=== PATIENT | female | born 1960 | race Caucasian/White ===

== ENCOUNTER 2023-11-20 21:50 | Emergency (ER) | payer MEDICARE, SELFPAY ==
[2023-11-20] VITALS (10 sets, daily range): BP systolic 104–170; BP diastolic 76–97; PULSE 72–151; RESP 13–28; TEMP 37.1; O2SAT 86–98; BMI 34.4
--- NOTE | 2023-11-20 22:09 | ECG_ITS ---
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: : 1960 Requested By: MADISON MAGANA Order Number: [id number] Reading MD: NISHI SLATER Measurements Intervals [place] Rate: 108 P: -92379 [place]: -85271 QRS: 96 QRSD: 110 T: -69 QT: 318 QTc: 382 Interpretive Statements 56219 Atrial fibrillation with rapid ventricular response [address] depression, probably digitalis effect 73441 Twave abnormality, possible inferolateral ischemia or digitalis effect 7102 Moderate right axis deviation 9150 abnormal ECG Compared to ECG 04/09/2022 14:25:17 ST (T wave) deviation now present Possible ischemia now present Right-axis deviation now present Sinus rhythm no longer present Electronically Signed On 11-21-2023 21:41:51 EDT by NISHI SLATER
--- NOTE | 2023-11-20 22:09 | XR_ITS ---
The [address] [address] Patient Name: KAYLA HEATH MRN: [id number] date: 1960 Sex: F Assigned Patient Location: ER Current Patient Location: ER Accession/Order Number: [id number] Exam Date: 11/20/2023 22:33 Report Date: 11/20/2023 22:56 At the request of: YASMIN NICHOLS Procedure: XR chest 1V EXAM: XR chest 1V HISTORY: shortness of breath COMPARISON: None. TECHNIQUE: Chest X-ray AP, 1 view FINDINGS: Support devices: Median sternotomy wires are in place. Lungs/pleura: No consolidation, effusion, or pneumothorax. Heart and mediastinum: Mild cardiomegaly. Pericardial effusion cannot be excluded. Echocardiography is recommended if clinically warranted. Bones: No acute abnormality identified. XR/XR chest 1V Impression: Mild cardiomegaly. Pericardial effusion cannot be excluded. Echocardiography is recommended if clinically warranted. Electronically authenticated by: RUSTY WOOD Date: 11/20/2023 22:56
--- NOTE | 2023-11-20 22:12 | ED_ITS ---
HPI - General Adult General Chief complaint: Nausea/Vomiting/Diarrhea Stated complaint: VOMITING Time Seen by Provider: 11/20/23 21:58 Source: patient Mode of arrival: ambulance Limitations: no limitations History of Present Illness HPI narrative: Patient arrived by EMS from home with increasing shortness of breath and vomiting. Patient developed cough, fatigue and achiness yesterday. Today she developed headache, nausea and vomiting. Daughter with similar symptoms at home. Patient called Dr Mccormack and he called in antibiotics for the patient. She told me that she has not been able to take her cardiac meds.Hx of CAD/CABG. She denied any chest pain, pressure or tightness. Denied history of AFib or pulmonary disease. 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 EMS started peripheral IV access, give the patient IV Zofran and started normal saline IV fluid bolus. Related Data Home Medications Medication Instructions Recorded Confirmed atorvastatin 20 mg tablet 20 mg PO DAILY 11/20/23 11/20/23 ezetimibe 10 mg tablet 10 mg PO DAILY 11/20/23 11/20/23 ibuprofen 800 mg tablet 800 mg PO Q6H PRN fever or pain 11/20/23 11/20/23 lisinopril 40 mg tablet 40 mg PO DAILY 11/20/23 11/20/23 metformin 500 mg tablet 500 mg PO BID 11/20/23 11/20/23 metoprolol tartrate 50 mg tablet 50 mg PO Q12H 11/20/23 11/20/23 pantoprazole 40 mg tablet,delayed 40 mg PO DAILY 11/20/23 11/20/23 release semaglutide 0.25 mg or 0.5 mg (2 0.25 mg subcut .weekly 11/20/23 11/20/23 mg/3 mL) subcutaneous pen injector (Ozempic) Allergies Allergy/AdvReac Type Severity Reaction Status Date / Time No Known Drug Allergies Allergy Verified 11/20/23 21:54 PFSH PFSH Social History Smoking status: Never smoker Exam Narrative Exam Narrative: Nurses notes and vital signs reviewed and patient IS hypoxic with room air pulse ox 86%. afebrile General: uncomfortable. Skin: Warm, dry, no pallor noted. No rash. Head: Normocephalic, atraumatic. Neck: Supple, non-tender. No cervical lymphadenopathy. No meningismus. Eye: Pupils are equal, round and EOMI. No scleral icterus. Ears, Nose, Mouth, and Throat: Oral mucosa is dry Cardiovascular: Irregular rhythm with borderline tachycardia Respiratory: No accessory muscle use or respiratory distress. Lungs with diffuse end expiratory wheezing and scattered rhonchi Back: No CVA tenderness Musculoskeletal: normal ROM, no calf or popliteal tenderness, no lower extremity edema/swelling GI: Abdomen is soft, non-distended. Normal bowel sounds. No tenderness to palpation. No rebound, guarding, or rigidity noted. Neurological: A&O x4. No cranial nerve dysfunction observed. No truncal ataxia. Moves all extremities. Sensation intact. Psychiatric: Cooperative and interactive. Normal mood and affect. Constitutional Vital Signs, click to edit/add: Last Vital Signs Temp 98.8 F 11/20/23 21:51 Pulse 112 H 11/20/23 23:29 Resp 13 11/20/23 23:29 BP 104/76 11/20/23 23:29 Pulse Ox 94 L 11/20/23 23:29 O2 Del Method Nasal Cannula 11/20/23 22:00 O2 Flow Rate 4 11/20/23 22:00 Course Vital Signs Vital signs: Vital Signs Temperature 98.8 F 11/20/23 21:51 Pulse Rate 72 11/20/23 21:51 Respiratory Rate 18 11/20/23 21:51 Blood Pressure 170/97 H 11/20/23 21:51 Pulse Oximetry 86 L 11/20/23 21:51 Oxygen Delivery Method Room Air 11/20/23 21:51 Temperature 98.8 F 11/20/23 21:51 Pulse Rate 112 H 11/20/23 23:29 Respiratory Rate 13 11/20/23 23:29 Blood Pressure 104/76 11/20/23 23:29 Pulse Oximetry 94 L 11/20/23 23:29 Oxygen Delivery Method Nasal Cannula 11/20/23 22:00 Oxygen Delivery Flow Rate 4 11/20/23 22:00 Medical Decision Making MDM Narrative Medical decision making narrative: Patient was placed on media monitor and EKG obtained. Blood drawn and sent for evaluation, including blood cultures, procalcitonin and lactate per sepsis protocol. Urine also ordered to be obtained and sent for testing. Portable chest x-ray ordered. The patient was ordered to have an ABG and also to get a DuoNeb treatment. She was further ordered to receive IV Solu-Medrol and another liter of normal saline IV fluid. IV Toradol for pain. CBC normal. Lactate elevated at 2.7 so she was ordered to receive IV Levaquin, although her Influenza swab was positive so it is likely a viral etiology rather than baterical. CMP unremarkable. Troponin elevated at 76. BNP elevated at 14,375. CXR with mild cardiomegaly. No pulmonary edema or infiltrate noted. ABG = pH 7.3, pCO2 47, paO2 62 Patient ordered to receive heparin bolus and drip to treat her NSTEMI. The patient sees Dr. Mas, local plate maker zinc affiliated with [facility]. Call was placed to [facility] to discuss transfer and they told that they are not taking patient transfers at this time. They do not have any bed availability tonight and do not anticipate having bed availability tomorrow either. I spoke with the patient and she was agreeable to go to the nearest facility with cardiac capability which is [facility]. I spoke with Dr Greenwood - [place] [facility] and after discussing the patient's case, our inability to transfer to [facility] and the treatment initiated in the ED, he accepted the patient's transfer to their facility. Patient understands lack of bed availability at [facility] and agreed to go to nearest facility with cardiology, which [place] [facility] After I talked with Dr Greenwood the patient's [id number] panel resulted - she is positive for influenza A as noted above and was given dose of Tamiflu orally. Lab Data Lab results reviewed: Yes I reviewed the patient's lab results Labs: Lab Results 11/20/23 11/20/23 11/20/23 Range/Units 22:23 22:29 23:44 WBC 7.5 (4.0-11.0) 10^3/uL RBC 4.42 (4.20-5.40) 10^6/uL Hgb 12.5 (12.0-16.0) g/dL Hct 41.1 (36.0-48.0) % MCV 93.0 (81.0-99.0) fL MCH 28.3 (26.7-34.0) pg MCHC 30.4 (29.9-35.2) g/dL RDW 14.5 (11.0-15.0) % Plt Count 197 (150-450) 10^3/uL MPV 9.8 (9.5-13.5) fL Seg Neuts % (Manual) 87.0 Lymphocytes % (Manual) 2.0 L (20.5-60.0) % Atypical Lymphs % (Man) 5.0 % Monocytes % (Manual) 6.0 (1.7-12.0) % Eosinophils % (Manual) 0.0 L (0.9-7.0) % Basophils % (Manual) 0.0 L (0.2-2.0) % Neutrophils # (Manual) 6.52 H (1.4-6.5) 10^3/uL Lymphocytes # (Manual) 0.15 L (1.20-3.80) 10^3/uL Abs Atypical Lymphs Man 0.37 Monocytes # (Manual) 0.45 (0.30-0.80) 10^3/uL Eosinophils # (Manual) 0.00 (0.00-0.70) 10^3/uL Basophils # (Manual) 0.00 (0.00-0.10) 10^3/uL Toxic Granulation 4+ Toxic Vacuolation 1+ PT 11.8 H (9.0-11.6) sec INR 1.12 APTT 24.7 (22.3-36.2) sec Puncture Site L radial ABG pH 7.289 L* (7.350-7.450) ABG pCO2 46.9 H (35.0-45.0) mmHg ABG pO2 62.1 L (80.0-100.0) mmHg ABG HCO3 22.5 (22.0-26.0) mmol/L ABG O2 Saturation 90.0 % ABG Base Excess -4.1 L (-2.0-2.0) mmol/L Gavin Test Positive (POSITIVE) O2 Liters/Min 3 Sodium 140 (136-145) mmol/L Potassium 3.6 (3.5-5.1) mmol/L Chloride 103 (98-107) mmol/L Carbon Dioxide 24.3 (21.0-32.0) mmol/L Anion Gap 16.3 BUN 16.0 (7.0-18.0) mg/dL Creatinine 1.27 H (0.55-1.02) mg/dL Est GFR ( Amer) 52 L (>=60) Est GFR (Non-Af Amer) 43 L (>=60) BUN/Creatinine Ratio 12.6 Glucose 194 H (74-106) mg/dL Lactate 2.7 H* (0.4-2.0) mmol/L Calcium 9.1 (8.5-10.1) mg/dL Total Bilirubin 0.6 (0.2-1.0) mg/dL AST 31 (15-37) U/L ALT 33 (14-59) U/L Alkaline Phosphatase 101 (46-116) U/L Troponin I High Sens 76.4 H* (4.0-51.3) pg/mL NT-Pro-B Natriuret Pep 35311.0 H* (<=900.0) pg/mL Total Protein 6.7 (6.4-8.2) g/dL Albumin 3.0 L (3.4-5.0) g/dL Globulin 3.7 g/dL Albumin/Globulin Ratio 0.8 Procalcitonin 0.07 (0.00-0.50) ng/mL Adenovirus (PCR) Not detected (NOT DETECTE) C. pneumoniae DNA (PCR) Not detected (NOT DETECTE) Coronavirus Type OC43 Not detected (NOT DETECTE) Coronavirus Type HKU1 Not detected (NOT DETECTE) Coronavirus Type 229E Not detected (NOT DETECTE) Coronavirus Type NL63 Not detected (NOT DETECTE) Human Metapneumovir PCR Not detected (NOT DETECTE) Influ A (H1N1/09) PCR Detected A (NOT DETECTE) M. pneumoniae (PCR) Not detected (NOT DETECTE) Parainfluenza PCR Not detected (NOT DETECTE) Parainfluenza 2 (PCR) Not detected (NOT DETECTE) Parainfluenza 3 (PCR) Not detected (NOT DETECTE) Parainfluenza 4 (PCR) Not detected (NOT DETECTE) RSV (RT-PCR) Not detected (NOT DETECTE) Entero/Rhino (PCR) Not detected (NOT DETECTE) SARS-CoV-2 (PCR) Not detected (NOT DETECTE) Bordetella pertussis (PCR) Not detected (NOT DETECTE) B parapertussis DNA PCR Not detected (NOT DETECTE) Influenza Type B (PCR) Not detected (NOT DETECTE) Imaging Data Chest x-ray: Radiologist's impression: ITS Impressions Chest X-Ray 11/20/23 22:09 Impression: Mild cardiomegaly. Pericardial effusion cannot be excluded. Echocardiography is recommended if clinically warranted. Electronically authenticated by: RUSTY WOOD Date: 11/20/2023 22:56 ECG Data Attestation: I personally reviewed and interpreted this ECG as follows: Interpretation: EKG interpretation: Emergency Department physician interpretation. Rapid atrial fibrillation at 108bpm. Moderate right axis. Nonspecific T wave changes with subtle STD/TWI. No ST segment elevation or deep depression. Critical Care Time Critical Care Time Total Critical Care Time: 65 Attestation: Critical Care Time: 65 minutes, critical care time is separate from any proc edures that are performed. The following was considered in the determination of critical care but not limited to the level medical decision-making, intensive cardiac and/or respiratory monitor, frequent vital sign monitoring, evaluation of laboratory studies, evaluation of a radiographic studies, oxygen monitoring and constant monitoring. Discharge Plan Discharge Chief Complaint: Nausea/Vomiting/Diarrhea Clinical Impression: Acute non-ST elevation myocardial infarction (NSTEMI), Atrial fibrillation, new onset, Hypoxia, Influenza A Patient Disposition: [facility] Time of Disposition Decision: 23:06 Discharge Location: [facility]
[2023-11-20] MEDS: IPRATROPIUM/ALBUTEROL SULFATE 3 ML AMPUL.NEB IH (22:27)
[2023-11-20] MEDS: 0.9 % SODIUM CHLORIDE 1,000 ML 999 ML IV (22:27)
[2023-11-20] MEDS: METHYLPREDNISOLONE SOD SUCC PF 125 MG/2 ML VIAL IVP (22:27)
--- NOTE | 2023-11-20 22:27 | RESP.RT ---
Duoneb given by nursing.
[2023-11-20 22:37] LABS: Adenovirus NOT DETECTED (NOT DETECTE); Coronavirus 229E NOT DETECTED (NOT DETECTE); Coronavirus HKU1 NOT DETECTED (NOT DETECTE); Coronavirus NL63 NOT DETECTED (NOT DETECTE); Coronavirus OC43 NOT DETECTED (NOT DETECTE); Human Metapneumovirus NOT DETECTED (NOT DETECTE); Human Rhinovirus/Enterovirus NOT DETECTED (NOT DETECTE); Influenza B NOT DETECTED (NOT DETECTE); Parainfluenza Virus 1 NOT DETECTED (NOT DETECTE); Parainfluenza Virus 2 NOT DETECTED (NOT DETECTE); SARS-CoV-2 NOT DETECTED (NOT DETECTE)
[2023-11-20 22:38] LABS: Bordetella parapertussis NOT DETECTED (NOT DETECTE); Mycoplasma pneumoniae NOT DETECTED (NOT DETECTE); Parainfluenza Virus 3 NOT DETECTED (NOT DETECTE); Parainfluenza Virus 4 NOT DETECTED (NOT DETECTE); Respiratory Syncytial Virus NOT DETECTED (NOT DETECTE)
[2023-11-20 22:42] LABS: Hematocrit 41.1 % (36.0-48.0); Hemoglobin 12.5 g/dL (12.0-16.0); Mean Corpuscular HGB Conc 30.4 g/dL (29.9-35.2); Mean Corpuscular Hemoglobin 28.3 pg (26.7-34.0); Mean Platelet Volume 9.8 fL (9.5-13.5); Platelet Count 197 10^3/uL (150-450); Red Blood Count 4.42 10^6/uL (4.20-5.40); Red Cell Distribution Width 14.5 % (11.0-15.0); White Blood Count 7.5 10^3/uL (4.0-11.0)
[2023-11-20] MEDS: KETOROLAC TROMETHAMINE 30 MG/ML VIAL IVP (22:42)
[2023-11-20 23:03] LABS: Alanine Aminotransferase 33 U/L (14-59); Albumin Globulin Ratio 0.8; Alkaline Phosphatase 101 U/L (46-116); Anion Gap 16.3; Aspartate Amino Transferase 31 U/L (15-37); BUN Creatinine Ratio 12.6; Bilirubin Total 0.6 mg/dL (0.2-1.0); Calcium 9.1 mg/dL (8.5-10.1); Carbon Dioxide 24.3 mmol/L (21.0-32.0); Chloride 103 mmol/L (98-107); Estimated GFR (African America 52 (>=60); Estimated GFR (Non-African Ame 43 (>=60); Globulin 3.7 g/dL; Glucose 194 mg/dL (74-106); Potassium 3.6 mmol/L (3.5-5.1); Sodium 140 mmol/L (136-145); Total Protein 6.7 g/dL (6.4-8.2)
[2023-11-20 23:12] LABS: Atypical Lymphocytes Abs Man 0.37; Lymphocytes Absolute Manual 0.15 10^3/uL (1.20-3.80); Monocytes Absolute Manual 0.45 10^3/uL (0.30-0.80); Segmented Neut Absolute Manual 6.52 10^3/uL (1.4-6.5)
[2023-11-20 23:13] LABS: PROCALCITONIN 0.07 ng/mL (0.00-0.50); Toxic Granulation 4+; Toxic Vacuolation 1+
[2023-11-20 23:16] LABS: Lactate/Lactic Acid 2.7 mmol/L (0.4-2.0); Troponin I High Sensitivity 76.4 pg/mL (4.0-51.3)
[2023-11-20] MEDS: ONDANSETRON PF 4 MG/2 ML VIAL IV (23:22)
[2023-11-20] MEDS: HYDROMORPHONE HCL 1 MG/ML CARTRIDGE IVP (23:26)
[2023-11-20 23:39] LABS: Influenza A\\H1-2009 DETECTED (NOT DETECTE)
[2023-11-20] MEDS: LEVOFLOXACIN IN DEXTROSE 5 % 750 MG/150 ML IV.SOLN 100 MG IV (23:39)
[2023-11-20 23:46] LABS: INR 1.12; Partial Thromboplastin Time 24.7 sec (22.3-36.2); Prothrombin Time 11.8 sec (9.0-11.6)
[2023-11-20 23:56] LABS: ABG PCO2 46.9 mmHg (35.0-45.0); Allen Test POSITIVE (POSITIVE); Base Excess ABG -4.1 mmol/L (-2.0-2.0); HCO3 ABG 22.5 mmol/L (22.0-26.0); O2 Mode NASAL CANNULA; PO2 ABG 62.1 mmHg (80.0-100.0)
[2023-11-20] MEDS: HEPARIN SODIUM,PORCINE/D5W 25,000 UNIT/500 ML IV.SOLN 20.1600000000000001 UNIT IV (23:56)
[2023-11-20 23:57] LABS: Liters per Minute 3; Puncture Site L RADIAL
[2023-11-20] MEDS: HEPARIN SODIUM (PORCINE) 5,000 UNIT/ML VIAL 4000 UNIT IV (23:57)
[2023-11-20 23:58] LABS: pH ABG 7.289 (7.350-7.450)
--- NOTE | 2023-11-21 00:19 | PC.NURSE ---
Patient reports N/V/D today, has sick family member in the home with the same symptoms. She was given zofran by EMS on the way to this ED and is feeling less nauseous at this time
--- NOTE | 2023-11-21 00:23 | PC.NURSE ---
Patient very uncomfortable appearing at this time. She is moaning and fidgeting in the bed. She had audible wheezes, but the biggest complaint at this time is her headache. Dr. Ortega notified.
--- NOTE | 2023-11-21 00:24 | PC.NURSE ---
Patient states that the Toradol did not help her headache at all. Dr Ortega notified.
--- NOTE | 2023-11-21 00:27 | PC.NURSE ---
Patient resting more comfortably at this time. States that the Dilaudid helped her headache and she feels that she can rest. Heparin drip started at this time.
[2023-11-21] MEDS: OSELTAMIVIR PHOSPHATE 75 MG CAPSULE PO (01:14)
== END 2023-11-21 01:41 | disposition short-term general hospital (02) ==
PROVIDERS: Emergency Provider Emergency Medicine; PCP Family Medicine
DX: I21.4 Non-ST elevation (NSTEMI) myocardial infarction (principal); I48.91 Unspecified atrial fibrillation; R09.02 Hypoxemia; J10.1 Influenza due to other identified influenza virus with other respiratory manifestations; Z20.822 Contact with and (suspected) exposure to COVID-19; I25.10 Atherosclerotic heart disease of native coronary artery without angina pectoris; Z95.1 Presence of aortocoronary bypass graft; F17.210 Nicotine dependence, cigarettes, uncomplicated; Z79.899 Other long term (current) drug therapy; Z79.84 Long term (current) use of oral hypoglycemic drugs
CPT/HCPCS: 0202U; 36415; 36600; 71045; 80053; 82805; 83605; 83880; 84145; 84484; 85007; 85027; 85610; 85730; 87040; 93005; 94640; 96361; 96365; 96375; 99285; J1170; J2930

== ENCOUNTER 2023-11-26 19:28 | Inpatient (IN) | payer MEDICARE, SELFPAY ==
[2023-11-26] VITALS (30 sets, daily range): BP systolic 82–120; BP diastolic 56–84; PULSE 55–106; RESP 12–21; TEMP 36.3; O2SAT 77–98; BMI 33.0
--- NOTE | 2023-11-26 19:53 | ECG_ITS ---
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
--- NOTE | 2023-11-26 19:54 | CT_ITS ---
The [address] [address] Patient Name: KAYLA HEATH MRN: [id number] date: 1960 Sex: F Assigned Patient Location: ER Current Patient Location: ED.MAIN Accession/Order Number: [id number] Exam Date: 11/26/2023 20:43 Report Date: 11/26/2023 21:43 At the request of: YASMIN NICHOLS Procedure: CT abdomen pelvis w con CT ABDOMEN AND PELVIS WITH CONTRAST: INDICATION: abdominal pain. COMPARISON: None. TECHNIQUE:Multiple thin section transaxial slices were acquired through the abdomen and pelvis with intravenous contrast. Coronal and sagittal reconstructed images were reviewed. Oral contrastWas not administered. FINDINGS: LOWER CHEST: There are dependent changes in the lung bases. LIVER: There is a tiny cyst in the anterior liver. GALLBLADDER AND BILIARY SYSTEM: No obvious ductal dilation. The gallbladder is not visualized and may be absent or contracted. SPLEEN: The spleen is unremarkable. PANCREAS: The pancreas is unremarkable. ADRENAL GLANDS: The left adrenal nodule measuring 1.7 cm. The right adrenal gland is within normal limits. KIDNEYS AND URETERS: There is no hydronephrosis of the kidneys.Cortical base scarring is present in both kidneys. There are nonobstructive left intrarenal calculi. Ureters are within normal limits without obstructing urologic calcification. VASCULATURE: There is heavy atherosclerotic plaque abdominal aorta without aneurysm. PERITONEUM/RETROPERITONEUM: Peritoneum/retroperitoneum is unremarkable. LYMPH NODES: No suspicious lymphadenopathy. GASTROINTESTINAL TRACT: There is no small bowel obstruction. There is a large amount retained feces in the rectal vault concerning for fecal impaction.There is very faint pericolonic fat stranding and minimal wall thickening of the distal descending colon which is concerning for colitis. There is also some enhancing wall thickening of the distal stomach which may represent gastritis.The appendix is visualized and is not inflamed. BLADDER: The urinary bladder is unremarkable. REPRODUCTIVE SYSTEM: The uterus is absent. BODY WALL: There is a small fat-containing umbilical hernia and another small fat-containing supraumbilical hernia. BONES: Postsurgical changes are present from posterior spinal fusion of L3-S1. There is retrolisthesis of L2-L3. There is severe degenerative disc disease from L1 through L3. CT/CT abdomen pelvis w con IMPRESSION: 1. Faint pericolonic fat stranding and wall thickening of the distal descending colon concerning for colitis. 2. Enhancing wall thickening of the distal stomach concerning for gastritis. Electronically authenticated by: GISELA MCKEON Date: 11/26/2023 21:43
--- NOTE | 2023-11-26 20:19 | ED.ABDPAIN1 ---
HPI - Abdominal Pain General Chief Complaint: Abdominal Pain Stated Complaint: Weakness Time Seen by Provider: 11/26/23 19:40 Source: patient Mode of arrival: ambulance Limitations: no limitations History of Present Illness HPI narrative: Patient felt like she was going to pass out as she got out of the shower. She was dizzy and felt weak all over . She did not lose consciousness or fall. She called 911. By the time that they arrived, she had midline abdominal pain. They gave her Fentanyl and zofran and started NS IVF. She arrives complaining of continued pain and nausea - she also asks for a bed ocampo - has urge to pass stool. Related Data Home Medications ?Medication ?Instructions ?Recorded ?Confirmed atorvastatin 20 mg tablet 20 mg PO DAILY 11/20/23 11/20/23 ezetimibe 10 mg tablet 10 mg PO DAILY 11/20/23 11/20/23 ibuprofen 800 mg tablet 800 mg PO Q6H PRN fever or pain 11/20/23 11/20/23 lisinopril 40 mg tablet 40 mg PO DAILY 11/20/23 11/20/23 metformin 500 mg tablet 500 mg PO BID 11/20/23 11/20/23 metoprolol tartrate 50 mg tablet 50 mg PO Q12H 11/20/23 11/20/23 pantoprazole 40 mg tablet,delayed 40 mg PO DAILY 11/20/23 11/20/23 release semaglutide 0.25 mg or 0.5 mg (2 0.25 mg subcut .weekly 11/20/23 11/20/23 mg/3 mL) subcutaneous pen injector (Ozempic) Allergies Allergy/AdvReac Type Severity Reaction Status Date / Time No Known Drug Allergies Allergy Verified 11/20/23 21:54 PFSH PFS Social History Smoking status: Never smoker Exam Narrative Exam Narrative: Nurses notes and vital signs reviewed and patient IS hypoxic - Room air pulse ox measured at 88%. She is hypotensive Afebrile General: Anxious and uncomfortable. Skin: Warm, dry, no pallor noted. No rash. Eye: Pupils are equal, round and EOMI. No scleral icterus. Ears, Nose, Mouth, and Throat: Oral mucosa is dry Cardiovascular: Regular Rate and Rhythm without murmur, gallop or rub. Respiratory: No accessory muscle use or respiratory distress. Lungs are clear to auscultation, no wheezing, rales or rhonchi Musculoskeletal: normal ROM, no calf or popliteal tenderness, no lower extremity edema/swelling GI: Abdomen is soft, non-distended. Normal bowel sounds. No Solid or pulsatile masses appreciated. Mid low tenderness to palpation. No rebound or rigidity noted, But she has some guarding. Neurological: A&O x4. No cranial nerve dysfunction observed. No truncal ataxia. Moves all extremities. Sensation intact. Psychiatric: Cooperative and interactive. Normal mood and affect. Constitutional Vital Signs, click to edit/add: Last Vital Signs Temp 97.4 F L 11/26/23 19:38 Pulse 84 11/26/23 21:33 Resp 14 11/26/23 21:33 BP 120/84 11/26/23 21:33 Pulse Ox 96 11/26/23 21:33 O2 Del Method Nasal Cannula 11/26/23 20:47 O2 Flow Rate 2 11/26/23 20:47 Course Vital Signs Vital signs: Vital Signs Pulse Rate 84 11/26/23 19:37 Respiratory Rate 16 11/26/23 19:37 Pulse Oximetry 81 L 11/26/23 19:37 Temperature 97.4 F L 11/26/23 19:38 Pulse Rate 84 11/26/23 21:33 Respiratory Rate 14 11/26/23 21:33 Blood Pressure 120/84 11/26/23 21:33 Pulse Oximetry 96 11/26/23 21:33 Oxygen Delivery Method Nasal Cannula 11/26/23 20:47 Oxygen Delivery Flow Rate 2 11/26/23 20:47 MDM - Abdominal Pain MDM Narrative Medical decision making narrative: I saw this patient last week when she had her non-ST elevation OR. She told me that they got a cardiac catheterization but found no blockage and therefore no stents were placed. She was diagnosed with new onset atrial fibrillation just discharged yesterday. On arrival To our emergency department for this visit, the patient is hypotensive. She has normal saline IV fluids running from EMS. I ordered an additional liter to be given. Patient was placed on radiation monitor and EKG obtained. Blood drawn and sent for evaluation. She was ordered to undergo CT scanning of the abdomen pelvis with IV contrast. Due to hypotension and abdominal pain there is concern for aortic aneurysm or dissection. White blood cell count mildly elevated 12.7. Normal hemoglobin and hematocrit. Normal platelets. Metabolic profile reveals normal sodium, mildly decreased potassium at 3.3, normal chloride and bicarb. BUN slightly elevated at 34. Creatinine slightly elevated at 1.7. Glucose elevated at 390. Total bilirubin elevated 1.3. AST and ALT also elevated. Alk phos normal. Lipase minimally elevated at 86. Troponin was negative. CT a/p = Pericolonic fat stranding and wall thickening of the distal descending colon concerning for colitis. She does have a large amount of retained feces in the rectal vault concerning for fecal impaction, according to the radiologist. Shortly after she arrived she passed a very large amount of regular-appearing stool. However, about 2 hours later, she passed a large amount of bloody stool after getting CT scan. She was ordered to receive IV Cipro and IV Flagyl. her BP normalized after getting the NS IVF boluses. Call placed to the tele hospitalist to discuss admission. The patient will be admitted to Dr Mccormack's service for colitis and lower GI bleed. She will be inpatient, [facility]. Lab Data Attestation: I reviewed the patient's lab results. Labs: Lab Results 11/26/23 Range/Units 20:18 WBC 12.7 H (4.0-11.0) 10^3/uL RBC 5.65 H (4.20-5.40) 10^6/uL Hgb 15.8 (12.0-16.0) g/dL Hct 52.2 H (36.0-48.0) % MCV 92.4 (81.0-99.0) fL MCH 28.0 (26.7-34.0) pg MCHC 30.3 (29.9-35.2) g/dL RDW 14.6 (11.0-15.0) % Plt Count 291 (150-450) 10^3/uL MPV 10.4 (9.5-13.5) fL Neut % (Auto) 70.7 (43.0-75.0) % Lymph % (Auto) 22.8 (20.5-60.0) % [place] % (Auto) 5.9 (1.7-12.0) % Eos % (Auto) 0.2 L (0.9-7.0) % Baso % (Auto) 0.2 (0.2-2.0) % Neut # (Auto) 8.9 H (1.4-6.5) 10^3/uL Lymph # (Auto) 2.9 (1.2-3.8) 10^3/uL [place] # (Auto) 0.8 (0.3-0.8) 10^3/uL Eos # (Auto) 0.0 (0.0-0.7) 10^3/uL Baso # (Auto) 0.0 (0.0-0.1) 10^3/uL Abs Immat Gran (auto) 0.03 (0.00-0.03) 10^3/uL Imm/Tot Granulo (auto) 0.2 (0.0-0.5) % Sodium 138 (136-145) mmol/L Potassium 3.3 L (3.5-5.1) mmol/L Chloride 98 (98-107) mmol/L Carbon Dioxide 28.8 (21.0-32.0) mmol/L Anion Gap 14.5 BUN 34.0 H (7.0-18.0) mg/dL Creatinine 1.68 H (0.55-1.02) mg/dL Est GFR ( Amer) 38 L (>=60) Est GFR (Non-Af Amer) 31 L (>=60) BUN/Creatinine Ratio 20.2 Glucose 390 H (74-106) mg/dL Calcium 9.5 (8.5-10.1) mg/dL Total Bilirubin 1.3 H (0.2-1.0) mg/dL AST 110 H (15-37) U/L ALT 142 H (14-59) U/L Alkaline Phosphatase 100 (46-116) U/L Troponin I High Sens 26.7 (4.0-51.3) pg/mL Total Protein 6.9 (6.4-8.2) g/dL Albumin 3.2 L (3.4-5.0) g/dL Globulin 3.7 g/dL Albumin/Globulin Ratio 0.9 Lipase 86.0 H (16.0-77.0) U/L Imaging Data CT scan - abdomen: Radiologist's impression: ITS Impressions Abdomen/Pelvis CT 11/26/23 19:54 IMPRESSION: 1. Faint pericolonic fat stranding and wall thickening of the distal descending colon concerning for colitis. 2. Enhancing wall thickening of the distal stomach concerning for gastritis. Electronically authenticated by: GISELA MCKEON Date: 11/26/2023 21:43 ECG Data Attestation: I personally reviewed and interpreted this ECG as follows: Interpretation: EKG interpretation: Emergency Department physician interpretation. Rate controlled atrial fibrillation at 59bpm. Normal axis, normal intervals and Nonspecific T wave changes. No ST segment elevation or depression. Discharge Plan Discharge Chief Complaint: Abdominal Pain Clinical Impression: Colitis, Abdominal pain, Acute lower GI bleeding, Leukocytosis Patient Disposition: Admitted As Inpatient Time of Disposition Decision: 22:36
[2023-11-26] MEDS: HYDROMORPHONE HCL 1 MG/ML CARTRIDGE IVP (20:22)
[2023-11-26] MEDS: 0.9 % SODIUM CHLORIDE 1,000 ML 999 ML IV (20:22)
[2023-11-26] MEDS: PROMETHAZINE HCL 25 MG/ML VIAL IV (20:22)
[2023-11-26 20:33] LABS: Basophils Percent Auto 0.2 % (0.2-2.0); Eosinophils Percent Auto 0.2 % (0.9-7.0); Hematocrit 52.2 % (36.0-48.0); Hemoglobin 15.8 g/dL (12.0-16.0); Immature Granulocytes Abs Auto 0.03 10^3/uL (0.00-0.03); Immature Granulocytes Pct Auto 0.2 % (0.0-0.5); Lymphocytes Absolute Auto 2.9 10^3/uL (1.2-3.8); Lymphocytes Percent Auto 22.8 % (20.5-60.0); Mean Corpuscular HGB Conc 30.3 g/dL (29.9-35.2); Mean Corpuscular Volume 92.4 fL (81.0-99.0); Mean Platelet Volume 10.4 fL (9.5-13.5); Monocytes Absolute Auto 0.8 10^3/uL (0.3-0.8); Monocytes Percent Auto 5.9 % (1.7-12.0); Neutrophils Absolute Auto 8.9 10^3/uL (1.4-6.5); Neutrophils Percent Auto 70.7 % (43.0-75.0); Platelet Count 291 10^3/uL (150-450); Red Blood Count 5.65 10^6/uL (4.20-5.40); Red Cell Distribution Width 14.6 % (11.0-15.0); White Blood Count 12.7 10^3/uL (4.0-11.0)
[2023-11-26 20:53] LABS: Alanine Aminotransferase 142 U/L (14-59); Albumin Globulin Ratio 0.9; Albumin Level 3.2 g/dL (3.4-5.0); Alkaline Phosphatase 100 U/L (46-116); Anion Gap 14.5; Aspartate Amino Transferase 110 U/L (15-37); BUN Creatinine Ratio 20.2; Bilirubin Total 1.3 mg/dL (0.2-1.0); Calcium 9.5 mg/dL (8.5-10.1); Carbon Dioxide 28.8 mmol/L (21.0-32.0); Chloride 98 mmol/L (98-107); Estimated GFR (African America 38 (>=60); Estimated GFR (Non-African Ame 31 (>=60); Globulin 3.7 g/dL; Glucose 390 mg/dL (74-106); Potassium 3.3 mmol/L (3.5-5.1); Sodium 138 mmol/L (136-145); Total Protein 6.9 g/dL (6.4-8.2)
[2023-11-26 20:57] LABS: Troponin I High Sensitivity 26.7 pg/mL (4.0-51.3)
--- NOTE | 2023-11-26 21:36 | PC.NURSE ---
Patient assisted with using bedpan at bedside. Staff attempted to ambulate her, but she got dizzy and was not able to move away from her bed. She had a bowel movement that was watery and contained a large amount of bright red blood. Patient was then assisted in getting back into her bed. This was reported to Dr. Ortega. She was recently started on blood thinners for new onset aFib, but she did not know what her new meds were.
[2023-11-26] MEDS: CIPROFLOXACIN IN 5 % DEXTROSE 400 MG/200 ML PIGGYBACK 200 MG IV (22:22)
[2023-11-26 22:51] LABS: Lactate/Lactic Acid 4.2 mmol/L (0.4-2.0)
[2023-11-26 23:03] LABS: Bilirubin Direct 0.6 mg/dL (0.0-0.2)
[2023-11-26] MEDS: METRONIDAZOLE/SODIUM CHLORIDE 500 MG/100 ML PREMIX 100 MG IV (23:31)
--- NOTE | 2023-11-26 23:34 | PC.NURSE ---
Patient used bedpan. Had large soft bowel movement containing a large amount of blood. Unable to obtain urine specimen due to samples being mixed. Patient cleaned up and is resting in bed awaiting her med/surg bed to be ready.
[2023-11-27] VITALS (21 sets, daily range): BP systolic 100–125; BP diastolic 60–84; PULSE 53–140; RESP 18–20; TEMP 36.3–36.8; O2SAT 90–92; BMI 32.9
[2023-11-27 05:09] LABS: Hematocrit 42.9 % (36.0-48.0); Hemoglobin 13.4 g/dL (12.0-16.0); Mean Corpuscular HGB Conc 31.2 g/dL (29.9-35.2); Mean Corpuscular Hemoglobin 28.5 pg (26.7-34.0); Mean Corpuscular Volume 91.1 fL (81.0-99.0); Mean Platelet Volume 10.3 fL (9.5-13.5); Platelet Count 198 10^3/uL (150-450); Red Blood Count 4.71 10^6/uL (4.20-5.40); Red Cell Distribution Width 14.6 % (11.0-15.0); White Blood Count 13.2 10^3/uL (4.0-11.0)
[2023-11-27 05:20] LABS: Anion Gap 10.4; Calcium 8.3 mg/dL (8.5-10.1); Carbon Dioxide 28.9 mmol/L (21.0-32.0); Chloride 104 mmol/L (98-107); Estimated GFR (African America 43 (>=60); Estimated GFR (Non-African Ame 36 (>=60); Glucose 256 mg/dL (74-106); Potassium 3.3 mmol/L (3.5-5.1); Sodium 140 mmol/L (136-145)
[2023-11-27] MEDS: METRONIDAZOLE/SODIUM CHLORIDE 500 MG/100 ML PREMIX 100 MG IV ×3 (05:25→22:20)
--- NOTE | 2023-11-27 06:21 | PC.NURSE ---
Patient has had two bloody stools since admission to the floor. C/O sharp pains in abdomen.
--- NOTE | 2023-11-27 08:18 | P.HP_ITS ---
HPI H&P: HPI History of Present Illness Chief complaint: Weakness COLITIS LOWER GI BLEED Narrative: Patient recently seen in our ER about a week or so ago with chest pain. Looks like he had acute IL NSTEMI, transferred to [facility] due to bed availability, heart cath was completed but no stent was necessary. Also found patient to have atrial fibrillation. Treated for that. Sent home, today presented to the emergency room with increasing lower abdominal pain. To the point of making her lightheaded. In ER CT scan consistent with colitis. She did have maroon- colored stool as well. Opioid HPI Opioid Management Most Recent Opioid Data: Last Pain Assessment 11/27/23 13:00 Last ORT Total Score 0 11/27/23 00:48 Last ORT Risk Category Low Risk 11/27/23 00:48 Review of Systems ROS Status of ROS 10 or more systems reviewed and unremark able except as noted in history and below [facility] Social History (Updated 11/27/23 @ 01:32 by Selma Summers) Within the past year, how often did you have a drink containing alcohol: never Within the past year, how often did you have six or more drinks on one occasion: never Score interpretation: A score less than 3 is consistent with normal alcohol consumption. Smoking status: Former smoker Non-prescribed substance use: denies use Previous occupational history: disability In a typical week, how many times do you talk on the telephone with family, friends, or neighbors: 3 or more times per week How often do you get together with friends or relatives: 3 or more times per week How often do you attend anglican or mosque services: never Little interest or pleasure in doing things: not at all Feeling down, depressed, or hopeless: not at all Feel stressed/tense/nervous/anxious/difficulty sleeping: not at all Do you think of yourself as: straight/heterosexual Gender Identity: female Meds Home Medications and Allergies Home Medications ?Medication ?Instructions ?Recorded ?Confirmed ?Type ezetimibe 10 mg tablet 10 mg PO DAILY 11/20/23 11/27/23 History ibuprofen 800 mg tablet 800 mg PO Q6H PRN fever or pain 11/20/23 11/27/23 History lisinopril 40 mg tablet 40 mg PO DAILY 11/20/23 11/27/23 History metformin 500 mg tablet 500 mg PO BID 11/20/23 11/27/23 History pantoprazole 40 mg tablet,delayed 40 mg PO DAILY 11/20/23 11/27/23 History release semaglutide 0.25 mg or 0.5 mg (2 0.25 mg subcut .weekly 11/20/23 11/27/23 History mg/3 mL) subcutaneous pen injector (Ozempic) apixaban 5 mg tablet (Eliquis) 5 mg PO BID 11/27/23 11/27/23 History aspirin 81 mg tablet,delayed 81 mg PO .QD 11/27/23 11/27/23 History release atorvastatin 40 mg tablet 40 mg PO .QHS 11/27/23 11/27/23 History empagliflozin 10 mg tablet 10 mg PO DAILY 11/27/23 11/27/23 History (Jardiance) furosemide 20 mg tablet 20 mg PO QAM 11/27/23 11/27/23 History metoprolol succinate 50 mg 50 mg PO Q12H 11/27/23 11/27/23 History tablet,extended release 24 hr potassium chloride 10 mEq 10 meq PO .QD 11/27/23 11/27/23 History capsule,extended release sacubitril 24 mg-valsartan 26 mg 1 tab PO BID 11/27/23 11/27/23 History tablet (Entresto) spironolactone 25 mg tablet 25 mg PO QAM 11/27/23 11/27/23 History Allergies Allergy/AdvReac Type Severity Reaction Status Date / Time No Known Drug Allergies Allergy Verified 11/20/23 21:54 Exam Constitutional Vital Signs, click to edit/add: Last Vital Signs Temp 98.2 F 11/27/23 08:00 Pulse 72 11/27/23 08:00 Resp 20 11/27/23 08:00 BP 125/84 11/27/23 08:00 Pulse Ox 92 L 11/27/23 08:00 O2 Del Method Room Air 11/27/23 08:00 O2 Flow Rate 2 11/26/23 20:47 Documenting provider has reviewed patient's vital signs: yes Common normals: apparent distress (mod painful distress) Chest Common normals: inspection of chest normal Respiratory Common normals: normal respiratory effort Cardio Common normals: regular rate and regular rhythm GI Common normals: Normal to inspection, nondistended, normoactive bowel sounds present and soft to palpation; tender (With mild rebound tenderness) Results Labs Labs: Short CBC 11/26/23 11/27/23 Range/Units 20:18 04:41 WBC 12.7 H 13.2 H (4.0-11.0) 10^3/uL Hgb 15.8 13.4 (12.0-16.0) g/dL Hct 52.2 H 42.9 (36.0-48.0) % Plt Count 291 198 (150-450) 10^3/uL BMP 11/26/23 11/27/23 20:18 04:41 Sodium 138 140 Potassium 3.3 L 3.3 L Chloride 98 104 Carbon Dioxide 28.8 28.9 BUN 34.0 H 37.0 H Creatinine 1.68 H 1.48 H Glucose 390 H 256 H Calcium 9.5 8.3 L Liver Function 11/26/23 11/26/23 Range/Units 20:13 20:18 Total Bilirubin 1.3 H (0.2-1.0) mg/dL Direct Bilirubin 0.6 H* (0.0-0.2) mg/dL AST 110 H (15-37) U/L ALT 142 H (14-59) U/L Alkaline Phosphatase 100 (46-116) U/L Albumin 3.2 L (3.4-5.0) g/dL Assessment and Plan Assessment and Plan (1) Acute lower GI bleeding: Plan Sinus tachycardia, hypotension, acute hypoxia, positive lactate, elevated liver function tests, elevated lipase, leukocytosis, acute renal failure-secondary to dehydration secondary to acute colitis, with acute abdomen findings on exam, resulting in severe sepsis. Blood cultures pending, has been given IV fluid resuscitation, unable to give full dose secondary to recent history of acute combined congestive heart failure related to her acute NSTEMI. CT scan with just the acute colitis. With elevated liver function test may need further evaluation of liver and gallbladder. Continue with current IV antibiotics, follow-up on blood cultures, IV fluid resuscitation. Elevated liver function test-monitor daily Leukocytosis secondary to colitis-monitor daily repeat CBC at noon, may need further adjustment in antibiotics Hypokalemia-supplement Acute renal failure--Creatinine earlier 2022 was 1.0, so the 1.68 on admission represents 168% above baseline. Continue with IV fluid resuscitation. Monitor medications that would affect kidney function. Atrial fibrillation-hold off on blood thinners currently with possible GI bleeding from the colitis, Hemoccult negative, but description would be consi stent with GI blood loss NIDDM-insulin sliding scale, holding off on oral medications History of acute combined congestive heart failure-treated as chronic congestive heart failure combined at this point, check echo results from [facility], continue with oral medications GERD-use IV Protonix With the severe sepsis as outlined above, medically necessary treatment will span [address] patient inpatient status. She is likely here 3 to 4 days.
[2023-11-27 08:44] LABS: Basophils Percent Auto 0.1 % (0.2-2.0); Eosinophils Percent Auto 0.1 % (0.9-7.0); Hematocrit 46.5 % (36.0-48.0); Hemoglobin 14.3 g/dL (12.0-16.0); Immature Granulocytes Abs Auto 0.02 10^3/uL (0.00-0.03); Immature Granulocytes Pct Auto 0.2 % (0.0-0.5); Lymphocytes Absolute Auto 1.6 10^3/uL (1.2-3.8); Lymphocytes Percent Auto 12.5 % (20.5-60.0); Mean Corpuscular HGB Conc 30.8 g/dL (29.9-35.2); Mean Corpuscular Hemoglobin 28.5 pg (26.7-34.0); Mean Corpuscular Volume 92.8 fL (81.0-99.0); Mean Platelet Volume 10.2 fL (9.5-13.5); Monocytes Absolute Auto 0.8 10^3/uL (0.3-0.8); Monocytes Percent Auto 5.9 % (1.7-12.0); Neutrophils Absolute Auto 10.4 10^3/uL (1.4-6.5); Neutrophils Percent Auto 81.2 % (43.0-75.0); Platelet Count 257 10^3/uL (150-450); Red Blood Count 5.01 10^6/uL (4.20-5.40); Red Cell Distribution Width 14.8 % (11.0-15.0); White Blood Count 12.8 10^3/uL (4.0-11.0)
[2023-11-27 08:55] LABS: C Reactive Protein <0.50 mg/dL (<=0.50)
[2023-11-27 08:57] LABS: Erythrocyte Sedimentation Rate 35 mm/hr (<=30); Partial Thromboplastin Time 20.8 sec (22.3-36.2); Prothrombin Time 10.6 sec (9.0-11.6)
[2023-11-27 08:59] LABS: Alanine Aminotransferase 108 U/L (14-59); Albumin Globulin Ratio 0.9; Albumin Level 2.8 g/dL (3.4-5.0); Alkaline Phosphatase 90 U/L (46-116); Anion Gap 13.6; Aspartate Amino Transferase 46 U/L (15-37); BUN Creatinine Ratio 23.3; Bilirubin Total 0.8 mg/dL (0.2-1.0); Calcium 8.7 mg/dL (8.5-10.1); Carbon Dioxide 28.9 mmol/L (21.0-32.0); Chloride 105 mmol/L (98-107); Estimated GFR (African America 40 (>=60); Estimated GFR (Non-African Ame 33 (>=60); Globulin 3.2 g/dL; Glucose 241 mg/dL (74-106); Potassium 3.5 mmol/L (3.5-5.1); Sodium 144 mmol/L (136-145)
[2023-11-27 09:08] LABS: Magnesium 2.3 mg/dL (1.8-2.4)
[2023-11-27] MEDS: LACTATED RINGER'S SOLUTION 1,000 ML 100 ML IV (09:19)
[2023-11-27] MEDS: CIPROFLOXACIN IN 5 % DEXTROSE 400 MG/200 ML PIGGYBACK 200 MG IV ×2 (09:19→21:02)
[2023-11-27] MEDS: HYOSCYAMINE SULFATE 0.125 MG TAB.SUBL SL ×4 (09:19→21:03)
[2023-11-27] MEDS: POTASSIUM CHLORIDE 10 MEQ ER TABLET 20 MEQ PO ×2 (09:19→21:02)
[2023-11-27 09:43] LABS: Amylase 58 U/L (25-115)
[2023-11-27 11:05] LABS: Glucometer 227 mg/dL (74-106)
[2023-11-27] MEDS: PANTOPRAZOLE SODIUM 40 MG VIAL IV (11:29)
[2023-11-27] MEDS: INSULIN ASPART 300 UNIT/3 ML PEN SUBQ ×3 (11:29→21:03)
--- NOTE | 2023-11-27 13:25 | SWNOTE1 ---
SW attempted to see pt 2x this morning, but pt was sleeping. SW went in the room this afternoon and woke pt up. Pt lives at home, I do believe with her father. Pt voiced she was very tired. SW did review IMM form with pt, pt had no questions or concerns at this time. Pt signed form. Original given to pt and copy placed in chart.
[2023-11-27 16:02] LABS: Glucometer 284 mg/dL (74-106)
--- NOTE | 2023-11-27 17:44 | PM.CACN ---
History of Present Illness History of Present Illness Consult date: 11/27/23 Requesting physician: Alejandro Mccormack Consult reason: atrial fibrillation and congestive heart failure Chief complaint: Weakness COLITIS LOWER GI BLEED Narrative: 63 yo female with a past medical history including CAD s/p 3 V CABG who presented to the hosptial with complaints of abdominal pain and bloody stools. Patient was recently evaluated in [place] and [facility] with influenza. During that hospitalization, she had mildly elevated high sensitivity troponin and was transferred to [facility] for further evaluation/management. At [facility], she was noted to be in acute systolic heart failure (EF reported to be 25%, records requested but not yet available) and atrial fibrillation. She underwent cardiac cath with no intervention. She was started on anticoagulation and GDMT for HFrEF, and she was discharged home. Patient was evaluted at bedside. At the present time, she states that she feels much better. She adamantly denies any chest pain. Shortness of breath has improved. No nausea or vomiting. She does endorse continued bloody stools. No LE edema, orthopnea, or PND. Review of Systems ROS Status of ROS 10 or more systems reviewed and unremarkable except as noted in history and below [facility] Social History Within the past year, how often did you have a drink containing alcohol: never Within the past year, how often did you have six or more drinks on one occasion: never Score interpretation: A score less than 3 is consistent with normal alcohol consumption. Smoking status: Former smoker Non-prescribed substance use: denies use Previous occupational history: disability In a typical week, how many times do you talk on the telephone with family, friends, or neighbors: 3 or more times per week How often do you get together with friends or relatives: 3 or more times per week How often do you attend gnosticist or latter day services: never Little interest or pleasure in doing things: not at all Feeling down, depressed, or hopeless: not at all Feel stressed/tense/nervous/anxious/difficulty sleeping: not at all Do you think of yourself as: straight/heterosexual Gender Identity: female Meds Home Medications and Allergies Home Medications ?Medication ?Instructions ?Recorded ?Confirmed ?Type ezetimibe 10 mg tablet 10 mg PO DAILY 11/20/23 11/27/23 History ibuprofen 800 mg tablet 800 mg PO Q6H PRN fever or pain 11/20/23 11/27/23 History lisinopril 40 mg tablet 40 mg PO DAILY 11/20/23 11/27/23 History metformin 500 mg tablet 500 mg PO BID 11/20/23 11/27/23 History pantoprazole 40 mg tablet,delayed 40 mg PO DAILY 11/20/23 11/27/23 History release semaglutide 0.25 mg or 0.5 mg (2 0.25 mg subcut .weekly 11/20/23 11/27/23 History mg/3 mL) subcutaneous pen injector (Ozempic) apixaban 5 mg tablet (Eliquis) 5 mg PO BID 11/27/23 11/27/23 History aspirin 81 mg tablet,delayed 81 mg PO .QD 11/27/23 11/27/23 History release atorvastatin 40 mg tablet 40 mg PO .QHS 11/27/23 11/27/23 History empagliflozin 10 mg tablet 10 mg PO DAILY 11/27/23 11/27/23 History (Jardiance) furosemide 20 mg tablet 20 mg PO QAM 11/27/23 11/27/23 History metoprolol succinate 50 mg 50 mg PO Q12H 11/27/23 11/27/23 History tablet,extended release 24 hr potassium chloride 10 mEq 10 meq PO .QD 11/27/23 11/27/23 History capsule,extended release sacubitril 24 mg-valsartan 26 mg 1 tab PO BID 11/27/23 11/27/23 History tablet (Entresto) spironolactone 25 mg tablet 25 mg PO QAM 11/27/23 11/27/23 History Allergies Allergy/AdvReac Type Severity Reaction Status Date / Time No Known Drug Allergies Allergy Verified 11/20/23 21:54 Exam Constitutional Vital Signs, click to edit/add: Last Vital Signs Temp 97.8 F 11/27/23 15:28 Pulse 96 H 11/27/23 16:00 Resp 20 11/27/23 15:28 BP 125/84 11/27/23 15:28 Pulse Ox 91 L 11/27/23 16:58 O2 Del Method Room Air 11/27/23 16:58 O2 Flow Rate 2 11/26/23 20:47 Documenting provider has reviewed patient's vital signs: yes Common normals: oriented x3 General appearance: cooperative and well developed Orientation/consciousness: Yes oriented to person and Yes oriented to place HENRI Common normals: normocephalic and head/scalp atraumatic Eye Common normals: PERRL and conjunctivae normal Chest Chest: symmetrical chest wall rise Respiratory Common normals: normal respiratory effort, no retractions and clear to auscultation bilaterally Cardio Common normals: regular rate, S1 normal heart sound, S2 normal heart sound, no gallops and no murmurs Rhythm: abnormal rhythm GI Common normals: soft to palpation Extremity Common normals: normal to inspection and no clubbing, cyanosis or edema Psych Insight: insight good Judgement: judgment good Results Labs and Meds Lab results: Cardiac Enzymes 11/26/23 11/27/23 Range/Units 20:18 08:30 AST 110 H 46 H (15-37) U/L Coagulation 11/27/23 Range/Units 08:30 PT 10.6 (9.0-11.6) sec APTT 20.8 L (22.3-36.2) sec CBC 11/26/23 11/27/23 11/27/23 Range/Units 20:18 04:41 08:30 WBC 12.7 H 13.2 H 12.8 H (4.0-11.0) 10^3/uL RBC 5.65 H 4.71 5.01 (4.20-5.40) 10^6/uL Hgb 15.8 13.4 14.3 (12.0-16.0) g/dL Hct 52.2 H 42.9 46.5 (36.0-48.0) % Plt Count 291 198 257 (150-450) 10^3/uL Neut # (Auto) 8.9 H 10.4 H (1.4-6.5) 10^3/uL Lymph # (Auto) 2.9 1.6 (1.2-3.8) 10^3/uL [place] # (Auto) 0.8 0.8 (0.3-0.8) 10^3/uL Eos # (Auto) 0.0 0.0 (0.0-0.7) 10^3/uL Baso # (Auto) 0.0 0.0 (0.0-0.1) 10^3/uL Comprehensive Metabolic Panel 11/26/23 11/26/23 11/27/23 Range/Units 20:13 20:18 04:41 Sodium 138 140 (136-145) mmol/L Potassium 3.3 L 3.3 L (3.5-5.1) mmol/L Chloride 98 104 (98-107) mmol/L Carbon Dioxide 28.8 28.9 (21.0-32.0) mmol/L BUN 34.0 H 37.0 H (7.0-18.0) mg/dL Creatinine 1.68 H 1.48 H (0.55-1.02) mg/dL Glucose 390 H 256 H (74-106) mg/dL Calcium 9.5 8.3 L (8.5-10.1) mg/dL Direct Bilirubin 0.6 H* (0.0-0.2) mg/dL AST 110 H (15-37) U/L ALT 142 H (14-59) U/L Alkaline Phosphatase 100 (46-116) U/L Total Protein 6.9 (6.4-8.2) g/dL Albumin 3.2 L (3.4-5.0) g/dL 11/27/23 Range/Units 08:30 Sodium 144 (136-145) mmol/L Potassium 3.5 (3.5-5.1) mmol/L Chloride 105 (98-107) mmol/L Carbon Dioxide 28.9 (21.0-32.0) mmol/L BUN 37.0 H (7.0-18.0) mg/dL Creatinine 1.59 H (0.55-1.02) mg/dL Glucose 241 H (74-106) mg/dL Calcium 8.7 (8.5-10.1) mg/dL Direct Bilirubin (0.0-0.2) mg/dL AST 46 H (15-37) U/L ALT 108 H (14-59) U/L Alkaline Phosphatase 90 (46-116) U/L Total Protein 6.0 L (6.4-8.2) g/dL Albumin 2.8 L (3.4-5.0) g/dL Intake and Output 11/27/23 11/27/23 11/27/23 07:59 15:59 23:59 Intake Total 200 / 1400 660 / 660 Output Total 400 / 400 Balance 200 / 1400 260 / 260 Intake: Oral 360 / 360 IV 200 / 1400 300 / 300 Ciprofloxacin in 5 % Dextrose 200 / 200 400 mg In 200 ml @ 200 mls/hr IV BID [facility] Rx#:[id number] Metronidazole/Sodium Chloride 200 / 200 100 / 100 500 mg In 100 ml @ 100 mls/hr IV Q8H [facility] Rx#:[id number] Output: Urine 400 / 400 Other: # Bowel Movements 2 Weight 104 kg EKG Interpretation ECG shows: atrial fibrillation Assessment and Plan Assessment and Plan (1) Acute lower GI bleeding: (2) Atrial fibrillation, new onset: (3) Acute HFrEF (heart failure with reduced ejection fraction): (4) Influenza A: (5) Colitis: (6) Coronary artery disease: Plan -Patient with atrial fibrillation diagnosed during last week admission. This is likely precipitated by Influenza A infection -CHADS VASc score 4. Patient requires anticoagulation for stroke prophlaxis. However, in the setting of acute GI bleed, would recommend GI evaluation/clearance and resume anticoagulation once cleared by GI -Treat underlying infections/sepsis -For HFrEF, patient was started on Entresto, Sprinilactone, Toprol at outside hospital. She is currently receiving entresto. She has lisinopril also listed in her medication list. Please discontinue lisinopril. Would recommend resuming Toprol for rate control and for HFrEF once able. -Patient had ischemic evaluation completed. HFrEF likely due to atrial fibrillation, and rate control is important -High intensity statin for CAD. Would recommend baby aspirin for CAD once cleared by GI -Please obtain outside cath and echo records Thank you for allowing us to pariticipate in the care of this patient. Please do not hesitate to contact [facility] with questions/ concerns. Gm Russo MD
[2023-11-27 20:41] LABS: Glucometer 240 mg/dL (74-106)
[2023-11-27] MEDS: SACUBITRIL/VALSARTAN 24 MG-26 MG TABLET 1 TAB PO (21:02)
[2023-11-28] VITALS (18 sets, daily range): BP systolic 93–150; BP diastolic 60–91; PULSE 64–160; RESP 16–20; TEMP 36.4–36.9; O2SAT 90–96
[2023-11-28] MEDS: LACTATED RINGER'S SOLUTION 1,000 ML 100 ML IV (00:22)
[2023-11-28] MEDS: ACETAMINOPHEN 500 MG TABLET 1000 MG PO ×3 (00:22→20:32)
[2023-11-28 05:00] LABS: Basophils Percent Auto 0.1 % (0.2-2.0); Eosinophils Absolute Auto 0.1 10^3/uL (0.0-0.7); Eosinophils Percent Auto 1.3 % (0.9-7.0); Hematocrit 38.3 % (36.0-48.0); Hemoglobin 11.8 g/dL (12.0-16.0); Immature Granulocytes Abs Auto 0.02 10^3/uL (0.00-0.03); Immature Granulocytes Pct Auto 0.2 % (0.0-0.5); Lymphocytes Absolute Auto 2.1 10^3/uL (1.2-3.8); Lymphocytes Percent Auto 22.6 % (20.5-60.0); Mean Corpuscular HGB Conc 30.8 g/dL (29.9-35.2); Mean Platelet Volume 10.1 fL (9.5-13.5); Monocytes Absolute Auto 0.7 10^3/uL (0.3-0.8); Monocytes Percent Auto 7.4 % (1.7-12.0); Neutrophils Absolute Auto 6.4 10^3/uL (1.4-6.5); Neutrophils Percent Auto 68.4 % (43.0-75.0); Platelet Count 151 10^3/uL (150-450); Red Blood Count 4.21 10^6/uL (4.20-5.40); Red Cell Distribution Width 14.7 % (11.0-15.0); White Blood Count 9.4 10^3/uL (4.0-11.0)
[2023-11-28 05:10] LABS: HBsAg Screen Negative (Negative); HCV Ab Non Reactive (Non Reactive); Hep A Ab, IgM Negative (Negative); Hep B Core Ab, IgM Negative (Negative)
[2023-11-28 05:16] LABS: Alanine Aminotransferase 61 U/L (14-59); Albumin Globulin Ratio 0.8; Albumin Level 2.2 g/dL (3.4-5.0); Alkaline Phosphatase 68 U/L (46-116); Anion Gap 11.5; Aspartate Amino Transferase 16 U/L (15-37); BUN Creatinine Ratio 19.1; Bilirubin Total 0.8 mg/dL (0.2-1.0); C Reactive Protein 2.99 mg/dL (<=0.50); Calcium 8.4 mg/dL (8.5-10.1); Carbon Dioxide 28.6 mmol/L (21.0-32.0); Chloride 105 mmol/L (98-107); Estimated GFR (African America 58 (>=60); Estimated GFR (Non-African Ame 48 (>=60); Globulin 2.7 g/dL; Glucose 125 mg/dL (74-106); Potassium 3.1 mmol/L (3.5-5.1); Sodium 142 mmol/L (136-145); Total Protein 4.9 g/dL (6.4-8.2)
[2023-11-28] MEDS: METRONIDAZOLE/SODIUM CHLORIDE 500 MG/100 ML PREMIX 100 MG IV ×3 (06:16→23:06)
[2023-11-28] MEDS: HYOSCYAMINE SULFATE 0.125 MG TAB.SUBL SL ×4 (06:16→21:49)
[2023-11-28 06:18] LABS: Erythrocyte Sedimentation Rate 23 mm/hr (<=30)
--- NOTE | 2023-11-28 07:22 | P.PN_ITS ---
Progress Note: Subjective Subjective Interval history: Still with significant weakness, not up and ambulating to assess dyspnea, abdominal pain persisting but improved Exam Constitutional Vital Signs, click to edit/add: Last Vital Signs Temp 98.1 F 11/28/23 04:00 Pulse 71 11/28/23 04:00 Resp 18 11/28/23 04:00 BP 132/76 11/28/23 04:00 Pulse Ox 90 L 11/28/23 04:00 O2 Del Method Room Air 11/28/23 04:00 O2 Flow Rate 2 11/26/23 20:47 Documenting provider has reviewed patient's vital signs: yes Common normals: apparent distress (mod painful distress) Chest Common normals: inspection of chest normal Respiratory Common normals: normal respiratory effort Cardio Common normals: regular rate and regular rhythm GI Common normals: Normal to inspection, nondistended, normoactive bowel sounds present and soft to palpation; tender (With mild rebound tenderness - improved) Extremity Common normals: normal to inspection, full ROM, no clubbing, cyanosis or edema and no pedal edema Progress Note: Objective Labs Labs: Short CBC 11/27/23 11/28/23 Range/Units 08:30 04:39 WBC 12.8 H 9.4 (4.0-11.0) 10^3/uL Hgb 14.3 11.8 L (12.0-16.0) g/dL Hct 46.5 38.3 (36.0-48.0) % Plt Count 257 151 (150-450) 10^3/uL BMP 11/27/23 11/28/23 08:30 04:39 Sodium 144 142 Potassium 3.5 3.1 L Chloride 105 105 Carbon Dioxide 28.9 28.6 BUN 37.0 H 22.0 H Creatinine 1.59 H 1.15 H Glucose 241 H 125 H Calcium 8.7 8.4 L Liver Function 11/27/23 11/28/23 Range/Units 08:30 04:39 Total Bilirubin 0.8 0.8 (0.2-1.0) mg/dL AST 46 H 16 (15-37) U/L ALT 108 H 61 H (14-59) U/L Alkaline Phosphatase 90 68 (46-116) U/L Albumin 2.8 L 2.2 L (3.4-5.0) g/dL Progress Note: A&P Assessment and Plan (1) Acute lower GI bleeding: (2) Atrial fibrillation, new onset: (3) Acute HFrEF (heart failure with reduced ejection fraction): (4) Influenza A: (5) Colitis: (6) Coronary artery disease: Plan Sinus tachycardia, hypotension, acute hypoxia, positive lactate, elevated liver function tests, elevated lipase, leukocytosis, acute renal failure-secondary to dehydration secondary to acute colitis, with acute abdomen findings on exam, resulting in severe sepsis. Blood cultures pending, has been given IV fluid resuscitation, unable to give full dose secondary to recent history of acute on chronic combined congestive heart failure with reduced EF related to her acute NSTEMI. White blood cell count improving, continue with current antibiotic regiment, CRP still elevated, stool testing pending Acute blood loss anemia secondary to lower gastrointestinal bleeding secondary to colitis-Down 4 g-still have waiting on stool studies-repeat CBC at 11:00 this morning, no further BMs so suspect bleeding has discontinued Elevated liver function test-monitor daily-improving, hepatitis panel negative, amylase lipase normal Leukocytosis secondary to colitis-monitor daily repeat CBC at noon, maintain current antibiotics-improving Recent influenza A-cough persisting, dry, increase benzonatate to [id number] as opposed to as needed Hypokalemia-still low, increase supplementation Acute renal failure--Creatinine earlier 2022 was 1.0, so the 1.68 on admission represents 168% above baseline. 115% above baseline today. Cut back on fluid resuscitation secondary to chronic combined congestive heart failure with reduced ejection fraction Atrial fibrillation-currently with rate controlled, but will restart metoprolol at low-dose, if stool test comes back negative for occult blood, hemoglobin stable at 11:00, will reinstitute Eliquis NIDDM-insulin sliding scale, add back to Jardiance today History of acute combined congestive heart failure recently, now with diagnosis of chronic combined congestive heart failure with reduced ejection fraction with a history of coronary artery disease status post bypass-echo report from [facility] shows reduced ejection fraction of 25%. Patient states she has not been told this in the past. On Entresto already will increase that as an outpatient per protocol every 2 weeks if tolerating GERD-use IV Protonix L With the severe sepsis and chronic combined congestive heart failure with reduced ejection fraction as outlined above, medically necessary treatment will span [address] patient inpatient status. She is likely here 3 to 4 days. ?
[2023-11-28] MEDS: CANAGLIFLOZIN 100 MG TABLET PO (08:39)
[2023-11-28] MEDS: SACUBITRIL/VALSARTAN 24 MG-26 MG TABLET 1 TAB PO ×2 (08:39→21:48)
[2023-11-28] MEDS: BENZONATATE 100 MG CAPSULE 200 MG PO ×2 (08:39→17:54)
[2023-11-28] MEDS: METOPROLOL TARTRATE 25 MG TABLET PO (08:39)
[2023-11-28] MEDS: POTASSIUM CHLORIDE 10 MEQ ER TABLET 20 MEQ PO ×3 (08:40→17:53)
[2023-11-28] MEDS: CIPROFLOXACIN IN 5 % DEXTROSE 400 MG/200 ML PIGGYBACK 200 MG IV ×2 (08:46→21:49)
[2023-11-28 08:56] LABS: Bilirubin Urine NEGATIVE (NEGATIVE); Blood Urine TRACE-I (NEGATIVE); Clarity Urine CLEAR (CLEAR); Glucose Urine UA 250 mg/dL (NEGATIVE); Ketones Urine NEGATIVE (NEGATIVE); Leukocyte Esterase Urine NEGATIVE (NEGATIVE); Nitrite Urine NEGATIVE (NEGATIVE); Protein Urine TRACE mg/dL (NEG/TRACE); Urobilinogen Urine 0.2 EU/dL (0.2-1.0); pH Urine 6.5 (5.0-9.0)
[2023-11-28 09:03] LABS: Color Urine DK YELLOW (YELLOW); Urine Microscopic Indicated YES
[2023-11-28 09:06] LABS: Bacteria Urine NONE SEEN #/HPF (NONE SEEN); RBC Urine 0-2 #/HPF (0-2); WBC Urine NONE SEEN #/HPF (NONE SEEN)
[2023-11-28 09:07] LABS: Mucus Urine NONE SEEN (NONE SEEN); Squamous Epithelial Cell Urine FEW #/LPF (NONE/RARE); Urine Culture Indicated NO
[2023-11-28] MEDS: ORPHENADRINE 60 MG/ 2 ML VIAL IV ×2 (10:44→21:48)
[2023-11-28] MEDS: PANTOPRAZOLE SODIUM 40 MG VIAL IV (10:46)
[2023-11-28 11:30] LABS: Hematocrit 40.8 % (36.0-48.0); Hemoglobin 12.4 g/dL (12.0-16.0); Mean Corpuscular HGB Conc 30.4 g/dL (29.9-35.2); Mean Corpuscular Volume 95.6 fL (81.0-99.0); Mean Platelet Volume 12.8 fL (9.5-13.5); Platelet Count 169 10^3/uL (150-450); Red Blood Count 4.27 10^6/uL (4.20-5.40); Red Cell Distribution Width 15.3 % (11.0-15.0); White Blood Count 5.8 10^3/uL (4.0-11.0)
[2023-11-28 12:32] LABS: Adenovirus F 40/41 NOT DETECTED (NOT DETECTE); Astrovirus NOT DETECTED (NOT DETECTE); Campylobacter NOT DETECTED (NOT DETECTE); Cryptosporidium NOT DETECTED (NOT DETECTE); Cyclospora cayetanensis NOT DETECTED (NOT DETECTE); Entamoeba histolytica NOT DETECTED (NOT DETECTE); Enteroaggregative E.coli NOT DETECTED (NOT DETECTE); Enteropathogenic E.coli NOT DETECTED (NOT DETECTE); Enterotoxigenic E. coli NOT DETECTED (NOT DETECTE); Giardia lamblia NOT DETECTED (NOT DETECTE); Norovirus GI/GII NOT DETECTED (NOT DETECTE); Plesiomonas shigelloides NOT DETECTED (NOT DETECTE); Rotavirus A NOT DETECTED (NOT DETECTE); Salmonella NOT DETECTED (NOT DETECTE); Sapovirus NOT DETECTED (NOT DETECTE); Shiga-like toxin-producing E.C NOT DETECTED (NOT DETECTE); Shigella/Enteroinvasive E.coli NOT DETECTED (NOT DETECTE); Vibrio NOT DETECTED (NOT DETECTE); Vibrio cholerae NOT DETECTED (NOT DETECTE); Yersinia enterocolitica NOT DETECTED (NOT DETECTE)
[2023-11-28 12:41] LABS: Glucometer 207 mg/dL (74-106)
[2023-11-28] MEDS: INSULIN ASPART 300 UNIT/3 ML PEN SUBQ ×3 (12:53→21:46)
[2023-11-28 17:05] LABS: Glucometer 218 mg/dL (74-106)
[2023-11-28] MEDS: LACTATED RINGER'S SOLUTION 1,000 ML 50 ML IV (17:56)
[2023-11-28 21:48] LABS: Glucometer 232 mg/dL (74-106)
[2023-11-28] MEDS: APIXABAN 5 MG TABLET PO (21:48)
[2023-11-29] VITALS (11 sets, daily range): BP systolic 101–131; BP diastolic 71–91; PULSE 60–96; RESP 16–18; TEMP 36.4–36.8; O2SAT 92–94; BMI 33.1
[2023-11-29] MEDS: BENZONATATE 100 MG CAPSULE 200 MG PO ×2 (00:13→09:22)
[2023-11-29] MEDS: METOPROLOL TARTRATE 25 MG TABLET PO ×2 (00:14→08:56)
[2023-11-29 04:32] LABS: Basophils Percent Auto 0.2 % (0.2-2.0); Eosinophils Absolute Auto 0.2 10^3/uL (0.0-0.7); Eosinophils Percent Auto 2.2 % (0.9-7.0); Hematocrit 37.2 % (36.0-48.0); Hemoglobin 11.5 g/dL (12.0-16.0); Immature Granulocytes Abs Auto 0.03 10^3/uL (0.00-0.03); Immature Granulocytes Pct Auto 0.4 % (0.0-0.5); Lymphocytes Absolute Auto 2.1 10^3/uL (1.2-3.8); Lymphocytes Percent Auto 25.9 % (20.5-60.0); Mean Corpuscular HGB Conc 30.9 g/dL (29.9-35.2); Mean Corpuscular Hemoglobin 28.3 pg (26.7-34.0); Mean Corpuscular Volume 91.6 fL (81.0-99.0); Mean Platelet Volume 10.2 fL (9.5-13.5); Monocytes Absolute Auto 0.6 10^3/uL (0.3-0.8); Monocytes Percent Auto 7.8 % (1.7-12.0); Neutrophils Absolute Auto 5.1 10^3/uL (1.4-6.5); Neutrophils Percent Auto 63.5 % (43.0-75.0); Platelet Count 150 10^3/uL (150-450); Red Blood Count 4.06 10^6/uL (4.20-5.40); Red Cell Distribution Width 15.2 % (11.0-15.0); White Blood Count 8.1 10^3/uL (4.0-11.0)
[2023-11-29 04:39] LABS: Erythrocyte Sedimentation Rate 39 mm/hr (<=30)
[2023-11-29] MEDS: ACETAMINOPHEN 500 MG TABLET 1000 MG PO (04:40)
[2023-11-29 04:59] LABS: Alanine Aminotransferase 43 U/L (14-59); Albumin Globulin Ratio 0.8; Albumin Level 2.1 g/dL (3.4-5.0); Alkaline Phosphatase 66 U/L (46-116); Anion Gap 8.3; Aspartate Amino Transferase 10 U/L (15-37); Bilirubin Total 0.5 mg/dL (0.2-1.0); C Reactive Protein 2.93 mg/dL (<=0.50); Calcium 8.5 mg/dL (8.5-10.1); Carbon Dioxide 28.1 mmol/L (21.0-32.0); Chloride 107 mmol/L (98-107); Estimated GFR (African America >60 (>=60); Estimated GFR (Non-African Ame 56 (>=60); Globulin 2.6 g/dL; Glucose 160 mg/dL (74-106); Potassium 3.4 mmol/L (3.5-5.1); Sodium 140 mmol/L (136-145); Total Protein 4.7 g/dL (6.4-8.2)
[2023-11-29] MEDS: METRONIDAZOLE/SODIUM CHLORIDE 500 MG/100 ML PREMIX 100 MG IV (05:46)
[2023-11-29] MEDS: HYOSCYAMINE SULFATE 0.125 MG TAB.SUBL SL ×2 (05:46→11:21)
--- NOTE | 2023-11-29 08:11 | P.DS_ITS ---
DS: Providers Provider Date of admission: 11/27/23 00:38 Primary care physician: Alejandro Mccormack MD Consults: 11/27/23 08:10 Consult to Cardiology Routine Reason for consultation: New onset a-fib Has provider been notified: No DS: Diagnosis Discharge Diagnosis (1) Acute lower GI bleeding: (2) Atrial fibrillation, new onset: (3) Acute HFrEF (heart failure with reduced ejection fraction): (4) Influenza A: (5) Colitis: (6) Coronary artery disease: Plan Sinus tachycardia, hypotension, acute hypoxia, positive lactate, elevated liver function tests, elevated lipase, leukocytosis, acute renal failure-secondary to dehydration secondary to acute colitis, with acute abdomen findings on exam, resulting in severe sepsis. Blood cultures pending, has been given IV fluid resuscitation, unable to give full dose secondary to recent history of acute on chronic combined congestive heart failure with reduced EF related to her acute NSTEMI. White blood cell count improving, continue with current antibiotic regiment, CRP still elevated, stool testing pending Acute blood loss anemia secondary to lower gastrointestinal bleeding secondary to colitis-Down 4 g-still have waiting on stool studies-repeat CBC at 11:00 this morning, no further BMs so suspect bleeding has discontinued Elevated liver function test-monitor daily-improving, hepatitis panel negative, amylase lipase normal Leukocytosis secondary to colitis-monitor daily repeat CBC at noon, maintain current antibiotics-improving Recent influenza A-cough persisting, dry, increase benzonatate to [id number] as opposed to as needed Hypokalemia-still low, increase supplementation Acute renal failure--Creatinine earlier 2022 was 1.0, so the 1.68 on admission represents 168% above baseline. 115% above baseline today. Cut back on fluid resuscitation secondary to chronic combined congestive heart failure with reduced ejection fraction Atrial fibrillation-currently with rate controlled, but will restart metoprolol at low-dose, if stool test comes back negative for occult blood, hemoglobin stable at 11:00, will reinstitute Eliquis NIDDM-insulin sliding scale, add back to Jardiance today History of acute combined congestive heart failure recently, now with diagnosis of chronic combined congestive heart failure with reduced ejection fraction with a history of coronary artery disease status post bypass-echo report from [facility] shows reduced ejection fraction of 25%. Patient states she has not been told this in the past. On Entresto already will increase that as an outpatient per protocol every 2 weeks if tolerating GERD-use IV Protonix With the severe sepsis and chronic combined congestive heart failure with reduc ed ejection fraction as outlined above, medically necessary treatment will span [address] patient inpatient status. She is likely here 3 to 4 days. ? DS: Summary Hospital Course Hospital Course: Patient admitted with increasing abdominal pain and dehydration. Found to have acute pancolitis. Treated with IV antibiotics Cipro and Flagyl. He was able to eat somewhat the following day but pain was persisting to the point that she could have has significant intake. Discussed that additional day. Cardiology was consulted due to the history of atrial fibrillation and chronic congestive heart failure with reduced ejection fraction. Agree with holding aspirin and Eliquis until bleeding can be resolved. Hemoglobin remained stable over the last 24 hours prior to discharge. Although patient without any significant abdominal pain she wants to try at home. She is able to tolerate some diet at the present time. Patient be discharged home in improving condition. Medication status. Follow-up with me in the office within the next few days. Status at Discharge Overall status at discharge: patient is not back to baseline Time Spent with Patient Time attestation: Total time spent providing and/or coordinating discharge services: Time spent: greater than 30 minutes Exam Constitutional Vital Signs, click to edit/add: Last Vital Signs Temp 97.5 F L 11/29/23 07:55 Pulse 85 11/29/23 07:55 Resp 16 11/29/23 07:55 BP 122/81 11/29/23 07:55 Pulse Ox 92 L 11/29/23 07:55 O2 Del Method Room Air 11/29/23 07:55 O2 Flow Rate 2 11/26/23 20:47 Documenting provider has reviewed patient's vital signs: yes Common normals: apparent distress (mod painful distress) Chest Common normals: inspection of chest normal Respiratory Common normals: normal respiratory effort Cardio Common normals: regular rate and regular rhythm GI Common normals: Normal to inspection, nondistended, normoactive bowel sounds present and soft to palpation; tender (With mild rebound tenderness - improved) Extremity Common normals: normal to inspection, full ROM, no clubbing, cyanosis or edema and no pedal edema DS: Data Data Completed and Pending Labs on day of discharge: Labs from last 24 hours 11/29/23 11/28/23 11/28/23 04:23 21:46 17:04 WBC 8.1 RBC 4.06 L Hgb 11.5 L Hct 37.2 MCV 91.6 MCH 28.3 MCHC 30.9 RDW 15.2 H Plt Count 150 MPV 10.2 Neut % (Auto) 63.5 Lymph % (Auto) 25.9 [place] % (Auto) 7.8 Eos % (Auto) 2.2 Baso % (Auto) 0.2 Neut # (Auto) 5.1 Lymph # (Auto) 2.1 [place] # (Auto) 0.6 Eos # (Auto) 0.2 Baso # (Auto) 0.0 Abs Immat Gran (auto) 0.03 Imm/Tot Granulo (auto) 0.4 ESR 39 H Sodium 140 Potassium 3.4 L Chloride 107 Carbon Dioxide 28.1 Anion Gap 8.3 BUN 14.0 Creatinine 1.00 Est GFR ( Amer) >60 Est GFR (Non-Af Amer) 56 L BUN/Creatinine Ratio 14.0 Glucose 160 H Calcium 8.5 Total Bilirubin 0.5 AST 10 L ALT 43 Alkaline Phosphatase 66 C-Reactive Protein 2.93 H NT-Pro-B Natriuret Pep 2480.0 H* Total Protein 4.7 L Albumin 2.1 L Globulin 2.6 Albumin/Globulin Ratio 0.8 Urine Color Urine Clarity Urine pH Ur Specific [place] Urine Protein Urine Glucose (UA) Urine Ketones Urine Occult Blood Urine Nitrite Urine Bilirubin Urine Urobilinogen Ur Leukocyte Esterase Urine RBC Urine WBC Ur Squamous Epith Cells Urine Bacteria Urine Mucus Ur Culture Indicated? Stl C. cayetanensis PCR Stool Rotavirus (PCR) Stool Adenovirus (PCR) Stool Astrovirus (PCR) Stool Campylobacter PCR Stool Cryptosporidium PCR St Sh/Enteroin Ecoli PCR Stl Enterotoxigenic E PCR Stool EPEC (PCR) Stl E. histolytica PCR Stool Giardia Lamblia PCR Stl P. shigelloides PCR Stool Salmonella PCR Stool Sapovirus (PCR) Stl Shiga-like Tx [address] Y.enterocolitica PCR Stl Vibrio cholerae PCR Stl Enteroaggr Ecoli PCR Stl Norovirus GI/GII PCR Specimen Source C. difficile Toxin A&B Vibrio Culture POC Glucose 232 H 218 H 11/28/23 11/28/23 11/28/23 12:40 12:14 11:09 WBC 5.8 RBC 4.27 Hgb 12.4 Hct 40.8 MCV 95.6 MCH 29.0 MCHC 30.4 RDW 15.3 H Plt Count 169 MPV 12.8 Neut % (Auto) Lymph % (Auto) [place] % (Auto) Eos % (Auto) Baso % (Auto) Neut # (Auto) Lymph # (Auto) [place] # (Auto) Eos # (Auto) Baso # (Auto) Abs Immat Gran (auto) Imm/Tot Granulo (auto) ESR Sodium Potassium Chloride Carbon Dioxide Anion Gap BUN Creatinine Est GFR ( Amer) Est GFR (Non-Af Amer) BUN/Creatinine Ratio Glucose Calcium Total Bilirubin AST ALT Alkaline Phosphatase C-Reactive Protein NT-Pro-B Natriuret Pep Total Protein Albumin Globulin Albumin/Globulin Ratio Urine Color Urine Clarity Urine pH Ur Specific [place] Urine Protein Urine Glucose (UA) Urine Ketones Urine Occult Blood Urine Nitrite Urine Bilirubin Urine Urobilinogen Ur Leukocyte Esterase Urine RBC Urine WBC Ur Squamous Epith Cells Urine Bacteria Urine Mucus Ur Culture Indicated? Stl C. cayetanensis PCR Not detected Stool Rotavirus (PCR) Not detected Stool Adenovirus (PCR) Not detected Stool Astrovirus (PCR) Not detected Stool Campylobacter PCR Not detected Stool Cryptosporidium PCR Not detected St Sh/Enteroin Ecoli PCR Not detected Stl Enterotoxigenic E PCR Not detected Stool EPEC (PCR) Not detected Stl E. histolytica PCR Not detected Stool Giardia Lamblia PCR Not detected Stl P. shigelloides PCR Not detected Stool Salmonella PCR Not detected Stool Sapovirus (PCR) Not detected Stl Shiga-like Tx [address] Y.enterocolitica PCR Not detected Stl Vibrio cholerae PCR Not detected Stl Enteroaggr Ecoli PCR Not detected Stl Norovirus GI/GII PCR Not detected Specimen Source Stool C. difficile Toxin A&B Not detected Vibrio Culture Not detected POC Glucose 207 H 11/26/23 08:26 WBC RBC Hgb Hct MCV MCH MCHC RDW Plt Count MPV Neut % (Auto) Lymph % (Auto) [place] % (Auto) Eos % (Auto) Baso % (Auto) Neut # (Auto) Lymph # (Auto) [place] # (Auto) Eos # (Auto) Baso # (Auto) Abs Immat Gran (auto) Imm/Tot Granulo (auto) ESR Sodium Potassium Chloride Carbon Dioxide Anion Gap BUN Creatinine Est GFR ( Amer) Est GFR (Non-Af Amer) BUN/Creatinine Ratio Glucose Calcium Total Bilirubin AST ALT Alkaline Phosphatase C-Reactive Protein NT-Pro-B Natriuret Pep Total Protein Albumin Globulin Albumin/Globulin Ratio Urine Color Dk yellow Urine Clarity Clear Urine pH 6.5 Ur Specific [place] 1.020 Urine Protein Trace Urine Glucose (UA) 250 A Urine Ketones Negative Urine Occult Blood Trace-i Urine Nitrite Negative Urine Bilirubin Negative Urine Urobilinogen 0.2 Ur Leukocyte Esterase Negative Urine RBC 0-2 Urine WBC None seen Ur Squamous Epith Cells Few A Urine Bacteria None seen Urine Mucus None seen Ur Culture Indicated? No Stl C. cayetanensis PCR Stool Rotavirus (PCR) Stool Adenovirus (PCR) Stool Astrovirus (PCR) Stool Campylobacter PCR Stool Cryptosporidium PCR St Sh/Enteroin Ecoli PCR Stl Enterotoxigenic E PCR Stool EPEC (PCR) Stl E. histolytica PCR Stool Giardia Lamblia PCR Stl P. shigelloides PCR Stool Salmonella PCR Stool Sapovirus (PCR) Stl Shiga-like Tx [address] Y.enterocolitica PCR Stl Vibrio cholerae PCR Stl Enteroaggr Ecoli PCR Stl Norovirus GI/GII PCR Specimen Source C. difficile Toxin A&B Vibrio Culture POC Glucose Preliminary micro results at discharge 11/26/23 23:32 - Preliminary Blood NO GROWTH AT 36-48 HOURS. FINAL TO FOLLOW. 11/26/23 23:00 Blood Culture Result 1 - Preliminary Blood NO GROWTH AT 36-48 HOURS. FINAL TO FOLLOW. Discharge Plan Discharge Disposition: Home, Self-Care Discharge Medications: New metoprolol tartrate 25 mg Tablet 25 mg PO BID Qty: 60 11RF ciprofloxacin HCl [Cipro] 500 mg tablet 500 mg PO BID Qty: 20 0RF Patient Comments: 11/29/23 X 10 DAYS metronidazole 500 mg tablet 500 mg PO TID Qty: 30 0RF Patient Comments: 11/29/23 X 10 DAYS Continued spironolactone 25 mg tablet 25 mg PO QAM furosemide 20 mg tablet 20 mg PO QAM aspirin 81 mg tablet,delayed release (DR/EC) 81 mg PO .QD Eliquis 5 mg tablet 5 mg PO BID Jardiance 10 mg tablet 10 mg PO DAILY Entresto 24-26 mg tablet 1 tab PO BID atorvastatin 40 mg tablet 40 mg PO .QHS ezetimibe 10 mg tablet 10 mg PO DAILY metformin 500 mg tablet 500 mg PO BID pantoprazole 40 mg tablet,delayed release (DR/EC) 40 mg PO DAILY Ozempic 0.25 mg or 0.5 mg (2 mg/3 mL) pen injector 0.25 mg SUBCUT .weekly Discontinued potassium chloride 10 mEq capsule, extended release 10 meq PO .QD metoprolol succinate 50 mg tablet extended release 24 hr 50 mg PO Q12H ibuprofen 800 mg tablet 800 mg PO Q6H PRN (Reason: fever or pain) lisinopril 40 mg tablet 40 mg PO DAILY No Action isosorbide mononitrate 60 mg tablet extended release 24 hr 90 mg PO .QD Rx Instructions: CURRENT MED PER DR GRIMES'S OFFICE 12/02/23 lisinopril 40 mg tablet 40 mg PO .QD Patient Comments: CURRENT MED PER DR GRIMES'S OFFICE 12/02/23 Print Language: Croatian Patient Instructions: Ciprofloxacin (By mouth), Metronidazole (By mouth), Colitis (ED) Forms: Portal Instructions Follow Up Appointments: DR Mccormack December 01 @ 11:00am Discharge Date/Time: 11/29/23 13:31
[2023-11-29] MEDS: METFORMIN HCL 500 MG TABLET PO (08:55)
[2023-11-29] MEDS: FUROSEMIDE 20 MG TABLET PO (08:57)
[2023-11-29] MEDS: SACUBITRIL/VALSARTAN 24 MG-26 MG TABLET 1 TAB PO (08:57)
[2023-11-29] MEDS: CANAGLIFLOZIN 100 MG TABLET PO (08:57)
[2023-11-29] MEDS: APIXABAN 5 MG TABLET PO (08:58)
[2023-11-29] MEDS: POTASSIUM CHLORIDE 10 MEQ ER TABLET 20 MEQ PO ×2 (08:58→11:21)
[2023-11-29] MEDS: INSULIN ASPART 300 UNIT/3 ML PEN SUBQ ×2 (08:59→11:39)
[2023-11-29] MEDS: CIPROFLOXACIN IN 5 % DEXTROSE 400 MG/200 ML PIGGYBACK 200 MG IV (09:01)
[2023-11-29] MEDS: ORPHENADRINE 60 MG/ 2 ML VIAL IV (09:22)
[2023-11-29] MEDS: SPIRONOLACTONE 25 MG TABLET PO (09:23)
[2023-11-29] MEDS: PANTOPRAZOLE SODIUM 40 MG VIAL IV (11:21)
[2023-11-29 11:40] LABS: Glucometer 207 mg/dL (74-106)
[2023-11-29 12:25] LABS: Hematocrit 39.2 % (36.0-48.0); Hemoglobin 12.1 g/dL (12.0-16.0); Mean Corpuscular HGB Conc 30.9 g/dL (29.9-35.2); Mean Corpuscular Hemoglobin 28.5 pg (26.7-34.0); Mean Corpuscular Volume 92.5 fL (81.0-99.0); Mean Platelet Volume 10.3 fL (9.5-13.5); Platelet Count 186 10^3/uL (150-450); Red Blood Count 4.24 10^6/uL (4.20-5.40); Red Cell Distribution Width 15.3 % (11.0-15.0); White Blood Count 10.3 10^3/uL (4.0-11.0)
[2023-11-29 13:45] LABS: Occult Blood Positive
--- NOTE | 2023-12-02 15:52 | CM.DCFOLLOWU ---
Pt readmitted to Med-surg
== END 2023-11-29 13:31 | disposition home or self-care (01) | DRG 871 ==
LOC: ER 22:36 → MS 11-27 00:39
PROVIDERS: Registered Nurse; Admitting Provider Family Medicine; Emergency Provider Emergency Medicine; PCP Family Medicine; Visit Provider Family Medicine
DX: A41.9 Sepsis, unspecified organism (principal); I21.4 Non-ST elevation (NSTEMI) myocardial infarction; I50.42 Chronic combined systolic (congestive) and diastolic (congestive) heart failure; N17.9 Acute kidney failure, unspecified; D62 Acute posthemorrhagic anemia; K52.9 Noninfective gastroenteritis and colitis, unspecified; R65.20 Severe sepsis without septic shock; R09.02 Hypoxemia; R79.89 Other specified abnormal findings of blood chemistry; E86.0 Dehydration; E87.6 Hypokalemia; I48.91 Unspecified atrial fibrillation; E11.9 Type 2 diabetes mellitus without complications; K21.9 Gastro-esophageal reflux disease without esophagitis; R74.8 Abnormal levels of other serum enzymes; R79.82 Elevated C-reactive protein (CRP); I25.10 Atherosclerotic heart disease of native coronary artery without angina pectoris; J10.1 Influenza due to other identified influenza virus with other respiratory manifestations; R10.9 Unspecified abdominal pain; D72.829 Elevated white blood cell count, unspecified; Z95.1 Presence of aortocoronary bypass graft; Z79.899 Other long term (current) drug therapy; Z87.891 Personal history of nicotine dependence; Z79.84 Long term (current) use of oral hypoglycemic drugs; Z79.82 Long term (current) use of aspirin; Z79.01 Long term (current) use of anticoagulants
CPT/HCPCS: 36415; 74177; 80048; 80053; 80074; 81001; 82150; 82248; 82948; 83605; 83690; 83735; 83880; 84484; 85025; 85027; 85610; 85652; 85730; 86140; 87040; 87086; 87493; 87507; 93005; 94667; 94761; 96361; 96365; 96366; 96367; 96375; 96376; 99285; G0328; J1170; Q9967

== ENCOUNTER 2023-12-02 11:44 | Inpatient (IN) | payer MEDICARE, SELFPAY ==
[2023-12-02] VITALS (28 sets, daily range): BP systolic 80–148; BP diastolic 43–78; PULSE 54–84; RESP 5–22; TEMP 36.4–36.7; O2SAT 60–100; BMI 33.0; BMI 32.7
--- NOTE | 2023-12-02 12:07 | ECG_ITS ---
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
[2023-12-02] MEDS: 0.9 % SODIUM CHLORIDE 1,000 ML 1000 ML IV ×2 (12:20→14:03)
[2023-12-02 12:21] LABS: Basophils Percent Auto 0.3 % (0.2-2.0); Eosinophils Absolute Auto 0.1 10^3/uL (0.0-0.7); Eosinophils Percent Auto 1.4 % (0.9-7.0); Hemoglobin 12.8 g/dL (12.0-16.0); Immature Granulocytes Abs Auto 0.03 10^3/uL (0.00-0.03); Immature Granulocytes Pct Auto 0.3 % (0.0-0.5); Lymphocytes Absolute Auto 1.9 10^3/uL (1.2-3.8); Lymphocytes Percent Auto 21.2 % (20.5-60.0); Mean Corpuscular HGB Conc 30.5 g/dL (29.9-35.2); Mean Corpuscular Hemoglobin 28.4 pg (26.7-34.0); Mean Corpuscular Volume 93.1 fL (81.0-99.0); Mean Platelet Volume 10.2 fL (9.5-13.5); Monocytes Absolute Auto 0.6 10^3/uL (0.3-0.8); Monocytes Percent Auto 6.9 % (1.7-12.0); Neutrophils Absolute Auto 6.3 10^3/uL (1.4-6.5); Neutrophils Percent Auto 69.9 % (43.0-75.0); Platelet Count 249 10^3/uL (150-450); Red Blood Count 4.51 10^6/uL (4.20-5.40); Red Cell Distribution Width 15.9 % (11.0-15.0)
--- NOTE | 2023-12-02 12:40 | PC.NURSE ---
ASSISTED DR GAN WITH OCCULT BLOOD TEST AND RECTAL EXAM. HEMOCCULT COLLECTED. NO OBVIOUS BLOOD ASSESSED AT THIS TIME
[2023-12-02 12:43] LABS: Alanine Aminotransferase 31 U/L (14-59); Albumin Globulin Ratio 0.8; Albumin Level 2.7 g/dL (3.4-5.0); Alkaline Phosphatase 78 U/L (46-116); Anion Gap 15.9; Aspartate Amino Transferase 16 U/L (15-37); BUN Creatinine Ratio 9.7; Bilirubin Direct 0.2 mg/dL (0.0-0.2); Bilirubin Total 0.7 mg/dL (0.2-1.0); Calcium 9.1 mg/dL (8.5-10.1); Carbon Dioxide 26.7 mmol/L (21.0-32.0); Chloride 104 mmol/L (98-107); Estimated GFR (African America 31 (>=60); Estimated GFR (Non-African Ame 26 (>=60); Globulin 3.4 g/dL; Glucose 198 mg/dL (74-106); Potassium 4.6 mmol/L (3.5-5.1); Sodium 142 mmol/L (136-145); Total Protein 6.1 g/dL (6.4-8.2); Troponin I High Sensitivity 14.1 pg/mL (4.0-51.3)
[2023-12-02 13:01] LABS: Occult Blood Positive
--- NOTE | 2023-12-02 13:12 | CT_ITS ---
[address] [address] Patient Name: KAYLA HEATH MRN: [id number] date: 1960 Sex: F Assigned Patient Location: ER Current Patient Location: ER Accession/Order Number: [id number] Exam Date: 12/02/2023 13:09 Report Date: 12/02/2023 13:44 At the request of: MARTHA GAN Procedure: CT abdomen pelvis wo con EXAMINATION: CT abdomen pelvis wo con HISTORY: Pain, recent colitis COMPARISON: 11/26/2023 TECHNIQUE: Axial, Coronal, and Sagittal images were created without IV contrast. Dose reduction techniques were achieved by using automated exposure control and/or adjustment of mA and/or kV according to patient size and/or use of iterative reconstruction technique. FINDINGS: LUNG BASES: Prominent heart size. Coronary atherosclerosis. Minimal left basilar opacities, atelectasis favored LIVER: No enlargement, atrophy, abnormal density, or significant focal lesion. BILIARY: The gallbladder is absent PANCREAS: No lesion, fluid collection, ductal dilatation, or atrophy. SPLEEN: No enlargement or focal lesion. ADRENALS: 2 cm left adrenal nodule, normal right KIDNEYS: Nonobstructing left nephrolithiasis. No hydronephrosis BOWEL/MESENTERY: Nonobstructive bowel gas pattern. Moderate colonic diverticulosis without evidence of acute diverticulitis. Normal appendix. Minimal wall thickening and mesenteric stranding descending/sigmoid colon AORTA/VASCULAR: No aortic aneurysm. Moderate diffuse atherosclerosis RETROPERITONEUM: No mass or adenopathy. LYMPH NODES: No adenopathy. URINARY BLADDER: No visible focal wall thickening, lesion, or calculus. PELVIC ORGANS: Hysterectomy ABDOMINAL WALL: 2 cm umbilical hernia containing fat without strangulation BONES: Posterior decompression and transpedicular fusion L3-S1. Severe degenerative changes of the spine OTHER: Negative. CT/CT abdomen pelvis wo con IMPRESSION: Stable findings possibly representing mild colitis at the junction of the descending and sigmoid colon Electronically authenticated by: LISSETTE MICHAEL Date: 12/02/2023 13:44
--- NOTE | 2023-12-02 13:54 | ED_ITS ---
HPI - General Adult General Chief complaint: Dizziness Stated complaint: LOW BLOOD PRESSURE Time Seen by Provider: 12/02/23 12:04 Source: patient Mode of arrival: Wheelchair Limitations: no limitations History of Present Illness HPI narrative: 63-year-old male presents to the emergency department from PCPs office for weakness and dizziness and low blood pressure. She was recently in the hospital with colitis. She has not passed any blood in her stool since she has been home. She was found to be hypotensive at her physician's office and she was directed here. No fever or vomiting. She has had increasing abdominal pain. Related Data Home Medications ?Medication ?Instructions ?Recorded ?Confirmed ezetimibe 10 mg tablet 10 mg PO DAILY 11/20/23 11/27/23 metformin 500 mg tablet 500 mg PO BID 11/20/23 11/27/23 pantoprazole 40 mg tablet,delayed 40 mg PO DAILY 11/20/23 11/27/23 release semaglutide 0.25 mg or 0.5 mg (2 0.25 mg subcut .weekly 11/20/23 11/27/23 mg/3 mL) subcutaneous pen injector (Ozempic) apixaban 5 mg tablet (Eliquis) 5 mg PO BID 11/27/23 11/27/23 aspirin 81 mg tablet,delayed 81 mg PO .QD 11/27/23 11/27/23 release atorvastatin 40 mg tablet 40 mg PO .QHS 11/27/23 11/27/23 empagliflozin 10 mg tablet 10 mg PO DAILY 11/27/23 11/27/23 (Jardiance) furosemide 20 mg tablet 20 mg PO QAM 11/27/23 11/27/23 sacubitril 24 mg-valsartan 26 mg 1 tab PO BID 11/27/23 11/27/23 tablet (Entresto) spironolactone 25 mg tablet 25 mg PO QAM 11/27/23 11/27/23 Previous Rx's ?Medication ?Instructions ?Recorded ciprofloxacin HCl 500 mg tablet 500 mg PO BID #20 tabs 11/29/23 (Cipro) metoprolol tartrate 25 mg tablet 25 mg PO BID #60 tabs 11/29/23 metronidazole 500 mg tablet 500 mg PO TID #30 tabs 11/29/23 Allergies Allergy/AdvReac Type Severity Reaction Status Date / Time No Known Drug Allergies Allergy Verified 11/20/23 21:54 Review of Systems ROS Narrative A ten point review of systems is negative except as noted above. PFSH PFSH Social History Within the past year, how often did you have a drink containing alcohol: never Within the past year, how often did you have six or more drinks on one occasion: never Score interpretation: A score less than 3 is consistent with normal alcohol consumption. Smoking status: Former smoker Non-prescribed substance use: denies use Previous occupational history: disability In a typical week, how many times do you talk on the telephone with family, friends, or neighbors: 3 or more times per week How often do you get together with friends or relatives: 3 or more times per week How often do you attend cheondoism or latter day services: never Little interest or pleasure in doing things: not at all Feeling down, depressed, or hopeless: not at all Feel stressed/tense/nervous/anxious/difficulty sleeping: not at all Do you think of yourself as: straight/heterosexual Gender Identity: female Exam Narrative Exam Narrative: Nurses note and vital signs reviewed and patient is not hypoxic. General: The patient appears in no apparent distress. Skin: Warm, dry, pallor noted. There is no rash noted. Head: Normocephalic, atraumatic Eye: Normal conjunctiva, no drainage Ears, Nose, Mouth, and Throat: oral mucosa is moist. Nares patent. Cardiovascular: Regular Rate and Rhythm Respiratory: Patient is in no distress, no accessory muscle use, lungs are clear to auscultation, no wheezing, rales or rhonchi Back: non-tender GI: Mild diffuse tenderness without mass or distention. Musculoskeletal: The patient has no evidence of calf tenderness, no pitting edema, symmetrical pulses noted bilaterally Neurological: A&O, normal speech Psychiatric: Cooperative Constitutional Vital Signs, click to edit/add: Last Vital Signs Temp 98.1 F 12/02/23 12:25 Pulse 64 12/02/23 12:49 Resp 18 12/02/23 12:49 BP 102/70 12/02/23 12:49 Pulse Ox 100 12/02/23 12:49 O2 Del Method Room Air 12/02/23 12:02 Course Vital Signs Vital signs: Vital Signs Pulse Rate 60 12/02/23 12:02 Respiratory Rate 16 12/02/23 12:02 Blood Pressure 97/54 12/02/23 12:02 Pulse Oximetry 98 12/02/23 12:02 Oxygen Delivery Method Room Air 12/02/23 12:02 Temperature 98.1 F 12/02/23 12:25 Pulse Rate 64 12/02/23 12:49 Respiratory Rate 18 12/02/23 12:49 Blood Pressure 102/70 12/02/23 12:49 Pulse Oximetry 100 12/02/23 12:49 Oxygen Delivery Method Room Air 12/02/23 12:02 Medical Decision Making MDM Narrative Medical decision making narrative: CT scan is unchanged, mild colitis present. Hemoglobin has not dropped but her creatinine is elevated so she may be dehydrated. She is being given IV fluids and her blood pressure has improved somewhat. Her hemoglobin may drop with IV hydration and she is being admitted. She was given IV Protonix. Treatment diagnosis and disposition were discussed with the patient. Differential Diagnosis Differential Diagnosis: Dehydration, anemia, GI bleed, diverticulitis, colitis, bowel perforation Lab Data Lab results reviewed: Yes I reviewed the patient's lab results Labs: Lab Results 12/02/23 12/02/23 Range/Units 12:10 12:35 WBC 9.0 (4.0-11.0) 10^3/uL RBC 4.51 (4.20-5.40) 10^6/uL Hgb 12.8 (12.0-16.0) g/dL Hct 42.0 (36.0-48.0) % MCV 93.1 (81.0-99.0) fL MCH 28.4 (26.7-34.0) pg MCHC 30.5 (29.9-35.2) g/dL RDW 15.9 H (11.0-15.0) % Plt Count 249 (150-450) 10^3/uL MPV 10.2 (9.5-13.5) fL Neut % (Auto) 69.9 (43.0-75.0) % Lymph % (Auto) 21.2 (20.5-60.0) % [place] % (Auto) 6.9 (1.7-12.0) % Eos % (Auto) 1.4 (0.9-7.0) % Baso % (Auto) 0.3 (0.2-2.0) % Neut # (Auto) 6.3 (1.4-6.5) 10^3/uL Lymph # (Auto) 1.9 (1.2-3.8) 10^3/uL [place] # (Auto) 0.6 (0.3-0.8) 10^3/uL Eos # (Auto) 0.1 (0.0-0.7) 10^3/uL Baso # (Auto) 0.0 (0.0-0.1) 10^3/uL Abs Immat Gran (auto) 0.03 (0.00-0.03) 10^3/uL Imm/Tot Granulo (auto) 0.3 (0.0-0.5) % Sodium 142 (136-145) mmol/L Potassium 4.6 (3.5-5.1) mmol/L Chloride 104 (98-107) mmol/L Carbon Dioxide 26.7 (21.0-32.0) mmol/L Anion Gap 15.9 BUN 19.0 H (7.0-18.0) mg/dL Creatinine 1.96 H (0.55-1.02) mg/dL Est GFR ( Amer) 31 L (>=60) Est GFR (Non-Af Amer) 26 L (>=60) BUN/Creatinine Ratio 9.7 Glucose 198 H (74-106) mg/dL Calcium 9.1 (8.5-10.1) mg/dL Total Bilirubin 0.7 (0.2-1.0) mg/dL Direct Bilirubin 0.2 (0.0-0.2) mg/dL AST 16 (15-37) U/L ALT 31 (14-59) U/L Alkaline Phosphatase 78 (46-116) U/L Troponin I High Sens 14.1 (4.0-51.3) pg/mL Total Protein 6.1 L (6.4-8.2) g/dL Albumin 2.7 L (3.4-5.0) g/dL Globulin 3.4 g/dL Albumin/Globulin Ratio 0.8 Stool Occult Blood Positive A Imaging Data CT scan - abdomen: Radiologist's impression: ITS Impressions Abdomen/Pelvis CT 12/02/23 13:12 IMPRESSION: Stable findings possibly representing mild colitis at the junction of the descending and sigmoid colon Electronically authenticated by: LISSETTE MICHAEL Date: 12/02/2023 13:44 Critical Care Time Critical Care Time Critical Care Time: Yes Total Critical Care Time: 40 Attestation: Due to the high probability of sudden and clinically significant deterioration in the patient's condition he/she required the highest level of my preparedness to intervene urgently I provided critical care time including documentation time, medication orders and management, reevaluation, vital sign assessment, ordering and reviewing of lab tests, ordering and reviewing of x-ray studies, and admission orders. Aggregate critical care time is 40 minutes including only time during which I was engaged in work directly related to his/her care and did not include time spent treating other patients simultaneously. Discharge Plan Discharge Chief Complaint: Dizziness Clinical Impression: GI bleed, Hypotension Patient Disposition: Admitted As Inpatient Time of Disposition Decision: 13:52 Condition: Good
[2023-12-02] MEDS: PANTOPRAZOLE SODIUM 40 MG VIAL IV ×2 (14:14→21:02)
--- NOTE | 2023-12-02 14:41 | P.HP_ITS ---
HPI H&P: HPI History of Present Illness Chief complaint: LOW BLOOD PRESSURE Narrative: Seen and elevated in the office with increasing abdominal pain. This was follow-up from her previous discharge on Saturday. In office had blood pressure of 76/52. Was referred to ER. In ER blood pressure was slightly better. Better after fluid bolus. CT scan still shows active colitis. Hemoglobin is better but she appears to be significantly dehydrated for suspecting hemoconcentration. Occult blood positive. With failed outpatient treatment of colitis will admit patient to inpatient status Opioid HPI Opioid Management Most Recent Opioid Data: Last Pain Assessment 11/29/23 12:50 Last MAR Pain Assessment 11/29/23 05:40 Last ORT Total Score 0 11/27/23 00:48 Last ORT Risk Category Low Risk 11/27/23 00:48 Review of Systems ROS Status of ROS 10 or more systems reviewed and unremark able except as noted in history and below PFSH PFSH Social History Within the past year, how often did you have a drink containing alcohol: never Within the past year, how often did you have six or more drinks on one occasion: never Score interpretation: A score less than 3 is consistent with normal alcohol co nsumption. Smoking status: Former smoker Non-prescribed substance use: denies use Previous occupational history: disability In a typical week, how many times do you talk on the telephone with family, friends, or neighbors: 3 or more times per week How often do you get together with friends or relatives: 3 or more times per week How often do you attend evangelical or sikh services: never Little interest or pleasure in doing things: not at all Feeling down, depressed, or hopeless: not at all Feel stressed/tense/nervous/anxious/difficulty sleeping: not at all Do you think of yourself as: straight/heterosexual Gender Identity: female Meds Home Medications and Allergies Home Medications ?Medication ?Instructions ?Recorded ?Confirmed ?Type ezetimibe 10 mg tablet 10 mg PO DAILY 11/20/23 11/27/23 History metformin 500 mg tablet 500 mg PO BID 11/20/23 11/27/23 History pantoprazole 40 mg tablet,delayed 40 mg PO DAILY 11/20/23 11/27/23 History release semaglutide 0.25 mg or 0.5 mg (2 0.25 mg subcut .weekly 11/20/23 11/27/23 History mg/3 mL) subcutaneous pen injector (Ozempic) apixaban 5 mg tablet (Eliquis) 5 mg PO BID 11/27/23 11/27/23 History aspirin 81 mg tablet,delayed 81 mg PO .QD 11/27/23 11/27/23 History release atorvastatin 40 mg tablet 40 mg PO .QHS 11/27/23 11/27/23 History empagliflozin 10 mg tablet 10 mg PO DAILY 11/27/23 11/27/23 History (Jardiance) furosemide 20 mg tablet 20 mg PO QAM 11/27/23 11/27/23 History sacubitril 24 mg-valsartan 26 mg 1 tab PO BID 11/27/23 11/27/23 History tablet (Entresto) spironolactone 25 mg tablet 25 mg PO QAM 11/27/23 11/27/23 History ciprofloxacin HCl 500 mg tablet 500 mg PO BID #20 tabs 11/29/23 Rx (Cipro) metoprolol tartrate 25 mg tablet 25 mg PO BID #60 tabs 11/29/23 Rx metronidazole 500 mg tablet 500 mg PO TID #30 tabs 11/29/23 Rx Allergies Allergy/AdvReac Type Severity Reaction Status Date / Time No Known Drug Allergies Allergy Verified 11/20/23 21:54 Exam Constitutional Vital Signs, click to edit/add: Last Vital Signs Temp 98.1 F 12/02/23 12:25 Pulse 71 12/02/23 14:31 Resp 16 12/02/23 14:31 BP 129/71 12/02/23 14:31 Pulse Ox 100 12/02/23 14:31 O2 Del Method Room Air 12/02/23 12:02 Documenting provider has reviewed patient's vital signs: yes Common normals: apparent distress (mod painful distress) Chest Common normals: inspection of chest normal Respiratory Common normals: normal respiratory effort Cardio Common normals: regular rhythm; irregular rate Rate: tachycardic GI Common normals: Normal to inspection, nondistended, normoactive bowel sounds present and soft to palpation; tender (With mild rebound tenderness - improved) Extremity Common normals: normal to inspection, full ROM, no clubbing, cyanosis or edema and no pedal edema Results Labs Labs: Short CBC 12/02/23 Range/Units 12:10 WBC 9.0 (4.0-11.0) 10^3/uL Hgb 12.8 (12.0-16.0) g/dL Hct 42.0 (36.0-48.0) % Plt Count 249 (150-450) 10^3/uL BMP 12/02/23 12:10 Sodium 142 Potassium 4.6 Chloride 104 Carbon Dioxide 26.7 BUN 19.0 H Creatinine 1.96 H Glucose 198 H Calcium 9.1 Liver Function 12/02/23 Range/Units 12:10 Total Bilirubin 0.7 (0.2-1.0) mg/dL Direct Bilirubin 0.2 (0.0-0.2) mg/dL AST 16 (15-37) U/L ALT 31 (14-59) U/L Alkaline Phosphatase 78 (46-116) U/L Albumin 2.7 L (3.4-5.0) g/dL Assessment and Plan Assessment and Plan (1) GI bleed: (2) Colitis: (3) Acute lower GI bleeding: Plan Sinus tachycardia, hypotension, acute renal failure-secondary to dehydration secondary to acute colitis, with acute abdomen findings on exam, serial labs, check on stool studies, IV fluid resuscitation Elevated liver function test-monitor daily Acute renal failure--Creatinine earlier 2022 was 1.0, so significant elevation from that. Will monitor daily Atrial fibrillation-hold off on blood thinners currently with possible GI bleeding from the colitis, Hemoccult negative, but description would be consistent with GI blood loss NIDDM-insulin sliding scale, holding off on oral medications History of chronic combined congestive heart failure-treated as chronic congestive heart failure combined at this point, previous echo showed ejection fraction of 25% GERD-use IV Protonix Indications for admission: Patient with recent hospitalization given IV antibiotics. Pain was slightly improved and she felt good enough to go home since she was eating, that is failed over the weekend and now presenting with acute renal failure and significant dehydration with persistent active colitis. Will change IV antibiotics, trend to stool samples, consultation to general surgery
[2023-12-02 14:52] LABS: Bilirubin Urine NEGATIVE (NEGATIVE); Blood Urine NEGATIVE (NEGATIVE); Clarity Urine CLEAR (CLEAR); Color Urine YELLOW (YELLOW); Glucose Urine UA 250 mg/dL (NEGATIVE); Ketones Urine NEGATIVE (NEGATIVE); Leukocyte Esterase Urine NEGATIVE (NEGATIVE); Nitrite Urine NEGATIVE (NEGATIVE); Protein Urine NEGATIVE (NEG/TRACE); Urobilinogen Urine 0.2 EU/dL (0.2-1.0)
[2023-12-02 15:08] LABS: Erythrocyte Sedimentation Rate 45 mm/hr (<=30)
[2023-12-02 15:14] LABS: Bacteria Urine NONE SEEN #/HPF (NONE SEEN); Mucus Urine NONE SEEN (NONE SEEN); RBC Urine NONE SEEN #/HPF (0-2); Squamous Epithelial Cell Urine FEW #/LPF (NONE/RARE); WBC Urine NONE SEEN #/HPF (NONE SEEN)
[2023-12-02 15:15] LABS: Urine Culture Indicated ALREADY ORDERED
[2023-12-02 15:24] LABS: Amylase 45 U/L (25-115); C Reactive Protein 0.84 mg/dL (<=0.50)
[2023-12-02 15:29] LABS: Lactate/Lactic Acid 3.2 mmol/L (0.4-2.0)
[2023-12-02 16:14] LABS: Troponin I High Sensitivity 13.4 pg/mL (4.0-51.3)
[2023-12-02 16:16] LABS: Lactate/Lactic Acid 2.8 mmol/L (0.4-2.0)
[2023-12-02] MEDS: LACTATED RINGER'S SOLUTION 1,000 ML 150 ML IV (16:34)
[2023-12-02 16:42] LABS: Glucometer 52 mg/dL (74-106)
[2023-12-02 17:35] LABS: Glucometer 58 mg/dL (74-106)
[2023-12-02] MEDS: PIPERACILLIN SODIUM/TAZOBACTAM 3.375 GM in 0.9 % SODIUM CHLORIDE 50 ML IV (17:48)
[2023-12-02] MEDS: VANCOMYCIN HCL 7,500 MG/150 ML BOTTLE 250 MG PO ×2 (17:49→22:17)
[2023-12-02] MEDS: ACETAMINOPHEN 500 MG TABLET 1000 MG PO (17:49)
--- NOTE | 2023-12-02 18:24 | PM.GSCN ---
History of Present Illness Consult details Consult date: 12/02/23 Reason for consult: abdominal pain Narrative: Patient with acute colitis flare. Recently admitted to the hospital last week and after improving was sent home. Unfortunately patient has continued to have abdominal pain and blood per rectum with low blood pressure. Patient had repeat CT scan done today which was reviewed and showed descending/proximal sigmoid colitis. No signs of free air or abscess collections. Patient did have Hemoccult positive study done in the ER. C. difficile is negative. Pt is positive for FLU A. Patient admitted to the primary team for IV fluids resuscitation and IV antibiotics. Discussed with primary team of recommendation to hold anticoagulation and antiplatelets at this time. Also recommended that patient will need outpatient colonoscopy in about 6 weeks. If there are any concerns for acute massive GI bleeding then a tagged red blood cell scan should be ordered and/or direct consultation with interventional radiology for angioembolization. Patient has extensive cardiac history including low ejection fraction, recent new onset A-fib and a AK last week. [facility] Medical History (Updated 12/02/23 @ 15:02 by Misty Mays) Heart attack ?I21.9 - Acute myocardial infarction, unspecified (ICD-10) Diabetes mellitus ?E11.9 - Type 2 diabetes mellitus without complications (ICD-10) Hypertension ?I10 - Essential (primary) hypertension (ICD-10) Surgical History (Updated 12/02/23 @ 15:02 by Misty Mays) Previous back surgery ?Z98.890 - Other specified postprocedural states (ICD-10) delivery delivered ?O82 - Encounter for delivery without indication (ICD-10) H/O left heart catheterization by ventricular puncture ?Z98.890 - Other specified postprocedural states (ICD-10) S/P triple vessel bypass ?Z95.1 - Presence of aortocoronary bypass graft (ICD-10) Family History (Updated 12/02/23 @ 15:03 by Misty Mays) Sister Family history of stroke Grandfather Family history of myocardial infarction Family history of cancer Grandmother Family history of myocardial infarction Mother Family history of hypertension Family history of diabetes mellitus Father Family history of COPD (chronic obstructive pulmonary disease) Social History (Updated 12/02/23 @ 15:04 by Misty Mays) Within the past year, how often did you have a drink containing alcohol: never Within the past year, how often did you have six or more drinks on one occasion: never Score interpretation: A score less than 3 is consistent with normal alcohol consumption. Smoking status: Former smoker Non-prescribed substance use: denies use Previous occupational history: disability Highest level of school completed/degree received: some college, no degree Are you now , , , , never or living with a partner: In a typical week, how many times do you talk on the telephone with family, friends, or neighbors: 3 or more times per week How often do you get together with friends or relatives: 3 or more times per week How often do you attend denominational or jewish services: never Do you belong to any clubs or organizations such as denominational groups unions, [employer] or athletic groups, or school groups: no Total score: 1 Score interpretation: A score of less than or equal to 1 indicates the most socially isolated. Little interest or pleasure in doing things: not at all Feeling down, depressed, or hopeless: not at all Feel stressed/tense/nervous/anxious/difficulty sleeping: not at all Do you think of yourself as: straight/heterosexual Gender Identity: female Meds Home Medications and Allergies Home Medications ?Medication ?Instructions ?Recorded ?Confirmed ?Type ezetimibe 10 mg tablet 10 mg PO DAILY 11/20/23 12/02/23 History metformin 500 mg tablet 500 mg PO BID 11/20/23 12/02/23 History pantoprazole 40 mg tablet,delayed 40 mg PO DAILY 11/20/23 12/02/23 History release semaglutide 0.25 mg or 0.5 mg (2 0.25 mg subcut .weekly 11/20/23 12/02/23 History mg/3 mL) subcutaneous pen injector (Ozempic) apixaban 5 mg tablet (Eliquis) 5 mg PO BID 11/27/23 12/02/23 History aspirin 81 mg tablet,delayed 81 mg PO .QD 11/27/23 12/02/23 History release atorvastatin 40 mg tablet 40 mg PO .QHS 11/27/23 12/02/23 History empagliflozin 10 mg tablet 10 mg PO DAILY 11/27/23 12/02/23 History (Jardiance) furosemide 20 mg tablet 20 mg PO QAM 11/27/23 12/02/23 History sacubitril 24 mg-valsartan 26 mg 1 tab PO BID 11/27/23 12/02/23 History tablet (Entresto) spironolactone 25 mg tablet 25 mg PO QAM 11/27/23 12/02/23 History ciprofloxacin HCl 500 mg tablet 500 mg PO BID #20 tabs 11/29/23 12/02/23 Rx (Cipro) metoprolol tartrate 25 mg tablet 25 mg PO BID #60 tabs 11/29/23 12/02/23 Rx metronidazole 500 mg tablet 500 mg PO TID #30 tabs 11/29/23 12/02/23 Rx isosorbide mononitrate 60 mg 90 mg PO .QD 12/02/23 12/02/23 History tablet,extended release 24 hr lisinopril 40 mg tablet 40 mg PO .QD 12/02/23 12/02/23 History Allergies Allergy/AdvReac Type Severity Reaction Status Date / Time No Known Drug Allergies Allergy Verified 11/20/23 21:54 Exam Constitutional Vital Signs, click to edit/add: Last Vital Signs Temp 97.5 F L 12/02/23 15:08 Pulse 84 12/02/23 18:14 Resp 18 12/02/23 15:08 BP 93/60 12/02/23 15:08 Pulse Ox 98 12/02/23 15:26 O2 Del Method Room Air 12/02/23 15:26 Results Labs Labs: Abnormal lab results 12/02/23 12/02/23 12/02/23 Range/Units 12:10 12:35 14:27 RDW 15.9 H (11.0-15.0) % ESR 45 H (<=30) mm/hr BUN 19.0 H (7.0-18.0) mg/dL Creatinine 1.96 H (0.55-1.02) mg/dL Est GFR ( Amer) 31 L (>=60) Est GFR (Non-Af Amer) 26 L (>=60) Glucose 198 H (74-106) mg/dL Lactate 3.2 H* (0.4-2.0) mmol/L C-Reactive Protein 0.84 H (<=0.50) mg/dL NT-Pro-B Natriuret Pep 1976.0 H* (<=900.0) pg/mL Total Protein 6.1 L (6.4-8.2) g/dL Albumin 2.7 L (3.4-5.0) g/dL Urine Glucose (UA) 250 A (NEGATIVE) mg/dL Ur Squamous Epith Cells Few A (NONE/RARE) #/LPF Stool Occult Blood Positive A POC Glucose (74-106) mg/dL 12/02/23 12/02/23 12/02/23 Range/Units 15:49 16:40 17:34 RDW (11.0-15.0) % ESR (<=30) mm/hr BUN (7.0-18.0) mg/dL Creatinine (0.55-1.02) mg/dL Est GFR ( Amer) (>=60) Est GFR (Non-Af Amer) (>=60) Glucose (74-106) mg/dL Lactate 2.8 H* (0.4-2.0) mmol/L C-Reactive Protein (<=0.50) mg/dL NT-Pro-B Natriuret Pep (<=900.0) pg/mL Total Protein (6.4-8.2) g/dL Albumin (3.4-5.0) g/dL Urine Glucose (UA) (NEGATIVE) mg/dL Ur Squamous Epith Cells (NONE/RARE) #/LPF Stool Occult Blood POC Glucose 52 L 58 L (74-106) mg/dL Diabetes panel 12/02/23 Range/Units 12:10 Sodium 142 (136-145) mmol/L Potassium 4.6 (3.5-5.1) mmol/L Chloride 104 (98-107) mmol/L Carbon Dioxide 26.7 (21.0-32.0) mmol/L BUN 19.0 H (7.0-18.0) mg/dL Creatinine 1.96 H (0.55-1.02) mg/dL Glucose 198 H (74-106) mg/dL Calcium 9.1 (8.5-10.1) mg/dL AST 16 (15-37) U/L ALT 31 (14-59) U/L Alkaline Phosphatase 78 (46-116) U/L Total Protein 6.1 L (6.4-8.2) g/dL Albumin 2.7 L (3.4-5.0) g/dL Calcium panel 12/02/23 Range/Units 12:10 Calcium 9.1 (8.5-10.1) mg/dL Albumin 2.7 L (3.4-5.0) g/dL Pituitary panel 12/02/23 Range/Units 12:10 Sodium 142 (136-145) mmol/L Potassium 4.6 (3.5-5.1) mmol/L Chloride 104 (98-107) mmol/L Carbon Dioxide 26.7 (21.0-32.0) mmol/L BUN 19.0 H (7.0-18.0) mg/dL Creatinine 1.96 H (0.55-1.02) mg/dL Glucose 198 H (74-106) mg/dL Calcium 9.1 (8.5-10.1) mg/dL Adrenal panel 12/02/23 Range/Units 12:10 Sodium 142 (136-145) mmol/L Potassium 4.6 (3.5-5.1) mmol/L Chloride 104 (98-107) mmol/L Carbon Dioxide 26.7 (21.0-32.0) mmol/L BUN 19.0 H (7.0-18.0) mg/dL Creatinine 1.96 H (0.55-1.02) mg/dL Glucose 198 H (74-106) mg/dL Calcium 9.1 (8.5-10.1) mg/dL Total Bilirubin 0.7 (0.2-1.0) mg/dL AST 16 (15-37) U/L ALT 31 (14-59) U/L Alkaline Phosphatase 78 (46-116) U/L Total Protein 6.1 L (6.4-8.2) g/dL Albumin 2.7 L (3.4-5.0) g/dL All other labs normal. Assessment and Plan Assessment and Plan (1) GI bleed: (2) Colitis: (3) Acute lower GI bleeding: Plan Continue IVF and IV Abx Monitor Hgb and BMs Recommend holding AC and ASA If concerns for acute ongoing bleeding consider tag RBC scan vs IR consultation for angioembolization Continue recs and management per primary Patient will need colonoscopy in about 6 weeks once recovered from this acute flare
[2023-12-02 18:50] LABS: Glucometer 56 mg/dL (74-106)
[2023-12-02] MEDS: DEXTROSE 50 %-WATER 25 GM/50 ML SYRINGE IV (18:51)
[2023-12-02 19:31] LABS: Glucometer 107 mg/dL (74-106)
[2023-12-02] MEDS: METOPROLOL TARTRATE 25 MG TABLET PO (21:01)
[2023-12-02] MEDS: SACUBITRIL/VALSARTAN 24 MG-26 MG TABLET 1 TAB PO (21:01)
[2023-12-02 21:02] LABS: Adenovirus F 40/41 NOT DETECTED (NOT DETECTE); Astrovirus NOT DETECTED (NOT DETECTE); Campylobacter NOT DETECTED (NOT DETECTE); Cryptosporidium NOT DETECTED (NOT DETECTE); Cyclospora cayetanensis NOT DETECTED (NOT DETECTE); Entamoeba histolytica NOT DETECTED (NOT DETECTE); Enteroaggregative E.coli NOT DETECTED (NOT DETECTE); Enteropathogenic E.coli NOT DETECTED (NOT DETECTE); Enterotoxigenic E. coli NOT DETECTED (NOT DETECTE); Giardia lamblia NOT DETECTED (NOT DETECTE); Norovirus GI/GII NOT DETECTED (NOT DETECTE); Plesiomonas shigelloides NOT DETECTED (NOT DETECTE); Rotavirus A NOT DETECTED (NOT DETECTE); Salmonella NOT DETECTED (NOT DETECTE); Sapovirus NOT DETECTED (NOT DETECTE); Shiga-like toxin-producing E.C NOT DETECTED (NOT DETECTE); Shigella/Enteroinvasive E.coli NOT DETECTED (NOT DETECTE); Vibrio NOT DETECTED (NOT DETECTE); Vibrio cholerae NOT DETECTED (NOT DETECTE); Yersinia enterocolitica NOT DETECTED (NOT DETECTE)
[2023-12-02 21:16] LABS: Glucometer 126 mg/dL (74-106)
[2023-12-03] VITALS (18 sets, daily range): BP systolic 92–134; BP diastolic 60–78; PULSE 55–87; RESP 16–20; TEMP 36.4–36.8; O2SAT 93–96
[2023-12-03] MEDS: PIPERACILLIN SODIUM/TAZOBACTAM 3.375 GM in 0.9 % SODIUM CHLORIDE 50 ML IV ×3 (00:46→17:09)
[2023-12-03 05:27] LABS: Basophils Percent Auto 0.3 % (0.2-2.0); Eosinophils Absolute Auto 0.1 10^3/uL (0.0-0.7); Eosinophils Percent Auto 1.6 % (0.9-7.0); Hematocrit 36.8 % (36.0-48.0); Hemoglobin 11.2 g/dL (12.0-16.0); Immature Granulocytes Abs Auto 0.02 10^3/uL (0.00-0.03); Immature Granulocytes Pct Auto 0.2 % (0.0-0.5); Lymphocytes Absolute Auto 2.5 10^3/uL (1.2-3.8); Lymphocytes Percent Auto 28.8 % (20.5-60.0); Mean Corpuscular HGB Conc 30.4 g/dL (29.9-35.2); Mean Corpuscular Hemoglobin 28.3 pg (26.7-34.0); Mean Corpuscular Volume 92.9 fL (81.0-99.0); Mean Platelet Volume 10.3 fL (9.5-13.5); Monocytes Absolute Auto 0.9 10^3/uL (0.3-0.8); Monocytes Percent Auto 10.6 % (1.7-12.0); Neutrophils Percent Auto 58.5 % (43.0-75.0); Platelet Count 209 10^3/uL (150-450); Red Blood Count 3.96 10^6/uL (4.20-5.40); Red Cell Distribution Width 15.9 % (11.0-15.0); White Blood Count 8.6 10^3/uL (4.0-11.0)
[2023-12-03 05:42] LABS: Erythrocyte Sedimentation Rate 40 mm/hr (<=30)
[2023-12-03 06:07] LABS: C Reactive Protein <0.50 mg/dL (<=0.50); Magnesium 1.6 mg/dL (1.8-2.4)
[2023-12-03 06:21] LABS: Alanine Aminotransferase 22 U/L (14-59); Albumin Globulin Ratio 0.8; Albumin Level 2.2 g/dL (3.4-5.0); Alkaline Phosphatase 62 U/L (46-116); Anion Gap 10.9; Aspartate Amino Transferase 14 U/L (15-37); BUN Creatinine Ratio 11.2; Bilirubin Total 0.5 mg/dL (0.2-1.0); Calcium 8.4 mg/dL (8.5-10.1); Carbon Dioxide 25.6 mmol/L (21.0-32.0); Chloride 109 mmol/L (98-107); Estimated GFR (African America 45 (>=60); Estimated GFR (Non-African Ame 37 (>=60); Globulin 2.9 g/dL; Glucose 50 mg/dL (74-106); Potassium 3.5 mmol/L (3.5-5.1); Sodium 142 mmol/L (136-145); Total Protein 5.1 g/dL (6.4-8.2)
[2023-12-03] MEDS: VANCOMYCIN HCL 7,500 MG/150 ML BOTTLE 250 MG PO ×4 (06:58→21:33)
[2023-12-03 07:21] LABS: Glucometer 64 mg/dL (74-106)
--- NOTE | 2023-12-03 07:25 | P.PN_ITS ---
Progress Note: Subjective Subjective Interval history: Patient feels a bit better than yesterday, not as weak as yesterday. Still very weak especially with ambulation. Did have some diarrhea overnight. Has not eaten yet this morning to know if wanting to have more diarrhea with food Issues overnight were hypoglycemia with sugars down in the 50s. Exam Constitutional Vital Signs, click to edit/add: Last Vital Signs Temp 97.5 F L 12/03/23 04:00 Pulse 72 12/03/23 06:00 Resp 18 12/03/23 04:00 BP 92/60 12/03/23 04:00 Pulse Ox 94 L 12/03/23 04:00 O2 Del Method Room Air 12/03/23 04:00 Documenting provider has reviewed patient's vital signs: yes Common normals: apparent distress (mod painful distress) Chest Common normals: inspection of chest normal Respiratory Common normals: normal respiratory effort Cardio Common normals: regular rhythm; irregular rate Rate: tachycardic GI Common normals: Normal to inspection, nondistended, normoactive bowel sounds present and soft to palpation; tender (With mild rebound tenderness ) Extremity Common normals: normal to inspection, full ROM, no clubbing, cyanosis or edema and no pedal edema Progress Note: Objective Labs Labs: Short CBC 12/02/23 12/03/23 Range/Units 12:10 04:58 WBC 9.0 8.6 (4.0-11.0) 10^3/uL Hgb 12.8 11.2 L (12.0-16.0) g/dL Hct 42.0 36.8 (36.0-48.0) % Plt Count 249 209 (150-450) 10^3/uL BMP 12/02/23 12/03/23 12:10 04:58 Sodium 142 142 Potassium 4.6 3.5 Chloride 104 109 H Carbon Dioxide 26.7 25.6 BUN 19.0 H 16.0 Creatinine 1.96 H 1.43 H Glucose 198 H 50 L Calcium 9.1 8.4 L Liver Function 12/02/23 12/03/23 Range/Units 12:10 04:58 Total Bilirubin 0.7 0.5 (0.2-1.0) mg/dL Direct Bilirubin 0.2 (0.0-0.2) mg/dL AST 16 14 L (15-37) U/L ALT 31 22 (14-59) U/L Alkaline Phosphatase 78 62 (46-116) U/L Albumin 2.7 L 2.2 L (3.4-5.0) g/dL Urine 12/02/23 Range/Units 14:27 Urine Color Yellow (YELLOW) Urine Clarity Clear (CLEAR) Urine pH 6.0 (5.0-9.0) Ur Specific [place] 1.020 (1.005-1.025) Urine Protein Negative (NEG/TRACE) mg/dL Urine Glucose (UA) 250 A (NEGATIVE) mg/dL Progress Note: A&P Assessment and Plan (1) GI bleed: (2) Colitis: (3) Acute lower GI bleeding: Plan Sinus tachycardia, hypotension, acute renal failure-secondary to dehydration(baseline creatinine is 1 for her, creatinine on admission 1.96 so is 196% above baseline) secondary to acute colitis, with acute abdomen findings on exam, serial labs, check on stool studies, IV fluid resuscitation -review consult to general surgery Elevated liver function test-monitor daily stable Acute renal failure--Creatinine earlier 2022 was 1.0, so significant elevation from that. Will monitor daily improved Atrial fibrillation-hold off on blood thinners currently with possible GI bleeding from the colitis, Hemoccult is positive, hemoglobin down slightly today, more likely related to delusional. As opposed to active bleeding NIDDM-insulin sliding scale, holding off on oral medications-significant hypoglycemia overnight History of chronic combined congestive heart failure-treated as chronic congest roberto heart failure combined at this point, previous echo showed ejection fraction of 25%-BNP fairly stable for her GERD-use IV Protonix Indications for admission: Patient with recent hospitalization given IV antibiotics. Pain was slightly improved and she felt good enough to go home since she was eating, that is failed over the weekend and now presenting with acute renal failure and significant dehydration with persistent active colitis. Will change IV antibiotics, trend to stool samples, consultation to general surgery-medically necessary treatment will span 2 to 3 days. ?
--- NOTE | 2023-12-03 07:27 | PM.GSPN ---
Progress Note: A&P Assessment and Plan (1) GI bleed: (2) Colitis: (3) Acute lower GI bleeding: Plan Continue IVF and IV Abx Monitor Hgb and BMs Recommend holding AC and ASA until d/c or Hgb remains stable after 3-4 checks with no signs of bloody BMs If concerns for acute ongoing bleeding consider tag RBC scan vs IR consultation for angioembolization Continue recs and management per primary Patient will need colonoscopy in about 6 weeks once recovered from this acute flare. Reach out to general surgery as needed. Thank you Subjective Subjective Interval history: Patient is a okay this a.m. She still is feeling slightly lightheaded when she stands up and was noted to have low blood sugars this morning. Patient had a bowel movement yesterday which was grossly nonbloody. Patient states her abdominal discomfort is about the same, not too bad. She mainly just feels a little nauseous at times and decreased appetite. This colonoscopy was about 7 to 8 years ago and as far she knows nothing was acutely abnormal about it. She does state that she has a brother that had most of his colon removed she is unsure for what reason but does not believe it was for cancer. She is not sure if anybody in her family has ever had ulcerative colitis or Crohn's but she believes her brother has had fistulas. Encouraged the patient to sit up in the chair and stay active and keep up with the oral liquid intake and protein. Exam Constitutional Vital Signs, click to edit/add: Last Vital Signs Temp 97.5 F L 12/03/23 04:00 Pulse 72 12/03/23 06:00 Resp 18 12/03/23 04:00 BP 92/60 12/03/23 04:00 Pulse Ox 94 L 12/03/23 04:00 O2 Del Method Room Air 12/03/23 04:00 Common normals: no apparent distress and oriented x3 General appearance: cooperative Nutritional appearance: obese HENMT Common normals: normocephalic Respiratory Common normals: normal respiratory effort, no retractions and no use of accessory muscles Cardio Common normals: regular rate and regular rhythm GI Common normals: soft to palpation and non-tender Palpation: guarding and rigid Extremity Common normals: normal to inspection and normal capillary refill Psych Common normals: cooperative and affect normal
[2023-12-03 07:40] LABS: Glucometer 62 mg/dL (74-106)
[2023-12-03 08:02] LABS: Glucometer 65 mg/dL (74-106)
[2023-12-03] MEDS: LACTATED RINGER'S SOLUTION 1,000 ML 100 ML IV ×2 (08:06→12:06)
[2023-12-03] MEDS: DEXTROSE/DEXTRIN/MALTOSE 31 GM GEL.INSTANT GLUCOSE PO (08:07)
[2023-12-03 08:54] LABS: Glucometer 96 mg/dL (74-106)
--- NOTE | 2023-12-03 08:55 | CM.NOTE ---
Important Message From Medicare discussed with pt, pt verbalizes understanding and signs paper. Original given to pt and copy placed on pt's chart.
[2023-12-03] MEDS: METOPROLOL TARTRATE 25 MG TABLET PO ×2 (10:17→21:28)
[2023-12-03] MEDS: ENSURE HP 237 ML LIQUID PO ×2 (10:17→21:27)
[2023-12-03] MEDS: MAGNESIUM OXIDE 400 MG TABLET PO (10:17)
[2023-12-03] MEDS: SACUBITRIL/VALSARTAN 24 MG-26 MG TABLET 1 TAB PO ×2 (10:17→21:27)
[2023-12-03 11:09] LABS: Glucometer 168 mg/dL (74-106)
[2023-12-03] MEDS: ACETAMINOPHEN 500 MG TABLET 1000 MG PO (14:56)
[2023-12-03 16:23] LABS: Glucometer 158 mg/dL (74-106)
[2023-12-03 20:38] LABS: Glucometer 150 mg/dL (74-106)
[2023-12-03] MEDS: PANTOPRAZOLE SODIUM 40 MG VIAL IV (21:27)
[2023-12-04] VITALS (22 sets, daily range): BP systolic 92–147; BP diastolic 62–95; PULSE 41–106; RESP 18–20; TEMP 36.4–36.7; O2SAT 92–96
[2023-12-04] MEDS: PIPERACILLIN SODIUM/TAZOBACTAM 3.375 GM in 0.9 % SODIUM CHLORIDE 50 ML IV ×3 (00:07→17:20)
[2023-12-04] MEDS: VANCOMYCIN HCL 7,500 MG/150 ML BOTTLE 250 MG PO ×4 (05:14→21:11)
[2023-12-04 05:46] LABS: Basophils Percent Auto 0.5 % (0.2-2.0); Eosinophils Absolute Auto 0.1 10^3/uL (0.0-0.7); Eosinophils Percent Auto 1.8 % (0.9-7.0); Hematocrit 36.9 % (36.0-48.0); Hemoglobin 11.4 g/dL (12.0-16.0); Immature Granulocytes Abs Auto 0.01 10^3/uL (0.00-0.03); Immature Granulocytes Pct Auto 0.2 % (0.0-0.5); Lymphocytes Absolute Auto 1.8 10^3/uL (1.2-3.8); Lymphocytes Percent Auto 29.6 % (20.5-60.0); Mean Corpuscular HGB Conc 30.9 g/dL (29.9-35.2); Mean Corpuscular Hemoglobin 28.6 pg (26.7-34.0); Mean Corpuscular Volume 92.5 fL (81.0-99.0); Mean Platelet Volume 10.5 fL (9.5-13.5); Monocytes Absolute Auto 0.7 10^3/uL (0.3-0.8); Monocytes Percent Auto 11.8 % (1.7-12.0); Neutrophils Absolute Auto 3.5 10^3/uL (1.4-6.5); Neutrophils Percent Auto 56.1 % (43.0-75.0); Platelet Count 188 10^3/uL (150-450); Red Blood Count 3.99 10^6/uL (4.20-5.40); Red Cell Distribution Width 15.9 % (11.0-15.0); White Blood Count 6.2 10^3/uL (4.0-11.0)
[2023-12-04 06:03] LABS: Erythrocyte Sedimentation Rate 48 mm/hr (<=30)
[2023-12-04] MEDS: LACTATED RINGER'S SOLUTION 1,000 ML 100 ML IV (06:07)
[2023-12-04 06:26] LABS: Alanine Aminotransferase 21 U/L (14-59); Albumin Globulin Ratio 0.7; Albumin Level 2.2 g/dL (3.4-5.0); Alkaline Phosphatase 64 U/L (46-116); Anion Gap 10.7; Aspartate Amino Transferase 16 U/L (15-37); BUN Creatinine Ratio 8.1; Bilirubin Total 0.5 mg/dL (0.2-1.0); Calcium 8.6 mg/dL (8.5-10.1); Chloride 109 mmol/L (98-107); Estimated GFR (African America >60 (>=60); Estimated GFR (Non-African Ame 50 (>=60); Globulin 3.1 g/dL; Glucose 59 mg/dL (74-106); Potassium 3.7 mmol/L (3.5-5.1); Sodium 141 mmol/L (136-145); Total Protein 5.3 g/dL (6.4-8.2)
[2023-12-04 06:27] LABS: C Reactive Protein <0.50 mg/dL (<=0.50); Magnesium 1.7 mg/dL (1.8-2.4)
[2023-12-04 07:27] LABS: Glucometer 76 mg/dL (74-106)
--- NOTE | 2023-12-04 07:49 | PM.GSPN ---
Progress Note: A&P Assessment and Plan (1) GI bleed: (2) Colitis: (3) Acute lower GI bleeding: Plan Continue IVF and complete Abx Monitor BMs Recommend holding AC and ASA until d/c or Hgb remains stable after 3-4 checks with no signs of bloody BMs Continue recs and management per primary Patient will need colonoscopy in about 6 weeks once recovered from this acute flare. Reach out to general surgery as needed. Thank you Subjective Subjective Interval history: Patient is doing better this a.m. Abdominal pain has subsided. She is still having somewhat loose stools but no gross blood that she can tell. She still is getting a little lightheaded when she stands up but her blood sugars still have been running low. Patient has no other complaints at this time. Exam Constitutional Vital Signs, click to edit/add: Last Vital Signs Temp 98.1 F 12/04/23 04:00 Pulse 106 H 12/04/23 07:42 Resp 18 12/04/23 04:00 BP 122/85 12/04/23 04:00 Pulse Ox 95 12/04/23 04:00 O2 Del Method Room Air 12/04/23 04:00 Common normals: no apparent distress and oriented x3 HENMT Common normals: normocephalic Respiratory Common normals: normal respiratory effort, no retractions and no use of accessory muscles Cardio Common normals: regular rate and regular rhythm GI Common normals: Normal to inspection, nondistended, normoactive bowel sounds present, soft to palpation and non-tender Palpation: guarding and rigid Extremity Common normals: normal to inspection Neuro Common normals: moves all extremities Psych Appearance: grossly normal
--- NOTE | 2023-12-04 08:23 | P.PN_ITS ---
Progress Note: Subjective Subjective Interval history: Patient was still with significant abdominal pain but overall improved. Weakness is improved. Sugars still fluctuating and are down into the 50s again. Exam Constitutional Vital Signs, click to edit/add: Last Vital Signs Temp 98.1 F 12/04/23 04:00 Pulse 106 H 12/04/23 07:42 Resp 18 12/04/23 04:00 BP 122/85 12/04/23 04:00 Pulse Ox 95 12/04/23 04:00 O2 Del Method Room Air 12/04/23 04:00 Documenting provider has reviewed patient's vital signs: yes Common normals: apparent distress (mod painful distress) Chest Common normals: inspection of chest normal Respiratory Common normals: normal respiratory effort Cardio Common normals: regular rhythm; irregular rate Rate: tachycardic GI Common normals: Normal to inspection, nondistended, normoactive bowel sounds present and soft to palpation; tender (Rebound tenderness resolved, mild tenderness persisting) Extremity Common normals: normal to inspection, full ROM, no clubbing, cyanosis or edema and no pedal edema Progress Note: Objective Labs Labs: Short CBC 12/04/23 Range/Units 05:11 WBC 6.2 (4.0-11.0) 10^3/uL Hgb 11.4 L (12.0-16.0) g/dL Hct 36.9 (36.0-48.0) % Plt Count 188 (150-450) 10^3/uL BMP 12/04/23 05:11 Sodium 141 Potassium 3.7 Chloride 109 H Carbon Dioxide 25.0 BUN 9.0 Creatinine 1.11 H Glucose 59 L Calcium 8.6 Liver Function 12/04/23 Range/Units 05:11 Total Bilirubin 0.5 (0.2-1.0) mg/dL AST 16 (15-37) U/L ALT 21 (14-59) U/L Alkaline Phosphatase 64 (46-116) U/L Albumin 2.2 L (3.4-5.0) g/dL Progress Note: A&P Assessment and Plan (1) GI bleed: (2) Colitis: (3) Acute lower GI bleeding: Plan Admission wiht Sinus tachycardia, hypotension, acute renal failure-secondary to dehydration(baseline creatinine is 1 for her, creatinine on admission 1.96 so is 196% above baseline) secondary to acute colitis, with acute abdomen findings on exam, serial labs, stool studies negative, cut back on fluids his pain is improving. Elevated liver function test-monitor daily stable Acute renal failure--Creatinine earlier 2022 was 1.0, so significant elevation from that. Still 11% above baseline Atrial fibrillation-hold off on blood thinners currently with possible GI bleeding from the colitis, Hemoccult is positive, hemoglobin down slightly today, more likely related to delusional. Consider starting anticoagulation tomorrow if hemoglobin remains stable NIDDM-insulin sliding scale, holding off on oral medications-significant hypoglycemia overnight persisting. Has been off of oral hypoglycemics. Will likely discontinue those at home and follow as an outpatient History of chronic combined congestive heart failure-treated as chronic congestive heart failure combined at this point, previous echo showed ejection fraction of 25%-BNP is significantly elevated today. 1 dose of diuretic and increase Entresto GERD-use IV Protonix Indications for admission: Patient with recent hospitalization given IV antibiotics. Pain was slightly improved and she felt good enough to go home since she was eating, that is failed over the weekend and now presenting with acute renal failure and significant dehydration with persistent active colitis. Will change IV antibiotics, trend to stool samples, consultation to general surgery-medically necessary treatment will span 2 to 3 days. If BNP improves, patient's pain continues to improve possible discharge tomorrow ?
[2023-12-04] MEDS: ISOSORBIDE MONONITRATE 60 MG TAB.ER.24H 90 MG PO (08:40)
[2023-12-04] MEDS: MAGNESIUM OXIDE 400 MG TABLET PO (08:41)
[2023-12-04] MEDS: SACUBITRIL/VALSARTAN 24 MG-26 MG TABLET 2 TAB PO ×2 (08:41→20:25)
[2023-12-04] MEDS: METOPROLOL TARTRATE 25 MG TABLET PO ×2 (08:41→20:25)
[2023-12-04] MEDS: FUROSEMIDE 40 MG/4 ML VIAL IVP (08:42)
[2023-12-04] MEDS: ACETAMINOPHEN 500 MG TABLET 1000 MG PO (08:50)
--- NOTE | 2023-12-04 10:37 | PT.DAILY ---
Physical Therapy Daily Note PT Daily Note/Assess Start: 12/03/23 13:35 Freq: Status: Active Protocol: Document 12/04/23 10:28 [id number] (Rec: 12/04/23 10:37 [id number]) Physical Therapy Daily Note/Assessment Time In/Time Out Time In 09:00 Time Out 09:10 Pain In Pain Level 0 Pain Out Pain Level 0 Subjective Subjective Patient received in bed, reluctant to agree to participating with PT. Informed patient she does have a choice to participate or not, but it would be to her benefit in her recovery. Patient agreeable to participate with PT. Therapeutic Exercise Time Therapeutic Exercise Minutes (minutes) 5 Therapeutic Exercise Units 1 Therapeutic Exercise Treatment Therapeutic Exercise Treatment Instructed in standing ther ex at counter to improve MY LE strength and gait. Patient able to perform heel raises, squats, MY hip ABD, extension , HS curls x 10 reps with MY UE support on counter for safety. Patient issued copy of HEP and states she understands how to perform them. Therapeutic Activity Time Therapeutic Activity Minutes (minutes) 5 Therapeutic Activity Units 1 Therapeutic Activity Treatment Bed Mobility Ability Modified Independent Therapeutic Activity Comments Supine to sit to standing is [place]. Patient ambulated ~140 feet while holding IV pole for SBA +1. No LOB observed during ambulation. Patient returned to bed is [place], CBWR. Total Physical Therapy Time Total Therapy Minutes 10 Total Physical Therapy Units 2 Summary Daily Note Summary Patient demonstrated safe and appropriate technique for HEP and ambulation. Increased ambulation distance demonstrated.
[2023-12-04 11:34] LABS: Glucometer 227 mg/dL (74-106)
[2023-12-04] MEDS: INSULIN ASPART 300 UNIT/3 ML PEN SUBQ ×3 (11:49→21:12)
[2023-12-04 16:08] LABS: Glucometer 175 mg/dL (74-106)
[2023-12-04] MEDS: ENSURE HP 237 ML LIQUID PO (20:25)
[2023-12-04] MEDS: PANTOPRAZOLE SODIUM 40 MG VIAL IV (20:25)
[2023-12-04] MEDS: TIZANIDINE HCL 4 MG TABLET PO (21:11)
[2023-12-04 21:12] LABS: Glucometer 170 mg/dL (74-106)
[2023-12-05] VITALS (7 sets, daily range): BP systolic 119; BP diastolic 72; PULSE 60–84; RESP 18; TEMP 36.4; O2SAT 94–95
[2023-12-05] MEDS: PIPERACILLIN SODIUM/TAZOBACTAM 3.375 GM in 0.9 % SODIUM CHLORIDE 50 ML IV (00:57)
[2023-12-05] MEDS: VANCOMYCIN HCL 7,500 MG/150 ML BOTTLE 250 MG PO (05:38)
[2023-12-05 05:46] LABS: Basophils Percent Auto 0.6 % (0.2-2.0); Eosinophils Absolute Auto 0.1 10^3/uL (0.0-0.7); Eosinophils Percent Auto 1.9 % (0.9-7.0); Hematocrit 35.7 % (36.0-48.0); Immature Granulocytes Abs Auto 0.01 10^3/uL (0.00-0.03); Immature Granulocytes Pct Auto 0.2 % (0.0-0.5); Lymphocytes Absolute Auto 2.1 10^3/uL (1.2-3.8); Mean Corpuscular HGB Conc 30.8 g/dL (29.9-35.2); Mean Corpuscular Hemoglobin 28.8 pg (26.7-34.0); Mean Corpuscular Volume 93.5 fL (81.0-99.0); Mean Platelet Volume 10.1 fL (9.5-13.5); Monocytes Absolute Auto 0.7 10^3/uL (0.3-0.8); Monocytes Percent Auto 11.5 % (1.7-12.0); Neutrophils Absolute Auto 3.3 10^3/uL (1.4-6.5); Neutrophils Percent Auto 52.8 % (43.0-75.0); Platelet Count 195 10^3/uL (150-450); Red Blood Count 3.82 10^6/uL (4.20-5.40); Red Cell Distribution Width 16.2 % (11.0-15.0); White Blood Count 6.3 10^3/uL (4.0-11.0)
[2023-12-05 06:09] LABS: C Reactive Protein <0.50 mg/dL (<=0.50); Magnesium 1.8 mg/dL (1.8-2.4)
[2023-12-05 06:19] LABS: Alanine Aminotransferase 20 U/L (14-59); Albumin Globulin Ratio 0.7; Albumin Level 2.1 g/dL (3.4-5.0); Alkaline Phosphatase 61 U/L (46-116); Anion Gap 9.8; Aspartate Amino Transferase 13 U/L (15-37); BUN Creatinine Ratio 11.7; Bilirubin Total 0.4 mg/dL (0.2-1.0); Calcium 8.7 mg/dL (8.5-10.1); Carbon Dioxide 27.3 mmol/L (21.0-32.0); Chloride 107 mmol/L (98-107); Erythrocyte Sedimentation Rate 45 mm/hr (<=30); Estimated GFR (African America 55 (>=60); Estimated GFR (Non-African Ame 46 (>=60); Globulin 3.1 g/dL; Glucose 186 mg/dL (74-106); Potassium 4.1 mmol/L (3.5-5.1); Sodium 140 mmol/L (136-145); Total Protein 5.2 g/dL (6.4-8.2)
[2023-12-05 07:29] LABS: Glucometer 161 mg/dL (74-106)
--- NOTE | 2023-12-05 08:10 | P.DS_ITS ---
DS: Providers Provider Date of admission: 12/02/23 14:44 Primary care physician: Alejandro Mccormack MD Consults: 12/02/23 14:31 Consult to Pharmacy Routine Consulting Provider: Reason for consultation: notify me when med rec updated please and thank you 12/02/23 14:34 Physical Therapy Eval and Treat Routine Reason for consultation: Eval and Treat Has provider been notified: No 12/02/23 14:47 Consult to General Surgeon Routine Consulting Provider: Vincent Gaytan Reason for consultation: colitis Has provider been notified: No DS: Diagnosis Discharge Diagnosis (1) GI bleed: (2) Colitis: (3) Acute lower GI bleeding: Plan Admission with Sinus tachycardia, hypotension, acute renal failure-secondary to dehydration(baseline creatinine is 1 for her, creatinine on admission 1.96 so is 196% above baseline) secondary to acute colitis, with acute abdomen findings on exam, Elevated liver function test Acute renal failure Atrial fibrillation NIDDM with severe hypoglycemia History of chronic combined congestive heart failure-treated as chronic congestive heart failure with recuced EF combined at this point, previous echo showed ejection fraction of 25% GERD Acute UTI secondary to E. coli Acute systolic heart failure Indications for admission: Patient with recent hospitalization given IV antibiotics. Pain was slightly improved and she felt good enough to go home since she was eating, that is failed over the weekend and now presenting with acute renal failure and significant dehydration with persistent active colitis. Will change IV antibiotics, trend to stool samples, consultation to general surgery-medically necessary treatment will span 2 to 3 days. If BNP improves, patient's pain continues to improve possible discharge tomorrow DS: Summary Hospital Course Hospital Course: Patient was readmitted after failed outpatient and inpatient treatment of acute colitis. Significant dehydration on admission with creatinine 196% above baseline. Her creatinine is improving. Still somewhat elevated on discharge. Her pain is much improved with change in antibiotics. She also has an acute UTI secondary to E. coli. Antibiotics for the colitis should cover that as well although sensitivities will be back later today. With the fluid resuscitation she did have a slight increase in her BNP consistent with acute systolic heart failure since she had no peripheral edema. Improved this morning. Patient will be discharged later today. Med see list - adjusted meds for DM. Time Spent with Patient Time attestation: Total time spent providing and/or coordinating discharge services: Exam Constitutional Vital Signs, click to edit/add: Last Vital Signs Temp 97.5 F L 12/05/23 04:00 Pulse 84 12/05/23 08:02 Resp 18 12/05/23 04:00 BP 119/72 12/05/23 04:00 Pulse Ox 95 12/05/23 04:37 O2 Del Method Room Air 12/05/23 04:37 Documenting provider has reviewed patient's vital signs: yes Common normals: apparent distress (mod painful distress) Chest Common normals: inspection of chest normal Respiratory Common normals: normal respiratory effort Cardio Common normals: regular rhythm; irregular rate Rate: tachycardic GI Common normals: Normal to inspection, nondistended, normoactive bowel sounds present and soft to palpation; tender (Rebound tenderness resolved, mild tenderness persisting) Extremity Common normals: normal to inspection, full ROM, no clubbing, cyanosis or edema a nd no pedal edema DS: Data Data Completed and Pending Labs on day of discharge: Labs from last 24 hours 12/05/23 12/05/23 12/04/23 07:28 05:37 21:10 WBC 6.3 RBC 3.82 L Hgb 11.0 L Hct 35.7 L MCV 93.5 MCH 28.8 MCHC 30.8 RDW 16.2 H Plt Count 195 MPV 10.1 Neut % (Auto) 52.8 Lymph % (Auto) 33.0 [place] % (Auto) 11.5 Eos % (Auto) 1.9 Baso % (Auto) 0.6 Neut # (Auto) 3.3 Lymph # (Auto) 2.1 [place] # (Auto) 0.7 Eos # (Auto) 0.1 Baso # (Auto) 0.0 Abs Immat Gran (auto) 0.01 Imm/Tot Granulo (auto) 0.2 ESR 45 H Sodium 140 Potassium 4.1 Chloride 107 Carbon Dioxide 27.3 Anion Gap 9.8 BUN 14.0 Creatinine 1.20 H Est GFR ( Amer) 55 L Est GFR (Non-Af Amer) 46 L BUN/Creatinine Ratio 11.7 Glucose 186 H Calcium 8.7 Magnesium 1.8 Total Bilirubin 0.4 AST 13 L ALT 20 Alkaline Phosphatase 61 C-Reactive Protein <0.50 NT-Pro-B Natriuret Pep 4188.0 H* Total Protein 5.2 L Albumin 2.1 L Globulin 3.1 Albumin/Globulin Ratio 0.7 POC Glucose 161 H 170 H 12/04/23 12/04/23 16:07 11:34 WBC RBC Hgb Hct MCV MCH MCHC RDW Plt Count MPV Neut % (Auto) Lymph % (Auto) [place] % (Auto) Eos % (Auto) Baso % (Auto) Neut # (Auto) Lymph # (Auto) [place] # (Auto) Eos # (Auto) Baso # (Auto) Abs Immat Gran (auto) Imm/Tot Granulo (auto) ESR Sodium Potassium Chloride Carbon Dioxide Anion Gap BUN Creatinine Est GFR ( Amer) Est GFR (Non-Af Amer) BUN/Creatinine Ratio Glucose Calcium Magnesium Total Bilirubin AST ALT Alkaline Phosphatase C-Reactive Protein NT-Pro-B Natriuret Pep Total Protein Albumin Globulin Albumin/Globulin Ratio POC Glucose 175 H 227 H Preliminary micro results at discharge 12/02/23 15:31 - Preliminary Blood NO GROWTH AT 36-48 HOURS. FINAL TO FOLLOW. 12/02/23 15:12 Blood Culture Result 1 - Preliminary Blood NO GROWTH AT 36-48 HOURS. FINAL TO FOLLOW. 12/02/23 14:27 Urine Culture - Preliminary Urine,Clean Catch Escherichia coli Discharge Plan Discharge Disposition: Home, Self-Care Condition: Good Discharge Medications: New doxycycline monohydrate 100 mg capsule 100 mg PO BID 7 Days Qty: 14 0RF Entresto 49-51 mg tablet 1 tab PO BID Qty: 60 11RF vancomycin 125 mg capsule 125 mg PO Q6H 7 Days Qty: 28 0RF Continued furosemide 20 mg tablet 20 mg PO QAM Eliquis 5 mg tablet 5 mg PO BID Jardiance 10 mg tablet 10 mg PO DAILY atorvastatin 40 mg tablet 40 mg PO .QHS metoprolol tartrate 25 mg Tablet 25 mg PO BID Qty: 60 11RF ezetimibe 10 mg tablet 10 mg PO DAILY pantoprazole 40 mg tablet,delayed release (DR/EC) 40 mg PO DAILY isosorbide mononitrate 60 mg tablet extended release 24 hr 90 mg PO .QD Rx Instructions: CURRENT MED PER DR GRIMES'S OFFICE 12/02/23 Discontinued spironolactone 25 mg tablet 25 mg PO QAM aspirin 81 mg tablet,delayed release (DR/EC) 81 mg PO .QD Entresto 24-26 mg tablet 1 tab PO BID ciprofloxacin HCl [Cipro] 500 mg tablet 500 mg PO BID Qty: 20 0RF Patient Comments: 11/29/23 X 10 DAYS metronidazole 500 mg tablet 500 mg PO TID Qty: 30 0RF Patient Comments: 11/29/23 X 10 DAYS metformin 500 mg tablet 500 mg PO BID Ozempic 0.25 mg or 0.5 mg (2 mg/3 mL) pen injector 0.25 mg SUBCUT .weekly lisinopril 40 mg tablet 40 mg PO .QD Patient Comments: CURRENT MED PER DR GRIMES'S OFFICE 12/02/23 Print Language: Belarusian Forms: Portal Instructions
[2023-12-05] MEDS: ACETAMINOPHEN 500 MG TABLET 1000 MG PO (08:43)
[2023-12-05] MEDS: CANAGLIFLOZIN 100 MG TABLET PO (08:43)
[2023-12-05] MEDS: INSULIN ASPART 300 UNIT/3 ML PEN SUBQ (08:44)
[2023-12-05] MEDS: MAGNESIUM OXIDE 400 MG TABLET PO (08:51)
[2023-12-05] MEDS: METOPROLOL TARTRATE 25 MG TABLET PO (08:51)
[2023-12-05] MEDS: SACUBITRIL/VALSARTAN 24 MG-26 MG TABLET 2 TAB PO (08:51)
[2023-12-05] MEDS: ISOSORBIDE MONONITRATE 60 MG TAB.ER.24H 90 MG PO (08:52)
[2023-12-05] MEDS: ENSURE HP 237 ML LIQUID PO (08:52)
--- NOTE | 2023-12-06 13:41 | CM.DCFOLLOWU ---
Person spoke with: Melissa How are you feeling? Much better How is your pain? No pain Did you understand your discharge instructions? Yes Do you have any questions about your discharge instructions? No Were you given any prescriptions at discharge? Yes Were you able to get your prescriptions filled? Yes Do you understand how to take your medications as ordered? Yes Do you have any questions about your follow up appointment and do you plan to keep your follow up appointment? I have appt with coffee blender and Dr. Mccormack and plan on keeping both appointments. Is there anything else that you would like to discuss? No Questions/Comments/Concerns/Other:
== END 2023-12-05 08:58 | disposition home or self-care (01) | DRG 391 ==
LOC: ER 13:52 → MS 14:53
PROVIDERS: Admitting Provider Family Medicine; Emergency Provider Emergency Medicine; PCP Family Medicine; Visit Provider Family Medicine
DX: K52.9 Noninfective gastroenteritis and colitis, unspecified (principal); I11.0 Hypertensive heart disease with heart failure; I50.43 Acute on chronic combined systolic (congestive) and diastolic (congestive) heart failure; N17.9 Acute kidney failure, unspecified; N39.0 Urinary tract infection, site not specified; Z16.11 Resistance to penicillins; Z16.23 Resistance to quinolones and fluoroquinolones; B96.20 Unspecified Escherichia coli [E. coli] as the cause of diseases classified elsewhere; E86.0 Dehydration; R00.0 Tachycardia, unspecified; I95.9 Hypotension, unspecified; R94.5 Abnormal results of liver function studies; I48.91 Unspecified atrial fibrillation; E11.649 Type 2 diabetes mellitus with hypoglycemia without coma; K21.9 Gastro-esophageal reflux disease without esophagitis; Z79.84 Long term (current) use of oral hypoglycemic drugs; Z79.85 Long-term (current) use of injectable non-insulin antidiabetic drugs; Z79.82 Long term (current) use of aspirin; Z79.01 Long term (current) use of anticoagulants; Z79.899 Other long term (current) drug therapy; Z87.891 Personal history of nicotine dependence; Z95.1 Presence of aortocoronary bypass graft; Z98.890 Other specified postprocedural states
CPT/HCPCS: 36415; 74176; 80048; 80053; 80076; 81001; 82150; 82948; 83605; 83690; 83735; 83880; 84484; 85025; 85652; 86140; 87040; 87086; 87150; 87186; 87493; 87507; 93005; 94667; 94668; 94761; 96361; 96365; 96366; 96375; 96376; 97110; 97161; 97530; 99285; G0328

== ENCOUNTER 2023-12-24 11:57 | Outpatient (OUT) | payer MEDICARE, SELFPAY ==
--- NOTE | 2023-12-24 12:11 | US_ITS ---
The [address] [address] Patient Name: KAYLA HEATH MRN: [id number] date: 1960 Sex: F Assigned Patient Location: [place] Current Patient Location: [place] Accession/Order Number: [id number] Exam Date: 12/24/2023 12:15 Report Date: 12/24/2023 14:55 At the request of: MADISON MAGANA Procedure: US renal bladder EXAMINATION: US renal bladder HISTORY: urinary tract infection N39.0 COMPARISON: No relevant comparison available. TECHNIQUE: Ultrasound examination was performed of the bladder. FINDINGS: Right Kidney: Normal in size, contour and echotexture. No solid cortical mass, hydronephrosis or obstructing nephrolithiasis. The cortex measures 1.0 cm. 3 mm echogenic foci in the midpole likely nonobstructing nephrolith Height: 3.9 cm Length: 10.6 cm Width: 4.8 cm Left Kidney: Normal in size, contour and echotexture. No solid cortical mass, hydronephrosis or obstructing nephrolithiasis. Multiple echogenic foci the largest measuring 6 cm possibly nonobstructing nephrolithiasis. The cortex measures 0.8 cm Height: 5.9 cm Length: 10.2 cm Width: 4.5 cm Urinary bladder minimally distended measuring 12 cc Ureteral jets were not visualized US/US renal bladder IMPRESSION: Bilateral nonobstructing nephrolithiasis Electronically authenticated by: LISSETTE MICHAEL Date: 12/24/2023 14:55
[2023-12-24 13:23] LABS: Bilirubin Urine NEGATIVE (NEGATIVE); Blood Urine NEGATIVE (NEGATIVE); Clarity Urine CLEAR (CLEAR); Color Urine YELLOW (YELLOW); Glucose Urine UA 500 mg/dL (NEGATIVE); Ketones Urine NEGATIVE (NEGATIVE); Leukocyte Esterase Urine NEGATIVE (NEGATIVE); Nitrite Urine NEGATIVE (NEGATIVE); Protein Urine TRACE mg/dL (NEG/TRACE); Specific Gravity Urine >=1.030 (1.005-1.025); Urobilinogen Urine 0.2 EU/dL (0.2-1.0); pH Urine 5.5 (5.0-9.0)
[2023-12-24 13:43] LABS: Amorphous Sediment Urine FEW; Bacteria Urine NONE SEEN #/HPF (NONE SEEN); Cast Seen? SEEN #/LPF (NONE SEEN); Crystals Seen? Seen #/HPF (None Seen); Fine Granular Casts Urine FEW; Mucus Urine NONE SEEN (NONE SEEN); Squamous Epithelial Cell Urine FEW #/LPF (NONE/RARE)
== END 2023-12-24 11:58 | disposition home or self-care (01) ==
LOC: US 11:57
PROVIDERS: PCP Family Medicine; Visit Provider Family Medicine
DX: N39.0 Urinary tract infection, site not specified (principal); N20.0 Calculus of kidney
CPT/HCPCS: 76770; 81001; 87086; 87150; 87186

== ENCOUNTER 2023-12-24 12:14 | Outpatient (OUT) | payer MEDICARE, SELFPAY ==
[2023-12-24 13:23] LABS: BUN Creatinine Ratio 14.6; Calcium 9.9 mg/dL (8.5-10.1); Carbon Dioxide 22.5 mmol/L (21.0-32.0); Chloride 103 mmol/L (98-107); Estimated GFR (African America 50 (>=60); Estimated GFR (Non-African Ame 42 (>=60); Glucose 159 mg/dL (74-106); Potassium 4.5 mmol/L (3.5-5.1); Sodium 136 mmol/L (136-145)
== END 2023-12-24 12:15 | disposition home or self-care (01) ==
LOC: LAB 12:15
PROVIDERS: PCP Family Medicine; Visit Provider Nurse Practitioner Family
DX: N39.0 Urinary tract infection, site not specified (principal); I50.22 Chronic systolic (congestive) heart failure
CPT/HCPCS: 36415; 80048; 81001; 87086; 87150; 87186

== ENCOUNTER 2024-01-10 13:16 | Outpatient (OUT) | payer MEDICARE, SELFPAY ==
[2024-01-10 13:48] LABS: Basophils Percent Auto 0.3 % (0.2-2.0); Eosinophils Absolute Auto 0.1 10^3/uL (0.0-0.7); Eosinophils Percent Auto 1.2 % (0.9-7.0); Hematocrit 39.5 % (36.0-48.0); Hemoglobin 12.1 g/dL (12.0-16.0); Immature Granulocytes Abs Auto 0.01 10^3/uL (0.00-0.03); Immature Granulocytes Pct Auto 0.1 % (0.0-0.5); Lymphocytes Absolute Auto 2.1 10^3/uL (1.2-3.8); Lymphocytes Percent Auto 27.8 % (20.5-60.0); Mean Corpuscular HGB Conc 30.6 g/dL (29.9-35.2); Mean Corpuscular Hemoglobin 28.5 pg (26.7-34.0); Mean Corpuscular Volume 92.9 fL (81.0-99.0); Mean Platelet Volume 9.7 fL (9.5-13.5); Monocytes Absolute Auto 0.6 10^3/uL (0.3-0.8); Monocytes Percent Auto 7.6 % (1.7-12.0); Neutrophils Absolute Auto 4.8 10^3/uL (1.4-6.5); Platelet Count 250 10^3/uL (150-450); Red Blood Count 4.25 10^6/uL (4.20-5.40); White Blood Count 7.6 10^3/uL (4.0-11.0)
[2024-01-10 13:51] LABS: Anion Gap 8.6; BUN Creatinine Ratio 12.5; Calcium 9.5 mg/dL (8.5-10.1); Chloride 107 mmol/L (98-107); Estimated GFR (African America >60 (>=60); Estimated GFR (Non-African Ame 54 (>=60); Glucose 198 mg/dL (74-106); Potassium 3.6 mmol/L (3.5-5.1); Sodium 140 mmol/L (136-145)
== END 2024-01-10 13:17 | disposition home or self-care (01) ==
LOC: LAB 13:16
PROVIDERS: PCP Family Medicine; Visit Provider Internal Medicine Interventional Cardiology
DX: I50.22 Chronic systolic (congestive) heart failure (principal); I48.19 Other persistent atrial fibrillation
CPT/HCPCS: 36415; 80048; 85025

== ENCOUNTER 2024-03-30 13:32 | Outpatient (OUT) | payer MEDICARE, SELFPAY ==
--- OUTSIDE RECORDS SUMMARY | 2024-03-30 13:44 | XMS_ITS | CCD ---
Author Organization [facility] Care Team Providers Care Utility Pipe Layer Name Role Phone PHYSICIAN, DEFAULT Unavailable Unavailable PHYSICIAN, DEFAULT Unavailable Unavailable MADISON MCCORMACK Unavailable Unavailable UNKNOWN, PROVIDER Unavailable Unavailable UNKNOWN, PROVIDER Unavailable Unavailable MADISON MCCORMACK Unavailable Unavailable MADISON MCCORMACK Unavailable Unavailable PEPE ., MYKE Admitting Unavailable MYKE FERMIN Attending Unavailable DR SUNIL THOMPSON Consulting Unavailable HOY ., DR WALLACE Primary Care Unavailable JARETH .MOON Consulting Unavailabl e CHINO ., DR WALLACE Attending Unavailable HOY ., DR WALLACE Admitting Unavailable HOY ., DR WALLACE Primary Care Unavailable HOY ., DR WALLACE Consulting Unavailable HOY ., DR WALLACE Consulting Unavailable HOY ., DR WALLACE Attending Unavailable HOY ., DR WALLACE Admitting Unavailable CHINO ., DR WALLACE Primary Care Unavailable MD Madison Mccormack Primary Care Provider [phone] DO Isaac Greenwood Admit Provider MD Johnny Bernal Attending Provider Jaimie Lopez Consulting Unavailable Madison Mccormack Primary Care Unavailable Johnny Bernal Attending Unavailable Isaac Greenwood Admitting Unavailable Zach Jones Consulting Unavailable Justine Jacobo Consulting Jayne López Consulting Unavailable JUSTINE GRIMES Admitting Unavailable JUSTINE GRIMES Attending Unavailable JUSTINE GRIMES Referring Unavailable LUCIANO AGUAYO Attending Unavailable ANGELLA WHITE Attending Unavailable TREVIN LEAL Attending Unavailable JUSTINE GRIMES Attending Unavailable JUSTINE GRIMES Referring Unavailable JUSTINE GRIMES Referring Unavailable Allergies Allergy Classification Reported Allergen(s) Allergy Type Date of Onset Reaction(s) Facility Acetaminophen / oxyCODONE (1 source) Acetaminophen / oxyCODONE; Translations: [OXYCODONE-ACETAM INOPHEN] Drug Allergy 6 [facility] (1 source) acetaminophen / oxyCODONE Drug Allergy 6 [facility] (1 source) No Known Allergies; Translations: [No Known Allergies] Propensity to adverse reactions (disorder) 7 [facility] Medications Current Medications Medication Drug Class(es) Dates Sig (Normalized) Sig (Original) apixaban 5 mg oral tablet (1 source) Factor Xa Inhibitor Start: 11-25-2023 take 1 tablet by mouth twice daily Apixaban (Eliquis) 5 mg Tablet Active 5 MG PO Twice daily 180 November 25, 2023 12:00am aspirin 81 mg delayed release oral tablet (1 source) Platelet Aggregation Inhibitor, Nonsteroidal Anti-inflammatory Drug Start: 11-25-2023 take 81 mg by mouth once daily Aspirin Active 81 MG PO Daily November 25, 2023 12:00am atorvastatin 40 mg oral tablet (2 sources) HMG-CoA Reductase Inhibitor Start: 11-25-2023 take 1 tablet by mouth once daily at bedtime Atorvastatin (Lipitor) 40 mg tablet Active 40 MG PO Daily at bedtime November 25, 2023 12:00am Start: 11-21-2023 End: 11-25-2023 take 20 mg by mouth once daily Atorvastatin Discontinu ed 20 MG PO Daily November 21, 2023 12:00am November 25, 2023 12:43pm empagliflozin 10 mg oral tablet (1 source) Sodium-Glucose Cotransporter 2 Inhibitor Start: 11-25-2023 take 1 tablet by mouth once daily Empagliflozin (Jardiance) 10 mg Tablet Active 10 MG PO Daily November 25, 2023 12:00am furosemide 20 mg oral tablet (1 source) Loop Diuretic Start: 11-25-2023 take 1 tablet by mouth once daily Furosemide (Lasix) 20 mg tablet Active 20 MG PO Daily November 25, 2023 12:00am 24 hr metoprolol succinate 50 mg extended release oral tablet (1 source) beta-Adrenergic Indra Start: 11-25-2023 take 50 mg by mouth once daily Metoprolol Succinate Active 50 MG PO Daily 90 November 25, 2023 12:00am pantoprazole 40 mg delayed release oral tablet (1 source) Proton Pump Inhibitor Start: 11-21-2023 take 40 mg by mouth once daily Pantoprazole Active 40 MG PO Daily November 21, 2023 12:00am potassium chloride 10 meq extended release oral capsule (1 source) Start: 11-25-2023 take 10 mEq by mouth once daily Potassium Chloride Active 10 MEQ PO Daily November 25, 2023 12:00am sacubitril 24 mg / valsartan 26 mg oral tablet (1 source) Angiotensin 2 Receptor Indra Start: 11-25-2023 take 1 tablet by mouth twice daily Sacubitril-Valsarta n (Entresto) 24-26 mg Tablet Active 1 TAB PO Twice daily 180 November 25, 2023 12:00am Semaglutide (1 source) Start: 11-21-2023 Semaglutide (Ozempic) 0.25 mg or 0.5 mg (2 mg/3 mL) pen injector Active 0.5 MG SUBCUT .weekly November 21, 2023 12:00am spironolactone 25 mg oral tablet (1 source) Aldosterone Antagonist Start: 11-25-2023 take 25 mg by mouth once daily Spironolactone Active 25 MG PO Daily November 25, 2023 12:00am Completed/Discontinued Medications Medication Drug Class(es) Dates Sig (Normalized) Sig (Original) amoxicillin 875 mg / clavulanate 125 mg oral tablet (1 source) Penicillin-class Antibacterial Start: 11-21-2023 End: 11-25-2023 take 1 tablet by mouth every twelve hours Amoxicillin-Pot Clavulanate Discontinued 1 TAB PO Every 12 hours November 21, 2023 12:00am November 25, 2023 12:43pm ezetimibe 10 mg oral tablet (1 source) Dietary Cholesterol Absorption Inhibitor Start: 11-21-2023 End: 11-25-2023 take 10 mg by mouth once daily Ezetimibe Discontinued 10 MG PO Daily November 21, 2023 12:00am November 25, 2023 12:43pm lisinopril 40 mg oral tablet (1 source) Angiotensin Converting Enzyme Inhibitor Start: 11-21-2023 End: 11-25-2023 take 40 mg by mouth once daily Lisinopril Discontinued 40 MG PO Daily November 21, 2023 12:00am November 25, 2023 12:43pm metFORMIN hydrochloride 500 mg oral tablet (1 source) Biguanide Start: 11-21-2023 End: 11-25-2023 take 500 mg by mouth twice daily Metformin Discontinued 500 MG PO Twice daily November 21, 2023 12:00am November 25, 2023 12:46pm Problems Active Problems Problem Classification Problem Date Documented Date Episodic/Chronic Acute myocardial infarction (3 sources) Myocardial infarction; Translations: [Non-ST elevation (NSTEMI) myocardial infarction] Onset: 11-21-2023 11-21-2023 Chronic Anxiety disorders (1 source) Anxiety disorder, unspecified; Translations: [ANXIETY DISORDER UNSPECIFIED] Onset: 04-11-2022 Chronic Cardiac dysrhythmias (5 sources) Atrial fibrillation; Translations: [Unspecified atrial fibrillation] Onset: 11-21-2023 11-21-2023 Chronic Congestive heart failure; nonhypertensive (7 sources) Heart failure with reduced ejection fraction; Translations: [Unspecified systolic (congestive) heart failure] Onset: 11-21-2023 11-21-2023 Chronic Coronary atherosclerosis and other heart disease (9 sources) Atherosclerotic heart disease of [place] coronary artery without angina pectoris; Translations: [Coronary arteriosclerosis] Onset: 05-10-2017 11-21-2023 Chronic Crushing injury or internal injury (2 sources) Injury of heart; Translations: [Myocardial injury] 11-21-2023 Episodic Diabetes mellitus without complication (5 sources) Type 2 diabetes mellitus without complications; Translations: [Diabetes mellitus] Onset: 05-10-2017 11-21-2023 Chronic Disorders of lipid metabolism (1 source) Hyperlipidemia, unspecified; Translations: [HYPERLIPIDEMIA, UNSPECIFIED] Onset: 05-10-2017 Chronic Essential hypertension (7 sources) Essential (primary) hypertension; Translations: [Hypertensive disorder] Onset: 05-10-2017 11-21-2023 Chronic Headache; including migraine (2 sources) Headache; Translations: [Headache] 11-21-2023 Episodic Headache; including migraine (1 source) Headache; including migraine; Translations: [Headache, unspecified] Onset: 11-21-2023 Heart valve disorders (2 sources) Nonrheumatic mitral (valve) insufficiency; Translations: [Nonrheumatic mitral (valve) insufficiency] Onset: 12-27-2023 Chronic Influenza (3 sources) Influenza due to Influenza A virus; Translations: [Influenza due to other identified influenza virus with other respiratory manifestations] Onset: 11-21-2023 11-21-2023 Episodic Nonspecific chest pain (7 sources) Chest pain, unspecified; Translations: [Chest pain] Onset: 05-10-2017 11-21-2023 Episodic Osteoarthritis (1 source) Unspecified osteoarthritis, unspecified site; Translations: [UNSPECIFIED OSTEOARTHRITIS UNS SITE] Onset: 04-11-2022 Chronic Other lower respiratory disease (1 source) Dyspnea; Translations: [Shortness of breath] 11-21-2023 Episodic Other lower respiratory disease (2 sources) Shortness of breath; Translations: [Shortness of breath] Onset: 11-21-2023 11-25-2023 Episodic Other nutritional; endocrine; and metabolic disorders (1 source) Morbid (severe) obesity due to excess calories; Translations: [MORBID SEVERE OBES D/T EXCESS JOSÉ LUIS] Onset: 04-11-2022 Chronic Other nutritional; endocrine; and metabolic disorders (1 source) Body mass index (BMI) 40.0-44.9, adult; Translations: [BODY MASS INDEX BMI 40.0-44.9 ADULT] Onset: 04-11-2022 Chronic Respiratory failure; insufficiency; arrest (adult) (3 sources) Acute respiratory failure; Translations: [Acute respiratory failure with hypoxia] Onset: 11-21-2023 11-21-2023 Episodic Substance-related disorders (1 source) Nicotine dependence, cigarettes, uncomplicated; Translations: [NICOTINE DEPEND CIGARETTES UNCOMP] Onset: 04-11-2022 Chronic Unclassified (1 source) halfway (current) use of oral hypoglycemic drugs; Translations: [FPC (CURRENT) USE OF ORAL HYPOGLYCEMIC DRUGS] Onset: 05-10-2017 Unclassified (2 sources) Unknown / UNK(Unknown) Onset: 05-10-2017 Unclassified (2 sources) CONTACT W/AND (SUSP) EXPOS COVID-19; Translations: [CONTACT W/AND (SUSP) EXPOS COVID-19] Onset: 08-18-2022 Unclassified (1 source) COUGH, UNSPECIFIED; Translations: [COUGH, UNSPECIFIED] Onset: 08-18-2022 Unclassified (1 source) Non-ischemic myocardial injury (non-traumatic); Translations: [Non-ischemic myocardial injury (non-traumatic)] Onset: 11-21-2023 Unclassified (2 sources) Other persistent atrial fibrillation; Translations: [Other persistent atrial fibrillation] Onset: 01-01-2024 Viral infection (1 source) COVID-19; Translations: [COVID-19] Onset: 08-18-2022 Past or Other Problems Problem Classification Problem Date Documented Da te Episodic/Chronic Calculus of urinary tract (1 source) Personal history of urinary calculi; Translations: [PERSONAL HISTORY OF URINARY CALCULI] Onset: 04-11-2022 Episodic Coronary atherosclerosis and other heart disease (6 sources) Presence of aortocoronary bypass graft; Translations: [Aortocoronary bypass status] Onset: 05-10-2017 11-25-2023 Episodic E Codes: Fall (1 source) Unspecified fall, initial encounter; Translations: [UNSPECIFIED FALL INITIAL ENCOUNTER] Onset: 04-11-2022 Episodic Other aftercare (3 sources) halfway (current) use of aspirin; 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/anti platelets] Onset: 05-10-2017 Episodic Other aftercare (1 source) 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; Translations: [OTH CLERK ANALYST CURRENT DRUG THERAPY] Onset: 04-11-2022 Episodic Other connective tissue disease (1 source) Arthrodesis status; Translations: [ARTHRODESIS STATUS] Onset: 04-11-2022 Episodic Other injuries and conditions due to external causes (1 source) Other specified injuries of head, initial encounter; Translations: [OTH SPEC INJURIES HEAD INITIAL ENC] Onset: 04-11-2022 Episodic Other upper respiratory disease (1 source) Nasal congestion; Translations: [NASAL CONGESTION] Onset: 08-18-2022 Episodic Residual codes; unclassified (1 source) Acquired absence of both cervix and uterus; Translations: [ACQUIRED ABSENCE BOTH CERVIX AND UTERUS] Onset: 04-11-2022 Episodic Screening or history of mental health and substance abuse (1 source) Personal history of nicotine dependence; Translations: [PERSONAL HISTORY OF NICOTINE DEPENDENCE] Onset: 05-10-2017 Episodic Superficial injury; contusion (1 source) Contusion of other part of head, initial encounter; Translations: [CONTUS OTH PRT HEAD INITIAL ENCNTR] Onset: 04-11-2022 Episodic Syncope (5 sources) Syncope and collapse; Translations: [SYNCOPE AND COLLAPSE] Onset: 05-10-2017 Episodic Unclassified (1 source) CONTACT W/AND (SUSP) EXPOS COVID-19; Translations: [CONTACT W/AND (SUSP) EXPOS COVID-19] Onset: 08-13-2022 Results Test Name Value Interpretation Reference Range Facility Office Visiton 02-19-2024 Follow-up visit [id number] Chung Dubose 1960 F Date Provider Department Center 02/19/2024 [id number] WHITE Family History Problem Relation Age of Onset Diabetes Mother Atrial fibrillation Mother Hyperlipidemia Mother Kidney disease Sister Heart attack Maternal Grandmother Stroke Maternal Grandmother Family Status - Relation Status Age at Mother Sister Maternal Grandmother Level of Service:52787 [place] OFFICE/OUTPATIENT ESTABLISHED MOD MDM 30 MIN Normal [facility] ANESon 01-17-2024 ANES -------- Attestation signed by Ria Schneider MD at 01/22/2024 12:42 PM By using the attestations below, the signing clinician agrees that I have read and verify that the documentation has been personally reviewed by me and ensure that the documentation accurately reflects the encounter. GC: I personally saw this patient on the day of the encounter, performed the back portion(s) of the service and participated in the management and confirm the resident's documentation. Please note there may be an additional personal documentation from me. Patient: Melissa Dubose Procedure Information Date/Time: 01/17/24904 Procedure: Cardioversion/defibrillation Location: [facility] COORDINATOR HOLDING ROOM / [facility] (Cath) Providers: Justine Grimes MD Clinical information reviewed: Allergies Meds OB Status Physical Exam Airway Mallampati: III TM distance: >3 FB Neck ROM: full Cardiovascular Rhythm: regular Rate: normal Dental Pulmonary Abdominal Anesthesia Plan ASA 3 Anesthetic plan and risks discussed with patient. Use of blood products discussed with patient who. Plan discussed with attending. Additional Equipment Requests Normal [facility] HPon 01-17-2024 -------- Attestation signed by Ria Schneider MD at 01/22/2024 12:42 PM By using the attestations below, the signing clinician agrees that I have read and verify that the documentation has been personally reviewed by me and ensure that the documentation accurately reflects the encounter. GC: I personally saw this patient on the day of the encounter, performed the back portion(s) of the service and participated in the management and confirm the resident's documentation. Please note there may be an additional personal documentation from me. H&P reviewed. The patient was examined and there are no changes to the H&P. The procedure was explained to the patient. The risks and benefits of the procedure were explained to the patient who showed understanding and with full capacity elected to proceed with the procedure. All questions were addressed and answered. Jocelin Barajas MD Technology Professional - PGY5 [facility] NURSNOTEon 01-17-2024 NURSJULITO RN educated pt on d/ c instructions. RN encouraged pt to voice any questions or concerns. Pt verbalizes no questions or concerns at this time. [facility] NURSNOTE Patient passed swall ow test. No issues. [facility] HPon 12-27-2023 [facility] - [facility] Subjective Melissa Dubose is a 63 y.o. year old female patient being seen for Follow-up (Follow up per Al ) Patient Active Problem List Diagnosis Coronary arteriosclerosis Edema of lower extremity Hypertensive disorder Family History Problem Relation Name Age of Onset Diabetes Mother Atrial fibrillation Mother Hyperlipidemia Mother Kidney disease Sister Heart attack Maternal Grandmother Stroke Maternal Grandmother Social History Tobacco Use Smoking status: Former Types: Cigarettes Smokeless tobacco: Never Substance Use Topics Alcohol use: Not Currently Drug use: Never PACO Melissa is seen in follow up. She is a 63 yo woman with CAD s/p bypass surgery and NSTEMI in 2016. She has hypertension on treatment. In the past she was discovered to have episodes of atrial tachycardia by event monitor. Recently she was admitted to an outside hospital with worsening shortness of breath and influenza A. She was found to have acute heart failure with an ejection fraction around 25% and elevated cardiac enzymes as well as new onset atrial fibrillation with rapid ventricular response. She underwent cardiac catheterization at [facility] which showed patent bypass grafts. She was started on GDMT for heart failure as well as anticoagulation therapy with Eliquis. She then developed lower GI bleeding and possible colitis. She also developed UTI. Anticoagulation therapy was interrupted but then resumed. She was most recently evaluated in our office on 12/11/2023 and initial adjustment of guideline directed medical therapy was initiated. Today she reports that she has shortness of breath on exertion NYHA class II-III symptoms with irregular heartbeats and palpitations. She denies chest pains. She has mild occasional lower extremity edema. Review of Systems Cardiovascular: Positive for dyspnea on exertion, irregular heartbeat, leg swelling and palpitations. Objective Visit Vitals BP 104/62 (BP Location: Left arm, Patient Position: Sitting, BP Cuff Size: Adult) Pulse 68 Resp 12 Ht 1.778 m (5' 10 ) Wt 122 kg (270 lb) SpO2 97% BMI 38.74 kg/m??? Smoking Status Former BSA 2.45 m??? Physical Exam Constitutional: Appearance: She is well-developed. She is obese. She is not ill-appearing. HENT: Head: Normocephalic and atraumatic. Nose: Nose normal. Eyes: General: No scleral icterus. Pupils: Pupils are equal, round, and reactive to light. Neck: Thyroid: No thyromegaly. Vascular: No JVD. Cardiovascular: Rate and Rhythm: Normal rate. Rhythm irregularly irregular. Pulses: Radial pulses are 0 on the right side and 0 on the left side. Heart sounds: Normal heart sounds. No murmur heard. No friction rub. No gallop. Comments: Good ulnar pulse Pulmonary: Effort: Pulmonary effort is normal. No respiratory distress. Breath sounds: Normal breath sounds. No wheezing or rales. Chest: Chest wall: No tenderness. Abdominal: General: Bowel sounds are normal. There is no distension. Palpations: Abdomen is soft. Tenderness: There is no abdominal tenderness. Musculoskeletal: General: No swelling. Cervical back: Neck supple. Right lower le+ Pitting Edema present. Left lower le+ Pitting Edema present. Skin: General: Skin is warm and dry. Neurological: General: No focal deficit present. Mental Status: She is alert and oriented to person, place, and time. Psychiatric: Mood and Affect: Mood normal. Behavior: Behavior is cooperative. Judgment: Judgment normal. Allergies Allergies Allergen Reactions Oxycodone-Acetaminophen Medications Current Outpatient Medications: cefdinir (Omnicef) 300 mg capsule, Take 2 capsules by mouth 1 (one) time each day at the same time., Disp: , Rfl: Eliquis 5 mg tablet, Take 5 mg by mouth in the morning and at bedtime., Disp: , Rfl: ezetimibe (Zetia) 10 mg tablet, Take 1 tablet (10 mg) by mouth in the morning., Disp: 90 tablet, Rfl: 3 Jardiance 10 mg, Take 10 mg by mouth in the morning., Disp: , Rfl: pantoprazole (ProtoNix) 40 mg EC tablet, take 1 tablet by mouth once daily, Disp: 90 tablet, Rfl: 0 tiZANidine (Zanaflex) 4 mg tablet, 2 tablets Orally at bedtime for 30 days, Disp: , Rfl: vancomycin (Vancocin) 125 mg capsule, take 1 capsule by mouth every 6 hours for 7 days, Disp: , Rfl: metoprolol succinate XL (Toprol-XL) 50 mg 24 hr tablet, Take 1 tablet (50 mg) by mouth in the morning. Do not crush or chew., Disp: 90 tablet, Rfl: 3 sacubitril-valsartan (Entresto) 97-103 mg tablet, Take 1 tablet by mouth in the morning and at bedtime., Disp: 180 tablet, Rfl: 3 Recent Labs Blood testing 01/24/2020: Hb 14.4, Platelet 189, K 4.0, Cr 1.01, BUN 14. Blood testing 12/24/2023: Potassium 4.5, BUN 19, creatinine 1.3. eGFR 42. Imaging and other tests ECG 12/11/2023: Atrial fibrillation with rapid ventricular response, rightward axis, nonspecific T wave abn (more content not included)... Normal [facility] Office Visiton 12-27-2023 Follow-up visit [id number] Chung Dubose 1960 Date Provider Department Center 12/27/2023 JUSTINE NOLAN DEMETRIS Parra Family History Problem Relation Age of Onset Diabetes Mother Atrial fibrillation Mother Hyperlipidemia Mother Kidney disease Sister Heart attack Maternal Grandmother Stroke Maternal Grandmother Family Status - Relation Status Age at Mother Sister Maternal Grandmother Level of Service:94089 [place] OFFICE/OUTPATIENT ESTABLISHED HIGH MDM 40 MIN Reason for Visit and Comments: Follow-up [709999] - Follow up per Al [facility] Office Visiton 12-11-2023 Follow-up visit [id number] Chung Dubose 1960 Date Provider Department Center 12/11/2023 TREVIN COTTO Family History Problem Relation Age of Onset Diabetes Mother Atrial fibrillation Mother Hyperlipidemia Mother Kidney disease Sister Heart attack Maternal Grandmother Stroke Maternal Grandmother Family Status - Relation Status Age at Mother Sister Maternal Grandmother Level of Service:90301 [place] OFFICE/OUTPATIENT ESTABLISHED HIGH MDM 40 MIN Reason for Visit and Comments: Hospital Follow-up [832] Congestive Heart Failure [127] Coronary Artery Disease [187] Atrial Fibrillation [80] Normal [facility] Glucose Poct Glucometerson 0 11-25-2023 Glucose [Mass/Vol] 255 mg/dL Normal [facility] Comment on above: Result Comment: [facility] Glucose Reference Range is dependent on time and content of last meal. Glucose of more than 200 mg/dL in a nonstressed, ambulatory subject supports the diagnosis of Diabetes Mellitus. PERFORMED BY: [place] [address] PATHOLOGIST CUSTOMER ACQUISITION MANAGER SUNNI CH M.D. Performed By: #### P T, PTT #### [facility] [address] Basic Metabolic Panelon - Anion gap [Moles/Vol] 10.9 mmol/L Normal 6.0-15.0 [facility] Comment on above: Performed By: #### P T, PTT #### [address] Calcium [Mass/Vol] 9.0 mg/dL Normal 8.6-10.3 [facility] Comment on above: Performed By: #### P T, PTT #### [facility] [address] [place] [address] [place] Chloride [Moles/Vol] 100 mmol/L Normal 98-107 [facility] Comment on above: Performed By: #### P T, PTT #### [facility] [address] [place] [address] [place] CO2 [Moles/Vol] 30.8 mmol/L Normal 21.0-31.0 [facility] Comment on above: Performed By: #### P T, PTT #### [facility] [address] [place] [address] [place] Creatinine [Mass/Vol] 0.91 mg/dL Normal 0.60-1.20 [facility] Comment on above: Performed By: #### P T, PTT #### [facility] [address] [place] [address] [place] Creatinine Clr Calc Pharmacy 85.70 Normal [facility] Comment on above: Result Comment: PERF ORMED BY: [place] [address] PATHOLOGIST CUSTOMER ACQUISITION MANAGER SUNNI CH M.D. Performed By: #### P T, PTT #### [place] [address] [place] GFR/1.73 sq M.predicted MDRD (S/P/Bld) [Vol rate/Area] mL/min/{1.73_m2} Normal [facility] Comment on above: Performed By: #### P T, PTT #### [address] Glucose [Mass/Vol] 259 mg/dL Significant change up 70-100 [facility] Comment on above: Result Comment: [facility] Glucose Reference Range is dependent on time and content of last meal. Glucose of more than 200 mg/dL in a nonstressed, ambulatory subject supports the diagnosis of Diabetes Mellitus. ADA recommended reference range Performed By: #### P T, PTT #### [address] Potassium [Moles/Vol] 3.7 mmol/L Normal 3.5-5.1 [facility] Comment on above: Performed By: #### P T, PTT #### [address] Sodium [Moles/Vol] 138 mmol/L Normal 136-145 [facility] Comment on above: Performed By: #### P T, PTT #### [place] [address] [place] Urea nitrogen [Mass/Vol] 23 mg/dL Normal 7-25 [facility] Comment on above: Performed By: #### P T, PTT #### [place] [address] [place] Calcium [Mass/volume] in Ser um or PlasmaOrdered By: Winter Norris on 11-24-2023 Calcium [Mass/Vol] 9.0 mg/dL 8.6-10.3 [facility] Carbon dioxide, total [Moles /volume] in Serum or PlasmaOrdered By: Winter Norris on 11-24-2023 CO2 [Moles/Vol] 30.8 mmol/L 21.0-31.0 [facility] Chloride [Moles/volume] in S me[place] or PlasmaOrdered By: Winter Norris on 11-24-2023 Chloride [Moles/Vol] 100 mmol/L 98-107 [facility] Creatinine [Mass/volume] in Serum or PlasmaOrdered By: Winter Norris on 11-24-2023 Creatinine [Mass/Vol] 0.91 mg/dL 0.60-1.20 [facility] Glucose Glucometer (BldC) [M ass/Vol]Ordered By: Winter Norris on 11-24-2023 Glucose [Mass/Vol] 271 mg/dL [facility] Comment on above: Random Glucose Refer ence Range is dependent on time and content of last meal. Glucose of more than 200 mg/dL in a nonstressed, ambulatory subject supports the diagnosis of Diabetes Mellitus. Glucose Poct Glucometerson 0 11-24-2023 Glucose [Mass/Vol] 271 mg/dL Normal [facility] Comment on above: Result Comment: [facility] Glucose Reference Range is dependent on time and content of last meal. Glucose of more than 200 mg/dL in a nonstressed, ambulatory subject supports the diagnosis of Diabetes Mellitus. PERFORMED BY: [place] [address] PATHOLOGIST CUSTOMER ACQUISITION MANAGER SUNNI CH M.D. Performed By: #### G LULS #### Point of Care testing , Glucose [Mass/Vol] 337 mg/dL Normal [facility] Comment on above: Result Comment: [facility] Glucose Reference Range is dependent on time and content of last meal. Glucose of more than 200 mg/dL in a nonstressed, ambulatory subject supports the diagnosis of Diabetes Mellitus. PERFORMED BY: [place] [address] PATHOLOGIST CUSTOMER ACQUISITION MANAGER SUNNI CH M.D. Performed By: #### P T, PTT #### [address] Glucose [Mass/Vol] 238 mg/dL Normal [facility] Comment on above: Result Comment: [place] Glucose Reference Range is dependent on time and content of last meal. Glucose of more than 200 mg/dL in a nonstressed, ambulatory subject supports the diagnosis of Diabetes Mellitus. PERFORMED BY: [place] [address] PATHOLOGIST CUSTOMER ACQUISITION MANAGER SUNNI CH M.D. Performed By: #### P T, PTT #### [facility] [address] [place] [address] Glucose [Mass/Vol] 173 mg/dL Normal [facility] Comment on above: Result Comment: [facility] Glucose Reference Range is dependent on time and content of last meal. Glucose of more than 200 mg/dL in a nonstressed, ambulatory subject supports the diagnosis of Diabetes Mellitus. PERFORMED BY: [place] [address] PATHOLOGIST CUSTOMER ACQUISITION MANAGER SUNNI CH M.D. Performed By: #### P T, PTT #### [facility] [address] [place] [address] Glucose [Mass/volume] in Ser um or PlasmaOrdered By: Winter Norris on 11-24-2023 Glucose [Mass/Vol] 259 mg/dL 70-100 [facility] Comment on above: [place]: 133 on [id number] recommended reference rangeRandom Glucose Reference Range is dependent on time and content of last meal. Glucose of more than 200 mg/dL in a nonstressed, ambulatory subject supports the diagnosis of Diabetes Mellitus. No Panel InformationOrdered By: Winter Norris on 11-24-2023 Estimated GFR (CKD-EPI) > 60.0 mL/Min [facility] Creatinine Clearance (Chem 85.70 [facility] Potassium [Moles/volume] in Serum or PlasmaOrdered By: Winter Norris on 11-24-2023 Potassium [Moles/Vol] 3.7 mmol/L 3.5-5.1 [facility] Serum or plasma anion gap de terminationOrdered By: Winter Norris on 11-24-2023 Anion gap [Moles/Vol] 10.9 mmol/L 6.0-15.0 [facility] Sodium [Moles/volume] in Ser um or PlasmaOrdered By: Winter Norris on 11-24-2023 Sodium [Moles/Vol] 138 mmol/L 136-145 [facility] Urea nitrogen [Mass/volume] in Serum or PlasmaOrdered By: Winter Norris on 11-24-2023 Urea nitrogen [Mass/Vol] 23 mg/dL 7-25 [facility] Basic Metabolic Panelon 11-07 Anion gap [Moles/Vol] 11.8 mmol/L Normal 6.0-15.0 [facility] Comment on above: Performed By: #### B MP, CBC #### [facility] [address] Calcium [Mass/Vol] 9.2 mg/dL Normal 8.6-10.3 [facility] Comment on above: Performed By: #### B MP, CBC #### [facility] [address] Chloride [Moles/Vol] 103 mmol/L Normal 98-107 [facility] Comment on above: Performed By: #### B MP, CBC #### [facility] [address] CO2 [Moles/Vol] 29.1 mmol/L Normal 21.0-31.0 [facility] Comment on above: Performed By: #### B MP, CBC #### [facility] [address] [place] [address] Creatinine [Mass/Vol] 0.94 mg/dL Normal 0.60-1.20 [facility] Comment on above: Performed By: #### B MP, CBC #### [facility] [address] [place] [address] [place] Creatinine Clr Calc Pharmacy 82.97 Normal [facility] Comment on above: Result Comment: PERF ORMED BY: [place] [address] PATHOLOGIST CUSTOMER ACQUISITION MANAGER SUNNI CH M.D. Performed By: #### B MP, CBC #### [address] GFR/1.73 sq M.predicted MDRD (S/P/Bld) [Vol rate/Area] mL/min/{1.73_m2} Normal [facility] Comment on above: Performed By: #### B MP, CBC #### [address] Glucose [Mass/Vol] 133 mg/dL High 70-100 [facility] Comment on above: Result Comment: [facility] Glucose Reference Range is dependent on time and content of last meal. Glucose of more than 200 mg/dL in a nonstressed, ambulatory subject supports the diagnosis of Diabetes Mellitus. ADA recommended reference range Performed By: #### B MP, CBC #### [address] Potassium [Moles/Vol] 3.9 mmol/L Normal 3.5-5.1 [facility] Comment on above: Performed By: #### B MP, CBC #### [address] Sodium [Moles/Vol] 140 mmol/L Normal 136-145 [facility] Comment on above: Performed By: #### B MP, CBC #### [address] Urea nitrogen [Mass/Vol] 23 mg/dL Normal 7-25 [facility] Comment on above: Performed By: #### B MP, CBC #### [place] [address] [place] Basophils Auto (Bld) [#/Vol] Ordered By: Winter Norris on 11-23-2023 Basophils (Bld) [#/Vol] 0.0 10*3/uL 0.0-0.2 [facility] Basophils/100 WBC Auto (Bld) Ordered By: Winter Norris on 11-23-2023 Basophils/100 WBC (Bld) 0.1 % . [facility] Complete Blood Count Auto Di ffon 11-23-2023 Basophils (Bld) [#/Vol] 0.0 10*3/uL Normal 0.0-0.2 [facility] Comment on above: Result Comment: PERF ORMED BY: [place] [address] PATHOLOGIST CUSTOMER ACQUISITION MANAGER SUNNI CH M.D. Performed By: #### B MP, CBC #### [address] Basophils/100 WBC (Bld) 0.1 % Normal . [facility] Comment on above: Performed By: #### B MP, CBC #### [address] Eosinophils (Bld) [#/Vol] 0.0 10*3/uL Normal 0.0-0.45 [facility] Comment on above: Performed By: #### B MP, CBC #### [address] Eosinophils/100 WBC (Bld) 0.0 % Normal . [facility] Comment on above: Performed By: #### B MP, CBC #### [address] Erythrocyte distribution width (RBC) [Ratio] 15.3 % Normal 11.9-15.3 [facility] Comment on above: Performed By: #### B MP, CBC #### [address] Hematocrit (Bld) [Volume fraction] 40.4 % Normal 34.0-46.4 [facility] Comment on above: Performed By: #### B MP, CBC #### [address] Hemoglobin (Bld) [Mass/Vol] 13.1 g/dL Normal 11.8-15.4 [facility] Comment on above: Performed By: #### B MP, CBC #### [address] Lymphocytes (Bld) [#/Vol] 1.7 10*3/uL Normal 1.00-4.8 [facility] Comment on above: Performed By: #### B MP, CBC #### [address] Lymphocytes/100 WBC (Bld) 17.7 % Normal . [facility] Comment on above: Performed By: #### B MP, CBC #### [address] MCH (RBC) [Entitic mass] 28.2 pg Normal 24.7-34.3 [facility] Comment on above: Performed By: #### B MP, CBC #### [address] MCV (RBC) [Entitic vol] 86.9 fL Normal 80-100 [facility] Comment on above: Performed By: #### B MP, CBC #### [address] Mean Corpuscular HGB Conc 32.4 g/dL Normal 32.0-35.0 [facility] Comment on above: Performed By: #### B MP, CBC #### [address] Monocytes (Bld) [#/Vol] 0.9 10*3/uL High 0.0-0.8 [facility] Comment on above: Performed By: #### B MP, CBC #### [address] Monocytes/100 WBC (Bld) 9.5 % Normal . [facility] Comment on above: Performed By: #### B MP, CBC #### [address] Neutrophils (Bld) [#/Vol] 7.0 10*3/uL Normal 1.8-7.7 [facility] Comment on above: Performed By: #### B MP, CBC #### [address] Neutrophils/100 WBC (Bld) 72.7 % Normal . [facility] Comment on above: Performed By: #### B MP, CBC #### [address] NRBC% 0.1 /100{WBC} Normal 0-0.5 [facility] Comment on above: Performed By: #### B MP, CBC #### [address] Platelet mean volume (Bld) [Entitic vol] 8.5 fL Normal 6.3-10.7 [facility] Comment on above: Performed By: #### B MP, CBC #### [address] Platelets (Bld) [#/Vol] 203 10*3/uL Normal 150-450 [facility] Comment on above: Performed By: #### B MP, CBC #### [address] RBC (Bld) [#/Vol] 4.65 10*6/uL Normal 3.60-5.00 [facility] Comment on above: Performed By: #### B MP, CBC #### [address] WBC (Bld) [#/Vol] 9.6 10*3/uL Normal 3.8-11.6 [facility] Comment on above: Performed By: #### B MP, CBC #### [address] Eosinophils Auto (Bld) [#/Vo l]Ordered By: Winter Norris on 11-23-2023 Eosinophils (Bld) [#/Vol] 0.0 10*3/uL 0.0-0.45 [facility] Eosinophils/100 WBC Auto (Bl d)Ordered By: Winter Norris on 11-23-2023 Eosinophils/100 WBC (Bld) 0.0 % . [facility] Erythrocyte distribution wid th Auto (RBC) [Ratio]Ordered By: Winter Norris on 11-23-2023 Erythrocyte distribution width (RBC) [Ratio] 15.3 % 11.9-15.3 [facility] Glucose Poct Glucometerson 0 11-23-2023 Glucose [Mass/Vol] 313 mg/dL Normal [facility] Comment on above: Result Comment: [place] om Glucose Reference Range is dependent on time and content of last meal. Glucose of more than 200 mg/dL in a nonstressed, ambulatory subject supports the diagnosis of Diabetes Mellitus. PERFORMED BY: [place] [address] PATHOLOGIST CUSTOMER ACQUISITION MANAGER SUNNI CH M.D. Performed By: #### P T, PTT #### [place] [address] [place] Commemt1 Glu2: Cleaned Meter Normal [facility] Comment on above: Result Comment: PERF ORMED BY: [place] [address] PATHOLOGIST CUSTOMER ACQUISITION MANAGER SUNNI CH M.D. Performed By: #### B MP, CBC #### [place] [address] [place] Glucose [Mass/Vol] 307 mg/dL Normal [facility] Comment on above: Result Comment: [place] om Glucose Reference Range is dependent on time and content of last meal. Glucose of more than 200 mg/dL in a nonstressed, ambulatory subject supports the diagnosis of Diabetes Mellitus. Performed By: #### B MP, CBC #### [place] [address] [place] Commemt1 Glu2: Cleaned Meter Normal [facility] Comment on above: Result Comment: PERF ORMED BY: [place] [address] PATHOLOGIST CUSTOMER ACQUISITION MANAGER SUNNI CH M.D. Performed By: #### P T, PTT #### [place] [address] [place] Glucose [Mass/Vol] 131 mg/dL Normal [facility] Comment on above: Result Comment: [place] om Glucose Reference Range is dependent on time and content of last meal. Glucose of more than 200 mg/dL in a nonstressed, ambulatory subject supports the diagnosis of Diabetes Mellitus. Performed By: #### P T, PTT #### [place] [id number] [place] Commemt1 Glu2: Cleaned Meter Normal [facility] Comment on above: Result Comment: PERF ORMED BY: [place] [address] PATHOLOGIST CUSTOMER ACQUISITION MANAGER SUNNI CH M.D. Performed By: #### P T, PTT #### [facility] [address] Glucose [Mass/Vol] 140 mg/dL Normal [facility] Comment on above: Result Comment: [place] Glucose Reference Range is dependent on time and content of last meal. Glucose of more than 200 mg/dL in a nonstressed, ambulatory subject supports the diagnosis of Diabetes Mellitus. Performed By: #### P T, PTT #### [facility] [address] Hematocrit Auto (Bld) [Volum e fraction]Ordered By: Winter Norris on 11-23-2023 Hematocrit (Bld) [Volume fraction] 40.4 % 34.0-46.4 [facility] Hemoglobin [Mass/volume] in BloodOrdered By: Winter Norris on 11-23-2023 Hemoglobin (Bld) [Mass/Vol] 13.1 g/dL 11.8-15.4 [facility] Leukocytes [#/volume] correc nargis for nucleated erythrocytes in Blood by Automated counOrdered By: Winter Norris on 11-23-2023 WBC corrected for nucl RBC Auto (Bld) [#/Vol] 9.6 10*3/uL 3.8-11.6 [facility] Lymphocytes Auto (Bld) [#/Vo l]Ordered By: Winter Norris on 11-23-2023 Lymphocytes (Bld) [#/Vol] 1.7 10*3/uL 1.00-4.8 [facility] Lymphocytes/100 WBC Auto (Bl d)Ordered By: Winter Norris on 11-23-2023 Lymphocytes/100 WBC (Bld) 17.7 % . [facility] MCH Auto (RBC) [Entitic mass ]Ordered By: Winter Norris on 11-23-2023 MCH (RBC) [Entitic mass] 28.2 pg 24.7-34.3 [facility] MCHC Auto (RBC) [Mass/Vol]Or dered By: Winter Norris on 11-23-2023 MCHC (RBC) [Mass/Vol] 32.4 g/dL 32.0-35.0 [facility] MCV Auto (RBC) [Entitic vol] Ordered By: Winter Norris on 11-23-2023 MCV (RBC) [Entitic vol] 86.9 fL 80-100 [facility] Monocytes Auto (Bld) [#/Vol] Ordered By: Winter Norris on 11-23-2023 Monocytes (Bld) [#/Vol] 0.9 10*3/uL 0.0-0.8 [facility] Monocytes/100 WBC Auto (Bld) Ordered By: Winter Norris on 11-23-2023 Monocytes/100 WBC (Bld) 9.5 % . [facility] Neutrophils Auto (Bld) [#/Vo l]Ordered By: Winter Norris on 11-23-2023 Neutrophils (Bld) [#/Vol] 7.0 10*3/uL 1.8-7.7 [facility] Neutrophils/100 WBC Auto (Bl d)Ordered By: Winter Norris on 11-23-2023 Neutrophils/100 WBC (Bld) 72.7 % . [facility] No Panel InformationOrdered By: Winter Norris on 11-23-2023 Bedside Glucose Comment Glu2: cleaned meter [facility] Nucleated erythrocytes [Pres ence] in Blood by Automated countOrdered By: Winter Norris on 11-23-2023 Nucleated RBC Auto Ql (Bld) 0.1 /100{WBC} 0-0.5 [facility] Platelet mean volume Auto (B ld) [Entitic vol]Ordered By: Winter Norris on 11-23-2023 Platelet mean volume (Bld) [Entitic vol] 8.5 fL 6.3-10.7 [facility] Platelets Auto (Bld) [#/Vol] Ordered By: Winter Norris on 11-23-2023 Platelets (Bld) [#/Vol] 203 10*3/uL 150-450 [facility] RBC Auto (Bld) [#/Vol]Ordere d By: Winter Norris on 11-23-2023 RBC (Bld) [#/Vol] 4.65 10*6/uL 3.60-5.00 [facility] WBC Auto (Bld) [#/Vol]Ordere d By: Winter Norris on 11-23-2023 WBC (Bld) [#/Vol] 9.6 10*3/uL 3.8-11.6 [facility] XR chest 1V portableon 11-22 XR chest 1V portable [facility] [place] [address] [place] [address] XRay Report Signed Patient: Melissa Dubose MR#: [id number] 70 : 1960 Acct:[id number] Age/Sex: 63 / F ADM Date: 11/21/23 Loc: Room: [address] [place] [address] Type: ADM IN Attending Dr: Winter Norris MD Copies to: Winter Norris MD Ordering Provider: Winter Norris MD Date of Service: 11/23/23 XR/XR chest 1V portable: hypoxia, cough XR chest 1V portable 11/23/2023 8:45 AM SIGNS AND SYMPTOMS: hypoxia, cough PROTOCOL: Frontal radiographs of the chest COMPARISON: 11/21/2023 FINDINGS: The trachea is midline. Atherosclerotic changes are present in the thoracic aorta. Sternotomy wires overlie the mediastinum. There is cardiomegaly with mild perihilar vascular prominence similar to the prior exam. The bony thorax is intact. XR/XR chest 1V portable IMPRESSION: There is cardiomegaly with mild perihilar vascular prominence similar to the prior exam. No focal consolidation or pleural effusion. Impression dictated by: Orville Oliver M.D.11/23/2023 10:44 AM Dictation Location: [place] [address] Transcribed By: [facility] 11/23/23 1044 Dictated By: Orville Oliver II, MD 11/23/23 1043 Signed By: 11/23/23 1044 Normal [facility] Activated partial thrombopla stin time (aPTT) in platelet poor plasma by coagulation aOrdered By: Justine Jacobo on 11-22-2023 aPTT Coag (PPP) [Time] 27.6 s 25.1-36.5 [facility] Comment on above: A hematocrit value g reater than 55% may lead to inaccurate results in coagulation testing. Patients having hematocrit values >55% require a special collection tube for coagulation studies. Please contact the laboratory at [phone] for redraw instructions. Blood Urea Nitrogenon 2023 Urea nitrogen [Mass/Vol] 24 mg/dL Normal 7-25 [facility] Comment on above: Performed By: #### P T, PTT #### [address] [address] Coagulation Profileon 2023 aPTT Coag (Bld) [Time] 27.6 s Normal 25.1-36.5 [facility] Comment on above: Result Comment: A he matocrit value greater than 55% may lead to inaccurate results in coagulation testing. Patients having hematocrit values >55% require a special collection tube for coagulation studies. Please contact the laboratory at [phone] for redraw instructions. PERFORMED BY: [place] [address] PATHOLOGIST CUSTOMER ACQUISITION MANAGER SUNNI CH M.D. Performed By: #### P T, PTT #### [address] [address] [facility] INR Coag (PPP) [Relative time] 1.2 {INR} Normal [facility] Comment on above: Result Comment: INR Therapeutic Range A) Pre- and Peroperative OAT started two weeks before surgery. NOT HIP SURGERY: 1.5 - 2.5 HIP SURGERY: 2 - 3 B) Primary and secondary prevention of venous THROMBOSIS: 2 - 3 C) Active venous thrombosis, pulmonary embolism and prevention of recurrent venous thrombosis: 2 - 3 D) Prevention of arterial thromboembolism including patients with mechanical heart valves: 3 - 4.5 Performed By: #### P T, PTT #### [place] [id number] [facility] PT Coag (PPP) [Time] 14.0 s High 9.0-12.9 [facility] Comment on above: Result Comment: A he matocrit value greater than 55% may lead to inaccurate results in coagulation testing. Patients having hematocrit values >55% require a special collection tube for coagulation studies. Please contact the laboratory at [phone] for redraw instructions. Performed By: #### P T, PTT #### [address] Complete Blood Count Auto Di ffon 11-22-2023 Basophils (Bld) [#/Vol] 0.0 10*3/uL Normal 0.0-0.2 [facility] Comment on above: Result Comment: PERF ORMED BY: [place] [address] PATHOLOGIST CUSTOMER ACQUISITION MANAGER SUNNI CH M.D. Performed By: #### P T, PTT #### [address] Basophils/100 WBC (Bld) 0.1 % Normal . [facility] Comment on above: Performed By: #### P T, PTT #### [address] Eosinophils (Bld) [#/Vol] 0.0 10*3/uL Normal 0.0-0.45 [facility] Comment on above: Performed By: #### P T, PTT #### [address] Eosinophils/100 WBC (Bld) 0.0 % Normal . [facility] Comment on above: Performed By: #### P T, PTT #### [address] Erythrocyte distribution width (RBC) [Ratio] 15.2 % Normal 11.9-15.3 [facility] Comment on above: Performed By: #### P T, PTT #### [address] Hematocrit (Bld) [Volume fraction] 36.9 % Normal 34.0-46.4 [facility] Comment on above: Performed By: #### P T, PTT #### [address] Hemoglobin (Bld) [Mass/Vol] 11.9 g/dL Normal 11.8-15.4 [facility] Comment on above: Performed By: #### P T, PTT #### [address] Lymphocytes (Bld) [#/Vol] 0.6 10*3/uL Low 1.00-4.8 [facility] Comment on above: Performed By: #### P T, PTT #### [address] Lymphocytes/100 WBC (Bld) 10.0 % Normal . [facility] Comment on above: Performed By: #### P T, PTT #### [address] MCH (RBC) [Entitic mass] 28.5 pg Normal 24.7-34.3 [facility] Comment on above: Performed By: #### P T, PTT #### [address] MCV (RBC) [Entitic vol] 88.2 fL Normal 80-100 [facility] Comment on above: Performed By: #### P T, PTT #### [address] Mean Corpuscular HGB Conc 32.4 g/dL Normal 32.0-35.0 [facility] Comment on above: Performed By: #### P T, PTT #### [address] Monocytes (Bld) [#/Vol] 0.6 10*3/uL Normal 0.0-0.8 [facility] Comment on above: Performed By: #### P T, PTT #### [address] Monocytes/100 WBC (Bld) 8.6 % Normal . [facility] Comment on above: Performed By: #### P T, PTT #### [address] [place] [address] [place] Neutrophils (Bld) [#/Vol] 5.3 10*3/uL Normal 1.8-7.7 [facility] Comment on above: Performed By: #### P T, PTT #### [place] [address] [place] Neutrophils/100 WBC (Bld) 81.3 % Normal . [facility] Comment on above: Performed By: #### P T, PTT #### [address] NRBC% 0.1 /100{WBC} Normal 0-0.5 [facility] Comment on above: Performed By: #### P T, PTT #### [address] Platelet mean volume (Bld) [Entitic vol] 8.5 fL Normal 6.3-10.7 [facility] Comment on above: Performed By: #### P T, PTT #### [place] [address] [place] Platelets (Bld) [#/Vol] 177 10*3/uL Normal 150-450 [facility] Comment on above: Performed By: #### P T, PTT #### [place] [address] [place] RBC (Bld) [#/Vol] 4.18 10*6/uL Normal 3.60-5.00 [facility] Comment on above: Performed By: #### P T, PTT #### [place] [address] [place] WBC (Bld) [#/Vol] 6.5 10*3/uL Normal 3.8-11.6 [facility] Comment on above: Performed By: #### P T, PTT #### [place] [address] [place] Creatinineon 11-22-2023 Creatinine [Mass/Vol] 1.15 mg/dL Normal 0.60-1.20 [facility] Comment on above: Performed By: #### P T, PTT #### [address] Creatinine Clr Calc Pharmacy 68.56 Normal [facility] Comment on above: Result Comment: PERF ORMED BY: [place] [address] PATHOLOGIST CUSTOMER ACQUISITION MANAGER SUNNI CH M.D. Performed By: #### P T, PTT #### [address] GFR/1.73 sq M.predicted MDRD (S/P/Bld) [Vol rate/Area] 54.198 mL/min/{1.73_m2} Normal [facility] Comment on above: Performed By: #### P T, PTT #### [address] Electrolyteson 11-22-2023 Anion gap [Moles/Vol] 11.4 mmol/L Normal 6.0-15.0 e [facility] Comment on above: Performed By: #### P T, PTT #### [address] Chloride [Moles/Vol] 103 mmol/L Normal 98-107 [facility] Comment on above: Performed By: #### P T, PTT #### [address] CO2 [Moles/Vol] 28.3 mmol/L Normal 21.0-31.0 [facility] Comment on above: Performed By: #### P T, PTT #### [address] Potassium [Moles/Vol] 4.7 mmol/L Normal 3.5-5.1 [facility] Comment on above: Performed By: #### P T, PTT #### [address] Sodium [Moles/Vol] 138 mmol/L Normal 136-145 [facility] Comment on above: Performed By: #### P T, PTT #### [address] Glucose Poct Glucometerson 0 11-22-2023 Glucose [Mass/Vol] 351 mg/dL Normal [facility] Comment on above: Result Comment: [place] Glucose Reference Range is dependent on time and content of last meal. Glucose of more than 200 mg/dL in a nonstressed, ambulatory subject supports the diagnosis of Diabetes Mellitus. PERFORMED BY: [place] [address] PATHOLOGIST CUSTOMER ACQUISITION MANAGER SUNNI CH M.D. Performed By: #### B MP, CBC #### [facility] [address] [place] [address] Glucose [Mass/Vol] 181 mg/dL Normal [facility] Comment on above: Result Comment: [place] Glucose Reference Range is dependent on time and content of last meal. Glucose of more than 200 mg/dL in a nonstressed, ambulatory subject supports the diagnosis of Diabetes Mellitus. PERFORMED BY: [place] [address] PATHOLOGIST CUSTOMER ACQUISITION MANAGER SUNNI CH M.D. Performed By: #### P T, PTT #### [facility] [address] [place] [address] Glucose [Mass/Vol] 354 mg/dL Normal [facility] Comment on above: Result Comment: [place] Glucose Reference Range is dependent on time and content of last meal. Glucose of more than 200 mg/dL in a nonstressed, ambulatory subject supports the diagnosis of Diabetes Mellitus. PERFORMED BY: [place] [address] PATHOLOGIST CUSTOMER ACQUISITION MANAGER SUNNI CH M.D. Performed By: #### G LULS #### Point of Care testing , INR in Platelet poor plasma by Coagulation assayOrdered By: Justine Jacobo on 11-22-2023 INR Coag (PPP) [Relative time] 1.2 {INR} [facility] Comment on above: INR Therapeutic Rang e A) Pre- and Peroperative OAT started two weeks before surgery. NOT HIP SURGERY: 1.5 - 2.5 HIP SURGERY: 2 - 3B) Primary and secondary prevention of venous THROMBOSIS: 2 - 3C) Active venous thrombosis, pulmonary embolismand prevention of recurrent venous thrombosis: 2 - 3D) Prevention of arterial thromboembolismincluding patients with mechanical heart valves: 3 - 4.5 Prothrombin time (PT)Ordered By: Justine Jacobo on 11-22-2023 PT Coag (PPP) [Time] 14.0 s 9.0-12.9 [facility] Comment on above: A hematocrit value g reater than 55% may lead to inaccurate results in coagulation testing. Patients having hematocrit values >55% require a special collection tube for coagulation studies. Please contact the laboratory at [phone] for redraw instructions. A1C with Estimated Average G tyson 11-21-2023 Glucose [Mass/Vol] 88 mg/dL Normal [facility] Comment on above: Result Comment: PERF ORMED BY: [place] [address] PATHOLOGIST CUSTOMER ACQUISITION MANAGER SUNNI CH M.D. Performed By: #### P T, PTT #### [facility] [address] [place] [address] HbA1c (Bld) [Mass fraction] 4.7 % Normal 4.3-5.6 [facility] Comment on above: Result Comment: Incr eased risk for diabetes: 5.7 - 6.4 diabetes: >6.4 glycemic control for adults with diabetes: <7.0 Performed By: #### P T, PTT #### [facility] [address] [place] [address] Automated erythrocytes count in urine sediment (number/area)Ordered By: Winter Norris on 11-21-2023 RBC Auto (Urine sed) [#/Area] 1-2 [HPF] 0-4 [facility] Automated leukocytes count i n urine sediment (number/area)Ordered By: Winter Norris on 11-21-2023 WBC Auto (Urine sed) [#/Area] 0-1 [HPF] 0-4 [facility] Basic Metabolic Panelon 11-07 Anion gap [Moles/Vol] 12.9 mmol/L Normal 6.0-15.0 Th e [facility] Comment on above: Performed By: #### B MP, CBC #### [address] Calcium [Mass/Vol] 8.4 mg/dL Low 8.6-10.3 [facility] Comment on above: Performed By: #### B MP, CBC #### [place] [address] [place] Chloride [Moles/Vol] 106 mmol/L Normal 98-107 [facility] Comment on above: Performed By: #### B MP, CBC #### [address] CO2 [Moles/Vol] 22.3 mmol/L Normal 21.0-31.0 [facility] Comment on above: Performed By: #### B MP, CBC #### [address] Creatinine [Mass/Vol] 0.96 mg/dL Normal 0.60-1.20 [facility] Comment on above: Performed By: #### B MP, CBC #### [place] [address] [place] Creatinine Clr Calc Pharmacy 82.13 Normal [facility] Comment on above: Result Comment: PERF ORMED BY: [place] [address] PATHOLOGIST CUSTOMER ACQUISITION MANAGER SUNNI CH M.D. Performed By: #### B MP, CBC #### [place] [address] [place] GFR/1.73 sq M.predicted MDRD (S/P/Bld) [Vol rate/Area] mL/min/{1.73_m2} Normal [facility] Comment on above: Performed By: #### B MP, CBC #### [place] [address] [place] Glucose [Mass/Vol] 260 mg/dL High 70-100 [facility] Comment on above: Result Comment: [place] Glucose Reference Range is dependent on time and content of last meal. Glucose of more than 200 mg/dL in a nonstressed, ambulatory subject supports the diagnosis of Diabetes Mellitus. ADA recommended reference range Performed By: #### B MP, CBC #### [facility] [address] Potassium [Moles/Vol] 4.2 mmol/L Normal 3.5-5.1 [facility] Comment on above: Performed By: #### B MP, CBC #### [facility] [address] Sodium [Moles/Vol] 137 mmol/L Normal 136-145 [facility] Comment on above: Performed By: #### B MP, CBC #### [facility] [address] Urea nitrogen [Mass/Vol] 18 mg/dL Normal 7-25 [facility] Comment on above: Performed By: #### B MP, CBC #### [facility] [address] Bilirubin Test strip Ql (U)O rdered By: Winter Norris on 11-21-2023 Bilirubin Ql (U) Negative Negative [facility] Cholesterol [Mass/volume] in Serum or PlasmaOrdered By: Karen Mays on 11-21-2023 Cholesterol [Mass/Vol] 95 mg/dL 140-200 [facility] Comment on above: Chol less than 200 m g/dl low riskChol 201-239 mg/dl borderline riskChol 240 mg/dl and greater high risk Cholesterol in LDL Calc [Mas s/Vol]Ordered By: Karen Mays on 11-21-2023 Cholesterol in LDL [Mass/Vol] 53 mg/dL 0-100 [facility] Comment on above: LDL ATP III CLASSIFI CATIONLDL less than 100 mg/dL OptimalLDL 100-129 mg/dL Near or above optimalLDL 130-159 mg/dL Borderline highLDL 160-189 mg/dL HighLDL greater than 189 mg/dL Very high Cholesterol in VLDL Calc [Ma ss/Vol]Ordered By: Karen Mays on 11-21-2023 Cholesterol in VLDL [Mass/Vol] 12 mg/dL [facility] Color Auto (U)Ordered By: Juanita Norris on 11-21-2023 Color (U) Yellow Yellow [facility] Complete Blood Count Auto Di ffon 11-21-2023 Basophils (Bld) [#/Vol] 0.0 10*3/uL Normal 0.0-0.2 [facility] Comment on above: Result Comment: PERF ORMED BY: [place] [address] PATHOLOGIST CUSTOMER ACQUISITION MANAGER SUNNI CH M.D. Performed By: #### B MP, CBC #### [address] Basophils/100 WBC (Bld) 0.3 % Normal . [facility] Comment on above: Performed By: #### B MP, CBC #### [place] [address] [place] Eosinophils (Bld) [#/Vol] 0.0 10*3/uL Normal 0.0-0.45 [facility] Comment on above: Performed By: #### B MP, CBC #### [address] Eosinophils/100 WBC (Bld) 0.0 % Normal . [facility] Comment on above: Performed By: #### B MP, CBC #### [address] Erythrocyte distribution width (RBC) [Ratio] 15.3 % Normal 11.9-15.3 [facility] Comment on above: Performed By: #### B MP, CBC #### [address] Hematocrit (Bld) [Volume fraction] 37.6 % Normal 34.0-46.4 [facility] Comment on above: Performed By: #### B MP, CBC #### [address] Hemoglobin (Bld) [Mass/Vol] 12.3 g/dL Normal 11.8-15.4 [facility] Comment on above: Performed By: #### B MP, CBC #### [address] Lymphocytes (Bld) [#/Vol] 0.3 10*3/uL Low 1.00-4.8 [facility] Comment on above: Performed By: #### B MP, CBC #### [address] Lymphocytes/100 WBC (Bld) 5.3 % Normal . [facility] Comment on above: Performed By: #### B MP, CBC #### [address] MCH (RBC) [Entitic mass] 29.0 pg Normal 24.7-34.3 [facility] Comment on above: Performed By: #### B MP, CBC #### [address] MCV (RBC) [Entitic vol] 88.3 fL Normal 80-100 [facility] Comment on above: Performed By: #### B MP, CBC #### [address] Mean Corpuscular HGB Conc 32.8 g/dL Normal 32.0-35.0 [facility] Comment on above: Performed By: #### B MP, CBC #### [place] [address] [place] Monocytes (Bld) [#/Vol] 0.1 10*3/uL Normal 0.0-0.8 [facility] Comment on above: Performed By: #### B MP, CBC #### [place] [address] [place] Monocytes/100 WBC (Bld) 2.4 % Normal . [facility] Comment on above: Performed By: #### B MP, CBC #### [address] Neutrophils (Bld) [#/Vol] 4.9 10*3/uL Normal 1.8-7.7 [facility] Comment on above: Performed By: #### B MP, CBC #### [address] Neutrophils/100 WBC (Bld) 92.0 % Normal . [facility] Comment on above: Performed By: #### B MP, CBC #### [address] NRBC% 0.0 /100{WBC} Normal 0-0.5 [facility] Comment on above: Performed By: #### B MP, CBC #### [address] Platelet mean volume (Bld) [Entitic vol] 8.3 fL Normal 6.3-10.7 [facility] Comment on above: Performed By: #### B MP, CBC #### [address] Platelets (Bld) [#/Vol] 158 10*3/uL Normal 150-450 [facility] Comment on above: Performed By: #### B MP, CBC #### [address] RBC (Bld) [#/Vol] 4.25 10*6/uL Normal 3.60-5.00 [facility] Comment on above: Performed By: #### B MP, CBC #### [address] WBC (Bld) [#/Vol] 5.4 10*3/uL Normal 3.8-11.6 [facility] Comment on above: Performed By: #### B MP, CBC #### [place] [address] [place] Dipstick and Microscopicon 0 11-21-2023 Appearance (U) Clear Normal Clear [facility] Comment on above: Order Comment: Name Collection Type:: Clean-Voided Midstream Performed By: #### B MP, CBC #### [place] [address] [place] Bacteria,Urine None Seen Normal None Seen [facility] Comment on above: Order Comment: Name Collection Type:: Clean-Voided Midstream Performed By: #### B MP, CBC #### [address] Bilirubin,Urine Negative Normal Negative [facility] Comment on above: Order Comment: Name Collection Type:: Clean-Voided Midstream Performed By: #### B MP, CBC #### [facility] [address] [place] [address] [place] Color (U) Yellow Normal Yellow [facility] Comment on above: Order Comment: Name Collection Type:: Clean-Voided Midstream Performed By: #### B MP, CBC #### [facility] [address] Glucose Ql (U) >=1000 High Normal [facility] Comment on above: Order Comment: Name Collection Type:: Clean-Voided Midstream Performed By: #### B MP, CBC #### [place] [address] [place] Hyaline Casts,Urine None Seen Normal 0-8 [facility] Comment on above: Order Comment: Name Collection Type:: Clean-Voided Midstream Result Comment: PERF ORMED BY: [place] [address] PATHOLOGIST CUSTOMER ACQUISITION MANAGER SUNNI CH M.D. Performed By: #### B MP, CBC #### [address] Ketones Ql (U) Negative Normal Negative [facility] Comment on above: Order Comment: Name Collection Type:: Clean-Voided Midstream Performed By: #### B MP, CBC #### [place] [address] [place] Leukocyte esterase Test strip Ql (U) Negative Normal Negative [facility] Comment on above: Order Comment: Name Collection Type:: Clean-Voided Midstream Performed By: #### B MP, CBC #### [place] [address] [place] Nitrite,Urine Negative Normal Negative [facility] Comment on above: Order Comment: Name Collection Type:: Clean-Voided Midstream Performed By: #### B MP, CBC #### [facility] [address] [place] [address] [place] Occult Blood,Urine 1+ High Negative [facility] Comment on above: Order Comment: Name Collection Type:: Clean-Voided Midstream Result Comment: PERF ORMED BY: [place] [address] PATHOLOGIST CUSTOMER ACQUISITION MANAGER SUNNI CH M.D. Performed By: #### B MP, CBC #### [address] pH (U) 5.5 [pH] Normal 5.0-9.0 [facility] Comment on above: Order Comment: Name Collection Type:: Clean-Voided Midstream Performed By: #### B MP, CBC #### [address] Protein,Urine Negative Normal Negative [facility] Comment on above: Order Comment: Name Collection Type:: Clean-Voided Midstream Performed By: #### B MP, CBC #### [address] RBC,Urine 1-2 Normal 0-4 [facility] Comment on above: Order Comment: Name Collection Type:: Clean-Voided Midstream Performed By: #### B MP, CBC #### [place] [address] [place] Specificy [place],Urine 1.012 Normal 1.001-1.03 0 [facility] Comment on above: Order Comment: Name Collection Type:: Clean-Voided Midstream Performed By: #### B MP, CBC #### [place] [address] [place] Squamous Epithelial Cell,Urine None Seen Normal 0-2 [facility] Comment on above: Order Comment: Name Collection Type:: Clean-Voided Midstream Performed By: #### B MP, CBC #### [place] [address] [place] Urobilinogen,Urine Normal Normal Normal [facility] Comment on above: Order Comment: Name Collection Type:: Clean-Voided Midstream Performed By: #### B MP, CBC #### [place] [address] [place] WBC LM.HPF (Urine sed) [#/Area] 0 /[HPF] Normal 0-4 [facility] Comment on above: Order Comment: Name Collection Type:: Clean-Voided Midstream Performed By: #### B MP, CBC #### [address] ECG 12 lead ECGon 11-21-2023 ECG 12 lead ECG [facility] [place] [address] Electrocardiograph Report Signed Patient: Melissa Dubose MR#: [id number] [birth year] : 1960 Acct:[id number] Age/Sex: 63 / F ADM Date: 11/21/23 Loc: 4 Room: [address] [place] [address] Type: ADM IN Attending Dr: Winter Norris MD Ordering Provider: Karen Mays APRN Date of Service: 11/21/23 ECG/ECG 12 lead ECG: nstemi Copies to: Test Reason : Blood Pressure : / mmHG Vent. Rate : 093 BPM Atrial Rate : 267 BPM P-R Int : 000 ms QRS Dur : 108 ms QT Int : 368 ms P-R-T Axes : 000 100 091 degrees QTc Int : 457 ms Atrial fibrillation Rightward axis Nonspecific T wave abnormality Abnormal ECG No previous ECGs available Confirmed by LAURIE VINCENT MD ([id number]) on 11/21/2023 12:32:18 PM Referred By: Electronically Signed By:LAURIE VINCENT MD Transcribed By: MUS Signed By Laurie Vincent MD 0 11/21/23 1232 Normal [facility] echo transthoracicon E[facility] echo transthoracic [facility] [place] [address] Echocardiogram Signed Patient: Melissa Dubose MR#: [id number] 70 : 1960 Acct:[id number] Age/Sex: 63 / F ADM Date: 11/21/23 Loc: 4 Room: [address] [place] [address] Type: ADM IN Attending Dr: Winter Norris MD Ordering Provider: Karen Mays APRN Date of Service: 11/21/23 [facility] echo transthoracic: nstemi Copies to: MD Karen Treadwell, GANG [employer]ER Weight: 239 lb Performed By: WILMA Rangel BSA: 2.3 m2 BP: 138/79 mmHg HR: 94 Reason For Study: nstemi History: [place]. HTN. DM. CABG. Former Smoker. Interpretation Summary The left ventricle is severly dilated. The LV ejection fraction is severely decreased . The LV ejection fraction is 25 %. The left atrium appears severely dilated. The right atrium is moderately dilated. There is moderate to severe mitral regurgitation. There is mild tricuspid regurgitation. The right ventricular systolic pressure is 60 mmHg. Right ventricular systolic pressure is consistent with severe pulmonary hypertension. Moderately dilated inferior vena cava Colorflow a.cross the atrial septum suggests a small atrial septal defect or Patent Foramen Ovale. There is no comparison study available. Procedure/Quality: A two-dimensional transthoracic echocardiogram with color flow, Doppler and injection of contrast agent Definity was performed. The study was technically good in quality. Left Ventricle: The left ventricular thickness is normal. The left ventricle is severly dilated. The LV ejection fraction is severely decreased . The LV ejection fraction is 25 %. Left Atrium: The left atrium appears severely dilated. Colorflow a.cross the atrial septum suggests a small atrial septal defect or Patent Foramen Ovale. Right Atrium: The right atrium is moderately dilated. Aortic Valve: The aortic valve is normal in structure. No aortic regurgitation is present. Mitral Valve: The mitral valve is moderately sclerotic. There is moderate to severe mitral regurgitation. Tricuspid Valve: The tricuspid valve is normal. There is mild tricuspid regurgitation. The right ventricular systolic pressure is 60 mmHg. Right ventricular systolic pressure is consistent with severe pulmonary hypertension. Pulmonic Valve: The pulmonic valve leaflets are thin and pliable; valve motion is normal. Arteries: The aortic root is normal size. Pericardium/Pleura: No pericardial effusion seen. There is no pleural effusion. IVC/Hepatic Veins: Moderately dilated inferior vena cava. Measurements with Normals IVSd: 1.0 cm (0.7-1.1 cm)LVIDd: 6.7 cm (3.7-5.4 cm) LVPWd: 0.91 cm (0.7-1.1 cm)LVIDs: 5.7 cm (2.3-3.6 cm) LA dimension: 5.7 cm (2.3-4.0 cm)Ao root diam: 3.6 cm(2.0-3.6 cm) asc Aorta Diam: 3.6 cm(2.1-3.4cm) Doppler with Normals RVSP(TR): 64.2 mmHg (18-35mmHg) LV V1 max: 105.6 cm/sec (0.7-1.7m/s)MV E max raymon: 125.0 cm/sec(0.8-1.3m/s) MV A max raymon: 49.8 cm/sec(0.0-0.0m/s) MV E/A: 2.5 (<1.5) MMode/2D Measurements Calculations RVDd: 3.4 cm RV Base: 2.5 cm FS: 14.3 % Ao root area: TAPSE: 1.9 cm RV Mid: 1.7 cm EDV(Teich): 231.1 ml 9.9 cm2 RV S Raymon: RV Length: 8.1 cm ESV(Teich): 162.8 ml 9.7 cm/sec EF(Teich): 29.6 % __ LVOT diam: 2.0 cm LVLd ap4: 9.8 cm SV(MOD-sp4): 83.0 ml LAV(MOD-sp4): LVOT area: 3.1 cm2 EDV(MOD-sp4): 87.6 ml 317.0 ml LAV(MOD-sp2): LVLs ap4: 8.6 cm 115.0 ml ESV(MOD-sp4): 234.0 ml EF(MOD-sp4): 26.2 % __ LA A2 area: RA Volume: RA Volume Index: 30.4 cm2 48.3 ml 21.5 ml/m2 LA A4 area: 26.2 cm2 LA length (vol): 6.3 cm LA vol: 107.1 ml LA vol index: 47.6 ml/m2 Doppler Measurements Calculations MV dec time: MV max PG: E/E' lat: 12.0 MV dec slope: 0.21 sec 99.0 mmHg E/E' med: 12.2 610.8 cm/sec2 __ Ao V2 max: LV V1 max PG: MR max raymon: TV max P.0 mmHg 137.5 cm/sec 4.5 mmHg 497.8 cm/sec Ao max P.6 mmHgLV V1 mean PG: MR max PG: Ao mean P.2 mmHg 99.2 mmHg 4.4 mmHg LV V1 mean: Ao V2 mean: 70.3 cm/sec 101.5 cm/sec LV V1 VTI: 20.7 cm Ao V2 VTI: 23.9 cm FAY(I,D): 2.7 cm2 FAY(V,D): 2.4 cm2 __ TR max raymon: 350.8 cm/sec TR max P.2 mmHg RAP systole: 15.0 mmHg Transcribed By: ALDO Performed At: 11/21/23 0902 Signed By: Laurie Vincent MD 11/21/23 1116 Normal [facility] Glucose Poct Glucometerson 0 11-21-2023 Commemt1 Normal [facility] Comment on above: Result Comment: Glu2 : WILL NOTIFY DR/RN Performed By: #### P T, PTT #### [address] Commemt2 Cleaned Meter Normal [facility] Comment on above: Performed By: #### P T, PTT #### [address] Commemt3 Will Repeat Test Normal [facility] Comment on above: Result Comment: PERF ORMED BY: [place] [address] PATHOLOGIST CUSTOMER ACQUISITION MANAGER SUNNI CH M.D. Performed By: #### P T, PTT #### [address] Glucose [Mass/Vol] 405 mg/dL Off scale high e [facility] Comment on above: Result Comment: [place] om Glucose Reference Range is dependent on time and content of last meal. Glucose of more than 200 mg/dL in a nonstressed, ambulatory subject supports the diagnosis of Diabetes Mellitus. Performed By: #### P T, PTT #### [facility] [address] [place] [address] [place] Glucose [Mass/Vol] 345 mg/dL Normal [facility] Comment on above: Result Comment: [place] om Glucose Reference Range is dependent on time and content of last meal. Glucose of more than 200 mg/dL in a nonstressed, ambulatory subject supports the diagnosis of Diabetes Mellitus. PERFORMED BY: [place] [address] PATHOLOGIST CUSTOMER ACQUISITION MANAGER SUNNI CH M.D. Performed By: #### B MP, CBC #### [place] [address] [place] Glucose [Mass/Vol] 367 mg/dL Normal [facility] Comment on above: Result Comment: [place] om Glucose Reference Range is dependent on time and content of last meal. Glucose of more than 200 mg/dL in a nonstressed, ambulatory subject supports the diagnosis of Diabetes Mellitus. PERFORMED BY: [place] [address] PATHOLOGIST CUSTOMER ACQUISITION MANAGER SUNNI CH M.D. Performed By: #### B MP, CBC #### [address] Glucose [Mass/Vol] 281 mg/dL Normal [facility] Comment on above: Result Comment: [place] Glucose Reference Range is dependent on time and content of last meal. Glucose of more than 200 mg/dL in a nonstressed, ambulatory subject supports the diagnosis of Diabetes Mellitus. PERFORMED BY: [place] [address] PATHOLOGIST CUSTOMER ACQUISITION MANAGER SUNNI CH M.D. Performed By: #### B MP, CBC #### [address] [address] Glucose mean value [Mass/vol ume] in Blood Estimated from glycated hemoglobinOrdered By: Karen Mays on 11-21-2023 Average glucose Estimated from glycated hemoglobin (Bld) [Mass/Vol] 88 mg/dL [facility] Hemoglobin A1c percentageOrd ered By: Karen Mays on 11-21-2023 HbA1c (Bld) [Mass fraction] 4.7 % 4.3-5.6 [facility] Comment on above: Increased risk for d iabetes: 5.7 - 6.4diabetes: >6.4glycemic control for adults with diabetes: <7.0 Ketones Auto test strip (U) [Mass/Vol]Ordered By: Winter Norris on 11-21-2023 Ketones (U) [Mass/Vol] Negative Negative [facility] - UrinalysisOrder ed By: Witner Norris on 11-21-2023 Hyaline casts LM Ql (Urine sed) None seen [LPF] 0-8 [facility] Lactate [Moles/volume] in Se rum or PlasmaOrdered By: aKren Mays on 11-21-2023 Lactate [Moles/Vol] 1.5 mmol/L 0.5-2.2 [facility] Lactic Acidon 11-21-2023 Lactate [Moles/Vol] 1.5 mmol/L Normal 0.5-2.2 [facility] Comment on above: Result Comment: PERF ORMED BY: [place] [address] PATHOLOGIST CUSTOMER ACQUISITION MANAGER SUNNI CH M.D. Performed By: #### B MP, CBC #### [facility] [address] Lipid Panelon 11-21-2023 Cholesterol [Mass/Vol] 95 mg/dL Low 140-200 [facility] Comment on above: Result Comment: Chol less than 200 mg/dl low risk Chol 201-239 mg/dl borderline risk Chol 240 mg/dl and greater high risk Performed By: #### L IPID, A1C WTH eA #### [facility] [address] [place] [id number] [facility] Cholesterol in HDL [Mass/Vol] 29 mg/dL Normal 23-92 [facility] Comment on above: Result Comment: HDL CHOL ATP-III CLASSIFICATION Cardiovascular Risk HDL > or equal to 60 mg/dL LOW HDL < 40 mg/dL HIGH Performed By: #### L IPID, [address] eA #### [address] Cholesterol.total/Cho lesterol in HDL [Mass ratio] 3.3 {ratio} Normal <5.0 [facility] Comment on above: Result Comment: PERF ORMED BY: [place] [address] PATHOLOGIST CUSTOMER ACQUISITION MANAGER SUNNI CH M.D. Performed By: #### L IPID, [address] eA #### [address] LDL Cholesterol,Calculate d 53 mg/dL Normal 0-100 [facility] Comment on above: Result Comment: LDL ATP III CLASSIFICATION LDL less than 100 mg/dL Optimal LDL 100-129 mg/dL Near or above optimal LDL 130-159 mg/dL Borderline high LDL 160-189 mg/dL High LDL greater than 189 mg/dL Very high Performed By: #### L IPID, [address] eA #### [address] Triglyceride w/Reflex 63 mg/dL Normal 0-149 [facility] Comment on above: Result Comment: TRIG ATP III CLASSIFICATION TRIG less than 150 mg/dL Normal TRIG 150-199 mg/dL Borderline high TRIG 200-500 mg/dL High TRIG greater than 500 mg/dL Very high Standard traceable to the Center for Disease Conrtrol and Prevention (CDC) test method. Performed By: #### L IPID, [address] eA #### [address] VLDL CHOLESTEROL 12 mg/dL Normal [facility] Comment on above: Performed By: #### L IPID, [address] eA #### [address] Nitrite Test strip Ql (U)Ord ered By: Winter Norris on 11-21-2023 Nitrite Ql (U) Negative Negative [facility] No Panel InformationOrdered By: Winter Norris on 11-21-2023 Bedside Glucose #2 Comment Cleaned meter [facility] Bedside Glucose #3 Comment Will repeat test [facility] Partial Thromboplastin Timeo n 11-21-2023 aPTT Coag (Bld) [Time] 47.2 s High 25.1-36.5 [facility] Comment on above: Order Comment: List the anticoagulant: HEPARIN, UNFRACTIONATED Result Comment: A he matocrit value greater than 55% may lead to inaccurate results in coagulation testing. Patients having hematocrit values >55% require a special collection tube for coagulation studies. Please contact the laboratory at [phone] for redraw instructions. PERFORMED BY: [place] [address] PATHOLOGIST CUSTOMER ACQUISITION MANAGER SUNNI CH M.D. Performed By: #### P TT #### [facility] [address] [place] [address] [facility] aPTT Coag (Bld) [Time] 152.4 s Off scale high 25.1-36.5 [facility] Comment on above: Order Comment: List the anticoagulant: HEPARIN, UNFRACTIONATED Result Comment: Crit ical value result called at 1511 on 11/21/23 A hematocrit value greater than 55% may lead to inaccurate results in coagulation testing. Patients having hematocrit values >55% require a special collection tube for coagulation studies. Please contact the laboratory at [phone] for redraw instructions. PERFORMED BY: [place] [address] PATHOLOGIST CUSTOMER ACQUISITION MANAGER SUNNI CH M.D. Performed By: #### B MP, CBC #### [facility] [address] [place] [address] [place] aPTT Coag (Bld) [Time] s Off scale high 25.1-36.5 [facility] Comment on above: Order Comment: DRAW ALL LABS AT 1015 PER CHARLES COLLINS List the anticoagulant: HEPARIN, UNFRACTIONATED Result Comment: Crit ical value result called at 1152 on 11/21/23 A hematocrit value greater than 55% may lead to inaccurate results in coagulation testing. Patients having hematocrit values >55% require a special collection tube for coagulation studies. Please contact the laboratory at [phone] for redraw instructions. PERFORMED BY: [place] [address] PATHOLOGIST CUSTOMER ACQUISITION MANAGER SUNNI CH M.D. Performed By: #### B MP, CBC #### [address] aPTT Coag (Bld) [Time] 51.3 s High 25.1-36.5 [facility] Comment on above: Result Comment: A he matocrit value greater than 55% may lead to inaccurate results in coagulation testing. Patients having hematocrit values >55% require a special collection tube for coagulation studies. Please contact the laboratory at [phone] for redraw instructions. PERFORMED BY: [place] [address] PATHOLOGIST CUSTOMER ACQUISITION MANAGER SUNNI CH M.D. Performed By: #### P T, PTT #### [place] [id number] [facility] Protein Auto test strip (U) [Mass/Vol]Ordered By: Witner Norris on 11-21-2023 Protein (U) [Mass/Vol] Negative Negative [facility] Prothrombin Time INRon 11-20 INR Coag (PPP) [Relative time] 1.4 {INR} Normal [facility] Comment on above: Result Comment: INR Therapeutic Range A) Pre- and Peroperative OAT started two weeks before surgery. NOT HIP SURGERY: 1.5 - 2.5 HIP SURGERY: 2 - 3 B) Primary and secondary prevention of venous THROMBOSIS: 2 - 3 C) Active venous thrombosis, pulmonary embolism and prevention of recurrent venous thrombosis: 2 - 3 D) Prevention of arterial thromboembolism including patients with mechanical heart valves: 3 - 4.5 Performed By: #### P T, PTT #### [place] [id number] [facility] PT Coag (PPP) [Time] 15.6 s High 9.0-12.9 [facility] Comment on above: Result Comment: A he matocrit value greater than 55% may lead to inaccurate results in coagulation testing. Patients having hematocrit values >55% require a special collection tube for coagulation studies. Please contact the laboratory at [phone] for redraw instructions. Performed By: #### P T, PTT #### [facility] [address] [place] [address] Serum or plasma high density lipoprotein (HDL) cholesterol measurementOrdered By: Karen Mays on 11-21-2023 Cholesterol in HDL [Mass/Vol] 29 mg/dL 23-92 [facility] Comment on above: HDL CHOL ATP-III CLA SSIFICATION Cardiovascular RiskHDL > or equal to 60 mg/dL LOWHDL < 40 mg/dL HIGH Serum or plasma total choles terol/high density lipoprotein (HDL) cholesterol mass ratOrdered By: Karen Mays on 11-21-2023 Cholesterol.total/Cho lesterol in HDL [Mass ratio] 3.3 {ratio} <5.0 [facility] Specific gravity Auto test s trip (U) [Rel density]Ordered By: Winter Norris on 11-21-2023 Specific gravity (U) [Rel density] 1.012 1.001-1.03 0 [facility] Squamous epithelial cells de tection in urine sediment by light microscopyOrdered By: Winter Norris on 11-21-2023 Epithelial cells.squamous LM Ql (Urine sed) None seen [HPF] 0-2 [facility] Triglyceride [Mass/volume] i n Serum or PlasmaOrdered By: Karen Mays on 11-21-2023 Triglyceride [Mass/Vol] 63 mg/dL 0-149 [facility] Comment on above: TRIG ATP III CLASSIF ICATIONTRIG less than 150 mg/dL NormalTRIG 150-199 mg/dL Borderline highTRIG 200-500 mg/dL High TRIG greater than 500 mg/dL Very highStandard traceable to the Center for Disease Conrtrol and Prevention (CDC) test method. Troponin I High Sensitivityo n 11-21-2023 Troponin I High Sensitivity 70.7 pg/mL Off scale high 0.0-15.0 [facility] Comment on above: Order Comment: DRAW ALL LABS AT 1015 PER CHARLES COLLINS Result Comment: Crit ical Result : Called to and read back by: DENNIS CAMPBELL at: 11/21/2023 11:29:54 by:SAMINA PERFORMED BY: [phone] PATHOLOGIST CUSTOMER ACQUISITION MANAGER SUNNI CH M.D. Performed By: #### B MP, CBC #### [facility] [address] [place] [address] [place] Troponin I High Sensitivity 75.8 pg/mL Off scale high 0.0-15.0 [facility] Comment on above: Order Comment: 0607 draw Result Comment: Crit ical Result : Called to and read back by: JEREMY ESTRADA at: 11/21/2023 07:30:30 by:[id number] PERFORMED BY: [place] [id number] PATHOLOGIST CUSTOMER ACQUISITION MANAGER SUNNI CH M.D. Performed By: #### H S TROP #### [place] [address] [place] Troponin I High Sensitivity 85.3 pg/mL Off scale high 0.0-15.0 [facility] Comment on above: Result Comment: Crit ical Result : Called to and read back by: ALBER ONEILL at: 11/21/2023 05:03:43 by:[id number] PERFORMED BY: [phone] PATHOLOGIST CUSTOMER ACQUISITION MANAGER SUNNI CH M.D. Performed By: #### H S TROP #### [address] Troponin I.cardiac [Mass/vol ume] in Serum or Plasma by Detection limit <= 0.01 ng/Ordered By: Karen Mays on 11-21-2023 Troponin I.cardiac DL <= 0.01 ng/mL [Mass/Vol] 70.7 pg/mL 0.0-15.0 [facility] Comment on above: Critical Result : Ca lled to and read back by: DENNIS CAMPBELL at: 11/21/2023 11:29:54 by:SAMINA Urine bacteria detection by automated methodOrdered By: Winter Norris on 11-21-2023 Bacteria Auto Ql (U) None seen None Seen [facility] Urine clarity by refractomet ry automatedOrdered By: Winter Norris on 11-21-2023 Clarity Refractometry automated (U) Clear Clear [facility] Urine glucose measurement by automated test strip (mass/volume)Ordered By: Winter Norris on 11-21-2023 Glucose Auto test strip (U) [Mass/Vol] >=1000 mg/dL Normal [facility] Urine hemoglobin detection b y automated test stripOrdered By: Winter Norris on 11-21-2023 Hemoglobin Auto test strip Ql (U) 1+ Negative [facility] Urine leukocyte esterase det ection by automated test stripOrdered By: Winter Norris on 11-21-2023 Leukocyte esterase Auto test strip Ql (U) Negative Negative [facility] Urobilinogen Auto test strip (U) [Mass/Vol]Ordered By: Winter Norris on 11-21-2023 Urobilinogen (U) [Mass/Vol] Normal mg/dL Normal [facility] XR chest 1V portableon 11-20 XR chest 1V portable [facility] [place] [address] XRay Report Signed Patient: Melissa Dubose MR#: [id number] [birth year] : 1960 Acct:[id number] Age/Sex: 63 / F ADM Date: 11/21/23 Loc: Room: [address] [place] [address] Type: ADM IN Attending Dr: Winter Norris MD Copies to: Winter Norris MD Ordering Provider: Winter Norris MD Date of Service: 11/21/23 XR/XR chest 1V portable: hypoxia XR chest 1V portable 11/21/2023 12:14 PM SIGNS AND SYMPTOMS: Hypoxia PROTOCOL: Frontal radiograph of the chest COMPARISON: 11/20/2023 FINDINGS: The trachea is midline. Atherosclerotic changes are present in the thoracic aorta. Sternotomy wires overlie the mediastinum. There is cardiomegaly. There is perihilar vascular prominence and interstitial prominence. The lung parenchyma is clear, otherwise. The bony thorax is intact. Anterior fusion hardware is noted in the lower cervical spine. XR/XR chest 1V portable IMPRESSION: Findings suggest congestive heart failure. Impression dictated by: Orville Oliver M.D.11/21/2023 5:01 PM Dictation Location: [place] [address] Transcribed By: [facility] 11/21/23 170 Dictated By: Orville Oliver II, MD 11/21/231657 Signed By: 11/21/23 170 Normal [facility] pH Auto test strip (U)Ordere d By: Winter Norris on 11-21-2023 pH (U) 5.5 [pH] 5.0-9.0 [facility] Office Visiton 04-05-2023 Follow-up visit [id number] Chung Dubose 1960 F Date Provider Department Center 04/05/2023 [id number] AGUAYO [facility] Family History Problem Relation Age of Onset Diabetes Mother Atrial fibrillation Mother Hyperlipidemia Mother Kidney disease Sister Heart attack Maternal Grandmother Stroke Maternal Grandmother Family Status - Relation Status Age at Mother Sister Maternal Grandmother Level of Service:43586 [place] OFFICE/OUTPATIENT ESTABLISHED MOD MDM 30-39 MIN Reason for Visit and Comments: Follow-up [685285] Normal [facility] CBC AUTO DIFFon 01-23-2023 BASO # 0.0 103/ul Normal 0.0-0.1 [facility] Comment on above: Performed By: #### I VINCE #### [facility] [address] [place] [address] [address] Chi Keith Basophils/100 WBC (Bld) 0.4 % Normal 0.2-2.0 [facility] Comment on above: Performed By: #### I VINCE #### [facility] [address] [place] [address] [address] Chi Keith EO # 0.1 103/ul Normal 0.0-0.7 [facility] Comment on above: Performed By: #### I VINCE #### [facility] [address] [place] [address] Dr. Chi Keith Eosinophils/100 WBC (Bld) 1.9 % Normal 0.9-7.0 [facility] Comment on above: Performed By: #### I VINCE #### [facility] [address] [place] [address] Dr. Chi Keith Erythrocyte distribution width (RBC) [Ratio] 13.9 % Normal 11.0-15.0 [facility] Comment on above: Performed By: #### I VINCE #### [facility] [address] [place] [address] Dr. Chi Keith Hematocrit (Bld) [Volume fraction] 40.5 % Normal 36.0-48.0 [facility] Comment on above: Performed By: #### I VINCE #### [facility] [address] [place] [address] Dr. Chi Keith Hemoglobin (Bld) [Mass/Vol] 12.9 g/dL Normal 12.0-16.0 [facility] Comment on above: Performed By: #### I VINCE #### [facility] [address] [place] [address] Dr. Chi Keith IG # 0.02 10e3/ul Normal 0.00-0.03 [facility] Comment on above: Performed By: #### I VINCE #### [facility] [address] [place] [address] Dr. Chi Keith IG % 0.3 % Normal 0.0-0.5 [facility] Comment on above: Performed By: #### I VINCE #### [facility] [address] [place] [address] Dr. Chi Keith LYMPH # 1.4 103/ul Normal 1.2-3.8 [facility] Comment on above: Performed By: #### I VINCE #### [facility] [address] [place] [address] Dr. Chi Keith Lymphocytes/100 WBC (Bld) 18.7 % Critically low 20.5-60.0 [facility] Comment on above: Performed By: #### I VINCE #### [facility] [address] [place] [address] Dr. Chi Keith MANUAL DIFF REQ NO Normal [facility] Comment on above: Performed By: #### I VINCE #### [facility] [address] [place] [address] [address] Chi Keith MCH (RBC) [Entitic mass] 29.7 pg Normal 26.7-34.0 [facility] Comment on above: Performed By: #### I VINCE #### [facility] [address] [place] [address] Dr. Chi Keith MCHC (RBC) [Mass/Vol] 31.9 g/dL Normal 29.9-35.2 [facility] Comment on above: Performed By: #### I VINCE #### [facility] [address] [place] [address] Dr. Chi Keith MCV (RBC) [Entitic vol] 93.1 fL Normal 81.0-99.0 [facility] Comment on above: Performed By: #### I VINCE #### [facility] [address] [place] [address] Dr. Chi Keith MONO # 0.5 103/ul Normal 0.3-0.8 [facility] Comment on above: Performed By: #### I VINCE #### [facility] [address] [place] [address] Dr. Chi Keith Monocytes/100 WBC (Bld) 6.4 % Normal 1.7-12.0 [facility] Comment on above: Performed By: #### I VINCE #### [facility] [address] [place] [address] Dr. Chi Keith NEUT # 5.4 103/ul Normal 1.4-6.5 [facility] Comment on above: Performed By: #### I VINCE #### [facility] [address] [place] [address] Dr. Chi Keith Neutrophils/100 WBC (Bld) 72.3 % Normal 43.0-75.0 [facility] Comment on above: Performed By: #### I VINCE #### [facility] [address] [place] [address] Dr. Chi Keith Platelet mean volume (Bld) [Entitic vol] 10.1 fL Normal 9.5-13.5 [facility] Comment on above: Performed By: #### I VINCE #### [facility] [address] [place] [address] [address] Chi Keith PLT 271 103/ul Normal 150-450 [facility] Comment on above: Performed By: #### I VINCE #### [facility] [address] [place] [address] Dr. Chi Keith RBC 4.35 106/ul Normal 4.20-5.40 [facility] Comment on above: Performed By: #### I VINCE #### [facility] [address] [place] [address] Dr. Chi Keith WBC 7.5 103/ul Normal 4.0-11.0 [facility] Comment on above: Performed By: #### I VINCE #### [facility] [address] [place] [address] Dr. Chi Keith FREE THYROXINE INDEX T7on FTI 3.94 Normal 1.30-4.50 [facility] Comment on above: Performed By: #### T 7, LIPID, TSH, CMP #### [facility] [address] [place] [address] Dr. Chi Keith T3U 31.0 % Normal 30.0-39.0 [facility] Comment on above: Performed By: #### T 7, LIPID, TSH, CMP #### [facility] [address] [place] [address] Dr. Chi Keith T4 [Mass/Vol] 12.70 ug/dL Normal 4.80-13.90 [facility] Comment on above: Performed By: #### T 7, LIPID, TSH, CMP #### [facility] [address] [place] [address] Dr. Chi Keith GLYCOHEMOGLOBIN A1Con 2022 ADA RECOMMENDATION SEE BELOW Normal [facility] Comment on above: Result Comment: ADA RECOMMENDED LIMIT 4.0 - 6.0 ADA THERAPEUTIC TARGET < 7.0 ACTION SUGGESTED > 7.0 Performed By: #### A 1C #### [facility] [address] [place] [address] Dr. Chi Keith Glucose [Mass/Vol] 120 mg/dL Normal [facility] Comment on above: Performed By: #### A 1C #### [facility] [address] [place] [address] [address] Chi Keith HbA1c (Bld) [Mass fraction] 5.8 % Normal 4.5-6.2 [facility] Comment on above: Performed By: #### A 1C #### [facility] [address] [place] [address] [address] Chi Keith IRONon 01-23-2023 Iron [Mass/Vol] 109.0 ug/dL Normal 50.0-170.0 [facility] Comment on above: Performed By: #### I VINCE #### [facility] [address] [place] [address] [address] Chi Keith LIPID PROFILEon 01-23-2023 CHOL-HDL RATIO NORM SEE BELOW Normal [facility] Comment on above: Result Comment: 3.3 - 4.4 LOW RISK 4.4 - 7.1 AVERAGE RISK 7.1 - 11.0 MODERATE RISK >11.0 HIGH RISK Performed By: #### T 7, LIPID, TSH, CMP #### [facility] [address] [place] [address] Dr. Chi Keith Cholesterol [Mass/Vol] 209 mg/dL Critically high <=200 [facility] Comment on above: Performed By: #### T 7, LIPID, TSH, CMP #### [facility] [address] [place] [address] Dr. Chi Keith Cholesterol in HDL [Mass/Vol] 41 mg/dL Normal 40-60 [facility] Comment on above: Performed By: #### T 7, LIPID, TSH, CMP #### [facility] [address] [place] [address] [address] Chi Keith Cholesterol in LDL [Mass/Vol] 135.0 mg/dL Normal [facility] Comment on above: Performed By: #### T 7, LIPID, TSH, CMP #### [facility] [address] [place] [address] Dr. Chi Keith Cholesterol.total/Cho lesterol in HDL [Mass ratio] 5.1 {ratio} Normal [facility] Comment on above: Performed By: #### T 7, LIPID, TSH, CMP #### [facility] [address] [place] [address] [address] Chi Keith HDL NORMAL > or = 60 mg/dl - LO W CARDIOVASCULAR RISK <40 mg/dl - HIGH CARDIOVASCULAR RISK Normal [facility] Comment on above: Performed By: #### T 7, LIPID, TSH, CMP #### [facility] [address] [place] [address] [address] Chi Keith LDL CALC NORMAL SEE BELOW Normal [facility] Comment on above: Result Comment: <100 mg/dl OPTIMAL 100 - 129 mg/dl NEAR OR ABOVE OPTIMAL 130 - 159 mg/dl BORDERLINE HIGH 160 - 189 mg/dl HIGH >190 mg/dl VERY HIGH Performed By: #### T 7, LIPID, TSH, CMP #### [facility] [address] [place] [address] [address] Chi Keith Triglyceride [Mass/Vol] 165 mg/dL Critically high <=150 [facility] Comment on above: Performed By: #### T 7, LIPID, TSH, CMP #### [facility] [address] [place] [address] [address] Chi Keith VLDL CALC 33.0 mg/dL Normal [facility] Comment on above: Performed By: #### T 7, LIPID, TSH, CMP #### [facility] [address] [place] [address] Dr. Chi Keith PROF 14(COMP METB)on 023 Albumin [Mass/Vol] 3.1 g/dL Critically low 3.4-5.0 [facility] Comment on above: Performed By: #### T 7, LIPID, TSH, CMP #### [facility] [address] [place] [address] Dr. Chi Keith Albumin/Globulin [Mass ratio] 0.8 {ratio} Normal [facility] Comment on above: Performed By: #### T 7, LIPID, TSH, CMP #### [facility] [address] [place] [address] [address] Chi Keith ALP [Catalytic activity/Vol] 86 U/L Normal 46-116 [facility] Comment on above: Performed By: #### T 7, LIPID, TSH, CMP #### [facility] [address] [place] [address] Dr. Chi Keith ALT [Catalytic activity/Vol] 35 U/L Normal 14-59 [facility] Comment on above: Performed By: #### T 7, LIPID, TSH, CMP #### [facility] [address] [place] [address] Dr. Chi Keith Anion gap [Moles/Vol] 13.9 mmol/L Normal Th [facility] Comment on above: Performed By: #### T 7, LIPID, TSH, CMP #### [facility] [address] [place] [address] Dr. Chi Keith AST [Catalytic activity/Vol] 29 U/L Normal 15-37 [facility] Comment on above: Performed By: #### T 7, LIPID, TSH, CMP #### [facility] [address] [place] [address] Dr. Chi Keith Bilirubin [Mass/Vol] 0.6 mg/dL Normal 0.2-1.0 [facility] Comment on above: Performed By: #### T 7, LIPID, TSH, CMP #### [facility] [address] [place] [address] Dr. Chi Keith Calcium [Mass/Vol] 9.7 mg/dL Normal 8.5-10.1 [facility] Comment on above: Performed By: #### T 7, LIPID, TSH, CMP #### [facility] [address] [place] [address] Dr. Chi Keith Chloride [Moles/Vol] 106 mmol/L Normal 98-107 [facility] Comment on above: Performed By: #### T 7, LIPID, TSH, CMP #### [facility] [address] [place] [address] Dr. Chi Keith CO2 [Moles/Vol] 28.1 mmol/L Normal 21.0-32.0 [facility] Comment on above: Performed By: #### T 7, LIPID, TSH, CMP #### [facility] [address] [place] [address] Dr. Chi Keith Creatinine [Mass/Vol] 1.33 mg/dL Critically high 0.55-1.02 [facility] Comment on above: Performed By: #### T 7, LIPID, TSH, CMP #### [facility] [address] [place] [address] Dr. Chi Keith EGFR-AF CUBAN 49 mL/min/1.73m2 Critically low >=60 [facility] Comment on above: Performed By: #### T 7, LIPID, TSH, CMP #### [facility] [address] [place] [address] Dr. Chi Keith EGFR-NON AF CUBAN 41 mL/min/1.73m2 Critically low >=60 [facility] Comment on above: Performed By: #### T 7, LIPID, TSH, CMP #### [facility] [address] [place] [address] Dr. Chi Keith Globulin (S) [Mass/Vol] 3.8 g/dL Normal [facility] Comment on above: Performed By: #### T 7, LIPID, TSH, CMP #### [facility] [address] [place] [address] Dr. Chi Keith Glucose [Mass/Vol] 116 mg/dL Critically high 74-106 [facility] Comment on above: Performed By: #### T 7, LIPID, TSH, CMP #### [facility] [address] [place] [address] Dr. Chi Keith Potassium [Moles/Vol] 4.0 mmol/L Normal 3.5-5.1 [facility] Comment on above: Performed By: #### T 7, LIPID, TSH, CMP #### [facility] [address] [place] [address] Dr. Chi Keith Protein [Mass/Vol] 6.9 g/dL Normal 6.4-8.2 [facility] Comment on above: Performed By: #### T 7, LIPID, TSH, CMP #### [facility] [address] [place] [address] Dr. Chi Keith Sodium [Moles/Vol] 144 mmol/L Normal 136-145 [facility] Comment on above: Performed By: #### T 7, LIPID, TSH, CMP #### [facility] [address] [address] [address] Chi Keith Urea nitrogen [Mass/Vol] 20.0 mg/dL Critically high 7.0-18.0 [facility] Comment on above: Performed By: #### T 7, LIPID, TSH, CMP #### [facility] [address] [address] [address] Chi Keith Urea nitrogen/Creatinine [Mass ratio] 15.0 mg/mg Normal [facility] Comment on above: Performed By: #### T 7, LIPID, TSH, CMP #### [facility] [address] [address] [address] Chi Keith TSHon 01-23-2023 TSH 0.995 uIU/mL Normal 0.358-3.74 0 [facility] Comment on above: Performed By: #### T 7, LIPID, TSH, CMP #### [facility] [address] [address] [address] Chi Keith Covid-19 PCR (CVDTB)on SARS-CoV-2 (COVID-19) RNA ALEXANDREA+probe Ql (Unsp spec) Detected Critically abnormal NOT DETECTED [facility] Comment on above: Result Comment: This test is not yet approved or cleared by the [place] FDA. When there are no FDA-approved or cleared tests available, and other criteria are met, FDA can make tests available under an emergency access mechanism called an Emergency Use Authorization (EUA). The EUA for this test is supported by the Clinical Document Improvement Educator of Health and Human Service's declaration that circumstances exist to justify the emergency use of in vitro diagnostics for the detection and/or diagnosis of the virus that causes COVID-19. This EUA will remain in effect for the duration of the COVID-19 declaration justifying emergency of IVDs, unless it is terminated or revoked by the FDA (after which the test may no longer be used). Performed By: #### I VINCE #### [facility] [address] [address] [address] Chi Keith INFLUENZA A AND B AGon 08-13 INFLUENZA A AG Negative Normal NEGATIVE SEE COMMENT [facility] Comment on above: Performed By: #### I VINCE #### [facility] [address] [place] [address] Dr. Chi Keith INFLUENZA B AG Negative Normal NEGATIVE SEE COMMENT [facility] Comment on above: Performed By: #### I VINCE #### [facility] [address] [place] [address] Dr. Chi Keith INTERNAL CONTROLS Within Normal Limits Normal Wi thin Normal Limits [facility] Comment on above: Performed By: #### I VINCE #### [facility] [address] [place] [address] Dr. Chi Keith CARDIAC ORV[place] ADMITon 022 CK [Catalytic activity/Vol] 34 U/L Normal 26-192 [facility] Comment on above: Performed By: #### I VINCE #### [facility] [address] [place] [address] Dr. Chi Keith CK.MB [Mass/Vol] 0.71 ng/mL Normal <=3.60 [facility] Comment on above: Performed By: #### I VINCE #### [facility] [address] [place] [address] Dr. Chi Keith HSTROP 11.6 pg/mL Normal 4.0-51.3 [facility] Comment on above: Result Comment: CUT- OFF POINTS HAVE BEEN ESTABLISHED BASED ON THE FOURTH UNIVERSAL DEFINITIONS OF MYOCARDIAL INFARCTION. THE UPPER REFERENCE LIMIT (URL) OF TROPONIN, DEFINED THE 99TH PERCENTILE OF cTnI DISTRIBUTION IN A REFERENCE POPULATION, HAS BEEN CONFIRMED THE DECISION THRESHOLD FOR VA DIAGNOSIS. Performed By: #### I VINCE #### [facility] [address] [place] [address] Dr. Chi Keith FAUSTO 57 ng/mL Normal 9-82 [facility] Comment on above: Performed By: #### I VINCE #### [facility] [address] [place] [address] Dr. Chi Keith CBC AUTO DIFFon 04-09-2022 BASO # 0.0 103/ul Normal 0.0-0.1 [facility] Comment on above: Performed By: #### I VINCE #### [facility] [address] [address] [address] Chi Keith Basophils/100 WBC (Bld) 0.4 % Normal 0.2-2.0 [facility] Comment on above: Performed By: #### I VINCE #### [facility] [address] [place] [address] Dr. Chi Keith EO # 0.1 103/ul Normal 0.0-0.7 [facility] Comment on above: Performed By: #### I VINCE #### [facility] [address] [place] [address] Dr. Chi Keith Eosinophils/100 WBC (Bld) 0.7 % Critically low 0.9-7.0 [facility] Comment on above: Performed By: #### I VINCE #### [facility] [address] [place] [address] Dr. Chi Keith Erythrocyte distribution width (RBC) [Ratio] 14.5 % Normal 11.0-15.0 [facility] Comment on above: Performed By: #### I VINCE #### [facility] [address] [place] [address] Dr. Chi Keith Hematocrit (Bld) [Volume fraction] 42.1 % Normal 36.0-48.0 [facility] Comment on above: Performed By: #### I VINCE #### [facility] [address] [place] [address] Dr. Chi Keith Hemoglobin (Bld) [Mass/Vol] 13.5 g/dL Normal 12.0-16.0 [facility] Comment on above: Performed By: #### I VINCE #### [facility] [address] [place] [address] Dr. Chi Keith IG # 0.03 10e3/ul Normal 0.00-0.03 [facility] Comment on above: Performed By: #### I VINCE #### [facility] [address] [place] [address] Dr. Chi Keith IG % 0.3 % Normal 0.0-0.5 [facility] Comment on above: Performed By: #### I VINCE #### [facility] [address] [place] [address] Dr. Chi Keith LYMPH # 1.8 103/ul Normal 1.2-3.8 [facility] Comment on above: Performed By: #### I VINCE #### [facility] [address] [place] [address] Dr. Chi Keith Lymphocytes/100 WBC (Bld) 18.3 % Critically low 20.5-60.0 [facility] Comment on above: Performed By: #### I VINCE #### [facility] [address] [place] [address] Dr. Chi Keith MANUAL DIFF REQ NO Normal [facility] Comment on above: Performed By: #### I VINCE #### [facility] [address] [place] [address] Dr. Chi Keith MCH (RBC) [Entitic mass] 30.5 pg Normal 26.7-34.0 [facility] Comment on above: Performed By: #### I VINCE #### [facility] [address] [place] [address] Dr. Chi Keith MCHC (RBC) [Mass/Vol] 32.1 g/dL Normal 29.9-35.2 [facility] Comment on above: Performed By: #### I VINCE #### [facility] [address] [place] [address] Dr. Chi Keith MCV (RBC) [Entitic vol] 95.2 fL Normal 81.0-99.0 [facility] Comment on above: Performed By: #### I VINCE #### [facility] [address] [place] [address] Dr. Chi Keith MONO # 0.6 103/ul Normal 0.3-0.8 [facility] Comment on above: Performed By: #### I VINCE #### [facility] [address] [place] [address] Dr. Chi Keith Monocytes/100 WBC (Bld) 6.3 % Normal 1.7-12.0 [facility] Comment on above: Performed By: #### I VINCE #### [facility] [address] [place] [address] Dr. Chi Keith NEUT # 7.5 103/ul Critically high 1.4-6.5 [facility] Comment on above: Performed By: #### I VINCE #### [facility] [address] [address] [address] Chi Keith Neutrophils/100 WBC (Bld) 74.0 % Normal 43.0-75.0 [facility] Comment on above: Performed By: #### I VINCE #### [facility] [address] [address] [address] Chi Keith Platelet mean volume (Bld) [Entitic vol] 9.3 fL Critically low 9.5-13.5 [facility] Comment on above: Performed By: #### I VINCE #### [facility] [address] [place] [address] Dr. Chi Keith PLT 316 103/ul Normal 150-450 [facility] Comment on above: Performed By: #### I VINCE #### [facility] [address] [address] [address] Chi Keith RBC 4.42 106/ul Normal 4.20-5.40 [facility] Comment on above: Performed By: #### I VINCE #### [facility] [address] [place] [address] Dr. Chi Keith WBC 10.1 103/ul Normal 4.0-11.0 [facility] Comment on above: Performed By: #### I VINCE #### [facility] [address] [place] [address] FACIAL BONES WO CONon CT FACIAL BONES WO CON EXAMINATION: CT FACIAL BONES WO CON HISTORY: UNSPECIFIED INJURY OF HEAD, INITIAL ENCOUNTER ; fell 5 days ago, headache, right facial bruising COMPARISON: No relevant comparison available. TECHNIQUE: Axial, Coronal, and Sagittal CT images created without IV contrast. Dose reduction techniques were achieved by using automated exposure control and/or adjustment of mA and/or kV according to patient size and/or use of iterative reconstruction technique. FINDINGS: FACIAL BONES: No bony lesion or fracture. SINUSES: Mucocele or retention cysts within the left sphenoid sinus. NASAL FOSSA: No mass, fracture, or significant septal deviation. SKULL BASE: No mass or bone destruction. ORBITS: No visible mass, hematoma, edema or fracture. OTHER: Mild subcutaneous edema or bruising within right cheek and periorbital subcutaneous fat. IMPRESSION: 1. No acute bone abnormality. 2. Right periorbital and cheek mild subcutaneous bruising/edema. 3. Mild chronic sinusitis. Electronically authenticated by: SUNIL THOMPSON Date: 2022-04-09 15:58 Normal [facility] CT HEAD WO CONon 04-09-2022 CT HEAD WO CON EXAMINATION: CT HEAD WO CON HISTORY: HEADACHE , right facial bruising; fell 5 days ago COMPARISON: No relevant comparison available. TECHNIQUE: Axial CT images were obtained without IV contrast. Dose reduction techniques were achieved by using automated exposure control and/or adjustment of mA and/or kV according to patient size and/or use of iterative reconstruction technique. FINDINGS: BRAIN: 4 x 2 x 2 mm focal hyperdensity within posterior medial right basal ganglia favoring a calcification. No edema, hemorrhage, mass, acute infarction, or inappropriate atrophy. CSF SPACES: No hydrocephalus, subarachnoid hemorrhage, or mass. Appropriate for age. SKULL: No fracture, mass, or other significant visible lesion. SINUSES: Prominent mucocele/retention cyst within the left sphenoid sinus. ORBITS: No appreciable abnormality on the limited views. OTHER: Negative IMPRESSION: 1. No appreciable acute hemorrhage, edema, or mass effect. 2. Focal hyperdensity within right basal ganglia favors calcification since it is quite dense and the patient's injury occurred 5 days ago and would be unlikely to remain this small and dense. 3. Chronic sinusitis. 4. No fracture of the calvarium or scalp hematoma. Electronically authenticated by: SUNIL THOMPSON Date: 2022-04-09 15:51 Normal [facility] ER URINE PROFILEon 2 Bilirubin Ql (U) MODERATE Abnormal NEGATIVE [facility] Comment on above: Performed By: #### I VINCE #### [facility] [address] [place] [address] Dr. Chi Keith Clarity (U) CLEAR Normal CLEAR [facility] Comment on above: Performed By: #### I VINCE #### [facility] [address] [address] [address] Chi Keith Color (U) DK. YELLOW Normal YELLOW [facility] Comment on above: Performed By: #### I VINCE #### [facility] [address] [place] [address] Dr. Chi BARRY A micrscopic examina tion will be performed if indicated. Normal [facility] Comment on above: Performed By: #### I VINCE #### [facility] [address] [place] [address] Dr. Chi Keith Glucose Ql (U) Negative Normal NEGATIVE [facility] Comment on above: Performed By: #### I VINCE #### [facility] [address] [place] [address] Dr. Chi Keith Hemoglobin Ql (U) TRACE-INTACT Abnormal NEGATIVE [facility] Comment on above: Performed By: #### I VINCE #### [facility] [address] [place] [address] Dr. Chi Keith Ketones Ql (U) 15 mg/dl Abnormal NEGATIVE [facility] Comment on above: Performed By: #### I VINCE #### [facility] [address] [place] [address] Dr. Chi Keith LEUKOCYTES Negative Normal NEGATIVE [facility] Comment on above: Performed By: #### I VINCE #### [facility] [address] [place] [address] Dr. Chi Keith Nitrite Ql (U) Negative Normal NEGATIVE [facility] Comment on above: Performed By: #### I VINCE #### [facility] [address] [place] [address] Dr. Chi Keith pH (U) 5.5 [pH] Normal 5-9 [facility] Comment on above: Performed By: #### I VINCE #### [facility] [address] [place] [address] Dr. Chi Keith Protein (U) [Mass/Vol] 30 mg/dL Abnormal NEGATIVE/ TRACE [facility] Comment on above: Performed By: #### I VINCE #### [facility] [address] [place] [address] Dr. Chi Keith SPEC GRAVITY >=1.030 Abnormal 1.005-<=1. 025 [facility] Comment on above: Performed By: #### I VINCE #### [facility] [address] [place] [address] Dr. Chi Keith UR MICRO IND INDICATED Normal [facility] Comment on above: Performed By: #### I VINCE #### [facility] [address] [place] [address] Dr. Chi Keith Urobilinogen Qn (U) 1.0 {Mani'U}/dL Normal 0.2 - 1. 0 [facility] Comment on above: Performed By: #### I VINCE #### [facility] [address] [place] [address] Dr. Chi Keith PROF 14(COMP METB)on 022 Albumin [Mass/Vol] 3.3 g/dL Critically low 3.4-5.0 [facility] Comment on above: Performed By: #### C MELISSA CMP, TSH #### [facility] [address] [place] [address] Dr. Chi Keith Albumin/Globulin [Mass ratio] 0.9 {ratio} Normal [facility] Comment on above: Performed By: #### C THERESE TORRES, TSH #### [facility] [address] [place] [address] Dr. Chi Keith ALP [Catalytic activity/Vol] 87 U/L Normal 46-116 [facility] Comment on above: Performed By: #### C MADVictor Hugo CMP, TSH #### [facility] [address] [place] [address] Dr. Chi Keith ALT [Catalytic activity/Vol] 34 U/L Normal 14-59 [facility] Comment on above: Performed By: #### C MELISSA CMP, TSH #### [facility] [address] [place] [address] Dr. Chi Keith Anion gap [Moles/Vol] 12.2 mmol/L Normal [facility] Comment on above: Performed By: #### C MADM CMP, TSH #### [facility] [address] [place] [address] Dr. Chi Keith AST [Catalytic activity/Vol] 16 U/L Normal 15-37 [facility] Comment on above: Performed By: #### C THERESE TORRES, TSH #### [facility] [address] [address] [address] Chi Keith Bilirubin [Mass/Vol] 0.6 mg/dL Normal 0.2-1.0 [facility] Comment on above: Performed By: #### C THERESE TORRES, TSH #### [facility] [address] [address] [address] Chi Keith Calcium [Mass/Vol] 9.8 mg/dL Normal 8.5-10.1 [facility] Comment on above: Performed By: #### C THERESE TORRES, TSH #### [facility] [address] [place] [address] Dr. Chi Keith Chloride [Moles/Vol] 106 mmol/L Normal 98-107 [facility] Comment on above: Performed By: #### C THERESE TORRES, TSH #### [facility] [address] [place] [address] Dr. Chi Keith CO2 [Moles/Vol] 27.9 mmol/L Normal 21.0-32.0 [facility] Comment on above: Performed By: #### C THERESE TORRES, TSH #### [facility] [address] [place] [address] Dr. Chi Keith Creatinine [Mass/Vol] 1.13 mg/dL Critically high 0.55-1.02 [facility] Comment on above: Performed By: #### C THERESE TORRSE, TSH #### [facility] [address] [place] [address] Dr. Chi Keith EGFR-AF CUBAN =60 Normal >=60 [facility] Comment on above: Performed By: #### C THERESE TORRES, TSH #### [facility] [address] [place] [address] Dr. Chi Keith EGFR-NON AF CUBAN 49 mL/min/1.73m2 Critically low >=60 [facility] Comment on above: Performed By: #### C THERESE TORRES, TSH #### [facility] [facility] [address] [address] [address] Chi Keith Globulin (S) [Mass/Vol] 3.8 g/dL Normal [facility] Comment on above: Performed By: #### C MADM, CMP, TSH #### [facility] [address] [address] [address] Chi Keith Glucose [Mass/Vol] 115 mg/dL Critically high 74-106 [facility] Comment on above: Performed By: #### C MADM, CMP, TSH #### [facility] [address] [address] [address] Chi Keith Potassium [Moles/Vol] 4.1 mmol/L Normal 3.5-5.1 [facility] Comment on above: Performed By: #### C MADM, CMP, TSH #### [facility] [address] [place] [address] Dr. Chi Keith Protein [Mass/Vol] 7.1 g/dL Normal 6.4-8.2 [facility] Comment on above: Performed By: #### C MADM, CMP, TSH #### [facility] [address] [address] [address] Chi Keith Sodium [Moles/Vol] 142 mmol/L Normal 136-145 [facility] Comment on above: Performed By: #### C MADM, CMP, TSH #### [facility] [address] [address] [address] Chi Keith Urea nitrogen [Mass/Vol] 21.0 mg/dL Critically high 7.0-18.0 [facility] Comment on above: Performed By: #### C MADM, CMP, TSH #### [facility] [address] [place] [address] Dr. Chi Keith Urea nitrogen/Creatinine [Mass ratio] 18.6 mg/mg Normal [facility] Comment on above: Performed By: #### C MADM, CMP, TSH #### [facility] [address] [address] [address] Cih Keith PROTIMEon 04-09-2022 INR Coag (PPP) [Relative time] 0.97 {INR} Normal [facility] Comment on above: Performed By: #### I VINCE #### [facility] [address] [place] [address] Dr. Chi Keith INR GUIDELINES SEE BELOW Normal [facility] Comment on above: Result Comment: LISA RED INR: 2.0 - 3.0 CONDITIONS NOT LISTED BELOW 2.5 - 3.5 FOR PROSTHETIC HEART VALVE REPLACEMENT 2.5 - 3.5 RECURRENT THROMBOSIS Performed By: #### I VINCE #### [facility] [address] [place] [address] Dr. Chi Keith PT Coag (PPP) [Time] 10.5 s Normal 9.0-11.6 [facility] Comment on above: Performed By: #### I VINCE #### [facility] [address] [place] [address] Dr. Chi Keith PTTon 04-09-2022 aPTT Coag (Bld) [Time] 23.1 s Normal 22.3-36.2 [facility] Comment on above: Performed By: #### I VINCE #### [facility] [address] [place] [address] Dr. Chi Keith TSHon 04-09-2022 TSH 0.511 uIU/mL Normal 0.358-3.74 0 [facility] Comment on above: Performed By: #### C MADM, CMP, TSH #### [facility] [address] [place] [address] Dr. Chi Keith URINE MICROSCOPIC ONLYon BACTERIA TRACE Abnormal NONE SEEN [facility] Comment on above: Performed By: #### I VINCE #### [facility] [address] [place] [address] Dr. Chi Keith Bacteria identified Cx Nom (U) NOT INDICATED Normal [facility] Comment on above: Performed By: #### I VINCE #### [facility] [address] [place] [address] Dr. Chi Keith CAST SEEN Abnormal NONE SEEN [facility] Comment on above: Performed By: #### I VINCE #### [facility] [address] [address] [address] Chi Keith Crystals LM Nom (Urine sed) NONE SEEN Normal NONE SEEN [facility] Comment on above: Performed By: #### I VINCE #### [facility] [address] [address] [address] Chi Keith Epithelial cells LM Ql (Urine sed) FEW Abnormal NONE SEEN /RARE [facility] Comment on above: Performed By: #### I VINCE #### [facility] [address] [address] [address] Chi Keith HYALINE CAST RARE Normal [facility] Comment on above: Performed By: #### I VINCE #### [facility] [address] [address] [address] Chi Keith MUCOUS SMALL Abnormal NONE SEEN [facility] Comment on above: Performed By: #### I VINCE #### [facility] [address] [address] [address] Chi Keith RBC 2-5 Abnormal 0-2 [facility] Comment on above: Performed By: #### I VINCE #### [facility] [address] [address] [address] Chi Keith WBC 0-2 Abnormal NONE SEEN [facility] Comment on above: Performed By: #### I VINCE #### [facility] [address] [place] [address] Dr. Chi Keith Cardiovascular Lab Reporton 05-11-2017 Cardiovascular Lab Report [facility] Patient Name: Melissa Dubose MR #: [id number] Center Physician: Justine Grimes M.D.Department of Service Date: 05/10/2017Medicine Birthdate: [birth year][facility] [address]G[facility] Fax Cardiovascular Laboratory ReportINDICATION:Melissa Dubose is a 56-year-old lady known to have coronary disease, statuspost bypass surgery in the past. She was evaluated in Cardiology Clinicbecause of recent episodes of syncope. She also described chest pain. Astress test showed no evidence of ischemia, but a low ejection fraction of46%. Because of that, she is referred for cardiac catheterization.PROCEDURE:1. Bilateral selective coronary angiography.2. Graft angiography.3. Limited right femoral angiography.METHODS:Cole irizarry was explained to the patient with risks and benefits. She signedinformed consent. She was brought to labor delivery specialist in a fasting state. Theright groin area was prepped and draped in usual fashion. Usingmicropuncture technique, the right common femoral artery was accessed. Theinner cannula was advanced. Limited right femoral angiography wasperformed followed by upsizing to a 6-Somali x 11 cm sheath. Bilateralselective renal angiography was then performed using 6-Somali JL4 and KV3ceofjvvxiy catheters. The 6-Somali JR4 diagnostic catheter was used toselectively engage the saphenous venous graft to the OM and the radialgraft to the PDA. Angiography was performed. Catheter was exchanged to a6-Somali CYNTHIA catheter, which was used to selectively engage the leftsubclavian artery, and then selectively engage the left internal mammaryartery. Angiography was performed. Catheter was removed. The procedurewas concluded. The patient tolerated the procedure well. The accesssheath was removed and manual compression applied for hemostasis. She willbe observed for 6 hours and then discharged to home.TOTAL FLUORO TIME: 5.13 minutes.TOTAL AIR KERMA: 972 mGy.TOTAL CONTRAST VOLUME: 65 mL.HEMODYNAMICS:AO 157/92, mean 119.CORONARY ANGIOGRAPHY:This is a right dominant circulation.Left main: This arises from left coronary cusp. It bifurcates into leftanterior descending and circumflex vessels. The left main is free ofdisease.Left anterior descending: This has mild disease in its proximal segment.Right after a large septal branch, there is 90% tandem stenoses in the midsegment. The distal LAD is seen filling via a widely patent BALLESTEROS graft.Circumflex vessel: This is large and non-dominant. It gives rise to randee large second obtuse marginal branch, which itself has a 90% proximalstenosis. This obtuse marginal branch has a widely patent saphenous venousgraft.Right coronary artery: This arises from the right coronary cusp. It is alarge and dominant vessel. It has a 90% proximal and 100% mid segmentstenosis. Distally the PDA and PLV branches are seen to fill via a patentradial graft to the PDA.GRAFT ANGIOGRAPHY:BALLESTEROS to LAD: This graft is widely patent.SVG to OM: This graft is widely patent.Radial graft to PDA: This graft is widely patent.LIMITED RIGHT FEMORAL ANGIOGRAPHY:This showed access to be in the right common femoral artery with noobstructive lesions noted in the femoral artery or its proximal branches.SUMMARY OF THE FINDINGS:1. Severe 3-vessel coronary artery disease.2. Patent 3/3 bypass grafts.RECOMMENDATIONS:Medic al therapy and follow up in Cardiology Clinic.Electronically Signed by:Justine Grimes M.D. 06/01/2017 08:16 A Justine Grimes M.D.Date Dict: 05/10/2017/01:01 P/Justine Grimes M.D.Date Trans: 05/11/2017 09:53 A/argentinaoDN_[id number]: Madison Mccormack M.D. [address], [facility] [address] [facility] Vital Signs Date Time Vital Sign Value Performing Clinician Viviane headley 11-25-2023 11:01-0400 Body temperature 97.7 [degF] MD Madison Mccormack Work Phone: [facility] 11-25-2023 11:01-0400 Diastolic blood pressure 65 mm[Hg] MD Madison Mccormack Work Phone: [facility] 11-25-2023 11:01-0400 Heart rate 90 /min MD Madison Mccormack Work Phone: [facility] 11-25-2023 11:01-0400 Respiratory rate 16 /min MD Madison Mccormack Work Phone: [facility] 11-25-2023 11:01-0400 SaO2% (BldA) [Mass fraction] 97 % MD Madison Mccormack Work Phone: [facility] 11-25-2023 11:01-0400 Systolic blood pressure 108 mm[Hg] MD Madison Mccormack Work Phone: [facility] 11-25-2023 06:00-0400 Body weight 103 kg MD Madison Mccormack Work Phone: [facility] 11-24-2023 20:00-0400 Inhaled oxygen flow rate 2 L/min MD Madison Mccormack Work Phone: [facility] 11-21-2023 14:58-0400 Body height 177.8 cm MD Madison Mccormack Work Phone: [facility] Encounters Encounter Date Encounter Type Care Provider Facility Start: 02-19-2024 End: 02-19-2024 ambulatory [facility] Start: 01-17-[address] [facility] Start: 01-17-2024 End: 01-17-2024 ambulatory [facility] Start: 12-27-[address] [facility] Start: 12-11-2023 End: 12-11-2023 ambulatory [facility] Start: 11-21-2023 End: 11-25-2023 Evaluation and management of inpatient Jaimie Mischler Facility:[facility] Start: 11-21-2023 Non-patient / Non-visit MD Umesh Mccormack Work Phone: [facility] Work Phone: Start: 11-21-2023 End: 11-25-2023 Evaluation and management of inpatient MD Madison Mccormack Work Phone: [facility] Work Phone: Start: 04-05-2023 End: 04-05-2023 ambulatory [facility] Start: 01-23-2023 End: 01-24-[address] MADISON MCCORMACK . Facility: Start: 08-13-2022 End: 08-13-[address] MADISON MCCORMACK . Facility: Start: 04-09-2022 End: 04-09-2022 ambulatory MYKE CANTU . Facility: Start: 05-10-2017 End: 05-11-2017 Ambulatory PROVIDER UNKNOWN Facility:[facility] Start: 05-07-2017 End: 05-08-2017 Ambulatory DEFAULT PHYSICIAN Facility:[facility] Procedures Date Procedure Procedure Detail Performing Clinician Start: 11-23-2023 Plain chest X-ray MD Gurrola Work Phone: Start: 11-22-2023 [facility] Angio w/grafts MD Madison Mccormack Work Phone: Start: 11-21-2023 Plain chest X-ray MD Gurrola Work Phone: History of coronary artery bypass grafting S/P CABG (coronary artery bypass graft) MD Madison Mccormack Work Phone: Plan of Treatment Date Care Activity Detail Author Start: 11-25-2023 [facility] Start: 11-21-2023 Hospital admission [facility] Start: 11-21-2023 Referral to Ingot [facility] Patient Education Atrial Fibrill ation (DC) Heart Failure, Adult (DC) Flu, Adult (DC) Going Home on Blood Thinners [facility] Work Phone: Patient referral [facility] Work Phone: Payers Date Payer Category Payer Self-pay 1960 Unknown [id number] 1960 Unknown [id number] 1960 Unknown [id number] 1957 Medicare [id number] Medicare [id number] Unknown Unknown MMO [id number] Unknown [id number] Social History Date Type Detail Facility Start: 11-22-2023 Tobacco smoking stat us NHIS Ex-smoker (finding) [facility] Start: 1960 Sex Assigned At Female F [facility] Goals Date Patient Goal Desired Activity /State Functional Status Date Assessment Result Facility 11-25-2023 Functional status Patient at Baseline [facility] Work Phone: Mental Status Date Assessment Result Facility 11-25-2023 Cognitive function Cognitive Sta tus Patient at Baseline [facility] Work Phone: Clinical Notes 04-05-2023 to 02-19-2024 Note Date & Type Note Facility 02-19-2024 Note [facility] Note Reason for cardiology consult: Patient here for follow up MALGORZATA/DCCV on 01/17/[address] Ria Schneider. Chief Complaint: Itching HPI: Melissa Dubose is a 63 y.o. female with history of CAD, s/p CABG and non-STEMI 2016, history of hypertension, A-fib Recently she was admitted to an outside hospital with worsening shortness of breath and influenza A. She was found to have acute heart failure with an ejection fraction around 25% and elevated cardiac enzymes as well as new onset atrial fibrillation with rapid ventricular response. She underwent cardiac catheterization at [facility] which showed patent bypass grafts. She was started on GDMT for heart failure as well as anticoagulation therapy with Eliquis. She then developed lower GI bleeding and possible colitis. She also developed UTI. Anticoagulation therapy was interrupted but then resumed. On 01/17/2024 she underwent MALGORZATA with cardioversion and she felt immediately better after she was back in sinus rhythm. Since the cardioversion she has been doing very well. She denies any palpitation. She denies chest pain or shortness of breath at rest or with exertion. She denies orthopnea or paroxysmal nocturnal dyspnea or dizziness. She admits little ankles edema. The patient states that she has been losing weight gradually since she was on Ozempic and she continues to lose despite stopping it. She used to be on Lasix however it was discontinued due to elevated renal function. She reports itching all over since she was started on Jardiance however her family physician medication and it is much better now. She denies any skin rash ROS: All systems were reviewed and they were within normal limits except for any positive findings noted above in the history Past Medical History She has a past medical history of Arteriosclerosis of coronary artery bypass graft (06/28/2016), History of cardiac cath (05/10/2017), Hypertension, Myocardial infarct (CMS/HCC), and Tachycardia. Surgical History She has a past surgical history that includes Coronary artery bypass graft; Back surgery; Tonsilectomy, adenoidectomy, bilateral myringotomy and tubes; and Cardiac catheterization. Social History She reports that she has quit smoking. Her smoking use included cigarettes. She has never used smokeless tobacco. She reports that she does not currently use alcohol. She reports that she does not use drugs. Family History Family History Problem Relation Name Age of Onset Diabetes Mother Atrial fibrillation Mother Hyperlipidemia Mother Kidney disease Sister Heart attack Maternal Grandmother Stroke Maternal Grandmother Allergies Oxycodone-acetaminophen Medications Current Outpatient Medications: atorvastatin (Lipitor) 40 mg tablet, Take 40 mg by mouth in the morning., Disp: , Rfl: Eliquis 5 mg tablet, Take 5 mg by mouth in the morning and at bedtime., Disp: , Rfl: ezetimibe (Zetia) 10 mg tablet, Take 1 tablet (10 mg) by mouth in the morning., Disp: 90 tablet, Rfl: 3 Jardiance 10 mg, Take 10 mg by mouth in the morning., Disp: , Rfl: metoprolol succinate XL (Toprol-XL) 50 mg 24 hr tablet, Take 1 tablet (50 mg) by mouth in the morning. Do not crush or chew., Disp: 90 tablet, Rfl: 3 pantoprazole (ProtoNix) 40 mg EC tablet, take 1 tablet by mouth once daily, Disp: 90 tablet, Rfl: 0 sacubitril-valsartan (Entresto) 97-103 mg tablet, Take 1 tablet by mouth in the morning and at bedtime., Disp: 180 tablet, Rfl: 3 tiZANidine (Zanaflex) 4 mg tablet, 2 tablets Orally at bedtime for 30 days, Disp: , Rfl: Last Recorded Vitals Visit Vitals Ht 1.778 m (5' 10 ) BMI 38.74 kg/m??? OB Status Postmenopausal Smoking Status Former BSA 2.45 m??? Physical Examination: GENERAL: alert and oriented x3, well developed, in no acute distress. HEAD: atraumatic, normocephalic. EYES: PREETI, EOMI. NECK: trachea midline, no JVD present, no carotid bruits present. CARDIAC: S1, S2 present. RRR. No murmur, rubs, or gallops. RESPIRATORY: CTAB, no increased effort of breathing, no rales, rhonchi, or wheezing. ABDOMEN: soft, nontender, nondistended. EXTREMITIES: Trace to mild edema of the ankles, no rash/skin discoloration present. NEURO: strength/sensation equal and symmetric in bilateral upper and lower extremities. PSYCH: appropriate mood, affect, and judgement. Labs: 01/10/2024 Sodium 140, potassium 3.6, glucose 198, BUN 13 creatinine 1.04, calcium 9.5 White blood count 7.6, hemoglobin 12, hematocrit 39.5, platelets 250 12/24/2023 Sodium 138, potassium 4.5, glucose 159, BUN 19, creatinine 1.3, GFR 50 Last Images: EKG today 02/19/2024 showed normal sinus rhythm, heart rate 69 bpm with 1 PAC, right axis deviation, incomplete left bundle branch block with ST-T changes in anterolateral leads Transesophageal echo and cardioversion 01/17/2024 Left Ventricle: The left ventricle is mildly enlarged. Global left v (more content not included)... [facility] 01-17-2024 Note ------ Attestation signed by Ria Schneider MD at 01/22/2024 12:42 PM By using the attestations below, the signing clinician agrees that I have read and verify that the documentation has been personally reviewed by me and ensure that the documentation accurately reflects the encounter. GC: I personally saw this patient on the day of the encounter, performed the back portion(s) of the service and participated in the management and confirm the resident's documentation. Please note there may be an additional personal documentation from me. ------ Cardiology DC Cardioversion Procedure Note Date: 01/17/24 Type of procedure: DC Cardioversion. Performed by: Jocelin Barajas MD / Ria Schneider MD Informed consent: Patient Indication: AF with RVR in heart failure Preparation and technique: The patient was brought into the procedure room. After an informed consent was obtained following a discussion with the patient where I explained the risk and benefit of the procedure that is not limited to skin hays, fluid in the lungs, heart attack, stroke, or even , though that is very rare. EKG was performed to confirm that the patient was in atrial fibrillation. Patches were placed in anteroposterior direction and once patient was made comfortable with Versed 5mg and Fentanyl 75mcg. MALGORZATA was performed to rule out left atrial appendage thrombus. Following sedation, the patient underwent synchronized cardioversion using 360J with successful cardioversion to normal sinus rhythm. Post procedure, the patient was noted to be comfortable and responsive without any abnormalities in her vitals or function. EKG post cardioversion showed normal sinus rhythm. No hemodynamic complications noted. Jocelin Barajas MD Technology Professional - PGY5 [facility] 12-27-2023 Note OR Cardiology - [facility] Subjective Melissa Dubose is a 63 y.o. year old female patient being seen for Follow-up (Follow up per Al ) Patient Active Problem List Diagnosis Coronary arteriosclerosis Edema of lower extremity Hypertensive disorder Family History Problem Relation Name Age of Onset Diabetes Mother Atrial fibrillation Mother Hyperlipidemia Mother Kidney disease Sister Heart attack Maternal Grandmother Stroke Maternal Grandmother Social History Tobacco Use Smoking status: Former Types: Cigarettes Smokeless tobacco: Never Substance Use Topics Alcohol use: Not Currently Drug use: Never PACO Melissa is seen in follow up. She is a 63 yo woman with CAD s/p bypass surgery and NSTEMI in 2016. She has hypertension on treatment. In the past she was discovered to have episodes of atrial tachycardia by event monitor. Recently she was admitted to an outside hospital with worsening shortness of breath and influenza A. She was found to have acute heart failure with an ejection fraction around 25% and elevated cardiac enzymes as well as new onset atrial fibrillation with rapid ventricular response. She underwent cardiac catheterization at [facility] which showed patent bypass grafts. She was started on GDMT for heart failure as well as anticoagulation therapy with Eliquis. She then developed lower GI bleeding and possible colitis. She also developed UTI. Anticoagulation therapy was interrupted but then resumed. She was most recently evaluated in our office on 12/11/2023 and initial adjustment of guideline directed medical therapy was initiated. Today she reports that she has shortness of breath on exertion NYHA class II-III symptoms with irregular heartbeats and palpitations. She denies chest pains. She has mild occasional lower extremity edema. Review of Systems Cardiovascular: Positive for dyspnea on exertion, irregular heartbeat, leg swelling and palpitations. Objective Visit Vitals BP 104/62 (BP Location: Left arm, Patient Position: Sitting, BP Cuff Size: Adult) Pulse 68 Resp 12 Ht 1.778 m (5' 10 ) Wt 122 kg (270 lb) SpO2 97% BMI 38.74 kg/m??? Smoking Status Former BSA 2.45 m??? Physical Exam Constitutional: Appearance: She is well-developed. She is obese. She is not ill-appearing. HENT: Head: Normocephalic and atraumatic. Nose: Nose normal. Eyes: General: No scleral icterus. Pupils: Pupils are equal, round, and reactive to light. Neck: Thyroid: No thyromegaly. Vascular: No JVD. Cardiovascular: Rate and Rhythm: Normal rate. Rhythm irregularly irregular. Pulses: Radial pulses are 0 on the right side and 0 on the left side. Heart sounds: Normal heart sounds. No murmur heard. No friction rub. No gallop. Comments: Good ulnar pulse Pulmonary: Effort: Pulmonary effort is normal. No respiratory distress. Breath sounds: Normal breath sounds. No wheezing or rales. Chest: Chest wall: No tenderness. Abdominal: General: Bowel sounds are normal. There is no distension. Palpations: Abdomen is soft. Tenderness: There is no abdominal tenderness. Musculoskeletal: General: No swelling. Cervical back: Neck supple. Right lower le+ Pitting Edema present. Left lower le+ Pitting Edema present. Skin: General: Skin is warm and dry. Neurological: General: No focal deficit present. Mental Status: She is alert and oriented to person, place, and time. Psychiatric: Mood and Affect: Mood normal. Behavior: Behavior is cooperative. Judgment: Judgment normal. Allergies Allergies Allergen Reactions Oxycodone-Acetaminophen Medications Current Outpatient Medications: cefdinir (Omnicef) 300 mg capsule, Take 2 capsules by mouth 1 (one) time each day at the same time., Disp: , Rfl: Eliquis 5 mg tablet, Take 5 mg by mouth in the morning and at bedtime., Disp: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 Doppler. LHC 11/22/23 - Severe [place] coronary artery disease with patent grafts BALLESTEROS to LAD; SVG to OM1-OM2 and SVG to RCA. - Close to euvolemic and patient wants to go home. I advised that we continue IVLasix at least through tomorrow then switch to PO. Orders placed to stop IV Lasix tomorrow and start PO lasix. - Afib is rate controlled on BB. Continue Eliquis 5mg BID. - GDMT: Metoprolol, Entresto, Aldactone and Jardiance. - Will see as needed. Please call with any questions. Follow up with her primarycardiologist Dr. Dukes at [facility] in 1-2 weeks. Documented By: Justine Jacobo MD 11/07 03/02 1327 Signed By: <Electronically signed by Justine Jacobo MD> 11/23/23 [address] [facility] Work Phone: [phone] Progress note Author Winter Norris [facility] November 23, 2023 10:04am Note Date/Time November 23, 2023 9:5 4am [facility] [address] [place] [address] Hospitalist Progress Note Signed Patient: Melissa Dubose MR#: [id number] : 1960 Acct:[id number] Age/Sex: 63 / F Adm Date: 4 Loc: Room: [address] [place] [address] Type: ADM IN Attending Dr: Winter Norris MD Copies to: ~ Date of Service: 11/23/2023 Subjective Subjective Narrative: Patient remains in atrial fibrillation with controlled heart rate. She did not sleep much last night due to increased dry cough with sinus congestion. She remains on supplemental oxygen. Yesterday cardiac catheterization showed widelypatent grafts to LAD, OM1?OM 2 and RCA. Due to moderate to severely depressed LV function has been started on guideline directed medical therapy. Also started on Eliquis for A- fib. Patient denies further hematuria. Exam Physical Exam Vital Signs: Temp Pulse Resp BP Pulse Ox O2 Del Method O2 Flow Rate 97.5 F L 77 20 101/74 97 Nasal Cannula 2 11/23/23 01:00 11/23/23 05:00 11/23/23 05:00 11/23/23 05:00 11/23/23 05:00 11/23/23 08:00 11/23/23 08:00 Const Orientation: alert, awake and oriented x3 Resp Effort & Inspection: normal respiratory effort Auscultation: crackles (Bibasilar) bilaterally, no rhonchi and no wheezes Cardio Rhythm: abnormal rhythm irregularly irregular Heart Sounds: S1 normal and S2 normal GI Palpation: soft, not firm, no guarding and nontender Neuro General: patient alert, patient awake, patient oriented x3, moves all extremities, no focal motor deficits and CN's II-XI intact bilaterally Extrem General: no calf tenderness and edema (Trace edema) Laterality: bilaterally Objective Lab Results 11/23/23 07:01 11/23/23 07:01 Meds Allergies and Active Meds Allergies No Known Allergies Allergy (Verified 11/21/23 03:47) Active Meds: Active Medications Generic Name Dose Route Start Last Admin Trade Name Freq PRN Reason Stop Dose Admin Acetaminophen 1,000 mg 11/21/23 03:10 11/21/23 04:18 Acetaminophen 500 Mg Tablet PO 11/20/24 03:09 1,000 mg Q6HR PRN Administration Pain Scale 1 - 3 or fever Albuterol 2.5 mg 11/21/23 03:10 11/21/23 13:32 Albuterol Neb 2.5 Mg/3 Ml Vial.Neb INHALATION 11/20/24 03:09 2.5 mg Q3H PRN Administration Cough/Wheeze Apixaban 5 mg 11/22/23 21:00 11/22/23 21:18 Apixaban 5 Mg Tablet PO 11/21/24 20:59 5 mg BID FUNMI Administration Aspirin 81 mg 11/21/23 09:00 11/22/23 09:25 Aspirin 81 Mg Tablet.Dr PO 11/20/24 08:59 81 mg DAILY FUNMI Administration Atorvastatin Calcium 20 mg 11/22/23 21:00 11/22/23 21:18 Atorvastatin 20 Mg Tablet PO 11/21/24 20:59 20 mg QPM FUNMI Administration Dextrose 0 gm 11/21/23 03:49 Dextrose 50% In Water 25 Gm/50 Ml Syringe IV-PUSH 11/20/24 03:48 PRN PRN Hypoglycemia Furosemide 40 mg 11/23/23 08:45 Furosemide 40 Mg/4 Ml Vial IV-PUSH 11/22/24 08:44 BID@0800,1600 FUNMI Glucose 0 gm 11/21/23 03:49 Dextrose 40% Gel 15 Gm Tube PO 11/20/24 03:48 PRN PRN Hypoglycemia Guaifenesin 1,200 mg 11/21/23 09:00 11/22/23 21:18 Guaifenesin 600 Mg Tab.Er.12h PO 11/20/24 08:59 1,200 mg BID FUNMI Administration Guaifenesin/Codeine Phosphate 10 ml 11/23/23 08:45 Guaifenesin/Codeine Liq 10 Ml Udc PO 05/21/24 08:44 Q6H PRN Cough Insulin Aspart 0 units 11/21/23 08:00 11/22/23 21:18 Insulin Aspart 300 Units/3 Ml Insuln.Pen SUBCUT 11/20/24 07:59 12 units TID.WM.HS FUNMI Administration Protocol Metoprolol Succinate 25 mg 11/22/23 09:00 11/22/23 09:24 Metoprolol Succinate 25 Mg Tab.Er.24h PO 11/21/24 08:59 25 mg DAILY FUNMI Administration Miscellaneous Information 1 each 11/22/23 13:58 Consult To Pharmacy MISCELLANE 11/21/24 13:57 .PHACONSULT PRN ZZ.Pharmacy Consult Protocol Ondansetron HCl 4 mg 11/21/23 03:10 Ondansetron 4 Mg/2 Ml Vial IV-PUSH 11/20/24 03:09 Q6H PRN Nausea And Vomiting Oseltamivir Phosphate 75 mg 11/21/23 09:00 11/22/23 21:18 Oseltamivir Phosphate 75 Mg Capsule PO 11/25/23 09:01 75 mg BID FUNMI Administration Pantoprazole Sodium 40 mg 11/23/23 09:00 Pantoprazole 40 Mg Tablet. PO 11/22/24 08:59 DAILY FUNMI Potassium Chloride 40 meq 11/22/23 07:00 Potassium Chloride Er 20 Meq Tab.Er.Prt PO STAT PRN Hypokalemia Prednisone 40 mg 11/23/23 09:00 Prednisone 20 Mg Tablet PO 11/27/23 08:59 DAILY FUNMI Sacubitril/Valsartan 1 tab 11/22/23 09:00 11/22/23 21:18 Sacubitril/Valsartan 24-26mg 1 Tab Tablet PO 11/21/24 08:59 1 tab BID FUNMI Administration Sodium Chloride 0 ml 11/21/23 06:00 11/23/23 01:00 Sodium Chloride 0.9 % 10 Ml Syringe IV-PUSH 11/20/24 05:59 10 ml QSHIFT FUNMI Administration Sodium Chloride 0 ml 11/21/23 15:48 Sodium Chloride 0.9 % 10 Ml Syringe IV-PUSH 11/20/24 15:47 PRN PRN Flush Spironolactone 25 mg 11/23/23 09:00 Spironolactone 25 Mg Tablet PO 11/22/24 08:59 DAILY FUNMI A&P - Hospitalist Assessment/Plan (1) Acute hypoxic respiratory failure: (2) Shortness of breath: (3) NSTEMI (non-ST elevated myocardial infarction): (4) Chest pain: (5) Atrial fibrillation: (6) Diabetes: (7) Hypertension: (8) Influenza A: (9) Headache: (10) S/P CABG (coronary artery bypass graft): (11) HFrEF (heart failure with reduced ejection fraction): Plan Acute hypoxic respiratory failure?SpO2 was 86% on room air upon arrival to [facility] emergency room, 4 L nasal cannula applied Patient currently on 2 L oxygen and continue taper oxygen as tolerated. Likely combination of acute bronchitis due to influenza along with acute systolic heartfailure. Will start on IV Lasix for aggressive diuresis. NSTEMI/A-fib /HFrEF Chest pain?patient believes she has chest pain due to her coughing New onset A-fib?rate controlled ?Appreciate cardiology consultation. She underwent cardiac catheterization yesterday which showed patent grafts. -Echocardiogram showing EF of 25% with severely dilated left ventricle. -Patient has been started on Entresto, spironolactone and metoprolol. Will alsoadd SGLT2 inhibitor. Renal function remained stable. -Started on Eliquis. Influenza A/acute bronchitis ? Continue Tamiflu ? Mucinex twice daily ? Headache has improved. -Started on steroid due to acute bronchitis with expiratory wheezing and will switch to oral with plan for short course of prednisone. -Patient complaining of increased dry cough. Will switch to codeine. -Obtain portable chest x-ray. -Obtain sputum for culture to rule out any superimposed bacterial infection. Diabetes mellitus type 2 with hyperglycemia -Uncontrolled due to steroids. A1c level 4.7. -Continue to hold metformin and continue sliding scale coverage. -Blood glucose better controlled. -Start on SGLT2 inhibitor. Hematuria -Resolved. Documented By: Winter Norris MD 11/23/2352 Signed By: <Electronically signed by Winter Norris MD> 11/23/23 [address] [facility] Work Phone: [phone]) 866-734703-15-2024 Progress note Author Jayne Vallecillo [facility] November 22, 2023 3:26pm Note Date/Time November 22, 2023 3:1 5pm [facility] [address] [place] [address] Cardiology Progress Note Signed Patient: Melissa Dubose MR#: [id number] : 1960 Acct:[id number] Age/Sex: 63 / F Adm Date: 4 Loc: Room: [address] [place] [address] Type: ADM IN Attending Dr: Winter Norris MD Copies to: ~ Date of Service: 11/22/2023 Subjective Interval history: - No acute events overnight. Continues to have mild dyspnea and orthopnea. - LHC completed today by Dr Siddiqi. Exam Physical Exam Vital Signs: Temp Pulse Resp BP Pulse Ox O2 Del Method O2 Flow Rate 97.4 F L 90 20 133/92 99 Nasal Cannula 2 11/22/23 14:15 11/22/23 14:45 11/22/23 14:45 11/22/23 14:45 11/22/23 14:45 11/22/23 14:45 11/22/23 14:45 Narrative: GEN: AAOx3. No acute distress. Neck: No JVD. Lungs: Clear to auscultation bilaterally Heart: Regular rate and rhythm. Normal S1 and S2. No murmurs or rubs appreciated. Abdomen: Soft, nontender, nondistended, bowel sounds present. Extremities: No BLE edema. Neuro: AAOx3. No focal deficits. Objective Labs 11/22/23 05:09 11/22/23 05:09 Labs: Laboratory Results - last 24 hr 11/21/23 11/21/23 11/21/23 13:47 16:38 16:43 Corrected WBC Uncorrected WBC Count RBC Hgb Hct MCV MCH MCHC RDW Plt Count MPV Neut % (Auto) Lymph % (Auto) Branch % (Auto) Eos % (Auto) Baso % (Auto) Nucleat RBC Rel Count Neut # (Auto) Lymph # (Auto) Branch # (Auto) Eos # (Auto) Baso # (Auto) PT INR APTT 152.4 H* 47.2 H PHA Creatinine Clear Sodium Potassium Chloride Carbon Dioxide Anion Gap BUN Creatinine Est GFR (CKD-EPI) POC Glucose 345 POC Glucose Comment Urine Color Urine Appearance Urine pH Ur Specific [place] Urine Protein Urine Glucose (UA) Urine Ketones Urine Occult Blood Urine Nitrite Urine Bilirubin Urine Urobilinogen Ur Leukocyte Esterase Urine RBC Urine WBC Ur Squamous Epith Cells Urine Bacteria Hyaline Casts 11/21/23 11/21/23 11/21/23 18:15 20:45 20:45 Corrected WBC Uncorrected WBC Count RBC Hgb Hct MCV MCH MCHC RDW Plt Count MPV Neut % (Auto) Lymph % (Auto) Branch % (Auto) Eos % (Auto) Baso % (Auto) Nucleat RBC Rel Count Neut # (Auto) Lymph # (Auto) Branch # (Auto) Eos # (Auto) Baso # (Auto) PT INR APTT PHA Creatinine Clear Sodium Potassium Chloride Carbon Dioxide Anion Gap BUN Creatinine Est GFR (CKD-EPI) POC Glucose 405 H* POC Glucose Comment Cleaned meter Urine Color Yellow Urine Appearance Clear Urine pH 5.5 Ur Specific [place]send 1.012 Urine Protein Negative Urine Glucose (UA) >=1000 H Urine Ketones Negative Urine Occult Blood 1+ H Urine Nitrite Negative Urine Bilirubin Negative Urine Urobilinogen Normal Ur Leukocyte Esterase Negative Urine RBC 1-2 Urine WBC 0-1 Ur Squamous Epith Cells None seen Urine Bacteria None seen Hyaline Casts None seen 11/21/23 11/21/23 11/22/23 20:45 22:57 05:09 Corrected WBC 6.5 Uncorrected WBC Count 6.5 RBC 4.18 Hgb 11.9 Hct 36.9 MCV 88.2 MCH 28.5 MCHC 32.4 RDW 15.2 Plt Count 177 MPV 8.5 Neut % (Auto) 81.3 Lymph % (Auto) 10.0 Branch % (Auto) 8.6 Eos % (Auto) 0.0 Baso % (Auto) 0.1 Nucleat RBC Rel Count 0.1 Neut # (Auto) 5.3 Lymph # (Auto) 0.6 L Branch # (Auto) 0.6 Eos # (Auto) 0.0 Baso # (Auto) 0.0 PT 14.0 H INR 1.2 APTT 27.6 PHA Creatinine Clear 68.56 Sodium 138 Potassium 4.7 Chloride 103 Carbon Dioxide 28.3 Anion Gap 11.4 BUN 24 Creatinine 1.15 Est GFR (CKD-EPI) 54.198 POC Glucose 354 POC Glucose Comment Will repeat test Urine Color Urine Appearance Urine pH Ur Specific [place] Urine Protein Urine Glucose (UA) Urine Ketones Urine Occult Blood Urine Nitrite Urine Bilirubin Urine Urobilinogen Ur Leukocyte Esterase Urine RBC Urine WBC Ur Squamous Epith Cells Urine Bacteria Hyaline Casts 11/22/23 11:31 Corrected WBC Uncorrected WBC Count RBC Hgb Hct MCV MCH MCHC RDW Plt Count MPV Neut % (Auto) Lymph % (Auto) Branch % (Auto) Eos % (Auto) Baso % (Auto) Nucleat RBC Rel Count Neut # (Auto) Lymph # (Auto) Branch # (Auto) Eos # (Auto) Baso # (Auto) PT INR APTT PHA Creatinine Clear Sodium Potassium Chloride Carbon Dioxide Anion Gap BUN Creatinine Est GFR (CKD-EPI) POC Glucose 181 POC Glucose Comment Urine Color Urine Appearance Urine pH Ur Specific [place] Urine Protein Urine Glucose (UA) Urine Ketones Urine Occult Blood Urine Nitrite Urine Bilirubin Urine Urobilinogen Ur Leukocyte Esterase Urine RBC Urine WBC Ur Squamous Epith Cells Urine Bacteria Hyaline Casts A&P - Cardiology (1) Influenza A: Code(s): J10.1 - Influenza due to other identified influenza virus with other respiratorymanifestations (2) HFrEF (heart failure with reduced ejection fraction): Code(s): I50.20 - Unspecified systolic (congestive) heart failure (3) S/P CABG (coronary artery bypass graft): Code(s): Z95.1 - Presence of aortocoronary bypass graft (4) Coronary artery disease involving [place] coronary artery of [place] heart without angina pectoris: Code(s): I25.10 - Atherosclerotic heart disease of [place] coronary artery without angina pectoris (5) Myocardial injury: Code(s): I5A - Non-ischemic myocardial injury (non-traumatic) Plan # Mild acute HF in setting of newly diagnosed HFrEF due to undefined cardiomyopathy # Dilated ischemic cardiomyopathy EF 25% # Moderate to severe MR # Atrial fibrillation [id number] = 5 # Influenza A infection # Non-ACS troponin elevation due to myocardial injury -likely secondary to influenza and mild acute heart failure. # CAD s/p 3v CABG (done ~2013) # Other: T2DM, HTN. Echo 11/21/23 - EF 25%, severe LV dilation, severely dilated LA, moderately dilated RA, moderate to severe MR, mild TR, RVSP 60 mmHg consistent with severe pulmonary hypertension, moderately dilated IVC, PFO by color Doppler. Recommendations: - LHC completed today shows severe [place] coronary artery disease with patent grafts BALLESTEROS to LAD; SVG to OM1-OM2 and SVG to RCA. - Continue diuresis with Lasix 40mg IV BID. LVEDP elevated at 20mmHg. - Afib is rate controlled. Continue Eliquis 5mg BID. - GDMT: Metoprolol, Entresto Aldactone. Start Jardiance tomorrow if renal function stable. - Will follow. Documented By: Jayne Vallecillo MD 11/22/23 1505 Signed By: <Electronically signed by Jayne Vallecillo MD> 11/22/23 [address] [facility] Work Phone: 1(892) 233-284003-15-2024 Consult note Author W Devang [facility] November 22, 2023 2:25pm Note Date/Time November 22, 2023 2:2 5pm [facility] [address] [place] [address] Cardiology Consult Note Signed Patient: Melissa Dubose MR#: [id number] : 1960 Acct:[id number] Age/Sex: 63 / F Adm Date: 4 Loc: Room: [address] [place] [address] Type: ADM IN Attending Dr: Winter Norris MD Copies to: MD Winter West MD W Scott Sheldon, DO~ Cardiology HPI History of Present Illness Consult Date: 11/22/23 Reason for Consult: Influenza A, acute left ventricular systolic dysfunction with HFrEF, ASHD, remote CABG HPI: Ms. Dubose is a 63 year old female seen in interventional cardiology consultation at the request of Dr. Jacobo for further interventional evaluationand management. Patient presents as previously described, from outside hospitalwith acute respiratory distress, chest pain, minimal troponin rise of 70, mild acute left ventricular systolic heart failure with newly diagnosed reduced left ventricular function by echo. Details of her imaging, electrocardiograms, laboratory are all reviewed, bypass grafts are unknown. Patient had bypass surgery in 2013 at [facility], routinely follows with Dr. Grimes. She presents with atrial fibrillation and notably is not on any beta-indra or anticoagulation at least upon review of her home medications. After discussing past medical history and medications with the patient she does not admit to any of the DOAC or warfarin therapies. Comorbidities are noted for morbid obesity, diabetes, hypertension Plan at this time at the request of general cardiology is to proceed with left heart catheterization to evaluate for reduction in LV function specifically evaluate graft and [place] and coronary anatomy for treatable targets. Review of Systems Review of Systems All other systems reviewed & are negative unless noted below or in HPI Constitutional Constitutional: Reports as per HPI, Reports fatigue and Reports weakness Cardiovascular Cardiovascular: Reports chest pain at rest, Reports dyspnea and Reports orthopnea Respiratory Respiratory: Reports as per HPI [facility] Medical History Myocardial infarction Hypertension Diabetes Surgical History History of back surgery Hx of CABG 3 vessel at [facility] Family History Mother Diabetes Paternal Grandfather Pancreatic cancer Daughter Diabetes Social History Smoking Status: Former smoker Tobacco Type: cigarettes Substance Use Type: None Meds Medications and Allergies Allergies No Known Allergies Allergy (Verified 11/21/23 03:47) Home Medications amoxicillin 875 mg-potassium clavulanate 125 mg tablet 1 tab PO Q12HR 11/21/23 [History Confirmed 11/21/23] atorvastatin 20 mg tablet 20 mg PO DAILY 11/21/23 [History Confirmed 11/21/23] ezetimibe 10 mg tablet 10 mg PO DAILY 11/21/23 [History Confirmed 11/21/23] lisinopril 40 mg tablet 40 mg PO DAILY 11/21/23 [History Confirmed 11/21/23] metformin 500 mg tablet 500 mg PO BID 11/21/23 [History Confirmed 11/21/23] pantoprazole 40 mg tablet,delayed release 40 mg PO DAILY 11/21/23 [History Confirmed 11/21/23] semaglutide 0.25 mg or 0.5 mg (2 mg/3 mL) subcutaneous pen injector (Ozempic) 0.5 mg subcut .weekly 11/21/23 [History Confirmed 11/21/23] Exam Physical Exam Vital Signs: Temp Pulse Resp BP Pulse Ox O2 Del Method O2 Flow Rate 97.6 F 84 18 129/79 97 Nasal Cannula 2 11/22/23 12:00 11/22/23 12:00 11/22/23 12:00 11/22/23 12:00 11/22/23 12:00 11/22/23 12:00 11/22/23 12:00 Const General: cooperative and in distress mild and respiratory Nutritional Appearance: obese Orientation: alert, awake and oriented x3 HEENT Head: normal to inspection Face and sinus: erythema (Erythematous rash over both cheeks (possible butterflyrash)) bilaterally Neck Neck: normal visual inspection Chest Chest palpation & inspection: normal inspection of the chest Resp Effort & Inspection: able to speak in complete sentences and no retractions Auscultation: crackles Cardio Rate: tachycardic Rhythm: abnormal rhythm Heart Sounds: S1 normal and S2 normal Pulses: radial pulses present GI Inspection: large pannus and obesity Palpation: soft Skin Rashes: rashes noted (See facial exam) Neuro General: patient alert, patient awake and patient oriented x3 Cognition: normal cognition Speech: speech normal Extrem General: no clubbing, cyanosis or edema Results - Cardiology Labs 11/22/23 05:09 11/22/23 05:09 Lab results: CBC 11/22/23 Range/Units 05:09 RBC 4.18 (3.60-5.00) X10E6/uL Hgb 11.9 (11.8-15.4) g/dL Hct 36.9 (34.0-46.4) % Plt Count 177 (150-450) x10E3/uL Neut # (Auto) 5.3 (1.8-7.7) x10E3/uL Lymph # (Auto) 0.6 L (1.00-4.8) x10E3/uL Branch # (Auto) 0.6 (0.0-0.8) x10E3/uL Eos # (Auto) 0.0 (0.0-0.45) x10E3/uL Baso # (Auto) 0.0 (0.0-0.2) x10E3/uL Comprehensive Metabolic Panel 11/22/23 Range/Units 05:09 Sodium 138 (136-145) mmol/L Potassium 4.7 (3.5-5.1) mmol/L Chloride 103 (98-107) mmol/L Carbon Dioxide 28.3 (21.0-31.0) mmol/L BUN 24 (7-25) mg/dL Creatinine 1.15 (0.60-1.20) mg/dL Intake and Output 11/21/23 11/22/23 11/22/23 23:59 07:59 15:59 Intake Total 400 / 700 200 / 200 Output Total 350 / 350 Balance 400 / 350 -150 / -150 Intake: Oral 400 / 700 200 / 200 Output: Urine 350 / 350 Other: # Unmeasured Voids 2 1 # Bowel Movements 0 Weight 106.3 kg Date of Last Bowel Movement 11/20/23 Patient Weight 11/22/23 23:59 Weight 106.3 kg Lab 11/21/23 11/21/23 11/21/23 04:16 10:34 13:47 PT 15.6 H INR 1.4 APTT 51.3 H > 400.0 H* 152.4 H* 11/21/23 11/22/23 16:43 05:09 PT 14.0 H INR 1.2 APTT 47.2 H 27.6 EKG Interpretations EKG EKG shows: atrial fibrillation A&P - Cardiology (1) Influenza A: Code(s): J10.1 - Influenza due to other identified influenza virus with other respiratorymanifestations (2) HFrEF (heart failure with reduced ejection fraction): Code(s): I50.20 - Unspecified systolic (congestive) heart failure (3) S/P CABG (coronary artery bypass graft): Code(s): Z95.1 - Presence of aortocoronary bypass graft (4) Coronary artery disease involving [place] coronary artery of [place] heart without angina pectoris: Code(s): I25.10 - Atherosclerotic heart disease of [place] coronary artery without angina pectoris (5) Myocardial injury: Code(s): I5A - Non-ischemic myocardial injury (non-traumatic) Plan Proceed with left heart catheterization plus minus revascularization Documented By: Hernan Siddiqi DO 11/22/23 1417 Signed By: <Electronically signed by Hernan Siddiqi, DO> 11/22/23 1425 [facility] Work Phone: [phone]) [phone] [facility] Progress note Author Winter Norris [facility] November 22, 2023 10:05am Note Date/Time November 22, 2023 10: 01am [facility] [address] [place] [address] Hospitalist Progress Note Signed Patient: Melissa Dubose MR#: [id number] : 1960 Acct:[id number] Age/Sex: 63 / F Adm Date: 4 Loc: Room: [address] [place] [address] Type: ADM IN Attending Dr: Winter Norris MD Copies to: ~ Date of Service: 11/22/2023 Subjective Subjective Narrative: Upon entering the room patient was resting comfortably lying flat on 2 L oxygen. Once awake she is complaining of increased sinus congestion with improvement inheadache as compared to yesterday. Also having excessive dry cough. Currently n.p.o. for cardiac cath later today. She remains in A-fib with controlled heartrate. Heparin drip has been discontinued due to concern for mild hematuria yesterday which has resolved. Cardiogram showing EF of 25% with severely dilated left ventricle. Also noted to have severe pulmonary hypertension. Exam Physical Exam Vital Signs: Temp Pulse Resp BP Pulse Ox O2 Del Method O2 Flow Rate 98.3 F 83 20 142/75 H 95 Nasal Cannula 2 11/22/23 08:00 11/22/23 08:00 11/22/23 08:00 11/22/23 08:00 11/22/23 08:00 11/22/23 08:00 11/22/23 08:00 Const Orientation: alert, awake and oriented x3 Resp Effort & Inspection: normal respiratory effort Auscultation: no rales, no rhonchi and no wheezes Cardio Rhythm: abnormal rhythm irregularly irregular Heart Sounds: S1 normal and S2 normal GI Palpation: soft, not firm, no guarding and nontender Neuro General: patient alert, patient awake, patient oriented x3, moves all extremities, no focal motor deficits and CN's II-XI intact bilaterally Extrem General: no calf tenderness and edema (Trace edema) Laterality: bilaterally Objective Lab Results 11/22/23 05:09 11/22/23 05:09 Meds Allergies and Active Meds Allergies No Known Allergies Allergy (Verified 11/21/23 03:47) Active Meds: Active Medications Generic Name Dose Route Start Last Admin Trade Name Freq PRN Reason Stop Dose Admin Acetaminophen 1,000 mg 11/21/23 03:10 11/21/23 04:18 Acetaminophen 500 Mg Tablet PO 11/20/24 03:09 1,000 mg Q6HR PRN Administration Pain Scale 1 - 3 or fever Albuterol 2.5 mg 11/21/23 03:10 11/21/23 13:32 Albuterol Neb 2.5 Mg/3 Ml Vial.Neb INHALATION 11/20/24 03:09 2.5 mg Q3H PRN Administration Cough/Wheeze Aspirin 81 mg 11/21/23 09:00 11/22/23 09:25 Aspirin 81 Mg Tablet. PO 11/20/24 08:59 81 mg DAILY FUNMI Administration Benzonatate 200 mg 11/21/23 03:50 11/22/23 09:24 Benzonatate 100 Mg Capsule PO 11/20/24 03:49 200 mg TID PRN Administration Cough Dextrose 0 gm 11/21/23 03:49 Dextrose 50% In Water 25 Gm/50 Ml Syringe IV-PUSH 11/20/24 03:48 PRN PRN Hypoglycemia Furosemide 40 mg 11/21/23 16:45 11/21/23 17:16 Furosemide 40 Mg/4 Ml Vial IV-PUSH 11/22/23 16:44 40 mg BID@0800,1600 FUNMI Administration Glucose 0 gm 11/21/23 03:49 Dextrose 40% Gel 15 Gm Tube PO 11/20/24 03:48 PRN PRN Hypoglycemia Guaifenesin 1,200 mg 11/21/23 09:00 11/22/23 09:23 Guaifenesin 600 Mg Tab.Er.12h PO 11/20/24 08:59 1,200 mg BID FUNMI Administration Insulin Aspart 0 units 11/21/23 08:00 11/22/23 09:27 Insulin Aspart 300 Units/3 Ml Insuln.Pen SUBCUT 11/20/24 07:59 2 units TID.WM.HS FUNMI Administration Protocol Methylprednisolone Sodium Succinate 20 mg 11/21/23 12:30 11/22/23 09:25 Methylprednisolone Sod Succ/Pf 40 Mg/Ml (1ml) Vial IV-PUSH 11/20/24 12:29 20 mg Q12HR FUNMI Administration Metoprolol Succinate 25 mg 11/22/23 09:00 11/22/23 09:24 Metoprolol Succinate 25 Mg Tab.Er.24h PO 11/21/24 08:59 25 mg DAILY FUNMI Administration Miscellaneous Information 1 each 11/21/23 15:48 Consult To Pharmacy MISCELLANE 11/20/24 15:47 .PHACONSULT PRN ZZ.Pharmacy Consult Protocol Ondansetron HCl 4 mg 11/21/23 03:10 Ondansetron 4 Mg/2 Ml Vial IV-PUSH 11/20/24 03:09 Q6H PRN Nausea And Vomiting Oseltamivir Phosphate 75 mg 11/21/23 09:00 11/22/23 09:24 Oseltamivir Phosphate 75 Mg Capsule PO 11/25/23 09:01 75 mg BID FUNMI Administration Oxycodone HCl 5 mg 11/21/23 14:22 11/21/23 22:44 Oxycodone Ir 5 Mg Tablet PO 5 mg Q6HR PRN Administration Pain Potassium Chloride 40 meq 11/22/23 07:00 Potassium Chloride Er 20 Meq Tab.Er.Prt PO STAT PRN Hypokalemia Sacubitril/Valsartan 1 tab 11/22/23 09:00 11/22/23 09:23 Sacubitril/Valsartan 24-26mg 1 Tab Tablet PO 11/21/24 08:59 1 tab BID FUNMI Administration Sodium Chloride 0 ml 11/21/23 06:00 11/22/23 06:16 Sodium Chloride 0.9 % 10 Ml Syringe IV-PUSH 11/20/24 05:59 Not Given QSHIFT FUNMI Sodium Chloride 0 ml 11/21/23 15:48 Sodium Chloride 0.9 % 10 Ml Syringe IV-PUSH 11/20/24 15:47 PRN PRN Flush Spironolactone 12.5 mg 11/23/23 09:00 Spironolactone 12.5 Mg Tablet PO 11/22/24 08:59 DAILY FUNMI A&P - Hospitalist Assessment/Plan (1) Acute hypoxic respiratory failure: (2) Shortness of breath: (3) NSTEMI (non-ST elevated myocardial infarction): (4) Chest pain: (5) Atrial fibrillation: (6) Diabetes: (7) Hypertension: (8) Influenza A: (9) Headache: (10) S/P CABG (coronary artery bypass graft): (11) HFrEF (heart failure with reduced ejection fraction): Plan Acute hypoxic respiratory failure?SpO2 was 86% on room air upon arrival to [facility] emergency room, 4 L nasal cannula applied Patient currently on 2 L oxygen and continue taper oxygen as tolerated. Likely combination of acute bronchitis due to influenza along with acute systolic heartfailure. He did receive 1 dose of IV Lasix yesterday. NSTEMI/A-fib /HFrEF Chest pain?patient believes she has chest pain due to her coughing New onset A-fib?rate controlled ? Consult cardiology plan for cardiac cath today at 1 PM. -Echocardiogram showing EF of 25% with severely dilated left ventricle. Given worsening nonischemic cardiomyopathy with plan for cardiac cath later today. -She has been started on Entresto, spironolactone and beta-indra. Will add SGLT2 inhibitor as well once her symptoms improved. Influenza A/acute bronchitis Headache ? Continue Tamiflu ? Mucinex twice daily ? Headache has improved as compared to yesterday -Started on steroid due to acute bronchitis with expiratory wheezing and will switch to oral with plan for short course of prednisone. Diabetes mellitus type 2 with hyperglycemia -Uncontrolled due to steroids. A1c level 4.7. -Continue to hold metformin and continue sliding scale coverage. -Add SGLT2 inhibitor down the course. -Will add basal insulin if she remains hyperglycemic. Hematuria -Resolved and heparin drip has been discontinued. -Defer anticoagulation to cardiology. -SCDs for DVT prophylaxis. Documented By: Winter Norris MD 11/22/23 0956 Signed By: <Electronically signed by Winter Norris MD> 11/22/23 4699 [facility] Work Phone: 1(366) 949-109903-14-2024 Consult note Author Justine Jacobo [facility] November 21, 2023 4:39pm Note Date/Time November 21, 2023 3:0 2pm [facility] [address] [place] [address] Cardiology Consult Note Signed Patient: Melissa Dubose MR#: [id number] : 1960 Acct:[id number] Age/Sex: 63 / F Adm Date: 4 Loc: Room: 0F8324-7 Type: ADM IN Attending Dr: Winter Norris MD Copies to: MD Justine West MD Mazhar Rahman, MD~ Cardiology HPI History of Present Illness Consult Date: 11/21/23 HPI: Ms. Dubose is a 63 year old female with the PMH below ike presented to the [place] ER for chest pain, SOB, cough and nausea. She also reports subjective fevers, chills and body aches. She was found to be positive for influenza A. On admission, she is hemodynamically stable. CBC and CMP are largely normal. Lactate initially elevated at 2.7. EKG is nonischemic. Troponin is mildly elevated 80--80--70s. CXR shows mild vascular congestion with sternotomy wires. Echo shows severely reduced EF of 25% with severely dilated LV. She was initially started on a heparin drip, and Tamiflu for her influenza. She reportsthat in the past she has never been diagnosed with heart failure. She does not have significant leg swelling, and only has mild orthopnea. Review of Systems Review of Systems Review of systems: Review of Systems General: Denies unexplained weight loss. HEENT: Denies vision changes, auditory changes. Cardiac: Denies chest pain, palpitations, PND. Resp: Denies hemoptysis. Abdominal: Denies N/V, abdominal pain, diarrhea. Neuro: Denies headache, dizziness, seizures. : Denies dysuria, frequency, hematuria. Endo: Denies increased thirst, polyuria. Heme: Denies easy bleeding, ecchymosis. Skin: Denies rashes, pruritus. [facility] Medical History Myocardial infarction Hypertension Diabetes Surgical History History of back surgery Hx of CABG 3 vessel at [facility] Family History Mother Diabetes Paternal Grandfather Pancreatic cancer Daughter Diabetes Social History Smoking Status: Former smoker Tobacco Type: cigarettes Substance Use Type: None Meds Medications and Allergies Allergies No Known Allergies Allergy (Verified 11/21/23 03:47) Exam Physical Exam Vital Signs: Temp Pulse Resp BP Pulse Ox O2 Del Method O2 Flow Rate 97.6 F 104 H 24 142/96 H 95 Nasal Cannula 4 11/21/23 11:21 11/21/23 13:40 11/21/23 13:40 11/21/23 11:21 11/21/23 11:21 11/21/23 11:21 11/21/23 11:21 Narrative: Physical Exam: General: NAD, A&Ox3, Cooperative HEENT: NC/AT, EOMI, Neck supple Lungs: Mild sparse rhonchi Heart: S1S2 normal, Regular rhythm, No murmurs/rubs/gallop, No JVD Extremities: No edema. Abdomen: Soft, non-tender, non-distended. Neuro: CN grossly intact, No focal deficits. Psych: Normal mood & affect. Results - Cardiology Labs 11/21/23 04:16 11/21/23 04:16 Lab results: Lipids 11/21/23 Range/Units 04:16 Triglycerides 63 (0-149) mg/dL Cholesterol 95 L (140-200) mg/dL HDL Cholesterol 29 (23-92) mg/dL Cholesterol/HDL Ratio 3.3 (<5.0) CBC 11/21/23 Range/Units 04:16 RBC 4.25 (3.60-5.00) X10E6/uL Hgb 12.3 (11.8-15.4) g/dL Hct 37.6 (34.0-46.4) % Plt Count 158 (150-450) x10E3/uL Neut # (Auto) 4.9 (1.8-7.7) x10E3/uL Lymph # (Auto) 0.3 L (1.00-4.8) x10E3/uL Branch # (Auto) 0.1 (0.0-0.8) x10E3/uL Eos # (Auto) 0.0 (0.0-0.45) x10E3/uL Baso # (Auto) 0.0 (0.0-0.2) x10E3/uL Comprehensive Metabolic Panel 11/21/23 Range/Units 04:16 Sodium 137 (136-145) mmol/L Potassium 4.2 (3.5-5.1) mmol/L Chloride 106 (98-107) mmol/L Carbon Dioxide 22.3 (21.0-31.0) mmol/L BUN 18 (7-25) mg/dL Creatinine 0.96 (0.60-1.20) mg/dL Glucose 260 H (70-100) mg/dL Calcium 8.4 L (8.6-10.3) mg/dL Intake and Output 11/21/23 11/21/23 11/21/23 06:59 14:59 22:59 Intake Total 100 / 100 Balance 100 / 100 Intake: Oral 100 / 100 Other: # Unmeasured Voids 1 Weight 108.6 kg Lab 11/21/23 11/21/23 04:16 10:34 PT 15.6 H INR 1.4 APTT 51.3 H > 400.0 H* A&P - Cardiology (1) Influenza A: Code(s): J10.1 - Influenza due to other identified influenza virus with other respiratorymanifestations (2) HFrEF (heart failure with reduced ejection fraction): Code(s): I50.20 - Unspecified systolic (congestive) heart failure (3) S/P CABG (coronary artery bypass graft): Code(s): Z95.1 - Presence of aortocoronary bypass graft (4) Coronary artery disease involving [place] coronary artery of [place] heart without angina pectoris: Code(s): I25.10 - Atherosclerotic heart disease of [place] coronary artery without angina pectoris (5) Myocardial injury: Code(s): I5A - Non-ischemic myocardial injury (non-traumatic) Plan # Mild acute HF in setting of newly diagnosed HFrEF due to undefined cardiomyopathy # Influenza A infection # Non-ACS troponin elevation due to myocardial injury -likely secondary to influenza and mild acute heart failure. # CAD s/p 3v CABG (done ~2013, patient does not recall where) # Other: T2DM, HTN. Echo 11/21/23 - EF 25%, severe LV dilation, severely dilated LA, moderately dilated RA, moderate to severe MR, mild TR, RVSP 60 mmHg consistent with severe pulmonary hypertension, moderately dilated IVC, PFO by color Doppler. CXR 11/21/23 - mild vascular congestion with sternotomy wires (my read). - Mild diuresis. Lasix IV added. - No indication for Heparin gtt. - NPO after MN for LHC. - GDMT: Metoprolol, Entresto Aldactone. - Will follow. Documented By: Justine Jacobo MD 11/07 12/31 1500 Signed By: <Electronically signed by Justine Jacobo MD> 11/21/23 2050 [facility] Work Phone: 1(438) 615-377703-14-2024 Progress note Author Winter Norris [facility] November 21, 2023 12:12pm Note Date/Time November 21, 2023 12: 09pm [facility] [address] [place] [address] Event Note Signed Patient: Melissa Dubose MR#: [id number] : 1960 Acct:[id number] Age/Sex: 63 / F Adm Date: 4 Loc: Room: [address] [place] [address] Type: ADM IN Attending Dr: Winter Norris MD Copies to: MD Winter West MD~ Status Event Note Event Note DATE OF EVENT: 11/21/23 TIME OF EVENT: 12:07 EVENT DETAILS: Patient was admitted after midnight please refer to H&P for detailed note regarding her presentation. On examination patient remains on 4 L oxygen deniesprior history of COPD, asthma or sleep apnea. Complaining of headache with increased sinus congestion. She was transferred from outside facility last night due to complaint of chest pain with fever and shortness of breath. Found to be in atrial fibrillation rapid ventricular rate. Currently on heparin drip and cardiology has been consulted. Also receiving oseltamivir for influenza. Echocardiogram showing EF of 25% with severely dilated left ventricle and severepulmonary hypertension. Also noted to have moderate to severe mitral regurgitation. He does have history of coronary disease status post CABG. Discontinue IV fluids will obtain chest x-ray. On auscultation noted to have bilateral expiratory wheezing and appears tachypnea. Started on IV steroids foracute bronchitis due to influenza. TIME W/PATIENT (# MINS): 20 Documented By: Winter Norris MD 11/21/23 1207 Signed By: <Electronically signed by Winter Norris MD> 11/21/23 1212 [facility] Work Phone: 1(192) 335-607703-14-2024 History and physical note Author Isaac Greenwood [facility] November 21, 2023 5:31am Note Date/Time November 21, 2023 3:0 1am [facility] [address] [place] [address] Hospitalist H&P Signed Patient: Melissa Dubose MR#: [id number] : 1960 Acct:[id number] Age/Sex: 63 / F Adm Date: 4 Loc: Room: [address] [place] [address] Type: ADM IN Attending Dr: Isaac Greenwood DO Copies to: MD Karen West, JANELL Greenwood, DO~ HPI DATE OF EXAMINATION: 11/21/23 CHIEF COMPLAINT: Chest pain, sob, N/V/D, fever, cough HISTORY OF PRESENT ILLNESS: Ms. Dubose is a 63-year-old female that presented to the [facility] emergency room for complaints of chest pain, shortness of breath, fever, N/V/D, and cough. She states her symptoms began saturday night and worsened last night. She reports fever, chills, aching all over, headache, coughing so bad that she vomits. She states she can not eat anything, had sips of sprite yesterday. She does report a history of AMI, CABG-3 vessel, T2DM, HTN. EKG at [facility] emergency room shows A-fib with RVR. She was notedto be hypoxic 86% on room air, nasal cannula was applied. ABG was performed?pH 7.289, pCO2 46.9, pO2 62.1, bicarb 22.5 on 3 L nasal cannula. CBC was unremarkable. CMP was also unremarkable. Troponin was drawn 76.4, NT?pro?B 14,375. Lactate 2.7. Chest x-ray shows mild cardiomegaly coags were unremarkable. Patient was started on a heparin drip. She was given a 4000 unitbolus. Respiratory panel positive for influenza A. Medicated with hydromorphone, 1 L saline bolus, DuoNeb, Levaquin, Toradol, 125 Solu-Medrol, Zofran Tamiflu. She follows with [facility] cardiology however they had no beds available. She agreed to transfer to the closest facility which is [facility]. Patient was transferred here to the progressive floor under the care of hospitalist team. Review of Systems Review of Systems Review of systems: A 10 point review of systems was obtained, negative unless noted in the HPI or below. [facility] Medical History (Updated 11/21/23 @ 03:40 by Karen Mays APRN) Myocardial infarction Hypertension Diabetes Surgical History (Updated 11/21/23 @ 03:31 by Karen Mays APRN) History of back surgery Hx of CABG 3 vessel at [facility] Family History (Updated 11/21/23 @ 03:31 by Karen Mays APRN) Mother Diabetes Paternal Grandfather Pancreatic cancer Daughter Diabetes Social History Marital Status: Smoking Status: Former smoker Tobacco Type: cigarettes Substance Use Type: None Meds Medications and Allergies Allergies No Known Allergies Allergy (Verified 11/21/23 03:47) Exam Physical Exam Vital Signs: Temp Pulse Resp BP Pulse Ox O2 Del Method O2 Flow Rate 97.8 F 83 24 147/96 H 93 L Nasal Cannula 4 11/21/23 02:28 11/21/23 02:28 11/21/23 02:28 11/21/23 02:28 11/21/23 02:28 11/21/23 02:28 11/21/23 02:28 Narrative: CONST- Appears well -developed, Ill appearing, Morbidly obese- BMI 34.4 HEAD - Normocephalic and atraumatic EENT-Sclera nonicteric, conjunctive are non-erythemic, dry oral mucosa, pharynx clear NECK-Supple, no cervical lymphadenopathy CARDIAC-normal rate, irregular rhythm, S1 & S2. PULM-diminished, insp wheeze to right posterior base, 4L NC, no accessory muscleuse, harsh, nonproductive cough noted ABD - Soft. Bowel sounds are normal. No distention. No tenderness EXTREM-no edema BLE calves, nontender SKIN- W/D good turgor MS- MAEX4 spontaneously with equal with equal strength-generalized weakness NEURO- A&Ox3 speech clear and tongue midline, equal facial symmetry, no focal motor deficits PSYCH-Mood, affect, and behavior appropriate Assessment & Plan Assessment/Plan (1) Acute hypoxic respiratory failure: (2) Shortness of breath: (3) NSTEMI (non-ST elevated myocardial infarction): (4) Chest pain: (5) Atrial fibrillation: (6) Diabetes: (7) Hypertension: (8) Influenza A: (9) Headache: Plan Acute hypoxic respiratory failure?SpO2 was 86% on room air upon arrival to [facility] emergency room, 4 L nasal cannula applied Shortness of breath ? Continue oxygen, keep SpO2 greater than 90% ? Albuterol nebulizer as needed NSTEMI Chest pain?patient believes she has chest pain due to her coughing New onset A-fib?rate controlled ? Consult cardiology ? Echo in a.m. ? Stat PTT, PT/INR, BMP, ECG ? Resume heparin drip, ACS protocol, no initial bolus ? Metoprolol 25 mg x 1 now ? Low-dose aspirin daily Influenza A Headache ? Continue Tamiflu ? Mucinex twice daily ? Tessalon as needed ? Acetaminophen as needed ? 2 g mag sulfate IV x 1 Chronic conditions?resume home meds as appropriate when confirmed HTN T2DM?fingersticks ACHS, SSIC, A1c in am HLD-resume statin, lipid profile in am DVT PPx-SCDs, heparin drip Diet order-n.p.o. except ice chips and meds CODE STATUS-full code I personally saw this patient on the day of the encounter, reviewed the history,performed the back elements of the exam, formulated the plan of care and confirmed the Nurse Practitioner's assessment and plan. - Isaac Greenwood DO IP vs OBS Justification Based on differential dx, clinical care plan, and risk of adverse events, if untreated, in my clinical judgement this patient requires an acute care setting as: INPATIENT because of an expectation of an over 2 midnight stay. Estimated length of stay (# of days): 3 Documented By: Karen Mays APRN 11/21/23 0301 Signed By: <Electronically signed by JANELL Mays> 11/21/23 0351 <Electronically signed by Isaac Greenwood DO> 11/21/23 0531 [facility] Work Phone: 1(275) 131-159707-28-2023 NoteSubjective Patient ID: Melissa Dubose is a 62 y.o. female who presents for Follow-up. HPI Review of Systems All other systems reviewed and are negative. Objective There were no vitals taken for this visit. Physical Exam Assessment/Plan No diagnosis found. No orders of the defined types were placed in this encounter. No results found for this or any previous visit (from the past 36 hour(s)). No follow-ups on file.[facility]07-28-2023 Note Cardiology Clinic Note Subjective Melissa Dubose is a 62 y.o. year old female past medical history of coronary artery disease status post 3vCABG (patent grafts on angiography in 2017), hypertension, hyperlipidemia, and type 2 diabetes mellitus seen in follow-up. Patient Active Problem List Diagnosis Coronary arteriosclerosis Edema of lower extremity Hypertensive disorder Family History Problem Relation Name Age of Onset Diabetes Mother Atrial fibrillation Mother Hyperlipidemia Mother Kidney disease Sister Heart attack Maternal Grandmother Stroke Maternal Grandmother Social History Tobacco Use Smoking status: Former Types: Cigarettes Smokeless tobacco: Never Substance Use Topics Alcohol use: Not Currently Drug use: Never HPI Melissa Dubose is a 62 y.o. year old female past medical history of coronary artery disease status post 3vCABG (patent grafts on angiography in 2016), hypertension, hyperlipidemia, and type 2 diabetes mellitus seen in follow-up. Visit of 12/25/2017: Most recently she was admitted to [facility] with uncontrolled BP and chest pain and negative enzymes. Her medications were increased and ultimately imdur was increased to 120 mg daily and lisinopril to 40 mg daily. Her blood pressure still is elevated. She has been feeling tired all the time. She has had no syncope. She has sharp chest pain that radiates to the right side in the past month. She has no shortness of breath. She reports little palpitations. I had stopped plavix since it has been 1 year since her NSTEMI presentation. Update 03/31/2018: She has been well and stable. No recurrence of syncope. No angina. No significant dyspnea. She has been trying to stay physically active. Occasional palpitations. Update 10/09/2018: She is seen in follow up. In April of 2018 she was at a restaurant and while waiting for food she felt like she was going to pass out. She apparently was lethargic. She had a low blood pressure and CLARY. The HCTZ was stopped. She says that she had a similar episode about 2 months later but she did not go to the hospital, she had blood pressure 50's systolic. She sat for a while and then improved. She never had syncope. Update 03/10/2019: She is seen in follow-up. She has been doing well. She has no symptoms of chest pain or shortness of breath. No dizziness or lightheadedness. No recurrence of any presyncopal events. She has no claudications. She says she feels very good. She has been taking her medications. The atorvastatin does not appear in her bag of medicine. She is not sure whether she is taking it or not. Update 06/15/2020: She is seen in follow up via telemedicine. She has been well. No chest pain. No dyspnea. She has mild ankle swelling. She is keeping physically active with no issues. No palpitations. No syncope. Dr Mccormack is working on adjusting diabetes meds. Otherwise no issues. Blood testing 01/24/2020: Hb 14.4, Platelet 189, K 4.0, Cr 1.01, BUN 14. Update: 04/05/2023 She is seen in annual follow-up She is doing well without acute concerns Has right ankle edema that resolves with massaging Denies chest pain, dyspnea, or palpitations Review of Systems Cardiovascular: Positive for leg swelling. Negative for chest pain, dyspnea on exertion, irregular heartbeat, near-syncope, orthopnea, palpitations, paroxysmal nocturnal dyspnea and syncope. Objective Visit Vitals BP 120/83 (BP Location: Left arm, Patient Position: Sitting, BP Cuff Size: Adult) Pulse 77 Resp 11 Ht 1.778 m (5' 10 ) Wt 123 kg (270 lb 12.8 oz) SpO2 95% BMI 38.86 kg/m??? Smoking Status Former BSA 2.46 m??? Physical Exam General: Awake, alert, NAD Pulm: Diminished in all lung ohara Cards: Regular rate and rhythm, S1, S2. No S3 or S4 gallop. Murmur: none Extr: Lower extremity edema: None. Skin: warm, dry, well perfused Neuro: A&Ox3, No gross deficits Allergies Allergies Allergen Reactions Oxycodone-Acetaminophen Medications Current Outpatient Medications: atorvastatin (Lipitor) 20 mg tablet, Take 1 tablet by mouth in the morning., Disp: , Rfl: glimepiride (Amaryl) 4 mg tablet, take 1 tablet by mouth every morning after BREAKFAST OR FIRST MAIN MEAL OF THE DAY, Disp: , Rfl: ibuprofen 800 mg tablet, , Disp: , Rfl: isosorbide mononitrate ER (Imdur) 60 mg 24 hr tablet, Take 90 mg by mouth in the morning., Disp: , Rfl: lisinopril 40 mg tablet, Take 40 mg by mouth in the morning., Disp: , Rfl: metFORMIN (Glucophage) 500 mg tablet, Take 500 mg by mouth., Disp: , Rfl: metoprolol tartrate (Lopressor) 50 mg tablet, Take 50 mg by mouth with breakfast and with evening meal., Disp: , Rfl: nabumetone (Relafen) 500 mg tablet, Take 500 mg by mouth in the morning and at bedtime., Disp: , Rfl: pantoprazole (ProtoNix) 40 mg EC tablet, take 1 tablet by mouth once daily, Disp: 90 tablet, Rfl: 0 pioglitazone (Actos) 30 mg tablet, Take 30 mg by mouth in (more content not included)...[facility] Onset Date Resolution Status Acute hypoxic respiratory failure acute Atrial fibrillation acute Chest pain acute [id number] acute Diabetes acute Headache acute HFrEF (heart failure with reduced ejection fraction) acute Hypertension acute Influenza A acute Myocardial injury acute NSTEMI (non-ST elevated myocardial infarction) acute S/P CABG (coronary artery bypass graft) acute Shortness of breath acute [facility] Work Phone: Summary Purpose Family History No Family History Records Found Relationship Condition Age at Onset Recorded Date/T carroll Not Specified Diabetes mellitus Unknown Not Specified Malignant neoplasm of pancreas Unknown daughter Diabetes mellitus Unknown Advance Directives No Advanced Directives Records Found Advance Directive Response Recorded Date/ Time Advance Directives No November 20, 024 1:29am Chief Complaint and Reason for Visit Chief Complaint New onset Afib, NSte mi New onset Afib, NStemi New onset Afib, NStemi Reason for Visit Acute hypoxic respir atory failure Atrial fibrillation Chest pain [id number] Diabetes Headache HFrEF (heart failure with reduced ejection fraction) Hypertension Influenza A Myocardial injury NSTEMI (non-ST elevated myocardial infarction) S/P CABG (coronary artery bypass graft) Shortness of breath Additional Source Comments INFORMATION SOURCE (unrecogn ized section and content) DATE CREATED AUTHOR 03/05/2018 [facility] DATE CREATED AUTHOR AUTHOR'S ORGANIZ ATION 01/24/2023 [facility] DATE CREATED AUTHOR AUTHOR'S ORGANIZ ATION 12/18/2023 [facility] DATE CREATED AUTHOR AUTHOR'S ORGANIZ ATION 02/20/2024 [facility] Care Teams (unrecognized sec tion and content) Team Status: Active Member Role Status Dates Madison Mccormack MD Primary Care Provider Active Team Status: Inactive Member Role Status Dates Madison Mccormack MD Primary Care Provider Active Start: November 21, 2023 End: November 25, 2023 Isaac Greenwood DO Admit Provider Active Start: November 21, 2023 End: November 25, 2023 Johnny Bernal MD Attending Provider Active St art: November 21, 2023 End: November 25, 2023 Team Status: Active Member Role Status Dates Madison Mccormack MD Primary Care Provider Active Start: November 21, 2023 Isaac Greenwood DO Admit Provider, Other Provider Act roberto Start: November 21, 2023 Karen Mays APRN Attending Provider Active S tart: November 21, 2023 Team Status: Active Member Role Status Dates Madison Mccormack MD Primary Care Provider Active Start: November 21, 2023 Isaac Greenwood DO Admit Provider Active Start: November 21, 2023 Winter Norris MD Other Provider Active Start: November 21, 2023 Jaimie Lopez RN Other Provider Active Star t: November 21, 2023 Zach Jones MD Other Provider Active Start: M piyush 2023 Justine Jacobo MD Attending Provider, Other Provider Active Start: November 21, 2023 Jayne Vallecillo MD Other Provider Active Start: November 21, 2023 FOR RECORDS PERTAINING TO PATIENTS WHO ARE OR HAVE BEEN ENROLLED IN A CHEMICAL DEPENDENCY/SUBSTANCEABUSE PROGRAM, SOME INFORMATION MAY BE OMITTED. This clinical summary was aggregated from multiple sources. Caution should be exercised in using it in the provision of clinical care. This summary normalizes information from multiple sources, and as a consequence, information in this document may materially change the coding, format and clinical context of patient data. In addition, data may be omitted in some cases. CLINICAL DECISIONS SHOULD BE BASED ON THE PRIMARY CLINICAL RECORDS. [facility]. provides no warranty or guarantee of the accuracy or completeness of information in this document.
[2024-03-30 14:31] LABS: Bilirubin Urine NEGATIVE (NEGATIVE); Blood Urine SMALL (NEGATIVE); Clarity Urine CLEAR (CLEAR); Color Urine LT. YELLOW (YELLOW); Glucose Urine UA >=1000 mg/dL (NEGATIVE); Ketones Urine NEGATIVE (NEGATIVE); Leukocyte Esterase Urine NEGATIVE (NEGATIVE); Nitrite Urine NEGATIVE (NEGATIVE); Protein Urine NEGATIVE (NEG/TRACE); Urobilinogen Urine 0.2 EU/dL (0.2-1.0)
[2024-03-30 14:51] LABS: Bacteria Urine NONE SEEN #/HPF (NONE SEEN); Cast Seen? NONE SEEN #/LPF (NONE SEEN); Crystals Seen? None Seen #/HPF (None Seen); Mucus Urine NONE SEEN (NONE SEEN); RBC Urine 20-50 #/HPF (0-2); Squamous Epithelial Cell Urine RARE #/LPF (NONE/RARE); WBC Urine 0-2 #/HPF (NONE SEEN)
== END 2024-03-30 13:33 | disposition home or self-care (01) ==
LOC: LAB 13:36
PROVIDERS: PCP Family Medicine; Visit Provider Family Medicine
DX: R31.0 Gross hematuria (principal)
CPT/HCPCS: 81001; 87086

== ENCOUNTER 2024-04-27 12:47 | Outpatient (OUT) | payer MEDICARE, SELFPAY ==
--- NOTE | 2024-04-27 13:00 | CA_ITS ---
Patient Name: KAYLA HEATH MR#: [id number] : 1960 Exam Date: 04/27/2024 Ordering Doctor: DR JUSTINE PARKS M.D. ECHOCARDIOGRAM REPORT PROCEDURE: CA ECHO DOPPLER COMPLETE INDICATIONS: CHF with low ejection fraction, CABGx3, OH, diabetes COMPARISON: None. DESCRIPTION: COMPLETE ECHOCARDIOGRAM Real-time transthoracic echocardiography with 2D, M-mode, spectral and color flow Doppler performed. QUALITY: Technical quality was good. LEFT VENTRICLE: Moderate to severe dilatation with eccentric left ventricular hypertrophy. Systolic function is difficult to assess due to poor endocardial border definition but appears moderately to severely reduced. There is global hypokinesis. LV EF: Moderately to severely reduced left ventricular ejection fraction, (25-30%). DIASTOLIC: ATRIAL SEPTUM: Possible PFO vs ASD. LEFT ATRIUM: Mild chamber dilatation. RIGHT ATRIUM: Mild chamber dilatation. RIGHT VENTRICLE: Normal chamber size. Normal right ventricular systolic function. TRICUSPID VALVE: Normal mobility and thickness. No stenosis with no regurgitation. MITRAL VALVE: Normal mobility and thickness. No evidence of mitral valve stenosis. There is no mitral annular calcification. Trivial mitral regurgitation. AORTIC VALVE: Normal trileaflet appearance. No visible sclerosis. Normal leaflet mobility. No evidence of aortic valve stenosis. No aortic regurgitation. AORTIC ROOT: Normal diameter and appearance. PULMONIC VALVE: Not well visualized. No regurgitation. PERICARDIUM: No evidence of pericardial effusion. IVC: Collapses with inspirations. IVC is dilated (2.2 cm) PLEURA: CONCLUSION: 1. Moderate to severely dilated left ventricle with moderately to severely reduced systolic function. LVEF is estimated at 25 to 30%. 2. Normal right ventricular size and systolic function. 3. Mild biatrial dilatation. 4. No significant valvular dysfunction. 5. No pericardial effusion. 6. Poor endocardial border definition precludes accurate assessment of LV systolic function. It is recommended to obtain a study with echocardiographic contrast for enhancement of imaging accuracy. Adult Echocardiography Procedure Report Left Ventricle LVEDD (3.7 - 5.6 cm): 6.11 cm LVESD (2.2 - 4.0 cm): 5.53 cm LVIVS thickness (0.6 - 1.2 cm): 1.06 cm LVPW thickness (0.5 - 1.0 cm): 1.27 cm e': 0.05 m/s E - e': 7.57 LVOT Max Gradient: 1.53 mm[Hg] LVOT Area (cm2): 0.62 m/s Peak Velocity (LVOT): 0.62 m/s Mean Velocity (LVOT): 0.42 m/s LVOT Diameter 2.38 cm Left Atrium LA Volume Index (2D A2C): 38.18 ml/m2 Left Atrium Systolic Dimension: 4.56 cm Mitral Valve MV E to A Ratio: 0.45, 0.55 Mitral Valve A-Wave Peak Velocity: 0.78 m/s Mitral Valve E-Wave Peak Velocity: 0.39 m/s Right Ventricle Aorta AO Root Diam: 2.81 cm Ascending Ao Diam: 2.84 cm Aortic Valve AoV Area (Peak Liam): 4.40 cm2, 4.40 cm2 AoV Area (VTI): 4.23 cm2, 4.23 cm2 Peak Velocity(Antegrade Flow): 0.63 m/s Peak Gradient(Antegrade Flow): 1.56 mm[Hg] Mean Velocity(Antegrade Flow): 0.42 m/s Mean Gradient(Antegrade Flow): 0.79 mm[Hg] Velocity Time Integral: 13.46 cm Tricuspid Valve Pulmonic Valve Peak Velocity: 0.82 m/s Peak Gradient: 2.54 mm[Hg], 2.90 mm[Hg] Right Atrium Dictated by: Justine Parks M.D. on 04/27/2024 at 18:15 Approved by: Justine Parks M.D. on 04/27/2024 at 18:26
--- OUTSIDE RECORDS SUMMARY | 2024-04-27 13:10 | XMS_ITS | CCD ---
Author Organization [facility] Care Team Providers Care Blister Pack Operator Name Role Phone PHYSICIAN, DEFAULT Unavailable Unavailable [...] Unavailable MD Madison Mccormack Primary Care Provider [phone] DO Isaac Greenwood Admit Provider [phone] MD Johnny Bernal Attending Provider Jaimie Lopez [...] oxyCODONE; Translations: [OXYCODONE-ACETAM INOPHEN] Drug Allergy 6 [facility] Repository (1 source) acetaminophen / oxyCODONE Drug Allergy 6 [facility] Repository (1 source) No Known Allergies; Translations: [No Known Allergies] Propensity to adverse reactions (disorder) 7 [facility] Rep[facility] Medications Current Medications Medication Drug Class(es) [...] disease (9 sources) Atherosclerotic heart disease of [place] coronary artery without angina pectoris; Translations: [Coronary [...] UNCOMP] Onset: 04-11-2022 Chronic Unclassified (1 source) intermediate designer (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) use of oral hypoglycemic drugs; Translations: [REJOGGER (CURRENT) USE OF ORAL HYPOGLYCEMIC DRUGS] Onset: [...] Onset: 04-11-2022 Episodic Other aftercare (3 sources) intermediate designer (current) use of aspirin; Translations: [intermediate designer (current) use of antithrombotics/anti platelets] Onset: 05-10-2017 Episodic Other aftercare (1 source) Other shelter (current) drug therapy; Translations: [OTH REJOGGER CURRENT DRUG THERAPY] Onset: 04-11-2022 Episodic Other [...] Range Facility Office Visiton 02-19-2024 Follow-up visit [id number] Chung Dubose 1960 F Date Provider Department Center 02/19/2024 [id number] WHITE Family History Problem Relation Age of Onset Diabetes Mother Atrial fibrillation Mother Hyperlipidemia Mother Kidney disease Sister Heart attack Maternal Grandmother Stroke Maternal Grandmother Family Status - Relation Status Age at Mother Sister Maternal Grandmother Level of Service:81753 NM OFFICE/OUTPATIENT ESTABLISHED MOD MDM 30 MIN Normal [facility] ANESon 01-17-2024 ANES -------- Attestation signed by [...] Procedure Information Date/Time: 01/17/24904 Procedure: Cardioversion/defibrillation Location: [facility] CLINICAL TECHNICIAN HOLDING ROOM / [facility]ASCULAR [facility] (Cath) Providers: Justine Grimes MD Clinical information reviewed: Allergies Meds OB Status Physical Exam Airway Mallampati: III TM distance: >3 FB Neck ROM: full Cardiovascular Rhythm: regular Rate: normal Dental Pulmonary Abdominal Anesthesia Plan ASA 3 Anesthetic plan and risks discussed with patient. Use of blood products discussed with patient who. Plan discussed with attending. Additional Equipment Requests Normal [facility] HPon 01-17-2024 -------- Attestation signed by Ria [...] were addressed and answered. Jocelin Barajas MD Blasting Worker - PGY5 [facility] NURSNOTEon 01-17-2024 NURSJULITO RN educated pt on d/ c instructions. RN encouraged pt to voice any questions or concerns. Pt verbalizes no questions or concerns at this time. [facility] NURSNOTE Patient passed swall ow test. No issues. [facility] HPon 12-27-2023 [facility] Cardiology - [facility] Subjective Melissa Dubose is a [...] ventricular response. She underwent cardiac catheterization at [facility] which showed patent bypass grafts. She was [...] wave abn (more content not included)... Normal [facility] Office Visiton 12-27-2023 Follow-up visit [id number] Chung Dubose 1960 Date Provider Department Center 12/27/2023 JUSTINE NOLAN DEMETRIS Parra Family History Problem Relation Age of Onset Diabetes Mother Atrial fibrillation Mother Hyperlipidemia Mother Kidney disease Sister Heart attack Maternal Grandmother Stroke Maternal Grandmother Family Status - Relation Status Age at Mother Sister Maternal Grandmother Level of Service:72868 NM OFFICE/OUTPATIENT ESTABLISHED HIGH MDM 40 MIN Reason for Visit and Comments: Follow-up [314816] - Follow up per Al [facility] Office Visiton 12-11-2023 Follow-up visit [id number] Chung Dubose 1960 Date Provider Department Center 12/11/2023 TREVIN COTTO Family History Problem Relation Age of Onset Diabetes Mother Atrial fibrillation Mother Hyperlipidemia Mother Kidney disease Sister Heart attack Maternal Grandmother Stroke Maternal Grandmother Family Status - Relation Status Age at Mother Sister Maternal Grandmother Level of Service:40770 NM OFFICE/OUTPATIENT ESTABLISHED HIGH MDM 40 MIN Reason for Visit and Comments: Hospital Follow-up [832] Congestive Heart Failure [127] Coronary Artery Disease [187] Atrial Fibrillation [80] Normal [facility] Glucose Poct Glucometerson 0 11-25-2023 Glucose [Mass/Vol] 255 mg/dL Normal [facility] Comment on above: Result Comment: [facility] Glucose Reference Range is dependent on time and content of last meal. Glucose of more than 200 mg/dL in a nonstressed, ambulatory subject supports the diagnosis of Diabetes Mellitus. PERFORMED BY: [place] [address] PATHOLOGIST DAY CARE CENTER DIRECTOR SUNNI CH M.D. Performed By: #### P T, PTT #### [facility] [address] Basic Metabolic Panelon - Anion gap [Moles/Vol] 10.9 mmol/L Normal 6.0-15.0 [facility] Comment on above: Performed By: #### P T, PTT #### [address] Calcium [Mass/Vol] 9.0 mg/dL Normal 8.6-10.3 [facility] Comment on above: Performed By: #### P T, PTT #### [facility] [address] [place] [address] [place] Chloride [Moles/Vol] 100 mmol/L Normal 98-107 [facility] Comment on above: Performed By: #### P T, PTT #### [facility] [address] [place] [address] [place] CO2 [Moles/Vol] 30.8 mmol/L Normal 21.0-31.0 [facility] Comment on above: Performed By: #### P T, PTT #### [facility] [address] [place] [address] [place] Creatinine [Mass/Vol] 0.91 mg/dL Normal 0.60-1.20 [facility] Comment on above: Performed By: #### P T, PTT #### [facility] [address] [place] [address] [place] Creatinine Clr Calc Pharmacy 85.70 Normal [facility] Comment on above: Result Comment: PERF ORMED BY: [place] [address] PATHOLOGIST DAY CARE CENTER DIRECTOR SUNNI CH M.D. Performed By: #### P T, PTT #### [place] [address] [place] GFR/1.73 sq M.predicted MDRD (S/P/Bld) [Vol rate/Area] mL/min/{1.73_m2} Normal [facility] Comment on above: Performed By: #### P T, PTT #### [address] Glucose [Mass/Vol] 259 mg/dL Significant change up 70-100 [facility] Comment on above: Result Comment: [facility] Glucose Reference Range is dependent on time and content of last meal. Glucose of more than 200 mg/dL in a nonstressed, ambulatory subject supports the diagnosis of Diabetes Mellitus. ADA recommended reference range Performed By: #### P T, PTT #### [address] Potassium [Moles/Vol] 3.7 mmol/L Normal 3.5-5.1 [facility] Comment on above: Performed By: #### P T, PTT #### [address] Sodium [Moles/Vol] 138 mmol/L Normal 136-145 [facility] Comment on above: Performed By: #### P T, PTT #### [place] [address] [place] Urea nitrogen [Mass/Vol] 23 mg/dL Normal 7-25 [facility] Comment on above: Performed By: #### P T, PTT #### [place] [address] [place] Calcium [Mass/volume] in Ser um or PlasmaOrdered By: Winter Norris on 11-24-2023 Calcium [Mass/Vol] 9.0 mg/dL 8.6-10.3 [facility] Carbon dioxide, total [Moles /volume] in Serum or PlasmaOrdered By: Winter Norris on 11-24-2023 CO2 [Moles/Vol] 30.8 mmol/L 21.0-31.0 [facility] Chloride [Moles/volume] in S mehreen or PlasmaOrdered By: Winter Norris on 11-24-2023 Chloride [Moles/Vol] 100 mmol/L 98-107 [facility] Creatinine [Mass/volume] in Serum or PlasmaOrdered By: Winter Norris on 11-24-2023 Creatinine [Mass/Vol] 0.91 mg/dL 0.60-1.20 [facility] Glucose Glucometer (BldC) [M ass/Vol]Ordered By: Winter Norris on 11-24-2023 Glucose [Mass/Vol] 271 mg/dL [facility] Comment on above: Random Glucose Refer ence Range is dependent on time and content of last meal. Glucose of more than 200 mg/dL in a nonstressed, ambulatory subject supports the diagnosis of Diabetes Mellitus. Glucose Poct Glucometerson 0 11-24-2023 Glucose [Mass/Vol] 271 mg/dL Normal [facility] Comment on above: Result Comment: [facility] Glucose Reference Range is dependent on time and content of last meal. Glucose of more than 200 mg/dL in a nonstressed, ambulatory subject supports the diagnosis of Diabetes Mellitus. PERFORMED BY: [place] [address] PATHOLOGIST DAY CARE CENTER DIRECTOR SUNNI CH M.D. Performed By: #### G LULS #### Point of Care testing , Glucose [Mass/Vol] 337 mg/dL Normal [facility] Comment on above: Result Comment: [facility] Glucose Reference Range is dependent on time and content of last meal. Glucose of more than 200 mg/dL in a nonstressed, ambulatory subject supports the diagnosis of Diabetes Mellitus. PERFORMED BY: [place] [address] PATHOLOGIST DAY CARE CENTER DIRECTOR SUNNI CH M.D. Performed By: #### P T, PTT #### [address] Glucose [Mass/Vol] 238 mg/dL Normal [facility] Comment on above: Result Comment: [place] Glucose Reference Range is dependent on time and content of last meal. Glucose of more than 200 mg/dL in a nonstressed, ambulatory subject supports the diagnosis of Diabetes Mellitus. PERFORMED BY: [place] [address] PATHOLOGIST DAY CARE CENTER DIRECTOR SUNNI CH M.D. Performed By: #### P T, PTT #### [facility] [address] [place] [address] Glucose [Mass/Vol] 173 mg/dL Normal [facility] Comment on above: Result Comment: [facility] Glucose Reference Range is dependent on time and content of last meal. Glucose of more than 200 mg/dL in a nonstressed, ambulatory subject supports the diagnosis of Diabetes Mellitus. PERFORMED BY: [place] [address] PATHOLOGIST DAY CARE CENTER DIRECTOR SUNNI CH M.D. Performed By: #### P T, PTT #### [facility] [address] [place] [address] Glucose [Mass/volume] in Ser um or PlasmaOrdered By: Winter Norris on 11-24-2023 Glucose [Mass/Vol] 259 mg/dL 70-100 [facility] Comment on above: Delta: 133 on -[id number] recommended reference rangeRandom Glucose Reference Range is dependent on time and content of last meal. Glucose of more than 200 mg/dL in a nonstressed, ambulatory subject supports the diagnosis of Diabetes Mellitus. No Panel InformationOrdered By: Winter Norris on 11-24-2023 Estimated GFR (CKD-EPI) > 60.0 mL/Min [facility] Creatinine Clearance (Chem 85.70 [facility] Potassium [Moles/volume] in Serum or PlasmaOrdered By: Winter Norris on 11-24-2023 Potassium [Moles/Vol] 3.7 mmol/L 3.5-5.1 [facility] Serum or plasma anion gap de terminationOrdered By: Winter Norris on 11-24-2023 Anion gap [Moles/Vol] 10.9 mmol/L 6.0-15.0 [facility] Sodium [Moles/volume] in Ser um or PlasmaOrdered By: Winter Norris on 11-24-2023 Sodium [Moles/Vol] 138 mmol/L 136-145 [facility] Urea nitrogen [Mass/volume] in Serum or PlasmaOrdered By: Winter Norris on 11-24-2023 Urea nitrogen [Mass/Vol] 23 mg/dL 7-25 [facility] Basic Metabolic Panelon 11-07 Anion gap [Moles/Vol] 11.8 mmol/L Normal 6.0-15.0 e [facility] Comment on above: Performed By: #### B MP, CBC #### [facility] [address] Calcium [Mass/Vol] 9.2 mg/dL Normal 8.6-10.3 [facility] Comment on above: Performed By: #### B MP, CBC #### [facility] [address] Chloride [Moles/Vol] 103 mmol/L Normal 98-107 [facility] Comment on above: Performed By: #### B MP, CBC #### [facility] [address] CO2 [Moles/Vol] 29.1 mmol/L Normal 21.0-31.0 [facility] Comment on above: Performed By: #### B MP, CBC #### [facility] [address] [place] [address] Creatinine [Mass/Vol] 0.94 mg/dL Normal 0.60-1.20 [facility] Comment on above: Performed By: #### B MP, CBC #### [facility] [address] [place] [address] [place] Creatinine Clr Calc Pharmacy 82.97 Normal [facility] Comment on above: Result Comment: PERF ORMED BY: [place] [address] PATHOLOGIST DAY CARE CENTER DIRECTOR SUNNI CH M.D. Performed By: #### B MP, CBC #### [address] GFR/1.73 sq M.predicted MDRD (S/P/Bld) [Vol rate/Area] mL/min/{1.73_m2} Normal [facility] Comment on above: Performed By: #### B MP, CBC #### [address] Glucose [Mass/Vol] 133 mg/dL High 70-100 [facility] Comment on above: Result Comment: [facility] Glucose Reference Range is dependent on time and content of last meal. Glucose of more than 200 mg/dL in a nonstressed, ambulatory subject supports the diagnosis of Diabetes Mellitus. ADA recommended reference range Performed By: #### B MP, CBC #### [address] Potassium [Moles/Vol] 3.9 mmol/L Normal 3.5-5.1 [facility] Comment on above: Performed By: #### B MP, CBC #### [address] Sodium [Moles/Vol] 140 mmol/L Normal 136-145 [facility] Comment on above: Performed By: #### B MP, CBC #### [address] Urea nitrogen [Mass/Vol] 23 mg/dL Normal 7-25 [facility] Comment on above: Performed By: #### B MP, CBC #### [place] [address] [place] Basophils Auto (Bld) [#/Vol] Ordered By: Winter Norris on 11-23-2023 Basophils (Bld) [#/Vol] 0.0 10*3/uL 0.0-0.2 [facility] Basophils/100 WBC Auto (Bld) Ordered By: Winter Norris on 11-23-2023 Basophils/100 WBC (Bld) 0.1 % . [facility] Complete Blood Count Auto Di ffon 11-23-2023 Basophils (Bld) [#/Vol] 0.0 10*3/uL Normal 0.0-0.2 [facility] Comment on above: Result Comment: PERF ORMED BY: [place] [address] PATHOLOGIST DAY CARE CENTER DIRECTOR SUNNI CH M.D. Performed By: #### B MP, CBC #### [address] Basophils/100 WBC (Bld) 0.1 % Normal . [facility] Comment on above: Performed By: #### B MP, CBC #### [address] Eosinophils (Bld) [#/Vol] 0.0 10*3/uL Normal 0.0-0.45 [facility] Comment on above: Performed By: #### B MP, CBC #### [address] Eosinophils/100 WBC (Bld) 0.0 % Normal . [facility] Comment on above: Performed By: #### B MP, CBC #### [address] Erythrocyte distribution width (RBC) [Ratio] 15.3 % Normal 11.9-15.3 [facility] Comment on above: Performed By: #### B MP, CBC #### [address] Hematocrit (Bld) [Volume fraction] 40.4 % Normal 34.0-46.4 [facility] Comment on above: Performed By: #### B MP, CBC #### [address] Hemoglobin (Bld) [Mass/Vol] 13.1 g/dL Normal 11.8-15.4 [facility] Comment on above: Performed By: #### B MP, CBC #### [address] Lymphocytes (Bld) [#/Vol] 1.7 10*3/uL Normal 1.00-4.8 [facility] Comment on above: Performed By: #### B MP, CBC #### [address] Lymphocytes/100 WBC (Bld) 17.7 % Normal . [facility] Comment on above: Performed By: #### B MP, CBC #### [address] MCH (RBC) [Entitic mass] 28.2 pg Normal 24.7-34.3 [facility] Comment on above: Performed By: #### B MP, CBC #### [address] MCV (RBC) [Entitic vol] 86.9 fL Normal 80-100 [facility] Comment on above: Performed By: #### B MP, CBC #### [address] Mean Corpuscular HGB Conc 32.4 g/dL Normal 32.0-35.0 [facility] Comment on above: Performed By: #### B MP, CBC #### [address] Monocytes (Bld) [#/Vol] 0.9 10*3/uL High 0.0-0.8 [facility] Comment on above: Performed By: #### B MP, CBC #### [address] Monocytes/100 WBC (Bld) 9.5 % Normal . [facility] Comment on above: Performed By: #### B MP, CBC #### [address] Neutrophils (Bld) [#/Vol] 7.0 10*3/uL Normal 1.8-7.7 [facility] Comment on above: Performed By: #### B MP, CBC #### [address] Neutrophils/100 WBC (Bld) 72.7 % Normal . [facility] Comment on above: Performed By: #### B MP, CBC #### [address] NRBC% 0.1 /100{WBC} Normal 0-0.5 [facility] Comment on above: Performed By: #### B MP, CBC #### [address] Platelet mean volume (Bld) [Entitic vol] 8.5 fL Normal 6.3-10.7 [facility] Comment on above: Performed By: #### B MP, CBC #### [address] Platelets (Bld) [#/Vol] 203 10*3/uL Normal 150-450 [facility] Comment on above: Performed By: #### B MP, CBC #### [address] RBC (Bld) [#/Vol] 4.65 10*6/uL Normal 3.60-5.00 [facility] Comment on above: Performed By: #### B MP, CBC #### [address] WBC (Bld) [#/Vol] 9.6 10*3/uL Normal 3.8-11.6 [facility] Comment on above: Performed By: #### B MP, CBC #### [address] Eosinophils Auto (Bld) [#/Vo l]Ordered By: Winter Norris on 11-23-2023 Eosinophils (Bld) [#/Vol] 0.0 10*3/uL 0.0-0.45 [facility] Eosinophils/100 WBC Auto (Bl d)Ordered By: Winter Norris on 11-23-2023 Eosinophils/100 WBC (Bld) 0.0 % . [facility] Erythrocyte distribution wid th Auto (RBC) [Ratio]Ordered By: Winter Norris on 11-23-2023 Erythrocyte distribution width (RBC) [Ratio] 15.3 % 11.9-15.3 [facility] Glucose Poct Glucometerson 0 11-23-2023 Glucose [Mass/Vol] 313 mg/dL Normal [facility] Comment on above: Result Comment: [place] Glucose Reference Range is dependent on time and content of last meal. Glucose of more than 200 mg/dL in a nonstressed, ambulatory subject supports the diagnosis of Diabetes Mellitus. PERFORMED BY: [place] [address] PATHOLOGIST DAY CARE CENTER DIRECTOR SUNNI CH M.D. Performed By: #### P T, PTT #### [place] [address] [place] Commemt1 Glu2: Cleaned Meter Normal [facility] Comment on above: Result Comment: PERF ORMED BY: [place] [address] PATHOLOGIST DAY CARE CENTER DIRECTOR SUNNI CH M.D. Performed By: #### B MP, CBC #### [place] [address] [place] Glucose [Mass/Vol] 307 mg/dL Normal [facility] Comment on above: Result Comment: [place] [facility] Glucose Reference Range is dependent on time and content of last meal. Glucose of more than 200 mg/dL in a nonstressed, ambulatory subject supports the diagnosis of Diabetes Mellitus. Performed By: #### B MP, CBC #### [place] [address] [place] Commemt1 Glu2: Cleaned Meter Normal [facility] Comment on above: Result Comment: PERF ORMED BY: [place] [address] PATHOLOGIST DAY CARE CENTER DIRECTOR SUNNI CH M.D. Performed By: #### P T, PTT #### [place] [address] [place] Glucose [Mass/Vol] 131 mg/dL Normal [facility] Comment on above: Result Comment: [place] [facility] Glucose Reference Range is dependent on time and content of last meal. Glucose of more than 200 mg/dL in a nonstressed, ambulatory subject supports the diagnosis of Diabetes Mellitus. Performed By: #### P T, PTT #### [place] [id number] [place] Commemt1 Glu2: Cleaned Meter Normal [facility] Comment on above: Result Comment: PERF ORMED BY: [place] [address] PATHOLOGIST DAY CARE CENTER DIRECTOR SUNNI CH M.D. Performed By: #### P T, PTT #### [facility] [address] Glucose [Mass/Vol] 140 mg/dL Normal [facility] Comment on above: Result Comment: [place] Glucose Reference Range is dependent on time and content of last meal. Glucose of more than 200 mg/dL in a nonstressed, ambulatory subject supports the diagnosis of Diabetes Mellitus. Performed By: #### P T, PTT #### [facility] [address] Hematocrit Auto (Bld) [Volum e fraction]Ordered By: Winter Norris on 11-23-2023 Hematocrit (Bld) [Volume fraction] 40.4 % 34.0-46.4 [facility] Hemoglobin [Mass/volume] in BloodOrdered By: Winter Norris on 11-23-2023 Hemoglobin (Bld) [Mass/Vol] 13.1 g/dL 11.8-15.4 [facility] Leukocytes [#/volume] correc nargis for nucleated erythrocytes in Blood by Automated counOrdered By: Winter Norris on 11-23-2023 WBC corrected for nucl RBC Auto (Bld) [#/Vol] 9.6 10*3/uL 3.8-11.6 [facility] Lymphocytes Auto (Bld) [#/Vo l]Ordered By: Winter Norris on 11-23-2023 Lymphocytes (Bld) [#/Vol] 1.7 10*3/uL 1.00-4.8 [facility] Lymphocytes/100 WBC Auto (Bl d)Ordered By: Winter Norris on 11-23-2023 Lymphocytes/100 WBC (Bld) 17.7 % . [facility] MCH Auto (RBC) [Entitic mass ]Ordered By: Winter Norris on 11-23-2023 MCH (RBC) [Entitic mass] 28.2 pg 24.7-34.3 [facility] MCHC Auto (RBC) [Mass/Vol]Or dered By: Winter Norris on 11-23-2023 MCHC (RBC) [Mass/Vol] 32.4 g/dL 32.0-35.0 [facility] MCV Auto (RBC) [Entitic vol] Ordered By: Winter Norris on 11-23-2023 MCV (RBC) [Entitic vol] 86.9 fL 80-100 [facility] Monocytes Auto (Bld) [#/Vol] Ordered By: Winter Norris on 11-23-2023 Monocytes (Bld) [#/Vol] 0.9 10*3/uL 0.0-0.8 [facility] Monocytes/100 WBC Auto (Bld) Ordered By: Winter Norris on 11-23-2023 Monocytes/100 WBC (Bld) 9.5 % . [facility] Neutrophils Auto (Bld) [#/Vo l]Ordered By: Winter Norris on 11-23-2023 Neutrophils (Bld) [#/Vol] 7.0 10*3/uL 1.8-7.7 [facility] Neutrophils/100 WBC Auto (Bl d)Ordered By: Winter Norris on 11-23-2023 Neutrophils/100 WBC (Bld) 72.7 % . [facility] No Panel InformationOrdered By: Winter Norris on 11-23-2023 Bedside Glucose Comment Glu2: cleaned meter [facility] Nucleated erythrocytes [Pres ence] in Blood by Automated countOrdered By: Winter Norris on 11-23-2023 Nucleated RBC Auto Ql (Bld) 0.1 /100{WBC} 0-0.5 [facility] Platelet mean volume Auto (B ld) [Entitic vol]Ordered By: Winter Norris on 11-23-2023 Platelet mean volume (Bld) [Entitic vol] 8.5 fL 6.3-10.7 [facility] Platelets Auto (Bld) [#/Vol] Ordered By: Winter Norris on 11-23-2023 Platelets (Bld) [#/Vol] 203 10*3/uL 150-450 [facility] RBC Auto (Bld) [#/Vol]Ordere d By: Winter Norris on 11-23-2023 RBC (Bld) [#/Vol] 4.65 10*6/uL 3.60-5.00 [facility] WBC Auto (Bld) [#/Vol]Ordere d By: Winter Norris on 11-23-2023 WBC (Bld) [#/Vol] 9.6 10*3/uL 3.8-11.6 [facility] XR chest 1V portableon 11-22 XR chest 1V portable [facility] Main [place] [address] [place] [address] XRay Report Signed Patient: Melissa Dubose MR#: [id number] [birth year] : 1960 Acct:[id number] Age/Sex: 63 / F ADM Date: 11/21/23 Loc: Room: [address] [place] [address] Type: ADM IN Attending Dr: Winter Norris [...] Orville Oliver M.D.11/23/2023 10:44 AM Dictation Location: [place] [address] Transcribed By: [facility] 11/23/23 1044 Dictated By: Orville Oliver II, MD 11/23/23 1043 Signed By: 11/23/23 1044 Normal [facility] Activated partial thrombopla stin time (aPTT) in platelet poor plasma by coagulation aOrdered By: Justine Jacobo on 11-22-2023 aPTT Coag (PPP) [Time] 27.6 s 25.1-36.5 [facility] Comment on above: A hematocrit value g reater than 55% may lead to inaccurate results in coagulation testing. Patients having hematocrit values >55% require a special collection tube for coagulation studies. Please contact the laboratory at [phone] for redraw instructions. Blood Urea Nitrogenon 2023 Urea nitrogen [Mass/Vol] 24 mg/dL Normal 7-25 [facility] Comment on above: Performed By: #### P T, PTT #### [address] [address] Coagulation Profileon 2023 aPTT Coag (Bld) [Time] 27.6 s Normal 25.1-36.5 [facility] Comment on above: Result Comment: A he matocrit value greater than 55% may lead to inaccurate results in coagulation testing. Patients having hematocrit values >55% require a special collection tube for coagulation studies. Please contact the laboratory at [phone] for redraw instructions. PERFORMED BY: [place] [address] PATH[facility] DIRECTOR SUNNI CH M.D. Performed By: #### P T, PTT #### [address] [address] [facility] INR Coag (PPP) [Relative time] 1.2 {INR} Normal [facility] Comment on above: Result Comment: [...] Performed By: #### P T, PTT #### [place] [id number] [facility] PT Coag (PPP) [Time] 14.0 s High 9.0-12.9 [facility] Comment on above: Result Comment: A he matocrit value greater than 55% may lead to inaccurate results in coagulation testing. Patients having hematocrit values >55% require a special collection tube for coagulation studies. Please contact the laboratory at [phone] for redraw instructions. Performed By: #### P T, PTT #### [address] Complete Blood Count Auto Di ffon 11-22-2023 Basophils (Bld) [#/Vol] 0.0 10*3/uL Normal 0.0-0.2 [facility] Comment on above: Result Comment: PERF ORMED BY: [place] [address] [facility] DIRECT[facility] SUNNI CH M.D. Performed By: #### P T, PTT #### [address] Basophils/100 WBC (Bld) 0.1 % Normal . [facility] Comment on above: Performed By: #### P T, PTT #### [address] Eosinophils (Bld) [#/Vol] 0.0 10*3/uL Normal 0.0-0.45 [facility] Comment on above: Performed By: #### P T, PTT #### [address] Eosinophils/100 WBC (Bld) 0.0 % Normal . [facility] Comment on above: Performed By: #### P T, PTT #### [address] Erythrocyte distribution width (RBC) [Ratio] 15.2 % Normal 11.9-15.3 [facility] Comment on above: Performed By: #### P T, PTT #### [address] Hematocrit (Bld) [Volume fraction] 36.9 % Normal 34.0-46.4 [facility] Comment on above: Performed By: #### P T, PTT #### [address] Hemoglobin (Bld) [Mass/Vol] 11.9 g/dL Normal 11.8-15.4 [facility] Comment on above: Performed By: #### P T, PTT #### [address] Lymphocytes (Bld) [#/Vol] 0.6 10*3/uL Low 1.00-4.8 [facility] Comment on above: Performed By: #### P T, PTT #### [address] Lymphocytes/100 WBC (Bld) 10.0 % Normal . [facility] Comment on above: Performed By: #### P T, PTT #### [address] MCH (RBC) [Entitic mass] 28.5 pg Normal 24.7-34.3 [facility] Comment on above: Performed By: #### P T, PTT #### [address] MCV (RBC) [Entitic vol] 88.2 fL Normal 80-100 [facility] Comment on above: Performed By: #### P T, PTT #### [address] Mean Corpuscular HGB Conc 32.4 g/dL Normal 32.0-35.0 [facility] Comment on above: Performed By: #### P T, PTT #### [address] Monocytes (Bld) [#/Vol] 0.6 10*3/uL Normal 0.0-0.8 [facility] Comment on above: Performed By: #### P T, PTT #### [address] Monocytes/100 WBC (Bld) 8.6 % Normal . [facility] Comment on above: Performed By: #### P T, PTT #### [address] [place] [address] [place] Neutrophils (Bld) [#/Vol] 5.3 10*3/uL Normal 1.8-7.7 [facility] Comment on above: Performed By: #### P T, PTT #### [place] [address] [place] Neutrophils/100 WBC (Bld) 81.3 % Normal . [facility] Comment on above: Performed By: #### P T, PTT #### [address] NRBC% 0.1 /100{WBC} Normal 0-0.5 [facility] Comment on above: Performed By: #### P T, PTT #### [address] Platelet mean volume (Bld) [Entitic vol] 8.5 fL Normal 6.3-10.7 [facility] Comment on above: Performed By: #### P T, PTT #### [place] [address] [place] Platelets (Bld) [#/Vol] 177 10*3/uL Normal 150-450 [facility] Comment on above: Performed By: #### P T, PTT #### [place] [address] [place] RBC (Bld) [#/Vol] 4.18 10*6/uL Normal 3.60-5.00 [facility] Comment on above: Performed By: #### P T, PTT #### [place] [address] [place] WBC (Bld) [#/Vol] 6.5 10*3/uL Normal 3.8-11.6 [facility] Comment on above: Performed By: #### P T, PTT #### [place] [address] [place] Creatinineon 11-22-2023 Creatinine [Mass/Vol] 1.15 mg/dL Normal 0.60-1.20 [facility] Comment on above: Performed By: #### P T, PTT #### [address] Creatinine Clr Calc Pharmacy 68.56 Normal [facility] Comment on above: Result Comment: PERF ORMED BY: [place] [address] PATHOLOGIST [facility] DIRECTOR SUNNI CH M.D. Performed By: #### P T, PTT #### [address] GFR/1.73 sq M.predicted MDRD (S/P/Bld) [Vol rate/Area] 54.198 mL/min/{1.73_m2} Normal [facility] Comment on above: Performed By: #### P T, PTT #### [address] Electrolyteson 11-22-2023 Anion gap [Moles/Vol] 11.4 mmol/L Normal 6.0-15.0 [facility] Comment on above: Performed By: #### P T, PTT #### [address] Chloride [Moles/Vol] 103 mmol/L Normal 98-107 [facility] Comment on above: Performed By: #### P T, PTT #### [address] CO2 [Moles/Vol] 28.3 mmol/L Normal 21.0-31.0 [facility] Comment on above: Performed By: #### P T, PTT #### [address] Potassium [Moles/Vol] 4.7 mmol/L Normal 3.5-5.1 [facility] Comment on above: Performed By: #### P T, PTT #### [address] Sodium [Moles/Vol] 138 mmol/L Normal 136-145 [facility] Comment on above: Performed By: #### P T, PTT #### [address] Glucose Poct Glucometerson 0 11-22-2023 Glucose [Mass/Vol] 351 mg/dL Normal [facility] Comment on above: Result Comment: [place] Glucose Reference Range is dependent on time and content of last meal. Glucose of more than 200 mg/dL in a nonstressed, ambulatory subject supports the diagnosis of Diabetes Mellitus. PERFORMED BY: [place] [address] PATHOLOGIST [facility] DIRECTOR SUNNI CH M.D. Performed By: #### B MP, CBC #### [facility] [address] [place] [address] Glucose [Mass/Vol] 181 mg/dL Normal [facility] Comment on above: Result Comment: [place] Glucose Reference Range is dependent on time and content of last meal. Glucose of more than 200 mg/dL in a nonstressed, ambulatory subject supports the diagnosis of Diabetes Mellitus. PERFORMED BY: [place] [address] PATHOLOGIST [facility] DIRECTOR SUNNI CH M.D. Performed By: #### P T, PTT #### [facility] [address] [place] [address] Glucose [Mass/Vol] 354 mg/dL Normal [facility] Comment on above: Result Comment: [place] Glucose Reference Range is dependent on time and content of last meal. Glucose of more than 200 mg/dL in a nonstressed, ambulatory subject supports the diagnosis of Diabetes Mellitus. PERFORMED BY: [place] [address] PATHOLOGIST [facility] DIRECTOR SUNNI CH M.D. Performed By: #### G LULS #### Point of Care testing , INR in Platelet poor plasma by Coagulation assayOrdered By: Justine Jacobo on 11-22-2023 INR Coag (PPP) [Relative time] 1.2 {INR} [facility] Comment on above: INR Therapeutic Rang e [...] PT Coag (PPP) [Time] 14.0 s 9.0-12.9 [facility] Comment on above: A hematocrit value g reater than 55% may lead to inaccurate results in coagulation testing. Patients having hematocrit values >55% require a special collection tube for coagulation studies. Please contact the laboratory at [phone] for redraw instructions. A1C with Estimated Average G tyson 11-21-2023 Glucose [Mass/Vol] 88 mg/dL Normal [facility] Comment on above: Result Comment: PERF ORMED BY: [place] [address] PATHOLOG[facility] DIRECT[facility] SUNNI CH M.D. Performed By: #### P T, PTT #### [facility] [address] [place] [address] HbA1c (Bld) [Mass fraction] 4.7 % Normal 4.3-5.6 [facility] Comment on above: Result Comment: Incr eased risk for diabetes: 5.7 - 6.4 diabetes: >6.4 glycemic control for adults with diabetes: <7.0 Performed By: #### P T, PTT #### [facility] [address] [place] [address] Automated erythrocytes count in urine sediment (number/area)Ordered By: Winter Norris on 11-21-2023 RBC Auto (Urine sed) [#/Area] 1-2 [HPF] 0-4 [facility] Automated leukocytes count i n urine sediment (number/area)Ordered By: Winter Norris on 11-21-2023 WBC Auto (Urine sed) [#/Area] 0-1 [HPF] 0-4 [facility] Basic Metabolic Panelon 11-07 Anion gap [Moles/Vol] 12.9 mmol/L Normal 6.0-15.0 [facility] Comment on above: Performed By: #### B MP, CBC #### [address] Calcium [Mass/Vol] 8.4 mg/dL Low 8.6-10.3 [facility] Comment on above: Performed By: #### B MP, CBC #### [place] [address] [place] Chloride [Moles/Vol] 106 mmol/L Normal 98-107 [facility] Comment on above: Performed By: #### B MP, CBC #### [address] CO2 [Moles/Vol] 22.3 mmol/L Normal 21.0-31.0 [facility] Comment on above: Performed By: #### B MP, CBC #### [address] Creatinine [Mass/Vol] 0.96 mg/dL Normal 0.60-1.20 [facility] Comment on above: Performed By: #### B MP, CBC #### [place] [address] [place] Creatinine Clr Calc Pharmacy 82.13 Normal [facility] Comment on above: Result Comment: PERF ORMED BY: [place] [address] PATHOLOG[facility] DIRECTOR SUNNI CH M.D. Performed By: #### B MP, CBC #### [place] [address] [place] GFR/1.73 sq M.predicted MDRD (S/P/Bld) [Vol rate/Area] mL/min/{1.73_m2} Normal [facility] Comment on above: Performed By: #### B MP, CBC #### [place] [address] [place] Glucose [Mass/Vol] 260 mg/dL High 70-100 [facility] Comment on above: Result Comment: [place] Glucose Reference Range is dependent on time and content of last meal. Glucose of more than 200 mg/dL in a nonstressed, ambulatory subject supports the diagnosis of Diabetes Mellitus. ADA recommended reference range Performed By: #### B MP, CBC #### [facility] [address] Potassium [Moles/Vol] 4.2 mmol/L Normal 3.5-5.1 [facility] Comment on above: Performed By: #### B MP, CBC #### [facility] [address] Sodium [Moles/Vol] 137 mmol/L Normal 136-145 [facility] Comment on above: Performed By: #### B MP, CBC #### [facility] [address] Urea nitrogen [Mass/Vol] 18 mg/dL Normal 7-25 [facility] Comment on above: Performed By: #### B MP, CBC #### [facility] [address] Bilirubin Test strip Ql (U)O rdered By: Winter Norris on 11-21-2023 Bilirubin Ql (U) Negative Negative [facility] Cholesterol [Mass/volume] in Serum or PlasmaOrdered By: Karen Mays on 11-21-2023 Cholesterol [Mass/Vol] 95 mg/dL 140-200 [facility] Comment on above: Chol less than 200 m g/dl low riskChol 201-239 mg/dl borderline riskChol 240 mg/dl and greater high risk Cholesterol in LDL Calc [Mas s/Vol]Ordered By: Karen Mays on 11-21-2023 Cholesterol in LDL [Mass/Vol] 53 mg/dL 0-100 [facility] Comment on above: LDL ATP III CLASSIFI CATIONLDL less than 100 mg/dL OptimalLDL 100-129 mg/dL Near or above optimalLDL 130-159 mg/dL Borderline highLDL 160-189 mg/dL HighLDL greater than 189 mg/dL Very high Cholesterol in VLDL Calc [Ma ss/Vol]Ordered By: Karen Mays on 11-21-2023 Cholesterol in VLDL [Mass/Vol] 12 mg/dL [facility] Color Auto (U)Ordered By: Juanita Norris on 11-21-2023 Color (U) Yellow Yellow [facility] Complete Blood Count Auto Di ffon 11-21-2023 Basophils (Bld) [#/Vol] 0.0 10*3/uL Normal 0.0-0.2 [facility] Comment on above: Result Comment: PERF ORMED BY: [place] [address] PATHOLOGIST [facility] DIRECTOR SUNNI CH M.D. Performed By: #### B MP, CBC #### [address] Basophils/100 WBC (Bld) 0.3 % Normal . [facility] Comment on above: Performed By: #### B MP, CBC #### [place] [address] [place] Eosinophils (Bld) [#/Vol] 0.0 10*3/uL Normal 0.0-0.45 [facility] Comment on above: Performed By: #### B MP, CBC #### [address] Eosinophils/100 WBC (Bld) 0.0 % Normal . [facility] Comment on above: Performed By: #### B MP, CBC #### [address] Erythrocyte distribution width (RBC) [Ratio] 15.3 % Normal 11.9-15.3 [facility] Comment on above: Performed By: #### B MP, CBC #### [address] Hematocrit (Bld) [Volume fraction] 37.6 % Normal 34.0-46.4 [facility] Comment on above: Performed By: #### B MP, CBC #### [address] Hemoglobin (Bld) [Mass/Vol] 12.3 g/dL Normal 11.8-15.4 [facility] Comment on above: Performed By: #### B MP, CBC #### [address] Lymphocytes (Bld) [#/Vol] 0.3 10*3/uL Low 1.00-4.8 [facility] Comment on above: Performed By: #### B MP, CBC #### [address] Lymphocytes/100 WBC (Bld) 5.3 % Normal . [facility] Comment on above: Performed By: #### B MP, CBC #### [address] MCH (RBC) [Entitic mass] 29.0 pg Normal 24.7-34.3 [facility] Comment on above: Performed By: #### B MP, CBC #### [address] MCV (RBC) [Entitic vol] 88.3 fL Normal 80-100 [facility] Comment on above: Performed By: #### B MP, CBC #### [address] Mean Corpuscular HGB Conc 32.8 g/dL Normal 32.0-35.0 [facility] Comment on above: Performed By: #### B MP, CBC #### [place] [address] [place] Monocytes (Bld) [#/Vol] 0.1 10*3/uL Normal 0.0-0.8 [facility] Comment on above: Performed By: #### B MP, CBC #### [place] [address] [place] Monocytes/100 WBC (Bld) 2.4 % Normal . [facility] Comment on above: Performed By: #### B MP, CBC #### [address] Neutrophils (Bld) [#/Vol] 4.9 10*3/uL Normal 1.8-7.7 [facility] Comment on above: Performed By: #### B MP, CBC #### [address] Neutrophils/100 WBC (Bld) 92.0 % Normal . [facility] Comment on above: Performed By: #### B MP, CBC #### [address] NRBC% 0.0 /100{WBC} Normal 0-0.5 [facility] Comment on above: Performed By: #### B MP, CBC #### [address] Platelet mean volume (Bld) [Entitic vol] 8.3 fL Normal 6.3-10.7 [facility] Comment on above: Performed By: #### B MP, CBC #### [address] Platelets (Bld) [#/Vol] 158 10*3/uL Normal 150-450 [facility] Comment on above: Performed By: #### B MP, CBC #### [address] RBC (Bld) [#/Vol] 4.25 10*6/uL Normal 3.60-5.00 [facility] Comment on above: Performed By: #### B MP, CBC #### [address] WBC (Bld) [#/Vol] 5.4 10*3/uL Normal 3.8-11.6 [facility] Comment on above: Performed By: #### B MP, CBC #### [place] [address] [place] Dipstick and Microscopicon 0 11-21-2023 Appearance (U) Clear Normal Clear [facility] Comment on above: Order Comment: Name Collection Type:: Clean-Voided Midstream Performed By: #### B MP, CBC #### [place] [address] [place] Bacteria,Urine None Seen Normal None Seen [facility] Comment on above: Order Comment: Name Collection Type:: Clean-Voided Midstream Performed By: #### B MP, CBC #### [address] Bilirubin,Urine Negative Normal Negative [facility] Comment on above: Order Comment: Name Collection Type:: Clean-Voided Midstream Performed By: #### B MP, CBC #### [facility] [address] [place] [address] [place] Color (U) Yellow Normal Yellow [facility] Comment on above: Order Comment: Name Collection Type:: Clean-Voided Midstream Performed By: #### B MP, CBC #### [facility] [address] Glucose Ql (U) >=1000 High Normal [facility] Comment on above: Order Comment: Name Collection Type:: Clean-Voided Midstream Performed By: #### B MP, CBC #### [place] [address] [place] Hyaline Casts,Urine None Seen Normal 0-8 [facility] Comment on above: Order Comment: Name Collection Type:: Clean-Voided Midstream Result Comment: PERF ORMED BY: [place] [address] PATH[facility] DIRECT[facility] SUNNI CH M.D. Performed By: #### B MP, CBC #### [address] Ketones Ql (U) Negative Normal Negative [facility] Comment on above: Order Comment: Name Collection Type:: Clean-Voided Midstream Performed By: #### B MP, CBC #### [place] [address] [place] Leukocyte esterase Test strip Ql (U) Negative Normal Negative [facility] Comment on above: Order Comment: Name Collection Type:: Clean-Voided Midstream Performed By: #### B MP, CBC #### [place] [address] [place] Nitrite,Urine Negative Normal Negative [facility] Comment on above: Order Comment: Name Collection Type:: Clean-Voided Midstream Performed By: #### B MP, CBC #### [facility] [address] [place] [address] [place] Occult Blood,Urine 1+ High Negative [facility] Comment on above: Order Comment: Name Collection Type:: Clean-Voided Midstream Result Comment: PERF ORMED BY: [place] [address] PATH[facility] DIRECT[facility] SUNNI CH M.D. Performed By: #### B MP, CBC #### [address] pH (U) 5.5 [pH] Normal 5.0-9.0 [facility] Comment on above: Order Comment: Name Collection Type:: Clean-Voided Midstream Performed By: #### B MP, CBC #### [address] Protein,Urine Negative Normal Negative [facility] Comment on above: Order Comment: Name Collection Type:: Clean-Voided Midstream Performed By: #### B MP, CBC #### [address] RBC,Urine 1-2 Normal 0-4 [facility] Comment on above: Order Comment: Name Collection Type:: Clean-Voided Midstream Performed By: #### B MP, CBC #### [place] [address] [place] Specificy [place],Urine 1.012 Normal 1.001-1.03 0 [facility] Comment on above: Order Comment: Name Collection Type:: Clean-Voided Midstream Performed By: #### B MP, CBC #### [place] [address] [place] Squamous Epithelial Cell,Urine None Seen Normal 0-2 [facility] Comment on above: Order Comment: Name Collection Type:: Clean-Voided Midstream Performed By: #### B MP, CBC #### [place] [address] [place] Urobilinogen,Urine Normal Normal Normal [facility] Comment on above: Order Comment: Name Collection Type:: Clean-Voided Midstream Performed By: #### B MP, CBC #### [place] [address] [place] WBC LM.HPF (Urine sed) [#/Area] 0 /[HPF] Normal 0-4 [facility] Comment on above: Order Comment: Name Collection Type:: Clean-Voided Midstream Performed By: #### B MP, CBC #### [address] ECG 12 lead ECGon 11-21-2023 ECG 12 lead ECG [facility] [place] [address] Electrocardiograph Report Signed Patient: Melissa Dubose MR#: [id number] 70 : 1960 Acct:[id number] Age/Sex: 63 / F ADM Date: 11/21/23 Loc: 4 Room: [address] [place] [address] Type: ADM IN Attending Dr: Winter Norris [...] Vincent MD 0 11/21/23 1232 Normal [facility] echo transthoracicon [facility] echo transthoracic [facility] [place] [address] Echocardiogram Signed Patient: Melissa Dubose MR#: [id number] 70 : 1960 Acct:[id number] Age/Sex: 63 / F ADM Date: 11/21/23 Loc: 4 Room: [address] [place] [address] Type: ADM IN Attending Dr: Winter Norris MD Ordering Provider: Karen Mays APRN Date of Service: 11/21/23 [facility] echo transthoracic: nstemi Copies to: MD Karen Treadwell, RADIO RECORDER Weight: 239 lb Performed By: WILMA Rangel BSA: 2.3 m2 BP: 138/79 mmHg HR: 94 Reason For Study: nstemi History: [place]. HTN. DM. CABG. Former Smoker. Interpretation Summary [...] Laurie Vincent MD 11/21/23 1116 Normal [facility] Glucose Poct Glucometerson 0 11-21-2023 Commemt1 Normal [facility] Comment on above: Result Comment: Glu2 : WILL NOTIFY DR/RN Performed By: #### P T, PTT #### [address] Commemt2 Cleaned Meter Normal [facility] Comment on above: Performed By: #### P T, PTT #### [address] Commemt3 Will Repeat Test Normal [facility] Comment on above: Result Comment: PERF ORMED BY: [place] [address] PATHOLOG[facility] DIRECTOR SUNNI CH M.D. Performed By: #### P T, PTT #### [address] Glucose [Mass/Vol] 405 mg/dL Off scale high e [facility] Comment on above: Result Comment: [place] om Glucose Reference Range is dependent on time and content of last meal. Glucose of more than 200 mg/dL in a nonstressed, ambulatory subject supports the diagnosis of Diabetes Mellitus. Performed By: #### P T, PTT #### [facility] [address] [place] [address] [place] Glucose [Mass/Vol] 345 mg/dL Normal [facility] Comment on above: Result Comment: [place] om Glucose Reference Range is dependent on time and content of last meal. Glucose of more than 200 mg/dL in a nonstressed, ambulatory subject supports the diagnosis of Diabetes Mellitus. PERFORMED BY: [place] [address] [facility] DIRECT[facility] SUNNI CH M.D. Performed By: #### B MP, CBC #### [place] [address] [place] Glucose [Mass/Vol] 367 mg/dL Normal [facility] Comment on above: Result Comment: [place] om Glucose Reference Range is dependent on time and content of last meal. Glucose of more than 200 mg/dL in a nonstressed, ambulatory subject supports the diagnosis of Diabetes Mellitus. PERFORMED BY: [place] [address] PATH[facility] DIRECT[facility] SUNNI CH M.D. Performed By: #### B MP, CBC #### [address] Glucose [Mass/Vol] 281 mg/dL Normal [facility] Comment on above: Result Comment: [place] Glucose Reference Range is dependent on time and content of last meal. Glucose of more than 200 mg/dL in a nonstressed, ambulatory subject supports the diagnosis of Diabetes Mellitus. PERFORMED BY: [place] [address] PATH[facility] DIRECT[facility] SUNNI CH M.D. Performed By: #### B MP, CBC #### [address] [address] Glucose mean value [Mass/vol ume] in Blood Estimated from glycated hemoglobinOrdered By: Karen Mays on 11-21-2023 Average glucose Estimated from glycated hemoglobin (Bld) [Mass/Vol] 88 mg/dL [facility] Hemoglobin A1c percentageOrd ered By: Karen Mays on 11-21-2023 HbA1c (Bld) [Mass fraction] 4.7 % 4.3-5.6 [facility] Comment on above: Increased risk for d iabetes: 5.7 - 6.4diabetes: >6.4glycemic control for adults with diabetes: <7.0 Ketones Auto test strip (U) [Mass/Vol]Ordered By: Winter Norris on 11-21-2023 Ketones (U) [Mass/Vol] Negative Negative [facility] Laboratory - UrinalysisOrder ed By: Winter Norris on 11-21-2023 Hyaline casts LM Ql (Urine sed) None seen [LPF] 0-8 [facility] Lactate [Moles/volume] in Se rum or PlasmaOrdered By: Karen Mays on 11-21-2023 Lactate [Moles/Vol] 1.5 mmol/L 0.5-2.2 [facility] Lactic Acidon 11-21-2023 Lactate [Moles/Vol] 1.5 mmol/L Normal 0.5-2.2 [facility] Comment on above: Result Comment: PERF ORMED BY: [place] [address] PATHOLOGIST [facility] DIRECT[facility] SUNNI CH M.D. Performed By: #### B MP, CBC #### [facility] [address] Lipid Panelon 11-21-2023 Cholesterol [Mass/Vol] 95 mg/dL Low 140-200 [facility] Comment on above: Result Comment: Chol less than 200 mg/dl low risk Chol 201-239 mg/dl borderline risk Chol 240 mg/dl and greater high risk Performed By: #### L IPID, A1C WTH eA #### [facility] [address] [place] [id number] [facility] Cholesterol in HDL [Mass/Vol] 29 mg/dL Normal 23-92 [facility] Comment on above: Result Comment: HDL CHOL ATP-III CLASSIFICATION Cardiovascular Risk HDL > or equal to 60 mg/dL LOW HDL < 40 mg/dL HIGH Performed By: #### L IPID, [address] eA #### [address] Cholesterol.total/Cho lesterol in HDL [Mass ratio] 3.3 {ratio} Normal <5.0 [facility] Comment on above: Result Comment: PERF ORMED BY: [place] [address] PATHOLOGIST [facility] DIRECTOR SUNNI CH M.D. Performed By: #### L IPID, [address] eA #### [address] LDL Cholesterol,Calculate d 53 mg/dL Normal 0-100 [facility] Comment on above: Result Comment: LDL ATP III CLASSIFICATION LDL less than 100 mg/dL Optimal LDL 100-129 mg/dL Near or above optimal LDL 130-159 mg/dL Borderline high LDL 160-189 mg/dL High LDL greater than 189 mg/dL Very high Performed By: #### L IPID, [address] eA #### [address] Triglyceride w/Reflex 63 mg/dL Normal 0-149 [facility] Comment on above: Result Comment: TRIG ATP III CLASSIFICATION TRIG less than 150 mg/dL Normal TRIG 150-199 mg/dL Borderline high TRIG 200-500 mg/dL High TRIG greater than 500 mg/dL Very high Standard traceable to the Center for Disease Conrtrol and Prevention (CDC) test method. Performed By: #### L IPID, [address] eA #### [address] VLDL CHOLESTEROL 12 mg/dL Normal [facility] Comment on above: Performed By: #### L IPID, [address] eA #### [address] Nitrite Test strip Ql (U)Ord ered By: Winter Norris on 11-21-2023 Nitrite Ql (U) Negative Negative [facility] No Panel InformationOrdered By: Winter Norris on 11-21-2023 Bedside Glucose #2 Comment Cleaned meter [facility] Bedside Glucose #3 Comment Will repeat test [facility] Partial Thromboplastin Timeo n 11-21-2023 aPTT Coag (Bld) [Time] 47.2 s High 25.1-36.5 [facility] Comment on above: Order Comment: List the anticoagulant: HEPARIN, UNFRACTIONATED Result Comment: A he matocrit value greater than 55% may lead to inaccurate results in coagulation testing. Patients having hematocrit values >55% require a special collection tube for coagulation studies. Please contact the laboratory at [phone] for redraw instructions. PERFORMED BY: [place] [address] PATHOLOGIST [facility] DIRECTOR SUNNI CH M.D. Performed By: #### P TT #### [facility] [address] [place] [address] [facility] aPTT Coag (Bld) [Time] 152.4 s Off scale high 25.1-36.5 [facility] Comment on above: Order Comment: List the anticoagulant: HEPARIN, UNFRACTIONATED Result Comment: Crit ical value result called at 1511 on 11/21/23 A hematocrit value greater than 55% may lead to inaccurate results in coagulation testing. Patients having hematocrit values >55% require a special collection tube for coagulation studies. Please contact the laboratory at [phone] for redraw instructions. PERFORMED BY: [place] [address] PATHOLOGIST [facility] DIRECTOR SUNNI CH M.D. Performed By: #### B MP, CBC #### [facility] [address] [place] [address] [place] aPTT Coag (Bld) [Time] s Off scale high 25.1-36.5 [facility] Comment on above: Order Comment: DRAW ALL LABS AT 1015 PER CHARLES COLLINS List the anticoagulant: HEPARIN, UNFRACTIONATED Result Comment: Crit ical value result called at 1152 on 11/21/23 A hematocrit value greater than 55% may lead to inaccurate results in coagulation testing. Patients having hematocrit values >55% require a special collection tube for coagulation studies. Please contact the laboratory at [phone] for redraw instructions. PERFORMED BY: [place] [address] PATH[facility] DIRECT[facility] SUNNI CH M.D. Performed By: #### B MP, CBC #### [address] aPTT Coag (Bld) [Time] 51.3 s High 25.1-36.5 [facility] Comment on above: Result Comment: A he matocrit value greater than 55% may lead to inaccurate results in coagulation testing. Patients having hematocrit values >55% require a special collection tube for coagulation studies. Please contact the laboratory at [phone] for redraw instructions. PERFORMED BY: [place] [address] PATHOLOGIST [facility] DIRECTOR SUNNI CH M.D. Performed By: #### P T, PTT #### [place] [id number] [facility] Protein Auto test strip (U) [Mass/Vol]Ordered By: Winter Norris on 11-21-2023 Protein (U) [Mass/Vol] Negative Negative [facility] Prothrombin Time INRon 11-20 INR Coag (PPP) [Relative time] 1.4 {INR} Normal [facility] Comment on above: Result Comment: [...] Performed By: #### P T, PTT #### [place] [id number] [facility] PT Coag (PPP) [Time] 15.6 s High 9.0-12.9 [facility] Comment on above: Result Comment: A he matocrit value greater than 55% may lead to inaccurate results in coagulation testing. Patients having hematocrit values >55% require a special collection tube for coagulation studies. Please contact the laboratory at [phone] for redraw instructions. Performed By: #### P T, PTT #### [facility] [address] [place] [address] Serum or plasma high density lipoprotein (HDL) cholesterol measurementOrdered By: Karen Mays on 11-21-2023 Cholesterol in HDL [Mass/Vol] 29 mg/dL 23-92 [facility] Comment on above: HDL CHOL ATP-III CLA SSIFICATION Cardiovascular RiskHDL > or equal to 60 mg/dL LOWHDL < 40 mg/dL HIGH Serum or plasma total choles terol/high density lipoprotein (HDL) cholesterol mass ratOrdered By: Karen Mays on 11-21-2023 Cholesterol.total/Cho lesterol in HDL [Mass ratio] 3.3 {ratio} <5.0 [facility] Specific gravity Auto test s trip (U) [Rel density]Ordered By: Winter Norris on 11-21-2023 Specific gravity (U) [Rel density] 1.012 1.001-1.03 0 [facility] Squamous epithelial cells de tection in urine sediment by light microscopyOrdered By: Winter Norris on 11-21-2023 Epithelial cells.squamous LM Ql (Urine sed) None seen [HPF] 0-2 [facility] Triglyceride [Mass/volume] i n Serum or PlasmaOrdered By: Karen Mays on 11-21-2023 Triglyceride [Mass/Vol] 63 mg/dL 0-149 [facility] Comment on above: TRIG ATP III CLASSIF ICATIONTRIG less than 150 mg/dL NormalTRIG 150-199 mg/dL Borderline highTRIG 200-500 mg/dL High TRIG greater than 500 mg/dL Very highStandard traceable to the Center for Disease Conrtrol and Prevention (CDC) test method. Troponin I High Sensitivityo n 11-21-2023 Troponin I High Sensitivity 70.7 pg/mL Off scale high 0.0-15.0 [facility] Comment on above: Order Comment: DRAW ALL LABS AT 1015 PER CHARLES COLLINS Result Comment: Crit ical Result : Called to and read back by: DENNIS CAMPBELL at: 11/21/2023 11:29:54 by:SAMINA PERFORMED BY: [phone] PATHOLOGIST DAY [facility] DIRECTOR SUNNI CH M.D. Performed By: #### B MP, CBC #### [facility] [address] [place] [address] [place] Troponin I High Sensitivity 75.8 pg/mL Off scale high 0.0-15.0 [facility] Comment on above: Order Comment: 0607 draw Result Comment: Crit ical Result : Called to and read back by: JEREMY ESTRADA at: 11/21/2023 07:30:30 by:[id number] PERFORMED BY: [place] [id number] PATHOLOGIST [facility] DIRECTOR SUNNI CH M.D. Performed By: #### H S TROP #### [place] [address] [place] Troponin I High Sensitivity 85.3 pg/mL Off scale high 0.0-15.0 [facility] Comment on above: Result Comment: Crit ical Result : Called to and read back by: ALBER ONEILL at: 11/21/2023 05:03:43 by:[id number] PERFORMED BY: [phone] PATHOLOGIST [facility] DIRECTOR SUNNI CH M.D. Performed By: #### H S TROP #### [address] Troponin I.cardiac [Mass/vol ume] in Serum or Plasma by Detection limit <= 0.01 ng/Ordered By: Karen Mays on 11-21-2023 Troponin I.cardiac DL <= 0.01 ng/mL [Mass/Vol] 70.7 pg/mL 0.0-15.0 [facility] Comment on above: Critical Result : Ca lled to and read back by: DENNIS CAMPBELL at: 11/21/2023 11:29:54 by:SAMINA Urine bacteria detection by automated methodOrdered By: Winter Norris on 11-21-2023 Bacteria Auto Ql (U) None seen None Seen [facility] Urine clarity by refractomet ry automatedOrdered By: Winter Norris on 11-21-2023 Clarity Refractometry automated (U) Clear Clear [facility] Urine glucose measurement by automated test strip (mass/volume)Ordered By: Winter Norris on 11-21-2023 Glucose Auto test strip (U) [Mass/Vol] >=1000 mg/dL Normal [facility] Urine hemoglobin detection b y automated test stripOrdered By: Winter Norris on 11-21-2023 Hemoglobin Auto test strip Ql (U) 1+ Negative [facility] Urine leukocyte esterase det ection by automated test stripOrdered By: Winter Norris on 11-21-2023 Leukocyte esterase Auto test strip Ql (U) Negative Negative [facility] Urobilinogen Auto test strip (U) [Mass/Vol]Ordered By: Winter Norris on 11-21-2023 Urobilinogen (U) [Mass/Vol] Normal mg/dL Normal [facility] XR chest 1V portableon 11-20 XR chest 1V portable [facility] [place] [address] XRay Report Signed Patient: Melissa Dubose MR#: [id number] 70 : 1960 Acct:[id number] Age/Sex: 63 / F ADM Date: 11/21/23 Loc: Room: [address] [place] [address] Type: ADM IN Attending Dr: Winter Norris [...] Orville Oliver M.D.11/21/2023 5:01 PM Dictation Location: [place] [address] Transcribed By: [facility] 11/21/23 170 Dictated By: Orville Oliver II, MD 11/21/231657 Signed By: 11/21/23 170 Normal [facility] pH Auto test strip (U)Ordere d By: Winter Norris on 11-21-2023 pH (U) 5.5 [pH] 5.0-9.0 [facility] Office Visiton 04-05-2023 Follow-up visit [id number] Chung Dubose 1960 F Date Provider Department Center 04/05/2023 [id number] AGUAYO [facility] Family History Problem Relation Age of Onset Diabetes Mother Atrial fibrillation Mother Hyperlipidemia Mother Kidney disease Sister Heart attack Maternal Grandmother Stroke Maternal Grandmother Family Status - Relation Status Age at Mother Sister Maternal Grandmother Level of Service:18180 NM OFFICE/OUTPATIENT ESTABLISHED MOD MDM 30-39 MIN Reason for Visit and Comments: Follow-up [851134] Normal [facility] CBC AUTO DIFFon 01-23-2023 BASO # 0.0 103/ul Normal 0.0-0.1 [facility] Comment on above: Performed By: #### I VINCE #### [facility] [address] [place] [address] [address] Chi Keith Basophils/100 WBC (Bld) 0.4 % Normal 0.2-2.0 [facility] Comment on above: Performed By: #### I VINCE #### [facility] [address] [address] [address] Chi Keith EO # 0.1 103/ul Normal 0.0-0.7 [facility] Comment on above: Performed By: #### I VINCE #### [facility] [address] [place] [address] Dr. Chi Keith Eosinophils/100 WBC (Bld) 1.9 % Normal 0.9-7.0 [facility] Comment on above: Performed By: #### I VINCE #### [facility] [address] [place] [address] Dr. Chi Keith Erythrocyte distribution width (RBC) [Ratio] 13.9 % Normal 11.0-15.0 [facility] Comment on above: Performed By: #### I VINCE #### [facility] [address] [place] [address] Dr. Chi Keith Hematocrit (Bld) [Volume fraction] 40.5 % Normal 36.0-48.0 [facility] Comment on above: Performed By: #### I VINCE #### [facility] [address] [place] [address] Dr. Chi Keith Hemoglobin (Bld) [Mass/Vol] 12.9 g/dL Normal 12.0-16.0 [facility] Comment on above: Performed By: #### I VINCE #### [facility] [address] [place] [address] Dr. Chi Keith IG # 0.02 10e3/ul Normal 0.00-0.03 [facility] Comment on above: Performed By: #### I VINCE #### [facility] [address] [place] [address] Dr. Chi Keith IG % 0.3 % Normal 0.0-0.5 [facility] Comment on above: Performed By: #### I VINCE #### [facility] [address] [place] [address] Dr. Chi Keith LYMPH # 1.4 103/ul Normal 1.2-3.8 [facility] Comment on above: Performed By: #### I VINCE #### [facility] [address] [place] [address] Dr. Chi Keith Lymphocytes/100 WBC (Bld) 18.7 % Critically low 20.5-60.0 [facility] Comment on above: Performed By: #### I VINCE #### [facility] [address] [place] [address] Dr. Chi Keith MANUAL DIFF REQ NO Normal [facility] Comment on above: Performed By: #### I VINCE #### [facility] [address] [address] [address] Chi Keith MCH (RBC) [Entitic mass] 29.7 pg Normal 26.7-34.0 [facility] Comment on above: Performed By: #### I VINCE #### [facility] [address] [place] [address] Dr. Chi Keith MCHC (RBC) [Mass/Vol] 31.9 g/dL Normal 29.9-35.2 [facility] Comment on above: Performed By: #### I VINCE #### [facility] [address] [place] [address] Dr. Chi Keith MCV (RBC) [Entitic vol] 93.1 fL Normal 81.0-99.0 [facility] Comment on above: Performed By: #### I VINCE #### [facility] [address] [place] [address] Dr. Chi Keith MONO # 0.5 103/ul Normal 0.3-0.8 [facility] Comment on above: Performed By: #### I VINCE #### [facility] [address] [place] [address] Dr. Chi Keith Monocytes/100 WBC (Bld) 6.4 % Normal 1.7-12.0 [facility] Comment on above: Performed By: #### I VINCE #### [facility] [address] [place] [address] Dr. Chi Keith NEUT # 5.4 103/ul Normal 1.4-6.5 [facility] Comment on above: Performed By: #### I VINCE #### [facility] [address] [place] [address] Dr. Chi Keith Neutrophils/100 WBC (Bld) 72.3 % Normal 43.0-75.0 [facility] Comment on above: Performed By: #### I VINCE #### [facility] [address] [place] [address] Dr. Chi Keith Platelet mean volume (Bld) [Entitic vol] 10.1 fL Normal 9.5-13.5 [facility] Comment on above: Performed By: #### I VINCE #### [facility] [address] [address] [address] Chi Keith PLT 271 103/ul Normal 150-450 [facility] Comment on above: Performed By: #### I VINCE #### [facility] [address] [place] [address] Dr. Chi Keith RBC 4.35 106/ul Normal 4.20-5.40 [facility] Comment on above: Performed By: #### I VINCE #### [facility] [address] [place] [address] Dr. Chi Keith WBC 7.5 103/ul Normal 4.0-11.0 [facility] Comment on above: Performed By: #### I VINCE #### [facility] [address] [place] [address] Dr. Chi Keith FREE THYROXINE INDEX T7on FTI 3.94 Normal 1.30-4.50 [facility] Comment on above: Performed By: #### T 7, LIPID, TSH, CMP #### [facility] [address] [place] [address] Dr. Chi Keith T3U 31.0 % Normal 30.0-39.0 [facility] Comment on above: Performed By: #### T 7, LIPID, TSH, CMP #### [facility] [address] [place] [address] Dr. Chi Keith T4 [Mass/Vol] 12.70 ug/dL Normal 4.80-13.90 [facility] Comment on above: Performed By: #### T 7, LIPID, TSH, CMP #### [facility] [address] [place] [address] Dr. Chi Keith GLYCOHEMOGLOBIN A1Con 2022 ADA RECOMMENDATION SEE BELOW Normal [facility] Comment on above: Result Comment: ADA RECOMMENDED LIMIT 4.0 - 6.0 ADA THERAPEUTIC TARGET < 7.0 ACTION SUGGESTED > 7.0 Performed By: #### A 1C #### [facility] [address] [place] [address] Dr. hCi Keith Glucose [Mass/Vol] 120 mg/dL Normal [facility] Comment on above: Performed By: #### A 1C #### [facility] [address] [address] [address] Chi Keith HbA1c (Bld) [Mass fraction] 5.8 % Normal 4.5-6.2 [facility] Comment on above: Performed By: #### A 1C #### [facility] [address] [address] [address] Chi Keith IRONon 01-23-2023 Iron [Mass/Vol] 109.0 ug/dL Normal 50.0-170.0 [facility] Comment on above: Performed By: #### I VINCE #### [facility] [address] [address] [address] Chi Keith LIPID PROFILEon 01-23-2023 CHOL-HDL RATIO NORM SEE BELOW Normal [facility] Comment on above: Result Comment: 3.3 - 4.4 LOW RISK 4.4 - 7.1 AVERAGE RISK 7.1 - 11.0 MODERATE RISK >11.0 HIGH RISK Performed By: #### T 7, LIPID, TSH, CMP #### [facility] [address] [place] [address] Dr. Chi Keith Cholesterol [Mass/Vol] 209 mg/dL Critically high <=200 [facility] Comment on above: Performed By: #### T 7, LIPID, TSH, CMP #### [facility] [address] [place] [address] Dr. Chi Keith Cholesterol in HDL [Mass/Vol] 41 mg/dL Normal 40-60 [facility] Comment on above: Performed By: #### T 7, LIPID, TSH, CMP #### [facility] [address] [address] [address] Chi Keith Cholesterol in LDL [Mass/Vol] 135.0 mg/dL Normal [facility] Comment on above: Performed By: #### T 7, LIPID, TSH, CMP #### [facility] [address] [place] [address] Dr. Chi Keith Cholesterol.total/Cho lesterol in HDL [Mass ratio] 5.1 {ratio} Normal [facility] Comment on above: Performed By: #### T 7, LIPID, TSH, CMP #### [facility] [address] [address] [address] Chi Keith HDL NORMAL > or = 60 mg/dl - LO W CARDIOVASCULAR RISK <40 mg/dl - HIGH CARDIOVASCULAR RISK Normal [facility] Comment on above: Performed By: #### T 7, LIPID, TSH, CMP #### [facility] [address] [address] [address] Chi Keith LDL CALC NORMAL SEE BELOW Normal [facility] Comment on above: Result Comment: <100 mg/dl OPTIMAL 100 - 129 mg/dl NEAR OR ABOVE OPTIMAL 130 - 159 mg/dl BORDERLINE HIGH 160 - 189 mg/dl HIGH >190 mg/dl VERY HIGH Performed By: #### T 7, LIPID, TSH, CMP #### [facility] [address] [place] [address] [address] Chi Keith Triglyceride [Mass/Vol] 165 mg/dL Critically high <=150 [facility] Comment on above: Performed By: #### T 7, LIPID, TSH, CMP #### [facility] [address] [address] [address] Chi Keith VLDL CALC 33.0 mg/dL Normal [facility] Comment on above: Performed By: #### T 7, LIPID, TSH, CMP #### [facility] [address] [place] [address] Dr. Chi Keith PROF 14(COMP METB)on 023 Albumin [Mass/Vol] 3.1 g/dL Critically low 3.4-5.0 Th [facility] Comment on above: Performed By: #### T 7, LIPID, TSH, CMP #### [facility] [address] [place] [address] Dr. Chi Keith Albumin/Globulin [Mass ratio] 0.8 {ratio} Normal [facility] Comment on above: Performed By: #### T 7, LIPID, TSH, CMP #### [facility] [address] [address] [address] Chi Keith ALP [Catalytic activity/Vol] 86 U/L Normal 46-116 [facility] Comment on above: Performed By: #### T 7, LIPID, TSH, CMP #### [facility] [address] [place] [address] Dr. Chi Keith ALT [Catalytic activity/Vol] 35 U/L Normal 14-59 [facility] Comment on above: Performed By: #### T 7, LIPID, TSH, CMP #### [facility] [address] [place] [address] Dr. Chi Keith Anion gap [Moles/Vol] 13.9 mmol/L Normal Th [facility] Comment on above: Performed By: #### T 7, LIPID, TSH, CMP #### [facility] [address] [place] [address] Dr. Chi Keith AST [Catalytic activity/Vol] 29 U/L Normal 15-37 [facility] Comment on above: Performed By: #### T 7, LIPID, TSH, CMP #### [facility] [address] [place] [address] Dr. Chi Keith Bilirubin [Mass/Vol] 0.6 mg/dL Normal 0.2-1.0 [facility] Comment on above: Performed By: #### T 7, LIPID, TSH, CMP #### [facility] [address] [place] [address] Dr. Chi Keith Calcium [Mass/Vol] 9.7 mg/dL Normal 8.5-10.1 [facility] Comment on above: Performed By: #### T 7, LIPID, TSH, CMP #### [facility] [address] [place] [address] Dr. Chi Keith Chloride [Moles/Vol] 106 mmol/L Normal 98-107 [facility] Comment on above: Performed By: #### T 7, LIPID, TSH, CMP #### [facility] [address] [place] [address] Dr. Chi Keith CO2 [Moles/Vol] 28.1 mmol/L Normal 21.0-32.0 [facility] Comment on above: Performed By: #### T 7, LIPID, TSH, CMP #### [facility] [address] [place] [address] Dr. Chi Keith Creatinine [Mass/Vol] 1.33 mg/dL Critically high 0.55-1.02 [facility] Comment on above: Performed By: #### T 7, LIPID, TSH, CMP #### [facility] [address] [place] [address] Dr. Chi Keith EGFR-AF CZECH 49 mL/min/1.73m2 Critically low >=60 [facility] Comment on above: Performed By: #### T 7, LIPID, TSH, CMP #### [facility] [address] [place] [address] Dr. Chi Keith EGFR-NON AF CZECH 41 mL/min/1.73m2 Critically low >=60 [facility] Comment on above: Performed By: #### T 7, LIPID, TSH, CMP #### [facility] [address] [place] [address] Dr. Chi Keith Globulin (S) [Mass/Vol] 3.8 g/dL Normal [facility] Comment on above: Performed By: #### T 7, LIPID, TSH, CMP #### [facility] [address] [place] [address] Dr. Chi Keith Glucose [Mass/Vol] 116 mg/dL Critically high 74-106 [place] Comment on above: Performed By: #### T 7, LIPID, TSH, CMP #### [facility] [address] [place] [address] Dr. Chi Keith Potassium [Moles/Vol] 4.0 mmol/L Normal 3.5-5.1 [facility] Comment on above: Performed By: #### T 7, LIPID, TSH, CMP #### [facility] [address] [place] [address] Dr. Chi Keith Protein [Mass/Vol] 6.9 g/dL Normal 6.4-8.2 [facility] Comment on above: Performed By: #### T 7, LIPID, TSH, CMP #### [facility] [address] [place] [address] Dr. Chi Keith Sodium [Moles/Vol] 144 mmol/L Normal 136-145 [facility] Comment on above: Performed By: #### T 7, LIPID, TSH, CMP #### [facility] [address] [address] [address] Chi Keith Urea nitrogen [Mass/Vol] 20.0 mg/dL Critically high 7.0-18.0 [facility] Comment on above: Performed By: #### T 7, LIPID, TSH, CMP #### [facility] [address] [address] [address] Chi Keith Urea nitrogen/Creatinine [Mass ratio] 15.0 mg/mg Normal [facility] Comment on above: Performed By: #### T 7, LIPID, TSH, CMP #### [facility] [address] [address] [address] Chi Keith TSHon 01-23-2023 TSH 0.995 uIU/mL Normal 0.358-3.74 0 [facility] Comment on above: Performed By: #### T 7, LIPID, TSH, CMP #### [facility] [address] [address] [address] Chi Keith Covid-19 PCR (CVDTB)on SARS-CoV-2 (COVID-19) RNA ALEXANDREA+probe Ql (Unsp spec) Detected Critically abnormal NOT DETECTED [facility] Comment on above: Result Comment: This test is not yet approved or cleared by the [place] FDA. When there are no FDA-approved or cleared tests available, and other criteria are met, FDA can make tests available under an emergency access mechanism called an Emergency Use Authorization (EUA). The EUA for this test is supported by the [place] [employer] Worker of Health and Human Service's declaration that [...] used). Performed By: #### I VINCE #### [facility] [address] [address] [address] Chi Keith INFLUENZA A AND B AGon 08-13 INFLUENZA A AG Negative Normal NEGATIVE SEE COMMENT [facility] Comment on above: Performed By: #### I VINCE #### [facility] [address] [place] [address] Dr. Chi Keith INFLUENZA B AG Negative Normal NEGATIVE SEE COMMENT [facility] Comment on above: Performed By: #### I VINCE #### [facility] [address] [place] [address] Dr. Chi Keith INTERNAL CONTROLS Within Normal Limits Normal Wi thin Normal Limits [facility] Comment on above: Performed By: #### I VINCE #### [facility] [address] [place] [address] Dr. Chi Keith CARDIAC ORV[place] ADMITon 022 CK [Catalytic activity/Vol] 34 U/L Normal 26-192 [facility] Comment on above: Performed By: #### I VINCE #### [facility] [address] [place] [address] Dr. Chi Keith CK.MB [Mass/Vol] 0.71 ng/mL Normal <=3.60 [facility] Comment on above: Performed By: #### I VINCE #### [facility] [address] [place] [address] Dr. Chi Keith HSTROP 11.6 pg/mL Normal 4.0-51.3 [facility] Comment on above: Result Comment: CUT- OFF POINTS HAVE BEEN ESTABLISHED BASED ON THE FOURTH UNIVERSAL DEFINITIONS OF MYOCARDIAL INFARCTION. THE UPPER REFERENCE LIMIT (URL) OF TROPONIN, DEFINED THE 99TH PERCENTILE OF cTnI DISTRIBUTION IN A REFERENCE POPULATION, HAS BEEN CONFIRMED THE DECISION THRESHOLD FOR [place] DIAGNOSIS. Performed By: #### I VINCE #### [facility] [address] [place] [address] Dr. Chi Keith FAUSTO 57 ng/mL Normal 9-82 [facility] Comment on above: Performed By: #### I VINCE #### [facility] [address] [place] [address] Dr. Chi Keith CBC AUTO DIFFon 04-09-2022 BASO # 0.0 103/ul Normal 0.0-0.1 [facility] Comment on above: Performed By: #### I VINCE #### [facility] [address] [address] [address] Chi Keith Basophils/100 WBC (Bld) 0.4 % Normal 0.2-2.0 [facility] Comment on above: Performed By: #### I VINCE #### [facility] [address] [place] [address] Dr. Chi Keith EO # 0.1 103/ul Normal 0.0-0.7 [facility] Comment on above: Performed By: #### I VINCE #### [facility] [address] [place] [address] Dr. Chi Keith Eosinophils/100 WBC (Bld) 0.7 % Critically low 0.9-7.0 [facility] Comment on above: Performed By: #### I VINCE #### [facility] [address] [place] [address] Dr. Chi Keith Erythrocyte distribution width (RBC) [Ratio] 14.5 % Normal 11.0-15.0 [facility] Comment on above: Performed By: #### I VINCE #### [facility] [address] [place] [address] Dr. Chi Keith Hematocrit (Bld) [Volume fraction] 42.1 % Normal 36.0-48.0 [facility] Comment on above: Performed By: #### I VINCE #### [facility] [address] [place] [address] Dr. Chi Keith Hemoglobin (Bld) [Mass/Vol] 13.5 g/dL Normal 12.0-16.0 [facility] Comment on above: Performed By: #### I VINCE #### [facility] [address] [place] [address] Dr. Chi Keith IG # 0.03 10e3/ul Normal 0.00-0.03 [facility] Comment on above: Performed By: #### I VINCE #### [facility] [address] [place] [address] Dr. Chi Keith IG % 0.3 % Normal 0.0-0.5 [facility] Comment on above: Performed By: #### I VINCE #### [facility] [address] [place] [address] Dr. Chi Keith LYMPH # 1.8 103/ul Normal 1.2-3.8 [facility] Comment on above: Performed By: #### I VINCE #### [facility] [address] [place] [address] Dr. Chi Keith Lymphocytes/100 WBC (Bld) 18.3 % Critically low 20.5-60.0 [facility] Comment on above: Performed By: #### I VINCE #### [facility] [address] [place] [address] Dr. Chi Keith MANUAL DIFF REQ NO Normal [facility] Comment on above: Performed By: #### I VINCE #### [facility] [address] [place] [address] Dr. Chi Keith MCH (RBC) [Entitic mass] 30.5 pg Normal 26.7-34.0 [facility] Comment on above: Performed By: #### I VINCE #### [facility] [address] [place] [address] Dr. Chi Keith MCHC (RBC) [Mass/Vol] 32.1 g/dL Normal 29.9-35.2 [facility] Comment on above: Performed By: #### I VINCE #### [facility] [address] [place] [address] Dr. Chi Keith MCV (RBC) [Entitic vol] 95.2 fL Normal 81.0-99.0 [facility] Comment on above: Performed By: #### I VINCE #### [facility] [address] [place] [address] Dr. Chi Keith MONO # 0.6 103/ul Normal 0.3-0.8 [facility] Comment on above: Performed By: #### I VINCE #### [facility] [address] [place] [address] Dr. Chi Keith Monocytes/100 WBC (Bld) 6.3 % Normal 1.7-12.0 [facility] Comment on above: Performed By: #### I VINCE #### [facility] [address] [place] [address] Dr. Chi Keith NEUT # 7.5 103/ul Critically high 1.4-6.5 [facility] Comment on above: Performed By: #### I VINCE #### [facility] [address] [address] [address] Chi Keith Neutrophils/100 WBC (Bld) 74.0 % Normal 43.0-75.0 [facility] Comment on above: Performed By: #### I VINCE #### [facility] [address] [address] [address] Chi Keith Platelet mean volume (Bld) [Entitic vol] 9.3 fL Critically low 9.5-13.5 [facility] Comment on above: Performed By: #### I VINCE #### [facility] [address] [place] [address] Dr. Chi Keith PLT 316 103/ul Normal 150-450 [facility] Comment on above: Performed By: #### I VINCE #### [facility] [address] [address] [address] Chi Keith RBC 4.42 106/ul Normal 4.20-5.40 [facility] Comment on above: Performed By: #### I VINCE #### [facility] [address] [place] [address] Dr. Chi Keith WBC 10.1 103/ul Normal 4.0-11.0 [facility] Comment on above: Performed By: #### I VINCE #### [facility] [address] [place] [address] FACIAL BONES WO [...] SUNIL THOMPSON Date: 2022-04-09 15:58 Normal [facility] [address] HEAD WO CONon 04-09-2022 CT HEAD [...] SUNIL THOMPSON Date: 2022-04-09 15:51 Normal [facility] ER URINE PROFILEon 2 Bilirubin Ql (U) MODERATE Abnormal NEGATIVE [facility] Comment on above: Performed By: #### I VINCE #### [facility] [address] [place] [address] Dr. Chi Keith Clarity (U) CLEAR Normal CLEAR [facility] Comment on above: Performed By: #### I VINCE #### [facility] [address] [address] [address] Chi Keith Color (U) DK. YELLOW Normal YELLOW [facility] Comment on above: Performed By: #### I VINCE #### [facility] [address] [place] [address] Dr. Chi BARRY A micrscopic examina tion will be performed if indicated. Normal [facility] Comment on above: Performed By: #### I VINCE #### [facility] [address] [place] [address] Dr. Chi Keith Glucose Ql (U) Negative Normal NEGATIVE [facility] Comment on above: Performed By: #### I VINCE #### [facility] [address] [place] [address] Dr. Chi Keith Hemoglobin Ql (U) TRACE-INTACT Abnormal NEGATIVE [facility] Comment on above: Performed By: #### I VINCE #### [facility] [address] [place] [address] Dr. Chi Keith Ketones Ql (U) 15 mg/dl Abnormal NEGATIVE [facility] Comment on above: Performed By: #### I VINCE #### [facility] [address] [place] [address] Dr. Chi Keith LEUKOCYTES Negative Normal NEGATIVE [facility] Comment on above: Performed By: #### I VINCE #### [facility] [address] [place] [address] Dr. Chi Keith Nitrite Ql (U) Negative Normal NEGATIVE [facility] Comment on above: Performed By: #### I VINCE #### [facility] [address] [place] [address] Dr. Chi Keith pH (U) 5.5 [pH] Normal 5-9 [facility] Comment on above: Performed By: #### I VINCE #### [facility] [address] [place] [address] Dr. Chi Keith Protein (U) [Mass/Vol] 30 mg/dL Abnormal NEGATIVE/ TRACE [facility] Comment on above: Performed By: #### I VINCE #### [facility] [address] [place] [address] Dr. Chi Keith SPEC GRAVITY >=1.030 Abnormal 1.005-<=1. 025 [facility] Comment on above: Performed By: #### I VINCE #### [facility] [address] [place] [address] Dr. Chi Keith UR MICRO IND INDICATED Normal [facility] Comment on above: Performed By: #### I VINCE #### [facility] [address] [place] [address] Dr. Chi Keith Urobilinogen Qn (U) 1.0 {Mani'U}/dL Normal 0.2 - 1. 0 [facility] Comment on above: Performed By: #### I VINCE #### [facility] [address] [place] [address] Dr. Chi Keith PROF 14(COMP METB)on 022 Albumin [Mass/Vol] 3.3 g/dL Critically low 3.4-5.0 [facility] Comment on above: Performed By: #### C MELISSA CMP, TSH #### [facility] [address] [place] [address] Dr. Chi Keith Albumin/Globulin [Mass ratio] 0.9 {ratio} Normal [facility] Comment on above: Performed By: #### C THERESE TORRES, TSH #### [facility] [address] [place] [address] Dr. Chi Keith ALP [Catalytic activity/Vol] 87 U/L Normal 46-116 [facility] Comment on above: Performed By: #### C MADVictor Hugo CMP, TSH #### [facility] [address] [place] [address] Dr. Chi Keith ALT [Catalytic activity/Vol] 34 U/L Normal 14-59 [facility] Comment on above: Performed By: #### C MELISSA CMP, TSH #### [facility] [address] [place] [address] Dr. Chi Keith Anion gap [Moles/Vol] 12.2 mmol/L Normal [facility] Comment on above: Performed By: #### C MADM CMP, TSH #### [facility] [address] [place] [address] Dr. Chi Keith AST [Catalytic activity/Vol] 16 U/L Normal 15-37 [facility] Comment on above: Performed By: #### C THERESE TORRES, TSH #### [facility] [address] [address] [address] Chi Keith Bilirubin [Mass/Vol] 0.6 mg/dL Normal 0.2-1.0 [facility] Comment on above: Performed By: #### C THERESE TORRES, TSH #### [facility] [address] [address] [address] Chi Keith Calcium [Mass/Vol] 9.8 mg/dL Normal 8.5-10.1 [facility] Comment on above: Performed By: #### C THERESE TORRES, TSH #### [facility] [address] [place] [address] Dr. Chi Keith Chloride [Moles/Vol] 106 mmol/L Normal 98-107 [facility] Comment on above: Performed By: #### C THERESE TORRES, TSH #### [facility] [address] [place] [address] Dr. Chi Keith CO2 [Moles/Vol] 27.9 mmol/L Normal 21.0-32.0 [facility] Comment on above: Performed By: #### C THERESE TORRES, TSH #### [facility] [address] [place] [address] Dr. Chi Keith Creatinine [Mass/Vol] 1.13 mg/dL Critically high 0.55-1.02 [facility] Comment on above: Performed By: #### C THERESE TORRES, TSH #### [facility] [address] [place] [address] Dr. Chi Keith EGFR-AF CZECH =60 Normal >=60 [facility] Comment on above: Performed By: #### C THERESE TORRES, TSH #### [facility] [address] [place] [address] Dr. Chi Keith EGFR-NON AF CZECH 49 mL/min/1.73m2 Critically low >=60 [facility] Comment on above: Performed By: #### C THERESE TORRES, TSH #### [facility] [address] [address] [address] Chi Keith Globulin (S) [Mass/Vol] 3.8 g/dL Normal [facility] Comment on above: Performed By: #### C MADM, CMP, TSH #### [facility] [address] [address] [address] Chi Keith Glucose [Mass/Vol] 115 mg/dL Critically high 74-106 [place] Comment on above: Performed By: #### C MADM, CMP, TSH #### [facility] [address] [address] [address] Chi Keith Potassium [Moles/Vol] 4.1 mmol/L Normal 3.5-5.1 [facility] Comment on above: Performed By: #### C MADM, CMP, TSH #### [facility] [address] [place] [address] Dr. Chi Keith Protein [Mass/Vol] 7.1 g/dL Normal 6.4-8.2 [facility] Comment on above: Performed By: #### C MADM, CMP, TSH #### [facility] [address] [address] [address] Chi Keith Sodium [Moles/Vol] 142 mmol/L Normal 136-145 [facility] Comment on above: Performed By: #### C MADM, CMP, TSH #### [facility] [address] [address] [address] Chi Keith Urea nitrogen [Mass/Vol] 21.0 mg/dL Critically high 7.0-18.0 [facility] Comment on above: Performed By: #### C MADM, CMP, TSH #### [facility] [address] [place] [address] Dr. Chi Keith Urea nitrogen/Creatinine [Mass ratio] 18.6 mg/mg Normal [facility] Comment on above: Performed By: #### C MADM, CMP, TSH #### [facility] [address] [address] [address] Chi Keith PROTIMEon 04-09-2022 INR Coag (PPP) [Relative time] 0.97 {INR} Normal [facility] Comment on above: Performed By: #### I VINCE #### [facility] [address] [place] [address] Dr. Chi Keith INR GUIDELINES SEE BELOW Normal [facility] Comment on above: Result Comment: LISA RED INR: 2.0 - 3.0 CONDITIONS NOT LISTED BELOW 2.5 - 3.5 FOR PROSTHETIC HEART VALVE REPLACEMENT 2.5 - 3.5 RECURRENT THROMBOSIS Performed By: #### I VINCE #### [facility] [address] [place] [address] Dr. Chi Keith PT Coag (PPP) [Time] 10.5 s Normal 9.0-11.6 [facility] Comment on above: Performed By: #### I VINCE #### [facility] [address] [place] [address] Dr. Chi Keith PTTon 04-09-2022 aPTT Coag (Bld) [Time] 23.1 s Normal 22.3-36.2 [facility] Comment on above: Performed By: #### I VINCE #### [facility] [address] [place] [address] Dr. Chi Keith TSHon 04-09-2022 TSH 0.511 uIU/mL Normal 0.358-3.74 0 [facility] Comment on above: Performed By: #### C MADM, CMP, TSH #### [facility] [address] [place] [address] Dr. Chi Keith URINE MICROSCOPIC ONLYon BACTERIA TRACE Abnormal NONE SEEN [facility] Comment on above: Performed By: #### I VINCE #### [facility] [address] [place] [address] Dr. Chi Keith Bacteria identified Cx Nom (U) NOT INDICATED Normal [facility] Comment on above: Performed By: #### I VINCE #### [facility] [address] [place] [address] Dr. Chi Keith CAST SEEN Abnormal NONE SEEN [facility] Comment on above: Performed By: #### I VINCE #### [facility] [address] [address] [address] Chi Keith Crystals LM Nom (Urine sed) NONE SEEN Normal NONE SEEN [facility] Comment on above: Performed By: #### I VINCE #### [facility] [address] [address] [address] Chi Keith Epithelial cells LM Ql (Urine sed) FEW Abnormal NONE SEEN /RARE [facility] Comment on above: Performed By: #### I VINCE #### [facility] [address] [address] [address] Chi Keith HYALINE CAST RARE Normal [facility] Comment on above: Performed By: #### I VINCE #### [facility] [address] [address] [address] Chi Keith MUCOUS SMALL Abnormal NONE SEEN [facility] Comment on above: Performed By: #### I VINCE #### [facility] [address] [address] [address] Cih Keith RBC 2-5 Abnormal 0-2 [facility] Comment on above: Performed By: #### I VINCE #### [facility] [address] [address] [address] Chi Keith WBC 0-2 Abnormal NONE SEEN [facility] Comment on above: Performed By: #### I VINCE #### [facility] [address] [place] [address] Dr. Chi Keith Cardiovascular Lab Reporton 05-11-2017 Cardiovascular Lab Report [facility] Patient Name: Melissa Dubose MR #: [id number] Center Physician: Justine Grimes M.D.Department of Service Date: 05/10/2017Medicine Birthdate: [birth year]Division of Room #: [facility] CardiovascularServices[address] [address]Nilhy Fax Cardiovascular Laboratory ReportINDICATION:Melissa Dubose is a [...] She signedinformed consent. She was brought to rd lab technician in a fasting state. Theright groin area was prepped and draped in usual fashion. Usingmicropuncture technique, the right common femoral artery was accessed. Theinner cannula was advanced. Limited right femoral angiography wasperformed followed by upsizing to a 6-Turkmen x 11 cm sheath. Bilateralselective renal angiography was then performed using 6-Turkmen JL4 and VH8berjexwhvd catheters. The 6-Turkmen JR4 diagnostic catheter was used toselectively engage the saphenous venous graft to the OM and the radialgraft to the PDA. Angiography was performed. Catheter was exchanged to a6-Turkmen CYNTHIA catheter, which was used to selectively [...] by:Justine Grimes M.D. 06/01/2017 08:16 A Justine Girmes M.D.Date Dict: 05/10/2017/01:01 P/Justine Grimes M.D.Date Trans: 05/11/2017 09:53 [id number]/[id number]: Madison Mccormack M.D. [address], [facility] [id number] [facility] Vital Signs Date Time Vital Sign Value Performing Clinician Viviane headley 11-25-2023 11:01-0400 Body temperature 97.7 [degF] MD Madison Mccormack Work Phone: [facility] 11-25-2023 11:01-0400 Diastolic blood pressure 65 mm[Hg] MD Madison Mccormack Work Phone: [facility] 11-25-2023 11:01-0400 Heart rate 90 /min MD Madison Mccormack Work Phone: [facility] 11-25-2023 11:01-0400 Respiratory rate 16 /min MD Madison Mccormack Work Phone: [facility] 11-25-2023 11:01-0400 SaO2% (BldA) [Mass fraction] 97 % MD Madison Mccormack Work Phone: [facility] 11-25-2023 11:01-0400 Systolic blood pressure 108 mm[Hg] MD Madison Mccormack Work Phone: [facility] 11-25-2023 06:00-0400 Body weight 103 kg MD Madison Mccormack Work Phone: [facility] 11-24-2023 20:00-0400 Inhaled oxygen flow rate 2 L/min MD Madison Mccormack Work Phone: [facility] 11-21-2023 14:58-0400 Body height 177.8 cm MD Madison Mccormack Work Phone: [facility] Encounters Encounter Date Encounter Type Care Provider Facility Start: 02-19-2024 End: 02-19-2024 ambulatory [facility] Start: 01-17-2024 ambulatory [facility] Start: 01-17-2024 End: 01-17-2024 ambulatory [facility] Start: 12-27-2023 ambulatory [facility] Start: 12-11-2023 End: 12-11-2023 ambulatory [facility] [facility] Start: 11-21-2023 End: 11-25-2023 Evaluation and management of inpatient Jaimie Mischler Facility:[facility] Start: 11-21-2023 Non-patient / Non-visit MD Umesh Mccormack Work Phone: [facility] Work Phone: Start: 11-21-2023 End: 11-25-2023 Evaluation and management of inpatient MD Madison Mccormack Work Phone: [facility] [place] [facility] Work Phone: Start: 04-05-2023 End: 04-05-2023 ambulatory [facility] Start: 01-23-2023 End: 01-24-[address] MADISON MCCORMACK . Facility: Start: 08-13-2022 End: 08-13-[address] MADISON MCCORMACK . Facility: Start: 04-09-2022 End: 04-09-2022 ambulatory MYKE CANTU . Facility: Start: 05-10-2017 End: 05-11-2017 Ambulatory PROVIDER UNKNOWN Facility:[facility] Start: 05-07-2017 End: 05-08-2017 Ambulatory DEFAULT PHYSICIAN Facility:[facility] Procedures Date Procedure Procedure Detail Performing Clinician [...] Date Care Activity Detail Author Start: 11-25-2023 [facility] Start: 11-21-2023 Hospital admission [facility] Start: 11-21-2023 Referral to Information Operator [facility] Patient Education Atrial Fibrill ation (DC) Heart Failure, Adult (DC) Flu, Adult (DC) Going Home on Blood Thinners [facility] Work Phone: Patient referral [facility] Work Phone: Payers Date Payer Category Payer Self-pay 1960 Unknown [id number] 1960 Unknown [id number] [id number] 1960 Unknown [id number] 1957 Medicare [id number] Medicare [id number] Unknown Unknown MMO [id number] Unknown [id number] [id number] Social History Date Type Detail Facility Start: 11-22-2023 Tobacco smoking stat us NHIS Ex-smoker (finding) [facility] Start: 1960 Sex Assigned At Female F [facility] Goals Date Patient Goal Desired Activity /State Functional Status Date Assessment Result Facility 11-25-2023 Functional status Patient at Baseline [facility] Work Phone: Mental Status Date Assessment Result Facility 11-25-2023 Cognitive function Cognitive Sta tus Patient at Baseline [facility] Work Phone: Clinical Notes 04-05-2023 to 02-19-2024 Note Date & Type Note Facility 02-19-2024 Note [facility] Note Reason for cardiology [...] ventricular response. She underwent cardiac catheterization at [facility] which showed patent bypass grafts. She was [...] Global left v (more content not included)... [facility] 01-17-2024 Note ------ Attestation signed by Ria [...] No hemodynamic complications noted. 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 She underwent cardiac catheterization at [facility] which showed patent bypass grafts. She was [...] T wave abn (more content not included)... [facility] 12-11-2023 Note Cardiovascular Medic ine [facility] SUBJECTIVE Chief Complaint Patient presents with [...] -New onset a.fib with RVR -Tx to [facility] -> cardiac cath showed grafts were widely [...] admitted. Prior HPI per Dr. Grimes: Melissa Duobse is a 62 y.o. year old female past medical history of coronary artery disease status post 3vCABG (patent grafts on angiography in 2017), hypertension, hyperlipidemia, and type 2 diabetes mellitus seen in follow-up. Visit of 12/25/2017: Most recently she was admitted to [facility] with uncontrolled BP and chest pain and [...] on exertion and (more content not included)... [facility] 11-25-2023 Discharge summary Note Date/Time November 25, 2023 1:11pm [facility] [address] [place] [address] Discharge Summary Signed Patient: Melissa Dubose MR#: [id number] : 1960 Acct:[id number] Age/Sex: 63 / F Adm Date: 4 Loc: Room: [address] [place] [address]: Johnny Bernal MD Copies to: [...] who presented to the emergency department at [facility] with chest pain, shortness of breath, [...] will befollowed by her PCP and her program management specialist. Time Spent with Patient Time spent providing/coordinating [...] Low-Cholesterol Additional Instructions: DISCHARGE INSTRUCTIONS FOR CARDIAC CLINICAL TECHNICIAN PROCEDURE: Heart Cath The following instructions have [...] cold, numb, blue or white, call the program management specialist immediately. 4. ACTIVITY: You are advised to [...] bottle, follow the instructions on the bottle. [facility] is not responsible for incorrect prescription information [...] tablet 1 tab PO Q12HR Follow Up: [facility] [Provider Group] - 12/11/23 11:00 [...] needed.) Documented By: Johnny Bernal MD 11/25/23 1306 Signed By: <Electronically signed by Johnny Bernal MD> 11/25/23 1610 [facility] Work Phone: 1(342) 659-401903-17-2024 Progress note Author Winter Norrsi [facility] November 24, 2023 10:00am Note Date/Time November 24, 2023 9:[facility] [address] [place] [address] Hospitalist Progress Note Signed Patient: Melissa Dubose MR#: [id number] : 1960 Acct:[id number] Age/Sex: 63 / F Adm Date: 4 Loc: 4 Room: [address] [place] [address] Type: ADM IN Attending Dr: Winter Norris [...] 86% on room air upon arrival to [facility] emergency room, 4 L nasal cannula applied [...] PT/OT. Documented By: Winter Norris MD 11/24/23 0729 Signed By: <Electronically signed by Winter Norris MD> 11/24/23 1000 [facility] Work Phone: 1(959) 149-977603-16-2024 Progress note Author Justine Jacobo [facility] November 23, 2023 1:38pm Note Date/Time November 23, 2023 1:2 9pm [facility] [address] [place], [place] [id number] Cardiology Progress Note Signed Patient: Melissa Dubose MR#: [id number] : 1960 Acct:[id number] Age/Sex: 63 / F Adm Date: 4 Loc: Room: [address] [place] [address] Type: ADM IN Attending Dr: Winter Norris [...] % (Auto) 72.7 Lymph % (Auto) 17.7 Dillon % (Auto) 9.5 Eos % (Auto) 0.0 Baso % (Auto) 0.1 Nucleat RBC Rel Count 0.1 Neut # (Auto) 7.0 Lymph # (Auto) 1.7 Dillon # (Auto) 0.9 H Eos # (Auto) [...] MPV Neut % (Auto) Lymph % (Auto) Dillon % (Auto) Eos % (Auto) Baso % (Auto) Nucleat RBC Rel Count Neut # (Auto) Lymph # (Auto) Dillon # (Auto) Eos # (Auto) Baso # [...] bypass graft (4) Coronary artery disease involving te-moak coronary artery of te-moak heart without angina pectoris: Code(s): I25.10 - Atherosclerotic heart disease of te-moak coronary artery without angina pectoris (5) Myocardial injury: Code(s): I5A - Non-ischemic myocardial injury (non-traumatic) Plan # Admitted for cough and SOB 2/2 Influenza A infection # Mild acute HF in setting of HFrEF due to dilated ischemic cardiomyopathy - NYHA II, ACC C. # Moderate to severe MR # Paroxysmal nonvalvular Atrial fibrillation - Rate controlled. [id number] = 5. # Non-ACS troponin elevation due to myocardial injury - Secondary to influenza and mild acute heart failure. # CAD s/p 3v CABG (done ~2013) - No angina. [facility] this admission shows patent grafts. # Other: T2DM, HTN. Echo 11/21/23 - EF 25%, severe LV dilation, severely dilated LA, moderately dilated RA, moderate to severe MR, mild TR, RVSP 60 mmHg consistent with severe pulmonary hypertension, moderately dilated IVC, PFO by color Doppler. LHC 11/22/23 - Severe te-moak coronary artery disease with patent grafts BALLESTEROS [...] up with her primarycardiologist Dr. Dukes at [facility] in 1-2 weeks. Documented By: Justine Jacboo MD 11/07 03/02 1327 Signed By: <Electronically signed by Justine Jacobo MD> 11/23/23 6543 [facility] Work Phone: 1(693) 209-980003-16-2024 Progress note Author Winter Norris [facility] November 23, 2023 10:04am Note Date/Time November 23, 2023 9:5 4am [facility] [address] [place] [address] Hospitalist Progress Note Signed Patient: Melissa Dubose MR#: [id number] : 1960 Acct:[id number] Age/Sex: 63 / F Adm Date: 4 Loc: Room: [address] [place] [address] Type: ADM IN Attending Dr: Winter Norris [...] 86% on room air upon arrival to [facility] emergency room, 4 L nasal cannula applied [...] signed by Winter Norris MD> 11/23/23 1004 [facility] Work Phone: 1(581) 373-743303-15-2024 Progress note Author Jayne Vallecillo [facility] November 22, 2023 3:26pm Note Date/Time November 22, 2023 3:1 5pm [facility] [address] [place] [address] Cardiology Progress Note Signed Patient: Melissa Dubose MR#: [id number] : 1960 Acct:[id number] Age/Sex: 63 / F Adm Date: 4 Loc: Room: [address] [place] [address] Type: ADM IN Attending Dr: Winter Norris [...] MPV Neut % (Auto) Lymph % (Auto) Dillon % (Auto) Eos % (Auto) Baso % (Auto) Nucleat RBC Rel Count Neut # (Auto) Lymph # (Auto) Dillon # (Auto) Eos # (Auto) Baso # (Auto) PT INR APTT 152.4 H* 47.2 H PHA Creatinine Clear Sodium Potassium Chloride Carbon Dioxide Anion Gap BUN Creatinine Est GFR (CKD-EPI) POC Glucose 345 POC Glucose Comment Urine Color Urine Appearance Urine pH Ur Specific [place] Urine Protein Urine Glucose (UA) Urine Ketones Urine Occult Blood Urine Nitrite Urine Bilirubin Urine Urobilinogen Ur Leukocyte Esterase Urine RBC Urine WBC Ur Squamous Epith Cells Urine Bacteria Hyaline Casts 11/21/23 11/21/23 11/21/23 18:15 20:45 20:45 Corrected WBC Uncorrected WBC Count RBC Hgb Hct MCV MCH MCHC RDW Plt Count MPV Neut % (Auto) Lymph % (Auto) Dillon % (Auto) Eos % (Auto) Baso % (Auto) Nucleat RBC Rel Count Neut # (Auto) Lymph # (Auto) Dillon # (Auto) Eos # (Auto) Baso # (Auto) PT INR APTT PHA Creatinine Clear Sodium Potassium Chloride Carbon Dioxide Anion Gap BUN Creatinine Est GFR (CKD-EPI) POC Glucose 405 H* POC Glucose Comment Cleaned meter Urine Color Yellow Urine Appearance Clear Urine pH 5.5 Ur Specific [place] 1.012 Urine Protein Negative Urine Glucose (UA) [...] % (Auto) 81.3 Lymph % (Auto) 10.0 Dillon % (Auto) 8.6 Eos % (Auto) 0.0 Baso % (Auto) 0.1 Nucleat RBC Rel Count 0.1 Neut # (Auto) 5.3 Lymph # (Auto) 0.6 L Dillon # (Auto) 0.6 Eos # (Auto) 0.0 Baso # (Auto) 0.0 PT 14.0 H INR 1.2 APTT 27.6 PHA Creatinine Clear 68.56 Sodium 138 Potassium 4.7 Chloride 103 Carbon Dioxide 28.3 Anion Gap 11.4 BUN 24 Creatinine 1.15 Est GFR (CKD-EPI) 54.198 POC Glucose 354 POC Glucose Comment Will repeat test Urine Color Urine Appearance Urine pH Ur Specific [place] Urine Protein Urine Glucose (UA) Urine Ketones Urine Occult Blood Urine Nitrite Urine Bilirubin Urine Urobilinogen Ur Leukocyte Esterase Urine RBC Urine WBC Ur Squamous Epith Cells Urine Bacteria Hyaline Casts 11/22/23 11:31 Corrected WBC Uncorrected WBC Count RBC Hgb Hct MCV MCH MCHC RDW Plt Count MPV Neut % (Auto) Lymph % (Auto) Dillon % (Auto) Eos % (Auto) Baso % (Auto) Nucleat RBC Rel Count Neut # (Auto) Lymph # (Auto) Dillon # (Auto) Eos # (Auto) Baso # (Auto) PT INR APTT PHA Creatinine Clear Sodium Potassium Chloride Carbon Dioxide Anion Gap BUN Creatinine Est GFR (CKD-EPI) POC Glucose 181 POC Glucose Comment Urine Color Urine Appearance Urine pH Ur Specific [place] Urine Protein Urine Glucose (UA) Urine Ketones [...] bypass graft (4) Coronary artery disease involving te-moak coronary artery of te-moak heart without angina pectoris: Code(s): I25.10 - Atherosclerotic heart disease of te-moak coronary artery without angina pectoris (5) Myocardial injury: Code(s): I5A - Non-ischemic myocardial injury (non-traumatic) Plan # Mild acute HF in setting of newly diagnosed HFrEF due to undefined cardiomyopathy # Dilated ischemic cardiomyopathy EF 25% # Moderate to severe MR # Atrial fibrillation [id number] = 5 # Influenza A infection # [...] Recommendations: - LHC completed today shows severe te-moak coronary artery disease with patent grafts BALLESTEROS [...] <Electronically signed by Jayne Vallecillo MD> 11/22/23 152 [facility] Work Phone: 1(688) 823-934503-15-2024 Consult note Author W Devang [facility] November 22, 2023 2:25pm Note Date/Time November 22, 2023 2:2 5pm [facility] [address] [place] [address] Cardiology Consult Note Signed Patient: Melissa Dubose MR#: [id number] : 1960 Acct:[id number] Age/Sex: 63 / F Adm Date: 4 Loc: Room: [address] [place] [address] Type: ADM IN Attending Dr: Winter Norris [...] Patient had bypass surgery in 2013 at [facility], routinely follows with Dr. Grimes. She presents [...] in LV function specifically evaluate graft and te-moak and coronary anatomy for treatable targets. Review of Systems Review of Systems All other systems reviewed & are negative unless noted below or in HPI Constitutional Constitutional: Reports as per HPI, Reports fatigue and Reports weakness Cardiovascular Cardiovascular: Reports chest pain at rest, Reports dyspnea and Reports orthopnea Respiratory Respiratory: Reports as per HPI [facility] Medical History Myocardial infarction Hypertension Diabetes Surgical History History of back surgery Hx of CABG 3 vessel at [facility] Family History Mother Diabetes Paternal Grandfather Pancreatic [...] Lymph # (Auto) 0.6 L (1.00-4.8) x10E3/uL Dillon # (Auto) 0.6 (0.0-0.8) x10E3/uL Eos # [...] bypass graft (4) Coronary artery disease involving te-moak coronary artery of te-moak heart without angina pectoris: Code(s): I25.10 - Atherosclerotic heart disease of te-moak coronary artery without angina pectoris (5) Myocardial injury: Code(s): I5A - Non-ischemic myocardial injury (non-traumatic) Plan Proceed with left heart catheterization plus minus revascularization Documented By: Hernan Siddiqi DO 11/22/23 1417 Signed By: <Electronically signed by Hernan Siddiqi, DO> 11/22/23 1425 [facility] Work Phone: 1(726) 322-250303-15-2024 [facility] Progress note Author Winter Norris [facility] November 22, 2023 10:05am Note Date/Time November 22, 2023 10: 01am [facility] [address] [place] [address] Hospitalist Progress Note Signed Patient: Melissa Dubose MR#: [id number] : 1960 Acct:[id number] Age/Sex: 63 / F Adm Date: 4 Loc: Room: [address] [place] [address] Type: ADM IN Attending Dr: Winter Norris [...] 86% on room air upon arrival to [facility] emergency room, 4 L nasal cannula applied [...] <Electronically signed by Winter Norris MD> 11/22/23 7188 [facility] Work Phone: 1(431) 775-758903-14-2024 Consult note Author Justine Jacobo [facility] November 21, 2023 4:39pm Note Date/Time November 21, 2023 3:0 2pm [facility] [address] [place] [address] Cardiology Consult Note Signed Patient: Melissa Dubose MR#: [id number] : 1960 Acct:[id number] Age/Sex: 63 / F Adm Date: 4 Loc: Room: 6Z3808-8 Type: ADM IN Attending Dr: Winter Norris MD Copies to: MD Justine West MD Mazhar Rahman, MD~ Cardiology HPI History of Present Illness Consult Date: 11/21/23 HPI: Ms. Dubose is a 63 year old female with the PMH below ike presented to the [facility] [place] ER for chest pain, SOB, cough and [...] easy bleeding, ecchymosis. Skin: Denies rashes, pruritus. [facility] Medical History Myocardial infarction Hypertension Diabetes Surgical History History of back surgery Hx of CABG 3 vessel at [facility] Family History Mother Diabetes Paternal Grandfather Pancreatic [...] Lymph # (Auto) 0.3 L (1.00-4.8) x10E3/uL Dillon # (Auto) 0.1 (0.0-0.8) x10E3/uL Eos # [...] bypass graft (4) Coronary artery disease involving te-moak coronary artery of te-moak heart without angina pectoris: Code(s): I25.10 - Atherosclerotic heart disease of te-moak coronary artery without angina pectoris (5) Myocardial [...] <Electronically signed by Justine Jacobo MD> 11/21/23 6043 [facility] Work Phone: 1([phone]) 124-777003-14-2024 Progress note Author Winter Norris [facility] November 21, 2023 12:12pm Note Date/Time November 21, 2023 12: 09pm [facility] [address] [place] [address] Event Note Signed Patient: Melissa Dubose MR#: [id number] : 1960 Acct:[id number] Age/Sex: 63 / F Adm Date: 4 Loc: Room: [address] [place] [address] Type: ADM IN Attending Dr: Winter Norris [...] signed by Winter Norris MD> 11/21/23 1212 [facility] Work Phone: 1([phone]) 584-669303-14-2024 History and physical note Author Isaac Greenwood [facility] November 21, 2023 5:31am Note Date/Time November 21, 2023 3:0 1am [facility] [address] [place] [address] Hospitalist H&P Signed Patient: Melissa Dubose MR#: [id number] : 1960 Acct:[id number] Age/Sex: 63 / F Adm Date: 4 Loc: Room: [address] [place] [address] Type: ADM IN Attending Dr: Isaac Greenwood DO Copies to: MD Karen West, JANELL Greenwood, DO~ HPI DATE OF EXAMINATION: 11/21/23 CHIEF COMPLAINT: Chest pain, sob, N/V/D, fever, cough HISTORY OF PRESENT ILLNESS: Ms. Dubose is a 63-year-old female that presented to the [facility] emergency room for complaints of chest pain, [...] CABG-3 vessel, T2DM, HTN. EKG at [facility] emergency room shows A-fib with RVR. She [...] 125 Solu-Medrol, Zofran Tamiflu. She follows with [facility] cardiology however they had no beds available. She agreed to transfer to the closest facility which is [facility]. Patient was transferred here to the progressive floor under the care of hospitalist team. Review of Systems Review of Systems Review of systems: A 10 point review of systems was obtained, negative unless noted in the HPI or below. [facility] Medical History (Updated 11/21/23 @ 03:40 by Karen Mays APRN) Myocardial infarction Hypertension Diabetes Surgical History (Updated 11/21/23 @ 03:31 by Karen Mays APRN) History of back surgery Hx of CABG 3 vessel at [facility] Family History (Updated 11/21/23 @ 03:31 by [...] 86% on room air upon arrival to [facility] emergency room, 4 L nasal cannula applied [...] signed by Isaac Greenwood DO> 11/21/23 0531 [facility] Work Phone: 1(328) 839-221007-28-2023 NoteSubjective Patient ID: Melissa Dubose is a [...] the past 36 hour(s)). No follow-ups on file.[facility]07-28-2023 Note Cardiology Clinic Note Subjective Melissa Dubose [...] 12/25/2017: Most recently she was admitted to [facility] with uncontrolled BP and chest pain and [...] mg by mouth in (more content not included)...[facility] Onset Date Resolution Status Acute hypoxic respiratory failure acute Atrial fibrillation acute Chest pain acute [id number] acute Diabetes acute Headache acute HFrEF (heart failure with reduced ejection fraction) acute Hypertension acute Influenza A acute Myocardial injury acute NSTEMI (non-ST elevated myocardial infarction) acute S/P CABG (coronary artery bypass graft) acute Shortness of breath acute [facility] Work Phone: Summary Purpose Family History No [...] respir atory failure Atrial fibrillation Chest pain [id number] Diabetes Headache HFrEF (heart failure with reduced ejection fraction) Hypertension Influenza A Myocardial injury NSTEMI (non-ST elevated myocardial infarction) S/P CABG (coronary artery bypass graft) Shortness of breath Additional Source Comments INFORMATION SOURCE (unrecogn ized section and content) DATE CREATED AUTHOR 03/05/2018 [facility] DATE CREATED AUTHOR AUTHOR'S ORGANIZ ATION 01/24/2023 [facility] DATE CREATED AUTHOR AUTHOR'S ORGANIZ ATION 12/18/2023 [facility] DATE CREATED AUTHOR AUTHOR'S ORGANIZ ATION 02/20/2024 [facility] Care Teams (unrecognized sec tion and content) [...] BE BASED ON THE PRIMARY CLINICAL RECORDS. [facility] [employer] [facility]. provides no warranty or guarantee of the accuracy or completeness of information in this document.
== END 2024-04-27 12:48 | disposition home or self-care (01) ==
LOC: CARD 12:47
PROVIDERS: PCP Family Medicine; Visit Provider Internal Medicine Interventional Cardiology
DX: I50.41 Acute combined systolic (congestive) and diastolic (congestive) heart failure (principal)
CPT/HCPCS: 93306

== ENCOUNTER 2024-05-01 12:17 | Outpatient (OUT) | payer MEDICARE, SELFPAY ==
[2024-05-01 13:01] LABS: Alanine Aminotransferase 20 U/L (14-59); Aspartate Amino Transferase 17 U/L (15-37); Chol HDL Ratio 3.3; Cholesterol 150 mg/dL (<=200); HDL Cholesterol 46 mg/dL (40-60); Triglycerides 155 mg/dL (<=150)
== END 2024-05-01 12:18 | disposition home or self-care (01) ==
LOC: LAB 12:19
PROVIDERS: PCP Family Medicine; Visit Provider Internal Medicine Cardiovascular Disease
DX: I25.10 Atherosclerotic heart disease of native coronary artery without angina pectoris (principal); E78.5 Hyperlipidemia, unspecified
CPT/HCPCS: 36415; 80061; 84450; 84460

== ENCOUNTER 2024-06-23 14:08 | Outpatient (OUT) | payer MEDICARE, SELFPAY ==
--- OUTSIDE RECORDS SUMMARY | 2024-06-23 14:26 | XMS_ITS | CCD ---
Author Organization [facility] Care Team Providers Care Puppet Maker Name Role Phone PHYSICIAN, DEFAULT Unavailable Unavailable PHYSICIAN, DEFAULT Unavailable Unavailable MADISON MCCORMACK Unavailable Unavailable UNKNOWN, PROVIDER Unavailable Unavailable UNKNOWN, PROVIDER Unavailable Unavailable MADISON MCCORMACK Unavailable Unavailable MADISON MCCORMACK Unavailable Unavailable PEPE Barr, MYKE Admitting Unavailable PEPE Barr, MYKE Attending Unavailable DR USNIL THOMPSON Consulting Unavailable HOY ., DR WALLACE Primary Care Unavailable JARETH ., MOON NEWTON Consulting Unavailabl e CHINO ., DR WALLACE Attending Unavailable HOY ., DR WALLACE Admitting Unavailable HOY ., DR WALLACE Primary Care Unavailable HOY ., DR WALLACE Consulting Unavailable HOY ., DR WALLACE Consulting Unavailable HOY ., DR WALLACE Attending Unavailable HOY ., DR WALLACE Admitting Unavailable CHINO ., DR WALLACE Primary Care Unavailable MD Madison Mccormack Primary Care Provider [phone] DO Isaac Greenwood Admit Provider MD Johnny Bernal Attending Provider Jaimie Lopez Consulting Unavailable Madison Mccormack Primary Care Unavailable Johnny Bernal Attending Unavailable Isaac Greenwood Admitting Unavailable Zach Jones Consulting Unavailable Justine Jacobo Consulting Jayne López Consulting Unavailable JUSTINE GRIMES Referring Unavailable JUSTINE GRIMES Referring Unavailable JUSTINE GRIMES Attending Unavailable TREVIN LEAL Attending Unavailable JUSTINE GRIMES Attending Unavailable ANGELLA WHITE Attending Unavailable JUSTINE GRIMES Referring Unavailable JUSTINE GRIMES Admitting Unavailable JUSTINE GRIMES Attending Unavailable Madison Mccormack Primary Care Physician Ashley Tariq Attending Unavailable Ashley Tariq Attending Unavailable Ashley Tariq Admitting Unavailable Benjy CAMPBELL Attending Unavailable Allergies Allergy Classification Reported Allergen(s) Allergy Type Date of Onset Reaction(s) Facility (1 source) acetaminophen / oxyCODONE Drug Allergy 6 [facility] Repository (1 source) No Known Allergies; Translations: [No Known Allergies] Propensity to adverse reactions (disorder) 7 [facility] Repository (1 source) Acetaminophen / oxyCODONE; Translations: [OXYCODONE-ACETAM INOPHEN] Drug Allergy 6 [facility] Repository Medications Current Medications Medication Drug Class(es) Dates Sig (Normalized) Sig (Original) amiodarone hydrochloride 200 mg oral tablet (2 sources) Antiarrhythmic Start: 06-02-2024 take 1 tablet by mouth once daily amiodarone 200 mg Tab 200 mg = 1 tab(s), Oral, Daily Start Date: 06/02/24 Status: Ordered aspirin 81 mg delayed release oral tablet (3 sources) Platelet Aggregation Inhibitor, Nonsteroidal Anti-inflammatory Drug Start: 06-02-2024 take 1 tablet by mouth once daily aspirin 81 mg Oral EC Tab 81 mg = 1 tab(s), Oral, Daily Start Date: 06/02/24 Status: Ordered Start: 11-25-2023 take 81 mg by mouth once daily Aspirin Active 81 MG PO Daily November 25, 2023 12:00am furosemide 20 mg oral tablet (1 source) Loop Diuretic Start: 11-25-2023 take 1 tablet by mouth once daily Furosemide (Lasix) 20 mg tablet Active 20 MG PO Daily November 25, 2023 12:00am lidocaine 0.05 mg/mg medicated patch (2 sources) Antiarrhythmic, Amide Local Anesthetic Start: 06-02-2024 lidocaine Top 5% film Patch 1 patch(es), Topical, Daily, apply 1 patch TO THE AFFECTED AREA(S) DAILY leave on for 12 hours and off for 12 hours Start Date: 06/02/24 Status: Ordered 24 hr metoprolol succinate 50 mg extended release oral tablet (3 sources) beta-Adrenergic Indra Start: 06-02-2024 take 1 tablet by mouth once daily metoprolol succinate 50 mg ER Tab 50 mg = 1 tab(s), Oral, Daily Start Date: 06/02/24 Status: Ordered Start: 11-25-2023 take 50 mg by mouth once daily Metoprolol Succinate Active 50 MG PO Daily 90 November 25, 2023 12:00am potassium chloride 10 meq extended release oral capsule (1 source) Start: 11-25-2023 take 10 mEq by mouth once daily Potassium Chloride Active 10 MEQ PO Daily November 25, 2023 12:00am sacubitril 97 mg / valsartan 103 mg oral tablet (3 sources) Angiotensin 2 Receptor Indra Start: 06-02-2024 take 1 tablet by mouth twice daily, then take 1 tablet by mouth twice daily at bedtime Entresto 97 mg-103 mg oral tablet 1 tab(s), Oral, BID, TAKE 1 TABLET BY MOUTH TWICE DAILY (IN THE MORNING and AT BEDTIME) Start Date: 06/02/24 Status: Ordered Start: 11-25-2023 take 1 tablet by janay twice daily Sacubitril-Valsartan (Entresto) 24-26 mg Tablet Active 1 TAB PO Twice daily 180 November 25, 2023 12:00am Semaglutide (1 source) Start: 11-21-2023 Semaglutide (Ozempic) 0.25 mg or 0.5 mg (2 mg/3 mL) pen injector Active 0.5 MG SUBCUT .weekly November 21, 2023 12:00am spironolactone 25 mg oral tablet (3 sources) Aldosterone Antagonist Start: 06-02-2024 take 0.5 tablet by mouth once daily, then take 0.5 tablet by mouth in the morning spironolactone 25 mg Tab 1/2 tab, Oral, Daily, TAKE 1/2 (ONE-HALF) OF A TABLET BY MOUTH IN THE MORNING Start Date: 06/02/24 Status: Ordered Start: 11-25-2023 take 25 mg by mouth once daily Spironolactone Active 25 MG PO Daily 90 November 25, 2023 12:00am Completed/Discontinued Medications Medication Drug Class(es) Dates Sig (Normalized) Sig (Original) amoxicillin 875 mg / clavulanate 125 mg oral tablet (1 source) Penicillin-class Antibacterial Start: 11-21-2023 End: 11-25-2023 take 1 tablet by mouth every twelve hours Amoxicillin-Pot Clavulanate Discontinued 1 TAB PO Every 12 hours November 21, 2023 12:00am November 25, 2023 12:43pm apixaban 5 mg oral tablet (3 sources) Factor Xa Inhibitor Start: 06-02-2024 take 1 tablet by mouth twice daily Eliquis 5 mg oral tablet 5 mg = 1 tab(s), Oral, BID, TAKE 1 TABLET BY MOUTH TWICE DAILY Start Date: 06/02/24 Status: Ordered Start: 11-25-2023 take 1 tablet by janay th twice daily Apixaban (Eliquis) 5 mg Tablet Active 5 MG PO Twice daily November 25, 2023 12:00am atorvastatin 40 mg oral tablet (4 sources) HMG-CoA Reductase Inhibitor Start: 06-02-2024 take 1 tablet by mouth once daily at bedtime atorvastatin 40 mg Tab 40 mg = 1 tab(s), Oral, Daily, TAKE 1 TABLET BY MOUTH AT BEDTIME Start Date: 06/02/24 Status: Ordered Start: 11-25-2023 take 1 tablet by janay th once daily at bedtime Atorvastatin (Lipitor) 40 mg tablet Active 40 MG PO Daily at bedtime November 25, 2023 12:00am Start: 11-21-2023 End: 11-25-2023 take 20 mg by mouth once daily Atorvastatin Discontinu ed 20 MG PO Daily November 21, 2023 12:00am November 25, 2023 12:43pm empagliflozin 10 mg oral tablet (3 sources) Sodium-Glucose Cotransporter 2 Inhibitor Start: 06-02-2024 take 1 tablet by mouth once daily in the morning Jardiance 10 mg oral tablet 10 mg = 1 tab(s), Oral, qAM, take 1 tablet by mouth once daily Start Date: 06/02/24 Status: Ordered Start: 11-25-2023 take 1 tablet by janay th once daily Empagliflozin (Jardiance) 10 mg Tablet Active 10 MG PO Daily November 25, 2023 12:00am ezetimibe 10 mg oral tablet (3 sources) Dietary Cholesterol Absorption Inhibitor Start: 06-02-2024 take 1 tablet by mouth once daily ezetimibe 10 mg Tab 10 mg = 1 tab(s), Oral, Daily, TAKE 1 TABLET BY MOUTH DAILY Start Date: 06/02/24 Status: Ordered Start: 11-21-2023 End: 11-25-2023 take 10 mg [...] 21, 2023 12:00am November 25, 2023 12:46pm pantoprazole 40 mg delayed release oral tablet (3 sources) Proton Pump Inhibitor Start: 06-02-2024 take 1 tablet by mouth once daily Pantoprazole [address] Tab 40 mg = 1 tab(s), Oral, Daily, TAKE 1 TABLET BY MOUTH DAILY Start Date: 06/02/24 Status: Ordered Start: 11-21-2023 take 40 mg by mouth once daily Pantoprazole Active 40 MG PO Daily November 21, 2023 12:00am tiZANidine 4 mg oral tablet (2 sources) Central alpha-2 Adrenergic Agonist Start: 06-02-2024 take 2 tablets by mouth at bedtime tiZANidine 4 mg Tab 8 mg = 2 tab(s), Oral, Bedtime, TAKE 2 TABLETS BY MOUTH AT BEDTIME Start Date: 06/02/24 Status: Ordered Problems Active Problems Problem Classification Problem Date Documented Da te Episodic/Chronic Acute myocardial infarction (7 sources) Myocardial infarction; Translations: [Non-ST elevation (NSTEMI) myocardial infarction] Onset: 4 11-21-2023 Chronic Anxiety disorders (1 source) Anxiety disorder, unspecified; Translations: [ANXIETY DISORDER UNSPECIFIED] Onset: 2 Chronic Calculus of urinary tract (6 sources) Personal history of urinary calculi; Translations: [Kidney stone] Onset: 2 Episodic Cardiac dysrhythmias (7 sources) Atrial fibrillation; Translations: [Unspecified atrial fibrillation] Onset: 4 11-21-2023 Chronic Congestive heart failure; nonhypertensive (9 sources) Heart failure with reduced ejection fraction; Translations: [Unspecified systolic (congestive) heart failure] Onset: 4 11-21-2023 Chronic Coronary atherosclerosis and other heart disease (11 sources) Atherosclerotic heart disease of [place] coronary artery without angina pectoris; Translations: [Coronary arteriosclerosis] Onset: 7 11-21-2023 Chronic Crushing injury or internal injury (2 sources) Injury of heart; Translations: [Myocardial injury] 11-21-2023 Episodic Diabetes mellitus without complication (7 sources) Type 2 diabetes mellitus without complications; Translations: [Diabetes mellitus] Onset: 7 11-21-2023 Chronic Diseases of white blood cells (2 sources) Leukocytosis 06-02-2024 Chronic Disorders of lipid metabolism (3 sources) Hyperlipidemia, unspecified; Translations: [Hypercholesterolemia] Onset: 7 06-02-2024 Chronic Esophageal disorders (2 sources) Gastroesophageal reflux disease 06-02-2024 Chronic Essential hypertension (11 sources) Essential (primary) hypertension; Translations: [Hypertensive disorder] Onset: 7 11-21-2023 Chronic Genitourinary symptoms and ill-defined conditions (3 sources) Blood in urine; Translations: [Gross hematuria] Onset: Episodic Headache; including migraine (2 sources) Headache; Translations: [Headache] 11-21-2023 Episodic Headache; including migraine (1 source) Headache; including migraine; Translations: [Headache, unspecified] Onset: 4 Heart valve disorders (2 sources) Nonrheumatic mitral (valve) insufficiency; Translations: [Nonrheumatic mitral (valve) insufficiency] Onset: 4 Chronic Influenza (3 sources) Influenza due to Influenza A virus; Translations: [Influenza due to other identified influenza virus with other respiratory manifestations] Onset: 4 11-21-2023 Episodic Nonspecific chest pain (7 sources) Chest pain, unspecified; Translations: [Chest pain] Onset: 7 11-21-2023 Episodic Osteoarthritis (1 source) Unspecified osteoarthritis, unspecified site; Translations: [UNSPECIFIED OSTEOARTHRITIS UNS SITE] Onset: 2 Chronic Other aftercare (1 source) Long-term current use of anticoagulant; Translations: [technician terminal and repeater (current) use of anticoagulants] Onset: 4 Episodic Other and ill-defined heart disease (2 sources) Heart disease Onset: 4 06-02-2024 Chronic Other diseases of bladder and urethra (1 source) Detrusor overactivity; Translations: [Overactive bladder] Onset: 4 Chronic Other diseases of bladder and urethra (2 sources) Overactive bladder 06-02-2024 Chronic Other endocrine disorders (1 source) Disorder of adrenal gland; Translations: [Other specified disorders of adrenal gland] Onset: 4 Chronic Other gastrointestinal disorders (2 sources) Adrenal mass 06-02-2024 Episodic Other lower respiratory disease (1 source) Dyspnea; Translations: [Shortness of breath] 11-21-2023 Episodic Other lower respiratory disease (2 sources) Shortness of breath; Translations: [Shortness of breath] Onset: 4 11-25-2023 Episodic Other nutritional; endocrine; and metabolic disorders (1 source) Morbid (severe) obesity due to excess calories; Translations: [MORBID SEVERE OBES D/T EXCESS JOSÉ LUIS] Onset: 2 Chronic Other nutritional; endocrine; and metabolic disorders (1 source) Body mass index (BMI) 40.0-44.9, adult; Translations: [BODY MASS INDEX BMI 40.0-44.9 ADULT] Onset: 2 Chronic Respiratory failure; insufficiency; arrest (adult) (3 sources) Acute respiratory failure; Translations: [Acute respiratory failure with hypoxia] Onset: 4 11-21-2023 Episodic Screening or history of mental health and substance abuse (4 sources) Personal history of nicotine dependence; Translations: [H/O: Disorder] Onset: 7 Episodic Substance-related disorders (1 source) Nicotine dependence, cigarettes, uncomplicated; Translations: [NICOTINE DEPEND CIGARETTES UNCOMP] Onset: 2 Chronic Unclassified (1 source) snf (current) use of oral hypoglycemic drugs; Translations: [CLINICAL INFORMATICS DIRECTOR (CURRENT) USE OF ORAL HYPOGLYCEMIC DRUGS] Onset: 7 Unclassified (2 sources) Unknown / UNK(Unknown) Onset: 7 Unclassified (2 sources) CONTACT W/AND (SUSP) EXPOS COVID-19; Translations: [CONTACT W/AND (SUSP) EXPOS COVID-19] Onset: 2 Unclassified (1 source) COUGH, UNSPECIFIED; Translations: [COUGH, UNSPECIFIED] Onset: 2 Unclassified (1 source) Non-ischemic myocardial injury (non-traumatic); Translations: [Non-ischemic myocardial injury (non-traumatic)] Onset: 4 Unclassified (2 sources) Other persistent atrial fibrillation; Translations: [Other persistent atrial fibrillation] Onset: 4 Unclassified (2 sources) Drug therapy finding 06-02-2024 Viral infection (1 source) COVID-19; Translations: [COVID-19] Onset: 2 Past or Other Problems Problem Classification Problem Date Documented Da te Episodic/Chronic Coronary atherosclerosis and other heart disease (6 sources) Presence of aortocoronary bypass graft; Translations: [Aortocoronary bypass status] Onset: 7 11-25-2023 Episodic E Codes: Fall (1 source) Unspecified fall, initial encounter; Translations: [UNSPECIFIED FALL INITIAL ENCOUNTER] Onset: 2 Episodic Gastrointestinal hemorrhage (2 sources) Gastrointestinal hemorrhage Onset: 4 06-02-2024 Episodic Other aftercare (3 sources) technician terminal and repeater (current) use of aspirin; Translations: [technician terminal and repeater (current) use of antithrombotics/antipl atelets] Onset: 7 Episodic Other aftercare (1 source) Other long term care phlebotomist (current) drug therapy; Translations: [OTH CLINICAL INFORMATICS DIRECTOR CURRENT DRUG THERAPY] Onset: 2 Episodic Other connective tissue disease (1 source) Arthrodesis status; Translations: [ARTHRODESIS STATUS] Onset: 2 Episodic Other injuries and conditions due to external causes (1 source) Other specified injuries of head, initial encounter; Translations: [OTH SPEC INJURIES HEAD INITIAL ENC] Onset: 2 Episodic Other upper respiratory disease (1 source) Nasal congestion; Translations: [NASAL CONGESTION] Onset: 2 Episodic Residual codes; unclassified (1 source) Acquired absence of both cervix and uterus; Translations: [ACQUIRED ABSENCE BOTH CERVIX AND UTERUS] Onset: 2 Episodic Superficial injury; contusion (1 source) Contusion of other part of head, initial encounter; Translations: [CONTUS OTH PRT HEAD INITIAL ENCNTR] Onset: 2 Episodic Syncope (5 sources) Syncope and collapse; Translations: [SYNCOPE AND COLLAPSE] Onset: 7 Episodic Unclassified (1 source) CONTACT W/AND (SUSP) EXPOS COVID-19; Translations: [CONTACT W/AND (SUSP) EXPOS COVID-19] Onset: 2 Results Test Name Value Interpretation Reference Range Facility Urine Cytology ([facility])on 0 06-05-2024 Microscopic exam Cytology (U) [Interp] Diagnosis Info Invalid Interpretation Code [facility] Comment on above: Result Comment: A:Ur ine,Clean Catch:Voided Interpretation - Adequate cellularity for evaluation. MicroScopic Description - Adequacy - Adequate Gross Description Site ID:A color Yellow fixative Alcohol Specimen designated Clean Catch received in alcohol preservative and labeled with the patient???s name, consists of 40ml cloudy yellow fluid. Electronically signed by : on: 06/05/2024 15:04:11 Performed By: #### 1 [id number] #### [facility] [address] [place] [address] Ambulatory Visit Summaryon 0 06-02-2024 Ambulatory Visit Summary Ambulatory Visit Summary MELISSA DUBOSE :1960 Visit Date:06/02/2024 Ambulatory Visit Instructions Your Diagnosis Gross hematuria Adrenal mass OAB (overactive bladder) Kidney stones Former smoker Anticoagulated Your Care Team Attending Physician - HILTON Tariq APRN, Ashley Sorenson Primary Care Physician - Madison Mccormack MD This Is Your Medications List Contact prescribing physician if questions or concerns amiodarone (amiodarone 200 mg Tab) apixaban (Eliquis 5 mg oral tablet) aspirin (aspirin 81 mg Oral EC Tab) atorvastatin (atorvastatin 40 mg Tab) empagliflozin (Jardiance 10 mg oral tablet) ezetimibe (ezetimibe 10 mg Tab) lidocaine topical (lidocaine Top 5% film Patch) metoprolol (metoprolol succinate 50 mg ER Tab) pantoprazole (Pantoprazole [address] Tab) sacubitril-valsartan (Entresto 97 mg-103 mg oral tablet) spironolactone (spironolactone 25 mg Tab) tizanidine (tiZANidine 4 mg Tab) Procedures Performed Cardioversion (01/2024), Cardiac catheter, Cholecystectomy, Colonoscopy, History of coronary artery bypass grafting.., Hysterectomy, Spine. Discharge Vitals Heart Rate (Peripheral) 56 Respiratory Rate 16 Blood Pressure 126/78 Height 178 cm Height 70 in Weight 105 kg Weight 231 lb BMI 33.14 What to do next You Need to Schedule the Following Appointments Follow Up with SHANNAN HO, AJ Jean When: Comments: cysto Where: [address] [place] [phone]- Medications What How Much When Instructions Unchanged amiodarone (amiodarone 200 mg Tab) 1 Tablets By Mouth Every day Contact prescribing physician if questions or concerns Unchanged apixaban (Eliquis 5 mg oral tablet) 1 Tablets By Mouth 2 times a day TAKE 1 TABLET BY MOUTH TWICE DAILY Contact prescribing physician if questions or concerns Unchanged aspirin (aspirin 81 mg Oral EC Tab) 1 Tablets By Mouth Every day Contact prescribing physician if questions or concerns Unchanged atorvastatin (atorvastatin 40 mg Tab) 1 Tablets By Mouth Every day TAKE 1 TABLET BY MOUTH AT BEDTIME Contact prescribing physician if questions or concerns Unchanged empagliflozin (Jardiance 10 mg oral tablet) 1 Tablets By Mouth Once a day (in the morning) take 1 tablet by mouth once daily Contact prescribing physician if questions or concerns Unchanged ezetimibe (ezetimibe 10 mg Tab) 1 Tablets By Mouth Every day TAKE 1 TABLET BY MOUTH DAILY Contact prescribing physician if questions or concerns Unchanged lidocaine topical (lidocaine Top 5% film Patch) 1 Patches Topical Every day apply 1 patch TO THE AFFECTED AREA(S) DAILY leave on for 12 hours and off for 12 hours Contact prescribing physician if questions or concerns Unchanged metoprolol (metoprolol succinate 50 mg ER Tab) 1 Tablets By Mouth Every day Contact prescribing physician if questions or concerns Unchanged pantoprazole (Pantoprazole [address] Tab) 1 Tablets By Mouth Every day TAKE 1 TABLET BY MOUTH DAILY Contact prescribing physician if questions or concerns Unchanged sacubitril-valsartan (Entresto 97 mg-103 mg oral tablet) 1 Tablets By Mouth 2 times a day TAKE 1 TABLET BY MOUTH TWICE DAILY (IN THE MORNING and AT BEDTIME) Contact prescribing physician if questions or concerns Unchanged spironolactone (spironolactone 25 mg Tab) 1/2 tab By Mouth Every day TAKE 1/ 2 (ONE-HALF) OF A TABLET BY MOUTH IN THE MORNING Contact prescribing physician if questions or concerns Unchanged tizanidine (tiZANidine 4 mg Tab) 2 Tablets By Mouth At bedtime TAKE 2 TABLETS BY MOUTH AT BEDTIME Contact prescribing physician if questions or concerns Allergies No Known Allergies Problems Ongoing - Any problem that you are currently receiving treatment for. Adrenal mass Anticoagulated Atrial fibrillation Coronary arteriosclerosis Essential hypertension Former smoker Gastroesophageal reflux disease Gastrointestinal hemorrhage Gross hematuria Heart attack Heart disease Heart failure with reduced ejection fraction. High cholesterol Hypertension Kidney stones Leukocytosis Myocardial infarction OAB (overactive bladder) Personal history of urinary calculi Type 2 diabetes mellitus without complication Patient Survey You may receive a survey via text or e-mail asking about your office visit. Please share your experience with us by completing your survey. We appreciate your feedback and thank you for choosing us for your care. Education Materials Hematuria, Adult Hematuria is blood in the urine. Blood may be visible in the urine, or it may be identified with a test. This condition can be caused by infections of the bladder, urethra, kidney, or prostate. Other possible causes include: ? Kidney stones. ? Cancer of the urinary tract. ? Too much calcium in the urine. ? Conditions that are passed from parent to child (inherited conditions). ? Exercise that req (more content not included)... Normal [facility] Urine Cytology ([facility])on 06-02-2024 Method of Extraction Voided Normal [facility] Comment on above: Performed By: #### 1 [id number] #### [facility] [address] Number of Jars 1 Invalid Interpretation Code [facility] Comment on above: Performed By: #### 1 [id number] #### [facility] [address] [place] [id number] Specimen Clean Catch Normal [facility] Comment on above: Performed By: #### 1 [id number] #### [facility] [address] [place] [address] Type of Service Technical Only Normal Fi [facility] Comment on above: Performed By: #### 1 [id number] #### [facility] [address] [place] [address] Urology Office/Clinic Noteon 06-02-2024 Urology Office/Clinic Note Urology Office/Clinic Note Chief Complaint New patient microhematuria HPI Staff 63 yr old female here with referral from Dr Mccormack for gross hematuria. Had gross hematuria a couple months ago and hasn't since then. Has been having microscopic blood since last spriing. AURELIO do 12/20/23. CT abdomen pelvis w con 11/26/23. 01/10/24: Creatinine- 1.04, BUN-13.0, eGFR- 54. Urine cx 12/24/23: PROMIR Isolated ,10,000.UA from 03/30/24, had small blood a1c- 4.7 from 11/21/23 Dysuria: denies Incomplete bladder emptying: denies Hematuria: denies visible blood Frequency: once an hour Urgency: yes Nocturia: 5-6 x a night Stream: denies hesitancy, has a strong stream Leaking: sometimes Post void dripping: sometimes Wearing pads/ Depends: denies Urge incontinence: sometimes Stress incontinence: sometimes Incontinence without Sensory Awareness: denies Abdominal pain: denies Flank pain: off and on bilateral lower back pain and flank pain Sexual complaints: _ History of Present Illness I have reviewed and verified the staff HPI to be accurate for this encounter. Portions of this record may have been created with voice recognition artificial intelligence software, specifically [employer], [employer] and or [employer]. Substitutions may have occurred due to the inherent limitations of voice recognition and artificial intelligence software. Review of Systems PHQ Score Initial Depression Screen Score: 0 SCORE Physical Exam Vitals & Measurements HR: 56(Peripheral) RR: 16 BP: 126/78 HT: 70 in HT: 178 cm WT: 105 kg WT: 231 lb BMI: 33.14 General: Well developed, well nourished, in no acute distress. Genitourinary: Flank Pain: none. Bladder: nonpalpable. Assessment/Plan 1. Gross hematuria (R31.0: Gross hematuria) Patient reports episode of gross hematuria sometime last spring, then additional episode of gross hematuria several months ago. Notes that she did not have any pain or changes in her urinary symptoms at that time. She denies any passing of stones. Notes that hematuria lasted several days. PCP has been noting microscopic hematuria in her urine for about a year. Patient was previous smoker, 1 pack/day, unsure when she quit. Ultrasound renal/bladder 12/24/2023 - 3 mm echogenic foci in the midpole of the right kidney likely nonobstructing nephrolith. Multiple echogenic foci on the left measuring 6 mm, possibly nonobstructing nephrolithiasis. No bladder abnormality, ureteral jets not visualized. CT AP with con 11/26/2023 - 1.7 cm left adrenal nodule. Nonobstructive left intrarenal calculi. CTAP without con 12/02/2023 - 2 cm left adrenal nodule, nonobstructing left stones. No bladder abnormality. Discussed potential etiologies and implications of hematuria with patient. These include: trauma (recent catheterization, etc), Tumor (renal, urothelial, prostatic, urethral, etc), infection/inflammation (UTI, cystitis, recent catheterization, interstitial cystitis, radiation), stones, period/menses (pseudohematuria), obstructive uropathy (urolithiasis, stricture, etc), nephritis (glomeurlonephritis, Alport's syndrome, Valente's IgA nephropathy, interstitial nephritis, etc), Tuberculosis, thrombosis (renal vein thrombosis, renal infarct, pseudoaneurysm, etc) and hematologic (bleeding disorders, anticoagulation, sickle cells disease, etc) We discussed additional workup needed including additional urine studies, cystoscopy. The risks and benefits for cystoscopy have been discussed. The risks include bleeding, infection, and irritation of the bladder and urinary channel, among others. The patient, after being informed of procedural details and after questions have been answered, wishes to proceed. Will order Local anesthesia. Patient does note that she is worried about the financial aspect of this workup. -Send urine for cytology today -Schedule cystoscopy 2. Adrenal mass (E27.8: Other specified disorders of adrenal gland) CT AP with con 11/26/2023 - 1.7 cm left adrenal nodule. CTAP without con 12/02/2023 - 2 cm left adrenal nodule. Discussed adrenal nodule findings. Will call [facility] radiology for Hounsfield measurements between the contrast and noncontrast images. May need additional lab work versus further workup. Patient will likely need separate discussion regarding this, she was very overwhelmed with hematuria discussion today. -Request for addendum on [facility] CTs 3. OAB (overactive bladder) (N32.81: Overactive bladder) BBS 27 Patient reports that she has had worsening urinary symptoms over the last several months. Feels that she is going multiple times an hour, does not sleep at night due to her frequency, urgency. We discussed OAB and possible treatment with medication. However, patient is uninterested at this time. -Continue to monitor 4. Kidney stones (N20.0: Calculus of kidney) Ultrasound renal/bladder 12/24/2023 - 3 mm echogenic foci in the midpole of the right kidney likely nonobstructing nephrol (more content not included)... Normal [facility] Comment on above: Result Comment: Elec tronically Signed By: HILTON Tariq APRN, Ashley Sorenson\.br\Date and Time Signed: 06/02/24 14:44 EDT Office Visiton 05-01-2024 Follow-up visit [id number] Chung Dubose 1960 F Date Provider Department Center 05/01/2024 JUSTINE NOLAN DEMETRIS Parra Family History Problem Relation Age of Onset Diabetes Mother Atrial fibrillation Mother Hyperlipidemia Mother Kidney disease Sister Heart attack Maternal Grandmother Stroke Maternal Grandmother Family Status - Relation Status Age at Mother Sister Maternal Grandmother Level of Service:14575 DC OFFICE/OUTPATIENT ESTABLISHED MOD MDM 30 MIN Normal [facility] Office Visiton 02-19-2024 Follow-up visit [id number] Chung Dubose 1960 F Date Provider Department Center 02/19/2024 [id number] WHITE DEMETRIS Parra Family History Problem Relation Age of Onset Diabetes Mother Atrial fibrillation Mother Hyperlipidemia Mother Kidney disease Sister Heart attack Maternal Grandmother Stroke Maternal Grandmother Family Status - Relation Status Age at Mother Sister Maternal Grandmother Level of Service:09018 DC OFFICE/OUTPATIENT ESTABLISHED MOD MDM 30 MIN Normal [facility] ANESon 01-17-2024 ANES -------- Attestation signed [...] Procedure Information Date/Time: 01/17/24904 Procedure: Cardioversion/defibrillation Location: [facility] [employer]NA[employer] HOLDING ROOM / [facility] (Cath) Providers: Justine Grimes MD Clinical information reviewed: Allergies Meds OB Status Physical Exam Airway Mallampati: III TM distance: >3 FB Neck ROM: full Cardiovascular Rhythm: regular Rate: normal Dental Pulmonary Abdominal Anesthesia Plan ASA 3 Anesthetic plan and risks discussed with patient. Use of blood products discussed with patient who. Plan discussed with attending. Additional Equipment Requests Normal [facility] HPon 01-17-2024 HP -------- Attestation signed by Ria Schneider MD [...] were addressed and answered. Jocelin Barajas MD Wood Molder - PGY5 [facility] NURSNOTEon 01-17-2024 NURSNOTE RN educated pt on d/ c instructions. RN encouraged pt to voice any questions or concerns. Pt verbalizes no questions or concerns at this time. [facility] NURSNOTE Patient passed swall ow test. No issues. [facility] HPon 12-27-2023 [facility] Cardiology - [facility] Fili Dubose is a 63 y.o. year old [...] Alcohol use: Not Currently Drug use: Never PCAO Torres is seen in follow up. She is [...] ventricular response. She underwent cardiac catheterization at [facility] which showed patent bypass grafts. She was [...] wave abn (more content not included)... Normal [facility] Office Visiton 12-27-2023 Follow-up visit [id number] Chung Dubose 1960 F Date Provider Department Center 12/27/2023 JUSTINE NOLAN DEMETRIS Parra Family History Problem Relation Age of Onset Diabetes Mother Atrial fibrillation Mother Hyperlipidemia Mother Kidney disease Sister Heart attack Maternal Grandmother Stroke Maternal Grandmother Family Status - Relation Status Age at Mother Sister Maternal Grandmother Level of Service:94421 DC OFFICE/OUTPATIENT ESTABLISHED HIGH MDM 40 MIN Reason for Visit and Comments: Follow-up [902433] - Follow up per Al Soler [facility] Office Visiton 12-11-2023 Follow-up visit [id number] Chung Dubose 1960 Date Provider Department Center 12/11/2023 TREVIN COTTO DEMETRIS Milly Aida Family History Problem Relation Age of Onset Diabetes Mother Atrial fibrillation Mother Hyperlipidemia Mother Kidney disease Sister Heart attack Maternal Grandmother Stroke Maternal Grandmother Family Status - Relation Status Age at Mother Sister Maternal Grandmother Level of Service:81973 DC OFFICE/OUTPATIENT ESTABLISHED HIGH MDM 40 MIN Reason for Visit and Comments: Hospital Follow-up [832] Congestive Heart Failure [127] Coronary Artery Disease [187] Atrial Fibrillation [80] Normal [facility] Glucose Poct Glucometerson 0 11-25-2023 Glucose [Mass/Vol] 255 mg/dL Normal [facility] Comment on above: Result Comment: [facility] Glucose Reference Range is dependent on time and content of last meal. Glucose of more than 200 mg/dL in a nonstressed, ambulatory subject supports the diagnosis of Diabetes Mellitus. PERFORMED BY: [place] [address] PATHOLOGIST INVESTMENT REPRESENTATIVE SUNNI CH M.D. Performed By: #### P T, PTT #### [facility] [address] [place], [place] [id number] [facility] Basic Metabolic Panelon 03- Anion gap [Moles/Vol] 10.9 mmol/L Normal 6.0-15.0 [facility] Comment on above: Performed By: #### P T, PTT #### [place] [id number] [facility] Calcium [Mass/Vol] 9.0 mg/dL Normal 8.6-10.3 [facility] Comment on above: Performed By: #### P T, PTT #### [address] Chloride [Moles/Vol] 100 mmol/L Normal 98-107 [facility] Comment on above: Performed By: #### P T, PTT #### [address] CO2 [Moles/Vol] 30.8 mmol/L Normal 21.0-31.0 [facility] Comment on above: Performed By: #### P T, PTT #### [address] Creatinine [Mass/Vol] 0.91 mg/dL Normal 0.60-1.20 [facility] Comment on above: Performed By: #### P T, PTT #### [place] [address] [place] Creatinine Clr Calc Pharmacy 85.70 Normal [facility] Comment on above: Result Comment: PERF ORMED BY: [place] [address] PATHOLOGIST INVESTMENT REPRESENTATIVE SUNNI CH M.D. Performed By: #### P T, PTT #### [address] GFR/1.73 sq M.predicted MDRD (S/P/Bld) [Vol rate/Area] mL/min/{1.73_m2} Normal [facility] Comment on above: Performed By: #### P T, PTT #### [address] Glucose [Mass/Vol] 259 mg/dL Significant change up 70-100 [facility] Comment on above: Result Comment: [facility] Glucose Reference Range is dependent on time and content of last meal. Glucose of more than 200 mg/dL in a nonstressed, ambulatory subject supports the diagnosis of Diabetes Mellitus. ADA recommended reference range Performed By: #### P T, PTT #### [facility] [address] [place] [address] [place] Potassium [Moles/Vol] 3.7 mmol/L Normal 3.5-5.1 [facility] Comment on above: Performed By: #### P T, PTT #### [facility] [address] Sodium [Moles/Vol] 138 mmol/L Normal 136-145 [facility] Comment on above: Performed By: #### P T, PTT #### [facility] [address] [place] [address] [place] Urea nitrogen [Mass/Vol] 23 mg/dL Normal 7-25 [facility] Comment on above: Performed By: #### P T, PTT #### [facility] [address] Calcium [Mass/volume] in Ser um or PlasmaOrdered By: Winter Norris on 11-24-2023 Calcium [Mass/Vol] 9.0 mg/dL 8.6-10.3 [facility] Carbon dioxide, total [Moles /volume] in Serum or PlasmaOrdered By: Winter Norris on 11-24-2023 CO2 [Moles/Vol] 30.8 mmol/L 21.0-31.0 [facility] Chloride [Moles/volume] in S mehreen or PlasmaOrdered By: Winter Norris on 11-24-2023 Chloride [Moles/Vol] 100 mmol/L 98-107 [facility] Creatinine [Mass/volume] in Serum or PlasmaOrdered By: Winter Norris on 11-24-2023 Creatinine [Mass/Vol] 0.91 mg/dL 0.60-1.20 [facility] Glucose Glucometer (BldC) [M ass/Vol]Ordered By: Winter Norris on 11-24-2023 Glucose [Mass/Vol] 271 mg/dL [facility] Comment on above: Random Glucose Refer ence Range is dependent on time and content of last meal. Glucose of more than 200 mg/dL in a nonstressed, ambulatory subject supports the diagnosis of Diabetes Mellitus. Glucose Poct Glucometerson 0 11-24-2023 Glucose [Mass/Vol] 271 mg/dL Normal [facility] Comment on above: Result Comment: [facility] om Glucose Reference Range is dependent on time and content of last meal. Glucose of more than 200 mg/dL in a nonstressed, ambulatory subject supports the diagnosis of Diabetes Mellitus. PERFORMED BY: [place] [id number] PATHOLOGIST INVESTMENT REPRESENTATIVE SUNNI CH M.D. Performed By: #### G LULS #### Point of Care testing , Glucose [Mass/Vol] 337 mg/dL Normal [facility] Comment on above: Result Comment: [facility] Glucose Reference Range is dependent on time and content of last meal. Glucose of more than 200 mg/dL in a nonstressed, ambulatory subject supports the diagnosis of Diabetes Mellitus. PERFORMED BY: [place] [id number] PATHOLOGIST INVESTMENT REPRESENTATIVE SUNNI CH M.D. Performed By: #### P T, PTT #### [address] Glucose [Mass/Vol] 238 mg/dL Normal [facility] Comment on above: Result Comment: [facility] om Glucose Reference Range is dependent on time and content of last meal. Glucose of more than 200 mg/dL in a nonstressed, ambulatory subject supports the diagnosis of Diabetes Mellitus. PERFORMED BY: [place] [id number] PATHOLOGIST INVESTMENT REPRESENTATIVE SUNNI CH M.D. Performed By: #### P T, PTT #### [address] Glucose [Mass/Vol] 173 mg/dL Normal [facility] Comment on above: Result Comment: [facility] om Glucose Reference Range is dependent on time and content of last meal. Glucose of more than 200 mg/dL in a nonstressed, ambulatory subject supports the diagnosis of Diabetes Mellitus. PERFORMED BY: [address] [address] PATHOLOGIST INVESTMENT REPRESENTATIVE SUNNI CH M.D. Performed By: #### P T, PTT #### [facility] [address] [place] [address] [place] Glucose [Mass/volume] in Ser um or PlasmaOrdered By: Winter Norris on 11-24-2023 Glucose [Mass/Vol] 259 mg/dL 70-100 [facility] Comment on above: Delta: 133 on -[id number] recommended reference rangeRandom Glucose Reference Range is dependent on time and content of last meal. Glucose of more than 200 mg/dL in a nonstressed, ambulatory subject supports the diagnosis of Diabetes Mellitus. No Panel InformationOrdered By: Winter Norris on 11-24-2023 Estimated GFR (CKD-EPI) > 60.0 mL/Min [facility] Creatinine Clearance (Chem 85.70 [facility] Potassium [Moles/volume] in Serum or PlasmaOrdered By: Winter Norris on 11-24-2023 Potassium [Moles/Vol] 3.7 mmol/L 3.5-5.1 [facility] Serum or plasma anion gap de terminationOrdered By: Winter Norris on 11-24-2023 Anion gap [Moles/Vol] 10.9 mmol/L 6.0-15.0 [facility] Sodium [Moles/volume] in Ser um or PlasmaOrdered By: Winter Norris on 11-24-2023 Sodium [Moles/Vol] 138 mmol/L 136-145 [facility] Urea nitrogen [Mass/volume] in Serum or PlasmaOrdered By: Winter Norris on 11-24-2023 Urea nitrogen [Mass/Vol] 23 mg/dL 7-25 [facility] Basic Metabolic Panelon 11-07 Anion gap [Moles/Vol] 11.8 mmol/L Normal 6.0-15.0 [facility] Comment on above: Performed By: #### B MP, CBC #### [facility] [address] [place] [id number] [facility] Calcium [Mass/Vol] 9.2 mg/dL Normal 8.6-10.3 [facility] Comment on above: Performed By: #### B MP, CBC #### [address] Chloride [Moles/Vol] 103 mmol/L Normal 98-107 [facility] Comment on above: Performed By: #### B MP, CBC #### [address] CO2 [Moles/Vol] 29.1 mmol/L Normal 21.0-31.0 [facility] Comment on above: Performed By: #### B MP, CBC #### [address] Creatinine [Mass/Vol] 0.94 mg/dL Normal 0.60-1.20 [facility] Comment on above: Performed By: #### B MP, CBC #### [address] Creatinine Clr Calc Pharmacy 82.97 Normal [facility] Comment on above: Result Comment: PERF ORMED BY: [place] [address] PATHOLOGIST INVESTMENT REPRESENTATIVE SUNNI CH M.D. Performed By: #### B MP, CBC #### [address] GFR/1.73 sq M.predicted MDRD (S/P/Bld) [Vol rate/Area] mL/min/{1.73_m2} Normal [facility] Comment on above: Performed By: #### B MP, CBC #### [address] Glucose [Mass/Vol] 133 mg/dL High 70-100 [facility] Comment on above: Result Comment: [facility] Glucose Reference Range is dependent on time and content of last meal. Glucose of more than 200 mg/dL in a nonstressed, ambulatory subject supports the diagnosis of Diabetes Mellitus. ADA recommended reference range Performed By: #### B MP, CBC #### [address] Potassium [Moles/Vol] 3.9 mmol/L Normal 3.5-5.1 [facility] Comment on above: Performed By: #### B MP, CBC #### [address] Sodium [Moles/Vol] 140 mmol/L Normal 136-145 [facility] Comment on above: Performed By: #### B MP, CBC #### [address] Urea nitrogen [Mass/Vol] 23 mg/dL Normal 7-25 [facility] Comment on above: Performed By: #### B MP, CBC #### [address] Basophils Auto (Bld) [#/Vol] Ordered By: Winter Norris on 11-23-2023 Basophils (Bld) [#/Vol] 0.0 10*3/uL 0.0-0.2 [facility] Basophils/100 WBC Auto (Bld) Ordered By: Winter Norris on 11-23-2023 Basophils/100 WBC (Bld) 0.1 % . [facility] Complete Blood Count Auto Di ffon 11-23-2023 Basophils (Bld) [#/Vol] 0.0 10*3/uL Normal 0.0-0.2 [facility] Comment on above: Result Comment: PERF ORMED BY: [place] [address] PATHOLOGIST INVESTMENT REPRESENTATIVE SUNNI CH M.D. Performed By: #### B MP, CBC #### [place] [address] [place] Basophils/100 WBC (Bld) 0.1 % Normal . [facility] Comment on above: Performed By: #### B MP, CBC #### [place] [address] [place] Eosinophils (Bld) [#/Vol] 0.0 10*3/uL Normal 0.0-0.45 [facility] Comment on above: Performed By: #### B MP, CBC #### [place] [address] [place] Eosinophils/100 WBC (Bld) 0.0 % Normal . [facility] Comment on above: Performed By: #### B MP, CBC #### [address] Erythrocyte distribution width (RBC) [Ratio] 15.3 % Normal 11.9-15.3 [facility] Comment on above: Performed By: #### B MP, CBC #### [address] Hematocrit (Bld) [Volume fraction] 40.4 % Normal 34.0-46.4 [facility] Comment on above: Performed By: #### B MP, CBC #### [address] Hemoglobin (Bld) [Mass/Vol] 13.1 g/dL Normal 11.8-15.4 [facility] Comment on above: Performed By: #### B MP, CBC #### [address] Lymphocytes (Bld) [#/Vol] 1.7 10*3/uL Normal 1.00-4.8 [facility] Comment on above: Performed By: #### B MP, CBC #### [place] [address] [place] Lymphocytes/100 WBC (Bld) 17.7 % Normal . [facility] Comment on above: Performed By: #### B MP, CBC #### [address] MCH (RBC) [Entitic mass] 28.2 pg Normal 24.7-34.3 [facility] Comment on above: Performed By: #### B MP, CBC #### [address] MCV (RBC) [Entitic vol] 86.9 fL Normal 80-100 [facility] Comment on above: Performed By: #### B MP, CBC #### [address] Mean Corpuscular HGB Conc 32.4 g/dL Normal 32.0-35.0 [facility] Comment on above: Performed By: #### B MP, CBC #### [facility] [address] [place] [id number] [place] Monocytes (Bld) [#/Vol] 0.9 10*3/uL High 0.0-0.8 [facility] Comment on above: Performed By: #### B MP, CBC #### [place] [address] [place] Monocytes/100 WBC (Bld) 9.5 % Normal . [facility] Comment on above: Performed By: #### B MP, CBC #### [address] Neutrophils (Bld) [#/Vol] 7.0 10*3/uL Normal 1.8-7.7 [facility] Comment on above: Performed By: #### B MP, CBC #### [place] [address] [place] Neutrophils/100 WBC (Bld) 72.7 % Normal . [facility] Comment on above: Performed By: #### B MP, CBC #### [address] NRBC% 0.1 /100{WBC} Normal 0-0.5 [facility] Comment on above: Performed By: #### B MP, CBC #### [address] Platelet mean volume (Bld) [Entitic vol] 8.5 fL Normal 6.3-10.7 [facility] Comment on above: Performed By: #### B MP, CBC #### [place] [address] [place] Platelets (Bld) [#/Vol] 203 10*3/uL Normal 150-450 [facility] Comment on above: Performed By: #### B MP, CBC #### [place] [address] [place] RBC (Bld) [#/Vol] 4.65 10*6/uL Normal 3.60-5.00 [facility] Comment on above: Performed By: #### B MP, CBC #### [facility] [address] WBC (Bld) [#/Vol] 9.6 10*3/uL Normal 3.8-11.6 [facility] Comment on above: Performed By: #### B MP, CBC #### [facility] [address] Eosinophils Auto (Bld) [#/Vo l]Ordered By: Winter Norris on 11-23-2023 Eosinophils (Bld) [#/Vol] 0.0 10*3/uL 0.0-0.45 [facility] Eosinophils/100 WBC Auto (Bl d)Ordered By: Winter Norris on 11-23-2023 Eosinophils/100 WBC (Bld) 0.0 % . [facility] Erythrocyte distribution wid th Auto (RBC) [Ratio]Ordered By: Winter Norris on 11-23-2023 Erythrocyte distribution width (RBC) [Ratio] 15.3 % 11.9-15.3 [facility] Glucose Poct Glucometerson 0 11-23-2023 Glucose [Mass/Vol] 313 mg/dL Normal [facility] Comment on above: Result Comment: [facility] Glucose Reference Range is dependent on time and content of last meal. Glucose of more than 200 mg/dL in a nonstressed, ambulatory subject supports the diagnosis of Diabetes Mellitus. PERFORMED BY: [place] [address] PATHOLOGIST INVESTMENT REPRESENTATIVE SUNNI CH M.D. Performed By: #### P T, PTT #### [address] Commemt1 Glu2: Cleaned Meter Normal [facility] Comment on above: Result Comment: PERF ORMED BY: [place] [address] PATHOLOGIST INVESTMENT REPRESENTATIVE SUNNI CH M.D. Performed By: #### B MP, CBC #### [address] Glucose [Mass/Vol] 307 mg/dL Normal [facility] Comment on above: Result Comment: [facility] Glucose Reference Range is dependent on time and content of last meal. Glucose of more than 200 mg/dL in a nonstressed, ambulatory subject supports the diagnosis of Diabetes Mellitus. Performed By: #### B MP, CBC #### [address] Commemt1 Glu2: Cleaned Meter Normal [facility] Comment on above: Result Comment: PERF ORMED BY: [place] [address] PATHOLOGIST INVESTMENT REPRESENTATIVE SUNNI CH M.D. Performed By: #### P T, PTT #### [address] Glucose [Mass/Vol] 131 mg/dL Normal [facility] Comment on above: Result Comment: [facility] Glucose Reference Range is dependent on time and content of last meal. Glucose of more than 200 mg/dL in a nonstressed, ambulatory subject supports the diagnosis of Diabetes Mellitus. Performed By: #### P T, PTT #### [address] Commemt1 Glu2: Cleaned Meter Normal [facility] Comment on above: Result Comment: PERF ORMED BY: [place] [address] PATHOLOGIST INVESTMENT REPRESENTATIVE SUNNI CH M.D. Performed By: #### P T, PTT #### [place] [address] [place] Glucose [Mass/Vol] 140 mg/dL Normal [facility] Comment on above: Result Comment: [facility] Glucose Reference Range is dependent on time and content of last meal. Glucose of more than 200 mg/dL in a nonstressed, ambulatory subject supports the diagnosis of Diabetes Mellitus. Performed By: #### P T, PTT #### [address] Hematocrit Auto (Bld) [Volum e fraction]Ordered By: Winter Norris on 11-23-2023 Hematocrit (Bld) [Volume fraction] 40.4 % 34.0-46.4 [facility] Hemoglobin [Mass/volume] in BloodOrdered By: Winter Norris on 11-23-2023 Hemoglobin (Bld) [Mass/Vol] 13.1 g/dL 11.8-15.4 [facility] Leukocytes [#/volume] correc nargis for nucleated erythrocytes in Blood by Automated counOrdered By: Winter Norris on 11-23-2023 WBC corrected for nucl RBC Auto (Bld) [#/Vol] 9.6 10*3/uL 3.8-11.6 [facility] Lymphocytes Auto (Bld) [#/Vo l]Ordered By: Winter Norris on 11-23-2023 Lymphocytes (Bld) [#/Vol] 1.7 10*3/uL 1.00-4.8 [facility] Lymphocytes/100 WBC Auto (Bl d)Ordered By: Winter Norris on 11-23-2023 Lymphocytes/100 WBC (Bld) 17.7 % . [facility] MCH Auto (RBC) [Entitic mass ]Ordered By: Winter Norris on 11-23-2023 MCH (RBC) [Entitic mass] 28.2 pg 24.7-34.3 [facility] MCHC Auto (RBC) [Mass/Vol]Or dered By: Winter Norris on 11-23-2023 MCHC (RBC) [Mass/Vol] 32.4 g/dL 32.0-35.0 [facility] MCV Auto (RBC) [Entitic vol] Ordered By: Winter Norris on 11-23-2023 MCV (RBC) [Entitic vol] 86.9 fL 80-100 [facility] Monocytes Auto (Bld) [#/Vol] Ordered By: Winter Norris on 11-23-2023 Monocytes (Bld) [#/Vol] 0.9 10*3/uL 0.0-0.8 [facility] Monocytes/100 WBC Auto (Bld) Ordered By: Winter Norris on 11-23-2023 Monocytes/100 WBC (Bld) 9.5 % . [facility] Neutrophils Auto (Bld) [#/Vo l]Ordered By: Winter Norris on 11-23-2023 Neutrophils (Bld) [#/Vol] 7.0 10*3/uL 1.8-7.7 [facility] Neutrophils/100 WBC Auto (Bl d)Ordered By: Winter Norris on 11-23-2023 Neutrophils/100 WBC (Bld) 72.7 % . [facility] No Panel InformationOrdered By: Winter Norris on 11-23-2023 Bedside Glucose Comment Glu2: cleaned meter [facility] Nucleated erythrocytes [Pres ence] in Blood by Automated countOrdered By: Winter Norris on 11-23-2023 Nucleated RBC Auto Ql (Bld) 0.1 /100{WBC} 0-0.5 [facility] Platelet mean volume Auto (B ld) [Entitic vol]Ordered By: Winter Norris on 11-23-2023 Platelet mean volume (Bld) [Entitic vol] 8.5 fL 6.3-10.7 [facility] Platelets Auto (Bld) [#/Vol] Ordered By: Winter Norris on 11-23-2023 Platelets (Bld) [#/Vol] 203 10*3/uL 150-450 [facility] RBC Auto (Bld) [#/Vol]Ordere d By: Winter Norris on 11-23-2023 RBC (Bld) [#/Vol] 4.65 10*6/uL 3.60-5.00 [facility] WBC Auto (Bld) [#/Vol]Ordere d By: Winter Norris on 11-23-2023 WBC (Bld) [#/Vol] 9.6 10*3/uL 3.8-11.6 [facility] XR chest 1V portableon 11-22 XR chest 1V portable [facility] [place] [address] XRay Report Signed Patient: Melissa Dubose MR#: [id number] 70 : 1960 Acct:[id number] Age/Sex: 63 / F ADM Date: 11/21/23 Loc: Room: [address] [place] [address] Type: ADM IN Attending Dr: Winter Norris [...] Orville Oliver M.D.11/23/2023 10:44 AM Dictation Location: [place] [address] Transcribed By: [facility] 11/23/23 1044 Dictated By: Orville Oliver II, MD 11/23/23 1043 Signed By: 11/23/23 1044 Normal [facility] Activated partial thrombopla stin time (aPTT) in platelet poor plasma by coagulation aOrdered By: Justine Jacobo on 11-22-2023 aPTT Coag (PPP) [Time] 27.6 s 25.1-36.5 [facility] Comment on above: A hematocrit value g reater than 55% may lead to inaccurate results in coagulation testing. Patients having hematocrit values >55% require a special collection tube for coagulation studies. Please contact the laboratory at [phone] for redraw instructions. Blood Urea Nitrogenon 2023 Urea nitrogen [Mass/Vol] 24 mg/dL Normal 7-25 [facility] Comment on above: Performed By: #### P T, PTT #### [address] Coagulation Profileon 2023 aPTT Coag (Bld) [Time] 27.6 s Normal 25.1-36.5 [facility] Comment on above: Result Comment: A he matocrit value greater than 55% may lead to inaccurate results in coagulation testing. Patients having hematocrit values >55% require a special collection tube for coagulation studies. Please contact the laboratory at [phone] for redraw instructions. PERFORMED BY: [place] [address] PATHOLOGIST INVESTMENT REPRESENTATIVE SUNNI CH M.D. Performed By: #### P T, PTT #### [address] INR Coag (PPP) [Relative time] 1.2 {INR} Normal [facility] Comment on above: Result Comment: [...] Performed By: #### P T, PTT #### [address] PT Coag (PPP) [Time] 14.0 s High 9.0-12.9 [facility] Comment on above: Result Comment: A he matocrit value greater than 55% may lead to inaccurate results in coagulation testing. Patients having hematocrit values >55% require a special collection tube for coagulation studies. Please contact the laboratory at [phone] for redraw instructions. Performed By: #### P T, PTT #### [address] Complete Blood Count Auto Di ffon 11-22-2023 Basophils (Bld) [#/Vol] 0.0 10*3/uL Normal 0.0-0.2 [facility] Comment on above: Result Comment: PERF ORMED BY: [place] [address] PATHOLOGIST INVESTMENT REPRESENTATIVE SUNNI CH M.D. Performed By: #### P T, PTT #### [address] Basophils/100 WBC (Bld) 0.1 % Normal . [facility] Comment on above: Performed By: #### P T, PTT #### [address] Eosinophils (Bld) [#/Vol] 0.0 10*3/uL Normal 0.0-0.45 [facility] Comment on above: Performed By: #### P T, PTT #### [place] [address] [place] Eosinophils/100 WBC (Bld) 0.0 % Normal . [facility] Comment on above: Performed By: #### P T, PTT #### [address] Erythrocyte distribution width (RBC) [Ratio] 15.2 % Normal 11.9-15.3 [facility] Comment on above: Performed By: #### P T, PTT #### [address] Hematocrit (Bld) [Volume fraction] 36.9 % Normal 34.0-46.4 [facility] Comment on above: Performed By: #### P T, PTT #### [address] Hemoglobin (Bld) [Mass/Vol] 11.9 g/dL Normal 11.8-15.4 [facility] Comment on above: Performed By: #### P T, PTT #### [place] [address] [place] Lymphocytes (Bld) [#/Vol] 0.6 10*3/uL Low 1.00-4.8 [facility] Comment on above: Performed By: #### P T, PTT #### [place] [address] [place] Lymphocytes/100 WBC (Bld) 10.0 % Normal . [facility] Comment on above: Performed By: #### P T, PTT #### [place] [address] [place] MCH (RBC) [Entitic mass] 28.5 pg Normal 24.7-34.3 [facility] Comment on above: Performed By: #### P T, PTT #### [address] MCV (RBC) [Entitic vol] 88.2 fL Normal 80-100 [facility] Comment on above: Performed By: #### P T, PTT #### [address] Mean Corpuscular HGB Conc 32.4 g/dL Normal 32.0-35.0 [facility] Comment on above: Performed By: #### P T, PTT #### [address] Monocytes (Bld) [#/Vol] 0.6 10*3/uL Normal 0.0-0.8 [facility] Comment on above: Performed By: #### P T, PTT #### [address] Monocytes/100 WBC (Bld) 8.6 % Normal . [facility] Comment on above: Performed By: #### P T, PTT #### [address] Neutrophils (Bld) [#/Vol] 5.3 10*3/uL Normal 1.8-7.7 [facility] Comment on above: Performed By: #### P T, PTT #### [address] Neutrophils/100 WBC (Bld) 81.3 % Normal . [facility] Comment on above: Performed By: #### P T, PTT #### [address] NRBC% 0.1 /100{WBC} Normal 0-0.5 [facility] Comment on above: Performed By: #### P T, PTT #### [address] Platelet mean volume (Bld) [Entitic vol] 8.5 fL Normal 6.3-10.7 [facility] Comment on above: Performed By: #### P T, PTT #### [address] Platelets (Bld) [#/Vol] 177 10*3/uL Normal 150-450 [facility] Comment on above: Performed By: #### P T, PTT #### [address] RBC (Bld) [#/Vol] 4.18 10*6/uL Normal 3.60-5.00 [facility] Comment on above: Performed By: #### P T, PTT #### [address] WBC (Bld) [#/Vol] 6.5 10*3/uL Normal 3.8-11.6 [facility] Comment on above: Performed By: #### P T, PTT #### [address] Creatinineon 11-22-2023 Creatinine [Mass/Vol] 1.15 mg/dL Normal 0.60-1.20 [facility] Comment on above: Performed By: #### P T, PTT #### [address] Creatinine Clr Calc Pharmacy 68.56 Normal [facility] Comment on above: Result Comment: PERF ORMED BY: [place] [address] PATHOLOGIST INVESTMENT REPRESENTATIVE SUNNI CH M.D. Performed By: #### P T, PTT #### [address] GFR/1.73 sq M.predicted MDRD (S/P/Bld) [Vol rate/Area] 54.198 mL/min/{1.73_m2} Normal [facility] Comment on above: Performed By: #### P T, PTT #### [address] Electrolyteson 11-22-2023 Anion gap [Moles/Vol] 11.4 mmol/L Normal 6.0-15.0 [facility] Comment on above: Performed By: #### P T, PTT #### [facility] [address] [place] [id number] [place] Chloride [Moles/Vol] 103 mmol/L Normal 98-107 [facility] Comment on above: Performed By: #### P T, PTT #### [facility] [address] [place] [id number] [place] CO2 [Moles/Vol] 28.3 mmol/L Normal 21.0-31.0 [facility] Comment on above: Performed By: #### P T, PTT #### [facility] [address] [place] [address] [place] Potassium [Moles/Vol] 4.7 mmol/L Normal 3.5-5.1 [facility] Comment on above: Performed By: #### P T, PTT #### [facility] [address] [place] [address] [place] Sodium [Moles/Vol] 138 mmol/L Normal 136-145 [facility] Comment on above: Performed By: #### P T, PTT #### [facility] [address] [place] [address] [place] Glucose Poct Glucometerson 0 11-22-2023 Glucose [Mass/Vol] 351 mg/dL Normal [facility] Comment on above: Result Comment: [facility] Glucose Reference Range is dependent on time and content of last meal. Glucose of more than 200 mg/dL in a nonstressed, ambulatory subject supports the diagnosis of Diabetes Mellitus. PERFORMED BY: [place] [address] PATHOLOGIST INVESTMENT REPRESENTATIVE SUNNI CH M.D. Performed By: #### B MP, CBC #### [facility] [address] [place] [address] [place] Glucose [Mass/Vol] 181 mg/dL Normal [facility] Comment on above: Result Comment: [facility] Glucose Reference Range is dependent on time and content of last meal. Glucose of more than 200 mg/dL in a nonstressed, ambulatory subject supports the diagnosis of Diabetes Mellitus. PERFORMED BY: [address] [address] PATHOLOGIST INVESTMENT REPRESENTATIVE SUNNI CH M.D. Performed By: #### P T, PTT #### [facility] [address] [place] [address] Glucose [Mass/Vol] 354 mg/dL Normal [facility] Comment on above: Result Comment: [facility] Glucose Reference Range is dependent on time and content of last meal. Glucose of more than 200 mg/dL in a nonstressed, ambulatory subject supports the diagnosis of Diabetes Mellitus. PERFORMED BY: [place] [address] PATHOLOGIST INVESTMENT REPRESENTATIVE SUNNI CH M.D. Performed By: #### G LULS #### Point of Care testing , INR in Platelet poor plasma by Coagulation assayOrdered By: Justine Jacobo on 11-22-2023 INR Coag (PPP) [Relative time] 1.2 {INR} [facility] Comment on above: INR Therapeutic Rang [...] PT Coag (PPP) [Time] 14.0 s 9.0-12.9 [facility] Comment on above: A hematocrit value g reater than 55% may lead to inaccurate results in coagulation testing. Patients having hematocrit values >55% require a special collection tube for coagulation studies. Please contact the laboratory at [phone] for redraw instructions. A1C with Estimated Average Alistair mehta 11-21-2023 Glucose [Mass/Vol] 88 mg/dL Normal [facility] Comment on above: Result Comment: PERF ORMED BY: [place] [address] PATHOLOGIST INVESTMENT REPRESENTATIVE SUNNI CH M.D. Performed By: #### P T, PTT #### [facility] [address] [place] [address] [place] HbA1c (Bld) [Mass fraction] 4.7 % Normal 4.3-5.6 [facility] Comment on above: Result Comment: Incr eased risk for diabetes: 5.7 - 6.4 diabetes: >6.4 glycemic control for adults with diabetes: <7.0 Performed By: #### P T, PTT #### [facility] [address] Automated erythrocytes count in urine sediment (number/area)Ordered By: Winter Norris on 11-21-2023 RBC Auto (Urine sed) [#/Area] 1-2 [HPF] 0-4 [facility] Automated leukocytes count i n urine sediment (number/area)Ordered By: Winter Norris on 11-21-2023 WBC Auto (Urine sed) [#/Area] 0-1 [HPF] 0-4 [facility] Basic Metabolic Panelon 11-07 Anion gap [Moles/Vol] 12.9 mmol/L Normal 6.0-15.0 [facility] Comment on above: Performed By: #### B MP, CBC #### [place] [address] [place] Calcium [Mass/Vol] 8.4 mg/dL Low 8.6-10.3 [facility] Comment on above: Performed By: #### B MP, CBC #### [place] [address] [place] Chloride [Moles/Vol] 106 mmol/L Normal 98-107 [facility] Comment on above: Performed By: #### B MP, CBC #### [place] [address] [place] CO2 [Moles/Vol] 22.3 mmol/L Normal 21.0-31.0 [facility] Comment on above: Performed By: #### B MP, CBC #### [address] Creatinine [Mass/Vol] 0.96 mg/dL Normal 0.60-1.20 [facility] Comment on above: Performed By: #### B MP, CBC #### [place] [address] [place] Creatinine Clr Calc Pharmacy 82.13 Normal [facility] Comment on above: Result Comment: PERF ORMED BY: [place] [address] PATHOLOGIST INVESTMENT REPRESENTATIVE SUNNI CH M.D. Performed By: #### B MP, CBC #### [place] [address] [place] GFR/1.73 sq M.predicted MDRD (S/P/Bld) [Vol rate/Area] mL/min/{1.73_m2} Normal [facility] Comment on above: Performed By: #### B MP, CBC #### [address] Glucose [Mass/Vol] 260 mg/dL High 70-100 [facility] Comment on above: Result Comment: [facility] Glucose Reference Range is dependent on time and content of last meal. Glucose of more than 200 mg/dL in a nonstressed, ambulatory subject supports the diagnosis of Diabetes Mellitus. ADA recommended reference range Performed By: #### B MP, CBC #### [place] [address] [place] Potassium [Moles/Vol] 4.2 mmol/L Normal 3.5-5.1 [facility] Comment on above: Performed By: #### B MP, CBC #### [place] [address] [place] Sodium [Moles/Vol] 137 mmol/L Normal 136-145 [facility] Comment on above: Performed By: #### B MP, CBC #### [place] [address] [place] Urea nitrogen [Mass/Vol] 18 mg/dL Normal 7-25 [facility] Comment on above: Performed By: #### B MP, CBC #### [address] Bilirubin Test strip Ql (U)O rdered By: Winter Norris on 11-21-2023 Bilirubin Ql (U) Negative Negative [facility] Cholesterol [Mass/volume] in Serum or PlasmaOrdered By: Karen Mays on 11-21-2023 Cholesterol [Mass/Vol] 95 mg/dL 140-200 [facility] Comment on above: Chol less than 200 m g/dl low riskChol 201-239 mg/dl borderline riskChol 240 mg/dl and greater high risk Cholesterol in LDL Calc [[facility] s/Vol]Ordered By: Karen Mays on 11-21-2023 Cholesterol in LDL [Mass/Vol] 53 mg/dL 0-100 [facility] Comment on above: LDL ATP III CLASSIFI CATIONLDL less than 100 mg/dL OptimalLDL 100-129 mg/dL Near or above optimalLDL 130-159 mg/dL Borderline highLDL 160-189 mg/dL HighLDL greater than 189 mg/dL Very high Cholesterol in VLDL Calc [Ma ss/Vol]Ordered By: Karen Mays on 11-21-2023 Cholesterol in VLDL [Mass/Vol] 12 mg/dL [facility] Color Auto (U)Ordered By: Juanita Norris on 11-21-2023 Color (U) Yellow Yellow [facility] Complete Blood Count Auto Di ffon 11-21-2023 Basophils (Bld) [#/Vol] 0.0 10*3/uL Normal 0.0-0.2 [facility] Comment on above: Result Comment: PERF ORMED BY: [place] [address] PATHOLOGIST INVESTMENT REPRESENTATIVE SUNNI CH M.D. Performed By: #### B MP, CBC #### [place] [address] [place] Basophils/100 WBC (Bld) 0.3 % Normal . [facility] Comment on above: Performed By: #### B MP, CBC #### [facility] [address] [place] [address] [place] Eosinophils (Bld) [#/Vol] 0.0 10*3/uL Normal 0.0-0.45 [facility] Comment on above: Performed By: #### B MP, CBC #### [place] [address] [place] Eosinophils/100 WBC (Bld) 0.0 % Normal . [facility] Comment on above: Performed By: #### B MP, CBC #### [address] Erythrocyte distribution width (RBC) [Ratio] 15.3 % Normal 11.9-15.3 [facility] Comment on above: Performed By: #### B MP, CBC #### [address] Hematocrit (Bld) [Volume fraction] 37.6 % Normal 34.0-46.4 [facility] Comment on above: Performed By: #### B MP, CBC #### [address] Hemoglobin (Bld) [Mass/Vol] 12.3 g/dL Normal 11.8-15.4 [facility] Comment on above: Performed By: #### B MP, CBC #### [address] Lymphocytes (Bld) [#/Vol] 0.3 10*3/uL Low 1.00-4.8 [facility] Comment on above: Performed By: #### B MP, CBC #### [address] Lymphocytes/100 WBC (Bld) 5.3 % Normal . [facility] Comment on above: Performed By: #### B MP, CBC #### [address] MCH (RBC) [Entitic mass] 29.0 pg Normal 24.7-34.3 [facility] Comment on above: Performed By: #### B MP, CBC #### [address] MCV (RBC) [Entitic vol] 88.3 fL Normal 80-100 [facility] Comment on above: Performed By: #### B MP, CBC #### [address] Mean Corpuscular HGB Conc 32.8 g/dL Normal 32.0-35.0 [facility] Comment on above: Performed By: #### B MP, CBC #### [address] Monocytes (Bld) [#/Vol] 0.1 10*3/uL Normal 0.0-0.8 [facility] Comment on above: Performed By: #### B MP, CBC #### [address] Monocytes/100 WBC (Bld) 2.4 % Normal . [facility] Comment on above: Performed By: #### B MP, CBC #### [address] Neutrophils (Bld) [#/Vol] 4.9 10*3/uL Normal 1.8-7.7 [facility] Comment on above: Performed By: #### B MP, CBC #### [address] Neutrophils/100 WBC (Bld) 92.0 % Normal . [facility] Comment on above: Performed By: #### B MP, CBC #### [address] NRBC% 0.0 /100{WBC} Normal 0-0.5 [facility] Comment on above: Performed By: #### B MP, CBC #### [address] Platelet mean volume (Bld) [Entitic vol] 8.3 fL Normal 6.3-10.7 [facility] Comment on above: Performed By: #### B MP, CBC #### [place] [address] [place] Platelets (Bld) [#/Vol] 158 10*3/uL Normal 150-450 [facility] Comment on above: Performed By: #### B MP, CBC #### [place] [address] [place] RBC (Bld) [#/Vol] 4.25 10*6/uL Normal 3.60-5.00 [facility] Comment on above: Performed By: #### B MP, CBC #### [address] WBC (Bld) [#/Vol] 5.4 10*3/uL Normal 3.8-11.6 [facility] Comment on above: Performed By: #### B MP, CBC #### [place] [address] [place] Dipstick and Microscopicon 0 11-21-2023 Appearance (U) Clear Normal Clear [facility] Comment on above: Order Comment: Name Collection Type:: Clean-Voided Midstream Performed By: #### B MP, CBC #### [address] Bacteria,Urine None Seen Normal None Seen [facility] Comment on above: Order Comment: Name Collection Type:: Clean-Voided Midstream Performed By: #### B MP, CBC #### [address] Bilirubin,Urine Negative Normal Negative [facility] Comment on above: Order Comment: Name Collection Type:: Clean-Voided Midstream Performed By: #### B MP, CBC #### [address] Color (U) Yellow Normal Yellow [facility] Comment on above: Order Comment: Name Collection Type:: Clean-Voided Midstream Performed By: #### B MP, CBC #### [address] Glucose Ql (U) >=1000 High Normal [facility] Comment on above: Order Comment: Name Collection Type:: Clean-Voided Midstream Performed By: #### B MP, CBC #### [place] [address] [place] Hyaline Casts,Urine None Seen Normal 0-8 [facility] Comment on above: Order Comment: Name Collection Type:: Clean-Voided Midstream Result Comment: PERF ORMED BY: [place] [address] PATHOLOGIST INVESTMENT REPRESENTATIVE SUNNI CH M.D. Performed By: #### B MP, CBC #### [address] Ketones Ql (U) Negative Normal Negative [facility] Comment on above: Order Comment: Name Collection Type:: Clean-Voided Midstream Performed By: #### B MP, CBC #### [address] Leukocyte esterase Test strip Ql (U) Negative Normal Negative [facility] Comment on above: Order Comment: Name Collection Type:: Clean-Voided Midstream Performed By: #### B MP, CBC #### [place] [address] [place] Nitrite,Urine Negative Normal Negative [facility] Comment on above: Order Comment: Name Collection Type:: Clean-Voided Midstream Performed By: #### B MP, CBC #### [address] Occult Blood,Urine 1+ High Negative [facility] Comment on above: Order Comment: Name Collection Type:: Clean-Voided Midstream Result Comment: PERF ORMED BY: [place] [address] PATHOLOGIST INVESTMENT REPRESENTATIVE SUNNI CH M.D. Performed By: #### B MP, CBC #### [address] pH (U) 5.5 [pH] Normal 5.0-9.0 [facility] Comment on above: Order Comment: Name Collection Type:: Clean-Voided Midstream Performed By: #### B MP, CBC #### [place] [address] [place] Protein,Urine Negative Normal Negative [facility] Comment on above: Order Comment: Name Collection Type:: Clean-Voided Midstream Performed By: #### B MP, CBC #### [address] RBC,Urine 1-2 Normal 0-4 [facility] Comment on above: Order Comment: Name Collection Type:: Clean-Voided Midstream Performed By: #### B MP, CBC #### [address] Specificy Orange,Urine 1.012 Normal 1.001-1.03 0 [facility] Comment on above: Order Comment: Name Collection Type:: Clean-Voided Midstream Performed By: #### B MP, CBC #### [address] Squamous Epithelial Cell,Urine None Seen Normal 0-2 [facility] Comment on above: Order Comment: Name Collection Type:: Clean-Voided Midstream Performed By: #### B MP, CBC #### [address] Urobilinogen,Urine Normal Normal Normal [facility] Comment on above: Order Comment: Name Collection Type:: Clean-Voided Midstream Performed By: #### B MP, CBC #### [address] WBC LM.HPF (Urine sed) [#/Area] 0 /[HPF] Normal 0-4 [facility] Comment on above: Order Comment: Name Collection Type:: Clean-Voided Midstream Performed By: #### B MP, CBC #### [address] ECG 12 lead ECGon 11-21-2023 ECG 12 lead ECG [facility] [place] [address] Electrocardiograph Report Signed Patient: Melissa Dubose MR#: [id number] 70 : 1960 Acct:[id number] Age/Sex: 63 / F ADM Date: 11/21/23 Loc: Room: [address] [place] [address] Type: ADM IN Attending Dr: Winter Norris [...] 0 11/21/23 1232 Normal [facility] echo transthoracicon [facility] echo transthoracic [facility] Main [place] [address] [place] [address] Echocardiogram Signed Patient: Melissa Dubose MR#: [id number] 70 : 1960 Acct:[id number] Age/Sex: 63 / F ADM Date: 11/21/23 Loc: Room: [address] [place] [address] Type: ADM IN Attending Dr: Winter Norris MD Ordering Provider: Karen Mays APRN Date of Service: 11/21/23 [facility] echo transthoracic: nstemi Copies to: MD Karen Treadwell, [employer] CHECKER Weight: 239 lb Performed By: WILMA Rangel BSA: 2.3 m2 BP: 138/79 mmHg HR: 94 Reason For Study: nstemi History: [place]. HTN. DM. CABG. Former Smoker. Interpretation Summary [...] MD 11/21/23 1116 Normal [facility] Glucose Poct Glucometerson 0 11-21-2023 Commemt1 Normal [facility] Comment on above: Result Comment: Glu2 : WILL NOTIFY DR/RN Performed By: #### P T, PTT #### [address] Commemt2 Cleaned Meter Normal [facility] Comment on above: Performed By: #### P T, PTT #### [facility] [address] Commemt3 Will Repeat Test Normal [facility] Comment on above: Result Comment: PERF ORMED BY: [place] [address] PATHOLOGIST INVESTMENT REPRESENTATIVE SUNNI CH M.D. Performed By: #### P T, PTT #### [address] Glucose [Mass/Vol] 405 mg/dL Off scale high [facility] Comment on above: Result Comment: [facility] Glucose Reference Range is dependent on time and content of last meal. Glucose of more than 200 mg/dL in a nonstressed, ambulatory subject supports the diagnosis of Diabetes Mellitus. Performed By: #### P T, PTT #### [address] Glucose [Mass/Vol] 345 mg/dL Normal [facility] Comment on above: Result Comment: [facility] Glucose Reference Range is dependent on time and content of last meal. Glucose of more than 200 mg/dL in a nonstressed, ambulatory subject supports the diagnosis of Diabetes Mellitus. PERFORMED BY: [place] [address] PATHOLOGIST INVESTMENT REPRESENTATIVE SUNNI CH M.D. Performed By: #### B MP, CBC #### [facility] [address] [place] [address] Glucose [Mass/Vol] 367 mg/dL Normal [facility] Comment on above: Result Comment: [facility] Glucose Reference Range is dependent on time and content of last meal. Glucose of more than 200 mg/dL in a nonstressed, ambulatory subject supports the diagnosis of Diabetes Mellitus. PERFORMED BY: [place] [address] PATHOLOGIST INVESTMENT REPRESENTATIVE SUNNI CH M.D. Performed By: #### B MP, CBC #### [address] Glucose [Mass/Vol] 281 mg/dL Normal [facility] Comment on above: Result Comment: [facility] Glucose Reference Range is dependent on time and content of last meal. Glucose of more than 200 mg/dL in a nonstressed, ambulatory subject supports the diagnosis of Diabetes Mellitus. PERFORMED BY: [place] [address] PATHOLOGIST INVESTMENT REPRESENTATIVE SUNNI CH M.D. Performed By: #### B MP, CBC #### [place] [id number] [facility] Glucose mean value [Mass/vol ume] in Blood Estimated from glycated hemoglobinOrdered By: Karen Mays on 11-21-2023 Average glucose Estimated from glycated hemoglobin (Bld) [Mass/Vol] 88 mg/dL [facility] Hemoglobin A1c percentageOrd ered By: Karen Mays on 11-21-2023 HbA1c (Bld) [Mass fraction] 4.7 % 4.3-5.6 [facility] Comment on above: Increased risk for d iabetes: 5.7 - 6.4diabetes: >6.4glycemic control for adults with diabetes: <7.0 Ketones Auto test strip (U) [Mass/Vol]Ordered By: Winter Norris on 11-21-2023 Ketones (U) [Mass/Vol] Negative Negative [facility] - UrinalysisOrder ed By: Winter Norris on 11-21-2023 Hyaline casts LM Ql (Urine sed) None seen [LPF] 0-8 [facility] Lactate [Moles/volume] in Se rum or PlasmaOrdered By: Karen Mays on 11-21-2023 Lactate [Moles/Vol] 1.5 mmol/L 0.5-2.2 [facility] Lactic Acidon 11-21-2023 Lactate [Moles/Vol] 1.5 mmol/L Normal 0.5-2.2 [facility] Comment on above: Result Comment: PERF ORMED BY: [place] [address] PATHOLOGIST INVESTMENT REPRESENTATIVE SUNNI CH M.D. Performed By: #### B MP, CBC #### [facility] [address] [place] [id number] [facility] Lipid Panelon 11-21-2023 Cholesterol [Mass/Vol] 95 mg/dL Low 140-200 [facility] Comment on above: Result Comment: Chol less than 200 mg/dl low risk Chol 201-239 mg/dl borderline risk Chol 240 mg/dl and greater high risk Performed By: #### L IPID, A1C WT eA #### [facility] [address] [place] [id number] [facility] Cholesterol in HDL [Mass/Vol] 29 mg/dL Normal 23-92 [facility] Comment on above: Result Comment: HDL CHOL ATP-III CLASSIFICATION Cardiovascular Risk HDL > or equal to 60 mg/dL LOW HDL < 40 mg/dL HIGH Performed By: #### L IPID, A1C WT eA #### [facility] [address] [place] [id number] [place] Cholesterol.total/Cho lesterol in HDL [Mass ratio] 3.3 {ratio} Normal <5.0 [facility] Comment on above: Result Comment: PERF ORMED BY: [facility] [address] [facility] [place] [address] PATHOLOGIST INVESTMENT REPRESENTATIVE SUNNI CH M.D. Performed By: #### L IPID, A1C WT eA #### [facility] [address] [place] [id number] [place] LDL Cholesterol,Calculate d 53 mg/dL Normal 0-100 [facility] Comment on above: Result Comment: LDL ATP III CLASSIFICATION LDL less than 100 mg/dL Optimal LDL 100-129 mg/dL Near or above optimal LDL 130-159 mg/dL Borderline high LDL 160-189 mg/dL High LDL greater than 189 mg/dL Very high Performed By: #### L IPID, A1C WT eA #### [address] Triglyceride w/Reflex 63 mg/dL Normal 0-149 [facility] Comment on above: Result Comment: TRIG ATP III CLASSIFICATION TRIG less than 150 mg/dL Normal TRIG 150-199 mg/dL Borderline high TRIG 200-500 mg/dL High TRIG greater than 500 mg/dL Very high Standard traceable to the Center for Disease Conrtrol and Prevention (CDC) test method. Performed By: #### L IPID, A1C WT eA #### [address] VLDL CHOLESTEROL 12 mg/dL Normal [facility] Comment on above: Performed By: #### L IPID, A1C WT eA #### [address] Nitrite Test strip Ql (U)Ord ered By: Winter Norris on 11-21-2023 Nitrite Ql (U) Negative Negative [facility] No Panel InformationOrdered By: Winter Norris on 11-21-2023 Bedside Glucose #2 Comment Cleaned meter [facility] Bedside Glucose #3 Comment Will repeat test [facility] Partial Thromboplastin Timeo n 11-21-2023 aPTT Coag (Bld) [Time] 47.2 s High 25.1-36.5 [facility] Comment on above: Order Comment: List the anticoagulant: HEPARIN, UNFRACTIONATED Result Comment: A he matocrit value greater than 55% may lead to inaccurate results in coagulation testing. Patients having hematocrit values >55% require a special collection tube for coagulation studies. Please contact the laboratory at [phone] for redraw instructions. PERFORMED BY: [place] [address] PATHOLOGIST INVESTMENT REPRESENTATIVE SUNNI CH M.D. Performed By: #### P TT #### [address] aPTT Coag (Bld) [Time] 152.4 s Off scale high 25.1-36.5 [facility] Comment on above: Order Comment: List the anticoagulant: HEPARIN, UNFRACTIONATED Result Comment: Crit ical value result called at 1511 on 11/21/23 A hematocrit value greater than 55% may lead to inaccurate results in coagulation testing. Patients having hematocrit values >55% require a special collection tube for coagulation studies. Please contact the laboratory at [phone] for redraw instructions. PERFORMED BY: [place] [address] PATHOLOGIST INVESTMENT REPRESENTATIVE SUNNI CH M.D. Performed By: #### B MP, CBC #### [facility] [address] [place] [address] [place] aPTT Coag (Bld) [Time] s Off scale high 25.1-36.5 [facility] Comment on above: Order Comment: DRAW ALL LABS AT 1015 PER CHARLES COLLINS List the anticoagulant: HEPARIN, UNFRACTIONATED Result Comment: Crit ical value result called at 1152 on 11/21/23 A hematocrit value greater than 55% may lead to inaccurate results in coagulation testing. Patients having hematocrit values >55% require a special collection tube for coagulation studies. Please contact the laboratory at [phone] for redraw instructions. PERFORMED BY: [place] [address] PATHOLOGIST INVESTMENT REPRESENTATIVE SUNNI CH M.D. Performed By: #### B MP, CBC #### [facility] [address] [place] [address] [place] aPTT Coag (Bld) [Time] 51.3 s High 25.1-36.5 [facility] Comment on above: Result Comment: A he matocrit value greater than 55% may lead to inaccurate results in coagulation testing. Patients having hematocrit values >55% require a special collection tube for coagulation studies. Please contact the laboratory at [phone] for redraw instructions. PERFORMED BY: [address] [address] PATHOLOGIST INVESTMENT REPRESENTATIVE SUNNI CH M.D. Performed By: #### P T, PTT #### [facility] [address] [place] [address] [facility] Protein Auto test strip (U) [Mass/Vol]Ordered By: Winter Norris on 11-21-2023 Protein (U) [Mass/Vol] Negative Negative [facility] Prothrombin Time INRon 11-20 INR Coag (PPP) [Relative time] 1.4 {INR} Normal [facility] Comment on above: Result Comment: [...] Performed By: #### P T, PTT #### [facility] [address] [place] [id number] [facility] PT Coag (PPP) [Time] 15.6 s High 9.0-12.9 [facility] Comment on above: Result Comment: A he matocrit value greater than 55% may lead to inaccurate results in coagulation testing. Patients having hematocrit values >55% require a special collection tube for coagulation studies. Please contact the laboratory at [phone] for redraw instructions. Performed By: #### P T, PTT #### [facility] [address] [place] [id number] [facility] Serum or plasma high density lipoprotein (HDL) cholesterol measurementOrdered By: Karen Mays on 11-21-2023 Cholesterol in HDL [Mass/Vol] 29 mg/dL 23-92 [facility] Comment on above: HDL CHOL ATP-III CLA SSIFICATION Cardiovascular RiskHDL > or equal to 60 mg/dL LOWHDL < 40 mg/dL HIGH Serum or plasma total choles terol/high density lipoprotein (HDL) cholesterol mass ratOrdered By: Karen Mays on 11-21-2023 Cholesterol.total/Cho lesterol in HDL [Mass ratio] 3.3 {ratio} <5.0 [facility] Specific gravity Auto test s trip (U) [Rel density]Ordered By: Wniter Norris on 11-21-2023 Specific gravity (U) [Rel density] 1.012 1.001-1.03 0 [facility] Squamous epithelial cells de tection in urine sediment by light microscopyOrdered By: Winter Norris on 11-21-2023 Epithelial cells.squamous LM Ql (Urine sed) None seen [HPF] 0-2 [facility] Triglyceride [Mass/volume] i n Serum or PlasmaOrdered By: Karen Mays on 11-21-2023 Triglyceride [Mass/Vol] 63 mg/dL 0-149 [facility] Comment on above: TRIG ATP III CLASSIF ICATIONTRIG less than 150 mg/dL NormalTRIG 150-199 mg/dL Borderline highTRIG 200-500 mg/dL High TRIG greater than 500 mg/dL Very highStandard traceable to the Center for Disease Conrtrol and Prevention (CDC) test method. Troponin I High Sensitivityo n 11-21-2023 Troponin I High Sensitivity 70.7 pg/mL Off scale high 0.0-15.0 [facility] Comment on above: Order Comment: DRAW ALL LABS AT 1015 PER RN DENNIS Result Comment: Crit ical Result : Called to and read back by: DENNIS CAMPBELL at: 11/21/2023 11:29:54 by:SAMINA PERFORMED BY: [place] [address] PATHOLOGIST INVESTMENT REPRESENTATIVE SUNNI CH M.D. Performed By: #### B MP, CBC #### [facility] [address] [place] [address] Troponin I High Sensitivity 75.8 pg/mL Off scale high 0.0-15.0 [facility] Comment on above: Order Comment: 0607 draw Result Comment: Crit ical Result : Called to and read back by: JEREMY ESTRADA at: 11/21/2023 07:30:30 by:[id number] PERFORMED BY: [place] [address] PATHOLOGIST INVESTMENT REPRESENTATIVE SUNNI CH M.D. Performed By: #### H S TROP #### [facility] [address] [place] [address] Troponin I High Sensitivity 85.3 pg/mL Off scale high 0.0-15.0 [facility] Comment on above: Result Comment: Crit ical Result : Called to and read back by: ALBER ONEILL at: 11/21/2023 05:03:43 by:[id number] PERFORMED BY: [place] [address] PATHOLOGIST INVESTMENT REPRESENTATIVE SUNNI CH M.D. Performed By: #### H S TROP #### [address] Troponin I.cardiac [Mass/vol ume] in Serum or Plasma by Detection limit <= 0.01 ng/Ordered By: Karen Mays on 11-21-2023 Troponin I.cardiac DL <= 0.01 ng/mL [Mass/Vol] 70.7 pg/mL 0.0-15.0 [facility] Comment on above: Critical Result : Ca lled to and read back by: DENNIS CAMPBELL at: 11/21/2023 11:29:54 by:SAMINA Urine bacteria detection by automated methodOrdered By: Winter Norris on 11-21-2023 Bacteria Auto Ql (U) None seen None Seen [facility] Urine clarity by refractomet ry automatedOrdered By: Winter Norris on 11-21-2023 Clarity Refractometry automated (U) Clear Clear [facility] Urine glucose measurement by automated test strip (mass/volume)Ordered By: Winter Norris on 11-21-2023 Glucose Auto test strip (U) [Mass/Vol] >=1000 mg/dL Normal [facility] Urine hemoglobin detection b y automated test stripOrdered By: Winter Norris on 11-21-2023 Hemoglobin Auto test strip Ql (U) 1+ Negative [facility] Urine leukocyte esterase det ection by automated test stripOrdered By: Winter Norris on 11-21-2023 Leukocyte esterase Auto test strip Ql (U) Negative Negative [facility] Urobilinogen Auto test strip (U) [Mass/Vol]Ordered By: Winter Norris on 11-21-2023 Urobilinogen (U) [Mass/Vol] Normal mg/dL Normal [facility] XR chest 1V portableon 11-20 XR chest 1V portable [facility] [place] [address] [place] [address] XRay Report Signed Patient: Melissa Dubose MR#: [id number] 70 : 1960 Acct:[id number] Age/Sex: 63 / F ADM Date: 11/21/23 Loc: Room: [address] [place] [address] Type: ADM IN Attending Dr: Winter Norris [...] Orville Oliver M.D.11/21/2023 5:01 PM Dictation Location: [place] [address] Transcribed By: [facility] 11/21/23 1701 Dictated By: Orville Oliver II, MD 11/21/23 1658 Signed By: 11/21/23 1701 Normal [facility] pH Auto test strip (U)Ordere d By: Winter Norris on 11-21-2023 pH (U) 5.5 [pH] 5.0-9.0 [facility] CBC AUTO DIFFon 01-23-2023 BASO # 0.0 103/ul Normal 0.0-0.1 [facility] Comment on above: Performed By: #### I VINCE #### [facility] [address] [place] [address] [address] Chi Keith Basophils/100 WBC (Bld) 0.4 % Normal 0.2-2.0 [facility] Comment on above: Performed By: #### I VINCE #### [facility] [address] [place] [address] Dr. Chi Keith EO # 0.1 103/ul Normal 0.0-0.7 [facility] Comment on above: Performed By: #### I VINCE #### [facility] [address] [place] [address] Dr. Chi Keith Eosinophils/100 WBC (Bld) 1.9 % Normal 0.9-7.0 [facility] Comment on above: Performed By: #### I VINCE #### [facility] [address] [place] [address] Dr. Chi Keith Erythrocyte distribution width (RBC) [Ratio] 13.9 % Normal 11.0-15.0 [facility] Comment on above: Performed By: #### I VINCE #### [facility] [address] [place] [address] Dr. Chi Keith Hematocrit (Bld) [Volume fraction] 40.5 % Normal 36.0-48.0 [facility] Comment on above: Performed By: #### I VINCE #### [facility] [address] [place] [address] Dr. Chi Keith Hemoglobin (Bld) [Mass/Vol] 12.9 g/dL Normal 12.0-16.0 [facility] Comment on above: Performed By: #### I VINCE #### [facility] [address] [place] [address] Dr. Chi Keith IG # 0.02 10e3/ul Normal 0.00-0.03 [facility] Comment on above: Performed By: #### I VINCE #### [facility] [address] [place] [address] Dr. Chi Keith IG % 0.3 % Normal 0.0-0.5 [facility] Comment on above: Performed By: #### I VINCE #### [facility] [address] [place] [address] Dr. Chi Keith LYMPH # 1.4 103/ul Normal 1.2-3.8 [facility] Comment on above: Performed By: #### I VINCE #### [facility] [address] [place] [address] Dr. Chi Keith Lymphocytes/100 WBC (Bld) 18.7 % Critically low 20.5-60.0 [facility] Comment on above: Performed By: #### I VINCE #### [facility] [address] [place] [address] Dr. Chi Keith MANUAL DIFF REQ NO Normal [facility] Comment on above: Performed By: #### I VINCE #### [facility] [address] [place] [address] Dr. Chi Keith MCH (RBC) [Entitic mass] 29.7 pg Normal 26.7-34.0 [facility] Comment on above: Performed By: #### I VINCE #### [facility] [address] [place] [address] Dr. Chi Keith MCHC (RBC) [Mass/Vol] 31.9 g/dL Normal 29.9-35.2 [facility] Comment on above: Performed By: #### I VINCE #### [facility] [address] [place] [address] Dr. Chi Keith MCV (RBC) [Entitic vol] 93.1 fL Normal 81.0-99.0 [facility] Comment on above: Performed By: #### I VINCE #### [facility] [address] [place] [address] Dr. Chi Keith MONO # 0.5 103/ul Normal 0.3-0.8 [facility] Comment on above: Performed By: #### I VINCE #### [facility] [address] [place] [address] Dr. Chi Keith Monocytes/100 WBC (Bld) 6.4 % Normal 1.7-12.0 [facility] Comment on above: Performed By: #### I VINCE #### [facility] [address] [place] [address] Dr. Chi Keith NEUT # 5.4 103/ul Normal 1.4-6.5 [facility] Comment on above: Performed By: #### I VINCE #### [facility] [address] [place] [address] Dr. Chi Keith Neutrophils/100 WBC (Bld) 72.3 % Normal 43.0-75.0 [facility] Comment on above: Performed By: #### I VINCE #### [facility] [address] [place] [address] Dr. Chi Keith Platelet mean volume (Bld) [Entitic vol] 10.1 fL Normal 9.5-13.5 [facility] Comment on above: Performed By: #### I VINCE #### [facility] [address] [place] [address] Dr. Chi Keith PLT 271 103/ul Normal 150-450 [facility] Comment on above: Performed By: #### I VINCE #### [facility] [address] [place] [address] Dr. Chi Keith RBC 4.35 106/ul Normal 4.20-5.40 [facility] Comment on above: Performed By: #### I VINCE #### [facility] [address] [place] [address] Dr. Chi Keith WBC 7.5 103/ul Normal 4.0-11.0 [facility] Comment on above: Performed By: #### I VINCE #### [facility] [address] [place] [address] Dr. Chi Keith FREE THYROXINE INDEX T7on FTI 3.94 Normal 1.30-4.50 [facility] Comment on above: Performed By: #### T 7, LIPID, TSH, CMP #### [facility] [address] [place] [address] Dr. Chi Keith T3U 31.0 % Normal 30.0-39.0 [facility] Comment on above: Performed By: #### T 7, LIPID, TSH, CMP #### [facility] [address] [place] [address] Dr. Chi Keith T4 [Mass/Vol] 12.70 ug/dL Normal 4.80-13.90 [facility] Comment on above: Performed By: #### T 7, LIPID, TSH, CMP #### [facility] [address] [place] [address] Dr. Chi Keith GLYCOHEMOGLOBIN A1Con 2022 ADA RECOMMENDATION SEE BELOW Normal [facility] Comment on above: Result Comment: ADA RECOMMENDED LIMIT 4.0 - 6.0 ADA THERAPEUTIC TARGET < 7.0 ACTION SUGGESTED > 7.0 Performed By: #### A 1C #### [facility] [address] [place] [address] Dr. Chi Keith Glucose [Mass/Vol] 120 mg/dL Normal [facility] Comment on above: Performed By: #### A 1C #### [facility] [address] [place] [address] Dr. Chi Keith HbA1c (Bld) [Mass fraction] 5.8 % Normal 4.5-6.2 [facility] Comment on above: Performed By: #### A 1C #### [facility] [address] [place] [address] Dr. Chi Keith IRONon 01-23-2023 Iron [Mass/Vol] 109.0 ug/dL Normal 50.0-170.0 [facility] Comment on above: Performed By: #### I VINCE #### [facility] [address] [place] [address] Dr. Chi Keith LIPID PROFILEon 01-23-2023 CHOL-HDL RATIO NORM SEE BELOW Normal [facility] Comment on above: Result Comment: 3.3 - 4.4 LOW RISK 4.4 - 7.1 AVERAGE RISK 7.1 - 11.0 MODERATE RISK >11.0 HIGH RISK Performed By: #### T 7, LIPID, TSH, CMP #### [facility] [address] [place] [address] Dr. Chi Keith Cholesterol [Mass/Vol] 209 mg/dL Critically high <=200 [facility] Comment on above: Performed By: #### T 7, LIPID, TSH, CMP #### [facility] [address] [place] [address] Dr. Chi Keith Cholesterol in HDL [Mass/Vol] 41 mg/dL Normal 40-60 [facility] Comment on above: Performed By: #### T 7, LIPID, TSH, CMP #### [facility] [address] [address] [address] Chi Keith Cholesterol in LDL [Mass/Vol] 135.0 mg/dL Normal [facility] Comment on above: Performed By: #### T 7, LIPID, TSH, CMP #### [facility] [address] [address] [address] Chi Keith Cholesterol.total/Cho lesterol in HDL [Mass ratio] 5.1 {ratio} Normal [facility] Comment on above: Performed By: #### T 7, LIPID, TSH, CMP #### [facility] [address] [address] [address] Chi Keith HDL NORMAL > or = 60 mg/dl - LO W CARDIOVASCULAR RISK <40 mg/dl - HIGH CARDIOVASCULAR RISK Normal [facility] Comment on above: Performed By: #### T 7, LIPID, TSH, CMP #### [facility] [address] [address] [address] Chi Keith LDL CALC NORMAL SEE BELOW Normal [facility] Comment on above: Result Comment: <100 mg/dl OPTIMAL 100 - 129 mg/dl NEAR OR ABOVE OPTIMAL 130 - 159 mg/dl BORDERLINE HIGH 160 - 189 mg/dl HIGH >190 mg/dl VERY HIGH Performed By: #### T 7, LIPID, TSH, CMP #### [facility] [address] [place] [address] Dr. Chi Keith Triglyceride [Mass/Vol] 165 mg/dL Critically high <=150 [facility] Comment on above: Performed By: #### T 7, LIPID, TSH, CMP #### [facility] [address] [place] [address] [address] Chi Keith VLDL CALC 33.0 mg/dL Normal [facility] Comment on above: Performed By: #### T 7, LIPID, TSH, CMP #### [facility] [address] [place] [address] [address] Chi Keith PROF 14(COMP METB)on 023 Albumin [Mass/Vol] 3.1 g/dL Critically low 3.4-5.0 [facility] Comment on above: Performed By: #### T 7, LIPID, TSH, CMP #### [facility] [address] [place] [address] [address] Chi Keith Albumin/Globulin [Mass ratio] 0.8 {ratio} Normal [facility] Comment on above: Performed By: #### T 7, LIPID, TSH, CMP #### [facility] [address] [place] [address] [address] Chi Keith ALP [Catalytic activity/Vol] 86 U/L Normal 46-116 [facility] Comment on above: Performed By: #### T 7, LIPID, TSH, CMP #### [facility] [address] [place] [address] Dr. Chi Keith ALT [Catalytic activity/Vol] 35 U/L Normal 14-59 [facility] Comment on above: Performed By: #### T 7, LIPID, TSH, CMP #### [facility] [address] [place] [address] Dr. Chi Keith Anion gap [Moles/Vol] 13.9 mmol/L Normal [facility] Comment on above: Performed By: #### T 7, LIPID, TSH, CMP #### [facility] [address] [place] [address] Dr. Chi Keith AST [Catalytic activity/Vol] 29 U/L Normal 15-37 [facility] Comment on above: Performed By: #### T 7, LIPID, TSH, CMP #### [facility] [address] [place] [address] Dr. Chi Keith Bilirubin [Mass/Vol] 0.6 mg/dL Normal 0.2-1.0 [facility] Comment on above: Performed By: #### T 7, LIPID, TSH, CMP #### [facility] [address] [place] [address] Dr. Chi Keith Calcium [Mass/Vol] 9.7 mg/dL Normal 8.5-10.1 [facility] Comment on above: Performed By: #### T 7, LIPID, TSH, CMP #### [facility] [address] [place] [address] Dr. Chi Keith Chloride [Moles/Vol] 106 mmol/L Normal 98-107 [facility] Comment on above: Performed By: #### T 7, LIPID, TSH, CMP #### [facility] [address] [address] [address] Chi Keith CO2 [Moles/Vol] 28.1 mmol/L Normal 21.0-32.0 [facility] Comment on above: Performed By: #### T 7, LIPID, TSH, CMP #### [facility] [address] [place] [address] Dr. Chi Keith Creatinine [Mass/Vol] 1.33 mg/dL Critically high 0.55-1.02 [facility] Comment on above: Performed By: #### T 7, LIPID, TSH, CMP #### [facility] [address] [place] [address] Dr. Chi Keith EGFR-AF MAURITANIAN 49 mL/min/1.73m2 Critically low >=60 [facility] Comment on above: Performed By: #### T 7, LIPID, TSH, CMP #### [facility] [address] [place] [address] Dr. Chi Keith EGFR-NON AF MAURITANIAN 41 mL/min/1.73m2 Critically low >=60 [facility] Comment on above: Performed By: #### T 7, LIPID, TSH, CMP #### [facility] [address] [place] [address] Dr. Chi Keith Globulin (S) [Mass/Vol] 3.8 g/dL Normal [facility] Comment on above: Performed By: #### T 7, LIPID, TSH, CMP #### [facility] [address] [place] [address] Dr. Chi Keith Glucose [Mass/Vol] 116 mg/dL Critically high 74-106 [facility] Comment on above: Performed By: #### T 7, LIPID, TSH, CMP #### [facility] [address] [place] [address] Dr. Chi Keith Potassium [Moles/Vol] 4.0 mmol/L Normal 3.5-5.1 [facility] Comment on above: Performed By: #### T 7, LIPID, TSH, CMP #### [facility] [address] [place] [address] Dr. Chi Keith Protein [Mass/Vol] 6.9 g/dL Normal 6.4-8.2 [facility] Comment on above: Performed By: #### T 7, LIPID, TSH, CMP #### [facility] [address] [place] [address] Dr. Chi Keith Sodium [Moles/Vol] 144 mmol/L Normal 136-145 [facility] Comment on above: Performed By: #### T 7, LIPID, TSH, CMP #### [facility] [address] [place] [address] Dr. Chi Keith Urea nitrogen [Mass/Vol] 20.0 mg/dL Critically high 7.0-18.0 [facility] Comment on above: Performed By: #### T 7, LIPID, TSH, CMP #### [facility] [address] [place] [address] Dr. Chi Keith Urea nitrogen/Creatinine [Mass ratio] 15.0 mg/mg Normal [facility] Comment on above: Performed By: #### T 7, LIPID, TSH, CMP #### [facility] [address] [place] [address] Dr. Chi Keith TSHon 01-23-2023 TSH 0.995 uIU/mL Normal 0.358-3.74 0 [facility] Comment on above: Performed By: #### T 7, LIPID, TSH, CMP #### [facility] [address] [place] [address] Dr. Chi Keith [facility]on SARS-CoV-2 (COVID-19) RNA ALEXANDREA+probe Ql (Unsp spec) Detected Critically abnormal NOT DETECTED [facility] Comment on above: Result Comment: This test is not yet approved or cleared by the [place] FDA. When there are no FDA-approved or cleared tests available, and other criteria are met, FDA can make tests available under an emergency access mechanism called an Emergency Use Authorization (EUA). The EUA for this test is supported by the Application Consultant of Health and Human Service's declaration that [...] used). Performed By: #### I VINCE #### [facility] [address] [place] [address] Dr. Chi Keith INFLUENZA A AND B AGon 08-13 INFLUENZA A AG Negative Normal NEGATIVE SEE COMMENT [facility] Comment on above: Performed By: #### I VINCE #### [facility] [address] [place] [address] Dr. Chi Keith INFLUENZA B AG Negative Normal NEGATIVE SEE COMMENT [facility] Comment on above: Performed By: #### I VINCE #### [facility] [address] [place] [address] Dr. Chi Keith INTERNAL CONTROLS Within Normal Limits Normal Wi thin Normal Limits [facility] Comment on above: Performed By: #### I VINCE #### [facility] [address] [place] [address] Dr. Chi Keith CARDIAC [place] ADMITon 022 CK [Catalytic activity/Vol] 34 U/L Normal 26-192 [facility] Comment on above: Performed By: #### I VINCE #### [facility] [address] [place] [address] Dr. Chi Keith CK.MB [Mass/Vol] 0.71 ng/mL Normal <=3.60 [facility] Comment on above: Performed By: #### I VINCE #### [facility] [address] [place] [address] Dr. Chi Keith HSTROP 11.6 pg/mL Normal 4.0-51.3 [facility] Comment on above: Result Comment: CUT- OFF POINTS HAVE BEEN ESTABLISHED BASED ON THE FOURTH UNIVERSAL DEFINITIONS OF MYOCARDIAL INFARCTION. THE UPPER REFERENCE LIMIT (URL) OF TROPONIN, DEFINED THE 99TH PERCENTILE OF cTnI DISTRIBUTION IN A REFERENCE POPULATION, HAS BEEN CONFIRMED THE DECISION THRESHOLD FOR WI DIAGNOSIS. Performed By: #### I VINCE #### [facility] [address] [address] [address] Chi Keith FAUSTO 57 ng/mL Normal 9-82 [facility] Comment on above: Performed By: #### I VINCE #### [facility] [address] [address] [address] Chi Keith CBC AUTO DIFFon 04-09-2022 BASO # 0.0 103/ul Normal 0.0-0.1 [facility] Comment on above: Performed By: #### I VINCE #### [facility] [address] [place] [address] Dr. Chi Keith Basophils/100 WBC (Bld) 0.4 % Normal 0.2-2.0 [facility] Comment on above: Performed By: #### I VINCE #### [facility] [address] [place] [address] Dr. Chi Keith EO # 0.1 103/ul Normal 0.0-0.7 [facility] Comment on above: Performed By: #### I VINCE #### [facility] [address] [place] [address] Dr. Chi Keith Eosinophils/100 WBC (Bld) 0.7 % Critically low 0.9-7.0 [facility] Comment on above: Performed By: #### I VINCE #### [facility] [address] [place] [address] Dr. Chi Keith Erythrocyte distribution width (RBC) [Ratio] 14.5 % Normal 11.0-15.0 [facility] Comment on above: Performed By: #### I VINCE #### [facility] [address] [place] [address] Dr. Chi Keith Hematocrit (Bld) [Volume fraction] 42.1 % Normal 36.0-48.0 [facility] Comment on above: Performed By: #### I VINCE #### [facility] [address] [place] [address] Dr. Chi Keith Hemoglobin (Bld) [Mass/Vol] 13.5 g/dL Normal 12.0-16.0 [facility] Comment on above: Performed By: #### I VINCE #### [facility] [address] [place] [address] Dr. Chi Keith IG # 0.03 10e3/ul Normal 0.00-0.03 [facility] Comment on above: Performed By: #### I VINCE #### [facility] [address] [place] [address] Dr. Chi Keith IG % 0.3 % Normal 0.0-0.5 [facility] Comment on above: Performed By: #### I VINCE #### [facility] [address] [place] [address] Dr. Chi Keith LYMPH # 1.8 103/ul Normal 1.2-3.8 [facility] Comment on above: Performed By: #### I VINCE #### [facility] [address] [place] [address] Dr. Chi Keith Lymphocytes/100 WBC (Bld) 18.3 % Critically low 20.5-60.0 [facility] Comment on above: Performed By: #### I VINCE #### [facility] [address] [place] [address] Dr. Chi Keith MANUAL DIFF REQ NO Normal [facility] Comment on above: Performed By: #### I VINCE #### [facility] [address] [place] [address] Dr. Chi Keith MCH (RBC) [Entitic mass] 30.5 pg Normal 26.7-34.0 [facility] Comment on above: Performed By: #### I VINCE #### [facility] [address] [place] [address] Dr. Chi Keith MCHC (RBC) [Mass/Vol] 32.1 g/dL Normal 29.9-35.2 [facility] Comment on above: Performed By: #### I VINCE #### [facility] [address] [place] [address] Dr. Chi Keith MCV (RBC) [Entitic vol] 95.2 fL Normal 81.0-99.0 [facility] Comment on above: Performed By: #### I VINCE #### [facility] [address] [place] [address] Dr. Chi Keith MONO # 0.6 103/ul Normal 0.3-0.8 [facility] Comment on above: Performed By: #### I VINCE #### [facility] [address] [place] [address] Dr. Chi Keith Monocytes/100 WBC (Bld) 6.3 % Normal 1.7-12.0 [facility] Comment on above: Performed By: #### I VINCE #### [facility] [address] [place] [address] Dr. Chi Keith NEUT # 7.5 103/ul Critically high 1.4-6.5 [facility] Comment on above: Performed By: #### I VINCE #### [facility] [address] [place] [address] Dr. Chi Keith Neutrophils/100 WBC (Bld) 74.0 % Normal 43.0-75.0 [facility] Comment on above: Performed By: #### I VINCE #### [facility] [address] [place] [address] Dr. Chi Keith Platelet mean volume (Bld) [Entitic vol] 9.3 fL Critically low 9.5-13.5 [facility] Comment on above: Performed By: #### I VINCE #### [facility] [address] [place] [address] Dr. Chi Keith PLT 316 103/ul Normal 150-450 [facility] Comment on above: Performed By: #### I VINCE #### [facility] [address] [place] [address] Dr. Chi Keith RBC 4.42 106/ul Normal 4.20-5.40 [facility] Comment on above: Performed By: #### I VINCE #### [facility] [address] [place] [address] Dr. Chi Keith WBC 10.1 103/ul Normal 4.0-11.0 [facility] Comment on above: Performed By: #### I VINCE #### [facility] [address] [place] [address] FACIAL BONES WO [...] by: SUNIL THOMPSON Date: 2022-04-09 15:[address] [facility] [address] HEAD WO CONon 04-09-2022 CT [...] SUNIL THOMPSON Date: 2022-04-09 15:51 Normal [facility] ER URINE PROFILEon 2 Bilirubin Ql (U) MODERATE Abnormal NEGATIVE [facility] Comment on above: Performed By: #### I VINCE #### [facility] [address] [place] [address] Dr. Chi Keith Clarity (U) CLEAR Normal CLEAR [facility] Comment on above: Performed By: #### I VINCE #### [facility] [address] [place] [address] Dr. Chi Keith Color (U) DK. YELLOW Normal YELLOW [facility] Comment on above: Performed By: #### I VINCE #### [facility] [address] [place] [address] Dr. Chi BARRY A micrscopic examina tion will be performed if indicated. Normal [facility] Comment on above: Performed By: #### I VINCE #### [facility] [address] [place] [address] Dr. Chi Keith Glucose Ql (U) Negative Normal NEGATIVE [facility] Comment on above: Performed By: #### I VINCE #### [facility] [address] [place] [address] Dr. Chi Keith Hemoglobin Ql (U) TRACE-INTACT Abnormal NEGATIVE [facility] Comment on above: Performed By: #### I VINCE #### [facility] [address] [place] [address] Dr. Chi Keith Ketones Ql (U) 15 mg/dl Abnormal NEGATIVE [facility] Comment on above: Performed By: #### I VINCE #### [facility] [address] [place] [address] Dr. Chi Keith LEUKOCYTES Negative Normal NEGATIVE [facility] Comment on above: Performed By: #### I VINCE #### [facility] [address] [place] [address] Dr. Chi Keith Nitrite Ql (U) Negative Normal NEGATIVE [facility] Comment on above: Performed By: #### I VINCE #### [facility] [address] [place] [address] Dr. Chi Keith pH (U) 5.5 [pH] Normal 5-9 [facility] Comment on above: Performed By: #### I VINCE #### [facility] [address] [place] [address] Dr. Chi Keith Protein (U) [Mass/Vol] 30 mg/dL Abnormal NEGATIVE/ TRACE [facility] Comment on above: Performed By: #### I VINCE #### [facility] [address] [place] [address] Dr. Chi Keith SPEC GRAVITY >=1.030 Abnormal 1.005-<=1. 025 [facility] Comment on above: Performed By: #### I VINCE #### [facility] [address] [place] [address] Dr. Chi Keith UR MICRO IND INDICATED Normal [facility] Comment on above: Performed By: #### I VINCE #### [facility] [address] [place] [address] Dr. Chi Keith Urobilinogen Qn (U) 1.0 {Mani'U}/dL Normal 0.2 - 1. 0 [facility] Comment on above: Performed By: #### I VINCE #### [facility] [address] [place] [address] Dr. Chi Keith PROF 14(COMP METB)on 022 Albumin [Mass/Vol] 3.3 g/dL Critically low 3.4-5.0 [facility] Comment on above: Performed By: #### C MELISSA CMP, TSH #### [facility] [address] [place] [address] Dr. Chi Keith Albumin/Globulin [Mass ratio] 0.9 {ratio} Normal [facility] Comment on above: Performed By: #### C MELISSA CMP, TSH #### [facility] [address] [place] [address] Dr. Chi Keith ALP [Catalytic activity/Vol] 87 U/L Normal 46-116 [facility] Comment on above: Performed By: #### C MELISSA CMP, TSH #### [facility] [address] [address] [address] Chi Keith ALT [Catalytic activity/Vol] 34 U/L Normal 14-59 [facility] Comment on above: Performed By: #### C THERESE TORRES, TSH #### [facility] [address] [place] [address] Dr. Chi Keith Anion gap [Moles/Vol] 12.2 mmol/L Normal Th e [facility] Comment on above: Performed By: #### C MELISSA CMP, TSH #### [facility] [address] [place] [address] Dr. Chi Keith AST [Catalytic activity/Vol] 16 U/L Normal 15-37 [facility] Comment on above: Performed By: #### C THERESE TORRES, TSH #### [facility] [address] [place] [address] Dr. Chi Keith Bilirubin [Mass/Vol] 0.6 mg/dL Normal 0.2-1.0 [facility] Comment on above: Performed By: #### C MLEISSA CMP, TSH #### [facility] [address] [place] [address] Dr. Chi Keith Calcium [Mass/Vol] 9.8 mg/dL Normal 8.5-10.1 [facility] Comment on above: Performed By: #### C MELISSA CMP, TSH #### [facility] [address] [place] [address] Dr. Chi Keith Chloride [Moles/Vol] 106 mmol/L Normal 98-107 [facility] Comment on above: Performed By: #### C MADVictor Hugo, CMP, TSH #### [facility] [address] [place] [address] Dr. Cih Keith CO2 [Moles/Vol] 27.9 mmol/L Normal 21.0-32.0 [facility] Comment on above: Performed By: #### C MADVictor Hugo CMP, TSH #### [facility] [address] [place] [address] Dr. Chi Keith Creatinine [Mass/Vol] 1.13 mg/dL Critically high 0.55-1.02 [facility] Comment on above: Performed By: #### C MADM, CMP, TSH #### [facility] [address] [address] [address] Chi Keith EGFR-AF MAURITANIAN =60 Normal >=60 [facility] Comment on above: Performed By: #### C MADM, CMP, TSH #### [facility] [address] [address] [address] Chi Keith EGFR-NON AF MAURITANIAN 49 mL/min/1.73m2 Critically low >=60 [facility] Comment on above: Performed By: #### C MADM, CMP, TSH #### [facility] [address] [address] [address] Chi Keith Globulin (S) [Mass/Vol] 3.8 g/dL Normal [facility] Comment on above: Performed By: #### C MADM, CMP, TSH #### [facility] [address] [address] [address] Chi Keith Glucose [Mass/Vol] 115 mg/dL Critically high 74-106 [facility] Comment on above: Performed By: #### C MADM, CMP, TSH #### [facility] [address] [address] [address] Chi Keith Potassium [Moles/Vol] 4.1 mmol/L Normal 3.5-5.1 [facility] Comment on above: Performed By: #### C MADM, CMP, TSH #### [facility] [address] [address] [address] Chi Keith Protein [Mass/Vol] 7.1 g/dL Normal 6.4-8.2 [facility] Comment on above: Performed By: #### C MADM, CMP, TSH #### [facility] [address] [place] [address] Dr. Chi Keith Sodium [Moles/Vol] 142 mmol/L Normal 136-145 [facility] Comment on above: Performed By: #### C MADM, CMP, TSH #### [facility] [address] [address] [address] Chi Keith Urea nitrogen [Mass/Vol] 21.0 mg/dL Critically high 7.0-18.0 [facility] Comment on above: Performed By: #### C THERESE TORRES, TSH #### [facility] [address] [place] [address] Dr. Chi Keith Urea nitrogen/Creatinine [Mass ratio] 18.6 mg/mg Normal [facility] Comment on above: Performed By: #### C THERESE TORRES, TSH #### [facility] [address] [place] [address] Dr. Chi Keith PROTIMEon 04-09-2022 INR Coag (PPP) [Relative time] 0.97 {INR} Normal [facility] Comment on above: Performed By: #### I VINCE #### [facility] [address] [place] [address] Dr. Chi Keith INR GUIDELINES SEE BELOW Normal [facility] Comment on above: Result Comment: LISA RED INR: 2.0 - 3.0 CONDITIONS NOT LISTED BELOW 2.5 - 3.5 FOR PROSTHETIC HEART VALVE REPLACEMENT 2.5 - 3.5 RECURRENT THROMBOSIS Performed By: #### I VINCE #### [facility] [address] [place] [address] Dr. Chi Keith PT Coag (PPP) [Time] 10.5 s Normal 9.0-11.6 [facility] Comment on above: Performed By: #### I VINCE #### [facility] [address] [place] [address] Dr. Chi Keith PTTon 04-09-2022 aPTT Coag (Bld) [Time] 23.1 s Normal 22.3-36.2 [facility] Comment on above: Performed By: #### I VINCE #### [facility] [address] [place] [address] Dr. Chi Keith TSHon 04-09-2022 TSH 0.511 uIU/mL Normal 0.358-3.74 0 [facility] Comment on above: Performed By: #### C THERESE TORRES, TSH #### [facility] [address] [place] [address] Dr. Chi Keith URINE MICROSCOPIC ONLYon BACTERIA TRACE Abnormal NONE SEEN [facility] Comment on above: Performed By: #### I VINCE #### [facility] [address] [place] [address] Dr. Chi Keith Bacteria identified Cx Nom (U) NOT INDICATED Normal [facility] Comment on above: Performed By: #### I VINCE #### [facility] [address] [place] [address] Dr. Chi Keith CAST SEEN Abnormal NONE SEEN [facility] Comment on above: Performed By: #### I VINCE #### [facility] [address] [place] [address] Dr. Chi Keith Crystals LM Nom (Urine sed) NONE SEEN Normal NONE SEEN [facility] Comment on above: Performed By: #### I VINCE #### [facility] [address] [place] [address] Dr. Chi Keith Epithelial cells LM Ql (Urine sed) FEW Abnormal NONE SEEN /RARE [facility] Comment on above: Performed By: #### I VINCE #### [facility] [address] [place] [address] Dr. Chi Keith HYALINE CAST RARE Normal [facility] Comment on above: Performed By: #### I VINCE #### [facility] [address] [place] [address] Dr. Chi Keith MUCOUS SMALL Abnormal NONE SEEN [facility] Comment on above: Performed By: #### I VINCE #### [facility] [address] [place] [address] Dr. Chi Keith RBC 2-5 Abnormal 0-2 [facility] Comment on above: Performed By: #### I VINCE #### [facility] [address] [place] [address] Dr. Chi Keith WBC 0-2 Abnormal NONE SEEN [facility] Comment on above: Performed By: #### I VINCE #### [facility] [address] [place] [address] Dr. Chi Keith Cardiovascular Lab Reporton 05-11-2017 Cardiovascular Lab Report [facility] Patient Name: Melissa Dubose MR #: [id number] [place] [address] Physician: Justine Grimes M.D.Department of Service Date: 05/10/2017Medicine Birthdate: [birth year]Division of Room #: [facility] CardiovascularServicesFoundation [facility] donaldo [address], [place] [address]Qavxb Fax Cardiovascular Laboratory ReportINDICATION:Melsisa Dubose is a 56-year-old lady known to have coronary disease, statuspost bypass surgery in the past. She was evaluated in Cardiology Clinicbecause of recent episodes of syncope. She also described chest pain. Astress test showed no evidence of ischemia, but a low ejection fraction of46%. Because of that, she is referred for cardiac catheterization.PROCEDURE:1. Bilateral selective coronary angiography.2. Graft angiography.3. Limited right femoral angiography.METHODS:Procedur e was explained to the patient with risks and benefits. She signedinformed consent. She was brought to cathead worker in a fasting state. Theright groin area was prepped and draped in usual fashion. Usingmicropuncture technique, the right common femoral artery was accessed. Theinner cannula was advanced. Limited right femoral angiography wasperformed followed by upsizing to a 6-Cymraes x 11 cm sheath. Bilateralselective renal angiography was then performed using 6-Cymraes JL4 and [id number] catheters. The 6-Cymraes JR4 diagnostic catheter was used toselectively engage the saphenous venous graft to the OM and the radialgraft to the PDA. Angiography was performed. Catheter was exchanged to a6-Cymraes CYNTHIA catheter, which was used to selectively [...] 05/10/2017/01:01 P/Justine Grimes M.D.Date Trans: 05/11/2017 09:53 A/Charleen_JN:[id number]: Madison Mccormack M.D. [id number] [facility] Daryl Hammond [facility] [id number] Normal [facility] Vital Signs Date Time Vital Sign Value Performing Clinician Viviane headley 06-02-2024 13:56-0400 Diastolic blood pressure 78 mm[Hg] [facility] 06-02-2024 13:56-0400 Heart rate 56 /min Ashley Orzech [facility] 06-02-2024 13:56-0400 Respiratory rate 16 /min Ashley Orzech [facility] 06-02-2024 13:56-0400 Systolic blood pressure 126 mm[Hg] Ashley Orzech [facility] 11-25-2023 11:01-0400 Body temperature 97.7 [degF] MD Madison Mccormack Work Phone: [facility] 11-25-2023 11:01-0400 Diastolic blood pressure 65 mm[Hg] MD Madison Mccormack Work Phone: [facility] 11-25-2023 11:01-0400 Heart rate 90 /min MD Madison Mccormack Work Phone: [facility] 11-25-2023 11:01-0400 Respiratory rate 16 /min MD Madison Mccormack Work Phone: [facility] 11-25-2023 11:01-0400 SaO2% (BldA) [Mass fraction] 97 % MD Madison Mccormack Work Phone: [facility] 11-25-2023 11:01-0400 Systolic blood pressure 108 mm[Hg] MD Madison Mccormack Work Phone: [facility] 11-25-2023 06:00-0400 Body weight 103 kg MD Madison Mccormack Work Phone: [facility] 11-24-2023 20:00-0400 Inhaled oxygen flow rate 2 L/min MD Madison Mccormack Work Phone: [facility] 11-21-2023 14:58-0400 Body height 177.8 cm MD Madison Mccormack Work Phone: [facility] Encounters Encounter Date Encounter Type Care Provider Facility Start: 08-20-2024 [facility] :SANDRA Garcia Start: 06-02-2024 End: 06-02-2024 ambulatory Ashley X Orzech [place] [place]: 06-02-2024 End: 06-02-2024 Lab Drop off Ashley X Orzech [facility] Start: 06-02-2024 End: 06-02-2024 ambulatory Ashley X Orzech Facility:[facility] Start: 06-02-2024 End: 06-02-2024 Patient encounter procedure Ashley X Orzech [facility] Start: 05-01-2024 End: 05-01-2024 ambulatory [facility] Start: 04-01-2024 ambulatory Ashley Orzech Facility: [facility]DR[facility] Vivas Start: 02-19-2024 End: 02-19-2024 ambulatory [facility] Start: 01-17-2024 ambulatory [facility] Start: 01-17-2024 End: 01-17-2024 ambulatory [facility] Start: 12-27-2023 ambulatory [facility] Start: 12-11-2023 End: 12-11-2023 ambulatory TREVIN [facility] Start: 11-21-2023 End: 11-25-2023 Evaluation and management of inpatient Jaimie Mischler Facility:[facility] Start: 11-21-2023 Non-patient / Non-visit MD Umesh Mccormack Work Phone: [facility] Work Phone: Start: 11-21-2023 End: 11-25-2023 Evaluation and management of inpatient MD Madison Mccormack Work Phone: [facility] Work Phone: Start: 01-23-2023 End: 01-24-[address] MADISON MCCORMACK . Facility: Start: 08-13-2022 End: 08-13-[address] MADISON MCCORMACK . Facility: Start: 04-09-2022 End: 04-09-2022 ambulatory MYKE CANTU . Facility: Start: 05-10-2017 End: 05-11-2017 Ambulatory PROVIDER UNKNOWN Facility:[facility] Start: 05-07-2017 End: 05-08-2017 Ambulatory DEFAULT PHYSICIAN Facility:[facility] Procedures Date Procedure Procedure Detail Performing Clinician Start: 01-08-2024 Cardioversion Ashley Or alexis Start: 11-23-2023 Plain chest X-ray MD Gurrola Work Phone: Start: 11-22-2023 [facility] Angio w/grafts MD Madison Mccormack Work Phone: Start: 11-21-2023 Plain chest X-ray MD Gurrola Work Phone: Cardiac catheter (ph ysical object) Ashley Orzech Comment on above: Dr. Siddiqi 4 Cholecystectomy Ashley Orzec h Colonoscopy Ashley Orzech History of coronary artery bypass grafting S/P CABG (coronary artery bypass graft) MD Madison Mccormack Work Phone: History of coronary artery bypass grafting Ashley Orzech Hysterectomy Ashley Orzech Structure of vertebr al column (body structure) Ashley Orzech Plan of Treatment Date Care Activity Detail Author Start: 11-25-2023 [facility] Start: 11-21-2023 Hospital admission [facility] Start: 11-21-2023 Referral to [facility] Patient Education Atrial Fibrill ation (DC) Heart Failure, Adult (DC) Flu, Adult (DC) Going Home on Blood Thinners [facility] Work Phone: Patient referral [facility] Work Phone: Immunizations Immunization Date Immunization Notes Care Provider Fa jamilah 06-06-2023 influenza virus vacc ine, unspecified formulation Ashley Orzech [facility] 03-28-2022 SARS-CoV-2 mRNA (xujbiumyxay-cwsd-lprusv e) vaccine Ashley Orzech [facility] 06-16-2021 influenza virus vacc ine, unspecified formulation Ashley Orzech [facility] 06-16-2021 SARS-CoV-2 (COVID-19 ) mRNA BNT-162b2 vax Ashley Orzech [facility] 12-08-2020 SARS-CoV-2 (COVID-19 ) mRNA BNT-162b2 vax Ashley Orzech [facility] 11-17-2020 SARS-CoV-2 (COVID-19 ) mRNA BNT-162b2 vax Ashley Orzech [facility] 06-22-2020 influenza virus vacc ine, unspecified formulation Ashley Orzech [facility] 06-22-2020 pneumococcal polysaccharide vaccine, 23 valent Ashley Orzech [facility] 07-31-2019 influenza virus vacc ine, unspecified formulation Ashley Orzech [facility] 07-28-2018 influenza virus vacc ine, unspecified formulation Ashley Orzech [facility] 06-21-2017 influenza, unspecifi ed formulation Ashley OrHoseanna [facility] 05-08-2016 influenza virus vacc ine, unspecified formulation Ashley OrHoseanna [facility] 06-08-2015 influenza virus vacc ine, unspecified formulation [employer] OrHoseanna [facility] Payers Date Payer Category Payer Self-pay 2020 Medicare [id number] 1960 Unknown [id number] 1960 Unknown [id number] [id number] [id number] 1960 Unknown [id number] 2.16.84 [id number] 1960 Unknown [id number] 2.16.8 [id number] 1960 Unknown [id number] 2.16.8 [id number] 1960 Unknown [id number] 2.16.8 [id number] 1957 Medicare [id number] Medicare [id number] Unknown Unknown [facility] [id number] Unknown [id number] [id number] Social History Date Type Detail Facility Start: 11-22-2023 End: 06-02-2024 Tobacco smoking status NHIS Ex-smoker (finding) [facility] Start: 1960 Sex Assigned At Female [facility] Tobacco smoking status Never [facility] Sex Assigned At Female [facility] Goals Date Patient Goal Desired Activity /State Functional Status Date Assessment Result Facility 06-02-2024 Functional Status N/A [facility] Milly 11-25-2023 Functional status Patient at Baseline [facility] Work Phone: Mental Status Date Assessment Result Facility 11-25-2023 Cognitive function Cognitive Sta tus Patient at Baseline [facility] Work Phone: Clinical Notes 11-21-2023 to 06-02-2024 Note Date & Type Note Facility 06-02-2024 Hospital Discharge instructions Patient Education 06/02/2024 14:44:33 Hematuria, Adult Hematuria, Adult Hematuria is blood in the urine. Blood may be visible in the urine, or it may be identified with a test. This condition can be caused by infections of the bladder, urethra, kidney, or prostate. Other possible causes include: Kidney stones. Cancer of the urinary tract. Too much calcium in the urine. Conditions that are passed from parent to child (inherited conditions). Exercise that requires a lot of energy. Infections can usually be treated with medicine, and a kidney stone usually will pass through your urine. If neither of these is the cause of your hematuria, more tests may be needed to identify the cause of your symptoms. It is very important to tell your health care provider about any blood in your urine, even if it is painless or the blood stops without treatment. Blood in the urine, when it happens and then stops and then happens again, can be a symptom of a very serious condition, including cancer. There is no pain in the initial stages of many urinary cancers. Follow these instructions at home: Medicines Take ndzo-baz-kjnjvqn and prescription medicines only as told by your health care provider. If you were prescribed an antibiotic medicine, take it as told by your health care provider. Do not stop taking the antibiotic even if you start to feel better. Eating and drinking Drink enough fluid to keep your urine pale yellow. It is recommended that you drink 3 4 quarts (2.8 3.8 L) a day. If you have been diagnosed with an infection, drinking cranberry juice in addition to large amounts of water is recommended. Avoid caffeine, tea, and carbonated beverages. These tend to irritate the bladder. Avoid alcohol because it may irritate the prostate (in males). General instructions If you have been diagnosed with a kidney stone, follow your health care provider's instructions about straining your urine to catch the stone. Empty your bladder often. Avoid holding urine for long periods of time. If you are female: ?After a bowel movement, wipe from front to back and use each piece of toilet paper only once. ?Empty your bladder before and after sex. Pay attention to any changes in your symptoms. Tell your health care provider about any changes or any new symptoms. It is up to you to get the results of any tests. Ask your health care provider, or the department that is doing the test, when your results will be ready. Keep all follow-up visits. This is important. Contact a health care provider if: You develop back pain. You have a fever or chills. You have nausea or vomiting. Your symptoms do not improve after 3 days. Your symptoms get worse. Get help right away if: You develop severe vomiting and are unable to take medicine without vomiting. You develop severe pain in your back or abdomen even though you are taking medicine. You pass a large amount of blood in your urine. You pass blood clots in your urine. You feel very weak or like you might faint. You faint. Summary Hematuria is blood in the urine. It has many possible causes. It is very important that you tell your health care provider about any blood in your urine, even if it is painless or the blood stops without treatment. Take cwle-zjj-fzbvhdp and prescription medicines only as told by your health care provider. Drink enough fluid to keep your urine pale yellow. This information is not intended to replace advice given to you by your health care provider. Make sure you discuss any questions you have with your health care provider. Document Revised: 04/26/2021 Document Reviewed: 04/26/2021 [employer] Patient Education 2023 [employer]. 06/02/2024 14:44:31 Dietary Guidelines to Help Prevent Kidney Stones Dietary Guidelines to Help Prevent Kidney Stones Kidney stones are deposits of minerals and salts that form inside your kidneys. Your risk of developing kidney stones may be greater depending on your diet, your lifestyle, the medicines you take, and whether you have certain medical conditions. Most people can lower their risks of developing kidney stones by following these dietary guidelines. Your dietitian may give you more specific instructions depending on your overall health and the type of kidney stones you tend to develop. What are tips for following this plan? Reading food labels Choose foods with no salt added or low-salt labels. Limit your salt (sodium) intake to less than 1,500 mg a day. Choose foods with calcium for each meal and snack. Try to eat about 300 mg of calcium at each meal. Foods that contain 200 500 mg of calcium a serving include: ?8 oz (237 mL) of milk, jixxfdx-golhgzznvowi-ekvti milk, and calcium-fortifiedfruit juice. Calcium-fortified means that calcium has been added to these drinks. ?8 oz (237 mL) of kefir, yogurt, and soy yogurt. ?4 oz (114 g) of tofu. ?1 oz (28 g) of cheese. ?1 cup (150 g) of dried figs. ?1 cup (91 g) of cooked broccoli. ?One 3 oz (85 g) can of sardines or mackerel. Most people need 1,000 1,500 mg of calcium a day. Talk to your dietitian about how much calcium is recommended for you. Shopping Buy plenty of fresh fruits and vegetables. Most people do not need to avoid fruits and vegetables, even if these foods contain nutrients that may contribute to kidney stones. When shopping for convenience foods, choose: ?Whole pieces of fruit. ?Pre-made salads with dressing on the side. ?Low-fat fruit and yogurt smoothies. Avoid buying frozen meals or prepared deli foods. These can be high in sodium. Look for foods with live cultures, such as yogurt and kefir. Choose high-fiber grains, such as whole-wheat breads, oat bran, and wheat cereals. Cooking Do not add salt to food when cooking. Place a salt shaker on the table and allow each person to add their own salt to taste. Use vegetable protein, such as beans, textured vegetable protein (TVP), or tofu, instead of meat in pasta, casseroles, and soups. Meal planning Eat less salt, if told by your dietitian. To do this: ?Avoid eating processed or pre-made food. ?Avoid eating fast food. Eat less animal protein, including cheese, meat, poultry, or fish, if told by your dietitian. To do this: ?Limit the number of times you have meat, poultry, fish, or cheese each week. Eat a diet free of meat at least 2 days a week. ?Eat only one serving each day of meat, poultry, fish, or seafood. ?When you prepare animal proteins, cut pieces into small portion sizes. For most meat and fish, one serving is about the size of the palm of your hand. Eat at least five servings of fresh fruits and vegetables each day. To do this: ?Keep fruits and vegetables on hand for snacks. ?Eat one piece of fruit or a handful of berries with breakfast. ?Have a salad and fruit at lunch. ?Have two kinds of vegetables at dinner. You may be told to limit foods that are high in a substance called oxalate. These include: ?Spinach (cooked), rhubarb, beets, sweet potatoes, and Emir[place] chard. ?Peanuts. ?Potato chips, tristanian fries, and baked potatoes with skin on. ?Nuts and nut products. ?Chocolate. If you regularly take a diuretic medicine, make sure to eat at least 1 or 2 servings of fruits or vegetables that are high in potassium each day. These include: ?Avocado. ?Banana. ?Hettinger, prune, carrot, or tomato juice. ?Baked potato. ?Cabbage. ?Beans and split peas. Lifestyle Drink enough fluid to keep your urine pale yellow. This is the most important thing you can do. Spread your fluid intake throughout the day. If you drink alcohol: ?Limit how much you have to: ?0 1 drink a day for women who are not . ?0 2 drinks a day for men. ?Know how much alcohol is in your drink. In the [place] one drink equals one 12 oz bottle of beer (355 mL), one 5 oz glass of wine (148 mL), or one 1 oz glass of hard liquor (44 mL). Lose weight if told by your health care provider. Work with your dietitian to find an eating plan and weight loss strategies that work best for you. General information Talk to your health care provider and dietitian about taking daily supplements. Depending on your health and the cause of your kidney stones, you may be told: ?Do not take high-dose supplements of vitamin C (1,000 mg a day or more). ?To take a calcium supplement. ?To take a daily probiotic supplement. ?To take other supplements such as magnesium, fish oil, or vitamin B6. Take bndr-luh-rjsrotm and prescription medicines only as told by your health care provider. These include supplements. What foods should I limit? Limit your intake of the following foods, or eat them as told by your dietitian. Vegetables Spinach. Rhubarb. Beets. Canned vegetables. Pickles. Olives. Baked potatoes with skin. Grains Wheat bran. Baked goods. Salted crackers. Cereals high in sugar. Meats and other proteins Nuts. Nut butters. Large portions of meat, poultry, or fish. Salted, precooked, or cured meats, such as sausages, meat loaves, and hot dogs. Dairy Cheeses. Beverages Regular soft drinks. Regular vegetable juice. Seasonings and condiments Seasoning blends with salt. Salad dressings. Soy sauce. Ketchup. Barbecue sauce. Other foods Canned soups. Canned pasta sauce. Casseroles. Pizza. Lasagna. Frozen meals. Potato chips. Cymraes fries. The items listed above may not be a complete list of foods and beverages you should limit. Contact a dietitian for more information. What foods should I avoid? Talk to your dietitian about specific foods you should avoid based on the type of kidney stones you have and your overall health. Fruits Grapefruit. The item listed above may not be a complete list of foods and beverages you should avoid. Contact a dietitian for more information. Summary Kidney stones are deposits of minerals and salts that form inside your kidneys. You can lower your risk of kidney stones by making changes to your diet. The most important thing you can do is drink enough fluid. Drink enough fluid to keep your urine pale yellow. Talk to your dietitian about how much calcium you should have each day, and eat less salt and animal protein as told by your dietitian. This information is not intended to replace advice given to you by your health care provider. Make sure you discuss any questions you have with your health care provider. Document Revised: 12/06/2022 Document Reviewed: 12/06/2022 [employer] Patient Education 2023 [employer]. Follow Up Care 04/30/2024 14:04:54 With:SHANNAN HO, Benjy P, URL Address: [facility] [address] [place], [place] [id number]- When: Unknown Comments:cysto [facility] 06-02-2024 Note Patient Education Nephrology Dietary Guidelines to Help Prevent Kidney Stones Kidney stones are deposits of minerals and salts that form inside your kidneys. Your risk of developing kidney stones may be greater depending on your diet, your lifestyle, the medicines you take, and whether you have certain medical conditions. Most people can lower their risks of developing kidney stones by following these dietary guidelines. Your dietitian may give you more specific instructions depending on your overall health and the type of kidney stones you tend to develop. What are tips for following this plan? Reading food labels ? Choose foods with no salt added or low-salt labels. Limit your salt (sodium) intake to less than 1,500 mg a day. ? Choose foods with calcium for each meal and snack. Try to eat about 300 mg of calcium at each meal. Foods that contain 200?500 mg of calcium a serving include: ? 8 oz (237 mL) of milk, zwlkvcy-ymtgxewcnmfo-euslw milk, and calcium-fortifiedfruit juice. Calcium-fortified means that calcium has been added to these drinks. ? 8 oz (237 mL) of kefir, yogurt, and soy yogurt. ? 4 oz (114 g) of tofu. ? 1 oz (28 g) of cheese. ? 1 cup (150 g) of dried figs. ? 1 cup (91 g) of cooked broccoli. ? One 3 oz (85 g) can of sardines or mackerel. Most people need 1,000?1,500 mg of calcium a day. Talk to your dietitian about how much calcium is recommended for you. Shopping ? Buy plenty of fresh fruits and vegetables. Most people do not need to avoid fruits and vegetables, even if these foods contain nutrients that may contribute to kidney stones. ? When shopping for convenience foods, choose: ? Whole pieces of fruit. ? Pre-made salads with dressing on the side. ? Low-fat fruit and yogurt smoothies. ? Avoid buying frozen meals or prepared deli foods. These can be high in sodium. ? Look for foods with live cultures, such as yogurt and kefir. ? Choose high-fiber grains, such as whole-wheat breads, oat bran, and wheat cereals. Cooking ? Do not add salt to food when cooking. Place a salt shaker on the table and allow each person to add their own salt to taste. ? Use vegetable protein, such as beans, textured vegetable protein (TVP), or tofu, instead of meat in pasta, casseroles, and soups. Meal planning ? Eat less salt, if told by your dietitian. To do this: ? Avoid eating processed or pre-made food. ? Avoid eating fast food. ? Eat less animal protein, including cheese, meat, poultry, or fish, if told by your dietitian. To do this: ? Limit the number of times you have meat, poultry, fish, or cheese each week. Eat a diet free of meat at least 2 days a week. ? Eat only one serving each day of meat, poultry, fish, or seafood. ? When you prepare animal proteins, cut pieces into small portion sizes. For most meat and fish, one serving is about the size of the palm of your hand. ? Eat at least five servings of fresh fruits and vegetables each day. To do this: ? Keep fruits and vegetables on hand for snacks. ? Eat one piece of fruit or a handful of berries with breakfast. ? Have a salad and fruit at lunch. ? Have two kinds of vegetables at dinner. ? You may be told to limit foods that are high in a substance called oxalate. These include: ? Spinach (cooked), rhubarb, beets, sweet potatoes, and Emirati chard. ? Peanuts. ? Potato chips, tristanian fries, and baked potatoes with skin on. ? Nuts and nut products. ? Chocolate. ? If you regularly take a diuretic medicine, make sure to eat at least 1 or 2 servings of fruits or vegetables that are high in potassium each day. These include: ? Avocado. ? Banana. ? Hettinger, prune, carrot, or tomato juice. ? Baked potato. ? Cabbage. ? Beans and split peas. Lifestyle ? Drink enough fluid to keep your urine pale yellow. This is the most important thing you can do. Spread your fluid intake throughout the day. ? If you drink alcohol: ? Limit how much you have to: ? 0?1 drink a day for women who are not . ? 0?2 drinks a day for men. ? Know how much alcohol is in your drink. In the [place] one drink equals one 12 oz bottle of beer (355 mL), one 5 oz glass of wine (148 mL), or one 1? oz glass of hard liquor (44 mL). ? Lose weight if told by your health care provider. Work with your dietitian to find an eating plan and weight loss strategies that work best for you. General information ? Talk to your health care provider and dietitian about taking daily supplements. Depending on your health and the cause of your kidney stones, you may be told: ? Do not take high-dose supplements of vitamin C (1,000 mg a day or more). ? To take a calcium supplement. ? To take a daily probiotic supplement. ? To take other supplements such as magnesium, fish oil, or vitamin B6. ? Take wqyv-gmt-lhbzmaw and prescription medicines only as told by your health care provider. These include suppleme (more content not included)... [facility] 06-02-2024 Evaluation + Plan note Diagnostic Tests PendingUrine Cytology ([facility]) 06/02/24 [facility] 05-01-2024 Note [place] Cardiology - [facility] Subjective Melissa Dubose is a 63 y.o. year old female patient being seen for a two month follow up with a echo done last week and labs done today. Pt has persistent Afib, cardiomyopathy. Pt did not bring a med list or could not name them. Patient Active Problem List Diagnosis Coronary arteriosclerosis Edema of lower extremity Hypertensive disorder Persistent atrial fibrillation (CMS/HCC) Acute hypoxic respiratory failure (CMS/HCC) Chest pain Diabetes (CMS/HCC) Headache HFrEF (heart failure with reduced ejection fraction) (CMS/HCC) Influenza A Myocardial injury NSTEMI (non-ST elevated myocardial infarction) ([facility]) S/P CABG (coronary artery bypass graft) Shortness of breath History of cardioversion Cardiomyopathy (CMS/HCC) Hyperlipidemia Abnormal result of cardiovascular function study, unspecified Family History Problem Relation Name Age of [...] ventricular response. She underwent cardiac catheterization at [facility] which showed patent bypass grafts. She was started on GDMT for heart failure as well as anticoagulation therapy with Eliquis. She then developed lower GI bleeding and possible colitis. She also developed UTI. Anticoagulation therapy was interrupted but then resumed. She was most recently evaluated in our office on 12/11/2023 and initial adjustment of guideline directed medical therapy was initiated. I saw her on 12/27/2023. Due to persistent atrial fibrillation and acute systolic heart failure and moderate to severe mitral regurgitation on echocardiography I proceeded with MALGORZATA guided cardioversion which she underwent on 01/17/2024 successfully. She reverted to sinus rhythm. Her cardiac catheterization November 22, 2023 showed patent bypass grafts. Today she is seen in follow-up. She has been having itching likely related to Jardiance. This is bothering her. Otherwise she reports that she has significantly improved in terms of symptoms of shortness of breath and leg edema. She has no chest pain. No palpitations. No dizziness or lightheadedness. Follow-up echocardiogram showed ejection fraction improved to 25-30% but poor endocardial border definition precluded accurate measurement of ejection fraction and echo contrast was recommended. Review of Systems Cardiovascular: Positive for dyspnea on exertion. Negative for irregular heartbeat, leg swelling and palpitations. All other systems reviewed and are negative. Objective Visit Vitals BP 108/80 (BP Location: Left arm, Patient Position: Sitting) Pulse 52 Ht 1.778 m (5' 10 ) Wt 105 kg (232 lb) SpO2 94% BMI 33.29 kg/m??? OB Status Postmenopausal Smoking Status Former BSA 2.28 m??? Physical Exam Constitutional: Appearance: She is well-developed. She is obese. She is not ill-appearing. HENT: Head: Normocephalic and atraumatic. Nose: Nose normal. Eyes: General: No scleral icterus. Pupils: Pupils are equal, round, and reactive to light. Neck: Thyroid: No thyromegaly. Vascular: No JVD. Cardiovascular: Rate and Rhythm: Regular rhythm. Bradycardia present. Pulses: Radial pulses are 0 on the [...] Judgment: Judgment normal. Allergies Allergies Allergen Reactions Oxycodone-Gilbert (more content not included)... [facility] 02-19-2024 Note [place] [facility] Note Reason for cardiology [...] ventricular response. She underwent cardiac catheterization at [facility] which showed patent bypass grafts. She was [...] Global left v (more content not included)... [facility] 01-17-2024 Note Attestation signed by Ria Schneider MD at [...] be an additional personal documentation from me. Cardiology DC Cardioversion Procedure Note Date: 01/17/24 [...] No hemodynamic complications noted. Jocelin Barajas MD Wood Molder - PGY5 [facility] 12-27-2023 Note [place] Cardiology - [facility] Fili Dubose is a 63 y.o. year old [...] ventricular response. She underwent cardiac catheterization at [facility] which showed patent bypass grafts. She was [...] T wave abn (more content not included)... [facility] 12-11-2023 Note Cardiovascular Medic [facility] SUBJECTIVE Chief Complaint Patient presents with [...] a.fib with RVR -Tx to [facility] -> cardiac cath showed grafts were widely [...] BP was dropping while she was admitted. --- Prior HPI per Dr. Grimes: Melissa Dubose is a 62 y.o. year old female past medical history of coronary artery disease status post 3vCABG (patent grafts on angiography in 2017), hypertension, hyperlipidemia, and type 2 diabetes mellitus seen in follow-up. Visit of 12/25/2017: Most recently she was admitted to [facility] with uncontrolled BP and chest pain [...] on exertion and (more content not included)... [facility] 11-25-2023 Discharge summary Note Date/Time November 25, 2023 1:11pm [facility] [address] [place] [address] Discharge Summary Signed Patient: Melissa Dubose MR#: [id number] : 1960 Acct:[id number] Age/Sex: 63 / F Adm Date: 4 Loc: Room: [address] [place] [address]: Johnny Bernal MD Copies to: [...] who presented to the emergency department at [place] [facility] with chest pain, shortness of breath, [...] will befollowed by her PCP and her brattice builder. Time Spent with Patient Time spent providing/coordinating [...] Low-Cholesterol Additional Instructions: DISCHARGE INSTRUCTIONS FOR CARDIAC IMPLEMENTATION PROJECT MANAGER PROCEDURE: Heart Cath The following instructions have [...] cold, numb, blue or white, call the brattice builder immediately. 4. ACTIVITY: You are advised to [...] bottle, follow the instructions on the bottle. [facility] is not responsible for incorrect prescription [...] tablet 1 tab PO Q12HR Follow Up: [facility] [Provider Group] - 12/11/23 11:00 [...] needed.) Documented By: Johnny Bernal MD 11/25/23 1309 Signed By: <Electronically signed by Johnny Bernal MD> 11/25/23 1610 [facility] Work Phone: 1(553) 314-248103-17-2024 Progress note Author Winter Norris [facility] November 24, 2023 10:00am Note Date/Time November 24, 2023 9:5 7am [facility] [address] [place] [address] Hospitalist Progress Note Signed Patient: Melissa Dubsoe MR#: [id number] : 1960 Acct:[id number] Age/Sex: 63 / F Adm Date: 4 Loc: Room: [address] [place] [address] Type: ADM IN Attending Dr: Winter Norris [...] 11/21/23 09:00 11/24/23 08:58 Aspirin 81 Mg Tablet.Dr PO 11/20/24 08:59 [...] 86% on room air upon arrival to [facility] emergency room, 4 L nasal cannula applied [...] PT/OT. Documented By: Winter Norris MD 11/24/23 9450 Signed By: <Electronically signed by Winter Norris MD> 11/24/23 1000 [facility] Work Phone: 1(882) 691-513203-16-2024 Progress note Author Justine Kristyanantolivia [facility] November 23, 2023 1:38pm Note Date/Time November 23, 2023 1:2 9pm [facility] [address] [place], [place] [id number] Cardiology Progress Note Signed Patient: Melissa Dubose MR#: [id number] : 1960 Acct:[id number] Age/Sex: 63 / F Adm Date: 4 Loc: 4 Room: [address] [place] [address] Type: ADM IN Attending Dr: Winter Norris [...] % (Auto) 72.7 Lymph % (Auto) 17.7 [place] % (Auto) 9.5 Eos % (Auto) 0.0 Baso % (Auto) 0.1 Nucleat RBC Rel Count 0.1 Neut # (Auto) 7.0 Lymph # (Auto) 1.7 [place] # (Auto) 0.9 H Eos # (Auto) [...] MPV Neut % (Auto) Lymph % (Auto) [place] % (Auto) Eos % (Auto) Baso % (Auto) Nucleat RBC Rel Count Neut # (Auto) Lymph # (Auto) [place] # (Auto) Eos # (Auto) Baso # [...] bypass graft (4) Coronary artery disease involving [place] coronary artery of [place] heart without angina pectoris: Code(s): I25.10 - Atherosclerotic heart disease of [place] coronary artery without angina pectoris (5) Myocardial injury: Code(s): I5A - Non-ischemic myocardial injury (non-traumatic) Plan # Admitted for cough and SOB 2/2 Influenza A infection # Mild acute HF in setting of HFrEF due to dilated ischemic cardiomyopathy - NYHA II, ACC C. # Moderate to severe MR # Paroxysmal nonvalvular Atrial fibrillation - Rate controlled. [id number] = 5. # Non-ACS troponin elevation due to myocardial injury - Secondary to influenza and mild acute heart failure. # CAD s/p 3v CABG (done ~2013) - No angina. [facility] this admission shows patent grafts. # Other: T2DM, HTN. Echo 11/21/23 - EF 25%, severe LV dilation, severely dilated LA, moderately dilated RA, moderate to severe MR, mild TR, RVSP 60 mmHg consistent with severe pulmonary hypertension, moderately dilated IVC, PFO by color Doppler. C 11/22/23 - Severe [place] coronary artery disease with patent grafts BALLESTEROS [...] up with her primarycardiologist Dr. Dukes at [facility] in 1-2 weeks. Documented By: Justine Jacobo MD 11/07 03/02 1327 Signed By: <Electronically signed by Justine Jacobo MD> 11/23/23 4444 [facility] Work Phone: 1(138) 652-613603-16-2024 Progress note Author Winter Norris [facility] November 23, 2023 10:04am Note Date/Time November 23, 2023 9:5 4am [facility] [address] [place] [address] Hospitalist Progress Note Signed Patient: Melissa Dubose MR#: [id number] : 1960 Acct:[id number] Age/Sex: 63 / F Adm Date: 4 Loc: 4 Room: [id number] Type: ADM IN Attending Dr: Winter Norris [...] 40 mg 11/23/23 09:00 Pantoprazole 40 Mg Tablet.Dr PO 11/22/24 08:59 DAILY FUNMI Potassium Chloride [...] 86% on room air upon arrival to [facility] emergency room, 4 L nasal cannula applied [...] Hematuria -Resolved. Documented By: Winter Norris MD 11/23/23 0952 Signed By: <Electronically signed by Winter Norris MD> 11/23/23 1003 [facility] Work Phone: 1(979) 314-382403-15-2024 Progress note Author Jayne Vallecillo [facility] November 22, 2023 3:26pm Note Date/Time November 22, 2023 3:1 5pm [facility] [address] [place] [address] Cardiology Progress Note Signed Patient: Melissa Dubose MR#: [id number] : 1960 Acct:[id number] Age/Sex: 63 / F Adm Date: 4 Loc: Room: [address] [place] [address] Type: ADM IN Attending Dr: Winter Norris MD Copies to: ~ Date of Service: 11/22/2023 Subjective Interval history: - No acute events overnight. Continues to have mild dyspnea and orthopnea. - C completed today by Dr Siddiqi. Exam Physical [...] MPV Neut % (Auto) Lymph % (Auto) [place] % (Auto) Eos % (Auto) Baso % (Auto) Nucleat RBC Rel Count Neut # (Auto) Lymph # (Auto) [place] # (Auto) Eos # (Auto) Baso # (Auto) PT INR APTT 152.4 H* 47.2 H PHA Creatinine Clear Sodium Potassium Chloride Carbon Dioxide Anion Gap BUN Creatinine Est GFR (CKD-EPI) POC Glucose 345 POC Glucose Comment Urine Color Urine Appearance Urine pH Ur Specific Orange Urine Protein Urine Glucose (UA) Urine Ketones Urine Occult Blood Urine Nitrite Urine Bilirubin Urine Urobilinogen Ur Leukocyte Esterase Urine RBC Urine WBC Ur Squamous Epith Cells Urine Bacteria Hyaline Casts 11/21/23 11/21/23 11/21/23 18:15 20:45 20:45 Corrected WBC Uncorrected WBC Count RBC Hgb Hct MCV MCH MCHC RDW Plt Count MPV Neut % (Auto) Lymph % (Auto) [place] % (Auto) Eos % (Auto) Baso % (Auto) Nucleat RBC Rel Count Neut # (Auto) Lymph # (Auto) [place] # (Auto) Eos # (Auto) Baso # (Auto) PT INR APTT PHA Creatinine Clear Sodium Potassium Chloride Carbon Dioxide Anion Gap BUN Creatinine Est GFR (CKD-EPI) POC Glucose 405 H* POC Glucose Comment Cleaned meter Urine Color Yellow Urine Appearance Clear Urine pH 5.5 Ur Specific Orange 1.012 Urine Protein Negative Urine Glucose (UA) [...] % (Auto) 81.3 Lymph % (Auto) 10.0 [place] % (Auto) 8.6 Eos % (Auto) 0.0 Baso % (Auto) 0.1 Nucleat RBC Rel Count 0.1 Neut # (Auto) 5.3 Lymph # (Auto) 0.6 L [place] # (Auto) 0.6 Eos # (Auto) 0.0 Baso # (Auto) 0.0 PT 14.0 H INR 1.2 APTT 27.6 PHA Creatinine Clear 68.56 Sodium 138 Potassium 4.7 Chloride 103 Carbon Dioxide 28.3 Anion Gap 11.4 BUN 24 Creatinine 1.15 Est GFR (CKD-EPI) 54.198 POC Glucose 354 POC Glucose Comment Will repeat test Urine Color Urine Appearance Urine pH Ur Specific Orange Urine Protein Urine Glucose (UA) Urine Ketones Urine Occult Blood Urine Nitrite Urine Bilirubin Urine Urobilinogen Ur Leukocyte Esterase Urine RBC Urine WBC Ur Squamous Epith Cells Urine Bacteria Hyaline Casts 11/22/23 11:31 Corrected WBC Uncorrected WBC Count RBC Hgb Hct MCV MCH MCHC RDW Plt Count MPV Neut % (Auto) Lymph % (Auto) [place] % (Auto) Eos % (Auto) Baso % (Auto) Nucleat RBC Rel Count Neut # (Auto) Lymph # (Auto) [place] # (Auto) Eos # (Auto) Baso # (Auto) PT INR APTT PHA Creatinine Clear Sodium Potassium Chloride Carbon Dioxide Anion Gap BUN Creatinine Est GFR (CKD-EPI) POC Glucose 181 POC Glucose Comment Urine Color Urine Appearance Urine pH Ur Specific Orange Urine Protein Urine Glucose (UA) Urine Ketones [...] bypass graft (4) Coronary artery disease involving [place] coronary artery of [place] heart without angina pectoris: Code(s): I25.10 - Atherosclerotic heart disease of [place] coronary artery without angina pectoris (5) Myocardial injury: Code(s): I5A - Non-ischemic myocardial injury (non-traumatic) Plan # Mild acute HF in setting of newly diagnosed HFrEF due to undefined cardiomyopathy # Dilated ischemic cardiomyopathy EF 25% # Moderate to severe MR # Atrial fibrillation [id number] = 5 # Influenza A infection # [...] Recommendations: - LHC completed today shows severe [place] coronary artery disease with patent grafts BALLESTEROS to LAD; SVG to OM1-OM2 and SVG to RCA. - Continue diuresis with Lasix 40mg IV BID. LVEDP elevated at 20mmHg. - Afib is rate controlled. Continue Eliquis 5mg BID. - GDMT: Metoprolol, Entresto Aldactone. Start Jardiance tomorrow if renal function stable. - Will follow. Documented By: Jayne Vallecillo MD 11/22/23 4864 Signed By: <Electronically signed by Jayne Vallecillo MD> 11/22/23 5971 [facility] Work Phone: 1(979) 102-847903-15-2024 Consult note Author W Devang [facility] November 22, 2023 2:25pm Note Date/Time November 22, 2023 2:2 5pm [facility] [address] [place] [address] Cardiology Consult Note Signed Patient: Melissa Dubose MR#: [id number] : 1960 Acct:[id number] Age/Sex: 63 / F Adm Date: 4 Loc: Room: [address] [place] [address] Type: ADM IN Attending Dr: Winter Norris MD Copies to: MD Winter West MD W Gustabo Siddiqi, DO~ Cardiology HPI History of Present Illness [...] Patient had bypass surgery in 2013 at [facility], routinely follows with Dr. Grimes. She [...] in LV function specifically evaluate graft and [place] and coronary anatomy for treatable targets. Review of Systems Review of Systems All other systems reviewed & are negative unless noted below or in HPI Constitutional Constitutional: Reports as per HPI, Reports fatigue and Reports weakness Cardiovascular Cardiovascular: Reports chest pain at rest, Reports dyspnea and Reports orthopnea Respiratory Respiratory: Reports as per HPI [facility] Medical History Myocardial infarction Hypertension Diabetes Surgical History History of back surgery Hx of CABG 3 vessel at [facility] Family History Mother Diabetes Paternal Grandfather [...] Lymph # (Auto) 0.6 L (1.00-4.8) x10E3/uL [place] # (Auto) 0.6 (0.0-0.8) x10E3/uL Eos # [...] bypass graft (4) Coronary artery disease involving [place] coronary artery of [place] heart without angina pectoris: Code(s): I25.10 - Atherosclerotic heart disease of [place] coronary artery without angina pectoris (5) Myocardial injury: Code(s): I5A - Non-ischemic myocardial injury (non-traumatic) Plan Proceed with left heart catheterization plus minus revascularization Documented By: Hernan Siddiqi DO 11/22/23 141 Signed By: <Electronically signed by Hernan Siddiqi DO> 11/22/23 142 [facility] Work Phone: 1(576) 777-283603-15-2024 [facility] Progress note Author Winter Norris [facility] November 22, 2023 10:05am Note Date/Time November 22, 2023 10: 01am [facility] [address] [place] [address] Hospitalist Progress Note Signed Patient: Melissa Dubose MR#: [id number] : 1960 Acct:[id number] Age/Sex: 63 / F Adm Date: 4 Loc: Room: [address] [place] [address] Type: ADM IN Attending Dr: Winter Norris [...] Syringe IV-PUSH 11/20/24 05:59 Not Given QSHIFT [facility] Sodium Chloride 0 ml 11/21/23 15:48 Sodium [...] 86% on room air upon arrival to [facility] emergency room, 4 L nasal cannula applied [...] <Electronically signed by Winter Norris MD> 11/22/23 1005 [facility] Work Phone: 1(517) 632-888703-14-2024 Consult note Author Justine Jacobo [facility] November 21, 2023 4:39pm Note Date/Time November 21, 2023 3:0 2pm [facility] [address] [place] [address] Cardiology Consult Note Signed Patient: Melissa Dubose MR#: [id number] : 1960 Acct:[id number] Age/Sex: 63 / F Adm Date: 4 Loc: Room: [address] [place] [address] Type: ADM IN Attending Dr: Winter Norris MD Copies to: MD Justine West MD Mazhar Rahman, MD~ Cardiology HPI History of Present Illness Consult Date: 11/21/23 HPI: Ms. Dubose is a 63 year old female with the PMH below ike presented to the [place] ER for chest pain, SOB, cough and [...] easy bleeding, ecchymosis. Skin: Denies rashes, pruritus. [facility] Medical History Myocardial infarction Hypertension Diabetes Surgical History History of back surgery Hx of CABG 3 vessel at [facility] Family History Mother Diabetes Paternal Grandfather [...] Lymph # (Auto) 0.3 L (1.00-4.8) x10E3/uL [place] # (Auto) 0.1 (0.0-0.8) x10E3/uL Eos # [...] bypass graft (4) Coronary artery disease involving [place] coronary artery of [place] heart without angina pectoris: Code(s): I25.10 - Atherosclerotic heart disease of [place] coronary artery without angina pectoris (5) Myocardial [...] <Electronically signed by Justine Jacobo MD> 11/21/23 [facility] Work Phone: 1([phone]) 423-873303-14-2024 Progress note Author Winter Norris [facility] November 21, 2023 12:12pm Note Date/Time November 21, 2023 12: 09pm [facility] [address] [place] [address] Event Note Signed Patient: Melissa Dubose MR#: [id number] : 1960 Acct:[id number] Age/Sex: 63 / F Adm Date: 4 Loc: Room: [address] [place] [address] Type: ADM IN Attending Dr: Winter Norris [...] signed by Winter Norris MD> 11/21/23 1212 [facility] Work Phone: 1([phone]) 393-654603-14-2024 History and physical note Author Isaac Greenwood [facility] November 21, 2023 5:31am Note Date/Time November 21, 2023 3:0 1am [facility] [address] [place] [address] Hospitalist H&P Signed Patient: Melissa Dubose MR#: [id number] : 1960 Acct:[id number] Age/Sex: 63 / F Adm Date: 4 Loc: Room: [address] [place] [address] Type: ADM IN Attending Dr: Isaac Greenwood DO Copies to: MD Karen West APRN Shawn J Warner, DO~ HPI DATE OF EXAMINATION: 11/21/23 CHIEF COMPLAINT: Chest pain, sob, N/V/D, fever, cough HISTORY OF PRESENT ILLNESS: Ms. Dubose is a 63-year-old female that presented to the [facility] emergency room for complaints of chest pain, [...] CABG-3 vessel, T2DM, HTN. EKG at [facility] emergency room shows A-fib with RVR. She [...] 125 Solu-Medrol, Zofran Tamiflu. She follows with [facility] cardiology however they had no beds available. She agreed to transfer to the closest facility which is [facility]. Patient was transferred here to the progressive floor under the care of hospitalist team. Review of Systems Review of Systems Review of systems: A 10 point review of systems was obtained, negative unless noted in the HPI or below. [facility] Medical History (Updated 11/21/23 @ 03:40 by Karen Mays APRN) Myocardial infarction Hypertension Diabetes Surgical History (Updated 11/21/23 @ 03:31 by Karen Mays APRN) History of back surgery Hx of CABG 3 vessel at [facility] Family History (Updated 11/21/23 @ 03:31 [...] 86% on room air upon arrival to [facility] emergency room, 4 L nasal cannula applied [...] Nurse Practitioner's assessment and plan. - Isaac Greenwood, DO IP vs OBS Justification Based on [...] signed by Isaac Greenwood DO> 11/21/23 0531 [facility] Work Phone: Evaluation + Plan note No data available for this section [facility] evaluation note* Diagnosis Onset Date Resolution Status Acute hypoxic respiratory failure acute Atrial fibrillation acute Chest pain acute [id number] acute Diabetes acute Headache acute HFrEF (heart failure with reduced ejection fraction) acute Hypertension acute Influenza A acute Myocardial injury acute NSTEMI (non-ST elevated myocardial infarction) acute S/P CABG (coronary artery bypass graft) acute Shortness of breath acute [facility] Work Phone: Hospital Discharge instructions No data available for this section [facility] Progress note No data available for this section [facility] Summary Purpose Family History No Family History Records Found Relationship Condition Age at Onset Recorded Date/T carroll Not Specified Diabetes mellitus Unknown Not Specified Malignant neoplasm of pancreas Unknown daughter Diabetes mellitus Unknown Advance Directives No Advanced Directives Records Found Advance Directive Response Recorded Date/ Time Advance Directives No November 20 024 1:29am Chief Complaint and Reason for Visit Chief Complaint New onset Afib, NSte mi New onset Afib, NStemi New onset Afib, NStemi Reason for Visit Acute hypoxic respir atory failure Atrial fibrillation Chest pain [id number] Diabetes Headache HFrEF (heart failure with reduced ejection fraction) Hypertension Influenza A Myocardial injury NSTEMI (non-ST elevated myocardial infarction) S/P CABG (coronary artery bypass graft) Shortness of breath Additional Source Comments INFORMATION SOURCE (unrecogn ized section and content) DATE CREATED AUTHOR 03/05/2018 [facility] DATE CREATED AUTHOR AUTHOR'S ORGANIZ ATION 01/24/2023 [facility] DATE CREATED AUTHOR AUTHOR'S ORGANIZ ATION 12/18/2023 [facility] DATE CREATED AUTHOR AUTHOR'S ORGANIZ ATION 05/03/2024 [facility] DATE CREATED AUTHOR AUTHOR'S ORGANIZ ATION 06/04/2024 [facility] DATE CREATED AUTHOR AUTHOR'S ORGANIZ ATION 06/14/2024 [facility] Care Teams (unrecognized sec tion and [...] Zach Jones MD Other Provider Active Start: Victor Hugo pickett 2023 Justine Jacobo MD Attending Provider, Other [...] BE BASED ON THE PRIMARY CLINICAL RECORDS. [facility]. provides no warranty or guarantee of the accuracy or completeness of information in this document.
--- NOTE | 2024-06-23 15:00 | CA_ITS ---
Patient Name: KAYLA HEATH MR#: [id number] : 1960 Exam Date: 06/23/2024 Ordering Doctor: DR JUSTINE GRIMES M.D. ECHOCARDIOGRAM REPORT PROCEDURE: CA ECHO W/ CON INDICATIONS: heart failure with reduced ejection fraction COMPARISON: None. DESCRIPTION: COMPLETE ECHOCARDIOGRAM Real-time transthoracic echocardiography with 2D, M-mode, spectral and color flow Doppler performed. QUALITY: Lumason contrast was administered due to suboptimal imaging for left ventricular opacification to improve delineation of endocardial boarders. LEFT VENTRICLE: Mild dilatation. Moderate concentric left ventricular hypertrophy. Calculated left ventricular ejection fraction is severely reduced at 20%. Global left ventricle hypokinesis is noted LV EF: DIASTOLIC: ATRIAL SEPTUM: LEFT ATRIUM: Mild dilatation. RIGHT ATRIUM: Mild dilatation. RIGHT VENTRICLE: Normal chamber size. Normal right ventricular systolic function. TRICUSPID VALVE: MITRAL VALVE: AORTIC VALVE: AORTIC ROOT: Mildly dilated. PULMONIC VALVE: PERICARDIUM: No evidence of pericardial effusion. IVC: PLEURA: CONCLUSION: Mildly dilated left ventricle Moderate concentric left ventricular hypertrophy Severely reduced left ventricle systolic function, ejection fraction 20%, global hypokinesis is noted Mild biatrial enlargement Mildly dilated aortic root Adult Echocardiography Procedure Report Left Ventricle LVEDD (3.7 - 5.6 cm): 5.55 cm LVESD (2.2 - 4.0 cm): 4.91 cm LVIVS thickness (0.6 - 1.2 cm): 1.65 cm LVPW thickness (0.5 - 1.0 cm): 1.40 cm e': E - e': LVOT Max Gradient: LVOT Area (cm2): Peak Velocity (LVOT): Mean Velocity (LVOT): LVOT Diameter 2.22 cm Left Ventricular Ejection Fraction: 29.51 % Left Atrium LA Volume Index (2D A2C): 41.15 ml/m2 Left Atrium Systolic Dimension: Mitral Valve MV E to A Ratio: MV Max Gradient: MV Mean Gradient: Mitral Valve A-Wave Peak Velocity: Mitral Valve E-Wave Peak Velocity: Cardiovascular Orifice Area: Right Ventricle RV Internal Diastolic Dimension: 3.16 cm Aorta AO Root Diam: 3.89 cm Ascending Ao Diam: Aortic Valve AoV Area (Peak Liam): AoV Area (VTI): Deceleration [place]: Pressure Half-Time: Peak Velocity(Antegrade Flow): Peak Gradient(Antegrade Flow): Mean Velocity(Antegrade Flow): Mean Gradient(Antegrade Flow): Velocity Time Integral: Tricuspid Valve Peak Velocity (Regurgitant Flow): Peak Velocity: Pulmonic Valve Mean Gradient: Mean Velocity: Peak Velocity: Peak Gradient: Right Atrium Right Atrium Systolic Pressure: 47.35 ml, 47.35 ml Dictated by: Lesvia Rodríguez MD on 06/23/2024 at 17:00 Approved by: Lesvia Rodríguez MD on 06/23/2024 at 17:10
[2024-06-23] MEDS: SULFUR HEXAFLUORIDE MICROSPHR 25 MG/5 ML VIAL 15 MG IV (15:46)
== END 2024-06-23 14:09 | disposition home or self-care (01) ==
LOC: CARD 14:09
PROVIDERS: PCP Family Medicine; Visit Provider Internal Medicine Interventional Cardiology
DX: I50.22 Chronic systolic (congestive) heart failure (principal)
CPT/HCPCS: C8929; Q9950

== ENCOUNTER 2024-07-29 13:09 | Outpatient (OUT) | payer MEDICARE, SELFPAY ==
--- OUTSIDE RECORDS SUMMARY | 2024-07-29 13:27 | XMS_ITS | CCD ---
Author Organization [facility] Care Team Providers Care Hoop Puncher Name Role Phone PHYSICIAN, DEFAULT Unavailable Unavailable PHYSICIAN, DEFAULT Unavailable Unavailable MADISON MCCORMACK Unavailable Unavailable UNKNOWN, PROVIDER Unavailable Unavailable UNKNOWN, PROVIDER Unavailable Unavailable MADISON MCCORMACK Unavailable Unavailable MADISON MCCORMACK Unavailable Unavailable PEPE Barr, MYKE Admitting Unavailable PEPE Barr, MYKE Attending Unavailable DR SUNIL THOMPSON Consulting Unavailable [...] Unavailable MD Madison Mccormack Primary Care Provider [phone] DO Isaac Greenwood Admit Provider MD Johnny Bernal Attending Provider [phone] Jaimie Lopez Consulting Unavailable Madison Mccormack Primary [...] Attending Unavailable Madison Mccormack Primary Care Physician [phone] Ashley Tariq Attending Unavailable Ashley Tariq Attending Unavailable Ashley Tariq Admitting Unavailable Benjy CAMPBELL Attending Unavailable Allergies Allergy Classification Reported Allergen(s) Allergy Type Date of Onset Reaction(s) Facility (1 source) acetaminophen / oxyCODONE Drug Allergy 6 AOF [facility] Repository (1 source) No Known Allergies; Translations: [No Known Allergies] Propensity to adverse reactions (disorder) 7 [facility] Repository (1 source) Acetaminophen / oxyCODONE; Translations: [OXYCODONE-ACETAM INOPHEN] Drug Allergy 6 [facility] Repository Medications Current Medications Medication Drug [...] Ordered Start: 11-25-2023 take 1 tablet by ajnay th twice daily Apixaban (Eliquis) 5 mg [...] disease (11 sources) Atherosclerotic heart disease of [place] coronary artery without angina pectoris; Translations: [Coronary [...] source) Long-term current use of anticoagulant; Translations: [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 anticoagulants] Onset: 4 Episodic [...] UNCOMP] Onset: 2 Chronic Unclassified (1 source) 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 oral hypoglycemic drugs; Translations: [[facility] (CURRENT) USE OF ORAL HYPOGLYCEMIC DRUGS] Onset: [...] 4 06-02-2024 Episodic Other aftercare (3 sources) penitentiary (current) use of aspirin; Translations: [penitentiary (current) use of antithrombotics/antipl atelets] Onset: 7 Episodic Other aftercare (1 source) Other prison (current) drug therapy; Translations: [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 MicroScopic Description - Adequacy - Adequate Gross Description Site ID:A color Yellow fixative Alcohol Specimen designated Clean Catch received in alcohol preservative and labeled with the patient???s name, consists of 40ml cloudy yellow fluid. Electronically signed by : on: 06/05/2024 15:04:11 Performed By: #### 1 [id number] #### [facility] Laboratory [address] [place] [address] Ambulatory Visit Summaryon 0 06-02-2024 Ambulatory Visit [...] AJ Jean When: Comments: cysto Where: [address] [place] [id number] Medications What How Much When Instructions Unchanged [...] that req (more content not included)... Normal [facility] Urine Cytology ([facility])on 06-02-2024 Method of Extraction Voided Normal [facility] Comment on above: Performed By: #### 1 [id number] #### [facility] Laboratory [address] Number of Jars 1 Invalid Interpretation Code [facility] Comment on above: Performed By: #### 1 [id number] #### [facility] Laboratory [address] [place] [id number] Specimen Clean Catch Normal [facility] Comment on above: Performed By: #### 1 [id number] #### [facility] Laboratory [address] [place] [address] Type of Service Technical Only Normal Fi suzanne [facility] Comment on above: Performed By: #### 1 [id number] #### [facility] Laboratory [address] [place] [address] Urology Office/Clinic Noteon 06-02-2024 Urology Office/Clinic Note [...] with voice recognition artificial intelligence software, specifically [employer], imgfave and or [employer]. Substitutions may have occurred due to the [...] nodule. Discussed adrenal nodule findings. Will call [facility] radiology for Hounsfield measurements between the contrast and noncontrast images. May need additional lab work versus further workup. Patient will likely need separate discussion regarding this, she was very overwhelmed with hematuria discussion today. -Request for addendum on [facility] CTs 3. OAB (overactive bladder) (N32.81: [...] nonobstructing nephrol (more content not included)... Normal [facility] Comment on above: Result Comment: Elec tronically Signed By: HILTON Tariq APRN, Ashley Sorenson\.br\Date and Time Signed: 06/02/24 14:44 EDT Office Visiton 05-01-2024 Follow-up visit [id number] Chung Dubose 1960 F Date Provider Department Center 05/01/2024 JUSTINE NOLAN DEMETRIS Parra Family History Problem Relation Age of Onset Diabetes Mother Atrial fibrillation Mother Hyperlipidemia Mother Kidney disease Sister Heart attack Maternal Grandmother Stroke Maternal Grandmother Family Status - Relation Status Age at Mother Sister Maternal Grandmother Level of Service:55174 MS OFFICE/OUTPATIENT ESTABLISHED MOD MDM 30 MIN Normal [facility] Office Visiton 02-19-2024 Follow-up visit [id number] Chung Dubose 1960 F Date Provider Department Center 02/19/2024 [id number] WHITE DEMETRIS Parra Family History Problem Relation Age of Onset Diabetes Mother Atrial fibrillation Mother Hyperlipidemia Mother Kidney disease Sister Heart attack Maternal Grandmother Stroke Maternal Grandmother Family Status - Relation Status Age at Mother Sister Maternal Grandmother Level of Service:80147 MS OFFICE/OUTPATIENT ESTABLISHED MOD MDM 30 MIN Normal [facility] ANESon 01-17-2024 ANES -------- Attestation signed [...] Information Date/Time: 01/17/24904 Procedure: Cardioversion/defibrillation Location: [facility]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 Use of blood products discussed with patient who. Plan discussed with attending. Additional Equipment Requests Normal [facility] HPon 01-17-2024 HP -------- Attestation signed [...] were addressed and answered. Jocelin Barajas MD [employer] Boat Assembly Supervisor - PGY5 [facility] NURSNOTEon 01-17-2024 NURSNOTE RN educated pt on d/ c instructions. RN encouraged pt to voice any questions or concerns. Pt verbalizes no questions or concerns at this time. [facility] NURSNOTE Patient passed swall ow test. No issues. [facility] HPon 12-27-2023 [facility] Cardiology - [facility] Fili Dubose is a 63 y.o. year [...] use: Not Currently Drug use: Never PACO Torres is seen in follow up. She [...] ventricular response. She underwent cardiac catheterization at [facility] which showed patent bypass grafts. She [...] wave abn (more content not included)... Normal [facility] Office Visiton 12-27-2023 Follow-up visit [id number] Chung Dubose 1960 F Date Provider Department Center 12/27/2023 JUSTINE NOLAN DEMETRIS Parra Family History Problem Relation Age of Onset Diabetes Mother Atrial fibrillation Mother Hyperlipidemia Mother Kidney disease Sister Heart attack Maternal Grandmother Stroke Maternal Grandmother Family Status - Relation Status Age at Mother Sister Maternal Grandmother Level of Service:82471 MS OFFICE/OUTPATIENT ESTABLISHED HIGH MDM 40 MIN Reason for Visit and Comments: Follow-up [219446] - Follow up per [facility] Office Visiton 12-11-2023 Follow-up visit [id number] Chung Dubose 1960 Date Provider Department Center 12/11/2023 TREVIN COTTO DEMETRIS Milly Aida Family History Problem Relation Age of Onset Diabetes Mother Atrial fibrillation Mother Hyperlipidemia Mother Kidney disease Sister Heart attack Maternal Grandmother Stroke Maternal Grandmother Family Status - Relation Status Age at Mother Sister Maternal Grandmother Level of Service:62242 MS OFFICE/OUTPATIENT ESTABLISHED HIGH MDM 40 MIN Reason for Visit and Comments: Hospital Follow-up [832] Congestive Heart Failure [127] Coronary Artery Disease [187] Atrial Fibrillation [80] Normal [facility] Glucose Poct Glucometerson 0 11-25-2023 Glucose [Mass/Vol] 255 mg/dL Normal [facility] Comment on above: Result Comment: [facility] Glucose Reference Range is dependent on time and content of last meal. Glucose of more than 200 mg/dL in a nonstressed, ambulatory subject supports the diagnosis of Diabetes Mellitus. PERFORMED BY: [place] [address] PATHOLOGIST SECURITY ALARM INSTALLER SUNNI CH M.D. Performed By: #### P T, PTT #### [facility] [address] [place], [place] [id number] [facility] Basic Metabolic Panelon 03- Anion gap [Moles/Vol] 10.9 mmol/L Normal 6.0-15.0 [facility] Comment on above: Performed By: #### P T, PTT #### [place] [id number] [facility] Calcium [Mass/Vol] 9.0 mg/dL Normal 8.6-10.3 [facility] Comment on above: Performed By: #### P T, PTT #### [address] Chloride [Moles/Vol] 100 mmol/L Normal 98-107 [facility] Comment on above: Performed By: #### P T, PTT #### [address] CO2 [Moles/Vol] 30.8 mmol/L Normal 21.0-31.0 [facility] Comment on above: Performed By: #### P T, PTT #### [address] Creatinine [Mass/Vol] 0.91 mg/dL Normal 0.60-1.20 [facility] Comment on above: Performed By: #### P T, PTT #### [place] [address] [place] Creatinine Clr Calc Pharmacy 85.70 Normal [facility] Comment on above: Result Comment: PERF ORMED BY: [place] [address] PATHOLOGIST SECURITY ALARM INSTALLER SUNNI CH M.D. Performed By: #### P T, PTT #### [address] GFR/1.73 sq M.predicted MDRD (S/P/Bld) [Vol rate/Area] mL/min/{1.73_m2} Normal [facility] Comment on above: Performed By: #### P T, PTT #### [address] Glucose [Mass/Vol] 259 mg/dL Significant change up 70-100 [facility] Comment on above: Result Comment: [place] Glucose Reference Range is dependent on time and content of last meal. Glucose of more than 200 mg/dL in a nonstressed, ambulatory subject supports the diagnosis of Diabetes Mellitus. ADA recommended reference range Performed By: #### P T, PTT #### [facility] [address] [place] [address] [place] Potassium [Moles/Vol] 3.7 mmol/L Normal 3.5-5.1 [facility] Comment on above: Performed By: #### P T, PTT #### [facility] [address] Sodium [Moles/Vol] 138 mmol/L Normal 136-145 [facility] Comment on above: Performed By: #### P T, PTT #### [facility] [address] [place] [address] [place] Urea nitrogen [Mass/Vol] 23 mg/dL Normal 7-25 [facility] Comment on above: Performed By: #### P T, PTT #### [facility] [address] Calcium [Mass/volume] in Ser um or PlasmaOrdered By: Winter Norris on 11-24-2023 Calcium [Mass/Vol] 9.0 mg/dL 8.6-10.3 [facility] Carbon dioxide, total [Moles /volume] in Serum or PlasmaOrdered By: Winter Norris on 11-24-2023 CO2 [Moles/Vol] 30.8 mmol/L 21.0-31.[address] [facility] Chloride [Moles/volume] in S mehreen or PlasmaOrdered By: Winter Norris on 11-24-2023 Chloride [Moles/Vol] 100 mmol/L 98-107 [facility] Creatinine [Mass/volume] in Serum or PlasmaOrdered By: Winter Norris on 11-24-2023 Creatinine [Mass/Vol] 0.91 mg/dL 0.60-1.20 [facility] Glucose Glucometer (BldC) [M ass/Vol]Ordered By: Winter Norris on 11-24-2023 Glucose [Mass/Vol] 271 mg/dL [facility] Comment on above: Random Glucose Refer ence Range is dependent on time and content of last meal. Glucose of more than 200 mg/dL in a nonstressed, ambulatory subject supports the diagnosis of Diabetes Mellitus. Glucose Poct Glucometerson 0 11-24-2023 Glucose [Mass/Vol] 271 mg/dL Normal [facility] Comment on above: Result Comment: [place] om Glucose Reference Range is dependent on time and content of last meal. Glucose of more than 200 mg/dL in a nonstressed, ambulatory subject supports the diagnosis of Diabetes Mellitus. PERFORMED BY: [place] [id number] PATHOLOGIST SECURITY ALARM INSTALLER SUNNI CH M.D. Performed By: #### G LULS #### Point of Care testing , Glucose [Mass/Vol] 337 mg/dL Normal [facility] Comment on above: Result Comment: [place] om Glucose Reference Range is dependent on time and content of last meal. Glucose of more than 200 mg/dL in a nonstressed, ambulatory subject supports the diagnosis of Diabetes Mellitus. PERFORMED BY: [place] [id number] PATHOLOGIST SECURITY ALARM INSTALLER SUNNI CH M.D. Performed By: #### P T, PTT #### [address] Glucose [Mass/Vol] 238 mg/dL Normal [facility] Comment on above: Result Comment: [place] om Glucose Reference Range is dependent on time and content of last meal. Glucose of more than 200 mg/dL in a nonstressed, ambulatory subject supports the diagnosis of Diabetes Mellitus. PERFORMED BY: [place] [id number] PATHOLOGIST SECURITY ALARM INSTALLER SUNNI CH M.D. Performed By: #### P T, PTT #### [address] Glucose [Mass/Vol] 173 mg/dL Normal [facility] Comment on above: Result Comment: [place] om Glucose Reference Range is dependent on time and content of last meal. Glucose of more than 200 mg/dL in a nonstressed, ambulatory subject supports the diagnosis of Diabetes Mellitus. PERFORMED BY: [address] [id number] PATHOLOGIST SECURITY ALARM INSTALLER SUNNI CH M.D. Performed By: #### P T, PTT #### [facility] [address] [place] [address] [place] Glucose [Mass/volume] in Ser um or PlasmaOrdered By: Winter Norris on 11-24-2023 Glucose [Mass/Vol] 259 mg/dL 70-100 [facility] Comment on above: [place]: 133 on -[id number] recommended reference rangeRandom Glucose Reference Range is dependent on time and content of last meal. Glucose of more than 200 mg/dL in a nonstressed, ambulatory subject supports the diagnosis of Diabetes Mellitus. No Panel InformationOrdered By: Winter Norris on 11-24-2023 Estimated GFR (CKD-EPI) > 60.0 mL/Min [facility] Creatinine Clearance (Chem 85.70 [facility] Potassium [Moles/volume] in Serum or PlasmaOrdered By: Winter Norris on 11-24-2023 Potassium [Moles/Vol] 3.7 mmol/L 3.5-5.1 [facility] Serum or plasma anion gap de terminationOrdered By: Winter Nroris on 11-24-2023 Anion gap [Moles/Vol] 10.9 mmol/L 6.0-15.0 [facility] Sodium [Moles/volume] in Ser um or PlasmaOrdered By: Winter Norris on 11-24-2023 Sodium [Moles/Vol] 138 mmol/L 136-145 [facility] Urea nitrogen [Mass/volume] in Serum or PlasmaOrdered By: Winter Norris on 11-24-2023 Urea nitrogen [Mass/Vol] 23 mg/dL 7-25 [facility] Basic Metabolic Panelon 11-07 Anion gap [Moles/Vol] 11.8 mmol/L Normal 6.0-15.0 [facility] Comment on above: Performed By: #### B MP, CBC #### [facility] [address] [place] [id number] [facility] Calcium [Mass/Vol] 9.2 mg/dL Normal 8.6-10.3 [facility] Comment on above: Performed By: #### B MP, CBC #### [address] Chloride [Moles/Vol] 103 mmol/L Normal 98-107 [facility] Comment on above: Performed By: #### B MP, CBC #### [address] CO2 [Moles/Vol] 29.1 mmol/L Normal 21.0-31.0 [facility] Comment on above: Performed By: #### B MP, CBC #### [address] Creatinine [Mass/Vol] 0.94 mg/dL Normal 0.60-1.20 [facility] Comment on above: Performed By: #### B MP, CBC #### [address] Creatinine Clr Calc Pharmacy 82.97 Normal [facility] Comment on above: Result Comment: PERF ORMED BY: [place] [address] PATHOLOGIST SECURITY ALARM INSTALLER SUNNI CH M.D. Performed By: #### B MP, CBC #### [address] GFR/1.73 sq M.predicted MDRD (S/P/Bld) [Vol rate/Area] mL/min/{1.73_m2} Normal [facility] Comment on above: Performed By: #### B MP, CBC #### [address] Glucose [Mass/Vol] 133 mg/dL High 70-100 [facility] Comment on above: Result Comment: [place] Glucose Reference Range is dependent on time and content of last meal. Glucose of more than 200 mg/dL in a nonstressed, ambulatory subject supports the diagnosis of Diabetes Mellitus. ADA recommended reference range Performed By: #### B MP, CBC #### [address] Potassium [Moles/Vol] 3.9 mmol/L Normal 3.5-5.1 [facility] Comment on above: Performed By: #### B MP, CBC #### [address] Sodium [Moles/Vol] 140 mmol/L Normal 136-145 [facility] Comment on above: Performed By: #### B MP, CBC #### [address] Urea nitrogen [Mass/Vol] 23 mg/dL Normal 7-25 [facility] Comment on above: Performed By: #### B MP, CBC #### [address] Basophils Auto (Bld) [#/Vol] Ordered By: Winter Norris on 11-23-2023 Basophils (Bld) [#/Vol] 0.0 10*3/uL 0.0-0.2 [facility] Basophils/100 WBC Auto (Bld) Ordered By: Winter Norris on 11-23-2023 Basophils/100 WBC (Bld) 0.1 % . [facility] Complete Blood Count Auto Di ffon 11-23-2023 Basophils (Bld) [#/Vol] 0.0 10*3/uL Normal 0.0-0.2 [facility] Comment on above: Result Comment: PERF ORMED BY: [place] [address] PATHOLOGIST SECURITY ALARM INSTALLER SUNNI CH M.D. Performed By: #### B MP, CBC #### [place] [address] [place] Basophils/100 WBC (Bld) 0.1 % Normal . [facility] Comment on above: Performed By: #### B MP, CBC #### [place] [address] [place] Eosinophils (Bld) [#/Vol] 0.0 10*3/uL Normal 0.0-0.45 [facility] Comment on above: Performed By: #### B MP, CBC #### [place] [address] [place] Eosinophils/100 WBC (Bld) 0.0 % Normal . [facility] Comment on above: Performed By: #### B MP, CBC #### [address] Erythrocyte distribution width (RBC) [Ratio] 15.3 % Normal 11.9-15.3 [facility] Comment on above: Performed By: #### B MP, CBC #### [address] Hematocrit (Bld) [Volume fraction] 40.4 % Normal 34.0-46.4 [facility] Comment on above: Performed By: #### B MP, CBC #### [address] Hemoglobin (Bld) [Mass/Vol] 13.1 g/dL Normal 11.8-15.4 [facility] Comment on above: Performed By: #### B MP, CBC #### [address] Lymphocytes (Bld) [#/Vol] 1.7 10*3/uL Normal 1.00-4.8 [facility] Comment on above: Performed By: #### B MP, CBC #### [place] [address] [place] Lymphocytes/100 WBC (Bld) 17.7 % Normal . [facility] Comment on above: Performed By: #### B MP, CBC #### [address] MCH (RBC) [Entitic mass] 28.2 pg Normal 24.7-34.3 [facility] Comment on above: Performed By: #### B MP, CBC #### [address] MCV (RBC) [Entitic vol] 86.9 fL Normal 80-100 [facility] Comment on above: Performed By: #### B MP, CBC #### [address] Mean Corpuscular HGB Conc 32.4 g/dL Normal 32.0-35.0 [facility] Comment on above: Performed By: #### B MP, CBC #### [facility] [address] [place] [address] [place] Monocytes (Bld) [#/Vol] 0.9 10*3/uL High 0.0-0.8 [facility] Comment on above: Performed By: #### B MP, CBC #### [place] [address] [place] Monocytes/100 WBC (Bld) 9.5 % Normal . [facility] Comment on above: Performed By: #### B MP, CBC #### [address] Neutrophils (Bld) [#/Vol] 7.0 10*3/uL Normal 1.8-7.7 [facility] Comment on above: Performed By: #### B MP, CBC #### [place] [address] [place] Neutrophils/100 WBC (Bld) 72.7 % Normal . [facility] Comment on above: Performed By: #### B MP, CBC #### [address] NRBC% 0.1 /100{WBC} Normal 0-0.5 [facility] Comment on above: Performed By: #### B MP, CBC #### [address] Platelet mean volume (Bld) [Entitic vol] 8.5 fL Normal 6.3-10.7 [facility] Comment on above: Performed By: #### B MP, CBC #### [place] [address] [place] Platelets (Bld) [#/Vol] 203 10*3/uL Normal 150-450 [facility] Comment on above: Performed By: #### B MP, CBC #### [place] [address] [place] RBC (Bld) [#/Vol] 4.65 10*6/uL Normal 3.60-5.00 [facility] Comment on above: Performed By: #### B MP, CBC #### [facility] [address] WBC (Bld) [#/Vol] 9.6 10*3/uL Normal 3.8-11.6 [facility] Comment on above: Performed By: #### B MP, CBC #### [facility] [address] Eosinophils Auto (Bld) [#/Vo l]Ordered By: Winter Norris on 11-23-2023 Eosinophils (Bld) [#/Vol] 0.0 10*3/uL 0.0-0.45 [facility] Eosinophils/100 WBC Auto (Bl d)Ordered By: Winter Norris on 11-23-2023 Eosinophils/100 WBC (Bld) 0.0 % . [facility] Erythrocyte distribution wid th Auto (RBC) [Ratio]Ordered By: Winter Norris on 11-23-2023 Erythrocyte distribution width (RBC) [Ratio] 15.3 % 11.9-15.3 [facility] Glucose Poct Glucometerson 0 11-23-2023 Glucose [Mass/Vol] 313 mg/dL Normal [facility] Comment on above: Result Comment: [facility] Glucose Reference Range is dependent on time and content of last meal. Glucose of more than 200 mg/dL in a nonstressed, ambulatory subject supports the diagnosis of Diabetes Mellitus. PERFORMED BY: [place] [address] PATHOLOGIST SECURITY ALARM INSTALLER SUNNI CH M.D. Performed By: #### P T, PTT #### [address] Commemt1 Glu2: Cleaned Meter Normal [facility] Comment on above: Result Comment: PERF ORMED BY: [place] [address] PATHOLOGIST SECURITY ALARM INSTALLER SUNNI CH M.D. Performed By: #### B MP, CBC #### [address] Glucose [Mass/Vol] 307 mg/dL Normal [facility] Comment on above: Result Comment: [place] om Glucose Reference Range is dependent on time and content of last meal. Glucose of more than 200 mg/dL in a nonstressed, ambulatory subject supports the diagnosis of Diabetes Mellitus. Performed By: #### B MP, CBC #### [address] Commemt1 Glu2: Cleaned Meter Normal [facility] Comment on above: Result Comment: PERF ORMED BY: [place] [address] PATHOLOGIST SECURITY ALARM INSTALLER SUNNI CH M.D. Performed By: #### P T, PTT #### [address] Glucose [Mass/Vol] 131 mg/dL Normal [facility] Comment on above: Result Comment: [place] om Glucose Reference Range is dependent on time and content of last meal. Glucose of more than 200 mg/dL in a nonstressed, ambulatory subject supports the diagnosis of Diabetes Mellitus. Performed By: #### P T, PTT #### [address] Commemt1 Glu2: Cleaned Meter Normal [facility] Comment on above: Result Comment: PERF ORMED BY: [place] [address] PATHOLOGIST SECURITY ALARM INSTALLER SUNNI CH M.D. Performed By: #### P T, PTT #### [place] [address] [place] Glucose [Mass/Vol] 140 mg/dL Normal [facility] Comment on above: Result Comment: [place] om Glucose Reference Range is dependent on time and content of last meal. Glucose of more than 200 mg/dL in a nonstressed, ambulatory subject supports the diagnosis of Diabetes Mellitus. Performed By: #### P T, PTT #### [address] Hematocrit Auto (Bld) [Volum e fraction]Ordered By: Winter Norris on 11-23-2023 Hematocrit (Bld) [Volume fraction] 40.4 % 34.0-46.4 [facility] Hemoglobin [Mass/volume] in BloodOrdered By: Winter Norris on 11-23-2023 Hemoglobin (Bld) [Mass/Vol] 13.1 g/dL 11.8-15.4 [facility] Leukocytes [#/volume] correc nargis for nucleated erythrocytes in Blood by Automated counOrdered By: Winter Norris on 11-23-2023 WBC corrected for nucl RBC Auto (Bld) [#/Vol] 9.6 10*3/uL 3.8-11.6 [facility] Lymphocytes Auto (Bld) [#/Vo l]Ordered By: Winter Norris on 11-23-2023 Lymphocytes (Bld) [#/Vol] 1.7 10*3/uL 1.00-4.8 [facility] Lymphocytes/100 WBC Auto (Bl d)Ordered By: Winter Norris on 11-23-2023 Lymphocytes/100 WBC (Bld) 17.7 % . [facility] MCH Auto (RBC) [Entitic mass ]Ordered By: Winter Norris on 11-23-2023 MCH (RBC) [Entitic mass] 28.2 pg 24.7-34.3 [facility] MCHC Auto (RBC) [Mass/Vol]Or dered By: Winter Norris on 11-23-2023 MCHC (RBC) [Mass/Vol] 32.4 g/dL 32.0-35.0 [facility] MCV Auto (RBC) [Entitic vol] Ordered By: Winter Norris on 11-23-2023 MCV (RBC) [Entitic vol] 86.9 fL 80-100 [facility] Monocytes Auto (Bld) [#/Vol] Ordered By: Winter Norris on 11-23-2023 Monocytes (Bld) [#/Vol] 0.9 10*3/uL 0.0-0.8 [facility] Monocytes/100 WBC Auto (Bld) Ordered By: Winter Norris on 11-23-2023 Monocytes/100 WBC (Bld) 9.5 % . [facility] Neutrophils Auto (Bld) [#/Vo l]Ordered By: Winter Norris on 11-23-2023 Neutrophils (Bld) [#/Vol] 7.0 10*3/uL 1.8-7.7 [facility] Neutrophils/100 WBC Auto (Bl d)Ordered By: Winter Norris on 11-23-2023 Neutrophils/100 WBC (Bld) 72.7 % . [facility] No Panel InformationOrdered By: Winter Norris on 11-23-2023 Bedside Glucose Comment Glu2: cleaned meter [facility] Nucleated erythrocytes [Pres ence] in Blood by Automated countOrdered By: Winter Norris on 11-23-2023 Nucleated RBC Auto Ql (Bld) 0.1 /100{WBC} 0-0.5 [facility] Platelet mean volume Auto (B ld) [Entitic vol]Ordered By: Winter Norris on 11-23-2023 Platelet mean volume (Bld) [Entitic vol] 8.5 fL 6.3-10.7 [facility] Platelets Auto (Bld) [#/Vol] Ordered By: Winter Norris on 11-23-2023 Platelets (Bld) [#/Vol] 203 10*3/uL 150-450 [facility] RBC Auto (Bld) [#/Vol]Ordere d By: Winter Norris on 11-23-2023 RBC (Bld) [#/Vol] 4.65 10*6/uL 3.60-5.00 [facility] WBC Auto (Bld) [#/Vol]Ordere d By: Winter Norris on 11-23-2023 WBC (Bld) [#/Vol] 9.6 10*3/uL 3.8-11.6 [facility] XR chest 1V portableon 11-22 XR chest 1V [address] [facility] [place] [address] XRay Report Signed Patient: Melissa Dubose MR#: [id number] 68 : 1960 Acct:[id number] Age/Sex: 63 / F ADM Date: 11/21/23 Loc: Room: [address] [place] [address] Type: ADM IN Attending Dr: Winter Norris [...] Orville Oliver M.D.11/23/2023 10:44 AM Dictation Location: [place] [address] Transcribed By: [facility] 11/23/23 1044 Dictated By: Orville Oliver II, MD 11/23/23 1043 Signed By: 11/23/23 1044 Normal [facility] Activated partial thrombopla stin time (aPTT) in platelet poor plasma by coagulation aOrdered By: Justine Jacobo on 11-22-2023 aPTT Coag (PPP) [Time] 27.6 s 25.1-36.5 [facility] Comment on above: A hematocrit value g reater than 55% may lead to inaccurate results in coagulation testing. Patients having hematocrit values >55% require a special collection tube for coagulation studies. Please contact the laboratory at [phone] for redraw instructions. Blood Urea Nitrogenon 2023 Urea nitrogen [Mass/Vol] 24 mg/dL Normal 7-25 [facility] Comment on above: Performed By: #### P T, PTT #### [address] Coagulation Profileon 2023 aPTT Coag (Bld) [Time] 27.6 s Normal 25.1-36.5 [facility] Comment on above: Result Comment: A he matocrit value greater than 55% may lead to inaccurate results in coagulation testing. Patients having hematocrit values >55% require a special collection tube for coagulation studies. Please contact the laboratory at [phone] for redraw instructions. PERFORMED BY: [place] [address] PATHOLOGIST SECURITY ALARM INSTALLER SUNNI CH M.D. Performed By: #### P T, PTT #### [address] INR Coag (PPP) [Relative time] 1.2 {INR} Normal [facility] Comment on above: Result Comment: [...] Performed By: #### P T, PTT #### [address] PT Coag (PPP) [Time] 14.0 s High 9.0-12.9 [facility] Comment on above: Result Comment: A he matocrit value greater than 55% may lead to inaccurate results in coagulation testing. Patients having hematocrit values >55% require a special collection tube for coagulation studies. Please contact the laboratory at [phone] for redraw instructions. Performed By: #### P T, PTT #### [address] Complete Blood Count Auto Di ffon 11-22-2023 Basophils (Bld) [#/Vol] 0.0 10*3/uL Normal 0.0-0.2 [facility] Comment on above: Result Comment: PERF ORMED BY: [place] [address] PATHOLOGIST SECURITY ALARM INSTALLER SUNNI CH M.D. Performed By: #### P T, PTT #### [address] Basophils/100 WBC (Bld) 0.1 % Normal . [facility] Comment on above: Performed By: #### P T, PTT #### [address] Eosinophils (Bld) [#/Vol] 0.0 10*3/uL Normal 0.0-0.45 [facility] Comment on above: Performed By: #### P T, PTT #### [place] [address] [place] Eosinophils/100 WBC (Bld) 0.0 % Normal . [facility] Comment on above: Performed By: #### P T, PTT #### [address] Erythrocyte distribution width (RBC) [Ratio] 15.2 % Normal 11.9-15.3 [facility] Comment on above: Performed By: #### P T, PTT #### [address] Hematocrit (Bld) [Volume fraction] 36.9 % Normal 34.0-46.4 [facility] Comment on above: Performed By: #### P T, PTT #### [address] Hemoglobin (Bld) [Mass/Vol] 11.9 g/dL Normal 11.8-15.4 [facility] Comment on above: Performed By: #### P T, PTT #### [place] [address] [place] Lymphocytes (Bld) [#/Vol] 0.6 10*3/uL Low 1.00-4.8 [facility] Comment on above: Performed By: #### P T, PTT #### [place] [address] [place] Lymphocytes/100 WBC (Bld) 10.0 % Normal . [facility] Comment on above: Performed By: #### P T, PTT #### [place] [address] [place] MCH (RBC) [Entitic mass] 28.5 pg Normal 24.7-34.3 [facility] Comment on above: Performed By: #### P T, PTT #### [address] MCV (RBC) [Entitic vol] 88.2 fL Normal 80-100 [facility] Comment on above: Performed By: #### P T, PTT #### [address] Mean Corpuscular HGB Conc 32.4 g/dL Normal 32.0-35.0 [facility] Comment on above: Performed By: #### P T, PTT #### [address] Monocytes (Bld) [#/Vol] 0.6 10*3/uL Normal 0.0-0.8 [facility] Comment on above: Performed By: #### P T, PTT #### [address] Monocytes/100 WBC (Bld) 8.6 % Normal . [facility] Comment on above: Performed By: #### P T, PTT #### [address] Neutrophils (Bld) [#/Vol] 5.3 10*3/uL Normal 1.8-7.7 [facility] Comment on above: Performed By: #### P T, PTT #### [address] Neutrophils/100 WBC (Bld) 81.3 % Normal . [facility] Comment on above: Performed By: #### P T, PTT #### [address] NRBC% 0.1 /100{WBC} Normal 0-0.5 [facility] Comment on above: Performed By: #### P T, PTT #### [address] Platelet mean volume (Bld) [Entitic vol] 8.5 fL Normal 6.3-10.7 [facility] Comment on above: Performed By: #### P T, PTT #### [address] Platelets (Bld) [#/Vol] 177 10*3/uL Normal 150-450 [facility] Comment on above: Performed By: #### P T, PTT #### [address] RBC (Bld) [#/Vol] 4.18 10*6/uL Normal 3.60-5.00 [facility] Comment on above: Performed By: #### P T, PTT #### [address] WBC (Bld) [#/Vol] 6.5 10*3/uL Normal 3.8-11.6 [facility] Comment on above: Performed By: #### P T, PTT #### [address] Creatinineon 11-22-2023 Creatinine [Mass/Vol] 1.15 mg/dL Normal 0.60-1.20 [facility] Comment on above: Performed By: #### P T, PTT #### [address] Creatinine Clr Calc Pharmacy 68.56 Normal [facility] Comment on above: Result Comment: PERF ORMED BY: [place] [address] PATHOLOGIST SECURITY ALARM INSTALLER SUNNI CH M.D. Performed By: #### P T, PTT #### [address] GFR/1.73 sq M.predicted MDRD (S/P/Bld) [Vol rate/Area] 54.198 mL/min/{1.73_m2} Normal [facility] Comment on above: Performed By: #### P T, PTT #### [address] Electrolyteson 11-22-2023 Anion gap [Moles/Vol] 11.4 mmol/L Normal 6.0-15.0 [facility] Comment on above: Performed By: #### P T, PTT #### [facility] [address] [place] [address] [place] Chloride [Moles/Vol] 103 mmol/L Normal 98-107 [facility] Comment on above: Performed By: #### P T, PTT #### [facility] [address] [place] [id number] [place] CO2 [Moles/Vol] 28.3 mmol/L Normal 21.0-31.0 [facility] Comment on above: Performed By: #### P T, PTT #### [facility] [address] [place] [address] [place] Potassium [Moles/Vol] 4.7 mmol/L Normal 3.5-5.1 [facility] Comment on above: Performed By: #### P T, PTT #### [facility] [address] [place] [address] [place] Sodium [Moles/Vol] 138 mmol/L Normal 136-145 [facility] Comment on above: Performed By: #### P T, PTT #### [facility] [address] [place] [address] [place] Glucose Poct Glucometerson 0 11-22-2023 Glucose [Mass/Vol] 351 mg/dL Normal [facility] Comment on above: Result Comment: [facility] Glucose Reference Range is dependent on time and content of last meal. Glucose of more than 200 mg/dL in a nonstressed, ambulatory subject supports the diagnosis of Diabetes Mellitus. PERFORMED BY: [place] [address] PATHOLOGIST SECURITY ALARM INSTALLER SUNNI CH M.D. Performed By: #### B MP, CBC #### [facility] [address] [place] [address] [place] Glucose [Mass/Vol] 181 mg/dL Normal [facility] Comment on above: Result Comment: [facility] Glucose Reference Range is dependent on time and content of last meal. Glucose of more than 200 mg/dL in a nonstressed, ambulatory subject supports the diagnosis of Diabetes Mellitus. PERFORMED BY: [address] [address] PATHOLOGIST SECURITY ALARM INSTALLER SUNNI CH M.D. Performed By: #### P T, PTT #### [facility] [address] [place] [address] Glucose [Mass/Vol] 354 mg/dL Normal [facility] Comment on above: Result Comment: [facility] Glucose Reference Range is dependent on time and content of last meal. Glucose of more than 200 mg/dL in a nonstressed, ambulatory subject supports the diagnosis of Diabetes Mellitus. PERFORMED BY: [place] [address] PATHOLOGIST SECURITY ALARM INSTALLER SUNNI CH M.D. Performed By: #### G LULS #### Point of Care testing , INR in Platelet poor plasma by Coagulation assayOrdered By: Justine Jacobo on 11-22-2023 INR Coag (PPP) [Relative time] 1.2 {INR} [facility] Comment on above: INR Therapeutic Rang e [...] (PPP) [Time] 14.0 s 9.0-12.9 [facility] Comment on above: A hematocrit value g reater than 55% may lead to inaccurate results in coagulation testing. Patients having hematocrit values >55% require a special collection tube for coagulation studies. Please contact the laboratory at [phone] for redraw instructions. A1C with Estimated Average Alistair mehta 11-21-2023 Glucose [Mass/Vol] 88 mg/dL Normal [facility] Comment on above: Result Comment: PERF ORMED BY: [place] [address] PATHOLOGIST SECURITY ALARM INSTALLER SUNNI CH M.D. Performed By: #### P T, PTT #### [facility] [address] [place] [address] [place] HbA1c (Bld) [Mass fraction] 4.7 % Normal 4.3-5.6 [facility] Comment on above: Result Comment: Incr eased risk for diabetes: 5.7 - 6.4 diabetes: >6.4 glycemic control for adults with diabetes: <7.0 Performed By: #### P T, PTT #### [facility] [address] Automated erythrocytes count in urine sediment (number/area)Ordered By: Winter Norris on 11-21-2023 RBC Auto (Urine sed) [#/Area] 1-2 [HPF] 0-4 [facility] Automated leukocytes count i n urine sediment (number/area)Ordered By: Winter Norris on 11-21-2023 WBC Auto (Urine sed) [#/Area] 0-1 [HPF] 0-4 [facility] Basic Metabolic Panelon 11-07 Anion gap [Moles/Vol] 12.9 mmol/L Normal 6.0-15.0 [facility] Comment on above: Performed By: #### B MP, CBC #### [place] [address] [place] Calcium [Mass/Vol] 8.4 mg/dL Low 8.6-10.3 [facility] Comment on above: Performed By: #### B MP, CBC #### [place] [address] [place] Chloride [Moles/Vol] 106 mmol/L Normal 98-107 [facility] Comment on above: Performed By: #### B MP, CBC #### [place] [address] [place] CO2 [Moles/Vol] 22.3 mmol/L Normal 21.0-31.0 [facility] Comment on above: Performed By: #### B MP, CBC #### [address] Creatinine [Mass/Vol] 0.96 mg/dL Normal 0.60-1.20 [facility] Comment on above: Performed By: #### B MP, CBC #### [place] [address] [place] Creatinine Clr Calc Pharmacy 82.13 Normal [facility] Comment on above: Result Comment: PERF ORMED BY: [place] [address] PATHOLOGIST SECURITY ALARM INSTALLER SUNNI CH M.D. Performed By: #### B MP, CBC #### [place] [address] [place] GFR/1.73 sq M.predicted MDRD (S/P/Bld) [Vol rate/Area] mL/min/{1.73_m2} Normal [facility] Comment on above: Performed By: #### B MP, CBC #### [address] Glucose [Mass/Vol] 260 mg/dL High 70-100 [facility] Comment on above: Result Comment: [place] Glucose Reference Range is dependent on time and content of last meal. Glucose of more than 200 mg/dL in a nonstressed, ambulatory subject supports the diagnosis of Diabetes Mellitus. ADA recommended reference range Performed By: #### B MP, CBC #### [place] [address] [place] Potassium [Moles/Vol] 4.2 mmol/L Normal 3.5-5.1 [facility] Comment on above: Performed By: #### B MP, CBC #### [place] [address] [place] Sodium [Moles/Vol] 137 mmol/L Normal 136-145 [facility] Comment on above: Performed By: #### B MP, CBC #### [place] [address] [place] Urea nitrogen [Mass/Vol] 18 mg/dL Normal 7-25 [facility] Comment on above: Performed By: #### B MP, CBC #### [address] Bilirubin Test strip Ql (U)O rdered By: Winter Norris on 11-21-2023 Bilirubin Ql (U) Negative Negative [facility] Cholesterol [Mass/volume] in Serum or PlasmaOrdered By: Karen Mays on 11-21-2023 Cholesterol [Mass/Vol] 95 mg/dL 140-200 [facility] Comment on above: Chol less than 200 m g/dl low riskChol 201-239 mg/dl borderline riskChol 240 mg/dl and greater high risk Cholesterol in LDL Calc [[facility] s/Vol]Ordered By: Karen Mays on 11-21-2023 Cholesterol in LDL [Mass/Vol] 53 mg/dL 0-100 [facility] Comment on above: LDL ATP III CLASSIFI CATIONLDL less than 100 mg/dL OptimalLDL 100-129 mg/dL Near or above optimalLDL 130-159 mg/dL Borderline highLDL 160-189 mg/dL HighLDL greater than 189 mg/dL Very high Cholesterol in VLDL Calc [Ma ss/Vol]Ordered By: Karen Mays on 11-21-2023 Cholesterol in VLDL [Mass/Vol] 12 mg/dL [facility] Color Auto (U)Ordered By: Juanita Norris on 11-21-2023 Color (U) Yellow Yellow [facility] Complete Blood Count Auto Di ffon 11-21-2023 Basophils (Bld) [#/Vol] 0.0 10*3/uL Normal 0.0-0.2 [facility] Comment on above: Result Comment: PERF ORMED BY: [place] [address] PATHOLOGIST SECURITY ALARM INSTALLER SUNNI CH M.D. Performed By: #### B MP, CBC #### [place] [address] [place] Basophils/100 WBC (Bld) 0.3 % Normal . [facility] Comment on above: Performed By: #### B MP, CBC #### [facility] [address] [place] [address] [place] Eosinophils (Bld) [#/Vol] 0.0 10*3/uL Normal 0.0-0.45 [facility] Comment on above: Performed By: #### B MP, CBC #### [place] [address] [place] Eosinophils/100 WBC (Bld) 0.0 % Normal . [facility] Comment on above: Performed By: #### B MP, CBC #### [address] Erythrocyte distribution width (RBC) [Ratio] 15.3 % Normal 11.9-15.3 [facility] Comment on above: Performed By: #### B MP, CBC #### [address] Hematocrit (Bld) [Volume fraction] 37.6 % Normal 34.0-46.4 [facility] Comment on above: Performed By: #### B MP, CBC #### [address] Hemoglobin (Bld) [Mass/Vol] 12.3 g/dL Normal 11.8-15.4 [facility] Comment on above: Performed By: #### B MP, CBC #### [address] Lymphocytes (Bld) [#/Vol] 0.3 10*3/uL Low 1.00-4.8 [facility] Comment on above: Performed By: #### B MP, CBC #### [address] Lymphocytes/100 WBC (Bld) 5.3 % Normal . [facility] Comment on above: Performed By: #### B MP, CBC #### [address] MCH (RBC) [Entitic mass] 29.0 pg Normal 24.7-34.3 [facility] Comment on above: Performed By: #### B MP, CBC #### [address] MCV (RBC) [Entitic vol] 88.3 fL Normal 80-100 [facility] Comment on above: Performed By: #### B MP, CBC #### [address] Mean Corpuscular HGB Conc 32.8 g/dL Normal 32.0-35.0 [facility] Comment on above: Performed By: #### B MP, CBC #### [address] Monocytes (Bld) [#/Vol] 0.1 10*3/uL Normal 0.0-0.8 [facility] Comment on above: Performed By: #### B MP, CBC #### [address] Monocytes/100 WBC (Bld) 2.4 % Normal . [facility] Comment on above: Performed By: #### B MP, CBC #### [address] Neutrophils (Bld) [#/Vol] 4.9 10*3/uL Normal 1.8-7.7 [facility] Comment on above: Performed By: #### B MP, CBC #### [address] Neutrophils/100 WBC (Bld) 92.0 % Normal . [facility] Comment on above: Performed By: #### B MP, CBC #### [address] NRBC% 0.0 /100{WBC} Normal 0-0.5 [facility] Comment on above: Performed By: #### B MP, CBC #### [address] Platelet mean volume (Bld) [Entitic vol] 8.3 fL Normal 6.3-10.7 [facility] Comment on above: Performed By: #### B MP, CBC #### [place] [address] [place] Platelets (Bld) [#/Vol] 158 10*3/uL Normal 150-450 [facility] Comment on above: Performed By: #### B MP, CBC #### [place] [address] [place] RBC (Bld) [#/Vol] 4.25 10*6/uL Normal 3.60-5.00 [facility] Comment on above: Performed By: #### B MP, CBC #### [address] WBC (Bld) [#/Vol] 5.4 10*3/uL Normal 3.8-11.6 [facility] Comment on above: Performed By: #### B MP, CBC #### [place] [address] [place] Dipstick and Microscopicon 0 11-21-2023 Appearance (U) Clear Normal Clear [facility] Comment on above: Order Comment: Name Collection Type:: Clean-Voided Midstream Performed By: #### B MP, CBC #### [address] Bacteria,Urine None Seen Normal None Seen [facility] Comment on above: Order Comment: Name Collection Type:: Clean-Voided Midstream Performed By: #### B MP, CBC #### [address] Bilirubin,Urine Negative Normal Negative [facility] Comment on above: Order Comment: Name Collection Type:: Clean-Voided Midstream Performed By: #### B MP, CBC #### [address] Color (U) Yellow Normal Yellow [facility] Comment on above: Order Comment: Name Collection Type:: Clean-Voided Midstream Performed By: #### B MP, CBC #### [address] Glucose Ql (U) >=1000 High Normal [facility] Comment on above: Order Comment: Name Collection Type:: Clean-Voided Midstream Performed By: #### B MP, CBC #### [place] [address] [place] Hyaline Casts,Urine None Seen Normal 0-8 [facility] Comment on above: Order Comment: Name Collection Type:: Clean-Voided Midstream Result Comment: PERF ORMED BY: [place] [address] PATHOLOGIST SECURITY ALARM INSTALLER SUNNI CH M.D. Performed By: #### B MP, CBC #### [address] Ketones Ql (U) Negative Normal Negative [facility] Comment on above: Order Comment: Name Collection Type:: Clean-Voided Midstream Performed By: #### B MP, CBC #### [address] Leukocyte esterase Test strip Ql (U) Negative Normal Negative [facility] Comment on above: Order Comment: Name Collection Type:: Clean-Voided Midstream Performed By: #### B MP, CBC #### [place] [address] [place] Nitrite,Urine Negative Normal Negative [facility] Comment on above: Order Comment: Name Collection Type:: Clean-Voided Midstream Performed By: #### B MP, CBC #### [address] Occult Blood,Urine 1+ High Negative [facility] Comment on above: Order Comment: Name Collection Type:: Clean-Voided Midstream Result Comment: PERF ORMED BY: [place] [address] PATHOLOGIST SECURITY ALARM INSTALLER SUNNI CH M.D. Performed By: #### B MP, CBC #### [address] pH (U) 5.5 [pH] Normal 5.0-9.0 [facility] Comment on above: Order Comment: Name Collection Type:: Clean-Voided Midstream Performed By: #### B MP, CBC #### [place] [address] [place] Protein,Urine Negative Normal Negative [facility] Comment on above: Order Comment: Name Collection Type:: Clean-Voided Midstream Performed By: #### B MP, CBC #### [address] RBC,Urine 1-2 Normal 0-4 [facility] Comment on above: Order Comment: Name Collection Type:: Clean-Voided Midstream Performed By: #### B MP, CBC #### [address] Specificy [place],Urine 1.012 Normal 1.001-1.03 0 [facility] Comment on above: Order Comment: Name Collection Type:: Clean-Voided Midstream Performed By: #### B MP, CBC #### [address] Squamous Epithelial Cell,Urine None Seen Normal 0-2 [facility] Comment on above: Order Comment: Name Collection Type:: Clean-Voided Midstream Performed By: #### B MP, CBC #### [address] Urobilinogen,Urine Normal Normal Normal [facility] Comment on above: Order Comment: Name Collection Type:: Clean-Voided Midstream Performed By: #### B MP, CBC #### [address] WBC LM.HPF (Urine sed) [#/Area] 0 /[HPF] Normal 0-4 [facility] Comment on above: Order Comment: Name Collection Type:: Clean-Voided Midstream Performed By: #### B MP, CBC #### [address] ECG 12 lead ECGon 11-21-2023 ECG 12 lead ECG [place] [address] Electrocardiograph Report Signed Patient: Melissa Dubose MR#: [id number] 70 : 1960 Acct:[id number] Age/Sex: 63 / F ADM Date: 11/21/23 Loc: Room: [address] [place] [address] Type: ADM IN Attending Dr: Winter Norris [...] 0 11/21/23 1232 Normal [facility] ECH echo transthoracicon [facility] echo transthoracic [facility] [place] [address] [place] [address] Echocardiogram Signed Patient: Melissa Dubose MR#: [id number] 70 : 1960 Acct:[id number] Age/Sex: 63 / F ADM Date: 11/21/23 Loc: Room: [address] [place] [address] Type: ADM IN Attending Dr: Winter Norris MD Ordering Provider: Karen Mays APRN Date of Service: 11/21/23 [facility] echo transthoracic: nstemi Copies to: MD Karen Treadwell, CARE CONSULTANT Weight: 239 lb Performed By: WILMA Rangel BSA: 2.3 m2 BP: 138/79 mmHg HR: 94 Reason For Study: nstemi History: [place]. HTN. DM. CABG. Former Smoker. Interpretation Summary [...] MD 11/21/23 1116 Normal [facility] Glucose Poct Glucometerson 0 11-21-2023 Commemt1 Normal [facility] Comment on above: Result Comment: Glu2 : WILL NOTIFY DR/RN Performed By: #### P T, PTT #### [address] Commemt2 Cleaned Meter Normal [facility] Comment on above: Performed By: #### P T, PTT #### [facility] [address] Commemt3 Will Repeat Test Normal [facility] Comment on above: Result Comment: PERF ORMED BY: [place] [address] PATHOLOGIST SECURITY ALARM INSTALLER SUNNI CH M.D. Performed By: #### P T, PTT #### [address] Glucose [Mass/Vol] 405 mg/dL Off scale high [facility] Comment on above: Result Comment: [place] Glucose Reference Range is dependent on time and content of last meal. Glucose of more than 200 mg/dL in a nonstressed, ambulatory subject supports the diagnosis of Diabetes Mellitus. Performed By: #### P T, PTT #### [address] Glucose [Mass/Vol] 345 mg/dL Normal [facility] Comment on above: Result Comment: [place] Glucose Reference Range is dependent on time and content of last meal. Glucose of more than 200 mg/dL in a nonstressed, ambulatory subject supports the diagnosis of Diabetes Mellitus. PERFORMED BY: [place] [address] PATHOLOGIST SECURITY ALARM INSTALLER SUNNI CH M.D. Performed By: #### B MP, CBC #### [facility] [address] [place] [address] Glucose [Mass/Vol] 367 mg/dL Normal [facility] Comment on above: Result Comment: [facility] Glucose Reference Range is dependent on time and content of last meal. Glucose of more than 200 mg/dL in a nonstressed, ambulatory subject supports the diagnosis of Diabetes Mellitus. PERFORMED BY: [place] [address] PATHOLOGIST SECURITY ALARM INSTALLER SUNNI CH M.D. Performed By: #### B MP, CBC #### [address] Glucose [Mass/Vol] 281 mg/dL Normal [facility] Comment on above: Result Comment: [facility] Glucose Reference Range is dependent on time and content of last meal. Glucose of more than 200 mg/dL in a nonstressed, ambulatory subject supports the diagnosis of Diabetes Mellitus. PERFORMED BY: [place] [address] PATHOLOGIST SECURITY ALARM INSTALLER SUNNI CH M.D. Performed By: #### B MP, CBC #### [place] [id number] [facility] Glucose mean value [Mass/vol ume] in Blood Estimated from glycated hemoglobinOrdered By: Karen Mays on 11-21-2023 Average glucose Estimated from glycated hemoglobin (Bld) [Mass/Vol] 88 mg/dL [facility] Hemoglobin A1c percentageOrd ered By: Karen Mays on 11-21-2023 HbA1c (Bld) [Mass fraction] 4.7 % 4.3-5.6 [facility] Comment on above: Increased risk for d iabetes: 5.7 - 6.4diabetes: >6.4glycemic control for adults with diabetes: <7.0 Ketones Auto test strip (U) [Mass/Vol]Ordered By: Winter Norris on 11-21-2023 Ketones (U) [Mass/Vol] Negative Negative [facility] Laboratory - UrinalysisOrder ed By: Winter Norris on 11-21-2023 Hyaline casts LM Ql (Urine sed) None seen [LPF] 0-8 [facility] Lactate [Moles/volume] in Se rum or PlasmaOrdered By: Karen Mays on 11-21-2023 Lactate [Moles/Vol] 1.5 mmol/L 0.5-2.2 [facility] Lactic Acidon 11-21-2023 Lactate [Moles/Vol] 1.5 mmol/L Normal 0.5-2.2 [facility] Comment on above: Result Comment: PERF ORMED BY: [place] [address] PATHOLOGIST SECURITY ALARM INSTALLER SUNNI CH M.D. Performed By: #### B MP, CBC #### [facility] [address] [place] [id number] [facility] Lipid Panelon 11-21-2023 Cholesterol [Mass/Vol] 95 mg/dL Low 140-200 [facility] Comment on above: Result Comment: Chol less than 200 mg/dl low risk Chol 201-239 mg/dl borderline risk Chol 240 mg/dl and greater high risk Performed By: #### L IPID, A1C WT eA #### [facility] [address] [place] [id number] [facility] Cholesterol in HDL [Mass/Vol] 29 mg/dL Normal 23-92 [facility] Comment on above: Result Comment: HDL CHOL ATP-III CLASSIFICATION Cardiovascular Risk HDL > or equal to 60 mg/dL LOW HDL < 40 mg/dL HIGH Performed By: #### L IPID, A1C WT eA #### [facility] [address] [place] [id number] [place] Cholesterol.total/Cho lesterol in HDL [Mass ratio] 3.3 {ratio} Normal <5.0 [facility] Comment on above: Result Comment: PERF ORMED BY: [facility] [address] [facility] [place] [address] PATHOLOGIST SECURITY ALARM INSTALLER SUNNI CH M.D. Performed By: #### L IPID, A1C WT eA #### [facility] [address] [place] [id number] [place] LDL Cholesterol,Calculate d 53 mg/dL Normal 0-100 [facility] Comment on above: Result Comment: LDL ATP III CLASSIFICATION LDL less than 100 mg/dL Optimal LDL 100-129 mg/dL Near or above optimal LDL 130-159 mg/dL Borderline high LDL 160-189 mg/dL High LDL greater than 189 mg/dL Very high Performed By: #### L IPID, A1C WT eA #### [address] Triglyceride w/Reflex 63 mg/dL Normal 0-149 [facility] Comment on above: Result Comment: TRIG ATP III CLASSIFICATION TRIG less than 150 mg/dL Normal TRIG 150-199 mg/dL Borderline high TRIG 200-500 mg/dL High TRIG greater than 500 mg/dL Very high Standard traceable to the Center for Disease Conrtrol and Prevention (CDC) test method. Performed By: #### L IPID, A1C WT eA #### [address] VLDL CHOLESTEROL 12 mg/dL Normal [facility] Comment on above: Performed By: #### L IPID, A1C WT eA #### [address] Nitrite Test strip Ql (U)Ord ered By: Winter Norris on 11-21-2023 Nitrite Ql (U) Negative Negative [facility] No Panel InformationOrdered By: Winter Norris on 11-21-2023 Bedside Glucose #2 Comment Cleaned meter [facility] Bedside Glucose #3 Comment Will repeat test [facility] Partial Thromboplastin Timeo n 11-21-2023 aPTT Coag (Bld) [Time] 47.2 s High 25.1-36.5 [facility] Comment on above: Order Comment: List the anticoagulant: HEPARIN, UNFRACTIONATED Result Comment: A he matocrit value greater than 55% may lead to inaccurate results in coagulation testing. Patients having hematocrit values >55% require a special collection tube for coagulation studies. Please contact the laboratory at [phone] for redraw instructions. PERFORMED BY: [place] [address] PATHOLOGIST SECURITY ALARM INSTALLER SUNNI CH M.D. Performed By: #### P TT #### [address] aPTT Coag (Bld) [Time] 152.4 s Off scale high 25.1-36.5 [facility] Comment on above: Order Comment: List the anticoagulant: HEPARIN, UNFRACTIONATED Result Comment: Crit ical value result called at 1511 on 11/21/23 A hematocrit value greater than 55% may lead to inaccurate results in coagulation testing. Patients having hematocrit values >55% require a special collection tube for coagulation studies. Please contact the laboratory at [phone] for redraw instructions. PERFORMED BY: [place] [address] PATHOLOGIST SECURITY ALARM INSTALLER SUNNI CH M.D. Performed By: #### B MP, CBC #### [facility] [address] [place] [address] [place] aPTT Coag (Bld) [Time] s Off scale high 25.1-36.5 [facility] Comment on above: Order Comment: DRAW ALL LABS AT 1015 PER CHARLES COLLINS List the anticoagulant: HEPARIN, UNFRACTIONATED Result Comment: Crit ical value result called at 1152 on 11/21/23 A hematocrit value greater than 55% may lead to inaccurate results in coagulation testing. Patients having hematocrit values >55% require a special collection tube for coagulation studies. Please contact the laboratory at [phone] for redraw instructions. PERFORMED BY: [place] [address] PATHOLOGIST SECURITY ALARM INSTALLER SUNNI CH M.D. Performed By: #### B MP, CBC #### [facility] [address] [place] [address] [place] aPTT Coag (Bld) [Time] 51.3 s High 25.1-36.5 [facility] Comment on above: Result Comment: A he matocrit value greater than 55% may lead to inaccurate results in coagulation testing. Patients having hematocrit values >55% require a special collection tube for coagulation studies. Please contact the laboratory at [phone] for redraw instructions. PERFORMED BY: [address] [address] PATHOLOGIST SECURITY ALARM INSTALLER SUNNI CH M.D. Performed By: #### P T, PTT #### [facility] [address] [place] [address] [facility] Protein Auto test strip (U) [Mass/Vol]Ordered By: Winter Norris on 11-21-2023 Protein (U) [Mass/Vol] Negative Negative [facility] Prothrombin Time INRon 11-20 INR Coag (PPP) [Relative time] 1.4 {INR} Normal [facility] Comment on above: Result Comment: [...] Performed By: #### P T, PTT #### [facility] [address] [place] [id number] [facility] PT Coag (PPP) [Time] 15.6 s High 9.0-12.9 [facility] Comment on above: Result Comment: A he matocrit value greater than 55% may lead to inaccurate results in coagulation testing. Patients having hematocrit values >55% require a special collection tube for coagulation studies. Please contact the laboratory at [phone] for redraw instructions. Performed By: #### P T, PTT #### [facility] [address] [place] [id number] [facility] Serum or plasma high density lipoprotein (HDL) cholesterol measurementOrdered By: Karen Mays on 11-21-2023 Cholesterol in HDL [Mass/Vol] 29 mg/dL 23-92 [facility] Comment on above: HDL CHOL ATP-III CLA SSIFICATION Cardiovascular RiskHDL > or equal to 60 mg/dL LOWHDL < 40 mg/dL HIGH Serum or plasma total choles terol/high density lipoprotein (HDL) cholesterol mass ratOrdered By: Karen Mays on 11-21-2023 Cholesterol.total/Cho lesterol in HDL [Mass ratio] 3.3 {ratio} <5.0 [facility] Specific gravity Auto test s trip (U) [Rel density]Ordered By: Winter Norris on 11-21-2023 Specific gravity (U) [Rel density] 1.012 1.001-1.03 0 [facility] Squamous epithelial cells de tection in urine sediment by light microscopyOrdered By: Winter Norris on 11-21-2023 Epithelial cells.squamous LM Ql (Urine sed) None seen [HPF] 0-2 [facility] Triglyceride [Mass/volume] i n Serum or PlasmaOrdered By: Karen Mays on 11-21-2023 Triglyceride [Mass/Vol] 63 mg/dL 0-149 [facility] Comment on above: TRIG ATP III CLASSIF ICATIONTRIG less than 150 mg/dL NormalTRIG 150-199 mg/dL Borderline highTRIG 200-500 mg/dL High TRIG greater than 500 mg/dL Very highStandard traceable to the Center for Disease Conrtrol and Prevention (CDC) test method. Troponin I High Sensitivityo n 11-21-2023 Troponin I High Sensitivity 70.7 pg/mL Off scale high 0.0-15.0 [facility] Comment on above: Order Comment: DRAW ALL LABS AT 1015 PER RN DENNIS Result Comment: Crit ical Result : Called to and read back by: DENNIS CAMPBELL at: 11/21/2023 11:29:54 by:SAMINA PERFORMED BY: [place] [address] PATHOLOGIST SECURITY ALARM INSTALLER SUNNI CH M.D. Performed By: #### B MP, CBC #### [facility] [address] [place] [address] Troponin I High Sensitivity 75.8 pg/mL Off scale high 0.0-15.0 [facility] Comment on above: Order Comment: 0607 draw Result Comment: Crit ical Result : Called to and read back by: JEREMY ESTRADA at: 11/21/2023 07:30:30 by:[id number] PERFORMED BY: [place] [address] PATHOLOGIST SECURITY ALARM INSTALLER SUNNI CH M.D. Performed By: #### H S TROP #### [facility] [address] [place] [address] Troponin I High Sensitivity 85.3 pg/mL Off scale high 0.0-15.0 [facility] Comment on above: Result Comment: Crit ical Result : Called to and read back by: ALBER ONEILL at: 11/21/2023 05:03:43 by:[id number] PERFORMED BY: [place] [address] PATHOLOGIST SECURITY ALARM INSTALLER SUNNI CH M.D. Performed By: #### H S TROP #### [address] Troponin I.cardiac [Mass/vol ume] in Serum or Plasma by Detection limit <= 0.01 ng/Ordered By: Karen Mays on 11-21-2023 Troponin I.cardiac DL <= 0.01 ng/mL [Mass/Vol] 70.7 pg/mL 0.0-15.0 [facility] Comment on above: Critical Result : Ca lled to and read back by: DENNIS CAMPBELL at: 11/21/2023 11:29:54 by:SAMINA Urine bacteria detection by automated methodOrdered By: Winter Norris on 11-21-2023 Bacteria Auto Ql (U) None seen None Seen [facility] Urine clarity by refractomet ry automatedOrdered By: Winter Norris on 11-21-2023 Clarity Refractometry automated (U) Clear Clear [facility] Urine glucose measurement by automated test strip (mass/volume)Ordered By: Winter Norris on 11-21-2023 Glucose Auto test strip (U) [Mass/Vol] >=1000 mg/dL Normal [facility] Urine hemoglobin detection b y automated test stripOrdered By: Winter Norris on 11-21-2023 Hemoglobin Auto test strip Ql (U) 1+ Negative [facility] Urine leukocyte esterase det ection by automated test stripOrdered By: Winter Norris on 11-21-2023 Leukocyte esterase Auto test strip Ql (U) Negative Negative [facility] Urobilinogen Auto test strip (U) [Mass/Vol]Ordered By: Winter Norris on 11-21-2023 Urobilinogen (U) [Mass/Vol] Normal mg/dL Normal [facility] XR chest 1V portableon 11-[address] [facility] [place] [address] [place] [address] XRay Report Signed Patient: Melissa Dubose MR#: [id number] 70 : 1960 Acct:[id number] Age/Sex: 63 / F ADM Date: 11/21/23 Loc: Room: [address] [place] [address] Type: ADM IN Attending Dr: Winter Norris [...] Orville Oliver M.D.11/21/2023 5:01 PM Dictation Location: [place] [address] Transcribed By: [facility] 11/21/23 1701 Dictated By: Orville Oliver II, MD 11/21/23 1658 Signed By: 11/21/23 1701 Normal [facility] pH Auto test strip (U)Ordere d By: Winter Norris on 11-21-2023 pH (U) 5.5 [pH] 5.0-9.0 [facility] CBC AUTO DIFFon 01-23-2023 BASO # 0.0 103/ul Normal 0.0-0.1 [facility] Comment on above: Performed By: #### I VINCE #### [facility] [address] [place] [address] [address] Chi Keith Basophils/100 WBC (Bld) 0.4 % Normal 0.2-2.0 [facility] Comment on above: Performed By: #### I VINCE #### [facility] [address] [place] [address] Dr. Chi Keith EO # 0.1 103/ul Normal 0.0-0.7 [facility] Comment on above: Performed By: #### I VINCE #### [facility] [address] [place] [address] Dr. Chi Keith Eosinophils/100 WBC (Bld) 1.9 % Normal 0.9-7.0 [facility] Comment on above: Performed By: #### I VINCE #### [facility] [address] [place] [address] Dr. Chi Keith Erythrocyte distribution width (RBC) [Ratio] 13.9 % Normal 11.0-15.0 [facility] Comment on above: Performed By: #### I VINCE #### [facility] [address] [place] [address] Dr. Chi Keith Hematocrit (Bld) [Volume fraction] 40.5 % Normal 36.0-48.0 [facility] Comment on above: Performed By: #### I VINCE #### [facility] [address] [place] [address] Dr. Chi Keith Hemoglobin (Bld) [Mass/Vol] 12.9 g/dL Normal 12.0-16.0 [facility] Comment on above: Performed By: #### I VINCE #### [facility] [address] [place] [address] Dr. Chi Keith IG # 0.02 10e3/ul Normal 0.00-0.03 [facility] Comment on above: Performed By: #### I VINCE #### [facility] [address] [place] [address] Dr. Chi Keith IG % 0.3 % Normal 0.0-0.5 [facility] Comment on above: Performed By: #### I VINCE #### [facility] [address] [place] [address] Dr. Chi Keith LYMPH # 1.4 103/ul Normal 1.2-3.8 [facility] Comment on above: Performed By: #### I VINCE #### [facility] [address] [place] [address] Dr. Chi Keith Lymphocytes/100 WBC (Bld) 18.7 % Critically low 20.5-60.0 [facility] Comment on above: Performed By: #### I VINCE #### [facility] [address] [place] [address] Dr. Chi Keith MANUAL DIFF REQ NO Normal [facility] Comment on above: Performed By: #### I VINCE #### [facility] [address] [place] [address] Dr. Chi Keith MCH (RBC) [Entitic mass] 29.7 pg Normal 26.7-34.0 [facility] Comment on above: Performed By: #### I VINCE #### [facility] [address] [place] [address] Dr. Chi Keith MCHC (RBC) [Mass/Vol] 31.9 g/dL Normal 29.9-35.2 [facility] Comment on above: Performed By: #### I VINCE #### [facility] [address] [place] [address] Dr. Chi Keith MCV (RBC) [Entitic vol] 93.1 fL Normal 81.0-99.0 [facility] Comment on above: Performed By: #### I VINCE #### [facility] [address] [place] [address] Dr. Chi Keith MONO # 0.5 103/ul Normal 0.3-0.8 [facility] Comment on above: Performed By: #### I VINCE #### [facility] [address] [place] [address] Dr. Chi Keith Monocytes/100 WBC (Bld) 6.4 % Normal 1.7-12.0 [facility] Comment on above: Performed By: #### I VINCE #### [facility] [address] [place] [address] Dr. Cih Keith NEUT # 5.4 103/ul Normal 1.4-6.5 [facility] Comment on above: Performed By: #### I VINCE #### [facility] [address] [place] [address] Dr. Chi Keith Neutrophils/100 WBC (Bld) 72.3 % Normal 43.0-75.0 [facility] Comment on above: Performed By: #### I VINCE #### [facility] [address] [place] [address] Dr. Chi Keith Platelet mean volume (Bld) [Entitic vol] 10.1 fL Normal 9.5-13.5 [facility] Comment on above: Performed By: #### I VINCE #### [facility] [address] [place] [address] Dr. Chi Keith PLT 271 103/ul Normal 150-450 [facility] Comment on above: Performed By: #### I VINCE #### [facility] [address] [place] [address] Dr. Chi Keith RBC 4.35 106/ul Normal 4.20-5.40 [facility] Comment on above: Performed By: #### I VINCE #### [facility] [address] [place] [address] Dr. Chi Keith WBC 7.5 103/ul Normal 4.0-11.0 [facility] Comment on above: Performed By: #### I VINCE #### [facility] [address] [place] [address] Dr. Chi Keith FREE THYROXINE INDEX T7on FTI 3.94 Normal 1.30-4.50 [facility] Comment on above: Performed By: #### T 7, LIPID, TSH, CMP #### [facility] [address] [place] [address] Dr. Chi Keith T3U 31.0 % Normal 30.0-39.0 [facility] Comment on above: Performed By: #### T 7, LIPID, TSH, CMP #### [facility] [address] [place] [address] Dr. Chi Keith T4 [Mass/Vol] 12.70 ug/dL Normal 4.80-13.90 [facility] Comment on above: Performed By: #### T 7, LIPID, TSH, CMP #### [facility] [address] [place] [address] Dr. Chi Keith GLYCOHEMOGLOBIN A1Con 2022 ADA RECOMMENDATION SEE BELOW Normal [facility] Comment on above: Result Comment: ADA RECOMMENDED LIMIT 4.0 - 6.0 ADA THERAPEUTIC TARGET < 7.0 ACTION SUGGESTED > 7.0 Performed By: #### A 1C #### [facility] [address] [place] [address] Dr. Chi Keith Glucose [Mass/Vol] 120 mg/dL Normal [facility] Comment on above: Performed By: #### A 1C #### [facility] [address] [place] [address] Dr. Chi Keith HbA1c (Bld) [Mass fraction] 5.8 % Normal 4.5-6.2 [facility] Comment on above: Performed By: #### A 1C #### [facility] [address] [place] [address] Dr. Chi Keith IRONon 01-23-2023 Iron [Mass/Vol] 109.0 ug/dL Normal 50.0-170.0 [facility] Comment on above: Performed By: #### I VINCE #### [facility] [address] [place] [address] Dr. Chi Keith LIPID PROFILEon 01-23-2023 CHOL-HDL RATIO NORM SEE BELOW Normal [facility] Comment on above: Result Comment: 3.3 - 4.4 LOW RISK 4.4 - 7.1 AVERAGE RISK 7.1 - 11.0 MODERATE RISK >11.0 HIGH RISK Performed By: #### T 7, LIPID, TSH, CMP #### [facility] [address] [place] [address] Dr. Chi Keith Cholesterol [Mass/Vol] 209 mg/dL Critically high <=200 [facility] Comment on above: Performed By: #### T 7, LIPID, TSH, CMP #### [facility] [address] [place] [address] Dr. Chi Keith Cholesterol in HDL [Mass/Vol] 41 mg/dL Normal 40-60 [facility] Comment on above: Performed By: #### T 7, LIPID, TSH, CMP #### [facility] [address] [address] [address] Chi Keith Cholesterol in LDL [Mass/Vol] 135.0 mg/dL Normal [facility] Comment on above: Performed By: #### T 7, LIPID, TSH, CMP #### [facility] [address] [address] [address] Chi Keith Cholesterol.total/Cho lesterol in HDL [Mass ratio] 5.1 {ratio} Normal [facility] Comment on above: Performed By: #### T 7, LIPID, TSH, CMP #### [facility] [address] [address] [address] Chi Keith HDL NORMAL > or = 60 mg/dl - LO W CARDIOVASCULAR RISK <40 mg/dl - HIGH CARDIOVASCULAR RISK Normal [facility] Comment on above: Performed By: #### T 7, LIPID, TSH, CMP #### [facility] [address] [address] [address] Chi Keith LDL CALC NORMAL SEE BELOW Normal [facility] Comment on above: Result Comment: <100 mg/dl OPTIMAL 100 - 129 mg/dl NEAR OR ABOVE OPTIMAL 130 - 159 mg/dl BORDERLINE HIGH 160 - 189 mg/dl HIGH >190 mg/dl VERY HIGH Performed By: #### T 7, LIPID, TSH, CMP #### [facility] [address] [place] [address] Dr. Chi Keith Triglyceride [Mass/Vol] 165 mg/dL Critically high <=150 [facility] Comment on above: Performed By: #### T 7, LIPID, TSH, CMP #### [facility] [address] [address] [address] Chi Keith VLDL CALC 33.0 mg/dL Normal [facility] Comment on above: Performed By: #### T 7, LIPID, TSH, CMP #### [facility] [address] [address] [address] Chi Keith PROF 14(COMP METB)on 023 Albumin [Mass/Vol] 3.1 g/dL Critically low 3.4-5.0 [facility] Comment on above: Performed By: #### T 7, LIPID, TSH, CMP #### [facility] [address] [address] [address] Chi Keith Albumin/Globulin [Mass ratio] 0.8 {ratio} Normal [facility] Comment on above: Performed By: #### T 7, LIPID, TSH, CMP #### [facility] [address] [address] [address] Chi Keith ALP [Catalytic activity/Vol] 86 U/L Normal 46-116 [facility] Comment on above: Performed By: #### T 7, LIPID, TSH, CMP #### [facility] [address] [place] [address] Dr. Chi Keith ALT [Catalytic activity/Vol] 35 U/L Normal 14-59 [facility] Comment on above: Performed By: #### T 7, LIPID, TSH, CMP #### [facility] [address] [place] [address] Dr. Chi Keith Anion gap [Moles/Vol] 13.9 mmol/L Normal [facility] Comment on above: Performed By: #### T 7, LIPID, TSH, CMP #### [facility] [address] [place] [address] Dr. Chi Keith AST [Catalytic activity/Vol] 29 U/L Normal 15-37 [facility] Comment on above: Performed By: #### T 7, LIPID, TSH, CMP #### [facility] [address] [place] [address] Dr. Chi Keith Bilirubin [Mass/Vol] 0.6 mg/dL Normal 0.2-1.0 [facility] Comment on above: Performed By: #### T 7, LIPID, TSH, CMP #### [facility] [address] [place] [address] Dr. Chi Keith Calcium [Mass/Vol] 9.7 mg/dL Normal 8.5-10.1 [facility] Comment on above: Performed By: #### T 7, LIPID, TSH, CMP #### [facility] [address] [place] [address] Dr. Chi Keith Chloride [Moles/Vol] 106 mmol/L Normal 98-107 [facility] Comment on above: Performed By: #### T 7, LIPID, TSH, CMP #### [facility] [address] [address] [address] Chi Keith CO2 [Moles/Vol] 28.1 mmol/L Normal 21.0-32.0 [facility] Comment on above: Performed By: #### T 7, LIPID, TSH, CMP #### [facility] [address] [place] [address] Dr. Chi Keith Creatinine [Mass/Vol] 1.33 mg/dL Critically high 0.55-1.02 [facility] Comment on above: Performed By: #### T 7, LIPID, TSH, CMP #### [facility] [address] [place] [address] Dr. Chi Keith EGFR-AF TAJIK 49 mL/min/1.73m2 Critically low >=60 [facility] Comment on above: Performed By: #### T 7, LIPID, TSH, CMP #### [facility] [address] [place] [address] Dr. Chi Keith EGFR-NON AF TAJIK 41 mL/min/1.73m2 Critically low >=60 [facility] Comment on above: Performed By: #### T 7, LIPID, TSH, CMP #### [facility] [address] [place] [address] Dr. hCi Keith Globulin (S) [Mass/Vol] 3.8 g/dL Normal [facility] Comment on above: Performed By: #### T 7, LIPID, TSH, CMP #### [facility] [address] [place] [address] Dr. Chi Keith Glucose [Mass/Vol] 116 mg/dL Critically high 74-106 [facility] Comment on above: Performed By: #### T 7, LIPID, TSH, CMP #### [facility] [address] [place] [address] Dr. Chi Keith Potassium [Moles/Vol] 4.0 mmol/L Normal 3.5-5.1 [facility] Comment on above: Performed By: #### T 7, LIPID, TSH, CMP #### [facility] [address] [place] [address] Dr. Chi Keith Protein [Mass/Vol] 6.9 g/dL Normal 6.4-8.2 [facility] Comment on above: Performed By: #### T 7, LIPID, TSH, CMP #### [facility] [address] [place] [address] Dr. Chi Keith Sodium [Moles/Vol] 144 mmol/L Normal 136-145 [facility] Comment on above: Performed By: #### T 7, LIPID, TSH, CMP #### [facility] [address] [place] [address] Dr. Chi Keith Urea nitrogen [Mass/Vol] 20.0 mg/dL Critically high 7.0-18.0 [facility] Comment on above: Performed By: #### T 7, LIPID, TSH, CMP #### [facility] [address] [place] [address] Dr. Chi Keith Urea nitrogen/Creatinine [Mass ratio] 15.0 mg/mg Normal [facility] Comment on above: Performed By: #### T 7, LIPID, TSH, CMP #### [facility] [address] [place] [address] Dr. Chi Keith TSHon 01-23-2023 TSH 0.995 uIU/mL Normal 0.358-3.74 0 [facility] Comment on above: Performed By: #### T 7, LIPID, TSH, CMP #### [facility] [address] [place] [address] Dr. Chi Keith [facility]on SARS-CoV-2 (COVID-19) RNA ALEXANDREA+probe Ql (Unsp spec) Detected Critically abnormal NOT DETECTED [facility] Comment on above: Result Comment: This test is not yet approved or cleared by the [place] FDA. When there are no FDA-approved or cleared tests available, and other criteria are met, FDA can make tests available under an emergency access mechanism called an Emergency Use Authorization (EUA). The EUA for this test is supported by the [place] of Health and Human Service's declaration that [...] used). Performed By: #### I VINCE #### [facility] [address] [place] [address] Dr. Chi Keith INFLUENZA A AND B AGon 08-13 INFLUENZA A AG Negative Normal NEGATIVE SEE COMMENT [facility] Comment on above: Performed By: #### I VINCE #### [facility] [address] [place] [address] Dr. Chi Keith INFLUENZA B AG Negative Normal NEGATIVE SEE COMMENT [facility] Comment on above: Performed By: #### I VINCE #### [facility] [address] [place] [address] Dr. Chi Keith INTERNAL CONTROLS Within Normal Limits Normal Wi thin Normal Limits [facility] Comment on above: Performed By: #### I VINCE #### [facility] [address] [place] [address] Dr. Chi Keith CARDIAC [place] ADMITon 022 CK [Catalytic activity/Vol] 34 U/L Normal 26-192 [facility] Comment on above: Performed By: #### I VINCE #### [facility] [address] [place] [address] Dr. Chi Keith CK.MB [Mass/Vol] 0.71 ng/mL Normal <=3.60 [facility] Comment on above: Performed By: #### I VINCE #### [facility] [address] [place] [address] Dr. Chi Keith HSTROP 11.6 pg/mL Normal 4.0-51.3 [facility] Comment on above: Result Comment: CUT- OFF POINTS HAVE BEEN ESTABLISHED BASED ON THE FOURTH UNIVERSAL DEFINITIONS OF MYOCARDIAL INFARCTION. THE UPPER REFERENCE LIMIT (URL) OF TROPONIN, DEFINED THE 99TH PERCENTILE OF cTnI DISTRIBUTION IN A REFERENCE POPULATION, HAS BEEN CONFIRMED THE DECISION THRESHOLD FOR [place] DIAGNOSIS. Performed By: #### I VINCE #### [facility] [address] [address] [address] Chi Keith FAUSTO 57 ng/mL Normal 9-82 [facility] Comment on above: Performed By: #### I VINCE #### [facility] [address] [address] [address] Chi Keith CBC AUTO DIFFon 04-09-2022 BASO # 0.0 103/ul Normal 0.0-0.1 [facility] Comment on above: Performed By: #### I VINCE #### [facility] [address] [place] [address] Dr. Chi Keith Basophils/100 WBC (Bld) 0.4 % Normal 0.2-2.0 [facility] Comment on above: Performed By: #### I VINCE #### [facility] [address] [place] [address] Dr. Chi Keith EO # 0.1 103/ul Normal 0.0-0.7 [facility] Comment on above: Performed By: #### I VINCE #### [facility] [address] [place] [address] Dr. Chi Keith Eosinophils/100 WBC (Bld) 0.7 % Critically low 0.9-7.0 [facility] Comment on above: Performed By: #### I VINCE #### [facility] [address] [place] [address] Dr. Chi Keith Erythrocyte distribution width (RBC) [Ratio] 14.5 % Normal 11.0-15.0 [facility] Comment on above: Performed By: #### I VINCE #### [facility] [address] [place] [address] Dr. Chi Keith Hematocrit (Bld) [Volume fraction] 42.1 % Normal 36.0-48.0 [facility] Comment on above: Performed By: #### I VINCE #### [facility] [address] [place] [address] Dr. Chi Keith Hemoglobin (Bld) [Mass/Vol] 13.5 g/dL Normal 12.0-16.0 [facility] Comment on above: Performed By: #### I VINCE #### [facility] [address] [place] [address] Dr. Chi Keith IG # 0.03 10e3/ul Normal 0.00-0.03 [facility] Comment on above: Performed By: #### I VINCE #### [facility] [address] [place] [address] Dr. Chi Keith IG % 0.3 % Normal 0.0-0.5 [facility] Comment on above: Performed By: #### I VINCE #### [facility] [address] [place] [address] Dr. Chi Keith LYMPH # 1.8 103/ul Normal 1.2-3.8 [facility] Comment on above: Performed By: #### I VINCE #### [facility] [address] [place] [address] Dr. Chi Keith Lymphocytes/100 WBC (Bld) 18.3 % Critically low 20.5-60.0 [facility] Comment on above: Performed By: #### I VINCE #### [facility] [address] [place] [address] Dr. Chi Keith MANUAL DIFF REQ NO Normal [facility] Comment on above: Performed By: #### I VINCE #### [facility] [address] [place] [address] Dr. Chi Keith MCH (RBC) [Entitic mass] 30.5 pg Normal 26.7-34.0 [facility] Comment on above: Performed By: #### I VINCE #### [facility] [address] [place] [address] Dr. Chi Keith MCHC (RBC) [Mass/Vol] 32.1 g/dL Normal 29.9-35.2 [facility] Comment on above: Performed By: #### I VINCE #### [facility] [address] [place] [address] Dr. Chi Keith MCV (RBC) [Entitic vol] 95.2 fL Normal 81.0-99.0 [facility] Comment on above: Performed By: #### I VINCE #### [facility] [address] [place] [address] Dr. Chi Keith MONO # 0.6 103/ul Normal 0.3-0.8 [facility] Comment on above: Performed By: #### I VINCE #### [facility] [address] [place] [address] Dr. Chi Keith Monocytes/100 WBC (Bld) 6.3 % Normal 1.7-12.0 [facility] Comment on above: Performed By: #### I VINCE #### [facility] [address] [place] [address] Dr. Chi Keith NEUT # 7.5 103/ul Critically high 1.4-6.5 [facility] Comment on above: Performed By: #### I VINCE #### [facility] [address] [place] [address] Dr. Chi Keith Neutrophils/100 WBC (Bld) 74.0 % Normal 43.0-75.0 [facility] Comment on above: Performed By: #### I VINCE #### [facility] [address] [place] [address] Dr. Chi Keith Platelet mean volume (Bld) [Entitic vol] 9.3 fL Critically low 9.5-13.5 [facility] Comment on above: Performed By: #### I VINCE #### [facility] [address] [place] [address] Dr. Chi Keith PLT 316 103/ul Normal 150-450 [facility] Comment on above: Performed By: #### I VINCE #### [facility] [address] [place] [address] Dr. Chi Keith RBC 4.42 106/ul Normal 4.20-5.40 [facility] Comment on above: Performed By: #### I VINCE #### [facility] [address] [place] [address] Dr. Chi Keith WBC 10.1 103/ul Normal 4.0-11.0 [facility] Comment on above: Performed By: #### I VINCE #### [facility] [address] [place] [address] FACIAL BONES WO [...] by: SUNIL THOMPSON Date: 2022-04-09 15:58 Normal [facility] CT HEAD WO CONon 04-09-2022 CT HEAD [...] SUNIL THOMPSON Date: 2022-04-09 15:51 Normal [facility] ER URINE PROFILEon 2 Bilirubin Ql (U) MODERATE Abnormal NEGATIVE [facility] Comment on above: Performed By: #### I VINCE #### [facility] [address] [place] [address] Dr. Chi Keith Clarity (U) CLEAR Normal CLEAR [facility] Comment on above: Performed By: #### I VINCE #### [facility] [address] [place] [address] Dr. Chi Keith Color (U) DK. YELLOW Normal YELLOW [facility] Comment on above: Performed By: #### I VINCE #### [facility] [address] [place] [address] Dr. Chi BARRY A micrscopic examina tion will be performed if indicated. Normal [facility] Comment on above: Performed By: #### I VINCE #### [facility] [address] [place] [address] Dr. Chi Keith Glucose Ql (U) Negative Normal NEGATIVE [facility] Comment on above: Performed By: #### I VINCE #### [facility] [address] [place] [address] Dr. Chi Keith Hemoglobin Ql (U) TRACE-INTACT Abnormal NEGATIVE [facility] Comment on above: Performed By: #### I VINCE #### [facility] [address] [place] [address] Dr. Chi Keith Ketones Ql (U) 15 mg/dl Abnormal NEGATIVE [facility] Comment on above: Performed By: #### I VINCE #### [facility] [address] [place] [address] Dr. Chi Keith LEUKOCYTES Negative Normal NEGATIVE [facility] Comment on above: Performed By: #### I VINCE #### [facility] [address] [place] [address] Dr. Chi Keith Nitrite Ql (U) Negative Normal NEGATIVE [facility] Comment on above: Performed By: #### I VINCE #### [facility] [address] [place] [address] Dr. Chi Keith pH (U) 5.5 [pH] Normal 5-9 [facility] Comment on above: Performed By: #### I VINCE #### [facility] [address] [place] [address] Dr. Chi Keith Protein (U) [Mass/Vol] 30 mg/dL Abnormal NEGATIVE/ TRACE [facility] Comment on above: Performed By: #### I VINCE #### [facility] [address] [place] [address] Dr. Chi Keith SPEC GRAVITY >=1.030 Abnormal 1.005-<=1. 025 [facility] Comment on above: Performed By: #### I VINCE #### [facility] [address] [place] [address] Dr. Chi Keith UR MICRO IND INDICATED Normal [facility] Comment on above: Performed By: #### I VINCE #### [facility] [address] [place] [address] Dr. Chi Keith Urobilinogen Qn (U) 1.0 {Mani'U}/dL Normal 0.2 - 1. 0 [facility] Comment on above: Performed By: #### I VINCE #### [facility] [address] [place] [address] Dr. Chi Keith PROF 14(COMP METB)on 022 Albumin [Mass/Vol] 3.3 g/dL Critically low 3.4-5.0 [facility] Comment on above: Performed By: #### C MELISSA CMP, TSH #### [facility] [address] [place] [address] Dr. Chi Keith Albumin/Globulin [Mass ratio] 0.9 {ratio} Normal [facility] Comment on above: Performed By: #### C MELISSA CMP, TSH #### [facility] [address] [place] [address] Dr. Chi Keith ALP [Catalytic activity/Vol] 87 U/L Normal 46-116 [facility] Comment on above: Performed By: #### C MELISSA CMP, TSH #### [facility] [address] [address] [address] Chi Keith ALT [Catalytic activity/Vol] 34 U/L Normal 14-59 [facility] Comment on above: Performed By: #### C THERESE TORRES, TSH #### [facility] [address] [place] [address] Dr. Chi Keith Anion gap [Moles/Vol] 12.2 mmol/L Normal [facility] Comment on above: Performed By: #### C MELISSA CMP, TSH #### [facility] [address] [place] [address] Dr. Chi Keith AST [Catalytic activity/Vol] 16 U/L Normal 15-37 [facility] Comment on above: Performed By: #### C THERESE TORRES, TSH #### [facility] [address] [place] [address] Dr. Chi Keith Bilirubin [Mass/Vol] 0.6 mg/dL Normal 0.2-1.0 [facility] Comment on above: Performed By: #### C MELISSA CMP, TSH #### [facility] [address] [place] [address] Dr. Chi Keith Calcium [Mass/Vol] 9.8 mg/dL Normal 8.5-10.1 [facility] Comment on above: Performed By: #### C MELISSA CMP, TSH #### [facility] [address] [place] [address] Dr. Chi Keith Chloride [Moles/Vol] 106 mmol/L Normal 98-107 [facility] Comment on above: Performed By: #### C MADVictor Hugo, CMP, TSH #### [facility] [address] [place] [address] Dr. Chi Keith CO2 [Moles/Vol] 27.9 mmol/L Normal 21.0-32.0 [facility] Comment on above: Performed By: #### C MADVictor Hugo CMP, TSH #### [facility] [address] [place] [address] Dr. Chi Keith Creatinine [Mass/Vol] 1.13 mg/dL Critically high 0.55-1.02 [facility] Comment on above: Performed By: #### C MADM, CMP, TSH #### [facility] [address] [address] [address] Chi Keith EGFR-AF TAJIK =60 Normal >=60 [facility] Comment on above: Performed By: #### C MADM, CMP, TSH #### [facility] [address] [address] [address] Chi Keith EGFR-NON AF TAJIK 49 mL/min/1.73m2 Critically low >=60 [facility] Comment on above: Performed By: #### C MADM, CMP, TSH #### [facility] [address] [address] [address] Chi Keith Globulin (S) [Mass/Vol] 3.8 g/dL Normal [facility] Comment on above: Performed By: #### C MADM, CMP, TSH #### [facility] [address] [address] [address] Chi Keith Glucose [Mass/Vol] 115 mg/dL Critically high 74-106 [facility] Comment on above: Performed By: #### C MADM, CMP, TSH #### [facility] [address] [address] [address] Chi Keith Potassium [Moles/Vol] 4.1 mmol/L Normal 3.5-5.1 [facility] Comment on above: Performed By: #### C MADM, CMP, TSH #### [facility] [address] [address] [address] Chi Keith Protein [Mass/Vol] 7.1 g/dL Normal 6.4-8.2 [facility] Comment on above: Performed By: #### C MADM, CMP, TSH #### [facility] [address] [place] [address] Dr. Chi Keith Sodium [Moles/Vol] 142 mmol/L Normal 136-145 [facility] Comment on above: Performed By: #### C MADM, CMP, TSH #### [facility] [address] [address] [address] Chi Keith Urea nitrogen [Mass/Vol] 21.0 mg/dL Critically high 7.0-18.0 [facility] Comment on above: Performed By: #### C THERESE TORRES, TSH #### [facility] [address] [place] [address] Dr. Chi Keith Urea nitrogen/Creatinine [Mass ratio] 18.6 mg/mg Normal [facility] Comment on above: Performed By: #### C THERESE TORRES, TSH #### [facility] [address] [place] [address] Dr. Chi Keith PROTIMEon 04-09-2022 INR Coag (PPP) [Relative time] 0.97 {INR} Normal [facility] Comment on above: Performed By: #### I VINCE #### [facility] [address] [place] [address] Dr. Chi Keith INR GUIDELINES SEE BELOW Normal [facility] Comment on above: Result Comment: LISA RED INR: 2.0 - 3.0 CONDITIONS NOT LISTED BELOW 2.5 - 3.5 FOR PROSTHETIC HEART VALVE REPLACEMENT 2.5 - 3.5 RECURRENT THROMBOSIS Performed By: #### I VINCE #### [facility] [address] [place] [address] Dr. Chi Keith PT Coag (PPP) [Time] 10.5 s Normal 9.0-11.6 [facility] Comment on above: Performed By: #### I VINCE #### [facility] [address] [place] [address] Dr. Cih Keith PTTon 04-09-2022 aPTT Coag (Bld) [Time] 23.1 s Normal 22.3-36.2 [facility] Comment on above: Performed By: #### I VINCE #### [facility] [address] [place] [address] Dr. Chi Keith TSHon 04-09-2022 TSH 0.511 uIU/mL Normal 0.358-3.74 0 [facility] Comment on above: Performed By: #### C THERESE TORRES, TSH #### [facility] [address] [place] [address] Dr. Chi Keith URINE MICROSCOPIC ONLYon BACTERIA TRACE Abnormal NONE SEEN [facility] Comment on above: Performed By: #### I VINCE #### [facility] [address] [place] [address] Dr. Chi Keith Bacteria identified Cx Nom (U) NOT INDICATED Normal [facility] Comment on above: Performed By: #### I VINCE #### [facility] [address] [place] [address] Dr. Chi Keith CAST SEEN Abnormal NONE SEEN [facility] Comment on above: Performed By: #### I VINCE #### [facility] [address] [place] [address] Dr. Chi Keith Crystals LM Nom (Urine sed) NONE SEEN Normal NONE SEEN [facility] Comment on above: Performed By: #### I VINCE #### [facility] [address] [place] [address] Dr. Chi Keith Epithelial cells LM Ql (Urine sed) FEW Abnormal NONE SEEN /RARE [facility] Comment on above: Performed By: #### I VINCE #### [facility] [address] [place] [address] Dr. Chi Keith HYALINE CAST RARE Normal [facility] Comment on above: Performed By: #### I VINCE #### [facility] [address] [place] [address] Dr. Chi Keith MUCOUS SMALL Abnormal NONE SEEN [facility] Comment on above: Performed By: #### I VINCE #### [facility] [address] [place] [address] Dr. Chi Keith RBC 2-5 Abnormal 0-2 [facility] Comment on above: Performed By: #### I VINCE #### [facility] [address] [place] [address] Dr. Chi Keith WBC 0-2 Abnormal NONE SEEN [facility] Comment on above: Performed By: #### I VINCE #### [facility] [address] [place] [address] Dr. Chi Keith Cardiovascular Lab Reporton 05-11-2017 Cardiovascular Lab Report [facility] Patient Name: Melissa Dubose MR #: [id number] [place] [address] Physician: Justine Grimes M.D.Department of Service Date: 05/10/2017Medicine Birthdate: [birth year]Division of Room #: [facility]Services[facility] donaldo [id number], [place] [address]Jvory Fax Cardiovascular Laboratory ReportINDICATION:Melissa Dubose is a [...] She signedinformed consent. She was brought to laboratory geneticist in a fasting state. Theright groin area was prepped and draped in usual fashion. Usingmicropuncture technique, the right common femoral artery was accessed. Theinner cannula was advanced. Limited right femoral angiography wasperformed followed by upsizing to a 6-Paraguayan x 11 cm sheath. Bilateralselective renal angiography was then performed using 6-Paraguayan JL4 and HT5eezjapumev catheters. The 6-Paraguayan JR4 diagnostic catheter was used toselectively engage the saphenous venous graft to the OM and the radialgraft to the PDA. Angiography was performed. Catheter was exchanged to a6-Paraguayan CYNTHIA catheter, which was used to selectively [...] 05/10/2017/01:01 P/Justine Grimes M.D.Date Trans: 05/11/2017 09:53 A/Charleen_JN:[id number]: Madison Mccormack M.D. [place] [id number] [facility] Daryl Hammond [facility] [id number] Normal [facility] Vital Signs Date Time Vital Sign Value Performing Clinician Viviane headley 06-02-2024 13:56-0400 Diastolic blood pressure 78 mm[Hg] Ashley Tariq [facility] 06-02-2024 13:56-0400 Heart rate 56 /min Ashley Orzech [facility] 06-02-2024 13:56-0400 Respiratory rate 16 /min Ashley Orzech [facility] 06-02-2024 13:56-0400 Systolic blood pressure 126 mm[Hg] Ashley Orzech [facility] 11-25-2023 11:01-0400 Body temperature 97.7 [degF] MD Madison Mccormack Work Phone: [facility] 11-25-2023 11:01-0400 Diastolic blood pressure 65 mm[Hg] MD Madison Mccormack Work Phone: [facility] 11-25-2023 11:01-0400 Heart rate 90 /min MD Madison Mccormack Work Phone: [facility] 11-25-2023 11:01-0400 Respiratory rate 16 /min MD Madison Mccormack Work Phone: [facility] 11-25-2023 11:01-0400 SaO2% (BldA) [Mass fraction] 97 % MD Madison Mccormack Work Phone: [facility] 11-25-2023 11:01-0400 Systolic blood pressure 108 mm[Hg] MD Madison Mccormack Work Phone: [facility] 11-25-2023 06:00-0400 Body weight 103 kg MD Madison Mccormack Work Phone: [facility] 11-24-2023 20:00-0400 Inhaled oxygen flow rate 2 L/min MD Madison Mccormack Work Phone: [facility] 11-21-2023 14:58-0400 Body height 177.8 cm MD Madison Mccormack Work Phone: [facility] Encounters Encounter Date Encounter Type Care Provider Facility Start: 08-20-2024 [facility] :SANDRA Garcia Start: 06-02-2024 End: 06-02-2024 ambulatory Ashley X Orzech Facility:[facility] Start: 06-02-2024 End: 06-02-2024 Lab Drop off Ashley X Orzech [facility] Start: 06-02-2024 End: 06-02-2024 ambulatory Ashley X Orzech Facility:SANDRA Atkins Start: 06-02-2024 End: 06-02-2024 Patient encounter procedure Ashley X Orzech [facility] Start: 05-01-2024 End: 05-01-2024 ambulatory [facility] Start: 04-01-2024 ambulatory Ashley Orzech Facility: SANDRA Vivas Start: 02-19-2024 End: 02-19-2024 ambulatory [facility] Start: 01-17-2024 ambulatory [facility] Start: 01-17-2024 End: 01-17-2024 ambulatory [facility] Start: 12-27-2023 ambulatory [facility] Start: 12-11-2023 End: 12-11-2023 ambulatory [facility] Start: 11-21-2023 End: 11-25-2023 Evaluation and management of inpatient Jaimie Mischler Facility:[facility] Start: 11-21-2023 Non-patient / Non-visit MD Umesh Mccormack Work Phone: [facility] Work Phone: Start: 11-21-2023 End: 11-25-2023 Evaluation and management of inpatient MD Madison Mccormack Work Phone: [facility] Work Phone: Start: 01-23-2023 End: 01-24-[address] MADISON MCCORMACK . Facility: Start: 08-13-2022 End: 08-13-[address] MADISON MCCORMACK . Facility: Start: 04-09-2022 End: 04-09-2022 ambulatory MYKE CANTU . Facility: Start: 05-10-2017 End: 05-11-2017 Ambulatory PROVIDER UNKNOWN Facility:[facility] Start: 05-07-2017 End: 05-08-2017 Ambulatory DEFAULT PHYSICIAN Facility:[facility] Procedures Date Procedure Procedure Detail [...] Date Care Activity Detail Author Start: 11-25-2023 [facility] Start: 11-21-2023 Hospital admission [facility] Start: 11-21-2023 Referral to Audio Video Repairer [facility] Patient Education Atrial Fibrill ation (DC) Heart Failure, Adult (DC) Flu, Adult (DC) Going Home on Blood [facility] Work Phone: Patient referral [facility] Work Phone: Immunizations Immunization Date Immunization Notes Care Provider Fa jamilah 06-06-2023 influenza virus vacc ine, unspecified formulation Ashley Orzech [facility] 03-28-2022 SARS-CoV-2 mRNA (apovnxlhsrl-ysir-lnwraf e) vaccine Ashley Orzech [facility] 06-16-2021 influenza virus vacc ine, unspecified formulation Ashley Orzech [facility] 06-16-2021 SARS-CoV-2 (COVID-19 ) mRNA BNT-162b2 vax Ashley Orzech [facility] 12-08-2020 SARS-CoV-2 (COVID-19 ) mRNA BNT-162b2 vax Ashley Orzech [facility] 11-17-2020 SARS-CoV-2 (COVID-19 ) mRNA BNT-162b2 vax Ashley Orzech [facility] 06-22-2020 influenza virus vacc ine, unspecified formulation Ashley Orzech [facility] 06-22-2020 pneumococcal polysaccharide vaccine, 23 valent Ashley Orzech [facility] 07-31-2019 influenza virus vacc ine, unspecified formulation Ashley Orzech [facility] 07-28-2018 influenza virus vacc ine, unspecified formulation Ashley Orzech [facility] 06-21-2017 influenza, unspecifi ed formulation Ashley OrRoombeats [facility] 05-08-2016 influenza virus vacc ine, unspecified formulation Ashley OrRoombeats [facility] 06-08-2015 influenza virus vacc ine, unspecified formulation [place] OrRoombeats [facility] Payers Date Payer Category Payer Self-pay 2020 Medicare [id number] 1960 Unknown [id number] 2.16.84 [id number] 1960 Unknown [id number] 2.16.84 [id number] 1960 Unknown [id number] 2.16.84 [id number] 1960 Unknown [id number] 2.16.8 [id number] 1960 Unknown [id number] 2.16.8 [id number] 1960 Unknown [id number] 2.16.8 [id number] 1957 Medicare [id number] Medicare [id number] Unknown Unknown [facility] [id number] Unknown [id number] 2.16.8 [id number] Social History Date Type Detail Facility Start: 11-22-2023 End: 06-02-2024 Tobacco smoking status NHIS Ex-smoker (finding) [facility] Start: 1960 Sex Assigned At Female F [facility] Tobacco smoking status Never [facility] Sex Assigned At Female [facility] Goals Date Patient Goal Desired Activity /State Functional Status Date Assessment Result Facility 06-02-2024 Functional Status N/A [facility] 11-25-2023 Functional status Patient at Baseline [facility] Work Phone: Mental Status Date Assessment Result Facility 11-25-2023 Cognitive function Cognitive Sta tus Patient at [facility] Work Phone: Clinical Notes 11-21-2023 to 06-02-2024 [...] Follow these instructions at home: Medicines Take aana-fsn-tknyoiw and prescription medicines only as told by [...] or the blood stops without treatment. Take levb-egi-stkpquc and prescription medicines only as told by your health care provider. Drink enough fluid to keep your urine pale yellow. This information is not intended to replace advice given to you by your health care provider. Make sure you discuss any questions you have with your health care provider. Document Revised: 04/26/2021 Document Reviewed: 04/26/2021 [employer] Patient Education 2023 [employer]. 06/02/2024 14:44:31 Dietary Guidelines to Help Prevent [...] include: ?8 oz (237 mL) of milk, iffosum-vxrtemhvokey-amtvc milk, and calcium-fortifiedfruit juice. Calcium-fortified means that [...] ?Spinach (cooked), rhubarb, beets, sweet potatoes, and Latvian chard. ?Peanuts. ?Potato chips, burkinan fries, and baked potatoes with skin on. ?Nuts and nut products. ?Chocolate. If you regularly take a diuretic medicine, make sure to eat at least 1 or 2 servings of fruits or vegetables that are high in potassium each day. These include: ?Avocado. ?Banana. ?Sabine, prune, carrot, or tomato juice. ?Baked potato. [...] magnesium, fish oil, or vitamin B6. Take phsu-lyu-gyuouna and prescription medicines only as told by [...] Casseroles. Pizza. Lasagna. Frozen meals. Potato chips. Paraguayan fries. The items listed above may not [...] provider. Document Revised: 12/06/2022 Document Reviewed: 12/06/2022 [employer] Patient Education 2023 [employer]. Follow Up Care 04/30/2024 14:04:54 With:SHANNAN HO, Benjy P, URL Address: [facility] JUANITO Heath [address] [place], [place] [id number]- When: Unknown Comments:cysto [facility] 06-02-2024 Note Patient Education Nephrology Dietary [...] ? 8 oz (237 mL) of milk, cqdlggo-cggiaqhmxbka-lwpcg milk, and calcium-fortifiedfruit juice. Calcium-fortified means that [...] Spinach (cooked), rhubarb, beets, sweet potatoes, and Latvian chard. ? Peanuts. ? Potato chips, burkinan fries, and baked potatoes with skin on. ? Nuts and nut products. ? Chocolate. ? If you regularly take a diuretic medicine, make sure to eat at least 1 or 2 servings of fruits or vegetables that are high in potassium each day. These include: ? Avocado. ? Banana. ? Sabine, prune, carrot, or tomato juice. ? Baked [...] fish oil, or vitamin B6. ? Take yhwu-gqb-ubjugud and prescription medicines only as told by your health care provider. These include suppleme (more content not included)... [facility] 06-02-2024 Evaluation + Plan note Diagnostic Tests PendingUrine Cytology ([facility]) 06/02/24 [facility] 05-01-2024 Note [place] [facility] Subjective Melissa Dubose is a [...] Myocardial injury NSTEMI (non-ST elevated myocardial infarction) ([facility]) S/P CABG (coronary artery bypass graft) Shortness [...] ventricular response. She underwent cardiac catheterization at [facility] which showed patent bypass grafts. She [...] Allergen Reactions Oxycodone-Gilbert (more content not included)... [facility] 02-19-2024 Note [facility] Note Reason for cardiology consult: Patient here for follow up MALGORZATA/DCCV on 01/17/[address] Ria Schneider. Chief Complaint: Itching HPI: Melsisa Dubose is a 63 y.o. female with [...] ventricular response. She underwent cardiac catheterization at [facility] which showed patent bypass grafts. She [...] Global left v (more content not included)... [facility] 01-17-2024 Note Attestation signed by Ria [...] No hemodynamic complications noted. 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 year [...] ventricular response. She underwent cardiac catheterization at [facility] which showed patent bypass grafts. She [...] T wave abn (more content not included)... [facility] 12-11-2023 Note Cardiovascular Medic [facility] SUBJECTIVE Chief Complaint Patient presents with [...] a.fib with RVR -Tx to [facility] -> cardiac cath showed grafts were widely [...] 12/25/2017: Most recently she was admitted to [facility] with uncontrolled BP and chest pain [...] on exertion and (more content not included)... [facility] 11-25-2023 Discharge summary Note Date/Time November 25, 2023 1:11pm [facility] [address] [place] [address] Discharge Summary Signed Patient: Melissa Dubose MR#: [id number] : 1960 Acct:[id number] Age/Sex: 63 / F Adm Date: 4 Loc: Room: [address] [place] [address]: Johnny Bernal MD Copies to: [...] who presented to the emergency department at [place] [facility] with chest pain, shortness of breath, [...] will befollowed by her PCP and her fusing line inspector. Time Spent with Patient Time spent providing/coordinating [...] Low-Cholesterol Additional Instructions: DISCHARGE INSTRUCTIONS FOR CARDIAC TOOL DESIGNER APPRENTICE PROCEDURE: Heart Cath The following instructions have [...] cold, numb, blue or white, call the fusing line inspector immediately. 4. ACTIVITY: You are advised to [...] bottle, follow the instructions on the bottle. [facility] is not responsible for incorrect prescription information [...] tablet 1 tab PO Q12HR Follow Up: [facility] [Provider Group] - 12/11/23 11:00 [...] signed by Johnny Bernal MD> 11/25/[address] [facility] Work Phone: 1(510) 387-617403-17-2024 Progress note Author Winter Norris [facility] November 24, 2023 10:00am Note Date/Time November 24, 2023 9:[address] [facility] [address] [place] [address] Hospitalist Progress Note Signed Patient: Melissa Dubose MR#: [id number] : 1960 Acct:[id number] Age/Sex: 63 / F Adm Date: 4 Loc: Room: [address] [place] [address] Type: ADM IN Attending Dr: Winter Norris [...] 86% on room air upon arrival to [facility] emergency room, 4 L nasal cannula applied [...] PT/OT. Documented By: Winter Norris MD 11/24/23 7250 Signed By: <Electronically signed by iWnter Norris MD> 11/24/[address] [facility] Work Phone: 1(715) 138-268203-16-2024 Progress note Author Justine Kristyanantolivia [facility] November 23, 2023 1:38pm Note Date/Time November 23, 2023 1:[address] [facility] [address] [place], [place] [id number] Cardiology Progress Note Signed Patient: Melissa Dubose MR#: [id number] : 1960 Acct:[id number] Age/Sex: 63 / F Adm Date: 4 Loc: 4 Room: [address] [place] [address] Type: ADM IN Attending Dr: Winter Norris [...] % (Auto) 72.7 Lymph % (Auto) 17.7 [place] % (Auto) 9.5 Eos % (Auto) 0.0 Baso % (Auto) 0.1 Nucleat RBC Rel Count 0.1 Neut # (Auto) 7.0 Lymph # (Auto) 1.7 [place] # (Auto) 0.9 H Eos # (Auto) [...] MPV Neut % (Auto) Lymph % (Auto) [place] % (Auto) Eos % (Auto) Baso % (Auto) Nucleat RBC Rel Count Neut # (Auto) Lymph # (Auto) [place] # (Auto) Eos # (Auto) Baso # [...] bypass graft (4) Coronary artery disease involving eastern shoshone coronary artery of eastern shoshone heart without angina pectoris: Code(s): I25.10 - Atherosclerotic heart disease of eastern shoshone coronary artery without angina pectoris (5) Myocardial injury: Code(s): I5A - Non-ischemic myocardial injury (non-traumatic) Plan # Admitted for cough and SOB 2/2 Influenza A infection # Mild acute HF in setting of HFrEF due to dilated ischemic cardiomyopathy - NYHA II, ACC C. # Moderate to severe MR # Paroxysmal nonvalvular Atrial fibrillation - Rate controlled. [id number] = 5. # Non-ACS troponin elevation due to myocardial injury - Secondary to influenza and mild acute heart failure. # CAD s/p 3v CABG (done ~2013) - No angina. [facility] this admission shows patent grafts. # Other: T2DM, HTN. Echo 11/21/23 - EF 25%, severe LV dilation, severely dilated LA, moderately dilated RA, moderate to severe MR, mild TR, RVSP 60 mmHg consistent with severe pulmonary hypertension, moderately dilated IVC, PFO by color Doppler. C 11/22/23 - Severe eastern shoshone coronary artery disease with patent grafts BALLESTEROS [...] up with her primarycardiologist Dr. Dukes at [facility] in 1-2 weeks. Documented By: Justine Jacobo MD 11/07 03/02 1327 Signed By: <Electronically signed by Justine Jacobo MD> 11/23/[address] [facility] Work Phone: 1(888) 361-183103-16-2024 Progress note Author Winter Norris [facility] November 23, 2023 10:04am Note Date/Time November 23, 2023 9:[address] [facility] [address] [place] [address] Hospitalist Progress Note Signed Patient: Melissa Dubose MR#: [id number] : 1960 Acct:[id number] Age/Sex: 63 / F Adm Date: 4 Loc: 4 Room: [id number] Type: ADM IN Attending Dr: Winter Norris [...] 86% on room air upon arrival to [facility] emergency room, 4 L nasal cannula applied [...] <Electronically signed by Winter Norris MD> 11/23/[address] [facility] Work Phone: 1(748) 239-211003-15-2024 Progress note Author Jayne Vallecillo [facility] November 22, 2023 3:26pm Note Date/Time November 22, 2023 3:[address] [facility] [address] [place] [address] Cardiology Progress Note Signed Patient: Melissa Dubose MR#: [id number] : 1960 Acct:[id number] Age/Sex: 63 / F Adm Date: 4 Loc: Room: [address] [place] [address] Type: ADM IN Attending Dr: Winter Norris [...] MPV Neut % (Auto) Lymph % (Auto) [place] % (Auto) Eos % (Auto) Baso % (Auto) Nucleat RBC Rel Count Neut # (Auto) Lymph # (Auto) [place] # (Auto) Eos # (Auto) Baso # (Auto) PT INR APTT 152.4 H* 47.2 H PHA Creatinine Clear Sodium Potassium Chloride Carbon Dioxide Anion Gap BUN Creatinine Est GFR (CKD-EPI) POC Glucose 345 POC Glucose Comment Urine Color Urine Appearance Urine pH Ur Specific Rincon Urine Protein Urine Glucose (UA) Urine Ketones Urine Occult Blood Urine Nitrite Urine Bilirubin Urine Urobilinogen Ur Leukocyte Esterase Urine RBC Urine WBC Ur Squamous Epith Cells Urine Bacteria Hyaline Casts 11/21/23 11/21/23 11/21/23 18:15 20:45 20:45 Corrected WBC Uncorrected WBC Count RBC Hgb Hct MCV MCH MCHC RDW Plt Count MPV Neut % (Auto) Lymph % (Auto) [place] % (Auto) Eos % (Auto) Baso % (Auto) Nucleat RBC Rel Count Neut # (Auto) Lymph # (Auto) [place] # (Auto) Eos # (Auto) Baso # (Auto) PT INR APTT PHA Creatinine Clear Sodium Potassium Chloride Carbon Dioxide Anion Gap BUN Creatinine Est GFR (CKD-EPI) POC Glucose 405 H* POC Glucose Comment Cleaned meter Urine Color Yellow Urine Appearance Clear Urine pH 5.5 Ur Specific Rincon 1.012 Urine Protein Negative Urine Glucose (UA) [...] % (Auto) 81.3 Lymph % (Auto) 10.0 [place] % (Auto) 8.6 Eos % (Auto) 0.0 Baso % (Auto) 0.1 Nucleat RBC Rel Count 0.1 Neut # (Auto) 5.3 Lymph # (Auto) 0.6 L [place] # (Auto) 0.6 Eos # (Auto) 0.0 Baso # (Auto) 0.0 PT 14.0 H INR 1.2 APTT 27.6 PHA Creatinine Clear 68.56 Sodium 138 Potassium 4.7 Chloride 103 Carbon Dioxide 28.3 Anion Gap 11.4 BUN 24 Creatinine 1.15 Est GFR (CKD-EPI) 54.198 POC Glucose 354 POC Glucose Comment Will repeat test Urine Color Urine Appearance Urine pH Ur Specific Rincon Urine Protein Urine Glucose (UA) Urine Ketones Urine Occult Blood Urine Nitrite Urine Bilirubin Urine Urobilinogen Ur Leukocyte Esterase Urine RBC Urine WBC Ur Squamous Epith Cells Urine Bacteria Hyaline Casts 11/22/23 11:31 Corrected WBC Uncorrected WBC Count RBC Hgb Hct MCV MCH MCHC RDW Plt Count MPV Neut % (Auto) Lymph % (Auto) [place] % (Auto) Eos % (Auto) Baso % (Auto) Nucleat RBC Rel Count Neut # (Auto) Lymph # (Auto) [place] # (Auto) Eos # (Auto) Baso # (Auto) PT INR APTT PHA Creatinine Clear Sodium Potassium Chloride Carbon Dioxide Anion Gap BUN Creatinine Est GFR (CKD-EPI) POC Glucose 181 POC Glucose Comment Urine Color Urine Appearance Urine pH Ur Specific Rincon Urine Protein Urine Glucose (UA) Urine Ketones [...] bypass graft (4) Coronary artery disease involving eastern shoshone coronary artery of eastern shoshone heart without angina pectoris: Code(s): I25.10 - Atherosclerotic heart disease of eastern shoshone coronary artery without angina pectoris (5) Myocardial injury: Code(s): I5A - Non-ischemic myocardial injury (non-traumatic) Plan # Mild acute HF in setting of newly diagnosed HFrEF due to undefined cardiomyopathy # Dilated ischemic cardiomyopathy EF 25% # Moderate to severe MR # Atrial fibrillation [id number] = 5 # Influenza A infection # [...] Recommendations: - LHC completed today shows severe eastern shoshone coronary artery disease with patent grafts BALLESTEROS to LAD; SVG to OM1-OM2 and SVG to RCA. - Continue diuresis with Lasix 40mg IV BID. LVEDP elevated at 20mmHg. - Afib is rate controlled. Continue Eliquis 5mg BID. - GDMT: Metoprolol, Entresto Aldactone. Start Jardiance tomorrow if renal function stable. - Will follow. Documented By: Jayne Vallecillo MD 11/22/23 6694 Signed By: <Electronically signed by Jayne Vallecillo MD> 11/22/[address] [facility] Work Phone: 1(534) 361-508703-15-2024 Consult note Author W Devang [facility] November 22, 2023 2:25pm Note Date/Time November 22, 2023 2:[address] [facility] [address] [place] [address] Cardiology Consult Note Signed Patient: Melissa Dubose MR#: [id number] : 1960 Acct:[id number] Age/Sex: 63 / F Adm Date: 4 Loc: Room: [address] [place] [address] Type: ADM IN Attending Dr: Winter Norris [...] had bypass surgery in 2013 at [facility], routinely follows with Dr. Grimes. [...] in LV function specifically evaluate graft and eastern shoshone and coronary anatomy for treatable targets. Review of Systems Review of Systems All other systems reviewed & are negative unless noted below or in HPI Constitutional Constitutional: Reports as per HPI, Reports fatigue and Reports weakness Cardiovascular Cardiovascular: Reports chest pain at rest, Reports dyspnea and Reports orthopnea Respiratory Respiratory: Reports as per HPI [facility] Medical History Myocardial infarction Hypertension Diabetes Surgical History History of back surgery Hx of CABG 3 vessel at [facility] Family History Mother Diabetes Paternal [...] Lymph # (Auto) 0.6 L (1.00-4.8) x10E3/uL [place] # (Auto) 0.6 (0.0-0.8) x10E3/uL Eos # [...] bypass graft (4) Coronary artery disease involving eastern shoshone coronary artery of eastern shoshone heart without angina pectoris: Code(s): I25.10 - Atherosclerotic heart disease of eastern shoshone coronary artery without angina pectoris (5) Myocardial injury: Code(s): I5A - Non-ischemic myocardial injury (non-traumatic) Plan Proceed with left heart catheterization plus minus revascularization Documented By: Hernan Siddiqi DO 11/22/23 141 Signed By: <Electronically signed by Hernan Siddiqi DO> 11/22/[address] [facility] Work Phone: 1(269) 737-798003-15-2024 [facility] Progress note Author Winter Norris [facility] November 22, 2023 10:05am Note Date/Time November 22, 2023 10: 01am [facility] [address] [place] [address] Hospitalist Progress Note Signed Patient: Melissa Dubose MR#: [id number] : 1960 Acct:[id number] Age/Sex: 63 / F Adm Date: 4 Loc: Room: [address] [place] [address] Type: ADM IN Attending Dr: Winter Norris [...] Syringe IV-PUSH 11/20/24 05:59 Not Given QSHIFT [facility] Sodium Chloride 0 ml 11/21/23 15:48 Sodium [...] 86% on room air upon arrival to [facility] emergency room, 4 L nasal cannula applied [...] signed by Winter Norris MD> 11/22/[address] [facility] Work Phone: 1(493) 138-525303-14-2024 Consult note Author Justine Jacobo [facility] November 21, 2023 4:39pm Note Date/Time November 21, 2023 3:[address] [facility] [address] [place] [address] Cardiology Consult Note Signed Patient: Melissa Dubose MR#: [id number] : 1960 Acct:[id number] Age/Sex: 63 / F Adm Date: 4 Loc: Room: [address] [place] [address] Type: ADM IN Attending Dr: Winter Norris MD Copies to: MD Justine West MD Mazhar Rahman, MD~ Cardiology HPI History of Present Illness Consult Date: 11/21/23 HPI: Ms. Dubose is a 63 year old female with the PMH below ike presented to the [place] ER for chest pain, SOB, cough and [...] bleeding, ecchymosis. Skin: Denies rashes, pruritus. [facility] Medical History Myocardial infarction Hypertension Diabetes Surgical History History of back surgery Hx of CABG 3 vessel at [facility] Family History Mother Diabetes Paternal [...] Lymph # (Auto) 0.3 L (1.00-4.8) x10E3/uL [place] # (Auto) 0.1 (0.0-0.8) x10E3/uL Eos # [...] bypass graft (4) Coronary artery disease involving eastern [place] coronary artery of [place] heart without angina pectoris: Code(s): I25.10 - Atherosclerotic heart disease of eastern [place] coronary artery without angina pectoris (5) Myocardial [...] <Electronically signed by Justine Jacobo MD> 11/21/23 [facility] Work Phone: 1(755) 979-505103-14-2024 Progress note Author Winter Norris [facility] November 21, 2023 12:12pm Note Date/Time November 21, 2023 12: 09pm [facility] [address] [place] [address] Event Note Signed Patient: Melissa Dubose MR#: [id number] : 1960 Acct:[id number] Age/Sex: 63 / F Adm Date: 4 Loc: Room: [address] [place] [address] Type: ADM IN Attending Dr: Winter Norris [...] signed by Winter Norris MD> 11/21/[address] [facility] Work Phone: 1(788) 303-236403-14-2024 History and physical note Author Isaac Greenwood [facility] November 21, 2023 5:31am Note Date/Time November 21, 2023 3:[address] [facility] [address] [place] [address] Hospitalist H&P Signed Patient: Melissa Dubose MR#: [id number] : 1960 Acct:[id number] Age/Sex: 63 / F Adm Date: 4 Loc: Room: [address] [place] [address] Type: ADM IN Attending Dr: Isaac Greenwood DO Copies to: MD Karen West APRN Shawn J Warner, DO~ HPI DATE OF EXAMINATION: 11/21/23 CHIEF COMPLAINT: Chest pain, sob, N/V/D, fever, cough HISTORY OF PRESENT ILLNESS: Ms. Dubose is a 63-year-old female that presented to the [facility] emergency room for complaints of chest pain, [...] CABG-3 vessel, T2DM, HTN. EKG at [facility] emergency room shows A-fib with RVR. She [...] Solu-Medrol, Zofran Tamiflu. She follows with [facility] cardiology however they had no beds available. She agreed to transfer to the closest facility which is [facility]. Patient was transferred here to the progressive floor under the care of hospitalist team. Review of Systems Review of Systems Review of systems: A 10 point review of systems was obtained, negative unless noted in the HPI or below. [facility] Medical History (Updated 11/21/23 @ 03:40 by Karen Mays APRN) Myocardial infarction Hypertension Diabetes Surgical History (Updated 11/21/23 @ 03:31 by Karen Mays APRN) History of back surgery Hx of CABG 3 vessel at [facility] Family History (Updated 11/21/23 @ [...] 86% on room air upon arrival to [facility] emergency room, 4 L nasal cannula applied [...] signed by Isaac Greenwood DO> 11/21/[address] [facility] Work Phone: Evaluation + Plan note No data available for this section [facility] evaluation note* Diagnosis Onset Date Resolution Status Acute hypoxic respiratory failure acute Atrial fibrillation acute Chest pain acute [id number] acute Diabetes acute Headache acute HFrEF (heart failure with reduced ejection fraction) acute Hypertension acute Influenza A acute Myocardial injury acute NSTEMI (non-ST elevated myocardial infarction) acute S/P CABG (coronary artery bypass graft) acute Shortness of breath acute [facility] Work Phone: Hospital Discharge instructions No data available for this section [facility] Progress note No data available for this section [facility] Summary Purpose Family History No Family [...] respir atory failure Atrial fibrillation Chest pain [id number] Diabetes Headache HFrEF (heart failure with reduced ejection fraction) Hypertension Influenza A Myocardial injury NSTEMI (non-ST elevated myocardial infarction) S/P CABG (coronary artery bypass graft) Shortness of breath Additional Source Comments INFORMATION SOURCE (unrecogn ized section and content) DATE CREATED AUTHOR 03/05/2018 [facility] DATE CREATED AUTHOR AUTHOR'S ORGANIZ ATION 01/24/2023 [facility] [place] DATE CREATED AUTHOR AUTHOR'S ORGANIZ ATION 12/18/2023 [facility] DATE CREATED AUTHOR AUTHOR'S ORGANIZ ATION 05/03/2024 [facility] DATE CREATED AUTHOR AUTHOR'S ORGANIZ ATION 06/04/2024 [facility] DATE CREATED AUTHOR AUTHOR'S ORGANIZ ATION 06/14/2024 [facility] Care Teams (unrecognized sec tion and content) [...] BE BASED ON THE PRIMARY CLINICAL RECORDS. [facility] [employer] [facility]. provides no warranty or guarantee of the accuracy or completeness of information in this document.
[2024-07-29 14:11] LABS: Carbon Dioxide 25.9 mmol/L (21.0-32.0); Chloride 97 mmol/L (98-107); Estimated GFR (African America 47 (>=60 mL/min/1.73m^2); Estimated GFR (Non-African Ame 39 (>=60 mL/min/1.73m^2); Potassium 4.9 mmol/L (3.5-5.1); Sodium 132 mmol/L (136-145)
[2024-07-29 14:25] LABS: Glucose 640 mg/dL (74-106)
== END 2024-07-29 13:10 | disposition home or self-care (01) ==
LOC: LAB 13:11
PROVIDERS: PCP Family Medicine; Visit Provider Internal Medicine Interventional Cardiology
DX: I50.22 Chronic systolic (congestive) heart failure (principal)
CPT/HCPCS: 36415; 80048

== ENCOUNTER 2024-08-11 13:40 | Outpatient (OUT) | payer MEDICARE, SELFPAY ==
--- NOTE | 2024-08-11 13:48 | CA_ITS ---
Patient Name: KAYLA HEATH MR#: [id number] : 1960 Exam Date: 08/11/2024 Ordering Doctor: DR JUSTINE PARKS M.D. ECHOCARDIOGRAM REPORT PROCEDURE: CA ECHO W/ CON INDICATIONS: Chronic systolic congestive heart failure COMPARISON: None. DESCRIPTION: COMPLETE ECHOCARDIOGRAM Real-time transthoracic echocardiography with 2D, M-mode, spectral and color flow Doppler performed. QUALITY: Lumason contrast was administered due to suboptimal imaging for left ventricular opacification to improve delineation of endocardial boarders. LEFT VENTRICLE: Normal chamber size. Moderate concentric left ventricular hypertrophy. Systolic function is difficult to assess but appears moderately reduced. LV EF: Moderately reduced left ventricular ejection fraction, (35%). DIASTOLIC: ATRIAL SEPTUM: LEFT ATRIUM: Mild dilatation. RIGHT ATRIUM: Normal chamber size. RIGHT VENTRICLE: Normal chamber size. Normal right ventricular systolic function. TRICUSPID VALVE: Normal mobility and thickness. No stenosis with trivial regurgitation. No evidence of pulmonary hypertension. RVSP 20 mmHg MITRAL VALVE: Mildly thickened with normal mobility. No evidence of mitral valve stenosis. There is no mitral annular calcification. Trivial mitral regurgitation. AORTIC VALVE: Normal trileaflet appearance. No visible sclerosis. Normal leaflet mobility. No evidence of aortic valve stenosis. No aortic regurgitation. AORTIC ROOT: Normal diameter and appearance. PULMONIC VALVE: Normal thickness and mobility. No stenosis. Trivial regurgitation. PERICARDIUM: No evidence of pericardial effusion. IVC: Collapses with inspirations. Normal size. PLEURA: CONCLUSION: 1. The left ventricle is normal in size and exhibits moderate concentric hypertrophy. Systolic function is difficult to assess but appears moderately reduced. Estimated LVEF is 35%. 2. Normal right ventricular size and systolic function. 3. No significant valvular dysfunction. 4. Normal right-sided pressures. Adult Echocardiography Procedure Report Left Ventricle LVEDD (3.7 - 5.6 cm): 4.95 cm LVESD (2.2 - 4.0 cm): 4.13 cm LVIVS thickness (0.6 - 1.2 cm): 1.58 cm LVPW thickness (0.5 - 1.0 cm): 1.73 cm e': 0.05 m/s E - e': 9.10 LVOT Max Gradient: 2.23 mm[Hg] LVOT Area (cm2): 0.75 m/s Peak Velocity (LVOT): 0.75 m/s Mean Velocity (LVOT): 0.51 m/s LVOT Diameter 1.95 cm Left Ventricular Ejection Fraction: 35 % Left Atrium LA Volume Index (2D A2C): 25.62 ml/m2 Left Atrium Systolic Dimension: 4.25 cm Mitral Valve MV E to A Ratio: 0.69 Mitral Valve A-Wave Peak Velocity: 0.65 m/s Mitral Valve E-Wave Peak Velocity: 0.45 m/s Right Ventricle RV Internal Diastolic Dimension: 3.57 cm Aorta AO Root Diam: 3.30 cm Ascending Ao Diam: 3.44 cm Aortic Valve AoV Area (Peak Liam): 2.05 cm2, 2.05 cm2 AoV Area (VTI): 1.91 cm2, 1.91 cm2 Peak Velocity(Antegrade Flow): 1.09 m/s Peak Gradient(Antegrade Flow): 4.73 mm[Hg] Mean Velocity(Antegrade Flow): 0.75 m/s Mean Gradient(Antegrade Flow): 2.58 mm[Hg] Velocity Time Integral: 19.30 cm Tricuspid Valve Peak Velocity (Regurgitant Flow): 2.04 m/s, 1.80 m/s Pulmonic Valve Peak Velocity: 0.85 m/s Peak Gradient: 3.36 mm[Hg], 2.49 mm[Hg] Right Atrium Right Atrium Systolic Pressure: 52.73 ml, 52.73 ml Dictated by: Justine Parks M.D. on 08/11/2024 at 21:07 Approved by: Justine Parks M.D. on 08/11/2024 at 21:14
[2024-08-11] MEDS: SULFUR HEXAFLUORIDE MICROSPHR 25 MG/5 ML VIAL IV (15:05)
== END 2024-08-11 13:41 | disposition home or self-care (01) ==
LOC: CARD 13:41
PROVIDERS: PCP Family Medicine; Visit Provider Internal Medicine Interventional Cardiology
DX: I50.22 Chronic systolic (congestive) heart failure (principal)
CPT/HCPCS: C8929; Q9950

== ENCOUNTER 2024-09-04 14:11 | Outpatient (OUT) | payer MEDICARE, SELFPAY ==
[2024-09-04 14:25] LABS: Basophils Absolute Auto 0.1 10^3/uL (0.0-0.1); Basophils Percent Auto 0.6 % (0.2-2.0); Eosinophils Absolute Auto 0.1 10^3/uL (0.0-0.7); Hematocrit 46.7 % (36.0-48.0); Hemoglobin 14.9 g/dL (12.0-16.0); Immature Granulocytes Abs Auto 0.02 10^3/uL (0.00-0.03); Immature Granulocytes Pct Auto 0.2 % (0.0-0.5); Lymphocytes Percent Auto 21.9 % (20.5-60.0); Mean Corpuscular HGB Conc 31.9 g/dL (29.9-35.2); Mean Corpuscular Hemoglobin 30.6 pg (26.7-34.0); Mean Corpuscular Volume 95.9 fL (81.0-99.0); Mean Platelet Volume 9.3 fL (9.5-13.5); Monocytes Absolute Auto 0.7 10^3/uL (0.3-0.8); Monocytes Percent Auto 7.5 % (1.7-12.0); Neutrophils Absolute Auto 6.1 10^3/uL (1.4-6.5); Neutrophils Percent Auto 68.8 % (43.0-75.0); Platelet Count 238 10^3/uL (150-450); Red Blood Count 4.87 10^6/uL (4.20-5.40); Red Cell Distribution Width 13.4 % (11.0-15.0); White Blood Count 8.9 10^3/uL (4.0-11.0)
[2024-09-04 14:51] LABS: Anion Gap 10.8; BUN Creatinine Ratio 15.9; Calcium 9.6 mg/dL (8.5-10.1); Carbon Dioxide 27.2 mmol/L (21.0-32.0); Chloride 106 mmol/L (98-107); Estimated GFR (African America >60 (>=60 mL/min/1.73m^2); Estimated GFR (Non-African Ame 52 (>=60 mL/min/1.73m^2); Glucose 202 mg/dL (74-106); Sodium 140 mmol/L (136-145)
== END 2024-09-04 14:12 | disposition home or self-care (01) ==
LOC: LAB 14:12
PROVIDERS: PCP Family Medicine; Visit Provider Internal Medicine Interventional Cardiology
DX: I50.22 Chronic systolic (congestive) heart failure (principal)
CPT/HCPCS: 36415; 80048; 85025

== ENCOUNTER 2024-11-11 13:17 | Outpatient (OUT) | payer MEDICARE, SELFPAY ==
--- NOTE | 2024-11-11 13:30 | CA_ITS ---
Patient Name: KAYLA HEATH MR#: [id number] : 1960 Exam Date: 11/11/2024 Ordering Doctor: DR JUSTINE PARKS M.D. ECHOCARDIOGRAM REPORT PROCEDURE: CA ECHO W/ CON INDICATIONS: Chronic systolic congestive heart failure, CABG COMPARISON: None. DESCRIPTION: COMPLETE ECHOCARDIOGRAM Real-time transthoracic echocardiography with 2D, M-mode, spectral and color flow Doppler performed. QUALITY: Lumason contrast was administered due to suboptimal imaging for left ventricular opacification to improve delineation of endocardial boarders. LEFT VENTRICLE: Normal chamber size. Mild concentric left ventricular hypertrophy. Systolic function is at the lower limits of normal. Calculated left ventricular ejection fraction is 53% LV EF: Lower limits of normal left ventricular ejection fraction, (50-55%). DIASTOLIC: ATRIAL SEPTUM: Visually appears intact. LEFT ATRIUM: Normal chamber size. RIGHT ATRIUM: Normal chamber size. RIGHT VENTRICLE: Normal chamber size. Normal systolic function. TRICUSPID VALVE: Normal mobility and thickness. No stenosis with trivial regurgitation. Doppler studies reveal mildly (35-45) elevated right sided pressures. RVSP 35 mmHg MITRAL VALVE: Mildly thickened with normal mobility. No evidence of mitral valve stenosis. There is no mitral annular calcification. No mitral regurgitation. AORTIC VALVE: Normal trileaflet appearance. No visible sclerosis. Normal leaflet mobility. No evidence of aortic valve stenosis. No aortic regurgitation. AORTIC ROOT: Normal diameter and appearance. PULMONIC VALVE: Normal thickness and mobility. No stenosis. No regurgitation. PERICARDIUM: No evidence of pericardial effusion. IVC: Collapses with inspirations. PLEURA: CONCLUSION: 1. Mild concentric left ventricular hypertrophy with low normal systolic function. LVEF is estimated at 50 to 55%. Calculated LVEF is 53%. 2. Normal right ventricular size and systolic function. 3. No significant valvular dysfunction. 4. Mildly elevated right-sided pressures. Adult Echocardiography Procedure Report Left Ventricle LVEDD (3.7 - 5.6 cm): 5.09 cm LVESD (2.2 - 4.0 cm): 3.06 cm LVIVS thickness (0.6 - 1.2 cm): 1.13 cm LVPW thickness (0.5 - 1.0 cm): 1.18 cm e': 0.10 m/s LVOT Max Gradient: 1.54 mm[Hg] LVOT Area (cm2): 0.62 m/s Peak Velocity (LVOT): 0.62 m/s LVOT Diameter 2.26 cm Left Ventricular Ejection Fraction: 53 % Left Atrium LA Volume Index (2D A2C): 34.93 ml/m2 Left Atrium Systolic Dimension: 3.96 cm Mitral Valve Mitral Valve E-Wave Peak Velocity: 0.45 m/s Right Ventricle Aorta AO Root Diam: 3.26 cm Aortic Valve AoV Area (Peak Liam): 2.58 cm2, 2.58 cm2 Peak Velocity(Antegrade Flow): 0.96 m/s Peak Gradient(Antegrade Flow): 3.72 mm[Hg] Tricuspid Valve Peak Velocity (Regurgitant Flow): 2.82 m/s Pulmonic Valve Peak Gradient: 3.46 mm[Hg], 2.52 mm[Hg] Right Atrium Right Atrium Systolic Pressure: 34.73 ml, 34.73 ml Dictated by: Justine Parks M.D. on 11/11/2024 at 17:54 Approved by: Justine Parks M.D. on 11/11/2024 at 18:01
[2024-11-11] MEDS: SULFUR HEXAFLUORIDE MICROSPHR 25 MG/5 ML VIAL 50 MG IV (15:11)
== END 2024-11-11 13:18 | disposition home or self-care (01) ==
LOC: CARD 13:18
PROVIDERS: PCP Family Medicine; Visit Provider Internal Medicine Interventional Cardiology
DX: I50.22 Chronic systolic (congestive) heart failure (principal)
CPT/HCPCS: C8929; Q9950

== ENCOUNTER 2025-03-21 15:05 | Emergency (ER) | payer MEDICARE, SELFPAY ==
[2025-03-21] VITALS (53 sets, daily range): BP systolic 88–151; BP diastolic 51–123; PULSE 75–96; RESP 12; TEMP 36.6; O2SAT 75–100; BMI 33.0
--- OUTSIDE RECORDS SUMMARY | 2025-03-21 15:14 | XMS_ITS | CCD ---
Author Organization [facility] Care Team Providers Care Fitness Manager Name Role Phone PHYSICIAN, DEFAULT Unavailable Unavailable PHYSICIAN, DEFAULT Unavailable Unavailable MADISON MAGANA Unavailable Unavailable UNKNOWN, PROVIDER Unavailable Unavailable UNKNOWN, PROVIDER Unavailable Unavailable MADISON MAGANA Unavailable Unavailable MADISON MAGANA Unavailable Unavailable PEPE Barr, MYKE Admitting Unavailable [...] DR WALLACE Primary Care Unavailable MD Madison Magana Primary Care Provider DO Isaac Greenwood Admit Provider MD Johnny Bernal Attending Provider Jaimie Lopez Consulting Unavailable Madison Magana Primary Care Unavailable Johnny Bernal Attending Unavailable Isaac Greenwood Admitting Unavailable Zach Jones Consulting Unavailable Justine Jacobo Consulting Jayne López Consulting Unavailable Madison Magana Primary Care Physician Ashley Tariq Attending Unavailable Ashley Tariq Attending Unavailable Ashley Tariq Admitting Unavailable Benjy JOHNSON Attending Unavailable Benjy JOHNSON Admitting Unavailable Benjy JOHNSON Attending Unavailable Benjy JOHNSON Admitting Unavailable Benjy JOHNSON Attending Unavailable COOK, Benjy P Referring Unavailable COOK, Benjy P Referring Unavailable COOK, Benjy P Admitting Unavailable COOK, Benjy P Attending Unavailable COOK, Benjy P Referring Unavailable COOK, Benjy P Admitting Unavailable COOK, Benjy P Attending Unavailable COOK, Benjy P Referring Unavailable COOK, Benjy P Attending Unavailable COOK, Benjy P Admitting Unavailable MOUKARBEL, JUSTINE Attending Unavailable ANGELLA WHITE Attending Unavailable DANII CHOWDARY Attending Unavailable MOUKADEON, JUSTINE Referring Unavailable MOUKARBEL, JUSTINE Attending Unavailable MOUKARBEL, JUSTINE Attending Unavailable MOUKARBEL, JUSTINE Attending Unavailable Allergies Allergy Classification Reported Allergen(s) Allergy Type Date of Onset Reaction(s) Facility (1 source) acetaminophen / oxyCODONE Drug Allergy 6 [facility] Repository (1 source) No Known Allergies; Translations: [No Known Allergies] Propensity to adverse reactions (disorder) 7 [facility] Repository (1 source) Acetaminophen / oxyCODONE; Translations: [OXYCODONE-ACETAM INOPHEN] Drug Allergy 6 [facility] Repository (1 source) empagliflozin; Translations: [EMPAGLIFLOZIN] Drug Allergy 4 [facility] Repository Medications Current Medications Medication Drug Class(es) Dates Sig (Normalized) Sig (Original) acetaminophen 1000 mg oral tablet (2 sources) Start: 09-17-2024 take 1000 mg by mouth twice daily as needed for pain acetaminophen 1,000 mg, Oral, BID, PRN as needed for pain, Refills(s) 0 Start Date: 09/17/24 Status: Ordered amiodarone hydrochloride 200 mg oral tablet (5 sources) Antiarrhythmic Start: 06-02-2024 take 1 tablet by mouth once daily amiodarone 200 mg Tab 200 mg = 1 tab(s), Oral, Daily Start Date: 06/02/24 Status: Ordered amLODIPine 10 mg oral tablet (2 sources) Dihydropyridine Calcium Channel Indra Start: 09-17-2024 amLODIPine 10 mg Tab 10 mg = 1 tab(s), Oral, Refills(s) 0 Start Date: 09/17/24 Status: Ordered aspirin 81 mg delayed release oral tablet (5 sources) Platelet Aggregation Inhibitor, Nonsteroidal Anti-inflammatory Drug Start: 06-02-2024 take 1 tablet by mouth once daily aspirin 81 mg Oral EC Tab 81 mg = 1 tab(s), Oral, Daily Start Date: 06/02/24 Status: Ordered Start: 11-25-2023 take 81 mg by mouth once daily Aspirin Active 81 MG PO Daily November 25, 2023 12:00am canagliflozin 100 mg oral tablet (2 sources) Sodium-Glucose Cotransporter 2 Inhibitor Start: 09-17-2024 take 1 tablet by mouth once daily Invokana 100 mg oral tablet 100 mg = 1 tab(s), Oral, Daily, Refills(s) 0, High blood sugar Start Date: 09/17/24 Status: Ordered furosemide 20 mg oral tablet (1 source) Loop Diuretic Start: 11-25-2023 take 1 tablet by mouth once daily Furosemide (Lasix) 20 mg tablet Active 20 MG PO Daily November 25, 2023 12:00am lidocaine 0.05 mg/mg medicated patch (6 sources) Antiarrhythmic, Amide Local Anesthetic Start: 06-02-2024 lidocaine Top 5% film Patch 1 patch(es), Topical, Daily, apply 1 patch TO THE AFFECTED AREA(S) DAILY leave on for 12 hours and off for 12 hours Start Date: 06/02/24 Status: Ordered metFORMIN hydrochloride 500 mg oral tablet (3 sources) Biguanide Start: 09-17-2024 metformin 500 mg Tab Oral, Daily, Refills(s) 0, High blood sugar Start Date: 09/17/24 Status: Ordered Start: 11-21-2023 End: 11-25-2023 take 500 mg by mouth twice daily Metformin Discontinued 500 MG PO Twice daily November 21, 2023 12:00am November 25, 2023 12:46pm 24 hr metoprolol succinate 50 mg extended release oral tablet (7 sources) beta-Adrenergic Indra Start: 06-02-2024 take 2 tablets by mouth once daily metoprolol succinate 50 mg ER Tab 100 mg = 2 tab(s), Oral, Daily, to equal 100mg. Start Date: 06/02/24 Status: Ordered Start: 06-02-2024 take 1 tablet by janay th once daily metoprolol succinate 50 mg ER [...] mg / valsartan 103 mg oral tablet (7 sources) Angiotensin 2 Receptor Indra Start: 06-02-2024 take 1 tablet by mouth twice daily, then take 1 tablet by mouth twice daily at bedtime Entresto 97 mg-103 mg oral tablet 1 tab(s), Oral, BID, TAKE 1 TABLET BY MOUTH TWICE DAILY (IN THE MORNING and AT BEDTIME) Start Date: 06/02/24 Status: Ordered Start: 11-25-2023 take 1 tablet by janay th twice daily Sacubitril-Valsartan (Entresto) 24-26 mg Tablet Active 1 TAB PO Twice daily 180 November 25, 2023 12:00am Semaglutide (1 source) Start: 11-21-2023 Semaglutide (Ozempic) 0.25 mg or 0.5 mg (2 mg/3 mL) pen injector Active 0.5 MG SUBCUT .weekly November 21, 2023 12:00am SITagliptin 100 mg oral tablet (2 sources) Dipeptidyl Peptidase 4 Inhibitor Start: 09-17-2024 Januvia 100 mg Tab Oral, Daily, Refills(s) 0, High blood sugar Start Date: 09/17/24 Status: Ordered spironolactone 25 mg oral tablet (7 sources) Aldosterone Antagonist Start: 06-02-2024 take 1 tablet by mouth once daily, then take 0.5 tablet by mouth in the morning spironolactone 25 mg Tab 25 mg = 1 tab(s), Oral, Daily, TAKE 1/2 (ONE-HALF) OF A TABLET BY MOUTH IN THE MORNING Start Date: 06/02/24 Status: Ordered Start: 06-02-2024 take 0.5 tablet by m outh once daily, then take 0.5 tablet by mouth in the morning spironolactone 25 mg Tab 1/2 tab, Oral, Daily, TAKE 1/2 (ONE-HALF) OF A TABLET BY MOUTH IN THE MORNING Start Date: 06/02/24 Status: Ordered Start: 11-25-2023 take 25 mg by mouth once daily Spironolactone Active 25 MG PO Daily 90 November 25, 2023 12:00am sulfamethoxazole 800 mg / trimethoprim 160 mg oral tablet (1 source) Dihydrofolate Reductase Inhibitor Antibacterial, Sulfonamide Antimicrobial Start: 09-24-2024 Bactrim D.S. 800 mg-160 mg Tab 1 tab(s), Oral, BID, 10 tab(s), Refill(s) 0, [id number], 176, cm, 09/17/24 13:57:00 EST, Height/Length Dosing, 109.1, kg, 09/17/24 13:57:00 EST, Weight Dosing Start Date: 09/24/24 Status: Ordered Completed/Discontinued Medications Medication Drug Class(es) Dates Sig (Normalized) Sig (Original) amoxicillin 875 mg / clavulanate 125 mg oral tablet (1 source) Penicillin-class Antibacterial Start: 11-21-2023 End: 11-25-2023 take 1 tablet by mouth every twelve hours Amoxicillin-Pot Clavulanate Discontinued 1 TAB PO Every 12 hours November 21, 2023 12:00am November 25, 2023 12:43pm apixaban 5 mg oral tablet (7 sources) Factor Xa Inhibitor Start: 06-02-2024 take 1 tablet by mouth twice daily Eliquis 5 mg oral tablet 5 mg = 1 tab(s), Oral, BID, TAKE 1 TABLET BY MOUTH TWICE DAILY Start Date: 06/02/24 Status: Ordered Start: 11-25-2023 take 1 tablet by janay th twice daily Apixaban (Eliquis) 5 mg Tablet Active 5 MG PO Twice daily 180 November 25, 2023 12:00am atorvastatin 40 mg oral tablet (8 sources) HMG-CoA Reductase Inhibitor Start: 06-02-2024 take [...] 21, 2023 12:00am November 25, 2023 12:43pm cephalexin 500 mg oral capsule (2 sources) Cephalosporin Antibacterial Start: 06-05-2024 take 1 capsule by mouth once daily Keflex 500 mg Cap 500 mg = 1 cap(s), Oral, BID, Take 1 cap day prior to procedure and 1 cap day of procedure - afterwards, # 2 cap(s), Refills(s) 0, Pharmacy: [id number], 178, cm, 06/02/24 14:00:00 EDT, Height/Length Dosing, 105, kg, 06/02/24 14:00:00 EDT, Weight Dosing Start Date: 06/05/24 Status: Ordered empagliflozin 10 mg oral tablet (6 sources) Sodium-Glucose Cotransporter 2 Inhibitor Start: 06-02-2024 take 1 tablet by mouth once daily in the morning Jardiance 10 mg oral tablet 10 mg = 1 tab(s), Oral, qAM, take 1 tablet by mouth once daily Start Date: 06/02/24 Status: Ordered Start: 11-25-2023 take 1 tablet by janay th once daily Empagliflozin (Jardiance) 10 mg Tablet Active 10 MG PO Daily 90 90 November 25, 2023 12:00am ezetimibe 10 mg oral tablet (7 sources) Dietary Cholesterol Absorption Inhibitor Start: 06-02-2024 [...] 21, 2023 12:00am November 25, 2023 12:43pm pantoprazole 40 mg delayed release oral tablet (7 sources) Proton Pump Inhibitor Start: 06-02-2024 take 1 tablet by mouth once daily Pantoprazole [address] Tab 40 mg = 1 tab(s), Oral, Daily, TAKE 1 TABLET BY MOUTH DAILY Start Date: 06/02/24 Status: Ordered Start: 11-21-2023 take 40 mg by mouth once daily Pantoprazole Active 40 MG PO Daily November 21, 2023 12:00am tiZANidine 4 mg oral tablet (6 sources) Central alpha-2 Adrenergic Agonist Start: 06-02-2024 take 2 tablets by mouth at bedtime tiZANidine 4 mg Tab 4 mg = 1 tab(s), Oral, Bedtime, TAKE 2 TABLETS BY MOUTH AT BEDTIME Start Date: 06/02/24 Status: Ordered Problems Active Problems Problem Classification Problem Date Documented Da te Episodic/Chronic Acute myocardial infarction (15 sources) Myocardial infarction; Translations: [Non-ST elevation (NSTEMI) myocardial infarction] Onset: 4 11-21-2023 Chronic Anxiety disorders (1 source) Anxiety disorder, unspecified; Translations: [ANXIETY DISORDER UNSPECIFIED] Onset: 2 Chronic Calculus of urinary tract (15 sources) Personal history of urinary calculi; Translations: [Kidney stone] Onset: 2 Episodic Cardiac dysrhythmias (11 sources) Atrial fibrillation; Translations: [Unspecified atrial fibrillation] Onset: 4 11-21-2023 Chronic Congestive heart failure; nonhypertensive (15 sources) Heart failure with reduced ejection fraction; Translations: [Unspecified systolic (congestive) heart failure] Onset: 4 11-21-2023 Chronic Coronary atherosclerosis and other heart disease (15 sources) Atherosclerotic heart disease of [place] coronary artery without angina pectoris; Translations: [Coronary arteriosclerosis] Onset: 7 11-21-2023 Chronic Crushing injury or internal injury (2 sources) Injury of heart; Translations: [Myocardial injury] 11-21-2023 Episodic Diabetes mellitus without complication (11 sources) Type 2 diabetes mellitus without complications; Translations: [Diabetes mellitus] Onset: 7 11-21-2023 Chronic Diseases of white blood cells (6 sources) Leukocytosis 06-02-2024 Chronic Disorders of lipid metabolism (7 sources) Hyperlipidemia, unspecified; Translations: [Hypercholesterolemia] Onset: 7 06-02-2024 Chronic Esophageal disorders (6 sources) Gastroesophageal reflux disease 06-02-2024 Chronic Essential hypertension (19 sources) Essential (primary) hypertension; Translations: [Hypertensive disorder] Onset: 7 11-21-2023 Chronic Genitourinary symptoms and ill-defined conditions (8 sources) Blood in urine; Translations: [Gross hematuria] Onset: 4 Episodic Headache; including migraine (2 sources) Headache; Translations: [Headache] 11-21-2023 Episodic Headache; including migraine (1 source) Headache; including migraine; Translations: [Headache, unspecified] Onset: 4 Influenza (3 sources) Influenza due to Influenza A virus; Translations: [Influenza due to other identified influenza virus with other respiratory manifestations] Onset: 4 11-21-2023 Episodic Nonspecific chest pain (7 sources) Chest pain, unspecified; Translations: [Chest pain] Onset: 7 11-21-2023 Episodic Osteoarthritis (1 source) Unspecified osteoarthritis, unspecified site; Translations: [UNSPECIFIED OSTEOARTHRITIS UNS SITE] Onset: 2 Chronic Other aftercare (2 sources) Long-term current use of anticoagulant; Translations: [longterm (current) use of anticoagulants] Onset: 4 Episodic Other and ill-defined heart disease (6 sources) Heart disease Onset: 4 06-02-2024 Chronic Other diseases of bladder and urethra (2 sources) Detrusor overactivity; Translations: [Overactive bladder] Onset: 4 Chronic Other diseases of bladder and urethra (6 sources) Overactive bladder 06-02-2024 Chronic Other endocrine disorders (2 sources) Disorder of adrenal gland; Translations: [Other specified disorders of adrenal gland] Onset: 4 Chronic Other gastrointestinal disorders (6 sources) Adrenal mass 06-02-2024 Episodic Other lower [...] INDEX BMI 40.0-44.9 ADULT] Onset: 2 Chronic Residual codes; unclassified (2 sources) Tobacco user 09-17-2024 Episodic Respiratory failure; insufficiency; arrest (adult) (3 sources) Acute respiratory failure; Translations: [Acute respiratory failure with hypoxia] Onset: 4 11-21-2023 Episodic Screening or history of mental health and substance abuse (9 sources) Personal history of nicotine dependence; Translations: [H/O: Disorder] Onset: 7 Episodic Substance-related disorders (3 sources) Nicotine dependence, cigarettes, uncomplicated; Translations: [Smoker] Onset: 2 09-17-2024 Chronic Comment on above: Added secondary to d ocumentation in Social History. 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] Onset: 7 Unclassified (2 sources) Unknown / UNK(Unknown) Onset: 7 Unclassified (2 sources) CONTACT W/AND (SUSP) EXPOS COVID-19; Translations: [CONTACT W/AND (SUSP) EXPOS COVID-19] Onset: 2 Unclassified (1 source) COUGH, UNSPECIFIED; Translations: [COUGH, UNSPECIFIED] Onset: 2 Unclassified (1 source) Non-ischemic myocardial injury (non-traumatic); Translations: [Non-ischemic myocardial injury (non-traumatic)] Onset: 4 Unclassified (6 sources) Drug therapy finding 06-02-2024 Viral infection [...] INITIAL ENCOUNTER] Onset: 2 Episodic Gastrointestinal hemorrhage (6 sources) Gastrointestinal hemorrhage Onset: 4 06-02-2024 Episodic Other aftercare (3 sources) longterm (current) use of aspirin; Translations: [longterm (current) use of antithrombotics/antipl atelets] Onset: 7 Episodic Other aftercare (1 source) Other skilled nursing (current) drug therapy; Translations: [OTH PENITENTIARY CURRENT DRUG THERAPY] Onset: 2 Episodic Other [...] Value Interpretation Reference Range Facility Office Visiton 02-09-2025 Follow-up visit [id number] Chung Dubose 1960 F Date Provider Department Center 02/09/2025 DANII BRANDT DEMETRIS [facility] Family History Problem Relation Age of Onset Diabetes Mother Atrial fibrillation Mother Hyperlipidemia Mother Kidney disease Sister Heart attack Maternal Grandmother Stroke Maternal Grandmother Family Status - Relation Status Age at Mother Alive Father Alive Sister Maternal Grandmother Level of Service:42964 AR OFFICE/OUTPATIENT NEW MODERATE MDM 45 MINUTES Normal [facility] Office Visiton 12-04-2024 Follow-up visit [id number] Chung Dubose sina Patrick 1960 F Date Provider Department Center 12/04/2024 Akilah-CORNELIO JUSTINE CARD [facility] Family History Problem Relation Age of Onset Diabetes Mother Atrial fibrillation Mother Hyperlipidemia Mother Kidney disease Sister Heart attack Maternal Grandmother Stroke Maternal Grandmother Family Status - Relation Status Age at Mother Sister Maternal Grandmother Level of Service:56381 AR OFFICE/OUTPATIENT ESTABLISHED MOD MDM 30 MIN Normal [facility] Non-Seo Strategist Cytology Reporton Non-Seo Strategist Cytology Report [place] [address] [place] [address]- Non-Seo Strategist Cytology Report Collected Date/Time: 09/24/2024 15:00 EST Pathologist: Sagar HO PhD, Chi Hall Received Date/Time: 09/25/2024 07:07 EST SHANNAN HO, Benjy JOHNSON MD, Benjy Virgen Non-Seo Strategist Cytology Report - 09/29/2024 11:37 EST - Auth (Verified) Final Diagnosis A: BLADDER WASHINGS, CYSTOSCOPIC COLLECTED: - NO HIGH GRADE UROTHELIAL CARCINOMA IDENTIFIED. B: LEFT URETERAL WASHINGS, CYSTOSCOPIC COLLECTED: - ATYPICAL UROTHELIAL CELLS, FAVOR REACTIVE. C: RIGHT URETERAL WASHINGS, CYSTOSCOPIC COLLECTED: - NO HIGH GRADE UROTHELIAL CARCINOMA IDENTIFIED. (Electronic Signature) Chi Keith MD PhD 09/29/2024 11:37 Clinical Information hematuria Procedure: Cystoscopy, bilateral retrograde pyelograms, bilateral ureteral washing cytology Specimen Received A.Bladder washings for cytology B.Left ureteral washing for cytology C.Right ureteral washing for cytology Gross Description A: Received approximately 100 mL of yellow fluid. Approximately 10 mL of fluid and 30 mL of ThinPrep CytoLyt solution added, sent for processing. B: Received approximately 5 mL of colorless clear fluid. Approximately 5 mL of fluid and 15 mL of ThinPrep CytoLyt solution added, sent for processing. C: Received approximately 8 mL of colorless clear fluid. Approximately 5 mL of fluid and 15 mL of ThinPrep CytoLyt solution added, sent for processing. (DC) DC:[facility] Microscopic Description Microscopic examination performed unless gross only specified. Normal [facility] Comment on above: Performed By: #### [id number] #### [facility] [address] [place] [address] Main OR Intraoperative Recor don 09-28-2024 Main OR Intraoperative Record Main OR Intraoperative Record IntraOp Document Type FT Summary Primary Physician: Benjy JOHNSON MD Finalized Date/Time: 09/28/24 10:46:18 Pt. Name: MELISSA DUBOSE Celina /Sex: 1960 Female Med Rec #: [id number] Physician: Benjy JOHNSON MD Financial #: [id number] Pt. Type: A Room/Bed: [place] [address] Admit/Disch: 09/24/24 11:19:24 - 09/24/24 16:35:00 Institution: Case Times FT Entry 1 Patient Times In Room 09/24/24 14:13:00 Out Room 09/24/24 14:53:00 Procedure Times Start 09/24/24 14:30:00 Stop 09/24/24 14:47:00 Anesthesia Times Start 09/24/24 14:13:00 Stop 09/24/24 14:53:00 Last Modified By: James Johnson 09/24/24 15:10:34 General Comments: 09/28/24 Chart opened for charge review per Carmen Shin RN. [place] Case Attendance FT Entry 1 Entry 2 Entry 3 Case Attendee Omar LEDEZMA, RISK PROFESSIONAL, Benjy Carreon MD, Terry T N. Role Performed RISK PROFESSIONAL Surgeon - Primary Manager Switch - Primary Time In 09/24/24 14:13:00 09/24/24 14:13:00 09/24/24 14:13:00 Time Out 09/24/24 14:53:00 09/24/24 14:47:00 09/24/24 14:53:00 Procedure CYSTOSCOPY RETROGRADE CYSTOSCOPY RETROGRADE CYSTOSCOPY RETROGRADE PYELOGRAM(Bilateral) PYELOGRAM(Bilateral) PYELOGRAM(Bilateral) Comments dr [email or web address] supervising Last Modified By: James Johnson Terry T Sweene, Terry T 09/24/24 15:16:16 09/24/24 15:16:16 09/24/24 15:16:16 Entry 4 Entry 5 Case Attendee Yari Ruiz RT(R), Lizz Odalys Role Performed Scrub - Primary Pastoral Worker Time In 09/24/24 14:13:00 09/24/24 14:13:00 Time Out 09/24/24 14:53:00 09/24/24 14:53:00 Procedure CYSTOSCOPY RETROGRADE CYSTOSCOPY RETROGRADE PYELOGRAM(Bilateral) PYELOGRAM(Bilateral) Comments Last Modified By: James Johnson Terry T 09/24/24 15:16:16 09/24/24 15:16:16 Perioperative Protocols FT Pre-Care Text: Implements protective measures prior to operative or invasive procedure, confirms identity before the operative or invasive procedure, verifies operative procedure, surgical site, and laterality Entry 1 Procedure(s) CYSTOSCOPY RETROGRADE Patient Identity Birthday, ID Band PYELOGRAM(Bilateral) Verified (select at Check, Patient least 2): Participation Consents / H and P Anesthesia Consent, Operative Site N/A Verified H&P, Surgery/Procedure Marking Verified Consent Surgical Site Yes Laterality Verified n/a Verified Procedure Verified Yes Correct Patient Yes Position Verified Availability Equipment, Medication Prep Dry n/a Verified (If Applicable) PreOp Antibiotic Yes Time Out Omar LEDEZMA, BUZZ, Queen Autumn Participants NMomo, Benjy JOHNSON MD, Sweene, Terry T, Dellinger, Sydney A Time Out Complete 09/24/24 14:29:00 Outcomes Met? Yes Last Modified By: James Johnson 09/24/24 15:11:43 Post-Care Text: The patient is free from signs and symptoms of injury caused by extraneous objects Allergy Information FT Pre-Care Text: Verifies allergies Entry 1 Allergies Reviewed? Yes Allergies Reviewed Self/Patient With Outcomes Met? Yes Last Modified By: James Johnson 09/24/24 15:11:50 Post-Care Text: The patient received appropriate medication(s) safely administered during the perioperative period Surgical Procedures FT Entry 1 Procedure Description Procedure CYSTOSCOPY RETROGRADE Modifiers Bilateral PYELOGRAM Surgeon Description CYSTO BILATERAL RETROGRADE PYELOGRAM, BILATERAL URETERAL WASH CYTOLOGY Primary Procedure Yes Primary Surgeon Benjy JOHNSON MD Start 09/24/24 14:30:00 Stop 09/24/24 14:47:00 Anesthesia Type General Surgical Service Urology Wound Class 2 - Clean-Contaminated Last Modified By: James Johnson 09/24/24 15:12:01 General Case Data FT Pre-Care Text: Classifies surgical wound, implements aseptic technique, initiates traffic control Entry 1 Case Information OR OR 1 FT Case Level Level 3 Wound Class 2 - Clean-Contaminated Specialty Urology ASA Class 3 Preop Diagnosis GROSS HEMATURIA, Postop Same As Preop Yes ADRENAL MASS Postop Diagnosis GROSS HEMATURIA, Outcomes Met? Yes ADRENAL MASS Last Modified By: James Johnson 09/24/24 15:12:07 Post-Care Text: The patient is free from signs and symptoms of infection Skin Assessment (Pre Procedure) FT Pre-Care Text: Implements protective measures to prevent skin/ tissue injury due to thermal or mechanical sources Evaluates for signs and symptoms of physical injury to skin and tissue Entry 1 Skin Integrity Intact, [place], Warm, & Skin Abnormality No Dry Outcomes Met? Yes Last Modified By: James Johnson 09/24/24 15:12:17 Post-Care Text: The patient is free from signs and symptoms of injury caused by extraneous objects Patient Positioning FT Pre-Care Text: Identifies physical alterations that require additional precautions for procedure-specific positioning, verifies presence of prosthetics or corrective devices, positions the patient, evaluates the patient for signs an (more content not included)... Normal [facility] XR Urography Retrograde Bila lili 09-25-2024 XR Urography Retrograde Bilateral Exam Date/Time: 09/24/2024 14:58 EST Reason for Exam: Kidney stone Report IMPRESSION: INTRAOPERATIVE FLUOROSCOPY DESCRIBED. CLINICAL HISTORY: Kidney stone COMPARISON: NONE. FINDINGS: 14.6 mGy. 7 images. Bilateral retrograde cystoscopy. Calculus identified near terminus lower pole left kidney. See operative note for additional information. Remote internal fixation L3-S1 using bilateral posteriorly placed pedicle screws secured to bilateral vertically oriented rods and a horizontal bracket. Additional surgical clips identified overlying L3-S1. Ordering Provider: Benjy JOHNSON FINAL REPORT Dictated: 09/25/2024 5:53 pm Sohan Henao MD Signed (Electronic Signature): 09/25/2024 5:53 pm Signed by: Sohan Henao MD Transcribed by: SONIA Technologist: SALUD Technical Comments Radiation Dose: odalys Garcia in mGy = 14.60 DAP = 1108.78 Normal [facility] CHEMISTRYOrdered By: Lab ROP User on 09-24-2024 Glucose [Mass/Vol] 147 mg/dL High 55 - 99 mg/dL [facility] POC Subsection Comment on above: Result Comment: Martinez edgar RN/ POC Username SHAAN WEAVER Invalid Interpretation Code [facility] POC Subsection Sodium [Moles/Vol] [id number] mmol/L Invalid Interpretation Code [facility] POC Subsection Sodium [Moles/Vol] [id number] mmol/L Invalid Interpretation Code [facility] POC Subsection Capillary Glucose POCon 09-09 Glucose [Mass/Vol] 147 mg/dL High 55-99 [facility] Comment on above: Result Comment: Martinez RAPP Performed By: #### [id number] #### [facility] [address] [place] [address] Discharge Instructionson Discharge Instructions Discharge Instructions MELISSA DUBOSE :1960 Visit Date:09/24/2024 Inpatient Discharge Instructions Your Care Team Admitting Physician - Benjy JOHNSON MD Referring Physician - Benjy JOHNSON MD Reason for Your Visit GROSS HEMATURIA, ADRENAL MASS Tests Performed Pathology Non-Seo Strategist Cytology Exam -- Results Pending -- XR Urography Retrograde Bilateral -- Results Pending -- Please visit your patient portal for your results or contact your primary care physician. This Is Your Medications List acetaminophen amlodipine (amLODIPine 10 mg Tab) apixaban (Eliquis 5 mg oral tablet) atorvastatin (atorvastatin 40 mg Tab) canagliflozin (Invokana 100 mg oral tablet) ezetimibe (ezetimibe 10 mg Tab) lidocaine topical (lidocaine Top 5% film Patch) metformin (metformin 500 mg Tab) metoprolol (metoprolol succinate 50 mg ER Tab) pantoprazole (Pantoprazole [address] Tab) sacubitril-valsartan (Entresto 97 mg-103 mg oral tablet) sitagliptin (Januvia 100 mg Tab) spironolactone (spironolactone 25 mg Tab) sulfamethoxazole-trimethopri m (Bactrim D.S. 800 mg-160 mg Tab) tizanidine (tiZANidine 4 mg Tab) Procedure History Flexible cystoscope (08/20/2024), Cardioversion (01/2024), Cardiac catheter, Cholecystectomy, Colonoscopy, History of coronary artery bypass grafting.., Hysterectomy, Surgical procedure on cervical spine, Surgical procedure on lumbar spine. What to do next Instructions From Your Doctor Event Name Event Result Discharge Activity Arrange for a responsible adult supervision for 24 hours, Expect mild pain, Expect minimal amount of drainage and/or bleeding Discharge Restrictions No driving, Do not operate machinery or tools, Do not make important decisions for 24 hours, Do not drink alcoholic beverages for 24 hours Discharge Diet(s) Calorie Controlled- 2000 Calorie Diet Call Your Doctor For Persistent or heavy bleeding, Temperature above 101.5 degrees Discharge Instructions Discharge Instructions New Follow Up Appointments after Discharge Follow Up with Benjy JOHNSON When: Comments: Call for followup appointment. I found no obvious abnormality in the bladder or by shooting the x-ray dye up into the kidneys. As we discussed I did collect a saline solution after pushing it up into each kidney. You do have the left-sided kidney stone which at some point, we could consider treating with stone busting. The timing of that is up to you. 1 option would be to simply see her back in about 6 months with an abdominal x-ray. The other option would be to set you up for external stone busting which may require an indwelling stent due to the size of the stone. It is currently sitting in the bottom of the left kidney. I still do not think this is the reason for the intermittent blood in the urine but it is a possibility. Please finish antibiotics which I prescribed for you and I did send into the pharmacy. Have a great day. Where: [facility] [address] [place] [phone] Business (1) Medications What How Much When Instructions Next Dose New sulfamethoxazole-trimethopri m (Bactrim D.S. 800 mg-160 mg Tab) 1 Tablets By Mouth 2 times a day Pickup at [facility] Changed metoprolol (metoprolol succinate 50 mg ER Tab) 2 Tablets By Mouth Every day to equal 100mg. Changed spironolactone (spironolactone 25 mg Tab) 1 Tablets By Mouth Every day TAKE 1/ 2 (ONE-HALF) OF A TABLET BY MOUTH IN THE MORNING Unchanged acetaminophen 1,000 Milligram By Mouth 2 times a day as needed for as needed for pain Unchanged amlodipine (amLODIPine 10 mg Tab) 1 Tablets By Mouth Unchanged apixaban (Eliquis 5 mg oral tablet) 1 Tablets By Mouth 2 times a day TAKE 1 TABLET BY MOUTH TWICE DAILY Unchanged atorvastatin (atorvastatin 40 mg Tab) 1 Tablets By Mouth Every day TAKE 1 TABLET BY MOUTH AT BEDTIME Unchanged canagliflozin (Invokana 100 mg oral tablet) 1 Tablets By Mouth Every day Unchanged ezetimibe (ezetimibe 10 mg Tab) 1 Tablets By Mouth Every day TAKE 1 TABLET BY MOUTH DAILY Unchanged lidocaine topical (lidocaine Top 5% film Patch) 1 Patches Topical Every day apply 1 patch TO THE AFFECTED AREA(S) DAILY leave on for 12 hours and off for 12 hours Unchanged metformin (metformin 500 mg Tab) By Mouth Every day Unchanged pantoprazole (Pantoprazole [address] Tab) 1 Tablets By Mouth Every day TAKE 1 TABLET BY MOUTH DAILY Unchanged sacubitril-valsartan (Entresto 97 mg-103 mg oral tablet) 1 Tablets By Mouth 2 times a day TAKE 1 TABLET BY MOUTH TWICE DAILY (IN THE MORNING and AT BEDTIME) Unchanged sitagliptin (Januvia 100 mg Tab) By Mouth Every day Unchanged tizanidine (tiZANidine 4 mg Tab) 1 Tablets By Mouth At bedtime TAKE 2 TABLETS BY MOUTH AT BEDTIME Pharmacy Information [facility]: [address], [place] [phone] Allergies No Known Allergies Problems Ongoing - Any problem that you ar (more content not included)... Normal [facility] Comment on above: Result Comment: Elec tronically Signed By: Kym White RN\.patience\Date and Time Signed: 09/24/24 15:15 EST Inpatient Patient Summaryon 09-24-2024 Inpatient Patient Summary Inpatient Patient Summary [address] [address] [place] Clinical Discharge Instructions PERSON INFORMATION Name: MELISSA DUBOSE [facility]#:[id number] PHYSICIANS Admitting Physician: Benjy JOHNSON MD Attending Physician: Benjy JOHNSON MD PCP: Maidson Magana MD Discharge Diagnosis: Comment: PATIENT EDUCATION INFORMATION Instructions: Medication Leaflets: Follow up: With: Address: When: Benjy SHANNAN Aleks [address], [address], [facility] [address] [place] [id number] [facility] (1) Comments: Call for followup appointment. I found no obvious abnormality in the bladder or by shooting the x-ray dye up into the kidneys. As we discussed I did collect a saline solution after pushing it up into each kidney. You do have the left-sided kidney stone which at some point, we could consider treating with stone busting. The timing of that is up to you. 1 option would be to simply see her back in about 6 months with an abdominal x-ray. The other option would be to set you up for external stone busting which may require an indwelling stent due to the size of the stone. It is currently sitting in the bottom of the left kidney. I still do not think this is the reason for the intermittent blood in the urine but it is a possibility. Please finish antibiotics which I prescribed for you and I did send into the pharmacy. Have a great day. MEDICATION LIST New Medications [facility], [address] [place], [place] [phone], [phone] sulfamethoxazole-trimethopri m (Bactrim D.S. 800 mg-160 mg Tab) 1 Tablets By Mouth 2 times a day. Refills: 0. Medications to Continue Taking That Have Changed Other Medications START: metoprolol (metoprolol succinate 50 mg ER Tab) 2 Tablets By Mouth every day. to equal 100mg.. START: spironolactone (spironolactone 25 mg Tab) 1 Tablets By Mouth every day. TAKE 1/2 (ONE-HALF) OF A TABLET BY MOUTH IN THE MORNING. Medications to Continue with No Changes Other Medications acetaminophen 1,000 Milligram By Mouth 2 times a day as needed as needed for pain. amlodipine (amLODIPine 10 mg Tab) 1 Tablets By Mouth. apixaban (Eliquis 5 mg oral tablet) 1 Tablets By Mouth 2 times a day. TAKE 1 TABLET BY MOUTH TWICE DAILY. atorvastatin (atorvastatin 40 mg Tab) 1 Tablets By Mouth every day. TAKE 1 TABLET BY MOUTH AT BEDTIME. canagliflozin (Invokana 100 mg oral tablet) 1 Tablets By Mouth every day. ezetimibe (ezetimibe 10 mg Tab) 1 Tablets By Mouth every day. TAKE 1 TABLET BY MOUTH DAILY. lidocaine topical (lidocaine Top 5% film Patch) 1 Patches Topical every day. apply 1 patch TO THE AFFECTED AREA(S) DAILY leave on for 12 hours and off for 12 hours. metformin (metformin 500 mg Tab) By Mouth every day. pantoprazole (Pantoprazole [address] Tab) 1 Tablets By Mouth every day. TAKE 1 TABLET BY MOUTH DAILY. sacubitril-valsartan (Entresto 97 mg-103 mg oral tablet) 1 Tablets By Mouth 2 times a day. TAKE 1 TABLET BY MOUTH TWICE DAILY (IN THE MORNING and AT BEDTIME). sitagliptin (Januvia 100 mg Tab) By Mouth every day. tizanidine (tiZANidine 4 mg Tab) 1 Tablets By Mouth at bedtime. TAKE 2 TABLETS BY MOUTH AT BEDTIME. Comment: Normal [facility] Main OR PACU I Recordon 09-09 Main OR PACU I Record Main OR PACU I Rec ord PACU Phase I Document Type FT Summary Primary Physician: Benjy JOHNSON MD Finalized Date/Time: 09/24/24 15:49:26 Pt. Name: MELISSA DUBOSE/Sex: 1960 Female Med Rec #: [id number] Physician: Benjy JOHNSON MD Financial #: [id number] Pt. Type: A Room/Bed: [facility]09/09 Admit/Disch: 09/24/24 11:19:24 - Institution: Case Times PACU I FT Pre-Care Text: Identifies barriers to communication and implements measures to provide psychological support Develops individualized plan of care, and ensures continuity of care Maintains patient's dignity and privacy, and maintains patient confidentiality Identifies and reports philosophical, cultural, and spiritual beliefs and values Identifies individual values and wishes concerning care Implements aseptic technique, and administers prescribed antibiotic therapy and immunizing agents as ordered Evaluates postoperative tissue perfusion Implements thermoregulation measures, and monitors body temperature Evaluates postoperative respiratory status Evaluates postoperative cardiac status Evaluates postoperative neurological status Assesses pain control, collaborated in initiating patient-controlled analgesia and implements alternative methods of pain control Verifies allergies, administers prescribed medications and solutions, evaluates response to medications Entry 1 In PACU I 09/24/24 14:58:00 Discharge from PACU 09/24/24 15:35:00 I Outcomes Met? Yes Last Modified By: Hazel Swain RN 09/24/24 15:49:15 Post-Care Text: The patient demonstrates knowledge of the expected response to the operative or invasive procedure The patient's care is consistent with the individualized perioperative plan of care The patient's right to privacy is maintained The patient's value system, lifestyle, ethnicity, and culture are considered, respected, and incorporated into the perioperative plan of care The patient participates in decisions affecting his or her perioperative plan of care The patient is free from signs and symptoms of infection The patient has wound/tissue perfusion consistent with or improved from baseline levels established preoperatively The patient is at or returning to normothermia at the conclusion of the immediate postoperative period The patient's respiratory function is consistent with or improved from baseline levels established preoperatively The patient's cardiovascular status is consistent with or improved from baseline levels established preoperatively The patient's cardiovascular status is consistent with or improved from baseline levels established preoperatively The patient demonstrates and/or reports adequate pain control throughout the perioperative period The patient received appropriate medication(s), safely administered during the perioperative period Acuity Level PACU I FT Entry 1 Start Time 09/24/24 14:58:00 Stop Time 09/24/24 15:35:00 Acuity Level Acuity Level I Last Modified By: Hazel Swain RN 09/24/24 15:49:23 Finalized By: Hazel Swain RN Document Signatures Signed By: Hazel Swain RN 09/24/24 15:49 Normal [facility] Main OR PACU II Recordon Main OR PACU II Record Main OR PACU II Record PACU Phase II Document Type FT Summary Primary Physician: Benjy JOHNSON MD Finalized Date/Time: 09/24/24 16:43:53 Pt. Name: MELISSA DUBOSE/Sex: 1960 Female Med Rec #: [id number] Physician: Benjy JOHNSON MD Financial #: [id number] Pt. Type: A Room/Bed: [facility]109/09 Admit/Disch: 09/24/24 11:19:24 - Institution: Case Times PACU II FT Pre-Care Text: Identifies barriers to communication and implements measures to provide psychological support and determines knowledge level Develops individualized plan of care, and ensures continuity of care Maintains patient's dignity and privacy, and maintains patient confidentiality Identifies and reports philosophical, cultural, and spiritual beliefs and values Identifies individual values and wishes concerning care administers prescribed antibiotic therapy and immunizing agents as ordered, Evaluates postoperative tissue perfusion Implements thermoregulation measures, and monitors body temperature Evaluates postoperative respiratory status Evaluates postoperative cardiac status Evaluates postoperative neurological status Assesses pain control, collaborated in initiating patient-controlled analgesia and implements alternative methods of pain control Verifies allergies, administers prescribed medications and solutions, evaluates response to medications Entry 1 In PACU II 09/24/24 15:35:00 Discharge from PACU 09/24/24 16:35:00 II Outcomes Met? Yes Last Modified By: Kym White RN 09/24/24 16:43:52 Post-Care Text: The patient demonstrates knowledge of the expected response to the operative or invasive procedure The patient's care is consistent with the individualized perioperative plan of care The patient's right to privacy is maintained The patient's value system, lifestyle, ethnicity, and culture are considered, respected, and incorporated into the perioperative plan of care The patient participates in decisions affecting his or her perioperative plan of care. The patient is free from signs and symptoms of infection The patient has wound/tissue perfusion consistent with or improved from baseline levels established preoperatively The patient is at or returning to normothermia at the conclusion of the immediate postoperative period The patient's respiratory function is consistent with or improved from baseline levels established preoperatively The patient's cardiovascular status is consistent with or improved from baseline levels established preoperatively The patient's neurological status is consistent with or improved from baseline levels established preoperatively The patient demonstrates and/or reports adequate pain control throughout the perioperative period The patient received appropriate medication(s), safely administered during the perioperative period Finalized By: Kym White RN Document Signatures Signed By: Kym White RN 09/24/24 16:43 Normal [facility] Main OR Preoperative Recordo n 09-24-2024 Main OR Preoperative Record Main OR Preoperative Record PreOp Document Type FT Summary Primary Physician: Benjy JOHNSON MD Finalized Date/Time: 09/24/24 15:58:07 Pt. Name: MELISSA DUBOSE Celina Patrick/Sex: 1960 Female Med Rec #: [id number] Physician: Benjy JOHNSON MD Financial #: [id number] Pt. Type: A Room/Bed: [facility]/ Admit/Disch: 09/24/24 11:19:24 - Institution: Case Times PreOp FT Pre-Care Text: Verifies consent for planned procedure, identifies individual values and wishes concerning care, includes family members in perioperative teaching Entry 1 Patient Times. In Pre Surgery 09/24/24 11:30:00 Out Pre Surgery 09/24/24 14:11:00 Outcomes Met? Yes Last Modified By: Shaan Weaver RN 09/24/24 15:58:05 Post-Care Text: The patient participates in decisions affecting his or her perioperative plan of care Finalized By: Shaan Weaver RN Document Signatures Signed By: Shaan Weaver RN 09/24/24 15:58 Normal [facility] Operative Reporton Operative Report Operative Report Patient: MELISSA DUBOSE Age: 64 years Sex: Female : 1960 Associated Diagnoses: None Author: Benjy JOHNSON MD Postoperative Information Date/ Time: 09/24/2024 15:01:00 Postoperative Diagnosis: Gross hematuria Left renal calculus. Performed by: Benjy Johnson MD. Findings: Procedure: Cystoscopy Bladder wash cytology Bilateral ureteral wash cytologies Bilateral retrograde pyelograms. Anesthesia: General, LMA, 2% Xylocaine jelly per urethra Indications: This is a 64-year-old female who has had intermittent gross hematuria. She had a negative workup previously with CT scans demonstrating nonobstructive left renal calculi. She also had cytologies of the urine and cystoscopy which was negative. Intermittent hematuria persists and she presents today for cystoscopy, bilateral retrograde pyelograms, ureteral wash cytologies and the possibility of ureteroscopy. She understands risk benefits and details of those procedures and wishes to proceed. She did receive preoperative antibiotics and does have sequential compression devices in place and functional bilateral lower extremities throughout the case. Procedure: The patient is brought back to the operating room and a timeout is performed. All are in agreement with the operative plan and she is identified appropriately. After the successful induction of general anesthesia she is placed in the modified lithotomy position and prepped in usual fashion Betadine solution. She is draped appropriately and 2% Xylocaine jelly is placed per urethra. A well-lubricated 22 Haitian is urethroscope with 30 degree lens then passed into the bladder without difficulty. Bladder wash cytology was performed and sent as specimen #1. Bilateral ureteral wash cytologies were also then performed utilizing a 6 Haitian open-ended ureteral catheter. These were sent to specimen #2 and 3. I should note that the bladder demonstrated no tumors, no stones, no diverticuli. Nothing suspicious. The bilateral ureteral orifices are normal on the trigone and effluxing clear urine. Subsequently bilateral retrograde pyelograms were performed utilizing 50-50 contrast solution. The right retrograde pyelogram was completely normal. Normal ureter. Normal pelvic calyceal system. On the left side the left ureter is normal pelvic calyceal system is also normal other than a large left lower pole renal calculus located in the laterally located posterior calyx. This measures about 7 to 8 mm in size. With all that accomplished, the bladder was emptied, procedure terminated. She tolerates it well. She transferred to the [facility] and then back to PACU in satisfactory condition, stable vital signs. Plan to be for discharge home and prescription sent to pharmacy for Bactrim DS. Discussed all this with her daughter postop and she is in agreement with the plan. Decision regarding lithotripsy of this large stone in the left lower pole will have to be made in the outpatient setting. This could be performed at any time. Otherwise I can see her back in 6 months with a KUB. . Estimated Blood Loss: 0 ml. Complications: None. Anesthesia type: General. Normal [facility] Comment on above: Result Comment: Elec tronically Signed By: Benjy JOHNSON MD.patience\Date and Time Signed: 09/24/24 15:05 EST Outpatient Surgery Discharge Instructionon 09-24-2024 Outpatient Surgery Discharge Instruction Outpatient Surgery Discharge Instruction [address] [address] Patient Discharge Instructions PERSON INFORMATION Name: MELISSA DUBOSE Date of : 1960 Current Date: 09/24/2024 15:01:43 PHYSICIANS Admitting Physician: Benjy JOHNSON MD Discharge Diagnosis: MELISSA DUBOSE has been given the following list of follow-up instructions, prescriptions, and patient education materials: PATIENT FOLLOW-UP INFORMATION Diet: Calorie Controlled- 2000 Calorie Diet Discharge Activity: Arrange for a responsible adult supervision for 24 hours, Expect mild pain, Expect minimal amount of drainage and/or bleeding Discharge Restrictions: No driving, Do not operate machinery or tools, Do not make important decisions for 24 hours, Do not drink alcoholic beverages for 24 hours Call Your Doctor For: Persistent or heavy bleeding, Temperature above 101.5 degrees IF UNABLE TO CONTACT YOUR PHYSICIAN AND YOU FEEL IT IS AN EMERGENCY, GO TO THE NEAREST EMERGENCY ROOM OR CALL 911 I, MELISSA DUBOSE, have received the attached patient education materials/instructions and have verbalized understanding: May we do a follow up call? Yes No I was present when discharge instructions were given __ Patient Signature Date Clinican/Nurse Signature Date Follow up: With: Address: When: Benjy JOHNSON [address] [place] [address], [address], [address] [address] [facility] (1) Comments: Call for followup appointment. I found no obvious abnormality in the bladder or by shooting the x-ray dye up into the kidneys. As we discussed I did collect a saline solution after pushing it up into each kidney. You do have the left-sided kidney stone which at some point, we could consider treating with stone busting. The timing of that is up to you. 1 option would be to simply see her back in about 6 months with an abdominal x-ray. The other option would be to set you up for external stone busting which may require an indwelling stent due to the size of the stone. It is currently sitting in the bottom of the left kidney. I still do not think this is the reason for the intermittent blood in the urine but it is a possibility. Please finish antibiotics which I prescribed for you and I did send into the pharmacy. Have a great day. Pharmacy Information: You may receive a survey from [employer] asking you to rate your care experience. Your feedback is important and will help us understand what we do well and how we can improve the quality of care we provide to you, your loved ones and our community. It???s an honor to serve you. Thank you for choosing [facility] HERE ARE THE MEDICATION CHANGES THAT OCCURRED DURING YOUR HOSPITAL STAY New Medications [facility], [address] [place], [place] [phone], [phone] sulfamethoxazole-trimethopri m (Bactrim D.S. 800 mg-160 mg Tab) 1 Tablets By Mouth 2 times a day. Refills: 0. Medications to Continue Taking That Have Changed Other Medications START: metoprolol (metoprolol succinate 50 mg ER Tab) 2 Tablets By Mouth every day. to equal 100mg.. START: spironolactone (spironolactone 25 mg Tab) 1 Tablets By Mouth every day. TAKE 1/2 (ONE-HALF) OF A TABLET BY MOUTH IN THE MORNING. Medications to Continue with No Changes Other Medications acetaminophen 1,000 Milligram By Mouth 2 times a day as needed as needed for pain. amlodipine (amLODIPine 10 mg Tab) 1 Tablets By Mouth. apixaban (Eliquis 5 mg oral tablet) 1 Tablets By Mouth 2 times a day. TAKE 1 TABLET BY MOUTH TWICE DAILY. atorvastatin (atorvastatin 40 mg Tab) 1 Tablets By Mouth every day. TAKE 1 TABLET BY MOUTH AT BEDTIME. canagliflozin (Invokana 100 mg oral tablet) 1 Tablets By Mouth every day. ezetimibe (ezetimibe 10 mg Tab) 1 Tablets By Mouth every day. TAKE 1 TABLET BY MOUTH DAILY. lidocaine topical (lidocaine Top 5% film Patch) 1 Patches Topical every day. apply 1 patch TO THE AFFECTED AREA(S) DAILY leave on for 12 hours and off for 12 hours. metformin (metformin 500 mg Tab) By Mouth every day. pantoprazole (Pantoprazole [address] Tab) 1 Tablets By Mouth every day. TAKE 1 TABLET BY MOUTH DAILY. sacubitril-valsartan (Entresto 97 mg-103 mg oral tablet) 1 Tablets By Mouth 2 times a day. TAKE 1 TABLET BY MOUTH TWICE DAILY (IN THE MORNING and AT BEDTIME). sitagliptin (Januvia 100 mg Tab) By Mouth every day. tizanidine (tiZANidine 4 mg Tab) 1 Tablets By Mouth at bedtime. TAKE 2 TABLETS BY MOUTH AT BEDTIME. PATIENT EDUCATION INFORMATION Instructions: Medication Leaflets: [facility] XR Chest 2 Viewson XR Chest 2 Views Exam Date/Time: 09/17/2024 14:19 EST Reason for Exam: P.A.T. Report IMPRESSION: NO EVIDENCE OF ACTIVE CARDIOPULMONARY DISEASE. EXAM: XR Chest 2 Views DATE: 09/17/2024 2:08 PM CLINICAL HISTORY: P.A.T.. History of coronary artery disease, CABG, and smoker. COMPARISON: None available. TECHNIQUE: Upright PA and lateral radiographs of the chest were obtained. FINDINGS: There is no significant pulmonary infiltrate, cardiomegaly, pleural effusion, vascular congestion, pneumothorax, or displaced fractures identified. Ordering Provider: Aristeo Bhakta FINAL REPORT Dictated: 09/19/2024 4:11 pm Ruiz Redd MD Signed (Electronic Signature): 09/19/2024 4:11 pm Signed by: Ruiz Redd MD Transcribed by: DP Technologist: SARA Technical Comments Radiation Dose: Ka,r in mGy = na DAP = na Normal [facility] BMPon 09-17-2024 Anion gap [Moles/Vol] 14 mmol/L Normal 6-16 [facility] Comment on above: Performed By: #### [id number] #### [place] [facility] [address] [place] [address] Calcium [Mass/Vol] 10.2 mg/dL Normal 8.9-11.1 [facility] Comment on above: Performed By: #### 2 [id number] #### [facility] [address] [place] [address] Chloride [Moles/Vol] 103 mmol/L Normal 101-[address] [facility] Comment on above: Performed By: #### 2 [id number] #### [facility] [address] [place] [address] CO2 [Moles/Vol] 25 mmol/L Normal 21-31 [facility] Comment on above: Performed By: #### 2 [id number] #### [facility] [address] [place] [address] Creatinine [Mass/Vol] 1.1 mg/dL Normal 0.5-1.3 [facility] Comment on above: Performed By: #### 2 [id number] #### [facility] [address] [place] [address] Glucose [Mass/Vol] 155 mg/dL Normal 55-199 [facility] Comment on above: Performed By: #### 2 [id number] #### [facility] [address] [place] [address] Potassium [Moles/Vol] 4.5 mmol/L Normal 3.5-5.3 [facility] Comment on above: Performed By: #### 2 [id number] #### [facility] [address] [place] [address] Sodium [Moles/Vol] 137 mmol/L Normal 135-145 [facility] Comment on above: Performed By: #### 2 [id number] #### [facility] [address] [place] [address] Urea nitrogen [Mass/Vol] 25 mg/dL High 5-21 [facility] Comment on above: Performed By: #### 2 [id number] #### [facility] [address] [place] [address] Urea nitrogen/Creatinine [Mass ratio] 23 No Units High 10-20 [facility] Comment on above: Performed By: #### 2 [id number] #### [facility] [address] [place] [address] CBC w/ Auto Diffon 5 Basophils/100 WBC (Bld) 0.5 % Normal 0.0-2.0 [facility] Comment on above: Performed By: #### 2 [id number] #### [facility] [address] [place] [address] Basophils/Leukocytes Auto (Bld) [Pure # fraction] 0.0 E9/L Normal 0.0-0.2 [facility] Comment on above: Performed By: #### 2 [id number] #### [facility] [address] [place] [address] Eosinophils (Bld) [#/Vol] 0.1 E9/L Normal 0.0-0.5 [facility] Comment on above: Performed By: #### 2 [id number] #### [facility] [address] [place] [address] Eosinophils/100 WBC (Bld) 1.0 % Normal 0.0-8.0 [facility] Comment on above: Performed By: #### 2 [id number] #### [facility] [address] [place] [address] Erythrocyte distribution width (RBC) [Ratio] 13.7 % Normal 10.9-14.2 [facility] Comment on above: Performed By: #### 2 [id number] #### [facility] [address] [place] [address] Hematocrit (Bld) [Volume fraction] 45.5 % Normal 34.0-46.0 [facility] Comment on above: Performed By: #### 2 [id number] #### [facility] [address] [place] [address] Hemoglobin (Bld) [Mass/Vol] 15.5 g/dL Normal 12.0-16.0 [facility] Comment on above: Performed By: #### 2 [id number] #### [facility] [address] [place] [address] Lymphocytes (Bld) [#/Vol] 1.7 E9/L Normal 1.0-4.0 [facility] Comment on above: Performed By: #### 2 [id number] #### [facility] [address] [place] [address] Lymphocytes/100 WBC (Bld) 19.8 % Normal 14.0-50.0 [facility] Comment on above: Performed By: #### 2 [id number] #### [facility] [address] [place] [address] MCH (RBC) [Entitic mass] 31.9 pg Normal 27.0-34.0 [facility] Comment on above: Performed By: #### 2 [id number] #### [facility] [address] [place] [address] MCHC (RBC) [Mass/Vol] 34.0 g/dL Normal 31.4-36.0 [facility] Comment on above: Performed By: #### 2 [id number] #### [facility] [address] [place] [address] MCV (RBC) [Entitic vol] 93.9 fL Normal 80.0-100.0 [facility] Comment on above: Performed By: #### 2 [id number] #### [facility] [address] [place] [address] Monocytes (Bld) [#/Vol] 0.7 E9/L Normal 0.2-1.0 [facility] Comment on above: Performed By: #### 2 [id number] #### [facility] [address] [place] [address] Neutrophils (Bld) [#/Vol] 6.0 E9/L Normal 2.0-7.5 [facility] Comment on above: Performed By: #### 2 [id number] #### [facility] [address] [place] [address] Neutrophils/100 WBC (Bld) 70.2 % Normal 36.0-75.0 [facility] Comment on above: Performed By: #### 2 [id number] #### [facility] [address] [place] [address] Platelet mean volume (Bld) [Entitic vol] 7.7 fL Normal 6.4-10.8 [facility] Comment on above: Performed By: #### 2 [id number] #### [facility] [address] [place] [address] Platelets (Bld) [#/Vol] 239.0 E9/L Normal 150.0-500. 0 [facility] Comment on above: Performed By: #### 2 [id number] #### [facility] [address] [place] [address] RBC (Bld) [#/Vol] 4.8 E12/L Normal 4.3-5.9 [facility] Comment on above: Performed By: #### 2 [id number] #### [facility] [address] [place] [address] WBC corrected for nucl RBC Auto (Bld) [#/Vol] 8.5 E9/L Normal 4.0-11.0 [facility] Comment on above: Performed By: #### 2 [id number] #### [facility] [address] [place] [address] CHEMISTRYOrdered By: SYSTEM SYSTEM on 09-17-2024 Anion gap [Moles/Vol] 14 mmol/L Normal 6 - 16 mEq/L [facility] Calcium [Mass/Vol] 10.2 mg/dL Normal 8.9 - 11. 1 mg/dL [facility] Chloride [Moles/Vol] 103 mmol/L Normal 101 - 1 11 mmol/L [facility] CO2 [Moles/Vol] 25 mmol/L Normal 21 - 31 mmol/L [facility] Creatinine [Mass/Vol] 1.1 mg/dL Normal 0.5 - 1.3 mg/dL [facility] eGFR 57 mL/min/1.73 m2 Low >=59mL/min /1.73 m2 [facility] Glucose [Mass/Vol] 155 mg/dL Normal 55 - 199 mg/dL [facility] Potassium [Moles/Vol] 4.5 mmol/L Normal 3.5 - 5.3 mmol/L [facility] Sodium [Moles/Vol] 137 mmol/L Normal 135 - 145 mmol/L [facility] Urea nitrogen [Mass/Vol] 25 mg/dL High 5 - 21 mg/dL [facility] Urea nitrogen/Creatinine [Mass ratio] 23 mg/mg High 10 - 20 [facility] COAGULATIONOrdered By: Lluvia Noland on 09-17-2024 aPTT Coag (PPP) [Time] 34.0 s Normal 25.1 - 36.5 second(s) [facility] Comment on above: Interpretive Data: Di aguirre 15 days - 4 weeks 1 - 5 months 6 - 11 months 1 - 5 years 6 - 10 years 11 - 17 years PTT Mean: 35.4 (27.6-45.6) Mean: 33.5 (24.8-40.7) Mean: 32.4 (25.1-40.7) Mean: 31.6 (24.0-39.2) Mean: 31.6 (26.9-38.7) Mean: 31.0 (24.6-38.4) Pediatric Reference ranges were obtained from a study by Mayo Patrick et al. prepared from 1437 samples obtained at 7 different centers using the same coagulation reagent and instrumentation as [facility]. Currently there are no coagulation studies available worldwide for children to 14 days, and no normal ranges. Heparin therapeutic range (represented by Anti-Factor Xa activity of 0.2 - 0.4 U/mL) corresponds to PTT of 56.6 - 109.0 sec. INR Coag (PPP) [Relative time] 1.17 {INR} Invalid Interpretation Code [facility] Comment on above: Interpretive Data: I NR results are specifically intended to assess patients stabilized on long-term Anticoagulation therapy suggested INR s Less Intensive Anticoagulation 2.0 3.0 Conventional Range 3.0 4.5 PT Coag (PPP) [Time] 13.1 s High 9.4 - 1 2.5 second(s) [facility] Comment on above: Interpretive Data: 1 5 days - 4 weeks 1 - 5 months 6 -11 months 1-5 years 6-10 years 11 -17 years Mean: 11.2 (9.5-12.6) Mean: 11.0 (9.7-12.8) Mean: 11.0 (9.8-13.0) Mean: 11.3 (9.9-13.4) Mean: 11.7 (10.0-14.6) Mean: 11.8 (10.0 - 14.1) Pediatric Reference ranges were obtained from a study by Mayo Patrick et al. prepared from 1437 samples obtained at 7 different centers using the same coagulation reagent and instrumentation as [facility]. Currently there are no coagulation studies available worldwide for children to 14 days, and no normal ranges. HEMATOLOGYOrdered By: SYSTEM SYSTEM on 09-17-2024 Basophils/100 WBC (Bld) 0.5 % Normal 0.0 - 2.0 % [facility]e Basophils/Leukocytes Auto (Bld) [Pure # fraction] 0.0 E9/L Normal 0.0 - 0.2 E9/L [facility] Eosinophils (Bld) [#/Vol] 0.1 E9/L Normal 0.0 - 0.5 E9/L [facility] Eosinophils/100 WBC (Bld) 1.0 % Normal 0.0 - 8.0 % [facility] Erythrocyte distribution width (RBC) [Ratio] 13.7 % Normal 10.9 - 14.2 % [facility] Hematocrit (Bld) [Volume fraction] 45.5 % Normal 34.0 - 46.0 % [facility] Hemoglobin (Bld) [Mass/Vol] 15.5 g/dL Normal 12.0 - 16.0 gm/dL [facility] Lymphocytes (Bld) [#/Vol] 1.7 E9/L Normal 1.0 - 4.0 E9/L [facility] Lymphocytes/100 WBC (Bld) 19.8 % Normal 14.0 - 50.0 % [facility] MCH (RBC) [Entitic mass] 31.9 pg Normal 27.0 - 34.0 pg [facility] MCHC (RBC) [Mass/Vol] 34.0 g/dL Normal 31.4 - 36.0 gm/dL [facility] MCV (RBC) [Entitic vol] 93.9 fL Normal 80.0 - 100.0 fL [facility] Monocytes (Bld) [#/Vol] 0.7 E9/L Normal 0.2 - 1.0 E9/L [facility] Monocytes/100 WBC (Bld) 8.5 % Normal 4.0 - 14.0 % [facility] Neutrophils (Bld) [#/Vol] 6.0 E9/L Normal 2.0 - 7.5 E9/L [facility] Neutrophils/100 WBC (Bld) 70.2 % Normal 36.0 - 75.0 % [facility] Platelet mean volume (Bld) [Entitic vol] 7.7 fL Normal 6.4 - 10.8 fL [facility] Platelets (Bld) [#/Vol] 239.0 E9/L Normal 150.0 - 500.0 E9/L [facility] RBC (Bld) [#/Vol] 4.8 E12/L Normal 4.3 - 5.9 E12/L [facility] WBC corrected for nucl RBC Auto (Bld) [#/Vol] 8.5 E9/L Normal 4.0 - 11.0 E9/L [facility] PT & PTTon 09-17-2024 aPTT Coag (PPP) [Time] 34.0 second(s) Normal 25.1-36.5 [facility] Comment on above: Result Comment: Para meter 15 days - 4 weeks 1 - 5 months 6 - 11 months 1 - 5 years 6 - 10 years 11 - 17 years PTT Mean: 35.4 (27.6-45.6) Mean: 33.5 (24.8-40.7) Mean: 32.4 (25.1-40.7) Mean: 31.6 (24.0-39.2) Mean: 31.6 (26.9-38.7) Mean: 31.0 (24.6-38.4) Pediatric Reference ranges were obtained from a study by eladio Lloyd al. prepared from 1437 samples obtained at 7 different centers using the same coagulation reagent and instrumentation as [facility]. Currently there are no coagulation studies available worldwide for children to 14 days, and no normal ranges. Heparin therapeutic range (represented by Anti-Factor Xa activity of 0.2 - 0.4 U/mL) corresponds to PTT of 56.6 - 109.0 sec. Performed By: #### 1 [id number] #### [facility] [address] [place] [address] INR Coag (PPP) [Relative time] 1.17 {INR} Invalid Interpretation Code [facility] Comment on above: Result Comment: INR results are specifically intended to assess patients stabilized on long-term Anticoagulation therapy suggested INR???s ???Less Intensive Anticoagulation??? 2.0 ??? 3.0 Conventional Range 3.0 ??? 4.5 Performed By: #### 1 [id number] #### [facility] [address] [place] [address] PT Coag (PPP) [Time] 13.1 second(s) High 9.4-12.5 [facility] Comment on above: Result Comment: 15 d ays - 4 weeks 1 - 5 months 6 -11 months 1- 5 years 6-10 years 11 -17 years Mean: 11.2 (9.5-12.6) Mean: 11.0 (9.7-12.8) Mean: 11.0 (9.8-13.0) Mean: 11.3 (9.9-13.4) Mean: 11.7 (10.0-14.6) Mean: 11.8 (10.0 - 14.1) Pediatric Reference ranges were obtained from a study by Mayo Patrick et al. prepared from 1437 samples obtained at 7 different centers using the same coagulation reagent and instrumentation as [facility]. Currently there are no coagulation studies available worldwide for children to 14 days, and no normal ranges. Performed By: #### 1 [id number] #### [facility] [address] [place] [address] UA with Cult Rflxon 09-17-19 25 Bilirubin Ql (U) Negative Normal Negative [facility] Comment on above: Performed By: #### 4 [id number] #### [facility] [address] [place] [address] Clarity (U) Clear Normal Clear [facility] Comment on above: Performed By: #### 4 [id number] #### [facility] [address] [place] [address] Color (U) Yellow Normal Yellow [facility] Comment on above: Result Comment: Micr oscopic readings are only performed on those samples that meet specific criteria set forth by [facility]. Performed By: #### 4 [id number] #### [facility] [address] [place] [address] Glucose Ql (U) 4+ mg/dL Abnormal Negative [facility] Comment on above: Performed By: #### 4 [id number] #### [facility] [address] [place] [address] Hemoglobin Auto test strip (U) [Mass/Vol] Negative Normal Negative [facility] Comment on above: Performed By: #### 4 [id number] #### [facility] [address] [place] [address] Ketones Auto test strip Ql (U) Negative Normal Negative [facility] Comment on above: Performed By: #### 4 [id number] #### [facility] [address] [place] [address] Leukocyte esterase Auto test strip Ql (U) Negative Normal Negative [facility] Comment on above: Performed By: #### 4 [id number] #### [facility] [address] [place] [address] Nitrite Auto test strip Ql (U) Negative Normal Negative [facility] Comment on above: Performed By: #### 4 [id number] #### [facility] [address] [place] [address] pH (U) 5.5 [pH] Invalid Interpretation Code 5.0-9.0 [facility] Comment on above: Performed By: #### 4 [id number] #### [facility] [address] [place] [address] Protein Ql (U) Trace Abnormal Negative [facility] Comment on above: Performed By: #### 4 [id number] #### [facility] [address] [place] [address] Specific gravity (U) [Rel density] 1.036 Invalid Interpretation Code 1.005-1.03 0 [facility] Comment on above: Performed By: #### 4 [id number] #### [facility] [address] [place] [id number] Urobilinogen (U) [Mass/Vol] 2 mg/dL Abnormal Negative [facility] Comment on above: Performed By: #### 4 [id number] #### [facility] [address] [place] [id number] Type of Urine collection method Clean Catch Normal [facility] Comment on above: Performed By: #### 4 [id number] #### [facility] [address] [place] [id number] URINALYSISOrdered By: SYSTEM SYSTEM on 09-17-2024 Bilirubin Ql (U) Negative Normal Negativemg /dL [facility] UA Auto SS Clarity (U) Clear (09/17/24 2:03 PM) Normal Clear [facility] UA Auto SS Color (U) Yellow 1 (09/17/24 2:03 PM) Normal Yellow [facility] UA Auto SS Comment on above: Interpretive Data: M icroscopic readings are only performed on those samples that meet specific criteria set forth by [facility]. Glucose Ql (U) 4+ mg/dL Invalid Interpretation Code Negativemg /dL [facility] UA Auto SS Hemoglobin Auto test strip (U) [Mass/Vol] Negative Normal Negativemg /dL [facility] UA Auto SS Ketones Auto test strip Ql (U) Negative Normal Negativemg /dL [facility] UA Auto SS Leukocyte esterase Auto test strip Ql (U) Negative Normal NegativeLe u/uL [facility] UA Auto SS Nitrite Auto test strip Ql (U) Negative Normal Negativemg /dL [facility] UA Auto SS pH (U) 5.5 *NA* (09/17/24 2:03 PM) Invalid Interpretation Code 5.0 - 9.0 [facility] UA Auto SS Protein Ql (U) Trace mg/dL Invalid Interpretation Code Negativemg /dL [facility] UA Auto SS Specific gravity (U) [Rel density] 1.036 *NA* (09/17/24 2:03 PM) Invalid Interpretation Code 1.005 - 1.030 [facility] UA Auto SS Urobilinogen (U) [Mass/Vol] 2 mg/dL Invalid Interpretation Code Negativemg /dL [facility] UA Auto SS URINALYSISOrdered By: Jp Liu on 09-17-2024 UA Spec Desc Clean Catch (09/17/24 2:03 PM) Normal [facility] UA Auto SS eGFRon 09-17-2024 eGFR 57 mL/min/1.73 m2 Low >=59 [facility] Comment on above: Performed By: #### 1 [id number] #### [facility] [address] [place] [address] 36on 09-07-[address] Leroy and Dr. Mendez to get a fax number and gave the Medical Records fax number on Dr. SOLOMON> no answer and office. Normal [facility] Fish and Urine Cyt o ([facility])on 08-26-2024 UVFISH & UC Diagnosis Info Invalid Interpretation Code [facility] Comment on above: Result Comment: A:Ur ine,Bladder Wash:Bladder Wash Diagnosis Summary - Adequate cellularity for evaluation. Diagnosis Summary - The UroV[facility]ion FISH study detected normal copy numbers for chromosomes 3, 7, 17, and 9p21. 200 cells were analyzed in this evaluation. No evidence of aneuploidy for chromosomes 3, 7, or 17 or deletion of the 9p21 locus was found in cells present in this specimen. This test does not rule out the possibility of a low grade non-invasive papillary urothelial carcinoma. These findings should be correlated with cytology and cystoscopy results. * CPT: 72144, 66522. Microscopic Notes - Microscopic Notes - Abnormal cells 9p21 deletions: Abnormal cells aneploid events: Total cells analyzed: 200 Hematuria: Gross Description Site ID:A color Yellow fixative Alcohol Received 80 mls of clear yellow fluid with the patient's name and, Bladder Wash on the vial. Electronically signed by : on: 08/26/2024 16:06:35 Performed By: #### 1 [id number] #### [facility] [address] [place] [address] Office Visiton 08-24-2024 Follow-up visit [id number] Chung Dubose 1960 F Date Provider Department Center 08/24/2024 JUSTINE NOLAN Milly Aida Family History Problem Relation Age of Onset Diabetes Mother Atrial fibrillation Mother Hyperlipidemia Mother Kidney disease Sister Heart attack Maternal Grandmother Stroke Maternal Grandmother Family Status - Relation Status Age at Mother Sister Maternal Grandmother Level of Service:44068 AR OFFICE/OUTPATIENT ESTABLISHED MOD MDM 30 MIN Normal [facility] Ambulatory Visit Summaryon 1 10-21-2023 Ambulatory Visit Summary Ambulatory Visit Summary MELISSA DUBOSE :1960 Visit Date:08/20/2024 Ambulatory Visit Instructions Your Diagnosis Gross hematuria Adrenal mass Kidney stones OAB (overactive bladder) Former smoker Anticoagulated Your Care Team Attending Physician - Benjy JOHNSON MD Primary Care Physician - Madison Magana MD This Is Your Medications List cephalexin (Keflex 500 mg Cap) Contact prescribing physician if questions or concerns [...] tizanidine (tiZANidine 4 mg Tab) Procedures Performed Flexible cystoscope (08/20/2024), Cardioversion (01/2024), Cardiac catheter, Cholecystectomy, Colonoscopy, History of coronary artery bypass grafting.., Hysterectomy, Spine. Discharge Vitals Heart Rate (Peripheral) 80 Respiratory Rate 16 Blood Pressure 104/68 Height 178 cm Height 70 in Weight 105 kg Weight 231.485 lb BMI 33.14 What to do next You Need to Schedule the Following Appointments Follow Up with SHANNAN HO, AJ Jean When: Where: [address] [place] [phone]- Medications What How Much When Instructions Unchanged cephalexin (Keflex 500 mg Cap) 1 Capsules By Mouth 2 times a day Take 1 cap day prior to procedure and 1 cap day of procedure - afterwards Unchanged amiodarone (amiodarone 200 mg Tab) 1 [...] Contact prescribing physician if questions or concerns Medications and Immunizations Administered Given lidocaine Top 2% Gel w/Appl 6 mL, 6 mL, Topical. For: Gross hematuria, Adrenal mass, Former smoker Allergies No Known Allergies Problems Ongoing - [...] be visible in the urine, or it (more content not included)... Normal [facility] Fish and Urine Cyt o ([facility])on 08-20-2024 [facility] Method of Extraction Bladder Wash Normal [facility] Comment on above: Performed By: #### 1 [id number] #### [facility] [address] [place] [address] [facility] Number of Jars 1 Invalid Interpretation Code [facility] Comment on above: Performed By: #### 1 [id number] #### [facility] [address] [place] [address] [facility] Specimen Bladder Wash Normal [facility] Comment on above: Performed By: #### 1 [id number] #### [facility] [address] [place] [address] [facility] Type of Service Technical Only Normal [facility] Comment on above: Performed By: #### 1 [id number] #### [facility] [address] [place] [address] Urology Office/Clinic Noteon 08-20-2024 Urology Office/Clinic Note Urology Office/Clinic Note Chief Complaint cysto HPI Staff Cysto ABX taken. Pt has been peeing blood since saturday, got worse over the weekend. History of Present Illness Tests reviewed: cytology, CTs I have reviewed the previous health record information and history for this patient from HILTON Chung APRN. I have reviewed and verified the staff HPI to be accurate for this encounter. Review of Systems PHQ Score Initial Depression Screen Score: 0 SCORE ROS - Provider Constitutional: denies weight loss, denies hot flashes. Eyes: denies eye problems. Gastrointestinal: denies nausea, denies vomiting. Cardiovascular: denies chest pain or angina. Integumentary: no dryness Musculoskeletal: denies musculoskeletal symptoms. ENMT: denies otolaryngeal symptoms. Respiratory: no shortness of breath. Heme/Lymph: denies easy bleeding tendency, denies easy bruising tendency. Psychiatric: no confusion, no anxiety. Genitourinary: See HPI. Physical Exam Vitals & Measurements HR: 80(Peripheral) RR: 16 BP: 104/68 HT: 70 in HT: 178 cm WT: 105 kg WT: 231.485 lb BMI: 33.14 General Appearance: alert, no distress, well nourished, well developed male. Genitourinary: normal scrotum, normal testes, normal urethra, normal epididymis, normal vas deferens/spermatic cord. Flank Pain: none. Bladder: nonpalpable. Procedure Operative Information Anesthesia Type: Local Procedure: Local Cystoscopy Complications: None Surgical risks, benefits, details of the procedure have been explained to the patient. Full informed consent has been obtained. Intraoperative Information Prepped: Patient is brought back to the endoscopy suite. Patient is placed in modified dorso/lithotomy position. Patient prepped in the usual fashion with Betadine solution. 2% Xylocaine Jelly is placed per Urethra. After waiting several minutes, the Cystoscope is introduced. The Urethra is: Normal The Bladder: _No tumors or stones, Trabeculated: Moderate (2) The Ureteral orifices: Show efflux of clear urine Specimens Removed: Bladder wash sent for FISH. Removal: Cystoscope is removed. The patient tolerated it well. Postoperative Information Patient is discharged home with antibiotic coverage. Follow up arranged. Assessment/Plan Last seen by AO. 1. Gross hematuria (R31.0: Gross hematuria) Two episodes of gross hematuria wo pain, change in urinary sx, or stone passage. Hematuria lasted several days. PCP has been noting microscopic hematuria in her urine for about a year. [1] AURELIO 12/24/23 - 3 mm echogenic foci in the midpole of the right kidney likely nonobstructing nephrolith. Multiple echogenic foci on the left measuring 6 mm, possibly nonobstructing nephrolithiasis. No bladder abnormality, ureteral jets not visualized. CT AP w con 11/26/23 - 1.7 cm left adrenal nodule. Nonobstructive left intrarenal calculi. CT AP wo con 12/02/23 - 2 cm left adrenal nodule, nonobstructing left stones. No bladder abnormality. Cytology neg. Pt had IO cysto today wo complications. Will send bladder wash specimen for FISH and call pt if positive. Recommended cysto, BL RPGs, and BL ureteral wash cytologies. R/Bs discussed. May require referral to tertiary center. Will schedule cysto, BL RPGs, and BL ureteral wash cytologies. The procedural risks, benefits, details, and treatment alternatives have been discussed with the patient. These include bleeding, infection, injury to the ureter (the tube which connects the kidney to the bladder), injury to the kidney scarring of the ureter, and need for repeat procedures, among others. Full informed consent has been obtained. Will order General anesthesia. 2. Adrenal mass (E27.8: Other specified disorders of adrenal gland) CT AP w con 11/26/23 - 1.7 cm L adrenal nodule. 30 HU, indeterminate. CT AP wo con 12/02/23 - 2 cm L adrenal nodule. 9 HU suggesting an adenoma. AO reviewed AI finding with pt and offered to order labs to find out if it is a functional adenoma. Pt did not want to proceed at that time, wanted to discuss with Dr. Magana first (see message from 06/02/24.) Given small size, unlikely to find surgeon to remove, not currently indicated. Briefly discussed workup with blood work. #1 of greater importance currently. Low likelihood of adrenal cancer unless mass would be over 6 cm. Possible functionality of the mass testing could be considered. 3. Kidney stones (N20.0: Calculus of kidney) AURELIO 12/24/23 - 3 mm echogenic foci in the midpole of the right kidney likely nonobstructing nephrolith. Multiple echogenic foci on the left measuring 6 mm, possibly nonobstructing nephrolithiasis. CT AP w con 11/26/23 - Nonobstructive L intrarenal calculi. CT AP wo con 12/02/23 - Nonobstructing L stones. 4. OAB (overactive bladder) (N32.81: Overactive bladder) Previously declined tx. 5. Former smoker (Z87.891: Personal history of nicotine dependence) 1 pack/day, unsure when she quit. [1] Increased risk of urothelial cancer. (more content not included)... Normal [facility] Comment on above: Result Comment: Elec tronically Signed By: Benjy JOHNSON MD\.br\Date and Time Signed: 08/20/24 15:47 EST\.br\Electronically Co-Signed By: Danuta Larson\.br\Date and Time Co-Signed: 08/20/24 15:42 EST Office Visiton 07-29-2024 Follow-up visit [id number] Chung Dubose 1960 F Date Provider Department Center 07/29/2024 JUSTINE NOLAN Family History Problem Relation Age of Onset Diabetes Mother Atrial fibrillation Mother Hyperlipidemia Mother Kidney disease Sister Heart attack Maternal Grandmother Stroke Maternal Grandmother Family Status - Relation Status Age at Mother Sister Maternal Grandmother Level of Service:75761 [place] OFFICE/OUTPATIENT ESTABLISHED MOD MDM 30 MIN [facility] 36on 07-01-2024 36 Patient [facility] into [facility] to ECG. She is not in afib per Dr. Parks. 30 day event monitor was placed. She has follow up in Jul. Vitals: 144/88, HR 53 [facility] 36on 06-30-2024 36 Her echocardiogram o n 06/23/2024 showed EF 20%. I want her to come to the office to obtain an ECG. If she is not in atrial fibrillation, then I want her to wear a event monitor to see if she is having episodes of AF that would explain the low EF. Also please obtain vital signs. Normal [facility] Telephoneon 06-30-2024 Telephone [id number] Chung Dubose 1960 F Date Provider Department Center 06/30/2024 JUSTINE NOLAN Family History Problem Relation Age of Onset Diabetes Mother Atrial fibrillation Mother Hyperlipidemia Mother Kidney disease Sister Heart attack Maternal Grandmother Stroke Maternal Grandmother Family Status - Relation Status Age at Mother Sister Maternal Grandmother Normal [facility] Urine Cytology ([facility])on 0 9-27-2024 Microscopic exam Cytology (U) [Interp] Diagnosis Info Invalid Interpretation Code [facility] Comment on above: Result Comment: A:Ur ine,Clean Catch:Voided Interpretation - Adequate cellularity for evaluation. MicroScopic Description - Adequacy - Adequate Gross Description Site ID:A color Yellow fixative Alcohol Specimen designated Clean Catch received in alcohol preservative and labeled with the patient???s name, consists of 40ml cloudy yellow fluid. Electronically signed by : on: 06/05/2024 15:04:11 Performed By: #### 1 [id number] #### [facility] [address] [place] [address] Ambulatory Visit Summaryon 06-02-2024 Ambulatory Visit Summary Ambulatory Visit Summary MLEISSA DUBOSE :1960 Visit Date:06/02/2024 Ambulatory Visit Instructions Your Diagnosis Gross hematuria Adrenal mass OAB (overactive bladder) Kidney stones Former smoker Anticoagulated Your Care Team Attending Physician - Marciano MACIEL, HILTON, Ashley Sorenson Primary Care Physician - Madison Magana MD This Is Your Medications List Contact [...] Following Appointments Follow Up with SHANNAN HO, Benjy P, URL When: Comments: cysto Where: [address] [place] [id number]- Medications What How Much When Instructions Unchanged [...] that req (more content not included)... Normal [facility] Urine Cytology ([facility])on 0 06-02-2024 Method of Extraction Voided Normal [facility] Comment on above: Performed By: #### 1 [id number] #### [facility] [address] Number of Jars 1 Invalid Interpretation Code [facility] Comment on above: Performed By: #### 1 [id number] #### [facility] [address] [place] [id number] Specimen Clean Catch Normal [facility] Comment on above: Performed By: #### 1 [id number] #### [facility] [address] [place] [id number] Type of Service Technical Only Normal [facility] Comment on above: Performed By: #### 1 [id number] #### [facility] [address] [place] [id number] Urology Office/Clinic Noteon 06-02-2024 Urology Office/Clinic Note Urology Office/Clinic Note Chief Complaint New patient microhematuria HPI Staff 63 yr old female here with referral from Dr Magana for gross hematuria. Had gross hematuria a [...] with voice recognition artificial intelligence software, specifically [employer], Se[employer] and or [employer]. Substitutions may have occurred due to the [...] nodule. Discussed adrenal nodule findings. Will call [facility] radiology for Hounsfield measurements between the contrast and noncontrast images. May need additional lab work versus further workup. Patient will likely need separate discussion regarding this, she was very overwhelmed with hematuria discussion today. -Request for addendum on [facility] CTs 3. OAB (overactive bladder) (N32.81: Overactive [...] nonobstructing nephrol (more content not included)... Normal [facility] Comment on above: Result Comment: Elec tronically Signed By: HILTON Tariq APRN, Ashley Sorenson\.br\Date and Time Signed: 06/02/24 14:44 EDT Office Visiton 05-01-2024 Follow-up visit [id number] Chung Dubose 1960 Date Provider Department Center 05/01/2024 JUSTINE NOLAN [facility] Family History Problem Relation Age of Onset Diabetes Mother Atrial fibrillation Mother Hyperlipidemia Mother Kidney disease Sister Heart attack Maternal Grandmother Stroke Maternal Grandmother Family Status - Relation Status Age at Mother Sister Maternal Grandmother Level of Service:45266 [place] OFFICE/OUTPATIENT ESTABLISHED MOD MDM 30 MIN Normal [facility] Office Visiton 02-19-2024 Follow-up visit [id number] Chung Dubose 1960 Date Provider Department Center 02/19/2024 ANGELLA LI CARD [facility] Family History Problem Relation Age of Onset Diabetes Mother Atrial fibrillation Mother Hyperlipidemia Mother Kidney disease Sister Heart attack Maternal Grandmother Stroke Maternal Grandmother Family Status - Relation Status Age at Mother Sister Maternal Grandmother Level of Service:17418 AR OFFICE/OUTPATIENT ESTABLISHED MOD MDM 30 MIN Normal [facility] Glucose Poct Glucometerson 0 11-25-2023 Glucose [Mass/Vol] 255 mg/dL Normal [facility] Comment on above: Result Comment: [facility] Glucose Reference Range is dependent on time and content of last meal. Glucose of more than 200 mg/dL in a nonstressed, ambulatory subject supports the diagnosis of Diabetes Mellitus. PERFORMED BY: [place] [address] PATHOLOGIST PATCHER HELPER SUNNI CH M.D. Performed By: #### P T, PTT #### [address] Basic Metabolic Panelon 03- Anion gap [Moles/Vol] 10.9 mmol/L Normal 6.0-15.0 Th [facility] Comment on above: Performed By: #### P T, PTT #### [place] [address] [place] Calcium [Mass/Vol] 9.0 mg/dL Normal 8.6-10.3 [facility] Comment on above: Performed By: #### P T, PTT #### [place] [address] [place] Chloride [Moles/Vol] 100 mmol/L Normal 98-107 [facility] Comment on above: Performed By: #### P T, PTT #### [place] [address] [place] CO2 [Moles/Vol] 30.8 mmol/L Normal 21.0-31.0 [facility] Comment on above: Performed By: #### P T, PTT #### [place] [address] [place] Creatinine [Mass/Vol] 0.91 mg/dL Normal 0.60-1.20 [facility] Comment on above: Performed By: #### P T, PTT #### [place] [address] [place] Creatinine Clr Calc Pharmacy 85.70 Normal [facility] Comment on above: Result Comment: PERF ORMED BY: [place] [address] PATHOLOGIST PATCHER HELPER SUNNI CH M.D. Performed By: #### P T, PTT #### [place] [address] [place] GFR/1.73 sq M.predicted MDRD (S/P/Bld) [Vol rate/Area] mL/min/{1.73_m2} Normal [facility] Comment on above: Performed By: #### P T, PTT #### [place] [address] [place] Glucose [Mass/Vol] 259 mg/dL Significant change up 70-100 [facility] Comment on above: Result Comment: [place] Glucose Reference Range is dependent on time and content of last meal. Glucose of more than 200 mg/dL in a nonstressed, ambulatory subject supports the diagnosis of Diabetes Mellitus. ADA recommended reference range Performed By: #### P T, PTT #### [facility] [address] Potassium [Moles/Vol] 3.7 mmol/L Normal 3.5-5.1 [facility] Comment on above: Performed By: #### P T, PTT #### [facility] [address] Sodium [Moles/Vol] 138 mmol/L Normal 136-145 [facility] Comment on above: Performed By: #### P T, PTT #### [facility] [address] Urea nitrogen [Mass/Vol] 23 mg/dL Normal 7-25 [facility] Comment on above: Performed By: #### P T, PTT #### [facility] [address] Calcium [Mass/volume] in Ser um or PlasmaOrdered By: Winter Norris on 11-24-2023 Calcium [Mass/Vol] 9.0 mg/dL 8.6-10.3 [facility] Carbon dioxide, total [Moles /volume] in Serum or PlasmaOrdered By: Winter Norris on 11-24-2023 CO2 [Moles/Vol] 30.8 mmol/L 21.0-31.0 [facility] Chloride [Moles/volume] in S mehreen or PlasmaOrdered By: Winter Norris on 11-24-2023 Chloride [Moles/Vol] 100 mmol/L 98-107 [facility] Creatinine [Mass/volume] in Serum or PlasmaOrdered By: Winter Norris on 11-24-2023 Creatinine [Mass/Vol] 0.91 mg/dL 0.60-1.20 [facility] Glucose Glucometer (BldC) [M ass/Vol]Ordered By: Winter Norris on 11-24-2023 Glucose [Mass/Vol] 271 mg/dL [facility] Comment on above: Random Glucose Refer ence Range is dependent on time and content of last meal. Glucose of more than 200 mg/dL in a nonstressed, ambulatory subject supports the diagnosis of Diabetes Mellitus. Glucose Poct Glucometerson 0 11-24-2023 Glucose [Mass/Vol] 271 mg/dL Normal [facility] Comment on above: Result Comment: [place] Glucose Reference Range is dependent on time and content of last meal. Glucose of more than 200 mg/dL in a nonstressed, ambulatory subject supports the diagnosis of Diabetes Mellitus. PERFORMED BY: [place] [id number] PATHOLOGIST PATCHER HELPER SUNNI CH M.D. Performed By: #### G LULS #### Point of Care testing , Glucose [Mass/Vol] 337 mg/dL Normal [facility] Comment on above: Result Comment: [place] Glucose Reference Range is dependent on time and content of last meal. Glucose of more than 200 mg/dL in a nonstressed, ambulatory subject supports the diagnosis of Diabetes Mellitus. PERFORMED BY: [place] [id number] PATHOLOGIST PATCHER HELPER SUNNI CH M.D. Performed By: #### P T, PTT #### [address] Glucose [Mass/Vol] 238 mg/dL Normal [facility] Comment on above: Result Comment: [place] Glucose Reference Range is dependent on time and content of last meal. Glucose of more than 200 mg/dL in a nonstressed, ambulatory subject supports the diagnosis of Diabetes Mellitus. PERFORMED BY: [address] [address] PATHOLOGIST PATCHER HELPER SUNNI CH M.D. Performed By: #### P T, PTT #### [address] Glucose [Mass/Vol] 173 mg/dL Normal [facility] Comment on above: Result Comment: [place] Glucose Reference Range is dependent on time and content of last meal. Glucose of more than 200 mg/dL in a nonstressed, ambulatory subject supports the diagnosis of Diabetes Mellitus. PERFORMED BY: [place] [address] PATHOLOGIST PATCHER HELPER SUNNI CH M.D. Performed By: #### P T, PTT #### [facility] [address] Glucose [Mass/volume] in Ser um or PlasmaOrdered By: Winter Norris on 11-24-2023 Glucose [Mass/Vol] 259 mg/dL 70-100 [facility] Comment on above: [place]: 133 on -700ADA recommended reference rangeRandom Glucose Reference Range is dependent on time and content of last meal. Glucose of more than 200 mg/dL in a nonstressed, ambulatory subject supports the diagnosis of Diabetes Mellitus. No Panel InformationOrdered By: Winter Norris on 11-24-2023 Estimated GFR (CKD-EPI) > 60.0 mL/Min [facility] Creatinine Clearance (Chem 85.70 [facility] Potassium [Moles/volume] in Serum or PlasmaOrdered By: Winter Norris on 11-24-2023 Potassium [Moles/Vol] 3.7 mmol/L 3.5-5.1 [facility] Serum or plasma anion gap de terminationOrdered By: Winter Norris on 11-24-2023 Anion gap [Moles/Vol] 10.9 mmol/L 6.0-15.0 [facility] Sodium [Moles/volume] in Ser um or PlasmaOrdered By: Winter Norris on 11-24-2023 Sodium [Moles/Vol] 138 mmol/L 136-145 [facility] Urea nitrogen [Mass/volume] in Serum or PlasmaOrdered By: Winter Norris on 11-24-2023 Urea nitrogen [Mass/Vol] 23 mg/dL 7-25 [facility] Basic Metabolic Panelon 11-07 Anion gap [Moles/Vol] 11.8 mmol/L Normal 6.0-15.0 e [facility] Comment on above: Performed By: #### B MP, CBC #### [facility] [address] [place] [address] Calcium [Mass/Vol] 9.2 mg/dL Normal 8.6-10.3 [facility] Comment on above: Performed By: #### B MP, CBC #### [address] Chloride [Moles/Vol] 103 mmol/L Normal 98-107 [facility] Comment on above: Performed By: #### B MP, CBC #### [address] CO2 [Moles/Vol] 29.1 mmol/L Normal 21.0-31.0 [facility] Comment on above: Performed By: #### B MP, CBC #### [address] Creatinine [Mass/Vol] 0.94 mg/dL Normal 0.60-1.20 [facility] Comment on above: Performed By: #### B MP, CBC #### [address] Creatinine Clr Calc Pharmacy 82.97 Normal [facility] Comment on above: Result Comment: PERF ORMED BY: [place] [address] PATHOLOGIST PATCHER HELPER SUNNI CH M.D. Performed By: #### B MP, CBC #### [address] GFR/1.73 sq M.predicted MDRD (S/P/Bld) [Vol rate/Area] mL/min/{1.73_m2} Normal [facility] Comment on above: Performed By: #### B MP, CBC #### [address] Glucose [Mass/Vol] 133 mg/dL High 70-100 [facility] Comment on above: Result Comment: [place] Glucose Reference Range is dependent on time and content of last meal. Glucose of more than 200 mg/dL in a nonstressed, ambulatory subject supports the diagnosis of Diabetes Mellitus. ADA recommended reference range Performed By: #### B MP, CBC #### [address] Potassium [Moles/Vol] 3.9 mmol/L Normal 3.5-5.1 [facility] Comment on above: Performed By: #### B MP, CBC #### [address] Sodium [Moles/Vol] 140 mmol/L Normal 136-145 [facility] Comment on above: Performed By: #### B MP, CBC #### [address] Urea nitrogen [Mass/Vol] 23 mg/dL Normal 7-25 [facility] Comment on above: Performed By: #### B MP, CBC #### [address] Basophils Auto (Bld) [#/Vol] Ordered By: Winter Norris on 11-23-2023 Basophils (Bld) [#/Vol] 0.0 10*3/uL 0.0-0.2 [facility] Basophils/100 WBC Auto (Bld) Ordered By: Winter Norris on 11-23-2023 Basophils/100 WBC (Bld) 0.1 % . [facility] Complete Blood Count Auto Di ffon 11-23-2023 Basophils (Bld) [#/Vol] 0.0 10*3/uL Normal 0.0-0.2 [facility] Comment on above: Result Comment: PERF ORMED BY: [place] [address] PATHOLOGIST PATCHER HELPER SUNNI CH M.D. Performed By: #### B MP, CBC #### [address] Basophils/100 WBC (Bld) 0.1 % Normal . [facility] Comment on above: Performed By: #### B MP, CBC #### [address] Eosinophils (Bld) [#/Vol] 0.0 10*3/uL Normal 0.0-0.45 [facility] Comment on above: Performed By: #### B MP, CBC #### [place] [address] [place] Eosinophils/100 WBC (Bld) 0.0 % Normal . [facility] Comment on above: Performed By: #### B MP, CBC #### [address] Erythrocyte distribution width (RBC) [Ratio] 15.3 % Normal 11.9-15.3 [facility] Comment on above: Performed By: #### B MP, CBC #### [address] Hematocrit (Bld) [Volume fraction] 40.4 % Normal 34.0-46.4 [facility] Comment on above: Performed By: #### B MP, CBC #### [address] Hemoglobin (Bld) [Mass/Vol] 13.1 g/dL Normal 11.8-15.4 [facility] Comment on above: Performed By: #### B MP, CBC #### [address] Lymphocytes (Bld) [#/Vol] 1.7 10*3/uL Normal 1.00-4.8 [facility] Comment on above: Performed By: #### B MP, CBC #### [place] [address] [place] Lymphocytes/100 WBC (Bld) 17.7 % Normal . [facility] Comment on above: Performed By: #### B MP, CBC #### [address] MCH (RBC) [Entitic mass] 28.2 pg Normal 24.7-34.3 [facility] Comment on above: Performed By: #### B MP, CBC #### [address] MCV (RBC) [Entitic vol] 86.9 fL Normal 80-100 [facility] Comment on above: Performed By: #### B MP, CBC #### [address] Mean Corpuscular HGB Conc 32.4 g/dL Normal 32.0-35.0 [facility] Comment on above: Performed By: #### B MP, CBC #### [address] Monocytes (Bld) [#/Vol] 0.9 10*3/uL High 0.0-0.8 [facility] Comment on above: Performed By: #### B MP, CBC #### [address] Monocytes/100 WBC (Bld) 9.5 % Normal . [facility] Comment on above: Performed By: #### B MP, CBC #### [address] Neutrophils (Bld) [#/Vol] 7.0 10*3/uL Normal 1.8-7.7 [facility] Comment on above: Performed By: #### B MP, CBC #### [address] Neutrophils/100 WBC (Bld) 72.7 % Normal . [facility] Comment on above: Performed By: #### B MP, CBC #### [address] NRBC% 0.1 /100{WBC} Normal 0-0.5 [facility] Comment on above: Performed By: #### B MP, CBC #### [address] Platelet mean volume (Bld) [Entitic vol] 8.5 fL Normal 6.3-10.7 [facility] Comment on above: Performed By: #### B MP, CBC #### [place] [address] [place] Platelets (Bld) [#/Vol] 203 10*3/uL Normal 150-450 [facility] Comment on above: Performed By: #### B MP, CBC #### [address] [place] [address] [place] RBC (Bld) [#/Vol] 4.65 10*6/uL Normal 3.60-5.00 [facility] Comment on above: Performed By: #### B MP, CBC #### [facility] [address] WBC (Bld) [#/Vol] 9.6 10*3/uL Normal 3.8-11.6 [facility] Comment on above: Performed By: #### B MP, CBC #### [facility] [address] Eosinophils Auto (Bld) [#/Vo l]Ordered By: Winter Norris on 11-23-2023 Eosinophils (Bld) [#/Vol] 0.0 10*3/uL 0.0-0.45 [facility] Eosinophils/100 WBC Auto (Bl d)Ordered By: Winter Norris on 11-23-2023 Eosinophils/100 WBC (Bld) 0.0 % . [facility] Erythrocyte distribution wid th Auto (RBC) [Ratio]Ordered By: Winter Norris on 11-23-2023 Erythrocyte distribution width (RBC) [Ratio] 15.3 % 11.9-15.3 [facility] Glucose Poct Glucometerson 0 11-23-2023 Glucose [Mass/Vol] 313 mg/dL Normal [facility] Comment on above: Result Comment: [facility] Glucose Reference Range is dependent on time and content of last meal. Glucose of more than 200 mg/dL in a nonstressed, ambulatory subject supports the diagnosis of Diabetes Mellitus. PERFORMED BY: [place] [address] PATHOLOGIST PATCHER HELPER SUNNI CH M.D. Performed By: #### P T, PTT #### [address] Commemt1 Glu2: Cleaned Meter Normal [facility] Comment on above: Result Comment: PERF ORMED BY: [place] [address] PATHOLOGIST PATCHER HELPER SUNNI CH M.D. Performed By: #### B MP, CBC #### [address] Glucose [Mass/Vol] 307 mg/dL Normal [facility] Comment on above: Result Comment: [place] Glucose Reference Range is dependent on time and content of last meal. Glucose of more than 200 mg/dL in a nonstressed, ambulatory subject supports the diagnosis of Diabetes Mellitus. Performed By: #### B MP, CBC #### [place] [address] [place] Commemt1 Glu2: Cleaned Meter Normal [facility] Comment on above: Result Comment: PERF ORMED BY: [place] [address] PATHOLOGIST PATCHER HELPER SUNNI CH M.D. Performed By: #### P T, PTT #### [place] [address] [place] Glucose [Mass/Vol] 131 mg/dL Normal [facility] Comment on above: Result Comment: [place] Glucose Reference Range is dependent on time and content of last meal. Glucose of more than 200 mg/dL in a nonstressed, ambulatory subject supports the diagnosis of Diabetes Mellitus. Performed By: #### P T, PTT #### [address] Commemt1 Glu2: Cleaned Meter Normal [facility] Comment on above: Result Comment: PERF ORMED BY: [place] [address] PATHOLOGIST PATCHER HELPER SUNNI CH M.D. Performed By: #### P T, PTT #### [place] [address] [place] Glucose [Mass/Vol] 140 mg/dL Normal [facility] Comment on above: Result Comment: [place] om Glucose Reference Range is dependent on time and content of last meal. Glucose of more than 200 mg/dL in a nonstressed, ambulatory subject supports the diagnosis of Diabetes Mellitus. Performed By: #### P T, PTT #### [address] [address] [facility] Hematocrit Auto (Bld) [Volum e fraction]Ordered By: Winter Norris on 11-23-2023 Hematocrit (Bld) [Volume fraction] 40.4 % 34.0-46.4 [facility] Hemoglobin [Mass/volume] in BloodOrdered By: Winter Norris on 11-23-2023 Hemoglobin (Bld) [Mass/Vol] 13.1 g/dL 11.8-15.4 [facility] Leukocytes [#/volume] correc nargis for nucleated erythrocytes in Blood by Automated counOrdered By: Winter Norris on 11-23-2023 WBC corrected for nucl RBC Auto (Bld) [#/Vol] 9.6 10*3/uL 3.8-11.6 [facility] [facility] Lymphocytes Auto (Bld) [#/Vo l]Ordered By: Winter Nroris on 11-23-2023 Lymphocytes (Bld) [#/Vol] 1.7 10*3/uL 1.00-4.8 [facility] Lymphocytes/100 WBC Auto (Bl d)Ordered By: Winter Norris on 11-23-2023 Lymphocytes/100 WBC (Bld) 17.7 % . [facility] MCH Auto (RBC) [Entitic mass ]Ordered By: Winter Norris on 11-23-2023 MCH (RBC) [Entitic mass] 28.2 pg 24.7-34.3 [facility] MCHC Auto (RBC) [Mass/Vol]Or dered By: Winter Norris on 11-23-2023 MCHC (RBC) [Mass/Vol] 32.4 g/dL 32.0-35.0 [facility] MCV Auto (RBC) [Entitic vol] Ordered By: Winter Norris on 11-23-2023 MCV (RBC) [Entitic vol] 86.9 fL 80-100 [facility] Monocytes Auto (Bld) [#/Vol] Ordered By: Winter Norris on 11-23-2023 Monocytes (Bld) [#/Vol] 0.9 10*3/uL 0.0-0.8 [facility] Monocytes/100 WBC Auto (Bld) Ordered By: Winter Norris on 11-23-2023 Monocytes/100 WBC (Bld) 9.5 % . [facility] Neutrophils Auto (Bld) [#/Vo l]Ordered By: Winter Norris on 11-23-2023 Neutrophils (Bld) [#/Vol] 7.0 10*3/uL 1.8-7.7 [facility] Neutrophils/100 WBC Auto (Bl d)Ordered By: Winter Norris on 11-23-2023 Neutrophils/100 WBC (Bld) 72.7 % . [facility] No Panel InformationOrdered By: Winter Norris on 11-23-2023 Bedside Glucose Comment Glu2: cleaned meter [facility] Nucleated erythrocytes [Pres ence] in Blood by Automated countOrdered By: Winter Norris on 11-23-2023 Nucleated RBC Auto Ql (Bld) 0.1 /100{WBC} 0-0.5 [facility] Platelet mean volume Auto (B ld) [Entitic vol]Ordered By: Winter Norris on 11-23-2023 Platelet mean volume (Bld) [Entitic vol] 8.5 fL 6.3-10.7 [facility] Platelets Auto (Bld) [#/Vol] Ordered By: Winter Norris on 11-23-2023 Platelets (Bld) [#/Vol] 203 10*3/uL 150-450 [facility] RBC Auto (Bld) [#/Vol]Ordere d By: Winter Norris on 11-23-2023 RBC (Bld) [#/Vol] 4.65 10*6/uL 3.60-5.00 [facility] WBC Auto (Bld) [#/Vol]Ordere d By: Winter Norris on 11-23-2023 WBC (Bld) [#/Vol] 9.6 10*3/uL 3.8-11.6 [facility] XR chest 1V portableon 11-22 XR chest 1V portable [facility] [place] [address] XRay Report Signed Patient: Melissa Dubose MR#: [id number] 68 : 1960 Acct:[id number] Age/Sex: 63 / F ADM Date: 11/21/23 Loc: Room: [address] [place] [address] Type: ADM IN Attending Dr: Winter Norris [...] Orville Oliver M.D.11/23/2023 10:44 AM Dictation Location: [place] [address] Transcribed By: [facility] 11/23/23 1044 Dictated By: Orville Oliver II, MD 11/23/23 1043 Signed By: 11/23/23 1044 Normal [facility] Activated partial thrombopla stin time (aPTT) in platelet poor plasma by coagulation aOrdered By: Justine Jacobo on 11-22-2023 aPTT Coag (PPP) [Time] 27.6 s 25.1-36.5 [facility] Comment on above: A hematocrit value g reater than 55% may lead to inaccurate results in coagulation testing. Patients having hematocrit values >55% require a special collection tube for coagulation studies. Please contact the laboratory at [phone] for redraw instructions. Blood Urea Nitrogenon 2023 Urea nitrogen [Mass/Vol] 24 mg/dL Normal 7-25 [facility] Comment on above: Performed By: #### P T, PTT #### [address] Coagulation Profileon 2023 aPTT Coag (Bld) [Time] 27.6 s Normal 25.1-36.5 [facility] Comment on above: Result Comment: A he matocrit value greater than 55% may lead to inaccurate results in coagulation testing. Patients having hematocrit values >55% require a special collection tube for coagulation studies. Please contact the laboratory at [phone] for redraw instructions. PERFORMED BY: [place] [address] PATHOLOGIST PATCHER HELPER SUNNI CH M.D. Performed By: #### P T, PTT #### [address] INR Coag (PPP) [Relative time] 1.2 {INR} Normal [facility] Comment on above: Result Comment: [...] Performed By: #### P T, PTT #### [address] PT Coag (PPP) [Time] 14.0 s High 9.0-12.9 [facility] Comment on above: Result Comment: A he matocrit value greater than 55% may lead to inaccurate results in coagulation testing. Patients having hematocrit values >55% require a special collection tube for coagulation studies. Please contact the laboratory at [phone] for redraw instructions. Performed By: #### P T, PTT #### [address] Complete Blood Count Auto Di ffon 11-22-2023 Basophils (Bld) [#/Vol] 0.0 10*3/uL Normal 0.0-0.2 [facility] Comment on above: Result Comment: PERF ORMED BY: [place] [address] PATHOLOGIST PATCHER HELPER SUNNI CH M.D. Performed By: #### P T, PTT #### [facility] [address] [place] [address] [place] Basophils/100 WBC (Bld) 0.1 % Normal . [facility] Comment on above: Performed By: #### P T, PTT #### [facility] [address] [place] [address] [place] Eosinophils (Bld) [#/Vol] 0.0 10*3/uL Normal 0.0-0.45 [facility] Comment on above: Performed By: #### P T, PTT #### [facility] [address] Eosinophils/100 WBC (Bld) 0.0 % Normal . [facility] Comment on above: Performed By: #### P T, PTT #### [address] Erythrocyte distribution width (RBC) [Ratio] 15.2 % Normal 11.9-15.3 [facility] Comment on above: Performed By: #### P T, PTT #### [address] Hematocrit (Bld) [Volume fraction] 36.9 % Normal 34.0-46.4 [facility] Comment on above: Performed By: #### P T, PTT #### [place] [address] [place] Hemoglobin (Bld) [Mass/Vol] 11.9 g/dL Normal 11.8-15.4 [facility] Comment on above: Performed By: #### P T, PTT #### [facility] [address] [place] [address] [place] Lymphocytes (Bld) [#/Vol] 0.6 10*3/uL Low 1.00-4.8 [facility] Comment on above: Performed By: #### P T, PTT #### [place] [address] [place] Lymphocytes/100 WBC (Bld) 10.0 % Normal . [facility] Comment on above: Performed By: #### P T, PTT #### [address] MCH (RBC) [Entitic mass] 28.5 pg Normal 24.7-34.3 [facility] Comment on above: Performed By: #### P T, PTT #### [address] MCV (RBC) [Entitic vol] 88.2 fL Normal 80-100 [facility] Comment on above: Performed By: #### P T, PTT #### [address] Mean Corpuscular HGB Conc 32.4 g/dL Normal 32.0-35.0 [facility] Comment on above: Performed By: #### P T, PTT #### [address] Monocytes (Bld) [#/Vol] 0.6 10*3/uL Normal 0.0-0.8 [facility] Comment on above: Performed By: #### P T, PTT #### [place] [address] [place] Monocytes/100 WBC (Bld) 8.6 % Normal . [facility] Comment on above: Performed By: #### P T, PTT #### [address] Neutrophils (Bld) [#/Vol] 5.3 10*3/uL Normal 1.8-7.7 [facility] Comment on above: Performed By: #### P T, PTT #### [address] Neutrophils/100 WBC (Bld) 81.3 % Normal . [facility] Comment on above: Performed By: #### P T, PTT #### [address] NRBC% 0.1 /100{WBC} Normal 0-0.5 [facility] Comment on above: Performed By: #### P T, PTT #### [address] Platelet mean volume (Bld) [Entitic vol] 8.5 fL Normal 6.3-10.7 [facility] Comment on above: Performed By: #### P T, PTT #### [address] Platelets (Bld) [#/Vol] 177 10*3/uL Normal 150-450 [facility] Comment on above: Performed By: #### P T, PTT #### [address] RBC (Bld) [#/Vol] 4.18 10*6/uL Normal 3.60-5.00 [facility] Comment on above: Performed By: #### P T, PTT #### [address] WBC (Bld) [#/Vol] 6.5 10*3/uL Normal 3.8-11.6 [facility] Comment on above: Performed By: #### P T, PTT #### [address] Creatinineon 11-22-2023 Creatinine [Mass/Vol] 1.15 mg/dL Normal 0.60-1.20 [facility] Comment on above: Performed By: #### P T, PTT #### [address] Creatinine Clr Calc Pharmacy 68.56 Normal [facility] Comment on above: Result Comment: PERF ORMED BY: [place] [address] PATHOLOGIST PATCHER HELPER SUNNI CH M.D. Performed By: #### P T, PTT #### [address] GFR/1.73 sq M.predicted MDRD (S/P/Bld) [Vol rate/Area] 54.198 mL/min/{1.73_m2} Normal [facility] Comment on above: Performed By: #### P T, PTT #### [facility] [address] [place] [id number] [place] Electrolyteson 11-22-2023 Anion gap [Moles/Vol] 11.4 mmol/L Normal 6.0-15.0 [facility] Comment on above: Performed By: #### P T, PTT #### [place] [address] [place] Chloride [Moles/Vol] 103 mmol/L Normal 98-107 [facility] Comment on above: Performed By: #### P T, PTT #### [place] [address] [place] CO2 [Moles/Vol] 28.3 mmol/L Normal 21.0-31.0 [facility] Comment on above: Performed By: #### P T, PTT #### [place] [address] [place] Potassium [Moles/Vol] 4.7 mmol/L Normal 3.5-5.1 [facility] Comment on above: Performed By: #### P T, PTT #### [place] [address] [place] Sodium [Moles/Vol] 138 mmol/L Normal 136-145 [facility] Comment on above: Performed By: #### P T, PTT #### [place] [address] [place] Glucose Poct Glucometerson 0 11-22-2023 Glucose [Mass/Vol] 351 mg/dL Normal [facility] Comment on above: Result Comment: [place] om Glucose Reference Range is dependent on time and content of last meal. Glucose of more than 200 mg/dL in a nonstressed, ambulatory subject supports the diagnosis of Diabetes Mellitus. PERFORMED BY: [place] [address] PATHOLOGIST PATCHER HELPER SUNNI CH M.D. Performed By: #### B MP, CBC #### [place] [address] [place] Glucose [Mass/Vol] 181 mg/dL Normal [facility] Comment on above: Result Comment: [place] Glucose Reference Range is dependent on time and content of last meal. Glucose of more than 200 mg/dL in a nonstressed, ambulatory subject supports the diagnosis of Diabetes Mellitus. PERFORMED BY: [place] [address] PATHOLOGIST PATCHER HELPER SUNNI CH M.D. Performed By: #### P T, PTT #### [address] Glucose [Mass/Vol] 354 mg/dL Normal [facility] Comment on above: Result Comment: [facility] Glucose Reference Range is dependent on time and content of last meal. Glucose of more than 200 mg/dL in a nonstressed, ambulatory subject supports the diagnosis of Diabetes Mellitus. PERFORMED BY: [place] [address] PATHOLOGIST PATCHER HELPER SUNNI CH M.D. Performed By: #### G LULS #### Point of Care testing , INR in Platelet poor plasma by Coagulation assayOrdered By: Justine Jacobo on 11-22-2023 INR Coag (PPP) [Relative time] 1.2 {INR} [facility] Comment on above: INR Therapeutic Rang [...] PT Coag (PPP) [Time] 14.0 s 9.0-12.9 [facility] Comment on above: A hematocrit value g reater than 55% may lead to inaccurate results in coagulation testing. Patients having hematocrit values >55% require a special collection tube for coagulation studies. Please contact the laboratory at [phone] for redraw instructions. A1C with Estimated Average G erickn 11-21-2023 Glucose [Mass/Vol] 88 mg/dL Normal [facility] Comment on above: Result Comment: PERF ORMED BY: [place] [address] PATHOLOGIST PATCHER HELPER SUNNI CH M.D. Performed By: #### P T, PTT #### [address] HbA1c (Bld) [Mass fraction] 4.7 % Normal 4.3-5.6 [facility] Comment on above: Result Comment: Incr eased risk for diabetes: 5.7 - 6.4 diabetes: >6.4 glycemic control for adults with diabetes: <7.0 Performed By: #### P T, PTT #### [address] Automated erythrocytes count in urine sediment (number/area)Ordered By: Winter Norris on 11-21-2023 RBC Auto (Urine sed) [#/Area] 1-2 [HPF] 0-4 [facility] Automated leukocytes count i n urine sediment (number/area)Ordered By: Winter Norris on 11-21-2023 WBC Auto (Urine sed) [#/Area] 0-1 [HPF] 0-4 [facility] Basic Metabolic Panelon 11-07 Anion gap [Moles/Vol] 12.9 mmol/L Normal 6.0-15.0 [facility] Comment on above: Performed By: #### B MP, CBC #### [place] [address] [place] Calcium [Mass/Vol] 8.4 mg/dL Low 8.6-10.3 [facility] Comment on above: Performed By: #### B MP, CBC #### [place] [address] [place] Chloride [Moles/Vol] 106 mmol/L Normal 98-107 [facility] Comment on above: Performed By: #### B MP, CBC #### [place] [address] [place] CO2 [Moles/Vol] 22.3 mmol/L Normal 21.0-31.0 [facility] Comment on above: Performed By: #### B MP, CBC #### [address] Creatinine [Mass/Vol] 0.96 mg/dL Normal 0.60-1.20 [facility] Comment on above: Performed By: #### B MP, CBC #### [place] [address] [place] Creatinine Clr Calc Pharmacy 82.13 Normal [facility] Comment on above: Result Comment: PERF ORMED BY: [place] [address] PATHOLOGIST PATCHER HELPER SUNNI CH M.D. Performed By: #### B MP, CBC #### [place] [address] [place] GFR/1.73 sq M.predicted MDRD (S/P/Bld) [Vol rate/Area] mL/min/{1.73_m2} Normal [facility] Comment on above: Performed By: #### B MP, CBC #### [place] [address] [place] Glucose [Mass/Vol] 260 mg/dL High 70-100 [facility] Comment on above: Result Comment: [place] Glucose Reference Range is dependent on time and content of last meal. Glucose of more than 200 mg/dL in a nonstressed, ambulatory subject supports the diagnosis of Diabetes Mellitus. ADA recommended reference range Performed By: #### B MP, CBC #### [place] [address] [place] Potassium [Moles/Vol] 4.2 mmol/L Normal 3.5-5.1 [facility] Comment on above: Performed By: #### B MP, CBC #### [place] [address] [place] Sodium [Moles/Vol] 137 mmol/L Normal 136-145 [facility] Comment on above: Performed By: #### B MP, CBC #### [place] [address] [place] Urea nitrogen [Mass/Vol] 18 mg/dL Normal 7-25 [facility] Comment on above: Performed By: #### B MP, CBC #### [facility] [address] Bilirubin Test strip Ql (U)O rdered By: Winter Norris on 11-21-2023 Bilirubin Ql (U) Negative Negative [facility] Cholesterol [Mass/volume] in Serum or PlasmaOrdered By: Karen Mays on 11-21-2023 Cholesterol [Mass/Vol] 95 mg/dL 140-200 [facility] Comment on above: Chol less than 200 m g/dl low riskChol 201-239 mg/dl borderline riskChol 240 mg/dl and greater high risk Cholesterol in LDL Calc [Mas s/Vol]Ordered By: Karen Mays on 11-21-2023 Cholesterol in LDL [Mass/Vol] 53 mg/dL 0-100 [facility] Comment on above: LDL ATP III CLASSIFI CATIONLDL less than 100 mg/dL OptimalLDL 100-129 mg/dL Near or above optimalLDL 130-159 mg/dL Borderline highLDL 160-189 mg/dL HighLDL greater than 189 mg/dL Very high Cholesterol in VLDL Calc [Ma ss/Vol]Ordered By: Karen Mays on 11-21-2023 Cholesterol in VLDL [Mass/Vol] 12 mg/dL [facility] Color Auto (U)Ordered By: Juanita oNrris on 11-21-2023 Color (U) Yellow Yellow [facility] Complete Blood Count Auto Di ffon 11-21-2023 Basophils (Bld) [#/Vol] 0.0 10*3/uL Normal 0.0-0.2 [facility] Comment on above: Result Comment: PERF ORMED BY: [place] [address] PATHOLOGIST PATCHER HELPER SUNNI CH M.D. Performed By: #### B MP, CBC #### [facility] [address] [place] [address] [place] Basophils/100 WBC (Bld) 0.3 % Normal . [facility] Comment on above: Performed By: #### B MP, CBC #### [facility] [address] [place] [address] [place] Eosinophils (Bld) [#/Vol] 0.0 10*3/uL Normal 0.0-0.45 [facility] Comment on above: Performed By: #### B MP, CBC #### [address] Eosinophils/100 WBC (Bld) 0.0 % Normal . [facility] Comment on above: Performed By: #### B MP, CBC #### [address] Erythrocyte distribution width (RBC) [Ratio] 15.3 % Normal 11.9-15.3 [facility] Comment on above: Performed By: #### B MP, CBC #### [address] Hematocrit (Bld) [Volume fraction] 37.6 % Normal 34.0-46.4 [facility] Comment on above: Performed By: #### B MP, CBC #### [address] Hemoglobin (Bld) [Mass/Vol] 12.3 g/dL Normal 11.8-15.4 [facility] Comment on above: Performed By: #### B MP, CBC #### [address] Lymphocytes (Bld) [#/Vol] 0.3 10*3/uL Low 1.00-4.8 [facility] Comment on above: Performed By: #### B MP, CBC #### [address] Lymphocytes/100 WBC (Bld) 5.3 % Normal . [facility] Comment on above: Performed By: #### B MP, CBC #### [address] MCH (RBC) [Entitic mass] 29.0 pg Normal 24.7-34.3 [facility] Comment on above: Performed By: #### B MP, CBC #### [address] MCV (RBC) [Entitic vol] 88.3 fL Normal 80-100 [facility] Comment on above: Performed By: #### B MP, CBC #### [address] Mean Corpuscular HGB Conc 32.8 g/dL Normal 32.0-35.0 [facility] Comment on above: Performed By: #### B MP, CBC #### [address] Monocytes (Bld) [#/Vol] 0.1 10*3/uL Normal 0.0-0.8 [facility] Comment on above: Performed By: #### B MP, CBC #### [address] Monocytes/100 WBC (Bld) 2.4 % Normal . [facility] Comment on above: Performed By: #### B MP, CBC #### [address] Neutrophils (Bld) [#/Vol] 4.9 10*3/uL Normal 1.8-7.7 [facility] Comment on above: Performed By: #### B MP, CBC #### [address] Neutrophils/100 WBC (Bld) 92.0 % Normal . [facility] Comment on above: Performed By: #### B MP, CBC #### [address] NRBC% 0.0 /100{WBC} Normal 0-0.5 [facility] Comment on above: Performed By: #### B MP, CBC #### [address] Platelet mean volume (Bld) [Entitic vol] 8.3 fL Normal 6.3-10.7 [facility] Comment on above: Performed By: #### B MP, CBC #### [place] [address] [place] Platelets (Bld) [#/Vol] 158 10*3/uL Normal 150-450 [facility] Comment on above: Performed By: #### B MP, CBC #### [facility] [address] [place] [address] [place] RBC (Bld) [#/Vol] 4.25 10*6/uL Normal 3.60-5.00 [facility] Comment on above: Performed By: #### B MP, CBC #### [facility] [address] [place] [address] [place] WBC (Bld) [#/Vol] 5.4 10*3/uL Normal 3.8-11.6 [facility] Comment on above: Performed By: #### B MP, CBC #### [place] [address] [place] Dipstick and Microscopicon 0 11-21-2023 Appearance (U) Clear Normal Clear [facility] Comment on above: Order Comment: Name Collection Type:: Clean-Voided Midstream Performed By: #### B MP, CBC #### [address] Bacteria,Urine None Seen Normal None Seen [facility] Comment on above: Order Comment: Name Collection Type:: Clean-Voided Midstream Performed By: #### B MP, CBC #### [address] Bilirubin,Urine Negative Normal Negative [facility] Comment on above: Order Comment: Name Collection Type:: Clean-Voided Midstream Performed By: #### B MP, CBC #### [address] Color (U) Yellow Normal Yellow [facility] Comment on above: Order Comment: Name Collection Type:: Clean-Voided Midstream Performed By: #### B MP, CBC #### [place] [address] [place] Glucose Ql (U) >=1000 High Normal [facility] Comment on above: Order Comment: Name Collection Type:: Clean-Voided Midstream Performed By: #### B MP, CBC #### [place] [address] [place] Hyaline Casts,Urine None Seen Normal 0-8 [facility] Comment on above: Order Comment: Name Collection Type:: Clean-Voided Midstream Result Comment: PERF ORMED BY: [place] [address] PATHOLOGIST PATCHER HELPER SUNNI CH M.D. Performed By: #### B MP, CBC #### [address] Ketones Ql (U) Negative Normal Negative [facility] Comment on above: Order Comment: Name Collection Type:: Clean-Voided Midstream Performed By: #### B MP, CBC #### [address] Leukocyte esterase Test strip Ql (U) Negative Normal Negative [facility] Comment on above: Order Comment: Name Collection Type:: Clean-Voided Midstream Performed By: #### B MP, CBC #### [place] [address] [place] Nitrite,Urine Negative Normal Negative [facility] Comment on above: Order Comment: Name Collection Type:: Clean-Voided Midstream Performed By: #### B MP, CBC #### [place] [address] [place] Occult Blood,Urine 1+ High Negative [facility] Comment on above: Order Comment: Name Collection Type:: Clean-Voided Midstream Result Comment: PERF ORMED BY: [place] [address] PATHOLOGIST PATCHER HELPER SUNNI CH M.D. Performed By: #### B MP, CBC #### [place] [address] [place] pH (U) 5.5 [pH] Normal 5.0-9.0 [facility] Comment on above: Order Comment: Name Collection Type:: Clean-Voided Midstream Performed By: #### B MP, CBC #### [place] [address] [place] Protein,Urine Negative Normal Negative [facility] Comment on above: Order Comment: Name Collection Type:: Clean-Voided Midstream Performed By: #### B MP, CBC #### [address] RBC,Urine 1-2 Normal 0-4 [facility] [facility] Group Comment on above: Order Comment: Name Collection Type:: Clean-Voided Midstream Performed By: #### B MP, CBC #### [address] Specificy [place],Urine 1.012 Normal 1.001-1.03 0 [facility] Comment on above: Order Comment: Name Collection Type:: Clean-Voided Midstream Performed By: #### B MP, CBC #### [address] Squamous Epithelial Cell,Urine None Seen Normal 0-2 [facility] Comment on above: Order Comment: Name Collection Type:: Clean-Voided Midstream Performed By: #### B MP, CBC #### [address] Urobilinogen,Urine Normal Normal Normal [facility] Comment on above: Order Comment: Name Collection Type:: Clean-Voided Midstream Performed By: #### B MP, CBC #### [address] WBC LM.HPF (Urine sed) [#/Area] 0 /[HPF] Normal 0-4 [facility] Comment on above: Order Comment: Name Collection Type:: Clean-Voided Midstream Performed By: #### B MP, CBC #### [address] ECG 12 lead ECGon 11-21-2023 ECG 12 lead ECG [facility] [place] [address] Electrocardiograph Report Signed Patient: Melissa Dubose MR#: [id number] 70 : 1960 Acct:[id number] Age/Sex: 63 / F ADM Date: 11/21/23 Loc: Room: [address] [place] [address] Type: ADM IN Attending Dr: Winter Norris [...] No previous ECGs available Confirmed by LAURIE TILLMAN MD ([id number]) on 11/21/2023 12:32:18 PM Referred By: Electronically Signed By:LAURIE TILLMAN MD Transcribed By: MUS Signed By Laurie Tillman MD 0 11/21/23 1232 Normal [facility] ECH echo transthoracicon [facility] echo transthoracic [facility] [place] [address] Echocardiogram Signed Patient: Melissa Dubose MR#: [id number] 70 : 1960 Acct:[id number] Age/Sex: 63 / F ADM Date: 11/21/23 Loc: Room: [address] [place] [address] Type: ADM IN Attending Dr: Winter Norris MD Ordering Provider: Karen Mays APRN Date of Service: 11/21/23 [facility] echo transthoracic: nstemi Copies to: MD Karen Treadwell, PICKER TENDER HELPER Weight: 239 lb Performed By: WILMA Rangel BSA: 2.3 m2 BP: 138/79 mmHg HR: 94 Reason For Study: nstemi History: [place]. HTN. DM. CABG. Former Smoker. Interpretation Summary [...] Performed At: 11/21/23 0902 Signed By: Laurie Tillman MD 11/21/23 1116 Normal [facility] Glucose Poct Glucometerson 0 11-21-2023 Commemt1 Normal The [facility] Physician [facility] Comment on above: Result Comment: Glu2 : WILL NOTIFY DR/RN Performed By: #### P T, PTT #### [address] Commemt2 Cleaned Meter Normal [facility] Physician [facility] Comment on above: Performed By: #### P T, PTT #### [address] Commemt3 Will Repeat Test Normal [facility] Comment on above: Result Comment: PERF ORMED BY: [place] [address] PATHOLOGIST PATCHER HELPER SUNNI CH M.D. Performed By: #### P T, PTT #### [address] Glucose [Mass/Vol] 405 mg/dL Off scale high Th e [facility] Comment on above: Result Comment: [facility] Glucose Reference Range is dependent on time and content of last meal. Glucose of more than 200 mg/dL in a nonstressed, ambulatory subject supports the diagnosis of Diabetes Mellitus. Performed By: #### P T, PTT #### [address] Glucose [Mass/Vol] 345 mg/dL Normal [facility] Physician [facility] Comment on above: Result Comment: [facility] Glucose Reference Range is dependent on time and content of last meal. Glucose of more than 200 mg/dL in a nonstressed, ambulatory subject supports the diagnosis of Diabetes Mellitus. PERFORMED BY: [place] [address] PATHOLOGIST PATCHER HELPER SUNNI CH M.D. Performed By: #### B MP, CBC #### [facility] [address] [place] [address] [facility] Glucose [Mass/Vol] 367 mg/dL Normal [facility] Comment on above: Result Comment: [place] Glucose Reference Range is dependent on time and content of last meal. Glucose of more than 200 mg/dL in a nonstressed, ambulatory subject supports the diagnosis of Diabetes Mellitus. PERFORMED BY: [place] [address] PATHOLOGIST PATCHER HELPER SUNNI CH M.D. Performed By: #### B MP, CBC #### [address] [address] [facility] Glucose [Mass/Vol] 281 mg/dL Normal [facility] Comment on above: Result Comment: [facility] Glucose Reference Range is dependent on time and content of last meal. Glucose of more than 200 mg/dL in a nonstressed, ambulatory subject supports the diagnosis of Diabetes Mellitus. PERFORMED BY: [place] [id number] PATHOLOGIST PATCHER HELPER SUNNI CH M.D. Performed By: #### B MP, CBC #### [place] [id number] [facility] Glucose mean value [Mass/vol ume] in Blood Estimated from glycated hemoglobinOrdered By: Karen Mays on 11-21-2023 Average glucose Estimated from glycated hemoglobin (Bld) [Mass/Vol] 88 mg/dL [facility] Hemoglobin A1c percentageOrd ered By: Karen Mays on 11-21-2023 HbA1c (Bld) [Mass fraction] 4.7 % 4.3-5.6 [facility] Comment on above: Increased risk for d iabetes: 5.7 - 6.4diabetes: >6.4glycemic control for adults with diabetes: <7.0 Ketones Auto test strip (U) [Mass/Vol]Ordered By: Winter Norris on 11-21-2023 Ketones (U) [Mass/Vol] Negative Negative [facility] Laboratory - UrinalysisOrder ed By: Winter Norris on 11-21-2023 Hyaline casts LM Ql (Urine sed) None seen [LPF] 0-8 [facility] Lactate [Moles/volume] in Se rum or PlasmaOrdered By: Karen Mays on 11-21-2023 Lactate [Moles/Vol] 1.5 mmol/L 0.5-2.2 [facility] Lactic Acidon 11-21-2023 Lactate [Moles/Vol] 1.5 mmol/L Normal 0.5-2.2 [facility] Comment on above: Result Comment: PERF ORMED BY: [place] [address] PATHOLOGIST PATCHER HELPER SUNNI CH M.D. Performed By: #### B MP, CBC #### [facility] [address] [place] [address] Lipid Panelon 11-21-2023 Cholesterol [Mass/Vol] 95 mg/dL Low 140-200 [facility] Comment on above: Result Comment: Chol less than 200 mg/dl low risk Chol 201-239 mg/dl borderline risk Chol 240 mg/dl and greater high risk Performed By: #### L IPID, [address] eA #### [facility] [address] [place] [address] Cholesterol in HDL [Mass/Vol] 29 mg/dL Normal 23-92 [facility] Comment on above: Result Comment: HDL CHOL ATP-III CLASSIFICATION Cardiovascular Risk HDL > or equal to 60 mg/dL LOW HDL < 40 mg/dL HIGH Performed By: #### L IPID, [facility] WT eA #### [facility] [address] [place], [place] [id number] [place] Cholesterol.total/Cho lesterol in HDL [Mass ratio] 3.3 {ratio} Normal <5.0 [facility] Comment on above: Result Comment: PERF ORMED BY: [place] [address] PATHOLOGIST PATCHER HELPER SUNNI CH M.D. Performed By: #### L IPID, A1C WT eA #### [facility] [address] [place], [place] [id number] [place] LDL Cholesterol,Calculate d 53 mg/dL Normal 0-100 [facility] Comment on above: Result Comment: LDL ATP III CLASSIFICATION LDL less than 100 mg/dL Optimal LDL 100-129 mg/dL Near or above optimal LDL 130-159 mg/dL Borderline high LDL 160-189 mg/dL High LDL greater than 189 mg/dL Very high Performed By: #### L IPID, A1C WT eA #### [facility] [address] Triglyceride w/Reflex 63 mg/dL Normal 0-149 [facility] Comment on above: Result Comment: TRIG ATP III CLASSIFICATION TRIG less than 150 mg/dL Normal TRIG 150-199 mg/dL Borderline high TRIG 200-500 mg/dL High TRIG greater than 500 mg/dL Very high Standard traceable to the Center for Disease Conrtrol and Prevention (CDC) test method. Performed By: #### L IPID, A1C WTH eA #### [facility] [address] VLDL CHOLESTEROL 12 mg/dL Normal [facility] Comment on above: Performed By: #### L IPID, A1C WT eA #### [facility] [address] Nitrite Test strip Ql (U)Ord ered By: Winter Norris on 11-21-2023 Nitrite Ql (U) Negative Negative [facility] No Panel InformationOrdered By: Winter Norris on 11-21-2023 Bedside Glucose #2 Comment Cleaned meter [facility] Bedside Glucose #3 Comment Will repeat test [facility] Partial Thromboplastin Timeo n 11-21-2023 aPTT Coag (Bld) [Time] 47.2 s High 25.1-36.5 [facility] Comment on above: Order Comment: List the anticoagulant: HEPARIN, UNFRACTIONATED Result Comment: A he matocrit value greater than 55% may lead to inaccurate results in coagulation testing. Patients having hematocrit values >55% require a special collection tube for coagulation studies. Please contact the laboratory at [phone] for redraw instructions. PERFORMED BY: [place] [address] PATHOLOGIST PATCHER HELPER SUNNI CH M.D. Performed By: #### P TT #### [address] [address] [facility] aPTT Coag (Bld) [Time] 152.4 s Off scale high 25.1-36.5 [facility] Comment on above: Order Comment: List the anticoagulant: HEPARIN, UNFRACTIONATED Result Comment: Crit ical value result called at 1511 on 11/21/23 A hematocrit value greater than 55% may lead to inaccurate results in coagulation testing. Patients having hematocrit values >55% require a special collection tube for coagulation studies. Please contact the laboratory at [phone] for redraw instructions. PERFORMED BY: [place] [address] PATHOLOGIST PATCHER HELPER SUNNI CH M.D. Performed By: #### B MP, CBC #### [address] [address] [place] aPTT Coag (Bld) [Time] s Off scale high 25.1-36.5 [facility] Comment on above: Order Comment: DRAW ALL LABS AT 1015 PER CHARLES COLLINS List the anticoagulant: HEPARIN, UNFRACTIONATED Result Comment: Crit ical value result called at 1152 on 11/21/23 A hematocrit value greater than 55% may lead to inaccurate results in coagulation testing. Patients having hematocrit values >55% require a special collection tube for coagulation studies. Please contact the laboratory at [phone] for redraw instructions. PERFORMED BY: [address] [address] PATHOLOGIST PATCHER HELPER SUNNI CH M.D. Performed By: #### B MP, CBC #### [address] [address] [place] aPTT Coag (Bld) [Time] 51.3 s High 25.1-36.5 [facility] Comment on above: Result Comment: A he matocrit value greater than 55% may lead to inaccurate results in coagulation testing. Patients having hematocrit values >55% require a special collection tube for coagulation studies. Please contact the laboratory at [phone] for redraw instructions. PERFORMED BY: [place] [address] PATHOLOGIST PATCHER HELPER SUNNI CH M.D. Performed By: #### P T, PTT #### [facility] [address] [place], [place] [id number] [facility] Protein Auto test strip (U) [Mass/Vol]Ordered By: Winter Norris on 11-21-2023 Protein (U) [Mass/Vol] Negative Negative [facility] Prothrombin Time INRon 11-20 INR Coag (PPP) [Relative time] 1.4 {INR} Normal [facility] Comment on above: Result Comment: [...] Performed By: #### P T, PTT #### [address] [address] [facility] PT Coag (PPP) [Time] 15.6 s High 9.0-12.9 [facility] Comment on above: Result Comment: A he matocrit value greater than 55% may lead to inaccurate results in coagulation testing. Patients having hematocrit values >55% require a special collection tube for coagulation studies. Please contact the laboratory at [phone] for redraw instructions. Performed By: #### P T, PTT #### [facility] [address] [place] [address] [facility] Serum or plasma high density lipoprotein (HDL) cholesterol measurementOrdered By: Karen Mays on 11-21-2023 Cholesterol in HDL [Mass/Vol] 29 mg/dL 23-92 [facility] Comment on above: HDL CHOL ATP-III CLA SSIFICATION Cardiovascular RiskHDL > or equal to 60 mg/dL LOWHDL < 40 mg/dL HIGH Serum or plasma total choles terol/high density lipoprotein (HDL) cholesterol mass ratOrdered By: Karen Mays on 11-21-2023 Cholesterol.total/Cho lesterol in HDL [Mass ratio] 3.3 {ratio} <5.0 [facility] Specific gravity Auto test s trip (U) [Rel density]Ordered By: Winter Norris on 11-21-2023 Specific gravity (U) [Rel density] 1.012 1.001-1.03 0 [facility] Squamous epithelial cells de tection in urine sediment by light microscopyOrdered By: Winter Norris on 11-21-2023 Epithelial cells.squamous LM Ql (Urine sed) None seen [HPF] 0-2 [facility] Triglyceride [Mass/volume] i n Serum or PlasmaOrdered By: Karen Mays on 11-21-2023 Triglyceride [Mass/Vol] 63 mg/dL 0-149 [facility] Comment on above: TRIG ATP III CLASSIF ICATIONTRIG less than 150 mg/dL NormalTRIG 150-199 mg/dL Borderline highTRIG 200-500 mg/dL High TRIG greater than 500 mg/dL Very highStandard traceable to the Center for Disease Conrtrol and Prevention (CDC) test method. Troponin I High Sensitivityo n 11-21-2023 Troponin I High Sensitivity 70.7 pg/mL Off scale high 0.0-15.0 [facility] Comment on above: Order Comment: DRAW ALL LABS AT 1015 PER RN DENNIS Result Comment: Crit ical Result : Called to and read back by: DENNIS JOHNSON at: 11/21/2023 11:29:54 by:SAMINA PERFORMED BY: [place] [address] PATHOLOGIST PATCHER HELPER SUNNI CH M.D. Performed By: #### B MP, CBC #### [address] Troponin I High Sensitivity 75.8 pg/mL Off scale high 0.0-15.0 [facility] Comment on above: Order Comment: 0607 draw Result Comment: Crit ical Result : Called to and read back by: JEREMY ESTRADA at: 11/21/2023 07:30:30 by:[id number] PERFORMED BY: [place] [address] PATHOLOGIST PATCHER HELPER SUNNI CH M.D. Performed By: #### H S TROP #### [facility] [address] [place], [place] [id number] [facility] Troponin I High Sensitivity 85.3 pg/mL Off scale high 0.0-15.0 [facility] Comment on above: Result Comment: Crit ical Result : Called to and read back by: ALBER ONEILL at: 11/21/2023 05:03:43 by:[id number] PERFORMED BY: [place] [address] PATHOLOGIST PATCHER HELPER SUNNI CH M.D. Performed By: #### H S TROP #### [facility] [address] [place], [place] [id number] [facility] Troponin I.cardiac [Mass/vol ume] in Serum or Plasma by Detection limit <= 0.01 ng/Ordered By: Karen Mays on 11-21-2023 Troponin I.cardiac DL <= 0.01 ng/mL [Mass/Vol] 70.7 pg/mL 0.0-15.0 [facility] Comment on above: Critical Result : Ca lled to and read back by: DENNIS JOHNSON at: 11/21/2023 11:29:54 by:SAMINA Urine bacteria detection by automated methodOrdered By: Winter Norris on 11-21-2023 Bacteria Auto Ql (U) None seen None Seen [facility] Urine clarity by refractomet ry automatedOrdered By: Winter Norris on 11-21-2023 Clarity Refractometry automated (U) Clear Clear [facility] Urine glucose measurement by automated test strip (mass/volume)Ordered By: Winter Norris on 11-21-2023 Glucose Auto test strip (U) [Mass/Vol] >=1000 mg/dL Normal [facility] Urine hemoglobin detection b y automated test stripOrdered By: Winter Norris on 11-21-2023 Hemoglobin Auto test strip Ql (U) 1+ Negative [facility] Urine leukocyte esterase det ection by automated test stripOrdered By: Winter Norris on 11-21-2023 Leukocyte esterase Auto test strip Ql (U) Negative Negative [facility] Urobilinogen Auto test strip (U) [Mass/Vol]Ordered By: Winter Norris on 11-21-2023 Urobilinogen (U) [Mass/Vol] Normal mg/dL Normal [facility] XR chest 1V portableon 11-20 XR chest 1V portable [facility] [place] [address] XRay Report Signed Patient: Melissa Dubose MR#: [id number] 70 : 1960 Acct:[id number] Age/Sex: 63 / F ADM Date: 11/21/23 Loc: Room: [address] [place] [address] Type: ADM IN Attending Dr: Winter Norris [...] Orville Oliver M.D.11/21/2023 5:01 PM Dictation Location: [place] [address] Transcribed By: [facility] 11/21/23 1701 Dictated By: Orville Oliver II, MD 11/21/23 1658 Signed By: 11/21/23 1701 Normal [facility] pH Auto test strip (U)Ordere d By: Winter Norris on 11-21-2023 pH (U) 5.5 [pH] 5.0-9.0 [facility] CBC AUTO DIFFon 01-23-2023 BASO # 0.0 103/ul Normal 0.0-0.1 [facility] Comment on above: Performed By: #### I VINCE #### [facility] [address] [address] [address] Chi Keith Basophils/100 WBC (Bld) 0.4 % Normal 0.2-2.0 [facility] Comment on above: Performed By: #### I VINCE #### [facility] [address] [address] [address] Chi Keith EO # 0.1 103/ul Normal 0.0-0.7 [facility] Comment on above: Performed By: #### I VINCE #### [facility] [address] [address] [address] Chi Keith Eosinophils/100 WBC (Bld) 1.9 % Normal 0.9-7.0 [facility] Comment on above: Performed By: #### I VINCE #### [facility] [address] [place] [address] Dr. Chi Keith Erythrocyte distribution width (RBC) [Ratio] 13.9 % Normal 11.0-15.0 [facility] Comment on above: Performed By: #### I VINCE #### [facility] [address] [place] [address] Dr. Chi Keith Hematocrit (Bld) [Volume fraction] 40.5 % Normal 36.0-48.0 [facility] Comment on above: Performed By: #### I VINCE #### [facility] [address] [place] [address] Dr. Chi Keith Hemoglobin (Bld) [Mass/Vol] 12.9 g/dL Normal 12.0-16.0 [facility] Comment on above: Performed By: #### I VINCE #### [facility] [address] [address] [address] Chi Keith IG # 0.02 10e3/ul Normal 0.00-0.03 [facility] Comment on above: Performed By: #### I VINCE #### [facility] [address] [address] [address] Chi Keith IG % 0.3 % Normal 0.0-0.5 [facility] Comment on above: Performed By: #### I VINCE #### [facility] [address] [place] [address] Dr. Chi Keith LYMPH # 1.4 103/ul Normal 1.2-3.8 [facility] Comment on above: Performed By: #### I VINCE #### [facility] [address] [place] [address] Dr. Chi Keith Lymphocytes/100 WBC (Bld) 18.7 % Critically low 20.5-60.0 [facility] Comment on above: Performed By: #### I VINCE #### [facility] [address] [place] [address] Dr. Chi Keith MANUAL DIFF REQ NO Normal [facility] Comment on above: Performed By: #### I VINCE #### [facility] [address] [place] [address] Dr. Chi Keith MCH (RBC) [Entitic mass] 29.7 pg Normal 26.7-34.0 [facility] Comment on above: Performed By: #### I VINCE #### [facility] [address] [place] [address] Dr. Chi Keith MCHC (RBC) [Mass/Vol] 31.9 g/dL Normal 29.9-35.2 [facility] Comment on above: Performed By: #### I VINCE #### [facility] [address] [place] [address] Dr. Chi Keith MCV (RBC) [Entitic vol] 93.1 fL Normal 81.0-99.0 [facility] Comment on above: Performed By: #### I VINCE #### [facility] [address] [place] [address] Dr. Chi Keith MONO # 0.5 103/ul Normal 0.3-0.8 [facility] Comment on above: Performed By: #### I VINCE #### [facility] [address] [place] [address] Dr. Chi Keith Monocytes/100 WBC (Bld) 6.4 % Normal 1.7-12.0 [facility] Comment on above: Performed By: #### I VINCE #### [facility] [address] [place] [address] Dr. Chi Keith NEUT # 5.4 103/ul Normal 1.4-6.5 [facility] Comment on above: Performed By: #### I VINCE #### [facility] [address] [place] [address] Dr. Chi Keith Neutrophils/100 WBC (Bld) 72.3 % Normal 43.0-75.0 [facility] Comment on above: Performed By: #### I VINCE #### [facility] [address] [place] [address] Dr. Chi Keith Platelet mean volume (Bld) [Entitic vol] 10.1 fL Normal 9.5-13.5 [facility] Comment on above: Performed By: #### I VINCE #### [facility] [address] [place] [address] Dr. Chi Keith PLT 271 103/ul Normal 150-450 [facility] Comment on above: Performed By: #### I VINCE #### [facility] [address] [place] [address] Dr. Chi Keith RBC 4.35 106/ul Normal 4.20-5.40 [facility] Comment on above: Performed By: #### I VINCE #### [facility] [address] [place] [address] Dr. Chi Keith WBC 7.5 103/ul Normal 4.0-11.0 [facility] Comment on above: Performed By: #### I VINCE #### [facility] [address] [place] [address] Dr. Chi Keith FREE THYROXINE INDEX T7on FTI 3.94 Normal 1.30-4.50 [facility] Comment on above: Performed By: #### T 7, LIPID, TSH, CMP #### [facility] [address] [place] [address] Dr. Chi Keith T3U 31.0 % Normal 30.0-39.0 [facility] Comment on above: Performed By: #### T 7, LIPID, TSH, CMP #### [facility] [address] [place] [address] [address] Chi Keith T4 [Mass/Vol] 12.70 ug/dL Normal 4.80-13.90 [facility] Comment on above: Performed By: #### T 7, LIPID, TSH, CMP #### [facility] [address] [place] [address] [address] Chi Keith GLYCOHEMOGLOBIN A1Con 2022 ADA RECOMMENDATION SEE BELOW Normal [facility] Comment on above: Result Comment: ADA RECOMMENDED LIMIT 4.0 - 6.0 ADA THERAPEUTIC TARGET < 7.0 ACTION SUGGESTED > 7.0 Performed By: #### A 1C #### [facility] [address] [place] [address] Dr. Chi Keith Glucose [Mass/Vol] 120 mg/dL Normal [facility] Comment on above: Performed By: #### A 1C #### [facility] [address] [place] [address] Dr. Chi Keith HbA1c (Bld) [Mass fraction] 5.8 % Normal 4.5-6.2 [facility] Comment on above: Performed By: #### A 1C #### [facility] [address] [place] [address] Dr. Chi Keith IRONon 01-23-2023 Iron [Mass/Vol] 109.0 ug/dL Normal 50.0-170.0 [facility] Comment on above: Performed By: #### I VINCE #### [facility] [address] [place] [address] Dr. Chi Keith LIPID PROFILEon 01-23-2023 CHOL-HDL RATIO NORM SEE BELOW Normal [facility] Comment on above: Result Comment: 3.3 - 4.4 LOW RISK 4.4 - 7.1 AVERAGE RISK 7.1 - 11.0 MODERATE RISK >11.0 HIGH RISK Performed By: #### T 7, LIPID, TSH, CMP #### [facility] [address] [place] [address] Dr. Chi Keith Cholesterol [Mass/Vol] 209 mg/dL Critically high <=200 [facility] Comment on above: Performed By: #### T 7, LIPID, TSH, CMP #### [facility] [address] [address] [address] Chi Keith Cholesterol in HDL [Mass/Vol] 41 mg/dL Normal 40-60 [facility] Comment on above: Performed By: #### T 7, LIPID, TSH, CMP #### [facility] [address] [address] [address] Chi Keith Cholesterol in LDL [Mass/Vol] 135.0 mg/dL Normal [facility] Comment on above: Performed By: #### T 7, LIPID, TSH, CMP #### [facility] [address] [address] [address] Chi Keith Cholesterol.total/Cho lesterol in HDL [Mass ratio] 5.1 {ratio} Normal [facility] Comment on above: Performed By: #### T 7, LIPID, TSH, CMP #### [facility] [address] [address] [address] Chi Keith HDL NORMAL > or = 60 mg/dl - LO W CARDIOVASCULAR RISK <40 mg/dl - HIGH CARDIOVASCULAR RISK Normal [facility] Comment on above: Performed By: #### T 7, LIPID, TSH, CMP #### [facility] [address] [address] [address] Chi Keith LDL CALC NORMAL SEE BELOW Normal [facility] Comment on above: Result Comment: <100 mg/dl OPTIMAL 100 - 129 mg/dl NEAR OR ABOVE OPTIMAL 130 - 159 mg/dl BORDERLINE HIGH 160 - 189 mg/dl HIGH >190 mg/dl VERY HIGH Performed By: #### T 7, LIPID, TSH, CMP #### [facility] [address] [address] [address] Chi Keith Triglyceride [Mass/Vol] 165 mg/dL Critically high <=150 [facility] Comment on above: Performed By: #### T 7, LIPID, TSH, CMP #### [facility] [address] [place] [address] Dr. Chi Keith VLDL CALC 33.0 mg/dL Normal [facility] Comment on above: Performed By: #### T 7, LIPID, TSH, CMP #### [facility] [address] [address] [address] Chi Keith PROF 14(COMP METB)on 023 Albumin [Mass/Vol] 3.1 g/dL Critically low 3.4-5.0 [facility] Comment on above: Performed By: #### T 7, LIPID, TSH, CMP #### [facility] [address] [address] [address] Chi Keith Albumin/Globulin [Mass ratio] 0.8 {ratio} Normal [facility] Comment on above: Performed By: #### T 7, LIPID, TSH, CMP #### [facility] [address] [address] [address] Chi Keith ALP [Catalytic activity/Vol] 86 U/L Normal 46-116 [facility] Comment on above: Performed By: #### T 7, LIPID, TSH, CMP #### [facility] [address] [address] [address] Chi Keith ALT [Catalytic activity/Vol] 35 U/L Normal 14-59 [facility] Comment on above: Performed By: #### T 7, LIPID, TSH, CMP #### [facility] [address] [address] [address] Chi Keith Anion gap [Moles/Vol] 13.9 mmol/L Normal [facility] Comment on above: Performed By: #### T 7, LIPID, TSH, CMP #### [facility] [address] [address] [address] Chi Keith AST [Catalytic activity/Vol] 29 U/L Normal 15-37 [facility] Comment on above: Performed By: #### T 7, LIPID, TSH, CMP #### [facility] [address] [address] [address] Chi Keith Bilirubin [Mass/Vol] 0.6 mg/dL Normal 0.2-1.0 [facility] Comment on above: Performed By: #### T 7, LIPID, TSH, CMP #### [facility] [address] [address] [address] Chi Keith Calcium [Mass/Vol] 9.7 mg/dL Normal 8.5-10.1 [facility] Comment on above: Performed By: #### T 7, LIPID, TSH, CMP #### [facility] [address] [place] [address] Dr. Chi Keith Chloride [Moles/Vol] 106 mmol/L Normal 98-107 [facility] Comment on above: Performed By: #### T 7, LIPID, TSH, CMP #### [facility] [address] [place] [address] Dr. Chi Keith CO2 [Moles/Vol] 28.1 mmol/L Normal 21.0-32.0 [facility] Comment on above: Performed By: #### T 7, LIPID, TSH, CMP #### [facility] [address] [place] [address] Dr. Chi Keith Creatinine [Mass/Vol] 1.33 mg/dL Critically high 0.55-1.02 [facility] Comment on above: Performed By: #### T 7, LIPID, TSH, CMP #### [facility] [address] [place] [address] Dr. Chi Keith EGFR-AF MARSHALLESE 49 mL/min/1.73m2 Critically low >=60 [facility] Comment on above: Performed By: #### T 7, LIPID, TSH, CMP #### [facility] [address] [place] [address] Dr. Chi Keith EGFR-NON AF MARSHALLESE 41 mL/min/1.73m2 Critically low >=60 [facility] Comment on above: Performed By: #### T 7, LIPID, TSH, CMP #### [facility] [address] [place] [address] Dr. Chi Keith Globulin (S) [Mass/Vol] 3.8 g/dL Normal [facility] Comment on above: Performed By: #### T 7, LIPID, TSH, CMP #### [facility] [address] [place] [address] Dr. Chi Keith Glucose [Mass/Vol] 116 mg/dL Critically high 74-106 [facility] Comment on above: Performed By: #### T 7, LIPID, TSH, CMP #### [facility] [address] [place] [address] Dr. Chi Keith Potassium [Moles/Vol] 4.0 mmol/L Normal 3.5-5.1 [facility] Comment on above: Performed By: #### T 7, LIPID, TSH, CMP #### [facility] [address] [place] [address] Dr. Chi Keith Protein [Mass/Vol] 6.9 g/dL Normal 6.4-8.2 [facility] Comment on above: Performed By: #### T 7, LIPID, TSH, CMP #### [facility] [address] [place] [address] Dr. Chi Keith Sodium [Moles/Vol] 144 mmol/L Normal 136-145 [facility] Comment on above: Performed By: #### T 7, LIPID, TSH, CMP #### [facility] [address] [place] [address] Dr. Chi Keith Urea nitrogen [Mass/Vol] 20.0 mg/dL Critically high 7.0-18.0 [facility] Comment on above: Performed By: #### T 7, LIPID, TSH, CMP #### [facility] [address] [place] [address] Dr. Chi Keith Urea nitrogen/Creatinine [Mass ratio] 15.0 mg/mg Normal [facility] Comment on above: Performed By: #### T 7, LIPID, TSH, CMP #### [facility] [address] [place] [address] Dr. Chi Keith TSHon 01-23-2023 TSH 0.995 uIU/mL Normal 0.358-3.74 0 [facility] Comment on above: Performed By: #### T 7, LIPID, TSH, CMP #### [facility] [address] [place] [address] Dr. Chi Keith Covid-19 PCR ([facility])on SARS-CoV-2 (COVID-19) RNA ALEXANDREA+probe Ql (Unsp spec) Detected Critically abnormal NOT DETECTED [facility] Comment on above: Result Comment: This test is not yet approved or cleared by the [place] FDA. When there are no FDA-approved or cleared tests available, and other criteria are met, FDA can make tests available under an emergency access mechanism called an Emergency Use Authorization (EUA). The EUA for this test is supported by the [place] of Health and Human Service's declaration that [...] used). Performed By: #### I VINCE #### [facility] [address] [place] [address] Dr. Chi Keith INFLUENZA A AND B AGon INFLUENZA A AG Negative Normal NEGATIVE SEE COMMENT [facility] Comment on above: Performed By: #### I VINCE #### [facility] [address] [place] [address] Dr. Chi Keith INFLUENZA B AG Negative Normal NEGATIVE SEE COMMENT [facility] Comment on above: Performed By: #### I VINCE #### [facility] [address] [place] [address] Dr. Chi Keith INTERNAL CONTROLS Within Normal Limits Normal Wi thin Normal Limits [facility] Comment on above: Performed By: #### I VINCE #### [facility] [address] [place] [address] Dr. Chi Keith CARDIAC [place] ADMITon 022 CK [Catalytic activity/Vol] 34 U/L Normal 26-192 [facility] Comment on above: Performed By: #### I VINCE #### [facility] [address] [place] [address] Dr. Cih Keith CK.MB [Mass/Vol] 0.71 ng/mL Normal <=3.60 [facility] Comment on above: Performed By: #### I VINCE #### [facility] [address] [place] [address] Dr. Chi Keith HSTROP 11.6 pg/mL Normal 4.0-51.3 [facility] Comment on above: Result Comment: CUT- OFF POINTS HAVE BEEN ESTABLISHED BASED ON THE FOURTH UNIVERSAL DEFINITIONS OF MYOCARDIAL INFARCTION. THE UPPER REFERENCE LIMIT (URL) OF TROPONIN, DEFINED THE 99TH PERCENTILE OF cTnI DISTRIBUTION IN A REFERENCE POPULATION, HAS BEEN CONFIRMED THE DECISION THRESHOLD FOR LA DIAGNOSIS. Performed By: #### I VINCE #### [facility] [address] [place] [address] Dr. Chi Keith FAUSTO 57 ng/mL Normal 9-82 [facility] Comment on above: Performed By: #### I VINCE #### [facility] [address] [place] [address] Dr. Chi Keith CBC AUTO DIFFon 04-09-2022 BASO # 0.0 103/ul Normal 0.0-0.1 [facility] Comment on above: Performed By: #### I VINCE #### [facility] [address] [place] [address] Dr. Chi Keith Basophils/100 WBC (Bld) 0.4 % Normal 0.2-2.0 [facility] Comment on above: Performed By: #### I VINCE #### [facility] [address] [place] [address] Dr. Chi Keith EO # 0.1 103/ul Normal 0.0-0.7 [facility] Comment on above: Performed By: #### I VINCE #### [facility] [address] [place] [address] Dr. Chi Keith Eosinophils/100 WBC (Bld) 0.7 % Critically low 0.9-7.0 [facility] Comment on above: Performed By: #### I VINCE #### [facility] [address] [place] [address] Dr. Chi Keith Erythrocyte distribution width (RBC) [Ratio] 14.5 % Normal 11.0-15.0 [facility] Comment on above: Performed By: #### I VINCE #### [facility] [address] [place] [address] Dr. Chi Keith Hematocrit (Bld) [Volume fraction] 42.1 % Normal 36.0-48.0 [facility] Comment on above: Performed By: #### I VINCE #### [facility] [address] [place] [address] Dr. Chi Keith Hemoglobin (Bld) [Mass/Vol] 13.5 g/dL Normal 12.0-16.0 [facility] Comment on above: Performed By: #### I VINCE #### [facility] [address] [place] [address] Dr. Chi Keith IG # 0.03 10e3/ul Normal 0.00-0.03 [facility] Comment on above: Performed By: #### I VINCE #### [facility] [address] [place] [address] Dr. Chi Keith IG % 0.3 % Normal 0.0-0.5 [facility] Comment on above: Performed By: #### I VINCE #### [facility] [address] [place] [address] Dr. Chi Keith LYMPH # 1.8 103/ul Normal 1.2-3.8 [facility] Comment on above: Performed By: #### I VINCE #### [facility] [address] [place] [address] Dr. Chi Keith Lymphocytes/100 WBC (Bld) 18.3 % Critically low 20.5-60.0 [facility] Comment on above: Performed By: #### I VINCE #### [facility] [address] [place] [address] Dr. Chi Keith MANUAL DIFF REQ NO Normal [facility] Comment on above: Performed By: #### I VINCE #### [facility] [address] [place] [address] Dr. Chi Keith MCH (RBC) [Entitic mass] 30.5 pg Normal 26.7-34.0 [facility] Comment on above: Performed By: #### I VINCE #### [facility] [address] [place] [address] Dr. Chi Keith MCHC (RBC) [Mass/Vol] 32.1 g/dL Normal 29.9-35.2 [facility] Comment on above: Performed By: #### I VINCE #### [facility] [address] [address] [address] Chi Keith MCV (RBC) [Entitic vol] 95.2 fL Normal 81.0-99.0 [facility] Comment on above: Performed By: #### I VINCE #### [facility] [address] [address] [address] Chi Keith MONO # 0.6 103/ul Normal 0.3-0.8 [facility] Comment on above: Performed By: #### I VINCE #### [facility] [address] [place] [address] Dr. Chi Keith Monocytes/100 WBC (Bld) 6.3 % Normal 1.7-12.0 [facility] Comment on above: Performed By: #### I VINCE #### [facility] [address] [place] [address] Dr. Chi Keith NEUT # 7.5 103/ul Critically high 1.4-6.5 [facility] Comment on above: Performed By: #### I VINCE #### [facility] [address] [place] [address] Dr. Chi Keith Neutrophils/100 WBC (Bld) 74.0 % Normal 43.0-75.0 [facility] Comment on above: Performed By: #### I VINCE #### [facility] [address] [place] [address] Dr. Chi Keith Platelet mean volume (Bld) [Entitic vol] 9.3 fL Critically low 9.5-13.5 [facility] Comment on above: Performed By: #### I VINCE #### [facility] [address] [place] [address] Dr. Chi Keith PLT 316 103/ul Normal 150-450 [facility] Comment on above: Performed By: #### I VINCE #### [facility] [address] [place] [address] Dr. Chi Keith RBC 4.42 106/ul Normal 4.20-5.40 [facility] Comment on above: Performed By: #### I VINCE #### [facility] [address] [place] [address] Dr. Chi Keith WBC 10.1 103/ul Normal 4.0-11.0 [facility] Comment on above: Performed By: #### I VINCE #### [facility] [address] [address] [address] FACIAL BONES WO CONon CT [...] SUNIL THOMPSON Date: 2022-04-09 15:58 Normal [facility] CT HEAD WO CONon 04-09-2022 [...] SUNIL THOMPSON Date: 2022-04-09 15:51 Normal [facility] ER URINE PROFILEon 2 Bilirubin Ql (U) MODERATE Abnormal NEGATIVE [facility] Comment on above: Performed By: #### I VINCE #### [facility] [address] [place] [address] Dr. Chi Keith Clarity (U) CLEAR Normal CLEAR [facility] Comment on above: Performed By: #### I VINCE #### [facility] [address] [place] [address] Dr. Chi Keith Color (U) DK. YELLOW Normal YELLOW [facility] Comment on above: Performed By: #### I VINCE #### [facility] [address] [place] [address] Dr. Chi Keith ERUAHD A micrscopic examina tion will be performed if indicated. Normal [facility] Comment on above: Performed By: #### I VINCE #### [facility] [address] [place] [address] Dr. Chi Ketih Glucose Ql (U) Negative Normal NEGATIVE [facility] Comment on above: Performed By: #### I VINCE #### [facility] [address] [place] [address] Dr. Chi Keith Hemoglobin Ql (U) TRACE-INTACT Abnormal NEGATIVE [facility] Comment on above: Performed By: #### I VINCE #### [facility] [address] [place] [address] Dr. Chi Keith Ketones Ql (U) 15 mg/dl Abnormal NEGATIVE [facility] Comment on above: Performed By: #### I VINCE #### [facility] [address] [place] [address] Dr. Chi Keith LEUKOCYTES Negative Normal NEGATIVE [facility] Comment on above: Performed By: #### I VINCE #### [facility] [address] [place] [address] Dr. Chi Keith Nitrite Ql (U) Negative Normal NEGATIVE [facility] Comment on above: Performed By: #### I VINCE #### [facility] [address] [place] [address] Dr. Chi Keith pH (U) 5.5 [pH] Normal 5-9 [facility] Comment on above: Performed By: #### I VINCE #### [facility] [address] [place] [address] Dr. Chi Keith Protein (U) [Mass/Vol] 30 mg/dL Abnormal NEGATIVE/ TRACE [facility] Comment on above: Performed By: #### I VICNE #### [facility] [address] [place] [address] Dr. Chi Keith SPEC GRAVITY >=1.030 Abnormal 1.005-<=1. 025 [facility] Comment on above: Performed By: #### I VINCE #### [facility] [address] [place] [address] Dr. Chi Keith UR MICRO IND INDICATED Normal [facility] Comment on above: Performed By: #### I VINCE #### [facility] [address] [place] [address] Dr. Chi Keith Urobilinogen Qn (U) 1.0 {Mani'U}/dL Normal 0.2 - 1. 0 [facility] Comment on above: Performed By: #### I VINCE #### [facility] [address] [place] [address] Dr. Chi Keith PROF 14(COMP METB)on 022 Albumin [Mass/Vol] 3.3 g/dL Critically low 3.4-5.0 [facility] Comment on above: Performed By: #### C THERESE TORRES, TSH #### [facility] [address] [place] [address] Dr. Chi Keith Albumin/Globulin [Mass ratio] 0.9 {ratio} Normal [facility] Comment on above: Performed By: #### C THERESE TORRES, TSH #### [facility] [address] [place] [address] Dr. Chi Keith ALP [Catalytic activity/Vol] 87 U/L Normal 46-116 [facility] Comment on above: Performed By: #### C MELISSA CMP, TSH #### [facility] [address] [address] [address] Chi Keiht ALT [Catalytic activity/Vol] 34 U/L Normal 14-59 [facility] Comment on above: Performed By: #### C MADVictor Hugo CMP, TSH #### [facility] [address] [address] [address] Chi Keiht Anion gap [Moles/Vol] 12.2 mmol/L Normal [facility] Comment on above: Performed By: #### C MADVictor Hugo CMP, TSH #### [facility] [address] [place] [address] Dr. Chi Keith AST [Catalytic activity/Vol] 16 U/L Normal 15-37 [facility] Comment on above: Performed By: #### C MELISSA CMP, TSH #### [facility] [address] [place] [address] Dr. Chi Keith Bilirubin [Mass/Vol] 0.6 mg/dL Normal 0.2-1.0 [facility] Comment on above: Performed By: #### C MELISSA CMP, TSH #### [facility] [address] [place] [address] Dr. Chi Keith Calcium [Mass/Vol] 9.8 mg/dL Normal 8.5-10.1 [facility] Comment on above: Performed By: #### C MADVictor Hugo CMP, TSH #### [facility] [address] [place] [address] Dr. Chi Keith Chloride [Moles/Vol] 106 mmol/L Normal 98-107 [facility] Comment on above: Performed By: #### C MADVictor Hugo CMP, TSH #### [facility] [address] [place] [address] Dr. Chi Keith CO2 [Moles/Vol] 27.9 mmol/L Normal 21.0-32.0 [facility] Comment on above: Performed By: #### C MADVictor Hugo, CMP, TSH #### [facility] [address] [address] [address] Chi Keith Creatinine [Mass/Vol] 1.13 mg/dL Critically high 0.55-1.02 [facility] Comment on above: Performed By: #### C MADM, CMP, TSH #### [facility] [address] [address] [address] Chi Keith EGFR-AF MARSHALLESE =60 Normal >=60 [facility] Comment on above: Performed By: #### C MADM, CMP, TSH #### [facility] [address] [address] [address] Chi Keith EGFR-NON AF MARSHALLESE 49 mL/min/1.73m2 Critically low >=60 [facility] Comment on above: Performed By: #### C MADM, CMP, TSH #### [facility] [address] [address] [address] Chi Keith Globulin (S) [Mass/Vol] 3.8 g/dL Normal [facility] Comment on above: Performed By: #### C MADM, CMP, TSH #### [facility] [address] [address] [address] Chi Keith Glucose [Mass/Vol] 115 mg/dL Critically high 74-106 [facility] Comment on above: Performed By: #### C MADM, CMP, TSH #### [facility] [address] [address] [address] Chi Keith Potassium [Moles/Vol] 4.1 mmol/L Normal 3.5-5.1 [facility] Comment on above: Performed By: #### C MADM, CMP, TSH #### [facility] [address] [address] [address] Chi Keith Protein [Mass/Vol] 7.1 g/dL Normal 6.4-8.2 [facility] Comment on above: Performed By: #### C MADM, CMP, TSH #### [facility] [address] [address] [address] Chi Keith Sodium [Moles/Vol] 142 mmol/L Normal 136-145 [facility] Comment on above: Performed By: #### C MADM, CMP, TSH #### [facility] [address] [place] [address] Dr. Chi Keith Urea nitrogen [Mass/Vol] 21.0 mg/dL Critically high 7.0-18.0 [facility] Comment on above: Performed By: #### C WINGM CMP, TSH #### [facility] [address] [place] [address] Dr. Chi Keith Urea nitrogen/Creatinine [Mass ratio] 18.6 mg/mg Normal [facility] Comment on above: Performed By: #### C THERESE TORRES, TSH #### [facility] [address] [place] [address] Dr. Chi Keith PROTIMEon 04-09-2022 INR Coag (PPP) [Relative time] 0.97 {INR} Normal [facility] Comment on above: Performed By: #### I VINCE #### [facility] [address] [place] [address] Dr. Chi Keith INR GUIDELINES SEE BELOW Normal [facility] Comment on above: Result Comment: LISA RED INR: 2.0 - 3.0 CONDITIONS NOT LISTED BELOW 2.5 - 3.5 FOR PROSTHETIC HEART VALVE REPLACEMENT 2.5 - 3.5 RECURRENT THROMBOSIS Performed By: #### I VINCE #### [facility] [address] [place] [address] Dr. Chi Keith PT Coag (PPP) [Time] 10.5 s Normal 9.0-11.6 [facility] Comment on above: Performed By: #### I VINCE #### [facility] [address] [place] [address] Dr. Chi Keith PTTon 04-09-2022 aPTT Coag (Bld) [Time] 23.1 s Normal 22.3-36.2 [facility] Comment on above: Performed By: #### I VINCE #### [facility] [address] [place] [address] Dr. Chi Keith TSHon 04-09-2022 TSH 0.511 uIU/mL Normal 0.358-3.74 0 [facility] Comment on above: Performed By: #### C MADM, CMP, TSH #### [facility] [address] [place] [address] Dr. Chi Keith URINE MICROSCOPIC ONLYon BACTERIA TRACE Abnormal NONE SEEN [facility] Comment on above: Performed By: #### I VINCE #### [facility] [address] [place] [address] Dr. Chi Keith Bacteria identified Cx Nom (U) NOT INDICATED Normal [facility] Comment on above: Performed By: #### I VINCE #### [facility] [address] [place] [address] Dr. Chi Keith CAST SEEN Abnormal NONE SEEN [facility] Comment on above: Performed By: #### I VINCE #### [facility] [address] [place] [address] Dr. Chi Keith Crystals LM Nom (Urine sed) NONE SEEN Normal NONE SEEN [facility] Comment on above: Performed By: #### I VINCE #### [facility] [address] [place] [address] Dr. Chi Keith Epithelial cells LM Ql (Urine sed) FEW Abnormal NONE SEEN /RARE [facility] Comment on above: Performed By: #### I VINCE #### [facility] [facility] [address] [place] [address] Dr. Chi Keith HYALINE CAST RARE Normal [facility] Comment on above: Performed By: #### I VINCE #### [facility] [address] [place] [address] Dr. Chi Keith MUCOUS SMALL Abnormal NONE SEEN [facility] Comment on above: Performed By: #### I VINCE #### [facility] [address] [place] [address] Dr. Chi Keith RBC 2-5 Abnormal 0-2 [facility] Comment on above: Performed By: #### I VINCE #### [facility] [address] [place] [address] Dr. Chi Keith WBC 0-2 Abnormal NONE SEEN [facility] Comment on above: Performed By: #### I VINCE #### [facility] [address] [place], [place] [address] Dr. Chi Keith Cardiovascular Lab Reporton 05-11-2017 Cardiovascular Lab Report [facility] Patient Name: Melissa Dubose [facility]: [id number] Physician: Justine Parks M.D.Department of Service Date: 05/10/2017Medicine Birthdate: [birth year]Division of Room #: [facility] CardiovascularServicesUnWilson N[facility] Centerer[address] [place], [place] [address]Fzejr Fax Cardiovascular Laboratory ReportINDICATION:Melissa Dubose is a [...] She signedinformed consent. She was brought to [facility] in a fasting state. Theright groin area was prepped and draped in usual fashion. Usingmicropuncture technique, the right common femoral artery was accessed. Theinner cannula was advanced. Limited right femoral angiography wasperformed followed by upsizing to a 6-Haitian x 11 cm sheath. Bilateralselective renal angiography was then performed using 6-Haitian JL4 and KS7wlptfmonql catheters. The 6-Haitian JR4 diagnostic catheter was used toselectively engage the saphenous venous graft to the OM and the radialgraft to the PDA. Angiography was performed. Catheter was exchanged to a6-Haitian CYNTHIA catheter, which was used to selectively [...] follow up in Cardiology Clinic.Electronically Signed by:Justine Parks M.D. 06/01/2017 08:16 A Justine Parks M.D.Date Dict: 05/10/2017/01:01 P/Justine Parks M.D.Date Trans: 05/11/2017 09:53 A/Charleen_JN:[id number]: Madison Magana M.D. [address] [facility] [id number] [place] [facility] Vital Signs Date Time Vital Sign Value Performing Clinician Facility 09-24-2024 16:30-0500 Blood Pressure Location Benjy JOHNSON [place] 09-24-2024 16:30-0500 Body temperature 97.7 [degF] Benjy JOHNSON [place] 09-24-2024 16:30-0500 Diastolic blood pressure 70 mm[Hg] Benjy JOHNSON [place] 09-24-2024 16:30-0500 Heart rate 78 /min Benjy JOHNSON [place] 09-24-2024 16:30-0500 Mean blood pressure 91 mm[Hg] Benjy JOHNSON [place] 09-24-2024 16:30-0500 SaO2% (BldA) [Mass fraction] 95 % Benjy JOHNSON [place] 09-24-2024 16:30-0500 Systolic blood pressure 134 mm[Hg] Benjy JOHNSON [place] 09-24-2024 15:43-0500 Heart rate 77 /min Benjy JOHNSON [place] 09-24-2024 15:43-0500 SaO2% (BldA) [Mass fraction] 93 % Benyj JOHNSON [place] 09-24-2024 15:43-0500 Diastolic blood pressure 69 mm[Hg] Benjy JOHNSON [place] 09-24-2024 15:43-0500 Mean blood pressure 85 mm[Hg] Benjy JOHNSON [place] 09-24-2024 15:43-0500 Systolic blood pressure 115 mm[Hg] Benjy JOHNSON [place] 09-24-2024 15:43-0500 Blood Pressure Location Benjy JOHNSON [place] 09-24-2024 15:43-0500 Body temperature 97.52 [degF] Benjy JOHNSON [place] 09-24-2024 15:30-0500 Blood Pressure Location Benjy JOHNSON [place] 09-24-2024 15:30-0500 Body temperature 97.34 [degF] Benjy JOHNSON [place] 09-24-2024 15:30-0500 Diastolic blood pressure 73 mm[Hg] Benjy JOHNSON [place] 09-24-2024 15:30-0500 Heart rate 69 /min Benjy JOHNSON [place] 09-24-2024 15:30-0500 Mean blood pressure 89 mm[Hg] Benjy JOHNSON [place] 09-24-2024 15:30-0500 Respiratory rate 17 /min Benjy JOHNSON [place] 09-24-2024 15:30-0500 SaO2% (BldA) [Mass fraction] 92 % Benjy JOHNSON [place] 09-24-2024 15:30-0500 Systolic blood pressure 122 mm[Hg] Benjy JOHNSON [place] 09-24-2024 15:15-0500 Mean blood pressure 95 mm[Hg] Benjy JOHNSON [place] 09-24-2024 15:15-0500 Respiratory rate 16 /min Benjy JOHNSON [place] 09-24-2024 15:10-0500 Respiratory rate 17 /min Benjy JOHNSON [place] 09-24-2024 11:45-0500 Mean blood pressure 87 mm[Hg] Benjy JOHNSON [place] 09-24-2024 11:43-0500 Respiratory rate 20 /min Benjy JOHNSON [place] 09-24-2024 11:43-0500 Body temperature 97.7 [degF] Benjy JOHNSON [place] 09-24-2024 11:43-0500 Mean blood pressure 91 mm[Hg] Benjy JOHNSON [place] 09-17-2024 13:33-0500 Heart rate 61 /min Benjy JOHNSON [place] 09-17-2024 13:33-0500 SaO2% (BldA) [Mass fraction] 97 % Benjy JOHNSON [place] 09-17-2024 13:33-0500 Diastolic blood pressure 73 mm[Hg] Benjy JOHNSON [place] 09-17-2024 13:33-0500 Mean blood pressure 88 mm[Hg] Benjy JOHNSON [place] 09-17-2024 13:33-0500 Systolic blood pressure 118 mm[Hg] Benjy JOHNSON [place] 09-17-2024 13:32-0500 Heart rate 63 /min Benjy JOHNSON [place] 09-17-2024 13:32-0500 SaO2% (BldA) [Mass fraction] 96 % Benjy JOHNSON [place] 09-17-2024 13:32-0500 Respiratory rate 18 /min Benjy JOHNSON [place] 09-17-2024 13:32-0500 Diastolic blood pressure 84 mm[Hg] Benjy JOHNSON [place] 09-17-2024 13:32-0500 Mean blood pressure 99 mm[Hg] Benjy COOK [place] 09-17-2024 13:32-0500 Systolic blood pressure 129 mm[Hg] Benjy COOK [place] 08-20-2024 15:06-0500 Diastolic blood pressure 68 mm[Hg] Benjy COOK [facility] 08-20-2024 15:06-0500 Heart rate 80 /min Benjy COOK [facility] 08-20-2024 15:06-0500 Respiratory rate 16 /min Benjy COOK [facility] 08-20-2024 15:06-0500 Systolic blood pressure 104 mm[Hg] Benjy COOK [facility] 06-02-2024 13:56-0400 Diastolic blood pressure 78 mm[Hg] Ashley Orzech [facility] 06-02-2024 13:56-0400 Heart rate 56 /min Ashley Orzech [facility] 06-02-2024 13:56-0400 Respiratory rate 16 /min Ashley Orzech [facility] 06-02-2024 13:56-0400 Systolic blood pressure 126 mm[Hg] Ashley Orzech [facility] 11-25-2023 11:01-0400 Body temperature 97.7 [degF] MD Madison Magana Work Phone: [facility] 11-25-2023 11:01-0400 Diastolic blood pressure 65 mm[Hg] MD Madison Magana Work Phone: [facility] 11-25-2023 11:01-0400 Heart rate 90 /min MD Madison Magana Work Phone: [facility] 11-25-2023 11:01-0400 Respiratory rate 16 /min MD Madison Magana Work Phone: [facility] 11-25-2023 11:01-0400 SaO2% (BldA) [Mass fraction] 97 % MD Madison Magana Work Phone: [facility] 11-25-2023 11:01-0400 Systolic blood pressure 108 mm[Hg] MD Madison Magana Work Phone: [facility] 11-25-2023 06:00-0400 Body weight 103 kg MD Madison Magana Work Phone: [facility] 11-24-2023 20:00-0400 Inhaled oxygen flow rate 2 L/min MD Madison Magana Work Phone: [facility] 11-21-2023 14:58-0400 Body height 177.8 cm MD Madison Magana Work Phone: [facility] Encounters Encounter Date Encounter Type Care Provider Facility Start: 02-09-2025 End: 02-10-2025 ambulatory [facility] Start: 12-04-2024 End: 12-04-2024 ambulatory [facility] Start: 09-24-2024 End: 09-24-2024 Admission to same day surgery center Benjy JOHNSON [place] Start: 09-24-2024 End: 09-24-2024 ambulatory Benjy JOHNSON Facility:[facility] Start: 09-17-2024 End: 09-17-2024 ambulatory Benjy JOHNSON Facility:[facility] Start: 09-17-2024 End: 09-17-2024 Patient encounter procedure Benjy JOHNSON [place] Start: 08-24-2024 End: 08-24-2024 ambulatory [facility] Start: 08-24-2024 End: 08-24-2024 Encounter for preprocedural cardiovascular examination [facility] Start: 08-20-2024 End: 08-20-2024 Lab Drop off Benjy Di JOHNSON [place] Start: 08-20-2024 End: 08-20-2024 ambulatory Benjy JOHNSON Facility:[facility] Start: 08-20-2024 End: 08-20-2024 Patient encounter procedure Benjy JOHNSON [facility] [place] Start: 07-29-2024 End: 07-29-2024 ambulatory [facility] Start: 06-02-2024 End: 06-02-2024 ambulatory Ashley X Orzech Facility:[facility] Start: 06-02-2024 End: 06-02-2024 Lab Drop off Ashley X Orzech [place] Start: 06-02-2024 End: 06-02-2024 ambulatory Ashley X Orzech Facility:[facility] [place] Start: 06-02-2024 End: 06-02-2024 Patient encounter procedure Ashley X Orzech [facility] [place] Start: 05-01-2024 End: 05-01-2024 ambulatory [facility] Start: 04-01-2024 ambulatory Ashley Orzech Facility: [facility] [place] Start: 02-19-2024 End: 02-19-2024 ambulatory [facility] Start: 11-21-2023 End: 11-25-2023 Evaluation and management of inpatient Jaimie Lopez Facility:[facility] Start: 11-21-2023 Non-patient / Non-visit MD Umesh Magana Work Phone: [facility] Work Phone: Start: 11-21-2023 End: 11-25-2023 Evaluation and management of inpatient MD Madison Magana Work Phone: [facility] Work Phone: Start: 01-23-2023 End: 01-24-[address] MADISON MAGANA . Facility: Start: 08-13-2022 End: 08-13-[address] MADISON MAGANA . Facility: Start: 04-09-2022 End: 04-09-2022 ambulatory MYKE CANTU . Facility: Start: 05-10-2017 End: 05-11-2017 Ambulatory PROVIDER UNKNOWN Facility:[facility] Start: 05-07-2017 End: 05-08-2017 Ambulatory DEFAULT PHYSICIAN Facility:[facility] Procedures Date Procedure Procedure Detail Performing Clinician Start: 09-24-2024 Cystoscopy Benjy ALEJO Start: 08-20-2024 Flexible cystoscope (physical object) Benjy JOHNSON Start: 01-08-2024 Cardioversion Ashley Or alexis Start: 11-23-2023 Plain chest X-ray MD Gurrola Work Phone: Start: 11-22-2023 [facility] Angio w/grafts MD Madison Magana Work Phone: Start: 11-21-2023 Plain chest X-ray MD Gurrola Work Phone: Cardiac catheter (ph ysical object) Ashley Orzech Comment on above: Dr. Siddiqi 4 Cholecystectomy Ashley Orzec h Colonoscopy Ashley Orzech History of coronary artery bypass grafting S/P CABG (coronary artery bypass graft) MD Madison Magana Work Phone: History of coronary artery bypass grafting Ashley [employer] Hysterectomy Ashley [employer] Structure of vertebr al column (body structure) Aslhey [employer] Surgical procedure o n cervical spine Benjy JOHNSON Surgical procedure o n lumbar spine Benjy JOHNSON Plan of Treatment Date Care Activity Detail Author Start: 11-25-2023 [facility] Start: 11-21-2023 Hospital admission [facility] Start: 11-21-2023 Referral to Author'S Agent [facility] Patient Education Atrial Fibrill ation (DC) Heart Failure, Adult (DC) Flu, Adult (DC) Going Home on Blood Thinners [facility] Work Phone: Patient referral [facility] Work Phone: Immunizations Immunization Date Immunization Notes Care Provider [facility] 07-10-2024 influenza virus vacc ine, unspecified formulation Benjy JOHNSON [facility] 06-06-2023 influenza virus vacc ine, unspecified formulation [employer] [facility] 03-28-2022 SARS-CoV-2 mRNA (gnpyrzxfxit-urcy-mdxxxs e) vaccine [employer] [facility] 06-16-2021 influenza virus vacc ine, unspecified formulation [employer] [facility] 06-16-2021 SARS-CoV-2 (COVID-19 ) mRNA BNT-162b2 vax [employer] [facility] 12-08-2020 SARS-CoV-2 (COVID-19 ) mRNA BNT-162b2 vax Ashley Orzech [facility] 11-17-2020 SARS-CoV-2 (COVID-19 ) mRNA BNT-162b2 vax Ashley Orzech [facility] 06-22-2020 influenza virus vacc ine, unspecified formulation Ashley Orzech [facility] 06-22-2020 pneumococcal polysaccharide vaccine, 23 valent [employer] [facility] 07-31-2019 influenza virus vacc ine, unspecified formulation Ashley Orzech [facility] 07-28-2018 influenza virus vacc ine, unspecified formulation Ashley Orzech [facility] 06-21-2017 influenza, unspecifi ed formulation Ashley Orzech [facility] 05-08-2016 influenza virus vacc ine, unspecified formulation Ashley Orzech [facility] 06-08-2015 influenza virus vacc ine, unspecified formulation Ashley Orzech [facility] Payers Date Payer Category Payer Self-pay 2020 Medicare [id number] 1960 Unknown [id number] 2.16.84 [id number] 1960 Unknown [id number] 2.16.84 [id number] 1960 Unknown [id number] 2.16.84 [id number] 1960 Unknown [id number] 2.16.8 [id number] 1960 Unknown [id number] 2.16.8 [id number] 1960 Unknown [id number] 2.16.8 [id number] 1960 Unknown [id number] 2.16.8 [id number] 1960 Unknown [id number] 2.16.8 [id number] 1960 Unknown [id number] 2.16.8 [id number] 1960 Unknown [id number] 2.16.8 [id number] 1957 Medicare [id number] Medicare [id number] Unknown Unknown [id number] Unknown [id number] 2.16.8 [id number] Social History Date Type Detail Facility Start: 11-22-2023 End: 08-20-2024 Tobacco smoking status NHIS Ex-smoker (finding) [facility] Start: 1960 Sex Assigned At Female F [facility] Tobacco smoking status Never [facility] Sex Assigned At Female [place] Start: 09-17-2024 Tobacco smoking status Heavy t obacco smoker (finding) [place] Goals Date Patient Goal Desired Activity /State Functional Status Date Assessment Result Facility 09-17-2024 Functional Status No [facility] 08-20-2024 Functional Status N/A [facility] 06-02-2024 Functional Status N/A [facility] 11-25-2023 Functional status Patient at [facility] Work Phone: Mental Status Date Assessment Result Facility 11-25-2023 Cognitive function Cognitive Sta tus Patient at Baseline [facility] Work Phone: Clinical Notes 11-21-2023 to 02-09-2025 Note Date & Type Note Facility 02-09-2025 Note [place] [facility] Reason for visit: Atrial fibrillation HPI: Melissa Dubose is a 64 y.o. year old with past medical history of CAD s/p CABG in 2016, hypertension, atrial fibrillation who was previously known to have heart failure symptoms with an EF of 25%. She had presented with A-fib with RVR during these times and had recently undergone a cardiac catheterization at [facility] which showed the grafts were patent. She was placed on Eliquis for her anticoagulation and developed lower GI bleeding with possible colitis which led to anticoagulation being interrupted. Subsequently she was seen by Dr. PAVON and he proceeded to do a MALGORZATA guided cardioversion which was performed on 01/17/2024 wherein she converted to sinus rhythm and a cardiac evaluation with a card with catheterization done on 11/22/2023 showed patent bypass grafts. Repeat echocardiogram shown on 06/24/2024 showed the EF was 20%. An event monitor to explain the cause of cardiomyopathy did not reveal any evidence of atrial fibrillation. Subsequently with treatment with GDMT the EF improved in November 2024 to 50 to 55% PMH: Past Medical History: Diagnosis Date Abnormal ECG Arrhythmia Arteriosclerosis of coronary artery bypass graft 06/28/2016 Atrial fibrillation (CMS/HCC) Cardiomyopathy (CMS/HCC) CHF (congestive heart failure) (CMS/HCC) Diabetes mellitus (CMS/HCC) History of cardiac cath 05/10/2017 Hyperlipidemia Hypertension Myocardial infarct (CMS/HCC) Tachycardia PSH: Past Surgical History: Procedure Laterality Date BACK SURGERY CARDIAC CATHETERIZATION CORONARY ARTERY BYPASS GRAFT TONSILECTOMY, ADENOIDECTOMY, BILATERAL MYRINGOTOMY AND TUBES SH: Social Determinants of Health Tobacco Use: High Risk (02/09/2025) Patient History Smoking Tobacco Use: Every Day Smokeless Tobacco Use: Never Passive Exposure: Current Alcohol Use: Not on file Financial Resource Strain: Not on file Food Insecurity: Not on file Transportation Needs: Not on file Physical Activity: Not on file Stress: Not on file Social Connections: Not on file Intimate Partner Violence: Unknown (10/31/2023) [place] Safety & Environment Fear of Current or Ex-Partner: Not on file Emotionally Abused: Not on file Physically Abused: Not on file Sexually Abused: Not on file Physically or Sexually Abused: Not on file Depression: Not on file Housing Stability: Not on file Utilities: Not on file Health Literacy: Not on file Allergies: Allergies Allergen Reactions Jardiance [Empagliflozin] Itching Oxycodone-Acetaminophen Weight: 109kg Visit Vitals BP 93/58 (BP Location: Left arm, Patient Position: Sitting) Pulse 74 Ht 1.778 m (5' 10 ) Wt 109 kg (241 lb) SpO2 94% BMI 34.58 kg/m??? OB Status Postmenopausal Smoking Status Every Day BSA 2.32 m??? Meds: Current Outpatient Medications on File Prior to Visit Medication Sig Dispense Refill acetaminophen (Tylenol) 325 mg tablet Take 650 mg by mouth every 6 (six) hours if needed for mild pain (1-3 pain score). amLODIPine (Norvasc) 10 mg tablet Take 1 tablet (10 mg) by mouth in the morning. 90 tablet 3 atorvastatin (Lipitor) 40 mg tablet Take 40 mg by mouth in the morning. Eliquis 5 mg tablet Take 5 mg by mouth in the morning and at bedtime. ezetimibe (Zetia) 10 mg tablet Take 1 tablet (10 mg) by mouth once daily as directed. 90 tablet 3 Invokana 100 mg Take 100 mg by mouth before breakfast. Januvia 100 mg tablet Take 100 mg by mouth in the morning. lidocaine (Lidoderm) 5 % patch 1 (one) time each day at the same time. metFORMIN (Glucophage) 500 mg tablet Take 500 mg by mouth with breakfast and with evening meal. metoprolol succinate XL (Toprol-XL) 100 mg 24 hr tablet Take 1 tablet (100 mg) by mouth in the morning. Do not crush or chew. 90 tablet 3 pantoprazole (ProtoNix) 40 mg EC tablet Take 1 tablet (40 mg) by mouth in the morning. Do not crush, chew, or split. 90 tablet 3 sacubitril-valsartan (Entresto) 97-103 mg tablet Take 1 tablet by mouth two times daily. 180 tablet 3 spironolactone (Aldactone) 25 mg tablet Take 0.5 tablets (12.5 mg) by mouth in the morning. 45 tablet 3 tiZANidine (Zanaflex) 4 mg tablet 2 tablets Orally at bedtime for 30 days levoFLOXacin (Levaquin) 500 mg tablet 1 (one) time each day at the same time. predniSONE (Deltasone) 20 mg tablet 1 (one) time each day at the same time. No current facility-administered medications on file prior to visit. ROS: Review of Systems Cardiovascular: Positive for dyspnea on exertion and leg swelling. Physical Exam: Constitutional General Appearance: well-nourished, well-developed, appears stated age Level of Distress: comfortable Eyes KAHLIL Neck Neck: supple, trachea midline Carotid Arteries: bilateral normal upstroke, no bruits Jugular Veins: normal jugular venous pressure Thyroid: not enlarged Lungs Respiratory Eff (more content not included)... [facility] 12-04-2024 Note [place] [facility] Subjective Melissa Dubose is a 64 y.o. year old female patient being seen for 3 month follow up. Echo done 11/11/2024. Patient states she has no cardiac complaints at this time. Patient Active Problem List Diagnosis Coronary arteriosclerosis Edema of lower extremity Hypertensive disorder Persistent atrial fibrillation (CMS/HCC) Acute hypoxic respiratory failure (CMS/HCC) Chest pain Diabetes (CMS/HCC) Headache HFrEF (heart failure with reduced ejection fraction) (CMS/HCC) Influenza A Myocardial injury NSTEMI (non-ST elevated myocardial infarction) (CMS/HCC) S/P CABG (coronary artery bypass graft) Shortness of breath History of cardioversion Cardiomyopathy (CMS/HCC) Hyperlipidemia Abnormal result of cardiovascular function study, unspecified Adrenal mass Anticoagulated Former smoker Gastroesophageal reflux disease Gastrointestinal hemorrhage Gross hematuria Kidney stones Leukocytosis OAB (overactive bladder) Personal history of urinary calculi Type 2 diabetes mellitus without complication (CMS/HCC) Current smoker Family History Problem Relation Name Age of Onset Diabetes Mother Atrial fibrillation Mother Hyperlipidemia Mother Kidney disease Sister Heart attack Maternal Grandmother Stroke Maternal Grandmother Social History Tobacco Use Smoking status: Former Types: Cigarettes Smokeless tobacco: Never Substance Use Topics Alcohol use: Not Currently Drug use: Never PACO Melissa is seen in follow up. She is a 64 yo woman with CAD s/p bypass surgery [...] ventricular response. She underwent cardiac catheterization at [facility] which showed patent bypass grafts. She was started on GDMT for heart failure as well as anticoagulation therapy with Eliquis. She then developed lower GI bleeding and possible colitis. She also developed UTI. Anticoagulation therapy was interrupted but then resumed. She was evaluated in our office on 12/11/2023 and [...] November 22, 2023 showed patent bypass grafts. At last visit of 05/01/2024 and due to itching on Jardiance I stopped it. I started spironolactone 12.5 mg once daily. A follow-up echocardiogram on 06/23/2024 showed LVEF to be severely reduced at 20%. I did have her wear an event monitor that has not shown evidence of recurrence of atrial fibrillation. At last visit of 07/29/2024 I increased metoprolol succinate to 100 mg once daily. Also her blood sugar was severely elevated and I had her see Dr Magana Follow-up echocardiogram 08/11/2024 showed LV function moderately reduced with an LVEF of 35%. hide visit of 08/24/2024 I added amlodipine 10 mg daily to better control her blood pressure. Her echocardiogram November 2024 showed significant improvement in ventricular function with an ejection fraction of 50 to 55%. Today she reports that she has been feeling great over the past 2 months. No significant symptoms of chest pain or shortness of breath. No dizziness or lightheadedness. No syncope. Review of Systems Cardiovascular: Negative for chest pain, dyspnea on exertion, irregular heartbeat, leg swelling, orthopnea, palpitations and syncope. Respiratory: Negative for cough and shortness of breath. Musculoskeletal: Negative for arthritis, falls and neck pain. Gastrointestinal: Negative for diarrhea and dysphagia. Genitourinary: Negative for hematuria. Neurological: Negative for light-headedness and loss of balance. Objective Visit Vitals BP 116/69 (BP Location: Left arm, Patient Position: Sitting) Pulse 62 Ht 1.778 m (5' 10 ) Wt 109 kg (240 lb) SpO2 98% BMI 34.44 kg/m??? OB Status Postmenopausal Smoking Status Former BSA 2.32 m??? Physical Exam Constitutional: Appearance: She is well-developed. She is obese. She is not ill-appearing. HENT: Head: Normocephalic and atraumatic. Nose: Nose normal. Eyes: General: No scleral icterus. Pupils: Pupils are equal, round, and reactive to light. Neck: Thyroid: No thyromegaly. Vascular: No JVD. Cardiovascular: Rate and Rhythm: Normal rate and regular rhythm. Pulses: Radial pulses are 0 on the right side and 0 on the le (more content not included)... [facility] 09-28-2024 Note Progress Note-Physic luiz Patient: MELISSA DUBOSE Age: 64 years Sex: Female : 1960 Associated Diagnoses: None Author: Aristeo Bhakta Jr, DO Preoperative Information Anesthesia Preop Info: Time patient last ate or drank 09/24/2024 00:00:00. Anesthesia history: Patient history: None. Family history+: None. Informed consent: Signed by patient. Re-evaluation prior to induction: Initial evaluation reviewed: No significant change. Review of Systems Eye: Negative except as documented in history of present illness. Ear/Nose/Mouth/Throat: Negative except as documented in history of present illness. Respiratory: Negative except as documented in history of present illness. Cardiovascular: Negative except as documented in history of present illness. Musculoskeletal: Negative except as documented in history of present illness. Neurologic: Negative except as documented in history of present illness. Health Status Allergies: Allergic Reactions (Selected) No Known Allergies Problem list: All Problems Type 2 diabetes mellitus without complication / SNOMED CT 424338567 / Confirmed Tobacco use / SNOMED CT 9430775013 / Confirmed Smoker / SNOMED CT 653652501 / Confirmed Added secondary to documentation in Social History. OAB (overactive bladder) / SNOMED CT 1654529002 / Confirmed Myocardial infarction / SNOMED CT 75399050 / Confirmed Heart attack / SNOMED CT 19328511 / Confirmed Leukocytosis / SNOMED CT 811248992 / Confirmed Kidney stones / SNOMED CT 981660410 / Confirmed Hypertension / SNOMED CT 9226331341 / Confirmed High cholesterol / SNOMED CT 85333101 / Confirmed Heart failure with reduced ejection fraction. / SNOMED CT 7373021184 / Confirmed Heart disease / SNOMED CT 55006076 / Confirmed Personal history of urinary calculi / SNOMED CT 470486761 / Confirmed Gastrointestinal hemorrhage / SNOMED CT 470187118 / Confirmed Gastroesophageal reflux disease / SNOMED CT 758787939 / Confirmed Gross hematuria / SNOMED CT 510044975 / Confirmed Former smoker / SNOMED CT 30880903 / Confirmed Essential hypertension / SNOMED CT 30712460 / Confirmed Anticoagulated / SNOMED CT 378905100 / Confirmed Coronary arteriosclerosis / SNOMED CT 83568425 / Confirmed Atrial fibrillation / SNOMED CT 56163554 / Confirmed Adrenal mass / SNOMED CT 759320156 / Confirmed Histories Procedure history: Flexible cystoscope (243477867) on 08/20/2024 at 63 Years. Cardioversion (992888135) in the month of 01/2024 at 63 Years. History of - coronary artery bypass grafting (context-dependent category) (7079582667). Cardiac catheter (7505106012). Comments: 06/02/2024 13:32 JASONT - Chiquita Kiran MA, Dr. 11/22/2023 Colonoscopy (100763243). Cholecystectomy (61596875). Hysterectomy (755152416). Surgical procedure on cervical spine x2 (5239375055). Surgical procedure on lumbar spine x2 (8890021075). Social History Social & Psychosocial Habits Alcohol 09/24/2024 Risk Assessment: Denies Alcohol Use Tobacco 09/24/2024 Tobacco Use: 10 or more cigarettes (1/, Former smoker, quit more Smokeless tobacco use: Never Type: Cigarettes 09/24/2024 Risk Assessment: High Risk . Physical Examination Airway: Mallampati classification: II (soft palate, fauces, uvula visible). Respiratory: adequate air exchange. Cardiovascular: Regular rhythm. Plan [employer] [employer] (ASA) physical status classification: Class III. Anesthetic Preoperative Plan: Anesthesia General. [facility] Comment on above: Result Comment: Elec tronically Signed By: Aristeo Bhakta Jr, DO\.br\Date and Time Signed: 09/28/24 11:04 EST 09-28-2024 Note Progress Note-Physic luiz Patient: MELISSA DUBOSE Age: 64 years Sex: Female : 1960 Associated Diagnoses: None Author: Aristeo Bhakta Jr, DO Postoperative Information Postoperative disposition: Postoperative disposition: To PACU. Optimetrix number: Optimetrix number [id number]. Anesthetic utilized: General. Health Status Allergies: Allergic Reactions (Selected) No Known Allergies Physical Examination Vital Signs 09/24/2024 15:43 EST Heart Rate Monitored 77 bpm SpO2 93 % 09/24/2024 15:43 EST Systolic Blood Pressure 115 mmHg Diastolic Blood Pressure 69 mmHg Mean Arterial Pressure, Monitered 85 mmHg 09/24/2024 15:43 EST Temperature Temporal Artery 36.4 DegC Blood Pressure Location Left arm 09/24/2024 15:30 EST Heart Rate Monitored 69 bpm Respiratory Rate Monitored 17 br/min Systolic Blood Pressure 122 mmHg Diastolic Blood Pressure 73 mmHg Blood Pressure Location Left arm Mean Arterial Pressure, Cuff 89 mmHg SpO2 92 % 09/24/2024 15:05 EST Heart Rate Monitored 65 bpm Respiratory Rate Monitored 19 br/min Systolic Blood Pressure 123 mmHg Diastolic Blood Pressure 72 mmHg Mean Arterial Pressure, Cuff 89 mmHg SpO2 96 % 09/24/2024 15:00 EST Heart Rate Monitored 72 bpm Respiratory Rate Monitored 13 br/min Systolic Blood Pressure 119 mmHg Diastolic Blood Pressure 73 mmHg Mean Arterial Pressure, Cuff 88 mmHg SpO2 97 % 09/24/2024 14:58 EST Temperature Temporal Artery 36.2 DegC LOW Heart Rate Monitored 69 bpm Respiratory Rate Monitored 20 br/min Systolic Blood Pressure 139 mmHg Diastolic Blood Pressure 78 mmHg Blood Pressure Location Left arm Mean Arterial Pressure, Cuff 98 mmHg SpO2 97 % Pain Assessment: Controlled. General: Awake, Alert, Appropriate. Respiratory: Adequate air exchange. Cardiovascular: Stable, Normal peripheral perfusion. Neurological: Normal sensory function, Normal motor function. Assessment Anesthetic outcome No anesthetic complications noted. Adequate pain relief. able to void without difficulty, able to ambulate with assist, tolerating PO intake, no N/V. Review / Management Condition: Stable. Plan Transfer/Discharge: Transfer/Discharge Discharge when meets criteria ( To home ). [facility] Comment on above: Result Comment: Elec tronically Signed By: Aristeo Bhakta Jr, DO.patience\Date and Time Signed: 09/28/24 11:04 EST 09-24-2024 Hospital Discharge instructions Patient Education 09/24/2024 15:14:33 Post Op Patient Instructions - FT (CUSTOM) 09/24/2024 15:14:30 Yelt[facility]Kqte-ia Utereroscopy,Lithotripsy, Stone Extraction, Stent Placement(CUSTOM) [facility] [place], [place] Dr. Benjy Lobo Post-operative Instructions for Ureteroscopy, Laser Lithotripsy, Stone Extraction and Stent Placement There are no incisions or dressings to be concerned with, as the procedure was performed inside the urinary system. For 24 hours after surgery: No driving or operating machinery Do not make important decisions Do not consume alcohol, sleeping pills Stent Placement You may have a stent which spans the distance between your bladder and your kidney, allowing urine to pass through. It prevents blockage from swelling, kidney stones in ureter (tube connecting the kidney to the bladder), or scars. The presence of the stent may cause: Back or side pain, especially with urination Frequent or urgent urination Bladder pressure or pain Blood in urine You may pass stone debris or small blood clots, which is expected. Drinking plenty of water to dilute the urine may help. If there is a thread coming out of urinary channel, be careful not to accidently pull on this, as it is attached to the stent. The stent will most likely be removed in the office during a short procedure in which a scope is placed into the bladder, the stent is grasped and removed. At other times the stent may need to stay longer, either in preparation for other procedures or for other reasons. If it is to remain skilled nursing, however, changes of the stent are required (about every 3-4 months). Diet You may resume your normal diet, but you may want to start slowly and avoid spicy food, caffeine, carbonated beverages and alcohol, especially if you have a stent. Your diet and fluid intake may make irritation from the stent worse. Activity You may resume your normal activities, although you should take it easy on the day of the procedure. Minimizing activity may decrease the back discomfort and irritation from the stent, if present. Medications You may resume your home medications unless instructed otherwise. Hold aspirin, ibuprofen, Coumadin (warfarin) and other blood thinners until your office visit (we will discuss when to resume these medications) Take your prescribed medications as directed, including your antibiotics. You may also be given a prescription for pain medicine or medicines to help with the bladder irritation from stent, if present. Things to watch for which would require an Emergency Room Visit (or call 911) (This is not a complete list) Fever over 101.5 degrees, with or without chills Severe bleeding Severe drug reactions with itching, hives, rash, or severe flank pain Tenderness or swelling or the calves, chest pain, or shortness of breath Please call the office to arrange for your post-operative appointment (with XRAY) [phone] Follow Up Care 08/25/2024 14:44:55 With:Benjy JOHNSON Address: [address] [place] [address]- Business (1) When: Unknown Comments:Call for followup appointment. I found no obvious abnormality in the bladder or by shooting the x-ray dye up into the kidneys. As we discussed I did collect a saline solution after pushing it up into each kidney. You do have the left-sided kidney stone which at some point, we could consider treating with stone busting.The timing of that is up to you. 1 option would be to simply see her back in about 6 months with an abdominal x-ray. The other option would be to set you up for external stone busting which may require an indwelling stent due to the size of the stone. It is currently sitting in the bottom of the left kidney.I still do not think this is the reason for the intermittent blood in the urine but it is a possibility.Please finish antibiotics which I prescribed for you and I did send into the pharmacy.Have a great day. [place] 09-24-2024 Note Patient Education - Text [facility] [place], [place] Dr. Benjy Lobo Post-operative Instructions for Ureteroscopy, Laser Lithotripsy, Stone Extraction and Stent Placement There are no incisions or dressings to be concerned with, as the procedure was performed inside the urinary system. For 24 hours after surgery: ??? No driving or operating machinery ??? Do not make important decisions ??? Do not consume alcohol, sleeping pills Stent Placement You may have a stent which spans the distance between your bladder and your kidney, allowing urine to pass through. It prevents blockage from swelling, kidney stones in ureter (tube connecting the kidney to the bladder), or scars. The presence of the stent may cause: ??? Back or side pain, especially with urination ??? Frequent or urgent urination ??? Bladder pressure or pain ??? Blood in urine You may pass stone debris or small blood clots, which is expected. Drinking plenty of water to dilute the urine may help. If there is a thread coming out of urinary channel, be careful not to accidently pull on this, as it is attached to the stent. The stent will most likely be removed in the office during a short procedure in which a scope is placed into the bladder, the stent is grasped and removed. At other times the stent may need to stay longer, either in preparation for other procedures or for other reasons. If it is to remain skilled nursing, however, changes of the stent are required (about every 3-4 months). Diet You may resume your normal diet, but you may want to start slowly and avoid spicy food, caffeine, carbonated beverages and alcohol, especially if you have a stent. Your diet and fluid intake may make irritation from the stent worse. Activity You may resume your normal activities, although you should take it easy on the day of the procedure. Minimizing activity may decrease the back discomfort and irritation from the stent, if present. Medications ??? You may resume your home medications unless instructed otherwise. ??? Hold aspirin, ibuprofen, Coumadin (warfarin) and other blood thinners until your office visit (we will discuss when to resume these medications) ??? Take your prescribed medications as directed, including your antibiotics. You may also be given a prescription for pain medicine or medicines to help with the bladder irritation from stent, if present. Things to watch for which would require an Emergency Room Visit (or call 911) (This is not a complete list) ??? Fever over 101.5 degrees, with or without chills ??? Severe bleeding ??? Severe drug reactions with itching, hives, rash, or severe flank pain ??? Tenderness or swelling or the calves, chest pain, or shortness of breath Please call the office to arrange for your post-operative appointment (with XRAY) [phone] [facility] 08-24-2024 Note [facility] Subjective Melissa Dubose is a 64 y.o. year old female patient being seen for follow up echo performed 2 weeks ago. She has been started on some blood sugar medications since last visit and feels better. Had some gross hematuria recently and has been seeing Dr. Johnson of urology. She states she's been having intermittent hematuria. Patient Active Problem List Diagnosis Coronary arteriosclerosis Edema of lower extremity Hypertensive disorder Persistent atrial fibrillation (CMS/HCC) Acute hypoxic respiratory failure (CMS/HCC) Chest pain Diabetes (CMS/HCC) Headache HFrEF (heart failure with reduced ejection fraction) (CMS/HCC) Influenza A Myocardial injury NSTEMI (non-ST elevated myocardial infarction) (CMS/HCC) S/P CABG (coronary artery bypass graft) Shortness of breath History of cardioversion Cardiomyopathy (CMS/HCC) Hyperlipidemia Abnormal result of cardiovascular function study, unspecified Adrenal mass (CMS/HCC) Anticoagulated Former smoker Gastroesophageal reflux disease Gastrointestinal hemorrhage Gross hematuria Kidney stones Leukocytosis OAB (overactive bladder) Personal history of urinary calculi Type 2 diabetes mellitus without complication (CMS/HCC) Family History Problem Relation Name Age of Onset Diabetes Mother Atrial fibrillation Mother Hyperlipidemia Mother Kidney disease Sister Heart attack Maternal Grandmother Stroke Maternal Grandmother Social History Tobacco Use Smoking status: Former Types: Cigarettes Smokeless tobacco: Never Substance Use Topics Alcohol use: Not Currently Drug use: Never PACO Melissa is seen in follow up. She is a 64 yo woman with CAD s/p bypass surgery [...] ventricular response. She underwent cardiac catheterization at [facility] which showed patent bypass grafts. She was started on GDMT for heart failure as well as anticoagulation therapy with Eliquis. She then developed lower GI bleeding and possible colitis. She also developed UTI. Anticoagulation therapy was interrupted but then resumed. She was evaluated in our office on 12/11/2023 and [...] November 22, 2023 showed patent bypass grafts. At last visit of 05/01/2024 and due to itching on Jardiance I stopped it. I started spironolactone 12.5 mg once daily. A follow-up echocardiogram on 06/23/2024 showed LVEF to be severely reduced at 20%. I did have her wear an event monitor that has not shown evidence of recurrence of atrial fibrillation. At last visit of 07/29/2024 I increased metoprolol succinate to 100 mg once daily. Also her blood sugar was severely elevated and I had her see Dr Magana Follow-up echocardiogram 08/11/2024 showed LV function moderately reduced with an LVEF of 35%. She does have shortness of breath on exertion NYHA class II. No significant lower extremity edema. No chest pain. No dizziness or lightheadedness. Her blood pressure is significantly elevated. She took all her medications today. She recently developed hematuria and is being evaluated by Dr. Johnson in urology and will be undergoing a cystoscopy procedure. Review of Systems Cardiovascular: Positive for dyspnea on exertion. Genitourinary: Positive for hematuria. All other systems reviewed and are negative. Objective Visit Vitals BP (!) 148/98 (BP Location: Left arm, Patient Position: Sitting) Pulse 66 Ht 1.778 m (5' 10 ) Wt 109 kg (240 lb) SpO2 95% BMI 34.44 kg/m??? OB Status Postmenopausal Smoking Status Former BSA 2.32 m??? Physical Exam Constitutional: Appearance: She is well-developed. She is obese. She is not ill-appearing. HENT: Head: Normocephalic and atraumatic. Nose: Nose normal. Eyes: General: No scleral icterus. Pupils: Pupils are equal, round, and reactive to light. Neck: Thyroid: No thyromegaly. Vascular: No JVD. Cardiovascular: Rate and Rhythm: Normal rate and regular rhythm. Pulses: Radial pulses are 0 on the right side and 0 on the left side. Heart sounds: Normal heart sounds. No murmur heard. No friction rub. No gallop. Comments: Good ulnar pulse Pulmonary: Effort: Pulmonary effort is normal. No re (more content not included)... [facility] 08-20-2024 Hospital Discharge instructions Patient Education 08/20/2024 14:56:24 Hematuria, Adult Hematuria, Adult Hematuria is blood [...] Follow these instructions at home: Medicines Take evvh-shz-gkurbph and prescription medicines only as told by [...] or the blood stops without treatment. Take lpbn-bso-syzpjxd and prescription medicines only as told by your health care provider. Drink enough fluid to keep your urine pale yellow. This information is not intended to replace advice given to you by your health care provider. Make sure you discuss any questions you have with your health care provider. Document Revised: 04/26/2021 Document Reviewed: 04/26/2021 [employer] Patient Education 2023 [employer]. Follow Up Care 06/12/2024 09:29:06 With:SHANNAN HO, Benjy Sevilla, URL Address: [address] [place] [id number]- When: Unknown [facility] [place] 08-20-2024 Note Patient Education Urology Hematuria, Adult Hematuria is blood in the urine. Blood may be visible in the urine, or it may be identified with a test. This condition can be caused by infections of the bladder, urethra, kidney, or prostate. Other possible causes include: ??? Kidney stones. ??? Cancer of the urinary tract. ??? Too much calcium in the urine. ??? Conditions that are passed from parent to child (inherited conditions). ??? Exercise that requires a lot of energy. [...] cancers. Follow these instructions at home: Medicines ??? Take ohje-cyo-lhazrmg and prescription medicines only as told by your health care provider. ??? If you were prescribed an antibiotic medicine, take it as told by your health care provider. Do not stop taking the antibiotic even if you start to feel better. Eating and drinking ??? Drink enough fluid to keep your urine pale yellow. It is recommended that you drink 3?4 quarts (2.8?3.8 L) a day. If you have been diagnosed with an infection, drinking cranberry juice in addition to large amounts of water is recommended. ??? Avoid caffeine, tea, and carbonated beverages. These tend to irritate the bladder. ??? Avoid alcohol because it may irritate the prostate (in males). General instructions ??? If you have been diagnosed with a kidney stone, follow your health care provider's instructions about straining your urine to catch the stone. ??? Empty your bladder often. Avoid holding urine for long periods of time. ??? If you are female: ? After a bowel movement, wipe from front to back and use each piece of toilet paper only once. ? Empty your bladder before and after sex. ??? Pay attention to any changes in your symptoms. Tell your health care provider about any changes or any new symptoms. ??? It is up to you to get the results of any tests. Ask your health care provider, or the department that is doing the test, when your results will be ready. ??? Keep all follow-up visits. This is important. Contact a health care provider if: ??? You develop back pain. ??? You have a fever or chills. ??? You have nausea or vomiting. ??? Your symptoms do not improve after 3 days. ??? Your symptoms get worse. Get help right away if: ??? You develop severe vomiting and are unable to take medicine without vomiting. ??? You develop severe pain in your back or abdomen even though you are taking medicine. ??? You pass a large amount of blood in your urine. ??? You pass blood clots in your urine. ??? You feel very weak or like you might faint. ??? You faint. Summary ??? Hematuria is blood in the urine. It has many possible causes. ??? It is very important that you tell your health care provider about any blood in your urine, even if it is painless or the blood stops without treatment. ??? Take ijmo-noi-nekffpe and prescription medicines only as told by your health care provider. ??? Drink enough fluid to keep your urine pale yellow. This information is not intended to replace advice given to you by your health care provider. Make sure you discuss any questions you have with your health care provider. Document Revised: 04/26/2021 Document Reviewed: 04/26/2021 [employer] Patient Education ? 2023 [employer]. [facility] 08-20-2024 Evaluation + Plan note Diagnostic Tests [facility] ([facility]) 08/20/24 [place] 07-29-2024 Note [facility] Subjective Melissa Dubose is a 63 y.o. year old female patient being seen for follow up echo w/ [facility]. Patient Active Problem List Diagnosis Coronary arteriosclerosis Edema of lower extremity Hypertensive disorder Persistent atrial fibrillation (CMS/HCC) Acute hypoxic respiratory failure ([facility]/HCC) Chest pain Diabetes ([facility]/HCC) Headache HFrEF (heart failure with reduced ejection fraction) ([facility]/HCC) Influenza A Myocardial injury NSTEMI (non-ST elevated myocardial infarction) ([facility]) S/P CABG (coronary artery bypass graft) Shortness of breath History of cardioversion Cardiomyopathy ([facility]) Hyperlipidemia Abnormal result of cardiovascular function study, unspecified Adrenal mass (CMS/[facility]) Anticoagulated Former smoker Gastroesophageal reflux disease Gastrointestinal hemorrhage Gross hematuria Kidney stones Leukocytosis OAB (overactive bladder) Personal history of urinary calculi Type 2 diabetes mellitus without complication (CMS/HCC) Family History Problem Relation Name Age of [...] ventricular response. She underwent cardiac catheterization at [facility] which showed patent bypass grafts. She was started on GDMT for heart failure as well as anticoagulation therapy with Eliquis. She then developed lower GI bleeding and possible colitis. She also developed UTI. Anticoagulation therapy was interrupted but then resumed. She was evaluated in our office on 12/11/2023 and [...] November 22, 2023 showed patent bypass grafts. At last visit of 05/01/2024 and due to itching on Jardiance I stopped it. I started spironolactone 12.5 mg once daily. A follow-up echocardiogram on 12/23/2023 showed LVEF to be severely reduced at 20%. I did have her wear a knee event monitor that so far has not shown evidence of recurrence of atrial fibrillation. Final result is still pending. Today she underwent BMP testing that showed severely elevated blood sugar level at 640 and BUN 18 and creatinine 1.38. She does have shortness of breath on exertion NYHA class II-III. No significant lower extremity edema. No chest pain. No dizziness or lightheadedness. Review of Systems Cardiovascular: Positive for dyspnea on exertion. All other systems reviewed and are negative. Objective Visit Vitals BP 122/80 (BP Location: Left arm, Patient Position: Sitting) Pulse 83 Ht 1.778 m (5' 10 ) Wt 105 kg (232 lb) SpO2 91% BMI 33.29 kg/m??? OB Status Postmenopausal Smoking [...] swelling. Cervical back: Neck supple. Right lower leg: No edema. Left lower leg: No edema. Skin: General: Skin is warm and dry. Neurological: General: No focal deficit present. Mental Status: She is alert and oriented to person, place, and time. P (more content not included)... [facility] 06-02-2024 Hospital Discharge instructions Patient Education 06/02/2024 [...] Follow these instructions at home: Medicines Take xaey-zti-doolfks and prescription medicines only as told by [...] or the blood stops without treatment. Take zbmv-txs-teejhvf and prescription medicines only as told by your health care provider. Drink enough fluid to keep your urine pale yellow. This information is not intended to replace advice given to you by your health care provider. Make sure you discuss any questions you have with your health care provider. Document Revised: 04/26/2021 Document Reviewed: 04/26/2021 [employer] Patient Education 2023 [employer]. 06/02/2024 14:44:31 Dietary Guidelines to Help Prevent [...] include: ?8 oz (237 mL) of milk, heohlrq-zutqyauumgex-sjfty milk, and calcium-fortifiedfruit juice. Calcium-fortified means that [...] ?Spinach (cooked), rhubarb, beets, sweet potatoes, and [place]ib[place]ian chard. ?Peanuts. ?Potato chips, divehi fries, and baked potatoes with skin on. ?Nuts and nut products. ?Chocolate. If you regularly take a diuretic medicine, make sure to eat at least 1 or 2 servings of fruits or vegetables that are high in potassium each day. These include: ?Avocado. ?Banana. ?[place], prune, carrot, or tomato juice. ?Baked potato. [...] magnesium, fish oil, or vitamin B6. Take adcb-ohg-tenkwjl and prescription medicines only as told by [...] Casseroles. Pizza. Lasagna. Frozen meals. Potato chips. Haitian fries. The items listed above may not [...] provider. Document Revised: 12/06/2022 Document Reviewed: 12/06/2022 [employer] Patient Education 2023 [employer]. Follow Up Care 04/30/2024 14:04:54 With:SHANNAN HO, Benjy Sevilla, URL Address: [facility] [employer] [place] [id number] When: Unknown Comments:cysto [facility] 06-02-2024 Note Patient Education Nephrology Dietary Guidelines [...] ? 8 oz (237 mL) of milk, odpmydc-ibojzdwujlxp-drprc milk, and calcium-fortifiedfruit juice. Calcium-fortified means that [...] Spinach (cooked), rhubarb, beets, sweet potatoes, and [place]ib[place]ian chard. ? Peanuts. ? Potato chips, divehi fries, and baked potatoes with skin on. ? Nuts and nut products. ? Chocolate. ? If you regularly take a diuretic medicine, make sure to eat at least 1 or 2 servings of fruits or vegetables that are high in potassium each day. These include: ? Avocado. ? Banana. ? [place], prune, carrot, or tomato juice. ? Baked [...] fish oil, or vitamin B6. ? Take bjwj-oyc-jylcpgo and prescription medicines only as told by your health care provider. These include suppleme (more content not included)... [facility] 06-02-2024 Evaluation + Plan note Diagnostic Tests PendingUrine Cytology ([facility]) 06/02/24 [place] 05-01-2024 Note [place] [facility] - [facility] Subjective Melissa Dubose is a [...] Myocardial injury NSTEMI (non-ST elevated myocardial infarction) (CMS/HCC) S/P CABG (coronary artery bypass graft) Shortness [...] ventricular response. She underwent cardiac catheterization at [facility] which showed patent bypass grafts. She [...] Allergen Reactions Oxycodone-Gilbert (more content not included)... [facility] 02-19-2024 Note [facility] Note Reason for cardiology consult: Patient here for follow up MALGORZATA/DCCV on 01/17/[address] Ria Schneider. Chief Complaint: Itching HPI: Melissa Dubose is a 63 y.o. female with history of CAD, s/p CABG and non-STEMI 2015, history of hypertension, A-fib Recently she was admitted to an outside hospital with worsening shortness of breath and influenza A. She was found to have acute heart failure with an ejection fraction around 25% and elevated cardiac enzymes as well as new onset atrial fibrillation with rapid ventricular response. She underwent cardiac catheterization at [facility] which showed patent bypass grafts. She [...] Global left v (more content not included)... [facility] 11-25-2023 Discharge summary Note Date/Time November 25, 2023 1:11pm [facility] [address] [place] [address] Discharge Summary Signed Patient: Melissa Dubose MR#: [id number] : 1960 Acct:[id number] Age/Sex: 63 / F Adm Date: 4 Loc: Room: [address] [place] [address]: Johnny Bernal MD Copies to: MD Madison Nair MD~ Providers Date of Discharge: 11/25/23 Discharging Provider: Johnny Bernal Primary Care Provider: Madison Magana Consults: 11/21/23 02:44 Consult to Case Management [...] who presented to the emergency department at [facility] with chest pain, shortness of breath, [...] will befollowed by her PCP and her cotton stomper. Time Spent with Patient Time spent providing/coordinating [...] Low-Cholesterol Additional Instructions: DISCHARGE INSTRUCTIONS FOR CARDIAC UTILITY BILL COLLECTOR PROCEDURE: Heart Cath The following instructions have [...] cold, numb, blue or white, call the cotton stomper immediately. 4. ACTIVITY: You are advised to [...] bottle, follow the instructions on the bottle. [facility] is not responsible for incorrect prescription [...] tablet 1 tab PO Q12HR Follow Up: [facility] [Provider Group] - 12/11/23 11:00 am (You will follow up with the nurse practitioner You have been scheduled for a follow up appointment for the following date and time, please call to reschedule if needed.) Madison Magana MD [Primary Care Provider] - 11/28/23 9:45 am (You have been scheduled for a follow up appointment for the following date and time, please call to reschedule if needed.) Documented By: Johnny Bernal MD 11/25/23 1305 Signed By: <Electronically signed by Johnny Bernal MD> 11/25/23 6009 [facility] Work Phone: 1(951) 403-983203-17-2024 Progress note Author Winter Norris [facility] November 24, 2023 10:00am Note Date/Time November 24, 2023 9:5 7am [facility] [address] [place], [place] [id number] Hospitalist Progress Note Signed Patient: Melissa Dubose MR#: [id number] : 1960 Acct:[id number] Age/Sex: 63 / F Adm Date: 4 Loc: Room: 8W2104-4 Type: ADM IN Attending Dr: Winter Norris [...] 86% on room air upon arrival to [facility] emergency room, 4 L nasal [...] PT/OT. Documented By: Winter Norris MD 11/24/23 3858 Signed By: <Electronically signed by Winter Norris MD> 11/24/23 1000 [facility] Work Phone: 1(769) 726-977103-16-2024 Progress note Author Justine Jacobo [facility] November 23, 2023 1:38pm Note Date/Time November 23, 2023 1:2 9pm [facility] [address] [place] [address] Cardiology Progress Note Signed Patient: Melissa Dubose MR#: [id number] : 1960 Acct:[id number] Age/Sex: 63 / F Adm Date: 4 Loc: 4 Room: [address] [place] [address] Type: ADM IN Attending Dr: Winter Norris [...] % (Auto) 72.7 Lymph % (Auto) 17.7 [place] % (Auto) 9.5 Eos % (Auto) 0.0 Baso % (Auto) 0.1 Nucleat RBC Rel Count 0.1 Neut # (Auto) 7.0 Lymph # (Auto) 1.7 [place] # (Auto) 0.9 H Eos # (Auto) [...] MPV Neut % (Auto) Lymph % (Auto) [place] % (Auto) Eos % (Auto) Baso % (Auto) Nucleat RBC Rel Count Neut # (Auto) Lymph # (Auto) [place] # (Auto) Eos # (Auto) Baso # [...] bypass graft (4) Coronary artery disease involving seneca-cayuga coronary artery of seneca-cayuga heart without angina pectoris: Code(s): I25.10 - Atherosclerotic heart disease of seneca-cayuga coronary artery without angina pectoris (5) Myocardial injury: Code(s): I5A - Non-ischemic myocardial injury (non-traumatic) Plan # Admitted for cough and SOB 2/2 Influenza A infection # Mild acute HF in setting of HFrEF due to dilated ischemic cardiomyopathy - NYHA II, ACC C. # Moderate to severe MR # Paroxysmal nonvalvular Atrial fibrillation - Rate controlled. [id number] = 5. # Non-ACS troponin elevation due to myocardial injury - Secondary to influenza and mild acute heart failure. # CAD s/p 3v CABG (done ~2013) - No angina. C this admission shows patent grafts. # Other: T2DM, HTN. Echo 11/21/23 - EF 25%, severe LV dilation, severely dilated LA, moderately dilated RA, moderate to severe MR, mild TR, RVSP 60 mmHg consistent with severe pulmonary hypertension, moderately dilated IVC, PFO by color Doppler. [facility] 11/22/23 - Severe seneca-cayuga coronary artery disease with patent grafts BALLESTEROS [...] up with her primarycardiologist Dr. Dukes at [facility] in 1-2 weeks. Documented By: Justine Jacobo MD 11/07 03/02 1327 Signed By: <Electronically signed by Justine Jacobo MD> 11/23/23 1333 [facility] Work Phone: 1(230) 931-769303-16-2024 Progress note Author Winter Norris [facility] November 23, 2023 10:04am Note Date/Time November 23, 2023 9:5 4am [facility] [address] [place] [address] Hospitalist Progress Note Signed Patient: Melissa Dubose MR#: [id number] : 1960 Acct:[id number] Age/Sex: 63 / F Adm Date: 4 Loc: Room: 3A2143-6 Type: ADM IN Attending Dr: Winter Norris [...] 86% on room air upon arrival to [facility] emergency room, 4 L nasal [...] MD 11/23/2352 Signed By: <Electronically signed by Wintre Norris MD> 11/23/23 1004 [facility] Work Phone: 1([phone]) 437-947003-15-2024 Progress note Author Jayne Vallecillo [facility] November 22, 2023 3:26pm Note Date/Time November 22, 2023 3:1 5pm [facility] [address] [place] [address] Cardiology Progress Note Signed Patient: Melissa Dubose MR#: [id number] : 1960 Acct:[id number] Age/Sex: 63 / F Adm Date: 4 Loc: Room: [address] [place] [address] Type: ADM IN Attending Dr: Winter Norris MD Copies to: ~ Date of Service: 11/22/2023 Subjective Interval history: - No acute events overnight. Continues to have mild dyspnea and orthopnea. - [facility] completed today by Dr Siddiqi. Exam Physical [...] MPV Neut % (Auto) Lymph % (Auto) [place] % (Auto) Eos % (Auto) Baso % (Auto) Nucleat RBC Rel Count Neut # (Auto) Lymph # (Auto) [place] # (Auto) Eos # (Auto) Baso # (Auto) PT INR APTT 152.4 H* 47.2 H PHA Creatinine Clear Sodium Potassium Chloride Carbon Dioxide Anion Gap BUN Creatinine Est GFR (CKD-EPI) POC Glucose 345 POC Glucose Comment Urine Color Urine Appearance Urine pH Ur Specific [place] Urine Protein Urine Glucose (UA) Urine Ketones Urine Occult Blood Urine Nitrite Urine Bilirubin Urine Urobilinogen Ur Leukocyte Esterase Urine RBC Urine WBC Ur Squamous Epith Cells Urine Bacteria Hyaline Casts 11/21/23 11/21/23 11/21/23 18:15 20:45 20:45 Corrected WBC Uncorrected WBC Count RBC Hgb Hct MCV MCH MCHC RDW Plt Count MPV Neut % (Auto) Lymph % (Auto) [place] % (Auto) Eos % (Auto) Baso % (Auto) Nucleat RBC Rel Count Neut # (Auto) Lymph # (Auto) [place] # (Auto) Eos # (Auto) Baso # (Auto) PT INR APTT PHA Creatinine Clear Sodium Potassium Chloride Carbon Dioxide Anion Gap BUN Creatinine Est GFR (CKD-EPI) POC Glucose 405 H* POC Glucose Comment Cleaned meter Urine Color Yellow Urine Appearance Clear Urine pH 5.5 Ur Specific [place] 1.012 Urine Protein Negative Urine Glucose (UA) [...] % (Auto) 81.3 Lymph % (Auto) 10.0 [place] % (Auto) 8.6 Eos % (Auto) 0.0 Baso % (Auto) 0.1 Nucleat RBC Rel Count 0.1 Neut # (Auto) 5.3 Lymph # (Auto) 0.6 L [place] # (Auto) 0.6 Eos # (Auto) 0.0 Baso # (Auto) 0.0 PT 14.0 H INR 1.2 APTT 27.6 PHA Creatinine Clear 68.56 Sodium 138 Potassium 4.7 Chloride 103 Carbon Dioxide 28.3 Anion Gap 11.4 BUN 24 Creatinine 1.15 Est GFR (CKD-EPI) 54.198 POC Glucose 354 POC Glucose Comment Will repeat test Urine Color Urine Appearance Urine pH Ur Specific [place] Urine Protein Urine Glucose (UA) Urine Ketones Urine Occult Blood Urine Nitrite Urine Bilirubin Urine Urobilinogen Ur Leukocyte Esterase Urine RBC Urine WBC Ur Squamous Epith Cells Urine Bacteria Hyaline Casts 11/22/23 11:31 Corrected WBC Uncorrected WBC Count RBC Hgb Hct MCV MCH MCHC RDW Plt Count MPV Neut % (Auto) Lymph % (Auto) [place] % (Auto) Eos % (Auto) Baso % (Auto) Nucleat RBC Rel Count Neut # (Auto) Lymph # (Auto) [place] # (Auto) Eos # (Auto) Baso # (Auto) PT INR APTT PHA Creatinine Clear Sodium Potassium Chloride Carbon Dioxide Anion Gap BUN Creatinine Est GFR (CKD-EPI) POC Glucose 181 POC Glucose Comment Urine Color Urine Appearance Urine pH Ur Specific [place] Urine Protein Urine Glucose (UA) Urine Ketones [...] bypass graft (4) Coronary artery disease involving seneca-cayuga coronary artery of seneca-cayuga heart without angina pectoris: Code(s): I25.10 - Atherosclerotic heart disease of seneca-cayuga coronary artery without angina pectoris (5) Myocardial injury: Code(s): I5A - Non-ischemic myocardial injury (non-traumatic) Plan # Mild acute HF in setting of newly diagnosed HFrEF due to undefined cardiomyopathy # Dilated ischemic cardiomyopathy EF 25% # Moderate to severe MR # Atrial fibrillation [id number] = 5 # Influenza A infection # [...] Recommendations: - LHC completed today shows severe seneca-cayuga coronary artery disease with patent grafts BALLESTEROS [...] <Electronically signed by Jayne Vallecillo MD> 11/22/23 1528 [facility] Work Phone: [phone]) 357-905303-15-2024 Consult note Author W Devang [facility] November 22, 2023 2:25pm Note Date/Time November 22, 2023 2:2 5pm [facility] [address] [place] [address] Cardiology Consult Note Signed Patient: Melissa Dubose MR#: [id number] : 1960 Acct:[id number] Age/Sex: 63 / F Adm Date: 4 Loc: Room: 0V3074-7 Type: ADM IN Attending Dr: Winter Norris [...] Patient had bypass surgery in 2013 at [facility], routinely follows with Dr. Parks. She presents with atrial fibrillation and notably [...] in LV function specifically evaluate graft and seneca-cayuga and coronary anatomy for treatable targets. Review of Systems Review of Systems All other systems reviewed & are negative unless noted below or in HPI Constitutional Constitutional: Reports as per HPI, Reports fatigue and Reports weakness Cardiovascular Cardiovascular: Reports chest pain at rest, Reports dyspnea and Reports orthopnea Respiratory Respiratory: Reports as per HPI [facility] Medical History Myocardial infarction Hypertension Diabetes Surgical History History of back surgery Hx of CABG 3 vessel at [facility] Family History Mother Diabetes Paternal Grandfather [...] Lymph # (Auto) 0.6 L (1.00-4.8) x10E3/uL [place] # (Auto) 0.6 (0.0-0.8) x10E3/uL Eos # [...] bypass graft (4) Coronary artery disease involving seneca-cayuga coronary artery of seneca-cayuga heart without angina pectoris: Code(s): I25.10 - Atherosclerotic heart disease of seneca-cayuga coronary artery without angina pectoris (5) Myocardial injury: Code(s): I5A - Non-ischemic myocardial injury (non-traumatic) Plan Proceed with left heart catheterization plus minus revascularization Documented By: Hernan Siddiqi DO 11/22/23 1417 Signed By: <Electronically signed by Hernan Siddiqi DO> 11/22/23 1425 [facility] Work Phone: 1(144) 913-955103-15-2024 [facility] Progress note Author Winter Norris [facility] November 22, 2023 10:05am Note Date/Time November 22, 2023 10: 01am [facility] [address] [place] [address] Hospitalist Progress Note Signed Patient: Melissa Dubose MR#: [id number] : 1960 Acct:[id number] Age/Sex: 63 / F Adm Date: 4 Loc: Room: [address] [place] [address] Type: ADM IN Attending Dr: Winter Norris [...] 86% on room air upon arrival to [facility] emergency room, 4 L nasal [...] <Electronically signed by Winter Norris MD> 11/22/23 2[address] [facility] Work Phone: [phone]) 236-712303-14-2024 Consult note Author Justine Jacobo [facility] November 21, 2023 4:39pm Note Date/Time November 21, 2023 3:0 2pm [facility] [address] [place] [address] Cardiology Consult Note Signed Patient: Melissa Dubose MR#: [id number] : 1960 Acct:[id number] Age/Sex: 63 / F Adm Date: 4 Loc: Room: [address] [place] [address] Type: ADM IN Attending Dr: Winter Norris MD Copies to: MD Justine West MD Mazhar Rahman, MD~ Cardiology HPI History of Present Illness Consult Date: 11/21/23 HPI: Ms. Dubose is a 63 year old female with the PMH below ike presented to the [facility] ER for chest pain, SOB, cough and [...] easy bleeding, ecchymosis. Skin: Denies rashes, pruritus. [facility] Medical History Myocardial infarction Hypertension Diabetes Surgical History History of back surgery Hx of CABG 3 vessel at [facility] Family History Mother Diabetes Paternal Grandfather [...] Lymph # (Auto) 0.3 L (1.00-4.8) x10E3/uL [place] # (Auto) 0.1 (0.0-0.8) x10E3/uL Eos # [...] bypass graft (4) Coronary artery disease involving seneca-cayuga coronary artery of seneca-cayuga heart without angina pectoris: Code(s): I25.10 - Atherosclerotic heart disease of seneca-cayuga coronary artery without angina pectoris (5) Myocardial [...] <Electronically signed by Justine Jacobo MD> 11/21/23 8186 [facility] Work Phone: 1(322) 324-429503-14-2024 Progress note Author Winter Norris [facility] November 21, 2023 12:12pm Note Date/Time November 21, 2023 12: 09pm [facility] [address] [place] [address] Event Note Signed Patient: Melissa Dubose MR#: [id number] : 1960 Acct:[id number] Age/Sex: 63 / F Adm Date: 4 Loc: Room: [address] [place] [address] Type: ADM IN Attending Dr: Winter Norris [...] signed by Winter Norris MD> 11/21/23 1212 [facility] Work Phone: 1([phone]) 753-979003-14-2024 History and physical note Author Isaac Greenwood [facility] November 21, 2023 5:31am Note Date/Time November 21, 2023 3:0 1am [facility] [address] [place] [address] Hospitalist H&P Signed Patient: Melissa Dubose MR#: [id number] : 1960 Acct:[id number] Age/Sex: 63 / F Adm Date: 4 Loc: Room: [address] [place] [address] Type: ADM IN Attending Dr: Isaac Greenwood DO Copies to: MD Karen West, PICKER TENDER HELPERMarek [place], DO~ HPI DATE OF EXAMINATION: 11/21/23 CHIEF COMPLAINT: Chest pain, sob, N/V/D, fever, cough HISTORY OF PRESENT ILLNESS: Ms. Dubose is a 63-year-old female that presented to the [facility] emergency room for complaints of [...] CABG-3 vessel, T2DM, HTN. EKG at [facility] emergency room shows A-fib with [...] 125 Solu-Medrol, Zofran Tamiflu. She follows with [facility] cardiology however they had no beds available. She agreed to transfer to the closest facility which is [facility]. Patient was transferred here to the progressive floor under the care of hospitalist team. Review of Systems Review of Systems Review of systems: A 10 point review of systems was obtained, negative unless noted in the HPI or below. [facility] Medical History (Updated 11/21/23 @ 03:40 by Karen Mays APRN) Myocardial infarction Hypertension Diabetes Surgical History (Updated 11/21/23 @ 03:31 by Karen Mays APRN) History of back surgery Hx of CABG 3 vessel at [facility] Family History (Updated 11/21/23 @ 03:31 [...] 86% on room air upon arrival to [facility] emergency room, 4 L nasal [...] signed by Isaac Greenwood DO> 11/21/23 0531 [facility] Work Phone: Evaluation + Plan note No data available for this section [facility] evaluation + Plan note Future Appointments Appointment Date:09/24/2024 01:45:00 PM Scheduled Provider: Location:[facility] Appointment Type:Surgery FT [place] Evaluation note* Diagnosis Onset Date Resolution Status Acute hypoxic respiratory failure acute Atrial fibrillation acute Chest pain acute [id number] acute Diabetes acute Headache acute HFrEF (heart failure with reduced ejection fraction) acute Hypertension acute Influenza A acute Myocardial injury acute NSTEMI (non-ST elevated myocardial infarction) acute S/P CABG (coronary artery bypass graft) acute Shortness of breath acute [facility] Work Phone: Hospital Discharge instructions No data available for this section [place] Progress note No data available for this section [facility] Summary Purpose Family History No Family History Records Found Relationship Condition Age at Onset Recorded Date/T carroll Not Specified Diabetes mellitus Unknown Not Specified Malignant neoplasm of pancreas Unknown daughter Diabetes mellitus Unknown Advance Directives No Advanced Directives Records Found Advance Directive Response Recorded Date/ Time Advance Directives No November 20 1:29am Chief Complaint and Reason for Visit Chief Complaint New onset Afib, NSte mi New onset Afib, NStemi New onset Afib, NStemi Reason for Visit Acute hypoxic respir atory failure Atrial fibrillation Chest pain [id number] Diabetes Headache HFrEF (heart failure with reduced ejection fraction) Hypertension Influenza A Myocardial injury NSTEMI (non-ST elevated myocardial infarction) S/P CABG (coronary artery bypass graft) Shortness of breath Additional Source Comments INFORMATION SOURCE (unrecogn ized section and content) DATE CREATED AUTHOR 03/05/[address] [facility] DATE CREATED AUTHOR AUTHOR'S ORGANIZ ATION 01/24/2023 [facility] DATE CREATED AUTHOR AUTHOR'S ORGANIZ ATION 12/18/2023 [facility] DATE CREATED AUTHOR AUTHOR'S ORGANIZ ATION 06/04/2024 [facility] DATE CREATED AUTHOR AUTHOR'S ORGANIZ ATION 08/25/2024 [facility] DATE CREATED AUTHOR AUTHOR'S ORGANIZ ATION 09/22/2024 [facility] DATE CREATED AUTHOR AUTHOR'S ORGANIZ ATION 09/27/2024 [facility] DATE CREATED AUTHOR AUTHOR'S ORGANIZ ATION 09/29/2024 [facility] DATE CREATED AUTHOR AUTHOR'S ORGANIZ ATION 10/01/2024 [facility] DATE CREATED AUTHOR AUTHOR'S ORGANIZ ATION 02/13/2025 [facility] Care Teams (unrecognized sec tion and content) Team Status: Active Member Role Status Dates Madison Magana MD Primary Care Provider Active Team Status: Inactive Member Role Status Dates Madison Magana MD Primary Care Provider Active Start: November 21, 2023 End: November 25, 2023 Isaac Greenwood DO Admit Provider Active Start: November 21, 2023 End: November 25, 2023 Johnny Bernal MD Attending Provider Active St art: November 21, 2023 End: November 25, 2023 Team Status: Active Member Role Status Dates Madison Maagna MD Primary Care Provider Active Start: November 21, 2023 Isaac Greenwood DO Admit Provider, Other Provider Act roberto Start: November 21, 2023 Karen Mays APRN Attending Provider Active S tart: November 21, 2023 Team Status: Active Member Role Status Dates Madison Magana MD Primary Care Provider Active Start: November 21, 2023 Isaac Greenwood DO Admit Provider Active Start: November 21, 2023 Winter Norris MD Other Provider Active Start: November 21, 2023 Jaimie Lopez RN Other Provider Active Star t: November 21, 2023 Zach Jones MD Other Provider Active Start: piyush 2023 Justnie Jacobo MD Attending Provider, Other Provider Active [...] BE BASED ON THE PRIMARY CLINICAL RECORDS. [facility] [employer] [facility]. provides no warranty or guarantee of the accuracy or completeness of information in this document.
--- NOTE | 2025-03-21 15:24 | ECG_ITS ---
[facility] Test Date: 2025-03-21 Pat Name: KAYLA HEATH Department: Room: - Gender: Female Treatment Supervisor: : 1960 Requested By: [id number] Order Number: [id number] Reading MD: CARIE LILLY Measurements Intervals [place] Rate: 88 P: 73 NC: 166 QRS: 107 QRSD: 126 T: -37 QT: 384 QTc: 429 Interpretive Statements 1100 Sinus rhythm 2450 Right bundle branch block Septal infarct age indeterminate cannot be ruled out 4364 Twave abnormality, possible anterolateral ischemia 4664 Twave abnormality, possible inferior ischemia 7100 Abnormal right axis deviation 9150 abnormal ECG Compared to ECG 12/02/2023 12:14:31 Right bundle-branch block now present Possible ischemia now present Right-axis deviation now present Atrial fibrillation no longer present Electronically Signed On 03-23-2025 16:34:43 EDT by CARIE LILLY
--- NOTE | 2025-03-21 15:24 | XR_ITS ---
[facility] [place] [id number] Patient Name: KAYLA HEATH MRN: [id number] date: 1960 Sex: F Assigned Patient Location: ED.MAIN Current Patient Location: ED.MAIN Accession/Order Number: [id number] Exam Date: 03/21/2025 16:08 Report Date: 03/21/2025 16:09 At the request of: ARIANNA AMANDA MD Procedure: XR chest 1V XR chest 1V 03/21/2025 4:05 PM SIGNS AND SYMPTOMS: Shortness breath, cough, chest pain PROTOCOL: Frontal radiograph of the chest COMPARISON: 11/20/2023 FINDINGS: The trachea is midline. Atherosclerotic changes are noted in the thoracic aorta. Sternotomy wires overlie the mediastinum. The heart and mediastinal structures are within normal limits. The lung parenchyma is clear. The bony thorax is intact. XR/XR chest 1V IMPRESSION: No acute cardiopulmonary pathology. Impression dictated by: Lowell Oliver M.D. 03/21/2025 4:09 PM Dictation Location[facility] Electronically authenticated by: [id number] Y Date: 03/21/2025 16:09
[2025-03-21 15:43] LABS: Hematocrit 48.8 % (36.0-48.0); Hemoglobin 15.8 g/dL (12.0-16.0); Immature Granulocytes Abs Auto 0.04 10^3/uL (0.00-0.03); Immature Granulocytes Pct Auto 0.3 % (0.0-0.5); Lymphocytes Absolute Auto 1.9 10^3/uL (1.2-3.8); Mean Corpuscular HGB Conc 32.4 g/dL (29.9-35.2); Mean Corpuscular Hemoglobin 31.5 pg (26.7-34.0); Mean Corpuscular Volume 97.2 fL (81.0-99.0); Platelet Count 311 10^3/uL (150-450); Red Blood Count 5.02 10^6/uL (4.20-5.40); White Blood Count 12.6 10^3/uL (4.0-11.0)
[2025-03-21] MEDS: IPRATROPIUM/ALBUTEROL SULFATE 3 ML AMPUL.NEB IH ×2 (15:44→17:40)
--- NOTE | 2025-03-21 15:47 | ED.SOB1 ---
HPI - SOB/Dyspnea General Chief Complaint: Shortness of Breath/Dyspnea Stated Complaint: difficulty breathing Time Seen by Provider: 03/21/25 15:24 Source: patient Mode of arrival: Wheelchair History of Present Illness HPI Narrative: The patient is found to be hypoxemic on arrival she is saturating at the lower 80s at room air, the patient have a history of smoking cigarettes although she does not have any history of COPD and she is recalling a history of shortness of breath as well as headache and diarrhea for the last week that got worse over the last few days, patient have no chest pain or any abdominal pain she also has some nausea over the last week and she has not been able to eat The patient had no diarrhea or constipation over the last few days and she have no abdominal pain no chest pain Related Data Home Medications ?Medication ?Instructions ?Recorded ?Confirmed ezetimibe 10 mg tablet 10 mg PO DAILY 11/20/23 12/02/23 pantoprazole 40 mg tablet,delayed 40 mg PO DAILY 11/20/23 12/02/23 release apixaban 5 mg tablet (Eliquis) 5 mg PO BID 11/27/23 12/02/23 atorvastatin 40 mg tablet 40 mg PO .QHS 11/27/23 12/02/23 empagliflozin 10 mg tablet 10 mg PO DAILY 11/27/23 12/02/23 (Jardiance) furosemide 20 mg tablet 20 mg PO QAM 11/27/23 12/02/23 isosorbide mononitrate 60 mg 90 mg PO .QD 12/02/23 12/02/23 tablet,extended release 24 hr Previous Rx's ?Medication ?Instructions ?Recorded metoprolol tartrate 25 mg tablet 25 mg PO BID #60 tabs 11/29/23 doxycycline monohydrate 100 mg 100 mg PO BID 7 days #14 caps 12/05/23 capsule sacubitril 49 mg-valsartan 51 mg 1 tab PO BID #60 tabs 12/05/23 tablet (Entresto) vancomycin 125 mg capsule 125 mg PO Q6H 7 days #28 caps 12/05/23 Allergies Allergy/AdvReac Type Severity Reaction Status Date / Time No Known Drug Allergies Allergy Verified 11/20/23 21:54 Review of Systems ROS Status of ROS 10 or more systems reviewed and unremarkable except as noted in history and below [facility] Medical History (Updated 03/21/25 @ 18:42 by Marbella aPula MD) Hypotension ?I95.9 - Hypotension, unspecified (ICD-10) GI bleed ?K92.2 - Gastrointestinal hemorrhage, unspecified (ICD-10) Coronary artery disease ?I25.10 - Atherosclerotic heart disease of [place] coronary artery without angina pectoris (ICD-10) Acute HFrEF (heart failure with reduced ejection fraction) ?I50.21 - Acute systolic (congestive) heart failure (ICD-10) Leukocytosis ?D72.829 - Elevated white blood cell count, unspecified (ICD-10) Acute lower GI bleeding ?K92.2 - Gastrointestinal hemorrhage, unspecified (ICD-10) Abdominal pain ?R10.9 - Unspecified abdominal pain (ICD-10) Colitis ?K52.9 - Noninfective gastroenteritis and colitis, unspecified (ICD-10) Influenza A ?J10.1 - Influenza due to other identified influenza virus with other respiratory manifestations (ICD-10) Atrial fibrillation, new onset ?I48.91 - Unspecified atrial fibrillation (ICD-10) Heart attack ?I21.9 - Acute myocardial infarction, unspecified (ICD-10) Diabetes mellitus ?E11.9 - Type 2 diabetes mellitus without complications (ICD-10) Hypertension ?I10 - Essential (primary) hypertension (ICD-10) Surgical History (Updated 12/02/23 @ 15:02 by Misty Mays) Previous back surgery ?Z98.890 - Other specified postprocedural states (ICD-10) delivery delivered ?O82 - Encounter for delivery without indication (ICD-10) H/O left heart catheterization by ventricular puncture ?Z98.890 - Other specified postprocedural states (ICD-10) S/P triple vessel bypass ?Z95.1 - Presence of aortocoronary bypass graft (ICD-10) Family History (Updated 12/02/23 @ 15:03 by Misty Mays) Sister Family history of stroke Grandfather Family history of myocardial infarction Family history of cancer Grandmother Family history of myocardial infarction Mother Family history of hypertension Family history of diabetes mellitus Father Family history of COPD (chronic obstructive pulmonary disease) Social History (Updated 12/02/23 @ 15:04 by Misty Mays) Within the past year, how often did you have a drink containing alcohol: never Within the past year, how often did you have six or more drinks on one occasion: never Score interpretation: A score less than 3 is consistent with normal alcohol consumption. Smoking status: Former smoker Non-prescribed substance use: denies use Previous occupational history: disability Highest level of school completed/degree received: some college, no degree Are you now , , , , never or living with a partner: In a typical week, how many times do you talk on the telephone with family, friends, or neighbors: 3 or more times per week How often do you get together with friends or relatives: 3 or more times per week How often do you attend yarsani or mormon services: never Do you belong to any clubs or organizations such as yarsani groups unions, fraternal or athletic groups, or school groups: no Total score: 1 Score interpretation: A score of less than or equal to 1 indicates the most socially isolated. Little interest or pleasure in doing things: not at all Feeling down, depressed, or hopeless: not at all Feel stressed/tense/nervous/anxious/difficulty sleeping: not at all Do you think of yourself as: straight/heterosexual Gender Identity: female Exam Narrative Exam Narrative: Nurses notes and vital signs reviewed and patient is not hypoxic. General: In distress but not using accessory muscles and the patient appeared hypoxemic Skin: Warm, dry, no pallor noted. No rash. Head: Normocephalic, atraumatic. Neck: Supple, non-tender. Eye: Pupils are equal, round and EOMI. No scleral icterus. Ears, Nose, Mouth, and Throat: TM are clear, no nasal mucosal hypertrophy. Oral mucosa is moist, no posterior oropharynx erythema, uvula is mid-line Cardiovascular: Regular Rate and Rhythm without murmur, gallop or rub. Respiratory: The patient have bilateral expiratory wheeze with a distant breathing sounds and rhonchi in both lung [place] Back: No midline thoracic or lumbar vertebral tenderness. No CVA tenderness Musculoskeletal: normal ROM, no calf or popliteal tenderness, no lower extremity edema/swelling GI: Abdomen is soft, non-distended. Normal bowel sounds. No masses appreciated. No tenderness to palpation. No rebound, guarding, or rigidity noted. Neurological: A&O x4. No cranial nerve dysfunction observed. Constitutional Vital Signs, click to edit/add: Last Vital Signs Temp 97.9 F 03/21/25 15:17 Pulse 82 03/21/25 19:00 Resp 18 03/21/25 19:00 BP 109/64 03/21/25 19:00 Pulse Ox 96 03/21/25 18:50 O2 Del Method Nasal Cannula 03/21/25 15:45 O2 Flow Rate 5 03/21/25 15:45 FiO2 100 03/21/25 17:26 Course Vital Signs Vital signs: Vital Signs Temperature 97.9 F 03/21/25 15:17 Pulse Rate 89 03/21/25 15:17 Respiratory Rate 26 H 03/21/25 15:17 Blood Pressure 112/77 03/21/25 15:17 Pulse Oximetry 82 L 03/21/25 15:17 Oxygen Delivery Method Room Air 03/21/25 15:17 Temperature 97.9 F 03/21/25 15:17 Pulse Rate 82 03/21/25 19:00 Respiratory Rate 18 03/21/25 19:00 Blood Pressure 109/64 03/21/25 19:00 Pulse Oximetry 96 03/21/25 18:50 Oxygen Delivery Method Nasal Cannula 03/21/25 15:45 Oxygen Delivery Flow Rate 5 03/21/25 15:45 Fraction of Inspired Oxygen 100 03/21/25 17:26 MDM - SOB/Dyspnea MDM Narrative Medical decision making narrative: The patient EKG on arrival showing heart rate of [address] elevation or depression it was sinus but there was T wave inversion in multiple leads including 2 and 3 and aVF in addition to lead V1 to V6 The patient chest x-ray showed no acute pathology CBC shows some mild leukocytosis of 12 and the patient chemistry showing no significant acute kidney injury with creatinine 1.3 The patient it was noted that she is hypoxemic although she is not using accessory muscles her presentation was highly suspicious for possibly a PE The patient although her D-dimer was negative I still sent her for CT angio to make sure there is underlying pathology that is causing the patient to be hypoxemic especially with the fact that the chest x-ray showed no acute pathology The patient initially was started on Vapotherm she was barely saturating at 85% that she was started on CPAP machine after which she was saturating better at 93% and 94% The patient was sent to CT angio chest for PE diagnosis and also had a CT head ordered Lab Data Labs: Lab Results 03/21/25 03/21/25 03/21/25 Range/Units 15:30 16:01 17:04 WBC 12.6 H (4.0-11.0) 10^3/uL RBC 5.02 (4.20-5.40) 10^6/uL Hgb 15.8 (12.0-16.0) g/dL Hct 48.8 H (36.0-48.0) % MCV 97.2 (81.0-99.0) fL MCH 31.5 (26.7-34.0) pg MCHC 32.4 (29.9-35.2) g/dL RDW 13.2 (11.0-15.0) % Plt Count 311 (150-450) 10^3/uL MPV 9.3 L (9.5-13.5) fL Neut % (Auto) 74.7 (43.0-75.0) % Lymph % (Auto) 15.0 L (20.5-60.0) % [place] % (Auto) 6.7 (1.7-12.0) % Eos % (Auto) 2.6 (0.9-7.0) % Baso % (Auto) 0.7 (0.2-2.0) % Neut # (Auto) 9.4 H (1.4-6.5) 10^3/uL Lymph # (Auto) 1.9 (1.2-3.8) 10^3/uL [place] # (Auto) 0.8 (0.3-0.8) 10^3/uL Eos # (Auto) 0.3 (0.0-0.7) 10^3/uL Baso # (Auto) 0.1 (0.0-0.1) 10^3/uL Abs Immat Gran (auto) 0.04 H (0.00-0.03) 10^3/uL Imm/Tot Granulo (auto) 0.3 (0.0-0.5) % PT 11.0 (9.0-11.6) sec INR 1.04 D-Dimer 0.50 (<=0.59) mg/L FEU Puncture Site R. brach ABG pH 7.381 (7.350-7.450) ABG pCO2 35.6 (35.0-45.0) mmHg ABG pO2 45.3 L* (80.0-100.0) mmHg ABG HCO3 21.1 L (22.0-26.0) mmol/L ABG O2 Saturation 82.6 % ABG Base Excess -4.0 L (-2.0-2.0) mmol/L Gavin Test Positive (POSITIVE) O2 Liters/Min 40 FiO2 100 % Sodium 145 (136-145) mmol/L Potassium 4.1 (3.5-5.1) mmol/L Chloride 107 (98-107) mmol/L Carbon Dioxide 23.7 (21.0-32.0) mmol/L Anion Gap 18.4 BUN 18.0 (7.0-18.0) mg/dL Creatinine 1.18 H (0.55-1.02) mg/dL Est GFR ( Amer) 56 L (>=60 mL/min/1.73m^2) Est GFR (Non-Af Amer) 46 L (>=60 mL/min/1.73m^2) BUN/Creatinine Ratio 15.3 Glucose 187 H (74-106) mg/dL Lactate 2.6 H* (0.4-2.0) mmol/L Calcium 10.0 (8.5-10.1) mg/dL Magnesium 1.6 L (1.8-2.4) mg/dL Total Bilirubin 0.5 (0.2-1.0) mg/dL AST 8 L (15-37) U/L ALT 15 (14-59) U/L Alkaline Phosphatase 89 (46-116) U/L Troponin I High Sens 8.0 (4.0-51.3) pg/mL Total Protein 7.0 (6.4-8.2) g/dL Albumin 3.1 L (3.4-5.0) g/dL Globulin 3.9 g/dL Albumin/Globulin Ratio 0.8 POC Glucose 165 H (74-106) mg/dL Discharge Plan Discharge Chief Complaint: Shortness of Breath/Dyspnea Clinical Impression: Hypoxia Prescriptions / Home Meds: No Action furosemide 20 mg tablet 20 mg PO QAM Eliquis 5 mg tablet 5 mg PO BID Jardiance 10 mg tablet 10 mg PO DAILY atorvastatin 40 mg tablet 40 mg PO .QHS metoprolol tartrate 25 mg Tablet 25 mg PO BID Qty: 60 11RF ezetimibe 10 mg tablet 10 mg PO DAILY pantoprazole 40 mg tablet,delayed release (DR/EC) 40 mg PO DAILY isosorbide mononitrate 60 mg tablet extended release 24 hr 90 mg PO .QD Rx Instructions: CURRENT MED PER DR GRIMES'S OFFICE 12/02/23 doxycycline monohydrate 100 mg capsule 100 mg PO BID 7 Days Qty: 14 0RF Entresto 49-51 mg tablet 1 tab PO BID Qty: 60 11RF vancomycin 125 mg capsule 125 mg PO Q6H 7 Days Qty: 28 0RF Print Language: Congolese Referrals: Alejandro Mccormack MD [Primary Care Provider, Family Practice] - 1 week
[2025-03-21] MEDS: MORPHINE SULFATE 4 MG/ML VIAL IV ×2 (15:48→20:36)
[2025-03-21 15:54] LABS: INR 1.04; Prothrombin Time 11.0 sec (9.0-11.6)
[2025-03-21 16:05] LABS: Alanine Aminotransferase 15 U/L (14-59); Albumin Globulin Ratio 0.8; Albumin Level 3.1 g/dL (3.4-5.0); Alkaline Phosphatase 89 U/L (46-116); Anion Gap 18.4; Aspartate Amino Transferase 8 U/L (15-37); Blood Urea Nitrogen 18.0 mg/dL (7.0-18.0); Calcium 10.0 mg/dL (8.5-10.1); Carbon Dioxide 23.7 mmol/L (21.0-32.0); Chloride 107 mmol/L (98-107); Estimated GFR (African America 56 (>=60 mL/min/1.73m^2); Estimated GFR (Non-African Ame 46 (>=60 mL/min/1.73m^2); Globulin 3.9 g/dL; Glucose 187 mg/dL (74-106); Magnesium 1.6 mg/dL (1.8-2.4); Potassium 4.1 mmol/L (3.5-5.1); Sodium 145 mmol/L (136-145); Total Protein 7.0 g/dL (6.4-8.2)
[2025-03-21 16:14] LABS: Lactate/Lactic Acid 2.6 mmol/L (0.4-2.0)
[2025-03-21] MEDS: METHYLPREDNISOLONE SOD SUCC PF 125 MG/2 ML VIAL IVP (16:20)
[2025-03-21] MEDS: 0.9 % SODIUM CHLORIDE 1,000 ML 1000 ML IV (16:21)
[2025-03-21 17:19] LABS: ABG PCO2 35.6 mmHg (35.0-45.0)
[2025-03-21 17:20] LABS: Allen Test POSITIVE (POSITIVE); HCO3 ABG 21.1 mmol/L (22.0-26.0); Liters per Minute 40; O2 Mode VAPOTHERM; Oxygen Saturation ABG 82.6 %
[2025-03-21 17:21] LABS: Puncture Site R. BRACH
[2025-03-21 17:23] LABS: PO2 ABG 45.3 mmHg (80.0-100.0)
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
[2025-03-21] MEDS: MAGNESIUM SULFATE IN WATER 2 GM/50 ML PREMIX IV (20:25)
--- NOTE | 2025-03-21 20:46 | PC.NURSE ---
Patient remains awake and alert. Any attempt to sit up in bed and patient feels SOB, and pulse ox. drops to mid 70%. Quickly recovers upon laying back in semi fowlers position and pulse ox. quickly goes up to 90's. Remains on bipap at 100% oxygen.
[2025-03-21] MEDS: AZITHROMYCIN 500 MG in 0.9 % SODIUM CHLORIDE 250 ML 250 MG IV (21:01)
--- NOTE | 2025-03-21 23:25 | PC.NURSE ---
Pulse Ox. 98% with Bipap at 100% Fi02 while laying in semifowlers. Patient attempts to reposition and sit up and pulse ox. immediately drops to 74%, upon laying back pulse os. increases to 94%.
--- NOTE | 2025-03-21 23:29 | PC.NURSE ---
Dr. Alejandro speaks with pulmonology at , patient not surgical candidate and awaiting return call from for possible admission to Medical ICU.
[2025-03-22] VITALS (17 sets, daily range): BP systolic 105–123; BP diastolic 59–80; PULSE 80–94; RESP 12; O2SAT 90–99
[2025-03-22] MEDS: MORPHINE SULFATE 4 MG/ML VIAL IV ×2 (00:02→01:37)
--- NOTE | 2025-03-22 00:03 | PC.NURSE ---
Patient accepted at to medical ICU under Dr. Ahmadi. No bed availability at this time, awaiting bed assignment.
--- NOTE | 2025-03-22 00:14 | PC.NURSE ---
Per instruction from physician at [place] [address] down to 80% at this time, pulse ox. 97%.
--- NOTE | 2025-03-22 01:16 | PC.NURSE ---
[employer] flight arrives at this time.
--- NOTE | 2025-03-22 01:25 | PC.NURSE ---
[employer] flight remains in room at this time, adjusting Bipap settings at this time to see if able to tranport patient with oxygen needs. Unable to safely do so. mobile ground crew in route at this time.
--- NOTE | 2025-03-22 01:41 | PC.NURSE ---
[employer] flight leaves at this time, [employer] ICU on way. Bipap settings at 16 with Fi02 at 90%. Pulse ox. 99% at this time.
--- NOTE | 2025-03-22 02:53 | PC.NURSE ---
Report called to CHARLES Rm at [facility]. [employer] [facility] in room at this time.
[2025-03-22 03:11] LABS: ABG PCO2 37.7 mmHg (35.0-45.0); Allen Test POSITIVE (POSITIVE); BIPAP Pressure 16/12; HCO3 ABG 20.6 mmol/L (22.0-26.0); O2 Mode BIPAP; Oxygen Saturation ABG 96.7 %; PO2 ABG 79.8 mmHg (80.0-100.0); Puncture Site L BRACHIAL
--- NOTE | 2025-03-22 03:45 | XR_ITS ---
[address] [address] Patient Name: KAYLA HEATH MRN: [id number] date: 1960 Sex: F Assigned Patient Location: ER Current Patient Location: Accession/Order Number: [id number] Exam Date: 03/22/2025 09:11 Report Date: 03/22/2025 09:14 At the request of: TRISTAN PUCKETT MD Procedure: XR chest 1V PORTABLE AP RECUMBENT CHEST 0344 hours CLINICAL HISTORY: post intubation COMPARISON: Plain film and CT 03/21/2025 Evaluation is limited by positioning and technique. Sternotomy wires are visualized. There is a new endotracheal tube approximately 7 cm above the melvin. The heart and lungs cannot be adequately evaluated. XR/XR chest 1V IMPRESSION: LIMITED STUDY. ENDOTRACHEAL TUBE PLACEMENT, DESCRIBED. Impression dictated by: Thalia Villalobos M.D. 03/22/2025 9:14 AM Dictation Location: [place] [address] Electronically authenticated by: [id number] Y Date: 03/22/2025 09:14
[2025-03-22] MEDS: PROPOFOL 1,000 MG/100 ML VIAL 3.13 MG IV (03:46)
== END 2025-03-22 04:08 | disposition short-term general hospital (02) ==
PROVIDERS: Emergency Medicine; Emergency Provider Emergency Medicine; PCP Family Medicine
DX: J96.01 Acute respiratory failure with hypoxia (principal); R91.8 Other nonspecific abnormal finding of lung field; R51.9 Headache, unspecified; R07.9 Chest pain, unspecified; Z79.01 Long term (current) use of anticoagulants; Z95.1 Presence of aortocoronary bypass graft; Z87.891 Personal history of nicotine dependence
CPT/HCPCS: 36415; 36600; 51701; 51702; 70450; 71045; 71275; 80053; 82805; 83605; 83735; 84484; 85025; 85378; 85610; 93005; 94640; 94660; 94799; 96361; 96365; 96367; 96368; 96375; 96376; 99291; J0456; J0696; J2270; J2405; J2704; J2919; J3475; Q9967

== ENCOUNTER 2025-04-28 16:34 | Inpatient (IN) | payer MEDICARE, SELFPAY ==
--- OUTSIDE RECORDS SUMMARY | 2025-03-22 08:41 | XMS_ITS ---
Author Organization The [facility] in [place] Address [address] [place] [address] Care Team Providers Care Executive Chef Name Role Phone Raul Mccormack Primary Care Provider [phone] REASON FOR VISIT Transferred to - Encounters Encounter Location Date Provider Diagnosis [facility] [address] [place] [address] 03/22/2025 Raul Mccormack Plan Of Treatment No Information Progress Notes * Melissa HEATH DDOB: 2 (64 yo F)Acc No.[id number]:03/22/2025 Patient: Zhanna Melissa ESCALONA :1960 A ge:64 Y S ex:Female Address:[address] [place], [address] * true * Date: Generated for Printi ng/Faxing/eTransmitting on: 0 04/28/2025 09:46 PM EDT
[2025-04-28] VITALS (35 sets, daily range): BP systolic 73–109; BP diastolic 48–74; PULSE 80–107; TEMP 36.4–36.9; O2SAT 90–98; BMI 31.7; BMI 32.3
--- OUTSIDE RECORDS SUMMARY | 2025-04-28 11:45 | XMS_ITS ---
Author Organization The [facility] in [place] Address [address] [place] [address] Care Team Providers Care L Tacker Name Role Phone Raul Mccormack Primary Care Provider Allergies No Known Allergies REASON FOR VISIT Needs order and neb machine, Lung Cancer, No Walk Test can be completed until Saturday, Patient can'tdo tomorrow has treatment, No Oxygen at home Medications Medication SIG (Take, Route, Frequency, Duration) Notes Start Date End Date Status predniSONE 20 MG 2 tablets Orally Onc e a day for 5 days 12/03/2024 Active Spironolactone 25 MG 1/2 tablet Orally daily Active tiZANidine HCl 4 MG take 2 tablet by russ th at bedtime for 30 days Active Tylenol 325 MG 1 capsule as needed Orally every 6 hrs Active Zetia 10 MG 1 tablet Orally Once a day for 30 days Active Lidocaine 5 % 1 patch remove after 12 hours Externally Once a day 12/12/2023 Active metFORMIN HCl 500 MG 1 tablet with a edison l Orally bid for 30 days 07/29/2024 Active Metoprolol Succinate 50 MG 1 capsule Ora lly Once a day 01/02/2024 Active Pantoprazole Sodium 40 MG 1 tablet Orall y Once a day for 30 days 03/28/2023 Active Januvia 100 MG 1 tablet Orally Once a day for 30 days 07/29/2024 Active Eliquis 5 MG 1 tablet Orally Twic e a day Active Invokana 100 mg TAKE 1 TABLET BY RUSS TH BEFORE first meal OF the day for 30 days Active Entresto 97-103 MG 1 tablet Orally Twic e a day Active hydrOXYzine HCl 25 MG 1 Orally QID 02/04/2024 Active 1st Choice Lancets Thin - tid 07/29/2024 Active Blood Glucose Test - as directed In Vitro tid 07/11 Active Atorvastatin Calcium 40 MG 1 tablet Oral ly Once a day for 30 days 01/29/2024 Active Social History Tobacco Use: Social History Observation Description Date Details (start date - stop date) Former Smoker 09/09/1974 - 09/09/2018 Tobacco Use/Smoking Question Answer Notes Patient is a former smoker When did you start smoking? 09/09/1974 When did you stop smoking? 09/09/2018 AUDIT-C (Standard) Question Answer Notes Did you have a drink containing alcohol in the p ast year? No Points 0 Interpretation Negative Problems Problem Type SNOMED Code ICD Code Onset Dates Problem Status W/U Status Risk Notes Problem Lung cancer (687417364) Lung cancer (C34.90) Active confirmed Problem Dyspnea (R06.00) Active confirmed Vital Signs Height 70 in 04/28/2025 Blood pressure systolic 118 mm Hg 04/28/20 25 Blood pressure diastolic 82 mm Hg 025 Oximetry 89 % 04/28/2025 Encounters Encounter Location Date Provider Diagnosis [facility] [address] [place] [address] 04/28/2025 Raul Hoy Dyspnea R06.00 Assessments Encounter Date Diagnosis (ICD Code) Assessment Notes Treatment Notes Treatment Clinical Notes Section Notes 04/28/2025 Dyspnea (ICD-10 - R06.00) Air hunger - concerning for PE - Called ER with update -= squad to take to ER Plan Of Treatment Treatment Notes Assessment Notes Dyspnea Air hunger - concern ing for PE - Called ER with update -= squad to take to ER Progress Notes * Melissa DUBOSE DDOB: [birth year] (64 yo F)Acc No.[id number]:04/28/2025 UNLOCKED PROGRESS NOTE Progress Note Patient: Melissa JACOBO Provider: Celina Mccormack ([facility])MD :1960 A ge:64 Y S ex:Female Date:04/28/2025 Address:[address] [facility] Check In:03:43 PM ESTCheck O ut:04:35 PM EST Subjective: * Chief Complaints: * 1 . Needs order and neb machine. 2. Lung Cancer. 3. No Walk Test can be completed until Saturday, Patient can't do tomorrow has treatment. 4. No Oxygen at home. * HPI: G eneral: PANDEY - much worse dtoday = pain in upper back concerned with air hunger - dx PE? sending to Er. * ROS: E ENT: hearing changes d enies. v isual changes d enies.?non-healing mouth sores d enies. s wollen glands or neck lumps d enies. h oarseness d enies. s ore throat d enies. d ifficulty swallowing d enies. n ose bleeds d enies. n ralph congestion d enies. e ar ache d enies. e ar discharge?denies. r inging in ears d enies. l ight sensitivity d enies. e ye pain d enies. b lurring d enies. e ye irritation d enies. d ouble vision d enies.?vision loss d enies. G eneral/Constitutional: Sweats: D enies. F atigue d enies. S leep problems d enies. A norexia d enies. M alaise d enies. W eight loss d enies.?Fatigue or Weakness d enies. F ever or Chills d enies. M usculoskeletal: Joint pain d enies. J oint Fluid d enies. B ack pain d enies. K nee pain d enies. N naina pain d enies. J oint Stiffness d enies. M uscle cramps d enies. W eakness of muscles d enies. A rthritis d enies. M uscle aches d enies. P ain in shoulder(s) d enies. S wollen joints d enies. * Medical History: L apolonia cancer. * Surgical History: C ardiac Cath- Dr Siddiqi 11/22/2023, CABG , Cardioversion 01/2024. * Hospitalization/Major Diagno stic Procedure: C olitis and GI bleed 11/30. * Family History: F ather: alive. M other: alive. 1 daughter(s) . . SISTER-MS, MIGRAINE MOM- MIGRAINE FATHER-BRAIN TUMOR. * Social History: T obacco Use: T obacco Use/Smoking P atient is a f ormer smoker W hen did you start smoking? 0 09/09/1974 W hen did you stop smoking? 0 09/09/2018 D rug/Alcohol: A PETRONA-C (Standard) D id you have a drink containing alcohol in the past year? N o P oints 0 I nterpretation N egative * Medications: T aking 1st Choice Lancets Thin - Miscellaneous tid , Taking Atorvastatin Calcium 40 MG Tablet 1 tablet Orally Once a day , Taking Blood Glucose Test - Strip as directed In Vitro tid , Taking Eliquis(Apixaban) 5 MG Tablet 1 tablet Orally Twice a day , Taking Entresto(Sacubitril-Valsartan) 97-103 MG Tablet 1 tablet Orally Twice a day , Taking hydrOXYzine HCl 25 MG Tablet 1 Orally QID , Taking Invokana(Canagliflozin) 100 mg Tablet TAKE 1 TABLET BY MOUTH BEFORE first meal OF the day , Taking Januvia(SITagliptin Phosphate) 100 MG Tablet 1 tablet Orally Once a day , Taking Lidocaine 5 % Patch 1 patch remove after 12 hours Externally Once a day , Taking metFORMIN HCl 500 MG Tablet 1 tablet with a meal Orally bid , Taking Metoprolol Succinate 50 MG Capsule ER 24 Hour Sprinkle 1 capsule Orally Once a day , Taking Pantoprazole Sodium 40 MG Tablet Delayed Release 1 tablet Orally Once a day , Taking predniSONE 20 MG Tablet 2 tablets Orally Once a day , Taking Spironolactone 25 MG Tablet 1/2 tablet Orally daily , Taking tiZANidine HCl 4 MG Tablet take 2 tablet by mouth at bedtime , Taking Tylenol(Acetaminophen) 325 MG Capsule 1 capsule as needed Orally every 6 hrs , Taking Zetia(Ezetimibe) 10 MG Tablet 1 tablet Orally Once a day , Discontinued levoFLOXacin 500 MG Tablet 1 tablet Orally Once a day , Medication List reviewed and reconciled with the patient * Allergies: N .K.D.A. Objective: * Vitals: H t: 70 in, BP:118/82mm Hg, Oxygen sat %:89%, Ht-cm: 177.8 cm. * Examination: P hysical Exam: GENERAL: m od resp distress. HEAD: n ormocephalic/atraumatic. EYES: p upils equal, round and reactive to light, conjunctivae and sclerae normal. EARS: n o deformity or lesion of external ear, canals and TM appear normal bilaterally, TM's intact, not inflamed with normal light reflex, hearing grossly normal to conversational speech. NOSE: n o deformity, discharge, inflammation, or lesions.? MOUTH: m ucous membranes moist, normal oropharynx and posterior pharynx without lesions or exudates, tongue normal, dentition normal. NECK: n naina supple, no masses or palpable cervical nodes, trachea midline, thyroid without nodules, masses, tenderness, or enlargement. CHEST: n o chest wall deformity, no chest wall tenderness.? LUNGS: n ormal respiratory effort and clear to auscultation, no wheezes, rales, or rhonchi, good air exchange. CARDIO: r egular rate and rhythm, normal S1 and S2, nor murmur, rub, or gallop. PULSES: n ormal capillary refill. ABDOMEN: s oft, non-distended, non-tender, no masses. MUSCULOSKELETAL: n o deformity or scoliosis noted, normal range of motion, joints normal, no erythema, edema, effusion, or ecchymosis. EXTREMITY: n o clubbing, cyanosis, edema, or deformity with normal ROM in both upper and lower bilateral extremities. NEUROLOGIC: g rossly normal. SKIN: n o rashes, ulcerations, or suspicious lesions. LYMPH NODES: n o cervical adenopathy, nodes normal. MENTAL STATUS: a lert and oriented x3, normal mood and affect. Assessment: * Assessment: 1. D yspnea - R06.00 (Primary) Plan: * Treatment: * Procedure Codes: 3 079F DIAST BP 80-89 MM HG, 3074F SYST BP LT 130 MM HG * * Electronic signature of Raul Mccormack MD, [phone] on 04/28/2025 at 09:45 PM EDT Sign off status: Pending Visit Status: Gina DYSON (Check Out) * Provider: Celina Mccormack ([facility])MD Date: 04/28/2025 Generated for Addy mcleod/Laurent/eTransmitting on: 04/28/2025 09:45 PM EDT History and Physical Notes * HPI (History of Present Illness) Category Sub-Category Detail Notes Category Not es General PANDEY - much worse dtoday = pain in upper back concerned with air hunger - dx PE? sending to Er Examination Category Sub-Category Detail Notes Category Not es Physical Exam GENERAL: mod resp distress HEAD: normocephalic/atraum atic EYES: pupils equal, round and reactive to light, conjunctivae and sclerae normal EARS: no deformity or lesi on of external ear, canals and TM appear normal bilaterally, TM's intact, not inflamed with normal light reflex, hearing grossly normal to conversational speech NOSE: no deformity, discha rge, inflammation, or lesions MOUTH: mucous membranes june st, normal oropharynx and posterior pharynx without lesions or exudates, tongue normal, dentition normal NECK: neck supple, no mass es or palpable cervical nodes, trachea midline, thyroid without nodules, masses, tenderness, or enlargement CHEST: no chest wall deform ity, no chest wall tenderness LUNGS: normal respiratory e ffort and clear to auscultation, no wheezes, rales, or rhonchi, good air exchange CARDIO: regular rate and rhy thm, normal S1 and S2, nor murmur, rub, or gallop PULSES: normal capillary ref ill ABDOMEN: soft, non-distended, non-tender, no masses MUSCULOSKELETAL: no deformity or scol iosis noted, normal range of motion, joints normal, no erythema, edema, effusion, or ecchymosis EXTREMITY: no clubbing, cyanosi s, edema, or deformity with normal ROM in both upper and lower bilateral extremities NEUROLOGIC: grossly normal SKIN: no rashes, ulceratio ns, or suspicious lesions LYMPH NODES: no cervical adenopat hy, nodes normal MENTAL STATUS: alert and oriented x 3, normal mood and affect
--- OUTSIDE RECORDS SUMMARY | 2025-04-28 13:04 | XMS_ITS ---
Author Organization The [facility] in [place] Address [address] [place] [address] Care Team Providers Care Outside Sales Associate Name Role Phone Raul Mccormack Primary Care Provider [phone] Encounters Encounter Location Date Provider Diagnosis [facility] [address] [place] [address] 04/28/2025 Raul Mccormack Plan Of Treatment No Information Progress Notes * Melissa HEATH DDOB: 2 (64 yo F)Acc No.[id number]:04/28/2025 UNLOCKED PROGRESS NOTE Patient: Zhanna IQRAMelissa :1960 A ge:64 Y S ex:Female Address:[address] [place], [address] * * Date:
--- NOTE | 2025-04-28 16:41 | ECG_ITS ---
The [facility] Test Date: 2025-04-28 Pat Name: KAYLA HEATH Department: Room: - Gender: Female Environmental Health Nurse: : 1960 Requested By: [id number] Order Number: [id number] Reading MD: JUSTINE GRIMES M.D. Measurements Intervals Mobile Rate: 112 P: -27448 FL: -88875 QRS: 89 QRSD: 126 T: 16 QT: 356 QTc: 422 Interpretive Statements 70731 Atrial fibrillation with rapid ventricular response with aberrant conduction, or ventricular premature complexes 2450 Right bundle branch block 3434 Septal myocardial infarction, age undetermined 94673 Twave abnormality, possible inferior ischemia or digitalis effect 9150 abnormal ECG Compared to ECG 03/21/2025 15:27:56 Ventricular premature complex(es) now present Aberrant conduction of supraventricular beat(s) now present Sinus rhythm no longer present Right-axis deviation no longer present Myocardial infarct finding still present Possible ischemia still present Electronically Signed On 04-28-2025 18:47:06 EDT by JUSTINE GRIMES M.D.
--- NOTE | 2025-04-28 16:42 | XR_ITS ---
The [address] [address] Patient Name: KAYLA HEATH MRN: [id number] date: 1960 Sex: F Assigned Patient Location: ED.MAIN Current Patient Location: ED.MAIN Accession/Order Number: [id number] Exam Date: 04/28/2025 17:46 Report Date: 04/28/2025 17:52 At the request of: ARIANNA AMANDA MD Procedure: XR chest 1V Plain film chest Single view HISTORY: Shortness of breath. Low pulse ox COMPARISON: CT chest 03/21/2025 FINDINGS: SUPPORT DEVICES: None POSTSURGICAL CHANGES: Sternal wires unchanged HEART: Within normal limits PULMONARY SHOBHA: Within normal limits MEDIASTINUM: Superior right peritracheal mass seen with CT of the chest 03/21/2025 LUNGS AND PLEURA: No acute lung process, pleural effusion or pneumothorax identified. BONY STRUCTURES: Intact ADDITIONAL FINDINGS None XR/XR chest 1V IMPRESSION: Right suprahilar/right paratracheal mass. No acute cardiac pulmonary disease. Impression dictated by: Damion Pendleton M.D. 04/28/2025 5:52 PM Dictation Location[facility] Electronically authenticated by: [id number] Y Date: 04/28/2025 17:52
[2025-04-28] MEDS: 0.9 % SODIUM CHLORIDE 1,000 ML 1000 ML IV (17:15)
[2025-04-28 17:23] LABS: Hematocrit 38.6 % (36.0-48.0); Hemoglobin 12.7 g/dL (12.0-16.0); Immature Granulocytes Abs Auto 0.06 10^3/uL (0.00-0.03); Immature Granulocytes Pct Auto 0.5 % (0.0-0.5); Lymphocytes Absolute Auto 1.0 10^3/uL (1.2-3.8); Mean Corpuscular HGB Conc 32.9 g/dL (29.9-35.2); Mean Corpuscular Hemoglobin 31.4 pg (26.7-34.0); Mean Corpuscular Volume 95.3 fL (81.0-99.0); Platelet Count 237 10^3/uL (150-450); Red Blood Count 4.05 10^6/uL (4.20-5.40); White Blood Count 11.2 10^3/uL (4.0-11.0)
[2025-04-28 17:35] LABS: Magnesium 1.3 mg/dL (1.8-2.4)
[2025-04-28 17:42] LABS: Alanine Aminotransferase 28 U/L (14-59); Albumin Globulin Ratio 0.5; Albumin Level 2.2 g/dL (3.4-5.0); Alkaline Phosphatase 121 U/L (46-116); Anion Gap 12.5; Aspartate Amino Transferase 19 U/L (15-37); Blood Urea Nitrogen 22.0 mg/dL (7.0-18.0); Calcium 9.6 mg/dL (8.5-10.1); Carbon Dioxide 25.7 mmol/L (21.0-32.0); Chloride 103 mmol/L (98-107); Estimated GFR (African America 51 (>=60 mL/min/1.73m^2); Estimated GFR (Non-African Ame 42 (>=60 mL/min/1.73m^2); Globulin 4.3 g/dL; Glucose 151 mg/dL (74-106); Potassium 4.2 mmol/L (3.5-5.1); Sodium 137 mmol/L (136-145); Total Protein 6.5 g/dL (6.4-8.2)
[2025-04-28 17:51] LABS: INR 1.19; Prothrombin Time 12.4 sec (9.0-11.6)
--- NOTE | 2025-04-28 18:13 | CT_ITS ---
The [address] [address] Patient Name: KAYLA HEATH MRN: [id number] date: 1960 Sex: F Assigned Patient Location: ER Current Patient Location: ER Accession/Order Number: [id number] Exam Date: 04/28/2025 18:57 Report Date: 04/28/2025 19:09 At the request of: ARIANNA AMANDA MD Procedure: CT angio chest CTA Chest with PE protocol TECHNIQUE: Axial imaging with 2-D and 3-D reconstruction 100 cc of Omnipaque [address] exam was performed using one or more the following dose reduction techniques: Automated exposure control, adjustment of the MA and/or Kv according to patient size, or use of the iterative reconstruction technique. History: Shortness of breath. Low pulse ox COMPARISON: 03/21/2025 THYROID: Unremarkable TRACHEA AND BRONCHI: Patent Right mainstem bronchus stent. Patent trachea and bronchi. ESOPHAGUS: Unremarkable. HEART: Cardiomegaly PERICARDIAL EFFUSION: None CORONARY ARTERY CALCIFICATION: Present MEDIASTINUM: No adenopathy. No pneumoperitoneum. No mediastinal hematoma. Patent superior vena cava. Mild narrowing. PULMONARY SHOBHA: Redemonstration of right suprahilar mass with mediastinal extension. Extension into the right tibia paratracheal region. Adjacent compressive atelectasis of the right upper lobe. THORACIC AORTA Unremarkable PULMONARY EMBOLUS: None LUNG NODULE None LUNGS: Right upper lobe atelectasis adjacent to the mass. PLEURAL EFFUSION: Developing moderate right pleural effusion. PNEUMOTHORAX: No pneumothorax seen. CHEST WALL: No abnormality AXILLA: Unremarkable BONY STRUCTURES Intact UPPER ABDOMEN: 2 cm left adrenal lesion incompletely visualized. CT/CT angio chest IMPRESSION: No acute pulmonary embolus. Patent superior vena cava with mild narrowing. Redemonstration of right suprahilar mass with mediastinal extension. Adjacent atelectasis of the right upper lobe. Developing moderate right pleural effusion. Cardiomegaly. Seen with prior examination CT of the abdomen and pelvis 12/02/2023. Likely adenoma. Impression dictated by: Damion Pendleton M.D. 04/28/2025 7:09 PM Dictation Location: [facility] Electronically authenticated by: [id number] Y Date: 04/28/2025 19:09
[2025-04-28] MEDS: MAGNESIUM SULFATE IN WATER 2 GM/50 ML PREMIX IV (18:15)
[2025-04-28] MEDS: MORPHINE SULFATE 4 MG/ML VIAL IV ×2 (18:15→20:29)
--- NOTE | 2025-04-28 19:14 | ED.SOB1 ---
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 transferred to another facility where they placed a stent and she was discharged to a custodial where she was discharged from yesterday without oxygen, concerned that the patient is here that she does not have oxygen at home and she was sent to us by her primary care for that reason She was also found to be hypotensive and she mentioned that she has not been eating or drinking for the last few days because she have no appetite and she also have pain in her back because of her history of chronic back pain Patient have a history of A-fib as well on Eliquis Related Data Home Medications ?Medication ?Instructions ?Recorded ?Confirmed ezetimibe 10 mg tablet 10 mg PO DAILY 11/20/23 04/28/25 pantoprazole 40 mg tablet,delayed 40 mg PO DAILY 11/20/23 12/02/23 release apixaban 5 mg tablet (Eliquis) 5 mg PO BID 11/27/23 04/28/25 atorvastatin 40 mg tablet 40 mg PO .QHS 11/27/23 04/28/25 empagliflozin 10 mg tablet 10 mg PO DAILY 11/27/23 12/02/23 (Jardiance) isosorbide mononitrate 60 mg 90 mg PO .QD 12/02/23 12/02/23 tablet,extended release 24 hr albuterol sulfate 2.5 mg/3 mL mg 04/28/25 (0.083 %) solution for nebulization amlodipine 10 mg tablet mg 04/28/25 metformin 500 mg tablet mg 04/28/25 Previous Rx's ?Medication ?Instructions ?Recorded metoprolol tartrate 25 mg tablet 25 mg PO BID #60 tabs 11/29/23 doxycycline monohydrate 100 mg 100 mg PO BID 7 days #14 caps 12/05/23 capsule sacubitril 49 mg-valsartan 51 mg 1 tab PO BID #60 tabs 12/05/23 tablet (Entresto) Allergies Allergy/AdvReac Type Severity Reaction Status Date / Time No Known Drug Allergies Allergy Verified 11/20/23 21:54 Review of Systems ROS Status of ROS 10 or more systems reviewed and unremarkable except as noted in history and below [facility] Medical History (Updated 03/21/25 @ 21:31 by Maryana Alejandro MD) Hypotension ?I95.9 - Hypotension, unspecified (ICD-10) GI bleed ?K92.2 - Gastrointestinal hemorrhage, unspecified (ICD-10) Coronary artery disease ?I25.10 - Atherosclerotic heart disease of [place] coronary artery without angina pectoris (ICD-10) Acute HFrEF (heart failure with reduced ejection fraction) ?I50.21 - Acute systolic (congestive) heart failure (ICD-10) Leukocytosis ?D72.829 - Elevated white blood cell count, unspecified (ICD-10) Acute lower GI bleeding ?K92.2 - Gastrointestinal hemorrhage, unspecified (ICD-10) Abdominal pain ?R10.9 - Unspecified abdominal pain (ICD-10) Colitis ?K52.9 - Noninfective gastroenteritis and colitis, unspecified (ICD-10) Influenza A ?J10.1 - Influenza due to other identified influenza virus with other respiratory manifestations (ICD-10) Atrial fibrillation, new onset ?I48.91 - Unspecified atrial fibrillation (ICD-10) Heart attack ?I21.9 - Acute myocardial infarction, unspecified (ICD-10) Diabetes mellitus ?E11.9 - Type 2 diabetes mellitus without complications (ICD-10) Hypertension ?I10 - Essential (primary) hypertension (ICD-10) Surgical History (Updated 12/02/23 @ 15:02 by Misty Mays) Previous back surgery ?Z98.890 - Other specified postprocedural states (ICD-10) delivery delivered ?O82 - Encounter for delivery without indication (ICD-10) H/O left heart catheterization by ventricular puncture ?Z98.890 - Other specified postprocedural states (ICD-10) S/P triple vessel bypass ?Z95.1 - Presence of aortocoronary bypass graft (ICD-10) Family History (Updated 12/02/23 @ 15:03 by Misty Mays) Sister Family history of stroke Grandfather Family history of myocardial infarction Family history of cancer Grandmother Family history of myocardial infarction Mother Family history of hypertension Family history of diabetes mellitus Father Family history of COPD (chronic obstructive pulmonary disease) Social History (Updated 12/02/23 @ 15:04 by Misty Mays) Within the past year, how often did you have a drink containing alcohol: never Within the past year, how often did you have six or more drinks on one occasion: never Score interpretation: A score less than 3 is consistent with normal alcohol consumption. Smoking status: Former smoker Non-prescribed substance use: denies use Previous occupational history: disability Highest level of school completed/degree received: some college, no degree Are you now , , , , never or living with a partner: In a typical week, how many times do you talk on the telephone with family, friends, or neighbors: 3 or more times per week How often do you get together with friends or relatives: 3 or more times per week How often do you attend religious or faith services: never Do you belong to any clubs or organizations such as religious groups unions, fraternal or athletic groups, or school groups: no Total score: 1 Score interpretation: A score of less than or equal to 1 indicates the most socially isolated. Little interest or pleasure in doing things: not at all Feeling down, depressed, or hopeless: not at all Feel stressed/tense/nervous/anxious/difficulty sleeping: not at all Do you think of yourself as: straight/heterosexual Gender Identity: female Exam Narrative Exam Narrative: Nurses notes and vital signs reviewed and patient is not hypoxic. General: Well-appearing and in no apparent distress. Skin: Warm, dry, no pallor noted. No rash. Head: Normocephalic, atraumatic. Neck: Supple, non-tender. Eye: Pupils are equal, round and EOMI. No scleral icterus. Ears, Nose, Mouth, and Throat: TM are clear, no nasal mucosal hypertrophy. Oral mucosa is moist, no posterior oropharynx erythema, uvula is mid-line Cardiovascular: ir rhythm without murmur, gallop or rub. Respiratory: No accessory muscle use or respiratory distress. Lungs are clear to auscultation, no wheezing, rales or rhonchi Chest Wall: no tenderness Back: No midline thoracic or lumbar vertebral tenderness. No CVA tenderness Musculoskeletal: normal ROM, no calf or popliteal tenderness, no lower extremity edema/swelling GI: Abdomen is soft, non-distended. Normal bowel sounds. No masses appreciated. No tenderness to palpation. No rebound, guarding, or rigidity noted. Neurological: A&O x4. No cranial nerve dysfunction observed. Constitutional Vital Signs, click to edit/add: Last Vital Signs Temp 98.4 F 04/28/25 16:35 Pulse 93 H 04/28/25 18:30 Resp 17 04/28/25 18:30 BP 77/52 L 04/28/25 18:26 Pulse Ox 98 04/28/25 18:37 O2 Del Method Nasal Cannula 04/28/25 18:37 O2 Flow Rate 2 04/28/25 18:37 Course Vital Signs Vital signs: Vital Signs Temperature 98.4 F 04/28/25 16:35 Pulse Rate 96 H 04/28/25 16:35 Respiratory Rate 22 H 04/28/25 16:35 Blood Pressure 80/50 L 04/28/25 16:35 Pulse Oximetry 96 04/28/25 16:35 Oxygen Delivery Method Room Air 04/28/25 16:35 Temperature 98.4 F 04/28/25 16:35 Pulse Rate 93 H 04/28/25 18:30 Respiratory Rate 17 04/28/25 18:30 Blood Pressure 77/52 L 04/28/25 18:26 Pulse Oximetry 98 04/28/25 18:37 Oxygen Delivery Method Nasal Cannula 04/28/25 18:37 Oxygen Delivery Flow Rate 2 04/28/25 18:37 MDM - SOB/Dyspnea MDM Narrative Medical decision making narrative: The patient EKG upon arrival showing A-fib with a heart rate of [address] elevation or depression CBC and chemistry showed mild acute kidney injury X-ray showed old swelling that peritracheal mass The patient case was initially discussed with and the plan was to admit the patient after getting a CT angio the patient is doing well on her 2 L of nasal cannula and she also was provided with IV fluid to help her blood pressure to get elevated that could be secondary to dehydration Patient care was transferred to Dr Reza Lab Data Labs: Lab Results 04/28/25 Range/Units 17:16 WBC 11.2 H (4.0-11.0) 10^3/uL RBC 4.05 L (4.20-5.40) 10^6/uL Hgb 12.7 (12.0-16.0) g/dL Hct 38.6 (36.0-48.0) % MCV 95.3 (81.0-99.0) fL MCH 31.4 (26.7-34.0) pg MCHC 32.9 (29.9-35.2) g/dL RDW 13.8 (11.0-15.0) % Plt Count 237 (150-450) 10^3/uL MPV 9.5 (9.5-13.5) fL Neut % (Auto) 78.2 H (43.0-75.0) % Lymph % (Auto) 8.8 L (20.5-60.0) % [place] % (Auto) 6.5 (1.7-12.0) % Eos % (Auto) 5.5 (0.9-7.0) % Baso % (Auto) 0.5 (0.2-2.0) % Neut # (Auto) 8.7 H (1.4-6.5) 10^3/uL Lymph # (Auto) 1.0 L (1.2-3.8) 10^3/uL [place] # (Auto) 0.7 (0.3-0.8) 10^3/uL Eos # (Auto) 0.6 (0.0-0.7) 10^3/uL Baso # (Auto) 0.1 (0.0-0.1) 10^3/uL Abs Immat Gran (auto) 0.06 H (0.00-0.03) 10^3/uL Imm/Tot Granulo (auto) 0.5 (0.0-0.5) % PT 12.4 H (9.0-11.6) sec INR 1.19 Sodium 137 (136-145) mmol/L Potassium 4.2 (3.5-5.1) mmol/L Chloride 103 (98-107) mmol/L Carbon Dioxide 25.7 (21.0-32.0) mmol/L Anion Gap 12.5 BUN 22.0 H (7.0-18.0) mg/dL Creatinine 1.29 H (0.55-1.02) mg/dL Est GFR ( Amer) 51 L (>=60 mL/min/1.73m^2) Est GFR (Non-Af Amer) 42 L (>=60 mL/min/1.73m^2) BUN/Creatinine Ratio 17.1 Glucose 151 H (74-106) mg/dL Calcium 9.6 (8.5-10.1) mg/dL Magnesium 1.3 L (1.8-2.4) mg/dL Total Bilirubin 1.3 H (0.2-1.0) mg/dL AST 19 (15-37) U/L ALT 28 (14-59) U/L Alkaline Phosphatase 121 H (46-116) U/L Troponin I High Sens 7.8 (4.0-51.3) pg/mL Total Protein 6.5 (6.4-8.2) g/dL Albumin 2.2 L (3.4-5.0) g/dL Globulin 4.3 g/dL Albumin/Globulin Ratio 0.5 Discharge Plan Discharge Patient Disposition: Still a Patient
--- OUTSIDE RECORDS SUMMARY | 2025-04-28 21:14 | XMS_ITS | CCD ---
Author Organization [facility] Care Team Providers Care Cat Driver Name Role Phone PHYSICIAN, DEFAULT Unavailable Unavailable PHYSICIAN, DEFAULT Unavailable Unavailable MADISON MAGANA Unavailable Unavailable UNKNOWN, PROVIDER Unavailable Unavailable UNKNOWN, PROVIDER Unavailable Unavailable ZACKERY MAGANALAS Unavailable Unavailable MADISON MAGANA Unavailable Unavailable PEPE ., MYKE Admitting Unavailable PEPE Barr, MYKE Attending Unavailable DONNA, DR SUNIL Morrow Consulting Unavailable HOY ., DR WALLACE Primary Care Unavailable GRECHNY ., MOON [place] Consulting Unavailabl e CHINO [...] Admit Provider MD Johnny Bernal Attending Provider Madison Magana Primary Care Physician Ashley Tariq X Attending Unavailable Orzech, Ashley X Attending Unavailable Orzech, Ashley X Admitting Unavailable COOK, Benjy P Attending Unavailable COOK, Benjy P Admitting Unavailable COOK, Benjy P Attending Unavailable COOK, Benjy P Admitting Unavailable COOK, Benjy P Attending Unavailable COOK, Benjy P Referring Unavailable COOK, Benjy P Referring Unavailable COOK, Benjy P Admitting Unavailable COOK, Benjy P Attending Unavailable COOK, Benjy P Referring Unavailable COOK, Benjy P Admitting Unavailable COOK, Benjy P Attending Unavailable COOK, Benjy P Referring Unavailable COOK, Benjy P Attending Unavailable COOK, Benjy P Admitting Unavailable JUSTINE PARKS Attending Unavailable ANGELLA WHITE Attending Unavailable DANII CHOWDARY Attending Unavailable JUSTINE PARKS Referring Unavailable JUSTINE PARKS Attending Unavailable JUSTINE PARKS Attending Unavailable JUSTINE PARKS Attending Unavailable Madison Magana MD Primary Care Provider Madison Magana MD Primary Care Provider Isaac Greenwood Admitting Unavailable Madison Magana Primary Care Unavailable Jaimie Lopez Consulting Unavailable Johnny Bernal Attending Unavailable Zach Jones Consulting Unavailable Justine Jacobo Consulting Jayne López Consulting Unavailable Unavailable Primary Care Provider UnavailGLENNY Marti Admitting Unavailable MARYANA ALEJANDRO Referring Unavailable MADISON MAGANA Primary Care Unavailable SHANTANU GILLILAND Attending Unavailable BETH HAYDEN Referring Unavailable MADISON MAGANA Primary Care Unavailable MADISON MAGANA Primary Care Unavailable LIAM SINGH Referring Unavailable MADISON MAGANA Primary Care Unavailable MADISON MAGANA Primary Care Unavailable MADISON MAGANA Primary Care Unavailable MADISON MAGANA Primary Care Unavailable Allergies Allergy Classification Reported Allergen(s) Allergy Type Date of Onset Reaction(s) Facility (1 source) acetaminophen / oxyCODONE Drug Allergy 6 [facility] Repository (1 source) No Known Allergies; Translations: [No Known Allergies] Propensity to adverse reactions (disorder) 7 [facility] Repository (5 sources) Acetaminophen / oxyCODONE; Translations: [OXYCODONE-ACETAM INOPHEN] Drug Allergy 6 [facility] Repository (1 source) empagliflozin; Translations: [EMPAGLIFLOZIN] Drug Allergy 4 [facility] Repository Medications Current Medications Medication Drug Class(es) Dates Sig (Normalized) Sig (Original) acetaminophen 325 mg oral tablet (16 sources) Start: 03-29-2025 End: 04-07-2025 Start: 03-26-2025 End: 03-28-2025 take 1000 mg intravenously every six hours Start: 03-26-2025 End: 03-26-2025 Start: 09-17-2024 take 1000 mg by mout h twice daily as needed for pain acetaminophen 1,000 mg, Oral, BID, PRN as needed for pain, Refills(s) 0 Start Date: 09/17/24 Status: Ordered albuterol 0.83 mg/ml inhalation solution (3 sources) beta2-Adrenergic Agonist Start: 03-24-2025 End: 03-29-2025 albuterol 0.833 mg/ml / ipratropium bromide 0.167 mg/ml inhalation solution (2 sources) Anticholinergic, beta2-Adrenergic Agonist Start: 03-22-2025 amiodarone hydrochloride 200 mg oral tablet (9 sources) Antiarrhythmic Start: 07-03-2016 take 1 tablet by mouth once daily amiodarone (PACERONE) 200 mg tablet Take 200 mg by mouth daily. 07/03/2016 Active amLODIPine 10 mg oral tablet (9 sources) Dihydropyridine Calcium Channel Indra Start: 09-17-2024 amLODIPine 10 mg Tab 10 mg = 1 tab(s), Oral, Refills(s) 0 Start Date: 09/17/24 Status: Ordered apixaban 5 mg oral tablet (15 sources) Factor Xa Inhibitor Start: 11-25-2023 aspirin 81 mg delayed release oral tablet (9 sources) Platelet Aggregation Inhibitor, Nonsteroidal Anti-inflammatory Drug Start: 07-03-2016 take 81 mg by mouth once daily aspirin 81 mg Take 81 mg by mouth daily. 07/03/2016 Active atorvastatin 40 mg oral tablet (20 sources) HMG-CoA Reductase Inhibitor Start: 11-25-2023 Start: 11-21-2023 End: 11-25-2023 take 20 mg by mouth once daily Atorvastatin Discontinu ed 20 MG PO Daily November 21, 2023 12:00am November 25, 2023 12:43pm Start: 07-03-2016 take 1 tablet by janay th once daily atorvastatin (LIPITOR) 80 mg tablet Take 80 mg by mouth daily. 07/03/2016 Active benzocaine 15 mg / menthol 3.6 mg oral lozenge (2 sources) Standardized Chemical Allergen Start: 03-31-2025 canagliflozin 100 mg oral tablet (9 sources) Sodium-Glucose Cotransporter 2 Inhibitor Start: 09-17-2024 take 1 tablet by mouth once daily Invokana 100 mg oral tablet 100 mg = 1 tab(s), Oral, Daily, Refills(s) 0, High blood sugar Start Date: 09/17/24 Status: Ordered clopidogrel 75 mg oral tablet (4 sources) P2Y12 Platelet Inhibitor Start: 07-03-2016 take 1 tablet by mouth once daily clopidogrel (PLAVIX) 75 mg tablet Take 75 mg by mouth daily. 07/03/2016 Active docusate sodium 100 mg oral tablet (4 sources) Start: 07-03-2016 take 1 capsule by mouth twice daily as needed for constipation docusate sodium 100 mg capsule Take 100 mg by mouth 2 (two) times a day as needed for constipation. 07/03/2016 Active docusate sodium 50 mg / sennosides, alf 8.6 mg oral tablet (2 sources) Start: 04-06-2025 Drug or medicament (substance) (12 sources) Start: 04-06-2025 Start: 03-29-2025 Start: 03-28-2025 End: 03-29-2025 Start: 03-26-2025 End: 03-28-2025 Start: 03-25-2025 End: 03-26-2025 Start: 03-25-2025 End: 03-25-2025 Start: 03-25-2025 End: 03-25-2025 Start: 03-24-2025 End: 03-25-2025 Start: 03-23-2025 End: 03-24-2025 Start: 03-22-2025 End: 03-23-2025 Start: 03-22-2025 End: 03-22-2025 Start: 03-22-2025 End: 03-22-2025 ezetimibe 10 mg oral tablet (15 sources) Dietary Cholesterol Absorption Inhibitor Start: 03-22-2025 Start: 06-02-2024 take 1 tablet by janay th once daily ezetimibe 10 mg Tab 10 mg = 1 tab(s), Oral, Daily, TAKE 1 TABLET BY MOUTH DAILY Start Date: 06/02/24 Status: Ordered Start: 11-21-2023 End: 11-25-2023 take 10 mg by mouth once daily Ezetimibe Discontinued 10 MG PO Daily November 21, 2023 12:00am November 25, 2023 12:43pm ferrous sulfate 325 mg oral tablet (4 sources) Start: 07-03-2016 take 1 tablet by mouth three times daily at mealtime ferrous sulfate 325 (65 FE) mg tablet Take 325 mg by mouth 3 (three) times a day with meals. 07/03/2016 Active glucagon (rdna) 1 mg injection (2 sources) Antihypoglycemic Agent Start: 03-22-2025 50 ml glucose 500 mg/ml prefilled syringe (2 sources) Start: 03-22-2025 hydroCHLOROthiazide 12.5 mg oral tablet (4 sources) Thiazide Diuretic take 1 tablet by mouth once daily hydroCHLOROthiazide (HYDRODIURIL) 12.5 mg tablet Take 12.5 mg by mouth daily. script viewed in home Active insulin lispro 100 unt/ml injectable solution (2 sources) Insulin Analog Start: 03-22-2025 End: 03-31-2025 lidocaine 0.05 mg/mg medicated patch (13 sources) Antiarrhythmic, Amide Local Anesthetic Start: 06-02-2024 lidocaine Top 5% film Patch 1 patch(es), Topical, Daily, apply 1 patch TO THE AFFECTED AREA(S) DAILY leave on for 12 hours and off for 12 hours Start Date: 06/02/24 Status: Ordered metFORMIN hydrochloride 500 mg oral tablet (14 sources) Biguanide Start: 09-17-2024 metformin 500 mg Tab Oral, Daily, Refills(s) 0, High blood sugar Start Date: 09/17/24 Status: Ordered Start: 11-21-2023 End: 11-25-2023 take 500 mg by mouth twice daily Metformin Discontinued 500 MG PO Twice daily November 21, 2023 12:00am November 25, 2023 12:46pm 24 hr metoprolol succinate 1 00 mg extended release oral tablet (20 sources) beta-Adrenergic Indra Start: 04-06-2025 Start: 03-28-2025 Start: 03-22-2025 End: 03-22-2025 Start: 06-02-2024 take 2 tablets by mo [facility] once daily metoprolol succinate 50 mg ER Tab 100 mg = 2 tab(s), Oral, Daily, to equal 100mg. Start Date: 06/02/24 Status: Ordered Start: 06-02-2024 take 1 tablet by janay once daily metoprolol succinate 50 mg ER Tab 50 mg = 1 tab(s), Oral, Daily Start Date: 06/02/24 Status: Ordered Start: 11-25-2023 take 50 mg by mouth once daily Metoprolol Succinate Active 50 MG PO Daily 90 90 November 25, 2023 12:00am Start: 07-03-2016 End: 03-22-2025 metoprolol tartrate (LOPRESS OR) 25 mg tablet Take 12.5 mg by mouth 2 (two) times a day. 07/03/2016 Active End: 04-04-2025 mineral oil 0.14 mg/mg / petrolatum 0.749 mg/mg / phenylephrine hydrochloride 0.0025 mg/mg rectal ointment (2 sources) alpha-1 Adrenergic Agonist Start: 03-28-2025 ondansetron 4 mg oral tablet (7 sources) Serotonin-3 Receptor Antagonist Start: 04-06-2025 take 4 mg by mouth every six hours as needed for nausea and nausea Start: 03-26-2025 End: 03-26-2025 Start: 03-26-2025 End: 03-26-2025 Start: 07-03-2016 take 1 tablet by janay th every eight hours as needed for nausea and vomiting ondansetron ODT (ZOFRAN-ODT) 4 mg disintegrating tablet Take 4 mg by mouth every 8 (eight) hours as needed for nausea or vomiting. 07/03/2016 Active oxyCODONE hydrochloride 5 mg oral tablet (7 sources) Opioid Agonist Start: 07-03-2016 End: 04-02-2025 take 1 tablet by mouth every four hours as needed for pain oxyCODONE (ROXICODONE) 5 mg immediate release tablet Take 5 mg by mouth every 4 (four) hours as needed for pain. 07/03/2016 Active polyethylene glycol 3350 57032 mg powder for oral solution (4 sources) Osmotic Laxative Start: 03-22-2025 End: 04-06-2025 sacubitril 97 mg / valsartan 103 mg oral tablet (16 sources) Angiotensin 2 Receptor Indra Start: 03-29-2025 Start: 03-28-2025 End: 03-29-2025 Start: 06-02-2024 take 1 tablet by janay th twice daily, then take 1 tablet by mouth twice daily at bedtime Entresto 97 mg-103 mg oral tablet 1 tab(s), Oral, BID, TAKE 1 TABLET BY MOUTH TWICE DAILY (IN THE MORNING and AT BEDTIME) Start Date: 06/02/24 Status: Ordered Start: 11-25-2023 take 1 tablet by janay th twice daily Sacubitril-Valsartan (Entresto) 24-26 mg Tablet Active 1 TAB PO Twice daily 180 90 November 25, 2023 12:00am Semaglutide (1 source) Start: 11-21-2023 Semaglutide (Ozempic) 0.25 mg or 0.5 mg (2 mg/3 mL) pen injector Active 0.5 MG SUBCUT .weekly November 21, 2023 12:00am SITagliptin 100 mg oral tablet (9 sources) Dipeptidyl Peptidase 4 Inhibitor Start: 09-17-2024 Januvia 100 mg Tab Oral, Daily, Refills(s) 0, High blood sugar Start Date: 09/17/24 Status: Ordered sodium chloride 30 mg/ml inhalation solution (3 sources) Start: 03-24-2025 End: 03-29-2025 spironolactone 25 mg oral tablet (15 sources) Aldosterone Antagonist Start: 06-02-2024 Start: 06-02-2024 take 1 tablet by janay th once daily, then take 0.5 tablet by mouth in the morning spironolactone 25 mg Tab 25 mg = 1 tab(s), Oral, Daily, TAKE 1/2 (ONE-HALF) OF A TABLET BY MOUTH IN THE MORNING Start Date: 06/02/24 Status: Ordered Start: 11-25-2023 take 25 mg by mouth once daily Spironolactone Active 25 MG PO Daily 90 90 November 25, 2023 12:00am sulfamethoxazole 800 mg / trimethoprim 160 mg oral tablet (1 source) Dihydrofolate Reductase Inhibitor Antibacterial, Sulfonamide Antimicrobial Start: 09-24-2024 Bactrim D.S. 800 mg-160 mg Tab 1 tab(s), Oral, BID, 10 tab(s), Refill(s) 0, [facility], 176, cm, 09/17/24 13:57:00 EST, Height/Length Dosing, 109.1, kg, 09/17/24 13:57:00 EST, Weight Dosing Start Date: 09/24/24 Status: Ordered tiZANidine 4 mg oral tablet (15 sources) Central alpha-2 Adrenergic Agonist Start: 03-28-2025 End: 03-30-2025 Start: 06-02-2024 take 2 tablets by mo uth at bedtime tiZANidine 4 mg Tab 4 mg = 1 tab(s), Oral, Bedtime, TAKE 2 TABLETS BY MOUTH AT BEDTIME Start Date: 06/02/24 Status: Ordered (2 sources) Start: 04-06-2025 Start: 03-30-2025 (2 sources) Start: 03-30-2025 take 4 mg by mouth every six hours as needed [Order 1 Start] Name: ondansetron (Zofran) tablet 4 mg Signed Summary: 4 mg, oral, Every 6 hours PRN, nausea/vomiting, second line, Starting on Sat03/30/25 at 1302 [Order 1 End] [Order 2 Start] Name: ondansetron (Zofran) injection 4 mg Signed Summary: 4 mg, intravenous, Every 6 hours PRN, nausea/vomiting, second line, Starting on Sat03/30/25 at 1302, Give IV if patient is unable to take orally. When administering via IV Push, administer over 3-5 minutes. [Order 2 End] Start: 03-30-2025 take 10 mg by mouth every six hours as needed [Order 1 Start] Name: prochlorperazine (Compazine) tablet 10 mg Signed Summary: 10 mg, oral, Every 6 hours PRN, nausea/vomiting, first line, Starting on Sat03/30/25 at 1301 [Order 1 End] [Order 2 Start] Name: prochlorperazine (Compazine) injection 10 mg Signed Summary: 10 mg, intravenous, Every 6 hours PRN, nausea/vomiting, first line, Starting on Sat03/30/25 at 1301, Give IV if patient is unable to take orally. [Order 2 End] Completed/Discontinued Medications Medication Drug Class(es) Dates Sig (Normalized) Sig (Original) amoxicillin 875 mg / clavulanate 125 mg oral tablet (1 source) Penicillin-class Antibacterial Start: 11-21-2023 End: 11-25-2023 take 1 tablet by mouth every twelve hours Amoxicillin-Pot Clavulanate Discontinued 1 TAB PO Every 12 hours November 21, 2023 12:00am November 25, 2023 12:43pm calcium chloride 0.0014 meq/ml / potassium chloride 0.004 meq/ml / sodium chloride 0.103 meq/ml / sodium lactate 0.028 meq/ml injectable solution (1 source) Start: 03-24-2025 End: 03-24-2025 cephalexin 500 mg oral capsule (2 sources) Cephalosporin Antibacterial Start: 06-05-2024 take 1 capsule by mouth once daily Keflex 500 mg Cap 500 mg = 1 cap(s), Oral, BID, Take 1 cap day prior to procedure and 1 cap day of procedure - afterwards, # 2 cap(s), Refills(s) 0, Pharmacy: [id number], 178, cm, 06/02/24 14:00:00 EDT, Height/Length Dosing, 105, kg, 06/02/24 14:00:00 EDT, Weight Dosing Start Date: 06/05/24 Status: Ordered 100 ml dexmedetomidine 0.004 mg/ml injection (1 source) Central alpha-2 Adrenergic Agonist Start: 03-25-2025 End: 03-26-2025 empagliflozin 10 mg oral tablet (7 sources) Sodium-Glucose Cotransporter 2 Inhibitor Start: 06-02-2024 take 1 tablet by mouth once daily in the morning Jardiance 10 mg oral tablet 10 mg = 1 tab(s), Oral, qAM, take 1 tablet by mouth once daily Start Date: 06/02/24 Status: Ordered Start: 11-25-2023 End: 03-22-2025 take 1 tablet by mouth once daily Empagliflozin (Jardiance) 10 mg Tablet Active 10 MG PO Daily November 25, 2023 12:00am 2 ml furosemide 10 mg/ml inj ection (7 sources) Loop Diuretic Start: 03-27-2025 End: 03-27-2025 Start: 03-25-2025 End: 03-27-2025 Start: 11-25-2023 End: 03-22-2025 take 1 tablet by mouth once daily Furosemide (Lasix) 20 mg tablet Active 20 MG PO Daily November 25, 2023 12:00am 1 ml heparin sodium, porcine 5000 unt/ml injection (1 source) Unfractionated Heparin, Anti-coagulant Start: 03-23-2025 End: 03-23-2025 inject 5000 [IU] by subcutaneous injection every eight hours 0.5 ml HYDROmorphone hydrochloride 1 mg/ml prefilled syringe (1 source) Opioid Agonist Start: 04-01-2025 End: 04-01-2025 Start: 04-01-2025 End: 04-01-2025 24 hr isosorbide mononitrate 60 mg extended release oral tablet (1 source) Nitrate Vasodilator End: 03-22-2025 1 ml ketorolac tromethamine 30 mg/ml injection (1 source) Nonsteroidal Anti-inflammatory Drug, Cyclooxygenase Inhibitor Start: 03-26-2025 End: 03-26-2025 lisinopril 40 mg oral tablet (5 sources) Angiotensin Converting Enzyme Inhibitor Start: 11-21-2023 End: 11-25-2023 take 40 mg by mouth once daily Lisinopril Discontinued 40 MG PO Daily November 21, 2023 12:00am November 25, 2023 12:43pm Start: 07-03-2016 take 1 tablet by janay th once daily lisinopril (PRINIVIL,ZESTRIL) 2.5 mg tablet Take 2.5 mg by mouth daily. 07/03/2016 Active loperamide hydrochloride 2 m g oral capsule (1 source) Opioid Agonist Start: 03-31-2025 End: 03-31-2025 50 ml magnesium sulfate 40 m g/ml injection (3 sources) Start: 03-27-2025 End: 03-27-2025 Start: 03-24-2025 End: 03-24-2025 pantoprazole 40 mg injection (20 sources) Proton Pump Inhibitor Start: 03-29-2025 End: 03-31-2025 Start: 07-03-2016 take 1 tablet by janay th once daily pantoprazole (PROTONIX) 40 mg EC tablet Take 40 mg by mouth daily. 07/03/2016 Active microencapsulated potassium chloride 20 meq extended release oral tablet (6 sources) Start: 03-30-2025 End: 03-30-2025 Start: 03-28-2025 End: 03-28-2025 Start: 03-27-2025 End: 03-28-2025 take 20 mEq intravenously every two hours Start: 03-26-2025 End: 03-26-2025 take 20 mEq intravenously every two hours Start: 11-25-2023 take 10 mEq by mouth once ernestine y Potassium Chloride Active 10 MEQ PO Daily November 25, 2023 12:00am monobasic potassium phosphate 0.0408 meq/ml oral solution (1 source) Start: 03-31-2025 End: 03-31-2025 prochlorperazine 5 mg/ml injectable solution (1 source) Phenothiazine Start: 03-28-2025 End: 03-30-2025 take 10 mg intravenously every six hours as needed 10 ml propofol 10 mg/ml injection (1 source) General Anesthetic Start: 03-22-2025 End: 03-26-2025 (1 source) Start: 04-01-2025 End: 04-01-2025 (1 source) Start: 03-29-2025 End: 03-29-2025 (1 source) Start: 03-28-2025 End: 03-28-2025 (4 sources) Start: 03-22-2025 End: 03-26-2025 Start: 03-22-2025 End: 03-22-2025 Start: 03-22-2025 End: 03-22-2025 Start: 03-22-2025 End: 03-26-2025 (2 sources) Start: 03-22-2025 End: 03-29-2025 take 3 g intravenously every six hours Start: 03-22-2025 End: 03-22-2025 (1 source) Start: 03-22-2025 End: 03-22-2025 (1 source) Start: 03-22-2025 End: 03-23-2025 Problems Active Problems Problem Classification Problem Date Documented Da te Episodic/Chronic Acute myocardial infarction (15 sources) Myocardial infarction; Translations: [Non-ST elevation (NSTEMI) myocardial infarction] Onset: 4 11-21-2023 Chronic Anal and rectal conditions (3 sources) Rectal pain; Translations: [Other specified diseases of anus and rectum] Onset: 5 04-06-2025 Episodic Anxiety disorders (1 source) Anxiety disorder, unspecified; Translations: [ANXIETY DISORDER UNSPECIFIED] Onset: 2 Chronic Calculus of urinary tract (15 sources) Personal history of urinary calculi; Translations: [Kidney stone] Onset: 2 Episodic Cancer of bronchus; lung (20 sources) Malignant neoplasm of upper lobe, bronchus or lung; Translations: [Malignant neoplasm of upper lobe, right bronchus or lung] Onset: 5 03-30-2025 Chronic Cardiac dysrhythmias (16 sources) Atrial fibrillation; Translations: [Unspecified atrial fibrillation] Onset: 4 11-21-2023 Chronic Chronic obstructive pulmonary disease and bronchiectasis (8 sources) Chronic obstructive lung disease; Translations: [Chronic obstructive pulmonary disease, unspecified] Onset: 5 04-16-2025 Chronic Complication of device; implant or graft (3 sources) Arteriosclerosis of coronary artery bypass graft; Translations: [Atherosclerosis of coronary artery bypass graft(s) without angina pectoris] Onset: 5 04-06-2025 Chronic Congestive heart failure; nonhypertensive (20 sources) Heart failure with reduced ejection fraction; Translations: [Unspecified systolic (congestive) heart failure] Onset: 4 11-21-2023 Chronic Coronary atherosclerosis and other heart disease (20 sources) Atherosclerotic heart disease of [place] coronary artery without angina pectoris; Translations: [Coronary arteriosclerosis] Onset: 7 11-21-2023 Chronic Crushing injury or internal injury (2 sources) Injury of heart; Translations: [Myocardial injury] 11-21-2023 Episodic Diabetes mellitus with complications (5 sources) Polyneuropathy due to diabetes mellitus; Translations: [Type 2 diabetes mellitus with diabetic polyneuropathy] Onset: 5 04-17-2025 Chronic Diabetes mellitus without complication (11 sources) Type 2 diabetes mellitus without complications; Translations: [Diabetes mellitus] Onset: 7 11-21-2023 Chronic Diseases of white blood cells (6 sources) Leukocytosis 06-02-2024 Chronic Disorders of lipid metabolism (7 sources) Hyperlipidemia, unspecified; Translations: [Hypercholesterolemia] Onset: 7 06-02-2024 Chronic Esophageal disorders (9 sources) Gastroesophageal reflux disease; Translations: [Gastroesophageal reflux disease without esophagitis] Onset: 5 06-02-2024 Chronic Essential hypertension (20 sources) Essential (primary) hypertension; Translations: [Hypertensive disorder] Onset: 7 11-21-2023 Chronic Gastrointestinal hemorrhage (10 sources) Gastrointestinal hemorrhage; Translations: [Gastrointestinal hemorrhage, unspecified] Onset: 4 06-02-2024 Episodic Genitourinary symptoms and ill-defined conditions (8 sources) Blood in urine; Translations: [Gross hematuria] Onset: Episodic Headache; including migraine (2 sources) Headache; Translations: [Headache] 11-21-2023 Episodic Headache; including migraine (1 source) Headache; including migraine; Translations: [Headache, unspecified] Onset: 4 Maintenance chemotherapy; radiotherapy (3 sources) Patient encounter status; Translations: [Encounter for antineoplastic radiation therapy] Onset: 5 04-01-2025 Chronic Malaise and fatigue (2 sources) Fatigue; Translations: [Other fatigue] Onset: 5 04-22-2025 Episodic Nausea and vomiting (8 sources) Nausea; Translations: [Nausea] Onset: 5 04-06-2025 Episodic Noninfectious gastroenteritis (3 sources) Noninfectious gastroenteritis; Translations: [Noninfective gastroenteritis and colitis, unspecified] Onset: 5 04-21-2025 Episodic Osteoarthritis (1 source) Unspecified osteoarthritis, unspecified site; Translations: [UNSPECIFIED OSTEOARTHRITIS UNS SITE] Onset: 2 Chronic Other aftercare (2 sources) Long-term current use of anticoagulant; Translations: [senior living (current) use of anticoagulants] Onset: 4 Episodic Other and ill-defined heart disease (6 sources) Heart disease Onset: 4 06-02-2024 Chronic Other circulatory disease (5 sources) Low blood pressure; Translations: [Hypotension, unspecified] Onset: 5 04-16-2025 Episodic Other connective tissue disease (6 sources) Muscle weakness; Translations: [Muscle weakness (generalized)] Onset: 5 04-17-2025 Episodic Other diseases of bladder and urethra (2 sources) Detrusor overactivity; Translations: [Overactive bladder] Onset: 4 Chronic Other diseases of bladder and urethra (6 sources) Overactive bladder 06-02-2024 Chronic Other endocrine disorders (3 sources) Disorder of adrenal gland; Translations: [Other specified disorders of adrenal gland] Onset: 4 Chronic Other gastrointestinal disorders (6 sources) Adrenal mass 06-02-2024 Episodic Other gastrointestinal disorders (2 sources) Constipation; Translations: [Other constipation] Onset: 5 04-06-2025 Episodic Other gastrointestinal disorders (1 source) Other constipation; Translations: [Other constipation] Onset: 5 Episodic Other lower respiratory disease (1 source) Dyspnea; Translations: [Shortness of breath] 11-21-2023 Episodic Other nervous system disorders (1 source) Pain due to neoplastic disease; Translations: [Neoplasm related pain (acute) (chronic)] 04-06-2025 Chronic Other nervous system disorders (2 sources) Neoplasm related pain (acute) (chronic); Translations: [Neoplasm related pain (acute) (chronic)] Onset: 5 Chronic Other nervous system disorders (6 sources) Unsteady when standing; Translations: [Unsteadiness on feet] Onset: 5 04-17-2025 Episodic Other nutritional; endocrine; and metabolic disorders (1 source) Morbid (severe) obesity due to excess calories; Translations: [MORBID SEVERE OBES D/T EXCESS JOSÉ LUIS] Onset: 2 Chronic Other nutritional; endocrine; and metabolic disorders (1 source) Body mass index (BMI) 40.0-44.9, adult; Translations: [BODY MASS INDEX BMI 40.0-44.9 ADULT] Onset: 2 Chronic Other skin disorders (1 source) Xeroderma; Translations: [Xerosis cutis] 04-06-2025 Episodic Other skin disorders (2 sources) Xerosis cutis; Translations: [Xerosis cutis] Onset: 5 Episodic Pleurisy; pneumothorax; pulmonary collapse (3 sources) Pneumothorax; Translations: [Pneumothorax, unspecified] Onset: 5 04-21-2025 Episodic Residual codes; unclassified (2 sources) Tobacco user 09-17-2024 Episodic Respiratory failure; insufficiency; arrest (adult) (20 sources) Acute respiratory failure; Translations: [Acute respiratory failure with hypoxia] Onset: 4 11-21-2023 Episodic Screening or history of mental health and substance abuse (9 sources) Personal history of nicotine dependence; Translations: [H/O: Disorder] Onset: 7 Episodic Substance-related disorders (6 sources) Nicotine dependence, cigarettes, uncomplicated; Translations: [Smoker] Onset: 2 09-17-2024 Chronic Comment on above: Added secondary to d ocumentation in Social History. 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] Onset: 7 Unclassified (2 sources) Unknown / UNK(Unknown) Onset: 7 Unclassified (2 sources) CONTACT W/AND (SUSP) EXPOS COVID-19; Translations: [CONTACT W/AND (SUSP) EXPOS COVID-19] Onset: 2 Unclassified (1 source) COUGH, UNSPECIFIED; Translations: [COUGH, UNSPECIFIED] Onset: 2 Unclassified (6 sources) Drug therapy finding 06-02-2024 Unclassified (1 source) Non-ischemic myocardial injury (non-traumatic); Translations: [Non-ischemic myocardial injury (non-traumatic)] Onset: 4 Unclassified (2 sources) OTV; Translations: [OTV] Onset: 5 Viral infection (1 source) COVID-19; Translations: [COVID-19] Onset: 2 Past or Other Problems Problem Classification Problem Date Documented Da te Episodic/Chronic Coronary atherosclerosis and other heart disease (6 sources) Presence of aortocoronary bypass graft; Translations: [Aortocoronary bypass status] Onset: 05-10-2017 11-25-2023 Episodic E Codes: Fall (1 source) Unspecified fall, initial encounter; Translations: [UNSPECIFIED FALL INITIAL ENCOUNTER] Onset: 04-11-2022 Episodic Influenza (3 sources) Influenza due to Influenza A virus; Translations: [Influenza due to other identified influenza virus with other respiratory manifestations] Onset: 11-21-2023 11-21-2023 Episodic Nonspecific chest pain (7 sources) Chest pain, unspecified; Translations: [Chest pain] Onset: 05-10-2017 11-21-2023 Episodic Other aftercare (3 sources) senior living (current) use of aspirin; Translations: [senior living (current) use of antithrombotics/anti platelets] Onset: 05-10-2017 Episodic Other aftercare (1 source) 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; Translations: [OTH SENIOR CARE CURRENT DRUG THERAPY] Onset: 04-11-2022 Episodic Other connective tissue disease (1 source) Arthrodesis status; Translations: [ARTHRODESIS STATUS] Onset: 04-11-2022 Episodic Other injuries and conditions due to external causes (1 source) Other specified injuries of head, initial encounter; Translations: [OTH SPEC INJURIES HEAD INITIAL ENC] Onset: 04-11-2022 Episodic Other lower respiratory disease (2 sources) Shortness of breath; Translations: [Shortness of breath] Onset: 11-21-2023 11-25-2023 Episodic Other upper respiratory disease (1 source) Nasal congestion; Translations: [NASAL CONGESTION] Onset: 08-18-2022 Episodic Residual codes; unclassified (1 source) Acquired absence of both cervix and uterus; Translations: [ACQUIRED ABSENCE BOTH CERVIX AND UTERUS] Onset: 04-11-2022 Episodic Superficial injury; contusion (1 source) Contusion of other part of head, initial encounter; Translations: [CONTUS OTH PRT HEAD INITIAL ENCNTR] Onset: 04-11-2022 Episodic Syncope (5 sources) Syncope and collapse; Translations: [SYNCOPE AND COLLAPSE] Onset: 05-10-2017 Episodic Unclassified (1 source) CONTACT W/AND (SUSP) EXPOS COVID-19; Translations: [CONTACT W/AND (SUSP) EXPOS COVID-19] Onset: 08-13-2022 Results Test Name Value Interpretation Reference Range Facility CBC W Auto Differential pane l (Bld)on 04-07-2025 Basophils (Bld) [#/Vol] 0.04 10*3/uL [facility] Basophils/100 WBC (Bld) 0.5 % 0.0 - 2.0 % [facility] Eosinophils (Bld) [#/Vol] 0.27 10*3/uL [facility] Eosinophils/100 WBC (Bld) 3.3 % 0.0 - 6.0 % [facility] Erythrocyte distribution width (RBC) [Ratio] 13.0 % 11.5 - 14.5 % [facility] Hematocrit (Bld) [Volume fraction] 39.3 % 36.0 - 46.0 % [facility] Hemoglobin (Bld) [Mass/Vol] 12.0 g/dL 12.0 - 16.0 g/dL [facility] Immature granulocytes (Bld) [#/Vol] 0.04 10*3/uL [facility] Immature granulocytes/100 WBC (Bld) 0.5 % 0.0 - 0.9 % [facility] Interpretation and review of laboratory results Abnormal [facility] Lymphocytes (Bld) [#/Vol] 1.12 10*3/uL Low [facility] Lymphocytes/100 WBC (Bld) 13.7 % 13.0 - 44.0 % [facility] MCH (RBC) [Entitic mass] 30.8 pg 26.0 - 34.0 pg [facility] MCHC (RBC) [Mass/Vol] 30.5 g/dL Low 32.0 - 36.0 g/dL [facility] MCV (RBC) [Entitic vol] 101 fL High 80 - 100 fL [facility] Monocytes (Bld) [#/Vol] 0.68 10*3/uL [facility] Monocytes/100 WBC (Bld) 8.3 % 2.0 - 10.0 % [facility] Neutrophils (Bld) [#/Vol] 6.05 10*3/uL [facility] Neutrophils/100 WBC (Bld) 73.7 % 40.0 - 80.0 % [facility] Nucleated RBC/100 WBC (Bld) [Ratio] 0.0 % [facility] Platelets (Bld) [#/Vol] 251 10*3/uL [facility] RBC (Bld) [#/Vol] 3.90 10*6/uL [facility] WBC (Bld) [#/Vol] 8.2 10*3/uL [facility] Basophils (Bld) [#/Vol] 0.04 x10*3/uL Normal 0.00-0.10 [facility] Comment on above: Performed By: #### 5 7021-8 ####DERRICK Hall ([id number])[facility] ([facility])[address] [place] [address] Basophils/100 WBC (Bld) 0.5 % Normal 0.0-2.0 [facility] Comment on above: Performed By: #### 5 7021-8 ####DERRICK Hall ([id number])[facility] ([facility])[address] [place] [address] Eosinophils (Bld) [#/Vol] 0.27 x10*3/uL Normal 0.00-0.70 [facility] Comment on above: Performed By: #### 5 7021-8 ####DERRICK Hall ([id number])[facility] ([facility])[id number] [place] [address] Eosinophils/100 WBC (Bld) 3.3 % Normal 0.0-6.0 [facility] Comment on above: Performed By: #### 5 7021-8 ####DERRICK Hall ([id number])[facility] ([facility])[address] [place] [address] Erythrocyte distribution width (RBC) [Ratio] 13.0 % Normal 11.5-14.5 [facility] Comment on above: Performed By: #### 5 7021-8 ####DERRICK Hall ([id number])[facility] ([facility])[address] [place] [address] Hematocrit (Bld) [Volume fraction] 39.3 % Normal 36.0-46.0 [facility] Comment on above: Performed By: #### 5 7021-8 ####DERRICK Hall ([id number])[facility] ([facility])[address] [place] [address] Hemoglobin (Bld) [Mass/Vol] 12.0 g/dL Normal 12.0-16.0 [facility] Comment on above: Performed By: #### 5 7021-8 ####DERRICK Hall ([id number])[facility] ([facility])[address] [place] [address] Immature granulocytes (Bld) [#/Vol] 0.04 x10*3/uL Normal 0.00-0.70 [facility] Comment on above: Performed By: #### 5 7021-8 ####DERRICK Hall ([id number])[facility] ([facility])[address] [place] [address] Immature granulocytes/100 WBC (Bld) 0.5 % Normal 0.0-0.9 [facility] Comment on above: Result Comment: Arlen ture Granulocyte Count (IG) includes promyelocytes, myelocytes and metamyelocytes but does not include bands. Percent differential counts (%) should be interpreted in the context of the absolute cell counts (cells/UL). Performed By: #### 5 7021-8 ####DERRICK Hall ([id number])[facility] ([facility])[address] [place] [address] Lymphocytes (Bld) [#/Vol] 1.12 x10*3/uL Low 1.20-4.80 [facility] Comment on above: Performed By: #### 5 7021-8 ####DERRICK Hall ([id number])[facility] ([facility])[address] [place] [address] Lymphocytes/100 WBC (Bld) 13.7 % Normal 13.0-44.0 [facility] Comment on above: Performed By: #### 5 7021-8 ####DERRICK Hall ([id number])[facility] ([facility])[address] [place] [address] MCH (RBC) [Entitic mass] 30.8 pg Normal 26.0-34.0 [facility] Comment on above: Performed By: #### 5 7021-8 ####DERRICK Hall ([id number])[facility] ([facility])[address] [place] [address] MCHC (RBC) [Mass/Vol] 30.5 g/dL Low 32.0-36.0 [facility] Comment on above: Performed By: #### 5 7021-8 ####DERRICK Hall ([id number])[facility] ([facility])[address] [place] [address] MCV (RBC) [Entitic vol] 101 fL High 80-100 [facility] Comment on above: Performed By: #### 5 7021-8 ####DERRICK Hall ([id number])[facility] ([facility])[address] [place] [address] Monocytes (Bld) [#/Vol] 0.68 x10*3/uL Normal 0.10-1.00 [facility] Comment on above: Performed By: #### 5 7021-8 ####DERRICK Hall ([id number])[facility] ([facility])[address] [place] [address] Monocytes/100 WBC (Bld) 8.3 % Normal 2.0-10.0 [facility] Comment on above: Performed By: #### 5 7021-8 ####DERRICK Hall ([id number])[facility] ([facility])[address] [place] [address] Neutrophils (Bld) [#/Vol] 6.05 x10*3/uL Normal 1.20-7.70 [facility] Comment on above: Result Comment: Perc ent differential counts (%) should be interpreted in the context of the absolute cell counts (cells/uL). Performed By: #### 5 7021-8 ####DERRICK Hall ([id number])[facility] ([facility])[address] [place] [address] Neutrophils/100 WBC (Bld) 73.7 % Normal 40.0-80.0 [facility] Comment on above: Performed By: #### 5 7021-8 ####DERRICK Hall ([id number])[facility] ([facility])[address] [place] [address] Nucleated RBC/100 WBC (Bld) [Ratio] 0.0 /100 WBCs Normal 0.0-0.0 [facility] Comment on above: Performed By: #### 5 7021-8 ####DERRICK Hall ([id number])[facility] ([facility])[address] [place] [address] Platelets (Bld) [#/Vol] 251 x10*3/uL Normal 150-450 [facility] Comment on above: Performed By: #### 5 7021-8 ####DERRICK Hall ([id number])[facility] ([facility])[address] [place] [address] RBC (Bld) [#/Vol] 3.90 x10*6/uL Low 4.00-5.20 [facility] Comment on above: Performed By: #### 5 7021-8 ####DERRICK Hall ([id number])[facility] ([facility])[id number] [place] [address] WBC (Bld) [#/Vol] 8.2 x10*3/uL Normal 4.4-11.3 [facility] Comment on above: Performed By: #### 5 7021-8 ####DERRICK Hall ([id number])[facility] ([facility])[address] [place] [address] Glucose Test strip manual (B ld) [Mass/Vol]on 04-07-2025 Glucose [Mass/Vol] 177 mg/dL High 74 - 99 mg/dL [facility] Interpretation and review of laboratory results Abnormal [facility] Glucose [Mass/Vol] 177 mg/dL High 74-99 [facility] Comment on above: Performed By: #### 2 341-6 ####DERRICK Hall ([id number])[facility] ([facility])[address] [place] [address] Magnesiumon 04-07-2025 Magnesium [Mass/Vol] 2.04 mg/dL 1.60 - 2.40 mg/dL [facility] Magnesium [Mass/Vol] 2.04 mg/dL Normal 1.60-2.40 [facility] Comment on above: Performed By: #### 1 9123-9 ####DERRICK Hall ([id number])[facility] ([facility])[address] [place] [address] Magnesium [Mass/Vol]on 04-07 Interpretation and review of laboratory results Normal [facility] No Panel Informationon 04-07 [facility] Renal function 2000 panelon 04-07-2025 Albumin BCP dye [Mass/Vol] 3.0 g/dL Low 3.4 - 5.0 g/dL [facility] Anion gap [Moles/Vol] 13 mmol/L 10 - 2 0 mmol/L [facility] Calcium [Mass/Vol] 9.1 mg/dL 8.6 - 10. 6 mg/dL [facility] Chloride [Moles/Vol] 100 mmol/L 98 - 10 7 mmol/L [facility] CO2 [Moles/Vol] 26 mmol/L 21 - 32 mmol/L [facility] Creatinine [Mass/Vol] 0.52 mg/dL 0.50 - 1.05 mg/dL [facility] eGFR - PINF [facility] Glucose [Mass/Vol] 180 mg/dL High 74 - 99 mg/dL [facility] Interpretation and review of laboratory results Abnormal [facility] Phosphate [Mass/Vol] 3.1 mg/dL 2.5 - 4 .9 mg/dL [facility] Potassium [Moles/Vol] 4.6 mmol/L 3.5 - 5.3 mmol/L [facility] Sodium [Moles/Vol] 134 mmol/L Low 136 - 145 mmol/L [facility] Urea nitrogen [Mass/Vol] 10 mg/dL 6 - 23 mg/dL [facility] Albumin BCP dye [Mass/Vol] 3.0 g/dL Low 3.4-5.0 [facility] Comment on above: Performed By: #### 2 4362-6 ####DERRICK Hall ([id number])[facility] ([facility])[address] [place] [address] Anion gap [Moles/Vol] 13 mmol/L Normal 10-20 [facility] Comment on above: Performed By: #### 2 4362-6 ####DERRICK Hall ([id number])[facility] ([facility])[address] [place] [address] Calcium [Mass/Vol] 9.1 mg/dL Normal 8.6-10.6 [facility] Comment on above: Performed By: #### 2 4362-6 ####DERRICK BRAR L ([id number])[facility] ([facility])[address] [place] [address] Chloride [Moles/Vol] 100 mmol/L Normal 98-107 [facility] Comment on above: Performed By: #### 2 4362-6 ####DERRICK BRAR L ([id number])[facility] ([facility])[address] [place] [address] CO2 [Moles/Vol] 26 mmol/L Normal 21-32 [facility] Comment on above: Performed By: #### 2 4362-6 ####DERRICK BRAR L ([id number])[facility] ([facility])[address] [place] [address] Creatinine [Mass/Vol] 0.52 mg/dL Normal 0.50-1.05 [facility] Comment on above: Performed By: #### 2 4362-6 ####DERRICK BRAR L ([id number])[facility] ([facility])[address] [place] [address] Glomerular filtration rate >90 Normal >60 [facility] Comment on above: Result Comment: Calc ulations of estimated GFR are performed using the 2020 CKD-EPI Study Refit equation without the race variable for the IDMS-Traceable creatinine methods.https://jasn.asnjournals.org/content/early/ N.8722459893 Performed By: #### 2 4362-6 ####DERRICK BRAR L ([id number])[facility] ([facility])[address] [place] [address] Glucose [Mass/Vol] 180 mg/dL High 74-99 [facility] Comment on above: Performed By: #### 2 4362-6 ####DERRICK Hall ([id number])[facility] ([facility])[address] [place] [address] Phosphate [Mass/Vol] 3.1 mg/dL Normal 2.5-4.9 [facility] Comment on above: Performed By: #### 2 4362-6 ####DERRICK Hall ([id number])[facility] ([facility])[address] [place] [address] Potassium [Moles/Vol] 4.6 mmol/L Normal 3.5-5.3 [facility] Comment on above: Performed By: #### 2 4362-6 ####DERRICK Hall ([id number])[facility] ([facility])[address] [place] [address] Sodium [Moles/Vol] 134 mmol/L Low 136-145 [facility] Comment on above: Performed By: #### 2 4362-6 ####DERRICK Hall ([id number])[facility] ([facility])[address] [place] [address] Urea nitrogen [Mass/Vol] 10 mg/dL Normal 6-23 [facility] Comment on above: Performed By: #### 2 4362-6 ####DERRICK Hall ([id number])[facility] ([facility])[address] [place] [address] XR CHEST 1 VIEWon 04-07-2025 XR CHEST 1 VIEW Normal [facility] CBC W Auto Differential pane l (Bld)on 04-06-2025 Basophils (Bld) [#/Vol] 0.04 10*3/uL [facility] Basophils/100 WBC (Bld) 0.5 % 0.0 - 2.0 % [facility] Eosinophils (Bld) [#/Vol] 0.18 10*3/uL [facility] Eosinophils/100 WBC (Bld) 2.3 % 0.0 - 6.0 % [facility] Erythrocyte distribution width (RBC) [Ratio] 12.8 % 11.5 - 14.5 % [facility] Hematocrit (Bld) [Volume fraction] 38.8 % 36.0 - 46.0 % [facility] Hemoglobin (Bld) [Mass/Vol] 12.1 g/dL 12.0 - 16.0 g/dL [facility] Immature granulocytes (Bld) [#/Vol] 0.04 10*3/uL [facility] Immature granulocytes/100 WBC (Bld) 0.5 % 0.0 - 0.9 % [facility] Interpretation and review of laboratory results Abnormal [facility] Lymphocytes (Bld) [#/Vol] 0.99 10*3/uL Low [facility] Lymphocytes/100 WBC (Bld) 12.9 % 13.0 - 44.0 % [facility] MCH (RBC) [Entitic mass] 30.8 pg 26.0 - 34.0 pg [facility] MCHC (RBC) [Mass/Vol] 31.2 g/dL Low 32.0 - 36.0 g/dL [facility] MCV (RBC) [Entitic vol] 99 fL 80 - 100 fL [facility] Monocytes (Bld) [#/Vol] 0.65 10*3/uL [facility] Monocytes/100 WBC (Bld) 8.5 % 2.0 - 10.0 % [facility] Neutrophils (Bld) [#/Vol] 5.78 10*3/uL [facility] Neutrophils/100 WBC (Bld) 75.3 % 40.0 - 80.0 % [facility] Nucleated RBC/100 WBC (Bld) [Ratio] 0.0 % [facility] Platelets (Bld) [#/Vol] 213 10*3/uL [facility] RBC (Bld) [#/Vol] 3.93 10*6/uL [facility] WBC (Bld) [#/Vol] 7.7 10*3/uL [facility] Basophils (Bld) [#/Vol] 0.04 x10*3/uL Normal 0.00-0.10 [facility] Comment on above: Performed By: #### 5 7021-8 ####DERRICK Hall ([id number])[facility] ([facility])[address] [place] [address] Basophils/100 WBC (Bld) 0.5 % Normal 0.0-2.0 [facility] Comment on above: Performed By: #### 5 7021-8 ####DERRICK BRAR L ([id number])[facility] ([facility])[address] [place] [address] Eosinophils (Bld) [#/Vol] 0.18 x10*3/uL Normal 0.00-0.70 [facility] Comment on above: Performed By: #### 5 7021-8 ####DERRICK Hall ([id number])[facility] ([facility])[address] [place] [address] Eosinophils/100 WBC (Bld) 2.3 % Normal 0.0-6.0 [facility] Comment on above: Performed By: #### 5 7021-8 ####DERRICK BRAR L ([id number])[facility] ([facility])[address] [place] [address] Erythrocyte distribution width (RBC) [Ratio] 12.8 % Normal 11.5-14.5 [facility] Comment on above: Performed By: #### 5 7021-8 ####DERRICK BRAR L ([id number])[facility] ([facility])[id number] [place] [address] Hematocrit (Bld) [Volume fraction] 38.8 % Normal 36.0-46.0 [facility] Comment on above: Performed By: #### 5 7021-8 ####DERRICK BRAR L ([id number])[facility] ([facility])[address] [place] [address] Hemoglobin (Bld) [Mass/Vol] 12.1 g/dL Normal 12.0-16.0 [facility] Comment on above: Performed By: #### 5 7021-8 ####DERRICK Hall ([id number])[facility] ([facility])[address] [place] [address] Immature granulocytes (Bld) [#/Vol] 0.04 x10*3/uL Normal 0.00-0.70 [facility] Comment on above: Performed By: #### 5 7021-8 ####DERRICK Hall ([id number])[facility] ([facility])[address] [place] [address] Immature granulocytes/100 WBC (Bld) 0.5 % Normal 0.0-0.9 [facility] Comment on above: Result Comment: Arlen ture Granulocyte Count (IG) includes promyelocytes, myelocytes and metamyelocytes but does not include bands. Percent differential counts (%) should be interpreted in the context of the absolute cell counts (cells/UL). Performed By: #### 5 7021-8 ####DERRICK Hall ([id number])[facility] ([facility])[address] [place] [address] Lymphocytes (Bld) [#/Vol] 0.99 x10*3/uL Low 1.20-4.80 [facility] Comment on above: Performed By: #### 5 7021-8 ####DERRICK Hall ([id number])[facility] ([facility])[address] [place] [address] Lymphocytes/100 WBC (Bld) 12.9 % Normal 13.0-44.0 [facility] Comment on above: Performed By: #### 5 7021-8 ####DERRICK Hall ([id number])[facility] ([facility])[address] [place] [address] MCH (RBC) [Entitic mass] 30.8 pg Normal 26.0-34.0 [facility] Comment on above: Performed By: #### 5 7021-8 ####DERRICK Hall ([id number])[facility] ([facility])[address] [place] [address] MCHC (RBC) [Mass/Vol] 31.2 g/dL Low 32.0-36.0 [facility] Comment on above: Performed By: #### 5 7021-8 ####DERRICK Hall ([id number])[facility] ([facility])[address] [place] [address] MCV (RBC) [Entitic vol] 99 fL Normal 80-100 [facility] Comment on above: Performed By: #### 5 7021-8 ####DERRICK Hall ([id number])[facility] ([facility])[address] [place] [address] Monocytes (Bld) [#/Vol] 0.65 x10*3/uL Normal 0.10-1.00 [facility] Comment on above: Performed By: #### 5 7021-8 ####DERRICK Hall ([id number])[facility] ([facility])[address] [place] [address] Monocytes/100 WBC (Bld) 8.5 % Normal 2.0-10.0 [facility] Comment on above: Performed By: #### 5 7021-8 ####DERRICK Hall ([id number])[facility] ([facility])[address] [place] [address] Neutrophils (Bld) [#/Vol] 5.78 x10*3/uL Normal 1.20-7.70 [facility] Comment on above: Result Comment: Perc ent differential counts (%) should be interpreted in the context of the absolute cell counts (cells/uL). Performed By: #### 5 7021-8 ####DERRICK CHOUDHARYMOTZCARIDAD L ([id number])[facility] ([facility])[address] [place] [address] Neutrophils/100 WBC (Bld) 75.3 % Normal 40.0-80.0 [facility] Comment on above: Performed By: #### 5 7021-8 ####DERRICK CHOUDHARYMOTZER L ([id number])[facility] ([facility])[address] [place] [address] Nucleated RBC/100 WBC (Bld) [Ratio] 0.0 /100 WBCs Normal 0.0-0.0 [facility] Comment on above: Performed By: #### 5 7021-8 ####DERRICK Hall ([id number])[facility] ([facility])[address] [place] [address] Platelets (Bld) [#/Vol] 213 x10*3/uL Normal 150-450 [facility] Comment on above: Performed By: #### 5 7021-8 ####DERRICK Hall ([id number])[facility] ([facility])[address] [place] [address] RBC (Bld) [#/Vol] 3.93 x10*6/uL Low 4.00-5.20 [facility] Comment on above: Performed By: #### 5 7021-8 ####DERRICK Hall ([id number])[facility] ([facility])[address] [place] [address] WBC (Bld) [#/Vol] 7.7 x10*3/uL Normal 4.4-11.3 [facility] Comment on above: Performed By: #### 5 7021-8 ####DERRICK Hall ([id number])[facility] ([facility])[address] [place] [address] Glucose Test strip manual (B ld) [Mass/Vol]on 04-06-2025 Glucose [Mass/Vol] 210 mg/dL High 74 - 99 mg/dL [facility] Interpretation and review of laboratory results Abnormal [facility] Glucose [Mass/Vol] 210 mg/dL High 74-99 [facility] Comment on above: Performed By: #### 2 341-6 ####DERRICK Hall ([id number])[facility] ([facility])[address] [place] [address] Glucose [Mass/Vol] 211 mg/dL High 74 - 99 mg/dL [facility] Interpretation and review of laboratory results Abnormal [facility] Glucose [Mass/Vol] 211 mg/dL High 74-99 [facility] Comment on above: Performed By: #### 2 341-6 ####DERRICK Hall ([id number])[facility] ([facility])[address] [place] [address] Glucose [Mass/Vol] 245 mg/dL High 74 - 99 mg/dL [facility] Interpretation and review of laboratory results Abnormal [facility] Glucose [Mass/Vol] 245 mg/dL High 74-99 [facility] Comment on above: Performed By: #### 2 341-6 ####DERRICK Hall ([id number])[facility] ([facility])[address] [place] [address] Glucose [Mass/Vol] 194 mg/dL High 74 - 99 mg/dL [facility] Interpretation and review of laboratory results Abnormal [facility] Glucose [Mass/Vol] 194 mg/dL High 74-99 [facility] Comment on above: Performed By: #### 2 341-6 ####DERRICK Hall ([id number])[facility] ([facility])[address] [place] [address] MRSA isol Org specific cx Ql (Nose)Ordered By: Monico Vasquez on 04-06-2025 Interpretation and review of laboratory results Normal [facility] Staphylococcus sp identified Org specific cx Nom (Unsp spec) No Staphylococcus aureus isolated [facility] Magnesiumon 04-06-2025 Magnesium [Mass/Vol] 1.98 mg/dL 1.60 - 2.40 mg/dL [facility] Magnesium [Mass/Vol] 1.98 mg/dL Normal 1.60-2.40 [facility] Comment on above: Performed By: #### 1 9123-9 ####DERRICK Hall ([id number])[facility] ([facility])[address] [place] [address] Magnesium [Mass/Vol]on 04-06 Interpretation and review of laboratory results Normal [facility] No Panel Informationon 04-06 [facility] Renal function 2000 panelon 04-06-2025 Albumin BCP dye [Mass/Vol] 3.0 g/dL Low 3.4 - 5.0 g/dL [facility] Anion gap [Moles/Vol] 13 mmol/L 10 - 2 0 mmol/L [facility] Calcium [Mass/Vol] 9.2 mg/dL 8.6 - 10. 6 mg/dL [facility] Chloride [Moles/Vol] 98 mmol/L 98 - 10 7 mmol/L [facility] CO2 [Moles/Vol] 28 mmol/L 21 - 32 mmol/L [facility] Creatinine [Mass/Vol] 0.72 mg/dL 0.50 - 1.05 mg/dL [facility] eGFR - PINF [facility] Glucose [Mass/Vol] 206 mg/dL High 74 - 99 mg/dL [facility] Interpretation and review of laboratory results Abnormal [facility] Phosphate [Mass/Vol] 2.8 mg/dL 2.5 - 4 .9 mg/dL [facility] Potassium [Moles/Vol] 4.3 mmol/L 3.5 - 5.3 mmol/L [facility] Sodium [Moles/Vol] 135 mmol/L Low 136 - 145 mmol/L [facility] Urea nitrogen [Mass/Vol] 11 mg/dL 6 - 23 mg/dL [facility] Albumin BCP dye [Mass/Vol] 3.0 g/dL Low 3.4-5.0 [facility] Comment on above: Performed By: #### 2 4362-6 ####DERRICK Hall ([id number])[facility] ([facility])[address] [place] [address] Anion gap [Moles/Vol] 13 mmol/L Normal 10-20 [facility] Comment on above: Performed By: #### 2 4362-6 ####DERRICK Hall ([id number])[facility] ([facility])[address] [place] [address] Calcium [Mass/Vol] 9.2 mg/dL Normal 8.6-10.6 [facility] Comment on above: Performed By: #### 2 4362-6 ####DERRICK Hall ([id number])[facility] ([facility])[address] [place] [address] Chloride [Moles/Vol] 98 mmol/L Normal 98-107 [facility] Comment on above: Performed By: #### 2 4362-6 ####DERRICK BRAR L ([id number])[facility] ([facility])[address] [place] [address] CO2 [Moles/Vol] 28 mmol/L Normal 21-32 [facility] Comment on above: Performed By: #### 2 4362-6 ####DERRICK Hall ([id number])[facility] ([facility])[address] [place] [address] Creatinine [Mass/Vol] 0.72 mg/dL Normal 0.50-1.05 [facility] Comment on above: Performed By: #### 2 4362-6 ####DERRICK Hall ([id number])[facility] ([facility])[address] [place] [address] Glomerular filtration rate >90 Normal >60 [facility] Comment on above: Result Comment: Calc ulations of estimated GFR are performed using the 2020 CKD-EPI Study Refit equation without the race variable for the IDMS-Traceable creatinine methods.https://jasn.asnjournals.org/content// N.8318844246 Performed By: #### 2 4362-6 ####DERRICK Hall ([id number])[facility] ([facility])[address] [place] [address] Glucose [Mass/Vol] 206 mg/dL High 74-99 [facility] Comment on above: Performed By: #### 2 4362-6 ####DERRICK BRAR L ([id number])[facility] ([facility])[address] [place] [address] Phosphate [Mass/Vol] 2.8 mg/dL Normal 2.5-4.9 [facility] Comment on above: Performed By: #### 2 4362-6 ####DERRICK Hall ([id number])[facility] ([facility])[address] [place] [address] Potassium [Moles/Vol] 4.3 mmol/L Normal 3.5-5.3 [facility] Comment on above: Performed By: #### 2 4362-6 ####DERRICK Hall ([id number])[facility] ([facility])[address] [place] [address] Sodium [Moles/Vol] 135 mmol/L Low 136-145 [facility] Comment on above: Performed By: #### 2 4362-6 ####DERRICK Hall ([id number])[facility] ([facility])[address] [place] [address] Urea nitrogen [Mass/Vol] 11 mg/dL Normal 6-23 [facility] Comment on above: Performed By: #### 2 4362-6 ####DERRICK Hall ([id number])[facility] ([facility])[address] [place] [address] Albumin BCP dye [Mass/Vol] 2.9 g/dL Low 3.4 - 5.0 g/dL [facility] Anion gap [Moles/Vol] 13 mmol/L 10 - 2 0 mmol/L [facility] Calcium [Mass/Vol] 9.3 mg/dL 8.6 - 10. 6 mg/dL [facility] Chloride [Moles/Vol] 100 mmol/L 98 - 10 7 mmol/L [facility] CO2 [Moles/Vol] 27 mmol/L 21 - 32 mmol/L [facility] Creatinine [Mass/Vol] 0.58 mg/dL 0.50 - 1.05 mg/dL [facility] eGFR - PINF [facility] Glucose [Mass/Vol] 161 mg/dL High 74 - 99 mg/dL [facility] Interpretation and review of laboratory results Abnormal [facility] Phosphate [Mass/Vol] 2.9 mg/dL 2.5 - 4 .9 mg/dL [facility] Potassium [Moles/Vol] 4.6 mmol/L 3.5 - 5.3 mmol/L [facility] Sodium [Moles/Vol] 135 mmol/L Low 136 - 145 mmol/L [facility] Urea nitrogen [Mass/Vol] 11 mg/dL 6 - 23 mg/dL [facility] Albumin BCP dye [Mass/Vol] 2.9 g/dL Low 3.4-5.0 [facility] Comment on above: Performed By: #### 2 4362-6 ####DERRICK Hall ([id number])[facility] ([facility])[address] [place] [address] Anion gap [Moles/Vol] 13 mmol/L Normal 10-20 [facility] Comment on above: Performed By: #### 2 4362-6 ####DERRICK Hall ([id number])[facility] ([facility])[address] [place] [address] Calcium [Mass/Vol] 9.3 mg/dL Normal 8.6-10.6 [facility] Comment on above: Performed By: #### 2 4362-6 ####DERRICK Hall ([id number])[facility] ([facility])[address] [place] [address] Chloride [Moles/Vol] 100 mmol/L Normal 98-107 [facility] Comment on above: Performed By: #### 2 4362-6 ####DERRICK Hall ([id number])[facility] ([facility])[address] [place] [address] CO2 [Moles/Vol] 27 mmol/L Normal 21-32 [facility] Comment on above: Performed By: #### 2 4362-6 ####DERRICK Hall ([id number])[facility] ([facility])[address] [place] [address] Creatinine [Mass/Vol] 0.58 mg/dL Normal 0.50-1.05 [facility] Comment on above: Performed By: #### 2 4362-6 ####DERRICK Hall ([id number])[facility] ([facility])[address] [place] [address] Glomerular filtration rate >90 Normal >60 [facility] Comment on above: Result Comment: Calc ulations of estimated GFR are performed using the 2020 CKD-EPI Study Refit equation without the race variable for the IDMS-Traceable creatinine methods.https://jasn.asnjournals.org/content/early// N.2330616419 Performed By: #### 2 4362-6 ####DERRICK BRAR L ([id number])[facility] ([facility])[address] [place] [address] Glucose [Mass/Vol] 161 mg/dL High 74-99 [facility] Comment on above: Performed By: #### 2 4362-6 ####DERRICK BRAR L ([id number])[facility] ([facility])[address] [place] [address] Phosphate [Mass/Vol] 2.9 mg/dL Normal 2.5-4.9 [facility] Comment on above: Performed By: #### 2 4362-6 ####DERRICK BRAR L ([id number])[facility] ([facility])[address] [place] [address] Potassium [Moles/Vol] 4.6 mmol/L Normal 3.5-5.3 [facility] Comment on above: Performed By: #### 2 4362-6 ####DERRICK BRAR L ([id number])[facility] ([facility])[address] [place] [address] Sodium [Moles/Vol] 135 mmol/L Low 136-145 [facility] Comment on above: Performed By: #### 2 4362-6 ####DERRICK BRAR L ([id number])[facility] ([facility])[address] [place] [address] Urea nitrogen [Mass/Vol] 11 mg/dL Normal 6-23 [facility] Comment on above: Performed By: #### 2 4362-6 ####DERRICK Hall ([id number])[facility] ([facility])[address] [place] [address] XR CHEST 1 VIEWon 04-06-2025 XR CHEST 1 VIEW Normal [facility] XR Chest Single viewon 04-06 [facility] MM[facility]AL [facility] MMODAL [facility] Work Phone: Radiology Study observation (narrative) [facility] Work Phone: XR Chest Single viewOrdered By: Odalys Calvert on 04-06-2025 [facility] Work Phone: CBC W Auto Differential pane l (Bld)on 04-05-2025 Basophils (Bld) [#/Vol] 0.05 10*3/uL [facility] Basophils/100 WBC (Bld) 0.6 % 0.0 - 2.0 % [facility] Eosinophils (Bld) [#/Vol] 0.18 10*3/uL [facility] Eosinophils/100 WBC (Bld) 2.2 % 0.0 - 6.0 % [facility] Erythrocyte distribution width (RBC) [Ratio] 13.0 % 11.5 - 14.5 % [facility] Hematocrit (Bld) [Volume fraction] 38.9 % 36.0 - 46.0 % [facility] Hemoglobin (Bld) [Mass/Vol] 12.2 g/dL 12.0 - 16.0 g/dL [facility] Immature granulocytes (Bld) [#/Vol] 0.03 10*3/uL [facility] Immature granulocytes/100 WBC (Bld) 0.4 % 0.0 - 0.9 % [facility] Interpretation and review of laboratory results Abnormal [facility] Lymphocytes (Bld) [#/Vol] 1.05 10*3/uL Low [facility] Lymphocytes/100 WBC (Bld) 12.9 % 13.0 - 44.0 % [facility] MCH (RBC) [Entitic mass] 31.4 pg 26.0 - 34.0 pg [facility] MCHC (RBC) [Mass/Vol] 31.4 g/dL Low 32.0 - 36.0 g/dL [facility] MCV (RBC) [Entitic vol] 100 fL 80 - 100 fL [facility] Monocytes (Bld) [#/Vol] 0.66 10*3/uL [facility] Monocytes/100 WBC (Bld) 8.1 % 2.0 - 10.0 % [facility] Neutrophils (Bld) [#/Vol] 6.17 10*3/uL [facility] Neutrophils/100 WBC (Bld) 75.8 % 40.0 - 80.0 % [facility] Nucleated RBC/100 WBC (Bld) [Ratio] 0.0 % [facility] Platelets (Bld) [#/Vol] 217 10*3/uL [facility] RBC (Bld) [#/Vol] 3.88 10*6/uL Low [facility] WBC (Bld) [#/Vol] 8.1 10*3/uL [facility] Basophils (Bld) [#/Vol] 0.05 x10*3/uL Normal 0.00-0.10 [facility] Comment on above: Performed By: #### 5 7021-8 ####DERRICK Hall ([id number])[facility] ([facility])[address] [place] [address] Basophils/100 WBC (Bld) 0.6 % Normal 0.0-2.0 [facility] Comment on above: Performed By: #### 5 7021-8 ####DERRICK Hall ([id number])[facility] ([facility])[address] [place] [address] Eosinophils (Bld) [#/Vol] 0.18 x10*3/uL Normal 0.00-0.70 [facility] Comment on above: Performed By: #### 5 7021-8 ####DERRICK Hall ([id number])[facility] ([facility])[address] [place] [address] Eosinophils/100 WBC (Bld) 2.2 % Normal 0.0-6.0 [facility] Comment on above: Performed By: #### 5 7021-8 ####DERRICK Hall ([id number])[facility] ([facility])[address] [place] [address] Erythrocyte distribution width (RBC) [Ratio] 13.0 % Normal 11.5-14.5 [facility] Comment on above: Performed By: #### 5 7021-8 ####DERRICK Hall ([id number])[facility] ([facility])[address] [place] [address] Hematocrit (Bld) [Volume fraction] 38.9 % Normal 36.0-46.0 [facility] Comment on above: Performed By: #### 5 7021-8 ####DERRICK Hall ([id number])[facility] ([facility])[address] [place] [address] Hemoglobin (Bld) [Mass/Vol] 12.2 g/dL Normal 12.0-16.0 [facility] Comment on above: Performed By: #### 5 7021-8 ####DERRICK Hall ([id number])[facility] ([facility])[address] [place] [address] Immature granulocytes (Bld) [#/Vol] 0.03 x10*3/uL Normal 0.00-0.70 [facility] Comment on above: Performed By: #### 5 7021-8 ####DERRICK Hall ([id number])[facility] ([facility])[address] [place] [address] Immature granulocytes/100 WBC (Bld) 0.4 % Normal 0.0-0.9 [facility] Comment on above: Result Comment: Arlen ture Granulocyte Count (IG) includes promyelocytes, myelocytes and metamyelocytes but does not include bands. Percent differential counts (%) should be interpreted in the context of the absolute cell counts (cells/UL). Performed By: #### 5 7021-8 ####DERRICK Hall ([id number])[facility] ([facility])[address] [place] [address] Lymphocytes (Bld) [#/Vol] 1.05 x10*3/uL Low 1.20-4.80 [facility] Comment on above: Performed By: #### 5 7021-8 ####DERRICK Hall ([id number])[facility] ([facility])[address] [place] [address] Lymphocytes/100 WBC (Bld) 12.9 % Normal 13.0-44.0 [facility] Comment on above: Performed By: #### 5 7021-8 ####DERRICK Hall ([id number])[facility] ([facility])[address] [place] [address] MCH (RBC) [Entitic mass] 31.4 pg Normal 26.0-34.0 [facility] Comment on above: Performed By: #### 5 7021-8 ####DERRICK Hall ([id number])[facility] ([facility])[address] [place] [address] MCHC (RBC) [Mass/Vol] 31.4 g/dL Low 32.0-36.0 [facility] Comment on above: Performed By: #### 5 7021-8 ####DERRICK Hall ([id number])[facility] ([facility])[address] [place] [address] MCV (RBC) [Entitic vol] 100 fL Normal 80-100 [facility] Comment on above: Performed By: #### 5 7021-8 ####DERRICK Hall ([id number])[facility] ([facility])[address] [place] [address] Monocytes (Bld) [#/Vol] 0.66 x10*3/uL Normal 0.10-1.00 [facility] Comment on above: Performed By: #### 5 7021-8 ####DERRICK Hall ([id number])[facility] ([facility])[address] [place] [address] Monocytes/100 WBC (Bld) 8.1 % Normal 2.0-10.0 [facility] Comment on above: Performed By: #### 5 7021-8 ####DERRICK Hall ([id number])[facility] ([facility])[address] [place] [address] Neutrophils (Bld) [#/Vol] 6.17 x10*3/uL Normal 1.20-7.70 [facility] Comment on above: Result Comment: Perc ent differential counts (%) should be interpreted in the context of the absolute cell counts (cells/uL). Performed By: #### 5 7021-8 ####DERRICK Hall ([id number])[facility] ([facility])[address] [place] [address] Neutrophils/100 WBC (Bld) 75.8 % Normal 40.0-80.0 [facility] Comment on above: Performed By: #### 5 7021-8 ####DERRICK Hall ([id number])[facility] ([facility])[address] [place] [address] Nucleated RBC/100 WBC (Bld) [Ratio] 0.0 /100 WBCs Normal 0.0-0.0 [facility] Comment on above: Performed By: #### 5 7021-8 ####DERRICK Hall ([id number])[facility] ([facility])[address] [place] [address] Platelets (Bld) [#/Vol] 217 x10*3/uL Normal 150-450 [facility] Comment on above: Performed By: #### 5 7021-8 ####DERRICK Hall ([id number])[facility] ([facility])[address] [place] [address] RBC (Bld) [#/Vol] 3.88 x10*6/uL Low 4.00-5.20 [facility] Comment on above: Performed By: #### 5 7021-8 ####DERRICK Hall ([id number])[facility] ([facility])[address] [place] [address] WBC (Bld) [#/Vol] 8.1 x10*3/uL Normal 4.4-11.3 [facility] Comment on above: Performed By: #### 5 7021-8 ####DERRICK Hall ([id number])[facility] ([facility])[address] [place] [address] Glucose Test strip manual (B ld) [Mass/Vol]on 04-05-2025 Glucose [Mass/Vol] 244 mg/dL High 74 - 99 mg/dL [facility] Interpretation and review of laboratory results Abnormal [facility] Glucose [Mass/Vol] 244 mg/dL High 74-99 [facility] Comment on above: Performed By: #### 2 341-6 ####DERRICK Hall ([id number])[facility] ([facility])[address] [place] [address] Glucose [Mass/Vol] 219 mg/dL High 74 - 99 mg/dL [facility] Interpretation and review of laboratory results Abnormal [facility] Glucose [Mass/Vol] 219 mg/dL High 74-99 [facility] Comment on above: Performed By: #### 2 341-6 ####DERRICK Hall ([id number])[facility] ([facility])[address] [place] [address] Glucose [Mass/Vol] 223 mg/dL High 74 - 99 mg/dL [facility] Interpretation and review of laboratory results Abnormal [facility] Glucose [Mass/Vol] 223 mg/dL High 74-99 [facility] Comment on above: Performed By: #### 2 341-6 ####DERRICK Hall ([id number])[facility] ([facility])[address] [place] [address] Glucose [Mass/Vol] 194 mg/dL High 74 - 99 mg/dL [facility] Interpretation and review of laboratory results Abnormal [facility] Glucose [Mass/Vol] 194 mg/dL High 74-99 [facility] Comment on above: Performed By: #### 2 341-6 ####DERRICK Hall ([id number])[facility] ([facility])[address] [place] [address] Magnesiumon 04-05-2025 Magnesium [Mass/Vol] 1.97 mg/dL 1.60 - 2.40 mg/dL [facility] Magnesium [Mass/Vol] 1.97 mg/dL Normal 1.60-2.40 [facility] Comment on above: Performed By: #### 1 9123-9 ####DERRICK Hall ([id number])[facility] ([facility])[address] [place] [address] Magnesium [Mass/Vol]on 04-05 Interpretation and review of laboratory results Normal [facility] No Panel Informationon 04-05 [facility] Non-gynecological cytology m ethod studyOrdered By: Benjy Paiz on 04-05-2025 Disclaimer i4juuGIxHBYefXGtYpEg MDAwXG Qaj6rtFAUqoYOpPaVuAwTaDzQg LxuizFGbDFXgOqPgy6qgd153qH Sbf4xbTYZbKbS4oKFwDDIgjEwo rwc4rFvbAlQtKVOqd2jwinYuNw NlPOLnOQYmWEMjqBimksu1gAui AtSlQIQtmLtoQQWrDDu5mF33WG YbgT7rvULiXQfeoqMpAjF7QAad CBSvBwG4KZCsvCIiEYHjP7gsOD RpEOmhOZYnHUjhcSMqCUR1cHar z9S8tECovFDoxKhzXsJlIrScPd KDk9MiIPa7nZuzF4TfIOOrRbX6 eJPqBYPfRSlnWBJkFOOyuyL5oQ diitWhw79vtFZvHTOpWRBfZdCo F93kow3rbW87jP26LRsxexY6eU Noq7Qic04tb763hB2dgIXfBGL4 AGXpDOOvsJJgQJVyEPP9ALSurM ScX5yaPCZqJG0neggjYUgbVNnm BTPofAH5DWEhqCRuD6KqBRDsUX vwAUVkiun7EdLfIx6ciRPweGna EObto8mwi9yqwLHtNmu5OBEaCi WwLmfgAJhsv6Ynp3qnUNVopz5v QSV2zRQtlKdid9G3gSHcMCGfuJ QvmiLyVSWnIcF8FAmbVF7tzg21 RYNuPJW7gx8vvPQxwUndudHqeV LuDEmzO7EsCSVew956RVGdD7Th UFRfh8G2hcTcWxJvURKqfVG5hx M0XKLuULu7zUKqchD7yqAutZMk M8hpwY0zYIYkUS9kycjir2qcOU syVQruWGWcqTG4ljI6JVUrxIGf N5WzfX3fRKBrLUpsUYNzojr4Jc PcBi5xqNIyqYxjXToaAscmGCyb XHBnbmNvbnRccGduZGVjXHBsYW luXHBsYWluXGYwXGZzMjRccGFy RUtnx7AvecWvhFddJVUvJEP9Tc S2DZZ9TDH9XEy9nQGxTsJavLjq JKzeSUN9WcTnPZv5gZMoMuBolO l3DMMnUCY2TRe8GMa7hYL2LYCv rAh0TdTeZYG4WnixWEv9tUm5WY BohKe1UwAxUWH3XYWkREUboOtw gPrmqY6gGcPbXxPyJzcwIW8vPJ OfU9jnwTHyJWQbZMFcX9pxArYg lS4lqLvvYSbeGyNsCoNzTaVNdn Nrs2QydC4pJZKoYkC6eRZjsrNi C2DsjTFwsYSzGOK7ebRkBBKwc6 AyWZUqa7W1reVxjfE5yGhqKLQz NQNljHPkLH1ADLPdTPVtPWVdck EqaB7eHMAwe51by89ikfFhBDVa anQdJZZmSAPpvD8pQfUvWY2qfB i0ZBSfmIPsrGRcEiVvMXYsGG49 kcOuTBFWG8UdVqMlYGANN1PufZ B0UHCno6GbShNjllQmfPUwpaMj QM8oENSpuEPnfiGwFSD7BVPfTP VKIbQfJZMdg2ChUL1gIHRwaRtj DZPhtB9kw1ZaVADhd32pXBNQlQ UfCYGcy8OztYJml0VcSUHyYQOp kO7yOURsGX4wTMMjHIpmOYHyrg Swfm1nchUfBWBeYWMwO0Gxzlnh xFwigbNcLIUgni6dxiAeCQT9RL EpLWLCGVNdobMjAB04PN2uCAQb kDzumW6gwUWukOALmxr6UVHocK B8BSbie7NaxDBitxNAuTI6FWeg qyYcNMJdtFSlfJEJYQ20ASAuJC JeDKKWMXSnLG4mbqLmk2MvuqCf cHgzMMN0rJhrXKCgl0FktB3sU1 8xeAoqy8ZysKCsreNoAAIrNDEe NoQJQAXaavigxc0fYZzxlsN2QD X0QSwdKWEiYQEuXz2mIJWbrB6l U1FpINB9vwKzd9OmXwFWkJUygK 87uFUtpm16HCCmORMzJ4SuCBYh CJIrTLmznvCgmFyzZKDge28ymC MxwfOks6VdsbKlAYNvN1qzFNCz lMNidWAcd8HkbY7tgPKcbcTvDD C5iSLaDBFmnD6uKUHymGfmLCCn uO2qG4LdVOjwHv5hVUUllktrSK 1uim59HW0pdlBoZC4zydXrNA56 ohJeK3hLNMjpGRQxtVDldNvmvL TkQHKoONVgvbOdax0jePhasKYm k82voFL3vBR0XSSsrY2lI7RjAA arGu8rTCWoxqemhLRqeZykWu7f OEBbULYea5MavMMlh0QsSIPdHK Fch0ChMKDel7h8wKJjgCEsu7Vn kPX0WIEou6UvxPg7YHTmpgZqij DpEKVotvVuD59uoBZmkXUan4gn G7uwy4GqvV8zJDPitZIxn7LwwW O2GHo7IfxpPAF9 [facility] Work Phone: Laboratory comment Darío (Report) a1ezgBKjCJNfe0ngKRNkxXCeHg EwMzNcZnRuYmpcdWMxIHtccnRm MVxhbnNpXGRlZmxhbmcxMDMzXG U7rkUcODPfXUS4WSG7IyBvj7Y3 ATEeDbOfSSQjAE3jqQsjYDQzPI 4dUGZfQ8thvL8tacv2NvOcLCLh LnS6TFXjjbZ4Dmb0BTLeDRxae5 jdh3VeA8Cca7AzWPa1zMedBiQn IMCal4gpfmJkLwHsNKCaYZMuSS QbG31cCVSSW720n5uex5jqgtOj dNG1YHGkPIM7NEjmogZorvR5HX xdoBXmOyL0UNuflfElYWsmuuKh jpBhRel7WLQqT220ZAE6rIktn2 pwUDQ6ALLuFLDsHdRlDe4onPIk S584GLDhMRFRFHKgeHc4QNGrpi MuaxGreYJCz839J991m9ggLAYs moMxqWjUubcky9swI124HFLmnN BvqrEuAoEfWDPuoWZpxCN6YJPc TR3vaxkdJXcwXBgmFQHcljQ7OP KkqXOlR2NjIEZnER1yjeuzGDD9 NRxfEFRdRRQ5XuSzMURdy7Dfow l1CiXqhe4kxw85OQB9h0XywTbn JGH9UAY5IwFrVp9wxBCyNUKwPL 6hBmDyvHJjRGIgvy42hZwmFFxb efPmqW7sOvPwSPAlnTWpGIIeXH 1djROoPATxoM2iyaulVIZkPiYn gxwkQIDxvGwkdmDwVi3abNzwUC D6HDuaK1ffyH2bXvQ0KFahS7mf yE9qJRe6FPxcaLQ9IJKtuU7nHW 0svrolq0jrWAbvDMvyAESvnvV8 ciU3YYYhrZJxX5QniM7aDKBcEZ 9tblsxd2kjRDU8QXxyFOYdUEK2 GwQpDXBfw7Nymtz1WePuu6KzhO MtBWteV92jo117OMQwxcFoU7yt oWDskfejeIVmgcasNHkdugY5FF FsXHBsYWluXGYxXGZzMjBcbGFu ZzEwMzNcaGljaFxmMVxkYmNoXG XyJDzjQ8dmWyNuR8KtDMChPuKy X5qpPUHgupjcvR4tfJtjzOs1RR VbnxWoyjVzDOB5BNPtaAWeqyAZ pmazAIIWNKC1DCEFObLAVYXDH0 FMIENFTlRFUiAxMTEwMCBFVUNM SUQgQVZFXHBhciBDTEVWRUxBTk RhD9vkXFTwLXKfQRrxJlweaPBb blxmMVxmczIyXGxhbmcxMDMzXG rzD4nqGaAkWGCxnBozMTyet9Za ALBbXQYaZjEloKBooL41RMA8Nb Qsz3I8DCYxTzSvLVVdJW3hiNko IPToOG3sHSAbC6fftW9qojv7Os VeCVErHwP0LJSdfxX3Rdc5EKYb OVutu7hcf5MvL1Irj4GrUWg5mL nvZnDpWMVzz7tdjfWbKwAfVLGk UCPtVHXiO99gKLZYY207k0jwf2 lsubSoaXT4BYQyTOK8OWoberZw dzP3VPmymEBbIxP6XMfusjVgPG beomUoaqVaNuf4LBJgJ042ICH8 rGewc5olCUO2YENhABGsNjMnKv 0avYOtO619BIWdISXFFBPufLt5 AGUhxoBcytVmuCXFl310B247v0 adDIUbovAviBkVgqgzw7prQ734 XHBhcGVydzEyMjQwXHBhcGVyaD D7GIHpJU6eotkfZzNpIV0okish DpZoRE2cmqb5BxNlWZ0dipaiJm LqXTxcAOUfzdmxNbWrKs2ayROq nIX4OVanu9nfo2erlNDmMkd5GM VjFiTwWchnFMtcn4Ujd1dlCLPu qy4lGIY0aXMubRbwt7X8iEOpZZ JetDCkfpSxBHRcZhK8RCpvKZ9e bj50YVXeSGP8kb8ivHOyjIdugo JcdWKrJOurZ7GbJWRbf025PXBh W4NkVOKjl9R6hcZzPcRaUBZgkI M7mtG9EXBoRIc3dZLhbvL8joAo xEWuP0njjK4qVsIqyUEgP0ZafA 0iVwGekWJjS1PodZ5fQyCuiQJa Z2TbfL4zWsDwwLZzIHYezCM9PZ nfe348LJH8BxCwIOQju1DoE9Lx sVatO53bgCfiW33kSOLwhOvfeE 7zuAuhnI3lMjSnOnIsKJxacWfd bGFpblxmMVxmczIwXGxhbmcxMD BqMSyxH4plBzZaWLMrfJkzZHht w0ZrTFTyBIDoXfTvUlntaCewDU UhR52zcWHyFSSeleQ6oSucDTWn kY1pkLseqLiuKXspXAx4aCG4TY oas9AiH2AyjIIzoQvtmJAcXKPs JN2ju7dvDyW9nBItCblzQKosND 00ZKSuhmK8CSZjd03lHMgnV11e a7tnSYUwxkYaVsrsniK6tHW6KJ BuQIfjfGR7TWRgZXOtNWiuEXU1 cStpBYNpe5FoOJvfAUD6rU== [facility] Work Phone: Laboratory comment Darío (Report) e1djwVBkAYZjqFJrSeQqHDApIW Mqz4lvUZYyjAPjEuDbMsDlNeRw NbmlsEYoMFLrPcBvf4dez316pO Lqa7fsEWMsRtR8uSUhVYQmV39y SSVZC634EVJzRYbfr4vdu5WiZM AvmXJjk7O3MJDMLRuxWZOELXk0 aSjoC36il3R8TfsjE3giAEXuPE XxU7GkNI9xOVYvMeo0VKB9MHD6 TBIkGBYjB2UdBE6kZBRmaMGuYI u7t4hnoEguUNZlIQJ8w1iiNIbr unWuMP6rxh1jlWz4x9wgyxEqJK YmRBFluDGSOQSyO5UxaLijYa6o gMo0dKimWhmrFVW5Osk9WE9ejb 45fvy7mFyiABPzdllpSeV7SVrq GMHfmywtTUm6QUuiJNArsCP5UA TwqYDoY2KuTTTkNA6rnvo1ZLC4 ZYrtJFPuZtX0XBOpeSAvBVKjvQ lhOHbfm484SIX4XwWcWN7vC6Ne e1Y3cN1ciUPuXJUmcZEdOkNsGQ Hfhu4ajXDlFWmhw0IiKYB2xqP5 wMCvoGNbYQQnYK10Rmfcr8HzRw ncLGN4FDSkhtYhl2Ewq1lmKvPu sgBkI2slQ4IrNMAdRGXeLSWwXo CxfkQvv7Bjm4DuvWNdnFt2i5ox QFXbHBTekUmbw6qpFUO9DEAdJ4 B6fEPpk8asEJgcOIMegXA5eoS1 RNTnoOVbL9DajS1vSLKqUH5hwp f8m7ihZBR3FTpqDIYxHfO2eyL8 GLFvwPRcLEDjvGadPAfgj660ZR L6KmPhDAAvj4RbE9QnnTvlW03n hTfjL70mSFGnpQsurG1zdQlaaG 5cZjBcZnMyNFxwYXJkXHBsYWlu XGYxXGZzMjBcbGFuZzEwMzNcaG qhvYgiSIzmGvMaGOXvQQmrS2if ZjFcZnMyMCBBMQlTbGlkZXMgT2 1cqEQtTe8rPehrC0iqFMahTVJe BEXmCGaDRTApG9LemO0sExnWIh BUaGluUHJlcAlccGFyIEEyCUNl pTvqUvlnV0gXIHWewpVPFa5gJM nwMEzvjGnxyD1cZkRjHkHpXuzg CW2oNQHmY6wwlECoZRXoNJGlH3 whCmAijT7tdPesDKogpzZeNZUk cn0= [facility] Work Phone: Pathology report Cancer Narrative [facility] Work Phone: Pathology report final diagnosis Narrative x8tmfHYaLKBqjCHuANYvQucxaq OvHDTzqQSbC4SwpkrpPZpkZF0l XN4fjYnhhOVcoPLsCWEcJcLnl9 syg906fUMyv9enJMIDwejhfOe1 h9fqCYPPFOpwGOGNFQj6dUlwC9 9gm1N3WtaxW4yyIPFoQXumlqIm oeT6VDYcoTIaCFrjctCrDRalrj VbcyFlSax3UMC9pXktFNSlxxbw UqL8AHgiEVAazwdtGEy4OGitJQ QmeJY2SAHzbAAxJ0RnGLTtGT2x owy7QBM3GZzsYQKyGpC2SEZysI FaACQkmHlaDGvpj931RUY5MmYm YRKnk0C0nwFzQoAeVWLpjEL3hi E4IMFuBP2sbdhzc1wiCHxfMMof UCVjyiI5tjX2OLWejVNoI7JvkG 7wUFBgCZ6fmwcny7rvTWJ1KNnq YXJkXHBsYWluXGYxXGZzMjBcY2 YxIEEuIFBMRVVSQUwgRkxVSUQg KaqUDABsU3ySEWgbEgWjLIHHIY OZHN1KZKVSUeDyX6KMKRJTFS6W SpsyuFKzKJ2fJhMZTYGAZEcIJB QLEZLJUQcWKzLPLsNLNM6OAKNH RpZIQWTGJZJTMEInZU9EPTEWF5 9JKchETY7PDMVUSbPITLFNWClA NVFLBkKoU2ZLRW3TTPAxBRJqtm a8aLTnaCfsZFKqD5LpEC5zgVNp OS2hdPJ6ANxgyLCef6J5QQcvcy F9XNGqIJVhhmFsae0sGFBqdvH2 rRNqY0FdmRSibX7oki6sMZhpHN MkrQrov0kqErKeJYFdTIIyIZfw P6hewMxsbNCdA3X1eNNsZIUxQ6 AhoOEfdG4foAyyKOMsOIOepOWs ElJlKDWxkAraMCLQCQ6AVAKzQX WcmEIvgFiicY7wIDEgKFCJRx14 HA4xVNYwNOjdQPUxkJfig4vyBh JkdY02fj4hzYHapoOyOORwVK7z R6U9oVUvRvNAJzQeCxaqNS7FXZ McEZEulVNbCEdiP6pcjRIamw85 SDVtUOENXEWjBB6yUzNoIXVnr0 7wNEOsTBTrASrpqzHepPxePoz3 OLGdp9m1fGLtQWvdwGPrb3H5AV dcwC0wTMDfmaGnw94pC2nrcwUu MAIDIF3dCLYsCGWkukCdbAJzHA 1vlMLoXBCrzwWxa1ztzwuyzUKc bzMaXX3bPMHvYJYwLXlrmuXlzW njSzd6uN0zYTdmpQXgn0Ayh2b2 qYLgcOyfHv7xPK9ykf7qhH4xSI djU7FVZDShzj0mhIBrWOUex5Hs kqRqaB0yHS9gBEVrDTOtwP4kjK 7txqYsnqPgI05yj2xlAYHrZSFc jeQ9LuUuB1kianOuIt0fAHHiZG upU18tv0hiJH1fYO4voVhnmeNh H2umKSDeyp9= [facility] Work Phone: Pathology report gross observation Narrative w9lvrVRsZMDkvDNEUEOzDZWzYK 6dyNbcpMq5xUtpSIRrckI0lEOr SRmnv3lsUTT3e6vofaOGBblhGV GaKrffKGQbseejIoI1FYiwXMHb ofruDIz2ZTjuYORwlNU7FIOwiV PhV6RyFLFhUA8msnl1GHG1FQza HZDcPdF4WPUvWTq0EMJnvmS9Pd cuTJs3SXLzOWIqzHBnm5I6ZQlr g3lek3ObECJhWJp1oM6Lr9olDx xwV6nldwXtmTZzHiO0rDGbRMBh D50rMCDTH627ZZulf3PgeMIzXV q6RZftZAYfO9CoN2GxWRaxWdZt YHjoQEHmUMWaAGduZEAmC6LQBD JaGce0FJO2RhWjSXm5OSg8HKHG IWW8IYd1HQq6FEy6OAl7BHbras cdDDa8AJDtQZrnqGLjYF2fpNnn TpqsaTxto7QdsRYcKIKwQBnujK QgNTEwMDIgXFxkYiBPVlIgIiAy NXwsIZG8ZWMyJCn7EFguT8NLNR YwNNKaCyR6ABGiSrW7QPb5IZDL Li8eVQJ1CjZ9TaH9DOJ2RGNnUr BcXHQgMiBcXHNzIDMgXFxmbCBc AJ7twRaoCVGiSG9RWJEvYEemEQ fahdhvOZOoUGTsKkKtQL1tURbK VVJBTCBGTFVJRCBSSUdIVCBTSU RFLlxsdHJjaFxmMlxmczIyXHBh njMHEfwcMIJmNZ0OPNDvKTrfRG x7lnOtYWdllsilRFMfKrHcWKXc G72nc5MEz3BrRD6UMDu4zxMgxr PTHqichuGoISDgB4TchpPvUVZt MCBtbCBccHJvdGVjdHtcZmllbG F9SMnnLzrvdH2anQENSEDAAruA RrtswuZgNS0DUWUQCtIKEM83Tg HzWAM2PAqjhOaqTbrousNekHFe BdMEuB9ytMSxsdiaVjjemXI2TF rqDgwlnQ1ffMMKWZJZPjjJUbzh shPoDH0EZZXQWG3QzSIhDeXcrR N4DB61NDUoWVEjfPIcILuyV300 KMRsJTqyRWn8dyUzVShrydibLC VfSuVqYQxjjs15ZXI0o6oceZBa NKifWvxzgAHvmvH1VAhJELKNFC oAKoPaUE2aRWmAY0PLLMgBPhih LQWeHVjwnZM4f4qvgBZux6w4RK zzVVJ1xIPnd1KcmWdrDvxpnJW6 PCdbIkjmyY2yhQVZABCKWmdYRy xmsaWmNR2CWCBGBJ8BjNIwIsE8 uFR4Au42MLPbICNwtOJuVAkiS1 70YVDwKJjvRKs2qmAgTUbkimwu ZHZjMkUeKIMwtHgtELsntv07UJ B8r0pyzFBxXDxxNofiuRHtxbT8 VUwRYGZRMSzIXpTqFM2dZOuCM5 PUHDgEAeimUISqWMpddKR9s5bp gGPjr1y1PLeiSEZ8cWejtAr5FS SlTLeam4szDQNzCWoot6VeOCtQ HHPIRY5DCE5ruSU7PUrDHIAEJP tbGSUlAGscuWR6q1jrlWQai7p2 ZNbmLTA4jDlsyNIxtbsmnWXflO coGC1fJUdmwpJwDXTcACY5mRJy FNQqdG3jb9FztodrIGIesPMkeU WwuSgqZtvnsCI5OKxfQapfnI8v iOYXKKTULqbYFfomojVbRJ5MQV AISmYZBG42FnF3SXK8RIj4uVul CorwyvOptFQmJmRVxA4ck5F8oP G6ATFkUSsyj2hwIBUqJJaul3Rq SSwNNIZEQS0QNC3dbRE9ZSjALP JPSYflIQK3VZw4aCB8j0kinOGv t2q7PZulQSL0kVepzNLjgtmszV ExcKgnVT3dXGcsdbVwPT6eAAPn ncZZIrmlPEInOPZtsGBBv0CyJB UXVdiniXxxSdQroDZxOhV6JDVx yESrPHV9IX0wcSgjGXWiK5XmZ0 NhjtZ3PGImfbYXJimqMGBjCJ3J XGZzMjQgDQp9 [facility] Work Phone: Pathology report relevant history Narrative k9ijwHSrQDSky6ddILShvJLnMh BdIaLmTxQnTre3ZNWfluP8Nhw5 IRVnMOsudI1fTXKiFJerG4drqp SupURkVLXeAJg3iN8aeDxshA7b GrNiIyDfPZPfqFL4dBJyHJ3luj UMH9FREsBwUBWtpsjgPnBhPYQq e9RzhlZmbk5rJWL3fFTyQDJtuL G5XZEhxASbvXX1zcPyQUCzZdAo eJ1kc2jrOLNsdU== [facility] Work Phone: [facility] Work Phone: Renal function 2000 panelon 04-05-2025 Albumin BCP dye [Mass/Vol] 3.1 g/dL Low 3.4 - 5.0 g/dL [facility] Anion gap [Moles/Vol] 11 mmol/L 10 - 2 0 mmol/L [facility] Calcium [Mass/Vol] 9.4 mg/dL 8.6 - 10. 6 mg/dL [facility] Chloride [Moles/Vol] 97 mmol/L Low 98 - 10 7 mmol/L [facility] CO2 [Moles/Vol] 30 mmol/L 21 - 32 mmol/L [facility] Creatinine [Mass/Vol] 0.74 mg/dL 0.50 - 1.05 mg/dL [facility] eGFR - PINF [facility] Glucose [Mass/Vol] 204 mg/dL High 74 - 99 mg/dL [facility] Interpretation and review of laboratory results Abnormal [facility] Phosphate [Mass/Vol] 2.5 mg/dL 2.5 - 4 .9 mg/dL [facility] Potassium [Moles/Vol] 4.0 mmol/L 3.5 - 5.3 mmol/L [facility] Sodium [Moles/Vol] 134 mmol/L Low 136 - 145 mmol/L [facility] Urea nitrogen [Mass/Vol] 14 mg/dL 6 - 23 mg/dL [facility] Albumin BCP dye [Mass/Vol] 3.1 g/dL Low 3.4-5.0 [facility] Comment on above: Performed By: #### 2 4362-6 ####DERRICK Hall ([id number])[facility] ([facility])[address] [place] [address] Anion gap [Moles/Vol] 11 mmol/L Normal 10-20 [facility] Comment on above: Performed By: #### 2 4362-6 ####DERRICK Hall ([id number])[facility] ([facility])[address] [place] [address] Calcium [Mass/Vol] 9.4 mg/dL Normal 8.6-10.6 [facility] Comment on above: Performed By: #### 2 4362-6 ####DERRICK Hall ([id number])[facility] ([facility])[address] [place] [address] Chloride [Moles/Vol] 97 mmol/L Low 98-107 [facility] Comment on above: Performed By: #### 2 4362-6 ####DERRICK Hall ([id number])[facility] ([facility])[address] [place] [address] CO2 [Moles/Vol] 30 mmol/L Normal 21-32 [facility] Comment on above: Performed By: #### 2 4362-6 ####DERRICK Hall ([id number])[facility] ([facility])[address] [place] [address] Creatinine [Mass/Vol] 0.74 mg/dL Normal 0.50-1.05 [facility] Comment on above: Performed By: #### 2 4362-6 ####DERRICK BRAR L ([id number])[facility] ([facility])[address] [place] [address] Glomerular filtration rate >90 Normal >60 [facility] Comment on above: Result Comment: Calc ulations of estimated GFR are performed using the 2020 CKD-EPI Study Refit equation without the race variable for the IDMS-Traceable creatinine methods.https://jasn.asnjournals.org/content/early/ N.4663005145 Performed By: #### 2 4362-6 ####DERRICK BRAR L ([id number])[facility] ([facility])[address] [place] [address] Glucose [Mass/Vol] 204 mg/dL High 74-99 [facility] Comment on above: Performed By: #### 2 4362-6 ####DERRICK BRAR L ([id number])[facility] ([facility])[address] [place] [address] Phosphate [Mass/Vol] 2.5 mg/dL Normal 2.5-4.9 [facility] Comment on above: Performed By: #### 2 4362-6 ####DERRICK CHOUDHARYMOTZER L ([id number])[facility] ([facility])[address] [place] [address] Potassium [Moles/Vol] 4.0 mmol/L Normal 3.5-5.3 [facility] Comment on above: Performed By: #### 2 4362-6 ####DERRICK BRAR L ([id number])[facility] ([facility])[address] [place] [address] Sodium [Moles/Vol] 134 mmol/L Low 136-145 [facility] Comment on above: Performed By: #### 2 4362-6 ####DERRICK Hall ([id number])[facility] ([facility])[address] [place] [address] Urea nitrogen [Mass/Vol] 14 mg/dL Normal 6-23 [facility] Comment on above: Performed By: #### 2 4362-6 ####DERRICK Hall ([id number])[facility] ([facility])[address] [place] [address] Albumin BCP dye [Mass/Vol] 2.9 g/dL Low 3.4 - 5.0 g/dL [facility] Anion gap [Moles/Vol] 12 mmol/L 10 - 2 0 mmol/L [facility] Calcium [Mass/Vol] 9.1 mg/dL 8.6 - 10. 6 mg/dL [facility] Chloride [Moles/Vol] 99 mmol/L 98 - 10 7 mmol/L [facility] CO2 [Moles/Vol] 27 mmol/L 21 - 32 mmol/L [facility] Creatinine [Mass/Vol] 0.59 mg/dL 0.50 - 1.05 mg/dL [facility] eGFR - PINF [facility] Glucose [Mass/Vol] 200 mg/dL High 74 - 99 mg/dL [facility] Interpretation and review of laboratory results Abnormal [facility] Phosphate [Mass/Vol] 2.9 mg/dL 2.5 - 4 .9 mg/dL [facility] Potassium [Moles/Vol] 4.4 mmol/L 3.5 - 5.3 mmol/L [facility] Sodium [Moles/Vol] 134 mmol/L Low 136 - 145 mmol/L [facility] Urea nitrogen [Mass/Vol] 12 mg/dL 6 - 23 mg/dL [facility] Albumin BCP dye [Mass/Vol] 2.9 g/dL Low 3.4-5.0 [facility] Comment on above: Performed By: #### 2 4362-6 ####DERRICK SIMER L ([id number])[facility] ([facility])[address] [facility] [place] [address] Anion gap [Moles/Vol] 12 mmol/L Normal 10-20 [facility] Comment on above: Performed By: #### 2 4362-6 ####DERRICK SIMER L ([id number])[facility] ([facility])[address] [place] [address] Calcium [Mass/Vol] 9.1 mg/dL Normal 8.6-10.6 [facility] Comment on above: Performed By: #### 2 4362-6 ####DERRICK BRAR L ([id number])[facility] ([facility])[address] [place] [address] Chloride [Moles/Vol] 99 mmol/L Normal 98-107 [facility] Comment on above: Performed By: #### 2 4362-6 ####DERRICK ALVESTZER L ([id number])[facility] ([facility])[address] [place] [address] CO2 [Moles/Vol] 27 mmol/L Normal 21-32 [facility] Comment on above: Performed By: #### 2 4362-6 ####DERRICK CHOUDHARYMOTZER L ([id number])[facility] ([facility])[address] [place] [address] Creatinine [Mass/Vol] 0.59 mg/dL Normal 0.50-1.05 [facility] Comment on above: Performed By: #### 2 4362-6 ####DERRICK CHOUDHARYMOTZER L ([id number])[facility] ([facility])[address] [place] [address] Glomerular filtration rate >90 Normal >60 [facility] Comment on above: Result Comment: Calc ulations of estimated GFR are performed using the 2020 CKD-EPI Study Refit equation without the race variable for the IDMS-Traceable creatinine methods.https://jasn.asnjournals.org/content// N.5626209090 Performed By: #### 2 4362-6 ####DERRICK Hall ([id number])[facility] ([facility])[address] [place] [address] Glucose [Mass/Vol] 200 mg/dL High 74-99 [facility] Comment on above: Performed By: #### 2 4362-6 ####DERRICK Hall ([id number])[facility] ([facility])[address] [place] [address] Phosphate [Mass/Vol] 2.9 mg/dL Normal 2.5-4.9 [facility] Comment on above: Performed By: #### 2 4362-6 ####DERRICK Hall ([id number])[facility] ([facility])[address] [place] [address] Potassium [Moles/Vol] 4.4 mmol/L Normal 3.5-5.3 [facility] Comment on above: Performed By: #### 2 4362-6 ####DERRICK Hall ([id number])[facility] ([facility])[address] [place] [address] Sodium [Moles/Vol] 134 mmol/L Low 136-145 [facility] Comment on above: Performed By: #### 2 4362-6 ####DERRICK Hall ([id number])[facility] ([facility])[address] [place] [address] Urea nitrogen [Mass/Vol] 12 mg/dL Normal 6-23 [facility] Comment on above: Performed By: #### 2 4362-6 ####DERRICK Hall ([id number])[facility] ([facility])[address] [place] [address] XR CHEST 1 VIEWon 04-05-2025 XR CHEST 1 VIEW Normal [facility] XR Chest Single viewon 04-05 [facility] MM[facility]AL [facility] MMODAL [facility] Work Phone: [facility] Work Phone: Radiology Study observation (narrative) [facility] Work Phone: CBC W Auto Differential pane l (Bld)on 04-04-2025 Basophils (Bld) [#/Vol] 0.03 10*3/uL [facility] Basophils/100 WBC (Bld) 0.4 % 0.0 - 2.0 % [facility] Eosinophils (Bld) [#/Vol] 0.21 10*3/uL [facility] Eosinophils/100 WBC (Bld) 2.8 % 0.0 - 6.0 % [facility] Erythrocyte distribution width (RBC) [Ratio] 13.0 % 11.5 - 14.5 % [facility] Hematocrit (Bld) [Volume fraction] 41.7 % 36.0 - 46.0 % [facility] Hemoglobin (Bld) [Mass/Vol] 12.7 g/dL 12.0 - 16.0 g/dL [facility] Immature granulocytes (Bld) [#/Vol] 0.03 10*3/uL [facility] Immature granulocytes/100 WBC (Bld) 0.4 % 0.0 - 0.9 % [facility] Interpretation and review of laboratory results Abnormal [facility] Lymphocytes (Bld) [#/Vol] 0.93 10*3/uL Low [facility] Lymphocytes/100 WBC (Bld) 12.3 % 13.0 - 44.0 % [facility] MCH (RBC) [Entitic mass] 30.8 pg 26.0 - 34.0 pg [facility] MCHC (RBC) [Mass/Vol] 30.5 g/dL Low 32.0 - 36.0 g/dL [facility] MCV (RBC) [Entitic vol] 101 fL High 80 - 100 fL [facility] Monocytes (Bld) [#/Vol] 0.62 10*3/uL [facility] Monocytes/100 WBC (Bld) 8.2 % 2.0 - 10.0 % [facility] Neutrophils (Bld) [#/Vol] 5.73 10*3/uL [facility] Neutrophils/100 WBC (Bld) 75.9 % 40.0 - 80.0 % [facility] Nucleated RBC/100 WBC (Bld) [Ratio] 0.0 % [facility] Platelets (Bld) [#/Vol] 197 10*3/uL [facility] RBC (Bld) [#/Vol] 4.12 10*6/uL [facility] WBC (Bld) [#/Vol] 7.6 10*3/uL [facility] Basophils (Bld) [#/Vol] 0.03 x10*3/uL Normal 0.00-0.10 [facility] Comment on above: Performed By: #### 5 7021-8 ####DERRICK Hall ([id number])[facility] ([facility])[id number] [place] [address] Basophils/100 WBC (Bld) 0.4 % Normal 0.0-2.0 [facility] Comment on above: Performed By: #### 5 7021-8 ####DERRICK Hall ([id number])[facility] ([facility])[id number] [place] [address] Eosinophils (Bld) [#/Vol] 0.21 x10*3/uL Normal 0.00-0.70 [facility] Comment on above: Performed By: #### 5 7021-8 ####DERRICK Hall ([id number])[facility] ([facility])[address] [place] [address] Eosinophils/100 WBC (Bld) 2.8 % Normal 0.0-6.0 [facility] Comment on above: Performed By: #### 5 7021-8 ####DERRICK Hall ([id number])[facility] ([facility])[id number] [place] [address] Erythrocyte distribution width (RBC) [Ratio] 13.0 % Normal 11.5-14.5 [facility] Comment on above: Performed By: #### 5 7021-8 ####DERRICK Hall ([id number])[facility] ([facility])[id number] [place] [address] Hematocrit (Bld) [Volume fraction] 41.7 % Normal 36.0-46.0 [facility] Comment on above: Performed By: #### 5 7021-8 ####DERRICK Hall ([id number])[facility] ([facility])[address] [place] [address] Hemoglobin (Bld) [Mass/Vol] 12.7 g/dL Normal 12.0-16.0 [facility] Comment on above: Performed By: #### 5 7021-8 ####DERRICK Hall ([id number])[facility] ([facility])[address] [place] [address] Immature granulocytes (Bld) [#/Vol] 0.03 x10*3/uL Normal 0.00-0.70 [facility] Comment on above: Performed By: #### 5 7021-8 ####DERRICK Hall ([id number])[facility] ([facility])[address] [place] [address] Immature granulocytes/100 WBC (Bld) 0.4 % Normal 0.0-0.9 [facility] Comment on above: Result Comment: Arlen ture Granulocyte Count (IG) includes promyelocytes, myelocytes and metamyelocytes but does not include bands. Percent differential counts (%) should be interpreted in the context of the absolute cell counts (cells/UL). Performed By: #### 5 7021-8 ####DERRICK Hall ([id number])[facility] ([facility])[address] [place] [address] Lymphocytes (Bld) [#/Vol] 0.93 x10*3/uL Low 1.20-4.80 [facility] Comment on above: Performed By: #### 5 7021-8 ####DERRICK Hall ([id number])[facility] ([facility])[address] [place] [address] Lymphocytes/100 WBC (Bld) 12.3 % Normal 13.0-44.0 [facility] Comment on above: Performed By: #### 5 7021-8 ####DERRICK Hall ([id number])[facility] ([facility])[address] [place] [address] MCH (RBC) [Entitic mass] 30.8 pg Normal 26.0-34.0 [facility] Comment on above: Performed By: #### 5 7021-8 ####DERRICK Hall ([id number])[facility] ([facility])[address] [place] [address] MCHC (RBC) [Mass/Vol] 30.5 g/dL Low 32.0-36.0 [facility] Comment on above: Performed By: #### 5 7021-8 ####DERRICK Hall ([id number])[facility] ([facility])[address] [place] [address] MCV (RBC) [Entitic vol] 101 fL High 80-100 [facility] Comment on above: Performed By: #### 5 7021-8 ####DERRICK Hall ([id number])[facility] ([facility])[address] [place] [address] Monocytes (Bld) [#/Vol] 0.62 x10*3/uL Normal 0.10-1.00 [facility] Comment on above: Performed By: #### 5 7021-8 ####DERRICK Hall ([id number])[facility] ([facility])[address] [place] [address] Monocytes/100 WBC (Bld) 8.2 % Normal 2.0-10.0 [facility] Comment on above: Performed By: #### 5 7021-8 ####DERRICK BRAR L ([id number])[facility] ([facility])[address] [place] [address] Neutrophils (Bld) [#/Vol] 5.73 x10*3/uL Normal 1.20-7.70 [facility] Comment on above: Result Comment: Perc ent differential counts (%) should be interpreted in the context of the absolute cell counts (cells/uL). Performed By: #### 5 7021-8 ####DERRICK Hall ([id number])[facility] ([facility])[address] [place] [address] Neutrophils/100 WBC (Bld) 75.9 % Normal 40.0-80.0 [facility] Comment on above: Performed By: #### 5 7021-8 ####DERRICK Hall ([id number])[facility] ([facility])[address] [place] [address] Nucleated RBC/100 WBC (Bld) [Ratio] 0.0 /100 WBCs Normal 0.0-0.0 [facility] Comment on above: Performed By: #### 5 7021-8 ####DERRICK Hall ([id number])[facility] ([facility])[address] [place] [address] Platelets (Bld) [#/Vol] 197 x10*3/uL Normal 150-450 [facility] Comment on above: Performed By: #### 5 7021-8 ####DERRICK Hall ([id number])[facility] [facility] ([facility])[address] [place] [address] RBC (Bld) [#/Vol] 4.12 x10*6/uL Normal 4.00-5.20 [facility] Comment on above: Performed By: #### 5 7021-8 ####DERRICK Hall ([id number])[facility] ([facility])[address] [place] [address] WBC (Bld) [#/Vol] 7.6 x10*3/uL Normal 4.4-11.3 [facility] Comment on above: Performed By: #### 5 7021-8 ####DERRICK Hall ([id number])[facility] ([facility])[address] [place] [address] Glucose Test strip manual (B ld) [Mass/Vol]on 04-04-2025 Glucose [Mass/Vol] 222 mg/dL High 74 - 99 mg/dL [facility] Interpretation and review of laboratory results Abnormal [facility] Glucose [Mass/Vol] 222 mg/dL High 74-99 [facility] Comment on above: Performed By: #### 2 341-6 ####DERRICK Hall ([id number])[facility] ([facility])[address] [place] [address] Glucose [Mass/Vol] 203 mg/dL High 74 - 99 mg/dL [facility] Interpretation and review of laboratory results Abnormal [facility] Glucose [Mass/Vol] 203 mg/dL High 74-99 [facility] Comment on above: Performed By: #### 2 341-6 ####DERRICK Hall ([id number])[facility] ([facility])[address] [place] [address] Glucose [Mass/Vol] 158 mg/dL High 74 - 99 mg/dL [facility] Interpretation and review of laboratory results Abnormal [facility] Glucose [Mass/Vol] 158 mg/dL High 74-99 [facility] Comment on above: Performed By: #### 2 341-6 ####DERRICK Hall ([id number])[facility] ([facility])[address] [place] [address] Magnesiumon 04-04-2025 Magnesium [Mass/Vol] 2.20 mg/dL 1.60 - 2.40 mg/dL [facility] Magnesium [Mass/Vol] 2.20 mg/dL Normal 1.60-2.40 [facility] Comment on above: Performed By: #### 1 9123-9 ####DERRICK Hall ([id number])[facility] ([facility])[address] [place] [address] Magnesium [Mass/Vol]on 04-04 Interpretation and review of laboratory results Normal [facility] No Panel Informationon 04-04 [facility] Renal function 2000 panelon 04-04-2025 Albumin BCP dye [Mass/Vol] 3.1 g/dL Low 3.4 - 5.0 g/dL [facility] Anion gap [Moles/Vol] 10 mmol/L 10 - 2 0 mmol/L [facility] Calcium [Mass/Vol] 9.4 mg/dL 8.6 - 10. 6 mg/dL [facility] Chloride [Moles/Vol] 97 mmol/L Low 98 - 10 7 mmol/L [facility] CO2 [Moles/Vol] 30 mmol/L 21 - 32 mmol/L [facility] Creatinine [Mass/Vol] 0.69 mg/dL 0.50 - 1.05 mg/dL [facility] eGFR - PINF [facility] Glucose [Mass/Vol] 221 mg/dL High 74 - 99 mg/dL [facility] Interpretation and review of laboratory results Abnormal [facility] Phosphate [Mass/Vol] 2.9 mg/dL 2.5 - 4 .9 mg/dL [facility] Potassium [Moles/Vol] 4.1 mmol/L 3.5 - 5.3 mmol/L [facility] Sodium [Moles/Vol] 133 mmol/L Low 136 - 145 mmol/L [facility] Urea nitrogen [Mass/Vol] 13 mg/dL 6 - 23 mg/dL [facility] Albumin BCP dye [Mass/Vol] 3.1 g/dL Low 3.4-5.0 [facility] Comment on above: Performed By: #### 2 4362-6 ####DERRICK Hall ([id number])[facility] ([facility])[address] [place] [address] Anion gap [Moles/Vol] 10 mmol/L Normal 10-20 [facility] Comment on above: Performed By: #### 2 4362-6 ####DERRICK Hall ([id number])[facility] ([facility])[address] [place] [address] Calcium [Mass/Vol] 9.4 mg/dL Normal 8.6-10.6 [facility] Comment on above: Performed By: #### 2 4362-6 ####DERRICK Hall ([id number])[facility] ([facility])[address] [place] [address] Chloride [Moles/Vol] 97 mmol/L Low 98-107 [facility] Comment on above: Performed By: #### 2 4362-6 ####DERRICK BRAR L ([id number])[facility] ([facility])[address] [place] [address] CO2 [Moles/Vol] 30 mmol/L Normal 21-32 [facility] Comment on above: Performed By: #### 2 4362-6 ####DERRICK BRAR L ([id number])[facility] ([facility])[address] [place] [address] Creatinine [Mass/Vol] 0.69 mg/dL Normal 0.50-1.05 [facility] Comment on above: Performed By: #### 2 4362-6 ####DERRICK Hall ([id number])[facility] ([facility])[address] [place] [address] Glomerular filtration rate >90 Normal >60 [facility] Comment on above: Result Comment: Calc ulations of estimated GFR are performed using the 2020 CKD-EPI Study Refit equation without the race variable for the IDMS-Traceable creatinine methods.https://jasn.asnjournals.org/content/early/ N.1876297043 Performed By: #### 2 4362-6 ####DERRICK Hall ([id number])[facility] ([facility])[address] [place] [address] Glucose [Mass/Vol] 221 mg/dL High 74-99 [facility] Comment on above: Performed By: #### 2 4362-6 ####DERRICK BRAR L ([id number])[facility] ([facility])[address] [place] [address] Phosphate [Mass/Vol] 2.9 mg/dL Normal 2.5-4.9 [facility] Comment on above: Performed By: #### 2 4362-6 ####DERRICK Hall ([id number])[facility] ([facility])[address] [place] [address] Potassium [Moles/Vol] 4.1 mmol/L Normal 3.5-5.3 [facility] Comment on above: Performed By: #### 2 4362-6 ####DERRICK Hall ([id number])[facility] ([facility])[address] [place] [address] Sodium [Moles/Vol] 133 mmol/L Low 136-145 [facility] Comment on above: Performed By: #### 2 4362-6 ####DERRICK Hall ([id number])[facility] ([facility])[address] [place] [address] Urea nitrogen [Mass/Vol] 13 mg/dL Normal 6-23 [facility] Comment on above: Performed By: #### 2 4362-6 ####DERRICK Hall ([id number])[facility] ([facility])[address] [place] [address] Albumin BCP dye [Mass/Vol] 3.0 g/dL Low 3.4 - 5.0 g/dL [facility] Anion gap [Moles/Vol] 12 mmol/L 10 - 2 0 mmol/L [facility] Calcium [Mass/Vol] 9.3 mg/dL 8.6 - 10. 6 mg/dL [facility] Chloride [Moles/Vol] 100 mmol/L 98 - 10 7 mmol/L [facility] CO2 [Moles/Vol] 27 mmol/L 21 - 32 mmol/L [facility] Creatinine [Mass/Vol] 0.59 mg/dL 0.50 - 1.05 mg/dL [facility] eGFR - PINF [facility] Glucose [Mass/Vol] 186 mg/dL High 74 - 99 mg/dL [facility] Interpretation and review of laboratory results Abnormal [facility] Phosphate [Mass/Vol] 3.6 mg/dL 2.5 - 4 .9 mg/dL [facility] Potassium [Moles/Vol] 4.5 mmol/L 3.5 - 5.3 mmol/L [facility] Sodium [Moles/Vol] 134 mmol/L Low 136 - 145 mmol/L [facility] Urea nitrogen [Mass/Vol] 12 mg/dL 6 - 23 mg/dL [facility] Albumin BCP dye [Mass/Vol] 3.0 g/dL Low 3.4-5.0 [facility] Comment on above: Performed By: #### 2 4362-6 ####DERRICK Hall ([id number])[facility] ([facility])[address] [place] [address] Anion gap [Moles/Vol] 12 mmol/L Normal 10-20 [facility] Comment on above: Performed By: #### 2 4362-6 ####DERRICK Hall ([id number])[facility] ([facility])[address] [place] [address] Calcium [Mass/Vol] 9.3 mg/dL Normal 8.6-10.6 [facility] Comment on above: Performed By: #### 2 4362-6 ####DERRICK Hall ([id number])[facility] ([facility])[address] [place] [address] Chloride [Moles/Vol] 100 mmol/L Normal 98-107 [facility] Comment on above: Performed By: #### 2 4362-6 ####DERRICK Hall ([id number])[facility] ([facility])[address] [place] [address] CO2 [Moles/Vol] 27 mmol/L Normal 21-32 [facility] Comment on above: Performed By: #### 2 4362-6 ####DERRICK Hall ([id number])[facility] ([facility])[address] [place] [address] Creatinine [Mass/Vol] 0.59 mg/dL Normal 0.50-1.05 [facility] Comment on above: Performed By: #### 2 4362-6 ####DERRICK Hall ([id number])[facility] ([facility])[address] [place] [address] Glomerular filtration rate >90 Normal >60 [facility] Comment on above: Result Comment: Calc ulations of estimated GFR are performed using the 2020 CKD-EPI Study Refit equation without the race variable for the IDMS-Traceable creatinine methods.https://jasn.asnjournals.org/content// N.1321632531 Performed By: #### 2 4362-6 ####DERRICK Hall ([id number])[facility] ([facility])[address] [place] [address] Glucose [Mass/Vol] 186 mg/dL High 74-99 [facility] Comment on above: Performed By: #### 2 4362-6 ####DERRICK Hall ([id number])[facility] ([facility])[address] [place] [address] Phosphate [Mass/Vol] 3.6 mg/dL Normal 2.5-4.9 [facility] Comment on above: Performed By: #### 2 4362-6 ####DERRICK Hall ([id number])[facility] ([facility])[address] [place] [address] Potassium [Moles/Vol] 4.5 mmol/L Normal 3.5-5.3 [facility] Comment on above: Performed By: #### 2 4362-6 ####DERRICK BRAR L ([id number])[facility] ([facility])[address] [place] [address] Sodium [Moles/Vol] 134 mmol/L Low 136-145 [facility] Comment on above: Performed By: #### 2 4362-6 ####DERRICK Hall ([id number])[facility] ([facility])[address] [place] [address] Urea nitrogen [Mass/Vol] 12 mg/dL Normal 6-23 [facility] Comment on above: Performed By: #### 2 4362-6 ####DERRICK Hall ([id number])[facility] ([facility])[address] [place] [address] Staphylococcus aureus.methic illin resistant isolateon 04-04-2025 MRSA isol Org specific cx Ql (Nose) Normal [facility] Comment on above: Performed By: #### 5 2969-3 ####DERRICK Hall ([id number])[facility] ([facility])[address] [place] [address] XR CHEST 1 VIEWon 04-04-2025 XR CHEST 1 VIEW Normal [facility] XR Chest Single viewon 04-04 [facility] MMODAL [facility] MMODAL [facility] Work Phone: [facility] Work Phone: Radiology Study observation (narrative) [facility] Work Phone: Bacteria identified Cx Nom ( Body fld)Ordered By: Gissel Taylor on 04-03-2025 Microscopic observation Gram stain Nom (Unsp spec) (2+) Few Polymorphonuclear leukocytes [facility] Microscopic observation Gram stain Nom (Unsp spec) No organisms seen [facility] CBC W Auto Differential pane l (Bld)on 04-03-2025 Basophils (Bld) [#/Vol] 0.03 10*3/uL [facility] Basophils/100 WBC (Bld) 0.3 % 0.0 - 2.0 % [facility] Eosinophils (Bld) [#/Vol] 0.27 10*3/uL [facility] Eosinophils/100 WBC (Bld) 2.7 % 0.0 - 6.0 % [facility] Erythrocyte distribution width (RBC) [Ratio] 13.1 % 11.5 - 14.5 % [facility] Hematocrit (Bld) [Volume fraction] 41.8 % 36.0 - 46.0 % [facility] Hemoglobin (Bld) [Mass/Vol] 12.8 g/dL 12.0 - 16.0 g/dL [facility] Immature granulocytes (Bld) [#/Vol] 0.06 10*3/uL [facility] Immature granulocytes/100 WBC (Bld) 0.6 % 0.0 - 0.9 % [facility] Interpretation and review of laboratory results Abnormal [facility] Lymphocytes (Bld) [#/Vol] 1.04 10*3/uL Low [facility] Lymphocytes/100 WBC (Bld) 10.5 % 13.0 - 44.0 % [facility] MCH (RBC) [Entitic mass] 30.6 pg 26.0 - 34.0 pg [facility] MCHC (RBC) [Mass/Vol] 30.6 g/dL Low 32.0 - 36.0 g/dL [facility] MCV (RBC) [Entitic vol] 100 fL 80 - 100 fL [facility] Monocytes (Bld) [#/Vol] 0.76 10*3/uL [facility] Monocytes/100 WBC (Bld) 7.7 % 2.0 - 10.0 % [facility] Neutrophils (Bld) [#/Vol] 7.75 10*3/uL High [facility] Neutrophils/100 WBC (Bld) 78.2 % 40.0 - 80.0 % [facility] Nucleated RBC/100 WBC (Bld) [Ratio] 0.0 % [facility] Platelets (Bld) [#/Vol] 182 10*3/uL [facility] RBC (Bld) [#/Vol] 4.18 10*6/uL [facility] WBC (Bld) [#/Vol] 9.9 10*3/uL [facility] Basophils (Bld) [#/Vol] 0.03 x10*3/uL Normal 0.00-0.10 [facility] Comment on above: Performed By: #### 5 7021-8 ####DERRICK Hall ([id number])[facility] ([facility])[address] [place] [address] Basophils/100 WBC (Bld) 0.3 % Normal 0.0-2.0 [facility] Comment on above: Performed By: #### 5 7021-8 ####DERRICK Hall ([id number])[facility] ([facility])[address] [place] [address] Eosinophils (Bld) [#/Vol] 0.27 x10*3/uL Normal 0.00-0.70 [facility] Comment on above: Performed By: #### 5 7021-8 ####DERRICK Hall ([id number])[facility] ([facility])[address] [place] [address] Eosinophils/100 WBC (Bld) 2.7 % Normal 0.0-6.0 [facility] Comment on above: Performed By: #### 5 7021-8 ####DERRICK Hall ([id number])[facility] ([facility])[address] [place] [address] Erythrocyte distribution width (RBC) [Ratio] 13.1 % Normal 11.5-14.5 [facility] Comment on above: Performed By: #### 5 7021-8 ####DERRICK Hall ([id number])[facility] ([facility])[address] [place] [address] Hematocrit (Bld) [Volume fraction] 41.8 % Normal 36.0-46.0 [facility] Comment on above: Performed By: #### 5 7021-8 ####DERRICK Hall ([id number])[facility] ([facility])[address] [place] [address] Hemoglobin (Bld) [Mass/Vol] 12.8 g/dL Normal 12.0-16.0 [facility] Comment on above: Performed By: #### 5 7021-8 ####DERRICK Hall ([id number])[facility] ([facility])[address] [place] [address] Immature granulocytes (Bld) [#/Vol] 0.06 x10*3/uL Normal 0.00-0.70 [facility] Comment on above: Performed By: #### 5 7021-8 ####DERRICK Hall ([id number])[facility] ([facility])[address] [place] [address] Immature granulocytes/100 WBC (Bld) 0.6 % Normal 0.0-0.9 [facility] Comment on above: Result Comment: Arlen ture Granulocyte Count (IG) includes promyelocytes, myelocytes and metamyelocytes but does not include bands. Percent differential counts (%) should be interpreted in the context of the absolute cell counts (cells/UL). Performed By: #### 5 7021-8 ####DERRICK Hall ([id number])[facility] ([facility])[address] [place] [address] Lymphocytes (Bld) [#/Vol] 1.04 x10*3/uL Low 1.20-4.80 [facility] Comment on above: Performed By: #### 5 7021-8 ####DERRICK Hall ([id number])[facility] ([facility])[address] [place] [address] Lymphocytes/100 WBC (Bld) 10.5 % Normal 13.0-44.0 [facility] Comment on above: Performed By: #### 5 7021-8 ####DERRICK Hall ([id number])[facility] ([facility])[address] [place] [address] MCH (RBC) [Entitic mass] 30.6 pg Normal 26.0-34.0 [facility] Comment on above: Performed By: #### 5 7021-8 ####DERRICK Hall ([id number])[facility] ([facility])[address] [place] [address] MCHC (RBC) [Mass/Vol] 30.6 g/dL Low 32.0-36.0 [facility] Comment on above: Performed By: #### 5 7021-8 ####DERRICK Hall ([id number])[facility] ([facility])[address] [place] [address] MCV (RBC) [Entitic vol] 100 fL Normal 80-100 [facility] Comment on above: Performed By: #### 5 7021-8 ####DERRICK Hall ([id number])[facility] ([facility])[address] [place] [address] Monocytes (Bld) [#/Vol] 0.76 x10*3/uL Normal 0.10-1.00 [facility] Comment on above: Performed By: #### 5 7021-8 ####DERRICK Hall ([id number])[facility] ([facility])[address] [place] [address] Monocytes/100 WBC (Bld) 7.7 % Normal 2.0-10.0 [facility] Comment on above: Performed By: #### 5 7021-8 ####DERRICK Hall ([id number])[facility] ([facility])[address] [place] [address] Neutrophils (Bld) [#/Vol] 7.75 x10*3/uL High 1.20-7.70 [facility] Comment on above: Result Comment: Perc ent differential counts (%) should be interpreted in the context of the absolute cell counts (cells/uL). Performed By: #### 5 7021-8 ####DERRICK Hall ([id number])[facility] ([facility])[address] [place] [address] Neutrophils/100 WBC (Bld) 78.2 % Normal 40.0-80.0 [facility] Comment on above: Performed By: #### 5 7021-8 ####DERRICK Hall ([id number])[facility] ([facility])[address] [place] [address] Nucleated RBC/100 WBC (Bld) [Ratio] 0.0 /100 WBCs Normal 0.0-0.0 [facility] Comment on above: Performed By: #### 5 7021-8 ####DERRICK Hall ([id number])[facility] ([facility])[address] [place] [address] Platelets (Bld) [#/Vol] 182 x10*3/uL Normal 150-450 [facility] Comment on above: Performed By: #### 5 7021-8 ####DERRICK Hall ([id number])[facility] ([facility])[address] [place] [address] RBC (Bld) [#/Vol] 4.18 x10*6/uL Normal 4.00-5.20 [facility] Comment on above: Performed By: #### 5 7021-8 ####DERRICK Hall ([id number])[facility] ([facility])[address] [place] [address] WBC (Bld) [#/Vol] 9.9 x10*3/uL Normal 4.4-11.3 [facility] Comment on above: Performed By: #### 5 7021-8 ####DERRICK Hall ([id number])[facility] ([facility])[address] [place] [address] Glucose Test strip manual (B ld) [Mass/Vol]on 04-03-2025 Glucose [Mass/Vol] 227 mg/dL High 74 - 99 mg/dL [facility] Interpretation and review of laboratory results Abnormal [facility] Glucose [Mass/Vol] 227 mg/dL High 74-99 [facility] Comment on above: Performed By: #### 2 341-6 ####DERRICK Hall ([id number])[facility] ([facility])[address] [place] [address] Glucose [Mass/Vol] 168 mg/dL High 74 - 99 mg/dL [facility] Interpretation and review of laboratory results Abnormal [facility] Glucose [Mass/Vol] 168 mg/dL High 74-99 [facility] Comment on above: Performed By: #### 2 341-6 ####DERRICK Hall ([id number])[facility] ([facility])[address] [place] [address] Glucose [Mass/Vol] 226 mg/dL High 74 - 99 mg/dL [facility] Interpretation and review of laboratory results Abnormal [facility] Glucose [Mass/Vol] 226 mg/dL High 74-99 [facility] Comment on above: Performed By: #### 2 341-6 ####DERRICK Hall ([id number])[facility] ([facility])[address] [place] [address] Glucose [Mass/Vol] 178 mg/dL High 74 - 99 mg/dL [facility] Interpretation and review of laboratory results Abnormal [facility] Glucose [Mass/Vol] 178 mg/dL High 74-99 [facility] Comment on above: Performed By: #### 2 341-6 ####DERRICK Hall ([id number])[facility] ([facility])[address] [place] [address] Magnesiumon 04-03-2025 Magnesium [Mass/Vol] 1.98 mg/dL 1.60 - 2.40 mg/dL [facility] Magnesium [Mass/Vol] 1.98 mg/dL Normal 1.60-2.40 [facility] Comment on above: Performed By: #### 1 9123-9 ####DERRICK Hall ([id number])[facility] ([facility])[address] [place] [address] Magnesium [Mass/Vol]on 04-03 Interpretation and review of laboratory results Normal [facility] No Panel Informationon 04-03 [facility] Renal function 2000 panelon 04-03-2025 Albumin BCP dye [Mass/Vol] 3.2 g/dL Low 3.4 - 5.0 g/dL [facility] Anion gap [Moles/Vol] 14 mmol/L 10 - 2 0 mmol/L [facility] Calcium [Mass/Vol] 9.4 mg/dL 8.6 - 10. 6 mg/dL [facility] Chloride [Moles/Vol] 96 mmol/L Low 98 - 10 7 mmol/L [facility] CO2 [Moles/Vol] 28 mmol/L 21 - 32 mmol/L [facility] Creatinine [Mass/Vol] 0.57 mg/dL 0.50 - 1.05 mg/dL [facility] eGFR - PINF [facility] Glucose [Mass/Vol] 170 mg/dL High 74 - 99 mg/dL [facility] Interpretation and review of laboratory results Abnormal [facility] Phosphate [Mass/Vol] 2.8 mg/dL 2.5 - 4 .9 mg/dL [facility] Potassium [Moles/Vol] 3.9 mmol/L 3.5 - 5.3 mmol/L [facility] Sodium [Moles/Vol] 134 mmol/L Low 136 - 145 mmol/L [facility] Urea nitrogen [Mass/Vol] 13 mg/dL 6 - 23 mg/dL [facility] Albumin BCP dye [Mass/Vol] 3.2 g/dL Low 3.4-5.0 [facility] Comment on above: Performed By: #### 2 4362-6 ####DERRICK Hall ([id number])[facility] ([facility])[address] [place] [address] Anion gap [Moles/Vol] 14 mmol/L Normal 10-20 [facility] Comment on above: Performed By: #### 2 4362-6 ####DERRICK Hall ([id number])[facility] ([facility])[address] [place] [address] Calcium [Mass/Vol] 9.4 mg/dL Normal 8.6-10.6 [facility] Comment on above: Performed By: #### 2 4362-6 ####DERRICK Hall ([id number])[facility] ([facility])[address] [place] [address] Chloride [Moles/Vol] 96 mmol/L Low 98-107 [facility] Comment on above: Performed By: #### 2 4362-6 ####DERRICK Hall ([id number])[facility] ([facility])[address] [place] [address] CO2 [Moles/Vol] 28 mmol/L Normal 21-32 [facility] Comment on above: Performed By: #### 2 4362-6 ####DERRICK Hall ([id number])[facility] ([facility])[address] [place] [address] Creatinine [Mass/Vol] 0.57 mg/dL Normal 0.50-1.05 [facility] Comment on above: Performed By: #### 2 4362-6 ####DERRICK Hall ([id number])[facility] ([facility])[address] [place] [address] Glomerular filtration rate >90 Normal >60 [facility] Comment on above: Result Comment: Calc ulations of estimated GFR are performed using the 2020 CKD-EPI Study Refit equation without the race variable for the IDMS-Traceable creatinine methods.https://jasn.asnjournals.org/content/early/ N.5694852937 Performed By: #### 2 4362-6 ####DERRICK Hall ([id number])[facility] ([facility])[address] [place] [address] Glucose [Mass/Vol] 170 mg/dL High 74-99 [facility] Comment on above: Performed By: #### 2 4362-6 ####DERRICK Hall ([id number])[facility] ([facility])[address] [place] [address] Phosphate [Mass/Vol] 2.8 mg/dL Normal 2.5-4.9 [facility] Comment on above: Performed By: #### 2 4362-6 ####DERRICK Hall ([id number])[facility] ([facility])[address] [place] [address] Potassium [Moles/Vol] 3.9 mmol/L Normal 3.5-5.3 [facility] Comment on above: Performed By: #### 2 4362-6 ####DERRICK Hall ([id number])[facility] ([facility])[address] [place] [address] Sodium [Moles/Vol] 134 mmol/L Low 136-145 [facility] Comment on above: Performed By: #### 2 4362-6 ####DERRICK Hall ([id number])[facility] ([facility])[address] [place] [address] Urea nitrogen [Mass/Vol] 13 mg/dL Normal 6-23 [facility] Comment on above: Performed By: #### 2 4362-6 ####DERRICK Hall ([id number])[facility] ([facility])[id number] [place] [address] Albumin BCP dye [Mass/Vol] 2.9 g/dL Low 3.4 - 5.0 g/dL [facility] Anion gap [Moles/Vol] 11 mmol/L 10 - 2 0 mmol/L [facility] Calcium [Mass/Vol] 9.1 mg/dL 8.6 - 10. 6 mg/dL [facility] Chloride [Moles/Vol] 100 mmol/L 98 - 10 7 mmol/L [facility] CO2 [Moles/Vol] 28 mmol/L 21 - 32 mmol/L [facility] Creatinine [Mass/Vol] 0.57 mg/dL 0.50 - 1.05 mg/dL [facility] eGFR - PINF [facility] Glucose [Mass/Vol] 173 mg/dL High 74 - 99 mg/dL [facility] Interpretation and review of laboratory results Abnormal [facility] Phosphate [Mass/Vol] 3.1 mg/dL 2.5 - 4 .9 mg/dL [facility] Potassium [Moles/Vol] 4.2 mmol/L 3.5 - 5.3 mmol/L [facility] Sodium [Moles/Vol] 135 mmol/L Low 136 - 145 mmol/L [facility] Urea nitrogen [Mass/Vol] 12 mg/dL 6 - 23 mg/dL [facility] Albumin BCP dye [Mass/Vol] 2.9 g/dL Low 3.4-5.0 [facility] Comment on above: Performed By: #### 2 4362-6 ####DERRICK Hall ([id number])[facility] ([facility])[address] [place] [address] Anion gap [Moles/Vol] 11 mmol/L Normal 10-20 [facility] Comment on above: Performed By: #### 2 4362-6 ####DERRICK BRAR L ([id number])[facility] ([facility])[address] [place] [address] Calcium [Mass/Vol] 9.1 mg/dL Normal 8.6-10.6 [facility] Comment on above: Performed By: #### 2 4362-6 ####DERRICK BRAR L ([id number])[facility] ([facility])[address] [place] [address] Chloride [Moles/Vol] 100 mmol/L Normal 98-107 [facility] Comment on above: Performed By: #### 2 4362-6 ####DERRICK BRAR L ([id number])[facility] ([facility])[address] [place] [address] CO2 [Moles/Vol] 28 mmol/L Normal 21-32 [facility] Comment on above: Performed By: #### 2 4362-6 ####DERRICK BRAR L ([id number])[facility] ([facility])[address] [place] [address] Creatinine [Mass/Vol] 0.57 mg/dL Normal 0.50-1.05 [facility] Comment on above: Performed By: #### 2 4362-6 ####DERRICK BRAR L ([id number])[facility] ([facility])[address] [place] [address] Glomerular filtration rate >90 Normal >60 [facility] Comment on above: Result Comment: Calc ulations of estimated GFR are performed using the 2020 CKD-EPI Study Refit equation without the race variable for the IDMS-Traceable creatinine methods.https://jasn.asnjournals.org/content/early/ N.2373820724 Performed By: #### 2 4362-6 ####DERRICK Hall ([id number])[facility] ([facility])[address] [place] [address] Glucose [Mass/Vol] 173 mg/dL High 74-99 [facility] Comment on above: Performed By: #### 2 4362-6 ####DERRICK Hall ([id number])[facility] ([facility])[address] [place] [address] Phosphate [Mass/Vol] 3.1 mg/dL Normal 2.5-4.9 [facility] Comment on above: Performed By: #### 2 4362-6 ####DERRICK Hall ([id number])[facility] ([facility])[address] [place] [address] Potassium [Moles/Vol] 4.2 mmol/L Normal 3.5-5.3 [facility] Comment on above: Performed By: #### 2 4362-6 ####DERRICK Hall ([id number])[facility] ([facility])[address] [place] [address] Sodium [Moles/Vol] 135 mmol/L Low 136-145 [facility] Comment on above: Performed By: #### 2 4362-6 ####DERRICK Hall ([id number])[facility] ([facility])[address] [place] [address] Urea nitrogen [Mass/Vol] 12 mg/dL Normal 6-23 [facility] Comment on above: Performed By: #### 2 4362-6 ####DERRICK Hall ([id number])[facility] ([facility])[address] [place] [address] Sterile Fluid Culture/SmearO rdered By: Gissel Taylor on 04-03-2025 Bacteria identified Cx Nom (Body fld) No growth aerobically and anaerobically [facility] XR CHEST 1 VIEWon 04-03-2025 XR CHEST 1 VIEW Normal [facility] XR Chest Single viewon 04-03 U[facility] MMODAL UH MMODAL [facility] Work Phone: [facility] Work Phone: Radiology Study observation (narrative) [facility] Work Phone: CBC W Auto Differential pane l (Bld)on 04-02-2025 Basophils (Bld) [#/Vol] 0.03 10*3/uL [facility] Basophils/100 WBC (Bld) 0.3 % 0.0 - 2.0 % [facility] Eosinophils (Bld) [#/Vol] 0.23 10*3/uL [facility] Eosinophils/100 WBC (Bld) 2.5 % 0.0 - 6.0 % [facility] Erythrocyte distribution width (RBC) [Ratio] 13.2 % 11.5 - 14.5 % [facility] Hematocrit (Bld) [Volume fraction] 41.5 % 36.0 - 46.0 % [facility] Hemoglobin (Bld) [Mass/Vol] 13.1 g/dL 12.0 - 16.0 g/dL [facility] Immature granulocytes (Bld) [#/Vol] 0.06 10*3/uL [facility] Immature granulocytes/100 WBC (Bld) 0.6 % 0.0 - 0.9 % [facility] Interpretation and review of laboratory results Abnormal [facility] Lymphocytes (Bld) [#/Vol] 1.06 10*3/uL Low [facility] Lymphocytes/100 WBC (Bld) 11.4 % 13.0 - 44.0 % [facility] MCH (RBC) [Entitic mass] 31.3 pg 26.0 - 34.0 pg [facility] MCHC (RBC) [Mass/Vol] 31.6 g/dL Low 32.0 - 36.0 g/dL [facility] MCV (RBC) [Entitic vol] 99 fL 80 - 100 fL [facility] Monocytes (Bld) [#/Vol] 0.72 10*3/uL [facility] Monocytes/100 WBC (Bld) 7.8 % 2.0 - 10.0 % [facility] Neutrophils (Bld) [#/Vol] 7.18 10*3/uL [facility] Neutrophils/100 WBC (Bld) 77.4 % 40.0 - 80.0 % [facility] Nucleated RBC/100 WBC (Bld) [Ratio] 0.0 % [facility] Platelets (Bld) [#/Vol] 188 10*3/uL [facility] RBC (Bld) [#/Vol] 4.18 10*6/uL [facility] WBC (Bld) [#/Vol] 9.3 10*3/uL [facility] Basophils (Bld) [#/Vol] 0.03 x10*3/uL Normal 0.00-0.10 [facility] Comment on above: Performed By: #### 5 7021-8 ####DERRICK Hall ([id number])[facility] ([facility])[id number] [place] [address] Basophils/100 WBC (Bld) 0.3 % Normal 0.0-2.0 [facility] Comment on above: Performed By: #### 5 7021-8 ####DERRICK Hall ([id number])[facility] ([facility])[address] [place] [address] Eosinophils (Bld) [#/Vol] 0.23 x10*3/uL Normal 0.00-0.70 [facility] Comment on above: Performed By: #### 5 7021-8 ####DERRICK Hall ([id number])[facility] ([facility])[address] [place] [address] Eosinophils/100 WBC (Bld) 2.5 % Normal 0.0-6.0 [facility] Comment on above: Performed By: #### 5 7021-8 ####DERRICK Hall ([id number])[facility] ([facility])[address] [place] [address] Erythrocyte distribution width (RBC) [Ratio] 13.2 % Normal 11.5-14.5 [facility] Comment on above: Performed By: #### 5 7021-8 ####DERRICK Hall ([id number])[facility] ([facility])[address] [place] [address] Hematocrit (Bld) [Volume fraction] 41.5 % Normal 36.0-46.0 [facility] Comment on above: Performed By: #### 5 7021-8 ####DERRICK Hall ([id number])[facility] ([facility])[address] [place] [address] Hemoglobin (Bld) [Mass/Vol] 13.1 g/dL Normal 12.0-16.0 [facility] Comment on above: Performed By: #### 5 7021-8 ####DERRICK Hall ([id number])[facility] ([facility])[address] [place] [address] Immature granulocytes (Bld) [#/Vol] 0.06 x10*3/uL Normal 0.00-0.70 [facility] Comment on above: Performed By: #### 5 7021-8 ####DERRICK Hall ([id number])[facility] ([facility])[address] [place] [address] Immature granulocytes/100 WBC (Bld) 0.6 % Normal 0.0-0.9 [facility] Comment on above: Result Comment: Arlen ture Granulocyte Count (IG) includes promyelocytes, myelocytes and metamyelocytes but does not include bands. Percent differential counts (%) should be interpreted in the context of the absolute cell counts (cells/UL). Performed By: #### 5 7021-8 ####DERRICK Hall ([id number])[facility] ([facility])[address] [place] [address] Lymphocytes (Bld) [#/Vol] 1.06 x10*3/uL Low 1.20-4.80 [facility] Comment on above: Performed By: #### 5 7021-8 ####DERRICK Hall ([id number])[facility] ([facility])[address] [place] [address] Lymphocytes/100 WBC (Bld) 11.4 % Normal 13.0-44.0 [facility] Comment on above: Performed By: #### 5 7021-8 ####DERRICK Hall ([id number])[facility] ([facility])[address] [place] [address] MCH (RBC) [Entitic mass] 31.3 pg Normal 26.0-34.0 [facility] Comment on above: Performed By: #### 5 7021-8 ####DERRICK Hall ([id number])[facility] ([facility])[address]47 [place] [address] MCHC (RBC) [Mass/Vol] 31.6 g/dL Low 32.0-36.0 [facility] Comment on above: Performed By: #### 5 7021-8 ####DERRICK Hall ([id number])[facility] ([facility])[address] [place] [address] MCV (RBC) [Entitic vol] 99 fL Normal 80-100 [facility] Comment on above: Performed By: #### 5 7021-8 ####DERRICK Hall ([id number])[facility] ([facility])[address] [place] [address] Monocytes (Bld) [#/Vol] 0.72 x10*3/uL Normal 0.10-1.00 [facility] Comment on above: Performed By: #### 5 7021-8 ####DERRICK Hall ([id number])[facility] ([facility])[address] [place] [address] Monocytes/100 WBC (Bld) 7.8 % Normal 2.0-10.0 [facility] Comment on above: Performed By: #### 5 7021-8 ####DERRICK BARR L ([id number])[facility] ([facility])[address] [place] [address] Neutrophils (Bld) [#/Vol] 7.18 x10*3/uL Normal 1.20-7.70 [facility] Comment on above: Result Comment: Perc ent differential counts (%) should be interpreted in the context of the absolute cell counts (cells/uL). Performed By: #### 5 7021-8 ####DERRICK Hall ([id number])[facility] ([facility])[address] [place] [address] Neutrophils/100 WBC (Bld) 77.4 % Normal 40.0-80.0 [facility] Comment on above: Performed By: #### 5 7021-8 ####DERRICK BRAR L ([id number])[facility] ([facility])[address] [place] [address] Nucleated RBC/100 WBC (Bld) [Ratio] 0.0 /100 WBCs Normal 0.0-0.0 [facility] Comment on above: Performed By: #### 5 7021-8 ####DERRICK BRAR L ([id number])[facility] ([facility])[id number] [place] [address] Platelets (Bld) [#/Vol] 188 x10*3/uL Normal 150-450 [facility] Comment on above: Performed By: #### 5 7021-8 ####DERRICK BRAR L ([id number])[facility] ([facility])[address] [place] [address] RBC (Bld) [#/Vol] 4.18 x10*6/uL Normal 4.00-5.20 [facility] Comment on above: Performed By: #### 5 7021-8 ####DERRICK CHOUDHARYMOGAY L ([id number])[facility] ([facility])[address] [place] [address] WBC (Bld) [#/Vol] 9.3 x10*3/uL Normal 4.4-11.3 [facility] Comment on above: Performed By: #### 5 7021-8 ####DERRICK CHOUDHARYMOTZCARIDAD L ([id number])[facility] ([facility])[id number] [place] [address] Cancer related large scale g antwan targeted mutation analysis Molgen Doc (Bld/Tiss)Ordered By: Nael Ramirez on 04-02-2025 Electronically signed and reported by Nael Ramirez MD [facility] Work Phone: Focused Solid Tumor DNA/RNA Results k5xtaVTqGLGopUWwXLAmZixgbz CtMHOviUAjY1ZfvbufVBhiGV5e KV0hrVsbcRNyoLCzOKQsZuEwn1 ldt191eJPzh9zlVPMAQNwxDQZK TTr0gFjvB18vr5P3TkmaE85mtW GtDRA5CFDlHPMgvCEsZFJwQTJ2 ODUzcIDtK8vnVXRaHB4qjsheMD qjBZuzQOIvqNG4PIRiuXXbN4Hs ZYAzWAenFLDdhgr1GmTfBb4dqD VyeTcyMFxwYXJkXHBsYWluXGZz LoMeW2UtD8fdAO73VDU5pWEsuc R1FV93YUWCEwVpCbS5GwktWNIr eUTlOQRlhBbrXCNzPCCFrF5wwc ZWf481YW74LsWkFKBwuJBiAFRz mdWFJISZN2KXWOUBCLmBLPIZUO RQZFT0JH4tL8Etb5Q0GHsorSOs RSrfw7DcQwngtQH0ARgxO8kfVW 0JHT7RYEHnkwISM4NgSSDVLOQS RUQuXHBhclxwYXJccGFyIERJU0 HIV6HrPAZWO2RGYVXNHHOGBW1X TUlDIEZJTkRJTkdTOiBccGFyIE LGU65lBWXtDvIyPcGwVVySRJ9m HZJsAciaJe0rPSdNJiKrRYVpvt KBXfIZHWUsbJvtBwbuDCIdi53z kZUdCAfSGTFvcE9BXAOXSYwSRI 2dMwIpTfOzUf8gBFq+VClccGFy XHBhciBJTlRFUlBSRVRBVElPTi AILwSuWB9HTF2RWBZSSVIZQGBK ITELQRqUGO7XMAxEEyZ8CQBkzz UNEbAOURNzUzNnK4boIGCrKcVM GKMUV12ZNDIXCPTNLP9YYlYjLL W8JW2mWAFtTh4hBSEuQPmtCHUz mAerJVRpCyHVMO6vPTToPsqyAX ZtWOPyP2Zpr9sdSCpNaGTtYJC8 YM85TBnuUZNuk847u9Rmp0naON qSjZXuFDK5TO65PBnkWZVqiFLb MRYWH5TSC2AmXkTNSWKXKoDnXH qGLSPDKJfECyQhYo3YUOFBJGLN FSZNHmKxlSSnSF8tF2V3iWGyCC IvtdJYIIpbXzYmpO1vDxrdKTTa RbYxONAnvsVsZf7gMHWPEUFzWy NgPNXbOVAxvpXIGEreeFb1ZSMk f8RcODdBYmVuFO4nmPEkfmiaEj CrcVUlmOxcpw4tjLPlVR1uC7P3 aGNqHTOvkdVNZxGURiRiJ0Xdtd X9aD4mHH09lYO7cS8mVDUnyeJI QHkgpPb2AIVpn8BnGAHPEDU5c5 3bDCTjv5nnoPAdjyrraBL7PGUh q53fXRSxxzAWFBmguOf4EPTxo5 ScPpTAReIqxDYkt00wKEKsedIX QJoatYk6OJExb3UzJnWMVHJ7s0 mpoq5aoFKbXQ9hH5T5aLTwQTTw xsCET4SuMFO6t9ikop1ouNXmAU WgskgoQKFaVCaQJ1sPPW7CDqwb EVZiqvBCaThnYOSzu6Y0HHubOK Zed2gifdYjUOGvOXRyvAQlaTM0 FTAgFCWsMOVmbJmvsYKjjXn4BG ExeXC3ZD50QMXpykppIZGnbRAz RM05bPTyBCVhidvvwiKiDJNwlm FofuKeh86mMM1uCJBdvME0lR8f goBcLGXvXeZxOGX7jX8aQWIkNV 3yPRlfS2eoA80cjUBouT6cTOOr BI7qgHopdVPmqIrscaOsJDYbEO V0idLfm6xdY9U5cR5avoJzrvNx UNDapRPxkBEoax03nCUkRzRhZO 5emx6wCSwxgfLwf9TlhMPzh8Uu IG3yaYNnjLW8xE0poJpdtRCjDP J6KOUnHAFwfHL0qSCbDP7vZRaj fm9sgA9cGMTwiVInDBGhk99bFP glZOVtUSb1nqNlODOoK9jdicWo IEUlkpVgLSBuyiAvjxJmjAt4VW ifkXYnvEitjtIin6ZtaMRttkSt CbwbFKfqPB4wqxEmj3YqhsKjHJ ZknPVidVfmHGEeIOQsqnYoGD8k CYOzuPV5IFMsr18hZuIku9jujD zeSUgshZn5TB3uFIBsnYTxtLcj gjNkSiA7wRwfQOXnd3H4YZM4SL Y1wgTnu1fndcUorJscc8DaTgOy WUmcZRGpixTzftRhURX7kD7tHA wyyZLgu9qrkaUvjUjwEV3fHFMu AOUuenEgVZ0gQFYzMbEjRQZxgV runyPwTH44uOB4pL4hisDsvwS5 aGUgbGlzdGVkIGdlbmVzIHdoaW RvVGPlCQGbeIEeuUNpOH8mICVt VNT0IFYrQUTfwwXelG6cmaLkki O9mQabUQPvy8V6WgTXOR6uoxVf UOBrhATwSVWmd07ywQ5qzM8vmi FcqJAujhkamKEkkO41FCElEKO2 ie2ejJ1vnFTiLN3xEPajkMBomw zoVBBbgsroueSmZPz7oRPhQDHk CYSdzRXqnVAqf15ml8Mpl1EhbU YpVRHgnqdvjcEdKZNpgfChig53 IGdlbmVyYWxseSBpbmNsdWRlZC HnczC6hIneEHOzkY7euK1oZFcy JM0DBP9EB72TKfVhLPIzJ58ntK lvbiBpcyBiYXNlZCBvbiBhbmFs nUSzvoOhJuH8aCV7weOaPUPyc5 5vbnVjbGVvdGlkZSByZXBlYXQg fV5dwGPicdTitb28KCNaa0ZlQY 0lUNNgNSZ5OP1tNWrvDIXFJDVa d4UkyRNvGRDfhmKuaAYjMZ55BA UhhL8gQ6KlSZNoYEJ7bZTiANz1 mZSruZikZEUgNIFwUTN0vEGbo3 izrBGpOx0dTU5YOU1QJ42WSvH0 YMCoHAG9QBWpeG6kQQZkzGLiix SvoGOlC1DlACPpemGwjtCkmtSa TZAzUODPGKNmYRoZHZWgz1Q9uo Z7e6cmCnWnUXpxkIfdF32iv3Ka A7HngTGzawPdaVVwuprmRHQVXj FYSKHbf3Z9CG3sVMshNXWxuG3r I6SbOILqrIevpLV8FR1rJSEsXT IqsHAvcYPdaMs5QVUOP7uvNLJa wJwsHZOfw18caMDvJJ4kgUCzHM VuIGVzdGFibGlzaGVkLlxwYXJc tDAiPKcpXZ12pVZhE6I9lI7hUA 7pRWWeb9NpR1Yzj7BkI5WhL3Ib WPHte60kpQQ3JWBvpKE2MVXny1 1dJRIiUCZrhp34MV3iM9Dbi0Vs bMh2ZLivMCubIBOxPAGomzLhyW 2tf1CeaO3puQkynvObtC6wJMCz Y8aysJ0hjpEhtwPmWOXhKO31KM TcotLmMO6yESIzSAI0aSJbfDHj wOX7IPMsRHAqa6CxVD3lNUCiCE MqaeXusURyQEUgzLYrPVHrV0Mn MEo1UXjhBP25VS0cTSQbJAO4yg VkfItsIbRbfTseaRXjXE7uYYAo q5hjPeNivfKeZSFpM054kdLdYF wpZBLyrTfsJ3CctFXgcC7hr2So UPCbb25iF99oT8WnadpmHzC3yQ LqoXN1qKJvvOhqXUSdvyRsxDpg ibRrrCSjRQXgNCSgnF2pO6MaHI KbNAWgjBO2y5TgpXcuqZ4qhJOm RnsiTQafN2IhQZ53cITyGQmrIx 0hYTOrgsiwUnapFOzsC4ObCNBi WIQiOECsGN48HENlQHKwkzRpC8 HzIaPAjVhsPIZrjE8mpTFbsfGu bUZbfkQwnuXcbf8snQthzuGymg 8vRYL1SxwhNySuv5XoO2EmBDJv ccIdkBXrfcgja8JsEZ70oSSgGi BhbmQgbWVkaWNhbCBsaXRlcmF0 dXJlIHRvIGJldHRlciBjaGFyYW G4YFOceqMikHeeFABdQ59uVwnf HW7oRSNsBjIzjXAjixO2jY9aqd UiYGOiP1TsSW7fgNOcXNFqmjVJ tApvPKfsGl7mUIRgqzilBSV4UL seaJVrDBDud1Lys2CbRRVnzdPn r5LtGKQlvtFxpNAbZFToQSz0dR qpFElwxIDpPj9lzKWuE5OvT6af lyZdsVVhoCP9qALkBVjppiNeAe HircIyIHNvws7japDaAOX1BXCC RMKdDA3jzOL7vI7wOKymJJCze4 OcaC7ljF5oMDhytaW7DQX0XPbb faFwj6XlOaSpsoLvaNShsmNiFN 0aJBNbaDIlsrNyQGN9YJSoHNVA FBP1JViee9J0BEBxVJJgBWJZHU EgaGFzIGRldGVybWluZWQgdGhh dCBzdWNoIGFwcHJvdmFsIGlzIG 0teUVwNRRkk7TaqlihGYYaMIHF QXOSISacRZVhjyGxKzwwNMO3lj XhizK5yHDuY5lrkvzzISblXZOx k3VzeH2orICWkCClc9OtlHSanJ EVrZRnGD8cmoAdIF5fDPE2TOya CQQWKUNfNMgaLIGmSOR6TZquPw hnEFP4sfUgGHWbo4QxNLloV3hg Q35goZifwPa1kPH1VLY9lZ6iOg xwYXJccGFyIFBBTkVMIEdFTkUg HCfDRYbmqHVbXLohcEYbx1ZiUL F1WHNts94aLBgdkpHpVNayNALa zeI1CtBjdKn5TGGKKKMzASXKAx gzYKJNBIKGThEOKODSCm1iMBMD TDZhMWEFQxQaMXSHKRx6UHCYRG mFDdUsBEUYGQPCABanX6BJXwKd XTMEW4SUWTYBSBLqAGipQQHTAp IsIEVSQkIzLCBFUkJCNCwgRVNS MSwgRkJYVzcsIEZHRlIyLCBGR0 NIRiooY92KTUKlJHpSSJGcVYza RjNBLCBISVNUMUgzQiwgSFJBUy wgSURIMSwgSURIMiwgSkFLMSwg SkTNBwcqWkQCOosdV1EKBTZdBZ oMGAwwZ5WWKbnqPWQXLglfSZFB YLMaPaEnHT0HMFkgLHFTIhhvZd ZFMkwyLCBOUkFTLCBQREdGUkEs UPMJViILGOevGU2GYNzeRVHRFy oiSlCXLWXPY6DsAGINUNBMLNix M9FOHMNdLOKXCqhhLCK0DxlzOQ PHHaTjVWRqlpWGn9O8ZD66yQCf xqQWZZWzPL24waTjM4Pzrhl3RK FMSywgQVIsIEJSQUYsIENDTkQx IRXDLNv1CKTAPMy2VCSJH3HITS BFUkJCMiwgRkdGUjEsIEZHRlIy ASKEW6CIAvltEhnNCjMzWDgTOZ cbF9TLIhtpAJUTWZXJLRCdOM9E Y03nKRKQP9SMBWgrCCcJK0HYAw xwLCRbRuYqaK6gloXgBLKtgxUi IGdlbmVzKTogQUxLLCBCUkFGLC FUA5MGKBYMQ5RJCBklKrwTCbPy PQVHRlRcPTEHGRVuHF4IZtabAR BOVFJLMiwgTlRSSzMsIFJFVCwg Kw7UNHosTI4MGcBVGh7goFNsWR KccrYPS6mrQ6YatZUhKO9krplo lbB8YR6eme0qjVQiAW79nTIuYY RpnPUwoXEjv8PxBtmpABFsPc60 JBUudYPqiJ5dxhWsPjMjiYhwJ8 DoKDPcFSQqOWNyxRVibgZuOE6t X3Wkl45uSVLir0FzFlx5DTrtBi Z5HET4GFIutNVyNLIwc2RxBHom R39gEC08TJSdHLK6UTPnXF95SZ NhbGxpbmcuXHBhclxwYXJccGFy fQ== [facility] Work Phone: [facility] Work Phone: Glucose Test strip manual (B ld) [Mass/Vol]on 04-02-2025 Glucose [Mass/Vol] 229 mg/dL High 74 - 99 mg/dL [facility] Interpretation and review of laboratory results Abnormal [facility] Glucose [Mass/Vol] 229 mg/dL High 74-99 [facility] Comment on above: Performed By: #### 2 341-6 ####DERRICK Hall ([id number])[facility] ([facility])[address] [place] [address] Glucose [Mass/Vol] 250 mg/dL High 74 - 99 mg/dL [facility] Interpretation and review of laboratory results Abnormal [facility] Glucose [Mass/Vol] 250 mg/dL High 74-99 [facility] Comment on above: Performed By: #### 2 341-6 ####DERRICK Hall ([id number])[facility] ([facility])[id number] [place] [address] Glucose [Mass/Vol] 220 mg/dL High 74 - 99 mg/dL [facility] Interpretation and review of laboratory results Abnormal [facility] Glucose [Mass/Vol] 220 mg/dL High 74-99 [facility] Comment on above: Performed By: #### 2 341-6 ####DERRICK Hall ([id number])[facility] ([facility])[id number] [place] [address] Glucose [Mass/Vol] 179 mg/dL High 74 - 99 mg/dL [facility] Interpretation and review of laboratory results Abnormal [facility] Glucose [Mass/Vol] 179 mg/dL High 74-99 [facility] Comment on above: Performed By: #### 2 341-6 ####DERRICK Hall ([id number])[facility] ([facility])[id number] [place] [address] Magnesiumon 04-02-2025 Magnesium [Mass/Vol] 2.07 mg/dL 1.60 - 2.40 mg/dL [facility] Magnesium [Mass/Vol] 2.07 mg/dL Normal 1.60-2.40 [facility] Comment on above: Performed By: #### 1 9123-9 ####DERRICK Hall ([id number])[facility] ([facility])[id number] [place] [address] Magnesium [Mass/Vol]on 04-02 Interpretation and review of laboratory results Normal [facility] NM Whole body Bone Viewson 0 04-02-2025 UH MMODAL UH MMODAL [facility] Work Phone: NM Whole body Bone ViewsOrde red By: Barbrakymjose Ugalde on 04-02-2025 [facility] Work Phone: No Panel Informationon 04-02 [facility] Renal function 2000 panelon 04-02-2025 Albumin BCP dye [Mass/Vol] 3.1 g/dL Low 3.4 - 5.0 g/dL [facility] Anion gap [Moles/Vol] 12 mmol/L 10 - 2 0 mmol/L [facility] Calcium [Mass/Vol] 9.5 mg/dL 8.6 - 10. 6 mg/dL [facility] Chloride [Moles/Vol] 97 mmol/L Low 98 - 10 7 mmol/L [facility] CO2 [Moles/Vol] 29 mmol/L 21 - 32 mmol/L [facility] Creatinine [Mass/Vol] 0.61 mg/dL 0.50 - 1.05 mg/dL [facility] eGFR - PINF [facility] Glucose [Mass/Vol] 202 mg/dL High 74 - 99 mg/dL [facility] Interpretation and review of laboratory results Abnormal [facility] Phosphate [Mass/Vol] 2.8 mg/dL 2.5 - 4 .9 mg/dL [facility] [facility] Potassium [Moles/Vol] 4.0 mmol/L 3.5 - 5.3 mmol/L [facility] Sodium [Moles/Vol] 134 mmol/L Low 136 - 145 mmol/L [facility] Urea nitrogen [Mass/Vol] 12 mg/dL 6 - 23 mg/dL [facility] Albumin BCP dye [Mass/Vol] 3.1 g/dL Low 3.4-5.0 [facility] Comment on above: Performed By: #### 2 4362-6 ####DERRICK Hall ([id number])[facility] ([facility])[address] [place] [address] Anion gap [Moles/Vol] 12 mmol/L Normal 10-20 [facility] Comment on above: Performed By: #### 2 4362-6 ####DERRICK BRAR L ([id number])[facility] ([facility])[address] [place] [address] Calcium [Mass/Vol] 9.5 mg/dL Normal 8.6-10.6 [facility] Comment on above: Performed By: #### 2 4362-6 ####DERRICK SIMER L ([id number])[facility] ([facility])[address] [place] [address] Chloride [Moles/Vol] 97 mmol/L Low 98-107 [facility] Comment on above: Performed By: #### 2 4362-6 ####DERRICK BRAR L ([id number])[facility] ([facility])[address] [place] [address] CO2 [Moles/Vol] 29 mmol/L Normal 21-32 [facility] Comment on above: Performed By: #### 2 4362-6 ####DERRICK BRAR L ([id number])[facility] ([facility])[address] [place] [address] Creatinine [Mass/Vol] 0.61 mg/dL Normal 0.50-1.05 [facility] Comment on above: Performed By: #### 2 4362-6 ####DERRICK CHOUDHARYMOTZER L ([id number])[facility] ([facility])[address] [place] [address] Glomerular filtration rate >90 Normal >60 [facility] Comment on above: Result Comment: Calc ulations of estimated GFR are performed using the 2020 CKD-EPI Study Refit equation without the race variable for the IDMS-Traceable creatinine methods.https://jasn.asnjournals.org/content/early/ N.9341611338 Performed By: #### 2 4362-6 ####DERRICK BRAR L ([id number])[facility] ([facility])[address] [place] [address] Glucose [Mass/Vol] 202 mg/dL High 74-99 [facility] Comment on above: Performed By: #### 2 4362-6 ####DERRICK Hall ([id number])[facility] ([facility])[address] [place] [address] Phosphate [Mass/Vol] 2.8 mg/dL Normal 2.5-4.9 [facility] Comment on above: Performed By: #### 2 4362-6 ####DERRICK Hall ([id number])[facility] ([facility])[address] [place] [address] Potassium [Moles/Vol] 4.0 mmol/L Normal 3.5-5.3 [facility] Comment on above: Performed By: #### 2 4362-6 ####DERRICK Hall ([id number])[facility] ([facility])[address] [place] [address] Sodium [Moles/Vol] 134 mmol/L Low 136-145 [facility] Comment on above: Performed By: #### 2 4362-6 ####DERRICK Hall ([id number])[facility] ([facility])[address] [place] [address] Urea nitrogen [Mass/Vol] 12 mg/dL Normal 6-23 [facility] Comment on above: Performed By: #### 2 4362-6 ####DERRICK Hall ([id number])[facility] ([facility])[address] [place] [address] Albumin BCP dye [Mass/Vol] 3.1 g/dL Low 3.4 - 5.0 g/dL [facility] Anion gap [Moles/Vol] 13 mmol/L 10 - 2 0 mmol/L [facility] Calcium [Mass/Vol] 9.3 mg/dL 8.6 - 10. 6 mg/dL [facility] Chloride [Moles/Vol] 99 mmol/L 98 - 10 7 mmol/L [facility] CO2 [Moles/Vol] 28 mmol/L 21 - 32 mmol/L [facility] Creatinine [Mass/Vol] 0.49 mg/dL Low 0.50 - 1.05 mg/dL [facility] eGFR - PINF [facility] Glucose [Mass/Vol] 155 mg/dL High 74 - 99 mg/dL [facility] Interpretation and review of laboratory results Abnormal [facility] Phosphate [Mass/Vol] 3.1 mg/dL 2.5 - 4 .9 mg/dL [facility] Potassium [Moles/Vol] 4.6 mmol/L 3.5 - 5.3 mmol/L [facility] Sodium [Moles/Vol] 135 mmol/L Low 136 - 145 mmol/L [facility] Urea nitrogen [Mass/Vol] 10 mg/dL 6 - 23 mg/dL [facility] Albumin BCP dye [Mass/Vol] 3.1 g/dL Low 3.4-5.0 [facility] Comment on above: Performed By: #### 2 4362-6 ####DERRICK Hall ([id number])[facility] ([facility])[address] [place] [address] Anion gap [Moles/Vol] 13 mmol/L Normal 10-20 [facility] Comment on above: Performed By: #### 2 4362-6 ####DERRICK Hall ([id number])[facility] ([facility])[address] [place] [address] Calcium [Mass/Vol] 9.3 mg/dL Normal 8.6-10.6 [facility] Comment on above: Performed By: #### 2 4362-6 ####DERRICK BRAR L ([id number])[facility] ([facility])[address] [place] [address] Chloride [Moles/Vol] 99 mmol/L Normal 98-107 [facility] Comment on above: Performed By: #### 2 4362-6 ####DERRICK Hall ([id number])[facility] ([facility])[address] [place] [address] CO2 [Moles/Vol] 28 mmol/L Normal 21-32 [facility] Comment on above: Performed By: #### 2 4362-6 ####DERRICK Hall ([id number])[facility] ([facility])[address] [place] [address] Creatinine [Mass/Vol] 0.49 mg/dL Low 0.50-1.05 [facility] Comment on above: Performed By: #### 2 4362-6 ####DERRICK Hall ([id number])[facility] ([facility])[address] [place] [address] Glomerular filtration rate >90 Normal >60 [facility] Comment on above: Result Comment: Calc ulations of estimated GFR are performed using the 2020 CKD-EPI Study Refit equation without the race variable for the IDMS-Traceable creatinine methods.https://jasn.asnjournals.org/content/early/ N.6879836256 Performed By: #### 2 4362-6 ####DERRICK Hall ([id number])[facility] ([facility])[address] [place] [address] Glucose [Mass/Vol] 155 mg/dL High 74-99 [facility] Comment on above: Performed By: #### 2 4362-6 ####DERRICK Hall ([id number])[facility] ([facility])[address] [place] [address] Phosphate [Mass/Vol] 3.1 mg/dL Normal 2.5-4.9 [facility] Comment on above: Performed By: #### 2 4362-6 ####DERRICK Hall ([id number])[facility] ([facility])[address] [place] [address] Potassium [Moles/Vol] 4.6 mmol/L Normal 3.5-5.3 [facility] Comment on above: Performed By: #### 2 4362-6 ####DERRICK Hall ([id number])[facility] ([facility])[address] [place] [address] Sodium [Moles/Vol] 135 mmol/L Low 136-145 [facility] Comment on above: Performed By: #### 2 4362-6 ####DERRICK Hall ([id number])[facility] ([facility])[address] [place] [address] Urea nitrogen [Mass/Vol] 10 mg/dL Normal 6- [facility] Comment on above: Performed By: #### 2 4362-6 ####DERRICK BRAR L ([id number])[facility] ([facility])[address] [place] [address] XR CHEST 1 VIEWon 04-02-2025 XR CHEST 1 VIEW Normal [facility] XR Chest Single viewon 04-02 [facility] MMODAL [facility] MMODAL [facility] Work Phone: [facility] Work Phone: Radiology Study observation (narrative) [facility] Work Phone: CBC W Auto Differential pane l (Bld)on 04-01-2025 Basophils (Bld) [#/Vol] 0.03 10*3/uL [facility] Basophils/100 WBC (Bld) 0.3 % 0.0 - 2.0 % [facility] Eosinophils (Bld) [#/Vol] 0.23 10*3/uL [facility] Eosinophils/100 WBC (Bld) 2.5 % 0.0 - 6.0 % [facility] Erythrocyte distribution width (RBC) [Ratio] 12.8 % 11.5 - 14.5 % [facility] Hematocrit (Bld) [Volume fraction] 41.1 % 36.0 - 46.0 % [facility] Hemoglobin (Bld) [Mass/Vol] 12.8 g/dL 12.0 - 16.0 g/dL [facility] Immature granulocytes (Bld) [#/Vol] 0.07 10*3/uL [facility] Immature granulocytes/100 WBC (Bld) 0.8 % 0.0 - 0.9 % [facility] Interpretation and review of laboratory results Abnormal [facility] Lymphocytes (Bld) [#/Vol] 1.22 10*3/uL [facility] Lymphocytes/100 WBC (Bld) 13.1 % 13.0 - 44.0 % [facility] MCH (RBC) [Entitic mass] 30.9 pg 26.0 - 34.0 pg [facility] MCHC (RBC) [Mass/Vol] 31.1 g/dL Low 32.0 - 36.0 g/dL [facility] MCV (RBC) [Entitic vol] 99 fL 80 - 100 fL [facility] Monocytes (Bld) [#/Vol] 0.66 10*3/uL [facility] Monocytes/100 WBC (Bld) 7.1 % 2.0 - 10.0 % [facility] Neutrophils (Bld) [#/Vol] 7.10 10*3/uL [facility] Neutrophils/100 WBC (Bld) 76.2 % 40.0 - 80.0 % [facility] Nucleated RBC/100 WBC (Bld) [Ratio] 0.0 % [facility] Platelets (Bld) [#/Vol] 179 10*3/uL [facility] RBC (Bld) [#/Vol] 4.14 10*6/uL [facility] WBC (Bld) [#/Vol] 9.3 10*3/uL [facility] Basophils (Bld) [#/Vol] 0.03 x10*3/uL Normal 0.00-0.10 [facility] Comment on above: Performed By: #### 5 7021-8 ####DERRICK Hall ([id number])[facility] ([facility])[address] [place] [address] Basophils/100 WBC (Bld) 0.3 % Normal 0.0-2.0 [facility] Comment on above: Performed By: #### 5 7021-8 ####DERRICK Hall ([id number])[facility] ([facility])[address] [place] [address] Eosinophils (Bld) [#/Vol] 0.23 x10*3/uL Normal 0.00-0.70 [facility] Comment on above: Performed By: #### 5 7021-8 ####DERRICK Hall ([id number])[facility] ([facility])[address] [place] [address] Eosinophils/100 WBC (Bld) 2.5 % Normal 0.0-6.0 [facility] Comment on above: Performed By: #### 5 7021-8 ####DERRICK Hall ([id number])[facility] ([facility])[address] [place] [address] Erythrocyte distribution width (RBC) [Ratio] 12.8 % Normal 11.5-14.5 [facility] Comment on above: Performed By: #### 5 7021-8 ####DERRICK Hall ([id number])[facility] ([facility])[address] [place] [address] Hematocrit (Bld) [Volume fraction] 41.1 % Normal 36.0-46.0 [facility] Comment on above: Performed By: #### 5 7021-8 ####DERRICK Hall ([id number])[facility] ([facility])[address] [place] [address] Hemoglobin (Bld) [Mass/Vol] 12.8 g/dL Normal 12.0-16.0 [facility] Comment on above: Performed By: #### 5 7021-8 ####DERRICK Hall ([id number])[facility] ([facility])[address] [place] [address] Immature granulocytes (Bld) [#/Vol] 0.07 x10*3/uL Normal 0.00-0.70 [facility] Comment on above: Performed By: #### 5 7021-8 ####DERRICK Hall ([id number])[facility] ([facility])[address] [place] [address] Immature granulocytes/100 WBC (Bld) 0.8 % Normal 0.0-0.9 [facility] Comment on above: Result Comment: Arlen ture Granulocyte Count (IG) includes promyelocytes, myelocytes and metamyelocytes but does not include bands. Percent differential counts (%) should be interpreted in the context of the absolute cell counts (cells/UL). Performed By: #### 5 7021-8 ####DERRICK Hall ([id number])[facility] ([facility])[address] [place] [address] Lymphocytes (Bld) [#/Vol] 1.22 x10*3/uL Normal 1.20-4.80 [facility] Comment on above: Performed By: #### 5 7021-8 ####DERRICK Hall ([id number])[facility] ([facility])[address] [place] [address] Lymphocytes/100 WBC (Bld) 13.1 % Normal 13.0-44.0 [facility] Comment on above: Performed By: #### 5 7021-8 ####DERRICK Hall ([id number])[facility] ([facility])[address] [place] [address] MCH (RBC) [Entitic mass] 30.9 pg Normal 26.0-34.0 [facility] Comment on above: Performed By: #### 5 7021-8 ####DERRICK Hall ([id number])[facility] ([facility])[address] [place] [address] MCHC (RBC) [Mass/Vol] 31.1 g/dL Low 32.0-36.0 [facility] Comment on above: Performed By: #### 5 7021-8 ####DERRICK Hall ([id number])[facility] ([facility])[address] [place] [address] MCV (RBC) [Entitic vol] 99 fL Normal 80-100 [facility] Comment on above: Performed By: #### 5 7021-8 ####DERRICK Hall ([id number])[facility] ([facility])[address] [place] [address] Monocytes (Bld) [#/Vol] 0.66 x10*3/uL Normal 0.10-1.00 [facility] Comment on above: Performed By: #### 5 7021-8 ####DERRICK ALVESTZER L ([id number])[facility] ([facility])[address] [place] [address] Monocytes/100 WBC (Bld) 7.1 % Normal 2.0-10.0 [facility] Comment on above: Performed By: #### 5 7021-8 ####DERRICK SIMER L ([id number])[facility] ([facility])[address] [place] [address] Neutrophils (Bld) [#/Vol] 7.10 x10*3/uL Normal 1.20-7.70 [facility] Comment on above: Result Comment: Perc ent differential counts (%) should be interpreted in the context of the absolute cell counts (cells/uL). Performed By: #### 5 7021-8 ####DERRICK BRAR L ([id number])[facility] ([facility])[address] [place] [address] Neutrophils/100 WBC (Bld) 76.2 % Normal 40.0-80.0 [facility] Comment on above: Performed By: #### 5 7021-8 ####DERRICK Hall ([id number])[facility] ([facility])[address] [place] [address] Nucleated RBC/100 WBC (Bld) [Ratio] 0.0 /100 WBCs Normal 0.0-0.0 [facility] Comment on above: Performed By: #### 5 7021-8 ####DERRICK BRAR L ([id number])[facility] ([facility])[address] [place] [address] Platelets (Bld) [#/Vol] 179 x10*3/uL Normal 150-450 [facility] Comment on above: Performed By: #### 5 7021-8 ####DERRICK BRRA L ([id number])[facility] ([facility])[address] [place] [address] RBC (Bld) [#/Vol] 4.14 x10*6/uL Normal 4.00-5.20 [facility] Comment on above: Performed By: #### 5 7021-8 ####DERRICK Hall ([id number])[facility] ([facility])[address] [place] [address] WBC (Bld) [#/Vol] 9.3 x10*3/uL Normal 4.4-11.3 [facility] Comment on above: Performed By: #### 5 7021-8 ####DERRICK Hall ([id number])[facility] ([facility])[address] [place] [address] Glucose Test strip manual (B ld) [Mass/Vol]on 04-01-2025 Glucose [Mass/Vol] 193 mg/dL High 74 - 99 mg/dL [facility] Interpretation and review of laboratory results Abnormal [facility] Glucose [Mass/Vol] 193 mg/dL High 74-99 [facility] Comment on above: Performed By: #### 2 341-6 ####DERRICK Hall ([id number])[facility] ([facility])[address] [place] [address] Glucose [Mass/Vol] 188 mg/dL High 74 - 99 mg/dL [facility] Interpretation and review of laboratory results Abnormal [facility] Glucose [Mass/Vol] 188 mg/dL High 74-99 [facility] Comment on above: Performed By: #### 2 341-6 ####DERRICK Hall ([id number])[facility] ([facility])[address] [place] [address] Glucose [Mass/Vol] 208 mg/dL High 74 - 99 mg/dL [facility] Interpretation and review of laboratory results Abnormal [facility] Glucose [Mass/Vol] 208 mg/dL High 74-99 [facility] Comment on above: Performed By: #### 2 341-6 ####DERRICK Hall ([id number])[facility] ([facility])[address] [place] [address] Glucose [Mass/Vol] 211 mg/dL High 74 - 99 mg/dL [facility] Interpretation and review of laboratory results Abnormal [facility] Glucose [Mass/Vol] 211 mg/dL High 74-99 [facility] Comment on above: Performed By: #### 2 341-6 ####DERRICK Hall ([id number])[facility] ([facility])[address] [place] [address] Glucose [Mass/Vol] 171 mg/dL High 74 - 99 mg/dL [facility] Interpretation and review of laboratory results Abnormal [facility] Glucose [Mass/Vol] 171 mg/dL High 74-99 [facility] Comment on above: Performed By: #### 2 341-6 ####DERRICK Hall ([id number])[facility] ([facility])[address] [place] [address] Glucose [Mass/Vol] 174 mg/dL High 74 - 99 mg/dL [facility] Interpretation and review of laboratory results Abnormal [facility] Glucose [Mass/Vol] 174 mg/dL High 74-99 [facility] Comment on above: Performed By: #### 2 341-6 ####DERRICK Hall ([id number])[facility] ([facility])[address] [place] [address] Glucose [Mass/Vol] 210 mg/dL High 74 - 99 mg/dL [facility] Interpretation and review of laboratory results Abnormal [facility] Glucose [Mass/Vol] 210 mg/dL High 74-99 [facility] Comment on above: Performed By: #### 2 341-6 ####DERRICK Hall ([id number])[facility] ([facility])[address] [place] [address] Guidance for thoracentesis o f Cheston 04-01-2025 MMODAL [facility] MMODAL [facility] Work Phone: [facility] Work Phone: Magnesiumon 04-01-2025 Magnesium [Mass/Vol] 1.98 mg/dL 1.60 - 2.40 mg/dL [facility] Magnesium [Mass/Vol] 1.98 mg/dL Normal 1.60-2.40 [facility] Comment on above: Performed By: #### 1 9123-9 ####DERRICK Hall ([id number])[facility] ([facility])[address] [place] [address] Magnesium [Mass/Vol]on 04-01 Interpretation and review of laboratory results Normal [facility] NM Whole body Bone Viewson 0 04-01-2025 Radiology Study observation (narrative) [facility] Work Phone: No Panel Informationon 04-01 [facility] Pathologist review Darío (Unsp spec) [Interp]Ordered By: Lois Zambrano on 04-01-2025 Pathologist Review-Cell Count, Fluid Predominance of chronic inflammatory cells in a hemorrhagic background. No malignant cells identified. No organism identified. Cells identified as unclassified are reactive mesothelial cells. [facility] Work Phone: [facility] Work Phone: Rad Onc Msq Treatment Summar yon 04-01-2025 Actual Fractions Delivered 1 [facility] Actual Session Delivered Dose 800 cGray [facility] Actual Total Dose 800 cGray [facility] Course Number 1 [facility] Elapsed Days 0 [facility] Last Date 04/01/2025 [facility] Prescribed Fractional Dose 800 cGray [facility] Prescribed Number of Fractions 1 [facility] Prescribed Technique AP/PA [facility] Prescribed Total Dose 800 cGray [facility] Prescription Pattern Comment CBCT daily. Match on Melvin/Tspine [facility] Start Date 04/01/2025 [facility] Treatment Site [facility] Renal function 2000 panelon 04-01-2025 Albumin BCP dye [Mass/Vol] 3.1 g/dL Low 3.4 - 5.0 g/dL [facility] Anion gap [Moles/Vol] 13 mmol/L 10 - 2 0 mmol/L [facility] Calcium [Mass/Vol] 9.5 mg/dL 8.6 - 10. 6 mg/dL [facility] Chloride [Moles/Vol] 99 mmol/L 98 - 10 7 mmol/L [facility] CO2 [Moles/Vol] 27 mmol/L 21 - 32 mmol/L [facility] Creatinine [Mass/Vol] 0.55 mg/dL 0.50 - 1.05 mg/dL [facility] eGFR - PINF [facility] Glucose [Mass/Vol] 169 mg/dL High 74 - 99 mg/dL [facility] Interpretation and review of laboratory results Abnormal [facility] Phosphate [Mass/Vol] 2.7 mg/dL 2.5 - 4 .9 mg/dL [facility] Potassium [Moles/Vol] 4.3 mmol/L 3.5 - 5.3 mmol/L [facility] Sodium [Moles/Vol] 135 mmol/L Low 136 - 145 mmol/L [facility] Urea nitrogen [Mass/Vol] 9 mg/dL 6 - 23 mg/dL [facility] Albumin BCP dye [Mass/Vol] 3.1 g/dL Low 3.4-5.0 [facility] Comment on above: Performed By: #### 2 4362-6 ####DERRICK Hall ([id number])[facility] ([facility])[address] [place] [address] Anion gap [Moles/Vol] 13 mmol/L Normal 10-20 [facility] Comment on above: Performed By: #### 2 4362-6 ####DERRICK Hall ([id number])[facility] ([facility])[address] [place] [address] Calcium [Mass/Vol] 9.5 mg/dL Normal 8.6-10.6 [facility] Comment on above: Performed By: #### 2 4362-6 ####DERRICK BRAR L ([id number])[facility] ([facility])[address] [place] [address] Chloride [Moles/Vol] 99 mmol/L Normal 98-107 [facility] Comment on above: Performed By: #### 2 4362-6 ####DERRICK ALVESTZCARIDAD L ([id number])[facility] ([facility])[address] [place] [address] CO2 [Moles/Vol] 27 mmol/L Normal 21-32 [facility] Comment on above: Performed By: #### 2 4362-6 ####DERRICK BRAR L ([id number])[facility] ([facility])[address] [place] [address] Creatinine [Mass/Vol] 0.55 mg/dL Normal 0.50-1.05 [facility] Comment on above: Performed By: #### 2 4362-6 ####DERRICK BRAR L ([id number])[facility] ([facility])[address] [place] [address] Glomerular filtration rate >90 Normal >60 [facility] Comment on above: Result Comment: Calc ulations of estimated GFR are performed using the 2020 CKD-EPI Study Refit equation without the race variable for the IDMS-Traceable creatinine methods.https://jasn.asnjournals.org/content/early// N.7951427618 Performed By: #### 2 4362-6 ####DERRICK CHOUDHARYMOTZER L ([id number])[facility] ([facility])[address] [place] [address] Glucose [Mass/Vol] 169 mg/dL High 74-99 [facility] Comment on above: Performed By: #### 2 4362-6 ####DERRICK CHOUDHARYMOTZER L ([id number])[facility] ([facility] [facility] [place] [address] Phosphate [Mass/Vol] 2.7 mg/dL Normal 2.5-4.9 [facility] Comment on above: Performed By: #### 2 4362-6 ####DERRICK Hall ([id number])[facility] ([facility])[address] [place] [address] Potassium [Moles/Vol] 4.3 mmol/L Normal 3.5-5.3 [facility] Comment on above: Performed By: #### 2 4362-6 ####DERRICK Hall ([id number])[facility] ([facility])[address] [place] [address] Sodium [Moles/Vol] 135 mmol/L Low 136-145 [facility] Comment on above: Performed By: #### 2 4362-6 ####DERRICK Hall ([id number])[facility] ([facility])[address] [place] [address] Urea nitrogen [Mass/Vol] 9 mg/dL Normal 6-23 [facility] Comment on above: Performed By: #### 2 4362-6 ####DERRICK Hall ([id number])[facility] ([facility])[address] [place] [address] Albumin BCP dye [Mass/Vol] 3.0 g/dL Low 3.4 - 5.0 g/dL [facility] Anion gap [Moles/Vol] 12 mmol/L 10 - 2 0 mmol/L [facility] Calcium [Mass/Vol] 9.0 mg/dL 8.6 - 10. 6 mg/dL [facility] Chloride [Moles/Vol] 101 mmol/L 98 - 10 7 mmol/L [facility] CO2 [Moles/Vol] 28 mmol/L 21 - 32 mmol/L [facility] Creatinine [Mass/Vol] 0.49 mg/dL Low 0.50 - 1.05 mg/dL [facility] eGFR - PINF [facility] Glucose [Mass/Vol] 156 mg/dL High 74 - 99 mg/dL [facility] Interpretation and review of laboratory results Abnormal [facility] Phosphate [Mass/Vol] 2.9 mg/dL 2.5 - 4 .9 mg/dL [facility] Potassium [Moles/Vol] 4.4 mmol/L 3.5 - 5.3 mmol/L [facility] Sodium [Moles/Vol] 137 mmol/L 136 - 145 mmol/L [facility] Urea nitrogen [Mass/Vol] 9 mg/dL 6 - 23 mg/dL [facility] Albumin BCP dye [Mass/Vol] 3.0 g/dL Low 3.4-5.0 [facility] Comment on above: Performed By: #### 2 4362-6 ####DERRICK Hall ([id number])[facility] ([facility])[address] [place] [address] Anion gap [Moles/Vol] 12 mmol/L Normal 10-20 [facility] Comment on above: Performed By: #### 2 4362-6 ####DERRICK Hall ([id number])[facility] ([facility])[address] [place] [address] Calcium [Mass/Vol] 9.0 mg/dL Normal 8.6-10.6 [facility] Comment on above: Performed By: #### 2 4362-6 ####DERRICK Hall ([id number])[facility] ([facility])[address] [place] [address] Chloride [Moles/Vol] 101 mmol/L Normal 98-107 [facility] Comment on above: Performed By: #### 2 4362-6 ####DERRICK BRAR L ([id number])[facility] ([facility])[address] [place] [address] CO2 [Moles/Vol] 28 mmol/L Normal 21-32 [facility] Comment on above: Performed By: #### 2 4362-6 ####DERRICK Hall ([id number])[facility] ([facility])[address] [place] [address] Creatinine [Mass/Vol] 0.49 mg/dL Low 0.50-1.05 [facility] Comment on above: Performed By: #### 2 4362-6 ####DERRICK Hall ([id number])[facility] ([facility])[address] [place] [address] Glomerular filtration rate >90 Normal >60 [facility] Comment on above: Result Comment: Calc ulations of estimated GFR are performed using the 2020 CKD-EPI Study Refit equation without the race variable for the IDMS-Traceable creatinine methods.https://jasn.asnjournals.org/content/early/ N.1010731827 Performed By: #### 2 4362-6 ####DERRICK Hall ([id number])[facility] ([facility])[address] [place] [address] Glucose [Mass/Vol] 156 mg/dL High 74-99 [facility] Comment on above: Performed By: #### 2 4362-6 ####DERRICK BRAR L ([id number])[facility] ([facility])[address] [place] [address] Phosphate [Mass/Vol] 2.9 mg/dL Normal 2.5-4.9 [facility] Comment on above: Performed By: #### 2 4362-6 ####DERRICK BRAR L ([id number])[facility] ([facility])[address] [place] [address] Potassium [Moles/Vol] 4.4 mmol/L Normal 3.5-5.3 [facility] Comment on above: Performed By: #### 2 4362-6 ####DERRICK CHOUDHARYMOTZER L ([id number])[facility] ([facility])[address] [place] [address] Sodium [Moles/Vol] 137 mmol/L Normal 136-145 [facility] Comment on above: Performed By: #### 2 4362-6 ####DERRICK BRAR L ([id number])[facility] ([facility])[address] [place] [address] Urea nitrogen [Mass/Vol] 9 mg/dL Normal 03-01 [facility] Comment on above: Performed By: #### 2 4362-6 ####DERRICK Hall ([id number])[facility] ([facility])[address] [place] [id number] [place]HT[place] HOLDOrdered By: Anastasiya ann on 04-01-2025 [facility] XR Chest Single viewon 04-01 [facility] MMODAL [facility] MMODAL [facility] Work Phone: [facility] Work Phone: Bacteriaon 03-31-2025 Bacteria identified Cx Nom (Body fld) Normal [facility] Comment on above: Performed By: #### 6 11-4 ####DERRICK Hall ([id number])[facility] ([facility])[id number] [place], [place] [id number] CBC W Auto Differential pane l (Bld)on 03-31-2025 Basophils (Bld) [#/Vol] 0.05 10*3/uL [facility] Basophils/100 WBC (Bld) 0.5 % 0.0 - 2.0 % [facility] Eosinophils (Bld) [#/Vol] 0.28 10*3/uL [facility] Eosinophils/100 WBC (Bld) 2.7 % 0.0 - 6.0 % [facility] Erythrocyte distribution width (RBC) [Ratio] 12.5 % 11.5 - 14.5 % [facility] Hematocrit (Bld) [Volume fraction] 42.3 % 36.0 - 46.0 % [facility] Hemoglobin (Bld) [Mass/Vol] 12.9 g/dL 12.0 - 16.0 g/dL [facility] Immature granulocytes (Bld) [#/Vol] 0.07 10*3/uL [facility] Immature granulocytes/100 WBC (Bld) 0.7 % 0.0 - 0.9 % [facility] Interpretation and review of laboratory results Abnormal [facility] Lymphocytes (Bld) [#/Vol] 1.23 10*3/uL [facility] Lymphocytes/100 WBC (Bld) 11.9 % 13.0 - 44.0 % [facility] MCH (RBC) [Entitic mass] 30.0 pg 26.0 - 34.0 pg [facility] MCHC (RBC) [Mass/Vol] 30.5 g/dL Low 32.0 - 36.0 g/dL [facility] MCV (RBC) [Entitic vol] 98 fL 80 - 100 fL [facility] Monocytes (Bld) [#/Vol] 0.70 10*3/uL [facility] Monocytes/100 WBC (Bld) 6.8 % 2.0 - 10.0 % [facility] Neutrophils (Bld) [#/Vol] 8.00 10*3/uL High [facility] Neutrophils/100 WBC (Bld) 77.4 % 40.0 - 80.0 % [facility] Nucleated RBC/100 WBC (Bld) [Ratio] 0.0 % [facility] Platelets (Bld) [#/Vol] 185 10*3/uL [facility] RBC (Bld) [#/Vol] 4.30 10*6/uL [facility] WBC (Bld) [#/Vol] 10.3 10*3/uL [facility] Basophils (Bld) [#/Vol] 0.05 x10*3/uL Normal 0.00-0.10 [facility] Comment on above: Performed By: #### 5 7021-8 ####DERRICK Hall ([id number])[facility] ([facility])[address] [place] [address] Basophils/100 WBC (Bld) 0.5 % Normal 0.0-2.0 [facility] Comment on above: Performed By: #### 5 7021-8 ####DERRICK Hall ([id number])[facility] ([facility])[address] [place] [address] Eosinophils (Bld) [#/Vol] 0.28 x10*3/uL Normal 0.00-0.70 [facility] Comment on above: Performed By: #### 5 7021-8 ####DERRICK Hall ([id number])[facility] ([facility])[address] [place] [address] Eosinophils/100 WBC (Bld) 2.7 % Normal 0.0-6.0 [facility] Comment on above: Performed By: #### 5 7021-8 ####DERRICK Hall ([id number])[facility] ([facility])[address] [place] [address] Erythrocyte distribution width (RBC) [Ratio] 12.5 % Normal 11.5-14.5 [facility] Comment on above: Performed By: #### 5 7021-8 ####DERRICK Hall ([id number])[facility] ([facility])[address] [place] [address] Hematocrit (Bld) [Volume fraction] 42.3 % Normal 36.0-46.0 [facility] Comment on above: Performed By: #### 5 7021-8 ####DERRICK Hall ([id number])[facility] ([facility])[address] [place] [address] Hemoglobin (Bld) [Mass/Vol] 12.9 g/dL Normal 12.0-16.0 [facility] Comment on above: Performed By: #### 5 7021-8 ####DERRICK Hall ([id number])[facility] ([facility])[address] [place] [address] Immature granulocytes (Bld) [#/Vol] 0.07 x10*3/uL Normal 0.00-0.70 [facility] Comment on above: Performed By: #### 5 7021-8 ####DERRICK BRAR L ([id number])[facility] ([facility])[address] [place] [address] Immature granulocytes/100 WBC (Bld) 0.7 % Normal 0.0-0.9 [facility] Comment on above: Result Comment: Arlen ture Granulocyte Count (IG) includes promyelocytes, myelocytes and metamyelocytes but does not include bands. Percent differential counts (%) should be interpreted in the context of the absolute cell counts (cells/UL). Performed By: #### 5 7021-8 ####DERRICK Hall ([id number])[facility] ([facility])[address] [place] [address] Lymphocytes (Bld) [#/Vol] 1.23 x10*3/uL Normal 1.20-4.80 [facility] Comment on above: Performed By: #### 5 7021-8 ####DERRICK Hall ([id number])[facility] ([facility])[address] [place] [address] Lymphocytes/100 WBC (Bld) 11.9 % Normal 13.0-44.0 [facility] Comment on above: Performed By: #### 5 7021-8 ####DERRICK Hall ([id number])[facility] ([facility])[address] [place] [address] MCH (RBC) [Entitic mass] 30.0 pg Normal 26.0-34.0 [facility] Comment on above: Performed By: #### 5 7021-8 ####DERRICK Hall ([id number])[facility] ([facility])[address] [place] [address] MCHC (RBC) [Mass/Vol] 30.5 g/dL Low 32.0-36.0 [facility] Comment on above: Performed By: #### 5 7021-8 ####DERRICK Hall ([id number])[facility] ([facility])[address] [place] [address] MCV (RBC) [Entitic vol] 98 fL Normal 80-100 [facility] Comment on above: Performed By: #### 5 7021-8 ####DERRICK Hall ([id number])[facility] ([facility])[address] [place] [address] Monocytes (Bld) [#/Vol] 0.70 x10*3/uL Normal 0.10-1.00 [facility] Comment on above: Performed By: #### 5 7021-8 ####DERRICK Hall ([id number])[facility] ([facility])[address] [place] [address] Monocytes/100 WBC (Bld) 6.8 % Normal 2.0-10.0 [facility] Comment on above: Performed By: #### 5 7021-8 ####DERRICK Hall ([id number])[facility] ([facility])[address] [place] [address] Neutrophils (Bld) [#/Vol] 8.00 x10*3/uL High 1.20-7.70 [facility] Comment on above: Result Comment: Perc ent differential counts (%) should be interpreted in the context of the absolute cell counts (cells/uL). Performed By: #### 5 7021-8 ####DERRICK Hall ([id number])[facility] ([facility])[address] [place] [address] Neutrophils/100 WBC (Bld) 77.4 % Normal 40.0-80.0 [facility] Comment on above: Performed By: #### 5 7021-8 ####DERRICK Hall ([id number])[facility] ([facility])[address] [place] [address] Nucleated RBC/100 WBC (Bld) [Ratio] 0.0 /100 WBCs Normal 0.0-0.0 [facility] Comment on above: Performed By: #### 5 7021-8 ####DERRICK Hall ([id number])[facility] ([facility])[address] [place] [address] Platelets (Bld) [#/Vol] 185 x10*3/uL Normal 150-450 [facility] Comment on above: Performed By: #### 5 7021-8 ####DERRICK Hall ([id number])[facility] ([facility])[address] [place] [address] RBC (Bld) [#/Vol] 4.30 x10*6/uL Normal 4.00-5.20 [facility] Comment on above: Performed By: #### 5 7021-8 ####DERRICK Hall ([id number])[facility] ([facility])[address] [place] [address] WBC (Bld) [#/Vol] 10.3 x10*3/uL Normal 4.4-11.3 [facility] Comment on above: Performed By: #### 5 7021-8 ####DERRICK Hall ([id number])[facility] ([facility])[address] [place] [address] Cell count panel (Body fld)o n 03-31-2025 Clarity (Body fld) Turbid Abnormal Clear [facility] Color (Body fld) Yellow Colorless, Straw, Yellow [facility] RBC Auto (Body fld) [#/Vol] 2000 /uL see comment [facility] WBC (Body fld) [#/Vol] 0.264 10*3/uL See Comment [facility] Clarity (Body fld) Turbid Abnormal Clear [facility] Comment on above: Order Comment: Body Fluid cell count reference ranges have not been established by [facility]. Reference ranges provided are based on published references. Performed By: #### 3 4556-1 ####DERRICK Hall ([id number])[facility] ([facility])[address] [place] [address] Color (Body fld) Yellow Normal Colorless, Straw, Yellow [facility] Comment on above: Order Comment: Body Fluid cell count reference ranges have not been established by [facility]. Reference ranges provided are based on published references. Performed By: #### 3 4556-1 ####DERRICK Hall ([id number])[facility] ([facility])[address] [place] [address] RBC Auto (Body fld) [#/Vol] 2000 /uL Normal see comment [facility] Comment on above: Order Comment: Body Fluid cell count reference ranges have not been established by [facility]. Reference ranges provided are based on published references. Result Comment: BAL/ Synovial/Peritoneal/Pericardial/Pleural Fluid Reference Range: 0 cells/uL Performed By: #### 3 4556-1 ####DERRICK Hall ([id number])[facility] ([facility])[address] [place] [address] WBC (Body fld) [#/Vol] 0.264 10*3/uL Normal See Comment [facility] Comment on above: Order Comment: Body Fluid cell count reference ranges have not been established by [facility]. Reference ranges provided are based on published references. Result Comment: BAL/ Synovial/Peritoneal/Pericardial/Pleural Fluid Reference Range: <500 cells/uL Performed By: #### 3 4556-1 ####DERRICK Hall ([id number])[facility] ([facility])[address] [place] [address] Differential panel (Body fld )on 03-31-2025 Cells Counted Total (Body fld) [#] 100 [facility] Eosinophils/100 WBC Manual cnt (Body fld) [facility] Lymphocytes/100 WBC Manual cnt (Body fld) 68 % see comment [facility] Monocytes+Macrophages /100 WBC Manual cnt (Body fld) 21 % see comment [facility] Neutrophils/100 WBC (Body fld) 6 % see comment [facility] Other cells/100 WBC Manual cnt (Body fld) 5 % High - 0 % [facility] Cells Counted Total (Body fld) [#] 100 Normal [facility] Comment on above: Order Comment: Body Fluid cell differential reference ranges have not been established by [facility]. Reference ranges provided are based on published references. Performed By: #### 2 9580-8 ####DERRICK Hall ([id number])[facility] ([facility])[address] [place] [address] Eosinophils/100 WBC Manual cnt (Body fld) Normal [facility] Comment on above: Order Comment: Body Fluid cell differential reference ranges have not been established by [facility]. Reference ranges provided are based on published references. Result Comment: BAL Reference Range: <1% Performed By: #### 2 9580-8 ####DERRICK ALVESTZER L ([id number])[facility] ([facility])[address] [place] [address] Lymphocytes/100 WBC Manual cnt (Body fld) 68 % Normal see comment [facility] Comment on above: Order Comment: Body Fluid cell differential reference ranges have not been established by [facility]. Reference ranges provided are based on published references. Result Comment: Syno vial/Peritoneal/Pericardial/Pleural Fluid Reference Range: <75%BAL Reference Range: <10% Performed By: #### 2 9580-8 ####DERRICK CHOUDHARYMOTZER L ([id number])[facility] ([facility])[address] [place] [address] Monocytes+Macrophages /100 WBC Manual cnt (Body fld) 21 % Normal see comment [facility] Comment on above: Order Comment: Body Fluid cell differential reference ranges have not been established by [facility]. Reference ranges provided are based on published references. Result Comment: Syno vial/Peritoneal/Pericardial/Pleural Fluid Reference Range: <70%BAL Reference Range: 87-100% Performed By: #### 2 9580-8 ####DERRICK SCHMOTZER L ([id number])[facility] ([facility])[address] [place] [address] Neutrophils/100 WBC (Body fld) 6 % Normal see comment [facility] Comment on above: Order Comment: Body Fluid cell differential reference ranges have not been established by [facility]. Reference ranges provided are based on published references. Result Comment: Syno vial/Peritoneal/Pericardial/Pleural Fluid Reference Range: <25%BAL Reference Range: <2% Performed By: #### 2 9580-8 ####DERRICK SCHMOTZER L ([id number])[facility] ([facility])[address] [place] [place] [address] Other cells/100 WBC Manual cnt (Body fld) 5 % High not established [facility] Comment on above: Order Comment: Body Fluid cell differential reference ranges have not been established by [facility]. Reference ranges provided are based on published references. Performed By: #### 2 9580-8 ####DERRICK CHOUDHARYMOTZER L ([id number])[facility] ([facility])[address] [place] [address] Glucoseon 03-31-2025 Glucose (Body fld) [Mass/Vol] 204 mg/dL Normal Not established [facility] Comment on above: Order Comment: The p erformance characteristics of this test have been validated on peritoneal/ascites, pleural, pericardial, drain, dialysate and liver/pancreatic cyst fluid by the [facility]. This test has not been approved by the FDA; however, such approval is not necessary. Performed By: #### 2 344-0 ####DERRICK Hall ([id number])[facility] ([facility])[address] [place] [address] Glucose Test strip manual (B ld) [Mass/Vol]on 03-31-2025 Glucose [Mass/Vol] 209 mg/dL High 74 - 99 mg/dL [facility] Interpretation and review of laboratory results Abnormal [facility] Glucose [Mass/Vol] 209 mg/dL High 74-99 [facility] Comment on above: Performed By: #### 2 341-6 ####DERRICK Hall ([id number])[facility] ([facility])[address] [place] [address] Glucose [Mass/Vol] 171 mg/dL High 74 - 99 mg/dL [facility] Interpretation and review of laboratory results Abnormal [facility] Glucose [Mass/Vol] 171 mg/dL High 74-99 [facility] Comment on above: Performed By: #### 2 341-6 ####DERRICK BRAR L ([id number])[facility] ([facility])[address] [place] [address] Glucose [Mass/Vol] 195 mg/dL High 74 - 99 mg/dL [facility] Interpretation and review of laboratory results Abnormal [facility] Glucose [Mass/Vol] 195 mg/dL High 74-99 [facility] Comment on above: Performed By: #### 2 341-6 ####DERRICK BRAR L ([id number])[facility] ([facility])[address] [place] [address] Glucose [Mass/Vol] 148 mg/dL High 74 - 99 mg/dL [facility] Interpretation and review of laboratory results Abnormal [facility] Glucose [Mass/Vol] 148 mg/dL High 74-99 [facility] Comment on above: Performed By: #### 2 341-6 ####DERRICK Hall ([id number])[facility] ([facility])[address] [place] [address] Glucose [Mass/Vol] 152 mg/dL High 74 - 99 mg/dL [facility] Interpretation and review of laboratory results Abnormal [facility] Glucose [Mass/Vol] 152 mg/dL High 74-99 [facility] Comment on above: Performed By: #### 2 341-6 ####DERRICK Hall ([id number])[facility] ([facility])[address] [place] [address] Glucose [Mass/Vol] 188 mg/dL High 74 - 99 mg/dL [facility] Interpretation and review of laboratory results Abnormal [facility] Glucose [Mass/Vol] 188 mg/dL High 74-99 [facility] Comment on above: Performed By: #### 2 341-6 ####DERRICK Hall ([id number])[facility] ([facility])[address] [place] [address] Glucose, Body Fluidon 2024 Glucose (Body fld) [Mass/Vol] 204 mg/dL Not established [facility] Guidance for thoracentesis o f Cheston 03-31-2025 Radiology Study observation (narrative) [facility] Work Phone: Lactate Dehydrogenaseon 03-10 [facility] Lactate to pyruvate reaction [Catalytic activity/Vol] 198 U/L 84 - 246 U/L [facility] Lactate Dehydrogenase, Body Fluidon 03-31-2025 LDH Lactate to pyruvate reaction (Body fld) [Catalytic activity/Vol] 193 U/L Not established. [facility] Lactate dehydrogenaseon 03-10 LDH Lactate to pyruvate reaction (Body fld) [Catalytic activity/Vol] 193 U/L Normal Not established. [facility] Comment on above: Order Comment: The p erformance characteristics of this test have been validated on peritoneal/ascites,pleural, pericardial and drain fluid by the performing [facility] laboratory. This test has not been approved by the FDA; however, such approval is not necessary. Performed By: #### 1 4803-1 ####DERRICK Hall ([id number])[facility] ([facility])[address] [place] [address] LDH Lactate to pyruvate reaction [Catalytic activity/Vol] 198 U/L Normal 84-246 [facility] Comment on above: Performed By: #### 1 4804-9 ####DERRICK Hall ([id number])[facility] ([facility])[address] [place] [address] Magnesiumon 03-31-2025 Magnesium [Mass/Vol] 1.99 mg/dL 1.60 - 2.40 mg/dL [facility] Magnesium [Mass/Vol] 1.99 mg/dL Normal 1.60-2.40 [facility] Comment on above: Performed By: #### 1 9123-9 ####DERRICK Hall ([id number])[facility] ([facility])[address] [place] [address] WHOLE BODYon 03-[address] WHOLE BODY Normal [facility] No Panel Informationon 03-31 Interpretation and review of laboratory results Abnormal [facility] Interpretation and review of laboratory results Normal [facility] Interpretation and review of laboratory results Abnormal [facility] Non-operator command support systems cytology studyon Non-gynecological cytology method study Normal [facility] Pathologist review Darío (Unsp spec) [Interp]on 03-31-2025 PATH REVIEW-CELL CT,FLUID Predominance of chronic inflammatory cells in a hemorrhagic background. No malignant cells identified. No organism identified. Cells identified as unclassified are reactive mesothelial cells. Normal [facility] Comment on above: Result Comment: Elec tronically signed out by Lois Zambrano MD on 04/01/25 at 2:03 PM.By the signature on this report, the individual or group listed as making the Final Interpretation/Diagnosis certifies that they have reviewed this case. Performed By: #### 5 9465-5 ####DERRICK Hall ([id number])[facility] ([facility])[address] [place] [address] Proteinon 03-31-2025 Protein (Body fld) [Mass/Vol] 2.4 g/dL Normal Not established [facility] Comment on above: Order Comment: The p erformance characteristics of this test have been validated on peritoneal/ascites,pleural, pericardial, drain, and liver/pancreatic cyst fluid by the [facility] laboratory. This test has not been approved by the FDA; however, such approval is not necessary. Performed By: #### 2 881-1 ####DERRICK Hall ([id number])[facility] ([facility])[address] [place] [address] Protein [Mass/Vol] 5.5 g/dL Low 6.4-8.2 [facility] Comment on above: Performed By: #### 2 885-2 ####DERRICK Hall ([id number])[facility] ([facility])[address] [place] [address] Protein, Totalon 03-31-2025 Protein [Mass/Vol] 5.5 g/dL Low 6.4 - 8.2 g/dL [facility] Protein, Total, Body Fluidon 03-31-2025 Protein (Body fld) [Mass/Vol] 2.4 g/dL Not established [facility] Renal function 2000 panelon 03-31-2025 Albumin BCP dye [Mass/Vol] 3.0 g/dL Low 3.4 - 5.0 g/dL [facility] Anion gap [Moles/Vol] 12 mmol/L 10 - 2 0 mmol/L [facility] Calcium [Mass/Vol] 9.2 mg/dL 8.6 - 10. 6 mg/dL [facility] Chloride [Moles/Vol] 99 mmol/L 98 - 10 7 mmol/L [facility] CO2 [Moles/Vol] 30 mmol/L 21 - 32 mmol/L [facility] Creatinine [Mass/Vol] 0.54 mg/dL 0.50 - 1.05 mg/dL [facility] eGFR - PINF [facility] Glucose [Mass/Vol] 194 mg/dL High 74 - 99 mg/dL [facility] Interpretation and review of laboratory results Abnormal [facility] Phosphate [Mass/Vol] 2.5 mg/dL 2.5 - 4 .9 mg/dL [facility] Potassium [Moles/Vol] 4.1 mmol/L 3.5 - 5.3 mmol/L [facility] Sodium [Moles/Vol] 137 mmol/L 136 - 145 mmol/L [facility] Urea nitrogen [Mass/Vol] 10 mg/dL 6 - 23 mg/dL [facility] Albumin BCP dye [Mass/Vol] 3.0 g/dL Low 3.4-5.0 [facility] Comment on above: Performed By: #### 2 4362-6 ####DERRICK Hall ([id number])[facility] ([facility])[address] [place] [address] Anion gap [Moles/Vol] 12 mmol/L Normal 10-20 [facility] Comment on above: Performed By: #### 2 4362-6 ####DERRICK Hall ([id number])[facility] ([facility])[address] [place] [address] Calcium [Mass/Vol] 9.2 mg/dL Normal 8.6-10.6 [facility] Comment on above: Performed By: #### 2 4362-6 ####DERRICK Hall ([id number])[facility] ([facility])[address] [place] [address] Chloride [Moles/Vol] 99 mmol/L Normal 98-107 [facility] Comment on above: Performed By: #### 2 4362-6 ####DERRICK Hall ([id number])[facility] ([facility])[address] [place] [address] CO2 [Moles/Vol] 30 mmol/L Normal 21-32 [facility] Comment on above: Performed By: #### 2 4362-6 ####DERRICK Hall ([id number])[facility] ([facility])[address] [place] [address] Creatinine [Mass/Vol] 0.54 mg/dL Normal 0.50-1.05 [facility] Comment on above: Performed By: #### 2 4362-6 ####DERRICK BRAR L ([id number])[facility] ([facility])[address] [place] [address] Glomerular filtration rate >90 Normal >60 [facility] Comment on above: Result Comment: Calc ulations of estimated GFR are performed using the 2020 CKD-EPI Study Refit equation without the race variable for the IDMS-Traceable creatinine methods.https://jasn.asnjournals.org/content/early/ N.2091207178 Performed By: #### 2 4362-6 ####DERRICK Hall ([id number])[facility] ([facility])[address] [place] [address] Glucose [Mass/Vol] 194 mg/dL High 74-99 [facility] Comment on above: Performed By: #### 2 4362-6 ####DERRICK Hall ([id number])[facility] ([facility])[address] [place] [address] Phosphate [Mass/Vol] 2.5 mg/dL Normal 2.5-4.9 [facility] Comment on above: Performed By: #### 2 4362-6 ####DERRICK BRAR L ([id number])[facility] ([facility])[address] [facility] [place] [address] Potassium [Moles/Vol] 4.1 mmol/L Normal 3.5-5.3 [facility] Comment on above: Performed By: #### 2 4362-6 ####DERRICK Hall ([id number])[facility] ([facility])[address] [place] [address] Sodium [Moles/Vol] 137 mmol/L Normal 136-145 [facility] Comment on above: Performed By: #### 2 4362-6 ####DERRICK Hall ([id number])[facility] ([facility])[address] [place] [address] Urea nitrogen [Mass/Vol] 10 mg/dL Normal 6-23 [facility] Comment on above: Performed By: #### 2 4362-6 ####DERRICK Hall ([id number])[facility] ([facility])[address] [place] [address] Albumin BCP dye [Mass/Vol] 2.9 g/dL Low 3.4 - 5.0 g/dL [facility] Anion gap [Moles/Vol] 12 mmol/L 10 - 2 0 mmol/L [facility] Calcium [Mass/Vol] 9.1 mg/dL 8.6 - 10. 6 mg/dL [facility] Chloride [Moles/Vol] 102 mmol/L 98 - 10 7 mmol/L [facility] CO2 [Moles/Vol] 29 mmol/L 21 - 32 mmol/L [facility] Creatinine [Mass/Vol] 0.41 mg/dL Low 0.50 - 1.05 mg/dL [facility] eGFR - PINF [facility] Glucose [Mass/Vol] 156 mg/dL High 74 - 99 mg/dL [facility] Phosphate [Mass/Vol] 2.8 mg/dL 2.5 - 4 .9 mg/dL [facility] Potassium [Moles/Vol] 3.8 mmol/L 3.5 - 5.3 mmol/L [facility] Sodium [Moles/Vol] 139 mmol/L 136 - 145 mmol/L [facility] Urea nitrogen [Mass/Vol] 11 mg/dL 6 - 23 mg/dL [facility] Albumin BCP dye [Mass/Vol] 2.9 g/dL Low 3.4-5.0 [facility] Comment on above: Performed By: #### 2 4362-6 ####DERRICK Hall ([id number])[facility] ([facility])[address] [place] [address] Anion gap [Moles/Vol] 12 mmol/L Normal 10-20 [facility] Comment on above: Performed By: #### 2 4362-6 ####DERRICK Hall ([id number])[facility] ([facility])[address] [place] [address] Calcium [Mass/Vol] 9.1 mg/dL Normal 8.6-10.6 [facility] Comment on above: Performed By: #### 2 4362-6 ####DERRICK Hall ([id number])[facility] ([facility])[address] [place] [address] Chloride [Moles/Vol] 102 mmol/L Normal 98-107 [facility] Comment on above: Performed By: #### 2 4362-6 ####DERRICK Hall ([id number])[facility] ([facility])[address] [place] [address] CO2 [Moles/Vol] 29 mmol/L Normal 21-32 [facility] Comment on above: Performed By: #### 2 4362-6 ####DERRICK Hall ([id number])[facility] ([facility])[address] [place] [address] Creatinine [Mass/Vol] 0.41 mg/dL Low 0.50-1.05 [facility] Comment on above: Performed By: #### 2 4362-6 ####DERRICK Hall ([id number])[facility] ([facility])[address] [place] [address] Glomerular filtration rate >90 Normal >60 [facility] Comment on above: Result Comment: Calc ulations of estimated GFR are performed using the 2020 CKD-EPI Study Refit equation without the race variable for the IDMS-Traceable creatinine methods.https://jasn.asnjournals.org/content// N.2124495478 Performed By: #### 2 4362-6 ####DERRICK Hall ([id number])[facility] ([facility])[address] [place] [address] Glucose [Mass/Vol] 156 mg/dL High 74-99 [facility] Comment on above: Performed By: #### 2 4362-6 ####DERRICK Hall ([id number])[facility] ([facility])[address] [place] [address] Phosphate [Mass/Vol] 2.8 mg/dL Normal 2.5-4.9 [facility] Comment on above: Performed By: #### 2 4362-6 ####DERRICK Hall ([id number])[facility] ([facility])[address] [place] [address] Potassium [Moles/Vol] 3.8 mmol/L Normal 3.5-5.3 [facility] Comment on above: Performed By: #### 2 4362-6 ####DERRICK Hall ([id number])[facility] ([facility])[address] [place] [address] Sodium [Moles/Vol] 139 mmol/L Normal 136-145 [facility] Comment on above: Performed By: #### 2 4362-6 ####DERRICK BRAR L ([id number])[facility] ([facility])[address] [place] [address] Urea nitrogen [Mass/Vol] 11 mg/dL Normal 6-23 [facility] Comment on above: Performed By: #### 2 4362-6 ####DERRICK BRAR L ([id number])[facility] ([facility])[address] [facility] [place] [address] US THORACENTESISon 5 US THORACENTESIS Normal [facility] XR CHEST 1 VIEWon 03-31-2025 XR CHEST 1 VIEW Normal [facility] XR Chest Single viewon 03-31 Radiology Study observation (narrative) [facility] Work Phone: [facility] MMODAL U[facility] MMODAL [facility] Work Phone: [facility] Work Phone: Radiology Study observation (narrative) [facility] Work Phone: pHon 03-31-2025 pH (Body fld) 7.44 Normal See Below [facility] Comment on above: Order Comment: Pleur al fluid:-pH < 7.3 usually seen in association with empyema, malignancy, collagen vascular disease, tuberculosis, esophageal rupture, or hemothorax-Parapneumonic effusion with pH > 7.3 usually resolves with medical therapy while a parapneumonic effusion with pH < 7.2 may require surgical drainage-Rheumatoid and malignant effusions with pH < 7.2 usually have a poor response to pleurodesis-pH < 6.0 may suggest esophageal ruptureThe pH of fluid from pleural effusions from other causes generally approximates that of serum (7.38-7.42)Peritoneal/Ascitic fluid:-pH < 7.32 or blood-ascitic fluid pH difference of > 0.10 and the presence of neutrophils suggests spontaneous bacterial peritonitis-pH < 7.15 may indicate poor prognosisThe pH of ascitic fluid in the absence of infection usually approximates that of serum (7.38-7.42).Pericardial fluid:-Rheumatic or purulent pericarditis may have a pH < 7.10-Malignancy, uremia, tuberculosis, and idiopathic disorders may fall in range of 7.20-7.30Synovial fluidThe pH of synovial fluid generally approximates that of serum (7.38-7.42). Performed By: #### 2 748-2 ####DERRICK Hall ([id number])[facility] ([facility])[address] [place] [address] pH (Body fld)Ordered By: Ashia Figueroa on 03-31-2025 [facility] pH, Body FluidOrdered By: Cy nthimanish Figueroa on 03-31-2025 pH (Body fld) 7.44 [pH] See Below [facility] CBC W Auto Differential pane l (Bld)on 03-30-2025 Basophils (Bld) [#/Vol] 0.04 10*3/uL [facility] Basophils/100 WBC (Bld) 0.4 % 0.0 - 2.0 % [facility] Eosinophils (Bld) [#/Vol] 0.30 10*3/uL [facility] Eosinophils/100 WBC (Bld) 3.0 % 0.0 - 6.0 % [facility] Erythrocyte distribution width (RBC) [Ratio] 12.5 % 11.5 - 14.5 % [facility] Hematocrit (Bld) [Volume fraction] 40.0 % 36.0 - 46.0 % [facility] Hemoglobin (Bld) [Mass/Vol] 12.8 g/dL 12.0 - 16.0 g/dL [facility] Immature granulocytes (Bld) [#/Vol] 0.06 10*3/uL [facility] Immature granulocytes/100 WBC (Bld) 0.6 % 0.0 - 0.9 % [facility] Interpretation and review of laboratory results Abnormal [facility] Lymphocytes (Bld) [#/Vol] 1.19 10*3/uL Low [facility] Lymphocytes/100 WBC (Bld) 11.7 % 13.0 - 44.0 % [facility] MCH (RBC) [Entitic mass] 31.4 pg 26.0 - 34.0 pg [facility] MCHC (RBC) [Mass/Vol] 32.0 g/dL 32.0 - 36.0 g/dL [facility] MCV (RBC) [Entitic vol] 98 fL 80 - 100 fL [facility] Monocytes (Bld) [#/Vol] 0.80 10*3/uL [facility] Monocytes/100 WBC (Bld) 7.9 % 2.0 - 10.0 % [facility] Neutrophils (Bld) [#/Vol] 7.76 10*3/uL High [facility] Neutrophils/100 WBC (Bld) 76.4 % 40.0 - 80.0 % [facility] Nucleated RBC/100 WBC (Bld) [Ratio] 0.0 % [facility] Platelets (Bld) [#/Vol] 201 10*3/uL [facility] RBC (Bld) [#/Vol] 4.08 10*6/uL [facility] WBC (Bld) [#/Vol] 10.2 10*3/uL [facility] Basophils (Bld) [#/Vol] 0.04 x10*3/uL Normal 0.00-0.10 [facility] Comment on above: Performed By: #### 5 7021-8 ####DERRICK Hall ([id number])[facility] ([facility])[address] [place] [address]60 Basophils/100 WBC (Bld) 0.4 % Normal 0.0-2.0 [facility] Comment on above: Performed By: #### 5 7021-8 ####DERRICK Hall ([id number])[facility] ([facility])[address] [place] [address] Eosinophils (Bld) [#/Vol] 0.30 x10*3/uL Normal 0.00-0.70 [facility] Comment on above: Performed By: #### 5 7021-8 ####DERRICK Hall ([id number])[facility] ([facility])[address] [place] [address] Eosinophils/100 WBC (Bld) 3.0 % Normal 0.0-6.0 [facility] Comment on above: Performed By: #### 5 7021-8 ####DERRICK Hall ([id number])[facility] ([facility])[address] [place] [address]99[address] Erythrocyte distribution width (RBC) [Ratio] 12.5 % Normal 11.5-14.5 [facility] Comment on above: Performed By: #### 5 7021-8 ####DERRICK Hall ([id number])[facility] ([facility])[address] [place] [address] Hematocrit (Bld) [Volume fraction] 40.0 % Normal 36.0-46.0 [facility] Comment on above: Performed By: #### 5 7021-8 ####DERRICK Hall ([id number])[facility] ([facility])[address] [place] [address] Hemoglobin (Bld) [Mass/Vol] 12.8 g/dL Normal 12.0-16.0 [facility] Comment on above: Performed By: #### 5 7021-8 ####DERRICK Hall ([id number])[facility] ([facility])[address] [place] [address]290 Immature granulocytes (Bld) [#/Vol] 0.06 x10*3/uL Normal 0.00-0.70 [facility] Comment on above: Performed By: #### 5 7021-8 ####DERRICK Hall ([id number])[facility] ([facility])[address] [place] [address]6971 Immature granulocytes/100 WBC (Bld) 0.6 % Normal 0.0-0.9 [facility] Comment on above: Result Comment: Arlen ture Granulocyte Count (IG) includes promyelocytes, myelocytes and metamyelocytes but does not include bands. Percent differential counts (%) should be interpreted in the context of the absolute cell counts (cells/UL). Performed By: #### 5 7021-8 ####DERRICK Hall ([id number])[facility] ([facility])[address] [place] [address] Lymphocytes (Bld) [#/Vol] 1.19 x10*3/uL Low 1.20-4.80 [facility] Comment on above: Performed By: #### 5 7021-8 ####DERRICK Hall ([id number])[facility] ([facility])[address] [place] [address] Lymphocytes/100 WBC (Bld) 11.7 % Normal 13.0-44.0 [facility] Comment on above: Performed By: #### 5 7021-8 ####DERRICK Hall ([id number])[facility] ([facility])[address] [place] [address] MCH (RBC) [Entitic mass] 31.4 pg Normal 26.0-34.0 [facility] Comment on above: Performed By: #### 5 7021-8 ####DERRICK Hall ([id number])[facility] ([facility])[address] [place] [address] MCHC (RBC) [Mass/Vol] 32.0 g/dL Normal 32.0-36.0 [facility] Comment on above: Performed By: #### 5 7021-8 ####DERRICK Hall ([id number])[facility] ([facility])[address] [place] [address] MCV (RBC) [Entitic vol] 98 fL Normal 80-100 [facility] Comment on above: Performed By: #### 5 7021-8 ####DERRICK Hall ([id number])[facility] ([facility])[address] [place] [address] Monocytes (Bld) [#/Vol] 0.80 x10*3/uL Normal 0.10-1.00 [facility] Comment on above: Performed By: #### 5 7021-8 ####DERRICK Hall ([id number])[facility] ([facility])[address] [place] [address] Monocytes/100 WBC (Bld) 7.9 % Normal 2.0-10.0 [facility] Comment on above: Performed By: #### 5 7021-8 ####DERRICK BRAR L ([id number])[facility] ([facility])[address] [place] [address] Neutrophils (Bld) [#/Vol] 7.76 x10*3/uL High 1.20-7.70 [facility] Comment on above: Result Comment: Perc ent differential counts (%) should be interpreted in the context of the absolute cell counts (cells/uL). Performed By: #### 5 7021-8 ####DERRICK Hall ([id number])[facility] ([facility])[address] [place] [address] Neutrophils/100 WBC (Bld) 76.4 % Normal 40.0-80.0 [facility] Comment on above: Performed By: #### 5 7021-8 ####DERRICK Hall ([id number])[facility] ([facility])[address] [place] [address] 31690 Nucleated RBC/100 WBC (Bld) [Ratio] 0.0 /100 WBCs Normal 0.0-0.0 [facility] Comment on above: Performed By: #### 5 7021-8 ####DERRICK Hall ([id number])[facility] ([facility])[address] [place] [address] Platelets (Bld) [#/Vol] 201 x10*3/uL Normal 150-450 [facility] Comment on above: Performed By: #### 5 7021-8 ####DERRICK Hall ([id number])[facility] ([facility])[address] [place] [address] RBC (Bld) [#/Vol] 4.08 x10*6/uL Normal 4.00-5.20 [facility] Comment on above: Performed By: #### 5 7021-8 ####DERRICK Hall ([id number])[facility] ([facility])[address] [place] [address] WBC (Bld) [#/Vol] 10.2 x10*3/uL Normal 4.4-11.3 [facility] Comment on above: Performed By: #### 5 7021-8 ####DERRICK BRAR L ([id number])[facility] ([facility])[address] [place] [address]407 CBC panel Auto (Bld)on 03-30 Erythrocyte distribution width (RBC) [Ratio] 12.6 % 11.5 - 14.5 % [facility] Hematocrit (Bld) [Volume fraction] 41.9 % 36.0 - 46.0 % [facility] Hemoglobin (Bld) [Mass/Vol] 13.3 g/dL 12.0 - 16.0 g/dL [facility] Interpretation and review of laboratory results Abnormal [facility] MCH (RBC) [Entitic mass] 30.9 pg 26.0 - 34.0 pg [facility] MCHC (RBC) [Mass/Vol] 31.7 g/dL Low 32.0 - 36.0 g/dL [facility] MCV (RBC) [Entitic vol] 97 fL 80 - 100 fL [facility] Nucleated RBC/100 WBC (Bld) [Ratio] 0.0 % [facility] Platelets (Bld) [#/Vol] 222 10*3/uL [facility] RBC (Bld) [#/Vol] 4.30 10*6/uL [facility] WBC (Bld) [#/Vol] 10.8 10*3/uL [facility] Erythrocyte distribution width (RBC) [Ratio] 12.6 % Normal 11.5-14.5 [facility] Comment on above: Performed By: #### 5 8410-2 ####DERRICK Hall ([id number])[facility] ([facility])[address] [place] [address]2011 Hematocrit (Bld) [Volume fraction] 41.9 % Normal 36.0-46.0 [facility] Comment on above: Performed By: #### 5 8410-2 ####DERRICK Hall ([id number])[facility] ([facility])[address] [place] [address] Hemoglobin (Bld) [Mass/Vol] 13.3 g/dL Normal 12.0-16.0 [facility] Comment on above: Performed By: #### 5 8410-2 ####DERRICK Hall ([id number])[facility] ([facility])[address] [place] [address] MCH (RBC) [Entitic mass] 30.9 pg Normal 26.0-34.0 [facility] Comment on above: Performed By: #### 5 8410-2 ####DERRICK Hall ([id number])[facility] ([facility])[address] [place] [address] MCHC (RBC) [Mass/Vol] 31.7 g/dL Low 32.0-36.0 [facility] Comment on above: Performed By: #### 5 8410-2 ####DERRICK Hall ([id number])[facility] ([facility])[address] [place] [address] MCV (RBC) [Entitic vol] 97 fL Normal 80-100 [facility] Comment on above: Performed By: #### 5 8410-2 ####DERRICK Hall ([id number])[facility] ([facility])[address] [place] [address] Nucleated RBC/100 WBC (Bld) [Ratio] 0.0 /100 WBCs Normal 0.0-0.0 [facility] Comment on above: Performed By: #### 5 8410-2 ####DERRICK Hall ([id number])[facility] ([facility])[address] [place] [address] Platelets (Bld) [#/Vol] 222 x10*3/uL Normal 150-450 [facility] Comment on above: Performed By: #### 5 8410-2 ####DERRICK Hall ([id number])[facility] [facility] [place] [address] RBC (Bld) [#/Vol] 4.30 x10*6/uL Normal 4.00-5.20 [facility] Comment on above: Performed By: #### 5 8410-2 ####DERRICK Hall ([id number])[facility] ([facility])[address] [place] [address] WBC (Bld) [#/Vol] 10.8 x10*3/uL Normal 4.4-11.3 [facility] Comment on above: Performed By: #### 5 8410-2 ####DERRICK Hall ([id number])[facility] ([facility])[address] [place] [address] Glucose Test strip manual (B ld) [Mass/Vol]on 03-30-2025 Glucose [Mass/Vol] 216 mg/dL High 74 - 99 mg/dL [facility] Interpretation and review of laboratory results Abnormal [facility] Glucose [Mass/Vol] 216 mg/dL High 74-99 [facility] Comment on above: Performed By: #### 2 341-6 ####DERRICK Hall ([id number])[facility] ([facility])[address] [place] [address] Glucose [Mass/Vol] 191 mg/dL High 74 - 99 mg/dL [facility] Interpretation and review of laboratory results Abnormal [facility] Glucose [Mass/Vol] 191 mg/dL High 74-99 [facility] Comment on above: Performed By: #### 2 341-6 ####DERRICK Hall ([id number])[facility] ([facility])[address] [place] [address] Glucose [Mass/Vol] 208 mg/dL High 74 - 99 mg/dL [facility] Interpretation and review of laboratory results Abnormal [facility] Glucose [Mass/Vol] 208 mg/dL High 74-99 [facility] Comment on above: Performed By: #### 2 341-6 ####DERRICK Hall ([id number])[facility] ([facility])[address] [place] [address] Glucose [Mass/Vol] 252 mg/dL High 74 - 99 mg/dL [facility] Interpretation and review of laboratory results Abnormal [facility] Glucose [Mass/Vol] 252 mg/dL High 74-99 [facility] Comment on above: Performed By: #### 2 341-6 ####DERRICK Hall ([id number])[facility] ([facility])[id number] [place] [address] Glucose [Mass/Vol] 266 mg/dL High 74 - 99 mg/dL [facility] Interpretation and review of laboratory results Abnormal [facility] Glucose [Mass/Vol] 266 mg/dL High 74-99 [facility] Comment on above: Performed By: #### 2 341-6 ####DERRICK Hall ([id number])[facility] ([facility])[address] [place] [address] Glucose [Mass/Vol] 190 mg/dL High 74 - 99 mg/dL [facility] Interpretation and review of laboratory results Abnormal [facility] Glucose [Mass/Vol] 190 mg/dL High 74-99 [facility] Comment on above: Performed By: #### 2 341-6 ####DERRICK Hall ([id number])[facility] ([facility])[address] [place] [address] Glucose [Mass/Vol] 189 mg/dL High 74 - 99 mg/dL [facility] Interpretation and review of laboratory results Abnormal [facility] Glucose [Mass/Vol] 189 mg/dL High 74-99 [facility] Comment on above: Performed By: #### 2 341-6 ####DERRICK Hall ([id number])[facility] ([facility])[address] [place] [address] Magnesiumon 03-30-2025 Magnesium [Mass/Vol] 2.06 mg/dL 1.60 - 2.40 mg/dL [facility] Magnesium [Mass/Vol] 2.06 mg/dL Normal 1.60-2.40 [facility] Comment on above: Performed By: #### 1 9123-9 ####DERRICK Hall ([id number])[facility] ([facility])[address] [place] [address] Magnesium [Mass/Vol]on 03-30 Interpretation and review of laboratory results Normal [facility] No Panel Informationon 03-30 These images are not reportable by radiology and will not be interpreted by Radiologists. IMAGING [facility] RAD ONC CT SIM IMAGES ONLYon 03-30-[address] SIM IMAGES ONLY These images are not reportable by radiology and will not be interpreted by Radiologists. Normal [facility] Renal function 2000 panelon 03-30-2025 Albumin BCP dye [Mass/Vol] 3.1 g/dL Low 3.4 - 5.0 g/dL [facility] Anion gap [Moles/Vol] 10 mmol/L 10 - 2 0 mmol/L [facility] Calcium [Mass/Vol] 9.6 mg/dL 8.6 - 10. 6 mg/dL [facility] Chloride [Moles/Vol] 97 mmol/L Low 98 - 10 7 mmol/L [facility] CO2 [Moles/Vol] 33 mmol/L High 21 - 32 mmol/L [facility] Creatinine [Mass/Vol] 0.48 mg/dL Low 0.50 - 1.05 mg/dL [facility] eGFR - PINF [facility] Glucose [Mass/Vol] 133 mg/dL High 74 - 99 mg/dL [facility] Interpretation and review of laboratory results Abnormal [facility] Phosphate [Mass/Vol] 2.0 mg/dL Low 2.5 - 4 .9 mg/dL [facility] Potassium [Moles/Vol] 3.6 mmol/L 3.5 - 5.3 mmol/L [facility] Sodium [Moles/Vol] 136 mmol/L 136 - 145 mmol/L [facility] Urea nitrogen [Mass/Vol] 13 mg/dL 6 - 23 mg/dL [facility] Albumin BCP dye [Mass/Vol] 3.1 g/dL Low 3.4-5.0 [facility] Comment on above: Performed By: #### 2 4362-6 ####DERRICK Hall ([id number])[facility] ([facility])[address] [place] [address] Anion gap [Moles/Vol] 10 mmol/L Normal 10-20 [facility] Comment on above: Performed By: #### 2 4362-6 ####DERRICK Hall ([id number])[facility] ([facility])[address] [place] [address] Calcium [Mass/Vol] 9.6 mg/dL Normal 8.6-10.6 [facility] Comment on above: Performed By: #### 2 4362-6 ####DERRICK BRAR L ([id number])[facility] ([facility])[address] [place] [address] Chloride [Moles/Vol] 97 mmol/L Low 98-107 [facility] Comment on above: Performed By: #### 2 4362-6 ####DERRICK BRAR L ([id number])[facility] ([facility])[address] [place] [address] CO2 [Moles/Vol] 33 mmol/L High 21-32 [facility] Comment on above: Performed By: #### 2 4362-6 ####DERRICK BRAR L ([id number])[facility] ([facility])[address] [place] [address] Creatinine [Mass/Vol] 0.48 mg/dL Low 0.50-1.05 [facility] Comment on above: Performed By: #### 2 4362-6 ####DERRICK BRAR L ([id number])[facility] ([facility])[address] [place] [address] GFR/1.73 sq M.predicted MDRD (S/P/Bld) [Vol rate/Area] mL/min/{1.73_m2} Normal >60 [facility] Comment on above: Result Comment: Calc ulations of estimated GFR are performed using the 2020 CKD-EPI Study Refit equation without the race variable for the IDMS-Traceable creatinine methods.https://jasn.asnjournals.org/content/early/ N.6291326963 Performed By: #### 2 4362-6 ####DERRICK Hall ([id number])[facility] ([facility])[address] [place] [address] Glucose [Mass/Vol] 133 mg/dL High 74-99 [facility] Comment on above: Performed By: #### 2 4362-6 ####DERRICK Hall ([id number])[facility] ([facility])[address] [place] [address] Phosphate [Mass/Vol] 2.0 mg/dL Low 2.5-4.9 [facility] Comment on above: Performed By: #### 2 4362-6 ####DERRICK Hall ([id number])[facility] ([facility])[address] [place] [address] Potassium [Moles/Vol] 3.6 mmol/L Normal 3.5-5.3 [facility] Comment on above: Performed By: #### 2 4362-6 ####DERRICK Hall ([id number])[facility] ([facility])[address] [place] [address] Sodium [Moles/Vol] 136 mmol/L Normal 136-145 [facility] Comment on above: Performed By: #### 2 4362-6 ####DERRICK Hall ([id number])[facility] ([facility])[address] [place] [address] Urea nitrogen [Mass/Vol] 13 mg/dL Normal 6-23 [facility] Comment on above: Performed By: #### 2 4362-6 ####DERRICK Hall ([id number])[facility] ([facility])[address] [place] [address] Albumin BCP dye [Mass/Vol] 2.9 g/dL Low 3.4 - 5.0 g/dL [facility] Anion gap [Moles/Vol] 11 mmol/L 10 - 2 0 mmol/L [facility] Calcium [Mass/Vol] 9.0 mg/dL 8.6 - 10. 6 mg/dL [facility] Chloride [Moles/Vol] 98 mmol/L 98 - 10 7 mmol/L [facility] CO2 [Moles/Vol] 32 mmol/L 21 - 32 mmol/L [facility] Creatinine [Mass/Vol] 0.42 mg/dL Low 0.50 - 1.05 mg/dL [facility] eGFR - PINF [facility] Glucose [Mass/Vol] 167 mg/dL High 74 - 99 mg/dL [facility] Interpretation and review of laboratory results Abnormal [facility] Phosphate [Mass/Vol] 3.0 mg/dL 2.5 - 4 .9 mg/dL [facility] Potassium [Moles/Vol] 3.1 mmol/L Low 3.5 - 5.3 mmol/L [facility] Sodium [Moles/Vol] 138 mmol/L 136 - 145 mmol/L [facility] Urea nitrogen [Mass/Vol] 15 mg/dL 6 - 23 mg/dL [facility] Albumin BCP dye [Mass/Vol] 2.9 g/dL Low 3.4-5.0 [facility] Comment on above: Performed By: #### 2 4362-6 ####DERRICK Hall ([id number])[facility] ([facility])[address] [place] [address] Anion gap [Moles/Vol] 11 mmol/L Normal 10-20 [facility] Comment on above: Performed By: #### 2 4362-6 ####DERRICK BRAR L ([id number])[facility] ([facility])[address] [place] [address] Calcium [Mass/Vol] 9.0 mg/dL Normal 8.6-10.6 [facility] Comment on above: Performed By: #### 2 4362-6 ####DERRICK CHOUDHARYMOTZCARIDAD L ([id number])[facility] ([facility])[address] [place] [address] Chloride [Moles/Vol] 98 mmol/L Normal 98-107 [facility] Comment on above: Performed By: #### 2 4362-6 ####DERRICK BRAR L ([id number])[facility] ([facility])[address] [place] [address] CO2 [Moles/Vol] 32 mmol/L Normal 21-32 [facility] Comment on above: Performed By: #### 2 4362-6 ####DERRICK Hall ([id number])[facility] ([facility])[address] [place] [address] Creatinine [Mass/Vol] 0.42 mg/dL Low 0.50-1.05 [facility] Comment on above: Performed By: #### 2 4362-6 ####DERRICK Hall ([id number])[facility] ([facility])[address] [place] [address] GFR/1.73 sq M.predicted MDRD (S/P/Bld) [Vol rate/Area] mL/min/{1.73_m2} Normal >60 [facility] Comment on above: Result Comment: Calc ulations of estimated GFR are performed using the 2020 CKD-EPI Study Refit equation without the race variable for the IDMS-Traceable creatinine methods.https://jasn.asnjournals.org/content/early/ N.1543906459 Performed By: #### 2 4362-6 ####DERRICK Hall ([id number])[facility] ([facility])[address] [place] [address] Glucose [Mass/Vol] 167 mg/dL High 74-99 [facility] Comment on above: Performed By: #### 2 4362-6 ####DERRICK Hall ([id number])[facility] ([facility])[address] [place] [address] Phosphate [Mass/Vol] 3.0 mg/dL Normal 2.5-4.9 [facility] Comment on above: Performed By: #### 2 4362-6 ####DERRICK Hall ([id number])[facility] ([facility])[address] [place] [address] Potassium [Moles/Vol] 3.1 mmol/L Low 3.5-5.3 [facility] Comment on above: Performed By: #### 2 4362-6 ####DERRICK Hall ([id number])[facility] ([facility])[address] [place] [address] Sodium [Moles/Vol] 138 mmol/L Normal 136-145 [facility] Comment on above: Performed By: #### 2 4362-6 ####DERRICK Hall ([id number])[facility] ([facility])[address] [place] [address] Urea nitrogen [Mass/Vol] 15 mg/dL Normal 6-23 [facility] Comment on above: Performed By: #### 2 4362-6 ####DERRICK Hall ([id number])[facility] ([facility])[address] [place] [address] XR CHEST 1 VIEWon 03-30-2025 XR CHEST 1 VIEW Normal [facility] XR Chest Single viewon 03-30 [facility] MM[facility]AL [facility] MM[facility]AL [facility] Work Phone: Radiology Study observation (narrative) [facility] Work Phone: XR Chest Single viewOrdered By: Con Dougherty on 03-30-2025 [facility] Work Phone: CBC W Auto Differential pane l (Bld)on 03-29-2025 Basophils (Bld) [#/Vol] 0.04 10*3/uL [facility] Basophils/100 WBC (Bld) 0.4 % 0.0 - 2.0 % [facility] Eosinophils (Bld) [#/Vol] 0.31 10*3/uL [facility] Eosinophils/100 WBC (Bld) 3.2 % 0.0 - 6.0 % [facility] Erythrocyte distribution width (RBC) [Ratio] 12.4 % 11.5 - 14.5 % [facility] Hematocrit (Bld) [Volume fraction] 41.7 % 36.0 - 46.0 % [facility] Hemoglobin (Bld) [Mass/Vol] 13.2 g/dL 12.0 - 16.0 g/dL [facility] Immature granulocytes (Bld) [#/Vol] 0.05 10*3/uL [facility] Immature granulocytes/100 WBC (Bld) 0.5 % 0.0 - 0.9 % [facility] Interpretation and review of laboratory results Abnormal [facility] Lymphocytes (Bld) [#/Vol] 1.04 10*3/uL Low [facility] Lymphocytes/100 WBC (Bld) 10.6 % 13.0 - 44.0 % [facility] MCH (RBC) [Entitic mass] 31.1 pg 26.0 - 34.0 pg [facility] MCHC (RBC) [Mass/Vol] 31.7 g/dL Low 32.0 - 36.0 g/dL [facility] MCV (RBC) [Entitic vol] 98 fL 80 - 100 fL [facility] Monocytes (Bld) [#/Vol] 0.88 10*3/uL [facility] Monocytes/100 WBC (Bld) 9.0 % 2.0 - 10.0 % [facility] Neutrophils (Bld) [#/Vol] 7.47 10*3/uL [facility] Neutrophils/100 WBC (Bld) 76.3 % 40.0 - 80.0 % [facility] Nucleated RBC/100 WBC (Bld) [Ratio] 0.0 % [facility] Platelets (Bld) [#/Vol] 205 10*3/uL [facility] RBC (Bld) [#/Vol] 4.24 10*6/uL [facility] WBC (Bld) [#/Vol] 9.8 10*3/uL [facility] Basophils (Bld) [#/Vol] 0.04 x10*3/uL Normal 0.00-0.10 [facility] Comment on above: Performed By: #### 5 7021-8 ####DERRICK Hall ([id number])[facility] ([facility])[address] [place] [address] Basophils/100 WBC (Bld) 0.4 % Normal 0.0-2.0 [facility] Comment on above: Performed By: #### 5 7021-8 ####DERRICK Hall ([id number])[facility] ([facility])[address] [place] [address] Eosinophils (Bld) [#/Vol] 0.31 x10*3/uL Normal 0.00-0.70 [facility] Comment on above: Performed By: #### 5 7021-8 ####DERRICK Hall ([id number])[facility] ([facility])[address] [place] [address] Eosinophils/100 WBC (Bld) 3.2 % Normal 0.0-6.0 [facility] Comment on above: Performed By: #### 5 7021-8 ####DERRICK Hall ([id number])[facility] ([facility])[address] [place] [address] Erythrocyte distribution width (RBC) [Ratio] 12.4 % Normal 11.5-14.5 [facility] Comment on above: Performed By: #### 5 7021-8 ####DERRICK Hall ([id number])[facility] ([facility])[address] [place] [address] Hematocrit (Bld) [Volume fraction] 41.7 % Normal 36.0-46.0 [facility] Comment on above: Performed By: #### 5 7021-8 ####DERRICK Hall ([id number])[facility] ([facility])[address] [place] [address] Hemoglobin (Bld) [Mass/Vol] 13.2 g/dL Normal 12.0-16.0 [facility] Comment on above: Performed By: #### 5 7021-8 ####DERRICK Hall ([id number])[facility] ([facility])[address] [place] [address] Immature granulocytes (Bld) [#/Vol] 0.05 x10*3/uL Normal 0.00-0.70 [facility] Comment on above: Performed By: #### 5 7021-8 ####DERRICK Hall ([id number])[facility] ([facility])[address] [place] [address] Immature granulocytes/100 WBC (Bld) 0.5 % Normal 0.0-0.9 [facility] Comment on above: Result Comment: Arlen ture Granulocyte Count (IG) includes promyelocytes, myelocytes and metamyelocytes but does not include bands. Percent differential counts (%) should be interpreted in the context of the absolute cell counts (cells/UL). Performed By: #### 5 7021-8 ####DERRICK Hall ([id number])[facility] ([facility])[address] [place] [address] Lymphocytes (Bld) [#/Vol] 1.04 x10*3/uL Low 1.20-4.80 [facility] Comment on above: Performed By: #### 5 7021-8 ####DERRICK Hall ([id number])[facility] ([facility])[address] [place] [address] Lymphocytes/100 WBC (Bld) 10.6 % Normal 13.0-44.0 [facility] Comment on above: Performed By: #### 5 7021-8 ####DERRICK Hall ([id number])[facility] ([facility])[address] [place] [address] MCH (RBC) [Entitic mass] 31.1 pg Normal 26.0-34.0 [facility] Comment on above: Performed By: #### 5 7021-8 ####DERRICK Hall ([id number])[facility] ([facility])[address] [place] [address] MCHC (RBC) [Mass/Vol] 31.7 g/dL Low 32.0-36.0 [facility] Comment on above: Performed By: #### 5 7021-8 ####DERRICK CHOUDHARYMOGAY Hall ([id number])[facility] ([facility])[address] [place] [address] MCV (RBC) [Entitic vol] 98 fL Normal 80-100 [facility] Comment on above: Performed By: #### 5 7021-8 ####DERRICK Hall ([id number])[facility] ([facility])[address] [place] [address] Monocytes (Bld) [#/Vol] 0.88 x10*3/uL Normal 0.10-1.00 [facility] Comment on above: Performed By: #### 5 7021-8 ####DERRICK BRAR L ([id number])[facility] ([facility])[address] [place] [address] Monocytes/100 WBC (Bld) 9.0 % Normal 2.0-10.0 [facility] Comment on above: Performed By: #### 5 7021-8 ####DERRICK BRAR L ([id number])[facility] ([facility])[address] [place] [address] Neutrophils (Bld) [#/Vol] 7.47 x10*3/uL Normal 1.20-7.70 [facility] Comment on above: Result Comment: Perc ent differential counts (%) should be interpreted in the context of the absolute cell counts (cells/uL). Performed By: #### 5 7021-8 ####DERRICK Hall ([id number])[facility] ([facility])[address] [place] [address] Neutrophils/100 WBC (Bld) 76.3 % Normal 40.0-80.0 [facility] Comment on above: Performed By: #### 5 7021-8 ####DERRICK BRAR L ([id number])[facility] ([facility])[address] [place] [address] Nucleated RBC/100 WBC (Bld) [Ratio] 0.0 /100 WBCs Normal 0.0-0.0 [facility] Comment on above: Performed By: #### 5 7021-8 ####DERRICK CHOUDHARYMOTZCARIDAD L ([id number])[facility] ([facility])[address] [place] [address] Platelets (Bld) [#/Vol] 205 x10*3/uL Normal 150-450 [facility] Comment on above: Performed By: #### 5 7021-8 ####DERRICK Hall ([id number])[facility] ([facility])[address] [place] [address] RBC (Bld) [#/Vol] 4.24 x10*6/uL Normal 4.00-5.20 [facility] Comment on above: Performed By: #### 5 7021-8 ####DERRICK Hall ([id number])[facility] ([facility])[address] [place] [address] WBC (Bld) [#/Vol] 9.8 x10*3/uL Normal 4.4-11.3 [facility] Comment on above: Performed By: #### 5 7021-8 ####DERRICK Hall ([id number])[facility] ([facility])[address] [place] [address] CBC panel Auto (Bld)on 03-29 Erythrocyte distribution width (RBC) [Ratio] 12.3 % 11.5 - 14.5 % [facility] Hematocrit (Bld) [Volume fraction] 40.5 % 36.0 - 46.0 % [facility] Hemoglobin (Bld) [Mass/Vol] 12.8 g/dL 12.0 - 16.0 g/dL [facility] Interpretation and review of laboratory results Abnormal [facility] MCH (RBC) [Entitic mass] 30.7 pg 26.0 - 34.0 pg [facility] MCHC (RBC) [Mass/Vol] 31.6 g/dL Low 32.0 - 36.0 g/dL [facility] MCV (RBC) [Entitic vol] 97 fL 80 - 100 fL [facility] Nucleated RBC/100 WBC (Bld) [Ratio] 0.0 % [facility] Platelets (Bld) [#/Vol] 194 10*3/uL [facility] RBC (Bld) [#/Vol] 4.17 10*6/uL [facility] WBC (Bld) [#/Vol] 11.3 10*3/uL [facility] Erythrocyte distribution width (RBC) [Ratio] 12.3 % Normal 11.5-14.5 [facility] Comment on above: Performed By: #### 5 8410-2 ####DERRICK Hall ([id number])[facility] ([facility])[address] [place] [address] Hematocrit (Bld) [Volume fraction] 40.5 % Normal 36.0-46.0 [facility] Comment on above: Performed By: #### 5 8410-2 ####DERRICK Hall ([id number])[facility] ([facility])[address] [place] [address] Hemoglobin (Bld) [Mass/Vol] 12.8 g/dL Normal 12.0-16.0 [facility] Comment on above: Performed By: #### 5 8410-2 ####DERRICK Hall ([id number])[facility] ([facility])[address] [place] [address] MCH (RBC) [Entitic mass] 30.7 pg Normal 26.0-34.0 [facility] Comment on above: Performed By: #### 5 8410-2 ####DERRICK Hall ([id number])[facility] ([facility])[address] [place] [address] MCHC (RBC) [Mass/Vol] 31.6 g/dL Low 32.0-36.0 [facility] Comment on above: Performed By: #### 5 8410-2 ####DERRICK Hall ([id number])[facility] ([facility])[address] [place] [address] MCV (RBC) [Entitic vol] 97 fL Normal 80-100 [facility] Comment on above: Performed By: #### 5 8410-2 ####DERRICK Hall ([id number])[facility] ([facility])[address] [place] [address] Nucleated RBC/100 WBC (Bld) [Ratio] 0.0 /100 WBCs Normal 0.0-0.0 [facility] Comment on above: Performed By: #### 5 8410-2 ####DERRICK Hall ([id number])[facility] ([facility])[address] [place] [address] Platelets (Bld) [#/Vol] 194 x10*3/uL Normal 150-450 [facility] Comment on above: Performed By: #### 5 8410-2 ####DERRICK Hall ([id number])[facility] ([facility])[address] [place] [address] RBC (Bld) [#/Vol] 4.17 x10*6/uL Normal 4.00-5.20 [facility] Comment on above: Performed By: #### 5 8410-2 ####DERRICK Hall ([id number])[facility] ([facility])[address] [place] [address] WBC (Bld) [#/Vol] 11.3 x10*3/uL Normal 4.4-11.3 [facility] Comment on above: Performed By: #### 5 8410-2 ####DERRICK Hall ([id number])[facility] ([facility])[address] [place] [address] Electrocardiogram, 12-lead P RN ACS symptomson 03-29-2025 Atrial Rate 105 BPM [facility] Work Phone: [phone] Q Onset 220 ms [facility] Work Phone: [phone] QRS Count 15 beats [facility] Work Phone: [phone] QRS Duration 132 ms [facility] Work Phone: [phone] QT Interval 392 ms [facility] Work Phone: [phone] QTC Calculation(Bazett) 490 ms [facility] Work Phone: [phone] QTC Fredericia 455 ms [facility] Work Phone: [phone] R [place] 112 degrees [facility] Work Phone: [phone] T [place] 105 degrees [facility] Work Phone: [phone] T Offset 416 ms [facility] Work Phone: [phone] Ventricular Rate 94 BPM [facility] Work Phone: [phone] MUSE [facility] Work Phone: [phone] [facility] Work Phone: [phone] Atrial Rate 86 BPM [facility] Work Phone: [phone] P [place] 43 degrees [facility] Work Phone: [phone] P Offset 191 ms [facility] Work Phone: [phone] P Onset 129 ms [facility] Work Phone: [phone] VA Interval 184 ms [facility] Work Phone: [phone] Q Onset 221 ms [facility] Work Phone: [phone] QRS Count 14 beats [facility] Work Phone: [phone] QRS Duration 124 ms [facility] Work Phone: [phone] QT Interval 382 ms [facility] Work Phone: [phone] QTC Calculation(Bazett) 457 ms [facility] Work Phone: [phone] QTC Fredericia 431 ms [facility] Work Phone: [phone] R [place] 103 degrees [facility] Work Phone: [phone] T [place] 121 degrees [facility] Work Phone: [phone] T Offset 412 ms [facility] Work Phone: [phone] Ventricular Rate 86 BPM [facility] Work Phone: [phone] MUSE [facility] Work Phone: [phone] [facility] Work Phone: [phone] Glucose Test strip manual (B ld) [Mass/Vol]on 03-29-2025 Glucose [Mass/Vol] 165 mg/dL High 74 - 99 mg/dL [facility] Interpretation and review of laboratory results Abnormal [facility] Glucose [Mass/Vol] 165 mg/dL High 74-99 [facility] Comment on above: Performed By: #### 2 341-6 ####DERRICK Hall ([id number])[facility] ([facility])[address] [place] [address] Glucose [Mass/Vol] 99 mg/dL 74 - 99 mg/dL [facility] Interpretation and review of laboratory results Normal [facility] Glucose [Mass/Vol] 99 mg/dL Normal 74-99 [facility] Comment on above: Performed By: #### 2 341-6 ####DERRICK Hall ([id number])[facility] ([facility])[address] [place] [address] Glucose [Mass/Vol] 109 mg/dL High 74 - 99 mg/dL [facility] Interpretation and review of laboratory results Abnormal [facility] Glucose [Mass/Vol] 136 mg/dL High 74 - 99 mg/dL [facility] Glucose [Mass/Vol] 146 mg/dL High 74 - 99 mg/dL [facility] Interpretation and review of laboratory results Abnormal [facility] Glucose [Mass/Vol] 140 mg/dL High 74 - 99 mg/dL [facility] Interpretation and review of laboratory results Abnormal [facility] Glucose [Mass/Vol] 191 mg/dL High 74 - 99 mg/dL [facility] Interpretation and review of laboratory results Abnormal [facility] Glucose [Mass/Vol] 91 mg/dL 74 - 99 mg/dL [facility] Interpretation and review of laboratory results Normal [facility] Glucose [Mass/Vol] 91 mg/dL Normal 74-99 [facility] Comment on above: Performed By: #### 2 341-6 ####DERRICK Hall ([id number])[facility] ([facility])[address] [place] [address] Glucose [Mass/Vol] 105 mg/dL High 74 - 99 mg/dL [facility] Interpretation and review of laboratory results Abnormal [facility] Glucose [Mass/Vol] 105 mg/dL High 74-99 [facility] Comment on above: Performed By: #### 2 341-6 ####DERRICK Hall ([id number])[facility] ([facility])[address] [place] [address] Glucose [Mass/Vol] 101 mg/dL High 74 - 99 mg/dL [facility] Interpretation and review of laboratory results Abnormal [facility] MR Brain WO and W contrast I Von 03-29-2025 MMODAL MMODAL Radiology Study observation (narrative) [facility] Work Phone: MR Brain WO and W contrast I VOrdered By: Lupe Green on 03-29-2025 [facility] Work Phone: Magnesiumon 03-29-2025 Magnesium [Mass/Vol] 2.02 mg/dL 1.60 - 2.40 mg/dL [facility] Magnesium [Mass/Vol] 2.02 mg/dL Normal 1.60-2.40 [facility] Comment on above: Performed By: #### 1 9123-9 ####DERRICK Hall ([id number])[facility] ([facility])[id number] [place] [address] Magnesium [Mass/Vol]on 03-29 Interpretation and review of laboratory results Normal [facility] No Panel Informationon 03-29 [facility] Non-gynecological cytology m ethod studyOrdered By: Peter Shirley on 03-29-2025 Disclaimer y4ltgGJvMILgkWJuFmFy MDAwXG Jjg1oeIZKmqWSoNsNqLmKkFoDf QmhhzGIeWPTsNdAav8xbq095eY Qfh8cfAJOaNwU4rGUlNBXawXbp pnv0pDcjEeZdQJGnr1gwizLkHu TgJKIrVANsTSGbvMmkicg5pFnl TiOjYHLplOwkOIUxBMf8hE01FA ExyH1zoYUdAMfjioBdGaF2UHaf YMUnJkJ3LIVuzNYuRYUlR4tcYG IuRLwxKDWoYTzgnRQgOCU7qRuu t0E9cDThfGWnxLlzMhCzGcHlRo SDj8XcRTs4eKzaW5CoEPWsZbN5 jQMaYDFqYChvYPRlTFCmirE8zQ wfsdKxa05mhVIjYUEcOGChVwSt T10sxv6qnK48vT33OFexzfT6vR Lky2Nrf28at990tQ5ctPRhLYD5 ZWLxOGDuzJApOHWmZKJ5CBKvuD ZaC9gyCTFeAN8gmfokDJedXUom OBQbkQI4UAIerTDmY5AaABUjNU seDYXevsh8LqCuOh2rxFCljMfe EDeaw4zbz1auxQQfUcu3SERaKt KdYupgKTeuy6Gan6udDTYtix1y WGP2fEUycMtxv8N5uABkVBJhsH TzkdSlHNAsCpX7BKycJL9nyh00 IDToLZT3go1vhXLxwJvkqjIuzK XvOSdlR1KrJSIqv224UPGoH7Qh ZWWsd0A5xbLsGeKcXKBryHN5gw Y7JXFuQOz3fATxpqB6whEbfRIu U9hemV2uAUZvGC8crnvbv7ppOA mbLTzlHGIizHI6iuG0KZQtuTJh M6WjsS4eYHUaOBwuJBFmkcr7Uz NoUs8ffZHviAzbSDtrAxegGDrx XHBnbmNvbnRccGduZGVjXHBsYW luXHBsYWluXGYwXGZzMjRccGFy SJbmw1XlifBcyKfrTFBlOQI9Ey D0UNO3QMS0SVj8oKZcAmSjmYxk URlmGBD2FoSnAPm6nBInHkLyiU p4DQKbTYP2PXy6ARd4tQA8LEWw rWu4AzBlZSI3CyduIWc8jZr1II XnoLl3UiSvRMK8GXXcCMCxnNnx pUiidZ5zUvUwHiOvNwflOF9nUX SxW8vugEIsDQJiDUBuM9kyDtNh fR9zeWwtUZzuQwUhDxKqWsJNqi Wau6FgpZ3jIAMwIaN1jEGhjsDc Y9IzgWDeqLQeJWW0onCmUXDxy3 OqFBLuc7L8qvIncfW6tTofPHWr EWMmcOExLZ3BVJNxXBOwWGOddf NdhD8lSYSza90sp20cisWlCRLd alHwHGAsZWBvyG0pKrJqTP4zqN f6SRAkyZPtmUMsThKuDXBoEZ15 okAbWOUQV8RuLnUrZXIZE1LwkY D3MGPmn6BnXkCknsQbxXNbcgRz XO0oYCTtjMCuneGiRWF0IAFnJM RTIiUcKXIiv3OuUT0xFDDyeAlk GBMswB9wc7AfVUCkx67qLCUWqH DrLMMey7IgrMIhn5EyOEEkCQGm wL4dZPMfVQ9uIRCyDUnqLKVvce Babo9lcuSaSUCnZOKvH4Gacbqi uHtqhlLkLWNuip5bqzYkRVA9OR SaNFCQBRTlmjSfSF85OO1dACQl hItzhR5gnRGeiACTpng3JBDamX U9KHrtw6EpkWCltoOYbHZ8TGqw cpDeYGGnqMHhoZISAZ83EHFiYT QaVXUIRYJuOU3bdnQby4UtriRq hHzyRTD7cNanLABim9WtyF5kE1 7ktFfzz2CzePMelpFeUGZvTEJc VrGIJJXeuclvca1xMDzmciL0GN Y7KBqmXGDiZGNpUq9uJZIazJ6n N7PpAAU5pnSnv1QeVqRWuKMtnV 02hTHsjk60WSUiWCCxX4GxPLDx AJAjYEvfmoMckBtgTSKfp39zjP OqxhFik7OmquMuADDsO9maLRVd cTHgiSYym7TugZ4qdPWqxfSqZC I5iTWiWPNrtJ1uIJVndRvzKNIz rU6bA7FmVQaxTw4gJGSizcefNY 9bke15DQ9qrnIzDT7aeeXiEU14 nhDiI5fXHXrpIVLzjLDgpMiuqL PsUMCfDJOplzTrhe8srVzeyMHk d11uoVF4rBZ2RDJzfS4wM9IjWY xtVo1kQAVjelynvAGixVrdXd1a DVJcJQChs2GriNRep0KoMPQxRC Vey6KjVTRop0j3xZWzoQRxh3Xg fFN3WETqj9BahAj0XASdrfJumn VqWLUuwaPfP55fxYYnaZSra5de U6jwz0FwtQ5mUFLynADtx4ItaT G5CVl0CejoQLC0 [facility] Work Phone: Laboratory comment Darío (Report) c4stnFAmMYKcm0igQYKolJWaMi EwMzNcZnRuYmpcdWMxIHtccnRm ZZlsy9RfV1ApZbAyWMnbyzDdAL XdIgimjbycQFRyRRT6jrAtIPLr DEijYDXzAOyxEy8fmOMqsAwgCc AdGPEsx9ntkuOPNMazTZGQTAt2 k7euBUHrClW5hCDsUYtbX9rqye GzpYXyU9Btm6BnWGa1oX01QEOc xT8awLYkYDtzznDiMhF4BQrtXU IvNdJ4JTVrsJLyNHGcD8cbLLMa FHwxQCDvEJlodFUfGPN0eClmf9 I5bSNkfLXvuFzqQyMrBzJfKuTP f5YuTOd4wLxiY9DhWQNyCdS7nG FoRTQpLIknAHVlCOJzinB9nY89 IWpbowY4qQGog6Dph19sl544tH 6abBEkWFV9YNIrIKAnjYJkNQKi WMC3RZRveIHqS8weRiBjyHRmQ3 LtDlDsgNNcK4AgIxGrwSEgN1Fd QwFcuOVxNFPqwUO8AZnyp522AG K3OzWeKK4yH1Opu4N5eK6ltXWn FEVuvVQaWbFaEPXqdc5ncWRkSN ucv9NuBAN8cyU7yASgiCHwFWAd VU22Uxmte1MhTdwmHFA4KUEqzu Crl6Ahe4dxHrTzuwUdD8ujP0Ra UQXjRFXnYTOgPjOcevGpg7Ayv9 RllKEgkJp1c8etRMSpOAGwaXcd b4lrUUW8GHFcJ7O3fDXmx3vkNX voGQEnoBN1khZ6CBiwTGYmsvB5 coA3OYhdHTHuiGP3zkH6DJapME DdWgQ8vbV7HSavOFWuBUR5YvPd XZVzd9ZxrtyaTnKvq4TspIGwSA rkL28mz949HBMkhaGyX9tnaRUx akvddRPsnxuuIHwayaB1XDTvXK BsYWluXGYxXGZzMjBcbGFuZzEw MzNcaGljaFxmMVxkYmNoXGYxXG eiL9srXeGxNrUzBPCWuMX9rYFb q4xgfkD9zVScGW7gJREriSTbex Ujl1W1WYY4lXTujA0zhZSnZOIe aZYbloJqtu74qBAhgNH3AHVkDI ErfTUkeT0yLDGuTOGEjP2cuDYK ouUcuuLpLETwmFrext8JvBMitx 6svFVyB7QmuNrllIDpSVUzCZDf nRqvyFPuWCNsCHFesaeea5HsIT KreSZeW3YtYB3zHRSafb71 [facility] Work Phone: Laboratory comment Darío (Report) k6jecBVySFNiyONlJmXwXSFaGE Ors1lwFQEygMAqCaStMyEmVyBu IloeeHNtKWIfUpGzi6fqi249hW Abr0xfTCAxJlF4lXIvMKWuT19f PLJHR209KAUqYDoec6fmu4XcEX IjaSLce2F0ALMYTYliQGMHJJn7 yHvbQ02in1I0KmzkX8jyMRQuXG RhM9WjSB9fBOYnQex3HYR9BIE1 CLLzHEGzB4RmHV0sBKVduGRiHU h9r6aczRscIIWtUYQ0t8bxLAnp yzEcNZ6rko7dpNv1o9wpmfPdZY IoIVGpkYQHKPFbL7MqkPnuKq5u wKk3oRokSciwZBN0Uqv5XQ9uue 34taq3yJixOHHwzznoPqX3VPtv YEAyazwxRRt6RSxsMSKdfTH3AG GhdPHiO0AdOTSsZU7xxaz7XRC9 EKvuPVNxUzY5ZXVnvOWfDOIckT srIQlxr427NJX5FvBlZZ9pG8Ys u3P3pI1duSFtTDJqlHPaSiGtXZ Qbtt1zyUDeFVegl1RlDFU8fxX8 vKQvnZGbXEBuIE44Hfkhg2VtZl mbZEH4ZWQpybBiw8Ein8cuHeMa tcLvP6sjD4KlWVDxDKHqEWMgYq LqanShn7Cth6WhuRLxpIs1v8bh QFAoYWYhfNgbj6llHYM1WEAjY7 D1qVHgt9zwXHnrJSHbuXC8hmY3 KUPwkSJbS7QopZ0bFNVaBX7zbc w1t3mgXXT1HTfkNSAoEuV8mnV6 YEBwhNBpGFFtyCwjBQdqj870WD R0JdFyGQFbe1FdQ7GngTxbH96l sWzkI42hHYGjnYasjN3hbTraqJ 5cZjBcZnMyNFxwYXJkXHBsYWlu XGYxXGZzMjBcbGFuZzEwMzNcaG gnuSzjHXquPoGpLTYuIYnrW6xo ZjFcZnMyMCBBMQlTbGlkZXMgT2 6slARbGr4hHygsM2huHFmiDUNw GWWdQBgOiZRjVLS2lZzaH0DfnV 6iS47hKFXkXcoTUwekoDDdMWOz ECCRBJDxURL2GZegWWHuUOFpGY 4MGE3DXDVqptANVX9iRFNzDiYt UXVpayBTdGFpbiBTbWVhciBOR1 cTWAacICYwBYZwILiFSDYsX5Hf eR9tI39oZPVsNizQBdavnCDyJE NdIOXIJXdjWuANgFtvPGS2PRwf RJXrCOXhAT7BRT8VONYsvxXYJQ 02CVBhcCBTdGFpbiBTbWVhciBO W5sOBSavNCUcGQIpAqrJaYLcCB I3nVoaW5RjrS1yY84rHMKiOhyT VmpjbSGoWYEpFIgGYXVsERB5KQ vmXTUzQSGpWM3KCP9CJLDtuwWV FX55TOHxIdFfICJclvGMkPPicv ILaWMvihDRF6gAZJxxQQNqHHDt NHVNDXZaCIR3GRkjIHUeLGJcSO 7ZMW5ISGOogyTMAkwMJKprEXSz w9JwMHpaYFVsJCGuYWrWXxHPJI ChicZLBKkQwOydHGShQ74guOUi Sn9vVbvnS1wrNYtfSIKqVyPeKF lVGJNuJ7KgzX1oJemYReIOmHry UHJlcAlccGFyIEIyCUNlbGwgQm dmV0zCERMmgiJBPy4mWAolHGom vYUmPXNhBHGwoNOhbtHFgtb9UK wUnkCDzX7rpuwOHEMkzcDBZA1e LQMxjZHRwFAgigTXD1iJCESysX 4JptFzUBqpXOYkTtJSD4BfoKGT yZ8lwtfyhEIrLWAvSBSCOERQEF tjLNXkTBNFN9tsRPMcLS2azEpd LY6qDSHcc6AmAHtpxEOlKADjSE TSMQXgQWK9UJagVE1QML8oEPvu blByZXAJXHBhciBEMglDZWxsIE Mot7ZyCOwgLKOtISZcOWnEJlDH XHBsYWluXGYxXGZzMjJcbGFuZz EwMzNcaGljaFxmMVxkYmNoXGYx XPvtQ9tsKkCiKuFuJmmdYOP7 [facility] Work Phone: Pathology report Cancer Narrative [facility] Work Phone: Pathology report final diagnosis Narrative x7rjaZYfHSLysYDgKDGiGovefp HcEWIqgTLeF3YnkxhfWYwhNX9q GS7ieYkdjKBnqSHxEMBzKkGpg6 vec157fEMlp4khCWKItwgiyGv8 w0idBEXZZKbaLLSLPIg6lYysX8 6vc3F4TrxkL1khAJRlPFvrjyKp rqL4GIVbhNGqHDx0UBDsxKAbdc IhCaNpVHZdiRRisPU9AJCnCW1t zzdsMAftIBgxUYDmtrL7LPWorC OaO8ZdHAPbXD2oplvsRZR1ZXkj RJThTAM0MnPnQTIdt5Zmyzm3Gk EgmKv9p1wsIIJcWVFdjZzxz5zq JRX2LGEtzHRqY3hhkX6lWIZbVY 2dczesu8dtYIsnNPqaMZKndNA9 lkX1NURjwFOwE6EhyJ0nELEyZX DdfgPhdTyhbQ3dJcUuPdRlBYxr VhQkMC3nZObpxDzvui2iCIH4Aj WjwUuhi47bhzggKgceZXYfWERi bGUgYXNwaXJhdGlvblxjZjAgLC JrrBLnyT9jcKXqpnRfE0WgpICg zQ1ruflxyCAjMWRyMEKdrXYsCG FsrNvdFQ62NVRstDbkNDHqele0 HCFdKcUalIEpz40dk98iuOsxC9 QppEDvGCJalZ8ekROuNCUana9d ECUeJT6qT0EvE8afy13cVlGnD2 AyZJ4rqFInUOVsxknyoeZwn7sk JLNqXOOsRLFkxuR0IGXciJKqkP UdaQIcCADcu6axT1yic8SwU1jb HL0cVkN4ECQeTnMmKrylLWNmrA YgMDFxwgb5zGTozLchOWIaNK4d NSR2zMUaYDFuq9WfybegbBYpNQ SmOM6hs9YxEHRxUJNxrzHyabQw dLk2jdB5oDobZEOjPPpeo7FaIE BchjShEMEqmCRlLLMyDMBgbA0n qD6hgYXlLLTpJWPjXWewORRkc0 UfAIFujqWxkP1pVBgmsd03AMQ4 c8msgHUbFZzaMxlbqHDntlY0HD rCLNDSSChCFoQrBG3wRLqTX7QD SEiEPaikFsWwLBzceWD1d1ulvG Uyq5l1PJigCAR6zG0hHFNpBVOu z6zmxSWzXKlaPrjvwOAkelM9AT oOYOGVMCfZAxXsRM2kUGiAV5PY NjU7Uwt4OIq7KVfbiZirNkwdjh PhfDRhVyYtlG2scDzyyM7tHwIi HvIeLOZeuTJzj0YjI7VzyUErJG NktEecckVcsuUsDY55fX5mNWPn dBkgeRlyItPcSK8aXQEruKWeiZ KxUKP8PYVyC6LsnDLjKRYmooly e8lgIUH3dSXvwbeiWiJveVWsNC KomqPGZuGSoX7zqVRap4JsBUFj NLGuiLdtv05iyfjtQifgGXUiGD VkbGUgYXNwaXJhdGlvblxjZjAg CDRkrXMavD1jfXKpqdVsO3UmwU ZjnT3eipxxT0OaOPCtsMFkHOPc IAccqaWen8gmAPj5wCQpr7dxNM WzVUOipIKhTsWbhzYiALurB52t anU6PEduUD86dMPfQJIlIFJpyo yrPtInaMIcEAIzztmyCACpCd8r YXomuSdity9qVPI9BEXpdUyav2 5hcnkgZmluZSBuZWVkbGUgYXNw aXJhdGlvblxjZjAgLCBjeXRvbG 9slPPufcIlC9DuvHSuyY7pcypm J4BoBQRpdPVpEDZoOWgghqGel0 hbZEz2eDAwr6xuXXZhXZEjgPKu OgFzekZzGKadF87gvnX0MAlkJJ 50aWZpZWQuXHBhclxjZjFcdGFi CWVveqvjUCAsQU8tJCoduRgngg 9tKAK9NBT6yD9ifbOsvFDnbQ8n MT8dOJMpQROqg1JqqmU4iP7zPQ ApCVFbPHS5fI2vv2b5GMMlQHHn JEooSXUkz1UbYctkPuVqHPnzTS ZaW3QsZBBpSXAsvAAdZIYnoVnm BC98NFJroKktEPHadrv8TMRoAf KwnEGbv51yu95tfYxrH0AuhNOr KTFfwS4nqHNxChP4n8LgBDBlgl 9vCGKlsP8viIOzPSIARPJdqj88 SX5foXZoGDEquxMBl0EfAfMFoF BdvS69vl0iwRPrqullMfPrKXIq j7FwDJNmn05khXsdRAGvoBvwiX 1bugmuuKhmLWF2oE1bCMNxnRuo CQYeWPLrr8QsaHm2ETAqg2XfQO WLTQTdTJrEO9gsJJLofaHvK5p1 BQCbufUghhKqUGHdcdJwMl2dBW V9BWmdg9XigI4qyTq7IBLwCuW0 hRWvHZIkatZlTXgbX23jh2wqKq foYDLpI4FoDPJozqm2VJPaoJOf CJarq3rwIFCviXOlCVQtkqb2HG BGTJNCLIzZHE5DLTBKBHHAQR3C UHaYIvDuCmZoMUjzCZDiC27DGb FDGPMIU66ZUWUJVIZNX1CJQCOC TUaFV2XYLT1ITTHDISLGBJ1DGP eXQmXHUXxDO8BOZE5WJSPXYMAX NI5EAoKfBYhHO8MIM9uCNJKrIL IQPUNFQJAmSlHRSN1jNCx2nA58 W25zML3elOaeJmQ6YkI2YO0xAN sRC4GJZ8xQIZTgPMZVIJGIRDOg ZI3JEMcJXI0PKOKkVQFJCXDWWG OdGoAQRF1vWQnVJC2YQTUsBMUN HABGKRLyDW9KUXKQBQ5BGPHYCR FDW61VAQGUMBXBE1JDP9lQAZJY FLXHJsIXGkWQTX0ENUVQVCPNXD 9FTkR9 [facility] Work Phone: Pathology report gross observation Narrative l5uovASiGGFtuIHIHTRaFZHjAD 1ezGjsdOn5xLfoDNEwidA3kCSj GIbfd5oxTGD9r1luwnOGSftkVL MoJokmFXSeyhpbKgG2GZjtARAd unysUTh5JNohWVFofRX9XKNfvD KhL6CiIRJqWR4rwht4PHJ1OFwt SLPtHeX4BLCyPPn3IIRcbvC8Wn daLJm6HZBfTVCefGKwv1W0AArt r2ioh6RzOIQiKBo3xF1Ft4whRt reL2txyhAvnRTyKxL6vPTqBZBa L35xOASVQ999ASnda8TitBHeVW e8NXhyTWAxI2OdP6HeWSmjQmVq RHpqAYYmQDTqZUuzVFRpD1IWTA XmTur0HGbaScQaCId5RKc3JCGE ATP6MYrmJNC4LSy0UKm1OPokvx bdSVy1EWSdTPshpRQhIC0yoVbq UzdyuFvgx2UhrGMrTZChIQachC QgNTEwMDIgXFxkYiBPVlIgIiAy VDA2ISXzGJVnCXz4JLnrH1EDFT UoQIEqRKv8AFa6GnS1ZVx2AHFB Wq9bGKV9JKMqPmnaTJW0YCDjPP BcXHQgMiBcXHNzIDMgXFxmbCBc IU7wiVvwGMFrBH2VBSVrPYncLO pfziwwPSGnVAGzQmIrXT6yMFmL UIrdVx9XJXF1RMPbKAZTSY9AEE JZIEZJTkUgTkVFRExFIEFTUElS YQHUC22lPSw9ndSkJAEgDYIgAh BnuZPcCY3OYDEdgvFwAEywzHsk dQ3htYGmO4tvyOJyVzSxGoQvSo xlcGljTmVzdERvYzEgDQpccGFy VUjguDAwGTGzyLq4LLFbGY0USY GrEvUuWyPgGCp8DJPoIMYoYSnm MAV8JXVkFEJslkMlCDSgyTKvEW NtSTXhIWnwWb0XqYtxZPFgKHM4 QHCprcW3IDEwnRIjUDPjotScUE UxcIeiLNDva2YoW5O4CQAzJQiq c3yqBQXtWOebu1GmVAiBHZJNIT 7FTS0pbTG0IFbVCFRHM0dQvUSr GzCdnBO5VM04APPbTMIecPQyBZ tfP354ecSvz6bglURsGExqMuxn iLJqauD2JHtFZMGMMCiMScDmWI 2kIHzDA0AQDaS0SmBnETB8GUil yUpcTvxmvhNepILgPiZEiD1ksN mnuA2hjHMnL2ugsMKzJtJpYoEg DZXmECNre1WeV4U3BSMdEUijp1 hxRQIxIPsxx3FnFRrOJNQJQM7C DT4omVV2CUmOWGFRF9vGsQAfDb Z0bNG0Nb47BNUfBQBzyOArTGyb Z924pQQ4tMipLjkdxUY5AAchFd vqaH2jwCHEGXHXOxqMAzodqcYv QL1QWBDJUF1ZzCHmAaN8zMA6Wp 38RCEsOHNijUUrUWmyV762LDIn UAckGXu2anXoXIlsjczaZIHeVo AiRM6rHFNoLQIqfB7gQCDgeoJW lXYsbZg5OIyexa42GRI0g9kekG HoCNnnQiyzwUHwkxC4NJhMYFRK KQbTLyQnSD9fABbHT2LFBXxPMy qhMZYpWPfjrSL1f2lhjLPqk5o7 KItePBH4gZuujTv3XPJhHTpmk0 luYVVgZEifb7GhPLgXUTIJKX2Y VM8hcOI5SYxNRJQQZVunAFUaFW ituTT8q8vvpQLzv5h1MRkvZIE6 sHskmRTsfniqqCEoaInyPY7uQR bzctEcUCAuGFA7hGElZEKsTDzb GWQgQAfxf0LtVFzqyEegORMtAq ZaREzfTBZfM27xj5UMm6Fbl0tm nXguv6PvsCLgFD0sdBNsIF8Dn4 daXRRikUZoPKF1NXsws0elYPkt SMC0EQAmGtLzTHFtYX7TEmVxUW T1Tuo8JmYxEbQ5YMj1IZMLXmWb XnYkCbR6QzwuCncxKHs1RRv6LU zSWoQkCvslUJY8DbC6SYQ5QON4 NGoezNEjROrvq1MeXjWcHKErBS ulpyV5GNNteiPtm3VwCJVtLRVo Z9mtPsNsRBYWSbxvCMANUiVRDO 4YPNNPZ0BNMFTqDMlrAMLDZQ5A QVJZIEZJTkUgTkVFRExFIEFTUE hTPEOEA74uBVHoPOLfZpMtpKFe QA0PVRXgjiSkFAzosOelfL5kbE CrY7mnsAXaGqQrFeKaMyjhgVtt TmVzdERvYzEgDQpcbHRycGFyXH LvHeNaYJQvD5tiWnTjYM5EWQLu AmEbWiUwFFp7PLLxGXBeiEfxDL Frd1DsO6P8GRHwYNvqy0mcJOVo ORbwm9FcGBwAZTCPVE4QCU1gpN J5XPiBDZLMI7xFxORzJlIvnWK3 LK35ELMtMWJygLEuIBnzV859rl Vka4srkKTvVPupLhqzwJHtijS9 NCjKXCWIDUuDVvStOR5eUIiEF4 KNGkN8OrAgTAZ3FGpltKikHnnq glRmhGQoDtCWaO8tfRjnkI7pjT GcY2rgmGAkLfTtDsNaYJDbCTXj c6WjB6B9FZIkWKqaz0buEHXqOI bhc9PdMWeUSZMDOD5ZMQ1pbJV3 SWwFEKHMK7cXtWTdAyR9gQM8Vc 08JVXxGYXjoRDgOEbkL035eKM0 oHjdHunwyDK1BBcmEtutoZ3ctU ZRJLSKCrsVRlrgcgFuEK2GJDPY IA9MvTKwRwP9sIZ9Gp23XEQtQS TrrCJtCXzaF190QKKkLWlpJNm3 cmNoXGxhbmcwXGZzMjAgIGZsdW awIGaoli06BDZ8v6dxmYSjKNkh MyrzlJMmbqH3YHgVWRONVPyNQe XfZD1iYEaKQ4EKOToWIepvQECs HUsohBQ0c4ugbOOsy5i0BWqeJF I3fRlkeQj9JVMwRWbgh8cbGNHp SVinf4PeGQhHBPUWOT5QNS2heY P8XHsOJJFGIJhlKIBrSEbigXC8 y9kvpWSaa8r9BYfpFYI2gPnmkJ DonswpnYAnfVanWX1rKMcaieLg JDZpHTW5lWUgAHGkuR4aD4e2a6 z0xJCdl211YXrzEHNgLNcjQSRk RSdtwNKhVPnzlYMmGNBup8DcUP sktRmxTOMkIzPtEInhXHCkO64r n9JFr6Aqo0spzYwsi9JxlGBcJT 4tdKShRE8Vt9veVACxcTHcQJJ3 NSyrc0cyEHniGMZ7UBCpWqCxUN WxWG6JJyCkZYI0Lpk6HxZvSiL8 BNx4ABMDGlUjCfYuZkK3XvgbHO DqXWl7HOe2LIuLVpTiEvknOXH4 KMj9DMW8MWK0CDqpbOTlYNlzf1 CtAtAcOLPyPKsbftH9OGPstxCl x9PzVNFcNJNcS3qjZhMvTUONKf yiNOZBAnRRSW0NZKJKE4MBDACn GLMPXVgHW05MMqakOziALWKDJX BYCSOtPRTRCRLRGUbJTe4sYrSk ZnMyMlxwYXIgDQpccGFyZCANCl dxkQPjrqmfaQGpzZdjDV9aESbc pnBkHIMeyVNTLCH2IQ6jPRXGHg xdwBVbDGDhv2BzKMqojClmJRSn MzAgDQpcZnMyMCBSZWNlaXZlZC AzNSBtbCBccHJvdGVjdHtcZmll hGL0WWixUxwbyK3jnIGPWUCYLm rZYeinegXlSC4NNXVREbKJSW62 WzDcLZS0JNltpFdgBuzxreZwiS WvWvSVrF2qoR5mw9zyjWVmOVtb XclntQYtolD4VMwFUTKBHEnIUp UeWU4bMGnUM3SDDxT5LjSgWVL4 MXwxfXtcZmxkcnNsdCBcJzFDfX 2bdHsfhM6cgSEfW2hxfOGvHcOe WcVmQWEhMHWrv9SaQ9R0JYOgIZ nio8kvMXSfSPgnr9NcRRzMPIEE AP3SJN2leNC7YWmTMTHNO6pExN HvNyD8dVG0Yr71HZKuWNRenTZf FUfkN836T5ljYOL9BUJhFJosk6 rlYGNkAPqno8IpCZkWSDREET6F CB4szIN1YApWLPHLQJunTAJfDM vmdPB0w1jfuQFnu2t4STfmCCW5 pWdtzZKpybqbaUEdrPunVT9pDO xmczIwICBmbHVpZCBccHJvdGVj fHwsGnhlnWT9ZHnmSiuizW7zxR SFCMZWHeoNQsoggyAxYI6RIMYH EhRGQZ95YqUjEAQ2F8csfCeaQv exmnSkcVOsClYQwL60aRMgq8sy qWZqDMfwHpfctXEavsY9KVaUDL RXDDhUWjMcMI5rITmDA2XBVhF1 QtXnOKT9Y5litQqoZtfxqfTkkX PbZsXJuC5vkJhkuA5lpYAcH9rg bGFuZzBcZnMyMCAgcGFydGljbG HtMShqONG1hC8vkCSqX93fkUVg utExOiDzqNJjNU1PTXPxftMtvD UpwLVcSOFjVzLaUANrC4kjKHVj GQ7IEUWglZLHVTH6HE0zPEvdCD RjF8GbL2KscxN7VTPngsXGMosy QwlouKlan4WkbCBpCMAsQPzaaB QgNTEwMDIgXFxkYiBPVlIgIiAy TWV0ZVDjBKMkGYy4SXtcG3KUJE NrLSSkGCu1Cid4StT8JQe9QGJC Ce0ePZE6YEA3WOWvLPF9EACtAT BcXHQgMiBcXHNzIDMgXFxmbCBc MH1ssTvfHWDiNITeJSQ8GBWrgH EQs6EfBQFuCZjkMaXqUI8vESnL MUtkLl9LQQC0XIOQJN3YWtWOEP UZMA6GYW2DHXAJOODYJ3PRKdIZ TD9HXswkMuxxgwVpDPXbteOSMq wwYVLaCC0GADDpAJdiRRj5jjNb TCanlofnEXBxVjGmGNWxN66mp5 DXi8MzHU1RMAy9cgDcejlrDwXp QMYkvGIBn6HpNTPELhkevxGuXE CwM9IpppTrYPX7YL5fKLbmrx21 EJT4n9tpfVZcPGayHzwmfYQjkz B4JIcXPYQRMXmNNsXxLN2kMMwQ N6FSBCkIUmvfCIFzT2bilVP3u1 sfjPAtb7q0IIdpMIC1fHTeGYef JticnXT1YIfzVpxbiE0dhHAKKZ RVKbyTIbvxthRaYX6LOBPCGC6E xOVcPiDkiPM9AG36REPnLPRooN YzESqlI969ANRbNLhnWOz1wtHf KDrsndrpCXVzItOkZCtukw20KS Z0v0smaNEwSKqgYnhnfQSoifH6 HBdFSWXIWInFQnQgXH3fTMbQU6 JPCLwUKpoxFDYuRUydzAY8e7bx rUOud9z2DCyqJVC7kVRyJVYdo2 mubMHhKPhgZmvbhAQsjfQ8GCbQ YJSQBFvVCxTnRH6lEBgMG2WOHm D0NgOaOEW1ScqrfEheDnynvsPv mBIgFkYFzU1cbAfmdS5nyOWbP0 hznSExXsSgBqUqZPHmTck1wJKx ABBbk4EkU4K7KKQtRDehl6huHL MpLMkeq6EkCMbOSPMUBN8BWO7x vXM1HWfGMQTQE9jYqPZeWcG5dD Q0C513SFYvQLVmlDAbVLmrS254 y4p5vNtkBrmynMB1TQkpUrnopI 0tiTZTCBNIYemGZuxyvyAxBI8Z HFHEEZ3YyRUaSzH2kBC8N885IE NyWFUjjCEmYIysM610VXFsEUyw KUt6bsFhRUiltaiuQDFmSwHaBY SlbyXyY3nzarRwxbZUzHUiuSo1 GPQsqbYqiB6fcb5jAEYntqARDf sfFBUlTBv9keErihdvHOOpIOIi nADEn4YuYZUOTkphbMtnMuRzmY MxAhQ0MNXddEQrNSL1IB1waGoe YWSoK8WuF6RrwiQ9YQWpmcUKWp ncWKLmZY3FFNCsSsYwIPo0 [facility] Work Phone: Pathology report intraoperative observation Doc (Spec) e6iprSJxOHGjgGXZPXWwMMRsJO 6fmKkahEh6rGrqZOPdrgA1cKVi XZqnp3ulHED7f1hjyfTDQiooTW TcNcokCZAoszccSxG3TNuaRBOp cdfzSUa8FXfmANTzfIM6JXIggS ZlK0FmLSFoYR9mpix5UAZ8DFlm ENYkBqD6GCKpMYt4TEJrhnV0Kb ggVDx8HDQuPJXbuZLkb9G8LQag s5jdo0TlGVFbYAk9mG7Zl8egJf icA3iajtUwaGZbCdZ6nMQmQYWb F78cPHQRJ077RDf6EBIupI9bpB NnO5koRCJtBBiwNGOxIRuoxVIe MQx3QRemr9UoeKAzUQz0CYndBM SkQ1QfT7IsTCfqQmUyKZriVCSt GFLiZGciPOBwU0HZFEQnIwr9IA idWdErKVy0IVy6KLPKYIE7DBiv SHQ3NRc9JJv5UYimyhaoJUq6QF NhVWnhtUMpUM7ldSmuBmtnwKwe j1VsoZFcNJSzWAfmxEIxFRZoHX PcSOxqYsXFMaCxXaPhTGU7JTBh FCCjKVj3JImpB2FSJDMbEVXcMO a7QGi2BjN3DJg4ORQGUv6nWLD0 GZH4QYL3ECK4MDCdSHYeZNToHy QlHNMxXIOaRJlyrMLcVT0biRgx ATBcUM6HGFMuRUzcUIuyixwvXV XwRHMhGyOoPT1jRGfUQSlzEr0Z LWO0FQSvCAAYPD4TPNNAGJSTJa UrUvNFUAvQQBZPFNhFWGVVX19u MYb5lzPeDSSwKEJtClBolKDvPK 3OIIElwwRzWTlhrEiqaG0ipZXv W9dkzRXlGnNzUkSsLabguUlaUa KshWXaGuHwCTwwcURfrQVzVO1Z PZFpKWNnDlTuXaVpdOPhC13ge9 l3IPUVkmOzoEA2mN6nPHViBLDd MoLecSm5LockIUZkPCiHOHEoMN F8VShpiu30STW9k3tjpXElQUzn JwgtrSQqnyZ3HDvPPLQOATrWCu HvCQ0hYVcAU9INQYpKGesiJHH5 AYewfLU0i5yfgIFni9j9EEwxYS K4aGpfwv63VGA1BBjgqpQ8YQZu aWNTTFAwIFxsdHJjaFxmczIwe1 yybWHhVPycVvtarRGewrP2GJeO GHOJZTuVYfTuYT6aAHoSXXRXPK dJTnwyfXtcZmxkcnNsdCBcJzFD xO6Xl7TutNm7DCIyg4RskSHsuT apBC78MVDxuNxmVKApNCShuoQr t05sg38ilQlyW5WsfJXuFPPptG 4ldNKys7apaBYnUAbcHwxdcDVp bxN4EMiFNSOEDNdEFeImIL9xIM eWEACNZwN6Yv66GOMgIPKrxBJp QSjnM477UCJiMVxmHUr5xvHtIK Fvx0EpC1HjuEIsMvVaJuZrEyKb YRqmgc59EMX7LErdtnX5STKbeK ENFCDbYVhobRIpyVyzmr22SCI7 BYDeQlD3VPSfBSnab2buPSRsVC jqn2MzNFxTXCXPFM8FVW9gjJW1 QWmHZWWOAXirPEY1JYyjjOQ0d0 lhzHAkb9f2DTmsBGB2pRxviMEr zckebEFpmOftQB0tMWecBOnrcn IwXHBhciANClxwYXIgDQpQYXRo a3zrB8qcqZxwVARzc9TgV2B9ZV InHXyrt0kiDOQfZPgyh5GkDBnO VNUWZU2ISO1jeZK9PQkIVIXXA2 xTnBV5Ufy7uCG6A301JLBfOOSy hOQoVQdcM224WTKxSPgyG86vng b3NWDNKMG6RZfvIvszoJA0ZHrg FclzsO7ucRSLWIDKCplCAdwbxn LgEO1SLGIPYG2SeTO4Hsl1iWS2 M417OWHrYZDecGHrWIirC316AL PkCKbqPEf6gzQiJTbmwjabKFUn XGZzMjAgXHRhYiBDYWxsZWQgRG Q0BP4VfM4nJkF8AfZ6GfJhHaSs YXQgMjoxMCBwbVxwYXIgDQpccG LuUL1HPYKjvLEabCoyebNtSJWo n7MmGMXnQIB2LOssXZPlBPqkO5 ZaWTOcwXDkxoRgdEgvXZ5wzJd6 YWxzIENsZXZlbGFuZCBNZWRpY2 FsIENlbnRlclxwYXIgDQpEZXBh rsGuMY75AH2yIZNssFxgrR0aeH xwYXIgDQoxMTEwMCBFdWNsaWQg QXZlbnVlXHBhciANCkNsZXZlbG ZrADkmH3nuqxF7ZRYjUr81OGQi ROBhqgOEJaHai66gUhCvYrD0BQ Y3DJLsHTohQyEAEAl3DLcsOUTi WRt6SV9rQVOaTWRiLJTqTNMbws GSSwxlXMJeCRWwaRSWx1NgIHXO DtrubDygQuWeuHZqMoI1PCPqvI BwPHU7AP6kpZnaAQInA8UrD7Im lyC2YKHfjcALUdnlFFIxGK5SPF QkHHbtOMieeqcyWX9LkD== [facility] Work Phone: Pathology report relevant history Narrative r7gwrJWeKCMkbJDuLXVwIkccex PqIMKiuIUbA1LczfjsITfqNV8m JF9asKvuqKCumHFfJUByGlCfr1 rpt306wVWdl6caQJQGurngdVx7 gEoxU78ko2D7GmsuS36ynXLiFH V6PSCfPHFspWNxAXVvVQK0PXIv eGHpT9jdLQVqSW2uugryVMuuEC nkOUFopGL5SITfuTFvK2GyJTGu YJcpZLRswbz3ObSbDy8ubBYsyV cyMFxwYXJkXHBsYWluXGZzMjAg PLgnWCQuzREit5wsKHB8 [facility] Work Phone: [facility] Work Phone: Renal function 2000 panelon 03-29-2025 Albumin BCP dye [Mass/Vol] 3.0 g/dL Low 3.4 - 5.0 g/dL [facility] Anion gap [Moles/Vol] 10 mmol/L 10 - 2 0 mmol/L [facility] Calcium [Mass/Vol] 9.0 mg/dL 8.6 - 10. 6 mg/dL [facility] Chloride [Moles/Vol] 97 mmol/L Low 98 - 10 7 mmol/L [facility] CO2 [Moles/Vol] 33 mmol/L High 21 - 32 mmol/L [facility] Creatinine [Mass/Vol] 0.63 mg/dL 0.50 - 1.05 mg/dL [facility] eGFR - PINF [facility] Glucose [Mass/Vol] 212 mg/dL High 74 - 99 mg/dL [facility] Interpretation and review of laboratory results Abnormal [facility] Phosphate [Mass/Vol] 2.2 mg/dL Low 2.5 - 4 .9 mg/dL [facility] Potassium [Moles/Vol] 3.3 mmol/L Low 3.5 - 5.3 mmol/L [facility] Sodium [Moles/Vol] 137 mmol/L 136 - 145 mmol/L [facility] Urea nitrogen [Mass/Vol] 17 mg/dL 6 - 23 mg/dL [facility] Albumin BCP dye [Mass/Vol] 3.0 g/dL Low 3.4-5.0 [facility] Comment on above: Performed By: #### 2 4362-6 ####DERRICK Hall ([id number])[facility] ([facility])[address] [place] [address] Anion gap [Moles/Vol] 10 mmol/L Normal 10-20 [facility] Comment on above: Performed By: #### 2 4362-6 ####DERRICK Hall ([id number])[facility] ([facility])[address] [place] [address] Calcium [Mass/Vol] 9.0 mg/dL Normal 8.6-10.6 [facility] Comment on above: Performed By: #### 2 4362-6 ####DERRICK Hall ([id number])[facility] ([facility])[address] [place] [address] Chloride [Moles/Vol] 97 mmol/L Low 98-107 [facility] Comment on above: Performed By: #### 2 4362-6 ####DERRICK Hall ([id number])[facility] ([facility])[address] [place] [address] CO2 [Moles/Vol] 33 mmol/L High 21-32 [facility] Comment on above: Performed By: #### 2 4362-6 ####DERRICK Hall ([id number])[facility] ([facility])[address] [place] [address] Creatinine [Mass/Vol] 0.63 mg/dL Normal 0.50-1.05 [facility] Comment on above: Performed By: #### 2 4362-6 ####DERRICK Hall ([id number])[facility] ([facility])[address] [place] [address] GFR/1.73 sq M.predicted MDRD (S/P/Bld) [Vol rate/Area] mL/min/{1.73_m2} Normal >60 [facility] Comment on above: Result Comment: Calc ulations of estimated GFR are performed using the 2020 CKD-EPI Study Refit equation without the race variable for the IDMS-Traceable creatinine methods.https://jasn.asnjournals.org/content/early// N.9565557279 Performed By: #### 2 4362-6 ####DERRICK Hall ([id number])[facility] ([facility])[address] [place] [address] Glucose [Mass/Vol] 212 mg/dL High 74-99 [facility] Comment on above: Performed By: #### 2 4362-6 ####DERRICK Hall ([id number])[facility] ([facility])[address] [place] [address] Phosphate [Mass/Vol] 2.2 mg/dL Low 2.5-4.9 [facility] Comment on above: Performed By: #### 2 4362-6 ####DERRICK Hall ([id number])[facility] ([facility])[address] [place] [address] Potassium [Moles/Vol] 3.3 mmol/L Low 3.5-5.3 [facility] Comment on above: Performed By: #### 2 4362-6 ####DERRICK Hall ([id number])[facility] ([facility])[address] [place] [address] Sodium [Moles/Vol] 137 mmol/L Normal 136-145 [facility] Comment on above: Performed By: #### 2 4362-6 ####DERRICK Hall ([id number])[facility] ([facility])[address] [place] [address] Urea nitrogen [Mass/Vol] 17 mg/dL Normal 6-23 [facility] Comment on above: Performed By: #### 2 4362-6 ####DERRICK Hall ([id number])[facility] ([facility])[address] [place] [address] Albumin BCP dye [Mass/Vol] 3.0 g/dL Low 3.4 - 5.0 g/dL [facility] Anion gap [Moles/Vol] 16 mmol/L 10 - 2 0 mmol/L [facility] Calcium [Mass/Vol] 9.1 mg/dL 8.6 - 10. 6 mg/dL [facility] Chloride [Moles/Vol] 97 mmol/L Low 98 - 10 7 mmol/L [facility] CO2 [Moles/Vol] 29 mmol/L 21 - 32 mmol/L [facility] Creatinine [Mass/Vol] 0.50 mg/dL 0.50 - 1.05 mg/dL [facility] eGFR - PINF [facility] Glucose [Mass/Vol] 83 mg/dL 74 - 99 mg/dL [facility] Interpretation and review of laboratory results Abnormal [facility] Phosphate [Mass/Vol] 2.8 mg/dL 2.5 - 4 .9 mg/dL [facility] Potassium [Moles/Vol] 3.6 mmol/L 3.5 - 5.3 mmol/L [facility] Sodium [Moles/Vol] 138 mmol/L 136 - 145 mmol/L [facility] Urea nitrogen [Mass/Vol] 17 mg/dL 6 - 23 mg/dL [facility] Albumin BCP dye [Mass/Vol] 3.0 g/dL Low 3.4-5.0 [facility] Comment on above: Performed By: #### 2 4362-6 ####DERRICK Hall ([id number])[facility] ([facility])[address] [place] [address] Anion gap [Moles/Vol] 16 mmol/L Normal 10-20 [facility] Comment on above: Performed By: #### 2 4362-6 ####DERRICK Hall ([id number])[facility] ([facility])[address] [place] [address] Calcium [Mass/Vol] 9.1 mg/dL Normal 8.6-10.6 [facility] Comment on above: Performed By: #### 2 4362-6 ####DERRICK Hall ([id number])[facility] ([facility])[address] [place] [address] Chloride [Moles/Vol] 97 mmol/L Low 98-107 [facility] Comment on above: Performed By: #### 2 4362-6 ####DERRICK Hall ([id number])[facility] ([facility])[address] [place] [address] CO2 [Moles/Vol] 29 mmol/L Normal 21-32 [facility] Comment on above: Performed By: #### 2 4362-6 ####DERRICK Hall ([id number])[facility] ([facility])[address] [place] [address] Creatinine [Mass/Vol] 0.50 mg/dL Normal 0.50-1.05 [facility] Comment on above: Performed By: #### 2 4362-6 ####DERRICK Hall ([id number])[facility] ([facility])[address] [place] [address] GFR/1.73 sq M.predicted MDRD (S/P/Bld) [Vol rate/Area] mL/min/{1.73_m2} Normal >60 [facility] Comment on above: Result Comment: Calc ulations of estimated GFR are performed using the 2020 CKD-EPI Study Refit equation without the race variable for the IDMS-Traceable creatinine methods.https://jasn.asnjournals.org/content/early/ N.6473415116 Performed By: #### 2 4362-6 ####DERRICK Hall ([id number])[facility] ([facility])[address] [place] [address] Glucose [Mass/Vol] 83 mg/dL Normal 74-99 [facility] Comment on above: Performed By: #### 2 4362-6 ####DERRICK Hall ([id number])[facility] ([facility])[address] [place] [address] Phosphate [Mass/Vol] 2.8 mg/dL Normal 2.5-4.9 [facility] Comment on above: Performed By: #### 2 4362-6 ####DERRICK Hall ([id number])[facility] ([facility])[address] [place] [address] Potassium [Moles/Vol] 3.6 mmol/L Normal 3.5-5.3 [facility] Comment on above: Performed By: #### 2 4362-6 ####DERRICK Hall ([id number])[facility] ([facility])[address] [place] [address] Sodium [Moles/Vol] 138 mmol/L Normal 136-145 [facility] Comment on above: Performed By: #### 2 4362-6 ####DERRICK Hall ([id number])[facility] ([facility])[address] [place] [address] Urea nitrogen [Mass/Vol] 17 mg/dL Normal 6-23 [facility] Comment on above: Performed By: #### 2 4362-6 ####DERRICK Hall ([id number])[facility] ([facility])[address] [place] [address] Surgical pathology studyOrde red By: Geovanna Mcnair on 03-29-2025 Disclaimer l5izdBBwJTPvyUBrShCm MDAwXG Fiw1zsXOBcmUSrSaCmNfUyVqPz MrqsrKNyDFVjSaAsj5eog522gI Xet3kxNYCeMoU9vYYmWTGbeEjx jri4sUcjNoBwNRYma3jxspDaYd DaZLUqZTUcADKypBzxsjn6ySmh BdToMRYqeVopYCPgSLp6jH52PN PqiC6tvUAeTAfihlCxMuQ3WZej DIOtWuB5ABUzqAQsYJEbX9mxLE UgYBndIEZrREfprTRzVZZ9oSyh e6I9hRNebMNteQaiEfXuEqTwJc INo3JnKOw1yBbpP1GmIKYmHiX8 sTQsQCXmKVszTTFtPTCfylL8wN athyKqd19ggSElLCIuNGSpGqLz H57gdz1zoO27uX10SEpujfZ7dV Gpe6Gqc21nb573sA7tuLLiTAG6 CAYjKUPkyITnQBPrOFD5MEEwzR IiN4gvQIUxCV9vlfsrTVnhDXre XOJanHD5XSTxiEMiV2QuPCJoAK ilYDMiwoc0CqSvKs9viMUvmGhe QJtwp0rco5mijQXxBxt7TALdCz KmMzdzCTmhq6Lxo9ikSVOqlb6s FGM5uDItdVqii1Y2nQDpYWAktV VaxoWrMAXqAsA6VYoaBP8pmt12 ITTnVTG3iv7wqGOgvYlwijNcfL XzLTxeH5BsTSSze333NJQkM9Sf XCYbj6L4raVoSkBsJLYywOT4tj P8IFAnCHl1qZUqprK9afOgtGDo P7bliZ7xWQXuIE3dnkuuo0yiTJ stVXpsQKQxhNZ3zxI6KTQowGXf Q7YqaX7wMNYoQDxaCQBarmw5Dv BoTe1qnNCtfGuzVYzwOojsOAtk XHBnbmNvbnRccGduZGVjXHBsYW luXHBsYWluXGYwXGZzMjRccGFy VTywg6PlvmRokEayUWEnTUX3Jm I6DUJ5EMI4NOf1mPJuIqDfcZwb STymYRT3FdBcVSt8gUArQkCszC o7EWJkKYR2IJw1CWc1kXY1USDc qNq9ClUxVLM6IeklJEd4nAy7KM IzkWp5JwYjPMI9VSTkGHAawRae hBlsfN1aPdEhZzAaYemrVI5wKT OoO9obvYErFVCnNMHrI0kjGiEg zV6kuEsxMSuuMgEjDbTiKiEEjf Cer0WbvP1bPYJdHgK2tOFjbaNa J8WhuAOoiVLtFPN3dmNiADXnv3 FjNKTqd6P6qyTbnmB0pFajQYHl QXGqnSRuGR5HTTCoMHTmMGOadw GmnM8fWQTvd90qz17giaLvCIIp cvWpPRXhVRKpxO8bDlTiYL3akR n9EAHjgDOviJPlJlQyBQNqHA92 shHbIWXXX7OpFmWeTICBR1VkqQ F5URJxt5CaVbAazkQziMHuoxNg VA2hCGCzrLZulzCzYIF3PVZdBM EXCwJnMWLnd6VvWO6eLYVqjDja CPTpeQ7zx5HjVOLyu30eMDAVuB NtDTQdk9PbnOCcc1EsUIPcHUPc oJ4rOLZdVA3vYWPlWKudVMEqxy Mlke0jdsCuUGEuLCQmK3Csuwur hExqvsPjSICtzv7zezWhPKB7CP IqFZBAPNYwtiPkLH69BV9aRUPr iImjgZ7rhJGfwHORhny3SKEmoZ S6UGere3ZbvUPhjfHSlNH0UJtx cgJqNLFkxQIprLKHWN07ZVHcRD ShURGCJYLqEQ2zfxCvb8SjpwDb lVkyKTD0vDjnGLByv2SvaI1pI1 2irCdvp8JiaHLzspHkERYqEJSg ZiXNQPJehcxrps7oEWbxnlW0SX X0IFtyNWVlGNQmNu9rLIFhhL4i W5UcCKP4oiUxn9XdAxWDdPCaaZ 75nLDrsi49JROyRWRnT6KhIWYo BZRkATfintYenEpiNIYtv21zwV QyepLhf4ChsqIoUVHlU7jdICJy cXZltJDtc4FsjW6tdJVwqcVeZG G0bIUxWHNvpL2lOHRouDfeHLEi jH3sC7CaWWwqId6iKZIjibqpKX 4pjz27QB2btkQbOR1hjqOaBX37 ubVkK9dOVUwyRFVqvIRfzYvrcZ HkZFAiZHTjxiXqej3ncUrifZGl o40wdOA9fCZ8DOYrdE6tT1LlAC xvQe2aCWXsdtcykJGnuYwgYg1y JAWjDWJrq5VjiCQgl8HjFFBuPN Jls3CvUFUky6l0sCArrIJuq1It iRZ3SOHre5PgzXe0MKLkeqFjkk PyBJNeklExJ43dmDEhxOJjg1eu W1qty6ScwP3eXJBwnFSov1ZtaO H8LEo7PjwnSWF3 [facility] Work Phone: Laboratory comment Darío (Report) t2jaqOPoYBOpj6iaXQInaMWuSx EwMzNcZnRuYmpcdWMxIHtccnRm OOjrk2ImE9FnEvEgINtcwaFmJW SzBagqvnyeAQOzEQA5nnCcOXHp KNylKOBrSRomAm4qlDBurGcfYa VjAACpe1gateNYQZruJZLHWPq3 d3dmXSAgOpP0mQGwPRwrO4tdjj ExpNFjN6Wlf2AeGPp9mD88MJOx pI6cqPEkCGmikuCxIbA5ZQveGZ NiPjI1QEAieZCsWWRpV0icBGPz DHcgBHHuZJghcTYyUEM9uThvd8 R1kWZyuAEllYibOdIkWpJfZuPZ a0FhDSe0gWweH5XrNFOgCbB2dV KsDTGoDYcqLEEfRDXavsD6vV21 APackpJ9uBLuc4Elk09fi316iW 4bxPTeOOA7YPCiLUBlaNCvIBOr CRG1CHZorYNvJ3jmOjVneRIeL9 IaDbAlwHOoI5XoZtPfxGGrE2Uu EtFzgSGmOHXbnVL1HIiny838MV I6CtBnAK3oB3Bag4J0wU1vzVEy PDRqiXQwVrYgXZEcco4iuJUbBQ kyq3LcYTW2fxP4yAKtbTCxJCPr OZ17Wmeoe7GrThkzYKM5SIZqpq Bqu3Hys8fyZyEfqxSeO8eeU2Xt DGRuAXWnFSLaYkLrwaCer4Ece6 KuqUAkaFh3m7eqSTGcKLJzcYon m9tsJKJ5TEZkM5T6sKEvf3pmET pwEIWqiUF8tmA7CKrpEXQdeiE6 zrD1UMntHVYnwJP5wjZ5AUawIE RmZpE9mfM0MTqeJJYzZHJ9WsAp URUji5ZsmogkKiZfq6WsfOXtTH eoW40ii322BVPnnwFnE8nhhNIr xrapkMCsyjecNThcidE9QPPwPK BsYWluXGYxXGZzMjBcbGFuZzEw MzNcaGljaFxmMVxkYmNoXGYxXG ncR6kdTfVxYzEaLVYYgDV4mDQp i3fbioE9oSBaRY3iOVXkfJJdzv Wcg0Q5VJT0mPDqiE6pvXKkHNUx vPWhfdTitu45mKWsrGR9TUClFO BxhQXfdZ4gROLzMBWNaN6umTTW fkSjtfDwHUXriNkdne4EyPHqdv 7fxGToK8MosHqsfLUbHFXtJHSj qPlzyGByUTCiJPOpmcugx6RnBX HjzTAkO3UrXR7jXTZkxq46 [facility] Work Phone: Pathology report Cancer Narrative [facility] Work Phone: Pathology report comments [Interpretation] Narrative x8iieILpIANjwJQjLTJkVbw2wS Pxp5I6dqskSL6rjCgrqAk3nBnz AYIjtiT4wNTsGCahg1opQWC2o5 gcpjfmDFGjYJaxJz7crNHjjBpw NeEpGNHnTMq3gC02MEAciS7sqK JsPCf5RQYrxFArpmHyObZwEUMg uRLesBY1IGErOV8bhvauKYjwBB cbJRXiafY6VZZqtDLpV8BjYSYz VK4eufcwMVK4QAiaCGOcFBT8Uo AyBRArv2Ydslf5QuQufDKfFVax A7obfIWmwrvkTVOhHvXeDSJhKB MoYlVUGoAsLrgkHD7rfL5qsWzb aM3dqZHszQW1udbsp3j0yRIYic RlcnByZXRhdGlvbiwgcGVtYnJv tDc2uP0kIgowSOKnSTiNILFVJS RBKVxwYXJccGFyXHFsXGIwIEJs w8VtYVFdNLK4AKJALAkhWQOefD LfLZgacUKjeRIprVX0tE8tDmYE eRlhHTS2gOYvx1Qtl53guGRtZP NiodFZeB4apcBSic8sm7R0lB4k KKRpb5MyXZzDATNmJzB3AVCtxF GkYWIcrrzcMPRuFG24JI0hNDKi dXNlOlxwYXIgUEQtTDEgMjJDMy UucDFVSWHll1t6iTAXedQdivRh NICoqHeuklWgraBwHUB3CQdmbV Z7oYRnYRlwxGNco2adn6UxB1hp bWljYWwgYXNzYXkgdXNpbmcgTW 9so2Rpc72nnIBNl1AnYJZSghOf IWJEANmgSGBZiK5oLRDoKxQnXA hrbYBuFRFkWRSrqrD7v6EsmZ3o dGhlIGRldGVjdGlvbiBvZiBQRC 8UJEHvml51WNgcYKvpLQUjhz4g bGluLWZpeGVkLCBwYXJhZmZpbi 1pdPNiLKBeHDEtWwRGMJikxt3k LXNtYWxsIGNlbGwgbHVuZyBjYW 2bKRIoXP1LG1qFALB0bMTfqQEc cWBsdasrvPceKO7ckSc0fHL6PU RldGVjdGlvbiBvbiBhIFZlbnRh ywDfBqByM8pIMDFxDZXcjMQmMq PUmCEzv9RiJ5isGZ7hm0DxtVu7 pZHaGICtllK7SWH8kA4cETGrx4 DpLWNxq630BAccLPU4HVpzJGN4 QMMbDMU1rILedSQqlXLxv5JiT4 RfsFKroO3cZjIkV18oy0asKLSu EJXyOTJpdSB2JSQsl7FlYSZjgL IccZwzoe5mXBlsotNiq7DhjBPo dzPvbuZdP9L1LWAnNGJcDN2zEL hkJKxuDWzpVV62pFK7wJ0eAZ6Q V1vOKIUcvNixkcOcOMExjyG8yi KvpT3yysOit2j4uUNdBI4icu0s jCm4fHJeUXdXEOyVEeSUXZtmEA KbpchyHDTmJFC3wX5mr5pnO6h8 ZUUggfCVFX7UHJLvxg33VPkhMD T6nUCkx7Otl78raFWgBLG0UDHi sP2hMKOopZP7u6rtErFZlJ6nel JOfz4ny1L4uZ8kQMGab0AkNDxD LHDfSYG8rHoovUUqvaG7fSNrtY MjN0KbsSVaPTExYnA6tSEbdHMu zSZoi3KnQ1HonNKhm8zmk7plNw JmYTC8fDWeFH1zPZXwzEVnOHKt ZJ5ruDQkHV6qWMB5ZCphcI9zIN Q7ZCDynXRcreZeexLhcRtjWAlk LQPuOJAllYbcsRHymFNtBEV6aC 6gXF6aRASuqlZ9PGdawaQaaTuc baDyrBNmrWJpUGZhRP32GS5aSF dlZnZlIHBhdGllbnRzKSwgdGhl IHNwZWNpbWVuIGlzIGNvbnNpZG JbQAGjVZViUWOtdY1ilJSekyVv aWYgdGhlIFRQUyBpcyBlcXVhbC B3tlItwiOeiyVhtEGsNSBsYO2j DJZorNXcL9BaxB1xCR8vtThwFZ GqtKGnyjojq4Qua3Gdr18bSGte bmUgdGhlcmFweSwgdGhlIHNwZW NpbWVuIGlzIGNvbnNpZGVyZWQg kZ0twEAlaqDdmBTyeVrvMJDWGz TgfzBokFAtwZM0xsDqdeTovgKv pUFxJMUcOK2zCBAtAAReOY49Zp xwYXJccGFyXGJcdWwgUmVmZXJl bmNlIFJhbmdlOlxwYXJcYjBcdW rmAKgeU3rfGYhkjvTmm4leiyB+ PTUwJSBUUFNccGFyIExvdyBFeH ZlRGVucH5cRRDvDEgsFZRLM4lc UWOhZf7fNWblayEor3bqtwF2NE UgVFBTXHBhclxwYXIgVGhpcyBh d4LraEUdvuR4SCwoFKV6VKTsTZ 8cCIEFKG8fpHAzl7SzQAWom5Pg iAOoVzRbBE5hHAMit2SbF5csSV 8fOT4qxKllFIWpniFdbRipc5Yx POIiq6UmW1yiLZ2mcWpuETGbEH Kpy9ThfICkf7pspHouZYHoHGeu vVPrrJFwcKXxPRecbUbgN1R0kP gkbsGtxrXvl0y3vLykJJFaOHUi zXVlq4XyxSC9VPXhvApnaQTqfG Bry530TAi7IpPJsVKdzGUbUY9l TPVxcVBxSEZiQTmen25oGXElGZ msjTQcRKHfdDjjm4PyxfDyZZEw zk58TIDrSM5urqDmzIPudZQwGP PrVYBpcoWhp9CrpcXfs13yNR0k AXAiTVdhHVKfT71vRI6fEP2agg Dlm5HgiNbsFDQoVXrmpzHmQKRf GVIcsB5ehFOtEe9ftYMsv6EimC Lxq83dtCgotvGcfCIoxJ3oftSO NHyjjMW8TVBlf940AVbyTSAuK7 3veJ9rPJ90ohUsp36snGHsotXd SSDfWNXtWRjuDa1bGOEtucewHX N2NHusuXGbDJYjd2FbIDxWGYCo KzNgLIMAU5VxdKH7ESQvx0TpVw QgeiAgzOUpeaPxXJ4mTMRrzBGd tzUoDNA6OIQbQWSCYqJwGIIyu8 KoTF3xHUObjGetOUXyfE3fa9Jz ENMaj13rNNMVvGJfUYHsf6YyqU GvgDJupJRjp5BySJUdFKYctN2l YBVcFV3qFDLxXCklPEQesjOnxc 7ceeHcBGJlDIKyT3SdrayxdVdv tpVyHWBxlj2glgGmUMH2CSRsWN QUHZLftkFdEG86YB9aIIHnwLnc cO7leZZSvO91af8arDT1v0EmEI 1wy2HswIXSJYByZOTmXP2tedXj m7x9fFDKs5HdpNIwoCRfI9kemc QqFB0sWN8mYZhaOGqbJ8DowXYd GcNEbWZnBsXXFWWnGTKqfg36YS JmdKGemiMsaOrcosZ3YWB5RKMa JBbuHQLtih06S9waqAOyiOKxb2 R9ISLHMFDoTPMfIMtvCXIcaPTp tAMwdKKktuZ1x9AjJZRbujLrtV qhsIFnqQRupXUwe7Igtg0hCZPs y0pwpBwyTQ9bcIJkNUQrTKlqng DjCBTiqbXchnUry3ZrD8I9iT0r HBfyq1StRu0aGOWnx7XmssZhFv IXhVixLPwqVj1vDPAtwovzkVGc Z9VkeScsgPKiWXYgDQZgEVNmNN OXvFhetGXthVJAGDPxdbS8x8F4 QQwnbVNwfaRgQE93ITKfUE9poK WwiGBgJLJWKFBgGYAiAJT7IIor EauuMLW1tyPgGFXzg1HiQOqjJ8 ndM21bhZrdiSh7eDBpjWwgcRTd nXDfMJRpomX3d3W2OPPtu6Jmku kmCDCPiUTeUGMyWUkuZ0Qvk2Pp DQvxbfYowQGaVq3swXQuOGgybJ ipCNUuoo5lzujzrCFzwB8yqXEj jqIcDC5oLM9oJ9X7dYNlHOQtbz Pua5wlCKtlzHIfLFO9DIkoQNGm NSBsik3hrpevqUTvlD6dMOEhij 0= [facility] Work Phone: Pathology report final diagnosis Narrative h5fntOIyBIEqaUWgDYGsFcvzqu KyBXOnoUVrV0PxilbhMWbiJF9w OY8yjNismGVzuPJoGGVhCrFlg5 esn020zEPrf4gdFFJCvglygBk2 vWwyS31ov6S2NpfkN4oxGUOiSQ syCKRlZUdgkEVjTTp0HFGuxLIh gdAjWlOhLLHhtZFmyEW7ICYvDK 9pbhcuKJvpBNwlYNEfrzH5RCGw kSSyR0UnKUXdUF6hstcsRIA4AG boMKWfSTH0ZjJlTFUxh8Hhvdk9 FqJkrMv4g2xuYIFyRPKlmFcgd5 lnREL7QWJeqMKjL3mcwW0yHJUa SB6kcneum5trKJmvCSnsQFCohI Z4vyQ7NEBzaVCsC8YviH0fUFIa SDDdipAetTbepX4iXvBcVhrqSd MrzIHfDWYnRIYDRW8XZTKKC2IK CHHZIQaFG23UMynlQZBfIWXVH6 WZSExbgKAeVROzBLLoeOKyEb5w PMRwZZbuVZAidZqdK4ZbC1ouz1 3yODVeOMHbttWaXSUiy1AyabVc my1nGD0uDAGnOXZhc6FiOkazWP FfHY4cOKHqOUZHTMHiL22rC2Hy ylGgrSNwkBWdxM3prORymEUhwV 2kevFyCtT7RPZfDQKmhZAeDTQ7 SVhuJDXqnbvxOSKgSt68KVzrSJ Mxb2JnX7MmlXUaXOCtCWAzw5i6 hGIxNNDarbJMTLGmJYEfXQh2Kq MpIGFuZCBDSzcsIHdoaWxlIHRo FGtpOVJrIG7tP5S6hSIuRWMtpj WrWYSuGJRkEBNdxW5mnY3wpkMj fRYlq1A8MXTdZRAzEk18YPAqaC Zcwg3onUItVLnaDiRsOZEhBJZq rM1khH5yv9WwnH1hgfLhxYj3ez DatbAlhwMjz8T6BMByNdHrz9me NSzyKZWwcJYhDWE4xM2uFFNpd8 NrOiAgQTFccGFyIFByZWxpbWlu DET9OZGkn6Dvm22qubZiq8IuB1 LbA4uyFW7lOPVqzYEqI9mjUb2o EBFpI3jxcWDcfJXLYNU1xT8tIo AgQWRlcXVhdGVccGFyIFZpYWJs VCL4lK7uubGrbUUeVLo7MLTjPZ fhDDIuxBNyLVQ2IFDnAQHngxC1 sMYxtcP8WRNrMbVFTSewW6EriF FuLlxwYXJccGFyfQ== [facility] Work Phone: Pathology report gross observation Narrative k5loxIAiAYGvyDETITMpXRRyWR 0edHbzwSm3pCxdXZXgwjG4zNXo XOwaw8kgZZC1z7bspxSFVcuvBR UbTUcsQYTiktogJkV3CVfiAMLl bdrvKYn6EVuzQRHowAS3GJSgnW ZfZ6PmOTBjOD7bivy6MNW3HCpi SCPxNqP2XITjJAa8BPZoxgM2Ha hrSAk2RNKuIGFbuEVuw6F4VMhc o8wrd5BuW5Sko0TyTIh7jP7Xy2 soVtamZ7kfxvYmhIMaVkR2aPVp IDZewYHeC186SNkal5ZliKHqBO h0TQydMRJoJ0VbJ3BbDVnqWdDv KZjkTNJbCOXpIXfhJPEeE3ZEFP DaQvq2FAf6TcCdSRs8BZm4GZFT OIO5VDehIhMpSUf3YYw1IKavkt xnYTf0HFLaAKltbUHmLL9hrOxb HejbcCgsd6GplBCwZFHqNLfarW QgNTEwMDIgXFxkYiBPVlIgIiAy NPO3Bds5GFKwSKf2NBcvM7UXHK CcRHDkATi3EFHnWhQ5OUn1GNED Id5wLZF2SiV1IgO4HTG6SFWmBO EpDN3kVFwcxOJeIArdy7JxEzPu TFZmMOxbmqK3AOYfuwIoRHotrG lmaR7jtVPsNvAwWVWzA03xx7MB s5YwWZ0WBZf8zeLtljFXEtpjlC UyvMkwPzvyefDiMUCdN8ZuscAz DYmpXAWmft0zxUraIBQpMRZssY VkIHdpdGggdGhlIHBhdGllbnRc F5M2piRbPG6rBCYkXNOdg7MgmY EszWBecD3gRYCwEB1tQQI9FaIg oG1kBc5rtRDrmI6mGEs5vCQwPP 8aPWBrhTHzzV5cUMR2QpuuQGDw PC06wPWucOjkAG2fvtG0EEFkel 27tv89HE4wHEFfWxVehCxmj7Uc PYNdCLmbWK33fdIkA5lhMRuuwR uoMbI5qyMvBgAdkWDcXoMbgIGu NmWqG38mXGDqTQEocRYmcR7jqf XmqxXelCSphJC5LIMubB1aoG12 oaUtkyGerdYlU5Gia5Q8uIRsVV XtwiYDYavnJIWoQLKdlLIUm9Xs NVKEPbSCMs5LQWYhqLGDQRZ7CU 0jVJbaHJCsT2NwJ5MghoK0d9fj zXsnf1ZcrXGyBQ8arFLaGB0ESL AyseNlMBzeqJffbF3soVHwMnJk DQp9 [facility] Work Phone: [facility] Work Phone: CBC W Auto Differential pane l (Bld)on 03-28-2025 Basophils (Bld) [#/Vol] 0.03 10*3/uL [facility] Basophils/100 WBC (Bld) 0.3 % 0.0 - 2.0 % [facility] Eosinophils (Bld) [#/Vol] 0.29 10*3/uL [facility] Eosinophils/100 WBC (Bld) 3.1 % 0.0 - 6.0 % [facility] Erythrocyte distribution width (RBC) [Ratio] 12.9 % 11.5 - 14.5 % [facility] Hematocrit (Bld) [Volume fraction] 39.6 % 36.0 - 46.0 % [facility] Hemoglobin (Bld) [Mass/Vol] 13.0 g/dL 12.0 - 16.0 g/dL [facility] Immature granulocytes (Bld) [#/Vol] 0.05 10*3/uL [facility] Immature granulocytes/100 WBC (Bld) 0.5 % 0.0 - 0.9 % [facility] Interpretation and review of laboratory results Abnormal [facility] Lymphocytes (Bld) [#/Vol] 1.07 10*3/uL Low [facility] Lymphocytes/100 WBC (Bld) 11.3 % 13.0 - 44.0 % [facility] MCH (RBC) [Entitic mass] 31.5 pg 26.0 - 34.0 pg [facility] MCHC (RBC) [Mass/Vol] 32.8 g/dL 32.0 - 36.0 g/dL [facility] MCV (RBC) [Entitic vol] 96 fL 80 - 100 fL [facility] Monocytes (Bld) [#/Vol] 0.82 10*3/uL [facility] Monocytes/100 WBC (Bld) 8.6 % 2.0 - 10.0 % [facility] Neutrophils (Bld) [#/Vol] 7.22 10*3/uL [facility] Neutrophils/100 WBC (Bld) 76.2 % 40.0 - 80.0 % [facility] Nucleated RBC/100 WBC (Bld) [Ratio] 0.0 % [facility] Platelets (Bld) [#/Vol] 200 10*3/uL [facility] RBC (Bld) [#/Vol] 4.13 10*6/uL [facility] WBC (Bld) [#/Vol] 9.5 10*3/uL [facility] Basophils (Bld) [#/Vol] 0.03 x10*3/uL Normal 0.00-0.10 [facility] Comment on above: Performed By: #### 5 7021-8 ####DERRICK Hall ([id number])[facility] ([facility])[id number] [place] [address] [place] [address] Basophils/100 WBC (Bld) 0.3 % Normal 0.0-2.0 [facility] Comment on above: Performed By: #### 5 7021-8 ####DERRICK Hall ([id number])[facility] ([facility])[address] [place] [address] Eosinophils (Bld) [#/Vol] 0.29 x10*3/uL Normal 0.00-0.70 [facility] Comment on above: Performed By: #### 5 7021-8 ####DERRICK Hall ([id number])[facility] ([facility])[address] [place] [address] Eosinophils/100 WBC (Bld) 3.1 % Normal 0.0-6.0 [facility] Comment on above: Performed By: #### 5 7021-8 ####DERRICK Hall ([id number])[facility] ([facility])[address] [place] [address] Erythrocyte distribution width (RBC) [Ratio] 12.9 % Normal 11.5-14.5 [facility] Comment on above: Performed By: #### 5 7021-8 ####DERRICK Hall ([id number])[facility] ([facility])[id number] [place] [address] Hematocrit (Bld) [Volume fraction] 39.6 % Normal 36.0-46.0 [facility] Comment on above: Performed By: #### 5 7021-8 ####DERRICK Hall ([id number])[facility] ([facility])[address] [place] [address] Hemoglobin (Bld) [Mass/Vol] 13.0 g/dL Normal 12.0-16.0 [facility] Comment on above: Performed By: #### 5 7021-8 ####DERRICK Hall ([id number])[facility] ([facility])[address] [place] [address] Immature granulocytes (Bld) [#/Vol] 0.05 x10*3/uL Normal 0.00-0.70 [facility] Comment on above: Performed By: #### 5 7021-8 ####DERRICK Hall ([id number])[facility] ([facility])[address] [place] [address] Immature granulocytes/100 WBC (Bld) 0.5 % Normal 0.0-0.9 [facility] Comment on above: Result Comment: Arlen ture Granulocyte Count (IG) includes promyelocytes, myelocytes and metamyelocytes but does not include bands. Percent differential counts (%) should be interpreted in the context of the absolute cell counts (cells/UL). Performed By: #### 5 7021-8 ####DERRICK Hall ([id number])[facility] ([facility])[address] [place] [address] Lymphocytes (Bld) [#/Vol] 1.07 x10*3/uL Low 1.20-4.80 [facility] Comment on above: Performed By: #### 5 7021-8 ####DERRICK Hall ([id number])[facility] ([facility])[id number] [place] [address] Lymphocytes/100 WBC (Bld) 11.3 % Normal 13.0-44.0 [facility] Comment on above: Performed By: #### 5 7021-8 ####DERRICK Hall ([id number])[facility] ([facility])[address] [place] [address] MCH (RBC) [Entitic mass] 31.5 pg Normal 26.0-34.0 [facility] Comment on above: Performed By: #### 5 7021-8 ####DERRICK BRAR L ([id number])[facility] ([facility])[id number] [place] [address] MCHC (RBC) [Mass/Vol] 32.8 g/dL Normal 32.0-36.0 [facility] Comment on above: Performed By: #### 5 7021-8 ####DERRICK Hall ([id number])[facility] [facility] ([facility])[address] [place] [address] MCV (RBC) [Entitic vol] 96 fL Normal 80-100 [facility] Comment on above: Performed By: #### 5 7021-8 ####DERRICK Hall ([id number])[facility] ([facility])[address] [place] [address] Monocytes (Bld) [#/Vol] 0.82 x10*3/uL Normal 0.10-1.00 [facility] Comment on above: Performed By: #### 5 7021-8 ####DERRICK Hall ([id number])[facility] ([facility])[address] [place] [address] Monocytes/100 WBC (Bld) 8.6 % Normal 2.0-10.0 [facility] Comment on above: Performed By: #### 5 7021-8 ####DERRICK Hall ([id number])[facility] ([facility])[address] [place] [address] Neutrophils (Bld) [#/Vol] 7.22 x10*3/uL Normal 1.20-7.70 [facility] Comment on above: Result Comment: Perc ent differential counts (%) should be interpreted in the context of the absolute cell counts (cells/uL). Performed By: #### 5 7021-8 ####DERRICK Hall ([id number])[facility] ([facility])[address] [place] [address] Neutrophils/100 WBC (Bld) 76.2 % Normal 40.0-80.0 [facility] Comment on above: Performed By: #### 5 7021-8 ####DERRICK Hall ([id number])[facility] ([facility])[address] [place] [address] Nucleated RBC/100 WBC (Bld) [Ratio] 0.0 /100 WBCs Normal 0.0-0.0 [facility] Comment on above: Performed By: #### 5 7021-8 ####DERRICK Hall ([id number])[facility] ([facility])[address] [place] [address] Platelets (Bld) [#/Vol] 200 x10*3/uL Normal 150-450 [facility] Comment on above: Performed By: #### 5 7021-8 ####DERRICK Hall ([id number])[facility] ([facility])[address] [place] [address] RBC (Bld) [#/Vol] 4.13 x10*6/uL Normal 4.00-5.20 [facility] Comment on above: Performed By: #### 5 7021-8 ####DERRICK Hall ([id number])[facility] ([facility])[address] [place] [address] WBC (Bld) [#/Vol] 9.5 x10*3/uL Normal 4.4-11.3 [facility] Comment on above: Performed By: #### 5 7021-8 ####DERRICK Hall ([id number])[facility] ([facility])[address] [place] [address] CBC panel Auto (Bld)on 03-28 Erythrocyte distribution width (RBC) [Ratio] 12.8 % 11.5 - 14.5 % [facility] Hematocrit (Bld) [Volume fraction] 42.3 % 36.0 - 46.0 % [facility] Hemoglobin (Bld) [Mass/Vol] 13.0 g/dL 12.0 - 16.0 g/dL [facility] Interpretation and review of laboratory results Abnormal [facility] MCH (RBC) [Entitic mass] 31.5 pg 26.0 - 34.0 pg [facility] MCHC (RBC) [Mass/Vol] 30.7 g/dL Low 32.0 - 36.0 g/dL [facility] MCV (RBC) [Entitic vol] 102 fL High 80 - 100 fL [facility] Nucleated RBC/100 WBC (Bld) [Ratio] 0.0 % [facility] Platelets (Bld) [#/Vol] 201 10*3/uL [facility] RBC (Bld) [#/Vol] 4.13 10*6/uL [facility] WBC (Bld) [#/Vol] 9.2 10*3/uL [facility] Erythrocyte distribution width (RBC) [Ratio] 12.8 % Normal 11.5-14.5 [facility] Comment on above: Performed By: #### 5 8410-2 ####DERRICK Hall ([id number])[facility] ([facility])[address] [place] [address] Hematocrit (Bld) [Volume fraction] 42.3 % Normal 36.0-46.0 [facility] Comment on above: Performed By: #### 5 8410-2 ####DERRICK Hall ([id number])[facility] ([facility])[address] [place] [address] Hemoglobin (Bld) [Mass/Vol] 13.0 g/dL Normal 12.0-16.0 [facility] Comment on above: Performed By: #### 5 8410-2 ####DERRICK Hall ([id number])[facility] ([facility])[address] [place] [address] MCH (RBC) [Entitic mass] 31.5 pg Normal 26.0-34.0 [facility] Comment on above: Performed By: #### 5 8410-2 ####DERRICK Hall ([id number])[facility] ([facility])[address] [place] [address] MCHC (RBC) [Mass/Vol] 30.7 g/dL Low 32.0-36.0 [facility] Comment on above: Performed By: #### 5 8410-2 ####DERRICK Hall ([id number])[facility] ([facility])[address] [place] [address] MCV (RBC) [Entitic vol] 102 fL High 80-100 [facility] Comment on above: Performed By: #### 5 8410-2 ####DERRICK Hall ([id number])[facility] ([facility])[address] [place] [address] Nucleated RBC/100 WBC (Bld) [Ratio] 0.0 /100 WBCs Normal 0.0-0.0 [facility] Comment on above: Performed By: #### 5 8410-2 ####DERRICK Hall ([id number])[facility] ([facility])[address] [place] [address] Platelets (Bld) [#/Vol] 201 x10*3/uL Normal 150-450 [facility] Comment on above: Performed By: #### 5 8410-2 ####DERRICK Hall ([id number])[facility] ([facility])[address] [place] [address] RBC (Bld) [#/Vol] 4.13 x10*6/uL Normal 4.00-5.20 [facility] Comment on above: Performed By: #### 5 8410-2 ####DERRICK Hall ([id number])[facility] ([facility])[address] [place] [address] WBC (Bld) [#/Vol] 9.2 x10*3/uL Normal 4.4-11.3 [facility] Comment on above: Performed By: #### 5 8410-2 ####DERRICK Hall ([id number])[facility] ([facility])[address] [place] [address] CHEST ABDOMEN PELVIS W IV CONTRASTon 03-28-2025 CT CHEST ABDOMEN PELVIS W IV CONTRAST Normal [facility] CT Chest and Abdomen and Pel vis W contrast Cookie 03-28-2025 [facility] Work Phone: Radiology Study observation (narrative) [facility] Work Phone: CT Chest and Abdomen and Pel vis W contrast IVOrdered By: Francis Ratliff on 03-28-2025 [facility] Work Phone: Glucose Test strip manual (B ld) [Mass/Vol]on 03-28-2025 Glucose [Mass/Vol] 101 mg/dL High 74-99 [facility] Comment on above: Performed By: #### 2 341-6 ####DERRICK Hall ([id number])[facility] ([facility])[address] [place] [address] Glucose [Mass/Vol] 112 mg/dL High 74 - 99 mg/dL [facility] Interpretation and review of laboratory results Abnormal [facility] Glucose [Mass/Vol] 112 mg/dL High 74-99 [facility] Comment on above: Performed By: #### 2 341-6 ####DERRICK Hall ([id number])[facility] ([facility])[address] [place] [address] Glucose [Mass/Vol] 113 mg/dL High 74 - 99 mg/dL [facility] Interpretation and review of laboratory results Abnormal [facility] Glucose [Mass/Vol] 113 mg/dL High 74-99 [facility] Comment on above: Performed By: #### 2 341-6 ####DERRICK Hall ([id number])[facility] ([facility])[address] [place] [address] Glucose [Mass/Vol] 116 mg/dL High 74 - 99 mg/dL [facility] Interpretation and review of laboratory results Abnormal [facility] Glucose [Mass/Vol] 116 mg/dL High 74-99 [facility] Comment on above: Performed By: #### 2 341-6 ####DERRICK Hall ([id number])[facility] ([facility])[address] [place] [address] Glucose [Mass/Vol] 109 mg/dL High 74-99 [facility] Comment on above: Performed By: #### 2 341-6 ####DERRICK Hall ([id number])[facility] ([facility])[address] [place] [address] Glucose [Mass/Vol] 106 mg/dL High 74 - 99 mg/dL [facility] Interpretation and review of laboratory results Abnormal [facility] Glucose [Mass/Vol] 106 mg/dL High 74-99 [facility] Comment on above: Performed By: #### 2 341-6 ####DERRICK Hall ([id number])[facility] ([facility])[address] [place] [address] Glucose [Mass/Vol] 107 mg/dL High 74 - 99 mg/dL [facility] Interpretation and review of laboratory results Abnormal [facility] Glucose [Mass/Vol] 107 mg/dL High 74-99 [facility] Comment on above: Performed By: #### 2 341-6 ####DERRICK Hall ([id number])[facility] ([facility])[address] [place] [address] Glucose [Mass/Vol] 119 mg/dL High 74 - 99 mg/dL [facility] Interpretation and review of laboratory results Abnormal [facility] Glucose [Mass/Vol] 119 mg/dL High 74-99 [facility] Comment on above: Performed By: #### 2 341-6 ####DERRICK Hall ([id number])[facility] ([facility])[address] [place] [address] MR BRAIN W AND WO IV CONTRAS Ton 03-28-2025 MR BRAIN W AND WO IV CONTRAST Normal [facility] Magnesiumon 03-28-2025 Magnesium [Mass/Vol] 2.20 mg/dL 1.60 - 2.40 mg/dL [facility] Magnesium [Mass/Vol] 2.20 mg/dL Normal 1.60-2.40 [facility] Comment on above: Performed By: #### 1 9123-9 ####DERRICK Hall ([id number])[facility] ([facility])[address] [place] [address] Magnesium [Mass/Vol]on 07-20 -2025 Interpretation and review of laboratory results Normal [facility] No Panel Informationon 03-28 [facility] Renal function 2000 panelon 03-28-2025 Albumin BCP dye [Mass/Vol] 3.1 g/dL Low 3.4 - 5.0 g/dL [facility] Anion gap [Moles/Vol] 15 mmol/L 10 - 2 0 mmol/L [facility] Calcium [Mass/Vol] 9.0 mg/dL 8.6 - 10. 6 mg/dL [facility] Chloride [Moles/Vol] 97 mmol/L Low 98 - 10 7 mmol/L [facility] CO2 [Moles/Vol] 29 mmol/L 21 - 32 mmol/L [facility] Creatinine [Mass/Vol] 0.46 mg/dL Low 0.50 - 1.05 mg/dL [facility] eGFR - PINF [facility] Glucose [Mass/Vol] 99 mg/dL 74 - 99 mg/dL [facility] Interpretation and review of laboratory results Abnormal [facility] Phosphate [Mass/Vol] 2.5 mg/dL 2.5 - 4 .9 mg/dL [facility] Potassium [Moles/Vol] 3.8 mmol/L 3.5 - 5.3 mmol/L [facility] Sodium [Moles/Vol] 137 mmol/L 136 - 145 mmol/L [facility] Urea nitrogen [Mass/Vol] 19 mg/dL 6 - 23 mg/dL [facility] Albumin BCP dye [Mass/Vol] 3.1 g/dL Low 3.4-5.0 [facility] Comment on above: Performed By: #### 2 4362-6 ####DERRICK Hall ([id number])[facility] ([facility])[address] [place] [address] Anion gap [Moles/Vol] 15 mmol/L Normal 10-20 [facility] Comment on above: Performed By: #### 2 4362-6 ####DERRICK Hall ([id number])[facility] ([facility])[address] [place] [address] Calcium [Mass/Vol] 9.0 mg/dL Normal 8.6-10.6 [facility] Comment on above: Performed By: #### 2 4362-6 ####DERRICK Hall ([id number])[facility] ([facility])[address] [place] [address] Chloride [Moles/Vol] 97 mmol/L Low 98-107 [facility] Comment on above: Performed By: #### 2 4362-6 ####DERRICK Hall ([id number])[facility] ([facility])[address] [place] [address] CO2 [Moles/Vol] 29 mmol/L Normal 21-32 [facility] Comment on above: Performed By: #### 2 4362-6 ####DERRICK Hall ([id number])[facility] ([facility])[address] [place] [address] Creatinine [Mass/Vol] 0.46 mg/dL Low 0.50-1.05 [facility] Comment on above: Performed By: #### 2 4362-6 ####DERRICK Hall ([id number])[facility] ([facility])[address] [place] [address] GFR/1.73 sq M.predicted MDRD (S/P/Bld) [Vol rate/Area] mL/min/{1.73_m2} Normal >60 [facility] Comment on above: Result Comment: Calc ulations of estimated GFR are performed using the 2020 CKD-EPI Study Refit equation without the race variable for the IDMS-Traceable creatinine methods.https://jasn.asnjournals.org/content/early/ N.7745302454 Performed By: #### 2 4362-6 ####DERRICK Hall ([id number])[facility] ([facility])[address] [place] [address] Glucose [Mass/Vol] 99 mg/dL Normal 74-99 [facility] Comment on above: Performed By: #### 2 4362-6 ####DERRICK Hall ([id number])[facility] ([facility])[address] [place] [address] Phosphate [Mass/Vol] 2.5 mg/dL Normal 2.5-4.9 [facility] Comment on above: Performed By: #### 2 4362-6 ####DERRICK Hall ([id number])[facility] ([facility])[address] [place] [address] Potassium [Moles/Vol] 3.8 mmol/L Normal 3.5-5.3 [facility] Comment on above: Performed By: #### 2 4362-6 ####DERRICK Hall ([id number])[facility] ([facility])[address] [place] [address] Sodium [Moles/Vol] 137 mmol/L Normal 136-145 [facility] Comment on above: Performed By: #### 2 4362-6 ####DERRICK Hall ([id number])[facility] ([facility])[address] [place] [address] Urea nitrogen [Mass/Vol] 19 mg/dL Normal 6-23 [facility] Comment on above: Performed By: #### 2 4362-6 ####DERRICK Hall ([id number])[facility] ([facility])[address] [place] [address] Albumin BCP dye [Mass/Vol] 3.1 g/dL Low 3.4 - 5.0 g/dL [facility] Anion gap [Moles/Vol] 14 mmol/L 10 - 2 0 mmol/L [facility] Calcium [Mass/Vol] 9.1 mg/dL 8.6 - 10. 6 mg/dL [facility] Chloride [Moles/Vol] 97 mmol/L Low 98 - 10 7 mmol/L [facility] CO2 [Moles/Vol] 34 mmol/L High 21 - 32 mmol/L [facility] Creatinine [Mass/Vol] 0.59 mg/dL 0.50 - 1.05 mg/dL [facility] eGFR - PINF [facility] Glucose [Mass/Vol] 100 mg/dL High 74 - 99 mg/dL [facility] Interpretation and review of laboratory results Abnormal [facility] Phosphate [Mass/Vol] 3.1 mg/dL 2.5 - 4 .9 mg/dL [facility] Potassium [Moles/Vol] 3.8 mmol/L 3.5 - 5.3 mmol/L [facility] Sodium [Moles/Vol] 141 mmol/L 136 - 145 mmol/L [facility] Urea nitrogen [Mass/Vol] 21 mg/dL 6 - 23 mg/dL [facility] Albumin BCP dye [Mass/Vol] 3.1 g/dL Low 3.4-5.0 [facility] Comment on above: Performed By: #### 2 4362-6 ####DERRICK Hall ([id number])[facility] ([facility])[address] [place] [address] Anion gap [Moles/Vol] 14 mmol/L Normal 10-20 [facility] Comment on above: Performed By: #### 2 4362-6 ####DERRICK Hall ([id number])[facility] ([facility])[address] [place] [address] Calcium [Mass/Vol] 9.1 mg/dL Normal 8.6-10.6 [facility] Comment on above: Performed By: #### 2 4362-6 ####DERRICK Hall ([id number])[facility] ([facility])[address] [place] [address] Chloride [Moles/Vol] 97 mmol/L Low 98-107 [facility] Comment on above: Performed By: #### 2 4362-6 ####DERRICK Hall ([id number])[facility] ([facility])[address] [place] [address] CO2 [Moles/Vol] 34 mmol/L High 21-32 [facility] Comment on above: Performed By: #### 2 4362-6 ####DERRICK Hall ([id number])[facility] ([facility])[address] [place] [address] Creatinine [Mass/Vol] 0.59 mg/dL Normal 0.50-1.05 [facility] Comment on above: Performed By: #### 2 4362-6 ####DERRICK Hall ([id number])[facility] ([facility])[address] [place] [address] GFR/1.73 sq M.predicted MDRD (S/P/Bld) [Vol rate/Area] mL/min/{1.73_m2} Normal >60 [facility] Comment on above: Result Comment: Calc ulations of estimated GFR are performed using the 2020 CKD-EPI Study Refit equation without the race variable for the IDMS-Traceable creatinine methods.https://jasn.asnjournals.org/content/early/ N.6251725193 Performed By: #### 2 4362-6 ####DERRICK Hall ([id number])[facility] ([facility])[address] [place] [address] Glucose [Mass/Vol] 100 mg/dL High 74-99 [facility] Comment on above: Performed By: #### 2 4362-6 ####DERRICK Hall ([id number])[facility] ([facility])[address] [place] [address] Phosphate [Mass/Vol] 3.1 mg/dL Normal 2.5-4.9 [facility] Comment on above: Performed By: #### 2 4362-6 ####DERRICK Hall ([id number])[facility] ([facility])[address] [place] [address] Potassium [Moles/Vol] 3.8 mmol/L Normal 3.5-5.3 [facility] Comment on above: Performed By: #### 2 4362-6 ####DERRICK Hall ([id number])[facility] ([facility])[address] [place] [address] Sodium [Moles/Vol] 141 mmol/L Normal 136-145 [facility] Comment on above: Performed By: #### 2 4362-6 ####DERRICK Hall ([id number])[facility] ([facility])[address] [place] [address] Urea nitrogen [Mass/Vol] 21 mg/dL Normal 6-23 [facility] Comment on above: Performed By: #### 2 4362-6 ####DERRICK Hall ([id number])[facility] ([facility])[address] [place] [address] XR CHEST 1 VIEWon 03-28-2025 XR CHEST 1 VIEW Normal [facility] XR Chest Single viewon 03-28 [facility] Work Phone: Radiology Study observation (narrative) [facility] Work Phone: XR Chest Single viewOrdered By: Shantanu Hui on 03-28-2025 [facility] Work Phone: CBC W Auto Differential pane l (Bld)on 03-27-2025 Basophils (Bld) [#/Vol] 0.03 x10*3/uL Normal 0.00-0.10 [facility] Comment on above: Performed By: #### 5 7021-8 ####DERRICK Hall ([id number])[facility] ([facility])[address] [place] [address] Basophils/100 WBC (Bld) 0.3 % Normal 0.0-2.0 [facility] Comment on above: Performed By: #### 5 7021-8 ####DERRICK Hall ([id number])[facility] ([facility])[address] [place] [address] Eosinophils (Bld) [#/Vol] 0.34 x10*3/uL Normal 0.00-0.70 [facility] Comment on above: Performed By: #### 5 7021-8 ####DERRICK Hall ([id number])[facility] ([facility])[address]403 [place] [address] Eosinophils/100 WBC (Bld) 2.9 % Normal 0.0-6.0 [facility] Comment on above: Performed By: #### 5 7021-8 ####DERRICK Hall ([id number])[facility] ([facility])[address] [place] [address] Erythrocyte distribution width (RBC) [Ratio] 13.2 % Normal 11.5-14.5 [facility] Comment on above: Performed By: #### 5 7021-8 ####DERRICK Hall ([id number])[facility] ([facility])[address] [place] [address] Hematocrit (Bld) [Volume fraction] 40.0 % Normal 36.0-46.0 [facility] Comment on above: Performed By: #### 5 7021-8 ####DERRICK Hall ([id number])[facility] ([facility])[address] [place] [address] Hemoglobin (Bld) [Mass/Vol] 13.3 g/dL Normal 12.0-16.0 [facility] Comment on above: Performed By: #### 5 7021-8 ####DERRICK Hall ([id number])[facility] ([facility])[address] [place] [address]992 Immature granulocytes (Bld) [#/Vol] 0.05 x10*3/uL Normal 0.00-0.70 [facility] Comment on above: Performed By: #### 5 7021-8 ####DERRICK Hall ([id number])[facility] ([facility])[address] [place] [address] Immature granulocytes/100 WBC (Bld) 0.4 % Normal 0.0-0.9 [facility] Comment on above: Result Comment: Arlen ture Granulocyte Count (IG) includes promyelocytes, myelocytes and metamyelocytes but does not include bands. Percent differential counts (%) should be interpreted in the context of the absolute cell counts (cells/UL). Performed By: #### 5 7021-8 ####DERRICK Hall ([id number])[facility] ([facility])[address] [place] [address] Lymphocytes (Bld) [#/Vol] 0.87 x10*3/uL Low 1.20-4.80 [facility] Comment on above: Performed By: #### 5 7021-8 ####DERRICK Hall ([id number])[facility] ([facility])[address] [place] [address] 29098 Lymphocytes/100 WBC (Bld) 7.5 % Normal 13.0-44.0 [facility] Comment on above: Performed By: #### 5 7021-8 ####DERRICK Hall ([id number])[facility] ([facility])[address] [place] [address]35 MCH (RBC) [Entitic mass] 31.4 pg Normal 26.0-34.0 [facility] Comment on above: Performed By: #### 5 7021-8 ####DERRICK Hall ([id number])[facility] ([facility])[address] [place] [address] MCHC (RBC) [Mass/Vol] 33.3 g/dL Normal 32.0-36.0 [facility] Comment on above: Performed By: #### 5 7021-8 ####DERRICK Hall ([id number])[facility] ([facility])[address]99 [place] [address] MCV (RBC) [Entitic vol] 94 fL Normal 80-100 [facility] Comment on above: Performed By: #### 5 7021-8 ####DERRICK Hall ([id number])[facility] ([facility])[address] [place] [address] Monocytes (Bld) [#/Vol] 0.80 x10*3/uL Normal 0.10-1.00 [facility] Comment on above: Performed By: #### 5 7021-8 ####DERRICK Hall ([id number])[facility] ([facility])[address]262 [place] [address] Monocytes/100 WBC (Bld) 6.9 % Normal 2.0-10.0 [facility] Comment on above: Performed By: #### 5 7021-8 ####DERRICK Hall ([id number])[facility] ([facility])[address] [place] [address] Neutrophils (Bld) [#/Vol] 9.49 x10*3/uL High 1.20-7.70 [facility] Comment on above: Result Comment: Perc ent differential counts (%) should be interpreted in the context of the absolute cell counts (cells/uL). Performed By: #### 5 7021-8 ####DERRICK Hall ([id number])[facility] ([facility])[address] [place] [address] Neutrophils/100 WBC (Bld) 82.0 % Normal 40.0-80.0 [facility] Comment on above: Performed By: #### 5 7021-8 ####DERRICK Hall ([id number])[facility] ([facility])[address] [place] [address] Nucleated RBC/100 WBC (Bld) [Ratio] 0.0 /100 WBCs Normal 0.0-0.0 [facility] Comment on above: Performed By: #### 5 7021-8 ####DERRICK Hall ([id number])[facility] ([facility])[address] [place] [address] Platelets (Bld) [#/Vol] 192 x10*3/uL Normal 150-450 [facility] Comment on above: Performed By: #### 5 7021-8 ####DERRICK Hall ([id number])[facility] ([facility])[address] [place] [address] RBC (Bld) [#/Vol] 4.24 x10*6/uL Normal 4.00-5.20 [facility] Comment on above: Performed By: #### 5 7021-8 ####DERRICK Hall ([id number])[facility] ([facility])[address] [place] [address] WBC (Bld) [#/Vol] 11.6 x10*3/uL High 4.4-11.3 [facility] Comment on above: Performed By: #### 5 7021-8 ####DERRICK Hall ([id number])[facility] ([facility])[address] [place] [address] CBC panel Auto (Bld)on 03-27 Erythrocyte distribution width (RBC) [Ratio] 13.0 % 11.5 - 14.5 % [facility] Hematocrit (Bld) [Volume fraction] 39.8 % 36.0 - 46.0 % [facility] Hemoglobin (Bld) [Mass/Vol] 13.3 g/dL 12.0 - 16.0 g/dL [facility] Interpretation and review of laboratory results Normal [facility] MCH (RBC) [Entitic mass] 31.7 pg 26.0 - 34.0 pg [facility] MCHC (RBC) [Mass/Vol] 33.4 g/dL 32.0 - 36.0 g/dL [facility] MCV (RBC) [Entitic vol] 95 fL 80 - 100 fL [facility] Nucleated RBC/100 WBC (Bld) [Ratio] 0.0 % [facility] Platelets (Bld) [#/Vol] 202 10*3/uL [facility] RBC (Bld) [#/Vol] 4.20 10*6/uL [facility] WBC (Bld) [#/Vol] 10.3 10*3/uL [facility] Erythrocyte distribution width (RBC) [Ratio] 13.0 % Normal 11.5-14.5 [facility] Comment on above: Performed By: #### 5 8410-2 ####DERRICK Hall ([id number])[facility] ([facility])[address] [place] [address] Hematocrit (Bld) [Volume fraction] 39.8 % Normal 36.0-46.0 [facility] Comment on above: Performed By: #### 5 8410-2 ####DERRICK Hall ([id number])[facility] ([facility])[address] [place] [address] Hemoglobin (Bld) [Mass/Vol] 13.3 g/dL Normal 12.0-16.0 [facility] Comment on above: Performed By: #### 5 8410-2 ####DERRICK Hall ([id number])[facility] ([facility])[address] [place] [address] MCH (RBC) [Entitic mass] 31.7 pg Normal 26.0-34.0 [facility] Comment on above: Performed By: #### 5 8410-2 ####DERRICK Hall ([id number])[facility] ([facility])[address] [place] [address] MCHC (RBC) [Mass/Vol] 33.4 g/dL Normal 32.0-36.0 [facility] Comment on above: Performed By: #### 5 8410-2 ####DERRICK Hall ([id number])[facility] ([facility])[address] [place] [address] MCV (RBC) [Entitic vol] 95 fL Normal 80-100 [facility] Comment on above: Performed By: #### 5 8410-2 ####DERIRCK Hall ([id number])[facility] ([facility])[address] [place] [address] Nucleated RBC/100 WBC (Bld) [Ratio] 0.0 /100 WBCs Normal 0.0-0.0 [facility] Comment on above: Performed By: #### 5 8410-2 ####DERRICK Hall ([id number])[facility] ([facility])[address] [place] [address] Platelets (Bld) [#/Vol] 202 x10*3/uL Normal 150-450 [facility] Comment on above: Performed By: #### 5 8410-2 ####DERRICK Hall ([id number])[facility] ([facility])[address] [place] [address] RBC (Bld) [#/Vol] 4.20 x10*6/uL Normal 4.00-5.20 [facility] Comment on above: Performed By: #### 5 8410-2 ####DERRICK Hall ([id number])[facility] ([facility])[address] [place] [address] WBC (Bld) [#/Vol] 10.3 x10*3/uL Normal 4.4-11.3 [facility] Comment on above: Performed By: #### 5 8410-2 ####DERRICK Hall ([id number])[facility] ([facility])[id number] [place] [address] Glucose Test strip manual (B ld) [Mass/Vol]on 03-27-2025 Glucose [Mass/Vol] 124 mg/dL High 74 - 99 mg/dL [facility] Interpretation and review of laboratory results Abnormal [facility] Glucose [Mass/Vol] 124 mg/dL High 74-99 [facility] Comment on above: Performed By: #### 2 341-6 ####DERRICK Hall ([id number])[facility] ([facility])[address] [place] [address] Glucose [Mass/Vol] 132 mg/dL High 74 - 99 mg/dL [facility] Glucose [Mass/Vol] 132 mg/dL High 74-99 [facility] Comment on above: Performed By: #### 2 341-6 ####DERRICK Hall ([id number])[facility] ([facility])[address] [place] [address] Glucose [Mass/Vol] 146 mg/dL High 74-99 [facility] Comment on above: Performed By: #### 2 341-6 ####DERRICK Hall ([id number])[facility] ([facility])[address] [place] [address] Glucose [Mass/Vol] 130 mg/dL High 74-99 [facility] Comment on above: Performed By: #### 2 341-6 ####DERRICK Hall ([id number])[facility] ([facility])[address] [place] [address] Glucose [Mass/Vol] 136 mg/dL High 74-99 [facility] Comment on above: Performed By: #### 2 341-6 ####DERRICK Hall ([id number])[facility] ([facility])[address] [place] [address] Magnesiumon 03-27-2025 Magnesium [Mass/Vol] 1.89 mg/dL 1.60 - 2.40 mg/dL [facility] Magnesium [Mass/Vol] 1.89 mg/dL Normal 1.60-2.40 [facility] Comment on above: Performed By: #### 1 9123-9 ####DERRICK Hall ([id number])[facility] ([facility])[address] [place] [address] Magnesium [Mass/Vol] 1.88 mg/dL Normal 1.60-2.40 [facility] Comment on above: Performed By: #### 1 9123-9 ####DERRICK Hall ([id number])[facility] ([facility])[address] [place] [address] Magnesium [Mass/Vol]on 03-27 Interpretation and review of laboratory results Normal [facility] No Panel Informationon 03-27 [facility] Test Comment The test request has been received by the lab and will be reviewed. [facility] Renal function 2000 panelon 03-27-2025 Albumin BCP dye [Mass/Vol] 3.2 g/dL Low 3.4 - 5.0 g/dL [facility] Anion gap [Moles/Vol] 15 mmol/L 10 - 2 0 mmol/L [facility] Calcium [Mass/Vol] 9.3 mg/dL 8.6 - 10. 6 mg/dL [facility] Chloride [Moles/Vol] 97 mmol/L Low 98 - 10 7 mmol/L [facility] CO2 [Moles/Vol] 35 mmol/L High 21 - 32 mmol/L [facility] Creatinine [Mass/Vol] 0.61 mg/dL 0.50 - 1.05 mg/dL [facility] eGFR - PINF [facility] Glucose [Mass/Vol] 129 mg/dL High 74 - 99 mg/dL [facility] Interpretation and review of laboratory results Abnormal [facility] Phosphate [Mass/Vol] 3.0 mg/dL 2.5 - 4 .9 mg/dL [facility] Potassium [Moles/Vol] 3.6 mmol/L 3.5 - 5.3 mmol/L [facility] Sodium [Moles/Vol] 143 mmol/L 136 - 145 mmol/L [facility] Urea nitrogen [Mass/Vol] 18 mg/dL 6 - 23 mg/dL [facility] Albumin BCP dye [Mass/Vol] 3.2 g/dL Low 3.4-5.0 [facility] Comment on above: Performed By: #### 2 4362-6 ####DERRICK Hall ([id number])[facility] ([facility])[address] [place] [address] Anion gap [Moles/Vol] 15 mmol/L Normal 10-20 [facility] Comment on above: Performed By: #### 2 4362-6 ####DERRICK Hall ([id number])[facility] ([facility])[address] [place] [address] Calcium [Mass/Vol] 9.3 mg/dL Normal 8.6-10.6 [facility] Comment on above: Performed By: #### 2 4362-6 ####DERRICK Hall ([id number])[facility] ([facility])[address] [place] [address] Chloride [Moles/Vol] 97 mmol/L Low 98-107 [facility] Comment on above: Performed By: #### 2 4362-6 ####DERRICK Hall ([id number])[facility] ([facility])[address] [place] [address] CO2 [Moles/Vol] 35 mmol/L High 21-32 [facility] Comment on above: Performed By: #### 2 4362-6 ####DERRICK Hall ([id number])[facility] ([facility])[address] [place] [address] Creatinine [Mass/Vol] 0.61 mg/dL Normal 0.50-1.05 [facility] Comment on above: Performed By: #### 2 4362-6 ####DERRICK Hall ([id number])[facility] ([facility])[address] [place] [address] GFR/1.73 sq M.predicted MDRD (S/P/Bld) [Vol rate/Area] mL/min/{1.73_m2} Normal >60 [facility] Comment on above: Result Comment: Calc ulations of estimated GFR are performed using the 2020 CKD-EPI Study Refit equation without the race variable for the IDMS-Traceable creatinine methods.https://jasn.asnjournals.org/content/early// N.5450508555 Performed By: #### 2 4362-6 ####DERRICK Hall ([id number])[facility] ([facility])[address] [place] [address] Glucose [Mass/Vol] 129 mg/dL High 74-99 [facility] Comment on above: Performed By: #### 2 4362-6 ####DERRICK Hall ([id number])[facility] ([facility])[address] [place] [address] Phosphate [Mass/Vol] 3.0 mg/dL Normal 2.5-4.9 [facility] Comment on above: Performed By: #### 2 4362-6 ####DERRICK Hall ([id number])[facility] ([facility])[address] [place] [address] Potassium [Moles/Vol] 3.6 mmol/L Normal 3.5-5.3 [facility] Comment on above: Performed By: #### 2 4362-6 ####DERRICK Hall ([id number])[facility] ([facility])[address] [place] [address] Sodium [Moles/Vol] 143 mmol/L Normal 136-145 [facility] Comment on above: Performed By: #### 2 4362-6 ####DERRICK Hall ([id number])[facility] ([facility])[address] [place] [address] Urea nitrogen [Mass/Vol] 18 mg/dL Normal 6-23 [facility] Comment on above: Performed By: #### 2 4362-6 ####DERRICK Hall ([id number])[facility] ([facility])[address] [place] [address] Albumin BCP dye [Mass/Vol] 3.1 g/dL Low 3.4-5.0 [facility] Comment on above: Performed By: #### 2 4362-6 ####DERRICK Hall ([id number])[facility] ([facility])[address] [place] [address] Anion gap [Moles/Vol] 16 mmol/L Normal 10-20 [facility] Comment on above: Performed By: #### 2 4362-6 ####DERRICK Hall (43829)[facility] ([facility])[address] [place] [address] Calcium [Mass/Vol] 9.5 mg/dL Normal 8.6-10.6 [facility] Comment on above: Performed By: #### 2 4362-6 ####DERRICK Hall ([id number])[facility] ([facility])[address] [place] [address] Chloride [Moles/Vol] 103 mmol/L Normal 98-107 [facility] Comment on above: Performed By: #### 2 4362-6 ####DERRICK Hall ([id number])[facility] ([facility])[address] [place] [address] CO2 [Moles/Vol] 31 mmol/L Normal 21-32 [facility] Comment on above: Performed By: #### 2 4362-6 ####DERRICK Hall ([id number])[facility] ([facility])[address] [place] [address] Creatinine [Mass/Vol] 0.71 mg/dL Normal 0.50-1.05 [facility] Comment on above: Performed By: #### 2 4362-6 ####DERRICK Hall ([id number])[facility] ([facility])[address] [place] [address] GFR/1.73 sq M.predicted MDRD (S/P/Bld) [Vol rate/Area] mL/min/{1.73_m2} Normal >60 [facility] Comment on above: Result Comment: Calc ulations of estimated GFR are performed using the 2020 CKD-EPI Study Refit equation without the race variable for the IDMS-Traceable creatinine methods.https://jasn.asnjournals.org/content/early// N.4440291561 Performed By: #### 2 4362-6 ####DERRICK Hall ([id number])[facility] ([facility])[address] [place] [address] Glucose [Mass/Vol] 133 mg/dL High 74-99 [facility] Comment on above: Performed By: #### 2 4362-6 ####DERRICK Hall ([id number])[facility] ([facility])[address] [place] [address] Phosphate [Mass/Vol] 3.1 mg/dL Normal 2.5-4.9 [facility] Comment on above: Performed By: #### 2 4362-6 ####DERRICK Hall ([id number])[facility] ([facility])[address]504 [place] [address] Potassium [Moles/Vol] 3.6 mmol/L Normal 3.5-5.3 [facility] Comment on above: Performed By: #### 2 4362-6 ####DERRICK Hall (50084)[facility] ([facility])[address] [place] [address] Sodium [Moles/Vol] 146 mmol/L High 136-145 [facility] Comment on above: Performed By: #### 2 4362-6 ####DERRICK Hall ([id number])[facility] ([facility])[address] [place] [address] Urea nitrogen [Mass/Vol] 20 mg/dL Normal 6-23 [facility] Comment on above: Performed By: #### 2 4362-6 ####DERRICK Hall ([id number])[facility] ([facility])[address] [place] [address] CBC W Auto Differential pane l (Bld)on 03-26-2025 Basophils (Bld) [#/Vol] 0.03 x10*3/uL Normal 0.00-0.10 [facility] Comment on above: Performed By: #### 5 7021-8 ####DERRICK Hall ([id number])[facility] ([facility])[address]58 [place] [address] Basophils/100 WBC (Bld) 0.3 % Normal 0.0-2.0 [facility] Comment on above: Performed By: #### 5 7021-8 ####DERRICK Hall ([id number])[facility] ([facility])[address]83 [place] [address] Eosinophils (Bld) [#/Vol] 0.21 x10*3/uL Normal 0.00-0.70 [facility] Comment on above: Performed By: #### 5 7021-8 ####DERRICK Hall ([id number])[facility] ([facility])[address] [place] [address] Eosinophils/100 WBC (Bld) 2.1 % Normal 0.0-6.0 [facility] Comment on above: Performed By: #### 5 7021-8 ####DERRICK Hall ([id number])[facility] ([facility])[address]198 [place] [address] Erythrocyte distribution width (RBC) [Ratio] 13.3 % Normal 11.5-14.5 [facility] Comment on above: Performed By: #### 5 7021-8 ####DERRICK Hall ([id number])[facility] ([facility])[address] [place] [address] Hematocrit (Bld) [Volume fraction] 36.5 % Normal 36.0-46.0 [facility] Comment on above: Performed By: #### 5 7021-8 ####DERRICK Hall ([id number])[facility] ([facility])[address] [place] [address] Hemoglobin (Bld) [Mass/Vol] 12.0 g/dL Normal 12.0-16.0 [facility] Comment on above: Performed By: #### 5 7021-8 ####DERRICK Hall ([id number])[facility] ([facility])[address] [place] [address] Immature granulocytes (Bld) [#/Vol] 0.08 x10*3/uL Normal 0.00-0.70 [facility] Comment on above: Performed By: #### 5 7021-8 ####DERRICK Hall ([id number])[facility] ([facility])[address] [place] [address] Immature granulocytes/100 WBC (Bld) 0.8 % Normal 0.0-0.9 [facility] Comment on above: Result Comment: Arlen ture Granulocyte Count (IG) includes promyelocytes, myelocytes and metamyelocytes but does not include bands. Percent differential counts (%) should be interpreted in the context of the absolute cell counts (cells/UL). Performed By: #### 5 7021-8 ####DERRICK Hall ([id number])[facility] ([facility])[address]57 [place] [address] Lymphocytes (Bld) [#/Vol] 0.81 x10*3/uL Low 1.20-4.80 [facility] Comment on above: Performed By: #### 5 7021-8 ####DERRICK Hall ([id number])[facility] ([facility])[address]61 [place] [address] Lymphocytes/100 WBC (Bld) 8.1 % Normal 13.0-44.0 [facility] Comment on above: Performed By: #### 5 7021-8 ####DERRICK Hall ([id number])[facility] ([facility])[address] [place] [address] MCH (RBC) [Entitic mass] 30.8 pg Normal 26.0-34.0 [facility] Comment on above: Performed By: #### 5 7021-8 ####DERRICK Hall ([id number])[facility] ([facility])[address]14 [place] [address] MCHC (RBC) [Mass/Vol] 32.9 g/dL Normal 32.0-36.0 [facility] Comment on above: Performed By: #### 5 7021-8 ####DERRICK Hall ([id number])[facility] ([facility])[address]12 [place] [address] MCV (RBC) [Entitic vol] 94 fL Normal 80-100 [facility] Comment on above: Performed By: #### 5 7021-8 ####DERRICK Hall ([id number])[facility] ([facility])[address]91 [place] [address] Monocytes (Bld) [#/Vol] 0.69 x10*3/uL Normal 0.10-1.00 [facility] Comment on above: Performed By: #### 5 7021-8 ####DERRICK Hall (65591)[facility] ([facility])[address]63 [place] [address] Monocytes/100 WBC (Bld) 6.9 % Normal 2.0-10.0 [facility] Comment on above: Performed By: #### 5 7021-8 ####DERRICK Hall ([id number])[facility] ([facility])87165 [place] [address] Neutrophils (Bld) [#/Vol] 8.13 x10*3/uL High 1.20-7.70 [facility] Comment on above: Result Comment: Perc ent differential counts (%) should be interpreted in the context of the absolute cell counts (cells/uL). Performed By: #### 5 7021-8 ####DERRICK Hall ([id number])[facility] ([facility])[address]610 [place] [address] Neutrophils/100 WBC (Bld) 81.8 % Normal 40.0-80.0 [facility] Comment on above: Performed By: #### 5 7021-8 ####DERRICK Hall ([id number])[facility] ([facility])[address]176 [place] [address] Nucleated RBC/100 WBC (Bld) [Ratio] 0.0 /100 WBCs Normal 0.0-0.0 [facility] Comment on above: Performed By: #### 5 7021-8 ####DERRICK Hall ([id number])[facility] ([facility])[address]40 [place] [address] Platelets (Bld) [#/Vol] 183 x10*3/uL Normal 150-450 [facility] Comment on above: Performed By: #### 5 7021-8 ####DERRICK Hall ([id number])[facility] ([facility])[address]96 [place] [address] RBC (Bld) [#/Vol] 3.90 x10*6/uL Low 4.00-5.20 [facility] Comment on above: Performed By: #### 5 7021-8 ####DERRICK Hall ([id number])[facility] ([facility])[address]34 [place] [address] WBC (Bld) [#/Vol] 10.0 x10*3/uL Normal 4.4-11.3 [facility] Comment on above: Performed By: #### 5 7021-8 ####DERRICK Hall ([id number])[facility] ([facility])[address]76 [place] [address] Gas panel (BldV)on 5 Base excess Calc (BldV) [Moles/Vol] 3.7 mmol/L High -2.0-3.0 [facility] Comment on above: Performed By: #### 2 4339-4 ####DERRICK Hall ([id number])[facility] ([facility])[address] [place] [address] CO2 (BldV) [Partial pressure] 43 mm Hg Normal 41-51 [facility] Comment on above: Performed By: #### 2 4339-4 ####DERRICK Hall (25279)[facility] ([facility])[address] [place] [address]97[address] HCO3 (Bld) [Moles/Vol] 28.5 mmol/L High 22.0-26.0 [facility] Comment on above: Performed By: #### 2 4339-4 ####DERRICK Hall ([id number])[facility] ([facility])[address] [place] [address] Inhaled oxygen concentration 45 % Normal [facility] Comment on above: Performed By: #### 2 4339-4 ####DERRICK Hall ([id number])[facility] ([facility])[address]218 [place] [address] Oxygen (BldV) [Partial pressure] 56 mm Hg High 35-45 [facility] Comment on above: Performed By: #### 2 4339-4 ####DERRICK Hall ([id number])[facility] ([facility])[address] [place] [address] Oxygen saturation in Venous blood 90 % High 45-75 [facility] Comment on above: Performed By: #### 2 4339-4 ####DERRICK Hall ([id number])[facility] ([facility])[address]356 [place] [address] Oxyhemoglobin (BldV) [Mass fraction] 88.0 % High 45.0-75.0 [facility] Comment on above: Performed By: #### 2 4339-4 ####DERRICK Hall ([id number])[facility] ([facility])[address]448 [place] [address] pH (BldV) 7.43 [pH] Normal 7.33-7.43 [facility] Comment on above: Performed By: #### 2 4339-4 ####DERRICK Hall ([id number])[facility] ([facility])[address] [place] [address]809 Glucose Test strip manual (B ld) [Mass/Vol]on 03-26-2025 Glucose [Mass/Vol] 140 mg/dL High [address] [place] [address] Comment on above: Performed By: #### 2 341-6 ####DERRICK Hall ([id number])[facility] ([facility])[address]78 [place] [address] Glucose [Mass/Vol] 163 mg/dL High [address] [place] [address] Comment on above: Performed By: #### 2 341-6 ####DERRICK Hall ([id number])[facility] ([facility])[address]349 [place] [address] Glucose [Mass/Vol] 195 mg/dL High [address] [place] [address] Comment on above: Performed By: #### 2 341-6 ####DERRICK Hall ([id number])[facility] ([facility])[address] [place] [address] Glucose [Mass/Vol] 191 mg/dL High [address] [place] [address] Comment on above: Result Comment: RN N OTIFIED Performed By: #### 2 341-6 ####DERRICK Hall ([id number])[facility] ([facility])[address] [place] [address] Glucose [Mass/Vol] 186 mg/dL High 74-99 [facility] Comment on above: Result Comment: CHARLES N OTIFIED Performed By: #### 2 341-6 ####DERRICK Hall ([id number])[facility] ([facility])[address] [place] [address] Glucose [Mass/Vol] 153 mg/dL High 74-99 [facility] Comment on above: Performed By: #### 2 341-6 ####DERRICK Hall ([id number])[facility] ([facility])[address] [place] [address] Magnesiumon 03-26-2025 Magnesium [Mass/Vol] 1.83 mg/dL Normal 1.60-2.40 [facility] Comment on above: Result Comment: MILD HEMOLYSIS DETECTED. The result may be falsely elevated due to hemolysis or other interferents. Clinical correlation is recommended. Repeat testing may be considered. Performed By: #### 1 9123-9 ####DERRICK Hall ([id number])[facility] ([facility])[address] [place] [address] Magnesium [Mass/Vol] 1.86 mg/dL Normal 1.60-2.40 [facility] Comment on above: Result Comment: MILD HEMOLYSIS DETECTED. The result may be falsely elevated due to hemolysis or other interferents. Clinical correlation is recommended. Repeat testing may be considered. Performed By: #### 1 9123-9 ####DERRICK Hall ([id number])[facility] ([facility])[address] [place] [address] Renal function 2000 panelon 03-26-2025 Albumin BCP dye [Mass/Vol] 3.2 g/dL Low 3.4-5.0 [facility] Comment on above: Performed By: #### 2 4362-6 ####DERRICK Hall ([id number])[facility] ([facility])[address] [place] [address] Anion gap [Moles/Vol] 16 mmol/L Normal 10-20 [facility] Comment on above: Performed By: #### 2 4362-6 ####DERRICK BRAR L ([id number])[facility] ([facility])[address] [place] [address] Calcium [Mass/Vol] 9.5 mg/dL Normal 8.6-10.6 [facility] Comment on above: Performed By: #### 2 4362-6 ####DERRICK BRAR L ([id number])[facility] ([facility])[address] [place] [address] Chloride [Moles/Vol] 101 mmol/L Normal 98-107 [facility] Comment on above: Performed By: #### 2 4362-6 ####DERRICK BRAR L ([id number])[facility] ([facility])[address] [place] [address] CO2 [Moles/Vol] 29 mmol/L Normal 21-32 [facility] Comment on above: Performed By: #### 2 4362-6 ####DERRICK BRAR L ([id number])[facility] ([facility])[address] [place] [address] Creatinine [Mass/Vol] 0.74 mg/dL Normal 0.50-1.05 [facility] Comment on above: Performed By: #### 2 4362-6 ####DERRICK BRAR L ([id number])[facility] ([facility])[address] [place] [address] GFR/1.73 sq M.predicted MDRD (S/P/Bld) [Vol rate/Area] mL/min/{1.73_m2} Normal >60 [facility] Comment on above: Result Comment: Calc ulations of estimated GFR are performed using the 2020 CKD-EPI Study Refit equation without the race variable for the IDMS-Traceable creatinine methods.https://jasn.asnjournals.org/content/early/ N.6417453252 Performed By: #### 2 4362-6 ####DERRICK Hall ([id number])[facility] ([facility])[address] [place] [address] Glucose [Mass/Vol] 152 mg/dL High 74-99 [facility] Comment on above: Performed By: #### 2 4362-6 ####DERRICK Hall ([id number])[facility] ([facility])[address] [place] [address] Phosphate [Mass/Vol] 3.1 mg/dL Normal 2.5-4.9 [facility] Comment on above: Result Comment: MILD HEMOLYSIS DETECTED. The result may be falsely elevated due to hemolysis or other interferents. Clinical correlation is recommended. Repeat testing may be considered. Performed By: #### 2 4362-6 ####DERRICK Hall ([id number])[facility] ([facility])[address] [place] [address] Potassium [Moles/Vol] 4.0 mmol/L Normal 3.5-5.3 [facility] Comment on above: Result Comment: MILD HEMOLYSIS DETECTED. The result may be falsely elevated due to hemolysis or other interferents. Clinical correlation is recommended. Repeat testing may be considered. Performed By: #### 2 4362-6 ####DERRICK Hall ([id number])[facility] ([facility])[address] [place] [address] Sodium [Moles/Vol] 142 mmol/L Normal 136-145 [facility] Comment on above: Performed By: #### 2 4362-6 ####DERRICK Hall ([id number])[facility] ([facility])[address] [place] [address] Urea nitrogen [Mass/Vol] 18 mg/dL Normal 6-23 [facility] Comment on above: Performed By: #### 2 4362-6 ####DERRICK Hall ([id number])[facility] ([facility])[address] [place] [address] Albumin BCP dye [Mass/Vol] 2.9 g/dL Low 3.4-5.0 [facility] Comment on above: Performed By: #### 2 4362-6 ####DERRICK Hall ([id number])[facility] ([facility])[address] [place] [address] Anion gap [Moles/Vol] 13 mmol/L Normal 10-20 [facility] Comment on above: Performed By: #### 2 4362-6 ####DERRICK Hall ([id number])[facility] ([facility])[address] [place] [address] Calcium [Mass/Vol] 9.2 mg/dL Normal 8.6-10.6 [facility] Comment on above: Performed By: #### 2 4362-6 ####DERRICK Hall ([id number])[facility] ([facility])[address] [place] [address] Chloride [Moles/Vol] 103 mmol/L Normal 98-107 [facility] Comment on above: Performed By: #### 2 4362-6 ####DERRICK Hall ([id number])[facility] ([facility])[address] [place] [address] CO2 [Moles/Vol] 28 mmol/L Normal 21-32 [facility] Comment on above: Performed By: #### 2 4362-6 ####DERRICK Hall ([id number])[facility] ([facility])[address] [place] [address] Creatinine [Mass/Vol] 0.70 mg/dL Normal 0.50-1.05 [facility] Comment on above: Performed By: #### 2 4362-6 ####DERRICK Hall ([id number])[facility] ([facility])[address] [place] [address] GFR/1.73 sq M.predicted MDRD (S/P/Bld) [Vol rate/Area] mL/min/{1.73_m2} Normal >60 [facility] Comment on above: Result Comment: Calc ulations of estimated GFR are performed using the 2020 CKD-EPI Study Refit equation without the race variable for the IDMS-Traceable creatinine methods.https://jasn.asnjournals.org/content/early/ N.8663177066 Performed By: #### 2 4362-6 ####DERRICK Hall ([id number])[facility] ([facility])[address] [place] [address] Glucose [Mass/Vol] 183 mg/dL High 74-99 [facility] Comment on above: Performed By: #### 2 4362-6 ####DERRICK Hall ([id number])[facility] ([facility])[address] [place] [address] Phosphate [Mass/Vol] 2.9 mg/dL Normal 2.5-4.9 [facility] Comment on above: Result Comment: MILD HEMOLYSIS DETECTED. The result may be falsely elevated due to hemolysis or other interferents. Clinical correlation is recommended. Repeat testing may be considered. Performed By: #### 2 4362-6 ####DERRICK Hall ([id number])[facility] ([facility])[address] [place] [address] Potassium [Moles/Vol] 4.3 mmol/L Normal 3.5-5.3 [facility] Comment on above: Result Comment: MILD HEMOLYSIS DETECTED. The result may be falsely elevated due to hemolysis or other interferents. Clinical correlation is recommended. Repeat testing may be considered. Performed By: #### 2 4362-6 ####DERRICK Hall ([id number])[facility] ([facility])[address] [place] [address] Sodium [Moles/Vol] 140 mmol/L Normal 136-145 [facility] Comment on above: Performed By: #### 2 4362-6 ####DERRICK Hall ([id number])[facility] ([facility])[address]141 [place] [address] Urea nitrogen [Mass/Vol] 18 mg/dL Normal 6-23 [facility] Comment on above: Performed By: #### 2 4362-6 ####DERRICK Hall ([id number])[facility] ([facility])[address] [place] [address] XR CHEST 1 VIEWon 03-26-2025 XR CHEST 1 VIEW Normal [facility] CBC W Auto Differential pane l (Bld)on 03-25-2025 Basophils (Bld) [#/Vol] 0.03 x10*3/uL Normal 0.00-0.10 [facility] Comment on above: Performed By: #### 5 7021-8 ####DERRICK Hall ([id number])[facility] ([facility])[address] [place] [address] Basophils/100 WBC (Bld) 0.3 % Normal 0.0-2.0 [facility] Comment on above: Performed By: #### 5 7021-8 ####DERRICK Hall ([id number])[facility] ([facility])[address] [place] [address] Eosinophils (Bld) [#/Vol] 0.11 x10*3/uL Normal 0.00-0.70 [facility] Comment on above: Performed By: #### 5 7021-8 ####DERRICK Hall ([id number])[facility] ([facility])[address] [place] [address] Eosinophils/100 WBC (Bld) 1.3 % Normal 0.0-6.0 [facility] Comment on above: Performed By: #### 5 7021-8 ####DERRICK Hall ([id number])[facility] ([facility])[address] [place] [address] Erythrocyte distribution width (RBC) [Ratio] 13.2 % Normal 11.5-14.5 [facility] Comment on above: Performed By: #### 5 7021-8 ####DERRICK Hall ([id number])[facility] ([facility])[address] [place] [address] Hematocrit (Bld) [Volume fraction] 36.7 % Normal 36.0-46.0 [facility] Comment on above: Performed By: #### 5 7021-8 ####DERRICK Hall ([id number])[facility] ([facility])[address] [place] [address] Hemoglobin (Bld) [Mass/Vol] 12.1 g/dL Normal 12.0-16.0 [facility] Comment on above: Performed By: #### 5 7021-8 ####DERRICK Hall ([id number])[facility] ([facility])[address] [place] [address] Immature granulocytes (Bld) [#/Vol] 0.05 x10*3/uL Normal 0.00-0.70 [facility] Comment on above: Performed By: #### 5 7021-8 ####DERRICK Hall ([id number])[facility] ([facility])[address] [place] [address] Immature granulocytes/100 WBC (Bld) 0.6 % Normal 0.0-0.9 [facility] Comment on above: Result Comment: Arlen ture Granulocyte Count (IG) includes promyelocytes, myelocytes and metamyelocytes but does not include bands. Percent differential counts (%) should be interpreted in the context of the absolute cell counts (cells/UL). Performed By: #### 5 7021-8 ####DERRICK Hall ([id number])[facility] ([facility])[address] [place] [address] Lymphocytes (Bld) [#/Vol] 0.84 x10*3/uL Low 1.20-4.80 [facility] Comment on above: Performed By: #### 5 7021-8 ####DERRICK Hall ([id number])[facility] ([facility])[address] [place] [address] Lymphocytes/100 WBC (Bld) 9.6 % Normal 13.0-44.0 [facility] Comment on above: Performed By: #### 5 7021-8 ####DERRICK Hall ([id number])[facility] ([facility])[address] [place] [address] MCH (RBC) [Entitic mass] 31.3 pg Normal 26.0-34.0 [facility] Comment on above: Performed By: #### 5 7021-8 ####DERRICK Hall ([id number])[facility] ([facility])[address]10 [place] [address] MCHC (RBC) [Mass/Vol] 33.0 g/dL Normal 32.0-36.0 [facility] Comment on above: Performed By: #### 5 7021-8 ####DERRICK Hall ([id number])[facility] ([facility])[address] [place] [address] MCV (RBC) [Entitic vol] 95 fL Normal 80-100 [facility] Comment on above: Performed By: #### 5 7021-8 ####DERRICK Hall ([id number])[facility] ([facility])[address] [place] [address] Monocytes (Bld) [#/Vol] 0.77 x10*3/uL Normal 0.10-1.00 [facility] Comment on above: Performed By: #### 5 7021-8 ####DERRICK Hall ([id number])[facility] ([facility])[address] [place] [address] Monocytes/100 WBC (Bld) 8.8 % Normal 2.0-10.0 [facility] Comment on above: Performed By: #### 5 7021-8 ####DERRICK Hall ([id number])[facility] ([facility])[address]56 [place] [address] Neutrophils (Bld) [#/Vol] 6.98 x10*3/uL Normal 1.20-7.70 [facility] Comment on above: Result Comment: Perc ent differential counts (%) should be interpreted in the context of the absolute cell counts (cells/uL). Performed By: #### 5 7021-8 ####DERRICK Hlal ([id number])[facility] ([facility])[address] [place] [address] Neutrophils/100 WBC (Bld) 79.4 % Normal 40.0-80.0 [facility] Comment on above: Performed By: #### 5 7021-8 ####DERRICK Hall ([id number])[facility] ([facility])[address]33 [place] [address] Nucleated RBC/100 WBC (Bld) [Ratio] 0.0 /100 WBCs Normal 0.0-0.0 [facility] Comment on above: Performed By: #### 5 7021-8 ####DERRICK Hall ([id number])[facility] ([facility])[address]04 [place] [address] Platelets (Bld) [#/Vol] 171 x10*3/uL Normal 150-450 [facility] Comment on above: Performed By: #### 5 7021-8 ####DERRICK Hall ([id number])[facility] ([facility])[address]28 [place] [address] RBC (Bld) [#/Vol] 3.86 x10*6/uL Low 4.00-5.20 [facility] Comment on above: Performed By: #### 5 7021-8 ####DERRICK Hall ([id number])[facility] ([facility])[address]110 [place] [address] WBC (Bld) [#/Vol] 8.8 x10*3/uL Normal 4.4-11.3 [facility] Comment on above: Performed By: #### 5 7021-8 ####DERRICK Hall ([id number])[facility] ([facility])[address]34 [place] [address] ECG 12-LEADon 07-17-2025 ECG 12-LEAD Ventricular Rate 94 Atrial Rate 105 QRS Duration 132 Q-T Interval 392 QTC Calculation(Bazett) 490 R [place] 112 T [place] 105 QRS Count 15 Q Onset 220 T Offset 416 QTC Fredericia 455 Diagnosis Atrial fibrillation Right bundle branch block Abnormal ECG When compared with ECG of 24-MAR-2025 08:45, Atrial fibrillation has replaced Sinus rhythm Nonspecific T wave abnormality, improved in Inferior leads Nonspecific T wave abnormality has replaced inverted T waves in Anterior leads Confirmed by Roc Ling ([id number]) on 03/29/2025 2:14:27 PM Normal [facility] Glucose Test strip manual (B ld) [Mass/Vol]on 03-25-2025 Glucose [Mass/Vol] 192 mg/dL High [address] [place] [address] Comment on above: Performed By: #### 2 341-6 ####DERRICK Hall ([id number])[facility] ([facility])[address] [place] [address] Glucose [Mass/Vol] 188 mg/dL High [address] [place] [address] Comment on above: Performed By: #### 2 341-6 ####DERRICK Hall ([id number])[facility] ([facility])[address]84 [place] [address] Glucose [Mass/Vol] 198 mg/dL High [address] [place] [address] Comment on above: Performed By: #### 2 341-6 ####DERRICK Hall ([id number])[facility] ([facility])[address]87 [place] [address] Glucose [Mass/Vol] 162 mg/dL High [address] [place] [address] Comment on above: Result Comment: RN N OTIFIED Performed By: #### 2 341-6 ####DERRICK Hall ([id number])[facility] ([facility])[address]28 [place] [address] Glucose [Mass/Vol] 129 mg/dL High [address] [place] [address] Comment on above: Result Comment: RN N OTIFIED Performed By: #### 2 341-6 ####DERRICK Hall ([id number])[facility] ([facility])[address]689 [place] [address] Glucose [Mass/Vol] 137 mg/dL High 74-99 [facility] Comment on above: Performed By: #### 2 341-6 ####DERRICK Hall ([id number])[facility] ([facility])[address]15 [place] [address] Glucose [Mass/Vol] 155 mg/dL High 74-99 [facility] Comment on above: Performed By: #### 2 341-6 ####DERRICK Hall ([id number])[facility] ([facility])[address]167 [place] [address] Magnesiumon 03-25-2025 Magnesium [Mass/Vol] 1.76 mg/dL Normal 1.60-2.40 [facility] Comment on above: Performed By: #### 1 9123-9 ####DERRICK Hall ([id number])[facility] ([facility])[address] [place] [address] Magnesium [Mass/Vol] 2.18 mg/dL Normal 1.60-2.40 [facility] Comment on above: Performed By: #### 1 9123-9 ####DERRICK Hall ([id number])[facility] ([facility])[address] [place] [address] Renal function 2000 panelon 03-25-2025 Albumin BCP dye [Mass/Vol] 2.8 g/dL Low 3.4-5.0 [facility] Comment on above: Performed By: #### 2 4362-6 ####DERRICK Hall ([id number])[facility] ([facility])[address]135 [place] [address] Anion gap [Moles/Vol] 14 mmol/L Normal 10-20 [facility] Comment on above: Performed By: #### 2 4362-6 ####DERRICK Hall ([id number])[facility] ([facility])[address] [place] [address] Calcium [Mass/Vol] 8.9 mg/dL Normal 8.6-10.6 [facility] Comment on above: Performed By: #### 2 4362-6 ####DERRICK Hall ([id number])[facility] ([facility])[address]990 [place] [address] Chloride [Moles/Vol] 104 mmol/L Normal 98-107 [facility] Comment on above: Performed By: #### 2 4362-6 ####DERRICK Hall ([id number])[facility] ([facility])[address]104 [place] [address] CO2 [Moles/Vol] 25 mmol/L Normal 21-32 [facility] Comment on above: Performed By: #### 2 4362-6 ####DERRICK Hall ([id number])[facility] ([facility])[address]498 [place] [address] Creatinine [Mass/Vol] 0.65 mg/dL Normal 0.50-1.05 [facility] Comment on above: Performed By: #### 2 4362-6 ####DERRICK Hall ([id number])[facility] ([facility])[address]82 [place] [address] GFR/1.73 sq M.predicted MDRD (S/P/Bld) [Vol rate/Area] mL/min/{1.73_m2} Normal >60 [facility] Comment on above: Result Comment: Calc ulations of estimated GFR are performed using the 2020 CKD-EPI Study Refit equation without the race variable for the IDMS-Traceable creatinine methods.https://jasn.asnjournals.org/content/early/ N.3497815996 Performed By: #### 2 4362-6 ####DERRICK Hall ([id number])[facility] ([facility])[address]84 [place] [address] Glucose [Mass/Vol] 200 mg/dL High 74-99 [facility] Comment on above: Performed By: #### 2 4362-6 ####DERRICK Hall ([id number])[facility] ([facility])[address]856 [place] [address] Phosphate [Mass/Vol] 2.6 mg/dL Normal 2.5-4.9 [facility] Comment on above: Performed By: #### 2 4362-6 ####DERRICK Hall ([id number])[facility] ([facility])[address]75 [place] [address] Potassium [Moles/Vol] 3.5 mmol/L Normal 3.5-5.3 [facility] Comment on above: Performed By: #### 2 4362-6 ####DERRICK Hall ([id number])[facility] ([facility])[address]60 [place] [address] Sodium [Moles/Vol] 139 mmol/L Normal 136-145 [facility] Comment on above: Performed By: #### 2 4362-6 ####DERRICK Hall ([id number])[facility] ([facility])[address]34 [place] [address] Urea nitrogen [Mass/Vol] 17 mg/dL Normal 6-23 [facility] Comment on above: Performed By: #### 2 4362-6 ####DERRICK Hall ([id number])[facility] ([facility])[address] [place] [address] Albumin BCP dye [Mass/Vol] 2.8 g/dL Low 3.4-5.0 [facility] Comment on above: Performed By: #### 2 4362-6 ####DERRICK BRAR L (84054)[facility] ([facility])[address]210 [place] [address] Anion gap [Moles/Vol] 15 mmol/L Normal 10-20 [facility] Comment on above: Performed By: #### 2 4362-6 ####DERRICK BRAR L (74501)[facility] ([facility])[address]403 [place] [address] Calcium [Mass/Vol] 9.0 mg/dL Normal 8.6-10.6 [facility] Comment on above: Performed By: #### 2 4362-6 ####DERRICK Hall (06606)[facility] ([facility])[address] [place] [address] Chloride [Moles/Vol] 106 mmol/L Normal 98-107 [facility] Comment on above: Performed By: #### 2 4362-6 ####DERRICK Hall ([id number])[facility] ([facility])[address]462 [place] [address] CO2 [Moles/Vol] 23 mmol/L Normal 21-32 [facility] Comment on above: Performed By: #### 2 4362-6 ####DERRICK Hall ([id number])[facility] ([facility])[address]92 [place] [address] Creatinine [Mass/Vol] 0.66 mg/dL Normal 0.50-1.05 [facility] Comment on above: Performed By: #### 2 4362-6 ####DERRICK Hall ([id number])[facility] ([facility])[address] [place] [address] GFR/1.73 sq M.predicted MDRD (S/P/Bld) [Vol rate/Area] mL/min/{1.73_m2} Normal >60 [facility] Comment on above: Result Comment: Calc ulations of estimated GFR are performed using the 2020 CKD-EPI Study Refit equation without the race variable for the IDMS-Traceable creatinine methods.https://jasn.asnjournals.org/content/early/ N.8353134259 Performed By: #### 2 4362-6 ####DERRICK Hall ([id number])[facility] ([facility])[address]63 [place] [address] Glucose [Mass/Vol] 135 mg/dL High 74-99 [facility] Comment on above: Performed By: #### 2 4362-6 ####DERRICK ALVESTZER L ([id number])[facility] ([facility])[address]606 [place] [address] Phosphate [Mass/Vol] 3.5 mg/dL Normal 2.5-4.9 [facility] Comment on above: Result Comment: MILD HEMOLYSIS DETECTED. The result may be falsely elevated due to hemolysis or other interferents. Clinical correlation is recommended. Repeat testing may be considered. Performed By: #### 2 4362-6 ####DERRICK ALVESTZER L ([id number])[facility] ([facility])[address] [place] [address] Potassium [Moles/Vol] 4.3 mmol/L Normal 3.5-5.3 [facility] Comment on above: Result Comment: MILD HEMOLYSIS DETECTED. The result may be falsely elevated due to hemolysis or other interferents. Clinical correlation is recommended. Repeat testing may be considered. Performed By: #### 2 4362-6 ####DERRICK ALVESTZER L ([id number])[facility] ([facility])[address] [place] [address] Sodium [Moles/Vol] 140 mmol/L Normal 136-145 [facility] Comment on above: Performed By: #### 2 4362-6 ####DERRICK SIMER L ([id number])[facility] ([facility])[address] [place] [address] Urea nitrogen [Mass/Vol] 20 mg/dL Normal 6-23 [facility] Comment on above: Performed By: #### 2 4362-6 ####DERRICK CHOUDHARYMOTZER L ([id number])[facility] ([facility])[address] [place] [address] XR CHEST 1 VIEWon 03-25-2025 XR CHEST 1 VIEW Normal [facility] BRONCHOSCOPYon 03-24-2025 BRONCHOSCOPY Normal [facility] CBC W Auto Differential pane l (Bld)on 03-24-2025 Basophils (Bld) [#/Vol] 0.02 x10*3/uL Normal 0.00-0.10 [facility] Comment on above: Performed By: #### 5 7021-8 ####DERRICK Hall ([id number])[facility] ([facility])[address] [place] [address] Basophils/100 WBC (Bld) 0.2 % Normal 0.0-2.0 [facility] Comment on above: Performed By: #### 5 7021-8 ####DERRICK Hall ([id number])[facility] ([facility])[address] [place] [address] Eosinophils (Bld) [#/Vol] 0.20 x10*3/uL Normal 0.00-0.70 [facility] Comment on above: Performed By: #### 5 7021-8 ####DERRICK Hall ([id number])[facility] ([facility])[address] [place] [address] Eosinophils/100 WBC (Bld) 2.3 % Normal 0.0-6.0 [facility] Comment on above: Performed By: #### 5 7021-8 ####DERRICK Hall ([id number])[facility] ([facility])[address] [place] [address] Erythrocyte distribution width (RBC) [Ratio] 13.7 % Normal 11.5-14.5 [facility] Comment on above: Performed By: #### 5 7021-8 ####DERRICK Hall ([id number])[facility] ([facility])[address] [place] [address] Hematocrit (Bld) [Volume fraction] 36.2 % Normal 36.0-46.0 [facility] Comment on above: Performed By: #### 5 7021-8 ####DERRICK Hall ([id number])[facility] ([facility])[address] [place] [address] Hemoglobin (Bld) [Mass/Vol] 12.0 g/dL Normal 12.0-16.0 [facility] Comment on above: Performed By: #### 5 7021-8 ####DERRICK Hall ([id number])[facility] ([facility])[address] [place] [address] Immature granulocytes (Bld) [#/Vol] 0.02 x10*3/uL Normal 0.00-0.70 [facility] Comment on above: Performed By: #### 5 7021-8 ####DERRICK Hall ([id number])[facility] ([facility])[address] [place] [address] Immature granulocytes/100 WBC (Bld) 0.2 % Normal 0.0-0.9 [facility] Comment on above: Result Comment: Arlen ture Granulocyte Count (IG) includes promyelocytes, myelocytes and metamyelocytes but does not include bands. Percent differential counts (%) should be interpreted in the context of the absolute cell counts (cells/UL). Performed By: #### 5 7021-8 ####DERRICK Hall ([id number])[facility] ([facility])[address] [place] [address] Lymphocytes (Bld) [#/Vol] 1.02 x10*3/uL Low 1.20-4.80 [facility] Comment on above: Performed By: #### 5 7021-8 ####DERRICK Hall ([id number])[facility] ([facility])[address] [place] [address] Lymphocytes/100 WBC (Bld) 11.9 % Normal 13.0-44.0 [facility] Comment on above: Performed By: #### 5 7021-8 ####DERRICK Hall ([id number])[facility] ([facility])[address] [place] [address] MCH (RBC) [Entitic mass] 32.0 pg Normal 26.0-34.0 [facility] Comment on above: Performed By: #### 5 7021-8 ####DERRICK BRAR L ([id number])[facility] ([facility])[address] [place] [address] MCHC (RBC) [Mass/Vol] 33.1 g/dL Normal 32.0-36.0 [facility] Comment on above: Performed By: #### 5 7021-8 ####DERRICK Hall ([id number])[facility] ([facility])[address] [place] [address] MCV (RBC) [Entitic vol] 97 fL Normal 80-100 [facility] Comment on above: Performed By: #### 5 7021-8 ####DERRICK Hall ([id number])[facility] ([facility])[address] [place] [address] Monocytes (Bld) [#/Vol] 0.66 x10*3/uL Normal 0.10-1.00 [facility] Comment on above: Performed By: #### 5 7021-8 ####DERRICK Hall ([id number])[facility] ([facility])[address] [place] [address] Monocytes/100 WBC (Bld) 7.7 % Normal 2.0-10.0 [facility] Comment on above: Performed By: #### 5 7021-8 ####DERRICK Hall ([id number])[facility] ([facility])[address] [place] [address] Neutrophils (Bld) [#/Vol] 6.67 x10*3/uL Normal 1.20-7.70 [facility] Comment on above: Result Comment: Perc ent differential counts (%) should be interpreted in the context of the absolute cell counts (cells/uL). Performed By: #### 5 7021-8 ####DERRICK Hall ([id number])[facility] ([facility])[address] [place] [address] Neutrophils/100 WBC (Bld) 77.7 % Normal 40.0-80.0 [facility] Comment on above: Performed By: #### 5 7021-8 ####DERRICK Hall ([id number])[facility] ([facility])[address] [place] [address] Nucleated RBC/100 WBC (Bld) [Ratio] 0.0 /100 WBCs Normal 0.0-0.0 [facility] Comment on above: Performed By: #### 5 7021-8 ####DERRICK Hall ([id number])[facility] ([facility])[address] [place] [address] Platelets (Bld) [#/Vol] 161 x10*3/uL Normal 150-450 [facility] Comment on above: Performed By: #### 5 7021-8 ####DERRICK Hall ([id number])[facility] ([facility])[address] [place] [address] RBC (Bld) [#/Vol] 3.75 x10*6/uL Low 4.00-5.20 [facility] Comment on above: Performed By: #### 5 7021-8 ####DERRICK Hall ([id number])[facility] ([facility])[address] [place] [address] WBC (Bld) [#/Vol] 8.6 x10*3/uL Normal 4.4-11.3 [facility] Comment on above: Performed By: #### 5 7021-8 ####DERRICK Hall ([id number])[facility] ([facility])[address] [place] [address] Cancer related large scale g antwan targeted mutation analysis Molgen Doc (Bld/Tiss)on 03-24-2025 ELECTRONICALLY SIGNED BY Nael Ramirez MD PhD [facility] Comment on above: Performed By: #### 7 3977-1 ####NAEL RAMIREZ ([id number]) [facility] ([facility])[address] [place] [address] FOCUSED SOLID TUMOR DNA/RNA RESULTS SEE COMMENT [facility] Comment on above: Result Comment: Spec imen: Supernatant, [id number] Tumor Content: 30%MICROSATELLITE STATUS: Microsatellite Instability-High (MSI-H) is NOT DETECTED.DISEASE ASSOCIATED GENOMIC FINDINGS: CDKN2A p.E120* ([id number] c.358G>T)KRAS amplificationKRAS p.G12C ([id number] c.34G>T)INTERPRETATION AND POTENTIAL THERAPEUTIC OPTIONS:KRAS p.S33NXVS RECOMMENDATIONS (Advanced Non Small Cell Lung Cancer):adagrasib (Subsequent)sotorasib (Subsequent)DISEASE RELEVANT ALTERATIONS NOT DETECTED: Negative for ALK fusion.Negative for BRAF V600E.Negative for EGFR sensitizing mutation.Negative for ERBB2 activating mutationNegative for MET exon 14 skipping mutation.Negative for NTRK fusion.Negative for RET fusion.Negative for ROS1 fusion.DISCLAIMER: This assay is designed to detect targeted clinically-relevant single nucleotide variants, insertion and deletions (<30bp), whole gene high copy number amplifications, and translocations in a select group of genes. This assay does not distinguish between somatic and germline alterations in analyzed regions. A negative result (mutation not identified) does not rule out the presence of a mutation below the limit of detection of this assay due to low neoplastic cell content, tumor heterogeneity, or the presence of additional mutations in the listed genes which are outside of the target regions in this assay. General population polymorphisms, promoter, synonymous and intronic variants (with the exception of splice variants) are not generally included in this report. The MSI-H/SARATH designation is based on analysis of up to 10 mononucleotide repeat loci and not based on the 5 or 7 MSI described in current clinical practice guidelines. The threshold for MSI-H/SARATH was determined by analytical concordance to dMMR IHC assays using mainly colorectal and uterine FFPE tissue. The clinical validity of the qualitative MSI designation has not been established.Identification or absence of cancer-associated mutations does not necessarily indicate a response to therapy. Decisions on patient care and treatment must be based on the independent medical judgment of the treating physician, taking into account all applicable information concerning the patient's condition such as clinical and histopathologic findings, other laboratory findings, and patient preferences. This report includes information from public sources, including scientific and medical literature to better characterize the significance of alterations detected.This laboratory developed test was developed and its analytical performance characteristics have been determined by [facility]. This test has not been cleared or approved by the FDA; however, the FDA has determined that such approval is not necessary. The [facility] is certified under the Clinical Laboratory Improvement Amendments of 1988 (CLIA-88) as qualified to perform high complexity testing.PANEL GENE LIST:Hotspot Mutations (snv, indels <30bp): AKT1, ALK, APC, ARAF, B2M, BRAF, CCND1, CDK4, CDKN2A, CREBBP, CTNNB1, EGFR, EP300, ERBB2, ERBB3, ERBB4, ESR1, FBXW7, FGFR2, FGFR3, GNA11, GNAQ, H3F3A, XHHP9W9V, HRAS, IDH1, IDH2, JAK1, JAK2, JAK3, KEAP1, KIT, KRAS, MAP2K1, MAP2K2, MET, MTOR, NFE2L2, NRAS, PDGFRA, PIK3CA, POLE, PTEN, RET, ROS1, SMAD4, STK11, SMO, TP53, U2AF1.Copy Number Variants (gain): ALK, AR, BRAF, CCND1, CDK4, CDK6, EGFR, ERBB2, FGFR1, FGFR2, FGFR3, FGFR4, KIT, KRAS, MET, MYC, MYCN, PDGFRA, PIK3CA.Fusions (local truck driver genes): ALK, BRAF, EGFR, FGFR1, FGFR2, FGFR3, MET, NTRK1, NTRK2, NTRK3, RET, ROS1, TMPRSS2.MSI Status Markers: mononucleotide repeat loci.Not all exons of all genes are sequenced. Genome assembly (hg19) was used for alignment and variant calling. Performed By: #### 7 3977-1 ####NAEL RAMIREZ ([id number]) [facility] ([facility])[address] [place] [address] ECG 12-LEADon 03-24-2025 ECG 12-LEAD Ventricular Rate 86 Atrial Rate 86 P-R Interval 184 QRS Duration 124 Q-T Interval 382 QTC Calculation(Bazett) 457 P [place] 43 R [place] 103 T [place] 121 QRS Count 14 Q Onset 221 P Onset 129 P Offset 191 T Offset 412 QTC Fredericia 431 Diagnosis Normal sinus rhythm with sinus arrhythmia Right bundle branch block Abnormal ECG No previous ECGs available Confirmed by Roc Ling ([id number]) on 03/29/2025 2:10:30 PM Normal [facility] Glucose Test strip manual (B ld) [Mass/Vol]on 03-24-2025 Glucose [Mass/Vol] 144 mg/dL High 74-99 [facility] Comment on above: Performed By: #### 2 341-6 ####DERRICK Hall ([id number])[facility] ([facility])[address] [place] [address] Glucose [Mass/Vol] 129 mg/dL High 74-99 [facility] Comment on above: Performed By: #### 2 341-6 ####DERRICK Hall ([id number])[facility] ([facility])[address] [place] [address] Glucose [Mass/Vol] 98 mg/dL Normal 74-99 [facility] Comment on above: Result Comment: RN N OTIFIED Performed By: #### 2 341-6 ####DERRICK Hall ([id number])[facility] ([facility])[address] [place] [address] Glucose [Mass/Vol] 128 mg/dL High 74-99 [facility] Comment on above: Result Comment: CHARLES Jara OTIFIED Performed By: #### 2 341-6 ####DERRICK Hall ([id number])[facility] ([facility])[address] [place] [address] Glucose [Mass/Vol] 122 mg/dL High 74-99 [facility] Comment on above: Performed By: #### 2 341-6 ####DERRICK Hall ([id number])[facility] ([facility])[address] [place] [address] Magnesiumon 03-24-2025 Magnesium [Mass/Vol] 1.89 mg/dL Normal 1.60-2.40 [facility] Comment on above: Performed By: #### 1 9123-9 ####DERRICK Hall ([id number])[facility] ([facility])[address] [place] [address] Non-operator command support systems cytology studyon Non-gynecological cytology method study Normal [facility] Renal function 2000 panelon 03-24-2025 Albumin BCP dye [Mass/Vol] 2.8 g/dL Low 3.4-5.0 [facility] Comment on above: Performed By: #### 2 4362-6 ####DERRICK Hall ([id number])[facility] ([facility])[address] [place] [address] Anion gap [Moles/Vol] 11 mmol/L Normal 10-20 [facility] Comment on above: Performed By: #### 2 4362-6 ####DERRICK Hall ([id number])[facility] ([facility])[address] [place] [address] Calcium [Mass/Vol] 8.5 mg/dL Low 8.6-10.6 [facility] Comment on above: Performed By: #### 2 4362-6 ####DERRICK Hall ([id number])[facility] ([facility])[address] [place] [address] Chloride [Moles/Vol] 110 mmol/L High 98-107 [facility] Comment on above: Performed By: #### 2 4362-6 ####DERRICK Hall ([id number])[facility] ([facility])[address] [place] [address] CO2 [Moles/Vol] 24 mmol/L Normal 21-32 [facility] Comment on above: Performed By: #### 2 4362-6 ####DERRICK Hall ([id number])[facility] ([facility])[address] [place] [address] Creatinine [Mass/Vol] 0.63 mg/dL Normal 0.50-1.05 [facility] Comment on above: Performed By: #### 2 4362-6 ####DERRICK BRAR L ([id number])[facility] ([facility])[address] [place] [address] GFR/1.73 sq M.predicted MDRD (S/P/Bld) [Vol rate/Area] mL/min/{1.73_m2} Normal >60 [facility] Comment on above: Result Comment: Calc ulations of estimated GFR are performed using the 2020 CKD-EPI Study Refit equation without the race variable for the IDMS-Traceable creatinine methods.https://jasn.asnjournals.org/content/early// N.2143125909 Performed By: #### 2 4362-6 ####DERRICK Hall ([id number])[facility] ([facility])[address] [place] [address] Glucose [Mass/Vol] 104 mg/dL High 74-99 [facility] Comment on above: Performed By: #### 2 4362-6 ####DERRICK Hall ([id number])[facility] ([facility])[address] [place] [address] Phosphate [Mass/Vol] 2.7 mg/dL Normal 2.5-4.9 [facility] Comment on above: Performed By: #### 2 4362-6 ####DERRICK Hall ([id number])[facility] ([facility])[address] [place] [address] Potassium [Moles/Vol] 4.0 mmol/L Normal 3.5-5.3 [facility] Comment on above: Performed By: #### 2 4362-6 ####DERRICK Hall ([id number])[facility] ([facility])[address] [place] [address] Sodium [Moles/Vol] 141 mmol/L Normal 136-145 [facility] Comment on above: Performed By: #### 2 4362-6 ####DERRICK Hall ([id number])[facility] ([facility])[address] [place] [address] Urea nitrogen [Mass/Vol] 18 mg/dL Normal 6-23 [facility] Comment on above: Performed By: #### 2 4362-6 ####DERRICK Hall ([id number])[facility] ([facility])[address] [place] [address] Surgical pathology studyon 0 - Surgical pathology study Normal [facility] Troponin I.cardiac panelon 0 - Tropinin I.cardiac panel High sensitivity method 4 ng/L Normal 0-34 [facility] Comment on above: Order Comment: Less than 99th percentile of normal range cutoff-Female and children under 18 years old <35 ng/L; Male <54 ng/L: NegativeRepeat testing should be performed if clinically indicated.Female and children under 18 years old 35-120 ng/L; Male 54-120 ng/L:Consistent with possible cardiac damage and possible increased clinicalrisk. Serial measurements may help to assess extent of myocardial damage.>120 ng/L: Consistent with cardiac damage, increased clinical risk andmyocardial infarction. Serial measurements may help assess extent ofmyocardial damage.NOTE: Children less than 1 year old may have higher baseline troponinlevels and results should be interpreted in conjunction with the overallclinical context.NOTE: Troponin I testing is performed using a differenttesting methodology at [facility]. Direct result comparisons should onlybe made within the same method. Performed By: #### 8 9577-1 ####DERRICK Hall ([id number])[facility] ([facility])[address] [place] [id number] Tropinin I.cardiac panel High sensitivity method 4 ng/L Normal 0-34 [facility] Comment on above: Order Comment: Less than 99th percentile of normal range cutoff-Female and children under 18 years old <35 ng/L; Male <54 ng/L: NegativeRepeat testing should be performed if clinically indicated.Female and children under 18 years old 35-120 ng/L; Male 54-120 ng/L:Consistent with possible cardiac damage and possible increased clinicalrisk. Serial measurements may help to assess extent of myocardial damage.>120 ng/L: Consistent with cardiac damage, increased clinical risk andmyocardial infarction. Serial measurements may help assess extent ofmyocardial damage.NOTE: Children less than 1 year old may have higher baseline troponinlevels and results should be interpreted in conjunction with the overallclinical context.NOTE: Troponin I testing is performed using a differenttesting methodology at [facility] than [facility]. Direct result comparisons should onlybe made within the same method. Performed By: #### 8 9577-1 ####DERRICK Hall ([id number])[facility] ([facility])[address] [place] [address] XR CHEST 1 VIEWon 03-24-2025 XR CHEST 1 VIEW Normal [facility] XR CHEST 1 VIEW Normal [facility] CBC W Auto Differential pane l (Bld)on 03-23-2025 Basophils (Bld) [#/Vol] 0.03 x10*3/uL Normal 0.00-0.10 [facility] Comment on above: Performed By: #### 5 7021-8 ####DERRICK Hall ([id number])[facility] ([facility])[address] [place] [address] Basophils/100 WBC (Bld) 0.2 % Normal 0.0-2.0 [facility] Comment on above: Performed By: #### 5 7021-8 ####DERRICK Hall ([id number])[facility] ([facility])[address] [place] [address] Eosinophils (Bld) [#/Vol] 0.08 x10*3/uL Normal 0.00-0.70 [facility] Comment on above: Performed By: #### 5 7021-8 ####DERRICK Hall ([id number])[facility] ([facility])[address] [place] [address] Eosinophils/100 WBC (Bld) 0.6 % Normal 0.0-6.0 [facility] Comment on above: Performed By: #### 5 7021-8 ####DERRICK Hall ([id number])[facility] ([facility])[address] [place] [address] Erythrocyte distribution width (RBC) [Ratio] 13.5 % Normal 11.5-14.5 [facility] Comment on above: Performed By: #### 5 7021-8 ####DERRICK Hall ([id number])[facility] ([facility])[address] [place] [address] Hematocrit (Bld) [Volume fraction] 39.3 % Normal 36.0-46.0 [facility] Comment on above: Performed By: #### 5 7021-8 ####DERRICK Hall ([id number])[facility] ([facility])[address] [place] [address] Hemoglobin (Bld) [Mass/Vol] 13.1 g/dL Normal 12.0-16.0 [facility] Comment on above: Performed By: #### 5 7021-8 ####DERRICK Hall ([id number])[facility] ([facility])[address] [place] [address] Immature granulocytes (Bld) [#/Vol] 0.07 x10*3/uL Normal 0.00-0.70 [facility] Comment on above: Performed By: #### 5 7021-8 ####DERRICK Hall ([id number])[facility] ([facility])[address] [place] [address] Immature granulocytes/100 WBC (Bld) 0.6 % Normal 0.0-0.9 [facility] Comment on above: Result Comment: Arlen ture Granulocyte Count (IG) includes promyelocytes, myelocytes and metamyelocytes but does not include bands. Percent differential counts (%) should be interpreted in the context of the absolute cell counts (cells/UL). Performed By: #### 5 7021-8 ####DERRICK Hall ([id number])[facility] ([facility])[address] [place] [address] Lymphocytes (Bld) [#/Vol] 1.43 x10*3/uL Normal 1.20-4.80 [facility] Comment on above: Performed By: #### 5 7021-8 ####DERRICK Hall ([id number])[facility] ([facility])[address] [place] [address] Lymphocytes/100 WBC (Bld) 11.4 % Normal 13.0-44.0 [facility] Comment on above: Performed By: #### 5 7021-8 ####DERRICK Hall ([id number])[facility] ([facility])[address] [place] [address] MCH (RBC) [Entitic mass] 31.6 pg Normal 26.0-34.0 [facility] Comment on above: Performed By: #### 5 7021-8 ####DERRICK Hall ([id number])[facility] ([facility])[address] [place] [address] MCHC (RBC) [Mass/Vol] 33.3 g/dL Normal 32.0-36.0 [facility] Comment on above: Performed By: #### 5 7021-8 ####DERRICK Hall ([id number])[facility] ([facility])[address] [place] [address] MCV (RBC) [Entitic vol] 95 fL Normal 80-100 [facility] Comment on above: Performed By: #### 5 7021-8 ####DERRICK Hall ([id number])[facility] ([facility])[address] [place] [address] Monocytes (Bld) [#/Vol] 0.76 x10*3/uL Normal 0.10-1.00 [facility] Comment on above: Performed By: #### 5 7021-8 ####DERRICK Hall ([id number])[facility] ([facility])[address] [place] [address] Monocytes/100 WBC (Bld) 6.0 % Normal 2.0-10.0 [facility] Comment on above: Performed By: #### 5 7021-8 ####DERRICK Hall ([id number])[facility] ([facility])[address] [place] [address] Neutrophils (Bld) [#/Vol] 10.22 x10*3/uL High 1.20-7.70 [facility] Comment on above: Result Comment: Perc ent differential counts (%) should be interpreted in the context of the absolute cell counts (cells/uL). Performed By: #### 5 7021-8 ####DERRICK Hall ([id number])[facility] ([facility])[address] [place] [address] Neutrophils/100 WBC (Bld) 81.2 % Normal 40.0-80.0 [facility] Comment on above: Performed By: #### 5 7021-8 ####DERRICK Hall ([id number])[facility] ([facility])[address] [place] [address] Nucleated RBC/100 WBC (Bld) [Ratio] 0.0 /100 WBCs Normal 0.0-0.0 [facility] Comment on above: Performed By: #### 5 7021-8 ####DERRICK Hall ([id number])[facility] [facility] [place] [address] Platelets (Bld) [#/Vol] 193 x10*3/uL Normal 150-450 [facility] Comment on above: Performed By: #### 5 7021-8 ####DERRICK Hall ([id number])[facility] ([facility])[address] [place] [address] RBC (Bld) [#/Vol] 4.15 x10*6/uL Normal 4.00-5.20 [facility] Comment on above: Performed By: #### 5 7021-8 ####DERRICK Hall ([id number])[facility] ([facility])[address] [place] [address] WBC (Bld) [#/Vol] 12.6 x10*3/uL High 4.4-11.3 [facility] Comment on above: Performed By: #### 5 7021-8 ####DERRICK Hall ([id number])[facility] ([facility])[address] [place] [address] ECG 12-LEADon 03-23-2025 ECG 12-LEAD Ventricular Rate 85 Atrial Rate 85 P-R Interval 142 QRS Duration 118 Q-T Interval 378 QTC Calculation(Bazett) 449 P [place] 27 R [place] 104 T [place] 102 QRS Count 14 Q Onset 221 P Onset 150 P Offset 192 T Offset 410 QTC Fredericia 424 Diagnosis Normal sinus rhythm with sinus arrhythmia Incomplete right bundle branch block Possible Right ventricular hypertrophy Septal infarct , age undetermined ST & T wave abnormality, consider anterior ischemia Abnormal ECG Confirmed by Roc Ling ([id number]) on 03/24/2025 10:28:48 AM Normal [facility] Gas and Carbon monoxide and Electrolytes panel (BldA)on 03-23-2025 Anion gap 4 (BldA) [Moles/Vol] 9 mmo/L Low 10-25 [facility] Comment on above: Performed By: #### 9 3685-6 ####DERRICK Hall ([id number])[facility] ([facility])[address] [place] [address] Base excess Calc (Bld) [Moles/Vol] -1.6000 mmol/L Normal -2.0-3.0 [facility] Comment on above: Performed By: #### 9 3685-6 ####DERRICK Hall ([id number])[facility] ([facility])[address] [place] [address] Calcium.ionized (BldA) [Moles/Vol] 1.29 mmol/L Normal 1.10-1.33 [facility] Comment on above: Performed By: #### 9 3685-6 ####DERRICK Hall ([id number])[facility] ([facility])[address] [place] [address] Chloride (BldA) [Moles/Vol] 105 mmol/L Normal 98-107 [facility] Comment on above: Performed By: #### 9 3685-6 ####DERRICK Hall ([id number])[facility] ([facility])[address] [place] [address] CO2 (Bld) [Partial pressure] 50 mm Hg High 38-42 [facility] Comment on above: Performed By: #### 9 3685-6 ####DERRICK Hall ([id number])[facility] ([facility])[address] [place] [address] Glucose [Mass/Vol] 133 mg/dL High 74-99 [facility] Comment on above: Performed By: #### 9 3685-6 ####DERRICK Hall ([id number])[facility] ([facility])[address] [place] [address] HCO3 (Bld) [Moles/Vol] 25.2 mmol/L Normal 22.0-26.0 [facility] Comment on above: Performed By: #### 9 3685-6 ####DERRICK Hall ([id number])[facility] ([facility])[address] [place] [address] Hematocrit Est (Bld) [Volume fraction] 40.0 % Normal 36.0-46.0 [facility] Comment on above: Performed By: #### 9 3685-6 ####DERRICK Hall ([id number])[facility] ([facility])[address] [place] [address] Hemoglobin (Bld) [Mass/Vol] 13.3 g/dL Normal 12.0-16.0 [facility] Comment on above: Performed By: #### 9 3685-6 ####DERRICK Hall ([id number])[facility] ([facility])[address] [place] [address] Inhaled oxygen concentration 80 % Normal [facility] Comment on above: Performed By: #### 9 3685-6 ####DERRICK Hall ([id number])[facility] ([facility])[address] [place] [address] Lactate (BldA) [Moles/Vol] 0.7 mmol/L Normal 0.4-2.0 [facility] Comment on above: Performed By: #### 9 3685-6 ####DERRICK Hall ([id number])[facility] ([facility])[address] [place] [address] Oxygen (Bld) [Partial pressure] 62 mm Hg Low 85-95 [facility] Comment on above: Performed By: #### 9 3685-6 ####DERRICK Hall ([id number])[facility] ([facility])[address] [place] [address] Oxyhemoglobin (BldA) [Mass fraction] 90.5 % Low 94.0-98.0 [facility] Comment on above: Performed By: #### 9 3685-6 ####DERRICK Hall ([id number])[facility] ([facility])[address] [place] [address] pH (Bld) 7.31 [pH] Low 7.38-7.42 [facility] Comment on above: Performed By: #### 9 3685-6 ####DERRICK Hall ([id number])[facility] ([facility])[address]385 [place] [address] Potassium (BldA) [Moles/Vol] 3.9 mmol/L Normal 3.5-5.3 [facility] Comment on above: Performed By: #### 9 3685-6 ####DERRICK Hall ([id number])[facility] ([facility])[address]361 [place] [address] Sodium (BldA) [Moles/Vol] 135 mmol/L Low 136-145 [facility] Comment on above: Performed By: #### 9 3685-6 ####DERRICK Hall ([id number])[facility] ([facility])[address] [place] [address] Glucose Test strip manual (B ld) [Mass/Vol]on 03-23-2025 Glucose [Mass/Vol] 113 mg/dL High 74-99 [facility] Comment on above: Performed By: #### 2 341-6 ####DERRICK Hall ([id number])[facility] ([facility])[address] [place] [address] Glucose [Mass/Vol] 119 mg/dL High 74-99 [facility] Comment on above: Performed By: #### 2 341-6 ####DERRICK Hall ([id number])[facility] ([facility])[address]35 [place] [address] Glucose [Mass/Vol] 113 mg/dL High 74-99 [facility] Comment on above: Performed By: #### 2 341-6 ####DERRICK Hall ([id number])[facility] ([facility])[address]47 [place] [address] Glucose [Mass/Vol] 113 mg/dL High 74-[address] [place] [address] Comment on above: Result Comment: CHARLES Jara OTIFIED Performed By: #### 2 341-6 ####DERRICK Hall ([id number])[facility] ([facility])[address]32 [place] [address] Glucose [Mass/Vol] 135 mg/dL High 74-99 [facility] Comment on above: Result Comment: CHARLES Jara OTIFIED Performed By: #### 2 341-6 ####DERRICK Hall ([id number])[facility] ([facility])[address] [place] [address] Glucose [Mass/Vol] 133 mg/dL High [address] [place] [address] Comment on above: Performed By: #### 2 341-6 ####DERRICK Hall ([id number])[facility] ([facility])[address] [place] [address] Magnesiumon 03-23-2025 Magnesium [Mass/Vol] 2.27 mg/dL Normal 1.60-2.40 [facility] Comment on above: Performed By: #### 1 9123-9 ####DERRICK Hall ([id number])[facility] ([facility])[address] [place] [address] Renal function 2000 panelon 03-23-2025 Albumin BCP dye [Mass/Vol] 3.2 g/dL Low 3.4-5.0 [facility] Comment on above: Performed By: #### 2 4362-6 ####DERRICK Hall ([id number])[facility] ([facility])[address] [place] [address] Anion gap [Moles/Vol] 12 mmol/L Normal 10-20 [facility] Comment on above: Performed By: #### 2 4362-6 ####DERRICK Hall ([id number])[facility] ([facility])[address]66 [place] [address] Calcium [Mass/Vol] 9.6 mg/dL Normal 8.6-10.6 [facility] Comment on above: Performed By: #### 2 4362-6 ####DERRICK Hall ([id number])[facility] ([facility])[address]24 [place] [address] Chloride [Moles/Vol] 107 mmol/L Normal 98-107 [facility] Comment on above: Performed By: #### 2 4362-6 ####DERRICK Hall ([id number])[facility] ([facility])[address]149 [place] [address] CO2 [Moles/Vol] 26 mmol/L Normal 21-32 [facility] Comment on above: Performed By: #### 2 4362-6 ####DERRICK Hall ([id number])[facility] ([facility])[address]187 [place] [address] Creatinine [Mass/Vol] 0.75 mg/dL Normal 0.50-1.05 [facility] Comment on above: Performed By: #### 2 4362-6 ####DERRICK BRAR L ([id number])[facility] ([facility])[address] [place] [address] Glomerular filtration rate/1.73 sq M.predicted 90 mL/min/1.73m*2 Normal >60 [facility] Comment on above: Result Comment: Calc ulations of estimated GFR are performed using the 2020 CKD-EPI Study Refit equation without the race variable for the IDMS-Traceable creatinine methods.https://jasn.asnjournals.org/content// N.6926370709 Performed By: #### 2 4362-6 ####DERRICK Hall ([id number])[facility] ([facility])[address]197 [place] [address] Glucose [Mass/Vol] 118 mg/dL High 74-99 [facility] Comment on above: Performed By: #### 2 4362-6 ####DERRICK Hall ([id number])[facility] ([facility])[address] [place] [address] Phosphate [Mass/Vol] 3.0 mg/dL Normal 2.5-4.9 [facility] Comment on above: Result Comment: MILD HEMOLYSIS DETECTED. The result may be falsely elevated due to hemolysis or other interferents. Clinical correlation is recommended. Repeat testing may be considered. Performed By: #### 2 4362-6 ####DERRICK Hall ([id number])[facility] ([facility])[address]709 [place] [address] Potassium [Moles/Vol] 4.5 mmol/L Normal 3.5-5.3 [facility] Comment on above: Result Comment: MILD HEMOLYSIS DETECTED. The result may be falsely elevated due to hemolysis or other interferents. Clinical correlation is recommended. Repeat testing may be considered. Performed By: #### 2 4362-6 ####DERRICK Hall ([id number])[facility] ([facility])[address]78 [place] [address] Sodium [Moles/Vol] 140 mmol/L Normal 136-145 [facility] Comment on above: Performed By: #### 2 4362-6 ####DERRICK Hall ([id number])[facility] ([facility])[address] [place] [address] Urea nitrogen [Mass/Vol] 19 mg/dL Normal 6-23 [facility] Comment on above: Performed By: #### 2 4362-6 ####DERRICK Hall ([id number])[facility] ([facility])[address] [place] [address] XR CHEST 1 VIEWon 03-23-2025 XR CHEST 1 VIEW Normal [facility] Bacteria identifiedon 2024 Bacteria identified Respiratory culture Nom (Unsp spec) Abnormal [facility] Comment on above: Performed By: #### 3 2355-0 ####DERRICK Hall ([id number])[facility] ([facility])[address]30 [facility] [place] [address] Bacteria identified Cx Nom (Bld) [facility] Comment on above: Performed By: #### 6 00-7 ####DERRICK Hall ([id number])[facility] ([facility])[address]22 [facility] [place] [address] Bacteria identified Cx Nom (Bld) [facility] Comment on above: Performed By: #### 6 00-7 ####DERRICK Hall ([id number])[facility] ([facility])[address] [place] [address], [place] [address] Blood type and Indirect anti body screen panel (Bld)on 03-22-2025 ABO group Nom (Bld) A Normal [facility] Comment on above: Performed By: #### 3 4532-2 ####DERRICK Hall ([id number])[facility] ([facility])[address] [place] [address] Blood group antibody screen Ql Negative [facility] Comment on above: Performed By: #### 3 4532-2 ####DERRICK Hall ([id number])[facility] ([facility])[address] [place] [address], [place] [address] D Ag Ql (Bld) Positive [facility] Comment on above: Performed By: #### 3 4532-2 ####DERRICK Hall ([id number])[facility] ([facility])[address] [place] [address], [place] [address] CBC W Auto Differential pane l (Bld)on 03-22-2025 Basophils (Bld) [#/Vol] 0.01 x10*3/uL Normal 0.00-0.10 [facility] Comment on above: Performed By: #### 5 7021-8 ####DERRICK Hall ([id number])[facility] ([facility])[address]25 [facility] [place] [address] Basophils/100 WBC (Bld) 0.1 % Normal 0.0-2.0 [facility] Comment on above: Performed By: #### 5 7021-8 ####DERRICK Hall ([id number])[facility] ([facility])[address] [place] [address] Eosinophils (Bld) [#/Vol] 0.00 x10*3/uL Normal 0.00-0.70 [facility] Comment on above: Performed By: #### 5 7021-8 ####DERRICK Hall ([id number])[facility] ([facility])[address] [place] [address] Eosinophils/100 WBC (Bld) 0.0 % Normal 0.0-6.0 [facility] Comment on above: Performed By: #### 5 7021-8 ####DERRICK Hall ([id number])[facility] ([facility])[address] [place] [address] Erythrocyte distribution width (RBC) [Ratio] 13.3 % Normal 11.5-14.5 [facility] Comment on above: Performed By: #### 5 7021-8 ####DERRICK Hall ([id number])[facility] ([facility])[address] [place] [address] Hematocrit (Bld) [Volume fraction] 44.2 % Normal 36.0-46.0 [facility] Comment on above: Performed By: #### 5 7021-8 ####DERRICK Hall ([id number])[facility] ([facility])[address] [place] [address] Hemoglobin (Bld) [Mass/Vol] 13.7 g/dL Normal 12.0-16.0 [facility] Comment on above: Performed By: #### 5 7021-8 ####DERRICK Hall ([id number])[facility] ([facility])[address] [place] [address] Immature granulocytes (Bld) [#/Vol] 0.14 x10*3/uL Normal 0.00-0.70 [facility] Comment on above: Performed By: #### 5 7021-8 ####DERRICK ALVESTZER L ([id number])[facility] ([facility])[address]37 [place] [address] Immature granulocytes/100 WBC (Bld) 0.9 % Normal 0.0-0.9 [facility] Comment on above: Result Comment: Arlen ture Granulocyte Count (IG) includes promyelocytes, myelocytes and metamyelocytes but does not include bands. Percent differential counts (%) should be interpreted in the context of the absolute cell counts (cells/UL). Performed By: #### 5 7021-8 ####DERRICK SIMER L ([id number])[facility] ([facility])[address]66 [place] [address] Lymphocytes (Bld) [#/Vol] 0.73 x10*3/uL Low 1.20-4.80 [facility] Comment on above: Performed By: #### 5 7021-8 ####DERRICK CHOUDHARYMOTZER L ([id number])[facility] ([facility])[address]38 [place] [address] Lymphocytes/100 WBC (Bld) 4.7 % Normal 13.0-44.0 [facility] Comment on above: Performed By: #### 5 7021-8 ####DERRICK CHOUDHARYMOTZER L ([id number])[facility] ([facility])60251 [place] [address] MCH (RBC) [Entitic mass] 31.7 pg Normal 26.0-34.0 [facility] Comment on above: Performed By: #### 5 7021-8 ####DERRICK CHOUDHARYMOTZER L ([id number])[facility] ([facility])[address]75 [place] [address] MCHC (RBC) [Mass/Vol] 31.0 g/dL Low 32.0-36.0 [facility] Comment on above: Performed By: #### 5 7021-8 ####DERRICK CHOUDHARYMOTZER L ([id number])[facility] ([facility])[address]362 [place] [address] MCV (RBC) [Entitic vol] 102 fL High 80-100 [facility] Comment on above: Performed By: #### 5 7021-8 ####DERRICK Hall ([id number])[facility] ([facility])[address]93 [place] [address] Monocytes (Bld) [#/Vol] 0.21 x10*3/uL Normal 0.10-1.00 [facility] Comment on above: Performed By: #### 5 7021-8 ####DERRICK BRAR L ([id number])[facility] ([facility])21178 [place] [address] Monocytes/100 WBC (Bld) 1.3 % Normal 2.0-10.0 [facility] Comment on above: Performed By: #### 5 7021-8 ####DERRICK Hall ([id number])[facility] ([facility])[address] [place] [address] Neutrophils (Bld) [#/Vol] 14.60 x10*3/uL High 1.20-7.70 [facility] Comment on above: Result Comment: Perc ent differential counts (%) should be interpreted in the context of the absolute cell counts (cells/uL). Performed By: #### 5 7021-8 ####DERRICK Hall ([id number])[facility] ([facility])[address]77 [place] [address] Neutrophils/100 WBC (Bld) 93.0 % Normal 40.0-80.0 [facility] Comment on above: Performed By: #### 5 7021-8 ####DERRICK BRAR L ([id number])[facility] ([facility])31021 [place] [address] Nucleated RBC/100 WBC (Bld) [Ratio] 0.0 /100 WBCs Normal 0.0-0.0 [facility] Comment on above: Performed By: #### 5 7021-8 ####DERRICK Hall ([id number])[facility] ([facility])44852 [place] [address] Platelets (Bld) [#/Vol] 222 x10*3/uL Normal 150-450 [facility] Comment on above: Performed By: #### 5 7021-8 ####DERRICK Hall ([id number])[facility] ([facility])94292 [place] [address] RBC (Bld) [#/Vol] 4.32 x10*6/uL Normal 4.00-5.20 [facility] Comment on above: Performed By: #### 5 7021-8 ####DERRICK Hall ([id number])[facility] ([facility])49357 [place] [address] WBC (Bld) [#/Vol] 15.7 x10*3/uL High 4.4-11.3 [facility] Comment on above: Performed By: #### 5 7021-8 ####DERRICK Hall ([id number])[facility] ([facility])[address]53 [place] [address] Comprehensive metabolic 2000 panelon 03-22-2025 Albumin BCP dye [Mass/Vol] 3.5 g/dL Normal 3.4-5.0 [facility] Comment on above: Performed By: #### 2 4323-8 ####DERRICK Hall ([id number])[facility] ([facility])[address]36 [place] [address] ALP [Catalytic activity/Vol] 70 U/L Normal 33-136 [facility] Comment on above: Performed By: #### 2 4323-8 ####DERRICK BRAR L ([id number])[facility] ([facility])[address]19 [place] [address] ALT With P-5'-P [Catalytic activity/Vol] 8 U/L Normal 7-45 [facility] Comment on above: Result Comment: Meliza ents treated with Sulfasalazine may generate falsely decreased results for ALT. Performed By: #### 2 4323-8 ####DERRICK Hall ([id number])[facility] ([facility])[address] [facility] [place] [address] Anion gap [Moles/Vol] 16 mmol/L Normal 10-20 [facility] Comment on above: Performed By: #### 2 4323-8 ####DERRICK Hall ([id number])[facility] ([facility])[address] [facility] [place] [address] AST With P-5'-P [Catalytic activity/Vol] 9 U/L Normal 9-39 [facility] Comment on above: Result Comment: MILD HEMOLYSIS DETECTED. The result may be falsely elevated due to hemolysis or other interferents. Clinical correlation is recommended. Repeat testing may be considered. Performed By: #### 2 4323-8 ####DERRICK Hall ([id number])[facility] ([facility])[address] [facility] [place] [address] Bilirubin [Mass/Vol] 0.5 mg/dL Normal 0.0-1.2 [facility] Comment on above: Performed By: #### 2 4323-8 ####DERRICK Hall ([id number])[facility] ([facility])[address]898 [place] [address] Calcium [Mass/Vol] 8.9 mg/dL Normal 8.6-10.6 [facility] Comment on above: Performed By: #### 2 4323-8 ####DERRICK Hall ([id number])[facility] ([facility])61464 [place] [address] Chloride [Moles/Vol] 104 mmol/L Normal 98-107 [facility] Comment on above: Performed By: #### 2 4323-8 ####DERRICK Hall ([id number])[facility] ([facility])[address]304 [place] [address] CO2 [Moles/Vol] 20 mmol/L Low 21-32 [facility] Comment on above: Performed By: #### 2 4323-8 ####DERRICK Hall ([id number])[facility] ([facility])[address]66 [place] [address] Creatinine [Mass/Vol] 0.77 mg/dL Normal 0.50-1.05 [facility] Comment on above: Performed By: #### 2 4323-8 ####DERRICK Hall ([id number])[facility] ([facility])[address]48 [place] [address] Glomerular filtration rate/1.73 sq M.predicted 87 mL/min/1.73m*2 Normal >60 [facility] Comment on above: Result Comment: Calc ulations of estimated GFR are performed using the 2020 CKD-EPI Study Refit equation without the race variable for the IDMS-Traceable creatinine methods.https://jasn.asnjournals.org/content/early// N.[id number] Performed By: #### 2 4323-8 ####DERRICK Hall ([id number])[facility] ([facility])[address]74 [place] [address] Glucose [Mass/Vol] 235 mg/dL High 74-99 [facility] Comment on above: Performed By: #### 2 4323-8 ####DERRICK Hall ([id number])[facility] ([facility])[address] [place] [address] Potassium [Moles/Vol] 4.1 mmol/L Normal 3.5-5.3 [facility] Comment on above: Result Comment: MILD HEMOLYSIS DETECTED. The result may be falsely elevated due to hemolysis or other interferents. Clinical correlation is recommended. Repeat testing may be considered. Performed By: #### 2 4323-8 ####DERRICK BRAR L ([id number])[facility] ([facility])[address]471 [place] [address] Protein [Mass/Vol] 5.8 g/dL Low 6.4-8.2 [facility] Comment on above: Performed By: #### 2 4323-8 ####DERRICK Hall ([id number])[facility] ([facility])[address] [place] [address] Sodium [Moles/Vol] 136 mmol/L Normal 136-145 [facility] Comment on above: Performed By: #### 2 4323-8 ####DERRICK Hall ([id number])[facility] ([facility])[address]70 [place] [address] Urea nitrogen [Mass/Vol] 19 mg/dL Normal 6-23 [facility] Comment on above: Performed By: #### 2 4323-8 ####DERRICK Hall ([id number])[facility] ([facility])[address]443 [place] [address] Glucose Test strip manual (B ld) [Mass/Vol]on 03-22-2025 Glucose [Mass/Vol] 161 mg/dL High 74-99 [facility] Comment on above: Performed By: #### 2 341-6 ####DERRICK Hall ([id number])[facility] ([facility])[address] [place] [address] Glucose [Mass/Vol] 148 mg/dL High 74-99 [facility] Comment on above: Performed By: #### 2 341-6 ####DERRICK Hall ([id number])[facility] ([facility])[address] [place] [address] Glucose [Mass/Vol] 182 mg/dL High 74-99 [facility] Comment on above: Performed By: #### 2 341-6 ####DERRICK Hall ([id number])[facility] ([facility])[address] [place] [address] Glucose [Mass/Vol] 221 mg/dL High 74-99 [facility] Comment on above: Result Comment: CHARLES SANDOVAL Performed By: #### 2 341-6 ####DERRICK Hall ([id number])[facility] ([facility])[address] [place] [address] Glucose [Mass/Vol] 248 mg/dL High 74-[address] [place] [address] Comment on above: Result Comment: RN N OTIFIED Performed By: #### 2 341-6 ####DERRICK Hall ([id number])[facility] ([facility])[address] [place] [address] HbA1c (Bld) [Mass fraction]o n 03-22-2025 Average glucose Estimated from glycated hemoglobin (Bld) [Mass/Vol] 143 mg/dL Normal Not Established [facility] Comment on above: Order Comment: Diagn osis of Dxbzwlwg-DreurcAgq-Euegaoxf: < or = 5.6%Increased risk for developing diabetes: 5.7-6.4%Diagnostic of diabetes: > or = 6.5% Performed By: #### 4 548-4 ####DERRICK Hall ([id number])[facility] ([facility])[address] [place] [address] Hemoglobin A1c/Hemoglobin.to fernandez 03-22-2025 HbA1c (Bld) [Mass fraction] 6.6 % High See comment [facility] Comment on above: Order Comment: Diagn osis of Rfzfhnlg-RlzjuwAqu-Syprgshf: < or = 5.6%Increased risk for developing diabetes: 5.7-6.4%Diagnostic of diabetes: > or = 6.5% Performed By: #### 4 548-4 ####DERRICK Hall ([id number])[facility] ([facility])[address] [place] [address] Lactateon 03-22-2025 Lactate [Moles/Vol] 2.0 mmol/L Normal 0.4-2.0 [facility] Comment on above: Order Comment: Venip uncture immediately after or during the administration of Metamizole may lead to falsely low results. Testing should be performed immediately prior to Metamizole dosing. Performed By: #### 2 524-7 ####DERRICK Hall ([id number])[facility] ([facility])[address] [place] [address] Legionella sp Agon Legionella sp Ag Ql (U) Negative Normal Negative [facility] Comment on above: Performed By: #### 3 2781-7 ####DERRICK Hall ([id number])[facility] ([facility])[address] [place] [address] Magnesiumon 03-22-2025 Magnesium [Mass/Vol] 2.22 mg/dL Normal 1.60-2.40 [facility] Comment on above: Result Comment: MILD LIPEMIA DETECTED. The result may be falsely elevated due to lipemia or other interferents. Clinical correlation is recommended. Repeat testing may be considered. Performed By: #### 1 9123-9 ####DERRICK Hall ([id number])[facility] ([facility])[address] [place] [address] Natriuretic peptide B [Mass/ Vol]on 03-22-2025 Natriuretic peptide B (Bld) [Mass/Vol] 117 pg/mL High 0-99 [facility] Comment on above: Order Comment: <100 pg/mL - Heart failure xviodogl024-393 pg/mL - Intermediate probability of acute heart failure exacerbation. Correlate with clinical context and patient history. >=300 pg/mL - Heart Failure likely. Correlate with clinical context and patient history.Biotin interference may cause falsely decreased results. Patients taking a Biotin dose of up to 5 mg/day should refrain from taking Biotin for 24 hours before sample collection. Providers may contact their local laboratory for further information. Performed By: #### 3 0934-4 ####DERRICK Hall ([id number])[facility] ([facility])[address] [place] [address] PT and aPTT panel Coag (PPP) on 03-22-2025 aPTT Coag (PPP) [Time] 23 s Low 26-36 [facility] Comment on above: Order Comment: The A PTT is no longer used for monitoring Unfractionated Heparin Therapy. For monitoring Heparin Therapy, use the Heparin Assay. Performed By: #### 3 4529-8 ####DERRICK Hall ([id number])[facility] ([facility])[address] [place] [address] INR Coag (PPP) [Relative time] 1.1 Normal 0.9-1.1 [facility] Comment on above: Order Comment: The A PTT is no longer used for monitoring Unfractionated Heparin Therapy. For monitoring Heparin Therapy, use the Heparin Assay. Performed By: #### 3 4529-8 ####DERRICK Hall ([id number])[facility] ([facility])[address] [place] [address] PT Coag (PPP) [Time] 12.0 s Normal 9.8-12.4 [facility] Comment on above: Order Comment: The A PTT is no longer used for monitoring Unfractionated Heparin Therapy. For monitoring Heparin Therapy, use the Heparin Assay. Performed By: #### 3 4529-8 ####DERRICK Hall ([id number])[facility] ([facility])[address] [place] [address] Phosphateon 03-22-2025 Phosphate [Mass/Vol] 4.3 mg/dL Normal 2.5-4.9 [facility] Comment on above: Result Comment: MILD HEMOLYSIS DETECTED. The result may be falsely elevated due to hemolysis or other interferents. Clinical correlation is recommended. Repeat testing may be considered. Performed By: #### 2 777-1 ####DERRICK Hall ([id number])[facility] ([facility])[address] [place] [address] Streptococcus pneumoniae Ago n 03-22-2025 S. pneumoniae Ag Ql (U) Negative Normal Negative [facility] Comment on above: Performed By: #### 2 4027-5 ####DERRICK Hall ([id number])[facility] ([facility])[address] [place] [address] TRANSTHORACIC ECHO (TTE) COM PLETEon 03-22-2025 TRANSTHORACIC ECHO (TTE) COMPLETE Normal [facility] Urinalysis complete W Reflex Culture panel (U)on 03-22-2025 Appearance (U) Clear Normal Clear [facility] Comment on above: Order Comment: OVER is reported when the result is greater than the clinically reportable range. Performed By: #### 5 8077-9 ####DERRICK Hall ([id number])[facility] ([facility])[address] [place] [address] Bacteria Auto (Urine sed) [#/Area] 2+ /HPF Abnormal NONE SEEN [facility] Comment on above: Performed By: #### 5 8077-9 ####DERRICK Hall ([id number])[facility] ([facility])[address] [place] [address] Bilirubin (U) [Mass/Vol] Negative Normal NEGATIVE [facility] Comment on above: Order Comment: OVER is reported when the result is greater than the clinically reportable range. Performed By: #### 5 8077-9 ####DERRICK Hall ([id number])[facility] ([facility])[address] [place] [address] Color (U) Light-Yellow Normal Light-Yellow , Yellow, Dark-Yellow [facility] Comment on above: Order Comment: OVER is reported when the result is greater than the clinically reportable range. Performed By: #### 5 8077-9 ####DERRICK Hall ([id number])[facility] ([facility])[address] [place] [address] Epithelial cells.squamous Auto (Urine sed) [#/Area] 1-9 (SPARSE) Normal Reference range not established. [facility] Comment on above: Performed By: #### 5 8077-9 ####DERRICK Hall ([id number])[facility] ([facility])[address] [place] [address] Glucose Auto test strip (U) [Mass/Vol] OVER (4+) Abnormal Normal [facility] Comment on above: Order Comment: OVER is reported when the result is greater than the clinically reportable range. Performed By: #### 5 8077-9 ####DERRICK Hall ([id number])[facility] ([facility])[address] [place] [address] Ketones (U) [Mass/Vol] 10 (1+) Abnormal NEGATIVE [facility] Comment on above: Order Comment: OVER is reported when the result is greater than the clinically reportable range. Performed By: #### 5 8077-9 ####DERRICK ALVESTZER L ([id number])[facility] ([facility])[address] [facility] [place] [address] Leukocyte esterase Auto test strip Ql (U) Negative Normal NEGATIVE [facility] Comment on above: Order Comment: OVER is reported when the result is greater than the clinically reportable range. Performed By: #### 5 8077-9 ####DERRICK CHOUDHARYMOTZER L ([id number])[facility] ([facility])[address] [facility] [place] [address] Mucus Auto (Urine sed) [#/Area] FEW Normal Reference range not established. [facility] Comment on above: Performed By: #### 5 8077-9 ####DERRICK CHOUDHARYMOTZER L ([id number])[facility] ([facility])[address] [place] [address] Nitrite Auto test strip Ql (U) Negative Normal NEGATIVE [facility] Comment on above: Order Comment: OVER is reported when the result is greater than the clinically reportable range. Performed By: #### 5 8077-9 ####DERRICK CHOUDHARYMOTZER L ([id number])[facility] ([facility])[address] [place] [address] pH (U) 6.0 [pH] Normal 5.0, 5.5, 6.0, 6.5, 7.0, 7.5, 8.0 [facility] Comment on above: Order Comment: OVER is reported when the result is greater than the clinically reportable range. Performed By: #### 5 8077-9 ####DERRICK CHOUDHARYMOTZER L ([id number])[facility] ([facility])[address] [facility] [place] [address] Protein (U) [Mass/Vol] 10 (TRACE) Normal NEGATIVE, 10 (TRACE), 20 (TRACE) [facility] Comment on above: Order Comment: OVER is reported when the result is greater than the clinically reportable range. Performed By: #### 5 8077-9 ####DERRICK SCHMOTZER L ([id number])[facility] ([facility])[address] [facility] [place] [address] RBC (U) [#/Vol] Negative Normal NEGATIVE [facility] Comment on above: Order Comment: OVER is reported when the result is greater than the clinically reportable range. Performed By: #### 5 8077-9 ####DERRICK Hall ([id number])[facility] ([facility])[address] [place] [address] RBC Auto (Urine sed) [#/Area] 3-5 Normal NONE, 1-2, 3-5 [facility] Comment on above: Performed By: #### 5 8077-9 ####DERRICK Hall ([id number])[facility] ([facility])[address] [place] [address] Specific gravity (U) [Rel density] >1.030 Normal 1.005-1.035 [facility] Comment on above: Order Comment: OVER is reported when the result is greater than the clinically reportable range. Performed By: #### 5 8077-9 ####DERRICK Hall ([id number])[facility] ([facility])[address] [place] [address] Urobilinogen (U) [Mass/Vol] Normal Normal Normal [facility] Comment on above: Order Comment: OVER is reported when the result is greater than the clinically reportable range. Performed By: #### 5 8077-9 ####DERRICK Hall ([id number])[facility] ([facility])[address] [place] [address] WBC Auto (Urine sed) [#/Area] NONE Normal 1-5, NONE [facility] Comment on above: Performed By: #### 5 8077-9 ####DERRICK Hall ([id number])[facility] ([facility])[address] [place] [address] XR ABDOMEN 1 VIEWon 03-22-20 XR ABDOMEN 1 VIEW Normal [facility] XR CHEST 1 VIEWon 03-22-2025 XR CHEST 1 VIEW Normal [facility] Office Visiton 02-09-2025 Follow-up visit [id number] Chung Dubose 1960 F Date Provider Department Center 02/09/2025 DANII BRANDT [facility] Family History Problem Relation Age of Onset Diabetes Mother Atrial fibrillation Mother Hyperlipidemia Mother Kidney disease Sister Heart attack Maternal Grandmother Stroke Maternal Grandmother Family Status - Relation Status Age at Mother Alive Father Alive Sister Maternal Grandmother Level of Service:43216 [place] OFFICE/OUTPATIENT NEW MODERATE MDM 45 MINUTES Normal [facility] Office Visiton 12-04-2024 Follow-up visit [id number] Chung Dubose 1960 F Date Provider Department Center 12/04/2024 JUSTINE NOLAN DEM[facility] Family History Problem Relation Age of Onset Diabetes Mother Atrial fibrillation Mother Hyperlipidemia Mother Kidney disease Sister Heart attack Maternal Grandmother Stroke Maternal Grandmother Family Status - Relation Status Age at Mother Sister Maternal Grandmother Level of Service:14721 [place] OFFICE/OUTPATIENT ESTABLISHED MOD MDM 30 MIN Normal [facility] Non-Superintendent [facility] Cytology Reporton Non-Superintendent [facility] [place] [address]- Non-Superintendent [facility] Cytology Report Collected Date/Time: 09/24/2024 15:00 EST Pathologist: Sagar HO PhD, Chi Hall Received Date/Time: 09/25/2024 07:07 EST SHANNAN HO, Benjy JOHNSON MD, Benjy Virgen Non-[facility] Cytology Report - 09/29/2024 11:37 EST - [...] CytoLyt solution added, sent for processing. (DC) DC:[facility] Microscopic Description Microscopic examination performed unless gross only specified. Normal [facility] Comment on above: Performed By: #### 4 [id number] #### [facility] [address] [place] [address] Main OR Intraoperative Recor don 09-28-2024 Main OR Intraoperative Record Main OR Intraoperative Record IntraOp Document Type FT Summary Primary Physician: Benjy JOHNSON MD Finalized Date/Time: 09/28/24 10:46:18 Pt. Name: DUBOSE MELISSANITIN Patrick D.O.B./Sex: 1960 Female Med Rec #: [id number] Physician: Benjy JOHNSON MD Financial #: [id number] Pt. Type: A Room/Bed: [place] [address] Admit/Disch: 09/24/24 11:19:24 - 09/24/24 16:35:00 Institution: [...] 2 Entry 3 Case Attendee Omar LEDEZMA, ECOLOGIST TECHNICIAN, Queen SHANNAN HO, James Diggs Role Performed ECOLOGIST TECHNICIAN Surgeon - Primary Seat Builder - Primary Time In 09/24/24 14:13:00 09/24/24 14:13:00 09/24/24 14:13:00 Time Out 09/24/24 14:53:00 09/24/24 14:47:00 09/24/24 14:53:00 Procedure CYSTOSCOPY RETROGRADE CYSTOSCOPY RETROGRADE CYSTOSCOPY RETROGRADE PYELOGRAM(Bilateral) PYELOGRAM(Bilateral) PYELOGRAM(Bilateral) Comments dr bhakta supervising Last Modified By: James Johnson Terry T Sweene, Terry T 09/24/24 15:16:16 09/24/24 15:16:16 09/24/24 15:16:16 Entry 4 Entry 5 Case Attendee Yari Ruiz RT(R), Lizz Morrow Role Performed Scrub - Primary Accounts Receivable Specialist Time In 09/24/24 14:13:00 09/24/24 14:13:00 Time [...] Antibiotic Yes Time Out Omar LEDEZMA, BUZZ, [facility] Participants NMomo, Benjy JOHNSON MD, James Johnson, Yari Ruiz Time Out Complete 09/24/24 14:29:00 Outcomes Met? [...] and tissue Entry 1 Skin Integrity Intact, [place], Warm, & Skin Abnormality No Dry Outcomes [...] signs an (more content not included)... Normal [facility] XR Urography Retrograde Bila tomiiam 09-25-2024 XR Urography Retrograde Bilateral Exam Date/Time: [...] mGy = 14.60 DAP = 1108.78 Normal [facility] CHEMISTRYOrdered By: Lab ROP User on 09-24-2024 Glucose [Mass/Vol] 147 mg/dL High 55 - 99 mg/dL [facility] POC Subsection Comment on above: Result Comment: Martinez edgar RN/ POC Username SHAAN WEAVER Invalid Interpretation Code [facility] POC Subsection Sodium [Moles/Vol] 865987641569 mmol/L Invalid Interpretation Code [facility] POC Subsection Sodium [Moles/Vol] 867106540 mmol/L Invalid Interpretation Code [facility] POC Subsection Capillary Glucose POCon 09-09 Glucose [Mass/Vol] 147 mg/dL High 55-99 [facility] Comment on above: Result Comment: Martinez edgar RN/ Performed By: #### 2 [id number] #### [facility] [address] [place] [address] Discharge Instructionson Discharge Instructions Discharge Instructions DUBOSE MELISSA Celina :1960 Visit Date:09/24/2024 Inpatient Discharge Instructions Your Care Team Admitting Physician - Benjy JOHNSON MD Referring Physician - Benjy JOHNSON MD Reason for Your Visit GROSS HEMATURIA, ADRENAL MASS Tests Performed Pathology Non-Superintendent [facility] Cytology Exam -- Results Pending -- XR [...] mg Tab) spironolactone (spironolactone 25 mg Tab) sulfamethoxazole-trimethop rim (Bactrim D.S. 800 mg-160 mg Tab) tizanidine [...] the pharmacy. Have a great day. Where: [facility] [address] [address]- Business (1) Medications What How Much When Instructions Next Dose New sulfamethoxazole-trimethop rim (Bactrim D.S. 800 mg-160 mg Tab) 1 Tablets By Mouth 2 times a day Pickup at [facility] Changed metoprolol (metoprolol succinate 50 mg ER [...] TABLETS BY MOUTH AT BEDTIME Pharmacy Information [employer] [facility]: [address], [place] [id number] [phone] Allergies No Known Allergies Problems Ongoing - Any problem that you ar (more content not included)... Normal [facility] Comment on above: Result Comment: Elec tronically Signed By: Kym White RN\.br\Date and Time Signed: 09/24/24 15:15 EST Inpatient Patient Summaryon 09-24-2024 Inpatient Patient Summary Inpatient Patient Summary [place] [address] [facility] Clinical Discharge Instructions PERSON INFORMATION Name: MELISSA DUBOSE [facility]#:[id number] PHYSICIANS Admitting Physician: Benjy JOHNSON MD Attending Physician: Benjy JOHNSON MD PCP: Madison Magana MD Discharge Diagnosis: Comment: PATIENT EDUCATION INFORMATION Instructions: Medication Leaflets: Follow up: With: Address: When: Benjy JOHNSON [address] [place] [address], [address], [address] [address] [facility] (1) Comments: Call for followup appointment. I [...] a great day. MEDICATION LIST New Medications [facility], [address], [place] [id number], [phone] sulfamethoxazole-trimethop rim (Bactrim D.S. 800 mg-160 mg Tab) 1 [...] TABLETS BY MOUTH AT BEDTIME. Comment: Normal [facility] Main OR PACU I Recordon 09-09 Main OR PACU I Record Main OR PACU I Rec ord PACU Phase I Document Type FT Summary Primary Physician: Benjy JOHNSON MD Finalized Date/Time: 09/24/24 15:49:26 Pt. Name: MELISSA DUBOSE/Sex: 1960 Female Med Rec #: [id number] Physician: Benjy JOHNSON MD Financial #: [id number] Pt. Type: A Room/Bed: [facility]09/09 Admit/Disch: 09/24/24 11:19:24 - Institution: Case [...] By: Hazel Swain RN 09/24/24 15:49 Normal [facility] Main OR PACU II Recordon Main OR PACU II Record Main OR PACU II Record PACU Phase II Document Type FT Summary Primary Physician: Benjy JOHNSON MD Finalized Date/Time: 09/24/24 16:43:53 Pt. Name: MELISSA DUBOSE.O.B./Sex: 1960 Female Med Rec #: [id number] Physician: Benjy JOHNSON MD Financial #: [id number] Pt. Type: A Room/Bed: Admit/Disch: 09/24/24 11:19:24 - Institution: Case Times [...] By: Kym White RN 09/24/24 16:43 Normal [facility] Main OR Preoperative Recordo n 09-24-2024 Main OR Preoperative Record Main OR Preoperative Record PreOp Document Type FT Summary Primary Physician: Benjy JOHNSON MD Finalized Date/Time: 09/24/24 15:58:07 Pt. Name: MELISSA DUBOSE /Sex: 1960 Female Med Rec #: [id number] Physician: Benjy JOHNSON MD Financial #: [id number] Pt. Type: A Room/Bed: [facility]09/09 Admit/Disch: 09/24/24 11:19:24 - Institution: Case [...] By: Shaan Weaver RN 09/24/24 15:58 Normal [facility] Operative Reporton Operative Report Operative Report Patient: [...] is placed per urethra. A well-lubricated 22 Malaysian is urethroscope with 30 degree lens then passed into the bladder without difficulty. Bladder wash cytology was performed and sent as specimen #1. Bilateral ureteral wash cytologies were also then performed utilizing a 6 Malaysian open-ended ureteral catheter. These were sent to [...] tolerates it well. She transferred to the [facility] and then back to PACU in satisfactory [...] ml. Complications: None. Anesthesia type: General. Normal [facility] Comment on above: Result Comment: Elec tronically Signed By: SHANNAN HO, Benjy Sampson.patience\Date and Time Signed: 09/24/24 15:05 EST Outpatient Surgery Discharge Instructionon 09-24-2024 Outpatient Surgery Discharge Instruction Outpatient Surgery Discharge Instruction [address] [address] Patient Discharge Instructions PERSON INFORMATION Name: MELISSA DUBOSE Date of : 1960 Current Date: 09/24/2024 15:01:43 PHYSICIANS Admitting Physician: Benjy JOHNSON MD Discharge Diagnosis: DUBOSEDORANITIN Patrick has been given the following list of [...] was present when discharge instructions were given ____ Patient Signature _ Date Clinican/Nurse Signature Date Follow up: With: Address: When: Benjy JOHNSON [address] [place] [address], [address], [place] [phone] Business (1) Comments: Call for followup appointment. I [...] Information: You may receive a survey from [employer] [employer] asking you to rate your care experience. Your feedback is important and will help us understand what we do well and how we can improve the quality of care we provide to you, your loved ones and our community. It???s an honor to serve you. Thank you for choosing [facility] HERE ARE THE MEDICATION CHANGES THAT OCCURRED DURING YOUR HOSPITAL STAY New Medications [facility], [address] [place], [place] [id number], [phone] sulfamethoxazole-trimethop rim (Bactrim D.S. 800 mg-160 mg Tab) 1 [...] BEDTIME. PATIENT EDUCATION INFORMATION Instructions: Medication Leaflets: [facility] XR Chest 2 Viewson XR Chest 2 [...] Signed by: Ruiz Redd MD Transcribed by: SONIA Technologist: SARA Technical Comments Radiation Dose: Ka,r in mGy = na DAP = na Normal [facility] BMPon 09-17-2024 Anion gap [Moles/Vol] 14 mmol/L Normal 6-16 [facility] Comment on above: Performed By: #### 2 [id number] #### [facility] Laboratory [address] [place] [address] Calcium [Mass/Vol] 10.2 mg/dL Normal 8.9-11.1 [facility] Comment on above: Performed By: #### 2 585605 #### [facility] [address] [place] [address] Chloride [Moles/Vol] 103 mmol/L Normal 101-111 [facility] Comment on above: Performed By: #### 2 [id number] #### [facility] [address] [place] [address] CO2 [Moles/Vol] 25 mmol/L Normal 21-31 [facility] Comment on above: Performed By: #### 2 [id number] #### [facility] [address] [place] [address] Creatinine [Mass/Vol] 1.1 mg/dL Normal 0.5-1.3 [facility] Comment on above: Performed By: #### 2 [id number] #### [facility] [address] [place] [address] Glucose [Mass/Vol] 155 mg/dL Normal 55-199 [facility] Comment on above: Performed By: #### 2 [id number] #### [facility] [address] [place] [address] Potassium [Moles/Vol] 4.5 mmol/L Normal 3.5-5.3 [facility] Comment on above: Performed By: #### 2 [id number] #### [facility] [address] [place] [address] Sodium [Moles/Vol] 137 mmol/L Normal 135-145 [facility] Comment on above: Performed By: #### 2 [id number] #### [facility] [address] [place] [address] Urea nitrogen [Mass/Vol] 25 mg/dL High 5-21 [facility] Comment on above: Performed By: #### 2 [id number] #### [facility] [address] [place] [address] Urea nitrogen/Creatinine [Mass ratio] 23 No Units High 10-20 [facility] Comment on above: Performed By: #### 2 [id number] #### [facility] [address] [place] [address] CBC w/ Auto Diffon 5 Basophils/100 WBC (Bld) 0.5 % Normal 0.0-2.0 [facility] Comment on above: Performed By: #### 2 [id number] #### [facility] [address] [place] [address] Basophils/Leukocytes Auto (Bld) [Pure # fraction] 0.0 E9/L Normal 0.0-0.2 [facility] Comment on above: Performed By: #### 2 [id number] #### [facility] [address] [place] [address] Eosinophils (Bld) [#/Vol] 0.1 E9/L Normal 0.0-0.5 [facility] Comment on above: Performed By: #### 2 [id number] #### [facility] [address] [place] [address] Eosinophils/100 WBC (Bld) 1.0 % Normal 0.0-8.0 [facility] Comment on above: Performed By: #### 2 [id number] #### [facility] [address] [place] [address] Erythrocyte distribution width (RBC) [Ratio] 13.7 % Normal 10.9-14.2 [facility] Comment on above: Performed By: #### 2 [id number] #### [facility] [address] [place] [address] Hematocrit (Bld) [Volume fraction] 45.5 % Normal 34.0-46.0 [facility] Comment on above: Performed By: #### 2 [id number] #### [facility] [address] [place] [address] Hemoglobin (Bld) [Mass/Vol] 15.5 g/dL Normal 12.0-16.0 [facility] Comment on above: Performed By: #### 2 [id number] #### [facility] [address] [place] [address] Lymphocytes (Bld) [#/Vol] 1.7 E9/L Normal 1.0-4.0 [facility] Comment on above: Performed By: #### 2 [id number] #### [facility] [address] [place] [address] Lymphocytes/100 WBC (Bld) 19.8 % Normal 14.0-50.0 [facility] Comment on above: Performed By: #### 2 [id number] #### [facility] [address] [place] [address] MCH (RBC) [Entitic mass] 31.9 pg Normal 27.0-34.0 [facility] Comment on above: Performed By: #### 2 [id number] #### [facility] [address] [place] [address] MCHC (RBC) [Mass/Vol] 34.0 g/dL Normal 31.4-36.0 [facility] Comment on above: Performed By: #### 2 [id number] #### [facility] [address] [place] [address] MCV (RBC) [Entitic vol] 93.9 fL Normal 80.0-100.0 [facility] Comment on above: Performed By: #### 2 [id number] #### [facility] [address] [place] [address] Monocytes (Bld) [#/Vol] 0.7 E9/L Normal 0.2-1.0 [facility] Comment on above: Performed By: #### 2 [id number] #### [facility] [address] [place] [address] Neutrophils (Bld) [#/Vol] 6.0 E9/L Normal 2.0-7.5 [facility] Comment on above: Performed By: #### 2 [id number] #### [facility] [address] [place] [address] Neutrophils/100 WBC (Bld) 70.2 % Normal 36.0-75.0 [facility] Comment on above: Performed By: #### 2 [id number] #### [facility] [address] [place] [address] Platelet mean volume (Bld) [Entitic vol] 7.7 fL Normal 6.4-10.8 [facility] Comment on above: Performed By: #### 2 [id number] #### [facility] [address] [place] [address] Platelets (Bld) [#/Vol] 239.0 E9/L Normal 150.0-500.0 [facility] Comment on above: Performed By: #### 2 [id number] #### [facility] [address] [place] [address] RBC (Bld) [#/Vol] 4.8 E12/L Normal 4.3-5.9 [facility] Comment on above: Performed By: #### 2 [id number] #### [facility] [address] [place] [address] WBC corrected for nucl RBC Auto (Bld) [#/Vol] 8.5 E9/L Normal 4.0-11.0 [facility] Comment on above: Performed By: #### 2 [id number] #### [facility] [address] [place] [address] CHEMISTRYOrdered By: SYSTEM SYSTEM on 09-17-2024 Anion gap [Moles/Vol] 14 mmol/L Normal 6 - 16 mEq/L R emisol Chem Calcium [Mass/Vol] 10.2 mg/dL Normal 8.9 - 11. 1 mg/dL Rem[facility] Chem Chloride [Moles/Vol] 103 mmol/L Normal 101 - 1 11 mmol/L Rem[facility] Chem CO2 [Moles/Vol] 25 mmol/L Normal 21 - 31 mmol/L [facility] Chem Creatinine [Mass/Vol] 1.1 mg/dL Normal 0.5 - 1.3 mg/dL Rem[facility] Chem eGFR 57 mL/min/1.73 m2 Low >=59mL/min /1 .73 m2 Remisol Chem Glucose [Mass/Vol] 155 mg/dL [...] 34.0 s Normal 25.1 - 36.5 second(s) [facility] Auto Coag Comment on above: Interpretive Data: [...] the same coagulation reagent and instrumentation as [facility]. Currently there are no coagulation studies available worldwide for children to 14 days, and no normal ranges. Heparin therapeutic range (represented by Anti-Factor Xa activity of 0.2 - 0.4 U/mL) corresponds to PTT of 56.6 - 109.0 sec. INR Coag (PPP) [Relative time] 1.17 {INR} Invalid Interpretation Code [facility] Co[facility] Comment on above: Interpretive Data: I NR results are specifically intended to assess patients stabilized on long-term Anticoagulation therapy suggested INR s Less Intensive Anticoagulation 2.0 3.0 Conventional Range 3.0 4.5 PT Coag (PPP) [Time] 13.1 s High 9.4 - 1 2.5 second(s) [facility] Auto Coag Comment on above: Interpretive Data: [...] the same coagulation reagent and instrumentation as [facility]. Currently there are no coagulation studies available [...] Coag (PPP) [Time] 34.0 second(s) Normal 25.1-36.5 [facility] Comment on above: Result Comment: Para meter [...] the same coagulation reagent and instrumentation as [facility]. Currently there are no coagulation studies available worldwide for children to 14 days, and no normal ranges. Heparin therapeutic range (represented by Anti-Factor Xa activity of 0.2 - 0.4 U/mL) corresponds to PTT of 56.6 - 109.0 sec. Performed By: #### 1 [id number] #### [facility] [address] [place] [address] INR Coag (PPP) [Relative time] 1.17 {INR} Invalid Interpretation Code [facility] Comment on above: Result Comment: INR results are specifically intended to assess patients stabilized on long-term Anticoagulation therapy suggested INR???s ???Less Intensive Anticoagulation??? 2.0 ??? 3.0 Conventional Range 3.0 ??? 4.5 Performed By: #### 1 [id number] #### [facility] [address] [place] [address] PT Coag (PPP) [Time] 13.1 second(s) High 9.4-12.5 [facility] Comment on above: Result Comment: 15 d [...] the same coagulation reagent and instrumentation as [facility]. Currently there are no coagulation studies available worldwide for children to 14 days, and no normal ranges. Performed By: #### 1 [id number] #### [facility] [address] [place] [address] UA with Cult Rflxon 09-17-19 25 Bilirubin Ql (U) Negative Normal Negative [facility] Comment on above: Performed By: #### 4 [id number] #### [facility] [address] [place] [address] Clarity (U) Clear Normal Clear [facility] Comment on above: Performed By: #### 4 [id number] #### [facility] [address] [place] [address] Color (U) Yellow Normal Yellow [facility] Comment on above: Result Comment: Micr oscopic readings are only performed on those samples that meet specific criteria set forth by [facility]. Performed By: #### 4 [id number] #### [facility] [address] [place] [address] Glucose Ql (U) 4+ mg/dL Abnormal Negative [facility] Comment on above: Performed By: #### 4 [id number] #### [facility] [address] [place] [address] Hemoglobin Auto test strip (U) [Mass/Vol] Negative Normal Negative [facility] Comment on above: Performed By: #### 4 [id number] #### [facility] [address] [place] [address] Ketones Auto test strip Ql (U) Negative Normal Negative [facility] Comment on above: Performed By: #### 4 [id number] #### [facility] [address] [place] [address] Leukocyte esterase Auto test strip Ql (U) Negative Normal Negative [facility] Comment on above: Performed By: #### 4 [id number] #### [facility] [address] [place] [address] Nitrite Auto test strip Ql (U) Negative Normal Negative [facility] Comment on above: Performed By: #### 4 [id number] #### [facility] [address] [place] [address] pH (U) 5.5 [pH] Invalid Interpretation Code 5.0-9.0 [facility] Comment on above: Performed By: #### 4 [id number] #### [facility] [address] [place] [address] Protein Ql (U) Trace Abnormal Negative [facility] Comment on above: Performed By: #### 4 [id number] #### [facility] [address] [place] [address] Specific gravity (U) [Rel density] 1.036 Invalid Interpretation Code 1.005-1.030 [facility] Comment on above: Performed By: #### 4 [id number] #### [facility] [address] [place] [address] Urobilinogen (U) [Mass/Vol] 2 mg/dL Abnormal Negative [facility] Comment on above: Performed By: #### 4 [id number] #### [facility] [address] [place] [address] Type of Urine collection method Clean Catch Normal [facility] Comment on above: Performed By: #### 4 [id number] #### [facility] [address] [place] [address] URINALYSISOrdered By: SYSTEM SYSTEM on 09-17-2024 Bilirubin Ql (U) Negative Normal Negativemg/ d L [facility] UA Auto SS Clarity (U) Clear (09/17/24 2:03 PM) Normal Clear [facility] UA Auto SS Color (U) Yellow 1 (09/17/24 2:03 PM) Normal Yellow [facility] UA Auto SS Comment on above: Interpretive Data: M icroscopic readings are only performed on those samples that meet specific criteria set forth by [facility]. Glucose Ql (U) 4+ mg/dL Invalid Interpretation Code Negativemg/d L [facility]A Auto SS Hemoglobin Auto test strip (U) [Mass/Vol] Negative Normal Negativemg/d L [facility] UA Auto SS Ketones Auto test strip Ql (U) Negative Normal Negativemg/d L [facility] UA Auto SS Leukocyte esterase Auto test strip Ql (U) Negative Normal NegativeLeu/ uL [facility] UA Auto SS Nitrite Auto test strip Ql (U) Negative Normal Negativemg/d L [facility] UA Auto SS pH (U) 5.5 *NA* (09/17/24 2:03 PM) Invalid Interpretation Code 5.0 - 9.0 [facility]A Auto SS Protein Ql (U) Trace mg/dL Invalid Interpretation Code Negativemg/d L [facility] UA Auto SS Specific gravity (U) [Rel density] 1.036 *NA* (09/17/24 2:03 PM) Invalid Interpretation Code 1.005 - 1.030 [facility] UA Auto SS Urobilinogen (U) [Mass/Vol] 2 mg/dL Invalid Interpretation Code Negativemg/d L [facility] UA Auto SS URINALYSISOrdered By: Jp Liu on 09-17-2024 UA Spec Desc Clean Catch (09/17/24 2:03 PM) Normal [facility] Auto SS eGFRon 09-17-2024 eGFR 57 mL/min/1.73 m2 Low >=59 [facility] Comment on above: Performed By: #### 1 [id number] #### [facility] [address] [place] [address] 36on 09-07-[address] Leroy and Office to get a fax number and gave the Medical Records fax number on Dr. SOLOMON> no answer and office. Normal [facility] UroVysion Fish and Urine Cyt o ([facility])on 08-26-2024 UVFISH & UC Diagnosis Info Invalid Interpretation Code [facility] Comment on above: Result Comment: A:Ur ine,Bladder [...] with cytology and cystoscopy results. * CPT: 76043, 44478. Microscopic Notes - Microscopic Notes - Abnormal cells 9p21 deletions: Abnormal cells aneploid events: Total cells analyzed: 200 Hematuria: Gross Description Site ID:A color Yellow fixative Alcohol Received 80 mls of clear yellow fluid with the patient's name and, Bladder Wash on the vial. Electronically signed by : on: 08/26/2024 16:06:35 Performed By: #### 1 [id number] #### [facility] [address] [place] [address] Office Visiton 08-24-2024 Follow-up visit [id number] Chung Dubose 1960 F Date Provider Department Center 08/24/2024 AkilahJUSTINE PARKS [facility] Family History Problem Relation Age of Onset Diabetes Mother Atrial fibrillation Mother Hyperlipidemia Mother Kidney disease Sister Heart attack Maternal Grandmother Stroke Maternal Grandmother Family Status - Relation Status Age at Mother Sister Maternal Grandmother Level of Service:77882 [place] OFFICE/OUTPATIENT ESTABLISHED MOD MDM 30 MIN Normal [facility] Ambulatory Visit Summaryon 1 10-21-2023 Ambulatory Visit Summary Ambulatory Visit Summary MELISSA DUBOSE :1960 Visit Date:08/20/2024 Ambulatory Visit Instructions Your Diagnosis Gross hematuria Adrenal mass Kidney stones OAB (overactive bladder) Former smoker Anticoagulated Your Care Team Attending Physician - Benjy JOHNSON MD Primary Care Physician - [place] HO, [place] This Is Your Medications List cephalexin (Keflex [...] Appointments Follow Up with SHANNAN HO, Benjy Sevilla, AJ When: Where: [address] [facility] [address] [place] [address]- Medications What How Much When Instructions Unchanged [...] or it (more content not included)... Normal [facility] UroVysion Fish and Urine Cyt o ([facility])on 08-20-2024 [facility] Method of Extraction Bladder Wash Normal [facility] Comment on above: Performed By: #### 1 [id number] #### [facility] [address] [place] [address] [facility]UC Number of Jars 1 Invalid Interpretation Code [facility] Comment on above: Performed By: #### 1 [id number] #### [facility] [address] [place] [address] [facility] Specimen Bladder Wash Normal [facility] Comment on above: Performed By: #### 1 [id number] #### [facility] [address] [place] [address] [facility] Type of Service Technical Only Normal [facility] Comment on above: Performed By: #### 1 [id number] #### [facility] [address] [place] [address] Urology Office/Clinic Noteon 08-20-2024 Urology Office/Clinic Note Urology Office/Clinic Note Chief Complaint cysto HPI Staff Cysto ABX taken. Pt has been peeing blood since bhupendra, got worse over the weekend. History of [...] urothelial cancer. (more content not included)... Normal [facility] Comment on above: Result Comment: Elec tronically Signed By: Benjy JOHNSON MD P\.br\Date and Time Signed: 08/20/24 15:47 EST\.br\Electronically Co-Signed By: Danuta Larson\.br\Date and Time Co-Signed: 08/20/24 15:42 EST Office Visiton 07-29-2024 Follow-up visit [id number] Chung Dubose 1960 F Date Provider Department Center 07/29/2024 JUSTINE NOLAN DEMETRIS [facility] Family History Problem Relation Age of Onset Diabetes Mother Atrial fibrillation Mother Hyperlipidemia Mother Kidney disease Sister Heart attack Maternal Grandmother Stroke Maternal Grandmother Family Status - Relation Status Age at Mother Sister Maternal Grandmother Level of Service:96693 [place] OFFICE/OUTPATIENT ESTABLISHED MOD MDM 30 MIN Normal [facility] 36on 07-01-2024 36 Patient came into of fice to ECG. She is not in afib per Dr. Parks. 30 day event monitor was placed. She has follow up in Jul. Vitals: 144/88, HR 53 Normal [facility] 36on 06-30-2024 36 Her echocardiogram o n 06/23/2024 showed EF 20%. I want her to come to the office to obtain an ECG. If she is not in atrial fibrillation, then I want her to wear a event monitor to see if she is having episodes of AF that would explain the low EF. Also please obtain vital signs. Normal [facility] Telephoneon 06-30-2024 Telephone [id number] Chung Dubose 1960 F Date Provider Department Center 06/30/2024 JUSTINE NOLAN Family History Problem Relation Age of Onset Diabetes Mother Atrial fibrillation Mother Hyperlipidemia Mother Kidney disease Sister Heart attack Maternal Grandmother Stroke Maternal Grandmother Family Status - Relation Status Age at Mother Sister Maternal Grandmother Normal [facility] Urine Cytology ([facility])on 06-05-2024 Microscopic exam Cytology (U) [Interp] Diagnosis Info Invalid Interpretation Code [facility] Comment on above: Result Comment: A:Ur ine,Clean Catch:Voided Interpretation - Adequate cellularity for evaluation. MicroScopic Description - Adequacy - Adequate Gross Description Site ID:A color Yellow fixative Alcohol Specimen designated Clean Catch received in alcohol preservative and labeled with the patient???s name, consists of 40ml cloudy yellow fluid. Electronically signed by : on: 06/05/2024 15:04:11 Performed By: #### 1 [id number] #### [facility] [address] [place] [address] Ambulatory Visit Summaryon 06-02-2024 Ambulatory Visit Summary [...] with SHANNAN HO, AJ Jean When: Comments: elba Where: [address] [place], [place] [id number]- Medications What How Much When Instructions Unchanged [...] that req (more content not included)... Normal [facility] Urine Cytology ([facility])on 0 06-02-2024 Method of Extraction Voided Normal [facility] Comment on above: Performed By: #### 1 [id number] #### [facility] [address] Number of Jars 1 Invalid Interpretation Code [facility] Comment on above: Performed By: #### 1 [id number] #### [facility] [address] [place] [id number] Specimen Clean Catch Normal [facility] Comment on above: Performed By: #### 1 [id number] #### [facility] [address] [place] [id number] Type of Service Technical Only Normal [facility] Comment on above: Performed By: #### 1 [id number] #### [facility] [address] [place] [address] Urology Office/Clinic Noteon 06-02-2024 Urology Office/Clinic Note [...] with voice recognition artificial intelligence software, specifically [facility], [employer] and or [employer]. Substitutions may have occurred due to the [...] nodule. Discussed adrenal nodule findings. Will call [facility] radiology for Hounsfield measurements between the contrast and noncontrast images. May need additional lab work versus further workup. Patient will likely need separate discussion regarding this, she was very overwhelmed with hematuria discussion today. -Request for addendum on [facility] CTs 3. OAB (overactive bladder) (N32.81: Overactive [...] nonobstructing nephrol (more content not included)... Normal [facility] Comment on above: Result Comment: Elec tronically Signed By: HILTON Tariq APRN, Ashley Sorenson\.br\Date and Time Signed: 06/02/24 14:44 EDT Office Visiton 05-01-2024 Follow-up visit [id number] Chung Dubose 1960 F Date Provider Department Center 05/01/2024 JUSTINE NOLAN Family History Problem Relation Age of Onset Diabetes Mother Atrial fibrillation Mother Hyperlipidemia Mother Kidney disease Sister Heart attack Maternal Grandmother Stroke Maternal Grandmother Family Status - Relation Status Age at Mother Sister Maternal Grandmother Level of Service:24533 [place] OFFICE/OUTPATIENT ESTABLISHED MOD MDM 30 MIN Normal [facility] Office Visiton 02-19-2024 Follow-up visit [id number] Chung Dubose 1960 Date Provider Department Center 02/19/2024 [id number] NEW DEMETRIS [facility] Family History Problem Relation Age of Onset Diabetes Mother Atrial fibrillation Mother Hyperlipidemia Mother Kidney disease Sister Heart attack Maternal Grandmother Stroke Maternal Grandmother Family Status - Relation Status Age at Mother Sister Maternal Grandmother Level of Service:09344 [place] OFFICE/OUTPATIENT ESTABLISHED MOD MDM 30 MIN Normal [facility] Calcium [Mass/volume] in Ser um or PlasmaOrdered By: Winter Norris on 11-24-2023 Calcium [Mass/Vol] 9.0 mg/dL 8.6-10.3 [facility] Carbon dioxide, total [Moles /volume] in Serum or PlasmaOrdered By: Winter Norris on 11-24-2023 CO2 [Moles/Vol] 30.8 mmol/L 21.0-31.[address] [facility] Chloride [Moles/volume] in S mehreen or PlasmaOrdered By: Winter Norris on 11-24-2023 Chloride [Moles/Vol] 100 mmol/L 98-107 [facility] Creatinine [Mass/volume] in Serum or PlasmaOrdered By: Winter Norris on 11-24-2023 Creatinine [Mass/Vol] 0.91 mg/dL 0.60-1.20 [facility] Glucose Glucometer (BldC) [M ass/Vol]Ordered By: Winter Norris on 11-24-2023 Glucose [Mass/Vol] 271 mg/dL [facility] Comment on above: Random Glucose Refer ence Range is dependent on time and content of last meal. Glucose of more than 200 mg/dL in a nonstressed, ambulatory subject supports the diagnosis of Diabetes Mellitus. Glucose [Mass/volume] in Ser um or PlasmaOrdered By: Winter Norris on 11-24-2023 Glucose [Mass/Vol] 259 mg/dL 70-100 [facility] Comment on above: Delta: 133 on -[id number] recommended reference rangeRandom Glucose Reference Range is dependent on time and content of last meal. Glucose of more than 200 mg/dL in a nonstressed, ambulatory subject supports the diagnosis of Diabetes Mellitus. No Panel InformationOrdered By: Winter Norris on 11-24-2023 Estimated GFR (CKD-EPI) > 60.0 mL/Min [facility] Creatinine Clearance (Chem 85.70 [facility] Potassium [Moles/volume] in Serum or PlasmaOrdered By: Winter Norris on 11-24-2023 Potassium [Moles/Vol] 3.7 mmol/L 3.5-5.1 [facility] Serum or plasma anion gap de terminationOrdered By: Winter Norris on 11-24-2023 Anion gap [Moles/Vol] 10.9 mmol/L 6.0-15.0 [facility] Sodium [Moles/volume] in Ser um or PlasmaOrdered By: Winter Norris on 11-24-2023 Sodium [Moles/Vol] 138 mmol/L 136-145 [facility] Urea nitrogen [Mass/volume] in Serum or PlasmaOrdered By: Winter Norris on 11-24-2023 Urea nitrogen [Mass/Vol] 23 mg/dL 7-25 [facility] Basophils Auto (Bld) [#/Vol] Ordered By: Winter Norris on 11-23-2023 Basophils (Bld) [#/Vol] 0.0 10*3/uL 0.0-0.2 [facility] Basophils/100 WBC Auto (Bld) Ordered By: Winter Norris on 11-23-2023 Basophils/100 WBC (Bld) 0.1 % . [facility] Eosinophils Auto (Bld) [#/Vo l]Ordered By: Winter Norris on 11-23-2023 Eosinophils (Bld) [#/Vol] 0.0 10*3/uL 0.0-0.45 [facility] Eosinophils/100 WBC Auto (Bl d)Ordered By: Winter Norris on 11-23-2023 Eosinophils/100 WBC (Bld) 0.0 % . [facility] Erythrocyte distribution wid th Auto (RBC) [Ratio]Ordered By: Winter Norris on 11-23-2023 Erythrocyte distribution width (RBC) [Ratio] 15.3 % 11.9-15.3 [facility] Hematocrit Auto (Bld) [Volum e fraction]Ordered By: Winter Norris on 11-23-2023 Hematocrit (Bld) [Volume fraction] 40.4 % 34.0-46.4 [facility] Hemoglobin [Mass/volume] in BloodOrdered By: Winter Norris on 11-23-2023 Hemoglobin (Bld) [Mass/Vol] 13.1 g/dL 11.8-15.4 [facility] Leukocytes [#/volume] correc nargis for nucleated erythrocytes in Blood by Automated counOrdered By: Winter Norris on 11-23-2023 WBC corrected for nucl RBC Auto (Bld) [#/Vol] 9.6 10*3/uL 3.8-11.6 [facility] Lymphocytes Auto (Bld) [#/Vo l]Ordered By: Winter Norris on 11-23-2023 Lymphocytes (Bld) [#/Vol] 1.7 10*3/uL 1.00-4.8 [facility] Lymphocytes/100 WBC Auto (Bl d)Ordered By: Winter Norris on 11-23-2023 Lymphocytes/100 WBC (Bld) 17.7 % . [facility] MCH Auto (RBC) [Entitic mass ]Ordered By: Winter Norris on 11-23-2023 MCH (RBC) [Entitic mass] 28.2 pg 24.7-34.3 [facility] MCHC Auto (RBC) [Mass/Vol]Or dered By: Winter Norris on 11-23-2023 MCHC (RBC) [Mass/Vol] 32.4 g/dL 32.0-35.0 [facility] MCV Auto (RBC) [Entitic vol] Ordered By: Winter Norris on 11-23-2023 MCV (RBC) [Entitic vol] 86.9 fL 80-100 [facility] Monocytes Auto (Bld) [#/Vol] Ordered By: Winter Norris on 11-23-2023 Monocytes (Bld) [#/Vol] 0.9 10*3/uL 0.0-0.8 [facility] Monocytes/100 WBC Auto (Bld) Ordered By: Winter Norris on 11-23-2023 Monocytes/100 WBC (Bld) 9.5 % . [facility] Neutrophils Auto (Bld) [#/Vo l]Ordered By: Winter Norris on 11-23-2023 Neutrophils (Bld) [#/Vol] 7.0 10*3/uL 1.8-7.7 [facility] Neutrophils/100 WBC Auto (Bl d)Ordered By: Winter Norris on 11-23-2023 Neutrophils/100 WBC (Bld) 72.7 % . [facility] No Panel InformationOrdered By: Winter Norris on 11-23-2023 Bedside Glucose Comment Glu2: cleaned meter [facility] Nucleated erythrocytes [Pres ence] in Blood by Automated countOrdered By: Winter Norris on 11-23-2023 Nucleated RBC Auto Ql (Bld) 0.1 /100{WBC} 0-0.5 [facility] Platelet mean volume Auto (B ld) [Entitic vol]Ordered By: Winter Norris on 11-23-2023 Platelet mean volume (Bld) [Entitic vol] 8.5 fL 6.3-10.7 [facility] Platelets Auto (Bld) [#/Vol] Ordered By: Winter Norris on 11-23-2023 Platelets (Bld) [#/Vol] 203 10*3/uL 150-450 [facility] RBC Auto (Bld) [#/Vol]Ordere d By: Winter Norris on 11-23-2023 RBC (Bld) [#/Vol] 4.65 10*6/uL 3.60-5.00 [facility] WBC Auto (Bld) [#/Vol]Ordere d By: Winter Norris on 11-23-2023 WBC (Bld) [#/Vol] 9.6 10*3/uL 3.8-11.6 [facility] Activated partial thrombopla stin time (aPTT) in platelet poor plasma by coagulation aOrdered By: Justine Jacobo on 11-22-2023 aPTT Coag (PPP) [Time] 27.6 s 25.1-36.5 [facility] Comment on above: A hematocrit value g reater than 55% may lead to inaccurate results in coagulation testing. Patients having hematocrit values >55% require a special collection tube for coagulation studies. Please contact the laboratory at [phone] for redraw instructions. INR in Platelet poor plasma by Coagulation assayOrdered By: Justine Jacobo on 11-22-2023 INR Coag (PPP) [Relative time] 1.2 {INR} [facility] Comment on above: INR Therapeutic Rang [...] (PPP) [Time] 14.0 s 9.0-12.9 [facility] Comment on above: A hematocrit value g reater than 55% may lead to inaccurate results in coagulation testing. Patients having hematocrit values >55% require a special collection tube for coagulation studies. Please contact the laboratory at [phone] for redraw instructions. Automated erythrocytes count in urine sediment (number/area)Ordered By: Winter Norris on 11-21-2023 RBC Auto (Urine sed) [#/Area] 1-2 [HPF] 0-4 [facility] Automated leukocytes count i n urine sediment (number/area)Ordered By: Winter Norris on 11-21-2023 WBC Auto (Urine sed) [#/Area] 0-1 [HPF] 0-4 [facility] Bilirubin Test strip Ql (U)O rdered By: Winter Norris on 11-21-2023 Bilirubin Ql (U) Negative Negative [facility] Cholesterol [Mass/volume] in Serum or PlasmaOrdered By: Karen Mays on 11-21-2023 Cholesterol [Mass/Vol] 95 mg/dL 140-200 [facility] Comment on above: Chol less than 200 m g/dl low riskChol 201-239 mg/dl borderline riskChol 240 mg/dl and greater high risk Cholesterol in LDL Calc [Mas s/Vol]Ordered By: Karen Mays on 11-21-2023 Cholesterol in LDL [Mass/Vol] 53 mg/dL 0-100 [facility] Comment on above: LDL ATP III CLASSIFI CATIONLDL less than 100 mg/dL OptimalLDL 100-129 mg/dL Near or above optimalLDL 130-159 mg/dL Borderline highLDL 160-189 mg/dL HighLDL greater than 189 mg/dL Very high Cholesterol in VLDL Calc [Ma ss/Vol]Ordered By: Karen Mays on 11-21-2023 Cholesterol in VLDL [Mass/Vol] 12 mg/dL [facility] Color Auto (U)Ordered By: Juanita Norris on 11-21-2023 Color (U) Yellow Yellow [facility] Glucose mean value [Mass/vol ume] in Blood Estimated from glycated hemoglobinOrdered By: Karen Mays on 11-21-2023 Average glucose Estimated from glycated hemoglobin (Bld) [Mass/Vol] 88 mg/dL [facility] Hemoglobin A1c percentageOrd ered By: Karen Mays on 11-21-2023 HbA1c (Bld) [Mass fraction] 4.7 % 4.3-5.6 [facility] Comment on above: Increased risk for d iabetes: 5.7 - 6.4diabetes: >6.4glycemic control for adults with diabetes: <7.0 Ketones Auto test strip (U) [Mass/Vol]Ordered By: Winter Norris on 11-21-2023 Ketones (U) [Mass/Vol] Negative Negative [facility] Laboratory - UrinalysisOrder ed By: Winter Norris on 11-21-2023 Hyaline casts LM Ql (Urine sed) None seen [LPF] 0-8 [facility] Lactate [Moles/volume] in Se rum or PlasmaOrdered By: Karen Mays on 11-21-2023 Lactate [Moles/Vol] 1.5 mmol/L 0.5-2.2 [facility] Nitrite Test strip Ql (U)Ord ered By: Winter Norris on 11-21-2023 Nitrite Ql (U) Negative Negative [facility] No Panel InformationOrdered By: Winter Norris on 11-21-2023 Bedside Glucose #2 Comment Cleaned meter [facility] Bedside Glucose #3 Comment Will repeat test [facility] Protein Auto test strip (U) [Mass/Vol]Ordered By: Winter Norris on 11-21-2023 Protein (U) [Mass/Vol] Negative Negative [facility] Serum or plasma high density lipoprotein (HDL) cholesterol measurementOrdered By: Karen Mays on 11-21-2023 Cholesterol in HDL [Mass/Vol] 29 mg/dL 23-92 [facility] Comment on above: HDL CHOL ATP-III CLA SSIFICATION Cardiovascular RiskHDL > or equal to 60 mg/dL LOWHDL < 40 mg/dL HIGH Serum or plasma total choles terol/high density lipoprotein (HDL) cholesterol mass ratOrdered By: Karen Mays on 11-21-2023 Cholesterol.total/Cho lesterol in HDL [Mass ratio] 3.3 {ratio} <5.0 [facility] Specific gravity Auto test s trip (U) [Rel density]Ordered By: Winter Norris on 11-21-2023 Specific gravity (U) [Rel density] 1.012 1.001-1.030 [facility] Squamous epithelial cells de tection in urine sediment by light microscopyOrdered By: Winter Norris on 11-21-2023 Epithelial cells.squamous LM Ql (Urine sed) None seen [HPF] 0-2 [facility] Triglyceride [Mass/volume] i n Serum or PlasmaOrdered By: Karen Mays on 11-21-2023 Triglyceride [Mass/Vol] 63 mg/dL 0-149 [facility] Comment on above: TRIG ATP III CLASSIF ICATIONTRIG less than 150 mg/dL NormalTRIG 150-199 mg/dL Borderline highTRIG 200-500 mg/dL High TRIG greater than 500 mg/dL Very highStandard traceable to the Center for Disease Conrtrol and Prevention (CDC) test method. Troponin I.cardiac [Mass/vol ume] in Serum or Plasma by Detection limit <= 0.01 ng/Ordered By: Karen Mays on 11-21-2023 Troponin I.cardiac DL <= 0.01 ng/mL [Mass/Vol] 70.7 pg/mL 0.0-15.0 [facility] Comment on above: Critical Result : Ca lled to and read back by: DENNIS JOHNSON at: 11/21/2023 11:29:54 by:SAMINA Urine bacteria detection by automated methodOrdered By: Winter Norris on 11-21-2023 Bacteria Auto Ql (U) None seen None Seen [facility] Urine clarity by refractomet ry automatedOrdered By: Winter Norris on 11-21-2023 Clarity Refractometry automated (U) Clear Clear [facility] Urine glucose measurement by automated test strip (mass/volume)Ordered By: Winter Norris on 11-21-2023 Glucose Auto test strip (U) [Mass/Vol] >=1000 mg/dL Normal [facility] Urine hemoglobin detection b y automated test stripOrdered By: Winter Norris on 11-21-2023 Hemoglobin Auto test strip Ql (U) 1+ Negative [facility] Urine leukocyte esterase det ection by automated test stripOrdered By: Winter Norris on 11-21-2023 Leukocyte esterase Auto test strip Ql (U) Negative Negative [facility] Urobilinogen Auto test strip (U) [Mass/Vol]Ordered By: Winter Norris on 11-21-2023 Urobilinogen (U) [Mass/Vol] Normal mg/dL Normal [facility] pH Auto test strip (U)Ordere d By: Winter Norris on 11-21-2023 pH (U) 5.5 [pH] 5.0-9.0 [facility] CBC AUTO DIFFon 01-23-2023 BASO # 0.0 103/ul Normal 0.0-0.1 [facility] Comment on above: Performed By: #### I VINCE #### [facility] [address] [place] [address] Dr. Chi Keith Basophils/100 WBC (Bld) 0.4 % Normal 0.2-2.0 [facility] Comment on above: Performed By: #### I VINCE #### [facility] [address] [place] [address] Dr. Chi Keith EO # 0.1 103/ul Normal 0.0-0.7 [facility] Comment on above: Performed By: #### I VINCE #### [facility] [address] [place] [address] Dr. Chi Keith Eosinophils/100 WBC (Bld) 1.9 % Normal 0.9-7.0 [facility] Comment on above: Performed By: #### I VINCE #### [facility] [address] [place] [address] Dr. Chi Keith Erythrocyte distribution width (RBC) [Ratio] 13.9 % Normal 11.0-15.0 [facility] Comment on above: Performed By: #### I VINCE #### [facility] [address] [place] [address] Dr. Chi Keith Hematocrit (Bld) [Volume fraction] 40.5 % Normal 36.0-48.0 [facility] Comment on above: Performed By: #### I VICNE #### [facility] [address] [place] [address] Dr. Chi Keith Hemoglobin (Bld) [Mass/Vol] 12.9 g/dL Normal 12.0-16.0 [facility] Comment on above: Performed By: #### I VINCE #### [facility] [address] [place] [address] Dr. Chi Keith IG # 0.02 10e3/ul Normal 0.00-0.03 [facility] Comment on above: Performed By: #### I VINCE #### [facility] [address] [place] [address] Dr. Chi Keith IG % 0.3 % Normal 0.0-0.5 [facility] Comment on above: Performed By: #### I VINCE #### [facility] [address] [place] [address] Dr. Chi Keith LYMPH # 1.4 103/ul Normal 1.2-3.8 [facility] Comment on above: Performed By: #### I VINCE #### [facility] [address] [place] [address] Dr. Chi Keith Lymphocytes/100 WBC (Bld) 18.7 % Critically low 20.5-60.0 [facility] Comment on above: Performed By: #### I VINCE #### [facility] [address] [place] [address] Dr. Chi Keith MANUAL DIFF REQ NO Normal [facility] Comment on above: Performed By: #### I VINCE #### [facility] [address] [place] [address] Dr. Chi Keith MCH (RBC) [Entitic mass] 29.7 pg Normal 26.7-34.0 [facility] Comment on above: Performed By: #### I VINCE #### [facility] [address] [place] [address] Dr. Chi Keith MCHC (RBC) [Mass/Vol] 31.9 g/dL Normal 29.9-35.2 [facility] Comment on above: Performed By: #### I VINCE #### [facility] [address] [place] [address] Dr. Chi Keith MCV (RBC) [Entitic vol] 93.1 fL Normal 81.0-99.0 [facility] Comment on above: Performed By: #### I VINCE #### [facility] [address] [place] [address] Dr. Chi Keith MONO # 0.5 103/ul Normal 0.3-0.8 [facility] Comment on above: Performed By: #### I VINCE #### [facility] [address] [place] [address] Dr. Chi Keith Monocytes/100 WBC (Bld) 6.4 % Normal 1.7-12.0 [facility] Comment on above: Performed By: #### I VINCE #### [facility] [address] [place] [address] Dr. Chi Keith NEUT # 5.4 103/ul Normal 1.4-6.5 [facility] Comment on above: Performed By: #### I VINCE #### [facility] [address] [place] [address] Dr. Chi Keith Neutrophils/100 WBC (Bld) 72.3 % Normal 43.0-75.0 [facility] Comment on above: Performed By: #### I VINCE #### [facility] [address] [place] [address] Dr. Chi Keith Platelet mean volume (Bld) [Entitic vol] 10.1 fL Normal 9.5-13.5 [facility] Comment on above: Performed By: #### I VINCE #### [facility] [address] [place] [address] Dr. Chi Keith PLT 271 103/ul Normal 150-450 [facility] Comment on above: Performed By: #### I VINCE #### [facility] [address] [place] [address] Dr. Chi Keith RBC 4.35 106/ul Normal 4.20-5.40 [facility] Comment on above: Performed By: #### I VINCE #### [facility] [address] [place] [address] Dr. Chi Keith WBC 7.5 103/ul Normal 4.0-11.0 [facility] Comment on above: Performed By: #### I VINCE #### [facility] [address] [place] [address] Dr. Chi Keith FREE THYROXINE INDEX T7on FTI 3.94 Normal 1.30-4.50 [facility] Comment on above: Performed By: #### T 7, LIPID, TSH, CMP #### [facility] [address] [place] [address] Dr. Chi Keith T3U 31.0 % Normal 30.0-39.0 [facility] Comment on above: Performed By: #### T 7, LIPID, TSH, CMP #### [facility] [address] [place] [address] Dr. Chi Keith T4 [Mass/Vol] 12.70 ug/dL Normal 4.80-13.90 [facility] Comment on above: Performed By: #### T 7, LIPID, TSH, CMP #### [facility] [address] [place] [address] Dr. Chi Keith GLYCOHEMOGLOBIN A1Con 2022 ADA RECOMMENDATION SEE BELOW Normal [facility] Comment on above: Result Comment: ADA RECOMMENDED LIMIT 4.0 - 6.0 ADA THERAPEUTIC TARGET < 7.0 ACTION SUGGESTED > 7.0 Performed By: #### A 1C #### [facility] [address] [place] [address] Dr. Chi Keith Glucose [Mass/Vol] 120 mg/dL Normal [facility] Comment on above: Performed By: #### A 1C #### [facility] [address] [place] [address] Dr. Chi Keith HbA1c (Bld) [Mass fraction] 5.8 % Normal 4.5-6.2 [facility] Comment on above: Performed By: #### A 1C #### [facility] [address] [place] [address] Dr. Chi Keith IRONon 01-23-2023 Iron [Mass/Vol] 109.0 ug/dL Normal 50.0-170.0 [facility] Comment on above: Performed By: #### I VINCE #### [facility] [address] [place] [address] Dr. Chi Keith LIPID PROFILEon 01-23-2023 CHOL-HDL RATIO NORM SEE BELOW Normal [facility] Comment on above: Result Comment: 3.3 - 4.4 LOW RISK 4.4 - 7.1 AVERAGE RISK 7.1 - 11.0 MODERATE RISK >11.0 HIGH RISK Performed By: #### T 7, LIPID, TSH, CMP #### [facility] [address] [address] [address] Chi Keith Cholesterol [Mass/Vol] 209 mg/dL Critically high <=200 [facility] Comment on above: Performed By: #### T 7, LIPID, TSH, CMP #### [facility] [address] [place] [address] Dr. Chi Keith Cholesterol in HDL [Mass/Vol] 41 mg/dL Normal 40-60 [facility] Comment on above: Performed By: #### T 7, LIPID, TSH, CMP #### [facility] [address] [place] [address] Dr. Chi Keith Cholesterol in LDL [Mass/Vol] 135.0 mg/dL Normal [facility] Comment on above: Performed By: #### T 7, LIPID, TSH, CMP #### [facility] [address] [address] [address] Chi Keith Cholesterol.total/Cho lesterol in HDL [Mass ratio] 5.1 {ratio} Normal [facility] Comment on above: Performed By: #### T 7, LIPID, TSH, CMP #### [facility] [address] [place] [address] Dr. Chi Keith HDL NORMAL > or = 60 mg/dl - LO W CARDIOVASCULAR RISK <40 mg/dl - HIGH CARDIOVASCULAR RISK Normal [facility] Comment on above: Performed By: #### T 7, LIPID, TSH, CMP #### [facility] [address] [place] [address] Dr. Chi Keith LDL CALC NORMAL SEE BELOW Normal [facility] Comment on above: Result Comment: <100 mg/dl OPTIMAL 100 - 129 mg/dl NEAR OR ABOVE OPTIMAL 130 - 159 mg/dl BORDERLINE HIGH 160 - 189 mg/dl HIGH >190 mg/dl VERY HIGH Performed By: #### T 7, LIPID, TSH, CMP #### [facility] [address] [address] [address] Chi Keith Triglyceride [Mass/Vol] 165 mg/dL Critically high <=150 [facility] Comment on above: Performed By: #### T 7, LIPID, TSH, CMP #### [facility] [address] [address] [address] Chi Keith VLDL CALC 33.0 mg/dL Normal [facility] Comment on above: Performed By: #### T 7, LIPID, TSH, CMP #### [facility] [address] [address] [address] Chi Keith PROF 14(COMP METB)on 023 Albumin [Mass/Vol] 3.1 g/dL Critically low 3.4-5.0 [facility] Comment on above: Performed By: #### T 7, LIPID, TSH, CMP #### [facility] [address] [place] [address] Dr. Chi Keith Albumin/Globulin [Mass ratio] 0.8 {ratio} Normal [facility] Comment on above: Performed By: #### T 7, LIPID, TSH, CMP #### [facility] [address] [place] [address] Dr. Chi Keith ALP [Catalytic activity/Vol] 86 U/L Normal 46-116 [facility] Comment on above: Performed By: #### T 7, LIPID, TSH, CMP #### [facility] [address] [address] [address] Chi Keith ALT [Catalytic activity/Vol] 35 U/L Normal 14-59 [facility] Comment on above: Performed By: #### T 7, LIPID, TSH, CMP #### [facility] [address] [place] [address] Dr. Chi Keith Anion gap [Moles/Vol] 13.9 mmol/L Normal [facility] Comment on above: Performed By: #### T 7, LIPID, TSH, CMP #### [facility] [address] [place] [address] Dr. Chi Keith AST [Catalytic activity/Vol] 29 U/L Normal 15-37 [facility] Comment on above: Performed By: #### T 7, LIPID, TSH, CMP #### [facility] [address] [place] [address] Dr. Chi Keith Bilirubin [Mass/Vol] 0.6 mg/dL Normal 0.2-1.0 [facility] Comment on above: Performed By: #### T 7, LIPID, TSH, CMP #### [facility] [address] [place] [address] Dr. Chi Keith Calcium [Mass/Vol] 9.7 mg/dL Normal 8.5-10.1 [facility] Comment on above: Performed By: #### T 7, LIPID, TSH, CMP #### [facility] [address] [place] [address] Dr. Chi Keith Chloride [Moles/Vol] 106 mmol/L Normal 98-107 [facility] Comment on above: Performed By: #### T 7, LIPID, TSH, CMP #### [facility] [address] [place] [address] Dr. Chi Keith CO2 [Moles/Vol] 28.1 mmol/L Normal 21.0-32.0 [facility] Comment on above: Performed By: #### T 7, LIPID, TSH, CMP #### [facility] [address] [place] [address] Dr. Chi Keith Creatinine [Mass/Vol] 1.33 mg/dL Critically high 0.55-1.02 [facility] Comment on above: Performed By: #### T 7, LIPID, TSH, CMP #### [facility] [address] [place] [address] Dr. Chi Keith EGFR-AF LIBERIAN 49 mL/min/1.73m2 Critically low >=60 [facility] Comment on above: Performed By: #### T 7, LIPID, TSH, CMP #### [facility] [address] [place] [address] Dr. Chi Keith EGFR-NON AF LIBERIAN 41 mL/min/1.73m2 Critically low >=60 [facility] Comment on above: Performed By: #### T 7, LIPID, TSH, CMP #### [facility] [address] [address] [address] Chi Keith Globulin (S) [Mass/Vol] 3.8 g/dL Normal [facility] Comment on above: Performed By: #### T 7, LIPID, TSH, CMP #### [facility] [address] [address] [address] Chi Keith Glucose [Mass/Vol] 116 mg/dL Critically high 74-106 [facility] Comment on above: Performed By: #### T 7, LIPID, TSH, CMP #### [facility] [address] [place] [address] Dr. Chi Keith Potassium [Moles/Vol] 4.0 mmol/L Normal 3.5-5.1 [facility] Comment on above: Performed By: #### T 7, LIPID, TSH, CMP #### [facility] [address] [place] [address] Dr. Chi Keith Protein [Mass/Vol] 6.9 g/dL Normal 6.4-8.2 [facility] Comment on above: Performed By: #### T 7, LIPID, TSH, CMP #### [facility] [address] [place] [address] Dr. Chi Keith Sodium [Moles/Vol] 144 mmol/L Normal 136-145 [facility] Comment on above: Performed By: #### T 7, LIPID, TSH, CMP #### [facility] [address] [address] [address] Chi Keith Urea nitrogen [Mass/Vol] 20.0 mg/dL Critically high 7.0-18.0 [facility] Comment on above: Performed By: #### T 7, LIPID, TSH, CMP #### [facility] [address] [place] [address] Dr. Chi Keith Urea nitrogen/Creatinine [Mass ratio] 15.0 mg/mg Normal [facility] Comment on above: Performed By: #### T 7, LIPID, TSH, CMP #### [facility] [address] [place] [address] Dr. Chi Keith TSHon 01-23-2023 TSH 0.995 uIU/mL Normal 0.358-3.740 [facility] Comment on above: Performed By: #### T 7, LIPID, TSH, CMP #### [facility] [address] [place] [address] Dr. Chi Keith Covid-19 PCR ([facility])on SARS-CoV-2 (COVID-19) RNA ALEXANDREA+probe Ql (Unsp spec) [...] for this test is supported by the [employer] of [employer] and Human Service's declaration that [...] I VINCE #### [facility] [address] [place] [address] Dr. Chi Keith INFLUENZA A AND B AGon 08-13 INFLUENZA A AG Negative Normal NEGATIVE SEE COMMENT [facility] Comment on above: Performed By: #### I VINCE #### [facility] [address] [place] [address] Dr. Chi Keith INFLUENZA B AG Negative Normal NEGATIVE SEE COMMENT [facility] Comment on above: Performed By: #### I VINCE #### [facility] [address] [place] [address] Dr. Chi Keith INTERNAL CONTROLS Within Normal Limits Normal Wi thin Normal Limits [facility] Comment on above: Performed By: #### I VINCE #### [facility] [address] [place] [address] Dr. Chi Keith CARDIAC [place] ADMITon 022 CK [Catalytic activity/Vol] 34 U/L Normal 26-192 [facility] Comment on above: Performed By: #### I VINCE #### [facility] [address] [place] [address] Dr. Chi Keith CK.MB [Mass/Vol] 0.71 ng/mL Normal <=3.60 [facility] Comment on above: Performed By: #### I VINCE #### [facility] [address] [place] [address] Dr. Chi Keith HSTROP 11.6 pg/mL Normal 4.0-51.3 [facility] Comment on above: Result Comment: CUT- OFF POINTS HAVE BEEN ESTABLISHED BASED ON THE FOURTH UNIVERSAL DEFINITIONS OF MYOCARDIAL INFARCTION. THE UPPER REFERENCE LIMIT (URL) OF TROPONIN, DEFINED THE 99TH PERCENTILE OF cTnI DISTRIBUTION IN A REFERENCE POPULATION, HAS BEEN CONFIRMED THE DECISION THRESHOLD FOR [place] DIAGNOSIS. Performed By: #### I VINCE #### [facility] [address] [place] [address] Dr. Chi Keith FAUSTO 57 ng/mL Normal 9-82 [facility] Comment on above: Performed By: #### I VINCE #### [facility] [address] [place] [address] Dr. Chi Keith CBC AUTO DIFFon 04-09-2022 BASO # 0.0 103/ul Normal 0.0-0.1 [facility] Comment on above: Performed By: #### I VINCE #### [facility] [address] [place] [address] Dr. Chi Keith Basophils/100 WBC (Bld) 0.4 % Normal 0.2-2.0 [facility] Comment on above: Performed By: #### I VINCE #### [facility] [address] [place] [address] Dr. Chi Keith EO # 0.1 103/ul Normal 0.0-0.7 [facility] Comment on above: Performed By: #### I VINCE #### [facility] [address] [place] [address] Dr. Chi Keith Eosinophils/100 WBC (Bld) 0.7 % Critically low 0.9-7.0 [facility] Comment on above: Performed By: #### I VINCE #### [facility] [address] [place] [address] Dr. Chi Keith Erythrocyte distribution width (RBC) [Ratio] 14.5 % Normal 11.0-15.0 [facility] Comment on above: Performed By: #### I VINCE #### [facility] [address] [place] [address] Dr. Chi Keith Hematocrit (Bld) [Volume fraction] 42.1 % Normal 36.0-48.0 [facility] Comment on above: Performed By: #### I VINCE #### [facility] [address] [place] [address] Dr. Chi Keith Hemoglobin (Bld) [Mass/Vol] 13.5 g/dL Normal 12.0-16.0 [facility] Comment on above: Performed By: #### I VINCE #### [facility] [address] [place] [address] Dr. Chi Keith IG # 0.03 10e3/ul Normal 0.00-0.03 [facility] Comment on above: Performed By: #### I VINCE #### [facility] [address] [place] [address] Dr. Chi Keith IG % 0.3 % Normal 0.0-0.5 [facility] Comment on above: Performed By: #### I VINCE #### [facility] [address] [place] [address] Dr. Chi Keith LYMPH # 1.8 103/ul Normal 1.2-3.8 [facility] Comment on above: Performed By: #### I VINCE #### [facility] [address] [place] [address] Dr. Chi Keith Lymphocytes/100 WBC (Bld) 18.3 % Critically low 20.5-60.0 [facility] Comment on above: Performed By: #### I VINCE #### [facility] [address] [place] [address] Dr. Chi Keith MANUAL DIFF REQ NO Normal [facility] Comment on above: Performed By: #### I VINCE #### [facility] [address] [address] [address] Chi Keith MCH (RBC) [Entitic mass] 30.5 pg Normal 26.7-34.0 [facility] Comment on above: Performed By: #### I VINCE #### [facility] [address] [address] [address] Chi Keith MCHC (RBC) [Mass/Vol] 32.1 g/dL Normal 29.9-35.2 [facility] Comment on above: Performed By: #### I VINCE #### [facility] [address] [place] [address] Dr. Chi Keith MCV (RBC) [Entitic vol] 95.2 fL Normal 81.0-99.0 [facility] Comment on above: Performed By: #### I VINCE #### [facility] [address] [place] [address] Dr. Chi Keith MONO # 0.6 103/ul Normal 0.3-0.8 [facility] Comment on above: Performed By: #### I VINCE #### [facility] [address] [place] [address] Dr. Chi Keith Monocytes/100 WBC (Bld) 6.3 % Normal 1.7-12.0 [facility] Comment on above: Performed By: #### I VINCE #### [facility] [address] [place] [address] Dr. Chi Keith NEUT # 7.5 103/ul Critically high 1.4-6.5 [facility] Comment on above: Performed By: #### I VINCE #### [facility] [address] [place] [address] Dr. Chi Kieth Neutrophils/100 WBC (Bld) 74.0 % Normal 43.0-75.0 [facility] Comment on above: Performed By: #### I VINCE #### [facility] [address] [place] [address] Dr. Chi Keith Platelet mean volume (Bld) [Entitic vol] 9.3 fL Critically low 9.5-13.5 [facility] Comment on above: Performed By: #### I VINCE #### [facility] [address], [place] [address] Dr. Chi Keith PLT 316 103/ul Normal 150-450 [facility] Comment on above: Performed By: #### I VINCE #### [facility] [address], [place] [address] Dr. Chi Keith RBC 4.42 106/ul Normal 4.20-5.40 [facility] Comment on above: Performed By: #### I VINCE #### [facility] [address], [place] [address] Dr. Chi Keith WBC 10.1 103/ul Normal 4.0-11.0 [facility] Comment on above: Performed By: #### I VINCE #### [facility] [address] [address] FACIAL BONES WO [...] SUNIL THOMPSON Date: 2022-04-09 15:58 Normal [facility] CT HEAD WO CONon 04-09-2022 CT HEAD [...] 2 Bilirubin Ql (U) MODERATE Abnormal NEGATIVE [facility] Comment on above: Performed By: #### I VINCE #### [facility] [address] [place] [address] Dr. Chi Keith Clarity (U) CLEAR Normal CLEAR [facility] Comment on above: Performed By: #### I VINCE #### [facility] [address] [place] [address] Dr. Chi Keith Color (U) DK. YELLOW Normal YELLOW [facility] Comment on above: Performed By: #### I VINCE #### [facility] [address] [place] [address] Dr. Chi Keith ERUAHD A micrscopic examina tion will be performed if indicated. Normal [facility] Comment on above: Performed By: #### I VINCE #### [facility] [address] [place] [address] Dr. Chi Keith Glucose Ql (U) Negative Normal NEGATIVE [facility] Comment on above: Performed By: #### I VINCE #### [facility] [address] [place] [address] Dr. Chi Keith Hemoglobin Ql (U) TRACE-INTACT Abnormal NEGATIVE [facility] Comment on above: Performed By: #### I VINCE #### [facility] [address] [place] [address] Dr. Chi Keith Ketones Ql (U) 15 mg/dl Abnormal NEGATIVE [facility] Comment on above: Performed By: #### I VINCE #### [facility] [address] [place] [address] Dr. Chi Keith LEUKOCYTES Negative Normal NEGATIVE [facility] Comment on above: Performed By: #### I VINCE #### [facility] [address] [place] [address] Dr. Chi Keith Nitrite Ql (U) Negative Normal NEGATIVE [facility] Comment on above: Performed By: #### I VINCE #### [facility] [address] [place] [address] Dr. Chi Keith pH (U) 5.5 [pH] Normal 5-9 [facility] Comment on above: Performed By: #### I VINCE #### [facility] [address] [place] [address] Dr. Chi Keith Protein (U) [Mass/Vol] 30 mg/dL Abnormal NEGATIVE/ TRACE [facility] Comment on above: Performed By: #### I VINCE #### [facility] [address] [place] [address] Dr. Chi Keith SPEC GRAVITY >=1.030 Abnormal 1.005-<=1.[address] [place] [address] Comment on above: Performed By: #### I VINCE #### [facility] [address] [place] [address] Dr. Chi Keith UR MICRO IND INDICATED Normal [facility] Comment on above: Performed By: #### I VINCE #### [facility] [address] [place] [address] Dr. Chi Keith Urobilinogen Qn (U) 1.0 {Mani'U}/dL Normal 0.2 - 1. 0 [facility] Comment on above: Performed By: #### I VINCE #### [facility] [address] [place] [address] Dr. Chi Keith PROF 14(COMP METB)on 022 Albumin [Mass/Vol] 3.3 g/dL Critically low 3.4-5.0 [facility] [place] Comment on above: Performed By: #### C MADM, CMP, TSH #### [facility] [address] [address] [address] Chi Keith Albumin/Globulin [Mass ratio] 0.9 {ratio} Normal [facility] Comment on above: Performed By: #### C MADM, CMP, TSH #### [facility] [address] [address] [address] Chi Keith ALP [Catalytic activity/Vol] 87 U/L Normal 46-116 [facility] Comment on above: Performed By: #### C MADM, CMP, TSH #### [facility] [address] [place] [address] Dr. Chi Keith ALT [Catalytic activity/Vol] 34 U/L Normal 14-59 [facility] Comment on above: Performed By: #### C MADM, CMP, TSH #### [facility] [address] [address] [address] Chi Keith Anion gap [Moles/Vol] 12.2 mmol/L Normal [facility] [place] Comment on above: Performed By: #### C MADM, CMP, TSH #### [facility] [address] [place] [address] Dr. Chi Keith AST [Catalytic activity/Vol] 16 U/L Normal 15-37 [facility] Comment on above: Performed By: #### C MADM, CMP, TSH #### [facility] [address] [address] [address] Chi Keith Bilirubin [Mass/Vol] 0.6 mg/dL Normal 0.2-1.0 [facility] Comment on above: Performed By: #### C MADM, CMP, TSH #### [facility] [address] [address] [address] Chi Keith Calcium [Mass/Vol] 9.8 mg/dL Normal 8.5-10.1 [facility] Comment on above: Performed By: #### C MADM, CMP, TSH #### [facility] [address] [address] [address] Chi Keith Chloride [Moles/Vol] 106 mmol/L Normal 98-107 [facility] Comment on above: Performed By: #### C MADM, CMP, TSH #### [facility] [address] [address] [address] Chi Keith CO2 [Moles/Vol] 27.9 mmol/L Normal 21.0-32.0 [facility] Comment on above: Performed By: #### C MADM, CMP, TSH #### [facility] [address] [place] [address] Dr. Chi Keith Creatinine [Mass/Vol] 1.13 mg/dL Critically high 0.55-1.02 [facility] Comment on above: Performed By: #### C MADM, CMP, TSH #### [facility] [address] [place] [address] Dr. Chi Keith EGFR-AF LIBERIAN =60 Normal >=60 [facility] Comment on above: Performed By: #### C MADM, CMP, TSH #### [facility] [address] [place] [address] Dr. Chi Keith EGFR-NON AF LIBERIAN 49 mL/min/1.73m2 Critically low >=60 [facility] Comment on above: Performed By: #### C MADM, CMP, TSH #### [facility] [address] [place] [address] Dr. Chi Keith Globulin (S) [Mass/Vol] 3.8 g/dL Normal [facility] Comment on above: Performed By: #### C MADM, CMP, TSH #### [facility] [address] [place] [address] Dr. Chi Keith Glucose [Mass/Vol] 115 mg/dL Critically high 74-106 [facility] Comment on above: Performed By: #### C MADM, CMP, TSH #### [facility] [address] [place] [address] Dr. Chi Keith Potassium [Moles/Vol] 4.1 mmol/L Normal 3.5-5.1 [facility] Comment on above: Performed By: #### C THERESE TORRES, TSH #### [facility] [address] [place] [address] Dr. Chi Keith Protein [Mass/Vol] 7.1 g/dL Normal 6.4-8.2 [facility] Comment on above: Performed By: #### C THERESE TORRES, TSH #### [facility] [address] [place] [address] Dr. Chi Keith Sodium [Moles/Vol] 142 mmol/L Normal 136-145 [facility] Comment on above: Performed By: #### C THERESE TORRES, TSH #### [facility] [address] [place] [address] Dr. Chi Keith Urea nitrogen [Mass/Vol] 21.0 mg/dL Critically high 7.0-18.0 [facility] Comment on above: Performed By: #### C THERESE TORRES, TSH #### [facility] [address] [place] [address] Dr. Chi Keith Urea nitrogen/Creatinine [Mass ratio] 18.6 mg/mg Normal [facility] Comment on above: Performed By: #### C THERESE TORRES, TSH #### [facility] [address] [place] [address] Dr. Chi Keith PROTIMEon 04-09-2022 INR Coag (PPP) [Relative time] 0.97 {INR} Normal [facility] Comment on above: Performed By: #### I VINCE #### [facility] [address] [place] [address] Dr. Chi Keith INR GUIDELINES SEE BELOW Normal [facility] Comment on above: Result Comment: LISA RED INR: 2.0 - 3.0 CONDITIONS NOT LISTED BELOW 2.5 - 3.5 FOR PROSTHETIC HEART VALVE REPLACEMENT 2.5 - 3.5 RECURRENT THROMBOSIS Performed By: #### I VINCE #### [facility] [address] [place] [address] Dr. Chi Keith PT Coag (PPP) [Time] 10.5 s Normal 9.0-11.6 [facility] Comment on above: Performed By: #### I VINCE #### [facility] [address] [place] [address] Dr. Chi Keith PTTon 04-09-2022 aPTT Coag (Bld) [Time] 23.1 s Normal 22.3-36.2 [facility] Comment on above: Performed By: #### I VINCE #### [facility] [address] [place] [address] Dr. Chi Keith TSHon 04-09-2022 TSH 0.511 uIU/mL Normal 0.358-3.740 [facility] Comment on above: Performed By: #### C MADM, CMP, TSH #### [facility] [address] [place] [address] Dr. Chi Keith URINE MICROSCOPIC ONLYon BACTERIA TRACE Abnormal NONE SEEN [facility] Comment on above: Performed By: #### I VINCE #### [facility] [address] [place] [address] Dr. Chi Keith Bacteria identified Cx Nom (U) NOT INDICATED Normal [facility] Comment on above: Performed By: #### I VINCE #### [facility] [address] [place] [address] Dr. Chi Keith CAST SEEN Abnormal NONE SEEN [facility] Comment on above: Performed By: #### I VINCE #### [facility] [address] [place] [address] Dr. Chi Keith Crystals LM Nom (Urine sed) NONE SEEN Normal NONE SEEN [facility] Comment on above: Performed By: #### I VINCE #### [facility] [address] [place] [address] Dr. Chi Keith Epithelial cells LM Ql (Urine sed) FEW Abnormal NONE SEEN /RARE [facility] Comment on above: Performed By: #### I VINCE #### [facility] [address] [place] [address] Dr. Chi Keith HYALINE CAST RARE Normal [facility] Comment on above: Performed By: #### I VINCE #### [facility] [address] [address] [address] Chi Keith MUCOUS SMALL Abnormal NONE SEEN [facility] Comment on above: Performed By: #### I VINCE #### [facility] [address] [address] [address] Chi Keith RBC 2-5 Abnormal 0-2 [facility] Comment on above: Performed By: #### I VINCE #### [facility] [address] [address] [address] Chi Keith WBC 0-2 Abnormal NONE SEEN [facility] Comment on above: Performed By: #### I VINCE #### [facility] [address] [address] [address] Chi Keith Cardiovascular Lab Reporton 05-11-2017 Cardiovascular Lab Report [facility] Patient Name: Melissa Dubose MR #: [id number] Physician: Justine Parks M.D.Department of Service Date: 05/10/2017Medicine Birthdate: 2Division of Room #: [facility] CardiovascularServicesiv [facility] [place], [place] [address]Tbnly Fax Cardiovascular Laboratory ReportINDICATION:Melissa Dubose is a 56-year-old lady known to have coronary disease, statuspost bypass surgery in the past. She was evaluated in Cardiology Clinicbecause of recent episodes of syncope. She also described chest pain. Astress test showed no evidence of ischemia, but a low ejection fraction of46%. Because of that, she is referred for cardiac catheterization.PROCEDURE: 1. Bilateral selective coronary angiography.2. Graft angiography.3. Limited right femoral angiography.METHODS:Proced ure was explained to the patient with risks and benefits. She signedinformed consent. 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 Theright groin area was prepped and draped in usual fashion. Usingmicropuncture technique, the right common femoral artery was accessed. Theinner cannula was advanced. Limited right femoral angiography wasperformed followed by upsizing to a 6-Malaysian x 11 cm sheath. Bilateralselective renal angiography was then performed using 6-Malaysian JL4 and KZ8nzmtxphbod catheters. The 6-Malaysian JR4 diagnostic catheter was used toselectively engage the saphenous venous graft to the OM and the radialgraft to the PDA. Angiography was performed. Catheter was exchanged to a6-Malaysian CYNTHIA catheter, which was used to selectively [...] 3-vessel coronary artery disease.2. Patent 3/3 bypass grafts.RECOMMENDATIONS:[facility] and follow up in Cardiology Clinic.Electronically Signed by:Justine Parks M.D. 06/01/2017 08:16 A Justine Parks M.D.Date Dict: 05/10/2017/01:01 P/Justine Parks M.D.Date Trans: 05/11/2017 09:53 [id number] c: Madison Magana M.D. [address], [facility] [place] [address] [facility] Vital Signs Date Time Vital Sign Value Performing Clinician Facility 04-22-2025 12:27-0400 Body mass index (BMI) [Ratio] 31.8 kg/m2 Chet Furlong DO Work Phone: [facility] [employer] 04-22-2025 12:27-0400 Body temperature 97.59 [degF] Chet Furlong DO Work Phone: [facility] [facility] 04-22-2025 12:27-0400 Body weight 100.52 kg [facility] 04-22-2025 12:27-0400 Diastolic blood pressure 62 mm[Hg] Che[facility]long [facility] 04-22-2025 12:27-0400 Heart rate 108 /min Che[facility] Furlong DO [facility] 04-22-2025 12:27-0400 Respiratory rate 18 /min Chet Furlong [facility] 04-22-2025 12:27-0400 SaO2% (BldA) [Mass fraction] 94 % Chet Furlong DO Work Phone: [facility] [employer] 04-22-2025 12:27-0400 Systolic blood pressure 99 mm[Hg] Chet Furlong [facility] 04-16-2025 15:33-0400 Body mass index (BMI) [Ratio] 32.14 kg/m2 Chet Furlong DO Work Phone: [facility] [employer] [facility] 04-16-2025 15:33-0400 Body temperature 97.59 [degF] Chet Furlong DO Work Phone: [facility] [facility] 04-16-2025 15:33-0400 Body weight 101.61 kg Chet Furlong DO Work Phone: [facility] [employer] [facility] 04-16-2025 15:33-0400 Diastolic blood pressure 46 mm[Hg] Chet Furlong DO Work Phone: [facility] [employer] [facility] 04-16-2025 15:33-0400 Heart rate 76 /min Chet Furlong DO Work Phone: [facility] [facility] 04-16-2025 15:33-0400 Respiratory rate 16 /min Chet Furlong DO Work Phone: [facility] 04-16-2025 15:33-0400 SaO2% (BldA) [Mass fraction] 97 % Chet Furlong DO Work Phone: [facility] [employer] [facility] 04-16-2025 15:33-0400 Systolic blood pressure 80 mm[Hg] Chet Furlong DO Work Phone: [facility] [employer] [facility] 04-13-2025 10:08-0400 Body mass index (BMI) [Ratio] 33.27 kg/m2 Chet Furlong DO Work Phone: [facility] [employer] [facility] 04-13-2025 10:08-0400 Body temperature 97.3 [degF] Chet Furlong DO Work Phone: [facility] 04-13-2025 10:08-0400 Body weight 105.19 kg Chet Furlong DO Work Phone: [facility] [employer] [facility] 04-13-2025 10:08-0400 Diastolic blood pressure 60 mm[Hg] Chet Furlong DO Work Phone: [employer] 04-13-2025 10:08-0400 Heart rate 92 /min Chet Wonglong DO [facility] Phone[email or web address] 04-13-2025 10:08-0400 Respiratory rate 16 /min Chet Wonglong DO Work Phone[email or web address] 04-13-2025 10:08-0400 SaO2% (BldA) [Mass fraction] 98 % Chet Wonglong DO Work Phone: [employer] 04-13-2025 10:08-0400 Systolic blood pressure 90 mm[Hg] Chet Wonglong DO Work Phone: [email or web address] 04-07-2025 09:16-0400 SaO2% (BldA) [Mass fraction] 94 % Glenny Ahmadi MD Work Phone: [facility] 04-07-2025 08:55-0400 Body temperature 97.7 [degF] Glenny Ahmadi MD Work Phone: [facility] 04-07-2025 08:55-0400 Diastolic blood pressure 78 mm[Hg] Glenny Ahmadi MD Work Phone: [facility] 04-07-2025 08:55-0400 Heart rate 87 /min Glenny Ahmadi MD Work Phone: [facility] 04-07-2025 08:55-0400 Respiratory rate 16 /min Glenny Ahmadi MD Work Phone: [facility] 04-07-2025 08:55-0400 Systolic blood pressure 112 mm[Hg] Glenny Ahmadi MD Work Phone: [facility] 04-07-2025 04:51-0400 Body mass index (BMI) [Ratio] 36.57 kg/m2 Glenny Ahmadi MD Work Phone: [facility] 04-07-2025 04:51-0400 Body weight 115.6 kg Glenny Ahmadi MD Work Phone: [facility] 03-26-2025 09:23-0400 Body temperature 37.0 degrees Celsius [facility] Comment on above: Performed By: #### [id number] ####DERRICK Hall ([id number])[facility] ([facility])[address] [place] [address] 03-23-2025 08:51-0400 Body temperature 37.0 degrees Celsius [facility] Comment on above: Performed By: #### [id number] ####DERRICK Hall ([id number])[facility] ([facility])[address] [place] [address] 03-23-2025 08:51-0400 SaO2% (BldA) [Mass fraction] 92 % [facility] Comment on above: Performed By: #### [id number] ####DERRICK Hall ([id number])[facility] ([facility])[address] [place] [address] 03-22-2025 11:00-0400 Body height 177.8 cm Glenny Ahmadi MD Work Phone: [facility] 09-24-2024 16:30-0500 Blood Pressure Location Benjy JOHNSON [facility] 09-24-2024 16:30-0500 Body temperature 97.7 [degF] Benjy JOHNSON [facility] 09-24-2024 16:30-0500 Diastolic blood pressure 70 mm[Hg] Benjy JOHNSON [facility] 09-24-2024 16:30-0500 Heart rate 78 /min Benjy JOHNSON [facility] 09-24-2024 16:30-0500 Mean blood pressure 91 mm[Hg] Benjy JOHNSON [facility] 09-24-2024 16:30-0500 SaO2% (BldA) [Mass fraction] 95 % Benjy [facility]NSON [facility] 09-24-2024 16:30-0500 Systolic blood pressure 134 mm[Hg] Benjy COOK [facility] 09-24-2024 15:43-0500 Heart rate 77 /min Benjy COOK [facility] 09-24-2024 15:43-0500 SaO2% (BldA) [Mass fraction] 93 % Benjy [facility]NSON [facility] 09-24-2024 15:43-0500 Diastolic blood pressure 69 mm[Hg] Benjy COOK [facility] 09-24-2024 15:43-0500 Mean blood pressure 85 mm[Hg] Benjy COOK [facility] 09-24-2024 15:43-0500 Systolic blood pressure 115 mm[Hg] Benjy [facility]OHNSON [facility] 09-24-2024 15:43-0500 Blood Pressure Location Benjy COOK [facility] 09-24-2024 15:43-0500 Body temperature 97.52 [degF] Benjy COOK [facility] 09-24-2024 15:30-0500 Blood Pressure Location Benjy COOK [facility] 09-24-2024 15:30-0500 Body temperature 97.34 [degF] Benjy COOK [facility] 09-24-2024 15:30-0500 Diastolic blood pressure 73 mm[Hg] Ebnjy COOK [facility] 09-24-2024 15:30-0500 Heart rate 69 /min Benjy COOK [facility] 09-24-2024 15:30-0500 Mean blood pressure 89 mm[Hg] [facility]jy [facility] 09-24-2024 15:30-0500 Respiratory rate 17 /min Benjy [facility]NSON [facility] 09-24-2024 15:30-0500 SaO2% (BldA) [Mass fraction] 92 % Benjy [facility]ON [facility] 09-24-2024 15:30-0500 Systolic blood pressure 122 mm[Hg] Benjy [facility]ON [facility] 09-24-2024 15:15-0500 Mean blood pressure 95 mm[Hg] Benjy [facility]ON [facility] 09-24-2024 15:15-0500 Respiratory rate 16 /min Benjy [facility]NSON [facility] 09-24-2024 15:10-0500 Respiratory rate 17 /min Benjy JOHNSON [facility] 09-24-2024 11:45-0500 Mean blood pressure 87 mm[Hg] Benjy [facility]ON [facility] 09-24-2024 11:43-0500 Respiratory rate 20 /min Benjy [facility]NSON [facility] 09-24-2024 11:43-0500 Body temperature 97.7 [degF] Benjy [facility]ON [facility] 09-24-2024 11:43-0500 Mean blood pressure 91 mm[Hg] Benjy [facility]ON [facility] 09-17-2024 13:33-0500 Heart rate 61 /min Benjy [facility]NSON [facility] 09-17-2024 13:33-0500 SaO2% (BldA) [Mass fraction] 97 % Benjy COOK [facility] 09-17-2024 13:33-0500 Diastolic blood pressure 73 mm[Hg] Benjy COOK [facility] 09-17-2024 13:33-0500 Mean blood pressure 88 mm[Hg] Benjy COOK [facility] 09-17-2024 13:33-0500 Systolic blood pressure 118 mm[Hg] Benjy COOK [facility] 09-17-2024 13:32-0500 Heart rate 63 /min Benjy COOK [facility] 09-17-2024 13:32-0500 SaO2% (BldA) [Mass fraction] 96 % Benjy COOK [facility] 09-17-2024 13:32-0500 Respiratory rate 18 /min Benjy COOK [facility] 09-17-2024 13:32-0500 Diastolic blood pressure 84 mm[Hg] Benjy COOK [facility] 09-17-2024 13:32-0500 Mean blood pressure 99 mm[Hg] Benjy COOK [facility] 09-17-2024 13:32-0500 Systolic blood pressure 129 mm[Hg] Benjy COOK [facility] 08-20-2024 15:06-0500 Diastolic blood pressure 68 mm[Hg] Benjy COOK [facility] 08-20-2024 15:06-0500 Heart rate 80 /min Benjy COOK [facility] 08-20-2024 15:06-0500 Respiratory rate 16 /min Benjy COOK [facility] 08-20-2024 15:06-0500 Systolic blood pressure 104 mm[Hg] Benjy JOHNSON [facility] 06-02-2024 13:56-0400 Diastolic blood pressure 78 mm[Hg] Ashley Orzech [facility] 06-02-2024 13:56-0400 Heart rate 56 /min Ashley Orzech [facility] 06-02-2024 13:56-0400 Respiratory rate 16 /min Ashley Orzech [facility] 06-02-2024 13:56-0400 Systolic blood pressure 126 mm[Hg] Ashley Orzech [facility] 11-25-2023 11:01-0400 Body temperature 97.7 [degF] MD Madison Magana Work Phone: [facility] 11-25-2023 11:01-0400 Diastolic blood pressure 65 mm[Hg] MD Madison Magana Work Phone: [facility] 11-25-2023 11:01-0400 Heart rate 90 /min MD Madison Magana Work Phone: [facility] 11-25-2023 11:01-0400 Respiratory rate 16 /min MD Madison Magana Work Phone: [facility] 11-25-2023 11:01-0400 SaO2% (BldA) [Mass fraction] 97 % MD Madison Magana Work Phone: [facility] 11-25-2023 11:01-0400 Systolic blood pressure 108 mm[Hg] MD Madison Magana Work Phone: [facility] 11-25-2023 06:00-0400 Body weight 103 kg MD Madison Magana Work Phone: [facility] 11-24-2023 20:00-0400 Inhaled oxygen flow rate 2 L/min MD Madison Magana Work Phone: [facility] 11-21-2023 14:58-0400 Body height 177.8 cm MD Madison Magana Work Phone: [facility] Encounters Encounter Date Encounter Type Care Provider Facility Start: 04-21-2025 End: 04-22-2025 ambulatory Chet Longo MST Work Phone: [facility] Comment on above: Malignant neoplasm o f unspecified part of right bronchus or lung (CMS-HCC) (Primary Dx); Chronic obstructive pulmonary disease, unspecified COPD type (CMS-HCC); Acute respiratory failure with hypoxia (CMS-HCC); Chronic heart failure, unspecified heart failure type (CMS-HCC); Muscle weakness (generalized); Other fatigue; Unsteadiness on feet; Diabetic polyneuropathy associated with type 2 diabetes mellitus (CMS-HCC); Nausea and vomiting, unspecified vomiting type Start: 04-16-2025 End: 04-16-2025 ambulatory Chet Longo MST Work Phone: [facility] Comment on above: Hypotension, unspeci fied hypotension type (Primary Dx); Chronic heart failure, unspecified heart failure type (CMS-HCC); Primary hypertension; Chronic obstructive pulmonary disease, unspecified COPD type (CMS-HCC); Malignant neoplasm of unspecified part of right bronchus or lung (CMS-HCC) Start: 04-13-2025 End: 04-17-2025 ambulatory Chet Longo MST Work Phone: [facility] Comment on above: Malignant neoplasm o f unspecified part of right bronchus or lung (CMS-HCC) (Primary Dx); Nausea and vomiting, unspecified vomiting type; Chronic obstructive pulmonary disease, unspecified COPD type (CMS-HCC); Muscle weakness (generalized); Unsteadiness on feet; Gastrointestinal hemorrhage, unspecified gastrointestinal hemorrhage type; Atrial fibrillation, unspecified type ([facility]-HCC) Start: 04-07-2025 End: 04-21-2025 Continuing Care Chet Longo DO Work Phone: [facility] Comment on above: Acute respiratory fa ilure with hypoxia ([facility]-HCC) (Primary Dx); Malignant neoplasm of unspecified part of right bronchus or lung ([facility]-HCC); Chronic obstructive pulmonary disease, unspecified COPD type (CMS-HCC); Diabetic polyneuropathy associated with type 2 diabetes mellitus (CMS-HCC); Muscle weakness (generalized); Chronic heart failure, unspecified heart failure type ([facility]-HCC); Primary hypertension; Atrial fibrillation, unspecified type ([facility]); Unsteadiness on feet; Atherosclerosis of [place] coronary artery of [place] heart without angina pectoris; Noninfectious gastroenteritis, unspecified type; Pneumothorax, unspecified type; Cigarette nicotine dependence with nicotine-induced disorder; Gastroesophageal reflux disease without esophagitis; Ischemic cardiomyopathy Start: 04-01-2025 End: 04-01-2025 ambulatory [facility] Start: 04-01-2025 End: 04-01-2025 Subsequent hospital visit by physician Cierra Milton [facility] Comment on above: Arrived Encounter for antine oplastic radiation therapy; Malignant neoplasm of right main bronchus (Multi) Start: 04-01-2025 End: 04-01-2025 ambulatory [facility] Start: 03-31-2025 End: 03-31-2025 ambulatory [facility] Start: 03-31-2025 End: 03-31-2025 Subsequent hospital visit by physician Carlitos Thompson Onc Tx Plan [facility] Comment on above: Arrived Start: 03-30-2025 End: 03-30-2025 Subsequent hospital visit by physician Carlitos Bb Ct Simulator [facility] Comment on above: Malignant neoplasm o f upper lobe, right bronchus or lung (Primary Dx) Start: 03-30-2025 End: 03-30-2025 ambulatory [facility] Start: 03-30-2025 End: 03-30-2025 Subsequent hospital visit by physician Rad External Film [facility] Comment on above: Malignant neoplasm o f upper lobe, right bronchus or lung Start: 03-29-2025 End: 03-29-2025 Evaluation and management of inpatient [facility] Start: 03-22-2025 End: 04-07-2025 Evaluation and management of inpatient Glenny Ahmadi MD Work Phone: [facility] Start: 02-09-2025 End: 02-10-2025 ambulatory [facility] Start: 12-04-2024 End: 12-04-2024 ambulatory [facility] Start: 09-24-2024 End: 09-24-2024 Admission to same day surgery center Benjy J[facility]NSON [facility] Start: 09-24-2024 End: 09-24-2024 ambulatory Benjy JOHNSON Facility:[facility] Start: 09-17-2024 End: 09-17-2024 ambulatory Benjy JOHNSON Facility:[facility] Start: 09-17-2024 End: 09-17-2024 Patient encounter procedure Benyj JOHNSON [facility] Start: 08-24-2024 End: 08-24-2024 ambulatory [facility] Start: 08-24-2024 End: 08-24-2024 Encounter for preprocedural cardiovascular examination [facility] Start: 08-20-2024 End: 08-20-2024 Lab Drop off Benjy JOHNSON [facility] Start: 08-20-2024 End: 08-20-2024 ambulatory Benjy JOHNSON Facility:[facility] Start: 08-20-2024 End: 08-20-2024 Patient encounter procedure Benjy JOHNSON [facility] Start: 07-29-2024 End: 07-29-2024 ambulatory [facility] Start: 06-02-2024 End: 06-02-2024 ambulatory Ashley X Orzech Facility:[facility] Start: 06-02-2024 End: 06-02-2024 Lab Drop off Ashley X Orzech [facility] Start: 06-02-2024 End: 06-02-2024 ambulatory Ashley X Orzech Facility: [place] Start: 06-02-2024 End: 06-02-2024 Patient encounter procedure Ashley X Orcandich [facility] Start: 05-01-2024 End: 05-01-2024 ambulatory [facility] [place] Start: 04-01-2024 ambulatory Ashley Tariq Facility: [place] Start: 02-19-2024 End: 02-19-2024 ambulatory [facility] Start: 11-21-2023 Non-patient / Non-visit MD Umesh Magana Work Phone: [facility] Work Phone: Start: 11-21-2023 End: 11-25-2023 Evaluation and management of inpatient MD Madison Magana Work Phone: [facility] [place] [facility] Work Phone: Start: 01-23-2023 End: 01-24-[address] MADISON MAGANA . Facility: Start: 08-13-2022 End: 08-13-[address] MADISON MAGANA . Facility: Start: 04-09-2022 End: 04-09-2022 ambulatory MYKE CANTU . Facility: Start: 05-10-2017 End: 05-11-2017 Ambulatory PROVIDER UNKNOWN Facility:[facility] Start: 05-07-2017 End: 05-08-2017 Ambulatory DEFAULT PHYSICIAN Facility:[facility] Procedures Date Procedure Procedure Detail Performing Clinician Start: 04-07-2025 Glucose quantitative blood xcpt reagent strip Shantanu Gilliland MD Work Phone: Start: 04-07-2025 Renal function panel Co elly Márquez MD Work Phone: Start: 04-06-2025 Glucose quantitative blood xcpt reagent strip Shantanu Gilliland MD Work Phone: Start: 04-06-2025 End: 04-06-2025 Renal function panel Alaina Márquez MD Work Phone: Start: 04-06-2025 Glucose quantitative blood xcpt reagent strip Shantanu Gilliland MD Work Phone: Start: 04-06-2025 Glucose quantitative blood xcpt reagent strip Shantanu Gilliland MD Work Phone: Start: 04-06-2025 Radiologic exam ches t single view Merlin Sidhu MD Work Phone: Start: 04-06-2025 Renal function panel Co elly Márquez MD Work Phone: Start: 04-05-2025 Glucose quantitative blood xcpt reagent strip Shantanu Gilliland MD Work Phone: Start: 04-05-2025 End: 04-05-2025 Renal function panel Alaina Márquez MD Work Phone: Start: 04-05-2025 Glucose quantitative blood xcpt reagent strip Shantanu Gilliland MD Work Phone: Start: 04-05-2025 Glucose quantitative blood xcpt reagent strip Shantanu Gilliland MD Work Phone: Start: 04-05-2025 Radiologic exam ches t single view Merlin Sidhu MD Work Phone: Start: 04-05-2025 Renal function panel Co elly Márquez MD Work Phone: Start: 04-04-2025 Renal function panel Co elly Márquez MD Work Phone: Start: 04-04-2025 Cul prsmptv pthgnc organism scrn w/colony estimj Alaina Márquez MD Work Phone: Start: 04-04-2025 Glucose quantitative blood xcpt reagent strip Shantanu Gilliland MD Work Phone: Start: 04-04-2025 Glucose quantitative blood xcpt reagent strip Shantanu Gilliland MD Work Phone: Start: 04-04-2025 Glucose quantitative blood xcpt reagent strip Lissette Maharaj MD Work Phone: Start: 04-04-2025 Radiologic exam ches t single view Merlin Sidhu MD Work Phone: Start: 04-04-2025 Renal function panel Co elly Márquez MD Work Phone: Start: 04-03-2025 Glucose quantitative blood xcpt reagent strip Lissette Maharaj MD Work Phone: Start: 04-03-2025 End: 04-03-2025 Renal function panel Alaina Márquez MD Work Phone: Start: 04-03-2025 Glucose quantitative blood xcpt reagent strip Lissette Maharaj MD Work Phone: Start: 04-03-2025 Glucose quantitative blood xcpt reagent strip Lissette Maharaj MD Work Phone: Start: 04-03-2025 Radiologic exam ches t single view Merlin Sidhu MD Work Phone: Start: 04-03-2025 Renal function panel Co elly Márquez MD Work Phone: Start: 04-02-2025 End: 04-02-2025 Renal function panel Alaina Márquez MD Work Phone: Start: 04-02-2025 Glucose quantitative blood xcpt reagent strip Lissette Maharaj MD Work Phone: Start: 04-02-2025 Glucose quantitative blood xcpt reagent strip Lissette Maharaj MD Work Phone: Start: 04-02-2025 Radiologic exam ches t single view Alaina Márquez MD Work Phone: Start: 04-02-2025 Glucose quantitative blood xcpt reagent strip Lissette Maharaj MD Work Phone: Start: 04-02-2025 Renal function panel Co elly Márquez MD Work Phone: Start: 04-01-2025 End: 04-01-2025 Renal function panel Alaina Márquez MD Work Phone: Start: 04-01-2025 Glucose quantitative blood xcpt reagent strip Lissette Maharaj MD Work Phone: Start: 04-01-2025 Glucose quantitative blood xcpt reagent strip Lissette Maharaj MD Work Phone: Start: 04-01-2025 Glucose quantitative blood xcpt reagent strip Shantanu Gilliland MD Work Phone: Start: 04-01-2025 Glucose quantitative blood xcpt reagent strip Shantanu Gilliland MD Work Phone: Start: 04-01-[address] attenuation whole body Esme Moore MD Work Phone: Start: 04-01-2025 RAD ONC MSQ TREATMEN T SUMMARY Chuck Burgess MD Work Phone: Start: 04-01-2025 AIRWAY CLEARANCE TECHNIQUES Alaina Márquez MD Work Phone: Start: 04-01-2025 End: 04-01-2025 Renal function panel Alaina Márquez MD Work Phone: Start: 04-01-2025 Glucose quantitative blood xcpt reagent strip Shantanu Gilliland MD Work Phone: Start: 03-31-2025 End: 03-31-2025 Renal function panel Alaina Márquez MD Work Phone: Start: 03-31-2025 AIRWAY CLEARANCE TECHNIQUES Alaina Márquez MD Work Phone: Start: 03-31-2025 Radiologic exam ches t single view Alaina Márquez MD Work Phone: Start: 03-31-2025 Radiologic exam ches t single view Alycia Beth MD Work Phone: Start: 03-31-2025 Thoracentesis needle /cath pleura w/imaging Alaina Márquez MD Work Phone: Start: 03-31-2025 Cell count and Differential panel - Body fluid Esme Moore MD Work Phone: Start: 03-31-2025 Cell count misc body fluids w/differential count Esme Moore MD Work Phone: Start: 03-31-2025 Cul bact xcpt urine blood/stool aerobic isol Esme Moore MD Work Phone: Start: 03-31-2025 Cytp slctv cell enhancement interpj xcpt c/v Esme Moore MD Work Phone: Start: 03-31-2025 Differential panel - Body fluid Esme Moore MD Work Phone: Start: 03-31-2025 Glucose [Mass/volume ] in Body fluid Esme Moore MD Work Phone: Start: 03-31-2025 Lactate dehydrogenas e [Enzymatic activity/volume] in Body fluid by Lactate to pyruvate reaction Esme Moore MD Work Phone: Start: 03-31-2025 End: 03-31-2025 Ph body fluid not elsewhere specified Esme Moore MD Work Phone: Start: 03-31-2025 Protein [Mass/volume ] in Body fluid Esem Moore MD Work Phone: Start: 03-31-2025 AIRWAY CLEARANCE TECHNIQUES Alaina Márquez MD Work Phone: Start: 03-31-2025 Glucose quantitative blood xcpt reagent strip Shantanu Gilliland MD Work Phone: Start: 03-31-2025 Renal function panel Co elly Márquez MD Work Phone: Start: 03-31-2025 AIRWAY CLEARANCE TECHNIQUES Alaina Márquez MD Work Phone: Start: 03-31-2025 End: 03-31-2025 Glucose quantitative blood xcpt reagent strip Lissette Maharaj MD Work Phone: Start: 03-31-2025 Glucose quantitative blood xcpt reagent strip Lissette Maharaj MD Work Phone: Start: 03-30-2025 Glucose quantitative blood xcpt reagent strip Lissette Maharaj MD Work Phone: Start: 03-30-2025 AIRWAY CLEARANCE TECHNIQUES Alaina Márquez MD Work Phone: Start: 03-30-2025 Renal function panel Co elly Márquez MD Work Phone: Start: 03-30-2025 Glucose quantitative blood xcpt reagent strip Lissette Maharaj MD Work Phone: Start: 03-30-2025 Glucose quantitative blood xcpt reagent strip Lissette Maharaj MD Work Phone: Start: 03-30-2025 AIRWAY CLEARANCE TECHNIQUES Alaina Márquez MD Work Phone: Start: 03-30-2025 Glucose quantitative blood xcpt reagent strip Lissette Maharaj MD Work Phone: Start: 03-30-2025 Glucose quantitative blood xcpt reagent strip Lissette Maharaj MD Work Phone: Start: 03-30-2025 Radiologic exam ches t single view Merlin Sidhu MD Work Phone: Start: 03-30-2025 AIRWAY CLEARANCE TECHNIQUES Alaina Márquez MD Work Phone: Start: 03-30-2025 Renal function panel Co elly Márquez MD Work Phone: Start: 03-30-2025 Glucose quantitative blood xcpt reagent strip Lissette Maharaj MD Work Phone: Start: 03-30-2025 Glucose quantitative blood xcpt reagent strip Lissette Maharaj MD Work Phone: Start: 03-30-[address] SIM IMAGES ONLY Liam Singh MD Work Phone: Start: 03-29-2025 Renal function panel Co elly Márquez MD Work Phone: Start: 03-29-2025 Glucose quantitative blood xcpt reagent strip Lissette Maharaj MD Work Phone: Start: 03-29-2025 AIRWAY CLEARANCE TECHNIQUES Alaina Márquez MD Work Phone: Start: 03-29-2025 Glucose quantitative blood xcpt reagent strip Lissette Maharaj MD Work Phone: Start: 03-29-2025 Ecg routine ecg w/le ast 12 lds trcg only w/o i&r Alaina Márquez MD Work Phone: Start: 03-29-2025 Mri brain brain stem w/o w/contrast material Alaina Márquez MD Work Phone: Start: 03-29-2025 Glucose quantitative blood xcpt reagent strip Nneka Van MD Work Phone: Start: 03-29-2025 AIRWAY CLEARANCE TECHNIQUES Alaina Márquez MD Work Phone: Start: 03-29-2025 End: 03-29-2025 Renal function panel Alaina Márquez MD Work Phone: Start: 03-28-2025 Glucose quantitative blood xcpt reagent strip Nneka Van MD Work Phone: Start: 03-28-2025 Glucose quantitative blood xcpt reagent strip Nneka Van MD Work Phone: Start: 03-28-2025 AIRWAY CLEARANCE TECHNIQUES Alaina Márquez MD Work Phone: Start: 03-28-2025 End: 03-28-2025 Renal function panel Alaina Márquez MD Work Phone: Start: 03-28-2025 AIRWAY CLEARANCE TECHNIQUES Alaina Márquez MD Work Phone: Start: 03-28-2025 Glucose quantitative blood xcpt reagent strip Beth Hayden MD Work Phone: Start: 03-28-2025 Ct thorax w/contrast material Alaina Márquez MD Work Phone: Start: 03-28-2025 Glucose quantitative blood xcpt reagent strip Lissette Maharaj MD Work Phone: Start: 03-28-2025 Radiologic exam ches t single view Katie Ross MD Work Phone: Start: 03-28-2025 Glucose quantitative blood xcpt reagent strip Nuno Guillen MD Work Phone: Start: 03-28-2025 AIRWAY CLEARANCE TECHNIQUES Alaina Márquez MD Work Phone: Start: 03-28-2025 End: 03-28-2025 Renal function panel Alaina Márquez MD Work Phone: Start: 03-28-2025 Glucose quantitative blood xcpt reagent strip Nuno Guillen MD Work Phone: Start: 03-27-2025 Glucose quantitative blood xcpt reagent strip Nuno Guillen MD Work Phone: Start: 03-27-2025 AIRWAY CLEARANCE TECHNIQUES Alaina Márquez MD Work Phone: Start: 03-27-2025 Renal function panel Co elly Márquez MD Work Phone: Start: 03-27-2025 ANATOMIC PATHOLOGY T EST REQUESTS Tino Ramírez MD PhD Work Phone: Start: 03-27-2025 Glucose quantitative blood xcpt reagent strip Nuno Guillen MD Work Phone: Start: 03-27-2025 Glucose quantitative blood xcpt reagent strip Lissette Maharaj MD Work Phone: Start: 03-27-2025 Glucose quantitative blood xcpt reagent strip Nuno Guillen MD Work Phone: Start: 03-27-2025 End: 03-27-2025 Renal function panel Alaina Márquez MD Work Phone: Start: 03-26-2025 Glucose quantitative blood xcpt reagent strip Lissette Maharaj MD Work Phone: Start: 03-26-2025 Glucose quantitative blood xcpt reagent strip Nuno Guillen MD Work Phone: Start: 03-26-2025 Renal function panel Ab power Ross MD Work Phone: Start: 03-26-2025 Glucose quantitative blood xcpt reagent strip Nuno Guillen MD Work Phone: Start: 03-26-2025 Glucose quantitative blood xcpt reagent strip Lissette Maharaj MD Work Phone: Start: 03-26-2025 EXTUBATION Katie Ross MD Work Phone: Start: 03-26-2025 Gases blood ph direc t chepe xcpt pulse oximitry Katie Ross MD Work Phone: Start: 03-26-2025 Radiologic exam ches t single view Dick Courtney MD Work Phone: Start: 03-26-2025 Glucose quantitative blood xcpt reagent strip Nuno Guillen MD Work Phone: Start: 03-26-2025 Renal function panel Co elly Márquez MD Work Phone: Start: 03-26-2025 Glucose quantitative blood xcpt reagent strip Nuno Guillen MD Work Phone: Start: 03-25-2025 Glucose quantitative blood xcpt reagent strip Nuno Guillen MD Work Phone: Start: 03-25-2025 Glucose quantitative blood xcpt reagent strip Nuno Guillen MD Work Phone: Start: 03-25-2025 Renal function panel Ab power Ross MD Work Phone: Start: 03-25-2025 Ecg routine ecg w/le ast 12 lds trcg only w/o i&r Alaina Márquez MD Work Phone: Start: 03-25-2025 Glucose quantitative blood xcpt reagent strip Nuno Guillen MD Work Phone: Start: 03-25-2025 Glucose quantitative blood xcpt reagent strip Nuno Guillen MD Work Phone: Start: 03-25-2025 Radiologic exam ches t single view Katie Ross MD Work Phone: Start: 03-25-2025 Glucose quantitative blood xcpt reagent strip Nuno Guillen MD Work Phone: Start: 03-25-2025 Renal function panel Co elly Márquez MD Work Phone: Start: 03-25-2025 Glucose quantitative blood xcpt reagent strip Nuno Guillen MD Work Phone: Start: 03-25-2025 Glucose quantitative blood xcpt reagent strip Nuno Guillen MD Work Phone: Start: 03-24-2025 Glucose quantitative blood xcpt reagent strip Nuno Guillen MD Work Phone: Start: 03-24-2025 Radiologic exam ches t single view Nabor Sparks MD Work Phone: Start: 03-24-2025 Glucose quantitative blood xcpt reagent strip Nuno Guillen MD Work Phone: Start: 03-24-2025 Brncc w/placement brncl stent 1st bronchus Александр Jarrett MD Work Phone: Start: 03-24-2025 [facility] Nabor joseph MD Work Phone: Start: 03-24-2025 Cancer related large scale gene targeted mutation analysis in Blood or Tissue by Molecular genetics method Nabor Sparks MD Work Phone: Start: 03-24-2025 End: 03-24-2025 Cytp eval fine needle aspirate interp & report Nabor Sparks MD Work Phone: Start: 03-24-2025 Glucose quantitative blood xcpt reagent strip Nuno Guillen MD Work Phone: Start: 03-24-2025 Radiologic exam ches t single view Nathaly Glover MD MPH Work Phone: Start: 03-24-2025 Assay of troponin quantitative Katie Ross MD Work Phone: Start: 03-24-2025 Ecg routine ecg w/le ast 12 lds trcg only w/o i&r Tara Hernandez MD Work Phone: Start: 03-24-2025 Glucose quantitative blood xcpt reagent strip Nuno Guillen MD Work Phone: Start: 03-24-2025 End: 03-24-2025 Renal function panel Alaina Márquez MD Work Phone: Start: 03-23-2025 Glucose quantitative blood xcpt reagent strip Nuno Guillen MD Work Phone: Start: 03-23-2025 Glucose quantitative blood xcpt reagent strip Nuno Guillen MD Work Phone: Start: 03-23-2025 Glucose quantitative blood xcpt reagent strip Nuno Guillen MD Work Phone: Start: 03-23-2025 Glucose quantitative blood xcpt reagent strip Nuno Guillen MD Work Phone: Start: 03-23-2025 Radiologic exam ches t single view Duncan Del Castillo MD Work Phone: Start: 03-23-2025 Chloride pamela mcnally MD Work Phone: Start: 03-23-2025 Glucose quantitative blood xcpt reagent strip Nuno Guillen MD Work Phone: Start: 03-23-2025 Renal function panel Co elly Márquez MD Work Phone: Start: 03-23-2025 Glucose quantitative blood xcpt reagent strip Nuno Guillen MD Work Phone: Start: 03-22-2025 Glucose quantitative blood xcpt reagent strip Nuno Guillen MD Work Phone: Start: 03-22-2025 Glucose quantitative blood xcpt reagent strip Nuno Guillen MD Work Phone: Start: 03-22-2025 Glucose quantitative blood xcpt reagent strip Nuno Guillen MD Work Phone: Start: 03-22-2025 US Heart Transthoracic Tasneem Goodson MD Work Phone: Start: 03-22-2025 Smr prim src gram/gi emsa stain bct fungi/cell Ramya Alvarez MD Work Phone: Start: 03-22-2025 Glucose quantitative blood xcpt reagent strip Nuno Guillen MD Work Phone: Start: 03-22-2025 EXTRA URINE CABRERA TUBE J robert Alvarez MD Work Phone: Start: 03-22-2025 Urinalysis complete W Reflex Culture panel - Urine Ramya Alvarez MD Work Phone: Start: 03-22-2025 End: 03-22-2025 Iaad ia mult step method nos each organism Ramya Alvarez MD Work Phone: Start: 03-22-2025 Radiologic exam ches t single view Ramya Alvarez MD Work Phone: Start: 03-22-2025 Glucose quantitative blood xcpt reagent strip Nuno Guillen MD Work Phone: Start: 03-22-2025 Radiologic exam abdo men 1 view Ramya Alvarez MD Work Phone: Start: 03-22-2025 End: 03-22-2025 Culture bacterial blood aerobic w/id isolates Ramya Alvarez MD Work Phone: Start: 03-22-2025 Blood typing serolog ic rh (d) Ramya Alvarez MD Work Phone: Start: 03-22-2025 Comprehensive metabo lic panel Ramya Alvarez MD Work Phone: Start: 03-22-2025 PULSE OXIMETRY, CONTINUOUS Ramya Alvarez MD Work Phone: Start: 09-24-2024 Cystoscopy Benjy SILAS [place] Start: 08-20-2024 Flexible cystoscope (physical object) Benjy [...] vertebr al column (body structure) Ashley Orzech Surgical procedure o n cervical spine Benjy JOHNSON Surgical procedure o n lumbar spine Benjy JOHNSON Plan of Treatment Date Care Activity Detail Author Start: 04-16-2026 Adult BMI Screening Adult BMI Screening [facility] Start: 04-07-2026 Creatinine measurement [facility] Start: 04-07-2026 Diabetes mellitus screening [facility] Start: 04-07-2026 Potassium measurement [facility] Start: 04-01-2026 Creatinine measurement Creatinine Level [facility] Start: 04-01-2026 Diabetes mellitus screening Diabetes Screening [facility] Start: 04-01-2026 Potassium measurement Potassium Level [facility] Start: 03-31-2026 Creatinine measurement Creatinine Level [facility] Start: 03-31-2026 Diabetes mellitus screening Diabetes Screening [facility] Start: 03-31-2026 Potassium measurement Potassium Level [facility] Start: 03-30-2026 Creatinine measurement Creatinine Level [facility] Start: 03-30-2026 Potassium measurement Potassium Level [facility] Start: 03-22-2026 Echocardiography Echocardiogram [facility] Start: 03-22-2026 [facility] Start: 10-26-2025 End: 10-26-2025 ambulatory [facility] Start: 05-10-2025 Influenza vaccination [facility] Start: 04-05-2025 End: 04-05-2025 Patient encounter procedure 04/05/2025 4:00 PM EDT Office Visit [facility] [address] [place] [address] [place] [address] [place] [address] [facility] Start: 04-01-2025 End: 04-01-2025 Patient encounter procedure [facility] Start: 01-07-2025 COVID-19 Vaccine (4 - Pfizer risk season) COVID-19 Vaccine (4 - Pfizer risk season) [facility] Start: 01-07-2025 [facility] Start: 11-25-2023 [facility] Start: 11-21-2023 Hospital admission [facility] Start: 11-21-2023 Referral to Hearing Therapist [facility] Start: 2022 RSV High Risk: (Elderly (60+) or Population) (1 - Risk 60-74 years 1-dose series) RSV High Risk: (Elderly (60+) or Population) (1 - Risk 60-74 years 1-dose series) [facility] Start: 2022 [facility] Start: 06-22-2021 Pneumococcal vaccination Pneumococcal Vaccine (2 of 2 - PCV) [facility] Start: 06-22-2021 [facility] Start: 2002 Screening for malignant neoplasm of breast [facility] Start: 1984 DTaP/Tdap/Td Vaccines (1 - Tdap) DTaP/Tdap/Td Vaccines (1 - Tdap) [facility] Start: 1984 [facility] Start: 1983 Screening for malignant neoplasm of cervix [facility] Start: 1981 Administration of varicella zoster vaccine Zoster (Shingles) Vaccine (1 of 2) [facility] Start: 1981 DTaP,Tdap and Td Vaccines (1 - Tdap) DTaP,Tdap and Td Vaccines (1 - Tdap) [facility] Start: 1981 Zoster Vaccines (1 of 2) Zoster Vaccines (1 of 2) [facility] Start: 1981 [facility] Start: 1980 Diabetic foot examination Diabetic Foot Exam [facility] Start: 1980 Hepatitis C screening [facility] Start: 1974 Depression Screening Depression Screening [facility] Start: 1974 Tobacco Screening Tobacco Screening [facility] Start: 1963 MMR Vaccines (1 of 1 - Standard series) MMR Vaccines (1 of 1 - Standard series) [facility] Start: 1963 [facility] Start: 1962 Bronchoscopy Bronchoscopy [facility] Start: 1962 Glaucoma screening Diabetic Ophthalmology Exam [facility] Start: 1962 HIV screening [facility] Start: 1962 Lipid panel [facility] Start: 1962 Medicare Annual Wellness Visit [facility] Start: 1962 Screening for malignant neoplasm of colon [facility] Start: 1962 Statin Use: Cardiovascular Statin Use: Cardiovascular [facility] Start: 1962 Statin Use: Diabetic Statin Use: Diabetic [facility] Start: 1962 [facility] CBC W Auto Different ial panel - Blood [facility] Work Phone: Electrocardiogram, 1 2-lead PRN ACS symptoms [facility] Service Area Work Phone: Electrocardiogram, 1 2-lead PRN ACS symptoms [facility] Work Phone: Glucose [Mass/volume ] in Serum or Plasma [facility] Work Phone: Magnesium [Mass/volu me] in Serum or Plasma [facility] Work Phone: Patient Education Atrial Fibrill ation (DC) Heart Failure, Adult (DC) Flu, Adult (DC) Going Home on Blood Thinners [facility] Work Phone: Patient referral [facility] Work Phone: End: 03-29-2025 Rad Onc Intent to Treat [facility] Service Are a Work Phone: End: 03-31-2025 Rad Onc Intent to Treat [facility] Service Are a Work Phone: Renal function 1999 panel - Serum or Plasma [facility] Work Phone: Renal function 1999 panel - Serum or Plasma [facility] Work Phone: End: 04-02-2025 Tempus Solid Tumor DNA/RNA (xT/xR, paired Germline testing optional) [facility] Area Work Phone: End: 04-02-2025 Tempus xT DNA and RNA Solid Tumor [facility] Work Phone: End: 03-24-2025 US Abdomen [facility] Work Phone: End: 04-10-2025 XR Chest Single view [facility] Work Phone: XR Chest Single view [facility] Work Phone: Immunizations Immunization Date Immunization Notes Care Provider Leif askew 07-10-2024 influenza virus vacc ine, unspecified formulation Benjy JOHNSON [facility] 06-06-2023 influenza virus vacc ine, unspecified formulation Ashley Orzech [facility] 03-28-2022 SARS-CoV-2 mRNA (ctgaugvjasp-zvpm-obgddf e) vaccine Ashley Orzech [facility] 06-16-2021 influenza virus vacc ine, unspecified formulation Ashley Orzech [facility] 06-16-2021 SARS-CoV-2 (COVID-19 ) mRNA BNT-162b2 vax Ashley Orzech [facility] 12-08-2020 SARS-CoV-2 (COVID-19 ) mRNA BNT-162b2 vax Ashley Orzech [facility] 11-17-2020 SARS-CoV-2 (COVID-19 ) mRNA BNT-162b2 vax Ashley Orzech [facility] 06-22-2020 influenza virus vacc ine, unspecified formulation Ashley Orzech [facility] 06-22-2020 pneumococcal polysaccharide vaccine, 23 valent Ashley Orzech [facility] 07-31-2019 influenza virus vacc ine, unspecified formulation Ashley Orzech [facility] 07-28-2018 influenza virus vacc ine, unspecified formulation Ashley Orzech [facility] 06-21-2017 influenza, unspecifi ed formulation [employer] [facility] 05-08-2016 influenza virus vacc ine, unspecified formulation Ashley Orzech [facility] 06-08-2015 influenza virus vacc ine, unspecified formulation Ashley Orzech [facility] Payers Date Payer Category Payer Self-pay 2020 Medicare [id number] 2011 Medicare [id number] 1962 Unknown [id number] 2.16.84 [id number] 1962 Unknown [id number] 2.16.84 [id number] 1962 Unknown [id number] 2.16.84 [id number] 1962 Unknown [id number] 2.16.8 40.1.890267.3.579.2.727 1962 Unknown [id number] 2.16.8 40.1.255095.3.579.2.727 1962 Unknown [id number] 2.16.8 40.1.879730.3.579.2.727 1962 Unknown [id number] 2.16.8 40.1.412673.3.579.2.727 1962 Unknown [id number] 2.16.8 40.1.731173.3.579.2.727 1962 Unknown [id number] 2.16.8 40.1.983097.3.579.2.727 1962 Unknown [id number] 2.16.8 40.1.173904.3.579.2.727 1962 Unknown [id number] 2.16. 840.1.844065.3.579.2.1245 1962 Unknown [id number] 2.16. 840.1.277925.3.579.2.124 1962 Unknown [id number] 2.16. 840.1.068281.3.579.2.1245 1962 Unknown [id number] 2.16. 840.1.861615.3.579.2.1245 1962 Unknown [id number] 2.16. 840.1.221622.3.579.2.1245 1962 Unknown [id number] 2.16. 840.1.868875.3.579.2.1245 1962 Unknown [id number] 2.16. 840.1.958954.3.579.2.1245 1962 Unknown [id number] 2.16. [id number] 1957 Medicare [id number] Medicare [id number] Unknown Unknown O [id number] Unknown [id number] 2.16.8 [id number] Social History Date Type Detail Facility Start: 11-22-2023 End: 08-20-2024 Tobacco smoking status NHIS Ex-smoker (finding) [facility] Start: 1960 Sex Assigned At Female [facility] Start: 11-21-2023 Tobacco smoking status Never [facility] Start: 10-20-2020 End: 03-22-2025 Sex Assigned At Female [facility] Rishi [facility] Start: 09-17-2024 Tobacco smoking status Heavy t obacco smoker (finding) [facility] Start: 03-22-2025 Tobacco smoking stat NHIS Tobacco smoking consumption unknown [facility] Work Phone: Start: 03-24-2025 Alcoholic beverage intake Defer [facility] Work Phone: Start: 10-20-2020 End: 03-22-2025 History of Social function [facility] Work Phone: Within the last year , have you been afraid of your partner or ex-partner? No [facility] How hard is it for y ou to pay for the very basics like food, housing, medical care, and heating Not very hard [facility] (I/We) worried shellie er (my/our) food would run out before (I/we) got money to buy more. Never true [facility] Work Phone: Start: 1960 [facility]: Start: 03-31-2025 [facility] Start: 03-31-2025 Tobacco use and exposure Smokeless tobacco non-user [facility] Work Phone: Start: 03-31-2025 Alcoholic beverage intake Ex-drinker (finding) [facility] Work Phone: Start: 04-14-2015 Sex Female (finding) [facility] Medical Equipment Procedure Code Equipment Code Equipment Origin al Text Equipment Identifier Dates [id number] Start: 03-24-2025 Goals Date Patient Goal Desired Activity /State Functional Status Date Assessment Result Facility 03-22-2025 [facility] ED s everity rating scale screener - recent [C-SSRS] [facility] Work Phone: 03-22-2025 Total score [AUDIT-C] [facility] Work Phone: 03-22-2025 Patient Health [facility] ionnaire 2 item (PHQ-2) [Reported] [facility] Work Phone: 09-17-2024 Functional Status No Fab Blake [facility] 08-20-2024 Functional Status N/A [facility] [place] [facility] 06-02-2024 Functional Status N/A [facility] [place] [facility] 11-25-2023 Functional status Patient at Baseline [facility] Work Phone: [facility] Work Phone: Mental Status Date Assessment Result Facility 11-25-2023 Cognitive function Cognitive Sta tus Patient at Baseline [facility] Work Phone: Clinical Notes 11-21-2023 to 04-21-2025 Chet Longo, DO - 04/21/2025 11:59 PM EDAbraham Longo, DO - 04/16/2025 3:33 PM EDAbraham Alistair Donta, DO - 04/13/2025 11:59 PM EDAbraham Alistair Wongaleksandar, DO - 04/07/2025 11:59 PM EDTAttachments Note Date & Type Note Facility 04-21-2025 History of Present illness Narrative Patient Name: Melissa Dubose Date of : 1960 Date of Service: 04/21/2025 Facility: [facility] Type of Visit: Skilled Visit Subjective Melissa Dubose is a 64 y.o. female seen today at retirement facility for skilled visit. Clara is still having issues with nausea and vomiting. She just got an IM injection of Zofran and is feeling a little better. She has a very poor appetite. She currently is getting subcutaneous fluids via hypodermoclysis. She is still in therapy. She feels weak. Still not ambulating well. She has a tentative discharge date set for next Saturday. She had a ramp built so she can get into and out of her home more easily. She has pain but medication does help when she uses it.She is concerned about her heart medications. She has thrown up a couple times after taking her medications in his worried that she is missing doses. Allergies: Oxycodone-acetaminophen Code Status: FULL CODE BP 99/62 Pulse 108 Temp 36.4 C (97.6 F) Resp 18 Wt 100.5 kg (221 lb 9.6 oz) SpO2 94% BMI 31.80 kg/m Physical Exam Vitals reviewed. Constitutional: General: She is not in acute distress. Appearance: She is ill-appearing. Cardiovascular: Rate and Rhythm: Regular rhythm. Pulses: Normal pulses. Heart sounds: Normal heart sounds. No murmur heard. Pulmonary: Effort: Pulmonary effort is normal. No respiratory distress. Breath sounds: Normal breath sounds. No wheezing or rales. Abdominal: General: Bowel sounds are normal. Palpations: Abdomen is soft. Tenderness: There is no abdominal tenderness. Musculoskeletal: Right lower leg: No edema. Left lower leg: No edema. Neurological: General: No focal deficit present. Mental Status: She is alert and oriented to person, place, and time. Psychiatric: Attention and Perception: Attention normal. Mood and Affect: Mood and affect normal. Speech: Speech normal. Behavior: Behavior normal. Behavior is cooperative. Thought Content: Thought content normal. Judgment: Judgment normal. Assessment/Plan Summary / Assessment / Plan 1. Malignant neoplasm of unspecified part of right bronchus or lung ([facility]) 2. Chronic obstructive pulmonary disease, unspecified COPD type ([facility]) 3. Acute respiratory failure with hypoxia ([facility]) 4. Chronic heart failure, unspecified heart failure type ([facility]) 5. Muscle weakness (generalized) 6. Other fatigue 7. Unsteadiness on feet 8. Diabetic polyneuropathy associated with type 2 diabetes mellitus ([facility]) 9. Nausea and vomiting, unspecified vomiting type Continue with physical therapy to reach maximum improvement. Melissa will be discharging to home next week. She came [facility] in a very weakened condition following prolonged hospitalization due to a newly diagnosed malignant neoplasm of the right lung. She also had acute respiratory failure and was on a ventilator for several days. She has COPD and congestive heart failure and complicating conditions. These conditions cause limited mobility that required the use of a wheelchair to improve her independence with ADLs and IADLs. It would improve her mobility in the home and community. She has balance issues due to her multiple medical conditions and she is unsafe to ambulate with a walker cane in currently requiring contact guard assist with a front wheeled walker or when working with therapy. She can propel herself with a standard wheelchair and will have assistance with from family members for ambulation requiring distance in the community. She is oxygen dependent and would benefit from an oxygen cylinder bailey. Her home can accommodate a wheelchair as she is having a new ramp installed so she can safely enter and exit her home. We did discuss her medications. She is basically missed metoprolol and Entresto doses because of vomiting. Those medications can lower the blood pressure and her blood pressure was already running on the low normal side. She should be able to resume these when she is feeling better. Currently does not appear to be in heart failure clinically. She was encouraged to quit smoking. She is to follow up with her PCP in 1-2 weeks. ELECTRONICALLY SIGNED BY: Chet Longo DO documented in this encounter [facility] 04-16-2025 History of Present illness Narrative Patient Name: Melissa Dubose Date of : 1960 Date of Service: 04/16/2025 Facility: [facility] Type of Visit: Skilled Visit Subjective Melissa Dubose is a 64 y.o. female seen today at retirement facility for problem visit. Staff reports low blood pressures recently. She had recent blood pressure a being 80/46. She does feel lightheaded when she stands up. She has not passed out. . Lost lb she was admitted. She didn't eat lunch today. She is drinking ok. Allergies: Oxycodone-acetaminophen Code Status: FULL CODE BP (!) 80/46 Pulse 76 Temp 36.4 C (97.6 F) Resp 16 Wt 101.6 kg (224 lb) SpO2 97% BMI 32.14 kg/m Physical Exam Vitals reviewed. Exam conducted with a sustainment logistics analyst present (Honorio Marsh MS3). Cardiovascular: Rate and Rhythm: Regular rhythm. Pulses: Normal pulses. Heart sounds: Normal heart sounds. No murmur heard. Pulmonary: Effort: Pulmonary effort is normal. No respiratory distress. Breath sounds: Normal breath sounds. No wheezing. Musculoskeletal: Right lower leg: No edema. Left lower leg: No edema. Neurological: Mental Status: She is alert. Psychiatric: Attention and Perception: Attention normal. Mood and Affect: Mood and affect normal. Speech: Speech normal. Behavior: Behavior normal. Behavior is cooperative. Thought Content: Thought content normal. Judgment: Judgment normal. Assessment/Plan Summary / Assessment / Plan 1. Hypotension, unspecified hypotension type 2. Chronic heart failure, unspecified heart failure type (CMS-HCC) 3. Primary hypertension 4. Chronic obstructive pulmonary disease, unspecified COPD type (CMS-HCC) 5. Malignant neoplasm of unspecified part of right bronchus or lung (CMS-HCC) She is hypotensive and symptomatic when she stands up. I'm going to cut back on metoprolol 25mg BID to 12.5mg BID. Continue therapy to reach maximum improvement. Continue other orders as dir. ELECTRONICALLY SIGNED BY: Chet Longo DO documented in this encounter [facility] 04-13-2025 History of Present illness Narrative Patient Name: Melissa Dubose Date of : 1960 Date of Service: 04/13/2025 Facility: [facility] Type of Visit: Skilled Visit Subjective Melissa Dubose is a 64 y.o. female seen today at retirement facility for skilled visit. Melissa has been having nausea, vomiting and diarrhea. She has a poor appetite. She had 1 dose of chemotherapy and it made her sick. She is weak. Zofran wasn't helping much so it was changed to promethazine and that is working better. Vomiting is better. An IV was started. She does have a history of heart failure. She denies worsening CP or SOB. She doesn't have a fever. There is no blood in stool or vomitus. She is participating in therapy. Allergies: Oxycodone-acetaminophen Code Status: FULL CODE BP 90/60 Pulse 92 Temp 36.3 C (97.3 F) Resp 16 Wt 105.2 kg (231 lb 14.4 oz) SpO2 98% BMI 33.27 kg/m Physical Exam Vitals reviewed. Exam conducted with a sustainment logistics analyst present (Honorio Marsh MS3). Constitutional: General: She is not in acute distress. Appearance: She is ill-appearing (mildly). HENT: Head: Normocephalic. Cardiovascular: Rate and Rhythm: Normal rate and regular rhythm. Heart sounds: Normal heart sounds. Pulmonary: Effort: Pulmonary effort is normal. No respiratory distress. Breath sounds: Decreased breath sounds present. No wheezing, rhonchi or rales. Abdominal: General: Bowel sounds are normal. Tenderness: There is abdominal tenderness (mild diffusely). There is no guarding or rebound. Neurological: General: No focal deficit present. Mental Status: She is alert and oriented to person, place, and time. Psychiatric: Attention and Perception: Attention normal. Mood and Affect: Mood is depressed. Speech: Speech normal. Behavior: Behavior normal. Assessment/Plan Summary / Assessment / Plan 1. Malignant neoplasm of unspecified part of right bronchus or lung (CMS-HCC) 2. Nausea and vomiting, unspecified vomiting type 3. Chronic obstructive pulmonary disease, unspecified COPD type (CMS-HCC) 4. Muscle weakness (generalized) 5. Unsteadiness on feet 6. Gastrointestinal hemorrhage, unspecified gastrointestinal hemorrhage type 7. Atrial fibrillation, unspecified type (CMS-HCC) She is feeling better with the IV and medications so will decrease IV rate to 75cc/hr. Rx:Immodium 2mg 2 Q6hrs prn diarrhea. Continue therapy to reach maximum improvement. All medications reviewed and are medically necesssary. ELECTRONICALLY SIGNED BY: Chet Longo DO documented in this encounter [facility] [employer] 04-07-2025 History of Present illness Narrative Patient Name: Melissa Dubose Date of : 1960 Date of Service: 04/21/2025 Facility: [facility] Type of Visit: Admission H&P Subjective Melissa Dubose is a 64 y.o. female seen today at [facility] facility for admission H&P . Clara presents to [facility] for therapies following admission to [facility] for shortness of breath. She was found to be in respiratory failure due to pneumonia and a new lung mass which was found to be malignant. It was obstructing a bronchus so she was transferred to in [place]. She doesn't recall much of the events around the hospitalization. She said she was getting progressively worse shortness of breath for the week or so prior to hospitalization. She was on a ventilator for a few days. She is very weak. She cannot walk. She is on oxygen and she wasn't prior to hospitalization. She reports that she has chest pain and is taking pain medication. She has had pain for awhile. She thought she could feel the mass months ago and brought it up with PCP and was recommended to monitor it. Her appetite is down. She has lost weight. Allergies: Oxycodone-acetaminophen Code Status: FULL CODE The following portions of the patient's history were reviewed and updated as appropriate: allergies, current medications, past family history, past medical history, past social history, past surgical history, problem list, and medication reconciliation was completed including current medication and post discharge medication. Review of Systems Constitutional: Positive for appetite change, fatigue and unexpected weight change. Cardiovascular: Positive for chest pain. Gastrointestinal: Positive for nausea. Musculoskeletal: Positive for gait problem. Neurological: Positive for weakness. Psychiatric/Behavioral: Positive for dysphoric mood. Objective Physical Exam Vitals reviewed. Constitutional: General: She is not in acute distress. Appearance: She is ill-appearing (mildly). HENT: Head: Normocephalic. Right Ear: External ear normal. Left Ear: External ear normal. Eyes: General: No scleral icterus. Extraocular Movements: Extraocular movements intact. Conjunctiva/sclera: Conjunctivae normal. Cardiovascular: Rate and Rhythm: Normal rate and regular rhythm. Heart sounds: Normal heart sounds. Pulmonary: Effort: Pulmonary effort is normal. No respiratory distress. Breath sounds: Decreased breath sounds present. No wheezing, rhonchi or rales. Abdominal: General: Bowel sounds are normal. There is no distension. Tenderness: There is no abdominal tenderness. There is no guarding. Hernia: No hernia is present. Musculoskeletal: Cervical back: Neck supple. Right lower leg: No edema. Left lower leg: No edema. Lymphadenopathy: Cervical: No cervical adenopathy. Skin: General: Skin is warm and dry. Neurological: General: No focal deficit present. Mental Status: She is alert and oriented to person, place, and time. Psychiatric: Attention and Perception: Attention normal. Mood and Affect: Mood is depressed. Speech: Speech normal. Behavior: Behavior normal. Assessment/Plan Summary / Assessment / Plan 1. Acute respiratory failure with hypoxia ([facility]) 2. Malignant neoplasm of unspecified part of right bronchus or lung ([facility]) 3. Chronic obstructive pulmonary disease, unspecified COPD type ([facility]) 4. Diabetic polyneuropathy associated with type 2 diabetes mellitus ([facility]) 5. Muscle weakness (generalized) 6. Chronic heart failure, unspecified heart failure type ([facility]) 7. Primary hypertension 8. Atrial fibrillation, unspecified type ([facility]) 9. Unsteadiness on feet 10. Atherosclerosis of [place] coronary artery of [place] heart without angina pectoris 11. Noninfectious gastroenteritis, unspecified type 12. Pneumothorax, unspecified type 13. Cigarette nicotine dependence with nicotine-induced disorder 14. Gastroesophageal reflux disease without esophagitis 15. Ischemic cardiomyopathy Admit to [facility] for therapies. She is planning to go home when she is physically able to. Continue medications from the hospital. Full code. F/U with oncology as directed. Fair to good rehab potential. ELECTRONICALLY SIGNED BY: Chet Longo DO documented in this encounter [employer] 04-07-2025 History of Present illness Narrative 03/31/25 1000 Discharge Planning Living Arrangements Children (Pt is KOSTA. Information is obtained from pt's father, Ben.) Support Systems Children;Parent Assistance Needed ADLs Type of Residence Private residence Number of Stairs to Enter Residence 2 Number of Stairs Within Residence 10 Do you have animals or pets at home? Yes Type of Animals or Pets a dog Home or Post Acute Services In home services;Post acute facilities (Rehab/SNF/etc) Type of Post Acute Facility Services FPC;Rehab Type of Home Care Services Home OT;Home PT;Home nursing visits Expected Discharge Disposition (TBD) Does the patient need discharge transport arranged? Yes [employer] coordination needed? Yes Has discharge transport been arranged? No Financial Resource Strain How hard is it for you to pay for the very basics like food, housing, medical care, and heating? Not very Housing Stability In the last 12 months, was there a time when you were not able to pay the mortgage or rent on time? N In the past 12 months, how many times have you moved where you were living? 0 At any time in the past 12 months, were you homeless or living in a chcf (including now)? N Transportation Needs In the past 12 months, has lack of transportation kept you from medical appointments or from getting medications? no In the past 12 months, has lack of transportation kept you from meetings, work, or from getting things needed for daily living? No Patient Choice Provider Choice list and [facility] website (https://medicare.gov/care-compare #search) for post-acute Quality and Resource Measure Data were provided and reviewed with: Family;Patient Patient / Family choosing to utilize agency / facility established prior to hospitalization No Stroke Family Assessment Stroke Family Assessment Needed No Intensity of Service Intensity of Service 0-30 min Pt scheduled for a thoracentesis today. Care team hopes to wean O2 after. PT currently recs high and OT recs high vs mod. Per care team, urgent RT is planned for tomorrow. Care team aware that pt cannot be in active tx for AR. SW will meet with pt/family to discuss. SW will follow. Mariano Melvin [facility] 03/31/2025 1115 SW met with pt and father bedside to discuss AR. SW described the difference between AR and SNF and pt is amenable to whatever will get her up and moving again. There is an AR at [facility] in [place]. WES asked the care team to order a PM&R. Further discharge planning pending updates from the care team. SW will follow. Mariano Melvin [facility] 03/31/2025 1205 Per care team, pt is being evaluated for inpatient chemo by Thoracic Onc. [facility] is planning to see pt soon after discharge and may plan RT soon after that. WES requested that care team meet with pt to discuss before SW returns to room to discuss SNF rather than AR. SW will follow. Mariano Melvin [facility] 04/02/2025 1020 Per care team, no plans for chemo or RT. PM&R recs AR. Referral sent to [facility]. SW will follow. Mariano Melvin [facility] 04/02/2025 1500 Referral faxed to [facility] at [phone]. SW will follow. Mariano Melvin [facility] 04/05/2025 1050 SW called [facility] and spoke to Jenifer [phone] to follow up on referral. ALEX MD wants updated clinicals and PT/OT. SW requested new PT and OT notes via the whiteboard. SW will follow. Mariano Melvin [facility] 04/05/2025 1620 Updated clinicals, incl PT and OT, faxed to [facility]. SW will follow. Mariano Melvin [facility] 04/06/2025 0930 SW called and left a voicemail for Jenifer at [facility] for confirmation that she received the fax WES sent yesterday and to follow up on pt's acceptance to rehab. SW will follow. Mariano Melvin [facility] 04/06/2025 1000 SW received a phone call from Jenifer from [facility]; she reported that the ALEX MD does not believe pt can tolerate AR at this time. SW spoke to pt and let her know. After SW described SNF, she confirmed she is amenable. Care team updated. SW will follow. Mariano Melvin [facility] 04/06/2025 1310 Referral sent to pr preferences: [facility], [facility], [facility], [facility], and [facility]. Pt was accepted to [facility]. Facility wanted clarification on pt's insurance so details were sent. SW spoke to pt and she confirmed [facility] as FOC; her home is about 1/2 mile away and her family will be able to visit her. SW let her know that she may discharge today once facility confirms insurance and confirms that they have a bed for her now. Pt father is currently bedside so is updated. Care team updated. SW will follow. Mariano Melvin [facility] 04/06/2025 1545 Transport requested for pt to discharge to [facility] but no transport company could accept the ride due to the distance to the facility. Transport confirmed for 04/07 at 1200 with [facility]. Pt, care team, and facility notified. SW will follow. Mariano Melvin [facility] 04/07/2025 1150 Discharge charge order is now in. AVS and goldenrod sent to SNF [facility]. [id number] submitted in HENS; facility notified. Once received, number for report will be sent to bedside nurse. SW will follow. [facility] 1210 Per SNF: Number for report is [phone] ext [phone] and patient is going to room 103 Details sent to bedside nurse via secure chat. SW will follow. Mariano Melvin [facility] MANAGER MARKET[employer] Care Transitions Note: 04/06/25 Social work following to assist with discharge planning. Pt recommended for SNF. Choice list provided and pt selected the following in order of preference: [facility], [facility], [facility], [facility]. Referrals sent via careport. Will advise of accepting SNF's when known. Linda KEATING Care Transitions Athlete Manager 03/31/25 1000 Discharge Planning Living Arrangements Children (Pt is KOSTA. Information is obtained from pt's father, Ben.) Support Systems Children;Parent Assistance Needed ADLs Type of Residence Private residence Number of Stairs to Enter Residence 2 Number of Stairs Within Residence 10 Do you have animals or pets at home? Yes Type of Animals or Pets a dog Home or Post Acute Services In home services;Post acute facilities (Rehab/SNF/etc) Type of Post Acute Facility Services FPC;Rehab Type of Home Care Services Home OT;Home PT;Home nursing visits Expected Discharge Disposition (TBD) Does the patient need discharge transport arranged? Yes [employer] coordination needed? Yes Has discharge transport been arranged? No Financial Resource Strain How hard is it for you to pay for the very basics like food, housing, medical care, and heating? Not very Housing Stability In the last 12 months, was there a time when you were not able to pay the mortgage or rent on time? N In the past 12 months, how many times have you moved where you were living? 0 At any time in the past 12 months, were you homeless or living in a chcf (including now)? N Transportation Needs In the past 12 months, has lack of transportation kept you from medical appointments or from getting medications? no In the past 12 months, has lack of transportation kept you from meetings, work, or from getting things needed for daily living? No Patient Choice Provider Choice list and CMS website (https://medicare.gov/care-compare #search) for post-acute Quality and Resource Measure Data were provided and reviewed with: Family;Patient Patient / Family choosing to utilize agency / facility established prior to hospitalization No Stroke Family Assessment Stroke Family Assessment Needed No Intensity of Service Intensity of Service 0-30 min Pt scheduled for a thoracentesis today. Care team hopes to wean O2 after. PT currently recs high and OT recs high vs mod. Per care team, urgent RT is planned for tomorrow. Care team aware that pt cannot be in active tx for AR. SW will meet with pt/family to discuss. SW will follow. Mariano Melvin [facility] 03/31/2025 1115 SW met with pt and father bedside to discuss AR. SW described the difference between AR and SNF and pt is amenable to whatever will get her up and moving again. There is an AR at [facility] in [place]. WES asked the care team to order a PM&R. Further discharge planning pending updates from the care team. SW will follow. Mariano Melvin [facility] 03/31/2025 1205 Per care team, pt is being evaluated for inpatient chemo by Thoracic Onc. [facility] is planning to see pt soon after discharge and may plan RT soon after that. WES requested that care team meet with pt to discuss before SW returns to room to discuss SNF rather than AR. SW will follow. Mariano Melvin [facility] 04/02/2025 1020 Per care team, no plans for chemo or RT. PM&R recs AR. Referral sent to [facility] AR. SW will follow. Mariano Melvin [facility] 04/02/2025 1500 Referral faxed to [facility] at [phone]. SW will follow. Mariano Melvin [facility] 04/05/2025 1050 SW called [facility] and spoke to Jenifer [phone] to follow up on referral. ALEX MD wants updated clinicals and PT/OT. WES requested new PT and OT notes via the whiteboard. SW will follow. Mariano Melvin [facility] 04/05/2025 1620 Updated clinicals, incl PT and OT, faxed to [facility]. SW will follow. Mariano Nails Melvin [facility] 04/06/2025 0930 WES called and left a voicemail for Jenifer at [facility] for confirmation that she received the fax WES sent yesterday and to follow up on pt's acceptance to rehab. SW will follow. Mariano Nails Olegario [facility] 04/06/2025 1000 SW received a phone call from Jenifer from [facility]; she reported that the ALEX MD does not believe pt can tolerate AR at this time. WES spoke to pt and let her know. After SW described SNF, she confirmed she is amenable. Care team updated. SW will follow. Mariano Melvin [facility] 04/06/2025 1310 Referral sent to pr preferences: [facility], [facility], [facility], [facility], and [facility]. Pt was accepted to FOC [facility]. Facility wanted clarification on pt's insurance so details were sent. WES spoke to pt and she confirmed [facility] as FOC; her home is about 1/2 mile away and her family will be able to visit her. SW let her know that she may discharge today once facility confirms insurance and confirms that they have a bed for her now. Pt father is currently bedside so is updated. Care team updated. SW will follow. Mariano Melvin [facility] 04/06/2025 1545 Transport requested for pt to discharge to SNF [facility] but no transport company could accept the ride due to the distance to the facility. Transport confirmed for 04/07 at 1200 with [facility]. Pt, care team, and facility notified. SW will follow. Mariano Melvin [facility] MANAGER [employer]ICATION[employer] Melissa Dubose is a 64 y.o. female on day 15 of admission presenting with Acute hypoxic respiratory failure. Subjective Her O2 sat dropped to 80-87% when tried to wean her off overnight. Report mild SOB, CP, unchanged from yesterday. She reports no bowel movement over the last few days. Objective Last Recorded Vitals Blood pressure 119/82, pulse 63, temperature 36.4 C (97.5 F), temperature source Temporal, resp. rate 16, height 1.778 m (5' 10 ), weight 117 kg (258 lb 1.6 oz), SpO2 96%. On 1.5 L O2 NC Intake/Output last 3 Shifts: I/O last 3 completed shifts: In: 240 (2.1 mL/kg) [P.O.:240] Out: 1500 (12.8 mL/kg) [Urine:1500 (0.4 mL/kg/hr)] Weight: 117.1 kg Physical Exam Constitutional: Appearance: Normal appearance. She is obese. Cardiovascular: Rate and Rhythm: Normal rate and regular rhythm. Pulses: Normal pulses. Heart sounds: Normal heart sounds. Pulmonary: Effort: Pulmonary effort is normal. Breath sounds: Decreased air movement present. Examination of the right-upper field reveals decreased breath sounds. Examination of the right-middle field reveals decreased breath sounds. Decreased breath sounds present. Neurological: Mental Status: She is alert. Relevant Results Labs: CBC: Results from last 7 days Lab Units 04/06/25 0655 04/05/25 0511 04/04/25 0550 WBC AUTO x10*3/uL 7.7 8.1 7.6 HEMOGLOBIN g/dL 12.1 12.2 12.7 PLATELETS AUTO x10*3/uL 213 217 197 BMP: Results from last 7 days Lab Units 04/06/25 0655 04/05/25 1841 04/05/25 0511 SODIUM mmol/L 135* 134* 134* POTASSIUM mmol/L 4.6 4.0 4.4 CHLORIDE mmol/L 100 97* 99 CO2 mmol/L 27 30 27 BUN mg/dL 11 14 12 CREATININE mg/dL 0.58 0.74 0.59 GLUCOSE mg/dL 161* 204* 200* Assessment & Plan #Acute hypoxic respiratory failure #Non-small cell cancer of right lung (Multi) Ms. Melissa Dubose is a 64 yo female with PMHx of of CAD s/p CABG in 2015, COPD, HTN, afib, T2DM, ICM HFimpEF (11/2024 TTE EF 50-55%) on hospital day 13 admitted for acute hypoxic respiratory failure requiring mechanical ventilation. She originally presented to [facility] 03/21 for 1 week of progressive SOB and R sided chest pain for several months. Noted to have R hilar mass on CT chest measuring 5x4.7 cm and invading into the adjacent mediastinum with R mainstem bronchus narrowing and complete occlusion of the proximal RUL bronchus. Intubated en route to the MICU 03/22 due to increasing O2 requirements. Extubated 03/26 with stable respiratory status since. MICU course significant for bronchoscopy 03/24 with stent of proximal R mainstem bronchus and biopsy with path report of NSCLC favoring adenocarcinoma. Currently being managed by [facility] oncology for acute hypoxic resp failure and NSCLC favoring adenocarcinoma since 03/28/2025 Updates 04/06/2025 Touch base with social media editor for discharge to nursing facility. She is not a candidate for rehab Daily AM CXR while inpatient to monitor PTX; CXR today showing stable size of PTX on initial review If patient acutely decompensates, can transfer for urgent chest tube Otherwise, plan for follow up with pulmonary for bronchoscopy in 3-4 weeks for evaluation of stent removal OP thoracic onc at [facility] (Dr. Escobedo staff working on scheduling appt) OP rad onc at [facility] w/ Dr. Arroyo - will fax notes over to office AR referral faxed 04/02, follow up on Saturday. Discussed w/ Dr. Escobedo. OK to complete AR prior to getting chemotherapy. # R moderate pneumothorax Currently on 1.5 L NC. No worsening SOB per patient or increased WOB. Patient received thoracentesis by IR 03/31 for drainage of bilateral pleural effusions to improve oxygenation. Patient was weaned to from 2 L to 1.5 L NC overnight. C/f loss of air, CXR obtained 03/31 showing redemonstration of R hilar mass, enlarged cardiac silhouette, course interstitial opacities involving the perihilar regions, lung bases, atelectasis, and small bilateral pleural effusions. No pneumothorax seen. Repeat CXR 03/31 showing moderate to large right pneumothorax. Repeat CXR 04/04>04/05>04/06 showing stable size of PTX. PLAN: Daily AM CXR At this time no indication for chest tube per Pulm Wean O2 as tolerated to this goal O2 is 88-92% (COPD). Prior to discharge will arrange for outpatient Pulm f/u Albuterol PRN # New right hilar mass s/p biopsy, NSCLC favoring adenocarcinoma R mainstem bronchus narrowing s/p stent Surgical path from R lung biopsy 03/24 showing NSCLC carcinoma, favor adenocarcinoma in 4R lymph node, tumor cells positive for TTF-1 (8G7G3) and CK7, negative for p40. Viable tumor nuclei: 20%. TPS 90%. CT chest 03/21 with 5x4.7cm R hilar mass invading into the adjacent mediastinum causing compression of the R mainstem bronchus and proximal RUL bronchus. CXR 03/23 showing interval worsening and collapse of the RUL. S/p bronchoscopy with stent and biopsy 03/24. CT C/A/P 03/28 showing re-demonstrated R hilar mass now with R bronchial stent stent as well as L adrenal 2 cm nodule and hypodense lesion in the L anterior perihepatic space. No mets on MRI brain 03/29. PET-CT inpatient 03/31 showing redemonstrated R hilar mass and possible metastases to cervical, thoracic, and abdominopelvic lymph nodes, subcutaneous tissues of the chest/abdomen/pelvis and within the peritoneum, the right humeral diaphysis, and left adrenal gland. Received 8Gy in 1 fraction to R hilar mass 04/01. PT/OT recommending acute rehab but patient will not be able to get chemo or radiation while there; emailed Dr. Escobedo 04/01 regarding optimal tx timing PLAN: Follow up on NGS Follow up on outpatient thoracic onc follow up (pt prefers [facility]) Supportive onc recs 03/30: start acetaminophen 975mg PO q8h PRN for mild pain, start oxycodone IR 5mg PO q6h PRN for moderate to severe pain, start scheduled tizanidine 4mg PO once daily HS (before sleep per pt preference; dc PRN tizanidine) Change prochlorperazine 10mg PO/IV q6h PRN for n/v, first line, change ondansetron 4mg PO/IV q6h PRN for n/v, second line scheduled Miralax, start Miralax 17g PO BID/PRN for constipation # 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 Patient denies orthopnea, with 2+ pitting edema bilaterally; per daughter this is a significant improvement from past volume status. Echo 03/22 showing no regional left ventricular wall motion abnormalities, normal LV cavity size, no LVH, mildly increased septal wall thickness. PLAN: Monitor volume status Continue Entresto # HTN PLAN: Continue amlodipine Continue metoprolol # CAD s/p CABG PLAN: Continue ezetimibe Continue atorvastatin # Afib PLAN: Continue metoprolol Continue Eliquis # DM PLAN: Continue on SS#1 # GERD PLAN: Cont pantoprazole Brissa Barnes MD Internal Medicine, PGY1 Cosigned by Shantanu Gilliland MD at 04/06/2025 10:42 PM EDT Associated attestation - Shantanu Gilliland MD - 04/06/2025 10:42 PM EDT I saw and evaluated the patient. I personally obtained the back and critical portions of the history and physical exam or was physically present for back and critical portions performed by the resident/fellow. I reviewed the resident/fellow's documentation and discussed the patient with the resident/fellow. I agree with the resident/fellow's medical decision making as documented in the note. Physical Therapy Physical Therapy Treatment Patient Name: Melissa Dubose Department: [facility] Room: [address] [place] [address] Today's Date: 04/05/2025 Time Calculation Start Time: 1420 Stop Time: 1512 Time Calculation (min): 52min Total treatment time =40 mins NB=12 mins Assessment/Plan PT Assessment PT Assessment Results: Decreased strength, Decreased endurance, Impaired balance, Decreased mobility, Pain Rehab Prognosis: Good Barriers to Discharge Home: Physical needs, Caregiver assistance Caregiver Assistance: Caregiver assistance needed per identified barriers - however, level of patient's required assistance exceeds assistance available at home Physical Needs: Stair navigation into home limited by function/safety, Ambulating household distances limited by function/safety, 24hr mobility assistance needed, 24hr ADL assistance needed, High falls risk due to function or environment End of Session Communication: Bedside nurse, PCT/NA/CTA End of Session Patient Position: Bed, 3 rail up, Alarm off, not on at start of session, Alarm off, caregiver present PT Plan Inpatient/Swing Bed or Outpatient: Inpatient PT Plan Treatment/Interventions: Bed mobility, Transfer training, Gait training, Stair training, Balance training, Strengthening, Endurance training, Therapeutic exercise, Therapeutic activity, Positioning PT Plan: Ongoing PT PT Frequency: 5 times per week PT Discharge Recommendations: High intensity level of continued care Equipment Recommended upon Discharge: (FWW) PT Recommended Transfer Status: Assist x2, Assistive device PT - OK to Discharge: Yes PT Visit Info: PT Received On: 04/05/25 General Visit Information: General Reason for Referral: 64 yo female admitted for acute hypoxic respiratory failure requiring mechanical ventilation. Past Medical History Relevant to Rehab: PMHx of of CAD s/p CABG in 2016, HTN, afib, T2DM, ICM HFimpEF (11/2024 TTE EF 50-55%) Co-Treatment: OT Co-Treatment Reason: Cottx with OT for pt's safety with mobility, decreased activity tolerance and exepedite DC Prior to Session Communication: Bedside nurse Patient Position Received: Bed, 3 rail up, Alarm off, not on at start of session Preferred Learning Style: verbal, visual General Comment: Pt supine in bed upon arrival, pleasant and willing to partiicpate in PT session..Required encouaragement to participate in bed.chair transfers due to fear of fal. NB=12 mins, as pt completing hair/face wash, oral hygiene staff assist Subjective Precautions: Precautions Medical Precautions: Fall precautions, Oxygen therapy device and L/min Date/Time Vitals Session Patient Position Pulse Resp SpO2 BP MAP (mmHg) 04/05/25 1420 During PT -- -- -- -- -- -- 04/05/25 1534 -- -- 91 16 95 % 114/79 91 Vital Signs Comment: 88 bpm, 98% Objective Pain: Pain Assessment Pain Assessment: 0-10 0-10 (Numeric) Pain Score: 6 Pain Type: Acute pain Pain Interventions: Repositioned Cognition: Cognition Overall Cognitive Status: Within Functional Limits Arousal/Alertness: Appropriate responses to stimuli Orientation Level: Oriented X4 Following Commands: Follows all commands and directions without difficulty Postural Control: Static Sitting Balance Static Sitting-Level of Assistance: Close supervision Dynamic Sitting Balance Dynamic Sitting-Level of Assistance: Close supervision Static Standing Balance Static Standing-Level of Assistance: Minimum assistance (RW) Dynamic Standing Balance Dynamic Standing-Level of Assistance: (MinAx2 with RW) Treatments: Bed Mobility Bed Mobility: Yes Bed Mobility 1 Bed Mobility 1: Supine to sitting, Sitting to supine Level of Assistance 1: Moderate assistance Bed Mobility Comments 1: HOB elevated Ambulation/Gait Training Ambulation/Gait Training Performed: Yes Ambulation/Gait Training 1 Surface 1: Level tile Device 1: Rolling walker Assistance 1: (MinAx2) Quality of Gait 1: Diminished heel strike, Forward flexed posture, Narrow base of support, Decreased step length Comments/Distance (ft) 1: 3 sidesteps and 5 ft bed>chair>bed Transfers Transfer: Yes Transfer 1 Transfer From 1: Sit to, Stand to Transfer to 1: Stand, Sit Technique 1: Sit to stand, Stand to sit Transfer Device 1: Walker Transfer Level of Assistance 1: Moderate assistance, +2 Trials/Comments 1: cues for safe hand placement Transfers 2 Transfer From 2: Bed to, Chair with arms to Transfer to 2: Chair with arms, Mat Technique 2: Stand pivot Transfer Device 2: Walker Transfer Level of Assistance 2: Minimum assistance, +2, Moderate verbal cues, Minimal tactile cues Trials/Comments 2: cues for sequencing Stairs Stairs: No Outcome Measures: [facility] Basic Mobility Turning from your back to your side while in a flat bed without using bedrails: A little Moving from lying on your back to sitting on the side of a flat bed without using bedrails: A lot Moving to and from bed to chair (including a wheelchair): A lot Standing up from a chair using your arms (e.g. wheelchair or bedside chair): Total To walk in hospital room: A lot Climbing 3-5 steps with railing: Total Basic Mobility - Total Score: 11 Education Documentation Precautions, taught by Rachele Correa PT at 04/05/2025 4:07 PM. Learner: Patient Readiness: Acceptance Method: Explanation, Demonstration Response: Verbalizes Understanding, Needs Reinforcement Body Mechanics, taught by Rachele Correa PT at 04/05/2025 4:07 PM. Learner: Patient Readiness: Acceptance Method: Explanation, Demonstration Response: Verbalizes Understanding, Needs Reinforcement Mobility Training, taught by Rachele Correa PT at 04/05/2025 4:07 PM. Learner: Patient Readiness: Acceptance Method: Explanation, Demonstration Response: Verbalizes Understanding, Needs Reinforcement Education Comments No comments found. OP EDUCATION: Encounter Problems Encounter Problems (Active) Mobility LTG - Patient will ambulate household distance Start: 04/02/25 PT Problem Pt will perform all aspects of bed mobility at mod indep. (Progressing) Start: 03/30/25 Expected End: 04/13/25 Pt will perform all transfers at mod indep w/ LRAD. (Progressing) Start: 03/30/25 Expected End: 04/13/25 Pt will amb 150' w/ LRAD at mod indep & no LOB. (Progressing) Start: 03/30/25 Expected End: 04/13/25 Pt will negotiate 5 steps w/ L ascending rail at min Ax1 in order to simulate home entrance. (Not Progressing) Start: 03/30/25 Expected End: 04/13/25 Occupational Therapy Occupational Therapy Treatment Name: Melissa Dubose : 1960 Date: 04/05/25 Room: [id number] Time Calculation Start Time: 1419 Stop Time: 1512 Time Calculation (min): 53 min Assessment: Barriers to Discharge Home: Caregiver assistance, Physical needs Caregiver Assistance: Caregiver assistance needed per identified barriers - however, level of patient's required assistance exceeds assistance available at home Physical Needs: 24hr mobility assistance needed, Intermittent ADL assistance needed, In-home setup navigation limited by function/safety, Ambulating household distances limited by function/safety Evaluation/Treatment Tolerance: Patient tolerated treatment well Medical Staff Made Aware: Yes End of Session Communication: Bedside nurse, PCT/NA/CTA End of Session Patient Position: Bed, 3 rail up, Alarm off, not on at start of session, Alarm off, caregiver present (POWER MANAGER present) Plan: Treatment Interventions: ADL retraining, Endurance training, UE strengthening/ROM, Functional transfer training, Patient/family training, Equipment evaluation/education, Compensatory technique education OT Frequency: 4 times per week (Based on current functional status and rehab potential, patient is anticipated to tolerate and benefit from 5 or more days per week of skilled rehabilitative therapy after discharge from this acute inpatient hospitalization.) OT Discharge Recommendations: High intensity level of continued care Equipment Recommended upon Discharge: Bedside commode OT Recommended Transfer Status: Moderate assist, Assist of 2 OT - OK to Discharge: Yes Subjective General: OT Last Visit OT Received On: 04/05/25 Co-Treatment: PT Co-Treatment Reason: Maximize pt's safety, attempt to see pt earlier in day with pt working on paperwork at 1149, co-treat to expedite d/c and increase pt's potential during session Prior to Session Communication: Bedside nurse Patient Position Received: Bed, 3 rail up, Alarm off, not on at start of session Family/Caregiver Present: Yes Caregiver Feedback: Father present at beginning of session - exits room at start of session General Comment: Pt pleasant and agreeable to OT session - states Please don't let me fall and break a hip, I am almost ready to leave the hospital. Reassurance provided throughout Precautions: Hearing/Visual Limitations: Readers Medical Precautions: Fall precautions, Oxygen therapy device and L/min Lines/Tubes/Drains: External Urinary Catheter (Active) Number of days: 0 Cognition: Overall Cognitive Status: Within Functional Limits Arousal/Alertness: Appropriate responses to stimuli Orientation Level: Oriented X4 Following Commands: Follows all commands and directions without difficulty Pain Assessment: Pain Assessment Pain Assessment: 0-10 0-10 (Numeric) Pain Score: 6 Pain Type: Acute pain Pain Interventions: Repositioned Response to Interventions: Content/relaxed Objective Activities of Daily Living: Grooming Grooming Level of Assistance: Minimum assistance Grooming Where Assessed: Chair Grooming Comments: Increased time and Min A for completion of hair washing in chair - following setup assist, pt requires assist for wetting hair, she is able to lather soap, requires assist for rinsing hair - cues for positioning and deep breathing to increase tolerance.Pt also completed oral hygiene and face washing with SUP in chair. UE Dressing UE Dressing Level of Assistance: Minimum assistance UE Dressing Where Assessed: Bed level UE Dressing Comments: Cues for UE positioning to increase IND, Min A for balancement around back and up shoulders LE Dressing Sock Level of Assistance: Dependent LE Dressing Where Assessed: Bed level LE Dressing Comments: Pt denies completing footwear management 2/2 fatigue - total assist to don/doff socks Bed Mobility/Transfers: Bed Mobility Bed Mobility: Yes Bed Mobility 1 Bed Mobility 1: Supine to sitting, Sitting to supine Level of Assistance 1: Moderate assistance Bed Mobility Comments 1: Reinforced technique and positioning, Mod A for LE management and bringing trunk into upright sitting Transfers Transfer: Yes Transfer 1 Transfer From 1: Sit to, Stand to Transfer to 1: Stand, Sit Technique 1: Sit to stand, Stand to sit Transfer Device 1: Walker Transfer Level of Assistance 1: Moderate assistance, +2 Trials/Comments 1: Cues for positioning, bed height elevated, Mod A x2 for lifting to stand Transfers 2 Transfer From 2: Bed to Transfer to 2: Chair with arms Technique 2: Stand pivot Transfer Device 2: Walker Transfer Level of Assistance 2: Minimum assistance Trials/Comments 2: Once standing, Min A x2 for standing balance, cues for body and walker positioning, similar assist for return trf Therapy/Activity: Therapeutic Activity Therapeutic Activity Performed: Yes Therapeutic Activity 1: Static sitting EOB for 5-10 minutes, cues for improved positioning Therapeutic Activity 2: Functional transfer bed to chair and back with Min - Mod A x2. Education on technique and benefit of upright sitting in chair. Pt tolerates sitting up for approx 15 minutes before returning to bed. Therapeutic Activity 3: Education on walker safety - cues for follow through Outcome Measures: [facility] Daily Activity Putting on and taking off regular lower body clothing: A lot Bathing (including washing, rinsing, drying): A lot Putting on and taking off regular upper body clothing: A little Toileting, which includes using toilet, bedpan or urinal: A lot Taking care of personal grooming such as brushing teeth: A little Eating Meals: None Daily Activity - Total Score: 16 Education Documentation Body Mechanics, taught by Saad Antunez OT at 04/05/2025 3:44 PM. Learner: Patient Readiness: Acceptance Method: Explanation, Demonstration Response: Verbalizes Understanding, Needs Reinforcement Comment: ADLs and safety Precautions, taught by Saad Antunez OT at 04/05/2025 3:44 PM. Learner: Patient Readiness: Acceptance Method: Explanation, Demonstration Response: Verbalizes Understanding, Needs Reinforcement Comment: ADLs and safety ADL Training, taught by Sada Antunez OT at 04/05/2025 3:44 PM. Learner: Patient Readiness: Acceptance Method: Explanation, Demonstration Response: Verbalizes Understanding, Needs Reinforcement Comment: ADLs and safety Education Comments No comments found. Goals: Encounter Problems Encounter Problems (Active) ADLs Patient with complete upper body dressing with independent level of assistance donning and doffing all UE clothes with no adaptive equipment while supported sitting (Progressing) Start: 03/30/25 Expected End: 04/20/25 Patient with complete lower body dressing with moderate assist level of assistance donning and doffing all LE clothes with PRN adaptive equipment while supine in bed and supported sitting (Progressing) Start: 03/30/25 Expected End: 04/20/25 Patient will complete daily grooming tasks brushing teeth and washing face/hair with independent level of assistance and PRN adaptive equipment while edge of bed . (Progressing) Start: 03/30/25 Expected End: 04/20/25 Patient will complete toileting including hygiene clothing management/hygiene with moderate assist level of assistance and bedside commode. (Progressing) Start: 03/30/25 Expected End: 04/20/25 EXERCISE/STRENGTHENING Patient will be educated on BUE HEP for increased ADL performance. (Progressing) Start: 03/30/25 Expected End: 04/20/25 TRANSFERS Patient will complete functional transfers with least restrictive device with moderate assist level of assistance. (Progressing) Start: 03/30/25 Expected End: 04/20/25 04/05/25 at 3:45 PM Saad Antunez OT [phone] Progress note Melissa Dubose is a 64 y.o. female on day 13 of admission presenting with Acute hypoxic respiratory failure. Subjective No major event overnight. She c/o sob, cp radiate to back on 1.5 L NC, plaza cath was removed yesterday and she is passing urine with out difficulty, no urgency, hesitancy or difficulty passing urine. Objective Last Recorded Vitals Blood pressure 102/65, pulse 70, temperature 36.6 C (97.9 F), temperature source Temporal, resp. rate 16, height 1.778 m (5' 10 ), weight 117 kg (258 lb 1.6 oz), SpO2 95%. Intake/Output last 3 Shifts: I/O last 3 completed shifts: In: 1080 (9.2 mL/kg) [P.O.:1080] Out: 1425 (12.2 mL/kg) [Urine:1425 (0.3 mL/kg/hr)] Weight: 117.1 kg Physical Exam Cardiovascular: Rate and Rhythm: Normal rate and regular rhythm. Pulses: Normal pulses. Radial pulses are 2+ on the right side and 2+ on the left side. Heart sounds: Normal heart sounds, S1 normal and S2 normal. Pulmonary: Effort: No respiratory distress. Breath sounds: Examination of the right-upper field reveals decreased breath sounds. Examination of the right-middle field reveals decreased breath sounds. Decreased breath sounds present. No wheezing or rhonchi. Medications: Scheduled medications Scheduled Medications[1] Continuous medications Continuous Medications[2] PRN medications PRN Medications[3] Relevant Results CBC: Results from last 7 days Lab Units 04/05/25 0511 04/04/25 0550 04/03/25 0652 WBC AUTO x10*3/uL 8.1 7.6 9.9 HEMOGLOBIN g/dL 12.2 12.7 12.8 PLATELETS AUTO x10*3/uL 217 197 182 BMP: Results from last 7 days Lab Units 04/05/25 0511 04/04/25 1910 04/04/25 0550 SODIUM mmol/L 134* 133* 134* POTASSIUM mmol/L 4.4 4.1 4.5 CHLORIDE mmol/L 99 97* 100 CO2 mmol/L 27 30 27 BUN mg/dL 12 13 12 CREATININE mg/dL 0.59 0.69 0.59 GLUCOSE mg/dL 200* 221* 186* Imaging: Today CXR stable not different that (04/04) Assessment & Plan Acute hypoxic respiratory failure Non-small cell cancer of right lung (Multi) Ms. Melissa Dubose is a 64 yo female with PMHx of of CAD s/p CABG in 2015, COPD, HTN, afib, T2DM, ICM HFimpEF (11/2024 TTE EF 50-55%) on hospital day 13 admitted for acute hypoxic respiratory failure requiring mechanical ventilation. She originally presented to [facility] 03/21 for 1 week of progressive SOB and R sided chest pain for several months. Noted to have R hilar mass on CT chest measuring 5x4.7 cm and invading into the adjacent mediastinum with R mainstem bronchus narrowing and complete occlusion of the proximal RUL bronchus. Intubated en route to the MICU 03/22 due to increasing O2 requirements. Extubated 03/26 with stable respiratory status since. MICU course significant for bronchoscopy 03/24 with stent of proximal R mainstem bronchus and biopsy with path report of NSCLC favoring adenocarcinoma. Currently being managed by [facility] oncology for acute hypoxic resp failure and NSCLC favoring adenocarcinoma since 03/28/2025. Updates 04/05/2025 Touch base with social media editor for discharge to rehab Daily AM CXR while inpatient to monitor PTX; CXR today showing stable size of PTX on initial review If patient acutely decompensates, can transfer for urgent chest tube Otherwise, plan for follow up with pulmonary for bronchoscopy in 3-4 weeks for evaluation of stent removal OP thoracic onc at [facility] (Dr. Escobedo staff working on scheduling appt) OP rad onc at [facility] w/ Dr. Arroyo - will fax notes over to office AR referral faxed 04/02, follow up on Saturday. Discussed w/ Dr. Escobedo. OK to complete AR prior to getting chemotherapy. R moderate pneumothorax Currently on 1.5 L NC weaned from 3 L overnight. No worsening SOB per patient or increased WOB. Patient received thoracentesis by IR 03/31 for drainage of bilateral pleural effusions to improve oxygenation. Patient was weaned to from 2 L to 1.5 L NC overnight. C/f loss of air, CXR obtained 03/31 showing redemonstration of R hilar mass, enlarged cardiac silhouette, course interstitial opacities involving the perihilar regions, lung bases, atelectasis, and small bilateral pleural effusions. No pneumothorax seen. Repeat CXR 03/31 showing moderate to large right pneumothorax. Repeat CXR 04/05 showing stable size of PTX. Pulmonology consulted for possible intervention. PLAN: Daily AM CXR At this time no indication for chest tube per Pulm Prior to discharge will arrange for outpatient Pulm f/u Acute hypoxic respiratory failure C/f aspiration PNA New PTX. Pt states she is not SOB or on home O2 at baseline. Currently afebrile, VSS. Extubated to HFNC 03/26 and weaned to 5 L NC 03/28. Resp cx growing rare mixed gram positive and gram negative organisms. BCx NGTD. CT chest 03/21 with 5x4.7cm R hilar mass invading into the adjacent mediastinum causing compression of the R mainstem bronchus and proximal RUL bronchus. CXR 03/23 showing interval worsening and collapse of the RUL. CXR 03/29 showing R upper lung atelectasis and small bilateral pleural effusions. S/p bronchoscopy with stent and biopsy 03/24. Likely 2/2 to compression from extensive R hilar mass although pneumonia incl aspiration PNA is a possibility PLAN: Wean O2 as tolerated to this goal O2 is 88-92% (COPD). Albuterol PRN New right hilar mass s/p biopsy, NSCLC favoring adenocarcinoma R mainstem bronchus narrowing s/p stent Surgical path from R lung biopsy 03/24 showing NSCLC carcinoma, favor adenocarcinoma in 4R lymph node, tumor cells positive for TTF-1 (8G7G3) and CK7, negative for p40. Viable tumor nuclei: 20%. TPS 90%. CT chest 03/21 with 5x4.7cm R hilar mass invading into the adjacent mediastinum causing compression of the R mainstem bronchus and proximal RUL bronchus. CXR 03/23 showing interval worsening and collapse of the RUL. S/p bronchoscopy with stent and biopsy 03/24. CT C/A/P 03/28 showing re-demonstrated R hilar mass now with R bronchial stent stent as well as L adrenal 2 cm nodule and hypodense lesion in the L anterior perihepatic space. No mets on MRI brain 03/29. PET-CT inpatient 03/31 showing redemonstrated R hilar mass and possible metastases to cervical, thoracic, and abdominopelvic lymph nodes, subcutaneous tissues of the chest/abdomen/pelvis and within the peritoneum, the right humeral diaphysis, and left adrenal gland. Received 8Gy in 1 fraction to R hilar mass 04/01. PT/OT recommending acute rehab but patient will not be able to get chemo or radiation while there; emailed Dr. 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 Patient denies orthopnea, with 2+ pitting edema bilaterally; per daughter this is a significant improvement from past volume status. Echo 03/22 showing no regional left ventricular wall motion abnormalities, normal LV cavity size, no LVH, mildly increased septal wall thickness. PLAN: Monitor volume status Continue Entresto HTN PLAN: Continue amlodipine Continue metoprolol CAD s/p CABG PLAN: Continue ezetimibe Continue atorvastatin Afib PLAN: Continue metoprolol Continue Eliquis DM PLAN: Cont SSI #1, lispro, 0-5 Units, subcutaneous, q4h GERD PLAN: Cont pantoprazole Brissa Barnes MD Internal Medicine, PGY1 [1] albuterol, 2.5 mg, nebulization, TID apixaban, 5 mg, oral, BID atorvastatin, 40 mg, oral, Daily ezetimibe, 10 mg, oral, Daily insulin lispro, 0-5 Units, subcutaneous, TID AC metoprolol tartrate, 25 mg, oral, BID pantoprazole, 40 mg, oral, Daily before breakfast sacubitriL-valsartan, 1 tablet, oral, BID sodium chloride, 3 mL, nebulization, TID spironolactone, 12.5 mg, oral, Daily tiZANidine, 4 mg, oral, Nightly [2] [3] PRN medications: acetaminophen, benzocaine-menthol, dextrose, dextrose, eucerin, glucagon, glucagon, ipratropium-albuteroL, ondansetron OR ondansetron, oxyCODONE, oxygen, phenyleph-min oil-petrolatum, polyethylene glycol, prochlorperazine OR prochlorperazine Cosigned by Shantanu Gilliland MD at 04/05/2025 8:36 PM EDT Associated attestation - Shantanu Gilliland MD - 04/05/2025 8:36 PM EDT I saw and evaluated the patient. I personally obtained the back and critical portions of the history and physical exam or was physically present for back and critical portions performed by the resident/fellow. I reviewed the resident/fellow's documentation and discussed the patient with the resident/fellow. I agree with the resident/fellow's medical decision making as documented in the note. Patient is a 64-year-old female who presented with acute hypoxic respiratory failure. Patient was found to have right hilar mass invading the mediastinum. Patient has stent placement. The biopsy was consistent with non-small cell lung cancer likely adenocarcinoma. Patient had developed pneumothorax which is stable. Patient's radiation therapy to hilar mass. Plan is for patient to be discharged to SNF followed by appointment with outpatient oncology for further management. Spiritual Care Visit Spiritual Care Request Reason for Visit: Routine Visit: Introduction Focus of Care: Visited With: Patient and family together Spiritual Care Annotation Annotation: Furniture Sander introduced self and role to patient Melissa Dubose and her father. They welcomed visit from facility Nohemi natarajan. Hand all around patternmaker provided before and after visit. Patient expressed she was feeling much better than a couple of weeks ago and was expecting discharge within the next couple of days. Patient expressed hope for treatment to come and was thankful it would be closer to home. Patient and father were appreciative of visit and did not have any needs at this time. Spiritual Care remains available as needed/requested. Rev. Carmencita Martinez, iv, [facility] 03/31/25 1000 Discharge Planning Living Arrangements Children (Pt is [place]. Information is obtained from pt's fatherBen.) Support Systems Children;Parent Assistance Needed ADLs Type of Residence Private residence Number of Stairs to Enter Residence 2 Number of Stairs Within Residence 10 Do you have animals or pets at home? Yes Type of Animals or Pets a dog Home or Post Acute Services In home services;Post acute facilities (Rehab/SNF/etc) Type of Post Acute Facility Services [facility];Rehab Type of Home Care Services Home OT;Home PT;Home nursing visits Expected Discharge Disposition (TBD) Does the patient need discharge transport arranged? Yes [employer] coordination needed? Yes Has discharge transport been arranged? No Financial Resource Strain How hard is it for you to pay for the very basics like food, housing, medical care, and heating? Not very Housing Stability In the last 12 months, was there a time when you were not able to pay the mortgage or rent on time? N In the past 12 months, how many times have you moved where you were living? 0 At any time in the past 12 months, were you homeless or living in a chcf (including now)? N Transportation Needs In the past 12 months, has lack of transportation kept you from medical appointments or from getting medications? no In the past 12 months, has lack of transportation kept you from meetings, work, or from getting things needed for daily living? No Patient Choice Provider Choice list and CMS website (https://medicare.gov/care-compare #search) for post-acute Quality and Resource Measure Data were provided and reviewed with: Family;Patient Patient / Family choosing to utilize agency / facility established prior to hospitalization No Stroke Family Assessment Stroke Family Assessment Needed No Intensity of Service Intensity of Service 0-30 min Pt scheduled for a thoracentesis today. Care team hopes to wean O2 after. PT currently recs high and OT recs high vs mod. Per care team, urgent RT is planned for tomorrow. Care team aware that pt cannot be in active tx for AR. SW will meet with pt/family to discuss. SW will follow. Mariano Melvin [facility] 03/31/2025 1115 SW met with pt and father bedside to discuss AR. SW described the difference between AR and SNF and pt is amenable to whatever will get her up and moving again. There is an AR at [facility] in [place]. WES asked the care team to order a PM&R. Further discharge planning pending updates from the care team. SW will follow. Mariano Melvin [facility] 03/31/2025 1205 Per care team, pt is being evaluated for inpatient chemo by Thoracic Onc. [facility] is planning to see pt soon after discharge and may plan RT soon after that. WES requested that care team meet with pt to discuss before SW returns to room to discuss SNF rather than AR. SW will follow. Mariano Melvin [facility] 04/02/2025 1020 Per care team, no plans for chemo or RT. PM&R recs AR. Referral sent to [facility]. WES will follow. Mariano Melvin [facility] 04/02/2025 1500 Referral faxed to [facility] at [phone]. WES will follow. Mariano Melvin [facility] 04/05/2025 1050 WES called [facility] and spoke to Jenifer [phone] to follow up on referral. ALEX HO wants updated clinicals and PT/OT. WES requested new PT and OT notes via the whiteboard. SW will follow. Mariano Melvin [facility] 04/05/2025 1620 Updated clinicals, incl PT and OT, faxed to [facility]. SW will follow. Mariano Melvin [facility] [employer] Melissa Dubose is a 64 y.o. female on day 13 of admission presenting with Acute hypoxic respiratory failure. Subjective Interval hx: pt had run of A-fib w/ RVR to 130s-140s. Pt given 500cc bolus & PO metoprolol 25mg Pt denies any acute or worsening issues including dyspnea, chest pain, fever, chills this AM. Remains stable on NC. CXR: on initial read appears unchanged PTX from night prior pending final Rads read Objective Last Recorded Vitals BP 104/63 (BP Location: Left arm, Patient Position: Lying) Pulse 79 Temp 36.2 C (97.2 F) (Temporal) Resp 16 Wt 117 kg (258 lb 1.6 oz) SpO2 95% Intake/Output last 3 Shifts: Intake/Output Summary (Last 24 hours) at 04/04/2025 1306 Last data filed at 04/04/2025 1000 Gross per 24 hour Intake 640 ml Output 1325 ml Net -685 ml Admission Weight Weight: 111 kg (245 lb 2.4 oz) (03/26/25 0600) Daily Weight 03/30/25 : 117 kg (258 lb 1.6 oz) Image Results XR chest 1 view Narrative: Interpreted By: Julia Duncan, STUDY: XR CHEST 1 VIEW; 04/03/2025 8:29 am INDICATION: Signs/Symptoms:pneumothorax monitoring. COMPARISON: Radiograph dated 04/02/2025 and PET-CT dated 04/01/2025 ACCESSION NUMBER(S): [id number] ORDERING CLINICIAN: LISSETTE MAHARAJ FINDINGS: Status post median sternotomy. The cardiac silhouette size is within normal limits. Calcification of the aortic knob. Dominant masslike density in the right perihilar region again seen. Unchanged moderate right apical pneumothorax. Bibasilar atelectasis No acute osseous change. Impression: 1. Unchanged moderate right apical pneumothorax. 2. Redemonstration of dominant masslike density in the right perihilar region corresponding to hypermetabolic mass seen on recent PET-CT with right upper lobe collapse. Signed by: Julia Ng 04/03/2025 9:33 AM Dictation workstation: [id number] PHYSICAL EXAM Physical Exam Vitals and nursing note reviewed. Constitutional: General: She is not in acute distress. Appearance: She is ill-appearing. HENT: Head: Normocephalic and atraumatic. Mouth/Throat: Dentition: Abnormal dentition. Comments: Absent dentition Cardiovascular: Rate and Rhythm: Normal rate and regular rhythm. Pulses: Normal pulses. Radial pulses are 2+ on the right side and 2+ on the left side. Heart sounds: Normal heart sounds, S1 normal and S2 normal. Pulmonary: Effort: No respiratory distress. Breath sounds: Examination of the right-upper field reveals decreased breath sounds. Examination of the right-middle field reveals decreased breath sounds. Decreased breath sounds present. No wheezing or rhonchi. Abdominal: General: There is no distension. Palpations: Abdomen is soft. Tenderness: There is no abdominal tenderness. Skin: General: Skin is warm and dry. Neurological: General: No focal deficit present. Mental Status: She is alert and oriented to person, place, and time. Psychiatric: Behavior: Behavior is cooperative. Relevant Results Assessment & Plan Ms. 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 She originally presented to [facility] 03/21 for 1 week of progressive SOB and R sided chest pain for several months. Noted to have R hilar mass on CT chest measuring 5x4.7 cm and invading into the adjacent mediastinum with R mainstem bronchus narrowing and complete occlusion of the proximal RUL bronchus. Intubated en route to the MICU 03/22 due to increasing O2 requirements. Extubated 03/26 with stable respiratory status since. MICU course significant for bronchoscopy 03/24 with stent of proximal R mainstem bronchus and biopsy with path report of NSCLC favoring adenocarcinoma. Currently being managed by [facility] oncology for acute hypoxic resp failure and NSCLC favoring adenocarcinoma. Updates 04/04/25 : Daily AM CXR while inpatient to monitor PTX; CXR today showing stable size of PTX on initial review If patient acutely decompensates, can transfer for urgent chest tube Otherwise, plan for follow up with pulmonary for bronchoscopy in 3-4 weeks for evaluation of stent removal Will attempt TOV today OP thoracic onc at [facility] (Dr. Escobedo staff working on scheduling appt) OP rad onc at [facility] w/ Dr. Arroyo - will fax notes over to office AR referral faxed 04/02, follow up on Saturday. Discussed w/ Dr. Escobedo. OK to complete AR prior to getting chemotherapy. R moderate pneumothorax Currently on 3 L NC weaned from 5 L overnight. No worsening SOB per patient or increased WOB. Patient received thoracentesis by IR 03/31 for drainage of bilateral pleural effusions to improve oxygenation. Patient was weaned to from 2 L to 1 L NC overnight. C/f loss of air, CXR obtained 03/31 showing redemonstration of R hilar mass, enlarged cardiac silhouette, course interstitial opacities involving the perihilar regions, lung bases, atelectasis, and small bilateral pleural effusions. No pneumothorax seen. Repeat CXR 03/31 showing moderate to large right pneumothorax. Repeat CXR 04/02 showing stable size of PTX. Pulmonology consulted for possible intervention. PLAN: Daily AM CXR At this time no indication for chest tube per Pulm Prior to discharge will arrange for outpatient Pulm f/u Acute hypoxic respiratory failure C/f aspiration PNA New PTX. Pt states she is not SOB or on home O2 at baseline. Currently afebrile, VSS. Extubated to HFNC 03/26 and weaned to 5 L NC 03/28. Resp cx growing rare mixed gram positive and gram negative organisms. BCx NGTD. CT chest 03/21 with 5x4.7cm R hilar mass invading into the adjacent mediastinum causing compression of the R mainstem bronchus and proximal RUL bronchus. CXR 03/23 showing interval worsening and collapse of the RUL. CXR 03/29 showing R upper lung atelectasis and small bilateral pleural effusions. S/p bronchoscopy with stent and biopsy 03/24. Likely 2/2 to compression from extensive R hilar mass although pneumonia incl aspiration PNA is a possibility PLAN: Wean O2 as tolerated Albuterol PRN New right hilar mass s/p biopsy, NSCLC favoring adenocarcinoma R mainstem bronchus narrowing s/p stent Surgical path from R lung biopsy 03/24 showing NSCLC carcinoma, favor adenocarcinoma in 4R lymph node, tumor cells positive for TTF-1 (8G7G3) and CK7, negative for p40. Viable tumor nuclei: 20%. TPS 90%. CT chest 03/21 with 5x4.7cm R hilar mass invading into the adjacent mediastinum causing compression of the R mainstem bronchus and proximal RUL bronchus. CXR 03/23 showing interval worsening and collapse of the RUL. S/p bronchoscopy with stent and biopsy 03/24. CT C/A/P 03/28 showing re-demonstrated R hilar mass now with R bronchial stent stent as well as L adrenal 2 cm nodule and hypodense lesion in the L anterior perihepatic space. No mets on MRI brain 03/29. PET-CT inpatient 03/31 showing redemonstrated R hilar mass and possible metastases to cervical, thoracic, and abdominopelvic lymph nodes, subcutaneous tissues of the chest/abdomen/pelvis and within the peritoneum, the right humeral diaphysis, and left adrenal gland. Received 8Gy in 1 fraction to R hilar mass 04/01. PT/OT recommending acute rehab but patient will not be able to get chemo or radiation while there; emailed Dr. 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 Patient denies orthopnea, with 2+ pitting edema bilaterally; per daughter this is a significant improvement from past volume status. Echo 03/22 showing no regional left ventricular wall motion abnormalities, normal LV cavity size, no LVH, mildly increased septal wall thickness. PLAN: Monitor volume status Continue Entresto HTN PLAN: Continue amlodipine Continue metoprolol CAD s/p CABG PLAN: Continue ezetimibe Continue atorvastatin Afib PLAN: Continue metoprolol Continue Eliquis DM PLAN: Cont SSI #1, lispro, 0-5 Units, subcutaneous, q4h GERD PLAN: Cont pantoprazole Alaina Márquez MD Cosigned by Shantanu Gilliland MD at 04/04/2025 10:04 PM EDT Associated attestation - Shantanu Gilliland MD - 04/04/2025 10:04 PM EDT I saw and evaluated the patient. I personally obtained the back and critical portions of the history and physical exam or was physically present for back and critical portions performed by the resident/fellow. I reviewed the resident/fellow's documentation and discussed the patient with the resident/fellow. I agree with the resident/fellow's medical decision making as documented in the note. Patient is a 64 year old female who was admitted due to acute hypoxic respiratory failure. Patient was found to have right hilar mass with biopsy suggesting NSCLC favoring adenocarcinoma. Patient underwent thoracocentesis. Patient was found to have new pneumothorax. Oxygen requirement is slowly improving. Plan is to discharge to acute rehab followed by follow with medical oncology and radiation oncology. Melissa Dubose is a 64 y.o. female on day 12 of admission presenting with Acute hypoxic respiratory failure. Subjective Pt denies any acute or worsening issues including dyspnea, chest pain, fever, chills. Remains stable on NC. CXR: unchanged PNX Objective Last Recorded Vitals BP 111/78 (BP Location: Left arm, Patient Position: Lying) Pulse 84 Temp 36.6 C (97.9 F) (Temporal) Resp 16 Wt 117 kg (258 lb 1.6 oz) SpO2 94% Intake/Output last 3 Shifts: Intake/Output Summary (Last 24 hours) at 04/03/2025 1603 Last data filed at 04/03/2025 1549 Gross per 24 hour Intake 150 ml Output 1450 ml Net -1300 ml Admission Weight Weight: 111 kg (245 lb 2.4 oz) (03/26/25 0600) Daily Weight 03/30/25 : 117 kg (258 lb 1.6 oz) Image Results XR chest 1 view Narrative: Interpreted By: Julia Duncan, STUDY: XR CHEST 1 VIEW; 04/03/2025 8:29 am INDICATION: Signs/Symptoms:pneumothorax monitoring. COMPARISON: Radiograph dated 04/02/2025 and PET-CT dated 04/01/2025 ACCESSION NUMBER(S): [id number] ORDERING CLINICIAN: LISSETTE MAHARAJ FINDINGS: Status post median sternotomy. The cardiac silhouette size is within normal limits. Calcification of the aortic knob. Dominant masslike density in the right perihilar region again seen. Unchanged moderate right apical pneumothorax. Bibasilar atelectasis No acute osseous change. Impression: 1. Unchanged moderate right apical pneumothorax. 2. Redemonstration of dominant masslike density in the right perihilar region corresponding to hypermetabolic mass seen on recent PET-CT with right upper lobe collapse. Signed by: Julia Ng 04/03/2025 9:33 AM Dictation workstation: [id number] PHYSICAL EXAM Relevant Results Assessment & Plan Ms. 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 She originally presented to [facility] 03/21 for 1 week of progressive SOB and R sided chest pain for several months. Noted to have R hilar mass on CT chest measuring 5x4.7 cm and invading into the adjacent mediastinum with R mainstem bronchus narrowing and complete occlusion of the proximal RUL bronchus. Intubated en route to the MICU 03/22 due to increasing O2 requirements. Extubated 03/26 with stable respiratory status since. MICU course significant for bronchoscopy 03/24 with stent of proximal R mainstem bronchus and biopsy with path report of NSCLC favoring adenocarcinoma. Currently being managed by [facility] oncology for acute hypoxic resp failure and NSCLC favoring adenocarcinoma. Updates 04/03/25: Daily AM CXR while inpatient to monitor PTX; CXR 04/03 showing stable size of PTX If patient acutely decompensates, can transfer for urgent chest tube Otherwise, plan for follow up with pulmonary for bronchoscopy in 3-4 weeks for evaluation of stent removal Restarted eliquis today given no further plans for pulm intervention Consider plaza removal/TOV tomorrow OP thoracic onc at [facility] (Dr. Escobedo staff working on scheduling appt) OP rad onc at [facility] w/ Dr. Arroyo - will fax notes over to office AR referral faxed 04/02, follow up on Saturday. Discussed w/ Dr. Escobedo. OK to complete AR prior to getting chemotherapy. R moderate pneumothorax Currently on 3 L NC weaned from 5 L overnight. No worsening SOB per patient or increased WOB. Patient received thoracentesis by IR 03/31 for drainage of bilateral pleural effusions to improve oxygenation. Patient was weaned to from 2 L to 1 L NC overnight. C/f loss of air, CXR obtained 03/31 showing redemonstration of R hilar mass, enlarged cardiac silhouette, course interstitial opacities involving the perihilar regions, lung bases, atelectasis, and small bilateral pleural effusions. No pneumothorax seen. Repeat CXR 03/31 showing moderate to large right pneumothorax. Repeat CXR 04/02 showing stable size of PTX. Pulmonology consulted for possible intervention. PLAN: Daily AM CXR Acute hypoxic respiratory failure C/f aspiration PNA New PTX. Pt states she is not SOB or on home O2 at baseline. Currently afebrile, VSS. Extubated to HFNC 03/26 and weaned to 5 L NC 03/28. Resp cx growing rare mixed gram positive and gram negative organisms. BCx NGTD. CT chest 03/21 with 5x4.7cm R hilar mass invading into the adjacent mediastinum causing compression of the R mainstem bronchus and proximal RUL bronchus. CXR 03/23 showing interval worsening and collapse of the RUL. CXR 03/29 showing R upper lung atelectasis and small bilateral pleural effusions. S/p bronchoscopy with stent and biopsy 03/24. Likely 2/2 to compression from extensive R hilar mass although pneumonia incl aspiration PNA is a possibility PLAN: Wean O2 as tolerated Albuterol PRN New right hilar mass s/p biopsy, NSCLC favoring adenocarcinoma R mainstem bronchus narrowing s/p stent Surgical path from R lung biopsy 03/24 showing NSCLC carcinoma, favor adenocarcinoma in 4R lymph node, tumor cells positive for TTF-1 (8G7G3) and CK7, negative for p40. Viable tumor nuclei: 20%. TPS 90%. CT chest 03/21 with 5x4.7cm R hilar mass invading into the adjacent mediastinum causing compression of the R mainstem bronchus and proximal RUL bronchus. CXR 03/23 showing interval worsening and collapse of the RUL. S/p bronchoscopy with stent and biopsy 03/24. CT C/A/P 03/28 showing re-demonstrated R hilar mass now with R bronchial stent stent as well as L adrenal 2 cm nodule and hypodense lesion in the L anterior perihepatic space. No mets on MRI brain 03/29. PET-CT inpatient 03/31 showing redemonstrated R hilar mass and possible metastases to cervical, thoracic, and abdominopelvic lymph nodes, subcutaneous tissues of the chest/abdomen/pelvis and within the peritoneum, the right humeral diaphysis, and left adrenal gland. Received 8Gy in 1 fraction to R hilar mass 04/01. PT/OT recommending acute rehab but patient will not be able to get chemo or radiation while there; emailed Dr. 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 Patient denies orthopnea, with 2+ pitting edema bilaterally; per daughter this is a significant improvement from past volume status. Echo 03/22 showing no regional left ventricular wall motion abnormalities, normal LV cavity size, no LVH, mildly increased septal wall thickness. PLAN: Monitor volume status Continue Entresto HTN PLAN: Continue amlodipine Continue metoprolol CAD s/p CABG PLAN: Continue ezetimibe Continue atorvastatin Afib PLAN: Continue metoprolol Continue Eliquis DM PLAN: Cont SSI #1, lispro, 0-5 Units, subcutaneous, q4h GERD PLAN: Cont pantoprazole Merlin Sidhu MD Cosigned by Lissette Maharaj MD at 04/04/2025 7:04 AM EDT Associated attestation - Lissette Maharaj MD - 04/04/2025 7:04 AM EDT I saw and evaluated the patient. I personally obtained the back and critical portions of the history and physical exam or was physically present for back and critical portions performed by the resident/fellow. I reviewed the resident/fellow's documentation and discussed the patient with the resident/fellow. I agree with the resident/fellow's medical decision making as documented in the note. Lissette Maharaj MD Melissa Dubose is a 64 y.o. female on day 12 of admission presenting with Acute hypoxic respiratory failure. Subjective NAONE. Patient reports she is doing well. ROS Denies chest pain Breathing much improved from prior Remains on 3L o2 Pending discharge to Acute rehab early next week per primary, Objective Physical Exam AAOx3 Respiratory Distress: none, comfortable on conversation Respiratory failure: 3L NC Diminished R RRR, no murmur Lower extremity swelling: none MSK: Moves all spontaneously Last Recorded Vitals Blood pressure 94/58, pulse 81, temperature 36.6 C (97.9 F), temperature source Temporal, resp. rate 16, height 1.778 m (5' 10 ), weight 117 kg (258 lb 1.6 oz), SpO2 94%. Intake/Output last 3 Shifts: I/O last 3 completed shifts: In: 150 (1.3 mL/kg) [P.O.:150] Out: 1725 (14.7 mL/kg) [Urine:1725 (0.4 mL/kg/hr)] Weight: 117.1 kg Relevant Results Scheduled medications Scheduled Medications[1] Continuous medications Continuous Medications[2] PRN medications PRN Medications[3] Results for orders placed or performed during the hospital encounter of 03/22/25 (from the past 24 hours) POCT GLUCOSE Result Value Ref Range POCT Glucose 250 (H) 74 - 99 mg/dL POCT GLUCOSE Result Value Ref Range POCT Glucose 229 (H) 74 - 99 mg/dL Renal Function Panel Result Value Ref Range Glucose 202 (H) 74 - 99 mg/dL Sodium 134 (L) 136 - 145 mmol/L Potassium 4.0 3.5 - 5.3 mmol/L Chloride 97 (L) 98 - 107 mmol/L Bicarbonate 29 21 - 32 mmol/L Anion Gap 12 10 - 20 mmol/L Urea Nitrogen 12 6 - 23 mg/dL Creatinine 0.61 0.50 - 1.05 mg/dL eGFR >90 >60 mL/min/1.73m*2 Calcium 9.5 8.6 - 10.6 mg/dL Phosphorus 2.8 2.5 - 4.9 mg/dL Albumin 3.1 (L) 3.4 - 5.0 g/dL CBC and Auto Differential Result Value Ref Range WBC 9.9 4.4 - 11.3 x10*3/uL nRBC 0.0 0.0 - 0.0 /100 WBCs RBC 4.18 4.00 - 5.20 x10*6/uL Hemoglobin 12.8 12.0 - 16.0 g/dL Hematocrit 41.8 36.0 - 46.0 % MCV 100 80 - 100 fL MCH 30.6 26.0 - 34.0 pg MCHC 30.6 (L) 32.0 - 36.0 g/dL RDW 13.1 11.5 - 14.5 % Platelets 182 150 - 450 x10*3/uL Neutrophils % 78.2 40.0 - 80.0 % Immature Granulocytes %, Automated 0.6 0.0 - 0.9 % Lymphocytes % 10.5 13.0 - 44.0 % Monocytes % 7.7 2.0 - 10.0 % Eosinophils % 2.7 0.0 - 6.0 % Basophils % 0.3 0.0 - 2.0 % Neutrophils Absolute 7.75 (H) 1.20 - 7.70 x10*3/uL Immature Granulocytes Absolute, Automated 0.06 0.00 - 0.70 x10*3/uL Lymphocytes Absolute 1.04 (L) 1.20 - 4.80 x10*3/uL Monocytes Absolute 0.76 0.10 - 1.00 x10*3/uL Eosinophils Absolute 0.27 0.00 - 0.70 x10*3/uL Basophils Absolute 0.03 0.00 - 0.10 x10*3/uL Magnesium Result Value Ref Range Magnesium 1.98 1.60 - 2.40 mg/dL Renal function panel Result Value Ref Range Glucose 173 (H) 74 - 99 mg/dL Sodium 135 (L) 136 - 145 mmol/L Potassium 4.2 3.5 - 5.3 mmol/L Chloride 100 98 - 107 mmol/L Bicarbonate 28 21 - 32 mmol/L Anion Gap 11 10 - 20 mmol/L Urea Nitrogen 12 6 - 23 mg/dL Creatinine 0.57 0.50 - 1.05 mg/dL eGFR >90 >60 mL/min/1.73m*2 Calcium 9.1 8.6 - 10.6 mg/dL Phosphorus 3.1 2.5 - 4.9 mg/dL Albumin 2.9 (L) 3.4 - 5.0 g/dL POCT GLUCOSE Result Value Ref Range POCT Glucose 178 (H) 74 - 99 mg/dL POCT GLUCOSE Result Value Ref Range POCT Glucose 226 (H) 74 - 99 mg/dL CXR, personally reviewed with attending, stable right pneumothorax Assessment & Plan Acute hypoxic respiratory failure Non-small cell cancer of right lung (Multi) 64yoF admitted for acute hypoxic respiratory failure. PMHx Tobacco use disorder Heart failure recovered ejection fraction Ischemic cardiomyopathy Coronary artery disease s/p CABG 2015 Hypertension Atrial fibrillation Chronic obstructive pulmonary disease, documented. Diabetes Mellitus Type 2 Patient admitted for acute hypoxic respiratory failure requiring invasive mechanical ventilation iso postobstructive pneumonia R hilar mass with R mainstem extrinsic compression s/p bronchoscopy with bronchial stent to R mainstem and biopsy revealing NSCLC-adenocarcinoma. 03/28, transferred to general oncology service. Notably, 03/31 R thoracentesis [400cc naresh fluid] c/b iatrogenic pneumothorax [moderate to large right-sided with interval progression]. Patient without evidence of tension pneumothorax with stable o2 requirements as well as comfort from breathing perspective. Patient without acute distress or dyspnea noted on conversation or at rest. Appears patient has been stable for multiple days from respiratory standpoint #AHRF #NSCLC #R Mainstem bronch s/p stent #s/p thora on 03/31 #Right sided pneumothrax -As noted, patient with stable right sided pneumothorax -Stable oxygen requirements, without noted dsypnea, breathing greatly improved symptomatically from admission Plan: -Continue daily CXR while inpatient to assure stability and PRN if symptoms develop. -From pulmonary perspective, okay to restart anticoagulation given multiple days of stability and symptomatic stability -If patient acutely decompensates, can transfer for urgent chest tube -Okay from pulmonary for planned discharge to facility on Saturday/Saturday -Thank you for involving us in the care of this patient. Pulmonary will sign off at this time, however, if needed, please re-engage! Case seen and discussed with Dr. Clare Mirza MD [1] albuterol, 2.5 mg, nebulization, TID [Held by provider] apixaban, 5 mg, oral, BID atorvastatin, 40 mg, oral, Daily ezetimibe, 10 mg, oral, Daily insulin lispro, 0-5 Units, subcutaneous, TID AC metoprolol tartrate, 25 mg, oral, BID pantoprazole, 40 mg, oral, Daily before breakfast sacubitriL-valsartan, 1 tablet, oral, BID sodium chloride, 3 mL, nebulization, TID spironolactone, 12.5 mg, oral, Daily tiZANidine, 4 mg, oral, Nightly [2] [3] PRN medications: acetaminophen, benzocaine-menthol, dextrose, dextrose, eucerin, glucagon, glucagon, ipratropium-albuteroL, ondansetron OR ondansetron, oxyCODONE, oxygen, phenyleph-min oil-petrolatum, polyethylene glycol, prochlorperazine OR prochlorperazine Cosigned by Nabor Sparks MD at 04/03/2025 2:29 PM EDT Associated attestation - Nabor Sparks MD - 04/03/2025 2:29 PM EDT Pneumothorax Imaging and symptoms stable now for 4 days. No indication for intervention. Okay for discharge for pulmonary perspective. Plan for follow up with pulmonary for bronchoscopy in 3-4 weeks for evaluation of stent removal. I saw and evaluated the patient. I personally obtained the back and critical portions of the history and physical exam or was physically present for back and critical portions performed by the resident/fellow. I reviewed the resident/fellow's documentation and discussed the patient with the resident/fellow. I agree with the resident/fellow's medical decision making as documented in the note. Physical Therapy Physical Therapy Treatment Patient Name: Melissa Dubose Department: [facility] Room: [address] [place] [address] Today's Date: 04/02/2025 Time Calculation Start Time: 1334 Stop Time: 1401 Time Calculation (min): 27 min Assessment/Plan PT Assessment PT Assessment Results: Decreased strength, Decreased endurance, Impaired balance, Decreased mobility, Pain Rehab Prognosis: Good Barriers to Discharge Home: Physical needs, Caregiver assistance Caregiver Assistance: Caregiver assistance needed per identified barriers - however, level of patient's required assistance exceeds assistance available at home Physical Needs: Stair navigation into home limited by function/safety, Ambulating household distances limited by function/safety, 24hr mobility assistance needed, 24hr ADL assistance needed, High falls risk due to function or environment Evaluation/Treatment Tolerance: Patient tolerated treatment well End of Session Communication: Bedside nurse End of Session Patient Position: Bed, 3 rail up, Alarm on PT Plan Inpatient/Swing Bed or Outpatient: Inpatient PT Plan Treatment/Interventions: Bed mobility, Transfer training, Gait training, Stair training, Balance training, Strengthening, Endurance training, Therapeutic exercise, Therapeutic activity, Positioning PT Plan: Ongoing PT PT Frequency: 5 times per week PT Discharge Recommendations: High intensity level of continued care Equipment Recommended upon Discharge: (FWW) PT Recommended Transfer Status: Assist x2, Assistive device PT - OK to Discharge: Yes PT Visit Info: PT Received On: 04/02/25 General Visit Information: General Reason for Referral: 64 yo female admitted for acute hypoxic respiratory failure requiring mechanical ventilation. Past Medical History Relevant to Rehab: PMHx of of CAD s/p CABG in 2015, HTN, afib, T2DM, ICM HFimpEF (11/2024 TTE EF 50-55%) Co-Treatment: OT Co-Treatment Reason: Cottx with OT for pt's safety with mobility, decreased activity tolerance and exepedite DC Prior to Session Communication: Bedside nurse Patient Position Received: Bed, 3 rail up, Alarm on Preferred Learning Style: verbal, visual General Comment: Pt supine in bed upon arrival, pleasant and willing to partiicpate. Improved mobility, declined sitting in chair post session.( Earlier attempt at 11:16 AM , pt declined PT) Subjective Precautions: Precautions Medical Precautions: Fall precautions, Oxygen therapy device and L/min (3 L O2) Date/Time Vitals Session Patient Position Pulse Resp SpO2 BP MAP (mmHg) 04/02/25 1334 During PT -- -- -- 95 % -- -- Objective Pain: Pain Assessment Pain Assessment: 0-10 0-10 (Numeric) Pain Score: 8 Pain Type: Acute pain Pain Location: Back Pain Interventions: Repositioned Cognition: Cognition Overall Cognitive Status: Within Functional Limits Arousal/Alertness: Appropriate responses to stimuli Orientation Level: Oriented X4 Following Commands: Follows all commands and directions without difficulty Treatments: Therapeutic Activity Therapeutic Activity Performed: Yes Therapeutic Activity 1: Pt tolerated seated EOB ~10 mins with SBA, tolerated standing for 45 secs and 60 secs with Jabari and walker support. Bed Mobility Bed Mobility: Yes Bed Mobility 1 Bed Mobility 1: Supine to sitting, Sitting to supine Level of Assistance 1: Moderate assistance Bed Mobility Comments 1: HOB elevated, bedrail Bed Mobility 2 Bed Mobility 2: Scooting (to HOB) Level of Assistance 2: Dependent, +2 Ambulation/Gait Training Ambulation/Gait Training Performed: Yes Ambulation/Gait Training 1 Surface 1: Level tile Device 1: Rolling walker Assistance 1: Minimal verbal cues, Minimal tactile cues (MinAx2) Quality of Gait 1: Diminished heel strike, Forward flexed posture Comments/Distance (ft) 1: x3 sidesteps to R and x2 to left Transfers Transfer: Yes Transfer 1 Transfer From 1: Sit to, Stand to Transfer to 1: Stand, Sit Technique 1: Sit to stand, Stand to sit Transfer Device 1: Walker Transfer Level of Assistance 1: Moderate assistance, +2, Moderate verbal cues, Moderate tactile cues Trials/Comments 1: unable on the 1st 2 trials, x2 from elevated EOB, cues for safe hand placement and sequencing Outcome Measures: [facility] Basic Mobility Turning from your back to your side while in a flat bed without using bedrails: A little Moving from lying on your back to sitting on the side of a flat bed without using bedrails: A lot Moving to and from bed to chair (including a wheelchair): A lot Standing up from a chair using your arms (e.g. wheelchair or bedside chair): Total To walk in hospital room: A lot Climbing 3-5 steps with railing: Total Basic Mobility - Total Score: 11 Education Documentation Precautions, taught by Rachele Correa PT at 04/02/2025 2:59 PM. Learner: Patient Readiness: Acceptance Method: Explanation, Demonstration Response: Verbalizes Understanding, Needs Reinforcement Body Mechanics, taught by Rachele Correa PT at 04/02/2025 2:59 PM. Learner: Patient Readiness: Acceptance Method: Explanation, Demonstration Response: Verbalizes Understanding, Needs Reinforcement Mobility Training, taught by Rachele Correa PT at 04/02/2025 2:59 PM. Learner: Patient Readiness: Acceptance Method: Explanation, Demonstration Response: Verbalizes Understanding, Needs Reinforcement Education Comments No comments found. OP EDUCATION: Encounter Problems Encounter Problems (Active) Mobility LTG - Patient will ambulate household distance Start: 04/02/25 PT Problem Pt will perform all aspects of bed mobility at mod indep. (Progressing) Start: 03/30/25 Expected End: 04/13/25 Pt will perform all transfers at mod indep w/ LRAD. (Progressing) Start: 03/30/25 Expected End: 04/13/25 Pt will amb 150' w/ LRAD at mod indep & no LOB. (Progressing) Start: 03/30/25 Expected End: 04/13/25 Pt will negotiate 5 steps w/ L ascending rail at min Ax1 in order to simulate home entrance. (Not Progressing) Start: 03/30/25 Expected End: 04/13/25 Occupational Therapy Occupational Therapy Treatment Name: Melissa Dubose : 1960 Date: 04/02/25 Room: [address] [place] [address]- Time Calculation Start Time: 1335 Stop Time: 1401 Time Calculation (min): 26 min Assessment: Barriers to Discharge Home: Caregiver assistance, Physical needs Caregiver Assistance: Caregiver assistance needed per identified barriers - however, level of patient's required assistance exceeds assistance available at home Physical Needs: 24hr mobility assistance needed, Intermittent ADL assistance needed, In-home setup navigation limited by function/safety, Ambulating household distances limited by function/safety Evaluation/Treatment Tolerance: Patient tolerated treatment well Medical Staff Made Aware: Yes End of Session Communication: Bedside nurse End of Session Patient Position: Bed, 3 rail up, Alarm on Plan: Treatment Interventions: ADL retraining, Endurance training, UE strengthening/ROM, Functional transfer training, Patient/family training, Equipment evaluation/education, Compensatory technique education OT Frequency: 4 times per week (Based on current functional status and rehab potential, patient is anticipated to tolerate and benefit from 5 or more days per week of skilled rehabilitative therapy after discharge from this acute inpatient hospitalization.) OT Discharge Recommendations: Other (Comment) (Mod intensity vs high intensity. Pt would be great candidate for high intensity OT services post d/c with improvement of activity tolerance. Will continue to assess while admitted) Equipment Recommended upon Discharge: Bedside commode OT Recommended Transfer Status: Assist of 2 OT - OK to Discharge: Yes Subjective General: OT Last Visit OT Received On: 04/02/25 Co-Treatment: PT Co-Treatment Reason: Pt with low tolerance for 2 sessions - PT and OT attempted pt multiple times earlier in the day - co-treat to expedite d/c and increase benefit of provided services Prior to Session Communication: Bedside nurse Patient Position Received: Bed, 3 rail up, Alarm off, not on at start of session Family/Caregiver Present: No General Comment: Pt presents supine in bed upon arrival - reports I am not going to be able to do much, at start of session Precautions: Hearing/Visual Limitations: Readers Medical Precautions: Fall precautions, Oxygen therapy device and L/min (3L O2) Lines/Tubes/Drains: Urethral Catheter (Active) Number of days: 11 Cognition: Overall Cognitive Status: Within Functional Limits Arousal/Alertness: Appropriate responses to stimuli Orientation Level: Oriented X4 Following Commands: Follows all commands and directions without difficulty Insight: Mild Pain Assessment: Pain Assessment Pain Assessment: 0-10 0-10 (Numeric) Pain Score: 8 Pain Type: Acute pain Pain Location: Back Pain Interventions: Repositioned Response to Interventions: Content/relaxed Objective Activities of Daily Living: UE Dressing UE Dressing Level of Assistance: Minimum assistance UE Dressing Where Assessed: Edge of bed UE Dressing Comments: Min A for management of gown around backside and for adjustment of fasteners LE Dressing LE Dressing: Yes Sock Level of Assistance: Dependent LE Dressing Where Assessed: Bed level LE Dressing Comments: Total assist for donning B socks in bed, pt denies attempting 2/2 pain and fatigue Bed Mobility/Transfers: Bed Mobility Bed Mobility: Yes Bed Mobility 1 Bed Mobility 1: Supine to sitting, Sitting to supine Level of Assistance 1: Moderate assistance, Minimal verbal cues Bed Mobility Comments 1: Mod A with cues for techinque, use of bed rail with HOB elevated Transfers Transfer: Yes Transfer 1 Transfer From 1: Sit to, Stand to Transfer to 1: Stand, Sit Technique 1: Sit to stand, Stand to sit Transfer Device 1: Walker Transfer Level of Assistance 1: Moderate assistance, +2 Trials/Comments 1: Unable to stand upon first 2 trials, bed height increased, Mod A x2 for 2 trials Therapy/Activity: Therapeutic Activity Therapeutic Activity Performed: Yes Therapeutic Activity 1: Static sitting EOB for approx 10 minutes, cues for improved positioning and to engage in deep breathing to improve tolerance Therapeutic Activity 2: Sit to stand attempts x4. pt unable to stand during trial 1 and 2 despite education on positioning. Mod A x2 for trials 3 and 4 with bed height elevated. Cues for standing posture and postioning. Pt tolerats standing for approx 45 seconds and 60 seconds. Extended rest between trials Therapeutic Activity 3: Side stepping at EOB with FWW, pt takes 3-4 steps L and R x2 with FWW with Min A for standing balance and cues for positioning. She demos moderate fatigue upon completion however vitals remain appropriate. Outcome Measures: [facility] Daily Activity Putting on and taking off regular lower body clothing: A lot Bathing (including washing, rinsing, drying): A lot Putting on and taking off regular upper body clothing: A little Toileting, which includes using toilet, bedpan or urinal: A lot Taking care of personal grooming such as brushing teeth: A little Eating Meals: None Daily Activity - Total Score: 16 Education Documentation Body Mechanics, taught by Saad Antunez OT at 04/02/2025 2:50 PM. Learner: Patient Readiness: Acceptance Method: Explanation Response: Verbalizes Understanding, Needs Reinforcement Comment: ADLs and safety Precautions, taught by Saad Antunez OT at 04/02/2025 2:50 PM. Learner: Patient Readiness: Acceptance Method: Explanation Response: Verbalizes Understanding, Needs Reinforcement Comment: ADLs and safety ADL Training, taught by Saad Antunez OT at 04/02/2025 2:50 PM. Learner: Patient Readiness: Acceptance Method: Explanation Response: Verbalizes Understanding, Needs Reinforcement Comment: ADLs and safety Education Comments No comments found. Goals: Encounter Problems Encounter Problems (Active) ADLs Patient with complete upper body dressing with independent level of assistance donning and doffing all UE clothes with no adaptive equipment while supported sitting (Progressing) Start: 03/30/25 Expected End: 04/20/25 Patient with complete lower body dressing with moderate assist level of assistance donning and doffing all LE clothes with PRN adaptive equipment while supine in bed and supported sitting (Progressing) Start: 03/30/25 Expected End: 04/20/25 Patient will complete daily grooming tasks brushing teeth and washing face/hair with independent level of assistance and PRN adaptive equipment while edge of bed . (Progressing) Start: 03/30/25 Expected End: 04/20/25 Patient will complete toileting including hygiene clothing management/hygiene with moderate assist level of assistance and bedside commode. (Progressing) Start: 03/30/25 Expected End: 04/20/25 EXERCISE/STRENGTHENING Patient will be educated on BUE HEP for increased ADL performance. (Progressing) Start: 03/30/25 Expected End: 04/20/25 TRANSFERS Patient will complete functional transfers with least restrictive device with moderate assist level of assistance. (Progressing) Start: 03/30/25 Expected End: 04/20/25 04/02/25 at 2:51 PM Saad Antunez OT [phone] 03/31/25 1000 Discharge Planning Living Arrangements Children (Pt is [place]. Information is obtained from pt's father, Ben.) Support Systems Children;Parent Assistance Needed ADLs Type of Residence Private residence Number of Stairs to Enter Residence 2 Number of Stairs Within Residence 10 Do you have animals or pets at home? Yes Type of Animals or Pets a dog Home or Post Acute Services In home services;Post acute facilities (Rehab/SNF/etc) Type of Post Acute Facility Services [facility];Rehab Type of Home Care Services Home OT;Home PT;Home nursing visits Expected Discharge Disposition (TBD) Does the patient need discharge transport arranged? Yes [facility] [employer] coordination needed? Yes Has discharge transport been arranged? No Financial Resource Strain How hard is it for you to pay for the very basics like food, housing, medical care, and heating? Not very Housing Stability In the last 12 months, was there a time when you were not able to pay the mortgage or rent on time? N In the past 12 months, how many times have you moved where you were living? 0 At any time in the past 12 months, were you homeless or living in a chcf (including now)? N Transportation Needs In the past 12 months, has lack of transportation kept you from medical appointments or from getting medications? no In the past 12 months, has lack of transportation kept you from meetings, work, or from getting things needed for daily living? No Patient Choice Provider Choice list and CMS website (https://medicare.gov/care-compare #search) for post-acute Quality and Resource Measure Data were provided and reviewed with: Family;Patient Patient / Family choosing to utilize agency / facility established prior to hospitalization No Stroke Family Assessment Stroke Family Assessment Needed No Intensity of Service Intensity of Service 0-30 min Pt scheduled for a thoracentesis today. Care team hopes to wean O2 after. PT currently recs high and OT recs high vs mod. Per care team, urgent RT is planned for tomorrow. Care team aware that pt cannot be in active tx for AR. SW will meet with pt/family to discuss. SW will follow. [facility] 1115 SW met with pt and father bedside to discuss AR. SW described the difference between AR and SNF and pt is amenable to whatever will get her up and moving again. There is an AR at [facility] in [place]. SW asked the care team to order a PM&R. Further discharge planning pending updates from the care team. SW will follow. [facility] Mel[facility] 03/31/2025 1205 Per care team, pt is being evaluated for inpatient chemo by Thoracic Onc. [facility] is planning to see pt soon after discharge and may plan RT soon after that. [facility] requested that care team meet with pt to discuss before SW returns to room to discuss SNF rather than AR. SW will follow. Mariano Melvin [facility] 04/02/2025 1020 Per care team, no plans for chemo or RT. PM&R recs AR. Referral sent to [facility]. SW will follow. Mariano Melvin [facility] 04/02/2025 1500 Referral faxed to [facility] AR at [phone]. SW will follow. Mariano Melvin [facility] Images from the original note were not included. [facility] ONCOLOGY PROGRESS NOTE Summary Statement Ms. 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 She was transferred from outside hospital where CT chest was negative for PE, noted to have R hilar mass measuring 5x4.7cm invading into the adjacent mediastinum about the lateral aspect of the trachea narrowing the R mainstem bronchus with the proximal RUL bronchus completely occluded with mild GGOs in the medial RUL and partial atelectasis of the RLL as well. She was transferred to the MICU on 03/22 for further care but was intubated en route. Pt had increasing O2 requirements up to 100% FiO2 on the vent on 03/23 and CXR showed progressive worsening and collapse of the RUL on 03/23. EKGs from 03/24 in AM showed RBBB and c/f W[place]. Repeat EKG showed RBBB and no ST elevation or depression and trops were negative. Underwent bronchoscopy with stenting and biopsy 03/24; prelim path impression is NSCLC, final path pending. 03/25 pt was able to wean down to 40% FiO2. Pt given 60mg BID of lasix IV 03/25 d/t bilateral pleural effusions on CXR and effusion on the R side during POCUS with good urine output. Restarted Eliquis 03/25. Pt on Unasyn 03/22- for suspected underlying pna. Expect to stop after 7 total days ending 03/29. Tolerated vent weaning and was extubated 03/26 with stable respiratory status since. Continued diuresis with IV Lasix 60mg BID on 03/26 and 03/27. Overall improvement in CXR bilateral effusions so held diuresis on 03/28. Oncology consulted on 03/27 for c/f NSCLC, recommended to obtain CT chest and abd w IV contrast and MRI brain w/wo contrast. Rad onc consulted for consideration of thoracic radiation. Patient weaned to 5 L NC on 03/28 and transferred to [facility] oncology for management of new NSCLC and acute hypoxic respiratory failure. On hospital day 11. Subjective Pt awake and comfortable, no worsening SOB overnight, no chest discomfort. Informed patient of PET-CT results indicating stage IV metastatic disease. Objective Physical Exam Constitutional: Appearance: Normal appearance. HENT: Head: Normocephalic and atraumatic. Eyes: Extraocular Movements: Extraocular movements intact. Cardiovascular: Rate and Rhythm: Normal rate and regular rhythm. Heart sounds: Normal heart sounds. Pulmonary: Breath sounds: Wheezing and rhonchi present. Comments: Diffuse rhonchi Abdominal: Palpations: Abdomen is soft. Comments: LLQ tenderness on light and deep palpation Musculoskeletal: Cervical back: Neck supple. Right lower leg: Edema present. Left lower leg: Edema present. Neurological: Mental Status: She is alert. Cranial Nerves: Cranial nerves 2-12 are intact. Psychiatric: Attention and Perception: Attention and perception normal. Behavior: Behavior normal. Last Recorded Vitals Blood pressure 118/77, pulse 69, temperature 36.4 C (97.5 F), temperature source Temporal, resp. rate 16, height 1.778 m (5' 10 ), weight 117 kg (258 lb 1.6 oz), SpO2 94%. Intake/Output last 3 Shifts: I/O last 3 completed shifts: In: 340 (2.9 mL/kg) [P.O.:340] Out: 1675 (14.3 mL/kg) [Urine:1600 (0.4 mL/kg/hr); Emesis/NG output:75] Weight: 117.1 kg Relevant Results Scheduled medications Scheduled Medications[1] Continuous medications Continuous Medications[2] PRN medications PRN Medications[3] Results for orders placed or performed during the hospital encounter of 03/22/25 (from the past 24 hours) POCT GLUCOSE Result Value Ref Range POCT Glucose 171 (H) 74 - 99 mg/dL POCT GLUCOSE Result Value Ref Range POCT Glucose 211 (H) 74 - 99 mg/dL POCT GLUCOSE Result Value Ref Range POCT Glucose 208 (H) 74 - 99 mg/dL POCT GLUCOSE Result Value Ref Range POCT Glucose 188 (H) 74 - 99 mg/dL Renal Function Panel Result Value Ref Range Glucose 169 (H) 74 - 99 mg/dL Sodium 135 (L) 136 - 145 mmol/L Potassium 4.3 3.5 - 5.3 mmol/L Chloride 99 98 - 107 mmol/L Bicarbonate 27 21 - 32 mmol/L Anion Gap 13 10 - 20 mmol/L Urea Nitrogen 9 6 - 23 mg/dL Creatinine 0.55 0.50 - 1.05 mg/dL eGFR >90 >60 mL/min/1.73m*2 Calcium 9.5 8.6 - 10.6 mg/dL Phosphorus 2.7 2.5 - 4.9 mg/dL Albumin 3.1 (L) 3.4 - 5.0 g/dL POCT GLUCOSE Result Value Ref Range POCT Glucose 193 (H) 74 - 99 mg/dL NM PET CT whole body Result Date: 04/02/2025 Interpreted By: Cinthia Ugalde and Ohs Zachary STUDY: NM PET CT WHOLE BODY; 04/01/2025 9:08 am INDICATION: Signs/Symptoms:new lung mass NSCLC favoring adenocarcinoma, planning for radiation and chemo. 64-year-old female with biopsy of mediastinal mass with pathology favoring adenocarcinoma with radiation initiation 03/31/2025. COMPARISON: CT chest/abdomen/pelvis 03/28/2025. ACCESSION NUMBER(S): [id number] ORDERING CLINICIAN: SHANTANU GILLILAND TECHNIQUE: DIVISION OF NUCLEAR MEDICINE POSITRON EMISSION TOMOGRAPHY (PET-CT) The patient received an intravenous dose of 11 mCi of Fluorine-18 fluorodeoxyglucose (FDG). Positron emission tomographic (PET) images from mid thigh to skull base were then acquired after a one hour delay. Also acquired was a contemporaneous low dose non-contrast CT scan performed for attenuation correction of PET images and anatomic localization. The PET and CT images were digitally fused for display. All images were acquired on a combined PET-CT scanner unit. Some areas of FDG accumulation may be described in standardized uptake value (SUV) units. CODING: Initial Treatment Strategy (PI) CALIBRATION: Dose [id number]-Vimo Interval (mins): 63 min Mediastinal bloodpool SUV (normal 1.5-2.5): 3.1 Blood glucose: 171 mg/dL FINDINGS: HEAD AND NECK: No evidence of focal FDG avid lesion in the partially visualized brain parenchyma, noting that evaluation is limited because of the expected physiologic diffuse FDG uptake in the brain. Hypermetabolic soft tissue deposit within the subcutaneous tissues posterior to the left shoulder measures 1.5 x 1.2 cm (SUV 8.9). Bilateral supraclavicular nodes measure 1.6 x 1.2 cm in the left (SUV 6.7) and 1.7 x 1.6 cm on the right (SUV 9.3). Hypermetabolic right level 2A lymph node measures 1.1 x 0.5 cm (SUV 3.9). Right parotid hypermetabolic focus measures 0.5 x 0 5 cm (SUV 2.6). No paranasal sinus diease. Non hypermetabolic right thyroid nodule measures 2.2 x 1.9 cm. CHEST: Moderate right pneumothorax with small volume subcutaneous emphysema about the posterior lateral right chest wall. Small right pleural effusion. Trace left pleural effusion. Hypermetabolic left breast lesion measures 0.8 x 0.8 cm (SUV 5.3). Another FDG avid subcutaneous lesion in the midline of the chest with SUV max 2.2 No focal FDG avid lesion is seen in the lung parenchyma. Large right lower paratracheal/subcarinal centrally necrotic, peripherally hypermetabolic lymph node/mass extends to the level of the upper mediastinum and right hilum measuring 6.8 x 5.6 cm with likely involvement of the right upper lobe bronchus and postobstructive atelectasis (SUV 15). Multiple soft tissue deposits along the lateral right chest wall, the largest of which measures 1.3 x 1.0 cm (SUV 5.7). ABDOMEN AND PELVIS: Nonobstructive left renal calculus measures up to 1.4 cm. Multiple soft tissue deposits throughout the peritoneum. For example: Lesion along the anterior right hepatic lobe measuring 1.1 x 0.5 cm (SUV 6.6). Lesion in the left mid abdomen measures 1.1 x 1.0 cm SUV 10.5). Lesion in the right lower quadrant measures 1.2 x 0.8 cm (SUV 4.9). Small hypermetabolic aortocaval node measures 0.7 x 0.6 cm (SUV 3.5). Left adrenal lesion measures 2.3 x 1.8 cm without significant hypermetabolic activity. Multiple hypermetabolic soft tissue deposits within the subcutaneous tissues of the abdomen/pelvis. For example: Left parasagittal lesion at the level of L3-4 measuring 1.1 x 1.1 cm (SUV 7.3). Right lower quadrant lesion measures 0.8 x 0.7 cm (SUV 6.1). Physiologic radiotracer uptake is present in the liver and spleen with excretion into the bowel loops and the genitourinary tract. MUSCULOSKELETAL: Cervical anterior spinal fusion hardware. Lumbar posterior spinal fusion hardware. Status post median sternotomy. Small FDG avid focus within the marrow of the mid right humeral diaphysis measuring 0.9 x 0.6 cm (SUV 4.7). Hypermetabolic focus about the right obturator internus measures 1.5 x 0.9 cm (SUV 10.4). 1. Large, necrotic, peripherally FDG avid mediastinal mass which appears to involve a right upper lobe bronchus with postobstructive atelectasis, consistent with biopsy-proven malignancy. Multiple FDG avid, cervical, thoracic, and abdominopelvic lymph nodes as described above consistent with el metastasis. 2. FDG avid focus within the right mid humeral diaphysis concerning for osseous metastasis. 3. Multiple soft tissue deposits within the subcutaneous tissues of the chest/abdomen/pelvis, including the left breast and within the peritoneum consistent with metastatic deposits 4. FDG avid lesion in the left adrenal gland, concerning for adrenal metastasis. 5. Redemonstration of moderate right pneumothorax. 6. Small right and trace left pleural effusions. 7. A mild FDG avid focus in the right parotid gland, favored to represent a benign etiology such as Warthin's tumor or pleomorphic adenoma. 8. Non FDG avid hypoattenuating lesion in the right thyroid lobe, further evaluation with thyroid ultrasound if clinically warranted. I personally reviewed the images/study and I agree with the findings as stated by Dr. Rolo Pickering. MACRO: None. Signed by: Cinthia Ugalde 04/02/2025 6:00 AM Dictation workstation: [id number] US thoracentesis Result Date: 04/01/2025 Interpreted By: Chuck Cobos, STUDY: US THORACENTESIS; 54:25 pm INDICATION: Signs/Symptoms:Thoracentesis of known Right moderate pleural effusion likely malignant from suspected NSCLC; currently on NC (new). B/l pleural effusions on CXR. COMPARISON: None. ACCESSION NUMBER(S): [id number] ORDERING CLINICIAN: LISSETTE MAHARAJ TECHNIQUE: INTERVENTIONALIST(S): Chuck Cobos CONSENT: The patient/patient's POA/next of kin was informed of the nature of the proposed procedure. The purposes, alternatives, risks, and benefits were explained and discussed. All questions were answered and consent was obtained. SEDATION: None MEDICATION/CONTRAST: No additional TIME OUT: A time out was performed immediately prior to procedure start with the interventional team, correctly identifying the patient name, date of , MRN, procedure, anatomy (including marking of site and side), patient position, procedure consent form, relevant laboratory and imaging test results, antibiotic administration, safety precautions, and procedure-specific equipment needs. FINDINGS: The patient was placed in the sitting position. The pleural space was examined with mercer scale ultrasound, and the most accessible fluid identified and marked for thoracentesis. The skin was prepped and draped in usual manner. Local anesthesia with Lidocaine was administered and a right-sided thoracentesis was performed. A 5 Malaysian One-Step Valved thoracentesis needle/catheter was then placed where marked. Approximately 400 mL of naresh colored fluid was removed. The needle/catheter was then withdrawn. The patient tolerated the procedure well and there were no immediate complications. Specimen(s) sent to the laboratory and pathology for further evaluation, per the requesting team. Uneventful thoracentesis, as detailed above. Right Pleural space, 400 mL I personally performed and/or directly supervised this study and was present for the entire procedure. Performed and dictated at [facility]. Signed by: Chuck Cobos 04/01/2025 4:25 PM Dictation workstation: [id number] XR chest 1 view Result Date: 04/01/2025 Interpreted By: Julia Duncan, STUDY: XR CHEST 1 VIEW; 03/31/2025 6:14 pm INDICATION: Signs/Symptoms:Post thoracentesis eval PTX. COMPARISON: Radiograph dated 03/31/2025 ACCESSION NUMBER(S): [id number] ORDERING CLINICIAN: SHANTANU GILLILAND FINDINGS: Status post median sternotomy. The cardiac silhouette size is within normal limits. Calcification of the aortic knob. Right perihilar mass like density again seen better seen on CT from 03/28/2025. There is moderate large right pneumothorax, increased in size compared to prior study. Bibasilar atelectasis. No acute osseous change. 1. Moderate to large right pneumothorax, increased in size compared to prior study. 2. Redemonstration of right perihilar masslike density. Critical Finding: See findings. Notification was initiated on 04/01/2025 at 8:08 am by Julia Ng. (-OCF-) Instructions: See Findings. Signed by: Julia Ng 04/01/2025 8:08 AM Dictation workstation: [id number] XR chest 1 view Result Date: 03/31/2025 Interpreted By: Con Dougherty, STUDY: XR CHEST 1 VIEW; 03/31/2025 3:15 pm INDICATION: Signs/Symptoms:Post thora. COMPARISON: 03/30/2025. ACCESSION NUMBER(S): [id number] ORDERING CLINICIAN: SHANTANU GILLILAND Large right superior mediastinal mass lesion, more conspicuous since last exam. Cardiac silhouette is moderately enlarged. Aorta is tortuous. Pulmonary vessels are congested. Course interstitial opacities involving the perihilar regions, lung bases, atelectasis, versus infiltrates. Small bilateral pleural effusion. No pneumothorax seen. Nonobstructive bowel gas pattern in the visualized upper abdomen. MACRO: None Signed by: Con Dougherty 03/31/2025 3:33 PM Dictation workstation: [id number] Assessment/Plan Ms. 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 She originally presented to [facility] 03/21 for 1 week of progressive SOB and R sided chest pain for several months. Noted to have R hilar mass on CT chest measuring 5x4.7 cm and invading into the adjacent mediastinum with R mainstem bronchus narrowing and complete occlusion of the proximal RUL bronchus. Intubated en route to the MICU 03/22 due to increasing O2 requirements. Extubated 03/26 with stable respiratory status since. MICU course significant for bronchoscopy 03/24 with stent of proximal R mainstem bronchus and biopsy with path report of NSCLC favoring adenocarcinoma. Currently being managed by [facility] oncology for acute hypoxic resp failure and NSCLC favoring adenocarcinoma. Updates 04/02/25: Daily AM CXR to monitor PTX Repeat CXR today 04/02 showing stable size of PTX NGS ordered for outpatient treatment planning PET-CT 03/31 showing redemonstrated R hilar mass and possible metastases in lymph nodes, subcutaneous tissues, R humerus, and L adrenal gland Emailed Dr. Escobedo at [facility] regarding tx planning, scheduling follow up R moderate pneumothorax Currently on 3 L NC weaned from 5 L overnight. No worsening SOB per patient or increased WOB. Patient received thoracentesis by IR 03/31 for drainage of bilateral pleural effusions to improve oxygenation. Patient was weaned to from 2 L to 1 L NC overnight. C/f loss of air, CXR obtained 03/31 showing redemonstration of R hilar mass, enlarged cardiac silhouette, course interstitial opacities involving the perihilar regions, lung bases, atelectasis, and small bilateral pleural effusions. No pneumothorax seen. Repeat CXR 03/31 showing moderate to large right pneumothorax. Repeat CXR 04/02 showing stable size of PTX. Pulmonology consulted for possible intervention. PLAN: Daily AM CXR Apixaban held for possible chest thoracostomy, consider restarting tomorrow 04/03 if CXR stable Acute hypoxic respiratory failure C/f aspiration PNA New PTX. Pt states she is not SOB or on home O2 at baseline. Currently afebrile, VSS. Extubated to HFNC 03/26 and weaned to 5 L NC 03/28. Resp cx growing rare mixed gram positive and gram negative organisms. BCx NGTD. CT chest 03/21 with 5x4.7cm R hilar mass invading into the adjacent mediastinum causing compression of the R mainstem bronchus and proximal RUL bronchus. CXR 03/23 showing interval worsening and collapse of the RUL. CXR 03/29 showing R upper lung atelectasis and small bilateral pleural effusions. S/p bronchoscopy with stent and biopsy 03/24. Likely 2/2 to compression from extensive R hilar mass although pneumonia incl aspiration PNA is a possibility PLAN: Wean O2 as tolerated Albuterol PRN New right hilar mass s/p biopsy, NSCLC favoring adenocarcinoma R mainstem bronchus narrowing s/p stent Surgical path from R lung biopsy 03/24 showing NSCLC carcinoma, favor adenocarcinoma in 4R lymph node, tumor cells positive for TTF-1 (8G7G3) and CK7, negative for p40. Viable tumor nuclei: 20%. TPS 90%. CT chest 03/21 with 5x4.7cm R hilar mass invading into the adjacent mediastinum causing compression of the R mainstem bronchus and proximal RUL bronchus. CXR 03/23 showing interval worsening and collapse of the RUL. S/p bronchoscopy with stent and biopsy 03/24. CT C/A/P 03/28 showing re-demonstrated R hilar mass now with R bronchial stent stent as well as L adrenal 2 cm nodule and hypodense lesion in the L anterior perihepatic space. No mets on MRI brain 03/29. PET-CT inpatient 03/31 showing redemonstrated R hilar mass and possible metastases to cervical, thoracic, and abdominopelvic lymph nodes, subcutaneous tissues of the chest/abdomen/pelvis and within the peritoneum, the right humeral diaphysis, and left adrenal gland. Received 8Gy in 1 fraction to R hilar mass 04/01. PT/OT recommending acute rehab but patient will not be able to get chemo or radiation while there; emailed Dr. 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 Patient denies orthopnea, with 2+ pitting edema bilaterally; per daughter this is a significant improvement from past volume status. Echo 03/22 showing no regional left ventricular wall motion abnormalities, normal LV cavity size, no LVH, mildly increased septal wall thickness. PLAN: Monitor volume status Continue Entresto HTN PLAN: Continue amlodipine Continue metoprolol CAD s/p CABG PLAN: Continue ezetimibe Continue atorvastatin Afib PLAN: Continue metoprolol Continue Eliquis DM PLAN: Cont SSI #1, lispro, 0-5 Units, subcutaneous, q4h GERD PLAN: Cont pantoprazole Access R PIV Fluids Caution with HF Electrolytes Mg>2 K>4 Nutrition Dietary Orders (From admission, onward) Start Ordered 04/01/25 1110 Oral nutritional supplements Until discontinued Question Answer Comment Deliver with Lunch Select supplement: Ensure Clear 04/01/25 1113 04/01/25 1106 Adult diet Regular; Thin 0 Diet effective now Question Answer Comment Diet type Regular Fluid consistency Thin 0 04/01/25 1113 03/22/25 0626 May Participate in Room Service With Assistance ( ROOM SERVICE MAY PARTICIPATE WITH ASSISTANCE) Once Question: . Answer: Yes 03/22/25624 DVT PPx Eliquis held due to PTX possible intervention GI PPx Pantoprazole Bowel regimen Miralax Pain Antimicrobials This patient does not have an active medication from one of the medication groupers. Code status Full Code, confirmed on floor admission ACP docs, surrogate decision maker Surrogate decision maker: Ben Funez Mobile Relation: Father Primary Emergency Contact Primary Emergency Contact: Ben Funez Mobile Relation: Father Secondary Emergency Contact Preferred language [place] Supervisor [employer] needed? No DISPO Acute rehab Esme Moore MD Internal Medicine PGY-1 [1] albuterol, 2.5 mg, nebulization, TID [Held by provider] apixaban, 5 mg, oral, BID atorvastatin, 40 mg, oral, Daily ezetimibe, 10 mg, oral, Daily insulin lispro, 0-5 Units, subcutaneous, TID AC metoprolol tartrate, 25 mg, oral, BID pantoprazole, 40 mg, oral, Daily before breakfast sacubitriL-valsartan, 1 tablet, oral, BID sodium chloride, 3 mL, nebulization, TID spironolactone, 12.5 mg, oral, Daily tiZANidine, 4 mg, oral, Nightly [2] [3] PRN medications: acetaminophen, benzocaine-menthol, dextrose, dextrose, eucerin, glucagon, glucagon, ipratropium-albuteroL, ondansetron OR ondansetron, oxyCODONE, oxygen, phenyleph-min oil-petrolatum, polyethylene glycol, prochlorperazine OR prochlorperazine Cosigned by Lissette Maharaj MD at 04/04/2025 7:04 AM EDT Associated attestation - Lissette Maharaj MD - 04/04/2025 7:04 AM EDT I saw and evaluated the patient. I personally obtained the back and critical portions of the history and physical exam or was physically present for back and critical portions performed by the resident/fellow. I reviewed the resident/fellow's documentation and discussed the patient with the resident/fellow. I agree with the resident/fellow's medical decision making as documented in the note. Lissette Maharaj MD [facility] INPATIENT FOLLOW-UP SERVICE DATE: 04/01/25 Updates and Recommendations (04/01/25): Pt reports x2 bouts of emesis during XRT this afternoon, but otherwise endorses that she tolerated the treatment well. She states that prior to XRT she was not experiencing n/v, and has not experienced any additional n/v since. Pt's pain and symptoms otherwise well controlled with current regimen, no recommended changes. ASSESSMENT/PLAN: Melissa Dubose is a 64 y.o. female diagnosed with large hilar mass with obstruction of the BECCA bronchus s/p biopsy and bronchial stent--preliminary pathology showing NSCLC. PMHx significant for CAD (s/p CABG 2015), HTN, A-fib, DM2, and HFrEF 2/2 ischemic cardiomyopathy. She originally presented to [facility] on 03/21/25 for SOB and hypoxia. She was intubated and transferred to [facility] MICU on 03/22/2025 for further evaluation and management of AHRF and new hilar mass. She was extubated 03/26/25 and transferred from MICU on 03/28/25. S/p R sided thoracentesis 03/31/25 with 400ml naresh fluid removed. Now having underwent urgent inpatient XRT (8Gy in 1 fraction) to R hilar mass on 04/01/25. [facility] is following for pain management. Neoplasm Related Pain Acute R sided chest pain 2/2 known malignancy. Chronic mid-low back pain 2/2 x4 past back surgeries per pt. Intermittent frontal headache pain related to critical illness vs caffeine withdrawal vs previous NPO status. Now denies. MRI brain without evidence of intracranial abnormality or brain metastasis. Pain type: Somatic, visceral Pain control: Well controlled Home regimen: tizanidine 4mg once daily HS Intolerances/previously tried: None Risk factors: None Renal and hepatic function WNL. Continue acetaminophen 975mg PO q8h PRN for mild pain Continue oxycodone IR 5mg PO q6h PRN for moderate to severe pain [continuing for pt's cancer related R side chest pain] Continue scheduled tizanidine 4mg PO once daily HS Nausea Intermittent nausea without vomiting related to malignancy, previous NPO status. Home regimen: None EKG reviewed from 03/24/25, QTc 449 PPI per primary Continue prochlorperazine 10mg PO/IV q6h PRN for n/v, first line Continue ondansetron 4mg PO/IV q6h PRN for n/v, second line Constipation At risk for constipation related to medication side effects (including opioids and ondansetron), decreased PO intake, and prolonged immobility iso hospitalization, currently not constipated. Usual bowel pattern: Every day Home regimen: None LBM: 03/31/25, loose Continue Miralax 17g PO once daily PRN for constipation Goal to have BM without straining q48-72h, adjust regimen as needed Encourage mobility as tolerated, PT/OT following Disposition: Please start the process of having prior authorization with meds to beds deliver medications to patient prior to discharge via [facility] pharmacy. Prescriptions will need to be sent 48-72 hours prior to discharge so that a prior authorization can be completed. Discharge date pending resolution of acute hospital issues. Pt does not currently qualify for an appointment with outpatient Support[facility] On[facility]. SIGNATURE: BERNADETTE Claudio PAGER/CONTACT: Contact information: [facility] Saturday-Saturday 8 AM-5 PM [employer] Private Secure chat or pager [phone]. After hours and weekends: pager [phone] SUBJECTIVE: Pain Assessment: Location: R chest, mid-low back Duration: Intermittent Characteristics: Rating: R chest/mid-low back: Mild Descriptors: Aching, sore, tight Aggravating: Movement, deep breathing Relieving: None, states recent pain medications only helped slightly Interference with Function: A little Opioid Requirements Past 24h opioid requirements: (03/31-04/01, [id number]) oxycodone IR 5mg x 3 = 15mg = 18.75 OME Total 24h OME use: 18.75 OME Symptom Assessment: Nausea: none--resolved since XRT Vomiting: none--resolved since XRT Difficulty Sleeping: none Constipation: none Diarrhea: a little Information obtained from: chart review, interview of patient, and discussion with primary team __ OBJECTIVE: Lab Results Component Value Date WBC 9.3 04/01/2025 HGB 12.8 04/01/2025 HCT 41.1 04/01/2025 MCV 99 04/01/2025 PLT 179 04/01/2025 Lab Results Component Value Date GLUCOSE 156 (H) 04/01/2025 CALCIUM 9.0 04/01/2025 NA 137 04/01/2025 K 4.4 04/01/2025 CO2 28 04/01/2025 CL 101 04/01/2025 BUN 9 04/01/2025 CREATININE 0.49 (L) 04/01/2025 Lab Results Component Value Date ALT 8 03/22/2025 AST 9 03/22/2025 ALKPHOS 70 03/22/2025 BILITOT 0.5 03/22/2025 Estimated Creatinine Clearance: 125 mL/min (A) (by C-G formula based on SCr of 0.49 mg/dL (L)). Scheduled medications Scheduled Medications[1] Continuous medications Continuous Medications[2] PRN medications acetaminophen, 975 mg, q8h PRN benzocaine-menthol, 1 lozenge, q4h PRN dextrose, 12.5 g, q15 min PRN dextrose, 25 g, q15 min PRN eucerin, , PRN glucagon, 1 mg, q15 min PRN glucagon, 1 mg, q15 min PRN ipratropium-albuteroL, 3 mL, q4h PRN ondansetron, 4 mg, q6h PRN Or ondansetron, 4 mg, q6h PRN oxyCODONE, 5 mg, q6h PRN oxygen, , Continuous - O2/gases phenyleph-min oil-petrolatum, , 4x daily PRN polyethylene glycol, 17 g, Daily PRN prochlorperazine, 10 mg, q6h PRN Or prochlorperazine, 10 mg, q6h PRN PHYSICAL EXAMINATION: Vital Signs: Vital signs reviewed Visit Vitals BP 127/78 (BP Location: Right arm, Patient Position: Lying) Pulse 79 Temp 36.7 C (98.1 F) (Temporal) Resp 16 0-10 (Numeric) Pain Score: 0 - No pain Physical Exam Vitals reviewed. Constitutional: Comments: Drowsy, awake, ill appearing woman laying in bed. No signs of acute distress. Pleasant, cooperative, and participating in interview. HENT: Head: Comments: Normocephalic, atraumatic. Eyes: Comments: Sclera clear, EOM intact. Pulmonary: Comments: Symmetrical chest rise. Regular rate and depth of respirations. 5L NC. Abdominal: Comments: Abdomen obese, non distended, non tender. Musculoskeletal: Comments: Generalized muscle weakness and atrophy. ROMERO x4. No visible extremity edema. Skin: Comments: No lesions, rash, or abrasions present on visible skin. Skin color appropriate for ethnicity. Neurological: Comments: A&Ox4, follows commands, no apparent sensory deficits. Psychiatric: Comments: Mood and behavior appropriate. PALLIATIVE CARE ENCOUNTER: [facility] Palliative Oncology encounter: Spoke with patient at bedside. Emotional support provided. Coordination of care: medication and symptom re-evaluation Medical Decision Making/Goals of Care/Advance Care Planning: (Per Estefani Pierce CNP's, note on 03/28/25) Patient's current clinical condition, including diagnosis, prognosis, and management plan, and goals of care were discussed. Life limiting disease: lung mass, AHRF Family: Supportive father, children, sisters Performance status: Major limitations due to disease process Joys/meaning/strength: Family and [place] Understanding of health: Demonstrates some understanding of disease process, did not readily share what has been discussed Code status discussion: Discussed previously and Full code Advance Directives Existence of Advance Directives: None Decision maker: Estefani Pierce CNP, having previously discussed [place] hierarchy of legal next of kin and explained that typically adult children are surrogate decision makers. At that time pt stating that she would like her father, Ben, to be her surrogate decision maker while she thinks about completing [facility] paperwork. Signature and billing: Medical complexity was high level due to due to complexity of problems, extensive data review, and high risk of management/treatment. I spent 50 minutes in the care of this patient which included chart review, interviewing patient/family, discussion with primary team, coordination of care, and documentation. Data: Diagnostic tests and information reviewed for today's visit: Conversation with primary team, Most recent labs and imaging results, Most recent EKG, Medications Some elements copied from my note on 03/30/25, the elements have been updated and all reflect current decision making from today, 04/01/25. Plan of Care discussed with: Primary team, pt Thank you for asking Supportive and Palliative Oncology to assist with care of this patient. Recommendations will be communicated back to the consulting service by way of shared electronic medical record/secure chat/email or [id number]. We will continue to follow. Please contact us for additional questions or concerns. SIGNATURE: BERNADETTE Claudio PAGER/CONTACT: Contact information: [facility] Saturday-Saturday 8 AM-5 PM, [employer] Secure chat or pager [phone]. After hours and weekends: pager [phone] [1] albuterol, 2.5 mg, nebulization, TID [Held by provider] apixaban, 5 mg, oral, BID atorvastatin, 40 mg, oral, Daily ezetimibe, 10 mg, oral, Daily insulin lispro, 0-5 Units, subcutaneous, TID AC metoprolol tartrate, 25 mg, oral, BID pantoprazole, 40 mg, oral, Daily before breakfast sacubitriL-valsartan, 1 tablet, oral, BID sodium chloride, 3 mL, nebulization, TID spironolactone, 12.5 mg, oral, Daily tiZANidine, 4 mg, oral, Nightly [2] [facility] ONCOLOGY PROGRESS NOTE Summary Statement Ms. Melissa Dubose is a 64 yo female with PMHx of of CAD s/p CABG in 2015, COPD, HTN, afib, T2DM, ICM HFimpEF (11/2024 TTE EF 50-55%) admitted for acute hypoxic respiratory failure requiring mechanical ventilation. She was transferred from outside hospital where CT chest was negative for PE, noted to have R hilar mass measuring 5x4.7cm invading into the adjacent mediastinum about the lateral aspect of the trachea narrowing the R mainstem bronchus with the proximal RUL bronchus completely occluded with mild GGOs in the medial RUL and partial atelectasis of the RLL as well. She was transferred to the MICU on 03/22 for further care but was intubated en route. Pt had increasing O2 requirements up to 100% FiO2 on the vent on 03/23 and CXR showed progressive worsening and collapse of the RUL on 03/23. EKGs from 03/24 in AM showed RBBB and c/f [place]. Repeat EKG showed RBBB and no ST elevation or depression and trops were negative. Underwent bronchoscopy with stenting and biopsy 03/24; prelim path impression is NSCLC, final path pending. 03/25 pt was able to wean down to 40% FiO2. Pt given 60mg BID of lasix IV 03/25 d/t bilateral pleural effusions on CXR and effusion on the R side during POCUS with good urine output. Restarted Eliquis 03/25. Pt on Unasyn 03/22- for suspected underlying pna. Expect to stop after 7 total days ending 03/29. Tolerated vent weaning and was extubated 03/26 with stable respiratory status since. Continued diuresis with IV Lasix 60mg BID on 03/26 and 03/27. Overall improvement in CXR bilateral effusions so held diuresis on 03/28. Oncology consulted on 03/27 for c/f NSCLC, recommended to obtain CT chest and abd w IV contrast and MRI brain w/wo contrast. Rad onc consulted for consideration of thoracic radiation. Patient weaned to 5 L NC on 03/28 and transferred to [facility] oncology for management of new NSCLC and acute hypoxic respiratory failure. On hospital day 10. Subjective Pt awake and comfortable, no worsening SOB overnight, no chest discomfort. Objective Physical Exam Constitutional: Appearance: Normal appearance. HENT: Head: Normocephalic and atraumatic. Eyes: Extraocular Movements: Extraocular movements intact. Cardiovascular: Rate and Rhythm: Normal rate and regular rhythm. Heart sounds: Normal heart sounds. Pulmonary: Breath sounds: Wheezing and rhonchi present. Comments: Diffuse rhonchi Abdominal: Palpations: Abdomen is soft. Comments: LLQ tenderness on light and deep palpation Musculoskeletal: Cervical back: Neck supple. Right lower leg: No edema. Left lower leg: No edema. Neurological: Mental Status: She is alert. Cranial Nerves: Cranial nerves 2-12 are intact. Motor: Weakness present. Psychiatric: Attention and Perception: Attention and perception normal. Behavior: Behavior normal. Last Recorded Vitals Blood pressure 139/86, pulse 80, temperature 36.5 C (97.7 F), temperature source Temporal, resp. rate 16, height 1.778 m (5' 10 ), weight 117 kg (258 lb 1.6 oz), SpO2 96%. Intake/Output last 3 Shifts: I/O last 3 completed shifts: In: 1180 (10.1 mL/kg) [P.O.:1180] Out: 1925 (16.4 mL/kg) [Urine:1850 (0.4 mL/kg/hr); Emesis/NG output:75] Weight: 117.1 kg Relevant Results Scheduled medications Scheduled Medications[1] Continuous medications Continuous Medications[2] PRN medications PRN Medications[3] Results for orders placed or performed during the hospital encounter of 03/22/25 (from the past 24 hours) POCT GLUCOSE Result Value Ref Range POCT Glucose 209 (H) 74 - 99 mg/dL POCT GLUCOSE Result Value Ref Range POCT Glucose 210 (H) 74 - 99 mg/dL Magnesium Result Value Ref Range Magnesium 1.98 1.60 - 2.40 mg/dL Renal function panel Result Value Ref Range Glucose 156 (H) 74 - 99 mg/dL Sodium 137 136 - 145 mmol/L Potassium 4.4 3.5 - 5.3 mmol/L Chloride 101 98 - 107 mmol/L Bicarbonate 28 21 - 32 mmol/L Anion Gap 12 10 - 20 mmol/L Urea Nitrogen 9 6 - 23 mg/dL Creatinine 0.49 (L) 0.50 - 1.05 mg/dL eGFR >90 >60 mL/min/1.73m*2 Calcium 9.0 8.6 - 10.6 mg/dL Phosphorus 2.9 2.5 - 4.9 mg/dL Albumin 3.0 (L) 3.4 - 5.0 g/dL CBC and Auto Differential Result Value Ref Range WBC 9.3 4.4 - 11.3 x10*3/uL nRBC 0.0 0.0 - 0.0 /100 WBCs RBC 4.14 4.00 - 5.20 x10*6/uL Hemoglobin 12.8 12.0 - 16.0 g/dL Hematocrit 41.1 36.0 - 46.0 % MCV 99 80 - 100 fL MCH 30.9 26.0 - 34.0 pg MCHC 31.1 (L) 32.0 - 36.0 g/dL RDW 12.8 11.5 - 14.5 % Platelets 179 150 - 450 x10*3/uL Neutrophils % 76.2 40.0 - 80.0 % Immature Granulocytes %, Automated 0.8 0.0 - 0.9 % Lymphocytes % 13.1 13.0 - 44.0 % Monocytes % 7.1 2.0 - 10.0 % Eosinophils % 2.5 0.0 - 6.0 % Basophils % 0.3 0.0 - 2.0 % Neutrophils Absolute 7.10 1.20 - 7.70 x10*3/uL Immature Granulocytes Absolute, Automated 0.07 0.00 - 0.70 x10*3/uL Lymphocytes Absolute 1.22 1.20 - 4.80 x10*3/uL Monocytes Absolute 0.66 0.10 - 1.00 x10*3/uL Eosinophils Absolute 0.23 0.00 - 0.70 x10*3/uL Basophils Absolute 0.03 0.00 - 0.10 x10*3/uL POCT GLUCOSE Result Value Ref Range POCT Glucose 174 (H) 74 - 99 mg/dL POCT GLUCOSE Result Value Ref Range POCT Glucose 171 (H) 74 - 99 mg/dL POCT GLUCOSE Result Value Ref Range POCT Glucose 211 (H) 74 - 99 mg/dL POCT GLUCOSE Result Value Ref Range POCT Glucose 208 (H) 74 - 99 mg/dL POCT GLUCOSE Result Value Ref Range POCT Glucose 188 (H) 74 - 99 mg/dL US thoracentesis Result Date: 04/01/2025 Interpreted By: Chuck Cobos, STUDY: US THORACENTESIS; 54:25 pm INDICATION: Signs/Symptoms:Thoracentesis of known Right moderate pleural effusion likely malignant from suspected NSCLC; currently on NC (new). B/l pleural effusions on CXR. COMPARISON: None. ACCESSION NUMBER(S): [id number] ORDERING CLINICIAN: LISSETTE MAHARAJ TECHNIQUE: INTERVENTIONALIST(S): Chuck Cobos CONSENT: The patient/patient's POA/next of kin was informed of the nature of the proposed procedure. The purposes, alternatives, risks, and benefits were explained and discussed. All questions were answered and consent was obtained. SEDATION: None MEDICATION/CONTRAST: No additional TIME OUT: A time out was performed immediately prior to procedure start with the interventional team, correctly identifying the patient name, date of , MRN, procedure, anatomy (including marking of site and side), patient position, procedure consent form, relevant laboratory and imaging test results, antibiotic administration, safety precautions, and procedure-specific equipment needs. FINDINGS: The patient was placed in the sitting position. The pleural space was examined with mercer scale ultrasound, and the most accessible fluid identified and marked for thoracentesis. The skin was prepped and draped in usual manner. Local anesthesia with Lidocaine was administered and a right-sided thoracentesis was performed. A 5 Malaysian One-Step Valved thoracentesis needle/catheter was then placed where marked. Approximately 400 mL of naresh colored fluid was removed. The needle/catheter was then withdrawn. The patient tolerated the procedure well and there were no immediate complications. Specimen(s) sent to the laboratory and pathology for further evaluation, per the requesting team. Uneventful thoracentesis, as detailed above. Right Pleural space, 400 mL I personally performed and/or directly supervised this study and was present for the entire procedure. Performed and dictated at [facility]. Signed by: Chuck Cobos 04/01/2025 4:25 PM Dictation workstation: [id number] NM PET CT whole body Result Date: 04/01/2025 Interpreted By: Rolo Pickering, STUDY: NM PET CT WHOLE BODY; 04/01/2025 9:08 am INDICATION: Signs/Symptoms:new lung mass NSCLC favoring adenocarcinoma, planning for radiation and chemo. 64-year-old female with biopsy of mediastinal mass with pathology favoring adenocarcinoma with radiation initiation 03/31/2025. COMPARISON: CT chest/abdomen/pelvis 03/28/2025. ACCESSION NUMBER(S): [id number] ORDERING CLINICIAN: SHANTANU GILLILAND TECHNIQUE: DIVISION OF NUCLEAR MEDICINE POSITRON EMISSION TOMOGRAPHY (PET-CT) The patient received an intravenous dose of 11 mCi of Fluorine-18 fluorodeoxyglucose (FDG). Positron emission tomographic (PET) images from mid thigh to skull base were then acquired after a one hour delay. Also acquired was a contemporaneous low dose non-contrast CT scan performed for attenuation correction of PET images and anatomic localization. The PET and CT images were digitally fused for display. All images were acquired on a combined PET-CT scanner unit. Some areas of FDG accumulation may be described in standardized uptake value (SUV) units. CODING: Initial Treatment Strategy (PI) CALIBRATION: Dose [id number] Interval (mins): 63 min Mediastinal bloodpool SUV (normal 1.5-2.5): 3.1 Blood glucose: 171 mg/dL FINDINGS: HEAD AND NECK: No evidence of focal FDG avid lesion in the partially visualized brain parenchyma, noting that evaluation is limited because of the expected physiologic diffuse FDG uptake in the brain. Hypermetabolic soft tissue deposit within the subcutaneous tissues posterior to the left shoulder measures 1.5 x 1.2 cm (SUV 8.9). Bilateral medial supraclavicular pelvic nodes measure 1.6 x 1.2 cm in the left (SUV 6.7) and 1.7 x 1.6 cm on the right (SUV 9.3). Hypermetabolic right level 2A lymph node measures 1.1 x 0.5 cm (SUV 3.9). Right parotid hypermetabolic focus measures 0.5 x 0 5 cm (SUV 2.6). No paranasal sinus diease. Non hypermetabolic right thyroid nodule measures 2.2 x 1.9 cm. CHEST: Moderate right pneumothorax with small volume subcutaneous emphysema about the posterior lateral right chest wall. Small right pleural effusion. Trace left pleural effusion. Hypermetabolic left breast lesion measures 0.8 x 0.8 cm (SUV 5.3). No focal FDG avid lesion is seen in the lung parenchyma. Large right lower paratracheal/subcarinal centrally necrotic, peripherally hypermetabolic lymph node/mass extends to the level of the upper sternum into the right hilum measuring 6.8 x 5.6 cm with likely involvement of the right upper lobe bronchus and postobstructive atelectasis (SUV 15). Multiple soft tissue deposits along the lateral right chest wall, the largest of which measures 1.3 x 1.0 cm (SUV 5.7). ABDOMEN AND PELVIS: Nonobstructive left renal calculus measures up to 1.4 cm. Multiple soft tissue deposits throughout the peritoneum. For example: Lesion along the anterior right hepatic lobe measuring 1.1 x 0.5 cm (SUV 6.6). Lesion in the left mid abdomen measures 1.1 x 1.0 cm SUV 10.5). Lesion in the right lower quadrant measures 1.2 x 0.8 cm (SUV 4.9). Small hypermetabolic aortocaval node measures 0.7 x 0.6 cm (SUV 3.5). Left adrenal lesion measures 2.3 x 1.8 cm without significant hypermetabolic activity. Multiple hypermetabolic soft tissue deposits within the subcutaneous tissues of the abdomen/pelvis. For example: Left parasagittal lesion at the level of L3-4 measuring 1.1 x 1.1 cm (SUV 7.3). Right lower quadrant lesion measures 0.8 x 0.7 cm (SUV 6.1). Physiologic radiotracer uptake is present in the liver and spleen with excretion into the bowel loops and the genitourinary tract. MUSCULOSKELETAL: Cervical anterior spinal fusion hardware. Lumbar posterior spinal fusion hardware. Status post median sternotomy. Small FDG avid focus within the marrow of the mid right humeral diaphysis measuring 0.9 x 0.6 cm (SUV 4.7). Hypermetabolic focus about the right obturator internus measures 1.5 x 0.9 cm (SUV 10.4). 1. Large, necrotic, peripherally hypermetabolic mediastinal mass which appears to involve a right upper lobe bronchus with postobstructive atelectasis, consistent with biopsy-proven malignancy. Multiple hypermetabolic, cervical, thoracic, and abdominopelvic lymph nodes as described above consistent with el metastasis. 2. Hypermetabolic focus within the right mid humeral diaphysis concerning for osseous metastasis. 3. Multiple soft tissue deposits within the subcutaneous tissues of the chest/abdomen/pelvis and within the peritoneum consistent with metastatic deposits. 4. Redemonstration of moderate right pneumothorax. 5. Small right and trace left pleural effusions. I personally reviewed the images/study and I agree with the findings as stated by Dr. Rolo Pickering. MACRO: None. Dictation workstation: [id number] XR chest 1 view Result Date: 04/01/2025 Interpreted By: Julia Duncan, STUDY: XR CHEST 1 VIEW; 03/31/2025 6:14 pm INDICATION: Signs/Symptoms:Post thoracentesis eval PTX. COMPARISON: Radiograph dated 03/31/2025 ACCESSION NUMBER(S): [id number] ORDERING CLINICIAN: SHANTANU GILLILAND FINDINGS: Status post median sternotomy. The cardiac silhouette size is within normal limits. Calcification of the aortic knob. Right perihilar mass like density again seen better seen on CT from 03/28/2025. There is moderate large right pneumothorax, increased in size compared to prior study. Bibasilar atelectasis. No acute osseous change. 1. Moderate to large right pneumothorax, increased in size compared to prior study. 2. Redemonstration of right perihilar masslike density. Critical Finding: See findings. Notification was initiated on 04/01/2025 at 8:08 am by Julia Ng. (-OCF-) Instructions: See Findings. Signed by: Julia Ng 04/01/2025 8:08 AM Dictation workstation: [id number] XR chest 1 view Result Date: 03/31/2025 Interpreted By: Con Dougherty, STUDY: XR CHEST 1 VIEW; 03/31/2025 3:15 pm INDICATION: Signs/Symptoms:Post thora. COMPARISON: 03/30/2025. ACCESSION NUMBER(S): [id number] ORDERING CLINICIAN: SHANTANU GILLILAND Large right superior mediastinal mass lesion, more conspicuous since last exam. Cardiac silhouette is moderately enlarged. Aorta is tortuous. Pulmonary vessels are congested. Course interstitial opacities involving the perihilar regions, lung bases, atelectasis, versus infiltrates. Small bilateral pleural effusion. No pneumothorax seen. Nonobstructive bowel gas pattern in the visualized upper abdomen. MACRO: None Signed by: Con Dougherty 03/31/2025 3:33 PM Dictation workstation: [id number] Assessment/Plan Ms. 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 She originally presented to [facility] 03/21 for 1 week of progressive SOB and R sided chest pain for several months. Noted to have R hilar mass on CT chest measuring 5x4.7 cm and invading into the adjacent mediastinum with R mainstem bronchus narrowing and complete occlusion of the proximal RUL bronchus. Intubated en route to the MICU 03/22 due to increasing O2 requirements. Extubated 03/26 with stable respiratory status since. MICU course significant for bronchoscopy 03/24 with stent of proximal R mainstem bronchus and biopsy with path report of NSCLC favoring adenocarcinoma. Currently being managed by [facility] oncology for acute hypoxic resp failure and NSCLC favoring adenocarcinoma. Updates 04/01/25: Received 8Gy in 1 fraction to R hilar mass today 04/[address] Escobedo regarding whether to prioritize acute rehab or chemo R moderate pneumothorax Currently on 5 L but was satting well and no SOB at 1 L overnight. No worsening SOB per patient or increased WOB. Patient received thoracentesis by IR 03/31 for drainage of bilateral pleural effusions to improve oxygenation. Patient was weaned to from 2 L to 1 L NC overnight. C/f loss of air, CXR obtained 03/31 showing redemonstration of R hilar mass, enlarged cardiac silhouette, course interstitial opacities involving the perihilar regions, lung bases, atelectasis, and small bilateral pleural effusions. No pneumothorax seen. Repeat CXR 03/31 showing moderate to large right pneumothorax. Pulmonology consulted for possible intervention. Apixaban held for possible needle aspiration or chest tube Acute hypoxic respiratory failure C/f aspiration PNA New PTX. Currently on 5 L NC after radiation, was initially weaned to 1 L overnight. Pt states she is not SOB or on home O2 at baseline. Currently afebrile, VSS. Extubated to HFNC 03/26 and weaned to 5 L NC 03/28. Resp cx growing rare mixed gram positive and gram negative organisms. BCx NGTD. CT chest 03/21 with 5x4.7cm R hilar mass invading into the adjacent mediastinum causing compression of the R mainstem bronchus and proximal RUL bronchus. CXR 03/23 showing interval worsening and collapse of the RUL. CXR 03/29 showing R upper lung atelectasis and small bilateral pleural effusions. S/p bronchoscopy with stent and biopsy 03/24. Likely 2/2 to compression from extensive R hilar mass although pneumonia incl aspiration PNA is a possibility PLAN: Wean O2 as tolerated Albuterol PRN New right hilar mass s/p biopsy, NSCLC favoring adenocarcinoma R mainstem bronchus narrowing s/p stent Surgical path from R lung biopsy 03/24 showing NSCLC carcinoma, favor adenocarcinoma in 4R lymph node, tumor cells positive for TTF-1 (8G7G3) and CK7, negative for p40. Viable tumor nuclei: 20%. TPS 90%. CT chest 03/21 with 5x4.7cm R hilar mass invading into the adjacent mediastinum causing compression of the R mainstem bronchus and proximal RUL bronchus. CXR 03/23 showing interval worsening and collapse of the RUL. S/p bronchoscopy with stent and biopsy 03/24. CT C/A/P 03/28 showing re-demonstrated R hilar mass now with R bronchial stent stent as well as L adrenal 2 cm nodule and hypodense lesion in the L anterior perihepatic space. No mets on MRI brain 03/29. PT/OT recommending acute rehab but patient will not be able to get chemo or radiation while there; emailed Dr. Escobedo 04/01 regarding optimal tx timing PLAN: Follow up on outpatient thoracic onc follow up (pt prefers [facility]) Supportive onc recs 03/30: start acetaminophen 975mg PO q8h PRN for mild pain, start oxycodone IR 5mg PO q6h PRN for moderate to severe pain, start scheduled tizanidine 4mg PO once daily HS (before sleep per pt preference; dc PRN tizanidine) Change prochlorperazine 10mg PO/IV q6h PRN for n/v, first line, change ondansetron 4mg PO/IV q6h PRN for n/v, second line Discontinue scheduled Miralax, start Miralax 17g PO once daily PRN for constipation 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 Patient denies orthopnea, with 2+ pitting edema bilaterally; per daughter this is a significant improvement from past volume status. Echo 03/22 showing no regional left ventricular wall motion abnormalities, normal LV cavity size, no LVH, mildly increased septal wall thickness. PLAN: Monitor volume status Continue Entresto HTN PLAN: Continue amlodipine Continue metoprolol CAD s/p CABG PLAN: Continue ezetimibe Continue atorvastatin Afib PLAN: Continue metoprolol Continue Eliquis DM PLAN: Cont SSI #1, lispro, 0-5 Units, subcutaneous, q4h GERD PLAN: Cont pantoprazole Access R PIV Fluids Caution with HF Electrolytes Mg>2 K>4 Nutrition Dietary Orders (From admission, onward) Start Ordered 04/01/25 1110 Oral nutritional supplements Until discontinued Question Answer Comment Deliver with Lunch Select supplement: Ensure Clear 04/01/25 1113 04/01/25 1106 Adult diet Regular; Thin 0 Diet effective now Question Answer Comment Diet type Regular Fluid consistency Thin 0 04/01/25 1113 03/22/25 0626 May Participate in Room Service With Assistance ( ROOM SERVICE MAY PARTICIPATE WITH ASSISTANCE) Once Question: . Answer: Yes 03/22/25 0625 DVT PPx Eliquis held due to PTX possible intervention GI PPx Pantoprazole Bowel regimen Miralax Pain Antimicrobials This patient does not have an active medication from one of the medication groupers. Code status Full Code, confirmed on floor admission ACP docs, surrogate decision maker Surrogate decision maker: eBn Funez Mobile Relation: Father Primary Emergency Contact Primary Emergency Contact: Ben Funez Mobile Relation: Father Secondary Emergency Contact Preferred language [place] Supervisor [employer] needed? No DISPO Acute rehab Esme Moore MD Internal Medicine PGY-1 [1] albuterol, 2.5 mg, nebulization, TID [Held by provider] apixaban, 5 mg, oral, BID atorvastatin, 40 mg, oral, Daily ezetimibe, 10 mg, oral, Daily insulin lispro, 0-5 Units, subcutaneous, TID AC metoprolol tartrate, 25 mg, oral, BID pantoprazole, 40 mg, oral, Daily before breakfast sacubitriL-valsartan, 1 tablet, oral, BID sodium chloride, 3 mL, nebulization, TID spironolactone, 12.5 mg, oral, Daily tiZANidine, 4 mg, oral, Nightly [2] [3] PRN medications: acetaminophen, benzocaine-menthol, dextrose, dextrose, eucerin, glucagon, glucagon, ipratropium-albuteroL, ondansetron OR ondansetron, oxyCODONE, oxygen, phenyleph-min oil-petrolatum, polyethylene glycol, prochlorperazine OR prochlorperazine Cosigned by Lissette Maharaj MD at 04/04/2025 7:03 AM EDT Associated attestation - Lissette Maharaj MD - 04/04/2025 7:03 AM EDT I saw and evaluated the patient. I personally obtained the back and critical portions of the history and physical exam or was physically present for back and critical portions performed by the resident/fellow. I reviewed the resident/fellow's documentation and discussed the patient with the resident/fellow. I agree with the resident/fellow's medical decision making as documented in the note. Lissette Maharaj MD Physical Therapy Therapy Communication Note Patient Name: Melissa Dubose Department: [address] Room: [address] [place] [address] Today's Date: 04/01/2025 Discipline: Physical Therapy Missed Visit: PT Missed Visit: Yes Missed Visit Reason: Missed Visit Reason: Other (Comment) (Pt off the floor) Missed Time: 08:42 AM Nutrition Follow Up Assessment: Nutrition Assessment Patient is a 64 y.o. female admitted for acute hypoxic respiratory failure requiring mechanical ventilation. Patient weaned to 5 L NC on 03/28 and transferred to [facility] oncology for management of new NSCLC and acute hypoxic respiratory failure. PMH: CAD s/p CABG in 2015, HTN, afib, T2DM, ICM HFimpEF (11/2024 TTE EF 50-55%) Since last nutrition note 03/22: Underwent bronchoscopy with stenting and biopsy 03/24; new NSCLC Extubated 03/26 with stable respiratory status since CXR today showing R upper lung atelectasis and small bilateral pleural effusions Advanced to Regular diet 03/29 Goal feeds while on propofol of TwoCal HN @ 25mL/hr, pt received some enteral feeds, however, unclear if she reached goal rate d/t frequent NPO status. Last received enteral feeds 03/26 (?) Failed swallow eval with AIRFIELD MANAGER 03/27, reassessment 03/29 AIRFIELD MANAGER recs for Regular Solids & Thin Liquids Transfer to regular nursing floor 03/28 Nutrition History: Food and Nutrient History: Met with pt this afternoon, pt sitting up in bed at time of conversation, family member at bedside. Pt reports that her appetite is present, endorses nausea, but only one episode of vomiting, reports lots of diarrhea , denies abdominal pain. Denies chewing/swallowing difficulties aside from soreness in throat. Pt declines ONS at this time, stated those are disgusting. Per [employer], pt has ordered 3 meals/day since diet advance 03/29, 2 meals so far today. Anthropometrics: Height: 177.8 cm (5' 10 ) Weight: 117 kg (258 lb 1.6 oz) BMI (Calculated): 37.03 IBW/kg (Dietitian Calculated): 68.2 kg Percent of IBW: 152 % Weight History: Date/Time Weight 03/30/25 0500 117 kg 03/28/25 0600 107 kg 03/26/25 0600 111 kg (first measured weight this admission) 03/21/25 2215 104 kg Weight Change %: Weight History / % Weight Change: Current weight is up from admit, likely d/t fluid/scale discrepancies. Nutrition Focused Physical Exam Findings: Subcutaneous Fat Loss: Defer Subcutaneous Fat Loss Assessment: Defer all Defer All Reason: completed at prior nutrition assessment; well-nourished Muscle Wasting: Defer Muscle Wasting Assessment: Defer all Defer All Reason: completed at prior nutrition assessment; well-nourished Edema: Edema Location: generalized edema documented 03/30, WDL documented today 03/31 Physical Findings: Skin: Negative Digestive System Findings: Nausea, Diarrhea Nutrition Significant Labs: CBC Trend: Results from last 7 days Lab Units 03/31/25 0708 03/30/25 1823 03/30/25 0455 03/29/25 2247 WBC AUTO x10*3/uL 10.3 10.8 10.2 11.3 RBC AUTO x10*6/uL 4.30 4.30 4.08 4.17 HEMOGLOBIN g/dL 12.9 13.3 12.8 12.8 HEMATOCRIT % 42.3 41.9 40.0 40.5 MCV fL 98 97 98 97 PLATELETS AUTO x10*3/uL 185 222 201 194 , BMP Trend: Results from last 7 days Lab Units 03/31/25 0708 03/30/25 1823 03/30/25 0455 03/29/25 2247 GLUCOSE mg/dL 156* 133* 167* 212* CALCIUM mg/dL 9.1 9.6 9.0 9.0 SODIUM mmol/L 139 136 138 137 POTASSIUM mmol/L 3.8 3.6 3.1* 3.3* CO2 mmol/L 29 33* 32 33* CHLORIDE mmol/L 102 97* 98 97* BUN mg/dL 11 13 15 17 CREATININE mg/dL 0.41* 0.48* 0.42* 0.63 , A1C: Lab Results Component Value Date HGBA1C 6.6 (H) 03/22/2025 , BG POCT trend: Results from last 7 days Lab Units 03/31/25 1100 03/31/25 0911 03/31/25 0404 03/31/25 0010 03/30/25 1958 POCT GLUCOSE mg/dL 195* 148* 152* 188* 216* , Renal Lab Trend: Results from last 7 days Lab Units 03/31/25 0708 03/30/25 1823 03/30/25 0455 03/29/25 2247 POTASSIUM mmol/L 3.8 3.6 3.1* 3.3* PHOSPHORUS mg/dL 2.8 2.0* 3.0 2.2* SODIUM mmol/L 139 136 138 137 MAGNESIUM mg/dL 1.99 -- 2.06 -- EGFR mL/min/1.73m*2 >90 >90 >90 >90 BUN mg/dL 11 13 15 17 CREATININE mg/dL 0.41* 0.48* 0.42* 0.63 , Vit D: No results found for: VITD25 Nutrition Specific Medications: Scheduled medications [Held by provider] apixaban, 5 mg, oral, BID atorvastatin, 40 mg, oral, Daily ezetimibe, 10 mg, oral, Daily insulin lispro, 0-5 Units, subcutaneous, TID AC metoprolol tartrate, 25 mg, oral, BID pantoprazole, 40 mg, oral, Daily before breakfast potassium phosphate (monobasic), 500 mg, oral, 4x daily spironolactone, 12.5 mg, oral, Daily PRN medications: dextrose, dextrose, glucagon, glucagon, ondansetron OR ondansetron, oxyCODONE, polyethylene glycol, prochlorperazine OR prochlorperazine I/O: Last BM Date: 03/30/25; Stool Appearance: Loose (03/30/251999) Dietary Orders (From admission, onward) Start Ordered 03/29/25 142 Adult diet Regular; Thin 0 Diet effective now Question Answer Comment Diet type Regular Fluid consistency Thin 0 03/29/25 1429 03/22/25 06 May Participate in Room Service With Assistance ( ROOM SERVICE MAY PARTICIPATE WITH ASSISTANCE) Once Question: . Answer: Yes 03/22/25624 Estimated Needs: Total Energy Estimated Needs in 24 hours (kCal): 2280 kCal Method for Estimating Needs: MSJ (2724) x 1.3 using admit weight of 111kg Total Protein Estimated Needs in 24 Hours (g): (90-102) Method for Estimating 24 Hour Protein Needs: 1.3-1.5g/kg x IBW Method for Estimating 24 Hour Fluid Needs: 1mL/kcal or per team Nutrition Diagnosis Malnutrition Diagnosis Patient has Malnutrition Diagnosis: (unable to determine at this time) Nutrition Diagnosis Patient has Nutrition Diagnosis: Yes Diagnosis Status (1): New Nutrition Diagnosis 1: Increased nutrient needs Related to (1): increased metabolic demand As Evidenced by (1): new NSCLC Additional Assessment Information (1): Unable to fully assess malnutrition status as unclear whether weight loss is present at this time. Nutrition status pending pt's PO intake now that she is on Regular diet. Nutrition Interventions/Recommendations Nutrition prescription for oral nutrition Nutrition Recommendations: 1. Continue Regular Diet, only as tolerated ---Pt declines ONS at this time 2. Please obtain daily weights, standing preferred, if feasible Nutrition Interventions/Goals: Meals and Snacks: General healthful diet Goal: at least 75% of 3 meals daily Education Documentation Talked to pt about the role of ONS in adding calories and protein into diet while working to increase PO intake. Pt declined ONS. Nutrition Monitoring and Evaluation Intake / Amount of food: Consumes at least 75% or more of meals/snacks/supplements Body Weight: Body weight - Maintain stable weight Glucose/Endocrine Profile: Glucose within normal limits (80-180 mg/dL) Goal Status: New goal(s) identified Time Spent (min): 60 minutes Physical Therapy Therapy Communication Note Patient Name: Melissa Dubose Department: [facility] Room: [address] [place] [address] Today's Date: 03/31/2025 Discipline: Physical Therapy Missed Visit: PT Missed Visit: Yes Missed Visit Reason: Missed Visit Reason: Other (Comment) (Pt is scheduled for thoracentesis around 1 PM this date.) Missed Time: 12:45 PM 03/31/25 1000 Discharge Planning Living Arrangements Children (Pt is [place]. Information is obtained from pt's father, Ben.) Support Systems Children;Parent Assistance Needed ADLs Type of Residence Private residence Number of Stairs to Enter Residence 2 Number of Stairs Within Residence 10 Do you have animals or pets at home? Yes Type of Animals or Pets a dog Home or Post Acute Services In home services;Post acute facilities (Rehab/SNF/etc) Type of Post Acute Facility Services [facility];Rehab Type of Home Care Services Home OT;Home PT;Home nursing visits Expected Discharge Disposition (TBD) Does the patient need discharge transport arranged? Yes [employer] coordination needed? Yes Has discharge transport been arranged? No Financial Resource Strain How hard is it for you to pay for the very basics like food, housing, medical care, and heating? Not very Housing Stability In the last 12 months, was there a time when you were not able to pay the mortgage or rent on time? N In the past 12 months, how many times have you moved where you were living? 0 At any time in the past 12 months, were you homeless or living in a chcf (including now)? N Transportation Needs In the past 12 months, has lack of transportation kept you from medical appointments or from getting medications? no In the past 12 months, has lack of transportation kept you from meetings, work, or from getting things needed for daily living? No Patient Choice Provider Choice list and [facility] website (https://medicare.gov/care-compare #search) for post-acute Quality and Resource Measure Data were provided and reviewed with: Family;Patient Patient / Family choosing to utilize agency / facility established prior to hospitalization No Stroke Family Assessment Stroke Family Assessment Needed No Intensity of Service Intensity of Service 0-30 min Pt scheduled for a thoracentesis today. Care team hopes to wean O2 after. PT currently recs high and OT recs high vs mod. Per care team, urgent RT is planned for tomorrow. Care team aware that pt cannot be in active tx for AR. WES will meet with pt/family to discuss. WES will follow. Mariano Melvin [facility] 03/31/2025 1115 SW met with pt and father bedside to discuss AR. WES described the difference between AR and SNF and pt is amenable to whatever will get her up and moving again. There is an AR at [facility] in [place]. WES asked the care team to order a PM&R. Further discharge planning pending updates from the care team. WES will follow. Mariano Melvin [facility] 03/31/2025 1205 Per care team, pt is being evaluated for inpatient chemo by Thoracic Onc. [facility] is planning to see pt soon after discharge and may plan RT soon after that. WES requested that care team meet with pt to discuss before SW returns to room to discuss SNF rather than AR. SW will follow. Mariano Melvin [facility] MA[facility] [employer] [facility] ONCOLOGY PROGRESS NOTE Summary Statement Ms. Melissa Dubose is a 64 yo female with PMHx of of CAD s/p CABG in 2015, COPD, HTN, afib, T2DM, ICM HFimpEF (11/2024 TTE EF 50-55%) admitted for acute hypoxic respiratory failure requiring mechanical ventilation. She was transferred from outside hospital where CT chest was negative for PE, noted to have R hilar mass measuring 5x4.7cm invading into the adjacent mediastinum about the lateral aspect of the trachea narrowing the R mainstem bronchus with the proximal RUL bronchus completely occluded with mild GGOs in the medial RUL and partial atelectasis of the RLL as well. She was transferred to the MICU on 03/22 for further care but was intubated en route. Pt had increasing O2 requirements up to 100% FiO2 on the vent on 03/23 and CXR showed progressive worsening and collapse of the RUL on 03/23. EKGs from 03/24 in AM showed RBBB and c/f WV. Repeat EKG showed RBBB and no ST elevation or depression and trops were negative. Underwent bronchoscopy with stenting and biopsy 03/24; prelim path impression is NSCLC, final path pending. 03/25 pt was able to wean down to 40% FiO2. Pt given 60mg BID of lasix IV 03/25 d/t bilateral pleural effusions on CXR and effusion on the R side during POCUS with good urine output. Restarted Eliquis 03/25. Pt on Unasyn 03/22- for suspected underlying pna. Expect to stop after 7 total days ending 03/29. Tolerated vent weaning and was extubated 03/26 with stable respiratory status since. Continued diuresis with IV Lasix 60mg BID on 03/26 and 03/27. Overall improvement in CXR bilateral effusions so held diuresis on 03/28. Oncology consulted on 03/27 for c/f NSCLC, recommended to obtain CT chest and abd w IV contrast and MRI brain w/wo contrast. Rad onc consulted for consideration of thoracic radiation. Patient weaned to 5 L NC on 03/28 and transferred to [facility] oncology for management of new NSCLC and acute hypoxic respiratory failure. On hospital day 9. Subjective Patient is doing well, alert, expressing willingness to go to rehab. Reported having some diarrhea last night that improved with imodium. Objective Physical Exam Constitutional: Appearance: Normal appearance. HENT: Head: Normocephalic and atraumatic. Eyes: Extraocular Movements: Extraocular movements intact. Cardiovascular: Rate and Rhythm: Normal rate and regular rhythm. Heart sounds: Normal heart sounds. Pulmonary: Breath sounds: Wheezing and rhonchi present. Comments: Diffuse rhonchi Abdominal: Palpations: Abdomen is soft. Comments: LLQ tenderness on light and deep palpation Musculoskeletal: Cervical back: Neck supple. Right lower le+ Edema present. Left lower le+ Edema present. Neurological: Mental Status: She is alert. Cranial Nerves: Cranial nerves 2-12 are intact. Motor: Weakness present. Comments: 4/5 strength bilateral lower extremities Psychiatric: Attention and Perception: Attention and perception normal. Behavior: Behavior normal. Last Recorded Vitals Blood pressure 122/69, pulse 75, temperature 36.5 C (97.7 F), temperature source Temporal, resp. rate 18, height 1.778 m (5' 10 ), weight 117 kg (258 lb 1.6 oz), SpO2 93%. Intake/Output last 3 Shifts: I/O last 3 completed shifts: In: 260 (2.2 mL/kg) [P.O.:160; IV Piggyback:100] Out: 975 (8.3 mL/kg) [Urine:975 (0.2 mL/kg/hr)] Weight: 117.1 kg Relevant Results Scheduled medications Scheduled Medications[1] Continuous medications Continuous Medications[2] PRN medications PRN Medications[3] Results for orders placed or performed during the hospital encounter of 03/22/25 (from the past 24 hours) POCT GLUCOSE Result Value Ref Range POCT Glucose 266 (H) 74 - 99 mg/dL POCT GLUCOSE Result Value Ref Range POCT Glucose 252 (H) 74 - 99 mg/dL POCT GLUCOSE Result Value Ref Range POCT Glucose 208 (H) 74 - 99 mg/dL POCT GLUCOSE Result Value Ref Range POCT Glucose 191 (H) 74 - 99 mg/dL Renal Function Panel Result Value Ref Range Glucose 133 (H) 74 - 99 mg/dL Sodium 136 136 - 145 mmol/L Potassium 3.6 3.5 - 5.3 mmol/L Chloride 97 (L) 98 - 107 mmol/L Bicarbonate 33 (H) 21 - 32 mmol/L Anion Gap 10 10 - 20 mmol/L Urea Nitrogen 13 6 - 23 mg/dL Creatinine 0.48 (L) 0.50 - 1.05 mg/dL eGFR >90 >60 mL/min/1.73m*2 Calcium 9.6 8.6 - 10.6 mg/dL Phosphorus 2.0 (L) 2.5 - 4.9 mg/dL Albumin 3.1 (L) 3.4 - 5.0 g/dL CBC Result Value Ref Range WBC 10.8 4.4 - 11.3 x10*3/uL nRBC 0.0 0.0 - 0.0 /100 WBCs RBC 4.30 4.00 - 5.20 x10*6/uL Hemoglobin 13.3 12.0 - 16.0 g/dL Hematocrit 41.9 36.0 - 46.0 % MCV 97 80 - 100 fL MCH 30.9 26.0 - 34.0 pg MCHC 31.7 (L) 32.0 - 36.0 g/dL RDW 12.6 11.5 - 14.5 % Platelets 222 150 - 450 x10*3/uL POCT GLUCOSE Result Value Ref Range POCT Glucose 216 (H) 74 - 99 mg/dL POCT GLUCOSE Result Value Ref Range POCT Glucose 188 (H) 74 - 99 mg/dL POCT GLUCOSE Result Value Ref Range POCT Glucose 152 (H) 74 - 99 mg/dL Rad Onc CT Sim Images Result Date: 03/30/2025 These images are not reportable by radiology and will not be interpreted by Radiologists. XR chest 1 view Result Date: 03/30/2025 Interpreted By: Con Dougherty and Kimmy Garcia STUDY: XR CHEST 1 VIEW; 03/30/2025 8:22 am INDICATION: Signs/Symptoms:Eval R sided pleural effusion. COMPARISON: Chest radiograph 03/28/2025, CT chest 03/28/2025 ACCESSION NUMBER(S): [id number] ORDERING CLINICIAN: LISSETTE MAHARAJ FINDINGS: AP radiograph of the chest was provided. Medical devices: Patient is status post median sternotomy. CARDIOMEDIASTINAL SILHOUETTE: Cardiomediastinal silhouette is normal in size and configuration. Severe aortic knob calcifications. LUNGS: Similar appearance of bibasilar hazy opacities. Blunting of the bilateral costophrenic angles. Right upper lung atelectasis is again noted, consistent with patient's history of a right hilar mass better visualized on CT chest abdomen pelvis 03/28/2025. No pneumothorax. ABDOMEN: No remarkable upper abdominal findings. BONES: No acute osseous changes. 1. Right upper lung atelectasis is again noted, consistent with patient's history of a right hilar mass better visualized on CT chest abdomen pelvis 03/28/2025. 2. Similar appearance of bibasilar hazy opacities and blunting of the bilateral costophrenic angles, likely small bilateral pleural effusions. Infectious etiology can not be excluded. I personally reviewed the images/study and I agree with the findings as stated by resident physician Jose Oneal MD. This study was interpreted at [facility], [place], [place]. MACRO: None Signed by: Con Dougherty 03/30/2025 2:09 PM Dictation workstation: [id number] Electrocardiogram, 12-lead PRN ACS symptoms Result Date: 03/29/2025 Atrial fibrillation Right bundle branch block Abnormal ECG When compared with ECG of 24-MAR-2025 08:45, Atrial fibrillation has replaced Sinus rhythm Nonspecific T wave abnormality, improved in Inferior leads Nonspecific T wave abnormality has replaced inverted T waves in Anterior leads Confirmed by Roc Ling ([id number]) on 03/29/2025 2:14:27 PM MR brain w and wo IV contrast Result Date: 03/29/2025 Interpreted By: Lupe Green, STUDY: MR BRAIN W AND WO IV CONTRAST; 03/29/2025 9:55 am INDICATION: Signs/Symptoms:new cancer staging. New right hilar mass. COMPARISON: CT head 03/21/2025. ACCESSION NUMBER(S): [id number] ORDERING CLINICIAN: BETH HAYDEN TECHNIQUE: Multiplanar, multi-sequence MRI of the brain performed before and after the administration of intravenous contrast. INTRAVENOUS CONTRAST DOSE:20 ML Dotarem. FINDINGS: VENTRICLES and EXTRA-AXIAL SPACES: No hydrocephalus.No abnormal extra-axial fluid collection. Basal cisterns are patent.Pituitary gland and sella are unremarkable. BRAIN PARENCHYMA:Parenchyma is within normal limits for age.No acute territorial infarct or hemorrhage. No mass or mass effect.No areas of abnormal enhancement. PARANASAL SINUSES/MASTOIDS: Mild mucosal thickening in the left sphenoid and maxillary sinuses.Mild opacification of bilateral mastoid air cells. OSSEOUS STRUCTURES: No suspicious osseous lesions. OTHER: None. No acute intracranial abnormality. No evidence of intracranial metastases. I personally reviewed the images/study and I agree with the findings as stated. MACRO: None. Signed by: Lupe Green 03/29/2025 10:06 AM Dictation workstation: [id number] Assessment/Plan Ms. 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 She originally presented to [facility] 03/21 for 1 week of progressive SOB and R sided chest pain for several months. Noted to have R hilar mass on CT chest measuring 5x4.7 cm and invading into the adjacent mediastinum with R mainstem bronchus narrowing and complete occlusion of the proximal RUL bronchus. Intubated en route to the MICU 03/22 due to increasing O2 requirements. Extubated 03/26 with stable respiratory status since. MICU course significant for bronchoscopy 03/24 with stent of proximal R mainstem bronchus and biopsy with path report of NSCLC favoring adenocarcinoma. Currently being managed by [facility] oncology for acute hypoxic resp failure and NSCLC favoring adenocarcinoma. Updates 03/31/25: Approved for PET-CT inpatient due to emergent need for treatment planning complicated by pending discharge to acute rehab, ordered today CT sim yesterday 03/30, 8Gy in 1 fraction to R hilar mass tomorrow 03/31 PT/OT recommending high intensity rehab Acute hypoxic respiratory failure C/f aspiration PNA Currently on 2 L NC from 5 L. Pt states she is not SOB or on home O2 at baseline. Currently afebrile, VSS. Extubated to HFNC 03/26 and weaned to 5 L NC 03/28. Resp cx growing rare mixed gram positive and gram negative organisms. BCx NGTD. CT chest 03/21 with 5x4.7cm R hilar mass invading into the adjacent mediastinum causing compression of the R mainstem bronchus and proximal RUL bronchus. CXR 03/23 showing interval worsening and collapse of the RUL. CXR 03/29 showing R upper lung atelectasis and small bilateral pleural effusions. S/p bronchoscopy with stent and biopsy 03/24. Likely 2/2 to compression from extensive R hilar mass although pneumonia incl aspiration PNA is a possibility PLAN: Wean O2 as tolerated Albuterol PRN New right hilar mass s/p biopsy, NSCLC favoring adenocarcinoma R mainstem bronchus narrowing s/p stent Surgical path from R lung biopsy 03/24 showing NSCLC carcinoma, favor adenocarcinoma in 4R lymph node, tumor cells positive for TTF-1 (8G7G3) and CK7, negative for p40. Viable tumor nuclei: 20%. TPS 90%. CT chest 03/21 with 5x4.7cm R hilar mass invading into the adjacent mediastinum causing compression of the R mainstem bronchus and proximal RUL bronchus. CXR 03/23 showing interval worsening and collapse of the RUL. S/p bronchoscopy with stent and biopsy 03/24. CT C/A/P 03/28 showing re-demonstrated R hilar mass now with R bronchial stent stent as well as L adrenal 2 cm nodule and hypodense lesion in the L anterior perihepatic space. No mets on MRI brain 03/29. Rad onc consulted. Supportive onc consulted, recs below. Patient approved for inpatient PET-CT 03/31 for better characterization of adrenal and liver lesions due to emergent need for treatment complicated by pending discharge to acute rehab. PLAN: Follow up on outpatient thoracic onc follow up (pt prefers [facility]) Supportive onc recs 03/30: start acetaminophen 975mg PO q8h PRN for mild pain, start oxycodone IR 5mg PO q6h PRN for moderate to severe pain, start scheduled tizanidine 4mg PO once daily HS (before sleep per pt preference; dc PRN tizanidine) Change prochlorperazine 10mg PO/IV q6h PRN for n/v, first line, change ondansetron 4mg PO/IV q6h PRN for n/v, second line Discontinue scheduled Miralax, start Miralax 17g PO once daily PRN for constipation 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 Patient denies orthopnea, with 2+ pitting edema bilaterally; per daughter this is a significant improvement from past volume status. Echo 03/22 showing no regional left ventricular wall motion abnormalities, normal LV cavity size, no LVH, mildly increased septal wall thickness. PLAN: Monitor volume status Continue Entresto HTN PLAN: Continue amlodipine Continue metoprolol CAD s/p CABG PLAN: Continue ezetimibe Continue atorvastatin Afib PLAN: Continue metoprolol Continue Eliquis DM PLAN: Cont SSI #1, lispro, 0-5 Units, subcutaneous, q4h GERD PLAN: Cont pantoprazole Access R PIV Fluids Caution with HF Electrolytes Mg>2 K>4 Nutrition Dietary Orders (From admission, onward) Start Ordered 03/29/25 1429 Adult diet Regular; Thin 0 Diet effective now Question Answer Comment Diet type Regular Fluid consistency Thin 0 03/29/25 1429 03/22/25 0626 May Participate in Room Service With Assistance ( ROOM SERVICE MAY PARTICIPATE WITH ASSISTANCE) Once Question: . Answer: Yes 03/22/25 0625 DVT PPx Eliquis GI PPx Pantoprazole Bowel regimen Miralax Pain Antimicrobials This patient does not have an active medication from one of the medication groupers. Code status Full Code, confirmed on floor admission ACP docs, surrogate decision maker Surrogate decision maker: Ben Funez Mobile Relation: Father Primary Emergency Contact Primary Emergency Contact: Ben Funez Mobile Relation: Father Secondary Emergency Contact Preferred language [place] Supervisor Plating [employer] Point Assembly needed? No DISPO Pending Esme Moore MD Internal Medicine PGY-1 [1] albuterol, 2.5 mg, nebulization, TID [Held by provider] apixaban, 5 mg, oral, BID atorvastatin, 40 mg, oral, Daily ezetimibe, 10 mg, oral, Daily insulin lispro, 0-5 Units, subcutaneous, q4h metoprolol tartrate, 25 mg, oral, BID pantoprazole, 40 mg, oral, Daily before breakfast potassium phosphate (monobasic), 500 mg, oral, 4x daily sacubitriL-valsartan, 1 tablet, oral, BID sodium chloride, 3 mL, nebulization, TID spironolactone, 12.5 mg, oral, Daily tiZANidine, 4 mg, oral, Nightly [2] [3] PRN medications: acetaminophen, dextrose, dextrose, eucerin, glucagon, glucagon, ipratropium-albuteroL, ondansetron OR ondansetron, oxyCODONE, oxygen, phenyleph-min oil-petrolatum, polyethylene glycol, prochlorperazine OR prochlorperazine Cosigned by Shantanu Gilliland MD at 03/31/2025 9:29 PM EDT Associated attestation - Shantanu Gilliland MD - 03/31/2025 9:29 PM EDT I saw and evaluated the patient. I personally obtained the back and critical portions of the history and physical exam or was physically present for back and critical portions performed by the resident/fellow. I reviewed the resident/fellow's documentation and discussed the patient with the resident/fellow. I agree with the resident/fellow's medical decision making as documented in the note. Patient is a 64-year-old female who presented with acute hypoxic respiratory failure was found to have right hilar mass. Biopsy suggestive of non-small cell lung cancer. Plan is for patient undergo PET scan for completing the staging workup. Radiation oncology has been consulted. Will need plan from thoracic oncology [facility] ONCOLOGY PROGRESS NOTE Summary Statement Ms. 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 She was transferred from outside hospital where CT chest was negative for PE, noted to have R hilar mass measuring 5x4.7cm invading into the adjacent mediastinum about the lateral aspect of the trachea narrowing the R mainstem bronchus with the proximal RUL bronchus completely occluded with mild GGOs in the medial RUL and partial atelectasis of the RLL as well. She was transferred to the MICU on 03/22 for further care but was intubated en route. Pt had increasing O2 requirements up to 100% FiO2 on the vent on 03/23 and CXR showed progressive worsening and collapse of the RUL on 03/23. EKGs from 03/24 in AM showed RBBB and c/f [place]. Repeat EKG showed RBBB and no ST elevation or depression and trops were negative. Underwent bronchoscopy with stenting and biopsy 03/24; prelim path impression is NSCLC, final path pending. 03/25 pt was able to wean down to 40% FiO2. Pt given 60mg BID of lasix IV 03/25 d/t bilateral pleural effusions on CXR and effusion on the R side during POCUS with good urine output. Restarted Eliquis 03/25. Pt on Unasyn 03/22- for suspected underlying pna. Expect to stop after 7 total days ending 03/29. Tolerated vent weaning and was extubated 03/26 with stable respiratory status since. Continued diuresis with IV Lasix 60mg BID on 03/26 and 03/27. Overall improvement in CXR bilateral effusions so held diuresis on 03/28. Oncology consulted on 03/27 for c/f NSCLC, recommended to obtain CT chest and abd w IV contrast and MRI brain w/wo contrast. Rad onc consulted for consideration of thoracic radiation. Patient weaned to 5 L NC on 03/28 and transferred to [facility] oncology for management of new NSCLC and acute hypoxic respiratory failure. On hospital day 8. Subjective Pt awake and comfortable, complaining of mild headache. Informed patient of MRI and path findings, asked for conversation when father arrives Objective Physical Exam Constitutional: Appearance: Normal appearance. HENT: Head: Normocephalic and atraumatic. Eyes: Extraocular Movements: Extraocular movements intact. Cardiovascular: Rate and Rhythm: Normal rate and regular rhythm. Heart sounds: Normal heart sounds. Pulmonary: Breath sounds: Wheezing and rhonchi present. Comments: Diffuse rhonchi Abdominal: Palpations: Abdomen is soft. Tenderness: There is abdominal tenderness. Comments: LLQ tenderness on light and deep palpation Musculoskeletal: Cervical back: Neck supple. Right lower le+ Edema present. Left lower le+ Edema present. Neurological: Mental Status: She is alert. Cranial Nerves: Cranial nerves 2-12 are intact. Motor: Weakness present. Comments: 4/5 strength bilateral lower extremities Psychiatric: Attention and Perception: Attention and perception normal. Behavior: Behavior normal. Last Recorded Vitals Blood pressure 127/81, pulse 74, temperature 36.5 C (97.7 F), temperature source Temporal, resp. rate 18, height 1.778 m (5' 10 ), weight 117 kg (258 lb 1.6 oz), SpO2 96%. Intake/Output last 3 Shifts: I/O last 3 completed shifts: In: 570 (4.9 mL/kg) [P.O.:250; I.V.:120 (1 mL/kg); IV Piggyback:200] Out: 1500 (12.8 mL/kg) [Urine:1500 (0.4 mL/kg/hr)] Weight: 117.1 kg Relevant Results Scheduled medications Scheduled Medications[1] Continuous medications Continuous Medications[2] PRN medications PRN Medications[3] Results for orders placed or performed during the hospital encounter of 03/22/25 (from the past 24 hours) Renal Function Panel Result Value Ref Range Glucose 212 (H) 74 - 99 mg/dL Sodium 137 136 - 145 mmol/L Potassium 3.3 (L) 3.5 - 5.3 mmol/L Chloride 97 (L) 98 - 107 mmol/L Bicarbonate 33 (H) 21 - 32 mmol/L Anion Gap 10 10 - 20 mmol/L Urea Nitrogen 17 6 - 23 mg/dL Creatinine 0.63 0.50 - 1.05 mg/dL eGFR >90 >60 mL/min/1.73m*2 Calcium 9.0 8.6 - 10.6 mg/dL Phosphorus 2.2 (L) 2.5 - 4.9 mg/dL Albumin 3.0 (L) 3.4 - 5.0 g/dL CBC Result Value Ref Range WBC 11.3 4.4 - 11.3 x10*3/uL nRBC 0.0 0.0 - 0.0 /100 WBCs RBC 4.17 4.00 - 5.20 x10*6/uL Hemoglobin 12.8 12.0 - 16.0 g/dL Hematocrit 40.5 36.0 - 46.0 % MCV 97 80 - 100 fL MCH 30.7 26.0 - 34.0 pg MCHC 31.6 (L) 32.0 - 36.0 g/dL RDW 12.3 11.5 - 14.5 % Platelets 194 150 - 450 x10*3/uL POCT GLUCOSE Result Value Ref Range POCT Glucose 189 (H) 74 - 99 mg/dL POCT GLUCOSE Result Value Ref Range POCT Glucose 190 (H) 74 - 99 mg/dL CBC and Auto Differential Result Value Ref Range WBC 10.2 4.4 - 11.3 x10*3/uL nRBC 0.0 0.0 - 0.0 /100 WBCs RBC 4.08 4.00 - 5.20 x10*6/uL Hemoglobin 12.8 12.0 - 16.0 g/dL Hematocrit 40.0 36.0 - 46.0 % MCV 98 80 - 100 fL MCH 31.4 26.0 - 34.0 pg MCHC 32.0 32.0 - 36.0 g/dL RDW 12.5 11.5 - 14.5 % Platelets 201 150 - 450 x10*3/uL Neutrophils % 76.4 40.0 - 80.0 % Immature Granulocytes %, Automated 0.6 0.0 - 0.9 % Lymphocytes % 11.7 13.0 - 44.0 % Monocytes % 7.9 2.0 - 10.0 % Eosinophils % 3.0 0.0 - 6.0 % Basophils % 0.4 0.0 - 2.0 % Neutrophils Absolute 7.76 (H) 1.20 - 7.70 x10*3/uL Immature Granulocytes Absolute, Automated 0.06 0.00 - 0.70 x10*3/uL Lymphocytes Absolute 1.19 (L) 1.20 - 4.80 x10*3/uL Monocytes Absolute 0.80 0.10 - 1.00 x10*3/uL Eosinophils Absolute 0.30 0.00 - 0.70 x10*3/uL Basophils Absolute 0.04 0.00 - 0.10 x10*3/uL Magnesium Result Value Ref Range Magnesium 2.06 1.60 - 2.40 mg/dL Renal function panel Result Value Ref Range Glucose 167 (H) 74 - 99 mg/dL Sodium 138 136 - 145 mmol/L Potassium 3.1 (L) 3.5 - 5.3 mmol/L Chloride 98 98 - 107 mmol/L Bicarbonate 32 21 - 32 mmol/L Anion Gap 11 10 - 20 mmol/L Urea Nitrogen 15 6 - 23 mg/dL Creatinine 0.42 (L) 0.50 - 1.05 mg/dL eGFR >90 >60 mL/min/1.73m*2 Calcium 9.0 8.6 - 10.6 mg/dL Phosphorus 3.0 2.5 - 4.9 mg/dL Albumin 2.9 (L) 3.4 - 5.0 g/dL POCT GLUCOSE Result Value Ref Range POCT Glucose 266 (H) 74 - 99 mg/dL POCT GLUCOSE Result Value Ref Range POCT Glucose 252 (H) 74 - 99 mg/dL POCT GLUCOSE Result Value Ref Range POCT Glucose 208 (H) 74 - 99 mg/dL POCT GLUCOSE Result Value Ref Range POCT Glucose 191 (H) 74 - 99 mg/dL Rad Onc CT Sim Images Result Date: 03/30/2025 These images are not reportable by radiology and will not be interpreted by Radiologists. XR chest 1 view Result Date: 03/30/2025 Interpreted By: Con Dougherty and Krasnoschlik Nicholas STUDY: XR CHEST 1 VIEW; 03/30/2025 8:22 am INDICATION: Signs/Symptoms:Eval R sided pleural effusion. COMPARISON: Chest radiograph 03/28/2025, CT chest 03/28/2025 ACCESSION NUMBER(S): [id number] ORDERING CLINICIAN: LISSETTE MAHARAJ FINDINGS: AP radiograph of the chest was provided. Medical devices: Patient is status post median sternotomy. CARDIOMEDIASTINAL SILHOUETTE: Cardiomediastinal silhouette is normal in size and configuration. Severe aortic knob calcifications. LUNGS: Similar appearance of bibasilar hazy opacities. Blunting of the bilateral costophrenic angles. Right upper lung atelectasis is again noted, consistent with patient's history of a right hilar mass better visualized on CT chest abdomen pelvis 03/28/2025. No pneumothorax. ABDOMEN: No remarkable upper abdominal findings. BONES: No acute osseous changes. 1. Right upper lung atelectasis is again noted, consistent with patient's history of a right hilar mass better visualized on CT chest abdomen pelvis 03/28/2025. 2. Similar appearance of bibasilar hazy opacities and blunting of the bilateral costophrenic angles, likely small bilateral pleural effusions. Infectious etiology can not be excluded. I personally reviewed the images/study and I agree with the findings as stated by resident physician Jose Oneal MD. This study was interpreted at [place], [place]. MACRO: None Signed by: Con Dougherty 03/30/2025 2:09 PM Dictation workstation: [id number] Electrocardiogram, 12-lead PRN ACS symptoms Result Date: 03/29/2025 Atrial fibrillation Right bundle branch block Abnormal ECG When compared with ECG of 24-MAR-2025 08:45, Atrial fibrillation has replaced Sinus rhythm Nonspecific T wave abnormality, improved in Inferior leads Nonspecific T wave abnormality has replaced inverted T waves in Anterior leads Confirmed by Roc Ling ([id number]) on 03/29/2025 2:14:27 PM MR brain w and wo IV contrast Result Date: 03/29/2025 Interpreted By: Lupe Green, STUDY: MR BRAIN W AND WO IV CONTRAST; 03/29/2025 9:55 am INDICATION: Signs/Symptoms:new cancer staging. New right hilar mass. COMPARISON: CT head 03/21/2025. ACCESSION NUMBER(S): [id number] ORDERING CLINICIAN: BETH HAYDEN TECHNIQUE: Multiplanar, multi-sequence MRI of the brain performed before and after the administration of intravenous contrast. INTRAVENOUS CONTRAST DOSE:20 ML Dotarem. FINDINGS: VENTRICLES and EXTRA-AXIAL SPACES: No hydrocephalus.No abnormal extra-axial fluid collection. Basal cisterns are patent.Pituitary gland and sella are unremarkable. BRAIN PARENCHYMA:Parenchyma is within normal limits for age.No acute territorial infarct or hemorrhage. No mass or mass effect.No areas of abnormal enhancement. PARANASAL SINUSES/MASTOIDS: Mild mucosal thickening in the left sphenoid and maxillary sinuses.Mild opacification of bilateral mastoid air cells. OSSEOUS STRUCTURES: No suspicious osseous lesions. OTHER: None. No acute intracranial abnormality. No evidence of intracranial metastases. I personally reviewed the images/study and I agree with the findings as stated. MACRO: None. Signed by: Lupe Green 03/29/2025 10:06 AM Dictation workstation: [id number] Assessment/Plan Ms. 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 She originally presented to [facility] 03/21 for 1 week of progressive SOB and R sided chest pain for several months. Noted to have R hilar mass on CT chest measuring 5x4.7 cm and invading into the adjacent mediastinum with R mainstem bronchus narrowing and complete occlusion of the proximal RUL bronchus. Intubated en route to the MICU 03/22 due to increasing O2 requirements. Extubated 03/26 with stable respiratory status since. MICU course significant for bronchoscopy 03/24 with stent of proximal R mainstem bronchus and biopsy with prelim path report of NSCLC. Currently being managed by [facility] oncology for acute hypoxic resp failure and NSCLC favoring adenocarcinoma. Updates 03/30/25: Surgical path from R lung biopsy 03/24 showing NSCLC carcinoma, favor adenocarcinoma in 4R lymph node, tumor cells positive for TTF-1 (8G7G3) and CK7, negative for p40. Viable tumor nuclei: 20%. TPS 90%. Rad onc recs: Palliative RT, 8Gy in 1 fraction to R hilar mass, CT sim today 03/30, treat 04/01 Expedited PET-CT for better characterization of adrenal and liver lesions CT C/A/P 03/28 showing redemonstrated R hilar mass now with R bronchial stent stent as well as L adrenal 2 cm nodule and hypodense lesion in the L anterior perihepatic space. No mets on MRI brain 03/29 CXR today showing R upper lung atelectasis and small bilateral pleural effusions PT/OT recommending high intensity rehab Acute hypoxic respiratory failure C/f aspiration PNA Currently on 5 L NC. Pt states she is not SOB or on home O2 at baseline. Currently afebrile, VSS. Extubated to HFNC 03/26 and weaned to 5 L NC 03/28. Resp cx growing rare mixed gram positive and gram negative organisms. BCx NGTD. CT chest 03/21 with 5x4.7cm R hilar mass invading into the adjacent mediastinum causing compression of the R mainstem bronchus and proximal RUL bronchus. CXR 03/23 showing interval worsening and collapse of the RUL. CXR today 03/29 showing R upper lung atelectasis and small bilateral pleural effusions. S/p bronchoscopy with stent and biopsy 03/24. Likely 2/2 to compression from extensive R hilar mass although pneumonia incl aspiration PNA is a possibility PLAN: Wean O2 as tolerated Completed weeklong course of Unasyn Cef and azithro dc'd Albuterol PRN Advanced to regular diet New right hilar mass s/p biopsy, NSCLC favoring adenocarcinoma R mainstem bronchus narrowing s/p stent Surgical path from R lung biopsy 03/24 showing NSCLC carcinoma, favor adenocarcinoma in 4R lymph node, tumor cells positive for TTF-1 (8G7G3) and CK7, negative for p40. Viable tumor nuclei: 20%. TPS 90%. CT chest 03/21 with 5x4.7cm R hilar mass invading into the adjacent mediastinum causing compression of the R mainstem bronchus and proximal RUL bronchus. CXR 03/23 showing interval worsening and collapse of the RUL. S/p bronchoscopy with stent and biopsy 03/24. CT C/A/P 03/28 showing re-demonstrated R hilar mass now with R bronchial stent stent as well as L adrenal 2 cm nodule and hypodense lesion in the L anterior perihepatic space. No mets on MRI brain 03/29. Rad onc consulted. Supportive onc consulted, recs below. PLAN: Rad onc recs: Palliative RT, 8Gy in 1 fraction to R hilar mass, CT sim today 03/30, treat 04/01 Expedited PET-CT for better characterization of adrenal and liver lesions Outpatient NGS, PDL1 % Supportive onc recs 03/30: start acetaminophen 975mg PO q8h PRN for mild pain, start oxycodone IR 5mg PO q6h PRN for moderate to severe pain, start scheduled tizanidine 4mg PO once daily HS (before sleep per pt preference; dc PRN tizanidine) Change prochlorperazine 10mg PO/IV q6h PRN for n/v, first line, change ondansetron 4mg PO/IV q6h PRN for n/v, second line Discontinue scheduled Miralax, start Miralax 17g PO once daily PRN for constipation 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 Patient denies orthopnea, with 2+ pitting edema bilaterally; per daughter this is a significant improvement from past volume status. Echo 03/22 showing no regional left ventricular wall motion abnormalities, normal LV cavity size, no LVH, mildly increased septal wall thickness. PLAN: Monitor volume status Continue Entresto HTN PLAN: Continue amlodipine Continue metoprolol CAD s/p CABG PLAN: Continue ezetimibe Continue atorvastatin Afib PLAN: Continue metoprolol Continue Eliquis DM PLAN: Cont SSI #1, lispro, 0-5 Units, subcutaneous, q4h GERD PLAN: Cont pantoprazole Access R PIV Fluids Caution with HF Electrolytes Mg>2 K>4 Nutrition Dietary Orders (From admission, onward) Start Ordered 03/29/25 1429 Adult diet Regular; Thin 0 Diet effective now Question Answer Comment Diet type Regular Fluid consistency Thin 0 03/29/25 1429 03/22/25 0626 May Participate in Room Service With Assistance ( ROOM SERVICE MAY PARTICIPATE WITH ASSISTANCE) Once Question: . Answer: Yes 03/22/25 0625 DVT PPx Eliquis GI PPx Pantoprazole Bowel regimen Miralax Pain Antimicrobials This patient does not have an active medication from one of the medication groupers. Code status Full Code, confirmed on floor admission ACP docs, surrogate decision maker Surrogate decision maker: Ben Funez Mobile Relation: Father Primary Emergency Contact Primary Emergency Contact: Ben Funez Mobile Relation: Father Secondary Emergency Contact Preferred language [place] Supervisor [employer] Assembly needed? No DISPO Pending Esme Moore MD Internal Medicine PGY-1 [1] albuterol, 2.5 mg, nebulization, TID apixaban, 5 mg, oral, BID atorvastatin, 40 mg, oral, Daily ezetimibe, 10 mg, oral, Daily insulin lispro, 0-5 Units, subcutaneous, q4h metoprolol tartrate, 25 mg, oral, BID pantoprazole, 40 mg, oral, Daily before breakfast pantoprazole, 40 mg, intravenous, Daily before breakfast sacubitriL-valsartan, 1 tablet, oral, BID sodium chloride, 3 mL, nebulization, TID spironolactone, 12.5 mg, oral, Daily tiZANidine, 4 mg, oral, Nightly [2] [3] PRN medications: acetaminophen, dextrose, dextrose, eucerin, glucagon, glucagon, ipratropium-albuteroL, ondansetron OR ondansetron, oxyCODONE, oxygen, phenyleph-min oil-petrolatum, polyethylene glycol, prochlorperazine OR prochlorperazine Cosigned by Lissette Maharaj MD at 04/04/2025 7:03 AM EDT Associated attestation - Lissette Maharaj MD - 04/04/2025 7:03 AM EDT I saw and evaluated the patient. I personally obtained the back and critical portions of the history and physical exam or was physically present for back and critical portions performed by the resident/fellow. I reviewed the resident/fellow's documentation and discussed the patient with the resident/fellow. I agree with the resident/fellow's medical decision making as documented in the note. Lissette Maharaj MD Occupational Therapy Evaluation and Treatment Patient Name: Melissa Dubose Today's Date: 03/30/2025 Room: [address] [place], [place] [address]A Time Calculation Start Time: 1217 Stop Time: 1311 Time Calculation (min): 54 min Assessment IP OT Assessment OT Assessment: Pt's abilty to complete ADLs currently limited by deficits in functional strength, activity tolerance, and dynamic balance. The pt demos the ability to complete the majority of ADL tasks with Max A - SBA and was currently unable to complete sit to stand transfer despite Max A. Pt will benefit from continued OT while admitted to increase IND and safety prior to d/c. Prognosis: Good Barriers to Discharge Home: Caregiver assistance, Physical needs Caregiver Assistance: Caregiver assistance needed per identified barriers - however, level of patient's required assistance exceeds assistance available at home Physical Needs: 24hr mobility assistance needed, Intermittent ADL assistance needed, In-home setup navigation limited by function/safety, Ambulating household distances limited by function/safety Evaluation/Treatment Tolerance: Patient tolerated treatment well Medical Staff Made Aware: Yes End of Session Communication: Bedside nurse End of Session Patient Position: Bed, 3 rail up, Alarm on Plan: Inpatient Plan Treatment Interventions: ADL retraining, Endurance training, UE strengthening/ROM, Functional transfer training, Patient/family training, Equipment evaluation/education, Compensatory technique education OT Frequency: 4 times per week (Based on current functional status and rehab potential, patient is anticipated to tolerate and benefit from 5 or more days per week of skilled rehabilitative therapy after discharge from this acute inpatient hospitalization.) OT Discharge Recommendations: Other (Comment) (Mod intensity vs high intensity. Pt would be great candidate for high intensity OT services post d/c with improvement of activity tolerance. Will continue to assess while admitted) Equipment Recommended upon Discharge: Bedside commode OT Recommended Transfer Status: Assist of 2 OT - OK to Discharge: Yes OT Assessment OT Assessment Results: Decreased ADL status, Decreased endurance, Decreased functional mobility, Decreased IADLs, Decreased upper extremity strength Prognosis: Good Barriers to Discharge: (CLOF) Evaluation/Treatment Tolerance: Patient tolerated treatment well Medical Staff Made Aware: Yes Strengths: Attitude of self, Support of Caregivers, Insight into problems Barriers to Participation: Comorbidities Subjective Current Problem: 1. Non-small cell cancer of right lung (Multi) NM PET CT bone skull base to mid thigh CANCELED: NM PET CT whole body 2. Acute hypoxic respiratory failure Transthoracic Echo Complete Transthoracic Echo Complete Bronchoscopy Tier 2; Diagnostic Bronchoscopy Tier 2; Diagnostic Cytology Consultation (Non-Gynecologic) Cytology Consultation (Non-Gynecologic) Surgical Pathology Exam Surgical Pathology Exam Referral To Hematology and Oncology Focused Solid Tumor Assay Focused Solid Tumor Assay CANCELED: Bronchoscopy Tier 2; Diagnostic General: Reason for Referral: 64 yo female admitted for acute hypoxic respiratory failure requiring mechanical ventilation. Past Medical History Relevant to Rehab: PMHx of of CAD s/p CABG in 2016, HTN, afib, T2DM, ICM HFimpEF (11/2024 TTE EF 50-55%) Prior to Session Communication: Bedside nurse Patient Position Received: Bed, 3 rail up, Alarm on Family/Caregiver Present: Yes Caregiver Feedback: Father present and engaged in OT eval General Comment: Pt presents supine in bed upon arrival - reports I was really frustrated with myself after working with that girl from PT, I am surprised I was able to this much. Precautions: Hearing/Visual Limitations: Readers Medical Precautions: Fall precautions, Oxygen therapy device and L/min (1 L O2) Pain: Pain Assessment Pain Assessment: 0-10 0-10 (Numeric) Pain Score: 3 Pain Type: Acute pain Pain Location: Generalized Pain Interventions: Repositioned Response to Interventions: Content/relaxed Lines/Tubes/Drains: Urethral Catheter (Active) Number of days: 8 Objective Cognition: Overall Cognitive Status: Within Functional Limits Arousal/Alertness: Appropriate responses to stimuli Orientation Level: Oriented X4 Following Commands: Follows all commands and directions without difficulty Home Living: Type of Home: House Lives With: (Lives with dtr & 13 yo foster son) Home Adaptive Equipment: Walker rolling or standard, Hospital bed, Cane, Wheelchair-manual (Rollator, electric hospital bed) Home Layout: Multi-level, Full bath main level, Able to live on main level with bedroom/bathroom, Laundry main level Home Access: Stairs to enter with rails Entrance Stairs-Rails: Left Entrance Stairs-Number of Steps: 2 of 5 depending on door Bathroom Shower/Tub: Tub/shower unit Bathroom Toilet: Handicapped height Bathroom Equipment: Shower chair with back, Hand-held shower hose, Raised toilet seat without rails Prior Function: Level of [place]: Independent with ADLs and functional transfers, Independent with homemaking with ambulation ADL Assistance: Independent Homemaking Assistance: Independent Ambulatory Assistance: Independent Vocational: Unemployed Hand Dominance: Right Prior Function Comments: - falls IADL History: Homemaking Responsibilities: Yes Meal Prep Responsibility: Primary Laundry Responsibility: Primary Cleaning Responsibility: Primary Bill Paying/Finance Responsibility: Primary Shopping Responsibility: Primary Glueline Worker Responsibility: Primary Homemaking Comments: Some assistance from dtr as needed Current License: Yes Mode of Transportation: Car Occupation: Unemployed ADL: Eating Assistance: Independent (Anticipated) Grooming Assistance: Minimal Bathing Assistance: Moderate (Anticipated) UE Dressing Assistance: Minimal LE Dressing Assistance: Maximal Toileting Assistance with Device: Total Activity Tolerance: Endurance: Tolerates 10 - 20 min exercise with multiple rests, Decreased tolerance for upright activites Balance: Static Sitting Balance Static Sitting-Balance Support: No upper extremity supported, Feet supported Static Sitting-Level of Assistance: Distant supervision Static Sitting-Comment/Number of Minutes: EOB Bed Mobility/Transfers: Bed Mobility/Transfers: Bed Mobility Bed Mobility: Yes Bed Mobility 1 Bed Mobility 1: Supine to sitting, Sitting to supine Level of Assistance 1: Moderate assistance Bed Mobility Comments 1: Log roll to R, assistance with LEs and trunk Bed Mobility 2 Bed Mobility 2: Rolling right, Rolling left Level of Assistance 2: Minimum assistance Bed Mobility Comments 2: Use of bed rails and Transfers Transfer: Yes Transfer 1 Transfer From 1: Sit to, Stand to Transfer to 1: Stand, Sit Technique 1: Sit to stand, Stand to sit Transfer Device 1: Walker Transfer Level of Assistance 1: Maximum assistance Trials/Comments 1: Unable to clear hips from bed - pt reports my legs just don't want to work IADL's: Homemaking Responsibilities: Yes Meal Prep Responsibility: Primary Laundry Responsibility: Primary Cleaning Responsibility: Primary Bill Paying/Finance Responsibility: Primary Shopping Responsibility: Primary Glueline Worker Responsibility: Primary Homemaking Comments: Some assistance from dtr as needed Current License: Yes Mode of Transportation: Car Occupation: Unemployed Vision: Vision - Basic Assessment Current Vision: No visual deficits and Sensation: Light Touch: No apparent deficits Strength: Strength Comments: B UEs grossly 4+/5 Perception: Inattention/Neglect: Appears intact Coordination: Movements are Fluid and Coordinated: Yes Hand Function: Hand Function Gross Grasp: Functional Coordination: Functional Extremities: RUE RUE : Exceptions to WFL (grossly 4+/5), LUE LUE: Exceptions to WFL (grossly 4+/5), , and Outcome Measures: [facility] Daily Activity Putting on and taking off regular lower body clothing: A lot Bathing (including washing, rinsing, drying): A lot Putting on and taking off regular upper body clothing: A little Toileting, which includes using toilet, bedpan or urinal: Total Taking care of personal grooming such as brushing teeth: A little Eating Meals: None Daily Activity - Total Score: 15 , OT Adult Other Outcome Measures 4AT: 4 AT - Education Documentation Body Mechanics, taught by Saad Antunez OT at 03/30/2025 2:45 PM. Learner: Patient Readiness: Acceptance Method: Explanation, Demonstration Response: Verbalizes Understanding, Needs Reinforcement Comment: ADLs and safety Precautions, taught by Saad Antunez OT at 03/30/2025 2:45 PM. Learner: Patient Readiness: Acceptance Method: Explanation, Demonstration Response: Verbalizes Understanding, Needs Reinforcement Comment: ADLs and safety ADL Training, taught by Saad Antunez OT at 03/30/2025 2:45 PM. Learner: Patient Readiness: Acceptance Method: Explanation, Demonstration Response: Verbalizes Understanding, Needs Reinforcement Comment: ADLs and safety Education Comments No comments found. Goals: Encounter Problems Encounter Problems (Active) ADLs Patient with complete upper body dressing with independent level of assistance donning and doffing all UE clothes with no adaptive equipment while supported sitting (Progressing) Start: 03/30/25 Expected End: 04/20/25 Patient with complete lower body dressing with moderate assist level of assistance donning and doffing all LE clothes with PRN adaptive equipment while supine in bed and supported sitting (Progressing) Start: 03/30/25 Expected End: 04/20/25 Patient will complete daily grooming tasks brushing teeth and washing face/hair with independent level of assistance and PRN adaptive equipment while edge of bed . (Progressing) Start: 03/30/25 Expected End: 04/20/25 Patient will complete toileting including hygiene clothing management/hygiene with moderate assist level of assistance and bedside commode. (Progressing) Start: 03/30/25 Expected End: 04/20/25 EXERCISE/STRENGTHENING Patient will be educated on BUE HEP for increased ADL performance. (Progressing) Start: 03/30/25 Expected End: 04/20/25 TRANSFERS Patient will complete functional transfers with least restrictive device with moderate assist level of assistance. (Progressing) Start: 03/30/25 Expected End: 04/20/25 Treatment Completed on Evaluation Activities of Daily Living: Grooming Grooming Level of Assistance: Minimum assistance Grooming Where Assessed: Edge of bed Grooming Comments: Sitting EOB to wash hair in basin and wash face, increased time for hair washing with Min A for thoroughness and cues for increased safety - pt demos increased SOB during activity and reports I think all of my air has run out after activity. UE Dressing UE Dressing Level of Assistance: Minimum assistance UE Dressing Where Assessed: Bed level UE Dressing Comments: Cues for technique and Min A for doffing gown and donning clean gown in bed LE Dressing LE Dressing: Yes Sock Level of Assistance: Maximum assistance LE Dressing Where Assessed: Edge of bed LE Dressing Comments: Education on technique for managing footwear, pt unable to achieve figure four and requries Max assist for donning B socks Toileting Toileting Level of Assistance: Dependent Where Assessed: Bed level Toileting Comments: Incontinent BM in bed during session, requires total assist to manage clothing and perform posterior hygiene while in bed, cues for increased IND, pt able to roll L and R with Min A using bed rail Therapy/Activity: Therapeutic Activity Therapeutic Activity Performed: Yes Therapeutic Activity 1: Attempted sit to stand x5, despite raising bed height, changing pt's positioning, and walker/no-walker, but unable to stand and clear buttocks from bed despite Max A. She reports I don't know why my legs are so weak. Education provided on benefit of continued attempts and strategies to prevent further weakness. Therapeutic Activity 2: Static sitting EOB for approx 20 minutes, cues for repositioning and safety throughout, pt requires supported rest break 2x during sitting activity. Therapeutic Activity 3: Cues for deep breathing throughout session to improve tolerance and recovery from activity. 03/30/25 at 2:47 PM Saad Antunez OT Rehab Office: [phone] Physical Therapy Physical Therapy Evaluation & Treatment Patient Name: Melissa Dubose Department: [facility] Room: 5010/5010-A Today's Date: 03/30/2025 Time Calculation Start Time: 1049 Stop Time: 1136 Time Calculation (min): 47 min Assessment/Plan PT Assessment PT Assessment Results: Decreased strength, Decreased endurance, Impaired balance, Decreased mobility, Pain Rehab Prognosis: Good Barriers to Discharge Home: Physical needs Physical Needs: Stair navigation into home limited by function/safety, Ambulating household distances limited by function/safety, 24hr mobility assistance needed, 24hr ADL assistance needed, High falls risk due to function or environment Evaluation/Treatment Tolerance: Patient limited by fatigue End of Session Communication: Bedside nurse Assessment Comment: 64 yo female presenting with decreased strength, endurance, balance, & mobility. Pt very fatigued this date & feeling weak from spending extended period of time in bed. Pt able to perform 2 sit <> stand transfers EOB & lateral/fwd/bck stepping with FWW. Pt will cont to benefit from skilled therapy while IP in order to improve functional mobility. Recommending HIGH intensity level of PT following discharge from acute hospital. End of Session Patient Position: Bed, 3 rail up, Alarm on IP OR SWING BED PT PLAN Inpatient or Swing Bed: Inpatient PT Plan Treatment/Interventions: Bed mobility, Transfer training, Gait training, Stair training, Balance training, Neuromuscular re-education, Strengthening, Endurance training, Range of motion, Therapeutic exercise, Therapeutic activity, Home exercise program, Positioning, Postural re-education PT Plan: Ongoing PT PT Frequency: 5 times per week PT Discharge Recommendations: High intensity level of continued care Equipment Recommended upon Discharge: Other (comment) (TBD pending discharge. Pt will need FWW if returning home & not to rehab.) PT Recommended Transfer Status: Assist x1, Assistive device PT - OK to Discharge: Yes (Meaning eval complete & discharge rec made.) Subjective PT Visit Info: PT Received On: 03/30/25 General Visit Information: General Reason for Referral: 64 yo female admitted for acute hypoxic respiratory failure requiring mechanical ventilation. Past Medical History Relevant to Rehab: PMHx of of CAD s/p CABG in 2016, HTN, afib, T2DM, ICM HFimpEF (11/2024 TTE EF 50-55%) Family/Caregiver Present: Yes Caregiver Feedback: Pt's father present for session & engaged. Prior to Session Communication: Bedside nurse Patient Position Received: Bed, 3 rail up, Alarm on General Comment: Pt lying in bed upon PT entry into room. Agreeable to therapy. Noted 6L O2 via NC connected to wall source, tele, cont pulse ox, plaza. Home Living: Home Living Type of Home: House Lives With: (Lives with dtr & 13 yo foster son) Home Adaptive Equipment: Walker rolling or standard, Hospital bed (Rollator, electric hospital bed) Home Layout: Multi-level Home Access: Stairs to enter with rails Entrance Stairs-Rails: Left Entrance Stairs-Number of Steps: 4-5 Bathroom Equipment: Shower chair with back Home Living Comments: Pt reports that she only uses main level of home. Prior Level of Function: Prior Function Per Pt/Caregiver Report Level of [place]: Independent with ADLs and functional transfers, Independent with homemaking with ambulation Receives Help From: Family (Dtr) ADL Assistance: Independent Homemaking Assistance: Independent Ambulatory Assistance: Independent (No AD) Vocational: Unemployed Leisure: Patient: Right now?...sleeping! Prior Function Comments: Pt reports being indep, however, her dtr does live with her & helps with cooking/cleaning. Pt reports her dtr is home 01/04 & can assist her as needed. Precautions: Precautions Hearing/Visual Limitations: Readers Medical Precautions: Fall precautions, Oxygen therapy device and L/min (6L O2 via NC) Vital Signs Comment: Pt reporting dizziness while sitting EOB. Objective Pain: Pain Assessment Pain Assessment: 0-10 0-10 (Numeric) Pain Score: 0 - No pain Cognition: Cognition Overall Cognitive Status: Within Functional Limits Orientation Level: Oriented X4 Insight: Mild Impulsive: Mildly Processing Speed: Within funtional limits General Assessments: Activity Tolerance Endurance: Decreased tolerance for upright activites Early Mobility/Exercise Safety Screen: Proceed with mobilization - No exclusion criteria met Activity Tolerance Comments: Dizziness while sitting EOB; fatigue Sensation Light Touch: No apparent deficits Sensation Comment: Pt denies numbness/ tingling Strength Strength Comments: BLE at least 3/5 as evidenced by functional mobility. Perception Inattention/Neglect: Appears intact Coordination Movements are Fluid and Coordinated: Yes Coordination Comment: WFL as evidenced by functional mobility. Postural Control Postural Control: Within Functional Limits Posture Comment: Forward head/ rounded shoulders; pt unable to maintain upright trunk position for extended period of time d/t fatigue/ pain Static Sitting Balance Static Sitting-Balance Support: Bilateral upper extremity supported, Feet supported Static Sitting-Level of Assistance: (Close sup progressing to min A when fatigued) Static Sitting-Comment/Number of Minutes: 10 min Dynamic Sitting Balance Dynamic Sitting-Balance Support: Bilateral upper extremity supported, Feet supported Dynamic Sitting-Level of Assistance: Minimum assistance Dynamic Sitting-Balance: Forward lean Dynamic Sitting-Comments: Scooting to EOB Static Standing Balance Static Standing-Balance Support: Bilateral upper extremity supported (FWW) Static Standing-Level of Assistance: Minimum assistance Static Standing-Comment/Number of Minutes: Able to maintain ~1-2 min before fatiguing. Dynamic Standing Balance Dynamic Standing-Balance Support: Bilateral upper extremity supported (FWW) Dynamic Standing-Level of Assistance: Minimum assistance, Moderate assistance Dynamic Standing-Comments: Stepping EOB Functional Assessments: Bed Mobility Bed Mobility: Yes Bed Mobility 1 Bed Mobility 1: Supine to sitting Level of Assistance 1: Minimum assistance, Moderate assistance, Minimal verbal cues Bed Mobility Comments 1: HOB elevated, min/mod A for trunk elevation, cues for use of rail Bed Mobility 2 Bed Mobility 2: Sitting to supine Level of Assistance 2: Moderate assistance, Maximum assistance, Minimal verbal cues Bed Mobility Comments 2: HOB elevated, mod/max A for guiding BLEs back into bed Bed Mobility 3 Bed Mobility 3: Scooting Level of Assistance 3: Moderate assistance, +2, Minimal verbal cues Bed Mobility Comments 3: HOB flat, pt performing 3-4 bridge reps to scoot towards HOB w/ mod Ax2 using draw sheet to assist. Cues for sequencing bridges. Transfers Transfer: Yes Transfer 1 Transfer From 1: Bed to, Stand to Transfer to 1: Stand, Bed Transfer Device 1: Walker Transfer Level of Assistance 1: Moderate assistance, Minimal verbal cues Trials/Comments 1: Bed height elevated, mod A for elevation, cues for safe hand placement on walker. Pt performed 2 sit <> stand reps & required 2 attempts each time to fully clear bottom as she wanted to attempt it without this PTs assistance on first reps. Ambulation/Gait Training Ambulation/Gait Training Performed: No Extremity/Trunk Assessments: RLE RLE : Within Functional Limits LLE LLE : Within Functional Limits (Pt demo'd L knee buckling 1x during static standing causing her to lose balance back into bed with poor eccentric control.) Treatments: Therapeutic Activity Therapeutic Activity Performed: Yes Therapeutic Activity 1: Additional sit <> stand transfer performed. Therapeutic Activity 2: Pt performed R/L lateral stepping + forward/ backward stepping at EOB with FWW. Pt required min/mod Ax1 for balance + cues for sequencing. Therapeutic Activity 3: Deep breathing techniques performed throughout session to manage dizziness. Therapeutic Activity 4: Pt/family education provided regarding POC/ post-acute rehab services. Pt & her father asking appropriate questions throughout. Therapeutic Activity 5: Sitting EOB ~10 min while working on tolerance to upright, deep breathing, & trunk balance/ stability. Outcome Measures: [facility] Basic Mobility Turning from your back to your side while in a flat bed without using bedrails: A little Moving from lying on your back to sitting on the side of a flat bed without using bedrails: A lot Moving to and from bed to chair (including a wheelchair): A lot Standing up from a chair using your arms (e.g. wheelchair or bedside chair): A lot To walk in hospital room: A lot Climbing 3-5 steps with railing: Total Basic Mobility - Total Score: 12 Encounter Problems Encounter Problems (Active) PT Problem Pt will perform all aspects of bed mobility at mod indep. (Progressing) Start: 03/30/25 Expected End: 04/13/25 Pt will perform all transfers at mod indep w/ LRAD. (Progressing) Start: 03/30/25 Expected End: 04/13/25 Pt will amb 150' w/ LRAD at mod indep & no LOB. (Progressing) Start: 03/30/25 Expected End: 04/13/25 Pt will negotiate 5 steps w/ L ascending rail at min Ax1 in order to simulate home entrance. (Progressing) Start: 03/30/25 Expected End: 04/13/25 Education Documentation Precautions, taught by Serafin Rowley PT at 03/30/2025 2:20 PM. Learner: Father, Patient Readiness: Acceptance Method: Explanation, Demonstration Response: Verbalizes Understanding, Demonstrated Understanding, Needs Reinforcement Comment: Mobility training, POC Body Mechanics, taught by Serafin Rowley PT at 03/30/2025 2:20 PM. Learner: Father, Patient Readiness: Acceptance Method: Explanation, Demonstration Response: Verbalizes Understanding, Demonstrated Understanding, Needs Reinforcement Comment: Mobility training, POC Mobility Training, taught by Serafin Rowley PT at 03/30/2025 2:20 PM. Learner: Father, Patient Readiness: Acceptance Method: Explanation, Demonstration Response: Verbalizes Understanding, Demonstrated Understanding, Needs Reinforcement Comment: Mobility training, POC Education Comments No comments found. Serafin Rowley PT, DPT 03/30/25 1300 Discharge Planning Living Arrangements Children (Pt is [place]. Information is obtained from pt's father, Ben.) Support Systems Children;Parent Type of Residence Private residence Number of Stairs to Enter Residence 2 Number of Stairs Within Residence 10 Do you have animals or pets at home? Yes Type of Animals or Pets a dog Who is requesting discharge planning? Provider Home or Post Acute Services Other (Comment) Expected Discharge Disposition Home Does the patient need discharge transport arranged? No Financial Resource Strain How hard is it for you to pay for the very basics like food, housing, medical care, and heating? Not very Housing Stability In the last 12 months, was there a time when you were not able to pay the mortgage or rent on time? N In the past 12 months, how many times have you moved where you were living? 0 At any time in the past 12 months, were you homeless or living in a chcf (including now)? N Transportation Needs In the past 12 months, has lack of transportation kept you from medical appointments or from getting medications? no In the past 12 months, has lack of transportation kept you from meetings, work, or from getting things needed for daily living? No Patient Choice Provider Choice list and [facility] website (https://medicare.gov/care-compare #search) for post-acute Quality and Resource Measure Data were provided and reviewed with: Family;Patient Patient / Family choosing to utilize agency / facility established prior to hospitalization No Stroke Family Assessment Stroke Family Assessment Needed No Intensity of Service Intensity of Service 0-30 min Care Transitions Note Plan per Medical/Surgical Team: presenting with Acute hypoxic respiratory failure. Status: inpatient Payor Source: medicare Discharge disposition: home Expected date of discharge: TBD Barriers: none PCP / Primary Oncologist: Madison Magana MD Preferred Pharmacy: [facility] [place] [address] [facility] [address] Preferred home care agency: none Met with patient at bedside, introduced self and role. Demographics and insurance verifed with patient. Patient lives at home with daughter and grand children. Patients father is her teachable caregiver. Patient was independent with Adls prior to admission. Will continue to follow for any discharge planning needs. Vane Manzano RN TCC Melissa Dubose is a 64 y.o. female on day 8 of admission presenting with Acute hypoxic respiratory failure. Subjective Comfortable, supported with continuous O2 @ 6L/min, non productive cough Objective Last Recorded Vitals BP 116/79 (BP Location: Left arm, Patient Position: Lying) Pulse 81 Temp 36.7 C (98.1 F) (Temporal) Resp 16 Wt 117 kg (258 lb 1.6 oz) SpO2 97% Image Results Electrocardiogram, 12-lead PRN ACS symptoms Atrial fibrillation Right bundle branch block Abnormal ECG When compared with ECG of 24-MAR-2025 08:45, Atrial fibrillation has replaced Sinus rhythm Nonspecific T wave abnormality, improved in Inferior leads Nonspecific T wave abnormality has replaced inverted T waves in Anterior leads Confirmed by Roc Ling ([id number]) on 03/29/2025 2:14:27 PM Electrocardiogram, 12-lead PRN ACS symptoms Normal sinus rhythm with sinus arrhythmia Right bundle branch block Abnormal ECG No previous ECGs available Confirmed by Roc Ling ([id number]) on 03/29/2025 2:10:30 PM MR brain w and wo IV contrast Narrative: Interpreted By: Lupe Green, STUDY: MR BRAIN W AND WO IV CONTRAST; 03/29/2025 9:55 am INDICATION: Signs/Symptoms:new cancer staging. New right hilar mass. COMPARISON: CT head 03/21/2025. ACCESSION NUMBER(S): [id number] ORDERING CLINICIAN: BETH HAYDEN TECHNIQUE: Multiplanar, multi-sequence MRI of the brain performed before and after the administration of intravenous contrast. INTRAVENOUS CONTRAST DOSE:20 ML Dotarem. FINDINGS: VENTRICLES and EXTRA-AXIAL SPACES: No hydrocephalus.No abnormal extra-axial fluid collection. Basal cisterns are patent.Pituitary gland and sella are unremarkable. BRAIN PARENCHYMA:Parenchyma is within normal limits for age.No acute territorial infarct or hemorrhage. No mass or mass effect.No areas of abnormal enhancement. PARANASAL SINUSES/MASTOIDS: Mild mucosal thickening in the left sphenoid and maxillary sinuses.Mild opacification of bilateral mastoid air cells. OSSEOUS STRUCTURES: No suspicious osseous lesions. OTHER: None. Impression: No acute intracranial abnormality. No evidence of intracranial metastases. I personally reviewed the images/study and I agree with the findings as stated. MACRO: None. Signed by: Lupe Green 03/29/2025 10:06 AM Dictation workstation: [id number] Physical Exam General: awake, alert, resting comfortably, currently supported with supplemental oxygen, she appears deconditioned HEENT: pupils equal and round, no scleral icterus Pulmonary: Breathing comfortably at rest with supplemental oxygen Neuro: A&O x 3, cranial nerves II through XII grossly intact, sensation and strength intact Psych: Normal affect Relevant Results Lab Results Component Value Date WBC 10.2 03/30/2025 HGB 12.8 03/30/2025 HCT 40.0 03/30/2025 MCV 98 03/30/2025 PLT 201 03/30/2025 Lab Results Component Value Date GLUCOSE 167 (H) 03/30/2025 CALCIUM 9.0 03/30/2025 NA 138 03/30/2025 K 3.1 (L) 03/30/2025 CO2 32 03/30/2025 CL 98 03/30/2025 BUN 15 03/30/2025 CREATININE 0.42 (L) 03/30/2025 Assessment/Plan This is a 64-year-old female with multiple chronic health problems that presents to OSH 03/21 with hypoxic respiratory failure and CT findings of a right hilar mass invading the mediastinum. The patient underwent bronchoscopy on 03/24 with stenting of right mainstem. Pathology has returned adenocarcinoma with PD-L1 90%. MRI brain is unremarkable for metastatic disease. CT chest, abdomen, pelvis shows additional findings of bilateral supraclavicular LAD, right pleural effusion, left perihepatic and left adrenal lesions. Radiation oncology has been asked to assist with treatment planning. PLAN: The patient was discussed with my attending physician, Dr. Singh. Imaging results and indications for radiotherapy were reviewed with the patient and her father. Staging remains incomplete. Perihepatic and adrenal lesions are concerning for M1 disease. We discussed proceeding with urgent RT, 8Gy x1 fraction, to R hilar mass in an effort to protect her airway / prevent stent failure, allowing time for additional work up and treatment planning. The associated risks and benefits were discussed with the patient and her father. She has provided informed consent to proceed. -Palliative RT, 8Gy in 1 fraction, to R hilar mass -CT SIM today ~ 3pm -Treat ~2pm -Please schedule / Expedite PET CT in follow up to assist with treatment planning -Follow up referral to Dr. Arroyo at [facility] for additional RT considerations I spent 25 minutes in the professional and overall care of this patient. Baljeet Cintron PA-C [facility] INPATIENT FOLLOW-UP SERVICE DATE: 03/30/25 Updates and Recommendations (03/30/25): Start acetaminophen 975mg PO q8h PRN for mild pain Start oxycodone IR 5mg PO q6h PRN for moderate to severe pain [starting for pt's cancer related R side chest pain] Discontinue tizanidine PRN Start scheduled tizanidine 4mg PO once daily HS--scheduled per pt preference Change prochlorperazine 10mg PO/IV q6h PRN for n/v, first line Change ondansetron 4mg PO/IV q6h PRN for n/v, second line Discontinue scheduled Miralax Start Miralax 17g PO once daily PRN for constipation--PRN per pt preference iso recent loose stools Pt does not currently qualify for an appointment with outpatient Supportive Oncology. ASSESSMENT/PLAN: Melissa Dubose is a 64 y.o. female diagnosed with large hilar mass with obstruction of the BECCA bronchus s/p biopsy and bronchial stent--preliminary pathology showing NSCLC. PMHx significant for CAD (s/p CABG 2015), HTN, A-fib, DM2, and HFrEF 2/2 ischemic cardiomyopathy. She originally presented to [facility] on 03/21/25 for SOB and hypoxia. She was intubated and transferred to [facility] on 03/22/2025 for further evaluation and management of AHRF and new hilar mass. She was extubated 03/26/25 and transferred from MICU on 03/28/25. Supportive and Palliative Oncology is following for pain management. Neoplasm Related Pain Acute R sided chest pain 2/2 known malignancy. Chronic mid-low back pain 2/2 x4 past back surgeries per pt. Intermittent frontal headache pain related to critical illness vs caffeine withdrawal vs previous NPO status. Now denies. MRI brain without evidence of intracranial abnormality or brain metastasis. Pain type: Somatic Pain control: Fairly controlled Home regimen: tizanidine 4mg once daily HS Intolerances/previously tried: None Risk factors: None Renal and hepatic function WNL. Started on regular diet with thin liquids 03/29 afternoon Start acetaminophen 975mg PO q8h PRN for mild pain Start oxycodone IR 5mg PO q6h PRN for moderate to severe pain [starting for pt's cancer related R side chest pain] Discontinue tizanidine PRN Start scheduled tizanidine 4mg PO once daily HS--scheduled per pt preference Nausea Intermittent nausea without vomiting related to malignancy, previous NPO status. Home regimen: None EKG reviewed from 03/24/25, QTc 449 PPI per primary Change prochlorperazine 10mg PO/IV q6h PRN for n/v, first line Change ondansetron 4mg PO/IV q6h PRN for n/v, second line Constipation At risk for constipation related to medication side effects (including opioids and ondansetron), decreased PO intake, and prolonged immobility iso hospitalization, currently not constipated. Usual bowel pattern: Every day Home regimen: None LBM: 03/29/25, loose Discontinue scheduled Miralax Start Miralax 17g PO once daily PRN for constipation--PRN per pt preference iso recent loose stools Goal to have BM without straining q48-72h, adjust regimen as needed Disposition: Please start the process of having prior authorization with meds to beds deliver medications to patient prior to discharge via [facility] pharmacy. Prescriptions will need to be sent 48-72 hours prior to discharge so that a prior authorization can be completed. Discharge date pending resolution of acute hospital issues. Pt does not currently qualify for an appointment with outpatient [facility]. SIGNATURE: BERNADETTE Claudio PAGER/CONTACT: Contact information: [facility] Saturday-Saturday 8 AM-5 PM [employer] Secure chat or pager [phone]. After hours and weekends: pager [phone] SUBJECTIVE: Pain Assessment: Location: R chest, mid-low back, intermittent frontal headaches Duration: Intermittent Characteristics: Rating: R chest: 3/10, mid-low back: mild, frontal headaches: 0/10 Descriptors: Aching, sore, tight Aggravating: Movement, deep breathing Relieving: None, states recent pain medications only helped slightly Interference with Function: Somewhat Opioid Requirements Past 24h opioid requirements: (03/29-03/30, [id number]) None Total 24h OME use: 0 OME Symptom Assessment: Nausea: a little Vomiting: none Shortness of breath: none--currently on 6L with non-productive cough Difficulty Sleeping: somewhat--2/2 pain Information obtained from: chart review, interview of patient, and discussion with primary team __ OBJECTIVE: Lab Results Component Value Date WBC 10.2 03/30/2025 HGB 12.8 03/30/2025 HCT 40.0 03/30/2025 MCV 98 03/30/2025 PLT 201 03/30/2025 Lab Results Component Value Date GLUCOSE 167 (H) 03/30/2025 CALCIUM 9.0 03/30/2025 NA 138 03/30/2025 K 3.1 (L) 03/30/2025 CO2 32 03/30/2025 CL 98 03/30/2025 BUN 15 03/30/2025 CREATININE 0.42 (L) 03/30/2025 Lab Results Component Value Date ALT 8 03/22/2025 AST 9 03/22/2025 ALKPHOS 70 03/22/2025 BILITOT 0.5 03/22/2025 Estimated Creatinine Clearance: 125 mL/min (A) (by C-G formula based on SCr of 0.42 mg/dL (L)). Scheduled medications Scheduled Medications[1] Continuous medications Continuous Medications[2] PRN medications dextrose, 12.5 g, q15 min PRN dextrose, 25 g, q15 min PRN glucagon, 1 mg, q15 min PRN glucagon, 1 mg, q15 min PRN ipratropium-albuteroL, 3 mL, q4h PRN ondansetron, 4 mg, q8h PRN Or ondansetron, 4 mg, q8h PRN oxygen, , Continuous PRN - O2/gases phenyleph-min oil-petrolatum, , 4x daily PRN prochlorperazine, 10 mg, q6h PRN tiZANidine, 4 mg, Nightly PRN PHYSICAL EXAMINATION: Vital Signs: Vital signs reviewed Visit Vitals BP 149/81 (BP Location: Left arm, Patient Position: Lying) Pulse 60 Temp 35.9 C (96.6 F) (Temporal) Resp 16 0-10 (Numeric) Pain Score: 2 Physical Exam Vitals reviewed. Constitutional: Comments: Alert, awake, ill appearing woman laying in bed. No signs of acute distress. Pleasant, cooperative, and participating in interview. HENT: Head: Comments: Normocephalic, atraumatic. Eyes: Comments: Sclera clear, EOM intact. Pulmonary: Comments: Symmetrical chest rise. Regular rate and depth of respirations. 6L NC. Non-productive cough. Abdominal: Comments: Abdomen obese, non distended, non tender. Musculoskeletal: Comments: Generalized muscle weakness and atrophy. ROMERO x4. No visible extremity edema. Skin: Comments: No lesions, rash, or abrasions present on visible skin. Skin color appropriate for ethnicity. Neurological: Comments: A&Ox4, follows commands, no apparent sensory deficits. Psychiatric: Comments: Mood and behavior appropriate. PALLIATIVE CARE ENCOUNTER: [facility] encounter: Spoke with patient at bedside. Emotional support provided. Coordination of care: medication and symptom re-evaluation Medical Decision Making/Goals of Care/Advance Care Planning: (Per Estefani Pierce CNP's, note on 03/28/25) Patient's current clinical condition, including diagnosis, prognosis, and management plan, and goals of care were discussed. Life limiting disease: lung mass, AHRF Family: Supportive father, children, sisters Performance status: Major limitations due to disease process Joys/meaning/strength: Family and [place] Understanding of health: Demonstrates some understanding of disease process, did not readily share what has been discussed Code status discussion: Discussed previously and Full code Advance Directives Existence of Advance Directives: None Decision maker: Estefani Pierce CNP, having previously discussed [place] hierarchy of legal next of kin and explained that typically adult children are surrogate decision makers. At that time pt stating that she would like her father, Ben, to be her surrogate decision maker while she thinks about completing [facility] paperwork. Signature and billing: Medical complexity was high level due to due to complexity of problems, extensive data review, and high risk of management/treatment. I spent 50 minutes in the care of this patient which included chart review, interviewing patient/family, discussion with primary team, coordination of care, and documentation. Data: Diagnostic tests and information reviewed for today's visit: Conversation with primary team, Most recent labs and imaging results, Most recent EKG, Medications Some elements copied from Estefani Pierce CNP's, note on 03/28/25, the elements have been updated and all reflect current decision making from today, 03/30/25. Plan of Care discussed with: Primary team, pt, pt's family Thank you for asking [facility] to assist with care of this patient. Recommendations will be communicated back to the consulting service by way of shared electronic medical record/secure chat/email or [id number]. We will continue to follow. Please contact us for additional questions or concerns. SIGNATURE: BERNADETTE Claudio PAGER/CONTACT: Contact information: [facility] Saturday-Saturday 8 AM-5 PM, [employer] Secure chat or pager [phone]. After hours and weekends: pager [phone] [1] albuterol, 2.5 mg, nebulization, TID apixaban, 5 mg, oral, BID atorvastatin, 40 mg, oral, Daily ezetimibe, 10 mg, oral, Daily insulin lispro, 0-5 Units, subcutaneous, q4h metoprolol tartrate, 25 mg, oral, BID pantoprazole, 40 mg, oral, Daily before breakfast pantoprazole, 40 mg, intravenous, Daily before breakfast polyethylene glycol, 17 g, oral, Daily potassium chloride CR, 20 mEq, oral, BID sacubitriL-valsartan, 1 tablet, oral, BID sodium chloride, 3 mL, nebulization, TID spironolactone, 12.5 mg, oral, Daily [2] [facility] ONCOLOGY PROGRESS NOTE Summary Statement Ms. Melissa Dubose is a 64 yo female with PMHx of of CAD s/p CABG in 2015, COPD, HTN, afib, T2DM, ICM HFimpEF (11/2024 TTE EF 50-55%) admitted for acute hypoxic respiratory failure requiring mechanical ventilation. She was transferred from outside hospital where CT chest was negative for PE, noted to have R hilar mass measuring 5x4.7cm invading into the adjacent mediastinum about the lateral aspect of the trachea narrowing the R mainstem bronchus with the proximal RUL bronchus completely occluded with mild GGOs in the medial RUL and partial atelectasis of the RLL as well. She was transferred to the MICU on 03/22 for further care but was intubated en route. Pt had increasing O2 requirements up to 100% FiO2 on the vent on 03/23 and CXR showed progressive worsening and collapse of the RUL on 03/23. EKGs from 03/24 in AM showed RBBB and c/f W[place]. Repeat EKG showed RBBB and no ST elevation or depression and trops were negative. Underwent bronchoscopy with stenting and biopsy 03/24; prelim path impression is NSCLC, final path pending. 03/25 pt was able to wean down to 40% FiO2. Pt given 60mg BID of lasix IV 03/25 d/t bilateral pleural effusions on CXR and effusion on the R side during POCUS with good urine output. Restarted Eliquis 03/25. Pt on Unasyn 03/22- for suspected underlying pna. Expect to stop after 7 total days ending 03/29. Tolerated vent weaning and was extubated 03/26 with stable respiratory status since. Continued diuresis with IV Lasix 60mg BID on 03/26 and 03/27. Overall improvement in CXR bilateral effusions so held diuresis on 03/28. Oncology consulted on 03/27 for c/f NSCLC, recommended to obtain CT chest and abd w IV contrast and MRI brain w/wo contrast. Rad onc consulted for consideration of thoracic radiation. Patient weaned to 5 L NC on 03/28 and transferred to [facility] oncology for management of new NSCLC and acute hypoxic respiratory failure. Subjective Pt awake, not complaining of SOB or pain at this time. States she did not sleep much Objective Physical Exam Constitutional: Appearance: Normal appearance. HENT: Head: Normocephalic and atraumatic. Eyes: Extraocular Movements: Extraocular movements intact. Cardiovascular: Rate and Rhythm: Normal rate and regular rhythm. Heart sounds: Normal heart sounds. Pulmonary: Breath sounds: Wheezing and rhonchi present. Comments: Diffuse rhonchi Abdominal: Palpations: Abdomen is soft. Tenderness: There is abdominal tenderness. Comments: LLQ tenderness on light and deep palpation Musculoskeletal: Cervical back: Neck supple. Right lower le+ Pitting Edema present. Left lower le+ Pitting Edema present. Neurological: Mental Status: She is alert. Cranial Nerves: Cranial nerves 2-12 are intact. Motor: Weakness present. Comments: 4/5 strength bilateral lower extremities Psychiatric: Attention and Perception: Attention and perception normal. Last Recorded Vitals Blood pressure 121/72, pulse 74, temperature 36.1 C (97 F), temperature source Temporal, resp. rate 16, height 1.778 m (5' 10 ), weight 107 kg (235 lb 0.2 oz), SpO2 96%. Intake/Output last 3 Shifts: I/O last 3 completed shifts: In: 1100 (10.3 mL/kg) [P.O.:120; IV Piggyback:980] Out: 1535 (14.4 mL/kg) [Urine:1535 (0.4 mL/kg/hr)] Weight: 106.6 kg Relevant Results Scheduled medications Scheduled Medications[1] Continuous medications Continuous Medications[2] PRN medications PRN Medications[3] Results for orders placed or performed during the hospital encounter of 03/22/25 (from the past 24 hours) POCT GLUCOSE Result Value Ref Range POCT Glucose 112 (H) 74 - 99 mg/dL POCT GLUCOSE Result Value Ref Range POCT Glucose 101 (H) 74 - 99 mg/dL POCT GLUCOSE Result Value Ref Range POCT Glucose 105 (H) 74 - 99 mg/dL CBC and Auto Differential Result Value Ref Range WBC 9.8 4.4 - 11.3 x10*3/uL nRBC 0.0 0.0 - 0.0 /100 WBCs RBC 4.24 4.00 - 5.20 x10*6/uL Hemoglobin 13.2 12.0 - 16.0 g/dL Hematocrit 41.7 36.0 - 46.0 % MCV 98 80 - 100 fL MCH 31.1 26.0 - 34.0 pg MCHC 31.7 (L) 32.0 - 36.0 g/dL RDW 12.4 11.5 - 14.5 % Platelets 205 150 - 450 x10*3/uL Neutrophils % 76.3 40.0 - 80.0 % Immature Granulocytes %, Automated 0.5 0.0 - 0.9 % Lymphocytes % 10.6 13.0 - 44.0 % Monocytes % 9.0 2.0 - 10.0 % Eosinophils % 3.2 0.0 - 6.0 % Basophils % 0.4 0.0 - 2.0 % Neutrophils Absolute 7.47 1.20 - 7.70 x10*3/uL Immature Granulocytes Absolute, Automated 0.05 0.00 - 0.70 x10*3/uL Lymphocytes Absolute 1.04 (L) 1.20 - 4.80 x10*3/uL Monocytes Absolute 0.88 0.10 - 1.00 x10*3/uL Eosinophils Absolute 0.31 0.00 - 0.70 x10*3/uL Basophils Absolute 0.04 0.00 - 0.10 x10*3/uL Magnesium Result Value Ref Range Magnesium 2.02 1.60 - 2.40 mg/dL Renal function panel Result Value Ref Range Glucose 83 74 - 99 mg/dL Sodium 138 136 - 145 mmol/L Potassium 3.6 3.5 - 5.3 mmol/L Chloride 97 (L) 98 - 107 mmol/L Bicarbonate 29 21 - 32 mmol/L Anion Gap 16 10 - 20 mmol/L Urea Nitrogen 17 6 - 23 mg/dL Creatinine 0.50 0.50 - 1.05 mg/dL eGFR >90 >60 mL/min/1.73m*2 Calcium 9.1 8.6 - 10.6 mg/dL Phosphorus 2.8 2.5 - 4.9 mg/dL Albumin 3.0 (L) 3.4 - 5.0 g/dL POCT GLUCOSE Result Value Ref Range POCT Glucose 91 74 - 99 mg/dL Electrocardiogram, 12-lead PRN ACS symptoms Result Value Ref Range Ventricular Rate 94 BPM Atrial Rate 105 BPM QRS Duration 132 ms QT Interval 392 ms QTC Calculation(Bazett) 490 ms R [place] 112 degrees T [place] 105 degrees QRS Count 15 beats Q Onset 220 ms T Offset 416 ms QTC Fredericia 455 ms POCT GLUCOSE Result Value Ref Range POCT Glucose 99 74 - 99 mg/dL POCT GLUCOSE Result Value Ref Range POCT Glucose 165 (H) 74 - 99 mg/dL Electrocardiogram, 12-lead PRN ACS symptoms Result Date: 03/29/2025 Atrial fibrillation Right bundle branch block Abnormal ECG When compared with ECG of 24-MAR-2025 08:45, Atrial fibrillation has replaced Sinus rhythm Nonspecific T wave abnormality, improved in Inferior leads Nonspecific T wave abnormality has replaced inverted T waves in Anterior leads Confirmed by Roc Ling ([id number]) on 03/29/2025 2:14:27 PM MR brain w and wo IV contrast Result Date: 03/29/2025 Interpreted By: Lupe Green, STUDY: MR BRAIN W AND WO IV CONTRAST; 03/29/2025 9:55 am INDICATION: Signs/Symptoms:new cancer staging. New right hilar mass. COMPARISON: CT head 03/21/2025. ACCESSION NUMBER(S): [id number] ORDERING CLINICIAN: BETH HAYDEN TECHNIQUE: Multiplanar, multi-sequence MRI of the brain performed before and after the administration of intravenous contrast. INTRAVENOUS CONTRAST DOSE:20 ML Dotarem. FINDINGS: VENTRICLES and EXTRA-AXIAL SPACES: No hydrocephalus.No abnormal extra-axial fluid collection. Basal cisterns are patent.Pituitary gland and sella are unremarkable. BRAIN PARENCHYMA:Parenchyma is within normal limits for age.No acute territorial infarct or hemorrhage. No mass or mass effect.No areas of abnormal enhancement. PARANASAL SINUSES/MASTOIDS: Mild mucosal thickening in the left sphenoid and maxillary sinuses.Mild opacification of bilateral mastoid air cells. OSSEOUS STRUCTURES: No suspicious osseous lesions. OTHER: None. No acute intracranial abnormality. No evidence of intracranial metastases. I personally reviewed the images/study and I agree with the findings as stated. MACRO: None. Signed by: Lupe Green 03/29/2025 10:06 AM Dictation workstation: [id number] CT chest abdomen pelvis w IV contrast Result Date: 03/28/2025 Interpreted By: Francis Ratliff, STUDY: CT CHEST ABDOMEN PELVIS W IV CONTRAST; 03/28/2025 12:12 pm INDICATION: Signs/Symptoms:IV Staging. COMPARISON: Outside chest CT 03/21/2025. ACCESSION NUMBER(S): [id number] ORDERING CLINICIAN: NUNO GUILLEN TECHNIQUE: CT of the chest, abdomen, and pelvis was performed. Contiguous axial images were obtained at 3 mm slice thickness through the chest, abdomen and pelvis. Coronal and sagittal reconstructions at 3 mm slice thickness were performed. 75 ML of Omnipaque 350 was administered intravenously without immediate complication. FINDINGS: CHEST: LUNG/PLEURA/LARGE AIRWAYS: There is a large confluence right hilar mass measuring 7.7 x 5.4 cm in axial dimensions with complete collapse of the right upper lobe. Interval placement of a right bronchial stent with resolution of the narrowing of the bronchial lumen. The mass appears to extend contiguously into the mediastinum with extension into the posterior aspect of the superior vena cava causing partial occlusion. The mass appears to encase the right upper lobe pulmonary artery and has loss of fat planes with right main pulmonary artery. There is also loss of fat planes with the esophagus and focally the ascending aorta proximal to the arch. There is a moderate size right pleural effusion with the adjacent right lower lobe atelectasis. There is also atelectasis in the left lower lobe and lingula. No additional pulmonary nodules or consolidation is seen. Trachea in the left main bronchus are patent. VESSELS: Ascending aorta is normal in caliber. Main pulmonary artery is dilated measuring up to 3.8 cm. There is encasement of the right upper lobe pulmonary arterial branch and abutment of the right main pulmonary artery with the right hilar mass. Moderate atherosclerotic changes are noted of the aorta and branching vessels. Severe coronary artery calcifications are present. HEART: Heart is normal in size. Pericardial effusion. MEDIASTINUM AND VASHTI: The right hilar mass is inseparable from the right paratracheal lymph nodes. A discrete necrotic right paratracheal el mass measures 2.1 x 2.2 cm. An AP window node measures 1.1 x 1.1 cm. A subcarinal node measures 2.1 x 1.7 cm. Another subcarinal node measures 2.1 x 1.5 cm. No left hilar lymphadenopathy is noted. An enlarged right supraclavicular lymph node measures 2.0 x 1.4 cm. There is a prominent left supraclavicular lymph node measuring a proximally 1.5 x 1.0 cm (series 2, image 8). No axillary lymphadenopathy. There is a focal loss of fat plane of the esophagus with the right hilar mass extending into the mediastinum without evidence of esophageal obstruction. CHEST WALL AND LOWER NECK: Postsurgical changes of median sternotomy are noted. There is a 9 x 8 mm soft tissue nodule in the left anterior chest (series 2, image 18). There is another 4 mm punctate nodule in the right anterior chest wall (series 2, image 67). There is a large hypodense right thyroid nodule measuring 2.6 x 2.2 cm. ABDOMEN: LIVER: There is no focal liver lesion. BILE DUCTS: No intra or extrahepatic bile duct dilatation. GALLBLADDER: Gallbladder is surgically absent. PANCREAS: The pancreas appears unremarkable without evidence of ductal dilatation or masses. SPLEEN: The spleen is normal in size without focal lesions. ADRENAL GLANDS: There is a left adrenal 2.1 x 1.9 cm nodule which is indeterminate. No right adrenal nodule. KIDNEYS AND URETERS: The kidneys are normal in size and enhance symmetrically. There is a left kidney lower pole 1.1 cm calculus (1 1 3 3 HU). There is also 4 mm interpolar caliceal calculus. No right renal calculi. No hydroureteronephrosis. PELVIS: BLADDER: Urinary bladder is partially distended with a Plaza catheter in the lumen. REPRODUCTIVE ORGANS: No pelvic mass. BOWEL: Stomach and duodenum are within normal limits. A duodenal diverticulum is noted. Small and large bowel loops are normal in caliber. Scattered colonic diverticulosis is noted. Normal appendix. VESSELS: Severe atherosclerotic changes in the abdominal aorta and its branches. No aortic aneurysm. IVC is within normal limits. Portal vein, splenic vein and SMV are patent. PERITONEUM/RETROPERITONEUM/LYMPH NODES: There is a left anterior perihepatic 1.7 x 9 mm hypodense lesion along the capsule of the liver (series 2, image 84). No fluid collection in the abdomen or pelvis. There few scattered mildly prominent portacaval and peripancreatic nodes which are nonspecific. A prominent aortocaval 8 x 7 mm is also noted. No significant pelvic or inguinal lymphadenopathy. BONE AND SOFT TISSUE: Postoperative changes in the spine with the intact hardware. Degenerative changes noted in the thoracolumbar spine. No suspicious osseous lesions. Small fat containing umbilical hernia. No soft tissue masses in the abdominal wall. CHEST: 1. Large right hilar mass with contiguous extension into the mediastinum and intraluminal extension into the posterior aspect of the SVC with associated mediastinal and bilateral supraclavicular lymphadenopathy and right upper lobe collapse consistent with biopsy-proven lung malignancy with metastatic lymphadenopathy. Loss of fat planes with the esophagus and ascending aorta as described above. 2. Interval placement of a right bronchial stent with resolution of the bronchial narrowing. 3. Moderate right pleural effusion with the adjacent lung atelectasis. 4. Tiny soft tissue nodules in the right and left anterior chest wall which are nonspecific. Metastatic disease can not be excluded. ABDOMEN-PELVIS: 1. Left adrenal 2 cm nodule and hypodense lesion in the left anterior perihepatic space abutting the capsule which are indeterminate. Metastasis can not be excluded. 2. Prominent portacaval and aortocaval lymph nodes which are indeterminate. Attention at follow-up is recommended. 3. Left nephrolithiasis. MACRO: None Signed by: Francis Ratliff 03/28/2025 6:51 PM Dictation workstation: [id number] XR chest 1 view Result Date: 03/28/2025 Interpreted By: Shantanu Hui, STUDY: XR CHEST 1 VIEW; 03/28/2025 8:39 am INDICATION: Signs/Symptoms:weaning airvo, assesss pneumonia. COMPARISON: Chest radiograph 03/26/[address] 03/21/2025. ACCESSION NUMBER(S): [id number] ORDERING CLINICIAN: NUNO GUILLEN FINDINGS: AP radiograph of the chest. Interval removal of endotracheal and enteric tubes. Status post prior median sternotomy with intact sternal cerclage wires. CARDIOMEDIASTINAL SILHOUETTE: The cardiomediastinal silhouette is stable in size and configuration. Aortic knob calcification. There is similar prominence of right upper mediastinum, correlating with mediastinal mass on CT scan 03/21/2025. LUNGS: Better inspiratory effort on present examination resulting in improvement of bronchovascular crowding. There is improved but residual mild bibasilar atelectasis. Persistent right apical opacity, which likely correlate with right upper lobe atelectasis. There is no sizable pleural effusion or pneumothorax ABDOMEN: No remarkable upper abdominal findings. BONES: No acute osseous abnormality. Partially visualized changes of ACDF within cervical spine. 1. Interval improvement in bibasilar lung aeration with residual mild atelectasis. 2. Persistent right apical opacity, which likely correlates with postobstructive right upper lobe atelectasis; mediastinal mass better assessed on CT scan 03/21/2025. Signed by: Shantanu Hui 03/28/2025 9:48 AM Dictation workstation: [id number] Assessment/Plan Ms. Melissa Dubose is a 64 yo female with PMHx of of CAD s/p CABG in 2015, COPD, HTN, afib, T2DM, ICM HFimpEF (11/2024 TTE EF 50-55%) on hospital day 7 admitted for acute hypoxic respiratory failure requiring mechanical ventilation. She originally presented to [facility] 03/21 for 1 week of progressive SOB and R sided chest pain for several months. Noted to have R hilar mass on CT chest measuring 5x4.7 cm and invading into the adjacent mediastinum with R mainstem bronchus narrowing and complete occlusion of the proximal RUL bronchus. Intubated en route to the MICU 03/22 due to increasing O2 requirements. Extubated 03/26 with stable respiratory status since. MICU course significant for bronchoscopy 03/24 with stent of proximal R mainstem bronchus and biopsy with prelim path report of NSCLC. Currently being managed by [facility] oncology for acute hypoxic resp failure and NSCLC pending final path and staging. Acute hypoxic respiratory failure C/f aspiration PNA Pt states she is not SOB or on home O2 at baseline. Currently afebrile, VSS. Extubated to HFNC 03/26 and weaned to 4 L NC 03/28. Resp cx growing rare mixed gram positive and gram negative organisms. BCx NGTD. CT chest 03/21 with 5x4.7cm R hilar mass invading into the adjacent mediastinum causing compression of the R mainstem bronchus and proximal RUL bronchus. CXR 03/23 showing interval worsening and collapse of the RUL. S/p bronchoscopy with stent and biopsy 03/24. Likely 2/2 to compression from extensive R hilar mass although pneumonia incl aspiration PNA is a possibility PLAN: On Unasyn day 7 of 7 Cef and azithro dc'd Albuterol PRN Advanced to regular diet New right hilar mass s/p biopsy, prelim path NSCLC R mainstem bronchus narrowing s/p stent CT chest 03/21 with 5x4.7cm R hilar mass invading into the adjacent mediastinum causing compression of the R mainstem bronchus and proximal RUL bronchus. CXR 03/23 showing interval worsening and collapse of the RUL. S/p bronchoscopy with stent and biopsy 03/24. Rad onc consulted. Supportive onc consulted, recs below. PLAN: Prelim path showing adenocarcinoma Rad onc suggesting adrenal biopsy, follow up Follow up on MRI brain Outpatient NGS, PDL1 % Zofran 4 mg q8h PRN for nausea, Compazine 10 mg IV q6h PRN second line 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 Patient denies orthopnea, with 2+ pitting edema bilaterally; per daughter this is a significant improvement from past volume status. Echo 03/22 showing no regional left ventricular wall motion abnormalities, normal LV cavity size, no LVH, mildly increased septal wall thickness. PLAN: Monitor volume status Continue Entresto HTN PLAN: Continue amlodipine Continue metoprolol CAD s/p CABG PLAN: Continue ezetimibe Continue atorvastatin Afib PLAN: Continue metoprolol Continue Eliquis DM PLAN: Cont SSI #1, lispro, 0-5 Units, subcutaneous, q4h GERD PLAN: Cont pantoprazole Access R PIV Fluids Caution with HF Electrolytes Mg>2 K>4 Nutrition Dietary Orders (From admission, onward) Start Ordered 03/29/25 142 Adult diet Regular; Thin 0 Diet effective now Question Answer Comment Diet type Regular Fluid consistency Thin 0 03/29/25 1429 03/22/25 06 May Participate in Room Service With Assistance ( ROOM SERVICE MAY PARTICIPATE WITH ASSISTANCE) Once Question: . Answer: Yes 03/22/25624 DVT PPx Eliquis GI PPx Pantoprazole Bowel regimen Miralax Pain Acetaminophen injection 1000 mg q6h Antimicrobials ampicillin-sulbactam - 3 gram/100 mL Code status Full Code, confirmed on floor admission ACP docs, surrogate decision maker Surrogate decision maker: Ben Funez Mobile Relation: Father Primary Emergency Contact Primary Emergency Contact: Ben Funez Mobile Relation: Father Secondary Emergency Contact Preferred language [place] Supervisor Plating And Point Assembly needed? No DISPO Pending Esme Moore MD Internal Medicine PGY-1 I saw and evaluated the patient. I personally obtained the bcak and critical portions of the history and physical exam or was physically present for back and critical portions performed by the resident/fellow. I reviewed the resident/fellow's documentation and discussed the patient with the resident/fellow. I agree with the resident/fellow's medical decision making as documented in the note. Lissette Maharaj MD [1] albuterol, 2.5 mg, nebulization, q6h ampicillin-sulbactam, 3 g, intravenous, q6h apixaban, 5 mg, oral, BID atorvastatin, 40 mg, oral, Daily ezetimibe, 10 mg, oral, Daily insulin lispro, 0-5 Units, subcutaneous, q4h metoprolol tartrate, 25 mg, oral, BID pantoprazole, 40 mg, oral, Daily before breakfast pantoprazole, 40 mg, intravenous, Daily before breakfast polyethylene glycol, 17 g, oral, Daily sacubitriL-valsartan, 1 tablet, oral, BID sodium chloride, 3 mL, nebulization, q6h FUNMI spironolactone, 12.5 mg, oral, Daily [2] [3] PRN medications: dextrose, dextrose, glucagon, glucagon, ipratropium-albuteroL, ondansetron OR ondansetron, oxygen, phenyleph-min oil-petrolatum, prochlorperazine, tiZANidine Speech-Language Pathology Adult Inpatient Swallow Treatment Patient Name: Melissa Dubose Today's Date: 03/29/2025 Start Time: 1335 Stop Time: 1350 Time Calculation (min): 15 Impression: Swallow re-assessment completed. Pt awake/alert and upright in bed for session w/ spouse at bedside; no longer requiring Airvo. A&Ox4. Consistently cooperative/able to follow commands and responded appropriately to conversation/questions by AIRFIELD MANAGER. Adequate volitional cough prior to administration of PO trials. Trials of single/consecutive sips water via straw, 3 oz protocol via straw, purees, and regular solids were given. Normal oral management of all trials. No overt clinical s/s aspiration w/ successful completion of 3 oz protocol via straw or prior/subsequent trials; no coughing or changes in respiratory status/vocal quality. Recommend initiation of Regular Solids & Thin Liquids. Ensure safe swallowing guidelines (listed below) are followed during all oral intake. No further AIRFIELD MANAGER services indicated; will sign off/complete order. If pt presents with any changes to mental, medical, or respiratory status, please make NPO and alert AIRFIELD MANAGER. RN/MD aware. Recommendations: Regular Solids & Thin Liquids Upright for all PO intake Remain upright for 20-30 min after eating Small bites/sips Straws ok Slow rate of consumption Pills per pt preference AIRFIELD MANAGER to sign off If pt presents with any changes to mental, medical, or respiratory status, please make NPO and alert AIRFIELD MANAGER Goal: Pt/caregiver/family will demonstrate adequate return of knowledge re: dysphagia POC/diet recommendations/safe swallowing guidelines w/ 100% acc to effectively assist the patient in immediate safety with oral intake and swallowing. Start Date: 03/27/2025 End Date: 03/29/2025 Status: Goal Met Pt will tolerate least restrictive diet with no overt clinical s/s aspiration 100% of the time. Start Date: 03/27/2025 End Date: 03/29/2025 Status: Goal Met Plan: AIRFIELD MANAGER Services Indicated: No Discussed POC with patient and spouse AIRFIELD MANAGER - OK to Discharge Pain: 0-10 0 = No pain. Inpatient Education: Extensive education provided to patient and spouse regarding current swallow function, recommendations/results, and POC. Consultations/Referrals/Coordinati on of Services: N/A Speech-Language Pathology Therapy Communication Note Patient Name: Melissa Dubose Today's Date: 03/29/2025 Time: 935 Discipline: Speech-Language Pathology Reason: Attempt Comment: Swallow re-assessment attempted. Pt GARFIELD for MRI at this time; will re-attempt as pt available/appropriate and schedule permits. [facility] ONCOLOGY PROGRESS NOTE Summary Statement Ms. Melissa Duobse is a 64 yo female with PMHx of of CAD s/p CABG in 2015, COPD, HTN, afib, T2DM, ICM HFimpEF (11/2024 TTE EF 50-55%) admitted for acute hypoxic respiratory failure requiring mechanical ventilation. She was transferred from outside hospital where CT chest was negative for PE, noted to have R hilar mass measuring 5x4.7cm invading into the adjacent mediastinum about the lateral aspect of the trachea narrowing the R mainstem bronchus with the proximal RUL bronchus completely occluded with mild GGOs in the medial RUL and partial atelectasis of the RLL as well. She was transferred to the MICU on 03/22 for further care but was intubated en route. Pt had increasing O2 requirements up to 100% FiO2 on the vent on 03/23 and CXR showed progressive worsening and collapse of the RUL on 03/23. EKGs from 03/24 in AM showed RBBB and c/f [place]. Repeat EKG showed RBBB and no ST elevation or depression and trops were negative. Underwent bronchoscopy with stenting and biopsy 03/24; prelim path impression is NSCLC, final path pending. 03/25 pt was able to wean down to 40% FiO2. Pt given 60mg BID of lasix IV 03/25 d/t bilateral pleural effusions on CXR and effusion on the R side during POCUS with good urine output. Restarted Eliquis 03/25. Pt on Unasyn 03/22- for suspected underlying pna. Expect to stop after 7 total days ending 03/29. Tolerated vent weaning and was extubated 03/26 with stable respiratory status since. Continued diuresis with IV Lasix 60mg BID on 03/26 and 03/27. Overall improvement in CXR bilateral effusions so held diuresis on 03/28. Oncology consulted on 03/27 for c/f NSCLC, recommended to obtain CT chest and abd w IV contrast and MRI brain w/wo contrast. Rad onc consulted for consideration of thoracic radiation. Patient weaned to 5 L NC on 03/28 and transferred to [facility] oncology for management of new NSCLC and acute hypoxic respiratory failure. Subjective Pt awake, lying in bed, and responding to questions, not reporting SOB at this time. Reports headache. Endorses chills and cough. Denies subjective fevers, sputum production, hemoptysis, and orthopnea. Objective Physical Exam Constitutional: Appearance: Normal appearance. HENT: Head: Normocephalic and atraumatic. Eyes: Extraocular Movements: Extraocular movements intact. Cardiovascular: Rate and Rhythm: Normal rate and regular rhythm. Heart sounds: Normal heart sounds. Pulmonary: Breath sounds: Wheezing and rhonchi present. Comments: Diffuse rhonchi Abdominal: Palpations: Abdomen is soft. Tenderness: There is abdominal tenderness. Comments: LLQ tenderness on light and deep palpation Musculoskeletal: Cervical back: Neck supple. Right lower le+ Pitting Edema present. Left lower le+ Pitting Edema present. Neurological: Mental Status: She is alert. Cranial Nerves: Cranial nerves 2-12 are intact. Motor: Weakness present. Comments: 4/5 strength bilateral lower extremities Psychiatric: Attention and Perception: Attention and perception normal. Mood and Affect: Affect is blunt. Speech: Speech is delayed. Last Recorded Vitals Blood pressure 127/77, pulse 60, temperature 36.4 C (97.5 F), temperature source Temporal, resp. rate 18, height 1.778 m (5' 10 ), weight 107 kg (235 lb 0.2 oz), SpO2 96%. Intake/Output last 3 Shifts: I/O last 3 completed shifts: In: 896.4 (8.4 mL/kg) [I.V.:16.4 (0.2 mL/kg); IV Piggyback:880] Out: 3315 (31.1 mL/kg) [Urine:3315 (0.9 mL/kg/hr)] Weight: 106.6 kg Relevant Results Scheduled medications acetaminophen, 1,000 mg, intravenous, q6h albuterol, 2.5 mg, nebulization, q6h ampicillin-sulbactam, 3 g, intravenous, q6h apixaban, 5 mg, oral, BID atorvastatin, 40 mg, oral, Daily ezetimibe, 10 mg, oral, Daily insulin lispro, 0-5 Units, subcutaneous, q4h metoprolol tartrate, 25 mg, oral, BID pantoprazole, 40 mg, oral, Daily before breakfast [START ON 03/29/2025] pantoprazole, 40 mg, intravenous, Daily before breakfast polyethylene glycol, 17 g, oral, Daily sacubitriL-valsartan, 1 tablet, oral, BID sodium chloride, 3 mL, nebulization, q6h FUNMI Continuous medications N/a PRN medications Dextrose Glucagon Ipratropium-albuteroL Ondansetron Oxygen Results for orders placed or performed during the hospital encounter of 03/22/25 (from the past 24 hours) ANATOMIC PATHOLOGY TEST REQUESTS Result Value Ref Range Test Comment The test request has been received by the lab and will be reviewed. ANATOMIC PATHOLOGY TEST REQUESTS Result Value Ref Range Test Comment The test request has been received by the lab and will be reviewed. Magnesium Result Value Ref Range Magnesium 1.89 1.60 - 2.40 mg/dL Renal Function Panel Result Value Ref Range Glucose 129 (H) 74 - 99 mg/dL Sodium 143 136 - 145 mmol/L Potassium 3.6 3.5 - 5.3 mmol/L Chloride 97 (L) 98 - 107 mmol/L Bicarbonate 35 (H) 21 - 32 mmol/L Anion Gap 15 10 - 20 mmol/L Urea Nitrogen 18 6 - 23 mg/dL Creatinine 0.61 0.50 - 1.05 mg/dL eGFR >90 >60 mL/min/1.73m*2 Calcium 9.3 8.6 - 10.6 mg/dL Phosphorus 3.0 2.5 - 4.9 mg/dL Albumin 3.2 (L) 3.4 - 5.0 g/dL CBC Result Value Ref Range WBC 10.3 4.4 - 11.3 x10*3/uL nRBC 0.0 0.0 - 0.0 /100 WBCs RBC 4.20 4.00 - 5.20 x10*6/uL Hemoglobin 13.3 12.0 - 16.0 g/dL Hematocrit 39.8 36.0 - 46.0 % MCV 95 80 - 100 fL MCH 31.7 26.0 - 34.0 pg MCHC 33.4 32.0 - 36.0 g/dL RDW 13.0 11.5 - 14.5 % Platelets 202 150 - 450 x10*3/uL POCT GLUCOSE Result Value Ref Range POCT Glucose 124 (H) 74 - 99 mg/dL POCT GLUCOSE Result Value Ref Range POCT Glucose 119 (H) 74 - 99 mg/dL POCT GLUCOSE Result Value Ref Range POCT Glucose 107 (H) 74 - 99 mg/dL CBC and Auto Differential Result Value Ref Range WBC 9.5 4.4 - 11.3 x10*3/uL nRBC 0.0 0.0 - 0.0 /100 WBCs RBC 4.13 4.00 - 5.20 x10*6/uL Hemoglobin 13.0 12.0 - 16.0 g/dL Hematocrit 39.6 36.0 - 46.0 % MCV 96 80 - 100 fL MCH 31.5 26.0 - 34.0 pg MCHC 32.8 32.0 - 36.0 g/dL RDW 12.9 11.5 - 14.5 % Platelets 200 150 - 450 x10*3/uL Neutrophils % 76.2 40.0 - 80.0 % Immature Granulocytes %, Automated 0.5 0.0 - 0.9 % Lymphocytes % 11.3 13.0 - 44.0 % Monocytes % 8.6 2.0 - 10.0 % Eosinophils % 3.1 0.0 - 6.0 % Basophils % 0.3 0.0 - 2.0 % Neutrophils Absolute 7.22 1.20 - 7.70 x10*3/uL Immature Granulocytes Absolute, Automated 0.05 0.00 - 0.70 x10*3/uL Lymphocytes Absolute 1.07 (L) 1.20 - 4.80 x10*3/uL Monocytes Absolute 0.82 0.10 - 1.00 x10*3/uL Eosinophils Absolute 0.29 0.00 - 0.70 x10*3/uL Basophils Absolute 0.03 0.00 - 0.10 x10*3/uL Magnesium Result Value Ref Range Magnesium 2.20 1.60 - 2.40 mg/dL Renal function panel Result Value Ref Range Glucose 100 (H) 74 - 99 mg/dL Sodium 141 136 - 145 mmol/L Potassium 3.8 3.5 - 5.3 mmol/L Chloride 97 (L) 98 - 107 mmol/L Bicarbonate 34 (H) 21 - 32 mmol/L Anion Gap 14 10 - 20 mmol/L Urea Nitrogen 21 6 - 23 mg/dL Creatinine 0.59 0.50 - 1.05 mg/dL eGFR >90 >60 mL/min/1.73m*2 Calcium 9.1 8.6 - 10.6 mg/dL Phosphorus 3.1 2.5 - 4.9 mg/dL Albumin 3.1 (L) 3.4 - 5.0 g/dL POCT GLUCOSE Result Value Ref Range POCT Glucose 106 (H) 74 - 99 mg/dL POCT GLUCOSE Result Value Ref Range POCT Glucose 116 (H) 74 - 99 mg/dL XR chest 1 view Result Date: 03/28/2025 Interpreted By: Shantanu Hui, STUDY: XR CHEST 1 VIEW; 03/28/2025 8:39 am INDICATION: Signs/Symptoms:weaning airvo, assesss pneumonia. COMPARISON: Chest radiograph 03/26/[address] 03/21/2025. ACCESSION NUMBER(S): [id number] ORDERING CLINICIAN: NUNO GUILLEN FINDINGS: AP radiograph of the chest. Interval removal of endotracheal and enteric tubes. Status post prior median sternotomy with intact sternal cerclage wires. CARDIOMEDIASTINAL SILHOUETTE: The cardiomediastinal silhouette is stable in size and configuration. Aortic knob calcification. There is similar prominence of right upper mediastinum, correlating with mediastinal mass on CT scan 03/21/2025. LUNGS: Better inspiratory effort on present examination resulting in improvement of bronchovascular crowding. There is improved but residual mild bibasilar atelectasis. Persistent right apical opacity, which likely correlate with right upper lobe atelectasis. There is no sizable pleural effusion or pneumothorax ABDOMEN: No remarkable upper abdominal findings. BONES: No acute osseous abnormality. Partially visualized changes of ACDF within cervical spine. 1. Interval improvement in bibasilar lung aeration with residual mild atelectasis. 2. Persistent right apical opacity, which likely correlates with postobstructive right upper lobe atelectasis; mediastinal mass better assessed on CT scan 03/21/2025. Signed by: Shantanu Hui 03/28/2025 9:48 AM Dictation workstation: [id number] Assessment/Plan Ms. Melissa Dubose is a 64 yo female with PMHx of of CAD s/p CABG in 2016, COPD, HTN, afib, T2DM, ICM HFimpEF (11/2024 TTE EF 50-55%) on hospital day 6 admitted for acute hypoxic respiratory failure requiring mechanical ventilation. She originally presented to [facility] 03/21 for 1 week of progressive SOB and R sided chest pain for several months. Noted to have R hilar mass on CT chest measuring 5x4.7 cm and invading into the adjacent mediastinum with R mainstem bronchus narrowing and complete occlusion of the proximal RUL bronchus. Intubated en route to the MICU 03/22 due to increasing O2 requirements. Extubated 03/26 with stable respiratory status since. MICU course significant for bronchoscopy 03/24 with stent of proximal R mainstem bronchus and biopsy with prelim path report of NSCLC. Currently being managed by [facility] oncology for acute hypoxic resp failure and NSCLC pending final path and staging. Acute hypoxic respiratory failure C/f aspiration PNA Pt states she is not SOB or on home O2 at baseline. Currently afebrile, VSS. Extubated to HFNC 03/26 and weaned to 4 L NC 03/28. Resp cx growing rare mixed gram positive and gram negative organisms. BCx NGTD. CT chest 03/21 with 5x4.7cm R hilar mass invading into the adjacent mediastinum causing compression of the R mainstem bronchus and proximal RUL bronchus. CXR 03/23 showing interval worsening and collapse of the RUL. S/p bronchoscopy with stent and biopsy 03/24. Likely 2/2 to compression from extensive R hilar mass although pneumonia incl aspiration PNA is a possibility PLAN: On Unasyn day 6 of 7 Cef and azithro dc'd Albuterol PRN NPO with ice chips and small sips, speech to re-eval New right hilar mass s/p biopsy, prelim path NSCLC R mainstem bronchus narrowing s/p stent CT chest 03/21 with 5x4.7cm R hilar mass invading into the adjacent mediastinum causing compression of the R mainstem bronchus and proximal RUL bronchus. CXR 03/23 showing interval worsening and collapse of the RUL. S/p bronchoscopy with stent and biopsy 03/24. Rad onc consulted. Supportive onc consulted, recs below. PLAN: Follow up on final path result Follow up on rad onc consult Follow up on CT CAP Follow up on MRI brain Outpatient NGS, PDL1 % Zofran 4 mg q8h PRN for nausea, Compazine 10 mg IV q6h PRN second line 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 Patient denies orthopnea, with 2+ pitting edema bilaterally; per daughter this is a significant improvement from past volume status. Echo 03/22 showing no regional left ventricular wall motion abnormalities, normal LV cavity size, no LVH, mildly increased septal wall thickness. PLAN: Monitor volume status Continue Entresto HTN PLAN: Continue amlodipine Continue metoprolol CAD s/p CABG PLAN: Continue ezetimibe Continue atorvastatin Afib PLAN: Continue metoprolol Continue Eliquis DM PLAN: Cont SSI #1, lispro, 0-5 Units, subcutaneous, q4h GERD PLAN: Cont pantoprazole Access R PIV Fluids Caution with HF Electrolytes Mg>2 K>4 Nutrition Dietary Orders (From admission, onward) Start Ordered 03/29/25 0001 NPO Diet Except: Other (specify); Additional Details: Clear liquids until 0500. May have clears up to 2 hours prior to procedure if exact time is known.; Effective midnight Diet effective midnight Question Answer Comment Except: Other (specify) Additional Details Clear liquids until 0500. May have clears up to 2 hours prior to procedure if exact time is known. 03/28/25 1030 03/28/25 1319 NPO Diet Except: Ice chips, Sips with meds, Other (specify); Additional Details: sips of water allowed; Effective now Diet effective now Question Answer Comment Except: Ice chips Except: Sips with meds Except: Other (specify) Additional Details sips of water allowed 03/28/25 1318 03/22/25 0626 May Participate in Room Service With Assistance ( ROOM SERVICE MAY PARTICIPATE WITH ASSISTANCE) Once Question: . Answer: Yes 03/22/25624 DVT PPx Eliquis GI PPx Pantoprazole Bowel regimen Miralax Pain Acetaminophen injection 1000 mg q6h Antimicrobials ampicillin-sulbactam - 3 gram/100 mL Code status Full Code, confirmed on floor admission ACP docs, surrogate decision maker Surrogate decision maker: Ben Funez Mobile Relation: Father Primary Emergency Contact Primary Emergency Contact: Ben Funez Mobile Relation: Father Secondary Emergency Contact Preferred language [place] Supervisor Plating And Point Assembly needed? No DISPO Pending Esme Moore MD Internal Medicine PGY-1 Cosigned by Nneka Van MD at 03/28/2025 9:03 PM EDT Associated attestation - Nneka Van MD - 03/28/2025 9:03 PM EDT I saw and evaluated the patient. I personally obtained the back and critical portions of the history and physical exam or was physically present for back and critical portions performed by the resident/fellow. I reviewed the resident/fellow's documentation and discussed the patient with the resident/fellow. I agree with the resident/fellow's medical decision making as documented in the note. Speech-Language Pathology Adult Inpatient Clinical Bedside Swallow Evaluation Patient Name: Melissa Dubose Today's Date: 03/27/2025 Start Time: 1115 Stop Time: 1130 Time Calculation (min): 15 History of Present Illness: Ms. 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 She originally presented to [facility] 03/21 for 1 week of progressive shortness of breath. Also noted to have been having R sided chest pain for several months. In the ED, she was hypoxic to the 80s on RA, placed on BiPAP 90-100%, unclear IPAP and EPAP settings. She was originally treated for COPD exacerbation and pneumonia with duonebs x2, 1L NS, percocet, 1x ceftriaxone/azithro, methylpred 125mg, with minimal improvement. CT chest negative for PE, noted to have R hilar mass measuring 5x4.7cm invading into the adjacent mediastinum about the lateral aspect of the trachea narrowing the R mainstem bronchus with the proximal RUL bronchus completely occluded with mild GGOs in the medial RUL and partial atelectasis of the RLL as well. CT head negative for acute findings. Given concern for obstructive mass, case discussed with transfer center, accepted for transfer to [facility] initiated for interventional pulmonology evaluation. Prior to transfer, noted that she immediately desatted to 70% when on 100% FiO2 BiPAP settings. Given concern for worsening distress during transport, decision made to intubate. At the bedside today, patient is intubated and sedated but responds to commands. Her parents stated that they didn't know much about her medical history but that she has a heart surgery coming up. They did not know what kind of surgery or the date. There is no family history of cancer. Father is anemic. Assessment: Clinical bedside swallow evaluation completed. Pt cleared for evaluation by RN. Received awake but drowsy and upright in bed for session w/ spouse at bedside; currently requiring Airvo. A&Ox4. Oral mechanism examination WNL. Pt consistently cooperative/able to follow commands and responded appropriately to questions by AIRFIELD MANAGER though w/ delayed response time. Denies any difficulty swallowing at baseline. Weak volitional cough prior to administration of PO trials Trials of ice chips, tsp sips water, single/consecutive sips water via straw, and 3 oz protocol via straw were given. Normal oral management of all trials. Overt clinical s/s aspiration w/ successful completion of 3 oz protocol via straw characterized by immediate increased WOB and wet vocal quality. No further trials given 2/2 c/f aspiration. Pt not appropriate for initiation of PO diet at this time. Suspect dysphagia r/t current respiratory status. Recommend NPO w/ frequent aggressive oral care. Ice chips and small sips water allowed for pleasure, safe swallow stimulation, and after oral care to prevent buildup of bacteria within the oropharynx. AIRFIELD MANAGER will continue to follow w/ swallow re-assessment as pt demonstrates improvement in respiratory status, is appropriate, and schedule permits. RN/MD aware. Recommendations: NPO with frequent aggressive oral care. Ice chips and small sips water allowed for pleasure, safe swallow stimulation, and after oral care to prevent buildup of bacteria within the oropharynx AIRFIELD MANAGER will continue to follow w/ swallow re-assessment as pt demonstrates improvement in respiratory status, is appropriate, and schedule permits Goal: Pt/caregiver/family will demonstrate adequate return of knowledge re: dysphagia POC/diet recommendations/safe swallowing guidelines w/ 100% acc to effectively assist the patient in immediate safety with oral intake and swallowing. Start Date: 03/27/2025 End Date: 04/27/2025 Status: Goal Initiated this date Pt will tolerate least restrictive diet with no overt clinical s/s aspiration 100% of the time. Start Date: 03/27/2025 End Date: 04/27/2025 Status: Goal Initiated this date Plan: AIRFIELD MANAGER Services Indicated: Yes Frequency: 2x per week Discussed POC with patient and spouse AIRFIELD MANAGER - OK to Discharge Pain: 0-10 0 = No pain. Inpatient Education: Extensive education provided to patient and spouse regarding current swallow function, recommendations/results, and POC. Consultations/Referrals/Coordinati on of Services: N/A Communication Note Patient Name: Melissa Dubose Today's Date: 03/26/2025 Room: [address] [place] [address] Discipline: Physical Therapy PT Missed Visit: Yes Missed Visit Reason: (PT evaluation attempted, patient declining PT. Stating NO and not elaborating and not requesting further follow up. PT to sign off at this time, please reconsult if patient fails nursing mobility and is agreeable for participation.) 03/26/25 at 2:58 PM [facility] Revel[facility] PT Rehab Office: [phone] Melissa Dubose is a 64 y.o. female on day 4 of admission presenting with Acute hypoxic respiratory failure. Subjective No acute events overnight. Satting well overnight on FiO2 50%. Fentanyl weaning up slightly from 50mcg to 75mcg and propofol 15mcg overnight. A few soft BP measures (90s/60s) but otherwise hemodynamically stable. Successful diuresis yesterday, net -1.6L. Pt seen at bedside this AM. Appropriately arousable to tactile and vocal stimuli, however quite somnolent. Following commands. No complaints of pain at this time. Objective Last Recorded Vitals BP 124/58 Pulse 89 Temp 36.2 C (97.2 F) (Temporal) Resp 15 SpO2 94% Intake/Output last 3 Shifts: Intake/Output Summary (Last 24 hours) at 03/26/2025 0653 Last data filed at 03/26/2025 0500 Gross per 24 hour Intake 1458.7 ml Output 3125 ml Net -1666.3 ml Admission Weight Daily Weight 03/21/25 : 104 kg (229 lb 4.5 oz) Image Results XR chest 1 view Narrative: Interpreted By: Lu Betancur, STUDY: XR CHEST 1 VIEW; 03/25/2025 8:16 am INDICATION: Signs/Symptoms:intubated. COMPARISON: 03/24/2025 ACCESSION NUMBER(S): [id number] ORDERING CLINICIAN: NUNO GUILLEN FINDINGS: AP radiograph of the chest was provided. Endotracheal tube terminates 6.9 cm from the melvin. Postsurgical changes consistent with median sternotomy are seen. Enteric tube courses past the diaphragm and terminates outside the field of view. CARDIOMEDIASTINAL SILHOUETTE: Cardiomediastinal silhouette is stable in size and configuration. LUNGS: Triangular density again noted within the right apex suggestive of atelectasis. Increased markings in a bibasilar distribution, octlk-cydnyqs-odgf-left. ABDOMEN: No remarkable upper abdominal findings. BONES: No acute osseous changes. Impression: 1. Unchanged appearance of the right upper lobe opacity concerning for atelectasis. 2. Bibasilar atelectasis/edema. MACRO: None Signed by: Lu Betancur 03/25/2025 11:09 AM Dictation workstation: [id number] Physical Exam Constitutional: General: She is not in acute distress. HENT: Head: Normocephalic and atraumatic. Cardiovascular: Rate and Rhythm: Normal rate and regular rhythm. Pulmonary: Breath sounds: Rhonchi present. Abdominal: General: Abdomen is flat. There is no distension. Palpations: Abdomen is soft. Tenderness: There is no abdominal tenderness. Musculoskeletal: Right lower leg: No edema. Left lower leg: No edema. Skin: Coloration: Skin is not jaundiced. Findings: No erythema, lesion or rash. Neurological: Comments: Following command appropriately (thumbs up, wiggles toes). Somnolent with appropriate arousal to vocal and tactile stimuli Relevant Results Results for orders placed or performed during the hospital encounter of 03/22/25 (from the past 24 hours) POCT GLUCOSE Result Value Ref Range POCT Glucose 162 (H) 74 - 99 mg/dL POCT GLUCOSE Result Value Ref Range POCT Glucose 198 (H) 74 - 99 mg/dL Magnesium Result Value Ref Range Magnesium 1.76 1.60 - 2.40 mg/dL Renal Function Panel Result Value Ref Range Glucose 200 (H) 74 - 99 mg/dL Sodium 139 136 - 145 mmol/L Potassium 3.5 3.5 - 5.3 mmol/L Chloride 104 98 - 107 mmol/L Bicarbonate 25 21 - 32 mmol/L Anion Gap 14 10 - 20 mmol/L Urea Nitrogen 17 6 - 23 mg/dL Creatinine 0.65 0.50 - 1.05 mg/dL eGFR >90 >60 mL/min/1.73m*2 Calcium 8.9 8.6 - 10.6 mg/dL Phosphorus 2.6 2.5 - 4.9 mg/dL Albumin 2.8 (L) 3.4 - 5.0 g/dL POCT GLUCOSE Result Value Ref Range POCT Glucose 188 (H) 74 - 99 mg/dL POCT GLUCOSE Result Value Ref Range POCT Glucose 192 (H) 74 - 99 mg/dL POCT GLUCOSE Result Value Ref Range POCT Glucose 153 (H) 74 - 99 mg/dL CBC and Auto Differential Result Value Ref Range WBC 10.0 4.4 - 11.3 x10*3/uL nRBC 0.0 0.0 - 0.0 /100 WBCs RBC 3.90 (L) 4.00 - 5.20 x10*6/uL Hemoglobin 12.0 12.0 - 16.0 g/dL Hematocrit 36.5 36.0 - 46.0 % MCV 94 80 - 100 fL MCH 30.8 26.0 - 34.0 pg MCHC 32.9 32.0 - 36.0 g/dL RDW 13.3 11.5 - 14.5 % Platelets 183 150 - 450 x10*3/uL Neutrophils % 81.8 40.0 - 80.0 % Immature Granulocytes %, Automated 0.8 0.0 - 0.9 % Lymphocytes % 8.1 13.0 - 44.0 % Monocytes % 6.9 2.0 - 10.0 % Eosinophils % 2.1 0.0 - 6.0 % Basophils % 0.3 0.0 - 2.0 % Neutrophils Absolute 8.13 (H) 1.20 - 7.70 x10*3/uL Immature Granulocytes Absolute, Automated 0.08 0.00 - 0.70 x10*3/uL Lymphocytes Absolute 0.81 (L) 1.20 - 4.80 x10*3/uL Monocytes Absolute 0.69 0.10 - 1.00 x10*3/uL Eosinophils Absolute 0.21 0.00 - 0.70 x10*3/uL Basophils Absolute 0.03 0.00 - 0.10 x10*3/uL Magnesium Result Value Ref Range Magnesium 1.86 1.60 - 2.40 mg/dL Renal function panel Result Value Ref Range Glucose 183 (H) 74 - 99 mg/dL Sodium 140 136 - 145 mmol/L Potassium 4.3 3.5 - 5.3 mmol/L Chloride 103 98 - 107 mmol/L Bicarbonate 28 21 - 32 mmol/L Anion Gap 13 10 - 20 mmol/L Urea Nitrogen 18 6 - 23 mg/dL Creatinine 0.70 0.50 - 1.05 mg/dL eGFR >90 >60 mL/min/1.73m*2 Calcium 9.2 8.6 - 10.6 mg/dL Phosphorus 2.9 2.5 - 4.9 mg/dL Albumin 2.9 (L) 3.4 - 5.0 g/dL POCT GLUCOSE Result Value Ref Range POCT Glucose 186 (H) 74 - 99 mg/dL Assessment & Plan Acute hypoxic respiratory failure Assessment: Melissa Dubose is a 64 y.o. 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 Updates for 03/26/25 : - Good urine output after lasix yesterday. Repeat CXR this AM pending read - Continue IV lasix 60mg BID for diuresis given overall net positive status during hospitalization - Wean fentanyl and propofol after starting precedex this AM. Attempt SBT today - Repeat VBG pH 7.43 - Follow cytology from IP biopsy and stent Plan: NEUROLOGY/PSYCH: #Sedated status Was intubated and sedated on ketamine during transport. Ketamine since been discontinued. ETT and OG placement confirmed on imaging. ::on fentanyl and prop - Transition to precedex and wean fentanyl and propofol CARDIOVASCULAR: #HFimpEF #HTN #CAD s/p CABG 2016 #A-fib :: 11/2024 TTE EF 50-55%. 03/22 TTE EF 70-75% :: Home meds: ezetimibe 10, atorvastatin 40, metoprolol succ 100 QD, entresto 97-103mg, amlodipine 10mg, canagliflozin 100mg, aldactone 25, eliquis 5 mg BID ::s/p cardioversion 01/2024 for A-fib :: CHADs-VASC 5 :: c/f for RBBB and potential STEMI on EKG this AM. Repeat EKG shows RBBB but doesn't show ST elevation or depression. Trops negative ::held home lasix, amlodipine, canagliflozin, aldactone, and entresto 97-103mg BID given possible CLARY on admission ::restarted eliquis 03/25 - CXR 03/26 AM read pending - IV Lasix 60mg BID today for continued diuresis - Repeat RFP in PM after diuresis - c/w ezetimibe 10 and atorvastatin 40 - Started metoprolol tartrate 12.5 mg BID on 03/22 - holding d/t soft-low Bps - consider restarting home HTN and GDMT meds given stable Cr with apparent resolution of CLARY PULMONARY: #Acute hypoxic respiratory failure :: s/p ceftriaxone/azithro (03/21) :: CT chest with 5x4.7cm R hilar mass invading into the adjacent mediastinum causing compression of the R mainstem bronchus and proximal RUL bronchus ::Likely 2/2 to compression from extensive R hilar mass although pneumonia is a possibility ::TTE done but did not include bubble study. May need to reconsider getting another one. ::resp cx growing rare mixed gram positive and gram negative organisms. BC NGTD ::CXR 03/23 showed interval worsening and collapse of the RUL. Probably the reason she needed increasing O2 requirements on 03/23 ::IP performed biopsy and stent on 03/24 ::AC/VC RR 14/TV 400/FiO2 50%/PEEP 5 ::discontinued azithromycin 03/23 - SBT trial today - Await cytology results from biopsy - Unasyn (03/22-*) for potential pna coverage (day 01/13) - duonebs q4h PRN - 3% saline nebs for bronch-pulm hygiene RENAL/GENITOURINARY: #?CLARY - resolved :: Admission Cr 1.18, no baseline in system. Cr has been between 0.6-0.8. :: UA 03/22 negative :: pt having decreased urine output since 03/23 :: increased urine output after lasix trial yesterday - RFP daily - strict I/Os GASTROENTEROLOGY: #GERD - continue PPI - miralax daily ENDOCRINOLOGY: #T2DM :: Home canagliflozin 100mg, metformin 500 BID, januvia 100 mg daily - holding home meds - A1C for baseline - SSI #1, POC glucose q4h HEMATOLOGY: #R hilar mass - Picture concerning for malignancy as above - Follow cytology - For staging (if malignant), will likely need CT CAP w/ contrast MUSCULOSKELETAL/SKIN: - holding home tizanidine INFECTIOUS DISEASE: #Rule-out pneumonia :: Sputum cx shows rare mixed gram positive and gram negative bacteria :: Bcx x2 show NGTD ::azithromycin discontinued on 03/23 - continue unasyn (day 01/13) CHECKLIST: F: caution with HF E: Mg>2 K>4 N: tube feeds A: PIV GTT: none Bowel/PPI: Abx: unasyn (day 01/13) DVT: eliquis Code Status: Full code NOK/POA: Ben Funez (Father) Dick Courtney MD Cosigned by Nuno Guillen MD at 03/27/2025 9:33 AM EDT Associated attestation - Nuno Acosta MD - 03/27/2025 9:33 AM EDT Attestation signed by Nuno Guillen MD at 03/26/2025 8:59 AM Statement of Acuity: This patient was critically ill and required continued critical care treatment. I have personally reviewed and evaluated the most recent data and results, examined the patient, and formulated the plan of care as outlined above. Critical care time is spent at the bedside and/or the immediate area and has included, but is not limited to, the review of diagnostic tests, labs, radiographs, serial assessments of hemodynamics, respiratory status, ventilatory management, and family updates. Teaching and any separately billable procedures are not included in the time calculation. Critical care time = 38 minutes ACUTE HYPOXIC RESP FAILURE SEC TO RT UPPER LOBE COLLAPSE s/p BECCA endobronchial stent Possible post obstructive pna Rt hilar mass Needing mechanical ventilation FiO2 down to 50% after stent placement Extubated 03/26/25 Increased oxygen needs on HFNC 50L 60% Plan Staging and BECCA stent to be placed yesterday Continue Unasyn to cover post obstructive pna 7 days total Follow up cytology/histopath/cultures from bronch Extubated Routine ICU care 03/25/25 1540 Discharge Planning Living Arrangements Children (Pt is KOST[place]. Information is obtained from pt's fatherBen.) Support Systems Children;Parent Assistance Needed Independent prior to ths admission Type of Residence Private residence Number of Stairs to Enter Residence 2 Number of Stairs Within Residence 10 Do you have animals or pets at home? Yes Type of Animals or Pets a dog Who is requesting discharge planning? Provider Home or Post Acute Services Other (Comment) Expected Discharge Disposition Home Does the patient need discharge transport arranged? Yes [facility] coordination needed? Yes Social Work Note ICU Treatment Plan : Admitted to the MICU for acute hypoxic respiratory failure requiring mechanical ventilation iso large obstructive R hilar mass. - Additional information : Currently intubated and sedated. - Support : Ben Meyer is listed primary contact. - Payor : Medicare A/B - Planned Disposition : Pending on medical outcome - Barrier to discharge : None noted at this time. WES met with pt's fatherBen at bedside to complete initial assessment for offering support and obtaining information for pt's discharge plan. Pt is intubated and sedated at the moment. Ben reported pt lives with her 43-year old daughter, and an adopted son, 11 years old. Ben noted he is pt's main caregiver, and family members are able to assist pt as well. Pt is independent prior this admission, no need of DMEs, and drives herself. Ben agrees to discuss further once pt's dc plan is recommended. Ben denied any further issues or questions on social work at the moment of assessment and SW will continue to follow and assist. ROSA MARIA Simmons, BRITANY Medical Intensive Care - Daily Progress Note Subjective Melissa Dubose is a 64 y.o. year old female patient admitted for acute hypocix respiratory failure d/t R hilar mass vs. possible underlying pna on 03/22/2025 with following ICU needs: ventilation and sedation Interval History: No acute events overnight. Patient weaned down to 40% FiO2.. IP did biopsy and stent of proximal right mainstem to the proximal BI and cover the right upper lobe bronchus. Patient was able to follow commands. Pt still having low urine output, but Cr still looks ok . No concern for CLARY. Pt still producing rhoncus sounds. Will attempt SBT today. Meds Scheduled medications Scheduled Medications[1] Continuous medications Continuous Medications[2] PRN medications PRN Medications[3] Objective Blood pressure 114/72, pulse 79, temperature 36 C (96.8 F), resp. rate 14, height 1.778 m (5' 10 ), SpO2 92%. Physical Exam Constitutional: General: She is not in acute distress. Comments: Intubated and sedated HENT: Head: Normocephalic. Eyes: General: No scleral icterus. Cardiovascular: Rate and Rhythm: Normal rate and regular rhythm. Pulmonary: Effort: Pulmonary effort is normal. No respiratory distress. Comments: Inspiratory rhonchi present in AGA and RUL Abdominal: General: There is no distension. Palpations: Abdomen is soft. Tenderness: There is no abdominal tenderness. Musculoskeletal: General: No swelling. Skin: General: Skin is warm and dry. Neurological: General: No focal deficit present. Comments: sedated Intake/Output Summary (Last 24 hours) at 03/25/2025 0811 Last data filed at 03/25/2025 0700 Gross per 24 hour Intake 1667.48 ml Output 335 ml Net 1332.48 ml Labs: Results from last 72 hours Lab Units 03/25/25 0433 03/24/254 03/23/25 0543 SODIUM mmol/L 140 141 140 POTASSIUM mmol/L 4.3 4.0 4.5 CHLORIDE mmol/L 106 110* 107 CO2 mmol/L 23 24 26 BUN mg/dL 20 18 19 CREATININE mg/dL 0.66 0.63 0.75 GLUCOSE mg/dL 135* 104* 118* CALCIUM mg/dL 9.0 8.5* 9.6 ANION GAP mmol/L 15 11 12 EGFR mL/min/1.73m*2 >90 >90 90 PHOSPHORUS mg/dL 3.5 2.7 3.0 Results from last 72 hours Lab Units 03/25/25 0433 03/24/2534303/23/25 0543 WBC AUTO x10*3/uL 8.8 8.6 12.6* HEMOGLOBIN g/dL 12.1 12.0 13.1 HEMATOCRIT % 36.7 36.2 39.3 PLATELETS AUTO x10*3/uL 171 161 193 NEUTROS PCT AUTO % 79.4 77.7 81.2 LYMPHS PCT AUTO % 9.6 11.9 11.4 MONOS PCT AUTO % 8.8 7.7 6.0 EOS PCT AUTO % 1.3 2.3 0.6 Results from last 72 hours Lab Units 03/23/25 0851 POCT PH, ARTERIAL pH 7.31* POCT PCO2, ARTERIAL mm Hg 50* POCT PO2, ARTERIAL mm Hg 62* POCT SO2, ARTERIAL % 92* Micro/ID: Lab Results Component Value Date BLOODCULT No growth at 2 days 03/22/2025 Summary of back imaging results from the last 24 hours Imaging XR chest 1 view Result Date: 03/24/2025 1. Unchanged appearance of the right upper lung opacity with volume loss correlating with right upper lobe collapse, likely in the setting of patient's known right hilar/suprahilar mass. 2. Faint bibasilar opacity which might be atelectatic. Cannot exclude superimposed infection. 3. Suggestion of trace bilateral pleural effusion. Signed by: Julia Ng 03/24/2025 5:04 PM Dictation workstation: [id number] Bronchoscopy Tier 2; Diagnostic Result Date: 03/24/2025 A systematic EBUS staging evaluation of the bilateral vashti and mediastinum was performed with EBUS-TBNA, as detailed above. Rapid On-Site Evaluation (JOJO): Preliminary cytology was suggestive of malignancy in node level 4R (final results are pending). Covered 12 x 30 mm bonastent placed in the RMSB RECOMMENDATION: The patient will be returned to the ICU for ongoing care. Await histopathology results. Follow-up with referring physician. Specimens ID Type Source Tests Collected by Time 1 : Non-Gynecologic Cytology LYMPH NODE 4 R PULMONARY FINE NEEDLE ASPIRATION CYTOLOGY CONSULTATION (NON-GYNECOLOGIC) Nabor Sparks MD 03/24/2025 1313 2 : 4R ( In formalin) Tissue LYMPH NODE PULMONARY (SPECIFY SITE) SURGICAL PATHOLOGY EXAM Nabor Sparks MD 03/24/2025 1334 3 : Non-Gynecologic Cytology LYMPH NODE 11 L PULMONARY FINE NEEDLE ASPIRATION CYTOLOGY CONSULTATION (NON-GYNECOLOGIC) Nabor Sparks MD 03/24/2025 1436 4 : Non-Gynecologic Cytology LYMPH NODE 4 L PULMONARY FINE NEEDLE ASPIRATION CYTOLOGY CONSULTATION (NON-GYNECOLOGIC) Nabor Sparks MD 03/24/2025 1444 5 : Non-Gynecologic Cytology LYMPH NODE 7 PULMONARY FINE NEEDLE ASPIRATION CYTOLOGY CONSULTATION (NON-GYNECOLOGIC) Nabor Sparks MD 03/24/2025 1451 Procedure Location [facility] [address] [facility] [id number] XR chest 1 view Result Date: 03/24/2025 1. Similar appearance of a right upper lobe wedge-shaped opacity, favored to represent atelectasis. As this is a new finding from CT chest 03/21/2025, this may be secondary to mucous plugging. Correlate with bronchoscopy. 2. There is worsening of bibasilar hazy opacities, isthi-xserogc-unvz-left, and blunting of the bilateral costophrenic angles favored to represent small pleural effusions versus atelectasis. Infectious or inflammatory process can not be excluded. 3. Medical devices as above. I personally reviewed the images/study and I agree with the findings as stated by resident physician Jose Oneal MD. This study was interpreted at [facility], [place], [place]. MACRO: None Signed by: Lu Betancur 03/24/2025 11:04 AM Dictation workstation: [id number] XR chest 1 view Result Date: 03/23/2025 1. Interval development of a wedge-shaped opacity in the right upper lobe favored to represent atelectasis. . 2. Improvement previously visualized atelectatic changes of the right middle and lower lung. 3. Ill-defined right hilar mass again visualized however partially obstructed by the right upper lobe opacity. 4. Medical devices as above. I personally reviewed the images/study and I agree with the findings as stated by resident physician Jose Oneal MD. This study was interpreted at [facility], [place], [place]. MACRO: None Signed by: Lu Betancur 03/23/2025 11:58 AM Dictation workstation: [id number] Cardiology, Vascular, and Other Imaging Bronchoscopy Tier 2; Diagnostic Result Date: 03/24/2025 Table formatting from the original result was not included. Bronchoscopy Report [facility] Location: [facility] procedure room 8 INDICATION: Hilar mass - right BRONCHOSCOPIST: Nabor Sparks MD Educational Assistant: Delmis Delaney MD REFERRING: Nuno Guillen MD Medications See Anesthesia Record. Preprocedure A history and physical has been performed, and patient medication allergies have been reviewed. The patient's tolerance of previous anesthesia has been reviewed. The risks and benefits of the procedure and the sedation options and risks were discussed with the patient's partner. All questions were answered and informed consent obtained. Details of the Procedure The patient underwent general anesthesia, which was administered by an anesthesia professional. The patient's blood pressure, heart rate, level of consciousness, oxygen saturation, respirations, ECG and ETCO2 were monitored throughout the procedure. The patient's estimated blood loss was minimal. The scope was introduced through the endotracheal tube. The procedure was not difficult. The patient tolerated the procedure well. There were no apparent adverse events. Events Procedure Events Event Event Time ENDO SCOPE IN TIME 03/24/2025 1:03 PM ENDO SCOPE OUT TIME 03/24/2025 2:57 PM FINDINGS: After obtaining informed consent and performing a time out, the patient was anesthetized and an ET tube was placed by anesthesia. 7.5 ETT exchanged for 8.0 ETT. The flexible bronchoscope was then introduced through the advanced airway, and an airway examination was performed. The ET tube is in good position. The trachea is of normal caliber. The melvin is sharp. The tracheobronchial tree of the bilateral lung(s) was examined to at least the first subsegmental level. Right side: mucosal nodularity and narrowing seen on the right side, starting from the main melvin extending to proximal BI with narrowing primarily due to extrinsic compression. Airway narrowing was 50-75% RUL bronchi was extensively involved with severe narrowing due to combination of mucosal nodularity and extrinsic compression. Large amount of thick mucus was found all over the right side, these secretions were suctioned without complications. Left side bronchial anatomy is normal; there are no endobronchial lesions, and no secretions. Staging EBUS (right lesion) - The flexible bronchoscope was removed from the airway, and exchanged for the curvilinear EBUS bronchoscope. A systematic EBUS staging examination of the bilateral vashti and mediastinum was performed, as documented below. Lymph node sizing was performed via endobronchial ultrasound for suspected lung cancer. Sampling by transbronchial needle aspiration was performed using a 22-gauge Olympus ViziShot needle and sent for routine cytology. The 11L (interlobar) node measured 11.5 mm in size. Sampling was done, 3 samples with the needle were obtained. The 4L (lower paratracheal) node measured 6.5 mm in size. Sampling was done, 3 samples with the needle were obtained. The 7 (subcarinal) node measured 15.1 mm in size. Sampling was done, 3 samples with the needle were obtained. The 4R (lower paratracheal) node measured 19.6 mm in size. Sampling was done, 10 samples with the needle were obtained. Rapid On-Site Evaluation (JOJO): Preliminary cytology from the lymph node station(s) 4R showed malignancy (final results are pending). Balloon dilation was performed in the right main stem/proximal BI using a 3 cm length 8-9-10 mm diameter CRE balloon. The balloon was inflated up to 11 anjelica for 30 seconds a total of 4 times. After dilation, the airway lumen was improved. Given extent of stenosis to the proximal BI and that the right upper lobe was already atelectatic and not salvageable bronchoscopically the decision was made to place a stent from the proximal right mainstem to the proximal BI and cover the right upper lobe bronchus. A covered 12 x 30 mm bonastent (covered SHERIN) was then deployed under fluoroscopy guidance in the right main stem bronchus. The deployment was slightly distal in the bronchus intermedius. Endobronchial forceps were used to slight adjust the covered SHERIN. COMPLICATIONS: None ESTIMATED BLOOD LOSS: Minimal, < 5 mL The physical status of the patient was re-assessed after the procedure. The patient was transported to the recovery area / PACU in stable condition. A systematic EBUS staging evaluation of the bilateral vashti and mediastinum was performed with EBUS-TBNA, as detailed above. Rapid On-Site Evaluation (JOJO): Preliminary cytology was suggestive of malignancy in node level 4R (final results are pending). Covered 12 x 30 mm bonastent placed in the RMSB RECOMMENDATION: The patient will be returned to the ICU for ongoing care. Await histopathology results. Follow-up with referring physician. Specimens ID Type Source Tests Collected by Time 1 : Non-Gynecologic Cytology LYMPH NODE 4 R PULMONARY FINE NEEDLE ASPIRATION CYTOLOGY CONSULTATION (NON-GYNECOLOGIC) Nabor Sparks MD 03/24/2025 1313 2 : 4R ( In formalin) Tissue LYMPH NODE PULMONARY (SPECIFY SITE) SURGICAL PATHOLOGY EXAM Nabor Sparks MD 03/24/2025 1334 3 : Non-Gynecologic Cytology LYMPH NODE 11 L PULMONARY FINE NEEDLE ASPIRATION CYTOLOGY CONSULTATION (NON-GYNECOLOGIC) Nabor Sparks MD 03/24/2025 1436 4 : Non-Gynecologic Cytology LYMPH NODE 4 L PULMONARY FINE NEEDLE ASPIRATION CYTOLOGY CONSULTATION (NON-GYNECOLOGIC) Nabor Sparks MD 03/24/2025 1444 5 : Non-Gynecologic Cytology LYMPH NODE 7 PULMONARY FINE NEEDLE ASPIRATION CYTOLOGY CONSULTATION (NON-GYNECOLOGIC) Nabor Sparks MD 03/24/2025 1451 Procedure Location [facility] [id number] [facility] [id number] ECG 12 lead Result Date: 03/24/2025 Normal sinus rhythm with sinus arrhythmia Incomplete right bundle branch block Possible Right ventricular hypertrophy Septal infarct , age undetermined ST & T wave abnormality, consider anterior ischemia Abnormal ECG Confirmed by Roc Ling ([id number]) on 03/24/2025 10:28:48 AM Assessment and Plan Assessment: Melissa Dubose is a 64 y.o. 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 Mechanical Ventilation: 4-10 days Sedation/Analgesia: Fentanyl and Propofol Restraints: soft wrist restraints Updates for 03/25/25 : - Able to wean down to 40% FiO2. Attempt SBT today - IP took pt for biopsy and stent. Follow cytology - Pt showing bilateral pleural effusions on CXR and on POCUS. Given lasix 60 BID today. Follow urine output. Plan: NEUROLOGY/PSYCH: #Intubated, sedated Was intubated and sedated on ketamine during transport. Ketamine since been discontinued. ETT and OG placement confirmed on imaging. - On prop and and fentanyl - wean for SBT CARDIOVASCULAR: #HFimpEF #HTN #CAD s/p CABG 2016 #A-fib :: 11/2024 TTE EF 50-55%. 03/22 TTE EF 70-75% :: Home meds: ezetimibe 10, atorvastatin 40, metoprolol succ 100 QD, entresto 97-103mg, amlodipine 10mg, canagliflozin 100mg, aldactone 25, eliquis 5 mg BID ::s/p cardioversion 01/2024 for A-fib :: CHADs-VASC 5 :: c/f for RBBB and potential STEMI on EKG this AM. Repeat EKG shows RBBB but doesn't show ST elevation or depression. Trops negative - continue ezetimibe 10 and atorvastatin 40 - Started metoprolol tartrate 12.5 mg BID on 03/22 - holding d/t soft-low BPs - holding home lasix, amlodipine, canagliflozin, aldactone, and entresto 97-103mg BID given possible CLARY - restarted eliquis 03/25 PULMONARY: #Acute hypoxic respiratory failure :: s/p ceftriaxone/azithro (03/21) :: CT chest with 5x4.7cm R hilar mass invading into the adjacent mediastinum causing compression of the R mainstem bronchus and proximal RUL bronchus ::Likely 2/2 to compression from extensive R hilar mass although pneumonia is a possibility ::TTE done but did not include bubble study. May need to reconsider getting another one. ::resp cx growing rare mixed gram positive and gram negative organisms. BC NGTD ::CXR 03/23 showed interval worsening and collapse of the RUL. Probably the reason she needed increasing O2 requirements on 03/23 ::IP performed biopsy and stent on 03/24 - AC/VC RR 14/TV 400/FiO2 40%/PEEP 8 - SBT trial today - Repeat CXR today unchanged from yesterday - Gave lasix 60 BID today - Await cytology results from biopsy - Unasyn (03/22-*) for potential pna coverage. Total of 7D. Currently on D4. - discontinued azithromycin 03/23 - duonebs q4h PRN - 3% saline nebs for bronch-pulm hygiene RENAL/GENITOURINARY: #?CLARY - resolved :: Admission Cr 1.18, no baseline in system. Cr has been between 0.6-0.8. :: UA 03/22 negative :: pt having decreased urine output since 03/23 - trial of lasix today for fluid overload. Monitor if urine output improves. - cont to follow RFP - strict I/Os GASTROENTEROLOGY: #GERD - continue PPI - miralax daily ENDOCRINOLOGY: #T2DM :: Home canagliflozin 100mg, metformin 500 BID, januvia 100 mg daily - holding home meds - A1C for baseline - SSI #1, POC glucose q4h HEMATOLOGY: #R hilar mass - Picture concerning for malignancy as above - Follow cytology - For staging (if malignant), will likely need CT CAP w/ contrast MUSCULOSKELETAL/SKIN: - holding home tizanidine INFECTIOUS DISEASE: #Rule-out pneumonia :: Sputum cx shows rare mixed gram positive and gram negative bacteria :: Bcx x2 show NGTD - continue unasyn for 7D total. Currently on D4. - azithromycin discontinued on 03/23 ICU Check List FEN Fluids: [PRN] Electrolytes: [PRN] Nutrition: NPO at midnight Prophylaxis: DVT ppx: [held for eliquis washout]; 2 doses of heparin for DVT ppx on 03/23 GI ppx: [PPI daily] Bowel care: [Miralax] Hardware: ETT 7.5 mm (Active) Placement Date/Time: 03/22/25 0553 Placed by External Staff?: Other hospital ETT Type: ETT - single Single Lumen Tube Size: 7.5 mm Cuffed: Yes Location: Oral Number of days: 1 Urethral Catheter 16 Fr. (Active) Placement Date/Time: 03/22/25 09 Hand Hygiene Completed: Yes Tube Size (Fr.): 16 Fr. Catheter Balloon Size: 10 mL Urine Returned: Yes Number of days: 0 NG/OG/Feeding Tube Orogastric Center mouth (Active) Earliest Known Present: 03/22/25 Placed by External Staff?: Other hospital Type of Tube: NG/OG Tube Tube Type: Orogastric Tube Location: Center mouth Number of days: 1 Social: Code: Full Code NOK: Primary Emergency Contact: Ben Funez (father) [phone] - listed in chart, but daughter is involved per transfer call -> Rhina ([phone]) Disposition: ICU. Maybe floor tomorrow Tara Hernandez MD 03/25/25 at 8:11 AM Disclaimer: Documentation completed with the information available at the time of input. The times in the chart may not be reflective of actual patient care times, interventions, or procedures. Documentation occurs after the physical care of the patient. [1] albuterol, 2.5 mg, nebulization, q6h ampicillin-sulbactam, 3 g, intravenous, q6h atorvastatin, 40 mg, oral, Daily pantoprazole, 40 mg, oral, Daily before breakfast Or esomeprazole, 40 mg, nasoduodenal tube, Daily before breakfast Or pantoprazole, 40 mg, intravenous, Daily before breakfast ezetimibe, 10 mg, oral, Daily insulin lispro, 0-5 Units, subcutaneous, q4h [Held by provider] metoprolol tartrate, 12.5 mg, oral, BID polyethylene glycol, 17 g, oral, Daily sodium chloride, 3 mL, nebulization, q6h FUNMI [2] fentaNYL, 0-300 mcg/hr, Last Rate: 150 mcg/hr (03/25/25 0700) propofol, 5-50 mcg/kg/min, Last Rate: 15 mcg/kg/min (03/25/25 0700) [3] PRN medications: dextrose, dextrose, fentaNYL, glucagon, glucagon, ipratropium-albuteroL, oxygen Cosigned by Nuno Guillen MD at 03/26/2025 8:59 AM EDT Associated attestation - Nuno Acosta MD - 03/26/2025 8:59 AM EDT Statement of Acuity: This patient was critically ill and required continued critical care treatment. I have personally reviewed and evaluated the most recent data and results, examined the patient, and formulated the plan of care as outlined above. Critical care time is spent at the bedside and/or the immediate area and has included, but is not limited to, the review of diagnostic tests, labs, radiographs, serial assessments of hemodynamics, respiratory status, ventilatory management, and family updates. Teaching and any separately billable procedures are not included in the time calculation. Critical care time = 38 minutes ACUTE HYPOXIC RESP FAILURE SEC TO RT UPPER LOBE COLLAPSE s/p BECCA endobronchial stent Possible post obstructive pna Rt hilar mass Needing mechanical ventilation FiO2 down to 50% after stent placement Plan Staging and BECCA stent to be placed yesterday Continue Unasyn to cover post obstructive pna 7 days total Follow up cytology/histopath/cultures from bronch SBT Routine ICU care Medical Intensive Care - Daily Progress Note Subjective Melissa Dubose is a 64 y.o. year old female patient admitted for acute hypocix respiratory failure d/t R hilar mass vs. possible underlying pna on 03/22/2025 with following ICU needs: ventilation and sedation Interval History: No acute events overnight. Patient still requiring 100% FiO2. IP to do procedure today. Patient was able to follow some commands. Pt still having low urine output, but Cr still looks ok . No concern for CLARY. Pt having more rhonchus/snoring sounds, but nurse said she wasn't able to suction anything out. Meds Scheduled medications Scheduled Medications[1] Continuous medications Continuous Medications[2] PRN medications PRN Medications[3] Objective Blood pressure 104/60, pulse 82, temperature 36.8 C (98.2 F), resp. rate 14, height 1.778 m (5' 10 ), SpO2 94%. Physical Exam Constitutional: General: She is not in acute distress. Comments: Intubated and sedated HENT: Head: Normocephalic. Eyes: General: No scleral icterus. Cardiovascular: Rate and Rhythm: Normal rate and regular rhythm. Pulmonary: Effort: Pulmonary effort is normal. No respiratory distress. Comments: Inspiratory and expiratory rhonchi present in all lung [place] but more prominent in AGA and RUL Abdominal: General: There is no distension. Palpations: Abdomen is soft. Tenderness: There is no abdominal tenderness. Musculoskeletal: General: No swelling. Skin: General: Skin is warm and dry. Neurological: General: No focal deficit present. Comments: sedated Intake/Output Summary (Last 24 hours) at 03/24/2025 1202 Last data filed at 03/24/2025 1100 Gross per 24 hour Intake 1175.28 ml Output 535 ml Net 640.28 ml Labs: Results from last 72 hours Lab Units 03/24/25 0344 03/23/25 0543 03/22/25 0625 SODIUM mmol/L 141 140 136 POTASSIUM mmol/L 4.0 4.5 4.1 CHLORIDE mmol/L 110* 107 104 CO2 mmol/L 24 26 20* BUN mg/dL 18 19 19 CREATININE mg/dL 0.63 0.75 0.77 GLUCOSE mg/dL 104* 118* 235* CALCIUM mg/dL 8.5* 9.6 8.9 ANION GAP mmol/L 11 12 16 EGFR mL/min/1.73m*2 >90 90 87 PHOSPHORUS mg/dL 2.7 3.0 4.3 Results from last 72 hours Lab Units 03/24/25 0344 03/23/25 0543 03/22/25 0625 WBC AUTO x10*3/uL 8.6 12.6* 15.7* HEMOGLOBIN g/dL 12.0 13.1 13.7 HEMATOCRIT % 36.2 39.3 44.2 PLATELETS AUTO x10*3/uL 161 193 222 NEUTROS PCT AUTO % 77.7 81.2 93.0 LYMPHS PCT AUTO % 11.9 11.4 4.7 MONOS PCT AUTO % 7.7 6.0 1.3 EOS PCT AUTO % 2.3 0.6 0.0 Results from last 72 hours Lab Units 03/23/25 0851 POCT PH, ARTERIAL pH 7.31* POCT PCO2, ARTERIAL mm Hg 50* POCT PO2, ARTERIAL mm Hg 62* POCT SO2, ARTERIAL % 92* Micro/ID: Lab Results Component Value Date BLOODCULT No growth at 2 days 03/22/2025 Summary of back imaging results from the last 24 hours Imaging XR chest 1 view Result Date: 03/24/2025 1. Similar appearance of a right upper lobe wedge-shaped opacity, favored to represent atelectasis. As this is a new finding from CT chest 03/21/2025, this may be secondary to mucous plugging. Correlate with bronchoscopy. 2. There is worsening of bibasilar hazy opacities, xobzt-imybjdy-hxwn-left, and blunting of the bilateral costophrenic angles favored to represent small pleural effusions versus atelectasis. Infectious or inflammatory process can not be excluded. 3. Medical devices as above. I personally reviewed the images/study and I agree with the findings as stated by resident physician Jose Oneal MD. This study was interpreted at [place], [place]. MACRO: None Signed by: Lu Betancur 03/24/2025 11:04 AM Dictation workstation: [id number] XR chest 1 view Result Date: 03/23/2025 1. Interval development of a wedge-shaped opacity in the right upper lobe favored to represent atelectasis. . 2. Improvement previously visualized atelectatic changes of the right middle and lower lung. 3. Ill-defined right hilar mass again visualized however partially obstructed by the right upper lobe opacity. 4. Medical devices as above. I personally reviewed the images/study and I agree with the findings as stated by resident physician Jose Oneal MD. This study was interpreted at [place], [place]. MACRO: None Signed by: Lu Betancur 03/23/2025 11:58 AM Dictation workstation: [id number] Cardiology, Vascular, and Other Imaging ECG 12 lead Result Date: 03/24/2025 Normal sinus rhythm with sinus arrhythmia Incomplete right bundle branch block Possible Right ventricular hypertrophy Septal infarct , age undetermined ST & T wave abnormality, consider anterior ischemia Abnormal ECG Confirmed by Roc Ling ([id number]) on 03/24/2025 10:28:48 AM Transthoracic Echo Complete Result Date: 03/22/2025 [facility], [address] [place] [address] and TRANSTHORACIC ECHOCARDIOGRAM REPORT Patient Name: MELISSA DUBOSE Reading Physician: [id number] Aldo Gaspar MD Study Date: 03/22/2025 Ordering Provider: [id number] NUNO GUILLEN MRN/PID: [id number] Fellow: Nurse: Date of /Age: 12 1960 Clinical Program Consultant: RAE Mccall RDCS Gender assigned at F Additional Staff: : Height: 177.80 cm Admit Date: 03/22/2025 Weight: 103.87 kg Admission Status: Inpatient - Routine BSA / BMI: 2.21 m2 / 32.86 kg/m2 Blood Pressure: 129/68 mmHg Department Location: [address] Study Type: TRANSTHORACIC ECHO (TTE) COMPLETE Diagnosis/ICD: Acute respiratory failure with hypoxia-J96.01 Indication: Acute respiratory failure with hypoxia CPT Code: Echo Complete w Full Doppler-[id number] Patient History: Pertinent History: A-Fib, Dyspnea and Chest Pain. ICM, CAD s/p CABG 2016, acute hypoxic respiratory failure. Study Detail: The following Echo studies were performed: 2D, M-Mode, Doppler and color flow. Technically challenging study due to patient lying in supine position and body habitus. The patient is intubated. Definity used as a contrast agent for endocardial border definition and agitated saline used as a contrast agent for intraseptal flow evaluation. Total contrast used for this procedure was 2 mL via IV push. PHYSICIAN INTERPRETATION: Left Ventricle: The left ventricular systolic function is normal with a visually estimated ejection fraction of 70-75%. There are no regional left ventricular wall motion abnormalities. The left ventricular cavity size is normal. There is mildly increased septal and normal posterior left ventricular wall thickness. There is no evidence of left ventricular hypertrophy. Left ventricular diastolic filling is indeterminate. Left Atrium: The left atrial size is normal. Right Ventricle: The right ventricle is normal in size. There is normal right ventricular global systolic function. Right Atrium: The right atrium is mildly dilated. Aortic Valve: The aortic valve is trileaflet. There is no evidence of aortic valve regurgitation. Mitral Valve: The mitral valve is normal in structure. There is trace mitral valve regurgitation. The E Vmax is 0.55 m/s. Tricuspid Valve: The tricuspid valve is structurally normal. There is trace tricuspid regurgitation. The right ventricular systolic pressure could not be estimated. Pulmonic Valve: The pulmonic valve is structurally normal. There is physiologic pulmonic valve regurgitation. Pericardium: Trivial pericardial effusion. Aorta: The aortic root is abnormal. There is no dilatation of the ascending aorta. There is mild dilatation of the aortic root. Pulmonary Artery: The pulmonary artery is not well visualized. Systemic Veins: The inferior vena cava appears normal in size, with IVC inspiratory collapse less than 50%. In comparison to the previous echocardiogram(s): There are no prior studies on this patient for comparison purposes. CONCLUSIONS: 1. The left ventricular systolic function is normal with a visually estimated ejection fraction of 70-75%. 2. Left ventricular diastolic filling is indeterminate. 3. There is no evidence of left ventricular hypertrophy. 4. There is normal right ventricular global systolic function. 5. The pulmonary artery is not well visualized. QUANTITATIVE DATA SUMMARY: 2D MEASUREMENTS: Normal Ranges: Ao Root d: 3.90 cm (2.0-3.7cm) LAs: 3.90 cm (2.7-4.0cm) IVSd: 1.10 cm (0.6-1.1cm) LVPWd: 0.80 cm (0.6-1.1cm) LVIDd: 5.60 cm (3.9-5.9cm) LVIDs: 4.10 cm LV Mass Index: 93 g/m2 LVEDV Index: 37 ml/m2 LV % FS 26.8 % LEFT ATRIUM: Normal Ranges: LA Vol A4C: 64.9 ml (22+/-6mL/m2) LA Vol A2C: 49.0 ml LA Vol BP: 56.5 ml LA Vol Index A4C: 29.4ml/m2 LA Vol Index A2C: 22.1 ml/m2 LA Vol Index BP: 25.6 ml/m2 LA Area A4C: 22.4 cm2 LA Area A2C: 19.5 cm2 LA Major [place] A4C: 6.6 cm LA Major [place] A2C: 6.6 cm LA Volume Index: 25.6 ml/m2 RIGHT ATRIUM: Normal Ranges: RA Area A4C: 23.3 cm2 M-MODE MEASUREMENTS: Normal Ranges: Ao Root: 3.90 cm (2.0-3.7cm) AORTA MEASUREMENTS: Normal Ranges: Asc Ao, d: 3.10 cm (2.1-3.4cm) LV SYSTOLIC FUNCTION: Normal Ranges: EF-A4C View: 78 % (>=55%) EF-A2C View: 71 % EF-Biplane: 76 % EF-Visual: 73 % LV EF Reported: 73 % LV DIASTOLIC FUNCTION: Normal Ranges: MV Peak E: 0.55 m/s (0.7-1.2 m/s) MV Peak A: 0.63 m/s (0.42-0.7 m/s) E/A Ratio: 0.87 (1.0-2.2) MV e' 0.059 m/s (>8.0) MV lateral e' 0.05 m/s MV medial e' 0.06 m/s MV A Dur: 156.00 msec E/e' Ratio: 9.33 (<8.0) MV DT: 201 msec (150-240 msec) MITRAL VALVE: Normal Ranges: MV DT: 201 msec (150-240msec) AORTIC VALVE: Normal Ranges: AoV Vmax: 1.43 m/s (<=1.7m/s) AoV Peak P.2 mmHg (<20mmHg) LVOT Max Liam: 1.02 m/s (<=1.1m/s) LVOT VTI: 18.40 cm LVOT Diameter: 2.30 cm (1.8-2.4cm) AoV Area,Vmax: 2.96 cm2 (2.5-4.5cm2) RIGHT VENTRICLE: RV Basal 3.20 cm RV Mid 2.50 cm RV Major 6.8 cm TAPSE: 14.1 mm RV s' 0.10 m/s TRICUSPID VALVE/RVSP: Normal Ranges: Est. RA Pressure: 8 IVC Diam: 1.90 cm PULMONIC VALVE: Normal Ranges: PV Max Liam: 1.0 m/s (0.6-0.9m/s) PV Max P.2 mmHg [id number] Aldo Gaspar MD Electronically signed on 03/22/2025 at 5:13:50 PM Final Assessment and Plan Assessment: Melissa Dubose is a 64 y.o. 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 Mechanical Ventilation: 4-10 days Sedation/Analgesia: Fentanyl and Propofol Restraints: soft wrist restraints Updates for 03/24/25 : - Stable on 100% FiO2 this AM - IP took pt for biopsy and stent - c/f for RBBB and potential STEMI on EKG this AM. Repeat EKG shows RBBB but doesn't show ST elevation or depression. Trops negative Plan: NEUROLOGY/PSYCH: #Intubated, sedated Was intubated and sedated on ketamine during transport. Ketamine since been discontinued. ETT and OG placement confirmed on imaging. - On prop and and fentanyl CARDIOVASCULAR: #HFimpEF #HTN #CAD s/p CABG 2016 #A-fib :: 11/2024 TTE EF 50-55%. 03/22 TTE EF 70-75% :: Home meds: ezetimibe 10, atorvastatin 40, metoprolol succ 100 QD, entresto 97-103mg, amlodipine 10mg, canagliflozin 100mg, aldactone 25, eliquis 5 mg BID ::s/p cardioversion 01/2024 for A-fib :: CHADs-VASC 5 :: c/f for RBBB and potential STEMI on EKG this AM. Repeat EKG shows RBBB but doesn't show ST elevation or depression. Trops negative - continue ezetimibe 10 and atorvastatin 40 - Started metoprolol tartrate 12.5 mg BID on 03/22 - holding d/t soft-low BPs - holding lasix, amlodipine, canagliflozin, aldactone, and entresto 97-103mg BID given possible CLARY - hold eliquis for impending procedure. Will evaluate re-initiation based on procedure findings PULMONARY: #Acute hypoxic respiratory failure :: s/p ceftriaxone/azithro (03/21) :: CT chest with 5x4.7cm R hilar mass invading into the adjacent mediastinum causing compression of the R mainstem bronchus and proximal RUL bronchus ::Likely 2/2 to compression from extensive R hilar mass although pneumonia is a possibility ::TTE done but did not include bubble study. May need to reconsider getting another one. ::resp cx growing rare mixed gram positive and gram negative organisms. BC NGTD ::CXR 03/23 showed interval worsening and collapse of the RUL. Probably the reason she needed increasing O2 requirements. - AC/VC RR 14/TV 400/FiO2 100%/PEEP 8 - Repeat CXR today - IP to take patient today for procedure. NPO at midnight. Holding eliquis - Unasyn (03/22-*) for anaerobic/aspiration coverage - discontinued azithromycin 03/23 - duonebs q4h PRN - 3% saline nebs for bronch-pulm hygiene RENAL/GENITOURINARY: #?CLARY - resolved :: Admission Cr 1.18, no baseline in system. Cr has been between 0.6-0.8. :: UA 03/22 negative :: pt having decreased urine output since 03/23 - 1L LR maintenance fluids for low urine output - cont to follow on RFP - strict I/Os GASTROENTEROLOGY: #GERD - continue PPI - miralax daily ENDOCRINOLOGY: #T2DM :: Home canagliflozin 100mg, metformin 500 BID, januvia 100 mg daily - holding home meds - A1C for baseline - SSI #1, POC glucose q4h HEMATOLOGY: #R hilar mass - Picture concerning for malignancy as above - IP to biopsy and stent today - For staging (if malignant), will likely need CT CAP w/ contrast MUSCULOSKELETAL/SKIN: - holding home tizanidine INFECTIOUS DISEASE: #Rule-out pneumonia :: Sputum cx shows rare mixed gram positive and gram negative bacteria :: Bcx x2 show NGTD - continue unasyn until procedure results - azithromycin discontinued on 03/23 ICU Check List FEN Fluids: [PRN] Electrolytes: [PRN] Nutrition: NPO at midnight Prophylaxis: DVT ppx: [held for eliquis washout]; 2 doses of heparin for DVT ppx on 03/23 GI ppx: [PPI daily] Bowel care: [Miralax] Hardware: ETT 7.5 mm (Active) Placement Date/Time: 03/22/25 0553 Placed by External Staff?: Other hospital ETT Type: ETT - single Single Lumen Tube Size: 7.5 mm Cuffed: Yes Location: Oral Number of days: 1 Urethral Catheter 16 Fr. (Active) Placement Date/Time: 03/22/25 09 Hand Hygiene Completed: Yes Tube Size (Fr.): 16 Fr. Catheter Balloon Size: 10 mL Urine Returned: Yes Number of days: 0 NG/OG/Feeding Tube Orogastric Center mouth (Active) Earliest Known Present: 03/22/25 Placed by External Staff?: Other hospital Type of Tube: NG/OG Tube Tube Type: Orogastric Tube Location: Center mouth Number of days: 1 Social: Code: Full Code NOK: Primary Emergency Contact: Ben Funez (father) [phone] - listed in chart, but daughter is involved per transfer call -> Rhina ([phone]) Disposition: Floor Tara Hrenandez MD 03/24/25 at 12:02 PM Disclaimer: Documentation completed with the information available at the time of input. The times in the chart may not be reflective of actual patient care times, interventions, or procedures. Documentation occurs after the physical care of the patient. [1] ampicillin-sulbactam, 3 g, intravenous, q6h atorvastatin, 40 mg, oral, Daily pantoprazole, 40 mg, oral, Daily before breakfast Or esomeprazole, 40 mg, nasoduodenal tube, Daily before breakfast Or pantoprazole, 40 mg, intravenous, Daily before breakfast ezetimibe, 10 mg, oral, Daily insulin lispro, 0-5 Units, subcutaneous, q4h [Held by provider] metoprolol tartrate, 12.5 mg, oral, BID perflutren protein A microsphere, 0.5 mL, intravenous, Once in imaging polyethylene glycol, 17 g, oral, Daily sodium chloride, 3 mL, nebulization, q6h FUNMI sulfur hexafluoride microsphr, 2 mL, intravenous, Once in imaging [2] fentaNYL, 0-300 mcg/hr, Last Rate: 150 mcg/hr (03/24/25 1048) lactated Ringer's, 50 mL/hr, Last Rate: 50 mL/hr (03/24/25 1003) propofol, 5-50 mcg/kg/min, Last Rate: 15 mcg/kg/min (03/24/25 0403) [3] PRN medications: dextrose, dextrose, fentaNYL, glucagon, glucagon, ipratropium-albuteroL, oxygen Cosigned by Nuno Guillen MD at 03/25/2025 8:42 AM EDT Associated attestation - Nuno Acosta MD - 03/25/2025 8:42 AM EDT Statement of Acuity: This patient was critically ill and required continued critical care treatment. I have personally reviewed and evaluated the most recent data and results, examined the patient, and formulated the plan of care as outlined above. Critical care time is spent at the bedside and/or the immediate area and has included, but is not limited to, the review of diagnostic tests, labs, radiographs, serial assessments of hemodynamics, respiratory status, ventilatory management, and family updates. Teaching and any separately billable procedures are not included in the time calculation. Critical care time = 38 minutes ACUTE HYPOXIC RESP FAILURE SEC TO RT UPPER LOBE COLLAPSE Possible post obstructive pna Rt hilar mass Needing mechanical ventilation FiO2 100% increase since 70% yesterday Plan Staging and BECCA stent to be placed today Continue Unasyn to cover post obstructive pna Follow up cytology/histopath/cultures from bronch Routine ICU care Social Work Progress note late note Interdisciplinary team meeting: intubated and sedated, bronchoscopy on 03/23, the patient is going to be difficult to extubate Payor: Medicare Support: fatherBen is listed as NOK Discharge planning: Pending medical outcome and rehab recommendation ROSA MARIA Jain, MANAGER [employer] Medical Intensive Care - Daily Progress Note Fili Dubose is a 64 y.o. year old female patient admitted for acute hypocix respiratory failure d/t R hilar mass vs. possible underlying pna on 03/22/2025 with following ICU needs: ventilation and sedation Interval History: No acute events overnight. Patient requiring increase in FiO2 this AM to 100% as she was sat'ing in the 80s on 80% FiO2. Patient still following commands. Nurse had concern yesterday afternoon for decreased urine output. Cr looks ok today. No concern for CLARY. IP to take patient for procedure tomorrow. Meds Scheduled medications Scheduled Medications[1] Continuous medications Continuous Medications[2] PRN medications PRN Medications[3] Objective Blood pressure 98/62, pulse 73, temperature 35.9 C (96.6 F), resp. rate 14, height 1.778 m (5' 10 ), SpO2 100%. Physical Exam Constitutional: General: She is not in acute distress. Comments: Intubated and sedated HENT: Head: Normocephalic. Eyes: General: No scleral icterus. Cardiovascular: Rate and Rhythm: Normal rate and regular rhythm. Pulmonary: Effort: No respiratory distress. Breath sounds: Normal breath sounds. No wheezing. Abdominal: General: There is no distension. Palpations: Abdomen is soft. Tenderness: There is no abdominal tenderness. Musculoskeletal: General: No swelling. Skin: General: Skin is warm and dry. Intake/Output Summary (Last 24 hours) at 03/23/2025 1516 Last data filed at 03/23/2025 1440 Gross per 24 hour Intake 1614.07 ml Output 462 ml Net 1152.07 ml Labs: Results from last 72 hours Lab Units 03/23/25 0543 03/22/25 0625 SODIUM mmol/L 140 136 POTASSIUM mmol/L 4.5 4.1 CHLORIDE mmol/L 107 104 CO2 mmol/L 26 20* BUN mg/dL 19 19 CREATININE mg/dL 0.75 0.77 GLUCOSE mg/dL 118* 235* CALCIUM mg/dL 9.6 8.9 ANION GAP mmol/L 12 16 EGFR mL/min/1.73m*2 90 87 PHOSPHORUS mg/dL 3.0 4.3 Results from last 72 hours Lab Units 03/23/25 0543 03/22/25 0625 WBC AUTO x10*3/uL 12.6* 15.7* HEMOGLOBIN g/dL 13.1 13.7 HEMATOCRIT % 39.3 44.2 PLATELETS AUTO x10*3/uL 193 222 NEUTROS PCT AUTO % 81.2 93.0 LYMPHS PCT AUTO % 11.4 4.7 MONOS PCT AUTO % 6.0 1.3 EOS PCT AUTO % 0.6 0.0 Results from last 72 hours Lab Units 03/23/25 0851 POCT PH, ARTERIAL pH 7.31* POCT PCO2, ARTERIAL mm Hg 50* POCT PO2, ARTERIAL mm Hg 62* POCT SO2, ARTERIAL % 92* Micro/ID: Lab Results Component Value Date BLOODCULT No growth at 1 day 03/22/2025 Summary of back imaging results from the last 24 hours Imaging XR chest 1 view Result Date: 03/23/2025 1. Interval development of a wedge-shaped opacity in the right upper lobe favored to represent atelectasis. . 2. Improvement previously visualized atelectatic changes of the right middle and lower lung. 3. Ill-defined right hilar mass again visualized however partially obstructed by the right upper lobe opacity. 4. Medical devices as above. I personally reviewed the images/study and I agree with the findings as stated by resident physician Jose Oneal MD. This study was interpreted at [place], [place]. MACRO: None Signed by: Lu Betancur 03/23/2025 11:58 AM Dictation workstation: [id number] XR chest 1 view Result Date: 03/22/2025 1. ?Loculated air collection over the inferolateral margins of the right hemithorax. 2. Medical devices as above. MACRO: None Signed by: Lu Betancur 03/22/2025 9:28 AM Dictation workstation: [id number] XR abdomen 1 view Result Date: 03/22/2025 1. Enteric tube with the side port at the level of the GE junction projection MACRO: None Signed by: Lu Betancur 03/22/2025 8:41 AM Dictation workstation: [id number] Cardiology, Vascular, and Other Imaging Transthoracic Echo Complete Result Date: 03/22/2025 [facility], [address] [place] [address] and TRANSTHORACIC ECHOCARDIOGRAM REPORT Patient Name: MELISSA DUBOSE Reading Physician: [id number] Aldo Gaspar MD Study Date: 03/22/2025 Ordering Provider: [id number] NUNO GUILLEN MRN/PID: [id number] Fellow: Nurse: Date of /Age: 14 1960 Clinical Program Consultant: RAE Mccall RDCS Gender assigned at F Additional Staff: : Height: 177.80 cm Admit Date: 03/22/2025 Weight: 103.87 kg Admission Status: Inpatient - Routine BSA / BMI: 2.21 m2 / 32.86 kg/m2 Blood Pressure: 129/68 mmHg Department Location: [address] Study Type: TRANSTHORACIC ECHO (TTE) COMPLETE Diagnosis/ICD: Acute respiratory failure with hypoxia-J96.01 Indication: Acute respiratory failure with hypoxia CPT Code: Echo Complete w Full [id number] Patient History: Pertinent History: A-Fib, Dyspnea and Chest Pain. ICM, CAD s/p CABG 2016, acute hypoxic respiratory failure. Study Detail: The following Echo studies were performed: 2D, M-Mode, Doppler and color flow. Technically challenging study due to patient lying in supine position and body habitus. The patient is intubated. Definity used as a contrast agent for endocardial border definition and agitated saline used as a contrast agent for intraseptal flow evaluation. Total contrast used for this procedure was 2 mL via IV push. PHYSICIAN INTERPRETATION: Left Ventricle: The left ventricular systolic function is normal with a visually estimated ejection fraction of 70-75%. There are no regional left ventricular wall motion abnormalities. The left ventricular cavity size is normal. There is mildly increased septal and normal posterior left ventricular wall thickness. There is no evidence of left ventricular hypertrophy. Left ventricular diastolic filling is indeterminate. Left Atrium: The left atrial size is normal. Right Ventricle: The right ventricle is normal in size. There is normal right ventricular global systolic function. Right Atrium: The right atrium is mildly dilated. Aortic Valve: The aortic valve is trileaflet. There is no evidence of aortic valve regurgitation. Mitral Valve: The mitral valve is normal in structure. There is trace mitral valve regurgitation. The E Vmax is 0.55 m/s. Tricuspid Valve: The tricuspid valve is structurally normal. There is trace tricuspid regurgitation. The right ventricular systolic pressure could not be estimated. Pulmonic Valve: The pulmonic valve is structurally normal. There is physiologic pulmonic valve regurgitation. Pericardium: Trivial pericardial effusion. Aorta: The aortic root is abnormal. There is no dilatation of the ascending aorta. There is mild dilatation of the aortic root. Pulmonary Artery: The pulmonary artery is not well visualized. Systemic Veins: The inferior vena cava appears normal in size, with IVC inspiratory collapse less than 50%. In comparison to the previous echocardiogram(s): There are no prior studies on this patient for comparison purposes. CONCLUSIONS: 1. The left ventricular systolic function is normal with a visually estimated ejection fraction of 70-75%. 2. Left ventricular diastolic filling is indeterminate. 3. There is no evidence of left ventricular hypertrophy. 4. There is normal right ventricular global systolic function. 5. The pulmonary artery is not well visualized. QUANTITATIVE DATA SUMMARY: 2D MEASUREMENTS: Normal Ranges: Ao Root d: 3.90 cm (2.0-3.7cm) LAs: 3.90 cm (2.7-4.0cm) IVSd: 1.10 cm (0.6-1.1cm) LVPWd: 0.80 cm (0.6-1.1cm) LVIDd: 5.60 cm (3.9-5.9cm) LVIDs: 4.10 cm LV Mass Index: 93 g/m2 LVEDV Index: 37 ml/m2 LV % FS 26.8 % LEFT ATRIUM: Normal Ranges: LA Vol A4C: 64.9 ml (22+/-6mL/m2) LA Vol A2C: 49.0 ml LA Vol BP: 56.5 ml LA Vol Index A4C: 29.4ml/m2 LA Vol Index A2C: 22.1 ml/m2 LA Vol Index BP: 25.6 ml/m2 LA Area A4C: 22.4 cm2 LA Area A2C: 19.5 cm2 LA Major [place] A4C: 6.6 cm LA Major [place] A2C: 6.6 cm LA Volume Index: 25.6 ml/m2 RIGHT ATRIUM: Normal Ranges: RA Area A4C: 23.3 cm2 M-MODE MEASUREMENTS: Normal Ranges: Ao Root: 3.90 cm (2.0-3.7cm) AORTA MEASUREMENTS: Normal Ranges: Asc Ao, d: 3.10 cm (2.1-3.4cm) LV SYSTOLIC FUNCTION: Normal Ranges: EF-A4C View: 78 % (>=55%) EF-A2C View: 71 % EF-Biplane: 76 % EF-Visual: 73 % LV EF Reported: 73 % LV DIASTOLIC FUNCTION: Normal Ranges: MV Peak E: 0.55 m/s (0.7-1.2 m/s) MV Peak A: 0.63 m/s (0.42-0.7 m/s) E/A Ratio: 0.87 (1.0-2.2) MV e' 0.059 m/s (>8.0) MV lateral e' 0.05 m/s MV medial e' 0.06 m/s MV A Dur: 156.00 msec E/e' Ratio: 9.33 (<8.0) MV DT: 201 msec (150-240 msec) MITRAL VALVE: Normal Ranges: MV DT: 201 msec (150-240msec) AORTIC VALVE: Normal Ranges: AoV Vmax: 1.43 m/s (<=1.7m/s) AoV Peak P.2 mmHg (<20mmHg) LVOT Max Liam: 1.02 m/s (<=1.1m/s) LVOT VTI: 18.40 cm LVOT Diameter: 2.30 cm (1.8-2.4cm) AoV Area,Vmax: 2.96 cm2 (2.5-4.5cm2) RIGHT VENTRICLE: RV Basal 3.20 cm RV Mid 2.50 cm RV Major 6.8 cm TAPSE: 14.1 mm RV s' 0.10 m/s TRICUSPID VALVE/RVSP: Normal Ranges: Est. RA Pressure: 8 IVC Diam: 1.90 cm PULMONIC VALVE: Normal Ranges: PV Max Liam: 1.0 m/s (0.6-0.9m/s) PV Max P.2 mmHg [id number] Aldo Gaspar MD Electronically signed on 03/22/2025 at 5:13:50 PM Final Assessment and Plan Assessment: Melissa Dubose is a 64 y.o. 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 Mechanical Ventilation: 4-10 days Sedation/Analgesia: Fentanyl and Propofol Restraints: soft wrist restraints Updates for 03/23/25 : - CXR 03/23 showed interval worsening and collapse of the RUL. Probably the reason she needed increasing O2 requirements this AM - IP to take patient tomorrow for procedure - 2 doses of DVT heparin today - trickle feeds for now. NPO midnight. Plan: NEUROLOGY/PSYCH: #Intubated, sedated Was intubated and sedated on ketamine during transport. Ketamine since been discontinued. ETT and OG placement confirmed on imaging. - On prop and and fentanyl CARDIOVASCULAR: #HFimpEF #HTN #CAD s/p CABG 2015 #A-fib :: 11/2024 TTE EF 50-55%. 03/22 TTE EF 70-75% :: Home meds: ezetimibe 10, atorvastatin 40, metoprolol succ 100 QD, entresto 97-103mg, amlodipine 10mg, canagliflozin 100mg, aldactone 25, eliquis 5 mg BID ::s/p cardioversion 01/2024 for A-fib :: CHADs-VASC 5 - continue ezetimibe 10 and atorvastatin 40 - Started metoprolol tartrate 12.5 mg BID on 03/22 - holding d/t soft-low BPs - holding lasix, amlodipine, canagliflozin, aldactone, and entresto 97-103mg BID given possible CLARY - hold eliquis for impending procedure - Gave 2 doses of heparin for DVT ppx on 03/23 PULMONARY: #Acute hypoxic respiratory failure :: s/p ceftriaxone/azithro (03/21) :: CT chest with 5x4.7cm R hilar mass invading into the adjacent mediastinum causing compression of the R mainstem bronchus and proximal RUL bronchus ::Likely 2/2 to compression from extensive R hilar mass although pneumonia is a possibility ::TTE done but did not include bubble study. May need to reconsider getting another one. - AC/VC RR 14/TV 400/FiO2 100%/PEEP 8 - CXR 03/23 showed interval worsening and collapse of the RUL. Probably the reason she needed increasing O2 requirements this AM - IP to take patient tomorrow for procedure. NPO at midnight. Holding eliquis - Bcx x2, sputum cx - Unasyn (03/22-*) for anaerobic/aspiration coverage - discontinue azithromycin - duonebs q4h PRN RENAL/GENITOURINARY: #?CLARY :: Admission Cr 1.18, no baseline in system - cont to follow on RFP - UA/Ucx GASTROENTEROLOGY: #GERD - continue PPI - miralax daily ENDOCRINOLOGY: #T2DM :: Home canagliflozin 100mg, metformin 500 BID, januvia 100 mg daily - holding home meds - A1C for baseline - SSI #1, POC glucose q4h HEMATOLOGY: #T2DM :: Home canagliflozin 100mg, metformin 500 BID, januvia 100 mg daily - holding home meds - A1C for baseline - SSI #1, POC glucose q4h MUSCULOSKELETAL/SKIN: - holding home tizanidine INFECTIOUS DISEASE: #Rule-out pneumonia - Sputum cx, Bcx x2 - continue unasyn and azithromycin pending cultures ICU Check List FEN Fluids: [PRN] Electrolytes: [PRN] Nutrition: Enteral feeding with NPO Isosource 1.5; 10 cc/hr; 50; Saline; Every 6 hours Prophylaxis: DVT ppx: [held for eliquis washout]; 2 doses of heparin for DVT ppx on 03/23 GI ppx: [PPI daily] Bowel care: [Miralax] Hardware: ETT 7.5 mm (Active) Placement Date/Time: 03/22/25 0553 Placed by External Staff?: Other hospital ETT Type: ETT - single Single Lumen Tube Size: 7.5 mm Cuffed: Yes Location: Oral Number of days: 1 Urethral Catheter 16 Fr. (Active) Placement Date/Time: 03/22/25 0941 Hand Hygiene Completed: Yes Tube Size (Fr.): 16 Fr. Catheter Balloon Size: 10 mL Urine Returned: Yes Number of days: 0 NG/OG/Feeding Tube Orogastric Center mouth (Active) Earliest Known Present: 03/22/25 Placed by External Staff?: Other hospital Type of Tube: NG/OG Tube Tube Type: Orogastric Tube Location: Center mouth Number of days: 1 Social: Code: Full Code NOK: Primary Emergency Contact: Ben Funez (father) [phone] - listed in chart, but daughter is involved per transfer call -> Rhina ([phone]) Disposition: Floor Tara Hernandez MD 03/23/25 at 3:16 PM Disclaimer: Documentation completed with the information available at the time of input. The times in the chart may not be reflective of actual patient care times, interventions, or procedures. Documentation occurs after the physical care of the patient. [1] ampicillin-sulbactam, 3 g, intravenous, q6h atorvastatin, 40 mg, oral, Daily pantoprazole, 40 mg, oral, Daily before breakfast Or esomeprazole, 40 mg, nasoduodenal tube, Daily before breakfast Or pantoprazole, 40 mg, intravenous, Daily before breakfast ezetimibe, 10 mg, oral, Daily heparin (porcine), 5,000 Units, subcutaneous, q8h insulin lispro, 0-5 Units, subcutaneous, q4h [Held by provider] metoprolol tartrate, 12.5 mg, oral, BID perflutren protein A microsphere, 0.5 mL, intravenous, Once in imaging polyethylene glycol, 17 g, oral, Daily sulfur hexafluoride microsphr, 2 mL, intravenous, Once in imaging [2] fentaNYL, 0-300 mcg/hr, Last Rate: 150 mcg/hr (03/23/25 1448) propofol, 5-50 mcg/kg/min, Last Rate: 15 mcg/kg/min (03/23/25 1400) [3] PRN medications: dextrose, dextrose, fentaNYL, glucagon, glucagon, ipratropium-albuteroL, oxygen Cosigned by Nuno Guillen MD at 03/24/2025 9:21 AM EDT Associated attestation - Nuno Acosta MD - 03/24/2025 9:21 AM EDT Statement of Acuity: This patient was critically ill and required continued critical care treatment. I have personally reviewed and evaluated the most recent data and results, examined the patient, and formulated the plan of care as outlined above. Critical care time is spent at the bedside and/or the immediate area and has included, but is not limited to, the review of diagnostic tests, labs, radiographs, serial assessments of hemodynamics, respiratory status, ventilatory management, and family updates. Teaching and any separately billable procedures are not included in the time calculation. Critical care time = 38 minutes ACUTE HYPOXIC RESP FAILURE SEC TO RT UPPER LOBE COLLAPSE Possible post obstructive pna Rt hilar mass Needing mechanical ventilation FiO2 100% increase since 70% yesterday Plan CXR stat Continue Unasyn to cover post obstructive pna IP consult and procedure pending to stent RUL and staging/biopsy of the Rt hilar mass Routine ICU care Pharmacy Medication History Review Melissa Dubose is a 64 y.o. female admitted for Acute hypoxic respiratory failure. Pharmacy reviewed the patient's qigzq-bv-dsselqcus medications and allergies for accuracy. Medications ADDED: Toprol XL Norvasc Invokana Lidocaine patch Metformin Januvia Aldactone Tizanidine Acetaminophen Medications CHANGED: Entresto 49-51 to 97-103 Medications REMOVED: Jardiance Furosemide Imdur Lopressor The list below reflects the updated BEAM DEPARTMENT SUPERVISOR list. Prior to Admission Medications Prescriptions Last Dose Informant SITagliptin phosphate (Januvia) 100 mg tablet Child Sig: Take 1 tablet (100 mg) by mouth once daily. acetaminophen (Tylenol) 325 mg tablet Child Sig: Take 2 tablets (650 mg) by mouth every 6 hours if needed for mild pain (1 - 3). amLODIPine (Norvasc) 10 mg tablet Child Sig: Take 1 tablet (10 mg) by mouth once daily. apixaban (Eliquis) 5 mg tablet Child Sig: Take 1 tablet (5 mg) by mouth 2 times a day. atorvastatin (Lipitor) 40 mg tablet Child Sig: Take 1 tablet (40 mg) by mouth once daily. canagliflozin (Invokana) 100 mg Child Sig: Take 1 tablet (100 mg) by mouth once daily in the morning. Take before meals. ezetimibe (Zetia) 10 mg tablet Child Sig: Take 1 tablet (10 mg) by mouth once daily. lidocaine (Lidoderm) 5 % patch Child Sig: Place 1 patch on the skin once daily as needed for mild pain (1 - 3). Remove & discard patch within 12 hours or as directed by MD. metFORMIN (Glucophage) 500 mg tablet Child Sig: Take 1 tablet (500 mg) by mouth 2 times daily (morning and late afternoon). metoprolol succinate XL (Toprol-XL) 100 mg 24 hr tablet Child Sig: Take 1 tablet (100 mg) by mouth once daily. Do not crush or chew. pantoprazole (ProtoNix) 40 mg EC tablet Child Sig: Take 1 tablet (40 mg) by mouth once daily in the morning. Take before meals. Do not crush, chew, or split. sacubitriL-valsartan (Entresto) 97-103 mg tablet Child Sig: Take 1 tablet by mouth 2 times a day. spironolactone (Aldactone) 25 mg tablet Child Sig: Take 0.5 tablets (12.5 mg) by mouth once daily. tiZANidine (Zanaflex) 4 mg capsule Child Sig: Take 1 capsule (4 mg) by mouth once daily at bedtime. Facility-Administered Medications: None The list below reflects the updated allergy list. Please review each documented allergy for additional clarification and justification. Allergies Reviewed by Veronica Oconnor PharmD on 03/22/2025 No Known Allergies Patient was unable to be assessed for M2B at discharge. Sources: [facility] Pharmacy dispense history Child - DaughterRhina ([phone])- Good historian Read off patient's prescription vials at home Chart Review Care Everywhere [facility] cardio note from 02/09 Additional Comments: None Veronica Oconnor PharmD Transitions of Care Pharmacist 03/22/25 Secure Chat preferred If no response call [phone] or [employer] Rec documented in this encounter [facility] Work Phone: 04-07-2025 Miscellaneous Notes Problem: Skin Goal: Decreased wound size/increased tissue granulation at next dressing change Outcome: Progressing Goal: Participates in plan/prevention/treatment measures Outcome: Progressing Goal: Prevent/manage excess moisture Outcome: Progressing Goal: Prevent/minimize sheer/friction injuries Outcome: Progressing Goal: Promote/optimize nutrition Outcome: Progressing Goal: Promote skin healing Outcome: Progressing Problem: Nutrition Goal: Nutrient intake appropriate for maintaining nutritional needs Outcome: Progressing Problem: Fall/Injury Goal: Be free from injury by end of the shift Outcome: Progressing Goal: Verbalize understanding of personal risk factors for fall in the hospital Outcome: Progressing Goal: Verbalize understanding of risk factor reduction measures to prevent injury from fall in the home Outcome: Progressing Goal: Use assistive devices by end of the shift Outcome: Progressing Goal: Pace activities to prevent fatigue by end of the shift Outcome: Progressing Problem: Pain Goal: Takes deep breaths with improved pain control throughout the shift Outcome: Progressing Goal: Turns in bed with improved pain control throughout the shift Outcome: Progressing Goal: Walks with improved pain control throughout the shift Outcome: Progressing Goal: Performs ADL's with improved pain control throughout shift Outcome: Progressing Goal: Participates in PT with improved pain control throughout the shift Outcome: Progressing Goal: Free from opioid side effects throughout the shift Outcome: Progressing Goal: Free from acute confusion related to pain meds throughout the shift Outcome: Progressing Problem: Discharge Planning Goal: Discharge to home or other facility with appropriate resources Outcome: Progressing The clinical goals for the shift include pt will remain hds, safe and free from innjury Rapid Response Nurse Note: LUIS alert: 8 Pager time: [phone] Arrival time: 1719 message 1814 follow up Event end time: 1824 Location: [facility] 5 [x] Triage by phone or secure messaging Rapid response initiated by: [] Rapid response RN [] Family [] Nursing Athlete Manager [] Physician [x] RADAR auto page [] Sepsis auto-page [] RN [] RT [] TRANSIT AUTHORITY POLICE OFFICER/PA [] Other: Primary reason for call: [] BAT [] New CPAP/BiPAP [] Bleeding [] Change in mental status [] Chest pain [] Code blue [] FiO2 >/= 50% [] HR </= 40 bpm [] HR >/= 130 bpm [] Hyperglycemia [] Hypoglycemia [x] RADAR [] RR </= 8 bpm [] RR >/= 30 bpm [] SBP </= 90 mmHg [] SpO2 < 90% [] Seizure [] Sepsis [] Shortness of breath [] Staff concern: see comments Initial VS and/or RADAR VS: T 36.9 C; HR 91; RR 16; BP 92/59; SPO2 91%. Providers present at bedside (if applicable): Name of ICU Provider contacted (if applicable): Interventions: [x] None [] ABG/VBG [] Assist w/ICU transfer [] BAT paged [] Bag mask [] Blood [] Cardioversion [] Code Blue [] Code blue for intubation [] Code status changed [] Chest x-ray [] EKG [] IV fluid/bolus [] KUB x-ray [] Labs/cultures [] Medication [] Nebulizer treatment [] NIPPV (CPAP/BiPAP) [] Oxygen [] Oral airway [] Peripheral IV [] Palliative care consult [] CT/MRI [] Sepsis protocol [] Suctioned [] Other: Outcome: [] Coded and [] Code blue for intubation [] Coded and transferred to ICU [] on division [x] Remained on division (no change)cont pulse ox [] Remained on division + additional monitoring [] Remained in ED [] Transferred to ED [] Transferred to ICU [] Transferred to inpatient status [] Transferred for interventions (procedure) [] Transferred to ICU stepdown [] Transferred to surgery [] Transferred to telemetry [] Sepsis protocol [] STEMI protocol [] Stroke protocol [x] Bedside nurse instructed to page rapid response for any concerns or acute change in condition/VS Additional Comments: RADAR alert -score of 8. Initial VS review via message with bedside nurse- no immediate concerns. Pt has had some softer BP's. Upon arrival for follow up- VS rechecked and BP 116/79 and pulse ox 96% on 1L NC HF. Pt with no complaints. Updated with bedside nurse and pt probable plan for discharge to nursing facility tomorrow and will remain on the floor with cont pulse ox for continued plan of care. Patient afebrile. Vitals stable. Minimal pain. Some nausea. No vomiting. Will discharge tomorrow. Will continue to monitor. The patient's goals for the shift include Remain hemodynamically stable The clinical goals for the shift include free from falls, HDS Over the shift, the patient did not make progress toward the following goals. Barriers to progression include . Recommendations to address these barriers include . Problem: Discharge Planning Goal: Discharge to home or other facility with appropriate resources Outcome: Progressing Problem: Chronic Conditions and Co-morbidities Goal: Patient's chronic conditions and co-morbidity symptoms are monitored and maintained or improved Outcome: Progressing Problem: Nutrition Goal: Nutrient intake appropriate for maintaining nutritional needs Outcome: Progressing Problem: Skin Goal: Decreased wound size/increased tissue granulation at next dressing change Outcome: Progressing Goal: Participates in plan/prevention/treatment measures Outcome: Progressing Goal: Prevent/manage excess moisture Outcome: Progressing Goal: Prevent/minimize sheer/friction injuries Outcome: Progressing Goal: Promote/optimize nutrition Outcome: Progressing Goal: Promote skin healing Outcome: Progressing Problem: Fall/Injury Goal: Be free from injury by end of the shift Outcome: Progressing Goal: Verbalize understanding of personal risk factors for fall in the hospital Outcome: Progressing Goal: Verbalize understanding of risk factor reduction measures to prevent injury from fall in the home Outcome: Progressing Goal: Use assistive devices by end of the shift Outcome: Progressing Goal: Pace activities to prevent fatigue by end of the shift Outcome: Progressing Problem: Knowledge Deficit Goal: Patient/family/caregiver demonstrates understanding of disease process, treatment plan, medications, and discharge instructions Outcome: Progressing Problem: Mechanical Ventilation Goal: Patient Will Maintain Patent Airway Outcome: Progressing Goal: Oral health is maintained or improved Outcome: Progressing Goal: Tracheostomy will be managed safely Outcome: Progressing Goal: ET tube will be managed safely Outcome: Progressing Goal: Ability to express needs and understand communication Outcome: Progressing Goal: Mobility/activity is maintained at optimum level for patient Outcome: Progressing Problem: Safety - Medical Restraint Goal: Free from restraint(s) (Restraint for Interference with Electric Shovel Operator) Outcome: Progressing Goal: Remains free of injury from restraints (Restraint for Interference with Electric Shovel Operator) Outcome: Progressing Problem: Pain Goal: Takes deep breaths with improved pain control throughout the shift Outcome: Progressing Goal: Turns in bed with improved pain control throughout the shift Outcome: Progressing Goal: Walks with improved pain control throughout the shift Outcome: Progressing Goal: Performs ADL's with improved pain control throughout shift Outcome: Progressing Goal: Participates in PT with improved pain control throughout the shift Outcome: Progressing Goal: Free from opioid side effects throughout the shift Outcome: Progressing Goal: Free from acute confusion related to pain meds throughout the shift Outcome: Progressing Problem: Diabetes Goal: Achieve decreasing blood glucose levels by end of shift Outcome: Progressing Goal: Increase stability of blood glucose readings by end of shift Outcome: Progressing Goal: Decrease in ketones present in urine by end of shift Outcome: Progressing Goal: Maintain electrolyte levels within acceptable range throughout shift Outcome: Progressing Goal: Maintain glucose levels >70mg/dl to <250mg/dl throughout shift Outcome: Progressing Goal: No changes in neurological exam by end of shift Outcome: Progressing Goal: Learn about and adhere to nutrition recommendations by end of shift Outcome: Progressing Goal: Vital signs within normal range for age by end of shift Outcome: Progressing Goal: Increase self care and/or family involovement by end of shift Outcome: Progressing Goal: Receive DSME education by end of shift Outcome: Progressing The patient's goals for the shift include Remain hemodynamically stable The clinical goals for the shift include pain control, IS use Over the shift, the patient did not make progress toward the following goals. Barriers to progression include . Recommendations to address these barriers include . Problem: Discharge Planning Goal: Discharge to home or other facility with appropriate resources Outcome: Progressing Problem: Chronic Conditions and Co-morbidities Goal: Patient's chronic conditions and co-morbidity symptoms are monitored and maintained or improved Outcome: Progressing Problem: Nutrition Goal: Nutrient intake appropriate for maintaining nutritional needs Outcome: Progressing Problem: Skin Goal: Decreased wound size/increased tissue granulation at next dressing change Outcome: Progressing Goal: Participates in plan/prevention/treatment measures Outcome: Progressing Goal: Prevent/manage excess moisture Outcome: Progressing Goal: Prevent/minimize sheer/friction injuries Outcome: Progressing Goal: Promote/optimize nutrition Outcome: Progressing Goal: Promote skin healing Outcome: Progressing Problem: Fall/Injury Goal: Be free from injury by end of the shift Outcome: Progressing Goal: Verbalize understanding of personal risk factors for fall in the hospital Outcome: Progressing Goal: Verbalize understanding of risk factor reduction measures to prevent injury from fall in the home Outcome: Progressing Goal: Use assistive devices by end of the shift Outcome: Progressing Goal: Pace activities to prevent fatigue by end of the shift Outcome: Progressing Problem: Knowledge Deficit Goal: Patient/family/caregiver demonstrates understanding of disease process, treatment plan, medications, and discharge instructions Outcome: Progressing Problem: Mechanical Ventilation Goal: Patient Will Maintain Patent Airway Outcome: Progressing Goal: Oral health is maintained or improved Outcome: Progressing Goal: Tracheostomy will be managed safely Outcome: Progressing Goal: ET tube will be managed safely Outcome: Progressing Goal: Ability to express needs and understand communication Outcome: Progressing Goal: Mobility/activity is maintained at optimum level for patient Outcome: Progressing Problem: Safety - Medical Restraint Goal: Free from restraint(s) (Restraint for Interference with Electric Shovel Operator) Outcome: Progressing Goal: Remains free of injury from restraints (Restraint for Interference with Electric Shovel Operator) Outcome: Progressing Problem: Pain Goal: Takes deep breaths with improved pain control throughout the shift Outcome: Progressing Goal: Turns in bed with improved pain control throughout the shift Outcome: Progressing Goal: Walks with improved pain control throughout the shift Outcome: Progressing Goal: Performs ADL's with improved pain control throughout shift Outcome: Progressing Goal: Participates in PT with improved pain control throughout the shift Outcome: Progressing Goal: Free from opioid side effects throughout the shift Outcome: Progressing Goal: Free from acute confusion related to pain meds throughout the shift Outcome: Progressing Problem: Diabetes Goal: Achieve decreasing blood glucose levels by end of shift Outcome: Progressing Goal: Increase stability of blood glucose readings by end of shift Outcome: Progressing Goal: Decrease in ketones present in urine by end of shift Outcome: Progressing Goal: Maintain electrolyte levels within acceptable range throughout shift Outcome: Progressing Goal: Maintain glucose levels >70mg/dl to <250mg/dl throughout shift Outcome: Progressing Goal: No changes in neurological exam by end of shift Outcome: Progressing Goal: Learn about and adhere to nutrition recommendations by end of shift Outcome: Progressing Goal: Vital signs within normal range for age by end of shift Outcome: Progressing Goal: Increase self care and/or family involovement by end of shift Outcome: Progressing Goal: Receive DSME education by end of shift Outcome: Progressing Problem: Discharge Planning Goal: Discharge to home or other facility with appropriate resources Outcome: Progressing Problem: Chronic Conditions and Co-morbidities Goal: Patient's chronic conditions and co-morbidity symptoms are monitored and maintained or improved Outcome: Progressing Problem: Nutrition Goal: Nutrient intake appropriate for maintaining nutritional needs Outcome: Progressing Problem: Skin Goal: Decreased wound size/increased tissue granulation at next dressing change Outcome: Progressing Goal: Participates in plan/prevention/treatment measures Outcome: Progressing Goal: Prevent/manage excess moisture Outcome: Progressing Goal: Prevent/minimize sheer/friction injuries Outcome: Progressing Goal: Promote/optimize nutrition Outcome: Progressing Goal: Promote skin healing Outcome: Progressing Problem: Fall/Injury Goal: Be free from injury by end of the shift Outcome: Progressing Goal: Verbalize understanding of personal risk factors for fall in the hospital Outcome: Progressing Goal: Verbalize understanding of risk factor reduction measures to prevent injury from fall in the home Outcome: Progressing Goal: Use assistive devices by end of the shift Outcome: Progressing Goal: Pace activities to prevent fatigue by end of the shift Outcome: Progressing Problem: Knowledge Deficit Goal: Patient/family/caregiver demonstrates understanding of disease process, treatment plan, medications, and discharge instructions Outcome: Progressing Problem: Mechanical Ventilation Goal: Patient Will Maintain Patent Airway Outcome: Progressing Goal: Oral health is maintained or improved Outcome: Progressing Goal: Tracheostomy will be managed safely Outcome: Progressing Goal: ET tube will be managed safely Outcome: Progressing Goal: Ability to express needs and understand communication Outcome: Progressing Goal: Mobility/activity is maintained at optimum level for patient Outcome: Progressing Problem: Safety - Medical Restraint Goal: Free from restraint(s) (Restraint for Interference with Electric Shovel Operator) Outcome: Progressing Goal: Remains free of injury from restraints (Restraint for Interference with Electric Shovel Operator) Outcome: Progressing Problem: Pain Goal: Takes deep breaths with improved pain control throughout the shift Outcome: Progressing Goal: Turns in bed with improved pain control throughout the shift Outcome: Progressing Goal: Walks with improved pain control throughout the shift Outcome: Progressing Goal: Performs ADL's with improved pain control throughout shift Outcome: Progressing Goal: Participates in PT with improved pain control throughout the shift Outcome: Progressing Goal: Free from opioid side effects throughout the shift Outcome: Progressing Goal: Free from acute confusion related to pain meds throughout the shift Outcome: Progressing Problem: Diabetes Goal: Achieve decreasing blood glucose levels by end of shift Outcome: Progressing Goal: Increase stability of blood glucose readings by end of shift Outcome: Progressing Goal: Decrease in ketones present in urine by end of shift Outcome: Progressing Goal: Maintain electrolyte levels within acceptable range throughout shift Outcome: Progressing Goal: Maintain glucose levels >70mg/dl to <250mg/dl throughout shift Outcome: Progressing Goal: No changes in neurological exam by end of shift Outcome: Progressing Goal: Learn about and adhere to nutrition recommendations by end of shift Outcome: Progressing Goal: Vital signs within normal range for age by end of shift Outcome: Progressing Goal: Increase self care and/or family involovement by end of shift Outcome: Progressing Goal: Receive DSME education by end of shift Outcome: Progressing The patient's goals for the shift include Remain hemodynamically stable The clinical goals for the shift include pt will remain HDS thru shift Problem: Discharge Planning Goal: Discharge to home or other facility with appropriate resources Outcome: Progressing Problem: Chronic Conditions and Co-morbidities Goal: Patient's chronic conditions and co-morbidity symptoms are monitored and maintained or improved Outcome: Progressing Problem: Nutrition Goal: Nutrient intake appropriate for maintaining nutritional needs Outcome: Progressing Problem: Skin Goal: Decreased wound size/increased tissue granulation at next dressing change Outcome: Progressing Flowsheets (Taken 04/03/20252126) Decreased wound size/increased tissue granulation at next dressing change: Promote sleep for wound healing Protective dressings over bony prominences Goal: Participates in plan/prevention/treatment measures Outcome: Progressing Flowsheets (Taken 04/03/20252126) Participates in plan/prevention/treatment measures: Elevate heels Discuss with provider PT/OT consult Goal: Prevent/manage excess moisture Outcome: Progressing Flowsheets (Taken 04/03/20252126) Prevent/manage excess moisture: Monitor for/manage infection if present Cleanse incontinence/protect with barrier cream Goal: Prevent/minimize sheer/friction injuries Outcome: Progressing Flowsheets (Taken 04/03/20252126) Prevent/minimize sheer/friction injuries: Increase activity/out of bed for meals Use pull sheet Goal: Promote/optimize nutrition Outcome: Progressing Flowsheets (Taken 04/03/20252126) Promote/optimize nutrition: Monitor/record intake including meals Goal: Promote skin healing Outcome: Progressing Flowsheets (Taken 04/03/20252126) Promote skin healing: Assess skin/pad under line(s)/device(s) Protective dressings over bony prominences Turn/reposition every 2 hours/use positioning/transfer devices Problem: Fall/Injury Goal: Be free from injury by end of the shift Outcome: Progressing Goal: Verbalize understanding of personal risk factors for fall in the hospital Outcome: Progressing Goal: Verbalize understanding of risk factor reduction measures to prevent injury from fall in the home Outcome: Progressing Goal: Use assistive devices by end of the shift Outcome: Progressing Goal: Pace activities to prevent fatigue by end of the shift Outcome: Progressing The patient's goals for the shift include Remain hemodynamically stable The clinical goals for the shift include pt will remain hds thru shift Over the shift, the patient did not make progress toward the following goals. Barriers to progression include . Recommendations to address these barriers include Problem: Discharge Planning Goal: Discharge to home or other facility with appropriate resources Outcome: Progressing Problem: Chronic Conditions and Co-morbidities Goal: Patient's chronic conditions and co-morbidity symptoms are monitored and maintained or improved Outcome: Progressing Problem: Nutrition Goal: Nutrient intake appropriate for maintaining nutritional needs Outcome: Progressing Problem: Skin Goal: Decreased wound size/increased tissue granulation at next dressing change Outcome: Progressing Goal: Participates in plan/prevention/treatment measures Outcome: Progressing Goal: Prevent/manage excess moisture Outcome: Progressing Goal: Prevent/minimize sheer/friction injuries Outcome: Progressing Goal: Promote/optimize nutrition Outcome: Progressing Goal: Promote skin healing Outcome: Progressing Problem: Fall/Injury Goal: Be free from injury by end of the shift Outcome: Progressing Goal: Verbalize understanding of personal risk factors for fall in the hospital Outcome: Progressing Goal: Verbalize understanding of risk factor reduction measures to prevent injury from fall in the home Outcome: Progressing Goal: Use assistive devices by end of the shift Outcome: Progressing Goal: Pace activities to prevent fatigue by end of the shift Outcome: Progressing Problem: Knowledge Deficit Goal: Patient/family/caregiver demonstrates understanding of disease process, treatment plan, medications, and discharge instructions Outcome: Progressing Problem: Mechanical Ventilation Goal: Patient Will Maintain Patent Airway Outcome: Progressing Goal: Oral health is maintained or improved Outcome: Progressing Goal: Tracheostomy will be managed safely Outcome: Progressing Goal: ET tube will be managed safely Outcome: Progressing Goal: Ability to express needs and understand communication Outcome: Progressing Goal: Mobility/activity is maintained at optimum level for patient Outcome: Progressing Problem: Safety - Medical Restraint Goal: Free from restraint(s) (Restraint for Interference with Electric Shovel Operator) Outcome: Progressing Goal: Remains free of injury from restraints (Restraint for Interference with Electric Shovel Operator) Outcome: Progressing Problem: Pain Goal: Takes deep breaths with improved pain control throughout the shift Outcome: Progressing Goal: Turns in bed with improved pain control throughout the shift Outcome: Progressing Goal: Walks with improved pain control throughout the shift Outcome: Progressing Goal: Performs ADL's with improved pain control throughout shift Outcome: Progressing Goal: Participates in PT with improved pain control throughout the shift Outcome: Progressing Goal: Free from opioid side effects throughout the shift Outcome: Progressing Goal: Free from acute confusion related to pain meds throughout the shift Outcome: Progressing Problem: Diabetes Goal: Achieve decreasing blood glucose levels by end of shift Outcome: Progressing Goal: Increase stability of blood glucose readings by end of shift Outcome: Progressing Goal: Decrease in ketones present in urine by end of shift Outcome: Progressing Goal: Maintain electrolyte levels within acceptable range throughout shift Outcome: Progressing Goal: Maintain glucose levels >70mg/dl to <250mg/dl throughout shift Outcome: Progressing Goal: No changes in neurological exam by end of shift Outcome: Progressing Goal: Learn about and adhere to nutrition recommendations by end of shift Outcome: Progressing Goal: Vital signs within normal range for age by end of shift Outcome: Progressing Goal: Increase self care and/or family involovement by end of shift Outcome: Progressing Goal: Receive DSME education by end of shift Outcome: Progressing Problem: Discharge Planning Goal: Discharge to home or other facility with appropriate resources Outcome: Progressing Problem: Chronic Conditions and Co-morbidities Goal: Patient's chronic conditions and co-morbidity symptoms are monitored and maintained or improved Outcome: Progressing Problem: Nutrition Goal: Nutrient intake appropriate for maintaining nutritional needs Outcome: Progressing Problem: Skin Goal: Decreased wound size/increased tissue granulation at next dressing change Outcome: Progressing Goal: Participates in plan/prevention/treatment measures Outcome: Progressing Goal: Prevent/manage excess moisture Outcome: Progressing Goal: Prevent/minimize sheer/friction injuries Outcome: Progressing Goal: Promote/optimize nutrition Outcome: Progressing Goal: Promote skin healing Outcome: Progressing Problem: Fall/Injury Goal: Be free from injury by end of the shift Outcome: Progressing Goal: Verbalize understanding of personal risk factors for fall in the hospital Outcome: Progressing Goal: Verbalize understanding of risk factor reduction measures to prevent injury from fall in the home Outcome: Progressing Goal: Use assistive devices by end of the shift Outcome: Progressing Goal: Pace activities to prevent fatigue by end of the shift Outcome: Progressing Problem: Knowledge Deficit Goal: Patient/family/caregiver demonstrates understanding of disease process, treatment plan, medications, and discharge instructions Outcome: Progressing Problem: Mechanical Ventilation Goal: Patient Will Maintain Patent Airway Outcome: Progressing Goal: Oral health is maintained or improved Outcome: Progressing Goal: Tracheostomy will be managed safely Outcome: Progressing Goal: ET tube will be managed safely Outcome: Progressing Goal: Ability to express needs and understand communication Outcome: Progressing Goal: Mobility/activity is maintained at optimum level for patient Outcome: Progressing Problem: Safety - Medical Restraint Goal: Free from restraint(s) (Restraint for Interference with Electric Shovel Operator) Outcome: Progressing Goal: Remains free of injury from restraints (Restraint for Interference with Electric Shovel Operator) Outcome: Progressing Problem: Pain Goal: Takes deep breaths with improved pain control throughout the shift Outcome: Progressing Goal: Turns in bed with improved pain control throughout the shift Outcome: Progressing Goal: Walks with improved pain control throughout the shift Outcome: Progressing Goal: Performs ADL's with improved pain control throughout shift Outcome: Progressing Goal: Participates in PT with improved pain control throughout the shift Outcome: Progressing Goal: Free from opioid side effects throughout the shift Outcome: Progressing Goal: Free from acute confusion related to pain meds throughout the shift Outcome: Progressing Problem: Diabetes Goal: Achieve decreasing blood glucose levels by end of shift Outcome: Progressing Goal: Increase stability of blood glucose readings by end of shift Outcome: Progressing Goal: Decrease in ketones present in urine by end of shift Outcome: Progressing Goal: Maintain electrolyte levels within acceptable range throughout shift Outcome: Progressing Goal: Maintain glucose levels >70mg/dl to <250mg/dl throughout shift Outcome: Progressing Goal: No changes in neurological exam by end of shift Outcome: Progressing Goal: Learn about and adhere to nutrition recommendations by end of shift Outcome: Progressing Goal: Vital signs within normal range for age by end of shift Outcome: Progressing Goal: Increase self care and/or family involovement by end of shift Outcome: Progressing Goal: Receive DSME education by end of shift Outcome: Progressing . The patient's goals for the shift include Remain hemodynamically stable The clinical goals for the shift include Free from falls and/or injuries; adequate pain relief; HDS and VSS Over the shift, the patient did not make progress toward the following goals. Barriers to progression include Problem: Skin Goal: Decreased wound size/increased tissue granulation at next dressing change 04/02/20251836 by Freddy Mercado RN Outcome: Progressing 04/02/20251835 by Freddy Mercado RN Outcome: Progressing Goal: Participates in plan/prevention/treatment measures 04/02/20251836 by Freddy Mercado RN Outcome: Progressing 04/02/20251835 by Freddy Mercado RN Outcome: Progressing Goal: Prevent/manage excess moisture 04/02/20251836 by Freddy Mercado RN Outcome: Progressing 04/02/20251835 by Freddy Mercado RN Outcome: Progressing Goal: Prevent/minimize sheer/friction injuries 04/02/20251836 by Freddy Mercado RN Outcome: Progressing 04/02/20251835 by Freddy Mercado RN Outcome: Progressing Goal: Promote/optimize nutrition 04/02/20251836 by Freddy Mercado RN Outcome: Progressing 04/02/20251835 by Freddy Mercado RN Outcome: Progressing Goal: Promote skin healing 04/02/20251836 by rFeddy Mercado RN Outcome: Progressing 04/02/20251835 by Freddy Mercado RN Outcome: Progressing Problem: Skin Goal: Decreased wound size/increased tissue granulation at next dressing change 04/02/20251836 by Freddy Mercado RN Outcome: Progressing 04/02/20251835 by Freddy Mercado RN Outcome: Progressing . Recommendations to address these barriers include . The patient's goals for the shift include Remain hemodynamically stable The clinical goals for the shift include Free from falls and/or injuries; adequate pain relief; HDS and VSS Over the shift, the patient did not make progress toward the following goals. Barriers to progression include . Recommendations to address these barriers include Problem: Discharge Planning Goal: Discharge to home or other facility with appropriate resources Outcome: Progressing Problem: Chronic Conditions and Co-morbidities Goal: Patient's chronic conditions and co-morbidity symptoms are monitored and maintained or improved Outcome: Progressing Problem: Nutrition Goal: Nutrient intake appropriate for maintaining nutritional needs Outcome: Progressing Problem: Skin Goal: Decreased wound size/increased tissue granulation at next dressing change Outcome: Progressing Goal: Participates in plan/prevention/treatment measures Outcome: Progressing Goal: Prevent/manage excess moisture Outcome: Progressing Goal: Prevent/minimize sheer/friction injuries Outcome: Progressing Goal: Promote/optimize nutrition Outcome: Progressing Goal: Promote skin healing Outcome: Progressing Problem: Fall/Injury Goal: Be free from injury by end of the shift Outcome: Progressing Goal: Verbalize understanding of personal risk factors for fall in the hospital Outcome: Progressing Goal: Verbalize understanding of risk factor reduction measures to prevent injury from fall in the home Outcome: Progressing Goal: Use assistive devices by end of the shift Outcome: Progressing Goal: Pace activities to prevent fatigue by end of the shift Outcome: Progressing Problem: Knowledge Deficit Goal: Patient/family/caregiver demonstrates understanding of disease process, treatment plan, medications, and discharge instructions Outcome: Progressing Problem: Mechanical Ventilation Goal: Patient Will Maintain Patent Airway Outcome: Progressing Goal: Oral health is maintained or improved Outcome: Progressing Goal: Tracheostomy will be managed safely Outcome: Progressing Goal: ET tube will be managed safely Outcome: Progressing Goal: Ability to express needs and understand communication Outcome: Progressing Goal: Mobility/activity is maintained at optimum level for patient Outcome: Progressing Problem: Safety - Medical Restraint Goal: Free from restraint(s) (Restraint for Interference with Electric Shovel Operator) Outcome: Progressing Goal: Remains free of injury from restraints (Restraint for Interference with Electric Shovel Operator) Outcome: Progressing Problem: Pain Goal: Takes deep breaths with improved pain control throughout the shift Outcome: Progressing Goal: Turns in bed with improved pain control throughout the shift Outcome: Progressing Goal: Walks with improved pain control throughout the shift Outcome: Progressing Goal: Performs ADL's with improved pain control throughout shift Outcome: Progressing Goal: Participates in PT with improved pain control throughout the shift Outcome: Progressing Goal: Free from opioid side effects throughout the shift Outcome: Progressing Goal: Free from acute confusion related to pain meds throughout the shift Outcome: Progressing Problem: Diabetes Goal: Achieve decreasing blood glucose levels by end of shift Outcome: Progressing Goal: Increase stability of blood glucose readings by end of shift Outcome: Progressing Goal: Decrease in ketones present in urine by end of shift Outcome: Progressing Goal: Maintain electrolyte levels within acceptable range throughout shift Outcome: Progressing Goal: Maintain glucose levels >70mg/dl to <250mg/dl throughout shift Outcome: Progressing Goal: No changes in neurological exam by end of shift Outcome: Progressing Goal: Learn about and adhere to nutrition recommendations by end of shift Outcome: Progressing Goal: Vital signs within normal range for age by end of shift Outcome: Progressing Goal: Increase self care and/or family involovement by end of shift Outcome: Progressing Goal: Receive DSME education by end of shift Outcome: Progressing Problem: Diabetes Goal: Achieve decreasing blood glucose levels by end of shift Outcome: Progressing Goal: Increase stability of blood glucose readings by end of shift Outcome: Progressing Goal: Decrease in ketones present in urine by end of shift Outcome: Progressing Goal: Maintain electrolyte levels within acceptable range throughout shift Outcome: Progressing Goal: Maintain glucose levels >70mg/dl to <250mg/dl throughout shift Outcome: Progressing Goal: No changes in neurological exam by end of shift Outcome: Progressing Goal: Learn about and adhere to nutrition recommendations by end of shift Outcome: Progressing Goal: Vital signs within normal range for age by end of shift Outcome: Progressing Goal: Increase self care and/or family involovement by end of shift Outcome: Progressing Goal: Receive DSME education by end of shift Outcome: Progressing Problem: Pain Goal: Takes deep breaths with improved pain control throughout the shift Outcome: Progressing Goal: Turns in bed with improved pain control throughout the shift Outcome: Progressing Goal: Walks with improved pain control throughout the shift Outcome: Progressing Goal: Performs ADL's with improved pain control throughout shift Outcome: Progressing Goal: Participates in PT with improved pain control throughout the shift Outcome: Progressing Goal: Free from opioid side effects throughout the shift Outcome: Progressing Goal: Free from acute confusion related to pain meds throughout the shift Outcome: Progressing Problem: Safety - Medical Restraint Goal: Free from restraint(s) (Restraint for Interference with Electric Shovel Operator) Outcome: Progressing Goal: Remains free of injury from restraints (Restraint for Interference with Electric Shovel Operator) Outcome: Progressing Problem: Mechanical Ventilation Goal: Patient Will Maintain Patent Airway Outcome: Progressing Goal: Oral health is maintained or improved Outcome: Progressing Goal: Tracheostomy will be managed safely Outcome: Progressing Goal: ET tube will be managed safely Outcome: Progressing Goal: Ability to express needs and understand communication Outcome: Progressing Goal: Mobility/activity is maintained at optimum level for patient Outcome: Progressing Problem: Knowledge Deficit Goal: Patient/family/caregiver demonstrates understanding of disease process, treatment plan, medications, and discharge instructions Outcome: Progressing Problem: Fall/Injury Goal: Be free from injury by end of the shift Outcome: Progressing Goal: Verbalize understanding of personal risk factors for fall in the hospital Outcome: Progressing Goal: Verbalize understanding of risk factor reduction measures to prevent injury from fall in the home Outcome: Progressing Goal: Use assistive devices by end of the shift Outcome: Progressing Goal: Pace activities to prevent fatigue by end of the shift Outcome: Progressing Problem: Skin Goal: Decreased wound size/increased tissue granulation at next dressing change Outcome: Progressing Goal: Participates in plan/prevention/treatment measures Outcome: Progressing Goal: Prevent/manage excess moisture Outcome: Progressing Goal: Prevent/minimize sheer/friction injuries Outcome: Progressing Goal: Promote/optimize nutrition Outcome: Progressing Goal: Promote skin healing Outcome: Progressing Problem: Nutrition Goal: Nutrient intake appropriate for maintaining nutritional needs Outcome: Progressing Problem: Chronic Conditions and Co-morbidities Goal: Patient's chronic conditions and co-morbidity symptoms are monitored and maintained or improved Outcome: Progressing Problem: Discharge Planning Goal: Discharge to home or other facility with appropriate resources Outcome: Progressing . .Rapid Response Nurse Note: RADAR alert: 7 Pager time: 1237 Arrival time: 1240 Event end time: 1250 Location: [place] [id number] [] Triage by phone or secure messaging Rapid response initiated by: [] Rapid response RN [] Family [] Nursing Athlete Manager [] Physician [x] RADAR auto page [] Sepsis auto-page [] RN [] RT [] TR[employer]IT [employer] POLICE OFFICER/PA [] Other: Primary reason for call: [] BAT [] New CPAP/BiPAP [] Bleeding [] Change in mental status [] Chest pain [] Code blue [] FiO2 >/= 50% [] HR </= 40 bpm [] HR >/= 130 bpm [] Hyperglycemia [] Hypoglycemia [x] RADAR [] RR </= 8 bpm [] RR >/= 30 bpm [] SBP </= 90 mmHg [] SpO2 < 90% [] Seizure [] Sepsis [] Shortness of breath [] Staff concern: see comments Initial VS and/or RADAR VS: T 36.4 C; HR 72; RR 116; BP 131/84; SPO2 93%. Interventions: [x] None [] ABG/VBG [] Assist w/ICU transfer [] BAT paged [] Bag mask [] Blood [] Cardioversion [] Code Blue [] Code blue for intubation [] Code status changed [] Chest x-ray [] EKG [] IV fluid/bolus [] KUB x-ray [] Labs/cultures [] Medication [] Nebulizer treatment [] NIPPV (CPAP/BiPAP) [] Oxygen [] Oral airway [] Peripheral IV [] Palliative care consult [] CT/MRI [] Sepsis protocol [] Suctioned [] Other: Outcome: [] Coded and [] Code blue for intubation [] Coded and transferred to ICU [] on division [x] Remained on division (no change) [] Remained on division + additional monitoring [] Remained in ED [] Transferred to ED [] Transferred to ICU [] Transferred to inpatient status [] Transferred for interventions (procedure) [] Transferred to ICU stepdown [] Transferred to surgery [] Transferred to telemetry [] Sepsis protocol [] STEMI protocol [] Stroke protocol [x] Bedside nurse instructed to page rapid response for any concerns or acute change in condition/VS Additional Comments: LUIS 7 Bedside RN notified of RADAR page and vital signs associated with it. Per bedside RN, Respiratory Rate charted in error and was supposed to be charted as 16 instead of 116. No concerns at this time noted. Notified Staff to page Rapid Response with any concerns or changes in patient's condition. The patient's goals for the shift include Remain hemodynamically stable The clinical goals for the shift include Free from falls and/or injuries; adequate pain relief; HDS and VSS Problem: Discharge Planning Goal: Discharge to home or other facility with appropriate resources Outcome: Progressing Problem: Chronic Conditions and Co-morbidities Goal: Patient's chronic conditions and co-morbidity symptoms are monitored and maintained or improved Outcome: Progressing Problem: Nutrition Goal: Nutrient intake appropriate for maintaining nutritional needs Outcome: Progressing Problem: Skin Goal: Decreased wound size/increased tissue granulation at next dressing change Outcome: Progressing Goal: Participates in plan/prevention/treatment measures Outcome: Progressing Goal: Prevent/manage excess moisture Outcome: Progressing Goal: Prevent/minimize sheer/friction injuries Outcome: Progressing Goal: Promote/optimize nutrition Outcome: Progressing Goal: Promote skin healing Outcome: Progressing Problem: Fall/Injury Goal: Be free from injury by end of the shift Outcome: Progressing Goal: Verbalize understanding of personal risk factors for fall in the hospital Outcome: Progressing Goal: Verbalize understanding of risk factor reduction measures to prevent injury from fall in the home Outcome: Progressing Goal: Use assistive devices by end of the shift Outcome: Progressing Goal: Pace activities to prevent fatigue by end of the shift Outcome: Progressing Problem: Knowledge Deficit Goal: Patient/family/caregiver demonstrates understanding of disease process, treatment plan, medications, and discharge instructions Outcome: Progressing Problem: Mechanical Ventilation Goal: Patient Will Maintain Patent Airway Outcome: Progressing Goal: Oral health is maintained or improved Outcome: Progressing Goal: Tracheostomy will be managed safely Outcome: Progressing Goal: ET tube will be managed safely Outcome: Progressing Goal: Ability to express needs and understand communication Outcome: Progressing Goal: Mobility/activity is maintained at optimum level for patient Outcome: Progressing Problem: Safety - Medical Restraint Goal: Free from restraint(s) (Restraint for Interference with Electric Shovel Operator) Outcome: Progressing Goal: Remains free of injury from restraints (Restraint for Interference with Electric Shovel Operator) Outcome: Progressing Problem: Pain Goal: Takes deep breaths with improved pain control throughout the shift Outcome: Progressing Goal: Turns in bed with improved pain control throughout the shift Outcome: Progressing Goal: Walks with improved pain control throughout the shift Outcome: Progressing Goal: Performs ADL's with improved pain control throughout shift Outcome: Progressing Goal: Participates in PT with improved pain control throughout the shift Outcome: Progressing Goal: Free from opioid side effects throughout the shift Outcome: Progressing Goal: Free from acute confusion related to pain meds throughout the shift Outcome: Progressing Problem: Diabetes Goal: Achieve decreasing blood glucose levels by end of shift Outcome: Progressing Goal: Increase stability of blood glucose readings by end of shift Outcome: Progressing Goal: Decrease in ketones present in urine by end of shift Outcome: Progressing Goal: Maintain electrolyte levels within acceptable range throughout shift Outcome: Progressing Goal: Maintain glucose levels >70mg/dl to <250mg/dl throughout shift Outcome: Progressing Goal: No changes in neurological exam by end of shift Outcome: Progressing Goal: Learn about and adhere to nutrition recommendations by end of shift Outcome: Progressing Goal: Vital signs within normal range for age by end of shift Outcome: Progressing Goal: Increase self care and/or family involovement by end of shift Outcome: Progressing Goal: Receive DSME education by end of shift Outcome: Progressing Discussed with the patient the anticipatory management plan for her known large pneumothorax. In the worst-case scenario, she may experience respiratory decompensation requiring chest tube placement. If imaging shows an increase in pneumothorax size or if her symptoms worsen, the MICU fellow will first attempt to place a pigtail chest tube at her bedside if feasible. Should ICU escalation be necessary, she consents to transfer. She has also requested care exclusively from female nurses and to avoid one specific male nurse. The patient agrees with this plan and understands the risks of delaying treatment (i.e, declining transfer to ICU if indicated), including injury and . The bedside RN has communicated these nursing preferences to the MICU nursing agency manager. Problem: Discharge Planning Goal: Discharge to home or other facility with appropriate resources Outcome: Progressing Problem: Chronic Conditions and Co-morbidities Goal: Patient's chronic conditions and co-morbidity symptoms are monitored and maintained or improved Outcome: Progressing Problem: Nutrition Goal: Nutrient intake appropriate for maintaining nutritional needs Outcome: Progressing Problem: Skin Goal: Decreased wound size/increased tissue granulation at next dressing change Outcome: Progressing Goal: Participates in plan/prevention/treatment measures Outcome: Progressing Goal: Prevent/manage excess moisture Outcome: Progressing Goal: Prevent/minimize sheer/friction injuries Outcome: Progressing Goal: Promote/optimize nutrition Outcome: Progressing Goal: Promote skin healing Outcome: Progressing Problem: Fall/Injury Goal: Be free from injury by end of the shift Outcome: Progressing Goal: Verbalize understanding of personal risk factors for fall in the hospital Outcome: Progressing Goal: Verbalize understanding of risk factor reduction measures to prevent injury from fall in the home Outcome: Progressing Goal: Use assistive devices by end of the shift Outcome: Progressing Goal: Pace activities to prevent fatigue by end of the shift Outcome: Progressing Problem: Knowledge Deficit Goal: Patient/family/caregiver demonstrates understanding of disease process, treatment plan, medications, and discharge instructions Outcome: Progressing Problem: Mechanical Ventilation Goal: Patient Will Maintain Patent Airway Outcome: Progressing Goal: Oral health is maintained or improved Outcome: Progressing Goal: Tracheostomy will be managed safely Outcome: Progressing Goal: ET tube will be managed safely Outcome: Progressing Goal: Ability to express needs and understand communication Outcome: Progressing Goal: Mobility/activity is maintained at optimum level for patient Outcome: Progressing Problem: Safety - Medical Restraint Goal: Free from restraint(s) (Restraint for Interference with Electric Shovel Operator) Outcome: Progressing Goal: Remains free of injury from restraints (Restraint for Interference with Electric Shovel Operator) Outcome: Progressing Problem: Pain Goal: Takes deep breaths with improved pain control throughout the shift Outcome: Progressing Goal: Turns in bed with improved pain control throughout the shift Outcome: Progressing Goal: Walks with improved pain control throughout the shift Outcome: Progressing Goal: Performs ADL's with improved pain control throughout shift Outcome: Progressing Goal: Participates in PT with improved pain control throughout the shift Outcome: Progressing Goal: Free from opioid side effects throughout the shift Outcome: Progressing Goal: Free from acute confusion related to pain meds throughout the shift Outcome: Progressing Problem: Diabetes Goal: Achieve decreasing blood glucose levels by end of shift Outcome: Progressing Goal: Increase stability of blood glucose readings by end of shift Outcome: Progressing Goal: Decrease in ketones present in urine by end of shift Outcome: Progressing Goal: Maintain electrolyte levels within acceptable range throughout shift Outcome: Progressing Goal: Maintain glucose levels >70mg/dl to <250mg/dl throughout shift Outcome: Progressing Goal: No changes in neurological exam by end of shift Outcome: Progressing Goal: Learn about and adhere to nutrition recommendations by end of shift Outcome: Progressing Goal: Vital signs within normal range for age by end of shift Outcome: Progressing Goal: Increase self care and/or family involovement by end of shift Outcome: Progressing Goal: Receive DSME education by end of shift Outcome: Progressing The patient's goals for the shift include Remain hemodynamically stable The clinical goals for the shift include pain control, remain safe Over the shift, the patient did not make progress toward the following goals. Barriers to progression include continue with oncology treatments. Recommendations to address these barriers include radiation and PET scan tomorrow. INTERVENTIONAL RADIOLOGY ADVANCED PRACTICE PROCEDURE [facility] A time out was performed and Right Hemithorax was examined with US and appropriate entry point was confirmed and marked. The patient was prepped and draped in a sterile manner, 1% lidocaine was used to anesthesize the skin and subcutaneous tissue. A 5F Centesis needle was then introduced through the skin into the pleural space, the centesis catheter was then threaded without difficulty. 400 ml of naresh fluid was removed without difficulty. The catheter was then removed. No immediate complications were noted during and immediately following the procedure. Problem: Discharge Planning Goal: Discharge to home or other facility with appropriate resources Outcome: Progressing Problem: Chronic Conditions and Co-morbidities Goal: Patient's chronic conditions and co-morbidity symptoms are monitored and maintained or improved Outcome: Progressing Problem: Nutrition Goal: Nutrient intake appropriate for maintaining nutritional needs Outcome: Progressing Problem: Skin Goal: Decreased wound size/increased tissue granulation at next dressing change Outcome: Progressing Goal: Participates in plan/prevention/treatment measures Outcome: Progressing Goal: Prevent/manage excess moisture Outcome: Progressing Goal: Prevent/minimize sheer/friction injuries Outcome: Progressing Goal: Promote/optimize nutrition Outcome: Progressing Goal: Promote skin healing Outcome: Progressing Problem: Fall/Injury Goal: Be free from injury by end of the shift Outcome: Progressing Goal: Verbalize understanding of personal risk factors for fall in the hospital Outcome: Progressing Goal: Verbalize understanding of risk factor reduction measures to prevent injury from fall in the home Outcome: Progressing Goal: Use assistive devices by end of the shift Outcome: Progressing Goal: Pace activities to prevent fatigue by end of the shift Outcome: Progressing Problem: Knowledge Deficit Goal: Patient/family/caregiver demonstrates understanding of disease process, treatment plan, medications, and discharge instructions Outcome: Progressing Problem: Mechanical Ventilation Goal: Patient Will Maintain Patent Airway Outcome: Progressing Goal: Oral health is maintained or improved Outcome: Progressing Goal: Tracheostomy will be managed safely Outcome: Progressing Goal: ET tube will be managed safely Outcome: Progressing Goal: Ability to express needs and understand communication Outcome: Progressing Goal: Mobility/activity is maintained at optimum level for patient Outcome: Progressing Problem: Safety - Medical Restraint Goal: Free from restraint(s) (Restraint for Interference with Electric Shovel Operator) Outcome: Progressing Goal: Remains free of injury from restraints (Restraint for Interference with Electric Shovel Operator) Outcome: Progressing Problem: Pain Goal: Takes deep breaths with improved pain control throughout the shift Outcome: Progressing Goal: Turns in bed with improved pain control throughout the shift Outcome: Progressing Goal: Walks with improved pain control throughout the shift Outcome: Progressing Goal: Performs ADL's with improved pain control throughout shift Outcome: Progressing Goal: Participates in PT with improved pain control throughout the shift Outcome: Progressing Goal: Free from opioid side effects throughout the shift Outcome: Progressing Goal: Free from acute confusion related to pain meds throughout the shift Outcome: Progressing Problem: Diabetes Goal: Achieve decreasing blood glucose levels by end of shift Outcome: Progressing Goal: Increase stability of blood glucose readings by end of shift Outcome: Progressing Goal: Decrease in ketones present in urine by end of shift Outcome: Progressing Goal: Maintain electrolyte levels within acceptable range throughout shift Outcome: Progressing Goal: Maintain glucose levels >70mg/dl to <250mg/dl throughout shift Outcome: Progressing Goal: No changes in neurological exam by end of shift Outcome: Progressing Goal: Learn about and adhere to nutrition recommendations by end of shift Outcome: Progressing Goal: Vital signs within normal range for age by end of shift Outcome: Progressing Goal: Increase self care and/or family involovement by end of shift Outcome: Progressing Goal: Receive DSME education by end of shift Outcome: Progressing The patient's goals for the shift include Remain hemodynamically stable The clinical goals for the shift include HDS,, free from falls Over the shift, the patient did not make progress toward the following goals. Barriers to progression include deconditioned, plaza in place, still needing O2. Recommendations to address these barriers include wean O2 as able, RT treatments. The patient's goals for the shift include Remain hemodynamically stable The clinical goals for the shift include pt will remain HDS and free of falls and injuries Problem: Nutrition Goal: Nutrient intake appropriate for maintaining nutritional needs Outcome: Progressing Problem: Skin Goal: Decreased wound size/increased tissue granulation at next dressing change Outcome: Progressing Goal: Participates in plan/prevention/treatment measures Outcome: Progressing Goal: Prevent/manage excess moisture Outcome: Progressing Goal: Prevent/minimize sheer/friction injuries Outcome: Progressing Goal: Promote/optimize nutrition Outcome: Progressing Goal: Promote skin healing Outcome: Progressing The patient's goals for the shift include Remain hemodynamically stable The clinical goals for the shift include To remainHDS, safe and free from harm Problem: Pain - Adult Goal: Verbalizes/displays adequate comfort level or baseline comfort level Outcome: Progressing Problem: Skin Goal: Decreased wound size/increased tissue granulation at next dressing change Outcome: Progressing Goal: Participates in plan/prevention/treatment measures Outcome: Progressing Goal: Prevent/manage excess moisture Outcome: Progressing Goal: Prevent/minimize sheer/friction injuries Outcome: Progressing Goal: Promote/optimize nutrition Outcome: Progressing Goal: Promote skin healing Outcome: Progressing The patient's goals for the shift include Remain hemodynamically stable The clinical goals for the shift include pt will remain HDS The patient's goals for the shift include Remain hemodynamically stable The clinical goals for the shift include patient will remain HDS, adequate oxygenation, safe and free from falls and/or injury Problem: Pain - Adult Goal: Verbalizes/displays adequate comfort level or baseline comfort level Outcome: Progressing Problem: Nutrition Goal: Nutrient intake appropriate for maintaining nutritional needs Outcome: Progressing Problem: Skin Goal: Decreased wound size/increased tissue granulation at next dressing change Outcome: Progressing Goal: Participates in plan/prevention/treatment measures Outcome: Progressing Goal: Prevent/manage excess moisture Outcome: Progressing Goal: Prevent/minimize sheer/friction injuries Outcome: Progressing Goal: Promote/optimize nutrition Outcome: Progressing Goal: Promote skin healing Outcome: Progressing The patient's goals for the shift include Remain hemodynamically stable The clinical goals for the shift include patient will remain safe Problem: Pain - Adult Goal: Verbalizes/displays adequate comfort level or baseline comfort level Outcome: Progressing Problem: Discharge Planning Goal: Discharge to home or other facility with appropriate resources Outcome: Progressing Problem: Chronic Conditions and Co-morbidities Goal: Patient's chronic conditions and co-morbidity symptoms are monitored and maintained or improved Outcome: Progressing Problem: Nutrition Goal: Nutrient intake appropriate for maintaining nutritional needs Outcome: Progressing Problem: Skin Goal: Decreased wound size/increased tissue granulation at next dressing change Outcome: Progressing Goal: Participates in plan/prevention/treatment measures Outcome: Progressing Goal: Prevent/manage excess moisture Outcome: Progressing Goal: Prevent/minimize sheer/friction injuries Outcome: Progressing Goal: Promote/optimize nutrition Outcome: Progressing Goal: Promote skin healing Outcome: Progressing Problem: Fall/Injury Goal: Be free from injury by end of the shift Outcome: Progressing Goal: Verbalize understanding of personal risk factors for fall in the hospital Outcome: Progressing Goal: Verbalize understanding of risk factor reduction measures to prevent injury from fall in the home Outcome: Progressing Goal: Use assistive devices by end of the shift Outcome: Progressing Goal: Pace activities to prevent fatigue by end of the shift Outcome: Progressing Problem: Knowledge Deficit Goal: Patient/family/caregiver demonstrates understanding of disease process, treatment plan, medications, and discharge instructions Outcome: Progressing Problem: Mechanical Ventilation Goal: Patient Will Maintain Patent Airway Outcome: Progressing Goal: Oral health is maintained or improved Outcome: Progressing Goal: Tracheostomy will be managed safely Outcome: Progressing Goal: ET tube will be managed safely Outcome: Progressing Goal: Ability to express needs and understand communication Outcome: Progressing Goal: Mobility/activity is maintained at optimum level for patient Outcome: Progressing Problem: Safety - Medical Restraint Goal: Free from restraint(s) (Restraint for Interference with Electric Shovel Operator) Outcome: Progressing Goal: Remains free of injury from restraints (Restraint for Interference with Electric Shovel Operator) Outcome: Progressing Problem: Pain Goal: Takes deep breaths with improved pain control throughout the shift Outcome: Progressing Goal: Turns in bed with improved pain control throughout the shift Outcome: Progressing Goal: Walks with improved pain control throughout the shift Outcome: Progressing Goal: Performs ADL's with improved pain control throughout shift Outcome: Progressing Goal: Participates in PT with improved pain control throughout the shift Outcome: Progressing Goal: Free from opioid side effects throughout the shift Outcome: Progressing Goal: Free from acute confusion related to pain meds throughout the shift Outcome: Progressing Problem: Diabetes Goal: Achieve decreasing blood glucose levels by end of shift Outcome: Progressing Goal: Increase stability of blood glucose readings by end of shift Outcome: Progressing Goal: Decrease in ketones present in urine by end of shift Outcome: Progressing Goal: Maintain electrolyte levels within acceptable range throughout shift Outcome: Progressing Goal: Maintain glucose levels >70mg/dl to <250mg/dl throughout shift Outcome: Progressing Goal: No changes in neurological exam by end of shift Outcome: Progressing Goal: Learn about and adhere to nutrition recommendations by end of shift Outcome: Progressing Goal: Vital signs within normal range for age by end of shift Outcome: Progressing Goal: Increase self care and/or family involovement by end of shift Outcome: Progressing Goal: Receive DSME education by end of shift Outcome: Progressing Floor Readiness Note I, personally, evaluated Melissa Dubose prior to transfer to the floor, including reviewing all current laboratory and imaging studies. The patient remains appropriate for transfer to the floor. Bedside nurse and respiratory therapy are also in agreement of patient's readiness for the floor. Brief summary: Melissa Dubose is a 64 y.o. female who was admitted to the MICU on AHRF 2/2 hilar obstruction.. They have been treated with a bronchial stent and biopsy cf NSLC.. Updated focused Physical Exam: Gen: NAD, Normocephalic, Atraumatic Cards: RRR, no murmurs Pulmonary: NC, Rhonci Abd: Soft, non-tender Neuro: Awake, Alert, following commands Current Vital Signs: Heart Rate: 64 (03/28/25 1000 : Ginger Dewitt RN) BP: 122/62 (03/28/25 1000 : Ginger Dewitt RN) Temp: 35.9 C (96.6 F) (03/28/25 0700 : Nathaly Christy) Resp: 12 (03/28/25 1000 : Ginger Dewitt RN) SpO2: 98 % (03/28/25 1000 : Ginger Dewitt RN) Relevant updates since rounds: Placed CT and MRI imaging requested by Oncology. Did not consult Radiation Oncology per Oncology note yet at time of this note. Restarted Metop and Entresto at 1/2 home doses. Holding diuresis this morning. Continuing with BID labs today and plan to monitor volume status for pm diuresis today decision. Speech to re-eval today Transitioned HFNC to NC today. Accepting team, Flavio, received verbal sign out and the Provider Care team/Attending has been updated. Bedside nurse will now call accepting nurse for report and patient will be transferred to [place] [id number]. Nathaly Glover MD MPH Internal Medicine, PGY1 03/28/25 at 10:21 AM Problem: Pain - Adult Goal: Verbalizes/displays adequate comfort level or baseline comfort level Outcome: Progressing Problem: Skin Goal: Decreased wound size/increased tissue granulation at next dressing change Outcome: Progressing Flowsheets (Taken 03/25/20252336) Decreased wound size/increased tissue granulation at next dressing change: Protective dressings over bony prominences Goal: Participates in plan/prevention/treatment measures Outcome: Progressing Flowsheets (Taken 03/25/20252336) Participates in plan/prevention/treatment measures: Elevate heels Discuss with provider PT/OT consult Goal: Prevent/manage excess moisture Outcome: Progressing Flowsheets (Taken 03/25/20252336) Prevent/manage excess moisture: Cleanse incontinence/protect with barrier cream Moisturize dry skin Monitor for/manage infection if present Goal: Prevent/minimize sheer/friction injuries Outcome: Progressing Flowsheets (Taken 03/25/20252336) Prevent/minimize sheer/friction injuries: Complete micro-shifts as needed if patient unable. Adjust patient position to relieve pressure points, not a full turn HOB 30 degrees or less Turn/reposition every 2 hours/use positioning/transfer devices Use pull sheet Goal: Promote/optimize nutrition Outcome: Progressing Flowsheets (Taken 03/25/20252336) Promote/optimize nutrition: Monitor/record intake including meals Goal: Promote skin healing Outcome: Progressing Flowsheets (Taken 03/25/20252336) Promote skin healing: Assess skin/pad under line(s)/device(s) Protective dressings over bony prominences Turn/reposition every 2 hours/use positioning/transfer devices Problem: Fall/Injury Goal: Be free from injury by end of the shift Outcome: Progressing Goal: Verbalize understanding of personal risk factors for fall in the hospital Outcome: Progressing Goal: Verbalize understanding of risk factor reduction measures to prevent injury from fall in the home Outcome: Progressing Goal: Use assistive devices by end of the shift Outcome: Progressing Goal: Pace activities to prevent fatigue by end of the shift Outcome: Progressing Problem: Safety - Medical Restraint Goal: Free from restraint(s) (Restraint for Interference with Electric Shovel Operator) Outcome: Progressing Flowsheets (Taken 03/25/20252336) Free from restraint(s) (restraint for interference with medical sociologist): ONCE/SHIFT or MINIMUM Every 12 hours: Assess and document the continuing need for restraints Problem: Safety - Medical Restraint Goal: Remains free of injury from restraints (Restraint for Interference with Electric Shovel Operator) Outcome: Progressing Flowsheets (Taken 03/25/20252336) Remains free of injury from restraints (restraint for interference with medical sociologist): Every 2 hours: Monitor safety, psychosocial status, comfort, nutrition and hydration The clinical goals for the shift include pt will remain HDS throughout shift The patient's goals for the shift include Remain hemodynamically stable The clinical goals for the shift include Pt will remain HDS throughout the shift Over the shift, the patient did not make progress toward the following goals. Barriers to progression include failing SBT. Recommendations to address these barriers include Repeat SBT in AM. Problem: Pain - Adult Goal: Verbalizes/displays adequate comfort level or baseline comfort level Outcome: Progressing Problem: Discharge Planning Goal: Discharge to home or other facility with appropriate resources Outcome: Progressing Problem: Chronic Conditions and Co-morbidities Goal: Patient's chronic conditions and co-morbidity symptoms are monitored and maintained or improved Outcome: Progressing Problem: Nutrition Goal: Nutrient intake appropriate for maintaining nutritional needs Outcome: Progressing Problem: Skin Goal: Decreased wound size/increased tissue granulation at next dressing change Outcome: Progressing Flowsheets (Taken 03/25/20251805) Decreased wound size/increased tissue granulation at next dressing change: Promote sleep for wound healing Protective dressings over bony prominences Utilize specialty bed per algorithm Goal: Participates in plan/prevention/treatment measures Outcome: Progressing Flowsheets (Taken 03/25/20251805) Participates in plan/prevention/treatment measures: Discuss with provider PT/OT consult Elevate heels Increase activity/out of bed for meals Goal: Prevent/manage excess moisture Outcome: Progressing Flowsheets (Taken 03/25/20251805) Prevent/manage excess moisture: Cleanse incontinence/protect with barrier cream Moisturize dry skin Monitor for/manage infection if present Follow provider orders for dressing changes Goal: Prevent/minimize sheer/friction injuries Outcome: Progressing Flowsheets (Taken 03/25/20251805) Prevent/minimize sheer/friction injuries: Complete micro-shifts as needed if patient unable. Adjust patient position to relieve pressure points, not a full turn Increase activity/out of bed for meals Use pull sheet HOB 30 degrees or less Turn/reposition every 2 hours/use positioning/transfer devices Utilize specialty bed per algorithm Goal: Promote/optimize nutrition Outcome: Progressing Flowsheets (Taken 03/25/20251805) Promote/optimize nutrition: Monitor/record intake including meals Goal: Promote skin healing Outcome: Progressing Flowsheets (Taken 03/25/20251805) Promote skin healing: Assess skin/pad under line(s)/device(s) Protective dressings over bony prominences Rotate device position/do not position patient on device Ensure correct size (line/device) and apply per abrasive grinder instructions Turn/reposition every 2 hours/use positioning/transfer devices Problem: Fall/Injury Goal: Be free from injury by end of the shift Outcome: Progressing Goal: Verbalize understanding of personal risk factors for fall in the hospital Outcome: Progressing Goal: Verbalize understanding of risk factor reduction measures to prevent injury from fall in the home Outcome: Progressing Goal: Use assistive devices by end of the shift Outcome: Progressing Goal: Pace activities to prevent fatigue by end of the shift Outcome: Progressing Problem: Knowledge Deficit Goal: Patient/family/caregiver demonstrates understanding of disease process, treatment plan, medications, and discharge instructions Outcome: Progressing Problem: Mechanical Ventilation Goal: Patient Will Maintain Patent Airway Outcome: Progressing Goal: Oral health is maintained or improved Outcome: Progressing Goal: Tracheostomy will be managed safely Outcome: Progressing Goal: ET tube will be managed safely Outcome: Progressing Goal: Ability to express needs and understand communication Outcome: Progressing Goal: Mobility/activity is maintained at optimum level for patient Outcome: Progressing Problem: Safety - Medical Restraint Goal: Free from restraint(s) (Restraint for Interference with Electric Shovel Operator) Outcome: Progressing Flowsheets (Taken 03/25/20251805) Free from restraint(s) (restraint for interference with medical sociologist): ONCE/SHIFT or MINIMUM Every 12 hours: Assess and document the continuing need for restraints Every 24 hours: Continued use of restraint requires Licensed Independent Practitioner to perform face to face examination and written order Identify and implement measures to help patient regain control Goal: Remains free of injury from restraints (Restraint for Interference with Electric Shovel Operator) Outcome: Progressing Flowsheets (Taken 03/25/20251805) Remains free of injury from restraints (restraint for interference with medical sociologist): Determine that other, less restrictive measures have been tried or would not be effective before applying the restraint Every 2 hours: Monitor safety, psychosocial status, comfort, nutrition and hydration Inform patient/family regarding the reason for restraint Evaluate the patient's condition at the time of restraint application Problem: Pain Goal: Takes deep breaths with improved pain control throughout the shift Outcome: Progressing Goal: Turns in bed with improved pain control throughout the shift Outcome: Progressing Goal: Walks with improved pain control throughout the shift Outcome: Progressing Goal: Performs ADL's with improved pain control throughout shift Outcome: Progressing Goal: Participates in PT with improved pain control throughout the shift Outcome: Progressing Goal: Free from opioid side effects throughout the shift Outcome: Progressing Goal: Free from acute confusion related to pain meds throughout the shift Outcome: Progressing Problem: Diabetes Goal: Achieve decreasing blood glucose levels by end of shift Outcome: Progressing Goal: Increase stability of blood glucose readings by end of shift Outcome: Progressing Goal: Decrease in ketones present in urine by end of shift Outcome: Progressing Goal: Maintain electrolyte levels within acceptable range throughout shift Outcome: Progressing Goal: Maintain glucose levels >70mg/dl to <250mg/dl throughout shift Outcome: Progressing Goal: No changes in neurological exam by end of shift Outcome: Progressing Goal: Learn about and adhere to nutrition recommendations by end of shift Outcome: Progressing Goal: Vital signs within normal range for age by end of shift Outcome: Progressing Goal: Increase self care and/or family involovement by end of shift Outcome: Progressing Goal: Receive DSME education by end of shift Outcome: Progressing Per MICU team pt placed on SBT. 1554-Pt desaturating on PS, irregular rhythms and placed back on full support with no plans to extubate today. Pt desaturating, fio2 increased to 50% Based on an spo2 of 98%, fio2 titrated to 40%. RN and team aware. Peep decreased to 5cmh2o fio2 to 50% per Dr. Finney The patient's goals for the shift include Remain hemodynamically stable Problem: Pain - Adult Goal: Verbalizes/displays adequate comfort level or baseline comfort level Outcome: Progressing Problem: Discharge Planning Goal: Discharge to home or other facility with appropriate resources Outcome: Progressing Problem: Chronic Conditions and Co-morbidities Goal: Patient's chronic conditions and co-morbidity symptoms are monitored and maintained or improved Outcome: Progressing Problem: Nutrition Goal: Nutrient intake appropriate for maintaining nutritional needs Outcome: Progressing Problem: Skin Goal: Decreased wound size/increased tissue granulation at next dressing change Outcome: Progressing Flowsheets (Taken 03/24/2025 1403) Decreased wound size/increased tissue granulation at next dressing change: Promote sleep for wound healing Goal: Participates in plan/prevention/treatment measures Outcome: Progressing Goal: Prevent/manage excess moisture Outcome: Progressing Goal: Prevent/minimize sheer/friction injuries Outcome: Progressing Goal: Promote/optimize nutrition Outcome: Progressing Goal: Promote skin healing Outcome: Progressing Problem: Fall/Injury Goal: Be free from injury by end of the shift Outcome: Progressing Goal: Verbalize understanding of personal risk factors for fall in the hospital Outcome: Progressing Goal: Verbalize understanding of risk factor reduction measures to prevent injury from fall in the home Outcome: Progressing Goal: Use assistive devices by end of the shift Outcome: Progressing Goal: Pace activities to prevent fatigue by end of the shift Outcome: Progressing Problem: Knowledge Deficit Goal: Patient/family/caregiver demonstrates understanding of disease process, treatment plan, medications, and discharge instructions Outcome: Progressing Problem: Mechanical Ventilation Goal: Patient Will Maintain Patent Airway Outcome: Progressing Goal: Oral health is maintained or improved Outcome: Progressing Goal: Tracheostomy will be managed safely Outcome: Progressing Goal: ET tube will be managed safely Outcome: Progressing Goal: Ability to express needs and understand communication Outcome: Progressing Goal: Mobility/activity is maintained at optimum level for patient Outcome: Progressing Problem: Safety - Medical Restraint Goal: Free from restraint(s) (Restraint for Interference with Electric Shovel Operator) 03/24/2025 1403 by Mumtaz Abbasi RN Outcome: Progressing 03/24/2025 140 by Mumtaz Abbasi RN Flowsheets (Taken 03/24/2025 140) Free from restraint(s) (restraint for interference with medical sociologist): Every 24 hours: Continued use of restraint requires Licensed Independent Practitioner to perform face to face examination and written order Goal: Remains free of injury from restraints (Restraint for Interference with Electric Shovel Operator) 03/24/2025 1403 by Mumtaz Abbasi RN Outcome: Progressing 03/24/2025 140 by Mumtaz Abbasi RN Flowsheets (Taken 03/24/2025 1402) Remains free of injury from restraints (restraint for interference with medical sociologist): Evaluate the patient's condition at the time of restraint application Problem: Pain Goal: Takes deep breaths with improved pain control throughout the shift Outcome: Progressing Goal: Turns in bed with improved pain control throughout the shift Outcome: Progressing Goal: Walks with improved pain control throughout the shift Outcome: Progressing Goal: Performs ADL's with improved pain control throughout shift Outcome: Progressing Goal: Participates in PT with improved pain control throughout the shift Outcome: Progressing Goal: Free from opioid side effects throughout the shift Outcome: Progressing Goal: Free from acute confusion related to pain meds throughout the shift Outcome: Progressing Problem: Skin Goal: Prevent/manage excess moisture Outcome: Progressing Flowsheets (Taken 03/23/20252126) Prevent/manage excess moisture: Cleanse incontinence/protect with barrier cream Use wicking fabric (obtain order) Goal: Prevent/minimize sheer/friction injuries Outcome: Progressing Flowsheets (Taken 03/23/20252126) Prevent/minimize sheer/friction injuries: Turn/reposition every 2 hours/use positioning/transfer devices Use pull sheet Goal: Promote skin healing Outcome: Progressing Flowsheets (Taken 03/23/20252126) Promote skin healing: Turn/reposition every 2 hours/use positioning/transfer devices Assess skin/pad under line(s)/device(s) Problem: Safety - Medical Restraint Goal: Free from restraint(s) (Restraint for Interference with Electric Shovel Operator) Outcome: Progressing Flowsheets (Taken 03/23/20252127) Free from restraint(s) (restraint for interference with medical sociologist): ONCE/SHIFT or MINIMUM Every 12 hours: Assess and document the continuing need for restraints Goal: Remains free of injury from restraints (Restraint for Interference with Electric Shovel Operator) Outcome: Progressing Flowsheets (Taken 03/23/20252127) Remains free of injury from restraints (restraint for interference with medical sociologist): Every 2 hours: Monitor safety, psychosocial status, comfort, nutrition and hydration Ms. 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 She was transferred from outside hospital where CT chest was negative for PE, noted to have R hilar mass measuring 5x4.7cm with narrowing of the R mainstem bronchus and complete occlusion of the proximal RUL bronchus. She was transferred to the MICU on 03/22 for further care but was intubated en route. Pt had increasing O2 requirements up to 100% FiO2 on the vent on 03/23 and CXR showed progressive worsening and collapse of the RUL on 03/23. EKGs from 03/24 in AM showed RBBB and c/f [place]. Repeat EKG showed RBBB and no ST elevation or depression and trops were negative. Underwent bronchoscopy with stenting and biopsy 03/24. Surgical path from R lung biopsy showed NSCLC carcinoma, favor adenocarcinoma in 4R lymph node, tumor cells positive for TTF-1 ([id number]) and CK7, negative for p40. Viable tumor nuclei: 20%. TPS 90%. NGS ordered for outpatient treatment planning. 03/25 pt was able to wean down to 40% FiO2. Pt given 60mg BID of lasix IV 03/25 d/t bilateral pleural effusions on CXR and effusion on the R side during POCUS; had good urine output. Restarted Eliquis 03/25. Pt on Unasyn 03/22-03/29 for suspected underlying pna. Stopped after 7 days ending 03/29. Tolerated vent weaning and was extubated 03/26 with stable respiratory status since. Continued diuresis with IV Lasix 60mg BID on 03/26 and 03/27. Overall improvement in CXR bilateral effusions so held diuresis on 03/28. Oncology consulted on 03/27 for c/f NSCLC, recommended to obtain CT chest and abd w IV contrast and MRI brain w/wo contrast. Rad onc consulted for consideration of thoracic radiation. Patient weaned to 5 L NC on 03/28 and transferred to [facility] oncology for management of new NSCLC and acute hypoxic respiratory failure. CT C/A/P 03/28 showed re-demonstrated R hilar mass now with R bronchial stent as well as L adrenal 2 cm nodule and hypodense lesion in the L anterior perihepatic space. No mets on MRI brain 03/29. Patient recommended acute rehab by PT/OT. Patient approved for inpatient PET-CT 03/31, showed redemonstrated R hilar mass and possible metastases to cervical, thoracic, and abdominopelvic lymph nodes, subcutaneous tissues of the chest/abdomen/pelvis and within the peritoneum, the right humeral diaphysis, and L adrenal gland. Patient further weaned to 2 L on 03/30. Patient received inpatient radiation 04/01 to R hilar mass (8 Gy in one fraction). Patient underwent thoracentesis by IR 03/31 for drainage of bilateral pleural effusions to improve oxygenation. Patient was weaned to from 2 L to 1 L NC overnight. C/f loss of air, CXR obtained 03/31 showing redemonstration of R hilar mass, enlarged cardiac silhouette, course interstitial opacities involving the perihilar regions, lung bases, atelectasis, and small bilateral pleural effusions. No pneumothorax seen. Repeat CXR 03/31 showing moderate to large right pneumothorax. Eliquis held, pulmonology consulted for possible intervention. Repeat CXRs 04/02 and 04/03 showing stable size of PTX. Patient satting at 3 L NC on 04/02, not reporting worsening shortness of breath. Patient restarted on Eliquis due to stable respiratory status. Per pulm recs, daily AM CXR while inpatient to monitor PTX and, if pt decompensates acutely, urgent transfer to MICU for chest tube. Follow up with pulmonary for bronchoscopy in 3-4 weeks for evaluation of stent removal. Patient recommended for high intensity level of continued care (acute rehab) by PT/OT, referral was faxed 04/02. Dr. Escobedo at [facility] was messaged for further recommendations on treatment timing with acute rehab, OK with acute rehab before starting chemo. Patient referred to outpatient thoracic onc at [facility] (Dr. Escobedo staff working on scheduling appt) and outpatient rad onc at [facility] w/ Dr. Arroyo. To-do [ ] Follow up trial of void with nursing (plaza removed 04/04) [ ] Daily AM CXR while inpatient to monitor PTX; CXR today showing stable size of PTX on initial review [ ] Follow up after TCC rounds the status of the referral to acute care rehab The patient's goals for the shift include Remain hemodynamically stable The clinical goals for the shift include patient will maintain pox >88 Problem: Safety - Adult Goal: Free from fall injury Outcome: Met Problem: Fall/Injury Goal: Not fall by end of shift Outcome: Met Problem: Safety - Medical Restraint Goal: Remains free of injury from restraints (Restraint for Interference with Electric Shovel Operator) Outcome: Met Goal: Free from restraint(s) (Restraint for Interference with Electric Shovel Operator) Outcome: Not Progressing Flowsheets (Taken 03/22/20252110 by Amado Tolliver RN) Free from restraint(s) (restraint for interference with medical sociologist): ONCE/SHIFT or MINIMUM Every 12 hours: Assess and document the continuing need for restraints Problem: Safety - Medical Restraint Goal: Free from restraint(s) (Restraint for Interference with Electric Shovel Operator) Outcome: Not Progressing Flowsheets (Taken 03/22/20252110 by Amado Tolliver RN) Free from restraint(s) (restraint for interference with medical sociologist): ONCE/SHIFT or MINIMUM Every 12 hours: Assess and document the continuing need for restraints Problem: Skin Goal: Prevent/manage excess moisture Outcome: Progressing Flowsheets (Taken 03/22/20252110) Prevent/manage excess moisture: Cleanse incontinence/protect with barrier cream Monitor for/manage infection if present Goal: Prevent/minimize sheer/friction injuries Outcome: Progressing Flowsheets (Taken 03/22/20252110) Prevent/minimize sheer/friction injuries: Use pull sheet Complete micro-shifts as needed if patient unable. Adjust patient position to relieve pressure points, not a full turn Goal: Promote skin healing Outcome: Progressing Flowsheets (Taken 03/22/20252110) Promote skin healing: Assess skin/pad under line(s)/device(s) Turn/reposition every 2 hours/use positioning/transfer devices Problem: Safety - Medical Restraint Goal: Remains free of injury from restraints (Restraint for Interference with Electric Shovel Operator) Outcome: Progressing Flowsheets (Taken 03/22/20252110) Remains free of injury from restraints (restraint for interference with medical sociologist): Every 2 hours: Monitor safety, psychosocial status, comfort, nutrition and hydration Goal: Free from restraint(s) (Restraint for Interference with Electric Shovel Operator) Outcome: Progressing Flowsheets (Taken 03/22/20252110) Free from restraint(s) (restraint for interference with medical sociologist): ONCE/SHIFT or MINIMUM Every 12 hours: Assess and document the continuing need for restraints Problem: Safety - Medical Restraint Goal: Remains free of injury from restraints (Restraint for Interference with Electric Shovel Operator) Outcome: Progressing Goal: Free from restraint(s) (Restraint for Interference with Electric Shovel Operator) Outcome: Progressing The patient's goals for the shift include kosta The clinical goals for the shift include Improve ability to oxygenate Problem: Pain - Adult Goal: Verbalizes/displays adequate comfort level or baseline comfort level 03/22/2025 07 by Jag Posada RN Outcome: Progressing 03/22/2025 07 by Jag Posada RN Outcome: Progressing Problem: Safety - Adult Goal: Free from fall injury 03/22/2025 0738 by Jag Posada RN Outcome: Progressing 03/22/2025 07 by Jag Posada RN Outcome: Progressing Problem: Discharge Planning Goal: Discharge to home or other facility with appropriate resources 03/22/2025737 by Jag Posada RN Outcome: Progressing 03/22/2025736 by Jag Posada RN Outcome: Progressing Problem: Chronic Conditions and Co-morbidities Goal: Patient's chronic conditions and co-morbidity symptoms are monitored and maintained or improved 03/22/2025737 by Jag Posada RN Outcome: Progressing 03/22/2025736 by Jag Posada RN Outcome: Progressing Problem: Nutrition Goal: Nutrient intake appropriate for maintaining nutritional needs 03/22/2025737 by Jag Posada RN Outcome: Progressing 03/22/2025736 by Jag Posada RN Outcome: Progressing Problem: Skin Goal: Decreased wound size/increased tissue granulation at next dressing change 03/22/2025737 by Jag Posada RN Outcome: Progressing Flowsheets (Taken 03/22/2025736) Decreased wound size/increased tissue granulation at next dressing change: Promote sleep for wound healing Protective dressings over bony prominences Utilize specialty bed per algorithm 03/22/2025736 by Jag Posada RN Outcome: Progressing Flowsheets (Taken 03/22/2025736) Decreased wound size/increased tissue granulation at next dressing change: Promote sleep for wound healing Protective dressings over bony prominences Utilize specialty bed per algorithm Goal: Participates in plan/prevention/treatment measures 03/22/2025737 by Jag Posada RN Outcome: Progressing Flowsheets (Taken 03/22/2025736) Participates in plan/prevention/treatment measures: Discuss with provider PT/OT consult Elevate heels 03/22/2025736 by Jag Posada RN Outcome: Progressing Flowsheets (Taken 03/22/2025736) Participates in plan/prevention/treatment measures: Discuss with provider PT/OT consult Elevate heels Goal: Prevent/manage excess moisture 03/22/2025737 by Jag Posada RN Outcome: Progressing Flowsheets (Taken 03/22/2025736) Prevent/manage excess moisture: Cleanse incontinence/protect with barrier cream Follow provider orders for dressing changes Moisturize dry skin Monitor for/manage infection if present 03/22/2025736 by Jag Posada RN Outcome: Progressing Flowsheets (Taken 03/22/2025736) Prevent/manage excess moisture: Cleanse incontinence/protect with barrier cream Follow provider orders for dressing changes Moisturize dry skin Monitor for/manage infection if present Goal: Prevent/minimize sheer/friction injuries 03/22/2025737 by Jag Posada RN Outcome: Progressing Flowsheets (Taken 03/22/2025736) Prevent/minimize sheer/friction injuries: Complete micro-shifts as needed if patient unable. Adjust patient position to relieve pressure points, not a full turn Turn/reposition every 2 hours/use positioning/transfer devices HOB 30 degrees or less Use pull sheet Increase activity/out of bed for meals Utilize specialty bed per algorithm 03/22/2025736 by Jag Posada RN Outcome: Progressing Flowsheets (Taken 03/22/2025736) Prevent/minimize sheer/friction injuries: Complete micro-shifts as needed if patient unable. Adjust patient position to relieve pressure points, not a full turn Turn/reposition every 2 hours/use positioning/transfer devices HOB 30 degrees or less Use pull sheet Increase activity/out of bed for meals Utilize specialty bed per algorithm Goal: Promote/optimize nutrition 03/22/2025737 by Jag Posada RN Outcome: Progressing Flowsheets (Taken 03/22/2025736) Promote/optimize nutrition: Discuss with provider if NPO > 2 days 03/22/2025736 by Jag Posada RN Outcome: Progressing Flowsheets (Taken 03/22/2025736) Promote/optimize nutrition: Discuss with provider if NPO > 2 days Goal: Promote skin healing 03/22/2025737 by Jag Posada RN Outcome: Progressing Flowsheets (Taken 03/22/2025736) Promote skin healing: Assess skin/pad under line(s)/device(s) Rotate device position/do not position patient on device Ensure correct size (line/device) and apply per abrasive grinder instructions Turn/reposition every 2 hours/use positioning/transfer devices Protective dressings over bony prominences 03/22/2025736 by Jag Posada RN Outcome: Progressing Flowsheets (Taken 03/22/2025736) Promote skin healing: Assess skin/pad under line(s)/device(s) Rotate device position/do not position patient on device Ensure correct size (line/device) and apply per abrasive grinder instructions Turn/reposition every 2 hours/use positioning/transfer devices Protective dressings over bony prominences Problem: Fall/Injury Goal: Not fall by end of shift 03/22/2025737 by Jag Posada RN Outcome: Progressing 03/22/2025736 by Jag Posada RN Outcome: Progressing Goal: Be free from injury by end of the shift 03/22/2025737 by Jag Posada RN Outcome: Progressing 03/22/2025736 by Jag Posada RN Outcome: Progressing Goal: Verbalize understanding of personal risk factors for fall in the hospital 03/22/2025737 by Jag Posada RN Outcome: Progressing 03/22/2025736 by Jag Posada RN Outcome: Progressing Goal: Verbalize understanding of risk factor reduction measures to prevent injury from fall in the home 03/22/2025737 by Jag Posada RN Outcome: Progressing 03/22/2025736 by Jag Posada RN Outcome: Progressing Goal: Use assistive devices by end of the shift 03/22/2025737 by Jag Posada RN Outcome: Progressing 03/22/2025736 by Jag Posada RN Outcome: Progressing Goal: Pace activities to prevent fatigue by end of the shift 03/22/2025737 by Jag Posada RN Outcome: Progressing 03/22/2025736 by Jag Posada RN Outcome: Progressing Problem: Knowledge Deficit Goal: Patient/family/caregiver demonstrates understanding of disease process, treatment plan, medications, and discharge instructions 03/22/2025737 by Jag Posada RN Outcome: Progressing 03/22/2025736 by Jag Posada RN Outcome: Progressing Problem: Mechanical Ventilation Goal: Patient Will Maintain Patent Airway 03/22/2025737 by Jag Posada RN Outcome: Progressing 03/22/2025736 by Jag Posada RN Outcome: Progressing Goal: Oral health is maintained or improved 03/22/2025737 by Jag Posada RN Outcome: Progressing 03/22/2025736 by Jag Posada RN Outcome: Progressing Goal: Tracheostomy will be managed safely 03/22/2025737 by Jag Posada RN Outcome: Progressing 03/22/2025736 by Jag Posada RN Outcome: Progressing Goal: ET tube will be managed safely 03/22/2025737 by Jag Posada RN Outcome: Progressing 03/22/2025736 by Jag Posada RN Outcome: Progressing Goal: Ability to express needs and understand communication 03/22/2025737 by Jag Posada RN Outcome: Progressing 03/22/2025736 by Jag Posada RN Outcome: Progressing Goal: Mobility/activity is maintained at optimum level for patient 03/22/2025737 by Jag Posada RN Outcome: Progressing 03/22/2025736 by Jag Posada RN Outcome: Progressing Problem: Safety - Medical Restraint Goal: Remains free of injury from restraints (Restraint for Interference with Electric Shovel Operator) 03/22/2025737 by Jag Posada RN Outcome: Progressing 03/22/2025736 by Jag Posada RN Outcome: Progressing Goal: Free from restraint(s) (Restraint for Interference with Electric Shovel Operator) 03/22/2025737 by Jag Posada RN Outcome: Progressing 03/22/2025736 by Jag Posada RN Outcome: Progressing documented in this encounter [facility] Work Phone: 04-02-2025 Hospital Discharge instructions Rai Rand MD - 04/02/2025 2:25 PM EDT Images from the original note were not included. Dear Ms. Dubose, You were admitted to [facility] on 03/22/2025 due to worsening shortness of breath and right-sided chest pain. A CT scan of your chest at [facility] showed a mass in your right lung that extended near your trachea and blocked your main right airway. There was also some fluid in the space between your lungs and chest wall. The decision was made to transfer you to [facility] for more specialized pulmonary care. On the way, you experienced worsening shortness of breath, and you were intubated and connected to a ventilator. You were in the medical ICU at [facility] from 03/22/2025 to 03/27/2025. You underwent a bronchoscopy so we could obtain a biopsy or sample of the lung mass. Part of your right airway was also stented to alleviate the blockage and improve your breathing. The pathology report on the lung biopsy showed that it was non-small cell lung carcinoma. Your breathing improved and you were extubated and removed from the ventilator on 03/26/25. You were transferred out of the ICU to the primary oncology service on 03/27/2025. We took a PET-CT scan to see if the cancer had spread to other areas. The scan found lesions that are likely metastases in your lymph nodes, tissues under your skin, your right humerus, and your left adrenal gland. We obtained an MRI of your brain and found no evidence of brain metastases. You received radiation to your right lung mass on 04/01/25 to decrease its size and improve your breathing. You also underwent a thoracentesis on 03/31/25 in order to further improve your breathing by removing the fluid in the space between your lung and chest wall. We obtained a chest X-ray on 03/31/25 that showed partial collapse of your right upper lung. We contacted our pulmonology team to help guide our treatment. You were recommending for discharge to retirement facility to improve and rebuild your strength. We have contacted Dr. Amira Escobedo at [facility] to coordinate your care after your discharge from the hospital. INSTRUCTIONS: - please take oxycodone for pain every 4 hours as needed. Please take 5mg (1 tablet) for moderate pain and 10mg (2 tablets) for severe pain. - please attend your important follow up appointments The following attachments cannot be sent through Care Everywhere.Chest Pain, Adult ED ([place])documented in this encounter [facility] Work Phone: 04-02-2025 Consult note Formatting of th is note might be different from the original. Reason For Consult Pneumothorax History Of Present Illness 64yoF admitted for acute hypoxic respiratory failure. PMHx Tobacco use disorder Heart failure recovered ejection fraction Ischemic cardiomyopathy Coronary artery disease s/p CABG 2015 Hypertension Atrial fibrillation Chronic obstructive pulmonary disease, documented. Diabetes Mellitus Type 2 In brief, index admission for acute hypoxic respiratory failure requiring invasive mechanical ventilation iso postobstructive pneumonia R hilar mass with R mainstem extrinsic compression s/p bronchoscopy with bronchial stent to R mainstem and biopsy revealing NSCLC-adenocarcinoma. 03/28, transferred to general oncology service. Notably, 03/31 R thoracentesis [400cc naresh fluid] c/b iatrogenic pneumothorax [moderate to large right-sided with interval progression]. Past Medical History She has a past medical history of A-fib (Multi), Adrenal mass (Multi), Anxiety, CAD (coronary artery disease), DM (diabetes mellitus) (Multi), PANDEY (dyspnea on exertion), GERD (gastroesophageal reflux disease), GIB (gastrointestinal bleeding), HF (heart failure), Hilar mass, HTN (hypertension), HTN (hypertension), Ischemic cardiomyopathy, Kidney stones, NSTEMI (non-ST elevated myocardial infarction) (Multi), OAB (overactive bladder), and SOB (shortness of breath). Surgical History She has a past surgical history that includes Coronary artery bypass graft; section, classic; Cardioversion; Back surgery; Cardiac catheterization; and Tonsillectomy. Social History She reports that she has never smoked. She has never used smokeless tobacco. She reports that she does not currently use alcohol. No history on file for drug use. Family History Family History[1] Allergies Patient has no known allergies. Physical Exam AAOx3 Respiratory Distress: none Respiratory failure: LFNC Diminished R RRR, no murmur Lower extremity swelling: none Last Recorded Vitals Blood pressure 131/84, pulse 72, temperature 36.4 C (97.5 F), temperature source Temporal, resp. rate (!) 116, height 1.778 m (5' 10 ), weight 117 kg (258 lb 1.6 oz), SpO2 93%. Relevant Results Pertinent data including labs, imaging, procedural data and more reviewed Assessment/Plan 64yoF admitted for acute hypoxic respiratory failure. PMHx Tobacco use disorder Heart failure recovered ejection fraction Ischemic cardiomyopathy Coronary artery disease s/p CABG 2015 Hypertension Atrial fibrillation Chronic obstructive pulmonary disease, documented. Diabetes Mellitus Type 2 In brief, index admission for acute hypoxic respiratory failure requiring invasive mechanical ventilation iso postobstructive pneumonia R hilar mass with R mainstem extrinsic compression s/p bronchoscopy with bronchial stent to R mainstem and biopsy revealing NSCLC-adenocarcinoma. 03/28, transferred to general oncology service. Notably, 03/31 R thoracentesis [400cc naresh fluid] c/b iatrogenic pneumothorax [moderate to large right-sided with interval progression]. At this juncture, patient with high risk characteristic for pneumothorax [age with significant tobacco use] though no evidence of tension pneumothorax, significant hypoxia, bilateral pneumothoraces, underlying structural lung disease, nor hemopneumothorax. Yet, patient without distress though not significantly dyspneic but with pleuritic chest pain; confounders exists [mass, radiation in AM correlate temporally] and patient with improving oxygenation. Interim 04/02: Equivocal historian. On re-evaluation, reports symptomatic improvement. Coincides with improving respiratory failure. No active indication for chest tube. Plan continued. Thus, at this time, anticipatory guidance provided to both patient and primary team in which tube thoracostomy would be compelled. For now, repeat daily radiograph in AM without intervention and to hold systemic therapeutic anticoagulation [atrial fibrillation] in acute setting in preparedness for possible intervention. If clinical deterioration - defined by worsening symptomatology and/or hemodynamic collapse and progressively worsening respiratory failure], low threshold to involve MICU for tube thoracostomy. Thank you for involving pulmonary medicine in the care of Ms. Dubose Pulmonary medicine to continue to follow Case discussed with Dr. Clare Butt MD [1] No family history on file. Cosigned by Nabor Sparks MD at 04/02/2025 2:09 PM EDT Associated attestation - Nabor Sparks MD - 04/02/2025 2:09 PM EDT CXR reviewed and compared to prior looks generally stable. There is no new lateral extension of pneumothorax or compression of the RML or RLL. Respiratory symptoms stable. Given stability continue to recommend monitoring. Daily CXR. Will continue to follow. I saw and evaluated the patient. I personally obtained the back and critical portions of the history and physical exam or was physically present for back and critical portions performed by the resident/fellow. I reviewed the resident/fellow's documentation and discussed the patient with the resident/fellow. I agree with the resident/fellow's medical decision making as documented in the note. Associated Order(s): IP CONSULT TO SOCIAL WORK; IP CONSULT TO PULMONOLOGY Reason For Consult Pneumothorax History Of Present Illness 64yoF admitted for acute hypoxic respiratory failure. PMHx Tobacco use disorder Heart failure recovered ejection fraction Ischemic cardiomyopathy Coronary artery disease s/p CABG 2015 Hypertension Atrial fibrillation Chronic obstructive pulmonary disease, documented. Diabetes Mellitus Type 2 In brief, index admission for acute hypoxic respiratory failure requiring invasive mechanical ventilation iso postobstructive pneumonia R hilar mass with R mainstem extrinsic compression s/p bronchoscopy with bronchial stent to R mainstem and biopsy revealing NSCLC-adenocarcinoma. 03/28, transferred to general oncology service. Notably, 03/31 R thoracentesis [400cc naresh fluid] c/b iatrogenic pneumothorax [moderate to large right-sided with interval progression]. Past Medical History She has a past medical history of A-fib (Multi), Adrenal mass (Multi), Anxiety, CAD (coronary artery disease), DM (diabetes mellitus) (Multi), PANDEY (dyspnea on exertion), GERD (gastroesophageal reflux disease), GIB (gastrointestinal bleeding), HF (heart failure), Hilar mass, HTN (hypertension), HTN (hypertension), Ischemic cardiomyopathy, Kidney stones, NSTEMI (non-ST elevated myocardial infarction) (Multi), OAB (overactive bladder), and SOB (shortness of breath). Surgical History She has a past surgical history that includes Coronary artery bypass graft; section, classic; Cardioversion; Back surgery; Cardiac catheterization; and Tonsillectomy. Social History She reports that she has never smoked. She has never used smokeless tobacco. She reports that she does not currently use alcohol. No history on file for drug use. Family History Family History[1] Allergies Patient has no known allergies. Physical Exam AAOx3 Respiratory Distress: none Respiratory failure: LFNC Diminished R RRR, no murmur Lower extremity swelling: none Last Recorded Vitals Blood pressure 139/86, pulse 80, temperature 36.5 C (97.7 F), temperature source Temporal, resp. rate 16, height 1.778 m (5' 10 ), weight 117 kg (258 lb 1.6 oz), SpO2 96%. Relevant Results Pertinent data including labs, imaging, procedural data and more reviewed Assessment/Plan 64yoF admitted for acute hypoxic respiratory failure. PMHx Tobacco use disorder Heart failure recovered ejection fraction Ischemic cardiomyopathy Coronary artery disease s/p CABG 2015 Hypertension Atrial fibrillation Chronic obstructive pulmonary disease, documented. Diabetes Mellitus Type 2 In brief, index admission for acute hypoxic respiratory failure requiring invasive mechanical ventilation iso postobstructive pneumonia R hilar mass with R mainstem extrinsic compression s/p bronchoscopy with bronchial stent to R mainstem and biopsy revealing NSCLC-adenocarcinoma. 03/28, transferred to general oncology service. Notably, 03/31 R thoracentesis [400cc naresh fluid] c/b iatrogenic pneumothorax [moderate to large right-sided with interval progression]. At this juncture, patient with high risk characteristic for pneumothorax [age with significant tobacco use] though no evidence of tension pneumothorax, significant hypoxia, bilateral pneumothoraces, underlying structural lung disease, nor hemopneumothorax. Yet, patient without distress though not significantly dyspneic but with pleuritic chest pain; confounders exists [mass, radiation in AM correlate temporally] and patient with improving oxygenation. Thus, at this time, anticipatory guidance provided to both patient and primary team in which tube thoracostomy would be compelled. For now, repeat radiograph in AM without intervention and to hold systemic therapeutic anticoagulation [atrial fibrillation] in acute setting in preparedness for possible intervention. If clinical deterioration - defined by worsening symptomatology and/or hemodynamic collapse and progressively worsening respiratory failure], low threshold to involve MICU for tube thoracostomy. Thank you for involving pulmonary medicine in the care of Ms. Dubose Pulmonary medicine to continue to follow Case discussed with Dr. Clare Butt MD [1] No family history on file. Cosigned by Nabor Sparks MD at 04/01/2025 5:58 PM EDT Associated attestation - Nabor Sparks MD - 04/01/2025 5:58 PM EDT Moderate pneumothorax initially seen on cxr 03/31. Patient with minimal/mild symptoms of increased shortness of breath without increased work of breathing or chest pain. When comparing pm CXR on 03/31 to eating disorder specialist film from PET scan on 04/01 it appears stable from that time. Given this appeared after a thoracentesis its unclear if this from lung parenchymal injury or intrained air during the procedure. Notably patient is on apixaban for AC. Given current anticoagulation and minimal symptoms would recommend continued monitoring of symptoms and of CXR and holding apixaban. If pnx increases on imaging or has increased symptoms will place pigtail chest tube. Please page consult team during 7am-7pm if symtpoms worsen or MICU fellow from 7pm-7am. MICU fellow made aware. I saw and evaluated the patient. I personally obtained the back and critical portions of the history and physical exam or was physically present for back and critical portions performed by the resident/fellow. I reviewed the resident/fellow's documentation and discussed the patient with the resident/fellow. I agree with the resident/fellow's medical decision making as documented in the note. Associated Order(s): IP CONSULT TO PHYSICAL MEDICINE REHAB PM&R Consult Note Patient: Melissa Dubose Age/sex: 64 y.o. Consulting physician: Dr. Mariano Clark Chief complaint: Impairments and acitivities limitations in ADLs, mobility, functional communication, and cognition secondary to debility from prolonged hospital course, NSCLC. PM&R was consulted for recommendations and for IRF appropriateness. HPI: Melissa Dubose is a 64 y.o. year old female patient with PMHx of of CAD s/p CABG in 2015, COPD, HTN, afib, T2DM, ICM HFimpEF (11/2024 TTE EF 50-55%) on hospital day 9 admitted for acute hypoxic respiratory failure requiring mechanical ventilation. She originally presented to [facility] 03/21 for 1 week of progressive SOB and R sided chest pain for several months. Noted to have R hilar mass on CT chest measuring 5x4.7 cm and invading into the adjacent mediastinum with R mainstem bronchus narrowing and complete occlusion of the proximal RUL bronchus. Intubated en route to the MICU 03/22 due to increasing O2 requirements. Extubated 03/26 with stable respiratory status since. MICU course significant for bronchoscopy 03/24 with stent of proximal R mainstem bronchus and biopsy with path report of NSCLC favoring adenocarcinoma. Procedures performed on/related to this admission: 03/24 with stent of proximal R mainstem bronchus and biopsy with path report of NSCLC favoring adenocarcinoma Home Situation/ Supports Lives in: house Stairs to enter: 4-5 Stairs in home: 12 Bed level: main with hospital bed Bathroom level: main Lives with: daughter, 13yo foster son Who can help at home and how often: family 01/04 Prior Level of Function Mobility: Independent ADLs: Independent Assistive Devices: rollator Physical Therapy Last seen: 03/30 Bed mobility: Jabari to ModA Transfers: ModA Ambulation: no Occupational Therapy Last seen: 03/30 Eating Assistance: Independent (Anticipated) Grooming Assistance: Minimal Bathing Assistance: Moderate (Anticipated) UE Dressing Assistance: Minimal LE Dressing Assistance: Maximal Toileting Assistance with Device: Total Speech Therapy Last seen: 03/29 Evaluation: regular/thins, no AIRFIELD MANAGER needed REVIEW OF SYSTEMS Constitutional: Denies fever, chills, fatigue, appetite/weight change HEENT: Denies hearing loss, tinnitus, voice change Cardio: Denies chest pain, leg swelling, palpitations Respiratory: Denies SOB, cough, wheezing GI: Denies Abd pain, constipation, diarrhea, N/V : Denies dysuria, urgency, decreased urination MSK: Denies arthralgia, myalgia, joint swelling Neuro: Denies numbness, dizziness, light-headedness Skin: Denies color change, wound, rash Psych: Denies anxiety, depression, hallucinations, agitation, sleep disturbance OBJECTIVE Patient Vitals for the past 24 hrs: BP Temp Temp src Pulse Resp SpO2 03/31/25 1127 -- -- -- -- -- 94 % 03/31/25 1103 99/68 36.1 C (97 F) Temporal 78 18 96 % 03/31/25 0743 129/85 36.3 C (97.3 F) Temporal 79 18 93 % 03/31/25 0300 122/69 36.5 C (97.7 F) Temporal 75 18 93 % 03/30/25 2300 123/78 35.8 C (96.4 F) Temporal 74 18 94 % 03/30/25 1900 128/81 36.9 C (98.4 F) Temporal 78 18 95 % 03/30/25 1550 127/81 36.5 C (97.7 F) Temporal 74 18 96 % Lab Results Component Value Date WBC 10.3 03/31/2025 HGB 12.9 03/31/2025 HCT 42.3 03/31/2025 MCV 98 03/31/2025 PLT 185 03/31/2025 Lab Results Component Value Date CREATININE 0.41 (L) 03/31/2025 BUN 11 03/31/2025 NA 139 03/31/2025 K 3.8 03/31/2025 CL 102 03/31/2025 CO2 29 03/31/2025 PHYSICAL EXAM Physical Exam: General: Resting comfortably, no acute distress. Pleasant, cooperative. Respiratory: Equal and symmetrical chest rise bilaterally. No respiratory distress. Able to comfortably carry conversation. Cardiovascular: 2+ radial pulses bilaterally. Warm and well-perfused extremities. No peripheral edema Abdomen: Non-distended. Skin: No obvious or apparent rashes on exposed skin. Neuro: Alert and oriented to person, place, and time as evidenced by appropriate conversation. No word-finding difficulties. MSK: No obvious deformities. UE strength 5/5 - including shoulder abduction, biceps, triceps, wrist extensors, finger flexors, interossei, and retirement actuary except b/l EF 4+/5 and EE 4/5 LE strength 5/5 - including hip flexors, knee flexors, knee extensors, ankle dorsiflexors, EHL, and ankle plantar flexors except R HF 4/5, L HF 3/5, KE 3/5 Psych: Appropriate mood and affect. IMPRESSION: Melissa Dubose is a 64 y.o. year old female patient with newly diagnosed NSCLC, likely adenocarcinoma, with radiation planned for 04/01. PM&R consulted for rehab appropriateness. Recommendations: # NSCLC - PO: regular/thins - DVT prophylaxis with apixaban, currently held. - Weight bearing status: wbat - Precautions: fall # Pain - Currently:tizanidine 4mg at bedtime, PRN Tylenol, Oxycodone 5mg q6hprn - Wean narcotics as possible. - Monitor and adjust medications as needed. # Immobility - Prevent secondary complications - Skin protection: low air loss mattress, turn q 2 hours in bed, maintain bowel and bladder continence/containment - Prevention of pulmonary complications: incentive spirometry and pulmonary toileting - Maintain adequate nutrition and hydration # Impaired mobility and Impaired independence with ADLs and I/ADLs - Continue PT, working on bed mobility, transfers, balance, endurance, strength, gait, eval for appropriate assistive device - Continue OT, working on functional cognition, functional mobility, upper limb strength/coordination, balance, endurance, eval for appropriate adaptive equipment, ADLs, and I/ADLs. # Dispo - Patient would benefit from an acute inpatient rehab stay to help in transitioning patient home. BUT - If chemotherapy/radiotherapy planned, this will need to be temporized around proposed period of inpatient rehab stay when ready. Patient will not be able to get chemotherapy infusions or radiation therapy while in rehab. - If treatment is unable to be temporized around acute rehab stay, SNF is recommended. - Goals of acute rehab stay would include improved strength, coordination, mobility, ADL independence - Ongoing PT/OT in an acute inpatient rehab setting would improve functional outcomes. - Patient is able and willing to participate in therapy for 3 hours/day, 5 days/week. - Patient also requires physician supervision for monitoring ongoing medical issues. - Must be medically stable with no further planned medical interventions prior to transfer. - For questions, please contact via [place] We will follow along with you. Thank you for the consult. Capo Bolanos DO, MBA, PGY-4 Physical Medicine and Rehabilitation Available via [place] Patient seen and examined with attending Dr. Mariano Clark, who agrees with assessment and plan. NOTE: This note is not finalized until attending reviews and signs. Supervisory note: Seen with Dr Manish Bolanos, resident. I saw and evaluated the patient. I personally obtained the back and critical portions of the history and physical exam. I reviewed the resident's documentation and discussed the patient with the resident. I agree with the resident's medical decision making as documented in the resident's note. Left LE already weak since prior heart surgery - looks like possible plexopathy/femoral neuropathy by exam, but superimposed on deconditioning and b/l LE weakness. Can't to acute rehab while getting chemo OR XRT, so sounds like plan should be SNF. She'd much rather be close to home in [facility] and I suspect slower pace of rehab will be more appropriate and could be done there. Acute rehab at [facility] in [facility] still require no chemo.XRT but should refer there IF she gets a 2wk window between treatment. We'll follow meanwhile. Also - consider adding gabapentin to minimize opiates. And consider d/c atorvastatin given chance of myalgia / myopathy and polypharmacy - or add co-Q10 100 hs Mariano Clark M.D, FAAPMR, R-MSK Chief, Division of PM&R Board Certified in PM&R, Sports Medicine and Musculoskeletal Ultrasound Associated Order(s): IP CONSULT TO RADIATION ONCOLOGY Images from the original note were not included. Radiation Oncology Inpatient Consult Patient Name: Melissa Dubose : 1960 Referring Provider: Maryana Alejandro DO Primary Care Provider: Madison Magana MD Care Team: Patient Care Team: Madison Magana MD as PCP - General (Family Medicine) Date of Service: 03/29/25 SUBJECTIVE History of Present Illness: This is a 64-year-old female with a history of CAD, HTN, A-fib, DM 2, heart failure, ischemic cardiomyopathy, COPD, tobacco use, the presents to OSH 03/21 complaining of shortness of breath and right-sided chest discomfort. CT imaging identified a right hilar mass measuring 5 cm, invading the mediastinum. The patient required intubation, with transfer to [facility] MICU. On 03/24 the patient proceeded with bronchoscopy, noting extrinsic compression of the right mainstem s/p biopsy and stenting. Pathology has returned findings of adenocarcinoma, with PD-L1 90%. MRI brain obtained for staging is unremarkable. CT imaging of the abdomen and pelvis identified left perihepatic and left adrenal lesion suspicious for M1 disease. Radiation oncology has been asked to this with treatment planning. Today, the patient is found to be resting comfortably. She is supported with supplemental oxygen. Her father is at bedside and able to assist with collateral. The patient endorses cough with progressive shortness of breath over multiple weeks. She also describes having right chest discomfort for multiple weeks. She does not report having any palpitations or syncope. Over the last 24 hours she has developed some diarrhea, which she believes is related to antibiotic therapy for pneumonia. She also complains of some discomfort in the middle of her back without perceived neurologic changes. She does feel very deconditioned as she has not been out of bed for multiple days. Prior Radiotherapy: no Current Systemic Treatment: no Presence of Pacemaker or ICD: no Past Medical History: Medical History[1] Past Surgical History: Surgical History[2] Family History: Cancer-related family history is not on file. Social History: Social History[3] Allergies: Allergies[4] Medications: Current Medications[5] Review of Systems: Patient complains of fatigue and generalized weakness, she has had a cough since extubation that is nonproductive. She does not complain of any abdominal pain however has had some diarrhea since initiating antibiotics, no urinary changes, some musculoskeletal discomfort in her mid back without neurologic changes, no abnormal bleeding. Performance Status: The Karnofsky performance scale today is 50, Requires considerable assistance and frequent medical care (ECOG equivalent 2). OBJECTIVE Physical Exam: BP 126/82 (BP Location: Right arm, Patient Position: Lying) Pulse 65 Temp 36.2 C (97.2 F) (Temporal) Resp 16 Ht 1.778 m (5' 10 ) Wt 107 kg (235 lb 0.2 oz) SpO2 99% BMI 33.72 kg/m General: awake, alert, resting comfortably, currently supported with supplemental oxygen, she appears deconditioned HEENT: pupils equal and round, no scleral icterus Pulmonary: Breathing comfortably at rest Cardiac: regular rate Abdomen: soft, nondistended, non tender to palpation EXT: no peripheral edema, no asymmetry noted MSK: no focal joint swelling noted Neuro: A&O x 3, cranial nerves II through XII grossly intact, sensation and strength intact Psych: Normal affect Laboratory Review: 03/29/25801 Renal function panel Collected: 03/29/25529 Final result Specimen: Blood, Venous Glucose 83 mg/dL Urea Nitrogen 17 mg/dL Sodium 138 mmol/L Creatinine 0.50 mg/dL Potassium 3.6 mmol/L eGFR >90 mL/min/1.73m*2 Chloride 97 Low mmol/L Calcium 9.1 mg/dL Bicarbonate 29 mmol/L Phosphorus 2.8 mg/dL Anion Gap 16 mmol/L Albumin 3.0 Low g/dL 03/29/25801 Magnesium Collected: 03/29/25529 Final result Specimen: Blood, Venous Magnesium 2.02 mg/dL 03/29/25712 CBC and Auto Differential Collected: 03/29/25529 Final result Specimen: Blood, Venous WBC 9.8 x10*3/uL Immature Granulocytes %, Automated 0.5 % nRBC 0.0 /100 WBCs Lymphocytes % 10.6 % RBC 4.24 x10*6/uL Monocytes % 9.0 % Hemoglobin 13.2 g/dL Eosinophils % 3.2 % Hematocrit 41.7 % Basophils % 0.4 % MCV 98 fL Neutrophils Absolute 7.47 x10*3/uL MCH 31.1 pg Immature Granulocytes Absolute, Automated 0.05 x10*3/uL MCHC 31.7 Low g/dL Lymphocytes Absolute 1.04 Low x10*3/uL RDW 12.4 % Monocytes Absolute 0.88 x10*3/uL Platelets 205 x10*3/uL Eosinophils Absolute 0.31 x10*3/uL Neutrophils % 76.3 % Basophils Absolute 0.04 x10*3/uL Pathology Review: urgical Pathology Exam: [id number] Order: [id number] Collected 03/24/2025 13:34 Status: Final result Dx: Acute hypoxic respiratory failure Test Result Released: No (inaccessible in [facility]) 0 Result Notes Component FINAL DIAGNOSIS A. LYMPH NODE, PULMONARY 4R, BIOPSY: - Non-small cell carcinoma, favor adenocarcinoma. See note. - See concurrent cytology specimen ([id number]). Note: Tumor cells are positive for TTF-1 (8G7G3) and CK7, while they are negative for p40. The findings support the above diagnosis. PD-L1 immunostain results are reported below. Tumor Block: A1 Preliminary Assessment of Specimen Adequacy for Ancillary Testing: Adequate Viable tumor nuclei: 20% senior wind energy consultant: Dr. Peter Shirley. at 1048 EDT By the signature on this report, the individual or group listed as making the Final Interpretation/Diagnosis certifies that they have reviewed this case. Comment PD-L1 22C3 by Immunohistochemistry with Interpretation, pembrolizumab (KEYTRUDA) Block used: A1 Interpretation: High Expression Tumor Proportion Score (TPS): 90% Imaging: CT CAP 03/28/25 IMPRESSION: CHEST: 1. Large right hilar mass with contiguous extension into the mediastinum and intraluminal extension into the posterior aspect of the SVC with associated mediastinal and bilateral supraclavicular lymphadenopathy and right upper lobe collapse consistent with biopsy-proven lung malignancy with metastatic lymphadenopathy. Loss of fat planes with the esophagus and ascending aorta as described above. 2. Interval placement of a right bronchial stent with resolution of the bronchial narrowing. 3. Moderate right pleural effusion with the adjacent lung atelectasis. 4. Tiny soft tissue nodules in the right and left anterior chest wall which are nonspecific. Metastatic disease can not be excluded. ABDOMEN-PELVIS: 1. Left adrenal 2 cm nodule and hypodense lesion in the left anterior perihepatic space abutting the capsule which are indeterminate. Metastasis can not be excluded. 2. Prominent portacaval and aortocaval lymph nodes which are indeterminate. Attention at follow-up is recommended. 3. Left nephrolithiasis. MRI brain 03/28/25 IMPRESSION: No acute intracranial abnormality. No evidence of intracranial metastases. ASSESSMENT: This is a 64-year-old female with multiple chronic health problems that presents to OSH 03/21 with hypoxic respiratory failure and CT findings of a right hilar mass invading the mediastinum. The patient underwent bronchoscopy on 03/24 with stenting of right mainstem. Pathology has returned adenocarcinoma with PD-L1 90%. MRI brain is unremarkable for metastatic disease. CT chest, abdomen, pelvis shows additional findings of bilateral supraclavicular LAD, right pleural effusion, left perihepatic and left adrenal lesions. Radiation oncology has been asked to assist with treatment planning. PLAN: The patient was discussed with my attending physician, Dr. Chappell. Imaging results and indications for radiotherapy were reviewed with the patient and her father. Staging remains incomplete. Perihepatic and adrenal lesions are concerning for M1 disease. Staging can affect our treatment recommendations, definitive is palliative dosing. We will plan to discuss further to determine next steps in relation to patient's disposition for discharge. Tentative plans to consider follow-up coordination with [facility]'s radiation oncology in [place]. I spent 55 minutes in the professional and overall care of this patient. [1] Past Medical History: Diagnosis Date A-fib (Multi) Adrenal mass (Multi) Anxiety CAD (coronary artery disease) DM (diabetes mellitus) (Multi) PANDEY (dyspnea on exertion) GERD (gastroesophageal reflux disease) GIB (gastrointestinal bleeding) HF (heart failure) Hilar mass Right, 5x4.7cm invading into the adjacent mediastinum about the lateral aspect of the trachea narrowing the R mainstem bronchus HTN (hypertension) HTN (hypertension) Ischemic cardiomyopathy Kidney stones NSTEMI (non-ST elevated myocardial infarction) (Multi) OAB (overactive bladder) SOB (shortness of breath) [2] Past Surgical History: Procedure Laterality Date BACK SURGERY CARDIAC CATHETERIZATION CARDIOVERSION SECTION, CLASSIC CORONARY ARTERY BYPASS GRAFT 2016 TONSILLECTOMY [3] Social History Tobacco Use Smoking status: Unknown Vaping Use Vaping status: Every Day Substance Use Topics Alcohol use: Defer [4] No Known Allergies [5] Current Facility-Administered Medications: albuterol 2.5 mg /3 mL (0.083 %) nebulizer solution 2.5 mg, 2.5 mg, nebulization, q6h, Alaina Márquez MD, 2.5 mg at 03/28/252109 ampicillin-sulbactam (Unasyn) 3 g in sodium chloride 0.9% IV 100 mL, 3 g, intravenous, q6h, Alaina Márquez MD, Stopped at 03/29/25 1111 apixaban (Eliquis) tablet 5 mg, 5 mg, oral, BID, Alaina Márquez MD, 5 mg at 03/29/25 1041 atorvastatin (Lipitor) tablet 40 mg, 40 mg, oral, Daily, Alaina Márquez MD, 40 mg at 03/29/25 1041 dextrose 50 % injection 12.5 g, 12.5 g, intravenous, q15 min PRN, Alaina Márquez MD dextrose 50 % injection 25 g, 25 g, intravenous, q15 min PRN, Alaina Márquez MD ezetimibe (Zetia) tablet 10 mg, 10 mg, oral, Daily, Alaina Márquez MD, 10 mg at 03/29/25 1042 glucagon (Glucagen) injection 1 mg, 1 mg, intramuscular, q15 min PRN, Alaina Márquez MD glucagon (Glucagen) injection 1 mg, 1 mg, intramuscular, q15 min PRN, Alaina Márquez MD insulin lispro injection 0-5 Units, 0-5 Units, subcutaneous, q4h, Alaina Márquez MD, 1 Units at 03/26/252040 ipratropium-albuteroL (Duo-Neb) 0.5-2.5 mg/3 mL nebulizer solution 3 mL, 3 mL, nebulization, q4h PRN, Alaina Márquez MD metoprolol tartrate (Lopressor) tablet 25 mg, 25 mg, oral, BID, Alaina Márquez MD, 25 mg at 03/29/25 1040 ondansetron (Zofran) tablet 4 mg, 4 mg, oral, q8h PRN OR ondansetron (Zofran) injection 4 mg, 4 mg, intravenous, q8h PRN, Alaina Márquez MD, 4 mg at 03/29/25 0854 oxygen (O2) therapy, , inhalation, Continuous PRN - O2/gases, Alaina Márquez MD, 8 L/min at 03/28/25 0941 pantoprazole (ProtoNix) EC tablet 40 mg, 40 mg, oral, Daily before breakfast, 40 mg at 03/28/25 0953 OR [DISCONTINUED] esomeprazole (NexIUM) suspension 40 mg, 40 mg, nasoduodenal tube, Daily before breakfast OR [DISCONTINUED] pantoprazole (Protonix) injection 40 mg, 40 mg, intravenous, Daily before breakfast, Ramya Alvarez MD, 40 mg at 03/27/25 0816 pantoprazole (Protonix) injection 40 mg, 40 mg, intravenous, Daily before breakfast, Alaina Márquez MD, 40 mg at 03/29/25 1040 phenyleph-min oil-petrolatum (Preparation H) 0.25-14-74.9 % rectal ointment, , rectal, 4x daily PRN, Linda Echols DO, Given at 03/29/25 0127 polyethylene glycol (Glycolax, Miralax) packet 17 g, 17 g, oral, Daily, Alaina Márquez MD, 17 g at 03/25/25 0948 prochlorperazine (Compazine) injection 10 mg, 10 mg, intravenous, q6h PRN, Alaina Márquez MD, 10 mg at 03/29/25 1043 sacubitriL-valsartan (Entresto) 97-103 mg per tablet 1 tablet, 1 tablet, oral, BID, Merlin Sidhu MD sodium chloride 3 % nebulizer solution 3 mL, 3 mL, nebulization, q6h FUNMI, Alaina Márquez MD, 3 mL at 03/28/25 0925 spironolactone (Aldactone) tablet 12.5 mg, 12.5 mg, oral, Daily, Merlin Sidhu MD tiZANidine (Zanaflex) tablet 4 mg, 4 mg, oral, Nightly PRN, Linda Echols DO, 4 mg at 03/29/25 0121 Associated Order(s): Inpatient consult to [facility] Adult Supportive Oncology SUPPORTIVE AND PALLIATIVE ONCOLOGY CONSULT SERVICE DATE: 03/28/2025 ASSESSMENT/PLAN: Melissa Dubose is a 64 y.o. female diagnosed with large hilar mass with obstruction of the BECCA bronchus s/p biopsy and bronchial stent with preliminary pathology showing NSCLC . PMH significant for CAD (s/p CABG 2015), HTN, Afib, DM2, HFrEF 2/2 ischemic cardiomyopathy. Presented to [place] [address]/13 for SOB and hypoxia. Intubated and transferred to [facility] 03/22/2025 for further evaluation and management of AHRF and new right hilar mass. Extubated 03/26, transferred from MICU on 03/28/25. Supportive and Palliative Oncology is consulted for pain management and introduction to Supportive and Palliative Oncology services. Symptom Management Plan: Recommended changes are bolded Pain: Frontal headache pain related to critical illness vs caffeine withdrawal vs NPO status vs possibility of brain mets pending MRI brain, somatic, sub-optimally controlled Home regimen: Muscle Relaxers tizanidine 4 mg qhs Intolerances/previously tried: none Risk factors: need to assess Renal function WNL and Hepatic function WNL NPO pending swallow eval Continue Acetaminophen 1000 mg IV q6h scheduled MRI brain pending, new MCNALLY and nausea iso new lung malignancy Could consider spot dosing of ketorolac 15 mg IV if acetaminophen not holding pain under control (on Eliquis) If severe iso NPO status can start Hydromorphone 0.2 mg IV q4h prn severe pain Once able to take PO could try fioricet if drinking coffee doesn't help Restart home tizanidine 4 mg PO at bedtime once able Nausea: Intermittent nausea without vomiting related to malignancy, NPO status, r/o brain mets Home regimen: none QTc: within normal limits 03/1449 Suboptimally controlled Continue Ondansetron 4 mg IV/PO q8h prn nausea first line Start prochlorperazine 10 mg IV q6h prn nausea second line Constipation At risk for constipation related to medication side effects (including opioids and ondansetron), decreased oral intake, and prolonged immobility in the setting of hospitalization , currently not constipated Usual bowel pattern: unknown Home regimen: unknown* LBM 03/27 Monitor, currently NPO Goal to have BM without straining q48-72h, adjust regimen as needed Disposition: Please start the process of having prior authorization with meds to beds deliver medications to patient prior to discharge via [facility] pharmacy. Prescriptions will need to be sent 48-72 hours prior to discharge so that a prior authorization can be completed. Discharge date: unknown pending acute issues Will assess if patient needs an appointment with Outpatient Supportive Oncology as appropriate SIGNATURE: BERNADETTE Gilmore, DNP PAGER/CONTACT: Contact information: Supportive and Palliative Oncology Saturday-Saturday 8 AM-5 PM [employer] Private Secure chat or pager [phone]. After hours and weekends: pager [phone] Inpatient consult to [facility] Adult Supportive Oncology Consult performed by: Nova Pierce, SR. OPERATIONS MANAGER-ENVIRONMENTAL PROFESSIONAL, DNP Consult ordered by: Nneka Van MD PALLIATIVE MEDICINE OUTPATIENT PROVIDER: None CURRENT ATTENDING PROVIDER: Nneka Van MD Medical Oncologist: No care rock climbing team member to display Radiation Oncologist: No care rock climbing team member to display Primary Physician: Madison Magana [phone] REASON FOR CONSULT/CHIEF CONSULT COMPLAINT: pain management and introduction to Supportive and Palliative Oncology services Subjective HISTORY OF PRESENT ILLNESS: Melissa Dubose is a 64 y.o. female diagnosed with large hilar mass with obstruction of the BECCA bronchus s/p biopsy and bronchial stent with preliminary pathology showing NSCLC . PMH significant for CAD (s/p CABG 2015), HTN, Afib, DM2, HFrEF 2/2 ischemic cardiomyopathy. Presented to [facility] 03/21 for SOB and hypoxia. Intubated and transferred to [facility] 03/22/2025 for further evaluation and management of AHRF and new right hilar mass. Extubated 03/26, transferred from MICU on 03/28/25. Supportive and Palliative Oncology is consulted for pain management and introduction to Supportive and Palliative Oncology services. Oncology and Radiation Oncology consulted, pt undergoing full oncologic workup. While intubated pt was sedated with precedex, propofol, and fentanyl 50-150 mcg/h for 5 days. NPO until swallow eval. Pt reports moderate to severe frontal headache and frequent intermittent nausea which are all new symptoms for her. Reports tylenol is pretty helpful. Pain Assessment: Onset: Days Location: frontal headache Duration: Constant Characteristics: Rating: Mild Descriptors: like a really bad headache Aggravating: none Relieving: Analgesics Intolerances:Melissa Dubose has no known allergies. Interference with Function: Somewhat Barriers to Pain Management: None Opioid Requirements Past 24 h opioid requirements (03/27/25 at 0800 to 03/28/25 at 0800): 0 Total 24h OME use: 0 OARRS/PDMP reviewed 03/28/25 no aberrant behavior noted. Symptom Assessment: Pain:very much Headache: very much Lack of energy: very much Difficulty sleeping: none Pain in mouth/swallowing: none Dry mouth: very much Taste changes: none Shortness of breath: a little Lack of appetite: somewhat Nausea: somewhat Vomiting: none Constipation: none Diarrhea: none Sore muscles: none Numbness or tingling in hands/feet/other: none Weight loss: none ECOG Performance Status: [] 0 Fully active, able to carry on all pre-disease performance without restriction [] 1 Restricted in physically strenuous activity but ambulatory and able to carry out work of a light or sedentary nature, e.g., light house work, office work [] 2 Ambulatory and capable of all selfcare but unable to carry out any work activities; up and about more than 50% of waking hours [x] 3 Capable of only limited selfcare; confined to bed or chair more than 50% of waking hours [] 4 Completely disabled; cannot carry on any selfcare; totally confined to bed or chair [] 5 Information obtained from: chart review, interview of patient, and discussion with primary team __ Oncology History No history exists. Medical History[1] Surgical History[2] Family History[3] SOCIAL HISTORY: Marital Status , Children 1 daughter, 1 foster son, and Support system sisters Social History: Alcohol use questions deferred to the physician. REVIEW OF SYSTEMS: Review of systems negative unless noted in HPI. Objective Lab Results Component Value Date WBC 9.5 03/28/2025 HGB 13.0 03/28/2025 HCT 39.6 03/28/2025 MCV 96 03/28/2025 PLT 200 03/28/2025 Lab Results Component Value Date GLUCOSE 100 (H) 03/28/2025 CALCIUM 9.1 03/28/2025 NA 141 03/28/2025 K 3.8 03/28/2025 CO2 34 (H) 03/28/2025 CL 97 (L) 03/28/2025 BUN 21 03/28/2025 CREATININE 0.59 03/28/2025 Lab Results Component Value Date ALT 8 03/22/2025 AST 9 03/22/2025 ALKPHOS 70 03/22/2025 BILITOT 0.5 03/22/2025 Estimated Creatinine Clearance: 125 mL/min (by C-G formula based on SCr of 0.59 mg/dL). Encounter Date: 03/22/25 ECG 12 lead Result Value Ventricular Rate 85 Atrial Rate 85 VA Interval 142 QRS Duration 118 QT Interval 378 QTC Calculation(Bazett) 449 P [place] 27 R [place] 104 T [place] 102 QRS Count 14 Q Onset 221 P Onset 150 P Offset 192 T Offset 410 QTC Fredericia 424 Narrative Normal sinus rhythm with sinus arrhythmia Incomplete right bundle branch block Possible Right ventricular hypertrophy Septal infarct , age undetermined ST & T wave abnormality, consider anterior ischemia Abnormal ECG Confirmed by Roc Ling ([id number]) on 03/24/2025 10:28:48 AM Wt Readings from Last 5 Encounters: 03/28/25 107 kg (235 lb 0.2 oz) 03/21/25 104 kg (229 lb 4.5 oz) Current Outpatient Medications Medication Instructions acetaminophen (TYLENOL) 650 mg, oral, Every 6 hours PRN amLODIPine (NORVASC) 10 mg, oral, Daily apixaban (ELIQUIS) 5 mg, oral, 2 times daily atorvastatin (LIPITOR) 40 mg, oral, Daily canagliflozin (INVOKANA) 100 mg, oral, Daily before breakfast ezetimibe (ZETIA) 10 mg, oral, Daily lidocaine (Lidoderm) 5 % patch 1 patch, transdermal, Daily PRN, Remove & discard patch within 12 hours or as directed by MD. metFORMIN (GLUCOPHAGE) 500 mg, oral, 2 times daily (morning and late afternoon) metoprolol succinate XL (TOPROL-XL) 100 mg, oral, Daily, Do not crush or chew. pantoprazole (PROTONIX) 40 mg, oral, Daily before breakfast, Do not crush, chew, or split. sacubitriL-valsartan (Entresto) 97-103 mg tablet 1 tablet, oral, 2 times daily SITagliptin phosphate (JANUVIA) 100 mg, oral, Daily spironolactone (ALDACTONE) 12.5 mg, oral, Daily tiZANidine (ZANAFLEX) 4 mg, oral, Nightly Scheduled medications Scheduled Medications[4] Continuous medications Continuous Medications[5] PRN medications dextrose, 12.5 g, q15 min PRN dextrose, 25 g, q15 min PRN glucagon, 1 mg, q15 min PRN glucagon, 1 mg, q15 min PRN ipratropium-albuteroL, 3 mL, q4h PRN ondansetron, 4 mg, q8h PRN Or ondansetron, 4 mg, q8h PRN oxygen, , Continuous PRN - O2/gases Allergies: RX Allergies[6] PHYSICAL EXAMINATION: Vital Signs: Vital signs reviewed Vitals: 03/28/25 1304 BP: 127/77 Pulse: 60 Resp: 18 Temp: 36.4 C (97.5 F) SpO2: 96% Pain Score: 3 Physical Exam Vitals reviewed. Constitutional: General: She is not in acute distress. Appearance: She is ill-appearing. HENT: Head: Normocephalic and atraumatic. Mouth/Throat: Mouth: Mucous membranes are dry. Eyes: Conjunctiva/sclera: Conjunctivae normal. Pulmonary: Effort: No accessory muscle usage or respiratory distress. Comments: Intermittent cough, weak/hoarse voice Abdominal: General: There is no distension. Neurological: General: No focal deficit present. Mental Status: She is alert and oriented to person, place, and time. Psychiatric: Mood and Affect: Mood normal. Behavior: Behavior normal. Thought Content: Thought content normal. Judgment: Judgment normal. PALLIATIVE CARE ENCOUNTER: Introduction to Supportive and Palliative Oncology: Spoke with patient and sister/MY at bedside Palliative care was introduced as a service for patients with advanced malignancy to help with symptoms, assist with advance care planning/advance directives, navigate complex decision making, improve quality of life for patients, and provide support for both patients and families Discussed patient's understanding of diagnosis, proposed plan of treatment, and preferences in decision-making including Healthcare Power of Telephone Sterilizer. Introduced the role and philosophy of Supportive and Palliative oncology in the evaluation and management of symptoms during cancer treatment and qualifications for outpatient follow up Provided printed information and resource packet that includes: NCCN Palliative Care 2022 booklet Supportive and Palliative Oncology team flyer [place] Advance Directives forms Caregiver Resource list List of local and national resources for financial, legal, caregiver support Medical Decision Making/Goals of Care/Advance Care Planning: Patient's current clinical condition, including diagnosis, prognosis, and management plan, and goals of care were discussed. Life limiting disease: lung mass, AHRF Family: Supportive father, children, sisters Performance status: Major limitations due to disease process Joys/meaning/strength: Family and [place] Understanding of health: Demonstrates some understanding of disease process, did not readily share what has been discussed Code status discussion: Discussed previously and Full code Advance Directives Existence of Advance Directives:Non, wants to think about completing them Decision maker: Discussed [place] hierarchy of legal next of kin and that typically adult children are surrogate decision makers. At this time she would like her father Ben to be her surrogate decision maker while she thinks about completing HCPOA. Paperwork provided for review Supportive Interventions: Will discuss at a future visit Signature and billing: Medical complexity was high level due to due to complexity of problems, extensive data review, and high risk of management/treatment. DATA Diagnostic tests and information reviewed for today's visit: Conversation with primary team, Most recent labs and imaging results, Most recent EKG, Medications Some elements copied from Dr. Styles's note on 03/27/25, the elements have been updated and all reflect current decision making from today, 03/28/2025. Plan of Care discussed with: Provider and Patient Thank you for asking Supportive and Palliative Oncology to assist with care of this patient. Recommendations will be communicated back to the consulting service by way of shared electronic medical record/secure chat/email or [email or web address]. We will continue to follow. Please contact us for additional questions or concerns. SIGNATURE: BERNADETTE Gilmore DNP PAGER/CONTACT: Contact information: Supportive and Palliative Oncology Saturday-Saturday 8 AM-5 PM [employer] Secure chat or pager [phone]. After hours and weekends: pager [phone] [1] Past Medical History: Diagnosis Date A-fib (Multi) Adrenal mass (Multi) Anxiety CAD (coronary artery disease) DM (diabetes mellitus) (Multi) PANDEY (dyspnea on exertion) GERD (gastroesophageal reflux disease) GIB (gastrointestinal bleeding) HF (heart failure) Hilar mass Right, 5x4.7cm invading into the adjacent mediastinum about the lateral aspect of the trachea narrowing the R mainstem bronchus HTN (hypertension) HTN (hypertension) Ischemic cardiomyopathy Kidney stones NSTEMI (non-ST elevated myocardial infarction) (Multi) OAB (overactive bladder) SOB (shortness of breath) [2] Past Surgical History: Procedure Laterality Date BACK SURGERY CARDIAC CATHETERIZATION CARDIOVERSION SECTION, CLASSIC CORONARY ARTERY BYPASS GRAFT 2016 TONSILLECTOMY [3] No family history on file. [4] acetaminophen, 1,000 mg, intravenous, q6h albuterol, 2.5 mg, nebulization, q6h ampicillin-sulbactam, 3 g, intravenous, q6h apixaban, 5 mg, oral, BID atorvastatin, 40 mg, oral, Daily ezetimibe, 10 mg, oral, Daily insulin lispro, 0-5 Units, subcutaneous, q4h metoprolol tartrate, 25 mg, oral, BID pantoprazole, 40 mg, oral, Daily before breakfast [START ON 03/29/2025] pantoprazole, 40 mg, intravenous, Daily before breakfast polyethylene glycol, 17 g, oral, Daily sacubitriL-valsartan, 1 tablet, oral, BID sodium chloride, 3 mL, nebulization, q6h FUNMI [5] [6] No Known Allergies Associated Order(s): IP CONSULT TO ONCOLOGY Reason For Consult Preliminary NSCLC History Of Present Illness Melissa Dubose is a 64 y.o. female presenting with PMHx CAD (s/p CABG 2015), HTN, Afib, DM2, HFrEF 2/2 ischemic cardiomyopathy admitted for acute hypoxic respiratory failure. Pt presented to [facility] 03/21 for 1 week of SOB and R sided chest pain, found to be hypoxic with SpO2 in 80s requiring BiPAP. Treated for pneumonia and COPD exacerbation with minimal improvement, and CT imaging showed new R hilar mass 5 x 4.7cm in size invading into mediastinum and narrowing R mainstem bronchus with RUL occlusion and partial RLL atelectasis. After worsening hypoxia, she was intubated and transferred to [facility] on 03/22 and admitted to MICU. Underwent bronchoscopy 03/25 with biopsy, with bedside initial pathologic impression of NSCLC, final pathology pending. She had stent placement and was started on diuresis for bilateral pleural effusions. She has tolerated weaning of ventilator settings while at [facility]. Oncology was consulted for workup and treatment of suspected NSCLC. At bedside, pt is asleep and on HFNC. She awakens easily and appears disgruntled and uninterested in discussing the recent developments. She reports her breathing is better but complains of a severe headache. Past Medical History She has a past medical history of A-fib (Multi), Adrenal mass (Multi), Anxiety, CAD (coronary artery disease), DM (diabetes mellitus) (Multi), PANDEY (dyspnea on exertion), GERD (gastroesophageal reflux disease), GIB (gastrointestinal bleeding), HF (heart failure), Hilar mass, HTN (hypertension), HTN (hypertension), Ischemic cardiomyopathy, Kidney stones, NSTEMI (non-ST elevated myocardial infarction) (Multi), OAB (overactive bladder), and SOB (shortness of breath). Surgical History She has a past surgical history that includes Coronary artery bypass graft; section, classic; Cardioversion; Back surgery; Cardiac catheterization; and Tonsillectomy. Social History SheAlcohol use questions deferred to the physician. No history on file for tobacco use and drug use. Family History Family History[1] Allergies Patient has no known allergies. Physical Exam Gen: well-developed obese woman in mild distress from headache Eyes: anicteric, no injection, no discharge, pupils equal and reactive HENT: NCAT, no discharge from orifices, oral mucosa moist, dentition adequate, no masses in neck Heart: RRR, no m/r/g, no JVD, trace pitting edema in BL Les Lungs: CTAB with vesicular breath sounds on L, thick rhonchi and crackles on R, on HFNC Abdo: soft, non-distended, BS normal, no TTP, no masses or organomegaly MSK: no deformities of soft tissues or joints Neuro: Aox4 Skin: warm, dry, and intact throughout Psych: disinterested mood and affect, no phobias/delusions/hallucinations Last Recorded Vitals Blood pressure 126/84, pulse 75, temperature 36.5 C (97.7 F), temperature source Temporal, resp. rate 15, height 1.778 m (5' 10 ), weight 111 kg (245 lb 2.4 oz), SpO2 98%. Relevant Results Results for orders placed or performed during the hospital encounter of 03/22/25 (from the past 24 hours) POCT GLUCOSE Result Value Ref Range POCT Glucose 195 (H) 74 - 99 mg/dL Magnesium Result Value Ref Range Magnesium 1.83 1.60 - 2.40 mg/dL Renal Function Panel Result Value Ref Range Glucose 152 (H) 74 - 99 mg/dL Sodium 142 136 - 145 mmol/L Potassium 4.0 3.5 - 5.3 mmol/L Chloride 101 98 - 107 mmol/L Bicarbonate 29 21 - 32 mmol/L Anion Gap 16 10 - 20 mmol/L Urea Nitrogen 18 6 - 23 mg/dL Creatinine 0.74 0.50 - 1.05 mg/dL eGFR >90 >60 mL/min/1.73m*2 Calcium 9.5 8.6 - 10.6 mg/dL Phosphorus 3.1 2.5 - 4.9 mg/dL Albumin 3.2 (L) 3.4 - 5.0 g/dL POCT GLUCOSE Result Value Ref Range POCT Glucose 163 (H) 74 - 99 mg/dL CBC and Auto Differential Result Value Ref Range WBC 11.6 (H) 4.4 - 11.3 x10*3/uL nRBC 0.0 0.0 - 0.0 /100 WBCs RBC 4.24 4.00 - 5.20 x10*6/uL Hemoglobin 13.3 12.0 - 16.0 g/dL Hematocrit 40.0 36.0 - 46.0 % MCV 94 80 - 100 fL MCH 31.4 26.0 - 34.0 pg MCHC 33.3 32.0 - 36.0 g/dL RDW 13.2 11.5 - 14.5 % Platelets 192 150 - 450 x10*3/uL Neutrophils % 82.0 40.0 - 80.0 % Immature Granulocytes %, Automated 0.4 0.0 - 0.9 % Lymphocytes % 7.5 13.0 - 44.0 % Monocytes % 6.9 2.0 - 10.0 % Eosinophils % 2.9 0.0 - 6.0 % Basophils % 0.3 0.0 - 2.0 % Neutrophils Absolute 9.49 (H) 1.20 - 7.70 x10*3/uL Immature Granulocytes Absolute, Automated 0.05 0.00 - 0.70 x10*3/uL Lymphocytes Absolute 0.87 (L) 1.20 - 4.80 x10*3/uL Monocytes Absolute 0.80 0.10 - 1.00 x10*3/uL Eosinophils Absolute 0.34 0.00 - 0.70 x10*3/uL Basophils Absolute 0.03 0.00 - 0.10 x10*3/uL Magnesium Result Value Ref Range Magnesium 1.88 1.60 - 2.40 mg/dL Renal function panel Result Value Ref Range Glucose 133 (H) 74 - 99 mg/dL Sodium 146 (H) 136 - 145 mmol/L Potassium 3.6 3.5 - 5.3 mmol/L Chloride 103 98 - 107 mmol/L Bicarbonate 31 21 - 32 mmol/L Anion Gap 16 10 - 20 mmol/L Urea Nitrogen 20 6 - 23 mg/dL Creatinine 0.71 0.50 - 1.05 mg/dL eGFR >90 >60 mL/min/1.73m*2 Calcium 9.5 8.6 - 10.6 mg/dL Phosphorus 3.1 2.5 - 4.9 mg/dL Albumin 3.1 (L) 3.4 - 5.0 g/dL POCT GLUCOSE Result Value Ref Range POCT Glucose 130 (H) 74 - 99 mg/dL XR chest 1 view Addendum Date: 03/26/2025 Interpreted By: Lu Betancur, ADDENDUM: Right upper lobe atelectasis secondary to right hilar mass/adenopathy. Signed by: Lu Betancur 03/26/2025 4:39 PM -------- ORIGINAL REPORT -------- Dictation workstation: [id number] Result Date: 03/26/2025 Interpreted By: Lu Betancur, STUDY: XR CHEST 1 VIEW; 03/26/2025 9:07 am INDICATION: Signs/Symptoms:evaluation of bilateral pleural effusions after diuresis. COMPARISON: 03/25/2025 ACCESSION NUMBER(S): [id number] ORDERING CLINICIAN: NUNO GUILLEN FINDINGS: AP radiograph of the chest was provided. Insert mediastinum Enteric tube courses past the diaphragm and terminates outside the field of view. Endotracheal tube terminates 5.9 cm from the melvin. CARDIOMEDIASTINAL SILHOUETTE: Choose tube LUNGS: Minimal increased markings in a bibasilar distribution, [id number]. Blunting of the right costophrenic angle. No evidence of a pneumothorax. ABDOMEN: No remarkable upper abdominal findings. BONES: No acute osseous changes. 1. Bibasilar atelectasis/edema. Small right pleural effusion. No evidence of pneumothorax. 2. Medical devices as above MACRO: None Signed by: Lu Betancur 03/26/2025 4:34 PM Dictation workstation: [id number] Assessment/Plan 64 y.o. female presenting with PMHx CAD (s/p CABG 2015), HTN, Afib, DM2, HFrEF 2/2 ischemic cardiomyopathy admitted for acute hypoxic respiratory failure. She was found to have a large hilar mass with obstruction of the bronchus, now s/p stenting and aggressive diuresis with improvement. Preliminary pathology from biopsy of mass shows NSCLC, and oncology is consulted for workup. Assuming that her pathology finalizes as NSCLC, she will need to complete staging and genetic workup and receive appropriate local and/or systemic therapies. Based on size and invasion of the tumor into mediastinum, she is likely to be a T3-4 tumor, which would place her at least at stage IIB. #Hilar mass, prelim NSCLC Recommendations: -awaiting final pathology report; if finalized as NSCLC, then she can be discharged with no inpatient treatments -obtain CT chest and abdomen w IV contrast -obtain MRI brain wwo contrast -we will request NGS testing and PD-L1 testing off biopsy specimen -consult radiation oncology for consideration of thoracic radiation -if pt prefers follow up in [facility] she can be referred to Dr. Amira Escobedo upon discharge Thank you for the consult. We will continue to follow. Tino Ramírez MD, PhD Hem/onc fellow [id number] I spent 60 minutes in the professional and overall care of this patient. Tino Ramírez MD PhD [1] No family history on file. Cosigned by Alex Wyatt MD at 04/05/2025 8:11 AM EDT Associated Order(s): IP CONSULT TO NUTRITION SERVICES Nutrition Initial Assessment: Nutrition Assessment Reason for Assessment: Admission nursing screening for a score of 2 but also noted that team has started her on TF Patient is a 64 y.o. female presenting with progressive SOB with R-sided chest pain for several months with need for intubation for airway protection. Work-up has showed a R hilar mass invading the adjacent pneumomediastinum. Transferred to [facility] for possible interventional pulmonology eval. She remains intubated and sedated with propofol and fentanyl this morning at RDN visit. 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 Nutrition History: Anthropometrics: Height: 177.8 cm (5' 10 ) IBW/kg (Dietitian Calculated): 68.2 kg Percent of IBW: 152 % Weight History: 03/22/25: 104kg 12/27/23: 122kg (height of 177.8cm also obtained from this date/office visit) She is down 15% in 15months-- no set significance level for this timeframe. Weight Change %: Nutrition Focused Physical Exam Findings: Subcutaneous Fat Loss: Orbital Fat Pads: Well nourished (slightly bulging fat pads) Buccal Fat Pads: Well nourished (full, rounded cheeks) Triceps: Well nourished (ample fat tissue) Muscle Wasting: Temporalis: Well nourished (well-defined muscle) Pectoralis (Clavicular Region): Well nourished (clavicle not visible) Deltoid/Trapezius: Well nourished (rounded appearance at arm, shoulder, neck) Quadriceps: Well nourished (well developed, well rounded) Gastrocnemius: Well nourished (well developed bulbous muscle) Edema: Edema: +1 trace Edema Location: generalized Physical Findings: Skin: Negative Nutrition Significant Labs: A1C: Lab Results Component Value Date HGBA1C 6.6 (H) 03/22/2025 , BG POCT trend: Results from last 7 days Lab Units 03/22/25 0737 POCT GLUCOSE mg/dL 248* , Renal Lab Trend: Results from last 7 days Lab Units 03/22/25 0625 POTASSIUM mmol/L 4.1 PHOSPHORUS mg/dL 4.3 SODIUM mmol/L 136 MAGNESIUM mg/dL 2.22 EGFR mL/min/1.73m*2 87 BUN mg/dL 19 CREATININE mg/dL 0.77 , Vit D: No results found for: VITD25 Nutrition Specific Medications: Scheduled medications ampicillin-sulbactam, 3 g, intravenous, q6h atorvastatin, 40 mg, oral, Daily azithromycin, 500 mg, intravenous, q24h pantoprazole, 40 mg, oral, Daily before breakfast Or esomeprazole, 40 mg, nasoduodenal tube, Daily before breakfast Or pantoprazole, 40 mg, intravenous, Daily before breakfast ezetimibe, 10 mg, oral, Daily [Held by provider] furosemide, 20 mg, oral, Daily insulin lispro, 0-5 Units, subcutaneous, q4h [Held by provider] isosorbide mononitrate ER, 60 mg, oral, Daily metoprolol tartrate, 12.5 mg, oral, BID polyethylene glycol, 17 g, oral, Daily [Held by provider] sacubitriL-valsartan, 1 tablet, oral, BID Continuous medications fentaNYL, 0-300 mcg/hr, Last Rate: 50 mcg/hr (03/22/25 0810) ketamine, 0-2 mg/kg/hr, Last Rate: Stopped (03/22/25 0720) propofol, 5-50 mcg/kg/min, Last Rate: 20 mcg/kg/min (03/22/25 0600) PRN medications PRN Medications[1] I/O: ; Dietary Orders (From admission, onward) Start Ordered 03/22/25908 Enteral feeding with NPO Isosource 1.5; 10 cc/hr; 50; Saline; Every 6 hours Diet effective now Question Answer Comment Tube feeding formula: Isosource 1.5 Tube feeding bolus frequency: 10 cc/hr Tube feeding flush (mL): 50 Flush type: Saline Flush frequency: Every 6 hours 03/22/25 0903/22/25625 May Participate in Room Service With Assistance ( ROOM SERVICE MAY PARTICIPATE WITH ASSISTANCE) Once Question: . Answer: Yes 03/22/25624 Estimated Needs: Total Energy Estimated Needs in 24 hours (kCal): ([id number]) Method for Estimating Needs: MV= 4.7, RMR= 1520 Total Protein Estimated Needs in 24 Hours (g): 90 g Method for Estimating 24 Hour Protein Needs: 1.3 x 68.2kg Nutrition Diagnosis Nutrition Diagnosis Patient has Nutrition Diagnosis: Yes Diagnosis Status (1): New Nutrition Diagnosis 1: Inadequate protein energy intake Related to (1): SOB, chest pain, now intubated As Evidenced by (1): currently NPO with plans for TF via OGT Pt may benefit from a concentrated TF in light of normally being diuresis at home d/t HF (diuresis now being held). Sugars are high but A1c is only 6.6%. Will need good sugar control once she starts on TF. Nutrition Interventions/Recommendations Nutrition Recommendations: 1) For tube feed: Two José Luis HN at start rate of 15mls/hr. While on current rate of propofol, increase once after 6hrs to goal rate of 25mls/hr reached. --> Once off of propofol, increase to new goal of 30mls/hr and order one packet of Pro-Stat AWC once daily. 2) Good control of blood sugars once TF starts. Goal TF with prostat (off propofol0 provides 168grams carbs daily. Nutrition Interventions/Goals: TF at goal with propofol= 1530kcals, 50grams protein TF at goal without propofol but with prostat= 1540kcals, 87grams protein Education Documentation No documentation found. Nutrition Monitoring and Evaluation Enteral and Parenteral Nutrition Intake Determination: Enteral nutrition intake - Tolerate TF at goal rate Goal Status: New goal(s) identified Time Spent (min): 60 minutes [1] PRN medications: dextrose, dextrose, fentaNYL, glucagon, glucagon, ipratropium-albuteroL, oxygen documented in this encounter [facility] Work Phone: 04-01-2025 History of Present illness Narrative Images from the original note were not included. Radiation Oncology On Treatment Visit Patient Name: Melissa Dubose : 1960 Referring Provider: No ref. provider found Primary Care Provider: Madison Magana MD Care Team: Patient Care Team: Madison Magana MD as PCP - General (Family Medicine) Date of Service: 04/01/2025 Diagnosis: Specialty Problems Radiation Oncology Problems Non-small cell cancer of right lung (Multi) Treatment Summary: Radiation Therapy Treatment Period Technique Fraction Dose Fractions Total Dose Course 1 04/01/2025-04/01/2025 (days elapsed: 0) Rtlung 04/01/2025-04/01/2025 AP/PA 800 / 800 cGy / 800 / 800 cGy SUBJECTIVE: No new symptoms. Has sore throat from bronchoscopy. Lost her Voice. Otherwise stable. OBJECTIVE: Vital Signs: LMP (LMP Unknown) Other Pertinent Findings: Toxicity Assessment 04/01/2025 08:32 Toxicity Assessment Adverse Events Reviewed (WDL) No (Exceptions to WDL) Treatment Site Thoracic Dermatitis Radiation Grade 0 Diarrhea Grade 0 Fatigue Grade 1 Nausea Grade 0 Vomiting Grade 0 Cough Grade 1 Dyspnea Grade 1 pt. on 6L O2 Hypoxia Grade 0 Assessment / Plan: The patient is tolerating radiation therapy as anticipated. Continue per current treatment plan. Follow-up at [facility]. documented in this encounter [facility] Work Phone: 03-24-2025 History and physical note H&P reviewed. The patient was examined and there are no changes to the H&P. Cosigned by Nabor Sparks MD at 03/24/2025 4:24 PM EDT Source Note - Tara Hernandez MD - 03/22/2025 12:53 PM EDT Medical Intensive Care - History and Physical Subjective Melissa Dubose is a 64 y.o. female patient admitted on 03/22/2025 with following ICU needs: acute hypoxic respiratory failure requiring mechanical ventilation HPI: Ms. 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 She originally presented to [facility] 03/21 for 1 week of progressive shortness of breath. Also noted to have been having R sided chest pain for several months. In the ED, she was hypoxic to the 80s on RA, placed on BiPAP 90-100%, unclear IPAP and EPAP settings. She was originally treated for COPD exacerbation and pneumonia with duonebs x2, 1L NS, percocet, 1x ceftriaxone/azithro, methylpred 125mg, with minimal improvement. CT chest negative for PE, noted to have R hilar mass measuring 5x4.7cm invading into the adjacent mediastinum about the lateral aspect of the trachea narrowing the R mainstem bronchus with the proximal RUL bronchus completely occluded with mild GGOs in the medial RUL and partial atelectasis of the RLL as well. CT head negative for acute findings. Given concern for obstructive mass, case discussed with transfer center, accepted for transfer to [facility] initiated for interventional pulmonology evaluation. Prior to transfer, noted that she immediately desatted to 70% when on 100% FiO2 BiPAP settings. Given concern for worsening distress during transport, decision made to intubate. At the bedside today, patient is intubated and sedated but responds to commands. Her parents stated that they didn't know much about her medical history but that she has a heart surgery coming up. They did not know what kind of surgery or the date. There is no family history of cancer. Father is anemic. ED Initial Vitals and Labs: - Vitals: T 97.9, HR 89, BP 112/77, RR 26, SpO2 82 on RA - Labs: CBC: WBC 12.6, Hgb 15.8, plt 311 BMP: Na 145, K 4.1, Cl 107, HCO3 23.7, BUN 18.0, Cr 1.18 (no baseline), glu 187 LFT: Ca 10.0, tprot 7.0, alb 3.1, alkphos 89, AST 8, ALT 15, tbili 0.5 Mg 1.6 Lactate 2.6 Trop 8 / ABG 7.38/35.6/45.3 on 40% FiO2 Review of Systems: Review of Systems 10 point review of systems was performed and is otherwise negative except as noted in HPI. Meds Home medications: Current Outpatient Medications Medication Instructions apixaban (ELIQUIS) 5 mg, oral, 2 times daily atorvastatin (LIPITOR) 40 mg, oral, Daily empagliflozin (Jardiance) 10 mg tablet oral ezetimibe (ZETIA) 10 mg, oral, Daily furosemide (LASIX) 20 mg, oral, Daily isosorbide mononitrate ER (IMDUR) 60 mg, oral, Daily, Do not crush or chew. metoprolol tartrate (LOPRESSOR) 25 mg, oral, 2 times daily pantoprazole (PROTONIX) 40 mg, oral, Daily before breakfast, Do not crush, chew, or split. sacubitriL-valsartan (Entresto) 49-51 mg tablet 1 tablet, oral, 2 times daily Inpatient medications: Scheduled medications Scheduled Medications[1] Continuous medications Continuous Medications[2] PRN medications PRN Medications[3] Objective Blood pressure 129/68, pulse 82, temperature 35.7 C (96.2 F), resp. rate 15, height 1.778 m (5' 10 ), SpO2 95%. Physical Exam Constitutional: Comments: Intubated and sedated HENT: Mouth/Throat: Mouth: Mucous membranes are moist. Eyes: Extraocular Movements: Extraocular movements intact. Pupils: Pupils are equal, round, and reactive to light. Cardiovascular: Rate and Rhythm: Normal rate and regular rhythm. Pulmonary: Comments: Mechanically ventilated, decreased breath sounds at the right lower lobe Abdominal: General: Abdomen is flat. There is no distension. Palpations: Abdomen is soft. Skin: General: Skin is warm and dry. Neurological: Comments: Sedated but follows commands Intake/Output Summary (Last 24 hours) at 03/22/2025 1335 Last data filed at 03/22/2025 1200 Gross per 24 hour Intake 1369.93 ml Output 880 ml Net 489.93 ml Net IO Since Admission: 489.93 mL [03/22/25 1335] Labs: Results from last 72 hours Lab Units 03/22/25 0625 SODIUM mmol/L 136 POTASSIUM mmol/L 4.1 CHLORIDE mmol/L 104 CO2 mmol/L 20* BUN mg/dL 19 CREATININE mg/dL 0.77 GLUCOSE mg/dL 235* CALCIUM mg/dL 8.9 ANION GAP mmol/L 16 EGFR mL/min/1.73m*2 87 PHOSPHORUS mg/dL 4.3 Results from last 72 hours Lab Units 03/22/25 0625 WBC AUTO x10*3/uL 15.7* HEMOGLOBIN g/dL 13.7 HEMATOCRIT % 44.2 PLATELETS AUTO x10*3/uL 222 NEUTROS PCT AUTO % 93.0 LYMPHS PCT AUTO % 4.7 MONOS PCT AUTO % 1.3 EOS PCT AUTO % 0.0 Micro/ID: Lab Results Component Value Date BLOODCULT Loaded on Instrument - Culture in progress 03/22/2025 Summary of Back Imaging Results XR chest 1 view Result Date: 03/22/2025 1. ?Loculated air collection over the inferolateral margins of the right hemithorax. 2. Medical devices as above. MACRO: None Signed by: Lu Betancur 03/22/2025 9:28 AM Dictation workstation: [id number] XR abdomen 1 view Result Date: 03/22/2025 1. Enteric tube with the side port at the level of the GE junction projection MACRO: None Signed by: Lu Betancur 03/22/2025 8:41 AM Dictation workstation: [id number] Assessment and Plan Assessment: Melissa Dubose is a 64 y.o. 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 Mechanical Ventilation: < 4 days Sedation/Analgesia: Propofol Restraints: Restraints indicated as alternative therapies have been attempted and have been ineffective. Restrain with soft wrist restraints and side rails up x4 until medical devices discontinued and/or patient able to participate with plan of care. Plan: NEUROLOGY/PSYCH: #Intubated, sedated Was intubated and sedated on ketamine during transport. Ketamine since been discontinued. ETT and OG placement confirmed on imaging. - On prop and and fentanyl CARDIOVASCULAR: #HFimpEF #HTN #CAD s/p CABG 2016 :: 11/2024 TTE EF 50-55% :: Home meds: ezetimibe 10, atorvastatin 40, metoprolol succ 100 QD, entresto 97-103mg, amlodipine 10mg, canagliflozin 100mg, aldactone 25 - continue ezetimibe 10 and atorvastatin 40 - Start metoprolol tartrate 12.5 mg BID for the time being as SBP have been around 120s. - holding lasix, amlodipine, canagliflozin, aldactone, and entresto 97-103mg BID given possible CLARY #pAfib :: s/p cardioversion 01/2024 :: CHADs-VASC 5 :: home eliquis 5mg BID - metoprolol tartrate 12.5 BID - hold eliquis pending procedure PULMONARY: #Acute hypoxic respiratory failure :: s/p ceftriaxone/azithro (03/21) :: CT chest with 5x4.7cm R hilar mass invading into the adjacent mediastinum causing compression of the R mainstem bronchus and proximal RUL bronchus ::Likely 2/2 to compression from extensive R hilar mass although pneumonia is a possibility - AC/VC RR 14/TV 400/FiO2 70%/PEEP 10 - Will touch base regarding possible intervention with IP, NPO for possible IP intervention. Holding eliquis - Bcx x2, sputum cx - Unasyn (03/22-*) for anaerobic/aspiration coverage, continue azithro (03/21-*) - Urine strep/legionella for rule-out - TTE with bubble study to rule out shunt as cause of hypoxia - duonebs q4h PRN RENAL/GENITOURINARY: #?CLARY :: Admission Cr 1.18, no baseline in system - Repeat RFP for baseline admission - UA/Ucx GASTROENTEROLOGY: #GERD - continue PPI - miralax daily ENDOCRINOLOGY: #T2DM :: Home canagliflozin 100mg, metformin 500 BID, januvia 100 mg daily - holding home meds - A1C for baseline - SSI #1, POC glucose q4h HEMATOLOGY: #R hilar mass - Picture concerning for malignancy as above - Will discuss with IP regarding timing of biopsy - For staging, will likely need CT CAP w/ contrast MUSCULOSKELETAL/ SKIN: - Holding home tizanidine INFECTIOUS DISEASE: #Rule-out pneumonia - Sputum cx, Bcx x2 - continue unasyn and azithromycin pending cultures ICU Check List FEN Fluids: [PRN] Electrolytes: [PRN] Nutrition: Enteral feeding with NPO Isosource 1.5; 10 cc/hr; 50; Saline; Every 6 hours Prophylaxis: DVT ppx: [held for eliquis washout] GI ppx: [PPI daily] Bowel care: [Miralax] Hardware: Catheter: [none] Access: [PIV] Drains: [none] Lines: [PIV] Social: Code: Full Code NOK: Primary Emergency Contact: Ben Funez (father) [phone] - listed in chart, but daughter is involved per transfer call Disposition: KENDRA Hernandez MD 03/22/25 at 1:35 PM Disclaimer: Documentation completed with the information available at the time of input. The times in the chart may not be reflective of actual patient care times, interventions, or procedures. Documentation occurs after the physical care of the patient. [1] ampicillin-sulbactam, 3 g, intravenous, q6h atorvastatin, 40 mg, oral, Daily azithromycin, 500 mg, intravenous, q24h pantoprazole, 40 mg, oral, Daily before breakfast Or esomeprazole, 40 mg, nasoduodenal tube, Daily before breakfast Or pantoprazole, 40 mg, intravenous, Daily before breakfast ezetimibe, 10 mg, oral, Daily [Held by provider] furosemide, 20 mg, oral, Daily insulin lispro, 0-5 Units, subcutaneous, q4h [Held by provider] isosorbide mononitrate ER, 60 mg, oral, Daily metoprolol tartrate, 12.5 mg, oral, BID perflutren lipid microspheres, 0.5-10 mL of dilution, intravenous, Once in imaging perflutren protein A microsphere, 0.5 mL, intravenous, Once in imaging polyethylene glycol, 17 g, oral, Daily [Held by provider] sacubitriL-valsartan, 1 tablet, oral, BID sulfur hexafluoride microsphr, 2 mL, intravenous, Once in imaging [2] fentaNYL, 0-300 mcg/hr, Last Rate: 75 mcg/hr (03/22/25 1257) ketamine, 0-2 mg/kg/hr, Last Rate: Stopped (03/22/25 0720) propofol, 5-50 mcg/kg/min, Last Rate: 20 mcg/kg/min (03/22/25 1123) [3] PRN medications: dextrose, dextrose, fentaNYL, glucagon, glucagon, ipratropium-albuteroL, oxygen Cosigned by Azul Gonzalez MD at 03/23/2025 11:46 AM EDT Medical Intensive Care - History and Physical Subjective Melissa Dubose is a 64 y.o. female patient admitted on 03/22/2025 with following ICU needs: acute hypoxic respiratory failure requiring mechanical ventilation HPI: Ms. 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 She originally presented to [facility] 03/21 for 1 week of progressive shortness of breath. Also noted to have been having R sided chest pain for several months. In the ED, she was hypoxic to the 80s on RA, placed on BiPAP 90-100%, unclear IPAP and EPAP settings. She was originally treated for COPD exacerbation and pneumonia with duonebs x2, 1L NS, percocet, 1x ceftriaxone/azithro, methylpred 125mg, with minimal improvement. CT chest negative for PE, noted to have R hilar mass measuring 5x4.7cm invading into the adjacent mediastinum about the lateral aspect of the trachea narrowing the R mainstem bronchus with the proximal RUL bronchus completely occluded with mild GGOs in the medial RUL and partial atelectasis of the RLL as well. CT head negative for acute findings. Given concern for obstructive mass, case discussed with transfer center, accepted for transfer to [facility] initiated for interventional pulmonology evaluation. Prior to transfer, noted that she immediately desatted to 70% when on 100% FiO2 BiPAP settings. Given concern for worsening distress during transport, decision made to intubate. At the bedside today, patient is intubated and sedated but responds to commands. Her parents stated that they didn't know much about her medical history but that she has a heart surgery coming up. They did not know what kind of surgery or the date. There is no family history of cancer. Father is anemic. ED Initial Vitals and Labs: - Vitals: T 97.9, HR 89, BP 112/77, RR 26, SpO2 82 on RA - Labs: CBC: WBC 12.6, Hgb 15.8, plt 311 BMP: Na 145, K 4.1, Cl 107, HCO3 23.7, BUN 18.0, Cr 1.18 (no baseline), glu 187 LFT: Ca 10.0, tprot 7.0, alb 3.1, alkphos 89, AST 8, ALT 15, tbili 0.5 Mg 1.6 Lactate 2.6 Trop 8 7/13 ABG 7.38/35.6/45.3 on 40% FiO2 Review of Systems: Review of Systems 10 point review of systems was performed and is otherwise negative except as noted in HPI. Meds Home medications: Current Outpatient Medications Medication Instructions apixaban (ELIQUIS) 5 mg, oral, 2 times daily atorvastatin (LIPITOR) 40 mg, oral, Daily empagliflozin (Jardiance) 10 mg tablet oral ezetimibe (ZETIA) 10 mg, oral, Daily furosemide (LASIX) 20 mg, oral, Daily isosorbide mononitrate ER (IMDUR) 60 mg, oral, Daily, Do not crush or chew. metoprolol tartrate (LOPRESSOR) 25 mg, oral, 2 times daily pantoprazole (PROTONIX) 40 mg, oral, Daily before breakfast, Do not crush, chew, or split. sacubitriL-valsartan (Entresto) 49-51 mg tablet 1 tablet, oral, 2 times daily Inpatient medications: Scheduled medications Scheduled Medications[1] Continuous medications Continuous Medications[2] PRN medications PRN Medications[3] Objective Blood pressure 129/68, pulse 82, temperature 35.7 C (96.2 F), resp. rate 15, height 1.778 m (5' 10 ), SpO2 95%. Physical Exam Constitutional: Comments: Intubated and sedated HENT: Mouth/Throat: Mouth: Mucous membranes are moist. Eyes: Extraocular Movements: Extraocular movements intact. Pupils: Pupils are equal, round, and reactive to light. Cardiovascular: Rate and Rhythm: Normal rate and regular rhythm. Pulmonary: Comments: Mechanically ventilated, decreased breath sounds at the right lower lobe Abdominal: General: Abdomen is flat. There is no distension. Palpations: Abdomen is soft. Skin: General: Skin is warm and dry. Neurological: Comments: Sedated but follows commands Intake/Output Summary (Last 24 hours) at 03/22/2025 1335 Last data filed at 03/22/2025 1200 Gross per 24 hour Intake 1369.93 ml Output 880 ml Net 489.93 ml Net IO Since Admission: 489.93 mL [03/22/25 1335] Labs: Results from last 72 hours Lab Units 03/22/25 0625 SODIUM mmol/L 136 POTASSIUM mmol/L 4.1 CHLORIDE mmol/L 104 CO2 mmol/L 20* BUN mg/dL 19 CREATININE mg/dL 0.77 GLUCOSE mg/dL 235* CALCIUM mg/dL 8.9 ANION GAP mmol/L 16 EGFR mL/min/1.73m*2 87 PHOSPHORUS mg/dL 4.3 Results from last 72 hours Lab Units 03/22/25 0625 WBC AUTO x10*3/uL 15.7* HEMOGLOBIN g/dL 13.7 HEMATOCRIT % 44.2 PLATELETS AUTO x10*3/uL 222 NEUTROS PCT AUTO % 93.0 LYMPHS PCT AUTO % 4.7 MONOS PCT AUTO % 1.3 EOS PCT AUTO % 0.0 Micro/ID: Lab Results Component Value Date BLOODCULT Loaded on Instrument - Culture in progress 03/22/2025 Summary of Back Imaging Results XR chest 1 view Result Date: 03/22/2025 1. ?Loculated air collection over the inferolateral margins of the right hemithorax. 2. Medical devices as above. MACRO: None Signed by: Lu Betancur 03/22/2025 9:28 AM Dictation workstation: [id number] XR abdomen 1 view Result Date: 03/22/2025 1. Enteric tube with the side port at the level of the GE junction projection MACRO: None Signed by: Lu Betancur 03/22/2025 8:41 AM Dictation workstation: [id number] Assessment and Plan Assessment: Melissa Dubose is a 64 y.o. 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 Mechanical Ventilation: < 4 days Sedation/Analgesia: Propofol Restraints: Restraints indicated as alternative therapies have been attempted and have been ineffective. Restrain with soft wrist restraints and side rails up x4 until medical devices discontinued and/or patient able to participate with plan of care. Plan: NEUROLOGY/PSYCH: #Intubated, sedated Was intubated and sedated on ketamine during transport. Ketamine since been discontinued. ETT and OG placement confirmed on imaging. - On prop and and fentanyl CARDIOVASCULAR: #HFimpEF #HTN #CAD s/p CABG 2016 :: 11/2024 TTE EF 50-55% :: Home meds: ezetimibe 10, atorvastatin 40, metoprolol succ 100 QD, entresto 97-103mg, amlodipine 10mg, canagliflozin 100mg, aldactone 25 - continue ezetimibe 10 and atorvastatin 40 - Start metoprolol tartrate 12.5 mg BID for the time being as SBP have been around 120s. - holding lasix, amlodipine, canagliflozin, aldactone, and entresto 97-103mg BID given possible CLARY #pAfib :: s/p cardioversion 01/2024 :: CHADs-VASC 5 :: home eliquis 5mg BID - metoprolol tartrate 12.5 BID - hold eliquis pending procedure PULMONARY: #Acute hypoxic respiratory failure :: s/p ceftriaxone/azithro (03/21) :: CT chest with 5x4.7cm R hilar mass invading into the adjacent mediastinum causing compression of the R mainstem bronchus and proximal RUL bronchus ::Likely 2/2 to compression from extensive R hilar mass although pneumonia is a possibility - AC/VC RR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 Dr: Winter Norris [...] Patient had bypass surgery in 2013 at [facility], routinely follows with Dr. Parks. She presents [...] in LV function specifically evaluate graft and igiugig and coronary anatomy for treatable targets. Review of Systems Review of Systems All other systems reviewed & are negative unless noted below or in HPI Constitutional Constitutional: Reports as per HPI, Reports fatigue and Reports weakness Cardiovascular Cardiovascular: Reports chest pain at rest, Reports dyspnea and Reports orthopnea Respiratory Respiratory: Reports as per HPI [facility] Medical History Myocardial infarction Hypertension Diabetes Surgical History History of back surgery Hx of CABG 3 vessel at [facility] Family History Mother Diabetes Paternal Grandfather [...] Lymph # (Auto) 0.6 L (1.00-4.8) x10E3/uL [place] # (Auto) 0.6 (0.0-0.8) x10E3/uL Eos # [...] bypass graft (4) Coronary artery disease involving igiugig coronary artery of igiugig heart without angina pectoris: Code(s): I25.10 - Atherosclerotic heart disease of igiugig coronary artery without angina pectoris (5) Myocardial injury: Code(s): I5A - Non-ischemic myocardial injury (non-traumatic) Plan Proceed with left heart catheterization plus minus revascularization Documented By: Hernan Siddiqi DO 11/22/23 1417 Signed By: <Electronically signed by Hernan Siddiqi DO> 11/22/23 1425 [facility] Work Phone: 1([phone]) 580-409203-15-2024 [facility] Progress note Author Winter Norris [facility] November 22, 2023 10:05am Note Date/Time November 22, 2023 10: 01am [facility] [address] [place] [address] Hospitalist Progress Note Signed Patient: Melissa Dubose MR#: [id number] : 1960 Acct:[id number] Age/Sex: 63 / F Adm Date: 4 Loc: 4 Room: [address] [place] [address] Type: ADM IN Attending Dr: Winter Norris [...] <Electronically signed by Winter Norris MD> 11/22/23 1003 [facility] Work Phone: 1([phone]) 619-847203-14-2024 Consult note Author Justine Jacobo [facility] November 21, 2023 4:39pm Note Date/Time November 21, 2023 3:0 2pm [facility] [address] [place] [address] Cardiology Consult Note Signed Patient: Melissa Dubose MR#: [id number] : 1960 Acct:[id number] Age/Sex: 63 / F Adm Date: 4 Loc: Room: [address] [place] [address] Type: ADM IN Attending Dr: Winter Norris MD Copies to: MD Justine West MD Mazhar Rahman, MD~ Cardiology HPI History of Present Illness Consult Date: 11/21/23 HPI: Ms. Dubose is a 63 year old female with the PMH below ike presented to the [place] ER for chest pain, SOB, cough and [...] easy bleeding, ecchymosis. Skin: Denies rashes, pruritus. [facility] Medical History Myocardial infarction Hypertension Diabetes Surgical History History of back surgery Hx of CABG 3 vessel at [facility] Family History Mother Diabetes Paternal Grandfather [...] Lymph # (Auto) 0.3 L (1.00-4.8) x10E3/uL [place] # (Auto) 0.1 (0.0-0.8) x10E3/uL Eos # [...] bypass graft (4) Coronary artery disease involving igiugig coronary artery of igiugig heart without angina pectoris: Code(s): I25.10 - Atherosclerotic heart disease of igiugig coronary artery without angina pectoris (5) Myocardial [...] <Electronically signed by Justine Jacobo MD> 11/21/23 4148 [facility] Work Phone: 1(450) 585-144603-14-2024 Progress note Author Winter Norris [facility] November 21, 2023 12:12pm Note Date/Time November 21, 2023 12: 09pm [facility] [address] [place], [place] [id number] Event Note Signed Patient: Melissa Dubose MR#: [id number] : 1960 Acct:[id number] Age/Sex: 63 / F Adm Date: 4 Loc: 4 Room: [address] [place] [address] Type: ADM IN Attending Dr: Winter Norris [...] signed by Winter Norris MD> 11/21/23 1212 [facility] Work Phone: 1([phone]) 873-695703-14-2024 History and physical note Author Isaac Greenwood [facility] November 21, 2023 5:31am Note Date/Time November 21, 2023 3:0 1am [facility] [address] [place], [place] [address] Hospitalist H&P Signed Patient: Melissa Dubose MR#: [id number] : 1960 Acct:[id number] Age/Sex: 63 / F Adm Date: 4 Loc: 4P Room: [address] [place] [address] Type: ADM IN Attending Dr: Isaac Greenwood DO Copies to: MD Karen West APRN Shawn J Warner, ~ HPI DATE OF EXAMINATION: 11/21/23 CHIEF COMPLAINT: [...] 125 Solu-Medrol, Zofran Tamiflu. She follows with [facility] cardiology however they had no beds available. She agreed to transfer to the closest facility which is [facility]. Patient was transferred here to the progressive floor under the care of hospitalist team. Review of Systems Review of Systems Review of systems: A 10 point review of systems was obtained, negative unless noted in the HPI or below. [facility] Medical History (Updated 11/21/23 @ 03:40 by Karen Mays APRN) Myocardial infarction Hypertension Diabetes Surgical History (Updated 11/21/23 @ 03:31 by Karen Mays APRN) History of back surgery Hx of CABG 3 vessel at [facility] Family History (Updated 11/21/23 @ 03:31 [...] signed by Isaac Greenwood DO> 11/21/23 0531 [facility] Work Phone: Evaluation + Plan note No data available for this section [facility] evaluation + Plan note Future Appointments Appointment Date:09/24/2024 01:45:00 PM Scheduled Provider: Location:[facility] Appointment Type:Surgery FT [facility] Evaluation note* Diagnosis Onset Date Resolution Status Acute hypoxic respiratory failure acute Atrial fibrillation acute Chest pain acute [id number] acute Diabetes acute Headache acute HFrEF (heart failure with reduced ejection fraction) acute Hypertension acute Influenza A acute Myocardial injury acute NSTEMI (non-ST elevated myocardial infarction) acute S/P CABG (coronary artery bypass graft) acute Shortness of breath acute [facility] Work Phone: Evaluation note* Diagnosis Malignant neoplasm of upper lobe, right bronchus or lung documented in this encounter [facility] Work Phone: Evaluation note* Diagnosis Malignant neoplasm of upper lobe, right bronchus or lung- Primary Malignant neoplasm of upper lobe, right bronchus or lung documented in this encounter [facility] Work Phone: Evaluation note* Diagnosis Encounter for antineoplastic radiation therapy Malignant neoplasm of right main bronchus (Multi) documented in this encounter [facility] Work Phone: Evaluation note* Diagnosis Acute hypoxic respiratory failure- Primary Acute hypoxic respiratory failure Non-small cell cancer of right lung (Multi) Dry skin Other symptoms involving skin and integumentary tissues Cancer associated pain Neoplasm related pain (acute) (chronic) Nausea Nausea alone Other constipation Rectal pain Anal or rectal pain Coronary artery disease involving other coronary artery bypass graft, unspecified whether angina present Non-small cell cancer of right lung (Multi) documented in this encounter [facility] Work Phone: Evaluation note* Diagnosis Hypotension, unspecified hypotension type- Primary Chronic heart failure, unspecified heart failure type (CMS-HCC) Primary hypertension Unspecified essential hypertension Chronic obstructive pulmonary disease, unspecified COPD type (CMS-HCC) Malignant neoplasm of unspecified part of right bronchus or lung (CMS-HCC) [facility] Diagnosis Malignant neoplasm of unspecified part of right bronchus or lung (CMS-HCC)- Primary Nausea and vomiting, unspecified vomiting type Chronic obstructive pulmonary disease, unspecified COPD type (CMS-HCC) Muscle weakness (generalized) Unsteadiness on feet Gastrointestinal hemorrhage, unspecified gastrointestinal hemorrhage type Atrial fibrillation, unspecified type (CMS-HCC) [facility] Diagnosis Acute respiratory failure with hypoxia (CMS-HCC)- Primary Malignant neoplasm of unspecified part of right bronchus or lung (CMS-HCC) Chronic obstructive pulmonary disease, unspecified COPD type (CMS-HCC) Diabetic polyneuropathy associated with type 2 diabetes mellitus (CMS-HCC) Muscle weakness (generalized) Chronic heart failure, unspecified heart failure type (CMS-HCC) Primary hypertension Unspecified essential hypertension Atrial fibrillation, unspecified type ([facility]) Unsteadiness on feet Atherosclerosis of [place] coronary artery of [place] heart without angina pectoris Noninfectious gastroenteritis, unspecified type Pneumothorax, unspecified type Cigarette nicotine dependence with nicotine-induced disorder Gastroesophageal reflux disease without esophagitis Esophageal reflux Ischemic cardiomyopathy Other specified forms of chronic ischemic heart disease [facility] Diagnosis Malignant neoplasm of unspecified part of right bronchus or lung ([facility])- Primary Chronic obstructive pulmonary disease, unspecified COPD type ([facility]) Acute respiratory failure with hypoxia ([facility]) Chronic heart failure, unspecified heart failure type ([facility]) Muscle weakness (generalized) Other fatigue Unsteadiness on feet Diabetic polyneuropathy associated with type 2 diabetes mellitus ([facility]) Nausea and vomiting, unspecified vomiting type documented [facility] this [facility] No data available for this section [facility] InstructionsNot on filedocumented in this encounter [facility] filedocumented in this [facility] filedocumented in this encounter [facility] filedocumented in this encounter [facility] No data available for this section [facility] reason for visit Narrative* Auth/Cert Specialty Diagnoses / Procedures Referred By Contac t Referred To Contact Diagnoses Hilar Lung Mass [place] [address] [place] [address] Phone: tel: fax: [facility] [address] [facility] [place] [address] Referral ID Status Reason Start Date Expiration Date Visits Re quested Visits Authorized [id number] 1 1 [facility] Work Phone: Summary Purpose Family History No Family History Records Found Relationship Condition Age at Onset Recorded Date/T carroll Not Specified Diabetes mellitus Unknown Not Specified Malignant neoplasm of pancreas Unknown daughter Diabetes mellitus Unknown Advance Directives No Advanced Directives Records Found Advance Directive Response Recorded Date/ Time Advance Directives No November 20, 2 024 1:29am Date Activated Date Inactivated Comments 03/22/2025 5:41 AM Question Answer Comments Plan of Care: Code Status Discussion Not Compl eted Decision Maker: Provider Rationale: Patient lacks capaci ty/Care Team unable to identify or reach proxy Date Activated Date Inactivated Comments 03/22/2025 5:41 AM Question Answer Comments Plan of Care: Code Status Discussion Not Compl eted Decision Maker: Provider Rationale: Patient lacks capaci ty/Care Team unable to identify or reach proxy Chief Complaint and Reason for Visit Chief Complaint New onset Afib, NSte mi New onset Afib, NStemi New onset Afib, NStemi Reason for Visit Acute hypoxic respir atory failure Atrial fibrillation Chest pain [id number] Diabetes Headache HFrEF (heart failure with reduced ejection fraction) Hypertension Influenza A Myocardial injury NSTEMI (non-ST elevated myocardial infarction) S/P CABG (coronary artery bypass graft) Shortness of breath Additional Source Comments INFORMATION SOURCE (unrecogn ized section and content) DATE CREATED AUTHOR 03/05/2018 [facility] DATE CREATED AUTHOR AUTHOR'S ORGANIZ ATION 01/24/2023 [facility] DATE CREATED AUTHOR AUTHOR'S ORGANIZ ATION 06/04/2024 [facility] DATE CREATED AUTHOR AUTHOR'S ORGANIZ ATION 08/25/2024 [facility] DATE CREATED AUTHOR AUTHOR'S ORGANIZ ATION 09/22/2024 [facility] DATE CREATED AUTHOR AUTHOR'S ORGANIZ ATION 09/27/2024 [facility] DATE CREATED AUTHOR AUTHOR'S ORGANIZ ATION 09/29/2024 [facility] DATE CREATED AUTHOR AUTHOR'S ORGANIZ ATION 10/01/2024 [facility] DATE CREATED AUTHOR AUTHOR'S ORGANIZ ATION 02/13/2025 [facility] DATE CREATED AUTHOR AUTHOR'S ORGANIZ ATION 03/31/2025 [facility] DATE CREATED AUTHOR AUTHOR'S ORGANIZ ATION 04/12/2025 [facility] DATE CREATED AUTHOR AUTHOR'S ORGANIZ ATION 04/22/2025 [facility] Care Teams (unrecognized sec tion [...] Zach Jones MD Other Provider Active Start: 2023 Justine Jacobo MD Attending Provider, Other Provider Active Start: November 21, 2023 Jayne Vallecillo MD Other Provider Active Start: November 21, 2023 Cat Driver Relationship Specialty Start Date End Date Madison Magana MD [address] [place] [id number] PCP - General Family Medicine 11/21/23 Cat Driver Relationship Specialty Start Date End Date Madison Magana MD [address] [place] [id number] PCP - General Family Medicine 11/21/23 Cat Driver Relationship Specialty Start Date End Date Madison Magana MD [address] [place] [address] [place] [address] PCP - General Family Medicine 11/21/23 Cat Driver Relationship Specialty Start Date End Date Madison Magana MD [address] [facility] [place] [address] PCP - General Family Medicine 11/21/23 Reason for Visit (unrecogniz ed section and content) Reason Comments OTV inpatient Scheduled Active and Recently Administ ered Medications (unrecognized section and content) Medication Order 04/05/2025 04/06/2025 04/07/2025 albuterol 2.5 mg /3 mL (0.083 %) nebulizer solution 2.5 mg 2.5 mg, nebulization, 3 times daily RT, First dose (after last modification) on Sat03/30/25 at 0900 1009 (Given - Provider: Patricia Aragon VICE PRESIDENT OF ACADEM[employer] AFFAIRS)1537 (Given - Provider: Patricia Aragon VICE PRESIDENT [employer])2030 (Given - Provider: Ryan Farmer RN) 0951 (Given - Provider: Linda Francis, CHARLES)1459 (Given - Provider: Patricia Aragon VICE [employer]IDENT [employer] AFFA[employer])2127 (Not Given - Provider: Vanessa Davies, PROCESS LABORATORY SPECIALIST - Reason: Patient/family refused - Comment: pt asleep) 0916 (Given - Provider: Geovanna Faulkner, PROCESS LABORATORY SPECIALIST)1500 (Due)2100 (Due) apixaban (Eliquis) tablet 5 mg 5 mg, oral, 2 times daily, First dose on Sat03/25/25 at 0900 0827 (Given - Provider: Marichuy Quan RN)2030 (Given - Provider: Ryan Farmer RN) 0906 (Given - Provider: Linda Francis, CHARLES)2034 (Given - Provider: Ilene Clark RN) 0855 (Given - Provider: Jaimee Garcia RN)2100 (Due) atorvastatin (Lipitor) tablet 40 mg 40 mg, oral, Daily, First dose on Sat03/22/25 at 0900 0826 (Given - Provider: Marichuy Quan RN) 0906 (Given - Provider: Linda Francis RN) 0856 (Given - Provider: Jaimee Garcia, CHARLES) ezetimibe (Zetia) tablet 10 mg 10 mg, oral, Daily, First dose on Sat03/22/25 at 0900 0826 (Given - Provider: Marichuy Quan RN) 0950 (Given - Provider: Linda Francis RN) 0856 (Given - Provider: Jaimee Garcia RN) insulin lispro injection 0-5 Units 0-5 Units, subcutaneous, 3 times daily before meals, First dose (after last modification) on Sat03/31/25 at 1600, Insulin Lispro Corrective Scale #1 Hypoglycemia protocol Call LIP unit(s) if Blood Glucose is between 0 - 70 mg/dL 0 unit(s) if Blood glucose is between 71-150 1 unit(s) if Blood glucose is between 151-200 2 unit(s) if Blood glucose is between 201-250 3 unit(s) if Blood glucose is between 251-300 4 unit(s) if Blood glucose is between 301-350 5 unit(s) if Blood glucose is between 351-400 If blood glucose is greater than 400 mg/dL, give max insulin per sliding scale AND then contact provider. 0827 (Given - Provider: Marichuy Quan RN)1339 (Given - Provider: Marichuy Quan RN)1820 (Given - Provider: Marichuy Quan RN) 0907 (Given - Provider: Linda Francis RN)1445 (Not Given - Provider: Linda Francis RN - Reason: Other)1918 (Given - Provider: Linda Francis RN) 1002 (Given - Provider: Jaimee Garcia RN - Comment: waiteed for tray)1100 (Due)1600 (Due) metoprolol tartrate (Lopressor) tablet 25 mg 25 mg, oral, 2 times daily, First dose on Sat03/28/25 at 1015 0826 (Given - Provider: Mairchuy Quan RN)2030 (Given - Provider: Ryan Farmer RN) 0906 (Given - Provider: Linda Francis RN)2034 (Given - Provider: Ilene Clark RN) 0855 (Given - Provider: Jaimee Garcia, CHARLES)2100 (Due) pantoprazole (ProtoNix) EC tablet 40 mg(Linked Group 1) 40 mg, oral, Daily before breakfast, First dose on Sat03/22/25 at 0700, Use pantoprazole tablet if patient can take meds orally. Do not crush, chew, or split. 0730 (Given - Provider: Ryan Farmer RN) 0730 (Given - Provider: Ryan Farmer RN) 0616 (Given - Provider: Ilene Clark RN) polyethylene glycol (Glycolax, Miralax) packet 17 g 17 g, oral, 2 times daily, First dose (after last modification) on Sat04/06/25 at 1000, Bowel Regimen - for prevention of constipation. 1133 (Given - Provider: Linda Francis RN)2033 (Not Given - Provider: Ilene Clark RN - Reason: Patient/family refused) 09 (Not Given - Provider: Jaimee Garcia RN - Reason: Patient/family refused)2100 (Due) sacubitriL-valsartan (Entresto) 97-103 mg per tablet 1 tablet 1 tablet, oral, 2 times daily, First dose on Sat03/29/25 at 2100, Contraindicated in combination with SCOUT inhibitors. Ensure a minimum of 36 hours between any SCOUT inhibitor dose and sacubitril-valsartan. 0826 (Given - Provider: Marichuy Quan RN)2029 (Given - Provider: Ryan Farmer RN) 0951 (Given - Provider: Linda Francis RN)220 (Given - Provider: Ilene Clark, CHARLES) 0856 (Given - Provider: Jaimee Garcia, CHARLES)2100 (Due) sennosides-docusate sodium (Aide-Colace) 8.6-50 mg per tablet 1 tablet 1 tablet, oral, 2 times daily, First dose on Sat04/06/25 at 1000 1132 (Given - Provider: Linda Francis RN)2033 (Given - Provider: Ilene Clark RN) 0855 (Given - Provider: Jaimee Garcia RN)2099 (Due) sodium chloride 3 % nebulizer solution 3 mL 3 mL, nebulization, 3 times daily RT, First dose (after last modification) on Sat03/30/25 at 0900 1009 (Given - Provider: Patricia Aragon, VICE PRESIDENT OF ACADEMIC AFFAIRS)1537 (Given - Provider: Patricia Aragon VICE PRESIDENT OF ACADEMIC AFFAIRS)2040 (Not Given - Provider: Ryan Farmer RN - Reason: Medication not available) 1103 (Not Given - Provider: Patricia Aragon VICE PRESIDENT OF ACADEMIC AFFAIRS - Reason: Patient not available)1459 (Given - Provider: Patricia Aragon VICE PRESIDENT OF ACADEMIC AFFAIRS)2127 (Not Given - Provider: Vanessa Davies, BETH - Reason: Patient/family refused - Comment: pt asleep) 0916 (Given - Provider: Geovanna Faulkner, PROCESS LABORATORY SPECIALIST)1500 (Due)2100 (Due) spironolactone (Aldactone) tablet 12.5 mg 12.5 mg, oral, Daily, First dose on Sat03/29/25 at 1315 0826 (Given - Provider: Marichuy Quan RN) 0906 (Given - Provider: Linda Francis, CHARLES) 0902 (Given - Provider: Jaimee Garcia, CHARLES) tiZANidine (Zanaflex) tablet 4 mg 4 mg, oral, Nightly, First dose (after last modification) on Sat03/30/25 at 2100 2030 (Given - Provider: Ryan Farmer RN) 203 (Given - Provider: Ilene Clark, CHARLES) 2100 (Due) PRN Medication Order 04/05/2025 04/06/2025 04/07/2025 acetaminophen (Tylenol) tablet 975 mg 975 mg, oral, Every 8 hours PRN, pain mild (1-3), first line, Starting on Sat03/30/25 at 1259, If ordered PRN for pain, nurse is permitted to administer this medication for higher pain scores based on patient preference? Yes 1533 (Given - Provider: Marichuy Quan RN) 0904 (Given - Provider: Linda Francis, CHARLES) benzocaine-menthol (Cepastat Sore Throat) lozenge 1 lozenge 1 lozenge, Mouth/Throat, Every 4 hours PRN, sore throat, Starting on Sat03/31/25 at 0858 dextrose 50 % injection 12.5 g 12.5 g, intravenous, Every 15 min PRN, For blood glucose 41 to 70 mg/dL, Starting on Sat03/22/25 at 0557, May repeat until blood glucose level reaches 100 mg/dL or greater. Push 2 - 3 mL/minute if patient has secure IV access. dextrose 50 % injection 25 g 25 g, intravenous, Every 15 min PRN, For blood glucose less than or equal to 40 mg/dL, Starting on Sat03/22/25 at 0557, May repeat until blood glucose level reaches 100 mg/dL or greater. Push 2 - 3 mL/minute if patient has secure IV access. eucerin cream Topical, As needed, dry skin, Starting on Sat03/30/25 at 0933, Apply to: arms glucagon (Glucagen) injection 1 mg 1 mg, intramuscular, Every 15 min PRN, blood glucose less than or equal to 40 mg/dL - see comments, For blood glucose less than or equal to 40 mg/dL and no IV access, Starting on Sat03/22/25 at 0557, Give until blood glucose is 100 mg/dL or greater. If patient DOES NOT HAVE secure IV access & patient is unconscious, NPO or is unable to eat or drink. glucagon (Glucagen) injection 1 mg 1 mg, intramuscular, Every 15 min PRN, blood glucose 41 to 70 mg/dL - see comments, For blood glucose 41 to 70 mg/dL and no IV access, Starting on Sat03/22/25 at 0557, Give until blood glucose is 100 mg/dL or greater. If patient DOES NOT HAVE secure IV access & patient is unconscious, NPO or is unable to eat or drink. ipratropium-albuteroL (Duo-Neb) 0.5-2.5 mg/3 mL nebulizer solution 3 mL 3 mL, nebulization, Every 4 hours PRN, wheezing, Starting on Sat03/22/25 at 0907 ondansetron (Zofran) injection 4 mg(Linked Group 2) 4 mg, intravenous, Every 6 hours PRN, nausea/vomiting, second line, Starting on Sat03/30/25 at 1302, Give IV if patient is unable to take orally. When administering via IV Push, administer over 3-5 minutes. 0859 (Given - Provider: Linda Francis RN) ondansetron (Zofran) tablet 4 mg(Linked Group 2) 4 mg, oral, Every 6 hours PRN, nausea/vomiting, second line, Starting on Sat03/30/25 at 1302 0859 (See Alternative - Provider: Linda Francis RN) oxyCODONE (Roxicodone) immediate release tablet 5 mg 5 mg, oral, Every 4 hours PRN, pain moderate (4-6), first line, pain severe (7-10), first line, Starting on Sat04/02/25 at 2103, If ordered PRN for pain, nurse is permitted to administer this medication for higher pain scores based on patient preference? Yes 0827 (Given - Provider: Marichuy Quan RN)1341 (Given - Provider: Marichuy Quan RN)1820 (Given - Provider: Marichuy Quan RN)2250 (Given - Provider: Ryan Farmer RN) 0730 (Given - Provider: Ryan Farmer RN)1225 (Given - Provider: Linda Francis RN)2034 (Given - Provider: Ilene Clark, CHARLES) 0856 (Given - Provider: Jaimee Garcia, CHARLES) oxygen (O2) therapy inhalation, Continuous - O2/gases, other, Starting on Sat03/29/25 at 2010, Device: High Flow Nasal Cannula (HFNC), [facility] TYPE: Bubbler/LPM Flow only, Rate in liters per minute: Other, Custom Value: 5lpm, Keep O2 Sat Above: 92% 0845 (Rate [employer] - Provider: Linda Francis RN) phenyleph-min oil-petrolatum (Preparation H) 0.25-14-74.9 % rectal ointment rectal, 4 times daily PRN, hemorrhoids, Starting on Sat03/28/25 at 2002 prochlorperazine (Compazine) injection 10 mg(Linked Group 3) 10 mg, intravenous, Every 6 hours PRN, nausea/vomiting, first line, Starting on Sat03/30/25 at 1301, Give IV if patient is unable to take orally. prochlorperazine (Compazine) tablet 10 mg(Linked Group 3) 10 mg, oral, Every 6 hours PRN, nausea/vomiting, first line, Starting on Sat03/30/25 at 1301 Linked Groups Order Group 1: pantoprazole (ProtoNix) EC tablet 40 mgJump to med 40 mg, oral, Daily before breakfast, First dose on Sat03/22/25 at 0700, Use pantoprazole tablet if patient can take meds orally. Do not crush, chew, or split. Or esomeprazole (NexIUM) suspension 40 mg (CANCELED) 40 mg, nasoduodenal tube, Daily before breakfast, First dose on Sat03/22/25 at 0700, Use esomeprazole suspension if patient cannot take meds orally but has feeding tube. Add 15 mL water to catheter-tipped syringe, add granules from packet. Shake and let thicken. Administer through NG tube within 30 minutes. Refill with 15 mL of water, shake and flush NG tube. Or pantoprazole (Protonix) injection 40 mg (CANCELED) 40 mg, intravenous, Daily before breakfast, First dose on Sat03/22/25 at 0700, Use pantoprazole injection if patient unable to take meds orally or per feeding tube. Reconstitute each 40 mg vial with 10 mL NS to make 4 mg/mL solution. Group 2: ondansetron (Zofran) tablet 4 mgJump to med 4 mg, oral, Every 6 hours PRN, nausea/vomiting, second line, Starting on Sat03/30/25 at 1302 Or ondansetron (Zofran) injection 4 mgJump to med 4 mg, intravenous, Every 6 hours PRN, nausea/vomiting, second line, Starting on Sat03/30/25 at 1302, Give IV if patient is unable to take orally. When administering via IV Push, administer over 3-5 minutes. Group 3: prochlorperazine (Compazine) tablet 10 mgJump to med 10 mg, oral, Every 6 hours PRN, nausea/vomiting, first line, Starting on Sat03/30/25 at 1301 Or prochlorperazine (Compazine) injection 10 mgJump to med 10 mg, intravenous, Every 6 hours PRN, nausea/vomiting, first line, Starting on Sat03/30/25 at 1301, Give IV if patient is unable to take orally. FOR RECORDS PERTAINING TO PATIENTS WHO ARE [...] BE BASED ON THE PRIMARY CLINICAL RECORDS. [employer] [facility]. provides no warranty or guarantee of the accuracy or completeness of information in this document.
--- OUTSIDE RECORDS SUMMARY | 2025-04-28 21:45 | XMS_ITS | Encounter Summary ---
Author Organization [facility] Address [address] [place] [address] Care Team Providers Care Improvement Advisor Name Role Phone Alejandro Mccormack MD Primary Care Provider [phone] Reason for Visit * Reason Comments Med Refill Encounter Details Date Type Department Care Team (Late st Contact Info) Description 08/16/2023 Refill [facility] Cardiology [address] [place] [id number] Kandi Melendez CNP [address] [place] [address] Chest pain, unspecified type Social History Tobacco Use Types Packs/Day Years Used Date Smoking Tobacco: Former Cigarettes Smokeless Tobacco: Never Alcohol Use Standard Drinks/Week Comments Not Currently 0 (1 standard drink = 0.6 oz pur e alcohol) Comments Unknown Sex and Gender Information Value Date Recorded Sex Assigned at Female 04/04/2023 6:13 PM EDT Legal Sex Female 10:22 PM EDT Gender Identity Female 04/04/2023 6:13 PM EDT Sexual Orientation Heterosexual or Straight 03/10 6:13 PM EDT documented as of this encounter Plan of Treatment Upcoming Encounters Date Type Department Care Team (Late st Contact Info) Description 06/18/2025 Hospital Encounter [facility] Vascular Lab [address] [place] [address] Ab Chapin MD [address] [place] [address] Scheduled Procedures Name Priority Associated Diagnoses Date/Ti me Atrial Fib Ablation w/ PVI PAF (paroxysmal atrial fibrillation) (CMS/HCC) documented as of this encounter Visit Diagnoses Diagnosis Chest pain, unspecified type documented in this encounter Care Teams Improvement Advisor Relationship Specialty Start Date End Date Alejandro Mccormack [facility] [address] [facility] [place] [id number] PCP - General 04/03/23 documented as of this encounter
--- OUTSIDE RECORDS SUMMARY | 2025-04-28 21:45 | XMS_ITS | Encounter Summary ---
Author Organization [employer] s tem Address [facility] [place]-[id number] [address] [place] [address] Care Team Providers Care International Representative Name Role Phone Unavailable Primary Care Provider Unavailabl e Encounter Details Date Type Department Care Team (Late st Contact Info) Description 04/07/2025 Continuing Care [facility] - Family Medicine [address] [place] [id number] Chet Longo, DO [address] [facility], [place] [address] Acute respiratory failure with hypoxia (CMS-HCC) (Primary Dx); Malignant neoplasm of unspecified part of right bronchus or lung (CMS-HCC); Chronic obstructive pulmonary disease, unspecified COPD type (CMS-HCC); Diabetic polyneuropathy associated with type 2 diabetes mellitus (CMS-HCC); Muscle weakness (generalized); Chronic heart failure, unspecified heart failure type (CMS-HCC); Primary hypertension; Atrial fibrillation, unspecified type (CMS-HCC); Unsteadiness on feet; Atherosclerosis of [place] coronary artery of [place] heart without angina pectoris; Noninfectious gastroenteritis, unspecified type; Pneumothorax, unspecified type; Cigarette nicotine dependence with nicotine-induced disorder; Gastroesophageal reflux disease without esophagitis; Ischemic cardiomyopathy Social History Tobacco Use Types Packs/Day Years Used Date Smoking Tobacco: Never Assessed Childcare Answer Date Recorded Childcare Unknown 02/18/2019 Employment Answer Date Recorded Employment Unknown 02/18/2019 Purpose - Life Answer Date Recorded Purpose and direction in life Unknown Comments Unknown Sex and Gender Information Value Date Recorded Sex Assigned at Not on file Legal Sex Female 12:04 PM EDT Gender Identity Not on file Sexual Orientation Not on file documented as of this encounter Progress Notes * Chet Longo, DO - 04/07/2025 11:59 PM EDT Patient Name: Melissa Dubose Date of : 1960 Date of Service: 04/21/2025 Facility: [facility] Type of Visit: Admission H&P Subjective Melissa Dubose is a 64 y.o. female [facility] for [facility]&P . Clara presents to [facility] for therapies following admission to [facility] for shortness of breath. She was found to be in respiratory failure due to pneumonia and a new lung mass which was found to be malignant. It was obstructing a bronchus so she was transferred to in [place]. She doesn't recall much of the events [...] past medical history, past social history, past surgicalhistory, problem list, and medication reconciliation was completed including current medication andpost discharge medication. Review of Systems Constitutional: Positive [...] Plan 1. Acute respiratory failure with hypoxia (CMS-HCC) 2. Malignant neoplasm of unspecified part of right bronchus or lung (CMS-HCC) 3. Chronic obstructive pulmonary disease, unspecified COPD type (CMS-HCC) 4. Diabetic polyneuropathy associated with type 2 diabetes mellitus (CMS-HCC) 5. Muscle weakness (generalized) 6. Chronic heart failure, unspecified heart failure type (CMS-HCC) 7. Primary hypertension 8. Atrial fibrillation, unspecified type (CMS-HCC) 9. Unsteadiness on feet 10. Atherosclerosis of [place] coronary artery of [place] heart without angina pectoris 11. Noninfectious gastroenteritis, unspecified type 12. Pneumothorax, unspecified type 13. Cigarette nicotine dependence with nicotine-induced disorder 14. Gastroesophageal reflux disease without esophagitis 15. Ischemic cardiomyopathy Admit to [facility] for therapies. She is planning to go home when she is physically able to. Continue medications from the hospital. Full code. F/U with oncology as directed. Fair to good rehab potential. ELECTRONICALLY SIGNED BY: Chet Longo DO documented in this encounter Plan of Treatment Not on file documented as of this encounter Visit Diagnoses Diagnosis Acute respiratory failure with hypoxia (CMS-HCC)- Primary Malignant neoplasm of unspecified part of right bronchus or lung (CMS-HCC) Chronic obstructive pulmonary disease, unspecified COPD type (CMS-HCC) Diabetic polyneuropathy associated with type 2 diabetes mellitus ([facility]) Muscle weakness (generalized) Chronic heart failure, unspecified heart failure type ([facility]) Primary hypertension Unspecified essential hypertension Atrial fibrillation, unspecified type ([facility]) Unsteadiness on feet Atherosclerosis of [place] coronary artery of [place] heart without angina pectoris Noninfectious gastroenteritis, unspecified type Pneumothorax, unspecified type Cigarette nicotine dependence with nicotine-induced disorder Gastroesophageal reflux disease without esophagitis Esophageal reflux Ischemic cardiomyopathy Other specified forms of chronic ischemic heart disease documented in this encounter
--- OUTSIDE RECORDS SUMMARY | 2025-04-28 21:45 | XMS_ITS | Encounter Summary ---
Author Organization [employer] s tem Address [facility][id number] [address] [place] [address] Care Team Providers Care Autos Disassembler Name Role Phone Unavailable Primary Care Provider Unavailabl e Encounter Details Date Type Department Care Team (Late st Contact Info) Description 04/16/2025 Continuing Care [facility] - Family Medicine [address] [place] [address] Chet Longo, DO [address] [facility], [place] [address] Hypotension, unspecified hypotension type (Primary Dx); Chronic heart failure, unspecified heart failure type (CMS-HCC); Primary hypertension; Chronic obstructive pulmonary disease, unspecified COPD type (CMS-HCC); Malignant neoplasm of unspecified part of right bronchus or lung ([facility]) Social History Tobacco Use Types Packs/Day Years [...] on file documented as of this encounter Last Filed Vital Signs Vital Sign Reading Time Taken Comments Blood Pressure 80/46 04/16/2025 3:33 PM EDT Pulse 76 04/16/2025 3:33 PM EDT Temperature 36.4 C (97.6 F) 04/16/2025 3:33 PM EDT Respiratory Rate 16 04/16/2025 3:33 PM EDT Oxygen Saturation 97% 04/16/2025 3:33 PM EDT Inhaled Oxygen Concentration - - Weight 101.6 kg (224 lb) 04/16/2025 3:33 PM EDT Height - - Body Mass Index 32.14 07/03/2016 10:00 AM EDT documented in this encounter Progress Notes * Chet Longo, DO - 04/16/2025 3:33 PM EDT Patient Name: Melissa Dubose Date of : 1960 Date of Service: 04/16/2025 Facility: [facility] [place] [facility] Type of Visit: Skilled Visit Subjective Melissa Dubose is a 64 y.o. female seen today at intermediate facility for problem visit. Staff reports low blood pressures recently. She had recent blood pressure a being 80/46. She does feel lightheaded when she stands up. She has not passed out. . Lost lb she was admitted. She didn't eat lunch today. She is drinking ok. Allergies: Oxycodone-acetaminophen Code Status: FULL CODE BP (!) 80/46 Pulse 76 Temp 36.4 ??C (97.6 ??F) Resp 16 Wt 101.6 kg (224 lb) SpO2 97% BMI 32.14 kg/m?? Physical Exam Vitals reviewed. Exam conducted with a transactional attorney present (Honorio Marsh MS3). Cardiovascular: Rate and [...] going to cut back on metoprolol 25mg BIDto 12.5mg BID. Continue therapy to reach maximum improvement. Continue other orders as dir. ELECTRONICALLY SIGNED BY: Chet Longo DO documented in this encounter Plan of Treatment Not on file documented as of this encounter Visit Diagnoses Diagnosis Hypotension, unspecified hypotension type- Primary Chronic heart failure, unspecified heart failure type (CMS-HCC) Primary hypertension Unspecified essential hypertension Chronic obstructive pulmonary disease, unspecified COPD type (CMS-HCC) Malignant neoplasm of unspecified part of right bronchus or lung (CMS-HCC) documented in this encounter
--- OUTSIDE RECORDS SUMMARY | 2025-04-28 21:45 | XMS_ITS | Encounter Summary ---
Author Organization [email or web address] s tem Address [facility] [place][id number] [address] [place] [address] Care Team Providers Care Filter Assembler Name Role Phone Unavailable Primary Care Provider Unavailabl e Encounter Details Date Type Department Care Team (Late st Contact Info) Description 04/13/2025 Continuing Care [facility] - Family Medicine [address] [place] [address] Chet Longo, DO [address] [facility] [place] [address] Malignant neoplasm of unspecified part of right bronchus or lung (CMS-HCC) (Primary Dx); Nausea and vomiting, unspecified vomiting type; Chronic obstructive pulmonary disease, unspecified COPD type (CMS-HCC); Muscle weakness (generalized); Unsteadiness on feet; Gastrointestinal hemorrhage, unspecified gastrointestinal hemorrhage type; Atrial fibrillation, unspecified type (CMS-HCC) Social History Tobacco Use Types Packs/Day Years [...] Sign Reading Time Taken Comments Blood Pressure 90/60 04/13/2025 10:08 AM EDT Pulse 92 04/13/2025 10:08 AM EDT Temperature 36.3 C (97.3 F) 04/13/2025 10:08 AM EDT Respiratory Rate 16 04/13/2025 10:0 8 AM EDT Oxygen Saturation 98% 04/13/2025 10: 08 AM EDT Inhaled Oxygen Concentration - - Weight 105.2 kg (231 lb 14.4 oz) 2024 10:08 AM EDT Height - - Body Mass Index 33.27 07/03/2016 10:00 AM EDT documented in this encounter Progress Notes * Chet Longo, DO - 04/13/2025 11:59 PM EDT Patient Name: Melissa Dubose Date of : 1960 Date of Service: 04/13/2025 Facility: [facility] [place] Type of Visit: Skilled Visit Subjective Melissa Dubose is a 64 y.o. female seen today at nursing home facility for skilled visit. Melissa has been [...] CODE BP 90/60 Pulse 92 Temp 36.3 ??C (97.3 ??F) Resp 16 Wt 105.2 kg (231 lb 14.4 oz) SpO2 98% BMI 33.27 kg/m?? Physical Exam Vitals reviewed. Exam conducted with a prime minister present (Honorio Marsh MS3). Constitutional: General: She [...] as of this encounter Visit Diagnoses Diagnosis Malignant neoplasm of unspecified part of right bronchus or lung (CMS-HCC)- Primary Nausea and vomiting, unspecified vomiting type Chronic obstructive pulmonary disease, unspecified COPD type (CMS-HCC) Muscle weakness (generalized) Unsteadiness on feet Gastrointestinal hemorrhage, unspecified gastrointestinal hemorrhage type Atrial fibrillation, unspecified type (CMS-HCC) documented in this encounter
--- OUTSIDE RECORDS SUMMARY | 2025-04-28 21:46 | XMS_ITS | Encounter Summary ---
Author Organization [facility] Address [address] [address] Care Team Providers Care Director Private Name Role Phone Alejandro Mccormack MD Primary Care Provider [phone] Reason for Visit * Reason Comments Med Refill Encounter Details Date Type Department Care Team (Late st Contact Info) Description 03/28/2023 Refill [facility] [address] [place] [id number] Kandi Melendez CNP [address] [place] [address] Gastroesophageal reflux disease with esophagitis, unspecified whether hemorrhage Social History Tobacco Use Types Packs/Day Years Used Date Smoking Tobacco: Never Assessed Comments Unknown Sex and Gender Information Value Date Recorded Sex Assigned at Female 04/04/2023 6:13 PM EDT Legal Sex Female 10:22 PM EDT Gender Identity Female 04/04/2023 6:13 PM EDT Sexual Orientation Heterosexual or Straight 03/10 6:13 PM EDT documented as of this encounter Plan of Treatment Upcoming Encounters Date Type Department Care Team (Late st Contact Info) Description 06/18/2025 Hospital Encounter [facility] Vascular Lab [address] [place] [address] Ab Chapin MD [address] [place] [address] Scheduled Procedures Name Priority Associated Diagnoses Date/Ti me Atrial Fib Ablation w/ PVI PAF (paroxysmal atrial fibrillation) (CMS/HCC) documented as of this encounter Visit Diagnoses Diagnosis Gastroesophageal reflux disease with esophagitis, unspecified whether hemorrhage documented in this encounter Care Teams Director Private Relationship Specialty Start Date End Date Alejandro Mccormack MD [facility] [place] [phone] PCP - General 04/03/23 documented as of this encounter
--- OUTSIDE RECORDS SUMMARY | 2025-04-28 21:46 | XMS_ITS | Encounter Summary ---
Author Organization [employer] s tem Address [id number] [address] [place] [address] Care Team Providers Care Concrete Inspector Name Role Phone Unavailable Primary Care Provider Unavailabl e Encounter Details Date Type Department Care Team (Late st Contact Info) Description 04/21/2025 Continuing Care [facility] - Family Medicine [address] [place] [address] Chet Longo, DO [address] [facility] [address] [place] [address] Malignant neoplasm of unspecified part of right bronchus or lung (CMS-HCC) (Primary Dx); Chronic obstructive pulmonary disease, unspecified COPD type (CMS-HCC); Acute respiratory failure with hypoxia (CMS-HCC); Chronic heart failure, unspecified heart failure type (CMS-HCC); Muscle weakness (generalized); Other fatigue; Unsteadiness on feet; Diabetic polyneuropathy associated with type 2 diabetes mellitus (CMS-HCC); Nausea and vomiting, unspecified vomiting type Social History Tobacco Use Types Packs/Day [...] Sign Reading Time Taken Comments Blood Pressure 99/62 04/22/2025 12:27 PM EDT Pulse 108 04/22/2025 12:27 PM EDT Temperature 36.4 C (97.6 F) 04/22/2025 12:27 PM EDT Respiratory Rate 18 04/22/2025 12:2 7 PM EDT Oxygen Saturation 94% 04/22/2025 12: 27 PM EDT Inhaled Oxygen Concentration - - Weight 100.5 kg (221 lb 9.6 oz) 025 12:27 PM EDT Height - - Body Mass Index 31.8 07/03/2016 10:00 AM EDT documented in this encounter Progress Notes * Chet Sainz Donta, DO - 04/21/2025 11:59 PM EDT Patient Name: Melissa Dubose Date of : 1960 Date of Service: 04/21/2025 [facility] [facility] Type of Visit: Skilled Visit Subjective Melissa Dubose is a 64 y.o. female [facility]. Clara is still [...] so she can get into and out ofher home more easily. She has pain but medication does help when she uses it.She is concerned abouther heart medications. She has thrown up a couple times after taking her medications in his worriedthat she is missing doses. Allergies: Oxycodone-acetaminophen Code Status: FULL CODE BP 99/62 Pulse 108 Temp 36.4 ??C (97.6 ??F) Resp 18 Wt 100.5 kg (221 lb 9.6 oz) SpO2 94% BMI 31.80 kg/m?? Physical Exam Vitals reviewed. Constitutional: General: She [...] unspecified part of right bronchus or lung ([facility]) 2. Chronic obstructive pulmonary disease, unspecified COPD type ([facility]) 3. Acute respiratory failure with hypoxia ([facility]) 4. Chronic heart failure, unspecified heart failure type ([facility]) 5. Muscle weakness (generalized) 6. Other fatigue 7. Unsteadiness on feet 8. Diabetic polyneuropathy associated with type 2 diabetes mellitus ([facility]) 9. Nausea and vomiting, unspecified vomiting type Continue with physical therapy to reach maximum improvement. Melissa will be discharging to home next week. She [facility] in a very weakened conditionfollowing prolonged hospitalization due to a newly diagnosed malignant neoplasm of the right lung. She also had acute respiratory failure and was on a ventilator for several days. She has COPD and congestive heart failure and complicating conditions. These conditions cause limited mobility that requ ired the use of a wheelchair to improve [...] members for ambulation requiring distance in the community.She is oxygen dependent and would benefit from [...] and her blood pressure was already running onthe low normal side. She should be able [...] unspecified part of right bronchus or lung ([facility])- Primary Chronic obstructive pulmonary disease, unspecified COPD type (CMS-HCC) Acute respiratory failure with hypoxia (CMS-HCC) Chronic heart failure, unspecified heart failure type (CMS-HCC) Muscle weakness (generalized) Other fatigue Unsteadiness on feet Diabetic polyneuropathy associated with type 2 diabetes mellitus (CMS-HCC) Nausea and vomiting, unspecified vomiting type documented in this encounter
--- OUTSIDE RECORDS SUMMARY | 2025-04-28 21:46 | XMS_ITS | Patient Health Record ---
Author Organization [facility] in [place] Address [address] [place] [address] Care Team Providers Care Airplane Engineer Name Role Phone Raul Mccormack Primary Care Provider Allergies No Known Allergies Results Component Value Reference Range Notes COVID-19, Flu A+B IH Reviewed date:03/21/2025 03:52:45 PM Interpretation: Performing Lab: Notes/Report: COVID - FLU A - FLU B - Control + LIPID PROFILE Reviewed date:05/03/2024 09:47:40 PM Interpretation: Performing Lab: Notes/Report: [facility] , Triglycerides 155 <=150 mg/dL Cholesterol 150 <=200 mg/dL HDL Cholesterol 46 40-60 mg/dL > or =60 mg/dl - LOW CARDIOVASCULAR RISK <40 mg/dl - HIGH CARDIOVASCULAR RISK LDL Cholesterol Calculated 73.0 <100 mg/dl OPTIMAL 100-129 mg/dl NEAR OR ABOVE OPTIMAL 130-159 mg/dl BORDERLINE HIGH 160-189 mg/dl HIGH >190 mg/dl VERY HIGH VLDL CHOLESTEROL 31.0 Chol HDL Ratio 3.3 3.3 - 4.4 LOW RISK 4.4 - 7.1 AVERAGE RISK 7.1 - 11.0 MODERATE RISK >11.0 HIGH RISK Performing Lab: see note ML - [facility] LB SGOT Reviewed date:05/03/2024 09:47:40 PM Interpretation: Performing Lab: Notes/Report: [facility] , Aspartate Amino Transferase 17 15-37 U/L Performing Lab: see note ML - [facility] LB SGPT Reviewed date:05/03/2024 09:47:40 PM Interpretation: Performing Lab: Notes/Report: [facility] , Alanine Aminotransferase 20 14-59 U/L Performing Lab: see note ML - [facility] LB PROF CHEM 8 (BAS METB) Reviewed date:07/29/2024 08:33:17 PM Interpretation: Performing Lab: Notes/Report: [facility] , Sodium 132 136-145 mmol/L Potassium 4.9 3.5-5.1 mmol/L Chloride 97 98-107 mmol/L Carbon Dioxide 25.9 21.0-32.0 mmol/L Anion Gap 14.0 Glucose 640 74-106 mg/dL RESULTS CALLED TO SELVIN HELLER AT [facility] BY Amira Horner at 1423 Blood Urea Nitrogen 18.0 7.0-18.0 mg/dL Creatinine 1.38 0.55-1.02 mg/dL Estimated GFR ( Kacie 47 >=60 mL/min/1.73m 2 Estimated GFR (Non- Mary Ann 39 >=60 mL/min/1.73m 2 BUN Creatinine Ratio 13.0 Calcium 10.0 8.5-10.1 mg/dL Performing Lab: see note ML - [facility] LB CBC AUTO DIFF Reviewed date:09/05/2024 08:39:49 PM Interpretation: Performing Lab: Notes/Report: [facility] , White Blood Count 8.9 4.0-11.0 10 3/uL Red Blood Count 4.87 4.20-5.40 10 6/uL Hemoglobin 14.9 12.0-16.0 g/dL Hematocrit 46.7 36.0-48.0 % Mean Corpuscular Volume 95.9 81.0-99.0 fL Mean Corpuscular Hemoglobin 30.6 26.7-34.0 pg Mean Corpuscular HGB Conc 31.9 29.9-35.2 g/dL Red Cell Distribution Width 13.4 11.0-15.0 % Platelet Count 238 150-450 10 3/uL Mean Platelet Volume 9.3 9.5-13.5 fL Neutrophils Percent Auto 68.8 43.0-75.0 % Lymphocytes Percent Auto 21.9 20.5-60.0 % Monocytes Percent Auto 7.5 1.7-12.0 % Eosinophils Percent Auto 1.0 0.9-7.0 % Basophils Percent Auto 0.6 0.2-2.0 % Immature Granulocytes Pct Auto 0.2 0.0-0.5 % Neutrophils Absolute Auto 6.1 1.4-6.5 10 3/uL Lymphocytes Absolute Auto 2.0 1.2-3.8 10 3/uL Monocytes Absolute Auto 0.7 0.3-0.8 10 3/uL Eosinophils Absolute Auto 0.1 0.0-0.7 10 3/uL Basophils Absolute Auto 0.1 0.0-0.1 10 3/uL Immature Granulocytes Abs Auto 0.02 0.00-0.03 10 3/uL Performing Lab: see note - [facility] PROF CHEM 8 (BAS METB) Reviewed date:09/05/2024 08:39:49 PM Interpretation: Performing Lab: Notes/Report: [facility] , Sodium 140 136-145 mmol/L Potassium 4.0 3.5-5.1 mmol/L Chloride 106 98-107 mmol/L Carbon Dioxide 27.2 21.0-32.0 mmol/L Anion Gap 10.8 Glucose 202 74-106 mg/dL Blood Urea Nitrogen 17.0 7.0-18.0 mg/dL Creatinine 1.07 0.55-1.02 mg/dL Estimated GFR ( Kacie >60 >=60 mL/min/1.73m 2 Estimated GFR (Non- Mary Ann 52 >=60 mL/min/1.73m 2 BUN Creatinine Ratio 15.9 Calcium 9.6 8.5-10.1 mg/dL Performing Lab: see note - [facility] CA echo w/ con Reviewed date:11/11/2024 09:19:30 PM Interpretation: Performing Lab: Notes/Report: Source Facility: [facility]-[address] [place] [address] [place] [address] Cardiology Report Signed Patient: MELISSA DUBOSE MR#: [id number] : 1960 Acct:[id number] Age/Sex: 64 / F ADM Date: 11/11/24 Loc: CARD Attending Dr: JUSTINE GRIMES Ordering Physician: JUSTINE GRIMES Date of Service: 11/11/24 Procedure(s): CA echo w/ con Accession Number(s): [id number] cc: Alejandro Mccormack M.D.; JUSTINE GRIMES Patient Name: MELISSA DUBOSE MR#: [id number] : 1960 Exam Date: 11/11/2024 Ordering Doctor: DR JUSTINE GRIMES M.D. ECHOCARDIOGRAM REPORT PROCEDURE: CA ECHO W/ CON INDICATIONS: Chronic systolic congestive heart failure, CABG COMPARISON: None. DESCRIPTION: COMPLETE ECHOCARDIOGRAM Real-time transthoracic echocardiography with 2D, M-mode, spectral and color flow Doppler performed. QUALITY: Lumason contrast was administered due to suboptimal imaging for left ventricular opacification to improve delineation of endocardial boarders. LEFT VENTRICLE: Normal chamber size. Mild concentric left ventricular hypertrophy. Systolic function is at the lower limits of normal. Calculated left ventricular ejection fraction is 53% LV EF: Lower limits of normal left ventricular ejection fraction, (50-55%). DIASTOLIC: ATRIAL SEPTUM: Visually appears intact. LEFT ATRIUM: Normal chamber size. RIGHT ATRIUM: Normal chamber size. RIGHT VENTRICLE: Normal chamber size. Normal systolic function. TRICUSPID VALVE: Normal mobility and thickness. No stenosis with trivial regurgitation. Doppler studies reveal mildly (35-45) elevated right sided pressures. RVSP 35 mmHg MITRAL VALVE: Mildly thickened with normal mobility. No evidence of mitral valve stenosis. There is no mitral annular calcification. No mitral regurgitation. AORTIC VALVE: Normal trileaflet appearance. No visible sclerosis. Normal leaflet mobility. No evidence of aortic valve stenosis. No aortic regurgitation. AORTIC ROOT: Normal diameter and appearance. PULMONIC VALVE: Normal thickness and mobility. No stenosis. No regurgitation. PERICARDIUM: No evidence of pericardial effusion. IVC: Collapses with inspirations. PLEURA: CONCLUSION: 1. Mild concentric left ventricular hypertrophy with low normal systolic function. LVEF is estimated at 50 to 55%. Calculated LVEF is 53%. 2. Normal right ventricular size and systolic function. 3. No significant valvular dysfunction. 4. Mildly elevated right-sided pressures. Adult Echocardiography Procedure Report Left Ventricle LVEDD (3.7 - 5.6 cm): 5.09 cm LVESD (2.2 - 4.0 cm): 3.06 cm LVIVS thickness (0.6 - 1.2 cm): 1.13 cm LVPW thickness (0.5 - 1.0 cm): 1.18 cm e': 0.10 m/s LVOT Max Gradient: 1.54 mm[Hg] LVOT Area (cm2): 0.62 m/s Peak Velocity (LVOT): 0.62 m/s LVOT Diameter 2.26 cm Left Ventricular Ejection Fraction: 53 % Left Atrium LA Volume Index (2D A2C): 34.93 ml/m2 Left Atrium Systolic Dimension: 3.96 cm Mitral Valve Mitral Valve E-Wave Peak Velocity: 0.45 m/s Right Ventricle Aorta AO Root Diam: 3.26 cm Aortic Valve AoV Area (Peak Liam): 2.58 cm2, 2.58 cm2 Peak Velocity(Antegrade Flow): 0.96 m/s Peak Gradient(Antegrade Flow): 3.72 mm[Hg] Tricuspid Valve Peak Velocity (Regurgitant Flow): 2.82 m/s Pulmonic Valve Peak Gradient: 3.46 mm[Hg], 2.52 mm[Hg] Right Atrium Right Atrium Systolic Pressure: 34.73 ml, 34.73 ml Dictated by: Justine Grimes M.D. on 11/11/2024 at 17:54 Approved by: Justine Grimes M.D. on 11/11/2024 at 18:01 Dictated By: JUSTINE GRIMES Signed By: 11/11/241801 DD/ 00 TD/TT: Observatory Director: [place] [address] Cardiology Report Signed Patient: SHELBY DUBOSE MR#: [id number] : 1960 Acct:[id number] Age/Sex: 64 / F ADM Date: 11/11/24 Loc: CARD Attending Dr: JUSTINE GRIMES Ordering Physician: JUSTINE GRIMES Date of Service: 11/11/24 Procedure(s): CA ech o w/ con Accession Number(s): [id number] cc: Alejandro Mccormack M.D. ; JUSTINE GRIMES Patient Name: MELISSA DUBOSE MR#: [id number] : 1960 Exam Date: 11/11/2024 Ordering Doctor: DR JUSTINE GRIMES M.D. ECHOCARDIOGRAM REPORT PROCEDURE: CA ECHO W/ CON INDICATIONS: Chronic systolic congestive heart failure, CABG COMPARISON: None. DESCRIPTION: COMPLET E ECHOCARDIOGRAM Real-time transthoracic echocardiography wit h 2D, M-mode, spectral and color flow Doppler performed. QUALITY: Lumason con trast was administered due to suboptimal imaging for left ventricular opacification to improve delineation of endocardial boarders. LEFT VENTRICLE: Norm al chamber size. Mild concentric left ventricular hypertrophy. Systoli c function is at the lower limits of normal. Calculated left ventricular eje ction fraction is 53% LV EF: Lower limits of normal left ventricular ejection fraction, (50-55%). DIASTOLIC: ATRIAL SEPTUM: Visua lly appears intact. LEFT ATRIUM: Normal chamber size. RIGHT ATRIUM: Normal chamber size. RIGHT VENTRICLE: Nor mal chamber size. Normal systolic function. TRICUSPID VALVE: Nor mal mobility and thickness. No stenosis with trivial regurgitation. Doppl er studies reveal mildly (35-45) elevated right sided pressures. RVSP 35 mmHg MITRAL VALVE: Mildly thickened with normal mobility. No evidence of mitral valve stenosi s. There is no mitral annular calcification. No mitral regurgitation. AORTIC VALVE: Normal trileaflet appearance. No visible sclerosis. Normal leaflet mobility. No evidence of aortic valve stenosis. No aortic regurgitation. AORTIC ROOT: Normal diameter and appearance. PULMONIC VALVE: Norm al thickness and mobility. No stenosis. No regurgitation. PERICARDIUM: No evid ence of pericardial effusion. IVC: Collapses with inspirations. PLEURA: CONCLUSION: 1. Mild concentric l eft ventricular hypertrophy with low normal systolic function. LVEF is estimated at 50 to 55%. Calculated LVEF is 53%. 2. Normal right ventricular size and systolic function. 3. No significant valvular dysfunction. 4. Mildly elevated right-sided pressures. Adult Echocardiograp hy Procedure Report Left Ventricle LVEDD (3.7 - 5.6 cm) : 5.09 cm LVESD (2.2 - 4.0 cm) : 3.06 cm LVIVS thickness (0.6 - 1.2 cm): 1.13 cm LVPW thickness (0.5 - 1.0 cm): 1.18 cm e': 0.10 m/s LVOT Max Gradient: 1 .54 mm[Hg] LVOT Area (cm2): 0.62 m/s Peak Velocity (LVOT) : 0.62 m/s LVOT Diameter 2.26 cm Left Ventricular Eje ction Fraction: 53 % Left Atrium LA Volume Index (2D A2C): 34.93 ml/m2 Left Atrium Systolic Dimension: 3.96 cm Mitral Valve Mitral Valve E-Wave Peak Velocity: 0.45 m/s Right Ventricle Aorta AO Root Diam: 3.26 cm Aortic Valve AoV Area (Peak Liam): 2.58 cm2, 2.58 cm2 Peak Velocity(Antegr darrel Flow): 0.96 m/s Peak Gradient(Antegr darrel Flow): 3.72 mm[Hg] Tricuspid Valve Peak Velocity (Regurgitant Flow): 2.82 m/s Pulmonic Valve Peak Gradient: 3.46 mm[Hg], 2.52 mm[Hg] Right Atrium Right Atrium Systoli c Pressure: 34.73 ml, 34.73 ml Dictated by: Justine Grimes M.D. on 11/11/2024 at 17:54 Approved by: Justine Grimes M.D. on 11/11/2024 at 18:01 Dictated By: JUSTINE GRIMES Signed By: 11/11/241801 DD/ 00 TD/TT: Observatory Director: BLOOD GASES BTY Reviewed date:03/21/2025 05:29:10 PM Interpretation: Performing Lab: Notes/Report: [facility] , pH ABG 7.381 7.350-7.450 ABG PCO2 35.6 35.0-45.0 mmHg PO2 ABG 45.3 80.0-100.0 mmHg RESULTS CALL ED TO SALOMON HANNAH HCO3 ABG 21.1 22.0-26.0 mmol/L Base Excess ABG -4.0 -2.0-2.0 mmol/L Oxygen Saturation ABG 82.6 Gavin Test POSITIVE POSITIVE O2 Mode VAPOTHERM Liters per Minute 40 Fractionated Inspired Oxygen 100 Puncture Site Bhavana GARCIA Performing Lab: see note ML - [facility] LB CBC AUTO DIFF Reviewed date:03/21/2025 03:52:45 PM Interpretation: Performing Lab: Notes/Report: [facility] , White Blood Count 12.6 4.0-11.0 10 3/uL Red Blood Count 5.02 4.20-5.40 10 6/uL Hemoglobin 15.8 12.0-16.0 g/dL Hematocrit 48.8 36.0-48.0 % Mean Corpuscular Volume 97.2 81.0-99.0 fL Mean Corpuscular Hemoglobin 31.5 26.7-34.0 pg Mean Corpuscular HGB Conc 32.4 29.9-35.2 g/dL Red Cell Distribution Width 13.2 11.0-15.0 % Platelet Count 311 150-450 10 3/uL Mean Platelet Volume 9.3 9.5-13.5 fL Neutrophils Percent Auto 74.7 43.0-75.0 % Lymphocytes Percent Auto 15.0 20.5-60.0 % Monocytes Percent Auto 6.7 1.7-12.0 % Eosinophils Percent Auto 2.6 0.9-7.0 % Basophils Percent Auto 0.7 0.2-2.0 % Immature Granulocytes Pct Auto 0.3 0.0-0.5 % Neutrophils Absolute Auto 9.4 1.4-6.5 10 3/uL Lymphocytes Absolute Auto 1.9 1.2-3.8 10 3/uL Monocytes Absolute Auto 0.8 0.3-0.8 10 3/uL Eosinophils Absolute Auto 0.3 0.0-0.7 10 3/uL Basophils Absolute Auto 0.1 0.0-0.1 10 3/uL Immature Granulocytes Abs Auto 0.04 0.00-0.03 10 3/uL Performing Lab: see note ML - [facility] LB D-DIMER Reviewed date:03/21/2025 04:17:40 PM Interpretation: Performing Lab: Notes/Report: [facility] , D Dimer 0.50 <=0.59 mg/L FEU Increases in D-Dimer concentration observed with thromboembolic events can be variable due to localization, size, and age of the thrombus. Therefore, a thromboembolic event cannot be diagnosed with certainty on the basis of the reference range. D-Dimers may also be elevated for a variety of disorders including advanced age, , coronary disease, cancer, liver disease, infection, inflammation, hematoma, DIC, trauma, post-surgery, diabetes, thrombolytic or anticoagulant therapy, stress, and generalized hospitalization. Performing Lab: see note ML - [facility] LB LACTATE or LACTIC ACID Reviewed date:03/21/2025 04:17:40 PM Interpretation: Performing Lab: Notes/Report: [facility] , Lactate/Lactic Acid 2.6 0.4-2.0 mmol/L RESULT S CALLED TO DR. AMANDA Performing Lab: see note ML - [facility] LB MAGNESIUM Reviewed date:03/21/2025 04:11:57 PM Interpretation: Performing Lab: Notes/Report: [facility] , Magnesium 1.6 1.8-2.4 mg/dL Performing Lab: see note - [facility] LB PROF 14(COMP METB) Reviewed date:03/21/2025 04:11:57 PM Interpretation: Performing Lab: Notes/Report: [facility] , Sodium 145 136-145 mmol/L Potassium 4.1 3.5-5.1 mmol/L Chloride 107 98-107 mmol/L Carbon Dioxide 23.7 21.0-32.0 mmol/L Anion Gap 18.4 Glucose 187 74-106 mg/dL Blood Urea Nitrogen 18.0 7.0-18.0 mg/dL Creatinine 1.18 0.55-1.02 mg/dL Estimated GFR ( Kacie 56 >=60 mL/min/1.73m 2 Estimated GFR (Non- Mary Ann 46 >=60 mL/min/1.73m 2 BUN Creatinine Ratio 15.3 Calcium 10.0 8.5-10.1 mg/dL Bilirubin Total 0.5 0.2-1.0 mg/dL Aspartate Amino Transferase 8 15-37 U/L Alanine Aminotransferase 15 14-59 U/L Alkaline Phosphatase 89 46-116 U/L Total Protein 7.0 6.4-8.2 g/dL Albumin Level 3.1 3.4-5.0 g/dL Globulin 3.9 Albumin Globulin Ratio 0.8 Performing Lab: see note - [facility] Prothrombin Time INR Reviewed date:03/21/2025 04:00:00 PM Interpretation: Performing Lab: Notes/Report: [facility] , Prothrombin Time 11.0 9.0-11.6 sec INR 1.04 DESIRED INR: 2.0-3.0 CONDITIONS NOT LISTED BELOW 2.5-3.5 FOR PROSTHETIC HEART VALVE REPLACEMENT 2.5-3.5 RECURRENT THROMBOSIS Performing Lab: see note - [facility] LB Troponin I High Sensitivity Reviewed date:03/21/2025 04:11:57 PM Interpretation: Performing Lab: Notes/Report: [facility] , Troponin I High Sensitivity 8.0 4.0-51.3 pg/mL CUT-OFF POINTS HAVE BEEN ESTABLISHED BASED ON THE FOURTH UNIVERSAL DEFINITION OF MYOCARDIAL INFARCTION. THE UPPER REFERENCE LIMIT (URL) OF TROPONIN, DEFINED THE 99TH PERCENTILE OF cTnI DISTRIBUTION IN A REFERENCE POPULATION, HAS BEEN CONFIRMED THE DECISION THRESHOLD FOR ND DIAGNOSIS. 99TH PERCENTILE = 51.4 PG/ML NOTE: HIGH-SENSITIVITY TROPONIN ASSAY IS NOT INTENDED TO BE USED IN ISOLATION BUT SHOULD BE INTERPRETED IN CONJUNCTION WITH OTHER DIAGNOSTIC AND CLINICAL INFORMATION. Performing Lab: see note ML - [facility] LB ECG 12 lead Reviewed date:03/23/2025 05:15:35 PM Interpretation: Performing Lab: Notes/Report: Source Facility: [facility]-[address] [place] [address] [place] [address] Electrocardiograph Report Signed Patient: MELISSA DUBOSE MR#: [id number] : 1960 Acct:[id number] Age/Sex: 64 / F ADM Date: 03/21/25 Loc: ER Attending Dr: Ordering Physician: Marbella Amanda Date of Service: 03/21/25 Procedure(s): ECG 12 lead Accession Number(s): [id number] cc: [facility] Test Date: 2025-03-21 Pat Name: MELISSA DUBOSE Department: Room: - 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1960 Requested By: 1854 Order Number: [id number] Reading MD: RAFAEL RAJAN Measurements Intervals [place] Rate: 88 P: 73 ME: 166 QRS: 107 QRSD: 126 T: -37 QT: 384 QTc: 429 Interpretive Statements 1100 Sinus rhythm 2450 Right bundle branch block Septal infarct age indeterminate cannot be ruled out 4364 Twave abnormality, possible anterolateral ischemia 4664 Twave abnormality, possible inferior ischemia 7100 Abnormal right axis deviation 9150 abnormal ECG Compared to ECG 12/02/2023 12:14:31 Right bundle-branch block now present Possible ischemia now present Right-axis deviation now present Atrial fibrillation no longer present Electronically Signed On 03-23-2025 16:34:43 EDT by RAFAEL RAJAN Dictated By: Rafael Rajan M.D. 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1960 Requ esteorly By: 1854 Order Number: [id number] Reading MD: RAFAEL RAJAN Measurements Intervals [place] Rate: 88 P: 73 ME: 166 QRS: 107 QRSD: 126 T: -37 QT: 384 QTc: 429 Interpretive Statements 1100 Sinus rhythm 2450 Right bundle br anch block Septal infarct age indeterminate cannot be ruled out 4364 Twave abnormali ty, possible anterolateral ischemia 4664 Twave abnormali ty, possible inferior ischemia 7100 Abnormal right axis deviation 9150 abnormal ECG Compared to ECG 12/02/2023 12:14:31 Right bundle-branch block now present Possible ischemia no w present Right-axis deviation now present Atrial fibrillation no longer present Electronically Alexandra d On 03-23-2025 16:34:43 EDT by RAFAEL RAJAN Dictated By: Rafael Rajan M.D. Signed By: 03/23/25 1634 DD/ 1527 TD/TT: Observatory Director: JUANA chest 1V Reviewed date:03/21/2025 04:17:40 PM Interpretation: Performing Lab: Notes/Report: Source Facility: [place] [address] [place] [address] XRay Report Signed Patient: MELISSA DUBOSE MR#: [id number] : 1960 Acct:[id number] Age/Sex: 64 / F ADM Date: 03/21/25 Loc: ER Attending Dr: Ordering Physician: Marbella Amanda Date of Service: 03/21/25 Procedure(s): XR chest 1V Accession Number(s): [id number] cc: Alejandro Mccormack M.D.; Marbella Amanda [address] [id number] Patient Name: MELISSA DUBOSE MRN: [id number] date: 1960 Sex: F Assigned Patient Location: ED.MAIN Current Patient Location: ED.MAIN Accession/Order Number: [id number] Exam Date: 03/21/2025 16:08 Report Date: 03/21/2025 16:09 At the request of: MARBELLA AMANDA MD Procedure: XR chest 1V XR chest 1V 03/21/2025 4:05 PM SIGNS AND SYMPTOMS: Shortness breath, cough, chest pain PROTOCOL: Frontal radiograph of the chest COMPARISON: 11/20/2023 FINDINGS: The trachea is midline. Atherosclerotic changes are noted in the thoracic aorta. Sternotomy wires overlie the mediastinum. The heart and mediastinal structures are within normal limits. The lung parenchyma is clear. The bony thorax is intact. XR/XR chest 1V IMPRESSION: No acute cardiopulmonary pathology. Impression dictated by: Lowell Oliver M.D. 03/21/2025 4:09 PM Dictation Location: [place] [address] Electronically authenticated by: [id number] Y Date: 03/21/2025 16:09 Dictated By: Lowell Oliver M.D. Signed By: 03/21/25 1611 DD/ 1609 TD/TT: Observatory Director: [place] [address] XRay Report Signed Patient: SHELBY DUBOSE MR#: [id number] : 1960 Acct:[id number] Age/Sex: 64 / F ADM Date: 03/21/25 Loc: ER Attending Dr: Ordering Physician: Marbella Amanda Date of Service: 03/21/25 Procedure(s): XR chest 1V Accession Number(s): [id number] cc: Alejandro Mccormack M.D. ; Marbella Amanda [address], [place] [id number] Patient Name: MELISSA DUBOSE MRN: [id number] date: 1960 Sex: F Assigned Patient Location: ED.MAIN Current Patient Loca tion: ED.MAIN Accession/Order Numb er: [id number] Exam Date: 03/21/2025 16:08 Report Date: 03/21/2025 16:09 At the request of: MARBELLA AMANDA MD Procedure: XR chest 1V XR chest 1V 4:05 PM SIGNS AND SYMPTOMS: Shortness breath, cough, chest pain PROTOCOL: Frontal radiograph of the chest COMPARISON: 11/20/2023 FINDINGS: The trachea is midli ne. Atherosclerotic changes are noted in the thoracic aorta. Sternotomy wi res overlie the mediastinum. The heart and mediastinal structures are withi n normal limits. The lung parenchyma is clear. The bony thorax is intact. X R/XR chest 1V IMPRESSION: No acute cardiopulmo nary pathology. Impression dictated by: Lowell Oliver M.D. 03/21/2025 4:09 PM Dictation Location: [place] [address] Electronically authenticated by: [id number] Y Date: 03/21/2025 16:09 Dictated By: Lowell Oliver M.D. Signed By: 03/21/25 1611 DD/ 1609 TD/TT: Observatory Director: BLOOD GASES BTY Reviewed date:03/22/2025 12:41:53 PM Interpretation: Performing Lab: Notes/Report: [facility] , pH ABG 7.346 7.350-7.450 ABG PCO2 37.7 35.0-45.0 mmHg PO2 ABG 79.8 80.0-100.0 mmHg HCO3 ABG 20.6 22.0-26.0 mmol/L Base Excess ABG -5.1 -2.0-2.0 mmol/L Oxygen Saturation ABG 96.7 Gavin Test POSITIVE POSITIVE O2 Mode BIPAP Fractionated Inspired Oxygen 90 Puncture Site L BRACHIAL BIPAP Pressure 16/12 Performing Lab: see note ML - [facility] LB CBC AUTO DIFF Reviewed date:04/28/2025 05:26:26 PM Interpretation: Performing Lab: Notes/Report: [facility] , White Blood Count 11.2 4.0-11.0 10 3/uL Red Blood Count 4.05 4.20-5.40 10 6/uL Hemoglobin 12.7 12.0-16.0 g/dL Hematocrit 38.6 36.0-48.0 % Mean Corpuscular Volume 95.3 81.0-99.0 fL Mean Corpuscular Hemoglobin 31.4 26.7-34.0 pg Mean Corpuscular HGB Conc 32.9 29.9-35.2 g/dL Red Cell Distribution Width 13.8 11.0-15.0 % Platelet Count 237 150-450 10 3/uL Mean Platelet Volume 9.5 9.5-13.5 fL Neutrophils Percent Auto 78.2 43.0-75.0 % Lymphocytes Percent Auto 8.8 20.5-60.0 % Monocytes Percent Auto 6.5 1.7-12.0 % Eosinophils Percent Auto 5.5 0.9-7.0 % Basophils Percent Auto 0.5 0.2-2.0 % Immature Granulocytes Pct Auto 0.5 0.0-0.5 % Neutrophils Absolute Auto 8.7 1.4-6.5 10 3/uL Lymphocytes Absolute Auto 1.0 1.2-3.8 10 3/uL Monocytes Absolute Auto 0.7 0.3-0.8 10 3/uL Eosinophils Absolute Auto 0.6 0.0-0.7 10 3/uL Basophils Absolute Auto 0.1 0.0-0.1 10 3/uL Immature Granulocytes Abs Auto 0.06 0.00-0.03 10 3/uL Performing Lab: see note ML - [facility] LB MAGNESIUM Reviewed date:04/28/2025 07:14:23 PM Interpretation: Performing Lab: Notes/Report: [facility] , Magnesium 1.3 1.8-2.4 mg/dL Performing Lab: see note - [facility] LB PROF 14(COMP METB) Reviewed date:04/28/2025 07:14:23 PM Interpretation: Performing Lab: Notes/Report: [facility] , Sodium 137 136-145 mmol/L Potassium 4.2 3.5-5.1 mmol/L Chloride 103 98-107 mmol/L Carbon Dioxide 25.7 21.0-32.0 mmol/L Anion Gap 12.5 Glucose 151 74-106 mg/dL Blood Urea Nitrogen 22.0 7.0-18.0 mg/dL Creatinine 1.29 0.55-1.02 mg/dL Estimated GFR ( Kacie 51 >=60 mL/min/1.73m 2 Estimated GFR (Non- Mary Ann 42 >=60 mL/min/1.73m 2 BUN Creatinine Ratio 17.1 Calcium 9.6 8.5-10.1 mg/dL Bilirubin Total 1.3 0.2-1.0 mg/dL Aspartate Amino Transferase 19 15-37 U/L Alanine Aminotransferase 28 14-59 U/L Alkaline Phosphatase 121 46-116 U/L Total Protein 6.5 6.4-8.2 g/dL Albumin Level 2.2 3.4-5.0 g/dL Globulin 4.3 Albumin Globulin Ratio 0.5 Performing Lab: see note ML - [facility] [facility] Time INR Reviewed date:04/28/2025 07:14:23 PM Interpretation: Performing Lab: Notes/Report: [facility] , Prothrombin Time 12.4 9.0-11.6 sec INR 1.19 DESIRED INR: 2.0-3.0 CONDITIONS NOT LISTED BELOW 2.5-3.5 FOR PROSTHETIC HEART VALVE REPLACEMENT 2.5-3.5 RECURRENT THROMBOSIS Performing Lab: see note ML - [facility] LB Troponin I High Sensitivity Reviewed date:04/28/2025 07:14:23 PM Interpretation: Performing Lab: Notes/Report: [facility] , Troponin I High Sensitivity 7.8 4.0-51.3 pg/mL CUT-OFF POINTS HAVE BEEN ESTABLISHED BASED ON THE FOURTH UNIVERSAL DEFINITION OF MYOCARDIAL INFARCTION. THE UPPER REFERENCE LIMIT (URL) OF TROPONIN, DEFINED THE 99TH PERCENTILE OF cTnI DISTRIBUTION IN A REFERENCE POPULATION, HAS BEEN CONFIRMED THE DECISION THRESHOLD FOR ND DIAGNOSIS. 99TH PERCENTILE = 51.4 PG/ML NOTE: HIGH-SENSITIVITY TROPONIN ASSAY IS NOT INTENDED TO BE USED IN ISOLATION BUT SHOULD BE INTERPRETED IN CONJUNCTION WITH OTHER DIAGNOSTIC AND CLINICAL INFORMATION. Performing Lab: see note ML - [facility] LB ECG 12 lead Reviewed date:04/28/2025 07:14:23 PM Interpretation: Performing Lab: Notes/Report: Source Facility: [facility]-[address] [place] [address] [place] [address] Electrocardiograph Report Signed Patient: MELISSA DUBOSE MR#: [id number] : 1960 Acct:[id number] Age/Sex: 64 / F ADM Date: 04/28/25 Loc: ER Attending Dr: Ordering Physician: Marbella Amanda Date of Service: 04/28/25 Procedure(s): ECG 12 lead Accession Number(s): [id number] cc: [facility] Test Date: 2025-04-28 Pat Name: MELISSA DUBOSE Department: Room: - 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 Measurements Intervals [place] Rate: 112 P: -[id number] ME: -07794 QRS: 89 QRSD: 126 T: 16 QT: 356 QTc: 422 Interpretive Statements 49780 Atrial fibrillation with rapid ventricular response with aberrant conduction, or ventricular premature complexes 2450 Right bundle branch block 3434 Septal myocardial infarction, age undetermined 93978 Twave abnormality, possible inferior ischemia or digitalis effect 9150 abnormal ECG Compared to ECG 03/21/2025 15:27:56 Ventricular premature complex(es) now present Aberrant conduction of supraventricular beat(s) now present Sinus rhythm no longer present Right-axis deviation no longer present Myocardial infarct finding still present Possible ischemia still present Electronically Signed On 04-28-2025 18:47:06 EDT by JUSTINE GRIMES M.D. 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 Measurements Intervals [place] Rate: 112 P: -65745 ME: -61474 QRS: 89 QRSD: 126 T: 16 QT: 356 QTc: 422 Interpretive Statements 41508 Atrial fibrill ation with rapid ventricular response with aberrant conduction, or ventricular premature complexes 2450 Right bundle br anch block 3434 Septal myocardi al infarction, age undetermined 29325 Twave abnormal ity, possible inferior ischemia or digitalis effect 9150 abnormal ECG Compared to ECG 03/21/2025 15:27:56 Ventricular prematur e complex(es) now present Aberrant conduction of supraventricular beat(s) now present Sinus rhythm no long er present Right-axis deviation no longer present Myocardial infarct finding still present Possible ischemia st ill present Electronically Alexandra d On 04-28-2025 18:47:06 EDT by JUSTINE GRIMES M.D. Dictated By: JUSTINE GRIMES Signed By: 04/28/25 1847 DD/ 1644 TD/TT: Observatory Director: JUANA chest 1V Reviewed date:04/28/2025 07:14:23 PM Interpretation: Performing Lab: Notes/Report: Source Facility: [place] [address] XRay Report Signed Patient: MELISSA DUBOSE MR#: [id number] : 1960 Acct:[id number] Age/Sex: 64 / F ADM Date: 04/28/25 Loc: ER Attending Dr: Ordering Physician: Marbella Amanda Date of Service: 04/28/25 Procedure(s): XR chest 1V Accession Number(s): [id number] cc: Alejandro Mccormack M.D.; Marbella Amanda [place] [id number] Patient Name: MELISSA DUBOSE MRN: [id number] date: 1960 Sex: F Assigned Patient Location: ED.MAIN Current Patient Location: ED.MAIN Accession/Order Number: [id number] Exam Date: 04/28/2025 17:46 Report Date: 04/28/2025 17:52 At the request of: MARBELLA AMANDA MD Procedure: XR chest 1V Plain film chest Single view HISTORY: Shortness of breath. Low pulse ox COMPARISON: CT chest 03/21/2025 FINDINGS: SUPPORT DEVICES: None POSTSURGICAL CHANGES: Sternal wires unchanged HEART: Within normal limits PULMONARY SHOBHA: Within normal limits MEDIASTINUM: Superior right peritracheal mass seen with CT of the chest 03/21/2025 LUNGS AND PLEURA: No acute lung process, pleural effusion or pneumothorax identified. BONY STRUCTURES: Intact ADDITIONAL FINDINGS None XR/XR chest 1V IMPRESSION: Right suprahilar/right paratracheal mass. No acute cardiac pulmonary disease. Impression dictated by: Damion Pendleton M.D. 04/28/2025 5:52 PM Dictation Location: [place] [address] Electronically authenticated by: [id number] Y Date: 04/28/2025 17:52 Dictated By: Damion Pendleton D.O. Signed By: 04/28/251754 DD/ 51 TD/TT: Observatory Director: [place] [address] XRay Report Signed Patient: SHELBY DUBOSE MR#: [id number] : 1960 Acct:[id number] Age/Sex: 64 / F ADM Date: 04/28/25 Loc: ER Attending Dr: Ordering Physician: Marbella Amanda Date of Service: 04/28/25 Procedure(s): XR chest 1V Accession Number(s): [id number] cc: Alejandro Mccormack M.D. ; Marbella Amanda [place] [id number] Patient Name: MELISSA DUBOSE MRN: [id number] date: 1960 Sex: F Assigned Patient Location: ED.MAIN Current Patient Loca tion: ED.MAIN Accession/Order Numb er: [id number] Exam Date: 04/28/2025 17:46 Report Date: 04/28/2025 17:52 At the request of: MARBELLA AMANDA MD Procedure: XR chest 1V Plain film chest Sin gle view HISTORY: Shortness o f breath. Low pulse ox COMPARISON: CT chest 03/21/2025 FINDINGS: SUPPORT DEVICES: None POSTSURGICAL CHANGES : Sternal wires unchanged HEART: Within normal limits PULMONARY SHOBHA: With in normal limits MEDIASTINUM: Superio r right peritracheal mass seen with CT of the chest 03/21/2025 LUNGS AND PLEURA: No acute lung process, pleural effusion or pneumothorax identified. BONY STRUCTURES: Intact ADDITIONAL FINDINGS None X R/XR chest 1V IMPRESSION: Right suprahilar/right paratracheal mass. No acute cardiac pulmonary disease. Impression dictated by: Damion Pendleton M.D. 04/28/2025 5:52 PM Dictation Location: [place] [address] Electronically authenticated by: [id number] Y Date: 04/28/2025 17:52 Dictated By: Deshawn Pendleton D.O. Signed By: 04/28/251754 DD/ 51 TD/TT: Observatory Director: CT angio chest Reviewed date:04/28/2025 07:43:06 PM Interpretation: Performing Lab: Notes/Report: Source Facility: [place] [address] CT Scan Report Signed Patient: MELISSA DUBOSE MR#: [id number] : 1960 Acct:[id number] Age/Sex: 64 / F ADM Date: 04/28/25 Loc: ER Attending Dr: Ordering Physician: Marbella Amanda Date of Service: 04/28/25 Procedure(s): CT angio chest Accession Number(s): [id number] cc: Alejandro Mccormack M.D. [place] [id number] Patient Name: MELISSA DUBOSE MRN: [id number] date: 1960 Sex: F Assigned Patient Location: ER Current Patient Location: ER Accession/Order Number: [id number] Exam Date: 04/28/2025 18:57 Report Date: 04/28/2025 19:09 At the request of: MARBELLA AMANDA MD Procedure: CT angio chest CTA Chest with PE protocol TECHNIQUE: Axial imaging with 2-D and 3-D reconstruction 100 cc of Omnipaque [address] exam was performed using one or more the following dose reduction techniques: Automated exposure control, adjustment of the MA and/or Kv according to patient size, or use of the iterative reconstruction technique. History: Shortness of breath. Low pulse ox COMPARISON: 03/21/2025 THYROID: Unremarkable TRACHEA AND BRONCHI: Patent Right mainstem bronchus stent. Patent trachea and bronchi. ESOPHAGUS: Unremarkable. HEART: Cardiomegaly PERICARDIAL EFFUSION: None CORONARY ARTERY CALCIFICATION: Present MEDIASTINUM: No adenopathy. No pneumoperitoneum. No mediastinal hematoma. Patent superior vena cava. Mild narrowing. PULMONARY SHOBHA: Redemonstration of right suprahilar mass with mediastinal extension. Extension into the right tibia paratracheal region. Adjacent compressive atelectasis of the right upper lobe. THORACIC AORTA Unremarkable PULMONARY EMBOLUS: None LUNG NODULE None LUNGS: Right upper lobe atelectasis adjacent to the mass. PLEURAL EFFUSION: Developing moderate right pleural effusion. PNEUMOTHORAX: No pneumothorax seen. CHEST WALL: No abnormality AXILLA: Unremarkable BONY STRUCTURES Intact UPPER ABDOMEN: 2 cm left adrenal lesion incompletely visualized. CT/CT angio chest IMPRESSION: No acute pulmonary embolus. Patent superior vena cava with mild narrowing. Redemonstration of right suprahilar mass with mediastinal extension. Adjacent atelectasis of the right upper lobe. Developing moderate right pleural effusion. Cardiomegaly. Seen with prior examination CT of the abdomen and pelvis 12/02/2023. Likely adenoma. Impression dictated by: Damion Pendleton M.D. 04/28/2025 7:09 PM Dictation Location: [place] [address] Electronically authenticated by: [id number] Y Date: 04/28/2025 19:09 Dictated By: Damion Pendleton D.O. Signed By: 04/28/251910 DD/ 08 TD/TT: Observatory Director: The [address] [address] [address] Scan Report Signed Patient: SHELBY DUBOSE MR#: [id number] : 1960 Acct:[id number] Age/Sex: 64 / F ADM Date: 04/28/25 Loc: ER Attending Dr: Ordering Physician: Marbella Amanda Date of Service: 04/28/25 Procedure(s): CT ang io chest Accession Number(s): [id number] cc: Alejandro Mccormack M.D. [address] [address] Patient Name: MELISSA DUBOSE MRN: [id number] date: 1960 Sex: F Assigned Patient Location: ER Current Patient Loca tion: ER Accession/Order Numb er: [id number] Exam Date: 04/28/2025 18:57 Report Date: 04/28/2025 19:09 At the request of: MARBELLA AMANDA MD Procedure: CT angio chest CTA Chest with PE protocol TECHNIQUE: Axial moise ging with 2-D and 3-D reconstruction 100 cc of Omnipaque [address] exam was performed using one or more the following dose reduction techniques: Automated exposure control, adjustment of the MA and/or Kv according to patient size, or use of the iterative reconstruction technique. History: Shortness o f breath. Low pulse ox COMPARISON: 03/21/2025 THYROID: Unremarkable TRACHEA AND BRONCHI: Patent Right mainstem bronchus stent. Patent trachea and bronchi. ESOPHAGUS: Unremarkable. HEART: Cardiomegaly PERICARDIAL EFFUSION : None CORONARY ARTERY CALCIFICATION: Present MEDIASTINUM: No adenopathy. No pneumoperitoneum. No mediastinal hematoma. Patent superior vena cava. Mild narrowing. PULMONARY SHOBHA: Redemonstration of right suprahilar mass with mediastinal extension. Extension into the right tibia paratracheal region. Adjacent compressive atelecta sis of the right upper lobe. THORACIC AORTA Unremarkable PULMONARY EMBOLUS: None LUNG NODULE None LUNGS: Right upper l obe atelectasis adjacent to the mass. PLEURAL EFFUSION: Developing moderate right pleural effusion. PNEUMOTHORAX: No pneumothorax seen. CHEST WALL: No abnormality AXILLA: Unremarkable BONY STRUCTURES Intact UPPER ABDOMEN: 2 cm left adrenal lesion incompletely visualized. C T/CT angio chest IMPRESSION: No acute pulmonary embolus. Patent superior vena cava with mild narrowing. Redemonstration of right suprahilar mass with mediastinal extension. Adjacent atelectasis of the right upper lobe. Developing moderate right pleural effusi on. Cardiomegaly. Seen with prior examination CT of the abdomen and pelvis 12/02/2023. Likely adenoma. Impression dictated by: Damion Pendleton M.D. 04/28/2025 7:09 PM Dictation Location: [place] [address] Electronically authenticated by: [id number] Y Date: 04/28/2025 19:09 Dictated By: eDshawn Pendleton D.O. Signed By: 04/28/251910 DD/ 08 TD/TT: Observatory Director: XR chest 1V Reviewed date:03/22/2025 12:41:53 PM Interpretation: Performing Lab: Notes/Report: Source Facility: [place] [address] XRay Report Signed Patient: MELISSA DUBOSE MR#: [id number] : 1960 Acct:[id number] Age/Sex: 64 / F ADM Date: 03/21/25 Loc: ER Attending Dr: Ordering Physician: Tristan Puckett Date of Service: 03/22/25 Procedure(s): XR chest 1V Accession Number(s): [id number] cc: Alejandro Mccormack M.D.; Tristan Puckett [place] [phone] Patient Name: MELISSA DUBOSE MRN: [id number] date: 1960 Sex: F Assigned Patient Location: ER Current Patient Location: Accession/Order Number: [id number] Exam Date: 03/22/2025 09:11 Report Date: 03/22/2025 09:14 At the request of: TRISTAN PUCKETT MD Procedure: XR chest 1V PORTABLE AP RECUMBENT CHEST 0344 hours CLINICAL HISTORY: post intubation COMPARISON: Plain film and CT 03/21/2025 Evaluation is limited by positioning and technique. Sternotomy wires are visualized. There is a new endotracheal tube approximately 7 cm above the melvin. The heart and lungs cannot be adequately evaluated. XR/XR chest 1V IMPRESSION: LIMITED STUDY. ENDOTRACHEAL TUBE PLACEMENT, DESCRIBED. Impression dictated by: Thalia Villalobos M.D. 03/22/2025 9:14 AM Dictation Location: [place] [address] Electronically authenticated by: [id number] Y Date: 03/22/2025 09:14 Dictated By: Thalia Villalobos M.D. Signed By: 03/22/25915 DD/ 3 TD/TT: Observatory Director: [place] [address] XRay Report Signed Patient: SHELBY DUBOSE MR#: [id number] : 1960 Acct:[id number] Age/Sex: 64 / F ADM Date: 03/21/25 Loc: ER Attending Dr: Ordering Physician: Tristan Puckett Date of Service: 03/22/25 Procedure(s): XR chest 1V Accession Number(s): [id number] cc: Alejandro Mccormack M.D. ; Tristan Puckett [place] [id number] Patient Name: MELISSA DUBOSE MRN: [id number] date: 1960 Sex: F Assigned Patient Location: ER Current Patient Location: Accession/Order Numb er: [id number] Exam Date: 03/22/2025 09:11 Report Date: 03/22/2025 09:14 At the request of: TRISTAN PUCKETT MD Procedure: XR chest 1V PORTABLE AP RECUMBEN T CHEST 0344 hours CLINICAL HISTORY: po st intubation COMPARISON: Plain fi lm and CT 03/21/2025 Evaluation is limite d by positioning and technique. Sternotomy wires are visualized. There is a new endotracheal tube approximately 7 cm above the melvin. The heart an d lungs cannot be adequately evaluated. X R/XR chest 1V IMPRESSION: LIMITED STUDY. ENDOTRACHEAL TUBE PLACEMENT, DESCRIBED. Impression dictated by: Thalia Villalobos M.D. 03/22/2025 9:14 AM Dictation Location: [place] [address] Electronically authenticated by: [id number] Y Date: 03/22/2025 09:14 Dictated By: Thalia Villalobos M.D. Signed By: 03/22/25915 DD/ 3 TD/TT: Observatory Director: DANIELA vazquez w/ con Reviewed date:08/12/2024 07:31:19 PM Interpretation: Performing Lab: Notes/Report: Source Facility: [place] [address] Cardiology Report Signed Patient: MELISSA DUBOSE MR#: [id number] : 1960 Acct:[id number] Age/Sex: 63 / F ADM Date: 08/11/24 Loc: CARD Attending Dr: JUSTINE GRIMES Ordering Physician: JUSTINE GRIMES Date of Service: 08/11/24 Procedure(s): DANIELA echo w/ con Accession Number(s): [id number] cc: Alejandro Mccormack M.D.; JUSTINE GRIMES Patient Name: MELISSA DUBOSE MR#: [id number] : 1960 Exam Date: 08/11/2024 Ordering Doctor: DR JUSTINE GRIMES M.D. ECHOCARDIOGRAM REPORT PROCEDURE: DANIELA ECHO W/ CON INDICATIONS: Chronic systolic congestive heart failure COMPARISON: None. DESCRIPTION: COMPLETE ECHOCARDIOGRAM Real-time transthoracic echocardiography with 2D, M-mode, spectral and color flow Doppler performed. QUALITY: Lumason contrast was administered due to suboptimal imaging for left ventricular opacification to improve delineation of endocardial boarders. LEFT VENTRICLE: Normal chamber size. Moderate concentric left ventricular hypertrophy. Systolic function is difficult to assess but appears moderately reduced. LV EF: Moderately reduced left ventricular ejection fraction, (35%). DIASTOLIC: ATRIAL SEPTUM: LEFT ATRIUM: Mild dilatation. RIGHT ATRIUM: Normal chamber size. RIGHT VENTRICLE: Normal chamber size. Normal right ventricular systolic function. TRICUSPID VALVE: Normal mobility and thickness. No stenosis with trivial regurgitation. No evidence of pulmonary hypertension. RVSP 20 mmHg MITRAL VALVE: Mildly thickened with normal mobility. No evidence of mitral valve stenosis. There is no mitral annular calcification. Trivial mitral regurgitation. AORTIC VALVE: Normal trileaflet appearance. No visible sclerosis. Normal leaflet mobility. No evidence of aortic valve stenosis. No aortic regurgitation. AORTIC ROOT: Normal diameter and appearance. PULMONIC VALVE: Normal thickness and mobility. No stenosis. Trivial regurgitation. PERICARDIUM: No evidence of pericardial effusion. IVC: Collapses with inspirations. Normal size. PLEURA: CONCLUSION: 1. The left ventricle is normal in size and exhibits moderate concentric hypertrophy. Systolic function is difficult to assess but appears moderately reduced. Estimated LVEF is 35%. 2. Normal right ventricular size and systolic function. 3. No significant valvular dysfunction. 4. Normal right-sided pressures. Adult Echocardiography Procedure Report Left Ventricle LVEDD (3.7 - 5.6 cm): 4.95 cm LVESD (2.2 - 4.0 cm): 4.13 cm LVIVS thickness (0.6 - 1.2 cm): 1.58 cm LVPW thickness (0.5 - 1.0 cm): 1.73 cm e': 0.05 m/s E - e': 9.10 LVOT Max Gradient: 2.23 mm[Hg] LVOT Area (cm2): 0.75 m/s Peak Velocity (LVOT): 0.75 m/s Mean Velocity (LVOT): 0.51 m/s LVOT Diameter 1.95 cm Left Ventricular Ejection Fraction: 35 % Left Atrium LA Volume Index (2D A2C): 25.62 ml/m2 Left Atrium Systolic Dimension: 4.25 cm Mitral Valve MV E to A Ratio: 0.69 Mitral Valve A-Wave Peak Velocity: 0.65 m/s Mitral Valve E-Wave Peak Velocity: 0.45 m/s Right Ventricle RV Internal Diastolic Dimension: 3.57 cm Aorta AO Root Diam: 3.30 cm Ascending Ao Diam: 3.44 cm Aortic Valve AoV Area (Peak Liam): 2.05 cm2, 2.05 cm2 AoV Area (VTI): 1.91 cm2, 1.91 cm2 Peak Velocity(Antegrade Flow): 1.09 m/s Peak Gradient(Antegrade Flow): 4.73 mm[Hg] Mean Velocity(Antegrade Flow): 0.75 m/s Mean Gradient(Antegrade Flow): 2.58 mm[Hg] Velocity Time Integral: 19.30 cm Tricuspid Valve Peak Velocity (Regurgitant Flow): 2.04 m/s, 1.80 m/s Pulmonic Valve Peak Velocity: 0.85 m/s Peak Gradient: 3.36 mm[Hg], 2.49 mm[Hg] Right Atrium Right Atrium Systolic Pressure: 52.73 ml, 52.73 ml Dictated by: Justine Grimes M.D. on 08/11/2024 at 21:07 Approved by: Justine Grimes M.D. on 08/11/2024 at 21:14 Dictated By: JUSTINE GRIMES Signed By: 08/11/242115 DD/ 13 TD/TT: Observatory Director: [place] [address] Cardiology Report Signed Patient: SHELBY DUBOSE MR#: [id number] : 1960 Acct:[id number] Age/Sex: 63 / F ADM Date: 08/11/24 Loc: CARD Attending Dr: JUSTINE GRIMES Ordering Physician: JUSTINE GRIMES Date of Service: 08/11/24 Procedure(s): CA ech o w/ con Accession Number(s): [id number] cc: Alejandro Mccormack M.D. ; JUSTINE GRIMES Patient Name: MELISSA DUBOSE MR#: [id number] : 1960 Exam Date: 08/11/2024 Ordering Doctor: DR JUSTINE GRIMES M.D. ECHOCARDIOGRAM REPORT PROCEDURE: CA ECHO W/ CON INDICATIONS: Chronic systolic congestive heart failure COMPARISON: None. DESCRIPTION: COMPLET E ECHOCARDIOGRAM Real-time transthoracic echocardiography wit h 2D, M-mode, spectral and color flow Doppler performed. QUALITY: Lumason con trast was administered due to suboptimal imaging for left ventricular opacification to improve delineation of endocardial boarders. LEFT VENTRICLE: Norm al chamber size. Moderate concentric left ventricular hypertrophy. Systoli c function is difficult to assess but appears moderately reduced. LV EF: Moderately re duced left ventricular ejection fraction, (35%). DIASTOLIC: ATRIAL SEPTUM: LEFT ATRIUM: Mild dilatation. RIGHT ATRIUM: Normal chamber size. RIGHT VENTRICLE: Nor mal chamber size. Normal right ventricular systolic function. TRICUSPID VALVE: Nor mal mobility and thickness. No stenosis with trivial regurgitation. No evidence of pulmonary hypertension. RVSP 20 mmHg MITRAL VALVE: Mildly thickened with normal mobility. No evidence of mitral valve stenosi s. There is no mitral annular calcification. Trivial mitral regurgitation. AORTIC VALVE: Normal trileaflet appearance. No visible sclerosis. Normal leaflet mobility. No evidence of aortic valve stenosis. No aortic regurgitation. AORTIC ROOT: Normal diameter and appearance. PULMONIC VALVE: Norm al thickness and mobility. No stenosis. Trivial regurgitation. PERICARDIUM: No evid ence of pericardial effusion. IVC: Collapses with inspirations. Normal size. PLEURA: CONCLUSION: 1. The left ventricl e is normal in size and exhibits moderate concentric hypertrophy. Systoli c function is difficult to assess but appears moderately reduced. Estimated L VEF is 35%. 2. Normal right ventricular size and systolic function. 3. No significant valvular dysfunction. 4. Normal right-side d pressures. Adult Echocardiograp hy Procedure Report Left Ventricle LVEDD (3.7 - 5.6 cm) : 4.95 cm LVESD (2.2 - 4.0 cm) : 4.13 cm LVIVS thickness (0.6 - 1.2 cm): 1.58 cm LVPW thickness (0.5 - 1.0 cm): 1.73 cm e': 0.05 m/s E - e': 9.10 LVOT Max Gradient: 2 .23 mm[Hg] LVOT Area (cm2): 0.75 m/s Peak Velocity (LVOT) : 0.75 m/s Mean Velocity (LVOT) : 0.51 m/s LVOT Diameter 1.95 cm Left Ventricular Eje ction Fraction: 35 % Left Atrium LA Volume Index (2D A2C): 25.62 ml/m2 Left Atrium Systolic Dimension: 4.25 cm Mitral Valve MV E to A Ratio: 0.69 Mitral Valve A-Wave Peak Velocity: 0.65 m/s Mitral Valve E-Wave Peak Velocity: 0.45 m/s Right Ventricle RV Internal Diastoli c Dimension: 3.57 cm Aorta AO Root Diam: 3.30 cm Ascending Ao Diam: 3 .44 cm Aortic Valve AoV Area (Peak Liam): 2.05 cm2, 2.05 cm2 AoV Area (VTI): 1.91 cm2, 1.91 cm2 Peak Velocity(Antegr darrel Flow): 1.09 m/s Peak Gradient(Antegr darrel Flow): 4.73 mm[Hg] Mean Velocity(Antegr darrel Flow): 0.75 m/s Mean Gradient(Antegr darrel Flow): 2.58 mm[Hg] Velocity Time Integr al: 19.30 cm Tricuspid Valve Peak Velocity (Regurgitant Flow): 2.04 m/s, 1.80 m/s Pulmonic Valve Peak Velocity: 0.85 m/s Peak Gradient: 3.36 mm[Hg], 2.49 mm[Hg] Right Atrium Right Atrium Systoli c Pressure: 52.73 ml, 52.73 ml Dictated by: Justine Grimes M.D. on 08/11/2024 at 21:07 Approved by: Justine Grimes M.D. on 08/11/2024 at 21:14 Dictated By: JUSTINE GRIMES Signed By: 08/11/242115 DD/ 13 TD/TT: Observatory Director: DANIELA blanco Reviewed date:06/23/2024 05:49:48 PM Interpretation: Performing Lab: Notes/Report: Source Facility: [place] [address] Cardiology Report Signed Patient: MELISSA DUBOSE MR#: [id number] : 1960 Acct:[id number] Age/Sex: 63 / F ADM Date: 06/23/24 Loc: CARD Attending Dr: JUSTINE GRIMES Ordering Physician: JUSTINE GRIMES Date of Service: 06/23/24 Procedure(s): DANIELA vazquez w/ ed Accession Number(s): [id number] cc: Alejandro Mccormack M.D.; JUSTINE GRIMES Patient Name: MELISSA DUBOSE MR#: [id number] : 1960 Exam Date: 06/23/2024 Ordering Doctor: DR JUSTINE GRIMES M.D. ECHOCARDIOGRAM REPORT PROCEDURE: DANIELA ECHO W/ ED INDICATIONS: heart failure with reduced ejection fraction COMPARISON: None. DESCRIPTION: COMPLETE ECHOCARDIOGRAM Real-time transthoracic echocardiography with 2D, M-mode, spectral and color flow Doppler performed. QUALITY: Lumason contrast was administered due to suboptimal imaging for left ventricular opacification to improve delineation of endocardial boarders. LEFT VENTRICLE: Mild dilatation. Moderate concentric left ventricular hypertrophy. Calculated left ventricular ejection fraction is severely reduced at 20%. Global left ventricle hypokinesis is noted LV EF: DIASTOLIC: ATRIAL SEPTUM: LEFT ATRIUM: Mild dilatation. RIGHT ATRIUM: Mild dilatation. RIGHT VENTRICLE: Normal chamber size. Normal right ventricular systolic function. TRICUSPID VALVE: MITRAL VALVE: AORTIC VALVE: AORTIC ROOT: Mildly dilated. PULMONIC VALVE: PERICARDIUM: No evidence of pericardial effusion. IVC: PLEURA: CONCLUSION: Mildly dilated left ventricle Moderate concentric left ventricular hypertrophy Severely reduced left ventricle systolic function, ejection fraction 20%, global hypokinesis is noted Mild biatrial enlargement Mildly dilated aortic root Adult Echocardiography Procedure Report Left Ventricle LVEDD (3.7 - 5.6 cm): 5.55 cm LVESD (2.2 - 4.0 cm): 4.91 cm LVIVS thickness (0.6 - 1.2 cm): 1.65 cm LVPW thickness (0.5 - 1.0 cm): 1.40 cm e': E - e': LVOT Max Gradient: LVOT Area (cm2): Peak Velocity (LVOT): Mean Velocity (LVOT): LVOT Diameter 2.22 cm Left Ventricular Ejection Fraction: 29.51 % Left Atrium LA Volume Index (2D A2C): 41.15 ml/m2 Left Atrium Systolic Dimension: Mitral Valve MV E to A Ratio: MV Max Gradient: MV Mean Gradient: Mitral Valve A-Wave Peak Velocity: Mitral Valve E-Wave Peak Velocity: Cardiovascular Orifice Area: Right Ventricle RV Internal Diastolic Dimension: 3.16 cm Aorta AO Root Diam: 3.89 cm Ascending Ao Diam: Aortic Valve AoV Area (Peak Liam): AoV Area (VTI): Deceleration Mingo: Pressure Half-Time: Peak Velocity(Antegrade Flow): Peak Gradient(Antegrade Flow): Mean Velocity(Antegrade Flow): Mean Gradient(Antegrade Flow): Velocity Time Integral: Tricuspid Valve Peak Velocity (Regurgitant Flow): Peak Velocity: Pulmonic Valve Mean Gradient: Mean Velocity: Peak Velocity: Peak Gradient: Right Atrium Right Atrium Systolic Pressure: 47.35 ml, 47.35 ml Dictated by: Lesvia Rodríguez MD on 06/23/2024 at 17:00 Approved by: Lesvia Rodríguez MD on 06/23/2024 at 17:10 Dictated By: Lesvia Rodríguez M.D. Signed By: 06/23/241710 DD/ 09 TD/TT: Observatory Director: [place] [address] Cardiology Report Signed Patient: SHELBY DUBOSE MR#: [id number] : 1960 Acct:[id number] Age/Sex: 63 / F ADM Date: 06/23/24 Loc: CARD Attending Dr: JUSTINE GRIMES Ordering Physician: JUSTINE GRIMES Date of Service: 06/23/24 Procedure(s): CA ech o w/ con Accession Number(s): [id number] cc: Alejandro Mccormack M.D. ; JUSTINE GRIMES Patient Name: MELISSA DUBOSE MR#: [id number] : 1960 Exam Date: 06/23/2024 Ordering Doctor: DR JUSTINE GRIEMS M.D. ECHOCARDIOGRAM REPORT PROCEDURE: CA ECHO W/ CON INDICATIONS: heart failure with reduced ejection fraction COMPARISON: None. DESCRIPTION: COMPLET E ECHOCARDIOGRAM Real-time transthoracic echocardiography wit h 2D, M-mode, spectral and color flow Doppler performed. QUALITY: Lumason con trast was administered due to suboptimal imaging for left ventricular opacification to improve delineation of endocardial boarders. LEFT VENTRICLE: Mild dilatation. Moderate concentric left ventricular hypertrophy. Calcula nargis left ventricular ejection fraction is severely reduced at 20%. Glob al left ventricle hypokinesis is noted LV EF: DIASTOLIC: ATRIAL SEPTUM: LEFT ATRIUM: Mild dilatation. RIGHT ATRIUM: Mild dilatation. RIGHT VENTRICLE: Nor mal chamber size. Normal right ventricular systolic function. TRICUSPID VALVE: MITRAL VALVE: AORTIC VALVE: AORTIC ROOT: Mildly dilated. PULMONIC VALVE: PERICARDIUM: No evid ence of pericardial effusion. IVC: PLEURA: CONCLUSION: Mildly dilated left ventricle Moderate concentric left ventricular hypertrophy Severely reduced lef t ventricle systolic function, ejection fraction 20%, global hypokinesis i s noted Mild biatrial enlargement Mildly dilated aorti c root Adult Echocardiograp hy Procedure Report Left Ventricle LVEDD (3.7 - 5.6 cm) : 5.55 cm LVESD (2.2 - 4.0 cm) : 4.91 cm LVIVS thickness (0.6 - 1.2 cm): 1.65 cm LVPW thickness (0.5 - 1.0 cm): 1.40 cm e': E - e': LVOT Max Gradient: LVOT Area (cm2): Peak Velocity (LVOT): Mean Velocity (LVOT): LVOT Diameter 2.22 cm Left Ventricular Eje ction Fraction: 29.51 % Left Atrium LA Volume Index (2D A2C): 41.15 ml/m2 Left Atrium Systolic Dimension: Mitral Valve MV E to A Ratio: MV Max Gradient: MV Mean Gradient: Mitral Valve A-Wave Peak Velocity: Mitral Valve E-Wave Peak Velocity: Cardiovascular Orifi ce Area: Right Ventricle RV Internal Diastoli c Dimension: 3.16 cm Aorta AO Root Diam: 3.89 cm Ascending Ao Diam: Aortic Valve AoV Area (Peak Liam): AoV Area (VTI): Deceleration Mingo: Pressure Half-Time: Peak Velocity(Antegr darrel Flow): Peak Gradient(Antegr darrel Flow): Mean Velocity(Antegr darrel Flow): Mean Gradient(Antegr darrel Flow): Velocity Time Integral: Tricuspid Valve Peak Velocity (Regurgitant Flow): Peak Velocity: Pulmonic Valve Mean Gradient: Mean Velocity: Peak Velocity: Peak Gradient: Right Atrium Right Atrium Systoli c Pressure: 47.35 ml, 47.35 ml Dictated by: Lesvia Rodríguez MD on 06/23/2024 at 17:00 Approved by: Lesvia Rodríguez MD on 06/23/2024 at 17:10 Dictated By: Lesvia Rodríguez M.D. Signed By: 06/23/241710 DD/ 09 TD/TT: Observatory Director: Reason For Referral No Information Medications Medication SIG (Take, Route, Frequency, Duration) Notes Start Date End Date Status 1st Choice Lancets Thin - tid 07/29/2024 Active Lidocaine 5 % 1 patch remove after 12 hours Externally Once a day 12/12/2023 Active metFORMIN HCl 500 MG 1 tablet with a edison l Orally bid for 30 days 07/29/2024 Active Januvia 100 MG 1 tablet Orally Once a day for 30 days 07/29/2024 Active Blood Glucose Test - as directed In Vitro tid 07/11 Active predniSONE 20 MG 2 tablets Orally Onc e a day for 5 days 12/03/2024 Active Eliquis 5 MG 1 tablet Orally Twic e a day Active Spironolactone 25 MG 1/2 tablet Orally daily Active Atorvastatin Calcium 40 MG 1 tablet Oral ly Once a day for 30 days 01/29/2024 Active Metoprolol Succinate 50 MG 1 capsule Ora lly Once a day 01/02/2024 Active Pantoprazole Sodium 40 MG 1 tablet Orall y Once a day for 30 days 03/28/2023 Active Zetia 10 MG 1 tablet Orally Once a day for 30 days Active Invokana 100 mg TAKE 1 TABLET BY RUSS TH BEFORE first meal OF the day for 30 days Active Entresto 97-103 MG 1 tablet Orally Twic e a day Active tiZANidine HCl 4 MG take 2 tablet by russ th at bedtime for 30 days Active hydrOXYzine HCl 25 MG 1 Orally QID 02/04/2024 Active Tylenol 325 MG 1 capsule as needed Orally every 6 hrs Active Social History Tobacco Use: Social History Observation Description Date Details (start date - stop date) Former Smoker 09/09/1974 - 09/09/2018 Tobacco Use/Smoking Question Answer Notes Patient is a former smoker When did you start smoking? 09/09/1974 When did you stop smoking? 09/09/2018 Alcohol Screen (Audit-C) Question Answer Notes Did you have a drink containing alcohol in the p ast year? No Points 0 Interpretation Negative AUDIT-C (Standard) Question Answer Notes Did you have a drink containing alcohol in the p ast year? 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) Active confirmed Problem 175217906033593 Unspecified atrial fibrillation (I48.91) Active confirmed Problem 250582938 Cardiomegaly (I51.7) Active confirmed Problem Acute frontal sinusitis (78455471) Acute recurrent frontal sinusitis (J01.11) Active confirmed Problem 95301961 Other fatigue (R53.83) Active confirmed Problem 177798751 Abnormal result of cardiovascular function study, unspecified (R94.30) Active confirmed Problem Hypotension (70375668) Hypotension (I95.9) Active confirmed Problem Gastroesophageal reflux disease (288391327) GERD (gastroesophageal reflux disease) (K21.9) Active confirmed Problem Atrial fibrillation (disorder) (31855119) Afib (I48.91) Active confirmed Problem Dyspnea (550761295) Dyspnea (R06.00) Active confirmed Problem Lung cancer (032436103) Lung cancer (C34.90) Active confirmed Problem 95532050 DM type 2 (diabetes mellitus, type 2) (E11.9) Active confirmed NO RETINOPATHY Problem Colitis (35059946) Colitis (K52.9) Active confi rmed Problem Weak (434901102) Weak (R53.1) Active confirmed Problem Pruritic dermatitis (5135887520) Pruritic dermatitis (L29.9) Active confirmed Problem Leukocytosis (255269335) Elevated WBCs (D72.829) Active confirmed Problem Left heart failure (75599692) Heart failure, left, with LVEF <=30% (I50.1) Active confirmed Problem 05022247 Left ventricular failure, unspecified (I50.1) Active confirmed Problem Type II diabetes mellitus without complication (317111086) Diabetes (E11.9) Active confirmed Vital Signs Temperature 98.1 degrees Fahrenheit 12/03/2024 Oximetry 89 % 04/28/2025 Blood pressure diastolic 82 mm Hg 04/28/2025 Height 70 in 04/28/2025 Blood pressure systolic 118 mm Hg 04/28/2025 Weight 243.2 lbs 12/03/2024 BMI 34.89 kg/m2 12/03/2024 Encounters Encounter Location Date Provider Diagnosis [facility] [address] [place] [address] 08/24/2024 Raul Hoy Type 2 diabetes edison itus with diabetic polyneuropathy E11.42 ; Essential (primary) hypertension I10 and Hematuria R31.9 [facility] [address] [place] [address] 04/28/2025 Raul Hoy Dyspnea R06.00 [facility] [address] [place] [address] 07/29/2024 Raul Myrickhai DM type 2 (diabetes mellitus, type 2) E11.9 [facility] [address] [facility] [place] [address] 12/03/2024 Raul Myricky Acute bronchitis, unspecified organism J20.9 ; Acute non-recurrent sinusitis, unspecified location J01.90 and Nasal congestion R09.81 [facility] [address] [place] [address] 04/30/2024 Raul [facility] [address] [facility] [place] [address] 06/23/2024 Raul [facility] [address] [facility] [place] [address] 07/01/2024 Raul hai [facility] [address] [facility] [place] [address] 07/29/2024 Raul hai [facility] [address] [facility] [place] [address] 07/29/2024 Raul Myrickhai [facility] [address] [place] [address] 08/14/2024 Raul hai [facility] [address] [facility] [place] [address] 08/26/2024 Raul hai [facility] [address] [facility] [place] [address] 08/31/2024 Raul hai [facility] [address] [place] [address] 09/07/2024 Raul hai [facility] [address] [place] [address] 12/07/2024 Raul Myricky [facility] [address] [place] [address] 12/17/2024 Raul Myricky Acute bronchitis, unspecified organism J20.9 [facility] [address] [place] [address] 12/29/2024 Raul Myricky Hematuria, unspecifi ed R31.9 and Acute bronchitis, unspecified organism J20.9 [facility] [address] [place] [address] 03/22/2025 Raul Mccormack [facility] [address] [place] [address] 04/28/2025 Raul Mccormack Assessments Encounter Date Diagnosis (ICD Code) Assessment Notes Treatment Notes Treatment Clinical Notes Section Notes 07/29/2024 DM type 2 (diabetes mellitus, type 2) (ICD-10 - E11.9) NO RETINOPATHY 08/24/2024 Type 2 diabetes mellitus with diabetic polyneuropathy (ICD-10 - E11.42) 08/24/2024 Essential (primary) hypertension (ICD-10 - I10) 12/17/2024 Acute bronchitis, unspecified organism (ICD-10 - J20.9) 12/29/2024 Hematuria, unspecified (ICD-10 - R31.9) 04/28/2025 Dyspnea (ICD-10 - R06.00) Air hunger - concerning for PE - Called ER with update -= squad to take to ER 12/03/2024 Acute bronchitis, unspecified organism (ICD-10 - J20.9) Rest and drink more liquids, especially water. You may use a humidifier or vaporizer to help keep the drainage moist. Ibxz-jly-xuofrxw Nasal Saline may help the stuffy and runny nose. Use Ibuprofen and or Tylenol as needed for fever, chills, body aches or pain. Children 5 years old should not be given ensz-nxi-fgooohu cough and cold medications such as guaifenesin and dextromethorphan. If you're over age 5, you may try gmhq-yhg-jnswcuf cold medications such as guaifenesin and dextromethorphan, or multi-symptom cold reliever such as Dayquil to help reduce the symptoms. Antibiotics have been prescribed. You should take these until completed and follow the directions. Antibiotics can sometimes cause upset stomach, and in rare cases, serious allergic reactions or serious gastrointestinal problems. If you start having severe abdominal pain, severe vomiting, or bloody diarrhea, you should be reevaluated by your physician or urgent care immediately. Follow up with your Primary Care Provider or return to clinic if symptoms do not improve within 3-5 days. If you develop severe symptoms such as shortness of breath, repeated vomiting, coughing up blood, or chest pain you should go to the emergency room or call 911 12/03/2024 Acute non-recurrent sinusitis, unspecified location (ICD-10 - J01.90) Rest and drink more liquids, especially water. You may use a humidifier or vaporizer to help keep the drainage moist. Ynsi-oqp-mcbgjtz Nasal Saline may help the stuffy and runny nose. Use Ibuprofen and or Tylenol as needed for fever, chills, body aches or pain. Children 5 years old should not be given cpoo-mhp-oqnvjpd cough and cold medications such as guaifenesin and dextromethorphan. If you're over age 5, you may try fkfo-sjl-zjwgdby cold medications such as guaifenesin and dextromethorphan, or multi-symptom cold reliever such as Dayquil to help reduce the symptoms. Antibiotics have been prescribed. You should take these until completed and follow the directions. Antibiotics can sometimes cause upset stomach, and in rare cases, serious allergic reactions or serious gastrointestinal problems. If you start having severe abdominal pain, severe vomiting, or bloody diarrhea, you should be reevaluated by your physician or urgent care immediately. Follow up with your Primary Care Provider or return to clinic if symptoms do not improve within 3-5 days 12/29/2024 Acute bronchitis, unspecified organism (ICD-10 - J20.9) 08/24/2024 Hematuria (ICD-10 - R31.9) seeing Dr Johnson - one more follow up - 12/03/2024 Nasal congestion (ICD-10 - R09.81) Plan Of Treatment Pending Test Test Name Order Date CMP (COMPLETE METABOLIC PANEL) 3 UA (URINALYSIS, COMPLETE) 12/20/2023 UA (URINALYSIS, COMPLETE) 03/16/2024 HEMOGLOBIN A1C (GLYCO) 01/17/2023 IRON, TOTAL 01/17/2023 LIPID PANEL (CHOL/TRIG/HDL/LDL) 01/18/20 23 CBC WITH DIFF 01/17/2023 Urine Culture 12/20/2023 STOOL OCCULT BLOOD 01/17/2023 CULTURE URINE 03/16/2024 PROF CHEM 8 (BAS METB) 01/24/2023 URINE MICROSCOPIC ONLY 03/16/2024 URINE MICROSCOPIC ONLY 12/20/2023 THYROID PANEL (T4/TSH/FREE T3) 3 Insurance Providers Payer Name Payer Address Payer Phone Subscriber Number Group Number Insured Name Patient Relationship to Insured Coverage Start Date Coverage End Date [place] [address] [place] [address] [id number] Melissa Dubose Self - patient is the insured 1 Medications Administered Medication Instructions Date of Administration Dosage Notes Kenalog-40 01/29/2024 120 mg Triamcinolone 40 mg/ml 12/03/2024 80 mg Medical (General) History Medical History History ICD Code Lung cancer C34.90 Surgical History Surgery Date(Month/Year) CABG Cardiac Cath- Dr Siddiqi 11/22/2023 Cardioversion 01/2024 Hospitalization History Reason Date(Month/Year) Colitis and GI bleed 11/30
--- OUTSIDE RECORDS SUMMARY | 2025-04-28 21:46 | XMS_ITS | Clinical Summary ---
Author Organization [facility] Address [address] [place] [address] Care Team Providers Care Operations Support Representative Name Role Phone Alejandro Mccormack MD Primary Care Provider [phone] Allergies Active Allergy Reactions Criticality Noted Date Comments Empagliflozin Itching 08/24/2024 Oxycodone-Acetaminophen 07/03/2016 Medications tiZANidine (Zanaflex) 4 mg tablet 2 tablets Orally at bedtime for 30 days 3 Active Eliquis 5 mg tablet Take 5 mg by mouth in the morning and at bedtime. 4 Active atorvastatin (Lipitor) 40 mg tablet Take 40 mg by mouth in the morning. Active spironolactone (Aldactone) 25 mg tabletIndications :Chronic systolic congestive heart failure (CMS/HCC) Take 0.5 tablets (12.5 mg) by mouth in the morning. 45 tablet 3 4 05/01/20 25 Active ezetimibe (Zetia) 10 mg tabletIndications :Coronary artery disease involving wainwright coronary artery of wainwright heart without angina pectoris,Hx of CABG Take 1 tablet (10 mg) by mouth once daily as directed. 90 tablet 3 4 05/01/20 25 Active pantoprazole (ProtoNix) 40 mg EC tabletIndications :Gastroesophageal reflux disease with esophagitis, unspecified whether hemorrhage Take 1 tablet (40 mg) by mouth in the morning. Do not crush, chew, or split. 90 tablet 3 4 Active metoprolol succinate XL (Toprol-XL) 100 mg 24 hr tabletIndications :Chronic systolic congestive heart failure (CMS/HCC) Take 1 tablet (100 mg) by mouth in the morning. Do not crush or chew. 90 tablet 3 4 07/29/20 25 Active Invokana 100 mg Take 100 mg by mouth before breakfast. 4 Active Januvia 100 mg tablet Take 100 mg by mouth in the morning. 4 Active metFORMIN (Glucophage) 500 mg tablet Take 500 mg by mouth with breakfast and with evening meal. 4 Active amLODIPine (Norvasc) 10 mg tabletIndications :Primary hypertension Take 1 tablet (10 mg) by mouth in the morning. 90 tablet 3 4 08/24/20 25 Active sacubitril-valsar dumont (Entresto) 97-103 mg tabletIndications :Chronic systolic congestive heart failure (CMS/HCC) Take 1 tablet by mouth two times daily. 180 tablet 3 5 11/24/19 26 Active acetaminophen (Tylenol) 325 mg tablet Take 650 mg by mouth every 6 (six) hours if needed for mild pain (1-3 pain score). Active lidocaine (Lidoderm) 5 % patch 1 (one) time each day at the same time. 4 Active predniSONE (Deltasone) 20 mg tablet 1 (one) time each day at the same time. 5 Active levoFLOXacin (Levaquin) 500 mg tablet 1 (one) time each day at the same time. 5 Active Active Problems Problem Noted Date Diagnosed Date PAF (paroxysmal atrial fibrillation) 02/09/2025 Current smoker 12/03/2024 Overview (12/03/2024): Added secondary to documentation in Social History. Adrenal mass 07/29/2024 Anticoagulated 07/29/2024 Former smoker 07/29/2024 Gastroesophageal reflux disease 07/29/2024 Gross hematuria 07/29/2024 Kidney stones 07/29/2024 Leukocytosis 07/29/2024 OAB (overactive bladder) 07/29/2024 Personal history of urinary calculi 07/29/2024 Type 2 diabetes mellitus without complication Abnormal result of cardiovas cular function study, unspecified 04/29/2024 History of cardioversion 02/19/2024 Cardiomyopathy 02/19/2024 Hyperlipidemia 02/19/2024 Acute hypoxic respiratory failure 02/18/2024 Chest pain 02/18/2024 Diabetes 02/18/2024 Headache 02/18/2024 HFrEF (heart failure with reduced ejection fract ion) 02/18/2024 Influenza A 02/18/2024 Myocardial injury 02/18/2024 NSTEMI (non-ST elevated myocardial infarction) 0 02/18/2024 S/P CABG (coronary artery bypass graft) 02/18/20 24 Shortness of breath 02/18/2024 Persistent atrial fibrillation 12/27/2023 Gastrointestinal hemorrhage 11/27/2023 Edema of lower extremity 03/22/2022 023 Hypertensive disorder 01/02/2021 04/04/2023 Coronary arteriosclerosis 06/12/20172022 Encounters Date Type Department Care Team Description 02/09/2025 1:30 PM EDT Office Visit [facility] [address] [place] [address] Ab Chapin MD PAF (paroxysmal atrial fibrillation) (CMS/[facility]) from Last 3 Months Immunizations Immunization Administration Dates Next Due Influenza, Injectable, MDCK, preservative free 05/08/2016 Influenza, Unspecified 06/21/2017 Influenza, injectable, MDCK, preservative free, quadrivalent 07/31/2019,07/28/2018 Influenza, injectable, quadr ivalent, preservative free 06/16/2021,06/22/2020,06/08/2015 Pneumococcal Polysaccharide PPV23 06/22/2020 Family History Medical History Relation Name Comments Heart attack Maternal Grandmother Stroke Maternal Grandmother Atrial fibrillation Mother Diabetes Mother Hyperlipidemia Mother Kidney disease Sister Relation Name Status Comments Father Alive Maternal Grandmother Mother Alive Sister Social History Tobacco Use Types Packs/Day Years Used Date Smoking Tobacco: Every Day Cigarettes Passive Smoke Exposure: Current Smokeless Tobacco: Never Tobacco Cessation:Ready to Q uit: Not Asked; Counseling Given: Not Answered Alcohol Use Standard Drinks/Week Comments Not Currently 0 (1 standard drink = 0.6 oz pur e alcohol) [place] Safety & Environment Answer Date Rec orded Fear of Current or Ex-Partner Not on file Emotionally Abused Not on file 10/31/2023 Physically Abused Not on file 10/31/2023 Sexually Abused Not on file 10/31/2023 Physically or Sexually Abused Not on file Comments No Sex and Gender Information Value Date Recorded Sex Assigned at Female 04/04/2023 6:13 PM EDT Legal Sex Female 10:22 PM EDT Gender Identity Female 04/04/2023 6:13 PM EDT Sexual Orientation Heterosexual or Straight 03/10 6:13 PM EDT Last Filed Vital Signs Vital Sign Reading Time Taken Comments Blood Pressure 93/58 02/09/2025 1:57 PM EDT Pulse 74 02/09/2025 1:57 PM EDT Temperature - - Respiratory Rate 15 01/17/2024 10:00 AM EDT Oxygen Saturation 94% 02/09/2025 1:57 PM EDT Inhaled Oxygen Concentration - - Weight 109 kg (241 lb) 02/09/2025 1:57 PM EDT Height 177.8 cm (5' 10 ) 02/09/2025 1:57 PM EDT Body Mass Index 34.58 02/09/2025 1:57 PM EDT Plan of Treatment Upcoming Encounters Date Type Department Care Team (Late st Contact Info) Description 06/18/2025 Hospital Encounter [facility] [address] [place] [address] Ab Chapin MD [address] [place] [address] Scheduled Procedures Name Priority Associated Diagnoses Date/Ti me Atrial Fib Ablation w/ PVI PAF (paroxysmal atrial fibrillation) (CMS/HCC) Health Maintenance Due Date Last Done Comments CT Colonography 1960 Colonoscopy 1960 Colorectal Cancer Screening 1960 FIT-DNA 1962 FIT 1962 FOBT 1960 Medicare Annual Wellness (AWV) 1960 Sigmoidoscopy 1960 Diabetes: Retinopathy Screening 1972 Depression Screening 1974 Diabetes: Urine Protein Screening 1981 Pap Smear 1983 Adult Tetanus 1984 Cervical Cancer Screening 1992 HPV/Cotest 1992 Mammogram 2002 Zoster Vaccines (1 of 2) 2012 Pneumococcal Vaccine: Pediatrics (0 to 5 Years) and At-Risk Patients (6 to 64 Years) (2 of 2 - PCV) 06/22/2021 06/22/2020 COVID-19 Vaccine ( - 2023- season) 2024 07/10/2024, 06/06/2023, 06/16/2021, Additional history exists Influenza Vaccine (#1) 2025 , 06/06/2023, 06/16/2021, Additional history exists Diabetes: Hemoglobin A1C 06/22/2025 03/22/2025 HIB Vaccines Aged Out No longer eligi ble based on patient's age to complete this topic HPV Vaccines Aged Out No longer eligi ble based on patient's age to complete this topic IPV Vaccines Aged Out No longer eligi ble based on patient's age to complete this topic Meningococcal B Vaccine Aged Out No l onger eligible based on patient's age to complete this topic Meningococcal Vaccine Aged Out No jomar rajinder eligible based on patient's age to complete this topic Rotavirus Vaccines Aged Out No longer eligible based on patient's age to complete this topic Insurance MEDICARE Member Subscriber Plan / Payer (Ef fective 2011-Present) Name:Melissa Dubose Member ID:[id number] Relation to Subscriber:Self Name:Melissa Dubose Subscriber ID:[id number] Payer ID:[id number] Group ID:Not on file Type:Medicare Address: [facility] [id number] Care Teams Operations Support Representative Relationship Specialty Start Date End Date Alejandro Mccormack MD [address] [facility] [address] [address] PCP - General 04/03/23
--- OUTSIDE RECORDS SUMMARY | 2025-04-28 21:46 | XMS_ITS | Clinical Summary ---
Author Organization [employer] tem Address [id number] [address] [place] [address] Care Team Providers Care Rivet Sticker Name Role Phone Unavailable Primary Care Provider Unavailabl e Allergies Active Allergy Reactions Criticality Noted Date Comments Oxycodone-Acetaminophen 07/03/2016 Medications amiodarone (PACERONE) 200 mg tablet Take 200 mg by mouth daily. 6 Active aspirin 81 mg Take 81 mg by mouth daily. 6 Active atorvastatin (LIPITOR) 80 mg tablet Take 80 mg by mouth daily. Active clopidogrel (PLAVIX) 75 mg tablet Take 75 mg by mouth daily. 6 Active docusate sodium 100 mg capsule Take 100 mg by mouth 2 (two) times a day as needed for constipatio n. 6 Active ferrous sulfate 325 (65 FE) mg tablet Take 325 mg by mouth 3 (three) times a day with meals. 6 Active lisinopril (PRINIVIL,ZESTRIL) 2.5 mg tablet Take 2.5 mg by mouth daily. Active metFORMIN (GLUCOPHAGE) 500 mg tablet Take 500 mg by mouth 2 (two) times a day with meals. Active metoprolol tartrate (LOPRESSOR) 25 mg tablet Take 12.5 mg by mouth 2 (two) times a day. 6 Active pantoprazole (PROTONIX) 40 mg EC tablet Take 40 mg by mouth daily. Active oxyCODONE (ROXICODONE) 5 mg immediate release tablet Take 5 mg by mouth every 4 (four) hours as needed for pain. 6 Active ondansetron ODT (ZOFRAN-ODT) 4 mg disintegrating tablet Take 4 mg by mouth every 8 (eight) hours as needed for nausea or vomiting. 6 Active hydroCHLOROthiazide (HYDRODIURIL) 12.5 mg tablet Take 12.5 mg by mouth daily. script viewed in home Active Active Problems Problem Noted Date Diagnosed Date Other specified disorders of adrenal gland 04/22 Other fatigue 04/22/2025 Atherosclerosis of [place] ronary artery of [place] heart without angina pectoris 04/21/2025 Noninfectious gastroenteritis 04/21/2025 Pneumothorax 04/21/2025 Cigarette nicotine dependenc e with nicotine-induced disorder 04/21/2025 Gastroesophageal reflux disease without esophagi tis 04/21/2025 Ischemic cardiomyopathy 04/21/2025 Acute respiratory failure with hypoxia Diabetic polyneuropathy 04/17/2025 Muscle weakness (generalized) 04/17/2025 Nausea and vomiting 04/17/2025 Unsteadiness on feet 04/17/2025 Gastrointestinal hemorrhage 04/17/2025 Atrial fibrillation 04/17/2025 Hypotension 04/16/2025 Chronic heart failure 04/16/2025 Primary hypertension 04/16/2025 Chronic obstructive pulmonary disease 04/16/2025 Malignant neoplasm of unspec ified part of right bronchus or lung 04/16/2025 Encounters Date Type Department Care Team Description 04/21/2025 Continuing Care [facility] [address] [place] [address] Chet Lonog DO Malignant neoplasm of unspecified part of right bronchus or lung (CMS-HCC) (Primary Dx); Chronic obstructive pulmonary disease, unspecified COPD type (CMS-HCC); Acute respiratory failure with hypoxia (CMS-HCC); Chronic heart failure, unspecified heart failure type (CMS-HCC); Muscle weakness (generalized); Other fatigue; Unsteadiness on feet; Diabetic polyneuropathy associated with type 2 diabetes mellitus (CMS-HCC); Nausea and vomiting, unspecified vomiting type 04/16/2025 Continuing Care [facility] [address] [place] [address] Chet Longo DO Hypotension, unspecified hypotension type (Primary Dx); Chronic heart failure, unspecified heart failure type (CMS-HCC); Primary hypertension; Chronic obstructive pulmonary disease, unspecified COPD type (CMS-HCC); Malignant neoplasm of unspecified part of right bronchus or lung (CMS-HCC) 04/13/2025 Continuing Care [facility] [address] [facility] [facility] [place] [address] Chet Longo, Malignant neoplasm of unspecified part of right bronchus or lung (CMS-HCC) (Primary Dx); Nausea and vomiting, unspecified vomiting type; Chronic obstructive pulmonary disease, unspecified COPD type (CMS-HCC); Muscle weakness (generalized); Unsteadiness on feet; Gastrointestinal hemorrhage, unspecified gastrointestinal hemorrhage type; Atrial fibrillation, unspecified type (CMS-HCC) 04/07/2025 Continuing Care [facility] [address] [facility] [place] [address] Chet Longo, Acute respiratory failure with hypoxia (CMS-HCC) (Primary Dx); Malignant neoplasm of unspecified part of right bronchus or lung (CMS-HCC); Chronic obstructive pulmonary disease, unspecified COPD type (CMS-HCC); Diabetic polyneuropathy associated with type 2 diabetes mellitus (CMS-HCC); Muscle weakness (generalized); Chronic heart failure, unspecified heart failure type (CMS-HCC); Primary hypertension; Atrial fibrillation, unspecified type (CMS-HCC); Unsteadiness on feet; Atherosclerosis of [place] coronary artery of [place] heart without angina pectoris; Noninfectious gastroenteritis, unspecified type; Pneumothorax, unspecified type; Cigarette nicotine dependence with nicotine-induced disorder; Gastroesophageal reflux disease without esophagitis; Ischemic cardiomyopathy from Last 3 Months Social History Tobacco Use Types Packs/Day Years [...] on file Sexual Orientation Not on file Last Filed Vital Signs Vital Sign Reading [...] 9.6 oz) 025 12:27 PM EDT Height 177.8 cm (5' 10 ) 07/03/2016 10: 00 AM EDT Body Mass Index 31.8 07/03/2016 10:00 AM EDT Plan of Treatment Health Maintenance Due Date Last Done Comments Diabetic Ophthalmology Exam 1962 Statin Use: Cardiovascular 1962 Statin Use: Diabetic 1962 Depression Screening 1974 Tobacco Screening 1974 Diabetic Foot Exam 1980 DTaP,Tdap and Td Vaccines (1 - Tdap) 1981 Zoster (Shingles) Vaccine (1 of 2) 1981 Pap Smear 1983 Influenza Vaccine 05/10/2025 Adult BMI Screening 04/22/2026 04/22/2025 Medical Devices Not on file Insurance MEDICARE
--- OUTSIDE RECORDS SUMMARY | 2025-04-28 21:46 | XMS_ITS ---
Author Organization [facility] Care Team Providers Care Cable Splicing Technician Name Role Phone Chet Longo Unavailable Unavailable Allergies and adverse reactions No Known Allergies Care Team Name Role Address Phone Organization Dates Chet Longo PCP [address] [place], [address], [place] (Office): : : [facility] 04/07/2025 - 04/27/2025 Goals Section Goals Description Status Target Date (resident name) will be free from symptoms and complications of hypoglycemia or hyperglycemia Active 07/11/2025 Hundred decision regarding healthcare choices Acti ve 07/11/2025 Melissa will be free from complications of altered endocrine status. Active 07/11/2025 Melissa will be free from signs of abnormal bleedi ng Active 07/11/2025 Melissa will be free from skin breakdown Active 07/11/2025 Melissa will be free from symptoms of respiratory distress . Active 07/11/2025 Melissa will be free of infect ion, pain or bleeding in the oral cavity Active 07/11/2025 Melissa will be free of sympto ms of dehydration and maintain moist mucous membranes, good skin turgor. Active 07/11/2025 Melissa will comply with facility smoking policy d aily Active 07/11/2025 Melissa will express satisfact ion with type of activities and level of activity involvement when asked through next review date. Active 07/11/2025 Melissa will have care needs met daily with assist ance of staff. Active 07/11/2025 Melissa will not exhibit signi ficant weight changes W ill complete >75% of meals w ill have intact skin Active 07/11/2025 Melissa will pass soft, formed stool at the least every 3 days Active 07/11/2025 Melissa will remain free from discomfort, complications or signs and symptoms related to gastro-intestinal alterations Active 10/2024 Melissa will verbalize adequate relief of pain Act roberto 07/11/2025 Resident Discharge goals will be met. Active 07/11/2025 Resident will be free from c omplications of medical conditions and be free from adverse effects of medications and treatments Active 07/11/2025 Resident will have reduced r isk for falls and fall related injuries Active 07/11/2025 Resident will receive Rehabi litation and Special Services as indicated. Active 07/11/2025 Resident's preferences and advanced directives w ill be honored Active 07/11/2025 Resident's psychosocial, men rimma health and behavioral needs will be met. Active 07/11/2025 The resident will be free fr om complications and symptoms of cardiac dysfunction Active 07/11/2025 The resident will remain eris e of complications related to immobility, including contractures, thrombus formation, skin-breakdown, fall related injury. Active 07/11/2025 Functional Status Code Name Recorded Time Value Entered By Bathing 04/27/2025 Extensive Assistance [facility] Chair/jmz-rm-njgea transfer 04/27/2025 Partial/moder ate assistance [facility] Eating 04/27/2025 Supervision or [facility] Feeding or Eating 04/27/2025 Supervision [facility] Lying to sitting on side of bed 04/27/2025 Partial/moderate assistance [facility] Oral hygiene 04/27/2025 Supervision or t ouching assistance [facility] Personal hygiene 04/27/2025 Substantial/maximal assi stance [facility] Roll left and right 04/27/2025 Supervision or touching assistance [facility] Shower/bathe self 04/27/2025 Not assessed [facility] Sit to lying 04/27/2025 Partial/moderate assistance [facility] Sit to stand 04/27/2025 Partial/moderate assistance [facility] Toilet transfer 04/27/2025 Not assessed [facility] Toileting hygiene 04/27/2025 Substantial/maximal ass istance [facility] Walk 10 feet 04/27/2025 Not assessed [facility] Walk 150 feet 04/27/2025 Not assessed [facility] Walk 50 feet 04/27/2025 Not assessed [facility] Immunizations Immunization Status Vaccine Details Vaccine Code CodeSystem Date Notes Influenza cancelled Influenza, high-dose, split virus, quadrivalent, injectable, preservative free 197 CVX created date: 04/09/2025 consent date: 04/09/2025 Educated by on 04/09/2025 TB 1 Step Mantoux (PPD) completed tuberculin skin test; unspecified formulation lotNumber: [id number] expiry: 06/09/2026 Mfg: PAR [email or web address] Given 0.1 unit Right Forearm intradermally 98 CVX created date: 04/07/2025 consent date: 04/07/2025 administer ed date: 04/07/2025 Educated by on 04/14/2025 Pneumovax 23 cancelled created date: 04/09/2025 consent date: 04/09/2025 Educated by on 04/09/2025 SARS-COV-2 (COVID-19) cancelled created date: 04/09/2025 consent date: 04/09/2025 Educated by on 04/09/2025 RSVPreF3 Vac Recomb Adjuvanted Intramuscular Suspension cancelled Respiratory syncytial virus (RSV), vaccine, recombinant, protein subunit RSV prefusion F, adjuvant reconstituted, 0.5 mL, preservative free 303 CVX created date: 04/09/2025 consent date: 04/09/2025 Educated by on 04/09/2025 Medications Section Medication Name Status Code CodeSystem Dose Route Frequency Admin Type Sig Text Start Date End Date Apixaban Oral Tablet 5 MG aborted 850179 5 RXNORM 5 mg Oral two times a day Routine Give 5 mg by mouth two times a day for blood thinne r 04/27 Dulcolax Suppository 10 MG aborted 209750 RXNORM 1 suppos itory Rectal as needed PRN Insert 1 suppos itory rectal ly every 24 hours as needed for Consti pation IF NO RESULT FROM MILK OF MAGNES IA, ADMINI STER DULCOL AX SUPPOS ITORY RECTAL LY AT BEDTIM E FOR CONSTI PATION 04/27 Fleet Oil Enema aborted 1 dose Rectal as needed PRN Insert 1 dose rectal ly every 24 hours as needed for Consti pation IF NO RESULT S FROM DULCOL AX, ADMINS ITER FLEET ENEMA RECTAL LY DAILY NEEDED FOR CONSTI PATION 04/27 Milk of Magnesia Suspension 400 MG/5ML aborted 024689 RXNORM 30 ml Oral as needed PRN Give 30 ml by mouth every 24 hours as needed for Consti pation If no bowel moveme nt for 3 days* 04/27 Lidocaine External Patch 5 % aborted 678170 1 RXNORM n/a n/a Topical as needed PRN Apply to affect ed area topica lly every 24 hours as needed for mild pain 04/07 Albuterol Sulfate Inhalation Nebulization Solution (2.5 MG/3ML) 0.083% aborted 700942 RXNORM 3 ml Inhalat ion three times a day Routine 3 ml inhale orally three times a day for respir atory failur e with hypoxi a 04/27 Sennosides-Do cusate Sodium Oral Tablet 8.6-50 MG aborted 759343 RXNORM 1 tablet Oral two times a day Routine Give 1 tablet by mouth two times a day for consti pation 04/27 Ipratropium-A lbuterol Inhalation Solution 0.5-2.5 (3) MG/3ML aborted 288450 2 RXNORM 3 ml Inhalat ion as needed PRN 3 ml inhale orally every 4 hours as needed for wheezi ng 04/27 Atorvastatin Calcium Oral Tablet 40 MG aborted 758118 RXNORM 40 mg Oral at bedtime Routine Give 40 mg by mouth at bedtim e for choles terol 04/27 SITagliptin Oral Tablet 100 MG aborted 704281 RXNORM 100 mg Oral one time a day Routine Give 100 mg by mouth one time a day for diabet es type 2 04/27 metFORMIN HCl Oral Tablet 500 MG aborted 060587 RXNORM 500 mg Oral two times a day Routine Give 500 mg by mouth two times a day for diabet es type 2 04/27 Metoprolol Succinate Oral Capsule ER 24 Hour Sprinkle 50 MG aborted 373618 7 RXNORM 50 mg Oral one time a day Routine Give 50 mg by mouth one time a day for HTN 04/07 Ezetimibe Oral Tablet 10 MG aborted 361104 RXNORM 10 mg Oral one time a day Routine Give 10 mg by mouth one time a day for choles terol 04/27 Ondansetron HCl Oral Tablet 4 MG aborted 965903 RXNORM 4 mg Oral as needed PRN Give 4 mg by mouth every 6 hours as needed for nausea /vomit ing 04/24 oxyCODONE HCl Oral Tablet 5 MG aborted 123691 1 RXNORM 5 mg Oral as needed PRN Give 5 mg by mouth every 4 hours as needed for modera te to severe pain 04/27 Sacubitril-Va lsartan Oral Tablet 97-103 MG aborted 524261 4 RXNORM 1 tablet Oral two times a day Routine Give 1 tablet by mouth two times a day for HTN 04/23 Pantoprazole Sodium Oral Tablet Delayed Release 40 MG aborted 266510 RXNORM 40 mg Oral one time a day Routine Give 40 mg by mouth one time a day for GERD 04/27 tiZANidine HCl Oral Capsule 4 MG aborted 916951 RXNORM 4 mg Oral at bedtime Routine Give 4 mg by mouth at bedtim e for muscle spasms 04/27 Sodium Chloride Inhalation Nebulization Solution 3 % aborted 191641 RXNORM 3 ml Inhalat ion three times a day Routine 3 ml inhale orally three times a day for respir atory failur e 04/27 Polyethylene Glycol Powder aborted 17 gram Oral two times a day Routine Give 17 gram by mouth two times a day for consti pation 04/27 Spironolacton e Oral Tablet 25 MG aborted 111886 RXNORM 12.5 mg Oral one time a day Routine Give 12.5 mg by mouth one time a day for fluid retent ion 04/27 Acetaminophen Tablet 500 MG aborted 361915 RXNORM 2 tablet Oral as needed PRN Give 2 tablet by mouth every 6 hours as needed for Pain NTE 3GM in 24 hours 04/27 Metoprolol Tartrate 25 MG Tablet aborted 648076 RXNORM 25 mg Oral two times a day Routine Give 25 mg by mouth two times a day for HTN 04/16 Lidocaine Pain Relief 4 % Patch aborted n/a n/a Topical as needed PRN Apply to affect ed area topica lly every 24 hours as needed for pain 04/13 Maalox Regular Strength Suspension 200-200-20 MG/5ML aborted 009875 RXNORM 30 ml Oral as needed PRN Give 30 ml by mouth every 4 hours as needed for Indige stion Do not exceed 6 doses in 24 hours 04/27 Imodium A-D Oral Tablet aborted 4 mg Oral as needed PRN Give 4 mg by mouth every 6 hours as needed for Diarrh ea 04/27 Promethazine HCl Oral Tablet 25 MG complete d 848089 RXNORM 1 tablet Oral as needed PRN Give 1 tablet by mouth every 6 hours as needed for nausea , vomiti ng for 14 Days can be taken PO or rectal ly once rectal form is rec'd 04/26 Sodium Chloride Solution 0.9 % complete d 055243 6 RXNORM 1 liter Intrave nous one time only One Time Only Use 1 liter intrav enousl y one time only for hydrat ion for 1 Day RATE 150cc/ hr-No Flushi ng requir ed for contin uous therap y. Observ e Site for S/S infilt ration /extra vasati on at a freque ncy based on therap y and reside nt condit ion. 04/13 Lidocaine Pain Relief 4 % Patch aborted n/a n/a Topical as needed PRN Apply to affect ed area topica lly every 24 hours as needed for pain AND Apply to lower back topica lly one time a day for pain 04/27 n/a n/a Topical one time a day Routine Apply to affect ed area topica lly every 24 hours as needed for pain AND Apply to lower back topica lly one time a day for pain 04/27 Metoprolol Tartrate Tablet aborted 12.5 mg Oral two times a day Routine Give 12.5 mg by mouth two times a day for htn 04/27 Zofran Solution complete d 4 mg Intramu scular as needed PRN Inject 4 mg intram uscula rly every 6 hours as needed for Nausea and Vomiti ng for 3 Days 04/23 Sodium Chloride Solution 0.9 % complete d 549783 6 RXNORM 1 liter Subcuta neous one time only One Time Only Inject 1 liter subcut aneous ly one time only for hydrat ion for 1 Day RATE 100cc/ hr-No Flushi ng requir ed for contin uous therap y. Observ e Site for S/S infilt ration /extra vasati on at a freque ncy based on therap y and reside nt condit ion. 04/22 Sacubitril-Va lsartan Oral Tablet 97-103 MG aborted 076201 4 RXNORM 1 tablet Oral two times a day Routine Give 1 tablet by mouth two times a day for HF 04/27 Zofran Solution aborted 4 mg Intramu scular as needed PRN Inject 4 mg intram uscula rly every 6 hours as needed for Nausea and Vomiti ng 04/27 Mental Status Section Date Assessment Total Score Description 04/09/2025 BIMS 11 moderate cognit roberto impairment CAM 0 No delirium ind icated PHQ-9 01 minimal depress ion Problems Problem # Description Date of onset Resolved Date Code CodeSystem Concern Status 1 ACUTE RECURRENT FRONTAL SINUSITIS 04/07/[address] active 2 ACUTE RESPIRATORY FAILURE WITH HYPOXIA 04/07/[address] active 3 ATHEROSCLEROTIC HEART DISEASE OF [place] CORONARY ARTERY WITHOUT ANGINA PECTORIS 04/07/[address] active 4 CARDIOMEGALY 04/07/[address] active 5 CHRONIC OBSTRUCTIVE PULMONARY DISEASE, UNSPECIFIED 04/07/[address] active 6 CORONARY ANGIOPLASTY STATUS 04/07/[address] active 7 ESSENTIAL (PRIMARY) HYPERTENSION 04/07/[address] active 8 GASTRO-ESOPHAGEAL REFLUX DISEASE WITHOUT ESOPHAGITIS 04/07/[address] active 9 GASTROINTESTINAL HEMORRHAGE, UNSPECIFIED 04/07/[address] active 10 HEART FAILURE, UNSPECIFIED 04/07/[address] active 11 HYPERLIPIDEMIA, UNSPECIFIED 04/07/[address] active 12 HYPOTENSION, UNSPECIFIED 04/07/[address] active 13 ISCHEMIC CARDIOMYOPATHY 04/07/[address] active 14 LEFT VENTRICULAR FAILURE, UNSPECIFIED 04/07/[address] active 15 MALIGNANT NEOPLASM OF UNSPECIFIED PART OF RIGHT BRONCHUS OR LUNG 04/07/[address] active 16 MUSCLE WEAKNESS (GENERALIZED) 04/07/[address] active 17 NEED FOR ASSISTANCE WITH PERSONAL CARE 04/07/[id number] active 18 NICOTINE DEPENDENCE, UNSPECIFIED, UNCOMPLICATED 04/07/[address] active 19 NON-ST ELEVATION (NSTEMI) MYOCARDIAL INFARCTION 04/07/[address] active 20 NONINFECTIVE GASTROENTERITIS AND COLITIS, UNSPECIFIED 04/07/[address] active 21 OTHER FATIGUE 04/07/[address] active 22 OTHER SPECIFIED DISORDERS OF ADRENAL GLAND 04/07/[address] active 23 OVERACTIVE BLADDER 04/07/[address] active 24 PERSONAL HISTORY OF URINARY CALCULI 04/07/[address] active 25 PNEUMONITIS DUE TO INHALATION OF FOOD AND VOMIT 04/07/[address] active 26 PNEUMOTHORAX, UNSPECIFIED 04/07/[address] active 27 PRESENCE OF AORTOCORONARY BYPASS GRAFT 04/07/[address] active 28 PRURITUS, UNSPECIFIED 04/07/[address] active 29 TYPE 2 DIABETES MELLITUS WITH DIABETIC POLYNEUROPATHY 04/07/[address] active 30 TYPE 2 DIABETES MELLITUS WITHOUT COMPLICATIONS 04/07/[address] active 31 UNSPECIFIED ATRIAL FIBRILLATION 04/07/[address] active 32 UNSPECIFIED RIGHT BUNDLE-BRANCH BLOCK 04/07/[address] active 33 UNSPECIFIED SYSTOLIC (CONGESTIVE) HEART FAILURE 04/07/[address] active 34 UNSTEADINESS ON FEET 04/07/[address] active Reason for Referral No Reasons for Referral Entered Diagnostic Results Result Code Code System Date Test Result Interpretation Reference Range Status Notes [id number] LOINC 2024 BASIC MET PNL INCL GFR (BMP) / CBC W/DIFF Completed Result for: MELISSA HEATH ( 196 2, F) 3097-3 LOINC 2024 BUN/CREATINI NE RATIO Value: 21 Units: Normal 6-22 Final 4544-3 LOINC 2024 HEMATOCRIT Value: 37.7 Units: % Normal 36.0-48.0 Final 788-0 LOINC 2024 RDW Value: 13.9 Units: % Normal 11.0-16.0 Final 770-8 LOINC 2024 NEUTROPHILS Value: 74.7 Units: % Normal 40.0-80.0 Final 736-9 LOINC 2024 LYMPHS Value: 14.2 Units: % Normal 13.0-48.0 Final 13063-4 LOINC 2024 MONOCYTES Value: 7.4 Units: % Normal 2.0-12.0 Final 713-8 LOINC 2024 EOS Value: 3.0 Units: % Normal 0.0-8.0 Final 706-2 LOINC 2024 BASO Value: 0.7 Units: % Normal 0.0-2.0 Final 27724-8 LOINC 2024 MPV Value: 8.2 Units: fL Normal 6.5-12.0 Final 70118-3 LOINC 2024 MCV Value: 93.9 Units: fL Normal 80.0-100.0 Final 718-7 [facility] 2024 HEMOGLOBIN Value: 12.5 Units: g/dL Normal 12.0-16.0 Final 786-4 [facility] 2024 MCHC Value: 33.2 Units: g/dL Normal 31.0-36.5 Final 6690-2 [facility] 2024 WBC Value: 9.0 Units: K/cmm Normal 4.5-10.8 Final 777-3 [facility] 2024 PLATELET Value: 266 Units: K/cmm Normal 150-450 Final 751-8 [facility] 2024 NEUTS (ABSOLUTE) Value: 6.80 Units: K/uL Normal 1.50-7.60 Final 731-0 [facility] 2024 LYMPHS (ABSOLUTE) Value: 1.30 Units: K/uL Normal 0.90-5.50 Final 742-7 [facility] 2024 MONOCYTES (ABSOLUTE) Value: 0.70 Units: K/uL Normal 0.15-1.10 Final 711-2 [facility] 2024 EOS (ABSOLUTE) Value: 0.30 Units: K/uL Normal 0.00-0.80 Final 704-7 [facility] 2024 BASO (ABSOLUTE) Value: 0.10 Units: K/uL Normal 0.00-0.30 Final 789-8 [facility] 2024 RBC Value: 4.01 Units: 10*3/mm 3 Normal 3.90-5.40 Final 2951-2 [facility] 2024 SODIUM Value: 138 Units: mEq/L Normal 136-145 Final 2823-3 [facility] 2024 POTASSIUM Value: 4.8 Units: mEq/L Normal 3.5-5.3 Final 2074-0 [facility] 2024 CHLORIDE Value: 98 Units: mEq/L Normal 98-110 Final 2027- [facility] 2024 CARBON DIOXIDE (CO2) Value: 27 Units: mEq/L Normal 21-33 Final 3094-0 [facility] 2024 BUN (UREA NITROGEN) Value: 17 Units: mg/dL Normal 7-25 Final 2160-0 [facility] 2024 CREATININE Value: 0.8 Units: mg/dL Normal 0.6-1.3 Final 2345-7 [facility] 2024 GLUCOSE Value: 104 Units: mg/dL High Final GLUCOSE, FASTING 65-99 mg/dL GLUCOSE, NON-FASTI NG 65-125 mg/dL 16649-8 [facility] 2024 CALCIUM Value: 9.0 Units: mg/dL Normal 8.4-10.2 Final 22676-8 [facility] 2024 GFR- Value: 88 Units: mL/min/ {1.73_m 2} Normal >60 Final 73816-9 [facility] 2024 SEQ-LUL-EHVM CAN TRISTANIAN Value: 73 Units: mL/min/ {1.73_m 2} Normal >60 Final Stage of CKD eGFR (mL/min/1 .73 square meters) Stage 1 >/= 90 or > 90 Stage 2 60 - 89 Stage 3 30 - 59 Stage 4 15 - 29 Stage 5 </= 14 or < 15 GFR is reliable for adults 17 to 69 years with stable kidney function. 771-6 [facility] 2024 NUCLEATED RBC Value: 0.2 Units: {RBC}/1 00{WBC} Normal <1.0 Final 785-6 [facility] 2024 MCH Value: 31.2 Units: pg Normal 26.0-35.0 Final Test Code Code System Name Date BASIC MET PNL INCL GFR (BMP) 04/09/2025 CBC W/DIFF 04/09/2025 BASIC MET PNL INCL GFR (BMP) 04/09/2025 CBC W/DIFF 04/09/2025 Social History Social History Observation Description Start Date End Date Code Code System Current Smoking Status Tobacco smoking consumption unknown [id number] SNOMED CT Sex Assigned At Female 1960 88278-0 [facility] Gender Identity Vital Signs Code Code System Vitals Name Values and Units Timing Information 2339-0 [facility] Blood Sugar Dknwh=931.0 Units=mg/dL 04/27/2025 9279-1 [facility] Respiratory Rate Value=18.0 Units=/m in 04/27/2025 8462-4 [facility] Blood Pressure-Diastolic Value=63 Un its=mmHg 04/27/2025 8480-6 [facility] Blood Pressure-Systolic Hiqrw=644 Un its=mmHg 04/27/2025 8310-5 [facility] Body Temperature Value=97.3 Units= F 04/27/2025 8867-4 [facility] Heart rate Value=94.0 Units=/min 28499-6 [facility] O2 % BldC Oximetry Value=94.0 Units= % 04/27/2025 49536-1 [facility] Pain Level Value=3.0 04/27/2025 40003-8 [facility] Weight Lhawn=586.4 Units=Lbs 8302-2 [facility] Height Value=70.0 Units=Inches 04/08/2025
--- OUTSIDE RECORDS SUMMARY | 2025-04-28 21:47 | XMS_ITS | CCD ---
Author Organization [facility] Care Team Providers Care Laser Cutter Name Role Phone PHYSICIAN, DEFAULT Unavailable Unavailable [...] Unavailable Madison Magana MD Primary Care Provider 1( [phone] Madison Magana MD Primary Care Provider Isaac Greenwood Admitting Unavailable Madison Magana Primary Care Unavailable Jaimie Lopez Consulting Unavailable Johnny Bernal Attending Unavailable Zach Jones Consulting Unavailable Justine Jacobo Consulting Jayne López Consulting Unavailable Unavailable Primary Care Provider UnavailGLENNY Marti Admitting Unavailable MARYANA ALEJADNRO Referring Unavailable MADISON MAGANA Primary Care Unavailable [...] / oxyCODONE Drug Allergy 6 AOF [facility] Repository (1 source) No Known Allergies; Translations: [No Known Allergies] Propensity to adverse reactions (disorder) 7 [facility] Repository (5 sources) Acetaminophen / oxyCODONE; Translations: [OXYCODONE-ACETAM INOPHEN] Drug Allergy 6 [facility] Repository (1 source) empagliflozin; Translations: [EMPAGLIFLOZIN] Drug Allergy 4 [facility] Repository Medications Current Medications Medication Drug [...] Active docusate sodium 50 mg / sennosides, assisted 8.6 mg oral tablet (2 sources) Start: [...] Start: 06-02-2024 take 2 tablets by mo [facility] once daily metoprolol succinate 50 mg ER [...] for pain. 07/03/2016 Active polyethylene glycol 3350 20344 mg powder for oral solution (4 sources) [...] tab(s), Oral, BID, 10 tab(s), Refill(s) 0, [facility] #72, 176, cm, 09/17/24 13:57:00 EST, [...] afterwards, # 2 cap(s), Refills(s) 0, Pharmacy: [facility], 178, cm, 06/02/24 14:00:00 EDT, Height/Length [...] disease (20 sources) Atherosclerotic heart disease of [place] coronary artery without angina pectoris; Translations: [Coronary [...] sources) Long-term current use of anticoagulant; Translations: [intermediate (current) use of anticoagulants] Onset: 4 Episodic [...] ocumentation in Social History. 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; Translations: [OTH [facility] CURRENT DRUG THERAPY] Onset: 04-11-2022 Episodic Other [...] (Bld)on 04-07-2025 Basophils (Bld) [#/Vol] 0.04 10*3/uL [facility] Basophils/100 WBC (Bld) 0.5 % 0.0 - 2.0 % [facility] Eosinophils (Bld) [#/Vol] 0.27 10*3/uL [facility] Eosinophils/100 WBC (Bld) 3.3 % 0.0 - 6.0 % [facility] Erythrocyte distribution width (RBC) [Ratio] 13.0 % 11.5 - 14.5 % [facility] Hematocrit (Bld) [Volume fraction] 39.3 % 36.0 - 46.0 % [facility] Hemoglobin (Bld) [Mass/Vol] 12.0 g/dL 12.0 - 16.0 g/dL [facility] Immature granulocytes (Bld) [#/Vol] 0.04 10*3/uL [facility] Immature granulocytes/100 WBC (Bld) 0.5 % 0.0 - 0.9 % [facility] Interpretation and review of laboratory results Abnormal [facility] Lymphocytes (Bld) [#/Vol] 1.12 10*3/uL Low [facility] Lymphocytes/100 WBC (Bld) 13.7 % 13.0 - 44.0 % [facility] MCH (RBC) [Entitic mass] 30.8 pg 26.0 - 34.0 pg [facility] MCHC (RBC) [Mass/Vol] 30.5 g/dL Low 32.0 - 36.0 g/dL [facility] MCV (RBC) [Entitic vol] 101 fL High 80 - 100 fL [facility] Monocytes (Bld) [#/Vol] 0.68 10*3/uL [facility] Monocytes/100 WBC (Bld) 8.3 % 2.0 - 10.0 % [facility] Neutrophils (Bld) [#/Vol] 6.05 10*3/uL [facility] Neutrophils/100 WBC (Bld) 73.7 % 40.0 - 80.0 % [facility] Nucleated RBC/100 WBC (Bld) [Ratio] 0.0 % [facility] Platelets (Bld) [#/Vol] 251 10*3/uL [facility] RBC (Bld) [#/Vol] 3.90 10*6/uL [facility] WBC (Bld) [#/Vol] 8.2 10*3/uL [facility] Basophils (Bld) [#/Vol] 0.04 x10*3/uL Normal 0.00-0.10 [facility] Comment on above: Performed By: #### 5 7021-8 ####DERRICK Hall ([id number])[facility] ([facility])[address] [place] [address] Basophils/100 WBC (Bld) 0.5 % Normal 0.0-2.0 [facility] Comment on above: Performed By: #### 5 7021-8 ####DERRICK Hall ([id number])[facility] ([facility])[address] [place] [address] Eosinophils (Bld) [#/Vol] 0.27 x10*3/uL Normal 0.00-0.70 [facility] Comment on above: Performed By: #### 5 7021-8 ####DERRICK Hall ([id number])[facility] ([facility])[id number] [place] [address] Eosinophils/100 WBC (Bld) 3.3 % Normal 0.0-6.0 [facility] Comment on above: Performed By: #### 5 7021-8 ####DERRICK Hall ([id number])[facility] ([facility])[id number] [place] [address] Erythrocyte distribution width (RBC) [Ratio] 13.0 % Normal 11.5-14.5 [facility] Comment on above: Performed By: #### 5 7021-8 ####DERRICK Hall ([id number])[facility] ([facility])[address] [place] [address] Hematocrit (Bld) [Volume fraction] 39.3 % Normal 36.0-46.0 [facility] Comment on above: Performed By: #### 5 7021-8 ####DERRICK Hall ([id number])[facility] ([facility])[address] [place] [address] Hemoglobin (Bld) [Mass/Vol] 12.0 g/dL Normal 12.0-16.0 [facility] Comment on above: Performed By: #### 5 7021-8 ####DERRICK Hall ([id number])[facility] ([facility])[address] [place] [address] Immature granulocytes (Bld) [#/Vol] 0.04 x10*3/uL Normal 0.00-0.70 [facility] Comment on above: Performed By: #### 5 7021-8 ####DERRICK Hall ([id number])[facility] ([facility])[address] [place] [address] Immature granulocytes/100 WBC (Bld) 0.5 % Normal 0.0-0.9 [facility] Comment on above: Result Comment: Arlen ture Granulocyte Count (IG) includes promyelocytes, myelocytes and metamyelocytes but does not include bands. Percent differential counts (%) should be interpreted in the context of the absolute cell counts (cells/UL). Performed By: #### 5 7021-8 ####DERRICK Hall ([id number])[facility] ([facility])[address] [place] [address] Lymphocytes (Bld) [#/Vol] 1.12 x10*3/uL Low 1.20-4.80 [facility] Comment on above: Performed By: #### 5 7021-8 ####DERRICK Hall ([id number])[facility] ([facility])[address] [place] [address] Lymphocytes/100 WBC (Bld) 13.7 % Normal 13.0-44.0 [facility] Comment on above: Performed By: #### 5 7021-8 ####DERRICK Hall ([id number])[facility] ([facility])[address] [place] [address] MCH (RBC) [Entitic mass] 30.8 pg Normal 26.0-34.0 [facility] Comment on above: Performed By: #### 5 7021-8 ####DERRICK Hall ([id number])[facility] ([facility])[address] [place] [address] MCHC (RBC) [Mass/Vol] 30.5 g/dL Low 32.0-36.0 [facility] Comment on above: Performed By: #### 5 7021-8 ####DERRICK Hall ([id number])[facility] ([facility])[address] [place] [address] MCV (RBC) [Entitic vol] 101 fL High 80-100 [facility] Comment on above: Performed By: #### 5 7021-8 ####DERRICK Hall ([id number])[facility] ([facility])[address] [place] [address] Monocytes (Bld) [#/Vol] 0.68 x10*3/uL Normal 0.10-1.00 [facility] Comment on above: Performed By: #### 5 7021-8 ####DERRICK Hall ([id number])[facility] ([facility])[address] [place] [address] Monocytes/100 WBC (Bld) 8.3 % Normal 2.0-10.0 [facility] Comment on above: Performed By: #### 5 7021-8 ####DERRICK Hall ([id number])[facility] ([facility])[address] [place] [address] Neutrophils (Bld) [#/Vol] 6.05 x10*3/uL Normal 1.20-7.70 [facility] Comment on above: Result Comment: Perc ent differential counts (%) should be interpreted in the context of the absolute cell counts (cells/uL). Performed By: #### 5 7021-8 ####DERRICK Hall ([id number])[facility] ([facility])[address] [place] [address] Neutrophils/100 WBC (Bld) 73.7 % Normal 40.0-80.0 [facility] Comment on above: Performed By: #### 5 7021-8 ####DERRICK Hall ([id number])[facility] ([facility])[address] [place] [address] Nucleated RBC/100 WBC (Bld) [Ratio] 0.0 /100 WBCs Normal 0.0-0.0 [facility] Comment on above: Performed By: #### 5 7021-8 ####DERRICK Hall ([id number])[facility] ([facility])[address] [place] [address] Platelets (Bld) [#/Vol] 251 x10*3/uL Normal 150-450 [facility] Comment on above: Performed By: #### 5 7021-8 ####DERRICK Hall ([id number])[facility] ([facility])[address] [place] [address] RBC (Bld) [#/Vol] 3.90 x10*6/uL Low 4.00-5.20 [facility] Comment on above: Performed By: #### 5 7021-8 ####DERRICK Hall ([id number])[facility] ([facility])[id number] [place] [address] WBC (Bld) [#/Vol] 8.2 x10*3/uL Normal 4.4-11.3 [facility] Comment on above: Performed By: #### 5 7021-8 ####DERRICK Hall ([id number])[facility] ([facility])[address] [place] [address] Glucose Test strip manual (B ld) [Mass/Vol]on 04-07-2025 Glucose [Mass/Vol] 177 mg/dL High 74 - 99 mg/dL [facility] Interpretation and review of laboratory results Abnormal [facility] Glucose [Mass/Vol] 177 mg/dL High 74-99 [facility] Comment on above: Performed By: #### 2 341-6 ####DERRICK Hall ([id number])[facility] ([facility])[address] [place] [address] Magnesiumon 04-07-2025 Magnesium [Mass/Vol] 2.04 mg/dL 1.60 - 2.40 mg/dL [facility] Magnesium [Mass/Vol] 2.04 mg/dL Normal 1.60-2.40 [facility] Comment on above: Performed By: #### 1 9123-9 ####DERRICK Hall ([id number])[facility] ([facility])[address] [place] [address] Magnesium [Mass/Vol]on 04-07 Interpretation and review of laboratory results Normal [facility] No Panel Informationon 04-07 [facility] Renal function 2000 panelon 04-07-2025 Albumin BCP dye [Mass/Vol] 3.0 g/dL Low 3.4 - 5.0 g/dL [facility] Anion gap [Moles/Vol] 13 mmol/L 10 - 2 0 mmol/L [facility] Calcium [Mass/Vol] 9.1 mg/dL 8.6 - 10. 6 mg/dL [facility] Chloride [Moles/Vol] 100 mmol/L 98 - 10 7 mmol/L [facility] CO2 [Moles/Vol] 26 mmol/L 21 - 32 mmol/L [facility] Creatinine [Mass/Vol] 0.52 mg/dL 0.50 - 1.05 mg/dL [facility] eGFR - PINF [facility] Glucose [Mass/Vol] 180 mg/dL High 74 - 99 mg/dL [facility] Interpretation and review of laboratory results Abnormal [facility] Phosphate [Mass/Vol] 3.1 mg/dL 2.5 - 4 .9 mg/dL [facility] Potassium [Moles/Vol] 4.6 mmol/L 3.5 - 5.3 mmol/L [facility] Sodium [Moles/Vol] 134 mmol/L Low 136 - 145 mmol/L [facility] Urea nitrogen [Mass/Vol] 10 mg/dL 6 - 23 mg/dL [facility] Albumin BCP dye [Mass/Vol] 3.0 g/dL Low 3.4-5.0 [facility] Comment on above: Performed By: #### 2 4362-6 ####DERRICK Hall ([id number])[facility] ([facility])[address] [place] [address] Anion gap [Moles/Vol] 13 mmol/L Normal 10-20 [facility] Comment on above: Performed By: #### 2 4362-6 ####DERRICK Hall ([id number])[facility] ([facility])[address] [place] [address] Calcium [Mass/Vol] 9.1 mg/dL Normal 8.6-10.6 [facility] Comment on above: Performed By: #### 2 4362-6 ####DERRICK BRAR L ([id number])[facility] ([facility])[address] [place] [address] Chloride [Moles/Vol] 100 mmol/L Normal 98-107 [facility] Comment on above: Performed By: #### 2 4362-6 ####DERRICK BRAR L ([id number])[facility] ([facility])[address] [place] [address] CO2 [Moles/Vol] 26 mmol/L Normal 21-32 [facility] Comment on above: Performed By: #### 2 4362-6 ####DERRICK BRAR L ([id number])[facility] ([facility])[address] [place] [address] Creatinine [Mass/Vol] 0.52 mg/dL Normal 0.50-1.05 [facility] Comment on above: Performed By: #### 2 4362-6 ####DERRICK BRAR L ([id number])[facility] ([facility])[address] [place] [address] Glomerular filtration rate >90 Normal >60 [facility] Comment on above: Result Comment: Calc ulations of estimated GFR are performed using the 2020 CKD-EPI Study Refit equation without the race variable for the IDMS-Traceable creatinine methods.https://jasn.asnjournals.org/content/early/ N.9958230280 Performed By: #### 2 4362-6 ####DERRICK BRAR L ([id number])[facility] ([facility])[address] [place] [address] Glucose [Mass/Vol] 180 mg/dL High 74-99 [facility] Comment on above: Performed By: #### 2 4362-6 ####DERRICK Hall ([id number])[facility] ([facility])[address] [place] [address] Phosphate [Mass/Vol] 3.1 mg/dL Normal 2.5-4.9 [facility] Comment on above: Performed By: #### 2 4362-6 ####DERRICK Hall ([id number])[facility] ([facility])[address] [place] [address] Potassium [Moles/Vol] 4.6 mmol/L Normal 3.5-5.3 [facility] Comment on above: Performed By: #### 2 4362-6 ####DERRICK Hall ([id number])[facility] ([facility])[address] [place] [address] Sodium [Moles/Vol] 134 mmol/L Low 136-145 [facility] Comment on above: Performed By: #### 2 4362-6 ####DERRICK Hall ([id number])[facility] ([facility])[address] [place] [address] Urea nitrogen [Mass/Vol] 10 mg/dL Normal 6-23 [facility] Comment on above: Performed By: #### 2 4362-6 ####DERRICK Hall ([id number])[facility] ([facility])[address] [place] [address] XR CHEST 1 VIEWon 04-07-2025 XR CHEST 1 VIEW Normal [facility] CBC W Auto Differential pane l (Bld)on 04-06-2025 Basophils (Bld) [#/Vol] 0.04 10*3/uL [facility] Basophils/100 WBC (Bld) 0.5 % 0.0 - 2.0 % [facility] Eosinophils (Bld) [#/Vol] 0.18 10*3/uL [facility] Eosinophils/100 WBC (Bld) 2.3 % 0.0 - 6.0 % [facility] Erythrocyte distribution width (RBC) [Ratio] 12.8 % 11.5 - 14.5 % [facility] Hematocrit (Bld) [Volume fraction] 38.8 % 36.0 - 46.0 % [facility] Hemoglobin (Bld) [Mass/Vol] 12.1 g/dL 12.0 - 16.0 g/dL [facility] Immature granulocytes (Bld) [#/Vol] 0.04 10*3/uL [facility] Immature granulocytes/100 WBC (Bld) 0.5 % 0.0 - 0.9 % [facility] Interpretation and review of laboratory results Abnormal [facility] Lymphocytes (Bld) [#/Vol] 0.99 10*3/uL Low [facility] Lymphocytes/100 WBC (Bld) 12.9 % 13.0 - 44.0 % [facility] MCH (RBC) [Entitic mass] 30.8 pg 26.0 - 34.0 pg [facility] MCHC (RBC) [Mass/Vol] 31.2 g/dL Low 32.0 - 36.0 g/dL [facility] MCV (RBC) [Entitic vol] 99 fL 80 - 100 fL [facility] Monocytes (Bld) [#/Vol] 0.65 10*3/uL [facility] Monocytes/100 WBC (Bld) 8.5 % 2.0 - 10.0 % [facility] Neutrophils (Bld) [#/Vol] 5.78 10*3/uL [facility] Neutrophils/100 WBC (Bld) 75.3 % 40.0 - 80.0 % [facility] Nucleated RBC/100 WBC (Bld) [Ratio] 0.0 % [facility] Platelets (Bld) [#/Vol] 213 10*3/uL [facility] RBC (Bld) [#/Vol] 3.93 10*6/uL [facility] WBC (Bld) [#/Vol] 7.7 10*3/uL [facility] Basophils (Bld) [#/Vol] 0.04 x10*3/uL Normal 0.00-0.10 [facility] Comment on above: Performed By: #### 5 7021-8 ####DERRICK Hall ([id number])[facility] ([facility])[address] [place] [address] Basophils/100 WBC (Bld) 0.5 % Normal 0.0-2.0 [facility] Comment on above: Performed By: #### 5 7021-8 ####DERRICK BRAR L ([id number])[facility] ([facility])[id number] [place] [address] Eosinophils (Bld) [#/Vol] 0.18 x10*3/uL Normal 0.00-0.70 [facility] Comment on above: Performed By: #### 5 7021-8 ####DERRICK Hall ([id number])[facility] ([facility])[address] [place] [address] Eosinophils/100 WBC (Bld) 2.3 % Normal 0.0-6.0 [facility] Comment on above: Performed By: #### 5 7021-8 ####DERRICK BRAR L ([id number])[facility] ([facility])[address] [place] [address] Erythrocyte distribution width (RBC) [Ratio] 12.8 % Normal 11.5-14.5 [facility] Comment on above: Performed By: #### 5 7021-8 ####DERRICK BRAR L ([id number])[facility] ([facility])[address] [place] [address] Hematocrit (Bld) [Volume fraction] 38.8 % Normal 36.0-46.0 [facility] Comment on above: Performed By: #### 5 7021-8 ####DERRICK BRAR L ([id number])[facility] ([facility])[address] [place] [address] Hemoglobin (Bld) [Mass/Vol] 12.1 g/dL Normal 12.0-16.0 [facility] Comment on above: Performed By: #### 5 7021-8 ####DERRICK Hall ([id number])[facility] ([facility])[address] [place] [address] Immature granulocytes (Bld) [#/Vol] 0.04 x10*3/uL Normal 0.00-0.70 [facility] Comment on above: Performed By: #### 5 7021-8 ####DERRICK Hall ([id number])[facility] ([facility])[address] [place] [address] Immature granulocytes/100 WBC (Bld) 0.5 % Normal 0.0-0.9 [facility] Comment on above: Result Comment: Arlen ture Granulocyte Count (IG) includes promyelocytes, myelocytes and metamyelocytes but does not include bands. Percent differential counts (%) should be interpreted in the context of the absolute cell counts (cells/UL). Performed By: #### 5 7021-8 ####DERRICK Hall ([id number])[facility] ([facility])[address] [place] [address] Lymphocytes (Bld) [#/Vol] 0.99 x10*3/uL Low 1.20-4.80 [facility] Comment on above: Performed By: #### 5 7021-8 ####DERRICK Hall ([id number])[facility] ([facility])[address] [place] [address] Lymphocytes/100 WBC (Bld) 12.9 % Normal 13.0-44.0 [facility] Comment on above: Performed By: #### 5 7021-8 ####DERRICK Hall ([id number])[facility] ([facility])[address] [place] [address] MCH (RBC) [Entitic mass] 30.8 pg Normal 26.0-34.0 [facility] Comment on above: Performed By: #### 5 7021-8 ####DERRICK Hall ([id number])[facility] ([facility])[address] [place] [address] MCHC (RBC) [Mass/Vol] 31.2 g/dL Low 32.0-36.0 [facility] Comment on above: Performed By: #### 5 7021-8 ####DERRICK Hall ([id number])[facility] ([facility])[address] [place] [address] MCV (RBC) [Entitic vol] 99 fL Normal 80-100 [facility] Comment on above: Performed By: #### 5 7021-8 ####DERRICK Hall ([id number])[facility] ([facility])[address] [place] [address] Monocytes (Bld) [#/Vol] 0.65 x10*3/uL Normal 0.10-1.00 [facility] Comment on above: Performed By: #### 5 7021-8 ####DERRICK Hall ([id number])[facility] ([facility])[address] [place] [address] Monocytes/100 WBC (Bld) 8.5 % Normal 2.0-10.0 [facility] Comment on above: Performed By: #### 5 7021-8 ####DERRICK Hall ([id number])[facility] ([facility])[address] [place] [address] Neutrophils (Bld) [#/Vol] 5.78 x10*3/uL Normal 1.20-7.70 [facility] Comment on above: Result Comment: Perc ent differential counts (%) should be interpreted in the context of the absolute cell counts (cells/uL). Performed By: #### 5 7021-8 ####DERRICK CHOUDHARYMOTZCARIDAD L ([id number])[facility] ([facility])[address] [place] [address] Neutrophils/100 WBC (Bld) 75.3 % Normal 40.0-80.0 [facility] Comment on above: Performed By: #### 5 7021-8 ####DERRICK CHOUDHARYMOTZER L ([id number])[facility] LAB ([facility])[address] [place] [address] Nucleated RBC/100 WBC (Bld) [Ratio] 0.0 /100 WBCs Normal 0.0-0.0 [facility] Comment on above: Performed By: #### 5 7021-8 ####DERRICK Hall ([id number])[facility] ([facility])[address] [place] [address] Platelets (Bld) [#/Vol] 213 x10*3/uL Normal 150-450 [facility] Comment on above: Performed By: #### 5 7021-8 ####DERRICK Hall ([id number])[facility] ([facility])[address] [place] [address] RBC (Bld) [#/Vol] 3.93 x10*6/uL Low 4.00-5.20 [facility] Comment on above: Performed By: #### 5 7021-8 ####DERRICK Hall ([id number])[facility] ([facility])[address] [place] [address] WBC (Bld) [#/Vol] 7.7 x10*3/uL Normal 4.4-11.3 [facility] Comment on above: Performed By: #### 5 7021-8 ####DERRICK Hall ([id number])[facility] ([facility])[address] [place] [address] Glucose Test strip manual (B ld) [Mass/Vol]on 04-06-2025 Glucose [Mass/Vol] 210 mg/dL High 74 - 99 mg/dL [facility] Interpretation and review of laboratory results Abnormal [facility] Glucose [Mass/Vol] 210 mg/dL High 74-99 [facility] Comment on above: Performed By: #### 2 341-6 ####DERRICK Hall ([id number])[facility] ([facility])[address] [place] [address] Glucose [Mass/Vol] 211 mg/dL High 74 - 99 mg/dL [facility] Interpretation and review of laboratory results Abnormal [facility] Glucose [Mass/Vol] 211 mg/dL High 74-99 [facility] Comment on above: Performed By: #### 2 341-6 ####DERRICK Hall ([id number])[facility] ([facility])[address] [place] [address] Glucose [Mass/Vol] 245 mg/dL High 74 - 99 mg/dL [facility] Interpretation and review of laboratory results Abnormal [facility] Glucose [Mass/Vol] 245 mg/dL High 74-99 [facility] Comment on above: Performed By: #### 2 341-6 ####DERRICK Hall ([id number])[facility] ([facility])[address] [place] [address] Glucose [Mass/Vol] 194 mg/dL High 74 - 99 mg/dL [facility] Interpretation and review of laboratory results Abnormal [facility] Glucose [Mass/Vol] 194 mg/dL High 74-99 [facility] Comment on above: Performed By: #### 2 341-6 ####DERRICK Hall ([id number])[facility] ([facility])[address] [place] [address] MRSA isol Org specific cx Ql (Nose)Ordered By: Monico Vasquez on 04-06-2025 Interpretation and review of laboratory results Normal [facility] Staphylococcus sp identified Org specific cx Nom (Unsp spec) No Staphylococcus aureus isolated [facility] Magnesiumon 04-06-2025 Magnesium [Mass/Vol] 1.98 mg/dL 1.60 - 2.40 mg/dL [facility] Magnesium [Mass/Vol] 1.98 mg/dL Normal 1.60-2.40 [facility] Comment on above: Performed By: #### 1 9123-9 ####DERRICK Hall ([id number])[facility] ([facility])[address] [place] [address] Magnesium [Mass/Vol]on 04-06 Interpretation and review of laboratory results Normal [facility] No Panel Informationon 04-06 [facility] Renal function 2000 panelon 04-06-2025 Albumin BCP dye [Mass/Vol] 3.0 g/dL Low 3.4 - 5.0 g/dL [facility] Anion gap [Moles/Vol] 13 mmol/L 10 - 2 0 mmol/L [facility] Calcium [Mass/Vol] 9.2 mg/dL 8.6 - 10. 6 mg/dL [facility] Chloride [Moles/Vol] 98 mmol/L 98 - 10 7 mmol/L [facility] CO2 [Moles/Vol] 28 mmol/L 21 - 32 mmol/L [facility] Creatinine [Mass/Vol] 0.72 mg/dL 0.50 - 1.05 mg/dL [facility] eGFR - PINF [facility] Glucose [Mass/Vol] 206 mg/dL High 74 - 99 mg/dL [facility] Interpretation and review of laboratory results Abnormal [facility] Phosphate [Mass/Vol] 2.8 mg/dL 2.5 - 4 .9 mg/dL [facility] Potassium [Moles/Vol] 4.3 mmol/L 3.5 - 5.3 mmol/L [facility] Sodium [Moles/Vol] 135 mmol/L Low 136 - 145 mmol/L [facility] Urea nitrogen [Mass/Vol] 11 mg/dL 6 - 23 mg/dL [facility] Albumin BCP dye [Mass/Vol] 3.0 g/dL Low 3.4-5.0 [facility] Comment on above: Performed By: #### 2 4362-6 ####DERRICK Hall ([id number])[facility] ([facility])[address] [place] [address] Anion gap [Moles/Vol] 13 mmol/L Normal 10-20 [facility] Comment on above: Performed By: #### 2 4362-6 ####DERRICK Hall ([id number])[facility] ([facility])[address] [place] [address] Calcium [Mass/Vol] 9.2 mg/dL Normal 8.6-10.6 [facility] Comment on above: Performed By: #### 2 4362-6 ####DERRICK Hall ([id number])[facility] ([facility])[address] [place] [address] Chloride [Moles/Vol] 98 mmol/L Normal 98-107 [facility] Comment on above: Performed By: #### 2 4362-6 ####DERRICK BRAR L ([id number])[facility] ([facility])[address] [place] [address] CO2 [Moles/Vol] 28 mmol/L Normal 21-32 [facility] Comment on above: Performed By: #### 2 4362-6 ####DERRICK Hall ([id number])[facility] ([facility])[address] [place] [address] Creatinine [Mass/Vol] 0.72 mg/dL Normal 0.50-1.05 [facility] Comment on above: Performed By: #### 2 4362-6 ####DERRICK Hall ([id number])[facility] ([facility])[address] [place] [address] Glomerular filtration rate >90 Normal >60 [facility] Comment on above: Result Comment: Calc ulations of estimated GFR are performed using the 2020 CKD-EPI Study Refit equation without the race variable for the IDMS-Traceable creatinine methods.https://jasn.asnjournals.org/content// N.8995194608 Performed By: #### 2 4362-6 ####DERRICK Hall ([id number])[facility] ([facility])[address] [place] [address] Glucose [Mass/Vol] 206 mg/dL High 74-99 [facility] Comment on above: Performed By: #### 2 4362-6 ####DERRICK BRAR L ([id number])[facility] ([facility])[address] [place] [address] Phosphate [Mass/Vol] 2.8 mg/dL Normal 2.5-4.9 [facility] Comment on above: Performed By: #### 2 4362-6 ####DERRICK Hall ([id number])[facility] ([facility])[address] [place] [address] Potassium [Moles/Vol] 4.3 mmol/L Normal 3.5-5.3 [facility] Comment on above: Performed By: #### 2 4362-6 ####DERRICK Hall ([id number])[facility] ([facility])[address] [place] [address] Sodium [Moles/Vol] 135 mmol/L Low 136-145 [facility] Comment on above: Performed By: #### 2 4362-6 ####DERRICK Hall ([id number])[facility] ([facility])[address] [place] [address] Urea nitrogen [Mass/Vol] 11 mg/dL Normal 6-23 [facility] Comment on above: Performed By: #### 2 4362-6 ####DERRICK Hall ([id number])[facility] ([facility])[address] [place] [address] Albumin BCP dye [Mass/Vol] 2.9 g/dL Low 3.4 - 5.0 g/dL [facility] Anion gap [Moles/Vol] 13 mmol/L 10 - 2 0 mmol/L [facility] Calcium [Mass/Vol] 9.3 mg/dL 8.6 - 10. 6 mg/dL [facility] Chloride [Moles/Vol] 100 mmol/L 98 - 10 7 mmol/L [facility] CO2 [Moles/Vol] 27 mmol/L 21 - 32 mmol/L [facility] Creatinine [Mass/Vol] 0.58 mg/dL 0.50 - 1.05 mg/dL [facility] eGFR - PINF [facility] Glucose [Mass/Vol] 161 mg/dL High 74 - 99 mg/dL [facility] Interpretation and review of laboratory results Abnormal [facility] Phosphate [Mass/Vol] 2.9 mg/dL 2.5 - 4 .9 mg/dL [facility] Potassium [Moles/Vol] 4.6 mmol/L 3.5 - 5.3 mmol/L [facility] Sodium [Moles/Vol] 135 mmol/L Low 136 - 145 mmol/L [facility] Urea nitrogen [Mass/Vol] 11 mg/dL 6 - 23 mg/dL [facility] Albumin BCP dye [Mass/Vol] 2.9 g/dL Low 3.4-5.0 [facility] Comment on above: Performed By: #### 2 4362-6 ####DERRICK Hall ([id number])[facility] ([facility])[address] [place] [address] Anion gap [Moles/Vol] 13 mmol/L Normal 10-20 [facility] Comment on above: Performed By: #### 2 4362-6 ####DERRICK Hall ([id number])[facility] ([facility])[address] [place] [address] Calcium [Mass/Vol] 9.3 mg/dL Normal 8.6-10.6 [facility] Comment on above: Performed By: #### 2 4362-6 ####DERRICK Hall ([id number])[facility] ([facility])[address] [place] [address] Chloride [Moles/Vol] 100 mmol/L Normal 98-107 [facility] Comment on above: Performed By: #### 2 4362-6 ####DERRICK Hall ([id number])[facility] ([facility])[address] [place] [address] CO2 [Moles/Vol] 27 mmol/L Normal 21-32 [facility] Comment on above: Performed By: #### 2 4362-6 ####DERRICK Hall ([id number])[facility] ([facility])[address] [place] [address] Creatinine [Mass/Vol] 0.58 mg/dL Normal 0.50-1.05 [facility] Comment on above: Performed By: #### 2 4362-6 ####DERRICK Hall ([id number])[facility] ([facility])[address] [place] [address] Glomerular filtration rate >90 Normal >60 [facility] Comment on above: Result Comment: Calc ulations of estimated GFR are performed using the 2020 CKD-EPI Study Refit equation without the race variable for the IDMS-Traceable creatinine methods.https://jasn.asnjournals.org/content/early// N.9953870681 Performed By: #### 2 4362-6 ####DERRICK BRAR L ([id number])[facility] ([facility])[address] [place] [address] Glucose [Mass/Vol] 161 mg/dL High 74-99 [facility] Comment on above: Performed By: #### 2 4362-6 ####DERRICK BRAR L ([id number])[facility] ([facility])[address] [place] [address] Phosphate [Mass/Vol] 2.9 mg/dL Normal 2.5-4.9 [facility] Comment on above: Performed By: #### 2 4362-6 ####DERRICK BRAR L ([id number])[facility] ([facility])[address] [place] [address] Potassium [Moles/Vol] 4.6 mmol/L Normal 3.5-5.3 [facility] Comment on above: Performed By: #### 2 4362-6 ####DERRICK BRAR L ([id number])[facility] ([facility])[address] [place] [address] Sodium [Moles/Vol] 135 mmol/L Low 136-145 [facility] Comment on above: Performed By: #### 2 4362-6 ####DERRICK BRAR L ([id number])[facility] ([facility])[address] [place] [address] Urea nitrogen [Mass/Vol] 11 mg/dL Normal 6-23 [facility] Comment on above: Performed By: #### 2 4362-6 ####DERRICK Hall ([id number])[facility] ([facility])[id number] [place] [address] XR CHEST 1 VIEWon 04-06-2025 XR CHEST 1 VIEW Normal [facility] XR Chest Single viewon 04-06 [facility]AL [facility] Work Phone: Radiology Study observation (narrative) [facility] Work Phone: XR Chest Single viewOrdered By: Odalys Calvert on 04-06-2025 [facility] Work Phone: CBC W Auto Differential pane l (Bld)on 04-05-2025 Basophils (Bld) [#/Vol] 0.05 10*3/uL [facility] Basophils/100 WBC (Bld) 0.6 % 0.0 - 2.0 % [facility] Eosinophils (Bld) [#/Vol] 0.18 10*3/uL [facility] Eosinophils/100 WBC (Bld) 2.2 % 0.0 - 6.0 % [facility] Erythrocyte distribution width (RBC) [Ratio] 13.0 % 11.5 - 14.5 % [facility] Hematocrit (Bld) [Volume fraction] 38.9 % 36.0 - 46.0 % [facility] Hemoglobin (Bld) [Mass/Vol] 12.2 g/dL 12.0 - 16.0 g/dL [facility] Immature granulocytes (Bld) [#/Vol] 0.03 10*3/uL [facility] Immature granulocytes/100 WBC (Bld) 0.4 % 0.0 - 0.9 % [facility] Interpretation and review of laboratory results Abnormal [facility] Lymphocytes (Bld) [#/Vol] 1.05 10*3/uL Low [facility] Lymphocytes/100 WBC (Bld) 12.9 % 13.0 - 44.0 % [facility] MCH (RBC) [Entitic mass] 31.4 pg 26.0 - 34.0 pg [facility] MCHC (RBC) [Mass/Vol] 31.4 g/dL Low 32.0 - 36.0 g/dL [facility] MCV (RBC) [Entitic vol] 100 fL 80 - 100 fL [facility] Monocytes (Bld) [#/Vol] 0.66 10*3/uL [facility] Monocytes/100 WBC (Bld) 8.1 % 2.0 - 10.0 % [facility] Neutrophils (Bld) [#/Vol] 6.17 10*3/uL [facility] Neutrophils/100 WBC (Bld) 75.8 % 40.0 - 80.0 % [facility] Nucleated RBC/100 WBC (Bld) [Ratio] 0.0 % [facility] Platelets (Bld) [#/Vol] 217 10*3/uL [facility] RBC (Bld) [#/Vol] 3.88 10*6/uL Low [facility] WBC (Bld) [#/Vol] 8.1 10*3/uL [facility] Basophils (Bld) [#/Vol] 0.05 x10*3/uL Normal 0.00-0.10 [facility] Comment on above: Performed By: #### 5 7021-8 ####DERRICK Hall ([id number])[facility] ([facility])[address] [place] [address] Basophils/100 WBC (Bld) 0.6 % Normal 0.0-2.0 [facility] Comment on above: Performed By: #### 5 7021-8 ####DERRICK Hall ([id number])[facility] ([facility])[address] [place] [address] Eosinophils (Bld) [#/Vol] 0.18 x10*3/uL Normal 0.00-0.70 [facility] Comment on above: Performed By: #### 5 7021-8 ####DERRICK Hall ([id number])[facility] ([facility])[address] [place] [address] Eosinophils/100 WBC (Bld) 2.2 % Normal 0.0-6.0 [facility] Comment on above: Performed By: #### 5 7021-8 ####DERRICK Hall ([id number])[facility] ([facility])[address] [place] [address] Erythrocyte distribution width (RBC) [Ratio] 13.0 % Normal 11.5-14.5 [facility] Comment on above: Performed By: #### 5 7021-8 ####DERRICK Hall ([id number])[facility] ([facility])[address] [place] [address] Hematocrit (Bld) [Volume fraction] 38.9 % Normal 36.0-46.0 [facility] Comment on above: Performed By: #### 5 7021-8 ####DERRICK Hall ([id number])[facility] ([facility])[address] [place] [address] Hemoglobin (Bld) [Mass/Vol] 12.2 g/dL Normal 12.0-16.0 [facility] Comment on above: Performed By: #### 5 7021-8 ####DERRICK Hall ([id number])[facility] ([facility])[address] [place] [address] Immature granulocytes (Bld) [#/Vol] 0.03 x10*3/uL Normal 0.00-0.70 [facility] Comment on above: Performed By: #### 5 7021-8 ####DERRICK Hall ([id number])[facility] ([facility])[address] [place] [address] Immature granulocytes/100 WBC (Bld) 0.4 % Normal 0.0-0.9 [facility] Comment on above: Result Comment: Arlen ture Granulocyte Count (IG) includes promyelocytes, myelocytes and metamyelocytes but does not include bands. Percent differential counts (%) should be interpreted in the context of the absolute cell counts (cells/UL). Performed By: #### 5 7021-8 ####DERRICK Hall ([id number])[facility] ([facility])[address] [place] [address] Lymphocytes (Bld) [#/Vol] 1.05 x10*3/uL Low 1.20-4.80 [facility] Comment on above: Performed By: #### 5 7021-8 ####DERRICK Hall ([id number])[facility] ([facility])[address]66 [place] [address] Lymphocytes/100 WBC (Bld) 12.9 % Normal 13.0-44.0 [facility] Comment on above: Performed By: #### 5 7021-8 ####DERRICK Hall ([id number])[facility] ([facility])[address] [place] [address] MCH (RBC) [Entitic mass] 31.4 pg Normal 26.0-34.0 [facility] Comment on above: Performed By: #### 5 7021-8 ####DERRICK Hall ([id number])[facility] ([facility])[address] [place] [address] MCHC (RBC) [Mass/Vol] 31.4 g/dL Low 32.0-36.0 [facility] Comment on above: Performed By: #### 5 7021-8 ####DERRICK Hall ([id number])[facility] ([facility])[address]146 [place] [address] MCV (RBC) [Entitic vol] 100 fL Normal 80-100 [facility] Comment on above: Performed By: #### 5 7021-8 ####DERRICK Hall ([id number])[facility] ([facility])[address]190 [place] [address] Monocytes (Bld) [#/Vol] 0.66 x10*3/uL Normal 0.10-1.00 [facility] Comment on above: Performed By: #### 5 7021-8 ####DERRICK Hall ([id number])[facility] ([facility])[address] [place] [address] Monocytes/100 WBC (Bld) 8.1 % Normal 2.0-10.0 [facility] Comment on above: Performed By: #### 5 7021-8 ####DERRICK Hall ([id number])[facility] ([facility])[address]041 [place] [address] Neutrophils (Bld) [#/Vol] 6.17 x10*3/uL Normal 1.20-7.70 [facility] Comment on above: Result Comment: Perc ent differential counts (%) should be interpreted in the context of the absolute cell counts (cells/uL). Performed By: #### 5 7021-8 ####DERRICK Hall ([id number])[facility] ([facility])[address] [place] [address] Neutrophils/100 WBC (Bld) 75.8 % Normal 40.0-80.0 [facility] Comment on above: Performed By: #### 5 7021-8 ####DERRICK Hall ([id number])[facility] ([facility])[address]846 [place] [address] Nucleated RBC/100 WBC (Bld) [Ratio] 0.0 /100 WBCs Normal 0.0-0.0 [facility] Comment on above: Performed By: #### 5 7021-8 ####DERRICK Hall ([id number])[facility] ([facility])[address]74 [place] [address] Platelets (Bld) [#/Vol] 217 x10*3/uL Normal 150-450 [facility] Comment on above: Performed By: #### 5 7021-8 ####DERRICK Hall ([id number])[facility] ([facility])[address] [place] [address] RBC (Bld) [#/Vol] 3.88 x10*6/uL Low 4.00-5.20 [facility] Comment on above: Performed By: #### 5 7021-8 ####DERRICK Hall ([id number])[facility] ([facility])[address]202 [place] [address] WBC (Bld) [#/Vol] 8.1 x10*3/uL Normal 4.4-11.3 [facility] Comment on above: Performed By: #### 5 7021-8 ####DERRICK Hall ([id number])[facility] ([facility])[address]67 [place] [address] Glucose Test strip manual (B ld) [Mass/Vol]on 04-05-2025 Glucose [Mass/Vol] 244 mg/dL High 74 - 99 mg/dL [facility] Interpretation and review of laboratory results Abnormal [facility] Glucose [Mass/Vol] 244 mg/dL High 74-99 [facility] Comment on above: Performed By: #### 2 341-6 ####DERRICK Hall ([id number])[facility] ([facility])[address] [place] [address] Glucose [Mass/Vol] 219 mg/dL High 74 - 99 mg/dL [facility] Interpretation and review of laboratory results Abnormal [facility] Glucose [Mass/Vol] 219 mg/dL High 74-99 [facility] Comment on above: Performed By: #### 2 341-6 ####DERRICK Hall ([id number])[facility] ([facility])[address] [place] [address] Glucose [Mass/Vol] 223 mg/dL High 74 - 99 mg/dL [facility] Interpretation and review of laboratory results Abnormal [facility] Glucose [Mass/Vol] 223 mg/dL High 74-99 [facility] Comment on above: Performed By: #### 2 341-6 ####DERRICK Hall ([id number])[facility] ([facility])[address]299 [place] [address] Glucose [Mass/Vol] 194 mg/dL High 74 - 99 mg/dL [facility] Interpretation and review of laboratory results Abnormal [facility] Glucose [Mass/Vol] 194 mg/dL High 74-99 [facility] Comment on above: Performed By: #### 2 341-6 ####DERRICK Hall ([id number])[facility] ([facility])[id number] [place] [address] Magnesiumon 04-05-2025 Magnesium [Mass/Vol] 1.97 mg/dL 1.60 - 2.40 mg/dL [facility] Magnesium [Mass/Vol] 1.97 mg/dL Normal 1.60-2.40 [facility] Comment on above: Performed By: #### 1 9123-9 ####DERRICK Hall ([id number])[facility] ([facility])[address] [place] [address] Magnesium [Mass/Vol]on 04-05 Interpretation and review of laboratory results Normal [facility] No Panel Informationon 04-05 [facility] Non-gynecological cytology m ethod studyOrdered By: Benjy Paiz on 04-05-2025 Disclaimer x6rgbDTrMDGxhBCyXkUw MDAwXG Qpb4mwPSNpqQMpKpCuMaMvDoUf BommpDIdRKSgGwIbg9fxr173lC Grw7ioIQAbZbX7aESeQRDdzTzg rrz6jOygCoYhOHNsp7cjcbEbIo LwQOVgGKYkBCFacChyfxt0eJow EkMzXAPqnZgcKTSqEBr9tR68NL SzzG1hxSNsKXwqamOvQrV8PUjv EUGsKdA5VBBssMMqXWEsK9avOD WyGIejSBApNXjbuMRqXHX4oFkc n8Z7xKAzbWPrhHinXmGsFzAvGm MYa0UxHYy3iCvqR6TrPXEvMwC2 pXGfRVFzXPvqYCLeGYRswaZ2dD dswgEem09rpKDvENHjJXIbOiYh B91imc0llE01eC54YSkezdY7sT Vnp5Yze34xk553iP0neOSiPIP1 YIDhGNSvoIXdIKGjCUI0GNYvkL LaO8ofOLWkSL2udtzrJQeyHWlj HDWdmPP8EYVejEXpW5GeAQEmBL fnKDGvypn2NgMqQf6gfRBmpGgt KDvvb3egp2eqxCBqExp3YUMlNn PaGhwhEFrgj1Skb9zmTPSycy9h GVV6rPGfhFgui6Y5kNFaWEHsuM IxlhQrFPMuLbL1DAbhXO7kue40 IYMrPTX4kl4ocAYmnOipmtSfhC LoNBjqZ2GdQCYtr242ZYIwD7Nj AYOpg9F3tcFuMiZwLKOmaCX6oo S8SKEgLMn3pVFtewN4gwLapIUi I9eklK2uMNZqZR6ugpmje8nbJZ poKYuxBDMupCY5qlW8UYLqzXPt G5YbkB8sLIPwYZzlHERvahe8Vw MlPn3eqTVnrZuxMRacDafgPJpn XHBnbmNvbnRccGduZGVjXHBsYW luXHBsYWluXGYwXGZzMjRccGFy PJygd9PlzcClaIolRMPtCAT9Su L2ORI1TKE7RPn3cNBcJuObxIbr CRryXCM3AqNsVSv5pSPaKpCuzY i3APTsPMB0FZp0HGf3nCR6UECe zUp2SnMaHRG0WiaqKGi1xYm0IZ SaoZh2ZmMzZUW8FJZsATQhgOpl tUpovC1uFnQiFgNyPyhdWV6mKP AcG9ygwSRxHGXhYYHxY8noReIo xU7vcHbfEAtmPpQtFlHqYuUPok Tjl2DdgN4fRBAmWcZ5cUGqwiQr J5GweZImsUXxHPL2kpYjXJUyc2 TgJJGuv5R2bqEfsbC7nVqjISNh FFZkhAQvFQ1SPJDgYYTbCMAiki BjdC4gMFOmf21rm77nupWtPBKu scRmABJkBYDxzO2bYbUcOG2onP r9EAYryDChhXVwRvRxWQGbSC39 giBaLGAAP5OyIqXmTPNQZ7IufT G3ITEij1RhUyOtljLhvEAiqqRc BT9aCSCatHOxznGmFVU5URVaIO CGMhGgVMVnl4DuDM2nNRZnwIrt TCAwhN2jw1FpFJRpq53xQSOJzR NdVABdv8PhpUPrp3MsWUKtGSSi wX6iDASrGX7vYXZuCUraGYBngd Rbhb5gqtMzCERxTZWfB0Ptbonh hAelttFfXEXrgu9dglYvKFE7AC DfQCNUTTIwrcVjXJ44CZ3jSKJl bBzjaF4rtFVciIDVwiu9PPAojO J0QGvri5LhjSCymxCVwDO8RLnq pqEpUERcyFZzyMNGMD99GXLyXW HpUSKJGMPmCA0ixoVzg2SjqwFl pQrgUTQ4zTugVYNni9QrbK3vS2 0vhVecr5YwvLRgmqLbTNCaJWEf XgSGOZPggggqxd1bOFlxicQ3RY D6BRcyMHFcFHPgYo9rBKOusA0r E7XoYVQ8giDio8XgTgAWqRCtoU 68hIFkec25MLOjKSMgD1DuNGOf IWMfCRsmiiUteZfiMRGio02fyD QennFpr6BrqdLoGBNjO0baAFFl mGPufOMun2OrzR5feZZjqgPiLE R5bBVbRQZveZ2oEYUldDmfRUNz cD1qG6XyJXoaUp5eXQPeyttfRE 9kzq67DD1cxdXuLT7mwbPaXK58 jlWhM8vUVVgmZTCvjMBkgUckrW JmSPHoGFPvexTawi5lxJkuwWYg k56rdDT7aPW7RUQdgF7uX3JbLI bxQj4ePNUixkiokRGbcSzsHx5u PJMqTTJpd0VsiHOoq1QlAZLaCX Qhw1HqKDElb6w2kUIaoGBmt0Dq gIN6YYDfe6ZwpMm5KCJufgIlec LpPLQxyxHmO70tyYQjgBJdw0kk Z4nly5YlbT6iIFIiyJVdp1OdcZ S4ZZw3FdvfQZT8 [facility] Work Phone: Laboratory comment Darío (Report) a0yumQKxHHPkt0ctXIZdnNPqUt EwMzNcZnRuYmpcdWMxIHtccnRm MVxhbnNpXGRlZmxhbmcxMDMzXG K8pvQbXNAkWHQ2FAW1XgIox1B4 UREcIxEyZSAcRR5zrMupIWIdER 6mHCOwL8xhcB3hqic5VzTiFBOn FuJ7JGMcsxS6Kji4LFHwIYebv7 kzo0NuS5Ifm7XjQZn0xLanTjDq SKHah5cbegLgCrVxJNAyKPRpGT AvC79zTYQRF390z0cdn1hozrVh lDM0DCLqCLX3HSldyiBmbpA0QJ sgyMLcMdN5UKaolmShBBoskxFb dfChUxn7AOAzI190LMT0mIqoj4 hlQJV1PNObPBOkOnJcJw4jaTWs X286LBRjSHZHFMHexQq3FQUylc ChxgBgbYOEt033M962f4niKWWr azJzpSqXflyfw9egD087RFMjqN ChesVhZhQxYPTnuVIxgVK9IBJs SI7qqfhkLKiyCWggPABfaeY0KF AafYIuA6DvQPXfDB0okviaSUR0 BJnaMXRzCGZ7GeHrIWHym8Vrdn k0KaXexa7dvp20IHH9h9EoaGjp FKH2UMH6KyTcRo7yxPHsCRGyTH 9kUbIiaKPnSLApjl84sOfqDJdl eqSubL2lRvRoHIZgxUHcNHXpOX 1uxZNsXJQaeI5hxiglKFZwTtDa ywliNQKwjIrpyuJeZz7lfVpkOJ I4RUxlZ9ckaD9cHaJ5TTpbH9se iJ0lIGb6PRbfwHS1MYUkxY5oJG 2dziefh2lrMQksQUabSNOyrhE9 gbE6QMHilBWoT4FwlW5tHWMmHQ 2elfqzf8kgRVF7KDzjUJJtPFM5 BmAhHGZbc5Afsiv0StGow9QvuG YzYEgsV52fe566GDSeiiHgM5bg xJAxcxhxwBLtstdjUUbimbA7CN FsXHBsYWluXGYxXGZzMjBcbGFu ZzEwMzNcaGljaFxmMVxkYmNoXG OiAEgvG0axJrUmN0ImXMAyNxFj Q6mbRREelxryqY8ywRgdyKs2FI WhlsCbfvRzOKE7CYSlqNYcmjAP ckbwHFEQXFU0VAQYIzITHWNRX7 FMIENFTlRFUiAxMTEwMCBFVUNM SUQgQVZFXHBhciBDTEVWRUxBTk YtI0odZTRcGBCjJZyhHzaltSPv blxmMVxmczIyXGxhbmcxMDMzXG beM8vfSuKgCKSwkHfvYSfap5Vr PZEjDSVhNeDzoEZlhV10XRW1Ww Mkc1O5PZOmTwNhNWVgYF2ppPqn NCMbVP7rJCBgY0eyfK6cwqi2Oi EjMBQuRhK3BHJmncR7Rsb8NGWl ECidl0kmo2QtJ2Nxe5YiVWo7rV ilDgTmRBZek0opwyHzNtBoNQIe WIFoZFRwK14bJXJHB770a3wmx7 fazdOluKI8XFDxBCN3RVhlatNe qpE4NIfgmBLoXeE3XJhgptHvLP tuueSmzcSjBsc5UJWvO167IGR1 dRzvr1xrOJQ0OLHdCWAxKwXcLs 9qrFSyQ181AISvPFCKORJtzWv7 HLKaifOjqlBvqILHc969O956y0 shSWFgosUxqHeRhymyr6vhP530 XHBhcGVydzEyMjQwXHBhcGVyaD H2DUHjTM3njbqlYaSnMO9gzmye KfQmLQ3yhrt4MvNrOS0tpiuhUx ZsHRfkIFGnwiraOfQmGz5svDDh oRT4IHshw9kju4nofWUgYfh5BZ OyCkNoZzyvQHwqh7Mya1ytIKZh dg6nZHS8yGUoyIcgt8A3dEZcGL OdaYIhgbHoUGDhUdC7DNibRC7s ah70SKNhAAR8rt1ogOZsrFbudn PmjKBiFPrdT2BcYRQzs301MHNh K6SbZHQpu4I9gxAgYrKkZBSqqK H6gaL0DEFzYZh0sTWtmgC3jcVu lFMdT6uelW2sDsIgyJVjX5DozJ 3mWrTgzVLuC9XubL5vPgLsfRRv D1HlrL7mCtHsbNTrRKYroKJ7IE fez722JRK9ZlGfFVBbg8MfL7To cYxjE60jeWnwC38oOCYhyUpyeF 7vfUujlV0yHuBaRvFtPGyygUyy bGFpblxmMVxmczIwXGxhbmcxMD MfLMaxA6fuRhPePHTuzLubIXwe y9VtQLAeNWBqPvQaSlxsnHpkFV OvL73ooHAyKMXbtnH9yByzAFPt vU4dpBbzvRoeIFegXSs5mVD8XN ryt4CbG8CoiCTchKgrwREyCGPh GQ1sz8wjGjJ8yJOsKsbrTKxsQK 16KQFmtmM4CGUtx26bZJupG55o e4foTUXmxjPlLkvpnuF2tIK4TK QpSKkpgCY1BCWxHHRuGNzvFIG0 jJpuHJRpf7IkCFbzYSC3zR== [facility] Work Phone: Laboratory comment Darío (Report) a3sxtNBeAUHewUFgQwNuZHMxWL Zix6ngBNQeoTXvKfYdLcBhDzJa DagvoSIlYMUqTaSbb9cug469fH Xze4gvJTEzIgB8kIJyQXTuQ08e FBGDL089WAGbLMwhe0ehb3BvZV LfpEHmb2S8NQSTTEfxNCCHQHm7 eWywL70iu2S9HapiH7zbLIJzAS OnT9DlVL9bINOiYas2QCA8ZEE3 BROrHPHnO6DwIH6bAEDwxUKkWO u7s2sajYrsNMZfAQK7x5zkROvc msKbDF4mwg2zqMs3c7igzkWbZV TuFSZsqUHEAPBhM4KknGdcFr2x kPd1pVggVzpvDVY5Hdi1JK5kdo 38dcz2gDtcALHlckjlIoC7FEzy FUFsotbfDBt4KBevOVEojWR4KB MmcKRcR1TqDGPzTA9inag0ZFX4 QKjeXISqPmA3EBUigFFxRVOhwH irQLjae845JAY0UdNoBF3eJ2Re z1D5cB1hfQZdKCHjdLJvNaFyFY Iluo4toZGbZElsv2KxXNG7pdM2 wRAloDYgOQGhDN20Ancgm7AzPt aiBMF7ZPPduuWva9Nci3vbXkVc grZdV0cbQ1XkTPTuCHFtZKTdIm WaogNth1Lya7PksDYwvUh8i4oc IKDqYXQxzWqbi3mfZRQ3AQGnE4 F7vXOyb2puOAgmZOZgzXO8nhC8 SKIhaDKrW5KegS0lBBHyFP8vbf a4y8piTJG9DDxaTVQwCbX0czQ4 WLExtYWsELUfiAjeESrnx723TQ D5LpDzKUMcx5GiF0OmyAgmZ75b gRbrJ51bOMWozIozgB2uqOaveY 5cZjBcZnMyNFxwYXJkXHBsYWlu XGYxXGZzMjBcbGFuZzEwMzNcaG nthFvjTJpgXwJsJTTjXQhkQ4af ZjFcZnMyMCBBMQlTbGlkZXMgT2 1slZWtWh2hFjkrR2ylGEywZLGx RVFbEZzDGCBmA9NcjU2cNzfQYv BUaGluUHJlcAlccGFyIEEyCUNl jGktAlcfP1jETVMyypTFFv3oXI scCBwlxAnewW5hIhFqSuTuEaqf LK9hVUPeC4ejjILkGXNeBLBmT9 lqReXgyE1liFlkNUxlwkJpXMZk cn0= [facility] Work Phone: Pathology report Cancer Narrative [facility] Work Phone: Pathology report final diagnosis Narrative u0edvWZiCXNbvVKoIAUsOvtgoj HcGQZzzGLjV7HixlwnWJreBY7r LA7sjOjngHBpjRFnTGDgReJdb9 xdm135sOYzg2kiBICRtjptyTk1 d3dwGVLHDSakMBBGSFm8sFwnO4 6jr6R1RsnnG8yjWRHvDKybhmIz cdC9EFUuwBPdNWsvivBrCZbzte KpzkAvPua6IHW7yAcdXYFusfij GzQ6PQvaVJPqyswrNMj9WKsyBM EybPW2CVUrwPYwG9QfYXWeCT7r kel7AXZ8ETmzQPJvPwX9JTPtaR XdKKUkwFwtLGkab471FKR4IuEd AYAit3K9xlYzWeQtEQFbhFN6od I9UNEzGL5ntyyus3nrPWgxOReh EFKndtI6usM9MUUxqYYxD2NmbH 3uGPLdJW0lndbbu8smUWJ9MXsj YXJkXHBsYWluXGYxXGZzMjBcY2 YxIEEuIFBMRVVSQUwgRkxVSUQg OonYCCWuJ2dSVUkfIoZoLVVZXJ RBNP0MQAEFCfQnQ1CLMULWPV0L GhfwnUWgVR7pIcKZDLFFUBcBLV VQDYRTYSmMCvRWUlHZPK0WDCDS EqWVBJRSMALABWWuIF0VTMHWO6 4AMdkQWF9RGIRZRzIZPUEDVEkY OERTRwQyE5DHKT3LUOKoUGXeqy b6xUPabGmaJGSpS9JfYZ3raCYd DH2zwXW9KMfgmWIsj1B4TRmfvh I2ITDiJMEzgnEppa4eETFcpqZ2 lRNxP4XxzJUksN5lti0wYUegBV MvaCcsh4xoFdEnRLRtZBDrAGlf U6gdmElkuUFtK3H1kDHvXULhP7 UhkYSsiX7ieGmvUMAtMJOvpOMd VcHmUMGiqXqvNAFCLR3KQODaEU UltFCrgQqopV7hZLHdUGKEEs31 RJ3gXRFfCIzyJVGrlWbbf5tvYp KajW73aj1nxNKddqNmTORjAH1c R2Z1hGVeSxHNFjPiEnvaYQ8DZT GfFVGgnRRsCPuzY2moqRTldh43 UMIbCNLFCMToDT2jDaUgKQYtf2 1zOLVuREJdHCdblaPwaWcgTrt9 LOJma6p6fQCmOJjtrEQre2O8GB akzB3bIQRprhKos34cS8tvzjEx HYJGGH2qFMRnCIRonoAtiBSwBQ 7jsMGfTLVoewTap2nxqgyfiEAb nwCqIG1aZQVeFARlXGiscyOuxF dsJor7gM2eLVehhFLpv8Dhd5p6 vYHvfPytRv1eNW8wqf3awV6pZS ujI9MCRMStnk7lvTAoBNVio1Qo djOwlQ0sZO7xUUNtFMFumE4rnD 9yimHhtgWtB91kg6mgQLUcXMQp bsM9HsLkY2neoyOiRs1aEQHsTT rnJ24qh3ojZN3jPA2yjCywfbBf N3fjOSLytn4= [facility] Work Phone: Pathology report gross observation Narrative l6ffxPQaCFBcdOOVALUnAZVqCA 8mnQohoAd1nUqdDGYcvxJ1eSBj HQrcl6mlFXA3p1fpixTZHijeDU JbZjivDBHchpvkVgM5DXrpNBUf gtquRMf8OWxyTRUqgFL2HLNyrZ SmS1YyTQRjWU9jqgr0NLY1HZai XGPjApH6NLYnFIe7YIJbofC8Gy fyBOx5VSOxNAKqoLJpz0L6ZXym n3zxd4VtGEFpZZg1eE4Kd4qdYm ixG5rzlwYroSIbPwY6sFSqVSAq K53iJTTOO605XGlzx1PhzPWpUO d7SEmxARDlL7LoO8KvTHxpQpPy CCspRRLeDVNnANhtPGDpO4NKGR KjWkr2AFJ9MjZkJRu0ZXx9OXQT PHN5WAq2ZEd2WPq6WSe3JPuxjx thWQt6KCMcFLlhhDNoRE6pmQid ShrhyHqlh4ZaxOZgXCWvDRdmmD QgNTEwMDIgXFxkYiBPVlIgIiAy RGusSVN6UFSqEMc6HQqaD8ZDRA DlIQTfFzY4ISMrQcO6GVi4FSAR Gs0bBDF8FaT9CcI6WIA7GVCoVu BcXHQgMiBcXHNzIDMgXFxmbCBc VD8zfVkxWEKfUI2ZWKIiVKwcCX ujmmziNMEhLQKsWvEiQL8cLBwT VVJBTCBGTFVJRCBSSUdIVCBTSU RFLlxsdHJjaFxmMlxmczIyXHBh vqSFTvxsMCOsUH4EDKJsCSbkUB w4yeIkEJhkcyfoNTCdElLmITSp U70hf2CWv7NqST5XMIi8lzZepv VJIdbswlHhVOKkD4UzjqOjOXFj MCBtbCBccHJvdGVjdHtcZmllbG F0NYyoDhdndR0tbKPDVCWSXqwB UxksvyMyRY0UXRZMUoVRGR72Iu KsJLH7YNtdtHsuWuojhwIhuARu MjOVtO8qsXJlsuhbHrlscTV6FM iyLrwngG7wkDOVGRSEOwfOJxsh kbVwRP2FUYJMDL8XrLLjKoFktR S2HS39AGLrJJVqnBTpVSnkN875 YWBjIVjmTCy0qdFyBZlqhvqjHI CrPwQjTOljfi13DRW6q3gusZGj HDwlOxzodPZlblO2ELbNQAEXFW kMWtBiYK7bSIgHE1FHNEpTHewb MVZmAZbucMX7v4nkuASwn0x5BB xoWDQ7kHMkx8WhdMkwSwbcjWL8 CPwiMyznlW5hbORZXALDZcpSZi zsetOmEA1CWKCBSY1RtVZcPqF1 wAE7Lz99LNUlGTMihCOtRKgzM1 96PWUpLRioDNa6gbXtMDplrgqq SCKuAlPaMFBvbSosPGnlww46GT D5z0soiECqQUiqScpyiKLbvaG3 YRqQWNTJXFaRXeTqSE9kZTzFW2 ZLDIpMShesJMCaRKobvCK1h0zj rPYfc7v5TSvlXKY6bCqmmVh7TF AtLKzmp1guFMBiOResb6BhYNlN JGKNAU2GUV5seDN0FEuGRUCYZQ jjSBGsSVsstTC3a5mggKLux0x9 YByuBTY6bKcogSSarosybFRghZ hiBC9cNOgiteStWMIwIWN4qDAf OCVetW6gc8ThbvsaYAVjgFRuoE OixFjhMamirUR1OWqfPjxqaB8j pAFKQQMISsyWPxnkavVjEH5GXR LBErUAEC87PxW8ENO6PIr0eLsg RgmeafIooIBfCuFUoQ6hx0H6zE Y0NCSxJOvrn6akYRNeICgak1Mr QRjKNRZVAY7MHC7kxAO5YKpNVK BXKQrsGUB6LBn2mPJ6q9fovCTv u0v0QRbaLEU0sBpicCOjcyuycO JkfKyeJC7rBMsjidFpKJ9wPRRw jeEGQsjoDUVpOGLttVKPj5BuWX EPEtficJaaLgFhvMDzEwF9LYUe qISnKJK1XR2ajIupNNKnH5XdY1 KvkfZ8ZLHqwjLNKoigLFUuMS6C XGZzMjQgDQp9 [facility] Work Phone: Pathology report relevant history Narrative s6lkeWKwBUBmu0mmTLBbgLAgOj NwKgTdIqAgNno2FJIgwyP7Cxk9 PLLmODnbcR4pSNEtZHtpZ4wetd GevDMvMZSmCOm4dW1pdUdjdL4g EkKvUjNzXIJexUD4vENhKE0vtd FFB7JQNmBjAOWqabseYuEzYWAg k9SagjUqcb2zVLZ2gYTnZHIlyD V7FMRgzFXmzZF0rgRpZAEjZwNn hM8jk7rlQYPzlM== [facility] Work Phone: [facility] Work Phone: Renal function 2000 panelon 04-05-2025 Albumin BCP dye [Mass/Vol] 3.1 g/dL Low 3.4 - 5.0 g/dL [facility] Anion gap [Moles/Vol] 11 mmol/L 10 - 2 0 mmol/L [facility] Calcium [Mass/Vol] 9.4 mg/dL 8.6 - 10. 6 mg/dL [facility] Chloride [Moles/Vol] 97 mmol/L Low 98 - 10 7 mmol/L [facility] CO2 [Moles/Vol] 30 mmol/L 21 - 32 mmol/L [facility] Creatinine [Mass/Vol] 0.74 mg/dL 0.50 - 1.05 mg/dL [facility] eGFR - PINF [facility] Glucose [Mass/Vol] 204 mg/dL High 74 - 99 mg/dL [facility] Interpretation and review of laboratory results Abnormal [facility] Phosphate [Mass/Vol] 2.5 mg/dL 2.5 - 4 .9 mg/dL [facility] Potassium [Moles/Vol] 4.0 mmol/L 3.5 - 5.3 mmol/L [facility] Sodium [Moles/Vol] 134 mmol/L Low 136 - 145 mmol/L [facility] Urea nitrogen [Mass/Vol] 14 mg/dL 6 - 23 mg/dL [facility] Albumin BCP dye [Mass/Vol] 3.1 g/dL Low 3.4-5.0 [facility] Comment on above: Performed By: #### 2 4362-6 ####DERRICK Hall ([id number])[facility] ([facility])[address] [place] [address] Anion gap [Moles/Vol] 11 mmol/L Normal 10-20 [facility] Comment on above: Performed By: #### 2 4362-6 ####DERRICK Hall ([id number])[facility] ([facility])[address] [place] [address] Calcium [Mass/Vol] 9.4 mg/dL Normal 8.6-10.6 [facility] Comment on above: Performed By: #### 2 4362-6 ####DERRICK Hall ([id number])[facility] ([facility])[address] [place] [address] Chloride [Moles/Vol] 97 mmol/L Low 98-107 [facility] Comment on above: Performed By: #### 2 4362-6 ####DERRICK Hall ([id number])[facility] ([facility])[address] [place] [address] CO2 [Moles/Vol] 30 mmol/L Normal 21-32 [facility] Comment on above: Performed By: #### 2 4362-6 ####DERRICK Hall ([id number])[facility] ([facility])[address] [place] [address] Creatinine [Mass/Vol] 0.74 mg/dL Normal 0.50-1.05 [facility] Comment on above: Performed By: #### 2 4362-6 ####DERRICK BRAR L ([id number])[facility] ([facility])[address] [place] [address] Glomerular filtration rate >90 Normal >60 [facility] Comment on above: Result Comment: Calc ulations of estimated GFR are performed using the 2020 CKD-EPI Study Refit equation without the race variable for the IDMS-Traceable creatinine methods.https://jasn.asnjournals.org/content/early/ N.6059829105 Performed By: #### 2 4362-6 ####DERRICK BRAR L ([id number])[facility] ([facility])[address] [place] [address] Glucose [Mass/Vol] 204 mg/dL High 74-99 [facility] Comment on above: Performed By: #### 2 4362-6 ####DERRICK BRAR L ([id number])[facility] ([facility])[address] [place] [address] Phosphate [Mass/Vol] 2.5 mg/dL Normal 2.5-4.9 [facility] Comment on above: Performed By: #### 2 4362-6 ####DERRICK CHOUDHARYMOTZER L ([id number])[facility] ([facility])[address] [place] [address] Potassium [Moles/Vol] 4.0 mmol/L Normal 3.5-5.3 [facility] Comment on above: Performed By: #### 2 4362-6 ####DERRICK BRAR L ([id number])[facility] ([facility])[address] [place] [address] Sodium [Moles/Vol] 134 mmol/L Low 136-145 [facility] Comment on above: Performed By: #### 2 4362-6 ####DERRICK Hall ([id number])[facility] ([facility])[address] [place] [address] Urea nitrogen [Mass/Vol] 14 mg/dL Normal 6-23 [facility] Comment on above: Performed By: #### 2 4362-6 ####DERRICK Hall ([id number])[facility] ([facility])[address] [place] [address] Albumin BCP dye [Mass/Vol] 2.9 g/dL Low 3.4 - 5.0 g/dL [facility] Anion gap [Moles/Vol] 12 mmol/L 10 - 2 0 mmol/L [facility] Calcium [Mass/Vol] 9.1 mg/dL 8.6 - 10. 6 mg/dL [facility] Chloride [Moles/Vol] 99 mmol/L 98 - 10 7 mmol/L [facility] CO2 [Moles/Vol] 27 mmol/L 21 - 32 mmol/L [facility] Creatinine [Mass/Vol] 0.59 mg/dL 0.50 - 1.05 mg/dL [facility] eGFR - PINF [facility] Glucose [Mass/Vol] 200 mg/dL High 74 - 99 mg/dL [facility] Interpretation and review of laboratory results Abnormal [facility] Phosphate [Mass/Vol] 2.9 mg/dL 2.5 - 4 .9 mg/dL [facility] Potassium [Moles/Vol] 4.4 mmol/L 3.5 - 5.3 mmol/L [facility] Sodium [Moles/Vol] 134 mmol/L Low 136 - 145 mmol/L [facility] Urea nitrogen [Mass/Vol] 12 mg/dL 6 - 23 mg/dL [facility] Albumin BCP dye [Mass/Vol] 2.9 g/dL Low 3.4-5.0 [facility] Comment on above: Performed By: #### 2 4362-6 ####DERRICK SIMER L ([id number])[facility] ([facility])[address] [facility] [address] Anion gap [Moles/Vol] 12 mmol/L Normal 10-20 [facility] Comment on above: Performed By: #### 2 4362-6 ####DERRICK SIMER L ([id number])[facility] ([facility])[address] [place] [address] Calcium [Mass/Vol] 9.1 mg/dL Normal 8.6-10.6 [facility] Comment on above: Performed By: #### 2 4362-6 ####DERRICK BRAR L ([id number])[facility] ([facility])[address] [place] [address] Chloride [Moles/Vol] 99 mmol/L Normal 98-107 [facility] Comment on above: Performed By: #### 2 4362-6 ####DERRICK ALVESTZER L ([id number])[facility] ([facility])[address] [place] [address] CO2 [Moles/Vol] 27 mmol/L Normal 21-32 [facility] Comment on above: Performed By: #### 2 4362-6 ####DERRICK CHOUDHARYMOTZER L ([id number])[facility] ([facility])[address] [place] [address] Creatinine [Mass/Vol] 0.59 mg/dL Normal 0.50-1.05 [facility] Comment on above: Performed By: #### 2 4362-6 ####DERRICK CHOUDHARYMOTZER L ([id number])[facility] ([facility])[address] [place] [address] Glomerular filtration rate >90 Normal >60 [facility] Comment on above: Result Comment: Calc ulations of estimated GFR are performed using the 2020 CKD-EPI Study Refit equation without the race variable for the IDMS-Traceable creatinine methods.https://jasn.asnjournals.org/content// N.0456059034 Performed By: #### 2 4362-6 ####DERRICK Hall ([id number])[facility] ([facility])[address] [place] [address] Glucose [Mass/Vol] 200 mg/dL High 74-99 [facility] Comment on above: Performed By: #### 2 4362-6 ####DERRICK Hall ([id number])[facility] ([facility])[address] [place] [address] Phosphate [Mass/Vol] 2.9 mg/dL Normal 2.5-4.9 [facility] Comment on above: Performed By: #### 2 4362-6 ####DERRICK Hall ([id number])[facility] ([facility])[id number] [place] [address] Potassium [Moles/Vol] 4.4 mmol/L Normal 3.5-5.3 [facility] Comment on above: Performed By: #### 2 4362-6 ####DERRICK Hall ([id number])[facility] ([facility])[address] [place] [address] Sodium [Moles/Vol] 134 mmol/L Low 136-145 [facility] Comment on above: Performed By: #### 2 4362-6 ####DERRICK Hall ([id number])[facility] ([facility])[address] [place] [address] Urea nitrogen [Mass/Vol] 12 mg/dL Normal 6-23 [facility] Comment on above: Performed By: #### 2 4362-6 ####DERRICK Hall ([id number])[facility] ([facility])[address] [place] [address] XR CHEST 1 VIEWon 04-05-2025 XR CHEST 1 VIEW Normal [facility] XR Chest Single viewon 04-05 [facility]AL [facility] Work Phone: [facility] Work Phone: Radiology Study observation (narrative) [facility] Work Phone: CBC W Auto Differential pane l (Bld)on 04-04-2025 Basophils (Bld) [#/Vol] 0.03 10*3/uL [facility] Basophils/100 WBC (Bld) 0.4 % 0.0 - 2.0 % [facility] Eosinophils (Bld) [#/Vol] 0.21 10*3/uL [facility] Eosinophils/100 WBC (Bld) 2.8 % 0.0 - 6.0 % [facility] Erythrocyte distribution width (RBC) [Ratio] 13.0 % 11.5 - 14.5 % [facility] Hematocrit (Bld) [Volume fraction] 41.7 % 36.0 - 46.0 % [facility] Hemoglobin (Bld) [Mass/Vol] 12.7 g/dL 12.0 - 16.0 g/dL [facility] Immature granulocytes (Bld) [#/Vol] 0.03 10*3/uL [facility] Immature granulocytes/100 WBC (Bld) 0.4 % 0.0 - 0.9 % [facility] Interpretation and review of laboratory results Abnormal [facility] Lymphocytes (Bld) [#/Vol] 0.93 10*3/uL Low [facility] Lymphocytes/100 WBC (Bld) 12.3 % 13.0 - 44.0 % [facility] MCH (RBC) [Entitic mass] 30.8 pg 26.0 - 34.0 pg [facility] MCHC (RBC) [Mass/Vol] 30.5 g/dL Low 32.0 - 36.0 g/dL [facility] MCV (RBC) [Entitic vol] 101 fL High 80 - 100 fL [facility] Monocytes (Bld) [#/Vol] 0.62 10*3/uL [facility] Monocytes/100 WBC (Bld) 8.2 % 2.0 - 10.0 % [facility] Neutrophils (Bld) [#/Vol] 5.73 10*3/uL [facility] Neutrophils/100 WBC (Bld) 75.9 % 40.0 - 80.0 % [facility] Nucleated RBC/100 WBC (Bld) [Ratio] 0.0 % [facility] Platelets (Bld) [#/Vol] 197 10*3/uL [facility] RBC (Bld) [#/Vol] 4.12 10*6/uL [facility] WBC (Bld) [#/Vol] 7.6 10*3/uL [facility] Basophils (Bld) [#/Vol] 0.03 x10*3/uL Normal 0.00-0.10 [facility] Comment on above: Performed By: #### 5 7021-8 ####DERRICK Hall ([id number])[facility] ([facility])[id number] [place] [address] Basophils/100 WBC (Bld) 0.4 % Normal 0.0-2.0 [facility] Comment on above: Performed By: #### 5 7021-8 ####DERRICK Hall ([id number])[facility] ([facility])[id number] [place] [address] Eosinophils (Bld) [#/Vol] 0.21 x10*3/uL Normal 0.00-0.70 [facility] Comment on above: Performed By: #### 5 7021-8 ####DERRICK Hall ([id number])[facility] ([facility])[address] [place] [address] Eosinophils/100 WBC (Bld) 2.8 % Normal 0.0-6.0 [facility] Comment on above: Performed By: #### 5 7021-8 ####DERRICK Hall ([id number])[facility] ([facility])[id number] [place] [address] Erythrocyte distribution width (RBC) [Ratio] 13.0 % Normal 11.5-14.5 [facility] Comment on above: Performed By: #### 5 7021-8 ####DERRICK Hall ([id number])[facility] ([facility])[id number] [place] [address] Hematocrit (Bld) [Volume fraction] 41.7 % Normal 36.0-46.0 [facility] Comment on above: Performed By: #### 5 7021-8 ####DERRICK Hall ([id number])[facility] ([facility])[address] [place] [address] Hemoglobin (Bld) [Mass/Vol] 12.7 g/dL Normal 12.0-16.0 [facility] Comment on above: Performed By: #### 5 7021-8 ####DERRICK Hall ([id number])[facility] ([facility])[address] [place] [address] Immature granulocytes (Bld) [#/Vol] 0.03 x10*3/uL Normal 0.00-0.70 [facility] Comment on above: Performed By: #### 5 7021-8 ####DERRICK Hall ([id number])[facility] ([facility])[address] [place] [address] Immature granulocytes/100 WBC (Bld) 0.4 % Normal 0.0-0.9 [facility] [facility] Comment on above: Result Comment: Arlen ture Granulocyte Count (IG) includes promyelocytes, myelocytes and metamyelocytes but does not include bands. Percent differential counts (%) should be interpreted in the context of the absolute cell counts (cells/UL). Performed By: #### 5 7021-8 ####DERRICK Hall ([id number])[facility] ([facility])[address] [place] [address] Lymphocytes (Bld) [#/Vol] 0.93 x10*3/uL Low 1.20-4.80 [facility] Comment on above: Performed By: #### 5 7021-8 ####DERRICK Hall ([id number])[facility] ([facility])[address] [place] [address] Lymphocytes/100 WBC (Bld) 12.3 % Normal 13.0-44.0 [facility] Comment on above: Performed By: #### 5 7021-8 ####DERRICK Hall ([id number])[facility] ([facility])[address] [place] [address] MCH (RBC) [Entitic mass] 30.8 pg Normal 26.0-34.0 [facility] Comment on above: Performed By: #### 5 7021-8 ####DERRICK Hall ([id number])[facility] ([facility])[address] [place] [address] MCHC (RBC) [Mass/Vol] 30.5 g/dL Low 32.0-36.0 [facility] Comment on above: Performed By: #### 5 7021-8 ####DERRICK Hall ([id number])[facility] ([facility])[address] [place] [address] MCV (RBC) [Entitic vol] 101 fL High 80-100 [facility] Comment on above: Performed By: #### 5 7021-8 ####DERRICK Hall ([id number])[facility] ([facility])[address] [place] [address] Monocytes (Bld) [#/Vol] 0.62 x10*3/uL Normal 0.10-1.00 [facility] Comment on above: Performed By: #### 5 7021-8 ####DERRICK Hall ([id number])[facility] ([facility])[address] [place] [address] Monocytes/100 WBC (Bld) 8.2 % Normal 2.0-10.0 [facility] Comment on above: Performed By: #### 5 7021-8 ####DERRICK BRAR L ([id number])[facility] ([facility])[address] [place] [address] Neutrophils (Bld) [#/Vol] 5.73 x10*3/uL Normal 1.20-7.70 [facility] Comment on above: Result Comment: Perc ent differential counts (%) should be interpreted in the context of the absolute cell counts (cells/uL). Performed By: #### 5 7021-8 ####DERRICK Hall ([id number])[facility] ([facility])[address] [place] [address] Neutrophils/100 WBC (Bld) 75.9 % Normal 40.0-80.0 [facility] Comment on above: Performed By: #### 5 7021-8 ####DERRICK Hall ([id number])[facility] ([facility])[address] [place] [address] Nucleated RBC/100 WBC (Bld) [Ratio] 0.0 /100 WBCs Normal 0.0-0.0 [facility] Comment on above: Performed By: #### 5 7021-8 ####DERRICK Hall ([id number])[facility] ([facility])[address] [place] [address] Platelets (Bld) [#/Vol] 197 x10*3/uL Normal 150-450 [facility] Comment on above: Performed By: #### 5 7021-8 ####DERRICK Hall ([id number])[facility] ([facility])[address] [place] [address] RBC (Bld) [#/Vol] 4.12 x10*6/uL Normal 4.00-5.20 [facility] Comment on above: Performed By: #### 5 7021-8 ####DERRICK Hall ([id number])[facility] ([facility])[address] [place] [address] WBC (Bld) [#/Vol] 7.6 x10*3/uL Normal 4.4-11.3 [facility] Comment on above: Performed By: #### 5 7021-8 ####DERRICK Hall ([id number])[facility] ([facility])[address] [place] [address] Glucose Test strip manual (B ld) [Mass/Vol]on 04-04-2025 Glucose [Mass/Vol] 222 mg/dL High 74 - 99 mg/dL [facility] Interpretation and review of laboratory results Abnormal [facility] Glucose [Mass/Vol] 222 mg/dL High 74-99 [facility] Comment on above: Performed By: #### 2 341-6 ####DERRICK Hall ([id number])[facility] ([facility])[address] [place] [address] Glucose [Mass/Vol] 203 mg/dL High 74 - 99 mg/dL [facility] Interpretation and review of laboratory results Abnormal [facility] Glucose [Mass/Vol] 203 mg/dL High 74-99 [facility] Comment on above: Performed By: #### 2 341-6 ####DERRICK Hall ([id number])[facility] ([facility])[address] [place] [address] Glucose [Mass/Vol] 158 mg/dL High 74 - 99 mg/dL [facility] Interpretation and review of laboratory results Abnormal [facility] Glucose [Mass/Vol] 158 mg/dL High 74-99 [facility] Comment on above: Performed By: #### 2 341-6 ####DERRICK Hall ([id number])[facility] ([facility])[address] [place] [address] Magnesiumon 04-04-2025 Magnesium [Mass/Vol] 2.20 mg/dL 1.60 - 2.40 mg/dL [facility] Magnesium [Mass/Vol] 2.20 mg/dL Normal 1.60-2.40 [facility] Comment on above: Performed By: #### 1 9123-9 ####DERRICK Hall ([id number])[facility] ([facility])[address] [place] [address] Magnesium [Mass/Vol]on 04-04 Interpretation and review of laboratory results Normal [facility] No Panel Informationon 04-04 [facility] Renal function 2000 panelon 04-04-2025 Albumin BCP dye [Mass/Vol] 3.1 g/dL Low 3.4 - 5.0 g/dL [facility] Anion gap [Moles/Vol] 10 mmol/L 10 - 2 0 mmol/L [facility] Calcium [Mass/Vol] 9.4 mg/dL 8.6 - 10. 6 mg/dL [facility] Chloride [Moles/Vol] 97 mmol/L Low 98 - 10 7 mmol/L [facility] CO2 [Moles/Vol] 30 mmol/L 21 - 32 mmol/L [facility] Creatinine [Mass/Vol] 0.69 mg/dL 0.50 - 1.05 mg/dL [facility] eGFR - PINF [facility] Glucose [Mass/Vol] 221 mg/dL High 74 - 99 mg/dL [facility] Interpretation and review of laboratory results Abnormal [facility] Phosphate [Mass/Vol] 2.9 mg/dL 2.5 - 4 .9 mg/dL [facility] Potassium [Moles/Vol] 4.1 mmol/L 3.5 - 5.3 mmol/L [facility] Sodium [Moles/Vol] 133 mmol/L Low 136 - 145 mmol/L [facility] Urea nitrogen [Mass/Vol] 13 mg/dL 6 - 23 mg/dL [facility] Albumin BCP dye [Mass/Vol] 3.1 g/dL Low 3.4-5.0 [facility] Comment on above: Performed By: #### 2 4362-6 ####DERRICK Hall ([id number])[facility] ([facility])[address] [place] [address] Anion gap [Moles/Vol] 10 mmol/L Normal 10-20 [facility] Comment on above: Performed By: #### 2 4362-6 ####DERRICK Hall ([id number])[facility] ([facility])[address] [place] [address] Calcium [Mass/Vol] 9.4 mg/dL Normal 8.6-10.6 [facility] Comment on above: Performed By: #### 2 4362-6 ####DERRICK Hall ([id number])[facility] ([facility])[address] [place] [address] Chloride [Moles/Vol] 97 mmol/L Low 98-107 [facility] Comment on above: Performed By: #### 2 4362-6 ####DERRICK BRAR L ([id number])[facility] ([facility])[address] [place] [address] CO2 [Moles/Vol] 30 mmol/L Normal 21-32 [facility] Comment on above: Performed By: #### 2 4362-6 ####DERRICK BRAR L ([id number])[facility] ([facility])[address] [place] [address] Creatinine [Mass/Vol] 0.69 mg/dL Normal 0.50-1.05 [facility] Comment on above: Performed By: #### 2 4362-6 ####DERRICK Hall ([id number])[facility] ([facility])[address] [place] [address] Glomerular filtration rate >90 Normal >60 [facility] Comment on above: Result Comment: Calc ulations of estimated GFR are performed using the 2020 CKD-EPI Study Refit equation without the race variable for the IDMS-Traceable creatinine methods.https://jasn.asnjournals.org/content/early/ N.1380184929 Performed By: #### 2 4362-6 ####DERRICK Hall ([id number])[facility] ([facility])[address] [place] [address] Glucose [Mass/Vol] 221 mg/dL High 74-99 [facility] Comment on above: Performed By: #### 2 4362-6 ####DERRICK BRAR L ([id number])[facility] ([facility])[address] [place] [address] Phosphate [Mass/Vol] 2.9 mg/dL Normal 2.5-4.9 [facility] Comment on above: Performed By: #### 2 4362-6 ####DERRICK Hall ([id number])[facility] ([facility])[address] [place] [address] Potassium [Moles/Vol] 4.1 mmol/L Normal 3.5-5.3 [facility] Comment on above: Performed By: #### 2 4362-6 ####DERRICK Hall ([id number])[facility] ([facility])[address] [place] [address] Sodium [Moles/Vol] 133 mmol/L Low 136-145 [facility] Comment on above: Performed By: #### 2 4362-6 ####DERRICK Hall ([id number])[facility] ([facility])[address] [place] [address] Urea nitrogen [Mass/Vol] 13 mg/dL Normal 6-23 [facility] Comment on above: Performed By: #### 2 4362-6 ####DERRICK Hall ([id number])[facility] ([facility])[address] [place] [address] Albumin BCP dye [Mass/Vol] 3.0 g/dL Low 3.4 - 5.0 g/dL [facility] Anion gap [Moles/Vol] 12 mmol/L 10 - 2 0 mmol/L [facility] Calcium [Mass/Vol] 9.3 mg/dL 8.6 - 10. 6 mg/dL [facility] Chloride [Moles/Vol] 100 mmol/L 98 - 10 7 mmol/L [facility] CO2 [Moles/Vol] 27 mmol/L 21 - 32 mmol/L [facility] Creatinine [Mass/Vol] 0.59 mg/dL 0.50 - 1.05 mg/dL [facility] eGFR - PINF [facility] Glucose [Mass/Vol] 186 mg/dL High 74 - 99 mg/dL [facility] Interpretation and review of laboratory results Abnormal [facility] Phosphate [Mass/Vol] 3.6 mg/dL 2.5 - 4 .9 mg/dL [facility] Potassium [Moles/Vol] 4.5 mmol/L 3.5 - 5.3 mmol/L [facility] Sodium [Moles/Vol] 134 mmol/L Low 136 - 145 mmol/L [facility] Urea nitrogen [Mass/Vol] 12 mg/dL 6 - 23 mg/dL [facility] Albumin BCP dye [Mass/Vol] 3.0 g/dL Low 3.4-5.0 [facility] Comment on above: Performed By: #### 2 4362-6 ####DERRICK Hall ([id number])[facility] ([facility])[address] [place] [address] Anion gap [Moles/Vol] 12 mmol/L Normal 10-20 [facility] Comment on above: Performed By: #### 2 4362-6 ####DERRICK Hall ([id number])[facility] ([facility])[address] [place] [address] Calcium [Mass/Vol] 9.3 mg/dL Normal 8.6-10.6 [facility] Comment on above: Performed By: #### 2 4362-6 ####DERRICK Hall ([id number])[facility] ([facility])[address] [place] [address] Chloride [Moles/Vol] 100 mmol/L Normal 98-107 [facility] Comment on above: Performed By: #### 2 4362-6 ####DERRICK Hall ([id number])[facility] ([facility])[address] [place] [address] CO2 [Moles/Vol] 27 mmol/L Normal 21-32 [facility] Comment on above: Performed By: #### 2 4362-6 ####DERRICK Hall ([id number])[facility] ([facility])[address] [place] [address] Creatinine [Mass/Vol] 0.59 mg/dL Normal 0.50-1.05 [facility] Comment on above: Performed By: #### 2 4362-6 ####DERRICK Hall ([id number])[facility] ([facility])[address] [place] [address] Glomerular filtration rate >90 Normal >60 [facility] Comment on above: Result Comment: Calc ulations of estimated GFR are performed using the 2020 CKD-EPI Study Refit equation without the race variable for the IDMS-Traceable creatinine methods.https://jasn.asnjournals.org/content// N.1675849759 Performed By: #### 2 4362-6 ####DERRICK Hall ([id number])[facility] ([facility])[address] [place] [address] Glucose [Mass/Vol] 186 mg/dL High 74-99 [facility] Comment on above: Performed By: #### 2 4362-6 ####DERRICK Hall ([id number])[facility] ([facility])[address] [place] [address] Phosphate [Mass/Vol] 3.6 mg/dL Normal 2.5-4.9 [facility] Comment on above: Performed By: #### 2 4362-6 ####DERRICK Hall ([id number])[facility] ([facility])[address] [place] [address] Potassium [Moles/Vol] 4.5 mmol/L Normal 3.5-5.3 [facility] Comment on above: Performed By: #### 2 4362-6 ####DERRICK BRAR L ([id number])[facility] ([facility])[address] [place] [address] Sodium [Moles/Vol] 134 mmol/L Low 136-145 [facility] Comment on above: Performed By: #### 2 4362-6 ####DERRICK Hall ([id number])[facility] ([facility])[address] [place] [address] Urea nitrogen [Mass/Vol] 12 mg/dL Normal 6-23 [facility] Comment on above: Performed By: #### 2 4362-6 ####DERRICK Hall ([id number])[facility] ([facility])[address] [place] [address] Staphylococcus aureus.methic illin resistant isolateon 04-04-2025 MRSA isol Org specific cx Ql (Nose) Normal [facility] Comment on above: Performed By: #### 5 2969-3 ####DERRICK Hall ([id number])[facility] ([facility])[address] [place] [address] XR CHEST 1 VIEWon 04-04-2025 XR CHEST 1 VIEW Normal [facility] XR Chest Single viewon 04-04 [facility] MM[facility]AL [facility] MMODAL [facility] Work Phone: [facility] Work Phone: Radiology Study observation (narrative) [facility] Work Phone: Bacteria identified Cx Nom ( Body fld)Ordered By: Gissel Taylor on 04-03-2025 Microscopic observation Gram stain Nom (Unsp spec) (2+) Few Polymorphonuclear leukocytes [facility] Microscopic observation Gram stain Nom (Unsp spec) No organisms seen [facility] CBC W Auto Differential pane l (Bld)on 04-03-2025 Basophils (Bld) [#/Vol] 0.03 10*3/uL [facility] Basophils/100 WBC (Bld) 0.3 % 0.0 - 2.0 % [facility] Eosinophils (Bld) [#/Vol] 0.27 10*3/uL [facility] Eosinophils/100 WBC (Bld) 2.7 % 0.0 - 6.0 % [facility] Erythrocyte distribution width (RBC) [Ratio] 13.1 % 11.5 - 14.5 % [facility] Hematocrit (Bld) [Volume fraction] 41.8 % 36.0 - 46.0 % [facility] Hemoglobin (Bld) [Mass/Vol] 12.8 g/dL 12.0 - 16.0 g/dL [facility] Immature granulocytes (Bld) [#/Vol] 0.06 10*3/uL [facility] Immature granulocytes/100 WBC (Bld) 0.6 % 0.0 - 0.9 % [facility] Interpretation and review of laboratory results Abnormal [facility] Lymphocytes (Bld) [#/Vol] 1.04 10*3/uL Low [facility] Lymphocytes/100 WBC (Bld) 10.5 % 13.0 - 44.0 % [facility] MCH (RBC) [Entitic mass] 30.6 pg 26.0 - 34.0 pg [facility] MCHC (RBC) [Mass/Vol] 30.6 g/dL Low 32.0 - 36.0 g/dL [facility] MCV (RBC) [Entitic vol] 100 fL 80 - 100 fL [facility] Monocytes (Bld) [#/Vol] 0.76 10*3/uL [facility] Monocytes/100 WBC (Bld) 7.7 % 2.0 - 10.0 % [facility] Neutrophils (Bld) [#/Vol] 7.75 10*3/uL High [facility] Neutrophils/100 WBC (Bld) 78.2 % 40.0 - 80.0 % [facility] Nucleated RBC/100 WBC (Bld) [Ratio] 0.0 % [facility] Platelets (Bld) [#/Vol] 182 10*3/uL [facility] RBC (Bld) [#/Vol] 4.18 10*6/uL [facility] WBC (Bld) [#/Vol] 9.9 10*3/uL [facility] Basophils (Bld) [#/Vol] 0.03 x10*3/uL Normal 0.00-0.10 [facility] Comment on above: Performed By: #### 5 7021-8 ####DERRICK Hall ([id number])[facility] ([facility])[address] [place] [address] Basophils/100 WBC (Bld) 0.3 % Normal 0.0-2.0 [facility] Comment on above: Performed By: #### 5 7021-8 ####DERRICK Hall ([id number])[facility] ([facility])[address] [place] [address] Eosinophils (Bld) [#/Vol] 0.27 x10*3/uL Normal 0.00-0.70 [facility] Comment on above: Performed By: #### 5 7021-8 ####DERRICK Hall ([id number])[facility] ([facility])[address] [place] [address] Eosinophils/100 WBC (Bld) 2.7 % Normal 0.0-6.0 [facility] Comment on above: Performed By: #### 5 7021-8 ####DERRICK Hall ([id number])[facility] ([facility])[address] [place] [address] Erythrocyte distribution width (RBC) [Ratio] 13.1 % Normal 11.5-14.5 [facility] Comment on above: Performed By: #### 5 7021-8 ####DERRICK Hall ([id number])[facility] ([facility])[address] [place] [address] Hematocrit (Bld) [Volume fraction] 41.8 % Normal 36.0-46.0 [facility] Comment on above: Performed By: #### 5 7021-8 ####DERRICK Hall ([id number])[facility] ([facility])[address] [place] [address] Hemoglobin (Bld) [Mass/Vol] 12.8 g/dL Normal 12.0-16.0 [facility] Comment on above: Performed By: #### 5 7021-8 ####DERRICK Hall ([id number])[facility] ([facility])[address] [place] [address] Immature granulocytes (Bld) [#/Vol] 0.06 x10*3/uL Normal 0.00-0.70 [facility] Comment on above: Performed By: #### 5 7021-8 ####DERRICK Hall ([id number])[facility] ([facility])[address] [place] [address] Immature granulocytes/100 WBC (Bld) 0.6 % Normal 0.0-0.9 [facility] Comment on above: Result Comment: Arlen ture Granulocyte Count (IG) includes promyelocytes, myelocytes and metamyelocytes but does not include bands. Percent differential counts (%) should be interpreted in the context of the absolute cell counts (cells/UL). Performed By: #### 5 7021-8 ####DERRICK Hall ([id number])[facility] ([facility])[address] [place] [address] Lymphocytes (Bld) [#/Vol] 1.04 x10*3/uL Low 1.20-4.80 [facility] Comment on above: Performed By: #### 5 7021-8 ####DERRICK Hall ([id number])[facility] ([facility])[address] [place] [address] Lymphocytes/100 WBC (Bld) 10.5 % Normal 13.0-44.0 [facility] Comment on above: Performed By: #### 5 7021-8 ####DERRICK Hall ([id number])[facility] ([facility])[address] [place] [address] MCH (RBC) [Entitic mass] 30.6 pg Normal 26.0-34.0 [facility] Comment on above: Performed By: #### 5 7021-8 ####DERRICK Hall ([id number])[facility] ([facility])[address] [place] [address] MCHC (RBC) [Mass/Vol] 30.6 g/dL Low 32.0-36.0 [facility] Comment on above: Performed By: #### 5 7021-8 ####DERRICK Hall ([id number])[facility] ([facility])[address] [place] [address] MCV (RBC) [Entitic vol] 100 fL Normal 80-100 [facility] Comment on above: Performed By: #### 5 7021-8 ####DERRICK Hall ([id number])[facility] ([facility])[address] [place] [address] Monocytes (Bld) [#/Vol] 0.76 x10*3/uL Normal 0.10-1.00 [facility] Comment on above: Performed By: #### 5 7021-8 ####DERRICK Hall ([id number])[facility] ([facility])[address] [place] [address] Monocytes/100 WBC (Bld) 7.7 % Normal 2.0-10.0 [facility] Comment on above: Performed By: #### 5 7021-8 ####DERRICK Hall ([id number])[facility] ([facility])[address] [place] [address] Neutrophils (Bld) [#/Vol] 7.75 x10*3/uL High 1.20-7.70 [facility] Comment on above: Result Comment: Perc ent differential counts (%) should be interpreted in the context of the absolute cell counts (cells/uL). Performed By: #### 5 7021-8 ####DERRICK Hall ([id number])[facility] ([facility])[address] [place] [address] Neutrophils/100 WBC (Bld) 78.2 % Normal 40.0-80.0 [facility] Comment on above: Performed By: #### 5 7021-8 ####DERRICK Hall ([id number])[facility] ([facility])[address] [place] [address] Nucleated RBC/100 WBC (Bld) [Ratio] 0.0 /100 WBCs Normal 0.0-0.0 [facility] Comment on above: Performed By: #### 5 7021-8 ####DERRICK Hall ([id number])[facility] ([facility])[address] [place] [address] Platelets (Bld) [#/Vol] 182 x10*3/uL Normal 150-450 [facility] Comment on above: Performed By: #### 5 7021-8 ####DERRICK Hall ([id number])[facility] ([facility])[address] [place] [address] RBC (Bld) [#/Vol] 4.18 x10*6/uL Normal 4.00-5.20 [facility] Comment on above: Performed By: #### 5 7021-8 ####DERRICK Hall ([id number])[facility] ([facility])[address] [place] [address] WBC (Bld) [#/Vol] 9.9 x10*3/uL Normal 4.4-11.3 [facility] Comment on above: Performed By: #### 5 7021-8 ####DERRICK Hall ([id number])[facility] ([facility])[address] [place] [address]161 Glucose Test strip manual (B ld) [Mass/Vol]on 04-03-2025 Glucose [Mass/Vol] 227 mg/dL High 74 - 99 mg/dL [facility] Interpretation and review of laboratory results Abnormal [facility] Glucose [Mass/Vol] 227 mg/dL High 74-99 [facility] Comment on above: Performed By: #### 2 341-6 ####DERRICK Hall ([id number])[facility] ([facility])[address] [place] [address] Glucose [Mass/Vol] 168 mg/dL High 74 - 99 mg/dL [facility] Interpretation and review of laboratory results Abnormal [facility] Glucose [Mass/Vol] 168 mg/dL High 74-99 [facility] Comment on above: Performed By: #### 2 341-6 ####DERRICK Hall ([id number])[facility] ([facility])[address] [place] [address] Glucose [Mass/Vol] 226 mg/dL High 74 - 99 mg/dL [facility] Interpretation and review of laboratory results Abnormal [facility] Glucose [Mass/Vol] 226 mg/dL High 74-99 [facility] Comment on above: Performed By: #### 2 341-6 ####DERRICK Hall ([id number])[facility] ([facility])[address] [place] [address] Glucose [Mass/Vol] 178 mg/dL High 74 - 99 mg/dL [facility] Interpretation and review of laboratory results Abnormal [facility] Glucose [Mass/Vol] 178 mg/dL High 74-99 [facility] Comment on above: Performed By: #### 2 341-6 ####DERRICK Hall ([id number])[facility] ([facility])[id number] [place] [address]53 Magnesiumon 04-03-2025 Magnesium [Mass/Vol] 1.98 mg/dL 1.60 - 2.40 mg/dL [facility] Magnesium [Mass/Vol] 1.98 mg/dL Normal 1.60-2.40 [facility] Comment on above: Performed By: #### 1 9123-9 ####DERRICK Hall ([id number])[facility] ([facility])[id number] [place] [address] 06791 Magnesium [Mass/Vol]on 04-03 Interpretation and review of laboratory results Normal [facility] No Panel Informationon 04-03 [facility] Renal function 2000 panelon 04-03-2025 Albumin BCP dye [Mass/Vol] 3.2 g/dL Low 3.4 - 5.0 g/dL [facility] Anion gap [Moles/Vol] 14 mmol/L 10 - 2 0 mmol/L [facility] Calcium [Mass/Vol] 9.4 mg/dL 8.6 - 10. 6 mg/dL [facility] Chloride [Moles/Vol] 96 mmol/L Low 98 - 10 7 mmol/L [facility] CO2 [Moles/Vol] 28 mmol/L 21 - 32 mmol/L [facility] Creatinine [Mass/Vol] 0.57 mg/dL 0.50 - 1.05 mg/dL [facility] eGFR - PINF [facility] Glucose [Mass/Vol] 170 mg/dL High 74 - 99 mg/dL [facility] Interpretation and review of laboratory results Abnormal [facility] Phosphate [Mass/Vol] 2.8 mg/dL 2.5 - 4 .9 mg/dL [facility] Potassium [Moles/Vol] 3.9 mmol/L 3.5 - 5.3 mmol/L [facility] Sodium [Moles/Vol] 134 mmol/L Low 136 - 145 mmol/L [facility] Urea nitrogen [Mass/Vol] 13 mg/dL 6 - 23 mg/dL [facility] Albumin BCP dye [Mass/Vol] 3.2 g/dL Low 3.4-5.0 [facility] Comment on above: Performed By: #### 2 4362-6 ####DERRICK Hall ([id number])[facility] ([facility])[id number] [place] [address] 07567 Anion gap [Moles/Vol] 14 mmol/L Normal 10-20 [facility] Comment on above: Performed By: #### 2 4362-6 ####DERRICK Hall ([id number])[facility] ([facility])[id number] [place] [address] 87669 Calcium [Mass/Vol] 9.4 mg/dL Normal 8.6-10.6 [facility] Comment on above: Performed By: #### 2 4362-6 ####DERRICK Hall ([id number])[facility] ([facility])[address] [place] [address]022 Chloride [Moles/Vol] 96 mmol/L Low 98-107 [facility] Comment on above: Performed By: #### 2 4362-6 ####DERRICK Hall ([id number])[facility] ([facility])[address] [place] [address] 02561 CO2 [Moles/Vol] 28 mmol/L Normal 21-32 [facility] Comment on above: Performed By: #### 2 4362-6 ####DERRICK Hall ([id number])[facility] ([facility])[address] [place] [address] Creatinine [Mass/Vol] 0.57 mg/dL Normal 0.50-1.05 [facility] Comment on above: Performed By: #### 2 4362-6 ####DERRICK Hall ([id number])[facility] ([facility])[address] [place] [address] Glomerular filtration rate >90 Normal >60 [facility] Comment on above: Result Comment: Calc ulations of estimated GFR are performed using the 2020 CKD-EPI Study Refit equation without the race variable for the IDMS-Traceable creatinine methods.https://jasn.asnjournals.org/content/early/ N.8089122793 Performed By: #### 2 4362-6 ####DERRICK Hall ([id number])[facility] ([facility])[address] [place] [address] Glucose [Mass/Vol] 170 mg/dL High 74-99 [facility] Comment on above: Performed By: #### 2 4362-6 ####DERRICK Hall ([id number])[facility] ([facility])[address] [place] [address] Phosphate [Mass/Vol] 2.8 mg/dL Normal 2.5-4.9 [facility] Comment on above: Performed By: #### 2 4362-6 ####DERRICK Hall ([id number])[facility] ([facility])[address] [place] [address] Potassium [Moles/Vol] 3.9 mmol/L Normal 3.5-5.3 [facility] Comment on above: Performed By: #### 2 4362-6 ####DERRICK Hall ([id number])[facility] ([facility])[address] [place] [address] Sodium [Moles/Vol] 134 mmol/L Low 136-145 [facility] Comment on above: Performed By: #### 2 4362-6 ####DERRICK Hall ([id number])[facility] ([facility])[address] [place] [address] Urea nitrogen [Mass/Vol] 13 mg/dL Normal 6-23 [facility] Comment on above: Performed By: #### 2 4362-6 ####DERRICK Hall ([id number])[facility] ([facility])[id number] [place] [address] 96340 Albumin BCP dye [Mass/Vol] 2.9 g/dL Low 3.4 - 5.0 g/dL [facility] Anion gap [Moles/Vol] 11 mmol/L 10 - 2 0 mmol/L [facility] Calcium [Mass/Vol] 9.1 mg/dL 8.6 - 10. 6 mg/dL [facility] Chloride [Moles/Vol] 100 mmol/L 98 - 10 7 mmol/L [facility] CO2 [Moles/Vol] 28 mmol/L 21 - 32 mmol/L [facility] Creatinine [Mass/Vol] 0.57 mg/dL 0.50 - 1.05 mg/dL [facility] eGFR - PINF [facility] Glucose [Mass/Vol] 173 mg/dL High 74 - 99 mg/dL [facility] Interpretation and review of laboratory results Abnormal [facility] Phosphate [Mass/Vol] 3.1 mg/dL 2.5 - 4 .9 mg/dL [facility] Potassium [Moles/Vol] 4.2 mmol/L 3.5 - 5.3 mmol/L [facility] Sodium [Moles/Vol] 135 mmol/L Low 136 - 145 mmol/L [facility] Urea nitrogen [Mass/Vol] 12 mg/dL 6 - 23 mg/dL [facility] Albumin BCP dye [Mass/Vol] 2.9 g/dL Low 3.4-5.0 [facility] Comment on above: Performed By: #### 2 4362-6 ####DERRICK Hall ([id number])[facility] ([facility])[address] [place] [address] Anion gap [Moles/Vol] 11 mmol/L Normal 10-20 [facility] Comment on above: Performed By: #### 2 4362-6 ####DERRICK BRAR L ([id number])[facility] ([facility])[address] [place] [address] Calcium [Mass/Vol] 9.1 mg/dL Normal 8.6-10.6 [facility] Comment on above: Performed By: #### 2 4362-6 ####DERRICK BRAR L ([id number])[facility] ([facility])[address] [place] [address] Chloride [Moles/Vol] 100 mmol/L Normal 98-107 [facility] Comment on above: Performed By: #### 2 4362-6 ####DERRICK BRAR L ([id number])[facility] ([facility])[address] [place] [address] CO2 [Moles/Vol] 28 mmol/L Normal 21-32 [facility] Comment on above: Performed By: #### 2 4362-6 ####DERRICK BRAR L ([id number])[facility] ([facility])[address] [place] [address] Creatinine [Mass/Vol] 0.57 mg/dL Normal 0.50-1.05 [facility] Comment on above: Performed By: #### 2 4362-6 ####DERRICK BRAR L ([id number])[facility] ([facility])[address] [place] [address] Glomerular filtration rate >90 Normal >60 [facility] Comment on above: Result Comment: Calc ulations of estimated GFR are performed using the 2020 CKD-EPI Study Refit equation without the race variable for the IDMS-Traceable creatinine methods.https://jasn.asnjournals.org/content/early/ N.5872693587 Performed By: #### 2 4362-6 ####DERRICK Hall ([id number])[facility] ([facility])[address] [place] [address] Glucose [Mass/Vol] 173 mg/dL High 74-99 [facility] Comment on above: Performed By: #### 2 4362-6 ####DERRICK Hall ([id number])[facility] ([facility])[address] [place] [address] Phosphate [Mass/Vol] 3.1 mg/dL Normal 2.5-4.9 [facility] Comment on above: Performed By: #### 2 4362-6 ####DERRICK Hall ([id number])[facility] ([facility])[address] [place] [address] Potassium [Moles/Vol] 4.2 mmol/L Normal 3.5-5.3 [facility] Comment on above: Performed By: #### 2 4362-6 ####DERRICK Hall ([id number])[facility] ([facility])[address] [place] [address] Sodium [Moles/Vol] 135 mmol/L Low 136-145 [facility] Comment on above: Performed By: #### 2 4362-6 ####DERRICK Hall ([id number])[facility] ([facility])[address] [place] [address] Urea nitrogen [Mass/Vol] 12 mg/dL Normal 6-23 [facility] Comment on above: Performed By: #### 2 4362-6 ####DERRICK Hall ([id number])[facility] ([facility])[address] [place] [address] Sterile Fluid Culture/SmearO rdered By: Gissel Taylor on 04-03-2025 Bacteria identified Cx Nom (Body fld) No growth aerobically and anaerobically [facility] XR CHEST 1 VIEWon 04-03-2025 XR CHEST 1 VIEW Normal [facility] XR Chest Single viewon 04-03 [facility] MMODAL [facility] MMODAL [facility] Work Phone: [facility] Work Phone: Radiology Study observation (narrative) [facility] Work Phone: CBC W Auto Differential pane l (Bld)on 04-02-2025 Basophils (Bld) [#/Vol] 0.03 10*3/uL [facility] Basophils/100 WBC (Bld) 0.3 % 0.0 - 2.0 % [facility] Eosinophils (Bld) [#/Vol] 0.23 10*3/uL [facility] Eosinophils/100 WBC (Bld) 2.5 % 0.0 - 6.0 % [facility] Erythrocyte distribution width (RBC) [Ratio] 13.2 % 11.5 - 14.5 % [facility] Hematocrit (Bld) [Volume fraction] 41.5 % 36.0 - 46.0 % [facility] Hemoglobin (Bld) [Mass/Vol] 13.1 g/dL 12.0 - 16.0 g/dL [facility] Immature granulocytes (Bld) [#/Vol] 0.06 10*3/uL [facility] Immature granulocytes/100 WBC (Bld) 0.6 % 0.0 - 0.9 % [facility] Interpretation and review of laboratory results Abnormal [facility] Lymphocytes (Bld) [#/Vol] 1.06 10*3/uL Low [facility] Lymphocytes/100 WBC (Bld) 11.4 % 13.0 - 44.0 % [facility] MCH (RBC) [Entitic mass] 31.3 pg 26.0 - 34.0 pg [facility] MCHC (RBC) [Mass/Vol] 31.6 g/dL Low 32.0 - 36.0 g/dL [facility] MCV (RBC) [Entitic vol] 99 fL 80 - 100 fL [facility] Monocytes (Bld) [#/Vol] 0.72 10*3/uL [facility] Monocytes/100 WBC (Bld) 7.8 % 2.0 - 10.0 % [facility] Neutrophils (Bld) [#/Vol] 7.18 10*3/uL [facility] Neutrophils/100 WBC (Bld) 77.4 % 40.0 - 80.0 % [facility] Nucleated RBC/100 WBC (Bld) [Ratio] 0.0 % [facility] Platelets (Bld) [#/Vol] 188 10*3/uL [facility] RBC (Bld) [#/Vol] 4.18 10*6/uL [facility] WBC (Bld) [#/Vol] 9.3 10*3/uL [facility] Basophils (Bld) [#/Vol] 0.03 x10*3/uL Normal 0.00-0.10 [facility] Comment on above: Performed By: #### 5 7021-8 ####DERRICK Hall ([id number])[facility] ([facility])[id number] [place] [address] 69125 Basophils/100 WBC (Bld) 0.3 % Normal 0.0-2.0 [facility] Comment on above: Performed By: #### 5 7021-8 ####DERRICK Hall ([id number])[facility] ([facility])[id number] [place] [address] 61152 Eosinophils (Bld) [#/Vol] 0.23 x10*3/uL Normal 0.00-0.70 [facility] Comment on above: Performed By: #### 5 7021-8 ####DERRICK Hall ([id number])[facility] ([facility])[address] [place] [address] Eosinophils/100 WBC (Bld) 2.5 % Normal 0.0-6.0 [facility] Comment on above: Performed By: #### 5 7021-8 ####DERRICK Hall ([id number])[facility] ([facility])[address] [place] [address] 85702 Erythrocyte distribution width (RBC) [Ratio] 13.2 % Normal 11.5-14.5 [facility] Comment on above: Performed By: #### 5 7021-8 ####DERRICK Hall ([id number])[facility] ([facility])[address]1959 [place] [address] Hematocrit (Bld) [Volume fraction] 41.5 % Normal 36.0-46.0 [facility] Comment on above: Performed By: #### 5 7021-8 ####DERRICK Hall ([id number])[facility] ([facility])[address] [place] [address] Hemoglobin (Bld) [Mass/Vol] 13.1 g/dL Normal 12.0-16.0 [facility] Comment on above: Performed By: #### 5 7021-8 ####DERRICK Hall ([id number])[facility] ([facility])[address] [place] [address] 96501 Immature granulocytes (Bld) [#/Vol] 0.06 x10*3/uL Normal 0.00-0.70 [facility] Comment on above: Performed By: #### 5 7021-8 ####DERRICK Hall ([id number])[facility] ([facility])[address] [place] [address] 41287 Immature granulocytes/100 WBC (Bld) 0.6 % Normal 0.0-0.9 [facility] Comment on above: Result Comment: Arlen ture Granulocyte Count (IG) includes promyelocytes, myelocytes and metamyelocytes but does not include bands. Percent differential counts (%) should be interpreted in the context of the absolute cell counts (cells/UL). Performed By: #### 5 7021-8 ####DERRICK Hall ([id number])[facility] ([facility])[address] [place] [address] Lymphocytes (Bld) [#/Vol] 1.06 x10*3/uL Low 1.20-4.80 [facility] Comment on above: Performed By: #### 5 7021-8 ####DERRICK Hall ([id number])[facility] ([facility])[address]957 [place] [address] Lymphocytes/100 WBC (Bld) 11.4 % Normal 13.0-44.0 [facility] Comment on above: Performed By: #### 5 7021-8 ####DERRICK Hall ([id number])[facility] ([facility])[address]81 [place] [address] MCH (RBC) [Entitic mass] 31.3 pg Normal 26.0-34.0 [facility] Comment on above: Performed By: #### 5 7021-8 ####DERRICK Hall ([id number])[facility] ([facility])[address]15 [place] [address] MCHC (RBC) [Mass/Vol] 31.6 g/dL Low 32.0-36.0 [facility] Comment on above: Performed By: #### 5 7021-8 ####DERRICK Hall ([id number])[facility] ([facility])[address] [place] [address] MCV (RBC) [Entitic vol] 99 fL Normal 80-100 [facility] Comment on above: Performed By: #### 5 7021-8 ####DERRICK Hall ([id number])[facility] ([facility])[address]46 [place] [address] Monocytes (Bld) [#/Vol] 0.72 x10*3/uL Normal 0.10-1.00 [facility] Comment on above: Performed By: #### 5 7021-8 ####DERRICK Hall ([id number])[facility] ([facility])[address]158 [place] [address] Monocytes/100 WBC (Bld) 7.8 % Normal 2.0-10.0 [facility] Comment on above: Performed By: #### 5 7021-8 ####DERRICK BRAR L ([id number])[facility] ([facility])[address]334 [place] [address] Neutrophils (Bld) [#/Vol] 7.18 x10*3/uL Normal 1.20-7.70 [facility] Comment on above: Result Comment: Perc ent differential counts (%) should be interpreted in the context of the absolute cell counts (cells/uL). Performed By: #### 5 7021-8 ####DERRICK Hall ([id number])[facility] ([facility])[address]55 [place] [address] Neutrophils/100 WBC (Bld) 77.4 % Normal 40.0-80.0 [facility] Comment on above: Performed By: #### 5 7021-8 ####DERRICK BRAR L ([id number])[facility] ([facility])[address] [place] [address] 45062 Nucleated RBC/100 WBC (Bld) [Ratio] 0.0 /100 WBCs Normal 0.0-0.0 [facility] Comment on above: Performed By: #### 5 7021-8 ####DERRICK BRAR L ([id number])[facility] ([facility])[address] [place] [address] 99051 Platelets (Bld) [#/Vol] 188 x10*3/uL Normal 150-450 [facility] Comment on above: Performed By: #### 5 7021-8 ####DERRICK BRAR L ([id number])[facility] ([facility])[address] [place] [address] 37653 RBC (Bld) [#/Vol] 4.18 x10*6/uL Normal 4.00-5.20 [facility] Comment on above: Performed By: #### 5 7021-8 ####DERRICK CHOUDHARYMOGAY L ([id number])[facility] ([facility])[address]65 [place] [address] WBC (Bld) [#/Vol] 9.3 x10*3/uL Normal 4.4-11.3 [facility] Comment on above: Performed By: #### 5 7021-8 ####DERRICK CHOUDHARYMOTZCARIDAD L ([id number])[facility] ([facility])[address] [place] [address] 44732 Cancer related large scale g antwan targeted mutation analysis [employer] Doc (Bld/Tiss)Ordered By: Nael Ramirez on 04-02-2025 Electronically signed and reported by Nael Ramirez MD [facility] Work Phone: Focused Solid Tumor DNA/RNA Results v7arsBZiZNWtnQLwGVZsKkaacd RzXLVrtXTwV1GavsjtDPngQN5s IY6vbZfdlJXbyFXbMALkReYei6 xde307dLTvl2yeVOWAWYslZJSM YSp9aHyuE48di4N7PwhoQ40mlB NwVFN5VSCsFUZgqPKsBDRuKPY9 WPHmiSNfJ1ztRUQuFI8wvtzyUJ soNUldXTKvbTT5MHYobDBgJ9Es UHFsIUauTXDdfrc1YwEyBe2alQ VyeTcyMFxwYXJkXHBsYWluXGZz AxZjU3BzS9ghKV70EGA6cKVfuy G4ET50QOPTIbPcFjN7DiizMTAg lHVvIWIswMtfKDAeRETNlW9vol PSc122NS68FaWdQIUdvYGvKZOs zuUBKRMJV7KYSBIGBNxURPWXRL NWBKZ9TA0oE2Cvt4H8RWpjvYNo ZPkgr9BfTzfbwAH0VXqbE2pmRQ 9DFP8PXTEcmoSBA7OpPMFAJFOZ RUQuXHBhclxwYXJccGFyIERJU0 PSR2AmSJQVS7XXMUHSFZKFKI9U TUlDIEZJTkRJTkdTOiBccGFyIE KQJ10hNQHvSrJbYwIwEOkKMU7b RPCgNmtlJp0fVXaSYsCcXORbhp SYHdWRSTIroFmuOgyfPVGzk61x rJXvPAzWWCMmoJ7DZAYISAqBMK 2yPxYrEvIuIe5dSSa+VClccGFy XHBhciBJTlRFUlBSRVRBVElPTi LFCjCgIX9AWJ2HKLJQBMHLIPDB QBOOCIjMBC4SHXrEJmS3WAGkuu HWCmQNYKCrGqObZ4swHSNgQeBD QSQCI31NMMIYHYYQWV6GBvXfJH K4KE4yVCYbWz2oPUZyXIdtEVDj lBnoEQFhNbBYTR5bITNyRefhGS BvRCKcW4Pof4twCSdVbTSqYXI3 HY47VKebYURrf862f8Myb9ixRU dYvCSqYGJ2NJ61DXjpZOKbmWPk QWFSK6TTZ6MlBsOUDEWJBgSqAF qLLEIUFTjVQpUeDe8MFOJLZPQS VWOTIfLdeVDpBM0rR3Q6gZFaDI ZcyqRQIBvvGkQpgO3rLdwsQQVm LwPqXCNtklNyWt8wUOLGEECmFs YzHYSmUIEleoFLWGoeeVb4ZRVq d4SkXUuEZnBxRD0ymMDsfbvfUq QzhZZbxXqjaj1qaFTqSM1xJ5J9 rMNaFEUpgnDVJmROClOmU3Plyt N2tZ4cWX24nZJ7cJ5oGLLbzjJC WEmesQl9GQMtm1BmWEWWMDP5q5 3bURLwa1ddaJTmxxxkbAZ1VQAe u47tWRUpsfSACArstRx9HEVnt2 RbJuLXFvCwxYTsq54kCJRmvjBL QAniaAl5TPIus7KfTkYSCJR2w1 lkeq8tdMNvOZ5pS4K4iDSnKPWw gmFVE4ObEMG2i3ckqd9krUUrSB WbimyqIVUyITiMT8gOHO0VYjxg FMHpbtUXxIlxINJds1X4NAthNJ Npz8jvenPqUAYoZXZkuHWvaSB4 CZCsEXVuXCCwoXbulOScrNj1EY TyoKY7UG97ZIXzivyvATVslCOw LC50oIFuUXBpzhhbscCxSSAkdx DffxMny92uDR8mJIBtqZN8lN5u zyUnWPEwWdRkBJD6kN0zOOBbDA 8gQFkbK2xqP12xnWCdfH1dYDJg XO6xkWbhpJGdxOxkvsFbTAOrGS A0siAly0agH6L1jA3yuaCwudDy ZBCssHOttCLejp96nCKnLgLzYA 8rlz2eBNuudjWya8KcrGTyb3Ty XM7ttCAibVS5dU0ktHnzxLHgPD D7TXNeZPHjhLF5oEDrMK8qQJxv zl4cqQ0xBQJugGDbZJNgp90jJQ oiESUiOTw4drGzJSOeC0eimmWi NOYipvXcVPJlfvZpfdKytYw3CN xucVAdsCenzySai1JgiLLkhdKa NrpvJWtsHG1wrvKtt5SrxkEmUQ JeoKWjjAljICKjWDCignRoVY3m TDYiiHO1XFQpu30kQyOhb0dagT yhUQfcqRs9JP6dTOTyfHVbdRjs dlWkWwQ6mUvlEPKzv5V2XUZ0RK V2ogUph0tznrTxgSwzb9DtXnMt NKsmNTNblwKncyFzXEE8cZ8bZI aldITmm4mvqlRdtKtgOV9wXDFo LIEnkcXpCF2xCIOwGxEhGSVxmI nklzYbYG56lKT5gD7bayVmnrV0 aGUgbGlzdGVkIGdlbmVzIHdoaW MbWFYcFAHsfAMuoDBeHY4xHYQh FMZ7XYHuRQVmdlJexL6pjoSzwl O5gQafRSMby3W7IrDMEB9obkGp FBEtpBGqMNRmf77tfV0huM4may EjnIUiqbzcjVEjgJ71CDFmBYV2 ie4sjC5ylSHbCF9sLFqgiDNlqa lvEVLosjiovcDpVHt2qUHxGUSz BRHkrFBkwFCsx07mv6Cfo5MacY EgEXJhruowipHoQEIrmlAbec79 IGdlbmVyYWxseSBpbmNsdWRlZC EjvvE5tTodTSKqsG6pgF8vSNtw RT1POZ7ZL47DRgXzVBMpP62gzY lvbiBpcyBiYXNlZCBvbiBhbmFs nIUiomDwEsZ1rPK0fzEsHWNoj2 5vbnVjbGVvdGlkZSByZXBlYXQg qT0bpSTpbzTgvg10VERox1HkQS 9nDGTdAJM0DL8kFSwzAMBQXLMn b6LqnTIjNYXgbmBvjAHbXX17BV LfnP4rJ8CiPFLgAOB0kDJxNRn7 bMGckGycREUlRHRpYHT2dMBgj3 okqUClDt6aFB0APN8XU58HCrW5 FYLdFEZ5GDSbtI4oQYXchPAunc CreMPkD8VtJYXuhkPvmkOjduRu NVGjCEYQUDBcWIvXSXHzw9P1sa N5h0vdZxLwGWtkyGilN72li1Tn Y2WulAPqmaQukCDsgrakRMLSBc NJVEOxq4Z7DH4zJDefAREsuC2i W1PjFQQtcVtezWT5LK3eHFGkMC DuiXQzgWJpcRi0JGOGN9irZPQh uXveBAIig48rwRElFG0khDMcMQ VuIGVzdGFibGlzaGVkLlxwYXJc wMPvGArnAN27fAEmK4L8sZ7bFM 0wMGZiw1YtF5Znc6IbE4IaU9Op ARVkf13dtKJ3MAChmNN9GQNeo7 9sFJCtIHXcst24YP7yK4Gcj7Qg xDb7ZVjdDNviVLLcHBOypqMzpQ 9hh6BfvC8mjOxhbrCmnO0tZSKn X1aabM7fkeCpgfBdJLDaOR52WL EhmbKvCF8yTBBcDQU9wTPpuNPx vJK3ATLaFADgt3HlWV0jSMNuRW TreqSmkKFnZUZviRHlKMJuL2Ow QGq4YSndTS98XI4zIQYvYDW8lf ZfbMllIaIwlPqwfZLxEP3wKCDp j5mcOwEgwdYiWRKbF796pqYrMK alEYEalFbcG2DoaCMhlD4zr8Yb LXMvq62aV85oS0XvjwraWdF4oQ NymHN7xJGvoQgaPIWfwhAoiUuv nqZucFEgVGGjONLmsQ6tY2EmSV WpGWJkpJR1p7PvkGvmjR6dlVCv CovuYNutU9CnHA04oMDwRZmiTo 5kKEJxzsefJiehWLttH5MyCYYa VDMyIQDsDI95BWQfUAOgbeXiW9 BoZbQZsTzwZHLsxY5hkPWkgoBy iMIyfcVuffJlir0vzWffidPgzi 3oNNP9XywgGvUko2AyI8HqGCNm tdQvjCEhltjlh1QnNF79hPQjGe BhbmQgbWVkaWNhbCBsaXRlcmF0 dXJlIHRvIGJldHRlciBjaGFyYW K9MAFywfHkmDujOPUdE84vRuzo LY1lSWAhWpNbdYUshxG1dM4gtv XwPWSwS2ZkMZ1wpEKcWKHwkoPE yRicXOsxYq6eFJVjxgerPZY5FP ayoTZgORHvv6Jqk7VoBDDgcbSv u1YwXDLycpUgdPNnPGStVXd1uC mwSSzjuSBkIp1tbGFvG8TiU7qh qnHieRZnvDA6iYFuHEwaojUfIn JcmzTuIWCgso1wtzAjYDC6LVTL RIGiFI8ykNP3iA6fHIemMZXkh9 WehA7asK0gBEtigsI1PFJ0FCxt lqLku0RwBjIlauHezOLywgHgLN 7cDGDtxNScbkCmJKB7DVOxRPQT KRZ7ONaaq3C3YIWxILMrCNAHAZ EgaGFzIGRldGVybWluZWQgdGhh dCBzdWNoIGFwcHJvdmFsIGlzIG 0gxYErSDVpk9PgnqwjXTZkROIJ KKTOWLtmHSRisjCzWyifGXO2rk JcljD0hNXcY6xrlrcyHRwzSAZi c8XcdW1xsQJBcJZom5RfnPYvyG YEvFFgYN0tlvQtQN0yOHL0REga MXKXHOQcHZilPOZkGSO0QJtcTq uyRBS3hfFtLBYsj0LvXLkaN2kj E15ioNbvbSi0pPI1LHT9nF0zJl xwYXJccGFyIFBBTkVMIEdFTkUg TNmEPZdufOKbDCpwqXVwi0FwLM R5PFKhe51aTGobalBzPRnvZAGq odU7WeExcHg2TQKHIZXqLNWCZt hwWBBDLKRXTdYXYADXUl6cJGTP POIdZHFSJdBaEQRVDUp5SWUQSF jHKuAzLRRXCGRQYLdeC7NCIzHi DEFPR9MABQWMDLGiJJvsEZRTHr IsIEVSQkIzLCBFUkJCNCwgRVNS MSwgRkJYVzcsIEZHRlIyLCBGR0 NPBjwuL20QTTMmDUaELGHaHJlc RjNBLCBISVNUMUgzQiwgSFJBUy wgSURIMSwgSURIMiwgSkFLMSwg YmTSZsvdHxTLIqgtI8YQUOXlJD zTXSilE0GEMosaFOLSZlbzKWXP RXXkHhGcWJ5BPDofUHVBHpgsHa ZFMkwyLCBOUkFTLCBQREdGUkEs ZOEEBhBVBFdyXK8OTFdfRKJPWm hwAiUVFTMIS1QyMXDFSUNWLYlx S6GZYTGmYGQEEashFDO3RjfvXH AONqBfEJKvtkYZt9K7PC74qBPi boRCBCMuUH30ddVrX8Wltjo6UX FMSywgQVIsIEJSQUYsIENDTkQx NADNAUw0LJBAGNl2QKKJK3LAEE BFUkJCMiwgRkdGUjEsIEZHRlIy LCRPC3FHCkmjVujRGeVxTLoTJS woF8HIFcsoXUVCBUHMDZMvUJ9X B18lARFQD0BWIGajBZdKR4UEZe duTEQdRvEhwU9lhvKcQAFfhjXs IGdlbmVzKTogQUxLLCBCUkFGLC ACU0IGDNRTS7CQMQelTmiRBdPu RXJITrAsJOIFZXVxGA1WNngyPP BOVFJLMiwgTlRSSzMsIFJFVCwg Yb8LRUpwIS9QZzVXJx9faOLkXP FxdjYRA8jnE6MhqVQjNQ0uyevk lzE2SL9ibq8xtXTqKR82dXDgSU FfwDPozUMke7XfEzseIZDvEw01 DEPraYNdgS0rniNyTeQyyTikZ1 OzKADrQGCtMTUzdUXbauMvGM2z V1Gch57dTUUas8BpBls3TGrdLb P4PJP8JEHamOOaYFTfy3AkZFqz N05pHJ66SDOpIRT2UNEuQA01DI NhbGxpbmcuXHBhclxwYXJccGFy fQ== [facility] Work Phone: [facility] Work Phone: Glucose Test strip manual (B ld) [Mass/Vol]on 04-02-2025 Glucose [Mass/Vol] 229 mg/dL High 74 - 99 mg/dL [facility] Interpretation and review of laboratory results Abnormal [facility] Glucose [Mass/Vol] 229 mg/dL High 74-99 [facility] Comment on above: Performed By: #### 2 341-6 ####DERRICK Hall ([id number])[facility] ([facility])[address] [place] [address] Glucose [Mass/Vol] 250 mg/dL High 74 - 99 mg/dL [facility] Interpretation and review of laboratory results Abnormal [facility] Glucose [Mass/Vol] 250 mg/dL High 74-99 [facility] Comment on above: Performed By: #### 2 341-6 ####DERRICK Hall ([id number])[facility] ([facility])[id number] [place] [address] Glucose [Mass/Vol] 220 mg/dL High 74 - 99 mg/dL [facility] Interpretation and review of laboratory results Abnormal [facility] Glucose [Mass/Vol] 220 mg/dL High 74-99 [facility] Comment on above: Performed By: #### 2 341-6 ####DERRICK Hall ([id number])[facility] ([facility])[address] [place] [address] Glucose [Mass/Vol] 179 mg/dL High 74 - 99 mg/dL [facility] Interpretation and review of laboratory results Abnormal [facility] Glucose [Mass/Vol] 179 mg/dL High 74-99 [facility] Comment on above: Performed By: #### 2 341-6 ####DERRICK Hall ([id number])[facility] ([facility])[id number] [place] [address] Magnesiumon 04-02-2025 Magnesium [Mass/Vol] 2.07 mg/dL 1.60 - 2.40 mg/dL [facility] Magnesium [Mass/Vol] 2.07 mg/dL Normal 1.60-2.40 [facility] Comment on above: Performed By: #### 1 9123-9 ####DERRICK Hall ([id number])[facility] ([facility])[address] [place] [address] Magnesium [Mass/Vol]on 04-02 Interpretation and review of laboratory results Normal [facility] NM Whole body Bone Viewson 0 04-02-2025 [facility] MM[facility]AL [facility] MM[facility]AL [facility] Work Phone: NM Whole body Bone ViewsOrde red By: Barbrakymjose Ugalde on 04-02-2025 [facility] Work Phone: No Panel Informationon 04-02 [facility] Renal function 2000 panelon 04-02-2025 Albumin BCP dye [Mass/Vol] 3.1 g/dL Low 3.4 - 5.0 g/dL [facility] Anion gap [Moles/Vol] 12 mmol/L 10 - 2 0 mmol/L [facility] Calcium [Mass/Vol] 9.5 mg/dL 8.6 - 10. 6 mg/dL [facility] Chloride [Moles/Vol] 97 mmol/L Low 98 - 10 7 mmol/L [facility] CO2 [Moles/Vol] 29 mmol/L 21 - 32 mmol/L [facility] Creatinine [Mass/Vol] 0.61 mg/dL 0.50 - 1.05 mg/dL [facility] eGFR - PINF [facility] Glucose [Mass/Vol] 202 mg/dL High 74 - 99 mg/dL [facility] Interpretation and review of laboratory results Abnormal [facility] Phosphate [Mass/Vol] 2.8 mg/dL 2.5 - 4 .9 mg/dL [facility] Potassium [Moles/Vol] 4.0 mmol/L 3.5 - 5.3 mmol/L [facility] Sodium [Moles/Vol] 134 mmol/L Low 136 - 145 mmol/L [facility] Urea nitrogen [Mass/Vol] 12 mg/dL 6 - 23 mg/dL [facility] Albumin BCP dye [Mass/Vol] 3.1 g/dL Low 3.4-5.0 [facility] Comment on above: Performed By: #### 2 4362-6 ####DERRICK Hall ([id number])[facility] ([facility])[address] [place] [address] Anion gap [Moles/Vol] 12 mmol/L Normal 10-20 [facility] Comment on above: Performed By: #### 2 4362-6 ####DERRICK BRAR L ([id number])[facility] ([facility])[address] [place] [address] Calcium [Mass/Vol] 9.5 mg/dL Normal 8.6-10.6 [facility] Comment on above: Performed By: #### 2 4362-6 ####DERRICK SIMER L ([id number])[facility] ([facility])[address] [place] [address] Chloride [Moles/Vol] 97 mmol/L Low 98-107 [facility] Comment on above: Performed By: #### 2 4362-6 ####DERRICK BRAR L ([id number])[facility] ([facility])[address] [place] [address] CO2 [Moles/Vol] 29 mmol/L Normal 21-32 [facility] Comment on above: Performed By: #### 2 4362-6 ####DERIRCK BRAR L ([id number])[facility] ([facility])[address] [place] [address] Creatinine [Mass/Vol] 0.61 mg/dL Normal 0.50-1.05 [facility] Comment on above: Performed By: #### 2 4362-6 ####DERRICK CHOUDHARYMOTZER L ([id number])[facility] ([facility])[address] [place] [address] Glomerular filtration rate >90 Normal >60 [facility] Comment on above: Result Comment: Calc ulations of estimated GFR are performed using the 2020 CKD-EPI Study Refit equation without the race variable for the IDMS-Traceable creatinine methods.https://jasn.asnjournals.org/content/early/ N.3352144129 Performed By: #### 2 4362-6 ####DERRICK BRAR L ([id number])[facility] ([facility])[address] [place] [address] Glucose [Mass/Vol] 202 mg/dL High 74-99 [facility] Comment on above: Performed By: #### 2 4362-6 ####DERRICK Hall ([id number])[facility] ([facility])[address] [place] [address] Phosphate [Mass/Vol] 2.8 mg/dL Normal 2.5-4.9 [facility] Comment on above: Performed By: #### 2 4362-6 ####DERRICK Hall ([id number])[facility] ([facility])[address] [place] [address] Potassium [Moles/Vol] 4.0 mmol/L Normal 3.5-5.3 [facility] Comment on above: Performed By: #### 2 4362-6 ####DERRICK Hall ([id number])[facility] ([facility])[address] [place] [address] Sodium [Moles/Vol] 134 mmol/L Low 136-145 [facility] Comment on above: Performed By: #### 2 4362-6 ####DERRICK Hall ([id number])[facility] ([facility])[address] [place] [address] Urea nitrogen [Mass/Vol] 12 mg/dL Normal 6-23 [facility] Comment on above: Performed By: #### 2 4362-6 ####DERRICK Hall ([id number])[facility] ([facility])[address] [place] [address] Albumin BCP dye [Mass/Vol] 3.1 g/dL Low 3.4 - 5.0 g/dL [facility] Anion gap [Moles/Vol] 13 mmol/L 10 - 2 0 mmol/L [facility] Calcium [Mass/Vol] 9.3 mg/dL 8.6 - 10. 6 mg/dL [facility] Chloride [Moles/Vol] 99 mmol/L 98 - 10 7 mmol/L [facility] CO2 [Moles/Vol] 28 mmol/L 21 - 32 mmol/L [facility] Creatinine [Mass/Vol] 0.49 mg/dL Low 0.50 - 1.05 mg/dL [facility] eGFR - PINF [facility] Glucose [Mass/Vol] 155 mg/dL High 74 - 99 mg/dL [facility] Interpretation and review of laboratory results Abnormal [facility] Phosphate [Mass/Vol] 3.1 mg/dL 2.5 - 4 .9 mg/dL [facility] Potassium [Moles/Vol] 4.6 mmol/L 3.5 - 5.3 mmol/L [facility] Sodium [Moles/Vol] 135 mmol/L Low 136 - 145 mmol/L [facility] Urea nitrogen [Mass/Vol] 10 mg/dL 6 - 23 mg/dL [facility] Albumin BCP dye [Mass/Vol] 3.1 g/dL Low 3.4-5.0 [facility] Comment on above: Performed By: #### 2 4362-6 ####DERRICK Hall ([id number])[facility] ([facility])[address] [place] [address] Anion gap [Moles/Vol] 13 mmol/L Normal 10-20 [facility] Comment on above: Performed By: #### 2 4362-6 ####DERRICK Hall ([id number])[facility] ([facility])[address] [place] [address] Calcium [Mass/Vol] 9.3 mg/dL Normal 8.6-10.6 [facility] Comment on above: Performed By: #### 2 4362-6 ####DERRICK BRAR L ([id number])[facility] ([facility])[address] [place] [address] Chloride [Moles/Vol] 99 mmol/L Normal 98-107 [facility] Comment on above: Performed By: #### 2 4362-6 ####DERRICK Hall ([id number])[facility] ([facility])[address] [place] [address] CO2 [Moles/Vol] 28 mmol/L Normal 21-32 [facility] Comment on above: Performed By: #### 2 4362-6 ####DERRICK Hall ([id number])[facility] ([facility])[address] [place] [address] Creatinine [Mass/Vol] 0.49 mg/dL Low 0.50-1.05 [facility] Comment on above: Performed By: #### 2 4362-6 ####DERRICK Hall ([id number])[facility] ([facility])[address] [place] [address] Glomerular filtration rate >90 Normal >60 [facility] Comment on above: Result Comment: Calc ulations of estimated GFR are performed using the 2020 CKD-EPI Study Refit equation without the race variable for the IDMS-Traceable creatinine methods.https://jasn.asnjournals.org/content/early/ N.1815250175 Performed By: #### 2 4362-6 ####DERRICK Hall ([id number])[facility] ([facility])[address] [place] [address] Glucose [Mass/Vol] 155 mg/dL High 74-99 [facility] Comment on above: Performed By: #### 2 4362-6 ####DERRICK Hall ([id number])[facility] ([facility])[address] [place] [address] Phosphate [Mass/Vol] 3.1 mg/dL Normal 2.5-4.9 [facility] Comment on above: Performed By: #### 2 4362-6 ####DERRICK Hall ([id number])[facility] ([facility])[address] [place] [address] Potassium [Moles/Vol] 4.6 mmol/L Normal 3.5-5.3 [facility] Comment on above: Performed By: #### 2 4362-6 ####DERRICK Hall ([id number])[facility] ([facility])[address] [place] [address] Sodium [Moles/Vol] 135 mmol/L Low 136-145 [facility] Comment on above: Performed By: #### 2 4362-6 ####DERRICK Hall ([id number])[facility] ([facility])[address] [place] [address] Urea nitrogen [Mass/Vol] 10 mg/dL Normal 6- [facility] Comment on above: Performed By: #### 2 4362-6 ####DERRICK BRAR L ([id number])[facility] ([facility])[address] [place] [address] XR CHEST 1 VIEWon 04-02-2025 XR CHEST 1 VIEW Normal [facility] XR Chest Single viewon 04-02 [facility] MMODAL UH MMODAL [facility] Work Phone: [facility] Work Phone: Radiology Study observation (narrative) [facility] Work Phone: CBC W Auto Differential pane l (Bld)on 04-01-2025 Basophils (Bld) [#/Vol] 0.03 10*3/uL [facility] Basophils/100 WBC (Bld) 0.3 % 0.0 - 2.0 % [facility] Eosinophils (Bld) [#/Vol] 0.23 10*3/uL [facility] Eosinophils/100 WBC (Bld) 2.5 % 0.0 - 6.0 % [facility] Erythrocyte distribution width (RBC) [Ratio] 12.8 % 11.5 - 14.5 % [facility] Hematocrit (Bld) [Volume fraction] 41.1 % 36.0 - 46.0 % [facility] Hemoglobin (Bld) [Mass/Vol] 12.8 g/dL 12.0 - 16.0 g/dL [facility] Immature granulocytes (Bld) [#/Vol] 0.07 10*3/uL [facility] Immature granulocytes/100 WBC (Bld) 0.8 % 0.0 - 0.9 % [facility] Interpretation and review of laboratory results Abnormal [facility] Lymphocytes (Bld) [#/Vol] 1.22 10*3/uL [facility] Lymphocytes/100 WBC (Bld) 13.1 % 13.0 - 44.0 % [facility] MCH (RBC) [Entitic mass] 30.9 pg 26.0 - 34.0 pg [facility] MCHC (RBC) [Mass/Vol] 31.1 g/dL Low 32.0 - 36.0 g/dL [facility] MCV (RBC) [Entitic vol] 99 fL 80 - 100 fL [facility] Monocytes (Bld) [#/Vol] 0.66 10*3/uL [facility] Monocytes/100 WBC (Bld) 7.1 % 2.0 - 10.0 % [facility] Neutrophils (Bld) [#/Vol] 7.10 10*3/uL [facility] Neutrophils/100 WBC (Bld) 76.2 % 40.0 - 80.0 % [facility] Nucleated RBC/100 WBC (Bld) [Ratio] 0.0 % [facility] Platelets (Bld) [#/Vol] 179 10*3/uL [facility] RBC (Bld) [#/Vol] 4.14 10*6/uL [facility] WBC (Bld) [#/Vol] 9.3 10*3/uL [facility] Basophils (Bld) [#/Vol] 0.03 x10*3/uL Normal 0.00-0.10 [facility] Comment on above: Performed By: #### 5 7021-8 ####DERRICK Hall ([id number])[facility] ([facility])[address] [place] [address] Basophils/100 WBC (Bld) 0.3 % Normal 0.0-2.0 [facility] Comment on above: Performed By: #### 5 7021-8 ####DERRICK Hall ([id number])[facility] ([facility])[address] [place] [address] Eosinophils (Bld) [#/Vol] 0.23 x10*3/uL Normal 0.00-0.70 [facility] Comment on above: Performed By: #### 5 7021-8 ####DERRICK Hall ([id number])[facility] ([facility])[address] [place] [address] Eosinophils/100 WBC (Bld) 2.5 % Normal 0.0-6.0 [facility] Comment on above: Performed By: #### 5 7021-8 ####DERRICK Hall ([id number])[facility] ([facility])[address] [place] [address] Erythrocyte distribution width (RBC) [Ratio] 12.8 % Normal 11.5-14.5 [facility] Comment on above: Performed By: #### 5 7021-8 ####DERRICK Hall ([id number])[facility] ([facility])[address] [place] [address] Hematocrit (Bld) [Volume fraction] 41.1 % Normal 36.0-46.0 [facility] Comment on above: Performed By: #### 5 7021-8 ####DERRICK aHll ([id number])[facility] ([facility])[address] [place] [address] Hemoglobin (Bld) [Mass/Vol] 12.8 g/dL Normal 12.0-16.0 [facility] Comment on above: Performed By: #### 5 7021-8 ####DERRICK Hall ([id number])[facility] ([facility])[address] [place] [address] Immature granulocytes (Bld) [#/Vol] 0.07 x10*3/uL Normal 0.00-0.70 [facility] Comment on above: Performed By: #### 5 7021-8 ####DERRICK Hall ([id number])[facility] ([facility])[address] [place] [address] Immature granulocytes/100 WBC (Bld) 0.8 % Normal 0.0-0.9 [facility] Comment on above: Result Comment: Arlen ture Granulocyte Count (IG) includes promyelocytes, myelocytes and metamyelocytes but does not include bands. Percent differential counts (%) should be interpreted in the context of the absolute cell counts (cells/UL). Performed By: #### 5 7021-8 ####DERRICK Hall ([id number])[facility] ([facility])[address] [place] [address] Lymphocytes (Bld) [#/Vol] 1.22 x10*3/uL Normal 1.20-4.80 [facility] Comment on above: Performed By: #### 5 7021-8 ####DERRICK Hall ([id number])[facility] ([facility])[address] [place] [address] Lymphocytes/100 WBC (Bld) 13.1 % Normal 13.0-44.0 [facility] Comment on above: Performed By: #### 5 7021-8 ####DERRICK Hall ([id number])[facility] ([facility])[address] [place] [address] MCH (RBC) [Entitic mass] 30.9 pg Normal 26.0-34.0 [facility] Comment on above: Performed By: #### 5 7021-8 ####DERRICK Hall ([id number])[facility] ([facility])[address] [place] [address] MCHC (RBC) [Mass/Vol] 31.1 g/dL Low 32.0-36.0 [facility] Comment on above: Performed By: #### 5 7021-8 ####DERRICK Hall ([id number])[facility] ([facility])[address] [place] [address] MCV (RBC) [Entitic vol] 99 fL Normal 80-100 [facility] Comment on above: Performed By: #### 5 7021-8 ####DERRICK Hall ([id number])[facility] ([facility])[address] [place] [address] Monocytes (Bld) [#/Vol] 0.66 x10*3/uL Normal 0.10-1.00 [facility] Comment on above: Performed By: #### 5 7021-8 ####DERRICK ALVESTZER L ([id number])[facility] ([facility])[address] [place] [address] Monocytes/100 WBC (Bld) 7.1 % Normal 2.0-10.0 [facility] Comment on above: Performed By: #### 5 7021-8 ####DERRICK SIMER L ([id number])[facility] ([facility])[address] [place] [address] Neutrophils (Bld) [#/Vol] 7.10 x10*3/uL Normal 1.20-7.70 [facility] Comment on above: Result Comment: Perc ent differential counts (%) should be interpreted in the context of the absolute cell counts (cells/uL). Performed By: #### 5 7021-8 ####DERRICK BRAR L ([id number])[facility] ([facility])[address] [place] [address] Neutrophils/100 WBC (Bld) 76.2 % Normal 40.0-80.0 [facility] Comment on above: Performed By: #### 5 7021-8 ####DERRICK Hall ([id number])[facility] ([facility])[address] [place] [address] Nucleated RBC/100 WBC (Bld) [Ratio] 0.0 /100 WBCs Normal 0.0-0.0 [facility] Comment on above: Performed By: #### 5 7021-8 ####DERRICK BRAR L ([id number])[facility] ([facility])[address] [place] [address] Platelets (Bld) [#/Vol] 179 x10*3/uL Normal 150-450 [facility] Comment on above: Performed By: #### 5 7021-8 ####DERRICK BRAR L ([id number])[facility] ([facility])[address] [place] [address] RBC (Bld) [#/Vol] 4.14 x10*6/uL Normal 4.00-5.20 [facility] Comment on above: Performed By: #### 5 7021-8 ####DERRICK Hall ([id number])[facility] ([facility])[address] [place] [address] WBC (Bld) [#/Vol] 9.3 x10*3/uL Normal 4.4-11.3 [facility] Comment on above: Performed By: #### 5 7021-8 ####DERRICK Hall ([id number])[facility] ([facility])[id number] [place] [id number] Glucose Test strip manual (B ld) [Mass/Vol]on 04-01-2025 Glucose [Mass/Vol] 193 mg/dL High 74 - 99 mg/dL [facility] Interpretation and review of laboratory results Abnormal [facility] Glucose [Mass/Vol] 193 mg/dL High 74-99 [facility] Comment on above: Performed By: #### 2 341-6 ####DERRICK Hall ([id number])[facility] ([facility])[id number] [place] [id number] Glucose [Mass/Vol] 188 mg/dL High 74 - 99 mg/dL [facility] Interpretation and review of laboratory results Abnormal [facility] Glucose [Mass/Vol] 188 mg/dL High 74-99 [facility] Comment on above: Performed By: #### 2 341-6 ####DERRICK Hall ([id number])[facility] ([facility])[id number] [place] [address] Glucose [Mass/Vol] 208 mg/dL High 74 - 99 mg/dL [facility] Interpretation and review of laboratory results Abnormal [facility] Glucose [Mass/Vol] 208 mg/dL High 74-99 [facility] Comment on above: Performed By: #### 2 341-6 ####DERRICK Hall ([id number])[facility] ([facility])[address] [place] [address] Glucose [Mass/Vol] 211 mg/dL High 74 - 99 mg/dL [facility] Interpretation and review of laboratory results Abnormal [facility] Glucose [Mass/Vol] 211 mg/dL High 74-99 [facility] Comment on above: Performed By: #### 2 341-6 ####DERRICK Hall ([id number])[facility] ([facility])[address] [place] [address] Glucose [Mass/Vol] 171 mg/dL High 74 - 99 mg/dL [facility] Interpretation and review of laboratory results Abnormal [facility] Glucose [Mass/Vol] 171 mg/dL High 74-99 [facility] Comment on above: Performed By: #### 2 341-6 ####DERRICK Hall ([id number])[facility] ([facility])[address] [place] [address] Glucose [Mass/Vol] 174 mg/dL High 74 - 99 mg/dL [facility] Interpretation and review of laboratory results Abnormal [facility] Glucose [Mass/Vol] 174 mg/dL High 74-99 [facility] Comment on above: Performed By: #### 2 341-6 ####DERRICK Hall ([id number])[facility] ([facility])[address] [place] [address] Glucose [Mass/Vol] 210 mg/dL High 74 - 99 mg/dL [facility] Interpretation and review of laboratory results Abnormal [facility] Glucose [Mass/Vol] 210 mg/dL High 74-99 [facility] Comment on above: Performed By: #### 2 341-6 ####DERRICK Hall ([id number])[facility] ([facility])[address] [place] [address] Guidance for thoracentesis o f Cheston 04-01-2025 MMODAL [facility] MMODAL [facility] Work Phone: [facility] Work Phone: Magnesiumon 04-01-2025 Magnesium [Mass/Vol] 1.98 mg/dL 1.60 - 2.40 mg/dL [facility] Magnesium [Mass/Vol] 1.98 mg/dL Normal 1.60-2.40 [facility] Comment on above: Performed By: #### 1 9123-9 ####DERRICK Hall ([id number])[facility] ([facility])[address] [place] [address] Magnesium [Mass/Vol]on 04-01 Interpretation and review of laboratory results Normal [facility] NM Whole body Bone Viewson 0 04-01-2025 Radiology Study observation (narrative) [facility] Work Phone: No Panel Informationon 04-01 [facility] Pathologist review Darío (Unsp spec) [Interp]Ordered By: Lois Zambrano on 04-01-2025 Pathologist Review-Cell Count, Fluid Predominance of chronic inflammatory cells in a hemorrhagic background. No malignant cells identified. No organism identified. Cells identified as unclassified are reactive mesothelial cells. [facility] Work Phone: [facility] Work Phone: Rad Onc Msq Treatment Summar yon 04-01-2025 Actual Fractions Delivered 1 [facility] Actual Session Delivered Dose 800 cGray [facility] Actual Total Dose 800 cGray [facility] Course Number 1 [facility] Elapsed Days 0 [facility] Last Date 04/01/2025 [facility] Prescribed Fractional Dose 800 cGray [facility] Prescribed Number of Fractions 1 [facility] Prescribed Technique AP/PA [facility] Prescribed Total Dose 800 cGray [facility] Prescription Pattern Comment CBCT daily. Match on Melvin/Tspine [facility] Start Date 04/01/2025 [facility] Treatment Site Rtlung [facility] Renal function 2000 panelon 04-01-2025 Albumin BCP dye [Mass/Vol] 3.1 g/dL Low 3.4 - 5.0 g/dL [facility] Anion gap [Moles/Vol] 13 mmol/L 10 - 2 0 mmol/L [facility] Calcium [Mass/Vol] 9.5 mg/dL 8.6 - 10. 6 mg/dL [facility] Chloride [Moles/Vol] 99 mmol/L 98 - 10 7 mmol/L [facility] CO2 [Moles/Vol] 27 mmol/L 21 - 32 mmol/L [facility] Creatinine [Mass/Vol] 0.55 mg/dL 0.50 - 1.05 mg/dL [facility] eGFR - PINF [facility] Glucose [Mass/Vol] 169 mg/dL High 74 - 99 mg/dL [facility] Interpretation and review of laboratory results Abnormal [facility] Phosphate [Mass/Vol] 2.7 mg/dL 2.5 - 4 .9 mg/dL [facility] Potassium [Moles/Vol] 4.3 mmol/L 3.5 - 5.3 mmol/L [facility] Sodium [Moles/Vol] 135 mmol/L Low 136 - 145 mmol/L [facility] Urea nitrogen [Mass/Vol] 9 mg/dL 6 - 23 mg/dL [facility] Albumin BCP dye [Mass/Vol] 3.1 g/dL Low 3.4-5.0 [facility] Comment on above: Performed By: #### 2 4362-6 ####DERRICK Hall ([id number])[facility] ([facility])[address] [place] [address] Anion gap [Moles/Vol] 13 mmol/L Normal 10-20 [facility] Comment on above: Performed By: #### 2 4362-6 ####DERRICK Hall ([id number])[facility] ([facility])[address] [place] [address] Calcium [Mass/Vol] 9.5 mg/dL Normal 8.6-10.6 [facility] Comment on above: Performed By: #### 2 4362-6 ####DERRICK BRAR L ([id number])[facility] ([facility])[address] [place] [address] Chloride [Moles/Vol] 99 mmol/L Normal 98-107 [facility] Comment on above: Performed By: #### 2 4362-6 ####DERRICK ALVESTZCARIDAD L ([id number])[facility] ([facility])[address] [place] [address] CO2 [Moles/Vol] 27 mmol/L Normal 21-32 [facility] Comment on above: Performed By: #### 2 4362-6 ####DERRICK BRAR L ([id number])[facility] ([facility])[address] [place] [address] Creatinine [Mass/Vol] 0.55 mg/dL Normal 0.50-1.05 [facility] Comment on above: Performed By: #### 2 4362-6 ####DERRICK BRAR L ([id number])[facility] ([facility])[address] [place] [address] Glomerular filtration rate >90 Normal >60 [facility] Comment on above: Result Comment: Calc ulations of estimated GFR are performed using the 2020 CKD-EPI Study Refit equation without the race variable for the IDMS-Traceable creatinine methods.https://jasn.asnjournals.org/content/early// N.8831210201 Performed By: #### 2 4362-6 ####DERRICK CHOUDHARYMOTZER L ([id number])[facility] ([facility])[address] [place] [address] Glucose [Mass/Vol] 169 mg/dL High 74-99 [facility] Comment on above: Performed By: #### 2 4362-6 ####DERRICK CHOUDHARYMOTZER L ([id number])[facility] ([facility])[address] [place] [address] Phosphate [Mass/Vol] 2.7 mg/dL Normal 2.5-4.9 [facility] Comment on above: Performed By: #### 2 4362-6 ####DERRICK Hall ([id number])[facility] ([facility])[address] [place] [address] Potassium [Moles/Vol] 4.3 mmol/L Normal 3.5-5.3 [facility] Comment on above: Performed By: #### 2 4362-6 ####DERRICK Hall ([id number])[facility] ([facility])[address] [place] [address] Sodium [Moles/Vol] 135 mmol/L Low 136-145 [facility] Comment on above: Performed By: #### 2 4362-6 ####DERRICK Hall ([id number])[facility] ([facility])[address] [place] [address] Urea nitrogen [Mass/Vol] 9 mg/dL Normal 6-23 [facility] Comment on above: Performed By: #### 2 4362-6 ####DERRICK Hall ([id number])[facility] ([facility])[address] [place] [address] Albumin BCP dye [Mass/Vol] 3.0 g/dL Low 3.4 - 5.0 g/dL [facility] Anion gap [Moles/Vol] 12 mmol/L 10 - 2 0 mmol/L [facility] Calcium [Mass/Vol] 9.0 mg/dL 8.6 - 10. 6 mg/dL [facility] Chloride [Moles/Vol] 101 mmol/L 98 - 10 7 mmol/L [facility] CO2 [Moles/Vol] 28 mmol/L 21 - 32 mmol/L [facility] Creatinine [Mass/Vol] 0.49 mg/dL Low 0.50 - 1.05 mg/dL [facility] eGFR - PINF [facility] Glucose [Mass/Vol] 156 mg/dL High 74 - 99 mg/dL [facility] Interpretation and review of laboratory results Abnormal [facility] Phosphate [Mass/Vol] 2.9 mg/dL 2.5 - 4 .9 mg/dL [facility] Potassium [Moles/Vol] 4.4 mmol/L 3.5 - 5.3 mmol/L [facility] Sodium [Moles/Vol] 137 mmol/L 136 - 145 mmol/L [facility] Urea nitrogen [Mass/Vol] 9 mg/dL 6 - 23 mg/dL [facility] Albumin BCP dye [Mass/Vol] 3.0 g/dL Low 3.4-5.0 [facility] Comment on above: Performed By: #### 2 4362-6 ####DERRICK Hall ([id number])[facility] ([facility])[address] [place] [address] Anion gap [Moles/Vol] 12 mmol/L Normal 10-20 [facility] Comment on above: Performed By: #### 2 4362-6 ####DERRICK Hall ([id number])[facility] ([facility])[address] [place] [address] Calcium [Mass/Vol] 9.0 mg/dL Normal 8.6-10.6 [facility] Comment on above: Performed By: #### 2 4362-6 ####DERRICK Hall ([id number])[facility] ([facility])[address] [place] [address] Chloride [Moles/Vol] 101 mmol/L Normal 98-107 [facility] Comment on above: Performed By: #### 2 4362-6 ####DERRICK BRAR L ([id number])[facility] ([facility])[address] [place] [address] CO2 [Moles/Vol] 28 mmol/L Normal 21-32 [facility] Comment on above: Performed By: #### 2 4362-6 ####DERRICK Hall ([id number])[facility] ([facility])[address] [place] [address] Creatinine [Mass/Vol] 0.49 mg/dL Low 0.50-1.05 [facility] Comment on above: Performed By: #### 2 4362-6 ####DERRICK Hall ([id number])[facility] ([facility])[address] [place] [address] Glomerular filtration rate >90 Normal >60 [facility] Comment on above: Result Comment: Calc ulations of estimated GFR are performed using the 2020 CKD-EPI Study Refit equation without the race variable for the IDMS-Traceable creatinine methods.https://jasn.asnjournals.org/content/early/ N.8412405438 Performed By: #### 2 4362-6 ####DERRICK Hall ([id number])[facility] ([facility])[address] [place] [address] Glucose [Mass/Vol] 156 mg/dL High 74-99 [facility] Comment on above: Performed By: #### 2 4362-6 ####DERRICK BRAR L ([id number])[facility] ([facility])[address] [place] [address] Phosphate [Mass/Vol] 2.9 mg/dL Normal 2.5-4.9 [facility] Comment on above: Performed By: #### 2 4362-6 ####DERRICK BRAR L ([id number])[facility] ([facility])[address] [place] [address] Potassium [Moles/Vol] 4.4 mmol/L Normal 3.5-5.3 [facility] Comment on above: Performed By: #### 2 4362-6 ####DERRICK CHOUDHARYMOTZER L ([id number])[facility] ([facility])[address] [place] [address] Sodium [Moles/Vol] 137 mmol/L Normal 136-145 [facility] Comment on above: Performed By: #### 2 4362-6 ####DERRICK BRAR L ([id number])[facility] ([facility])[address] [place] [address] Urea nitrogen [Mass/Vol] 9 mg/dL Normal 03-01 [facility] Comment on above: Performed By: #### 2 4362-6 ####DERRICK Hall ([id number])[facility] ([facility])[address] [place] [id number] UHTL HOLDOrdered By: Anastasiya ann on 04-01-2025 [facility] XR Chest Single viewon 04-01 [facility] MMODAL [facility] MMODAL [facility] Work Phone: [facility] Work Phone: Bacteriaon 03-31-2025 Bacteria identified Cx Nom (Body fld) Normal [facility] Comment on above: Performed By: #### 6 11-4 ####DERRICK Hall ([id number])[facility] ([facility])[address] [place], [place] [id number] CBC W Auto Differential pane l (Bld)on 03-31-2025 Basophils (Bld) [#/Vol] 0.05 10*3/uL [facility] Basophils/100 WBC (Bld) 0.5 % 0.0 - 2.0 % [facility] Eosinophils (Bld) [#/Vol] 0.28 10*3/uL [facility] Eosinophils/100 WBC (Bld) 2.7 % 0.0 - 6.0 % [facility] Erythrocyte distribution width (RBC) [Ratio] 12.5 % 11.5 - 14.5 % [facility] Hematocrit (Bld) [Volume fraction] 42.3 % 36.0 - 46.0 % [facility] Hemoglobin (Bld) [Mass/Vol] 12.9 g/dL 12.0 - 16.0 g/dL [facility] Immature granulocytes (Bld) [#/Vol] 0.07 10*3/uL [facility] Immature granulocytes/100 WBC (Bld) 0.7 % 0.0 - 0.9 % [facility] Interpretation and review of laboratory results Abnormal [facility] Lymphocytes (Bld) [#/Vol] 1.23 10*3/uL [facility] Lymphocytes/100 WBC (Bld) 11.9 % 13.0 - 44.0 % [facility] MCH (RBC) [Entitic mass] 30.0 pg 26.0 - 34.0 pg [facility] MCHC (RBC) [Mass/Vol] 30.5 g/dL Low 32.0 - 36.0 g/dL [facility] MCV (RBC) [Entitic vol] 98 fL 80 - 100 fL [facility] Monocytes (Bld) [#/Vol] 0.70 10*3/uL [facility] Monocytes/100 WBC (Bld) 6.8 % 2.0 - 10.0 % [facility] Neutrophils (Bld) [#/Vol] 8.00 10*3/uL High [facility] Neutrophils/100 WBC (Bld) 77.4 % 40.0 - 80.0 % [facility] Nucleated RBC/100 WBC (Bld) [Ratio] 0.0 % [facility] Platelets (Bld) [#/Vol] 185 10*3/uL [facility] RBC (Bld) [#/Vol] 4.30 10*6/uL [facility] WBC (Bld) [#/Vol] 10.3 10*3/uL [facility] Basophils (Bld) [#/Vol] 0.05 x10*3/uL Normal 0.00-0.10 [facility] Comment on above: Performed By: #### 5 7021-8 ####DERRICK Hall ([id number])[facility] ([facility])[address] [place] [address] Basophils/100 WBC (Bld) 0.5 % Normal 0.0-2.0 [facility] Comment on above: Performed By: #### 5 7021-8 ####DERRICK Hall ([id number])[facility] ([facility])[address] [place] [address] Eosinophils (Bld) [#/Vol] 0.28 x10*3/uL Normal 0.00-0.70 [facility] Comment on above: Performed By: #### 5 7021-8 ####DERRICK Hall ([id number])[facility] ([facility])[address] [place] [address] Eosinophils/100 WBC (Bld) 2.7 % Normal 0.0-6.0 [facility] Comment on above: Performed By: #### 5 7021-8 ####DERRICK Hall ([id number])[facility] ([facility])[address] [place] [address] Erythrocyte distribution width (RBC) [Ratio] 12.5 % Normal 11.5-14.5 [facility] Comment on above: Performed By: #### 5 7021-8 ####DERRICK Hall ([id number])[facility] ([facility])[address] [place] [address] Hematocrit (Bld) [Volume fraction] 42.3 % Normal 36.0-46.0 [facility] Comment on above: Performed By: #### 5 7021-8 ####DERRICK Hall ([id number])[facility] ([facility])[address] [place] [address] Hemoglobin (Bld) [Mass/Vol] 12.9 g/dL Normal 12.0-16.0 [facility] Comment on above: Performed By: #### 5 7021-8 ####DERRICK Hall ([id number])[facility] ([facility])[address] [place] [address] Immature granulocytes (Bld) [#/Vol] 0.07 x10*3/uL Normal 0.00-0.70 [facility] Comment on above: Performed By: #### 5 7021-8 ####DERRICK BRAR L ([id number])[facility] ([facility])[address] [place] [address] Immature granulocytes/100 WBC (Bld) 0.7 % Normal 0.0-0.9 [facility] Comment on above: Result Comment: Arlen ture Granulocyte Count (IG) includes promyelocytes, myelocytes and metamyelocytes but does not include bands. Percent differential counts (%) should be interpreted in the context of the absolute cell counts (cells/UL). Performed By: #### 5 7021-8 ####DERRICK Hall ([id number])[facility] ([facility])[address] [place] [address] Lymphocytes (Bld) [#/Vol] 1.23 x10*3/uL Normal 1.20-4.80 [facility] Comment on above: Performed By: #### 5 7021-8 ####DERRICK Hall ([id number])[facility] ([facility])[address]368 [place] [address] Lymphocytes/100 WBC (Bld) 11.9 % Normal 13.0-44.0 [facility] Comment on above: Performed By: #### 5 7021-8 ####DERRICK Hall ([id number])[facility] ([facility])[address] [place] [address] MCH (RBC) [Entitic mass] 30.0 pg Normal 26.0-34.0 [facility] Comment on above: Performed By: #### 5 7021-8 ####DERRICK Hall ([id number])[facility] ([facility])[address] [place] [address] MCHC (RBC) [Mass/Vol] 30.5 g/dL Low 32.0-36.0 [facility] Comment on above: Performed By: #### 5 7021-8 ####DERRICK Hall ([id number])[facility] ([facility])[address] [place] [address] MCV (RBC) [Entitic vol] 98 fL Normal 80-100 [facility] Comment on above: Performed By: #### 5 7021-8 ####DERRICK Hall ([id number])[facility] ([facility])[address] [place] [address] Monocytes (Bld) [#/Vol] 0.70 x10*3/uL Normal 0.10-1.00 [facility] Comment on above: Performed By: #### 5 7021-8 ####DERRICK Hall ([id number])[facility] ([facility])[address] [place] [address] Monocytes/100 WBC (Bld) 6.8 % Normal 2.0-10.0 [facility] Comment on above: Performed By: #### 5 7021-8 ####DERRICK Hall ([id number])[facility] ([facility])[address] [place] [address] Neutrophils (Bld) [#/Vol] 8.00 x10*3/uL High 1.20-7.70 [facility] Comment on above: Result Comment: Perc ent differential counts (%) should be interpreted in the context of the absolute cell counts (cells/uL). Performed By: #### 5 7021-8 ####DERRICK Hall ([id number])[facility] ([facility])[address] [place] [address] Neutrophils/100 WBC (Bld) 77.4 % Normal 40.0-80.0 [facility] Comment on above: Performed By: #### 5 7021-8 ####DERRICK Hall ([id number])[facility] ([facility])[address] [place] [address] Nucleated RBC/100 WBC (Bld) [Ratio] 0.0 /100 WBCs Normal 0.0-0.0 [facility] Comment on above: Performed By: #### 5 7021-8 ####DERRICK Hall ([id number])[facility] ([facility])[address] [place] [address] Platelets (Bld) [#/Vol] 185 x10*3/uL Normal 150-450 [facility] Comment on above: Performed By: #### 5 7021-8 ####DERRICK Hall ([id number])[facility] ([facility])[address] [place] [address] RBC (Bld) [#/Vol] 4.30 x10*6/uL Normal 4.00-5.20 [facility] Comment on above: Performed By: #### 5 7021-8 ####DERRICK Hall ([id number])[facility] ([facility])[address] [place] [address] WBC (Bld) [#/Vol] 10.3 x10*3/uL Normal 4.4-11.3 [facility] Comment on above: Performed By: #### 5 7021-8 ####DERRICK Hall ([id number])[facility] ([facility])[address] [place] [address] Cell count panel (Body fld)o n 03-31-2025 Clarity (Body fld) Turbid Abnormal Clear [facility] Color (Body fld) Yellow Colorless, Straw, Yellow [facility] RBC Auto (Body fld) [#/Vol] 2000 /uL see comment [facility] WBC (Body fld) [#/Vol] 0.264 10*3/uL See Comment [facility] Clarity (Body fld) Turbid Abnormal Clear [facility] Comment on above: Order Comment: Body Fluid cell count reference ranges have not been established by [facility]. Reference ranges provided are based on published references. Performed By: #### 3 4556-1 ####DERRICK Hall ([id number])[facility] ([facility])[address] [place] [address] Color (Body fld) Yellow Normal Colorless, Straw, Yellow [facility] Comment on above: Order Comment: Body Fluid cell count reference ranges have not been established by [facility]. Reference ranges provided are based on published references. Performed By: #### 3 4556-1 ####DERRICK Hall ([id number])[facility] ([facility])[address] [place] [address] RBC Auto (Body fld) [#/Vol] 2000 /uL Normal see comment [facility] Comment on above: Order Comment: Body Fluid cell count reference ranges have not been established by [facility]. Reference ranges provided are based on published references. Result Comment: BAL/ Synovial/Peritoneal/Pericardial/Pleural Fluid Reference Range: 0 cells/uL Performed By: #### 3 4556-1 ####DERRICK Hall ([id number])[facility] ([facility])[address] [place] [address] WBC (Body fld) [#/Vol] 0.264 10*3/uL Normal See Comment [facility] Comment on above: Order Comment: Body Fluid cell count reference ranges have not been established by [facility]. Reference ranges provided are based on published references. Result Comment: BAL/ Synovial/Peritoneal/Pericardial/Pleural Fluid Reference Range: <500 cells/uL Performed By: #### 3 4556-1 ####DERRICK Hall ([id number])[facility] ([facility])[address] [place] [address] Differential panel (Body fld )on 03-31-2025 Cells Counted Total (Body fld) [#] 100 [facility] Eosinophils/100 WBC Manual cnt (Body fld) [facility] Lymphocytes/100 WBC Manual cnt (Body fld) 68 % see comment [facility] Monocytes+Macrophages /100 WBC Manual cnt (Body fld) 21 % see comment [facility] Neutrophils/100 WBC (Body fld) 6 % see comment [facility] Other cells/100 WBC Manual cnt (Body fld) 5 % High - 0 % [facility] Cells Counted Total (Body fld) [#] 100 Normal [facility] Comment on above: Order Comment: Body Fluid cell differential reference ranges have not been established by [facility]. Reference ranges provided are based on published references. Performed By: #### 2 9580-8 ####DERRICK Hall ([id number])[facility] ([facility])[address] [place] [address] Eosinophils/100 WBC Manual cnt (Body fld) Normal [facility] Comment on above: Order Comment: Body Fluid cell differential reference ranges have not been established by [facility]. Reference ranges provided are based on published references. Result Comment: BAL Reference Range: <1% Performed By: #### 2 9580-8 ####DERRICK ALVESTZER L ([id number])[facility] ([facility])[address] [place] [address] Lymphocytes/100 WBC Manual cnt (Body fld) 68 % Normal see comment [facility] Comment on above: Order Comment: Body Fluid cell differential reference ranges have not been established by [facility]. Reference ranges provided are based on published references. Result Comment: Syno vial/Peritoneal/Pericardial/Pleural Fluid Reference Range: <75%BAL Reference Range: <10% Performed By: #### 2 9580-8 ####DERRICK CHOUDHARYMOTZER L ([id number])[facility] ([facility])[address] [place] [address] Monocytes+Macrophages /100 WBC Manual cnt (Body fld) 21 % Normal see comment [facility] Comment on above: Order Comment: Body Fluid cell differential reference ranges have not been established by [facility]. Reference ranges provided are based on published references. Result Comment: Syno vial/Peritoneal/Pericardial/Pleural Fluid Reference Range: <70%BAL Reference Range: 87-100% Performed By: #### 2 9580-8 ####DERRICK SCHMOTZER L ([id number])[facility] ([facility])[address] [facility] [place] [address] Neutrophils/100 WBC (Body fld) 6 % Normal see comment [facility] Comment on above: Order Comment: Body Fluid cell differential reference ranges have not been established by [facility]. Reference ranges provided are based on published references. Result Comment: Syno vial/Peritoneal/Pericardial/Pleural Fluid Reference Range: <25%BAL Reference Range: <2% Performed By: #### 2 9580-8 ####DERRICK SCHMOTZER L ([id number])[facility] ([facility])[address] [facility] [place] [address] Other cells/100 WBC Manual cnt (Body fld) 5 % High not established [facility] Comment on above: Order Comment: Body Fluid cell differential reference ranges have not been established by [facility]. Reference ranges provided are based on published references. Performed By: #### 2 9580-8 ####DERRICK CHOUDHARYMOTZER L ([id number])[facility] ([facility])[address] [place] [address] Glucoseon 03-31-2025 Glucose (Body fld) [Mass/Vol] 204 mg/dL Normal Not established [facility] Comment on above: Order Comment: The p erformance characteristics of this test have been validated on peritoneal/ascites, pleural, pericardial, drain, dialysate and liver/pancreatic cyst fluid by the [facility]. This test has not been approved by the FDA; however, such approval is not necessary. Performed By: #### 2 344-0 ####DERRICK Hall ([id number])[facility] ([facility])[address] [place] [address] Glucose Test strip manual (B ld) [Mass/Vol]on 03-31-2025 Glucose [Mass/Vol] 209 mg/dL High 74 - 99 mg/dL [facility] Interpretation and review of laboratory results Abnormal [facility] Glucose [Mass/Vol] 209 mg/dL High 74-99 [facility] Comment on above: Performed By: #### 2 341-6 ####DERRICK Hall ([id number])[facility] ([facility])[address] [place] [address] Glucose [Mass/Vol] 171 mg/dL High 74 - 99 mg/dL [facility] Interpretation and review of laboratory results Abnormal [facility] Glucose [Mass/Vol] 171 mg/dL High 74-99 [facility] Comment on above: Performed By: #### 2 341-6 ####DERRICK BRAR L ([id number])[facility] ([facility])[address] [place] [address] Glucose [Mass/Vol] 195 mg/dL High 74 - 99 mg/dL [facility] Interpretation and review of laboratory results Abnormal [facility] Glucose [Mass/Vol] 195 mg/dL High 74-99 [facility] Comment on above: Performed By: #### 2 341-6 ####DERRICK BRAR L ([id number])[facility] ([facility])[address] [place] [address] Glucose [Mass/Vol] 148 mg/dL High 74 - 99 mg/dL [facility] Interpretation and review of laboratory results Abnormal [facility] Glucose [Mass/Vol] 148 mg/dL High 74-99 [facility] Comment on above: Performed By: #### 2 341-6 ####DERRICK Hall ([id number])[facility] ([facility])[address] [place] [address] Glucose [Mass/Vol] 152 mg/dL High 74 - 99 mg/dL [facility] Interpretation and review of laboratory results Abnormal [facility] Glucose [Mass/Vol] 152 mg/dL High 74-99 [facility] Comment on above: Performed By: #### 2 341-6 ####DERRICK Hall ([id number])[facility] ([facility])[address] [place] [address] Glucose [Mass/Vol] 188 mg/dL High 74 - 99 mg/dL [facility] Interpretation and review of laboratory results Abnormal [facility] Glucose [Mass/Vol] 188 mg/dL High 74-99 [facility] Comment on above: Performed By: #### 2 341-6 ####DERRICK Hall ([id number])[facility] ([facility])[address] [place] [address] Glucose, Body Fluidon 2024 Glucose (Body fld) [Mass/Vol] 204 mg/dL Not established [facility] Guidance for thoracentesis o f Cheston 03-31-2025 Radiology Study observation (narrative) [facility] Work Phone: Lactate Dehydrogenaseon 03-10 [facility]DH Lactate to pyruvate reaction [Catalytic activity/Vol] 198 U/L 84 - 246 U/L [facility] Lactate Dehydrogenase, Body Fluidon 03-31-2025 LDH Lactate to pyruvate reaction (Body fld) [Catalytic activity/Vol] 193 U/L Not established. [facility] Lactate dehydrogenaseon 03-10 LDH Lactate to pyruvate reaction (Body fld) [Catalytic activity/Vol] 193 U/L Normal Not established. [facility] Comment on above: Order Comment: The p erformance characteristics of this test have been validated on peritoneal/ascites,pleural, pericardial and drain fluid by the performing [facility] laboratory. This test has not been approved by the FDA; however, such approval is not necessary. Performed By: #### 1 4803-1 ####DERRICK Hall ([id number])[facility] ([facility])[address] [place] [address] LDH Lactate to pyruvate reaction [Catalytic activity/Vol] 198 U/L Normal 84-246 [facility] Comment on above: Performed By: #### 1 4804-9 ####DERRICK Hall ([id number])[facility] ([facility])[address] [place] [address] Magnesiumon 03-31-2025 Magnesium [Mass/Vol] 1.99 mg/dL 1.60 - 2.40 mg/dL [facility] Magnesium [Mass/Vol] 1.99 mg/dL Normal 1.60-2.40 [facility] Comment on above: Performed By: #### 1 9123-9 ####DERRICK Hall ([id number])[facility] ([facility])[address] [place] [address] WHOLE BODYon 03-[address] WHOLE BODY Normal [facility] No Panel Informationon 03-31 Interpretation and review of laboratory results Abnormal [facility] Interpretation and review of laboratory results Normal [facility] Interpretation and review of laboratory results Abnormal [facility] Non-observer electrical prospecting cytology studyon Non-gynecological cytology method study Normal [facility] Pathologist review Darío (Unsp spec) [Interp]on 03-31-2025 PATH REVIEW-CELL CT,FLUID Predominance of chronic inflammatory cells in a hemorrhagic background. No malignant cells identified. No organism identified. Cells identified as unclassified are reactive mesothelial cells. Normal [facility] Comment on above: Result Comment: Elec tronically signed out by Lois Zambrano MD on 04/01/25 at 2:03 PM.By the signature on this report, the individual or group listed as making the Final Interpretation/Diagnosis certifies that they have reviewed this case. Performed By: #### 5 9465-5 ####DERRICK Hall ([id number])[facility] ([facility])[address] [place] [address] Proteinon 03-31-2025 Protein (Body fld) [Mass/Vol] 2.4 g/dL Normal Not established [facility] Comment on above: Order Comment: The p erformance characteristics of this test have been validated on peritoneal/ascites,pleural, pericardial, drain, and liver/pancreatic cyst fluid by the [facility]. This test has not been approved by the FDA; however, such approval is not necessary. Performed By: #### 2 881-1 ####DERRICK Hall ([id number])[facility] ([facility])[address] [place] [address] Protein [Mass/Vol] 5.5 g/dL Low 6.4-8.2 [facility] Comment on above: Performed By: #### 2 885-2 ####DERRICK Hall ([id number])[facility] ([facility])[address] [place] [address] Protein, Totalon 03-31-2025 Protein [Mass/Vol] 5.5 g/dL Low 6.4 - 8.2 g/dL [facility] Protein, Total, Body Fluidon 03-31-2025 Protein (Body fld) [Mass/Vol] 2.4 g/dL Not established [facility] Renal function 2000 panelon 03-31-2025 Albumin BCP dye [Mass/Vol] 3.0 g/dL Low 3.4 - 5.0 g/dL [facility] Anion gap [Moles/Vol] 12 mmol/L 10 - 2 0 mmol/L [facility] Calcium [Mass/Vol] 9.2 mg/dL 8.6 - 10. 6 mg/dL [facility] Chloride [Moles/Vol] 99 mmol/L 98 - 10 7 mmol/L [facility] CO2 [Moles/Vol] 30 mmol/L 21 - 32 mmol/L [facility] Creatinine [Mass/Vol] 0.54 mg/dL 0.50 - 1.05 mg/dL [facility] eGFR - PINF [facility] Glucose [Mass/Vol] 194 mg/dL High 74 - 99 mg/dL [facility] Interpretation and review of laboratory results Abnormal [facility] Phosphate [Mass/Vol] 2.5 mg/dL 2.5 - 4 .9 mg/dL [facility] Potassium [Moles/Vol] 4.1 mmol/L 3.5 - 5.3 mmol/L [facility] Sodium [Moles/Vol] 137 mmol/L 136 - 145 mmol/L [facility] Urea nitrogen [Mass/Vol] 10 mg/dL 6 - 23 mg/dL [facility] Albumin BCP dye [Mass/Vol] 3.0 g/dL Low 3.4-5.0 [facility] Comment on above: Performed By: #### 2 4362-6 ####DERRICK Hall ([id number])[facility] ([facility])[address] [place] [address] Anion gap [Moles/Vol] 12 mmol/L Normal 10-20 [facility] Comment on above: Performed By: #### 2 4362-6 ####DERRICK Hall ([id number])[facility] ([facility])[address] [place] [address] Calcium [Mass/Vol] 9.2 mg/dL Normal 8.6-10.6 [facility] Comment on above: Performed By: #### 2 4362-6 ####DERRICK Hall ([id number])[facility] ([facility])[address] [place] [address] Chloride [Moles/Vol] 99 mmol/L Normal 98-107 [facility] Comment on above: Performed By: #### 2 4362-6 ####DERRICK Hall ([id number])[facility] ([facility])[address] [place] [address] CO2 [Moles/Vol] 30 mmol/L Normal 21-32 [facility] Comment on above: Performed By: #### 2 4362-6 ####DERRICK Hall ([id number])[facility] ([facility])[address] [place] [address] Creatinine [Mass/Vol] 0.54 mg/dL Normal 0.50-1.05 [facility] Comment on above: Performed By: #### 2 4362-6 ####DERRICK BRAR L ([id number])[facility] ([facility])[address] [place] [address] Glomerular filtration rate >90 Normal >60 [facility] Comment on above: Result Comment: Calc ulations of estimated GFR are performed using the 2020 CKD-EPI Study Refit equation without the race variable for the IDMS-Traceable creatinine methods.https://jasn.asnjournals.org/content/early/ N.7233067648 Performed By: #### 2 4362-6 ####DERRICK Hall ([id number])[facility] ([facility])[address] [place] [address] Glucose [Mass/Vol] 194 mg/dL High 74-99 [facility] Comment on above: Performed By: #### 2 4362-6 ####DERRICK Hall ([id number])[facility] ([facility])[address] [place] [address] Phosphate [Mass/Vol] 2.5 mg/dL Normal 2.5-4.9 [facility] Comment on above: Performed By: #### 2 4362-6 ####DERRICK BRAR L ([id number])[facility] ([facility])[address] [place] [address] Potassium [Moles/Vol] 4.1 mmol/L Normal 3.5-5.3 [facility] Comment on above: Performed By: #### 2 4362-6 ####DERRICK Hall ([id number])[facility] ([facility])[address] [place] [address] Sodium [Moles/Vol] 137 mmol/L Normal 136-145 [facility] Comment on above: Performed By: #### 2 4362-6 ####DERRICK Hall ([id number])[facility] ([facility])[address] [place] [address] Urea nitrogen [Mass/Vol] 10 mg/dL Normal 6-23 [facility] Comment on above: Performed By: #### 2 4362-6 ####DERRICK Hall ([id number])[facility] ([facility])[address] [place] [address] Albumin BCP dye [Mass/Vol] 2.9 g/dL Low 3.4 - 5.0 g/dL [facility] Anion gap [Moles/Vol] 12 mmol/L 10 - 2 0 mmol/L [facility] Calcium [Mass/Vol] 9.1 mg/dL 8.6 - 10. 6 mg/dL [facility] Chloride [Moles/Vol] 102 mmol/L 98 - 10 7 mmol/L [facility] CO2 [Moles/Vol] 29 mmol/L 21 - 32 mmol/L [facility] Creatinine [Mass/Vol] 0.41 mg/dL Low 0.50 - 1.05 mg/dL [facility] eGFR - PINF [facility] Glucose [Mass/Vol] 156 mg/dL High 74 - 99 mg/dL [facility] Phosphate [Mass/Vol] 2.8 mg/dL 2.5 - 4 .9 mg/dL [facility] Potassium [Moles/Vol] 3.8 mmol/L 3.5 - 5.3 mmol/L [facility] Sodium [Moles/Vol] 139 mmol/L 136 - 145 mmol/L [facility] Urea nitrogen [Mass/Vol] 11 mg/dL 6 - 23 mg/dL [facility] Albumin BCP dye [Mass/Vol] 2.9 g/dL Low 3.4-5.0 [facility] Comment on above: Performed By: #### 2 4362-6 ####DERRICK Hall ([id number])[facility] ([facility])[address] [place] [address] Anion gap [Moles/Vol] 12 mmol/L Normal 10-20 [facility] Comment on above: Performed By: #### 2 4362-6 ####DERRICK Hall ([id number])[facility] ([facility])[address] [place] [address] Calcium [Mass/Vol] 9.1 mg/dL Normal 8.6-10.6 [facility] Comment on above: Performed By: #### 2 4362-6 ####DERRICK Hall ([id number])[facility] ([facility])[address] [place] [address] Chloride [Moles/Vol] 102 mmol/L Normal 98-107 [facility] Comment on above: Performed By: #### 2 4362-6 ####DERRICK Hall ([id number])[facility] ([facility])[address] [place] [address] CO2 [Moles/Vol] 29 mmol/L Normal 21-32 [facility] Comment on above: Performed By: #### 2 4362-6 ####DERRICK Hall ([id number])[facility] ([facility])[address] [place] [address] Creatinine [Mass/Vol] 0.41 mg/dL Low 0.50-1.05 [facility] Comment on above: Performed By: #### 2 4362-6 ####DERRICK Hall ([id number])[facility] ([facility])[address] [place] [address] Glomerular filtration rate >90 Normal >60 [facility] Comment on above: Result Comment: Calc ulations of estimated GFR are performed using the 2020 CKD-EPI Study Refit equation without the race variable for the IDMS-Traceable creatinine methods.https://jasn.asnjournals.org/content// N.3440694507 Performed By: #### 2 4362-6 ####DERRICK Hall ([id number])[facility] ([facility])[address] [place] [address] Glucose [Mass/Vol] 156 mg/dL High 74-99 [facility] Comment on above: Performed By: #### 2 4362-6 ####DERRICK Hall ([id number])[facility] ([facility])[address] [place] [address] Phosphate [Mass/Vol] 2.8 mg/dL Normal 2.5-4.9 [facility] Comment on above: Performed By: #### 2 4362-6 ####DERRICK Hall ([id number])[facility] ([facility])[address] [place] [address] Potassium [Moles/Vol] 3.8 mmol/L Normal 3.5-5.3 [facility] Comment on above: Performed By: #### 2 4362-6 ####DERRICK Hall ([id number])[facility] ([facility])[address] [place] [address] Sodium [Moles/Vol] 139 mmol/L Normal 136-145 [facility] Comment on above: Performed By: #### 2 4362-6 ####DERRICK BRAR L ([id number])[facility] ([facility])[address] [place] [address] Urea nitrogen [Mass/Vol] 11 mg/dL Normal 6-23 [facility] Comment on above: Performed By: #### 2 4362-6 ####DERRICK BRAR L ([id number])[facility] ([facility])[address] [facility] [place] [address] US THORACENTESISon 5 US THORACENTESIS Normal [facility] XR CHEST 1 VIEWon 03-31-2025 XR CHEST 1 VIEW Normal [facility] XR Chest Single viewon 03-31 Radiology Study observation (narrative) [facility] Work Phone: UH MMODAL UH MMODAL [facility] Work Phone: [facility] Work Phone: Radiology Study observation (narrative) [facility] Work Phone: pHon 03-31-2025 pH (Body fld) 7.44 Normal See Below [facility] Comment on above: Order Comment: Pleur al [...] Performed By: #### 2 748-2 ####DERRICK Hall ([id number])[facility] ([facility])[address] [place] [address] pH (Body fld)Ordered By: Ashia Figueroa on 03-31-2025 [facility] pH, Body FluidOrdered By: Cy nthimanish Figueroa on 03-31-2025 pH (Body fld) 7.44 [pH] See Below [facility] CBC W Auto Differential pane l (Bld)on 03-30-2025 Basophils (Bld) [#/Vol] 0.04 10*3/uL [facility] Basophils/100 WBC (Bld) 0.4 % 0.0 - 2.0 % [facility] Eosinophils (Bld) [#/Vol] 0.30 10*3/uL [facility] Eosinophils/100 WBC (Bld) 3.0 % 0.0 - 6.0 % [facility] Erythrocyte distribution width (RBC) [Ratio] 12.5 % 11.5 - 14.5 % [facility] Hematocrit (Bld) [Volume fraction] 40.0 % 36.0 - 46.0 % [facility] Hemoglobin (Bld) [Mass/Vol] 12.8 g/dL 12.0 - 16.0 g/dL [facility] Immature granulocytes (Bld) [#/Vol] 0.06 10*3/uL [facility] Immature granulocytes/100 WBC (Bld) 0.6 % 0.0 - 0.9 % [facility] Interpretation and review of laboratory results Abnormal [facility] Lymphocytes (Bld) [#/Vol] 1.19 10*3/uL Low [facility] Lymphocytes/100 WBC (Bld) 11.7 % 13.0 - 44.0 % [facility] MCH (RBC) [Entitic mass] 31.4 pg 26.0 - 34.0 pg [facility] MCHC (RBC) [Mass/Vol] 32.0 g/dL 32.0 - 36.0 g/dL [facility] MCV (RBC) [Entitic vol] 98 fL 80 - 100 fL [facility] Monocytes (Bld) [#/Vol] 0.80 10*3/uL [facility] Monocytes/100 WBC (Bld) 7.9 % 2.0 - 10.0 % [facility] Neutrophils (Bld) [#/Vol] 7.76 10*3/uL High [facility] Neutrophils/100 WBC (Bld) 76.4 % 40.0 - 80.0 % [facility] Nucleated RBC/100 WBC (Bld) [Ratio] 0.0 % [facility] Platelets (Bld) [#/Vol] 201 10*3/uL [facility] [employer] RBC (Bld) [#/Vol] 4.08 10*6/uL [facility] WBC (Bld) [#/Vol] 10.2 10*3/uL [facility] Basophils (Bld) [#/Vol] 0.04 x10*3/uL Normal 0.00-0.10 [facility] Comment on above: Performed By: #### 5 7021-8 ####DERRICK Hall ([id number])[facility] ([facility])[id number] [place] [address] 93425 Basophils/100 WBC (Bld) 0.4 % Normal 0.0-2.0 [facility] Comment on above: Performed By: #### 5 7021-8 ####DERRICK Hall ([id number])[facility] ([facility])[id number] [place] [address] 73089 Eosinophils (Bld) [#/Vol] 0.30 x10*3/uL Normal 0.00-0.70 [facility] Comment on above: Performed By: #### 5 7021-8 ####DERRICK Hall ([id number])[facility] ([facility])[address] [place] [address] Eosinophils/100 WBC (Bld) 3.0 % Normal 0.0-6.0 [facility] Comment on above: Performed By: #### 5 7021-8 ####DERRICK Hall ([id number])[facility] ([facility])[id number] [place] [address] 68643 Erythrocyte distribution width (RBC) [Ratio] 12.5 % Normal 11.5-14.5 [facility] Comment on above: Performed By: #### 5 7021-8 ####DERRICK Hall ([id number])[facility] ([facility])[address] [place] [address] Hematocrit (Bld) [Volume fraction] 40.0 % Normal 36.0-46.0 [facility] Comment on above: Performed By: #### 5 7021-8 ####DERRICK Hall ([id number])[facility] ([facility])[address] [place] [address] Hemoglobin (Bld) [Mass/Vol] 12.8 g/dL Normal 12.0-16.0 [facility] Comment on above: Performed By: #### 5 7021-8 ####DERRICK Hall ([id number])[facility] ([facility])[address] [place] [address]30 Immature granulocytes (Bld) [#/Vol] 0.06 x10*3/uL Normal 0.00-0.70 [facility] Comment on above: Performed By: #### 5 7021-8 ####DERRICK Hall ([id number])[facility] ([facility])[id number] [place] [address] 99098 Immature granulocytes/100 WBC (Bld) 0.6 % Normal 0.0-0.9 [facility] Comment on above: Result Comment: Arlen ture Granulocyte Count (IG) includes promyelocytes, myelocytes and metamyelocytes but does not include bands. Percent differential counts (%) should be interpreted in the context of the absolute cell counts (cells/UL). Performed By: #### 5 7021-8 ####DERRICK Hall ([id number])[facility] ([facility])[address] [place] [address] Lymphocytes (Bld) [#/Vol] 1.19 x10*3/uL Low 1.20-4.80 [facility] Comment on above: Performed By: #### 5 7021-8 ####DERRICK Hall ([id number])[facility] ([facility])[address] [place] [address] Lymphocytes/100 WBC (Bld) 11.7 % Normal 13.0-44.0 [facility] Comment on above: Performed By: #### 5 7021-8 ####DERRICK aHll ([id number])[facility] ([facility])[address] [place] [address] MCH (RBC) [Entitic mass] 31.4 pg Normal 26.0-34.0 [facility] Comment on above: Performed By: #### 5 7021-8 ####DERRICK Hall ([id number])[facility] ([facility])[address] [place] [address] MCHC (RBC) [Mass/Vol] 32.0 g/dL Normal 32.0-36.0 [facility] Comment on above: Performed By: #### 5 7021-8 ####DERRICK Hall ([id number])[facility] ([facility])[address] [place] [address] MCV (RBC) [Entitic vol] 98 fL Normal 80-100 [facility] Comment on above: Performed By: #### 5 7021-8 ####DERRICK Hall ([id number])[facility] ([facility])[address] [place] [address] Monocytes (Bld) [#/Vol] 0.80 x10*3/uL Normal 0.10-1.00 [facility] Comment on above: Performed By: #### 5 7021-8 ####DERRICK Hall ([id number])[facility] ([facility])[address] [place] [address] Monocytes/100 WBC (Bld) 7.9 % Normal 2.0-10.0 [facility] Comment on above: Performed By: #### 5 7021-8 ####DERRICK BRAR L ([id number])[facility] ([facility])[address] [place] [address] Neutrophils (Bld) [#/Vol] 7.76 x10*3/uL High 1.20-7.70 [facility] Comment on above: Result Comment: Perc ent differential counts (%) should be interpreted in the context of the absolute cell counts (cells/uL). Performed By: #### 5 7021-8 ####DERRICK Hall ([id number])[facility] ([facility])[address] [place] [address] Neutrophils/100 WBC (Bld) 76.4 % Normal 40.0-80.0 [facility] Comment on above: Performed By: #### 5 7021-8 ####DERRICK Hall ([id number])[facility] ([facility])[address] [place] [address] 45573 Nucleated RBC/100 WBC (Bld) [Ratio] 0.0 /100 WBCs Normal 0.0-0.0 [facility] Comment on above: Performed By: #### 5 7021-8 ####DERRICK Hall ([id number])[facility] ([facility])[address] [place] [address] 10617 Platelets (Bld) [#/Vol] 201 x10*3/uL Normal 150-450 [facility] Comment on above: Performed By: #### 5 7021-8 ####DERRICK Hall ([id number])[facility] ([facility])[address] [place] [address] RBC (Bld) [#/Vol] 4.08 x10*6/uL Normal 4.00-5.20 [facility] Comment on above: Performed By: #### 5 7021-8 ####DERRICK Hall ([id number])[facility] ([facility])[address] [place] [address] 05430 WBC (Bld) [#/Vol] 10.2 x10*3/uL Normal 4.4-11.3 [facility] Comment on above: Performed By: #### 5 7021-8 ####DERRICK BRAR L ([id number])[facility] ([facility])[address] [place] [address] 15566 CBC panel Auto (Bld)on 03-30 Erythrocyte distribution width (RBC) [Ratio] 12.6 % 11.5 - 14.5 % [facility] Hematocrit (Bld) [Volume fraction] 41.9 % 36.0 - 46.0 % [facility] Hemoglobin (Bld) [Mass/Vol] 13.3 g/dL 12.0 - 16.0 g/dL [facility] Interpretation and review of laboratory results Abnormal [facility] MCH (RBC) [Entitic mass] 30.9 pg 26.0 - 34.0 pg [facility] MCHC (RBC) [Mass/Vol] 31.7 g/dL Low 32.0 - 36.0 g/dL [facility] MCV (RBC) [Entitic vol] 97 fL 80 - 100 fL [facility] Nucleated RBC/100 WBC (Bld) [Ratio] 0.0 % [facility] Platelets (Bld) [#/Vol] 222 10*3/uL [facility] RBC (Bld) [#/Vol] 4.30 10*6/uL [facility] WBC (Bld) [#/Vol] 10.8 10*3/uL [facility] Erythrocyte distribution width (RBC) [Ratio] 12.6 % Normal 11.5-14.5 [facility] Comment on above: Performed By: #### 5 8410-2 ####DERRICK Hall ([id number])[facility] ([facility])[address] [place] [address] 63313 Hematocrit (Bld) [Volume fraction] 41.9 % Normal 36.0-46.0 [facility] Comment on above: Performed By: #### 5 8410-2 ####DERRICK Hall ([id number])[facility] ([facility])[address] [place] [address] Hemoglobin (Bld) [Mass/Vol] 13.3 g/dL Normal 12.0-16.0 [facility] Comment on above: Performed By: #### 5 8410-2 ####DERRICK Hall ([id number])[facility] ([facility])[address] [place] [address] MCH (RBC) [Entitic mass] 30.9 pg Normal 26.0-34.0 [facility] Comment on above: Performed By: #### 5 8410-2 ####DERRICK Hall ([id number])[facility] ([facility])[address] [place] [address] MCHC (RBC) [Mass/Vol] 31.7 g/dL Low 32.0-36.0 [facility] Comment on above: Performed By: #### 5 8410-2 ####DERRICK Hall ([id number])[facility] ([facility])[address] [place] [address] MCV (RBC) [Entitic vol] 97 fL Normal 80-100 [facility] Comment on above: Performed By: #### 5 8410-2 ####DERRICK Hall ([id number])[facility] ([facility])[address] [place] [address] Nucleated RBC/100 WBC (Bld) [Ratio] 0.0 /100 WBCs Normal 0.0-0.0 [facility] Comment on above: Performed By: #### 5 8410-2 ####DERRICK Hall ([id number])[facility] ([facility])[address] [place] [address] Platelets (Bld) [#/Vol] 222 x10*3/uL Normal 150-450 [facility] Comment on above: Performed By: #### 5 8410-2 ####DERRICK Hall ([id number])[facility] ([facility])[address] [place] [address] RBC (Bld) [#/Vol] 4.30 x10*6/uL Normal 4.00-5.20 [facility] Comment on above: Performed By: #### 5 8410-2 ####DERRICK Hall ([id number])[facility] ([facility])[address] [place] [address] WBC (Bld) [#/Vol] 10.8 x10*3/uL Normal 4.4-11.3 [facility] Comment on above: Performed By: #### 5 8410-2 ####DERRICK Hall ([id number])[facility] ([facility])[address] [place] [address] 81787 Glucose Test strip manual (B ld) [Mass/Vol]on 03-30-2025 Glucose [Mass/Vol] 216 mg/dL High 74 - 99 mg/dL [facility] Interpretation and review of laboratory results Abnormal [facility] Glucose [Mass/Vol] 216 mg/dL High 74-99 [facility] Comment on above: Performed By: #### 2 341-6 ####DERRICK Hall ([id number])[facility] ([facility])[address] [place] [address] 51456 Glucose [Mass/Vol] 191 mg/dL High 74 - 99 mg/dL [facility] Interpretation and review of laboratory results Abnormal [facility] Glucose [Mass/Vol] 191 mg/dL High 74-99 [facility] Comment on above: Performed By: #### 2 341-6 ####DERRICK Hall ([id number])[facility] ([facility])[address] [place] [address] 30983 Glucose [Mass/Vol] 208 mg/dL High 74 - 99 mg/dL [facility] Interpretation and review of laboratory results Abnormal [facility] Glucose [Mass/Vol] 208 mg/dL High 74-99 [facility] Comment on above: Performed By: #### 2 341-6 ####DERRICK Hall ([id number])[facility] ([facility])[address] [place] [address] 95780 Glucose [Mass/Vol] 252 mg/dL High 74 - 99 mg/dL [facility] Interpretation and review of laboratory results Abnormal [facility] Glucose [Mass/Vol] 252 mg/dL High 74-99 [facility] Comment on above: Performed By: #### 2 341-6 ####DERRICK Hall ([id number])[facility] ([facility])[address] [place] [address] 18998 Glucose [Mass/Vol] 266 mg/dL High 74 - 99 mg/dL [facility] Interpretation and review of laboratory results Abnormal [facility] Glucose [Mass/Vol] 266 mg/dL High 74-99 [facility] Comment on above: Performed By: #### 2 341-6 ####DERRICK Hall ([id number])[facility] ([facility])[address] [place] [address] 19359 Glucose [Mass/Vol] 190 mg/dL High 74 - 99 mg/dL [facility] Interpretation and review of laboratory results Abnormal [facility] Glucose [Mass/Vol] 190 mg/dL High 74-99 [facility] Comment on above: Performed By: #### 2 341-6 ####DERRICK Hall ([id number])[facility] ([facility])[address] [place] [address] 04196 Glucose [Mass/Vol] 189 mg/dL High 74 - 99 mg/dL [facility] Interpretation and review of laboratory results Abnormal [facility] Glucose [Mass/Vol] 189 mg/dL High 74-99 [facility] Comment on above: Performed By: #### 2 341-6 ####DERRICK Hall ([id number])[facility] ([facility])[address] [place] [address] 64104 Magnesiumon 03-30-2025 Magnesium [Mass/Vol] 2.06 mg/dL 1.60 - 2.40 mg/dL [facility] Magnesium [Mass/Vol] 2.06 mg/dL Normal 1.60-2.40 [facility] Comment on above: Performed By: #### 1 9123-9 ####DERRICK Hall ([id number])[facility] ([facility])[address] [place] [address] 93015 Magnesium [Mass/Vol]on 03-30 Interpretation and review of laboratory results Normal [facility] No Panel Informationon 03-30 These images are not reportable by radiology and will not be interpreted by Radiologists. IMAGING [facility] RAD ONC CT SIM IMAGES ONLYon 03-30-[address] SIM IMAGES ONLY These images are not reportable by radiology and will not be interpreted by Radiologists. Normal [facility] Renal function 2000 panelon 03-30-2025 Albumin BCP dye [Mass/Vol] 3.1 g/dL Low 3.4 - 5.0 g/dL [facility] Anion gap [Moles/Vol] 10 mmol/L 10 - 2 0 mmol/L [facility] Calcium [Mass/Vol] 9.6 mg/dL 8.6 - 10. 6 mg/dL [facility] Chloride [Moles/Vol] 97 mmol/L Low 98 - 10 7 mmol/L [facility] CO2 [Moles/Vol] 33 mmol/L High 21 - 32 mmol/L [facility] Creatinine [Mass/Vol] 0.48 mg/dL Low 0.50 - 1.05 mg/dL [facility] eGFR - PINF [facility] Glucose [Mass/Vol] 133 mg/dL High 74 - 99 mg/dL [facility] Interpretation and review of laboratory results Abnormal [facility] Phosphate [Mass/Vol] 2.0 mg/dL Low 2.5 - 4 .9 mg/dL [facility] Potassium [Moles/Vol] 3.6 mmol/L 3.5 - 5.3 mmol/L [facility] Sodium [Moles/Vol] 136 mmol/L 136 - 145 mmol/L [facility] Urea nitrogen [Mass/Vol] 13 mg/dL 6 - 23 mg/dL [facility] Albumin BCP dye [Mass/Vol] 3.1 g/dL Low 3.4-5.0 [facility] Comment on above: Performed By: #### 2 4362-6 ####DERRICK Hall ([id number])[facility] ([facility])[address] [place] [address] Anion gap [Moles/Vol] 10 mmol/L Normal 10-20 [facility] Comment on above: Performed By: #### 2 4362-6 ####DERRICK Hall ([id number])[facility] ([facility])[address] [place] [address] Calcium [Mass/Vol] 9.6 mg/dL Normal 8.6-10.6 [facility] Comment on above: Performed By: #### 2 4362-6 ####DERRICK BRAR L ([id number])[facility] ([facility])[address] [place] [address] Chloride [Moles/Vol] 97 mmol/L Low 98-107 [facility] Comment on above: Performed By: #### 2 4362-6 ####DERRICK BRAR L ([id number])[facility] ([facility])[address] [place] [address] CO2 [Moles/Vol] 33 mmol/L High 21-32 [facility] Comment on above: Performed By: #### 2 4362-6 ####DERRICK BRAR L ([id number])[facility] ([facility])[address] [place] [address] Creatinine [Mass/Vol] 0.48 mg/dL Low 0.50-1.05 [facility] Comment on above: Performed By: #### 2 4362-6 ####DERRICK BRAR L ([id number])[facility] ([facility])[address] [place] [address] GFR/1.73 sq M.predicted MDRD (S/P/Bld) [Vol rate/Area] mL/min/{1.73_m2} Normal >60 [facility] Comment on above: Result Comment: Calc ulations of estimated GFR are performed using the 2020 CKD-EPI Study Refit equation without the race variable for the IDMS-Traceable creatinine methods.https://jasn.asnjournals.org/content/early/ N.1733543383 Performed By: #### 2 4362-6 ####DERRICK Hall ([id number])[facility] ([facility])[address] [place] [address] Glucose [Mass/Vol] 133 mg/dL High 74-99 [facility] Comment on above: Performed By: #### 2 4362-6 ####DERRICK Hall ([id number])[facility] ([facility])[address]47 [place] [address] Phosphate [Mass/Vol] 2.0 mg/dL Low 2.5-4.9 [facility] Comment on above: Performed By: #### 2 4362-6 ####DERRICK Hall ([id number])[facility] ([facility])[address] [place] [address] Potassium [Moles/Vol] 3.6 mmol/L Normal 3.5-5.3 [facility] Comment on above: Performed By: #### 2 4362-6 ####DERRICK Hall ([id number])[facility] ([facility])[address] [place] [address] Sodium [Moles/Vol] 136 mmol/L Normal 136-145 [facility] Comment on above: Performed By: #### 2 4362-6 ####DERRICK Hall ([id number])[facility] ([facility])[address] [place] [address] Urea nitrogen [Mass/Vol] 13 mg/dL Normal 6-23 [facility] Comment on above: Performed By: #### 2 4362-6 ####DERRICK Hall ([id number])[facility] ([facility])[address] [place] [address] Albumin BCP dye [Mass/Vol] 2.9 g/dL Low 3.4 - 5.0 g/dL [facility] Anion gap [Moles/Vol] 11 mmol/L 10 - 2 0 mmol/L [facility] Calcium [Mass/Vol] 9.0 mg/dL 8.6 - 10. 6 mg/dL [facility] Chloride [Moles/Vol] 98 mmol/L 98 - 10 7 mmol/L [facility] CO2 [Moles/Vol] 32 mmol/L 21 - 32 mmol/L [facility] Creatinine [Mass/Vol] 0.42 mg/dL Low 0.50 - 1.05 mg/dL [facility] eGFR - PINF [facility] Glucose [Mass/Vol] 167 mg/dL High 74 - 99 mg/dL [facility] Interpretation and review of laboratory results Abnormal [facility] Phosphate [Mass/Vol] 3.0 mg/dL 2.5 - 4 .9 mg/dL [facility] Potassium [Moles/Vol] 3.1 mmol/L Low 3.5 - 5.3 mmol/L [facility] Sodium [Moles/Vol] 138 mmol/L 136 - 145 mmol/L [facility] Urea nitrogen [Mass/Vol] 15 mg/dL 6 - 23 mg/dL [facility] Albumin BCP dye [Mass/Vol] 2.9 g/dL Low 3.4-5.0 [facility] Comment on above: Performed By: #### 2 4362-6 ####DERRICK Hall ([id number])[facility] ([facility])[address] [place] [address] Anion gap [Moles/Vol] 11 mmol/L Normal 10-20 [facility] Comment on above: Performed By: #### 2 4362-6 ####DERRICK BRAR L ([id number])[facility] ([facility])[address] [place] [address] Calcium [Mass/Vol] 9.0 mg/dL Normal 8.6-10.6 [facility] Comment on above: Performed By: #### 2 4362-6 ####DERRICK CHOUDHARYMOTZCARIDAD L ([id number])[facility] ([facility])[address] [place] [address] Chloride [Moles/Vol] 98 mmol/L Normal 98-107 [facility] Comment on above: Performed By: #### 2 4362-6 ####DERRICK BRAR L ([id number])[facility] ([facility])[address] [place] [address] CO2 [Moles/Vol] 32 mmol/L Normal 21-32 [facility] Comment on above: Performed By: #### 2 4362-6 ####DERRICK Hall ([id number])[facility] ([facility])[address] [place] [address] Creatinine [Mass/Vol] 0.42 mg/dL Low 0.50-1.05 [facility] Comment on above: Performed By: #### 2 4362-6 ####DERRICK Hall ([id number])[facility] ([facility])[address] [place] [address] GFR/1.73 sq M.predicted MDRD (S/P/Bld) [Vol rate/Area] mL/min/{1.73_m2} Normal >60 [facility] Comment on above: Result Comment: Calc ulations of estimated GFR are performed using the 2020 CKD-EPI Study Refit equation without the race variable for the IDMS-Traceable creatinine methods.https://jasn.asnjournals.org/content/early/ N.4964417275 Performed By: #### 2 4362-6 ####DERRICK Hall ([id number])[facility] ([facility])[address]807 [place] [address] Glucose [Mass/Vol] 167 mg/dL High 74-99 [facility] Comment on above: Performed By: #### 2 4362-6 ####DERRICK Hall ([id number])[facility] ([facility])[address]147 [place] [address] Phosphate [Mass/Vol] 3.0 mg/dL Normal 2.5-4.9 [facility] Comment on above: Performed By: #### 2 4362-6 ####DERRICK Hall ([id number])[facility] ([facility])[address] [place] [address] Potassium [Moles/Vol] 3.1 mmol/L Low 3.5-5.3 [facility] Comment on above: Performed By: #### 2 4362-6 ####DERRICK Hall ([id number])[facility] ([facility])[address] [place] [address] Sodium [Moles/Vol] 138 mmol/L Normal 136-145 [facility] Comment on above: Performed By: #### 2 4362-6 ####DERRICK Hall ([id number])[facility] ([facility])[address]177 [place] [address] Urea nitrogen [Mass/Vol] 15 mg/dL Normal 6-23 [facility] Comment on above: Performed By: #### 2 4362-6 ####DERRICK Hall ([id number])[facility] ([facility])[address] [place] [address] XR CHEST 1 VIEWon 03-30-2025 XR CHEST 1 VIEW Normal [facility] XR Chest Single viewon 03-30 [facility] Work Phone: Radiology Study observation (narrative) [facility] Work Phone: XR Chest Single viewOrdered By: Con Dougherty on 03-30-2025 [facility] Work Phone: CBC W Auto Differential pane l (Bld)on 03-29-2025 Basophils (Bld) [#/Vol] 0.04 10*3/uL [facility] Basophils/100 WBC (Bld) 0.4 % 0.0 - 2.0 % [facility] Eosinophils (Bld) [#/Vol] 0.31 10*3/uL [facility] Eosinophils/100 WBC (Bld) 3.2 % 0.0 - 6.0 % [facility] Erythrocyte distribution width (RBC) [Ratio] 12.4 % 11.5 - 14.5 % [facility] Hematocrit (Bld) [Volume fraction] 41.7 % 36.0 - 46.0 % [facility] Hemoglobin (Bld) [Mass/Vol] 13.2 g/dL 12.0 - 16.0 g/dL [facility] Immature granulocytes (Bld) [#/Vol] 0.05 10*3/uL [facility] Immature granulocytes/100 WBC (Bld) 0.5 % 0.0 - 0.9 % [facility] Interpretation and review of laboratory results Abnormal [facility] Lymphocytes (Bld) [#/Vol] 1.04 10*3/uL Low [facility] Lymphocytes/100 WBC (Bld) 10.6 % 13.0 - 44.0 % [facility] MCH (RBC) [Entitic mass] 31.1 pg 26.0 - 34.0 pg [facility] MCHC (RBC) [Mass/Vol] 31.7 g/dL Low 32.0 - 36.0 g/dL [facility] MCV (RBC) [Entitic vol] 98 fL 80 - 100 fL [facility] Monocytes (Bld) [#/Vol] 0.88 10*3/uL [facility] Monocytes/100 WBC (Bld) 9.0 % 2.0 - 10.0 % [facility] Neutrophils (Bld) [#/Vol] 7.47 10*3/uL [facility] Neutrophils/100 WBC (Bld) 76.3 % 40.0 - 80.0 % [facility] Nucleated RBC/100 WBC (Bld) [Ratio] 0.0 % [facility] Platelets (Bld) [#/Vol] 205 10*3/uL [facility] RBC (Bld) [#/Vol] 4.24 10*6/uL [facility] WBC (Bld) [#/Vol] 9.8 10*3/uL [facility] Basophils (Bld) [#/Vol] 0.04 x10*3/uL Normal 0.00-0.10 [facility] Comment on above: Performed By: #### 5 7021-8 ####DERRICK Hall ([id number])[facility] ([facility])[id number] [place] [address]803 Basophils/100 WBC (Bld) 0.4 % Normal 0.0-2.0 [facility] Comment on above: Performed By: #### 5 7021-8 ####DERRICK Hall ([id number])[facility] ([facility])[id number] [place] [address] 48911 Eosinophils (Bld) [#/Vol] 0.31 x10*3/uL Normal 0.00-0.70 [facility] Comment on above: Performed By: #### 5 7021-8 ####DERRICK Hall ([id number])[facility] ([facility])[id number] [place] [address] 24052 Eosinophils/100 WBC (Bld) 3.2 % Normal 0.0-6.0 [facility] Comment on above: Performed By: #### 5 7021-8 ####DERRICK Hall ([id number])[facility] ([facility])[id number] [place] [address] 11228 Erythrocyte distribution width (RBC) [Ratio] 12.4 % Normal 11.5-14.5 [facility] Comment on above: Performed By: #### 5 7021-8 ####DERRICK Hall ([id number])[facility] ([facility])[id number] [place] [address] 17875 Hematocrit (Bld) [Volume fraction] 41.7 % Normal 36.0-46.0 [facility] Comment on above: Performed By: #### 5 7021-8 ####DERRICK Hall ([id number])[facility] ([facility])[id number] [place] [address] 86776 Hemoglobin (Bld) [Mass/Vol] 13.2 g/dL Normal 12.0-16.0 [facility] Comment on above: Performed By: #### 5 7021-8 ####DERRICK Hall ([id number])[facility] ([facility])[id number] [place] [address] 34324 Immature granulocytes (Bld) [#/Vol] 0.05 x10*3/uL Normal 0.00-0.70 [facility] Comment on above: Performed By: #### 5 7021-8 ####DERRICK Hall ([id number])[facility] ([facility])[address] [place] [address] Immature granulocytes/100 WBC (Bld) 0.5 % Normal 0.0-0.9 [facility] Comment on above: Result Comment: Arlen ture Granulocyte Count (IG) includes promyelocytes, myelocytes and metamyelocytes but does not include bands. Percent differential counts (%) should be interpreted in the context of the absolute cell counts (cells/UL). Performed By: #### 5 7021-8 ####DERRICK Hall ([id number])[facility] ([facility])[address] [place] [address] Lymphocytes (Bld) [#/Vol] 1.04 x10*3/uL Low 1.20-4.80 [facility] Comment on above: Performed By: #### 5 7021-8 ####DERRICK Hall ([id number])[facility] ([facility])[address] [place] [address] Lymphocytes/100 WBC (Bld) 10.6 % Normal 13.0-44.0 [facility] Comment on above: Performed By: #### 5 7021-8 ####DERRICK Hall ([id number])[facility] ([facility])[address] [place] [address] MCH (RBC) [Entitic mass] 31.1 pg Normal 26.0-34.0 [facility] Comment on above: Performed By: #### 5 7021-8 ####DERRICK Hall ([id number])[facility] ([facility])[address] [place] [address] MCHC (RBC) [Mass/Vol] 31.7 g/dL Low 32.0-36.0 [facility] Comment on above: Performed By: #### 5 7021-8 ####DERRICK CHOUDHARYMOGAY Hall ([id number])[facility] ([facility])[address] [place] [address] MCV (RBC) [Entitic vol] 98 fL Normal 80-100 [facility] Comment on above: Performed By: #### 5 7021-8 ####DERRICK Hall ([id number])[facility] ([facility])[address] [place] [address] Monocytes (Bld) [#/Vol] 0.88 x10*3/uL Normal 0.10-1.00 [facility] Comment on above: Performed By: #### 5 7021-8 ####DERRICK BRAR L ([id number])[facility] ([facility])[address] [place] [address] Monocytes/100 WBC (Bld) 9.0 % Normal 2.0-10.0 [facility] Comment on above: Performed By: #### 5 7021-8 ####DERRICK BRAR L ([id number])[facility] ([facility])[address] [place] [address] Neutrophils (Bld) [#/Vol] 7.47 x10*3/uL Normal 1.20-7.70 [facility] Comment on above: Result Comment: Perc ent differential counts (%) should be interpreted in the context of the absolute cell counts (cells/uL). Performed By: #### 5 7021-8 ####DERRICK Hall ([id number])[facility] ([facility])[address] [place] [address] Neutrophils/100 WBC (Bld) 76.3 % Normal 40.0-80.0 [facility] Comment on above: Performed By: #### 5 7021-8 ####DERRICK BRAR L ([id number])[facility] ([facility])[address] [place] [address] Nucleated RBC/100 WBC (Bld) [Ratio] 0.0 /100 WBCs Normal 0.0-0.0 [facility] Comment on above: Performed By: #### 5 7021-8 ####DERRICK CHOUDHARYMOTZCARIDAD L ([id number])[facility] ([facility])[address] [place] [address] Platelets (Bld) [#/Vol] 205 x10*3/uL Normal 150-450 [facility] Comment on above: Performed By: #### 5 7021-8 ####DERRICK Hall ([id number])[facility] ([facility])[address] [place] [address] RBC (Bld) [#/Vol] 4.24 x10*6/uL Normal 4.00-5.20 [facility] Comment on above: Performed By: #### 5 7021-8 ####DERRICK Hall ([id number])[facility] ([facility])[address] [place] [address] WBC (Bld) [#/Vol] 9.8 x10*3/uL Normal 4.4-11.3 [facility] Comment on above: Performed By: #### 5 7021-8 ####DERRICK Hall ([id number])[facility] ([facility])[address] [place] [address] CBC panel Auto (Bld)on 03-29 Erythrocyte distribution width (RBC) [Ratio] 12.3 % 11.5 - 14.5 % [facility] Hematocrit (Bld) [Volume fraction] 40.5 % 36.0 - 46.0 % [facility] Hemoglobin (Bld) [Mass/Vol] 12.8 g/dL 12.0 - 16.0 g/dL [facility] Interpretation and review of laboratory results Abnormal [facility] MCH (RBC) [Entitic mass] 30.7 pg 26.0 - 34.0 pg [facility] MCHC (RBC) [Mass/Vol] 31.6 g/dL Low 32.0 - 36.0 g/dL [facility] MCV (RBC) [Entitic vol] 97 fL 80 - 100 fL [facility] Nucleated RBC/100 WBC (Bld) [Ratio] 0.0 % [facility] Platelets (Bld) [#/Vol] 194 10*3/uL [facility] RBC (Bld) [#/Vol] 4.17 10*6/uL [facility] WBC (Bld) [#/Vol] 11.3 10*3/uL [facility] Erythrocyte distribution width (RBC) [Ratio] 12.3 % Normal 11.5-14.5 [facility] Comment on above: Performed By: #### 5 8410-2 ####DERRICK Hall ([id number])[facility] ([facility])[address] [place] [address] Hematocrit (Bld) [Volume fraction] 40.5 % Normal 36.0-46.0 [facility] Comment on above: Performed By: #### 5 8410-2 ####DERRICK Hall ([id number])[facility] ([facility])[id number] [place] [address]24 Hemoglobin (Bld) [Mass/Vol] 12.8 g/dL Normal 12.0-16.0 [facility] Comment on above: Performed By: #### 5 8410-2 ####DERRICK Hall ([id number])[facility] ([facility])[address] [place] [address]77 MCH (RBC) [Entitic mass] 30.7 pg Normal 26.0-34.0 [facility] Comment on above: Performed By: #### 5 8410-2 ####DERRICK Hall ([id number])[facility] ([facility])[address] [place] [address] MCHC (RBC) [Mass/Vol] 31.6 g/dL Low 32.0-36.0 [facility] Comment on above: Performed By: #### 5 8410-2 ####DERRICK Hall ([id number])[facility] ([facility])[address] [place] [address] MCV (RBC) [Entitic vol] 97 fL Normal 80-100 [facility] Comment on above: Performed By: #### 5 8410-2 ####DERRICK Hall ([id number])[facility] ([facility])[address] [place] [address] Nucleated RBC/100 WBC (Bld) [Ratio] 0.0 /100 WBCs Normal 0.0-0.0 [facility] Comment on above: Performed By: #### 5 8410-2 ####DERRICK Hall ([id number])[facility] ([facility])[address] [place] [address] Platelets (Bld) [#/Vol] 194 x10*3/uL Normal 150-450 [facility] Comment on above: Performed By: #### 5 8410-2 ####DERRICK Hall ([id number])[facility] ([facility])[address] [place] [address] RBC (Bld) [#/Vol] 4.17 x10*6/uL Normal 4.00-5.20 [facility] Comment on above: Performed By: #### 5 8410-2 ####DERRICK Hall ([id number])[facility] ([facility])[address] [place] [address] WBC (Bld) [#/Vol] 11.3 x10*3/uL Normal 4.4-11.3 [facility] Comment on above: Performed By: #### 5 8410-2 ####DERRICK Hall ([id number])[facility] ([facility])[address] [place] [address] Electrocardiogram, 12-lead P RN ACS symptomson 03-29-2025 Atrial Rate 105 BPM [facility] Work Phone: [phone] Q Onset 220 ms [facility] Work Phone: [phone] QRS Count 15 beats [facility] Work Phone: [phone] QRS Duration 132 ms [facility] Work Phone: [phone] QT Interval 392 ms [facility] Work Phone: [phone] QTC Calculation(Bazett) 490 ms [facility] Work Phone: [phone] QTC Fredericia 455 ms [facility] Work Phone: [phone] R [place] 112 degrees [facility] Work Phone: [phone] T [place] 105 degrees [facility] Work Phone: [phone] T Offset 416 ms [facility] Work Phone: [phone] Ventricular Rate 94 BPM [facility] Work Phone: [phone] MUSE [facility] Work Phone: [phone] [facility] Work Phone: [phone] Atrial Rate 86 BPM [facility] Work Phone: [phone] P [place] 43 degrees [facility] Work Phone: [phone] P Offset 191 ms [facility] Work Phone: [phone] P Onset 129 ms [facility] Work Phone: [phone] [place] Interval 184 ms [facility] Work Phone: [phone] Q Onset 221 ms [facility] Work Phone: [phone] QRS Count 14 beats [facility] Work Phone: [phone] QRS Duration 124 ms [facility] Work Phone: [phone] QT Interval 382 ms [facility] Work Phone: [phone] QTC Calculation(Bazett) 457 ms [facility] Work Phone: [phone] QTC Fredericia 431 ms [facility] Work Phone: [phone] R [place] 103 degrees [facility] Work Phone: [phone] T [place] 121 degrees [facility] Work Phone: [phone] T Offset 412 ms [facility] Work Phone: [phone] Ventricular Rate 86 BPM [facility] Work Phone: [phone] MUSE [facility] Work Phone: [phone] [facility] Work Phone: [phone] Glucose Test strip manual (B ld) [Mass/Vol]on 03-29-2025 Glucose [Mass/Vol] 165 mg/dL High 74 - 99 mg/dL [facility] Interpretation and review of laboratory results Abnormal [facility] Glucose [Mass/Vol] 165 mg/dL High 74-99 [facility] Comment on above: Performed By: #### 2 341-6 ####DERRICK Hall ([id number])[facility] ([facility])[address] [place] [address] Glucose [Mass/Vol] 99 mg/dL 74 - 99 mg/dL [facility] Interpretation and review of laboratory results Normal [facility] Glucose [Mass/Vol] 99 mg/dL Normal 74-99 [facility] Comment on above: Performed By: #### 2 341-6 ####DERRICK Hall ([id number])[facility] ([facility])[address] [place] [address] Glucose [Mass/Vol] 109 mg/dL High 74 - 99 mg/dL [facility] Interpretation and review of laboratory results Abnormal [facility] Glucose [Mass/Vol] 136 mg/dL High 74 - 99 mg/dL [facility] Glucose [Mass/Vol] 146 mg/dL High 74 - 99 mg/dL [facility] Interpretation and review of laboratory results Abnormal [facility] Glucose [Mass/Vol] 140 mg/dL High 74 - 99 mg/dL [facility] Interpretation and review of laboratory results Abnormal [facility] Glucose [Mass/Vol] 191 mg/dL High 74 - 99 mg/dL [facility] Interpretation and review of laboratory results Abnormal [facility] Glucose [Mass/Vol] 91 mg/dL 74 - 99 mg/dL [facility] Interpretation and review of laboratory results Normal [facility] Glucose [Mass/Vol] 91 mg/dL Normal 74-99 [facility] Comment on above: Performed By: #### 2 341-6 ####DERRICK Hall ([id number])[facility] ([facility])[address] [place] [address] Glucose [Mass/Vol] 105 mg/dL High 74 - 99 mg/dL [facility] Interpretation and review of laboratory results Abnormal [facility] Glucose [Mass/Vol] 105 mg/dL High 74-99 [facility] Comment on above: Performed By: #### 2 341-6 ####DERRICK Hall ([id number])[facility] ([facility])[address] [place] [address] Glucose [Mass/Vol] 101 mg/dL High 74 - 99 mg/dL [facility] Interpretation and review of laboratory results Abnormal [facility] MR Brain WO and W contrast I Von 03-29-2025 MMODAL MMODAL Radiology Study observation (narrative) [facility] Work Phone: MR Brain WO and W contrast I VOrdered By: Lupe Green on 03-29-2025 [facility] Work Phone: Magnesiumon 03-29-2025 Magnesium [Mass/Vol] 2.02 mg/dL 1.60 - 2.40 mg/dL [facility] Magnesium [Mass/Vol] 2.02 mg/dL Normal 1.60-2.40 [facility] Comment on above: Performed By: #### 1 9123-9 ####DERRICK Hall ([id number])[facility] ([facility])[id number] [place] [address] Magnesium [Mass/Vol]on 03-29 Interpretation and review of laboratory results Normal [facility] No Panel Informationon 03-29 [facility] Non-gynecological cytology m ethod studyOrdered By: Peter Shirley on 03-29-2025 Disclaimer g5vkhQKdXEPcgGVnCvUm MDAwXG Nwn8ivWOMmqEZhQoWiYtAlWfLc AmpamXUkHHLeWqQdv2omq322jH Pwa1pjOAOiXoX5mWHeHXUieEli sbe8vMtqGzTgAXIuu6rvsbQkRb KsZJIlIAMsCBTwlQzwmhq2bSzd WvAxGXRouEqnDXCzBFo8xG39ZY MheO9daAKbENugpzXdKhV0CNkj KSQnLfN1QNJrfNWeFPNxM7cuDI GuENkrQEYlNDxbbKWwFPJ9bBgg l6O6eFRbrWNcbBisDlIcDwLwEf CTm5SqIYu5aAzlN4HsAPEyGlN2 dBHlITXhZZccJWPhIFZjjdV7cD wtqhCxq27inASjLLLzURYsUuHe G69qkb9cyV46kT13SAahifJ7tC Skx4Ddk01qo939lB3bqPWtBXD7 SUQjALJxjDZkKFErHCT1VLEntI CdC6ljIQObFT0upzldAEmvEUuc BKTkfMO6WKEwuYKkS3ZtZSDcYA lkZZEynpl4XzCmLh8llJZhzCok EYzof9vax8xkvQVuQof5AEUiFf RbQwmcICqyu1Gzj8phMFKiwp7t CTA9yLEvqHnnn2Y3zKQpSFTyxT MmhiXuEUQfVjY2DUmuDO5qvi68 FLQlRXB4wc2glOYuhWcxbuNxuQ BiMAmuK9HoXRBoe350SCIqR9Xb YDFvd6V3onXmDbPmMRYfmKL5ms Y8NIWqMBr3yIBoouS5amUvgQBf E7pglD5jTKRvTR3zpcwyk5whNJ faFQnqTUIevTT3hmP1ZYEbqDAc K8MvcE8tLZPqLDncIICebla6Fe DvNm3cnPThoBzhLRynFnsbWAie XHBnbmNvbnRccGduZGVjXHBsYW luXHBsYWluXGYwXGZzMjRccGFy OJuli0LthlKmoWylPZHoEUD7Xm N8XYO4DES5NGn7wTRqFzVneWbk WSofCRH9QkNjZKi9sWQxMnWxzJ g2ORKqYJX6NVd4VVn4sGJ0NDAu cEp9VzAsIED4CuiaCMf4tQu3CZ LjcRj2McYaNBL9EQEfSKLazXhh mIijuK7wWtBvQlKwCscfSI4tUB QeC0zkxHVdUCOaZXHxU3keUfHk sK7irSnoAAojEdNkQgTjLlLEeq Biu4FjwQ0lNBFdQpD9vWCljxCr Q3TgtRThwRWyNKZ9lcAwRPJpb6 FyXHVhk1E6kyVsfzF8jZhbQLLe EGSjjVLkVJ5XFBHsXJPdVEIgik MrgC0xZPJdb97fz61vhyRsQJFf phJgPYVrSDHliF8yDyUmXE1mpI i4EAFcqRBhoUQdEjMoVEKbHG63 zqAtRUYEW3PmVvMuAOGPN1EhiD E7XGJvl8CiSfAltdRjtZXduoDw IO1bOOYoqNNvizMtDAV4JRBnBA LPWaUaZOVoh3AuSA2zSHWitMjw RJJebD0ao1HvPJXdq98vOWTIfZ LrYXUlz3AnlSUnz5GwVTKnJFEu wH0dXYUiPU2jRHSnHKdcNGRmqa Kmka9rzbXhAKHhNVPdK8Namdeo nWsgwwMqAAAemu9fpkRrBAF4TE WiFQZGUMDxwiMzSL32MR9yLRTk qOsvvV6ulJQjiPLPzrj1XSPjvS T6XVsir6UlmQRuofYUgLT4CTwl rhJtDQYfzKXjtIHXOD99NIDqVO EkDEGAXGKdII7modPjv0YfslHx cScmHGM5qScpBOAcd7RzqA1uN3 4fyDkpo5HvrRQmdvKpFHViVCJg RjJMFNKlltmxpg6lYTbpogP6VC D8OOzdUWVtEXTyGb2zLSPytB5h G2ZgHJZ8fxBrk2GgBiBIrSYrzX 75rRKvsl35DKAvQBFmN9ZwMQOq VKZlVPukbmZyxHnqEXUya24owF GywmJvf9FgouAgREBgG9xhNXKv qIFkuORpm5OxuB5aqSXxkdOjDB W0oPVnUJJeoI8wMROexUfxJKBi bK0mZ4RwAYagCg7pTBDgqiwuZP 1hmi52RU7vejCfJO9qafJqAE15 ipGuW0dBHZnqGUGngLKxqQkkpW XaTGMcRFFbnmCsww3dkUovjXGz s58csTK5lIZ6OILatH7uR2HsVM abVn8dNVFzrpnbjFUngMcrPq4j VSPjCRZza6VcgXFhb5HiLZWxZR Cth3BdJNYqx5r3uJQryVXrc6Pw bPV0KMRpq2EnxVl8HPVlqcOjrv SvTRKjiyQlQ25rgPPmqERtm9we G8ibs1GegB2gNGRhrEKmv1RcuZ X0KUx7HdfcUNQ8 [facility] Work Phone: Laboratory comment Darío (Report) [id number] EwMzNcZnRuYmpcdWMxIHtccnRm XIxjw0NzG2GkQkPzJQjjlvTrEC JeTptykueaAVCjHQN5jcSrRILa PXrxKQIwMXyvYo2gcKEoyTukCn ElYOKxq6rbooDIRGogCKOPXNo0 t2ekLFHqRnX5dCFuCQykB8udtf HzbLLyP2Flm5MqNOg4jA98ODZo dS8ejUYbNSqtuoOvRlQ2HDjeJL MpJbM8EDBhqQDsJWSbM3lvEUBm KAxqHSSmCTavgNPnLGN3cKhgz6 C2nYGskGOgkLgoBjVtAqQcFlIL p6QeRAb1rWhnQ9XcCHQwTaI3eC RgXHEfNJfiKBOlINTztcI5uB99 FPgjixW1pEFye5Upn89co617vX 2xiHNbGNF5QMTkZXCowSMdJJCu NWB3UHJzpIIqA8ogBqRswBLdV3 VpScYrrGNgN7XuCsHlmXQbH1Ag XwHceFOyJQXvcRN0AZizv506XC Q5AjNoAG1tX1Rby8C5uM2jfBPb CUZttJWjUlIiQJRoav1syVNdJZ bwe8BaYYT3osR7zAMarBWvCQVs HX30Pzkra5RtSpzkOCJ7SMKtpf Yrk5Jjm2zqToXrvsWpT2zoY7Kj FPElUIHcCUFtLtRyayBcy5Bys5 TdlCBrwJp2n6tdNQFlVOUeeIji k1moCYW2WYKqO3V6zBIiu5bhPE nmBRRwtXE0zzA0UYhxLSVebfS1 xuA2BGioHEBpuOL2flQ7CDclQC ZiPjA5fnQ5KJpbJPTtECC9KkZa HXSng1WuetrvFrTih7DxlQHzDE kvW35nr971TRYzvnYuQ4cttZPw ncpyjXKyyjuvNNrwqvU2CMQySI BsYWluXGYxXGZzMjBcbGFuZzEw MzNcaGljaFxmMVxkYmNoXGYxXG upE0zaYhAzMkMfWXFKlPH0iMHv a2zmamV8gWEeVL4vKCCwaLMocr Onz2L5GDC9dDHrqX4obSHoIXPf zILekoSkye45eEUvcPX6ALNtXP IcoIEybD2hKSKaLJYZcC3cfGWR iwAbtcJyWJFbuCkthd0LtJTocg 5hiKOoC0VnvZcsrEMbTKDiPFWt jSobuLGaHIKaIAKjoetig1RnHV HdkHBgN1IiLI0wMNUvzp72 [facility] Work Phone: Laboratory comment Darío (Report) g4vpvINuPRQqdXTeZkAuXDObRX Wgd1noJBKwvYBaKwUdGyFdBpYp UljgpKKbBTEtUqOrl2tcb453vH Itc3enHMCiLjR0dNOiAUCeD78w PDLPJ779ARXuZJcga3zya3ObCO HgoYHkp6R0DVHWRVdqIFHGJSv3 mOpmP76ua4A5IyexM3ogIVHtCC VvU1DzWQ1mFQElHkp3GBD9OBT8 TNGkFYZoL0QqQJ8xZIYvjOLjYZ m2i5copDpdCGJcWFG2k9wyZRey xjSmKC9hch6hdRe9p5iqxzGjUL HnVAXbpOJZVWEeY2CuhYtdTj5s iSg9xVvcFnvxTOZ5Qan5JH1fwd 85dtp1aYtrVYRjnmrdDgY3WQyx SFVxbiaiKUu1POfpCPIixZN5ZL OzmYDsO2PwDGYxGZ9qbzl5FBC7 CQwzWGNlHhM1FPDcrGMxGABqaV bgJBiew008DTW8VnTeVD6qB8Vi h1U6aK0vmKChFSAqvKJiMoXgMW Wmfj8fpMJbBOuit8IwWLK4ypC6 bJKrlMLwFNLxGM45Tgqic9RcRv rhLGS9MRRydxRgq2Qrv3kwDzFf djOwJ4seE1SbOKCrLYLhZEQiTg IkdkLuq8Nsb5JoySWvmPl5x9fn UFBjGYWjeCktv9tvWPS1NVSvM9 U3bWNsg7khNTixIFAheLD4kbM9 JZQjeRZdY8DopJ6qKEGcEU5lzk u8s7hmIPX8OSmvGKLeGlT6puG9 HZEskIQmMCBcmSldCRcbg564ZR L7GzCiIGSud8QjH3XvoIzzE36l fVmvO90fFHMsjMtuzD8awPweqT 5cZjBcZnMyNFxwYXJkXHBsYWlu XGYxXGZzMjBcbGFuZzEwMzNcaG svsQnmHLwwZeBkOBFeZEnxU3za ZjFcZnMyMCBBMQlTbGlkZXMgT2 2vlNPyCh9xByyjL5muNJsfJUTi MEMoYUpWxXUiQIS3vAbxB4VouE 4yZ53bEOXfDmbMLsridBUiGFPw BBLTYJZcWKE3AKkkUWYrNDZiON 4JRL7DYAUuxmWVUY8aLBTcEyAr UXVpayBTdGFpbiBTbWVhciBOR1 uZQFqiLNPxHHOsWDiKARUrE6Jd yZ5fR03pGVDxWnnZGfsdiUNyUA VgFDGRJFxrSaZKdNwaCWH6DDcd IPDiLIPgEZ3DXU5AAEXdqcWGRY 02CVBhcCBTdGFpbiBTbWVhciBO N1zKNQhqWQJxOLFiXwsFdJHmJY S1kFkcK3NiwU2qR51xPYVtKcoT YofkvNErKLZcASjHXOTtUNY7YM qfGKZpEKHrMV7XRS9UQUDzzwNJ MP17OOOuOhZkFQPuxwDCuKIfyy CXxKFiyqJWO7mQZLzvXOPdOMOy BOFWVGZkLUR6ZVylOCDfJRGyPL 7XYI5GZKQfxlKWQovSZPvhLQXk i0VkMOmoXGLrWCSwXIdFGdKFOV OdjtIFUNwTzXufKALoR32swIMq Sa3xLrkhX9vcUMuzNBUeMrLgZV uUNJZwN0LmrP5mDrpYWlMCrYwu UHJlcAlccGFyIEIyCUNlbGwgQm pbF1bJPMTdtgXHXl5wLZfbRYnx zMGlMJUrGSPlmDAttnPOrof8SO tAnaOJdC0njwsRLOJmnhMVOY0q MYEhuUCZzFTmefNNM0bSAGPqrG 0KwzQcXYmuXLGlUvEUV3LtyKWL yE0fdsjfmNAsUQIlHSEDTPQAZL ksNIOqBCTMP3moJRTiYE3sxIyl TV0eMAXcl9HtFHnxnFNbNQPiXA MYAOEsWAZ2FZixTH7WXZ9yHHnx blByZXAJXHBhciBEMglDZWxsIE Yvy8AjNGucCBBrOFWwFDmZZmSP XHBsYWluXGYxXGZzMjJcbGFuZz EwMzNcaGljaFxmMVxkYmNoXGYx NYhzV1xbVmFeLcGqQakyIQR9 [facility] Work Phone: Pathology report Cancer [facility] [facility] Work Phone: Pathology report final diagnosis Narrative q4iajXEtJNFutRXzQYQhEkywvh YhTFUktLWgB2IpvnqwNRyyAP8l IC0tbRjmbZKzwYBqSBJjOhXcf4 usv691mETpk2asSFCVxlkoiTs7 f6nhLAMYSZhyULUGQPt2fMsyW9 6wr7G4YrhqR4htIBTzTKhukgUv vmY7MLTkqOVbZLb0SWGscIIfpd LxXvAkGCGfqXKbfOW1STCbUZ7p bmaqRCdhMXfaYSWhxdW3LYRzkY XzM1PpKTZjGM1qqmwbKEB7NQxo ZLVxRIZ3LeFkQEWzx4Bsjgc2Jm YjcMl9w3jlTJBxGGErtWycy9pp PVB1PNAonCAbY1llpP6uFJQiID 7uegmob0niUTjoLStjJSXidWV1 lhD3KFKolAEfE7OyiX4nIPTtBL XynoJyhVpbgW5kKdJgCeYuDWfq PtSaOX3wGLduvZquly2aSRA5Fg BehPewd69hjdykIsuuANAfWPAa bGUgYXNwaXJhdGlvblxjZjAgLC BczNXgxQ1sgQCsfaDlC4UbsZQn fS0sdyrxbSLbZLBmYUYdtIUkPB YitEepUM38VWVgfUktDPDdqtu7 XYCtUlGovFNwy63na87awCppD3 ZigGNtWTAqvZ8smWNyHKSopd9v JAPpTC8qC2FuK8gnj34rGoBxA2 HhYG5ozRVhKNAuvuzvwyBdl5wp IIPdYWIaMMEpakU6HFIauKXcdB XnoTKqANWpv1cnU2ine1QsR9ni QO8fYhY2BZPkTxOhBhozSPWcbX JzSBVipnl5aHPcaYecENBhGE4k OWK6gVWaQLGky1RmtgntdHZvCM FrUT6cb1EtBULvOWBzciVlrfUl iVm6pvN7rPqjCOXfBXlqk7PcFB HrgfRuDDTqtPEpFDEdACNzeH9p aN6ygGHrQPEcZZRrUSowBQBbv5 CmWDNktaJkbX9oDOouzi12POI9 e8haxRGtGKfwTjznlUUdknN1XB xSNDUBUUdJXxCxEW2lBPqGF7XW JXmWJfarQnSkYJrceQO3p5jdgW Cqz6d9WIfxWHX7dI3bFBYxEXSj z4ivmBCtMFkySnatjUPwnhH6KZ yDNJHLPZnTQpIgGG8hFWiPJ2DZ XgN2Xtm1ETf7JBvwnTvbEixril JbzHMrXxEqbH8wkIetiW7vElZf DxNiJTXehCTln1BbE1JunKQwKO DxpRgsdkZqeyDcNF22uA8mKISc hUtktYjiWfXbNJ8bSQGmiSWkmB FcMKC0JKLhE6VonXElPPYpjwgt x4qzDVN5kWAkqofbMnPheNHaJX NjzyTEYtYGaD0smLPbb2RuUZOu XKQifOzac97eaegsWnlmLIOpKS VkbGUgYXNwaXJhdGlvblxjZjAg NINlyZJxhR3xgLVhkxTbP9LrgZ VsiE6emazqX5WpTICoiONpDAYp ECcxicEkj5dsORu1hFTak0afFN BpSTPhzXBtUxScvnDlHVhfA28z dfW4XVnvMZ07nJRfLMSlQWQzsz ppCcDtfQJtHYHvbanxKLZpKy9r NAwjwCozwo5eJUU5NYJyaZxvo2 5hcnkgZmluZSBuZWVkbGUgYXNw aXJhdGlvblxjZjAgLCBjeXRvbG 4wbLYeujGjA3CpjQPpcL0uqyhb A7TpNCIreVAyTSVdXTpvpaXdr6 tvOAv4xKOhz1okJFRtBBRovKSe NvDbcmFbPZgvJ87ausE5GNjqXK 50aWZpZWQuXHBhclxjZjFcdGFi TXRndihvJMUtSW6qTMwzeLfyxv 6iOZC7ZMJ8pF9idzGqtDPmuN4r DG1dWOSiOZUoh5TkruE7kN7oFD JrCVCiUEV2yM1re8c1PZDsETXy AXqlOZRyu7NsQpzcPaAiPDpbCU LdO1HvWDDuMNKajUJqLWJtuAkl XP80VKDoyQgaCWJrpzf6KYZeFe JdhECqi92dy14cjWgmP2YabKMg RIPcqU1heHFcQdV1s1IrTSMkwl 7nBAJpgO1qbKJgVWBVHXYbpv43 VF0jbTGeEHPdrlUPh9DyZpJExK IhiU03oj7ocGUxljyeCaKtBGIt z6YdTDNsf99vtQtwOARatZsvmV 9bitxjpRokXZF1pB2yGYJzxAyv PJMfPXSoz7NzsNg2QDQti9KvIM VZNFGnQDhTU9owNGGwruMbW8k5 HZRqmvXkpfQsUSFcqmMsGf6zTT Y2MGyro7WgeN0sqMf5XDCcPbL5 lXIxVHGsjgOxZXlcX96ar4ldKx bbDLGrG4WnSKAfvrg8VEWvbUHb QImla1xyYEQosIXgXWAcgkb7PP MITBRTEGrJPR4HXVKTWGXELE4A IJhKHmDcWxLzPXwvTNEzB12GEp RWYULOJ02FYXFSVTWEX7QONNPT WEgLO2WBDB8UQQFYKSCNHB0JMQ wMQkJULPvJH8WQBL6DCGNWWSSB PA0NMfNwXFdRV7IRL8dBLVWeLY MLMKHKNICdZuFIUT5qWPa7zY61 Y52bVY5cyBrpOaI0EqF6UW3eZL uAJ9FZJ5vDSBAkUIFFEEBIPURu OK9FSQhRJC3HDBSyCGSXCOUZBE YdIzRYCG7mKEqEDU2NDWQnWFJK PBPQOSLtVA8HAZTXFT8GITJBFJ LFB09OCKMNOQHIY8EMX7vKQZFI MQHTDcGMCcFPYJ8ZTIBFIMJEFI 9FTkR9 [facility] Work Phone: Pathology report gross observation Narrative s6tibOWsWURatSXCVQFcGBGkLJ 7ctBfvjDp9pRymFSLicpZ8rXUe CGldo5zhSOS9h2utzmQZUqjkSK TuMjbyNAVmknvxEzS7ETqvODJj gdhsDQv6PHmtWPGbcTE2ODWemE OcX3ExMFJnQF7syeq0ONP6AOgn CMXzPjZ4PSVfUDr0PIOskhY3Hp ulZMb3EKGqYAAhjEZvi8Y4AJcv h3ezy5ThLTYuYEh7rP9Af8iqEq bfX5janjLvyXZhWdA6uOEoNJJb F45iWYCNV842JZiig0YvjPZuTA y3LEoyZRIhG4TvE0AgPGobIjXx PQqkHFCnROUfUUhiYJIeK6PKNV FvJbd4JFvzByLoRDn5KRl3KLQB UBN7JTneVRT1AEd4GNn5WSmkfx wgBXl7BAZvTZitmOUxKB0aoUag BvawgIoil3XxqCApDEMpMPffoV QgNTEwMDIgXFxkYiBPVlIgIiAy ODE4SVFkIFEzKXe4DOvsN4HRYQ SfBTDjMRt4BBw0TeH2DCe7LEMP Ad3kNGK8QGMiOyumQGG6XYQvOB BcXHQgMiBcXHNzIDMgXFxmbCBc HF4ljVmtTDYiCB0LZSLfHUtoHI uieyttUUFfLNQwNdYkGF7uKNhQ XKrtXo7DMZM4MDQaICLRXU9EUR JZIEZJTkUgTkVFRExFIEFTUElS IJMGQ32mRJy2maZuSHOsOMKyOg ImeRCeVO0SDAXxeuJkPBfqaUzp qZ6zfRGuH8egdRTmLyQlBuZbDs xlcGljTmVzdERvYzEgDQpccGFy BHjokXIqXMVxnMo1FSYeUI7GNH UpIhXhJdAcTSi1XXMcEFOnJKjh NUA6EHQdCGSpjnZvSENtcVTrIB PxWUAbBBgvNh5UcSvnQNMdVKL2 STJjfxU9SEAptPVbUKNtmkXdSF KdcPodKHBnr8OjC8O9FGKmNNmt t4bnHXHnZHnez6MmPWrINIKIGQ 9KDF8jvIH6JPwSFOIQY4jEjLHo EsQzuSF4SR36RQQgLWNitCYbVA uqM264qpJao9rwkKHvMUkfTtxe qAVfdaJ9WMeXCZYEUCzXXyViAR 4dJZuSK1CBJoO4NjXhIRZ6FNip nVwxKxudycTfkONbUyJCvQ8fvC oghL3lkRWcH1pstXQnRuFqOeLg JIJoYYJgr3VvN6M2NREtJKpiu5 emAFCwTPust3DvVLuKDMNVRD2Q GS4nrOE7PUyLPKULF8oGtCEyLk B5dCR3Ya04OERpGLJzkYAyJZzw J547oUZ9aRuxBftjrUC1KVhiAj ukhF2doUMCSAZLLieOOlapcfAq VZ3AACSXRR3HdMFyDbD1yZJ6Tk 61UBIgRWXrwPWfHYmbJ930OKGe XCwsCWo5ppAaLVejouqsUSCfIg ElJM7tNMHnEBLvfP0vQWBrmuKB xHEraEu9DXvvyh90KBX6r9xwtK EqQOyaKcjkcOAclhL5QWcGIURA BXjYJyGsAU6xVMlUW9VCCYoKZe noQGDyHEdruTS9n2tbtZXlv8h4 BTvxNDK3zQuvyUa6JWOvURwmx7 qwIGSnTEuzd7PbJKtYKJHNIE4B HU8ibXN6RRlXRSSSTLmxMPJjYP penHH1w2lsgOVlr4q4XWeqLSN5 wPqifUJvcejdfPWeoMdlNU6dGB lddtXlXUBoYDX8kUNaIALiZKpm PXRiCPvay9InEIrrmZgwQLQdLo MuEGgtGLHmV86pb7PFm8Hbz6tu lCmsu0VgdTUgDW6vuXKjSV0Wr3 szSQJahBNkEUZ9YYbcq7zmYYgw CAO5LFWpPvJkHQQuLN3POnXwSH L9Fvz6PrPqSnX8COm3LMGMEiLr FyGeEpK5RbbmMxbhHUa6ATx1PY wDMvLfSwauRRH4SsY4SAJ7SXB2 ORmqmKLxTKaal5NrPfWgFUCqNZ ubwjH5MUEzoeSct6QdOSFzKKDz S6pcClKwIVUCWkzfWEDDIxEWQQ 7FPHKHG4TRALSfXWfkRSBPIL6M QVJZIEZJTkUgTkVFRExFIEFTUE wVJBTSK12dRBBiQXSzYmHiwBKw BH7KLRWyqhWdMBghhWeqeV4osQ AwZ2uprCKmOtUeWtHoNoqliLjr TmVzdERvYzEgDQpcbHRycGFyXH IqWgFlNUTeR9vmLjMoNI6DVFLa CnFrJzRxBHe1NJZkPCGxjQumAZ Xwu8IsO1R7CBJnAWrzr5kiDKHa GOhlb8HsCXuMDHGBML2QYM2koR W6MXsCZYGEH7tObKWfHoKkuFX0 MD65CYGwRAKtgDQnUEshW852jl Now6zaxEVoBJfnRqdmlJHnfzB3 MGnLKHUORZzSKiLxKJ8eUAtNP3 CAUiG9WyJjLJN4ZJjvkSwuHayu yeMvdWHfCnCGlX0erMtarX9vpO UvC1hzwPIgJmZrQwOmJOFmYANy j5MhC1Y4BJSnIJmpt7uaNLCgLK tyg5NwQKnSPHWOTP9WGA8ptHI9 JApBRWPMB0iJyBFkQxG7wNY7Xu 29QIZtNACnqJKgBUlhE428dNX7 bNynBhmiwND5NVbeMyxyaS9liF MGUPUVGmnCCydcqfPnHH3NLZYI WL0NjXNoCcD7kNA7Lt44JLIvAE SejCOhJFzhN493AWAgXWmgHNy0 cmNoXGxhbmcwXGZzMjAgIGZsdW krVDghhb58SMO1m3jqkVPmAYji GobosJZidwZ0DEuBLAZBTNnKAj GjEK5dWQlVR5XUEGvOYwrpDWAj GNepjCA5r6rmqKQha3y7HQixUJ B3wUqbwIf8KUTlHEhvw9veMBYa QOdvy3SmHStXKMRIYX9GVI8kdT V2GAdGLJHYKZukUTVhVMwppIP1 g9ftbXEwr6j1CWduMKY0tGzwsV JhjsknoSTmwHszEN1kWRyotcLg THBwJTK0cIShOMPqaE4hI1i4e4 l6hKMeg100RAdjHRYyYHagEMKl YQvqkJYiAOvfsLRfDCIiv8DbZE pwuIhwWCXwSiDvPJvlHRHjY38t p3IEk8Ybx5lbqLbsm8XlyYJtGA 4hvIFuRF8Qs9yqQWMeuHNwGBX2 SLvan4skNDqaFDJ3CKAhJfPxGT TnUA4QWgWxLUY4Kuz3QcUiFsN8 LUe3SERLFeJoOyUlIwX9YqjmBC CdXGd9WHb9DLaNTcMvIocuCMH9 UVp7RHR2GPR3HCuluLVwRUnrn4 NsVdWfQQHxZPykcdB2RVHrtpId j5WhKNPbYYKeI3ajLlWxDJZYYi eiCIBNNbEIDU8DYLSYX8LCAWWa KFMRZXoWD06PCnupUpnEWMOXSY SZINGbTETZGYBPXVkDKr4aRvIm ZnMyMlxwYXIgDQpccGFyZCANCl paeHSeiqytpVCwjJtqZD4kBSyz avKqNCKtvZGDSZE4YR7kJHYKXa vffVWaAHVtk8NjRVwfoMkwGXWj MzAgDQpcZnMyMCBSZWNlaXZlZC AzNSBtbCBccHJvdGVjdHtcZmll uAI6BQosHfvctV0zrUNPZCCPUd fLMigiyvDdDL2LXVJUEqUNEO88 XqJsIUB7YYgaaXbwFnornjGvyV HuQwVJeB5nzP8ro8ppjEUsZQer CucknREkazA2OPxHXAFXKVnABj JbLR7jPRuQS3CZZhP0OeBpMNX5 MXwxfXtcZmxkcnNsdCBcJzFDfX 1kqLbpgB0cxJRmS5orxPWbDuWd ArNrHDUhBQKbt4OkV6S5TEYhKJ kir8laCOXsLVrfv2CfYFxTUKRT GJ1ICJ9krKZ4MHtRFLUHV6nVgF NxUhB1kMX8Ws11PJDvERLldHTw BXxmA774Q9nbDOM1TTOzVZuvj1 qwWWByFRwby5UqULdYJXTKOF1L GE3rhQC5CVzKSCYCMGfwEVRrBS izpCU2q8bimIEyh6p2JFkjWLD7 mWuriNQgcwtjkNAmdTdgDE9dIK xmczIwICBmbHVpZCBccHJvdGVj zGwqSqzbvFY0FWwwQqgvvP3kzD CQOXXLBeqBRvgxxwGoXP1XBMPE DyJQWD06TzQzBQY0J4ekiVinCl pwrkHryVNzXhHEzH13bFAtg3mk eTKhITqnQgsbqLPmuhH9ZJnSQJ TLGZvKPuHuJE7iIVwUG7EIUuD0 RyWwOMR9W4xxxOejQvithwDabA WiDzOEfQ1tuRfpzI0gyWBgD0db bGFuZzBcZnMyMCAgcGFydGljbG GcKOmbYAG3wK6wsHQzV03fwOQv mgIpWzVdmWKkCY2GKFAbztOphD CbnXJnBIXvScHgRBLjH6nhNHRq US0THVQutPERNNC6XV1mXEgoYS RmI8NxR0CfjrT3RXEkyoELXkoy UkleyAooi5JapFTkTUSwRDrakO QgNTEwMDIgXFxkYiBPVlIgIiAy AHV2FZAqNHHgXCj1FTmnB0XVGJ FfDQZoTCo4Lnt6HxB3VUy3VWUQ Vm6rOCV9ESC2GSAhYFT3MJUtUN BcXHQgMiBcXHNzIDMgXFxmbCBc FC1ckMomKTDhGTLtYFV3RKIpuB MSd1TlIGIeCPagJtYtIW8zQZtI AOxdIx2FZKQ5RXAOWD0XSkJHGU RVYF3EUK2TSSOMPIEHR3QFWeDW VQ7JGdzeMciywwFiLTZhpjCTCe zxABPwPA6DEYEbGPvcZOq5zpEb DXbyrqvoAQZbXgPxJCPkB62hv1 YBe7VlYE4GLAa3hiCqbusmYqUj RKNlpXPCt9SoZDAFIubkzlOdWX BdE9UjhuUiRNX0ZB5iODrvvr85 DJM4h8gjlCBoZUcuLkzjqZFiac J4BFpMSHFXDVsTKfGdKF3qSEfE W8RDRVkXEcbcNVJhS3eltRG9j8 rjyRAlb1b1ECtbVRP0qOJcTFmc CmpzlPN6MYyuIutmcR0lbUKUKZ YHKalUFwfjlvTnJY4ZGLHTRX1S hZDsGwItxKL6OZ19GZYqTOSchN ZzXToyO396YKIfWUbiXNi7zrEj PPfgsjdsKBFyHjPvPNpviw40ZQ P3c4gjsLNgXIakEsyubPUzvmE7 RFqWPJJSDUxTQaWcCQ6gSBoAJ4 YIRRqPHttgLPFhSDqmcNI0j0tj hKWek3j2KSlfBJQ1hYQdOAFsh6 bnzWUvDCiqEoqgyLEmewG3CBvY TRFJSQyABtSfKV5sJWuSA5IGXj A0VlCaPAE3TmunuVciNaopnkZv tFJmAaVIbZ8xiEihlF5fcTIoQ1 akbPUeHxKjJkMfTUEzBkr6eVPr JCHtf5RcV9Z3TPXkOAwpb9ovMF RmDIagn6TmECbWXRTBXC2QNX2v iSN5QTcNUBMJR9rKqLSbXdO7nM H1W696LDMbUOMqvIZaJXoiS547 r3a7tGdzHogwdSY4WJhuYqsrnW 2otUEMGLPLYruIExzgvdIwBB8U MIVDSP1BdLBpEvH4qWG4L968ZY TvEUWlvJGbYCmmW338RGZpGRie GTq2wwMkCAnyyugwISZxDhTiCG TzvlHcM6jijbPuhyFQrAZyvZp9 PYCskbUzmJ8kxi1sXFNohlFGEd kxHADfJBd8gqIvslwpCDJoTNPe zVLQx4MgNJNDWrjttPhnRiFrvE GdEsO8WEOrdCFsPKF0XZ6ddSaw BDOeO2VgT7FpfiL7CZHjwlEGDt ayUSLjEI8CEDQqAnXzMSh5 [facility] Work Phone: Pathology report intraoperative observation Doc (Spec) e3ubqBNgUXPqyFLEYZIcKQUiIY 4aeGlfqMc5nRmrXBNfiiP4rSOa NZpkj2nvHOF1m1eefwYUTgtwLQ DkJrqoPJCarbrkEbU4HVhuMOYk ydpiKKm3EHwhANLvmJV3KJNrmY UtZ7OfDJDfSA8bhkj0QRQ1QYzr WMEzZdQ2WMDdXAm5YOPvdzQ3Cp euHJe3PFBwWIPqjWCgl7U2YOdl w7mkh1VdXAAeOSe2iT1Ax8xoTu ueA4phcoQzsMZcHmX1eRFeUKSl Q46xYALLH874CPk8HVJlfU2gxU QvS1wgESLhCFppHTEcDZooiFIk CTw7IKqvo2YwfMEuVMn6LYvaPB DcX1ElG3ZcAIqjCrMfFPhjRGIb FDEtKJanXPEsS4BZEHRrDfm4HO dzGdKyELq2BEj0FMSSXYC7UBsn URH3RNk9NTk5VHxmqempTFh5GF PpPDnmvIGyFT9sdKggGnqkoFop e4AppNUlVELhDPazwRGtKJCfRR VbCDcrHuQJSbUqTuCiNNO9WNOd ARGzBLo9PPwbO0YXNRNkAQIuSW w4LAe5BuR3FIs4JIYKPl1hLVV2 EXH1KWU0ABC7TNPfGZTvVJHvTq GwUNSrTAIkMGxjdQImPB8lhGud ZZAsRE7RXRSkFSpeVOvckeqnTA LyFULbWnCbED6oEDuXNJprUd9E FUC0PCKrUYOBNW7NSAISYGYAJu InVmVBGJyCIABEZYnBBVNQT96v GCx6tuJrLOQhUFTdNxUigEEyUP 9MRQOfjtPuIHmljLbtsO7ftHPx C7owoMKpWyEdLfWgNqqzdToaTz IffOVcXiYkEFazxOIqpEZtID7P OASkIYWqXpSxRiGcpSXyU18pf2 y7CGXDzyQhzYP1hA0cQNAuSMFv ZjKgiLv2OybyODNrDFvYILQdOC K7ZFkhdv08ONI5h6bkrGVfSWon BkeidBBvmtZ2MRnPYNIAYHhHBx QnZS6kDYcKM3UQCPzXIpboGCX6 YZgxrTW9y9mikFRjz2h4WUdiDN Z4rIyhvo46QTF7PHrvgoO0CBNz aWNTTFAwIFxsdHJjaFxmczIwe1 qizGOpSVieBsxnpSPumkV7HIlD ZQQGHGrQTdApRP1wYBsCRDLWIT dJTnwyfXtcZmxkcnNsdCBcJzFD xI1Vi4VimGb9GOEdt2MreOMsrR tmHJ11KRInyObrOFJxRXAhknBp j63wx80puWsrN4HoeBOjBVIodW 3kvUYbi3ginHDvPRflUcfypVTt liU9PDaEJSUIZTzDVvVvCT4rIG kMLYKJJlZ1Hh66XMTnXWIalETy NFezG700MBMjAZrxZJi1juYhJK Vvn5DyF6BfbYIzVoPmZdVuXkDv TNcksk05EFA9MNlexnJ2YMMaiC NROUEnDNkuwIAwqWonyt62HWW4 OOJtNjR6SKKwXKtad3zcIOIjWE aqm5PpLEbGQZQWPI1ZCJ8lhEE8 FEgWWYEKAMadIQQ7JTpanBG1f4 sdcKWxq4l0BWgvPNB4qJpfsQGv kbstnMItfWytHC1iVRabHDgvys IwXHBhciANClxwYXIgDQpQYXRo w5nzL2bgkTmqDYIcm8IpW0A7UT InPLytv3xcPIWoWRtcu8TaITcJ WSIRMA7MLW5qrUB8QUbDLKFCO8 qCfTH7Luf6kIW9B809QINuTRIt aMMgHAriE681BJLfAQuwA27zam k5LJKJMRE4YTqvHboxrIV7TIwg ZnkgwU0jeGNWZQOGSnnSQengoc WjUX1CCYHMJZ4UqBD0Rht9aMJ2 Z178MSFdEXLkpISpAPtdG495WE FvDNkqOFb0fbKrQNgmnnhxAIBp XGZzMjAgXHRhYiBDYWxsZWQgRG S4VN3RpE1uCuL0FqZ6RkTmBrEh YXQgMjoxMCBwbVxwYXIgDQpccG KjFS0LDADunUCbhQewhsApDTIc d1BpELKhDDM1GLghCMAkINbpE7 RdKIQmlZKlxaWyaNguVK8rrDc6 YWxzIENsZXZlbGFuZCBNZWRpY2 FsIENlbnRlclxwYXIgDQpEZXBh wtErVX23HX4uVSZdvJyqhF8naO xwYXIgDQoxMTEwMCBFdWNsaWQg QXZlbnVlXHBhciANCkNsZXZlbG AoJHonE7ehtdG7HWApVv17HIQp AVChohTERlGpw15kDzDsPcK6ZC W1QQJuILrnMpXSJDt4EZdaWHGt ECr5RE6rAEJnHMBpLNUmEQTfcc NNQljyQSVmXKYgpOTGk8RuQOKH LzjhsKslNbOirNHeOoT4EPNkoU OeMUE3OE5ecCsyVSUuX4BlN6Xc bvB8WIEtihYNNzplIRDwJA8PGJ QrVOcfAHukgcgkRL0OgN== [facility] Work Phone: Pathology report relevant history Narrative j9bslIZkWXOohZGpMPMtEbxppy KpGMSieDItV6CovwtrAZdfXR0f DA7ewMiqlTKqcEIpFNElMmYac5 gko600tYPvf3baJWKVcyirwWg3 pGpfN02vv9J9HwxrF62tkZPgQR D1SEDvROEecPMqJAZaTCF2WQJh vERlN6dbCRNcNE8kzffxNOlgTF gxYSRwpLS4ZSPqyJZeY9JuRTDf ZSdiGFPhvkd9QgMxCl6pxICzrR cyMFxwYXJkXHBsYWluXGZzMjAg BAwrDULhuOQun2mkVPS9 [facility] Work Phone: [facility] Work Phone: Renal function 2000 panelon 03-29-2025 Albumin BCP dye [Mass/Vol] 3.0 g/dL Low 3.4 - 5.0 g/dL [facility] Anion gap [Moles/Vol] 10 mmol/L 10 - 2 0 mmol/L [facility] Calcium [Mass/Vol] 9.0 mg/dL 8.6 - 10. 6 mg/dL [facility] Chloride [Moles/Vol] 97 mmol/L Low 98 - 10 7 mmol/L [facility] CO2 [Moles/Vol] 33 mmol/L High 21 - 32 mmol/L [facility] Creatinine [Mass/Vol] 0.63 mg/dL 0.50 - 1.05 mg/dL [facility] eGFR - PINF [facility] Glucose [Mass/Vol] 212 mg/dL High 74 - 99 mg/dL [facility] Interpretation and review of laboratory results Abnormal [facility] Phosphate [Mass/Vol] 2.2 mg/dL Low 2.5 - 4 .9 mg/dL [facility] Potassium [Moles/Vol] 3.3 mmol/L Low 3.5 - 5.3 mmol/L [facility] Sodium [Moles/Vol] 137 mmol/L 136 - 145 mmol/L [facility] Urea nitrogen [Mass/Vol] 17 mg/dL 6 - 23 mg/dL [facility] Albumin BCP dye [Mass/Vol] 3.0 g/dL Low 3.4-5.0 [facility] Comment on above: Performed By: #### 2 4362-6 ####DERRICK Hall ([id number])[facility] ([facility])[address] [place] [address] Anion gap [Moles/Vol] 10 mmol/L Normal 10-20 [facility] Comment on above: Performed By: #### 2 4362-6 ####DERRICK Hall ([id number])[facility] ([facility])[address] [place] [address] Calcium [Mass/Vol] 9.0 mg/dL Normal 8.6-10.6 [facility] Comment on above: Performed By: #### 2 4362-6 ####DERRICK Hall ([id number])[facility] ([facility])[address] [place] [address] Chloride [Moles/Vol] 97 mmol/L Low 98-107 [facility] Comment on above: Performed By: #### 2 4362-6 ####DERRICK Hall ([id number])[facility] ([facility])[address] [place] [address] CO2 [Moles/Vol] 33 mmol/L High 21-32 [facility] Comment on above: Performed By: #### 2 4362-6 ####DERRICK Hall ([id number])[facility] ([facility])[address] [place] [address] Creatinine [Mass/Vol] 0.63 mg/dL Normal 0.50-1.05 [facility] Comment on above: Performed By: #### 2 4362-6 ####DERRICK Hall ([id number])[facility] ([facility])[address] [place] [address] GFR/1.73 sq M.predicted MDRD (S/P/Bld) [Vol rate/Area] mL/min/{1.73_m2} Normal >60 [facility] Comment on above: Result Comment: Calc ulations of estimated GFR are performed using the 2020 CKD-EPI Study Refit equation without the race variable for the IDMS-Traceable creatinine methods.https://jasn.asnjournals.org/content/early// N.9773949289 Performed By: #### 2 4362-6 ####DERRICK Hall ([id number])[facility] ([facility])[address] [place] [address] Glucose [Mass/Vol] 212 mg/dL High 74-99 [facility] Comment on above: Performed By: #### 2 4362-6 ####DERRICK Hall ([id number])[facility] ([facility])[address] [place] [address] Phosphate [Mass/Vol] 2.2 mg/dL Low 2.5-4.9 [facility] Comment on above: Performed By: #### 2 4362-6 ####DERRICK Hall ([id number])[facility] ([facility])[address] [place] [address] Potassium [Moles/Vol] 3.3 mmol/L Low 3.5-5.3 [facility] Comment on above: Performed By: #### 2 4362-6 ####DERRICK Hall ([id number])[facility] ([facility])[address] [place] [address] Sodium [Moles/Vol] 137 mmol/L Normal 136-145 [facility] Comment on above: Performed By: #### 2 4362-6 ####DERRICK Hall ([id number])[facility] ([facility])[address] [place] [address] Urea nitrogen [Mass/Vol] 17 mg/dL Normal 6-23 [facility] Comment on above: Performed By: #### 2 4362-6 ####DERRICK Hall ([id number])[facility] ([facility])[address] [place] [address] Albumin BCP dye [Mass/Vol] 3.0 g/dL Low 3.4 - 5.0 g/dL [facility] Anion gap [Moles/Vol] 16 mmol/L 10 - 2 0 mmol/L [facility] Calcium [Mass/Vol] 9.1 mg/dL 8.6 - 10. 6 mg/dL [facility] Chloride [Moles/Vol] 97 mmol/L Low 98 - 10 7 mmol/L [facility] CO2 [Moles/Vol] 29 mmol/L 21 - 32 mmol/L [facility] Creatinine [Mass/Vol] 0.50 mg/dL 0.50 - 1.05 mg/dL [facility] eGFR - PINF [facility] Glucose [Mass/Vol] 83 mg/dL 74 - 99 mg/dL [facility] Interpretation and review of laboratory results Abnormal [facility] Phosphate [Mass/Vol] 2.8 mg/dL 2.5 - 4 .9 mg/dL [facility] Potassium [Moles/Vol] 3.6 mmol/L 3.5 - 5.3 mmol/L [facility] Sodium [Moles/Vol] 138 mmol/L 136 - 145 mmol/L [facility] Urea nitrogen [Mass/Vol] 17 mg/dL 6 - 23 mg/dL [facility] Albumin BCP dye [Mass/Vol] 3.0 g/dL Low 3.4-5.0 [facility] Comment on above: Performed By: #### 2 4362-6 ####DERRICK Hall ([id number])[facility] ([facility])[address] [place] [address] Anion gap [Moles/Vol] 16 mmol/L Normal 10-20 [facility] Comment on above: Performed By: #### 2 4362-6 ####DERRICK Hall ([id number])[facility] ([facility])[address] [place] [address] Calcium [Mass/Vol] 9.1 mg/dL Normal 8.6-10.6 [facility] Comment on above: Performed By: #### 2 4362-6 ####DERRICK Hall ([id number])[facility] ([facility])[address] [place] [address] Chloride [Moles/Vol] 97 mmol/L Low 98-107 [facility] Comment on above: Performed By: #### 2 4362-6 ####DERRICK Hall ([id number])[facility] ([facility])[address] [place] [address] CO2 [Moles/Vol] 29 mmol/L Normal 21-32 [facility] Comment on above: Performed By: #### 2 4362-6 ####DERRICK Hall ([id number])[facility] ([facility])[address] [place] [address] Creatinine [Mass/Vol] 0.50 mg/dL Normal 0.50-1.05 [facility] Comment on above: Performed By: #### 2 4362-6 ####EDRRICK Hall ([id number])[facility] ([facility])[address] [place] [address] GFR/1.73 sq M.predicted MDRD (S/P/Bld) [Vol rate/Area] mL/min/{1.73_m2} Normal >60 [facility] Comment on above: Result Comment: Calc ulations of estimated GFR are performed using the 2020 CKD-EPI Study Refit equation without the race variable for the IDMS-Traceable creatinine methods.https://jasn.asnjournals.org/content/early/ N.5994482682 Performed By: #### 2 4362-6 ####DERRICK Hall ([id number])[facility] ([facility])[address] [place] [address] Glucose [Mass/Vol] 83 mg/dL Normal 74-99 [facility] Comment on above: Performed By: #### 2 4362-6 ####DERRICK Hall ([id number])[facility] ([facility])[address] [place] [address] Phosphate [Mass/Vol] 2.8 mg/dL Normal 2.5-4.9 [facility] Comment on above: Performed By: #### 2 4362-6 ####DERRICK Hall ([id number])[facility] ([facility])[address] [place] [address] Potassium [Moles/Vol] 3.6 mmol/L Normal 3.5-5.3 [facility] Comment on above: Performed By: #### 2 4362-6 ####DERRICK Hall ([id number])[facility] ([facility])[address] [place] [address] Sodium [Moles/Vol] 138 mmol/L Normal 136-145 [facility] Comment on above: Performed By: #### 2 4362-6 ####DERRICK Hall ([id number])[facility] ([facility])[address] [place] [address] Urea nitrogen [Mass/Vol] 17 mg/dL Normal 6-23 [facility] Comment on above: Performed By: #### 2 4362-6 ####DERRICK Hall ([id number])[facility] ([facility])[address] [place] [address] Surgical pathology studyOrde red By: Geovanna Mcnair on 03-29-2025 Disclaimer h5firABoGIIgxHXsRjQo MDAwXG Tzv9wiUSWioVXzBuLeWaGfDtSy ZybatTIfPKJgWkRjv6skr011cS Dsr0weEKDxFuE1fQClXWRnfPxj evn1gZzzInSkJRAga0iwtcJoDv YxDMDsPKWvXCMwwCnxbyl0nZiu VcVbXLQeeVexLLLsXEi6iN91UC UwqT9sgAOlZDcrhbAhKnP2MHkx QBIcUuA0BVIswBYbVZOpY8mmSW VmQXqbWMIhHKurfHHfMYK6bFws w0W2zURhuRKsyLgcDmMcYoGjGi XFo9EnKSp6tPiqS7MxVKAaLaF5 yVKqSPDzKTdhJRIsZKYgdsB0aM kvptVpn60ehXYaNAFbPTUhCtGg Q28xri5mkG71bS44FJdmyqP1sM Abv0Ppk17bm492sR0meHNdCIC1 ICAyMYAwyOCmLWVpHUD3CNCflO KqE5qdXCMwQJ3bvhteGRbaUQry KUYxpXX9TMAotDMiC1JxACZdOC gcBNQxedv9YaSjHe8tzUUmhBdh GYbjm6ues4bzbAYwWdx5ZXVkMd BgEysvROtwr1Ytk0dlAMDjgx5j TET6wQVwaUhua5E5xFDpELUtiO XovmIoCVDwScM6KFfeQJ8ofz92 WKSuZJE3oo3wtIDprGetlaXboN NdXDdqU9NnNGLht606RQPyQ0Ca PUSxb2F2oiCtZuNcCKBadCO0xp Z0WSUsUGi3jHKtzwW9vmGluNMw J3iuwV1eGXRpAH0wbeqkh8pfEV hdVFklGKVsvRD2toG3SIZegNYr D3NrkW4hMLQhEUjgRXTpdwo6Pg EfEs0oeWOmjFmsFBeoDsumGYcm XHBnbmNvbnRccGduZGVjXHBsYW luXHBsYWluXGYwXGZzMjRccGFy PZwpc0VrzjMflMikSWKuXEQ1Tr P6XLE2IKD9WDj5qKKbJsLudXly YOssFKA0ZgLzHLk5aGEtNhPiqR a4EAXzJHN4JJx9XWj0nGO1QTMw cSf6BzGwTSL8KfikZWw0qJr8AO YruOa0CvZyTKG1UDZdMDXtbLyt uGfxrN5aXbJuLkLvQdajOJ7cZK ArY4lowBHnZBCaCEWyF8uoBoVg pK7zgUfwLRauArKuWuBuIgHYkp Sxy8LjuR4jKVZcXyN4uVBmusDv N6JvxJRjlTZeGBY3amYyMLFwl1 IqZGBuj0Q1wyZuwaG5wVlwTCTj IVHvuQXtGV3LRACrZAHqNAZlgf KxuB3cLUWfq43wr45hdpZkUHXa vcArAHQfIVZkeE3sTzSoVU3uzQ f4PVXjpWVcfWZgOoPuQMRyCC52 yfToJQWWL2SiAeQpIEPXZ7CgyG L1WCBzq9KlBwVtkgZilJWhyuXs GH0xZEVynFBkvaOpDCC5IJGuOG GTVpCmJFVai0LqRE2kIWUxlKwv VPIadH1xe4PqFGKqe79nFRAUyS YtEKRkn4VvdNPqa3MdICZeVOXr kA2dKTRnBE7bYUPcSDbeNLEaxn Gqyd0ocxAnYWHjVTWzS9Qjwpam yFskcpUtWVHlvr1ucnUyDGF3XA GkHPEDHDRfxgWoQL61GQ3jUFAu nZeiaQ8hdEAzsDEYsid9LTOiuM V9UXczt2SwySLccqJWuDD6UOyf xiQsXZDflHBtxRBYRC67TYPlTK ZvLPHEZKPeCS4nwjNan2VlamXw xMirYAH6yQvuDOXyu4FovP7wO0 2hmLemn6BhqTLaakEbFNNqXIEe VxQVFWEbxbinqs7qXDdlpvI0FL E5STyvOGJqYVVuYo8bGTJumZ1l H2LtOOW2zgXjv6KpXlOYaZTxvK 22kGMhap46LRLpAHArZ5MzZXHb XNVsDXwmvcVkiQxqQUVua37pxU SzxbOuv9NadeLqZCTdP5heMNSm rKLnhUKbr3MprY4blFDbafMpMB Q7gLFvARViiA9iGUUwkJabGYYp aO8wR5FhFKlwWy5lXYIxjdnrLP 9tkh54CZ3joxSpAB0tdvZlKM93 dzFcA2gLUGgfQJLwcRQtaVwffB IlKFObXESkhkDrmn1wsChkjBHu d94jmTL0pHN4ZAKzyO5fW3ZgRV sqMb4ePIBjlrwozYKaxIdeIw3t XZFcGJSqo4CuwIBpe8PbQXZwYK Fkv7QsOWZji2q5zPTbkPLfm2Cc bXC0PAPgl8KpmZm4LPCcmuXsgw IbHUFgjoXyA62seXCreCXav6wf B8mwc9UmpU5aQXHpeIPcj6PiuD O1PSv4IsmxUKN3 [facility] Work Phone: Laboratory comment Darío (Report) y9lfgGJuRUYgh2jfGXOkaSNgRi EwMzNcZnRuYmpcdWMxIHtccnRm QPqsb3ZxA1UzDqRuWWvizwSoAA WpYjvgtbtoWVHgJIJ1tgToBKMw DAhaLTEfTCqqIy3ayCIkgFlfEr PbOLOmo9yggkCBWCuuQZRPKKz0 o3ltUGQyNoR4hQWbTTfmS2orfk XndFIcJ4Sxg2CzXUv3rP85TOZo iK3neGSjVCklqiGuIuB3EMliUP OkFtI3DBEyfPZpCBZfA0srQEAn YGrmLOCoKXkfmZUsEYJ1eAnvx6 C3yVOfdTIauWhaLrUvZiVzIlNO i7BiBIr2lLgbT8LuQKStVyM7xP MzBXSsHOmeFVSgIGNcdwS5sH08 QSdcsaE9tXFjg8Cyx31ja727kW 6mwBFcPPP7NMYaFSRbsXSsUZCi ZGL6VTJukIUkR8yjMeYtlRDfZ4 ShRnDweLYiR8UoSmCkiBYlT7Lb UoBffDMqDXMkcJQ1EFosc385QR L5KiEcYS9gR6Dvm4Z8aY6iqPWa MVNgaEIzPmFsGNUuuq6rqVXjJM cwo1QkLXR6nfW2tTXrcDTdXNPf QO58Lhykk6VaOcaxFVN5LFXkrl Tlq3Cer1nxSrOgeaQjQ2xbH7Lh TLOjDRPmPLQjNoVatyRhq1Xmq1 IfrQFgeVh7b5wxVNLaFRAboJzn q6nyMRW8NRJjE2T1cITko8saDH vyCHAovGJ7jnU7KRpgEMLxigB0 yaR0MXslNOElpWA0vjS4CNbmIA YqKuF4wcO4HMwmGVEoCRW5JqXy OGNls9YlpqiwEvKdy7DbjALcKF mqJ69ru685FPVfesJiM8bqbDZe fghfaTRyfvinJGinczI6UVZeQD BsYWluXGYxXGZzMjBcbGFuZzEw MzNcaGljaFxmMVxkYmNoXGYxXG okX1ebZzSmGfJhQWNQxOU0gXXu k4ivheL5eJEmFZ4pPPBgbJXgjh Gox7D4WIV1cQZlaI1gwMDbHUUe vZWuglJmkx50aHGdoDO5GIAzSF ZppVGhrZ6qGDFcNBFBzF2yaSUO ttZnpqCrHRVxfAhswv2OzTKbdc 6gmOFeU4PjrAhptXKeMMCaDBBl mIdhnUVmAVEkUTIyqnrad3NsLM EivKBzF5ImEE5mMUAbww07 [facility] Work Phone: Pathology report Cancer Narrative [facility] Work Phone: Pathology report comments [Interpretation] Narrative y3aqxELdLGYkxZXxILOtEpe8nZ Orb1V4dsvmPK2xnGwzoUe7xZkq UUWtqoD4lNJrWUoph4soQUH0r5 piykpyPLTuLFslAc8beMRweEep IzTdNXCvSCh4gS07QETdeX3jlG HdXRb4XKExfOVoxiFqCnPfKOGb zYXqtIO9TIIrBR3nfjnaSMnaAQ saZEJlhxM2WEWfpHXoF4XrOQFh JA1zawklQGH4FZrfEJJuPPO6Fr KrGERhm9Buudq1JnQrtJWpNEvf L7blrCSozjenVPLnJaSfFTReJT DsZpXSUtNiShruPQ0hvE1koDvs xR6zoIQtwXN6aowrh5d1nWUXsp RlcnByZXRhdGlvbiwgcGVtYnJv uMq4oC3sIomfGTFnGBcSNNFFPK RBKVxwYXJccGFyXHFsXGIwIEJs z9XkWPNcBQF6RPVSIXtaPVOthF CzMUwquKNhaKCitZQ7fK5cVeVL gXtyWGY3rILgl2Xan20dwHJpRG ZcnzMIeW9yeaIRgh2qt5S9kI5e XLVii0CaFAaCNJIkMiY3PCXcuJ WfYSRsqtihZHKsBN35QE3oCJIe dXNlOlxwYXIgUEQtTDEgMjJDMy HlpQCBSCVcl1t9zUONncZebqVh YHGblWtzlkXkoaMfJMP4FAhtgT C5qOZkSQgsnRKro5hku0NvM7fr bWljYWwgYXNzYXkgdXNpbmcgTW 2rl1Uho02scVOXe3IeOBUXykWv RHEAHGasFWPAfN9eLWEoKmDkRX rggXIdQHAtLAXxmpA8u3FmqO7m dGhlIGRldGVjdGlvbiBvZiBQRC 4UVPPkow04OErmFNzuWQOwic5l bGluLWZpeGVkLCBwYXJhZmZpbi 8prGWuGBJwQKMnAwTBWKdlnv0a LXNtYWxsIGNlbGwgbHVuZyBjYW 5yUHOoJJ0XU3lOTQP7iMFguKYq hLNcqexnaOsjLY9nyBs9vGL4IM RldGVjdGlvbiBvbiBhIFZlbnRh iwFsIaNaN5qMBDJbRPHylDHbZc ELyBDrj4ZvY9vrMW4nj7VdeVn1 xWVvKWOxmuQ4IDX2kL7jOAYnm2 FpMEPln088YLfjKYN3NRluBMG3 XTPhTOA6cVEfeGCphZTiz0BqM2 ZqgRXiqJ3pAdMvY32yk6lhICMq GGJfTRCsgHJ6EOFak2IoIOAfqZ QupWpwic7cHIbcauXhm5TypQKh zlSducKaN2S8EYZiEDFoAJ5cDW ydGXheKYiiNW90tYN4qF4yCE5U U5xUQYOzeUlvmsVtIGMjmzH6fn RdaK6ywjKkh2a9nYKeNL7qjc8s sPe4ySOiWYzIIHrJDnHPCWdzRZ VbixvpOLQdJNP6zP5gr2lcT1p6 SRBeyiPZVH2FACGvui77DKwhFW M9mSNdg8Bbb91ljEDeKXH3BDFf eZ3vNMKfeCS2h1rtCxINhM7giz CZal3ny5X7sN8dTXSnv4IlMXqN UAOlCBL4jHiedXTyunK1tVZyiS ZnS7EqqCHvRSVqPbY0tQEvdXOy sCOrz9TcO2FnbCBku8tdj7zhSy JxLMN1wTJaKL7nFSXmmCPaBISr RU6irJRrCU7lKLK2WZyvoS9fTM B3WHOsuWQcdlYpgxPsgTlyPUsl WQEuQBImrDzvdJOhqUWnGIQ3fU 7vHV4bYWKtpnZ4PHhrffYcsEne puFcpZTiuFYuPYGlHP67ZY5xGE dlZnZlIHBhdGllbnRzKSwgdGhl IHNwZWNpbWVuIGlzIGNvbnNpZG TgMMFkPWZsARKioK6duIWbqvSv aWYgdGhlIFRQUyBpcyBlcXVhbC J9jbHrlwMvqiXamOVoQMQtND7g SPGybGFfF1DdbH1zZO1cpKtsON IgnLBrdawom9Hzv1Vxo31rGQto bmUgdGhlcmFweSwgdGhlIHNwZW NpbWVuIGlzIGNvbnNpZGVyZWQg oQ7awBDqomEboQFqmDekKWIVLw TxbzAbmNWcjNU4aeStoiIthhTx dJLyDXSoGI6oDIJmMSWwZX06Ji xwYXJccGFyXGJcdWwgUmVmZXJl bmNlIFJhbmdlOlxwYXJcYjBcdW axDRxtS2dwLJrezqVpd2batqP+ PTUwJSBUUFNccGFyIExvdyBFeH UnXGIooR7fPIPbINpjJLSCB2xw GWMpJb1lNFxjsoYpw6ffsdQ9YG UgVFBTXHBhclxwYXIgVGhpcyBh w4LyfWFpanO3SKapNUQ1SVGlGN 1aEPCEKA2fwUPum2HbJLEly7Jq nWOpIjIsEZ6fHQMkn7ZoR4jcKT 0dQW5xbBdjTRVzmwNhtWmoa8Uf QCKwo6BbW8akXD9ssLuxSKBoYO Aas6MwcQWfr0sujIsaFQKwBTrq jDGckSXwnSHqGSllbEmhZ9Z1oW gsipAjabEfp5z8lDnwRFSoNFBo pKVif6BqnDB5WRVpxOroqEZfjQ Eme671ONb9OuGDmQWnuTErLF0w QJQorVCrIDBgCBkvc79dSOEnBH zgvPGqXLAawGecw9FupzUnMQJl pz68OGJyAS3ocjNinIBubYYuOS DqGEBmewDnc1EzqkGik91xVS5u BZNiZPsbHIMtV55aAV9pZB4pol Fqo3PtwUcnOGXuHNcxrkVeUFWu CFLulQ7jkEYgId3brZEbq4HvpA Zwd72mhCgjanTroFAahZ5fpuZH GKeoyWQ3RZDry317BTiuZPZlT3 9exW4vVJ48hpDln92pcLEbuaHx DEDyLRBjWGimTy1cSJBbvqkoCI M0QCiqaOCoCYKvx7ZvGStLLAAd VkMpWMTXR9RssKL2ANNmd3OuWc HxytTlfAXxtbLpIS6hKACxsODw obDkWZO5PESvRJTWNrZiTRFqv2 SaTR7iZDOseQjdEEIpoD4qc5Rj TLRbn36oSIDHnVRhXJFyt5HggL XwpXUjoOMbq6BfPIVuZKGxoE6g SNDsKY0jQLVpWWqjFAJjhqHkcs 9rxsKnPHUrBAFcX5JpvpfoxMvq gwUaRWWqir3zflTaHGL0OVMnAM GYJDHjzeTvUX16WA6eGSSffTwo wS4wlEVQlQ85cg3pkII2r8LpRP 9mr4ZsrDVFYLNkZTEaNW2gtfZa y4u7yLCQx9GzsTClnYRgM1sqdm ZtKZ5qLY9hTQdcSAeoW7VitPYr BxQQhGQdZmFMXDNbZSLmeh95NM ZjlOGhopAocToxgdY7NVO8IGFs RHucGBTdfh48O2wxtBIgyQVis2 I9NUVWAPJtFTMwRYfnYTCfiMOn oTAmjMIdlgP7w2XgATUsgdJngB bskTRfgBTdnXNwx3Afvv2iWYNj n6zthSuqLV1yqICdIKGeLZkdrl YmVOJmcfSmwbRyj2RoH1E3gA0d RHbmj8DmJz4vUSXjt9FzusIaWl PIsFdkJDghPo1bVBViayirfYSp V8RpmOdfzFYdWLDmTPOlQXPzGB UKzFtbhXKteGZLOOLpxyD4i3D0 THjbtYWvvzCkJE91LSXzNV8kvS LqvTLxQBBUPLWxYKGlYEK9RAus PjgxTCK6ctFoNZTbp5KeYWeiP6 zdA05vzIumgFf2eHEblQhjfKDg mDGsFDWybhP2n6C8ZUHci3Smip ytWDWXoVRzIONxXPbcX0Pmd4Gi GJxanzBtqDTjYh4ylNWrKYcwoO vpJXPbcc1sdmqrtNAeuT2wnZUi alPmSC8rLI1sO8T7bBZhUAYega Evi0jvNQgszXHaOMG3HPnjVEZa TFBswm8wkvtstYWmsE8sWZIpfm 0= [facility] Work Phone: Pathology report final diagnosis Narrative n3krkXHmMAIhiYAiUCCnQslwha XtYHFcmRThT8WlbmuxIOdqSL6y HX1ppSviyCPeuBWaFETrKrLat0 ubf891iHWrl4ctQIGYreimmAd9 tAfsZ45dz9W2WwqiP3vnDUHrBW rcDFHpRNbqfTNxXWg7CIOxkNYm jxLkLlHyJNZrzFEoeCA7TESeSR 1jthupKFmeAGixQHWmnoG6ALXj tOFrI8ElDVSsTY5qzhxtTFZ4AJ gcBZEnMWI0WyNiCRLrw4Trktl7 LgGzoAc8r8zjAHWdBDTlwSxwh9 ubIBE3QKIdpUHbH6xoeO0oCCMm LF2bperfi1exRCdhMZcsROKfwV V1aoY6BTCgzBVoW5XwpD9fYNGl WCShcdPuoGectE4zVwSlYkspFj QggNRnMIVgKOGRNQ3XLCUDB9VC MZANDAjZL06DBmnhFWQxGHHZY8 VZZUxsyEDvVGRmIMGoaGIeUz0s TALxEVwzCGNcoXvyT9DfR8nyh0 0fHRVzHCTeibJgGFWpw7DxphPa wj8dKE5vDTGrHFXkm8OsYmpwVP DoYI2jQXIzTKXDECDvX00iR8Fq gfNzrLRhmPNhjM5cvSEyvEAuxZ 7vklXrJkP6IDFgJPJnxJPmDSD5 DYcgGHQdakauQMKbHa40NIuaZK Pyy6FdS3NjjBEuJBCmKLFfb0p3 mFChIFAdfpUXBEEpWNWlXCq8Vz MpIGFuZCBDSzcsIHdoaWxlIHRo KPygXUDpFP2fI3L9jUPpEDQznl WoXZLwRGCwAXNxsP2xuY4wglJa uPMxh0S1UMNkCZHhZq42SKCjlZ Amuz7feUMtOWcaQmJjTEMyBEWe iC7ooY8ra8GzzZ8qxbEpvQj9tm GbmoQlbqQhn3X7MRMmEjFyr2lb ZDiiZBKsrOThJXJ4kF4wMIRrk0 NrOiAgQTFccGFyIFByZWxpbWlu NOB4IHBfi8Okd17mjfKyo7MaC2 FcK4xiLF7yJJRapVAyR0mfZe8t RGSiR0midCSuoCSWTHH2pJ7gOi AgQWRlcXVhdGVccGFyIFZpYWJs UAX5pL6chgUmcLZwBRe3NLCkTV sfWHDmwEKgNQV6SZGwTTHucpK3 yHQzraJ4FVFoPpIMUFjkZ5PujC FuLlxwYXJccGFyfQ== [facility] Work Phone: Pathology report gross observation Narrative v1ojaZZcZPPskBUNFEByZFNySS 3giXdqpJn9cAbbURSpubZ6rQIx OKrvg8ecYXP6p7scdvQRVbeiCW DiJFcvVCCpgcxfBzC7HOneAJEd uunyRFt4PXxfSJJaiUN6VSGhjV LbY6TdDLQrPY4nfsm1WNG2GLko HUQvQmW3FVVhRQq8DIBsyjJ8Ox puIMf2IGJzQXHhfIGmi0F3RJca j6vyv6JjG5Oxz3SmSHx7wU9Qq1 xgJzvpZ1tvomJnaQCeDfC1zZHf FGGtkYTrU761FXgtf2TmcCZfPV r2KHuxBBXeS2HdV3XsRIvtPqOf SGarYQWyPMHuTXbtPWPkO2RMRE SmMmg1XFl2HuPiYQr2SWn0OYFG KKA9XSauXvCgYDw5FRq8SZpjym zrGDq7TYOtDMokyWLpJU8ioLmy BxhyiDjrw9MhmKWnBRQoMDvhlL QgNTEwMDIgXFxkYiBPVlIgIiAy RHG8Cty2FRQdRDc8XOaeE1SKVV NuZLPkUHn2ODWbDnH0ERv3PXDP Dz2rNOR5TzN5GkZ0TDB6NKFxKU OxYY5xJOguqRBaXQnmc3FtBsNw JCDyZBbczhK2CCKyktJqAZofyB uwoN2miJGjNpYbYLTbX32ki6OE o9AqOI2EXNe9geUbqwCUBiozxR FymIjgRdgqnyPkUJGtQ2UmcjCr WDheDXSpnt0huDwoWAAfQJFrrT VkIHdpdGggdGhlIHBhdGllbnRc S8X6hyTiZT1aTMRnGRSoi8BobX DjcMVugX0vRRDyHI1lIKC1NkVx kL9wWn5jsEAltK8vIHs2lPPsWP 0hKVUrqFEedO0aWWP2IrzkJFQs TJ23oFIpbOyuCU8kmnJ7PFPnpv 30fw12QX1xZULdLvCxrBlhp2La QOOiALjsAZ96szBkC5wfQZkuyE mnZjW0zsLaZjXgtNOnIjMcqDVm FuBuO20kBWFiNOIszLJmlS3val WestIwlDGiiVT0XUZwhT6anX66 lsOqyqRbqwRsZ1Dnk7X8hIZgYD MvxmOTFnfeTKZwGYSleLQVa6Sh CLLGNrBFKh9SVEJpbDQNKBY8GP 2sSGliUUOmE0WdC3EcavO3k2pf dXozn1RbiPNoXA1ntFFwSU6XVY UeidJiKKvzqQwdnZ0oxWYcLwYi DQp9 [facility] Work Phone: [facility] Work Phone: CBC W Auto Differential pane l (Bld)on 03-28-2025 Basophils (Bld) [#/Vol] 0.03 10*3/uL [facility] Basophils/100 WBC (Bld) 0.3 % 0.0 - 2.0 % [facility] Eosinophils (Bld) [#/Vol] 0.29 10*3/uL [facility] Eosinophils/100 WBC (Bld) 3.1 % 0.0 - 6.0 % [facility] Erythrocyte distribution width (RBC) [Ratio] 12.9 % 11.5 - 14.5 % [facility] Hematocrit (Bld) [Volume fraction] 39.6 % 36.0 - 46.0 % [facility] Hemoglobin (Bld) [Mass/Vol] 13.0 g/dL 12.0 - 16.0 g/dL [facility] Immature granulocytes (Bld) [#/Vol] 0.05 10*3/uL [facility] Immature granulocytes/100 WBC (Bld) 0.5 % 0.0 - 0.9 % [facility] Interpretation and review of laboratory results Abnormal [facility] Lymphocytes (Bld) [#/Vol] 1.07 10*3/uL Low [facility] Lymphocytes/100 WBC (Bld) 11.3 % 13.0 - 44.0 % [facility] MCH (RBC) [Entitic mass] 31.5 pg 26.0 - 34.0 pg [facility] MCHC (RBC) [Mass/Vol] 32.8 g/dL 32.0 - 36.0 g/dL [facility] MCV (RBC) [Entitic vol] 96 fL 80 - 100 fL [facility] Monocytes (Bld) [#/Vol] 0.82 10*3/uL [facility] Monocytes/100 WBC (Bld) 8.6 % 2.0 - 10.0 % [facility] Neutrophils (Bld) [#/Vol] 7.22 10*3/uL [facility] Neutrophils/100 WBC (Bld) 76.2 % 40.0 - 80.0 % [facility] Nucleated RBC/100 WBC (Bld) [Ratio] 0.0 % [facility] Platelets (Bld) [#/Vol] 200 10*3/uL [facility] RBC (Bld) [#/Vol] 4.13 10*6/uL [facility] WBC (Bld) [#/Vol] 9.5 10*3/uL [facility] Basophils (Bld) [#/Vol] 0.03 x10*3/uL Normal 0.00-0.10 [facility] Comment on above: Performed By: #### 5 7021-8 ####DERRICK Hall ([id number])[facility] ([facility])[id number] [place] [address] [place] [address] Basophils/100 WBC (Bld) 0.3 % Normal 0.0-2.0 [facility] Comment on above: Performed By: #### 5 7021-8 ####DERRICK Hall ([id number])[facility] ([facility])[address] [place] [address] Eosinophils (Bld) [#/Vol] 0.29 x10*3/uL Normal 0.00-0.70 [facility] Comment on above: Performed By: #### 5 7021-8 ####DERRICK Hall ([id number])[facility] ([facility])[address] [place] [address] Eosinophils/100 WBC (Bld) 3.1 % Normal 0.0-6.0 [facility] Comment on above: Performed By: #### 5 7021-8 ####DERRICK Hall ([id number])[facility] ([facility])[address] [place] [address] Erythrocyte distribution width (RBC) [Ratio] 12.9 % Normal 11.5-14.5 [facility] Comment on above: Performed By: #### 5 7021-8 ####DERRICK Hall ([id number])[facility] ([facility])[id number] [place] [address] Hematocrit (Bld) [Volume fraction] 39.6 % Normal 36.0-46.0 [facility] Comment on above: Performed By: #### 5 7021-8 ####DERRICK Hall ([id number])[facility] ([facility])[address] [place] [address] Hemoglobin (Bld) [Mass/Vol] 13.0 g/dL Normal 12.0-16.0 [facility] Comment on above: Performed By: #### 5 7021-8 ####DERRICK Hall ([id number])[facility] ([facility])[address] [place] [address] Immature granulocytes (Bld) [#/Vol] 0.05 x10*3/uL Normal 0.00-0.70 [facility] Comment on above: Performed By: #### 5 7021-8 ####DERRICK Hall ([id number])[facility] ([facility])[address] [place] [address] Immature granulocytes/100 WBC (Bld) 0.5 % Normal 0.0-0.9 [facility] Comment on above: Result Comment: Arlen ture Granulocyte Count (IG) includes promyelocytes, myelocytes and metamyelocytes but does not include bands. Percent differential counts (%) should be interpreted in the context of the absolute cell counts (cells/UL). Performed By: #### 5 7021-8 ####DERRICK Hall ([id number])[facility] ([facility])[address] [place] [address] Lymphocytes (Bld) [#/Vol] 1.07 x10*3/uL Low 1.20-4.80 [facility] Comment on above: Performed By: #### 5 7021-8 ####DERRICK Hall ([id number])[facility] ([facility])[id number] [place] [address] Lymphocytes/100 WBC (Bld) 11.3 % Normal 13.0-44.0 [facility] Comment on above: Performed By: #### 5 7021-8 ####DERRICK Hall ([id number])[facility] ([facility])[address] [place] [address] MCH (RBC) [Entitic mass] 31.5 pg Normal 26.0-34.0 [facility] Comment on above: Performed By: #### 5 7021-8 ####DERRICK BRAR L ([id number])[facility] ([facility])[id number] [place] [address] MCHC (RBC) [Mass/Vol] 32.8 g/dL Normal 32.0-36.0 [facility] Comment on above: Performed By: #### 5 7021-8 ####DERRICK Hall ([id number])[facility] ([facility])[address] [place] [address] MCV (RBC) [Entitic vol] 96 fL Normal 80-100 [facility] Comment on above: Performed By: #### 5 7021-8 ####DERRICK Hall ([id number])[facility] ([facility])[address] [place] [address] Monocytes (Bld) [#/Vol] 0.82 x10*3/uL Normal 0.10-1.00 [facility] Comment on above: Performed By: #### 5 7021-8 ####DERRICK Hall ([id number])[facility] ([facility])[address] [place] [address] Monocytes/100 WBC (Bld) 8.6 % Normal 2.0-10.0 [facility] Comment on above: Performed By: #### 5 7021-8 ####DERRICK Hall ([id number])[facility] ([facility])[address] [place] [address] Neutrophils (Bld) [#/Vol] 7.22 x10*3/uL Normal 1.20-7.70 [facility] Comment on above: Result Comment: Perc ent differential counts (%) should be interpreted in the context of the absolute cell counts (cells/uL). Performed By: #### 5 7021-8 ####DERRICK Hall ([id number])[facility] ([facility])[address] [place] [address] Neutrophils/100 WBC (Bld) 76.2 % Normal 40.0-80.0 [facility] Comment on above: Performed By: #### 5 7021-8 ####DERRICK Hall ([id number])[facility] ([facility])[address] [place] [address] Nucleated RBC/100 WBC (Bld) [Ratio] 0.0 /100 WBCs Normal 0.0-0.0 [facility] Comment on above: Performed By: #### 5 7021-8 ####DERRICK Hall ([id number])[facility] ([facility])[address] [place] [address] Platelets (Bld) [#/Vol] 200 x10*3/uL Normal 150-450 [facility] Comment on above: Performed By: #### 5 7021-8 ####DERRICK Hall ([id number])[facility] ([facility])[address] [place] [address] RBC (Bld) [#/Vol] 4.13 x10*6/uL Normal 4.00-5.20 [facility] Comment on above: Performed By: #### 5 7021-8 ####DERRICK Hall ([id number])[facility] ([facility])[address] [place] [address] WBC (Bld) [#/Vol] 9.5 x10*3/uL Normal 4.4-11.3 [facility] Comment on above: Performed By: #### 5 7021-8 ####DERRICK Hall ([id number])[facility] ([facility])[address] [place] [address] CBC panel Auto (Bld)on 03-28 Erythrocyte distribution width (RBC) [Ratio] 12.8 % 11.5 - 14.5 % [facility] Hematocrit (Bld) [Volume fraction] 42.3 % 36.0 - 46.0 % [facility] Hemoglobin (Bld) [Mass/Vol] 13.0 g/dL 12.0 - 16.0 g/dL [facility] Interpretation and review of laboratory results Abnormal [facility] MCH (RBC) [Entitic mass] 31.5 pg 26.0 - 34.0 pg [facility] MCHC (RBC) [Mass/Vol] 30.7 g/dL Low 32.0 - 36.0 g/dL [facility] MCV (RBC) [Entitic vol] 102 fL High 80 - 100 fL [facility] Nucleated RBC/100 WBC (Bld) [Ratio] 0.0 % [facility] Platelets (Bld) [#/Vol] 201 10*3/uL [facility] RBC (Bld) [#/Vol] 4.13 10*6/uL [facility] WBC (Bld) [#/Vol] 9.2 10*3/uL [facility] Erythrocyte distribution width (RBC) [Ratio] 12.8 % Normal 11.5-14.5 [facility] Comment on above: Performed By: #### 5 8410-2 ####DERRICK Hall ([id number])[facility] ([facility])[address] [place] [address] Hematocrit (Bld) [Volume fraction] 42.3 % Normal 36.0-46.0 [facility] Comment on above: Performed By: #### 5 8410-2 ####DERRICK Hall ([id number])[facility] ([facility])[address] [place] [address] Hemoglobin (Bld) [Mass/Vol] 13.0 g/dL Normal 12.0-16.0 [facility] Comment on above: Performed By: #### 5 8410-2 ####DERRICK Hall ([id number])[facility] ([facility])[address] [place] [address] MCH (RBC) [Entitic mass] 31.5 pg Normal 26.0-34.0 [facility] Comment on above: Performed By: #### 5 8410-2 ####DERRICK Hall ([id number])[facility] ([facility])[address] [place] [address] MCHC (RBC) [Mass/Vol] 30.7 g/dL Low 32.0-36.0 [facility] Comment on above: Performed By: #### 5 8410-2 ####DERRICK Hall ([id number])[facility] ([facility])[address] [place] [address] MCV (RBC) [Entitic vol] 102 fL High 80-100 [facility] Comment on above: Performed By: #### 5 8410-2 ####DERRICK Hall ([id number])[facility] ([facility])[address] [place] [address] Nucleated RBC/100 WBC (Bld) [Ratio] 0.0 /100 WBCs Normal 0.0-0.0 [facility] Comment on above: Performed By: #### 5 8410-2 ####DERRICK Hall ([id number])[facility] ([facility])[address] [place] [address] Platelets (Bld) [#/Vol] 201 x10*3/uL Normal 150-450 [facility] Comment on above: Performed By: #### 5 8410-2 ####DERRICK Hall ([id number])[facility] ([facility])[id number] [place] [address] RBC (Bld) [#/Vol] 4.13 x10*6/uL Normal 4.00-5.20 [facility] Comment on above: Performed By: #### 5 8410-2 ####DERRICK Hall ([id number])[facility] ([facility])[id number] [place] [address] WBC (Bld) [#/Vol] 9.2 x10*3/uL Normal 4.4-11.3 [facility] Comment on above: Performed By: #### 5 8410-2 ####DERRICK Hall ([id number])[facility] ([facility])[id number] [place] [address] CHEST ABDOMEN PELVIS W IV CONTRASTon 03-28-2025 CT CHEST ABDOMEN PELVIS W IV CONTRAST Normal [facility] CT Chest and Abdomen and Pel vis W contrast Cookie 03-28-2025 [facility] Work Phone: Radiology Study observation (narrative) [facility] Work Phone: CT Chest and Abdomen and Pel vis W contrast IVOrdered By: Francis Ratliff on 03-28-2025 [facility] Work Phone: Glucose Test strip manual (B ld) [Mass/Vol]on 03-28-2025 Glucose [Mass/Vol] 101 mg/dL High 74-99 [facility] Comment on above: Performed By: #### 2 341-6 ####DERRICK Hall ([id number])[facility] ([facility])[id number] [place] [address] Glucose [Mass/Vol] 112 mg/dL High 74 - 99 mg/dL [facility] Interpretation and review of laboratory results Abnormal [facility] Glucose [Mass/Vol] 112 mg/dL High 74-99 [facility] Comment on above: Performed By: #### 2 341-6 ####DERRICK Hall ([id number])[facility] ([facility])[id number] [place] [address]990 Glucose [Mass/Vol] 113 mg/dL High 74 - 99 mg/dL [facility] Interpretation and review of laboratory results Abnormal [facility] Glucose [Mass/Vol] 113 mg/dL High 74-99 [facility] Comment on above: Performed By: #### 2 341-6 ####DERRICK Hall ([id number])[facility] ([facility])[address] [place] [address] 255[address] Glucose [Mass/Vol] 116 mg/dL High 74 - 99 mg/dL [facility] Interpretation and review of laboratory results Abnormal [facility] Glucose [Mass/Vol] 116 mg/dL High 74-99 [facility] Comment on above: Performed By: #### 2 341-6 ####DERRICK Hall ([id number])[facility] ([facility])[id number] [place] [address] Glucose [Mass/Vol] 109 mg/dL High 74-99 [facility] Comment on above: Performed By: #### 2 341-6 ####DERRICK Hall ([id number])[facility] ([facility])[id number] [place] [address] Glucose [Mass/Vol] 106 mg/dL High 74 - 99 mg/dL [facility] Interpretation and review of laboratory results Abnormal [facility] Glucose [Mass/Vol] 106 mg/dL High 74-99 [facility] Comment on above: Performed By: #### 2 341-6 ####DERRICK Hall ([id number])[facility] ([facility])[id number] [place] [address] Glucose [Mass/Vol] 107 mg/dL High 74 - 99 mg/dL [facility] Interpretation and review of laboratory results Abnormal [facility] Glucose [Mass/Vol] 107 mg/dL High 74-99 [facility] Comment on above: Performed By: #### 2 341-6 ####DERRICK Hall ([id number])[facility] ([facility])[address] [place] [address] Glucose [Mass/Vol] 119 mg/dL High 74 - 99 mg/dL [facility] Interpretation and review of laboratory results Abnormal [facility] Glucose [Mass/Vol] 119 mg/dL High 74-99 [facility] Comment on above: Performed By: #### 2 341-6 ####DERRICK Hall ([id number])[facility] ([facility])[id number] [place] [address]290 MR BRAIN W AND WO IV CONTRAS Ton 03-28-2025 MR BRAIN W AND WO IV CONTRAST Normal [facility] Magnesiumon 03-28-2025 Magnesium [Mass/Vol] 2.20 mg/dL 1.60 - 2.40 mg/dL [facility] Magnesium [Mass/Vol] 2.20 mg/dL Normal 1.60-2.40 [facility] Comment on above: Performed By: #### 1 9123-9 ####DERRICK Hall ([id number])[facility] ([facility])[id number] [place] [address]166 Magnesium [Mass/Vol]on 07-20 -2025 Interpretation and review of laboratory results Normal [facility] No Panel Informationon 03-28 [facility] Renal function 2000 panelon 03-28-2025 Albumin BCP dye [Mass/Vol] 3.1 g/dL Low 3.4 - 5.0 g/dL [facility], Inc Anion gap [Moles/Vol] 15 mmol/L 10 - 2 0 mmol/L [facility] Calcium [Mass/Vol] 9.0 mg/dL 8.6 - 10. 6 mg/dL [facility] Chloride [Moles/Vol] 97 mmol/L Low 98 - 10 7 mmol/L [facility] CO2 [Moles/Vol] 29 mmol/L 21 - 32 mmol/L [facility] Creatinine [Mass/Vol] 0.46 mg/dL Low 0.50 - 1.05 mg/dL [facility] eGFR - PINF [facility] Glucose [Mass/Vol] 99 mg/dL 74 - 99 mg/dL [facility] Interpretation and review of laboratory results Abnormal [facility] Phosphate [Mass/Vol] 2.5 mg/dL 2.5 - 4 .9 mg/dL [facility] Potassium [Moles/Vol] 3.8 mmol/L 3.5 - 5.3 mmol/L [facility] Sodium [Moles/Vol] 137 mmol/L 136 - 145 mmol/L [facility] Urea nitrogen [Mass/Vol] 19 mg/dL 6 - 23 mg/dL [facility] Albumin BCP dye [Mass/Vol] 3.1 g/dL Low 3.4-5.0 [facility] Comment on above: Performed By: #### 2 4362-6 ####DERRICK Hall ([id number])[facility] ([facility])[address] [place] [address] Anion gap [Moles/Vol] 15 mmol/L Normal 10-20 [facility] Comment on above: Performed By: #### 2 4362-6 ####DERRICK Hall ([id number])[facility] ([facility])[address] [place] [address] Calcium [Mass/Vol] 9.0 mg/dL Normal 8.6-10.6 [facility] Comment on above: Performed By: #### 2 4362-6 ####DERRICK Hall ([id number])[facility] ([facility])[address] [place] [address] Chloride [Moles/Vol] 97 mmol/L Low 98-107 [facility] Comment on above: Performed By: #### 2 4362-6 ####DERRICK Hall ([id number])[facility] ([facility])[address] [place] [address] CO2 [Moles/Vol] 29 mmol/L Normal 21-32 [facility] Comment on above: Performed By: #### 2 4362-6 ####DERRICK Hall ([id number])[facility] ([facility])[address] [place] [address] Creatinine [Mass/Vol] 0.46 mg/dL Low 0.50-1.05 [facility] Comment on above: Performed By: #### 2 4362-6 ####DERRICK Hall ([id number])[facility] ([facility])[address] [place] [address] GFR/1.73 sq M.predicted MDRD (S/P/Bld) [Vol rate/Area] mL/min/{1.73_m2} Normal >60 [facility] Comment on above: Result Comment: Calc ulations of estimated GFR are performed using the 2020 CKD-EPI Study Refit equation without the race variable for the IDMS-Traceable creatinine methods.https://jasn.asnjournals.org/content/early/ N.1984398071 Performed By: #### 2 4362-6 ####DERRICK Hall ([id number])[facility] ([facility])[address] [place] [address] Glucose [Mass/Vol] 99 mg/dL Normal 74-99 [facility] Comment on above: Performed By: #### 2 4362-6 ####DERRICK Hall ([id number])[facility] ([facility])[address] [place] [address] Phosphate [Mass/Vol] 2.5 mg/dL Normal 2.5-4.9 [facility] Comment on above: Performed By: #### 2 4362-6 ####DERRICK Hall ([id number])[facility] ([facility])[address] [place] [address] Potassium [Moles/Vol] 3.8 mmol/L Normal 3.5-5.3 [facility] Comment on above: Performed By: #### 2 4362-6 ####DERRICK Hall ([id number])[facility] ([facility])[address] [place] [address] Sodium [Moles/Vol] 137 mmol/L Normal 136-145 [facility] Comment on above: Performed By: #### 2 4362-6 ####DERRICK Hall ([id number])[facility] ([facility])[address] [place] [address] Urea nitrogen [Mass/Vol] 19 mg/dL Normal 6-23 [facility] Comment on above: Performed By: #### 2 4362-6 ####DERRICK Hall ([id number])[facility] ([facility])[address] [place] [address] Albumin BCP dye [Mass/Vol] 3.1 g/dL Low 3.4 - 5.0 g/dL [facility] Anion gap [Moles/Vol] 14 mmol/L 10 - 2 0 mmol/L [facility] Calcium [Mass/Vol] 9.1 mg/dL 8.6 - 10. 6 mg/dL [facility] Chloride [Moles/Vol] 97 mmol/L Low 98 - 10 7 mmol/L [facility] CO2 [Moles/Vol] 34 mmol/L High 21 - 32 mmol/L [facility] Creatinine [Mass/Vol] 0.59 mg/dL 0.50 - 1.05 mg/dL [facility] eGFR - PINF [facility] Glucose [Mass/Vol] 100 mg/dL High 74 - 99 mg/dL [facility] Interpretation and review of laboratory results Abnormal [facility] Phosphate [Mass/Vol] 3.1 mg/dL 2.5 - 4 .9 mg/dL [facility] Potassium [Moles/Vol] 3.8 mmol/L 3.5 - 5.3 mmol/L [facility] Sodium [Moles/Vol] 141 mmol/L 136 - 145 mmol/L [facility] Urea nitrogen [Mass/Vol] 21 mg/dL 6 - 23 mg/dL [facility] Albumin BCP dye [Mass/Vol] 3.1 g/dL Low 3.4-5.0 [facility] Comment on above: Performed By: #### 2 4362-6 ####DERRICK Hall ([id number])[facility] ([facility])[address] [place] [address] Anion gap [Moles/Vol] 14 mmol/L Normal 10-20 [facility] Comment on above: Performed By: #### 2 4362-6 ####DERRICK Hall ([id number])[facility] ([facility])[address] [place] [address] Calcium [Mass/Vol] 9.1 mg/dL Normal 8.6-10.6 [facility] Comment on above: Performed By: #### 2 4362-6 ####DERRICK Hall ([id number])[facility] ([facility])[address] [place] [address] Chloride [Moles/Vol] 97 mmol/L Low 98-107 [facility] Comment on above: Performed By: #### 2 4362-6 ####DERRICK Hall ([id number])[facility] ([facility])[address] [place] [address] CO2 [Moles/Vol] 34 mmol/L High 21-32 [facility] Comment on above: Performed By: #### 2 4362-6 ####DERRICK Hall ([id number])[facility] ([facility])[address] [place] [address] Creatinine [Mass/Vol] 0.59 mg/dL Normal 0.50-1.05 [facility] Comment on above: Performed By: #### 2 4362-6 ####DERRICK Hall ([id number])[facility] ([facility])[address] [place] [address] GFR/1.73 sq M.predicted MDRD (S/P/Bld) [Vol rate/Area] mL/min/{1.73_m2} Normal >60 [facility] Comment on above: Result Comment: Calc ulations of estimated GFR are performed using the 2020 CKD-EPI Study Refit equation without the race variable for the IDMS-Traceable creatinine methods.https://jasn.asnjournals.org/content/early/ N.8614057166 Performed By: #### 2 4362-6 ####DERRICK Hall ([id number])[facility] ([facility])[address] [place] [address] Glucose [Mass/Vol] 100 mg/dL High 74-99 [facility] Comment on above: Performed By: #### 2 4362-6 ####DERRICK Hall ([id number])[facility] ([facility])[address] [place] [address] Phosphate [Mass/Vol] 3.1 mg/dL Normal 2.5-4.9 [facility] Comment on above: Performed By: #### 2 4362-6 ####DERRICK Hall ([id number])[facility] ([facility])[address] [place] [address] Potassium [Moles/Vol] 3.8 mmol/L Normal 3.5-5.3 [facility] Comment on above: Performed By: #### 2 4362-6 ####DERRICK Hall ([id number])[facility] ([facility])[address] [place] [address] Sodium [Moles/Vol] 141 mmol/L Normal 136-145 [facility] Comment on above: Performed By: #### 2 4362-6 ####DERRICK Hall ([id number])[facility] ([facility])[address] [place] [address] Urea nitrogen [Mass/Vol] 21 mg/dL Normal 6-23 [facility] Comment on above: Performed By: #### 2 4362-6 ####DERRICK Hall ([id number])[facility] ([facility])[address] [place] [address] XR CHEST 1 VIEWon 03-28-2025 XR CHEST 1 VIEW Normal [facility] XR Chest Single viewon 03-28 [facility]AL [facility]AL [facility] Work Phone: Radiology Study observation (narrative) [facility] Work Phone: XR Chest Single viewOrdered By: Shantanu Hui on 03-28-2025 [facility] Work Phone: CBC W Auto Differential pane l (Bld)on 03-27-2025 Basophils (Bld) [#/Vol] 0.03 x10*3/uL Normal 0.00-0.10 [facility] Comment on above: Performed By: #### 5 7021-8 ####DERRICK Hall ([id number])[facility] ([facility])[id number] [place] [address] Basophils/100 WBC (Bld) 0.3 % Normal 0.0-2.0 [facility] Comment on above: Performed By: #### 5 7021-8 ####DERRICK Hall ([id number])[facility] ([facility])[address] [place] [address] Eosinophils (Bld) [#/Vol] 0.34 x10*3/uL Normal 0.00-0.70 [facility] Comment on above: Performed By: #### 5 7021-8 ####DERRICK Hall ([id number])[facility] ([facility])[address] [place] [address] Eosinophils/100 WBC (Bld) 2.9 % Normal 0.0-6.0 [facility] Comment on above: Performed By: #### 5 7021-8 ####DERRICK Hall ([id number])[facility] ([facility])[address] [place] [address] Erythrocyte distribution width (RBC) [Ratio] 13.2 % Normal 11.5-14.5 [facility] Comment on above: Performed By: #### 5 7021-8 ####DERRICK Hall ([id number])[facility] ([facility])[address] [place] [address] Hematocrit (Bld) [Volume fraction] 40.0 % Normal 36.0-46.0 [facility] Comment on above: Performed By: #### 5 7021-8 ####DERRICK Hall ([id number])[facility] ([facility])[address] [place] [address] Hemoglobin (Bld) [Mass/Vol] 13.3 g/dL Normal 12.0-16.0 [facility] Comment on above: Performed By: #### 5 7021-8 ####DERRICK Hall ([id number])[facility] ([facility])[address] [place] [address] Immature granulocytes (Bld) [#/Vol] 0.05 x10*3/uL Normal 0.00-0.70 [facility] Comment on above: Performed By: #### 5 7021-8 ####DERRICK Hall ([id number])[facility] ([facility])[address] [place] [address] Immature granulocytes/100 WBC (Bld) 0.4 % Normal 0.0-0.9 [facility] Comment on above: Result Comment: Arlen ture Granulocyte Count (IG) includes promyelocytes, myelocytes and metamyelocytes but does not include bands. Percent differential counts (%) should be interpreted in the context of the absolute cell counts (cells/UL). Performed By: #### 5 7021-8 ####DERRICK Hall ([id number])[facility] ([facility])[address] [place] [address] Lymphocytes (Bld) [#/Vol] 0.87 x10*3/uL Low 1.20-4.80 [facility] Comment on above: Performed By: #### 5 7021-8 ####DERRICK Hall ([id number])[facility] ([facility])[id number] [place] [address] Lymphocytes/100 WBC (Bld) 7.5 % Normal 13.0-44.0 [facility] Comment on above: Performed By: #### 5 7021-8 ####DERRICK Hall ([id number])[facility] ([facility])[address] [place] [address] MCH (RBC) [Entitic mass] 31.4 pg Normal 26.0-34.0 [facility] Comment on above: Performed By: #### 5 7021-8 ####DERRICK Hall ([id number])[facility] ([facility])[address] [place] [address] MCHC (RBC) [Mass/Vol] 33.3 g/dL Normal 32.0-36.0 [facility] Comment on above: Performed By: #### 5 7021-8 ####DERRICK Hall ([id number])[facility] ([facility])[address] [place] [address] MCV (RBC) [Entitic vol] 94 fL Normal 80-100 [facility] Comment on above: Performed By: #### 5 7021-8 ####DERRICK Hall ([id number])[facility] ([facility])[address] [place] [address] Monocytes (Bld) [#/Vol] 0.80 x10*3/uL Normal 0.10-1.00 [facility] Comment on above: Performed By: #### 5 7021-8 ####DERRICK Hall ([id number])[facility] ([facility])[address]32 [place] [address] Monocytes/100 WBC (Bld) 6.9 % Normal 2.0-10.0 [facility] Comment on above: Performed By: #### 5 7021-8 ####DERRICK Hall ([id number])[facility] ([facility])[address] [place] [address] Neutrophils (Bld) [#/Vol] 9.49 x10*3/uL High 1.20-7.70 [facility] Comment on above: Result Comment: Perc ent differential counts (%) should be interpreted in the context of the absolute cell counts (cells/uL). Performed By: #### 5 7021-8 ####DERRICK Hall ([id number])[facility] ([facility])[address] [place] [address] Neutrophils/100 WBC (Bld) 82.0 % Normal 40.0-80.0 [facility] Comment on above: Performed By: #### 5 7021-8 ####DERRICK Hall ([id number])[facility] ([facility])[address] [place] [address] Nucleated RBC/100 WBC (Bld) [Ratio] 0.0 /100 WBCs Normal 0.0-0.0 [facility] Comment on above: Performed By: #### 5 7021-8 ####DERRICK Hall ([id number])[facility] ([facility])[address] [place] [address] Platelets (Bld) [#/Vol] 192 x10*3/uL Normal 150-450 [facility] Comment on above: Performed By: #### 5 7021-8 ####DERRICK Hall ([id number])[facility] ([facility])[address] [place] [address] RBC (Bld) [#/Vol] 4.24 x10*6/uL Normal 4.00-5.20 [facility] Comment on above: Performed By: #### 5 7021-8 ####DERRICK Hall ([id number])[facility])[address] [place] [address] WBC (Bld) [#/Vol] 11.6 x10*3/uL High 4.4-11.3 [facility] Comment on above: Performed By: #### 5 7021-8 ####DERRICK Hall ([id number])[facility])[address] [place] [address] CBC panel Auto (Bld)on 03-27 Erythrocyte distribution width (RBC) [Ratio] 13.0 % 11.5 - 14.5 % [facility] Hematocrit (Bld) [Volume fraction] 39.8 % 36.0 - 46.0 % [facility] Hemoglobin (Bld) [Mass/Vol] 13.3 g/dL 12.0 - 16.0 g/dL [facility] Interpretation and review of laboratory results Normal [facility] MCH (RBC) [Entitic mass] 31.7 pg 26.0 - 34.0 pg [facility] MCHC (RBC) [Mass/Vol] 33.4 g/dL 32.0 - 36.0 g/dL [facility] MCV (RBC) [Entitic vol] 95 fL 80 - 100 fL [facility] Nucleated RBC/100 WBC (Bld) [Ratio] 0.0 % [facility] Platelets (Bld) [#/Vol] 202 10*3/uL [facility] RBC (Bld) [#/Vol] 4.20 10*6/uL [facility] WBC (Bld) [#/Vol] 10.3 10*3/uL [facility] Erythrocyte distribution width (RBC) [Ratio] 13.0 % Normal 11.5-14.5 [facility] Comment on above: Performed By: #### 5 8410-2 ####DERRICK Hall ([id number])[facility] ([facility])[address] [place] [address] Hematocrit (Bld) [Volume fraction] 39.8 % Normal 36.0-46.0 [facility] Comment on above: Performed By: #### 5 8410-2 ####DERRICK Hall ([id number])[facility] ([facility])[address] [place] [address] Hemoglobin (Bld) [Mass/Vol] 13.3 g/dL Normal 12.0-16.0 [facility] Comment on above: Performed By: #### 5 8410-2 ####DERRICK Hall ([id number])[facility] ([facility])[address] [place] [address] MCH (RBC) [Entitic mass] 31.7 pg Normal 26.0-34.0 [facility] Comment on above: Performed By: #### 5 8410-2 ####DERRICK Hall ([id number])[facility] ([facility])[address] [place] [address] MCHC (RBC) [Mass/Vol] 33.4 g/dL Normal 32.0-36.0 [facility] Comment on above: Performed By: #### 5 8410-2 ####DERRICK Hall ([id number])[facility] ([facility])[address]143 [place] [address] MCV (RBC) [Entitic vol] 95 fL Normal 80-100 [facility] Comment on above: Performed By: #### 5 8410-2 ####DERRICK Hall ([id number])[facility] ([facility])[address] [place] [address] Nucleated RBC/100 WBC (Bld) [Ratio] 0.0 /100 WBCs Normal 0.0-0.0 [facility] Comment on above: Performed By: #### 5 8410-2 ####DERRICK Hall ([id number])[facility] ([facility])[address]63 [place] [address] Platelets (Bld) [#/Vol] 202 x10*3/uL Normal 150-450 [facility] Comment on above: Performed By: #### 5 8410-2 ####DERRICK Hall ([id number])[facility] ([facility])[address] [place] [address] RBC (Bld) [#/Vol] 4.20 x10*6/uL Normal 4.00-5.20 [facility] Comment on above: Performed By: #### 5 8410-2 ####DERRICK Hall ([id number])[facility] ([facility])[address] [place] [address] WBC (Bld) [#/Vol] 10.3 x10*3/uL Normal 4.4-11.3 [facility] Comment on above: Performed By: #### 5 8410-2 ####DERRICK Hall ([id number])[facility] ([facility])[address] [place] [address] Glucose Test strip manual (B ld) [Mass/Vol]on 03-27-2025 Glucose [Mass/Vol] 124 mg/dL High 74 - 99 mg/dL [facility] Interpretation and review of laboratory results Abnormal [facility] Glucose [Mass/Vol] 124 mg/dL High 74-99 [facility] Comment on above: Performed By: #### 2 341-6 ####DERRICK Hall ([id number])[facility] ([facility])[address] [place] [address] Glucose [Mass/Vol] 132 mg/dL High 74 - 99 mg/dL [facility] Glucose [Mass/Vol] 132 mg/dL High 74-99 [facility] Comment on above: Performed By: #### 2 341-6 ####DERRICK Hall ([id number])[facility] ([facility])[address]347 [place] [address] Glucose [Mass/Vol] 146 mg/dL High 74-99 [facility] Comment on above: Performed By: #### 2 341-6 ####DERRICK Hall ([id number])[facility] ([facility])[address] [place] [address] Glucose [Mass/Vol] 130 mg/dL High 74-99 [facility] Comment on above: Performed By: #### 2 341-6 ####DERRICK Hall ([id number])[facility] ([facility])[address]67 [place] [address] Glucose [Mass/Vol] 136 mg/dL High 74-99 [facility] Comment on above: Performed By: #### 2 341-6 ####DERRICK Hall ([id number])[facility] ([facility])[address]199 [place] [address] Magnesiumon 03-27-2025 Magnesium [Mass/Vol] 1.89 mg/dL 1.60 - 2.40 mg/dL [facility] Magnesium [Mass/Vol] 1.89 mg/dL Normal 1.60-2.40 [facility] Comment on above: Performed By: #### 1 9123-9 ####DERRICK Hall ([id number])[facility] ([facility])[address] [place] [address] Magnesium [Mass/Vol] 1.88 mg/dL Normal 1.60-2.40 [facility] Comment on above: Performed By: #### 1 9123-9 ####DERRICK Hall ([id number])[facility] ([facility])[address]68 [place] [address] Magnesium [Mass/Vol]on 03-27 Interpretation and review of laboratory results Normal [facility] No Panel Informationon 03-27 [facility] Test Comment The test request has been received by the lab and will be reviewed. [facility] Renal function 2000 panelon 03-27-2025 Albumin BCP dye [Mass/Vol] 3.2 g/dL Low 3.4 - 5.0 g/dL [facility] Anion gap [Moles/Vol] 15 mmol/L 10 - 2 0 mmol/L [facility] Calcium [Mass/Vol] 9.3 mg/dL 8.6 - 10. 6 mg/dL [facility] Chloride [Moles/Vol] 97 mmol/L Low 98 - 10 7 mmol/L [facility] CO2 [Moles/Vol] 35 mmol/L High 21 - 32 mmol/L [facility] Creatinine [Mass/Vol] 0.61 mg/dL 0.50 - 1.05 mg/dL [facility] eGFR - PINF [facility] Glucose [Mass/Vol] 129 mg/dL High 74 - 99 mg/dL [facility] Interpretation and review of laboratory results Abnormal [facility] Phosphate [Mass/Vol] 3.0 mg/dL 2.5 - 4 .9 mg/dL [facility] Potassium [Moles/Vol] 3.6 mmol/L 3.5 - 5.3 mmol/L [facility] Sodium [Moles/Vol] 143 mmol/L 136 - 145 mmol/L [facility] Urea nitrogen [Mass/Vol] 18 mg/dL 6 - 23 mg/dL [facility] Albumin BCP dye [Mass/Vol] 3.2 g/dL Low 3.4-5.0 [facility] Comment on above: Performed By: #### 2 4362-6 ####DERRICK Hall ([id number])[facility] ([facility])[address] [place] [address] Anion gap [Moles/Vol] 15 mmol/L Normal 10-20 [facility] Comment on above: Performed By: #### 2 4362-6 ####DERRICK Hall ([id number])[facility] ([facility])[address] [place] [address] Calcium [Mass/Vol] 9.3 mg/dL Normal 8.6-10.6 [facility] Comment on above: Performed By: #### 2 4362-6 ####DERRICK Hall ([id number])[facility] ([facility])[address] [place] [address] Chloride [Moles/Vol] 97 mmol/L Low 98-107 [facility] Comment on above: Performed By: #### 2 4362-6 ####DERRICK Hall ([id number])[facility] HOSPITAL)[address] [place] [address] CO2 [Moles/Vol] 35 mmol/L High 21-32 [facility] Comment on above: Performed By: #### 2 4362-6 ####DERRICK Hall ([id number])[facility] ([facility])[address] [place] [address] Creatinine [Mass/Vol] 0.61 mg/dL Normal 0.50-1.05 [facility] Comment on above: Performed By: #### 2 4362-6 ####DERRICK Hall ([id number])[facility] ([facility])[address] [place] [address] GFR/1.73 sq M.predicted MDRD (S/P/Bld) [Vol rate/Area] mL/min/{1.73_m2} Normal >60 [facility] Comment on above: Result Comment: Calc ulations of estimated GFR are performed using the 2020 CKD-EPI Study Refit equation without the race variable for the IDMS-Traceable creatinine methods.https://jasn.asnjournals.org/content/early// N.2115789311 Performed By: #### 2 4362-6 ####DERRICK Hall ([id number])[facility] ([facility])[address] [place] [address] Glucose [Mass/Vol] 129 mg/dL High 74-99 [facility] Comment on above: Performed By: #### 2 4362-6 ####DERRICK Hall ([id number])[facility] ([facility])[address] [place] [address] Phosphate [Mass/Vol] 3.0 mg/dL Normal 2.5-4.9 [facility] Comment on above: Performed By: #### 2 4362-6 ####DERRICK Hall ([id number])[facility] ([facility])[address] [place] [address] Potassium [Moles/Vol] 3.6 mmol/L Normal 3.5-5.3 [facility] Comment on above: Performed By: #### 2 4362-6 ####DERRICK Hall ([id number])[facility] ([facility])[address] [place] [address] Sodium [Moles/Vol] 143 mmol/L Normal 136-145 [facility] Comment on above: Performed By: #### 2 4362-6 ####DERRICK Hall ([id number])[facility] ([facility])[address] [place] [address] Urea nitrogen [Mass/Vol] 18 mg/dL Normal 6-23 [facility] Comment on above: Performed By: #### 2 4362-6 ####DERRICK Hall ([id number])[facility] ([facility])[address] [place] [address] Albumin BCP dye [Mass/Vol] 3.1 g/dL Low 3.4-5.0 [facility] Comment on above: Performed By: #### 2 4362-6 ####DERRICK Hall ([id number])[facility] ([facility])[address] [place] [address] Anion gap [Moles/Vol] 16 mmol/L Normal 10-20 [facility] Comment on above: Performed By: #### 2 4362-6 ####DERRICK Hall ([id number])[facility] ([facility])[address]363 [place] [address] Calcium [Mass/Vol] 9.5 mg/dL Normal 8.6-10.6 [facility] Comment on above: Performed By: #### 2 4362-6 ####DERRICK Hall ([id number])[facility] ([facility])[address] [place] [address] Chloride [Moles/Vol] 103 mmol/L Normal 98-107 [facility] Comment on above: Performed By: #### 2 4362-6 ####DERRICK Hall ([id number])[facility] ([facility])[address] [place] [address] CO2 [Moles/Vol] 31 mmol/L Normal 21-32 [facility] Comment on above: Performed By: #### 2 4362-6 ####DERRICK Hall ([id number])[facility] ([facility])[address] [place] [address] Creatinine [Mass/Vol] 0.71 mg/dL Normal 0.50-1.05 [facility] Comment on above: Performed By: #### 2 4362-6 ####DERRICK Hall ([id number])[facility] ([facility])[address]1972 [place] [address] GFR/1.73 sq M.predicted MDRD (S/P/Bld) [Vol rate/Area] mL/min/{1.73_m2} Normal >60 [facility] Comment on above: Result Comment: Calc ulations of estimated GFR are performed using the 2020 CKD-EPI Study Refit equation without the race variable for the IDMS-Traceable creatinine methods.https://jasn.asnjournals.org/content/early// N.4156027279 Performed By: #### 2 4362-6 ####DERRICK Hall ([id number])[facility] ([facility])[address]1942 [place] [address] Glucose [Mass/Vol] 133 mg/dL High 74-99 [facility] Comment on above: Performed By: #### 2 4362-6 ####DERRICK Hall ([id number])[facility] ([facility])[address] [place] [address] Phosphate [Mass/Vol] 3.1 mg/dL Normal 2.5-4.9 [facility] Comment on above: Performed By: #### 2 4362-6 ####DERRICK Hall ([id number])[facility] ([facility])[address] [place] [address] Potassium [Moles/Vol] 3.6 mmol/L Normal 3.5-5.3 [facility] Comment on above: Performed By: #### 2 4362-6 ####DERRICK Hall ([id number])[facility] ([facility])[address]20 [place] [address] Sodium [Moles/Vol] 146 mmol/L High 136-145 [facility] Comment on above: Performed By: #### 2 4362-6 ####DERRICK Hall ([id number])[facility] ([facility])[address] [place] [address] Urea nitrogen [Mass/Vol] 20 mg/dL Normal 6-23 [facility] Comment on above: Performed By: #### 2 4362-6 ####DERRICK Hall ([id number])[facility] ([facility])[address] [place] [address] CBC W Auto Differential pane l (Bld)on 03-26-2025 Basophils (Bld) [#/Vol] 0.03 x10*3/uL Normal 0.00-0.10 [facility] Comment on above: Performed By: #### 5 7021-8 ####DERRICK Hall ([id number])[facility] ([facility])[address] [place] [address] Basophils/100 WBC (Bld) 0.3 % Normal 0.0-2.0 [facility] Comment on above: Performed By: #### 5 7021-8 ####DERRICK Hall ([id number])[facility] ([facility])[address] [place] [address] Eosinophils (Bld) [#/Vol] 0.21 x10*3/uL Normal 0.00-0.70 [facility] Comment on above: Performed By: #### 5 7021-8 ####DERRICK Hall ([id number])[facility] ([facility])[address] [place] [address] Eosinophils/100 WBC (Bld) 2.1 % Normal 0.0-6.0 [facility] Comment on above: Performed By: #### 5 7021-8 ####DERRICK Hall ([id number])[facility] ([facility])[address]36 [place] [address] Erythrocyte distribution width (RBC) [Ratio] 13.3 % Normal 11.5-14.5 [facility] Comment on above: Performed By: #### 5 7021-8 ####DERRICK Hall ([id number])[facility] ([facility])[address]84 [place] [address] Hematocrit (Bld) [Volume fraction] 36.5 % Normal 36.0-46.0 [facility] Comment on above: Performed By: #### 5 7021-8 ####DERRICK Hall ([id number])[facility] ([facility])[address] [place] [address] Hemoglobin (Bld) [Mass/Vol] 12.0 g/dL Normal 12.0-16.0 [facility] Comment on above: Performed By: #### 5 7021-8 ####DERRICK Hall ([id number])[facility] ([facility])[address] [place] [address] Immature granulocytes (Bld) [#/Vol] 0.08 x10*3/uL Normal 0.00-0.70 [facility] Comment on above: Performed By: #### 5 7021-8 ####DERRICK Hall ([id number])[facility] ([facility])[address] [place] [address] Immature granulocytes/100 WBC (Bld) 0.8 % Normal 0.0-0.9 [facility] Comment on above: Result Comment: Arlen ture Granulocyte Count (IG) includes promyelocytes, myelocytes and metamyelocytes but does not include bands. Percent differential counts (%) should be interpreted in the context of the absolute cell counts (cells/UL). Performed By: #### 5 7021-8 ####DERRICK Hall ([id number])[facility] ([facility])[address] [place] [address] Lymphocytes (Bld) [#/Vol] 0.81 x10*3/uL Low 1.20-4.80 [facility] Comment on above: Performed By: #### 5 7021-8 ####DERRICK Hall ([id number])[facility] ([facility])[address] [place] [address] Lymphocytes/100 WBC (Bld) 8.1 % Normal 13.0-44.0 [facility] Comment on above: Performed By: #### 5 7021-8 ####DERRICK Hall ([id number])[facility] ([facility])[address] [place] [address] MCH (RBC) [Entitic mass] 30.8 pg Normal 26.0-34.0 [facility] Comment on above: Performed By: #### 5 7021-8 ####DERRICK Hall ([id number])[facility] ([facility])[address] [place] [address] MCHC (RBC) [Mass/Vol] 32.9 g/dL Normal 32.0-36.0 [facility] Comment on above: Performed By: #### 5 7021-8 ####DERRICK Hall ([id number])[facility] ([facility])[address] [place] [address] MCV (RBC) [Entitic vol] 94 fL Normal 80-100 [facility] Comment on above: Performed By: #### 5 7021-8 ####DERRICK Hall ([id number])[facility] ([facility])[address]89 [place] [address] Monocytes (Bld) [#/Vol] 0.69 x10*3/uL Normal 0.10-1.00 [facility] Comment on above: Performed By: #### 5 7021-8 ####DERRICK Hall ([id number])[facility] ([facility])[address]54 [place] [address] Monocytes/100 WBC (Bld) 6.9 % Normal 2.0-10.0 [facility] Comment on above: Performed By: #### 5 7021-8 ####DERRICK Hall ([id number])[facility] ([facility])[address] [place] [address] Neutrophils (Bld) [#/Vol] 8.13 x10*3/uL High 1.20-7.70 [facility] Comment on above: Result Comment: Perc ent differential counts (%) should be interpreted in the context of the absolute cell counts (cells/uL). Performed By: #### 5 7021-8 ####DERRICK Hall ([id number])[facility] ([facility])[address] [place] [address] Neutrophils/100 WBC (Bld) 81.8 % Normal 40.0-80.0 [facility] Comment on above: Performed By: #### 5 7021-8 ####DERRICK Hall ([id number])[facility] ([facility])[address] [place] [address] Nucleated RBC/100 WBC (Bld) [Ratio] 0.0 /100 WBCs Normal 0.0-0.0 [facility] Comment on above: Performed By: #### 5 7021-8 ####DERRICK Hall ([id number])[facility] ([facility])[address]159 [place] [address] Platelets (Bld) [#/Vol] 183 x10*3/uL Normal 150-450 [facility] Comment on above: Performed By: #### 5 7021-8 ####DERRICK Hall ([id number])[facility] ([facility])[address]19 [place] [address] RBC (Bld) [#/Vol] 3.90 x10*6/uL Low 4.00-5.20 [facility] Comment on above: Performed By: #### 5 7021-8 ####DERRICK Hall ([id number])[facility] ([facility])[address] [place] [address] WBC (Bld) [#/Vol] 10.0 x10*3/uL Normal 4.4-11.3 [facility] Comment on above: Performed By: #### 5 7021-8 ####DERRICK Hall ([id number])[facility] ([facility])[address]97 [place] [address] Gas panel (BldV)on 5 Base excess Calc (BldV) [Moles/Vol] 3.7 mmol/L High -2.0-3.0 [facility] Comment on above: Performed By: #### 2 4339-4 ####DERRICK Hall ([id number])[facility] ([facility])[address] [place] [address] CO2 (BldV) [Partial pressure] 43 mm Hg Normal 41-51 [facility] Comment on above: Performed By: #### 2 4339-4 ####DERRICK Hall ([id number])[facility] ([facility])[address] [place] [address] HCO3 (Bld) [Moles/Vol] 28.5 mmol/L High 22.0-26.0 [facility] Comment on above: Performed By: #### 2 4339-4 ####DERRICK Hall ([id number])[facility] ([facility])[address] [place] [address] Inhaled oxygen concentration 45 % Normal [facility] Comment on above: Performed By: #### 2 4339-4 ####DERRICK Hall ([id number])[facility] ([facility])[address]159 [place] [address] Oxygen (BldV) [Partial pressure] 56 mm Hg High 35-45 [facility] Comment on above: Performed By: #### 2 4339-4 ####DERRICK Hall ([id number])[facility] ([facility])[address] [place] [address] Oxygen saturation in Venous blood 90 % High 45-75 [facility] Comment on above: Performed By: #### 2 4339-4 ####DERRICK Hall ([id number])[facility] ([facility])[address] [place] [address] Oxyhemoglobin (BldV) [Mass fraction] 88.0 % High 45.0-75.0 [facility] Comment on above: Performed By: #### 2 4339-4 ####DERRICK Hall ([id number])[facility] ([facility])[address] [place] [address] pH (BldV) 7.43 [pH] Normal 7.33-7.43 [facility] Comment on above: Performed By: #### 2 4339-4 ####DERRICK Hall ([id number])[facility] ([facility])[address] [place] [address] Glucose Test strip manual (B ld) [Mass/Vol]on 03-26-2025 Glucose [Mass/Vol] 140 mg/dL High 74-[address] [place] [address] Comment on above: Performed By: #### 2 341-6 ####DERRICK Hall ([id number])[facility] ([facility])[address]70 [place] [address] Glucose [Mass/Vol] 163 mg/dL High [address] [place] [address] Comment on above: Performed By: #### 2 341-6 ####DERRICK Hall ([id number])[facility] ([facility])[address]85 [place] [address] Glucose [Mass/Vol] 195 mg/dL High [address] [place] [address] Comment on above: Performed By: #### 2 341-6 ####DERRICK Hall ([id number])[facility] ([facility])[address]907 [place] [address] Glucose [Mass/Vol] 191 mg/dL High [address] [place] [address] Comment on above: Result Comment: RN N OTIFIED Performed By: #### 2 341-6 ####DERRICK Hall ([id number])[facility] ([facility])[address]83 [place] [address] Glucose [Mass/Vol] 186 mg/dL High 74-99 [facility] Comment on above: Result Comment: CHARLES N OTIFIED Performed By: #### 2 341-6 ####DERRICK Hall ([id number])[facility] ([facility])[address]15 [place] [address] Glucose [Mass/Vol] 153 mg/dL High 74-99 [facility] Comment on above: Performed By: #### 2 341-6 ####DERRICK Hall ([id number])[facility] ([facility])[address]304 [place] [address] Magnesiumon 03-26-2025 Magnesium [Mass/Vol] 1.83 mg/dL Normal 1.60-2.40 [facility] Comment on above: Result Comment: MILD HEMOLYSIS DETECTED. The result may be falsely elevated due to hemolysis or other interferents. Clinical correlation is recommended. Repeat testing may be considered. Performed By: #### 1 9123-9 ####DERRICK Hall ([id number])[facility] ([facility])[address]195 [place] [address] Magnesium [Mass/Vol] 1.86 mg/dL Normal 1.60-2.40 [facility] Comment on above: Result Comment: MILD HEMOLYSIS DETECTED. The result may be falsely elevated due to hemolysis or other interferents. Clinical correlation is recommended. Repeat testing may be considered. Performed By: #### 1 9123-9 ####DERRICK Hall ([id number])[facility] ([facility])[address]702 [place] [address] Renal function 2000 panelon 03-26-2025 Albumin BCP dye [Mass/Vol] 3.2 g/dL Low 3.4-5.0 [facility] Comment on above: Performed By: #### 2 4362-6 ####DERRICK Hall ([id number])[facility] ([facility])[address]85 [place] [address] Anion gap [Moles/Vol] 16 mmol/L Normal 10-20 [facility] Comment on above: Performed By: #### 2 4362-6 ####DERRICK BRAR L ([id number])[facility] ([facility])[address]13 [place] [address] Calcium [Mass/Vol] 9.5 mg/dL Normal 8.6-10.6 [facility] Comment on above: Performed By: #### 2 4362-6 ####DERRICK BRAR L ([id number])[facility] ([facility])[address]65 [place] [address] Chloride [Moles/Vol] 101 mmol/L Normal 98-107 [facility] Comment on above: Performed By: #### 2 4362-6 ####DERRICK BRAR L ([id number])[facility] ([facility])[address]363 [place] [address] CO2 [Moles/Vol] 29 mmol/L Normal 21-32 [facility] Comment on above: Performed By: #### 2 4362-6 ####DERRICK BRAR L ([id number])[facility] ([facility])[address]121 [place] [address] Creatinine [Mass/Vol] 0.74 mg/dL Normal 0.50-1.05 [facility] Comment on above: Performed By: #### 2 4362-6 ####DERRICK BRAR L ([id number])[facility] ([facility])[address]62 [place] [address] GFR/1.73 sq M.predicted MDRD (S/P/Bld) [Vol rate/Area] mL/min/{1.73_m2} Normal >60 [facility] Comment on above: Result Comment: Calc ulations of estimated GFR are performed using the 2020 CKD-EPI Study Refit equation without the race variable for the IDMS-Traceable creatinine methods.https://jasn.asnjournals.org/content/early/ N.1304081395 Performed By: #### 2 4362-6 ####DERRICK Hall ([id number])[facility] ([facility])[address] [place] [address] Glucose [Mass/Vol] 152 mg/dL High 74-99 [facility] Comment on above: Performed By: #### 2 4362-6 ####DERRICK Hall ([id number])[facility] ([facility])[address]991 [place] [address] Phosphate [Mass/Vol] 3.1 mg/dL Normal 2.5-4.9 [facility] Comment on above: Result Comment: MILD HEMOLYSIS DETECTED. The result may be falsely elevated due to hemolysis or other interferents. Clinical correlation is recommended. Repeat testing may be considered. Performed By: #### 2 4362-6 ####DERRICK Hall ([id number])[facility] ([facility])[address]67 [place] [address] Potassium [Moles/Vol] 4.0 mmol/L Normal 3.5-5.3 [facility] Comment on above: Result Comment: MILD HEMOLYSIS DETECTED. The result may be falsely elevated due to hemolysis or other interferents. Clinical correlation is recommended. Repeat testing may be considered. Performed By: #### 2 4362-6 ####DERRICK Hall ([id number])[facility] ([facility])[address]331 [place] [address] Sodium [Moles/Vol] 142 mmol/L Normal 136-145 [facility] Comment on above: Performed By: #### 2 4362-6 ####DERRICK Hall ([id number])[facility] ([facility])[address]99 [place] [address] Urea nitrogen [Mass/Vol] 18 mg/dL Normal 6-23 [facility] Comment on above: Performed By: #### 2 4362-6 ####DERRICK Hall ([id number])[facility] ([facility])[address]79 [place] [address] Albumin BCP dye [Mass/Vol] 2.9 g/dL Low 3.4-5.0 [facility] Comment on above: Performed By: #### 2 4362-6 ####DERIRCK Hall ([id number])[facility] ([facility])[address]26 [place] [address] Anion gap [Moles/Vol] 13 mmol/L Normal 10-20 [facility] Comment on above: Performed By: #### 2 4362-6 ####DERRICK Hall ([id number])[facility] ([facility])[address] [place] [address] Calcium [Mass/Vol] 9.2 mg/dL Normal 8.6-10.6 [facility] Comment on above: Performed By: #### 2 4362-6 ####DERRICK Hall ([id number])[facility] ([facility])[address]603 [place] [address] Chloride [Moles/Vol] 103 mmol/L Normal 98-107 [facility] Comment on above: Performed By: #### 2 4362-6 ####DERRICK Hall ([id number])[facility] ([facility])[address]85 [place] [address] CO2 [Moles/Vol] 28 mmol/L Normal 21-32 [facility] Comment on above: Performed By: #### 2 4362-6 ####DERRICK Hall ([id number])[facility] ([facility])[address]34 [place] [address] Creatinine [Mass/Vol] 0.70 mg/dL Normal 0.50-1.05 [facility] Comment on above: Performed By: #### 2 4362-6 ####DERRICK Hall ([id number])[facility] ([facility])[address]182 [place] [address] GFR/1.73 sq M.predicted MDRD (S/P/Bld) [Vol rate/Area] mL/min/{1.73_m2} Normal >60 [facility] Comment on above: Result Comment: Calc ulations of estimated GFR are performed using the 2020 CKD-EPI Study Refit equation without the race variable for the IDMS-Traceable creatinine methods.https://jasn.asnjournals.org/content/early/ N.6993936692 Performed By: #### 2 4362-6 ####DERRICK Hall ([id number])[facility] ([facility])[address] [place] [address] Glucose [Mass/Vol] 183 mg/dL High 74-99 [facility] Comment on above: Performed By: #### 2 4362-6 ####DERRICK Hall ([id number])[facility] ([facility])[address]142 [place] [address] Phosphate [Mass/Vol] 2.9 mg/dL Normal 2.5-4.9 [facility] Comment on above: Result Comment: MILD HEMOLYSIS DETECTED. The result may be falsely elevated due to hemolysis or other interferents. Clinical correlation is recommended. Repeat testing may be considered. Performed By: #### 2 4362-6 ####DERRICK Hall ([id number])[facility] ([facility])[address] [place] [address] Potassium [Moles/Vol] 4.3 mmol/L Normal 3.5-5.3 [facility] Comment on above: Result Comment: MILD HEMOLYSIS DETECTED. The result may be falsely elevated due to hemolysis or other interferents. Clinical correlation is recommended. Repeat testing may be considered. Performed By: #### 2 4362-6 ####DERRICK Hall ([id number])[facility] ([facility])[address] [place] [address] Sodium [Moles/Vol] 140 mmol/L Normal 136-145 [facility] Comment on above: Performed By: #### 2 4362-6 ####DERRICK Hall ([id number])[facility] ([facility])[address] [place] [address] Urea nitrogen [Mass/Vol] 18 mg/dL Normal 6-23 [facility] Comment on above: Performed By: #### 2 4362-6 ####DERRICK Hall ([id number])[facility] ([facility])[address] [place] [address] XR CHEST 1 VIEWon 03-26-2025 XR CHEST 1 VIEW Normal [facility] CBC W Auto Differential pane l (Bld)on 03-25-2025 Basophils (Bld) [#/Vol] 0.03 x10*3/uL Normal 0.00-0.10 [facility] Comment on above: Performed By: #### 5 7021-8 ####DERRICK Hall ([id number])[facility] ([facility])[id number] [place] [id number] Basophils/100 WBC (Bld) 0.3 % Normal 0.0-2.0 [facility] Comment on above: Performed By: #### 5 7021-8 ####DERRICK Hall ([id number])[facility] ([facility])[address] [place] [address] Eosinophils (Bld) [#/Vol] 0.11 x10*3/uL Normal 0.00-0.70 [facility] Comment on above: Performed By: #### 5 7021-8 ####DERRICK Hall ([id number])[facility] ([facility])[address] [place] [address] Eosinophils/100 WBC (Bld) 1.3 % Normal 0.0-6.0 [facility] Comment on above: Performed By: #### 5 7021-8 ####DERRICK Hall ([id number])[facility] ([facility])[address] [place] [address] Erythrocyte distribution width (RBC) [Ratio] 13.2 % Normal 11.5-14.5 [facility] Comment on above: Performed By: #### 5 7021-8 ####DERRICK Hall ([id number])[facility] ([facility])[address] [place] [address] Hematocrit (Bld) [Volume fraction] 36.7 % Normal 36.0-46.0 [facility] Comment on above: Performed By: #### 5 7021-8 ####DERRICK Hall ([id number])[facility] ([facility])[address] [place] [address] Hemoglobin (Bld) [Mass/Vol] 12.1 g/dL Normal 12.0-16.0 [facility] Comment on above: Performed By: #### 5 7021-8 ####DERRICK Hall ([id number])[facility] ([facility])[address] [place] [address] Immature granulocytes (Bld) [#/Vol] 0.05 x10*3/uL Normal 0.00-0.70 [facility] Comment on above: Performed By: #### 5 7021-8 ####DERRICK Hall ([id number])[facility] ([facility])[address] [place] [address] Immature granulocytes/100 WBC (Bld) 0.6 % Normal 0.0-0.9 [facility] Comment on above: Result Comment: Ralen ture Granulocyte Count (IG) includes promyelocytes, myelocytes and metamyelocytes but does not include bands. Percent differential counts (%) should be interpreted in the context of the absolute cell counts (cells/UL). Performed By: #### 5 7021-8 ####DERRICK Hall ([id number])[facility] ([facility])[address] [place] [address] Lymphocytes (Bld) [#/Vol] 0.84 x10*3/uL Low 1.20-4.80 [facility] Comment on above: Performed By: #### 5 7021-8 ####DRERICK Hall ([id number])[facility] ([facility])[address] [place] [address] Lymphocytes/100 WBC (Bld) 9.6 % Normal 13.0-44.0 [facility] Comment on above: Performed By: #### 5 7021-8 ####DERRICK Hall ([id number])[facility] ([facility])[address] [place] [address] MCH (RBC) [Entitic mass] 31.3 pg Normal 26.0-34.0 [facility] Comment on above: Performed By: #### 5 7021-8 ####DERRICK Hall ([id number])[facility] ([facility])[address] [place] [address] MCHC (RBC) [Mass/Vol] 33.0 g/dL Normal 32.0-36.0 [facility] Comment on above: Performed By: #### 5 7021-8 ####DERRICK Hall ([id number])[facility] ([facility])[address] [place] [address] MCV (RBC) [Entitic vol] 95 fL Normal 80-100 [facility] Comment on above: Performed By: #### 5 7021-8 ####DERRICK Hall ([id number])[facility] ([facility])[address] [place] [address] Monocytes (Bld) [#/Vol] 0.77 x10*3/uL Normal 0.10-1.00 [facility] Comment on above: Performed By: #### 5 7021-8 ####DERRICK Hall ([id number])[facility] ([facility])[id number] [place] [address] Monocytes/100 WBC (Bld) 8.8 % Normal 2.0-10.0 [facility] Comment on above: Performed By: #### 5 7021-8 ####DERRICK Hall ([id number])[facility] ([facility])[address] [place] [address] Neutrophils (Bld) [#/Vol] 6.98 x10*3/uL Normal 1.20-7.70 [facility] Comment on above: Result Comment: Perc ent differential counts (%) should be interpreted in the context of the absolute cell counts (cells/uL). Performed By: #### 5 7021-8 ####DERRICK Hall ([id number])[facility] ([facility])[address]205 [place] [address] Neutrophils/100 WBC (Bld) 79.4 % Normal 40.0-80.0 [facility] Comment on above: Performed By: #### 5 7021-8 ####DERRICK Hall ([id number])[facility] ([facility])[address] [place] [address] Nucleated RBC/100 WBC (Bld) [Ratio] 0.0 /100 WBCs Normal 0.0-0.0 [facility] Comment on above: Performed By: #### 5 7021-8 ####DERRICK Hall ([id number])[facility] ([facility])[address] [place] [address] Platelets (Bld) [#/Vol] 171 x10*3/uL Normal 150-450 [facility] Comment on above: Performed By: #### 5 7021-8 ####DERRICK Hall ([id number])[facility] ([facility])[address] [place] [address] RBC (Bld) [#/Vol] 3.86 x10*6/uL Low 4.00-5.20 [facility] Comment on above: Performed By: #### 5 7021-8 ####DERRICK Hall ([id number])[facility] ([facility])[address]673 [place] [address] WBC (Bld) [#/Vol] 8.8 x10*3/uL Normal 4.4-11.3 [facility] Comment on above: Performed By: #### 5 7021-8 ####DERRICK Hall ([id number])[facility] ([facility])[address] [place] [address] ECG 12-LEADon 07-17-2025 ECG 12-LEAD Ventricular Rate 94 Atrial Rate 105 QRS Duration 132 Q-T Interval 392 QTC Calculation(Bazett) 490 R [place] 112 T [place] 105 QRS Count 15 Q Onset 220 [...] Ling ([id number]) on 03/29/2025 2:14:[address] [facility] Glucose Test strip manual (B ld) [Mass/Vol]on 03-25-2025 Glucose [Mass/Vol] 192 mg/dL High [address] [place] [address] Comment on above: Performed By: #### 2 341-6 ####DERRICK Hall ([id number])[facility] ([facility])[address] [place] [address] Glucose [Mass/Vol] 188 mg/dL High [address] [place] [address] Comment on above: Performed By: #### 2 341-6 ####DERRICK Hall ([id number])[facility] ([facility])[address]325 [place] [address] Glucose [Mass/Vol] 198 mg/dL High [address] [place] [address] Comment on above: Performed By: #### 2 341-6 ####DERRICK Hall ([id number])[facility] ([facility])[address]24 [place] [address] Glucose [Mass/Vol] 162 mg/dL High [address] [place] [address] Comment on above: Result Comment: RN N OTIFIED Performed By: #### 2 341-6 ####DERRICK Hall ([id number])[facility] ([facility])[address]80 [place] [address] Glucose [Mass/Vol] 129 mg/dL High [address] [place] [address] Comment on above: Result Comment: RN N OTIFIED Performed By: #### 2 341-6 ####DERRICK Hall ([id number])[facility] ([facility])[address]167 [place] [address] Glucose [Mass/Vol] 137 mg/dL High 74-99 [facility] Comment on above: Performed By: #### 2 341-6 ####DERRICK Hall ([id number])[facility] ([facility])[address]687 [place] [address] Glucose [Mass/Vol] 155 mg/dL High 74-99 [facility] Comment on above: Performed By: #### 2 341-6 ####DERRICK Hall ([id number])[facility] ([facility])[address]309 [place] [address] Magnesiumon 03-25-2025 Magnesium [Mass/Vol] 1.76 mg/dL Normal 1.60-2.40 [facility] Comment on above: Performed By: #### 1 9123-9 ####DERRICK Hall ([id number])[facility] ([facility])[address] [place] [address] Magnesium [Mass/Vol] 2.18 mg/dL Normal 1.60-2.40 [facility] Comment on above: Performed By: #### 1 9123-9 ####DERRICK Hall ([id number])[facility] ([facility])[address] [place] [address] Renal function 2000 panelon 03-25-2025 Albumin BCP dye [Mass/Vol] 2.8 g/dL Low 3.4-5.0 [facility] Comment on above: Performed By: #### 2 4362-6 ####DERRICK Hall ([id number])[facility] ([facility])[address]62 [place] [address] Anion gap [Moles/Vol] 14 mmol/L Normal 10-20 [facility] Comment on above: Performed By: #### 2 4362-6 ####DERRICK Hall ([id number])[facility] ([facility])[address] [place] [address] Calcium [Mass/Vol] 8.9 mg/dL Normal 8.6-10.6 [facility] Comment on above: Performed By: #### 2 4362-6 ####DERRICK Hall ([id number])[facility] ([facility])[address]697 [place] [address] Chloride [Moles/Vol] 104 mmol/L Normal 98-107 [facility] Comment on above: Performed By: #### 2 4362-6 ####DERRICK Hall ([id number])[facility] ([facility])[address]602 [place] [address] CO2 [Moles/Vol] 25 mmol/L Normal 21-32 [facility] Comment on above: Performed By: #### 2 4362-6 ####DERRICK Hall ([id number])[facility] ([facility])[address]68 [place] [address] Creatinine [Mass/Vol] 0.65 mg/dL Normal 0.50-1.05 [facility] Comment on above: Performed By: #### 2 4362-6 ####DERRICK Hall ([id number])[facility] ([facility])[address]222 [place] [address] GFR/1.73 sq M.predicted MDRD (S/P/Bld) [Vol rate/Area] mL/min/{1.73_m2} Normal >60 [facility] Comment on above: Result Comment: Calc ulations of estimated GFR are performed using the 2020 CKD-EPI Study Refit equation without the race variable for the IDMS-Traceable creatinine methods.https://jasn.asnjournals.org/content/early/ N.2096373394 Performed By: #### 2 4362-6 ####DERRICK Hall ([id number])[facility] ([facility])[address]092 [place] [address] Glucose [Mass/Vol] 200 mg/dL High 74-99 [facility] Comment on above: Performed By: #### 2 4362-6 ####DERRICK Hall ([id number])[facility] ([facility])[address]74 [place] [address] Phosphate [Mass/Vol] 2.6 mg/dL Normal 2.5-4.9 [facility] Comment on above: Performed By: #### 2 4362-6 ####DERRICK Hall ([id number])[facility] ([facility])[address]207 [place] [address] Potassium [Moles/Vol] 3.5 mmol/L Normal 3.5-5.3 [facility] Comment on above: Performed By: #### 2 4362-6 ####DERRICK Hall ([id number])[facility] ([facility])[address]378 [place] [address] Sodium [Moles/Vol] 139 mmol/L Normal 136-145 [facility] Comment on above: Performed By: #### 2 4362-6 ####DERRICK Hall ([id number])[facility] ([facility])[address] [place] [address] Urea nitrogen [Mass/Vol] 17 mg/dL Normal 6-23 [facility] Comment on above: Performed By: #### 2 4362-6 ####DERRICK Hall ([id number])[facility] ([facility])[address]347 [place] [address] Albumin BCP dye [Mass/Vol] 2.8 g/dL Low 3.4-5.0 [facility] Comment on above: Performed By: #### 2 4362-6 ####DERRICK BRAR L ([id number])[facility] ([facility])[address] [place] [address] Anion gap [Moles/Vol] 15 mmol/L Normal 10-20 [facility] Comment on above: Performed By: #### 2 4362-6 ####DERRICK BRAR L ([id number])[facility] ([facility])[address]79 [place] [address] Calcium [Mass/Vol] 9.0 mg/dL Normal 8.6-10.6 [facility] Comment on above: Performed By: #### 2 4362-6 ####DERRICK Hall ([id number])[facility] ([facility])[address]96 [place] [address] Chloride [Moles/Vol] 106 mmol/L Normal 98-107 [facility] Comment on above: Performed By: #### 2 4362-6 ####DERRICK Hall ([id number])[facility] ([facility])[address]31 [place] [address] CO2 [Moles/Vol] 23 mmol/L Normal 21-32 [facility] Comment on above: Performed By: #### 2 4362-6 ####DERRICK Hall ([id number])[facility] ([facility])[address]88 [place] [address] Creatinine [Mass/Vol] 0.66 mg/dL Normal 0.50-1.05 [facility] Comment on above: Performed By: #### 2 4362-6 ####DERRICK Hall ([id number])[facility] ([facility])[address] [place] [address] GFR/1.73 sq M.predicted MDRD (S/P/Bld) [Vol rate/Area] mL/min/{1.73_m2} Normal >60 [facility] Comment on above: Result Comment: Calc ulations of estimated GFR are performed using the 2020 CKD-EPI Study Refit equation without the race variable for the IDMS-Traceable creatinine methods.https://jasn.asnjournals.org/content/early/ N.7449860293 Performed By: #### 2 4362-6 ####DERRICK Hall ([id number])[facility] ([facility])[address]126 [place] [address] Glucose [Mass/Vol] 135 mg/dL High 74-99 [facility] Comment on above: Performed By: #### 2 4362-6 ####DERRICK ALVESTZER L ([id number])[facility] ([facility])[address]159 [place] [address] Phosphate [Mass/Vol] 3.5 mg/dL Normal 2.5-4.9 [facility] Comment on above: Result Comment: MILD HEMOLYSIS DETECTED. The result may be falsely elevated due to hemolysis or other interferents. Clinical correlation is recommended. Repeat testing may be considered. Performed By: #### 2 4362-6 ####DERRICK ALVESTZER L ([id number])[facility] ([facility])[address] [place] [address] Potassium [Moles/Vol] 4.3 mmol/L Normal 3.5-5.3 [facility] Comment on above: Result Comment: MILD HEMOLYSIS DETECTED. The result may be falsely elevated due to hemolysis or other interferents. Clinical correlation is recommended. Repeat testing may be considered. Performed By: #### 2 4362-6 ####DERRICK ALVESTZER L ([id number])[facility] ([facility])[address]67 [place] [address] Sodium [Moles/Vol] 140 mmol/L Normal 136-145 [facility] Comment on above: Performed By: #### 2 4362-6 ####DERRICK SIMER L ([id number])[facility] ([facility])[address]75 [place] [address] Urea nitrogen [Mass/Vol] 20 mg/dL Normal 6-23 [facility] Comment on above: Performed By: #### 2 4362-6 ####DERRICK CHOUDHARYMOTZER L ([id number])[facility] ([facility])[address]56 [place] [address] XR CHEST 1 VIEWon 03-25-2025 XR CHEST 1 VIEW Normal [facility] BRONCHOSCOPYon 03-24-2025 BRONCHOSCOPY Normal [facility] CBC W Auto Differential pane l (Bld)on 03-24-2025 Basophils (Bld) [#/Vol] 0.02 x10*3/uL Normal 0.00-0.10 [facility] Comment on above: Performed By: #### 5 7021-8 ####DERRICK Hall ([id number])[facility] ([facility])[address]98 [place] [address] Basophils/100 WBC (Bld) 0.2 % Normal 0.0-2.0 [facility] Comment on above: Performed By: #### 5 7021-8 ####DERRICK Hall ([id number])[facility] ([facility])[address]125 [place] [address] Eosinophils (Bld) [#/Vol] 0.20 x10*3/uL Normal 0.00-0.70 [facility] Comment on above: Performed By: #### 5 7021-8 ####DERRICK Hall ([id number])[facility] ([facility])[address]31 [place] [address] Eosinophils/100 WBC (Bld) 2.3 % Normal 0.0-6.0 [facility] Comment on above: Performed By: #### 5 7021-8 ####DERRICK Hall ([id number])[facility] ([facility])[address]283 [place] [address] Erythrocyte distribution width (RBC) [Ratio] 13.7 % Normal 11.5-14.5 [facility] Comment on above: Performed By: #### 5 7021-8 ####DERRICK Hall ([id number])[facility] ([facility])[address] [place] [address] Hematocrit (Bld) [Volume fraction] 36.2 % Normal 36.0-46.0 [facility] Comment on above: Performed By: #### 5 7021-8 ####DERRICK Hall ([id number])[facility] ([facility])[address] [place] [address] Hemoglobin (Bld) [Mass/Vol] 12.0 g/dL Normal 12.0-16.0 [facility] Comment on above: Performed By: #### 5 7021-8 ####DERRICK Hall ([id number])[facility] ([facility])[address]87 [place] [address] Immature granulocytes (Bld) [#/Vol] 0.02 x10*3/uL Normal 0.00-0.70 [facility] Comment on above: Performed By: #### 5 7021-8 ####DERRICK Hall ([id number])[facility] ([facility])[address]46 [place] [address] Immature granulocytes/100 WBC (Bld) 0.2 % Normal 0.0-0.9 [facility] Comment on above: Result Comment: Arlen ture Granulocyte Count (IG) includes promyelocytes, myelocytes and metamyelocytes but does not include bands. Percent differential counts (%) should be interpreted in the context of the absolute cell counts (cells/UL). Performed By: #### 5 7021-8 ####DERRICK Hall ([id number])[facility] ([facility])[address]87 [place] [address] Lymphocytes (Bld) [#/Vol] 1.02 x10*3/uL Low 1.20-4.80 [facility] Comment on above: Performed By: #### 5 7021-8 ####DERRICK Hall ([id number])[facility] ([facility])[address]413 [place] [address] Lymphocytes/100 WBC (Bld) 11.9 % Normal 13.0-44.0 [facility] Comment on above: Performed By: #### 5 7021-8 ####DERRICK Hall ([id number])[facility] ([facility])[address]032 [place] [address] MCH (RBC) [Entitic mass] 32.0 pg Normal 26.0-34.0 [facility] Comment on above: Performed By: #### 5 7021-8 ####DERRICK BRAR L (74541)[facility] ([facility])[address]75 [place] [address] MCHC (RBC) [Mass/Vol] 33.1 g/dL Normal 32.0-36.0 [facility] Comment on above: Performed By: #### 5 7021-8 ####DERRICK Hall ([id number])[facility] ([facility])[address]100 [place] [address] MCV (RBC) [Entitic vol] 97 fL Normal 80-100 [facility] Comment on above: Performed By: #### 5 7021-8 ####DERRICK Hall ([id number])[facility] ([facility])[address]63 [place] [address] Monocytes (Bld) [#/Vol] 0.66 x10*3/uL Normal 0.10-1.00 [facility] Comment on above: Performed By: #### 5 7021-8 ####DERRICK Hall ([id number])[facility] ([facility])[address]87 [place] [address] Monocytes/100 WBC (Bld) 7.7 % Normal 2.0-10.0 [facility] Comment on above: Performed By: #### 5 7021-8 ####DERRICK Hall ([id number])[facility] ([facility])[address]258 [place] [address] Neutrophils (Bld) [#/Vol] 6.67 x10*3/uL Normal 1.20-7.70 [facility] Comment on above: Result Comment: Perc ent differential counts (%) should be interpreted in the context of the absolute cell counts (cells/uL). Performed By: #### 5 7021-8 ####EDRRICK Hall ([id number])[facility] ([facility])[address]23 [place] [address] Neutrophils/100 WBC (Bld) 77.7 % Normal 40.0-80.0 [facility] Comment on above: Performed By: #### 5 7021-8 ####DERRICK Hall ([id number])[facility] ([facility])[address]471 [place] [address] Nucleated RBC/100 WBC (Bld) [Ratio] 0.0 /100 WBCs Normal 0.0-0.0 [facility] Comment on above: Performed By: #### 5 7021-8 ####DERRICK Hall ([id number])[facility] ([facility])[address]489 [place] [address] Platelets (Bld) [#/Vol] 161 x10*3/uL Normal 150-450 [facility] Comment on above: Performed By: #### 5 7021-8 ####DERRICK Hall ([id number])[facility] ([facility])[address]30 [place] [address] RBC (Bld) [#/Vol] 3.75 x10*6/uL Low 4.00-5.20 [facility] Comment on above: Performed By: #### 5 7021-8 ####DERRICK Hall ([id number])[facility] ([facility])[address]213 [place] [address] WBC (Bld) [#/Vol] 8.6 x10*3/uL Normal 4.4-11.3 [facility] Comment on above: Performed By: #### 5 7021-8 ####DERRICK Hall ([id number])[facility] ([facility])[address] [place] [address] Cancer related large scale g antwan targeted mutation analysis [employer] Doc (Bld/Tiss)on 03-24-2025 ELECTRONICALLY SIGNED BY Nael Ramirez MD PhD [facility] Comment on above: Performed By: #### 7 3977-1 ####NAEL RAMIREZ ([id number]) [facility] ([facility])[address] [place] [address] FOCUSED SOLID TUMOR DNA/RNA RESULTS SEE COMMENT [facility] Comment on above: Result Comment: Spec imen: Supernatant, [id number] Tumor Content: 30%MICROSATELLITE STATUS: Microsatellite Instability-High (MSI-H) is NOT DETECTED.DISEASE ASSOCIATED GENOMIC FINDINGS: CDKN2A p.E120* ([id number] c.358G>T)KRAS amplificationKRAS p.G12C ([id number] c.34G>T)INTERPRETATION AND POTENTIAL THERAPEUTIC OPTIONS:KRAS p.B12YKCQ RECOMMENDATIONS (Advanced Non Small Cell Lung Cancer):adagrasib [...] analytical performance characteristics have been determined by [facility]. This test has not been cleared or approved by the FDA; however, the FDA has determined that such approval is not necessary. The [facility] is certified under the Clinical Laboratory Improvement Amendments of 1988 (CLIA-88) as qualified to perform high complexity testing.PANEL GENE LIST:Hotspot Mutations (snv, indels <30bp): AKT1, ALK, APC, ARAF, B2M, BRAF, CCND1, CDK4, CDKN2A, CREBBP, CTNNB1, EGFR, EP300, ERBB2, ERBB3, ERBB4, ESR1, FBXW7, FGFR2, FGFR3, GNA11, GNAQ, H3F3A, LQRZ0N8B, HRAS, IDH1, IDH2, JAK1, JAK2, JAK3, KEAP1, KIT, KRAS, MAP2K1, MAP2K2, MET, MTOR, NFE2L2, NRAS, PDGFRA, PIK3CA, POLE, PTEN, RET, ROS1, SMAD4, STK11, SMO, TP53, U2AF1.Copy Number Variants (gain): ALK, AR, BRAF, CCND1, CDK4, CDK6, EGFR, ERBB2, FGFR1, FGFR2, FGFR3, FGFR4, KIT, KRAS, MET, MYC, MYCN, PDGFRA, PIK3CA.Fusions (tractor driver teamster genes): ALK, BRAF, EGFR, FGFR1, FGFR2, FGFR3, MET, NTRK1, NTRK2, NTRK3, RET, ROS1, TMPRSS2.MSI Status Markers: mononucleotide repeat loci.Not all exons of all genes are sequenced. Genome assembly ([id number]) was used for alignment and variant calling. Performed By: #### [id number] ####NAEL RAMIREZ ([id number]) [facility] ([facility])[address] [place] [address] ECG 12-LEADon 03-24-2025 ECG 12-LEAD Ventricular Rate 86 Atrial Rate 86 P-R Interval 184 QRS Duration 124 Q-T Interval 382 QTC Calculation(Bazett) 457 P Piedmont 43 R Piedmont 103 T Piedmont 121 QRS Count 14 Q Onset 221 P Onset 129 P Offset 191 T Offset 412 QTC Fredericia 431 Diagnosis Normal sinus rhythm with sinus arrhythmia Right bundle branch block Abnormal ECG No previous ECGs available Confirmed by Roc Ling ([id number]) on 03/29/2025 2:10:[address] [facility] Glucose Test strip manual (B ld) [Mass/Vol]on 03-24-2025 Glucose [Mass/Vol] 144 mg/dL High 74-99 [facility] Comment on above: Performed By: #### 2 341-6 ####DERRICK Hall ([id number])[facility] ([facility])[address] [place] [address] Glucose [Mass/Vol] 129 mg/dL High 74-99 [facility] Comment on above: Performed By: #### 2 341-6 ####DERRICK Hall ([id number])[facility] ([facility])[address] [place] [address] Glucose [Mass/Vol] 98 mg/dL Normal 74-99 [facility] Comment on above: Result Comment: RN N OTIFIED Performed By: #### 2 341-6 ####DERRICK Hall ([id number])[facility] ([facility])[address] [place] [address] Glucose [Mass/Vol] 128 mg/dL High 74-99 [facility] Comment on above: Result Comment: CHARLES Jara OTIFIED Performed By: #### 2 341-6 ####DERRICK Hall ([id number])[facility] ([facility])[address] [place] [address] Glucose [Mass/Vol] 122 mg/dL High 74-99 [facility] Comment on above: Performed By: #### 2 341-6 ####DERRICK Hall ([id number])[facility] ([facility])[address] [place] [address] Magnesiumon 03-24-2025 Magnesium [Mass/Vol] 1.89 mg/dL Normal 1.60-2.40 [facility] Comment on above: Performed By: #### 1 9123-9 ####DERRICK Hall ([id number])[facility] ([facility])[address] [place] [address] Non-observer electrical prospecting cytology studyon Non-gynecological cytology method study Normal [facility] Renal function 2000 panelon 03-24-2025 Albumin BCP dye [Mass/Vol] 2.8 g/dL Low 3.4-5.0 [facility] Comment on above: Performed By: #### 2 4362-6 ####DERRICK Hall ([id number])[facility] ([facility])[address] [place] [address] Anion gap [Moles/Vol] 11 mmol/L Normal 10-20 [facility] Comment on above: Performed By: #### 2 4362-6 ####DERRICK Hall ([id number])[facility] ([facility])[address] [place] [address] Calcium [Mass/Vol] 8.5 mg/dL Low 8.6-10.6 [facility] Comment on above: Performed By: #### 2 4362-6 ####DERRICK Hall ([id number])[facility] ([facility])[address] [place] [address] Chloride [Moles/Vol] 110 mmol/L High 98-107 [facility] Comment on above: Performed By: #### 2 4362-6 ####DERRICK Hall ([id number])[facility] ([facility])[address] [place] [address] CO2 [Moles/Vol] 24 mmol/L Normal 21-32 [facility] Comment on above: Performed By: #### 2 4362-6 ####DERRICK Hall ([id number])[facility] ([facility])[address] [place] [address] Creatinine [Mass/Vol] 0.63 mg/dL Normal 0.50-1.05 [facility] Comment on above: Performed By: #### 2 4362-6 ####DERRICK BRAR L ([id number])[facility] ([facility])[address] [place] [address] GFR/1.73 sq M.predicted MDRD (S/P/Bld) [Vol rate/Area] mL/min/{1.73_m2} Normal >60 [facility] Comment on above: Result Comment: Calc ulations of estimated GFR are performed using the 2020 CKD-EPI Study Refit equation without the race variable for the IDMS-Traceable creatinine methods.https://jasn.asnjournals.org/content/early// N.8780629151 Performed By: #### 2 4362-6 ####DERRICK Hall ([id number])[facility] ([facility])[address] [place] [address] Glucose [Mass/Vol] 104 mg/dL High 74-99 [facility] Comment on above: Performed By: #### 2 4362-6 ####DERRICK Hall ([id number])[facility] ([facility])[address] [place] [address] Phosphate [Mass/Vol] 2.7 mg/dL Normal 2.5-4.9 [facility] Comment on above: Performed By: #### 2 4362-6 ####DERRICK Hall ([id number])[facility] ([facility])[address] [place] [address] Potassium [Moles/Vol] 4.0 mmol/L Normal 3.5-5.3 [facility] Comment on above: Performed By: #### 2 4362-6 ####DERRICK Hall ([id number])[facility] ([facility])[address] [place] [address] Sodium [Moles/Vol] 141 mmol/L Normal 136-145 [facility] Comment on above: Performed By: #### 2 4362-6 ####DERRICK Hall ([id number])[facility] ([facility])[address] [place] [address] Urea nitrogen [Mass/Vol] 18 mg/dL Normal 6-23 [facility] Comment on above: Performed By: #### 2 4362-6 ####DERRICK Hall ([id number])[facility] ([facility])[address] [place] [address] Surgical pathology studyon 0 - Surgical pathology study Normal [facility] Troponin I.cardiac panelon 0 - Tropinin I.cardiac panel High sensitivity method 4 ng/L Normal 0-34 [facility] Comment on above: Order Comment: Less than [...] is performed using a differenttesting methodology [facility] than at [facility]. Direct result comparisons should onlybe made within the same method. Performed By: #### 8 9577-1 ####DERRICK Hall ([id number])[facility] ([facility])[address] [place] [id number] Tropinin I.cardiac panel High sensitivity method 4 ng/L Normal 0-34 [facility] Comment on above: Order Comment: Less than [...] is performed using a differenttesting methodology at [facility] than at [facility]. Direct result comparisons should onlybe made within the same method. Performed By: #### 8 9577-1 ####DERRICK Hall ([id number])[facility] ([facility])[address] [place] [address] XR CHEST 1 VIEWon 03-24-2025 XR CHEST 1 VIEW Normal [facility] XR CHEST 1 VIEW Normal [facility] CBC W Auto Differential pane l (Bld)on 03-23-2025 Basophils (Bld) [#/Vol] 0.03 x10*3/uL Normal 0.00-0.10 [facility] Comment on above: Performed By: #### 5 7021-8 ####DERRICK Hall ([id number])[facility] ([facility])[id number] [place] [address] Basophils/100 WBC (Bld) 0.2 % Normal 0.0-2.0 [facility] Comment on above: Performed By: #### 5 7021-8 ####DERRICK Hall ([id number])[facility] ([facility])[address] [place] [address] Eosinophils (Bld) [#/Vol] 0.08 x10*3/uL Normal 0.00-0.70 [facility] Comment on above: Performed By: #### 5 7021-8 ####DERRICK Hall ([id number])[facility] ([facility])[address] [place] [address] Eosinophils/100 WBC (Bld) 0.6 % Normal 0.0-6.0 [facility] Comment on above: Performed By: #### 5 7021-8 ####DERRICK Hall ([id number])[facility] ([facility])[address] [place] [address] Erythrocyte distribution width (RBC) [Ratio] 13.5 % Normal 11.5-14.5 [facility] Comment on above: Performed By: #### 5 7021-8 ####DERRICK Hall ([id number])[facility] ([facility])[address] [place] [address] Hematocrit (Bld) [Volume fraction] 39.3 % Normal 36.0-46.0 [facility] Comment on above: Performed By: #### 5 7021-8 ####DERRICK Hall ([id number])[facility] ([facility])[address] [place] [address] Hemoglobin (Bld) [Mass/Vol] 13.1 g/dL Normal 12.0-16.0 [facility] Comment on above: Performed By: #### 5 7021-8 ####DERRICK Hall ([id number])[facility] ([facility])[address] [place] [address] Immature granulocytes (Bld) [#/Vol] 0.07 x10*3/uL Normal 0.00-0.70 [facility] Comment on above: Performed By: #### 5 7021-8 ####DERRICK Hall ([id number])[facility] ([facility])[address] [place] [address] Immature granulocytes/100 WBC (Bld) 0.6 % Normal 0.0-0.9 [facility] Comment on above: Result Comment: Arlen ture Granulocyte Count (IG) includes promyelocytes, myelocytes and metamyelocytes but does not include bands. Percent differential counts (%) should be interpreted in the context of the absolute cell counts (cells/UL). Performed By: #### 5 7021-8 ####DERRICK Hall ([id number])[facility] ([facility])[address] [place] [address] Lymphocytes (Bld) [#/Vol] 1.43 x10*3/uL Normal 1.20-4.80 [facility] Comment on above: Performed By: #### 5 7021-8 ####DERRICK Hall ([id number])[facility] ([facility])[address] [place] [address] Lymphocytes/100 WBC (Bld) 11.4 % Normal 13.0-44.0 [facility] Comment on above: Performed By: #### 5 7021-8 ####DERRICK Hall ([id number])[facility] ([facility])[address] [place] [address] MCH (RBC) [Entitic mass] 31.6 pg Normal 26.0-34.0 [facility] Comment on above: Performed By: #### 5 7021-8 ####DERRICK Hall ([id number])[facility] ([facility])[address] [place] [address] MCHC (RBC) [Mass/Vol] 33.3 g/dL Normal 32.0-36.0 [facility] Comment on above: Performed By: #### 5 7021-8 ####DERRICK Hall ([id number])[facility] ([facility])[address] [place] [address] MCV (RBC) [Entitic vol] 95 fL Normal 80-100 [facility] Comment on above: Performed By: #### 5 7021-8 ####DERRICK Hall ([id number])[facility] ([facility])[address] [place] [address] Monocytes (Bld) [#/Vol] 0.76 x10*3/uL Normal 0.10-1.00 [facility] Comment on above: Performed By: #### 5 7021-8 ####DERRICK Hall ([id number])[facility] ([facility])[address] [place] [address] Monocytes/100 WBC (Bld) 6.0 % Normal 2.0-10.0 [facility] Comment on above: Performed By: #### 5 7021-8 ####DERRICK Hall ([id number])[facility] ([facility])[address] [place] [address] Neutrophils (Bld) [#/Vol] 10.22 x10*3/uL High 1.20-7.70 [facility] Comment on above: Result Comment: Perc ent differential counts (%) should be interpreted in the context of the absolute cell counts (cells/uL). Performed By: #### 5 7021-8 ####DERRICK Hall ([id number])[facility] ([facility])[address] [place] [address] Neutrophils/100 WBC (Bld) 81.2 % Normal 40.0-80.0 [facility] Comment on above: Performed By: #### 5 7021-8 ####DERRICK Hall (19591)[facility] ([facility])[address] [place] [address] Nucleated RBC/100 WBC (Bld) [Ratio] 0.0 /100 WBCs Normal 0.0-0.0 [facility] Comment on above: Performed By: #### 5 7021-8 ####DERRICK Hall ([id number])[facility] ([facility])[address] [place] [address] Platelets (Bld) [#/Vol] 193 x10*3/uL Normal 150-450 [facility] Comment on above: Performed By: #### 5 7021-8 ####DERRICK Hall ([id number])[facility] ([facility])[address] [place] [address] RBC (Bld) [#/Vol] 4.15 x10*6/uL Normal 4.00-5.20 [facility] Comment on above: Performed By: #### 5 7021-8 ####DERRICK Hall ([id number])[facility] ([facility])[address] [place] [address] WBC (Bld) [#/Vol] 12.6 x10*3/uL High 4.4-11.3 [facility] Comment on above: Performed By: #### 5 7021-8 ####DERRICK Hall ([id number])[facility] ([facility])[address] [place] [address] ECG 12-LEADon 03-23-2025 ECG 12-LEAD Ventricular Rate 85 Atrial Rate 85 P-R Interval 142 QRS Duration 118 Q-T Interval 378 QTC Calculation(Bazett) 449 P Piedmont 27 R Piedmont 104 T Piedmont 102 QRS Count 14 Q Onset 221 P Onset 150 P Offset 192 T Offset 410 QTC Fredericia 424 Diagnosis Normal sinus rhythm with sinus arrhythmia Incomplete right bundle branch block Possible Right ventricular hypertrophy Septal infarct , age undetermined ST & T wave abnormality, consider anterior ischemia Abnormal ECG Confirmed by Roc Ling ([id number]) on 03/24/2025 10:28:[address] [facility] Gas and Carbon monoxide and Electrolytes panel (BldA)on 03-23-2025 Anion gap 4 (BldA) [Moles/Vol] 9 mmo/L Low 10-25 [facility] Comment on above: Performed By: #### 9 3685-6 ####DERRICK Hall ([id number])[facility] ([facility])[address] [place] [address] Base excess Calc (Bld) [Moles/Vol] -1.6000 mmol/L Normal -2.0-3.0 [facility] Comment on above: Performed By: #### 9 3685-6 ####DERRICK Hall ([id number])[facility] ([facility])[address] [place] [address] Calcium.ionized (BldA) [Moles/Vol] 1.29 mmol/L Normal 1.10-1.33 [facility] Comment on above: Performed By: #### 9 3685-6 ####DERRICK Hall ([id number])[facility] ([facility])[address] [place] [address] Chloride (BldA) [Moles/Vol] 105 mmol/L Normal 98-107 [facility] Comment on above: Performed By: #### 9 3685-6 ####DERRICK Hall ([id number])[facility] ([facility])[address] [place] [address] CO2 (Bld) [Partial pressure] 50 mm Hg High 38-42 [facility] Comment on above: Performed By: #### 9 3685-6 ####DERRICK Hall ([id number])[facility] ([facility])[address] [place] [address] Glucose [Mass/Vol] 133 mg/dL High 74-99 [facility] Comment on above: Performed By: #### 9 3685-6 ####DERRICK Hall ([id number])[facility] ([facility])[address] [place] [address] HCO3 (Bld) [Moles/Vol] 25.2 mmol/L Normal 22.0-26.0 [facility] Comment on above: Performed By: #### 9 3685-6 ####DERRICK Hall ([id number])[facility] ([facility])[address] [place] [address] Hematocrit Est (Bld) [Volume fraction] 40.0 % Normal 36.0-46.0 [facility] Comment on above: Performed By: #### 9 3685-6 ####DERRICK Hall ([id number])[facility] ([facility])[address] [place] [address] Hemoglobin (Bld) [Mass/Vol] 13.3 g/dL Normal 12.0-16.0 [facility] Comment on above: Performed By: #### 9 3685-6 ####DERRICK Hall ([id number])[facility] ([facility])[address] [place] [address] Inhaled oxygen concentration 80 % Normal [facility] Comment on above: Performed By: #### 9 3685-6 ####DERRICK Hall ([id number])[facility] ([facility])[address] [place] [address] Lactate (BldA) [Moles/Vol] 0.7 mmol/L Normal 0.4-2.0 [facility] Comment on above: Performed By: #### 9 3685-6 ####DERRICK Hall ([id number])[facility] ([facility])[address] [place] [address] Oxygen (Bld) [Partial pressure] 62 mm Hg Low 85-95 [facility] Comment on above: Performed By: #### 9 3685-6 ####DERRICK Hall ([id number])[facility] ([facility])[address] [place] [address] Oxyhemoglobin (BldA) [Mass fraction] 90.5 % Low 94.0-98.0 [facility] Comment on above: Performed By: #### 9 3685-6 ####DERRICK Hall ([id number])[facility] ([facility])[address]373 [place] [address] pH (Bld) 7.31 [pH] Low 7.38-7.42 [facility] Comment on above: Performed By: #### 9 3685-6 ####DERRICK Hall ([id number])[facility] ([facility])[address] [place] [address] Potassium (BldA) [Moles/Vol] 3.9 mmol/L Normal 3.5-5.3 [facility] Comment on above: Performed By: #### 9 3685-6 ####DERRICK Hall ([id number])[facility] ([facility])[address] [place] [address] Sodium (BldA) [Moles/Vol] 135 mmol/L Low 136-145 [facility] Comment on above: Performed By: #### 9 3685-6 ####DERRICK Hall ([id number])[facility] ([facility])[address] [place] [address] Glucose Test strip manual (B ld) [Mass/Vol]on 03-23-2025 Glucose [Mass/Vol] 113 mg/dL High 74-99 [facility] Comment on above: Performed By: #### 2 341-6 ####DERRICK Hall ([id number])[facility] ([facility])[address] [place] [address] Glucose [Mass/Vol] 119 mg/dL High 74-99 [facility] Comment on above: Performed By: #### 2 341-6 ####DERRICK Hall ([id number])[facility] ([facility])[address] [place] [address] Glucose [Mass/Vol] 113 mg/dL High 74-99 [facility] Comment on above: Performed By: #### 2 341-6 ####DERRICK Hall ([id number])[facility] ([facility])[address]683 [place] [address] Glucose [Mass/Vol] 113 mg/dL High 74-[address] [place] [address] Comment on above: Result Comment: CHARLES Jara OTIFIED Performed By: #### 2 341-6 ####DERRICK Hall ([id number])[facility] ([facility])[address] [place] [address] Glucose [Mass/Vol] 135 mg/dL High 74-99 [facility] Comment on above: Result Comment: CHARLES Jara OTIFIED Performed By: #### 2 341-6 ####DERRICK Hall ([id number])[facility] ([facility])[address] [place] [address] Glucose [Mass/Vol] 133 mg/dL High [address] [place] [address] Comment on above: Performed By: #### 2 341-6 ####DERRICK Hall ([id number])[facility] ([facility])[address]26 [place] [address] Magnesiumon 03-23-2025 Magnesium [Mass/Vol] 2.27 mg/dL Normal 1.60-2.40 [facility] Comment on above: Performed By: #### 1 9123-9 ####DERRICK Hall ([id number])[facility] ([facility])[address]68 [place] [address] Renal function 2000 panelon 03-23-2025 Albumin BCP dye [Mass/Vol] 3.2 g/dL Low 3.4-5.0 [facility] Comment on above: Performed By: #### 2 4362-6 ####DERRICK Hall ([id number])[facility] ([facility])[address]07 [place] [address] Anion gap [Moles/Vol] 12 mmol/L Normal 10-20 [facility] Comment on above: Performed By: #### 2 4362-6 ####DERRICK Hall ([id number])[facility] ([facility])[address]213 [place] [address] Calcium [Mass/Vol] 9.6 mg/dL Normal 8.6-10.6 [facility] Comment on above: Performed By: #### 2 4362-6 ####DERRICK Hall ([id number])[facility] ([facility])[address]364 [place] [address] Chloride [Moles/Vol] 107 mmol/L Normal 98-107 [facility] Comment on above: Performed By: #### 2 4362-6 ####DERRICK Hall ([id number])[facility] ([facility])[address]647 [place] [address] CO2 [Moles/Vol] 26 mmol/L Normal 21-32 [facility] Comment on above: Performed By: #### 2 4362-6 ####DERRICK Hall ([id number])[facility] ([facility])[address] [place] [address] Creatinine [Mass/Vol] 0.75 mg/dL Normal 0.50-1.05 [facility] Comment on above: Performed By: #### 2 4362-6 ####DERRICK BRAR L ([id number])[facility] ([facility])[address] [place] [address] Glomerular filtration rate/1.73 sq M.predicted 90 mL/min/1.73m*2 Normal >60 [facility] Comment on above: Result Comment: Calc ulations of estimated GFR are performed using the 2020 CKD-EPI Study Refit equation without the race variable for the IDMS-Traceable creatinine methods.https://jasn.asnjournals.org/content// N.4269956861 Performed By: #### 2 4362-6 ####DERRICK Hall ([id number])[facility] ([facility])[address] [place] [address] Glucose [Mass/Vol] 118 mg/dL High 74-99 [facility] Comment on above: Performed By: #### 2 4362-6 ####DERRICK Hall ([id number])[facility] ([facility])[address]67 [place] [address] Phosphate [Mass/Vol] 3.0 mg/dL Normal 2.5-4.9 [facility] Comment on above: Result Comment: MILD HEMOLYSIS DETECTED. The result may be falsely elevated due to hemolysis or other interferents. Clinical correlation is recommended. Repeat testing may be considered. Performed By: #### 2 4362-6 ####DERRICK Hall ([id number])[facility] ([facility])[address] [place] [address] Potassium [Moles/Vol] 4.5 mmol/L Normal 3.5-5.3 [facility] Comment on above: Result Comment: MILD HEMOLYSIS DETECTED. The result may be falsely elevated due to hemolysis or other interferents. Clinical correlation is recommended. Repeat testing may be considered. Performed By: #### 2 4362-6 ####DERRICK Hall ([id number])[facility] ([facility])[address] [place] [address] Sodium [Moles/Vol] 140 mmol/L Normal 136-145 [facility] Comment on above: Performed By: #### 2 4362-6 ####DERRICK Hall ([id number])[facility] ([facility])[address]365 [place] [address] Urea nitrogen [Mass/Vol] 19 mg/dL Normal 6-23 [facility] Comment on above: Performed By: #### 2 4362-6 ####DERRICK Hall ([id number])[facility] ([facility])[address] [place] [address] XR CHEST 1 VIEWon 03-23-2025 XR CHEST 1 VIEW Normal [facility] Bacteria identifiedon 2024 Bacteria identified Respiratory culture Nom (Unsp spec) Abnormal [facility] Comment on above: Performed By: #### 3 2355-0 ####DERRICK Hall ([id number])[facility] ([facility])[address] [facility] [place] [address] Bacteria identified Cx Nom (Bld) [facility] Comment on above: Performed By: #### 6 00-7 ####DERRICK Hall ([id number])[facility] SYSTEM LAB ([facility])[address] [facility] [place] [address] Bacteria identified Cx Nom (Bld) [facility] Comment on above: Performed By: #### 6 00-7 ####DERRICK Hall ([id number])[facility] ([facility])[address] [place] [address], [place] [address] Blood type and Indirect anti body screen panel (Bld)on 03-22-2025 ABO group Nom (Bld) A Normal [facility] Comment on above: Performed By: #### 3 4532-2 ####DERRICK Hall ([id number])[facility] ([facility])[address] [place] [address] Blood group antibody screen Ql Negative [facility] Comment on above: Performed By: #### 3 4532-2 ####DERRICK Hall ([id number])[facility] ([facility])[address] [place] [address], [place] [address] D Ag Ql (Bld) Positive [facility] Comment on above: Performed By: #### 3 4532-2 ####DERRICK Hall ([id number])[facility] ([facility])[address] [place] [address], [place] [address] CBC W Auto Differential pane l (Bld)on 03-22-2025 Basophils (Bld) [#/Vol] 0.01 x10*3/uL Normal 0.00-0.10 [facility] Comment on above: Performed By: #### 5 7021-8 ####DERRICK Hall ([id number])[facility] ([facility])[address] [facility] [place] [address] Basophils/100 WBC (Bld) 0.1 % Normal 0.0-2.0 [facility] Comment on above: Performed By: #### 5 7021-8 ####DERRICK Hall ([id number])[facility] ([facility])[address] [place] [address] Eosinophils (Bld) [#/Vol] 0.00 x10*3/uL Normal 0.00-0.70 [facility] Comment on above: Performed By: #### 5 7021-8 ####DERRICK Hall ([id number])[facility] ([facility])[id number] [place] [address] Eosinophils/100 WBC (Bld) 0.0 % Normal 0.0-6.0 [facility] Comment on above: Performed By: #### 5 7021-8 ####DERRICK Hall ([id number])[facility] ([facility])[address] [place] [address]21 Erythrocyte distribution width (RBC) [Ratio] 13.3 % Normal 11.5-14.5 [facility] Comment on above: Performed By: #### 5 7021-8 ####DERRICK Hall ([id number])[facility] ([facility])[address] [place] [address] Hematocrit (Bld) [Volume fraction] 44.2 % Normal 36.0-46.0 [facility] Comment on above: Performed By: #### 5 7021-8 ####DERRICK Hall ([id number])[facility] ([facility])[address] [place] [address] 15860 Hemoglobin (Bld) [Mass/Vol] 13.7 g/dL Normal 12.0-16.0 [facility] Comment on above: Performed By: #### 5 7021-8 ####DERRICK Hall ([id number])[facility] ([facility])[address] [place] [address] Immature granulocytes (Bld) [#/Vol] 0.14 x10*3/uL Normal 0.00-0.70 [facility] Comment on above: Performed By: #### 5 7021-8 ####DERRICK ALVESTZER L ([id number])[facility] ([facility])[address] [place] [address] Immature granulocytes/100 WBC (Bld) 0.9 % Normal 0.0-0.9 [facility] Comment on above: Result Comment: Arlen ture Granulocyte Count (IG) includes promyelocytes, myelocytes and metamyelocytes but does not include bands. Percent differential counts (%) should be interpreted in the context of the absolute cell counts (cells/UL). Performed By: #### 5 7021-8 ####DERRICK SIMER L ([id number])[facility] ([facility])[address] [place] [address] Lymphocytes (Bld) [#/Vol] 0.73 x10*3/uL Low 1.20-4.80 [facility] Comment on above: Performed By: #### 5 7021-8 ####DERRICK CHOUDHARYMOTZER L ([id number])[facility] ([facility])[address] [place] [address] Lymphocytes/100 WBC (Bld) 4.7 % Normal 13.0-44.0 [facility] Comment on above: Performed By: #### 5 7021-8 ####DERRICK CHOUDHARYMOTZER L ([id number])[facility] ([facility])[address]42 [place] [address] MCH (RBC) [Entitic mass] 31.7 pg Normal 26.0-34.0 [facility] Comment on above: Performed By: #### 5 7021-8 ####DERRICK CHOUDHARYMOTZER L ([id number])[facility] ([facility])[address]77 [place] [address] MCHC (RBC) [Mass/Vol] 31.0 g/dL Low 32.0-36.0 [facility] Comment on above: Performed By: #### 5 7021-8 ####DERRICK CHOUDHARYMOTZER L ([id number])[facility] ([facility])[address]75 [place] [address] MCV (RBC) [Entitic vol] 102 fL High 80-100 [facility] Comment on above: Performed By: #### 5 7021-8 ####DERRICK Hall ([id number])[facility] ([facility])[address]86 [place] [address] Monocytes (Bld) [#/Vol] 0.21 x10*3/uL Normal 0.10-1.00 [facility] Comment on above: Performed By: #### 5 7021-8 ####DERRICK BRAR L ([id number])[facility] ([facility])[address]39 [place] [address] Monocytes/100 WBC (Bld) 1.3 % Normal 2.0-10.0 [facility] Comment on above: Performed By: #### 5 7021-8 ####DERRICK Hall ([id number])[facility] ([facility])[address] [place] [address] Neutrophils (Bld) [#/Vol] 14.60 x10*3/uL High 1.20-7.70 [facility] Comment on above: Result Comment: Perc ent differential counts (%) should be interpreted in the context of the absolute cell counts (cells/uL). Performed By: #### 5 7021-8 ####DERRICK Hall ([id number])[facility] ([facility])[address]40 [place] [address] Neutrophils/100 WBC (Bld) 93.0 % Normal 40.0-80.0 [facility] Comment on above: Performed By: #### 5 7021-8 ####DERRICK BRAR L ([id number])[facility] ([facility])[address]36 [place] [address] Nucleated RBC/100 WBC (Bld) [Ratio] 0.0 /100 WBCs Normal 0.0-0.0 [facility] Comment on above: Performed By: #### 5 7021-8 ####DERRICK Hall ([id number])[facility] ([facility])[address]709 [place] [address] Platelets (Bld) [#/Vol] 222 x10*3/uL Normal 150-450 [facility] Comment on above: Performed By: #### 5 7021-8 ####DERRICK Hall ([id number])[facility] ([facility])[address]253 [place] [address] RBC (Bld) [#/Vol] 4.32 x10*6/uL Normal 4.00-5.20 [facility] Comment on above: Performed By: #### 5 7021-8 ####DERRICK Hall ([id number])[facility] ([facility])[address]97 [place] [address] WBC (Bld) [#/Vol] 15.7 x10*3/uL High 4.4-11.3 [facility] Comment on above: Performed By: #### 5 7021-8 ####DERRICK Hall ([id number])[facility] ([facility])[address]50 [place] [address] Comprehensive metabolic 2000 panelon 03-22-2025 Albumin BCP dye [Mass/Vol] 3.5 g/dL Normal 3.4-5.0 [facility] Comment on above: Performed By: #### 2 4323-8 ####DERRICK Hall ([id number])[facility] ([facility])[address]48 [place] [address] ALP [Catalytic activity/Vol] 70 U/L Normal 33-136 [facility] Comment on above: Performed By: #### 2 4323-8 ####DERRICK BRAR L ([id number])[facility] ([facility])[address]30 [place] [address] ALT With P-5'-P [Catalytic activity/Vol] 8 U/L Normal 7-45 [facility] Comment on above: Result Comment: Meliza ents treated with Sulfasalazine may generate falsely decreased results for ALT. Performed By: #### 2 4323-8 ####DERRICK Hall ([id number])[facility] ([facility])[address] [facility] [address] Anion gap [Moles/Vol] 16 mmol/L Normal 10-20 [facility] Comment on above: Performed By: #### 2 4323-8 ####DERRICK Hall ([id number])[facility] ([facility])[address] [facility] [address] AST With P-5'-P [Catalytic activity/Vol] 9 U/L Normal 9-39 [facility] Comment on above: Result Comment: MILD HEMOLYSIS DETECTED. The result may be falsely elevated due to hemolysis or other interferents. Clinical correlation is recommended. Repeat testing may be considered. Performed By: #### 2 4323-8 ####DERRICK Hall ([id number])[facility] ([facility])[address] [facility] [address] Bilirubin [Mass/Vol] 0.5 mg/dL Normal 0.0-1.2 [facility] Comment on above: Performed By: #### 2 4323-8 ####DERRICK Hall ([id number])[facility] ([facility])[address]204 [place] [address] Calcium [Mass/Vol] 8.9 mg/dL Normal 8.6-10.6 [facility] Comment on above: Performed By: #### 2 4323-8 ####DERRICK Hall ([id number])[facility] ([facility])[address]448 [place] [address] Chloride [Moles/Vol] 104 mmol/L Normal 98-107 [facility] Comment on above: Performed By: #### 2 4323-8 ####DERRICK Hall ([id number])[facility] ([facility])[address]25 [place] [address] CO2 [Moles/Vol] 20 mmol/L Low 21-32 [facility] Comment on above: Performed By: #### 2 4323-8 ####DERRICK Hall ([id number])[facility] ([facility])[address]80 [place] [address] Creatinine [Mass/Vol] 0.77 mg/dL Normal 0.50-1.05 [facility] Comment on above: Performed By: #### 2 4323-8 ####DERRICK Hall ([id number])[facility] ([facility])[address]011 [place] [address] Glomerular filtration rate/1.73 sq M.predicted 87 mL/min/1.73m*2 Normal >60 [facility] Comment on above: Result Comment: Calc ulations of estimated GFR are performed using the 2020 CKD-EPI Study Refit equation without the race variable for the IDMS-Traceable creatinine methods.https://jasn.asnjournals.org/content/early// N.3391101210 Performed By: #### 2 4323-8 ####DERRICK Hall ([id number])[facility] ([facility])[address]03 [place] [address] Glucose [Mass/Vol] 235 mg/dL High 74-99 [facility] Comment on above: Performed By: #### 2 4323-8 ####DERRICK Hall ([id number])[facility] ([facility])[address] [place] [address] Potassium [Moles/Vol] 4.1 mmol/L Normal 3.5-5.3 [facility] Comment on above: Result Comment: MILD HEMOLYSIS DETECTED. The result may be falsely elevated due to hemolysis or other interferents. Clinical correlation is recommended. Repeat testing may be considered. Performed By: #### 2 4323-8 ####DERRICK BRAR L ([id number])[facility] ([facility])[address]107 [place] [address] Protein [Mass/Vol] 5.8 g/dL Low 6.4-8.2 [facility] Comment on above: Performed By: #### 2 4323-8 ####DERRICK Hall ([id number])[facility] ([facility])[address]871 [place] [address] Sodium [Moles/Vol] 136 mmol/L Normal 136-145 [facility] Comment on above: Performed By: #### 2 4323-8 ####DERRICK Hall ([id number])[facility] ([facility])[address]94 [place] [address] Urea nitrogen [Mass/Vol] 19 mg/dL Normal 6-23 [facility] Comment on above: Performed By: #### 2 4323-8 ####DERRICK Hall ([id number])[facility] ([facility])[address]84 [place] [address] Glucose Test strip manual (B ld) [Mass/Vol]on 03-22-2025 Glucose [Mass/Vol] 161 mg/dL High 74-99 [facility] Comment on above: Performed By: #### 2 341-6 ####DERRICK Hall ([id number])[facility] ([facility])[address]36 [place] [address] Glucose [Mass/Vol] 148 mg/dL High 74-99 [facility] Comment on above: Performed By: #### 2 341-6 ####DERRICK Hall ([id number])[facility] ([facility])[address]88 [place] [address] Glucose [Mass/Vol] 182 mg/dL High 74-99 [facility] Comment on above: Performed By: #### 2 341-6 ####DERRICK Hall ([id number])[facility] ([facility])[address]74 [place] [address] Glucose [Mass/Vol] 221 mg/dL High 74-99 [facility] Comment on above: Result Comment: CHARLES SANDOVAL Performed By: #### 2 341-6 ####DERRICK Hall ([id number])[facility] ([facility])[address]121 [place] [address] Glucose [Mass/Vol] 248 mg/dL High 74-[address] [place] [address] Comment on above: Result Comment: RN N OTIFIED Performed By: #### 2 341-6 ####DERRICK Hall ([id number])[facility] ([facility])[address] [place] [address] HbA1c (Bld) [Mass fraction]o n 03-22-2025 Average glucose Estimated from glycated hemoglobin (Bld) [Mass/Vol] 143 mg/dL Normal Not Established [facility] Comment on above: Order Comment: Diagn osis of Zxznfgqh-RnmgjbWze-Henqhlbf: < or = 5.6%Increased risk for developing diabetes: 5.7-6.4%Diagnostic of diabetes: > or = 6.5% Performed By: #### 4 548-4 ####DERRICK Hall ([id number])[facility] ([facility])[address] [place] [address] Hemoglobin A1c/Hemoglobin.to fernandez 03-22-2025 HbA1c (Bld) [Mass fraction] 6.6 % High See comment [facility] Comment on above: Order Comment: Diagn osis of Ulnijvgw-VuppssKnc-Nxlhlokq: < or = 5.6%Increased risk for developing diabetes: 5.7-6.4%Diagnostic of diabetes: > or = 6.5% Performed By: #### 4 548-4 ####DERRICK Hall ([id number])[facility] ([facility])[address] [place] [address] Lactateon 03-22-2025 Lactate [Moles/Vol] 2.0 mmol/L Normal 0.4-2.0 [facility] Comment on above: Order Comment: Venip uncture immediately after or during the administration of Metamizole may lead to falsely low results. Testing should be performed immediately prior to Metamizole dosing. Performed By: #### 2 524-7 ####DERRICK Hall ([id number])[facility] ([facility])[address] [place] [address] 18453 Legionella sp Agon Legionella sp Ag Ql (U) Negative Normal Negative [facility] Comment on above: Performed By: #### 3 2781-7 ####DERRICK Hall ([id number])[facility] ([facility])[address]84 [place] [address] Magnesiumon 03-22-2025 Magnesium [Mass/Vol] 2.22 mg/dL Normal 1.60-2.40 [facility] Comment on above: Result Comment: MILD LIPEMIA DETECTED. The result may be falsely elevated due to lipemia or other interferents. Clinical correlation is recommended. Repeat testing may be considered. Performed By: #### 1 9123-9 ####DERRICK Hall ([id number])[facility] ([facility])[address]074 [place] [address] Natriuretic peptide B [Mass/ Vol]on 03-22-2025 Natriuretic peptide B (Bld) [Mass/Vol] 117 pg/mL High 0-99 [facility] Comment on above: Order Comment: <100 pg/mL - Heart failure -647 pg/mL - Intermediate probability of acute heart [...] Performed By: #### 3 0934-4 ####DERRICK Hall ([id number])[facility] ([facility])[address]77 [place] [address] PT and aPTT panel Coag (PPP) on 03-22-2025 aPTT Coag (PPP) [Time] 23 s Low 26-36 [facility] Comment on above: Order Comment: The A PTT is no longer used for monitoring Unfractionated Heparin Therapy. For monitoring Heparin Therapy, use the Heparin Assay. Performed By: #### 3 4529-8 ####DERRICK Hall ([id number])[facility] ([facility])[address]762 [place] [address] INR Coag (PPP) [Relative time] 1.1 Normal 0.9-1.1 [facility] Comment on above: Order Comment: The A PTT is no longer used for monitoring Unfractionated Heparin Therapy. For monitoring Heparin Therapy, use the Heparin Assay. Performed By: #### 3 4529-8 ####DERRICK Hall ([id number])[facility] ([facility])[address] [place] [address] PT Coag (PPP) [Time] 12.0 s Normal 9.8-12.4 [facility] Comment on above: Order Comment: The A PTT is no longer used for monitoring Unfractionated Heparin Therapy. For monitoring Heparin Therapy, use the Heparin Assay. Performed By: #### 3 4529-8 ####DERRICK Hall ([id number])[facility] ([facility])[address] [place] [address] Phosphateon 03-22-2025 Phosphate [Mass/Vol] 4.3 mg/dL Normal 2.5-4.9 [facility] Comment on above: Result Comment: MILD HEMOLYSIS DETECTED. The result may be falsely elevated due to hemolysis or other interferents. Clinical correlation is recommended. Repeat testing may be considered. Performed By: #### 2 777-1 ####DERRICK Hall ([id number])[facility] ([facility])[address] [place] [address] Streptococcus pneumoniae Ago n 03-22-2025 S. pneumoniae Ag Ql (U) Negative Normal Negative [facility] Comment on above: Performed By: #### 2 4027-5 ####DERRICK Hall ([id number])[facility] ([facility])[address] [place] [address] TRANSTHORACIC ECHO (TTE) COM PLETEon 03-22-2025 TRANSTHORACIC ECHO (TTE) COMPLETE Normal [facility] Urinalysis complete W Reflex Culture panel (U)on 03-22-2025 Appearance (U) Clear Normal Clear [facility] Comment on above: Order Comment: OVER is reported when the result is greater than the clinically reportable range. Performed By: #### 5 8077-9 ####DERRICK Hall ([id number])[facility] ([facility])[address]149 [place] [address] Bacteria Auto (Urine sed) [#/Area] 2+ /HPF Abnormal NONE SEEN [facility] Comment on above: Performed By: #### 5 8077-9 ####DERRICK Hall ([id number])[facility] ([facility])[address]168 [place] [address] Bilirubin (U) [Mass/Vol] Negative Normal NEGATIVE [facility] Comment on above: Order Comment: OVER is reported when the result is greater than the clinically reportable range. Performed By: #### 5 8077-9 ####DERRICK Hall ([id number])[facility] ([facility])[address] [place] [address] Color (U) Light-Yellow Normal Light-Yellow , Yellow, Dark-Yellow [facility] Comment on above: Order Comment: OVER is reported when the result is greater than the clinically reportable range. Performed By: #### 5 8077-9 ####DERRICK Hall ([id number])[facility] ([facility])[address] [place] [address] Epithelial cells.squamous Auto (Urine sed) [#/Area] 1-9 (SPARSE) Normal Reference range not established. [facility] Comment on above: Performed By: #### 5 8077-9 ####DERRICK Hall ([id number])[facility] ([facility])[address]653 [place] [address] Glucose Auto test strip (U) [Mass/Vol] OVER (4+) Abnormal Normal [facility] Comment on above: Order Comment: OVER is reported when the result is greater than the clinically reportable range. Performed By: #### 5 8077-9 ####DERRICK Hall ([id number])[facility] ([facility])[address]43 [place] [address] Ketones (U) [Mass/Vol] 10 (1+) Abnormal NEGATIVE [facility] Comment on above: Order Comment: OVER is reported when the result is greater than the clinically reportable range. Performed By: #### 5 8077-9 ####DERRICK ALVESTZER L ([id number])[facility] ([facility])[address] [facility] [place] [address] Leukocyte esterase Auto test strip Ql (U) Negative Normal NEGATIVE [facility] Comment on above: Order Comment: OVER is reported when the result is greater than the clinically reportable range. Performed By: #### 5 8077-9 ####DERRICK CHOUDHARYMOTZER L ([id number])[facility] ([facility])[address] [facility] [place] [address] Mucus Auto (Urine sed) [#/Area] FEW Normal Reference range not established. [facility] Comment on above: Performed By: #### 5 8077-9 ####DERRICK CHOUDHARYMOTZER L ([id number])[facility] ([facility])[address]754 [place] [address] Nitrite Auto test strip Ql (U) Negative Normal NEGATIVE [facility] Comment on above: Order Comment: OVER is reported when the result is greater than the clinically reportable range. Performed By: #### 5 8077-9 ####DERRICK CHOUDHARYMOTZER L ([id number])[facility] ([facility])[address]28 [place] [address] pH (U) 6.0 [pH] Normal 5.0, 5.5, 6.0, 6.5, 7.0, 7.5, 8.0 [facility] Comment on above: Order Comment: OVER is reported when the result is greater than the clinically reportable range. Performed By: #### 5 8077-9 ####DERRICK CHOUDHARYMOTZER L ([id number])[facility] ([facility])[address] [facility] [place] [address] Protein (U) [Mass/Vol] 10 (TRACE) Normal NEGATIVE, 10 (TRACE), 20 (TRACE) [facility] Comment on above: Order Comment: OVER is reported when the result is greater than the clinically reportable range. Performed By: #### 5 8077-9 ####DERRICK SCHMOTZER L ([id number])[facility] ([facility])[address]86 [facility] [place] [address] RBC (U) [#/Vol] Negative Normal NEGATIVE [facility] Comment on above: Order Comment: OVER is reported when the result is greater than the clinically reportable range. Performed By: #### 5 8077-9 ####DERRICK Hall ([id number])[facility] ([facility])[address] [place] [address] RBC Auto (Urine sed) [#/Area] 3-5 Normal NONE, 1-2, 3-5 [facility] Comment on above: Performed By: #### 5 8077-9 ####DERRICK Hall ([id number])[facility] ([facility])[address]48 [place] [address] Specific gravity (U) [Rel density] >1.030 Normal 1.005-1.035 [facility] Comment on above: Order Comment: OVER is reported when the result is greater than the clinically reportable range. Performed By: #### 5 8077-9 ####DERRICK Hall ([id number])[facility] ([facility])[address] [place] [address] Urobilinogen (U) [Mass/Vol] Normal Normal Normal [facility] [facility] Comment on above: Order Comment: OVER is reported when the result is greater than the clinically reportable range. Performed By: #### 5 [id number] ####DERRICK Hall ([id number])[facility] ([facility])[address] [place] [address] WBC Auto (Urine sed) [#/Area] NONE Normal 1-5, NONE [facility] Comment on above: Performed By: #### 5 [id number] ####DERRICK Hall ([id number])[facility] ([facility])[address] [place] [address] XR ABDOMEN 1 VIEWon 03-22-20 XR ABDOMEN 1 VIEW Normal [facility] XR CHEST 1 VIEWon 03-22-2025 XR CHEST 1 VIEW Normal [facility] Office Visiton 02-09-2025 Follow-up visit [id number] Chung Dubose 1960 F Date Provider Department Center 02/09/2025 DANII [facility] Family History Problem Relation Age of Onset Diabetes Mother Atrial fibrillation Mother Hyperlipidemia Mother Kidney disease Sister Heart attack Maternal Grandmother Stroke Maternal Grandmother Family Status - Relation Status Age at Mother Alive Father Alive Sister Maternal Grandmother Level of Service:75297 [place] OFFICE/OUTPATIENT NEW MODERATE MDM 45 MINUTES Normal [facility] Office Visiton 12-04-2024 Follow-up visit [id number] Chung Dubose 1960 F Date Provider Department Center 12/04/2024 JUSTINE NOLAN [facility] Family History Problem Relation Age of Onset Diabetes Mother Atrial fibrillation Mother Hyperlipidemia Mother Kidney disease Sister Heart attack Maternal Grandmother Stroke Maternal Grandmother Family Status - Relation Status Age at Mother Sister Maternal Grandmother Level of Service:66590 [place] OFFICE/OUTPATIENT ESTABLISHED MOD MDM 30 MIN Normal [facility] Non-Office Professional Cytology Reporton Non-[place] [address]- Non-Office Professional Cytology Report Collected Date/Time: 09/24/2024 15:00 EST Pathologist: Sagar HO PhD, Chi Hall Received Date/Time: 09/25/2024 07:07 EST SHANNAN HO, Benjy JOHNSON MD, Benjy Virgen Non-Office Professional Cytology Report - 09/29/2024 11:37 EST - [...] CytoLyt solution added, sent for processing. (DC) DC:[facility] Microscopic Description Microscopic examination performed unless gross only specified. Normal [facility] Comment on above: Performed By: #### 4 [id number] #### [facility] [address] [place] [address] Main OR Intraoperative Recor don 09-28-2024 Main OR Intraoperative Record Main OR Intraoperative Record IntraOp Document Type FT Summary Primary Physician: Benjy JOHNSON MD Finalized Date/Time: 09/28/24 10:46:18 Pt. Name: DUBOSE MELISSANITIN Patrick D.O.B./Sex: 1960 Female Med Rec #: [id number] Physician: Benjy JOHNSON MD Financial #: [id number] Pt. Type: A Room/Bed: [place] [address] Admit/Disch: 09/24/24 11:19:24 - 09/24/24 16:35:00 Institution: [...] 2 Entry 3 Case Attendee Omar LEDEZMA, SONAR TECHNICIAN, Queen SHANNAN HO, James Diggs Role Performed SONAR TECHNICIAN Surgeon - Primary Powdered Sugar Pulverizer Operator - Primary Time In 09/24/24 14:13:00 09/24/24 [...] Lizz Morrow Role Performed Scrub - Primary Facility Practice Specialist Time In 09/24/24 14:13:00 09/24/24 14:13:00 [...] Antibiotic Yes Time Out Omar LEDEZMA, BUZZ, [facility] Participants NMomo, Benjy JOHNSON MD, James Johnson, [...] and tissue Entry 1 Skin Integrity Intact, [place], Warm, & Skin Abnormality No Dry Outcomes [...] signs an (more content not included)... Normal [facility] XR Urography Retrograde Bila tomiiam 09-25-2024 XR [...] mGy = 14.60 DAP = 1108.78 Normal [facility] CHEMISTRYOrdered By: Lab ROP User on 09-24-2024 Glucose [Mass/Vol] 147 mg/dL High 55 - 99 mg/dL [facility] Sub[place] Comment on above: Result Comment: Martinez edgar RN/ POC Username SHAAN WEAVER Invalid Interpretation Code [facility] Subsection Sodium [Moles/Vol] 784000514365 mmol/L Invalid Interpretation Code [facility] Subsection Sodium [Moles/Vol] 328294583 mmol/L Invalid Interpretation Code [facility] Subsection Capillary Glucose POCon 09-09 Glucose [Mass/Vol] 147 mg/dL High 55-99 [facility] Comment on above: Result Comment: Martinez edgar RN/ Performed By: #### 2 [id number] #### [facility] [address] [place] [address] Discharge Instructionson Discharge Instructions Discharge Instructions DUBOSE MELISSA Celina :1960 Visit Date:09/24/2024 Inpatient Discharge Instructions Your Care Team Admitting Physician - Benjy JOHNSON MD Referring Physician - Benjy JOHNSON MD Reason for Your Visit GROSS HEMATURIA, ADRENAL MASS Tests Performed Pathology Non-Office Professional Cytology Exam -- Results Pending -- XR [...] the pharmacy. Have a great day. Where: [facility] IP [address] [address]- Business (1) Medications What How Much When Instructions Next Dose New sulfamethoxazole-trimethop rim (Bactrim D.S. 800 mg-160 mg Tab) 1 Tablets By Mouth 2 times a day Pickup at [facility] Changed metoprolol (metoprolol succinate 50 mg ER [...] TABLETS BY MOUTH AT BEDTIME Pharmacy Information [facility]: [address], [place] [id number] [phone] Allergies No Known Allergies Problems Ongoing - Any problem that you ar (more content not included)... Normal [facility] Comment on above: Result Comment: Elec tronically Signed By: Kym White RN\.br\Date and Time Signed: 09/24/24 15:15 EST Inpatient Patient Summaryon 09-24-2024 Inpatient Patient Summary Inpatient Patient Summary [place] [address] [facility] Clinical Discharge Instructions PERSON INFORMATION Name: MELISSA DUBOSE [facility]#:[id number] PHYSICIANS Admitting Physician: Benjy JOHNSON MD Attending Physician: Benjy JOHNSON MD PCP: Madison Magana MD Discharge Diagnosis: Comment: PATIENT EDUCATION INFORMATION Instructions: Medication Leaflets: Follow up: With: Address: When: Benjy JOHNSON [address] [place] [address], [address], [address] [address] [facility] (1) Comments: Call for followup [...] a great day. MEDICATION LIST New Medications [facility], [address] [place], [place] [id number], [phone] sulfamethoxazole-trimethop rim (Bactrim D.S. 800 mg-160 mg [...] TABLETS BY MOUTH AT BEDTIME. Comment: Normal [facility] Main OR PACU I Recordon 09-09 Main OR PACU I Record Main OR PACU I Rec ord PACU Phase I Document Type FT Summary Primary Physician: Benjy JOHNSON MD Finalized Date/Time: 09/24/24 15:49:26 Pt. Name: MELISSA DUBOSE/Sex: 1960 Female Med Rec #: [id number] Physician: Benjy JOHNSON MD Financial #: [id number] Pt. Type: A Room/Bed: [facility]09 Admit/Disch: 09/24/24 11:19:24 - Institution: Case [...] By: Hazel Swain RN 09/24/24 15:49 Normal [facility] Main OR PACU II Recordon Main OR PACU II Record Main OR PACU II Record PACU Phase II Document Type FT Summary Primary Physician: Benjy JOHNSON MD Finalized Date/Time: 09/24/24 16:43:53 Pt. Name: MELISSA DUBOSE.O.B./Sex: 1960 Female Med Rec #: [id number] Physician: Benjy JOHNSON MD Financial #: [id number] Pt. Type: A Room/Bed: Admit/Disch: 09/24/24 11:19:24 [...] By: Kym White RN 09/24/24 16:43 Normal [facility] Main OR Preoperative Recordo n 09-24-2024 Main OR Preoperative Record Main OR Preoperative Record PreOp Document Type FT Summary Primary Physician: Benjy JOHNSON MD Finalized Date/Time: 09/24/24 15:58:07 Pt. Name: MELISSA DUBOSE /Sex: 1960 Female Med Rec #: [id number] Physician: Benjy JOHNSON MD Financial #: [id number] Pt. Type: A Room/Bed: [facility]/09 Admit/Disch: 09/24/24 11:19:24 - Institution: Case [...] By: Shaan Weaver RN 09/24/24 15:58 Normal [facility] Operative Reporton Operative Report Operative Report Patient: [...] is placed per urethra. A well-lubricated 22 Nicaraguan is urethroscope with 30 degree lens then passed into the bladder without difficulty. Bladder wash cytology was performed and sent as specimen #1. Bilateral ureteral wash cytologies were also then performed utilizing a 6 [place]uan open-ended ureteral catheter. These were sent to [...] tolerates it well. [facility] and then back to PACU in satisfactory [...] ml. Complications: None. Anesthesia type: General. Normal [facility] Comment on above: Result Comment: Elec tronically Signed By: SHANNAN HO, Benjy Sampson.patience\Date and Time Signed: 09/24/24 15:05 EST Outpatient Surgery Discharge Instructionon 09-24-2024 Outpatient Surgery Discharge Instruction Outpatient Surgery Discharge Instruction [address] [address] Patient Discharge Instructions PERSON INFORMATION [...] Follow up: With: Address: When: Benjy JOHNSON [address] [place] [place] [address], [address], [place] [phone] Business (1) Comments: Call for followup appointment. [...] to serve you. Thank you for choosing [facility] HERE ARE THE MEDICATION CHANGES THAT OCCURRED DURING YOUR HOSPITAL STAY New Medications [facility], [address] [place], [place] [id number], [phone] sulfamethoxazole-trimethop rim (Bactrim D.S. 800 mg-160 mg [...] BEDTIME. PATIENT EDUCATION INFORMATION Instructions: Medication Leaflets: [facility] XR Chest 2 Viewson XR Chest 2 [...] mGy = na DAP = na Normal [facility] BMPon 09-17-2024 Anion gap [Moles/Vol] 14 mmol/L Normal 6-16 [facility] Comment on above: Performed By: #### 2 [id number] #### [facility] [address] [place] [address] Calcium [Mass/Vol] 10.2 mg/dL Normal 8.9-11.1 [facility] Comment on above: Performed By: #### 2 657007 #### [facility] [address] [place] [address] Chloride [Moles/Vol] 103 mmol/L Normal 101-111 [facility] Comment on above: Performed By: #### 2 [id number] #### [facility] [address] [place] [address] CO2 [Moles/Vol] 25 mmol/L Normal 21-31 [facility] Comment on above: Performed By: #### 2 [id number] #### [facility] [address] [place] [address] Creatinine [Mass/Vol] 1.1 mg/dL Normal 0.5-1.3 [facility] Comment on above: Performed By: #### 2 [id number] #### [facility] [address] [place] [address] Glucose [Mass/Vol] 155 mg/dL Normal 55-199 [facility] Comment on above: Performed By: #### 2 144510 #### [facility] [address] [place] [address] Potassium [Moles/Vol] 4.5 mmol/L Normal 3.5-5.3 [facility] Comment on above: Performed By: #### 2 [id number] #### [facility] [address] [place] [address] Sodium [Moles/Vol] 137 mmol/L Normal 135-145 [facility] Comment on above: Performed By: #### 2 [id number] #### [facility] [address] [place] [address] Urea nitrogen [Mass/Vol] 25 mg/dL High 5-21 [facility] Comment on above: Performed By: #### 2 819895 #### [facility] [address] [place] [address] Urea nitrogen/Creatinine [Mass ratio] 23 No Units High 10-20 [facility] Comment on above: Performed By: #### 2 749745 #### [facility] [address] [place] [address] CBC w/ Auto Diffon 5 Basophils/100 WBC (Bld) 0.5 % Normal 0.0-2.0 [facility] Comment on above: Performed By: #### 2 493109 #### [facility] [address] [place] [address] Basophils/Leukocytes Auto (Bld) [Pure # fraction] 0.0 E9/L Normal 0.0-0.2 [facility] Comment on above: Performed By: #### 2 790820 #### [facility] [address] [place] [address] Eosinophils (Bld) [#/Vol] 0.1 E9/L Normal 0.0-0.5 [facility] Comment on above: Performed By: #### 2 [id number] #### [facility] [address] [place] [address] Eosinophils/100 WBC (Bld) 1.0 % Normal 0.0-8.0 [facility] Comment on above: Performed By: #### 2 586333 #### [facility] [address] [place] [address] Erythrocyte distribution width (RBC) [Ratio] 13.7 % Normal 10.9-14.2 [facility] Comment on above: Performed By: #### 2 749513 #### [facility] [address] [place] [address] Hematocrit (Bld) [Volume fraction] 45.5 % Normal 34.0-46.0 [facility] Comment on above: Performed By: #### 2 141417 #### [facility] [address] [place] [address] Hemoglobin (Bld) [Mass/Vol] 15.5 g/dL Normal 12.0-16.0 [facility] Comment on above: Performed By: #### 2 502853 #### [facility] [address] [place] [address] Lymphocytes (Bld) [#/Vol] 1.7 E9/L Normal 1.0-4.0 [facility] Comment on above: Performed By: #### 2 888881 #### [facility] [address] [place] [address] Lymphocytes/100 WBC (Bld) 19.8 % Normal 14.0-50.0 [facility] Comment on above: Performed By: #### 2 039873 #### [facility] [address] [place] [address] MCH (RBC) [Entitic mass] 31.9 pg Normal 27.0-34.0 [facility] Comment on above: Performed By: #### 2 200980 #### [facility] [address] [place] [address] MCHC (RBC) [Mass/Vol] 34.0 g/dL Normal 31.4-36.0 [facility] Comment on above: Performed By: #### 2 322267 #### [facility] [address] [place] [address] MCV (RBC) [Entitic vol] 93.9 fL Normal 80.0-100.0 [facility] Comment on above: Performed By: #### 2 670186 #### [facility] [address] [place] [address] Monocytes (Bld) [#/Vol] 0.7 E9/L Normal 0.2-1.0 [facility] Comment on above: Performed By: #### 2 382755 #### [facility] [address] [place] [address] Neutrophils (Bld) [#/Vol] 6.0 E9/L Normal 2.0-7.5 [facility] Comment on above: Performed By: #### 2 359437 #### [facility] [address] [place] [address] Neutrophils/100 WBC (Bld) 70.2 % Normal 36.0-75.0 [facility] Comment on above: Performed By: #### 2 134214 #### [facility] [address] [place] [address] Platelet mean volume (Bld) [Entitic vol] 7.7 fL Normal 6.4-10.8 [facility] Comment on above: Performed By: #### 2 552147 #### [facility] [address] [place] [address] Platelets (Bld) [#/Vol] 239.0 E9/L Normal 150.0-500.0 [facility] Comment on above: Performed By: #### 2 015614 #### [facility] [address] [place] [address] RBC (Bld) [#/Vol] 4.8 E12/L Normal 4.3-5.9 [facility] Comment on above: Performed By: #### 2 941106 #### [facility] [address] [place] [address] WBC corrected for nucl RBC Auto (Bld) [#/Vol] 8.5 E9/L Normal 4.0-11.0 [facility] Comment on above: Performed By: #### 2 014829 #### [facility] [address] [place] [address] CHEMISTRYOrdered By: SYSTEM SYSTEM on 09-17-2024 Anion [...] 34.0 s Normal 25.1 - 36.5 second(s) [facility] Comment on above: Interpretive Data: [...] the same coagulation reagent and instrumentation as [facility] Currently there are no coagulation studies available worldwide for children to 14 days, and no normal ranges. Heparin therapeutic range (represented by Anti-Factor Xa activity of 0.2 - 0.4 U/mL) corresponds to PTT of 56.6 - 109.0 sec. INR Coag (PPP) [Relative time] 1.17 {INR} Invalid Interpretation Code [facility] Comment on above: Interpretive Data: I NR results are specifically intended to assess patients stabilized on long-term Anticoagulation therapy suggested INR s Less Intensive Anticoagulation 2.0 3.0 Conventional Range 3.0 4.5 PT Coag (PPP) [Time] 13.1 s High 9.4 - 1 2.5 second(s) [facility] Comment on above: Interpretive Data: [...] the same coagulation reagent and instrumentation as [facility] Currently there are no coagulation studies available [...] Coag (PPP) [Time] 34.0 second(s) Normal 25.1-36.5 [facility] Comment on above: Result Comment: Para meter [...] the same coagulation reagent and instrumentation as [facility] Currently there are no coagulation studies available worldwide for children to 14 days, and no normal ranges. Heparin therapeutic range (represented by Anti-Factor Xa activity of 0.2 - 0.4 U/mL) corresponds to PTT of 56.6 - 109.0 sec. Performed By: #### 1 [id number] #### [facility] [address] [place] [address] INR Coag (PPP) [Relative time] 1.17 {INR} Invalid Interpretation Code [facility] Comment on above: Result Comment: INR results are specifically intended to assess patients stabilized on long-term Anticoagulation therapy suggested INR???s ???Less Intensive Anticoagulation??? 2.0 ??? 3.0 Conventional Range 3.0 ??? 4.5 Performed By: #### 1 [id number] #### [facility] [address] [place] [address] PT Coag (PPP) [Time] 13.1 second(s) High 9.4-12.5 [facility] Comment on above: Result Comment: 15 d [...] the same coagulation reagent and instrumentation as [facility] Currently there are no coagulation studies available worldwide for children to 14 days, and no normal ranges. Performed By: #### 1 [id number] #### [facility] [address] [place] [address] UA with Cult Rflxon 09-17-19 25 Bilirubin Ql (U) Negative Normal Negative [facility] Comment on above: Performed By: #### 4 [id number] #### [facility] [address] [place] [address] Clarity (U) Clear Normal Clear [facility] Comment on above: Performed By: #### 4 [id number] #### [facility] [address] [place] [address] Color (U) Yellow Normal Yellow [facility] Comment on above: Result Comment: Micr oscopic readings are only performed on those samples that meet specific criteria set forth by [facility]. Performed By: #### 4 [id number] #### [facility] [address] [place] [address] Glucose Ql (U) 4+ mg/dL Abnormal Negative [facility] Comment on above: Performed By: #### 4 [id number] #### [facility] [address] [place] [address] Hemoglobin Auto test strip (U) [Mass/Vol] Negative Normal Negative [facility] Comment on above: Performed By: #### 4 [id number] #### [facility] [address] [place] [address] Ketones Auto test strip Ql (U) Negative Normal Negative [facility] Comment on above: Performed By: #### 4 [id number] #### [facility] [address] [place] [address] Leukocyte esterase Auto test strip Ql (U) Negative Normal Negative [facility] Comment on above: Performed By: #### 4 [id number] #### [facility] [address] [place] [address] Nitrite Auto test strip Ql (U) Negative Normal Negative [facility] Comment on above: Performed By: #### 4 [id number] #### [facility] [address] [place] [address] pH (U) 5.5 [pH] Invalid Interpretation Code 5.0-9.0 [facility] Comment on above: Performed By: #### 4 [id number] #### [facility] [address] [place] [address] Protein Ql (U) Trace Abnormal Negative [facility] Comment on above: Performed By: #### 4 [id number] #### [facility] [address] [place] [address] Specific gravity (U) [Rel density] 1.036 Invalid Interpretation Code 1.005-1.030 [facility] Comment on above: Performed By: #### 4 [id number] #### [facility] [address] [place] [address] Urobilinogen (U) [Mass/Vol] 2 mg/dL Abnormal Negative [facility] Comment on above: Performed By: #### 4 [id number] #### [facility] [address] [place] [address] Type of Urine collection method Clean Catch Normal [facility] Comment on above: Performed By: #### 4 [id number] #### [facility] [address] [place] [address] URINALYSISOrdered By: SYSTEM SYSTEM on 09-17-2024 Bilirubin Ql (U) Negative Normal Negativemg/ d L FT UA Auto SS Clarity (U) Clear (09/17/24 2:03 PM) Normal Clear [facility] UA Auto SS Color (U) Yellow 1 (09/17/24 2:03 PM) Normal Yellow [facility] UA Auto SS Comment on above: Interpretive Data: M icroscopic readings are only performed on those samples that meet specific criteria set forth by [facility]. Glucose Ql (U) 4+ mg/dL Invalid [...] 09-17-2024 eGFR 57 mL/min/1.73 m2 Low >=59 [facility] Comment on above: Performed By: #### 1 [id number] #### [facility] [address] [place] [address] 36on 09-07-[address] Leroy and Office to get a fax number and gave the Medical Records fax number on Dr. SOLOMON> no answer and office. Normal [facility] UroVysion Fish and Urine Cyt o ([facility])on 08-26-2024 UVFISH & UC Diagnosis Info Invalid Interpretation Code [facility] Comment on above: Result Comment: A:Ur ine,Bladder [...] with cytology and cystoscopy results. * CPT: 43989, [address]. Microscopic Notes - Microscopic Notes - Abnormal cells 9p21 deletions: Abnormal cells aneploid events: Total cells analyzed: 200 Hematuria: Gross Description Site ID:A color Yellow fixative Alcohol Received 80 mls of clear yellow fluid with the patient's name and, Bladder Wash on the vial. Electronically signed by : on: 08/26/2024 16:06:35 Performed By: #### 1 [id number] #### [facility] [address] [place] [address] Office Visiton 08-24-2024 Follow-up visit [id number] Chung Dubose 1960 F Date Provider Department Center 08/24/2024 AkilahJUSTINE PARKS DEMETRIS [facility] Family History Problem Relation Age of Onset Diabetes Mother Atrial fibrillation Mother Hyperlipidemia Mother Kidney disease Sister Heart attack Maternal Grandmother Stroke Maternal Grandmother Family Status - Relation Status Age at Mother Sister Maternal Grandmother Level of Service:36883 [place] OFFICE/OUTPATIENT ESTABLISHED MOD MDM 30 MIN Normal [facility] Ambulatory Visit Summaryon 1 10-21-2023 Ambulatory Visit [...] HO, Benjy [place], AJ When: Where: [address] [facility] [address] [place] [address]- Medications What How Much When Instructions Unchanged [...] or it (more content not included)... Normal [facility] Uro[facility]ysion Fish and Urine Cyt o ([facility])on 08-20-2024 [facility] Method of Extraction Bladder Wash Normal [facility] Comment on above: Performed By: #### 1 [id number] #### [facility] [address] [place] [address] [facility] Number of Jars 1 Invalid Interpretation Code [facility] [facility] Comment on above: Performed By: #### 1 [id number] #### [facility] [address] [place] [address] [facility] Specimen Bladder Wash Normal [facility] Comment on above: Performed By: #### 1 [id number] #### [facility] [address] [place] [address] [facility] Type of Service Technical Only Normal [facility] Comment on above: Performed By: #### 1 [id number] #### [facility] [address] [place] [address] Urology Office/Clinic Noteon 08-20-2024 Urology Office/Clinic Note [...] urothelial cancer. (more content not included)... Normal [facility] Comment on above: Result Comment: Elec tronically Signed By: Benjy JOHNSON MD P\.br\Date and Time Signed: 08/20/24 15:47 EST\.br\Electronically Co-Signed By: Danuta Larson\.br\Date and Time Co-Signed: 08/20/24 15:42 EST Office Visiton 07-29-2024 Follow-up visit [id number] Chung Dubose 1960 F Date Provider Department Center 07/29/2024 JUSTINE NOLAN DEMETRIS Parra Family History Problem Relation Age of Onset Diabetes Mother Atrial fibrillation Mother Hyperlipidemia Mother Kidney disease Sister Heart attack Maternal Grandmother Stroke Maternal Grandmother Family Status - Relation Status Age at Mother Sister Maternal Grandmother Level of Service:71276 [place] OFFICE/OUTPATIENT ESTABLISHED MOD MDM 30 MIN Normal [facility] 36on 07-01-2024 36 Patient came into of fice to ECG. She is not in afib per Dr. Parks. 30 day event monitor was placed. She has follow up in Jul. Vitals: 144/88, HR 53 Normal [facility] 36on 06-30-2024 36 Her echocardiogram o n 06/23/2024 showed EF 20%. I want her to come to the office to obtain an ECG. If she is not in atrial fibrillation, then I want her to wear a event monitor to see if she is having episodes of AF that would explain the low EF. Also please obtain vital signs. Normal [facility] Telephoneon 06-30-2024 Telephone [id number] Chung Dubose 1960 F Date Provider Department Center 06/30/2024 JUSTINE NOLAN Family History Problem Relation Age of Onset Diabetes Mother Atrial fibrillation Mother Hyperlipidemia Mother Kidney disease Sister Heart attack Maternal Grandmother Stroke Maternal Grandmother Family Status - Relation Status Age at Mother Sister Maternal Grandmother Normal [facility] Urine Cytology ([facility])on 06-05-2024 Microscopic exam Cytology (U) [Interp] Diagnosis Info Invalid Interpretation Code [facility] Comment on above: Result Comment: A:Ur ine,Clean Catch:Voided Interpretation - Adequate cellularity for evaluation. MicroScopic Description - Adequacy - Adequate Gross Description Site ID:A color Yellow fixative Alcohol Specimen designated Clean Catch received in alcohol preservative and labeled with the patient???s name, consists of 40ml cloudy yellow fluid. Electronically signed by : on: 06/05/2024 15:04:11 Performed By: #### 1 [id number] #### [facility] [address] [place] [address] Ambulatory Visit Summaryon 06-02-2024 Ambulatory Visit Summary [...] Comments: elba Where: [address] [place], [place] [id number]- Medications What How Much When Instructions Unchanged [...] that req (more content not included)... Normal [facility] Urine Cytology ([facility])on 0 06-02-2024 Method of Extraction Voided Normal [facility] Comment on above: Performed By: #### 1 [id number] #### [facility] [address] Number of Jars 1 Invalid Interpretation Code [facility] Comment on above: Performed By: #### 1 [id number] #### [facility] [address] [place] [id number] Specimen Clean Catch Normal [facility] Comment on above: Performed By: #### 1 [id number] #### [facility] [address] [place] [id number] Type of Service Technical Only Normal [facility] Comment on above: Performed By: #### 1 [id number] #### [facility] [address] [place] [address] Urology Office/Clinic Noteon 06-02-2024 Urology Office/Clinic Note [...] with voice recognition artificial intelligence software, specifically [employer], [email or web address] and or [email or web address]. Substitutions may have occurred due to the [...] nodule. Discussed adrenal nodule findings. Will call [facility] radiology for Hounsfield measurements between the contrast and noncontrast images. May need additional lab work versus further workup. Patient will likely need separate discussion regarding this, she was very overwhelmed with hematuria discussion today. -Request for addendum on [facility] CTs 3. OAB (overactive bladder) (N32.81: [...] nonobstructing nephrol (more content not included)... Normal [facility] Comment on above: Result Comment: Elec tronically Signed By: HILTON Tariq APRN, Ashley Sorenson\.br\Date and Time Signed: 06/02/24 14:44 EDT Office Visiton 05-01-2024 Follow-up visit [id number] Chung Dubose 1960 F Date Provider Department Center 05/01/2024 JUSTINE NOLAN Family History Problem Relation Age of Onset Diabetes Mother Atrial fibrillation Mother Hyperlipidemia Mother Kidney disease Sister Heart attack Maternal Grandmother Stroke Maternal Grandmother Family Status - Relation Status Age at Mother Sister Maternal Grandmother Level of Service:55430 [place] OFFICE/OUTPATIENT ESTABLISHED MOD MDM 30 MIN Normal [facility] Office Visiton 02-19-2024 Follow-up visit [id number] Chung Dubose 1960 Date Provider Department Center 02/19/2024 [id number] NEW DEMETRIS Parra Family History Problem Relation Age of Onset Diabetes Mother Atrial fibrillation Mother Hyperlipidemia Mother Kidney disease Sister Heart attack Maternal Grandmother Stroke Maternal Grandmother Family Status - Relation Status Age at Mother Sister Maternal Grandmother Level of Service:45575 [place] OFFICE/OUTPATIENT ESTABLISHED MOD MDM 30 MIN Normal [facility] Calcium [Mass/volume] in Ser um or PlasmaOrdered By: Winter Norris on 11-24-2023 Calcium [Mass/Vol] 9.0 mg/dL 8.6-10.3 [facility] Carbon dioxide, total [Moles /volume] in Serum or PlasmaOrdered By: Winter Norris on 11-24-2023 CO2 [Moles/Vol] 30.8 mmol/L 21.0-31.[address] [facility] Chloride [Moles/volume] in S mehreen or PlasmaOrdered By: Winter Norris on 11-24-2023 Chloride [Moles/Vol] 100 mmol/L 98-107 [facility] Creatinine [Mass/volume] in Serum or PlasmaOrdered By: Winter Norris on 11-24-2023 Creatinine [Mass/Vol] 0.91 mg/dL 0.60-1.20 [facility] Glucose Glucometer (BldC) [M ass/Vol]Ordered By: Winter Norris on 11-24-2023 Glucose [Mass/Vol] 271 mg/dL [facility] Comment on above: Random Glucose Refer ence Range is dependent on time and content of last meal. Glucose of more than 200 mg/dL in a nonstressed, ambulatory subject supports the diagnosis of Diabetes Mellitus. Glucose [Mass/volume] in Ser um or PlasmaOrdered By: Winter Norris on 11-24-2023 Glucose [Mass/Vol] 259 mg/dL 70-100 [facility] Comment on above: Delta: 133 on -[id number] recommended reference rangeRandom Glucose Reference Range is dependent on time and content of last meal. Glucose of more than 200 mg/dL in a nonstressed, ambulatory subject supports the diagnosis of Diabetes Mellitus. No Panel InformationOrdered By: Winter Norris on 11-24-2023 Estimated GFR (CKD-EPI) > 60.0 mL/Min [facility] Creatinine Clearance (Chem 85.70 [facility] Potassium [Moles/volume] in Serum or PlasmaOrdered By: Winter Norris on 11-24-2023 Potassium [Moles/Vol] 3.7 mmol/L 3.5-5.1 [facility] Serum or plasma anion gap de terminationOrdered By: Winter Norris on 11-24-2023 Anion gap [Moles/Vol] 10.9 mmol/L 6.0-15.0 [facility] Sodium [Moles/volume] in Ser um or PlasmaOrdered By: Winter Norris on 11-24-2023 Sodium [Moles/Vol] 138 mmol/L 136-145 [facility] Urea nitrogen [Mass/volume] in Serum or PlasmaOrdered By: Winter Norris on 11-24-2023 Urea nitrogen [Mass/Vol] 23 mg/dL 7-25 [facility] Basophils Auto (Bld) [#/Vol] Ordered By: Winter Norris on 11-23-2023 Basophils (Bld) [#/Vol] 0.0 10*3/uL 0.0-0.2 [facility] Basophils/100 WBC Auto (Bld) Ordered By: Winter Norris on 11-23-2023 Basophils/100 WBC (Bld) 0.1 % . [facility] Eosinophils Auto (Bld) [#/Vo l]Ordered By: Winter Norris on 11-23-2023 Eosinophils (Bld) [#/Vol] 0.0 10*3/uL 0.0-0.45 [facility] Eosinophils/100 WBC Auto (Bl d)Ordered By: Winter Norris on 11-23-2023 Eosinophils/100 WBC (Bld) 0.0 % . [facility] Erythrocyte distribution wid th Auto (RBC) [Ratio]Ordered By: Winter Norris on 11-23-2023 Erythrocyte distribution width (RBC) [Ratio] 15.3 % 11.9-15.3 [facility] Hematocrit Auto (Bld) [Volum e fraction]Ordered By: Winter Norris on 11-23-2023 Hematocrit (Bld) [Volume fraction] 40.4 % 34.0-46.4 [facility] Hemoglobin [Mass/volume] in BloodOrdered By: Winter Norris on 11-23-2023 Hemoglobin (Bld) [Mass/Vol] 13.1 g/dL 11.8-15.4 [facility] Leukocytes [#/volume] correc nargis for nucleated erythrocytes in Blood by Automated counOrdered By: Winter Norris on 11-23-2023 WBC corrected for nucl RBC Auto (Bld) [#/Vol] 9.6 10*3/uL 3.8-11.6 [facility] Lymphocytes Auto (Bld) [#/Vo l]Ordered By: Winter Norris on 11-23-2023 Lymphocytes (Bld) [#/Vol] 1.7 10*3/uL 1.00-4.8 [facility] Lymphocytes/100 WBC Auto (Bl d)Ordered By: Winter Norris on 11-23-2023 Lymphocytes/100 WBC (Bld) 17.7 % . [facility] MCH Auto (RBC) [Entitic mass ]Ordered By: Winter Norris on 11-23-2023 MCH (RBC) [Entitic mass] 28.2 pg 24.7-34.3 [facility] MCHC Auto (RBC) [Mass/Vol]Or dered By: Winter Norris on 11-23-2023 MCHC (RBC) [Mass/Vol] 32.4 g/dL 32.0-35.0 [facility] MCV Auto (RBC) [Entitic vol] Ordered By: Winter Norris on 11-23-2023 MCV (RBC) [Entitic vol] 86.9 fL 80-100 [facility] Monocytes Auto (Bld) [#/Vol] Ordered By: Winter Norris on 11-23-2023 Monocytes (Bld) [#/Vol] 0.9 10*3/uL 0.0-0.8 [facility] Monocytes/100 WBC Auto (Bld) Ordered By: Winter Norris on 11-23-2023 Monocytes/100 WBC (Bld) 9.5 % . [facility] Neutrophils Auto (Bld) [#/Vo l]Ordered By: Winter Norris on 11-23-2023 Neutrophils (Bld) [#/Vol] 7.0 10*3/uL 1.8-7.7 [facility] Neutrophils/100 WBC Auto (Bl d)Ordered By: Winter Norris on 11-23-2023 Neutrophils/100 WBC (Bld) 72.7 % . [facility] No Panel InformationOrdered By: Winter Norris on 11-23-2023 Bedside Glucose Comment Glu2: cleaned meter [facility] Nucleated erythrocytes [Pres ence] in Blood by Automated countOrdered By: Winter Norris on 11-23-2023 Nucleated RBC Auto Ql (Bld) 0.1 /100{WBC} 0-0.5 [facility] Platelet mean volume Auto (B ld) [Entitic vol]Ordered By: Winter Norris on 11-23-2023 Platelet mean volume (Bld) [Entitic vol] 8.5 fL 6.3-10.7 [facility] Platelets Auto (Bld) [#/Vol] Ordered By: Winter Norris on 11-23-2023 Platelets (Bld) [#/Vol] 203 10*3/uL 150-450 [facility] RBC Auto (Bld) [#/Vol]Ordere d By: Winter Norris on 11-23-2023 RBC (Bld) [#/Vol] 4.65 10*6/uL 3.60-5.00 [facility] WBC Auto (Bld) [#/Vol]Ordere d By: Winter Norris on 11-23-2023 WBC (Bld) [#/Vol] 9.6 10*3/uL 3.8-11.6 [facility] Activated partial thrombopla stin time (aPTT) in platelet poor plasma by coagulation aOrdered By: Justine Jacobo on 11-22-2023 aPTT Coag (PPP) [Time] 27.6 s 25.1-36.5 [facility] Comment on above: A hematocrit value g reater than 55% may lead to inaccurate results in coagulation testing. Patients having hematocrit values >55% require a special collection tube for coagulation studies. Please contact the laboratory at [phone] for redraw instructions. INR in Platelet poor plasma by Coagulation assayOrdered By: Justine Jacobo on 11-22-2023 INR Coag (PPP) [Relative time] 1.2 {INR} [facility] Comment on above: INR Therapeutic Rang [...] PT Coag (PPP) [Time] 14.0 s 9.0-12.9 [facility] Comment on above: A hematocrit value g reater than 55% may lead to inaccurate results in coagulation testing. Patients having hematocrit values >55% require a special collection tube for coagulation studies. Please contact the laboratory at [phone] for redraw instructions. Automated erythrocytes count in urine sediment (number/area)Ordered By: Winter Norris on 11-21-2023 RBC Auto (Urine sed) [#/Area] 1-2 [HPF] 0-4 [facility] Automated leukocytes count i n urine sediment (number/area)Ordered By: Winter Norris on 11-21-2023 WBC Auto (Urine sed) [#/Area] 0-1 [HPF] 0-4 [facility] Bilirubin Test strip Ql (U)O rdered By: Winter Norris on 11-21-2023 Bilirubin Ql (U) Negative Negative [facility] Cholesterol [Mass/volume] in Serum or PlasmaOrdered By: Karen Mays on 11-21-2023 Cholesterol [Mass/Vol] 95 mg/dL 140-200 [facility] Comment on above: Chol less than 200 m g/dl low riskChol 201-239 mg/dl borderline riskChol 240 mg/dl and greater high risk Cholesterol in LDL Calc [Mas s/Vol]Ordered By: Karen Mays on 11-21-2023 Cholesterol in LDL [Mass/Vol] 53 mg/dL 0-100 [facility] Comment on above: LDL ATP III CLASSIFI CATIONLDL less than 100 mg/dL OptimalLDL 100-129 mg/dL Near or above optimalLDL 130-159 mg/dL Borderline highLDL 160-189 mg/dL HighLDL greater than 189 mg/dL Very high Cholesterol in VLDL Calc [Ma ss/Vol]Ordered By: Karen Mays on 11-21-2023 Cholesterol in VLDL [Mass/Vol] 12 mg/dL [facility] Color Auto (U)Ordered By: Juanita Norris on 11-21-2023 Color (U) Yellow Yellow [facility] Glucose mean value [Mass/vol ume] in Blood Estimated from glycated hemoglobinOrdered By: Karen Mays on 11-21-2023 Average glucose Estimated from glycated hemoglobin (Bld) [Mass/Vol] 88 mg/dL [facility] Hemoglobin A1c percentageOrd ered By: Karen Mays on 11-21-2023 HbA1c (Bld) [Mass fraction] 4.7 % 4.3-5.6 [facility] Comment on above: Increased risk for d iabetes: 5.7 - 6.4diabetes: >6.4glycemic control for adults with diabetes: <7.0 Ketones Auto test strip (U) [Mass/Vol]Ordered By: Winter Norris on 11-21-2023 Ketones (U) [Mass/Vol] Negative Negative [facility] - UrinalysisOrder ed By: Winter Norris on 11-21-2023 Hyaline casts LM Ql (Urine sed) None seen [LPF] 0-8 [facility] Lactate [Moles/volume] in Se rum or PlasmaOrdered By: Karen Mays on 11-21-2023 Lactate [Moles/Vol] 1.5 mmol/L 0.5-2.2 [facility] Nitrite Test strip Ql (U)Ord ered By: Winter Norris on 11-21-2023 Nitrite Ql (U) Negative Negative [facility] No Panel InformationOrdered By: Winter Norris on 11-21-2023 Bedside Glucose #2 Comment Cleaned meter [facility] Bedside Glucose #3 Comment Will repeat test [facility] Protein Auto test strip (U) [Mass/Vol]Ordered By: Winter Norris on 11-21-2023 Protein (U) [Mass/Vol] Negative Negative [facility] Serum or plasma high density lipoprotein (HDL) cholesterol measurementOrdered By: Karen Mays on 11-21-2023 Cholesterol in HDL [Mass/Vol] 29 mg/dL 23-92 [facility] Comment on above: HDL CHOL ATP-III CLA SSIFICATION Cardiovascular RiskHDL > or equal to 60 mg/dL LOWHDL < 40 mg/dL HIGH Serum or plasma total choles terol/high density lipoprotein (HDL) cholesterol mass ratOrdered By: Karen Mays on 11-21-2023 Cholesterol.total/Cho lesterol in HDL [Mass ratio] 3.3 {ratio} <5.0 [facility] Specific gravity Auto test s trip (U) [Rel density]Ordered By: Winter Norris on 11-21-2023 Specific gravity (U) [Rel density] 1.012 1.001-1.030 [facility] Squamous epithelial cells de tection in urine sediment by light microscopyOrdered By: Winter Norris on 11-21-2023 Epithelial cells.squamous LM Ql (Urine sed) None seen [HPF] 0-2 [facility] Triglyceride [Mass/volume] i n Serum or PlasmaOrdered By: Karen Mays on 11-21-2023 Triglyceride [Mass/Vol] 63 mg/dL 0-149 [facility] Comment on above: TRIG ATP III [...] <= 0.01 ng/mL [Mass/Vol] 70.7 pg/mL 0.0-15.0 [facility] Comment on above: Critical Result : Ca lled to and read back by: DENNIS JOHNSON at: 11/21/2023 11:29:54 by:SAMINA Urine bacteria detection by automated methodOrdered By: Winter Norris on 11-21-2023 Bacteria Auto Ql (U) None seen None Seen [facility] Urine clarity by refractomet ry automatedOrdered By: Winter Norris on 11-21-2023 Clarity Refractometry automated (U) Clear Clear [facility] Urine glucose measurement by automated test strip (mass/volume)Ordered By: Winter Norris on 11-21-2023 Glucose Auto test strip (U) [Mass/Vol] >=1000 mg/dL Normal [facility] Urine hemoglobin detection b y automated test stripOrdered By: Winter Norris on 11-21-2023 Hemoglobin Auto test strip Ql (U) 1+ Negative [facility] Urine leukocyte esterase det ection by automated test stripOrdered By: Winter Norris on 11-21-2023 Leukocyte esterase Auto test strip Ql (U) Negative Negative [facility] Urobilinogen Auto test strip (U) [Mass/Vol]Ordered By: Winter Norris on 11-21-2023 Urobilinogen (U) [Mass/Vol] Normal mg/dL Normal [facility] pH Auto test strip (U)Ordere d By: Winter Norris on 11-21-2023 pH (U) 5.5 [pH] 5.0-9.0 [facility] CBC AUTO DIFFon 01-23-2023 BASO # 0.0 103/ul Normal 0.0-0.1 [facility] Comment on above: Performed By: #### I VINCE #### [facility] [address] [place] [address] Dr. Chi Keith Basophils/100 WBC (Bld) 0.4 % Normal 0.2-2.0 [facility] Comment on above: Performed By: #### I VINCE #### [facility] [address] [place] [address] Dr. Chi Keith EO # 0.1 103/ul Normal 0.0-0.7 [facility] Comment on above: Performed By: #### I VINCE #### [facility] [address] [place] [address] Dr. Chi Keith Eosinophils/100 WBC (Bld) 1.9 % Normal 0.9-7.0 [facility] Comment on above: Performed By: #### I VINCE #### [facility] [address] [place] [address] Dr. Chi Keith Erythrocyte distribution width (RBC) [Ratio] 13.9 % Normal 11.0-15.0 [facility] Comment on above: Performed By: #### I VINCE #### [facility] [address] [place] [address] Dr. Chi Keith Hematocrit (Bld) [Volume fraction] 40.5 % Normal 36.0-48.0 [facility] Comment on above: Performed By: #### I VINCE #### [facility] [address] [place] [address] Dr. Chi Keith Hemoglobin (Bld) [Mass/Vol] 12.9 g/dL Normal 12.0-16.0 [facility] Comment on above: Performed By: #### I VINCE #### [facility] [address] [place] [address] Dr. Chi Keith IG # 0.02 10e3/ul Normal 0.00-0.03 [facility] Comment on above: Performed By: #### I VINCE #### [facility] [address] [place] [address] Dr. Chi Keith IG % 0.3 % Normal 0.0-0.5 [facility] Comment on above: Performed By: #### I VINCE #### [facility] [address] [place] [address] Dr. Chi Keith LYMPH # 1.4 103/ul Normal 1.2-3.8 [facility] Comment on above: Performed By: #### I VINCE #### [facility] [address] [place] [address] Dr. Chi Keith Lymphocytes/100 WBC (Bld) 18.7 % Critically low 20.5-60.0 [facility] Comment on above: Performed By: #### I VINCE #### [facility] [address] [place] [address] Dr. Chi Keith MANUAL DIFF REQ NO Normal [facility] Comment on above: Performed By: #### I VINCE #### [facility] [address] [place] [address] Dr. Chi Keith MCH (RBC) [Entitic mass] 29.7 pg Normal 26.7-34.0 [facility] Comment on above: Performed By: #### I VINCE #### [facility] [address] [place] [address] Dr. Chi Keith MCHC (RBC) [Mass/Vol] 31.9 g/dL Normal 29.9-35.2 [facility] Comment on above: Performed By: #### I VINCE #### [facility] [address] [place] [address] Dr. Chi Keith MCV (RBC) [Entitic vol] 93.1 fL Normal 81.0-99.0 [facility] Comment on above: Performed By: #### I VINCE #### [facility] [address] [place] [address] Dr. Chi Keith MONO # 0.5 103/ul Normal 0.3-0.8 [facility] Comment on above: Performed By: #### I VINCE #### [facility] [address] [place] [address] Dr. Chi Keith Monocytes/100 WBC (Bld) 6.4 % Normal 1.7-12.0 [facility] Comment on above: Performed By: #### I VINCE #### [facility] [address] [place] [address] Dr. Chi Keith NEUT # 5.4 103/ul Normal 1.4-6.5 [facility] Comment on above: Performed By: #### I VINCE #### [facility] [address] [place] [address] Dr. Chi Keith Neutrophils/100 WBC (Bld) 72.3 % Normal 43.0-75.0 [facility] Comment on above: Performed By: #### I VINCE #### [facility] [address] [place] [address] Dr. Chi Keith Platelet mean volume (Bld) [Entitic vol] 10.1 fL Normal 9.5-13.5 [facility] Comment on above: Performed By: #### I VINCE #### [facility] [address] [place] [address] Dr. Chi eKith PLT 271 103/ul Normal 150-450 [facility] Comment on above: Performed By: #### I VINCE #### [facility] [address] [place] [address] Dr. Chi Keith RBC 4.35 106/ul Normal 4.20-5.40 [facility] Comment on above: Performed By: #### I VINCE #### [facility] [address] [place] [address] Dr. Chi Keith WBC 7.5 103/ul Normal 4.0-11.0 [facility] Comment on above: Performed By: #### I VINCE #### [facility] [address] [place] [address] Dr. Chi Keith FREE THYROXINE INDEX T7on FTI 3.94 Normal 1.30-4.50 [facility] Comment on above: Performed By: #### T 7, LIPID, TSH, CMP #### [facility] [address] [place] [address] Dr. Chi Keith T3U 31.0 % Normal 30.0-39.0 [facility] Comment on above: Performed By: #### T 7, LIPID, TSH, CMP #### [facility] [address] [place] [address] Dr. Chi Keith T4 [Mass/Vol] 12.70 ug/dL Normal 4.80-13.90 [facility] Comment on above: Performed By: #### T 7, LIPID, TSH, CMP #### [facility] [address] [place] [address] Dr. Chi Keith GLYCOHEMOGLOBIN A1Con 2022 ADA RECOMMENDATION SEE BELOW Normal [facility] Comment on above: Result Comment: ADA RECOMMENDED LIMIT 4.0 - 6.0 ADA THERAPEUTIC TARGET < 7.0 ACTION SUGGESTED > 7.0 Performed By: #### A 1C #### [facility] [address] [place] [address] Dr. Chi Keith Glucose [Mass/Vol] 120 mg/dL Normal [facility] Comment on above: Performed By: #### A 1C #### [facility] [address] [place] [address] Dr. Chi Keith HbA1c (Bld) [Mass fraction] 5.8 % Normal 4.5-6.2 [facility] Comment on above: Performed By: #### A 1C #### [facility] [address] [place] [address] Dr. Chi Keith IRONon 01-23-2023 Iron [Mass/Vol] 109.0 ug/dL Normal 50.0-170.0 [facility] Comment on above: Performed By: #### I VINCE #### [facility] [address] [place] [address] Dr. Chi Keith LIPID PROFILEon 01-23-2023 CHOL-HDL RATIO NORM SEE BELOW Normal [facility] Comment on above: Result Comment: 3.3 - 4.4 LOW RISK 4.4 - 7.1 AVERAGE RISK 7.1 - 11.0 MODERATE RISK >11.0 HIGH RISK Performed By: #### T 7, LIPID, TSH, CMP #### [facility] [address] [address] [address] Chi Keith Cholesterol [Mass/Vol] 209 mg/dL Critically high <=200 [facility] Comment on above: Performed By: #### T 7, LIPID, TSH, CMP #### [facility] [address] [place] [address] Dr. Chi Keith Cholesterol in HDL [Mass/Vol] 41 mg/dL Normal 40-60 [facility] Comment on above: Performed By: #### T 7, LIPID, TSH, CMP #### [facility] [address] [place] [address] Dr. Chi Keith Cholesterol in LDL [Mass/Vol] 135.0 mg/dL Normal [facility] Comment on above: Performed By: #### T 7, LIPID, TSH, CMP #### [facility] [address] [address] [address] Chi Keith Cholesterol.total/Cho lesterol in HDL [Mass ratio] 5.1 {ratio} Normal [facility] Comment on above: Performed By: #### T 7, LIPID, TSH, CMP #### [facility] [address] [place] [address] Dr. Chi Keith HDL NORMAL > or = 60 mg/dl - LO W CARDIOVASCULAR RISK <40 mg/dl - HIGH CARDIOVASCULAR RISK Normal [facility] Comment on above: Performed By: #### T 7, LIPID, TSH, CMP #### [facility] [address] [place] [address] Dr. Chi Keith LDL CALC NORMAL SEE BELOW Normal [facility] Comment on above: Result Comment: <100 mg/dl OPTIMAL 100 - 129 mg/dl NEAR OR ABOVE OPTIMAL 130 - 159 mg/dl BORDERLINE HIGH 160 - 189 mg/dl HIGH >190 mg/dl VERY HIGH Performed By: #### T 7, LIPID, TSH, CMP #### [facility] [address] [address] [address] Chi Keith Triglyceride [Mass/Vol] 165 mg/dL Critically high <=150 [facility] Comment on above: Performed By: #### T 7, LIPID, TSH, CMP #### [facility] [address] [address] [address] Chi Keith VLDL CALC 33.0 mg/dL Normal [facility] Comment on above: Performed By: #### T 7, LIPID, TSH, CMP #### [facility] [address] [address] [address] Chi Keith PROF 14(COMP METB)on 023 Albumin [Mass/Vol] 3.1 g/dL Critically low 3.4-5.0 [facility] Comment on above: Performed By: #### T 7, LIPID, TSH, CMP #### [facility] [address] [place] [address] Dr. Chi Keith Albumin/Globulin [Mass ratio] 0.8 {ratio} Normal [facility] Comment on above: Performed By: #### T 7, LIPID, TSH, CMP #### [facility] [address] [place] [address] Dr. Chi Keith ALP [Catalytic activity/Vol] 86 U/L Normal 46-116 [facility] Comment on above: Performed By: #### T 7, LIPID, TSH, CMP #### [facility] [address] [address] [address] Chi Keith ALT [Catalytic activity/Vol] 35 U/L Normal 14-59 [facility] Comment on above: Performed By: #### T 7, LIPID, TSH, CMP #### [facility] [address] [place] [address] Dr. Chi Keith Anion gap [Moles/Vol] 13.9 mmol/L Normal [facility] Comment on above: Performed By: #### T 7, LIPID, TSH, CMP #### [facility] [address] [place] [address] Dr. Chi Keith AST [Catalytic activity/Vol] 29 U/L Normal 15-37 [facility] Comment on above: Performed By: #### T 7, LIPID, TSH, CMP #### [facility] [address] [place] [address] Dr. Chi Keith Bilirubin [Mass/Vol] 0.6 mg/dL Normal 0.2-1.0 [facility] Comment on above: Performed By: #### T 7, LIPID, TSH, CMP #### [facility] [address] [place] [address] Dr. Chi Keith Calcium [Mass/Vol] 9.7 mg/dL Normal 8.5-10.1 [facility] Comment on above: Performed By: #### T 7, LIPID, TSH, CMP #### [facility] [address] [place] [address] Dr. Chi Keith Chloride [Moles/Vol] 106 mmol/L Normal 98-107 [facility] Comment on above: Performed By: #### T 7, LIPID, TSH, CMP #### [facility] [address] [place] [address] Dr. Chi Keith CO2 [Moles/Vol] 28.1 mmol/L Normal 21.0-32.0 [facility] Comment on above: Performed By: #### T 7, LIPID, TSH, CMP #### [facility] [address] [place] [address] Dr. Chi Keith Creatinine [Mass/Vol] 1.33 mg/dL Critically high 0.55-1.02 [facility] Comment on above: Performed By: #### T 7, LIPID, TSH, CMP #### [facility] [address] [place] [address] Dr. Chi Keith EGFR-AF TOGOLESE 49 mL/min/1.73m2 Critically low >=60 [facility] Comment on above: Performed By: #### T 7, LIPID, TSH, CMP #### [facility] [address] [place] [address] Dr. Chi Keith EGFR-NON AF TOGOLESE 41 mL/min/1.73m2 Critically low >=60 [facility] Comment on above: Performed By: #### T 7, LIPID, TSH, CMP #### [facility] [address] [address] [address] Chi Keith Globulin (S) [Mass/Vol] 3.8 g/dL Normal [facility] Comment on above: Performed By: #### T 7, LIPID, TSH, CMP #### [facility] [address] [address] [address] Chi Keith Glucose [Mass/Vol] 116 mg/dL Critically high 74-106 [facility] Comment on above: Performed By: #### T 7, LIPID, TSH, CMP #### [facility] [address] [place] [address] Dr. Chi Keith Potassium [Moles/Vol] 4.0 mmol/L Normal 3.5-5.1 [facility] Comment on above: Performed By: #### T 7, LIPID, TSH, CMP #### [facility] [address] [place] [address] Dr. Chi Keith Protein [Mass/Vol] 6.9 g/dL Normal 6.4-8.2 [facility] Comment on above: Performed By: #### T 7, LIPID, TSH, CMP #### [facility] [address] [place] [address] Dr. Chi Keith Sodium [Moles/Vol] 144 mmol/L Normal 136-145 [facility] Comment on above: Performed By: #### T 7, LIPID, TSH, CMP #### [facility] [address] [address] [address] Chi Keith Urea nitrogen [Mass/Vol] 20.0 mg/dL Critically high 7.0-18.0 [facility] Comment on above: Performed By: #### T 7, LIPID, TSH, CMP #### [facility] [address] [place] [address] Dr. Chi Keith Urea nitrogen/Creatinine [Mass ratio] 15.0 mg/mg Normal [facility] Comment on above: Performed By: #### T 7, LIPID, TSH, CMP #### [facility] [address] [place] [address] Dr. Chi Keith TSHon 01-23-2023 TSH 0.995 uIU/mL Normal 0.358-3.740 [facility] Comment on above: Performed By: #### T 7, LIPID, TSH, CMP #### [facility] [address] [place] [address] Dr. Chi Keith [facility]on SARS-CoV-2 (COVID-19) RNA ALEXANDREA+probe Ql (Unsp spec) Detected Critically abnormal NOT DETECTED [facility] Comment on above: Result Comment: This test is not yet approved or cleared by the [place] FDA. When there are no FDA-approved or cleared tests available, and other criteria are met, FDA can make tests available under an emergency access mechanism called an Emergency Use Authorization (EUA). The EUA for this test is supported by the [employer] of Health and Human Service's declaration that [...] used). Performed By: #### I VINCE #### [facility] [address] [place] [address] Dr. Chi Keith INFLUENZA A AND B AGon 08-13 INFLUENZA A AG Negative Normal NEGATIVE SEE COMMENT [facility] Comment on above: Performed By: #### I VINCE #### [facility] [address] [place] [address] Dr. Chi Keith INFLUENZA B AG Negative Normal NEGATIVE SEE COMMENT [facility] Comment on above: Performed By: #### I VINCE #### [facility] [address] [place] [address] Dr. Chi Keith INTERNAL CONTROLS Within Normal Limits Normal Wi thin Normal Limits [facility] Comment on above: Performed By: #### I VINCE #### [facility] [address] [place] [address] Dr. Chi Keith CARDIAC [place] ADMITon 022 CK [Catalytic activity/Vol] 34 U/L Normal 26-192 [facility] Comment on above: Performed By: #### I VINCE #### [facility] [address] [place] [address] Dr. Chi Keith CK.MB [Mass/Vol] 0.71 ng/mL Normal <=3.60 [facility] Comment on above: Performed By: #### I VINCE #### [facility] [address] [place] [address] Dr. Chi Keith HSTROP 11.6 pg/mL Normal 4.0-51.3 [facility] Comment on above: Result Comment: CUT- OFF POINTS HAVE BEEN ESTABLISHED BASED ON THE FOURTH UNIVERSAL DEFINITIONS OF MYOCARDIAL INFARCTION. THE UPPER REFERENCE LIMIT (URL) OF TROPONIN, DEFINED THE 99TH PERCENTILE OF cTnI DISTRIBUTION IN A REFERENCE POPULATION, HAS BEEN CONFIRMED THE DECISION THRESHOLD FOR NE DIAGNOSIS. Performed By: #### I VINCE #### [facility] [address] [place] [address] Dr. Chi Keith FAUSTO 57 ng/mL Normal 9-82 [facility] Comment on above: Performed By: #### I VINCE #### [facility] [address] [place] [address] Dr. Chi Keith CBC AUTO DIFFon 04-09-2022 BASO # 0.0 103/ul Normal 0.0-0.1 [facility] Comment on above: Performed By: #### I VINCE #### [facility] [address] [place] [address] Dr. Chi Keith Basophils/100 WBC (Bld) 0.4 % Normal 0.2-2.0 [facility] Comment on above: Performed By: #### I VINCE #### [facility] [address] [place] [address] Dr. Chi Keith EO # 0.1 103/ul Normal 0.0-0.7 [facility] Comment on above: Performed By: #### I VINCE #### [facility] [address] [place] [address] Dr. Chi Keith Eosinophils/100 WBC (Bld) 0.7 % Critically low 0.9-7.0 [facility] Comment on above: Performed By: #### I VINCE #### [facility] [address] [place] [address] Dr. Chi Keith Erythrocyte distribution width (RBC) [Ratio] 14.5 % Normal 11.0-15.0 [facility] Comment on above: Performed By: #### I VINCE #### [facility] [address] [place] [address] Dr. Chi Keith Hematocrit (Bld) [Volume fraction] 42.1 % Normal 36.0-48.0 [facility] Comment on above: Performed By: #### I VINCE #### [facility] [address] [place] [address] Dr. Chi Keith Hemoglobin (Bld) [Mass/Vol] 13.5 g/dL Normal 12.0-16.0 [facility] Comment on above: Performed By: #### I VINCE #### [facility] [address] [place] [address] Dr. Chi Keith IG # 0.03 10e3/ul Normal 0.00-0.03 [facility] Comment on above: Performed By: #### I VINCE #### [facility] [address] [place] [address] Dr. Chi Keith IG % 0.3 % Normal 0.0-0.5 [facility] Comment on above: Performed By: #### I VINCE #### [facility] [address] [place] [address] Dr. Chi Keith LYMPH # 1.8 103/ul Normal 1.2-3.8 [facility] Comment on above: Performed By: #### I VINCE #### [facility] [address] [place] [address] Dr. Chi Keith Lymphocytes/100 WBC (Bld) 18.3 % Critically low 20.5-60.0 [facility] Comment on above: Performed By: #### I VINCE #### [facility] [address] [place] [address] Dr. Chi Keith MANUAL DIFF REQ NO Normal [facility] Comment on above: Performed By: #### I VINCE #### [facility] [address] [address] [address] Chi Keith MCH (RBC) [Entitic mass] 30.5 pg Normal 26.7-34.0 [facility] Comment on above: Performed By: #### I VINCE #### [facility] [address] [address] [address] Chi Keith MCHC (RBC) [Mass/Vol] 32.1 g/dL Normal 29.9-35.2 [facility] Comment on above: Performed By: #### I VINCE #### [facility] [address] [place] [address] Dr. Chi Keith MCV (RBC) [Entitic vol] 95.2 fL Normal 81.0-99.0 [facility] Comment on above: Performed By: #### I VINCE #### [facility] [address] [place] [address] Dr. Chi Keith MONO # 0.6 103/ul Normal 0.3-0.8 [facility] Comment on above: Performed By: #### I VINCE #### [facility] [address] [place] [address] Dr. Chi Keith Monocytes/100 WBC (Bld) 6.3 % Normal 1.7-12.0 [facility] Comment on above: Performed By: #### I VINCE #### [facility] [address] [place] [address] Dr. Chi Keith NEUT # 7.5 103/ul Critically high 1.4-6.5 [facility] Comment on above: Performed By: #### I VINCE #### [facility] [address] [place] [address] Dr. Chi Keith Neutrophils/100 WBC (Bld) 74.0 % Normal 43.0-75.0 [facility] Comment on above: Performed By: #### I VINCE #### [facility] [address] [place] [address] Dr. Chi Keith Platelet mean volume (Bld) [Entitic vol] 9.3 fL Critically low 9.5-13.5 [facility] Comment on above: Performed By: #### I VINCE #### [facility] [address] [place], [place] [address] Dr. Chi Keith PLT 316 103/ul Normal 150-450 [facility] Comment on above: Performed By: #### I VINCE #### [facility] [address] [place], [place] [address] Dr. Chi Keith RBC 4.42 106/ul Normal 4.20-5.40 [facility] Comment on above: Performed By: #### I VINCE #### [facility] [address] [place], [place] [address] Dr. Chi Keith WBC 10.1 103/ul Normal 4.0-11.0 [facility] Comment on above: Performed By: #### I VINCE #### [facility] [address] [address] [address] FACIAL BONES WO [...] SUNIL THOMPSON Date: 2022-04-09 15:58 Normal [facility] CT HEAD WO CONon 04-09-2022 CT [...] SUNIL THOMPSON Date: 2022-04-09 15:51 Normal [facility] ER URINE PROFILEon 2 Bilirubin Ql (U) MODERATE Abnormal NEGATIVE [facility] Comment on above: Performed By: #### I VINCE #### [facility] [address] [place] [address] Dr. Chi Keith Clarity (U) CLEAR Normal CLEAR [facility] Comment on above: Performed By: #### I VINCE #### [facility] [address] [place] [address] Dr. Chi Keith Color (U) DK. YELLOW Normal YELLOW [facility] Comment on above: Performed By: #### I VINCE #### [facility] [address] [place] [address] Dr. Chi Keith ERUAHD A micrscopic examina tion will be performed if indicated. Normal [facility] Comment on above: Performed By: #### I VINCE #### [facility] [address] [place] [address] Dr. Chi Keith Glucose Ql (U) Negative Normal NEGATIVE [facility] Comment on above: Performed By: #### I VINCE #### [facility] [address] [place] [address] Dr. Chi Keith Hemoglobin Ql (U) TRACE-INTACT Abnormal NEGATIVE [facility] Comment on above: Performed By: #### I VINCE #### [facility] [address] [place] [address] Dr. Chi Keith Ketones Ql (U) 15 mg/dl Abnormal NEGATIVE [facility] Comment on above: Performed By: #### I VINCE #### [facility] [address] [place] [address] Dr. Chi Keith LEUKOCYTES Negative Normal NEGATIVE [facility] Comment on above: Performed By: #### I VINCE #### [facility] [address] [place] [address] Dr. Chi Keith Nitrite Ql (U) Negative Normal NEGATIVE [facility] Comment on above: Performed By: #### I VINCE #### [facility] [address] [place] [address] Dr. Chi Keith pH (U) 5.5 [pH] Normal 5-9 [facility] Comment on above: Performed By: #### I VINCE #### [facility] [address] [place] [address] Dr. Chi Keith Protein (U) [Mass/Vol] 30 mg/dL Abnormal NEGATIVE/ TRACE [facility] Comment on above: Performed By: #### I VINCE #### [facility] [address] [place] [address] Dr. Chi Keith SPEC GRAVITY >=1.030 Abnormal 1.005-<=1.[address] [place] [address] Comment on above: Performed By: #### I VINCE #### [facility] [address] [place] [address] Dr. Chi Keith UR MICRO IND INDICATED Normal [facility] Comment on above: Performed By: #### I VINCE #### [facility] [address] [place] [address] Dr. Chi Keith Urobilinogen Qn (U) 1.0 {Mani'U}/dL Normal 0.2 - 1. 0 [facility] Comment on above: Performed By: #### I VINCE #### [facility] [address] [place] [address] Dr. Chi Keith PROF 14(COMP METB)on 022 Albumin [Mass/Vol] 3.3 g/dL Critically low 3.4-5.0 [facility] Comment on above: Performed By: #### C MADM, CMP, TSH #### [facility] [address] [address] [address] Chi Keith Albumin/Globulin [Mass ratio] 0.9 {ratio} Normal [facility] Comment on above: Performed By: #### C MADM, CMP, TSH #### [facility] [address] [address] [address] Chi Keith ALP [Catalytic activity/Vol] 87 U/L Normal 46-116 [facility] Comment on above: Performed By: #### C MADM, CMP, TSH #### [facility] [address] [place] [address] Dr. Chi Keith ALT [Catalytic activity/Vol] 34 U/L Normal 14-59 [facility] Comment on above: Performed By: #### C MADM, CMP, TSH #### [facility] [address] [address] [address] Chi Keith Anion gap [Moles/Vol] 12.2 mmol/L Normal [facility] Comment on above: Performed By: #### C MADM, CMP, TSH #### [facility] [address] [place] [address] Dr. Chi Ketih AST [Catalytic activity/Vol] 16 U/L Normal 15-37 [facility] Comment on above: Performed By: #### C MADM, CMP, TSH #### [facility] [address] [address] [address] Chi Keith Bilirubin [Mass/Vol] 0.6 mg/dL Normal 0.2-1.0 [facility] Comment on above: Performed By: #### C MADM, CMP, TSH #### [facility] [address] [address] [address] Chi Keith Calcium [Mass/Vol] 9.8 mg/dL Normal 8.5-10.1 [facility] [facility] Comment on above: Performed By: #### C MADM, CMP, TSH #### [facility] [address] [address] [address] Chi Keith Chloride [Moles/Vol] 106 mmol/L Normal 98-107 [facility] Comment on above: Performed By: #### C MADM, CMP, TSH #### [facility] [address] [address] [address] Chi Keith CO2 [Moles/Vol] 27.9 mmol/L Normal 21.0-32.0 [facility] Comment on above: Performed By: #### C MADM, CMP, TSH #### [facility] [address] [place] [address] Dr. Chi Keith Creatinine [Mass/Vol] 1.13 mg/dL Critically high 0.55-1.02 [facility] Comment on above: Performed By: #### C MADM, CMP, TSH #### [facility] [address] [place] [address] Dr. Chi Keith EGFR-AF TOGOLESE =60 Normal >=60 [facility] Comment on above: Performed By: #### C MADM, CMP, TSH #### [facility] [address] [place] [address] Dr. Chi Keith EGFR-NON AF TOGOLESE 49 mL/min/1.73m2 Critically low >=60 [facility] Comment on above: Performed By: #### C MADM, CMP, TSH #### [facility] [address] [place] [address] Dr. Chi Keith Globulin (S) [Mass/Vol] 3.8 g/dL Normal [facility] Comment on above: Performed By: #### C MADM, CMP, TSH #### [facility] [address] [place] [address] Dr. Chi Keith Glucose [Mass/Vol] 115 mg/dL Critically high 74-106 [facility] Comment on above: Performed By: #### C MADM, CMP, TSH #### [facility] [address] [place] [address] Dr. Chi Keith Potassium [Moles/Vol] 4.1 mmol/L Normal 3.5-5.1 [facility] Comment on above: Performed By: #### C THERESE TORRES, TSH #### [facility] [address] [place] [address] Dr. Chi Keith Protein [Mass/Vol] 7.1 g/dL Normal 6.4-8.2 [facility] Comment on above: Performed By: #### C THERESE TORRES, TSH #### [facility] [address] [place] [address] Dr. Chi Keith Sodium [Moles/Vol] 142 mmol/L Normal 136-145 [facility] Comment on above: Performed By: #### C THERESE TORRES, TSH #### [facility] [address] [place] [address] Dr. Chi Keith Urea nitrogen [Mass/Vol] 21.0 mg/dL Critically high 7.0-18.0 [facility] Comment on above: Performed By: #### C THERESE TORRES, TSH #### [facility] [address] [place] [address] Dr. Chi Keith Urea nitrogen/Creatinine [Mass ratio] 18.6 mg/mg Normal [facility] Comment on above: Performed By: #### C THERESE TORRES, TSH #### [facility] [address] [place] [address] Dr. Chi Keith PROTIMEon 04-09-2022 INR Coag (PPP) [Relative time] 0.97 {INR} Normal [facility] Comment on above: Performed By: #### I VINCE #### [facility] [address] [place] [address] Dr. Chi Keith INR GUIDELINES SEE BELOW Normal [facility] Comment on above: Result Comment: LISA RED INR: 2.0 - 3.0 CONDITIONS NOT LISTED BELOW 2.5 - 3.5 FOR PROSTHETIC HEART VALVE REPLACEMENT 2.5 - 3.5 RECURRENT THROMBOSIS Performed By: #### I VINCE #### [facility] [address] [place] [address] Dr. Chi Keith PT Coag (PPP) [Time] 10.5 s Normal 9.0-11.6 [facility] Comment on above: Performed By: #### I VINCE #### [facility] [address] [place] [address] Dr. Chi Keith PTTon 04-09-2022 aPTT Coag (Bld) [Time] 23.1 s Normal 22.3-36.2 [facility] Comment on above: Performed By: #### I VINCE #### [facility] [address] [place] [address] Dr. Chi Keith TSHon 04-09-2022 TSH 0.511 uIU/mL Normal 0.358-3.740 [facility] Comment on above: Performed By: #### C MADM, CMP, TSH #### [facility] [address] [place] [address] Dr. Chi Keith URINE MICROSCOPIC ONLYon BACTERIA TRACE Abnormal NONE SEEN [facility] Comment on above: Performed By: #### I VINCE #### [facility] [address] [place] [address] Dr. Chi Keith Bacteria identified Cx Nom (U) NOT INDICATED Normal [facility] Comment on above: Performed By: #### I VINCE #### [facility] [address] [place] [address] Dr. Chi Keith CAST SEEN Abnormal NONE SEEN [facility] Comment on above: Performed By: #### I VINCE #### [facility] [address] [place] [address] Dr. Chi Keith Crystals LM Nom (Urine sed) NONE SEEN Normal NONE SEEN [facility] Comment on above: Performed By: #### I VINCE #### [facility] [address] [place] [address] Dr. Chi Keith Epithelial cells LM Ql (Urine sed) FEW Abnormal NONE SEEN /RARE [facility] Comment on above: Performed By: #### I VINCE #### [facility] [address] [place] [address] Dr. Chi Keith HYALINE CAST RARE Normal [facility] Comment on above: Performed By: #### I VINCE #### [facility] [address] [address] [address] Chi Keith MUCOUS SMALL Abnormal NONE SEEN [facility] Comment on above: Performed By: #### I VINCE #### [facility] [address] [address] [address] Chi Keith RBC 2-5 Abnormal 0-2 [facility] Comment on above: Performed By: #### I VINCE #### [facility] [address] [address] [address] Chi Keith WBC 0-2 Abnormal NONE SEEN [facility] Comment on above: Performed By: #### I VINCE #### [facility] [address] [address] [address] Chi Keith Cardiovascular Lab Reporton 05-11-2017 Cardiovascular Lab Report [facility] Patient Name: Melissa Dubose [facility]: [id number] Physician: Justine Parks M.D.Department of Service Date: 05/10/2017Medicine Birthdate: [birth year]Division of Room #: [facility]iv [facility] [place], [place] [address]Cqotd Fax Cardiovascular Laboratory ReportINDICATION:Melissa Dubose is a [...] She signedinformed consent. She was brought to bundle tier and labeler in a fasting state. Theright groin area was prepped and draped in usual fashion. Usingmicropuncture technique, the right common femoral artery was accessed. Theinner cannula was advanced. Limited right femoral angiography wasperformed followed by upsizing to a 6-Nicaraguan x 11 cm sheath. Bilateralselective renal angiography was then performed using 6-Nicaraguan JL4 and RY1ezuvbznfnj catheters. The 6-Nicaraguan JR4 diagnostic catheter was used toselectively engage the saphenous venous graft to the OM and the radialgraft to the PDA. Angiography was performed. Catheter was exchanged to a6-Nicaraguan CYNTHIA catheter, which was used to selectively [...] coronary artery disease.2. Patent 3/3 bypass grafts.RECOMMENDATIONS:[facility] therapy and follow up in Cardiology Clinic.Electronically Signed by:Justine Parks M.D. 06/01/2017 08:16 A Justine Parks M.D.Date Dict: 05/10/2017/01:01 P/Justine Parks M.D.Date Trans: 05/11/2017 09:53 [id number] c: Madison Magana M.D. [address], [facility] [place] [address] [facility] Vital Signs Date Time Vital Sign Value Performing Clinician Facility 04-22-2025 12:27-0400 Body mass index (BMI) [Ratio] 31.8 kg/m2 Chet Furlong DO Work Phone: [facility] [employer] 04-22-2025 12:27-0400 Body temperature 97.59 [degF] Chet Furlong DO Work Phone: [facility] [employer] [facility] 04-22-2025 12:27-0400 Body weight 100.52 kg [facility] 04-22-2025 12:27-0400 Diastolic blood pressure 62 mm[Hg] Chet Furlong [facility] 04-22-2025 12:27-0400 Heart rate 108 /min Chet Furlong DO [facility] 04-22-2025 12:27-0400 Respiratory rate 18 /min Chet Furlong DO [facility] 04-22-2025 12:27-0400 SaO2% (BldA) [Mass fraction] 94 % Chet Furlong DO Work Phone: [facility] [employer] 04-22-2025 12:27-0400 Systolic blood pressure 99 mm[Hg] Chet Furlong DO [facility] 04-16-2025 15:33-0400 Body mass index (BMI) [Ratio] 32.14 kg/m2 Chet Furlong DO Work Phone: [facility] [employer] [facility] 04-16-2025 15:33-0400 Body temperature 97.59 [degF] Chet Furlong DO Work Phone: [facility] [employer] [facility] 04-16-2025 15:33-0400 Body weight 101.61 kg Chet Furlong DO Work Phone: [facility] [employer] [facility] 04-16-2025 15:33-0400 Diastolic blood pressure 46 mm[Hg] Chet Furlong DO Work Phone: [facility] [employer] [facility] 04-16-2025 15:33-0400 Heart rate 76 /min Chet Furlong DO Work Phone: [facility] [employer] [facility] 04-16-2025 15:33-0400 Respiratory rate 16 /min Chet Furlong DO Work Phone: [facility] 04-16-2025 15:33-0400 SaO2% (BldA) [Mass fraction] 97 % Chet Furlong DO Work Phone: [facility] [employer] [facility] 04-16-2025 15:33-0400 Systolic blood pressure 80 mm[Hg] Chet Furlong DO Work Phone: [facility] [employer] [facility] 04-13-2025 10:08-0400 Body mass index (BMI) [Ratio] 33.27 kg/m2 Chet Furlong DO Work Phone: [facility] [employer] [facility] 04-13-2025 10:08-0400 Body temperature 97.3 [degF] Chet Furlong DO Work Phone: [facility] 04-13-2025 10:08-0400 Body weight 105.19 kg Chet Furlong DO Work Phone: [facility] [employer] [facility] 04-13-2025 10:08-0400 Diastolic blood pressure 60 mm[Hg] Chet Furlong DO Work Phone: [employer] 04-13-2025 10:08-0400 Heart rate 92 /min [facility] 04-13-2025 10:08-0400 Respiratory rate 16 /min Chet Wonglong DO [facility] 04-13-2025 10:08-0400 SaO2% (BldA) [Mass fraction] 98 % Chet Wonglong DO Work Phone: [employer] 04-13-2025 10:08-0400 Systolic blood pressure 90 mm[Hg] Chet Wonglong [facility] 04-07-2025 09:16-0400 SaO2% (BldA) [Mass fraction] 94 % Glenny Ahmadi MD Work Phone: [facility] 04-07-2025 08:55-0400 Body temperature 97.7 [degF] Glenny Ahmadi MD Work Phone: [facility] 04-07-2025 08:55-0400 Diastolic blood pressure 78 mm[Hg] Glenny Ahmadi MD Work Phone: [facility] 04-07-2025 08:55-0400 Heart rate 87 /min Glenny Ahmadi MD Work Phone: [facility] 04-07-2025 08:55-0400 Respiratory rate 16 /min Glenny Ahmadi MD Work Phone: [facility] 04-07-2025 08:55-0400 Systolic blood pressure 112 mm[Hg] Glenny Ahmadi MD Work Phone: [facility] 04-07-2025 04:51-0400 Body mass index (BMI) [Ratio] 36.57 kg/m2 Glenny Ahmadi MD Work Phone: [facility] 04-07-2025 04:51-0400 Body weight 115.6 kg Glenny Ahmadi MD Work Phone: [facility] 03-26-2025 09:23-0400 Body temperature 37.0 degrees Celsius [facility] Comment on above: Performed By: #### [id number] ####DERRICK Hall ([id number])[facility] ([facility])[address] [place] [address] 03-23-2025 08:51-0400 Body temperature 37.0 degrees Celsius [facility] Comment on above: Performed By: #### [id number] ####DERRICK Hall ([id number])[facility] ([facility])[address] [place] [address] 03-23-2025 08:51-0400 SaO2% (BldA) [Mass fraction] 92 % [facility] Comment on above: Performed By: #### [id number] ####DERRICK Hall ([id number])[facility] ([facility])[address] [place] [address] 03-22-2025 11:00-0400 Body height 177.8 cm Glenny Ahmadi MD Work Phone: [facility] 09-24-2024 16:30-0500 Blood Pressure Location Benjy JOHNSON [facility] 09-24-2024 16:30-0500 Body temperature 97.7 [degF] Benjy JOHNSON [facility] 09-24-2024 16:30-0500 Diastolic blood pressure 70 mm[Hg] Benjy JOHNSON [facility] 09-24-2024 16:30-0500 Heart rate 78 /min Benjy JOHNSON [facility] 09-24-2024 16:30-0500 Mean blood pressure 91 mm[Hg] Benjy JOHNSON [facility] 09-24-2024 16:30-0500 SaO2% (BldA) [Mass fraction] 95 % Benjy JOHNSON [facility] 09-24-2024 16:30-0500 Systolic blood pressure 134 mm[Hg] Benjy COOK [facility] 09-24-2024 15:43-0500 Heart rate 77 /min Benjy COOK [facility] 09-24-2024 15:43-0500 SaO2% (BldA) [Mass fraction] 93 % Benjy JOHNSON [facility] 09-24-2024 15:43-0500 Diastolic blood pressure 69 mm[Hg] Benjy COOK [facility] 09-24-2024 15:43-0500 Mean blood pressure 85 mm[Hg] Benjy COOK [facility] 09-24-2024 15:43-0500 Systolic blood pressure 115 mm[Hg] Benjy JOHNSON [facility] 09-24-2024 15:43-0500 Blood Pressure Location Benjy COOK [facility] 09-24-2024 15:43-0500 Body temperature 97.52 [degF] Benjy COOK [facility] 09-24-2024 15:30-0500 Blood Pressure Location Benjy COOK [facility] 09-24-2024 15:30-0500 Body temperature 97.34 [degF] Benjy COOK [facility] 09-24-2024 15:30-0500 Diastolic blood pressure 73 mm[Hg] Benjy COOK [facility] 09-24-2024 15:30-0500 Heart rate 69 /min Benjy COOK [facility] 09-24-2024 15:30-0500 Mean blood pressure 89 mm[Hg] Benjy JOHNSON [facility] 09-24-2024 15:30-0500 Respiratory rate 17 /min Benjy JOHNSON [facility] 09-24-2024 15:30-0500 SaO2% (BldA) [Mass fraction] 92 % Benjy JOHNSON [facility] 09-24-2024 15:30-0500 Systolic blood pressure 122 mm[Hg] Benjy JOHNSON [facility] 09-24-2024 15:15-0500 Mean blood pressure 95 mm[Hg] Benjy JOHNSON [facility] 09-24-2024 15:15-0500 Respiratory rate 16 /min Benjy JOHNSON [facility] 09-24-2024 15:10-0500 Respiratory rate 17 /min Benjy JOHNSON [facility] 09-24-2024 11:45-0500 Mean blood pressure 87 mm[Hg] Benjy JOHNSON [facility] 09-24-2024 11:43-0500 Respiratory rate 20 /min Benjy JOHNSON [facility] 09-24-2024 11:43-0500 Body temperature 97.7 [degF] Benjy JOHNSON [facility] 09-24-2024 11:43-0500 Mean blood pressure 91 mm[Hg] Benjy JOHNSON [facility] 09-17-2024 13:33-0500 Heart rate 61 /min Benjy JOHNSON [facility] 09-17-2024 13:33-0500 SaO2% (BldA) [Mass fraction] 97 % Benjy COOK [facility] 09-17-2024 13:33-0500 Diastolic blood pressure 73 mm[Hg] Benjy COOK [facility] 09-17-2024 13:33-0500 Mean blood pressure 88 mm[Hg] Benjy COOK [facility] 09-17-2024 13:33-0500 Systolic blood pressure 118 mm[Hg] Benjy COOK [facility] 09-17-2024 13:32-0500 Heart rate 63 /min Benjy COOK [facility] 09-17-2024 13:32-0500 SaO2% (BldA) [Mass fraction] 96 % Benjy COOK [facility] 09-17-2024 13:32-0500 Respiratory rate 18 /min Benjy COOK [facility] 09-17-2024 13:32-0500 Diastolic blood pressure 84 mm[Hg] Benjy COOK [facility] 09-17-2024 13:32-0500 Mean blood pressure 99 mm[Hg] Benjy COOK [facility] 09-17-2024 13:32-0500 Systolic blood pressure 129 mm[Hg] Benjy COOK [facility] 08-20-2024 15:06-0500 Diastolic blood pressure 68 mm[Hg] Benjy COOK [facility] 08-20-2024 15:06-0500 Heart rate 80 /min Benjy COOK [facility] 08-20-2024 15:06-0500 Respiratory rate 16 /min Benjy COOK [facility] 08-20-2024 15:06-0500 Systolic blood pressure 104 mm[Hg] Benjy JOHNSON [facility] 06-02-2024 13:56-0400 Diastolic blood pressure 78 mm[Hg] Ashley Orzech [facility] 06-02-2024 13:56-0400 Heart rate 56 /min Ashley Orzech [facility] 06-02-2024 13:56-0400 Respiratory rate 16 /min Ashley Orzech [facility] 06-02-2024 13:56-0400 Systolic blood pressure 126 mm[Hg] Ashley Orzech [facility] 11-25-2023 11:01-0400 Body temperature 97.7 [degF] MD Madison Magana Work Phone: [facility] 11-25-2023 11:01-0400 Diastolic blood pressure 65 mm[Hg] MD Madison Magana Work Phone: [facility] 11-25-2023 11:01-0400 Heart rate 90 /min MD Madison Magana Work Phone: [facility] 11-25-2023 11:01-0400 Respiratory rate 16 /min MD Madison Magana Work Phone: [facility] 11-25-2023 11:01-0400 SaO2% (BldA) [Mass fraction] 97 % MD Madison Magana Work Phone: [facility] 11-25-2023 11:01-0400 Systolic blood pressure 108 mm[Hg] MD Madison Magana Work Phone: [facility] 11-25-2023 06:00-0400 Body weight 103 kg MD Madison Magana Work Phone: [facility] 11-24-2023 20:00-0400 Inhaled oxygen flow rate 2 L/min MD Madison Magana Work Phone: [facility] 11-21-2023 14:58-0400 Body height 177.8 cm MD Madison Magana Work Phone: [facility] Encounters Encounter Date Encounter Type Care Provider Facility Start: 04-21-2025 End: 04-22-2025 ambulatory Chet Longo Grouper Work Phone: [facility] [...] Start: 04-16-2025 End: 04-16-2025 ambulatory Chet Longo Grouper Work Phone: [facility] Comment on above: Hypotension, unspeci fied hypotension type (Primary Dx); Chronic heart failure, unspecified heart failure type (CMS-HCC); Primary hypertension; Chronic obstructive pulmonary disease, unspecified COPD type (CMS-HCC); Malignant neoplasm of unspecified part of right bronchus or lung (CMS-HCC) Start: 04-13-2025 End: 04-17-2025 ambulatory Chet Longo Grouper Work Phone: [facility] Comment on above: Malignant neoplasm o f unspecified part of right bronchus or lung (CMS-HCC) (Primary Dx); Nausea and vomiting, unspecified vomiting type; Chronic obstructive pulmonary disease, unspecified COPD type (CMS-HCC); Muscle weakness (generalized); Unsteadiness on feet; Gastrointestinal hemorrhage, unspecified gastrointestinal hemorrhage type; Atrial fibrillation, unspecified type ([facility]-H[facility]) Start: 04-07-2025 End: 04-21-2025 Continuing Care Chet Longo DO Work Phone: [facility] Comment on above: Acute respiratory fa ilure with hypoxia ([facility]-HCC) (Primary Dx); Malignant neoplasm of unspecified part of right bronchus or lung ([facility]-HCC); Chronic obstructive pulmonary disease, unspecified COPD type (CMS-HCC); Diabetic polyneuropathy associated with type 2 diabetes mellitus (CMS-HCC); Muscle weakness (generalized); Chronic heart failure, unspecified heart failure type ([facility]-HCC); Primary hypertension; Atrial fibrillation, unspecified type ([facility]); Unsteadiness on feet; Atherosclerosis of [place] coronary artery of [place] heart without angina pectoris; Noninfectious gastroenteritis, unspecified type; Pneumothorax, unspecified type; Cigarette nicotine dependence with nicotine-induced disorder; Gastroesophageal reflux disease without esophagitis; Ischemic cardiomyopathy Start: 04-01-2025 End: 04-01-2025 ambulatory [facility] Start: 04-01-2025 End: 04-01-2025 Subsequent hospital visit by physician Cierra Milton [facility] Comment on above: Arrived Encounter for antine oplastic radiation therapy; Malignant neoplasm of right main bronchus (Multi) Start: 04-01-2025 End: 04-01-2025 ambulatory [facility] Start: 03-31-2025 End: 03-31-2025 ambulatory [facility] Start: 03-31-2025 End: 03-31-2025 Subsequent hospital visit by physician Carlitos Thompson Onc Tx Plan [facility] Comment on above: Arrived Start: 03-30-2025 End: 03-30-2025 Subsequent hospital visit by physician Carlitos [employer] [facility] Comment on above: Malignant neoplasm o f upper lobe, right bronchus or lung (Primary Dx) Start: 03-30-2025 End: 03-30-2025 ambulatory [facility] Start: 03-30-2025 End: 03-30-2025 Subsequent hospital visit by physician [facility] External [employer] [facility] Comment on above: Malignant neoplasm o f upper lobe, right bronchus or lung Start: 03-29-2025 End: 03-29-2025 Evaluation and management of inpatient BETH W [facility] Start: 03-22-2025 End: 04-07-2025 Evaluation and management of inpatient Glenny Ahmadi MD Work Phone: [facility] 5 Start: 02-09-2025 End: 02-10-2025 ambulatory [facility] Start: 12-04-2024 End: 12-04-2024 ambulatory [facility] Start: 09-24-2024 End: 09-24-2024 Admission to same day surgery center Benjy JOHNSON [facility] Start: 09-24-2024 End: 09-24-2024 ambulatory [facility]jy JOHNSON [place] Start: 09-17-2024 End: 09-17-2024 ambulatory Benjy JOHNSON [facility] Start: 09-17-2024 End: 09-17-2024 Patient encounter procedure Benjy JOHNSON [facility] Start: 08-24-2024 End: 08-24-2024 ambulatory [facility] Start: 08-24-2024 End: 08-24-2024 Encounter for preprocedural cardiovascular examination [facility] Start: 08-20-2024 End: 08-20-2024 Lab Drop off Benjy JOHNSON [facility] Start: 08-20-2024 End: 08-20-2024 ambulatory Benjy JOHNSON [facility] Start: 08-20-2024 End: 08-20-2024 Patient encounter procedure Benjy JOHNSON [facility] Start: 07-29-2024 End: 07-29-2024 ambulatory [facility] Start: 06-02-2024 End: 06-02-2024 ambulatory Ashley X Orzech [facility] Start: 06-02-2024 End: 06-02-2024 Lab Drop off Ashley X Orzech [facility] Start: 06-02-2024 End: 06-02-2024 ambulatory Ashley X Orzech Facility: [place] Start: 06-02-2024 End: 06-02-2024 Patient encounter procedure Ashley X Orcandich [facility] Start: 05-01-2024 End: 05-01-2024 ambulatory [facility] Start: 04-01-2024 ambulatory Ashley Tariq Facility: [place] Start: 02-19-2024 End: 02-19-2024 ambulatory [facility] Start: 11-21-2023 Non-patient / Non-visit MD Umesh Magana Work Phone: [facility] Work Phone: Start: 11-21-2023 End: 11-25-2023 Evaluation and management of inpatient MD Madison Magana Work Phone: [facility] [place] [facility] Work Phone: Start: 01-23-2023 End: 01-24-[address] MADISON MAGANA . Facility: Start: 08-13-2022 End: 08-13-[address] MADISON MAGANA . Facility: Start: 04-09-2022 End: 04-09-2022 ambulatory MYKE CANTU . Facility: Start: 05-10-2017 End: 05-11-2017 Ambulatory PROVIDER UNKNOWN Facility:[facility] Start: 05-07-2017 End: 05-08-2017 Ambulatory DEFAULT PHYSICIAN Facility:[facility] Procedures Date Procedure Procedure Detail [...] 03-31-2025 Protein [Mass/volume ] in Body fluid Esme Moore MD Work Phone: Start: 03-31-2025 AIRWAY [...] Radiologic exam ches t single view Dick Cuortney MD Work Phone: Start: 03-26-2025 Glucose quantitative [...] Александр Jarrett MD Work Phone: Start: 03-24-2025 [facility] Nabor joseph MD Work Phone: [...] 04-16-2026 Adult BMI Screening Adult BMI Screening [facility] Start: 04-07-2026 Creatinine measurement [facility] Start: 04-07-2026 Diabetes mellitus screening [facility] Start: 04-07-2026 Potassium measurement [facility] Start: 04-01-2026 Creatinine measurement Creatinine Level [facility] Start: 04-01-2026 Diabetes mellitus screening Diabetes Screening [facility] Start: 04-01-2026 Potassium measurement Potassium Level [facility] Start: 03-31-2026 Creatinine measurement Creatinine Level [facility] Start: 03-31-2026 Diabetes mellitus screening Diabetes Screening [facility] Start: 03-31-2026 Potassium measurement Potassium Level [facility] Start: 03-30-2026 Creatinine measurement Creatinine Level [facility] Start: 03-30-2026 Potassium measurement Potassium Level [facility] Start: 03-22-2026 Echocardiography Echocardiogram [facility] Start: 03-22-2026 [facility] Start: 10-26-2025 End: 10-26-2025 ambulatory [facility] Start: 05-10-2025 Influenza vaccination [facility] Start: 04-05-2025 End: 04-05-2025 Patient encounter procedure 04/05/2025 4:00 PM EDT Office Visit [facility] [address] [place] [address] [place] [address] [place] [address] [facility] Start: 04-01-2025 End: 04-01-2025 Patient encounter procedure [facility] Start: 01-07-2025 COVID-19 Vaccine (4 - Pfizer risk season) COVID-19 Vaccine (4 - Pfizer risk season) [facility] Start: 01-07-2025 [facility] Start: 11-25-2023 [facility] Start: 11-21-2023 Hospital admission [facility] Start: 11-21-2023 Referral to Recruitment Advertising Manager [facility] Start: 2022 RSV High Risk: (Elderly (60+) or Population) (1 - Risk 60-74 years 1-dose series) RSV High Risk: (Elderly (60+) or Population) (1 - Risk 60-74 years 1-dose series) [facility] Start: 2022 [facility] Start: 06-22-2021 Pneumococcal vaccination Pneumococcal Vaccine (2 of 2 - PCV) [facility] Start: 06-22-2021 [facility] Start: 2002 Screening for malignant neoplasm of breast [facility] Start: 1984 DTaP/Tdap/Td Vaccines (1 - Tdap) DTaP/Tdap/Td Vaccines (1 - Tdap) [facility] Start: 1984 [facility] Start: 1983 Screening for malignant neoplasm of cervix [facility] Start: 1981 Administration of varicella zoster vaccine Zoster (Shingles) Vaccine (1 of 2) [facility] Start: 1981 DTaP,Tdap and Td Vaccines (1 - Tdap) DTaP,Tdap and Td Vaccines (1 - Tdap) [facility] Start: 1981 Zoster Vaccines (1 of 2) Zoster Vaccines (1 of 2) [facility] Start: 1981 [facility] Start: 1980 Diabetic foot examination Diabetic Foot Exam [facility] Start: 1980 Hepatitis C screening [facility] Start: 1974 Depression Screening Depression Screening [facility] Start: 1974 Tobacco Screening Tobacco Screening [facility] Start: 1963 MMR Vaccines (1 of 1 - Standard series) MMR Vaccines (1 of 1 - Standard series) [facility] Start: 1963 [facility] Start: 1962 Bronchoscopy Bronchoscopy [facility] Start: 1962 Glaucoma screening Diabetic Ophthalmology Exam [facility] Start: 1962 HIV screening [facility] Start: 1962 Lipid panel [facility] Start: 1962 Medicare Annual Wellness Visit [facility] Start: 1962 Screening for malignant neoplasm of colon [facility] Start: 1962 Statin Use: Cardiovascular Statin Use: Cardiovascular [facility] Start: 1962 Statin Use: Diabetic Statin Use: Diabetic [facility] Start: 1962 [facility] CBC W Auto Different ial panel - Blood [facility] Work Phone: Electrocardiogram, 1 2-lead PRN ACS symptoms [facility] Service Area Work Phone: Electrocardiogram, 1 2-lead PRN ACS symptoms [facility] Work Phone: Glucose [Mass/volume ] in Serum or Plasma [facility] Work Phone: Magnesium [Mass/volu me] in Serum or Plasma [facility] Work Phone: Patient Education Atrial Fibrill ation (DC) Heart Failure, Adult (DC) Flu, Adult (DC) Going Home on Blood Thinners [facility] Work Phone: Patient referral [facility] Work Phone: End: 03-29-2025 Rad Onc Intent to Treat [facility] Work Phone: End: 03-31-2025 Rad Onc Intent to Treat [facility] Work Phone: Renal function 1999 panel - Serum or Plasma [facility] Work Phone: Renal function 1999 panel - Serum or Plasma [facility] Work Phone: End: 04-02-2025 Tempus Solid Tumor DNA/RNA (xT/xR, paired Germline testing optional) [facility] Work Phone: End: 04-02-2025 Tempus xT DNA and RNA Solid Tumor [facility] Work Phone: End: 03-24-2025 US Abdomen [facility] Work Phone: End: 04-10-2025 XR Chest Single view [facility] Work Phone: XR Chest Single view [facility] Work Phone: Immunizations Immunization Date Immunization Notes Care Provider Leif askew 07-10-2024 influenza virus vacc ine, unspecified formulation Benjy JOHNSON [facility] 06-06-2023 influenza virus vacc ine, unspecified formulation Ashley Orzech [facility] 03-28-2022 SARS-CoV-2 mRNA (gtmyhrhtyzm-qubr-xseobs e) vaccine Ashley Orzech [facility] 06-16-2021 influenza virus vacc ine, unspecified formulation Ashley Orzech [facility] 06-16-2021 SARS-CoV-2 (COVID-19 ) mRNA BNT-162b2 vax Ashley Orzech [facility] 12-08-2020 SARS-CoV-2 (COVID-19 ) mRNA BNT-162b2 vax Ashley Orzech [facility] 11-17-2020 SARS-CoV-2 (COVID-19 ) mRNA BNT-162b2 vax Ashley Orzech [facility] 06-22-2020 influenza virus vacc ine, unspecified formulation Ashley Orzech [facility] 06-22-2020 pneumococcal polysaccharide vaccine, 23 valent Ashley Orzech [facility] 07-31-2019 influenza virus vacc ine, unspecified formulation Ashley Orzech [facility] 07-28-2018 influenza virus vacc ine, unspecified formulation Ashley Orzech [facility] 06-21-2017 influenza, unspecifi ed formulation Ashley [employer] [facility] 05-08-2016 influenza virus vacc ine, unspecified formulation Ashley Orzech [facility] 06-08-2015 influenza virus vacc ine, unspecified formulation Ashley Orzech [facility] Payers Date Payer Category Payer Self-pay 2020 Medicare [id number] 2011 Medicare [id number] 1962 Unknown [id number] 2.16.84 [id number] 1962 Unknown [id number] 2.16.84 0.1.157218.3.579.2.593 1962 Unknown [id number] 2.16.84 0.1.066014.3.579.2.593 1962 Unknown [id number] 2.16.8 40.1.218232.3.579.2.727 1962 Unknown [id number] 2.16.8 40.1.466630.3.579.2.727 1962 Unknown [id number] 2.16.8 40.1.974812.3.579.2.727 1962 Unknown [id number] 2.16.8 40.1.504417.3.579.2.727 1962 Unknown [id number] 2.16.8 40.1.226768.3.579.2.727 1962 Unknown [id number] 2.16.8 40.1.405785.3.579.2.727 1962 Unknown [id number] 2.16.8 40.1.911259.3.579.2.727 1962 Unknown [id number] 2.16. 840.1.675159.3.579.2.1245 1962 Unknown [id number] 2.16. 840.1.971714.3.579.2.124 1962 Unknown [id number] 2.16. 840.1.483104.3.579.2.1245 1962 Unknown [id number] 2.16. 840.1.606720.3.579.2.1245 1962 Unknown [id number] 2.16. 840.1.151482.3.579.2.1245 1962 Unknown [id number] 2.16. 840.1.888009.3.579.2.1245 1962 Unknown [id number] 2.16. 840.1.581625.3.579.2.1245 1962 Unknown [id number] 2.16. 840.1.829823.3.579.2.1245 1959 Medicare [id number] Medicare [id number] Unknown Unknown O [id number] Unknown [id number] 2.16.8 [id number] Social History Date Type Detail Facility Start: 11-22-2023 End: 08-20-2024 Tobacco smoking status NHIS Ex-smoker (finding) [facility] Start: 1960 Sex Assigned At Female [facility] Start: 11-21-2023 Tobacco smoking status Never [facility] Start: 10-20-2020 End: 03-22-2025 Sex Assigned At Female [facility] Start: 09-17-2024 Tobacco smoking status Heavy t obacco smoker (finding) [facility] Start: 03-22-2025 Tobacco smoking stat NHIS Tobacco smoking consumption unknown [facility] Work Phone: Start: 03-24-2025 Alcoholic beverage intake Defer [facility] Work Phone: Start: 10-20-2020 End: 03-22-2025 History of Social function [facility] Work Phone: Within the last year , have you been afraid of your partner or ex-partner? No [facility] How hard is it for y ou to pay for the very basics like food, housing, medical care, and heating Not very hard [facility] (I/We) worried shellie er (my/our) food would run out before (I/we) got money to buy more. Never true [facility] Work Phone: Start: 1960 [facility]: Start: 03-31-2025 [facility] Start: 03-31-2025 Tobacco use and exposure Smokeless tobacco non-user [facility] Work Phone: Start: 03-31-2025 Alcoholic beverage intake Ex-drinker (finding) [facility] Work Phone: Start: 04-14-2015 Sex Female (finding) [employer] Medical Equipment Procedure Code Equipment Code Equipment Origin al Text Equipment Identifier Dates [id number] Start: 03-24-2025 Goals Date Patient Goal Desired Activity /State Functional Status Date Assessment Result Facility 03-22-2025 [facility] s everity rating scale screener - recent [C-SSRS] [facility] Work Phone: 03-22-2025 Total score [AUDIT-C] [facility] Work Phone: 03-22-2025 Patient Health Quest ionnaire 2 item (PHQ-2) [Reported] [facility] Work Phone: 09-17-2024 Functional Status No [facility] 08-20-2024 Functional Status N/A [facility] [place] 06-02-2024 Functional Status N/A [facility] [place] 11-25-2023 Functional status Patient at Baseline [facility] Work Phone: [facility] Work Phone: Mental Status Date Assessment Result Facility 11-25-2023 Cognitive function Cognitive Sta tus Patient at Baseline [facility] Work Phone: Clinical Notes 11-21-2023 to [...] : 1960 Date of Service: 04/21/2025 Facility: [facility] Type of Visit: Skilled Visit Subjective Melissa Dubose is a 64 y.o. female seen today at group home facility for skilled visit. Clara is still [...] unspecified part of right bronchus or lung ([facility]) 2. Chronic obstructive pulmonary disease, unspecified COPD type ([facility]) 3. Acute respiratory failure with hypoxia ([facility]) 4. Chronic heart failure, unspecified heart failure type ([facility]) 5. Muscle weakness (generalized) 6. Other fatigue 7. Unsteadiness on feet 8. Diabetic polyneuropathy associated with type 2 diabetes mellitus ([facility]) 9. Nausea and vomiting, unspecified vomiting type Continue with physical therapy to reach maximum improvement. Melissa will be discharging to home next week. She came [facility] in a very weakened condition following prolonged [...] Chet Longo DO documented in this encounter [facility] 04-16-2025 History of Present illness Narrative Patient Name: Melissa Dubose Date of : 1960 Date of Service: 04/16/2025 Facility: [facility] Type of Visit: Skilled Visit Subjective Melissa Dubose is a 64 y.o. female seen today at group home facility for problem visit. Staff reports low [...] Exam Vitals reviewed. Exam conducted with a beader tender present (Honorio Marsh MS3). Cardiovascular: Rate and [...] Chet Longo DO documented in this encounter [facility] 04-13-2025 History of Present illness Narrative Patient Name: Melissa Dubose Date of : 1960 Date of Service: 04/13/2025 Facility: [facility] Type of Visit: Skilled Visit Subjective Melissa Dubose is a 64 y.o. female seen today at group home facility for skilled visit. Melissa has [...] Exam Vitals reviewed. Exam conducted with a beader tender present (Honorio Marsh MS3). Constitutional: General: She [...] Chet Longo DO documented in this encounter [facility] [employer] 04-07-2025 History of Present illness Narrative Patient Name: Melissa Dubose Date of : 1960 Date of Service: 04/21/2025 Facility: [facility] Type of Visit: Admission H&P Subjective Melissa Dubose is a 64 y.o. female seen today at group home facility for admission H&P . Clara presents to [facility] for therapies following admission to [facility] for shortness of breath. She was found to be in respiratory failure due to pneumonia and a new lung mass which was found to be malignant. It was obstructing a bronchus so she was transferred to in [place]. She doesn't recall much of the events [...] Plan 1. Acute respiratory failure with hypoxia ([facility]) 2. Malignant neoplasm of unspecified part of right bronchus or lung ([facility]) 3. Chronic obstructive pulmonary disease, unspecified COPD type ([facility]) 4. Diabetic polyneuropathy associated with type 2 diabetes mellitus ([facility]) 5. Muscle weakness (generalized) 6. Chronic heart failure, unspecified heart failure type ([facility]) 7. Primary hypertension 8. Atrial fibrillation, unspecified type ([facility]) 9. Unsteadiness on feet 10. Atherosclerosis of [place] coronary artery of [place] heart without angina pectoris 11. Noninfectious gastroenteritis, unspecified type 12. Pneumothorax, unspecified type 13. Cigarette nicotine dependence with nicotine-induced disorder 14. Gastroesophageal reflux disease without esophagitis 15. Ischemic cardiomyopathy Admit to [facility] for therapies. She is planning to go home when she is physically able to. Continue medications from the hospital. Full code. F/U with oncology as directed. Fair to good rehab potential. ELECTRONICALLY SIGNED BY: Chet Longo DO documented in this encounter [employer] 04-07-2025 History of Present illness Narrative 03/31/25 [...] (Rehab/SNF/etc) Type of Post Acute Facility Services alf;Rehab Type of Home Care Services Home OT;Home [...] were you homeless or living in a penitentiary (including now)? N Transportation Needs In the past 12 months, has lack of transportation kept you from medical appointments or from getting medications? no In the past 12 months, has lack of transportation kept you from meetings, work, or from getting things needed for daily living? No Patient Choice Provider Choice list and [facility] website (https://medicare.gov/care-compare #search) for post-acute Quality [...] to discuss. SW will follow. Mariano Melvin [facility] 03/31/2025 1115 SW met with pt and father bedside to discuss AR. SW described the difference between AR and SNF and pt is amenable to whatever will get her up and moving again. There is an AR at [facility] in [place]. WES asked the care team to order a PM&R. Further discharge planning pending updates from the care team. SW will follow. Mariano Melvin [facility] 03/31/2025 1205 Per care team, pt is being evaluated for inpatient chemo by Thor[facility] Onc. [facility] is planning to see pt soon after discharge and may plan RT soon after that. WES requested that care team meet with pt to discuss before SW returns to room to discuss SNF rather than AR. SW will follow. Mariano Melvin [facility] 04/02/2025 1020 Per care team, no plans for chemo or RT. PM&R recs AR. Referral sent to [facility]. SW will follow. Mariano Melvin [facility] 04/02/2025 1500 Referral faxed to [facility] at [phone]. SW will follow. Mariano Melvin [facility] 04/05/2025 1050 SW called [facility] and spoke to Jenifer [phone] to follow up on referral. ALEX MD wants updated clinicals and PT/OT. SW requested new PT and OT notes via the whiteboard. SW will follow. Mariano Melvin [facility] 04/05/2025 1620 Updated clinicals, incl PT and OT, faxed to [facility]. SW will follow. Mariano Melvin [facility] 04/06/2025 0930 SW called and left a voicemail for Jenifer at [facility] for confirmation that she received the fax WES sent yesterday and to follow up on pt's acceptance to rehab. SW will follow. Mariano Melvin [facility] 04/06/2025 1000 SW received a phone call from Jenifer from [facility]; she reported that the ALEX MD does not believe pt can tolerate AR at this time. SW spoke to pt and let her know. After SW described SNF, she confirmed she is amenable. Care team updated. SW will follow. Mariano Melvin [facility] 04/06/2025 1310 Referral sent to pr preferences: [facility], [facility], [facility], [facility], and [facility] Pt was accepted to [facility]. Facility wanted [...] team updated. SW will follow. Mariano Melvin [facility] 04/06/2025 1545 Transport requested for pt to discharge to [facility] but no transport company could accept the ride due to the distance to the facility. Transport confirmed for 04/07 at 1200 with [facility]. Pt, care team, and facility notified. SW will follow. Mariano Melvin [facility] 04/07/2025 1150 Discharge charge order is now in. AVS and goldenrod sent to SNF [facility]. [id number] submitted in HENS; facility notified. Once received, number for report will be sent to bedside nurse. SW will follow. [facility] 04/07/2025 1210 Per SNF: Number for report is [phone] ext [phone] and patient is going to room 103 Details sent to bedside nurse via secure chat. SW will follow. Mariano Melvin [facility] WORKDAY SENIOR ASSOCIATE Care Transitions Note: 04/06/25 Social work following to assist with discharge planning. Pt recommended for SNF. Choice list provided and pt selected the following in order of preference: [facility], [facility], [facility], [facility]. Referrals sent via careport. Will advise of accepting SNF's when known. Linda KEATING Care Transitions [employer] 03/31/25 1000 Discharge Planning Living Arrangements Children [...] (Rehab/SNF/etc) Type of Post Acute Facility Services alf;Rehab Type of Home Care Services Home OT;Home [...] were you homeless or living in a penitentiary (including now)? N Transportation Needs In the [...] to discuss. SW will follow. Mariano Melvin [facility] 03/31/2025 1115 SW met with pt and father bedside to discuss AR. SW described the difference between AR and SNF and pt is amenable to whatever will get her up and moving again. There is an AR at [facility] in [place]. WES asked the care team to order a PM&R. Further discharge planning pending updates from the care team. SW will follow. Mariano [facility]vin [facility] [facility] 03/31/2025 1205 Per care team, pt is being evaluated for inpatient chemo by Thoracic Onc. [facility] is planning to see pt soon after discharge and may plan RT soon after that. WES requested that care team meet with pt to discuss before SW returns to room to discuss SNF rather than AR. SW will follow. Mariano Melvin [facility] 04/02/2025 1020 Per care team, no plans for chemo or RT. PM&R recs AR. Referral sent to [facility] AR. SW will follow. Mariano Melvin [facility] 04/02/2025 1500 Referral faxed to [facility] at [phone]. SW will follow. Mariano Melvin [facility] 04/05/2025 1050 SW called [facility] and spoke to Jenifer [phone] to follow up on referral. ALEX MD wants updated clinicals and PT/OT. WES requested new PT and OT notes via the whiteboard. SW will follow. Mariano Melvin [facility] 04/05/2025 1620 Updated clinicals, incl PT and OT, faxed to [facility]. SW will follow. Mariano Nails Melvin [facility] 04/06/2025 0930 WES called and left a voicemail for Jenifer at [facility] for confirmation that she received the fax WES sent yesterday and to follow up on pt's acceptance to rehab. SW will follow. Mariano Nails Olegario [facility] 04/06/2025 1000 SW received a phone call from Jenifer from [facility]; she reported that the ALEX MD does not believe pt can tolerate AR at this time. WES spoke to pt and let her know. After SW described SNF, she confirmed she is amenable. Care team updated. SW will follow. Mariano Melvin [facility] 04/06/2025 1310 Referral sent to pr preferences: [facility], [facility], [facility], [facility], and [facility]. Pt was accepted to [facility] [...] team updated. SW will follow. Mariano Melvin [facility] 04/06/2025 1545 Transport requested for pt to discharge to SNF [facility] but no transport company could accept the ride due to the distance to the facility. Transport confirmed for 04/07 at 1200 with [facility]. Pt, care team, and facility notified. SW will follow. Mariano Melvin [facility] WORKDAY SENIOR ASSOCIATE Melissa Dubose is a 64 y.o. female [...] requiring mechanical ventilation. She originally presented to [facility] 03/21 for 1 week of progressive SOB [...] NSCLC favoring adenocarcinoma. Currently being managed by [facility] oncology for acute hypoxic resp failure and NSCLC favoring adenocarcinoma since 03/28/2025 Updates 04/06/2025 Touch base with vp digital marketing social media and crm for discharge to nursing facility. She is not a candidate for rehab Daily AM CXR while inpatient to monitor PTX; CXR today showing stable size of PTX on initial review If patient acutely decompensates, can transfer for urgent chest tube Otherwise, plan for follow up with pulmonary for bronchoscopy in 3-4 weeks for evaluation of stent removal OP thoracic onc at [facility] (Dr. Escobedo staff working on scheduling appt) OP rad onc at [facility] w/ Dr. Arroyo - will fax notes [...] outpatient thoracic onc follow up (pt prefers [facility]) Supportive onc recs 03/30: start acetaminophen 975mg [...] Therapy Treatment Patient Name: Melissa Dubose Department: [facility] Room: [address] [place] [address] Today's Date: 04/05/2025 Time Calculation Start Time: [...] for sequencing Stairs Stairs: No Outcome Measures: [facility] Basic Mobility Turning from your back [...] start of session, Alarm off, caregiver present (PUMP SERVICER SUPERVISOR present) Plan: Treatment Interventions: ADL retraining, Endurance [...] - cues for follow through Outcome Measures: [facility] Daily Activity Putting on and taking [...] Training, taught by Saad Antunez OT at 04/05/2025 [...] 04/05/25 at 3:45 PM Saad Antunez OT [phone] Progress note Melissa Dubose is a 64 [...] requiring mechanical ventilation. She originally presented to [facility] 03/21 for 1 week of progressive SOB [...] NSCLC favoring adenocarcinoma. Currently being managed by [facility] oncology for acute hypoxic resp failure and NSCLC favoring adenocarcinoma since 03/28/2025. Updates 04/05/2025 Touch base with vp digital marketing social media and crm for discharge to rehab Daily AM CXR while inpatient to monitor PTX; CXR today showing stable size of PTX on initial review If patient acutely decompensates, can transfer for urgent chest tube Otherwise, plan for follow up with pulmonary for bronchoscopy in 3-4 weeks for evaluation of stent removal OP thoracic onc at [facility] (Dr. Escobedo staff working on scheduling appt) OP rad onc at [facility] w/ Dr. Arroyo - will fax notes [...] outpatient thoracic onc follow up (pt prefers [facility]) Supportive onc recs 03/30: start acetaminophen 975mg [...] and family together Spiritual Care Annotation Annotation: Produce Weigher introduced self and role to patient Melissa Dubose and her father. They welcomed visit from facility Nohemi natarajan. Hand warble saw operator provided before and after visit. Patient expressed [...] available as needed/requested. Rev. Carmencita Martinez, iv, [facility] 03/31/25 1000 Discharge Planning Living Arrangements Children [...] (Rehab/SNF/etc) Type of Post Acute Facility Services alf;Rehab Type of Home Care Services Home OT;Home [...] were you homeless or living in a penitentiary (including now)? N Transportation Needs In the [...] to discuss. SW will follow. Mariano Melvin [facility] 03/31/2025 1115 SW met with pt and father bedside to discuss AR. SW described the difference between AR and SNF and pt is amenable to whatever will get her up and moving again. There is an AR at [facility] in [place]. WES asked the care team to order a PM&R. Further discharge planning pending updates from the care team. SW will follow. Mariano Melvin [facility] 03/31/2025 1205 Per care team, pt is being evaluated for inpatient chemo by Thoracic Onc. [facility] is planning to see pt soon after discharge and may plan RT soon after that. WES requested that care team meet with pt to discuss before SW returns to room to discuss SNF rather than AR. SW will follow. Mariano Melvin [facility] 04/02/2025 1020 Per care team, no plans for chemo or RT. PM&R recs AR. Referral sent to [facility]. WES will follow. Mariano Melvin [facility] 04/02/2025 1500 Referral faxed to [facility] at [phone]. WES will follow. Mariano Melvin [facility] 04/05/2025 1050 WES called [facility] and spoke to Jenifer [phone] to follow up on referral. ALEX HO wants updated clinicals and PT/OT. WES requested new PT and OT notes via the whiteboard. SW will follow. Mariano Melvin [facility] 04/05/2025 1620 Updated clinicals, incl PT and OT, faxed to [facility]. SW will follow. Mariano Melvin [facility] WORKDAY SENIOR ASSOCIATE Melissa Dubose is a 64 y.o. female [...] 04/02/2025 and PET-CT dated 04/01/2025 ACCESSION NUMBER(S): [id number] ORDERING CLINICIAN: LISSETTE MAHARAJ FINDINGS: Status post [...] Julia Ng 04/03/2025 9:33 AM Dictation workstation: [id number] PHYSICAL EXAM Physical Exam Vitals and nursing [...] requiring mechanical ventilation. She originally presented to [facility] 03/21 for 1 week of progressive SOB [...] NSCLC favoring adenocarcinoma. Currently being managed by [facility] oncology for acute hypoxic resp failure and [...] attempt TOV today OP thoracic onc at [facility] (Dr. Escobedo staff working on scheduling appt) OP rad onc at [facility] w/ Dr. Arroyo - will fax notes [...] outpatient thoracic onc follow up (pt prefers [facility]) Supportive onc recs 03/30: start acetaminophen 975mg [...] 04/02/2025 and PET-CT dated 04/01/2025 ACCESSION NUMBER(S): [id number] ORDERING CLINICIAN: LISSETTE MAHARAJ FINDINGS: Status post [...] Julia Ng 04/03/2025 9:33 AM Dictation workstation: [id number] PHYSICAL EXAM Relevant Results Assessment & Plan Ms. 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 She originally presented to [facility] 03/21 for 1 week of progressive SOB [...] NSCLC favoring adenocarcinoma. Currently being managed by [facility] oncology for acute hypoxic resp failure and [...] plaza removal/TOV tomorrow OP thoracic onc at [facility] (Dr. Escobedo staff working on scheduling appt) OP rad onc at [facility] w/ Dr. Arroyo - will fax notes [...] outpatient thoracic onc follow up (pt prefers [facility]) Supportive onc recs 03/30: start acetaminophen 975mg [...] Therapy Treatment Patient Name: Melissa Dubose Department: [facility] Room: [address] [place] [address] Today's Date: 04/02/2025 Time Calculation Start Time: [...] safe hand placement and sequencing Outcome Measures: [facility] Basic Mobility Turning from your back [...] Melissa Dubose : 1960 Date: 04/02/25 Room: [address] [place] [address]- Time Calculation Start Time: 1335 Stop Time: [...] completion however vitals remain appropriate. Outcome Measures: [facility] Daily Activity Putting on and taking [...] 04/02/25 at 2:51 PM Saad Antunez OT [phone] 03/31/25 1000 Discharge Planning Living Arrangements Children [...] (Rehab/SNF/etc) Type of Post Acute Facility Services alf;Rehab Type of Home Care Services Home OT;Home [...] were you homeless or living in a penitentiary (including now)? N Transportation Needs In the [...] to discuss. SW will follow. Mariano Melvin [facility] 03/31/2025 1115 SW met with pt and father bedside to discuss AR. SW described the difference between AR and SNF and pt is amenable to whatever will get her up and moving again. There is an AR at [facility] in [place]. SW asked the care team to order a PM&R. Further discharge planning pending updates from the care team. SW will follow. Mariano Melvin [facility] 03/31/2025 1205 Per care team, pt is being evaluated for inpatient chemo by Thoracic Onc. [facility] is planning to see pt soon after discharge and may plan RT soon after that. WES requested that care team meet with pt to discuss before SW returns to room to discuss SNF rather than AR. SW will follow. Mariano Melvin [facility] 04/02/2025 1020 Per care team, no plans for chemo or RT. PM&R recs AR. Referral sent to [facility]. SW will follow. Mariano Melvin [facility] 04/02/2025 1500 Referral faxed to [facility] at [phone]. SW will follow. Mariano Melvin [facility] Images from the original note were not included. [facility] ONCOL[facility]Y PROGRESS NOTE Summary Statement Ms. Melissa [...] 03/24 in AM showed RBBB and c/f NE. Repeat EKG showed RBBB and no ST [...] L NC on 03/28 and transferred to [facility] oncology for management of new NSCLC and [...] 03/31/2025. COMPARISON: CT chest/abdomen/pelvis 03/28/2025. ACCESSION NUMBER(S): [id number] ORDERING CLINICIAN: SHANTANU GILLILAND TECHNIQUE: DIVISION OF [...] CODING: Initial Treatment Strategy (PI) CALIBRATION: Dose Qvixwtibx-hh-Nogg Interval (mins): 63 min Mediastinal bloodpool SUV [...] Cinthia Ugalde 04/02/2025 6:00 AM Dictation workstation: [id number] US thoracentesis Result Date: 04/01/2025 Interpreted By: Chuck Cobos, STUDY: US THORACENTESIS; 54:25 pm INDICATION: Signs/Symptoms:Thoracentesis of known Right moderate pleural effusion likely malignant from suspected NSCLC; currently on NC (new). B/l pleural effusions on CXR. COMPARISON: None. ACCESSION NUMBER(S): [id number] ORDERING CLINICIAN: LISSETTE MAHARAJ TECHNIQUE: INTERVENTIONALIST(S): Chuck [...] a right-sided thoracentesis was performed. A 5 [place]ar[place]uan One-Step Valved thoracentesis needle/catheter was then placed [...] the entire procedure. Performed and dictated at [facility]. Signed by: Chuck Cobos 04/01/2025 4:25 PM Dictation workstation: [id number] XR chest 1 view Result Date: 04/01/2025 Interpreted By: Julia Duncan, STUDY: XR CHEST 1 VIEW; 03/31/2025 6:14 pm INDICATION: Signs/Symptoms:Post thoracentesis eval PTX. COMPARISON: Radiograph dated 03/31/2025 ACCESSION NUMBER(S): [id number] ORDERING CLINICIAN: SHANTANU GILLILAND FINDINGS: Status post [...] Julia Ng 04/01/2025 8:08 AM Dictation workstation: [id number] XR chest 1 view Result Date: 03/31/2025 Interpreted By: Con Dougherty, STUDY: XR CHEST 1 VIEW; 03/31/2025 3:15 pm INDICATION: Signs/Symptoms:Post thora. COMPARISON: 03/30/2025. ACCESSION NUMBER(S): [id number] ORDERING CLINICIAN: SHANTANU GILLILAND Large right superior [...] Con Dougherty 03/31/2025 3:33 PM Dictation workstation: [id number] Assessment/Plan Ms. 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 She originally presented to [facility] 03/21 for 1 week of progressive SOB [...] NSCLC favoring adenocarcinoma. Currently being managed by [facility] oncology for acute hypoxic resp failure and NSCLC favoring adenocarcinoma. Updates 04/02/25: Daily AM CXR to monitor PTX Repeat CXR today 04/02 showing stable size of PTX NGS ordered for outpatient treatment planning PET-CT 03/31 showing redemonstrated R hilar mass and possible metastases in lymph nodes, subcutaneous tissues, R humerus, and L adrenal gland Emailed Dr. Escobedo at [facility] regarding tx planning, scheduling follow up R [...] outpatient thoracic onc follow up (pt prefers [facility]) Supportive onc recs 03/30: start acetaminophen 975mg [...] Relation: Father Secondary Emergency Contact Preferred language [place] Island[place] Charge Entry Specialist needed? No DISPO Acute rehab Esme Moore [...] 2/2 ischemic cardiomyopathy. She originally presented to [facility] on 03/21/25 for SOB and hypoxia. She was intubated and transferred to [facility] on 03/22/2025 for further evaluation and [...] medications to patient prior to discharge via [facility] pharmacy. Prescriptions will need to be sent 48-72 hours prior to discharge so that a prior authorization can be completed. Discharge date pending resolution of acute hospital issues. Pt does not currently qualify for an appointment with outpatient Supportive Oncology. SIGNATURE: BERNADETTE Claudio PAGER/CONTACT: Contact information: [facility] Saturday-Saturday 8 AM-5 PM ZYB Secure chat or pager [phone]. After hours and weekends: pager [phone] SUBJECTIVE: Pain Assessment: Location: R chest, mid-low back Duration: Intermittent Characteristics: Rating: R chest/mid-low back: Mild Descriptors: Aching, sore, tight Aggravating: Movement, deep breathing Relieving: None, states recent pain medications only helped slightly Interference with Function: A little Opioid Requirements Past 24h opioid requirements: (03/31-04/01, [id number]) oxycodone IR 5mg x 3 = 15mg [...] due to disease process Joys/meaning/strength: Family and [place] Understanding of health: Demonstrates some understanding of disease process, did not readily share what has been discussed Code status discussion: Discussed previously and Full code Advance Directives Existence of Advance Directives: None Decision maker: Estefani Pierce CNP, having previously discussed [place] hierarchy of legal next of kin and explained that typically adult children are surrogate decision makers. At that time pt stating that she would like her father, Ben, to be her surrogate decision maker while she thinks about completing [facility] paperwork. Signature and billing: Medical complexity was [...] of shared electronic medical record/secure chat/email or [id number]. We will continue to follow. Please contact us for additional questions or concerns. SIGNATURE: BERNADETTE Claudio PAGER/CONTACT: Contact information: [facility] Saturday-Saturday 8 AM-5 PM, ZYB Secure chat or pager [phone]. After hours and weekends: pager [phone] [1] albuterol, 2.5 mg, nebulization, TID [Held [...] Daily tiZANidine, 4 mg, oral, Nightly [2] [facility] ONCOLOGY PROGRESS NOTE Summary Statement Ms. Melissa [...] 03/24 in AM showed RBBB and c/f NE. Repeat EKG showed RBBB and no ST [...] L NC on 03/28 and transferred to [facility] oncology for management of new NSCLC and [...] effusions on CXR. COMPARISON: None. ACCESSION NUMBER(S): [id number] ORDERING CLINICIAN: LISSETTE MAHARAJ TECHNIQUE: INTERVENTIONALIST(S): Chuck [...] a right-sided thoracentesis was performed. A 5 Nicaraguan One-Step Valved thoracentesis needle/catheter was then placed [...] the entire procedure. Performed and dictated at [facility]. Signed by: Chuck Cobos 04/01/2025 4:25 PM Dictation workstation: [id number] NM PET [address] whole body Result Date: 04/01/2025 Interpreted By: Rolo Pickering, STUDY: NM PET CT WHOLE BODY; 04/01/2025 9:08 am INDICATION: Signs/Symptoms:new lung mass NSCLC favoring adenocarcinoma, planning for radiation and chemo. 64-year-old female with biopsy of mediastinal mass with pathology favoring adenocarcinoma with radiation initiation 03/31/2025. COMPARISON: CT chest/abdomen/pelvis 03/28/2025. ACCESSION NUMBER(S): [id number] ORDERING CLINICIAN: SHANTANU GILLILAND TECHNIQUE: DIVISION OF [...] CODING: Initial Treatment Strategy (PI) CALIBRATION: Dose Qftemyarq-qy-Pznq Interval (mins): 63 min Mediastinal bloodpool SUV [...] Dr. Rolo Pickering. MACRO: None. Dictation workstation: [id number] XR chest 1 view Result Date: 04/01/2025 Interpreted By: Julai Duncan, STUDY: XR CHEST 1 VIEW; 03/31/2025 6:14 pm INDICATION: Signs/Symptoms:Post thoracentesis eval PTX. COMPARISON: Radiograph dated 03/31/2025 ACCESSION NUMBER(S): [id number] ORDERING CLINICIAN: SHANTANU GILLILAND FINDINGS: Status post [...] Julia Ng 04/01/2025 8:08 AM Dictation workstation: [id number] XR chest 1 view Result Date: 03/31/2025 Interpreted By: Con Dougherty, STUDY: XR CHEST 1 VIEW; 03/31/2025 3:15 pm INDICATION: Signs/Symptoms:Post thora. COMPARISON: 03/30/2025. ACCESSION NUMBER(S): [id number] ORDERING CLINICIAN: SHANTANU GILLILAND Large right superior [...] Con Dougherty 03/31/2025 3:33 PM Dictation workstation: [id number] Assessment/Plan Ms. 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 She originally presented to [facility] 03/21 for 1 week of progressive SOB [...] NSCLC favoring adenocarcinoma. Currently being managed by [facility] oncology for acute hypoxic resp failure and [...] outpatient thoracic onc follow up (pt prefers [facility]) Supportive onc recs 03/30: start acetaminophen 975mg [...] Relation: Father Secondary Emergency Contact Preferred language [place] Islander Charge Entry Specialist needed? No DISPO Acute rehab Esme Moore [...] Communication Note Patient Name: Melissa Dubose Department: [address] Room: [address] [place] [address] Today's Date: 04/01/2025 Discipline: Physical Therapy Missed Visit: PT Missed Visit: Yes Missed Visit Reason: Missed Visit Reason: Other (Comment) (Pt off the floor) Missed Time: 08:42 AM Nutrition Follow Up Assessment: Nutrition Assessment Patient is a 64 y.o. female admitted for acute hypoxic respiratory failure requiring mechanical ventilation. Patient weaned to 5 L NC on 03/28 and transferred to [facility] oncology for management of new NSCLC and [...] feeds 03/26 (?) Failed swallow eval with GAS TURBINE ASSEMBLER 03/27, reassessment 03/29 GAS TURBINE ASSEMBLER recs for Regular Solids & Thin Liquids [...] 2280 kCal Method for Estimating Needs: MSJ (1540) x 1.3 using admit weight of 111kg [...] Communication Note Patient Name: Melissa Dubose Department: [facility] Room: [address] [place] [address] Today's Date: 03/31/2025 Discipline: Physical Therapy Missed [...] (Rehab/SNF/etc) Type of Post Acute Facility Services alf;Rehab Type of Home Care Services Home OT;Home [...] were you homeless or living in a penitentiary (including now)? N Transportation Needs In the past 12 months, has lack of transportation kept you from medical appointments or from getting medications? no In the past 12 months, has lack of transportation kept you from meetings, work, or from getting things needed for daily living? No Patient Choice Provider Choice list and [facility] website (https://medicare.gov/care-compare #search) for post-acute Quality [...] to discuss. WES will follow. Mariano Melvin [facility] 03/31/2025 1115 SW met with pt and father bedside to discuss AR. WES described the difference between AR and SNF and pt is amenable to whatever will get her up and moving again. There is an AR at [facility] in [place]. WES asked the care team to order a PM&R. Further discharge planning pending updates from the care team. WES will follow. Mariano Melvin [facility] 03/31/2025 1205 Per care team, pt is being evaluated for inpatient chemo by Thoracic Onc. [facility] is planning to see pt soon after discharge and may plan RT soon after that. WES requested that care team meet with pt to discuss before SW returns to room to discuss SNF rather than AR. SW will follow. Mariano Melvin [facility] WORKDAY SENIOR ASSOCIATE [facility] ONCOLOGY PROGRESS NOTE Summary Statement Ms. Melissa [...] 03/24 in AM showed RBBB and c/f NE. Repeat EKG showed RBBB and no ST [...] L NC on 03/28 and transferred to [facility] oncology for management of new NSCLC and [...] radiograph 03/28/2025, CT chest 03/28/2025 ACCESSION NUMBER(S): [id number] ORDERING CLINICIAN: LISSETTE MAHARAJ FINDINGS: AP radiograph [...] Oneal MD. This study was interpreted at [facility], [place], [place]. MACRO: None Signed by: Con Dougehrty 03/30/2025 2:09 PM Dictation workstation: [id number] Electrocardiogram, 12-lead PRN ACS symptoms Result Date: [...] mass. COMPARISON: CT head 03/21/2025. ACCESSION NUMBER(S): [id number] ORDERING CLINICIAN: BETH HAYDEN TECHNIQUE: Multiplanar, multi-sequence [...] Lupe Green 03/29/2025 10:06 AM Dictation workstation: [id number] Assessment/Plan Ms. 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 She originally presented to [facility] 03/21 for 1 week of progressive SOB [...] NSCLC favoring adenocarcinoma. Currently being managed by [facility] oncology for acute hypoxic resp failure and [...] outpatient thoracic onc follow up (pt prefers [facility]) Supportive onc recs 03/30: start acetaminophen 975mg [...] Relation: Father Secondary Emergency Contact Preferred language [place] Island[place] Charge Entry Specialist needed? No DISPO Pending Esme Moore MD [...] consulted. Will need plan from thoracic oncology [facility] PROGRESS NOTE Summary Statement Ms. Melissa [...] 03/24 in AM showed RBBB and c/f NE. Repeat EKG showed RBBB and no ST [...] L NC on 03/28 and transferred to [facility] oncology for management of new NSCLC and [...] radiograph 03/28/2025, CT chest 03/28/2025 ACCESSION NUMBER(S): [id number] ORDERING CLINICIAN: LISSETTE MAHARAJ FINDINGS: AP radiograph [...] Oneal MD. This study was interpreted at [place], [place]. MACRO: None Signed by: Con Dougherty 03/30/2025 2:09 PM Dictation workstation: [id number] Electrocardiogram, 12-lead PRN ACS symptoms Result Date: [...] mass. COMPARISON: CT head 03/21/2025. ACCESSION NUMBER(S): [id number] ORDERING CLINICIAN: BETH HAYDEN TECHNIQUE: Multiplanar, multi-sequence [...] Lupe Green 03/29/2025 10:06 AM Dictation workstation: [id number] Assessment/Plan Ms. 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 She originally presented to [facility] 03/21 for 1 week of progressive SOB [...] report of NSCLC. Currently being managed by [facility] oncology for acute hypoxic resp failure and [...] Relation: Father Secondary Emergency Contact Preferred language [place] Charge Entry Specialist needed? No DISPO Pending Esme Moore MD [...] Name: Melissa Dubose Today's Date: 03/30/2025 Room: [address] [place], [place] [address]A Time Calculation Start Time: 1217 Stop Time: [...] seat without rails Prior Function: Level of [place]: Independent with ADLs and functional transfers, Independent with homemaking with ambulation ADL Assistance: Independent Homemaking Assistance: Independent Ambulatory Assistance: Independent Vocational: Unemployed Hand Dominance: Right Prior Function Comments: - falls IADL History: Homemaking Responsibilities: Yes Meal Prep Responsibility: Primary Laundry Responsibility: Primary Cleaning Responsibility: Primary Bill Paying/Finance Responsibility: Primary Shopping Responsibility: Primary Pipe Out Worker Responsibility: Primary Homemaking Comments: Some assistance [...] Bill Paying/Finance Responsibility: Primary Shopping Responsibility: Primary Pipe Out Worker Responsibility: Primary Homemaking Comments: Some assistance [...] WFL (grossly 4+/5), , and Outcome Measures: [facility] Daily Activity Putting on and taking [...] 2:47 PM Saad Antunez OT Rehab Office: [phone] Physical Therapy Physical Therapy Evaluation & Treatment Patient Name: Melissa Dubose Department: [facility] Room: 5010/5010-A Today's Date: 03/30/2025 Time [...] Prior Function Per Pt/Caregiver Report Level of [place]: Independent with ADLs and functional transfers, Independent [...] breathing, & trunk balance/ stability. Outcome Measures: [facility] Basic Mobility Turning from your back [...] were you homeless or living in a penitentiary (including now)? N Transportation Needs In the past 12 months, has lack of transportation kept you from medical appointments or from getting medications? no In the past 12 months, has lack of transportation kept you from meetings, work, or from getting things needed for daily living? No Patient Choice Provider Choice list and [facility] website (https://medicare.gov/care-compare #search) for post-acute Quality [...] Primary Oncologist: Madison Magana MD Preferred Pharmacy: [facility] [address] [facility] [address] Preferred home care agency: none Met with [...] mass. COMPARISON: CT head 03/21/2025. ACCESSION NUMBER(S): [id number] ORDERING CLINICIAN: BETH HAYDEN TECHNIQUE: Multiplanar, multi-sequence [...] Lupe Green 03/29/2025 10:06 AM Dictation workstation: [id number] Physical Exam General: awake, alert, resting comfortably, [...] -Follow up referral to Dr. Arroyo at [facility] for additional RT considerations I spent 25 [...] 2/2 ischemic cardiomyopathy. She originally presented to [facility] on 03/21/25 for SOB and hypoxia. She was intubated and transferred to [facility] on 03/22/2025 for further evaluation and [...] medications to patient prior to discharge via [facility] pharmacy. Prescriptions will need to be sent 48-72 hours prior to discharge so that a prior authorization can be completed. Discharge date pending resolution of acute hospital issues. Pt does not currently qualify for an appointment with outpatient [facility]. SIGNATURE: BERNADETTE Claudio PAGER/CONTACT: Contact information: [facility] Saturday-Saturday 8 AM-5 PM ZYB Secure chat or pager [phone]. After hours and weekends: pager [phone] SUBJECTIVE: Pain Assessment: Location: R chest, mid-low back, intermittent frontal headaches Duration: Intermittent Characteristics: Rating: R chest: 3/10, mid-low back: mild, frontal headaches: 0/10 Descriptors: Aching, sore, tight Aggravating: Movement, deep breathing Relieving: None, states recent pain medications only helped slightly Interference with Function: Somewhat Opioid Requirements Past 24h opioid requirements: (03/29-03/30, 0345-9041) None Total 24h OME use: 0 OME [...] due to disease process Joys/meaning/strength: Family and [place] Understanding of health: Demonstrates some understanding of disease process, did not readily share what has been discussed Code status discussion: Discussed previously and Full code Advance Directives Existence of Advance Directives: None Decision maker: Estefani Pierce CNP, having previously discussed [place] hierarchy of legal next of kin and explained that typically adult children are surrogate decision makers. At that time pt stating that she would like her father, Ben, to be her surrogate decision maker while she thinks about completing [facility] paperwork. Signature and billing: Medical complexity was [...] of shared electronic medical record/secure chat/email or [id number]. We will continue to follow. Please contact us for additional questions or concerns. SIGNATURE: BERNADETTE Claudio PAGER/CONTACT: Contact information: [facility] Saturday-Saturday 8 AM-5 PM, ZYB Secure chat or pager [phone]. After hours and weekends: pager [phone] [1] albuterol, 2.5 mg, nebulization, TID apixaban, [...] TID spironolactone, 12.5 mg, oral, Daily [2] [facility] PROGRESS NOTE Summary Statement Ms. Melissa [...] 03/24 in AM showed RBBB and c/f NE. Repeat EKG showed RBBB and no ST [...] L NC on 03/28 and transferred to [facility] oncology for management of new NSCLC and [...] 392 ms QTC Calculation(Bazett) 490 ms R Piedmont 112 degrees T Piedmont 105 degrees QRS Count 15 beats Q [...] mass. COMPARISON: CT head 03/21/2025. ACCESSION NUMBER(S): [id number] ORDERING CLINICIAN: BETH HAYDEN TECHNIQUE: Multiplanar, multi-sequence [...] Lupe Green 03/29/2025 10:06 AM Dictation workstation: [id number] CT chest abdomen pelvis w IV contrast Result Date: 03/28/2025 Interpreted By: Francis Ratliff, STUDY: CT CHEST ABDOMEN PELVIS W IV CONTRAST; 03/28/2025 12:12 pm INDICATION: Signs/Symptoms:IV Staging. COMPARISON: Outside chest CT 03/21/2025. ACCESSION NUMBER(S): [id number] ORDERING CLINICIAN: NUNO GUILLEN TECHNIQUE: CT of [...] Francis Ratliff 03/28/2025 6:51 PM Dictation workstation: [id number] XR chest 1 view Result Date: 03/28/2025 Interpreted By: Shantanu Hui, STUDY: XR CHEST 1 VIEW; 03/28/2025 8:39 am INDICATION: Signs/Symptoms:weaning airvo, assesss pneumonia. COMPARISON: Chest radiograph 03/26/[address] 03/21/2025. ACCESSION NUMBER(S): [id number] ORDERING CLINICIAN: NUNO GUILLEN FINDINGS: AP radiograph [...] Shantanu Hui 03/28/2025 9:48 AM Dictation workstation: [id number] Assessment/Plan Ms. Melissa Dubose is a 64 yo female with PMHx of of CAD s/p CABG in 2015, COPD, HTN, afib, T2DM, ICM HFimpEF (11/2024 TTE EF 50-55%) on hospital day 7 admitted for acute hypoxic respiratory failure requiring mechanical ventilation. She originally presented to [facility] 03/21 for 1 week of progressive SOB [...] report of NSCLC. Currently being managed by [facility] oncology for acute hypoxic resp failure and [...] Relation: Father Secondary Emergency Contact Preferred language [place] Charge Entry Specialist needed? No DISPO Pending Esme Moore MD [...] commands and responded appropriately to conversation/questions by GAS TURBINE ASSEMBLER. Adequate volitional cough prior to administration of [...] followed during all oral intake. No further GAS TURBINE ASSEMBLER services indicated; will sign off/complete order. If pt presents with any changes to mental, medical, or respiratory status, please make NPO and alert GAS TURBINE ASSEMBLER. RN/MD aware. Recommendations: Regular Solids & Thin Liquids Upright for all PO intake Remain upright for 20-30 min after eating Small bites/sips Straws ok Slow rate of consumption Pills per pt preference GAS TURBINE ASSEMBLER to sign off If pt presents with any changes to mental, medical, or respiratory status, please make NPO and alert GAS TURBINE ASSEMBLER Goal: Pt/caregiver/family will demonstrate adequate return of [...] End Date: 03/29/2025 Status: Goal Met Plan: GAS TURBINE ASSEMBLER Services Indicated: No Discussed POC with patient and spouse GAS TURBINE ASSEMBLER - OK to Discharge Pain: 0-10 0 [...] re-attempt as pt available/appropriate and schedule permits. [facility] PROGRESS NOTE Summary Statement Ms. Melissa [...] 03/24 in AM showed RBBB and c/f NE. Repeat EKG showed RBBB and no ST [...] L NC on 03/28 and transferred to [facility] oncology for management of new NSCLC and [...] 03/26/[address] 03/21/2025. ACCESSION NUMBER(S): [id number] ORDERING CLINICIAN: NUNO GUILLEN FINDINGS: AP radiograph [...] Shantanu Hui 03/28/2025 9:48 AM Dictation workstation: [id number] Assessment/Plan Ms. Melissa Dubose is a 64 yo female with PMHx of of CAD s/p CABG in 2016, COPD, HTN, afib, T2DM, ICM HFimpEF (11/2024 TTE EF 50-55%) on hospital day 6 admitted for acute hypoxic respiratory failure requiring mechanical ventilation. She originally presented to [facility] 03/21 for 1 week of progressive SOB [...] report of NSCLC. Currently being managed by [facility] oncology for acute hypoxic resp failure and [...] Relation: Father Secondary Emergency Contact Preferred language [place] Charge Entry Specialist needed? No DISPO Pending Esme Moore MD [...] requiring mechanical ventilation. She originally presented to [facility] 03/21 for 1 week of progressive shortness [...] with transfer center, accepted for transfer to [facility] initiated for interventional pulmonology evaluation. Prior to [...] commands and responded appropriately to questions by GAS TURBINE ASSEMBLER though w/ delayed response time. Denies any [...] prevent buildup of bacteria within the oropharynx. GAS TURBINE ASSEMBLER will continue to follow w/ swallow re-assessment as pt demonstrates improvement in respiratory status, is appropriate, and schedule permits. RN/MD aware. Recommendations: NPO with frequent aggressive oral care. Ice chips and small sips water allowed for pleasure, safe swallow stimulation, and after oral care to prevent buildup of bacteria within the oropharynx GAS TURBINE ASSEMBLER will continue to follow w/ swallow re-assessment [...] 04/27/2025 Status: Goal Initiated this date Plan: GAS TURBINE ASSEMBLER Services Indicated: Yes Frequency: 2x per week Discussed POC with patient and spouse GAS TURBINE ASSEMBLER - OK to Discharge Pain: 0-10 0 = No pain. Inpatient Education: Extensive education provided to patient and spouse regarding current swallow function, recommendations/results, and POC. Consultations/Referrals/Coordinati on of Services: N/A Communication Note Patient Name: Melissa Dubose Today's Date: 03/26/2025 Room: [address] [place] [address] Discipline: Physical Therapy PT Missed Visit: Yes Missed Visit Reason: (PT evaluation attempted, patient declining PT. Stating NO and not elaborating and not requesting further follow up. PT to sign off at this time, please reconsult if patient fails nursing mobility and is agreeable for participation.) 03/26/25 at 2:58 PM Harsh Reveles PT Rehab Office: [phone] Melissa Dubose is a 64 y.o. female [...] am INDICATION: Signs/Symptoms:intubated. COMPARISON: 03/24/2025 ACCESSION NUMBER(S): [id number] ORDERING CLINICIAN: NUNO GUILLEN FINDINGS: AP radiograph [...] atelectasis. Increased markings in a bibasilar distribution, cdxas-fhcklpz-mege-left. ABDOMEN: No remarkable upper abdominal findings. BONES: No acute osseous changes. Impression: 1. Unchanged appearance of the right upper lobe opacity concerning for atelectasis. 2. Bibasilar atelectasis/edema. MACRO: None Signed by: Lu Betancur 03/25/2025 11:09 AM Dictation workstation: [id number] Physical Exam Constitutional: General: She is not [...] Julia Ng 03/24/2025 5:04 PM Dictation workstation: [id number] Bronchoscopy Tier 2; Diagnostic Result Date: 03/24/2025 [...] FINE NEEDLE ASPIRATION CYTOLOGY CONSULTATION (NON-GYNECOLOGIC) Nabor Spraks MD 03/24/2025 1313 2 : 4R ( [...] Nabor Sparks MD 03/24/2025 1451 Procedure Location [facility] [address] [facility] [address] XR chest 1 view Result Date: 03/24/2025 1. Similar appearance of a right upper lobe wedge-shaped opacity, favored to represent atelectasis. As this is a new finding from CT chest 03/21/2025, this may be secondary to mucous plugging. Correlate with bronchoscopy. 2. There is worsening of bibasilar hazy opacities, evywu-nrorvmg-ltxv-left, and blunting of the bilateral costophrenic angles favored to represent small pleural effusions versus atelectasis. Infectious or inflammatory process can not be excluded. 3. Medical devices as above. I personally reviewed the images/study and I agree with the findings as stated by resident physician Jose Oneal MD. This study was interpreted at [facility], [place], [place]. MACRO: None Signed by: Lu Betancur 03/24/2025 11:04 AM Dictation workstation: [id number] XR chest 1 view Result Date: 03/23/2025 [...] Oneal MD. This study was interpreted at [facility], [place], [place]. MACRO: None Signed by: Lu Betancur 03/23/2025 11:58 AM Dictation workstation: [id number] Cardiology, Vascular, and Other Imaging Bronchoscopy Tier 2; Diagnostic Result Date: 03/24/2025 Table formatting from the original result was not included. Bronchoscopy Report [facility] Location: [facility] procedure room 8 INDICATION: Hilar mass - right BRONCHOSCOPIST: Nabor Sparks MD Tubing Machine Tender: Delmis Delaney MD REFERRING: Nuno Guillen MD [...] Nabor Sparks MD 03/24/2025 1451 Procedure Location [facility] [address] [facility] [address] ECG 12 lead Result Date: 03/24/2025 [...] NOK: Primary Emergency Contact: Ben Funez (father) [phone] - listed in chart, but daughter is involved per transfer call -> Rhina ([phone]) Disposition: ICU. Maybe floor tomorrow Tara Hernandez [...] There is worsening of bibasilar hazy opacities, pbyzp-knvracy-xtpu-left, and blunting of the bilateral costophrenic angles favored to represent small pleural effusions versus atelectasis. Infectious or inflammatory process can not be excluded. 3. Medical devices as above. I personally reviewed the images/study and I agree with the findings as stated by resident physician Jose Oneal MD. This study was interpreted at [place], [place]. MACRO: None Signed by: Lu Betancur 03/24/2025 11:04 AM Dictation workstation: [id number] XR chest 1 view Result Date: 03/23/2025 [...] Oneal MD. This study was interpreted at [place], [place]. MACRO: None Signed by: Lu Betancur 03/23/2025 11:58 AM Dictation workstation: [id number] Cardiology, Vascular, and Other Imaging ECG 12 lead Result Date: 03/24/2025 Normal sinus rhythm with sinus arrhythmia Incomplete right bundle branch block Possible Right ventricular hypertrophy Septal infarct , age undetermined ST & T wave abnormality, consider anterior ischemia Abnormal ECG Confirmed by Roc Ling ([id number]) on 03/24/2025 10:28:48 AM Transthoracic Echo Complete Result Date: 03/22/2025 [facility], [address] [place] [address] and TRANSTHORACIC ECHOCARDIOGRAM REPORT Patient Name: MELISSA DUBOSE Reading Physician: [id number] Aldo Gaspar MD Study Date: 03/22/2025 Ordering Provider: [id number] NUNO GUILLEN MRN/PID: [id number] Fellow: Nurse: Date of /Age: 12 1960 Personal Injury Legal Assistant: RAE Mccall RDCS Gender assigned at F Additional Staff: : Height: 177.80 cm Admit Date: 03/22/2025 Weight: 103.87 kg Admission Status: Inpatient - Routine BSA / BMI: 2.21 m2 / 32.86 kg/m2 Blood Pressure: 129/68 mmHg Department Location: [address] Study Type: TRANSTHORACIC ECHO (TTE) COMPLETE Diagnosis/ICD: Acute respiratory failure with hypoxia-J96.01 Indication: Acute respiratory failure with hypoxia CPT Code: Echo Complete w Full Doppler-68594 Patient History: Pertinent History: A-Fib, Dyspnea and [...] LA Area A2C: 19.5 cm2 LA Major Piedmont A4C: 6.6 cm LA Major Piedmont A2C: 6.6 cm LA Volume Index: 25.6 [...] 1.0 m/s (0.6-0.9m/s) PV Max P.2 mmHg [id number] Aldo Gaspar MD Electronically signed on 03/22/2025 [...] 3% saline nebs for bronch-pulm hygiene RENAL/GENITOURINARY: #?LCARY - resolved :: Admission Cr 1.18, no [...] NOK: Primary Emergency Contact: Ben Funez (father) [phone] - listed in chart, but daughter is involved per transfer call -> Rhina ([phone]) Disposition: Floor Tara Hernandez MD 03/24/25 at 12:02 PM Disclaimer: Documentation [...] outcome and rehab recommendation ROSA MARIA Jain, WORKDAY SENIOR ASSOCIATE Medical Intensive Care - Daily Progress Note [...] Oneal MD. This study was interpreted at [place], [place]. MACRO: None Signed by: Lu Betancur 03/23/2025 11:58 AM Dictation workstation: [id number] XR chest 1 view Result Date: 03/22/2025 1. ?Loculated air collection over the inferolateral margins of the right hemithorax. 2. Medical devices as above. MACRO: None Signed by: Lu Betancur 03/22/2025 9:28 AM Dictation workstation: [id number] XR abdomen 1 view Result Date: 03/22/2025 1. Enteric tube with the side port at the level of the GE junction projection MACRO: None Signed by: Lu Betancur 03/22/2025 8:41 AM Dictation workstation: [id number] Cardiology, Vascular, and Other Imaging Transthoracic Echo Complete Result Date: 03/22/2025 [facility], [address] [place] [address] and TRANSTHORACIC ECHOCARDIOGRAM REPORT Patient Name: MELISSA DUBOSE Reading Physician: [id number] Aldo Gaspar MD Study Date: 03/22/2025 Ordering Provider: [id number] NUNO GUILLEN MRN/PID: [id number] Fellow: Nurse: Date of /Age: 14 1960 Personal Injury Legal Assistant: RAE Mccall RDCS Gender assigned at F Additional Staff: : Height: 177.80 cm Admit Date: 03/22/2025 Weight: 103.87 kg Admission Status: Inpatient - Routine BSA / BMI: 2.21 m2 / 32.86 kg/m2 Blood Pressure: 129/68 mmHg Department Location: [address] Study Type: TRANSTHORACIC ECHO (TTE) COMPLETE Diagnosis/ICD: Acute respiratory failure with hypoxia-J96.01 Indication: Acute respiratory failure with hypoxia CPT Code: Echo Complete w Full Doppler-40196 Patient History: Pertinent History: A-Fib, Dyspnea and [...] LA Area A2C: 19.5 cm2 LA Major Pied[place] A4C: 6.6 cm LA Major P[place]mont A2C: 6.6 cm LA Volume Index: 25.6 [...] 1.0 m/s (0.6-0.9m/s) PV Max P.2 mmHg [id number] Aldo Gaspar MD Electronically signed on 03/22/2025 [...] NOK: Primary Emergency Contact: Ben Funez (father) [phone] - listed in chart, but daughter is involved per transfer call -> Rhina ([phone]) Disposition: Floor Tara Hernandez MD 03/23/25 at [...] hypoxic respiratory failure. Pharmacy reviewed the patient's zpfbw-ze-ytazwgrpz medications and allergies for accuracy. Medications ADDED: Toprol XL Norvasc Invokana Lidocaine patch Metformin Januvia Aldactone Tizanidine Acetaminophen Medications CHANGED: Entresto 49-51 to 97-103 Medications REMOVED: Jardiance Furosemide Imdur Lopressor The list below reflects the updated SENIOR UX DESIGNER list. Prior to Admission Medications Prescriptions Last [...] be assessed for M2B at discharge. Sources: [facility] Pharmacy dispense history Child - DaughterRhina ([phone])- Good historian Read off patient's prescription vials at home Chart Review Care Everywhere [facility] cardio note from 02/09 Additional Comments: None Veronica Oconnor PharmD Transitions of Care Pharmacist 03/22/25 Secure Chat preferred If no response call [phone] or [facility] documented in this encounter [facility] Work Phone: 04-07-2025 Miscellaneous Notes Problem: Skin [...] follow up Event end time: 1824 Location: [facility] 5 [x] Triage by phone or secure messaging Rapid response initiated by: [] Rapid response RN [] Family [] Nursing Talend Etl Developer [] Physician [x] RADAR auto page [] Sepsis auto-page [] RN [] RT [] SAP GATHERER/PA [] Other: Primary reason for call: [] [...] Free from restraint(s) (Restraint for Interference with Risk Control Analyst) Outcome: Progressing Goal: Remains free of injury from restraints (Restraint for Interference with Risk Control Analyst) Outcome: Progressing Problem: Pain Goal: Takes deep [...] Free from restraint(s) (Restraint for Interference with Risk Control Analyst) Outcome: Progressing Goal: Remains free of injury from restraints (Restraint for Interference with Risk Control Analyst) Outcome: Progressing Problem: Pain Goal: Takes deep [...] Free from restraint(s) (Restraint for Interference with Risk Control Analyst) Outcome: Progressing Goal: Remains free of injury from restraints (Restraint for Interference with Risk Control Analyst) Outcome: Progressing Problem: Pain Goal: Takes deep [...] Free from restraint(s) (Restraint for Interference with Risk Control Analyst) Outcome: Progressing Goal: Remains free of injury from restraints (Restraint for Interference with Risk Control Analyst) Outcome: Progressing Problem: Pain Goal: Takes deep [...] Free from restraint(s) (Restraint for Interference with Risk Control Analyst) Outcome: Progressing Goal: Remains free of injury from restraints (Restraint for Interference with Risk Control Analyst) Outcome: Progressing Problem: Pain Goal: Takes deep [...] Progressing Goal: Promote skin healing 04/02/20251836 by Freddy Mercado RN Outcome: Progressing [...] Free from restraint(s) (Restraint for Interference with Risk Control Analyst) Outcome: Progressing Goal: Remains free of injury from restraints (Restraint for Interference with Risk Control Analyst) Outcome: Progressing Problem: Pain Goal: Takes deep [...] Free from restraint(s) (Restraint for Interference with Risk Control Analyst) Outcome: Progressing Goal: Remains free of injury from restraints (Restraint for Interference with Risk Control Analyst) Outcome: Progressing Problem: Mechanical Ventilation Goal: Patient [...] time: 1240 Event end time: 1250 Location: [place] [address] [] Triage by phone or secure messaging Rapid response initiated by: [] Rapid response RN [] Family [] Nursing Talend Etl Developer [] Physician [x] RADAR auto page [] Sepsis auto-page [] RN [] RT [] SAP GATHERER/PA [] Other: Primary reason for call: [] [...] Free from restraint(s) (Restraint for Interference with Risk Control Analyst) Outcome: Progressing Goal: Remains free of injury from restraints (Restraint for Interference with Risk Control Analyst) Outcome: Progressing Problem: Pain Goal: Takes deep [...] communicated these nursing preferences to the MICU advanced nursing professor. Problem: Discharge Planning Goal: Discharge to home [...] Free from restraint(s) (Restraint for Interference with Risk Control Analyst) Outcome: Progressing Goal: Remains free of injury from restraints (Restraint for Interference with Risk Control Analyst) Outcome: Progressing Problem: Pain Goal: Takes deep [...] scan tomorrow. INTERVENTIONAL RADIOLOGY ADVANCED PRACTICE PROCEDURE [facility] A time out was performed and Right [...] Free from restraint(s) (Restraint for Interference with Risk Control Analyst) Outcome: Progressing Goal: Remains free of injury from restraints (Restraint for Interference with Risk Control Analyst) Outcome: Progressing Problem: Pain Goal: Takes deep [...] Free from restraint(s) (Restraint for Interference with Risk Control Analyst) Outcome: Progressing Goal: Remains free of injury from restraints (Restraint for Interference with Risk Control Analyst) Outcome: Progressing Problem: Pain Goal: Takes deep [...] report and patient will be transferred to [place] [address]. Nathaly Glover MD MPH Internal Medicine, PGY1 [...] Free from restraint(s) (Restraint for Interference with Risk Control Analyst) Outcome: Progressing Flowsheets (Taken 03/25/20252336) Free from restraint(s) (restraint for interference with medical review specialist): ONCE/SHIFT or MINIMUM Every 12 hours: Assess and document the continuing need for restraints Problem: Safety - Medical Restraint Goal: Remains free of injury from restraints (Restraint for Interference with Risk Control Analyst) Outcome: Progressing Flowsheets (Taken 03/25/20252336) Remains free of injury from restraints (restraint for interference with medical review specialist): Every 2 hours: Monitor safety, psychosocial status, [...] Ensure correct size (line/device) and apply per pressure test operator instructions Turn/reposition every 2 hours/use positioning/transfer devices [...] Free from restraint(s) (Restraint for Interference with Risk Control Analyst) Outcome: Progressing Flowsheets (Taken 03/25/20251805) Free from restraint(s) (restraint for interference with medical review specialist): ONCE/SHIFT or MINIMUM Every 12 hours: Assess and document the continuing need for restraints Every 24 hours: Continued use of restraint requires Licensed Independent Practitioner to perform face to face examination and written order Identify and implement measures to help patient regain control Goal: Remains free of injury from restraints (Restraint for Interference with Risk Control Analyst) Outcome: Progressing Flowsheets (Taken 03/25/20251805) Remains free of injury from restraints (restraint for interference with medical review specialist): Determine that other, less restrictive measures have [...] Free from restraint(s) (Restraint for Interference with Risk Control Analyst) 03/24/2025 1403 by Mumtaz Abbasi RN Outcome: Progressing 03/24/2025 140 by Mumtaz Abbasi RN Flowsheets (Taken 03/24/2025 140) Free from restraint(s) (restraint for interference with medical review specialist): Every 24 hours: Continued use of restraint requires Licensed Independent Practitioner to perform face to face examination and written order Goal: Remains free of injury from restraints (Restraint for Interference with Risk Control Analyst) 03/24/2025 1403 by Mumtaz Abbasi RN Outcome: Progressing 03/24/2025 140 by Mumtaz Abbasi RN Flowsheets (Taken 03/24/2025 1402) Remains free of injury from restraints (restraint for interference with medical review specialist): Evaluate the patient's condition at the time [...] Free from restraint(s) (Restraint for Interference with Risk Control Analyst) Outcome: Progressing Flowsheets (Taken 03/23/20252127) Free from restraint(s) (restraint for interference with medical review specialist): ONCE/SHIFT or MINIMUM Every 12 hours: Assess and document the continuing need for restraints Goal: Remains free of injury from restraints (Restraint for Interference with Risk Control Analyst) Outcome: Progressing Flowsheets (Taken 03/23/20252127) Remains free of injury from restraints (restraint for interference with medical review specialist): Every 2 hours: Monitor safety, psychosocial status, [...] 03/24 in AM showed RBBB and c/f NE. Repeat EKG showed RBBB and no ST [...] L NC on 03/28 and transferred to [facility] oncology for management of new NSCLC and [...] referral was faxed 04/02. Dr. Escobedo at [facility] was messaged for further recommendations on treatment timing with acute rehab, OK with acute rehab before starting chemo. Patient referred to outpatient thoracic onc at [facility] (Dr. Escobedo staff working on scheduling appt) and outpatient rad onc at [facility] w/ Dr. Arroyo. To-do [ ] Follow [...] injury from restraints (Restraint for Interference with Risk Control Analyst) Outcome: Met Goal: Free from restraint(s) (Restraint for Interference with Risk Control Analyst) Outcome: Not Progressing Flowsheets (Taken 03/22/20252110 by Amado Tolliver RN) Free from restraint(s) (restraint for interference with medical review specialist): ONCE/SHIFT or MINIMUM Every 12 hours: Assess and document the continuing need for restraints Problem: Safety - Medical Restraint Goal: Free from restraint(s) (Restraint for Interference with Risk Control Analyst) Outcome: Not Progressing Flowsheets (Taken 03/22/20252110 by Amado Tolliver RN) Free from restraint(s) (restraint for interference with medical review specialist): ONCE/SHIFT or MINIMUM Every 12 hours: Assess [...] injury from restraints (Restraint for Interference with Risk Control Analyst) Outcome: Progressing Flowsheets (Taken 03/22/20252110) Remains free of injury from restraints (restraint for interference with medical review specialist): Every 2 hours: Monitor safety, psychosocial status, comfort, nutrition and hydration Goal: Free from restraint(s) (Restraint for Interference with Risk Control Analyst) Outcome: Progressing Flowsheets (Taken 03/22/20252110) Free from restraint(s) (restraint for interference with medical review specialist): ONCE/SHIFT or MINIMUM Every 12 hours: Assess and document the continuing need for restraints Problem: Safety - Medical Restraint Goal: Remains free of injury from restraints (Restraint for Interference with Risk Control Analyst) Outcome: Progressing Goal: Free from restraint(s) (Restraint for Interference with Risk Control Analyst) Outcome: Progressing The patient's goals for the [...] Ensure correct size (line/device) and apply per pressure test operator instructions Turn/reposition every 2 hours/use positioning/transfer devices Protective dressings over bony prominences 03/22/2025736 by Jag Posada RN Outcome: Progressing Flowsheets (Taken 03/22/2025736) Promote skin healing: Assess skin/pad under line(s)/device(s) Rotate device position/do not position patient on device Ensure correct size (line/device) and apply per pressure test operator instructions Turn/reposition every 2 hours/use positioning/transfer devices [...] injury from restraints (Restraint for Interference with Risk Control Analyst) 03/22/2025737 by Jag Posada RN Outcome: Progressing 03/22/2025736 by Jag Posada RN Outcome: Progressing Goal: Free from restraint(s) (Restraint for Interference with Risk Control Analyst) 03/22/2025737 by Jag Posada RN Outcome: Progressing 03/22/2025736 by Jag Posada RN Outcome: Progressing documented in this encounter [facility] Work Phone: 04-02-2025 Hospital Discharge instructions Rai Rand MD - 04/02/2025 2:25 PM EDT Images from the original note were not included. Dear Ms. Dubose, You were admitted to [facility] on 03/22/2025 due to worsening shortness of breath and right-sided chest pain. A CT scan of your chest at [facility] showed a mass in your right lung that extended near your trachea and blocked your main right airway. There was also some fluid in the space between your lungs and chest wall. The decision was made to transfer you to [facility] for more specialized pulmonary care. On the way, you experienced worsening shortness of breath, and you were intubated and connected to a ventilator. You were in the medical ICU at [facility] from 03/22/2025 to 03/27/2025. You underwent [...] treatment. You were recommending for discharge to group home facility to improve and rebuild your strength. We have contacted Dr. Amira Escobedo at [facility] to coordinate your care after your discharge from the hospital. INSTRUCTIONS: - please take oxycodone for pain every 4 hours as needed. Please take 5mg (1 tablet) for moderate pain and 10mg (2 tablets) for severe pain. - please attend your important follow up appointments The following attachments cannot be sent through Care Everywhere.Chest Pain, Adult ED ([place] Island[place])documented in this encounter [facility] Work Phone: 04-02-2025 Consult note Formatting of [...] No family history on file. Cosigned by Naobr Sparks MD at 04/02/2025 2:09 PM EDT [...] When comparing pm CXR on 03/31 to manager instrumentation film from PET scan on 04/01 it [...] requiring mechanical ventilation. She originally presented to [facility] 03/21 for 1 week of progressive SOB [...] Therapy Last seen: 03/29 Evaluation: regular/thins, no GAS TURBINE ASSEMBLER needed REVIEW OF SYSTEMS Constitutional: Denies fever, [...] triceps, wrist extensors, finger flexors, interossei, and veterinarian assistant except b/l EF 4+/5 and EE 4/5 [...] transfer. - For questions, please contact via [place] We will follow along with you. Thank you for the consult. Capo Bolanos DO, MBA, PGY-4 Physical Medicine and Rehabilitation Available via [facility] Patient seen and examined with attending Dr. [...] much rather be close to home in [facility] and I suspect slower pace of rehab will be more appropriate and could be done there. Acute rehab at critical access hospital in [facility] still require no chemo.XRT but should refer [...] The patient required intubation, with transfer to [facility] MICU. On 03/24 the patient proceeded [...] 0.04 x10*3/uL Pathology Review: urgical Pathology Exam: [id number] Order: [id number] Collected 03/24/2025 13:34 Status: Final result Dx: Acute hypoxic respiratory failure Test Result Released: No (inaccessible in [facility]) 0 Result Notes Component FINAL DIAGNOSIS A. LYMPH NODE, PULMONARY 4R, BIOPSY: - Non-small cell carcinoma, favor adenocarcinoma. See note. - See concurrent cytology specimen ([id number]). Note: Tumor cells are positive for TTF-1 (8G7G3) and CK7, while they are negative for p40. The findings support the above diagnosis. PD-L1 immunostain results are reported below. Tumor Block: A1 Preliminary Assessment of Specimen Adequacy for Ancillary Testing: Adequate Viable tumor nuclei: 20% human performance consultant: Dr. Peter Shirley. at 1048 EDT [...] Tentative plans to consider follow-up coordination with [facility]'s radiation oncology in [place]. I spent 55 minutes in the professional [...] 03/29/25 0121 Associated Order(s): Inpatient consult to [facility] Adult Supportive Oncology SUPPORTIVE AND PALLIATIVE ONCOLOGY CONSULT SERVICE DATE: 03/28/2025 ASSESSMENT/PLAN: Melissa Dubose is a 64 y.o. female diagnosed with large hilar mass with obstruction of the BECCA bronchus s/p biopsy and bronchial stent with preliminary pathology showing NSCLC . PMH significant for CAD (s/p CABG 2015), HTN, Afib, DM2, HFrEF 2/2 ischemic cardiomyopathy. Presented to [place] [address]/13 for SOB and hypoxia. Intubated and transferred to [facility]U 03/22/2025 for further evaluation and management [...] medications to patient prior to discharge via [facility] pharmacy. Prescriptions will need to be sent 48-72 hours prior to discharge so that a prior authorization can be completed. Discharge date: unknown pending acute issues Will assess if patient needs an appointment with Outpatient Supportive Oncology as appropriate SIGNATURE: BERNADETTE Gilmore, DNP PAGER/CONTACT: Contact information: Supportive and Palliative Oncology Saturday-Saturday 8 AM-5 PM ZYB Secure chat or pager [phone]. After hours and weekends: pager [phone] Inpatient consult to [facility] Adult Supportive Oncology Consult performed by: Nova Pierce, JAVA SPRING DEVELOPER-INFORMATION SYSTEMS ADMINISTRATOR, DNP Consult ordered by: Nneka Van MD PALLIATIVE MEDICINE OUTPATIENT PROVIDER: None CURRENT ATTENDING PROVIDER: Nneka Van MD Medical Oncologist: No care contact center team lead to display Radiation Oncologist: No care contact center team lead to display Primary Physician: Madison Magana [phone] REASON FOR CONSULT/CHIEF CONSULT COMPLAINT: pain management [...] DM2, HFrEF 2/2 ischemic cardiomyopathy. Presented to [facility] 03/21 for SOB and hypoxia. Intubated and transferred to [facility] 03/22/2025 for further evaluation and management [...] Value Ventricular Rate 85 Atrial Rate 85 [place] Interval 142 QRS Duration 118 QT Interval 378 QTC Calculation(Bazett) 449 P [place] 27 R [place] 104 T [place] 102 QRS Count 14 Q Onset 221 [...] preferences in decision-making including Healthcare Power of Tabular Typist. Introduced the role and philosophy of Supportive and Palliative oncology in the evaluation and management of symptoms during cancer treatment and qualifications for outpatient follow up Provided printed information and resource packet that includes: NCCN Palliative Care 2022 booklet Supportive and Palliative Oncology team flyer [place] Advance Directives forms Caregiver Resource list List of local and national resources for financial, legal, caregiver support Medical Decision Making/Goals of Care/Advance Care Planning: Patient's current clinical condition, including diagnosis, prognosis, and management plan, and goals of care were discussed. Life limiting disease: lung mass, AHRF Family: Supportive father, children, sisters Performance status: Major limitations due to disease process Joys/meaning/strength: Family and [place] Understanding of health: Demonstrates some understanding of disease process, did not readily share what has been discussed Code status discussion: Discussed previously and Full code Advance Directives Existence of Advance Directives:Non, wants to think about completing them Decision maker: Discussed [place] hierarchy of legal next of kin and [...] of shared electronic medical record/secure chat/email or [id number]. We will continue to follow. Please contact us for additional questions or concerns. SIGNATURE: BERNADETTE Gilmore DNP PAGER/CONTACT: Contact information: Supportive and Palliative Oncology Saturday-Saturday 8 AM-5 PM ZYB Secure chat or pager [phone]. After hours and weekends: pager [phone] [1] Past Medical History: Diagnosis Date A-fib [...] acute hypoxic respiratory failure. Pt presented to [facility] 03/21 for 1 week of SOB and [...] hypoxia, she was intubated and transferred to [facility] on 03/22 and admitted to MICU. Underwent bronchoscopy 03/25 with biopsy, with bedside initial pathologic impression of NSCLC, final pathology pending. She had stent placement and was started on diuresis for bilateral pleural effusions. She has tolerated weaning of ventilator settings while at [facility]. Oncology was consulted for workup and treatment [...] (coronary artery disease), DM (diabetes mellitus) (Multi), PADNEY (dyspnea on exertion), GERD (gastroesophageal reflux disease), [...] PM -------- ORIGINAL REPORT -------- Dictation workstation: [id number] Result Date: 03/26/2025 Interpreted By: Lu Betancur, STUDY: XR CHEST 1 VIEW; 03/26/2025 9:07 am INDICATION: Signs/Symptoms:evaluation of bilateral pleural effusions after diuresis. COMPARISON: 03/25/2025 ACCESSION NUMBER(S): [id number] ORDERING CLINICIAN: NUNO GUILLEN FINDINGS: AP radiograph of the chest was provided. Insert mediastinum Enteric tube courses past the diaphragm and terminates outside the field of view. Endotracheal tube terminates 5.9 cm from the melvin. CARDIOMEDIASTINAL SILHOUETTE: Choose tube LUNGS: Minimal increased markings in a bibasilar distribution, jahig-qqbdjsd-eisn-left. Blunting of the right costophrenic angle. No evidence of a pneumothorax. ABDOMEN: No remarkable upper abdominal findings. BONES: No acute osseous changes. 1. Bibasilar atelectasis/edema. Small right pleural effusion. No evidence of pneumothorax. 2. Medical devices as above MACRO: None Signed by: Lu Betancur 03/26/2025 4:34 PM Dictation workstation: [id number] Assessment/Plan 64 y.o. female presenting with PMHx [...] radiation -if pt prefers follow up in [facility] she can be referred to Dr. Amira Escobedo upon discharge Thank you for the consult. We will continue to follow. Tino Ramírez MD, PhD Hem/onc fellow [id number] I spent 60 minutes in the professional [...] mass invading the adjacent pneumomediastinum. Transferred to [facility] for possible interventional pulmonology eval. She remains [...] Energy Estimated Needs in 24 hours (kCal): (2913-8181) Method for Estimating Needs: MV= 4.7, RMR= [...] glucagon, ipratropium-albuteroL, oxygen documented in this encounter [facility] Work Phone: 04-01-2025 History of Present illness [...] Continue per current treatment plan. Follow-up at [facility]. documented in this encounter [facility] Work Phone: 03-24-2025 History and physical note H&P reviewed. The patient was examined and there are no changes to the H&P. Cosigned by Nabor Sparsk MD at 03/24/2025 4:24 PM EDT Source [...] requiring mechanical ventilation. She originally presented to [facility] 03/21 for 1 week of progressive shortness [...] with transfer center, accepted for transfer to [facility] initiated for interventional pulmonology evaluation. Prior to [...] devices as above. MACRO: None Signed by: uL Betancur 03/22/2025 9:28 AM Dictation workstation: [id number] XR abdomen 1 view Result Date: 03/22/2025 1. Enteric tube with the side port at the level of the GE junction projection MACRO: None Signed by: Lu Betancur 03/22/2025 8:41 AM Dictation workstation: [id number] Assessment and Plan Assessment: Melissa Dubose is [...] NOK: Primary Emergency Contact: Ben Funez (father) [phone] - listed in chart, but daughter is [...] requiring mechanical ventilation. She originally presented to [facility] 03/21 for 1 week of progressive shortness [...] with transfer center, accepted for transfer to [facility] initiated for interventional pulmonology evaluation. Prior to [...] Lu Betancur 03/22/2025 9:28 AM Dictation workstation: [id number] XR abdomen 1 view Result Date: 03/22/2025 1. Enteric tube with the side port at the level of the GE junction projection MACRO: None Signed by: Lu Betancur 03/22/2025 8:41 AM Dictation workstation: [id number] Assessment and Plan Assessment: Melissa Dubose is [...] Code NOK: Primary Emergency Contact: ArminBen (father) [phone] - listed in chart, but daughter is involved per transfer call [facility] T[facility] Hernandez MD 03/22/25 at 1:35 [...] Time: 45 minutes documented in this encounter [facility] Work Phone: 02-09-2025 Note [place] Electrophysiology Consult Note [place] Cardiology - [facility] Reason for visit: Atrial fibrillation HPI: Melissa Dubose is a 64 y.o. year old with past medical history of CAD s/p CABG in 2016, hypertension, atrial fibrillation who was previously known to have heart failure symptoms with an EF of 25%. She had presented with A-fib with RVR during these times and had recently undergone a cardiac catheterization at [facility] which showed the grafts were patent. [...] Lungs Respiratory Eff (more content not included)... [facility] 12-04-2024 Note [place] Cardiology - [facility] Subjective Melissa Dubose is a [...] calculi Type 2 diabetes mellitus without complication (CMS/[facility]ERLY [facility]) Current smoker Family History Problem Relation [...] ventricular response. She underwent cardiac catheterization at [facility] which showed patent bypass grafts. She [...] on the le (more content not included)... [facility] 09-28-2024 Note Progress Note-Effie dee Patient: MELISSA [...] diabetes mellitus without complication / SNOMED CT 324299571 / Confirmed Tobacco use / SNOMED CT 5485094412 / Confirmed Smoker / SNOMED CT 092473079 / Confirmed Added secondary to documentation in Social History. OAB (overactive bladder) / SNOMED CT 9167785297 / Confirmed Myocardial infarction / SNOMED CT 72677479 / Confirmed Heart attack / SNOMED CT 42555506 / Confirmed Leukocytosis / SNOMED CT 490670093 / Confirmed Kidney stones / SNOMED CT 019186719 / Confirmed Hypertension / SNOMED CT 3129520573 / Confirmed High cholesterol / SNOMED CT 60909023 / Confirmed Heart failure with reduced ejection fraction. / SNOMED CT 8589945506 / Confirmed Heart disease / SNOMED CT 06135061 / Confirmed Personal history of urinary calculi / SNOMED CT 721988437 / Confirmed Gastrointestinal hemorrhage / SNOMED CT 691880535 / Confirmed Gastroesophageal reflux disease / SNOMED CT 719354150 / Confirmed Gross hematuria / SNOMED CT 376786386 / Confirmed Former smoker / SNOMED CT 14026475 / Confirmed Essential hypertension / SNOMED CT 95538100 / Confirmed Anticoagulated / SNOMED CT 288112494 / Confirmed Coronary arteriosclerosis / SNOMED CT 40002231 / Confirmed Atrial fibrillation / SNOMED CT 25183670 / Confirmed Adrenal mass / SNOMED CT 749388537 / Confirmed Histories Procedure history: Flexible cystoscope (255139594) on 08/20/2024 at 63 Years. Cardioversion (024718561) in the month of 01/2024 at 63 Years. History of - coronary artery bypass grafting (context-dependent category) (4028841004). Cardiac catheter (6084197792). Comments: 06/02/2024 13:32 EDT - Chiquita Kiran MA, Dr. 11/22/2023 Colonoscopy (019233163). Cholecystectomy (59858013). Hysterectomy (909277268). Surgical procedure on cervical spine x2 (2391517108). Surgical procedure on lumbar spine x2 (6854549414). Social History Social & Psychosocial Habits Alcohol 09/24/2024 Risk Assessment: Denies Alcohol Use Tobacco 09/24/2024 Tobacco Use: 10 or more cigarettes (1/, Former smoker, quit more Smokeless tobacco use: Never Type: Cigarettes 09/24/2024 Risk Assessment: High Risk . Physical Examination Airway: Mallampati classification: II (soft palate, fauces, uvula visible). Respiratory: adequate air exchange. Cardiovascular: Regular rhythm. Plan [place] [employer]esthesi[employer] (ASA) physical status classification: Class III. Anesthetic Preoperative Plan: Anesthesia General. [facility] Comment on above: Result Comment: Elec tronically [...] when meets criteria ( To home ). [facility] Comment on above: Result Comment: Elec tronically Signed By: Aristeo Bhakta Jr, DO\.br\Date and Time Signed: 09/28/24 11:04 EST 09-24-2024 Hospital Discharge instructions Patient Education 09/24/2024 15:14:33 Post Op Patient Instructions - FT (CUSTOM) 09/24/2024 15:14:30 [facility] Utereroscopy,Lithotripsy, Stone Extraction, Stent Placement(CUSTOM) [facility] [place], [place] Dr. Benjy Lobo Post-operative Instructions for [...] other reasons. If it is to remain terminal make up operator, however, changes of the stent are [...] arrange for your post-operative appointment (with XRAY) [phone] Follow Up Care 08/25/2024 14:44:55 With:Benjy JOHNSON Address: [address] [id number] (1) When: Unknown Comments:Call for followup [...] send into the pharmacy.Have a great day. [facility] 09-24-2024 Note Patient Education - Text [facility] [place], [place] Dr. Benjy Lobo Post-operative Instructions for [...] other reasons. If it is to remain terminal make up operator, however, changes of the stent are [...] arrange for your post-operative appointment (with XRAY) [phone] [facility] 08-24-2024 Note [place] [facility] - [facility] Subjective Melissa Dubose is a [...] HFrEF (heart failure with reduced ejection fraction) ([facility]) Influenza A Myocardial injury NSTEMI (non-ST elevated myocardial infarction) ([facility]) S/P CABG (coronary artery bypass graft) Shortness of breath History of cardioversion Cardiomyopathy ([facility]) Hyperlipidemia Abnormal result of cardiovascular function study, unspecified Adrenal mass ([facility]) Anticoagulated Former smoker Gastroesophageal reflux disease Gastrointestinal hemorrhage Gross hematuria Kidney stones Leukocytosis OAB (overactive bladder) Personal history of urinary calculi Type 2 diabetes mellitus without complication ([facility]) Family History Problem Relation Name Age [...] ventricular response. She underwent cardiac catheterization at [facility] which showed patent bypass grafts. She [...] normal. No re (more content not included)... [facility] 08-20-2024 Hospital Discharge instructions Patient Education 08/20/2024 [...] Follow these instructions at home: Medicines Take gfai-rra-ycgqlrf and prescription medicines only as told by [...] or the blood stops without treatment. Take mvsk-bju-vikccfn and prescription medicines only as told by your health care provider. Drink enough fluid to keep your urine pale yellow. This information is not intended to replace advice given to you by your health care provider. Make sure you discuss any questions you have with your health care provider. Document Revised: 04/26/2021 Document Reviewed: 04/26/2021 [employer] Patient Education 2023 [employer]. Follow Up Care 06/12/2024 09:29:06 With:SHANNAN HO, Benjy Sevilla, URL Address: [facility] [employer] [address] [place], [place] [id number]- When: Unknown [facility] 08-20-2024 Note Patient Education Urology Hematuria, Adult [...] these instructions at home: Medicines ??? Take ibch-iyt-ebidtox and prescription medicines only as told by [...] the blood stops without treatment. ??? Take tqaj-yhf-ggcxosx and prescription medicines only as told by your health care provider. ??? Drink enough fluid to keep your urine pale yellow. This information is not intended to replace advice given to you by your health care provider. Make sure you discuss any questions you have with your health care provider. Document Revised: 04/26/2021 Document Reviewed: 04/26/2021 [employer] Patient Education ? 2023 [employer]. [facility] 08-20-2024 Evaluation + Plan note Diagnostic Tests PendingUroVysion Fish and Urine Cyto ([facility]) 08/20/24 [facility] 07-29-2024 Note [place] [facility] - [facility] Subjective Melissa Dubose is a [...] ventricular response. She underwent cardiac catheterization at [facility] which showed patent bypass grafts. She [...] and time. P (more content not included)... [facility] 06-02-2024 Hospital Discharge instructions Patient Education 06/02/2024 [...] Follow these instructions at home: Medicines Take gcav-rkf-rqcmdpl and prescription medicines only as told by [...] or the blood stops without treatment. Take tpjz-xwg-astyhlz and prescription medicines only as told by your health care provider. Drink enough fluid to keep your urine pale yellow. This information is not intended to replace advice given to you by your health care provider. Make sure you discuss any questions you have with your health care provider. Document Revised: 04/26/2021 Document Reviewed: 04/26/2021 [employer] Patient Education 2023 [employer] 06/02/2024 14:44:31 Dietary Guidelines to Help [...] include: ?8 oz (237 mL) of milk, eqlmlhc-elcznjtbspel-ffbeh milk, and calcium-fortifiedfruit juice. Calcium-fortified means that [...] ?Spinach (cooked), rhubarb, beets, sweet potatoes, and Malian chard. ?Peanuts. ?Potato chips, amharic fries, and baked potatoes with skin on. ?Nuts and nut products. ?Chocolate. If you regularly take a diuretic medicine, make sure to eat at least 1 or 2 servings of fruits or vegetables that are high in potassium each day. These include: ?Avocado. ?Banana. ?[place], prune, carrot, or tomato juice. ?Baked potato. [...] magnesium, fish oil, or vitamin B6. Take gvww-juk-hreazuy and prescription medicines only as told by [...] Casseroles. Pizza. Lasagna. Frozen meals. Potato chips. Nicaraguan fries. The items listed above may not [...] provider. Document Revised: 12/06/2022 Document Reviewed: 12/06/2022 [employer] Patient Education 2023 [employer]. Follow Up Care 04/30/2024 14:04:54 With:SHANNAN HO, Benjy Sevilla, URL Address: [facility] [address] [place], [place] [id number]- When: Unknown Comments:cysto [facility] Milly 06-02-2024 Note Patient Education Nephrology Dietary [...] ? 8 oz (237 mL) of milk, lhvkdwx-jomqpztanmqz-qswjl milk, and calcium-fortifiedfruit juice. Calcium-fortified means that [...] Spinach (cooked), rhubarb, beets, sweet potatoes, and Malian chard. ? Peanuts. ? Potato chips, amharic fries, and baked potatoes with skin on. ? Nuts and nut products. ? Chocolate. ? If you regularly take a diuretic medicine, make sure to eat at least 1 or 2 servings of fruits or vegetables that are high in potassium each day. These include: ? Avocado. ? Banana. ? [place], prune, carrot, or tomato juice. ? Baked [...] fish oil, or vitamin B6. ? Take xwdt-qpm-zkevnth and prescription medicines only as told by your health care provider. These include suppleme (more content not included)... [facility] 06-02-2024 Evaluation + Plan note Diagnostic Tests PendingUrine Cytology ([facility]) 06/02/24 [facility] 05-01-2024 Note [place] [facility] - [facility] Subjective Melissa Dubose is a [...] Myocardial injury NSTEMI (non-ST elevated myocardial infarction) ([facility]) S/P CABG (coronary artery bypass graft) [...] ventricular response. She underwent cardiac catheterization at [facility] which showed patent bypass grafts. She [...] Allergen Reactions Oxycodone-Scout (more content not included)... [facility] 02-19-2024 Note [place] [facility] Note Reason for cardiology [...] ventricular response. She underwent cardiac catheterization at [facility] which showed patent bypass grafts. She [...] Global left v (more content not included)... [facility] 11-25-2023 Discharge summary Note Date/Time November 25, 2023 1:11pm [facility] [address] [place] [address] Discharge Summary Signed Patient: Melissa Dubose MR#: [id number] : 1960 Acct:[id number] Age/Sex: 63 / F Adm Date: 4 Loc: Room: [address] [place] [address]: Johnny Bernal MD Copies to: [...] who presented to the emergency department at [place] [facility] with chest pain, shortness of breath, [...] will befollowed by her PCP and her divorce attorney. Time Spent with Patient Time spent providing/coordinating [...] Low-Cholesterol Additional Instructions: DISCHARGE INSTRUCTIONS FOR CARDIAC SPACE CONTROL SUPERVISOR PROCEDURE: Heart Cath The following instructions have [...] cold, numb, blue or white, call the divorce attorney immediately. 4. ACTIVITY: You are advised to [...] bottle, follow the instructions on the bottle. [facility] is not responsible for incorrect prescription [...] tablet 1 tab PO Q12HR Follow Up: [facility] [Provider Group] - 12/11/23 11:00 [...] needed.) Documented By: Johnny Bernal MD 11/25/23 1308 Signed By: <Electronically signed by Johnny Bernal MD> 11/25/23 1610 [facility] Work Phone: 1(471) 298-338303-17-2024 Progress note Author Winter Norris [facility] November 24, 2023 10:00am Note Date/Time November 24, 2023 9:5 7am [facility] [address] [place] [address] Hospitalist Progress Note Signed Patient: Melissa Dubose MR#: [id number] : 1960 Acct:[id number] Age/Sex: 63 / F Adm Date: 4 Loc: Room: 7M8681-5 Type: ADM IN Attending Dr: Winter Norris [...] 86% on room air upon arrival to [facility] emergency room, 4 L nasal cannula [...] signed by Winter Norris MD> 11/24/23 [address] [facility] Work Phone: 1(383) 845-711103-16-2024 Progress note Author Justine Jacobo [facility] November 23, 2023 1:38pm Note Date/Time November 23, 2023 1:2 9pm [facility] [address] [place] [address] Cardiology Progress Note Signed Patient: Melissa Dubose MR#: [id number] : 1960 Acct:[id number] Age/Sex: 63 / F Adm Date: 4 Loc: Room: [address] [place] [address] Type: ADM IN Attending Dr: Winter Norris [...] % (Auto) 72.7 Lymph % (Auto) 17.7 Anderson % (Auto) 9.5 Eos % (Auto) 0.0 Baso % (Auto) 0.1 Nucleat RBC Rel Count 0.1 Neut # (Auto) 7.0 Lymph # (Auto) 1.7 Anderson # (Auto) 0.9 H Eos # (Auto) [...] MPV Neut % (Auto) Lymph % (Auto) Anderson % (Auto) Eos % (Auto) Baso % (Auto) Nucleat RBC Rel Count Neut # (Auto) Lymph # (Auto) Anderson # (Auto) Eos # (Auto) Baso # [...] bypass graft (4) Coronary artery disease involving citizen [place] coronary artery of citizen [place] heart without angina pectoris: Code(s): I25.10 - Atherosclerotic heart disease of citizen [place] coronary artery without angina pectoris (5) Myocardial injury: Code(s): I5A - Non-ischemic myocardial injury (non-traumatic) Plan # Admitted for cough and SOB 2/2 Influenza A infection # Mild acute HF in setting of HFrEF due to dilated ischemic cardiomyopathy - NYHA II, ACC C. # Moderate to severe MR # Paroxysmal nonvalvular Atrial fibrillation - Rate controlled. [id number] = 5. # Non-ACS troponin elevation due to myocardial injury - Secondary to influenza and mild acute heart failure. # CAD s/p 3v CABG (done ~2013) - No angina. [facility] this admission shows patent grafts. # Other: T2DM, HTN. Echo 11/21/23 - EF 25%, severe LV dilation, severely dilated LA, moderately dilated RA, moderate to severe MR, mild TR, RVSP 60 mmHg consistent with severe pulmonary hypertension, moderately dilated IVC, PFO by color Doppler. C 11/22/23 - Severe citizen [place] coronary artery disease with patent grafts BALLESTEROS [...] up with her primarycardiologist Dr. Dukes at [facility] in 1-2 weeks. Documented By: Justine Jacobo MD 11/07 03/02 1327 Signed By: <Electronically signed by Justine Jacobo MD> 11/23/23 [address] [facility] Work Phone: 1(958) 263-550003-16-2024 Progress note Author Winter Norris [facility] November 23, 2023 10:04am Note Date/Time November 23, 2023 9:5 4am [facility] [address] [place] [address] Hospitalist Progress Note Signed Patient: Melissa Dubose MR#: [id number] : 1960 Acct:[id number] Age/Sex: 63 / F Adm Date: 4 Loc: Room: 1L5548-5 Type: ADM IN Attending Dr: Winter Norris [...] 86% on room air upon arrival to [facility] emergency room, 4 L nasal cannula [...] <Electronically signed by Winter Norris MD> 11/23/23 [address] [facility] Work Phone: 1(306) 647-378203-15-2024 Progress note Author Jayne Vallecillo [facility] November 22, 2023 3:26pm Note Date/Time November 22, 2023 3:1 5pm [facility] [address] [place] [address] Cardiology Progress Note Signed Patient: Melissa Dubose MR#: [id number] : 1960 Acct:[id number] Age/Sex: 63 / F Adm Date: 4 Loc: 4P Room: 0J8604-2 Type: ADM IN Attending Dr: Winter Norris MD Copies to: ~ Date of Service: 11/22/2023 Subjective Interval history: - No acute events overnight. Continues to have mild dyspnea and orthopnea. - [facility] completed today by Dr Siddiqi. Exam [...] MPV Neut % (Auto) Lymph % (Auto) Anderson % (Auto) Eos % (Auto) Baso % (Auto) Nucleat RBC Rel Count Neut # (Auto) Lymph # (Auto) Anderson # (Auto) Eos # (Auto) Baso # (Auto) PT INR APTT 152.4 H* 47.2 H PHA Creatinine Clear Sodium Potassium Chloride Carbon Dioxide Anion Gap BUN Creatinine Est GFR (CKD-EPI) POC Glucose 345 POC Glucose Comment Urine Color Urine Appearance Urine pH Ur Specific [place] Urine Protein Urine Glucose (UA) Urine Ketones Urine Occult Blood Urine Nitrite Urine Bilirubin Urine Urobilinogen Ur Leukocyte Esterase Urine RBC Urine WBC Ur Squamous Epith Cells Urine Bacteria Hyaline Casts 11/21/23 11/21/23 11/21/23 18:15 20:45 20:45 Corrected WBC Uncorrected WBC Count RBC Hgb Hct MCV MCH MCHC RDW Plt Count MPV Neut % (Auto) Lymph % (Auto) Anderson % (Auto) Eos % (Auto) Baso % (Auto) Nucleat RBC Rel Count Neut # (Auto) Lymph # (Auto) Anderson # (Auto) Eos # (Auto) Baso # (Auto) PT INR APTT PHA Creatinine Clear Sodium Potassium Chloride Carbon Dioxide Anion Gap BUN Creatinine Est GFR (CKD-EPI) POC Glucose 405 H* POC Glucose Comment Cleaned meter Urine Color Yellow Urine Appearance Clear Urine pH 5.5 Ur Specific [place] 1.012 Urine Protein Negative Urine Glucose (UA) [...] % (Auto) 81.3 Lymph % (Auto) 10.0 Anderson % (Auto) 8.6 Eos % (Auto) 0.0 Baso % (Auto) 0.1 Nucleat RBC Rel Count 0.1 Neut # (Auto) 5.3 Lymph # (Auto) 0.6 L Anderson # (Auto) 0.6 Eos # (Auto) 0.0 Baso # (Auto) 0.0 PT 14.0 H INR 1.2 APTT 27.6 PHA Creatinine Clear 68.56 Sodium 138 Potassium 4.7 Chloride 103 Carbon Dioxide 28.3 Anion Gap 11.4 BUN 24 Creatinine 1.15 Est GFR (CKD-EPI) 54.198 POC Glucose 354 POC Glucose Comment Will repeat test Urine Color Urine Appearance Urine pH Ur Specific [place] Urine Protein Urine Glucose (UA) Urine Ketones Urine Occult Blood Urine Nitrite Urine Bilirubin Urine Urobilinogen Ur Leukocyte Esterase Urine RBC Urine WBC Ur Squamous Epith Cells Urine Bacteria Hyaline Casts 11/22/23 11:31 Corrected WBC Uncorrected WBC Count RBC Hgb Hct MCV MCH MCHC RDW Plt Count MPV Neut % (Auto) Lymph % (Auto) Anderson % (Auto) Eos % (Auto) Baso % (Auto) Nucleat RBC Rel Count Neut # (Auto) Lymph # (Auto) Anderson # (Auto) Eos # (Auto) Baso # (Auto) PT INR APTT PHA Creatinine Clear Sodium Potassium Chloride Carbon Dioxide Anion Gap BUN Creatinine Est GFR (CKD-EPI) POC Glucose 181 POC Glucose Comment Urine Color Urine Appearance Urine pH Ur Specific [place] Urine Protein Urine Glucose (UA) Urine Ketones [...] bypass graft (4) Coronary artery disease involving citizen [place] coronary artery of citizen [place] heart without angina pectoris: Code(s): I25.10 - Atherosclerotic heart disease of citizen [place] coronary artery without angina pectoris (5) Myocardial injury: Code(s): I5A - Non-ischemic myocardial injury (non-traumatic) Plan # Mild acute HF in setting of newly diagnosed HFrEF due to undefined cardiomyopathy # Dilated ischemic cardiomyopathy EF 25% # Moderate to severe MR # Atrial fibrillation [id number] = 5 # Influenza A infection # [...] Recommendations: - LHC completed today shows severe citizen [place] coronary artery disease with patent grafts BALLESTEROS [...] <Electronically signed by Jayne Vallecillo MD> 11/22/23 [address] [facility] Work Phone: 1(370) 905-245303-15-2024 Consult note Author W Devang [facility] November 22, 2023 2:25pm Note Date/Time November 22, 2023 2:2 5pm [facility] [address] [place] [address] Cardiology Consult Note Signed Patient: Melissa Dubose MR#: [id number] : 1960 Acct:[id number] Age/Sex: 63 / F Adm Date: 4 Loc: Room: [address] [place] [address] Type: ADM IN Attending Dr: Winter Norris [...] Patient had bypass surgery in 2013 at [facility], routinely follows with Dr. Parks. She [...] in LV function specifically evaluate graft and citizen [place] and coronary anatomy for treatable targets. Review of Systems Review of Systems All other systems reviewed & are negative unless noted below or in HPI Constitutional Constitutional: Reports as per HPI, Reports fatigue and Reports weakness Cardiovascular Cardiovascular: Reports chest pain at rest, Reports dyspnea and Reports orthopnea Respiratory Respiratory: Reports as per HPI [facility] Medical History Myocardial infarction Hypertension Diabetes Surgical History History of back surgery Hx of CABG 3 vessel at [facility] Family History Mother Diabetes Paternal [...] Lymph # (Auto) 0.6 L (1.00-4.8) x10E3/uL Anderson # (Auto) 0.6 (0.0-0.8) x10E3/uL Eos # [...] bypass graft (4) Coronary artery disease involving citizen [place] coronary artery of citizen [place] heart without angina pectoris: Code(s): I25.10 - Atherosclerotic heart disease of citizen [place] coronary artery without angina pectoris (5) Myocardial injury: Code(s): I5A - Non-ischemic myocardial injury (non-traumatic) Plan Proceed with left heart catheterization plus minus revascularization Documented By: Hernan Siddiqi DO 11/22/23 1417 Signed By: <Electronically signed by Hernan Siddiqi DO> 11/22/23 14[address] [facility] Work Phone: 1(816) 951-960803-15-2024 [facility] Progress note Author Winter Norris [facility] November 22, 2023 10:05am Note Date/Time November 22, 2023 10: 01am [facility] [address] [place] [address] Hospitalist Progress Note Signed Patient: Melissa Dubose MR#: [id number] : 1960 Acct:[id number] Age/Sex: 63 / F Adm Date: 4 Loc: 4 Room: [address] [place] [address] Type: ADM IN Attending Dr: Winter Norris [...] 86% on room air upon arrival to [facility] emergency room, 4 L nasal cannula [...] <Electronically signed by Winter Norris MD> 11/22/23 [address] [facility] Work Phone: 1(112) 206-819303-14-2024 Consult note Author Justine Jacobo [facility] November 21, 2023 4:39pm Note Date/Time November 21, 2023 3:0 2pm [facility] [address] [place] [address] Cardiology Consult Note Signed Patient: Melissa Dubose MR#: [id number] : 1960 Acct:[id number] Age/Sex: 63 / F Adm Date: 4 Loc: Room: [address] [place] [address] Type: ADM IN Attending Dr: Winter Norris MD Copies to: MD Justine West MD Mazhar Rahman, MD~ Cardiology HPI History of Present Illness Consult Date: 11/21/23 HPI: Ms. Dubose is a 63 year old female with the PMH below ike presented to the [place] ER for chest pain, SOB, cough and [...] ecchymosis. Skin: Denies rashes, pruritus. [facility] Medical History Myocardial infarction Hypertension Diabetes Surgical History History of back surgery Hx of CABG 3 vessel at [facility] Family History Mother Diabetes Paternal [...] Lymph # (Auto) 0.3 L (1.00-4.8) x10E3/uL Anderson # (Auto) 0.1 (0.0-0.8) x10E3/uL Eos # [...] bypass graft (4) Coronary artery disease involving citizen [place] coronary artery of citizen [place] heart without angina pectoris: Code(s): I25.10 - Atherosclerotic heart disease of citizen [place] coronary artery without angina pectoris (5) Myocardial [...] <Electronically signed by Justine Jacobo MD> 11/21/23 132[address] [facility] Work Phone: 1([phone]) 498-337603-14-2024 Progress note Author Winter Norris [facility] November 21, 2023 12:12pm Note Date/Time November 21, 2023 12: 09pm [facility] [address] [place], [place] [id number] Event Note Signed Patient: Melissa Dubose MR#: [id number] : 1960 Acct:[id number] Age/Sex: 63 / F Adm Date: 4 Loc: 4 Room: [address] [place] [address] Type: ADM IN Attending Dr: Winter Norris [...] signed by Winter Norris MD> 11/21/23 1212 [facility] Work Phone: 1(701) 676-821303-14-2024 History and physical note Author Isaac Greenwood [facility] November 21, 2023 5:31am Note Date/Time November 21, 2023 3:0 1am [facility] [address] [place], [place] [id number] Hospitalist H&P Signed Patient: Melissa Dubose MR#: [id number] : 1960 Acct:[id number] Age/Sex: 63 / F Adm Date: 4 Loc: 4P Room: [address] [place] [address] Type: ADM IN Attending Dr: Isaac Greenwood DO Copies to: MD Karen West APRN Shawn J Warner, ~ HPI DATE OF EXAMINATION: 11/21/23 CHIEF COMPLAINT: Chest pain, sob, N/V/D, fever, cough HISTORY OF PRESENT ILLNESS: Ms. Dubose is a 63-year-old female that presented to the [facility] emergency room for complaints of chest [...] CABG-3 vessel, T2DM, HTN. EKG at [facility] emergency room shows A-fib with RVR. [...] 125 Solu-Medrol, Zofran Tamiflu. She follows with [facility] cardiology however they had no beds available. She agreed to transfer to the closest facility which is [facility]. Patient was transferred here to the progressive floor under the care of hospitalist team. Review of Systems Review of Systems Review of systems: A 10 point review of systems was obtained, negative unless noted in the HPI or below. [facility] Medical History (Updated 11/21/23 @ 03:40 by Karen Mays APRN) Myocardial infarction Hypertension Diabetes Surgical History (Updated 11/21/23 @ 03:31 by Karen Mays APRN) History of back surgery Hx of CABG 3 vessel at [facility] Family History (Updated 11/21/23 @ [...] 86% on room air upon arrival to [facility] emergency room, 4 L nasal cannula [...] signed by Isaac Greenwood DO> 11/21/23 0531 [facility] Work Phone: Evaluation + Plan note No data available for this section [facility] evaluation + Plan note Future Appointments Appointment Date:09/24/2024 01:45:00 PM Scheduled Provider: Location:[facility] Services Appointment Type:Surgery FT [facility] Evaluation note* Diagnosis Onset Date Resolution Status Acute hypoxic respiratory failure acute Atrial fibrillation acute Chest pain acute [id number] acute Diabetes acute Headache acute HFrEF (heart failure with reduced ejection fraction) acute Hypertension acute Influenza A acute Myocardial injury acute NSTEMI (non-ST elevated myocardial infarction) acute S/P CABG (coronary artery bypass graft) acute Shortness of breath acute [facility] Work Phone: Evaluation note* Diagnosis Malignant neoplasm of upper lobe, right bronchus or lung documented in this encounter [facility] Work Phone: Evaluation note* Diagnosis Malignant neoplasm of upper lobe, right bronchus or lung- Primary Malignant neoplasm of upper lobe, right bronchus or lung documented in this encounter [facility] Work Phone: Evaluation note* Diagnosis Encounter for antineoplastic radiation therapy Malignant neoplasm of right main bronchus (Multi) documented in this encounter [facility] Work Phone: Evaluation note* Diagnosis Acute hypoxic [...] right lung (Multi) documented in this encounter [facility] Work Phone: Evaluation note* Diagnosis Hypotension, unspecified [...] Unspecified essential hypertension Atrial fibrillation, unspecified type ([facility]) Unsteadiness on feet Atherosclerosis of citizen [place] coronary artery of [place] heart without angina pectoris Noninfectious gastroenteritis, unspecified type Pneumothorax, unspecified type Cigarette nicotine dependence with nicotine-induced disorder Gastroesophageal reflux disease without esophagitis Esophageal reflux Ischemic cardiomyopathy Other specified forms of chronic ischemic heart disease documented in this encounter [facility] Diagnosis Malignant neoplasm of unspecified part of right bronchus or lung ([facility])- Primary Chronic obstructive pulmonary disease, unspecified COPD type ([facility]) Acute respiratory failure with hypoxia ([facility]) Chronic heart failure, unspecified heart failure type ([facility]) Muscle weakness (generalized) Other fatigue Unsteadiness on feet Diabetic polyneuropathy associated with type 2 diabetes mellitus ([facility]) Nausea and vomiting, unspecified vomiting type documented in this encounter [facility] Discharge instructions No data available for this section [facility] InstructionsNot on filedocumented in this encounter [facility] on filedocumented in this encounter [facility]ructionsNot on filedocumented in this encounter [facility]ructionsNot on filedocumented in this encounter [facility] System[facility] note No data available for this section [facility] reason for visit Narrative* Auth/Cert Specialty Diagnoses / Procedures Referred By Contac t Referred To Contact Diagnoses Hilar Lung Mass [place] [address] [place] [address] Phone: tel: fax: [facility] [address] [facility] [place] [address] Referral ID Status Reason Start Date Expiration Date Visits Re quested Visits Authorized [id number] 1 1 [facility] Work Phone: Summary Purpose Family History No [...] respir atory failure Atrial fibrillation Chest pain [id number] Diabetes Headache HFrEF (heart failure with reduced ejection fraction) Hypertension Influenza A Myocardial injury NSTEMI (non-ST elevated myocardial infarction) S/P CABG (coronary artery bypass graft) Shortness of breath Additional Source Comments INFORMATION SOURCE (unrecogn ized section and content) DATE CREATED AUTHOR 03/05/2018 [facility] DATE CREATED AUTHOR AUTHOR'S ORGANIZ ATION 01/24/2023 [facility] DATE CREATED AUTHOR AUTHOR'S ORGANIZ ATION 06/04/2024 [facility] DATE CREATED AUTHOR AUTHOR'S ORGANIZ ATION 08/25/2024 [facility] DATE CREATED AUTHOR AUTHOR'S ORGANIZ ATION 09/22/2024 [facility] DATE CREATED AUTHOR AUTHOR'S ORGANIZ ATION 09/27/2024 [facility] DATE CREATED AUTHOR AUTHOR'S ORGANIZ ATION 09/29/2024 [facility] DATE CREATED AUTHOR AUTHOR'S ORGANIZ ATION 10/01/2024 [facility] DATE CREATED AUTHOR AUTHOR'S ORGANIZ ATION 02/13/[address] [facility] DATE CREATED AUTHOR AUTHOR'S ORGANIZ ATION 03/31/2025 [facility] DATE CREATED AUTHOR AUTHOR'S ORGANIZ ATION 04/12/2025 [facility] DATE CREATED AUTHOR AUTHOR'S ORGANIZ ATION 04/22/2025 [facility] Care Teams (unrecognized sec tion and content) Team Status: Active Member Role Status Dates Madiosn Magana MD Primary Care Provider Active Team [...] Other Provider Active Start: November 21, 2023 Laser Cutter Relationship Specialty Start Date End Date Madison Magana MD [address] [place] [id number] PCP - General Family Medicine 11/21/23 Laser Cutter Relationship Specialty Start Date End Date Madison Magana MD [address] [place] [address] PCP - General Family Medicine 11/21/23 Laser Cutter Relationship Specialty Start Date End Date Madison Magana MD [address] [place] [address] [place] [address] PCP - General Family Medicine 11/21/23 Laser Cutter Relationship Specialty Start Date End Date Madison Magana MD [address] [facility] [place] [address] PCP - General Family Medicine 11/21/23 Reason [...] 0900 1009 (Given - Provider: Patricia Aragon DATA ANALYTICS DEVELOPER)1537 (Given - Provider: Patricia Aragon DATA ANALYTICS DEVELOPER)2030 (Given - Provider: Ryan Farmer RN) 0951 (Given - Provider: Linda Francis, CHARLES)1459 (Given - Provider: Patricia Aragon DATA ANALYTICS DEVELOPER)2127 (Not Given - Provider: Vanessa Davies, PLUMBER SUPERVISOR - Reason: Patient/family refused - Comment: pt asleep) 0916 (Given - Provider: Geovanna Faulkner, PLUMBER SUPERVISOR)1500 (Due)2100 (Due) apixaban (Eliquis) tablet 5 mg [...] Sat03/28/25 at 1015 0826 (Given - Provider: Marichuy Quan RN)2030 (Given [...] 0900 1009 (Given - Provider: Patricia Aragon, DATA ANALYTICS DEVELOPER)1537 (Given - Provider: Patricia Aragon DATA ANALYTICS DEVELOPER)2040 (Not Given - Provider: Ryan Farmer RN - Reason: Medication not available) 1103 (Not Given - Provider: Patricia Aragon DATA ANALYTICS DEVELOPER - Reason: Patient not available)1459 (Given - Provider: Patricia Aragon DATA ANALYTICS DEVELOPER)2127 (Not Given - Provider: Vanessa Davies, BETH - Reason: Patient/family refused - Comment: pt asleep) 0916 (Given - Provider: Geovanna Faulkner, PLUMBER SUPERVISOR)1500 (Due)2100 (Due) spironolactone (Aldactone) tablet 12.5 mg [...] 2010, Device: High Flow Nasal Cannula (HFNC), [facility] TYPE: Bubbler/LPM Flow only, Rate in liters [...] BE BASED ON THE PRIMARY CLINICAL RECORDS. [facility]. provides no warranty or guarantee of the accuracy or completeness of information in this document.
[2025-04-28] MEDS: ALBUMIN HUMAN 25 GM/100 ML PREMIX IV (21:53)
[2025-04-28] MEDS: MIDODRINE HCL 5 MG TABLET PO (21:55)
[2025-04-28] MEDS: 0.9 % SODIUM CHLORIDE 1,000 ML 200 ML IV (21:55)
[2025-04-28] MEDS: DIGOXIN 500 MCG/2 ML AMPUL 250 MCG IV (22:02)
[2025-04-28] MEDS: APIXABAN 5 MG TABLET PO (22:02)
[2025-04-28] MEDS: PIPERACILLIN SODIUM/TAZOBACTAM 3.375 GM in 0.9 % SODIUM CHLORIDE 50 ML IV (22:09)
[2025-04-28] MEDS: ACETAMINOPHEN 325 MG TABLET 650 MG PO (22:10)
[2025-04-28 23:23] LABS: Glucose Urine UA 250 mg/dL (NEGATIVE)
[2025-04-28 23:36] LABS: Cast Seen? SEEN #/LPF (NONE SEEN); Crystals Seen? None Seen #/HPF (None Seen); Urine Culture Indicated YES-FRMC
[2025-04-29] VITALS (56 sets, daily range): BP systolic 88–145; BP diastolic 58–76; PULSE 56–108; TEMP 36.1–36.6; O2SAT 88–100
[2025-04-29] MEDS: 0.9 % SODIUM CHLORIDE 1,000 ML 200 ML IV (02:11)
[2025-04-29] MEDS: PIPERACILLIN SODIUM/TAZOBACTAM 3.375 GM in 0.9 % SODIUM CHLORIDE 50 ML IV ×3 (04:15→21:02)
[2025-04-29] MEDS: ACETAMINOPHEN 325 MG TABLET 650 MG PO ×2 (05:21→21:01)
[2025-04-29 05:30] LABS: Hematocrit 32.9 % (36.0-48.0); Hemoglobin 10.6 g/dL (12.0-16.0); Immature Granulocytes Abs Auto 0.03 10^3/uL (0.00-0.03); Immature Granulocytes Pct Auto 0.3 % (0.0-0.5); Lymphocytes Absolute Auto 1.2 10^3/uL (1.2-3.8); Mean Corpuscular HGB Conc 32.2 g/dL (29.9-35.2); Mean Corpuscular Hemoglobin 31.3 pg (26.7-34.0); Mean Corpuscular Volume 97.1 fL (81.0-99.0); Platelet Count 187 10^3/uL (150-450); Red Blood Count 3.39 10^6/uL (4.20-5.40); White Blood Count 9.2 10^3/uL (4.0-11.0)
--- NOTE | 2025-04-29 05:50 | ECG_ITS ---
[facility] Test Date: 2025-04-29 Pat Name: KAYLA HEATH Department: Room: [facility] Gender: Female Ict Help Desk Technician: : 1960 Requested By: [id number] Order Number: [id number] Reading MD: CARIE LILLY Measurements Intervals [place] Rate: 69 P: -73586 ND: -99006 QRS: 95 QRSD: 134 T: 90 QT: 412 QTc: 431 Interpretive Statements 1210 Atrial fibrillation 2450 Right bundle branch block 3434 Septal myocardial infarction, age undetermined 9150 abnormal ECG Compared to ECG 04/28/2025 16:44:20 Ventricular premature complex(es) no longer present Possible ischemia no longer present Myocardial infarct finding still present Electronically Signed On 04-30-2025 17:51:33 EDT by CARIE LILLY
[2025-04-29 05:58] LABS: Alanine Aminotransferase 20 U/L (14-59); Albumin Globulin Ratio 0.6; Albumin Level 2.2 g/dL (3.4-5.0); Alkaline Phosphatase 92 U/L (46-116); Anion Gap 12.3; Aspartate Amino Transferase 8 U/L (15-37); Blood Urea Nitrogen 19.0 mg/dL (7.0-18.0); Calcium 8.9 mg/dL (8.5-10.1); Carbon Dioxide 25.7 mmol/L (21.0-32.0); Chloride 106 mmol/L (98-107); Estimated GFR (African America 57 (>=60 mL/min/1.73m^2); Estimated GFR (Non-African Ame 47 (>=60 mL/min/1.73m^2); Globulin 3.5 g/dL; Glucose 84 mg/dL (74-106); Magnesium 1.8 mg/dL (1.8-2.4); Potassium 4.0 mmol/L (3.5-5.1); Sodium 140 mmol/L (136-145); Total Protein 5.7 g/dL (6.4-8.2)
--- NOTE | 2025-04-29 09:00 | CM.NOTE ---
Rounds made with Dr. Russ, pt recently discharged from [facility] for skilled therapy. Pt now requiring oxygen, pt discharged from [facility] on RA. Pt will be inpatient status, PT and OT will evaluate for discharge planning. No discharge today.
--- NOTE | 2025-04-29 09:17 | SWNOTE1 ---
WES received message from case management and pt left [facility] yesterday and voiced her oxygen never shower up, SW to reach out to [facility]. WES called [facility] and explained the situation, SW spoke to Erika. Eirka attempted to reach out to nurse, but no answer. She voiced she will have nurse call SW back. WES reached out to contact, Kaykay, at [facility]. Waitng to hear back. WES then received a call from TALI Correa, at [facility]. She explained that they did a wean trial with pt. She was able to do all her therapy without oxygen. She also completed getting in and out of vehicle without oxygen and she was stating at 100%. The social services analyst at [facility] spoke with pt prior to her discharging and spoke about equipment needed at home. She voiced that patient did not want oxygen, they were going to attempt to get her oxygen for her anxiety, but pt did not want it. Sunny voiced she was very anxious and would nearly have panic attacks. She also stated they were giving her IM Zofran due to her vomiting as the oral Zofran was not helping, and they were supplementing fluids. She voiced they did tell [place] all this information as well. WES asked if they had any records of MRI of brain? Sunny voiced they do not and she attempted to look in other systems as well and could not find anything. She voiced they were also suspicious of mets to the brain due to various behaviors and confusion at times. She stated pt left on day 19 as she did not have a secondary insurance and did not want to pay the co-pay. Sunny voiced we can call her with any other questions.
[2025-04-29] MEDS: APIXABAN 5 MG TABLET PO ×2 (09:28→21:02)
[2025-04-29] MEDS: MIDODRINE HCL 5 MG TABLET PO ×3 (09:28→16:43)
[2025-04-29] MEDS: PANTOPRAZOLE SODIUM 40 MG TABLET.DR PO (09:28)
--- NOTE | 2025-04-29 09:41 | SWNOTE1 ---
[facility] Pt is current with them. The nurse was in the home yesterday and was who recommended she return to hospital. She is going to call WES back after she finds out if they were working on getting her home oxygen.
--- NOTE | 2025-04-29 11:55 | PM.HP ---
HPI H&P: HPI History of Present Illness Chief complaint: LOW O2 STAT, HYPOXIA Narrative: Shortness of breath, weakness. This [facility] No chest pain. No abdominal pain. Generalized fatigue. No headaches, loss of conscious or seizure. Opioid HPI Opioid Management Most Recent Pain and Opioid Data: Last Pain Scale 4 Today, 07:25 Last Pain Intensity 0 12/04/23, 10:28 Last Pain Assessment 04/28/25, 22:00 Last MAR Pain Assessment 04/28/25, 18:15 Last ORT Total Score 0 04/28/25, 21:10 Last ORT Risk Category Low Risk 04/28/25, 21:10 Review of Systems ROS Status of ROS 10 or more systems reviewed and unremarkable except as noted in history and below [facility] Medical History (Updated 04/29/25 @ 11:57 by Niurka Russ MD) Hypotension ?I95.9 - Hypotension, unspecified (ICD-10) GI bleed ?K92.2 - Gastrointestinal hemorrhage, unspecified (ICD-10) Coronary artery disease ?I25.10 - Atherosclerotic heart disease of [place] coronary artery without angina pectoris (ICD-10) Acute HFrEF (heart failure with reduced ejection fraction) ?I50.21 - Acute systolic (congestive) heart failure (ICD-10) Leukocytosis ?D72.829 - Elevated white blood cell count, unspecified (ICD-10) Acute lower GI bleeding ?K92.2 - Gastrointestinal hemorrhage, unspecified (ICD-10) Abdominal pain ?R10.9 - Unspecified abdominal pain (ICD-10) Colitis ?K52.9 - Noninfective gastroenteritis and colitis, unspecified (ICD-10) Influenza A ?J10.1 - Influenza due to other identified influenza virus with other respiratory manifestations (ICD-10) Atrial fibrillation, new onset ?I48.91 - Unspecified atrial fibrillation (ICD-10) Heart attack ?I21.9 - Acute myocardial infarction, unspecified (ICD-10) Diabetes mellitus ?E11.9 - Type 2 diabetes mellitus without complications (ICD-10) Hypertension ?I10 - Essential (primary) hypertension (ICD-10) Surgical History (Updated 12/02/23 @ 15:02 by Misty Mays) Previous back surgery ?Z98.890 - Other specified postprocedural states (ICD-10) delivery delivered ?O82 - Encounter for delivery without indication (ICD-10) H/O left heart catheterization by ventricular puncture ?Z98.890 - Other specified postprocedural states (ICD-10) S/P triple vessel bypass ?Z95.1 - Presence of aortocoronary bypass graft (ICD-10) Family History (Updated 12/02/23 @ 15:03 by Misty Mays) Sister Family history of stroke Grandfather Family history of myocardial infarction Family history of cancer Grandmother Family history of myocardial infarction Mother Family history of hypertension Family history of diabetes mellitus Father Family history of COPD (chronic obstructive pulmonary disease) Social History (Updated 12/02/23 @ 15:04 by Misty Mays) Within the past year, how often did you have a drink containing alcohol: never Within the past year, how often did you have six or more drinks on one occasion: never Score interpretation: A score less than 3 is consistent with normal alcohol consumption. Smoking status: Former smoker Non-prescribed substance use: denies use Previous occupational history: disability Highest level of school completed/degree received: some college, no degree Are you now , , , , never or living with a partner: In a typical week, how many times do you talk on the telephone with family, friends, or neighbors: 3 or more times per week How often do you get together with friends or relatives: 3 or more times per week How often do you attend restoration or latter-day services: never Do you belong to any clubs or organizations such as restoration groups unions, fraternal or athletic groups, or school groups: no Total score: 1 Score interpretation: A score of less than or equal to 1 indicates the most socially isolated. Little interest or pleasure in doing things: not at all Feeling down, depressed, or hopeless: not at all Feel stressed/tense/nervous/anxious/difficulty sleeping: not at all Do you think of yourself as: straight/heterosexual Gender Identity: female Meds Home Medications and Allergies Home Medications ?Medication ?Instructions ?Recorded ?Confirmed ?Type ezetimibe 10 mg tablet 10 mg PO DAILY 11/20/23 04/28/25 History pantoprazole 40 mg tablet,delayed 40 mg PO DAILY 11/20/23 04/29/25 History release apixaban 5 mg tablet (Eliquis) 5 mg PO BID 11/27/23 04/28/25 History atorvastatin 40 mg tablet 40 mg PO .QHS 11/27/23 04/28/25 History albuterol sulfate 2.5 mg/3 mL 2.5 mg inhalation TID PRN 04/28/25 04/29/25 History (0.083 %) solution for nebulization shortness of breath or wheezing amlodipine 10 mg tablet 10 mg PO DAILY 04/28/25 04/29/25 History metformin 500 mg tablet 500 mg PO BID 04/28/25 04/29/25 History canagliflozin 100 mg tablet 100 mg PO DAILY 04/29/25 04/29/25 History (Invokana) ipratropium 0.5 mg-albuterol 3 mg 3 ml inhalation Q4H PRN shortness 04/29/25 04/29/25 History (2.5 mg base)/3 mL nebulization of breath or wheezing soln lidocaine 5 % topical patch 1 patch topical Q24H 04/29/25 04/29/25 History metoprolol succinate 100 mg 100 mg PO DAILY 04/29/25 04/29/25 History tablet,extended release 24 hr sacubitril 97 mg-valsartan 103 mg 1 tab PO BID 04/29/25 04/29/25 History tablet (Entresto) sitagliptin phosphate 100 mg 100 mg PO DAILY 04/29/25 04/29/25 History tablet (Januvia) spironolactone 25 mg tablet 12.5 mg PO DAILY 04/29/25 04/29/25 History tizanidine 4 mg tablet 4 mg PO .QHS 04/29/25 04/29/25 History Allergies Allergy/AdvReac Type Severity Reaction Status Date / Time No Known Drug Allergies Allergy Verified 11/20/23 21:54 Exam Narrative Exam Narrative: [pt is awake and alert. oriented to place, time and person HEENT: Pale conjunctiva and NL buccal mucosa Neck: Supple, no tenderness Endocrine: No Thyromegaly. Vascular: No JVD or carotid bruit. Lymphatic: No cervical lymphadenopathy. Chest: Diminished breath sound. Mostly on the right side Heart IRRR, no extra sound or murmur. Abd: Soft, no tenderness, no rebound and no rigidity. Increase abd girth therefore clinically I could not exclude the possibility of intra abd mass or organomegaly. LE: No cyanosis or clubbing, no varices or edema. Neuro: A A O. Nl speech, comprehension and attention. Nl and symetrical motor and tone examination through out. []] Constitutional Vital Signs, click to edit/add: Last Vital Signs Temp 97.5 F L 04/29/25 08:00 Pulse 91 H 04/29/25 10:00 Resp 19 04/29/25 08:40 BP 109/68 04/29/25 07:57 Pulse Ox 97 04/29/25 08:40 O2 Del Method CPAP 04/29/25 08:00 O2 Flow Rate 2 04/29/25 08:00 Results Labs Labs: Short CBC 04/28/25 04/29/25 Range/Units 17:16 05:12 WBC 11.2 H 9.2 (4.0-11.0) 10^3/uL Hgb 12.7 10.6 L (12.0-16.0) g/dL Hct 38.6 32.9 L (36.0-48.0) % Plt Count 237 187 (150-450) 10^3/uL BMP 04/28/25 04/29/25 17:16 04:58 Sodium 137 140 Potassium 4.2 4.0 Chloride 103 106 Carbon Dioxide 25.7 25.7 BUN 22.0 H 19.0 H Creatinine 1.29 H 1.17 H Glucose 151 H 84 Calcium 9.6 8.9 Liver Function 04/28/25 04/29/25 Range/Units 17:16 04:58 Total Bilirubin 1.3 H 1.0 (0.2-1.0) mg/dL AST 19 8 L (15-37) U/L ALT 28 20 (14-59) U/L Alkaline Phosphatase 121 H 92 (46-116) U/L Albumin 2.2 L 2.2 L (3.4-5.0) g/dL Urine 04/28/25 Range/Units 22:30 Urine Color Yellow (YELLOW) Urine Clarity Clear (CLEAR) Urine pH 5.5 (5.0-9.0) Ur Specific [place] <=1.005 A (1.005-1.025) Urine Protein Trace (NEG/TRACE) mg/dL Urine Glucose (UA) 250 A (NEGATIVE) mg/dL Assessment and Plan Assessment and Plan (1) Acute hypoxemic respiratory failure: (2) Lung cancer: (3) Shock: (4) Pleural effusion: Plan Acute hypoxic respiratory failure secondary to underlying COPD, lung cancer and pleural effusion. Place patient on oxygen. I started patient on Decadron, albuterol, Atrovent and antibiotic for possibility of obstructive pneumonia. Shock, hypotension. Likely caused by low albumin and low hydraulic pressure while patient taking aggressive blood pressure medications Hold BP meds Continue IV fluid infusion Continue albumin infusion Chronic A-fib. Patient is on Eliquis and a beta-indra however patient was hypotensive. Patient was tachycardic in the emergency room department. Patient had received a dose of digoxin Blood pressure is improving. Resume metoprolol at a lower dose Recent echocardiogram showed preserved ejection fraction Diabetes Accu-Chek with sliding scale, Lung cancer with metastasis Patient had received a radiation therapy. Patient also had a stent in the bronchus. Patient is to follow-up with medical oncology team. Ex-smoker. Patient has been a smoker for a long time up until her recent diagnosis of lung cancer. Chronic medical conditions not listed above, incidental findings seen on labs and imaging. These would need to be addressed. Could be addressed when time and condition are appropriate. Could be addressed in the outpatient setting by PCP collaboration with other needed outpatient providers.
[2025-04-29] MEDS: ALBUMIN HUMAN 25 GM/100 ML PREMIX IV (11:56)
[2025-04-29] MEDS: DEXAMETHASONE SOD PHOS 4 MG/ML VIAL IV ×2 (13:07→21:02)
--- NOTE | 2025-04-29 13:22 | SWNOTE1 ---
SW met with pt to discuss dc needs. SW did let pt know that SW has spoke with [facility] and with [facility]. Pt voiced that [facility] is not telling the truth and they had said the oxygen was supposed to be at her home when she arrived. She voiced several frustrations with [facility]. Pt did voiced it has been a long month and a half. She was only home for a day and then was sent here by home health. Pt and SW spoke about oxygen that if needed we will complete a walk test prior to discharge to see if she qualifies. She voiced she will have trouble doing a walk test, but will try. SW and pt spoke about DME in the home. She stated she has a walker, lift chair, and her daughter was working on wheelchair. She also voiced that she has medicine for breahting treatments at home, but no machine. She picked up the medicine from [facility]. SW to check in to this. Pt spoke about her time at [facility] as well. Pt's father came in room during conversation. They did let SW know she had an apt today, but will need rescheduled. Nurse and case management were aware of this and had offered to rescheduled, but pt's father had told nurse he had already done this. Pt's father now stated he had not done it yet. SW offered to have us re-schedule. Pt and father are alright with us rescheduling. Number provided to SW. SW to let med/surge manufacturing engineering technologist know. SW did ask pt if she was ambulatory at home. She and her father voiced that she has been laying down for 2 months. SW did ask what she was doing at [facility]. She stated she did walk with walker while therapy assisted. Pt's father voiced she will get better if she can get up and move. SW did ask the discharge plan from hospital? Pt and father voiced to return home and do home health. At this time no further questions or concerns. SW to follow as needed. WES provided Daniella, manufacturing engineering technologist, on med surge with follow up information and she will schedule. SW to send updated to [employer] and call [facility].
--- NOTE | 2025-04-29 13:26 | PC.NURSE ---
This RN called pharmacist Harini Mitchell at 1310 to confirm if Kathya should be held d/t getting a CT with IV contrast yesterday evening. Pharmacist Harini told RN to hold it at this time. Dr. Russ made aware.
--- NOTE | 2025-04-29 13:44 | SWNOTE1 ---
SW called [facility] in regards to Nebulizer, but they stated they are only working on a rollator for her. She advised to call [facility] and check. WES attempted to call [facility], but they are at lunch.
--- NOTE | 2025-04-29 13:45 | SWNOTE1 ---
WES faxed face sheet, ED note, H&P, and physical therapy notes to [facility].
--- NOTE | 2025-04-29 14:19 | SWNOTE1 ---
WES called [facility] and spoke to pharmacist. She voiced they do have the prescritions for medicine for nebulizer, but they do not have prescription for actual nebulizer as they do not dispense those anymore. She stated the order is from Dr. Longo. She advised that it may have went elsewhere. SW let her know that SW did attempt [facility] since pt is using them for other DME, but they do not have anything for nebulizer. WES called TALI Correa at [facility] to check on orders at discharge. She was able to look at chart and pt had denied any nebulizer treatments while at the facility due to making patient nauseous. They denied need for nebulizer at discharge as well. Sunny is going to check with pt's grand-daughter who works at facility and will call WES back.
--- NOTE | 2025-04-29 15:04 | SWNOTE1 ---
WES received a call from TALI Correa at [facility], and she had grand-daughter on phone as well. She voiced that the grand-daughter does not think she had a nebulizer at home. She also voiced there are some family dynamics and pt and pt's father did refuse things while at [facility] that were offered to her. Sunny offered to attempt to get nebulizer from [facility] and to reach out to Dr. Longo for orders. Sunny will call WES back and let her know if she is able to get it.
[2025-04-29] MEDS: INSULIN ASPART 300 UNIT/3 ML PEN SUBQ ×2 (16:42→21:28)
[2025-04-29] MEDS: METOPROLOL TARTRATE 25 MG TABLET 50 MG PO (21:02)
[2025-04-29] MEDS: OXYCODONE HCL 5 MG TABLET PO (21:28)
[2025-04-29] MEDS: ATORVASTATIN CALCIUM 40 MG TABLET PO (21:28)
[2025-04-30] VITALS (14 sets, daily range): BP systolic 119–127; BP diastolic 71–74; PULSE 65–83; TEMP 36.5–36.6; O2SAT 87–99
[2025-04-30] MEDS: PIPERACILLIN SODIUM/TAZOBACTAM 3.375 GM in 0.9 % SODIUM CHLORIDE 50 ML IV ×2 (03:05→12:03)
[2025-04-30] MEDS: ACETAMINOPHEN 325 MG TABLET 650 MG PO (05:50)
[2025-04-30 06:07] LABS: Hematocrit 32.5 % (36.0-48.0); Hemoglobin 10.2 g/dL (12.0-16.0); Mean Corpuscular HGB Conc 31.4 g/dL (29.9-35.2); Mean Corpuscular Hemoglobin 30.4 pg (26.7-34.0); Mean Corpuscular Volume 96.7 fL (81.0-99.0); Platelet Count 204 10^3/uL (150-450); Red Blood Count 3.36 10^6/uL (4.20-5.40); White Blood Count 8.4 10^3/uL (4.0-11.0)
[2025-04-30 06:29] LABS: Alanine Aminotransferase 19 U/L (14-59); Albumin Globulin Ratio 0.6; Albumin Level 2.4 g/dL (3.4-5.0); Alkaline Phosphatase 88 U/L (46-116); Anion Gap 14.6; Aspartate Amino Transferase 7 U/L (15-37); Blood Urea Nitrogen 18.0 mg/dL (7.0-18.0); Calcium 9.0 mg/dL (8.5-10.1); Carbon Dioxide 22.8 mmol/L (21.0-32.0); Chloride 107 mmol/L (98-107); Estimated GFR (African America >60 (>=60 mL/min/1.73m^2); Estimated GFR (Non-African Ame >60 (>=60 mL/min/1.73m^2); Globulin 3.7 g/dL; Glucose 208 mg/dL (74-106); Potassium 4.4 mmol/L (3.5-5.1); Sodium 140 mmol/L (136-145); Total Protein 6.1 g/dL (6.4-8.2)
--- NOTE | 2025-04-30 07:54 | ECG_ITS ---
[facility] Test Date: 2025-04-30 Pat Name: KAYLA HEATH Department: Room: [facility] Gender: Female Gasateria Attendant: : 1960 Requested By: [id number] Order Number: [id number] Reading MD: CARIE LILLY Measurements Intervals [place] Rate: 55 P: -[id number] CA: -78581 QRS: 99 QRSD: 138 T: 90 QT: 416 QTc: 404 Interpretive Statements 10257 Atrial fibrillation with aberrant conduction, or ventricular premature complexes 2330 Nonspecific intraventricular conduction block 3424 Possible septal myocardial infarction, age undetermined 7102 Moderate right axis deviation 9150 abnormal ECG Compared to ECG 04/29/2025 05:50:35 Aberrant conduction of supraventricular beat(s) now present Right-axis deviation now present Right bundle-branch block no longer present Myocardial infarct finding still present Electronically Signed On 05-03-2025 12:19:08 EDT by CARIE LILLY
--- NOTE | 2025-04-30 08:30 | CM.NOTE ---
Rounds made with Dr. Russ, pt will discharge to home today. Pt will have walk test to evaluate home oxygen needs prior to discharge. Pt will have [facility] services. Pt will f/u with Dr. Escobedo and Dr. Mccormack, will schedule prior to discharge.
[2025-04-30] MEDS: INSULIN ASPART 300 UNIT/3 ML PEN SUBQ ×2 (08:33→11:41)
[2025-04-30] MEDS: MIDODRINE HCL 5 MG TABLET PO ×2 (08:34→11:57)
[2025-04-30] MEDS: OXYCODONE HCL 5 MG TABLET PO (09:49)
[2025-04-30] MEDS: APIXABAN 5 MG TABLET PO (09:49)
[2025-04-30] MEDS: METOPROLOL TARTRATE 25 MG TABLET 50 MG PO (09:50)
[2025-04-30] MEDS: SITAGLIPTIN PHOSPHATE 50 MG TABLET 100 MG PO (09:50)
[2025-04-30] MEDS: DEXAMETHASONE SOD PHOS 4 MG/ML VIAL IV (09:50)
[2025-04-30] MEDS: PANTOPRAZOLE SODIUM 40 MG TABLET.DR PO (09:50)
--- NOTE | 2025-04-30 10:07 | SWNOTE1 ---
WES spoke with case management and pt had voiced she received a call from [facility] in [place] and they are setting up home oxygen. WES called [facility] in [place] and they voiced they are only working on wheelchair with oxygen bailey and cushion, but not on oxygen orders. WES updated case management. Pt will get a walk test today.
--- NOTE | 2025-04-30 10:48 | PT.DAILY ---
Physical Therapy Daily Note PT Daily Note/Assess Start: 04/30/25 10:46 Freq: Status: Active Protocol: Document 04/30/25 10:46 SIMBA (Rec: 04/30/25 10:48 SIMBA [id number]) Visit Not Completed Visit Not Completed Visit Not Completed Other Due to: Other Reason Visit Just finishing up phone call upon arrival. reports she Not Completed cannot participate with PT at the moment and states she needs to speak with nursing immediately about something urgent. Will follow up later today. Physical Therapy Daily Note/Assessment Time In/Time Out Time In 10:00 Time Out 10:00 Pain In Pain N/A Pain Out Pain N/A GG. Functional Abilities and Goals-Complete for Swing Bed Patients Only [id number]. Self-Care [id number]. Mobility
--- NOTE | 2025-04-30 11:56 | SWNOTE1 ---
Pt did qualify for home oxygen. SW to send script, walk test, face to face by physician once completed to [facility]. Pt is using [facility] for wheelchair and walker as well. WES also called Sunny at [place] and they are waiting to hear back from [facility] in regards to Nebulizer.
--- NOTE | 2025-04-30 11:56 | PM.DS1 ---
DS: Providers Provider Date of admission: 04/28/25 21:04 Primary care physician: Alejandro Mccormack MD Consults: 04/28/25 Consult to Dietitian Routine Reason for consultation: weight loss, poor intake, vomiting 04/29/25 Occupational Therapy Eval and Treat Routine Reason for consultation: weakness Physical Therapy Eval and Treat Routine Reason for consultation: weakness DS: Diagnosis Discharge Diagnosis (1) Acute hypoxemic respiratory failure: (2) Lung cancer: (3) Shock: (4) Pleural effusion: Plan As listed above and others that are not listed DS: Summary Hospital Course Hospital Course: Mrs. Dubose is a 64-year-old female who came in with shortness of breath and was found to have the following: Acute hypoxic respiratory failure secondary to underlying COPD, lung cancer and pleural effusion. Place patient on oxygen. I started patient on Decadron, albuterol, Atrovent and antibiotic for possibility of obstructive pneumonia. Patient is doing much better. Back to baseline state. Patient did qualify for oxygen. She was on oxygen prior to admission here when she was in [facility] and at the long term. Oxygen will be arranged for her. Patient will be discharged home on oral antibiotic and Decadron as well as aerosol bronchodilators that she has at home. Shock, hypotension. Likely caused by low albumin and low hydraulic pressure while patient taking aggressive blood pressure medications Hold BP meds Patient had received albumin and IV fluid infusion Patient was on a very aggressive blood pressure medication regimen. She was on diuretics, MRA, high dose beta-indra and Entresto due to her cardiomyopathy based on an echocardiogram completed in 2023 showing ejection fraction at 25%. Patient however had repeat echocardiogram in [place] in November 2024 which showed ejection fraction up to 55%. No strong indication to keep her on aggressive blood pressure medications specifically given her presentation with shock. Patient would be discharged on beta-indra for hypertension and A-fib rate controlled. Chronic A-fib. Patient is on Eliquis and a beta-indra however patient was hypotensive. Patient was tachycardic in the emergency room department. Patient had received a dose of digoxin Blood pressure is improving. Resumed metoprolol at a lower dose and subsequently increased to her preadmission home dose which is 100 mg daily Recent echocardiogram showed preserved ejection fraction Diabetes Accu-Chek with sliding scale Lung cancer with metastasis Patient had received a radiation therapy. Patient also had a stent in the bronchus. Patient is to follow-up with medical oncology team at [facility]. Ex-smoker. Patient has been a smoker for a long time up until her recent diagnosis of lung cancer. Chronic medical conditions not listed above, incidental findings seen on labs and imaging. These would need to be addressed. Could be addressed when time and condition are appropriate. Could be addressed in the outpatient setting by PCP collaboration with other needed outpatient providers. Patient has multiple complex medical issues as listed above and others that are not listed. All appear to be stable. Patient is feeling much better. She is back to baseline state. Blood pressure had improved. Oxygenation improved. Tachypnea had improved. I do not have any clear or strong clinical justification to extend inpatient hospitalization. Patient however will require close and frequent monitoring as well as additional work-up, investigation and therapeutic intervention that could take place from this point on post discharge. That is to prevent relapse, decompensation, rehospitalization and other medical implications. I instructed patient to ask her primary care doctor to obtain [facility] record entirely to address abnormalities seen on labs and imaging that I have and have not addressed during this hospitalization, follow-up on pending blood work, imaging and pathology is if available and to follow-up on needed medical care in the outpatient setting. Time Spent with Patient Time attestation: Total time spent providing and/or coordinating discharge services: Time spent: greater than 30 minutes Exam Narrative Exam Narrative: [pt is awake and alert. oriented to place, time and person HEENT: Pale conjunctiva and NL buccal mucosa Neck: Supple, no tenderness Endocrine: No Thyromegaly. Vascular: No JVD or carotid bruit. Lymphatic: No cervical lymphadenopathy. Chest: Diminished breath sound. Mostly on the right side Heart IRRR, no extra sound or murmur. Abd: Soft, no tenderness, no rebound and no rigidity. Increase abd girth therefore clinically I could not exclude the possibility of intra abd mass or organomegaly. LE: No cyanosis or clubbing, no varices or edema. Neuro: A A O. Nl speech, comprehension and attention. Nl and symetrical motor and tone examination through out. []] Constitutional Vital Signs, click to edit/add: Last Vital Signs Temp 97.7 F 04/30/25 03:08 Pulse 75 04/30/25 06:03 Resp 16 04/30/25 03:08 BP 127/74 04/30/25 08:34 Pulse Ox 99 04/30/25 09:28 O2 Del Method Nasal Cannula 04/30/25 09:28 O2 Flow Rate 2 04/30/25 09:28 DS: Data Data Completed and Pending Labs on day of discharge: Labs from last 24 hours 04/30/25 04/30/25 04/30/25 11:40 07:40 05:31 WBC 8.4 RBC 3.36 L Hgb 10.2 L Hct 32.5 L MCV 96.7 MCH 30.4 MCHC 31.4 RDW 13.8 Plt Count 204 MPV 9.5 Sodium 140 Potassium 4.4 Chloride 107 Carbon Dioxide 22.8 Anion Gap 14.6 BUN 18.0 Creatinine 0.82 Est GFR ( Amer) >60 Est GFR (Non-Af Amer) >60 BUN/Creatinine Ratio 22.0 Glucose 208 H Estimat Average Glucose Hemoglobin A1c Calcium 9.0 Total Bilirubin 0.6 AST 7 L ALT 19 Alkaline Phosphatase 88 Total Protein 6.1 L Albumin 2.4 L Globulin 3.7 Albumin/Globulin Ratio 0.6 POC Glucose 210 H 197 H 04/29/25 04/29/25 04/29/25 21:27 16:32 05:12 WBC RBC Hgb Hct MCV MCH MCHC RDW Plt Count MPV Sodium Potassium Chloride Carbon Dioxide Anion Gap BUN Creatinine Est GFR ( Amer) Est GFR (Non-Af Amer) BUN/Creatinine Ratio Glucose Estimat Average Glucose 140 Hemoglobin A1c 6.5 H Calcium Total Bilirubin AST ALT Alkaline Phosphatase Total Protein Albumin Globulin Albumin/Globulin Ratio POC Glucose 246 H 172 H Preliminary micro results at discharge 04/28/25 22:30 Urine Culture - Preliminary Urine,Clean Catch Pending - Specimen sent to [facility] Discharge Plan Discharge Disposition: Home, Self-Care Discharge Medications: New docusate sodium 100 mg Capsule 100 mg PO BID PRN (Reason: Constipation) Qty: 30 1RF sennosides-docusate sodium [Senna Plus] 8.6-50 mg Tablet 1 tab PO QD PRN (Reason: Constipation) Qty: 60 0RF amoxicillin-pot clavulanate 875-125 mg tablet 1 tab PO BID Qty: 14 0RF dexamethasone 6 mg tablet 6 mg PO DAILY Qty: 7 0RF Continued Eliquis 5 mg tablet 5 mg PO BID atorvastatin 40 mg tablet 40 mg PO .QHS metformin 500 mg tablet 500 mg PO BID albuterol sulfate 2.5 mg /3 mL (0.083 %) solution for nebulization 2.5 mg inhalation TID PRN (Reason: shortness of breath or wheezing) ipratropium-albuterol 0.5 mg-3 mg(2.5 mg base)/3 mL solution for nebulization 3 ml INHALATION Q4H PRN (Reason: shortness of breath or wheezing) metoprolol succinate 100 mg tablet extended release 24 hr 100 mg PO DAILY Januvia 100 mg tablet 100 mg PO DAILY lidocaine 5 % adhesive patch,medicated 1 patch topical Q24H Rx Instructions: ON FOR 12 HOURS OFF FOR 12 HOURS pantoprazole 40 mg tablet,delayed release (DR/EC) 40 mg PO DAILY Qty: 30 2RF Discontinued ezetimibe 10 mg tablet 10 mg PO DAILY amlodipine 10 mg tablet 10 mg PO DAILY spironolactone 25 mg tablet 12.5 mg PO DAILY sacubitril-valsartan [Entresto] 97-103 mg tablet 1 tab PO BID Invokana 100 mg tablet 100 mg PO DAILY tizanidine 4 mg tablet 4 mg PO .QHS Print Language: Malagasy Activity Restrictions/Additional Instructions: I may not have addressed or treated all of your medical illnesses or the abnormal blood work or imaging studies during this hospitalization. Please ask your primary care provider to obtain [facility] records entirely to follow up on all of the abnormal physical, laboratory, and imaging findings that I have not addressed. Please return back to the emergency room or seek medical attention if your symptoms worsen or return. Check your blood sugar 3 times a day before meals. Document these numbers on a blood glucose log and bring them with you to your follow-up appointment with your primary care doctor. Communicate with your primary care doctor or research computing specialist if your blood sugar is under 100 or above 300 on 2 consecutive checks. Communicate with your primary care doctor or research computing specialist if you have any questions about your diabetes medications. Signs of a low blood sugar include sweating, racing heart, dizziness and/or weakness. Check your blood sugar if you have any of the symptoms. I stopped a lot of blood pressure medications that you are taking before. Please follow the new medication regimen as listed on this document. Discharging you from [facility] does not mean that your medical care ends here and now. You may still need additional monitoring, work up, investigation, and treatment plan to be handled from this point on by out patient providers including your primary care provider and specialists. For any medication question, please contact your retail pharmacist or your primary care provider. Thank you. Forms: Portal Instructions Follow Up Appointments: [facility], Monday May 05, 2025 at [address] [place] [address] Dr Mccormack Sat. @ 2:00 phone [phone]
--- NOTE | 2025-04-30 14:22 | SWNOTE1 ---
WES called [facility] and spoke to Nury. Nury voiced she just submitted the oxygen referral to insurance and will call WES once she gets confirmation.
--- NOTE | 2025-04-30 14:53 | PT.DAILY ---
Physical Therapy Daily Note PT Daily Note/Assess Start: 04/30/25 10:46 Freq: Status: Active Protocol: Document 04/30/25 14:44 SIMBA (Rec: 04/30/25 14:53 SIMBA [id number]) Physical Therapy Daily Note/Assessment Time In/Time Out Time In 14:00 Time Out 14:25 Pain In Pain N/A Pain Out Pain N/A Subjective Subjective Pt supine upon arrival. Agrees to PT with some motivation. Therapeutic Exercise Time Therapeutic Exercise 8 Minutes (minutes) Therapeutic Exercise 1 Units Therapeutic Exercise Treatment Therapeutic Exercise Bilat LE strengthening ex complete while sitting EOB Treatment with 1 UE support to maintain upright posture. Therapeutic Activity Time Therapeutic Activity 15 Minutes (minutes) Therapeutic Activity 1 Units Therapeutic Activity Treatment Bed Mobility Ability Standby Assistance Chair Transfer Standby Assistance Ability Therapeutic Activity Supine>sit SBA with increased time and use of handrail. Comments Pt sits EOB explaining to therapist that she will be fine when she gets home as long as her dad is able to build a box to go under her lift chair to make it higher/easier to get out of. Pt is educated that from a physical therapy stand point we would want her to practice from various heights to prompt strength/ function to make the transfers easier with practice. Pt is defensive and claims I do not understand what he is saying. PIT BOSS spends about 5 min trying to re-educate patient our goal would be to make her stronger but not against modifications if needed, as long as they're safe and appropriate. Pt agrees to standing attempts from EOB at various heights - starting at 25 inches down to 21 inches before needing assistance. Increased time and effort needed form lower surface but no outside support. Stands at RW after ea attempt. Pt then returned herself to supine SBA. CAll light is within reach and needs met. Total Physical Therapy Time Total Therapy 23 Minutes Total Physical 2 Therapy Units Summary Daily Note Summary Able to sit>stand from various surface levels without outside support - as low as 21 inches. Standard chair height is typically 17-19 inches - pt would not be able to achieve this without outside support at this time.
--- NOTE | 2025-04-30 15:47 | SWNOTE1 ---
WES spoke with Nury at [facility] and pt is all set with home oxygen at 2 liters. SW went to pt's room and pt will need to provide credit card on file as she will have co-pay amount due to not having secondary. Pt is alright with this. Pt called daughter and got the card information. SW provided card information to Nury. Pt would like the payment of $44.99 to come out on the . Nury voiced understanding. WES advised pt to call [facility] once she is home. WES wrote down the number for pt and told her to call right away as the tank will only last a few hours. She voiced understanding. WES also advised pt that SW spoke to Sunny again at [place] and she is still working on Nebulizer. She voiced they will reach out to pt's niece once they get it figured out and possibly lend her one of there nebulizers. At this time pt has no further needs. WES faxed dc summary, dc med rec, CRF, and PT/OT notes from her stay to [facility].
--- NOTE | 2025-04-30 16:10 | PC.NURSE ---
Patient discharging home with home health. During discharge instructions patient shared concerns about medications that were ordered to be stopped by Dr. Russ, this RN talked to Dr. Russ about the concerns and he stated they were stopped due to hypotension when she arrived in the ER. Patient was also requesting subcutaneous zofran, which was expressed to Dr. Russ and he did not feel comfortable ordering this. Patient was informed that Dr. Russ did want those medications stopped and patient verbalized understanding. She stated she would call her shaker repairer about them when she got home. Patients IV was removed, she was wheeled down in a wheelchair and helped into her father's car.
--- NOTE | 2025-04-30 18:25 | PC.NURSE ---
Patient called and stated the oxygen company she was told to call was closed for the weekend, Marilou bending shed worker called, she stated she was going to call the oxygen company.
--- NOTE | 2025-05-04 14:49 | CM.DCFOLLOWU ---
Person spoke with: patient How are you feeling? voiced she is not feeling well. No pain meds at discharge. Has no transport to get to F/U with Cancer doctor or PCP tomorrow. She can't get in wheelchair as it is too low and will be stuck in it for 3 days until her grandsons come help her. WES advised [facility] or trips. She said [facility] does not transport anymore and [facility] had to call 24 hour in advance. SW did ask how she was transported before. She said she would get in and out of her father's jeep. There is not other transport company in this area that will assist. [facility] would only do home visits for people that live in [place] How is your pain? having pain, but Dr. Mccormack has to see her in office before prescribing pain medication Did you understand your discharge instructions?yes Do you have any questions about your discharge instructions?no Were you given any prescriptions at discharge?yes Were you able to get your prescriptions filled?yes Do you understand how to take your medications as ordered?yes Do you have any questions about your follow up appointment and do you plan to keep your follow up appointment? See above note Is there anything else that you would like to discuss?no Questions/Comments/Concerns/Other: none
== END 2025-04-30 16:10 | disposition home health service (06) | DRG 189 ==
LOC: ER 19:20 → MS 21:39
PROVIDERS: Emergency Medicine; Admitting Provider Internal Medicine; Emergency Provider Emergency Medicine; PCP Family Medicine; Visit Provider Internal Medicine
DX: J96.01 Acute respiratory failure with hypoxia (principal); J18.8 Other pneumonia, unspecified organism; C34.90 Malignant neoplasm of unspecified part of unspecified bronchus or lung; R57.9 Shock, unspecified; I48.20 Chronic atrial fibrillation, unspecified; C79.9 Secondary malignant neoplasm of unspecified site; I50.20 Unspecified systolic (congestive) heart failure; J44.0 Chronic obstructive pulmonary disease with (acute) lower respiratory infection; I43 Cardiomyopathy in diseases classified elsewhere; Z79.01 Long term (current) use of anticoagulants; E11.9 Type 2 diabetes mellitus without complications; Z79.84 Long term (current) use of oral hypoglycemic drugs; Z87.891 Personal history of nicotine dependence; I11.0 Hypertensive heart disease with heart failure; Z99.81 Dependence on supplemental oxygen
CPT/HCPCS: 36415; 71045; 71275; 80053; 81001; 82948; 83036; 83735; 84100; 84484; 85025; 85027; 85610; 87040; 87086; 93005; 94761; 96361; 96365; 96366; 96375; 96376; 97110; 97162; 97165; 97530; 97535; 99285; J1100; J1160; J2270; J2405; J2543; J3475; P9046; Q9967

== ENCOUNTER 2025-05-12 17:51 | Emergency (ER) | payer MEDICARE, SELFPAY ==
[2025-05-12] VITALS (36 sets, daily range): BP systolic 102–121; BP diastolic 60–81; PULSE 73–99; TEMP 36.8; O2SAT 95–100; BMI 30.4
--- NOTE | 2025-05-12 17:56 | ECG_ITS ---
[facility] Test Date: 2025-05-12 Pat Name: KAYLA HEATH Department: Room: - Gender: Female Plans Examiner: : 1960 Requested By: [id number] Order Number: [id number] Reading MD: CARIE LILLY Measurements Intervals [place] Rate: 94 P: -[id number] OR: -[id number] QRS: 98 QRSD: 116 T: 150 QT: 348 QTc: 400 Interpretive Statements 97489 Atrial fibrillation with aberrant conduction, or ventricular premature complexes 2440 Incomplete right bundle branch block [address] ST Twave abnormality, possible inferior ischemia or digitalis effect 7102 Moderate right axis deviation 8102 Low QRS voltage in chest leads 9150 abnormal ECG Compared to ECG 04/30/2025 07:54:47 Ventricular premature complex(es) now present Incomplete right bundle-branch block now present ST (T wave) deviation now present Possible ischemia now present Low QRS voltage now present Myocardial infarct finding no longer present Electronically Signed On 05-13-2025 16:02:24 EDT by CARIE LILLY
--- NOTE | 2025-05-12 17:59 | ED.GENADUL1 ---
HPI HPI - General Adult General Chief complaint: Weakness Stated complaint: WEAKNESS Time Seen by Provider: 05/12/25 17:55 Source: patient Mode of arrival: ambulance Limitations: no limitations Related Data Home Medications ?Medication ?Instructions ?Recorded ?Confirmed apixaban 5 mg tablet (Eliquis) 5 mg PO BID 11/27/23 04/28/25 atorvastatin 40 mg tablet 40 mg PO .QHS 11/27/23 04/28/25 albuterol sulfate 2.5 mg/3 mL 2.5 mg inhalation TID PRN 04/28/25 04/29/25 (0.083 %) solution for nebulization shortness of breath or wheezing metformin 500 mg tablet 500 mg PO BID 04/28/25 04/29/25 ipratropium 0.5 mg-albuterol 3 mg 3 ml inhalation Q4H PRN shortness 04/29/25 04/29/25 (2.5 mg base)/3 mL nebulization of breath or wheezing soln lidocaine 5 % topical patch 1 patch topical Q24H 04/29/25 04/29/25 metoprolol succinate 100 mg 100 mg PO DAILY 04/29/25 04/29/25 tablet,extended release 24 hr sitagliptin phosphate 100 mg 100 mg PO DAILY 04/29/25 04/29/25 tablet (Januvia) Previous Rx's ?Medication ?Instructions ?Recorded amoxicillin 875 mg-potassium 1 tab PO BID #14 tabs 04/30/25 clavulanate 125 mg tablet dexamethasone 6 mg tablet 6 mg PO DAILY #7 tabs 04/30/25 docusate sodium 100 mg capsule 100 mg PO BID PRN Constipation #30 04/30/25 caps pantoprazole 40 mg tablet,delayed 40 mg PO DAILY #30 tabs 04/30/25 release sennosides 8.6 mg-docusate sodium 1 tab PO QD PRN Constipation #60 04/30/25 50 mg tablet (Senna Plus) tabs Allergies Allergy/AdvReac Type Severity Reaction Status Date / Time No Known Drug Allergies Allergy Verified 11/20/23 21:54 Opioid HPI Opioid Management Most Recent Opioid Data: Last Pain Scale 6 04/30/25, 16:00 Last Pain Intensity 0 12/04/23, 10:28 Last ORT Total Score 0 04/28/25, 21:10 Last ORT Risk Category Low Risk 04/28/25, 21:10 [facility] Medical History (Updated 05/04/25 @ 00:00 by ) Hypotension ?I95.9 - Hypotension, unspecified (ICD-10) GI bleed ?K92.2 - Gastrointestinal hemorrhage, unspecified (ICD-10) Coronary artery disease ?I25.10 - Atherosclerotic heart disease of [place] coronary artery without angina pectoris (ICD-10) Acute HFrEF (heart failure with reduced ejection fraction) ?I50.21 - Acute systolic (congestive) heart failure (ICD-10) Leukocytosis ?D72.829 - Elevated white blood cell count, unspecified (ICD-10) Acute lower GI bleeding ?K92.2 - Gastrointestinal hemorrhage, unspecified (ICD-10) Abdominal pain ?R10.9 - Unspecified abdominal pain (ICD-10) Colitis ?K52.9 - Noninfective gastroenteritis and colitis, unspecified (ICD-10) Influenza A ?J10.1 - Influenza due to other identified influenza virus with other respiratory manifestations (ICD-10) Atrial fibrillation, new onset ?I48.91 - Unspecified atrial fibrillation (ICD-10) Heart attack ?I21.9 - Acute myocardial infarction, unspecified (ICD-10) Diabetes mellitus ?E11.9 - Type 2 diabetes mellitus without complications (ICD-10) Hypertension ?I10 - Essential (primary) hypertension (ICD-10) Surgical History (Updated 12/02/23 @ 15:02 by Misty Mays) Previous back surgery ?Z98.890 - Other specified postprocedural states (ICD-10) delivery delivered ?O82 - Encounter for delivery without indication (ICD-10) H/O left heart catheterization by ventricular puncture ?Z98.890 - Other specified postprocedural states (ICD-10) S/P triple vessel bypass ?Z95.1 - Presence of aortocoronary bypass graft (ICD-10) Family History (Updated 12/02/23 @ 15:03 by Misty Mays) Sister Family history of stroke Grandfather Family history of myocardial infarction Family history of cancer Grandmother Family history of myocardial infarction Mother Family history of hypertension Family history of diabetes mellitus Father Family history of COPD (chronic obstructive pulmonary disease) Social History (Updated 12/02/23 @ 15:04 by Misty Mays) Within the past year, how often did you have a drink containing alcohol: never Within the past year, how often did you have six or more drinks on one occasion: never Score interpretation: A score less than 3 is consistent with normal alcohol consumption. Smoking status: Former smoker Non-prescribed substance use: denies use Previous occupational history: disability Highest level of school completed/degree received: some college, no degree Are you now , , , , never or living with a partner: In a typical week, how many times do you talk on the telephone with family, friends, or neighbors: 3 or more times per week How often do you get together with friends or relatives: 3 or more times per week How often do you attend muslim or gnosticism services: never Do you belong to any clubs or organizations such as muslim groups unions, [employer] or athletic groups, or school groups: no Total score: 1 Score interpretation: A score of less than or equal to 1 indicates the most socially isolated. Little interest or pleasure in doing things: not at all Feeling down, depressed, or hopeless: not at all Feel stressed/tense/nervous/anxious/difficulty sleeping: not at all Do you think of yourself as: straight/heterosexual Gender Identity: female Exam Constitutional Vital Signs, click to edit/add: Last Vital Signs Temp 98.2 F 05/12/25 17:52 Pulse 91 H 05/12/25 17:52 Resp 18 05/12/25 17:52 BP 121/69 05/12/25 17:52 Pulse Ox 98 05/12/25 17:58 O2 Del Method Nasal Cannula 05/12/25 17:58 O2 Flow Rate 2 05/12/25 17:58 Course Vital Signs Vital signs: Vital Signs Temperature 98.2 F 05/12/25 17:52 Pulse Rate 91 H 05/12/25 17:52 Respiratory Rate 18 05/12/25 17:52 Blood Pressure 121/69 05/12/25 17:52 Pulse Oximetry 98 05/12/25 17:52 Oxygen Delivery Method Nasal Cannula 05/12/25 17:52 Oxygen Delivery Flow Rate 2 05/12/25 17:52 Temperature 98.2 F 05/12/25 17:52 Pulse Rate 91 H 05/12/25 17:52 Respiratory Rate 18 05/12/25 17:52 Blood Pressure 121/69 05/12/25 17:52 Pulse Oximetry 98 05/12/25 17:58 Oxygen Delivery Method Nasal Cannula 05/12/25 17:58 Oxygen Delivery Flow Rate 2 05/12/25 17:58 Discharge Plan Discharge Chief Complaint: Weakness Prescriptions / Home Meds: No Action Eliquis 5 mg tablet 5 mg PO BID atorvastatin 40 mg tablet 40 mg PO .QHS metformin 500 mg tablet 500 mg PO BID albuterol sulfate 2.5 mg /3 mL (0.083 %) solution for nebulization 2.5 mg inhalation TID PRN (Reason: shortness of breath or wheezing) ipratropium-albuterol 0.5 mg-3 mg(2.5 mg base)/3 mL solution for nebulization 3 ml INHALATION Q4H PRN (Reason: shortness of breath or wheezing) metoprolol succinate 100 mg tablet extended release 24 hr 100 mg PO DAILY Januvia 100 mg tablet 100 mg PO DAILY lidocaine 5 % adhesive patch,medicated 1 patch topical Q24H Rx Instructions: ON FOR 12 HOURS OFF FOR 12 HOURS docusate sodium 100 mg Capsule 100 mg PO BID PRN (Reason: Constipation) Qty: 30 1RF sennosides-docusate sodium [Senna Plus] 8.6-50 mg Tablet 1 tab PO QD PRN (Reason: Constipation) Qty: 60 0RF pantoprazole 40 mg tablet,delayed release (DR/EC) 40 mg PO DAILY Qty: 30 2RF amoxicillin-pot clavulanate 875-125 mg tablet 1 tab PO BID Qty: 14 0RF dexamethasone 6 mg tablet 6 mg PO DAILY Qty: 7 0RF Print Language: Khmer Referrals: Alejandro Mccormack MD [Primary Care Provider, Family Practice] - 1 week
--- NOTE | 2025-05-12 18:02 | ED.GENADUL1 ---
HPI HPI - General Adult General Chief complaint: Weakness Stated complaint: WEAKNESS Time Seen by Provider: 05/12/25 17:55 Source: patient Mode of arrival: ambulance Limitations: no limitations History of Present Illness HPI narrative: Patient is a 64-year-old female with a history of recently diagnosed right-sided metastatic lung cancer (R Hilar Mass that invades the mediastinum) on baseline 2 L oxygen that presents to the emergency department via EMS with main complaint of left upper extremity weakness. Patient notes that this did start on Saturday, 5 days ago, and has been limiting her activities of daily living and causing her to use a bedpan instead of being able to be independent and use the bathroom. She denies any trauma or falls. She is having home health come to her house who came today and called EMS for a stroke alert. Patient is on Eliquis for A-fib. On arrival she can activly move the left upper extremity but it is weak, she actively moves the left lower extremity but this is also weak. The right sided extremities have full strength. She states that she recently had a stent placed and is scheduled to start Keytruda on Saturday and is very concerned about being admitted as she has already missed the start of this medication as she was admitted 2 weeks ago on 04/28/25 for Acute Respiratory failure. Related Data Home Medications ?Medication ?Instructions ?Recorded ?Confirmed apixaban 5 mg tablet (Eliquis) 5 mg PO BID 11/27/23 05/12/25 atorvastatin 40 mg tablet 40 mg PO .QHS 11/27/23 05/12/25 albuterol sulfate 2.5 mg/3 mL 2.5 mg inhalation TID PRN 04/28/25 05/12/25 (0.083 %) solution for nebulization shortness of breath or wheezing metformin 500 mg tablet 500 mg PO BID 04/28/25 05/12/25 ipratropium 0.5 mg-albuterol 3 mg 3 ml inhalation Q4H PRN shortness 04/29/25 05/12/25 (2.5 mg base)/3 mL nebulization of breath or wheezing soln lidocaine 5 % topical patch 1 patch topical Q24H 04/29/25 05/12/25 metoprolol succinate 100 mg 100 mg PO DAILY 04/29/25 05/12/25 tablet,extended release 24 hr sitagliptin phosphate 100 mg 100 mg PO DAILY 04/29/25 05/12/25 tablet (Januvia) celecoxib 100 mg capsule 100 mg PO Q24H 05/12/25 05/12/25 ketoconazole 2 % topical cream 1 applic topical BID 05/12/25 05/12/25 oxycodone-acetaminophen 5 mg-325 1 tab PO Q6H PRN pain 05/12/25 05/12/25 mg tablet potassium chloride 10 mEq 10 meq PO DAILY 05/12/25 05/12/25 capsule,extended release prochlorperazine maleate 5 mg 5 mg PO Q6H 05/12/25 05/12/25 tablet promethazine 25 mg tablet 25 mg PO TID PRN nausea and 05/12/25 05/12/25 vomiting Previous Rx's ?Medication ?Instructions ?Recorded docusate sodium 100 mg capsule 100 mg PO BID PRN Constipation #30 04/30/25 caps pantoprazole 40 mg tablet,delayed 40 mg PO DAILY #30 tabs 04/30/25 release sennosides 8.6 mg-docusate sodium 1 tab PO QD PRN Constipation #60 04/30/25 50 mg tablet (Senna Plus) tabs Allergies Allergy/AdvReac Type Severity Reaction Status Date / Time No Known Drug Allergies Allergy Verified 11/20/23 21:54 Opioid HPI Opioid Management Most Recent Opioid Data: Last Pain Scale 8 Today, 20:59 Last Pain Intensity 0 12/04/23, 10:28 Last MAR Pain Assessment Today, 19:29 Last ORT Total Score 0 04/28/25, 21:10 Last ORT Risk Category Low Risk 04/28/25, 21:10 Review of Systems ROS Status of ROS 10 or more systems reviewed and unremarkable except as noted in history and below [facility] Medical History (Updated 05/12/25 @ 21:19 by MOON Morrow) Hypotension ?I95.9 - Hypotension, unspecified (ICD-10) GI bleed ?K92.2 - Gastrointestinal hemorrhage, unspecified (ICD-10) Coronary artery disease ?I25.10 - Atherosclerotic heart disease of [place] coronary artery without angina pectoris (ICD-10) Acute HFrEF (heart failure with reduced ejection fraction) ?I50.21 - Acute systolic (congestive) heart failure (ICD-10) Leukocytosis ?D72.829 - Elevated white blood cell count, unspecified (ICD-10) Acute lower GI bleeding ?K92.2 - Gastrointestinal hemorrhage, unspecified (ICD-10) Abdominal pain ?R10.9 - Unspecified abdominal pain (ICD-10) Colitis ?K52.9 - Noninfective gastroenteritis and colitis, unspecified (ICD-10) Influenza A ?J10.1 - Influenza due to other identified influenza virus with other respiratory manifestations (ICD-10) Atrial fibrillation, new onset ?I48.91 - Unspecified atrial fibrillation (ICD-10) Heart attack ?I21.9 - Acute myocardial infarction, unspecified (ICD-10) Diabetes mellitus ?E11.9 - Type 2 diabetes mellitus without complications (ICD-10) Hypertension ?I10 - Essential (primary) hypertension (ICD-10) Surgical History (Updated 12/02/23 @ 15:02 by Misty Mays) Previous back surgery ?Z98.890 - Other specified postprocedural states (ICD-10) delivery delivered ?O82 - Encounter for delivery without indication (ICD-10) H/O left heart catheterization by ventricular puncture ?Z98.890 - Other specified postprocedural states (ICD-10) S/P triple vessel bypass ?Z95.1 - Presence of aortocoronary bypass graft (ICD-10) Family History (Updated 12/02/23 @ 15:03 by Misty Mays) Sister Family history of stroke Grandfather Family history of myocardial infarction Family history of cancer Grandmother Family history of myocardial infarction Mother Family history of hypertension Family history of diabetes mellitus Father Family history of COPD (chronic obstructive pulmonary disease) Social History (Updated 12/02/23 @ 15:04 by Misty Mays) Within the past year, how often did you have a drink containing alcohol: never Within the past year, how often did you have six or more drinks on one occasion: never Score interpretation: A score less than 3 is consistent with normal alcohol consumption. Smoking status: Former smoker Non-prescribed substance use: denies use Previous occupational history: disability Highest level of school completed/degree received: some college, no degree Are you now , , , , never or living with a partner: In a typical week, how many times do you talk on the telephone with family, friends, or neighbors: 3 or more times per week How often do you get together with friends or relatives: 3 or more times per week How often do you attend orthodoxy or orthodoxy services: never Do you belong to any clubs or organizations such as orthodoxy groups unions, fraternal or athletic groups, or school groups: no Total score: 1 Score interpretation: A score of less than or equal to 1 indicates the most socially isolated. Little interest or pleasure in doing things: not at all Feeling down, depressed, or hopeless: not at all Feel stressed/tense/nervous/anxious/difficulty sleeping: not at all Do you think of yourself as: straight/heterosexual Gender Identity: female Exam Narrative Exam Narrative: General: No distress, age-appropriate, on 2L NC (baseline) Skin: Warm, dry, no pallor. No rash. Head: Normocephalic, atraumatic. Neck: Supple, non-tender. Eye: Pupils are equal, round and EOMI. No scleral icterus. Ears, Nose, Mouth, and Throat: No nasal mucosal hypertrophy. Oral mucosa is moist, no posterior oropharynx erythema, uvula is mid-line Cardiovascular: Regular Rate and Rhythm without murmur, gallop or rub. Respiratory: No accessory muscle use or respiratory distress. Lungs are clear to auscultation, no wheezing, rales or rhonchi Chest Wall: no tenderness, well healed midline scar Back: No midline thoracic or lumbar vertebral tenderness. Musculoskeletal: Full ROM of all extremities, no calf or popliteal tenderness GI: Abdomen is soft, non-distended, non tender to palpation. No masses appreciated. No rebound, guarding, or rigidity noted. Neurological: A&O x4. No cranial nerve dysfunction observed. No truncal ataxia. Moves all extremities actively but LUE/LLE are weak 3/5 LLE and -2/5 LUE. Sensation intact and equal bilaterally. Psychiatric: Cooperative and interactive. Normal mood and affect. Constitutional Vital Signs, click to edit/add: Last Vital Signs Temp 98.2 F 05/12/25 17:52 Pulse 92 H 05/12/25 18:10 Resp 16 05/12/25 18:10 BP 121/69 05/12/25 17:52 Pulse Ox 98 05/12/25 18:10 O2 Del Method Nasal Cannula 05/12/25 17:58 O2 Flow Rate 2 05/12/25 17:58 Neuro Common normals: oriented x3 Speech: speech normal Gait (neuro): unable to assess gait Course Vital Signs Vital signs: Vital Signs Blood Pressure 121/69 05/12/25 17:48 Temperature 98.2 F 05/12/25 17:52 Pulse Rate 92 H 05/12/25 18:10 Respiratory Rate 16 05/12/25 18:10 Blood Pressure 121/69 05/12/25 17:52 Pulse Oximetry 98 05/12/25 18:10 Oxygen Delivery Method Nasal Cannula 05/12/25 17:58 Oxygen Delivery Flow Rate 2 05/12/25 17:58 Medical Decision Making MDM Narrative Medical decision making narrative: 64-year-old female with recently diagnosed metastatic right-sided lung cancer presents with 5 days of left upper extremity weakness. She denies any recent trauma/falls. She does take Eliquis for history of A-fib. She is now on 2 L O2 nasal cannula at baseline now since her lung cancer diagnosis. [facility] in her lung as her right main bronchus had collapse from the hilar mass and has been having a home health nurse come to her house. They visited today and noticed her left arm and called EMS. On arrival she was alert and oriented x 4, she does actively move the left upper extremity but active ROM is greatly decreased, strength is 2/5 throughout the LUE. She has normal gaze, no visual loss or complaints, no facial palsy, no limb ataxia, no sensory changes to her extremities, no aphasia, no dysarthria. She does have some milder weakness in the left lower extremity that she states has been there since her open heart surgery. LLE strength is 3/5. She believes this to be at that baseline today. CT head without contrast ordered as subacute stroke is suspected. Patient complaining of headache and chest pain that she has had since stent was placed. 50 mcg of fentanyl and [address] results received and reviewed with patient, 1.7 cm intraparenchymal hematoma in the high convexity in the right frontal lobe. Localized edema and mass effect. Results printed and given to patient. Patient remains alert and oriented. 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 Transfer was initiated at 1953 and I did speak with Dr. Little, Neurosurgeon, at 2100 who will have patient admitted to the Medical ICU at [facility] and agrees she will likely need an MRI and close monitoring given her medical history. He recommends holding Eliquis, but states she does not need reversal. Received call back that patient has a MICU bed and accepting physician will be Dr Roe. Patient's mental status did not changed during her course in the ED here. Vitals remained stable. Patient will be transferred to [facility] via EMS on her baseline 2L NC. Differential Diagnosis Differential Diagnosis: Hemorrhagic stroke, metastatic tumor, Spinal stenosis Medical Records Medical records reviewed: Yes I reviewed the patient's medical records Lab Data Lab results reviewed: Yes I reviewed the patient's lab results Labs: Lab Results 05/12/25 05/12/25 Range/Units 17:57 20:00 WBC 14.1 H (4.0-11.0) 10^3/uL RBC 3.89 L (4.20-5.40) 10^6/uL Hgb 12.1 (12.0-16.0) g/dL Hct 37.6 (36.0-48.0) % MCV 96.7 (81.0-99.0) fL MCH 31.1 (26.7-34.0) pg MCHC 32.2 (29.9-35.2) g/dL RDW 14.8 (11.0-15.0) % Plt Count 238 (150-450) 10^3/uL MPV 9.1 L (9.5-13.5) fL Neut % (Auto) 80.3 H (43.0-75.0) % Lymph % (Auto) 10.2 L (20.5-60.0) % Gentry % (Auto) 6.7 (1.7-12.0) % Eos % (Auto) 1.8 (0.9-7.0) % Baso % (Auto) 0.2 (0.2-2.0) % Neut # (Auto) 11.3 H (1.4-6.5) 10^3/uL Lymph # (Auto) 1.4 (1.2-3.8) 10^3/uL Gentry # (Auto) 0.9 H (0.3-0.8) 10^3/uL Eos # (Auto) 0.3 (0.0-0.7) 10^3/uL Baso # (Auto) 0.0 (0.0-0.1) 10^3/uL Abs Immat Gran (auto) 0.11 H (0.00-0.03) 10^3/uL Imm/Tot Granulo (auto) 0.8 H (0.0-0.5) % Sodium 140 (136-145) mmol/L Potassium 4.8 (3.5-5.1) mmol/L Chloride 105 (98-107) mmol/L Carbon Dioxide 26.4 (21.0-32.0) mmol/L Anion Gap 13.4 BUN 19.0 H (7.0-18.0) mg/dL Creatinine 0.73 (0.55-1.02) mg/dL Est GFR ( Amer) >60 (>=60 mL/min/1.73m^2) Est GFR (Non-Af Amer) >60 (>=60 mL/min/1.73m^2) BUN/Creatinine Ratio 26.0 Glucose 171 H (74-106) mg/dL Calcium 8.9 (8.5-10.1) mg/dL Troponin I High Sens 8.7 (4.0-51.3) pg/mL Urine Color Yellow (YELLOW) Urine Clarity Clear (CLEAR) Urine pH 5.5 (5.0-9.0) Ur Specific [place] 1.020 (1.005-1.025) Urine Protein Negative (NEG/TRACE) mg/dL Urine Glucose (UA) Negative (NEGATIVE) mg/dL Urine Ketones Trace A (NEGATIVE) mg/dL Urine Occult Blood Negative (NEGATIVE) Urine Nitrite Negative (NEGATIVE) Urine Bilirubin Negative (NEGATIVE) Urine Urobilinogen 1.0 (0.2-1.0) EU/dL Ur Leukocyte Esterase Trace A (NEGATIVE) Urine RBC 5-10 A (0-2) #/HPF Urine WBC 5-10 A (NONE SEEN) #/HPF Ur Squamous Epith Cells Moderate A (NONE/RARE) #/LPF Urine Crystals None seen (None Seen) #/HPF Urine Bacteria Small A (NONE SEEN) #/HPF Urine Casts None seen (NONE SEEN) #/LPF Urine Mucus Trace A (NONE SEEN) Ur Culture Indicated? No Imaging Data CT scan - head: Attestation: I have reviewed the pertinent imaging results. Radiologist's impression: ITS Impressions Head CT 05/12/25 18:44 IMPRESSION: 1.7 cm intraparenchymal hematoma in the high convexity in the right frontal lobe. Localized edema and mass effect. Preliminary 7:35 PM 05/12/2025 Impression dictated by: Damion Pendleton M.D. 05/12/2025 7:39 PM Dictation Location: [place] [address] Electronically authenticated by: [id number] Y Date: 05/12/2025 19:39 Discharge Plan Discharge Chief Complaint: Weakness Clinical Impression: Intraparenchymal hematoma of brain Qualifiers: Encounter type: initial encounter Laterality: right Loss of consciousness presence/duration: without LOC Qualified Code(s): S06.310A - Contusion and laceration of right cerebrum without loss of consciousness, initial encounter Patient Disposition: [facility] Time of Disposition Decision: 21:15 Discharge Location: [facility] Condition: Fair Mode of Transportation: EMS
[2025-05-12 18:07] LABS: Hematocrit 37.6 % (36.0-48.0); Hemoglobin 12.1 g/dL (12.0-16.0); Immature Granulocytes Abs Auto 0.11 10^3/uL (0.00-0.03); Immature Granulocytes Pct Auto 0.8 % (0.0-0.5); Lymphocytes Absolute Auto 1.4 10^3/uL (1.2-3.8); Mean Corpuscular HGB Conc 32.2 g/dL (29.9-35.2); Mean Corpuscular Hemoglobin 31.1 pg (26.7-34.0); Mean Corpuscular Volume 96.7 fL (81.0-99.0); Platelet Count 238 10^3/uL (150-450); Red Blood Count 3.89 10^6/uL (4.20-5.40); White Blood Count 14.1 10^3/uL (4.0-11.0)
[2025-05-12 18:29] LABS: Anion Gap 13.4; Blood Urea Nitrogen 19.0 mg/dL (7.0-18.0); Calcium 8.9 mg/dL (8.5-10.1); Carbon Dioxide 26.4 mmol/L (21.0-32.0); Chloride 105 mmol/L (98-107); Estimated GFR (African America >60 (>=60 mL/min/1.73m^2); Estimated GFR (Non-African Ame >60 (>=60 mL/min/1.73m^2); Glucose 171 mg/dL (74-106); Potassium 4.8 mmol/L (3.5-5.1); Sodium 140 mmol/L (136-145)
--- NOTE | 2025-05-12 18:44 | CT_ITS ---
The [address] [address] Patient Name: KAYLA HEATH MRN: [id number] date: 1960 Sex: F Assigned Patient Location: ER Current Patient Location: ER Accession/Order Number: [id number] Exam Date: 05/12/2025 18:59 Report Date: 05/12/2025 19:39 At the request of: AUGUST MUSTAFA Procedure: CT head/brain wo con Unenhanced head CT TECHNIQUE: Contiguous axial imaging of the head. The CT exam was performed using one or more the following dose reduction techniques: Automated exposure control, adjustment of the MA and/or Kv according to patient size, or use of the iterative reconstruction technique. COMPARISON: 03/21/2025 HISTORY: Left upper lower extremity weakness for 5 days VENTRICLES: Within normal limits ATROPHY: None BRAIN PARENCHYMA: Adequate larios-white matter differentiation identified. HEMORRHAGE: In the high convexity right frontal region there is intraparenchymal hematoma measuring up to 1.7 cm. Adjacent vasogenic edema and localized mass effect HERNIATION: No herniation INFARCTION: No recent vascular distribution infarction is seen. EXTRA-AXIAL FLUID COLLECTIONS None MIDBRAIN: Unremarkable THADDEUS: Unremarkable MEDULLA: Unremarkable SINUSES: Unremarkable ORBITS: Grossly unremarkable MASTOIDS: Unremarkable BONY STRUCTURES Intact ADDITIONAL FINDINGS: CT/CT head/brain wo con IMPRESSION: 1.7 cm intraparenchymal hematoma in the high convexity in the right frontal lobe. Localized edema and mass effect. Preliminary 7:35 PM 05/12/2025 Impression dictated by: Damion Pendleton M.D. 05/12/2025 7:39 PM Dictation Location: [place] [address] Electronically authenticated by: [id number] Y Date: 05/12/2025 19:39
[2025-05-12] MEDS: FENTANYL CITRATE/PF 100 MCG/2 ML VIAL 50 MCG IV (19:29)
--- OUTSIDE RECORDS SUMMARY | 2025-05-12 19:50 | XMS_ITS | CCD ---
Author Organization [facility] Care Team Providers Care Skoog Machine Operator Name Role Phone PHYSICIAN, DEFAULT Unavailable [...] WALLACE Primary Care Unavailable HOY ., DR WALLAEC Consulting Unavailable HOY ., DR WALLACE Consulting Unavailable HOY ., DR WALLACE Attending Unavailable HOY ., DR WALLACE Admitting Unavailable RAMANY ., DR WALLACE Primary Care Unavailable MD Madison Magana Primary Care Provider [phone] DO Isaac Greenwood Admit Provider [phone] MD Johnny Bernal Attending Provider [phone] Madison Magana Primary Care Physician [phone] OrAshley espinoza X Attending Unavailable Orzech, Ashley X Attending [...] Referring Unavailable COOK, Benjy P Attending Unavailable Benjy JOHNSON Admitting Unavailable JUSTINE PARKS Attending Unavailable ANGELLA WHITE Attending Unavailable DANII CHOWDARY Attending Unavailable JUSTINE PARKS Referring Unavailable JUSTINE PARKS Attending Unavailable JUSTINE PARKS Attending Unavailable JUSTINE PARKS Attending Unavailable Madison Magana MD Primary Care Provider [phone] Madison Magana MD Primary Care Provider [phone] Unavailable Primary Care Provider UnavailGLENNY Marti Admitting Unavailable MARYANA ALEJANDRO Referring Unavailable CHINO MADISON AMOS Primary Care Unavailable MAHIPAL, SHANTANU Attending Unavailable BETH HAYDEN Referring Unavailable CHINO MADISON DANDRE Primary Care Unavailable CHINO MADISON DANDRE Primary Care Unavailable LIAM SINGH Referring Unavailable RAMANJanusz MADISON DANDRE Primary Care Unavailable CHINO MADISON DANDRE Primary Care Unavailable CHINOMADISON DANDRE Primary Care Unavailable MADISON MAGANA Primary Care Unavailable Niurka Russ MD Attending Provider [phone] Madison Magana MD Primary Care Provider [id number] Amira Escobedo MD Attending Provider [phone] Shantanu Gilliland MD Referring Provider Harriet Arroyo MD Other Provider [phone] Harriet Arroyo MD Attending Provider Niurka Russ Attending Unavailable Niurka Russ Admitting Unavailable Amira Escobedo Attending Unavailable Amira Escobedo Admitting Unavailable Mahipal, Shantanu Referring Unavailable Madison Magana Primary Care Unavailable Harriet Arroyo Consulting Unavailable Allergies Allergy Classification Reported Allergen(s) Allergy Type Date of Onset Reaction(s) Facility (1 source) acetaminophen / oxyCODONE Drug Allergy 6 [facility] Repository (1 source) No Known Allergies; Translations: [No Known Allergies] Propensity to adverse reactions (disorder) 7 [facility] Repository (5 sources) Acetaminophen / oxyCODONE; Translations: [OXYCODONE-ACETAM INOPHEN] Drug Allergy 6 [facility] Repository (1 source) empagliflozin; Translations: [EMPAGLIFLOZIN] Drug Allergy 4 [facility] Repository Medications Current Medications Medication [...] Refills(s) 0 Start Date: 09/17/24 Status: Ordered acetaminophen 325 mg / oxyCODONE hydrochloride 5 mg oral tablet (2 sources) Opioid Agonist Start: 05-05-2025 take 1 tablet by mouth every six hours as needed for pain albuterol 0.83 mg/ml inhalation solution (3 sources) [...] Status: Ordered apixaban 5 mg oral tablet (18 sources) Factor Xa Inhibitor Start: 11-25-2023 take 1 tablet by mouth twice daily aspirin 81 mg delayed release oral tablet (12 sources) Platelet Aggregation Inhibitor, Nonsteroidal Anti-inflammatory Drug Start: 07-03-2016 take 1 tablet by mouth once daily atorvastatin 40 mg oral tablet (20 sources) HMG-CoA Reductase Inhibitor Start: 11-25-2023 take 1 tablet by mouth once daily at bedtime Start: 11-21-2023 End: 11-25-2023 take 1 tablet by mouth once daily Atorvastatin 20 mg tablet Discontinued 20 MG PO Daily November 21, 2023 [...] 07/03/2016 Active docusate sodium 100 mg oral capsule (6 sources) Start: 05-05-2025 take 1 capsule by mouth twice daily Start: 07-03-2016 take 1 capsule by mo [facility] twice daily as needed for constipation docusate sodium 100 mg capsule Take 100 mg by mouth 2 (two) times a day as needed for constipation. 07/03/2016 Active docusate sodium 50 mg / sennosides, senior living 8.6 mg oral tablet (4 sources) Start: 05-05-2025 take 1 tablet by janay th once daily at bedtime Start: 04-06-2025 Drug or medicament (substanc e) (12 sources) Start: 04-06-2025 Start: 03-29-2025 Start: 03-28-2025 End: 03-29-2025 Start: 03-26-2025 End: 03-28-2025 Start: 03-25-2025 End: 03-26-2025 Start: 03-25-2025 End: 03-25-2025 Start: 03-25-2025 End: 03-25-2025 Start: 03-24-2025 End: 03-25-2025 Start: 03-23-2025 End: 03-24-2025 Start: 03-22-2025 End: 03-23-2025 Start: 03-22-2025 End: 03-22-2025 Start: 03-22-2025 End: 03-22-2025 ezetimibe 10 mg oral tablet (18 sources) Dietary Cholesterol Absorption Inhibitor Start: 03-22-2025 Start: 06-02-2024 take 1 tablet by janay th once daily ezetimibe 10 mg Tab 10 mg = 1 tab(s), Oral, Daily, TAKE 1 TABLET BY MOUTH DAILY Start Date: 06/02/24 Status: Ordered Start: 11-21-2023 End: 11-25-2023 take 1 tablet by mouth once daily Ezetimibe 10 mg tablet Discontinued 10 MG PO Daily November 21, [...] End: 03-31-2025 lidocaine 0.05 mg/mg medicated patch (15 sources) Antiarrhythmic, Amide Local Anesthetic Start: 05-05-2025 apply 1 dose topically once daily Start: 06-02-2024 lidocaine Top 5% film Patch 1 patch(es), Topical, Daily, apply 1 patch TO THE AFFECTED AREA(S) DAILY leave on for 12 hours and off for 12 hours Start Date: 06/02/24 Status: Ordered metFORMIN hydrochloride 500 mg oral tablet (19 sources) Biguanide Start: 05-05-2025 take 1 tablet by janay th twice daily Start: 09-17-2024 metformin 500 mg Tab Oral, Daily, Refills(s) 0, High blood sugar Start Date: 09/17/24 Status: Ordered Start: 11-21-2023 End: 11-25-2023 take 1 tablet by mouth twice daily Metformin 500 mg tablet Discontinued 500 MG PO Twice daily November 21, 2023 12:00am November 25, 2023 12:46pm 24 hr metoprolol succinate 100 mg extended release oral tablet (20 sources) beta-Adrenergic Indra Start: 05-05-2025 take 1 tablet by mouth once daily Start: 04-06-2025 Start: 03-28-2025 Start: 03-22-2025 End: 03-22-2025 Start: 06-02-2024 take 2 tablets by mo [facility] once daily metoprolol succinate 50 mg ER Tab 100 mg = 2 tab(s), Oral, Daily, to equal 100mg. Start Date: 06/02/24 Status: Ordered Start: 11-25-2023 End: 05-05-2025 take 1 tablet by mouth once daily Metoprolol Succinate 50 mg Tablet Extended Release 24 Hr Discontinued 50 MG PO Daily 90 90 November 25, 2023 12:00am May 05, 2025 12:46pm Start: 07-03-2016 End: 03-22-2025 metoprolol tartrate (LOPRESS [...] Start: 07-03-2016 take 1 tablet by janay every eight hours as needed for nausea [...] for pain. 07/03/2016 Active polyethylene glycol 3350 76775 mg powder for oral solution (4 sources) Osmotic Laxative Start: 03-22-2025 End: 04-06-2025 promethazine hydrochloride 25 mg oral tablet (2 sources) Phenothiazine Start: 05-05-2025 take 1 tablet by mouth three times daily as needed for nausea and vomiting sacubitril 97 mg / valsartan 103 mg oral tablet (19 sources) Angiotensin 2 Receptor Indra Start: 03-29-2025 Start: 03-28-2025 End: 03-29-2025 Start: 06-02-2024 take 1 tablet by janay th twice daily, then take 1 tablet by mouth twice daily at bedtime Entresto 97 mg-103 mg oral tablet 1 tab(s), Oral, BID, TAKE 1 TABLET BY MOUTH TWICE DAILY (IN THE MORNING and AT BEDTIME) Start Date: 06/02/24 Status: Ordered Start: 11-25-2023 End: 05-05-2025 take 1 tablet by mouth twice daily Sacubitril-Valsartan (Entresto) 24-26 mg Tablet Discontinued 1 TAB PO Twice daily 180 90 November 25, 2023 12:00am May 05, 2025 12:46pm Semaglutide (4 sources) Start: 11-21-2023 Start: 11-21-2023 Semaglutide (O zempic) 0.25 mg or 0.5 mg (2 mg/3 mL) pen injector Active 0.5 MG SUBCUT .weekly November 21, 2023 12:00am SITagliptin 100 mg oral tablet (11 sources) Dipeptidyl Peptidase 4 Inhibitor Start: 05-05-2025 take 1 tablet by mouth once daily Start: 09-17-2024 Januvia 100 mg Tab Oral, Daily, Refills(s) 0, High blood sugar Start Date: 09/17/24 Status: Ordered sodium chloride 30 mg/ml inh alation solution (3 sources) Start: 03-24-2025 End: 03-29-2025 spironolactone 25 mg oral ta blet (18 sources) Aldosterone Antagonist Start: 06-02-2024 Start: 11-25-2023 End: 05-05-2025 take 1 tablet by mouth once daily Spironolactone 25 mg Tablet Discontinued 25 MG PO Daily 90 90 November 25, 2023 12:00am May 05, 2025 12:46pm sulfamethoxazole 800 mg / trimethoprim 160 mg oral tablet (1 source) Dihydrofolate Reductase Inhibitor Antibacterial, Sulfonamide Antimicrobial Start: 09-24-2024 Bactrim D.S. 800 mg-160 mg Tab 1 tab(s), Oral, BID, 10 tab(s), Refill(s) 0, [facility], 176, cm, 09/17/24 13:57:00 EST, Height/Length [...] mg / clavulanate 125 mg oral tablet (6 sources) Penicillin-class Antibacterial Start: 05-05-2025 End: 05-05-2025 take 1 tablet by mouth twice daily Amoxicillin-Pot Clavulanate 875-125 mg tablet Discontinued 1 TAB PO Twice daily May 05, 2025 12:00am May 05, 2025 1:25pm Start: 11-21-2023 End: 11-25-2023 take 1 tablet by mouth every twelve hours Amoxicillin-Pot Clavulanate 875-125 mg tablet Discontinued 1 TAB PO Every 12 hours [...] afterwards, # 2 cap(s), Refills(s) 0, Pharmacy: [id number], 178, cm, 06/02/24 14:00:00 EDT, Height/Length Dosing, 105, kg, 06/02/24 14:00:00 EDT, Weight Dosing Start Date: 06/05/24 Status: Ordered dexamethasone 6 mg oral tablet (2 sources) Corticosteroid Start: 05-05-2025 End: 05-05-2025 take 1 tablet by mouth once daily Dexamethasone 6 mg tablet Discontinued 6 MG PO Daily May 05, 2025 12:00am May 05, 2025 1:26pm 100 ml dexmedetomidine 0.004 mg/ml injection (1 source) Central alpha-2 Adrenergic Agonist Start: 03-25-2025 End: 03-26-2025 empagliflozin 10 mg oral tablet (10 sources) Sodium-Glucose Cotransporter 2 Inhibitor Start: 11-25-2023 End: 05-05-2025 take 1 tablet by mouth once daily Empagliflozin (Jardiance) 10 mg Tablet Discontinued 10 MG PO Daily November 25, 2023 12:00am May 05, 2025 12:45pm 2 ml furosemide 10 mg/ml injection (10 sources) Loop Diuretic Start: 03-27-2025 End: 03-27-2025 Start: 03-25-2025 End: 03-27-2025 Start: 11-25-2023 End: 05-05-2025 take 1 tablet by mouth once daily Furosemide (Lasix) 20 mg tablet Discontinued 20 MG PO Daily November 25, 2023 12:00am May 05, 2025 12:46pm 1 ml heparin sodium, porcine 5000 unt/ml [...] End: 03-26-2025 lisinopril 40 mg oral tablet (8 sources) Angiotensin Converting Enzyme Inhibitor Start: 11-21-2023 End: 11-25-2023 take 1 tablet by mouth once daily Lisinopril 40 mg tablet Discontinued 40 MG PO Daily November 21, [...] 03-31-2025 Start: 07-03-2016 take 1 tablet by mouth once da bhavya potassium chloride 10 meq ex tended release oral capsule (11 sources) Start: 03-30-2025 End: 03-30-2025 Start: 03-28-2025 End: 03-28-2025 Start: 03-27-2025 End: 03-28-2025 take 20 mEq intravenously every two hours Start: 03-26-2025 End: 03-26-2025 take 20 mEq intravenously every two hours Start: 11-25-2023 End: 05-05-2025 take 1 capsule by mouth once daily Potassium Chloride 10 mEq capsule, extended release Discontinued 10 MEQ PO Daily May 05, 2025 12:46pm May 05, 2025 12:48pm monobasic potassium phosphate 0.0408 meq/ml oral solution [...] Documented Da te Episodic/Chronic Acute myocardial infarction (17 sources) Myocardial infarction; Translations: [Non-ST elevation (NSTEMI) myocardial infarction] 11-21-2023 Chronic Administrative/social admission (4 sources) Patient encounter status; Translations: [Other specified counseling] 05-05-2025 Episodic Anal and rectal conditions (3 sources) Rectal [...] lung] Onset: 5 03-30-2025 Chronic Cardiac dysrhythmias (18 sources) Atrial fibrillation; Translations: [Unspecified atrial fibrillation] [...] disease (20 sources) Atherosclerotic heart disease of [place] coronary artery without angina pectoris; Translations: [Coronary arteriosclerosis] Onset: 7 11-21-2023 Chronic Crushing injury or internal injury (5 sources) Injury of heart; Translations: [Myocardial injury] 11-21-2023 Episodic Diabetes mellitus with complications (5 sources) Polyneuropathy due to diabetes mellitus; Translations: [Type 2 diabetes mellitus with diabetic polyneuropathy] Onset: 5 04-17-2025 Chronic Diabetes mellitus without complication (13 sources) Type 2 diabetes mellitus without complications; [...] hematuria] Onset: 4 Episodic Headache; including migraine (5 sources) Headache; Translations: [Headache] 11-21-2023 Episodic Influenza (5 sources) Influenza due to Influenza A virus; Translations: [Influenza due to other identified influenza virus with other respiratory manifestations] 11-21-2023 Episodic Maintenance chemotherapy; radiotherapy (7 sources) Patient encounter status; Translations: [Encounter for antineoplastic radiation therapy] Onset: 5 04-01-2025 Chronic Malaise and fatigue (2 sources) Fatigue; Translations: [Other fatigue] Onset: 5 04-22-2025 Episodic Nausea and vomiting (8 sources) Nausea; Translations: [Nausea] Onset: 5 04-06-2025 Episodic Noninfectious gastroenteritis (3 sources) Noninfectious gastroenteritis; Translations: [Noninfective gastroenteritis and colitis, unspecified] Onset: 5 04-21-2025 Episodic Nonspecific chest pain (9 sources) Chest pain, unspecified; Translations: [Chest pain] Onset: 7 11-21-2023 Episodic Osteoarthritis (1 source) Unspecified osteoarthritis, unspecified site; Translations: [UNSPECIFIED OSTEOARTHRITIS UNS SITE] Onset: 2 Chronic Other aftercare (2 sources) Long-term current use of anticoagulant; Translations: [shelter (current) use of anticoagulants] Onset: 4 Episodic [...] Onset: 5 Episodic Other lower respiratory disease (4 sources) Dyspnea; Translations: [Shortness of breath] 11-21-2023 Episodic Other lower respiratory disease (1 source) Shortness of breath; Translations: [Shortness of breath] 11-25-2023 Episodic Other nervous system disorders (5 sources) Pain due to neoplastic disease; Translations: [Neoplasm [...] 09-17-2024 Episodic Respiratory failure; insufficiency; arrest (adult) (4 sources) Chronic hypoxemic respiratory failure; Translations: [Chronic respiratory failure with hypoxia] 05-05-2025 Chronic Respiratory failure; insufficiency; arrest (adult) (20 sources) Acute respiratory failure; Translations: [Acute respiratory failure with hypoxia] Onset: 5 11-21-2023 Episodic Screening or history of mental health and substance abuse (9 sources) Personal history of nicotine dependence; Translations: [H/O: Disorder] Onset: 7 Episodic Substance-related disorders (6 sources) Nicotine dependence, cigarettes, uncomplicated; Translations: [Smoker] Onset: 2 09-17-2024 Chronic Comment on above: Added secondary to d ocumentation in Social History. Unclassified (1 source) shelter (current) use of oral hypoglycemic drugs; Translations: [PHYSICAL THERAPY AIDE (CURRENT) USE OF ORAL HYPOGLYCEMIC DRUGS] Onset: 7 Unclassified (2 sources) Unknown / UNK(Unknown) Onset: 7 Unclassified (2 sources) CONTACT W/AND (SUSP) EXPOS COVID-19; Translations: [CONTACT W/AND (SUSP) EXPOS COVID-19] Onset: 2 Unclassified (1 source) COUGH, UNSPECIFIED; Translations: [COUGH, UNSPECIFIED] Onset: 2 Unclassified (6 sources) Drug therapy finding 06-02-2024 Unclassified (2 sources) OTV; Translations: [OTV] Onset: 5 Unclassified (2 sources) C34.90 - Malignant neoplasm of unspecified part of unspecified bronchus or lung Viral infection (1 source) COVID-19; Translations: [COVID-19] Onset: 2 Past or Other Problems Problem Classification Problem Date Documented Da te Episodic/Chronic Coronary atherosclerosis and other heart disease (5 sources) Presence of aortocoronary bypass graft; Translations: [Aortocoronary bypass status] Onset: 05-10-2017 11-25-2023 Episodic E Codes: Fall (1 source) Unspecified fall, initial encounter; Translations: [UNSPECIFIED FALL INITIAL ENCOUNTER] Onset: 04-11-2022 Episodic Other aftercare (3 sources) extermination inspector (current) use of aspirin; Translations: [shelter (current) use of antithrombotics/anti platelets] Onset: 05-10-2017 Episodic Other aftercare (1 source) Other exterminator helper (current) drug therapy; Translations: [OTH SKILLED NURSING CURRENT DRUG THERAPY] Onset: 04-11-2022 Episodic Other [...] Name Value Interpretation Reference Range Facility Urine Cultureon 04-28-2025 Bacteria identified Cx Nom (U) 20,000 colonies/ml mixed bacterial skin contaminants including mixed gram negative bacilli - 2 Days PERFORMED BY: [place] [address] PATHOLOGIST BARREL LATHE OPERATOR INSIDE TOMER OSBORN M.D. Normal [facility] Comment on above: Performed By: #### C UU #### [address] Urine cultureOrdered By: Sunil Russ on 04-28-2025 Bacteria identified Cx Nom (U) bacilli - 2 Days [facility] CBC W Auto Differential pane l (Bld)on 04-07-2025 Basophils (Bld) [#/Vol] 0.04 10*3/uL [facility] Basophils/100 WBC (Bld) 0.5 % 0.0 - 2.0 % [facility] Eosinophils (Bld) [#/Vol] 0.27 10*3/uL [facility] Eosinophils/100 WBC (Bld) 3.3 % 0.0 - 6.0 % [facility] Erythrocyte distribution width (RBC) [Ratio] 13.0 % 11.5 - 14.5 % [facility] Hematocrit (Bld) [Volume fraction] 39.3 % 36.0 - 46.0 % [facility] Hemoglobin (Bld) [Mass/Vol] 12.0 g/dL 12.0 - 16.0 g/dL [facility] Immature granulocytes (Bld) [#/Vol] 0.04 10*3/uL [facility] Immature granulocytes/100 WBC (Bld) 0.5 % 0.0 - 0.9 % [facility] Interpretation and review of laboratory results Abnormal [facility] Lymphocytes (Bld) [#/Vol] 1.12 10*3/uL Low [facility] Lymphocytes/100 WBC (Bld) 13.7 % 13.0 - 44.0 % [facility] MCH (RBC) [Entitic mass] 30.8 pg 26.0 - 34.0 pg [facility] MCHC (RBC) [Mass/Vol] 30.5 g/dL Low 32.0 - 36.0 g/dL [facility] MCV (RBC) [Entitic vol] 101 fL High 80 - 100 fL [facility] Monocytes (Bld) [#/Vol] 0.68 10*3/uL [facility] Monocytes/100 WBC (Bld) 8.3 % 2.0 - 10.0 % [facility] Neutrophils (Bld) [#/Vol] 6.05 10*3/uL [facility] Neutrophils/100 WBC (Bld) 73.7 % 40.0 - 80.0 % [facility] Nucleated RBC/100 WBC (Bld) [Ratio] 0.0 % [facility] Platelets (Bld) [#/Vol] 251 10*3/uL [facility] RBC (Bld) [#/Vol] 3.90 10*6/uL [facility] WBC (Bld) [#/Vol] 8.2 10*3/uL [facility] Basophils (Bld) [#/Vol] 0.04 x10*3/uL Normal 0.00-0.10 [facility] Comment on above: Performed By: #### 5 7021-8 ####DERRICK Hall ([id number])[facility] ([facility])[address] [place] [address] Basophils/100 WBC (Bld) 0.5 % Normal 0.0-2.0 [facility] Comment on above: Performed By: #### 5 7021-8 ####DERRICK Hall ([id number])[facility] ([facility])[address] [place] [address] Eosinophils (Bld) [#/Vol] 0.27 x10*3/uL Normal 0.00-0.70 [facility] Comment on above: Performed By: #### 5 7021-8 ####DERRICK Hall ([id number])[facility] ([facility])[id number] [place] [address] Eosinophils/100 WBC (Bld) 3.3 % Normal 0.0-6.0 [facility] Comment on above: Performed By: #### 5 7021-8 ####DERRICK Hall ([id number])[facility] ([facility])[id number] [place] [address] Erythrocyte distribution width (RBC) [Ratio] 13.0 % Normal 11.5-14.5 [facility] Comment on above: Performed By: #### 5 7021-8 ####DERRICK Hall ([id number])[facility] ([facility])[id number] [place] [address] Hematocrit (Bld) [Volume fraction] 39.3 % Normal 36.0-46.0 [facility] Comment on above: Performed By: #### 5 7021-8 ####DERRICK Hall ([id number])[facility] ([facility])[id number] [place] [address] Hemoglobin (Bld) [Mass/Vol] 12.0 g/dL Normal 12.0-16.0 [facility] Comment on above: Performed By: #### 5 7021-8 ####DERRICK Hall ([id number])[facility] ([facility])[id number] [place] [address] Immature granulocytes (Bld) [#/Vol] 0.04 x10*3/uL Normal 0.00-0.70 [facility] Comment on above: Performed By: #### 5 7021-8 ####DERRICK Hall ([id number])[facility] ([facility])[address] [place] [address] Immature granulocytes/100 WBC (Bld) 0.5 % Normal 0.0-0.9 [facility] Comment on above: Result Comment: Arlen ture Granulocyte Count (IG) includes promyelocytes, myelocytes and metamyelocytes but does not include bands. Percent differential counts (%) should be interpreted in the context of the absolute cell counts (cells/UL). Performed By: #### 5 7021-8 ####DERRICK Hall ([id number])[facility] ([facility])[address] [place] [address] Lymphocytes (Bld) [#/Vol] 1.12 x10*3/uL Low 1.20-4.80 [facility] Comment on above: Performed By: #### 5 7021-8 ####DERRICK Hall ([id number])[facility] ([facility])[address] [place] [address] Lymphocytes/100 WBC (Bld) 13.7 % Normal 13.0-44.0 [facility] Comment on above: Performed By: #### 5 7021-8 ####DERRICK Hall ([id number])[facility] ([facility])[address] [place] [address] MCH (RBC) [Entitic mass] 30.8 pg Normal 26.0-34.0 [facility] Comment on above: Performed By: #### 5 7021-8 ####DERRICK Hall ([id number])[facility] ([facility])[address] [place] [address] MCHC (RBC) [Mass/Vol] 30.5 g/dL Low 32.0-36.0 [facility] Comment on above: Performed By: #### 5 7021-8 ####DERRICK Hall ([id number])[facility] ([facility])[address] [place] [address] MCV (RBC) [Entitic vol] 101 fL High 80-100 [facility] Comment on above: Performed By: #### 5 7021-8 ####DERRICK Hall ([id number])[facility] ([facility])[address] [place] [address] Monocytes (Bld) [#/Vol] 0.68 x10*3/uL Normal 0.10-1.00 [facility] Comment on above: Performed By: #### 5 7021-8 ####DERRICK Hall ([id number])[facility] ([facility])[address] [place] [address] Monocytes/100 WBC (Bld) 8.3 % Normal 2.0-10.0 [facility] Comment on above: Performed By: #### 5 7021-8 ####DERRICK Hall ([id number])[facility] ([facility])[address] [place] [address] Neutrophils (Bld) [#/Vol] 6.05 x10*3/uL Normal 1.20-7.70 [facility] Comment on above: Result Comment: Perc ent differential counts (%) should be interpreted in the context of the absolute cell counts (cells/uL). Performed By: #### 5 7021-8 ####DERRICK Hall ([id number])[facility] ([facility])[address] [place] [address] Neutrophils/100 WBC (Bld) 73.7 % Normal 40.0-80.0 [facility] Comment on above: Performed By: #### 5 7021-8 ####DERRICK Hall ([id number])[facility] ([facility])[address] [place] [address] Nucleated RBC/100 WBC (Bld) [Ratio] 0.0 /100 WBCs Normal 0.0-0.0 [facility] Comment on above: Performed By: #### 5 7021-8 ####DERRICK Hall ([id number])[facility] ([facility])[address] [place] [address] Platelets (Bld) [#/Vol] 251 x10*3/uL Normal 150-450 [facility] [facility] Comment on above: Performed By: #### 5 7021-8 ####DERRICK Hall ([id number])[facility] ([facility])[address] [place] [address] RBC (Bld) [#/Vol] 3.90 x10*6/uL Low 4.00-5.20 [facility] Comment on above: Performed By: #### 5 7021-8 ####DERRICK Hall ([id number])[facility] ([facility])[id number] [place] [address] WBC (Bld) [#/Vol] 8.2 x10*3/uL Normal 4.4-11.3 [facility] Comment on above: Performed By: #### 5 7021-8 ####DERRICK Hall ([id number])[facility] ([facility])[address] [place] [address] Glucose Test strip manual (B ld) [Mass/Vol]on 04-07-2025 Glucose [Mass/Vol] 177 mg/dL High 74 - 99 mg/dL [facility] Interpretation and review of laboratory results Abnormal [facility] Glucose [Mass/Vol] 177 mg/dL High 74-99 [facility] Comment on above: Performed By: #### 2 341-6 ####DERRICK Hall ([id number])[facility] ([facility])[address] [place] [address] Magnesiumon 04-07-2025 Magnesium [Mass/Vol] 2.04 mg/dL 1.60 - 2.40 mg/dL [facility] Magnesium [Mass/Vol] 2.04 mg/dL Normal 1.60-2.40 [facility] Comment on above: Performed By: #### 1 9123-9 ####DERRICK Hall ([id number])[facility] ([facility])[address] [place] [address] Magnesium [Mass/Vol]on 04-07 Interpretation and review of laboratory results Normal [facility] No Panel Informationon 04-07 [facility] Renal function 2000 panelon 04-07-2025 Albumin BCP dye [Mass/Vol] 3.0 g/dL Low 3.4 - 5.0 g/dL [facility] Anion gap [Moles/Vol] 13 mmol/L 10 - 2 0 mmol/L [facility] Calcium [Mass/Vol] 9.1 mg/dL 8.6 - 10. 6 mg/dL [facility] Chloride [Moles/Vol] 100 mmol/L 98 - 10 7 mmol/L [facility] CO2 [Moles/Vol] 26 mmol/L 21 - 32 mmol/L [facility] Creatinine [Mass/Vol] 0.52 mg/dL 0.50 - 1.05 mg/dL [facility] eGFR - PINF [facility] Glucose [Mass/Vol] 180 mg/dL High 74 - 99 mg/dL [facility] Interpretation and review of laboratory results Abnormal [facility] Phosphate [Mass/Vol] 3.1 mg/dL 2.5 - 4 .9 mg/dL [facility] Potassium [Moles/Vol] 4.6 mmol/L 3.5 - 5.3 mmol/L [facility] Sodium [Moles/Vol] 134 mmol/L Low 136 - 145 mmol/L [facility] Urea nitrogen [Mass/Vol] 10 mg/dL 6 - 23 mg/dL [facility] Albumin BCP dye [Mass/Vol] 3.0 g/dL Low 3.4-5.0 [facility] Comment on above: Performed By: #### 2 4362-6 ####DERRICK Hall ([id number])[facility] ([facility])[address] [place] [address] Anion gap [Moles/Vol] 13 mmol/L Normal 10-[address] [facility] Comment on above: Performed By: #### 2 4362-6 ####DERRICK Hall ([id number])[facility] ([facility])[address] [place] [address] Calcium [Mass/Vol] 9.1 mg/dL Normal 8.6-10.6 [facility] Comment on above: Performed By: #### 2 4362-6 ####DERRICK BRAR L ([id number])[facility] ([facility])[address] [place] [address] Chloride [Moles/Vol] 100 mmol/L Normal 98-107 [facility] Comment on above: Performed By: #### 2 4362-6 ####DERRICK Hall ([id number])[facility] ([facility])[address] [place] [address] CO2 [Moles/Vol] 26 mmol/L Normal 21-[address] [facility] Comment on above: Performed By: #### 2 4362-6 ####DERRICK Hall ([id number])[facility] ([facility])[address] [place] [address] Creatinine [Mass/Vol] 0.52 mg/dL Normal 0.50-1.05 [facility] Comment on above: Performed By: #### 2 4362-6 ####DERRICK BRAR L ([id number])[facility] ([facility])[address] [place] [address] Glomerular filtration rate >90 Normal >60 [facility] Comment on above: Result Comment: Calc ulations of estimated GFR are performed using the 2020 CKD-EPI Study Refit equation without the race variable for the IDMS-Traceable creatinine methods.https://jasn.asnjournals.org/content/early/ N.1674525546 Performed By: #### 2 4362-6 ####DERRICK BRAR L ([id number])[facility] ([facility])[address] [place] [address] Glucose [Mass/Vol] 180 mg/dL High 74-99 [facility] Comment on above: Performed By: #### 2 4362-6 ####DERRICK BRAR L ([id number])[facility] ([facility])[address] [place] [address] Phosphate [Mass/Vol] 3.1 mg/dL Normal 2.5-4.9 [facility] Comment on above: Performed By: #### 2 4362-6 ####DERRICK BRAR L ([id number])[facility] ([facility])[address] [place] [address] Potassium [Moles/Vol] 4.6 mmol/L Normal 3.5-5.3 [facility] Comment on above: Performed By: #### 2 4362-6 ####DERRICK BRAR L ([id number])[facility] ([facility])[address] [place] [address] Sodium [Moles/Vol] 134 mmol/L Low 136-145 [facility] Comment on above: Performed By: #### 2 4362-6 ####DERRICK BRAR L ([id number])[facility] ([facility])[address] [place] [address] Urea nitrogen [Mass/Vol] 10 mg/dL Normal 6-23 [facility] Comment on above: Performed By: #### 2 4362-6 ####DERRICK BRAR L ([id number])[facility] ([facility])[address] [place] [address] XR CHEST 1 VIEWon 04-07-2025 XR CHEST 1 VIEW Normal [facility] CBC W Auto Differential pane l (Bld)on 04-06-2025 Basophils (Bld) [#/Vol] 0.04 10*3/uL [facility] Basophils/100 WBC (Bld) 0.5 % 0.0 - 2.0 % [facility] Eosinophils (Bld) [#/Vol] 0.18 10*3/uL [facility] Eosinophils/100 WBC (Bld) 2.3 % 0.0 - 6.0 % [facility] Erythrocyte distribution width (RBC) [Ratio] 12.8 % 11.5 - 14.5 % [facility] Hematocrit (Bld) [Volume fraction] 38.8 % 36.0 - 46.0 % [facility] Hemoglobin (Bld) [Mass/Vol] 12.1 g/dL 12.0 - 16.0 g/dL [facility] Immature granulocytes (Bld) [#/Vol] 0.04 10*3/uL [facility] Immature granulocytes/100 WBC (Bld) 0.5 % 0.0 - 0.9 % [facility] Interpretation and review of laboratory results Abnormal [facility] Lymphocytes (Bld) [#/Vol] 0.99 10*3/uL Low [facility] Lymphocytes/100 WBC (Bld) 12.9 % 13.0 - 44.0 % [facility] MCH (RBC) [Entitic mass] 30.8 pg 26.0 - 34.0 pg [facility] MCHC (RBC) [Mass/Vol] 31.2 g/dL Low 32.0 - 36.0 g/dL [facility] MCV (RBC) [Entitic vol] 99 fL 80 - 100 fL [facility] Monocytes (Bld) [#/Vol] 0.65 10*3/uL [facility] Monocytes/100 WBC (Bld) 8.5 % 2.0 - 10.0 % [facility] Neutrophils (Bld) [#/Vol] 5.78 10*3/uL [facility] Neutrophils/100 WBC (Bld) 75.3 % 40.0 - 80.0 % [facility] Nucleated RBC/100 WBC (Bld) [Ratio] 0.0 % [facility] Platelets (Bld) [#/Vol] 213 10*3/uL [facility] RBC (Bld) [#/Vol] 3.93 10*6/uL [facility] WBC (Bld) [#/Vol] 7.7 10*3/uL [facility] Basophils (Bld) [#/Vol] 0.04 x10*3/uL Normal 0.00-0.10 [facility] Comment on above: Performed By: #### 5 7021-8 ####DERRICK BRAR L ([id number])[facility] ([facility])[address] [place] [address] Basophils/100 WBC (Bld) 0.5 % Normal 0.0-2.0 [facility] Comment on above: Performed By: #### 5 7021-8 ####DERRICK CHOUDHARYMOGAY L ([id number])[facility] ([facility])[address] [place] [address] Eosinophils (Bld) [#/Vol] 0.18 x10*3/uL Normal 0.00-0.70 [facility] Comment on above: Performed By: #### 5 7021-8 ####DERRICK BRAR L ([id number])[facility] ([facility])[address] [place] [address] Eosinophils/100 WBC (Bld) 2.3 % Normal 0.0-6.0 [facility] Comment on above: Performed By: #### 5 7021-8 ####DERRICK BRAR L ([id number])[facility] ([facility])[address] [place] [address] Erythrocyte distribution width (RBC) [Ratio] 12.8 % Normal 11.5-14.5 [facility] Comment on above: Performed By: #### 5 7021-8 ####DERRICK BRAR L ([id number])[facility] ([facility])[address] [place] [address] Hematocrit (Bld) [Volume fraction] 38.8 % Normal 36.0-46.0 [facility] Comment on above: Performed By: #### 5 7021-8 ####DERRICK BRAR L ([id number])[facility] ([facility])[address] [place] [address] Hemoglobin (Bld) [Mass/Vol] 12.1 g/dL Normal 12.0-16.0 [facility] Comment on above: Performed By: #### 5 7021-8 ####DERRICK BRAR L ([id number])[facility] ([facility])[address] [place] [address] Immature granulocytes (Bld) [#/Vol] 0.04 x10*3/uL Normal 0.00-0.70 [facility] Comment on above: Performed By: #### 5 7021-8 ####DERRICK Hall ([id number])[facility] ([facility])[address] [place] [address] Immature granulocytes/100 WBC (Bld) 0.5 % Normal 0.0-0.9 [facility] Comment on above: Result Comment: Arlen ture Granulocyte Count (IG) includes promyelocytes, myelocytes and metamyelocytes but does not include bands. Percent differential counts (%) should be interpreted in the context of the absolute cell counts (cells/UL). Performed By: #### 5 7021-8 ####DERRICK Hall ([id number])[facility] ([facility])[address] [place] [address] Lymphocytes (Bld) [#/Vol] 0.99 x10*3/uL Low 1.20-4.80 [facility] Comment on above: Performed By: #### 5 7021-8 ####DERRICK Hall ([id number])[facility] ([facility])[address] [place] [address] Lymphocytes/100 WBC (Bld) 12.9 % Normal 13.0-44.0 [facility] Comment on above: Performed By: #### 5 7021-8 ####DERRICK Hall ([id number])[facility] ([facility])[address] [place] [address] MCH (RBC) [Entitic mass] 30.8 pg Normal 26.0-34.0 [facility] Comment on above: Performed By: #### 5 7021-8 ####DERRICK Hall ([id number])[facility] ([facility])[address] [place] [address] MCHC (RBC) [Mass/Vol] 31.2 g/dL Low 32.0-36.0 [facility] Comment on above: Performed By: #### 5 7021-8 ####DERRICK Hall ([id number])[facility] ([facility])[address] [place] [address] MCV (RBC) [Entitic vol] 99 fL Normal 80-100 [facility] Comment on above: Performed By: #### 5 7021-8 ####DERRICK Hall ([id number])[facility] ([facility])[address] [place] [address] Monocytes (Bld) [#/Vol] 0.65 x10*3/uL Normal 0.10-1.00 [facility] Comment on above: Performed By: #### 5 7021-8 ####DERRICK Hall ([id number])[facility] ([facility])[address] [place] [address] Monocytes/100 WBC (Bld) 8.5 % Normal 2.0-10.0 [facility] Comment on above: Performed By: #### 5 7021-8 ####DERRICK Hall ([id number])[facility] ([facility])[address] [place] [address] Neutrophils (Bld) [#/Vol] 5.78 x10*3/uL Normal 1.20-7.70 [facility] Comment on above: Result Comment: Perc ent differential counts (%) should be interpreted in the context of the absolute cell counts (cells/uL). Performed By: #### 5 7021-8 ####DERRICK Hall ([id number])[facility] ([facility])[address] [place] [address] Neutrophils/100 WBC (Bld) 75.3 % Normal 40.0-80.0 [facility] Comment on above: Performed By: #### 5 7021-8 ####DERRICK CHOUDHARYMOTZER L ([id number])[facility] ([facility])[address] [place] [address] Nucleated RBC/100 WBC (Bld) [Ratio] 0.0 /100 WBCs Normal 0.0-0.0 [facility] Comment on above: Performed By: #### 5 7021-8 ####DERRICK Hall ([id number])[facility] ([facility])[address] [place] [address] Platelets (Bld) [#/Vol] 213 x10*3/uL Normal 150-450 [facility] Comment on above: Performed By: #### 5 7021-8 ####DERRICK Hall ([id number])[facility] ([facility])[address] [place] [address] RBC (Bld) [#/Vol] 3.93 x10*6/uL Low 4.00-5.20 [facility] Comment on above: Performed By: #### 5 7021-8 ####DERRICK Hall ([id number])[facility] ([facility])[address] [place] [address] WBC (Bld) [#/Vol] 7.7 x10*3/uL Normal 4.4-11.3 [facility] Comment on above: Performed By: #### 5 7021-8 ####DERRICK Hall ([id number])[facility] ([facility])[address] [place] [address] Glucose Test strip manual (B ld) [Mass/Vol]on 04-06-2025 Glucose [Mass/Vol] 210 mg/dL High 74 - 99 mg/dL [facility] Interpretation and review of laboratory results Abnormal [facility] Glucose [Mass/Vol] 210 mg/dL High 74-99 [facility] Comment on above: Performed By: #### 2 341-6 ####DERRICK Hall ([id number])[facility] ([facility])[address] [place] [address] Glucose [Mass/Vol] 211 mg/dL High 74 - 99 mg/dL [facility] Interpretation and review of laboratory results Abnormal [facility] Glucose [Mass/Vol] 211 mg/dL High 74-99 [facility] Comment on above: Performed By: #### 2 341-6 ####DERRICK Hall ([id number])[facility] ([facility])[address] [place] [address] Glucose [Mass/Vol] 245 mg/dL High 74 - 99 mg/dL [facility] Interpretation and review of laboratory results Abnormal [facility] Glucose [Mass/Vol] 245 mg/dL High 74-99 [facility] Comment on above: Performed By: #### 2 341-6 ####DERRICK Hall ([id number])[facility] ([facility])[address] [place] [address] Glucose [Mass/Vol] 194 mg/dL High 74 - 99 mg/dL [facility] Interpretation and review of laboratory results Abnormal [facility] Glucose [Mass/Vol] 194 mg/dL High 74-99 [facility] Comment on above: Performed By: #### 2 341-6 ####DERRICK Hall ([id number])[facility] ([facility])[address] [place] [address] MRSA isol Org specific cx Ql (Nose)Ordered By: Monico Vasquez on 04-06-2025 Interpretation and review of laboratory results Normal [facility] Staphylococcus sp identified Org specific cx Nom (Unsp spec) No Staphylococcus aureus isolated [facility] Magnesiumon 04-06-2025 Magnesium [Mass/Vol] 1.98 mg/dL 1.60 - 2.40 mg/dL [facility] Magnesium [Mass/Vol] 1.98 mg/dL Normal 1.60-2.40 [facility] Comment on above: Performed By: #### 1 9123-9 ####DERRICK Hall ([id number])[facility] ([facility])[address] [place] [address] Magnesium [Mass/Vol]on 04-06 Interpretation and review of laboratory results Normal [facility] No Panel Informationon 04-06 [facility] Renal function 2000 panelon 04-06-2025 Albumin BCP dye [Mass/Vol] 3.0 g/dL Low 3.4 - 5.0 g/dL [facility] Anion gap [Moles/Vol] 13 mmol/L 10 - 2 0 mmol/L [facility] Calcium [Mass/Vol] 9.2 mg/dL 8.6 - 10. 6 mg/dL [facility] Chloride [Moles/Vol] 98 mmol/L 98 - 10 7 mmol/L [facility] CO2 [Moles/Vol] 28 mmol/L 21 - 32 mmol/L [facility] Creatinine [Mass/Vol] 0.72 mg/dL 0.50 - 1.05 mg/dL [facility] eGFR - PINF [facility] Glucose [Mass/Vol] 206 mg/dL High 74 - 99 mg/dL [facility] Interpretation and review of laboratory results Abnormal [facility] Phosphate [Mass/Vol] 2.8 mg/dL 2.5 - 4 .9 mg/dL [facility] Potassium [Moles/Vol] 4.3 mmol/L 3.5 - 5.3 mmol/L [facility] Sodium [Moles/Vol] 135 mmol/L Low 136 - 145 mmol/L [facility] Urea nitrogen [Mass/Vol] 11 mg/dL 6 - 23 mg/dL [facility] Albumin BCP dye [Mass/Vol] 3.0 g/dL Low 3.4-5.0 [facility] Comment on above: Performed By: #### 2 4362-6 ####DERRICK Hall ([id number])[facility] ([facility])[address] [place] [address] Anion gap [Moles/Vol] 13 mmol/L Normal 10-20 [facility] Comment on above: Performed By: #### 2 4362-6 ####DERRICK Hall ([id number])[facility] ([facility])[address] [place] [address] Calcium [Mass/Vol] 9.2 mg/dL Normal 8.6-10.6 [facility] Comment on above: Performed By: #### 2 4362-6 ####DERRICK Hall ([id number])[facility] ([facility])[address] [place] [address] Chloride [Moles/Vol] 98 mmol/L Normal 98-107 [facility] Comment on above: Performed By: #### 2 4362-6 ####DERRICK BRAR L ([id number])[facility] ([facility])[address] [place] [address] CO2 [Moles/Vol] 28 mmol/L Normal 21-[address] [facility] Comment on above: Performed By: #### 2 4362-6 ####DERRICK Hall ([id number])[facility] ([facility])[address] [place] [address] Creatinine [Mass/Vol] 0.72 mg/dL Normal 0.50-1.05 [facility] Comment on above: Performed By: #### 2 4362-6 ####DERRICK Hall ([id number])[facility] ([facility])[address] [place] [address] Glomerular filtration rate >90 Normal >60 [facility] Comment on above: Result Comment: Calc ulations of estimated GFR are performed using the 2020 CKD-EPI Study Refit equation without the race variable for the IDMS-Traceable creatinine methods.https://jasn.asnjournals.org/content// N.1230309496 Performed By: #### 2 4362-6 ####DERRICK Hall ([id number])[facility] ([facility])[address] [place] [address] Glucose [Mass/Vol] 206 mg/dL High 74-99 [facility] Comment on above: Performed By: #### 2 4362-6 ####DERRICK BRAR L ([id number])[facility] ([facility])[address] [place] [address] Phosphate [Mass/Vol] 2.8 mg/dL Normal 2.5-4.9 [facility] Comment on above: Performed By: #### 2 4362-6 ####DERRICK Hall ([id number])[facility] ([facility])[address] [place] [address] Potassium [Moles/Vol] 4.3 mmol/L Normal 3.5-5.3 [facility] Comment on above: Performed By: #### 2 4362-6 ####DERRICK BRAR L ([id number])[facility] ([facility])[address] [place] [address] Sodium [Moles/Vol] 135 mmol/L Low 136-145 [facility] Comment on above: Performed By: #### 2 4362-6 ####DERRICK Hall ([id number])[facility] ([facility])[address] [place] [address] Urea nitrogen [Mass/Vol] 11 mg/dL Normal 6-23 [facility] Comment on above: Performed By: #### 2 4362-6 ####DERRICK Hall ([id number])[facility] ([facility])[address] [place] [address] Albumin BCP dye [Mass/Vol] 2.9 g/dL Low 3.4 - 5.0 g/dL [facility] Anion gap [Moles/Vol] 13 mmol/L 10 - 2 0 mmol/L [facility] Calcium [Mass/Vol] 9.3 mg/dL 8.6 - 10. 6 mg/dL [facility] Chloride [Moles/Vol] 100 mmol/L 98 - 10 7 mmol/L [facility] CO2 [Moles/Vol] 27 mmol/L 21 - 32 mmol/L [facility] Creatinine [Mass/Vol] 0.58 mg/dL 0.50 - 1.05 mg/dL [facility] eGFR - PINF [facility] Glucose [Mass/Vol] 161 mg/dL High 74 - 99 mg/dL [facility] Interpretation and review of laboratory results Abnormal [facility] Phosphate [Mass/Vol] 2.9 mg/dL 2.5 - 4 .9 mg/dL [facility] Potassium [Moles/Vol] 4.6 mmol/L 3.5 - 5.3 mmol/L [facility] Sodium [Moles/Vol] 135 mmol/L Low 136 - 145 mmol/L [facility] Urea nitrogen [Mass/Vol] 11 mg/dL 6 - 23 mg/dL [facility] Albumin BCP dye [Mass/Vol] 2.9 g/dL Low 3.4-5.0 [facility] Comment on above: Performed By: #### 2 4362-6 ####DERRICK Hall ([id number])[facility] ([facility])[address] [place] [address] Anion gap [Moles/Vol] 13 mmol/L Normal 10-20 [facility] Comment on above: Performed By: #### 2 4362-6 ####DERRICK Hall ([id number])[facility] ([facility])[address] [place] [address] Calcium [Mass/Vol] 9.3 mg/dL Normal 8.6-10.6 [facility] Comment on above: Performed By: #### 2 4362-6 ####DERRICK Hall ([id number])[facility] ([facility])[address] [place] [address] Chloride [Moles/Vol] 100 mmol/L Normal 98-107 [facility] Comment on above: Performed By: #### 2 4362-6 ####DERRICK Hall ([id number])[facility] ([facility])[address] [place] [address] CO2 [Moles/Vol] 27 mmol/L Normal 21-[address] [facility] Comment on above: Performed By: #### 2 4362-6 ####DERRICK Hall ([id number])[facility] ([facility])[address] [place] [address] Creatinine [Mass/Vol] 0.58 mg/dL Normal 0.50-1.05 [facility] Comment on above: Performed By: #### 2 4362-6 ####DERRICK BRAR L ([id number])[facility] ([facility])[address] [place] [address] Glomerular filtration rate >90 Normal >60 [facility] Comment on above: Result Comment: Calc ulations of estimated GFR are performed using the 2020 CKD-EPI Study Refit equation without the race variable for the IDMS-Traceable creatinine methods.https://jasn.asnjournals.org/content/early/ N.7065186929 Performed By: #### 2 4362-6 ####DERRICK BRAR L ([id number])[facility] ([facility])[address] [place] [address] Glucose [Mass/Vol] 161 mg/dL High 74-99 [facility] Comment on above: Performed By: #### 2 4362-6 ####DERRICK BRAR L ([id number])[facility] ([facility])[address] [place] [address] Phosphate [Mass/Vol] 2.9 mg/dL Normal 2.5-4.9 [facility] Comment on above: Performed By: #### 2 4362-6 ####DERRICK BRAR L ([id number])[facility] ([facility])[address] [place] [address] Potassium [Moles/Vol] 4.6 mmol/L Normal 3.5-5.3 [facility] Comment on above: Performed By: #### 2 4362-6 ####DERRICK CHOUDHARYMOTZER L ([id number])[facility] ([facility])[address] [place] [address] Sodium [Moles/Vol] 135 mmol/L Low 136-145 [facility] Comment on above: Performed By: #### 2 4362-6 ####DERRICK ALVESTZER L ([id number])[facility] ([facility])[address] [place] [address] Urea nitrogen [Mass/Vol] 11 mg/dL Normal 6-23 [facility] Comment on above: Performed By: #### 2 4362-6 ####DERRICK Hall ([id number])[facility] ([facility])[address] [place] [address] XR CHEST 1 VIEWon 04-06-2025 XR CHEST 1 VIEW Normal [facility] XR Chest Single viewon 04-06 [facility] MMODAL UH MMODAL [facility] Work Phone: Radiology Study observation (narrative) [facility] Work Phone: XR Chest Single viewOrdered By: Odalys Calvert on 04-06-2025 [facility] Work Phone: CBC W Auto Differential pane l (Bld)on 04-05-2025 Basophils (Bld) [#/Vol] 0.05 10*3/uL [facility] Basophils/100 WBC (Bld) 0.6 % 0.0 - 2.0 % [facility] Eosinophils (Bld) [#/Vol] 0.18 10*3/uL [facility] Eosinophils/100 WBC (Bld) 2.2 % 0.0 - 6.0 % [facility] Erythrocyte distribution width (RBC) [Ratio] 13.0 % 11.5 - 14.5 % [facility] Hematocrit (Bld) [Volume fraction] 38.9 % 36.0 - 46.0 % [facility] Hemoglobin (Bld) [Mass/Vol] 12.2 g/dL 12.0 - 16.0 g/dL [facility] Immature granulocytes (Bld) [#/Vol] 0.03 10*3/uL [facility] Immature granulocytes/100 WBC (Bld) 0.4 % 0.0 - 0.9 % [facility] Interpretation and review of laboratory results Abnormal [facility] Lymphocytes (Bld) [#/Vol] 1.05 10*3/uL Low [facility] Lymphocytes/100 WBC (Bld) 12.9 % 13.0 - 44.0 % [facility] MCH (RBC) [Entitic mass] 31.4 pg 26.0 - 34.0 pg [facility] MCHC (RBC) [Mass/Vol] 31.4 g/dL Low 32.0 - 36.0 g/dL [facility] MCV (RBC) [Entitic vol] 100 fL 80 - 100 fL [facility] Monocytes (Bld) [#/Vol] 0.66 10*3/uL [facility] Monocytes/100 WBC (Bld) 8.1 % 2.0 - 10.0 % [facility] Neutrophils (Bld) [#/Vol] 6.17 10*3/uL [facility] Neutrophils/100 WBC (Bld) 75.8 % 40.0 - 80.0 % [facility] Nucleated RBC/100 WBC (Bld) [Ratio] 0.0 % [facility] Platelets (Bld) [#/Vol] 217 10*3/uL [facility] RBC (Bld) [#/Vol] 3.88 10*6/uL Low [facility] WBC (Bld) [#/Vol] 8.1 10*3/uL [facility] Basophils (Bld) [#/Vol] 0.05 x10*3/uL Normal 0.00-0.10 [facility] Comment on above: Performed By: #### 5 7021-8 ####DERRICK Hall ([id number])[facility] ([facility])[address] [place] [address] Basophils/100 WBC (Bld) 0.6 % Normal 0.0-2.0 [facility] Comment on above: Performed By: #### 5 7021-8 ####DERRICK BRAR L ([id number])[facility] ([facility])[address] [place] [address] Eosinophils (Bld) [#/Vol] 0.18 x10*3/uL Normal 0.00-0.70 [facility] Comment on above: Performed By: #### 5 7021-8 ####DERRICK Hall ([id number])[facility] ([facility])[address] [place] [address] Eosinophils/100 WBC (Bld) 2.2 % Normal 0.0-6.0 [facility] Comment on above: Performed By: #### 5 7021-8 ####DERRICK Hall ([id number])[facility] ([facility])[address] [place] [address] Erythrocyte distribution width (RBC) [Ratio] 13.0 % Normal 11.5-14.5 [facility] Comment on above: Performed By: #### 5 7021-8 ####DERRICK Hall ([id number])[facility] ([facility])[address] [place] [address] Hematocrit (Bld) [Volume fraction] 38.9 % Normal 36.0-46.0 [facility] Comment on above: Performed By: #### 5 7021-8 ####DERRICK Hall ([id number])[facility] ([facility])[id number] [place] [address] Hemoglobin (Bld) [Mass/Vol] 12.2 g/dL Normal 12.0-16.0 [facility] Comment on above: Performed By: #### 5 7021-8 ####DERRICK Hall ([id number])[facility] ([facility])[id number] [place] [address] Immature granulocytes (Bld) [#/Vol] 0.03 x10*3/uL Normal 0.00-0.70 [facility] Comment on above: Performed By: #### 5 7021-8 ####DERRICK Hall ([id number])[facility] ([facility])[address] [place] [address] Immature granulocytes/100 WBC (Bld) 0.4 % Normal 0.0-0.9 [facility] Comment on above: Result Comment: Arlen ture Granulocyte Count (IG) includes promyelocytes, myelocytes and metamyelocytes but does not include bands. Percent differential counts (%) should be interpreted in the context of the absolute cell counts (cells/UL). Performed By: #### 5 7021-8 ####DERRICK Hall ([id number])[facility] ([facility])[address] [place] [address] Lymphocytes (Bld) [#/Vol] 1.05 x10*3/uL Low 1.20-4.80 [facility] Comment on above: Performed By: #### 5 7021-8 ####DERRICK Hall ([id number])[facility] ([facility])[address] [place] [address] Lymphocytes/100 WBC (Bld) 12.9 % Normal 13.0-44.0 [facility] Comment on above: Performed By: #### 5 7021-8 ####DERRICK Hall ([id number])[facility] ([facility])[address] [place] [address] MCH (RBC) [Entitic mass] 31.4 pg Normal 26.0-34.0 [facility] Comment on above: Performed By: #### 5 7021-8 ####DERRICK Hall ([id number])[facility] ([facility])[address] [place] [address] MCHC (RBC) [Mass/Vol] 31.4 g/dL Low 32.0-36.0 [facility] Comment on above: Performed By: #### 5 7021-8 ####DERRICK Hall ([id number])[facility] ([facility])[address] [place] [address] MCV (RBC) [Entitic vol] 100 fL Normal 80-100 [facility] Comment on above: Performed By: #### 5 7021-8 ####DERRICK Hall ([id number])[facility] ([facility])[address] [place] [address] Monocytes (Bld) [#/Vol] 0.66 x10*3/uL Normal 0.10-1.00 [facility] Comment on above: Performed By: #### 5 7021-8 ####DERRICK Hall ([id number])[facility] ([facility])[id number] [place] [address] Monocytes/100 WBC (Bld) 8.1 % Normal 2.0-10.0 [facility] Comment on above: Performed By: #### 5 7021-8 ####DERRICK Hall ([id number])[facility] ([facility])[address] [place] [address] Neutrophils (Bld) [#/Vol] 6.17 x10*3/uL Normal 1.20-7.70 [facility] Comment on above: Result Comment: Perc ent differential counts (%) should be interpreted in the context of the absolute cell counts (cells/uL). Performed By: #### 5 7021-8 ####DERRICK Hall ([id number])[facility] ([facility])[address] [place] [address] Neutrophils/100 WBC (Bld) 75.8 % Normal 40.0-80.0 [facility] Comment on above: Performed By: #### 5 7021-8 ####DERRICK Hall ([id number])[facility] ([facility])[address] [place] [address] Nucleated RBC/100 WBC (Bld) [Ratio] 0.0 /100 WBCs Normal 0.0-0.0 [facility] Comment on above: Performed By: #### 5 7021-8 ####DERRICK Hall ([id number])[facility] ([facility])[address] [place] [address] Platelets (Bld) [#/Vol] 217 x10*3/uL Normal 150-450 [facility] Comment on above: Performed By: #### 5 7021-8 ####DERRICK Hall ([id number])[facility] ([facility])[address] [place] [address] RBC (Bld) [#/Vol] 3.88 x10*6/uL Low 4.00-5.20 [facility] Comment on above: Performed By: #### 5 7021-8 ####DERRICK Hall ([id number])[facility] ([facility])[address] [place] [address] WBC (Bld) [#/Vol] 8.1 x10*3/uL Normal 4.4-11.3 [facility] Comment on above: Performed By: #### 5 7021-8 ####DERRICK Hall ([id number])[facility] ([facility])[address] [place] [address] Glucose Test strip manual (B ld) [Mass/Vol]on 04-05-2025 Glucose [Mass/Vol] 244 mg/dL High 74 - 99 mg/dL [facility] Interpretation and review of laboratory results Abnormal [facility] Glucose [Mass/Vol] 244 mg/dL High 74-99 [facility] Comment on above: Performed By: #### 2 341-6 ####DERRICK Hall ([id number])[facility] ([facility])[address] [place] [address] Glucose [Mass/Vol] 219 mg/dL High 74 - 99 mg/dL [facility] Interpretation and review of laboratory results Abnormal [facility] Glucose [Mass/Vol] 219 mg/dL High 74-99 [facility] Comment on above: Performed By: #### 2 341-6 ####DERRICK Hall ([id number])[facility] ([facility])[address] [place] [address] Glucose [Mass/Vol] 223 mg/dL High 74 - 99 mg/dL [facility] Interpretation and review of laboratory results Abnormal [facility] Glucose [Mass/Vol] 223 mg/dL High 74-99 [facility] Comment on above: Performed By: #### 2 341-6 ####DERRICK Hall ([id number])[facility] ([facility])[address] [place] [address] Glucose [Mass/Vol] 194 mg/dL High 74 - 99 mg/dL [facility] Interpretation and review of laboratory results Abnormal [facility] Glucose [Mass/Vol] 194 mg/dL High 74-99 [facility] Comment on above: Performed By: #### 2 341-6 ####DERRICK Hall ([id number])[facility] ([facility])[address] [place] [address] Magnesiumon 04-05-2025 Magnesium [Mass/Vol] 1.97 mg/dL 1.60 - 2.40 mg/dL [facility] Magnesium [Mass/Vol] 1.97 mg/dL Normal 1.60-2.40 [facility] Comment on above: Performed By: #### 1 9123-9 ####DERRICK Hall ([id number])[facility] ([facility])[address] [place] [address] Magnesium [Mass/Vol]on 04-05 Interpretation and review of laboratory results Normal [facility] No Panel Informationon 04-05 [facility] Non-gynecological cytology m ethod studyOrdered By: Benjy Paiz on 04-05-2025 Disclaimer x6ukaTWtFEWdmLKhOjYk MDAwXG Avc9nyJDDmmYEaZpZvLxCrAlZa FpetdFWeINYjCuIhv3pgx865wN Tro6itUYIcXmV2mKTgEOLjcMes vkn7rGfxXaKuPZAld5rnvfXbZk UhRWVdWFEiOURxoAfmerv1lQfs GaHeKLTycFtcRUDgMYg6iT14GN PceB7ujUYnRLwhbwPeAxS0AEtp EZArSpC0UBFebGGnJKAsM3nnYE KuFKdmSASoKFnuwKDsCRA2yOdy e0O1nFAtvRKevXviCvNjYdDsVn EBb8NvHLx0yJqkR6ItCBMlYpM2 bUXoSXYlZHpbDWJkXSPcqmI0tS vqsnUvq33fnKKcAAVbZGNhEfCt R36mmi7cqM71fD70RGywcpX0jM Eek4Qbc24sp239qX6ppCOrGRX2 DJZjCPQgsUYgLOWaHSJ2VPQruX NyC5eiXCSuSL4yklkgLNkgZYsv LSZpsMX0FZQkhFAiX3LlIYLnOS abRPXaviu2JiWxVn4ujEZtnRxv PFnza6jtj6bkkGCyQlo6NHLmYg EfKjlnAQwnq4Qgy7fnKQHmtc9x QVA9fPCdjPwrj0H1tLMlGDKmmQ CeclPeBYVlHnD6JVrzRT8szq49 RDAiQJF9oz4htEVdoNmscwGjcL ZsXVxmY2TuXCUlu291PJYkJ9Yv KMXzi5V2qdXjArFbFARclDY6pv Z3ADQmSPp4mPZbjuK4naHarKIt N7iqkP0rHOMsDA7bwtxxm7urWW xnWQbiUOMxiSE4clI6WYHcsLOm D0YvnL3uVNJwMTelVLXqirr3Eu ViWf2utUKjhTdnOEpeQgleIWlx XHBnbmNvbnRccGduZGVjXHBsYW luXHBsYWluXGYwXGZzMjRccGFy ZSmjw1XretNtyTxtYTMzZZM6Gr X0JRU6DFK9DNn2jGVlPpWzeDnc EEckMOE8JrTlROl1cAGrPaBndY o9VRHaMIE2RVt9WLu6hYH6CSOe fKu6FcOoKZV9FkmxYAz5fLj4WF OwrPt6LqXeRBD8PHIqEPJwiCcs dQlegW6mVlXiVwDsVsbqNU4iWM ZdK4fghRNzALOoIFQgM2quHpYt qC1ttNfzLYmhDzZjYvZvPxQAap Zft8MtkD9fHWCaUjX9uQDwvpKy D9YyxISycSCeFUC6geSyCUUsy5 MdIQSwd5A7ryWzxfZ7cHmpZPBh VYMcpHEkTK1XQJKkQCNjELPlcj VkvR7tCKInz34fr38orbZeQOAt juBjPBOvQJTwfF0qFwMgLE7lxD u0HOVllYGcnMGtKgOrVCOoVG25 qmVyKXEKE8BkXiPeUBJDQ5PcjC R3WVGca0OeBmDwlbHsuWDzviKd QX0iUQUsnPXxcgSlCXF6TOZiEO PYWpLjDRLao3KzKD9aUVVxmTkm QOIksI7oa5GrVHBay11kNTDPmV MlCDDqr1XurJPqx0AjYUUoQCEz jY3lEGUnMN6fIMFnDZhjFQVprc Amgv3teyCzIZAoPVShP0Ajqtyk aFexvqSmBLBxjw8ihhFpXHO1TV SeICQTFLAtknDyCB43FW9iYYFw oNdkiE8ycPBcxQSNdpx9RCSdsT Z0VHgfy3SfzJGnbuPYoHW5TLym xfQjMFCepMEtnDOWKJ97EFVoRD NyRXTQFPIiPG7dndJzr4QxoiHy tNvqWIQ9mZxbXJGya8DqhG7qK8 8ilQmdn1XnyOLjaqHgCQUeLMRa DiXJYPOqpgaejt0zUVvfzpL3AO O2JShgXWXeHSRjYv5bUKTzuW3a Y9WhFCT2pgSys7RhRwQCbAMpkK 58eMBowd36EJLnZMXtU5MpVLTz TQIeVSqqtgQupDflECKno45uqM AhflIau8RrcpLiQMLeP2kfDOWg rKNfuMKxt8EueF2fxNWvmjXpKE K6uTTlBDBobV6gVVLyvCadTKLw eY8aC8TxNErzCm4nSTEpwvdePE 0yyn52LG6uuaJqEH2navNyJQ21 obWgB9xSNOrsWUVyeYUubErsyT ViCCLyHMYmrkNzjk0ctYqnxUBb j97vmJV0uGR8MQOttT7lN8EgHF rjGr5bTAQgdntbmCUueCcbZf6g UZNsSVDcp3ZcwSVrj0TqQOToRI Fbo1ZsXWJdq2e0tIIpoTTsl3Fq eOY1WBBno4NiyCv6CYPvvuJmnj NhNLMreqIzR09crXIaaXIns6hq D7tvs6RscU7nYXFvyNMtn1HtwA O9QPv7VgbeBEO6 [facility] Work Phone: Laboratory comment Darío (Report) x7lqzFUjAFOyq3ywUFVasCDbCp EwMzNcZnRuYmpcdWMxIHtccnRm MVxhbnNpXGRlZmxhbmcxMDMzXG H0ygQsDFKbGBO9FTY2IbEoi6M1 JZMaVxDtFWSmJD0awPztJUDpHZ 3lFHGnB2tnlK8ulvy2UnYaBLVe EjQ4HROxuyO0Zam1XSJtFEsor3 pcy1CaL8Ueo5AsPIk6gLglNiTc HCUxt0wncwDmXwGeRZIgSBQzDZ JfY07tWDGFT209o5oyy5bbhmPn vUR1QDGtBFJ6FGppgyVcbaC8VB jvkULjHoI5EQrxkwHsIMrqxwQg yyCsGfv8HXXgT892GHE8zCfri9 ehWTT5NPGeRDQoAzNtTl4rlQUz B756FMRzAPWFZXPciYw8IPRyrn MlwqQcoPWAd387I096v2hvUOLx boMjbAjPltaqq1wgR670KCChbJ SxnlTbYgZcHAPjlXHwyLA2HNXr CF4bjaxyQSxyRGyhMZSwbwQ8VV EvjOGlT9JnIOKiTB3ijwyuVDW0 ZXugJVUyCIT0FvFgTEUbw3Hnqd p3CpZsio4lma05JSN2s0HfmAdq KAQ3DNQ3ChHePz3ifCBiCJVxTN 2zEmFnvQAgRSEkfd56oRuvXEzb tpYxuY6jDbQvDMAmgFGwULQnYA 5ihODvALLniL1onafpDTLwSjJq uzurRUYjvIzdjkXyKp2baLvcFM V8FHeqJ0fyeS0fCpL1DPmzN7tv bR8uNWj9FYisqLT4BHHamF0fJF 8lseqwc5znWThlVOluJTEozqD1 csE8MUNncRRdS6JqaM0aQHLwSB 7xlaonc9qgJMO3TYgnNTRsSRF5 FwPeYFPvu7Dkenf6FyAjr7RnrG OhTAtoG26xp820YWZmicBzN7ik iZEojljxgWTgvueyORqsghU3AQ FsXHBsYWluXGYxXGZzMjBcbGFu ZzEwMzNcaGljaFxmMVxkYmNoXG UkWJawL8dtXuZdE3UhWGFjSfCj C7dqWLOghnvdxC6byBuvzIc0MW SzwzBwrnUqVBV5LOVrfBAlpeYB jbnlHORZGQY4YHXUFlXCJMYKA2 FMIENFTlRFUiAxMTEwMCBFVUNM SUQgQVZFXHBhciBDTEVWRUxBTk SoG5puJHYzSHQoLFpiMiwbmGMe blxmMVxmczIyXGxhbmcxMDMzXG eoI8yeEqOmEDTfqIvqBUsbt4Ws XWNbNELbLoYmzENcnB12FKD2Vf Vax2V4EOIwMeYiEKEhBH9ypHfh IOMuIK3sSUJaI5hjqQ8ucct9Ts VsKSJkKhT4YBYvmmC6Blg3TNNy YJbbv2xdz5BlV0Uos6DqTLs2rO aoTvXeXNDjb8oqfwEbIaWfIUEk UNViMSEyZ71rHHALK898w7lgl8 awcyWnrBP4KTYvKGX6NHzjqsAi eeF9KFojsDFxSbY0PRqeebIdQF hodxDpsuOnGyl7KVYgR501HMK3 aMdts9tuVBK5CTDsLHPiLhXqCl 7bqTPkS865XBUeUWHUNQMixWq2 DPIbsbNcirBvxTHLp728V752o7 rgTNAcvyMybJsGsvjsb4fdR543 XHBhcGVydzEyMjQwXHBhcGVyaD B2YTWuTK6codueDtKuXO0xbvhv XiVqKF5mqbh0TnKpKD9fmgbvVb XjRFkbQHPtvqsiCqSzGq5kqYXe bHR3DTcba6jdu7qdnPEvRjm4DH SqWdFhCeekGEdup3Rsd7xuQINn ye1eAXC8mZSelEeoz6F8bMSxVF PebRFronVwTPYiDlO5UGmbGM6f rv20UUGtFVN0xq2xeSToaEbrin YfkMHxIYdqF2GzSVEkr111TUJe V7DwDEXco0F9khXuWfBzKULbaQ Z3ywQ8MDNcTUh5iZAdivP8xcFd hLIpV1hriS0nNqXjuOLsX5PzvM 5iQsYdgLNrU3GluM7uFgCnxMCl I6TgqZ2yHoImtIOnKYElyXN3RI uzo586RFK2OzKwXDAxc5BrS9He hVlbP61neYmkH24cMZSrkVrizA 1vdBxntE0uMaVpLkNoVSdqiRrj bGFpblxmMVxmczIwXGxhbmcxMD XyZNuwR0lpHwTyMQSioPmiLGys o3KsUBZtDCNmEqWqGjtzcMvuAQ DmX65nbAVpTKAcltS5dGzrLCVu eH7wfDbsbBtkYEgaBYz7xZO7ZD ktm4VvX0AhbPFhyAmmcLIhWLIa HG2pr5qkRdF9sOOyPhjsMWtuUZ 73ZKOatgP8QSKbk93jLBqsI97e i1jxVMBgcbRxBtzdfkO9tII4LE HpPRaphUF8ZDStLSKeDOfoTCT5 uFrwXQUyg6OgXVvxPNX1dS== [facility] Work Phone: Laboratory comment Darío (Report) g1saeWUfLKJaxUQaKxZxDGBlSZ Ptw8qhCFSvnGEkNpRdYzNtGfQu BmtdnABtMLEfJhVfh6xdl135eG Yrh8xaGJQrTwE3vBEsGHEmT72s FGCUF854TIWdLFsku4jrj5KyBP EdrHBhg0C7KCCTAVvrLYVHXBb3 yEbiB00jx4Q6NdwpA4qtYNBsKB OvX3FiRW1zNLUaJxz7LND8KPF1 VUUzZNIkK0EyZU1pMUZlxTIlTX d7b9rxpVtcQMAaYKW3u4vaCDzk vwNnMI7iqf1prOj1p1qeuoOmKN ObDGNzoPCBQSPqP6WokZejKs4b jOb3pEdbYvczVBN0Eho1TV7keh 15bmh9cGayXGFiyuxmIjX5DLoq LVHvutbiHWh6RWnvKSGitCI7WA SchQOoK4JtUQEfUD0ykbn9IVJ8 AUlwYOLzLyR7CXMmjOKfUUNnqP aeQBpfd651NKH2HtRoWA3bX4Pg h4O0aD5rvPMrCKRklRHeLuGwXH Eeic3baTQbSLkvv5YpVDP3jqX2 qGOwbPYlSMFfOR76Xlbpe1JlQx gyPQQ4FNLhswSps0Ccp5frSwPh grZlV8hqI4FmSEXzDSJwRQIaQc GpoeMwb4Xqw3ZtdJPbbAq0q7bk BERyGFTfxIvue5saIOL7TRNaC6 W7eGDyy9tlRZvuOWGopJE7fjB0 MCFboNHmV6OnfH8mMDTfXA8noz d8i5mrWNE3QQumHJIkBcR6tiO5 VZYatBSvSDQtbExgHAyuj787HP N1UbLmYLBbf0MmE3UljQxfX52g uWnkQ70bWBRldPuxrS5ywQbpcA 5cZjBcZnMyNFxwYXJkXHBsYWlu XGYxXGZzMjBcbGFuZzEwMzNcaG aphAcrPYzzLcMwVOJoMEllR8sa ZjFcZnMyMCBBMQlTbGlkZXMgT2 2bfSDnQt1lDqxdH8hzFPrsTAAz CONwPKbXJWTnZ7ObbI0cRqrCDi BUaGluUHJlcAlccGFyIEEyCUNl zFfrVdpdE4hHRIBhylABYn2wRM fcHQmelSclgV3qCpFxFlMgJgka FD3eVOLqS7wkfVNwASFfBZJtU1 xkAnEsqI0bbBisXCtkqdEjRXJi cn0= [facility] Work Phone: Pathology report Cancer Narrative [facility] Work Phone: Pathology report final diagnosis Narrative l7hroRJpGOJfcRHqOCJyHschqm OcZTHveIKoY6VnscheOPwrQO4e FT0zdZwlnTYvjNQzYAMyIsUko9 fwe935rHWeo7bbWRCBitflzNv4 o0jgTNFSZZjyFGZLFPi7jCptH0 7vs7N9CasuR4gxWSAyBVwixsRj vxY9VQBalUVwSFrexyBpUMogwj QegjCwMty2PPX5xFqrUWZsvbld BjP4HLwuFRDbcmzuNSu8GGjzAU IgbPO3NCMewPBtH6IhDWMkTO9q yiz1HFY1ICtoTFLkWuV1BZOmcI JnCJQavFqbYWrvb320BNE7VnWb LNNcr1K9rdVhQzEvRYBmiSZ0hq E7VRMwNJ3ezpgwc0seAYalGVdi ANHucqQ5iuJ2WSMdzOTxO2KdcN 0iMPPcCG8eczgak8vhZKL5UBpd YXJkXHBsYWluXGYxXGZzMjBcY2 YxIEEuIFBMRVVSQUwgRkxVSUQg CugHVDObL9iZERdyVlOwMOXQWV GKOY6MPYDBSqMxW4QWGURQRW0B FaeqdBFdFP4nMdTYXUUNOUaYFF XJEPYXZIvTCuIMXdIFST1MBULZ XaNTJQBZARXJTJNjMA5YBGTGP5 5SJloHCO5HINGRHlRWDEPAMGrI EKLUBhNeN5FDLM1YXZMgTMFzok m2fOFkxYgbTQOpS0WoRZ4lzBNt DH3stOQ3MVepnGMpd9I8URrbye H7LSXfRDBjidZgcn0pVHZmelM7 dEJtJ1PezILqqS5pmu2uMNkvDO VkgXbem2xkHbYxOZGaIGZcXOlk G2npnUlnpGZyX4I0oEVdGXGpH6 LvyIYxkV4pxYxoTTYhIMWheYRs VaKfUWAonQreSSMRAA7PKJTbJS EozDTklApdyP1pJIUuECURVc16 TL7iLDBaKSctLGIcyKdlt7ucYr ZpmS23vh3uoUFwfuMmWLSxDG7m I1Q4wDAaZzBIDfFbRbaiSG1PLE XvCVXqhLRyTSvhF1vmnEAcjg40 XPLgKWKQSEYzYW8oPmEwCPCvi3 4gNXQjRSEdTHitwqHwuSblRqb2 TQQfn4e9vQRyCObeiAKnv9L8UP abuN8iTUOvzeXlp80bE2dphfBk AHOXUZ7lZFNtFWMldkOliXZcCI 3inIUjMWJwokQvj7ozyblbsIWu skMyHX6gVHSeXCFjEUaqxiLgrA ayNdl5lZ6jLBjpyHBhi2Eeh3l3 xCAlxWmeTy1hGW4pig5tnN0mZK kxQ0RSANYebt7obFSpFIYwk9Pw ukJlfT2wWX3hELRfZDQxfB0olO 2kfsQtadOtH77bl3qvVBRiEPAs yyY8NjYjR9lxrwFmFe3zMJWkVQ dgM30ip2hiZC6wAL2oeJsokvTs S3ffEPDwdj3= [facility] Work Phone: Pathology report gross observation Narrative m2tjfCPrZSEcpKQTEILuABAwIV 3rqAeofCq6bFkyNDJlwqO6jZAw ETvbc4jcAFI2w5ymkxKNKhwbEH QfEjwlSBYasabfWnG5OQitQPGw kcmlIQi1RFnoERFegVI4PCGsjH RoI9KlQEEkPB2oxfw8HBM9FIkj DFHbRmM0TRShVQf5QDPwjdG0Wn nqXDp1BYWsSKLqaAUbj8R7CKxx p1cmw2LlZPCoIBr4vV0Xg6lhQm rxW7wfsxJrpVFeQdC7cULgJVIt D88tHROHM326JBmck0JtfYPyZH r0BOsmTBDuR0WmR8QyTAlcUnHy JEfpDLBdHSNsRCjcFZYeD7UDCB OmOdz1UGO6KhOpDUd5LYr3JMYQ CLD5MDe3RHh6PPn6PIj9WDmhef szGGm7KDWrRSdzzLKwAK9psZkm GdtwtHogy7XbuXZhUUWsXUwucS QgNTEwMDIgXFxkYiBPVlIgIiAy SZzeTMK0QQYsNYw6UEwhR2QBXW QgFFQzPcW7PPUxVoU2TTt6WLEE Vu4cTJD3LxC3MlL4JBP8DFDaPm BcXHQgMiBcXHNzIDMgXFxmbCBc DN0phUxhWJCkZX1RQMQhHEixAV jpxeqzAMZyQJJzZvEaEN2eLXxO VVJBTCBGTFVJRCBSSUdIVCBTSU RFLlxsdHJjaFxmMlxmczIyXHBh tcVQCseaGFBzWF2ABDVrPUhvBA r5rmQdDSoqkdtpXUPqPpWtBEKb K17rj5MUl3AcGT6MUJn8spEthx DBUxdchoUrBKYkV1VpubRaMHQm MCBtbCBccHJvdGVjdHtcZmllbG H9QZniOiifbS9vpFQJTYSXHxcW YwowwsRzZU9BTYWKRxXDCS10Lz SoWXO2QMbpeDrcCwjaexZptJPk YaYTeZ5phWRlgcvnEeaqoEE1PT baLpmbfZ0mzEDFRTVBPmhWWopu pfOlPT6OKTMSEX4NlORwTsQiuO S0TI45GDAbGOXxjFNtJYwjA899 TFDuJDtcCPp4vkVqXDousrbsYS WnFsCxIYtycs75ZGI9c9hekNPc DAriGfufjDHpabS4KDaSWWHBRB wPKvYmAQ3bUUwQG3CGWFlVVrrb YWLgSTqhcIB2o5kwrZYiy0u3GX kdYQU0tGPrn9HtuIijBxaepWD8 OKzcJtoujW1ulQADYWARIozLKf tydfFgWM9JSVRXMG1CwWJoRrV5 vQJ2Ci38ZPMxZIIkvVElHYamM7 87VKVxJKsbTUm2eeAmYOdnpuwz TQUcPcXfPTYwrAkmLHqami10EM U9p5ntkJIuDYktKwjrsOUoxyR8 WOtYWYCJWOkLMyXyHP6bJWcDO8 JDAIaALyhePBSaAIbnkZG8f0qv sTJld0f5PCpcVGU5cWdlnIv9IH UjDUcxh9ziDYWzKUsyy6TzLAxJ JQMMSF4YYM4ztPH9QEaVVSBJYA ifVXAwLXbpsBW0t1ehfRUwx8s3 KFkrAFY8uYnnwPWodtzngMBgiB euWB9dSIjxmbAaQHPeKBT0kPQl DKRgkV9af9JfycbvYUSyvAYwrX QxaFwaOcbswKN4YCpnSvjlcX2d sESGIYIKRpqUPwwlabNnHZ9WSA TJVlBMAC44FqD5WGS3XFe5fKng OhaasxLrnHKzYvTNqO4fz0J5oL P8OMRaJWtoa4nuLAVxWKhcz7Zn GJbJFFQWSF3EWY2jsRO8YAcJHR ZDLVjyRQT2BPm1pQA1d1xeoDYm v8l4VKnyMPU8hQoouJTbnoladC VikPlrNB0eFXmagzSzZH6sZHPx ffXCQtsbMTMlBOJkuIRUq9CkRZ RZXkekkUubAzMghAWkDxU8JLRo zQZiOPL6KD6ffBreCSZwD4JpM2 RsqmS8DLBmksVBDfbaLWPgZI0U XGZzMjQgDQp9 [facility] Work Phone: Pathology report relevant history Narrative m1tdiSYfVSHim1mkCAAnsTXsZo TaUaBiCsTdPdf6ZFFsdlS6Knp5 XIXlKYgauN6fTTYhBDndI8fjlf CmvSWsXKQiVBv6iW6yzTebxY8b JjErUcXjWOEyvUI2wFUeHR9mxh ZXG8FOHeBzHCToksfyDpCnTMVx n2EipdRzrw6cWUR0vBQqWXZiiG B7JSBieQRaqHX4euTgOSDdNoAx yR7vy0jnXFAppL== [facility] Work Phone: [facility] Work Phone: Renal function 2000 panelon 04-05-2025 Albumin BCP dye [Mass/Vol] 3.1 g/dL Low 3.4 - 5.0 g/dL [facility] Anion gap [Moles/Vol] 11 mmol/L 10 - 2 0 mmol/L [facility] Calcium [Mass/Vol] 9.4 mg/dL 8.6 - 10. 6 mg/dL [facility] Chloride [Moles/Vol] 97 mmol/L Low 98 - 10 7 mmol/L [facility] CO2 [Moles/Vol] 30 mmol/L 21 - 32 mmol/L [facility] Creatinine [Mass/Vol] 0.74 mg/dL 0.50 - 1.05 mg/dL [facility] eGFR - PINF [facility] Glucose [Mass/Vol] 204 mg/dL High 74 - 99 mg/dL [facility] Interpretation and review of laboratory results Abnormal [facility] Phosphate [Mass/Vol] 2.5 mg/dL 2.5 - 4 .9 mg/dL [facility] Potassium [Moles/Vol] 4.0 mmol/L 3.5 - 5.3 mmol/L [facility] Sodium [Moles/Vol] 134 mmol/L Low 136 - 145 mmol/L [facility] Urea nitrogen [Mass/Vol] 14 mg/dL 6 - 23 mg/dL [facility] Albumin BCP dye [Mass/Vol] 3.1 g/dL Low 3.4-5.0 [facility] Comment on above: Performed By: #### 2 4362-6 ####DERRICK Hall ([id number])[facility] ([facility])[address] [place] [address] Anion gap [Moles/Vol] 11 mmol/L Normal 10-20 [facility] Comment on above: Performed By: #### 2 4362-6 ####DERRICK Hall ([id number])[facility] ([facility])[address] [place] [address] Calcium [Mass/Vol] 9.4 mg/dL Normal 8.6-10.6 [facility] Comment on above: Performed By: #### 2 4362-6 ####DERRICK Hall ([id number])[facility] ([facility])[address] [place] [address] Chloride [Moles/Vol] 97 mmol/L Low 98-107 [facility] Comment on above: Performed By: #### 2 4362-6 ####DERRICK Hall ([id number])[facility] ([facility])[address] [place] [address] CO2 [Moles/Vol] 30 mmol/L Normal 21-[address] [facility] Comment on above: Performed By: #### 2 4362-6 ####DERRICK Hall ([id number])[facility] ([facility])[address] [place] [address] Creatinine [Mass/Vol] 0.74 mg/dL Normal 0.50-1.05 [facility] Comment on above: Performed By: #### 2 4362-6 ####DERRICK BRAR L ([id number])[facility] ([facility])[address] [place] [address] Glomerular filtration rate >90 Normal >60 [facility] Comment on above: Result Comment: Calc ulations of estimated GFR are performed using the 2020 CKD-EPI Study Refit equation without the race variable for the IDMS-Traceable creatinine methods.https://jasn.asnjournals.org/content/early/ N.[id number] Performed By: #### 2 4362-6 ####DERRICK Hall ([id number])[facility] ([facility])[address] [place] [address] Glucose [Mass/Vol] 204 mg/dL High 74-99 [facility] Comment on above: Performed By: #### 2 4362-6 ####DERRICK BRAR L ([id number])[facility] ([facility])[address] [place] [address] Phosphate [Mass/Vol] 2.5 mg/dL Normal 2.5-4.9 [facility] Comment on above: Performed By: #### 2 4362-6 ####DERRICK BRAR L ([id number])[facility] ([facility])[address] [place] [address] Potassium [Moles/Vol] 4.0 mmol/L Normal 3.5-5.3 [facility] Comment on above: Performed By: #### 2 4362-6 ####DERRICK BRAR L ([id number])[facility] ([facility])[address] [place] [address] Sodium [Moles/Vol] 134 mmol/L Low 136-145 [facility] Comment on above: Performed By: #### 2 4362-6 ####DERRICK Hall ([id number])[facility] ([facility])[address] [place] [address] Urea nitrogen [Mass/Vol] 14 mg/dL Normal 6-23 [facility] Comment on above: Performed By: #### 2 4362-6 ####DERRICK Hall ([id number])[facility] ([facility])[address] [place] [address] Albumin BCP dye [Mass/Vol] 2.9 g/dL Low 3.4 - 5.0 g/dL [facility] Anion gap [Moles/Vol] 12 mmol/L 10 - 2 0 mmol/L [facility] Calcium [Mass/Vol] 9.1 mg/dL 8.6 - 10. 6 mg/dL [facility] Chloride [Moles/Vol] 99 mmol/L 98 - 10 7 mmol/L [facility] CO2 [Moles/Vol] 27 mmol/L 21 - 32 mmol/L [facility] Creatinine [Mass/Vol] 0.59 mg/dL 0.50 - 1.05 mg/dL [facility] eGFR - PINF [facility] Glucose [Mass/Vol] 200 mg/dL High 74 - 99 mg/dL [facility] Interpretation and review of laboratory results Abnormal [facility] Phosphate [Mass/Vol] 2.9 mg/dL 2.5 - 4 .9 mg/dL [facility] Potassium [Moles/Vol] 4.4 mmol/L 3.5 - 5.3 mmol/L [facility] Sodium [Moles/Vol] 134 mmol/L Low 136 - 145 mmol/L [facility] Urea nitrogen [Mass/Vol] 12 mg/dL 6 - 23 mg/dL [facility] Albumin BCP dye [Mass/Vol] 2.9 g/dL Low 3.4-5.0 [facility] Comment on above: Performed By: #### 2 4362-6 ####DERRICK Hall ([id number])[facility] ([facility])[address] [place] [address] Anion gap [Moles/Vol] 12 mmol/L Normal 10-20 [facility] Comment on above: Performed By: #### 2 4362-6 ####DERRICK SIMER L ([id number])[facility] ([facility])[address] [place] [address] Calcium [Mass/Vol] 9.1 mg/dL Normal 8.6-10.6 [facility] Comment on above: Performed By: #### 2 4362-6 ####DERRICK ALVESTZER L ([id number])[facility] ([facility])[address] [place] [address] Chloride [Moles/Vol] 99 mmol/L Normal 98-107 [facility] Comment on above: Performed By: #### 2 4362-6 ####DERRICK CHOUDHARYMOTZER L ([id number])[facility] ([facility])[address] [place] [address] CO2 [Moles/Vol] 27 mmol/L Normal 21-[address] [facility] Comment on above: Performed By: #### 2 4362-6 ####DERRICK CHOUDHARYMOTZER L ([id number])[facility] ([facility])[address] [place] [address] Creatinine [Mass/Vol] 0.59 mg/dL Normal 0.50-1.05 [facility] Comment on above: Performed By: #### 2 4362-6 ####DERRICK CHOUDHARYMOTZER L ([id number])[facility] ([facility])[address] [place] [address] Glomerular filtration rate >90 Normal >60 [facility] Comment on above: Result Comment: Calc ulations of estimated GFR are performed using the 2020 CKD-EPI Study Refit equation without the race variable for the IDMS-Traceable creatinine methods.https://jasn.asnjournals.org/content// N.8177440652 Performed By: #### 2 4362-6 ####DERRICK Hall ([id number])[facility] ([facility])[address] [place] [address] Glucose [Mass/Vol] 200 mg/dL High 74-99 [facility] Comment on above: Performed By: #### 2 4362-6 ####DERRICK Hall ([id number])[facility] ([facility])[address] [place] [address] Phosphate [Mass/Vol] 2.9 mg/dL Normal 2.5-4.9 [facility] Comment on above: Performed By: #### 2 4362-6 ####DERRICK Hall ([id number])[facility] ([facility])[address] [place] [address] Potassium [Moles/Vol] 4.4 mmol/L Normal 3.5-5.3 [facility] Comment on above: Performed By: #### 2 4362-6 ####DERRICK Hall ([id number])[facility] ([facility])[address] [place] [address] Sodium [Moles/Vol] 134 mmol/L Low 136-145 [facility] Comment on above: Performed By: #### 2 4362-6 ####DERRICK Hall ([id number])[facility] ([facility])[address] [place] [address] Urea nitrogen [Mass/Vol] 12 mg/dL Normal 6-23 [facility] Comment on above: Performed By: #### 2 4362-6 ####DERRICK Hall ([id number])[facility] ([facility])[address] [place] [address] XR CHEST 1 VIEWon 04-05-2025 XR CHEST 1 VIEW Normal [facility] XR Chest Single viewon 04-05 [facility] MMODAL U[facility] MMODAL [facility] Work Phone: [facility] Work Phone: Radiology Study observation (narrative) [facility] Work Phone: CBC W Auto Differential pane l (Bld)on 04-04-2025 Basophils (Bld) [#/Vol] 0.03 10*3/uL [facility] Basophils/100 WBC (Bld) 0.4 % 0.0 - 2.0 % [facility] Eosinophils (Bld) [#/Vol] 0.21 10*3/uL [facility] Eosinophils/100 WBC (Bld) 2.8 % 0.0 - 6.0 % [facility] Erythrocyte distribution width (RBC) [Ratio] 13.0 % 11.5 - 14.5 % [facility] Hematocrit (Bld) [Volume fraction] 41.7 % 36.0 - 46.0 % [facility] Hemoglobin (Bld) [Mass/Vol] 12.7 g/dL 12.0 - 16.0 g/dL [facility] Immature granulocytes (Bld) [#/Vol] 0.03 10*3/uL [facility] Immature granulocytes/100 WBC (Bld) 0.4 % 0.0 - 0.9 % [facility] Interpretation and review of laboratory results Abnormal [facility] Lymphocytes (Bld) [#/Vol] 0.93 10*3/uL Low [facility] Lymphocytes/100 WBC (Bld) 12.3 % 13.0 - 44.0 % [facility] MCH (RBC) [Entitic mass] 30.8 pg 26.0 - 34.0 pg [facility] MCHC (RBC) [Mass/Vol] 30.5 g/dL Low 32.0 - 36.0 g/dL [facility] MCV (RBC) [Entitic vol] 101 fL High 80 - 100 fL [facility] Monocytes (Bld) [#/Vol] 0.62 10*3/uL [facility] Monocytes/100 WBC (Bld) 8.2 % 2.0 - 10.0 % [facility] Neutrophils (Bld) [#/Vol] 5.73 10*3/uL [facility] Neutrophils/100 WBC (Bld) 75.9 % 40.0 - 80.0 % [facility] Nucleated RBC/100 WBC (Bld) [Ratio] 0.0 % [facility] Platelets (Bld) [#/Vol] 197 10*3/uL [facility] RBC (Bld) [#/Vol] 4.12 10*6/uL [facility] WBC (Bld) [#/Vol] 7.6 10*3/uL [facility] Basophils (Bld) [#/Vol] 0.03 x10*3/uL Normal 0.00-0.10 [facility] Comment on above: Performed By: #### 5 7021-8 ####DERRICK Hall ([id number])[facility] ([facility])[address] [place] [address] Basophils/100 WBC (Bld) 0.4 % Normal 0.0-2.0 [facility] Comment on above: Performed By: #### 5 7021-8 ####DERRICK Hall ([id number])[facility] ([facility])[address] [place] [address] Eosinophils (Bld) [#/Vol] 0.21 x10*3/uL Normal 0.00-0.70 [facility] Comment on above: Performed By: #### 5 7021-8 ####DERRICK Hall ([id number])[facility] ([facility])[address] [place] [address] Eosinophils/100 WBC (Bld) 2.8 % Normal 0.0-6.0 [facility] Comment on above: Performed By: #### 5 7021-8 ####DERRICK Hall ([id number])[facility] ([facility])[address] [place] [address] Erythrocyte distribution width (RBC) [Ratio] 13.0 % Normal 11.5-14.5 [facility] Comment on above: Performed By: #### 5 7021-8 ####DERRICK Hall ([id number])[facility] ([facility])[address] [place] [address] Hematocrit (Bld) [Volume fraction] 41.7 % Normal 36.0-46.0 [facility] Comment on above: Performed By: #### 5 7021-8 ####DERRICK Hall ([id number])[facility] ([facility])[address] [place] [address] Hemoglobin (Bld) [Mass/Vol] 12.7 g/dL Normal 12.0-16.0 [facility] Comment on above: Performed By: #### 5 7021-8 ####DERRICK Hall ([id number])[facility] ([facility])[address] [place] [address] Immature granulocytes (Bld) [#/Vol] 0.03 x10*3/uL Normal 0.00-0.70 [facility] Comment on above: Performed By: #### 5 7021-8 ####DERRICK Hall ([id number])[facility] ([facility])[address] [place] [address] Immature granulocytes/100 WBC (Bld) 0.4 % Normal 0.0-0.9 [facility] Comment on above: Result Comment: Arlen ture Granulocyte Count (IG) includes promyelocytes, myelocytes and metamyelocytes but does not include bands. Percent differential counts (%) should be interpreted in the context of the absolute cell counts (cells/UL). Performed By: #### 5 7021-8 ####DERRICK Hall ([id number])[facility] ([facility])[address] [place] [address] Lymphocytes (Bld) [#/Vol] 0.93 x10*3/uL Low 1.20-4.80 [facility] Comment on above: Performed By: #### 5 7021-8 ####DERRICK Hall ([id number])[facility] ([facility])[address] [place] [address] Lymphocytes/100 WBC (Bld) 12.3 % Normal 13.0-44.0 [facility] Comment on above: Performed By: #### 5 7021-8 ####DERRICK Hall ([id number])[facility] ([facility])[address] [place] [address] MCH (RBC) [Entitic mass] 30.8 pg Normal 26.0-34.0 [facility] Comment on above: Performed By: #### 5 7021-8 ####DERRICK CHOUDHARYMOGAY L ([id number])[facility] ([facility])[address] [place] [address] MCHC (RBC) [Mass/Vol] 30.5 g/dL Low 32.0-36.0 [facility] Comment on above: Performed By: #### 5 7021-8 ####DERRICK BRAR L ([id number])[facility] ([facility])[address] [place] [address] MCV (RBC) [Entitic vol] 101 fL High 80-100 [facility] Comment on above: Performed By: #### 5 7021-8 ####DERRICK BRAR L ([id number])[facility] ([facility])[address] [place] [address] Monocytes (Bld) [#/Vol] 0.62 x10*3/uL Normal 0.10-1.00 [facility] Comment on above: Performed By: #### 5 7021-8 ####DERRICK BRAR L ([id number])[facility] ([facility])[address] [place] [address] Monocytes/100 WBC (Bld) 8.2 % Normal 2.0-10.0 [facility] Comment on above: Performed By: #### 5 7021-8 ####DERRICK CHOUDHARYMOTZCARIDAD L ([id number])[facility] ([facility])[address] [place] [address] Neutrophils (Bld) [#/Vol] 5.73 x10*3/uL Normal 1.20-7.70 [facility] Comment on above: Result Comment: Perc ent differential counts (%) should be interpreted in the context of the absolute cell counts (cells/uL). Performed By: #### 5 7021-8 ####DERRICK Hall ([id number])[facility] ([facility])[address] [place] [address] Neutrophils/100 WBC (Bld) 75.9 % Normal 40.0-80.0 [facility] Comment on above: Performed By: #### 5 7021-8 ####DERRICK Hall ([id number])[facility] ([facility])[address] [place] [address] Nucleated RBC/100 WBC (Bld) [Ratio] 0.0 /100 WBCs Normal 0.0-0.0 [facility] Comment on above: Performed By: #### 5 7021-8 ####DERRICK Hall ([id number])[facility] ([facility])[address] [place] [address] Platelets (Bld) [#/Vol] 197 x10*3/uL Normal 150-450 [facility] Comment on above: Performed By: #### 5 7021-8 ####DERRICK Hall ([id number])[facility] ([facility])[address] [place] [address] RBC (Bld) [#/Vol] 4.12 x10*6/uL Normal 4.00-5.20 [facility] Comment on above: Performed By: #### 5 7021-8 ####DERRICK Hall ([id number])[facility] ([facility])[address] [place] [address] WBC (Bld) [#/Vol] 7.6 x10*3/uL Normal 4.4-11.3 [facility] Comment on above: Performed By: #### 5 7021-8 ####DERRICK Hall ([id number])[facility] ([facility])[address] [place] [address] Glucose Test strip manual (B ld) [Mass/Vol]on 04-04-2025 Glucose [Mass/Vol] 222 mg/dL High 74 - 99 mg/dL [facility] Interpretation and review of laboratory results Abnormal [facility] Glucose [Mass/Vol] 222 mg/dL High 74-99 [facility] Comment on above: Performed By: #### 2 341-6 ####DERRICK Hall ([id number])[facility] ([facility])[address] [place] [address] Glucose [Mass/Vol] 203 mg/dL High 74 - 99 mg/dL [facility] Interpretation and review of laboratory results Abnormal [facility] Glucose [Mass/Vol] 203 mg/dL High 74-99 [facility] Comment on above: Performed By: #### 2 341-6 ####DERRICK Hall ([id number])[facility] ([facility])[address] [place] [address] Glucose [Mass/Vol] 158 mg/dL High 74 - 99 mg/dL [facility] Interpretation and review of laboratory results Abnormal [facility] Glucose [Mass/Vol] 158 mg/dL High 74-99 [facility] Comment on above: Performed By: #### 2 341-6 ####DERRICK Hall ([id number])[facility] ([facility])[address] [place] [address] Magnesiumon 04-04-2025 Magnesium [Mass/Vol] 2.20 mg/dL 1.60 - 2.40 mg/dL [facility] Magnesium [Mass/Vol] 2.20 mg/dL Normal 1.60-2.40 [facility] Comment on above: Performed By: #### 1 9123-9 ####DERRICK Hall ([id number])[facility] ([facility])[address] [place] [address] Magnesium [Mass/Vol]on 04-04 Interpretation and review of laboratory results Normal [facility] No Panel Informationon 04-04 [facility] Renal function 2000 panelon 04-04-2025 Albumin BCP dye [Mass/Vol] 3.1 g/dL Low 3.4 - 5.0 g/dL [facility] Anion gap [Moles/Vol] 10 mmol/L 10 - 2 0 mmol/L [facility] Calcium [Mass/Vol] 9.4 mg/dL 8.6 - 10. 6 mg/dL [facility] Chloride [Moles/Vol] 97 mmol/L Low 98 - 10 7 mmol/L [facility] CO2 [Moles/Vol] 30 mmol/L 21 - 32 mmol/L [facility] Creatinine [Mass/Vol] 0.69 mg/dL 0.50 - 1.05 mg/dL [facility] eGFR - PINF [facility] Glucose [Mass/Vol] 221 mg/dL High 74 - 99 mg/dL [facility] Interpretation and review of laboratory results Abnormal [facility] Phosphate [Mass/Vol] 2.9 mg/dL 2.5 - 4 .9 mg/dL [facility] Potassium [Moles/Vol] 4.1 mmol/L 3.5 - 5.3 mmol/L [facility] Sodium [Moles/Vol] 133 mmol/L Low 136 - 145 mmol/L [facility] Urea nitrogen [Mass/Vol] 13 mg/dL 6 - 23 mg/dL [facility] Albumin BCP dye [Mass/Vol] 3.1 g/dL Low 3.4-5.0 [facility] Comment on above: Performed By: #### 2 4362-6 ####DERRICK Hall ([id number])[facility] ([facility])[address] [place] [address] Anion gap [Moles/Vol] 10 mmol/L Normal 10-20 [facility] Comment on above: Performed By: #### 2 4362-6 ####DERRICK Hall ([id number])[facility] ([facility])[address] [place] [address] Calcium [Mass/Vol] 9.4 mg/dL Normal 8.6-10.6 [facility] Comment on above: Performed By: #### 2 4362-6 ####DERRICK Hall ([id number])[facility] ([facility])[address] [place] [address] Chloride [Moles/Vol] 97 mmol/L Low 98-107 [facility] Comment on above: Performed By: #### 2 4362-6 ####DERRICK Hall ([id number])[facility] ([facility])[address] [place] [address] CO2 [Moles/Vol] 30 mmol/L Normal 21-[address] [facility] Comment on above: Performed By: #### 2 4362-6 ####DERRICK Hall ([id number])[facility] ([facility])[address] [place] [address] Creatinine [Mass/Vol] 0.69 mg/dL Normal 0.50-1.05 [facility] Comment on above: Performed By: #### 2 4362-6 ####DERRICK Hall ([id number])[facility] ([facility])[address] [place] [address] Glomerular filtration rate >90 Normal >60 [facility] Comment on above: Result Comment: Calc ulations of estimated GFR are performed using the 2020 CKD-EPI Study Refit equation without the race variable for the IDMS-Traceable creatinine methods.https://jasn.asnjournals.org/content/early// N.3651143030 Performed By: #### 2 4362-6 ####DERRICK Hall ([id number])[facility] ([facility])[address] [place] [address] Glucose [Mass/Vol] 221 mg/dL High 74-99 [facility] Comment on above: Performed By: #### 2 4362-6 ####DERRICK Hall ([id number])[facility] ([facility])[address] [place] [address] Phosphate [Mass/Vol] 2.9 mg/dL Normal 2.5-4.9 [facility] Comment on above: Performed By: #### 2 4362-6 ####DERRICK Hall ([id number])[facility] ([facility])[address] [place] [address] Potassium [Moles/Vol] 4.1 mmol/L Normal 3.5-5.3 [facility] Comment on above: Performed By: #### 2 4362-6 ####DERRICK Hall ([id number])[facility] ([facility])[address] [place] [address] Sodium [Moles/Vol] 133 mmol/L Low 136-145 [facility] Comment on above: Performed By: #### 2 4362-6 ####DERRICK Hall ([id number])[facility] ([facility])[address] [place] [address] Urea nitrogen [Mass/Vol] 13 mg/dL Normal 6-23 [facility] Comment on above: Performed By: #### 2 4362-6 ####DERRICK Hall ([id number])[facility] ([facility])[address] [place] [address] Albumin BCP dye [Mass/Vol] 3.0 g/dL Low 3.4 - 5.0 g/dL [facility] Anion gap [Moles/Vol] 12 mmol/L 10 - 2 0 mmol/L [facility] Calcium [Mass/Vol] 9.3 mg/dL 8.6 - 10. 6 mg/dL [facility] Chloride [Moles/Vol] 100 mmol/L 98 - 10 7 mmol/L [facility] CO2 [Moles/Vol] 27 mmol/L 21 - 32 mmol/L [facility] Creatinine [Mass/Vol] 0.59 mg/dL 0.50 - 1.05 mg/dL [facility] eGFR - PINF [facility] Glucose [Mass/Vol] 186 mg/dL High 74 - 99 mg/dL [facility] Interpretation and review of laboratory results Abnormal [facility] Phosphate [Mass/Vol] 3.6 mg/dL 2.5 - 4 .9 mg/dL [facility] Potassium [Moles/Vol] 4.5 mmol/L 3.5 - 5.3 mmol/L [facility] Sodium [Moles/Vol] 134 mmol/L Low 136 - 145 mmol/L [facility] Urea nitrogen [Mass/Vol] 12 mg/dL 6 - 23 mg/dL [facility] Albumin BCP dye [Mass/Vol] 3.0 g/dL Low 3.4-5.0 [facility] Comment on above: Performed By: #### 2 4362-6 ####DERRICK Hall ([id number])[facility] ([facility])[address] [place] [address] Anion gap [Moles/Vol] 12 mmol/L Normal 10-20 [facility] Comment on above: Performed By: #### 2 4362-6 ####DERRICK Hall ([id number])[facility] ([facility])[address] [place] [address] Calcium [Mass/Vol] 9.3 mg/dL Normal 8.6-10.6 [facility] Comment on above: Performed By: #### 2 4362-6 ####DERRICK Hall ([id number])[facility] ([facility])[address] [place] [address] Chloride [Moles/Vol] 100 mmol/L Normal 98-107 [facility] Comment on above: Performed By: #### 2 4362-6 ####DERRICK Hall ([id number])[facility] ([facility])[address] [place] [address] CO2 [Moles/Vol] 27 mmol/L Normal 21-[address] [facility] Comment on above: Performed By: #### 2 4362-6 ####DERRICK Hall ([id number])[facility] ([facility])[address] [place] [address] Creatinine [Mass/Vol] 0.59 mg/dL Normal 0.50-1.05 [facility] Comment on above: Performed By: #### 2 4362-6 ####DERRICK Hall ([id number])[facility] ([facility])[address] [place] [address] Glomerular filtration rate >90 Normal >60 [facility] Comment on above: Result Comment: Calc ulations of estimated GFR are performed using the 2020 CKD-EPI Study Refit equation without the race variable for the IDMS-Traceable creatinine methods.https://jasn.asnjournals.org/content// N.[id number] Performed By: #### 2 4362-6 ####DERRICK Hall ([id number])[facility] ([facility])[address] [place] [address] Glucose [Mass/Vol] 186 mg/dL High 74-99 [facility] Comment on above: Performed By: #### 2 4362-6 ####DERRICK Hall ([id number])[facility] ([facility])[address] [place] [address] Phosphate [Mass/Vol] 3.6 mg/dL Normal 2.5-4.9 [facility] Comment on above: Performed By: #### 2 4362-6 ####DERRICK Hall ([id number])[facility] ([facility])[address] [place] [address] Potassium [Moles/Vol] 4.5 mmol/L Normal 3.5-5.3 [facility] Comment on above: Performed By: #### 2 4362-6 ####DERRICK Hall ([id number])[facility] ([facility])[address] [place] [address] Sodium [Moles/Vol] 134 mmol/L Low 136-145 [facility] Comment on above: Performed By: #### 2 4362-6 ####DERRICK Hall ([id number])[facility] ([facility])[address] [place] [address] Urea nitrogen [Mass/Vol] 12 mg/dL Normal 6-23 [facility] Comment on above: Performed By: #### 2 4362-6 ####DERRICK Hall ([id number])[facility] ([facility])[address] [place] [address] Staphylococcus aureus.methic illin resistant isolateon 04-04-2025 MRSA isol Org specific cx Ql (Nose) Normal [facility] Comment on above: Performed By: #### 5 2969-3 ####DERRICK Hall ([id number])[facility] ([facility])[address] [place] [address] XR CHEST 1 VIEWon 04-04-2025 XR CHEST 1 VIEW Normal [facility] XR Chest Single viewon 04-04 [facility] MMODAL [facility] MM[facility]AL [facility] Work Phone: [facility] Work Phone: Radiology Study observation (narrative) [facility] Work Phone: Bacteria identified Cx Nom ( Body fld)Ordered By: Gissel Taylor on 04-03-2025 Microscopic observation Gram stain Nom (Unsp spec) (2+) Few Polymorphonuclear leukocytes [facility] Microscopic observation Gram stain Nom (Unsp spec) No organisms seen [facility] CBC W Auto Differential pane l (Bld)on 04-03-2025 Basophils (Bld) [#/Vol] 0.03 10*3/uL [facility] Basophils/100 WBC (Bld) 0.3 % 0.0 - 2.0 % [facility] Eosinophils (Bld) [#/Vol] 0.27 10*3/uL [facility] Eosinophils/100 WBC (Bld) 2.7 % 0.0 - 6.0 % [facility] Erythrocyte distribution width (RBC) [Ratio] 13.1 % 11.5 - 14.5 % [facility] Hematocrit (Bld) [Volume fraction] 41.8 % 36.0 - 46.0 % [facility] Hemoglobin (Bld) [Mass/Vol] 12.8 g/dL 12.0 - 16.0 g/dL [facility] Immature granulocytes (Bld) [#/Vol] 0.06 10*3/uL [facility] Immature granulocytes/100 WBC (Bld) 0.6 % 0.0 - 0.9 % [facility] Interpretation and review of laboratory results Abnormal [facility] Lymphocytes (Bld) [#/Vol] 1.04 10*3/uL Low [facility] Lymphocytes/100 WBC (Bld) 10.5 % 13.0 - 44.0 % [facility] MCH (RBC) [Entitic mass] 30.6 pg 26.0 - 34.0 pg [facility] MCHC (RBC) [Mass/Vol] 30.6 g/dL Low 32.0 - 36.0 g/dL [facility] MCV (RBC) [Entitic vol] 100 fL 80 - 100 fL [facility] Monocytes (Bld) [#/Vol] 0.76 10*3/uL [facility] Monocytes/100 WBC (Bld) 7.7 % 2.0 - 10.0 % [facility] Neutrophils (Bld) [#/Vol] 7.75 10*3/uL High [facility] Neutrophils/100 WBC (Bld) 78.2 % 40.0 - 80.0 % [facility] Nucleated RBC/100 WBC (Bld) [Ratio] 0.0 % [facility] Platelets (Bld) [#/Vol] 182 10*3/uL [facility] RBC (Bld) [#/Vol] 4.18 10*6/uL [facility] WBC (Bld) [#/Vol] 9.9 10*3/uL [facility] Basophils (Bld) [#/Vol] 0.03 x10*3/uL Normal 0.00-0.10 [facility] Comment on above: Performed By: #### 5 7021-8 ####DERRICK Hall ([id number])[facility] ([facility])[address] [place] [address] Basophils/100 WBC (Bld) 0.3 % Normal 0.0-2.0 [facility] Comment on above: Performed By: #### 5 7021-8 ####DERRICK Hall ([id number])[facility] ([facility])[address] [place] [address] Eosinophils (Bld) [#/Vol] 0.27 x10*3/uL Normal 0.00-0.70 [facility] Comment on above: Performed By: #### 5 7021-8 ####DERRICK Hall ([id number])[facility] ([facility])[address] [place] [address] Eosinophils/100 WBC (Bld) 2.7 % Normal 0.0-6.0 [facility] Comment on above: Performed By: #### 5 7021-8 ####DERRICK Hall ([id number])[facility] ([facility])[address] [place] [address] Erythrocyte distribution width (RBC) [Ratio] 13.1 % Normal 11.5-14.5 [facility] Comment on above: Performed By: #### 5 7021-8 ####DERRICK Hall ([id number])[facility] ([facility])[address] [place] [address] Hematocrit (Bld) [Volume fraction] 41.8 % Normal 36.0-46.0 [facility] Comment on above: Performed By: #### 5 7021-8 ####DERRICK Hall ([id number])[facility] ([facility])[address] [place] [address] Hemoglobin (Bld) [Mass/Vol] 12.8 g/dL Normal 12.0-16.0 [facility] Comment on above: Performed By: #### 5 7021-8 ####DERRICK BRAR L ([id number])[facility] ([facility])[address] [place] [address] Immature granulocytes (Bld) [#/Vol] 0.06 x10*3/uL Normal 0.00-0.70 [facility] Comment on above: Performed By: #### 5 7021-8 ####DERRICK Hall ([id number])[facility] ([facility])[address] [place] [address] Immature granulocytes/100 WBC (Bld) 0.6 % Normal 0.0-0.9 [facility] Comment on above: Result Comment: Arlen ture Granulocyte Count (IG) includes promyelocytes, myelocytes and metamyelocytes but does not include bands. Percent differential counts (%) should be interpreted in the context of the absolute cell counts (cells/UL). Performed By: #### 5 7021-8 ####DERRICK Hall ([id number])[facility] ([facility])[address] [place] [address] Lymphocytes (Bld) [#/Vol] 1.04 x10*3/uL Low 1.20-4.80 [facility] Comment on above: Performed By: #### 5 7021-8 ####DERRICK Hall ([id number])[facility] ([facility])[address] [place] [address] Lymphocytes/100 WBC (Bld) 10.5 % Normal 13.0-44.0 [facility] Comment on above: Performed By: #### 5 7021-8 ####DERRICK Hall ([id number])[facility] ([facility])[address] [place] [address] MCH (RBC) [Entitic mass] 30.6 pg Normal 26.0-34.0 [facility] Comment on above: Performed By: #### 5 7021-8 ####DERRICK Hall ([id number])[facility] ([facility])[address] [place] [address] MCHC (RBC) [Mass/Vol] 30.6 g/dL Low 32.0-36.0 [facility] Comment on above: Performed By: #### 5 7021-8 ####DERRICK Hall ([id number])[facility] ([facility])[address] [place] [address] MCV (RBC) [Entitic vol] 100 fL Normal 80-100 [facility] Comment on above: Performed By: #### 5 7021-8 ####DERRICK Hall ([id number])[facility] ([facility])[address] [place] [address] Monocytes (Bld) [#/Vol] 0.76 x10*3/uL Normal 0.10-1.00 [facility] Comment on above: Performed By: #### 5 7021-8 ####DERRICK Hall ([id number])[facility] ([facility])[address] [place] [address] Monocytes/100 WBC (Bld) 7.7 % Normal 2.0-10.0 [facility] Comment on above: Performed By: #### 5 7021-8 ####DERRICK Hall ([id number])[facility] ([facility])[address] [place] [address] Neutrophils (Bld) [#/Vol] 7.75 x10*3/uL High 1.20-7.70 [facility] Comment on above: Result Comment: Perc ent differential counts (%) should be interpreted in the context of the absolute cell counts (cells/uL). Performed By: #### 5 7021-8 ####DERRICK Hall ([id number])[facility] ([facility])[address] [place] [address] Neutrophils/100 WBC (Bld) 78.2 % Normal 40.0-80.0 [facility] Comment on above: Performed By: #### 5 7021-8 ####DERRICK Hall ([id number])[facility] ([facility])[address] [place] [address] Nucleated RBC/100 WBC (Bld) [Ratio] 0.0 /100 WBCs Normal 0.0-0.0 [facility] Comment on above: Performed By: #### 5 7021-8 ####DERRICK Hall ([id number])[facility] ([facility])[address] [place] [address] Platelets (Bld) [#/Vol] 182 x10*3/uL Normal 150-450 [facility] Comment on above: Performed By: #### 5 7021-8 ####DERRICK Hall ([id number])[facility] ([facility])[address] [place] [address] RBC (Bld) [#/Vol] 4.18 x10*6/uL Normal 4.00-5.20 [facility] Comment on above: Performed By: #### 5 7021-8 ####DERRICK Hall ([id number])[facility] ([facility])[address] [place] [address] WBC (Bld) [#/Vol] 9.9 x10*3/uL Normal 4.4-11.3 [facility] Comment on above: Performed By: #### 5 7021-8 ####DERRICK Hall ([id number])[facility] ([facility])[address] [place] [address] Glucose Test strip manual (B ld) [Mass/Vol]on 04-03-2025 Glucose [Mass/Vol] 227 mg/dL High 74 - 99 mg/dL [facility] Interpretation and review of laboratory results Abnormal [facility] Glucose [Mass/Vol] 227 mg/dL High 74-99 [facility] Comment on above: Performed By: #### 2 341-6 ####DERRICK Hall ([id number])[facility] ([facility])[address] [place] [address] Glucose [Mass/Vol] 168 mg/dL High 74 - 99 mg/dL [facility] Interpretation and review of laboratory results Abnormal [facility] Glucose [Mass/Vol] 168 mg/dL High 74-99 [facility] Comment on above: Performed By: #### 2 341-6 ####DERRICK Hall ([id number])[facility] ([facility])[address] [place] [address] Glucose [Mass/Vol] 226 mg/dL High 74 - 99 mg/dL [facility] Interpretation and review of laboratory results Abnormal [facility] Glucose [Mass/Vol] 226 mg/dL High 74-99 [facility] Comment on above: Performed By: #### 2 341-6 ####DERRICK Hall ([id number])[facility] ([facility])[address] [place] [address] Glucose [Mass/Vol] 178 mg/dL High 74 - 99 mg/dL [facility] Interpretation and review of laboratory results Abnormal [facility] Glucose [Mass/Vol] 178 mg/dL High 74-99 [facility] Comment on above: Performed By: #### 2 341-6 ####DERRICK Hall ([id number])[facility] ([facility])[address] [place] [address] Magnesiumon 04-03-2025 Magnesium [Mass/Vol] 1.98 mg/dL 1.60 - 2.40 mg/dL [facility] Magnesium [Mass/Vol] 1.98 mg/dL Normal 1.60-2.40 [facility] Comment on above: Performed By: #### 1 9123-9 ####DERRICK Hall ([id number])[facility] ([facility])[address] [place] [address] Magnesium [Mass/Vol]on 04-03 Interpretation and review of laboratory results Normal [facility] No Panel Informationon 04-03 [facility] Renal function 2000 panelon 04-03-2025 Albumin BCP dye [Mass/Vol] 3.2 g/dL Low 3.4 - 5.0 g/dL [facility] Anion gap [Moles/Vol] 14 mmol/L 10 - 2 0 mmol/L [facility] Calcium [Mass/Vol] 9.4 mg/dL 8.6 - 10. 6 mg/dL [facility] Chloride [Moles/Vol] 96 mmol/L Low 98 - 10 7 mmol/L [facility] CO2 [Moles/Vol] 28 mmol/L 21 - 32 mmol/L [facility] Creatinine [Mass/Vol] 0.57 mg/dL 0.50 - 1.05 mg/dL [facility] eGFR - PINF [facility] Glucose [Mass/Vol] 170 mg/dL High 74 - 99 mg/dL [facility] Interpretation and review of laboratory results Abnormal [facility] Phosphate [Mass/Vol] 2.8 mg/dL 2.5 - 4 .9 mg/dL [facility] Potassium [Moles/Vol] 3.9 mmol/L 3.5 - 5.3 mmol/L [facility] Sodium [Moles/Vol] 134 mmol/L Low 136 - 145 mmol/L [facility] Urea nitrogen [Mass/Vol] 13 mg/dL 6 - 23 mg/dL [facility] Albumin BCP dye [Mass/Vol] 3.2 g/dL Low 3.4-5.0 [facility] Comment on above: Performed By: #### 2 4362-6 ####DERRICK Hall ([id number])[facility] ([facility])[address] [place] [address] Anion gap [Moles/Vol] 14 mmol/L Normal 10-20 [facility] Comment on above: Performed By: #### 2 4362-6 ####DERRICK Hall ([id number])[facility] ([facility])[address] [place] [address] Calcium [Mass/Vol] 9.4 mg/dL Normal 8.6-10.6 [facility] Comment on above: Performed By: #### 2 4362-6 ####DERRICK Hall ([id number])[facility] ([facility])[address] [place] [address] Chloride [Moles/Vol] 96 mmol/L Low 98-107 [facility] Comment on above: Performed By: #### 2 4362-6 ####DERRICK Hall ([id number])[facility] ([facility])[address] [place] [address] CO2 [Moles/Vol] 28 mmol/L Normal 21-[address] [facility] Comment on above: Performed By: #### 2 4362-6 ####DERRICK Hall ([id number])[facility] ([facility])[address] [place] [address] Creatinine [Mass/Vol] 0.57 mg/dL Normal 0.50-1.05 [facility] Comment on above: Performed By: #### 2 4362-6 ####DERRICK Hall ([id number])[facility] ([facility])[address] [place] [address] Glomerular filtration rate >90 Normal >60 [facility] Comment on above: Result Comment: Calc ulations of estimated GFR are performed using the 2020 CKD-EPI Study Refit equation without the race variable for the IDMS-Traceable creatinine methods.https://jasn.asnjournals.org/content/early// N.6560835376 Performed By: #### 2 4362-6 ####DERRICK Hall ([id number])[facility] ([facility])[address] [place] [address] Glucose [Mass/Vol] 170 mg/dL High 74-99 [facility] Comment on above: Performed By: #### 2 4362-6 ####DERRICK Hall ([id number])[facility] ([facility])[address] [place] [address] Phosphate [Mass/Vol] 2.8 mg/dL Normal 2.5-4.9 [facility] Comment on above: Performed By: #### 2 4362-6 ####DERRICK Hall ([id number])[facility] ([facility])[address] [place] [address] Potassium [Moles/Vol] 3.9 mmol/L Normal 3.5-5.3 [facility] Comment on above: Performed By: #### 2 4362-6 ####DERRICK Hall ([id number])[facility] ([facility])[address] [place] [address] Sodium [Moles/Vol] 134 mmol/L Low 136-145 [facility] Comment on above: Performed By: #### 2 4362-6 ####DERRICK Hall ([id number])[facility] ([facility])[address] [place] [address] Urea nitrogen [Mass/Vol] 13 mg/dL Normal 6-23 [facility] Comment on above: Performed By: #### 2 4362-6 ####DERRICK Hall ([id number])[facility] ([facility])[address] [place] [address] Albumin BCP dye [Mass/Vol] 2.9 g/dL Low 3.4 - 5.0 g/dL [facility] Anion gap [Moles/Vol] 11 mmol/L 10 - 2 0 mmol/L [facility] Calcium [Mass/Vol] 9.1 mg/dL 8.6 - 10. 6 mg/dL [facility] Chloride [Moles/Vol] 100 mmol/L 98 - 10 7 mmol/L [facility] CO2 [Moles/Vol] 28 mmol/L 21 - 32 mmol/L [facility] Creatinine [Mass/Vol] 0.57 mg/dL 0.50 - 1.05 mg/dL [facility] eGFR - PINF [facility] Glucose [Mass/Vol] 173 mg/dL High 74 - 99 mg/dL [facility] Interpretation and review of laboratory results Abnormal [facility] Phosphate [Mass/Vol] 3.1 mg/dL 2.5 - 4 .9 mg/dL [facility] Potassium [Moles/Vol] 4.2 mmol/L 3.5 - 5.3 mmol/L [facility] Sodium [Moles/Vol] 135 mmol/L Low 136 - 145 mmol/L [facility] Urea nitrogen [Mass/Vol] 12 mg/dL 6 - 23 mg/dL [facility] Albumin BCP dye [Mass/Vol] 2.9 g/dL Low 3.4-5.0 [facility] Comment on above: Performed By: #### 2 4362-6 ####DERRICK Hall ([id number])[facility] ([facility])[address] [place] [address] Anion gap [Moles/Vol] 11 mmol/L Normal 10-20 [facility] Comment on above: Performed By: #### 2 4362-6 ####DERRICK Hall ([id number])[facility] ([facility])[address] [place] [address] Calcium [Mass/Vol] 9.1 mg/dL Normal 8.6-10.6 [facility] Comment on above: Performed By: #### 2 4362-6 ####DERRICK BRAR L ([id number])[facility] ([facility])[address] [place] [address] Chloride [Moles/Vol] 100 mmol/L Normal 98-107 [facility] Comment on above: Performed By: #### 2 4362-6 ####DERRICK Hall ([id number])[facility] ([facility])[address] [place] [address] CO2 [Moles/Vol] 28 mmol/L Normal 21-[address] [facility] Comment on above: Performed By: #### 2 4362-6 ####DERRICK Hall ([id number])[facility] ([facility])[address] [place] [address] Creatinine [Mass/Vol] 0.57 mg/dL Normal 0.50-1.05 [facility] Comment on above: Performed By: #### 2 4362-6 ####DERRICK BRAR L ([id number])[facility] ([facility])[address] [place] [address] Glomerular filtration rate >90 Normal >60 [facility] Comment on above: Result Comment: Calc ulations of estimated GFR are performed using the 2020 CKD-EPI Study Refit equation without the race variable for the IDMS-Traceable creatinine methods.https://jasn.asnjournals.org/content/early// N.1987281933 Performed By: #### 2 4362-6 ####DERRICK Hall ([id number])[facility] ([facility])[address] [place] [address] Glucose [Mass/Vol] 173 mg/dL High 74-99 [facility] Comment on above: Performed By: #### 2 4362-6 ####DERRICK Hall ([id number])[facility] ([facility])[address] [place] [address] Phosphate [Mass/Vol] 3.1 mg/dL Normal 2.5-4.9 [facility] Comment on above: Performed By: #### 2 4362-6 ####DERRICK Hall ([id number])[facility] ([facility])[address] [place] [address] Potassium [Moles/Vol] 4.2 mmol/L Normal 3.5-5.3 [facility] Comment on above: Performed By: #### 2 4362-6 ####DERRICK Hall (56825)[facility] ([facility])[address] [place] [address] Sodium [Moles/Vol] 135 mmol/L Low 136-145 [facility] Comment on above: Performed By: #### 2 4362-6 ####DERRICK Hall (51001)[facility] ([facility])[address] [place] [address] Urea nitrogen [Mass/Vol] 12 mg/dL Normal 6-23 [facility] Comment on above: Performed By: #### 2 4362-6 ####DERRICK Hall ([id number])[facility] ([facility])[address] [place] [address] Sterile Fluid Culture/SmearO rdered By: Gissel Taylor on 04-03-2025 Bacteria identified Cx Nom (Body fld) No growth aerobically and anaerobically [facility] XR CHEST 1 VIEWon 04-03-2025 XR CHEST 1 VIEW Normal [facility] XR Chest Single viewon 04-03 U[facility] MMODAL UH MMODAL [facility] Work Phone: [facility] Work Phone: Radiology Study observation (narrative) [facility] Work Phone: CBC W Auto Differential pane l (Bld)on 04-02-2025 Basophils (Bld) [#/Vol] 0.03 10*3/uL [facility] Basophils/100 WBC (Bld) 0.3 % 0.0 - 2.0 % [facility] Eosinophils (Bld) [#/Vol] 0.23 10*3/uL [facility] Eosinophils/100 WBC (Bld) 2.5 % 0.0 - 6.0 % [facility] Erythrocyte distribution width (RBC) [Ratio] 13.2 % 11.5 - 14.5 % [facility] Hematocrit (Bld) [Volume fraction] 41.5 % 36.0 - 46.0 % [facility] Hemoglobin (Bld) [Mass/Vol] 13.1 g/dL 12.0 - 16.0 g/dL [facility] Immature granulocytes (Bld) [#/Vol] 0.06 10*3/uL [facility] Immature granulocytes/100 WBC (Bld) 0.6 % 0.0 - 0.9 % [facility] Interpretation and review of laboratory results Abnormal [facility] Lymphocytes (Bld) [#/Vol] 1.06 10*3/uL Low [facility] Lymphocytes/100 WBC (Bld) 11.4 % 13.0 - 44.0 % [facility] MCH (RBC) [Entitic mass] 31.3 pg 26.0 - 34.0 pg [facility] MCHC (RBC) [Mass/Vol] 31.6 g/dL Low 32.0 - 36.0 g/dL [facility] MCV (RBC) [Entitic vol] 99 fL 80 - 100 fL [facility] Monocytes (Bld) [#/Vol] 0.72 10*3/uL [facility] Monocytes/100 WBC (Bld) 7.8 % 2.0 - 10.0 % [facility] Neutrophils (Bld) [#/Vol] 7.18 10*3/uL [facility] Neutrophils/100 WBC (Bld) 77.4 % 40.0 - 80.0 % [facility] Nucleated RBC/100 WBC (Bld) [Ratio] 0.0 % [facility] Platelets (Bld) [#/Vol] 188 10*3/uL [facility] RBC (Bld) [#/Vol] 4.18 10*6/uL [facility] WBC (Bld) [#/Vol] 9.3 10*3/uL [facility] Basophils (Bld) [#/Vol] 0.03 x10*3/uL Normal 0.00-0.10 [facility] Comment on above: Performed By: #### 5 [id number] ####DERRICK Hall ([id number])[facility] ([facility])[address] [place] [id number] Basophils/100 WBC (Bld) 0.3 % Normal 0.0-2.0 [facility] Comment on above: Performed By: #### 5 7021-8 ####DERRICK Hall ([id number])[facility] ([facility])[id number] [place] [address]58 Eosinophils (Bld) [#/Vol] 0.23 x10*3/uL Normal 0.00-0.70 [facility] Comment on above: Performed By: #### 5 7021-8 ####DERRICK Hall ([id number])[facility] ([facility])[id number] [place] [address] 29034 Eosinophils/100 WBC (Bld) 2.5 % Normal 0.0-6.0 [facility] Comment on above: Performed By: #### 5 7021-8 ####DERRICK Hall ([id number])[facility] ([facility])[address] [place] [address]44 Erythrocyte distribution width (RBC) [Ratio] 13.2 % Normal 11.5-14.5 [facility] Comment on above: Performed By: #### 5 7021-8 ####DERRICK Hall ([id number])[facility] ([facility])[address] [place] [address] Hematocrit (Bld) [Volume fraction] 41.5 % Normal 36.0-46.0 [facility] Comment on above: Performed By: #### 5 7021-8 ####DERRICK Hall ([id number])[facility] ([facility])[address] [place] [address] Hemoglobin (Bld) [Mass/Vol] 13.1 g/dL Normal 12.0-16.0 [facility] Comment on above: Performed By: #### 5 7021-8 ####DERRICK Hall ([id number])[facility] ([facility])[id number] [place] [address]156 Immature granulocytes (Bld) [#/Vol] 0.06 x10*3/uL Normal 0.00-0.70 [facility] Comment on above: Performed By: #### 5 7021-8 ####DERRICK Hall ([id number])[facility] ([facility])[address] [place] [address]11 Immature granulocytes/100 WBC (Bld) 0.6 % Normal 0.0-0.9 [facility] Comment on above: Result Comment: Arlen ture Granulocyte Count (IG) includes promyelocytes, myelocytes and metamyelocytes but does not include bands. Percent differential counts (%) should be interpreted in the context of the absolute cell counts (cells/UL). Performed By: #### 5 7021-8 ####DERRICK Hall ([id number])[facility] ([facility])[address] [place] [address] Lymphocytes (Bld) [#/Vol] 1.06 x10*3/uL Low 1.20-4.80 [facility] Comment on above: Performed By: #### 5 7021-8 ####DERRICK Hall ([id number])[facility] ([facility])[address] [place] [address] Lymphocytes/100 WBC (Bld) 11.4 % Normal 13.0-44.0 [facility] Comment on above: Performed By: #### 5 7021-8 ####DERRICK Hall ([id number])[facility] ([facility])[address] [place] [address] MCH (RBC) [Entitic mass] 31.3 pg Normal 26.0-34.0 [facility] Comment on above: Performed By: #### 5 7021-8 ####DERRICK BRAR L ([id number])[facility] ([facility])[address] [place] [address] MCHC (RBC) [Mass/Vol] 31.6 g/dL Low 32.0-36.0 [facility] Comment on above: Performed By: #### 5 7021-8 ####DERRICK BRAR L ([id number])[facility] ([facility])[address] [place] [address] MCV (RBC) [Entitic vol] 99 fL Normal 80-100 [facility] Comment on above: Performed By: #### 5 7021-8 ####DERRICK Hall ([id number])[facility] ([facility])[address] [place] [address] Monocytes (Bld) [#/Vol] 0.72 x10*3/uL Normal 0.10-1.00 [facility] Comment on above: Performed By: #### 5 7021-8 ####DERRICK Hall ([id number])[facility] ([facility])[address] [place] [address] Monocytes/100 WBC (Bld) 7.8 % Normal 2.0-10.0 [facility] Comment on above: Performed By: #### 5 7021-8 ####DERRICK BRAR L ([id number])[facility] ([facility])[address] [place] [address] Neutrophils (Bld) [#/Vol] 7.18 x10*3/uL Normal 1.20-7.70 [facility] Comment on above: Result Comment: Perc ent differential counts (%) should be interpreted in the context of the absolute cell counts (cells/uL). Performed By: #### 5 7021-8 ####DERRICK ALVESTZER L ([id number])[facility] ([facility])[address] [place] [address] Neutrophils/100 WBC (Bld) 77.4 % Normal 40.0-80.0 [facility] Comment on above: Performed By: #### 5 7021-8 ####DERRICK BRAR L ([id number])[facility] ([facility])[address] [place] [address] Nucleated RBC/100 WBC (Bld) [Ratio] 0.0 /100 WBCs Normal 0.0-0.0 [facility] Comment on above: Performed By: #### 5 7021-8 ####DERRICK BRAR L ([id number])[facility] ([facility])[address] [place] [address] Platelets (Bld) [#/Vol] 188 x10*3/uL Normal 150-450 [facility] Comment on above: Performed By: #### 5 7021-8 ####DERRICK BRAR L ([id number])[facility] ([facility])[address] [place] [address] RBC (Bld) [#/Vol] 4.18 x10*6/uL Normal 4.00-5.20 [facility] Comment on above: Performed By: #### 5 7021-8 ####DERRICK CHOUDHARYMOGAY L ([id number])[facility] ([facility])[address] [place] [address] WBC (Bld) [#/Vol] 9.3 x10*3/uL Normal 4.4-11.3 [facility] Comment on above: Performed By: #### 5 7021-8 ####DERRICK CHOUDHARYMOTZER L ([id number])[facility] ([facility])[address] [place] [address] Cancer related large scale g antwan targeted mutation analysis Molgen Doc (Bld/Tiss)Ordered By: Nael Ramirez on 04-02-2025 Electronically signed and reported by Nael Ramirez MD [facility] Work Phone: Focused Solid Tumor DNA/RNA Results s2nqqSNbDSKpiKUnEMTbGjqeht WfQDLtlNCvP2FhbtzrDJxzZL0b VV7faAxtyLKujLArHHDxIhAqr6 hxj223lVTns1tgFKKUWXhaRJYO UUu2lCnsU30hu5X6DdqkD23geK WrBBK4FXMmDNUagQSkHGPuONJ6 QEKpfVMkN9ndNWQwUF5jnwvjMJ rqVOocCWYcuDE4NDKmpDQqK9Ky YKZmCMehSKNsmhy1QsBmAb3jlP VyeTcyMFxwYXJkXHBsYWluXGZz DxHnA8XwL1stFG32XNG3nEOitg N3IJ59RYBCNmPpIrV1DdfgMDOl sLTxJEDslClpUCOyHNZPjC6yza FCz256TQ29VgKoWTZihUPlTMCb bqAUNIOYX4ULIMTMLAbDSGURJA CVUUL8DO0yF7Otm0J2FVsuvGCc GJaxe2PrNroogBH9BTefG2rxMV 9ZJL6DCCTcvgLAJ4GfFEDNKOKV RUQuXHBhclxwYXJccGFyIERJU0 YFH5PeYGEZI9BHALGWGLFWYI5R TUlDIEZJTkRJTkdTOiBccGFyIE VUC77yZUMwSlApFbYqRQgYXH1l VULqXqdcFf2vZTqRMvIfSLSzak FFUjBUMQAnqSlqWpwmKPJre02i jNRwETpAQVZokC9TFQMVYTaQDM 0iOwCrXaKxRc9dTVk+VClccGFy XHBhciBJTlRFUlBSRVRBVElPTi XPEwBkUK8QGW1EYYNGCVFUHMFE JUCEFBkIAV7HKGxHUoG9ZDUajn OHDoFAZDEbCwCvX2bgJRLdUhTW YCXSP55MDOQSBWCYWY0GKmBgPI V7LG4uDFYpMw9aBAPlWNohNIMw iOvxJNTeEvRFOT7iGGLzQnnxUO CxMFGkE5Xto1grDRxCoIHeHIG5 JI19RShbVYZfd777j1Afr3rtCC uFdFJvTNV0UG57DFciNLZwjRLl LGEJJ3JMG6UnBvSWVQEJOgEeYD bJJJEHRHoDLyAaGx8BJPRMCOWD YQNHSsYphZWdUQ7iZ8B5sWPtEB LplhADRTwoVwWptR6wCybnJKKu YbYdIRPvnfZpFo7wOQVRSKJqYm MgJFCdXDUzgrJOVOretBy9UPMn p5SlGStTQdZzSF3qfBDyrsqbHl JqbOGbhVuaoc6btABuNB6wS5J2 zCKaQCLwoqGHBgZXPeOuN5Btfr G7qM4eRX83hBT1jU9dERPszsYS RNhdgDw1MBObv2VxDIUPIXK7u0 8jFOWzl8yifIXfhbyyvRV0YMTa i08tUIVnifDXNGivoCt9DFGpp9 SzGfBATePkyNAdy92tQYWcpgMK QRhywVd8GODgs0JzRcHMZPM1h2 hpfl6daUMiQV2rN2T2hWAzMRTx wlKQS5UyQPT5k3koug8bwKTbWQ XqfjajMDQgLIxPS0zWID6YPutb SCPgriICkJnmANEui8R2YUtiGG Ibk8hjhrUxYJYdGHBcqTFmtOA5 TBUiPEPqHPZkjBaonBIovZv9MJ YcrMF7AP53CRIzpojfRVMdmZEo QJ63jSOjVMYimalnimJzSLMvpb OnfsToi43mRR9dGEWalFU1tN2q roFdQUCjEjGcFAV3nQ9cQXWaKF 1wKEhbA7quW87ylWBqrK4vKZLf PW0hpCnfaIXwfLdyplMdUTDxMV C3ayNwd0rsV9V0sH8dxzPluvAs RVTyqPPpcWGmjz84aXWbHgNwFZ 6csh1jKAstrzVfx4TbjVNbv7Kh QF8mjNWibBI4eW1jpNzhoPBtRT A9RKJpKVAljOC2xDUcOC0bANmt za4iiM5fOBFboVIdIKLav77fZC yfECDaGWk9nnTsABYiM0qfjyKg EXDnsoMdQWTepuQsltJpwZh2NB fbfSRhwQdgfdCjl5BeaWInltBr QenvMPfaNM2pduWjb0JiovTkIE UeiSCzrKcdLBXdSUNlpgOwND3d EJFhkSD4BAMit68fIoDqo9ubeB kyXGttnUp0QD4pDDOwdNXotNpy yxQhGlK3iMvpRDBut3O9LMT5UR X4zuRml8zqdmPaxWrwl7QaFpIu AGtaPCTvdyGxopClVDJ9iD8jBF paaYGrd9kuyuFubXfyIO0vYJXx IPCvoqImWY3xXBOwUoYjNSSfiW fwgrEeEU77zCL6uQ6nuzCpfqW3 aGUgbGlzdGVkIGdlbmVzIHdoaW FhIDDjNMOuvFItwVAtCX7uFINk BAW9YHUnYOWudfCgfS5xbsFsim K0oIztPTYoz2M9KvUXDV0epkHd PRVtdSYkLHAkf14ccE3kvQ7lrx ChkTRvomforFThmQ58EUCpQLP0 gn6yxL4ysEJhYB9gKXzawPIjho gaNTHjffkwdmAzGBe8lYVmXJRh KYVfuLPvhUHkf68jm4Sri9BhgN BhJNGxhptpexBpOWMnyfGfgf22 IGdlbmVyYWxseSBpbmNsdWRlZC NozzS3dZqbLTXchM5ngU5aBUhi PW1TWH3WY23NKuPvHRXmW56mqX lvbiBpcyBiYXNlZCBvbiBhbmFs fBXqztJoFaH7jZR2ifDmWDWrt7 5vbnVjbGVvdGlkZSByZXBlYXQg eA8qfBMdgjTglh75VNGoj6DhKT 8eKLRrJAL7BM5xBZtnWBVRYNFu u3SddFGmGKMksgYbfLLzIM85II WoqN2hW7VcHCGhMZH5mPCwPTe7 hJYzqPryANNtVOEqWNF5dBHux2 wxuYWpVb3bDW1FCE5SJ51GOiG3 RYKcRVJ3QQBzvF2tIJBxrSKfnz NrlYNoH5NaHPOmwzTwlfOsihJb LFMsANLJSOUzJGdHJMSyp7E3dc W7s6mhWuCmKYsibBjyQ94vb6Pt Y5NfwLDbxpGsgEEmclmaWWUYVl KZUKVam4Y7TK5sHYhmBGJgiB7h F2UmVNNocYmwbYX9ZR0jDASsDY HkwNDlqGZhpEo5DGSCP8lsAMGj hJhrSSKym29pkXLgCO5luHErEM VuIGVzdGFibGlzaGVkLlxwYXJc uRQeDTvlRL19tCGsC1T3fL9lJD 5xPFZsy7XuJ3Eeh6DmP1MyR1Pp ATMyo45emYZ2MBYcaCN8SEAzo5 8bANGkLPOxyw54BL0hX1Ysm0Lg xIw5AAkzIQrsMYCmYZWukaFnvU 5un5QcvK1rvMkkkeCdaM9dSZEa W9jubW7upqImcuRuMAWlUF56UI YsomUvOF6vWUKtFFF3fPVjmFSt fFG3BDWmPSPmx0PkIJ6fGYRwGD RsgzKhmBLkNOGpuCXsVHEzG2Kb UDw2JPtuOQ98SD3sDWYzVRY3wa ZwiEwdQxPkfMeboVBlQO4zDOWx q3lxBaUmorLxNEQiL746tnPiKL bpMDSzmIplJ9LtaOOgrU6dk1Xt TITdc98wL61jR2KorsdbLeV2iN GakSZ0dXVrzUvuHOWlbcGwhKje ymWsiNOqODPzGIBgfV2bA4AyBT BuWKVvkOP6i1AorKirvN8guXHj EvlsZJdfE9IvTC51aZEdGKxiJy 7hAEYsxvbiRbpyGChuK8MsDHVg TPEhQFPaAD61QMInNGNrgoCvU5 TlIcCIaEmyMPUswK6cpBQiyxHq xYCmtsDzvkLdor5qsTzcikHxyy 2oMGC8PmogBwUip0LmL3JoAMRa yfOtxHQyntllm0LoBL82rKZuFz BhbmQgbWVkaWNhbCBsaXRlcmF0 dXJlIHRvIGJldHRlciBjaGFyYW K3FVFgesEjaXliUMDnX19vRpne AH8aRZDpOlJzvFOwnuX7fK5tby BfRSOqW9MxVW9iaKBjCDSenhGL oAewWIqkLf5dQOCoflbqSUV8SX ngjBJjCFWmu7Ixt4IdCYRpnoAn s4UuGGMowwSptZEgKTQhEGu5bA ikJQlwdYLpLc4pjFXcC9LkG5vo yoUpxFGnsBM9xVMeTBilvhSsZb KndeMsNJOlvm2mqyZkJIH5BCNQ LIRiDA7vsXO4sY2gZHaaHBSrj4 DefT6sfX9mQZouiwO9TAM0HCgv zuAbf7RmYeLbcpCngBJvydLoHV 9jKGHkrURttkJiEKH9HEVbELYS ZXB7KPmde8C8SFTjWMNqDZAEXO EgaGFzIGRldGVybWluZWQgdGhh dCBzdWNoIGFwcHJvdmFsIGlzIG 0nhXWdUUVjw9VucumaOLRxQYXW WHDPYJgqXLKevbLgWxclZRP3hy TvqqH2eHCyE5mfgbquCOmwLSPy x8FxhX8rnSJEdOMfw0BumAVutP YKuJIoMD5tppXtJM2cHDR6DKnw FFUKYCScPYhkRPOxTRO9KImeWa urFPQ4zoQmECVge4FiQGdfH7sl T29enOmgwDq6bUZ4OFP6uL0yBu xwYXJccGFyIFBBTkVMIEdFTkUg CZdZJVyudFIeIYdeaJXbu0FxHW K9COYpn79pHVurzvSbSSycLFWr psV3AqDqqMn9POJOPMRpYQCEMi yxLIDSMKVQXpUJSMZPUr7vEHHJ WOUhSKRCIsCvZPVSIRc1XNIZSX sKVyGkEZADLIHTLYjmS1PIIpFu INUSA1KNRELLTYOkAWpdYSYDSg IsIEVSQkIzLCBFUkJCNCwgRVNS MSwgRkJYVzcsIEZHRlIyLCBGR0 ADPlebS10IQTKfBOgZRKDkRTwh RjNBLCBISVNUMUgzQiwgSFJBUy wgSURIMSwgSURIMiwgSkFLMSwg ZuHEJyruPhERMkzaP7WMDLXpEO gBDOmpJ8GTPhnwYIECZwlgOWNS URNhTsSwTS9WDZgaRTWZBrrfCl ZFMkwyLCBOUkFTLCBQREdGUkEs XMMPOhYQQCzuPT2CPJoaOECPCy xlHhYBPBOSR0VrJLPDRNBXRHlw H8IGIQQfGQWNWxxqDWF1OdcqIC VTVuAfRYFwwtUNr0S5SG99nEXl wtHHEIKtME39snGwP0Edvmx0MA FMSywgQVIsIEJSQUYsIENDTkQx SNAYZTn1MWHXMYv5FIPCB0UOHR BFUkJCMiwgRkdGUjEsIEZHRlIy ALZXK7OUYglsQuhQLhGuRAvMLV xhU6NIPbupAOCCOJHNZEUrYO4M C78jELZCJ7ASQEfvPJaKW5UESo tyIYGyUdDkqX8awhJoBLTmlaNd IGdlbmVzKTogQUxLLCBCUkFGLC IGN2UHQZLBT3KFPZnvKdtAVqJj EVTGStArZWFAJZTkNN9GQfhyXY BOVFJLMiwgTlRSSzMsIFJFVCwg Ao3ERYboMZ7ISsZMHa6qfMHlRI IbzvPAK6bvS2UbpWGgWW7egnhr inQ3KH5uno9ahZNxEL71qZIzGM HhaCGjbPRxn2UtKtyfWJXdQq63 LTWixNOqgL0grzZaKsWtzXdeA2 FlXVVjRSWgMXGwzIXsvtZwDV5k X1Zsv35eOPVun8QbVhv2AJwmSh M3ETX7ZCIccWIuLXJsq6NqNKxu L05rGI41UJNjHHT8JOKrCI54CM NhbGxpbmcuXHBhclxwYXJccGFy fQ== [facility] Work Phone: [facility] Work Phone: Glucose Test strip manual (B ld) [Mass/Vol]on 04-02-2025 Glucose [Mass/Vol] 229 mg/dL High 74 - 99 mg/dL [facility] Interpretation and review of laboratory results Abnormal [facility] Glucose [Mass/Vol] 229 mg/dL High 74-99 [facility] Comment on above: Performed By: #### 2 341-6 ####DERRICK Hall ([id number])[facility] ([facility])[address] [place] [address] Glucose [Mass/Vol] 250 mg/dL High 74 - 99 mg/dL [facility] Interpretation and review of laboratory results Abnormal [facility] Glucose [Mass/Vol] 250 mg/dL High 74-99 [facility] Comment on above: Performed By: #### 2 341-6 ####DERRICK Hall ([id number])[facility] ([facility])[address] [place] [address] Glucose [Mass/Vol] 220 mg/dL High 74 - 99 mg/dL [facility] Interpretation and review of laboratory results Abnormal [facility] Glucose [Mass/Vol] 220 mg/dL High 74-99 [facility] Comment on above: Performed By: #### 2 341-6 ####DERRICK Hall ([id number])[facility] ([facility])[address] [place] [address] Glucose [Mass/Vol] 179 mg/dL High 74 - 99 mg/dL [facility] Interpretation and review of laboratory results Abnormal [facility] Glucose [Mass/Vol] 179 mg/dL High 74-99 [facility] Comment on above: Performed By: #### 2 341-6 ####DERRICK Hall ([id number])[facility] ([facility])[address] [place] [address] Magnesiumon 04-02-2025 Magnesium [Mass/Vol] 2.07 mg/dL 1.60 - 2.40 mg/dL [facility] Magnesium [Mass/Vol] 2.07 mg/dL Normal 1.60-2.40 [facility] Comment on above: Performed By: #### 1 9123-9 ####DERRICK Hall ([id number])[facility] ([facility])[address] [place] [address] Magnesium [Mass/Vol]on 04-02 Interpretation and review of laboratory results Normal [facility] NM Whole body Bone Viewson 0 04-02-2025 UH MMODAL UH MMODAL [facility] Work Phone: NM Whole body Bone ViewsOrde red By: Cinthia Ugalde on 04-02-2025 [facility] Work Phone: No Panel Informationon 04-02 [facility] Renal function 2000 panelon 04-02-2025 Albumin BCP dye [Mass/Vol] 3.1 g/dL Low 3.4 - 5.0 g/dL [facility] Anion gap [Moles/Vol] 12 mmol/L 10 - 2 0 mmol/L [facility] Calcium [Mass/Vol] 9.5 mg/dL 8.6 - 10. 6 mg/dL [facility] Chloride [Moles/Vol] 97 mmol/L Low 98 - 10 7 mmol/L [facility] CO2 [Moles/Vol] 29 mmol/L 21 - 32 mmol/L [facility] Creatinine [Mass/Vol] 0.61 mg/dL 0.50 - 1.05 mg/dL [facility] eGFR - PINF [facility] Glucose [Mass/Vol] 202 mg/dL High 74 - 99 mg/dL [facility] Interpretation and review of laboratory results Abnormal [facility] Phosphate [Mass/Vol] 2.8 mg/dL 2.5 - 4 .9 mg/dL [facility] Potassium [Moles/Vol] 4.0 mmol/L 3.5 - 5.3 mmol/L [facility] Sodium [Moles/Vol] 134 mmol/L Low 136 - 145 mmol/L [facility] Urea nitrogen [Mass/Vol] 12 mg/dL 6 - 23 mg/dL [facility] Albumin BCP dye [Mass/Vol] 3.1 g/dL Low 3.4-5.0 [facility] Comment on above: Performed By: #### 2 4362-6 ####DERRICK Hall ([id number])[facility] ([facility])[address] [place] [address] Anion gap [Moles/Vol] 12 mmol/L Normal 10-20 [facility] Comment on above: Performed By: #### 2 4362-6 ####DERRICK BRAR L ([id number])[facility] ([facility])[address] [place] [address] Calcium [Mass/Vol] 9.5 mg/dL Normal 8.6-10.6 [facility] Comment on above: Performed By: #### 2 4362-6 ####DERRICK ALVESTZCARIDAD L ([id number])[facility] ([facility])[address] [place] [address] Chloride [Moles/Vol] 97 mmol/L Low 98-107 [facility] Comment on above: Performed By: #### 2 4362-6 ####DERRICK BRAR L ([id number])[facility] ([facility])[address] [place] [address] CO2 [Moles/Vol] 29 mmol/L Normal 21-[address] [facility] Comment on above: Performed By: #### 2 4362-6 ####DERRICK BRAR L ([id number])[facility] ([facility])[address] [place] [address] Creatinine [Mass/Vol] 0.61 mg/dL Normal 0.50-1.05 [facility] Comment on above: Performed By: #### 2 4362-6 ####DERRICK BRAR L ([id number])[facility] ([facility])[address] [place] [address] Glomerular filtration rate >90 Normal >60 [facility] Comment on above: Result Comment: Calc ulations of estimated GFR are performed using the 2020 CKD-EPI Study Refit equation without the race variable for the IDMS-Traceable creatinine methods.https://jasn.asnjournals.org/content/early/ N.8288288377 Performed By: #### 2 4362-6 ####DERRICK BRAR L ([id number])[facility] ([facility])[address] [place] [address] Glucose [Mass/Vol] 202 mg/dL High 74-99 [facility] Comment on above: Performed By: #### 2 4362-6 ####DERRICK Hall ([id number])[facility] ([facility])[address] [place] [address] Phosphate [Mass/Vol] 2.8 mg/dL Normal 2.5-4.9 [facility] Comment on above: Performed By: #### 2 4362-6 ####DERRICK Hall ([id number])[facility] ([facility])[address] [place] [address] Potassium [Moles/Vol] 4.0 mmol/L Normal 3.5-5.3 [facility] Comment on above: Performed By: #### 2 4362-6 ####DERRICK Hall ([id number])[facility] ([facility])[address] [place] [address] Sodium [Moles/Vol] 134 mmol/L Low 136-145 [facility] Comment on above: Performed By: #### 2 4362-6 ####DERRICK Hall ([id number])[facility] ([facility])[address] [place] [address] Urea nitrogen [Mass/Vol] 12 mg/dL Normal 6-23 [facility] Comment on above: Performed By: #### 2 4362-6 ####DERRICK Hall ([id number])[facility] ([facility])[address] [place] [address] Albumin BCP dye [Mass/Vol] 3.1 g/dL Low 3.4 - 5.0 g/dL [facility] Anion gap [Moles/Vol] 13 mmol/L 10 - 2 0 mmol/L [facility] Calcium [Mass/Vol] 9.3 mg/dL 8.6 - 10. 6 mg/dL [facility] Chloride [Moles/Vol] 99 mmol/L 98 - 10 7 mmol/L [facility] CO2 [Moles/Vol] 28 mmol/L 21 - 32 mmol/L [facility] Creatinine [Mass/Vol] 0.49 mg/dL Low 0.50 - 1.05 mg/dL [facility] eGFR - PINF [facility] Glucose [Mass/Vol] 155 mg/dL High 74 - 99 mg/dL [facility] Interpretation and review of laboratory results Abnormal [facility] Phosphate [Mass/Vol] 3.1 mg/dL 2.5 - 4 .9 mg/dL [facility] Potassium [Moles/Vol] 4.6 mmol/L 3.5 - 5.3 mmol/L [facility] Sodium [Moles/Vol] 135 mmol/L Low 136 - 145 mmol/L [facility] Urea nitrogen [Mass/Vol] 10 mg/dL 6 - 23 mg/dL [facility] Albumin BCP dye [Mass/Vol] 3.1 g/dL Low 3.4-5.0 [facility] Comment on above: Performed By: #### 2 4362-6 ####DERRICK Hall ([id number])[facility] ([facility])[address] [place] [address] Anion gap [Moles/Vol] 13 mmol/L Normal 10-20 [facility] Comment on above: Performed By: #### 2 4362-6 ####DERRICK Hall ([id number])[facility] ([facility])[address] [place] [address] Calcium [Mass/Vol] 9.3 mg/dL Normal 8.6-10.6 [facility] Comment on above: Performed By: #### 2 4362-6 ####DERRICK Hall ([id number])[facility] ([facility])[address] [place] [address] Chloride [Moles/Vol] 99 mmol/L Normal 98-107 [facility] Comment on above: Performed By: #### 2 4362-6 ####DERRICK Hall ([id number])[facility] ([facility])[address] [place] [address] CO2 [Moles/Vol] 28 mmol/L Normal 21-[address] [facility] Comment on above: Performed By: #### 2 4362-6 ####DERRICK BRAR L ([id number])[facility] ([facility])[address] [place] [address] Creatinine [Mass/Vol] 0.49 mg/dL Low 0.50-1.05 [facility] Comment on above: Performed By: #### 2 4362-6 ####DERRICK BRAR L ([id number])[facility] ([facility])[address] [place] [address] Glomerular filtration rate >90 Normal >60 [facility] Comment on above: Result Comment: Calc ulations of estimated GFR are performed using the 2020 CKD-EPI Study Refit equation without the race variable for the IDMS-Traceable creatinine methods.https://jasn.asnjournals.org/content/early/ N.9755743893 Performed By: #### 2 4362-6 ####DERRICK Hall ([id number])[facility] ([facility])[address] [place] [address] Glucose [Mass/Vol] 155 mg/dL High 74-99 [facility] Comment on above: Performed By: #### 2 4362-6 ####DERRICK BRAR L ([id number])[facility] ([facility])[address] [place] [address] Phosphate [Mass/Vol] 3.1 mg/dL Normal 2.5-4.9 [facility] Comment on above: Performed By: #### 2 4362-6 ####DERRICK BRAR L ([id number])[facility] ([facility])[address] [place] [address] Potassium [Moles/Vol] 4.6 mmol/L Normal 3.5-5.3 [facility] Comment on above: Performed By: #### 2 4362-6 ####DERRICK BRAR L ([id number])[facility] ([facility])[address] [place] [address] Sodium [Moles/Vol] 135 mmol/L Low 136-145 [facility] Comment on above: Performed By: #### 2 4362-6 ####DERRICK Hall ([id number])[facility] ([facility])[address] [place] [address] Urea nitrogen [Mass/Vol] 10 mg/dL Normal 6- [facility] Comment on above: Performed By: #### 2 4362-6 ####DERRICK Hall ([id number])[facility] ([facility])[address] [place] [address] XR CHEST 1 VIEWon 04-02-2025 XR CHEST 1 VIEW Normal [facility] XR Chest Single viewon 04-02 [facility] MMODAL [facility] MMODAL [facility] Work Phone: [facility] Work Phone: Radiology Study observation (narrative) [facility] Work Phone: CBC W Auto Differential pane l (Bld)on 04-01-2025 Basophils (Bld) [#/Vol] 0.03 10*3/uL [facility] Basophils/100 WBC (Bld) 0.3 % 0.0 - 2.0 % [facility] Eosinophils (Bld) [#/Vol] 0.23 10*3/uL [facility] Eosinophils/100 WBC (Bld) 2.5 % 0.0 - 6.0 % [facility] Erythrocyte distribution width (RBC) [Ratio] 12.8 % 11.5 - 14.5 % [facility] Hematocrit (Bld) [Volume fraction] 41.1 % 36.0 - 46.0 % [facility] Hemoglobin (Bld) [Mass/Vol] 12.8 g/dL 12.0 - 16.0 g/dL [facility] Immature granulocytes (Bld) [#/Vol] 0.07 10*3/uL [facility] Immature granulocytes/100 WBC (Bld) 0.8 % 0.0 - 0.9 % [facility] Interpretation and review of laboratory results Abnormal [facility] [facility] Lymphocytes (Bld) [#/Vol] 1.22 10*3/uL [facility] Lymphocytes/100 WBC (Bld) 13.1 % 13.0 - 44.0 % [facility] MCH (RBC) [Entitic mass] 30.9 pg 26.0 - 34.0 pg [facility] MCHC (RBC) [Mass/Vol] 31.1 g/dL Low 32.0 - 36.0 g/dL [facility] MCV (RBC) [Entitic vol] 99 fL 80 - 100 fL [facility] Monocytes (Bld) [#/Vol] 0.66 10*3/uL [facility] Monocytes/100 WBC (Bld) 7.1 % 2.0 - 10.0 % [facility] Neutrophils (Bld) [#/Vol] 7.10 10*3/uL [facility] Neutrophils/100 WBC (Bld) 76.2 % 40.0 - 80.0 % [facility] Nucleated RBC/100 WBC (Bld) [Ratio] 0.0 % [facility] Platelets (Bld) [#/Vol] 179 10*3/uL [facility] RBC (Bld) [#/Vol] 4.14 10*6/uL [facility] WBC (Bld) [#/Vol] 9.3 10*3/uL [facility] Basophils (Bld) [#/Vol] 0.03 x10*3/uL Normal 0.00-0.10 [facility] Comment on above: Performed By: #### 5 7021-8 ####DERRICK Hall ([id number])[facility] ([facility])[address] [place] [address] Basophils/100 WBC (Bld) 0.3 % Normal 0.0-2.0 [facility] Comment on above: Performed By: #### 5 7021-8 ####DERRICK Hall ([id number])[facility] ([facility])[address] [place] [address] Eosinophils (Bld) [#/Vol] 0.23 x10*3/uL Normal 0.00-0.70 [facility] Comment on above: Performed By: #### 5 7021-8 ####DERRICK Hall ([id number])[facility] ([facility])[address] [place] [address] Eosinophils/100 WBC (Bld) 2.5 % Normal 0.0-6.0 [facility] Comment on above: Performed By: #### 5 7021-8 ####DERRICK Hall ([id number])[facility] ([facility])[address] [place] [address] Erythrocyte distribution width (RBC) [Ratio] 12.8 % Normal 11.5-14.5 [facility] Comment on above: Performed By: #### 5 7021-8 ####DERRICK Hall ([id number])[facility] ([facility])[address] [place] [address] Hematocrit (Bld) [Volume fraction] 41.1 % Normal 36.0-46.0 [facility] Comment on above: Performed By: #### 5 7021-8 ####DERRICK Hall ([id number])[facility] ([facility])[address] [place] [address] Hemoglobin (Bld) [Mass/Vol] 12.8 g/dL Normal 12.0-16.0 [facility] Comment on above: Performed By: #### 5 7021-8 ####DERRICK BRAR L ([id number])[facility] ([facility])[address] [place] [address] Immature granulocytes (Bld) [#/Vol] 0.07 x10*3/uL Normal 0.00-0.70 [facility] Comment on above: Performed By: #### 5 7021-8 ####DERRICK Hall ([id number])[facility] ([facility])[address] [place] [address] Immature granulocytes/100 WBC (Bld) 0.8 % Normal 0.0-0.9 [facility] Comment on above: Result Comment: Arlen ture Granulocyte Count (IG) includes promyelocytes, myelocytes and metamyelocytes but does not include bands. Percent differential counts (%) should be interpreted in the context of the absolute cell counts (cells/UL). Performed By: #### 5 7021-8 ####DERRICK Hall ([id number])[facility] ([facility])[address] [place] [address] Lymphocytes (Bld) [#/Vol] 1.22 x10*3/uL Normal 1.20-4.80 [facility] Comment on above: Performed By: #### 5 7021-8 ####DERRICK Hall ([id number])[facility] ([facility])[address] [place] [address] Lymphocytes/100 WBC (Bld) 13.1 % Normal 13.0-44.0 [facility] Comment on above: Performed By: #### 5 7021-8 ####DERRICK Hall ([id number])[facility] ([facility])[address] [place] [address] MCH (RBC) [Entitic mass] 30.9 pg Normal 26.0-34.0 [facility] Comment on above: Performed By: #### 5 7021-8 ####DERRICK Hall ([id number])[facility] ([facility])[address] [place] [address] MCHC (RBC) [Mass/Vol] 31.1 g/dL Low 32.0-36.0 [facility] Comment on above: Performed By: #### 5 7021-8 ####DERRICK BRAR L ([id number])[facility] ([facility])[address] [place] [address] MCV (RBC) [Entitic vol] 99 fL Normal 80-100 [facility] Comment on above: Performed By: #### 5 7021-8 ####DERRICK Hall ([id number])[facility] ([facility])[address] [place] [address] Monocytes (Bld) [#/Vol] 0.66 x10*3/uL Normal 0.10-1.00 [facility] Comment on above: Performed By: #### 5 7021-8 ####DERRICK CHOUDHARYMOTZER L ([id number])[facility] ([facility])[address] [place] [address] Monocytes/100 WBC (Bld) 7.1 % Normal 2.0-10.0 [facility] Comment on above: Performed By: #### 5 7021-8 ####DERRICK CHOUDHARYMOTZER L ([id number])[facility] ([facility])[address] [place] [address] Neutrophils (Bld) [#/Vol] 7.10 x10*3/uL Normal 1.20-7.70 [facility] Comment on above: Result Comment: Perc ent differential counts (%) should be interpreted in the context of the absolute cell counts (cells/uL). Performed By: #### 5 7021-8 ####DERRICK CHOUDHARYMOTZER L ([id number])[facility] ([facility])[address] [place] [address] Neutrophils/100 WBC (Bld) 76.2 % Normal 40.0-80.0 [facility] Comment on above: Performed By: #### 5 7021-8 ####DERRICK CHOUDHARYMOTZER L ([id number])[facility] ([facility])[address] [place] [address] Nucleated RBC/100 WBC (Bld) [Ratio] 0.0 /100 WBCs Normal 0.0-0.0 [facility] Comment on above: Performed By: #### 5 7021-8 ####DERRICK CHOUDHARYMOTZER L ([id number])[facility] ([facility])[address] [place] [address] Platelets (Bld) [#/Vol] 179 x10*3/uL Normal 150-450 [facility] Comment on above: Performed By: #### 5 7021-8 ####DERRICK CHOUDHARYMOTZER L ([id number])[facility] ([facility])[address] [place] [address] RBC (Bld) [#/Vol] 4.14 x10*6/uL Normal 4.00-5.20 [facility] Comment on above: Performed By: #### 5 7021-8 ####DERRICK Hall ([id number])[facility] ([facility])[address] [place] [address] WBC (Bld) [#/Vol] 9.3 x10*3/uL Normal 4.4-11.3 [facility] Comment on above: Performed By: #### 5 7021-8 ####DERRICK Hall ([id number])[facility] ([facility])[address] [place] [address] Glucose Test strip manual (B ld) [Mass/Vol]on 04-01-2025 Glucose [Mass/Vol] 193 mg/dL High 74 - 99 mg/dL [facility] Interpretation and review of laboratory results Abnormal [facility] Glucose [Mass/Vol] 193 mg/dL High 74-99 [facility] Comment on above: Performed By: #### 2 341-6 ####DERRICK Hall ([id number])[facility] ([facility])[address] [place] [address] Glucose [Mass/Vol] 188 mg/dL High 74 - 99 mg/dL [facility] Interpretation and review of laboratory results Abnormal [facility] Glucose [Mass/Vol] 188 mg/dL High 74-99 [facility] Comment on above: Performed By: #### 2 341-6 ####DERRICK Hall ([id number])[facility] ([facility])[address] [place] [address] Glucose [Mass/Vol] 208 mg/dL High 74 - 99 mg/dL [facility] Interpretation and review of laboratory results Abnormal [facility] Glucose [Mass/Vol] 208 mg/dL High 74-99 [facility] Comment on above: Performed By: #### 2 341-6 ####DERRICK Hall ([id number])[facility] ([facility])[address] [place] [address] Glucose [Mass/Vol] 211 mg/dL High 74 - 99 mg/dL [facility] Interpretation and review of laboratory results Abnormal [facility] Glucose [Mass/Vol] 211 mg/dL High 74-99 [facility] Comment on above: Performed By: #### 2 341-6 ####DERRICK Hall ([id number])[facility] ([facility])[address] [place] [address] Glucose [Mass/Vol] 171 mg/dL High 74 - 99 mg/dL [facility] Interpretation and review of laboratory results Abnormal [facility] Glucose [Mass/Vol] 171 mg/dL High 74-99 [facility] Comment on above: Performed By: #### 2 341-6 ####DERRICK Hall ([id number])[facility] ([facility])[address] [place] [address] Glucose [Mass/Vol] 174 mg/dL High 74 - 99 mg/dL [facility] Interpretation and review of laboratory results Abnormal [facility] Glucose [Mass/Vol] 174 mg/dL High 74-99 [facility] Comment on above: Performed By: #### 2 341-6 ####DERRICK Hlal ([id number])[facility] ([facility])[address] [place] [address] Glucose [Mass/Vol] 210 mg/dL High 74 - 99 mg/dL [facility] Interpretation and review of laboratory results Abnormal [facility] Glucose [Mass/Vol] 210 mg/dL High 74-99 [facility] Comment on above: Performed By: #### 2 341-6 ####DERRICK Hall ([id number])[facility] ([facility])[address] [place] [address] Guidance for thoracentesis o f Cheston 04-01-2025 U[facility] MMODAL UH MMODAL [facility] Work Phone: [facility] Work Phone: Magnesiumon 04-01-2025 Magnesium [Mass/Vol] 1.98 mg/dL 1.60 - 2.40 mg/dL [facility] Magnesium [Mass/Vol] 1.98 mg/dL Normal 1.60-2.40 [facility] Comment on above: Performed By: #### 1 9123-9 ####DERRICK Hall ([id number])[facility] ([facility])[address] [place], [place] [address] Magnesium [Mass/Vol]on 04-01 Interpretation and review of laboratory results Normal [facility] NM Whole body Bone Viewson 0 04-01-2025 Radiology Study observation (narrative) [facility] Work Phone: No Panel Informationon 04-01 [facility] Pathologist review Darío (Unsp spec) [Interp]Ordered By: Lois Zambrano on 04-01-2025 Pathologist Review-Cell Count, Fluid Predominance of chronic inflammatory cells in a hemorrhagic background. No malignant cells identified. No organism identified. Cells identified as unclassified are reactive mesothelial cells. [facility] Work Phone: [facility] Work Phone: Rad Onc Msq Treatment Summar yon 04-01-2025 Actual Fractions Delivered 1 [facility] Actual Session Delivered Dose 800 cGray [facility] Actual Total Dose 800 cGray [facility] Course Number 1 [facility] Elapsed Days 0 [facility] Last Date 04/01/2025 [facility] Prescribed Fractional Dose 800 cGray [facility] Prescribed Number of Fractions 1 [facility] Prescribed Technique AP/PA [facility] Prescribed Total Dose 800 cGray [facility] Prescription Pattern Comment CBCT daily. Match on Melvin/Tspine [facility] Start Date 04/01/2025 [facility] Treatment Site Rtlung [facility] Renal function 2000 panelon 04-01-2025 Albumin BCP dye [Mass/Vol] 3.1 g/dL Low 3.4 - 5.0 g/dL [facility] Anion gap [Moles/Vol] 13 mmol/L 10 - 2 0 mmol/L [facility] Calcium [Mass/Vol] 9.5 mg/dL 8.6 - 10. 6 mg/dL [facility] Chloride [Moles/Vol] 99 mmol/L 98 - 10 7 mmol/L [facility] CO2 [Moles/Vol] 27 mmol/L 21 - 32 mmol/L [facility] Creatinine [Mass/Vol] 0.55 mg/dL 0.50 - 1.05 mg/dL [facility] eGFR - PINF [facility] Glucose [Mass/Vol] 169 mg/dL High 74 - 99 mg/dL [facility] Interpretation and review of laboratory results Abnormal [facility] Phosphate [Mass/Vol] 2.7 mg/dL 2.5 - 4 .9 mg/dL [facility] Potassium [Moles/Vol] 4.3 mmol/L 3.5 - 5.3 mmol/L [facility] Sodium [Moles/Vol] 135 mmol/L Low 136 - 145 mmol/L [facility] Urea nitrogen [Mass/Vol] 9 mg/dL 6 - 23 mg/dL [facility] Albumin BCP dye [Mass/Vol] 3.1 g/dL Low 3.4-5.0 [facility] Comment on above: Performed By: #### 2 4362-6 ####DERRICK Hall ([id number])[facility] ([facility])[address] [place] [address] Anion gap [Moles/Vol] 13 mmol/L Normal 10-20 [facility] Comment on above: Performed By: #### 2 4362-6 ####DERRICK Hall ([id number])[facility] ([facility])[address] [place] [address] Calcium [Mass/Vol] 9.5 mg/dL Normal 8.6-10.6 [facility] Comment on above: Performed By: #### 2 4362-6 ####DERRICK Hall ([id number])[facility] ([facility])[address] [place] [address] Chloride [Moles/Vol] 99 mmol/L Normal 98-107 [facility] Comment on above: Performed By: #### 2 4362-6 ####DERRICK ALVESTZER L ([id number])[facility] ([facility])[address] [place] [address] CO2 [Moles/Vol] 27 mmol/L Normal 21-[address] [facility] Comment on above: Performed By: #### 2 4362-6 ####DERRICK Hall ([id number])[facility] ([facility])[address] [place] [address] Creatinine [Mass/Vol] 0.55 mg/dL Normal 0.50-1.05 [facility] Comment on above: Performed By: #### 2 4362-6 ####DERRICK BRAR L ([id number])[facility] ([facility])[address] [place] [address] Glomerular filtration rate >90 Normal >60 [facility] Comment on above: Result Comment: Calc ulations of estimated GFR are performed using the 2020 CKD-EPI Study Refit equation without the race variable for the IDMS-Traceable creatinine methods.https://jasn.asnjournals.org/content/early/ N.0583652024 Performed By: #### 2 4362-6 ####DERRICK ALVESTZCARIDAD L ([id number])[facility] ([facility])[address] [place] [address] Glucose [Mass/Vol] 169 mg/dL High 74-99 [facility] Comment on above: Performed By: #### 2 4362-6 ####DERRICK CHOUDHARYMOTZCARIDAD L ([id number])[facility] ([facility])[address] [place] [address] Phosphate [Mass/Vol] 2.7 mg/dL Normal 2.5-4.9 [facility] Comment on above: Performed By: #### 2 4362-6 ####EDRRICK Hall ([id number])[facility] ([facility])[address] [place] [address] Potassium [Moles/Vol] 4.3 mmol/L Normal 3.5-5.3 [facility] Comment on above: Performed By: #### 2 4362-6 ####DERRICK Hall ([id number])[facility] ([facility])[address] [place] [address] Sodium [Moles/Vol] 135 mmol/L Low 136-145 [facility] Comment on above: Performed By: #### 2 4362-6 ####DERRICK Hall ([id number])[facility] ([facility])[address] [place] [address] Urea nitrogen [Mass/Vol] 9 mg/dL Normal 6-23 [facility] Comment on above: Performed By: #### 2 4362-6 ####DERRICK Hall ([id number])[facility] ([facility])[address] [place] [address] Albumin BCP dye [Mass/Vol] 3.0 g/dL Low 3.4 - 5.0 g/dL [facility] Anion gap [Moles/Vol] 12 mmol/L 10 - 2 0 mmol/L [facility] Calcium [Mass/Vol] 9.0 mg/dL 8.6 - 10. 6 mg/dL [facility] Chloride [Moles/Vol] 101 mmol/L 98 - 10 7 mmol/L [facility] CO2 [Moles/Vol] 28 mmol/L 21 - 32 mmol/L [facility] Creatinine [Mass/Vol] 0.49 mg/dL Low 0.50 - 1.05 mg/dL [facility] eGFR - PINF [facility] Glucose [Mass/Vol] 156 mg/dL High 74 - 99 mg/dL [facility] Interpretation and review of laboratory results Abnormal [facility] Phosphate [Mass/Vol] 2.9 mg/dL 2.5 - 4 .9 mg/dL [facility] Potassium [Moles/Vol] 4.4 mmol/L 3.5 - 5.3 mmol/L [facility] Sodium [Moles/Vol] 137 mmol/L 136 - 145 mmol/L [facility] Urea nitrogen [Mass/Vol] 9 mg/dL 6 - 23 mg/dL [facility] Albumin BCP dye [Mass/Vol] 3.0 g/dL Low 3.4-5.0 [facility] Comment on above: Performed By: #### 2 4362-6 ####DERRICK Hall ([id number])[facility] ([facility])[address] [place] [address] Anion gap [Moles/Vol] 12 mmol/L Normal 10-20 [facility] Comment on above: Performed By: #### 2 4362-6 ####DERRICK Hall ([id number])[facility] ([facility])[address] [place] [address] Calcium [Mass/Vol] 9.0 mg/dL Normal 8.6-10.6 [facility] Comment on above: Performed By: #### 2 4362-6 ####EDRRICK Hall ([id number])[facility] ([facility])[address] [place] [address] Chloride [Moles/Vol] 101 mmol/L Normal 98-107 [facility] Comment on above: Performed By: #### 2 4362-6 ####DERRICK BRAR L ([id number])[facility] ([facility])[address] [place] [address] CO2 [Moles/Vol] 28 mmol/L Normal 21-[address] [facility] Comment on above: Performed By: #### 2 4362-6 ####DERRICK Hall ([id number])[facility] ([facility])[address] [place] [address] Creatinine [Mass/Vol] 0.49 mg/dL Low 0.50-1.05 [facility] Comment on above: Performed By: #### 2 4362-6 ####DERRICK Hall ([id number])[facility] ([facility])[address] [place] [address] Glomerular filtration rate >90 Normal >60 [facility] Comment on above: Result Comment: Calc ulations of estimated GFR are performed using the 2020 CKD-EPI Study Refit equation without the race variable for the IDMS-Traceable creatinine methods.https://jasn.asnjournals.org/content/early// N.3210714794 Performed By: #### 2 4362-6 ####DERRICK Hall ([id number])[facility] ([facility])[address] [place] [address] Glucose [Mass/Vol] 156 mg/dL High 74-99 [facility] Comment on above: Performed By: #### 2 4362-6 ####DERRICK BRAR L ([id number])[facility] ([facility])[address] [place] [address] Phosphate [Mass/Vol] 2.9 mg/dL Normal 2.5-4.9 [facility] Comment on above: Performed By: #### 2 4362-6 ####DERRICK BRAR L (85206)[facility] ([facility])[address] [place] [address] Potassium [Moles/Vol] 4.4 mmol/L Normal 3.5-5.3 [facility] Comment on above: Performed By: #### 2 4362-6 ####DERRICK BRAR L ([id number])[facility] ([facility])[address] [place] [address] Sodium [Moles/Vol] 137 mmol/L Normal 136-145 [facility] Comment on above: Performed By: #### 2 4362-6 ####DERRICK BRAR L ([id number])[facility] ([facility])[address] [place] [address] Urea nitrogen [Mass/Vol] 9 mg/dL Normal 03-01 [facility] Comment on above: Performed By: #### 2 4362-6 ####DERRICK Hall ([id number])[facility] ([facility])[address] [place], [place] [id number] UHTL HOLDOrdered By: Anastasiya ann on 04-01-2025 [facility] XR Chest Single viewon 04-01 UH MMODAL UH MMODAL [facility] Work Phone: [facility] Work Phone: Bacteriaon 03-31-2025 Bacteria identified Cx Nom (Body fld) Normal [facility] Comment on above: Performed By: #### 6 11-4 ####DERRICK Hall ([id number])[facility] ([facility])[address] [place] [address] CBC W Auto Differential pane l (Bld)on 03-31-2025 Basophils (Bld) [#/Vol] 0.05 10*3/uL [facility] Basophils/100 WBC (Bld) 0.5 % 0.0 - 2.0 % [facility] Eosinophils (Bld) [#/Vol] 0.28 10*3/uL [facility] Eosinophils/100 WBC (Bld) 2.7 % 0.0 - 6.0 % [facility] Erythrocyte distribution width (RBC) [Ratio] 12.5 % 11.5 - 14.5 % [facility] Hematocrit (Bld) [Volume fraction] 42.3 % 36.0 - 46.0 % [facility] Hemoglobin (Bld) [Mass/Vol] 12.9 g/dL 12.0 - 16.0 g/dL [facility] Immature granulocytes (Bld) [#/Vol] 0.07 10*3/uL [facility] Immature granulocytes/100 WBC (Bld) 0.7 % 0.0 - 0.9 % [facility] Interpretation and review of laboratory results Abnormal [facility] Lymphocytes (Bld) [#/Vol] 1.23 10*3/uL [facility] Lymphocytes/100 WBC (Bld) 11.9 % 13.0 - 44.0 % [facility] MCH (RBC) [Entitic mass] 30.0 pg 26.0 - 34.0 pg [facility] MCHC (RBC) [Mass/Vol] 30.5 g/dL Low 32.0 - 36.0 g/dL [facility] MCV (RBC) [Entitic vol] 98 fL 80 - 100 fL [facility] Monocytes (Bld) [#/Vol] 0.70 10*3/uL [facility] Monocytes/100 WBC (Bld) 6.8 % 2.0 - 10.0 % [facility] Neutrophils (Bld) [#/Vol] 8.00 10*3/uL High [facility] Neutrophils/100 WBC (Bld) 77.4 % 40.0 - 80.0 % [facility] Nucleated RBC/100 WBC (Bld) [Ratio] 0.0 % [facility] Platelets (Bld) [#/Vol] 185 10*3/uL [facility] RBC (Bld) [#/Vol] 4.30 10*6/uL [facility] WBC (Bld) [#/Vol] 10.3 10*3/uL [facility] Basophils (Bld) [#/Vol] 0.05 x10*3/uL Normal 0.00-0.10 [facility] Comment on above: Performed By: #### 5 7021-8 ####DERRICK Hall ([id number])[facility] ([facility])[address] [place] [address] Basophils/100 WBC (Bld) 0.5 % Normal 0.0-2.0 [facility] Comment on above: Performed By: #### 5 7021-8 ####DERRICK Hall ([id number])[facility] ([facility])[id number] [place] [address] Eosinophils (Bld) [#/Vol] 0.28 x10*3/uL Normal 0.00-0.70 [facility] Comment on above: Performed By: #### 5 7021-8 ####DERRICK Hall ([id number])[facility] ([facility])[address] [place] [address] Eosinophils/100 WBC (Bld) 2.7 % Normal 0.0-6.0 [facility] Comment on above: Performed By: #### 5 7021-8 ####DERRICK Hall ([id number])[facility] ([facility])[address] [place] [address] 37576 Erythrocyte distribution width (RBC) [Ratio] 12.5 % Normal 11.5-14.5 [facility] Comment on above: Performed By: #### 5 7021-8 ####DERRICK Hall ([id number])[facility] ([facility])[address] [place] [address] 37789 Hematocrit (Bld) [Volume fraction] 42.3 % Normal 36.0-46.0 [facility] Comment on above: Performed By: #### 5 7021-8 ####DERRICK Hall ([id number])[facility] ([facility])[address] [place] [address] 76992 Hemoglobin (Bld) [Mass/Vol] 12.9 g/dL Normal 12.0-16.0 [facility] Comment on above: Performed By: #### 5 7021-8 ####DERRICK Hall ([id number])[facility] ([facility])[address] [place] [address] 33280 Immature granulocytes (Bld) [#/Vol] 0.07 x10*3/uL Normal 0.00-0.70 [facility] Comment on above: Performed By: #### 5 7021-8 ####DERRICK Hall ([id number])[facility] ([facility])[address] [place] [address] 46653 Immature granulocytes/100 WBC (Bld) 0.7 % Normal 0.0-0.9 [facility] Comment on above: Result Comment: Arlen ture Granulocyte Count (IG) includes promyelocytes, myelocytes and metamyelocytes but does not include bands. Percent differential counts (%) should be interpreted in the context of the absolute cell counts (cells/UL). Performed By: #### 5 7021-8 ####DERRICK Hall ([id number])[facility] ([facility])[address] [place] [address] Lymphocytes (Bld) [#/Vol] 1.23 x10*3/uL Normal 1.20-4.80 [facility] Comment on above: Performed By: #### 5 7021-8 ####DERRICK Hall ([id number])[facility] ([facility])[address] [place] [address] Lymphocytes/100 WBC (Bld) 11.9 % Normal 13.0-44.0 [facility] Comment on above: Performed By: #### 5 7021-8 ####DERRICK Hall ([id number])[facility] ([facility])[address] [place] [address] MCH (RBC) [Entitic mass] 30.0 pg Normal 26.0-34.0 [facility] Comment on above: Performed By: #### 5 7021-8 ####DERRICK Hall ([id number])[facility] ([facility])[address] [place] [address] MCHC (RBC) [Mass/Vol] 30.5 g/dL Low 32.0-36.0 [facility] Comment on above: Performed By: #### 5 7021-8 ####DERRICK Hall ([id number])[facility] ([facility])[address] [place] [address] MCV (RBC) [Entitic vol] 98 fL Normal 80-100 [facility] Comment on above: Performed By: #### 5 7021-8 ####DERRICK Hall ([id number])[facility] ([facility])[address] [place] [address] Monocytes (Bld) [#/Vol] 0.70 x10*3/uL Normal 0.10-1.00 [facility] Comment on above: Performed By: #### 5 7021-8 ####DERRICK Hall ([id number])[facility] ([facility])[address] [place] [address] Monocytes/100 WBC (Bld) 6.8 % Normal 2.0-10.0 [facility] Comment on above: Performed By: #### 5 7021-8 ####DERRICK Hall ([id number])[facility] ([facility])[address] [place] [address] Neutrophils (Bld) [#/Vol] 8.00 x10*3/uL High 1.20-7.70 [facility] Comment on above: Result Comment: Perc ent differential counts (%) should be interpreted in the context of the absolute cell counts (cells/uL). Performed By: #### 5 7021-8 ####DERRICK BRAR L ([id number])[facility] ([facility])[address] [place] [address] Neutrophils/100 WBC (Bld) 77.4 % Normal 40.0-80.0 [facility] Comment on above: Performed By: #### 5 7021-8 ####DERRICK Hall ([id number])[facility] ([facility])[address] [place] [address] Nucleated RBC/100 WBC (Bld) [Ratio] 0.0 /100 WBCs Normal 0.0-0.0 [facility] Comment on above: Performed By: #### 5 7021-8 ####DERRICK CHOUDHARYMOGAY L ([id number])[facility] ([facility])[address] [place] [address] Platelets (Bld) [#/Vol] 185 x10*3/uL Normal 150-450 [facility] Comment on above: Performed By: #### 5 7021-8 ####DERRICK BRAR L ([id number])[facility] ([facility])[address] [place] [address] RBC (Bld) [#/Vol] 4.30 x10*6/uL Normal 4.00-5.20 [facility] Comment on above: Performed By: #### 5 7021-8 ####DERRICK Hall ([id number])[facility] ([facility])[address] [place] [address] WBC (Bld) [#/Vol] 10.3 x10*3/uL Normal 4.4-11.3 [facility] Comment on above: Performed By: #### 5 7021-8 ####DERRICK Hall ([id number])[facility] ([facility])[address] [place] [address] Cell count panel (Body fld)o n 03-31-2025 Clarity (Body fld) Turbid Abnormal Clear [facility] Color (Body fld) Yellow Colorless, Straw, Yellow [facility] RBC Auto (Body fld) [#/Vol] 2000 /uL see comment [facility] WBC (Body fld) [#/Vol] 0.264 10*3/uL See Comment [facility] Clarity (Body fld) Turbid Abnormal Clear [facility] Comment on above: Order Comment: Body Fluid cell count reference ranges have not been established by [facility]. Reference ranges provided are based on published references. Performed By: #### 3 4556-1 ####DERRICK Hall ([id number])[facility] ([facility])[address] [place] [address] Color (Body fld) Yellow Normal Colorless, Straw, Yellow [facility] Comment on above: Order Comment: Body Fluid cell count reference ranges have not been established by [facility]. Reference ranges provided are based on published references. Performed By: #### 3 4556-1 ####DERRICK Hall ([id number])[facility] ([facility])[address] [place] [address] RBC Auto (Body fld) [#/Vol] 2000 /uL Normal see comment [facility] Comment on above: Order Comment: Body Fluid cell count reference ranges have not been established by [facility]. Reference ranges provided are based on published references. Result Comment: BAL/ Synovial/Peritoneal/Pericardial/Pleural Fluid Reference Range: 0 cells/uL Performed By: #### 3 4556-1 ####DERRICK Hall ([id number])[facility] ([facility])[address] [place] [address] WBC (Body fld) [#/Vol] 0.264 10*3/uL Normal See Comment [facility] Comment on above: Order Comment: Body Fluid cell count reference ranges have not been established by [facility]. Reference ranges provided are based on published references. Result Comment: BAL/ Synovial/Peritoneal/Pericardial/Pleural Fluid Reference Range: <500 cells/uL Performed By: #### 3 4556-1 ####DERRICK Hall ([id number])[facility] ([facility])[address] [place] [address] Differential panel (Body fld )on 03-31-2025 Cells Counted Total (Body fld) [#] 100 [facility] Eosinophils/100 WBC Manual cnt (Body fld) [facility] Lymphocytes/100 WBC Manual cnt (Body fld) 68 % see comment [facility] Monocytes+Macrophages /100 WBC Manual cnt (Body fld) 21 % see comment [facility] Neutrophils/100 WBC (Body fld) 6 % see comment [facility] Other cells/100 WBC Manual cnt (Body fld) 5 % High - 0 % [facility] Cells Counted Total (Body fld) [#] 100 Normal [facility] Comment on above: Order Comment: Body Fluid cell differential reference ranges have not been established by [facility]. Reference ranges provided are based on published references. Performed By: #### 2 9580-8 ####DERRICK Hall ([id number])[facility] ([facility])[address] [place] [address] Eosinophils/100 WBC Manual cnt (Body fld) Normal [facility] Comment on above: Order Comment: Body Fluid cell differential reference ranges have not been established by [facility]. Reference ranges provided are based on published references. Result Comment: BAL Reference Range: <1% Performed By: #### 2 9580-8 ####DERRICK ALVESTZER L ([id number])[facility] ([facility])[address] [place] [address] Lymphocytes/100 WBC Manual cnt (Body fld) 68 % Normal see comment [facility] Comment on above: Order Comment: Body Fluid cell differential reference ranges have not been established by [facility]. Reference ranges provided are based on published references. Result Comment: Syno vial/Peritoneal/Pericardial/Pleural Fluid Reference Range: <75%BAL Reference Range: <10% Performed By: #### 2 9580-8 ####DERRICK SCHMOTZER L ([id number])[facility] ([facility])[address] [place] [address] Monocytes+Macrophages /100 WBC Manual cnt (Body fld) 21 % Normal see comment [facility] Comment on above: Order Comment: Body Fluid cell differential reference ranges have not been established by [facility]. Reference ranges provided are based on published references. Result Comment: Syno vial/Peritoneal/Pericardial/Pleural Fluid Reference Range: <70%BAL Reference Range: 87-100% Performed By: #### 2 9580-8 ####DERRICK CHOUDHARYMOTZER L ([id number])[facility] ([facility])[address] [place] [address] Neutrophils/100 WBC (Body fld) 6 % Normal see comment [facility] Comment on above: Order Comment: Body Fluid cell differential reference ranges have not been established by [facility]. Reference ranges provided are based on published references. Result Comment: Syno vial/Peritoneal/Pericardial/Pleural Fluid Reference Range: <25%BAL Reference Range: <2% Performed By: #### 2 9580-8 ####DERRICK SCHMOTZER L ([id number])[facility] ([facility])[address] [place] [address] Other cells/100 WBC Manual cnt (Body fld) 5 % High not established [facility] Comment on above: Order Comment: Body Fluid cell differential reference ranges have not been established by [facility]. Reference ranges provided are based on published references. Performed By: #### 2 9580-8 ####DERRICK SCHMOTZER L ([id number])[facility] ([facility])[address] [place] [address] Glucoseon 03-31-2025 Glucose (Body fld) [Mass/Vol] 204 mg/dL Normal Not established [facility] Comment on above: Order Comment: The p erformance characteristics of this test have been validated on peritoneal/ascites, pleural, pericardial, drain, dialysate and liver/pancreatic cyst fluid by the [facility]. This test has not been approved by the FDA; however, such approval is not necessary. Performed By: #### 2 344-0 ####DERRICK Hall ([id number])[facility] ([facility])[address] [place] [address] Glucose Test strip manual (B ld) [Mass/Vol]on 03-31-2025 Glucose [Mass/Vol] 209 mg/dL High 74 - 99 mg/dL [facility] Interpretation and review of laboratory results Abnormal [facility] Glucose [Mass/Vol] 209 mg/dL High 74-99 [facility] Comment on above: Performed By: #### 2 341-6 ####DERRICK Hall ([id number])[facility] ([facility])[address] [place] [address] Glucose [Mass/Vol] 171 mg/dL High 74 - 99 mg/dL [facility] Interpretation and review of laboratory results Abnormal [facility] Glucose [Mass/Vol] 171 mg/dL High 74-99 [facility] Comment on above: Performed By: #### 2 341-6 ####DERRICK Hall ([id number])[facility] ([facility])[address] [place] [address] Glucose [Mass/Vol] 195 mg/dL High 74 - 99 mg/dL [facility] Interpretation and review of laboratory results Abnormal [facility] Glucose [Mass/Vol] 195 mg/dL High 74-99 [facility] Comment on above: Performed By: #### 2 341-6 ####DERRICK Hall ([id number])[facility] ([facility])[address] [place] [address] Glucose [Mass/Vol] 148 mg/dL High 74 - 99 mg/dL [facility] Interpretation and review of laboratory results Abnormal [facility] Glucose [Mass/Vol] 148 mg/dL High 74-99 [facility] Comment on above: Performed By: #### 2 341-6 ####DERRICK Hall ([id number])[facility] ([facility])[address] [place] [address] Glucose [Mass/Vol] 152 mg/dL High 74 - 99 mg/dL [facility] Interpretation and review of laboratory results Abnormal [facility] Glucose [Mass/Vol] 152 mg/dL High 74-99 [facility] Comment on above: Performed By: #### 2 341-6 ####DERRICK Hall ([id number])[facility] ([facility])[address] [place] [address] Glucose [Mass/Vol] 188 mg/dL High 74 - 99 mg/dL [facility] Interpretation and review of laboratory results Abnormal [facility] Glucose [Mass/Vol] 188 mg/dL High 74-99 [facility] Comment on above: Performed By: #### 2 341-6 ####DERRICK Hall ([id number])[facility] ([facility])[address] [place] [address] Glucose, Body Fluidon 2024 Glucose (Body fld) [Mass/Vol] 204 mg/dL Not established [facility] Guidance for thoracentesis o f Cheston 03-31-2025 Radiology Study observation (narrative) [facility] Work Phone: Lactate Dehydrogenaseon 03-10 LDH Lactate to pyruvate reaction [Catalytic activity/Vol] 198 U/L 84 - 246 U/L [facility] Lactate Dehydrogenase, Body Fluidon 03-31-2025 LDH Lactate to pyruvate reaction (Body fld) [Catalytic activity/Vol] 193 U/L Not established. [facility] Lactate dehydrogenaseon 03-10 LDH Lactate to pyruvate reaction (Body fld) [Catalytic activity/Vol] 193 U/L Normal Not established. [facility] Comment on above: Order Comment: The p erformance characteristics of this test have been validated on peritoneal/ascites,pleural, pericardial and drain fluid by the performing [facility] laboratory. This test has not been approved by the FDA; however, such approval is not necessary. Performed By: #### 1 4803-1 ####DERRICK Hall ([id number])[facility] ([facility])[address] [place] [address] LDH Lactate to pyruvate reaction [Catalytic activity/Vol] 198 U/L Normal 84-246 [facility] Comment on above: Performed By: #### 1 4804-9 ####DERRICK Hall ([id number])[facility] ([facility])[address] [place] [address] Magnesiumon 03-31-2025 Magnesium [Mass/Vol] 1.99 mg/dL 1.60 - 2.40 mg/dL [facility] Magnesium [Mass/Vol] 1.99 mg/dL Normal 1.60-2.40 [facility] Comment on above: Performed By: #### 1 9123-9 ####DERRICK Hall ([id number])[facility] ([facility])[address] [place] [address] WHOLE BODYon 03-[address] WHOLE BODY Normal [facility] No Panel Informationon 03-31 Interpretation and review of laboratory results Abnormal [facility] Interpretation and review of laboratory results Normal [facility] Interpretation and review of laboratory results Abnormal [facility] Non-replenishment associate cytology studyon Non-gynecological cytology method study Normal [facility] Pathologist review Darío (Unsp spec) [Interp]on 03-31-2025 PATH REVIEW-CELL CT,FLUID Predominance of chronic inflammatory cells in a hemorrhagic background. No malignant cells identified. No organism identified. Cells identified as unclassified are reactive mesothelial cells. Normal [facility] Comment on above: Result Comment: Elec tronically signed out by Lois Zambrano MD on 04/01/25 at 2:03 PM.By the signature on this report, the individual or group listed as making the Final Interpretation/Diagnosis certifies that they have reviewed this case. Performed By: #### 5 9465-5 ####DERRICK Hall ([id number])[facility] ([facility])[address] [place] [address] Proteinon 03-31-2025 Protein (Body fld) [Mass/Vol] 2.4 g/dL Normal Not established [facility] Comment on above: Order Comment: The p erformance characteristics of this test have been validated on peritoneal/ascites,pleural, pericardial, drain, and liver/pancreatic cyst fluid by the [facility] laboratory. This test has not been approved by the FDA; however, such approval is not necessary. Performed By: #### 2 881-1 ####DERRICK Hall ([id number])[facility] ([facility])[address] [place] [address] Protein [Mass/Vol] 5.5 g/dL Low 6.4-8.2 [facility] Comment on above: Performed By: #### 2 885-2 ####DERRICK Hall ([id number])[facility] ([facility])[address] [place] [address] Protein, Totalon 03-31-2025 Protein [Mass/Vol] 5.5 g/dL Low 6.4 - 8.2 g/dL [facility] Protein, Total, Body Fluidon 03-31-2025 Protein (Body fld) [Mass/Vol] 2.4 g/dL Not established [facility] Renal function 2000 panelon 03-31-2025 Albumin BCP dye [Mass/Vol] 3.0 g/dL Low 3.4 - 5.0 g/dL [facility] Anion gap [Moles/Vol] 12 mmol/L 10 - 2 0 mmol/L [facility] Calcium [Mass/Vol] 9.2 mg/dL 8.6 - 10. 6 mg/dL [facility] Chloride [Moles/Vol] 99 mmol/L 98 - 10 7 mmol/L [facility] CO2 [Moles/Vol] 30 mmol/L 21 - 32 mmol/L [facility] Creatinine [Mass/Vol] 0.54 mg/dL 0.50 - 1.05 mg/dL [facility] eGFR - PINF [facility] Glucose [Mass/Vol] 194 mg/dL High 74 - 99 mg/dL [facility] Interpretation and review of laboratory results Abnormal [facility] Phosphate [Mass/Vol] 2.5 mg/dL 2.5 - 4 .9 mg/dL [facility] Potassium [Moles/Vol] 4.1 mmol/L 3.5 - 5.3 mmol/L [facility] Sodium [Moles/Vol] 137 mmol/L 136 - 145 mmol/L [facility] Urea nitrogen [Mass/Vol] 10 mg/dL 6 - 23 mg/dL [facility] Albumin BCP dye [Mass/Vol] 3.0 g/dL Low 3.4-5.0 [facility] Comment on above: Performed By: #### 2 4362-6 ####DERRICK Hall ([id number])[facility] ([facility])[address] [place] [address] Anion gap [Moles/Vol] 12 mmol/L Normal 10-20 [facility] Comment on above: Performed By: #### 2 4362-6 ####DERRICK Hall ([id number])[facility] ([facility])[address] [place] [address] Calcium [Mass/Vol] 9.2 mg/dL Normal 8.6-10.6 [facility] Comment on above: Performed By: #### 2 4362-6 ####DERRICK Hall ([id number])[facility] ([facility])[address] [place] [address] Chloride [Moles/Vol] 99 mmol/L Normal 98-107 [facility] Comment on above: Performed By: #### 2 4362-6 ####DERRICK Hall ([id number])[facility] ([facility])[address] [place] [address] CO2 [Moles/Vol] 30 mmol/L Normal 21-[address] [facility] Comment on above: Performed By: #### 2 4362-6 ####DERRICK BRAR L ([id number])[facility] ([facility])[address] [place] [address] Creatinine [Mass/Vol] 0.54 mg/dL Normal 0.50-1.05 [facility] Comment on above: Performed By: #### 2 4362-6 ####DERRICK BRAR L ([id number])[facility] ([facility])[address] [place] [address] Glomerular filtration rate >90 Normal >60 [facility] Comment on above: Result Comment: Calc ulations of estimated GFR are performed using the 2020 CKD-EPI Study Refit equation without the race variable for the IDMS-Traceable creatinine methods.https://jasn.asnjournals.org/content/early// N.4996240951 Performed By: #### 2 4362-6 ####DERRICK BRAR L ([id number])[facility] ([facility])[address] [place] [address] Glucose [Mass/Vol] 194 mg/dL High 74-99 [facility] Comment on above: Performed By: #### 2 4362-6 ####DERRICK BRAR L ([id number])[facility] ([facility])[address] [place] [address] Phosphate [Mass/Vol] 2.5 mg/dL Normal 2.5-4.9 [facility] Comment on above: Performed By: #### 2 4362-6 ####DERRICK BRAR L ([id number])[facility] ([facility])[address] [place] [address] Potassium [Moles/Vol] 4.1 mmol/L Normal 3.5-5.3 [facility] Comment on above: Performed By: #### 2 4362-6 ####DERRICK Hall ([id number])[facility] ([facility])[address] [place] [address] Sodium [Moles/Vol] 137 mmol/L Normal 136-145 [facility] Comment on above: Performed By: #### 2 4362-6 ####DERRICK Hall ([id number])[facility] ([facility])[address] [place] [address] Urea nitrogen [Mass/Vol] 10 mg/dL Normal 6-23 [facility] Comment on above: Performed By: #### 2 4362-6 ####DERRICK Hall ([id number])[facility] ([facility])[address] [place] [address] Albumin BCP dye [Mass/Vol] 2.9 g/dL Low 3.4 - 5.0 g/dL [facility] Anion gap [Moles/Vol] 12 mmol/L 10 - 2 0 mmol/L [facility] Calcium [Mass/Vol] 9.1 mg/dL 8.6 - 10. 6 mg/dL [facility] Chloride [Moles/Vol] 102 mmol/L 98 - 10 7 mmol/L [facility] CO2 [Moles/Vol] 29 mmol/L 21 - 32 mmol/L [facility] Creatinine [Mass/Vol] 0.41 mg/dL Low 0.50 - 1.05 mg/dL [facility] eGFR - PINF [facility] Glucose [Mass/Vol] 156 mg/dL High 74 - 99 mg/dL [facility] Phosphate [Mass/Vol] 2.8 mg/dL 2.5 - 4 .9 mg/dL [facility] Potassium [Moles/Vol] 3.8 mmol/L 3.5 - 5.3 mmol/L [facility] Sodium [Moles/Vol] 139 mmol/L 136 - 145 mmol/L [facility] Urea nitrogen [Mass/Vol] 11 mg/dL 6 - 23 mg/dL [facility] Albumin BCP dye [Mass/Vol] 2.9 g/dL Low 3.4-5.0 [facility] Comment on above: Performed By: #### 2 4362-6 ####DERRICK Hall ([id number])[facility] ([facility] [facility] [place] [address] Anion gap [Moles/Vol] 12 mmol/L Normal 10-20 [facility] Comment on above: Performed By: #### 2 4362-6 ####DERRICK Hall ([id number])[facility] ([facility])[address] [place] [address] Calcium [Mass/Vol] 9.1 mg/dL Normal 8.6-10.6 [facility] Comment on above: Performed By: #### 2 4362-6 ####DERRICK Hall ([id number])[facility] ([facility])[address] [place] [address] Chloride [Moles/Vol] 102 mmol/L Normal 98-107 [facility] Comment on above: Performed By: #### 2 4362-6 ####DERRICK Hall ([id number])[facility] ([facility])[address] [place] [address] CO2 [Moles/Vol] 29 mmol/L Normal 21-[address] [facility] Comment on above: Performed By: #### 2 4362-6 ####DERRICK Hall ([id number])[facility] ([facility])[address] [place] [address] Creatinine [Mass/Vol] 0.41 mg/dL Low 0.50-1.05 [facility] Comment on above: Performed By: #### 2 4362-6 ####DERRICK Hall ([id number])[facility] ([facility])[address] [place] [address] Glomerular filtration rate >90 Normal >60 [facility] Comment on above: Result Comment: Calc ulations of estimated GFR are performed using the 2020 CKD-EPI Study Refit equation without the race variable for the IDMS-Traceable creatinine methods.https://jasn.asnjournals.org/content// N.1240106794 Performed By: #### 2 4362-6 ####DERRICK Hall ([id number])[facility] ([facility])[address] [place] [address] Glucose [Mass/Vol] 156 mg/dL High 74-99 [facility] Comment on above: Performed By: #### 2 4362-6 ####DERRICK Hall ([id number])[facility] ([facility])[address] [place] [address] Phosphate [Mass/Vol] 2.8 mg/dL Normal 2.5-4.9 [facility] Comment on above: Performed By: #### 2 4362-6 ####DERRICK Hall ([id number])[facility] ([facility])[address] [place] [address] Potassium [Moles/Vol] 3.8 mmol/L Normal 3.5-5.3 [facility] Comment on above: Performed By: #### 2 4362-6 ####DERRICK Hall ([id number])[facility] ([facility])[address] [place] [address] Sodium [Moles/Vol] 139 mmol/L Normal 136-145 [facility] Comment on above: Performed By: #### 2 4362-6 ####DERRICK BRAR L ([id number])[facility] ([facility])[address] [place] [address] Urea nitrogen [Mass/Vol] 11 mg/dL Normal 6-23 [facility] Comment on above: Performed By: #### 2 4362-6 ####DERRICK BRAR L ([id number])[facility] ([facility])[address] [place] [address] US THORACENTESISon 5 US THORACENTESIS Normal [facility] XR CHEST 1 VIEWon 03-31-2025 XR CHEST 1 VIEW Normal [facility] XR Chest Single viewon 03-31 Radiology Study observation (narrative) [facility] Work Phone: UH MMODAL UH MMODAL [facility] Work Phone: [facility] Work Phone: Radiology Study observation (narrative) [facility] Work Phone: pHon 03-31-2025 pH (Body fld) 7.44 Normal See Below [facility] Comment on above: Order Comment: Pleur al [...] Performed By: #### 2 748-2 ####DERRICK Hall ([id number])[facility] ([facility])[address] [place] [address] pH (Body fld)Ordered By: Ashia Figueroa on 03-31-2025 [facility] pH, Body FluidOrdered By: Tulio Figueroa on 03-31-2025 pH (Body fld) 7.44 [pH] See Below [facility] CBC W Auto Differential pane l (Bld)on 03-30-2025 Basophils (Bld) [#/Vol] 0.04 10*3/uL [facility] Basophils/100 WBC (Bld) 0.4 % 0.0 - 2.0 % [facility] Eosinophils (Bld) [#/Vol] 0.30 10*3/uL [facility] Eosinophils/100 WBC (Bld) 3.0 % 0.0 - 6.0 % [facility] Erythrocyte distribution width (RBC) [Ratio] 12.5 % 11.5 - 14.5 % [facility] Hematocrit (Bld) [Volume fraction] 40.0 % 36.0 - 46.0 % [facility] Hemoglobin (Bld) [Mass/Vol] 12.8 g/dL 12.0 - 16.0 g/dL [facility] Immature granulocytes (Bld) [#/Vol] 0.06 10*3/uL [facility] Immature granulocytes/100 WBC (Bld) 0.6 % 0.0 - 0.9 % [facility] Interpretation and review of laboratory results Abnormal [facility] Lymphocytes (Bld) [#/Vol] 1.19 10*3/uL Low [facility] Lymphocytes/100 WBC (Bld) 11.7 % 13.0 - 44.0 % [facility] MCH (RBC) [Entitic mass] 31.4 pg 26.0 - 34.0 pg [facility] MCHC (RBC) [Mass/Vol] 32.0 g/dL 32.0 - 36.0 g/dL [facility] MCV (RBC) [Entitic vol] 98 fL 80 - 100 fL [facility] Monocytes (Bld) [#/Vol] 0.80 10*3/uL [facility] Monocytes/100 WBC (Bld) 7.9 % 2.0 - 10.0 % [facility] Neutrophils (Bld) [#/Vol] 7.76 10*3/uL High [facility] Neutrophils/100 WBC (Bld) 76.4 % 40.0 - 80.0 % [facility] Nucleated RBC/100 WBC (Bld) [Ratio] 0.0 % [facility] Platelets (Bld) [#/Vol] 201 10*3/uL [facility] RBC (Bld) [#/Vol] 4.08 10*6/uL [facility] WBC (Bld) [#/Vol] 10.2 10*3/uL [facility] Basophils (Bld) [#/Vol] 0.04 x10*3/uL Normal 0.00-0.10 [facility] Comment on above: Performed By: #### 5 7021-8 ####DERRICK Hall ([id number])[facility] ([facility])[address] [place] [address] Basophils/100 WBC (Bld) 0.4 % Normal 0.0-2.0 [facility] Comment on above: Performed By: #### 5 7021-8 ####DERRICK Hall ([id number])[facility] ([facility])[address] [place] [address] Eosinophils (Bld) [#/Vol] 0.30 x10*3/uL Normal 0.00-0.70 [facility] Comment on above: Performed By: #### 5 7021-8 ####DERRICK Hall ([id number])[facility] ([facility])[address] [place] [address] Eosinophils/100 WBC (Bld) 3.0 % Normal 0.0-6.0 [facility] Comment on above: Performed By: #### 5 7021-8 ####DERRICK Hall ([id number])[facility] ([facility])[address] [place] [address] Erythrocyte distribution width (RBC) [Ratio] 12.5 % Normal 11.5-14.5 [facility] Comment on above: Performed By: #### 5 7021-8 ####DERRICK Hall ([id number])[facility] ([facility])[address] [place] [address] Hematocrit (Bld) [Volume fraction] 40.0 % Normal 36.0-46.0 [facility] Comment on above: Performed By: #### 5 7021-8 ####DERRICK Hall ([id number])[facility] ([facility])[address] [place] [address] Hemoglobin (Bld) [Mass/Vol] 12.8 g/dL Normal 12.0-16.0 [facility] Comment on above: Performed By: #### 5 7021-8 ####DERRICK Hall ([id number])[facility] ([facility])[address] [place] [address] Immature granulocytes (Bld) [#/Vol] 0.06 x10*3/uL Normal 0.00-0.70 [facility] Comment on above: Performed By: #### 5 7021-8 ####DERRICK Hall ([id number])[facility] ([facility])[address] [place] [address] Immature granulocytes/100 WBC (Bld) 0.6 % Normal 0.0-0.9 [facility] Comment on above: Result Comment: Arlen ture Granulocyte Count (IG) includes promyelocytes, myelocytes and metamyelocytes but does not include bands. Percent differential counts (%) should be interpreted in the context of the absolute cell counts (cells/UL). Performed By: #### 5 7021-8 ####DERRICK Hall ([id number])[facility] ([facility])[address] [place] [address] Lymphocytes (Bld) [#/Vol] 1.19 x10*3/uL Low 1.20-4.80 [facility] Comment on above: Performed By: #### 5 7021-8 ####DERRICK Hall ([id number])[facility] ([facility])[address] [place] [address] Lymphocytes/100 WBC (Bld) 11.7 % Normal 13.0-44.0 [facility] Comment on above: Performed By: #### 5 7021-8 ####DERRCIK Hall ([id number])[facility] ([facility])[address] [place] [address] MCH (RBC) [Entitic mass] 31.4 pg Normal 26.0-34.0 [facility] Comment on above: Performed By: #### 5 7021-8 ####DERRICK Hall ([id number])[facility] ([facility])[address] [place] [address] MCHC (RBC) [Mass/Vol] 32.0 g/dL Normal 32.0-36.0 [facility] Comment on above: Performed By: #### 5 7021-8 ####DERRICK Hall ([id number])[facility] ([facility])[address] [place] [address] MCV (RBC) [Entitic vol] 98 fL Normal 80-100 [facility] Comment on above: Performed By: #### 5 7021-8 ####DERRICK Hall ([id number])[facility] ([facility])[address] [place] [address] Monocytes (Bld) [#/Vol] 0.80 x10*3/uL Normal 0.10-1.00 [facility] Comment on above: Performed By: #### 5 7021-8 ####DERRICK Hall ([id number])[facility] ([facility])[address] [place] [address] Monocytes/100 WBC (Bld) 7.9 % Normal 2.0-10.0 [facility] Comment on above: Performed By: #### 5 7021-8 ####DERRICK Hall ([id number])[facility] ([facility])[address] [place] [address] Neutrophils (Bld) [#/Vol] 7.76 x10*3/uL High 1.20-7.70 [facility] Comment on above: Result Comment: Perc ent differential counts (%) should be interpreted in the context of the absolute cell counts (cells/uL). Performed By: #### 5 7021-8 ####DERRICK Hall ([id number])[facility] ([facility])[address] [place] [address] Neutrophils/100 WBC (Bld) 76.4 % Normal 40.0-80.0 [facility] Comment on above: Performed By: #### 5 7021-8 ####DERRICK Hall ([id number])[facility] ([facility])[address] [place] [address] Nucleated RBC/100 WBC (Bld) [Ratio] 0.0 /100 WBCs Normal 0.0-0.0 [facility] Comment on above: Performed By: #### 5 7021-8 ####DERRICK Hall ([id number])[facility] ([facility])[address] [place] [address] Platelets (Bld) [#/Vol] 201 x10*3/uL Normal 150-450 [facility] Comment on above: Performed By: #### 5 7021-8 ####DERRICK Hall ([id number])[facility] ([facility])[address] [place] [address] RBC (Bld) [#/Vol] 4.08 x10*6/uL Normal 4.00-5.20 [facility] Comment on above: Performed By: #### 5 7021-8 ####DERRICK Hall ([id number])[facility] ([facility])[address] [place] [address] WBC (Bld) [#/Vol] 10.2 x10*3/uL Normal 4.4-11.3 [facility] Comment on above: Performed By: #### 5 7021-8 ####DERRICK Hall ([id number])[facility] ([facility])[address] [place] [address] CBC panel Auto (Bld)on 03-30 Erythrocyte distribution width (RBC) [Ratio] 12.6 % 11.5 - 14.5 % [facility] Hematocrit (Bld) [Volume fraction] 41.9 % 36.0 - 46.0 % [facility] Hemoglobin (Bld) [Mass/Vol] 13.3 g/dL 12.0 - 16.0 g/dL [facility] Interpretation and review of laboratory results Abnormal [facility] MCH (RBC) [Entitic mass] 30.9 pg 26.0 - 34.0 pg [facility] MCHC (RBC) [Mass/Vol] 31.7 g/dL Low 32.0 - 36.0 g/dL [facility] MCV (RBC) [Entitic vol] 97 fL 80 - 100 fL [facility] Nucleated RBC/100 WBC (Bld) [Ratio] 0.0 % [facility] Platelets (Bld) [#/Vol] 222 10*3/uL [facility] RBC (Bld) [#/Vol] 4.30 10*6/uL [facility] WBC (Bld) [#/Vol] 10.8 10*3/uL [facility] Erythrocyte distribution width (RBC) [Ratio] 12.6 % Normal 11.5-14.5 [facility] Comment on above: Performed By: #### 5 8410-2 ####DERRICK Hall ([id number])[facility] ([facility])[address] [place] [address] Hematocrit (Bld) [Volume fraction] 41.9 % Normal 36.0-46.0 [facility] Comment on above: Performed By: #### 5 8410-2 ####DERRICK Hall ([id number])[facility] ([facility])[address] [place] [address] Hemoglobin (Bld) [Mass/Vol] 13.3 g/dL Normal 12.0-16.0 [facility] Comment on above: Performed By: #### 5 8410-2 ####DERRICK Hall ([id number])[facility] ([facility])[address] [place] [address] MCH (RBC) [Entitic mass] 30.9 pg Normal 26.0-34.0 [facility] Comment on above: Performed By: #### 5 8410-2 ####DERRICK Hall ([id number])[facility] ([facility])[address] [place] [address] MCHC (RBC) [Mass/Vol] 31.7 g/dL Low 32.0-36.0 [facility] Comment on above: Performed By: #### 5 8410-2 ####DERRICK Hall ([id number])[facility] ([facility])[address] [place] [address] MCV (RBC) [Entitic vol] 97 fL Normal 80-100 [facility] Comment on above: Performed By: #### 5 8410-2 ####DERRICK Hall (16822)[facility] ([facility])[address] [place] [address] Nucleated RBC/100 WBC (Bld) [Ratio] 0.0 /100 WBCs Normal 0.0-0.0 [facility] Comment on above: Performed By: #### 5 8410-2 ####DERRICK Hall ([id number])[facility] ([facility])[address] [place] [address] Platelets (Bld) [#/Vol] 222 x10*3/uL Normal 150-450 [facility] Comment on above: Performed By: #### 5 8410-2 ####DERRICK Hall ([id number])[facility] ([facility])[address] [place] [address] RBC (Bld) [#/Vol] 4.30 x10*6/uL Normal 4.00-5.20 [facility] Comment on above: Performed By: #### 5 8410-2 ####DERRICK Hall ([id number])[facility] ([facility])[address] [place] [address] WBC (Bld) [#/Vol] 10.8 x10*3/uL Normal 4.4-11.3 [facility] Comment on above: Performed By: #### 5 8410-2 ####DERRICK Hall ([id number])[facility] ([facility])[address] [place] [address] Glucose Test strip manual (B ld) [Mass/Vol]on 03-30-2025 Glucose [Mass/Vol] 216 mg/dL High 74 - 99 mg/dL [facility] Interpretation and review of laboratory results Abnormal [facility] Glucose [Mass/Vol] 216 mg/dL High 74-99 [facility] Comment on above: Performed By: #### 2 341-6 ####DERRICK Hall ([id number])[facility] ([facility])[address] [place] [address] Glucose [Mass/Vol] 191 mg/dL High 74 - 99 mg/dL [facility] Interpretation and review of laboratory results Abnormal [facility] Glucose [Mass/Vol] 191 mg/dL High 74-99 [facility] Comment on above: Performed By: #### 2 341-6 ####DERRICK Hall ([id number])[facility] ([facility])[address] [place] [address] Glucose [Mass/Vol] 208 mg/dL High 74 - 99 mg/dL [facility] Interpretation and review of laboratory results Abnormal [facility] Glucose [Mass/Vol] 208 mg/dL High 74-99 [facility] Comment on above: Performed By: #### 2 341-6 ####DERRICK Hall ([id number])[facility] ([facility])[address] [place] [address] Glucose [Mass/Vol] 252 mg/dL High 74 - 99 mg/dL [facility] Interpretation and review of laboratory results Abnormal [facility] Glucose [Mass/Vol] 252 mg/dL High 74-99 [facility] Comment on above: Performed By: #### 2 341-6 ####DERRICK Hall ([id number])[facility] ([facility])[address] [place] [address] Glucose [Mass/Vol] 266 mg/dL High 74 - 99 mg/dL [facility] Interpretation and review of laboratory results Abnormal [facility] Glucose [Mass/Vol] 266 mg/dL High 74-99 [facility] Comment on above: Performed By: #### 2 341-6 ####DERRICK Hall ([id number])[facility] ([facility])[address] [place] [address] Glucose [Mass/Vol] 190 mg/dL High 74 - 99 mg/dL [facility] Interpretation and review of laboratory results Abnormal [facility] Glucose [Mass/Vol] 190 mg/dL High 74-99 [facility] Comment on above: Performed By: #### 2 341-6 ####DERRICK Hall ([id number])[facility] ([facility])[address] [place] [address] Glucose [Mass/Vol] 189 mg/dL High 74 - 99 mg/dL [facility] Interpretation and review of laboratory results Abnormal [facility] Glucose [Mass/Vol] 189 mg/dL High 74-99 [facility] Comment on above: Performed By: #### 2 341-6 ####DERRICK Hall ([id number])[facility] ([facility])[address] [place] [address] Magnesiumon 03-30-2025 Magnesium [Mass/Vol] 2.06 mg/dL 1.60 - 2.40 mg/dL [facility] Magnesium [Mass/Vol] 2.06 mg/dL Normal 1.60-2.40 [facility] Comment on above: Performed By: #### 1 9123-9 ####DERRICK Hall ([id number])[facility] ([facility])[address] [place] [address] Magnesium [Mass/Vol]on 03-30 Interpretation and review of laboratory results Normal [facility] No Panel Informationon 03-30 These images are not reportable by radiology and will not be interpreted by Radiologists. IMAGING [facility] RAD ONC CT SIM IMAGES ONLYon 03-30-[address] SIM IMAGES ONLY These images are not reportable by radiology and will not be interpreted by Radiologists. Normal [facility] Renal function 2000 panelon 03-30-2025 Albumin BCP dye [Mass/Vol] 3.1 g/dL Low 3.4 - 5.0 g/dL [facility] Anion gap [Moles/Vol] 10 mmol/L 10 - 2 0 mmol/L [facility] Calcium [Mass/Vol] 9.6 mg/dL 8.6 - 10. 6 mg/dL [facility] Chloride [Moles/Vol] 97 mmol/L Low 98 - 10 7 mmol/L [facility] CO2 [Moles/Vol] 33 mmol/L High 21 - 32 mmol/L [facility] Creatinine [Mass/Vol] 0.48 mg/dL Low 0.50 - 1.05 mg/dL [facility] eGFR - PINF [facility] Glucose [Mass/Vol] 133 mg/dL High 74 - 99 mg/dL [facility] Interpretation and review of laboratory results Abnormal [facility] Phosphate [Mass/Vol] 2.0 mg/dL Low 2.5 - 4 .9 mg/dL [facility] Potassium [Moles/Vol] 3.6 mmol/L 3.5 - 5.3 mmol/L [facility] Sodium [Moles/Vol] 136 mmol/L 136 - 145 mmol/L [facility] Urea nitrogen [Mass/Vol] 13 mg/dL 6 - 23 mg/dL [facility] Albumin BCP dye [Mass/Vol] 3.1 g/dL Low 3.4-5.0 [facility] Comment on above: Performed By: #### 2 4362-6 ####DERRICK Hall ([id number])[facility] ([facility])[address] [place] [address] Anion gap [Moles/Vol] 10 mmol/L Normal 10-[address] [facility] Comment on above: Performed By: #### 2 4362-6 ####DERRICK Hall ([id number])[facility] ([facility])[address] [place] [address] Calcium [Mass/Vol] 9.6 mg/dL Normal 8.6-10.6 [facility] Comment on above: Performed By: #### 2 4362-6 ####DERRICK BRAR L ([id number])[facility] ([facility])[address] [place] [address] Chloride [Moles/Vol] 97 mmol/L Low 98-107 [facility] Comment on above: Performed By: #### 2 4362-6 ####DERRICK BRAR L (01554)[facility] ([facility])[address] [place] [address] CO2 [Moles/Vol] 33 mmol/L High 21-[address] [facility] Comment on above: Performed By: #### 2 4362-6 ####DERRICK BRAR L ([id number])[facility] ([facility])[address] [place] [address] Creatinine [Mass/Vol] 0.48 mg/dL Low 0.50-1.05 [facility] Comment on above: Performed By: #### 2 4362-6 ####DERRICK BRAR L ([id number])[facility] ([facility])[address] [place] [address] GFR/1.73 sq M.predicted MDRD (S/P/Bld) [Vol rate/Area] mL/min/{1.73_m2} Normal >60 [facility] Comment on above: Result Comment: Calc ulations of estimated GFR are performed using the 2020 CKD-EPI Study Refit equation without the race variable for the IDMS-Traceable creatinine methods.https://jasn.asnjournals.org/content/early/ N.4428836400 Performed By: #### 2 4362-6 ####DERRICK Hall ([id number])[facility] ([facility])[address] [place] [address] Glucose [Mass/Vol] 133 mg/dL High 74-99 [facility] Comment on above: Performed By: #### 2 4362-6 ####DERRICK Hall ([id number])[facility] ([facility])[address] [place] [address] Phosphate [Mass/Vol] 2.0 mg/dL Low 2.5-4.9 [facility] Comment on above: Performed By: #### 2 4362-6 ####DERRICK Hall ([id number])[facility] ([facility])[address] [place] [address] Potassium [Moles/Vol] 3.6 mmol/L Normal 3.5-5.3 [facility] Comment on above: Performed By: #### 2 4362-6 ####DERRICK Hall ([id number])[facility] ([facility])[address] [place] [address] Sodium [Moles/Vol] 136 mmol/L Normal 136-145 [facility] Comment on above: Performed By: #### 2 4362-6 ####DERRICK Hall ([id number])[facility] ([facility])[address] [place] [address] Urea nitrogen [Mass/Vol] 13 mg/dL Normal 6-23 [facility] Comment on above: Performed By: #### 2 4362-6 ####DERRICK Hall ([id number])[facility] ([facility])[address] [place] [address] Albumin BCP dye [Mass/Vol] 2.9 g/dL Low 3.4 - 5.0 g/dL [facility] Anion gap [Moles/Vol] 11 mmol/L 10 - 2 0 mmol/L [facility] Calcium [Mass/Vol] 9.0 mg/dL 8.6 - 10. 6 mg/dL [facility] Chloride [Moles/Vol] 98 mmol/L 98 - 10 7 mmol/L [facility] CO2 [Moles/Vol] 32 mmol/L 21 - 32 mmol/L [facility] Creatinine [Mass/Vol] 0.42 mg/dL Low 0.50 - 1.05 mg/dL [facility] eGFR - PINF [facility] Glucose [Mass/Vol] 167 mg/dL High 74 - 99 mg/dL [facility] Interpretation and review of laboratory results Abnormal [facility] Phosphate [Mass/Vol] 3.0 mg/dL 2.5 - 4 .9 mg/dL [facility] Potassium [Moles/Vol] 3.1 mmol/L Low 3.5 - 5.3 mmol/L [facility] Sodium [Moles/Vol] 138 mmol/L 136 - 145 mmol/L [facility] Urea nitrogen [Mass/Vol] 15 mg/dL 6 - 23 mg/dL [facility] Albumin BCP dye [Mass/Vol] 2.9 g/dL Low 3.4-5.0 [facility] Comment on above: Performed By: #### 2 4362-6 ####DERRICK Hall ([id number])[facility] ([facility])[address] [place] [address] Anion gap [Moles/Vol] 11 mmol/L Normal 10-20 [facility] Comment on above: Performed By: #### 2 4362-6 ####DERRICK Hall ([id number])[facility] ([facility])[address] [place] [address] Calcium [Mass/Vol] 9.0 mg/dL Normal 8.6-10.6 [facility] Comment on above: Performed By: #### 2 4362-6 ####DERRICK BRAR L ([id number])[facility] ([facility])[address] [place] [address] Chloride [Moles/Vol] 98 mmol/L Normal 98-107 [facility] Comment on above: Performed By: #### 2 4362-6 ####DERRICK Hall ([id number])[facility] ([facility])[address] [place] [address] CO2 [Moles/Vol] 32 mmol/L Normal 21-[address] [facility] Comment on above: Performed By: #### 2 4362-6 ####DERRICK Hall ([id number])[facility] ([facility])[address] [place] [address] Creatinine [Mass/Vol] 0.42 mg/dL Low 0.50-1.05 [facility] Comment on above: Performed By: #### 2 4362-6 ####DERRICK Hall ([id number])[facility] ([facility])[address] [place] [address] GFR/1.73 sq M.predicted MDRD (S/P/Bld) [Vol rate/Area] mL/min/{1.73_m2} Normal >60 [facility] Comment on above: Result Comment: Calc ulations of estimated GFR are performed using the 2020 CKD-EPI Study Refit equation without the race variable for the IDMS-Traceable creatinine methods.https://jasn.asnjournals.org/content/early// N.7823523219 Performed By: #### 2 4362-6 ####DERRICK Hall ([id number])[facility] ([facility])[address] [place] [address] Glucose [Mass/Vol] 167 mg/dL High 74-99 [facility] Comment on above: Performed By: #### 2 4362-6 ####DERRICK Hall ([id number])[facility] ([facility])[address] [place] [address] Phosphate [Mass/Vol] 3.0 mg/dL Normal 2.5-4.9 [facility] Comment on above: Performed By: #### 2 4362-6 ####DERRICK Hall ([id number])[facility] ([facility])[address] [place] [address] Potassium [Moles/Vol] 3.1 mmol/L Low 3.5-5.3 [facility] Comment on above: Performed By: #### 2 4362-6 ####DERRICK Hall ([id number])[facility] ([facility])[address] [place] [address] Sodium [Moles/Vol] 138 mmol/L Normal 136-145 [facility] Comment on above: Performed By: #### 2 4362-6 ####DERRICK Hall ([id number])[facility] ([facility])[address] [place] [address] Urea nitrogen [Mass/Vol] 15 mg/dL Normal 6-23 [facility] Comment on above: Performed By: #### 2 4362-6 ####DERRICK Hall ([id number])[facility] ([facility])[address] [place] [address] XR CHEST 1 VIEWon 03-30-2025 XR CHEST 1 VIEW Normal [facility] XR Chest Single viewon 03-30 [facility] MMODAL UH MMODAL [facility] Work Phone: Radiology Study observation (narrative) [facility] Work Phone: XR Chest Single viewOrdered By: Con Dougherty on 03-30-2025 [facility] Work Phone: CBC W Auto Differential pane l (Bld)on 03-29-2025 Basophils (Bld) [#/Vol] 0.04 10*3/uL [facility] Basophils/100 WBC (Bld) 0.4 % 0.0 - 2.0 % [facility] Eosinophils (Bld) [#/Vol] 0.31 10*3/uL [facility] Eosinophils/100 WBC (Bld) 3.2 % 0.0 - 6.0 % [facility] Erythrocyte distribution width (RBC) [Ratio] 12.4 % 11.5 - 14.5 % [facility] Hematocrit (Bld) [Volume fraction] 41.7 % 36.0 - 46.0 % [facility] Hemoglobin (Bld) [Mass/Vol] 13.2 g/dL 12.0 - 16.0 g/dL [facility] Immature granulocytes (Bld) [#/Vol] 0.05 10*3/uL [facility] Immature granulocytes/100 WBC (Bld) 0.5 % 0.0 - 0.9 % [facility] Interpretation and review of laboratory results Abnormal [facility] Lymphocytes (Bld) [#/Vol] 1.04 10*3/uL Low [facility] Lymphocytes/100 WBC (Bld) 10.6 % 13.0 - 44.0 % [facility] MCH (RBC) [Entitic mass] 31.1 pg 26.0 - 34.0 pg [facility] MCHC (RBC) [Mass/Vol] 31.7 g/dL Low 32.0 - 36.0 g/dL [facility] MCV (RBC) [Entitic vol] 98 fL 80 - 100 fL [facility] Monocytes (Bld) [#/Vol] 0.88 10*3/uL [facility] Monocytes/100 WBC (Bld) 9.0 % 2.0 - 10.0 % [facility] Neutrophils (Bld) [#/Vol] 7.47 10*3/uL [facility] Neutrophils/100 WBC (Bld) 76.3 % 40.0 - 80.0 % [facility] Nucleated RBC/100 WBC (Bld) [Ratio] 0.0 % [facility] Platelets (Bld) [#/Vol] 205 10*3/uL [facility] RBC (Bld) [#/Vol] 4.24 10*6/uL [facility] WBC (Bld) [#/Vol] 9.8 10*3/uL [facility] Basophils (Bld) [#/Vol] 0.04 x10*3/uL Normal 0.00-0.10 [facility] Comment on above: Performed By: #### 5 7021-8 ####DERRICK Hall ([id number])[facility] ([facility])[address] [place] [address] Basophils/100 WBC (Bld) 0.4 % Normal 0.0-2.0 [facility] Comment on above: Performed By: #### 5 7021-8 ####DERRICK Hall ([id number])[facility] ([facility])[address] [place] [address] Eosinophils (Bld) [#/Vol] 0.31 x10*3/uL Normal 0.00-0.70 [facility] Comment on above: Performed By: #### 5 7021-8 ####DERRICK Hall ([id number])[facility] ([facility])[address] [place] [address] Eosinophils/100 WBC (Bld) 3.2 % Normal 0.0-6.0 [facility] Comment on above: Performed By: #### 5 7021-8 ####DERRICK Hall ([id number])[facility] ([facility])[address] [place] [address] Erythrocyte distribution width (RBC) [Ratio] 12.4 % Normal 11.5-14.5 [facility] Comment on above: Performed By: #### 5 7021-8 ####DERRICK Hall ([id number])[facility] ([facility])[address] [place] [address] Hematocrit (Bld) [Volume fraction] 41.7 % Normal 36.0-46.0 [facility] Comment on above: Performed By: #### 5 7021-8 ####DERRICK Hall ([id number])[facility] ([facility])[address] [place] [address] Hemoglobin (Bld) [Mass/Vol] 13.2 g/dL Normal 12.0-16.0 [facility] Comment on above: Performed By: #### 5 7021-8 ####DERRICK BRAR L ([id number])[facility] ([facility])[address] [place] [address] Immature granulocytes (Bld) [#/Vol] 0.05 x10*3/uL Normal 0.00-0.70 [facility] Comment on above: Performed By: #### 5 7021-8 ####DERRICK Hall ([id number])[facility] ([facility])[address] [place] [address] Immature granulocytes/100 WBC (Bld) 0.5 % Normal 0.0-0.9 [facility] Comment on above: Result Comment: Arlen ture Granulocyte Count (IG) includes promyelocytes, myelocytes and metamyelocytes but does not include bands. Percent differential counts (%) should be interpreted in the context of the absolute cell counts (cells/UL). Performed By: #### 5 7021-8 ####DERRICK Hall ([id number])[facility] ([facility])[address] [place] [address] Lymphocytes (Bld) [#/Vol] 1.04 x10*3/uL Low 1.20-4.80 [facility] Comment on above: Performed By: #### 5 7021-8 ####DERRICK Hall ([id number])[facility] ([facility])[address] [place] [address] Lymphocytes/100 WBC (Bld) 10.6 % Normal 13.0-44.0 [facility] Comment on above: Performed By: #### 5 7021-8 ####DERRICK Hall ([id number])[facility] ([facility])[address] [place] [address] MCH (RBC) [Entitic mass] 31.1 pg Normal 26.0-34.0 [facility] Comment on above: Performed By: #### 5 7021-8 ####DERRICK Hall ([id number])[facility] ([facility])[address] [place] [address] MCHC (RBC) [Mass/Vol] 31.7 g/dL Low 32.0-36.0 [facility] Comment on above: Performed By: #### 5 7021-8 ####DERRICK Hall ([id number])[facility] ([facility])[address] [place] [address] MCV (RBC) [Entitic vol] 98 fL Normal 80-100 [facility] Comment on above: Performed By: #### 5 7021-8 ####DERRICK Hall ([id number])[facility] ([facility])[address] [place] [address] Monocytes (Bld) [#/Vol] 0.88 x10*3/uL Normal 0.10-1.00 [facility] Comment on above: Performed By: #### 5 7021-8 ####DERRICK Hall ([id number])[facility] ([facility])[address] [place] [address] Monocytes/100 WBC (Bld) 9.0 % Normal 2.0-10.0 [facility] Comment on above: Performed By: #### 5 7021-8 ####DERRICK Hall ([id number])[facility] ([facility])[address] [place] [address] Neutrophils (Bld) [#/Vol] 7.47 x10*3/uL Normal 1.20-7.70 [facility] Comment on above: Result Comment: Perc ent differential counts (%) should be interpreted in the context of the absolute cell counts (cells/uL). Performed By: #### 5 7021-8 ####DERRICK Hall ([id number])[facility] ([facility])[address] [place] [address] Neutrophils/100 WBC (Bld) 76.3 % Normal 40.0-80.0 [facility] Comment on above: Performed By: #### 5 7021-8 ####DERRICK Hall ([id number])[facility] ([facility])[address] [place] [address] Nucleated RBC/100 WBC (Bld) [Ratio] 0.0 /100 WBCs Normal 0.0-0.0 [facility] Comment on above: Performed By: #### 5 7021-8 ####DERRICK Hall ([id number])[facility] ([facility])[address] [place] [address] Platelets (Bld) [#/Vol] 205 x10*3/uL Normal 150-450 [facility] Comment on above: Performed By: #### 5 7021-8 ####DERRICK Hall ([id number])[facility] ([facility])[address] [place] [address] RBC (Bld) [#/Vol] 4.24 x10*6/uL Normal 4.00-5.20 [facility] Comment on above: Performed By: #### 5 7021-8 ####DERRICK Hall ([id number])[facility] ([facility])[address] [place] [address] WBC (Bld) [#/Vol] 9.8 x10*3/uL Normal 4.4-11.3 [facility] Comment on above: Performed By: #### 5 7021-8 ####DERRICK Hall ([id number])[facility] ([facility])[address] [place] [address] CBC panel Auto (Bld)on 03-29 Erythrocyte distribution width (RBC) [Ratio] 12.3 % 11.5 - 14.5 % [facility] Hematocrit (Bld) [Volume fraction] 40.5 % 36.0 - 46.0 % [facility] Hemoglobin (Bld) [Mass/Vol] 12.8 g/dL 12.0 - 16.0 g/dL [facility] Interpretation and review of laboratory results Abnormal [facility] MCH (RBC) [Entitic mass] 30.7 pg 26.0 - 34.0 pg [facility] MCHC (RBC) [Mass/Vol] 31.6 g/dL Low 32.0 - 36.0 g/dL [facility] MCV (RBC) [Entitic vol] 97 fL 80 - 100 fL [facility] Nucleated RBC/100 WBC (Bld) [Ratio] 0.0 % [facility] Platelets (Bld) [#/Vol] 194 10*3/uL [facility] RBC (Bld) [#/Vol] 4.17 10*6/uL [facility] WBC (Bld) [#/Vol] 11.3 10*3/uL [facility] Erythrocyte distribution width (RBC) [Ratio] 12.3 % Normal 11.5-14.5 [facility] Comment on above: Performed By: #### 5 8410-2 ####DERRICK Hall ([id number])[facility] ([facility])[address] [place] [address] Hematocrit (Bld) [Volume fraction] 40.5 % Normal 36.0-46.0 [facility] Comment on above: Performed By: #### 5 8410-2 ####DERRICK Hall ([id number])[facility] ([facility])[address] [place] [address] Hemoglobin (Bld) [Mass/Vol] 12.8 g/dL Normal 12.0-16.0 [facility] Comment on above: Performed By: #### 5 8410-2 ####DERRICK Hall ([id number])[facility] ([facility])[address] [place] [address] MCH (RBC) [Entitic mass] 30.7 pg Normal 26.0-34.0 [facility] Comment on above: Performed By: #### 5 8410-2 ####DERRICK Hall ([id number])[facility] ([facility])[address] [place] [address] MCHC (RBC) [Mass/Vol] 31.6 g/dL Low 32.0-36.0 [facility] Comment on above: Performed By: #### 5 8410-2 ####DERRICK Hall ([id number])[facility] ([facility])[address] [place] [address] MCV (RBC) [Entitic vol] 97 fL Normal 80-100 [facility] Comment on above: Performed By: #### 5 8410-2 ####DERRICK Hall ([id number])[facility] ([facility])[address] [place] [address] Nucleated RBC/100 WBC (Bld) [Ratio] 0.0 /100 WBCs Normal 0.0-0.0 [facility] Comment on above: Performed By: #### 5 8410-2 ####DERRICK Hall ([id number])[facility] ([facility])[address] [place] [address] Platelets (Bld) [#/Vol] 194 x10*3/uL Normal 150-450 [facility] Comment on above: Performed By: #### 5 8410-2 ####DERRICK Hall ([id number])[facility] ([facility])[address] [place] [address] RBC (Bld) [#/Vol] 4.17 x10*6/uL Normal 4.00-5.20 [facility] Comment on above: Performed By: #### 5 8410-2 ####DERRICK Hall ([id number])[facility] ([facility])[address] [place] [address] WBC (Bld) [#/Vol] 11.3 x10*3/uL Normal 4.4-11.3 [facility] Comment on above: Performed By: #### 5 8410-2 ####DERRICK Hall ([id number])[facility] ([facility])[address] [place] [address] Electrocardiogram, 12-lead P RN ACS symptomson 03-29-2025 Atrial Rate 105 BPM [facility] Work Phone: [phone] Q Onset 220 ms [facility] Work Phone: [phone] QRS Count 15 beats [facility] Work Phone: [phone] QRS Duration 132 ms [facility] Work Phone: [phone] QT Interval 392 ms [facility] Work Phone: [phone] QTC Calculation(Bazett) 490 ms [facility] Work Phone: [phone] QTC Fredericia 455 ms [facility] Work Phone: [phone] R Ramsey 112 degrees [facility] Work Phone: [phone] T Ramsey 105 degrees [facility] Work Phone: [phone] T Offset 416 ms [facility] Work Phone: [phone] Ventricular Rate 94 BPM [facility] Work Phone: [phone] MUSE [facility] Work Phone: [phone] [facility] Work Phone: [phone] Atrial Rate 86 BPM [facility] Work Phone: [phone] P Ramsey 43 degrees [facility] Work Phone: [phone] P Offset 191 ms [facility] Work Phone: [phone] P Onset 129 ms [facility] Work Phone: [phone] NV Interval 184 ms [facility] Work Phone: [phone] Q Onset 221 ms [facility] Work Phone: [phone] QRS Count 14 beats [facility] Work Phone: [phone] QRS Duration 124 ms [facility] Work Phone: [phone] QT Interval 382 ms [facility] Work Phone: [phone] QTC Calculation(Bazett) 457 ms [facility] Work Phone: [phone] QTC Fredericia 431 ms [facility] Work Phone: [phone] R Ramsey 103 degrees [facility] Work Phone: [phone] T Ramsey 121 degrees [facility] Work Phone: [phone] T Offset 412 ms [facility] Work Phone: [phone] Ventricular Rate 86 BPM [facility] Work Phone: [phone] MUSE [facility] Work Phone: [phone] [facility] Work Phone: [phone] Glucose Test strip manual (B ld) [Mass/Vol]on 03-29-2025 Glucose [Mass/Vol] 165 mg/dL High 74 - 99 mg/dL [facility] Interpretation and review of laboratory results Abnormal [facility] Glucose [Mass/Vol] 165 mg/dL High 74-99 [facility] Comment on above: Performed By: #### 2 341-6 ####DERRICK Hall ([id number])[facility] ([facility])[address] [place] [address] Glucose [Mass/Vol] 99 mg/dL 74 - 99 mg/dL [facility] Interpretation and review of laboratory results Normal [facility] Glucose [Mass/Vol] 99 mg/dL Normal 74-99 [facility] Comment on above: Performed By: #### 2 341-6 ####DERRICK Hall ([id number])[facility] ([facility])[address] [place] [address] Glucose [Mass/Vol] 109 mg/dL High 74 - 99 mg/dL [facility] Interpretation and review of laboratory results Abnormal [facility] Glucose [Mass/Vol] 136 mg/dL High 74 - 99 mg/dL [facility] Glucose [Mass/Vol] 146 mg/dL High 74 - 99 mg/dL [facility] Interpretation and review of laboratory results Abnormal [facility] Glucose [Mass/Vol] 140 mg/dL High 74 - 99 mg/dL [facility] Interpretation and review of laboratory results Abnormal [facility] Glucose [Mass/Vol] 191 mg/dL High 74 - 99 mg/dL [facility] Interpretation and review of laboratory results Abnormal [facility] Glucose [Mass/Vol] 91 mg/dL 74 - 99 mg/dL [facility] Interpretation and review of laboratory results Normal [facility] Glucose [Mass/Vol] 91 mg/dL Normal 74-99 [facility] Comment on above: Performed By: #### 2 341-6 ####DERRICK Hall ([id number])[facility] ([facility])[address] [place] [address] Glucose [Mass/Vol] 105 mg/dL High 74 - 99 mg/dL [facility] Interpretation and review of laboratory results Abnormal [facility] Glucose [Mass/Vol] 105 mg/dL High 74-99 [facility] Comment on above: Performed By: #### 2 341-6 ####DERRICK Hall ([id number])[facility] ([facility])[address] [place] [address] Glucose [Mass/Vol] 101 mg/dL High 74 - 99 mg/dL [facility] Interpretation and review of laboratory results Abnormal [facility] MR Brain WO and W contrast I Von 03-29-2025 MMODAL MMODAL Radiology Study observation (narrative) [facility] Work Phone: MR Brain WO and W contrast I VOrdered By: Lupe Green on 03-29-2025 [facility] Work Phone: Magnesiumon 03-29-2025 Magnesium [Mass/Vol] 2.02 mg/dL 1.60 - 2.40 mg/dL [facility] Magnesium [Mass/Vol] 2.02 mg/dL Normal 1.60-2.40 [facility] Comment on above: Performed By: #### 1 9123-9 ####DERRICK Hall ([id number])[facility] ([facility])[address] [place] [address] Magnesium [Mass/Vol]on 03-29 Interpretation and review of laboratory results Normal [facility] No Panel Informationon 03-29 [facility] Non-gynecological cytology m ethod studyOrdered By: Peter Shirley on 03-29-2025 Disclaimer b5jxkFVtKTVqwOBiUxMm MDAwXG Qow3xiSLEyyZMsFqBaDqAmHiWx ZastlAEwPPHvUhJes3tor475qC Yys4ulVFGhLcR1tIMmWWSjxFbt gpw5hQycSrQzWFOgm7zceoMkLr VhUWMyAGZyJEKvdBsvvkl0lNbj FhUdLAHfpKymWEHjAKy2aR58LN DqxZ0uaMZePCmmdzWeZsF3GTtz NJKaNdD0QUGjiWMyYZIyZ3waFH GbOEkiHVRzXLwyjEUiDYA7pYlp b5W1mORoqHAwdYppSsEkTbQoYh BEu6AkCNe5aXklO1JeFWVjVgT6 nVKoNYTzFWkaVHJpQFAaqaI7tH tytvTan17nrINoVGVxTNQzJmLz J23wsx8nxO29gU36LIxrbwK6pO Ust0Lwk46gc561xB2vxTZzSTT6 DADzUPChaLXaBQZmRHS4PGRndG RhN0jeBTTrMF9mlcpnUDlmSVnu YOUjfVK8TXRwfRIeJ2OaDFRsCE qeNRNwuwe8UqTpXy0ieTOxzUay GYtwh5nvj3pnwMTsFmy8XGHoXb RvXpogGUuzp0Twt3rcRUBruc5e KHO0wKUnuVzga5V4iOAiCFMqgT BwyyElRBUbVtL3SMupIV8ygg96 OZBtUVQ2wn1keSHxfBpbrxYxdV BtYKkoQ0CcMRMki141AUXbA7Tk UKVfg4D7hhSvVlTqLZXjzJH9vp N3ZDUyMOh7gZEytnU1zxUoiKPd N6drgR6vJLXwPX6ufgilt3cpCJ kiDDsnSPSdcUL1jcO6AWTzzNJp K9UefU1fBHEjJSsbBKZrcpm3Uy LrTb0oqJMmkGnbIOskKkqqFKty XHBnbmNvbnRccGduZGVjXHBsYW luXHBsYWluXGYwXGZzMjRccGFy PHggb8KgbqLdqVikQSJpXQJ7Bi X5CNI2VBB4HSo7rFXvVyWxsDhr VFmoEHD5KiXrCOs8xJAvUeRcdC c0VXKbAYY7GPh9AMm5lVC4TGFm sIc0CtSqPQT8ZayhRTu8lVf2WF WvzLc3UhZgNIG3OJTvCVKtaXti zLpcuG4dKrCxBvRnXtbiRW2hYN GhH6masFUyCKTmMDTrD0vlUxEb xH4ygGezGCmiSnSmMtWgJmXHgl Gmi8YfwN1uAGHqPdE3xAMatxVf K8IvpYVmqCQiAGD7feLfLZFjc2 NcEJFff3M8xcZkeaV4tVrePGSe MRRfbFRyAC9KWQKqVTGeTUWdbj LrbS9xGOEvr07ig28jaoIvQYOv lrHxNXRuHAWtvX2cRuBkIB7dlP b9KMLovXFecKTxGaDoJLGdFO46 qwYlYQWUU7ZdZdMzUZMHJ7AfsJ Y1BIJrh8CrKgXlxxKstNFysrRm WR7zGMXbhKQmukHuSIG4UNUnYP NQGtRgPOXcy1FwEO6uHXIsvVfx NBBokH7gi2JoKNLcj76tAJCYtD NfBEOnj4GuhIOry3TqZDFbRUFz yO0iGRPfBY3vGMZmWJgcGGHgqb Icoz2hbxSbFZYpYMKqY2Azqwax bEvelmEbITXfym8exfTnCQT5UZ KwWFONAPDztqEzUC44OK0tYPEt qQuqxC0dwAVknZODibd9QFCyxS F1FUvqm7JocIDiifCRlNA8NFcr sdSkLKHupIIhxRNWGN11NESnLH SdIZROCHMrZS5ccxRib5MgihTv lTbtJTU3bLdlUDYrt3UmfL5kS6 6ftLfsp7GmoKCrbpAvZLWnWXCc MwSBYENjqxdvjx1nCKgobkF8VN X0SSnxZTNbGIIcJv7eFJXgxE0b I4QlAMO6utDli9BnDlCUsEMowN 10qKVgxq05ICJzUUXbQ9LqTXMd NLXvWOllcoBauScqQJIcn74wwF FppoIzx3VhduCjYNOmG6vlTELv wIJmsFOiu9RmjF3kwUEyrxZrLU O8pMPvKSEbmL1lOLXqjNvoAYLt iH2nQ3BmOKkjGq7mBUGjpaanMY 4ffh25LG5surPsDG7sfeAlSW84 acOwI3mWHOhkWIFbnQQptRxflJ NnVCFiSHZwlpRlex0iiQbdrMFd i69rjZA7rZP9MTWvuY6uN7VrHK zkIr4qNGPbdmpmkOLvmIrhRs4w GOHgMAXyt9IypLIgq2IcBPOsIG Fxn5JuKYCzh6z8bBCmmNVgw8Jc wUI6SXPdb8SsdRr8BAOvfpLlwt BsNQCslbOoZ84uiYFwgQMik2qw H3aln7VzgB7mIRBwuPCvo6TqyD P2EKm0MlqcYVF7 [facility] Work Phone: Laboratory comment Darío (Report) s2wswJJwRTOmb6mpNIIjyNObYe EwMzNcZnRuYmpcdWMxIHtccnRm IHuno6VsK1VrVmIzVGutxeRyCU ItYbbjdduhSWKcUNE9iaIfJEKs FZxyXAYlAUjbUi1ieKEwrSitZe VvUQHjr9ezmoCPWUarMPYLOZl9 c7jvHMAmGsZ3nAAaKRoeQ9ecns AudJVyW6Trc1RsXJn8cG21WNZa bZ5umNBkQMlqpeJmJsR0JCamFU QbStY9MWMmaUXlULRvW9ogAFWi DIwcQXFtROjzqHAqYBN1oXsvu5 E2oKXhaBBwrQibJsTpDcYbAvVI y3IoUHy4mAftR0NyMPRdMuM6mH ZyEENpSEpyRGHuMJOawxN3pN75 ZGcsasV1aYSmt5Nyk35xt113eQ 8zzLNoTMP8XHVwHAWqrLKrKBUg VOC1MVXgwRDnF6ixTlIblGOfC1 HkHdKvwBMqZ3GnIxMelVFlJ4Pe VcHioHOgCWBtoCR1VOzlx495YO C2GmPaPX7oD2Kju4Q1kK0lyKZe PCXvoTUbGzUxKFAkbe2ckKVtJW rur4AaBZE2wcX9fBDlyTQrPOUs SO71Jiaae1PvXztzLIH9CRPywh Iwk7Ifw4ceZbPuloBhC2dhA9Jy IMIcZRCvBUWjYzDfawRmm0Jei7 UpjDIweZg9u5elNIXpIJOsrVnk o1kdNNA9JMJtG7X3cFIxg3vxYG fiMNVypSD7zuV7KTghYUWddcN5 bvU5ZMctFYOvxGG0mcY0WTaePK FiTfA6ewX5FJsiDDClIWI3AlQq SYOqs1FpjcvqDgOjx2YtbQHqCT paP09tr423GDOjqtKaU9qusQQv mzxywCQnkuzcIOkrdxZ1BFUsFB BsYWluXGYxXGZzMjBcbGFuZzEw MzNcaGljaFxmMVxkYmNoXGYxXG zhP4guKaOgIdGlTBWVaYU4dFJq o9qyjbT9kOJyCY2cDXLlaXJfsr Uso4L9SCO1cSQmiJ2yoMMuIBUd eQQjdyJdbi19nWUiuJX6FYOmGT DtgZApvX6tPIYiGEYNfP0pkSRI zeFsnzScWQUglVnwwb0ZcIWyhd 5sjAJbQ2FblRwkeXDkHBAxODJl eAubjMNpSUWcFFVjifpiy1PvDG PizWPaK6IuJW9lNENlxk14 [facility] Work Phone: Laboratory comment Darío (Report) d8bvfRDnSAKtrCUmAwJnLPXsFL Oyw2epNTDwbCXwSqGqCwVoXpTg ZzobzHQbIZYgKfTyx8ace222fT Hfw3lfXNTbYsX1rYVhHVDwY34b QOFBH620YMMpUPbla2gip1IxTS BtbLNsn3E5TAZUZPtcXTJZKGr0 hUwjC68ph5B3QhzrE7sbAPGhXJ YjG7KyCO3vHHRkJra8HUW3ZBX8 IYChTEVkZ3MeXS8rRHGbbIRaSC m7a0homJtuQXUeFSF0w7aaCOse fxIvYQ3vvv4dvBn4h0qsxlNyFW IeCTDmzJUXWBJpA3SjfGolGt7p yQt8yHsdWzsiHJK7Ojr4QF4mxa 50ghs2gRqpJQDzkyauHsO7PZmb LTErkiruGSh3GXvdNMCivXO4EZ XitYVgK0IdIZDfLM5qlfu5EJW5 HYugNJIsKoN5OBBwaDUnUEOsqH mvUDmpg175GFF8HgJaFS6bQ3Py n0S7pU9guKGaIXQooKNkDtYnEZ Mibs5zvZGtHEbbc7SdEZR4pxN6 hDXhwDZaOJMnBA04Pfxbs2KzEi ptQPG0KILypcMrz7Zwu2xyZuUo icJuZ7ldU5EiMJYuACSpLEKgFz SygjXgk9Ofs6JenIBigPy3d3sv HQOwMDVrpTerv2hfQRO4MTWsU1 U4sZFxe9hcYRlqAZMtoIJ4gqD8 SYCztUEmQ6ExpK5vNBTvVU4ull u3v6ygNHO5DFzeJSIiMsY3kyI3 CZFvgDWcONHeaMqlORist891SG F6NnFqJIPus9KfV0OhwUbnG06i mMfmD60eWJKzeKsjsY2udOxwnF 5cZjBcZnMyNFxwYXJkXHBsYWlu XGYxXGZzMjBcbGFuZzEwMzNcaG fddRirRGauTlRsDBEgIVojO6no ZjFcZnMyMCBBMQlTbGlkZXMgT2 3xyOTmYc0pIwaaD0qlTBvxQQLd SVJwFPcRvZCqRVL2oIozH7NnhD 6oT28oRGJmIiqDMqsaxPXhFRVk UQJRRSXyDHR6SExiOPCuRRXoJL 5DCF2UGJAnamQMXH2vLVFtUsNa UXVpayBTdGFpbiBTbWVhciBOR1 iBKYwvWVDnWYRsEMiZQGCxU5Df xT7qD99aJMBtWdyZUjuiqVFlDJ GjDVKJJXcrCwNWqFbpBAV9ACmm FMPtRVBuEX6KYO8RSWGdhdRVBB 02CVBhcCBTdGFpbiBTbWVhciBO B8yIXRwfUKCiAJVzDvcEnJQeGI F8vRifG7CvbK4aW16kVXTlGjtR PqmawXWpQQWgDJwTVUFtOUK9HB siTQTpCUHvNU6GZF2GPWDdoaUW XZ73RUKnMoYyFLYwemKKkHZfnb HUyIGdwcLGB7jZHTwbGKNkCQUa LCIGZHPvHJP4ELbdGDMbJUHbME 7EPU9DZSWvayCZLxbSDSaaFTFn f8TgNAgnCWOeZXCoVJsTPoISII FkylAJPNgQlLrxNLMqU90beIFj Dh9gMpziU2seFDhmAHYaYgKhKJ aNTGOpH6UhiD1rFhwMPuOUtXoa UHJlcAlccGFyIEIyCUNlbGwgQm quG4rOTRVbzlNYOm7mVGkfZHit aDCcMBWrEDJcrIUtkfOMfzo1LJ jAxgNCdA6ixikTVVLiqvSXXF9r KSBmnPDZbNNwgtHJG0rDPLVciD 4DveMmOKhfCBYtKtOJL9XfeZVQ kD5hgjjyrMPcNANwEHNEQMFJOX uhRJNeEOQMJ8scZJGmYR4cgTka GL0gZRPdr1TqMXkwoVVtQFDqVO TGHXUmUUF0QSlvPT9ZMO7gPWvm blByZXAJXHBhciBEMglDZWxsIE Bny6WtMQraFBHgKQAqWMoDMcQT XHBsYWluXGYxXGZzMjJcbGFuZz EwMzNcaGljaFxmMVxkYmNoXGYx UAsgA2duQuZcGcWyElyoBNT5 [facility] Work Phone: Pathology report Cancer Narrative [facility] Work Phone: Pathology report final diagnosis Narrative a8wbvQNuAOJaxSOxUPJaIfapad XfKYYbgSNuQ0IkutzyQTipRG4a YR9hrFownLNrtLZoAXWrRqYez2 jba682pGBeh1geEWMCfokceTm3 q0mhPJRKHCvhRWUIMHt0xVheV1 8hd8B2RfnzH8jtCJWpRFtxqdIc vzA8EETlcENdPYt9YOMabAQphj FkIoHcTUNthCQiwQK4HCHkPM8n hxqzDHllLHscJSKdjtR0OZLqaP QsI9CbKABqKK1xkxndWTB8BAyx LOTaWEO9IgXyTIBns3Vxzlc2Rk XkdLq1d2jaENRdDBEddKvki3fr LIM6QRBclZYkR8ksaX7tNKRbGH 3dztveu2mmVStxKSvsJQAblOZ1 hgG8HCCvfNRoJ3EizA6bTLCnNN TqdmOxqNdtcE1pCvTaUiVlWCia HoWpZM8tLKuozSjhza5eBXF3Xe UmqFizm82jbifkRlhrLGQtLKJr bGUgYXNwaXJhdGlvblxjZjAgLC NwsMSnbA8eiVDyplRkU8BohVWw dT0lnbsihNMuSPTjLMFtbULyBK CaiSzfDM73WRBwqMauLCOqutm4 RILuQdZvmITyn00eq00ptRweM6 IxjLBzFCYnzR9vzFYfHIEygf5i EUNgPF5oL8RbM4hef11bHeJwQ5 CiTY0gaHDmXCPvqegxepWpz9iv DJUhNMGgRZYvtaD8QFFcpWEkyT NqnYGpBHDsj4fgC8hen1NuU9hm ZB7iPeK4NIAwIzLyOmuwESWkmH OjPSGeykf8aYGzeXidWNZwBJ6y KOU5sDWjGIMpz3OswnuwaDZzXZ CeDE2un5ZuBILzTWMufdSahaUa gOt8shW9gWsjGIEsSHnlb0PnUY LsniZgFXMfbMNnAQZgFLEobS3p cO7qcWSmQZSySEYcEAxrYKEul5 BsUCKrfzYnvW0yCNonke33FOA0 i7qkaLDfHFqkBigftRYszvF1GA cBSYZMWGyIUjUcET7eEStKT8RS XHjBGysnMtPsKRfltDF3z1sgtU Jbp9s5JYtqEEL5nC8oBAUjLXIl w7edhKRjRKeiZbzpqFVtcaS4TV jUJDUEQWiWXoXoIQ5bAGkAM0ET PbK5Hle0QGh0QJikpPxyByligt OswUHuDxTsnU6hlNglvJ0iObGy HjQeFUHryNNsb3YsW2QswXYvHC UuqCvzufOdrvPoDQ48aD2nNEPt gEfwhUecVrGhXB3mESZndFRquW SdTLQ7EWAvZ9ZwqOSzTQPgtzrv f5sjUIR6lGXbjfygYuYlyTLrFD RtnoEOUoOFwM1arXFei3WlYIJd JPExrYwuj62hseveHlgtHDKeVO VkbGUgYXNwaXJhdGlvblxjZjAg IWJodHHsjA7edMFijvHzH2MgyY OmhD2gvmrpU6BwECJdkSNsDLRe FPexceFbo4klXAi8yUSui6txLY TtWWSwiOGdTeGidrVsDIblK83k ieW0QBriKK04wBYcBGKeFSMnwn hpEuNccKImSQFunftzVGNvFf9y PGiheSxsjz7hZEW0APEntChxx8 5hcnkgZmluZSBuZWVkbGUgYXNw aXJhdGlvblxjZjAgLCBjeXRvbG 1jmTVwlqMbC2YowRUncY7scgwu F4IvXWVvpBUpJYVdDQrticSnc5 maNRh5cJLnq0byPCNzAATuaHSy KeKtblFfKSjkD51asyB5BKzqFV 50aWZpZWQuXHBhclxjZjFcdGFi ORAbymgbGRXdPJ2zPKrwpElygf 1yNFH1PYD4pT2gicAwaKSboH0c HS0wBBLmXKYkr3TgfcR5tG1nKS AgEQKgXIW8oI1qv9p9WIDbYVBl XFqvPPSwa7WyQwdiDbRoLYbpTS WzG6XxOCEuJDMahHBpDVIvgKbu QW29MHNbsBvfFKKbock6QVJgCn KxgJSyg57xu41ymRehX3BgkWLa AJZczE6jzJFoWvO0p5AnBNWrdu 3fMUEorX2gkKHpAPWRIQJotf61 HM8vlXLjPTXgyxAKy2CkUtKOeZ EibA84zj3rfJBzwukzJsCyZVEs v5QeAQYka02yqInzGJGbkLopsX 7qhhihqQlpLJI0jE6jUMDyjZso XZIhFJCyf8IetXg7PPPcy1IyJA OOEVIcPAbAB0ntNCGodpByQ4w7 DQVcqxZixyVeFYSdtcSgWr1mOE R9TAaxy2JrmH7yvKg4ITYvVqX9 yHKjSKXsgtEsXXlhI39uh0ouLm aiNNAaF9AsQKOfrea1APWkrVFi JVepc8rqFMRrgUFdWGLyunj8BS GEOZZYAQcWTY7WPOJZQGBSVP5X IEsZKjOfMvPwEIwsFSNkI15NVv BHOTAOT92TIXAZFULGW1ELCSTI VNgIP4VZUI5XTHJOGNDNEY4PIG xBLtBWWXtQG5NNDN3IDFFIMLNT AK2THcRtHGmKV1AMR0bMCYQkJZ HVTSCPMXSbVvWIHK9tDSo9yI77 M93hPT7trRdkLjH5OvK3GN9bNH kMF9RSM3rYMACdCLOMOJHCVGQd NL8VVKnNBP3VKXDuOMAWMWMKWM IkLpUYLB5sXBhYJH9VQSNmXSBB RWCFNTTcDR7UNLFJPH3SXWKBDE EMM86HVWQRRKNGS2OFW5fKKAWN ITDGKiFGIyVLSY4LOIIVFRVSJY 9FTkR9 [facility] Work Phone: Pathology report gross observation Narrative o4qlxYKrEBMvaSIXVNQyJSLjSJ 4idAhncHr3pHkfMIKqrfE5jPOm CTpgl0uhLGF7d2hoeaTMMrzpGC XpZuxfRWPvcqhjCvS2FVtwUOMz pggtHPm4XYvxYDKirUI4NTYqwF OfT4XlTVNjVD6wwcm3LDS9DQor AWPbNhL9GHJvXBm0AJBjohF1Ai xaZUy2CHPsNXIhnNNic8P5BKyz l2axz1MgHZXsAOr8iZ1Dt4wlKa stJ2jvlvPgwCRwQfL4wCLcXCSu Q80hICEKF670CUmvc2AlhRRdSV l7GDvqJABbQ3OrZ6RaOKrtNcPs RDjpYVTnQUQqWUnsRKCqL5IXPN XlAuf0OBarAgLlQDx6GOz1TTPW MHS5FAjfSPK5VOy0YFq1HHbssh emPUp6OVBqXRvuiQNxUB8ohUno KpitqZhzk6WbsYTzPXIhMDqnkH QgNTEwMDIgXFxkYiBPVlIgIiAy ZRO6BCQcYWNcWCw5IAdgH6IQYP TcKLOhEMa1OWw0OrJ6YIa3DTXT Dj1pGMZ4XDIwBdtvDDW4ORQfHF BcXHQgMiBcXHNzIDMgXFxmbCBc TO3huQnyADOnRL7KTUHpTYsjIH xzunuqSHXwVRVcZeVeVW4mABbE UXdeWt7TAUX9HPTwCWLPKG2RSH JZIEZJTkUgTkVFRExFIEFTUElS QSGFF13aNDk3qeXnDIJbDFKgYl MnrRUlOE4WVODqrgXkCSblsCon eM8yvIAcN3rlmAGmOrYgAtOpRs xlcGljTmVzdERvYzEgDQpccGFy LLkxbWQbTSIkpEa0FOClKY5OHI XwRsHdJtPfDUo8HGJnKXGnFZxd YGI7YGJbHHEvjzXoTYKouSOsRH GkEZDoJKooYu1FoUtjLIZiOSG7 VPTdcuT8APArhBWgPLYlzeFnKL XytRenFMGps9LbX5C4YJLkMErz f6mqPOPiFWoqd7WhQXwYBOJZJJ 1IDH4kkAQ7XTgNKEBNO3gIhONr ZgCbgRV4FG14MJPnKHPjeEQvZA zhO169riSaw1rywMHsHEclFhng aDOpzxW2IBdMZFTPJOjRVbBcZL 6bIQbWS1GVZsI4NsXhBWE9AWda vXvqNzwoxgMylGZjVeMTdL5nwS rejC8qsZRpT8szhYPgXwNwHuZx VZLnHMYev2HfR0G3FOWbGTcsz6 rtQQGvXQclg9OkTMdVHVJEDS1O YR6tuEM9WIoKRNMQI3wLdVPyGs A7eSM4Gp32LWCyDENpmTGzGJft R825yUU2gGnnCxsbpEY5QIlqJp rlfI6drLEEVKXAVyzPEigjklEq KD5OCODGYX1ErYXtZlP0tQY8Pq 42SXGsFJNeeJXvWAcmW090YQJg AFilAIh4npXmREcgrfvyHTGwVz VvJT9lXMYeJHOjhO5lQIMemvSX hRNksYg3HFhnzd28CUV5u2wwqA RlTRlxMkyzeUAwhkC8CDcZHYJN EGlBPyWlMY7dFFsAH3BFWQoAIx jbMEIuRLwmiWS0g5vjoRWwl0d9 YIzzOJJ6eZdtlRv8KGCeKMqqy7 raSRXzPPbss4LzWPfQZVYZIG7Z UH1xgEN4NBxPTXODCTxeOWKfFP yabWW1d8ysvERbz9w5VSsyKNV2 zQmluBDsygxnwYRykAuzPQ0lHK pbccTqALVpSYG3eKOoHTGxPTxo RUTmPWfrd9VgKOhqvKmcOTXnRv NuYHzxCGZpY88ni6HNp1Jft2us sSveb2FrvSDlLO0rgCHnNB4Di8 tbWJObyWRnSWG3SZdxl7syTUir SAS8VUQnZfLbUJKmCM3TPmMyHU W5Mur8CfPtPfQ4MGl5CUBVSlNx PtYqFxS0OmssUooqFJv8RVm1EZ kRQpGoRyliVXL0NrH4SRS5KKU2 JFfkzULmYMxms5XyIfUrAIAdME wthzV5VSZytmWhp9ZvAQXcQNYa R6fiZpObBZBCJkrzPUYVMfHVWN 1RUVGTY3XWJKHvADhmPUBXUY3K QVJZIEZJTkUgTkVFRExFIEFTUE zTXWAEK73fQMFaLBGkEmJrcTNf SY1DDSTprsVrYGsccUpmeY6vsD OnK0bcmTQjHnBbWrDqZilyoJxc TmVzdERvYzEgDQpcbHRycGFyXH NfEoXyHSIfN8akBwKuQS2ELADm NhCmUkEgIKi4INUrZTGguVjiRF Paj9DjH4T8GBWuZKtti6snPNIc UIaex6BuWFeCALLENX6DBD6zgD N6FKdKJGEYH4iKcWSoRfBtgMO4 LS55IZLnALBzgSWpDAvfU761uu Amf9tboFDfNReaHsjhbTKjzdA7 ZXuYYTEDRMnGAqMoGD2eJLqJR8 AEZwY8YfFrJLM2GTdwkDbrRmxb usZgbKLsIxIGdY1aoKgyoU8rlR ToK5jbcOYrWgFoQaYkVEGdUHPe q6BxM3E6MDWsZKbyq4qqFYQmPI hbh1UnNMcQVTUWDR1SOH6euKB2 AKtJNGVPG1cGdVWxRsB9xYH3Kl 89WPIcKUSlaNPrKXnnN691lTK6 nYjvJrolsUS6QLytOpbafV1ugA EWFWVFFtcEUgmizxZtXV8WFFEF DQ2FvMWsJmZ0xLF1Wh37XRMmFA SbqGVtTPplL542QEMjMCbtECs4 cmNoXGxhbmcwXGZzMjAgIGZsdW xwWOnvct79PSJ3j4zpwFKyYQif ShuhtEOjgdK9DZdKNMRXONwSTv OgAL1sDIdVH0LRZCmGZuicMPWa XIfwwHV9x0gzrQDaq3r3ZTzgQE M9mQiqiVk5DDJzLMtvj0gvONWl XEtjb9VxWMeEDNHMDD7XAS3meA J9SXiDGJCPLNzqBBYhXZxepHX8 d1xpiFUug3c4ZTooGKH9cWyemH NkustjxVAnvUneNV6eKZqnqrMy XEXbIVD5zWTfKBUseP6xY0a2m6 x8tDJem263IQuzHEThCLuzWZJq KRdrpVDfVEjzzGMwIXWpd2VjTV lagFxgOFEmUbNoJThoZDMgJ90h r6TRv2Dzu3lwgPcmm7YhxYXfSH 2mbHHqVW3Yz9dkDXKmrPNpBGS8 RGmkm8ptWAztEEZ1CSVsXzQcUC AwCI2LSjZnVOR4Hrb6RxOfCoH3 XIy8OYGDYuHqGhPlIaP3DjkhPZ XqLYq0APo5TWbZEwQrEfqtCXD0 MRg9ZRV1DLC7GLcvsFFrZOjco5 FrOxHcAJZsAGsaurM4WDCvfiDu s3TyAZShMITtC5khGdCfQWSFHu lyLFPGSqFLXH5GYIGTT1COTXXx LUKJFOaZR44QLheaHoeCKXAXWB FJGTJlTZPOLOJHHNgWHl1vDhYf ZnMyMlxwYXIgDQpccGFyZCANCl xphACeyysrvQMgxVfvNF8hRVvg ryOdCSMzaVECGYM8SS1rLPJYQk vohDCyUOZxf7YkQAgkuNtyYGQd MzAgDQpcZnMyMCBSZWNlaXZlZC AzNSBtbCBccHJvdGVjdHtcZmll gWQ9YYidJpvjoW7fxPRHMVLBNu eGBuleebQfXO2MJHOXOxHNJW99 NuJaTUW8HDnsaBlaWltlemYkzN ZjWhFOfC6iwZ0fl0mtsPNrBZgd RtheuJEtraP2RMwINZVTCCwBFw MuKH5uBZjOM2KBAyL1SvFpWQP7 MXwxfXtcZmxkcnNsdCBcJzFDfX 0unLwcqJ4srSYaI7jiyQAaSvKd AoMgZFAfBZCps4SkV4K8OPPgAQ fio3qzCSQpMAmfq5AdGPqSODNO TF3TRS0yfJG6TBfXUWAVF3hZsP NhXnK3tNK3Gz55WGHrYEMxjKXv VIngV584I1xmAYC6PRShJSzow7 reFWJaRJmiy4WoJQcGSTYAEU0V NS5fnTG8NQrEXNHSNYscLKFhVY yhwUK5f2qakCYza0e3VQqjAAF0 nAmsfAFkzfewsQUjkNtiTZ2oFJ xmczIwICBmbHVpZCBccHJvdGVj qWuuPhceqFU3FCvaCwvpmG3euS XDFATQIycIPycuduSdFG0LNDLI YyQSUY93IzGbOQO9C8uniMvvAv iohbAgoECwVmUZnQ57jYGbp8vh gXPiDAdsBqngaGVbcdV5FMoGHF NIIVzPZmJbEW3yLRjBE1RGPqQ4 NnThCOA3Q1qpaDiuJdegdsTdsO WbUzWAbV8wqNgbhN3wbOVmN6vz bGFuZzBcZnMyMCAgcGFydGljbG PzMKjnQYW6pB4sjRFkY84czQGh ixMpGdNuhBKbEQ0NNEDvagBclJ JfqIDgOPEpYpXzYDUdE8qdBMGj NN3OCBMmzQCAUVK2SI9tNGgeJO OyH3FbT9EbvmD0PWAtvkNOHlfq QljahKocz6UtmOSzMQLjACtlqX QgNTEwMDIgXFxkYiBPVlIgIiAy BCH5HJXlVAGgTLb9PLbdS1DYNX CmWQGdREx9Dnd8GbW6NZw0AREM Yd4eHIC7OVT1ZRPgVBL9QQIkVQ BcXHQgMiBcXHNzIDMgXFxmbCBc UD8zpLtyILXcVMDlJDG9HROydU ZQl5PnSAQpTMmmAoAhXY9yDTgS LQcaLn7OVDT2DQJKSQ6PQbZVOX HSSN6MGG1PTGMGVRRIG7ARBkPJ PS4ENwqeWvbfgrJrTICkatTJXp rtAEXqQE6WNUIwLUzfWIv1wcQs PKtajlllZKGuBfMrBMSkO51ou4 TPl2DbOG3NYMf3mpEbyluzMuNu UFAweEYLc2CaQEDNXwihqkMmUH AwE0DjesDnMUS4RI1nFYpmzc84 MIP9s0mvcYSoKGpeJaivjCMlxp D3RUmEOVNXXBcAPfRxKB8kZUmP B1YWAQiYUskzVWJvB0zzeXY2l0 mgwBWaj9q7YFqrROJ4iOOdSJmu TwjfrLK2ZQcoHzosbS6xoDOQLC UGKiaPNadtduPqXU6QPNAMLI4R lIMoNnZkyBT1PK97CZQyJMFkhG KdVQykB425WKYyNJtlWUy6miYi TYcztcwmLAUiUoWnWUqndo36KP R2f6gzrINoUUzrIqzvuXHpbwP5 KDmHIEOVGMhEZkAtOU4hSGhYF7 MQJHoSQiigGEYyHUmpfSH9b1zr hVVoe5d2HVwcSJY2hUBlUDZxd8 vdbGBsNSfvYgptiLKmmrN0MEuM JYFGXTsXHyUjMU8wOYzZI1AHZp S7ObCwKGP4FxiwbGdeNolnyiCj bKUjLzQXvP1dgZmhvI6cqKFmW5 ytfTBjNpLcMdYzXHNhNpn2pQCa ALOzn7IpD8F1FFLuHUime7ptHW BgJCjfl8LrQUrOGFBVUZ8RRF3g eAW3NFxWEBVCS1dMfKGdXlU8rA R9P917ZCJxNFPdwFKfFCjhM037 d2t9qOwpDatilZL5YEgnFbpnbY 9jsBEQCVUFCepRCdmubfXfDY0L NPJSOK8VtFMjQsB4bAO0A942WS MzAXAiqLGlIUgsX577KQJkNPvn IRg0pqKrRUrgorniWBToUiVoSL VmfdUmE9kutaHoyaAQmYQihKe0 AHVvrsLhgJ2oqv9gAXHednEUGy ttBOPeSRs5vbCwohhyROLdCZAe bTIVj9ZnOSJNIphfvVeyYaJatQ JkHoH2DDRydLNcZPI8KT3zsNhh BIWkH7ZoG8IfypA4ZRSgdnVKVj zgXKDlAL6MNKViIwQgPMg0 [facility] Work Phone: Pathology report intraoperative observation Doc (Spec) a2nqmDJvBNMwlXOCMYMoOLAeJX 1grYdnjOh5iHyyVYFfioJ9qJGz SFoje4wwHJS9r9ulhuJMQlqnIG OeLtpaQCKxmcpnOfR4BUvmCNEj dbvhYKd5NCidNPMhrCJ9MKJgnT GrS2KcDATtCO2jmhz6OZJ1QNrw RTFtBjO9HRPvOOl4MKMhxvC7Ak qjNVz1QZLbYODkyISth2X7GIxa h8xuq7XvXRBrAUa6nW0Tc4vuDm xsL9hqarJxmHBgBkT2wWBxRDIq E24oCWDYG669DJg1UANqzH3tyQ NyF7gkEJOtHSvzFTEjXUwttPAt IHe0UAckv8VbzAFiIVu4MYemAS ErK2MqO7FfEJbrYoKeCTlgRPRd VCXzLAamVVFoZ0HESYIwJas9BG umHkBjNNs5JZt4CNSQEJF6UHjh BJQ9JNn7FHf5DTixwtgoOHy4HO WhDDmmhOYsLT0ptQckXpkkaOht x6FbdHYoYJZlRFyjmBGtVKJqOO XhZIakAaLOZoUmAuYiVZN8TRQo XISvBIb1LJjkU7ASGHNlTMWhSI j2SWm4LnU5LHl4NURTNe0dVYO6 ZFA8LAC7ROJ2TKPiMCPgJOIaXa NjBRMxCWErLSglrXTgSJ2yqSav MCWpEH2WDAAxJZrgNZtpvflxVW FbNHDeUaIsIU8gAAzSYEorBc9E OXP0FPSpZVPKSY5WDXHHDMOIFu KqZxFNCMzLQGUKJKuIVHTDL53w YGz4pcHnWZElIUItAdEfdXUlFS 4BMCOhzrBmSTbsaGybqH2kzJNg M8ervBYsEmGtMvRsZpfbsQshZp HxlHNvFuLvPSlbgLBxoFMlGW5C ZFJbRPThYcFuCpAljAQmR57bt7 u6NTUClbStaRZ4yC3xZVClNBSu SgLolDr6JrdvCKDyTFnYHRZbMI N1UVdfqh25AKF5d8ryfNZqWDfm QdijwFPwdfR1AFeWKVZBXGsUHf WkYF1oJZxPV6IQHPyKApviTKS8 WUmxsCG2o9snpRApb8x1JDdmRP S9dMwafj31RFQ2KLcsbgZ6CJKu aWNTTFAwIFxsdHJjaFxmczIwe1 hsoUAgHUjwKaexyISlqfS8HIkU AHIJGHyGWuMtCD8lWUbEICLYMW dJTnwyfXtcZmxkcnNsdCBcJzFD xF2Zm6EpfVu7IWEhc4ZerMHpoE azAP76BXFzsQduKWRfRLEkpfGd u19hr35euUxfW0XblPGxPHGphI 1jiBKsk6czrYQlSDjkBfeaeSTy gbM4IVzWWJMUHVxCGtTlHR2nIO hIWMCTTiJ8Je49RTOsDTXwsUMo TXjwS594QSRpFZfkBEo3zzEsCY Mpk4XgP4GvaHShEdXyYkQsYvKb RWavcv85SKS4HBeowiG9SHNltI ZQZQRvEInsiLBbzNizme19OXX7 BNAeUvS4URQvAQqql0xjEEImAV bgl7IxJNkIVGXING2NFJ6mjYN5 IEsHZYKGRFogVRX6ZDrykOM5c5 deaGCqg7o6POwqEWJ5mWzadFZo cngbkEDuqPeyFP8jRTvgOClxmn IwXHBhciANClxwYXIgDQpQYXRo h0nnC7sqsUdsODIul9JhF7K1RS OzSMsbe0qhAJUjGLaks6OeRYiI LKZCYX9KKU0fxKS5ZGoQRVOKJ0 fVxRT1Yjv0eYC9D845OPWcHRIz bOHjWGopU682FDLjQPwhV22tls u9DNNCSDQ2FKaqGewhhYE7YKte SgizsY2ocOJSQASURjpYNqghky DkWQ2VUDDKJL4QiIB3Qxr9jBQ9 N595GFFhQOFdvEXfHVhdD448DF ImKWnvQAs7qrMlEXfophrmLSPf XGZzMjAgXHRhYiBDYWxsZWQgRG T4UQ6KxN3zOtB0XaZ8SuEyXzAf YXQgMjoxMCBwbVxwYXIgDQpccG YfZV1FLALkkRBtbIcgkwQfWLVp p3WhJMCfGBG6XCdaCMPmZSqaG7 QlGGIirRIikdTzdKcxBJ7hrGs1 YWxzIENsZXZlbGFuZCBNZWRpY2 FsIENlbnRlclxwYXIgDQpEZXBh iqRhMK16EB5kFUBnxAxjhW0xsZ xwYXIgDQoxMTEwMCBFdWNsaWQg QXZlbnVlXHBhciANCkNsZXZlbG UuTDwdY4kmlyF2PSCrHb09DPRe XKOgafVZNjAle80jDtRhGwR6NU J3FSVdFTkmAuPXUCk1QPunYYFf CSc2FV4jDHDwYJSuMXWhJNQlis FEBwvyJGBsQWSgkNFEk8TeSINE TbqgdKyrHlIdxGCxDsN0NRTpuJ XlQJD1CL5zwXsaXQEkX5TwY4Qd luQ8EIOclwDUQvziRNZvOC7WOI MeJYlyYQaegtwqBZ5HzR== [facility] Work Phone: Pathology report relevant history Narrative p0gufHVdUCQmlJBdAJXyWudfdv GcLWKkiVJlO8DryrskYHyqBS8r DB0rdCgvzIHclJJyOTMcBhFjl9 rbg989qBIth0mhQCGXpjkxhEg2 sApsT82kz7J5VegtT66qmAPqMP K4ZYElMXDbeJZrRIEoLCY0NAZp uHHhN9iuBSTcLF4raeuqGTbpQS vhCJZiyET6FYPsbIGyH7JtPFSc SRrvMSUldyu8AtZoSg8jkOTadH cyMFxwYXJkXHBsYWluXGZzMjAg IDdqFIAzjVEuz4oqUIW3 [facility] Work Phone: [facility] Work Phone: Renal function 2000 panelon 03-29-2025 Albumin BCP dye [Mass/Vol] 3.0 g/dL Low 3.4 - 5.0 g/dL [facility] Anion gap [Moles/Vol] 10 mmol/L 10 - 2 0 mmol/L [facility] Calcium [Mass/Vol] 9.0 mg/dL 8.6 - 10. 6 mg/dL [facility] Chloride [Moles/Vol] 97 mmol/L Low 98 - 10 7 mmol/L [facility] CO2 [Moles/Vol] 33 mmol/L High 21 - 32 mmol/L [facility] Creatinine [Mass/Vol] 0.63 mg/dL 0.50 - 1.05 mg/dL [facility] eGFR - PINF [facility] Glucose [Mass/Vol] 212 mg/dL High 74 - 99 mg/dL [facility] Interpretation and review of laboratory results Abnormal [facility] Phosphate [Mass/Vol] 2.2 mg/dL Low 2.5 - 4 .9 mg/dL [facility] Potassium [Moles/Vol] 3.3 mmol/L Low 3.5 - 5.3 mmol/L [facility] Sodium [Moles/Vol] 137 mmol/L 136 - 145 mmol/L [facility] Urea nitrogen [Mass/Vol] 17 mg/dL 6 - 23 mg/dL [facility] Albumin BCP dye [Mass/Vol] 3.0 g/dL Low 3.4-5.0 [facility] Comment on above: Performed By: #### 2 4362-6 ####DERRICK Hall ([id number])[facility] ([facility])[address] [place] [address] Anion gap [Moles/Vol] 10 mmol/L Normal 10-20 [facility] Comment on above: Performed By: #### 2 4362-6 ####DERRICK Hall ([id number])[facility] ([facility])[address] [place] [address] Calcium [Mass/Vol] 9.0 mg/dL Normal 8.6-10.6 [facility] Comment on above: Performed By: #### 2 4362-6 ####DERRICK Hall ([id number])[facility] ([facility])[address] [place] [address] Chloride [Moles/Vol] 97 mmol/L Low 98-107 [facility] Comment on above: Performed By: #### 2 4362-6 ####DERRICK Hall ([id number])[facility] ([facility])[address] [place] [address] CO2 [Moles/Vol] 33 mmol/L High 21-[address] [facility] Comment on above: Performed By: #### 2 4362-6 ####DERRICK Hall ([id number])[facility] ([facility])[address] [place] [address] Creatinine [Mass/Vol] 0.63 mg/dL Normal 0.50-1.05 [facility] Comment on above: Performed By: #### 2 4362-6 ####DERRICK Hall ([id number])[facility] ([facility])[address] [place] [address] GFR/1.73 sq M.predicted MDRD (S/P/Bld) [Vol rate/Area] mL/min/{1.73_m2} Normal >60 [facility] Comment on above: Result Comment: Calc ulations of estimated GFR are performed using the 2020 CKD-EPI Study Refit equation without the race variable for the IDMS-Traceable creatinine methods.https://jasn.asnjournals.org/content/early/ N.5562001359 Performed By: #### 2 4362-6 ####DERRICK Hall ([id number])[facility] ([facility])[address] [place] [address] Glucose [Mass/Vol] 212 mg/dL High 74-99 [facility] Comment on above: Performed By: #### 2 4362-6 ####DERRICK Hall ([id number])[facility] ([facility])[address] [place] [address] Phosphate [Mass/Vol] 2.2 mg/dL Low 2.5-4.9 [facility] Comment on above: Performed By: #### 2 4362-6 ####DERRICK Hall ([id number])[facility] ([facility])[address] [place] [address] Potassium [Moles/Vol] 3.3 mmol/L Low 3.5-5.3 [facility] Comment on above: Performed By: #### 2 4362-6 ####DERRICK Hall ([id number])[facility] ([facility])[address] [place] [address] Sodium [Moles/Vol] 137 mmol/L Normal 136-145 [facility] Comment on above: Performed By: #### 2 4362-6 ####DERRICK Hall ([id number])[facility] ([facility])[address] [place] [address] Urea nitrogen [Mass/Vol] 17 mg/dL Normal 6-23 [facility] Comment on above: Performed By: #### 2 4362-6 ####DERRICK Hall ([id number])[facility] ([facility])[address] [place] [address] Albumin BCP dye [Mass/Vol] 3.0 g/dL Low 3.4 - 5.0 g/dL [facility] Anion gap [Moles/Vol] 16 mmol/L 10 - 2 0 mmol/L [facility] Calcium [Mass/Vol] 9.1 mg/dL 8.6 - 10. 6 mg/dL [facility] Chloride [Moles/Vol] 97 mmol/L Low 98 - 10 7 mmol/L [facility] CO2 [Moles/Vol] 29 mmol/L 21 - 32 mmol/L [facility] Creatinine [Mass/Vol] 0.50 mg/dL 0.50 - 1.05 mg/dL [facility] eGFR - PINF [facility] Glucose [Mass/Vol] 83 mg/dL 74 - 99 mg/dL [facility] Interpretation and review of laboratory results Abnormal [facility] Phosphate [Mass/Vol] 2.8 mg/dL 2.5 - 4 .9 mg/dL [facility] Potassium [Moles/Vol] 3.6 mmol/L 3.5 - 5.3 mmol/L [facility] Sodium [Moles/Vol] 138 mmol/L 136 - 145 mmol/L [facility] Urea nitrogen [Mass/Vol] 17 mg/dL 6 - 23 mg/dL [facility] Albumin BCP dye [Mass/Vol] 3.0 g/dL Low 3.4-5.0 [facility] Comment on above: Performed By: #### 2 4362-6 ####DERRICK Hall ([id number])[facility] ([facility])[address] [place] [address] Anion gap [Moles/Vol] 16 mmol/L Normal 10-20 [facility] Comment on above: Performed By: #### 2 4362-6 ####DERRICK Hall ([id number])[facility] ([facility])[id number] [place] [address] Calcium [Mass/Vol] 9.1 mg/dL Normal 8.6-10.6 [facility] Comment on above: Performed By: #### 2 4362-6 ####DERRICK Hall ([id number])[facility] ([facility])[address] [place] [address] Chloride [Moles/Vol] 97 mmol/L Low 98-107 [facility] Comment on above: Performed By: #### 2 4362-6 ####DERRICK Hall ([id number])[facility] ([facility])[address] [place] [address] CO2 [Moles/Vol] 29 mmol/L Normal 21-[address] [facility] Comment on above: Performed By: #### 2 4362-6 ####DERRICK Hall ([id number])[facility] ([facility])[address] [place] [address] Creatinine [Mass/Vol] 0.50 mg/dL Normal 0.50-1.05 [facility] Comment on above: Performed By: #### 2 4362-6 ####DERRICK Hall ([id number])[facility] ([facility])[address] [place] [address] GFR/1.73 sq M.predicted MDRD (S/P/Bld) [Vol rate/Area] mL/min/{1.73_m2} Normal >60 [facility] Comment on above: Result Comment: Calc ulations of estimated GFR are performed using the 2020 CKD-EPI Study Refit equation without the race variable for the IDMS-Traceable creatinine methods.https://jasn.asnjournals.org/content/early// N.4739817818 Performed By: #### 2 4362-6 ####DERRICK Hall ([id number])[facility] ([facility])[address] [place] [address] Glucose [Mass/Vol] 83 mg/dL Normal 74-99 [facility] Comment on above: Performed By: #### 2 4362-6 ####DERRICK Hall ([id number])[facility] ([facility])[address] [place] [address] Phosphate [Mass/Vol] 2.8 mg/dL Normal 2.5-4.9 [facility] Comment on above: Performed By: #### 2 4362-6 ####DERRICK Hall ([id number])[facility] ([facility])[address] [place] [address] Potassium [Moles/Vol] 3.6 mmol/L Normal 3.5-5.3 [facility] Comment on above: Performed By: #### 2 4362-6 ####DERRICK Hall ([id number])[facility] ([facility])[address] [place] [address] Sodium [Moles/Vol] 138 mmol/L Normal 136-145 [facility] Comment on above: Performed By: #### 2 4362-6 ####DERRICK Hall ([id number])[facility] ([facility])[address] [place] [address] Urea nitrogen [Mass/Vol] 17 mg/dL Normal 6-23 [facility] Comment on above: Performed By: #### 2 4362-6 ####DERRICK Hall ([id number])[facility] ([facility])[address] [place] [address] Surgical pathology studyOrde red By: Geovanna Mcnair on 03-29-2025 Disclaimer n3gxqRVwSJDevHCcBoNj MDAwXG Niy6brFERpxESpZbVmOiNpMoOg TpbtzYPzTHOyDnYvq2smf465mV Dor8lcAIVoLjI9pRAnORMxlSvy cgh5yKgtOnCoQGQbs4maugUhTw PhLJZhQCIcXKSqiYqspbf6aCnj AeSvUZTveYmmKFBcPDw4uD17FB LliX1qwCElUZxgddTeInP6PVuq RYDbXaG4ZBZafXKnNYOtA8uxMO HdEIpuEJLvGEmeoNBdVLC2eFzx j1U0gALsrMRcoFkwTrLuBrJuRg FIi2ZvIXu6gWpgX5HyFOZnPiG4 zFHmDBIoWXvdFNBaLBHdtrQ5uS ceszXmy82zaQQlEMOxDSLqOlJr U55oer6uxE99bV44PQorxaE0mK Hyf9Zkh76pe292hJ2puCOpVPM4 WFZlXENgwAQfTTPoRUO7AUKbbQ AeR4emQIDvPR0jdwenVLdyZRpv UHUqvHU0MTIfzTIqN8LqGQAtQY bdMMGujel8LmCiHz2uqSLfkIie KRnck4uuo5zwgIGaQjd7PXIfJx FhKkfjWDjls4Off4qfIJEemr5t MXI8iPIwuCuof6J9aCMaHOEfaW MzegInAHUtSeN7WGflMN0luo16 YQKeFTF4yr4oeHUdzPmompOyhH WfAInkG5YiIXRoa259UBClY8Oy OQQlq1M8mrZkSzYpIGOnbAY7tf T9BLZeTJb5lHJtjoR1hjVvgFHp X9dsmJ8wXKXoMR6vgupty5znUF bnRRtuAZEmcUC2kwF4JTMpeBDi S7YagU0lUTLaSOfnGENeqgn4Kz EsVr0sdHOjhKucEVqdLafsREvc XHBnbmNvbnRccGduZGVjXHBsYW luXHBsYWluXGYwXGZzMjRccGFy NDzna7IlarMgeAphOGIpKJI1Aq W0MFS6PFQ7RWp5eSXyXqPgqEvx AZuiUPQ5CcYwFAg3fWIaKaAuoT r2KWSmHOT2NBr2NGq6bVS6EXIq hXo9KiIiVUT6FovqNBj7zRy2ON DxhDv1OsBgTZY6JYKbTMEcvIcx hPyifH1aJuUdAkVvJfgmGO6xZF BnO1xbkQMgIHBiYHSrE0rwKxEa zL2hpLleCZqgQaXhBmLzLyCHmc Smc5QdrZ0rPMIbGrF7lESxlgKw K2GuqAZtsTTwBIX2mmYeMWDqe7 XgSOMbz1W9chZrxoI3wNtyJIYk WSHlyVUuCE0HTPDbRZJvFFRath OfeF5oRQCwm85gd17zcjAiNEDv teXgECJeYUGekX8xXtVtZR8gcY i3GSKxzOQsmCKkQoKaXCCzUG87 ibMpHCAYE0BzLdUgNORXP9MpeP L7KDLea3JcMiOqdwCdyXEcmhJq PS6iSQLjpQWtwdRaCZR4FOQcDR OIPeUlBKMfh6QoJC7fOCEauSmx YJCqsC2wg6CoJKSfw81uOYYVzA TpEHKmq6TsbGQab9KjHIMmVRRw eM9vEDFaXF9eREUeCUiqQWJgvi Ujpd8uesHeDMRlJPRyL5Vmigfd pHaszxFfYZQfjv7fxgJjWOJ5YX ExJLJJWCEhuyVuSN62SX8eQMBt jVqziG6npAXcrSVUjin1AYXseZ F2OFjwn0ZznRZiyfDFsRO4JNgi ugVvWMArxWWaaADMZM02VQVvIO AzUJTEMZPzLA5uknNae0RqoxAe xQckSDQ6qTwfBOSua0UdyZ0eJ2 7goWtjc4FdaJBnxhLeRMIkYWAv TjQAEBKxoncaou5qNDfqtuJ6OG U1LOcjRMDuSLKiDc2tQMBwgC1n I2VqNKY7yjCum4JzWyOJyJWzmM 37kIHgnf26UTRmJZCtS0FcGZKq TUPoYZlesmCpzSodDHDrs91fyM QwwiJko8WqyhRdTPElI0zsQAEs cRUudPPih8FsfF1weZXheoFfBA I6hXEpXFFobI7dPBXtoPzhBQHq eO6fH2CyVMdeOt5gFSDrumotCF 9wwx58VA7txePfDQ7ntqKjFE73 xnFaW1tVLDubBSVsaFVruTcreN DlJNGwDPNeotIycq1feZqjxWWh m78haWZ5fBB0GLDbfV9bP2LdAD utVx0dOYIngegklLMuuIefBx9v PMEhVANbu4JceNOuu9HqDAHhFN Bgn4NxWAKpl4b8lDOrtRSyw9Ai yXO1BTTcn8UgiTm5YGHfgyQtqh BwUEDxcjLbX07xxGSuoNDno2ad Q9ygh5PemI4tIBHpyRQsr8GrzK K6DZc4TsakLRQ6 [facility] Work Phone: Laboratory comment Darío (Report) x3qcdDVlXZQch5gwYVXglGSmEf EwMzNcZnRuYmpcdWMxIHtccnRm QBcbh7MgM6AgEtBgLOnaefBxUB OiFqdooaijTUArEZM8gmRiTAJp HUlfIWOqKQzkCj2pkPDslZfpNy CcLGQof0gxilBXEPsgMJSNGJm0 c9xnTGEsAoR7fMVqXQhuL2nkyt CsfXAyA1Uuh5WfZWe0kP03VGXy uL1ujWGiSVjdoyYxAcG2JWekXD YlCvI6ADUueNOuFULrO3frGHDo XFhrCMCoEVpwcZSaMHF4cVryc6 Y1vUAwcPTotHygVvDiInLfFaLB a9FjBPb2eNwmF9SoSLIbNrO6eE BfFNAfLPyjRIUwKEIkluQ9iV57 DBroqeA6kCUbm7Vkd41xr143dN 1rvHOmUJC9PAJpENLlrCOjCVUa KYG6IYIghBOmO4qfUkOubQCaQ3 LpAhXxjYXgQ3McQuMlnSPcZ5Xg QpAjuRTlEIQcoBL3ZUgxo212HI V1WrQdQV4hD6Nhn3H9aH5nzDUc OVInsUJeQeCrEBEbep8orMGnLG eqg8IhCNQ5fjO4uLIgoYZpOSQc RL86Wxlhd0EpEtakKPD0YRSuei Vvo1Mtq7nyLrCqdcJqY8jpY5Up YQTlFFXdCMTuFcXymjKje7Lkx1 EfbXQycOu1i0beCZHtGLXrmYos z9irMUE7ANFaC9F0nIIjk0rvYT jxAETnqPT5arY5URkcKMCtllN6 nuO9NQouQZKypLS3lqJ9QAiqDS TpKaK0bwK5QKgsFFFnUVE6UsBg FXZcs4FdskkzRiLjc3PslWUcHA quZ94br278TRUxppWyS8ofvDZp vgktmWXwvbpdAFiprcU3KIXxTF BsYWluXGYxXGZzMjBcbGFuZzEw MzNcaGljaFxmMVxkYmNoXGYxXG ptN4muWwNtAeToPUWWpGQ9yFIm r6raigF6cLRhNC6cOVUciLYrzd Jsp5O7HLL4zCBvlA7saXOlWPSc vCNcgqJdlg24vHJpsAP5HCPfMN MiwONsrN3dPWNyDARVqL4isFCG qzOjfnTxAQFfrNowtr9ReHNtoj 5ryMHpQ2ZtcDvpeEGyJSXySIZx tVtngJEsIHZaKWXymunsu6ScVT YosJKlM4SlNC9jTJHuov11 [facility] Work Phone: Pathology report Cancer Narrative [facility] Work Phone: Pathology report comments [Interpretation] Narrative l2znzTDiJQKrpTEmWIRgHml0wS Dgo7W0qfbfHQ0jpNsayJb2uEcu CWJjukY6tMNnAYeob2tgTZK4n0 mzbjmqBKYwGObfZt3iaURcySop BxRdQSApNSt9zI16QUPcgG3gpP YiZYl0EQXlhDZfedEtJaCyMJXs aWHttZI0ZXGqYD5fvcwyLHrnMX enUPWotkT0MKEguRElO9VxDWSq CZ5vadobCRJ7SBimPDGwEHO4Hr WrYLLwe2Wxcpw8QcYgmFHuXVeb G2htlIAyfcocXNTiUjPmGZFrGS SfJyDPMsCwYlicHL2vzJ4ckBum gI8jyRHrzWF8eqfyz9b7hYQIyc RlcnByZXRhdGlvbiwgcGVtYnJv yZg4cA7sTlrmEWHmGVkGCKCQZE RBKVxwYXJccGFyXHFsXGIwIEJs g0UhCVMgMMI4POQFKIflPEZtdC YiIYzxaVBfrPGfmUA1cV1hWyAW mCnvFTB2pWYhe0Bpp77ouXBsQX UeamQPwJ5fxnQKjd9xy9I7eO8j KBGwu4SmTFiDZJKkYoW6KYHmvL KnYMUzgeujENJiDD09TE3yDZAw dXNlOlxwYXIgUEQtTDEgMjJDMy HngNUUAEFex8g0oYLNdvVyxfSo ZMKatTwrdaUfxeMmTMN3HMwqoN G3pCWgLDpwcJEgw0ylh8AtA4mp bWljYWwgYXNzYXkgdXNpbmcgTW 5vx8Tda40kqMVUb1LaJCDGobEw AGAULOebFIHUhD3yPZEeMfRvDP gupBUgFNVxJPTmgjY3b8PyfC2u dGhlIGRldGVjdGlvbiBvZiBQRC 4MKTKegz57ZLhyJKksJBGelj9x bGluLWZpeGVkLCBwYXJhZmZpbi 3sjYYhDRVxLPTaAxALTCcxhm8t LXNtYWxsIGNlbGwgbHVuZyBjYW 0bUDYdZC0FC8iOWJN2oHZdmUUy jFAyphsnlJdtFT3hoSb9mQX7TB RldGVjdGlvbiBvbiBhIFZlbnRh ilXjZnSjO2pOGDLpUATpgAPkLk IPnHKmg6SuZ6gzKG4mp8BskQr1 ySGnGRFgijX0MLZ0rB8bGBOnu7 WuJLKmz459XUvlQSX8TOxoZEF0 VIMrQKF7jAGjaBMbfZPso2AzC1 HthVRwoU4mYwBbI03wy7vgITXb EAUnDTMpbIR0IUYqd1ZmENIsfN WvbCoqaf3yBPeubjXty4OuoUPu veCrmyOaY5Y6KWRzGTKaQF7dYV ooCDvvJKnnAD03aRN6lE9rWA1A G9oVOFLxpYjzisYzDOMdopR0tx IdyH5pvvObw7z2iYNoUY5kzo2x gSp8zRPhRTlESImPIyMMMIjsUR ArvagfKZRtUUA3vN0ok9eaV6d3 TQCfhzPJPZ1GWNAafi00THswLG B0kEUqb1Zmc05xxGMcVLC5EKHu oY6mYCLfrOO7b7sfPnUPaH2lww VAqu3di7C8cT6sKWQbl5ShFBeW OXNyVCM6jLoscWNmuvL0iZVkuF BvS4PljPOhEZOoPiA4fAFauWKk pNVzd9RzO9JwfINsu4ygd3epFk SlYJO2bWGyQK5bPMEqbOQpHQNs QO8blPXeLD7rZWX2LSpndJ6dBS S0UHVugYFblfNcdfZxwVfrCZoe BQOyARYtlTffuVAcsPHjDLU0bT 2oWT2iPCWnxdD0HPkdlvBgtVyo uuSfnQOhyGOeTBKtUA22SI1rTK dlZnZlIHBhdGllbnRzKSwgdGhl IHNwZWNpbWVuIGlzIGNvbnNpZG EuHQDpQNZlFXBqoD3wxECowvZj aWYgdGhlIFRQUyBpcyBlcXVhbC F2phIuytFczySpvFBsIYNoJK3i QIWsgKXuA3MiaD2zWS5ijTtaGE ZgqXVvdkkph6Vvo2Lip03fXFcs bmUgdGhlcmFweSwgdGhlIHNwZW NpbWVuIGlzIGNvbnNpZGVyZWQg hD2ksQVupwAtbEWyrFmxIVTIRa NuhjUssVXgyNR9edOiauKhtqXd mOQhNIEzKD1zFKAjPSSgNK86Zl xwYXJccGFyXGJcdWwgUmVmZXJl bmNlIFJhbmdlOlxwYXJcYjBcdW utZAnbO1phINonneGwj3bmbvE+ PTUwJSBUUFNccGFyIExvdyBFeH AaPQUqtB2nGNTrUOymZFIUM5yy DEMtVf8kDPnupvYxb4vhkqO1FC UgVFBTXHBhclxwYXIgVGhpcyBh e1FsuSGdpwP6DWoyTON7GDDuWL 1kMAUGMI0piYGad2FyKHTjs9Rf cQCuEfJmGL7uNQHoy9KgU1raCZ 2lXZ7ivCakCBKzmxRplVbsn9Jk JVGon2OlP1vwIC3haTliFUKdOZ Sph1RgxRIou2mqjGvrVWUtSToq hPVccNUdmCYpXSnceJfhQ1O1bR ovbbAeuvDdk1i4wVuhZDZkNQQe xLMnr3OmqRS9XPDswBfusIHqsQ Thl709TEi0ReKBwIMgvPFjVM2n HZTvuPUsAPOfZPeax62pGWDmWG opiQJmIIJzuDmyo2RygoVhZQJd ur29DARwVT6crfIumEOceITfNM VfWBFpbgKbv4BszcVjb11wBG6a JVEvBAsiFDFgX83nCV0cAO5fra Hzo5EafLifFXHsSKhvkoGzWEGt YHFphA1ooMDaHv8eeJGuc0OlsP Lns32sjKycbvUicBCwbN1xcxBO UBqbyPI7EPSdk739UUaiHXVjT7 8atA7nOF85dwGdz49odRArhvUq WTAtMWIrIIgjVz2tEWNebhvbHE V6PRtcyVOlJYYjn6ZtJIwTZDGq LrApUQMOE1JfiCP4UJMop3FfAl BfadIgsECdsuGmPF8cEXYtyMYv vfWcMBX3DDHxSPCBZkTjNSDph1 IjBZ3dLECqtSzoBQVfvF7ja8Ic HSZpt07kWPIZmAWyUTRqd3FdhL EydCWbtZMsy7HlDANsYGJvtH9j RNPuNE8fLDDnGMfyZTQiykRwdo 8cqfHfDTImHOXpT4ZsivgkwYiq azCrZUNsog1kzbDrAEP2KPDiEI JKRRQsjhVmQQ18LO2zVYBtkCcr nO9qcBWDoV38ur8caII9v9XxYX 0ds6GedWYYZRYpMCAyNN1qhvUp s1b3mFIFy5GzvTOjqLWcG3miyl BfFK2vQW3qVMwfCAesH8EvaPBs SoKKdWNcNzCIXXPaRGHkaq78ZF XlcJRvjyKbrGmypxR5XJG2ZABa NWmyZTStjj11T5moeCVwoHRdj1 H3WZAAPKSoQKDwEKkjQEVoaCKy nMWpbISaiqI3y2LzBHBdigAfgP swcUXljZDgrIPxx9Hxox7nMMUt i5oieMnmQU3znQIgDSEwXMmkur HnFMRajfEikmFtn1JxL3P9dQ8m DDzfq3LdIb5cHDDdx9VdfiFhCm YNhDuqWMgiEj9hDXErbvsgjTGi O7QwiSoorDXeJIUaXPFrDMRnWL QSaOzvcFZqeYLZMWGartT6g8U9 USvbbKIrggBlQJ15EHAkGE2kjY OlbMQmXENJJVRdLLQyHIG9VKsg NummIIO5dkBcUSEyg6VqEJjgW5 tdH98snNgixYc8qSNbqZknsONx xWSgPDWcndA2r7J8VHVmt5Dljx ydVVTQlAKeGGYkDMvyM7Hdu9Qs AQlgwqKfvYHaEa9yeGQcSTrzuC qpLRDden0sqhgchBEbpR4duOCa wiXaCP9bJU6wQ1D7vLRaWGLpjg Tdc0geKNtttCZcLHH8YNpoYRNu TPNgcp9hqjjusZUcgD3wWGMbui 0= [facility] Work Phone: Pathology report final diagnosis Narrative f0coyPMpOTYtjCJsBXNxCpxupl AmDWWlaFXiA4ElkuquVDwuKP5h SS4hrDbqyTWjmAZpIWVxYiSoj7 jsv855jUAjs9xsUSEGctowvJu8 qIyvC14ou1X0SbfzP2wwVEQxOX fbKUBjRVmkeJAxJIh8SJLcnYCa ghOhZsRiRFCsnIRnjUU2QVNwON 6slxxdTYobNOhcGAYkrwO4TNDe gBZsI9UwGYZlTQ9sutzjVNU8LT rhDQOjATR7OvXzDZSzz4Yavaf7 DtZuoUo4a7xvFNFmFOCwxNmcl9 sdBOA3PVPgdLCrV8ntxD4eUSUb YY3mxhwap8jhKBtoFQhpLRBaqU E2veW0RXCvqQZxO9ZrwP4kJBTd QTMiusRjeFecrS4kSpPzFbhbPd KgkYEjNDZtENBEAZ5SSNCIB5IJ DDDCUFrPZ14GIwdxXLUvHINKG2 FMPZhruCSyGGCyTARpgITtMb7d CYTpCSphMJDniZxnC2YfQ5aoi4 6cQUHrKEUxmhXuHHIxg6SzkyMo vg2qNN9gMWSfXFYer8XnRnisKS TjNA2zZMSeUWCJLQWjR72qC5Nk fxTlvTAfwMLwaY5czZHwjKYrcM 8lpgNoDcL3KMFrHPMwtDPlDSV9 VPevUZOafmxfOZMmMn42XUdkHM Amc3BiV9OaiNFjYVSfMMAcn9n3 eFGvIILljfXPKTWkZKDjMDx4Mw MpIGFuZCBDSzcsIHdoaWxlIHRo JPeoKKZlTZ0iB1V4zASiCQUpio RmNLWoKNOfVOPlkG8wnN8uqzWj hVJjj6W7YARzZNTwCq87OGBdxO Yrjt9zoTMwPTkkAbTjRAMeWNZc bQ9haG7bp1EdpM6ukyHssTr8ld ReesWguqIjc5W4ISZlBcOyl0ey UPafJIQzkEEdSEL6gH5oPWAam6 NrOiAgQTFccGFyIFByZWxpbWlu UKI0LTRvp9Loo81trmNlq8NdR5 IaH4xbEM6xYCEqnVWcB1rmId4p JQGnJ8mjwRGymFQLCWQ3wE5dZu AgQWRlcXVhdGVccGFyIFZpYWJs WQW4aT8oigEfeQFxBQc9ZNCwQL ruYHCuvNFeJAJ7DHUuYOTczgJ7 jZSvimB6OPZdRjIDHSmlC5KsxP FuLlxwYXJccGFyfQ== [facility] Work Phone: Pathology report gross observation Narrative v8hotBDaXAKpiIBTFAZzZRYhAL 7mjWqlxFr9dCjuWDBxmaP1pUKv MBzsg4lpAZH5v0czddMLVweyIX TtRJupMTRixdpiWmM6XEuhJNUl tqlxFWq9BNtrLEYobOO5JZUruD ZtR4EwEOJvXS8ishi1VZG9YOda MRInFkZ3AOJuKCw6VSJnzkX9Qa akDMv1OQThXHDscHPen9C4SMvf e3zmc2GfG4Mlq8FzLAn1zS5Wg6 afVmhgO3dzvpUxzKFvNeR6pQQw KOXbvSHlF986KJihe8TydOLfSM i2SCjoQPWzB4QgK3EsLSujDgXa ALkzLLNsPOHsHWqzBFKmD3ZLGF WtBao6TVr6JwZvSHg8XQe6SMVV YBX2OKmzXfSlNHg4LNd0TBkhvk ltJDf6JLMoPQmgpONaUY0nhQzl TlxkuWeev7GbqQIxWEUbIMmevT QgNTEwMDIgXFxkYiBPVlIgIiAy YPJ6Eii8BKWfMDh1MMfwP6CAZD FoNHZnIEi9NEMsIrI9SLx2ECIS Ty6qOPT8UnC2LpB9DIX4ERVgWY JeZH9aCXyigPLeQWjwm7BzNxJt HAReDSfgebR0RKHdvwHyYIepnX jnoJ1wiVLyKjTvPMPmR94ag2CL g7GlXN0HWWd6swRxtcMURqtadL UndXrhIucfyiFgZNUrH7VimvEk DVcvRZXwoc8mvVptQDNwMETrtW VkIHdpdGggdGhlIHBhdGllbnRc I2O0idVpRB9bVWIyHOSgj8JfkL QhxFSkcY4gHVFkPQ9eNOJ8IbJd aC4sQh8bkIJdgO6nZUp5tLUsYU 7qGQBrnCNjbP1nFED6KeutCJOk OM29xFFdiWwaCJ2ggjP7PDSfwz 40oo52XL0lCMPlQaNsfRxgi3St UOWwKPawOE57tcRaA0vmRQddeD mhFfO2jyYfAvVztCGdGiWbmIJv HhYxD33iVAXpEDLalTNfpL5vmt DebpSrnRYgkSU0FQLypZ3uzG34 seEjkvWreeMfT6Erh8I0wILhAH WjrtDVYcueNZRjJPRjdZBJd9Wc JWYOJgVZIr4IJCTsuEBSHUT2TC 4jIKstWKOjX9TsF1CohmF8s3ys xNzmo6TisRPxIT0lvFHlZP5ZBX KvbaLxTDojoRuhqS5beOHfQfVr DQp9 [facility] Work Phone: [facility] Work Phone: CBC W Auto Differential pane l (Bld)on 03-28-2025 Basophils (Bld) [#/Vol] 0.03 10*3/uL [facility] Basophils/100 WBC (Bld) 0.3 % 0.0 - 2.0 % [facility] Eosinophils (Bld) [#/Vol] 0.29 10*3/uL [facility] Eosinophils/100 WBC (Bld) 3.1 % 0.0 - 6.0 % [facility] Erythrocyte distribution width (RBC) [Ratio] 12.9 % 11.5 - 14.5 % [facility] Hematocrit (Bld) [Volume fraction] 39.6 % 36.0 - 46.0 % [facility] Hemoglobin (Bld) [Mass/Vol] 13.0 g/dL 12.0 - 16.0 g/dL [facility] Immature granulocytes (Bld) [#/Vol] 0.05 10*3/uL [facility] Immature granulocytes/100 WBC (Bld) 0.5 % 0.0 - 0.9 % [facility] Interpretation and review of laboratory results Abnormal [facility] Lymphocytes (Bld) [#/Vol] 1.07 10*3/uL Low [facility] Lymphocytes/100 WBC (Bld) 11.3 % 13.0 - 44.0 % [facility] MCH (RBC) [Entitic mass] 31.5 pg 26.0 - 34.0 pg [facility] MCHC (RBC) [Mass/Vol] 32.8 g/dL 32.0 - 36.0 g/dL [facility] MCV (RBC) [Entitic vol] 96 fL 80 - 100 fL [facility] Monocytes (Bld) [#/Vol] 0.82 10*3/uL [facility] Monocytes/100 WBC (Bld) 8.6 % 2.0 - 10.0 % [facility] Neutrophils (Bld) [#/Vol] 7.22 10*3/uL [facility] Neutrophils/100 WBC (Bld) 76.2 % 40.0 - 80.0 % [facility] Nucleated RBC/100 WBC (Bld) [Ratio] 0.0 % [facility] Platelets (Bld) [#/Vol] 200 10*3/uL [facility] RBC (Bld) [#/Vol] 4.13 10*6/uL [facility] WBC (Bld) [#/Vol] 9.5 10*3/uL [facility] Basophils (Bld) [#/Vol] 0.03 x10*3/uL Normal 0.00-0.10 [facility] Comment on above: Performed By: #### 5 7021-8 ####DERRICK Hall ([id number])[facility] ([facility])[address] [place] [address] Basophils/100 WBC (Bld) 0.3 % Normal 0.0-2.0 [facility] Comment on above: Performed By: #### 5 7021-8 ####DERRICK Hall ([id number])[facility] ([facility])[address] [place] [address] Eosinophils (Bld) [#/Vol] 0.29 x10*3/uL Normal 0.00-0.70 [facility] Comment on above: Performed By: #### 5 7021-8 ####DERRICK Hall ([id number])[facility] ([facility])[address] [place] [address] Eosinophils/100 WBC (Bld) 3.1 % Normal 0.0-6.0 [facility] Comment on above: Performed By: #### 5 7021-8 ####DERRICK Hall ([id number])[facility] ([facility])[id number] [place] [address] Erythrocyte distribution width (RBC) [Ratio] 12.9 % Normal 11.5-14.5 [facility] Comment on above: Performed By: #### 5 7021-8 ####DERRICK Hall ([id number])[facility] ([facility])[id number] [place] [address] Hematocrit (Bld) [Volume fraction] 39.6 % Normal 36.0-46.0 [facility] Comment on above: Performed By: #### 5 7021-8 ####DERRICK Hall ([id number])[facility] ([facility])[address] [place] [address] Hemoglobin (Bld) [Mass/Vol] 13.0 g/dL Normal 12.0-16.0 [facility] Comment on above: Performed By: #### 5 7021-8 ####DERRICK Hall ([id number])[facility] ([facility])[address] [place] [address] Immature granulocytes (Bld) [#/Vol] 0.05 x10*3/uL Normal 0.00-0.70 [facility] Comment on above: Performed By: #### 5 7021-8 ####DERRICK Hall ([id number])[facility] ([facility])[address] [place] [address] Immature granulocytes/100 WBC (Bld) 0.5 % Normal 0.0-0.9 [facility] Comment on above: Result Comment: Arlen ture Granulocyte Count (IG) includes promyelocytes, myelocytes and metamyelocytes but does not include bands. Percent differential counts (%) should be interpreted in the context of the absolute cell counts (cells/UL). Performed By: #### 5 7021-8 ####DERRICK Hall ([id number])[facility] ([facility])[id number] [place] [address] Lymphocytes (Bld) [#/Vol] 1.07 x10*3/uL Low 1.20-4.80 [facility] Comment on above: Performed By: #### 5 7021-8 ####DERRICK Hall ([id number])[facility] ([facility])[address] [place] [address] Lymphocytes/100 WBC (Bld) 11.3 % Normal 13.0-44.0 [facility] Comment on above: Performed By: #### 5 7021-8 ####DERRICK Hall ([id number])[facility] ([facility])[address] [place] [address] MCH (RBC) [Entitic mass] 31.5 pg Normal 26.0-34.0 [facility] Comment on above: Performed By: #### 5 7021-8 ####DERRICK Hall ([id number])[facility] ([facility])[address] [place] [address] MCHC (RBC) [Mass/Vol] 32.8 g/dL Normal 32.0-36.0 [facility] Comment on above: Performed By: #### 5 7021-8 ####DERRICK Hall ([id number])[facility] ([facility])[address] [place] [address] MCV (RBC) [Entitic vol] 96 fL Normal 80-100 [facility] Comment on above: Performed By: #### 5 7021-8 ####DERRICK Hall ([id number])[facility] ([facility])[address] [place] [address] Monocytes (Bld) [#/Vol] 0.82 x10*3/uL Normal 0.10-1.00 [facility] Comment on above: Performed By: #### 5 7021-8 ####DERRICK Hall ([id number])[facility] ([facility])[address] [place] [address] Monocytes/100 WBC (Bld) 8.6 % Normal 2.0-10.0 [facility] Comment on above: Performed By: #### 5 7021-8 ####DERRICK Hall ([id number])[facility] ([facility])[address] [place] [address] Neutrophils (Bld) [#/Vol] 7.22 x10*3/uL Normal 1.20-7.70 [facility] Comment on above: Result Comment: Perc ent differential counts (%) should be interpreted in the context of the absolute cell counts (cells/uL). Performed By: #### 5 7021-8 ####DERRICK Hall ([id number])[facility] ([facility])[address] [place] [address] Neutrophils/100 WBC (Bld) 76.2 % Normal 40.0-80.0 [facility] Comment on above: Performed By: #### 5 7021-8 ####DERRICK Hall ([id number])[facility] ([facility])[address] [place] [address] Nucleated RBC/100 WBC (Bld) [Ratio] 0.0 /100 WBCs Normal 0.0-0.0 [facility] Comment on above: Performed By: #### 5 7021-8 ####DERRICK Hall ([id number])[facility] ([facility])[address] [place] [address] Platelets (Bld) [#/Vol] 200 x10*3/uL Normal 150-450 [facility] Comment on above: Performed By: #### 5 7021-8 ####DERRICK Hall ([id number])[facility] ([facility])[address] [place] [address] RBC (Bld) [#/Vol] 4.13 x10*6/uL Normal 4.00-5.20 [facility] Comment on above: Performed By: #### 5 7021-8 ####DERRICK Hall ([id number])[facility] ([facility])[address] [place] [address] WBC (Bld) [#/Vol] 9.5 x10*3/uL Normal 4.4-11.3 [facility] Comment on above: Performed By: #### 5 7021-8 ####DERRICK Hall ([id number])[facility] ([facility])[address] [place] [address] CBC panel Auto (Bld)on 03-28 Erythrocyte distribution width (RBC) [Ratio] 12.8 % 11.5 - 14.5 % [facility] Hematocrit (Bld) [Volume fraction] 42.3 % 36.0 - 46.0 % [facility] Hemoglobin (Bld) [Mass/Vol] 13.0 g/dL 12.0 - 16.0 g/dL [facility] Interpretation and review of laboratory results Abnormal [facility] MCH (RBC) [Entitic mass] 31.5 pg 26.0 - 34.0 pg [facility] MCHC (RBC) [Mass/Vol] 30.7 g/dL Low 32.0 - 36.0 g/dL [facility] MCV (RBC) [Entitic vol] 102 fL High 80 - 100 fL [facility] Nucleated RBC/100 WBC (Bld) [Ratio] 0.0 % [facility] Platelets (Bld) [#/Vol] 201 10*3/uL [facility] RBC (Bld) [#/Vol] 4.13 10*6/uL [facility] WBC (Bld) [#/Vol] 9.2 10*3/uL [facility] Erythrocyte distribution width (RBC) [Ratio] 12.8 % Normal 11.5-14.5 [facility] Comment on above: Performed By: #### 5 8410-2 ####DERRICK Hall ([id number])[facility] ([facility])[id number] [place] [address] Hematocrit (Bld) [Volume fraction] 42.3 % Normal 36.0-46.0 [facility] Comment on above: Performed By: #### 5 8410-2 ####DERRICK Hall ([id number])[facility] ([facility])[id number] [place] [address] Hemoglobin (Bld) [Mass/Vol] 13.0 g/dL Normal 12.0-16.0 [facility] Comment on above: Performed By: #### 5 8410-2 ####DERRICK Hall ([id number])[facility] ([facility])[address] [place] [address] MCH (RBC) [Entitic mass] 31.5 pg Normal 26.0-34.0 [facility] Comment on above: Performed By: #### 5 8410-2 ####DERRICK Hall ([id number])[facility] ([facility])[id number] [place] [address] MCHC (RBC) [Mass/Vol] 30.7 g/dL Low 32.0-36.0 [facility] Comment on above: Performed By: #### 5 8410-2 ####DERRICK Hall ([id number])[facility] ([facility])[id number] [place] [address] MCV (RBC) [Entitic vol] 102 fL High 80-100 [facility] Comment on above: Performed By: #### 5 8410-2 ####DERRICK Hall ([id number])[facility] ([facility])[address] [place] [address] Nucleated RBC/100 WBC (Bld) [Ratio] 0.0 /100 WBCs Normal 0.0-0.0 [facility] Comment on above: Performed By: #### 5 8410-2 ####DERRICK Hall ([id number])[facility] ([facility])[address] [place] [address] Platelets (Bld) [#/Vol] 201 x10*3/uL Normal 150-450 [facility] Comment on above: Performed By: #### 5 8410-2 ####DERRICK Hall ([id number])[facility] ([facility])[id number] [place] [address] RBC (Bld) [#/Vol] 4.13 x10*6/uL Normal 4.00-5.20 [facility] Comment on above: Performed By: #### 5 8410-2 ####DERRICK Hall ([id number])[facility] ([facility])[id number] [place] [address] WBC (Bld) [#/Vol] 9.2 x10*3/uL Normal 4.4-11.3 [facility] Comment on above: Performed By: #### 5 8410-2 ####DERRICK Hall ([id number])[facility] ([facility])[id number] [place] [address] CHEST ABDOMEN PELVIS W IV CONTRASTon 03-28-2025 CT CHEST ABDOMEN PELVIS W IV CONTRAST Normal [facility] CT Chest and Abdomen and Pel vis W contrast Cookie 03-28-2025 [facility] Work Phone: Radiology Study observation (narrative) [facility] Work Phone: CT Chest and Abdomen and Pel vis W contrast IVOrdered By: Francis Ratliff on 03-28-2025 [facility] Work Phone: Glucose Test strip manual (B ld) [Mass/Vol]on 03-28-2025 Glucose [Mass/Vol] 101 mg/dL High 74-99 [facility] Comment on above: Performed By: #### 2 341-6 ####DERRICK Hall ([id number])[facility] ([facility])[address] [place] [address] Glucose [Mass/Vol] 112 mg/dL High 74 - 99 mg/dL [facility] Interpretation and review of laboratory results Abnormal [facility] Glucose [Mass/Vol] 112 mg/dL High 74-99 [facility] Comment on above: Performed By: #### 2 341-6 ####DERRICK Hall ([id number])[facility] ([facility])[address] [place] [address] Glucose [Mass/Vol] 113 mg/dL High 74 - 99 mg/dL [facility] Interpretation and review of laboratory results Abnormal [facility] Glucose [Mass/Vol] 113 mg/dL High 74-99 [facility] Comment on above: Performed By: #### 2 341-6 ####DERRICK Hall ([id number])[facility] ([facility])[address] [place] [address] Glucose [Mass/Vol] 116 mg/dL High 74 - 99 mg/dL [facility] Interpretation and review of laboratory results Abnormal [facility] Glucose [Mass/Vol] 116 mg/dL High 74-99 [facility] Comment on above: Performed By: #### 2 341-6 ####DERRICK Hall ([id number])[facility] ([facility])[address] [place] [address] Glucose [Mass/Vol] 109 mg/dL High 74-99 [facility] Comment on above: Performed By: #### 2 341-6 ####DERRICK Hall ([id number])[facility] ([facility])[address] [place] [address] Glucose [Mass/Vol] 106 mg/dL High 74 - 99 mg/dL [facility] Interpretation and review of laboratory results Abnormal [facility] Glucose [Mass/Vol] 106 mg/dL High 74-99 [facility] Comment on above: Performed By: #### 2 341-6 ####DERRICK Hall ([id number])[facility] ([facility])[id number] [place] [address] Glucose [Mass/Vol] 107 mg/dL High 74 - 99 mg/dL [facility] Interpretation and review of laboratory results Abnormal [facility] Glucose [Mass/Vol] 107 mg/dL High 74-99 [facility] Comment on above: Performed By: #### 2 341-6 ####DERRICK Hall ([id number])[facility] ([facility])[address] [place] [address] Glucose [Mass/Vol] 119 mg/dL High 74 - 99 mg/dL [facility] Interpretation and review of laboratory results Abnormal [facility] Glucose [Mass/Vol] 119 mg/dL High 74-99 [facility] Comment on above: Performed By: #### 2 341-6 ####DERRICK Hall ([id number])[facility] ([facility])[address] [place] [address] MR BRAIN W AND WO IV CONTRAS Ton 03-28-2025 MR BRAIN W AND WO IV CONTRAST Normal [facility] Magnesiumon 03-28-2025 Magnesium [Mass/Vol] 2.20 mg/dL 1.60 - 2.40 mg/dL [facility] Magnesium [Mass/Vol] 2.20 mg/dL Normal 1.60-2.40 [facility] Comment on above: Performed By: #### 1 9123-9 ####DERRICK Hall ([id number])[facility] ([facility])[address] [place] [address] Magnesium [Mass/Vol]on 03-28 Interpretation and review of laboratory results Normal [facility] No Panel Informationon 03-28 [facility] Renal function 2000 panelon 03-28-2025 Albumin BCP dye [Mass/Vol] 3.1 g/dL Low 3.4 - 5.0 g/dL [facility] Anion gap [Moles/Vol] 15 mmol/L 10 - 2 0 mmol/L [facility] Calcium [Mass/Vol] 9.0 mg/dL 8.6 - 10. 6 mg/dL [facility] Chloride [Moles/Vol] 97 mmol/L Low 98 - 10 7 mmol/L [facility] CO2 [Moles/Vol] 29 mmol/L 21 - 32 mmol/L [facility] Creatinine [Mass/Vol] 0.46 mg/dL Low 0.50 - 1.05 mg/dL [facility] eGFR - PINF [facility] Glucose [Mass/Vol] 99 mg/dL 74 - 99 mg/dL [facility] Interpretation and review of laboratory results Abnormal [facility] Phosphate [Mass/Vol] 2.5 mg/dL 2.5 - 4 .9 mg/dL [facility] Potassium [Moles/Vol] 3.8 mmol/L 3.5 - 5.3 mmol/L [facility] Sodium [Moles/Vol] 137 mmol/L 136 - 145 mmol/L [facility] Urea nitrogen [Mass/Vol] 19 mg/dL 6 - 23 mg/dL [facility] Albumin BCP dye [Mass/Vol] 3.1 g/dL Low 3.4-5.0 [facility] Comment on above: Performed By: #### 2 4362-6 ####DERRICK Hall ([id number])[facility] ([facility])[address] [place] [address] Anion gap [Moles/Vol] 15 mmol/L Normal 10-20 [facility] Comment on above: Performed By: #### 2 4362-6 ####DERRICK Hall ([id number])[facility] ([facility])[address] [place] [address] Calcium [Mass/Vol] 9.0 mg/dL Normal 8.6-10.6 [facility] Comment on above: Performed By: #### 2 4362-6 ####DERRICK Hall ([id number])[facility] ([facility])[address] [place] [address] Chloride [Moles/Vol] 97 mmol/L Low 98-107 [facility] Comment on above: Performed By: #### 2 4362-6 ####DERRICK Hall ([id number])[facility] ([facility])[address] [place] [address] CO2 [Moles/Vol] 29 mmol/L Normal 21-[address] [facility] Comment on above: Performed By: #### 2 4362-6 ####DERRICK Hall ([id number])[facility] ([facility])[address] [place] [address] Creatinine [Mass/Vol] 0.46 mg/dL Low 0.50-1.05 [facility] Comment on above: Performed By: #### 2 4362-6 ####DERRICK Hall ([id number])[facility] ([facility])[address] [place] [address] GFR/1.73 sq M.predicted MDRD (S/P/Bld) [Vol rate/Area] mL/min/{1.73_m2} Normal >60 [facility] Comment on above: Result Comment: Calc ulations of estimated GFR are performed using the 2020 CKD-EPI Study Refit equation without the race variable for the IDMS-Traceable creatinine methods.https://jasn.asnjournals.org/content/early// N.6536861766 Performed By: #### 2 4362-6 ####DERRICK Hall ([id number])[facility] ([facility])[address] [place] [address] Glucose [Mass/Vol] 99 mg/dL Normal 74-99 [facility] Comment on above: Performed By: #### 2 4362-6 ####DERRICK Hall ([id number])[facility] ([facility])[address] [place] [address] Phosphate [Mass/Vol] 2.5 mg/dL Normal 2.5-4.9 [facility] Comment on above: Performed By: #### 2 4362-6 ####DERRICK Hall ([id number])[facility] ([facility])[address] [place] [address] Potassium [Moles/Vol] 3.8 mmol/L Normal 3.5-5.3 [facility] Comment on above: Performed By: #### 2 4362-6 ####DERRICK Hall ([id number])[facility] ([facility])[address] [place] [address] Sodium [Moles/Vol] 137 mmol/L Normal 136-145 [facility] Comment on above: Performed By: #### 2 4362-6 ####DERRICK Hall ([id number])[facility] ([facility])[address] [place] [address] Urea nitrogen [Mass/Vol] 19 mg/dL Normal 6-23 [facility] Comment on above: Performed By: #### 2 4362-6 ####DERRICK Hall ([id number])[facility] ([facility])[address] [place] [address] Albumin BCP dye [Mass/Vol] 3.1 g/dL Low 3.4 - 5.0 g/dL [facility] Anion gap [Moles/Vol] 14 mmol/L 10 - 2 0 mmol/L [facility] Calcium [Mass/Vol] 9.1 mg/dL 8.6 - 10. 6 mg/dL [facility] Chloride [Moles/Vol] 97 mmol/L Low 98 - 10 7 mmol/L [facility] CO2 [Moles/Vol] 34 mmol/L High 21 - 32 mmol/L [facility] Creatinine [Mass/Vol] 0.59 mg/dL 0.50 - 1.05 mg/dL [facility] eGFR - PINF [facility] Glucose [Mass/Vol] 100 mg/dL High 74 - 99 mg/dL [facility] Interpretation and review of laboratory results Abnormal [facility] Phosphate [Mass/Vol] 3.1 mg/dL 2.5 - 4 .9 mg/dL [facility] Potassium [Moles/Vol] 3.8 mmol/L 3.5 - 5.3 mmol/L [facility] Sodium [Moles/Vol] 141 mmol/L 136 - 145 mmol/L [facility] Urea nitrogen [Mass/Vol] 21 mg/dL 6 - 23 mg/dL [facility] Albumin BCP dye [Mass/Vol] 3.1 g/dL Low 3.4-5.0 [facility] Comment on above: Performed By: #### 2 4362-6 ####DERRICK Hall ([id number])[facility] ([facility])[address] [place] [address] Anion gap [Moles/Vol] 14 mmol/L Normal 10-20 [facility] Comment on above: Performed By: #### 2 4362-6 ####DERRICK Hall ([id number])[facility] ([facility])[address] [place] [address] Calcium [Mass/Vol] 9.1 mg/dL Normal 8.6-10.6 [facility] Comment on above: Performed By: #### 2 4362-6 ####DERRICK Hall ([id number])[facility] ([facility])[address] [place] [address] Chloride [Moles/Vol] 97 mmol/L Low 98-107 [facility] Comment on above: Performed By: #### 2 4362-6 ####DERRICK Hall ([id number])[facility] ([facility])[address] [place] [address] CO2 [Moles/Vol] 34 mmol/L High 21-[address] [facility] Comment on above: Performed By: #### 2 4362-6 ####DERRICK Hall ([id number])[facility] ([facility])[address] [place] [address] Creatinine [Mass/Vol] 0.59 mg/dL Normal 0.50-1.05 [facility] Comment on above: Performed By: #### 2 4362-6 ####DERRICK Hall ([id number])[facility] ([facility])[address] [place] [address] GFR/1.73 sq M.predicted MDRD (S/P/Bld) [Vol rate/Area] mL/min/{1.73_m2} Normal >60 [facility] Comment on above: Result Comment: Calc ulations of estimated GFR are performed using the 2020 CKD-EPI Study Refit equation without the race variable for the IDMS-Traceable creatinine methods.https://jasn.asnjournals.org/content/early// N.1839512410 Performed By: #### 2 4362-6 ####DERRICK Hall ([id number])[facility] ([facility])[address] [place] [address] Glucose [Mass/Vol] 100 mg/dL High 74-99 [facility] Comment on above: Performed By: #### 2 4362-6 ####DERRICK Hall ([id number])[facility] ([facility])[address] [place] [address] Phosphate [Mass/Vol] 3.1 mg/dL Normal 2.5-4.9 [facility] Comment on above: Performed By: #### 2 4362-6 ####DERRICK Hall ([id number])[facility] ([facility])[address] [place] [address] Potassium [Moles/Vol] 3.8 mmol/L Normal 3.5-5.3 [facility] Comment on above: Performed By: #### 2 4362-6 ####DERRICK Hall ([id number])[facility] ([facility])[address] [place] [address] Sodium [Moles/Vol] 141 mmol/L Normal 136-145 [facility] Comment on above: Performed By: #### 2 4362-6 ####DERRICK Hall ([id number])[facility] ([facility])[address] [place] [address] Urea nitrogen [Mass/Vol] 21 mg/dL Normal 6-23 [facility] Comment on above: Performed By: #### 2 4362-6 ####DERRICK Hall ([id number])[facility] ([facility])[address] [place] [address] XR CHEST 1 VIEWon 03-28-2025 XR CHEST 1 VIEW Normal [facility] XR Chest Single viewon 03-28 [facility] MMODAL UH MMODAL [facility] Work Phone: Radiology Study observation (narrative) [facility] Work Phone: XR Chest Single viewOrdered By: Shantanu Hui on 03-28-2025 [facility] Work Phone: CBC W Auto Differential pane l (Bld)on 03-27-2025 Basophils (Bld) [#/Vol] 0.03 x10*3/uL Normal 0.00-0.10 [facility] Comment on above: Performed By: #### 5 7021-8 ####DERRICK Hall ([id number])[facility] ([facility])[address] [place] [address] Basophils/100 WBC (Bld) 0.3 % Normal 0.0-2.0 [facility] Comment on above: Performed By: #### 5 7021-8 ####DERRICK Hall ([id number])[facility] ([facility])[address] [place] [address] Eosinophils (Bld) [#/Vol] 0.34 x10*3/uL Normal 0.00-0.70 [facility] Comment on above: Performed By: #### 5 7021-8 ####DERRICK Hall ([id number])[facility] ([facility])[address] [place] [address] Eosinophils/100 WBC (Bld) 2.9 % Normal 0.0-6.0 [facility] Comment on above: Performed By: #### 5 7021-8 ####DERRICK Hall ([id number])[facility] ([facility])[address] [place] [address] Erythrocyte distribution width (RBC) [Ratio] 13.2 % Normal 11.5-14.5 [facility] Comment on above: Performed By: #### 5 7021-8 ####DERRICK Hall ([id number])[facility] ([facility])[address] [place] [address] Hematocrit (Bld) [Volume fraction] 40.0 % Normal 36.0-46.0 [facility] Comment on above: Performed By: #### 5 7021-8 ####DERRICK Hall ([id number])[facility] ([facility])[address] [place] [address] Hemoglobin (Bld) [Mass/Vol] 13.3 g/dL Normal 12.0-16.0 [facility] Comment on above: Performed By: #### 5 7021-8 ####DERRICK Hall ([id number])[facility] ([facility])[address] [place] [address] Immature granulocytes (Bld) [#/Vol] 0.05 x10*3/uL Normal 0.00-0.70 [facility] Comment on above: Performed By: #### 5 7021-8 ####DERRICK Hall ([id number])[facility] ([facility])[address] [place] [address] Immature granulocytes/100 WBC (Bld) 0.4 % Normal 0.0-0.9 [facility] Comment on above: Result Comment: Arlen ture Granulocyte Count (IG) includes promyelocytes, myelocytes and metamyelocytes but does not include bands. Percent differential counts (%) should be interpreted in the context of the absolute cell counts (cells/UL). Performed By: #### 5 7021-8 ####DERRICK Hall ([id number])[facility] ([facility])[address] [place] [address] Lymphocytes (Bld) [#/Vol] 0.87 x10*3/uL Low 1.20-4.80 [facility] Comment on above: Performed By: #### 5 7021-8 ####DERRICK Hall ([id number])[facility] ([facility])[address] [place] [address] Lymphocytes/100 WBC (Bld) 7.5 % Normal 13.0-44.0 [facility] Comment on above: Performed By: #### 5 7021-8 ####DERRICK Hall ([id number])[facility] ([facility])[address] [place] [address] MCH (RBC) [Entitic mass] 31.4 pg Normal 26.0-34.0 [facility] Comment on above: Performed By: #### 5 7021-8 ####DERRICK Hall ([id number])[facility] ([facility])[address] [place] [address] MCHC (RBC) [Mass/Vol] 33.3 g/dL Normal 32.0-36.0 [facility] Comment on above: Performed By: #### 5 7021-8 ####DERRICK Hall ([id number])[facility] ([facility])[address] [place] [address] MCV (RBC) [Entitic vol] 94 fL Normal 80-100 [facility] Comment on above: Performed By: #### 5 7021-8 ####DERRICK Hall ([id number])[facility] ([facility])[address] [place] [address] Monocytes (Bld) [#/Vol] 0.80 x10*3/uL Normal 0.10-1.00 [facility] Comment on above: Performed By: #### 5 7021-8 ####DERRICK Hall ([id number])[facility] ([facility])[address] [place] [address] Monocytes/100 WBC (Bld) 6.9 % Normal 2.0-10.0 [facility] Comment on above: Performed By: #### 5 7021-8 ####DERRICK Hall ([id number])[facility] ([facility])[address] [place] [address] Neutrophils (Bld) [#/Vol] 9.49 x10*3/uL High 1.20-7.70 [facility] Comment on above: Result Comment: Perc ent differential counts (%) should be interpreted in the context of the absolute cell counts (cells/uL). Performed By: #### 5 7021-8 ####DERRICK Hall ([id number])[facility] ([facility])[address] [place] [address] Neutrophils/100 WBC (Bld) 82.0 % Normal 40.0-80.0 [facility] Comment on above: Performed By: #### 5 7021-8 ####DERRICK Hall ([id number])[facility] ([facility])[address] [place] [address] Nucleated RBC/100 WBC (Bld) [Ratio] 0.0 /100 WBCs Normal 0.0-0.0 [facility] Comment on above: Performed By: #### 5 7021-8 ####DERRICK Hall ([id number])[facility] ([facility])[address] [place] [address] Platelets (Bld) [#/Vol] 192 x10*3/uL Normal 150-450 [facility] Comment on above: Performed By: #### 5 7021-8 ####DERRICK Hall ([id number])[facility] ([facility])[address] [place] [address] RBC (Bld) [#/Vol] 4.24 x10*6/uL Normal 4.00-5.20 [facility] Comment on above: Performed By: #### 5 7021-8 ####DERRICK Hall ([id number])[facility] ([facility])[address] [place] [address] WBC (Bld) [#/Vol] 11.6 x10*3/uL High 4.4-11.3 [facility] Comment on above: Performed By: #### 5 7021-8 ####DERRICK Hall ([id number])[facility] ([facility])[address] [place] [address] CBC panel Auto (Bld)on 03-27 Erythrocyte distribution width (RBC) [Ratio] 13.0 % 11.5 - 14.5 % [facility] Hematocrit (Bld) [Volume fraction] 39.8 % 36.0 - 46.0 % [facility] Hemoglobin (Bld) [Mass/Vol] 13.3 g/dL 12.0 - 16.0 g/dL [facility] Interpretation and review of laboratory results Normal [facility] MCH (RBC) [Entitic mass] 31.7 pg 26.0 - 34.0 pg [facility] MCHC (RBC) [Mass/Vol] 33.4 g/dL 32.0 - 36.0 g/dL [facility] MCV (RBC) [Entitic vol] 95 fL 80 - 100 fL [facility] Nucleated RBC/100 WBC (Bld) [Ratio] 0.0 % [facility] Platelets (Bld) [#/Vol] 202 10*3/uL [facility] RBC (Bld) [#/Vol] 4.20 10*6/uL [facility] WBC (Bld) [#/Vol] 10.3 10*3/uL [facility] Erythrocyte distribution width (RBC) [Ratio] 13.0 % Normal 11.5-14.5 [facility] Comment on above: Performed By: #### 5 8410-2 ####DERRICK Hall ([id number])[facility] ([facility])[address] [place] [address] Hematocrit (Bld) [Volume fraction] 39.8 % Normal 36.0-46.0 [facility] Comment on above: Performed By: #### 5 8410-2 ####DERRICK Hall ([id number])[facility] ([facility])[address] [place] [address] Hemoglobin (Bld) [Mass/Vol] 13.3 g/dL Normal 12.0-16.0 [facility] Comment on above: Performed By: #### 5 8410-2 ####DERRICK Hall ([id number])[facility] ([facility])[address] [place] [address] MCH (RBC) [Entitic mass] 31.7 pg Normal 26.0-34.0 [facility] Comment on above: Performed By: #### 5 8410-2 ####DERRICK Hall ([id number])[facility] ([facility])[address] [place] [address] MCHC (RBC) [Mass/Vol] 33.4 g/dL Normal 32.0-36.0 [facility] Comment on above: Performed By: #### 5 8410-2 ####DERRICK Hall ([id number])[facility] ([facility])[address] [place] [address] MCV (RBC) [Entitic vol] 95 fL Normal 80-100 [facility] Comment on above: Performed By: #### 5 8410-2 ####DERRICK Hall ([id number])[facility] ([facility])[address] [place] [address] Nucleated RBC/100 WBC (Bld) [Ratio] 0.0 /100 WBCs Normal 0.0-0.0 [facility] Comment on above: Performed By: #### 5 8410-2 ####DERRICK Hall ([id number])[facility] ([facility])[address] [place] [address] Platelets (Bld) [#/Vol] 202 x10*3/uL Normal 150-450 [facility] Comment on above: Performed By: #### 5 8410-2 ####DERRICK Hall ([id number])[facility] ([facility])[address] [place] [address] RBC (Bld) [#/Vol] 4.20 x10*6/uL Normal 4.00-5.20 [facility] Comment on above: Performed By: #### 5 8410-2 ####DERRICK Hall ([id number])[facility] ([facility])[address] [place] [address] WBC (Bld) [#/Vol] 10.3 x10*3/uL Normal 4.4-11.3 [facility] Comment on above: Performed By: #### 5 8410-2 ####DERRICK Hall ([id number])[facility] ([facility])[address] [place] [address] Glucose Test strip manual (B ld) [Mass/Vol]on 03-27-2025 Glucose [Mass/Vol] 124 mg/dL High 74 - 99 mg/dL [facility] Interpretation and review of laboratory results Abnormal [facility] Glucose [Mass/Vol] 124 mg/dL High 74-99 [facility] Comment on above: Performed By: #### 2 341-6 ####DERRICK Hall ([id number])[facility] ([facility])[address] [place] [address] Glucose [Mass/Vol] 132 mg/dL High 74 - 99 mg/dL [facility] Glucose [Mass/Vol] 132 mg/dL High 74-99 [facility] Comment on above: Performed By: #### 2 341-6 ####DERRICK Hall ([id number])[facility] ([facility])[address] [place] [address] Glucose [Mass/Vol] 146 mg/dL High 74-99 [facility] Comment on above: Performed By: #### 2 341-6 ####DERRICK Hall ([id number])[facility] ([facility])[address] [place] [address] Glucose [Mass/Vol] 130 mg/dL High 74-99 [facility] Comment on above: Performed By: #### 2 341-6 ####DERRICK Hall ([id number])[facility] ([facility])[address] [place] [address] Glucose [Mass/Vol] 136 mg/dL High 74-99 [facility] Comment on above: Performed By: #### 2 341-6 ####DERRICK Hall ([id number])[facility] ([facility])[address] [place] [address] Magnesiumon 03-27-2025 Magnesium [Mass/Vol] 1.89 mg/dL 1.60 - 2.40 mg/dL [facility] Magnesium [Mass/Vol] 1.89 mg/dL Normal 1.60-2.40 [facility] Comment on above: Performed By: #### 1 9123-9 ####DERRICK Hall ([id number])[facility] ([facility])[address] [place] [address] Magnesium [Mass/Vol] 1.88 mg/dL Normal 1.60-2.40 [facility] Comment on above: Performed By: #### 1 9123-9 ####DERRICK Hall ([id number])[facility] ([facility])[address] [place] [address] Magnesium [Mass/Vol]on 03-27 Interpretation and review of laboratory results Normal [facility] No Panel Informationon 03-27 [facility] Test Comment The test request has been received by the lab and will be reviewed. [facility] Renal function 2000 panelon 03-27-2025 Albumin BCP dye [Mass/Vol] 3.2 g/dL Low 3.4 - 5.0 g/dL [facility] Anion gap [Moles/Vol] 15 mmol/L 10 - 2 0 mmol/L [facility] Calcium [Mass/Vol] 9.3 mg/dL 8.6 - 10. 6 mg/dL [facility] Chloride [Moles/Vol] 97 mmol/L Low 98 - 10 7 mmol/L [facility] CO2 [Moles/Vol] 35 mmol/L High 21 - 32 mmol/L [facility] Creatinine [Mass/Vol] 0.61 mg/dL 0.50 - 1.05 mg/dL [facility] eGFR - PINF [facility] Glucose [Mass/Vol] 129 mg/dL High 74 - 99 mg/dL [facility] Interpretation and review of laboratory results Abnormal [facility] Phosphate [Mass/Vol] 3.0 mg/dL 2.5 - 4 .9 mg/dL [facility] Potassium [Moles/Vol] 3.6 mmol/L 3.5 - 5.3 mmol/L [facility] Sodium [Moles/Vol] 143 mmol/L 136 - 145 mmol/L [facility] Urea nitrogen [Mass/Vol] 18 mg/dL 6 - 23 mg/dL [facility] Albumin BCP dye [Mass/Vol] 3.2 g/dL Low 3.4-5.0 [facility] Comment on above: Performed By: #### 2 4362-6 ####DERRICK Hall ([id number])[facility] ([facility])[id number] [place] [address] 20204 Anion gap [Moles/Vol] 15 mmol/L Normal 10-20 [facility] Comment on above: Performed By: #### 2 4362-6 ####DERRICK Hall ([id number])[facility] ([facility])[address] [place] [address] Calcium [Mass/Vol] 9.3 mg/dL Normal 8.6-10.6 [facility] Comment on above: Performed By: #### 2 4362-6 ####DERRICK Hall ([id number])[facility] ([facility])[address] [place] [address] Chloride [Moles/Vol] 97 mmol/L Low 98-107 [facility] Comment on above: Performed By: #### 2 4362-6 ####DERRICK Hall ([id number])[facility] ([facility])[address] [place] [address] CO2 [Moles/Vol] 35 mmol/L High 21-[address] [facility] Comment on above: Performed By: #### 2 4362-6 ####DERRICK Hall ([id number])[facility] ([facility])[address] [place] [address] Creatinine [Mass/Vol] 0.61 mg/dL Normal 0.50-1.05 [facility] Comment on above: Performed By: #### 2 4362-6 ####DERRICK Hall ([id number])[facility] ([facility])[address] [place] [address] GFR/1.73 sq M.predicted MDRD (S/P/Bld) [Vol rate/Area] mL/min/{1.73_m2} Normal >60 [facility] Comment on above: Result Comment: Calc ulations of estimated GFR are performed using the 2020 CKD-EPI Study Refit equation without the race variable for the IDMS-Traceable creatinine methods.https://jasn.asnjournals.org/content// N.4536659558 Performed By: #### 2 4362-6 ####DERRICK Hall ([id number])[facility] ([facility])[address] [place] [address] Glucose [Mass/Vol] 129 mg/dL High 74-99 [facility] Comment on above: Performed By: #### 2 4362-6 ####DERRICK Hall ([id number])[facility] ([facility])[address] [place] [address] Phosphate [Mass/Vol] 3.0 mg/dL Normal 2.5-4.9 [facility] Comment on above: Performed By: #### 2 4362-6 ####DERRICK Hall ([id number])[facility] ([facility])[address] [place] [address] Potassium [Moles/Vol] 3.6 mmol/L Normal 3.5-5.3 [facility] Comment on above: Performed By: #### 2 4362-6 ####DERRICK Hall ([id number])[facility] ([facility])[address] [place] [address] Sodium [Moles/Vol] 143 mmol/L Normal 136-145 [facility] Comment on above: Performed By: #### 2 4362-6 ####DERRICK Hall ([id number])[facility] ([facility])[address] [place] [address] Urea nitrogen [Mass/Vol] 18 mg/dL Normal 6-23 [facility] Comment on above: Performed By: #### 2 4362-6 ####DERRICK Hall ([id number])[facility] ([facility])[address] [place] [address] Albumin BCP dye [Mass/Vol] 3.1 g/dL Low 3.4-5.0 [facility] Comment on above: Performed By: #### 2 4362-6 ####DERRICK Hall ([id number])[facility] ([facility])[address] [place] [address] Anion gap [Moles/Vol] 16 mmol/L Normal 10-20 [facility] Comment on above: Performed By: #### 2 4362-6 ####DERRICK Hall ([id number])[facility] ([facility])[address] [place] [address] Calcium [Mass/Vol] 9.5 mg/dL Normal 8.6-10.6 [facility] Comment on above: Performed By: #### 2 4362-6 ####DERRICK Hall ([id number])[facility] ([facility])[address] [place] [address] Chloride [Moles/Vol] 103 mmol/L Normal 98-107 [facility] Comment on above: Performed By: #### 2 4362-6 ####DERRICK Hall ([id number])[facility] ([facility])[address] [place] [address] CO2 [Moles/Vol] 31 mmol/L Normal 21-[address] [facility] Comment on above: Performed By: #### 2 4362-6 ####DERRICK Hall ([id number])[facility] ([facility])[address] [place] [address] Creatinine [Mass/Vol] 0.71 mg/dL Normal 0.50-1.05 [facility] Comment on above: Performed By: #### 2 4362-6 ####DERRICK Hall ([id number])[facility] ([facility])[address] [place] [address] GFR/1.73 sq M.predicted MDRD (S/P/Bld) [Vol rate/Area] mL/min/{1.73_m2} Normal >60 [facility] Comment on above: Result Comment: Calc ulations of estimated GFR are performed using the 2020 CKD-EPI Study Refit equation without the race variable for the IDMS-Traceable creatinine methods.https://jasn.asnjournals.org/content/early/ N.5365321098 Performed By: #### 2 4362-6 ####DERRICK Hall ([id number])[facility] ([facility])[address] [place] [address] Glucose [Mass/Vol] 133 mg/dL High 74-99 [facility] Comment on above: Performed By: #### 2 4362-6 ####DERRICK Hall ([id number])[facility] ([facility])[address] [place] [address] Phosphate [Mass/Vol] 3.1 mg/dL Normal 2.5-4.9 [facility] Comment on above: Performed By: #### 2 4362-6 ####DERRICK Hall ([id number])[facility] ([facility])[address] [place] [address] Potassium [Moles/Vol] 3.6 mmol/L Normal 3.5-5.3 [facility] Comment on above: Performed By: #### 2 4362-6 ####DERRICK Hall ([id number])[facility] ([facility])[address] [place] [address] Sodium [Moles/Vol] 146 mmol/L High 136-145 [facility] Comment on above: Performed By: #### 2 4362-6 ####DERRICK Hall ([id number])[facility] ([facility])[address] [place] [address] Urea nitrogen [Mass/Vol] 20 mg/dL Normal 6-23 [facility] Comment on above: Performed By: #### 2 4362-6 ####DERRICK Hall ([id number])[facility] ([facility])[address] [place] [address] CBC W Auto Differential pane l (Bld)on 03-26-2025 Basophils (Bld) [#/Vol] 0.03 x10*3/uL Normal 0.00-0.10 [facility] Comment on above: Performed By: #### 5 7021-8 ####DERRICK Hall ([id number])[facility] ([facility])[address] [place] [address] Basophils/100 WBC (Bld) 0.3 % Normal 0.0-2.0 [facility] Comment on above: Performed By: #### 5 7021-8 ####DERRICK BRAR L ([id number])[facility] ([facility])[address] [place] [address] Eosinophils (Bld) [#/Vol] 0.21 x10*3/uL Normal 0.00-0.70 [facility] Comment on above: Performed By: #### 5 7021-8 ####DERRICK BRAR L ([id number])[facility] ([facility])[address] [place] [address] Eosinophils/100 WBC (Bld) 2.1 % Normal 0.0-6.0 [facility] Comment on above: Performed By: #### 5 7021-8 ####DERRICK Hall ([id number])[facility] ([facility])[address] [place] [address] Erythrocyte distribution width (RBC) [Ratio] 13.3 % Normal 11.5-14.5 [facility] Comment on above: Performed By: #### 5 7021-8 ####DERRICK Hall ([id number])[facility] ([facility])[address] [place] [address] Hematocrit (Bld) [Volume fraction] 36.5 % Normal 36.0-46.0 [facility] Comment on above: Performed By: #### 5 7021-8 ####DERRICK Hall ([id number])[facility] ([facility])[address] [place] [address] Hemoglobin (Bld) [Mass/Vol] 12.0 g/dL Normal 12.0-16.0 [facility] Comment on above: Performed By: #### 5 7021-8 ####DERRICK Hall ([id number])[facility] ([facility])[address] [place] [address] Immature granulocytes (Bld) [#/Vol] 0.08 x10*3/uL Normal 0.00-0.70 [facility] Comment on above: Performed By: #### 5 7021-8 ####DERRICK Hall ([id number])[facility] ([facility])[address] [place] [address] Immature granulocytes/100 WBC (Bld) 0.8 % Normal 0.0-0.9 [facility] Comment on above: Result Comment: Arlen ture Granulocyte Count (IG) includes promyelocytes, myelocytes and metamyelocytes but does not include bands. Percent differential counts (%) should be interpreted in the context of the absolute cell counts (cells/UL). Performed By: #### 5 7021-8 ####DERRICK Hall ([id number])[facility] ([facility])[address] [place] [address] Lymphocytes (Bld) [#/Vol] 0.81 x10*3/uL Low 1.20-4.80 [facility] Comment on above: Performed By: #### 5 7021-8 ####DERRICK Hall ([id number])[facility] ([facility])[address] [place] [address] 8[address] Lymphocytes/100 WBC (Bld) 8.1 % Normal 13.0-44.0 [facility] Comment on above: Performed By: #### 5 7021-8 ####DERRICK Hall ([id number])[facility] ([facility])[address] [place] [address] 13845 MCH (RBC) [Entitic mass] 30.8 pg Normal 26.0-34.0 [facility] Comment on above: Performed By: #### 5 7021-8 ####DERRICK Hall ([id number])[facility] ([facility])[address] [place] [address] 19174 MCHC (RBC) [Mass/Vol] 32.9 g/dL Normal 32.0-36.0 [facility] Comment on above: Performed By: #### 5 7021-8 ####DERRICK Hall ([id number])[facility] ([facility])[address] [place] [address] 40767 MCV (RBC) [Entitic vol] 94 fL Normal 80-100 [facility] Comment on above: Performed By: #### 5 7021-8 ####DERRICK Hall ([id number])[facility] ([facility])[address] [place] [address] 61483 Monocytes (Bld) [#/Vol] 0.69 x10*3/uL Normal 0.10-1.00 [facility] Comment on above: Performed By: #### 5 7021-8 ####DERRICK Hall ([id number])[facility] ([facility])[address] [place] [address] Monocytes/100 WBC (Bld) 6.9 % Normal 2.0-10.0 [facility] Comment on above: Performed By: #### 5 7021-8 ####DERRICK Hall ([id number])[facility] ([facility])[address] [place] [address] Neutrophils (Bld) [#/Vol] 8.13 x10*3/uL High 1.20-7.70 [facility] Comment on above: Result Comment: Perc ent differential counts (%) should be interpreted in the context of the absolute cell counts (cells/uL). Performed By: #### 5 7021-8 ####DERRICK Hall ([id number])[facility] ([facility])[address] [place] [address] Neutrophils/100 WBC (Bld) 81.8 % Normal 40.0-80.0 [facility] Comment on above: Performed By: #### 5 7021-8 ####DERRICK Hall ([id number])[facility] ([facility])[address] [place] [address] Nucleated RBC/100 WBC (Bld) [Ratio] 0.0 /100 WBCs Normal 0.0-0.0 [facility] Comment on above: Performed By: #### 5 7021-8 ####DERRICK Hall (85532)[facility] ([facility])[address] [place] [address] Platelets (Bld) [#/Vol] 183 x10*3/uL Normal 150-450 [facility] Comment on above: Performed By: #### 5 7021-8 ####DERRICK Hall ([id number])[facility] ([facility])[address] [place] [address] RBC (Bld) [#/Vol] 3.90 x10*6/uL Low 4.00-5.20 [facility] Comment on above: Performed By: #### 5 7021-8 ####DERRICK Hall ([id number])[facility] ([facility])[address] [place] [address] WBC (Bld) [#/Vol] 10.0 x10*3/uL Normal 4.4-11.3 [facility] Comment on above: Performed By: #### 5 7021-8 ####DERRICK Hall ([id number])[facility] ([facility])[address] [place] [address] Gas panel (BldV)on 5 Base excess Calc (BldV) [Moles/Vol] 3.7 mmol/L High -2.0-3.0 [facility] Comment on above: Performed By: #### 2 4339-4 ####DERRICK Hall ([id number])[facility] ([facility])[address] [place] [address]555 CO2 (BldV) [Partial pressure] 43 mm Hg Normal 41-51 [facility] Comment on above: Performed By: #### 2 4339-4 ####DERRICK Hall ([id number])[facility] ([facility])[address] [place] [address] 34433 HCO3 (Bld) [Moles/Vol] 28.5 mmol/L High 22.0-26.0 [facility] Comment on above: Performed By: #### 2 4339-4 ####DERRICK Hall ([id number])[facility] ([facility])[address] [place] [address] Inhaled oxygen concentration 45 % Normal [facility] Comment on above: Performed By: #### 2 4339-4 ####DERRICK Hall (11982)[facility] ([facility])[address] [place] [address] Oxygen (BldV) [Partial pressure] 56 mm Hg High 35-45 [facility] Comment on above: Performed By: #### 2 4339-4 ####DERRICK Hall ([id number])[facility] ([facility])[address] [place] [address]38[address] Oxygen saturation in Venous blood 90 % High 45-75 [facility] Comment on above: Performed By: #### 2 4339-4 ####DERRICK Hall (29714)[facility] ([facility])[address] [place] [address] Oxyhemoglobin (BldV) [Mass fraction] 88.0 % High 45.0-75.0 [facility] Comment on above: Performed By: #### 2 4339-4 ####DERRICK Hall ([id number])[facility] ([facility])[address] [place] [address] pH (BldV) 7.43 [pH] Normal 7.33-7.43 [facility] Comment on above: Performed By: #### 2 4339-4 ####DERRICK Hall ([id number])[facility] ([facility])[address] [place] [address]11 Glucose Test strip manual (B ld) [Mass/Vol]on 03-26-2025 Glucose [Mass/Vol] 140 mg/dL High [address] [place] [address] Comment on above: Performed By: #### 2 341-6 ####DERRICK Hall (62410)[facility] ([facility])[address] [place] [address] Glucose [Mass/Vol] 163 mg/dL High [address] [place] [address] Comment on above: Performed By: #### 2 341-6 ####DERRICK Hall (93437)[facility] ([facility])[address] [place] [address] Glucose [Mass/Vol] 195 mg/dL High [address] [place] [address] Comment on above: Performed By: #### 2 341-6 ####DERRICK Hall ([id number])[facility] ([facility])[address] [place] [address] Glucose [Mass/Vol] 191 mg/dL High [address] [place] [address] Comment on above: Result Comment: CHARLES Jara OTIFIED Performed By: #### 2 341-6 ####DERRICK Hall ([id number])[facility] ([facility])[address] [place] [address] Glucose [Mass/Vol] 186 mg/dL High 74-99 [facility] Comment on above: Result Comment: CHARLES Jara OTIFIED Performed By: #### 2 341-6 ####DERRICK Hall ([id number])[facility] ([facility])[address] [place] [address] Glucose [Mass/Vol] 153 mg/dL High 74-99 [facility] Comment on above: Performed By: #### 2 341-6 ####DERRICK Hall ([id number])[facility] ([facility])[address] [place] [address] Magnesiumon 03-26-2025 Magnesium [Mass/Vol] 1.83 mg/dL Normal 1.60-2.40 [facility] Comment on above: Result Comment: MILD HEMOLYSIS DETECTED. The result may be falsely elevated due to hemolysis or other interferents. Clinical correlation is recommended. Repeat testing may be considered. Performed By: #### 1 9123-9 ####DERRICK Hall ([id number])[facility] ([facility])[address] [place] [address] Magnesium [Mass/Vol] 1.86 mg/dL Normal 1.60-2.40 [facility] Comment on above: Result Comment: MILD HEMOLYSIS DETECTED. The result may be falsely elevated due to hemolysis or other interferents. Clinical correlation is recommended. Repeat testing may be considered. Performed By: #### 1 9123-9 ####DERRICK Hall ([id number])[facility] ([facility])[address] [place] [address] Renal function 2000 panelon 03-26-2025 Albumin BCP dye [Mass/Vol] 3.2 g/dL Low 3.4-5.0 [facility] Comment on above: Performed By: #### 2 4362-6 ####DERRICK Hall (40887)[facility] ([facility])[address] [place] [address] Anion gap [Moles/Vol] 16 mmol/L Normal 10-20 [facility] Comment on above: Performed By: #### 2 4362-6 ####DERRICK Hall ([id number])[facility] ([facility])[address] [place] [address] Calcium [Mass/Vol] 9.5 mg/dL Normal 8.6-10.6 [facility] Comment on above: Performed By: #### 2 4362-6 ####DERRICK Hall (24277)[facility] ([facility])[address] [place] [address] Chloride [Moles/Vol] 101 mmol/L Normal 98-107 [facility] Comment on above: Performed By: #### 2 4362-6 ####DERRICK Hall ([id number])[facility] ([facility])[address] [place] [address] CO2 [Moles/Vol] 29 mmol/L Normal 21-[address] [facility] Comment on above: Performed By: #### 2 4362-6 ####DERRICK Hall ([id number])[facility] ([facility])[address] [place] [address] Creatinine [Mass/Vol] 0.74 mg/dL Normal 0.50-1.05 [facility] Comment on above: Performed By: #### 2 4362-6 ####DERRICK BRAR L (38119)[facility] ([facility])[address] [place] [address] GFR/1.73 sq M.predicted MDRD (S/P/Bld) [Vol rate/Area] mL/min/{1.73_m2} Normal >60 [facility] Comment on above: Result Comment: Calc ulations of estimated GFR are performed using the 2020 CKD-EPI Study Refit equation without the race variable for the IDMS-Traceable creatinine methods.https://jasn.asnjournals.org/content/early// N.8803342940 Performed By: #### 2 4362-6 ####DERRICK Hall ([id number])[facility] ([facility])[address] [place] [address] Glucose [Mass/Vol] 152 mg/dL High 74-99 [facility] Comment on above: Performed By: #### 2 4362-6 ####DERRICK Hall ([id number])[facility] ([facility])[address] [place] [address] Phosphate [Mass/Vol] 3.1 mg/dL Normal 2.5-4.9 [facility] Comment on above: Result Comment: MILD HEMOLYSIS DETECTED. The result may be falsely elevated due to hemolysis or other interferents. Clinical correlation is recommended. Repeat testing may be considered. Performed By: #### 2 4362-6 ####DERRICK Hall (65074)[facility] ([facility])[address] [place] [address] Potassium [Moles/Vol] 4.0 mmol/L Normal 3.5-5.3 [facility] Comment on above: Result Comment: MILD HEMOLYSIS DETECTED. The result may be falsely elevated due to hemolysis or other interferents. Clinical correlation is recommended. Repeat testing may be considered. Performed By: #### 2 4362-6 ####DERRICK Hall (93944)[facility] ([facility])[address] [place] [address] Sodium [Moles/Vol] 142 mmol/L Normal 136-145 [facility] Comment on above: Performed By: #### 2 4362-6 ####DERRICK Hall ([id number])[facility] ([facility])[address] [place] [address] Urea nitrogen [Mass/Vol] 18 mg/dL Normal 6-23 [facility] Comment on above: Performed By: #### 2 4362-6 ####DERRICK Hall ([id number])[facility] ([facility])[address] [place] [address] Albumin BCP dye [Mass/Vol] 2.9 g/dL Low 3.4-5.0 [facility] Comment on above: Performed By: #### 2 4362-6 ####DERRICK Hall ([id number])[facility] ([facility])[address] [place] [address] Anion gap [Moles/Vol] 13 mmol/L Normal 10-20 [facility] Comment on above: Performed By: #### 2 4362-6 ####DERRICK Hall ([id number])[facility] ([facility])[address] [place] [address] Calcium [Mass/Vol] 9.2 mg/dL Normal 8.6-10.6 [facility] Comment on above: Performed By: #### 2 4362-6 ####DERRICK Hall ([id number])[facility] ([facility])[address] [place] [address] Chloride [Moles/Vol] 103 mmol/L Normal 98-107 [facility] Comment on above: Performed By: #### 2 4362-6 ####DERRICK Hall (05578)[facility] ([facility])[address] [place] [address] CO2 [Moles/Vol] 28 mmol/L Normal 21-[address] [facility] Comment on above: Performed By: #### 2 4362-6 ####DERRICK Hall ([id number])[facility] ([facility])[address] [place] [address] Creatinine [Mass/Vol] 0.70 mg/dL Normal 0.50-1.05 [facility] Comment on above: Performed By: #### 2 4362-6 ####DERRICK Hall ([id number])[facility] ([facility])[address] [place] [address] GFR/1.73 sq M.predicted MDRD (S/P/Bld) [Vol rate/Area] mL/min/{1.73_m2} Normal >60 [facility] Comment on above: Result Comment: Calc ulations of estimated GFR are performed using the 2020 CKD-EPI Study Refit equation without the race variable for the IDMS-Traceable creatinine methods.https://jasn.asnjournals.org/content/early/ N.6416901597 Performed By: #### 2 4362-6 ####DERRICK Hall ([id number])[facility] ([facility])[address] [place] [address] Glucose [Mass/Vol] 183 mg/dL High 74-99 [facility] Comment on above: Performed By: #### 2 4362-6 ####DERRICK Hall ([id number])[facility] ([facility])[address] [place] [address] Phosphate [Mass/Vol] 2.9 mg/dL Normal 2.5-4.9 [facility] Comment on above: Result Comment: MILD HEMOLYSIS DETECTED. The result may be falsely elevated due to hemolysis or other interferents. Clinical correlation is recommended. Repeat testing may be considered. Performed By: #### 2 4362-6 ####DERRICK Hall ([id number])[facility] ([facility])[address] [place] [address] Potassium [Moles/Vol] 4.3 mmol/L Normal 3.5-5.3 [facility] Comment on above: Result Comment: MILD HEMOLYSIS DETECTED. The result may be falsely elevated due to hemolysis or other interferents. Clinical correlation is recommended. Repeat testing may be considered. Performed By: #### 2 4362-6 ####DERRICK Hall ([id number])[facility] ([facility])[address] [place] [address] Sodium [Moles/Vol] 140 mmol/L Normal 136-145 [facility] Comment on above: Performed By: #### 2 4362-6 ####DERRICK Hall ([id number])[facility] ([facility])[address] [place] [address] Urea nitrogen [Mass/Vol] 18 mg/dL Normal 6-23 [facility] Comment on above: Performed By: #### 2 4362-6 ####DERRICK Hall ([id number])[facility] ([facility])[address] [place] [address] XR CHEST 1 VIEWon 03-26-2025 XR CHEST 1 VIEW Normal [facility] CBC W Auto Differential pane l (Bld)on 03-25-2025 Basophils (Bld) [#/Vol] 0.03 x10*3/uL Normal 0.00-0.10 [facility] Comment on above: Performed By: #### 5 7021-8 ####DERRICK Hall ([id number])[facility] ([facility])[id number] [place] [address] Basophils/100 WBC (Bld) 0.3 % Normal 0.0-2.0 [facility] Comment on above: Performed By: #### 5 7021-8 ####DERRICK Hall ([id number])[facility] ([facility])[address] [place] [address] Eosinophils (Bld) [#/Vol] 0.11 x10*3/uL Normal 0.00-0.70 [facility] Comment on above: Performed By: #### 5 7021-8 ####DERRICK Hall ([id number])[facility] ([facility])[address] [place] [address] Eosinophils/100 WBC (Bld) 1.3 % Normal 0.0-6.0 [facility] Comment on above: Performed By: #### 5 7021-8 ####DERRICK Hall ([id number])[facility] ([facility])[address] [place] [address] Erythrocyte distribution width (RBC) [Ratio] 13.2 % Normal 11.5-14.5 [facility] Comment on above: Performed By: #### 5 7021-8 ####DERRICK Hall ([id number])[facility] ([facility])[address] [place] [address] Hematocrit (Bld) [Volume fraction] 36.7 % Normal 36.0-46.0 [facility] Comment on above: Performed By: #### 5 7021-8 ####DERRICK Hall ([id number])[facility] ([facility])[address] [place] [address] Hemoglobin (Bld) [Mass/Vol] 12.1 g/dL Normal 12.0-16.0 [facility] Comment on above: Performed By: #### 5 7021-8 ####DERRICK Hall ([id number])[facility] ([facility])[address] [place] [address] Immature granulocytes (Bld) [#/Vol] 0.05 x10*3/uL Normal 0.00-0.70 [facility] Comment on above: Performed By: #### 5 7021-8 ####DERRICK Hall ([id number])[facility] ([facility])[address] [place] [address] Immature granulocytes/100 WBC (Bld) 0.6 % Normal 0.0-0.9 [facility] Comment on above: Result Comment: Arlen ture Granulocyte Count (IG) includes promyelocytes, myelocytes and metamyelocytes but does not include bands. Percent differential counts (%) should be interpreted in the context of the absolute cell counts (cells/UL). Performed By: #### 5 7021-8 ####DERRICK Hall ([id number])[facility] ([facility])[address] [place] [address] Lymphocytes (Bld) [#/Vol] 0.84 x10*3/uL Low 1.20-4.80 [facility] Comment on above: Performed By: #### 5 7021-8 ####DERRICK Hall ([id number])[facility] ([facility])[address] [place] [address] Lymphocytes/100 WBC (Bld) 9.6 % Normal 13.0-44.0 [facility] Comment on above: Performed By: #### 5 7021-8 ####DERRICK Hall ([id number])[facility] ([facility])[address] [place] [address] MCH (RBC) [Entitic mass] 31.3 pg Normal 26.0-34.0 [facility] Comment on above: Performed By: #### 5 7021-8 ####DERRICK Hall ([id number])[facility] ([facility])[address] [place] [address] MCHC (RBC) [Mass/Vol] 33.0 g/dL Normal 32.0-36.0 [facility] Comment on above: Performed By: #### 5 7021-8 ####DERRICK Hall ([id number])[facility] ([facility])[address] [place] [address] MCV (RBC) [Entitic vol] 95 fL Normal 80-100 [facility] Comment on above: Performed By: #### 5 7021-8 ####DERRICK Hall ([id number])[facility] ([facility])[address] [place] [address] Monocytes (Bld) [#/Vol] 0.77 x10*3/uL Normal 0.10-1.00 [facility] Comment on above: Performed By: #### 5 7021-8 ####DERRICK Hall ([id number])[facility] ([facility])[address] [place] [address] Monocytes/100 WBC (Bld) 8.8 % Normal 2.0-10.0 [facility] Comment on above: Performed By: #### 5 7021-8 ####DERRICK Hall ([id number])[facility] ([facility])[address] [place] [address] Neutrophils (Bld) [#/Vol] 6.98 x10*3/uL Normal 1.20-7.70 [facility] Comment on above: Result Comment: Perc ent differential counts (%) should be interpreted in the context of the absolute cell counts (cells/uL). Performed By: #### 5 7021-8 ####DERRICK Hall ([id number])[facility] ([facility])[address] [place] [address] Neutrophils/100 WBC (Bld) 79.4 % Normal 40.0-80.0 [facility] Comment on above: Performed By: #### 5 7021-8 ####DERRICK Hall ([id number])[facility] ([facility])[address] [place] [address] Nucleated RBC/100 WBC (Bld) [Ratio] 0.0 /100 WBCs Normal 0.0-0.0 [facility] Comment on above: Performed By: #### 5 7021-8 ####DERRICK Hall ([id number])[facility] ([facility])[address] [place] [address] Platelets (Bld) [#/Vol] 171 x10*3/uL Normal 150-450 [facility] Comment on above: Performed By: #### 5 7021-8 ####DERRICK Hall ([id number])[facility] ([facility])[address] [place] [address] RBC (Bld) [#/Vol] 3.86 x10*6/uL Low 4.00-5.20 [facility] Comment on above: Performed By: #### 5 7021-8 ####DERRICK Hall ([id number])[facility] ([facility])[address] [place] [address] WBC (Bld) [#/Vol] 8.8 x10*3/uL Normal 4.4-11.3 [facility] Comment on above: Performed By: #### 5 7021-8 ####DERRICK Hall ([id number])[facility] ([facility])[address] [place] [address] ECG 12-LEADon 03-25-2025 ECG 12-LEAD Ventricular Rate 94 Atrial Rate 105 QRS Duration 132 Q-T Interval 392 QTC Calculation(Bazett) 490 R Ramsey 112 T Ramsey 105 QRS Count 15 Q Onset 220 [...] Ling ([id number]) on 03/29/2025 2:14:27 PM Normal [facility] Glucose Test strip manual (B ld) [Mass/Vol]on 03-25-2025 Glucose [Mass/Vol] 192 mg/dL High [address] [place] [address] Comment on above: Performed By: #### 2 341-6 ####DERRICK Hall ([id number])[facility] ([facility])[address] [place] [address] Glucose [Mass/Vol] 188 mg/dL High [address] [place] [address] Comment on above: Performed By: #### 2 341-6 ####DERRICK Hall ([id number])[facility] ([facility])[address] [place] [address] Glucose [Mass/Vol] 198 mg/dL High [address] [place] [address] Comment on above: Performed By: #### 2 341-6 ####DERRICK Hall ([id number])[facility] ([facility])[address] [place] [address] Glucose [Mass/Vol] 162 mg/dL High [address] [place] [address] Comment on above: Result Comment: RN N OTIFIED Performed By: #### 2 341-6 ####DERRICK Hall ([id number])[facility] ([facility])[address] [place] [address] Glucose [Mass/Vol] 129 mg/dL High [address] [place] [address] Comment on above: Result Comment: RN N OTIFIED Performed By: #### 2 341-6 ####DERRICK Hall ([id number])[facility] ([facility])[address] [place] [address] Glucose [Mass/Vol] 137 mg/dL High 74-99 [facility] Comment on above: Performed By: #### 2 341-6 ####DERRICK Hall ([id number])[facility] ([facility])[address] [place] [address] Glucose [Mass/Vol] 155 mg/dL High 74-99 [facility] Comment on above: Performed By: #### 2 341-6 ####DERRICK Hall ([id number])[facility] ([facility])[address] [place] [address] Magnesiumon 03-25-2025 Magnesium [Mass/Vol] 1.76 mg/dL Normal 1.60-2.40 [facility] Comment on above: Performed By: #### 1 9123-9 ####DERRICK Hall ([id number])[facility] ([facility])[address] [place] [address] Magnesium [Mass/Vol] 2.18 mg/dL Normal 1.60-2.40 [facility] Comment on above: Performed By: #### 1 9123-9 ####DERRICK Hall ([id number])[facility] ([facility])[address] [place] [address] Renal function 2000 panelon 03-25-2025 Albumin BCP dye [Mass/Vol] 2.8 g/dL Low 3.4-5.0 [facility] Comment on above: Performed By: #### 2 4362-6 ####DERRICK Hall ([id number])[facility] ([facility])[address] [place] [address] Anion gap [Moles/Vol] 14 mmol/L Normal 10-20 [facility] Comment on above: Performed By: #### 2 4362-6 ####DERRICK Hall ([id number])[facility] ([facility])[address] [place] [address] Calcium [Mass/Vol] 8.9 mg/dL Normal 8.6-10.6 [facility] Comment on above: Performed By: #### 2 4362-6 ####DERRICK Hall (24936)[facility] ([facility])[address] [place] [address] Chloride [Moles/Vol] 104 mmol/L Normal 98-107 [facility] Comment on above: Performed By: #### 2 4362-6 ####DERRICK Hall (12730)[facility] ([facility])[address] [place] [address] CO2 [Moles/Vol] 25 mmol/L Normal 21-[address] [facility] Comment on above: Performed By: #### 2 4362-6 ####DERRICK Hall ([id number])[facility] ([facility])[address] [place] [address] Creatinine [Mass/Vol] 0.65 mg/dL Normal 0.50-1.05 [facility] Comment on above: Performed By: #### 2 4362-6 ####DERRICK Hall ([id number])[facility] ([facility])[address] [place] [address] GFR/1.73 sq M.predicted MDRD (S/P/Bld) [Vol rate/Area] mL/min/{1.73_m2} Normal >60 [facility] Comment on above: Result Comment: Calc ulations of estimated GFR are performed using the 2020 CKD-EPI Study Refit equation without the race variable for the IDMS-Traceable creatinine methods.https://jasn.asnjournals.org/content/early// N.2814971885 Performed By: #### 2 4362-6 ####DERRICK Hall ([id number])[facility] ([facility])[address] [place] [address] Glucose [Mass/Vol] 200 mg/dL High 74-99 [facility] Comment on above: Performed By: #### 2 4362-6 ####DERRICK Hall ([id number])[facility] ([facility])[address] [place] [address] Phosphate [Mass/Vol] 2.6 mg/dL Normal 2.5-4.9 [facility] Comment on above: Performed By: #### 2 4362-6 ####DERRICK Hall ([id number])[facility] ([facility])[address] [place] [address] Potassium [Moles/Vol] 3.5 mmol/L Normal 3.5-5.3 [facility] Comment on above: Performed By: #### 2 4362-6 ####DERRICK Hall (51122)[facility] ([facility])[address] [place] [address] Sodium [Moles/Vol] 139 mmol/L Normal 136-145 [facility] Comment on above: Performed By: #### 2 4362-6 ####DERRICK Hall (56062)[facility] ([facility])[address] [place] [address] Urea nitrogen [Mass/Vol] 17 mg/dL Normal 6-23 [facility] Comment on above: Performed By: #### 2 4362-6 ####DERRICK Hall ([id number])[facility] ([facility])[address] [place] [address] Albumin BCP dye [Mass/Vol] 2.8 g/dL Low 3.4-5.0 [facility] Comment on above: Performed By: #### 2 4362-6 ####DERRICK Hall (93721)[facility] ([facility])[address] [place] [address] Anion gap [Moles/Vol] 15 mmol/L Normal 10-20 [facility] Comment on above: Performed By: #### 2 4362-6 ####DERRICK Hall (55589)[facility] ([facility])[address] [place] [address] Calcium [Mass/Vol] 9.0 mg/dL Normal 8.6-10.6 [facility] Comment on above: Performed By: #### 2 4362-6 ####DERRICK Hall ([id number])[facility] ([facility])[address] [place] [address] Chloride [Moles/Vol] 106 mmol/L Normal 98-107 [facility] Comment on above: Performed By: #### 2 4362-6 ####DERRICK Hall ([id number])[facility] ([facility])[address] [place] [address] CO2 [Moles/Vol] 23 mmol/L Normal 21-[address] [facility] Comment on above: Performed By: #### 2 4362-6 ####DERRICK Hall (40961)[facility] ([facility])[address] [place] [address] Creatinine [Mass/Vol] 0.66 mg/dL Normal 0.50-1.05 [facility] Comment on above: Performed By: #### 2 4362-6 ####DERRICK Hall ([id number])[facility] ([facility])[address] [place] [address] GFR/1.73 sq M.predicted MDRD (S/P/Bld) [Vol rate/Area] mL/min/{1.73_m2} Normal >60 [facility] Comment on above: Result Comment: Calc ulations of estimated GFR are performed using the 2020 CKD-EPI Study Refit equation without the race variable for the IDMS-Traceable creatinine methods.https://jasn.asnjournals.org/content/early/ N.8957716266 Performed By: #### 2 4362-6 ####DERRICK Hall ([id number])[facility] ([facility])[address] [place] [address] Glucose [Mass/Vol] 135 mg/dL High 74-99 [facility] Comment on above: Performed By: #### 2 4362-6 ####DERRICK ALVESTZER L ([id number])[facility] ([facility])[address] [place] [address] Phosphate [Mass/Vol] 3.5 mg/dL Normal 2.5-4.9 [facility] Comment on above: Result Comment: MILD HEMOLYSIS DETECTED. The result may be falsely elevated due to hemolysis or other interferents. Clinical correlation is recommended. Repeat testing may be considered. Performed By: #### 2 4362-6 ####DERRICK SIMER L ([id number])[facility] ([facility])[address] [place] [address] Potassium [Moles/Vol] 4.3 mmol/L Normal 3.5-5.3 [facility] Comment on above: Result Comment: MILD HEMOLYSIS DETECTED. The result may be falsely elevated due to hemolysis or other interferents. Clinical correlation is recommended. Repeat testing may be considered. Performed By: #### 2 4362-6 ####DERRICK ALVESTZER L ([id number])[facility] ([facility])[address] [place] [address] Sodium [Moles/Vol] 140 mmol/L Normal 136-145 [facility] Comment on above: Performed By: #### 2 4362-6 ####DERRICK BRAR L ([id number])[facility] ([facility])[address] [place] [address] Urea nitrogen [Mass/Vol] 20 mg/dL Normal 6-23 [facility] Comment on above: Performed By: #### 2 4362-6 ####DERRICK ALVESTZER L (88705)[facility] ([facility])[address] [place] [address] XR CHEST 1 VIEWon 03-25-2025 XR CHEST 1 VIEW Normal [facility] BRONCHOSCOPYon 03-24-2025 BRONCHOSCOPY Normal [facility] CBC W Auto Differential pane l (Bld)on 03-24-2025 Basophils (Bld) [#/Vol] 0.02 x10*3/uL Normal 0.00-0.10 [facility] Comment on above: Performed By: #### 5 7021-8 ####DERRICK Hall ([id number])[facility] ([facility])[address] [place] [address] Basophils/100 WBC (Bld) 0.2 % Normal 0.0-2.0 [facility] Comment on above: Performed By: #### 5 7021-8 ####DERRICK BRAR L ([id number])[facility] ([facility])[address] [place] [address] Eosinophils (Bld) [#/Vol] 0.20 x10*3/uL Normal 0.00-0.70 [facility] Comment on above: Performed By: #### 5 7021-8 ####DERRICK Hall ([id number])[facility] ([facility])[address] [place] [address] Eosinophils/100 WBC (Bld) 2.3 % Normal 0.0-6.0 [facility] Comment on above: Performed By: #### 5 7021-8 ####DERRICK Hall ([id number])[facility] ([facility])[address] [place] [address] Erythrocyte distribution width (RBC) [Ratio] 13.7 % Normal 11.5-14.5 [facility] Comment on above: Performed By: #### 5 7021-8 ####DERRICK Hall ([id number])[facility] ([facility])[address] [place] [address] Hematocrit (Bld) [Volume fraction] 36.2 % Normal 36.0-46.0 [facility] Comment on above: Performed By: #### 5 7021-8 ####DERRICK Hall ([id number])[facility] ([facility])[address] [place] [address] Hemoglobin (Bld) [Mass/Vol] 12.0 g/dL Normal 12.0-16.0 [facility] Comment on above: Performed By: #### 5 7021-8 ####DERRICK Hall ([id number])[facility] ([facility])[address] [place] [address] Immature granulocytes (Bld) [#/Vol] 0.02 x10*3/uL Normal 0.00-0.70 [facility] Comment on above: Performed By: #### 5 7021-8 ####DERRICK Hall ([id number])[facility] ([facility])[address] [place] [address] Immature granulocytes/100 WBC (Bld) 0.2 % Normal 0.0-0.9 [facility] Comment on above: Result Comment: Arlen ture Granulocyte Count (IG) includes promyelocytes, myelocytes and metamyelocytes but does not include bands. Percent differential counts (%) should be interpreted in the context of the absolute cell counts (cells/UL). Performed By: #### 5 7021-8 ####DERRICK Hall ([id number])[facility] ([facility])[address] [place] [address] Lymphocytes (Bld) [#/Vol] 1.02 x10*3/uL Low 1.20-4.80 [facility] Comment on above: Performed By: #### 5 7021-8 ####DERRICK Hall ([id number])[facility] ([facility])[address] [place] [address] Lymphocytes/100 WBC (Bld) 11.9 % Normal 13.0-44.0 [facility] Comment on above: Performed By: #### 5 7021-8 ####DERRICK Hall ([id number])[facility] ([facility])[address] [place] [address] MCH (RBC) [Entitic mass] 32.0 pg Normal 26.0-34.0 [facility] Comment on above: Performed By: #### 5 7021-8 ####DERRICK CHOUDHARYMOGAY L (76384)[facility] ([facility])[address] [place] [address] MCHC (RBC) [Mass/Vol] 33.1 g/dL Normal 32.0-36.0 [facility] Comment on above: Performed By: #### 5 7021-8 ####DERRICK Hall ([id number])[facility] ([facility])[address] [place] [address] MCV (RBC) [Entitic vol] 97 fL Normal 80-100 [facility] Comment on above: Performed By: #### 5 7021-8 ####DERRICK Hall ([id number])[facility] ([facility])[address] [place] [address] Monocytes (Bld) [#/Vol] 0.66 x10*3/uL Normal 0.10-1.00 [facility] Comment on above: Performed By: #### 5 7021-8 ####DERRICK Hall ([id number])[facility] ([facility])[address] [place] [address] Monocytes/100 WBC (Bld) 7.7 % Normal 2.0-10.0 [facility] Comment on above: Performed By: #### 5 7021-8 ####DERRICK Hall ([id number])[facility] ([facility])[address] [place] [address] Neutrophils (Bld) [#/Vol] 6.67 x10*3/uL Normal 1.20-7.70 [facility] Comment on above: Result Comment: Perc ent differential counts (%) should be interpreted in the context of the absolute cell counts (cells/uL). Performed By: #### 5 7021-8 ####DERRICK Hall (75902)[facility] ([facility])[address] [place] [address] Neutrophils/100 WBC (Bld) 77.7 % Normal 40.0-80.0 [facility] Comment on above: Performed By: #### 5 7021-8 ####DERRICK Hall ([id number])[facility] ([facility])[address] [place] [address] Nucleated RBC/100 WBC (Bld) [Ratio] 0.0 /100 WBCs Normal 0.0-0.0 [facility] Comment on above: Performed By: #### 5 7021-8 ####DERRICK Hall ([id number])[facility] ([facility])[address] [place] [address] Platelets (Bld) [#/Vol] 161 x10*3/uL Normal 150-450 [facility] Comment on above: Performed By: #### 5 7021-8 ####DERRICK Hall ([id number])[facility] ([facility])[address] [place] [address] RBC (Bld) [#/Vol] 3.75 x10*6/uL Low 4.00-5.20 [facility] Comment on above: Performed By: #### 5 7021-8 ####DERRICK Hall ([id number])[facility] ([facility])[address] [place] [address] WBC (Bld) [#/Vol] 8.6 x10*3/uL Normal 4.4-11.3 [facility] Comment on above: Performed By: #### 5 7021-8 ####DERRICK Hall ([id number])[facility] ([facility])[address] [place] [address] Cancer related large scale g [place] targeted mutation analysis [employer] Doc (Bld/Tiss)on 03-24-2025 ELECTRONICALLY SIGNED BY Nael Ramirez MD PhD [facility] Comment on above: Performed By: #### 7 3977-1 ####NAEL RAMIREZ ([id number]) [facility])[address] [place] [address] FOCUSED SOLID TUMOR DNA/RNA RESULTS SEE COMMENT [facility] Comment on above: Result Comment: Spec imen: Supernatant, [id number] Tumor Content: 30%MICROSATELLITE STATUS: Microsatellite Instability-High (MSI-H) is NOT DETECTED.DISEASE ASSOCIATED GENOMIC FINDINGS: CDKN2A p.E120* ([id number] c.358G>T)KRAS amplificationKRAS p.G12C (NM_[id number] c.34G>T)INTERPRETATION AND POTENTIAL THERAPEUTIC OPTIONS:KRAS p.H51AQXJ RECOMMENDATIONS (Advanced Non Small Cell Lung Cancer):adagrasib [...] analytical performance characteristics have been determined by [facility]. This test has not been cleared or approved by the FDA; however, the FDA has determined that such approval is not necessary. The [facility] is certified under the Clinical Laboratory Improvement Amendments of 1988 (CLIA-88) as qualified to perform high complexity testing.PANEL GENE LIST:Hotspot Mutations (snv, indels <30bp): AKT1, ALK, APC, ARAF, B2M, BRAF, CCND1, CDK4, CDKN2A, CREBBP, CTNNB1, EGFR, EP300, ERBB2, ERBB3, ERBB4, ESR1, FBXW7, FGFR2, FGFR3, GNA11, GNAQ, H3F3A, QPAQ2F3E, HRAS, IDH1, IDH2, JAK1, JAK2, JAK3, KEAP1, KIT, KRAS, MAP2K1, MAP2K2, MET, MTOR, NFE2L2, NRAS, PDGFRA, PIK3CA, POLE, PTEN, RET, ROS1, SMAD4, STK11, SMO, TP53, U2AF1.Copy Number Variants (gain): ALK, AR, BRAF, CCND1, CDK4, CDK6, EGFR, ERBB2, FGFR1, FGFR2, FGFR3, FGFR4, KIT, KRAS, MET, MYC, MYCN, PDGFRA, PIK3CA.Fusions (truck driver flatbed genes): ALK, BRAF, EGFR, FGFR1, FGFR2, FGFR3, MET, NTRK1, NTRK2, NTRK3, RET, ROS1, TMPRSS2.MSI Status Markers: mononucleotide repeat loci.Not all exons of all genes are sequenced. Genome assembly (hg19) was used for alignment and variant calling. Performed By: #### 7 3977-1 ####NAEL RAMIREZ ([id number]) [facility])[address] [place] [address] ECG 12-LEADon 03-24-2025 ECG 12-LEAD Ventricular Rate 86 Atrial Rate 86 P-R Interval 184 QRS Duration 124 Q-T Interval 382 QTC Calculation(Bazett) 457 P Ramsey 43 R Ramsey 103 T Ramsey 121 QRS Count 14 Q Onset 221 P Onset 129 P Offset 191 T Offset 412 QTC Fredericia 431 Diagnosis Normal sinus rhythm with sinus arrhythmia Right bundle branch block Abnormal ECG No previous ECGs available Confirmed by Roc Ling ([id number]) on 03/29/2025 2:10:30 PM Normal [facility] Glucose Test strip manual (B ld) [Mass/Vol]on 03-24-2025 Glucose [Mass/Vol] 144 mg/dL High 74-99 [facility] Comment on above: Performed By: #### 2 341-6 ####DERRICK Hall ([id number])[facility] ([facility])[address] [place] [address] Glucose [Mass/Vol] 129 mg/dL High 74-99 [facility] Comment on above: Performed By: #### 2 341-6 ####DERRICK Hall ([id number])[facility] ([facility])[address] [place] [address] Glucose [Mass/Vol] 98 mg/dL Normal 74-99 [facility] Comment on above: Result Comment: RN N OTIFIED Performed By: #### 2 341-6 ####DERRICK Hall ([id number])[facility] ([facility])[address] [place] [address] Glucose [Mass/Vol] 128 mg/dL High 74-99 [facility] Comment on above: Result Comment: RN N OTIFIED Performed By: #### 2 341-6 ####DERRICK Hall ([id number])[facility] ([facility])[address] [place] [address] Glucose [Mass/Vol] 122 mg/dL High 74-99 [facility] Comment on above: Performed By: #### 2 341-6 ####DERRICK Hall ([id number])[facility] ([facility])[address] [place] [address] Magnesiumon 03-24-2025 Magnesium [Mass/Vol] 1.89 mg/dL Normal 1.60-2.40 [facility] Comment on above: Performed By: #### 1 9123-9 ####DERRICK Hall ([id number])[facility] ([facility])[address] [place] [address] Non-replenishment associate cytology studyon Non-gynecological cytology method study Normal [facility] Renal function 2000 panelon 03-24-2025 Albumin BCP dye [Mass/Vol] 2.8 g/dL Low 3.4-5.0 [facility] Comment on above: Performed By: #### 2 4362-6 ####DERRICK Hall ([id number])[facility] ([facility])[address] [place] [address] Anion gap [Moles/Vol] 11 mmol/L Normal 10-20 [facility] Comment on above: Performed By: #### 2 4362-6 ####DERRICK Hall ([id number])[facility] ([facility])[address] [place] [address] Calcium [Mass/Vol] 8.5 mg/dL Low 8.6-10.6 [facility] Comment on above: Performed By: #### 2 4362-6 ####DERRICK Hall ([id number])[facility] ([facility])[address] [place] [address] Chloride [Moles/Vol] 110 mmol/L High 98-107 [facility] Comment on above: Performed By: #### 2 4362-6 ####DERRICK Hall ([id number])[facility] ([facility])[address] [place] [address] CO2 [Moles/Vol] 24 mmol/L Normal 21-[address] [facility] Comment on above: Performed By: #### 2 4362-6 ####DERRICK Hall ([id number])[facility] ([facility])[address] [place] [address] Creatinine [Mass/Vol] 0.63 mg/dL Normal 0.50-1.05 [facility] Comment on above: Performed By: #### 2 4362-6 ####DERRICK BRAR L ([id number])[facility] ([facility])[address] [place] [address] GFR/1.73 sq M.predicted MDRD (S/P/Bld) [Vol rate/Area] mL/min/{1.73_m2} Normal >60 [facility] Comment on above: Result Comment: Calc ulations of estimated GFR are performed using the 2020 CKD-EPI Study Refit equation without the race variable for the IDMS-Traceable creatinine methods.https://jasn.asnjournals.org/content/early/ N.5276487060 Performed By: #### 2 4362-6 ####DERRICK Hall ([id number])[facility] ([facility])[address] [place] [address] Glucose [Mass/Vol] 104 mg/dL High 74-99 [facility] Comment on above: Performed By: #### 2 4362-6 ####DERRICK Hall ([id number])[facility] ([facility])[address] [place] [address] Phosphate [Mass/Vol] 2.7 mg/dL Normal 2.5-4.9 [facility] Comment on above: Performed By: #### 2 4362-6 ####DERRICK Hall ([id number])[facility] ([facility])[address] [place] [address] Potassium [Moles/Vol] 4.0 mmol/L Normal 3.5-5.3 [facility] Comment on above: Performed By: #### 2 4362-6 ####DERRICK Hall ([id number])[facility] ([facility])[address] [place] [address] Sodium [Moles/Vol] 141 mmol/L Normal 136-145 [facility] Comment on above: Performed By: #### 2 4362-6 ####DERRICK Hall ([id number])[facility] ([facility])[address] [place] [address] Urea nitrogen [Mass/Vol] 18 mg/dL Normal 6-23 [facility] Comment on above: Performed By: #### 2 4362-6 ####DERRICK Hall ([id number])[facility] ([facility])[address] [place] [address] Surgical pathology studyon 0 - Surgical pathology study Normal [facility] Troponin I.cardiac panelon 0 - Tropinin I.cardiac panel High sensitivity method 4 ng/L Normal 0-34 [facility] Comment on above: Order Comment: Less than [...] is performed using a differenttesting methodology at [facility] than at [facility]. Direct result comparisons should onlybe made within the same method. Performed By: #### 8 9577-1 ####DERRICK Hall ([id number])[facility] ([facility])[address] [place] [address] Tropinin I.cardiac panel High sensitivity method 4 ng/L Normal 0-34 [facility] Comment on above: Order Comment: Less than [...] is performed using a differenttesting methodology at [facility] than at [facility]. Direct result comparisons should onlybe made within the same method. Performed By: #### 8 9577-1 ####DERRICK Hall ([id number])[facility] ([facility])[address] [place] [address] XR CHEST 1 VIEWon 03-24-2025 XR CHEST 1 VIEW Normal [facility] XR CHEST 1 VIEW Normal [facility] CBC W Auto Differential pane l (Bld)on 03-23-2025 Basophils (Bld) [#/Vol] 0.03 x10*3/uL Normal 0.00-0.10 [facility] Comment on above: Performed By: #### 5 7021-8 ####DERRICK Hall ([id number])[facility] ([facility])[address] [place] [address] Basophils/100 WBC (Bld) 0.2 % Normal 0.0-2.0 [facility] Comment on above: Performed By: #### 5 7021-8 ####DERRICK Hall ([id number])[facility] ([facility])[address] [place] [address] Eosinophils (Bld) [#/Vol] 0.08 x10*3/uL Normal 0.00-0.70 [facility] Comment on above: Performed By: #### 5 7021-8 ####DERRICK Hall ([id number])[facility] ([facility])[address] [place] [address] Eosinophils/100 WBC (Bld) 0.6 % Normal 0.0-6.0 [facility] Comment on above: Performed By: #### 5 7021-8 ####DERRICK Hall ([id number])[facility] ([facility])[address] [place] [address] Erythrocyte distribution width (RBC) [Ratio] 13.5 % Normal 11.5-14.5 [facility] Comment on above: Performed By: #### 5 7021-8 ####DERRICK Hall ([id number])[facility] ([facility])[address] [place] [address] Hematocrit (Bld) [Volume fraction] 39.3 % Normal 36.0-46.0 [facility] Comment on above: Performed By: #### 5 7021-8 ####DERRICK Hall ([id number])[facility] ([facility])[address] [place] [address] Hemoglobin (Bld) [Mass/Vol] 13.1 g/dL Normal 12.0-16.0 [facility] Comment on above: Performed By: #### 5 7021-8 ####DERRICK BRAR L ([id number])[facility] ([facility])[address] [place] [address] Immature granulocytes (Bld) [#/Vol] 0.07 x10*3/uL Normal 0.00-0.70 [facility] Comment on above: Performed By: #### 5 7021-8 ####DERRICK Hall ([id number])[facility] ([facility])[address] [place] [address] Immature granulocytes/100 WBC (Bld) 0.6 % Normal 0.0-0.9 [facility] Comment on above: Result Comment: Arlen ture Granulocyte Count (IG) includes promyelocytes, myelocytes and metamyelocytes but does not include bands. Percent differential counts (%) should be interpreted in the context of the absolute cell counts (cells/UL). Performed By: #### 5 7021-8 ####DERRICK Hall ([id number])[facility] ([facility])[address] [place] [address] Lymphocytes (Bld) [#/Vol] 1.43 x10*3/uL Normal 1.20-4.80 [facility] Comment on above: Performed By: #### 5 7021-8 ####DERRICK Hall ([id number])[facility] ([facility])[address] [place] [address] Lymphocytes/100 WBC (Bld) 11.4 % Normal 13.0-44.0 [facility] Comment on above: Performed By: #### 5 7021-8 ####DERRICK Hall ([id number])[facility] ([facility])[address] [place] [address] MCH (RBC) [Entitic mass] 31.6 pg Normal 26.0-34.0 [facility] Comment on above: Performed By: #### 5 7021-8 ####DERRICK Hall ([id number])[facility] ([facility])[address] [place] [address] MCHC (RBC) [Mass/Vol] 33.3 g/dL Normal 32.0-36.0 [facility] Comment on above: Performed By: #### 5 7021-8 ####DERRICK Hall ([id number])[facility] ([facility])[address] [place] [address] MCV (RBC) [Entitic vol] 95 fL Normal 80-100 [facility] Comment on above: Performed By: #### 5 7021-8 ####DERRICK Hall ([id number])[facility] ([facility])[address] [place] [address] Monocytes (Bld) [#/Vol] 0.76 x10*3/uL Normal 0.10-1.00 [facility] Comment on above: Performed By: #### 5 7021-8 ####DERRICK Hall ([id number])[facility] ([facility])[address] [place] [address] Monocytes/100 WBC (Bld) 6.0 % Normal 2.0-10.0 [facility] Comment on above: Performed By: #### 5 7021-8 ####DERRICK Hall (65698)[facility] ([facility])[address] [place] [address] Neutrophils (Bld) [#/Vol] 10.22 x10*3/uL High 1.20-7.70 [facility] Comment on above: Result Comment: Perc ent differential counts (%) should be interpreted in the context of the absolute cell counts (cells/uL). Performed By: #### 5 7021-8 ####DERRICK Hall ([id number])[facility] ([facility])[address] [place] [address] Neutrophils/100 WBC (Bld) 81.2 % Normal 40.0-80.0 [facility] Comment on above: Performed By: #### 5 7021-8 ####DERRICK Hall (48025)[facility] ([facility])[address] [place] [address] Nucleated RBC/100 WBC (Bld) [Ratio] 0.0 /100 WBCs Normal 0.0-0.0 [facility] Comment on above: Performed By: #### 5 7021-8 ####DERRICK Hall ([id number])[facility] ([facility])[address] [place] [address] Platelets (Bld) [#/Vol] 193 x10*3/uL Normal 150-450 [facility] Comment on above: Performed By: #### 5 7021-8 ####DERRICK Hall ([id number])[facility] ([facility])[address] [place] [address] RBC (Bld) [#/Vol] 4.15 x10*6/uL Normal 4.00-5.20 [facility] Comment on above: Performed By: #### 5 7021-8 ####DERRICK Hall (47266)[facility] ([facility])[address] [place] [address] WBC (Bld) [#/Vol] 12.6 x10*3/uL High 4.4-11.3 [facility] Comment on above: Performed By: #### 5 7021-8 ####DERRICK Hall (51989)[facility] ([facility])[address] [place] [address] ECG 12-LEADon 03-23-2025 ECG 12-LEAD Ventricular Rate 85 Atrial Rate 85 P-R Interval 142 QRS Duration 118 Q-T Interval 378 QTC Calculation(Bazett) 449 P Ramsey 27 R Ramsey 104 T Ramsey 102 QRS Count 14 Q Onset 221 P Onset 150 P Offset 192 T Offset 410 QTC Fredericia 424 Diagnosis Normal sinus rhythm with sinus arrhythmia Incomplete right bundle branch block Possible Right ventricular hypertrophy Septal infarct , age undetermined ST & T wave abnormality, consider anterior ischemia Abnormal ECG Confirmed by Roc Ling ([id number]) on 03/24/2025 10:28:48 AM Normal [facility] Gas and Carbon monoxide and Electrolytes panel (BldA)on 03-23-2025 Anion gap 4 (BldA) [Moles/Vol] 9 mmo/L Low 10-25 [facility] Comment on above: Performed By: #### 9 3685-6 ####DERRICK Hall ([id number])[facility] ([facility])[address] [place] [address] Base excess Calc (Bld) [Moles/Vol] -1.6000 mmol/L Normal -2.0-3.0 [facility] Comment on above: Performed By: #### 9 3685-6 ####DERRICK Hall ([id number])[facility] ([facility])[address] [place] [address] Calcium.ionized (BldA) [Moles/Vol] 1.29 mmol/L Normal 1.10-1.33 [facility] Comment on above: Performed By: #### 9 3685-6 ####DERRICK Hall ([id number])[facility] ([facility])[address] [place] [address] Chloride (BldA) [Moles/Vol] 105 mmol/L Normal 98-107 [facility] Comment on above: Performed By: #### 9 3685-6 ####DERRICK Hall ([id number])[facility] ([facility])[address] [place] [address] CO2 (Bld) [Partial pressure] 50 mm Hg High 38-42 [facility] Comment on above: Performed By: #### 9 3685-6 ####DERRICK Hall ([id number])[facility] ([facility])[address] [place] [address] Glucose [Mass/Vol] 133 mg/dL High 74-99 [facility] Comment on above: Performed By: #### 9 3685-6 ####DERRICK Hall (25014)[facility] ([facility])[address] [place] [address] HCO3 (Bld) [Moles/Vol] 25.2 mmol/L Normal 22.0-26.0 [facility] Comment on above: Performed By: #### 9 3685-6 ####DERRICK Hall (75691)[facility] ([facility])[address] [place] [address] Hematocrit Est (Bld) [Volume fraction] 40.0 % Normal 36.0-46.0 [facility] Comment on above: Performed By: #### 9 3685-6 ####DERRICK Hall ([id number])[facility] ([facility])[address] [place] [address] Hemoglobin (Bld) [Mass/Vol] 13.3 g/dL Normal 12.0-16.0 [facility] Comment on above: Performed By: #### 9 3685-6 ####DERRICK Hall (15606)[facility] ([facility])[address] [place] [address] Inhaled oxygen concentration 80 % Normal [facility] Comment on above: Performed By: #### 9 3685-6 ####DERRICK Hall ([id number])[facility] ([facility])[address] [place] [address] Lactate (BldA) [Moles/Vol] 0.7 mmol/L Normal 0.4-2.0 [facility] Comment on above: Performed By: #### 9 3685-6 ####DERRICK Hall (17294)[facility] ([facility])[address] [place] [address] Oxygen (Bld) [Partial pressure] 62 mm Hg Low 85-95 [facility] Comment on above: Performed By: #### 9 3685-6 ####DERRICK Hall ([id number])[facility] ([facility])[address] [place] [address] Oxyhemoglobin (BldA) [Mass fraction] 90.5 % Low 94.0-98.0 [facility] Comment on above: Performed By: #### 9 3685-6 ####DERRICK Hall ([id number])[facility] ([facility])[address] [place] [address] pH (Bld) 7.31 [pH] Low 7.38-7.42 [facility] Comment on above: Performed By: #### 9 3685-6 ####DERRICK Hall ([id number])[facility] ([facility])[address] [place] [address] Potassium (BldA) [Moles/Vol] 3.9 mmol/L Normal 3.5-5.3 [facility] Comment on above: Performed By: #### 9 3685-6 ####DERRICK Hall ([id number])[facility] ([facility])[address] [place] [address] Sodium (BldA) [Moles/Vol] 135 mmol/L Low 136-145 [facility] Comment on above: Performed By: #### 9 3685-6 ####DERRICK Hall (82619)[facility] ([facility])[address] [place] [address] Glucose Test strip manual (B ld) [Mass/Vol]on 03-23-2025 Glucose [Mass/Vol] 113 mg/dL High 74-99 [facility] Comment on above: Performed By: #### 2 341-6 ####DERRICK Hall (40376)[facility] ([facility])[address] [place] [address] Glucose [Mass/Vol] 119 mg/dL High 74-99 [facility] Comment on above: Performed By: #### 2 341-6 ####DERRICK Hall (21030)[facility] ([facility])[address] [place] [address] Glucose [Mass/Vol] 113 mg/dL High 74-99 [facility] Comment on above: Performed By: #### 2 341-6 ####DERRICK Hall (30704)[facility] ([facility])[address] [place] [address] Glucose [Mass/Vol] 113 mg/dL High 74-99 [facility] Comment on above: Result Comment: RN N OTIFIED Performed By: #### 2 341-6 ####DERRICK Hall (24743)[facility] ([facility])[address] [place] [address] Glucose [Mass/Vol] 135 mg/dL High 74-99 [facility] Comment on above: Result Comment: RN N OTIFIED Performed By: #### 2 341-6 ####DERRICK Hall ([id number])[facility] ([facility])[address] [place] [address] Glucose [Mass/Vol] 133 mg/dL High -99 [facility] Comment on above: Performed By: #### 2 341-6 ####DERRICK Hall ([id number])[facility] ([facility])[address] [place] [address] Magnesiumon 03-23-2025 Magnesium [Mass/Vol] 2.27 mg/dL Normal 1.60-2.40 [facility] Comment on above: Performed By: #### 1 9123-9 ####DERRICK Hall (25799)[facility] ([facility])[address] [place] [address] Renal function 2000 panelon 03-23-2025 Albumin BCP dye [Mass/Vol] 3.2 g/dL Low 3.4-5.0 [facility] Comment on above: Performed By: #### 2 4362-6 ####DERRICK Hall (98686)[facility] ([facility])[address] [place] [address] Anion gap [Moles/Vol] 12 mmol/L Normal 10-20 [facility] Comment on above: Performed By: #### 2 4362-6 ####DERRICK Hall (37365)[facility] ([facility])[address] [place] [address] Calcium [Mass/Vol] 9.6 mg/dL Normal 8.6-10.6 [facility] Comment on above: Performed By: #### 2 4362-6 ####DERRICK Hall ([id number])[facility] ([facility])[address] [place] [address] Chloride [Moles/Vol] 107 mmol/L Normal 98-107 [facility] Comment on above: Performed By: #### 2 4362-6 ####DERRICK Hall ([id number])[facility] ([facility])[address] [place] [address] CO2 [Moles/Vol] 26 mmol/L Normal 21-[address] [facility] Comment on above: Performed By: #### 2 4362-6 ####DERRICK Hall (65960)[facility] ([facility])[address] [place] [address] Creatinine [Mass/Vol] 0.75 mg/dL Normal 0.50-1.05 [facility] Comment on above: Performed By: #### 2 4362-6 ####DERRICK Hall ([id number])[facility] ([facility])[address] [place] [address] Glomerular filtration rate/1.73 sq M.predicted 90 mL/min/1.73m*2 Normal >60 [facility] Comment on above: Result Comment: Calc ulations of estimated GFR are performed using the 2020 CKD-EPI Study Refit equation without the race variable for the IDMS-Traceable creatinine methods.https://jasn.asnjournals.org/content// N.0512842650 Performed By: #### 2 4362-6 ####DERRICK Hall (67222)[facility] ([facility])[address] [place] [address] Glucose [Mass/Vol] 118 mg/dL High 74-99 [facility] Comment on above: Performed By: #### 2 4362-6 ####DERRICK BRAR L ([id number])[facility] ([facility])[address] [place] [address] Phosphate [Mass/Vol] 3.0 mg/dL Normal 2.5-4.9 [facility] Comment on above: Result Comment: MILD HEMOLYSIS DETECTED. The result may be falsely elevated due to hemolysis or other interferents. Clinical correlation is recommended. Repeat testing may be considered. Performed By: #### 2 4362-6 ####DERRICK Hall ([id number])[facility] ([facility])[address] [place] [address] Potassium [Moles/Vol] 4.5 mmol/L Normal 3.5-5.3 [facility] Comment on above: Result Comment: MILD HEMOLYSIS DETECTED. The result may be falsely elevated due to hemolysis or other interferents. Clinical correlation is recommended. Repeat testing may be considered. Performed By: #### 2 4362-6 ####DERRICK Hall ([id number])[facility] ([facility])[address] [place] [address] Sodium [Moles/Vol] 140 mmol/L Normal 136-145 [facility] Comment on above: Performed By: #### 2 4362-6 ####DERRICK Hall ([id number])[facility] ([facility])[address] [place] [address] Urea nitrogen [Mass/Vol] 19 mg/dL Normal 6-23 [facility] Comment on above: Performed By: #### 2 4362-6 ####EDRRICK BRAR L ([id number])[facility] ([facility])[address] [place] [address] XR CHEST 1 VIEWon 03-23-2025 XR CHEST 1 VIEW Normal [facility] Bacteria identifiedon 2024 Bacteria identified Respiratory culture Nom (Unsp spec) Abnormal [facility] Comment on above: Performed By: #### 3 2355-0 ####DERRICK Hall ([id number])[facility] [facility] ([facility])[address] [facility] [place] [address] Bacteria identified Cx Nom (Bld) [facility] Comment on above: Performed By: #### 6 00-7 ####DERRICK Hall ([id number])[facility] ([facility])[address] [facility] [place] [address] Bacteria identified Cx Nom (Bld) [facility] Comment on above: Performed By: #### 6 00-7 ####DERRICK Hall ([id number])[facility] ([facility])[address] [place] [address], [place] [address] Blood type and Indirect anti body screen panel (Bld)on 03-22-2025 ABO group Nom (Bld) A Normal [facility] Comment on above: Performed By: #### 3 4532-2 ####DERRICK Hall ([id number])[facility] ([facility])[address] [place] [address] Blood group antibody screen Ql Negative [facility] Comment on above: Performed By: #### 3 4532-2 ####DERRICK Hall ([id number])[facility] ([facility])[address] [place] [address] D Ag Ql (Bld) Positive [facility] Comment on above: Performed By: #### 3 4532-2 ####DERRICK Hall ([id number])[facility] ([facility])[address] [place] [address] [place] [address] CBC W Auto Differential pane l (Bld)on 03-22-2025 Basophils (Bld) [#/Vol] 0.01 x10*3/uL Normal 0.00-0.10 [facility] Comment on above: Performed By: #### 5 7021-8 ####DERRICK Hall ([id number])[facility] ([facility])[address] [facility] [place] [address] Basophils/100 WBC (Bld) 0.1 % Normal 0.0-2.0 [facility] Comment on above: Performed By: #### 5 7021-8 ####DERRICK Hall ([id number])[facility] ([facility])[address] [place] [address] Eosinophils (Bld) [#/Vol] 0.00 x10*3/uL Normal 0.00-0.70 [facility] Comment on above: Performed By: #### 5 7021-8 ####DERRICK Hall ([id number])[facility] ([facility])[address] [place] [address] Eosinophils/100 WBC (Bld) 0.0 % Normal 0.0-6.0 [facility] Comment on above: Performed By: #### 5 7021-8 ####DERRICK Hall ([id number])[facility] ([facility])[address] [place] [address] Erythrocyte distribution width (RBC) [Ratio] 13.3 % Normal 11.5-14.5 [facility] Comment on above: Performed By: #### 5 7021-8 ####DERRICK Hall ([id number])[facility] ([facility])[address] [place] [address] Hematocrit (Bld) [Volume fraction] 44.2 % Normal 36.0-46.0 [facility] Comment on above: Performed By: #### 5 7021-8 ####DERRICK Hall ([id number])[facility] ([facility])[address] [place] [address] Hemoglobin (Bld) [Mass/Vol] 13.7 g/dL Normal 12.0-16.0 [facility] Comment on above: Performed By: #### 5 7021-8 ####DERRICK Hall ([id number])[facility] ([facility])[address] [place] [address] Immature granulocytes (Bld) [#/Vol] 0.14 x10*3/uL Normal 0.00-0.70 [facility] Comment on above: Performed By: #### 5 7021-8 ####DERRICK Hall ([id number])[facility] ([facility])[address] [place] [address] Immature granulocytes/100 WBC (Bld) 0.9 % Normal 0.0-0.9 [facility] Comment on above: Result Comment: Arlen ture Granulocyte Count (IG) includes promyelocytes, myelocytes and metamyelocytes but does not include bands. Percent differential counts (%) should be interpreted in the context of the absolute cell counts (cells/UL). Performed By: #### 5 7021-8 ####DERRICK Hall ([id number])[facility] ([facility])[address] [place] [address] Lymphocytes (Bld) [#/Vol] 0.73 x10*3/uL Low 1.20-4.80 [facility] Comment on above: Performed By: #### 5 7021-8 ####DERRICK BRAR L ([id number])[facility] ([facility])[address] [place] [address] Lymphocytes/100 WBC (Bld) 4.7 % Normal 13.0-44.0 [facility] Comment on above: Performed By: #### 5 7021-8 ####DERRICK CHOUDHARYMOGAY L ([id number])[facility] ([facility])[address] [place] [address] MCH (RBC) [Entitic mass] 31.7 pg Normal 26.0-34.0 [facility] Comment on above: Performed By: #### 5 7021-8 ####DERRICK CHOUDHARYMOGAY L (85602)[facility] ([facility])[address] [place] [address] MCHC (RBC) [Mass/Vol] 31.0 g/dL Low 32.0-36.0 [facility] Comment on above: Performed By: #### 5 7021-8 ####DERRICK CHOUDHARYMOTZER L (67191)[facility] ([facility])[address] [place] [address] MCV (RBC) [Entitic vol] 102 fL High 80-100 [facility] Comment on above: Performed By: #### 5 7021-8 ####DERRICK CHOUDHARYMOTZER L ([id number])[facility] ([facility])[address] [place] [address] Monocytes (Bld) [#/Vol] 0.21 x10*3/uL Normal 0.10-1.00 [facility] Comment on above: Performed By: #### 5 7021-8 ####DERRICK CHOUDHARYMOTZER L ([id number])[facility] ([facility])[address] [place] [address] Monocytes/100 WBC (Bld) 1.3 % Normal 2.0-10.0 [facility] Comment on above: Performed By: #### 5 7021-8 ####DERRICK CHOUDHARYMOTZER L ([id number])[facility] ([facility])[address] [place] [address] Neutrophils (Bld) [#/Vol] 14.60 x10*3/uL High 1.20-7.70 [facility] Comment on above: Result Comment: Perc ent differential counts (%) should be interpreted in the context of the absolute cell counts (cells/uL). Performed By: #### 5 7021-8 ####DERRICK ALVESTZCARIDAD L ([id number])[facility] ([facility])[address] [place] [address] Neutrophils/100 WBC (Bld) 93.0 % Normal 40.0-80.0 [facility] Comment on above: Performed By: #### 5 7021-8 ####DERRICK CHOUDHARYMOTZER L ([id number])[facility] ([facility])[address] [place] [address] Nucleated RBC/100 WBC (Bld) [Ratio] 0.0 /100 WBCs Normal 0.0-0.0 [facility] Comment on above: Performed By: #### 5 7021-8 ####DERRICK CHOUDHARYMOKYER L ([id number])[facility] ([facility])[address] [place] [address] Platelets (Bld) [#/Vol] 222 x10*3/uL Normal 150-450 [facility] Comment on above: Performed By: #### 5 7021-8 ####DERRICK Hall ([id number])[facility] ([facility])[address] [place] [address] RBC (Bld) [#/Vol] 4.32 x10*6/uL Normal 4.00-5.20 [facility] Comment on above: Performed By: #### 5 7021-8 ####DERRICK Hall ([id number])[facility] ([facility])[address] [place] [address] WBC (Bld) [#/Vol] 15.7 x10*3/uL High 4.4-11.3 [facility] Comment on above: Performed By: #### 5 7021-8 ####DERRICK Hall ([id number])[facility] ([facility])[address] [place] [address] Comprehensive metabolic 2000 panelon 03-22-2025 Albumin BCP dye [Mass/Vol] 3.5 g/dL Normal 3.4-5.0 [facility] Comment on above: Performed By: #### 2 4323-8 ####DERRICK Hall ([id number])[facility] ([facility])[address] [place] [address] ALP [Catalytic activity/Vol] 70 U/L Normal 33-136 [facility] Comment on above: Performed By: #### 2 4323-8 ####DERRICK Hall ([id number])[facility] ([facility])[address] [place] [address] ALT With P-5'-P [Catalytic activity/Vol] 8 U/L Normal 7-45 [facility] Comment on above: Result Comment: Meliza ents treated with Sulfasalazine may generate falsely decreased results for ALT. Performed By: #### 2 4323-8 ####DERRICK Hall ([id number])[facility] ([facility])[address] [place] [address] Anion gap [Moles/Vol] 16 mmol/L Normal 10-20 [facility] Comment on above: Performed By: #### 2 4323-8 ####DERRICK Hall ([id number])[facility] ([facility])[address] [place] [address] AST With P-5'-P [Catalytic activity/Vol] 9 U/L Normal 9-39 [facility] Comment on above: Result Comment: MILD HEMOLYSIS DETECTED. The result may be falsely elevated due to hemolysis or other interferents. Clinical correlation is recommended. Repeat testing may be considered. Performed By: #### 2 4323-8 ####DERRICK Hall ([id number])[facility] ([facility])[address] [place] [address] Bilirubin [Mass/Vol] 0.5 mg/dL Normal 0.0-1.2 [facility] Comment on above: Performed By: #### 2 4323-8 ####DERRICK Hall ([id number])[facility] ([facility])[address] [place] [address] Calcium [Mass/Vol] 8.9 mg/dL Normal 8.6-10.6 [facility] Comment on above: Performed By: #### 2 4323-8 ####DERRICK Hall ([id number])[facility] ([facility])[address] [place] [address] Chloride [Moles/Vol] 104 mmol/L Normal 98-107 [facility] Comment on above: Performed By: #### 2 4323-8 ####DERRICK Hall (59271)[facility] ([facility])[address] [place] [address] CO2 [Moles/Vol] 20 mmol/L Low 21-[address] [facility] Comment on above: Performed By: #### 2 4323-8 ####DERRICK Hall ([id number])[facility] ([facility])[address] [place] [address] Creatinine [Mass/Vol] 0.77 mg/dL Normal 0.50-1.05 [facility] Comment on above: Performed By: #### 2 4323-8 ####DERRICK Hall ([id number])[facility] ([facility])[address] [place] [address] Glomerular filtration rate/1.73 sq M.predicted 87 mL/min/1.73m*2 Normal >60 [facility] Comment on above: Result Comment: Calc ulations of estimated GFR are performed using the 2020 CKD-EPI Study Refit equation without the race variable for the IDMS-Traceable creatinine methods.https://jasn.asnjournals.org/content/early// N.2989492831 Performed By: #### 2 4323-8 ####DERRICK Hall ([id number])[facility] ([facility])[address] [place] [address] Glucose [Mass/Vol] 235 mg/dL High 74-99 [facility] Comment on above: Performed By: #### 2 4323-8 ####DERRICK Hall ([id number])[facility] ([facility])[address] [place] [address] Potassium [Moles/Vol] 4.1 mmol/L Normal 3.5-5.3 [facility] Comment on above: Result Comment: MILD HEMOLYSIS DETECTED. The result may be falsely elevated due to hemolysis or other interferents. Clinical correlation is recommended. Repeat testing may be considered. Performed By: #### 2 4323-8 ####DERRICK Hall ([id number])[facility] ([facility])[address] [place] [address] Protein [Mass/Vol] 5.8 g/dL Low 6.4-8.2 [facility] Comment on above: Performed By: #### 2 4323-8 ####DERRICK Hall ([id number])[facility] ([facility])[address] [place] [address] Sodium [Moles/Vol] 136 mmol/L Normal 136-145 [facility] Comment on above: Performed By: #### 2 4323-8 ####DERRICK Hall ([id number])[facility] ([facility])[address] [place] [address] Urea nitrogen [Mass/Vol] 19 mg/dL Normal 6-23 [facility] Comment on above: Performed By: #### 2 4323-8 ####DERRICK Hall ([id number])[facility] ([facility])[address] [place] [address] Glucose Test strip manual (B ld) [Mass/Vol]on 03-22-2025 Glucose [Mass/Vol] 161 mg/dL High 74-99 [facility] Comment on above: Performed By: #### 2 341-6 ####DERRICK Hall ([id number])[facility] ([facility])[address] [place] [address] Glucose [Mass/Vol] 148 mg/dL High 74-99 [facility] Comment on above: Performed By: #### 2 341-6 ####DERRICK Hall ([id number])[facility] ([facility])[address] [place] [address] Glucose [Mass/Vol] 182 mg/dL High -99 [facility] Comment on above: Performed By: #### 2 341-6 ####DERRICK Hall (77592)[facility] ([facility])[address] [place] [address] Glucose [Mass/Vol] 221 mg/dL High 74-99 [facility] Comment on above: Result Comment: CHARLES SANDOVAL Performed By: #### 2 341-6 ####DERRICK Hall ([id number])[facility] ([facility])[address] [place] [address] Glucose [Mass/Vol] 248 mg/dL High -99 [facility] Comment on above: Result Comment: RN N OTIFIED Performed By: #### 2 341-6 ####DERRICK Hall ([id number])[facility] ([facility])[address] [place] [address] HbA1c (Bld) [Mass fraction]o n 03-22-2025 Average glucose Estimated from glycated hemoglobin (Bld) [Mass/Vol] 143 mg/dL Normal Not Established [facility] Comment on above: Order Comment: Diagn osis of Drcpgulr-AvmlnmXbs-Zafshhbv: < or = 5.6%Increased risk for developing diabetes: 5.7-6.4%Diagnostic of diabetes: > or = 6.5% Performed By: #### 4 548-4 ####DERRICK Hall ([id number])[facility] ([facility])[address] [place] [address] Hemoglobin A1c/Hemoglobin.to fernandez 03-22-2025 HbA1c (Bld) [Mass fraction] 6.6 % High See comment [facility] Comment on above: Order Comment: Diagn osis of Rifrtycl-HnrhbsXkb-Stsyqzgh: < or = 5.6%Increased risk for developing diabetes: 5.7-6.4%Diagnostic of diabetes: > or = 6.5% Performed By: #### 4 548-4 ####DERRICK Hall ([id number])[facility] ([facility])[address] [place] [address] Lactateon 03-22-2025 Lactate [Moles/Vol] 2.0 mmol/L Normal 0.4-2.0 [facility] Comment on above: Order Comment: Venip uncture immediately after or during the administration of Metamizole may lead to falsely low results. Testing should be performed immediately prior to Metamizole dosing. Performed By: #### 2 524-7 ####DERRICK Hall ([id number])[facility] ([facility])[address] [place] [address] Legionella sp Agon Legionella sp Ag Ql (U) Negative Normal Negative [facility] Comment on above: Performed By: #### 3 2781-7 ####DERRICK Hall ([id number])[facility] ([facility])[address] [place] [address] Magnesiumon 03-22-2025 Magnesium [Mass/Vol] 2.22 mg/dL Normal 1.60-2.40 [facility] Comment on above: Result Comment: MILD LIPEMIA DETECTED. The result may be falsely elevated due to lipemia or other interferents. Clinical correlation is recommended. Repeat testing may be considered. Performed By: #### 1 9123-9 ####DERRICK Hall (60642)[facility] ([facility])[address] [place] [address] Natriuretic peptide B [Mass/ Vol]on 03-22-2025 Natriuretic peptide B (Bld) [Mass/Vol] 117 pg/mL High 0-99 [facility] Comment on above: Order Comment: <100 pg/mL - Heart failure aszmepyp925-801 pg/mL - Intermediate probability of acute heart [...] Performed By: #### 3 0934-4 ####DERRICK Hall ([id number])[facility] ([facility])[address] [place] [address] PT and aPTT panel Coag (PPP) on 03-22-2025 aPTT Coag (PPP) [Time] 23 s Low 26-36 [facility] Comment on above: Order Comment: The A PTT is no longer used for monitoring Unfractionated Heparin Therapy. For monitoring Heparin Therapy, use the Heparin Assay. Performed By: #### 3 4529-8 ####DERRICK Hall ([id number])[facility] ([facility])[address] [place] [address] INR Coag (PPP) [Relative time] 1.1 Normal 0.9-1.1 [facility] Comment on above: Order Comment: The A PTT is no longer used for monitoring Unfractionated Heparin Therapy. For monitoring Heparin Therapy, use the Heparin Assay. Performed By: #### 3 4529-8 ####DERRICK Hall ([id number])[facility] ([facility])[address] [place] [address] PT Coag (PPP) [Time] 12.0 s Normal 9.8-12.4 [facility] Comment on above: Order Comment: The A PTT is no longer used for monitoring Unfractionated Heparin Therapy. For monitoring Heparin Therapy, use the Heparin Assay. Performed By: #### 3 4529-8 ####DERRICK Hall ([id number])[facility] ([facility])[address] [place] [address] Phosphateon 03-22-2025 Phosphate [Mass/Vol] 4.3 mg/dL Normal 2.5-4.9 [facility] Comment on above: Result Comment: MILD HEMOLYSIS DETECTED. The result may be falsely elevated due to hemolysis or other interferents. Clinical correlation is recommended. Repeat testing may be considered. Performed By: #### 2 777-1 ####DERRICK Hall ([id number])[facility] ([facility])[address] [place] [address] Streptococcus pneumoniae Ago n 03-22-2025 S. pneumoniae Ag Ql (U) Negative Normal Negative [facility] Comment on above: Performed By: #### 2 4027-5 ####DERRICK Hall ([id number])[facility] ([facility])[address] [place] [address] TRANSTHORACIC ECHO (TTE) COM PLETEon 03-22-2025 TRANSTHORACIC ECHO (TTE) COMPLETE Normal [facility] Urinalysis complete W Reflex Culture panel (U)on 03-22-2025 Appearance (U) Clear Normal Clear [facility] Comment on above: Order Comment: OVER is reported when the result is greater than the clinically reportable range. Performed By: #### 5 8077-9 ####DERRICK Hall ([id number])[facility] ([facility])[address] [place] [address] [place] [address] Bacteria Auto (Urine sed) [#/Area] 2+ /HPF Abnormal NONE SEEN [facility] Comment on above: Performed By: #### 5 8077-9 ####DERRICK Hall ([id number])[facility] ([facility])[address] [place] [address] Bilirubin (U) [Mass/Vol] Negative Normal NEGATIVE [facility] Comment on above: Order Comment: OVER is reported when the result is greater than the clinically reportable range. Performed By: #### 5 8077-9 ####DERRICK Hall ([id number])[facility] ([facility])[address] [place] [address] Color (U) Light-Yellow Normal Light-Yellow , Yellow, Dark-Yellow [facility] Comment on above: Order Comment: OVER is reported when the result is greater than the clinically reportable range. Performed By: #### 5 8077-9 ####DERRICK Hall ([id number])[facility] ([facility])[address] [place] [address] Epithelial cells.squamous Auto (Urine sed) [#/Area] 1-9 (SPARSE) Normal Reference range not established. [facility] Comment on above: Performed By: #### 5 8077-9 ####DERRICK Hall ([id number])[facility] ([facility])[address] [place] [address] Glucose Auto test strip (U) [Mass/Vol] OVER (4+) Abnormal Normal [facility] Comment on above: Order Comment: OVER is reported when the result is greater than the clinically reportable range. Performed By: #### 5 8077-9 ####DERRICK Hall ([id number])[facility] ([facility])[address] [place] [address] Ketones (U) [Mass/Vol] 10 (1+) Abnormal NEGATIVE [facility] Comment on above: Order Comment: OVER is reported when the result is greater than the clinically reportable range. Performed By: #### 5 8077-9 ####DERRICK SIMER L ([id number])[facility] ([facility])[address] [facility] [place] [address] Leukocyte esterase Auto test strip Ql (U) Negative Normal NEGATIVE [facility] Comment on above: Order Comment: OVER is reported when the result is greater than the clinically reportable range. Performed By: #### 5 8077-9 ####DERRICK CHOUDHARYMOTZER L (75349)[facility] ([facility])[address] [place] [address] Mucus Auto (Urine sed) [#/Area] FEW Normal Reference range not established. [facility] Comment on above: Performed By: #### 5 8077-9 ####DERRICK SIMER L ([id number])[facility] ([facility])[address] [place] [address] Nitrite Auto test strip Ql (U) Negative Normal NEGATIVE [facility] Comment on above: Order Comment: OVER is reported when the result is greater than the clinically reportable range. Performed By: #### 5 8077-9 ####DERRICK CHOUDHARYMOTZER L ([id number])[facility] ([facility])[address] [place] [address] pH (U) 6.0 [pH] Normal 5.0, 5.5, 6.0, 6.5, 7.0, 7.5, 8.0 [facility] Comment on above: Order Comment: OVER is reported when the result is greater than the clinically reportable range. Performed By: #### 5 8077-9 ####DERRICK CHOUDHARYMOTZER L ([id number])[facility] ([facility])[address] [place] [address] Protein (U) [Mass/Vol] 10 (TRACE) Normal NEGATIVE, 10 (TRACE), 20 (TRACE) [facility] Comment on above: Order Comment: OVER is reported when the result is greater than the clinically reportable range. Performed By: #### 5 8077-9 ####DERRICK SCHMOTZER L ([id number])[facility] ([facility])[address] [facility] [place] [address] RBC (U) [#/Vol] Negative Normal NEGATIVE [facility] Comment on above: Order Comment: OVER is reported when the result is greater than the clinically reportable range. Performed By: #### 5 8077-9 ####DERRICK Hall ([id number])[facility] ([facility])[address] [place] [address] RBC Auto (Urine sed) [#/Area] 3-5 Normal NONE, 1-2, 3-5 [facility] Comment on above: Performed By: #### 5 8077-9 ####DERRICK Hall ([id number])[facility] ([facility])[address] [place] [address] Specific gravity (U) [Rel density] >1.030 Normal 1.005-1.035 [facility] Comment on above: Order Comment: OVER is reported when the result is greater than the clinically reportable range. Performed By: #### 5 8077-9 ####DERRICK Hall ([id number])[facility] ([facility])[address] [place] [address] Urobilinogen (U) [Mass/Vol] Normal Normal Normal [facility] Comment on above: Order Comment: OVER is reported when the result is greater than the clinically reportable range. Performed By: #### 5 8077-9 ####DERRICK Hall ([id number])[facility] ([facility])[address] [place] [address] WBC Auto (Urine sed) [#/Area] NONE Normal 1-5, NONE [facility] Comment on above: Performed By: #### 5 [id number] ####DERRICK Hall ([id number])[facility] ([facility])[address] [place] [address] XR ABDOMEN 1 VIEWon 03-22-20 XR ABDOMEN 1 VIEW Normal [facility] XR CHEST 1 VIEWon 03-22-2025 XR CHEST 1 VIEW Normal [facility] Office Visiton 02-09-2025 Follow-up visit [id number] Chung Dubose 1960 F Date Provider Department Center 02/09/2025 DANII BRANDT DEMETRIS [facility] Family History Problem Relation Age of Onset Diabetes Mother Atrial fibrillation Mother Hyperlipidemia Mother Kidney disease Sister Heart attack Maternal Grandmother Stroke Maternal Grandmother Family Status - Relation Status Age at Mother Alive Father Alive Sister Maternal Grandmother Level of Service:07327 [place] OFFICE/OUTPATIENT NEW MODERATE MDM 45 MINUTES Normal [facility] Office Visiton 12-04-2024 Follow-up visit [id number] Chung Dubose 1960 F Date Provider Department Center 12/04/2024 JUSTINE NOLAN DEMET[facility] Family History Problem Relation Age of Onset Diabetes Mother Atrial fibrillation Mother Hyperlipidemia Mother Kidney disease Sister Heart attack Maternal Grandmother Stroke Maternal Grandmother Family Status - Relation Status Age at Mother Sister Maternal Grandmother Level of Service:51599 [place] OFFICE/OUTPATIENT ESTABLISHED MOD MDM 30 MIN Normal [facility] Non-Sales Force Developer Cytology Reporton Non-Sales [place] [address]- Non-Sales Force Developer Cytology Report Collected Date/Time: 09/24/2024 15:00 EST Pathologist: Sagar HO PhD, Chi Hall Received Date/Time: 09/25/2024 07:07 EST SHANNAN HO, Benjy JOHNSON MD, Benjy Virgen Non-Sales Force Developer Cytology Report - 09/29/2024 11:37 EST - [...] CytoLyt solution added, sent for processing. (DC) DC:[facility] Microscopic Description Microscopic examination performed unless gross only specified. Normal [facility] Comment on above: Performed By: #### 4 [id number] #### [facility] [address] [place] [address] Main OR Intraoperative Recor don 09-28-2024 Main OR Intraoperative Record Main OR Intraoperative Record IntraOp Document Type FT Summary Primary Physician: Benjy JOHNSON MD Finalized Date/Time: 09/28/24 10:46:18 Pt. Name: DORA DUBOSENITIN Patrick /Sex: 1960 Female Med Rec #: [id number] Physician: Benjy JOHNSON MD Financial #: [id number] Pt. Type: A Room/Bed: [place] [address] Admit/Disch: 09/24/24 11:19:24 - 09/24/24 16:35:00 Institution: [...] 2 Entry 3 Case Attendee Omar LEDEZMA, LABEL DRIER, Queen SHANNAN HO, James Diggs Role Performed LABEL DRIER Surgeon - Primary Custom Bike Builder - Primary Time In 09/24/24 14:13:00 09/24/24 14:13:00 09/24/24 14:13:00 Time Out 09/24/24 14:53:00 09/24/24 14:47:00 09/24/24 14:53:00 Procedure CYSTOSCOPY RETROGRADE CYSTOSCOPY RETROGRADE CYSTOSCOPY RETROGRADE PYELOGRAM(Bilateral) PYELOGRAM(Bilateral) PYELOGRAM(Bilateral) Comments dr bhakta supervising Last Modified By: James Johnson Terry T Sweene, Terry T 09/24/24 15:16:16 09/24/24 15:16:16 09/24/24 15:16:16 Entry 4 Entry 5 Case Attendee Yari Ruiz RT(R), Lizz R Role Performed Scrub - Primary Equalizer Operator Time In 09/24/24 14:13:00 09/24/24 14:13:00 Time [...] Time Out Omar LEDEZMA, BUZZ, Queen Autumn Mack, Benjy JOHNSON MD, James Johnson, Yari Ruiz [...] and tissue Entry 1 Skin Integrity Intact, [place], Warm, & Skin Abnormality No Dry Outcomes [...] signs an (more content not included)... Normal [facility] XR Urography Retrograde Bila lili 09-25-2024 XR [...] mGy = 14.60 DAP = 1108.78 Normal [facility] CHEMISTRYOrdered By: Lab ROP User on 09-24-2024 Glucose [Mass/Vol] 147 mg/dL High 55 - 99 mg/dL [facility] POC Subsection Comment on above: Result Comment: Martinez edgar RN/ POC Username SHAAN WEAVER Invalid Interpretation Code [facility] POC Subsection Sodium [Moles/Vol] 308310789103 mmol/L Invalid Interpretation Code [facility] POC Subsection Sodium [Moles/Vol] 421403171 mmol/L Invalid Interpretation Code [facility] POC Subsection Capillary Glucose POCon 09-09 Glucose [Mass/Vol] 147 mg/dL High 55-99 [facility] Comment on above: Result Comment: Martinez RAPP Performed By: #### 2 [id number] #### [facility] [address] [place] [address] Discharge Instructionson Discharge Instructions Discharge Instructions MELISSA DUBOSE Celina :1960 Visit Date:09/24/2024 Inpatient Discharge Instructions Your Care Team Admitting Physician - Benjy JOHNSON MD Referring Physician - Benjy JOHNSON MD Reason for Your Visit GROSS HEMATURIA, ADRENAL MASS Tests Performed Pathology Non-Sales Force Developer Cytology Exam -- Results Pending -- XR [...] the pharmacy. Have a great day. Where: [facility] [address]- Business (1) Medications What How Much When Instructions Next Dose New sulfamethoxazole-trimethop rim (Bactrim D.S. 800 mg-160 mg Tab) 1 Tablets By Mouth 2 times a day Pickup at [facility] Changed metoprolol (metoprolol succinate 50 mg [...] TABLETS BY MOUTH AT BEDTIME Pharmacy Information [facility]: [address] [place], [place] [id number] [phone] Allergies No Known Allergies Problems Ongoing - Any problem that you ar (more content not included)... Normal [facility] Comment on above: Result Comment: Elec tronically Signed By: Kym White RN\.patience\Date and Time Signed: 09/24/24 15:15 EST Inpatient Patient Summaryon 09-24-2024 Inpatient Patient Summary Inpatient Patient Summary [address] [address] [facility] Clinical Discharge Instructions PERSON INFORMATION Name: MELISSA DUBOSE [facility]#:[id number] PHYSICIANS Admitting Physician: Benjy JOHNSON MD Attending Physician: Benjy JOHNSON MD PCP: Madison Magana MD Discharge Diagnosis: Comment: PATIENT EDUCATION INFORMATION Instructions: Medication Leaflets: Follow up: With: Address: When: Benjy JOHNSON [address], [address], [facility] [address] [place] [address] [facility] (1) Comments: Call for followup appointment. I [...] a great day. MEDICATION LIST New Medications [facility], [address] [place], [place] [id number], [phone] sulfamethoxazole-trimethop rim (Bactrim D.S. 800 mg-160 mg [...] TABLETS BY MOUTH AT BEDTIME. Comment: Normal [facility] Main OR PACU I Recordon 09-09 Main OR PACU I Record Main OR PACU I Rec ord PACU Phase I Document Type FT Summary Primary Physician: Benjy JOHSNON MD Finalized Date/Time: 09/24/24 15:49:26 Pt. Name: MELISSA DUBOSE/Sex: 1960 Female Med Rec #: [id number] Physician: Benjy JOHNSON MD Financial #: [id number] Pt. Type: A Room/Bed: Admit/Disch: 09/24/24 11:19:24 [...] By: Hazel Swain RN 09/24/24 15:49 Normal [facility] Main OR PACU II Recordon Main OR PACU II Record Main OR PACU II Record PACU Phase II Document Type FT Summary Primary Physician: eBnjy JOHNSON MD Finalized Date/Time: 09/24/24 16:43:53 Pt. Name: MELISSA DUBOSE/Sex: 1960 Female Med Rec #: [id number] Physician: Benjy JOHNSON MD Financial #: [id number] Pt. Type: A Room/Bed: Admit/Disch: 09/24/24 11:19:24 [...] By: Kym White RN 09/24/24 16:43 Normal [facility] Main OR Preoperative Recordo n 09-24-2024 Main OR Preoperative Record Main OR Preoperative Record PreOp Document Type FT Summary Primary Physician: Benjy JOHNSON MD Finalized Date/Time: 09/24/24 15:58:07 Pt. Name: MELISSA DUBOSE /Sex: 1960 Female Med Rec #: [id number] Physician: Benjy JOHNSON MD Financial #: [id number] Pt. Type: A Room/Bed: Admit/Disch: 09/24/24 11:19:24 [...] By: Shaan Weaver RN 09/24/24 15:58 Normal [facility] Operative Reporton Operative Report Operative Report Patient: [...] is placed per urethra. A well-lubricated 22 Azerbaijani is urethroscope with 30 degree lens then passed into the bladder without difficulty. Bladder wash cytology was performed and sent as specimen #1. Bilateral ureteral wash cytologies were also then performed utilizing a 6 Azerbaijani open-ended ureteral catheter. These were sent to [...] tolerates it well. She transferred to [facility] and then back to PACU in [...] ml. Complications: None. Anesthesia type: General. Normal [facility] Comment on above: Result Comment: Elec tronically Signed By: SHANNAN HO, Benjy Sampson.patience\Date and Time Signed: 09/24/24 15:05 EST Outpatient Surgery Discharge Instructionon 09-24-2024 Outpatient Surgery Discharge Instruction Outpatient Surgery Discharge Instruction [address] [address] Patient Discharge Instructions PERSON INFORMATION [...] Follow up: With: Address: When: Benjy JOHNSON [address] [place], [place] [address], [address], [place] [id number] Business (1) Comments: Call for followup appointment. [...] to serve you. Thank you for choosing [facility] HERE ARE THE MEDICATION CHANGES THAT OCCURRED DURING YOUR HOSPITAL STAY New Medications [facility], [address] [place] [id number], [phone] sulfamethoxazole-trimethop rim (Bactrim D.S. 800 mg-160 mg [...] BEDTIME. PATIENT EDUCATION INFORMATION Instructions: Medication Leaflets: [facility] XR Chest 2 Viewson XR Chest [...] mGy = na DAP = na Normal [facility] BMPon 09-17-2024 Anion gap [Moles/Vol] 14 mmol/L Normal 6-16 [facility] Comment on above: Performed By: #### 2 [id number] #### [facility] [address] [place] [address] Calcium [Mass/Vol] 10.2 mg/dL Normal 8.9-11.1 [facility] Comment on above: Performed By: #### 2 [id number] #### [facility] [address] [place] [address] Chloride [Moles/Vol] 103 mmol/L Normal 101-111 [facility] Comment on above: Performed By: #### 2 [id number] #### [facility] [address] [place] [address] CO2 [Moles/Vol] 25 mmol/L Normal 21-31 [facility] Comment on above: Performed By: #### 2 [id number] #### [facility] [address] [place] [address] Creatinine [Mass/Vol] 1.1 mg/dL Normal 0.5-1.3 [facility] Comment on above: Performed By: #### 2 213097 #### [facility] [address] [place] [address] Glucose [Mass/Vol] 155 mg/dL Normal 55-199 [facility] Comment on above: Performed By: #### 2 [id number] #### [facility] [address] [place] [address] Potassium [Moles/Vol] 4.5 mmol/L Normal 3.5-5.3 [facility] Comment on above: Performed By: #### 2 [id number] #### [facility] [address] [place] [address] Sodium [Moles/Vol] 137 mmol/L Normal 135-145 [facility] Comment on above: Performed By: #### 2 [id number] #### [facility] [address] [place] [address] Urea nitrogen [Mass/Vol] 25 mg/dL High 5-21 [facility] Comment on above: Performed By: #### 2 330990 #### [facility] [address] [place] [address] Urea nitrogen/Creatinine [Mass ratio] 23 No Units High 10-20 [facility] Comment on above: Performed By: #### 2 [id number] #### [facility] [address] [place] [address] CBC w/ Auto Diffon 5 Basophils/100 WBC (Bld) 0.5 % Normal 0.0-2.0 [facility] Comment on above: Performed By: #### 2 [id number] #### [facility] [address] [place] [address] Basophils/Leukocytes Auto (Bld) [Pure # fraction] 0.0 E9/L Normal 0.0-0.2 [facility] Comment on above: Performed By: #### 2 780779 #### [facility] [address] [place] [address] Eosinophils (Bld) [#/Vol] 0.1 E9/L Normal 0.0-0.5 [facility] Comment on above: Performed By: #### 2 276369 #### [facility] [address] [place] [address] Eosinophils/100 WBC (Bld) 1.0 % Normal 0.0-8.0 [facility] Comment on above: Performed By: #### 2 409715 #### [facility] [address] [place] [address] Erythrocyte distribution width (RBC) [Ratio] 13.7 % Normal 10.9-14.2 [facility] Comment on above: Performed By: #### 2 [id number] #### [facility] [address] [place] [address] Hematocrit (Bld) [Volume fraction] 45.5 % Normal 34.0-46.0 [facility] Comment on above: Performed By: #### 2 [id number] #### [facility] [address] [place] [address] Hemoglobin (Bld) [Mass/Vol] 15.5 g/dL Normal 12.0-16.0 [facility] Comment on above: Performed By: #### 2 [id number] #### [facility] [address] [place] [address] Lymphocytes (Bld) [#/Vol] 1.7 E9/L Normal 1.0-4.0 [facility] Comment on above: Performed By: #### 2 [id number] #### [facility] [address] [place] [address] Lymphocytes/100 WBC (Bld) 19.8 % Normal 14.0-50.0 [facility] Comment on above: Performed By: #### 2 [id number] #### [facility] [address] [place] [address] MCH (RBC) [Entitic mass] 31.9 pg Normal 27.0-34.0 [facility] Comment on above: Performed By: #### 2 137761 #### [facility] [address] [place] [address] MCHC (RBC) [Mass/Vol] 34.0 g/dL Normal 31.4-36.0 [facility] Comment on above: Performed By: #### 2 [id number] #### [facility] [address] [place] [address] MCV (RBC) [Entitic vol] 93.9 fL Normal 80.0-100.0 [facility] Comment on above: Performed By: #### 2 [id number] #### [facility] [address] [place] [address] Monocytes (Bld) [#/Vol] 0.7 E9/L Normal 0.2-1.0 [facility] Comment on above: Performed By: #### 2 [id number] #### [facility] [address] [place] [address] Neutrophils (Bld) [#/Vol] 6.0 E9/L Normal 2.0-7.5 [facility] Comment on above: Performed By: #### 2 073501 #### [facility] [address] [place] [address] Neutrophils/100 WBC (Bld) 70.2 % Normal 36.0-75.0 [facility] Comment on above: Performed By: #### 2 [id number] #### [facility] [address] [place] [address] Platelet mean volume (Bld) [Entitic vol] 7.7 fL Normal 6.4-10.8 [facility] Comment on above: Performed By: #### 2 [id number] #### [facility] [address] [place] [address] Platelets (Bld) [#/Vol] 239.0 E9/L Normal 150.0-500.0 [facility] Comment on above: Performed By: #### 2 [id number] #### [facility] [address] [place] [address] RBC (Bld) [#/Vol] 4.8 E12/L Normal 4.3-5.9 [facility] Comment on above: Performed By: #### 2 [id number] #### [facility] [address] [place] [address] WBC corrected for nucl RBC Auto (Bld) [#/Vol] 8.5 E9/L Normal 4.0-11.0 [facility] Comment on above: Performed By: #### 2 [id number] #### [facility] [address] [place] [address] CHEMISTRYOrdered By: SYSTEM SYSTEM on 09-17-2024 Anion [...] 34.0 s Normal 25.1 - 36.5 second(s) [facility] Auto Coag Comment on above: Interpretive Data: [...] the same coagulation reagent and instrumentation as [facility]. Currently there are no coagulation studies available worldwide for children to 14 days, and no normal ranges. Heparin therapeutic range (represented by Anti-Factor Xa activity of 0.2 - 0.4 U/mL) corresponds to PTT of 56.6 - 109.0 sec. INR Coag (PPP) [Relative time] 1.17 {INR} Invalid Interpretation Code [facility] Auto Coag Comment on above: Interpretive Data: I NR results are specifically intended to assess patients stabilized on long-term Anticoagulation therapy suggested INR s Less Intensive Anticoagulation 2.0 3.0 Conventional Range 3.0 4.5 PT Coag (PPP) [Time] 13.1 s High 9.4 - 1 2.5 second(s) [facility] Auto Coag Comment on above: Interpretive Data: [...] the same coagulation reagent and instrumentation as [facility]. Currently there are no coagulation studies available [...] Coag (PPP) [Time] 34.0 second(s) Normal 25.1-36.5 [facility] Comment on above: Result Comment: Para meter [...] the same coagulation reagent and instrumentation as [facility]. Currently there are no coagulation studies available worldwide for children to 14 days, and no normal ranges. Heparin therapeutic range (represented by Anti-Factor Xa activity of 0.2 - 0.4 U/mL) corresponds to PTT of 56.6 - 109.0 sec. Performed By: #### 1 [id number] #### [facility] [address] [place] [address] INR Coag (PPP) [Relative time] 1.17 {INR} Invalid Interpretation Code [facility] Comment on above: Result Comment: INR results are specifically intended to assess patients stabilized on long-term Anticoagulation therapy suggested INR???s ???Less Intensive Anticoagulation??? 2.0 ??? 3.0 Conventional Range 3.0 ??? 4.5 Performed By: #### 1 [id number] #### [facility] [address] [place] [address] PT Coag (PPP) [Time] 13.1 second(s) High 9.4-12.5 [facility] Comment on above: Result Comment: 15 d [...] the same coagulation reagent and instrumentation as [facility]. Currently there are no coagulation studies available worldwide for children to 14 days, and no normal ranges. Performed By: #### 1 [id number] #### [facility] [address] [place] [address] UA with Cult Rflxon 09-17-19 25 Bilirubin Ql (U) Negative Normal Negative [facility] Comment on above: Performed By: #### 4 [id number] #### [facility] [address] [place] [address] Clarity (U) Clear Normal Clear [facility] Comment on above: Performed By: #### 4 [id number] #### [facility] [address] [place] [address] Color (U) Yellow Normal Yellow [facility] Comment on above: Result Comment: Micr oscopic readings are only performed on those samples that meet specific criteria set forth by [facility]. Performed By: #### 4 [id number] #### [facility] [address] [place] [address] Glucose Ql (U) 4+ mg/dL Abnormal Negative [facility] Comment on above: Performed By: #### 4 [id number] #### [facility] [address] [place] [address] Hemoglobin Auto test strip (U) [Mass/Vol] Negative Normal Negative [facility] Comment on above: Performed By: #### 4 [id number] #### [facility] [address] [place] [address] Ketones Auto test strip Ql (U) Negative Normal Negative [facility] Comment on above: Performed By: #### 4 [id number] #### [facility] [address] [place] [address] Leukocyte esterase Auto test strip Ql (U) Negative Normal Negative [facility] Comment on above: Performed By: #### 4 [id number] #### [facility] [address] [place] [address] Nitrite Auto test strip Ql (U) Negative Normal Negative [facility] Comment on above: Performed By: #### 4 [id number] #### [facility] [address] [place] [address] pH (U) 5.5 [pH] Invalid Interpretation Code 5.0-9.0 [facility] Comment on above: Performed By: #### 4 [id number] #### [facility] [address] [place] [address] Protein Ql (U) Trace Abnormal Negative [facility] Comment on above: Performed By: #### 4 [id number] #### [facility] [address] [place] [address] Specific gravity (U) [Rel density] 1.036 Invalid Interpretation Code 1.005-1.030 [facility] Comment on above: Performed By: #### 4 [id number] #### [facility] [address] [place] [address] Urobilinogen (U) [Mass/Vol] 2 mg/dL Abnormal Negative [facility] Comment on above: Performed By: #### 4 [id number] #### [facility] [address] [place] [address] Type of Urine collection method Clean Catch Normal [facility] Comment on above: Performed By: #### 4 [id number] #### [facility] [address] [place] [address] URINALYSISOrdered By: SYSTEM SYSTEM on 09-17-2024 Bilirubin Ql (U) Negative Normal Negativemg/ d L FT UA Auto SS Clarity (U) Clear (09/17/24 2:03 PM) Normal Clear [facility] UA Auto SS Color (U) Yellow 1 (09/17/24 2:03 PM) Normal Yellow [facility] UA Auto SS Comment on above: Interpretive Data: M icroscopic readings are only performed on those samples that meet specific criteria set forth by [facility]. Glucose Ql (U) 4+ mg/dL Invalid [...] Trace mg/dL Invalid Interpretation Code Negativemg/d L FT UA Auto SS Specific gravity (U) [Rel density] 1.036 *NA* (09/17/24 2:03 PM) Invalid Interpretation Code 1.005 - 1.030 FT UA Auto SS Urobilinogen (U) [Mass/Vol] 2 mg/dL Invalid Interpretation Code Negativemg/d L FT UA Auto SS URINALYSISOrdered By: Jp Liu on 09-17-2024 UA Spec Desc Clean Catch (09/17/24 2:03 PM) Normal [facility] UA Auto SS eGFRon 09-17-2024 eGFR 57 mL/min/1.73 m2 Low >=59 [facility] Comment on above: Performed By: #### 1 [id number] #### [facility] [address] [place] [address] 36on 09-07-[address] Leroy and Dr. Mendez to get a fax number and gave the Medical Records fax number on Dr. SOLOMON> no answer and office. Normal [facility] UroVysion Fish and Urine Cyt o ([facility])on 08-26-2024 UVFISH & UC Diagnosis Info Invalid Interpretation Code [facility] Comment on above: Result Comment: A:Ur ine,Bladder [...] with cytology and cystoscopy results. * CPT: 57939, 73797. Microscopic Notes - Microscopic Notes - Abnormal cells 9p21 deletions: Abnormal cells aneploid events: Total cells analyzed: 200 Hematuria: Gross Description Site ID:A color Yellow fixative Alcohol Received 80 mls of clear yellow fluid with the patient's name and, Bladder Wash on the vial. Electronically signed by : on: 08/26/2024 16:06:35 Performed By: #### 1 [id number] #### [facility] [address] [place] [address] Office Visiton 08-24-2024 Follow-up visit [id number] Chung Dubose 1960 F Date Provider Department Center 08/24/2024 JUSTINE NOLAN CARD [facility] Family History Problem Relation Age of Onset Diabetes Mother Atrial fibrillation Mother Hyperlipidemia Mother Kidney disease Sister Heart attack Maternal Grandmother Stroke Maternal Grandmother Family Status - Relation Status Age at Mother Sister Maternal Grandmother Level of Service:60473 [place] OFFICE/OUTPATIENT ESTABLISHED MOD MDM 30 MIN Normal [facility] Ambulatory Visit Summaryon 1 10-21-2023 [...] SHANNAN HO, AJ Jean When: Where: [address] [address]- Medications What How Much When Instructions [...] or it (more content not included)... Normal [facility] UroVysion Fish and Urine Cyt o ([facility])on 08-20-2024 [facility]UC Method of Extraction Bladder Wash Normal [facility] Comment on above: Performed By: #### 1 [id number] #### [facility] Laboratory [address] [place] [address] [facility] Number of Jars 1 Invalid Interpretation Code [facility] Comment on above: Performed By: #### 1 [id number] #### [facility] Laboratory [address] [place] [address] [facility] Specimen Bladder Wash Normal [facility] Comment on above: Performed By: #### 1 [id number] #### [facility] Laboratory [address] [place] [address] [facility] Type of Service Technical Only Normal [facility] Comment on above: Performed By: #### 1 [id number] #### [facility] Laboratory [address] [place] [address] Urology Office/Clinic Noteon 08-20-2024 Urology Office/Clinic Note [...] urothelial cancer. (more content not included)... Normal [facility] Comment on above: Result Comment: Elec tronically Signed By: Benjy JOHNSON MD P\.br\Date and Time Signed: 08/20/24 15:47 EST\.br\Electronically Co-Signed By: Danuta Larson P\.br\Date and Time Co-Signed: 08/20/24 15:42 EST Office Visiton 07-29-2024 Follow-up visit [id number] Chung Dubose 1960 F Date Provider Department Center 07/29/2024 JUSTINE NOLAN Family History Problem Relation Age of Onset Diabetes Mother Atrial fibrillation Mother Hyperlipidemia Mother Kidney disease Sister Heart attack Maternal Grandmother Stroke Maternal Grandmother Family Status - Relation Status Age at Mother Sister Maternal Grandmother Level of Service:53364 [place] OFFICE/OUTPATIENT ESTABLISHED MOD MDM 30 MIN Normal [facility] 36on 07-01-2024 36 Patient came into of fice to ECG. She is not in afib per Dr. Parks. 30 day event monitor was placed. She has follow up in Jul. Vitals: 144/88, HR 53 Normal [facility] 36on 06-30-2024 36 Her echocardiogram o n 06/23/2024 showed EF 20%. I want her to come to the office to obtain an ECG. If she is not in atrial fibrillation, then I want her to wear a event monitor to see if she is having episodes of AF that would explain the low EF. Also please obtain vital signs. Normal [facility] Telephoneon 06-30-2024 Telephone [id number] Chung Dubose 1960 F Date Provider Department Center 06/30/2024 JUSTINE NOLAN Family History Problem Relation Age of Onset Diabetes Mother Atrial fibrillation Mother Hyperlipidemia Mother Kidney disease Sister Heart attack Maternal Grandmother Stroke Maternal Grandmother Family Status - Relation Status Age at Mother Sister Maternal Grandmother Normal [facility] Urine Cytology ([facility])on 06-05-2024 Microscopic exam Cytology (U) [Interp] Diagnosis Info Invalid Interpretation Code [facility] Comment on above: Result Comment: A:Ur ine,Clean Catch:Voided Interpretation - Adequate cellularity for evaluation. MicroScopic Description - Adequacy - Adequate Gross Description Site ID:A color Yellow fixative Alcohol Specimen designated Clean Catch received in alcohol preservative and labeled with the patient???s name, consists of 40ml cloudy yellow fluid. Electronically signed by : on: 06/05/2024 15:04:11 Performed By: #### 1 [id number] #### [facility] Laboratory [address] [place] [address] Ambulatory Visit Summaryon 06-02-2024 Ambulatory Visit Summary Ambulatory Visit Summary IVANADORANITIN Patrick :1960 Visit Date:06/02/2024 Ambulatory Visit Instructions Your [...] Comments: elba Where: [address] [place] [id number]- Medications What How Much When Instructions Unchanged [...] that req (more content not included)... Normal [facility] Urine Cytology ([facility])on 0 06-02-2024 Method of Extraction Voided Normal [facility] Comment on above: Performed By: #### 1 [id number] #### [facility] Laboratory [address] Number of Jars 1 Invalid Interpretation Code [facility] Comment on above: Performed By: #### 1 [id number] #### [facility] Laboratory [address] [place] [id number] Specimen Clean Catch Normal [facility] Comment on above: Performed By: #### 1 [id number] #### [facility] Laboratory [address] Type of Service Technical Only Normal [facility] Comment on above: Performed By: #### 1 [id number] #### [facility] Laboratory [address] [place] [address] Urology Office/Clinic Noteon 06-02-2024 Urology Office/Clinic Note [...] with voice recognition artificial intelligence software, specifically [employer] and or [employer]. Substitutions may have occurred due to the [...] nodule. Discussed adrenal nodule findings. Will call [facility] radiology for Hounsfield measurements between the contrast and noncontrast images. May need additional lab work versus further workup. Patient will likely need separate discussion regarding this, she was very overwhelmed with hematuria discussion today. -Request for addendum on [facility] CTs 3. OAB (overactive bladder) (N32.81: [...] nonobstructing nephrol (more content not included)... Normal [facility] Comment on above: Result Comment: Elec tronically Signed By: HILTON Tariq APRN, Ashley Sorenson\.br\Date and Time Signed: 06/02/24 14:44 EDT Office Visiton 05-01-2024 Follow-up visit [id number] Chung Dubose 1960 F Date Provider Department Center 05/01/2024 JUSTINE NOLAN Family History Problem Relation Age of Onset Diabetes Mother Atrial fibrillation Mother Hyperlipidemia Mother Kidney disease Sister Heart attack Maternal Grandmother Stroke Maternal Grandmother Family Status - Relation Status Age at Mother Sister Maternal Grandmother Level of Service:60972 [place] OFFICE/OUTPATIENT ESTABLISHED MOD MDM 30 MIN Normal [facility] Office Visiton 02-19-2024 Follow-up visit [id number] Chung Dubose 1960 Date Provider Department Center 02/19/2024 [id number] NEW DEMETRIS Parra Family History Problem Relation Age of Onset Diabetes Mother Atrial fibrillation Mother Hyperlipidemia Mother Kidney disease Sister Heart attack Maternal Grandmother Stroke Maternal Grandmother Family Status - Relation Status Age at Mother Sister Maternal Grandmother Level of Service:33331 [place] OFFICE/OUTPATIENT ESTABLISHED MOD MDM 30 MIN Normal [facility] Calcium [Mass/volume] in Ser um or PlasmaOrdered By: Winter Norris on 11-24-2023 Calcium [Mass/Vol] 9.0 mg/dL 8.6-10.3 [facility] Carbon dioxide, total [Moles /volume] in Serum or PlasmaOrdered By: Winter Norris on 11-24-2023 CO2 [Moles/Vol] 30.8 mmol/L 21.0-31.0 [facility] Chloride [Moles/volume] in S mehreen or PlasmaOrdered By: Winter Norris on 11-24-2023 Chloride [Moles/Vol] 100 mmol/L 98-107 [facility] Creatinine [Mass/volume] in Serum or PlasmaOrdered By: Winter Norris on 11-24-2023 Creatinine [Mass/Vol] 0.91 mg/dL 0.60-1.20 [facility] Glucose Glucometer (BldC) [M ass/Vol]Ordered By: Winter Norris on 11-24-2023 Glucose [Mass/Vol] 271 mg/dL [facility] Comment on above: Random Glucose Refer ence Range is dependent on time and content of last meal. Glucose of more than 200 mg/dL in a nonstressed, ambulatory subject supports the diagnosis of Diabetes Mellitus. Glucose [Mass/volume] in Ser um or PlasmaOrdered By: Winter Norris on 11-24-2023 Glucose [Mass/Vol] 259 mg/dL 70-100 [facility] Comment on above: Delta: 133 on -[id number] recommended reference rangeRandom Glucose Reference Range is dependent on time and content of last meal. Glucose of more than 200 mg/dL in a nonstressed, ambulatory subject supports the diagnosis of Diabetes Mellitus. No Panel InformationOrdered By: Winter Norris on 11-24-2023 Estimated GFR (CKD-EPI) > 60.0 mL/Min [facility] Creatinine Clearance (Chem 85.70 [facility] Potassium [Moles/volume] in Serum or PlasmaOrdered By: Winter Norris on 11-24-2023 Potassium [Moles/Vol] 3.7 mmol/L 3.5-5.1 [facility] Serum or plasma anion gap de terminationOrdered By: Winter Norris on 11-24-2023 Anion gap [Moles/Vol] 10.9 mmol/L 6.0-15.0 [facility] Sodium [Moles/volume] in Ser um or PlasmaOrdered By: Winter Norris on 11-24-2023 Sodium [Moles/Vol] 138 mmol/L 136-145 [facility] Urea nitrogen [Mass/volume] in Serum or PlasmaOrdered By: Winter Norris on 11-24-2023 Urea nitrogen [Mass/Vol] 23 mg/dL 7-25 [facility] Basophils Auto (Bld) [#/Vol] Ordered By: Winter Norris on 11-23-2023 Basophils (Bld) [#/Vol] 0.0 10*3/uL 0.0-0.2 [facility] Basophils/100 WBC Auto (Bld) Ordered By: Winter Norris on 11-23-2023 Basophils/100 WBC (Bld) 0.1 % . [facility] Eosinophils Auto (Bld) [#/Vo l]Ordered By: Winter Norris on 11-23-2023 Eosinophils (Bld) [#/Vol] 0.0 10*3/uL 0.0-0.45 [facility] Eosinophils/100 WBC Auto (Bl d)Ordered By: Winter Norris on 11-23-2023 Eosinophils/100 WBC (Bld) 0.0 % . [facility] Erythrocyte distribution wid th Auto (RBC) [Ratio]Ordered By: Winter Norris on 11-23-2023 Erythrocyte distribution width (RBC) [Ratio] 15.3 % 11.9-15.3 [facility] Hematocrit Auto (Bld) [Volum e fraction]Ordered By: Winter Norris on 11-23-2023 Hematocrit (Bld) [Volume fraction] 40.4 % 34.0-46.4 [facility] Hemoglobin [Mass/volume] in BloodOrdered By: Winter Norris on 11-23-2023 Hemoglobin (Bld) [Mass/Vol] 13.1 g/dL 11.8-15.4 [facility] Leukocytes [#/volume] correc nargis for nucleated erythrocytes in Blood by Automated counOrdered By: Winter Norris on 11-23-2023 WBC corrected for nucl RBC Auto (Bld) [#/Vol] 9.6 10*3/uL 3.8-11.6 [facility] Lymphocytes Auto (Bld) [#/Vo l]Ordered By: Winter Norris on 11-23-2023 Lymphocytes (Bld) [#/Vol] 1.7 10*3/uL 1.00-4.8 [facility] Lymphocytes/100 WBC Auto (Bl d)Ordered By: Winter Norris on 11-23-2023 Lymphocytes/100 WBC (Bld) 17.7 % . [facility] MCH Auto (RBC) [Entitic mass ]Ordered By: Winter Norris on 11-23-2023 MCH (RBC) [Entitic mass] 28.2 pg 24.7-34.3 [facility] MCHC Auto (RBC) [Mass/Vol]Or dered By: Winter Norris on 11-23-2023 MCHC (RBC) [Mass/Vol] 32.4 g/dL 32.0-35.0 [facility] MCV Auto (RBC) [Entitic vol] Ordered By: Winter Norris on 11-23-2023 MCV (RBC) [Entitic vol] 86.9 fL 80-100 [facility] Monocytes Auto (Bld) [#/Vol] Ordered By: Winter Norris on 11-23-2023 Monocytes (Bld) [#/Vol] 0.9 10*3/uL 0.0-0.8 [facility] Monocytes/100 WBC Auto (Bld) Ordered By: Winter Norris on 11-23-2023 Monocytes/100 WBC (Bld) 9.5 % . [facility] Neutrophils Auto (Bld) [#/Vo l]Ordered By: Winter Norris on 11-23-2023 Neutrophils (Bld) [#/Vol] 7.0 10*3/uL 1.8-7.7 [facility] Neutrophils/100 WBC Auto (Bl d)Ordered By: Winter Norris on 11-23-2023 Neutrophils/100 WBC (Bld) 72.7 % . [facility] No Panel InformationOrdered By: Winter Norris on 11-23-2023 Bedside Glucose Comment Glu2: cleaned meter [facility] Nucleated erythrocytes [Pres ence] in Blood by Automated countOrdered By: Winter Norris on 11-23-2023 Nucleated RBC Auto Ql (Bld) 0.1 /100{WBC} 0-0.5 [facility] Platelet mean volume Auto (B ld) [Entitic vol]Ordered By: Winter Norris on 11-23-2023 Platelet mean volume (Bld) [Entitic vol] 8.5 fL 6.3-10.7 [facility] Platelets Auto (Bld) [#/Vol] Ordered By: Winter Norris on 11-23-2023 Platelets (Bld) [#/Vol] 203 10*3/uL 150-450 [facility] RBC Auto (Bld) [#/Vol]Ordere d By: Winter Norris on 11-23-2023 RBC (Bld) [#/Vol] 4.65 10*6/uL 3.60-5.00 [facility] WBC Auto (Bld) [#/Vol]Ordere d By: Winter Norris on 11-23-2023 WBC (Bld) [#/Vol] 9.6 10*3/uL 3.8-11.6 [facility] Activated partial thrombopla stin time (aPTT) in platelet poor plasma by coagulation aOrdered By: Justine Jacobo on 11-22-2023 aPTT Coag (PPP) [Time] 27.6 s 25.1-36.5 [facility] Comment on above: A hematocrit value g reater than 55% may lead to inaccurate results in coagulation testing. Patients having hematocrit values >55% require a special collection tube for coagulation studies. Please contact the laboratory at [phone] for redraw instructions. INR in Platelet poor plasma by Coagulation assayOrdered By: Justine Jacobo on 11-22-2023 INR Coag (PPP) [Relative time] 1.2 {INR} [facility] Comment on above: INR Therapeutic Rang [...] PT Coag (PPP) [Time] 14.0 s 9.0-12.9 [facility] Comment on above: A hematocrit value g reater than 55% may lead to inaccurate results in coagulation testing. Patients having hematocrit values >55% require a special collection tube for coagulation studies. Please contact the laboratory at [phone] for redraw instructions. Automated erythrocytes count in urine sediment (number/area)Ordered By: Winter Norris on 11-21-2023 RBC Auto (Urine sed) [#/Area] 1-2 [HPF] 0-4 [facility] Automated leukocytes count i n urine sediment (number/area)Ordered By: Winter Norris on 11-21-2023 WBC Auto (Urine sed) [#/Area] 0-1 [HPF] 0-4 [facility] Bilirubin Test strip Ql (U)O rdered By: Winter Norris on 11-21-2023 Bilirubin Ql (U) Negative Negative [facility] Cholesterol [Mass/volume] in Serum or PlasmaOrdered By: Karen Mays on 11-21-2023 Cholesterol [Mass/Vol] 95 mg/dL 140-200 [facility] Comment on above: Chol less than 200 m g/dl low riskChol 201-239 mg/dl borderline riskChol 240 mg/dl and greater high risk Cholesterol in LDL Calc [Mas s/Vol]Ordered By: Karen Mays on 11-21-2023 Cholesterol in LDL [Mass/Vol] 53 mg/dL 0-100 [facility] Comment on above: LDL ATP III CLASSIFI CATIONLDL less than 100 mg/dL OptimalLDL 100-129 mg/dL Near or above optimalLDL 130-159 mg/dL Borderline highLDL 160-189 mg/dL HighLDL greater than 189 mg/dL Very high Cholesterol in VLDL Calc [Ma ss/Vol]Ordered By: Karen Mays on 11-21-2023 Cholesterol in VLDL [Mass/Vol] 12 mg/dL [facility] Color Auto (U)Ordered By: Juanita Norris on 11-21-2023 Color (U) Yellow Yellow [facility] Glucose mean value [Mass/vol ume] in Blood Estimated from glycated hemoglobinOrdered By: Karen Mays on 11-21-2023 Average glucose Estimated from glycated hemoglobin (Bld) [Mass/Vol] 88 mg/dL [facility] Hemoglobin A1c percentageOrd ered By: Karen Mays on 11-21-2023 HbA1c (Bld) [Mass fraction] 4.7 % 4.3-5.6 [facility] Comment on above: Increased risk for d iabetes: 5.7 - 6.4diabetes: >6.4glycemic control for adults with diabetes: <7.0 Ketones Auto test strip (U) [Mass/Vol]Ordered By: Winter Norris on 11-21-2023 Ketones (U) [Mass/Vol] Negative Negative [facility] - UrinalysisOrder ed By: Winter Norris on 11-21-2023 Hyaline casts LM Ql (Urine sed) None seen [LPF] 0-8 [facility] Lactate [Moles/volume] in Se rum or PlasmaOrdered By: Karen Mays on 11-21-2023 Lactate [Moles/Vol] 1.5 mmol/L 0.5-2.2 [facility] Nitrite Test strip Ql (U)Ord ered By: Winter Norris on 11-21-2023 Nitrite Ql (U) Negative Negative [facility] No Panel InformationOrdered By: Winter Norris on 11-21-2023 Bedside Glucose #2 Comment Cleaned meter [facility] Bedside Glucose #3 Comment Will repeat test [facility] Protein Auto test strip (U) [Mass/Vol]Ordered By: Winter Norris on 11-21-2023 Protein (U) [Mass/Vol] Negative Negative [facility] Serum or plasma high density lipoprotein (HDL) cholesterol measurementOrdered By: Karen Mays on 11-21-2023 Cholesterol in HDL [Mass/Vol] 29 mg/dL 23-92 [facility] Comment on above: HDL CHOL ATP-III CLA SSIFICATION Cardiovascular RiskHDL > or equal to 60 mg/dL LOWHDL < 40 mg/dL HIGH Serum or plasma total choles terol/high density lipoprotein (HDL) cholesterol mass ratOrdered By: Karen Myas on 11-21-2023 Cholesterol.total/Cho lesterol in HDL [Mass ratio] 3.3 {ratio} <5.0 [facility] Specific gravity Auto test s trip (U) [Rel density]Ordered By: Winter Norris on 11-21-2023 Specific gravity (U) [Rel density] 1.012 1.001-1.030 [facility] Squamous epithelial cells de tection in urine sediment by light microscopyOrdered By: Winter Norris on 11-21-2023 Epithelial cells.squamous LM Ql (Urine sed) None seen [HPF] 0-2 [facility] Triglyceride [Mass/volume] i n Serum or PlasmaOrdered By: Karen Mays on 11-21-2023 Triglyceride [Mass/Vol] 63 mg/dL 0-149 [facility] Comment on above: TRIG ATP III [...] <= 0.01 ng/mL [Mass/Vol] 70.7 pg/mL 0.0-15.0 [facility] Comment on above: Critical Result : Ca lled to and read back by: DENNIS JOHNSON at: 11/21/2023 11:29:54 by:SAMINA Urine bacteria detection by automated methodOrdered By: Winter Norris on 11-21-2023 Bacteria Auto Ql (U) None seen None Seen [facility] Urine clarity by refractomet ry automatedOrdered By: Winter Norris on 11-21-2023 Clarity Refractometry automated (U) Clear Clear [facility] Urine glucose measurement by automated test strip (mass/volume)Ordered By: Winter Norris on 11-21-2023 Glucose Auto test strip (U) [Mass/Vol] >=1000 mg/dL Normal [facility] Urine hemoglobin detection b y automated test stripOrdered By: Winter Norris on 11-21-2023 Hemoglobin Auto test strip Ql (U) 1+ Negative [facility] Urine leukocyte esterase det ection by automated test stripOrdered By: Winter Norris on 11-21-2023 Leukocyte esterase Auto test strip Ql (U) Negative Negative [facility] Urobilinogen Auto test strip (U) [Mass/Vol]Ordered By: Winter Norris on 11-21-2023 Urobilinogen (U) [Mass/Vol] Normal mg/dL Normal [facility] pH Auto test strip (U)Ordere d By: Winter Norris on 11-21-2023 pH (U) 5.5 [pH] 5.0-9.0 [facility] CBC AUTO DIFFon 01-23-2023 BASO # 0.0 103/ul Normal 0.0-0.1 [facility] Comment on above: Performed By: #### I VINCE #### [facility] [address] [place] [address] Dr. Chi Keith Basophils/100 WBC (Bld) 0.4 % Normal 0.2-2.0 [facility] Comment on above: Performed By: #### I VINCE #### [facility] [address] [place] [address] Dr. Chi Keith EO # 0.1 103/ul Normal 0.0-0.7 [facility] Comment on above: Performed By: #### I VINCE #### [facility] [address] [place] [address] Dr. Chi Keith Eosinophils/100 WBC (Bld) 1.9 % Normal 0.9-7.0 [facility] Comment on above: Performed By: #### I VINCE #### [facility] [address] [place] [address] Dr. Chi Keith Erythrocyte distribution width (RBC) [Ratio] 13.9 % Normal 11.0-15.0 [facility] Comment on above: Performed By: #### I VINCE #### [facility] [address] [place] [address] Dr. Chi Keith Hematocrit (Bld) [Volume fraction] 40.5 % Normal 36.0-48.0 [facility] Comment on above: Performed By: #### I VINCE #### [facility] [address] [place] [address] Dr. Chi Keith Hemoglobin (Bld) [Mass/Vol] 12.9 g/dL Normal 12.0-16.0 [facility] Comment on above: Performed By: #### I VINCE #### [facility] [address] [place] [address] Dr. Chi Keith IG # 0.02 10e3/ul Normal 0.00-0.03 [facility] Comment on above: Performed By: #### I VINCE #### [facility] [address] [place] [address] Dr. Chi Keith IG % 0.3 % Normal 0.0-0.5 [facility] Comment on above: Performed By: #### I VINCE #### [facility] [address] [place] [address] Dr. Chi Keith LYMPH # 1.4 103/ul Normal 1.2-3.8 [facility] Comment on above: Performed By: #### I VINCE #### [facility] [address] [place] [address] Dr. Chi Keith Lymphocytes/100 WBC (Bld) 18.7 % Critically low 20.5-60.0 [facility] Comment on above: Performed By: #### I VINCE #### [facility] [address] [place] [address] Dr. Chi Keith MANUAL DIFF REQ NO Normal [facility] Comment on above: Performed By: #### I VINCE #### [facility] [address] [place] [address] Dr. Chi Keith MCH (RBC) [Entitic mass] 29.7 pg Normal 26.7-34.0 [facility] Comment on above: Performed By: #### I VINCE #### [facility] [address] [place] [address] Dr. Chi Keith MCHC (RBC) [Mass/Vol] 31.9 g/dL Normal 29.9-35.2 [facility] Comment on above: Performed By: #### I VINCE #### [facility] [address] [place] [address] Dr. Chi Keith MCV (RBC) [Entitic vol] 93.1 fL Normal 81.0-99.0 [facility] Comment on above: Performed By: #### I VINCE #### [facility] [address] [place] [address] [address] Chi Keith MONO # 0.5 103/ul Normal 0.3-0.8 [facility] Comment on above: Performed By: #### I VINCE #### [facility] [address] [place] [address] [address] Chi Keith Monocytes/100 WBC (Bld) 6.4 % Normal 1.7-12.0 [facility] Comment on above: Performed By: #### I VINCE #### [facility] [address] [place] [address] Dr. Chi Keith NEUT # 5.4 103/ul Normal 1.4-6.5 [facility] Comment on above: Performed By: #### I VINCE #### [facility] [address] [place] [address] Dr. Chi Keith Neutrophils/100 WBC (Bld) 72.3 % Normal 43.0-75.0 [facility] Comment on above: Performed By: #### I VINCE #### [facility] [address] [place] [address] Dr. Chi Keith Platelet mean volume (Bld) [Entitic vol] 10.1 fL Normal 9.5-13.5 [facility] Comment on above: Performed By: #### I VINCE #### [facility] [address] [place] [address] Dr. Chi Keith PLT 271 103/ul Normal 150-450 [facility] Comment on above: Performed By: #### I VINCE #### [facility] [address] [place] [address] Dr. Chi Keith RBC 4.35 106/ul Normal 4.20-5.40 [facility] Comment on above: Performed By: #### I VINCE #### [facility] [address] [place] [address] Dr. Chi Keith WBC 7.5 103/ul Normal 4.0-11.0 [facility] Comment on above: Performed By: #### I VINCE #### [facility] [address] [place] [address] Dr. Chi Keith FREE THYROXINE INDEX T7on FTI 3.94 Normal 1.30-4.50 [facility] Comment on above: Performed By: #### T 7, LIPID, TSH, CMP #### [facility] [address] [place] [address] Dr. Chi Keith T3U 31.0 % Normal 30.0-39.0 [facility] Comment on above: Performed By: #### T 7, LIPID, TSH, CMP #### [facility] [address] [place] [address] Dr. Chi Keith T4 [Mass/Vol] 12.70 ug/dL Normal 4.80-13.90 [facility] Comment on above: Performed By: #### T 7, LIPID, TSH, CMP #### [facility] [address] [place] [address] Dr. Chi Keith GLYCOHEMOGLOBIN A1Con 2022 ADA RECOMMENDATION SEE BELOW Normal [facility] Comment on above: Result Comment: ADA RECOMMENDED LIMIT 4.0 - 6.0 ADA THERAPEUTIC TARGET < 7.0 ACTION SUGGESTED > 7.0 Performed By: #### A 1C #### [facility] [address] [place] [address] Dr. Chi Keith Glucose [Mass/Vol] 120 mg/dL Normal [facility] Comment on above: Performed By: #### A 1C #### [facility] [address] [place] [address] Dr. Chi Keith HbA1c (Bld) [Mass fraction] 5.8 % Normal 4.5-6.2 [facility] Comment on above: Performed By: #### A 1C #### [facility] [address] [place] [address] Dr. Chi Keith IRONon 01-23-2023 Iron [Mass/Vol] 109.0 ug/dL Normal 50.0-170.0 [facility] Comment on above: Performed By: #### I VINCE #### [facility] [address] [place] [address] Dr. Chi Keith LIPID PROFILEon 01-23-2023 CHOL-HDL RATIO NORM SEE BELOW Normal [facility] Comment on above: Result Comment: 3.3 - 4.4 LOW RISK 4.4 - 7.1 AVERAGE RISK 7.1 - 11.0 MODERATE RISK >11.0 HIGH RISK Performed By: #### T 7, LIPID, TSH, CMP #### [facility] [address] [address] [address] Chi Keith Cholesterol [Mass/Vol] 209 mg/dL Critically high <=200 [facility] Comment on above: Performed By: #### T 7, LIPID, TSH, CMP #### [facility] [address] [address] [address] Chi Keith Cholesterol in HDL [Mass/Vol] 41 mg/dL Normal 40-60 [facility] Comment on above: Performed By: #### T 7, LIPID, TSH, CMP #### [facility] [address] [place] [address] Dr. Chi Keith Cholesterol in LDL [Mass/Vol] 135.0 mg/dL Normal [facility] Comment on above: Performed By: #### T 7, LIPID, TSH, CMP #### [facility] [address] [place] [address] Dr. Chi Keith Cholesterol.total/Cho lesterol in HDL [Mass ratio] 5.1 {ratio} Normal [facility] Comment on above: Performed By: #### T 7, LIPID, TSH, CMP #### [facility] [address] [address] [address] Chi Keith HDL NORMAL > or = 60 mg/dl - LO W CARDIOVASCULAR RISK <40 mg/dl - HIGH CARDIOVASCULAR RISK Normal [facility] Comment on above: Performed By: #### T 7, LIPID, TSH, CMP #### [facility] [address] [place] [address] Dr. Chi Keith LDL CALC NORMAL SEE BELOW Normal [facility] Comment on above: Result Comment: <100 mg/dl OPTIMAL 100 - 129 mg/dl NEAR OR ABOVE OPTIMAL 130 - 159 mg/dl BORDERLINE HIGH 160 - 189 mg/dl HIGH >190 mg/dl VERY HIGH Performed By: #### T 7, LIPID, TSH, CMP #### [facility] [address] [address] [address] Chi Keith Triglyceride [Mass/Vol] 165 mg/dL Critically high <=150 [facility] Comment on above: Performed By: #### T 7, LIPID, TSH, CMP #### [facility] [address] [address] [address] Chi Keith VLDL CALC 33.0 mg/dL Normal [facility] Comment on above: Performed By: #### T 7, LIPID, TSH, CMP #### [facility] [address] [address] [address] Chi Keith PROF 14(COMP METB)on 023 Albumin [Mass/Vol] 3.1 g/dL Critically low 3.4-5.0 [facility] Comment on above: Performed By: #### T 7, LIPID, TSH, CMP #### [facility] [address] [place] [address] Dr. Chi Keith Albumin/Globulin [Mass ratio] 0.8 {ratio} Normal [facility] Comment on above: Performed By: #### T 7, LIPID, TSH, CMP #### [facility] [address] [place] [address] Dr. Chi Keith ALP [Catalytic activity/Vol] 86 U/L Normal 46-116 [facility] Comment on above: Performed By: #### T 7, LIPID, TSH, CMP #### [facility] [address] [address] [address] Chi Keith ALT [Catalytic activity/Vol] 35 U/L Normal 14-59 [facility] Comment on above: Performed By: #### T 7, LIPID, TSH, CMP #### [facility] [address] [place] [address] Dr. Chi Keith Anion gap [Moles/Vol] 13.9 mmol/L Normal [facility] Comment on above: Performed By: #### T 7, LIPID, TSH, CMP #### [facility] [address] [place] [address] Dr. Chi Keith AST [Catalytic activity/Vol] 29 U/L Normal 15-37 [facility] Comment on above: Performed By: #### T 7, LIPID, TSH, CMP #### [facility] [address] [address] [address] Chi Keith Bilirubin [Mass/Vol] 0.6 mg/dL Normal 0.2-1.0 [facility] Comment on above: Performed By: #### T 7, LIPID, TSH, CMP #### [facility] [address] [place] [address] Dr. Chi Keith Calcium [Mass/Vol] 9.7 mg/dL Normal 8.5-10.1 [facility] Comment on above: Performed By: #### T 7, LIPID, TSH, CMP #### [facility] [address] [place] [address] Dr. Chi Keith Chloride [Moles/Vol] 106 mmol/L Normal 98-107 [facility] Comment on above: Performed By: #### T 7, LIPID, TSH, CMP #### [facility] [address] [place] [address] Dr. Chi Keith CO2 [Moles/Vol] 28.1 mmol/L Normal 21.0-32.0 [facility] Comment on above: Performed By: #### T 7, LIPID, TSH, CMP #### [facility] [address] [place] [address] Dr. Chi Keith Creatinine [Mass/Vol] 1.33 mg/dL Critically high 0.55-1.02 [facility] Comment on above: Performed By: #### T 7, LIPID, TSH, CMP #### [facility] [address] [place] [address] Dr. Chi Keith EGFR-AF SENEGALESE 49 mL/min/1.73m2 Critically low >=60 [facility] Comment on above: Performed By: #### T 7, LIPID, TSH, CMP #### [facility] [address] [place] [address] Dr. Chi Keith EGFR-NON AF SENEGALESE 41 mL/min/1.73m2 Critically low >=60 [facility] Comment on above: Performed By: #### T 7, LIPID, TSH, CMP #### [facility] [address] [address] [address] Chi Keith Globulin (S) [Mass/Vol] 3.8 g/dL Normal [facility] Comment on above: Performed By: #### T 7, LIPID, TSH, CMP #### [facility] [address] [address] [address] Chi Keith Glucose [Mass/Vol] 116 mg/dL Critically high 74-106 [facility] Comment on above: Performed By: #### T 7, LIPID, TSH, CMP #### [facility] [address] [place] [address] Dr. Chi Keith Potassium [Moles/Vol] 4.0 mmol/L Normal 3.5-5.1 [facility] Comment on above: Performed By: #### T 7, LIPID, TSH, CMP #### [facility] [address] [place] [address] Dr. Chi Keith Protein [Mass/Vol] 6.9 g/dL Normal 6.4-8.2 [facility] Comment on above: Performed By: #### T 7, LIPID, TSH, CMP #### [facility] [address] [place] [address] Dr. Chi Keith Sodium [Moles/Vol] 144 mmol/L Normal 136-145 [facility] Comment on above: Performed By: #### T 7, LIPID, TSH, CMP #### [facility] [address] [address] [address] Chi Keith Urea nitrogen [Mass/Vol] 20.0 mg/dL Critically high 7.0-18.0 [facility] Comment on above: Performed By: #### T 7, LIPID, TSH, CMP #### [facility] [address] [place] [address] Dr. Chi Keith Urea nitrogen/Creatinine [Mass ratio] 15.0 mg/mg Normal [facility] Comment on above: Performed By: #### T 7, LIPID, TSH, CMP #### [facility] [address] [place], [place] [id number] Dr. Chi Keith TSHon 01-23-2023 TSH 0.995 uIU/mL Normal 0.358-3.740 [facility] Comment on above: Performed By: #### T 7, LIPID, TSH, CMP #### [facility] [address] [place] [address] Dr. Chi Keith Covid-19 PCR ([facility])on SARS-CoV-2 (COVID-19) RNA ALEXANDREA+probe Ql (Unsp spec) Detected Critically abnormal NOT DETECTED [facility] Comment on above: Result Comment: This test is not yet approved or cleared by the [place] FDA. When there are no FDA-approved or cleared tests available, and other criteria are met, FDA can make tests available under an emergency access mechanism called an Emergency Use Authorization (EUA). The EUA for this test is supported by the [place] of Health and Human Service's declaration that [...] used). Performed By: #### I VINCE #### [facility] [address] [place] [address] Dr. Chi Keith INFLUENZA A AND B AGon 08-13 INFLUENZA A AG Negative Normal NEGATIVE SEE COMMENT [facility] Comment on above: Performed By: #### I VINCE #### [facility] [address] [place] [address] Dr. Chi Keith INFLUENZA B AG Negative Normal NEGATIVE SEE COMMENT [facility] Comment on above: Performed By: #### I VINCE #### [facility] [address] [place] [address] Dr. Chi Keith INTERNAL CONTROLS Within Normal Limits Normal Wi thin Normal Limits [facility] Comment on above: Performed By: #### I VINCE #### [facility] [address] [place] [address] Dr. Chi Keith CARDIAC [place] ADMITon 022 CK [Catalytic activity/Vol] 34 U/L Normal 26-192 [facility] Comment on above: Performed By: #### I VINCE #### [facility] [address] [place] [address] Dr. Chi Keith CK.MB [Mass/Vol] 0.71 ng/mL Normal <=3.60 [facility] Comment on above: Performed By: #### I VINCE #### [facility] [address] [place] [address] Dr. Chi Keith HSTROP 11.6 pg/mL Normal 4.0-51.3 [facility] Comment on above: Result Comment: CUT- OFF POINTS HAVE BEEN ESTABLISHED BASED ON THE FOURTH UNIVERSAL DEFINITIONS OF MYOCARDIAL INFARCTION. THE UPPER REFERENCE LIMIT (URL) OF TROPONIN, DEFINED THE 99TH PERCENTILE OF cTnI DISTRIBUTION IN A REFERENCE POPULATION, HAS BEEN CONFIRMED THE DECISION THRESHOLD FOR [place] DIAGNOSIS. Performed By: #### I VINCE #### [facility] [address] [place] [address] Dr. Chi Keith FAUSTO 57 ng/mL Normal 9-82 [facility] Comment on above: Performed By: #### I VINCE #### [facility] [address] [place] [address] Dr. Chi Keith CBC AUTO DIFFon 04-09-2022 BASO # 0.0 103/ul Normal 0.0-0.1 [facility] Comment on above: Performed By: #### I VINCE #### [facility] [address] [place] [address] Dr. Chi Keith Basophils/100 WBC (Bld) 0.4 % Normal 0.2-2.0 [facility] Comment on above: Performed By: #### I VINCE #### [facility] [address] [place] [address] Dr. Chi Keith EO # 0.1 103/ul Normal 0.0-0.7 [facility] Comment on above: Performed By: #### I VINCE #### [facility] [address] [place] [address] Dr. Chi Keith Eosinophils/100 WBC (Bld) 0.7 % Critically low 0.9-7.0 [facility] Comment on above: Performed By: #### I VINCE #### [facility] [address] [place] [address] Dr. Chi Keith Erythrocyte distribution width (RBC) [Ratio] 14.5 % Normal 11.0-15.0 [facility] Comment on above: Performed By: #### I VINCE #### [facility] [address] [place] [address] Dr. Chi Keith Hematocrit (Bld) [Volume fraction] 42.1 % Normal 36.0-48.0 [facility] Comment on above: Performed By: #### I VINCE #### [facility] [address] [place] [address] Dr. Chi Keith Hemoglobin (Bld) [Mass/Vol] 13.5 g/dL Normal 12.0-16.0 [facility] Comment on above: Performed By: #### I VINCE #### [facility] [address] [place] [address] Dr. Chi Keith IG # 0.03 10e3/ul Normal 0.00-0.03 [facility] Comment on above: Performed By: #### I VINCE #### [facility] [address] [place] [address] Dr. Chi Keith IG % 0.3 % Normal 0.0-0.5 [facility] Comment on above: Performed By: #### I VINCE #### [facility] [address] [place] [address] Dr. Chi Keith LYMPH # 1.8 103/ul Normal 1.2-3.8 [facility] Comment on above: Performed By: #### I VINCE #### [facility] [address] [place] [address] Dr. Chi Keith Lymphocytes/100 WBC (Bld) 18.3 % Critically low 20.5-60.0 [facility] Comment on above: Performed By: #### I VINCE #### [facility] [address] [place] [address] Dr. Chi Keith MANUAL DIFF REQ NO Normal [facility] Comment on above: Performed By: #### I VINCE #### [facility] [address] [place] [address] Dr. Chi Keith MCH (RBC) [Entitic mass] 30.5 pg Normal 26.7-34.0 [facility] Comment on above: Performed By: #### I VINCE #### [facility] [address] [place] [address] Dr. Chi Keith MCHC (RBC) [Mass/Vol] 32.1 g/dL Normal 29.9-35.2 [facility] Comment on above: Performed By: #### I VINCE #### [facility] [address] [place] [address] Dr. Chi Keith MCV (RBC) [Entitic vol] 95.2 fL Normal 81.0-99.0 [facility] Comment on above: Performed By: #### I VINCE #### [facility] [address] [place] [address] Dr. Chi Keith MONO # 0.6 103/ul Normal 0.3-0.8 [facility] Comment on above: Performed By: #### I VINCE #### [facility] [address] [place] [address] Dr. Chi Keith Monocytes/100 WBC (Bld) 6.3 % Normal 1.7-12.0 [facility] Comment on above: Performed By: #### I VINCE #### [facility] [address] [place] [address] Dr. Chi Keith NEUT # 7.5 103/ul Critically high 1.4-6.5 [facility] Comment on above: Performed By: #### I VINCE #### [facility] [address] [place] [address] Dr. Chi Keith Neutrophils/100 WBC (Bld) 74.0 % Normal 43.0-75.0 [facility] Comment on above: Performed By: #### I VINCE #### [facility] [address] [place] [address] Dr. Chi Keith Platelet mean volume (Bld) [Entitic vol] 9.3 fL Critically low 9.5-13.5 [facility] Comment on above: Performed By: #### I VINCE #### [facility] [address] [place], [place] [address] Dr. Chi Keith PLT 316 103/ul Normal 150-450 [facility] Comment on above: Performed By: #### I VINCE #### [facility] [address] [place], [place] [address] Dr. Chi Keith RBC 4.42 106/ul Normal 4.20-5.40 [facility] Comment on above: Performed By: #### I VINCE #### [facility] [address] [address] [address] Chi Keith WBC 10.1 103/ul Normal 4.0-11.0 [facility] Comment on above: Performed By: #### I VINCE #### [facility] [address] FACIAL BONES WO [...] SUNIL THOMPSON Date: 2022-04-09 15:58 Normal [facility] CT HEAD WO CONon 04-09-2022 CT HEAD [...] SUNIL THOMPSON Date: 2022-04-09 15:51 Normal [facility] URINE PROFILEon 2 Bilirubin Ql (U) MODERATE Abnormal NEGATIVE [facility] Comment on above: Performed By: #### I VINCE #### [facility] [address] [place] [address] Dr. Chi Keith Clarity (U) CLEAR Normal CLEAR [facility] Comment on above: Performed By: #### I VINCE #### [facility] [address] [place] [address] Dr. Chi Keith Color (U) DK. YELLOW Normal YELLOW [facility] Comment on above: Performed By: #### I VINCE #### [facility] [address] [place] [address] Dr. Chi Keith ERUAHD A micrscopic examina tion will be performed if indicated. Normal [facility] Comment on above: Performed By: #### I VINCE #### [facility] [address] [place] [address] Dr. Chi Keith Glucose Ql (U) Negative Normal NEGATIVE [facility] Comment on above: Performed By: #### I VINCE #### [facility] [address] [place] [address] Dr. Chi Keith Hemoglobin Ql (U) TRACE-INTACT Abnormal NEGATIVE [facility] Comment on above: Performed By: #### I VINCE #### [facility] [address] [place] [address] Dr. Chi Keith Ketones Ql (U) 15 mg/dl Abnormal NEGATIVE [facility] Comment on above: Performed By: #### I VINCE #### [facility] [address] [place] [address] Dr. Chi Keith LEUKOCYTES Negative Normal NEGATIVE [facility] Comment on above: Performed By: #### I VINCE #### [facility] [address] [place] [address] Dr. Chi Keith Nitrite Ql (U) Negative Normal NEGATIVE [facility] Comment on above: Performed By: #### I VINCE #### [facility] [address] [place] [address] Dr. Chi Keith pH (U) 5.5 [pH] Normal 5-9 [facility] Comment on above: Performed By: #### I VINCE #### [facility] [address] [place] [address] Dr. Chi Keith Protein (U) [Mass/Vol] 30 mg/dL Abnormal NEGATIVE/ TRACE [facility] Comment on above: Performed By: #### I VINCE #### [facility] [address] [place] [address] Dr. Chi Keith SPEC GRAVITY >=1.030 Abnormal 1.005-<=1.02 5 [facility] Comment on above: Performed By: #### I VINCE #### [facility] [address] [place] [address] Dr. Chi Keith UR MICRO IND INDICATED Normal [facility] Comment on above: Performed By: #### I VINCE #### [facility] [address] [place] [address] Dr. Chi Keith Urobilinogen Qn (U) 1.0 {Mani'U}/dL Normal 0.2 - 1. 0 [facility] Comment on above: Performed By: #### I VINCE #### [facility] [address] [place] [address] Dr. Chi Keith PROF 14(COMP METB)on 022 Albumin [Mass/Vol] 3.3 g/dL Critically low 3.4-5.0 [facility] Comment on above: Performed By: #### C MADM, CMP, TSH #### [facility] [address] [address] [address] Chi Keith Albumin/Globulin [Mass ratio] 0.9 {ratio} Normal [facility] Comment on above: Performed By: #### C MADM, CMP, TSH #### [facility] [address] [address] [address] Chi Keith ALP [Catalytic activity/Vol] 87 U/L Normal 46-116 [facility] Comment on above: Performed By: #### C MADM, CMP, TSH #### [facility] [address] [address] [address] Chi Keith ALT [Catalytic activity/Vol] 34 U/L Normal 14-59 [facility] Comment on above: Performed By: #### C MADM, CMP, TSH #### [facility] [address] [address] [address] Chi Keith Anion gap [Moles/Vol] 12.2 mmol/L Normal [facility] Comment on above: Performed By: #### C MADM, CMP, TSH #### [facility] [address] [address] [address] Chi Keith AST [Catalytic activity/Vol] 16 U/L Normal 15-37 [facility] Comment on above: Performed By: #### C MADM, CMP, TSH #### [facility] [address] [address] [address] Chi Keith Bilirubin [Mass/Vol] 0.6 mg/dL Normal 0.2-1.0 [facility] Comment on above: Performed By: #### C MADM, CMP, TSH #### [facility] [address] [address] [address] Chi Keith Calcium [Mass/Vol] 9.8 mg/dL Normal 8.5-10.1 [facility] Comment on above: Performed By: #### C MADM, CMP, TSH #### [facility] [address] [address] [address] Chi Keith Chloride [Moles/Vol] 106 mmol/L Normal 98-107 [facility] Comment on above: Performed By: #### C MADM, CMP, TSH #### [facility] [address] [address] [address] Chi Keith CO2 [Moles/Vol] 27.9 mmol/L Normal 21.0-32.0 [facility] Comment on above: Performed By: #### C MADM, CMP, TSH #### [facility] [address] [address] [address] Chi Keith Creatinine [Mass/Vol] 1.13 mg/dL Critically high 0.55-1.02 [facility] Comment on above: Performed By: #### C MADM, CMP, TSH #### [facility] [address] [place] [address] Dr. Chi Keith EGFR-AF SENEGALESE =60 Normal >=60 [facility] Comment on above: Performed By: #### C MADM, CMP, TSH #### [facility] [address] [address] [address] Chi Keith EGFR-NON AF SENE[place]ESE 49 mL/min/1.73m2 Critically low >=60 [facility] Comment on above: Performed By: #### C MADM, CMP, TSH #### [facility] [address] [place] [address] Dr. Chi Keith Globulin (S) [Mass/Vol] 3.8 g/dL Normal [facility] Comment on above: Performed By: #### C MADM, CMP, TSH #### [facility] [address] [place] [address] Dr. Chi Keith Glucose [Mass/Vol] 115 mg/dL Critically high 74-106 [facility] Comment on above: Performed By: #### C MADM, CMP, TSH #### [facility] [address] [place] [address] Dr. Chi Keith Potassium [Moles/Vol] 4.1 mmol/L Normal 3.5-5.1 [facility] Comment on above: Performed By: #### C THERESE TORRES, TSH #### [facility] [address] [place] [address] Dr. Chi Keith Protein [Mass/Vol] 7.1 g/dL Normal 6.4-8.2 [facility] Comment on above: Performed By: #### C THERESE TORRES, TSH #### [facility] [address] [place] [address] Dr. Chi Keith Sodium [Moles/Vol] 142 mmol/L Normal 136-145 [facility] Comment on above: Performed By: #### C THERESE TORRES, TSH #### [facility] [address] [place] [address] Dr. Chi Keith Urea nitrogen [Mass/Vol] 21.0 mg/dL Critically high 7.0-18.0 [facility] Comment on above: Performed By: #### Gina TORRES CMP, TSH #### [facility] [address] [place] [address] Dr. Chi Keith Urea nitrogen/Creatinine [Mass ratio] 18.6 mg/mg Normal [facility] Comment on above: Performed By: #### C THERESE TORRES, TSH #### [facility] [address] [place] [address] Dr. Chi Keith PROTIMEon 04-09-2022 INR Coag (PPP) [Relative time] 0.97 {INR} Normal [facility] Comment on above: Performed By: #### I VINCE #### [facility] [address] [place] [address] Dr. Chi Keith INR GUIDELINES SEE BELOW Normal [facility] Comment on above: Result Comment: LISA RED INR: 2.0 - 3.0 CONDITIONS NOT LISTED BELOW 2.5 - 3.5 FOR PROSTHETIC HEART VALVE REPLACEMENT 2.5 - 3.5 RECURRENT THROMBOSIS Performed By: #### I VINCE #### [facility] [address] [place] [address] Dr. Chi Keith PT Coag (PPP) [Time] 10.5 s Normal 9.0-11.6 [facility] Comment on above: Performed By: #### I VINCE #### [facility] [address] [place] [address] Dr. Chi Keith PTTon 04-09-2022 aPTT Coag (Bld) [Time] 23.1 s Normal 22.3-36.2 [facility] Comment on above: Performed By: #### I VINCE #### [facility] [address] [place] [address] Dr. Chi Keith TSHon 04-09-2022 TSH 0.511 uIU/mL Normal 0.358-3.740 [facility] Comment on above: Performed By: #### C MADM, CMP, TSH #### [facility] [address] [place] [address] Dr. Chi Keith URINE MICROSCOPIC ONLYon BACTERIA TRACE Abnormal NONE SEEN [facility] Comment on above: Performed By: #### I VINCE #### [facility] [address] [place] [address] Dr. Chi Keith Bacteria identified Cx Nom (U) NOT INDICATED Normal [facility] Comment on above: Performed By: #### I VINCE #### [facility] [address] [place] [address] Dr. Chi Keith CAST SEEN Abnormal NONE SEEN [facility] Comment on above: Performed By: #### I VINCE #### [facility] [address] [place] [address] Dr. Chi Keith Crystals LM Nom (Urine sed) NONE SEEN Normal NONE SEEN [facility] Comment on above: Performed By: #### I VINCE #### [facility] [address] [place] [address] Dr. Chi Keith Epithelial cells LM Ql (Urine sed) FEW Abnormal NONE SEEN /RARE [facility] Comment on above: Performed By: #### I VINCE #### [facility] [address] [place] [address] Dr. Chi Keith HYALINE CAST RARE Normal [facility] Comment on above: Performed By: #### I VINCE #### [facility] [address] [address] [address] Chi Keith MUCOUS SMALL Abnormal NONE SEEN [facility] Comment on above: Performed By: #### I VINCE #### [facility] [address] [address] [address] Chi Keith RBC 2-5 Abnormal 0-2 [facility] Comment on above: Performed By: #### I VINCE #### [facility] [address] [address] [address] Chi Keith WBC 0-2 Abnormal NONE SEEN [facility] Comment on above: Performed By: #### I VINCE #### [facility] [address] [address] [address] Chi Keith Cardiovascular Lab Reporton 05-11-2017 Cardiovascular Lab Report [facility] Patient Name: Melissa Dubose MR #: [id number] Center Physician: Justine Parks M.D.Department of Service Date: 05/10/2017Medicine Birthdate: [birth year]Division of Room #: [facility] CardiovascularServicesiv [facility] [place], [place] [address]Ruflv Fax Cardiovascular Laboratory ReportINDICATION:Melissa Dubose is a [...] She signedinformed consent. She was brought to cardiac cath lab radiology technologist in a fasting state. Theright groin area was prepped and draped in usual fashion. Usingmicropuncture technique, the right common femoral artery was accessed. Theinner cannula was advanced. Limited right femoral angiography wasperformed followed by upsizing to a 6-Azerbaijani x 11 cm sheath. Bilateralselective renal angiography was then performed using 6-Azerbaijani JL4 and CZ5acplfgkjpd catheters. The 6-Azerbaijani JR4 diagnostic catheter was used toselectively engage the saphenous venous graft to the OM and the radialgraft to the PDA. Angiography was performed. Catheter was exchanged to a6-Azerbaijani CYNTHIA catheter, which was used to selectively [...] coronary artery disease.2. Patent 3/3 bypass grafts.RECOMMENDATIONS:[facility] therapy and follow up in Cardiology Clinic.Electronically Signed by:Justine Parks M.D. 06/01/2017 08:16 A Justine Parks M.D.Date Dict: 05/10/2017/01:01 P/Justine Parks M.D.Date Trans: 05/11/2017 09:53 [id number] c: Madison Magana M.D. [address] [facility] [id number] [facility] Vital Signs Date Time Vital Sign Value Performing Clinician Facility 05-05-2025 12:42-0400 Body height 177.8 cm Madison Magana MD Work Phone: [facility] 05-05-2025 12:42-0400 Body mass index (BMI) [Ratio] 31.7 kg/m2 Madison Magana MD Work Phone: [facility] 05-05-2025 12:42-0400 Body temperature 97.4 [degF] Madison Magana MD Work Phone: [facility] 05-05-2025 12:42-0400 Body weight 100.24 kg Madison Magana MD Work Phone: [facility] 05-05-2025 12:42-0400 Diastolic blood pressure 75 mm[Hg] Madison Magana MD Work Phone: [facility] 05-05-2025 12:42-0400 Heart rate 82 /min Madison Magana MD Work Phone: [facility] 05-05-2025 12:42-0400 Respiratory rate 16 /min Madison Magana MD Work Phone: [facility] 05-05-2025 12:42-0400 SaO2% (BldA) [Mass fraction] 99 % Madison Magana MD Work Phone: [facility] 05-05-2025 12:42-0400 Systolic blood pressure 111 mm[Hg] Madison Magana MD Work Phone: [facility] 04-22-2025 12:27-0400 Body mass index (BMI) [Ratio] 31.8 kg/m2 Chet Furlong DO Work Phone: [facility] [employer] 04-22-2025 12:27-0400 Body temperature 97.59 [degF] [facility] 04-22-2025 12:27-0400 Body weight 100.52 kg Chet Furlong DO [facility] 04-22-2025 12:27-0400 Diastolic blood pressure 62 mm[Hg] Chet Furlong DO [facility] 04-22-2025 12:27-0400 Heart rate 108 /min Chet Furlong DO [facility] 04-22-2025 12:27-0400 Respiratory rate 18 /min Chet Furlong DO [facility] 04-22-2025 12:27-0400 SaO2% (BldA) [Mass fraction] 94 % Chet Furlong DO [facility] 04-22-2025 12:27-0400 Systolic blood pressure 99 mm[Hg] Chet Furlong DO [facility] 04-16-2025 15:33-0400 Body mass index (BMI) [Ratio] 32.14 kg/m2 Chet Furlong DO [facility] 04-16-2025 15:33-0400 Body temperature 97.59 [degF] Chet Furlong DO Work Phone: [facility] [employer] [facility] 04-16-2025 15:33-0400 Body weight 101.61 kg Chet Furlong DO [facility] 04-16-2025 15:33-0400 Diastolic blood pressure 46 mm[Hg] Chet Furlong DO Work Phone: [facility] [employer] [facility] 04-16-2025 15:33-0400 Heart rate 76 /min Chet Furlong DO Work Phone: [facility] 04-16-2025 15:33-0400 Respiratory rate 16 /min Chet Furlong DO Work Phone: [facility] 04-16-2025 15:33-0400 SaO2% (BldA) [Mass fraction] 97 % Chet Furlong DO Work Phone: [facility] 04-16-2025 15:33-0400 Systolic blood pressure 80 mm[Hg] Chet Furlong DO Work Phone: [facility] 04-13-2025 10:08-0400 Body mass index (BMI) [Ratio] 33.27 kg/m2 Chet Furlong DO Work Phone: [facility] 04-13-2025 10:08-0400 Body temperature 97.3 [degF] Chet Furlong DO Work Phone: [facility] 04-13-2025 10:08-0400 Body weight 105.19 kg Chet Furlong DO Work Phone: [facility] 04-13-2025 10:08-0400 Diastolic blood pressure 60 mm[Hg] Chet Furlong DO Work Phone: [facility] 04-13-2025 10:08-0400 Heart rate 92 /min Chet Furlong DO Work Phone: [facility] 04-13-2025 10:08-0400 Respiratory rate 16 /min Chet Furlong DO Work Phone: [facility] 04-13-2025 10:08-0400 SaO2% (BldA) [Mass fraction] 98 % Chet Furlong DO Work Phone: [facility] 04-13-2025 10:08-0400 Systolic blood pressure 90 mm[Hg] Chet Longo DO Work Phone: [facility] 04-07-2025 09:16-0400 SaO2% (BldA) [Mass fraction] 94 % Glenny Ahmadi MD Work Phone: [facility] 04-07-2025 08:55-0400 Body temperature 97.7 [degF] Glenny Ahmadi MD Work Phone: [facility] 04-07-2025 08:55-0400 Diastolic blood pressure 78 mm[Hg] Glenny Ahmadi MD Work Phone: [facility] 04-07-2025 08:55-0400 Heart rate 87 /min Glenny Ahmadi MD Work Phone: [facility] 04-07-2025 08:55-0400 Respiratory rate 16 /min Glenny Ahmadi MD Work Phone: [facility] 04-07-2025 08:55-0400 Systolic blood pressure 112 mm[Hg] Glenny Ahmadi MD Work Phone: [facility] 04-07-2025 04:51-0400 Body mass index (BMI) [Ratio] 36.57 kg/m2 Glenny Ahmadi MD Work Phone: [facility] 04-07-2025 04:51-0400 Body weight 115.6 kg Glenny Ahmadi MD Work Phone: [facility] 03-26-2025 09:23-0400 Body temperature 37.0 degrees [facility] Comment on above: Performed By: #### [id number] ####DERRICK Hall ([id number])[facility] ([facility])[address] [place] [address] 03-23-2025 08:51-0400 Body temperature 37.0 degrees [facility]els[facility] Comment on above: Performed By: #### [id number] ####DERRICK Hall ([id number])[facility] ([facility])[address] [place], [place] [id number] 03-23-2025 08:51-0400 SaO2% (BldA) [Mass fraction] 92 % GLENNY AHMADI [facility] Comment on above: Performed By: #### [id number] ####DERRICK Hall ([id number])[facility] ([facility])[address] [place], [place] [id number] 03-22-2025 11:00-0400 Body height 177.8 cm Glenny Ahmadi MD Work Phone: [facility] 09-24-2024 16:30-0500 Blood Pressure Location Benjy JOHNSON [facility] 09-24-2024 16:30-0500 Body temperature 97.7 [degF] Benjy JOHNSON [facility] 09-24-2024 16:30-0500 Diastolic blood pressure 70 mm[Hg] Benjy JOHNSON [facility] 09-24-2024 16:30-0500 Heart rate 78 /min Benjy JOHNSON [facility] 09-24-2024 16:30-0500 Mean blood pressure 91 mm[Hg] Benjy JOHNSON [facility] 09-24-2024 16:30-0500 SaO2% (BldA) [Mass fraction] 95 % Benjy JOHNSON [facility] 09-24-2024 16:30-0500 Systolic blood pressure 134 mm[Hg] Benjy JOHNSON [facility] 09-24-2024 15:43-0500 Heart rate 77 /min Benjy JOHNSON [facility] 09-24-2024 15:43-0500 SaO2% (BldA) [Mass fraction] 93 % Benjy JOHNSON [facility] 09-24-2024 15:43-0500 Diastolic blood pressure 69 mm[Hg] Benjy JOHNSON [facility] 09-24-2024 15:43-0500 Mean blood pressure 85 mm[Hg] Benjy JOHNSON [facility] 09-24-2024 15:43-0500 Systolic blood pressure 115 mm[Hg] Benjy JOHNSON [facility] 09-24-2024 15:43-0500 Blood Pressure Location Benjy JOHNSON [facility] 09-24-2024 15:43-0500 Body temperature 97.52 [degF] Benjy JOHNSON [facility] 09-24-2024 15:30-0500 Blood Pressure Location Benjy JOHNSON [facility] 09-24-2024 15:30-0500 Body temperature 97.34 [degF] Benjy JOHNSON [facility] 09-24-2024 15:30-0500 Diastolic blood pressure 73 mm[Hg] Benjy JOHNSON [facility] 09-24-2024 15:30-0500 Heart rate 69 /min Benjy JOHNSON [facility] 09-24-2024 15:30-0500 Mean blood pressure 89 mm[Hg] Benjy JOHNSON [facility] 09-24-2024 15:30-0500 Respiratory rate 17 /min Benjy JOHNSON [facility] 09-24-2024 15:30-0500 SaO2% (BldA) [Mass fraction] 92 % Benjy JOHNSON [facility] 09-24-2024 15:30-0500 Systolic blood pressure 122 mm[Hg] Benjy COOK [facility] 09-24-2024 15:15-0500 Mean blood pressure 95 mm[Hg] Benjy COOK [facility] 09-24-2024 15:15-0500 Respiratory rate 16 /min Benjy COOK [facility] 09-24-2024 15:10-0500 Respiratory rate 17 /min Benjy COOK [facility] 09-24-2024 11:45-0500 Mean blood pressure 87 mm[Hg] Benjy COOK [facility] 09-24-2024 11:43-0500 Respiratory rate 20 /min Benjy COOK [facility] 09-24-2024 11:43-0500 Body temperature 97.7 [degF] Benjy JOHNSON [facility] 09-24-2024 11:43-0500 Mean blood pressure 91 mm[Hg] Benjy COOK [facility] 09-17-2024 13:33-0500 Heart rate 61 /min Benjy COOK [facility] 09-17-2024 13:33-0500 SaO2% (BldA) [Mass fraction] 97 % Benjy COOK [facility] 09-17-2024 13:33-0500 Diastolic blood pressure 73 mm[Hg] Benjy COOK [facility] 09-17-2024 13:33-0500 Mean blood pressure 88 mm[Hg] Benjy COOK [facility] 09-17-2024 13:33-0500 Systolic blood pressure 118 mm[Hg] Benjy COOK [facility] 09-17-2024 13:32-0500 Heart rate 63 /min Benjy COOK [facility] 09-17-2024 13:32-0500 SaO2% (BldA) [Mass fraction] 96 % Benjy COOK [facility] 09-17-2024 13:32-0500 Respiratory rate 18 /min Benjy COOK [facility] 09-17-2024 13:32-0500 Diastolic blood pressure 84 mm[Hg] Benjy COOK [facility] 09-17-2024 13:32-0500 Mean blood pressure 99 mm[Hg] Benjy COOK [facility] 09-17-2024 13:32-0500 Systolic blood pressure 129 mm[Hg] Benjy COOK [facility] 08-20-2024 15:06-0500 Diastolic blood pressure 68 mm[Hg] Benjy COOK [facility] 08-20-2024 15:06-0500 Heart rate 80 /min Benjy COOK [facility] 08-20-2024 15:06-0500 Respiratory rate 16 /min Benjy COOK [facility] 08-20-2024 15:06-0500 Systolic blood pressure 104 mm[Hg] Benjy COOK [facility] 06-02-2024 13:56-0400 Diastolic blood pressure 78 mm[Hg] Ashley Orzech [facility] 06-02-2024 13:56-0400 Heart rate 56 /min Ashley Orzech [facility] 06-02-2024 13:56-0400 Respiratory rate 16 /min Ashley Orzech [facility] 06-02-2024 13:56-0400 Systolic blood pressure 126 mm[Hg] Ashley Orzech [facility] 11-25-2023 11:01-0400 Body temperature 97.7 [degF] MD Madison Magana Work Phone: [facility] 11-25-2023 11:01-0400 Diastolic blood pressure 65 mm[Hg] MD Madison Magana Work Phone: [facility] 11-25-2023 11:01-0400 Heart rate 90 /min MD Madison Magana Work Phone: [facility] 11-25-2023 11:01-0400 Respiratory rate 16 /min MD Madison Magana Work Phone: [facility] 11-25-2023 11:01-0400 SaO2% (BldA) [Mass fraction] 97 % MD Madison Magana Work Phone: [facility] 11-25-2023 11:01-0400 Systolic blood pressure 108 mm[Hg] MD Madison Magana Work Phone: [facility] 11-25-2023 06:00-0400 Body weight 103 kg MD Madison Magana Work Phone: [facility] 11-24-2023 20:00-0400 Inhaled oxygen flow rate 2 L/min MD aMdison Magana Work Phone: [facility] 11-21-2023 14:58-0400 Body height 177.8 cm MD Madison Magana Work Phone: [facility] Encounters Encounter Date Encounter Type Care Provider Facility Start: 05-05-2025 Registered Recurring Amira Gay MD -[facility] Center Acute Work Phone: Start: 05-05-2025 End: 05-05-2025 ambulatory Madison Magana MD Work Phone: [facility] Work Phone: Start: 05-05-2025 End: 05-05-2025 Patient encounter procedure Harriet Arroyo MD -Cancer Cent er Ambulatory Work Phone: Start: 04-28-2025 End: 04-28-2025 ambulatory Niurka Russ [facility] Work Phone: Start: 04-28-2025 End: 04-28-2025 Departed Referred Niurka Russ MD -[facility] Start: 04-21-2025 End: 04-22-2025 ambulatory Chet Longo DO Work Phone: [facility] [...] Start: 04-16-2025 End: 04-16-2025 ambulatory Chet Longo DO Work Phone: [facility] Comment on above: Hypotension, unspeci fied hypotension type (Primary Dx); Chronic heart failure, unspecified heart failure type (CMS-HCC); Primary hypertension; Chronic obstructive pulmonary disease, unspecified COPD type (CMS-HCC); Malignant neoplasm of unspecified part of right bronchus or lung (CMS-HCC) Start: 04-13-2025 End: 04-17-2025 ambulatory Chet Ibanezng DO Work Phone: [facility] Comment on above: Malignant neoplasm o f unspecified part of right bronchus or lung (CMS-HCC) (Primary Dx); Nausea and vomiting, unspecified vomiting type; Chronic obstructive pulmonary disease, unspecified COPD type (CMS-HCC); Muscle weakness (generalized); Unsteadiness on feet; Gastrointestinal hemorrhage, unspecified gastrointestinal hemorrhage type; Atrial fibrillation, unspecified type (CMS-HCC) Start: 04-07-2025 End: 04-21-2025 Continuing Care [facility] Comment on above: Acute respiratory fa ilure with hypoxia (CMS-HCC) (Primary Dx); Malignant neoplasm of unspecified part of right bronchus or lung (CMS-HCC); Chronic obstructive pulmonary disease, unspecified COPD type (CMS-HCC); Diabetic polyneuropathy associated with type 2 diabetes mellitus (CMS-HCC); Muscle weakness (generalized); Chronic heart failure, unspecified heart failure type (CMS-HCC); Primary hypertension; Atrial fibrillation, unspecified type (CMS-HCC); Unsteadiness on feet; Atherosclerosis of [place] coronary artery of [place] heart without angina pectoris; Noninfectious gastroenteritis, unspecified type; Pneumothorax, unspecified type; Cigarette nicotine dependence with nicotine-induced disorder; Gastroesophageal reflux disease without esophagitis; Ischemic cardiomyopathy Start: 04-01-2025 End: 04-01-2025 ambulatory [facility] Start: 04-01-2025 End: 04-01-2025 Subsequent hospital visit by physician Cierra Milton [facility] Comment on above: Arrived Encounter for antine oplastic radiation therapy; Malignant neoplasm of right main bronchus (Multi) Start: 04-01-2025 End: 04-01-2025 ambulatory [facility] Start: 03-31-2025 End: 03-31-2025 ambulatory [facility] Start: 03-31-2025 End: 03-31-2025 Subsequent hospital visit by physician Carlitos Rad Onc Tx Plan [facility] Comment on above: Arrived Start: 03-30-2025 End: 03-30-2025 Subsequent hospital visit by physician Carlitos [facility] [employer] [facility] Comment on above: Malignant neoplasm o f upper lobe, right bronchus or lung (Primary Dx) Start: 03-30-2025 End: 03-30-2025 ambulatory MADISON MAGANA [facility] Start: 03-30-2025 End: 03-30-2025 Subsequent hospital visit by physician Rad External Film EF [facility] EXTERNAL [facility] Comment on above: Malignant neoplasm o f upper lobe, right bronchus or lung Start: 03-29-2025 End: 03-29-2025 Evaluation and management of inpatient BETH Becerra SAMIRA [facility] Start: 03-22-2025 End: 04-07-2025 Evaluation and management of inpatient Glenny Ahmadi MD Work Phone: [facility] Start: 02-09-2025 End: 02-10-2025 [facility] Start: 12-04-2024 End: 12-04-2024 ambulatory [facility] Start: 09-24-2024 End: 09-24-2024 Admission to same day surgery center Benjy JOHNSON [facility] Start: 09-24-2024 End: 09-24-2024 ambulatory Benjy JOHNSON Facility:[facility] Start: 09-17-2024 End: 09-17-2024 ambulatory Benjy JOHNSON Facility:[facility] Start: 09-17-2024 End: 09-17-2024 Patient encounter procedure Benjy JOHNSON [facility] Start: 08-24-2024 End: 08-24-2024 ambulatory [facility] Start: 08-24-2024 End: 08-24-2024 Encounter for preprocedural cardiovascular examination [facility] Start: 08-20-2024 End: 08-20-2024 Lab Drop off Benjy JOHNSON [facility] Start: 08-20-2024 End: 08-20-2024 ambulatory Benjy JOHNSON Facility:[facility] Start: 08-20-2024 End: 08-20-2024 Patient encounter procedure Benjy JOHNSON [facility] Start: 07-29-2024 End: 07-29-2024 ambulatory [facility] Start: 06-02-2024 End: 06-02-2024 ambulatory Ashley X Orzech Facility:[facility] Start: 06-02-2024 End: 06-02-2024 Lab Drop off Ashley X Orzech [facility] Start: 06-02-2024 End: 06-02-2024 ambulatory Ashley X Orzech Facility: [facility] Start: 06-02-2024 End: 06-02-2024 Patient encounter procedure Ashley X Orzech [facility] Start: 05-01-2024 End: 05-01-2024 ambulatory [facility] Start: 04-01-2024 ambulatory Ashley Orzech Facility: [facility] Start: 02-19-2024 End: 02-19-2024 ambulatory [facility] Start: 11-21-2023 Non-patient / Non-visit MD Umesh Magana Work Phone: [facility] Work Phone: Start: 11-21-2023 End: 11-25-2023 Evaluation and management of inpatient MD Madison Magana Work Phone: [facility] [employer] Work Phone: Start: 01-23-2023 End: 01-24-[address] MADISON MAGANA . Facility:[facility] Start: 08-13-2022 End: 08-13-[address] MADISON MAGANA . Facility:[facility] Start: 04-09-2022 End: 04-09-2022 ambulatory MYKE CANTU . Facility: Start: 05-10-2017 End: 05-11-2017 Ambulatory PROVIDER UNKNOWN Facility:[facility] Start: 05-07-2017 End: 05-08-2017 Ambulatory DEFAULT PHYSICIAN Facility:[facility] Procedures Date Procedure Procedure Detail Performing Clinician Start: 04-28-2025 Urine culture Madison avina MD Work Phone: Start: 04-07-2025 Glucose quantitative blood xcpt reagent [...] Glucose quantitative blood xcpt reagent strip Shantanu iGlliland MD Work Phone: Start: 04-04-2025 Glucose quantitative [...] Nuno Guillen MD Work Phone: Start: 03-24-2025 Brnchsc w/placement brncl stent 1st bronchus Александр Jarrett MD Work Phone: Start: 03-24-2025 [facility] Nabor joseph MD Work Phone: Start: 03-24-2025 [...] 03-23-2025 Glucose quantitative blood xcpt reagent strip uNno Guillen MD Work Phone: Start: 03-23-2025 Glucose quantitative blood xcpt reagent strip Nuno Guillen MD Work Phone: Start: 03-23-2025 Glucose quantitative blood xcpt reagent strip Nuno Guillen MD Work Phone: Start: 03-23-2025 Radiologic exam ches t single view Duncan Del Castillo MD Work Phone: Start: 03-23-2025 Chloride bld Michelle mcnally MD Work Phone: Start: 03-23-2025 Glucose [...] MD Work Phone: Start: 03-22-2025 EXTRA URINE KOENIG TUBE J robert Alvarez MD Work Phone: [...] MD Work Phone: Start: 09-24-2024 Cystoscopy Benjy [place] Start: 08-20-2024 Flexible cystoscope (physical object) [...] 04-16-2026 Adult BMI Screening Adult BMI Screening [facility] Start: 04-07-2026 Creatinine measurement [facility] Start: 04-07-2026 Diabetes mellitus screening [facility] Start: 04-07-2026 Potassium measurement [facility] Start: 04-01-2026 Creatinine measurement Creatinine Level [facility] Start: 04-01-2026 Diabetes mellitus screening Diabetes Screening [facility] Start: 04-01-2026 Potassium measurement Potassium Level [facility] Start: 03-31-2026 Creatinine measurement Creatinine Level [facility] Start: 03-31-2026 Diabetes mellitus screening Diabetes Screening [facility] Start: 03-31-2026 Potassium measurement Potassium Level [facility] Start: 03-30-2026 Creatinine measurement Creatinine Level [facility] Start: 03-30-2026 Potassium measurement Potassium Level [facility] Start: 03-22-2026 Echocardiography Echocardiogram [facility] Start: 03-22-2026 [facility] Start: 10-26-2025 End: 10-26-2025 ambulatory [facility] Start: 05-10-2025 Influenza vaccination [facility] Start: 05-05-2025 Patient referral [facility] Work Phone: Start: 04-28-2025 Urine culture [facility] Start: 04-28-2025 Bacteria identified in Urine by Culture Urine Culture [facility] Start: 04-05-2025 End: 04-05-2025 Patient encounter procedure 04/05/2025 4:00 PM EDT Office Visit [facility] [address] [place] [address] [place] [address] [place] [address] [facility] Start: 04-01-2025 End: 04-01-2025 Patient encounter procedure [facility] Start: 01-07-2025 COVID-19 Vaccine (4 - Pfizer risk season) COVID-19 Vaccine (4 - Pfizer risk season) [facility] Start: 01-07-2025 [facility] Start: 11-25-2023 [facility] Start: 11-21-2023 Hospital admission [facility] Start: 11-21-2023 Referral to Rigging Engineer [facility] Start: 2022 RSV High Risk: (Elderly (60+) or Population) (1 - Risk 60-74 years 1-dose series) RSV High Risk: (Elderly (60+) or Population) (1 - Risk 60-74 years 1-dose series) [facility] Start: 2022 [facility] Start: 06-22-2021 Pneumococcal vaccination Pneumococcal Vaccine (2 of 2 - PCV) [facility] Start: 06-22-2021 [facility] Start: 2002 Screening for malignant neoplasm of breast [facility] Start: 1984 DTaP/Tdap/Td Vaccines (1 - Tdap) DTaP/Tdap/Td Vaccines (1 - Tdap) [facility] Start: 1984 [facility] Start: 1983 Screening for malignant neoplasm of cervix [facility] Start: 1981 Administration of varicella zoster vaccine Zoster (Shingles) Vaccine (1 of 2) [facility] Start: 1981 DTaP,Tdap and Td Vaccines (1 - Tdap) DTaP,Tdap and Td Vaccines (1 - Tdap) [facility] Start: 1981 Zoster Vaccines (1 of 2) Zoster Vaccines (1 of 2) [facility] Start: 1981 [facility] Start: 1980 Diabetic foot examination Diabetic Foot Exam [facility] Start: 1980 Hepatitis C screening [facility] Start: 1974 Depression Screening Depression Screening [facility] Start: 1974 Tobacco Screening Tobacco Screening [facility] Start: 1963 MMR Vaccines (1 of 1 - Standard series) MMR Vaccines (1 of 1 - Standard series) [facility] Start: 1963 [facility] Start: 1962 Bronchoscopy Bronchoscopy [facility] Start: 1962 Glaucoma screening Diabetic Ophthalmology Exam [facility] Start: 1962 HIV screening [facility] Start: 1962 Lipid panel [facility] Start: 1962 Medicare Annual Wellness Visit [facility] Start: 1962 Screening for malignant neoplasm of colon [facility] Start: 1962 Statin Use: Cardiovascular Statin Use: Cardiovascular [facility] Start: 1962 Statin Use: Diabetic Statin Use: Diabetic [facility] Start: 1962 [facility] CBC W Auto Different ial panel - Blood [facility] Work Phone: Electrocardiogram, 1 2-lead PRN ACS symptoms [facility] Service Area Work Phone: Electrocardiogram, 1 2-lead PRN ACS symptoms [facility] Work Phone: Glucose [Mass/volume ] in Serum or Plasma [facility] Work Phone: Magnesium [Mass/volu me] in Serum or Plasma [facility] Work Phone: Patient Education [facility] Work Phone: Patient referral [facility] Work Phone: End: 03-29-2025 Rad Onc Intent to Treat [facility] Service Are a Work Phone: End: 03-31-2025 Rad Onc Intent to Treat [facility] Work Phone: Renal function 1999 panel - Serum or Plasma [facility] Work Phone: Renal function 1999 panel - Serum or Plasma [facility] Work Phone: End: 04-02-2025 Tempus Solid Tumor DNA/RNA (xT/xR, paired Germline testing optional) [facility] Service Area Work Phone: End: 04-02-2025 Tempus xT DNA and RNA Solid Tumor [facility] Work Phone: End: 03-24-2025 US Abdomen [facility] Work Phone: End: 04-10-2025 XR Chest Single view [facility] Work Phone: XR Chest Single view [facility] Work Phone: Immunizations Immunization Date Immunization Notes Care Provider Leif askew 07-10-2024 influenza virus vacc ine, unspecified formulation Benjy JOHNSON [facility] 06-06-2023 influenza virus vacc ine, unspecified formulation Ashley Orzech [facility] 03-28-2022 SARS-CoV-2 mRNA (gnbnpvzkqfx-xwwk-edbwss e) vaccine Ashley Orzech [facility] 06-16-2021 influenza virus vacc ine, unspecified formulation Ashley Orzech [facility] 06-16-2021 SARS-CoV-2 (COVID-19 ) mRNA BNT-162b2 vax Ashley Orzech [facility] 12-08-2020 SARS-CoV-2 (COVID-19 ) mRNA BNT-162b2 vax Ashley Orzech [facility] 11-17-2020 SARS-CoV-2 (COVID-19 ) mRNA BNT-162b2 vax Ashley Orzech [facility] 06-22-2020 influenza virus vacc ine, unspecified formulation Ashley Orzech [facility] 06-22-2020 pneumococcal polysaccharide vaccine, 23 valent [employer] [facility] 07-31-2019 influenza virus vacc ine, unspecified formulation Ashley Orzech [facility] 07-28-2018 influenza virus vacc ine, unspecified formulation Ashley Orzech [facility] 06-21-2017 influenza, unspecifi ed formulation Ashley [employer] [facility] 05-08-2016 influenza virus vacc ine, unspecified formulation Ashley Orzech [facility] 06-08-2015 influenza virus vacc ine, unspecified formulation Ashley Orzech [facility] Payers Date Payer Category Payer Self-pay 2020 Medicare [id number] 2011 Medicare [id number] 1962 Unknown [id number] 2.16.84 [id number] 1962 Unknown [id number] 2.16.84 0.1.965621.3.579.2.593 1962 Unknown [id number] 2.16.84 0.1.622304.3.579.2.593 1962 Unknown [id number] 2.16.8 40.1.278407.3.579.2.727 1962 Unknown [id number] 2.16.8 40.1.296151.3.579.2.727 1962 Unknown [id number] 2.16.8 40.1.370545.3.579.2.727 1962 Unknown [id number] 2.16.8 40.1.451417.3.579.2.727 1962 Unknown [id number] 2.16.8 40.1.470871.3.579.2.727 1962 Unknown [id number] 2.16.8 40.1.114514.3.579.2.727 1962 Unknown [id number] 2.16.8 40.1.409541.3.579.2.727 1962 Unknown [id number] 2.16. 840.1.298917.3.579.2.1245 1962 Unknown [id number] 2.16. 840.1.553807.3.579.2.1245 1962 Unknown [id number] 2.16. 840.1.681735.3.579.2.1245 1962 Unknown [id number] 2.16. 840.1.017533.3.579.2.1245 1962 Unknown [id number] 2.16. 840.1.816454.3.579.2.1245 1962 Unknown [id number] 2.16. 840.1.296530.3.579.2.1245 1962 Unknown [id number] 2.16. 840.1.933610.3.579.2.124 1962 Unknown [id number] 2.16. 840.1.642798.3.579.2.1245 1957 Medicare [id number] Medicare [id number] Unknown Unknown MMO [id number] Unknown [id number] 2.16.8 40.1.247053.3.579.2.531 Unknown [id number] 2.16.8 40.1.955632.3.579.2.531 Social History Date Type Detail Facility Start: 11-22-2023 End: 05-05-2025 Tobacco smoking status NHIS Ex-smoker (finding) [facility] Start: 1960 Sex Assigned At Female F [facility] Start: 11-21-2023 Tobacco smoking status Never [facility] Start: 10-20-2020 End: 03-22-2025 Sex Assigned At Female [facility] Start: 09-17-2024 Tobacco smoking status Heavy t obacco smoker (finding) [facility] Start: 03-22-2025 [facility] consumption unknown [facility] Work Phone: Start: 03-24-2025 Alcoholic beverage intake Defer [facility] Work Phone: Start: 10-20-2020 End: 03-22-2025 History of Social function [facility] Work Phone: Within the last year , have you been afraid of your partner or ex-partner? No [facility] How hard is it for y ou to pay for the very basics like food, housing, medical care, and heating Not very hard [facility] (I/We) worried shellie er (my/our) food would run out before (I/we) got money to buy more. Never true [facility] Work Phone: Start: 1960 Sex assigned at Not on file [facility] Work Phone: Start: 03-31-2025 Tobacco smoking stat us NYIS Never smoked tobacco [facility] Start: 03-31-2025 Tobacco use and exposure Smokeless tobacco non-user [facility] Work Phone: Start: 03-31-2025 Alcoholic beverage intake Ex-drinker (finding) [facility] Work Phone: Start: 04-14-2015 Sex Female (finding) [facility] Medical Equipment Procedure Code Equipment Code Equipment Origin al Text Equipment Identifier Dates [id number] Start: 03-24-2025 Goals Date Patient Goal Desired Activity /State Functional Status Date Assessment Result Facility 03-22-2025 [place] - suicide s everity rating scale screener - recent [C-SSRS] [facility] Work Phone: 03-22-2025 Total score [AUDIT-C] [facility] Work Phone: 03-22-2025 Patient Health Quest ionnaire 2 item (PHQ-2) [Reported] [facility] Work Phone: 09-17-2024 Functional Status No [facility] 08-20-2024 Functional Status N/A [facility] 06-02-2024 Functional Status N/A [facility] 11-25-2023 Functional status Patient at [facility] Work Phone: [facility] Work Phone: Mental Status Date Assessment Result Facility 11-25-2023 Cognitive function Cognitive Sta tus Patient at Baseline [facility] Work Phone: Clinical Notes 11-21-2023 to 05-05-2025 Chet Longo, DO - 04/21/2025 11:59 PM EDTChet Longo, DO - 04/16/2025 3:33 PM EDAbraham Longo, DO - 04/13/2025 11:59 PM EDAbraham Longo, DO - 04/07/2025 11:59 PM EDTAttachments Note Date & Type Note Facility 05-05-2025 Progress note [facility] 04-21-2025 History of Present illness Narrative Patient Name: Melissa Dubose Date of : 1960 Date of Service: 04/21/2025 Facility: [facility] Type of Visit: Skilled Visit Subjective Melissa Dubose is a 64 y.o. female seen today at half-way facility for skilled visit. Clara is still [...] unspecified part of right bronchus or lung ([facility]) 2. Chronic obstructive pulmonary disease, unspecified COPD type ([facility]) 3. Acute respiratory failure with hypoxia ([facility]) 4. Chronic heart failure, unspecified heart failure type (CMS-HCC) 5. Muscle weakness (generalized) 6. Other fatigue 7. Unsteadiness on feet 8. Diabetic polyneuropathy associated with type 2 diabetes mellitus (CMS-HCC) 9. Nausea and vomiting, unspecified vomiting type Continue with physical therapy to reach maximum improvement. Melissa will be discharging to home next week. She came [facility] in a very weakened condition following [...] Chet Longo DO documented in this encounter Invarium 04-16-2025 History of Present illness Narrative Patient Name: Melissa Dubose Date of : 1960 Date of Service: 04/16/2025 Facility: [facility] Type of Visit: Skilled Visit Subjective Melissa Dubose is a 64 y.o. female seen today at half-way facility for problem visit. Staff reports low [...] Exam Vitals reviewed. Exam conducted with a transit driver present (Honorio Marsh MS3). Cardiovascular: Rate and [...] Chet Longo DO documented in this encounter Invarium 04-13-2025 History of Present illness Narrative Patient Name: Melissa Dubose Date of : 1960 Date of Service: 04/13/2025 Facility: [facility] Type of Visit: Skilled Visit Subjective Melissa Dubose is a 64 y.o. female seen today at half-way facility for skilled visit. Melissa has been [...] Exam Vitals reviewed. Exam conducted with a transit driver present (Honoriotarik Marsh MS3). Constitutional: General: She is not [...] Chet Longo DO documented in this encounter Invarium 04-07-2025 History of Present illness Narrative Patient Name: Melissa Dubose Date of : 1960 Date of Service: 04/21/2025 Facility: [facility] Type of Visit: Admission H&P Subjective Melissa Dubose is a 64 y.o. female seen today at half-way facility for admission H&P . Clara presents to [facility] for therapies following admission to [facility] for shortness of breath. She was found to be in respiratory failure due to pneumonia and a new lung mass which was found to be malignant. It was obstructing a bronchus so she was transferred to in [place]. She doesn't recall much of the events [...] 9. Unsteadiness on feet 10. Atherosclerosis of [place] coronary artery of [place] heart without angina pectoris 11. Noninfectious gastroenteritis, unspecified type 12. Pneumothorax, unspecified type 13. Cigarette nicotine dependence with nicotine-induced disorder 14. Gastroesophageal reflux disease without esophagitis 15. Ischemic cardiomyopathy Admit to [facility] for therapies. She is planning to go home when she is physically able to. Continue medications from the hospital. Full code. F/U with oncology as directed. Fair to good rehab potential. ELECTRONICALLY SIGNED BY: Chet Longo DO documented in this encounter Invarium 04-07-2025 History of Present illness Narrative 03/31/25 [...] (Rehab/SNF/etc) Type of Post Acute Facility Services FCI;Rehab Type of Home Care Services Home OT;Home [...] were you homeless or living in a fdc (including now)? N Transportation Needs In the past 12 months, has lack of transportation kept you from medical appointments or from getting medications? no In the past 12 months, has lack of transportation kept you from meetings, work, or from getting things needed for daily living? No Patient Choice Provider Choice list and CMS website (https://medicare.gov/care-compare#s earch) for post-acute Quality and Resource Measure Data [...] SW will meet with pt/family to discuss. WES will follow. Dandre Melvin [facility] 03/31/2025 111 WES met with pt and father bedside to discuss AR. SW described the difference between AR and SNF and pt is amenable to whatever will get her up and moving again. There is an AR at [facility] [place]. WES asked the care team to order a PM&R. Further discharge planning pending updates from the care team. SW will follow. Dandre Melvin [facility] 03/31/2025 1205 Per care team, pt is being evaluated for inpatient chemo by Thoracic Onc. [facility] is planning to see pt soon after discharge and may plan RT soon after that. WES requested that care team meet with pt to discuss before SW returns to room to discuss SNF rather than AR. SW will follow. Dandre Melvin [facility] 04/02/2025 1020 Per care team, no plans for chemo or RT. PM&R recs AR. Referral sent to [facility]. SW will follow. Dandre Melvin [facility] 04/02/2025 1500 Referral faxed to [facility] at [phone]. SW will follow. Dandre Nails Melvin [facility] 04/05/2025 1050 SW called [facility] and spoke to Jenifer [phone] to follow up on referral. ALEX MD wants updated clinicals and PT/OT. WES requested new PT and OT notes via the whiteboard. SW will follow. Dandre Melvin [facility] 04/05/2025 1620 Updated clinicals, incl PT and OT, faxed to [facility]. SW will follow. Dandre Nails Melvin [facility] 04/06/2025 0930 WES called and left a voicemail for Jenifer at [facility] for confirmation that she received the fax WES sent yesterday and to follow up on pt's acceptance to rehab. SW will follow. Dandre Nails Olegario [facility] 04/06/2025 1000 SW received a phone call from Jenifer from [facility]; she reported that the ALEX MD does not believe pt can tolerate AR at this time. WES spoke to pt and let her know. After WES described SNF, she confirmed she is amenable. Care team updated. SW will follow. Dander Nails Melvin [facility] 04/06/2025 1310 Referral sent to pr preferences: [facility], [facility], [facility], [facility], and [facility]. Pt [facility]. Facility wanted [...] updated. Care team updated. SW will follow. Dandre Melvin [facility] 04/06/2025 1545 Transport requested for pt to discharge to SNF [facility] but no transport company could accept the ride due to the distance to the facility. Transport confirmed for 04/07 at 1200 with [facility]. Pt, care team, and facility notified. SW will follow. Dandre Melvin [facility] 04/07/2025 1150 Discharge charge order is now in. AVS and goldenrod sent to SNF [facility]. 7000 submitted in HENS; facility notified. Once received, number for report will be sent to bedside nurse. SW will follow. Dandre Melvin [facility] 04/07/2025 1210 Per SNF: Number for report is [phone] ext [phone] and patient is going to room 103 Details sent to bedside nurse via secure chat. SW will follow. Dandre Melvin [facility] Care Transitions Note: 04/06/25 Social work following to assist with discharge planning. Pt recommended for SNF. Choice list provided and pt selected the following in order of preference: [facility], [facility], [facility], [facility]. Referrals sent via careport. Will advise of accepting SNF's when known. Linda KEATING [facility] Track Car Operator 03/31/25 1000 Discharge Planning Living Arrangements Children [...] (Rehab/SNF/etc) Type of Post Acute Facility Services [facility];Rehab Type of Home Care Services Home OT;Home [...] were you homeless or living in a fdc (including now)? N Transportation Needs In the past 12 months, has lack of transportation kept you from medical appointments or from getting medications? no In the past 12 months, has lack of transportation kept you from meetings, work, or from getting things needed for daily living? No Patient Choice Provider Choice list and CMS website (https://medicare.gov/care-compare#s earch) for post-acute Quality and Resource Measure Data [...] with pt/family to discuss. SW will follow. [facility] 03/31/[facility] 1115 SW met with pt and father bedside to discuss AR. SW described the difference between AR and SNF and pt is amenable to whatever will get her up and moving again. There is an AR at [facility] [place]. WES asked the care team to order a PM&R. Further discharge planning pending updates from the care team. SW will follow. Dandre Melvin [facility] 03/31/2025 1205 Per care team, pt is being evaluated for inpatient chemo by Thoracic Onc. [facility] is planning to see pt soon after discharge and may plan RT soon after that. WES requested that care team meet with pt to discuss before SW returns to room to discuss SNF rather than AR. SW will follow. Dandre Nails Melvin [facility] 04/02/2025 1020 Per care team, no plans for chemo or RT. PM&R recs AR. Referral sent to [facility]. SW will follow. Dandre Jaqui Melvin [facility] 04/02/2025 1500 Referral faxed to [facility] at [phone]. SW will follow. Dandre Jaqui Melvin [facility] 04/05/2025 1050 SW called [facility] and spoke to Jenifer [phone] to follow up on referral. ALEX MD wants updated clinicals and PT/OT. WES requested new PT and OT notes via the whiteboard. SW will follow. Dandre Morrisann [facility] 04/05/2025 1620 Updated clinicals, incl PT and OT, faxed to [facility]. SW will follow. Dandre Nails Melvin [facility] 04/06/2025 0930 WES called and left a voicemail for Jenifer at [facility] for confirmation that she received the fax WES sent yesterday and to follow up on pt's acceptance to rehab. SW will follow. Dandre Nails Olegario [facility] 04/06/2025 1000 SW received a phone call from Jenifer from [facility]; she reported that the ALEX MD does not believe pt can tolerate AR at this time. WES spoke to pt and let her know. After SW described SNF, she confirmed she is amenable. Care team updated. SW will follow. Dandre Nails Olegario [facility] 04/06/2025 1310 Referral sent to pr preferences: [facility], [facility], [facility], [facility], and [facility]. Pt was accepted to [facility]. Facility wanted [...] updated. Care team updated. SW will follow. Dandre Melvin [facility] [employer] [facility] 04/06/2025 1545 Transport requested for pt to discharge to [facility] but no transport company could accept the ride due to the distance to the facility. Transport confirmed for 04/07 at 1200 with [facility]. Pt, care team, and facility notified. SW will follow. Dandre Melvin [facility] [employer] [facility]CH[employer] Melissa Dubose is a 64 y.o. female [...] requiring mechanical ventilation. [facility] for 1 week of progressive [...] NSCLC favoring adenocarcinoma. Currently being managed by [facility] oncology for acute hypoxic resp failure and NSCLC favoring adenocarcinoma since 03/28/2025 Updates 04/06/2025 Touch base with social worker health services for discharge to nursing facility. She is not a candidate for rehab Daily AM CXR while inpatient to monitor PTX; CXR today showing stable size of PTX on initial review If patient acutely decompensates, can transfer for urgent chest tube Otherwise, plan for follow up with pulmonary for bronchoscopy in 3-4 weeks for evaluation of stent removal OP thoracic onc at [facility] (Dr. Escobedo staff working on scheduling appt) OP rad onc at [facility] w/ Dr. Arroyo - will fax [...] outpatient thoracic onc follow up (pt prefers [facility]) Supportive onc recs 03/30: start acetaminophen [...] Therapy Treatment Patient Name: Melissa Dubose Department: [facility] Room: [address] [place] [address] Today's Date: 04/05/2025 Time Calculation Start Time: [...] for sequencing Stairs Stairs: No Outcome Measures: [facility] Basic Mobility Turning from your back to [...] perform all aspects of bed mobility at [facility] (Progressing) Start: 03/30/25 Expected End: 04/13/25 Pt will perform all transfers at [facility]/ [facility]. (Progressing) Start: 03/30/25 Expected End: [...] Melissa Dubose : 1960 Date: 04/05/25 Room: [address] [place] [address]- Time Calculation Start Time: 1419 Stop Time: [...] start of session, Alarm off, caregiver present (RETAIL SHIFT LEADER present) Plan: Treatment Interventions: ADL retraining, Endurance [...] - cues for follow through Outcome Measures: [facility] Daily Activity Putting on and taking off [...] End: 04/20/25 04/05/25 at 3:45 PM Saad Antunez, CHRISTIE [phone] Progress note Melissa Dubose is a 64 [...] requiring mechanical ventilation. [facility] for 1 week of progressive [...] NSCLC favoring adenocarcinoma. Currently being managed by [facility] oncology for acute hypoxic resp failure and NSCLC favoring adenocarcinoma since 03/28/2025. Updates 04/05/2025 Touch base with social worker health services for discharge to rehab Daily AM CXR while inpatient to monitor PTX; CXR today showing stable size of PTX on initial review If patient acutely decompensates, can transfer for urgent chest tube Otherwise, plan for follow up with pulmonary for bronchoscopy in 3-4 weeks for evaluation of stent removal OP thoracic onc at [facility] (Dr. Escobedo staff working on scheduling appt) OP rad onc at [facility] w/ Dr. Arroyo - will fax [...] outpatient thoracic onc follow up (pt prefers [facility]) Supportive onc recs 03/30: start acetaminophen [...] and family together Spiritual Care Annotation Annotation: Travel Med Surg Rn introduced self and role to patient Melissa Dubose and her father. They welcomed visit from facility Nohemi natarajan. Hand water main inspector provided before and after visit. Patient expressed [...] Care remains available as needed/requested. Rev. Carmencita Martinez MDiv, [facility] 03/31/25 1000 Discharge Planning Living Arrangements Children [...] (Rehab/SNF/etc) Type of Post Acute Facility Services [facility]CI;Rehab Type of Home Care Services Home OT;Home [...] were you homeless or living in a fdc (including now)? N Transportation Needs In the past 12 months, has lack of transportation kept you from medical appointments or from getting medications? no In the past 12 months, has lack of transportation kept you from meetings, work, or from getting things needed for daily living? No Patient Choice Provider Choice list and [facility] website (https://medicare.gov/care-compare#s earch) for post-acute Quality and Resource Measure Data [...] with pt/family to discuss. SW will follow. Dandre Melvin [facility] 03/31/2025 1115 SW met with pt and father bedside to discuss AR. SW described the difference between AR and SNF and pt is amenable to whatever will get her up and moving again. There is an AR at [facility] in [place]. WES asked the care team to order a PM&R. Further discharge planning pending updates from the care team. SW will follow. Dandre Melvin [facility] 03/31/2025 1205 Per care team, pt is being evaluated for inpatient chemo by Thoracic Onc. [facility] is planning to see pt soon after discharge and may plan RT soon after that. WES requested that care team meet with pt to discuss before SW returns to room to discuss SNF rather than AR. SW will follow. Dandre Melvin [facility] 04/02/2025 1020 Per care team, no plans for chemo or RT. PM&R recs AR. Referral sent to [facility]. WES will follow. Dandre Melvin [facility] 04/02/2025 1500 Referral faxed to [facility] at [phone]. SW will follow. Dandre Melvin [facility] 04/05/2025 1050 SW called [facility] and spoke to Jenifer [phone] to follow up on referral. [facility] wants updated clinicals and PT/OT. SW requested new PT and OT notes via the whiteboard. SW will follow. Dandre Melvin [facility] 04/05/2025 1620 Updated clinicals, incl PT and OT, faxed to [facility]. SW will follow. Dandre Melvin [facility] Melissa Dubose is a 64 y.o. female [...] 04/02/2025 and PET-CT dated 04/01/2025 ACCESSION NUMBER(S): [id number] ORDERING CLINICIAN: LISSETTE MAHARAJ FINDINGS: Status post [...] Julia Ng 04/03/2025 9:33 AM Dictation workstation: [id number] PHYSICAL EXAM Physical Exam Vitals and nursing [...] requiring mechanical ventilation. She [facility] for 1 week of progressive [...] NSCLC favoring adenocarcinoma. Currently being managed by [facility] oncology for acute hypoxic resp failure and [...] attempt TOV today OP thoracic onc at [facility] (Dr. Escobedo staff working on scheduling appt) OP rad onc at [facility] w/ Dr. Arroyo - will fax [...] outpatient thoracic onc follow up (pt prefers [facility]) Supportive onc recs 03/30: start acetaminophen [...] 04/02/2025 and PET-CT dated 04/01/2025 ACCESSION NUMBER(S): [id number] ORDERING CLINICIAN: LISSETTE MAHARAJ FINDINGS: Status post [...] Julia Ng 04/03/2025 9:33 AM Dictation workstation: [id number] PHYSICAL EXAM Relevant Results Assessment & Plan Ms. 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 She originally presented to [facility] 03/21 for 1 week of progressive [...] NSCLC favoring adenocarcinoma. Currently being managed by [facility] oncology for acute hypoxic resp failure and [...] plaza removal/TOV tomorrow OP thoracic onc at [facility] (Dr. Escobedo staff working on scheduling appt) OP rad onc at [facility] w/ Dr. Arroyo - will fax [...] outpatient thoracic onc follow up (pt prefers [facility]) Supportive onc recs 03/30: start acetaminophen [...] Therapy Treatment Patient Name: Melissa Dubose Department: [facility] Room: [id number] Today's Date: 04/02/2025 Time Calculation Start Time: [...] safe hand placement and sequencing Outcome Measures: [facility] Basic Mobility Turning from your back to [...] Melissa Dubose : 1960 Date: 04/02/25 Room: [address] [place] [address] Time Calculation Start Time: 1335 Stop Time: [...] completion however vitals remain appropriate. Outcome Measures: [facility] Daily Activity Putting on and taking off [...] 04/02/25 at 2:51 PM Saad Antunez OT [phone] 03/31/25 1000 Discharge Planning Living Arrangements Children [...] (Rehab/SNF/etc) Type of Post Acute Facility Services [facility];Rehab Type of Home Care Services Home OT;Home [...] were you homeless or living in a fdc (including now)? N Transportation Needs In the past 12 months, has lack of transportation kept you from medical appointments or from getting medications? no In the past 12 months, has lack of transportation kept you from meetings, work, or from getting things needed for daily living? No Patient Choice Provider Choice list and CMS website (https://medicare.gov/care-compare#s earch) for post-acute Quality and Resource Measure Data [...] with pt/family to discuss. SW will follow. Dandre Melvin [facility] 03/31/2025 1115 SW met with pt and father bedside to discuss AR. SW described the difference between AR and SNF and pt is amenable to whatever will get her up and moving again. There is an AR at [facility] in [place]. SW asked the care team to order a PM&R. Further discharge planning pending updates from the care team. SW will follow. Dandre Melvin [facility] 03/31/2025 1205 Per care team, pt is being evaluated for inpatient chemo by Thoracic Onc. [facility] is planning to see pt soon after discharge and may plan RT soon after that. WES requested that care team meet with pt to discuss before SW returns to room to discuss SNF rather than AR. SW will follow. Dandre Melvin [facility] 04/02/2025 1020 Per care team, no plans for chemo or RT. PM&R recs AR. Referral sent to [facility]. SW will follow. Dandre Melvin [facility] 04/02/2025 1500 Referral faxed to [facility] at [phone]. SW will follow. [facility] Images from the original note were not included. [facility] ONCOLOGY PROGRESS NOTE Summary Statement Ms. Melissa [...] 03/24 in AM showed RBBB and c/f NV. Repeat EKG showed RBBB and no ST [...] L NC on 03/[address] [facility] oncology for management of new NSCLC and [...] 03/31/2025. COMPARISON: CT chest/abdomen/pelvis 03/28/2025. ACCESSION NUMBER(S): [id number] ORDERING CLINICIAN: SHANTANU GILLILAND TECHNIQUE: DIVISION OF [...] CODING: Initial Treatment Strategy (PI) CALIBRATION: Dose Egdxihoia-hm-Xqdi Interval (mins): 63 min Mediastinal bloodpool SUV [...] Cinthia Ugalde 04/02/2025 6:00 AM Dictation workstation: [id number] US thoracentesis Result Date: 04/01/2025 Interpreted By: Chuck Cobos, STUDY: US THORACENTESIS; 54:25 pm INDICATION: Signs/Symptoms:Thoracentesis of known Right moderate pleural effusion likely malignant from suspected NSCLC; currently on NC (new). B/l pleural effusions on CXR. COMPARISON: None. ACCESSION NUMBER(S): [id number] ORDERING CLINICIAN: LISSETTE MAHARAJ TECHNIQUE: INTERVENTIONALIST(S): Chuck [...] a right-sided thoracentesis was performed. A 5 Azerbaijani One-Step Valved thoracentesis needle/catheter was then placed [...] the entire procedure. Performed and dictated at [facility]. Signed by: Chuck Cobos 04/01/2025 4:25 PM Dictation workstation: [id number] XR chest 1 view Result Date: 04/01/2025 Interpreted By: Julia Duncan, STUDY: XR CHEST 1 VIEW; 03/31/2025 6:14 pm INDICATION: Signs/Symptoms:Post thoracentesis eval PTX. COMPARISON: Radiograph dated 03/31/2025 ACCESSION NUMBER(S): [id number] ORDERING CLINICIAN: SHANTANU GILLILAND FINDINGS: Status post [...] Julia Ng 04/01/2025 8:08 AM Dictation workstation: [id number] XR chest 1 view Result Date: 03/31/2025 Interpreted By: Con Dougherty, STUDY: XR CHEST 1 VIEW; 03/31/2025 3:15 pm INDICATION: Signs/Symptoms:Post thora. COMPARISON: 03/30/2025. ACCESSION NUMBER(S): [id number] ORDERING CLINICIAN: SHANTANU GILLILAND Large right superior [...] Con Dougherty 03/31/2025 3:33 PM Dictation workstation: [id number] Assessment/Plan Ms. 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 [facility] for 1 week of progressive [...] NSCLC favoring adenocarcinoma. Currently being managed by [facility] oncology for acute hypoxic resp failure and NSCLC favoring adenocarcinoma. Updates 04/02/25: Daily AM CXR to monitor PTX Repeat CXR today 04/02 showing stable size of PTX NGS ordered for outpatient treatment planning PET-CT 03/31 showing redemonstrated R hilar mass and possible metastases in lymph nodes, subcutaneous tissues, R humerus, and L adrenal gland Emailed Dr. Escobedo at [facility] regarding tx planning, scheduling follow up [...] outpatient thoracic onc follow up (pt prefers [facility]) Supportive onc recs 03/30: start acetaminophen [...] Relation: Father Secondary Emergency Contact Preferred language Zambian Fourdrinier Operator needed? No DISPO Acute rehab Esme Moore [...] 2/2 ischemic cardiomyopathy. She originally presented to [facility] on 03/21/25 for SOB and hypoxia. She was intubated and transferred to [facility] on 03/22/2025 for further evaluation and [...] medications to patient prior to discharge via [facility] pharmacy. Prescriptions will need to be sent 48-72 hours prior to discharge so that a prior authorization can be completed. Discharge date pending resolution of acute hospital issues. Pt does not currently qualify for an appointment with outpatient Supportive Oncology. SIGNATURE: Katie Schwab APRN-MANAGEMENT TRAINEE PROGRAM STORES PAGER/CONTACT: Contact information: Supportive and Palliative Oncology Saturday-Saturday 8 AM-5 PM Scaffold Secure chat or pager [phone]. After hours and weekends: pager [phone] SUBJECTIVE: Pain Assessment: Location: R chest, mid-low back Duration: Intermittent Characteristics: Rating: R chest/mid-low back: Mild Descriptors: Aching, sore, tight Aggravating: Movement, deep breathing Relieving: None, states recent pain medications only helped slightly Interference with Function: A little Opioid Requirements Past 24h opioid requirements: (03/31-04/01, 7120-6571) oxycodone IR 5mg x 3 = 15mg = 18.75 OME Total 24h OME use: 18.75 OME Symptom Assessment: Nausea: none--resolved since XRT Vomiting: none--resolved since XRT Difficulty Sleeping: none Constipation: none Diarrhea: a little Information obtained from: chart review, interview of patient, and discussion with primary team OBJECTIVE: Lab Results Component Value Date WBC [...] due to disease process Joys/meaning/strength: Family and [place] Understanding of health: Demonstrates some understanding of disease process, did not readily share what has been discussed Code status discussion: Discussed previously and Full code Advance Directives Existence of Advance Directives: None Decision maker: Estefani Pierce CNP, having previously discussed [place] hierarchy of legal next of kin and explained that typically adult children are surrogate decision makers. At that time pt stating that she would like her father, Ben, to be her surrogate decision maker while she thinks about completing [facility] paperwork. Signature and billing: Medical complexity was [...] of shared electronic medical record/secure chat/email or [id number]. We will continue to follow. Please contact us for additional questions or concerns. SIGNATURE: BERNADETTE Claudio PAGER/CONTACT: Contact information: [facility] Pall[facility] Oncology Saturday-Saturday 8 AM-5 PM, Scaffold Secure chat or pager [phone]. After hours and weekends: pager [phone] [1] albuterol, 2.5 mg, nebulization, TID [Held [...] Daily tiZANidine, 4 mg, oral, Nightly [2] [facility] ONCOLOGY PROGRESS NOTE Summary Statement Ms. Melissa [...] 03/24 in AM showed RBBB and c/f NV. Repeat EKG showed RBBB and no ST [...] L NC on 03/[address] [facility] oncology for management of new NSCLC and [...] effusions on CXR. COMPARISON: None. ACCESSION NUMBER(S): [id number] ORDERING CLINICIAN: LISSETTE MAHARAJ TECHNIQUE: INTERVENTIONALIST(S): Chuck [...] a right-sided thoracentesis was performed. A 5 Azerbaijani One-Step Valved thoracentesis needle/catheter was then placed [...] the entire procedure. Performed and dictated at [facility]. Signed by: Chuck Cobos 04/01/2025 4:25 PM Dictation workstation: [id number] NM PET [address] whole body Result Date: 04/01/2025 Interpreted By: Rolo Pickering, STUDY: NM PET CT WHOLE BODY; 04/01/2025 9:08 am INDICATION: Signs/Symptoms:new lung mass NSCLC favoring adenocarcinoma, planning for radiation and chemo. 64-year-old female with biopsy of mediastinal mass with pathology favoring adenocarcinoma with radiation initiation 03/31/2025. COMPARISON: CT chest/abdomen/pelvis 03/28/2025. ACCESSION NUMBER(S): [id number] ORDERING CLINICIAN: SHANTANU GILLILAND TECHNIQUE: DIVISION OF [...] CODING: Initial Treatment Strategy (PI) CALIBRATION: Dose Druimagdx-be-Bcmr Interval (mins): 63 min Mediastinal bloodpool SUV [...] Dr. Rolo Pickering. MACRO: None. Dictation workstation: [id number] XR chest 1 view Result Date: 04/01/2025 Interpreted By: Julia Duncan, STUDY: XR CHEST 1 VIEW; 03/31/2025 6:14 pm INDICATION: Signs/Symptoms:Post thoracentesis eval PTX. COMPARISON: Radiograph dated 03/31/2025 ACCESSION NUMBER(S): [id number] ORDERING CLINICIAN: SHANTANU GILLILAND FINDINGS: Status post [...] Julia Ng 04/01/2025 8:08 AM Dictation workstation: [id number] XR chest 1 view Result Date: 03/31/2025 Interpreted By: Con Dougherty, STUDY: XR CHEST 1 VIEW; 03/31/2025 3:15 pm INDICATION: Signs/Symptoms:Post thora. COMPARISON: 03/30/2025. ACCESSION NUMBER(S): [id number] ORDERING CLINICIAN: SHANTANU GILLILAND Large right superior [...] Con Dougherty 03/31/2025 3:33 PM Dictation workstation: [id number] Assessment/Plan Ms. 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 [facility] for 1 week of progressive [...] NSCLC favoring adenocarcinoma. Currently being managed by [facility] oncology for acute hypoxic resp failure and [...] outpatient thoracic onc follow up (pt prefers [facility]) Supportive onc recs 03/30: start acetaminophen [...] Regular Fluid consistency Thin 0 04/01/25 1113 03/22/25625 May Participate in Room Service With Assistance [...] Relation: Father Secondary Emergency Contact Preferred language Zambian Fourdrinier Operator needed? No DISPO Acute rehab Es[facility] Moore [...] Communication Note Patient Name: Melissa Dubose Department: [facility] Room: [address] [place] [address] Today's Date: 04/01/2025 Discipline: Physical Therapy Missed Visit: PT Missed Visit: Yes Missed Visit Reason: Missed Visit Reason: Other (Comment) (Pt off the floor) Missed Time: 08:42 AM Nutrition Follow Up Assessment: Nutrition Assessment Patient is a 64 y.o. female admitted for acute hypoxic respiratory failure requiring mechanical ventilation. Patient weaned to 5 L NC on 03/[address] [facility] oncology for management of new NSCLC and [...] feeds 03/26 (?) Failed swallow eval with TECHNICAL WRITER 03/27, reassessment 03/29 TECHNICAL WRITER recs for Regular Solids & Thin Liquids [...] 2280 kCal Method for Estimating Needs: MSJ (0788) x 1.3 using admit weight of 111kg [...] Communication Note Patient Name: Melissa Dubose Department: [facility] Room: [address] [place] [address] Today's Date: 03/31/2025 Discipline: Physical Therapy Missed [...] (Rehab/SNF/etc) Type of Post Acute Facility Services [facility];Rehab Type of Home Care Services Home OT;Home [...] were you homeless or living in a fdc (including now)? N Transportation Needs In the past 12 months, has lack of transportation kept you from medical appointments or from getting medications? no In the past 12 months, has lack of transportation kept you from meetings, work, or from getting things needed for daily living? No Patient Choice Provider Choice list and CMS website (https://medicare.gov/care-compare#s earch) for post-acute Quality and Resource Measure Data [...] with pt/family to discuss. SW will follow. [facility] 03/[facility] 1115 SW met with pt and father bedside to discuss AR. SW described the difference between AR and SNF and pt is amenable to whatever will get her up and moving again. There is an AR at [facility] [place]. SW asked the care team to order a PM&R. Further discharge planning pending updates from the care team. SW will follow. [facility] 03/31/[facility]25 1205 Per care team, pt is being evaluated for inpatient chemo by Thoracic Onc. [facility] is planning to see pt soon after discharge and may plan RT soon after that. WES requested that care team meet with pt to discuss before SW returns to room to discuss SNF rather than AR. SW will follow. Dandre Melvin [facility] [employer] ONCOLOGY PROGRESS NOTE Summary Statement Ms. Melissa [...] 03/24 in AM showed RBBB and c/f NV. Repeat EKG showed RBBB and no ST [...] L NC on 03/[address] [facility] oncology for management of new NSCLC and [...] radiograph 03/28/2025, CT chest 03/28/2025 ACCESSION NUMBER(S): [id number] ORDERING CLINICIAN: LISSETTE MAHARAJ FINDINGS: AP radiograph [...] Oneal MD. This study was interpreted at [facility], [place], [place]. MACRO: None Signed by: Con Dougherty 03/30/2025 2:09 PM Dictation workstation: [id number] Electrocardiogram, 12-lead PRN ACS symptoms Result Date: 03/29/2025 Atrial fibrillation Right bundle branch block Abnormal ECG When compared with ECG of 24-MAR-2025 08:45, Atrial fibrillation has replaced Sinus rhythm Nonspecific T wave abnormality, improved in Inferior leads Nonspecific T wave abnormality has replaced inverted T waves in Anterior leads Confirmed by Roc Lnig ([id number]) on 03/29/2025 2:14:27 PM MR brain w and wo IV contrast Result Date: 03/29/2025 Interpreted By: Lupe Green, STUDY: MR BRAIN W AND WO IV CONTRAST; 03/29/2025 9:55 am INDICATION: Signs/Symptoms:new cancer staging. New right hilar mass. COMPARISON: CT head 03/21/2025. ACCESSION NUMBER(S): [id number] ORDERING CLINICIAN: BETH HAYDEN TECHNIQUE: Multiplanar, multi-sequence [...] Lupe Green 03/29/2025 10:06 AM Dictation workstation: [id number] Assessment/Plan Ms. 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 She [facility] for 1 week of progressive [...] NSCLC favoring adenocarcinoma. Currently being managed by [facility] oncology for acute hypoxic resp failure and [...] outpatient thoracic onc follow up (pt prefers [facility]) Supportive onc recs 03/30: start acetaminophen [...] Relation: Father Secondary Emergency Contact Preferred language Zambian Fourdrinier Operator needed? No DISPO Pending Esme Moore MD [...] consulted. Will need plan from thoracic oncology [facility] ONCOLOGY PROGRESS NOTE Summary Statement Ms. Melissa [...] 03/24 in AM showed RBBB and c/f NV. Repeat EKG showed RBBB and no ST [...] L NC on 03/[address] [facility] oncology for management of new NSCLC and [...] radiograph 03/28/2025, CT chest 03/28/2025 ACCESSION NUMBER(S): [id number] ORDERING CLINICIAN: LISSETTE MAHARAJ FINDINGS: AP radiograph [...] Oneal MD. This study was interpreted at [facility], [place], [place]. MACRO: None Signed by: Con Dougherty 03/30/2025 2:09 PM Dictation workstation: [id number] Electrocardiogram, 12-lead PRN ACS symptoms Result Date: [...] mass. COMPARISON: CT head 03/21/2025. ACCESSION NUMBER(S): [id number] ORDERING CLINICIAN: BETH HAYDEN TECHNIQUE: Multiplanar, multi-sequence [...] Lupe Green 03/29/2025 10:06 AM Dictation workstation: [id number] Assessment/Plan Ms. 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 She [facility] for 1 week of progressive [...] report of NSCLC. Currently being managed by [facility] oncology for acute hypoxic resp failure and [...] Relation: Father Secondary Emergency Contact Preferred language Zambian Fourdrinier Operator needed? No DISPO Pending Esme Moore MD [...] Name: Melissa Dubose Today's Date: 03/30/2025 Room: [address] [place] [address]-A Time Calculation Start Time: 1217 Stop Time: [...] seat without rails Prior Function: Level of [place]: Independent with ADLs and functional transfers, Independent with homemaking with ambulation ADL Assistance: Independent Homemaking Assistance: Independent Ambulatory Assistance: Independent Vocational: Unemployed Hand Dominance: Right Prior Function Comments: - falls IADL History: Homemaking Responsibilities: Yes Meal Prep Responsibility: Primary Laundry Responsibility: Primary Cleaning Responsibility: Primary Bill Paying/Finance Responsibility: Primary Shopping Responsibility: Primary Icing Coater Responsibility: Primary Homemaking Comments: Some assistance from [...] Bill Paying/Finance Responsibility: Primary Shopping Responsibility: Primary Icing Coater Responsibility: Primary Homemaking Comments: Some assistance from [...] WFL (grossly 4+/5), , and Outcome Measures: [facility] Daily Activity Putting on and taking off [...] 2:47 PM Saad Antunez OT Rehab Office: [phone] Physical Therapy Physical Therapy Evaluation & Treatment Patient Name: Melissa Dubose Department: [facility] Room: [address] [place] [address]A Today's Date: 03/30/2025 Time Calculation Start Time: [...] Prior Function Per Pt/Caregiver Report Level of [place]: Independent with ADLs and functional transfers, Independent [...] breathing, & trunk balance/ stability. Outcome Measures: [facility] Basic Mobility Turning from your back to [...] Rowley PT at 03/30/2025 2:20 PM. Learner: , Patient Readiness: Acceptance Method: Explanation, Demonstration Response: Verbalizes Understanding, Demonstrated Understanding, Needs Reinforcement Comment: Mobility training, POC Education Comments No comments found. Serafin Rowley PT, DPT 03/30/25 1300 Discharge Planning Living Arrangements Children (Pt is KOSTA. Information is obtained from pt's fatherBen.) Support Systems Children;Parent Type of Residence Private [...] were you homeless or living in a fdc (including now)? N Transportation Needs In the past 12 months, has lack of transportation kept you from medical appointments or from getting medications? no In the past 12 months, has lack of transportation kept you from meetings, work, or from getting things needed for daily living? No Patient Choice Provider Choice list and CMS website (https://medicare.gov/care-compare#s earch) for post-acute Quality and Resource Measure Data [...] Primary Oncologist: Madison Magana MD Preferred Pharmacy: [facility] [place] [address] [place] [address] Preferred home care agency: none Met with [...] mass. COMPARISON: CT head 03/21/2025. ACCESSION NUMBER(S): [id number] ORDERING CLINICIAN: BETH HAYDEN TECHNIQUE: Multiplanar, multi-sequence [...] Lupe Green 03/29/2025 10:06 AM Dictation workstation: [id number] Physical Exam General: awake, alert, resting comfortably, [...] -Follow up referral to Dr. Arroyo at [facility] for additional RT considerations I spent [...] 2/2 ischemic cardiomyopathy. [facility]B and hypoxia. She was intubated and transferred to [facility] on 03/22/2025 for further evaluation and [...] medications to patient prior to discharge via [facility] pharmacy. Prescriptions will need to be sent 48-72 hours prior to discharge so that a prior authorization can be completed. Discharge date pending resolution of acute hospital issues. Pt does not currently qualify for an appointment with outpatient Supportive Oncology. SIGNATURE: BERNADETTE Claudio PAGER/CONTACT: Contact information: [facility] Saturday-Saturday 8 AM-5 PM Scaffold Secure chat or pager [phone]. After hours and weekends: pager [phone] SUBJECTIVE: Pain Assessment: Location: R chest, mid-low back, intermittent frontal headaches Duration: Intermittent Characteristics: Rating: R chest: 3/10, mid-low back: mild, frontal headaches: 0/10 Descriptors: Aching, sore, tight Aggravating: Movement, deep breathing Relieving: None, states recent pain medications only helped slightly Interference with Function: Somewhat Opioid Requirements Past 24h opioid requirements: (03/29-03/30, [id number]) None Total 24h OME use: 0 OME Symptom Assessment: Nausea: a little Vomiting: none Shortness of breath: none--currently on 6L with non-productive cough Difficulty Sleeping: somewhat--2/2 pain Information obtained from: chart review, interview of patient, and discussion with primary team OBJECTIVE: Lab Results Component Value Date WBC [...] due to disease process Joys/meaning/strength: Family and [place] Understanding of health: Demonstrates some understanding of disease process, did not readily share what has been discussed Code status discussion: Discussed previously and Full code Advance Directives Existence of Advance Directives: None Decision maker: Estefani Pierce CNP, having previously discussed [place] hierarchy of legal next of kin and explained that typically adult children are surrogate decision makers. At that time pt stating that she would like her father, Ben, to be her surrogate decision maker while she thinks about completing [facility] paperwork. Signature and billing: Medical complexity was [...] recent EKG, Medications Some elements copied from DANIEL Bravos, note on 03/28/25, the elements have been updated and all reflect current decision making from today, 03/30/25. Plan of Care discussed with: Primary team, pt, pt's family Thank you for asking [facility] to assist with care of this patient. Recommendations will be communicated back to the consulting service by way of shared electronic medical record/secure chat/email or [id number]. We will continue to follow. Please contact us for additional questions or concerns. SIGNATURE: BERNADETTE Claudio PAGER/CONTACT: Contact information: [facility] Saturday-Saturday 8 AM-5 PM, Scaffold Secure chat or pager [phone]. After hours and weekends: pager [phone] [1] albuterol, 2.5 mg, nebulization, TID apixaban, [...] TID spironolactone, 12.5 mg, oral, Daily [2] [facility] ONCOLOGY PROGRESS NOTE Summary Statement Ms. Melissa [...] 03/24 in AM showed RBBB and c/f NV. Repeat EKG showed RBBB and no ST [...] L NC on 03/[address] [facility] oncology for management of new NSCLC and [...] 392 ms QTC Calculation(Bazett) 490 ms R Ramsey 112 degrees T Ramsey 105 degrees QRS Count 15 beats Q [...] mass. COMPARISON: CT head 03/21/2025. ACCESSION NUMBER(S): [id number] ORDERING CLINICIAN: BETH HAYDEN TECHNIQUE: Multiplanar, multi-sequence [...] Lupe Green 03/29/2025 10:06 AM Dictation workstation: [id number] CT chest abdomen pelvis w IV contrast Result Date: 03/28/2025 Interpreted By: Francis Ratliff, STUDY: CT CHEST ABDOMEN PELVIS W IV CONTRAST; 03/28/2025 12:12 pm INDICATION: Signs/Symptoms:IV Staging. COMPARISON: Outside chest CT 03/21/2025. ACCESSION NUMBER(S): [id number] ORDERING CLINICIAN: NUNO GUILLEN TECHNIQUE: CT of [...] Francis Ratliff 03/28/2025 6:51 PM Dictation workstation: [id number] XR chest 1 view Result Date: 03/28/2025 Interpreted By: Shantanu Hui, STUDY: XR CHEST 1 VIEW; 03/28/2025 8:39 am INDICATION: Signs/Symptoms:weaning airvo, assesss pneumonia. COMPARISON: Chest radiograph 03/26/[address] 03/21/2025. ACCESSION NUMBER(S): [id number] ORDERING CLINICIAN: NUNO GUILLEN FINDINGS: AP radiograph [...] Shantanu Hui 03/28/2025 9:48 AM Dictation workstation: [id number] Assessment/Plan Ms. 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 [facility] for 1 week of progressive [...] report of NSCLC. Currently being managed by [facility] oncology for acute hypoxic resp failure and [...] surrogate decision maker Surrogate decision maker: Ben Boggsries Mobile Relation: Father Primary Emergency Contact Primary Emergency Contact: Ben Funez Mobile Relation: Father Secondary Emergency Contact Preferred language Zambian Fourdrinier Operator needed? No DISPO Pending Esme Moore MD [...] commands and responded appropriately to conversation/questions by TECHNICAL WRITER. Adequate volitional cough prior to administration of [...] followed during all oral intake. No further TECHNICAL WRITER services indicated; will sign off/complete order. If pt presents with any changes to mental, medical, or respiratory status, please make NPO and alert TECHNICAL WRITER. RN/MD aware. Recommendations: Regular Solids & Thin Liquids Upright for all PO intake Remain upright for 20-30 min after eating Small bites/sips Straws ok Slow rate of consumption Pills per pt preference TECHNICAL WRITER to sign off If pt presents with any changes to mental, medical, or respiratory status, please make NPO and alert TECHNICAL WRITER Goal: Pt/caregiver/family will demonstrate adequate return of [...] End Date: 03/29/2025 Status: Goal Met Plan: TECHNICAL WRITER Services Indicated: No Discussed POC with patient and spouse TECHNICAL WRITER - OK to Discharge Pain: 0-10 0 = No pain. Inpatient Education: Extensive education provided to patient and spouse regarding current swallow function, recommendations/results, and POC. Consultations/Referrals/Coordination of Services: N/A Speech-Language Pathology Therapy Communication Note Patient Name: Melissa Dubose Today's Date: 03/29/2025 Time: 935 Discipline: Speech-Language Pathology Reason: Attempt Comment: Swallow re-assessment attempted. Pt [place]ARFIELD for MRI at this time; will re-attempt as pt available/appropriate and schedule permits. [facility] ONCOLOGY PROGRESS NOTE Summary Statement Ms. Melissa [...] 03/24 in AM showed RBBB and c/f NV. Repeat EKG showed RBBB and no ST [...] L NC on 03/[address] [facility] oncology for management of new NSCLC and [...] 03/26/[address] 03/21/2025. ACCESSION NUMBER(S): [id number] ORDERING CLINICIAN: NUNO GUILLEN FINDINGS: AP radiograph [...] Shantanu Hui 03/28/2025 9:48 AM Dictation workstation: [id number] Assessment/Plan Ms. 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 [facility] for 1 week of progressive [...] report of NSCLC. Currently being managed by [facility] oncology for acute hypoxic resp failure and [...] sips of water allowed 03/28/25 1318 03/22/25 06 May Participate in Room Service [...] Relation: Father Secondary Emergency Contact Preferred language Zambian Fourdrinier Operator needed? No DISPO Pending Esme Moore MD [...] requiring mechanical ventilation. [facility] for 1 week of progressive [...] with transfer center, accepted for transfer to [facility] initiated for interventional pulmonology evaluation. Prior to [...] commands and responded appropriately to questions by TECHNICAL WRITER though w/ delayed response time. Denies any [...] prevent buildup of bacteria within the oropharynx. TECHNICAL WRITER will continue to follow w/ swallow re-assessment as pt demonstrates improvement in respiratory status, is appropriate, and schedule permits. RN/MD aware. Recommendations: NPO with frequent aggressive oral care. Ice chips and small sips water allowed for pleasure, safe swallow stimulation, and after oral care to prevent buildup of bacteria within the oropharynx TECHNICAL WRITER will continue to follow w/ swallow re-assessment [...] 04/27/2025 Status: Goal Initiated this date Plan: TECHNICAL WRITER Services Indicated: Yes Frequency: 2x per week Discussed POC with patient and spouse TECHNICAL WRITER - OK to Discharge Pain: 0-10 0 = No pain. Inpatient Education: Extensive education provided to patient and spouse regarding current swallow function, recommendations/results, and POC. Consultations/Referrals/Coordination of Services: N/A Communication Note Patient Name: Melissa Dubose Today's Date: 03/26/2025 Room: A Discipline: Physical Therapy PT Missed Visit: Yes Missed Visit Reason: (PT evaluation attempted, patient declining PT. Stating NO and not elaborating and not requesting further follow up. PT to sign off at this time, please reconsult if patient fails nursing mobility and is agreeable for participation.) 03/26/25 at 2:58 PM Harsh Reveles, PT Rehab Office: [phone] Melissa Dubose is a 64 y.o. female [...] am INDICATION: Signs/Symptoms:intubated. COMPARISON: 03/24/2025 ACCESSION NUMBER(S): [id number] ORDERING CLINICIAN: NUNO GUILLEN FINDINGS: AP radiograph [...] atelectasis. Increased markings in a bibasilar distribution, mhflc-bydpcew-rson-left. ABDOMEN: No remarkable upper abdominal findings. BONES: No acute osseous changes. Impression: 1. Unchanged appearance of the right upper lobe opacity concerning for atelectasis. 2. Bibasilar atelectasis/edema. MACRO: None Signed by: Lu Betancur 03/25/2025 11:09 AM Dictation workstation: [id number] Physical Exam Constitutional: General: She is not [...] from bronch Extubated Routine ICU care 03/25/25 3030 Discharge Planning Living Arrangements Children (Pt is KOSTA. Information is obtained from pt's father, Ben.) Support Systems Children;Parent Assistance Needed Independent prior [...] Currently intubated and sedated. - Support : FatherBen is listed primary contact. - Payor : Medicare A/B - Planned Disposition : Pending on medical outcome - Barrier to discharge : None noted at this time. SW met with pt's fatherBen at bedside to [...] last 72 hours Lab Units 03/25/25 0433 03/24/25 0344 03/23/25 0543 SODIUM mmol/L 140 141 140 [...] last 72 hours Lab Units 03/25/25 0433 03/24/25 0344 03/23/25 0543 WBC AUTO x10*3/uL 8.8 8.6 12.6* [...] Julia Ng 03/24/2025 5:04 PM Dictation workstation: [id number] Bronchoscopy Tier 2; Diagnostic Result Date: 03/24/2025 [...] Nabor Sparks MD 03/24/2025 1451 Procedure Location [facility] [address] [facility] [id number] XR chest 1 view Result Date: 03/24/2025 1. Similar appearance of a right upper lobe wedge-shaped opacity, favored to represent atelectasis. As this is a new finding from CT chest 03/21/2025, this may be secondary to mucous plugging. Correlate with bronchoscopy. 2. There is worsening of bibasilar hazy opacities, urckc-bpkzyce-vnhi-left, and blunting of the bilateral costophrenic angles favored to represent small pleural effusions versus atelectasis. Infectious or inflammatory process can not be excluded. 3. Medical devices as above. I personally reviewed the images/study and I agree with the findings as stated by resident physician Jose Oneal MD. This study was interpreted at [place], [place]. MACRO: None Signed by: Lu Betancur 03/24/2025 11:04 AM Dictation workstation: [id number] XR chest 1 view Result Date: 03/23/2025 [...] Oneal MD. This study was interpreted at [place], [place]. MACRO: None Signed by: Lu Betancur 03/23/2025 11:58 AM Dictation workstation: [id number] Cardiology, Vascular, and Other Imaging Bronchoscopy Tier 2; Diagnostic Result Date: 03/24/2025 Table formatting from the original result was not included. Bronchoscopy Report [facility] Location: [facility] procedure room 8 INDICATION: Hilar mass - right BRONCHOSCOPIST: Nabor Sparks MD Grain Receiver: Delmis Delaney MD REFERRING: Nuno Guillen MD [...] SURGICAL PATHOLOGY EXAM Nabor Sparks MD 03/24/2025 6414 3 : Non-Gynecologic Cytology LYMPH NODE 11 L PULMONARY FINE NEEDLE ASPIRATION CYTOLOGY CONSULTATION (NON-GYNECOLOGIC) Nabor Sparks MD 03/24/2025 1436 4 : Non-Gynecologic Cytology LYMPH NODE 4 L PULMONARY FINE NEEDLE ASPIRATION CYTOLOGY CONSULTATION (NON-GYNECOLOGIC) Nabor Sparks MD 03/24/2025 1444 5 : Non-Gynecologic Cytology LYMPH NODE 7 PULMONARY FINE NEEDLE ASPIRATION CYTOLOGY CONSULTATION (NON-GYNECOLOGIC) Nabor Sparks MD 03/24/2025 1451 Procedure Location [facility] [address] [facility] [id number] ECG 12 lead Result Date: 03/24/2025 Normal [...] NOK: Primary Emergency Contact: Ben Funez (father) [phone] - listed in chart, but daughter is involved per transfer call -> Rhina ([phone]) Disposition: ICU. Maybe floor tomorrow Tara Hernandez [...] fentaNYL, 0-300 mcg/hr, Last Rate: 150 mcg/hr (03/25/25699) propofol, 5-50 mcg/kg/min, Last Rate: 15 mcg/kg/min (03/25/25699) [3] PRN medications: dextrose, dextrose, fentaNYL, glucagon, [...] There is worsening of bibasilar hazy opacities, lxytq-gsobgvf-fqqf-left, and blunting of the bilateral costophrenic angles favored to represent small pleural effusions versus atelectasis. Infectious or inflammatory process can not be excluded. 3. Medical devices as above. I personally reviewed the images/study and I agree with the findings as stated by resident physician Jose Oneal MD. This study was interpreted at [facility], [place], [place]. MACRO: None Signed by: Lu Betancur 03/24/2025 11:04 AM Dictation workstation: [id number] XR chest 1 view Result Date: 03/23/2025 [...] Oneal MD. This study was interpreted at [facility], [place], [place]. MACRO: None Signed by: Lu Betancur 03/23/2025 11:58 AM Dictation workstation: [id number] Cardiology, Vascular, and Other Imaging ECG 12 lead Result Date: 03/24/2025 Normal sinus rhythm with sinus arrhythmia Incomplete right bundle branch block Possible Right ventricular hypertrophy Septal infarct , age undetermined ST & T wave abnormality, consider anterior ischemia Abnormal ECG Confirmed by Roc Ling ([id number]) on 03/24/2025 10:28:48 AM Transthoracic Echo Complete Result Date: 03/22/2025 [facility], [address] [place] [address] and TRANSTHORACIC ECHOCARDIOGRAM REPORT Patient Name: MELISSA DUBOSE Reading Physician: [id number] Aldo Gaspar MD Study Date: 03/22/2025 Ordering Provider: [id number] NUNO GUILLEN MRN/PID: [id number] Fellow: Nurse: Date of /Age: 12 1960 Pilot Plant Operator: RAE Mccall RDCS Gender assigned at F Additional Staff: : Height: 177.80 cm Admit Date: 03/22/2025 Weight: 103.87 kg Admission Status: Inpatient - Routine BSA / BMI: 2.21 m2 / 32.86 kg/m2 Blood Pressure: 129/68 mmHg Department Location: [address] Study Type: TRANSTHORACIC ECHO (TTE) COMPLETE Diagnosis/ICD: Acute respiratory failure with hypoxia-J96.01 Indication: Acute respiratory failure with hypoxia CPT Code: Echo Complete w Full Doppler-22652 Patient History: Pertinent History: A-Fib, Dyspnea and [...] LA Area A2C: 19.5 cm2 LA Major Ramsey A4C: 6.6 cm LA Major Ramsey A2C: 6.6 cm LA Volume Index: 25.6 [...] 1.0 m/s (0.6-0.9m/s) PV Max P.2 mmHg [id number] Aldo Gaspar MD Electronically signed on 03/22/2025 at 5:13:50 PM Final Assessment and Plan Assessment: Melissa Dubose is a 64 y.o. year old female patient with PMHx of CAD s/p CABG in 2015, HTN, [...] NOK: Primary Emergency Contact: Ben Funez (father) [phone] - listed in chart, but daughter is involved per transfer call -> Rhina ([phone]) Disposition: Floor Tara Hernandez MD 03/24/25 at [...] be difficult to extubate Payor: Medicare Support: father, Ben Elaine is listed as NOK Discharge planning: Pending medical outcome and rehab recommendation ROSA MARIA Jain, TOLL LINE MECHANIC Medical Intensive Care - Daily Progress Note [...] Oneal MD. This study was interpreted at [facility], [place], [place]. MACRO: None Signed by: Lu Betancur 03/23/2025 11:58 AM Dictation workstation: [id number] XR chest 1 view Result Date: 03/22/2025 1. ?Loculated air collection over the inferolateral margins of the right hemithorax. 2. Medical devices as above. MACRO: None Signed by: Lu Betancur 03/22/2025 9:28 AM Dictation workstation: [id number] XR abdomen 1 view Result Date: 03/22/2025 1. Enteric tube with the side port at the level of the GE junction projection MACRO: None Signed by: Lu Betancur 03/22/2025 8:41 AM Dictation workstation: [id number] Cardiology, Vascular, and Other Imaging Transthoracic Echo Complete Result Date: 03/22/2025 [facility], [address] [place] [address] and TRANSTHORACIC ECHOCARDIOGRAM REPORT Patient Name: MELISSA DUBOSE Reading Physician: [id number] Aldo Gaspar MD Study Date: 03/22/2025 Ordering Provider: [id number] NUNO GUILLEN MRN/PID: [id number] Fellow: Nurse: Date of /Age: 14 1960 Pilot Plant Operator: RAE Mccall RDCS Gender assigned at F Additional Staff: : Height: 177.80 cm Admit Date: 03/22/2025 Weight: 103.87 kg Admission Status: Inpatient - Routine BSA / BMI: 2.21 m2 / 32.86 kg/m2 Blood Pressure: 129/68 mmHg Department Location: [address] Study Type: TRANSTHORACIC ECHO (TTE) COMPLETE Diagnosis/ICD: Acute respiratory failure with hypoxia-J96.01 Indication: Acute respiratory failure with hypoxia CPT Code: Echo Complete w Full Doppler-70911 Patient History: Pertinent History: A-Fib, Dyspnea and [...] LA Area A2C: 19.5 cm2 LA Major Ramsey A4C: 6.6 cm LA Major Ramsey A2C: 6.6 cm LA Volume Index: 25.6 [...] 1.0 m/s (0.6-0.9m/s) PV Max P.2 mmHg [id number] Aldo Gaspar MD Electronically signed on 03/22/2025 [...] NOK: Primary Emergency Contact: Ben Funez (father) [phone] - listed in chart, but daughter is involved per transfer call -> Rhina ([phone]) Disposition: Floor Tara Hernandez MD 03/23/25 at [...] hypoxic respiratory failure. Pharmacy reviewed the patient's buobp-iy-lommwkhhl medications and allergies for accuracy. Medications ADDED: Toprol XL Norvasc Invokana Lidocaine patch Metformin Januvia Aldactone Tizanidine Acetaminophen Medications CHANGED: Entresto 49-51 to 97-103 Medications REMOVED: Jardiance Furosemide Imdur Lopressor The list below reflects the updated RECEIVING CHECKER list. Prior to Admission Medications Prescriptions Last [...] be assessed for M2B at discharge. Sources: [facility] Pharmacy dispense history Child - Daughter, Rhina ([phone])- Good historian Read off patient's prescription vials at home Chart Review Care Everywhere [facility] cardio note from 02/09 Additional Comments: None Veronica Oconnor PharmD Transitions of Care Pharmacist 03/22/25 Secure Chat preferred If no response call [phone] or Senzari documented in this encounter [facility] Work Phone: 04-07-2025 Miscellaneous Notes Problem: Skin [...] free from innjury Rapid Response Nurse Note: RADAR alert: 8 Pager time: [phone] Arrival time: 1719 message 1814 follow up Event end time: 1824 Location: [facility] 5 [x] Triage by phone or secure messaging Rapid response initiated by: [] Rapid response RN [] Family [] Nursing Track Car Operator [] Physician [x] RADAR auto page [] Sepsis auto-page [] RN [] RT [] DIVISION DIRECTOR/PA [] Other: Primary reason for call: [] [...] or acute change in condition/VS Additional Comments: NOEAR alert -score of 8. Initial VS review [...] Free from restraint(s) (Restraint for Interference with Tinsel Machine Operator) Outcome: Progressing Goal: Remains free of injury from restraints (Restraint for Interference with Tinsel Machine Operator) Outcome: Progressing Problem: Pain Goal: Takes [...] Free from restraint(s) (Restraint for Interference with Tinsel Machine Operator) Outcome: Progressing Goal: Remains free of injury from restraints (Restraint for Interference with Tinsel Machine Operator) Outcome: Progressing Problem: Pain Goal: Takes [...] Free from restraint(s) (Restraint for Interference with Tinsel Machine Operator) Outcome: Progressing Goal: Remains free of injury from restraints (Restraint for Interference with Tinsel Machine Operator) Outcome: Progressing Problem: Pain Goal: Takes [...] Free from restraint(s) (Restraint for Interference with Tinsel Machine Operator) Outcome: Progressing Goal: Remains free of injury from restraints (Restraint for Interference with Tinsel Machine Operator) Outcome: Progressing Problem: Pain Goal: Takes [...] Free from restraint(s) (Restraint for Interference with Tinsel Machine Operator) Outcome: Progressing Goal: Remains free of injury from restraints (Restraint for Interference with Tinsel Machine Operator) Outcome: Progressing Problem: Pain Goal: Takes [...] Free from restraint(s) (Restraint for Interference with Tinsel Machine Operator) Outcome: Progressing Goal: Remains free of injury from restraints (Restraint for Interference with Tinsel Machine Operator) Outcome: Progressing Problem: Pain Goal: Takes [...] Free from restraint(s) (Restraint for Interference with Tinsel Machine Operator) Outcome: Progressing Goal: Remains free of injury from restraints (Restraint for Interference with Tinsel Machine Operator) Outcome: Progressing Problem: Mechanical Ventilation Goal: [...] time: 1240 Event end time: 1250 Location: [place] [address] [] Triage by phone or secure messaging Rapid response initiated by: [] Rapid response RN [] Family [] Nursing Track Car Operator [] Physician [x] RADAR auto page [] Sepsis auto-page [] RN [] RT [] DIVISION DIRECTOR/PA [] Other: Primary reason for call: [] [...] acute change in condition/VS Additional Comments: RADAR 7 Bedside RN notified of RADAR page [...] Free from restraint(s) (Restraint for Interference with Tinsel Machine Operator) Outcome: Progressing Goal: Remains free of injury from restraints (Restraint for Interference with Tinsel Machine Operator) Outcome: Progressing Problem: Pain Goal: Takes [...] these nursing preferences to the MICU nursing educator. Problem: Discharge Planning Goal: Discharge to home [...] Free from restraint(s) (Restraint for Interference with Tinsel Machine Operator) Outcome: Progressing Goal: Remains free of injury from restraints (Restraint for Interference with Tinsel Machine Operator) Outcome: Progressing Problem: Pain Goal: Takes [...] scan tomorrow. INTERVENTIONAL RADIOLOGY ADVANCED PRACTICE PROCEDURE [facility] A time out was performed and [...] Free from restraint(s) (Restraint for Interference with Tinsel Machine Operator) Outcome: Progressing Goal: Remains free of injury from restraints (Restraint for Interference with Tinsel Machine Operator) Outcome: Progressing Problem: Pain Goal: Takes [...] Free from restraint(s) (Restraint for Interference with Tinsel Machine Operator) Outcome: Progressing Goal: Remains free of injury from restraints (Restraint for Interference with Tinsel Machine Operator) Outcome: Progressing Problem: Pain Goal: Takes [...] Heart Rate: 64 (03/28/25 1000 : Ginger Dewitt, RN) BP: 122/62 (03/28/25 1000 : Ginger Dewitt, RN) Temp: 35.9 C (96.6 F) (03/28/25 0700 : Nathaly Christy) Resp: 12 (03/28/25 1000 : Ginger Dewitt, RN) SpO2: 98 % (03/28/25 1000 : Ginger Dewitt, CHARLES) Relevant updates since rounds: Placed CT and [...] report and patient will be transferred to [place] [address]. Nathaly Glover MD MPH Internal Medicine, PGY1 03/28/25 at 10:21 AM Problem: Pain - Adult Goal: Verbalizes/displays adequate comfort level or baseline comfort level Outcome: Progressing Problem: Skin Goal: Decreased wound size/increased tissue granulation at next dressing change Outcome: Progressing Flowsheets (Taken 03/25/2025 2337) Decreased wound size/increased tissue granulation at next dressing change: Protective dressings over bony prominences Goal: Participates in plan/prevention/treatment measures Outcome: Progressing Flowsheets (Taken 03/25/2025 2337) Participates in plan/prevention/treatment measures: Elevate heels Discuss [...] Free from restraint(s) (Restraint for Interference with Tinsel Machine Operator) Outcome: Progressing Flowsheets (Taken 03/25/20252336) Free from restraint(s) (restraint for interference with medical administrative): ONCE/SHIFT or MINIMUM Every 12 hours: Assess and document the continuing need for restraints Problem: Safety - Medical Restraint Goal: Remains free of injury from restraints (Restraint for Interference with Tinsel Machine Operator) Outcome: Progressing Flowsheets (Taken 03/25/20252336) Remains free of injury from restraints (restraint for interference with medical administrative): Every 2 hours: Monitor safety, psychosocial status, [...] Ensure correct size (line/device) and apply per vamp stitcher instructions Turn/reposition every 2 hours/use positioning/transfer devices [...] Free from restraint(s) (Restraint for Interference with Tinsel Machine Operator) Outcome: Progressing Flowsheets (Taken 03/25/2025 180) Free from restraint(s) (restraint for interference with medical administrative): ONCE/SHIFT or MINIMUM Every 12 hours: Assess and document the continuing need for restraints Every 24 hours: Continued use of restraint requires Licensed Independent Practitioner to perform face to face examination and written order Identify and implement measures to help patient regain control Goal: Remains free of injury from restraints (Restraint for Interference with Tinsel Machine Operator) Outcome: Progressing Flowsheets (Taken 03/25/2025 180) Remains free of injury from restraints (restraint for interference with medical administrative): Determine that other, less restrictive measures have [...] Free from restraint(s) (Restraint for Interference with Tinsel Machine Operator) 03/24/2025 1403 by Mumtaz Abbasi RN Outcome: Progressing 03/24/2025 140 by Mumtaz Abbasi RN Flowsheets (Taken 03/24/2025 1402) Free from restraint(s) (restraint for interference with medical administrative): Every 24 hours: Continued use of restraint requires Licensed Independent Practitioner to perform face to face examination and written order Goal: Remains free of injury from restraints (Restraint for Interference with Tinsel Machine Operator) 03/24/2025 1403 by Mumtaz Abbasi RN Outcome: Progressing 03/24/2025 140 by Mumtaz Abbasi RN Flowsheets (Taken 03/24/2025 1402) Remains free of injury from restraints (restraint for interference with medical administrative): Evaluate the patient's condition at the time [...] Free from restraint(s) (Restraint for Interference with Tinsel Machine Operator) Outcome: Progressing Flowsheets (Taken 03/23/20252127) Free from restraint(s) (restraint for interference with medical administrative): ONCE/SHIFT or MINIMUM Every 12 hours: Assess and document the continuing need for restraints Goal: Remains free of injury from restraints (Restraint for Interference with Tinsel Machine Operator) Outcome: Progressing Flowsheets (Taken 03/23/20252127) Remains free of injury from restraints (restraint for interference with medical administrative): Every 2 hours: Monitor safety, psychosocial status, [...] 03/24 in AM showed RBBB and c/f NV. Repeat EKG showed RBBB and no ST [...] L NC on 03/[address] [facility] oncology for management of new NSCLC and [...] referral was faxed 04/02. Dr. Escobedo at [facility] was messaged for further recommendations on treatment timing with acute rehab, OK with acute rehab before starting chemo. Patient referred to outpatient thoracic onc at [facility] (Dr. Escobedo staff working on scheduling appt) and outpatient rad onc at [facility] w/ Dr. Arroyo. To-do [ ] [...] injury from restraints (Restraint for Interference with Tinsel Machine Operator) Outcome: Met Goal: Free from restraint(s) (Restraint for Interference with Tinsel Machine Operator) Outcome: Not Progressing Flowsheets (Taken 03/22/20252110 by Amado Tolliver RN) Free from restraint(s) (restraint for interference with medical administrative): ONCE/SHIFT or MINIMUM Every 12 hours: Assess and document the continuing need for restraints Problem: Safety - Medical Restraint Goal: Free from restraint(s) (Restraint for Interference with Tinsel Machine Operator) Outcome: Not Progressing Flowsheets (Taken 03/22/20252110 by Amado Tolliver RN) Free from restraint(s) (restraint for interference with medical administrative): ONCE/SHIFT or MINIMUM Every 12 hours: Assess [...] injury from restraints (Restraint for Interference with Tinsel Machine Operator) Outcome: Progressing Flowsheets (Taken 03/22/20252110) Remains free of injury from restraints (restraint for interference with medical administrative): Every 2 hours: Monitor safety, psychosocial status, comfort, nutrition and hydration Goal: Free from restraint(s) (Restraint for Interference with Tinsel Machine Operator) Outcome: Progressing Flowsheets (Taken 03/22/20252110) Free from restraint(s) (restraint for interference with medical administrative): ONCE/SHIFT or MINIMUM Every 12 hours: Assess and document the continuing need for restraints Problem: Safety - Medical Restraint Goal: Remains free of injury from restraints (Restraint for Interference with Tinsel Machine Operator) Outcome: Progressing Goal: Free from restraint(s) (Restraint for Interference with Tinsel Machine Operator) Outcome: Progressing The patient's goals for the shift include kosta The clinical goals for the shift include Improve ability to oxygenate Problem: Pain - Adult Goal: Verbalizes/displays adequate comfort level or baseline comfort level 03/22/2025737 by Jag Posada RN Outcome: Progressing 03/22/2025736 by Jag Posada RN Outcome: Progressing Problem: Safety - Adult Goal: Free from fall injury 03/22/2025737 by Jag Posada RN Outcome: Progressing [...] Ensure correct size (line/device) and apply per vamp stitcher instructions Turn/reposition every 2 hours/use positioning/transfer devices Protective dressings over bony prominences 03/22/2025736 by Jag Posada RN Outcome: Progressing Flowsheets (Taken 03/22/2025736) Promote skin healing: Assess skin/pad under line(s)/device(s) Rotate device position/do not position patient on device Ensure correct size (line/device) and apply per vamp stitcher instructions Turn/reposition every 2 hours/use positioning/transfer devices Protective dressings over bony prominences Problem: Fall/Injury Goal: Not fall by end of shift 03/22/2025737 by Jag Posada RN Outcome: Progressing 03/22/2025736 by Jag Posada RN Outcome: Progressing Goal: Be free from injury by end of the shift 03/22/2025737 by Jag oPsada RN Outcome: Progressing 03/22/2025736 by Jag Posada RN Outcome: Progressing Goal: Verbalize understanding of personal risk factors for fall in the hospital 03/22/2025737 by Jag Posada RN Outcome: Progressing 03/22/2025736 by Jag Posada RN Outcome: Progressing Goal: Verbalize understanding of risk factor reduction measures to prevent injury from fall in the home 03/22/2025737 by Jag Posada RN Outcome: Progressing 03/22/2025736 by aJg Posada RN Outcome: Progressing Goal: Use assistive [...] Will Maintain Patent Airway 03/22/2025737 by Jag Posada, CHARLES Outcome: Progressing 03/22/2025736 by Jag Posada RN [...] injury from restraints (Restraint for Interference with Tinsel Machine Operator) 03/22/2025737 by Jag Posada RN Outcome: Progressing 03/22/2025736 by Jag Posada RN Outcome: Progressing Goal: Free from restraint(s) (Restraint for Interference with Tinsel Machine Operator) 03/22/2025737 by Jag Posada RN Outcome: Progressing 03/22/2025736 by Jag Posada RN Outcome: Progressing documented in this encounter [facility] Work Phone: 04-02-2025 Hospital Discharge instructions Rai Rand MD - 04/02/2025 2:25 PM EDT Images from the original note were not included. Dear Dubose, You were admitted to [facility] on 03/22/2025 due to worsening shortness of breath and right-sided chest pain. A CT scan of your chest at [facility] showed a mass in your right lung that extended near your trachea and blocked your main right airway. There was also some fluid in the space between your lungs and chest wall. The decision was made to transfer you to [facility] for more specialized pulmonary care. On the way, you experienced worsening shortness of breath, and you were intubated and connected to a ventilator. You were in the medical ICU at [facility] from 03/22/2025 to 03/27/2025. You underwent [...] treatment. You were recommending for discharge to half-way facility to improve and rebuild your strength. We have contacted Dr. Amira Escobedo at [facility] to coordinate your care after your discharge from the hospital. INSTRUCTIONS: - please take oxycodone for pain every 4 hours as needed. Please take 5mg (1 tablet) for moderate pain and 10mg (2 tablets) for severe pain. - please attend your important follow up appointments The following attachments cannot be sent through Care Everywhere.Chest Pain, Adult ED (Zambian)documented in this encounter [facility] Work Phone: 04-02-2025 Consult note Formatting of th is note might be different from the original. Reason For Consult Pneumothorax History Of Present Illness 64yoF admitted for acute hypoxic respiratory failure. PMHx Tobacco use disorder Heart failure recovered ejection fraction Ischemic cardiomyopathy Coronary artery disease s/p CABG 2016 Hypertension Atrial fibrillation Chronic obstructive pulmonary disease, [...] 04/02/2025 2:09 PM EDT Associated attestation - Nbaor Sparks MD - 04/02/2025 2:09 PM EDT [...] Ischemic cardiomyopathy Coronary artery disease s/p CABG 2016 Hypertension Atrial fibrillation Chronic obstructive pulmonary disease, [...] Ischemic cardiomyopathy Coronary artery disease s/p CABG 2016 Hypertension Atrial fibrillation Chronic obstructive pulmonary disease, [...] When comparing pm CXR on 03/31 to boiler control room operator film from PET scan on 04/01 it [...] Dubose Age/sex: 64 y.o. Consulting physician: Dr. Dandre Clark Chief complaint: Impairments and acitivities limitations [...] requiring mechanical ventilation. [facility] for 1 week of progressive [...] Therapy Last seen: 03/29 Evaluation: regular/thins, no TECHNICAL WRITER needed REVIEW OF SYSTEMS Constitutional: Denies fever, [...] triceps, wrist extensors, finger flexors, interossei, and field mechanic except b/l EF 4+/5 and EE 4/5 [...] transfer. - For questions, please contact via Clarassance We will follow along with you. Thank you for the consult. Capo Bolanos DO, MBA, PGY-4 Physical Medicine and Rehabilitation Available via Clar[employer] Patient seen and examined with attending Dr. Dandre Clark, who agrees with assessment and plan. [...] much rather be close to home in [facility] [place] and I suspect slower pace of rehab will be more appropriate and could be done there. [facility] still require no chemo.XRT but should refer there IF she gets a 2wk window between treatment. We'll follow meanwhile. Also - consider adding gabapentin to minimize opiates. And consider d/c atorvastatin given chance of myalgia / myopathy and polypharmacy - or add co-Q10 100 hs Dandre Clark M.D, FAAPMR, R-MSK Chief, Division of [...] The patient required intubation, with transfer to [facility] MICU. On 03/24 the patient proceeded [...] Gap 16 mmol/L Albumin 3.0 Low g/dL 03/29/25 08 Magnesium Collected: 03/29/25529 Final result Specimen: Blood, [...] 0.04 x10*3/uL Pathology Review: urgical Pathology Exam: [id number] Order: [id number] Collected 03/24/2025 13:34 Status: Final result Dx: Acute hypoxic respiratory failure Test Result Released: No (inaccessible in [facility]) 0 Result Notes Component FINAL DIAGNOSIS A. LYMPH NODE, PULMONARY 4R, BIOPSY: - Non-small cell carcinoma, favor adenocarcinoma. See note. - See concurrent cytology specimen ([id number]). Note: Tumor cells are positive for TTF-1 (8G7G3) and CK7, while they are negative for p40. The findings support the above diagnosis. PD-L1 immunostain results are reported below. Tumor Block: A1 Preliminary Assessment of Specimen Adequacy for Ancillary Testing: Adequate Viable tumor nuclei: 20% men's custom hair piece consultant: Dr. Peter Shirley. at 1048 EDT [...] Tentative plans to consider follow-up coordination with [facility]'s radiation oncology in [place]. I spent 55 minutes in the professional [...] q6h, Alaina Márquez MD, 2.5 mg at 03/28/25 2110 ampicillin-sulbactam (Unasyn) 3 g in sodium chloride [...] mg, 4 mg, oral, Nightly PRN, Linda Echols, , 4 mg at 03/29/25 0121 Associated Order(s): Inpatient consult to [facility] Adult Supportive Oncology SUPPORTIVE AND PALLIATIVE ONCOLOGY CONSULT SERVICE DATE: 03/28/2025 ASSESSMENT/PLAN: Melissa Dubose is a 64 y.o. female diagnosed with large hilar mass with obstruction of the BECCA bronchus s/p biopsy and bronchial stent with preliminary pathology showing NSCLC . PMH significant for CAD (s/p CABG 2015), HTN, Afib, DM2, HFrEF 2/2 ischemic cardiomyopathy. [facility] for [facility]B and hypoxia. Intubated and transferred to [facility] MICU 03/22/2025 for further evaluation and management [...] medications to patient prior to discharge via [facility] pharmacy. Prescriptions will need to be sent 48-72 hours prior to discharge so that a prior authorization can be completed. Discharge date: unknown pending acute issues Will assess if patient needs an appointment with Outpatient Supportive Oncology as appropriate SIGNATURE: BERNADETTE Gilmore DNP PAGER/CONTACT: Contact information: Supportive and Palliative Oncology Saturday-Saturday 8 AM-5 PM [place] or pager [phone]. After hours and weekends: pager [phone] Inpatient consult to [facility] Adult Supportive Oncology Consult performed by: BERNADETTE Gilmore DNP Consult ordered by: Nneka Van MD PALLIATIVE MEDICINE OUTPATIENT PROVIDER: None CURRENT ATTENDING PROVIDER: Nneka Van MD Medical Oncologist: No care store team member to display Radiation Oncologist: No care store team member to display Primary Physician: Madison Magana [phone] REASON FOR CONSULT/CHIEF CONSULT COMPLAINT: pain management [...] DM2, HFrEF 2/2 ischemic cardiomyopathy. [facility] for SOB and hypoxia. Intubated and transferred to [facility] MICU 03/22/2025 for further evaluation and management [...] of patient, and discussion with primary team Oncology History No history exists. Medical History[1] [...] Value Ventricular Rate 85 Atrial Rate 85 NV Interval 142 QRS Duration 118 QT Interval 378 QTC Calculation(Bazett) 449 P Ramsey 27 R Ramsey 104 T Ramsey 102 QRS Count 14 Q Onset 221 [...] preferences in decision-making including Healthcare Power of Robot Programmer. Introduced the role and philosophy of Supportive and Palliative oncology in the evaluation and management of symptoms during cancer treatment and qualifications for outpatient follow up Provided printed information and resource packet that includes: NCCN Palliative Care 2022 booklet Supportive and Palliative Oncology team flyer [place] Advance Directives forms Caregiver Resource list List of local and national resources for financial, legal, caregiver support Medical Decision Making/Goals of Care/Advance Care Planning: Patient's current clinical condition, including diagnosis, prognosis, and management plan, and goals of care were discussed. Life limiting disease: lung mass, AHRF Family: Supportive father, children, sisters Performance status: Major limitations due to disease process Joys/meaning/strength: Family and [place] Understanding of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 Neut # (Auto) Lymph # (Auto) Perry # (Auto) Eos # (Auto) Baso # (Auto) PT INR APTT PHA Creatinine Clear Sodium Potassium Chloride Carbon Dioxide Anion Gap BUN Creatinine Est GFR (CKD-EPI) POC Glucose 181 POC Glucose Comment Urine Color Urine Appearance Urine pH Ur Specific [place] Urine Protein Urine Glucose (UA) Urine Ketones [...] bypass graft (4) Coronary artery disease involving [place] coronary artery of [place] heart without angina pectoris: Code(s): I25.10 - Atherosclerotic heart disease of [place] coronary artery without angina pectoris (5) Myocardial injury: Code(s): I5A - Non-ischemic myocardial injury (non-traumatic) Plan # Mild acute HF in setting of newly diagnosed HFrEF due to undefined cardiomyopathy # Dilated ischemic cardiomyopathy EF 25% # Moderate to severe MR # Atrial fibrillation [id number] = 5 # Influenza A infection # [...] Recommendations: - LHC completed today shows severe [place] coronary artery disease with patent grafts BALLESTEROS [...] signed by Jayne Vallecillo MD> 11/22/23 152 [facility] Work Phone: 1(994) 572-734903-15-2024 Consult note Author Hernan Siddiqi [facility] November 22, 2023 2:25pm Note Date/Time November 22, 2023 2:2 5pm [facility] [address] [place] [address] Cardiology Consult Note Signed Patient: Melissa Dubose MR#: [id number] : 1960 Acct:[id number] Age/Sex: 63 / F Adm Date: 4 Loc: Room: [address] [place] [address] Type: ADM IN Attending Dr: Winter Norris [...] Patient had bypass surgery in 2013 at [facility], routinely follows with Dr. Parks. She presents [...] in LV function specifically evaluate graft and [place] and coronary anatomy for treatable targets. Review of Systems Review of Systems All other systems reviewed & are negative unless noted below or in HPI Constitutional Constitutional: Reports as per HPI, Reports fatigue and Reports weakness Cardiovascular Cardiovascular: Reports chest pain at rest, Reports dyspnea and Reports orthopnea Respiratory Respiratory: Reports as per HPI [facility] Medical History Myocardial infarction Hypertension Diabetes Surgical History History of back surgery Hx of CABG 3 vessel at [facility] Family History Mother Diabetes Paternal Grandfather Pancreatic [...] Lymph # (Auto) 0.6 L (1.00-4.8) x10E3/uL Perry # (Auto) 0.6 (0.0-0.8) x10E3/uL Eos # [...] bypass graft (4) Coronary artery disease involving [place] coronary artery of [place] heart without angina pectoris: Code(s): I25.10 - Atherosclerotic heart disease of [place] coronary artery without angina pectoris (5) Myocardial injury: Code(s): I5A - Non-ischemic myocardial injury (non-traumatic) Plan Proceed with left heart catheterization plus minus revascularization Documented By: Hernan Siddiqi DO 11/22/23 1417 Signed By: <Electronically signed by Hernan Siddiqi DO> 11/22/23 1425 [facility] Work Phone: 1(888) 277-822703-15-2024 [facility] Progress note Author Winter Norris [facility] November 22, 2023 10:05am Note Date/Time November 22, 2023 10: 01am [facility] [address] [place] [address] Hospitalist Progress Note Signed Patient: Melissa Dubose MR#: [id number] : 1960 Acct:[id number] Age/Sex: 63 / F Adm Date: 4 Loc: 4 Room: [address] [place] [address] Type: ADM IN Attending Dr: Winter Norris [...] Dose Route Start Last Admin Trade Name Ulisesq PRN Reason Stop Dose Admin Acetaminophen 1,000 [...] 86% on room air upon arrival to [facility] emergency room, 4 L nasal cannula applied [...] <Electronically signed by Winter Norris MD> 11/22/23 [facility] Work Phone: 1(757) 705-192703-14-2024 Consult note Author Justine Jacobo [facility] November 21, 2023 4:39pm Note Date/Time November 21, 2023 3:[address] [place] [address] [place] [address] Cardiology Consult Note Signed Patient: Melissa Dubose MR#: [id number] : 1960 Acct:[id number] Age/Sex: 63 / F Adm Date: 4 Loc: 4 Room: [address] [place] [address] Type: ADM IN Attending Dr: Winter Norris MD Copies to: MD Justine West MD Mazhar Rahman, MD~ Cardiology HPI History of Present Illness Consult Date: 11/21/23 HPI: Ms. Dubose is a 63 year old female with the PMH below ike presented to the [facility] ER for chest pain, SOB, cough and [...] easy bleeding, ecchymosis. Skin: Denies rashes, pruritus. [facility] Medical History Myocardial infarction Hypertension Diabetes Surgical History History of back surgery Hx of CABG 3 vessel at [facility] Family History Mother Diabetes Paternal Grandfather Pancreatic [...] Lymph # (Auto) 0.3 L (1.00-4.8) x10E3/uL Perry # (Auto) 0.1 (0.0-0.8) x10E3/uL Eos # [...] bypass graft (4) Coronary artery disease involving [place] coronary artery of [place] heart without angina pectoris: Code(s): I25.10 - Atherosclerotic heart disease of [place] coronary artery without angina pectoris (5) Myocardial [...] <Electronically signed by Justine Jacobo MD> 11/21/23 [facility] Work Phone: 1(268) 188-675403-14-2024 Progress note Author Winter Norris [facility] November 21, 2023 12:12pm Note Date/Time November 21, 2023 12: 09pm [facility] ENTER [address] [place] [address] Event Note Signed Patient: Melissa Dubose MR#: [id number] : 1960 Acct:[id number] Age/Sex: 63 / F Adm Date: 4 Loc: Room: [address] [place] [address] Type: ADM IN Attending Dr: Winter Norris [...] signed by Winter Norris MD> 11/21/23 [facility] Work Phone: 1(680) 936-255803-14-2024 History and physical note Author Isaac Greenwood [facility] November 21, 2023 5:31am Note Date/Time November 21, 2023 3:0 1am [facility] ENTER [address] [place] [address] Hospitalist H&P Signed Patient: Melissa Dubose MR#: [id number] : 1960 Acct:[id number] Age/Sex: 63 / F Adm Date: 4 Loc: Room: [address] [place] [address] Type: ADM IN Attending Dr: Isaac Greenwood DO Copies to: MD Karen West, JANELL Greenwood, DO~ HPI DATE OF EXAMINATION: 11/21/23 CHIEF COMPLAINT: Chest pain, sob, N/V/D, fever, cough HISTORY OF PRESENT ILLNESS: Ms. Dubose is a 63-year-old female that presented to the [facility] emergency room for complaints of chest pain, [...] CABG-3 vessel, T2DM, HTN. EKG at [facility] emergency room shows A-fib with RVR. She [...] 125 Solu-Medrol, Zofran Tamiflu. She follows with [facility] cardiology however they had no beds available. She agreed to transfer to the closest facility which is [facility]. Patient was transferred here to the progressive floor under the care of hospitalist team. Review of Systems Review of Systems Review of systems: A 10 point review of systems was obtained, negative unless noted in the HPI or below. [facility] Medical History (Updated 11/21/23 @ 03:40 by Karen Mays APRN) Myocardial infarction Hypertension Diabetes Surgical History (Updated 11/21/23 @ 03:31 by Karen Mays APRN) History of back surgery Hx of CABG 3 vessel at [facility] Family History (Updated 11/21/23 @ 03:31 by [...] 86% on room air upon arrival to [facility] emergency room, 4 L nasal cannula applied [...] <Electronically signed by Isaac Greenwood DO> 11/21/23 72[address] [facility] Work Phone: Evaluation + Plan note No data available for this section [facility] evaluation + Plan note Future Appointments Appointment Date:09/24/2024 01:45:00 PM Scheduled Provider: Location:[facility] Appointment Type:Surgery FT [facility] Evaluation note* Diagnosis Onset Date Resolution Status Acute hypoxic respiratory failure acute Atrial fibrillation acute Chest pain acute [id number] acute Diabetes acute Headache acute HFrEF (heart failure with reduced ejection fraction) acute Hypertension acute Influenza A acute Myocardial injury acute NSTEMI (non-ST elevated myocardial infarction) acute S/P CABG (coronary artery bypass graft) acute Shortness of breath acute [facility] Work Phone: Evaluation note* Diagnosis Malignant neoplasm of upper lobe, right bronchus or lung documented in this encounter [facility] Work Phone: Evaluation note* Diagnosis Malignant neoplasm of upper lobe, right bronchus or lung- Primary Malignant neoplasm of upper lobe, right bronchus or lung documented in this encounter [facility] Work Phone: Evaluation note* Diagnosis Encounter for antineoplastic radiation therapy Malignant neoplasm of right main bronchus (Multi) documented in this encounter [facility] Work Phone: Evaluation note* Diagnosis Acute hypoxic [...] right lung (Multi) documented in this encounter [facility] Work Phone: Evaluation note* Diagnosis Hypotension, unspecified hypotension type- Primary Chronic heart failure, unspecified heart failure type (CMS-HCC) Primary hypertension Unspecified essential hypertension Chronic obstructive pulmonary disease, unspecified COPD type (CMS-HCC) Malignant neoplasm of unspecified part of right bronchus or lung (CMS-HCC) [facility] Diagnosis Malignant neoplasm of unspecified part of right bronchus or lung (CMS-HCC)- Primary Nausea and vomiting, unspecified vomiting type Chronic obstructive pulmonary disease, unspecified COPD type (CMS-HCC) Muscle weakness (generalized) Unsteadiness on feet Gastrointestinal hemorrhage, unspecified gastrointestinal hemorrhage type Atrial fibrillation, unspecified type (CMS-HCC) documented in this encounter [facility]* Diagnosis Acute respiratory failure with hypoxia (CMS-HCC)- Primary Malignant neoplasm of unspecified part of right bronchus or lung (CMS-HCC) Chronic obstructive pulmonary disease, unspecified COPD type (CMS-HCC) Diabetic polyneuropathy associated with type 2 diabetes mellitus (CMS-HCC) Muscle weakness (generalized) Chronic heart failure, unspecified heart failure type (CMS-HCC) Primary hypertension Unspecified essential hypertension Atrial fibrillation, unspecified type (CMS-HCC) Unsteadiness on feet Atherosclerosis of [place] coronary artery of [place] heart without angina pectoris Noninfectious gastroenteritis, unspecified type Pneumothorax, unspecified type Cigarette nicotine dependence with nicotine-induced disorder Gastroesophageal reflux disease without esophagitis Esophageal reflux Ischemic cardiomyopathy Other specified forms of chronic ischemic heart disease documented in this encounter [facility]* Diagnosis Malignant neoplasm of unspecified part of right bronchus or lung (CMS-HCC)- Primary Chronic obstructive pulmonary disease, unspecified COPD type (CMS-HCC) Acute respiratory failure with hypoxia (CMS-HCC) Chronic heart failure, unspecified heart failure type (CMS-HCC) Muscle weakness (generalized) Other fatigue Unsteadiness on feet Diabetic polyneuropathy associated with type 2 diabetes mellitus ([facility]-HCC) Nausea and vomiting, unspecified vomiting type documented in this encounter [facility] noteNo assessment information available [facility] Work Phone: Evaluation note* Diagnosis Onset Date Resolution Status Admit Date Adenocarcinoma of lung, stage 4 acut e May 05, 2025 12:34pm Cancer related pain acute Augus t 2024 12:34pm Chronic respiratory failure with hypoxia, on home oxygen therapy acute May 05, 2025 12:34pm Encounter for antineoplastic immunotherapy acute May 05 12:34pm Encounter for coordination o f complex care acute May 05 12:34pm Non-small cell lung cancer acute May 05, 2025 12:59pm [facility] Work Phone: Hospital Discharge instructions No data available for this section [facility] InstructionsNot on filedocumented in this encounter [facility] filedocumented in this encounter [facility] filedocumented in this encounter [facility] No data available for this section [facility] Milly progress note Author Harriet Arroyo [facility] Note Date/Time May 05, 2025 2: 14pm [facility] [place] [address] Cancer Center Note Signed Patient: Melissa Dubose MR#: [id number] : 1960 Acct:[id number] Age/Sex: 64 / F Type: REG AMB Date of Service: 05/05/25 Copies to: MD Madison Douglas MD~ Assessment & Plan (1) Non-small cell lung cancer: Plan: Proceed to systemic therapy under the care of Medical Oncology Assessment: 64-year-old female with stage IV non-small cell lung cancer, favoring adenocarcinoma with large right hilar mass status post stenting and inpatient radiation 8 Koenig x 1 at the end of March 2025. I reviewed her PET scan which show systemic disease. Patient is appropriately planned for pembrolizumab underthe care of medical oncology. No clear role for radiation currently. We discussed that should she experience additional respiratory symptoms or focal sites of pain radiation can be used palliatively as needed. Patient communicates her understanding. History of Present Illness HPI 64-year-old female with multiple medical comorbidities is admitted to March 28, 2025 for acute hypoxic respiratory failure requiring mechanical ventilation. Patient was transferred from outside facility with CT chest was negative for PE however notable for right hilar mass measuring 5 cm invading into the adjacent mediastinum abutting the lateral aspect of the trachea narrowing the right mainstem bronchus with the proximal right upper lobe bronchus completely occluded. March 24, 2025 patient underwent bronchoscopy with stenting and biopsy. Pathology confirmed non-small cell lung cancer. Favor adenocarcinoma March 26, 2025 was weaned and extubated with stable respiratory status. March 28, [address] showed a large right hilar mass with extension into the mediastinum and intraluminal extension into the posterior aspect of the SVC withassociated mediastinal and bilateral supraclavicular lymphadenopathy with right upper lobe collapse consistent with the biopsy-proven lung malignancy with metastatic lymphadenopathy. Loss of fat planes with the esophagus and ascendingaorta. Interval placement of a right bronchial stent with resolution of the bronchial narrowing. CT of the abdomen and pelvis showed a 2 cm left adrenal nodule as well as prominent portal caval and aortocaval lymph nodes. MRI of the brain was negative for intracranial metastasis April 01, 2022 patient received 8 Koenig x 1 palliative radiation to the right lung April 02, 2025 PET again showed the large necrotic FDG avid mediastinal mass involving the right upper lobe bronchus with postobstructive atelectasis. Multiple FDG avid cervical thoracic abdominopelvic lymph nodes consistent with el metastasis. FDG avid focus within the right mid humeral diaphysis concerning for osseous metastasis. Multiple soft tissue deposits within the subcutaneous tissues of the chest abdomen and pelvis including the left breast within the peritoneum. FDG avid lesion in the left adrenal gland concerning foradrenal metastasis. Moderate right pneumothorax. Mild FDG avid focus in the right parotid gland favored to represent a benign etiology such as a Warthin's tumor or pleomorphic adenoma. [id number] hypoattenuating lesion in the right thyroid lobe. Patient met with medical oncology today and is planned for Keytruda. She statesher breathing has improved since the addition of supplemental oxygen. She does have pain and has been referred to palliative care. Intake Vitals/Pain Assessment 05/05/25 12:42 Height 5 ft 10 in Weight 100.244 kg Intake Visit Reasons: New Med Onc/Rad Onc Patient, Right Lung NSCLC Allergies No Known Allergies Allergy (Verified 05/05/25 12:44) Nurse's Note: New patient here, referred by Dr. Gilliland. [facility] Medical History Medical History Non-small cell lung cancer HFrEF (heart failure with reduced ejection fraction) Atrial fibrillation Myocardial infarction Hypertension Diabetes Surgical History Surgical History S/P CABG (coronary artery bypass graft) History of back surgery Hx of CABG 3 vessel at [facility] Family History Family History Mother Diabetes Paternal Grandfather Pancreatic cancer Daughter Diabetes Social History Social History (Updated 05/05/25 @ 12:52 by Nova Arias [facility]) Smoking status: Former smoker Nicotine containing products detail: 2 months ago Within the past year, how often did you have a drink containing alcohol: never AUDIT-C Alcohol total score: 0 AUDIT-C Alcohol score interpretation: A score less than 3 is consistent with normal alcohol consumption. In the past 12 months, have you used illegal drugs or prescription drugs for non-medical reasons?: No Physical Exam EXAM Physical Exam: KPS 80 General: alert female in wheelchair, in no acute distress HEENT: normocephalic, extra ocular movements intact, Lungs: normal work of breathing supplemental O2. Mildly decreased breath soundsupper lobes bilaterally but otherwise clear. Abdomen: non acute MSK: extremities within normal limits Neuro: grossly intact Social Determinants of Health Screening SDOH last assessed in clinic: 05/05/25 Will the patient participate in the screening?: Yes Do you worry about having a steady place to live?: No In the past 12 months, have you had to go without electric, gas, oil, or water in your home?: No Have you or anyone in your house had to go without enough food to eat?: No Has lack of reliable transportation kept you from medical appointments or from doing things needed for daily living?: No Has anyone in your support network made you feel unsafe for any reason?: No Does the patient want assistance with any of the above?: No Dictated By: Harriet Arroyo MD DD/ 10 Signed By: <Electronically signed by Harriet Arroyo MD> 05/05/25 1411 [facility] Work Phone: Rehmiy for referral (narrative)No reason for referral [facility] Work Phone: Reeuuw for visit Narrative* Auth/Cert Specialty Diagnoses / Procedures Referred By Contac t Referred To Contact Diagnoses Hilar Lung Mass Procedures [place] [address] [place] [address] Phone: tel: fax: [facility] [address] [address] [place] [address] Referral ID Status Reason Start Date Expiration Date Visits Re quested Visits Authorized [id number] 1 1 [facility] Work Phone: Summary Purpose Family History No Family History Records Found Relationship Condition Age at Onset Recorded Date/T carroll Not Specified Diabetes mellitus Unknown Not Specified Malignant neoplasm of pancreas Unknown daughter Diabetes mellitus Unknown Relationship Condition Age at Onset Recorded Date/T carroll mother Diabetes mellitus Unknown paternal grandfather Malignant neoplasm of pancreas Un known daughter Diabetes mellitus Unknown Advance Directives No Advanced Directives Records Found Advance Directive Response Recorded Date/ Time Advance Directives No November 20 1:29am Date Activated Date Inactivated Comments 03/22/2025 [...] respir atory failure Atrial fibrillation Chest pain [id number] Diabetes Headache HFrEF (heart failure with reduced ejection fraction) Hypertension Influenza A Myocardial injury NSTEMI (non-ST elevated myocardial infarction) S/P CABG (coronary artery bypass graft) Shortness of breath Chief Complaint Admit Date Unknown April 28, 2025 10 :30pm Chief Complaint Admit Date Unknown April 28, 2025 10 :30pm NEW NSCLC rt lung May 05, 2025 12 :34pm NSCLC RT LUNG May 05, 2025 12 :43pm New Med Onc/Rad Onc Patient, Right Lung NSCLC May 05, 2025 12:59pm Reason for Visit Admit Date Adenocarcinoma of lung, stage 4 April 102024 12:34pm Cancer related pain May 05, 2025 12 :34pm Chronic respiratory failure with hypoxia, on home oxygen therapy May 05, 2025 12:34pm Encounter for antineoplastic immunothera py May 05, 2025 12:34pm Encounter for coordination of complex ca re May 05, 2025 12:34pm Non-small cell lung cancer May 05, 2025 12:59pm Additional Source Comments INFORMATION SOURCE (unrecogn ized section and content) DATE CREATED AUTHOR 03/05/2018 [facility] DATE CREATED AUTHOR AUTHOR'S ORGANIZ ATION 01/24/2023 [facility] DATE CREATED AUTHOR AUTHOR'S ORGANIZ ATION 06/04/2024 [facility] DATE CREATED AUTHOR AUTHOR'S ORGANIZ ATION 08/25/2024 [facility] DATE CREATED AUTHOR AUTHOR'S ORGANIZ ATION 09/22/2024 [facility] DATE CREATED AUTHOR AUTHOR'S ORGANIZ ATION 09/27/2024 [facility] DATE CREATED AUTHOR AUTHOR'S ORGANIZ ATION 09/29/2024 [facility] DATE CREATED AUTHOR AUTHOR'S ORGANIZ ATION 10/01/2024 [facility] DATE CREATED AUTHOR AUTHOR'S ORGANIZ ATION 02/13/2025 [facility] DATE CREATED AUTHOR AUTHOR'S ORGANIZ ATION 03/31/2025 [facility] DATE CREATED AUTHOR AUTHOR'S ORGANIZ ATION 04/22/2025 [facility] DATE CREATED AUTHOR AUTHOR'S ORGANIZ ATION 05/07/2025 [facility] Care Teams (unrecognized sec tion and content) [...] Jones MD Other Provider Active Start: M 2023 Justine Jacobo MD Attending Provider, Other Provider Active Start: November 21, 2023 Jayne Vallecillo MD Other Provider Active Start: November 21, 2023 [employer] Machine Operator Relationship Specialty Start Date End Date Madison Magana MD [address] [id number] PCP - General Family Medicine 11/21/23 [employer] Machine Operator Relationship Specialty Start Date End Date Madison Magana MD [address] [place] [address] PCP - General Family Medicine 11/21/23 [employer]og Machine Operator Relationship Specialty [place] [address] [place] [address] PCP - General Family Medicine 11/21/23 [employer]og Machine Operator Relationship Specialty Start Date End Date Madison Magana MD [address] [place] [address] PCP - General Family Medicine 11/21/23 Team Status: Inactive Member Role Status Dates Niurka Russ MD Attending Provider Active Sta rt: April 28, 2025 End: April 28, 2025 Team Status: Active Member Role Status Dates Madison Magana MD Primary Care Provider Active Start: May 05, 2025 Amira Escobedo MD Attending Provider Active Start: May 05, 2025 Shantanu Gilliland MD Referring Provider Active Star t: May 05, 2025 Team Status: Active Member Role Status Briana Magana MD Primary Care Provider Active Start: May 05, 2025 Amira Escobedo MD Attending Provider Active Start: May 05, 2025 Shantanu Gilliland MD Referring Provider Active Star t: May 05, 2025 Harriet Arroyo MD Other Provider Active St art: May 05, 2025 Team Status: Inactive Member Role Status Briana Magana MD Primary Care Provider Active Start: May 05, 2025 End: May 05, 2025 Harriet Arroyo MD Attending Provider Active Start: May 05, 2025 End: May 05, 2025 Shantanu Gilliland MD Referring Provider Active Star t: May 05, 2025 End: May 05, 2025 Team Status: Inactive Member Role Status Briana Magana MD Primary Care Provider Active Start: May 05, 2025 End: May 05, 2025 Amira Escobedo MD Attending Provider Active Start: May 05, 2025 End: May 05, 2025 Shantanu Gilliland MD Referring Provider Active Star t: May 05, 2025 End: May 05, 2025 Reason for Visit (unrecogniz ed section and content) Reason Comments OTV inpatient Scheduled Active and Recently Administ ered Medications (unrecognized section and content) Medication Order 04/05/2025 04/06/2025 04/07/2025 albuterol 2.5 mg /3 mL (0.083 %) nebulizer solution 2.5 mg 2.5 mg, nebulization, 3 times daily RT, First dose (after last modification) on Sat03/30/25 at 0900 1009 (Given - Provider: Patricia Aragon CRT)1537 (Given - Provider: Patricia Aragon CRT)2030 (Given - Provider: Ryan Farmer RN) 0951 (Given - Provider: Linda Francis RN)1459 (Given - Provider: Patricia Aragon CRT)2126 (Not Given - Provider: Vanessa Davies, BURR[employer] MARKER AXLE - Reason: Patient/family refused - Comment: pt asleep) 0916 (Given - Provider: Geovanna Faulkner, BURR[employer] MARKER AXLE)1500 (Due)2100 (Due) apixaban (Eliquis) tablet 5 mg 5 mg, oral, 2 times daily, First dose on Sat03/25/25 at 0900 0827 (Given - Provider: Marichuy Quan RN)2030 (Given - Provider: Ryan Farmer RN) 0906 (Given - Provider: Linda Francis, CHARLES)203 (Given - Provider: Ilene Clark, CHARLES) 0855 (Given - Provider: Jaimee Garcia, CHARLES)2100 (Due) atorvastatin (Lipitor) tablet 40 mg 40 mg, oral, Daily, First dose on Sat03/22/25 at 0900 0826 (Given - Provider: Marichuy Quan RN) 0906 (Given - Provider: Linda Francis, CHARLES) 0856 (Given - Provider: Jaimee Garcia, CHARLES) ezetimibe (Zetia) tablet 10 mg 10 mg, oral, Daily, First dose on Sat03/22/25 at 0900 0826 (Given - Provider: Marichuy Quan RN) 0950 (Given - Provider: Linda Francis, CHARLES) 0856 (Given - Provider: Jaimee Garcia, CHARLES) insulin lispro injection 0-5 Units 0-5 Units, [...] per sliding scale AND then contact provider. 08 (Given - Provider: Marichuy Quan RN)1339 (Given [...] RN) 0906 (Given - Provider: Linda Francis RN)203 (Given - Provider: Ilene Clark RN) 0855 (Given - Provider: Jaimee Garcia RN)2100 (Due) pantoprazole (ProtoNix) EC tablet 40 mg(Linked Group 1) 40 mg, oral, Daily before breakfast, First dose on Sat03/22/25 at 0700, Use pantoprazole tablet if patient can take meds orally. Do not crush, chew, or split. 0730 (Given - Provider: Ryan Farmer RN) 0730 (Given - Provider: Ryan Farmer RN) 0616 (Given - Provider: Ilene Clark, CHARLES) polyethylene glycol (Glycolax, Miralax) packet 17 g 17 g, oral, 2 times daily, First dose (after last modification) on Sat04/06/25 at 1000, Bowel Regimen - for prevention of constipation. 1133 (Given - Provider: Linda Francis RN)2033 (Not Given - Provider: Ilene Clark RN - Reason: Patient/family refused) 0905 (Not Given - Provider: Jaimee Garcia RN - Reason: Patient/family refused)2100 (Due) sacubitriL-valsartan (Entresto) 97-103 mg per tablet 1 tablet 1 tablet, oral, 2 times daily, First dose on Sat03/29/25 at 2100, Contraindicated in combination with SCOUT inhibitors. Ensure a minimum of 36 hours between any SCOUT inhibitor dose and sacubitril-valsartan. 0826 (Given - Provider: Marichuy Quan RN)2030 (Given - Provider: Ryan Farmer RN) 0951 (Given - Provider: Linda Francis, CHARLES)2202 (Given - Provider: Ilene Clark, RN) 0856 (Given - Provider: Jaimee Garcia, RN)2100 (Due) sennosides-docusate sodium (Aide-Colace) 8.6-50 mg per tablet 1 tablet 1 tablet, oral, 2 times daily, First dose on Sat04/06/25 at 1000 1132 (Given - Provider: Linda Francis RN)2034 (Given - Provider: Ilene Clark, CHARLES) 0855 (Given - Provider: Jaimee Garcia, CHARLES)2100 (Due) sodium chloride 3 % nebulizer solution 3 mL 3 mL, nebulization, 3 times daily RT, First dose (after last modification) on Sat03/30/25 at 0900 1009 (Given - Provider: Patricia Aragon, EAR MOLD LABORATORY TECHNICIAN)1537 (Given - Provider: Patricia Aragon, EAR MOLD LABORATORY TECHNICIAN)2040 (Not Given - Provider: Ryan Farmer RN - Reason: Medication not available) 1103 (Not Given - Provider: Patricia Aragon EAR MOLD LABORATORY TECHNICIAN - Reason: Patient not available)1459 (Given - Provider: Patricia Aragon, EAR MOLD LABORATORY TECHNICIAN)2127 (Not Given - Provider: Vanessa Davies, BURR[employer]ER [employer]LE - Reason: Patient/family refused - Comment: pt asleep) 0916 (Given - Provider: Geovanna Faulkner, BURR[employer] MARKER AXLE)1500 (Due)2100 (Due) spironolactone (Aldactone) tablet 12.5 mg 12.5 mg, oral, Daily, First dose on Sat03/29/25 at 1315 0826 (Given - Provider: Marichuy Quan RN) 0906 (Given - Provider: Linda Francis, CHARLES) 0902 (Given - Provider: Jaimee Garcia, CHARLES) tiZANidine (Zanaflex) tablet 4 mg 4 mg, oral, Nightly, First dose (after last modification) on Sat03/30/25 at 2100 2029 (Given - Provider: Ryan Farmer, CHARLES) 2033 (Given - Provider: Ilene Clark RN) 2100 (Due) PRN Medication Order 04/05/2025 04/06/2025 04/07/2025 acetaminophen (Tylenol) tablet 975 mg 975 mg, oral, Every 8 hours PRN, pain mild (1-3), first line, Starting on Sat03/30/25 at 1259, If ordered PRN for pain, nurse is permitted to administer this medication for higher pain scores based on patient preference? Yes 1533 (Given - Provider: Marichuy Quan, CHARLES) 0904 (Given - Provider: Linda Francis RN) benzocaine-menthol (Cepastat Sore Throat) lozenge 1 lozenge [...] RN)2034 (Given - Provider: Ilene Clark RN) 0856 (Given - Provider: Jaimee Garcia RN) oxygen (O2) therapy inhalation, Continuous - O2/gases, other, Starting on Sat03/29/25 at 2010, Device: High Flow Nasal Cannula (HFNC), [facility] TYPE: Bubbler/LPM Flow only, Rate in liters per minute: Other, Custom Value: 5lpm, Keep O2 Sat Above: 92% 0845 ([employer] - Provider: Linda Francis, RN) phenyleph-min oil-petrolatum (Preparation H) 0.25-14-74.9 % [...] if patient is unable to take orally. Goals (unrecognized section and content) Goals may be documented in a n alternate section FOR RECORDS PERTAINING TO PATIENTS WHO ARE [...] BE BASED ON THE PRIMARY CLINICAL RECORDS. [facility]. provides no warranty or guarantee of the accuracy or completeness of information in this document.
[2025-05-12 20:28] LABS: Glucose Urine UA NEGATIVE (NEGATIVE)
[2025-05-12 20:44] LABS: Cast Seen? NONE SEEN #/LPF (NONE SEEN); Crystals Seen? None Seen #/HPF (None Seen)
[2025-05-12 20:46] LABS: Urine Culture Indicated NO
[2025-05-12] MEDS: ACETAMINOPHEN 500 MG TABLET 1000 MG PO (20:59)
[2025-05-12] MEDS: FENTANYL CITRATE/PF 100 MCG/2 ML VIAL IV (22:18)
== END 2025-05-12 22:30 | disposition short-term general hospital (02) ==
PROVIDERS: Physician Assistant; Emergency Provider Student in an Organized Health Care Education/Training Program; PCP Family Medicine
DX: S06.310A Contusion and laceration of right cerebrum without loss of consciousness, initial encounter (principal); R51.9 Headache, unspecified; R07.89 Other chest pain; R53.1 Weakness; C34.90 Malignant neoplasm of unspecified part of unspecified bronchus or lung
CPT/HCPCS: 36415; 70450; 80048; 81001; 84484; 85025; 93005; 96374; 96375; 96376; 99285; J2405; J3010